=== PATIENT | male | born 1960 | race American Indian/Alaskan Native ===

== ENCOUNTER 2017-11-07 20:52 | Emergency (ER) | payer OTHER ==
[~2017-11-07] VITALS: Ht 177.8 cm; Wt 124.7 kg
[~2017-11-07 20:52] MED LIST: ARTHRITIS PAIN650 M1 PO; CYCLOBENZAPRINE10 MG PO; HYDROCODON-ACE1 EA10 PO; LEVETIRACETAM1000 MG PO; LIDOCAINE30 G TOP; LORAZEPAM INT2 MG/ML PO; MAPAP325 MG PO; NAPROXEN500 MG PO; NORCO 5-325 TA1 EACH PO; ONCE DAILY1 EACH PO; PAROXETINE HCL20 MG PO; POLYETHYLENE G255 GM PO; SEROQUEL25 MG PO; THIAMINE HCL100 MG PO; VALIUM5 MG PO; VITAMIN B-1100 MG PO
--- OUTSIDE RECORDS SUMMARY | 2017-11-07 21:52 | XMS | Clinical Summary ---
Demographics + + + | Address | [address] | | | [place] [address] | + + + | Home Phone | | + + + | Preferred Language | Unknown | + + + | Marital Status | Single | + + + | Sabianist Affiliation | Unknown | + + + | Race | White | + + + | Ethnic Group | Not or | + + + Author + + + | Author | NON REVENUE LOCATIONS | + + + | Organization | NON REVENUE LOCATIONS | + + + | Address | Unknown | + + + | Phone | Unavailable | + + + Support + + +---------+ + | Name | Relationship | Address | Phone | + + +---------+ + | LOR MCGUIRE & | ECON | Unknown | | | KRISTY | | | | + + +---------+ + Care Team Providers + +------+ + | Care Drug Room Operator Name | Role | Phone | + +------+ + PP | Unavailable | + +------+ + Source Comments BATSHEVA is fully live on both [facility] Allergies + + + + + + | Active Allergy | Reactions | Severity | Noted | Comments | | | | | Date | | + + + + + + | Penicillins | Wheez/Dyspnea, | High | 03/13/20 | | | | Pruritus, Rash | | 10 | | + + + + + + Current Medications Not on file Active Problems + + + | Problem | Noted Date | + + + | Cirrhosis (HCC) | 03/13/2010 | + + + | Esophageal varices (HCC) | 03/13/2010 | + + + Family History + + +------+ + | Medical History | Relation | Name | Comments | + + +------+ + | Hypertension | Mother | | | + + +------+ + + +------+--------+ + | Relation | Name | Status | Comments | + +------+--------+ + | Mother | | | | + +------+--------+ + Social History + +-------+ +--------+------+ | Tobacco Use | Types | Packs/Day | Years | Date | | | | | Used | | + +-------+ +--------+------+ | Never Smoker | | | | | + +-------+ +--------+------+ + + +---------+ + | Alcohol Use | Drinks/We | oz/Week | Comments | | | ek | | | + + +---------+ + | No | | | Says he quit drinking when he had a | | | | | variceal bleed (10/2008) | + + +---------+ + + + + | Sex Assigned at | Date Recorded | | | | + + + | Not on file | | + + + Last Filed Vital Signs + + + + | Vital Sign | Reading | Time Taken | + + + + | Blood Pressure | 104/65 | 03/13/2010 8:35 AM PDT | + + + + | Pulse | 97 | 03/13/2010 8:35 AM PDT | + + + + | Temperature | 36.6 C (97.8 F) | 03/13/2010 8:35 AM PDT | + + + + | Respiratory Rate | 16 | 03/13/2010 8:35 AM PDT | + + + + | Oxygen Saturation | - | - | + + + + | Inhaled Oxygen | - | - | | Concentration | | | + + + + | Weight | 120.2 kg (265 lb) | 03/13/2010 8:35 AM PDT | + + + + | Height | 176.5 cm (5' 9.5") | 03/13/2010 8:35 AM PDT | + + + + | Body Mass Index | 38.57 | 03/13/2010 8:35 AM PDT | + + + + Plan of Treatment + + + + + | Health Maintenance | Due Date | Last Done | Comments | + + + + + | INFLUENZA VACCINE | | | | | (FLU SHOT) | 7 | | | + + + + + Results Not on filefrom Last 3 Months
--- OUTSIDE RECORDS SUMMARY | 2017-11-07 21:52 | XMS | Clinical Summary ---
Demographics + + + | Address | [address] | | | [place] [address] | + + + | Home Phone | | + + + | Preferred Language | Unknown | + + + | Marital Status | Single | + + + | Yarsanism Affiliation | Unknown | + + + [...] Team Providers + +------+ + | Care Dub Room Engineer Name | Role | Phone | + +------+ + PP | Unavailable | + +------+ + Source Comments BATSHEVA is fully live on both [facility] and [facility]Patient.[facility] Allergies + + + + + + [...]
[2017-11-07] MEDS ORDERED: CEPHALEXIN500 MG PO (23:55)
[2017-11-07] MEDS ORDERED: MAXZIDE 37.5 MG-1 EA PO (23:55)
== END 2017-11-08 00:01 | disposition home or self-care (01) ==
LOC: ED 20:52
DX: R60.0 Localized edema (principal); E11.9 Type 2 diabetes mellitus without complications; Z88.0 Allergy status to penicillin; Z79.899 Other long term (current) drug therapy
CPT/HCPCS: 71045; 80053; 81001; 83880; 85025; 96374; 99283

== ENCOUNTER 2019-08-24 04:59 | Emergency (ER) | payer OTHER ==
[~2019-08-24] VITALS: Ht 177.8 cm; Wt 124.7 kg
--- OUTSIDE RECORDS SUMMARY | ~2019-08-24 | XMS | Encounter Summary ---
Demographics + + + | Address | [address] | | | [place] [address] | + + + | Home Phone | | + + + | Preferred Language | Unknown | + + + | Marital Status | Single | + + + | Adventist Affiliation | Unknown | + + + | Race | White | + + + | Ethnic Group | Not or | + + + Author + + + | Author | [facility] | + + + | Organization | [facility] | + + + | Address | [...] Team Providers + +------+ + | Care Granular Operator Name | Role | Phone | [...] | 2009 | on | Center at [facility] [address] | ([place] 05/30/2010 no | | | | [address] | [address] [place], [place] | HCC) | | | | Mailcode: OCD | [address] | | | | | [facility] | [phone] | | | | | and Healing, | | | | | | [address] | | | | | | [place], [place] | | | | | | [address] | | | | | | [phone] | | | +--------+ + + + [...]
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
--- OUTSIDE RECORDS SUMMARY | ~2019-08-24 | XMS | Encounter Summary ---
Demographics + + + | Address | [address] | | | [place] [address] | + + + | Home Phone | | + + + | Preferred Language | Unknown | + + + | Marital Status | Single | + + + | Tenriism Affiliation | Unknown | + + + [...] Team Providers + +------+ + | Care Medical Technologist Generalist Name | Role | Phone | + [...] | Transcriptions | + + | Interface, Drafter Seismograph In - 04/16/2006 1:08 AM PDT | | [address] | | [place], [place] [phone] | | [facility]ORDMed Rec No.: | | [id number] Date: [...] be done | | [place]. [place] were happy to splint him if [...] isgoing to follow up | | in [place], although, if cares to come back here, wewill be happy to see him in Dr. | | Rodo Maldonado, adult orthopedic clinic.Wade Villalta M.D.FARTUN/ellyoD: 02/17/2003T: | | 02/17/2003 12:31 [id number] | |OPERATIONS PERFORMED: The patient was taken [...] is | |going to follow up in [place], although, if cares to come back here, we | |will be happy to see him in Dr. Rodo Maldonado, adult orthopedic clinic. | | | | | | | |Wade Villalta M.D. | | | |[place] | | | | P | |[phone] | + + documented in this encounter Visit Diagnoses Not on filedocumented in this encounter"
--- OUTSIDE RECORDS SUMMARY | ~2019-08-24 | XMS | Encounter Summary ---
Demographics + + + | Address | [address] | | | [place] [address] | + + + | Home Phone [...] Author + + + | Author | [facility] | + + + | Organization | [facility] | + + + | Address [...] Team Providers + +------+ + | Care Emergency Veterinarian Name | Role | Phone | + [...] + + | 12/17/ | Documentati | Transplant | Kennedi Doyle | Liver Transplant | | 2009 | on | Coordinators [address] Jaylene Light, RN [address] | Referral (does not | | | | [address] [facility] | [facility] [address] | meet criteria) | | | | Rd [place], [place] | [place], [place] | | | | | [address] | [address] | | | | | [phone] | | | +--------+ + + + [...]
--- OUTSIDE RECORDS SUMMARY | ~2019-08-24 | XMS | Encounter Summary ---
Demographics + + + | Address | [address] | | | [place] [address] | + + + | Home Phone | | + + + | Preferred Language | Unknown | + + + | Marital Status | Single | + + + | Anglican Affiliation | Unknown | + + + | Race | White | + + + | Ethnic Group | Not or | + + + Author + + + | Author | [facility] | + + + | Organization | [facility] | + + + | Address | [...] Team Providers + +------+ + | Care Contact Center Professional Name | Role | Phone | + [...] + + | 01/23/ | Documentati | Transplant | Kennedi Doyle | Other (Hep clinic | | 2009 | on | Coordinators [address] | Kuldeep, RN [address] | appointment) | | | | [address] | [address] | | | | | Rd [place], [place] | [place], [place] | | | | | [address] | [address] | | | | | [phone] | | | +--------+ + + + [...]
--- OUTSIDE RECORDS SUMMARY | ~2019-08-24 | XMS | Encounter Summary ---
Demographics + + + | Address | [address] | | | [place] [address] | + + + | Home Phone [...] + + + | Author | [facility] | + + + | Organization | [facility] | + + + | [...] Team Providers + +------+ + | Care Mechanical Spreader Operator Name | Role | Phone | + +------+ + PCP | Unavailable | + +------+ + Encounter Details +--------+ + + + + | Date | Type | Department | Care Team | Description | +--------+ + + + + | 03/25/ | Abstract | [facility] | Azeem Dietrich | | | 2010 | | [place] [address] [address] | | | | | [address] | [place], [place] | | | | | Mailcode: OC8D | [address] | | | | | [facility] | [phone] | | | | | and [address], | | | | | | [address] | | | | | | [place], [place] | | | | | | [address] | | | | | | [phone] | | | +--------+ + + + [...]
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
--- OUTSIDE RECORDS SUMMARY | ~2019-08-24 | XMS | Encounter Summary ---
Demographics + + + | Address | [address] | | | [place] [address] | + + + | Home Phone | | + + + | Preferred Language | Unknown | + + + | Marital Status | Single | + + + | Cheondoism Affiliation | Unknown | + + + [...] Team Providers + +------+ + | Care Oil Laboratory Analyst Name | Role | Phone | + +------+ + PCP | Unavailable | + +------+ + Encounter Details +--------+ + + + + | Date | Type | Department | Care Team | Description | +--------+ + + + + | 02/17/ | Results | | Petra Reynolds, | | | 2002 | Only | | MD Chaka Torres | | | | | | [facility] and | | | | | | Counseling [address] | | | | | | [address] [place], | | | | | | [place] [address] | | | | | | [phone] | | | | | | | [...] + +--------+ + + + | CT RECONSTRUCTION | Routin | 02/17/2003 | | Results for this | | [facility]ITAL | e | 6:35 AM | | procedure are in the | | | | PDT | | results section. | + +--------+ + + + | CT SPINE LUMBAR WO | Urgent | 02/17/2003 | | Results for this | | CONTRAST | | 6:35 AM | | procedure are in the | | | | PDT | | results section. | + +--------+ + + + | X-RAY TIBIA & FIBULA | Urgent | 02/17/2003 | | Results for this | | 2 VIEWS RT | | 4:45 AM | | procedure are in the | | | | PDT | | results section. | + +--------+ + + + | X-RAY SPINE | Urgent | 02/17/2003 | | Results for this | | LUMBOSACRAL 3 VIEWS | | 4:45 AM | | procedure are in the | | | | PDT | | results section. | + +--------+ + + + | X-RAY PELVIS 1 VIEW | Urgent | 02/17/2003 | | Results for this | | | | 4:45 AM | | procedure are in the | | | | PDT | | results section. | + +--------+ + + + | X-RAY ANKLE 3 VIEWS | Urgent | 02/17/2003 | | Results for this | | RIGHT | | 4:45 AM | | procedure are in the | | | | PDT | | results section. | + +--------+ + + + documented in this encounter Results CT RECONSTRUCTION [facility] (02/17/2003 6:35 AM PDT) + + + + + + | Component | Value | Ref Range | Performed | Pathologist | | | | | At | Signature | + + + + + + | CT | Radiologist 1: FARIDEH, | | | | | RECONSTRUCT | KELLY Lynch, | | | | | ION CHECO | M.D.-Radiologist 2: | | | | | | KELLY GONG, | | | | | | M.D.LUMBAR SPINE CT: | | | | | | 02/17/2003 Dictated: | | | | | | 02/17/2003 COMPARISON: | | | | | | None. CLINICAL HISTORY: | | | | | | This is a 42-year-old | | | | | | male status post fall | | | | | | withsevere back pain. | | | | | | TECHNIQUE: Contiguous 3 | | | | | | mm transaxial images | | | | | | were obtained from T12 | | | | | | tothe mid sacrum. | | | | | | Sagittal and coronal | | | | | | reformations were also | | | | | | performed. FINDINGS: | | | | | | There is straightening | | | | | | of the lumbar spine. The | | | | | | vertebralbody heights | | | | | | and alignments are | | | | | | maintained. No fracture | | | | | | is visible. Mild L5-S1 | | | | | | annulus bulge is noted. | | | | | | This does not result in | | | | | | anysignificant canal or | | | | | | foraminal stenosis. Up | | | | | | to three ill defined | | | | | | lucencies are visible in | | | | | | the iliac | | | | | | wingsbilaterally. These | | | | | | demonstrate nonsclerotic | | | | | | margins with no | | | | | | corticalextension. | | | | | | IMPRESSION: 1. No | | | | | | evidence of fracture or | | | | | | malalignment. 2. | | | | | | Indeterminate bilateral | | | | | | iliac wing lucencies. | | | | | | These could | | | | | | representatypical | | | | | | hemangiomas. Metastatic | | | | | | disease cannot be | | | | | | excluded. END OF | | | | | | IMPRESSION: Addendum # 1 | | | | | | There is no change to | | | | | | this report. The | | | | | | addendum is | | | | | | toadministratively link | | | | | | the associated | | | | | | examinations to one | | | | | | report. | | | | + + + + + + + + | Specimen | + + | | + + + +---------+ + + | Performing | Address | City/State/Zipcode | Phone Number | | Organization | | | | + +---------+ + + | [facility] DEPARTMENT OF | | | | | RADIOLOGY | | | | + +---------+ + + CT SPINE LUMBAR WO CONTRASTR (02/17/2003 6:35 AM PDT) + + + + + + | Component | Value | Ref Range | Performed | Pathologist | | | | | At | Signature | + + + + + + | CT LUMBAR | Radiologist 1: FARIDEH | | | | | SPINE WO | KELLY Lynch | | | | | CONTRAST | M.DGris-Radiologist 2: | | | | | | KELLY GONG, | | | | | | M.D.LUMBAR SPINE CT: | | | | | | 02/17/2003 Dictated: | | | | | | 02/17/2003 COMPARISON: | | | | | | None. CLINICAL HISTORY: | | | | | | This is a 42-year-old | | | | | | male status post fall | | | | | | withsevere back pain. | | | | | | TECHNIQUE: Contiguous 3 | | | | | | mm transaxial images | | | | | | were obtained from T12 | | | | | | tothe mid sacrum. | | | | | | Sagittal and coronal | | | | | | reformations were also | | | | | | performed. FINDINGS: | | | | | | There is straightening | | | | | | of the lumbar spine. The | | | | | | vertebralbody heights | | | | | | and alignments are | | | | | | maintained. No fracture | | | | | | is visible. Mild L5-S1 | | | | | | annulus bulge is noted. | | | | | | This does not result in | | | | | | anysignificant canal or | | | | | | foraminal stenosis. Up | | | | | | to three ill defined | | | | | | lucencies are visible in | | | | | | the iliac | | | | | | wingsbilaterally. These | | | | | | demonstrate nonsclerotic | | | | | | margins with no | | | | | | corticalextension. | | | | | | IMPRESSION: 1. No | | | | | | evidence of fracture or | | | | | | malalignment. 2. | | | | | | Indeterminate bilateral | | | | | | iliac wing lucencies. | | | | | | These could | | | | | | representatypical | | | | | | hemangiomas. Metastatic | | | | | | disease cannot be | | | | | | excluded. END OF | | | | | | IMPRESSION: Addendum # 1 | | | | | | There is no change to | | | | | | this report. The | | | | | | addendum is | | | | | | toadministratively link | | | | | | the associated | | | | | | examinations to one | | | | | | report. | | | | + + + + + + + + | Specimen | + + | | + + + +---------+ + + | Performing | Address | City/State/Zipcode | Phone Number | | Organization | | | | + +---------+ + + | [facility] DEPARTMENT OF | | | | | RADIOLOGY | | | | + +---------+ + + TIBIA & FIBULA 2 VIEWS RT (02/17/2003 4:45 AM PDT) + + + + + + | Component | Value | Ref Range | Performed | Pathologist | | | | | At | Signature | + + + + + + | TIBIA AND | Radiologist 1: | | | | | FIBULA 2 | HIPOLITO CHARLES, | | | | | VIEWS RT | M.D.-Radiologist 2: | | | | | | HUSSAIN BALTAZAR TIBIA | | | | | | AND FIBULA: 02/17/2003 | | | | | | Dictated: 02/17/2003 | | | | | | CLINICAL HISTORY: | | | | | | Trauma. TECHNIQUE: AP, | | | | | | lateral right tib/fib. | | | | | | FINDINGS: There is an | | | | | | oblique fracture of the | | | | | | distal | | | | | | fibulardiametaphysis | | | | | | with anterior angulation | | | | | | and slight lateral | | | | | | displacementof the | | | | | | distal fracture | | | | | | fragment. There is | | | | | | marked soft tissue | | | | | | swellingabout the ankle. | | | | | | IMPRESSION: Oblique | | | | | | distal fibular fracture | | | | | | with anterior angulation | | | | | | and lateraldisplacement | | | | | | of the distal fragment. | | | | | | END OF IMPRESSION: | | | | + + + + + + + + | Specimen | + + | | + + + +---------+ + + | Performing | Address | City/State/Zipcode | Phone Number | | Organization | | | | + +---------+ + + | [facility] DEPARTMENT OF | | | | | RADIOLOGY | | | | + +---------+ + + SPINE LUMBOSACRAL 3 VIEWS (02/17/2003 4:45 AM PDT) + + + + + + | Component | Value | Ref Range | Performed | Pathologist | | | | | At | Signature | + + + + + + | SPINE | Radiologist 1: | | | | | LUMBOSACRAL | HIPOLITO CHARLES | | | | | 3 VIEWS | M.Milana-Radiologist 2: | | | | | | SEYMOUR BALTAZAR | | | | | | SPINE: 02/17/2003 | | | | | | Dictated: 02/17/2003 | | | | | | CLINICAL HISTORY: | | | | | | Trauma. TECHNIQUE: AP | | | | | | and lateral lumbar | | | | | | spine. FINDINGS: There | | | | | | is minimal anterior | | | | | | spurring at the lower | | | | | | lumbarspine, otherwise | | | | | | the lumbar vertebrae are | | | | | | normally aligned with | | | | | | noevidence of fracture | | | | | | or subluxation. | | | | | | IMPRESSION: Minimal | | | | | | lower lumbar | | | | | | degenerative disc | | | | | | disease without evidence | | | | | | offracture. END OF | | | | | | IMPRESSION: | | | | + + + + + + + + | Specimen | + + | | + + + +---------+ + + | Performing | Address | City/State/Zipcode | Phone Number | | Organization | | | | + +---------+ + + | [facility] DEPARTMENT OF | | | | | RADIOLOGY | | | | + +---------+ + + ANKLE 3 VIEWS RIGHT (02/17/2003 4:45 AM PDT) + + + + + + | Component | Value | Ref Range | Performed | Pathologist | | | | | At | Signature | + + + + + + | ANKLE 3 | Radiologist 1: | | | | | VIEWS RIGHT | HIPOLITO CHARLES, | | | | | | M.Milana-Radiologist 2: | | | | | | HUSSAIN BALTAZAR ANKLE | | | | | | - THREE VIEWS: | | | | | | 02/17/2003 Dictated: | | | | | | 02/17/2003 CLINICAL | | | | | | HISTORY: Trauma. | | | | | | TECHNIQUE: AP, lateral | | | | | | mortise view right | | | | | | ankle. FINDINGS: An | | | | | | oblique fracture extends | | | | | | through the distal | | | | | | shaft of theright fibula | | | | | | with anterior | | | | | | angulation and lateral | | | | | | displacement of | | | | | | thedistal fragment. | | | | | | There is slight lateral | | | | | | subluxation of the talar | | | | | | domewith respect to the | | | | | | tibia with widening of | | | | | | the medial joint | | | | | | space.There is widening | | | | | | of the distal | | | | | | syndesmosis and marked | | | | | | surroundingsoft tissue | | | | | | swelling. IMPRESSION: 1. | | | | | | Oblique distal fibular | | | | | | fracture with lateral | | | | | | displacement of | | | | | | thedistal fragment. 2. | | | | | | Widened medial tibial | | | | | | talar joint space and | | | | | | syndesmosis | | | | | | consistentwith | | | | | | ligamentous injury. | | | | | | END OF IMPRESSION: | | | | + + + + + + + + | Specimen | + + | | + + + +---------+ + + | Performing | Address | City/State/Zipcode | Phone Number | | Organization | | | | + +---------+ + + | [facility] DEPARTMENT OF | | | | | RADIOLOGY | | | | + +---------+ + + PELVIS 1 VIEW (02/17/2003 4:45 AM PDT) + + + + + + | Component | Value | Ref Range | Performed | Pathologist | | | | | At | Signature | + + + + + + | PELVIS 1 | Radiologist 1: | | | | | VIEW | HIPOLITO CHARLES, | | | | | | M.Milana-Radiologist 2: | | | | | | ROYA BALTAZAR: | | | | | | 02/17/2003 Dictated: | | | | | | 02/17/2003 CLINICAL | | | | | | HISTORY: Trauma. | | | | | | TECHNIQUE: AP pelvis. | | | | | | FINDINGS: The bones of | | | | | | the pelvis are intact | | | | | | with no evidence | | | | | | offracture or | | | | | | dislocation. The | | | | | | inferior portions of the | | | | | | ischialtuberosities are | | | | | | excluded. IMPRESSION: | | | | | | Normal pelvis radiograph | | | | | | within limitation of | | | | | | the study outlinedabove. | | | | | | END [...] | | + +---------+ + + | [facility] DEPARTMENT OF | | | | | RADIOLOGY | | | | + +---------+ + + documented in this encounter Visit Diagnoses Not on filedocumented in this encounter"
--- OUTSIDE RECORDS SUMMARY | ~2019-08-24 | XMS | Encounter Summary ---
Demographics + + + | Address | [address] | | | [place] [address] | + + + | Home Phone | | + + + | Preferred Language | Unknown | + + + | Marital Status | | + + + | Tenriism Affiliation | Unknown | + + + | Race | Unknown | + + + | Ethnic Group | Unknown | + + + Author + + + | Author | [facility] | | | and Olegarioana | + + + | Organization | [facility] | | | and [...] Team Providers + +------+ + | Care Communications Assistant Name | Role | Phone | + +------+ + PCP | Unavailable | + +------+ + Encounter Details +--------+ + + + + | Date | Type | Department | Care Team | Description | +--------+ + + + + | 09/11/ | Hospital | [facility] | Rosa Isela Vásquez, | End Stage Renal | | 2008 - | Encounter | [facility] | [address] | Disease (HCC) | | | | CARE FLOOR [address] | [facility] [address], | | | [address]/ | | [address] | [place] [address] | | | 2008 | | [place], [place] | [phone] | | | | | [address] | | | | | | [phone] | Maria Luisa Barry, | | | | | | [address] | | | | | | [place] [address] | | | | | | [phone] | | | | | | | [...] XR CHEST 1 VIEW | Routin | 09/13/2009 | | Results for this | | | e | 5:09 AM | | procedure are in the | | | | PST | | results section. | + +--------+ + + + | XR ABDOMEN AP | Routin | 09/12/2009 | | Results for this | | | e | 12:11 PM | | procedure are in the | | | | PST | | results section. | + +--------+ + + + | MRI BRAIN WO | Routin | 09/12/2009 | | Results for this | | CONTRAST ANGIOGRAM | e | 11:17 AM | | procedure are in the | | HEAD WO CONTRAST | | PST | | results section. | + +--------+ + + + | XR CHEST 1 VIEW | Routin | 09/12/2009 | | Results for this | | | e | 5:40 AM | | procedure are in the | | | | PST | | results section. | + +--------+ + + + | CT HEAD WO CONTRAST | Routin | 09/12/2009 | | Results for this | | | e | 2:49 AM | | procedure are in the | | | | PST | | results section. | + +--------+ + + + | XR CHEST 1 VIEW | Routin | 09/11/2009 | | Results for this | | | e | 8:25 PM | | procedure are in the | | | | PST | | results section. | + +--------+ + + + documented in this encounter Results XR Chest 1 Vw (09/13/2009 5:09 AM PST) + + | Specimen | + + | | + + + + + | Narrative | Performed At | + + + | [facility] | | | [facility] [address] | | | , | | | [id number]/RADIOLOGY Patient Name: EVANS MCGUIRE Date of | | | : 1960 Medical Record: [id number] Account: | | | [id number] I/P/JAZMÍN / Exam Date/Time: | | | 09/13/2009 05:00 A Ordering Provider: GIGI BEYER Order | | | Detail: 6980 / / HDI Exam Description: XR CHEST 1 VIEW | | | | | | CHEST SINGLE VIEW 09/13/2009 AT 4:40 AM HISTORY A 48-year-old | | | male with mental status changes in the intensive care unit with lines | | | and tubes. FINDINGS Status post extubation and removal of the | | | nasogastric tube. Cardiac silhouette unremarkable. Lungs clear. Bones | | | and soft tissues unremarkable. IMPRESSION No acute | | | cardiopulmonary process. Read by JEFF AMANDA MD | | | 09/13/2009 10:16 A Electronically Signed by JEFF AMANDA MD | | | 09/13/2009 01:51 P A | | | 10:28 A /[id number]/[id number]/ cc: MD GIGI GARCIA | | | MD PEPITO | | + + + + + | Procedure Note | + + | Marlon Santamaria Conversion - 05/14/2019 10:02 PM PDT | | [facility] | | [facility] [address] | | , | | | | [id number]/RADIOLOGY | | | | Patient Name: EVANS MCGUIRE | | Date of : 1960 | | Medical Record: [id number] | | Account: [id number] | | I/P/[facility] / | | | | | | Exam Date/Time: 09/13/2009 05:00 A | | Ordering Provider: GIGI BEYER | | Order Detail: [id number] / / HDI | | Exam Description: XR CHEST 1 VIEW | | | | CHEST SINGLE VIEW 09/13/2009 AT 4:40 AM | | | | HISTORY | | A 48-year-old male with mental status changes in the intensive care unit | | with lines and tubes. | | | | FINDINGS | | Status post extubation and removal of the nasogastric tube. Cardiac | | silhouette unremarkable. Lungs clear. Bones and soft tissues | | unremarkable. | | | | IMPRESSION | | No acute cardiopulmonary process. | | | | Read by | | JEFF AMANDA MD 09/13/2009 10:16 A | | Electronically Signed by | | JEFF AMANDA MD 09/13/2009 01:51 P | | | | A | | A | | /[id number]/[id number]/ | | cc: JEFF AMANDA MD | | GIGI BEYER MD | + + XR Abdomen AP (09/12/2009 12:11 PM PST) + + | Specimen | + + | | + + + + + | Narrative | Performed At | + + + | [facility] | | | [facility] [address] | | | , | | | [id number]/RADIOLOGY Patient Name: EVANS MCGUIRE Date of | | | : 1960 Medical Record: [id number] Account: | | | [id number] I/P/[facility] / Exam Date/Time: | | | 09/12/2009 12:00 P Ordering Provider: GIGI BEYER Order | | | Detail: [id number] / / HDI Exam Description: XR ABDOMEN 1 VIEW | | | | | | ABDOMEN 09/12/2009 HISTORY Orogastric tube placement. | | | TECHNIQUE Two portable supine films of the chest including the upper | | | abdomen are limited, due to respiratory motion. FINDINGS I do | | | see an orogastric tube extending into the stomach, at least to the | | | body of the stomach. Respiratory motion limits evaluation. ET tube is | | | seen, mid thoracic trachea. No definite infiltrates are seen. The | | | heart size is normal. IMPRESSION 1. Orogastric tube extends into | | | the stomach at least to the body of the stomach, but respiratory | | | motion limits evaluation. 2. Endotracheal tube, mid thoracic | | | trachea. Read by JOE CASILLAS MD 09/12/2009 01:48 P | | | Electronically Signed by JOE CASILLAS MD 09/12/2009 09:30 P DD: | | | 09/12/2009 01:48 P P J/carlota/[id number]/ cc: | | | MD GIGI ARTHUR MD | | + + + + + | Procedure Note | + + | Marlon Santamaria Conversion - 05/14/2019 10:02 PM PDT | | [facility] | | [facility] [address] | | , | | | | [id number]/RADIOLOGY | | | | Patient Name: EVANS MCGUIRE | | Date of : 1960 | | Medical Record: [id number] | | Account: [id number] | | I/P/CCC / | | | | | | Exam Date/Time: 09/12/2009 12:00 P | | Ordering Provider: GIGI BEYER | | Order Detail: [id number] / / HDI | | Exam Description: XR ABDOMEN 1 VIEW | | | | ABDOMEN 09/12/2009 | | | | HISTORY | | Orogastric tube placement. | | | | TECHNIQUE | | Two portable supine films of the chest including the upper abdomen are | | limited, due to respiratory motion. | | | | FINDINGS | | I do see an orogastric tube extending into the stomach, at least to the | | body of the stomach. Respiratory motion limits evaluation. ET tube is | | seen, mid thoracic trachea. No definite infiltrates are seen. The heart | | size is normal. | | | | IMPRESSION | | 1. Orogastric tube extends into the stomach at least to the body of the | | stomach, but respiratory motion limits evaluation. | | 2. Endotracheal tube, mid thoracic trachea. | | | | | | | | | | Read by | | JOE CASILLAS MD 09/12/2009 01:48 P | | Electronically Signed by | | JOE CASILLAS MD 09/12/2009 09:30 P | | | | P | | P | | [id number]/ | | cc: JOE CASILLAS MD | | GIGI BEYER MD | + + MRI Brain Wo MRA Head Wo (09/12/2009 11:17 AM PST) + + | Specimen | + + | | + + + + + | Narrative | Performed At | + + + | [facility] | | | [facility] [address] | | | , | | | [id number]/RADIOLOGY Patient Name: EVANS MCGUIRE Date of | | | : 1960 Medical Record: [id number] Account: | | | [id number] I/P/JAZMÍN / Exam Date/Time: | | | 09/12/2009 07:00 A Ordering Provider: MARIA LUISA BARRY | | | Detail: 830 / / R Exam Description: MRI BRAIN AND MRA HEAD UN | | | | | | MRI AND MRA BRAIN WITHOUT CONTRAST 09/12/2009 HISTORY Mental | | | status changes. COMPARISON CT brain without contrast 09/12/2009. | | | TECHNIQUE 3D MRA images were obtained through the brain, with MIP | | | reformations of the anterior and posterior circulation. Sagittal and | | | axial FLAIR axial diffusion axial T2 axial GRE axial T1 weighted | | | images of the brain were obtained. FINDINGS Mild atheromatous | | | changes in the proximal bilateral anterior cerebral arteries is | | | noted, without significant stenosis. No significant abnormalities of | | | the middle or posterior cerebral arteries or balance of the anterior | | | and posterior circulations. Diffusion images are unremarkable. | | | There are no areas of abnormal signal within the brain parenchyma. | | | Cortical sulci, basal cisterns, ventricles appear unremarkable. | | | There is an air-fluid level in the left maxillary sinus, with mild | | | mucosal thickening in the left sphenoid sinus and in the left greater | | | than right ethmoid sinuses diffusely. Debris is noted in the | | | posterior aspect of the nasopharynx. Oral tube is noted. | | | IMPRESSION 1. No evidence of brain infarct. 2. Mild atheromatous | | | changes of the anterior cerebral arteries proximally, with no | | | significant stenoses. Otherwise unremarkable MRA. Read by | | | JOE CASILLAS MD 09/12/2009 11:20 A Electronically Signed by JOE | | | Kuldeep CASILLAS MD 09/12/2009 03:23 P A DT: | | | 09/12/2009 11:55 A [facility]/[id number]/ cc: JOE CASILLAS MD | | | MD GIGI TOSCANO MD | | + + + + + | Procedure Note | + + | Marlon Santamaria Conversion - 05/14/2019 10:02 PM PDT | | [facility] | | [facility] [address] | | , | | | | [id number]/RADIOLOGY | | | | Patient Name: EVANS MCGUIRE | | Date of : 1960 | | Medical Record: [id number] | | Account: [id number] | | I/P/[facility] / | | | | | | Exam Date/Time: 09/12/2009 07:00 A | | Ordering Provider: MARIA LUISA BARRY | | Order Detail: 830 / / HMR | | Exam Description: MRI BRAIN AND MRA HEAD UN | | | | MRI AND MRA BRAIN WITHOUT CONTRAST 09/12/2009 | | | | HISTORY | | Mental status changes. | | | | COMPARISON | | CT brain without contrast 09/12/2009. | | | | TECHNIQUE | | 3D MRA images were obtained through the brain, with MIP reformations of | | the anterior and posterior circulation. Sagittal and axial FLAIR axial | | diffusion axial T2 axial GRE axial T1 weighted images of the brain were | | obtained. | | | | FINDINGS | | Mild atheromatous changes in the proximal bilateral anterior cerebral | | arteries is noted, without significant stenosis. No significant | | abnormalities of the middle or posterior cerebral arteries or balance of | | the anterior and posterior circulations. | | | | Diffusion images are unremarkable. There are no areas of abnormal signal | | within the brain parenchyma. Cortical sulci, basal cisterns, ventricles | | appear unremarkable. | | | | There is an air-fluid level in the left maxillary sinus, with mild | | mucosal thickening in the left sphenoid sinus and in the left greater | | than right ethmoid sinuses diffusely. Debris is noted in the posterior | | aspect of the nasopharynx. Oral tube is noted. | | | | IMPRESSION | | 1. No evidence of brain infarct. | | 2. Mild atheromatous changes of the anterior cerebral arteries | | proximally, with no significant stenoses. Otherwise unremarkable | | MRA. | | | | | | Read by | | JOE CASILLAS MD 09/12/2009 11:20 A | | Electronically Signed by | | JOE CASILLAS MD 09/12/2009 03:23 P | | | | A | | A | | [facility]/[id number]/ | | cc: JOE CASILLAS MD | | MARIA LUISA BARRY MD | | GIGI BEYER MD | + + XR Chest 1 Vw (09/12/2009 5:40 AM PST) + + | Specimen | + + | | + + + + + | Narrative | Performed At | + + + | [facility] | | | [facility] [address] | | | , | | | [id number]/Diagnostic Outsourced Patient Name: EVANS MCGUIRE | | | Date of : 1960 Medical Record: [id number] Account: | | | [id number] I/P/[facility] / Exam Date/Time: | | | 09/12/2009 05:00 A Ordering Provider: MARIA LUISA BARRY | | | Detail: 6980 / / HDI Exam Description: XR CHEST 1 VIEW | | | | | | CHEST 1 VIEW 09/12/2009 CLINICAL HISTORY Evaluate lungs, lines, | | | and tubes. FINDINGS Lung apices are not included on the image. | | | There is an endotracheal tube with the tip 2.8 cm above the lacey. | | | Heart size is normal. There are small lung volumes with minimal | | | haziness bilaterally. No fidel alveolar consolidation or pleural | | | effusion is seen. Pulmonary vascular congestion is not seen. | | | IMPRESSION 1. Lung apices are not included. 2. Endotracheal tube | | | tip 2.8 cm above the lacey. 3. Small lung volumes with minimal | | | interstitial haziness bilaterally. Read by LYNNE VILLEGAS MD | | | 09/12/2009 01:22 A Electronically Signed by LYNNE VILLEGAS MD | | | 09/15/2009 06:24 A A | | | 09:19 A RONALD/[id number]/[id number]/ cc: MD LYNNE TOSCANO | | | MD GIGI VILLEGAS MD | | + + + + + | Procedure Note | + + | Marlon Santamaria Conversion - 05/14/2019 10:02 PM PDT | | [facility] | | [facility] [address] | | , | | | | [id number]/Diagnostic Outsourced | | | | Patient Name: EVANS MCGUIRE | | Date of : 1960 | | Medical Record: [id number] | | Account: [id number] | | I/P/[facility] / | | | | | | Exam Date/Time: 09/12/2009 05:00 A | | Ordering Provider: MARIA LUISA BARRY | | Order Detail: [id number] / / HDI | | Exam Description: XR CHEST 1 VIEW | | | | CHEST 1 VIEW 09/12/2009 | | | | CLINICAL HISTORY | | Evaluate lungs, lines, and tubes. | | | | FINDINGS | | Lung apices are not included on the image. There is an endotracheal | | tube with the tip 2.8 cm above the lacey. Heart size is normal. There | | are small lung volumes with minimal haziness bilaterally. No fidel | | alveolar consolidation or pleural effusion is seen. Pulmonary vascular | | congestion is not seen. | | | | IMPRESSION | | 1. Lung apices are not included. | | 2. Endotracheal tube tip 2.8 cm above the lacey. | | 3. Small lung volumes with minimal interstitial haziness bilaterally. | | | | Read by | | LYNNE VILLEGAS MD 09/12/2009 01:22 A | | Electronically Signed by | | LYNNE VILLEGAS MD 09/15/2009 06:24 A | | | | A | | A | | MM/[id number]/ | | cc: MARIA LUISA BARRY MD | | LYNNE VILLEGAS MD | | GIGI BEYER MD | + + CT Head wo Contrast (09/12/2009 2:49 AM PST) + + | Specimen | + + | | + + + + + | Narrative | Performed At | + + + | [facility] | | | [facility] [address] | | | , | | | [id number]/Diagnostic Outsourced Patient Name: EVANS MCGUIRE | | | Date of : 1960 Medical Record: [id number] Account: | | | [id number] I/P/[facility] / Exam Date/Time: | | | 09/12/2009 02:15 A Ordering Provider: MARIA LUISA BARRY Order | | | Detail: 4780 / / HCT Exam Description: CT HEAD UN | | | | | | HEAD CT WITHOUT CONTRAST 09/12/2009 CLINICAL HISTORY Rule out | | | infarct. TECHNIQUE Axial noncontrast images were obtained. | | | COMPARISON 09/11/2009. FINDINGS No focal areas of abnormally | | | increased or decreased attenuation are seen in the brain parenchyma. | | | No mass, mass effect, or midline shift is seen. No intracranial | | | hemorrhage or extraaxial fluid collections are noted. CSF spaces | | | appear normal. Bone windows do not demonstrate a depressed skull | | | fracture. Endotracheal tube and nasogastric tube are in place. | | | IMPRESSION No acute intracranial abnormality. Read by LYNNE | | | MD BAKARI 09/12/2009 03:06 A Electronically Signed by LYNNE VILLEGAS | | | 09/15/2009 06:24 A A | | | 08:58 A MM/onel/[id number]/ cc: MD LYNNE TOSCANO | | | MD GIGI VILLEGAS MD | | + + + + + | Procedure Note | + + | Marlon Santamaria Conversion - 05/14/2019 10:02 PM PDT | | [facility] | | [facility] [address] | | , | | | | [id number]/Diagnostic Outsourced | | | | Patient Name: EVANS MCGUIRE | | Date of : 1960 | | Medical Record: [id number] | | Account: [id number] | | I/P/[facility] / | | | | | | Exam Date/Time: 09/12/2009 02:15 A | | Ordering Provider: MARIA LUISA BARRY | | Order Detail: [id number] / / HCT | | Exam Description: CT HEAD UN | | | | HEAD CT WITHOUT CONTRAST 09/12/2009 | | | | CLINICAL HISTORY | | Rule out infarct. | | | | TECHNIQUE | | Axial noncontrast images were obtained. | | | | COMPARISON | | 09/11/2009. | | | | FINDINGS | | No focal areas of abnormally increased or decreased attenuation are seen | | in the brain parenchyma. No mass, mass effect, or midline shift is seen. | | No intracranial hemorrhage or extraaxial fluid collections are noted. | | CSF spaces appear normal. Bone windows do not demonstrate a depressed | | skull fracture. Endotracheal tube and nasogastric tube are in place. | | | | IMPRESSION | | No acute intracranial abnormality. | | | | Read by | | LYNNE VILLEGAS MD 09/12/2009 03:06 A | | Electronically Signed by | | LYNNE VILLEGAS MD 09/15/2009 06:24 A | | | | A | | A | | MM/onel/[id number]/ | | cc: MARIA LUISA BARRY MD | | YLNNE VILLEGAS MD | | GIGI BEYER MD | + + XR Chest 1 Vw (09/11/2009 8:25 PM PST) + + | Specimen | + + | | + + + + + | Narrative | Performed At | + + + | [facility] | | | [facility] [address] | | | , | | | [id number]/RADIOLOGY Patient Name: EVANS MCGUIRE Date of | | | : 1960 Medical Record: [id number] Account: | | | [id number] I/P/[facility] / Exam Date/Time: | | | 09/11/2009 08:11 P Ordering Provider: MARIA LUISA BARRY Order | | | Detail: 6980 / / HDI Exam Description: XR CHEST 1 VIEW | | | | | | CHEST ONE VIEW 09/11/2009 HISTORY Check tubes and lines. | | | TECHNIQUE AP portable view of the chest, 2015 hours was the initial | | | chest x-ray for this patient. FINDINGS There is an endotracheal | | | tube present just above the level of the lacey. The lungs are | | | expanded. No pneumothorax and no segmental infiltrate. No significant | | | effusion. No displaced fractures identified. There is a nasogastric | | | tube that extends below the level of the diaphragm and the tip is | | | likely in the stomach. IMPRESSION Endotracheal tube as described. | | | Read by RONNY RAYA MD 09/11/2009 11:01 P Electronically | | | Signed by RONNY RAYA MD 09/12/2009 11:29 P DD: | | | 09/11/2009 11:01 P P [id number]/ cc: | | | MD MARIA LUISA LITTLE MD HANI S | | | MD PEPITO | | + + + + + | Procedure Note | + + | Marlon Santamaria Conversion - 05/14/2019 10:02 PM PDT | | [facility] | | [facility] [address] | | , | | | | [id number]/RADIOLOGY | | | | Patient Name: EVANS MCGUIRE | | Date of : 1960 | | Medical Record: [id number] | | Account: [id number] | | I/P/CCC / | | | | | | Exam Date/Time: 09/11/2009 08:11 P | | Ordering Provider: MARIA LUISA BARRY | | Order Detail: 6980 / / HDI | | Exam Description: XR CHEST 1 VIEW | | | | CHEST ONE VIEW 09/11/2009 | | | | HISTORY | | Check tubes and lines. | | | | TECHNIQUE | | AP portable view of the chest, 2015 hours was the initial chest x-ray | | for this patient. | | | | FINDINGS | | There is an endotracheal tube present just above the level of the | | lacey. The lungs are expanded. No pneumothorax and no segmental | | infiltrate. No significant effusion. No displaced fractures identified. | | There is a nasogastric tube that extends below the level of the | | diaphragm and the tip is likely in the stomach. | | | | IMPRESSION | | Endotracheal tube as described. | | | | Read by | | RONNY RAYA MD 09/11/2009 11:01 P | | Electronically Signed by | | RONNY RAYA MD 09/12/2009 11:29 P | | | | P | | P | | [id number]/ | | cc: RONNY RAYA MD | | MARIA LUISA BARRY MD | | GIGI BEYER MD | + + documented in this encounter Visit Diagnoses + + | Diagnosis | + + | End stage renal disease (HCC) End stage renal disease | + + documented in this encounter"
--- OUTSIDE RECORDS SUMMARY | ~2019-08-24 | XMS | Encounter Summary ---
Demographics + + + | Address | [address] | | | [place] [address] | + + + | Home Phone | | + + + | Preferred Language | Unknown | + + + | Marital Status | | + + + | Mormon Affiliation | Unknown | + + + | Race | Unknown | + + + | Ethnic Group | Unknown | + + + Author + + + | Author | [facility] | | | and Olegarioana | + + + | Organization | [facility] | | [...] Team Providers + +------+ + | Care Sous Chef Kitchen Manager Name | Role | Phone | + +------+ + PCP | Unavailable | + +------+ + Encounter Details +--------+ + + + + | Date | Type | Department | Care Team | Description | +--------+ + + + + | 10/11/ | Hospital | [facility] | Conversion | Headache(784.0) | | 2015 | Encounter | CONVERSION [address] | Transaction, | | | | | [address] | Provider Unknown | | | | | [place], [place] | [phone] | | | | | [address] | | | | | | [phone] | | | +--------+ + + + [...]
--- OUTSIDE RECORDS SUMMARY | ~2019-08-24 | XMS | Encounter Summary ---
Demographics + + + | Address | [address] | | | [place] [address] | + + + | Home Phone | | + + + | Preferred Language | Unknown | + + + | Marital Status | | + + + | Catholic Affiliation | Unknown | + + + | Race | Unknown | + + + | Ethnic Group | Unknown | + + + Author + + + | Author | [facility] | | | and Olegarioana | + + + | Organization | [facility] | | | [...] Team Providers + +------+ + | Care Customer Service Manager Name | Role | Phone | + +------+ + PCP | Unavailable | + +------+ + Encounter Details +--------+ + + + + | Date | Type | Department | Care Team | Description | +--------+ + + + + | 09/04/ | Hospital | [facility] GENER[facility] IP | Conversion | Pain | | 2014 | Encounter | CONVERSION [address] | Transaction, | | | | | [address] | Provider Unknown | | | | | [facility], [place] | [phone] | | | | | [address] | | | | | | [phone] | | | +--------+ + + + [...]
--- OUTSIDE RECORDS SUMMARY | ~2019-08-24 | XMS | Encounter Summary ---
Demographics + + + | Address | [address] | | | [place] [address] | + + + | Home Phone [...] Author + + + | Author | [facility] | + + + | Organization | [facility] | + + + | Address [...] Team Providers + +------+ + | Care Healthcare Prof Name | Role | Phone | + +------+ + | Anny Ennis DO | PCP | Unavailable | + +------+ + Encounter Details +--------+------+ + + + | Date | Type | Department | Care Team | Description | +--------+------+ + + + | 03/13/ | Lab | Laboratory at [facility] | | Cirrhosis (HCC) | | 2009 | | [address] | | | | | | [place], [place] | | | | | | [address] | | | | | | [phone] | | | +--------+------+ + + + [...] [facility] | REGIONAL | | [place] [address] | LABORATORY | | [place] [address] | | + + + + + + + + | Performing | Address | City/State/Zipcode | Phone Number | | Organization | | | | + + + + + | [facility] | [address] | [place] [address] | | | LABORATORY | | | [...] | LABORATORY | | | | at [facility], | | | | | | [place], [place]. | | | | + + + + + + + + | Specimen | + + | Blood - Blood | + + + + + | Narrative | Performed At | + + + | [facility] | [facility] | | [place] [address] | REGIONAL | | [place] [address] | LABORATORY | + + + + + + + + | Performing | Address | City/State/Zipcode | Phone Number | | Organization | | | | + + + + + | [facility] | [address] | [place] [address] | | | LABORATORY | | | [...] | | | | | validated by [facility]. | | | | | | Test performed by: | | | | | | [facility] | | | | | | Services [address] | | | | | | [place] | | | | | | [address] | | | | + + + + + + + + | Specimen | + + | Urine - Urine | + + + + + + + | Performing | Address | City/State/Zipcode | Phone Number | | Organization | | | | + + + + + | [facility] | [address] | [place], [place] | | | UNIV PTH - MANUAL | | [address] | | + + + + + [...] At | + + + | [facility] | [facility] | | [place] [address] | REGIONAL | | [place] [address] | LABORATORY | + + + + + + + + | Performing | Address | City/State/Zipcode | Phone Number | | Organization | | | | + + + + + | [facility] | [address] | [place] [address] | | | LABORATORY | | | [...] At | + + + | [facility] ([facility]) [facility] | [place] | | [place] [address] [place] [facility] | [facility] | | [place] [address] | LABORATORY | + + + + + + + + | Performing | Address | City/State/Zipcode | Phone Number | | Organization | | | | + + + + + | [facility] | [address] | [place] [address] | | | LABORATORY | | | [...] At | + + + | [facility] | [place] | | [place] [address] | REGIONAL | | [place] [address] | LABORATORY | + + + + + + + + | Performing | Address | City/State/Zipcode | Phone Number | | Organization | | | | + + + + + | [facility] | [address] | [place] [address] | | | LABORATORY | | | [...] by | | | | | | [facility], | | | | | | | | | | | | [address] | | | | | | [place] [address] | | | | | | [phone] | | | | | | | | | | | | [email or web address], | | | | | | [employer] [...] [facility] | [address] | [place], [place] | | | UNIV PTH - INTFC | | [address] | | + + + + + [...] | + + + | [facility] ([facility]) [facility] | [place] | | [place] [address] | DEPARTMENT | | [place] [address] | PATHOLOGY | + + + + + + + + | Performing | Address | City/State/Zipcode | Phone Number | | Organization | | | | + + + + + | [facility] DEPARTMENT OF | [address] | [place] [address] | | | PATHOLOGY | [address] [...] | + + + + + | [facility] DEPARTMENT OF | [address] | [place] [address] | | | PATHOLOGY | [address] | | | + + + + + INR (03/13/2010 9:50 AM PDT) + + + + + + | Component | Value | Ref Range | Performed | Pathologist | | | | | At | Signature | + + + + + + | INR | 1.19Comment: | 0.90 - 1.20 INR | [facility] | | | | INR Therapeutic [...] | + + + + + | [facility] | [address] | [place] [address] | | | PATHOLOGY | [address] [...] | | | DEPARTMENT | | | [facility] | | | OF | | | [...] | + + + + + | [facility] | [address] | [place] [address] | | | PATHOLOGY | [address] | | | + + + + + documented in this encounter Visit Diagnoses + + | Diagnosis | + + | 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
--- OUTSIDE RECORDS SUMMARY | ~2019-08-24 | XMS | Encounter Summary ---
Demographics + + + | Address | [address] | | | [place] [address] | + + + | Home Phone | | + + + | Preferred Language | Unknown | + + + | Marital Status | | + + + | Mandaen Affiliation | Unknown | + + + | Race | Unknown | + + + | Ethnic Group | Unknown | + + + Author + + + | Author | [facility] | | | and [place] | + + + | Organization | [facility] | | | [...] Providers + +------+ + | Care Director Broadcast Name | Role | Phone | + +------+ + PCP | Unavailable | + +------+ + Encounter Details +--------+ + + + + | Date | Type | Department | Care Team | Description | +--------+ + + + + | 05/24/ | Hospital | [facility] | Conversion | Pain | | 2015 | Encounter | CONVERSION [address] | Transaction, | | | | | [address] | Provider Unknown | | | | | [place], [place] | [phone] | | | | | [address] | | | | | | [phone] | | | +--------+ + + + [...]
--- OUTSIDE RECORDS SUMMARY | ~2019-08-24 | XMS | Encounter Summary ---
Demographics + + + | Address | [address] | | | [place] [address] | + + + | Home Phone | | + + + | Preferred Language | Unknown | + + + | Marital Status | | + + + | Yarsanism Affiliation [...] Team Providers + +------+ + | Care Esol Instructor Name | Role | Phone | [...] | | | | | | (HCC) Other | | | | | | [...] | +--------+ + + + + | 06/19/ | Anesthesia | [facility] | Tony Molina MD | | | 2019 | Event | [facility] | [address] | | | | | OP [address] | [place] [address] | | | | | [place] | [phone] | | | | | [address] | | | | | | [phone] | Ha Herrmann, | | | | | | STRUCTURAL LAYOUT WORKER [address] | | | | | | [place] [address] | | | | | | [phone] | | | | | | | | +--------+ + + + + Anesthesia Record + + + + + | Procedure Name | Responsible | Anesthesia Start | Anesthesia Stop Time | | | Anesthesiologist | Time | | + + + + + | ORIF ULNA FRACTURE | Tony Molina MD | 06/19/19 0902 | 06/19/19 1035 | | (Right Arm Lower) | | | | + + + + + +----+---+ + + | Da | T | Event | Comment | | te | i | | | | | m | | | | | e | | | +----+---+ + + | 09 | 0 | An Checkout | Pre-use anesthesia machine/equipment checkout. | | /3 | 6 | | | | 0/ | 5 | | | | 20 | 7 | | | | 19 | | | | +----+---+ + + | | 0 | An Start | Reassessment prior to anesthesia induction/procedure. | | | 9 | | | | | 0 | | | | | 2 | | | +----+---+ + + | | 0 | Preoxygenat | | | | 9 | ed | | | | 0 | | | | | 8 | | | +----+---+ + + | | 0 | Antibiotic | Vanco finished | | | 9 | Given | | | | 0 | | | | | 8 | | | +----+---+ + + | | 0 | An | | | | 9 | Induction | | | | 1 | | | | | 1 | | | +----+---+ + + | | 0 | An | | | | 9 | Intubation | | | | 1 | | | | | 3 | | | +----+---+ + + | | 0 | First | | | | 9 | Inc/Proc St | | | | 3 | | | | | 5 | | | +----+---+ + + | | 0 | Pre-Procedu | | | | 9 | ral Timeout | | | | 3 | Completed | | | | 7 | | | +----+---+ + + | | 0 | Varnell | | | | 9 | 43-degrees | | | | 3 | | | | | 8 | | | +----+---+ + + | | 0 | AN No | TOF 4/4 with sustained tetanus. | | | 9 | Residual | | | | 5 | NMB | | | | 7 | | | +----+---+ + + | | 0 | Breathing | | | | 9 | Spontaneous | | | | 5 | ly | | | | 7 | | | +----+---+ + + | | 1 | Varnell off | | | | 0 | | | | | 1 | | | | | 8 | | | +----+---+ + + | | 1 | Oropharynx | | | | 0 | Suctioned | | | | 2 | | | | | 0 | | | +----+---+ + + | | 1 | Extubated | | | | 0 | Awake | | | | 2 | | | | | 2 | | | +----+---+ + + | | 1 | An Stop | Patient handed off to recovery nurse. | | | 3 | | | | | 5 | | | +----+---+ + + +------+ | Meds | +------+ + + + | Name | Total | + + + | midazolam | 2 mg | + + + | fentaNYL | 200 mcg | + + + | lidocaine 2% | 100 mg | + + + | propofol | 200 mg | + + + | phenylephrine | 500 mcg | + + + | phenylephrine | 3,240 mcg | + + + | rocuronium | 5 mg | + + + | succinylcholine | 100 mg | + + + | balanced electrolytes in water | 1,000 mL | | (PLASMALYTE-148/NORMOSOL-R) | | | infusion | | + + + + + | Name | + + | N2O Flow Rate (L/Min) | + + | O2 Flow Rate (L/Min) | + + | Insp O2 | + + | Exp N2O | + + | Exp SEV | + + | Air Flow Rate (L/Min) | + + + + | No blood administrations on file. | + + +--------+ + + + | Type | Details | Placement | Removal | +--------+ + + + | Periph | 06/19/19; 929 (created via | 06/19/19929 by | | | eral | procedure documentation); Left; | Ha Herrmann CRNA | | | IV | Distal; Wrist; 18 gauge | | | +--------+ + + + | Wound | 06/19/19; 1026; Incision; Right; | 06/19/19 1026 by | | | | arm | Liana Hopson RN | | +--------+ + + + | Periph | 06/18/19; 0634; Left; | 06/18/19 0634 by | 06/22/19 1003 by | | eral | Antecubital; pressure injectable; | Negrita Verma RN | Nyaana Adamson, | | IV | 20 gauge; other (see comments); | | Tablet Machine Operator | | | lost patency; 06/22/19; 1003 | | | +--------+ + + + | Brace/ | 06/18/19; 1929; cervical collar; | 06/18/191929 by | 06/22/19 1052 by | | Orthot | neck; 06/22/19; 1052 | Brijesh White, | Michelle Warner RN | | ic/Ort | | RN | | | [place] | | | | +--------+ + + + | Airway | Placement Date: 06/19/19; | 06/19/19912 by | 06/19/19 1022 by | | | Placement Time: 912 (created via | Ha Herrmann CRNA | Ha Herrmann CRNA | | | procedure documentation); Mask | | | | | Ventilation: N/A; Airway Grade: | | | | | 1; Successful Technique: video | | | | | scope; Laryngoscope Blade Size: | | | | | 3; Attempts: 1; Airway Type: | | | | | endotracheal; Size: 8; Airway | | | | | Tube Secured At: 24; Trauma: | | | | | none; Other Equipment: stylette; | | | | | Placement Check: exhaled CO2 | | | | | detection device, video | | | | | laryngoscope, bilateral chest | | | | | rise, breath sounds equal | | | | | bilaterally; Removal Date: | | | | | 06/19/19; Removal Time: 1022 | | | +--------+ + + + documented in this encounter Social History + +-------+ +--------+------+ | Tobacco [...] | + +--------+ + + + | ANE PERIPHERAL IV | Routin | 06/19/2019 | | Results for this | | LINE NOTE | e | 9:49 AM | | procedure are in the | | | | PDT | | results section. | + +--------+ + + + | ANE AIRWAY NOTE | Routin | 06/19/2019 | | Results for this | | | e | 9:48 AM | | procedure are in the | | | | PDT | | results section. | + +--------+ + + + documented in this encounter Results PIV (06/19/2019 9:49 AM PDT) + + + | Narrative | Performed At | + + + | Ha Herrmann CRNA 06/19/2019 9:49 | | | Intravenous Line Placement 06/19/2019 9:30 Indication: routine | | | Preparation: alcohol patient was: under GA Side: left Orientation: | | | distal Vein location: wrist Size: 18 g Localization technique: | | | landmark Securement: transparent dressing Placed by: Ha | | | Anna Herrmann CRNA Please see intraoperative grid for | | | any additional medication documentation. | | + + + + + | Procedure Note | + + | Ha Herrmann CRNA - 06/19/2019 9:49 AM PDT | | Intravenous Line Placement | | | | 06/19/2019 9:30 | | Indication: routine | | Preparation: alcohol | | patient was: under GA | | Side: left | | Orientation: distal | | Vein location: wrist | | Size: 18 g | | Localization technique: landmark | | Securement: transparent dressing | | Placed by: Ha Herrmann CRNA | | | | | | Please see intraoperative grid for any additional medication documentation. | + + Airway (06/19/2019 9:48 AM PDT) + + + | Narrative | Performed At | + + + | Ha Herrmann CRNA 06/19/2019 9:49 Anesthesia | | | Airway Placement 06/19/2019 9:13 Preprocedure check: patient | | | identified, oxygen, airway assessed, suction, airway equipment | | | checked and patient reassessment prior to induction Rapid Sequence | | | Induction: yes Mask ventilation: N/A Successful technique: | | | videoscope Laryngoscope blade size: 3 Airway grade: 1 (Full view | | | of glottis) Other equipment: stylette Attempts: 1 Airway type: | | | endotracheal Size: 8 Cuffed: cuffed Route, reference point: | | | teeth/lips Tube depth: 24 cm Tube secured with: adhesive tape | | | Trauma: none Tube placement verification: bilateral chest rise, equal | | | bilateral breath sounds, carbon dioxide detection and video | | | laryngoscope Performing provider: Ha Herrmann CRNA | | | Please see intraoperative grid for any additional medication | | | documentation. | | + + + + + | Procedure Note | + + | Ha Herrmann CRNA - 06/19/2019 9:48 AM PDT Anesthesia Airway Placement06/19/2019 | | 9:13Preprocedure check: patient identified, oxygen, airway assessed, suction, airway | | equipment checked and patient reassessment prior to inductionRapid Sequence Induction: | | yesMask ventilation: N/ASuccessful technique: videoscopeLaryngoscope blade size: 3 | | Airway grade: 1 (Full view of glottis)Other equipment: styletteAttempts: 1Airway type: | | endotrachealSize: 8Cuffed: cuffedRoute, reference point: teeth/lipsTube depth: 24 cmTube | | secured with: adhesive tapeTrauma: noneTube placement verification: bilateral chest | | rise, equal bilateral breath sounds, carbon dioxide detection and video | | laryngoscopePerforming provider: Ha Herrmann CRNAPlease see | | intraoperative grid for any additional medication documentation. | |Attempts: 1 | |Airway type: endotracheal | |Size: 8 | |Cuffed: cuffed | |Route, reference point: teeth/lips | |Tube depth: 24 cm | |Tube secured with: adhesive tape | |Trauma: none | |Tube placement verification: bilateral chest rise, equal bilateral breath sounds, carbon di oxide detection and video laryngoscope | |Performing provider: Ha Herrmann CRNA | | | | | | | |Please see intraoperative grid for any additional medication documentation. | + + documented in this encounter Visit Diagnoses Not on filedocumented in this encounter Administered Medications + +---------+ +------+------+------+ | Medication Order | MAR | Action | Dose | Rate | Site | | | Action | Date | | | | + +---------+ +------+------+------+ | balanced electrolytes in water | New [...] | | | | | + +---------+ +------+------+------+ + + +---+ +---+ | Continued by [...] +---+ +---+ +---+---+ | | | +---+---+ + +-------+ +--------+---+---+ | fentaNYL (PF) injection | Given | 06/19/20 | 50 mcg | | | | Intravenous, PRN, Starting Mon | | 19 10:33 | | | | | 06/19/19 at 0908, Anesthesia | | AM PDT | | | | | Intra-op | | | | | | + +-------+ +--------+---+---+ +-------+ +---------+---+---+ | Given | 06/19/20 | 50 mcg | | | | | 19 9:57 | | | | | | AM PDT | | | | +-------+ +---------+---+---+ | Given | 06/19/20 | 100 mcg | | | | | 19 9:08 | | | | | | AM PDT | | | | +-------+ +---------+---+---+ +---+---+ | | | +---+---+ + +-------+ +--------+---+---+ | lidocaine (PF) 2% injection | Given | 06/19/20 | 100 mg | | | | Intravenous, PRN, Starting Mon | | 19 9:11 | | | | | 06/19/19 at 0911, Anesthesia | | AM PDT | | | | | Intra-op | | | | | | + +-------+ +--------+---+---+ +---+---+ | | | +---+---+ + +-------+ +------+---+---+ | midazolam (VERSED) 1 mg/mL | Given | 06/19/20 | 2 mg | | | | injection Intravenous, PRN, | | 19 9:02 | | | | | Starting 06/19/19 at 0902, | | AM PDT | | | | | Anesthesia Intra-op | | | | | | + +-------+ +------+---+---+ +---+---+ | | | +---+---+ + + + +---------+-------+---+ | phenylephrine (VALDEZ-SYNEPHRINE, | Rate/Dos | 06/19/20 | 15 | 0.1 | | | VAZCULEP) 10 mg/mL injection | e Change | 19 10:14 | mcg/min | mL/hr | | | Intravenous, CONTINUOUS PRN, | | AM PDT | | | | | Starting 06/19/19 at 0923, | | | | | | | Anesthesia Intra-op | | | | | | + + + +---------+-------+---+ + + +---------+-------+---+ | Rate/Dose Change | 06/19/20 | 30 | 0.2 | | | | 19 10:10 | mcg/min | mL/hr | | | | AM PDT | | | | + + +---------+-------+---+ | Rate/Dose Change | 06/19/20 | 40 | 0.2 | | | | 19 9:59 | mcg/min | mL/hr | | | | AM PDT | | | | + + +---------+-------+---+ +---+---+ | | | +---+---+ + +-------+ +---------+---+---+ | phenylephrine (VALDEZ-SYNEPHRINE, | Given | 06/19/20 | 100 mcg | | | | VAZCULEP) 10 mg/mL injection | | 19 9:27 | | | | | Intravenous, PRN, Starting Mon | | AM PDT | | | | | 06/19/19 at 0916, Anesthesia | | | | | | | Intra-op | | | | | | + +-------+ +---------+---+---+ +-------+ +---------+---+---+ | Given | 06/19/20 | 100 mcg | | | | | 19 9:24 | | | | | | AM PDT | | | | +-------+ +---------+---+---+ | Given | 06/19/20 | 100 mcg | | | | | 19 9:22 | | | | | | AM PDT | | | | +-------+ +---------+---+---+ +---+---+ | | | +---+---+ + +-------+ +--------+---+---+ | propofol (DIPRIVAN) injection | Given | 06/19/20 | 200 mg | | | | Intravenous, PRN, Starting Mon | | 19 9:11 | | | | | 06/19/19 at 0911, Anesthesia | | AM PDT | | | | | Intra-op | | | | | | + +-------+ +--------+---+---+ +---+---+ | | | +---+---+ + +-------+ +------+---+---+ | rocuronium (ZEMURON) injection | Given | 06/19/20 | 5 mg | | | | Intravenous, PRN, Starting Mon | | 19 9:11 | | | | | 06/19/19 at 0911, Anesthesia | | AM PDT | | | | | Intra-op | | | | | | + +-------+ +------+---+---+ +---+---+ | | | +---+---+ + +-------+ +--------+---+---+ | succinylcholine (ANECTINE) | Given | 06/19/20 | 100 mg | | | | injection Intravenous, PRN, | | 19 9:11 | | | | | Starting 06/19/19 at 0911, | | AM PDT | | | | | Anesthesia Intra-op | | | | | | + +-------+ +--------+---+---+ +---+---+ | | | +---+---+ documented in this encounter"
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
--- OUTSIDE RECORDS SUMMARY | ~2019-08-24 | XMS | Encounter Summary ---
Demographics + + + | Address | [address] | | | [place] [address] | + + + | Home Phone [...] + + + | Author | [facility] | + + + | Organization | [facility] | + + + | Address [...] Team Providers + +------+ + | Care Mission Analyst Name | Role | Phone | + +------+ + PCP | Unavailable | + +------+ + Encounter Details +--------+ + + + + | Date | Type | Department | Care Team | Description | +--------+ + + + + | 03/25/ | Abstract | [facility] | Azeem Dietrich | | | [address] | | [place] [address] [address] | | | | [address] | [place], [place] | | | | | Mailcode: [id number] | [address] | | | | | [facility] | [phone] | | | | | and [address], | | | | | | [address] | | | | | | [place], [place] | | | | | | [address] | | | | | | [phone] | | | +--------+ + + + [...]
--- OUTSIDE RECORDS SUMMARY | ~2019-08-24 | XMS | Encounter Summary ---
Demographics + + + | Address | [address] | | | [place] [address] | + + + | Home Phone | | + + + | Preferred Language | Unknown | + + + | Marital Status | | + + + | Yazidi Affiliation | Unknown | + + + | Race | Unknown | + + + | Ethnic Group | Unknown | + + + Author + + + | Author | [facility] | | | and [place] | + + + | Organization | [facility] | | | [...] Team Providers + +------+ + | Care Spool Maker Name | Role | Phone | + +------+ + PCP | Unavailable | + +------+ + Encounter Details +--------+ + + + + | Date | Type | Department | Care Team | Description | +--------+ + + + + | 11/12/ | Hospital | [facility] | Rodo Draper, | | | 2008 - | Encounter | [facility] ICU [address] | [address] [facility] | | | | | [place], | [place], [place] | | | 11/17/ | | [place] [address] | [address] | | | 2008 | | [phone] | [phone] | | | | | | | [...]
--- OUTSIDE RECORDS SUMMARY | ~2019-08-24 | XMS | Clinical Summary ---
Demographics + + + | Address | [address] | | | [place] [address] | + + + | Home Phone | | + + + | Preferred Language | Unknown | + + + | Marital Status | | + + + | Jainism Affiliation | Unknown | + + + | Race | Unknown | + + + | Ethnic Group | Unknown | + + + Author + + + | Author | [facility] [employer] (Historical as of | | | 05-06-19) | + + + | Organization | [facility] [employer] (Historical as of | | | 05-06-19) | + + + | Address | Unknown | + + + | Phone | Unavailable | + + + Support + + + + + | Name | Relationship | Address | Phone | + + + + + | Jay Jay Fortune | ECON | [address] | | | | | [place] | | | | | [address] | | + + + + + | Teressa Fortune | ECON | [place] | | | | | [address] | | + + + + + Care Team Providers + +------+ + | Care Cue Selector Name | Role | Phone | + +------+ + | Chico Richey | PP | | + +------+ + Allergies + + + + + + | Active Allergy | Reactions | Severity | Noted | Comments | | | | | Date | | + + + + + + | Penicillins | Other (See Comments) | Medium | 10/11/19 | Unknown | | | | | 15 | | + + + + + + Current Medications + + +--------+---------+------+------+-------+ | Prescription | Sig. | Disp. | Refills | Star | End | Statu | | | | | | t | Date | s | | | | | | Date | | | + + +--------+---------+------+------+-------+ | Multiple Vitamin | Take 1 tablet by | | | | | Activ | | (MULTIVITAMIN) | mouth daily. | | | | | e | | tablet | | | | | | | + + +--------+---------+------+------+-------+ | acetaminophen | Take 650 mg by mouth | | | | | Activ | | (TYLENOL) 650 MG CR | every 8 (eight) | | | | | e | | tablet | hours as needed for | | | | | | | | Pain. | | | | | | + + +--------+---------+------+------+-------+ | docusate sodium | Take 100 mg by mouth | | | | | Activ | | (COLACE) 100 MG | daily. Indications: | | | | | e | | capsuleIndications: | Constipation | | | | | | | Constipation | | | | | | | + + +--------+---------+------+------+-------+ | PARoxetine (PAXIL) | Take 10 mg by mouth | | | | | Activ | | 10 MG | every morning. | | | | | e | | tabletIndications: | Indications: Major | | | | | | | Major Depressive | Depressive Disorder | | | | | | | Disorder | | | | | | | + + +--------+---------+------+------+-------+ | thiamine (VITAMIN | Take 100 mg by mouth | | | | | Activ | | B-1) 100 MG tablet | daily. | | | | | e | + + +--------+---------+------+------+-------+ | senna (SENOKOT) | Take 1 tablet by | | | | | Activ | | 8.6 MG | mouth 2 (two) times | | | | | e | | tabletIndications: | daily. Indications: | | | | | | | Constipation | Constipation | | | | | | + + +--------+---------+------+------+-------+ | ondansetron | Take 4 mg by mouth | | | | | Activ | | (ZOFRAN) 4 MG tablet | every 6 (six) hours | | | | | e | | | as needed for | | | | | | | | Nausea. | | | | | | + + +--------+---------+------+------+-------+ | bisacodyl | Place 10 mg rectally | | | | | Activ | | (DULCOLAX) 10 MG | as needed. | | | | | e | | suppositoryIndicatio | Indications: | | | | | | | ns: Constipation | Constipation | | | | | | + + +--------+---------+------+------+-------+ | mineral oil enema | Place 1 enema | | | | | Activ | | | rectally as needed | | | | | e | | | for Constipation. | | | | | | + + +--------+---------+------+------+-------+ | magnesium | Take 30 mLs by mouth | | | | | Activ | | hydroxide (MILK OF | as needed for | | | | | e | | MAGNESIA) 400 MG/5ML | Constipation. | | | | | | | suspension | | | | | | | + + +--------+---------+------+------+-------+ | polyethylene | Take 17 g by mouth | | | | | Activ | | glycol (GLYCOLAX) | as needed. | | | | | e | | packetIndications: | Indications: | | | | | | | Constipation | Constipation | | | | | | + + +--------+---------+------+------+-------+ | | Take 1 tablet by | 60 | 0 | 05/21 | | Activ | | HYDROcodone-acetamin | mouth every 6 (six) | tablet | | / | | e | | ophen (NORCO) 5-325 | hours as needed for | | | 15 | | | | MG per tablet | Pain. | | | | | | + + +--------+---------+------+------+-------+ Active Problems + + + | Problem | Noted Date | + + + | Acute respiratory failure (HCC) | 05/29/2015 | + + + | Anemia | 05/29/2015 | + + + | Thrombocytopenia (HCC) | 05/29/2015 | + + + | Headache(784.0) | 11/23/2014 | + + + | S/P craniotomy | 11/23/2014 | + + + | Seizures | 11/23/2014 | + + + | Hyposmolality and/or hyponatremia | 10/20/2014 | + + + | Debility, unspecified | 10/18/2014 | + + + | Difficulty in walking(719.7) | 10/18/2014 | + + + | Alcohol withdrawal | 10/14/2014 | + + + | Traumatic brain injury, closed | 10/11/2014 | + + + | Alcohol abuse | | + + + | Frequent falls | | + + + Resolved Problems + + + + | Problem | Noted | Resolved | | | Date | Date | + + + + | Subdural fluid collection | 05/29/20 | | | | 15 | 5 | + + + + | Pneumocephalus | 05/29/20 | | | | 15 | 5 | + + + + | Midline shift of brain | 05/29/20 | | | | 15 | 5 | + + + + | Epidural hemorrhage (HCC) | 05/29/20 | | | | 15 | 5 | + + + + | Cerebral edema (HCC) | 10/16/19 | | | | 15 | 5 | + + + + | Subdural hematoma, post-traumatic | 10/14/19 | | | | 15 | 5 | + + + + | Comatose | 10/11/19 | | | | 15 | 5 | + + + + | Seizure (HCC) | 10/11/19 | | | | 15 | 5 | + + + + Immunizations + + + + | Name | Dates Previously Given | Next Due | + + + + | INFLUENZA | 10/12/2014 | | | QUADRIVALENT 36+ MO | | | | PRESERV FREE | | | + + + + | Pneumococcal | 10/12/2014 | | | Polysaccharide | | | | 23-valent | | | + + + + Social History + + + +--------+------+ | Tobacco Use | Types | Packs/Day | Years | Date | | | | | Used | | + + + +--------+------+ | Former Smoker | Cigarettes | | | | + + + +--------+------+ + +---+---+---+ | Smokeless Tobacco: | | | | | Never Used | | | | + +---+---+---+ + + | Comments: Quit 03/2015 | + + + + +---------+ + | Alcohol Use | Drinks/We | oz/Week | Comments | | | ek | | | + + +---------+ + | Yes | | | several large malt beers daily when he | | | | | binge drinks but has periods of not | | | | [...] + + + | Blood Pressure | 100/73 | 06/03/2015 11:30 AM PDT | + + + + | Pulse | 89 | 06/03/2015 11:30 AM PDT | + + + + | Temperature | 36.7 C (98.1 F) | 06/03/2015 11:30 AM PDT | + + + + | Respiratory Rate | 16 | 06/03/2015 11:30 AM PDT | + + + + | Oxygen Saturation | 100% | 06/03/2015 11:30 AM PDT | + + + + | Inhaled Oxygen | - | - | | Concentration | | | + + + + | Weight | 89.4 kg (197 lb) | 07/23/2015 11:01 AM PST | + + + + | Height | 177.8 cm (5' 10") | 07/23/2015 11:01 AM PST | + + + + | Body Mass Index | 28.27 | 07/23/2015 11:01 AM PST | + + + + Plan of Treatment + + + + + | Health Maintenance | Due Date | Last Done | Comments | + + + + + | Vaccine: | | | | | Dtap/Tdap/Td (1 - | 9 | | | | Tdap) | | | | + + + + + | Vaccine: Zoster (1 | | | | | of 2) | 0 | | | + + + + + | Vaccine: Influenza | | 10/12/2014 | | | (#1) | 9 | | | + + + + + Implants + +------+--------+ +--------+--------+--------+ | Implanted | Type | Area | Manufacture | Device | Expira | Model | | | | | r | | tion | / | | | | | | Identi | Date | Serial | | | | | | fier | | / Lot | + +------+--------+ +--------+--------+--------+ | Duragen 5"X7" - | | | [employer] | | 01/18/ | [id number] | | [id number]: Qty: 1 on | | | | | 2016 | / | | 10/11/2014 by Arlette, | | | | | | /[id number] | | Anthony HENRIQUEZ MD | | | | | | 21 | + +------+--------+ +--------+--------+--------+ | Algrft Dura Durgn Mtrx 3x3 | | Right: | [employer] | | 08/27/ | ID-330 | | Bx5 - [id number]: Qty: | | Brain | NEUROSCIENC | | 2016 | 5 / | | 1 on 05/28/2015 by Earl, | | | FRANCK - INNE | | | /[id number] | | Gloria Baumann MD | | | | | | 51 | + +------+--------+ +--------+--------+--------+ | Mesh Grid Hcd 11x7.5 | | Right: | [employer] - | | | 015-20 | | - - | | Brain | MEDT | | | - / | | [id number]: Qty: 1 on | | | | | | / | | 05/28/2015 by Gloria Elliott | | | | | | | | L, MD | | | | | | | + +------+--------+ +--------+--------+--------+ | Plate Dbl Y 3h 5mm - | | Right: | [employer] - | | | 015-23 | | [id number]: Qty: 2 on | | Brain | MEDT | | | 7 / | | 05/28/2015 by Gloria Elliott | | | | | | /[id number] | | L, MD | | | | | | 98 | + +------+--------+ +--------+--------+--------+ | Screw S/Tap 1.6x4.0 - | | Right: | [employer] - | | | [id number] | | [id number]: Qty: 14 on | | Brain | MEDT | | | 0 / / | | 05/28/2015 by Gloria Elliott | | | | | | | | L, MD | | | | | | | + +------+--------+ +--------+--------+--------+ | Plate Dogbone 8mm - | | Right: | [employer] - | | | 015-04 | | [id number]: Qty: 1 on | | Brain | MEDT | | | 2 / | | 05/28/2015 by Gloria Elliott | | | | | | /[id number] | | MD Ibis | | | | | | 58 | + +------+--------+ +--------+--------+--------+ | Screw S/Tap 1.6x4.0 - | | | [employer] - | | | [id number] | | [id number]: Qty: 8 on | | | MEDT | | | 0 | | 05/29/2015 by Gloria Elliott | | | | | | /[id number] | | MD Ibis | | | | | | 40 / | + +------+--------+ +--------+--------+--------+ | Algrft Dura Durgn Mtrx 3x3 | | | [employer] | | 08/20/ | ID-330 | | Bx5 - [id number]: Qty: | | | NEUROSCIENC | | 2016 | 5 | | 1 on 05/29/2015 by Earl, | | | FRANCK - MALIKA | | | /[id number] | | Gloria Baumann MD | | | | | | 5 | | | | | | | | /[id number] | | | | | | | | 52 | + +------+--------+ +--------+--------+--------+ Results Not on filefrom Last 3 Months Insurance + +--------+ +------+-------+ + | Payer | Benefi | Subscriber | Type | Phone | Address | | | t Plan | ID | | | | | | / | | | | | | | Group | | | | | + +--------+ +------+-------+ + | MEDICAID | MEDICA | [id number] | | | [address] | | | ID | | | | [place], [place] | | | [place] | | | | [phone] | + +--------+ +------+-------+ + | [employer] | YELLOW | [id number] | | | | | PLANS | [place] | | | | | + +--------+ +------+-------+ + + +--------+ +--------+ + + | Guarantor Name | Accoun | Relation to | Date | Phone | Billing Address | | | t Type | Patient | of | | | | | | | | | | + +--------+ +--------+ + + | EVANS FORTUNE | Person | Self [birth year] Home: | [address] | | | al/Fam | | 1961 | [phone] [place], | | | [address] | | | [address] | [place] [address] | + +--------+ +--------+ + +
--- OUTSIDE RECORDS SUMMARY | ~2019-08-24 | XMS | Encounter Summary ---
Demographics + + + | Address | [address] | | | [place] [address] | + + + | Home Phone | | + + + | Preferred Language | Unknown | + + + | Marital Status | | + + + | Adventism Affiliation | Unknown | + + + | Race | Unknown | + + + | Ethnic Group | Unknown | + + + Author + + + | Author | [facility] | | | and Olegarioana | + + + | Organization | [facility] | [...] Team Providers + +------+ + | Care Heel Wheeler Name | Role | Phone | + +------+ + PCP | Unavailable | + +------+ + Encounter Details +--------+ + + + + | Date | Type | Department | Care Team | Description | +--------+ + + + + | 10/11/ | Hospital | [facility] | Chong, | Alcohol abuse; | | 2015 - | Encounter | [facility] [address] | Anthony HENRIQUEZ MD | Comatose ([facility]); | | | | [address] | [phone] | Frequent falls; | | 10/29/ | | [place], [place] | [place] [address] | Seizure ([facility]); | | 2014 | | [id number] | [phone] | Alcohol withdrawal | | | | [phone] | | (HCC); Cerebral | | | | | | edema ([facility]); | | | | | | Subdural hematoma, | | | | | | post-traumatic, | | | | | | sequela ([facility]); | | | | | | Traumatic brain | | | | | | injury, closed, | | | | | | sequela ([facility]) | +--------+ + + + + Social [...] Summaries by Cecilio Bravo MD at 11/12/14 112 Author: Cecilio Bravo MD Service: Hospitalist Author Type: Physician Filed: 11/12/14 1127 Date of Service: 11/12/141123 Status: Signed Vacuum Forming Machine Operator: Cecilio Bravo MD (Physician) [facility] Service: Hospitalist Discharge Summary Date of Admission: 10/11/2014 Date of Discharge: 10/29/2014 Discharge Provider: Cecilio Bravo MD Treatment Team: Consulting Physician: Wing Lewis Argueta MD Admitting Provider: Anthony Chong MD Discharge Diagnoses: Principal Problem: Traumatic brain [...] and multiple falls. Per ED report from [facility]: he was drinking earlier today at home and fell twice. He went to bed and then he was noted to be having what they thought was seizure activity and th ey could not wake him and called EMS. He was taken to the ED at [facility] in [place] a mo then transferred to the ED here for emergent neurosurgical evaluation for large acute rig ht SDH with 2 cm midline shift. He was admitted to the ICU post-op craniectomy and yosef drains x2. by Dr. Chong still intu bated and comatose off sedation [...] and multiple falls who was transferred from [facility] due to a fall, seizures . CT scan of the head there showed a large acute right SDH with 2 cm midline shift. Neurosur jarad services was involved and dr. Chong performed Craniectomy and post procedure he was [...] placement to improve s trength and mobility. internet marketing consultant are working on finding placement which may take few days, however if accepted then can be discharged for rehabilitation Events Overnight: 2/2 pt still somewhat confused, thought he was in [place]. He knew that he fell, but didn [...] s/p subdural craniotomy and evacuation by dr. Chong. 10/14 extubated. 10/15 craniotomy drains removed. 10/16; transferred out of ICU. 10/22 dr. argueta consulted but deemed not a inpt rehab candidate. Still waiting for placement. Cont with physical therapy. Per CM note today : CM attempted to meet pt for d/c planning. CM could not arouse pt for di scussion. CM routed updated medical notes to [facility] and [facility]. PT recommending SNF. Lewis Christy spoke w/ Tyler at [facility] and Mary Beth at [facility], efaxed updated medical information, bot h are looking into the pt's case. RN reports pt has not had sitter and no behavioral problem s. 10/23: Patient continues to do well. However [...] at this time; planned for placement in [place] once patient is off sitter for 48 hrs. Otherwise patient continues to interact appropriately at this time and no impulsiveness is shown. Patient is mostly in chair or in bed and sleeping. 10/27 pt is alert today, no complications. Continue with PT. Pt without sitter. Pending place ment still. 10/28 planning re-evaluation of patient's status for admission to [place]. Pt otherwise is not impulsive, mostly calm [...] FOR BLEED; Surgeon: Anthony Chong MD; Location: [facility] OR; Service: Neurosurgery; Laterality: Right; Craniectomy Right 10/11/2014 Procedure: CRANIECTOMY; Surgeon: Anthony Chong MD; Location: [facility] OR; Ser vice: Neurosurgery; Laterality: Right; Allergies [...] No discharge procedures on file. Follow up: Atnhony Chong MD [address] [place] [address] Call right away to schedule an appointment for the end of October. Dr. Chong will decid e at that visit about [...] are the prescriptions that you need to tack picker. You may get the following medications [...] Discharge Summaries by Cecilio Bravo MD at 10/29/14 112 Author: Cecilio Bravo MD Service: Hospitalist Author Type: Physician Filed: 10/29/141122 Date of Service: 10/29/141122 Status: Signed Vacuum Forming Machine Operator: Cecilio Bravo MD (Physician) [facility] Service: Hospitalist Progress Note Hospital Day: LOS: 18 days Post-Op Day: 11 Days Post-Op SUBJECTIVE Patient Summary: Per ICU note: The patient is a 53 y.o. male with significant past medical history of chronic alcohol abus e and multiple falls. Per ED report from [facility]: he was drinking earlier today at home and fell twice. He went to bed and then he was noted to be having what they thought was seizure activity and th ey could not wake him and called EMS. He was taken to the ED at [facility] in [place] a nd then transferred to the ED here for emergent neurosurgical evaluation for large acute rig ht SDH with 2 cm midline shift. He was admitted to the ICU post-op craniectomy and yosef drains x2. by Dr. Chong still intu bated and comatose off sedation [...] and multiple falls who was transferred from [facility] due to a fall, seizures . CT scan of the head there showed a large acute right SDH with 2 cm midline shift. Neurosur jarad services was involved and dr. Chong performed Craniectomy and post procedure he was [...] placement to improve s trength and mobility. internet marketing consultant are working on finding placement which may take few days, however if accepted then can be discharged for rehabilitation Events Overnight: 2/2 pt still somewhat confused, thought he was in [place]. He knew that he fell, but didn [...] since transfer from ICU. Pending bed placement. Dannytalia sweeney is considering pt at this time. [...] Oct 17 2014 7:38AM Referring Provider Line: [phone] ID: 004 Ct Head Without Contrast 10/16/2014 [...] Oct 16 2014 6:08AM Referring Provider Line: [phone] E ID: [id number] PROBLEM LIST ASSESSMENT & PLAN Principal Problem: Subdural hematoma, with 2cm midline shift;; post-traumatic; Traumatic brain injury, close d 10/11; s/p subdural craniotomy and evacuation by dr. Chong. 10/14 extubated. 10/15 craniotomy drains removed. 10/16; transferred out of ICU. 10/22 dr. argueta consulted but deemed not a inpt rehab candidate. Still waiting for placement. Cont with physical therapy. Per CM note today : CM attempted to meet pt for d/c planning. CM could not arouse pt for d iscussion. CM routed updated medical notes to [facility] and [facility]. PT recommending SNF. CM spoke w/ Tyler at [facility] and Mary Beth at [facility], efaxed updated medical information, grace th are [...] at this time; planned for placement in [place] once patient is off sitter for 48 hrs. Otherwise patient continues to interact appropriately at this time and no impulsiveness is shown. Patient is mostly in chair or in bed and sleeping. 10/27 pt is alert today, no complications. Continue with PT. Pt without sitter. Pending plac ement still. 10/28 planning re-evaluation of patient's status for admission to [place]. Pt otherwise is not impulsive, mostly calm [...] t frontal indentation. Active Problems: Alcohol abuse 10/22 no signs [...] this encounter Progress Notes Emilie Sutherland MS CCC-ARCHIVES SPECIALIST - 10/29/2014 3:00 PM PSTFormatting of this note might be diffe rent from the original. Therapy Progress Note by Emilie Sutherland MS CCC-ARCHIVES SPECIALIST at 10/29/14 1500 Author: Emilie Sutherland MS CCC-ARCHIVES SPECIALIST Service: (none) Author Type: Speech Therapist Filed: 10/29/14 1507 Date of Service: 10/29/14 1500 Status: Signed Vacuum Forming Machine Operator: Emilie Sutherland MS CCC-ARCHIVES SPECIALIST (Speech Therapist) 10/29/14 1500 ARCHIVES SPECIALIST Last Visit ARCHIVES SPECIALIST Received On 10/29/14 Requires ARCHIVES SPECIALIST Follow Up No pt is being discharged from the hospital shortly. onversion T ransaction, Provider Unknown - 10/29/2014 11:18 AM PSTFormatting of this note might be diffe rent from the original. Case Management by TABITHA Armstrong at 10/29/14 1118 Author: TABITHA Armstrong Service: (none) Author Type: Director Of Market Intelligence Filed: 10/29/14 1119 Date of Service: 10/29/14 1118 Status: Signed Vacuum Forming Machine Operator: TABITHA Armstrong (Director Of Market Intelligence) TELMA faxed MD's discharge orders to [facility] and arranged for a copy of pt's chart to be sent with pt. TELMA arranged for ambulance transport due to pt's confusion and risk of re-in jury of Subdural Hematoma/Craniotomy . CM notified pt & family of the discharge time. Pt had no other resource concerns. Discharge Plan: [facility] Jem NEILSW onver alem Transaction, Provider Unknown - 10/29/2014 10:35 AM PST Therapy Progress Note by ИВАН Elaine at 10/29/14 1035 Author: ИВАН Elaine Service: (none) Author Type: Massage Therapist Filed: 10/29/14 1035 Date of Service: 10/29/14 1035 Status: Signed Vacuum Forming Machine Operator: ИВАН Elaine (Massage Therapist) 10/29/14 1035 Massage Therapy Interventions Locations Back;Neck;Shoulder Massage Therapy Technique Effleurage;Petrissage;Gabonese massage Response to treatment Decreased muscle tension onver alem Transaction, Provider Unknown - 10/29/2014 10:05 AM PST Nurse Progress Note by Angelina Meade RN at 10/29/14 1005 Author: Angelina Meade RN Service: (none) Author Type: Registered Nurse Filed: 10/29/14 1044 Date of Service: 10/29/14 100 Status: Signed Vacuum Forming Machine Operator: Angelina Meade RN (Registered Nurse) Report given to MICHELL Corral at [facility] orcas Cintron, PT - 10/29/2014 9:20 AM PSTFormatting of this note might be different from t he original. Therapy Progress Note by Dorcas Holguin PT at 10/29/14919 Author: Dorcas Holguin PT Service: (none) Author Type: Physical Therapist Filed: 10/29/14 1112 Date of Service: 10/29/14919 Status: Signed Vacuum Forming Machine Operator: Dorcas Holguin PT (Physical Therapist) 10/29/14919 PT Last Visit PT Received On 10/29/14 Reason for Treatment Brain injury Requires PT Follow Up Yes Follow up PT Only? No Focus for Next Treatment Formal Balance Assessment PT Eval/Reassessment Date 10/29/14 Assistance Required 2 person Steel Checker Needed No Precautions Other Precautions helmet when [...] Barriers to Discharge Physical Deficits Impacting Functional [place];Self-care Deficit s Impacting Functional [place] Recommendation Comments Pt may be discharging to SNF today if ready. Cecilio Briones MD - 10/28/2014 3:03 PM PST . Progress Notes by Cecilio Bravo MD at 10/28/14 1504 Author: Cecilio Bravo MD Service: Hospitalist Author Type: Physician Filed: 10/28/14 1509 Date of Service: 10/28/14 150 Status: Signed Vacuum Forming Machine Operator: Cecilio Bravo MD (Physician) [facility] Service: Hospitalist Progress Note Hospital Day: LOS: 17 days Post-Op Day: 11 Days Post-Op SUBJECTIVE Patient Summary: Per ICU note: The patient is a 53 y.o. male with significant past medical history of chronic alcohol abus e and multiple falls. Per ED report from [facility]: he was drinking earlier today at home and fell twice. He went to bed and then he was noted to be having what they thought was seizure activity and th ey could not wake him and called EMS. He was taken to the ED at [facility] in [place] a mo then transferred to the ED here for emergent neurosurgical evaluation for large acute rig ht SDH with 2 cm midline shift. He was admitted to the ICU post-op craniectomy and yosef drains x2. by Dr. Chong still intu bated and comatose off sedation [...] and multiple falls who was transferred from [facility] due to a fall, seizures . CT scan of the head there showed a large acute right SDH with 2 cm midline shift. Neurosur jarad services was involved and dr. Chong performed Craniectomy and post procedure he was [...] placement to improve s trength and mobility. internet marketing consultant are working on finding placement which may take few days, however if accepted then can be discharged for rehabilitation Events Overnight: 2/ pt still somewhat confused, thought he was in [place]. He knew that he fell, but didn 't realize that he had hematoma and evacuation. 2; pt is doing well, but with some [...] lesions, or ulcers. DATA Recent Labs Lab 10/22/14323 WBC 7.9 RBC 3.62* HCT 36.2* MCV 99.9 MCH 33.2 MCHC 33.2 RDW 54.7* PLT 286 MPV 8.2 DIFFTYPE AUTOMATED Recent Labs Lab 10/25/1440510/24/14141110/22/14 0324 K 3.8 3.6 3.5 CL 101 [...] >60 >60 >60 BMP: Recent Labs Lab 10/25/1440510/24/14 14110/22/14 0324 NA 134* 134* 133* K 3.8 [...] Oct 17 2014 7:38AM Referring Provider Line: [phone] ID: 004 Ct Head Without Contrast 10/16/2014 [...] Oct 16 2014 6:08AM Referring Provider Line: [phone] E ID: [id number] PROBLEM LIST ASSESSMENT & PLAN Principal Problem: Subdural hematoma, with 2cm midline shift;; post-traumatic; Traumatic brain injury, close d 10/11; s/p subdural craniotomy and evacuation by dr. Chong. 10/14 extubated. 10/15 craniotomy drains removed. 10/16; transferred out of ICU. 10/22 dr. argueta consulted but deemed not a inpt rehab candidate. Still waiting for placement. Cont with physical therapy. Per CM note today : CM attempted to meet pt for d/c planning. CM could not arouse pt for d iscussion. CM routed updated medical notes to [facility] and [facility]. PT recommending SNF. CM spoke w/ Tyler at [facility] and Mary Beth at [facility], efaxed updated medical information, grace th are [...] appropriate. Short term memory is very poor. / cont to have sitter, pt hasn't shown any impulsiveness today. Memory cont to be poor. No appropriate interactions at this time. 10/26 there are no beds at this time; planned for placement in [place] once patient is off sitter for 48 hrs. Otherwise patient continues to interact appropriately at this time and no impulsiveness is shown. Patient is mostly in chair or in bed and sleeping. 10/27 pt is alert today, no complications. Continue with PT. Pt without sitter. Pending plac ement still. 10/28 planning re-evaluation of patient's status for admission to [place]. Pt otherwise is not impulsive, mostly calm and resting in chair or in bed. Pt is fall risk, but hasn't been trying to get out of bed. On his one. Active Problems: Alcohol abuse 10/22 no signs [...] Bravo MD 10/28/2014 Maria Teresa Dhillon MA, CCC-ARCHIVES SPECIALIST - 10/27/2014 4:14 PM PST Therapy Progress Note by MS KT Hayes-ARCHIVES SPECIALIST at 10/27/14 4254 Author: MS KT Hayes-ARCHIVES SPECIALIST Service: (none) Author Type: Speech Therapist Filed: 10/27/14 4129 Date of Service: 10/27/141613 Status: Signed Vacuum Forming Machine Operator: MS KT Hayes-ARCHIVES SPECIALIST (Speech and Language Pathologist) 10/27/14 1600 Swallowing Assessment Eval Swallowing Treatment Yes Consistencies Consistencies Assessed Yes Thin Presentation Cup;Self Fed Oral Phase Thin WFL Pharyngeal Phase Cough - immediate;Delayed swallow initiated;Decreased laryngeal elevation upon palpation Riner Presentation Self Fed;Cup Oral WFL Pharyngeal Phase No overt signs or symptoms of aspiration Dysphagia Mechanically Altered Presentation Spoon Oral Phase WFL Pharyngeal Phase No overt signs or symptoms of aspiration;Cough - Delayed (pt required cues to swallow - pt very agitated during trials) Recommendations Liquids Consistency Recommendations Riner thick Diet Consistency Recommendation Pureed Recommendations Dysphagia [...] Goals Pt will have safe/efficient oral intake Riner thick liquids;Puree diet;With feeding sherley t;Goal progressing Pt will tolerate diet upgrade trials With 1:1 supervision;Goal progressing onver alem Transaction, Provider Unknown - 10/27/2014 2:10 PM PST Therapy Progress Note by Katherin Garay PT at 10/27/14 9243 Author: Kathrein Garay PT Service: (none) Author Type: Physical Therapist Filed: 10/27/14 5172 Date of Service: 10/27/141409 Status: Signed Vacuum Forming Machine Operator: Katherin Bohnet, PT (Physical Therapist) 10/27/14 1410 PT Last Visit PT Received On 10/27/14 Reason for Treatment Brain injury (TBI R SDH) Requires PT Follow Up Yes Follow up PT Only? Yes Assistance Required 2 person Steel Checker Needed No Precautions Other Precautions helmet when [...] Barriers to Discharge Physical Deficits Impacting Functional [place];Self-care Deficit s Impacting Functional [place] onver alem Willard, Provider Unknown - 10/27/2014 11:15 AM PST Therapy Progress Note by CADEN Mcgowan at 10/27/14 1115 Author: CADEN Mcgowan Service: (none) Author Type: Occupational Therapist Filed: 10/27/14 1230 Date of Service: 10/27/14 1115 Status: Signed Vacuum Forming Machine Operator: CADEN Mcgowan (Occupational Therapist) 10/27/14 1115 OT Last Visit OT Received On 10/27/14 Reason for Treatment Brain injury Requires OT Follow Up Yes Assistance Required 2 person Steel Checker Needed No Family/Caregiver Present No Precautions Other [...] Acute OT;SNF Equipment Recommended Shower chair with back;Blood Bank Laboratory Technologist;HHSH;Bedside commode Education Completed: Education Topic: ADLs, fine [...] commode, shower chair, hand held shower head, asparagus cutter Cognitive deficits impacting functional independence-would benefit from cognitive assess ment Physical deficits impacting functional independence Self-care deficits impacting functional independence Camille Montaño MD - 10/27/2014 8:08 AM PSTFormatting of this note might be different from th e original. Progress Notes by Cecilio Bravo MD at 10/27/14 08 Author: Cecilio Bravo MD Service: Hospitalist Author Type: Physician Filed: 10/27/14 1402 Date of Service: 10/27/14807 Status: Signed Vacuum Forming Machine Operator: Cecilio Bravo MD (Physician) [facility] Service: Hospitalist Progress Note Hospital Day: LOS: 16 days Post-Op Day: 11 Days Post-Op SUBJECTIVE Patient Summary: Per ICU note: The patient is a 53 y.o. male with significant past medical history of chronic alcohol abus e and multiple falls. Per ED report from [facility]: he was drinking earlier today at home and fell twice. He went to bed and then he was noted to be having what they thought was seizure activity and th ey could not wake him and called EMS. He was taken to the ED at [facility] in [place] a nd then transferred to the ED here for emergent neurosurgical evaluation for large acute rig ht SDH with 2 cm midline shift. He was admitted to the ICU post-op craniectomy and yosef drains x2. by Dr. Chong still intu bated and comatose off sedation [...] and multiple falls who was transferred from [facility] due to a fall, seizures . CT scan of the head there showed a large acute right SDH with 2 cm midline shift. Neurosur jarad services was involved and dr. Chong performed Craniectomy and post procedure he was [...] placement to improve s trength and mobility. internet marketing consultant are working on finding placement which may take few days, however if accepted then can be discharged for rehabilitation Events Overnight: 10/22 pt still somewhat confused, thought he was in [place]. He knew that he fell, but didn 't realize that he had hematoma and evacuation. 2; pt is doing well, but with some [...] lesions, or ulcers. DATA Recent Labs Lab 10/22/14323 WBC 7.9 RBC 3.62* HCT 36.2* MCV 99.9 MCH 33.2 MCHC 33.2 RDW 54.7* PLT 286 MPV 8.2 DIFFTYPE AUTOMATED Recent Labs Lab 10/25/1440510/24/14141110/22/14 0324 K 3.8 3.6 3.5 CL 101 [...] >60 >60 >60 BMP: Recent Labs Lab 10/25/1440510/24/14 14110/22/14 0324 NA 134* 134* 133* K 3.8 [...] Oct 17 2014 7:38AM Referring Provider Line: [phone] ID: 004 Ct Head Without Contrast 10/16/2014 [...] Oct 16 2014 6:08AM Referring Provider Line: [phone] E ID: [id number] PROBLEM LIST ASSESSMENT & PLAN Principal Problem: Subdural hematoma, with 2cm midline shift;; post-traumatic; Traumatic brain injury, close d 10/11; s/p subdural craniotomy and evacuation by dr. Chong. 10/14 extubated. 10/15 craniotomy drains removed. 10/16; transferred out of ICU. 10/22 dr. argueta consulted but deemed not a inpt rehab candidate. Still waiting for placement. Cont with physical therapy. Per CM note today : CM attempted to meet pt for d/c planning. CM could not arouse pt for d iscussion. CM routed updated medical notes to [facility] and [facility]. PT recommending SNF. CM spoke w/ Tyler at [facility] and Mary Beth at [facility], efaxed updated medical information, grace th are [...] this time for planned for placement in [place] once patient is off sitter for 48 hrs. Otherwise patient continues to interact appropriately at this time and no impulsiveness is shown. Patient is mostly a time in that chair or in bed and sleepin g. 10/27 pt is alert today, no complications. Continue with PT. Pt without sitter. Pending plac ement still. Active Problems: Alcohol abuse / no signs [...] Status: Full Code Cecilio Bravo MD 10/27/2014 Zeny Rodgers OTR/L - 10/26/2014 4:31 PM PSTFormatting of this note might be different from the o riginal. Therapy Progress Note by CADEN Narvaez at 10/26/14 1631 Author: CADEN Narvaez Service: (none) Author Type: Occupational Therapist Filed: 10/26/14 1636 Date of Service: 10/26/14 1631 Status: Signed Vacuum Forming Machine Operator: CADEN Narvaez (Occupational Therapist) 10/26/14 1600 Time Calculation Start Time 1600 Stop Time 1615 Time Calculation (min) 15 min $ ADLs/IADLs ADLS/IADLS Charges Home management training $Home Management Training 8-22 mins Therapy Time 15 Minutes 10/26/14 1600 OT Last Visit OT Received On 10/26/14 Reason for Treatment Brain injury Requires OT Follow Up Yes Assistance Required 2 person Steel Checker Needed No Family/Caregiver Present No Precautions Other [...] his mouth. about 4 rounds of gentle sjjbr-qfbz-il awakened. Activity Tolerance Activity Tolerance Patient limited [...] elevated Grooming Final Score 5 Comprehension (in [place] language) 3 - Patient requires moderate assist to comprehend DUE TO? needing parts of sentences repea stephenie 2 - Patient requires maximal assist to comprehend DUE TO? only understanding simple express ions Comprehension Final Score 2 - Maximal assistance Expression (in [place] language) 2 - Patient requires maximal assist [...] alarm for safety Memory Final Score 1 att, CADEN Brower - 10/26/2014 3:54 PM PST Therapy Progress Note by CADEN Narvaez at 10/26/14 1554 Author: CADEN Narvaez Service: (none) Author Type: Occupational Therapist Filed: 10/26/14 1632 Date of Service: 10/26/14 1554 Status: Signed Vacuum Forming Machine Operator: CADEN Narvaez (Occupational Therapist) Chart opened in error onversion Transa ction, Provider Unknown - 10/26/2014 1:34 PM PST Progress Notes by Anna Venegas RD at 10/26/14 1334 Author: Anna Venegas RD Service: (none) Author Type: Registered Dietitian Filed: 10/26/14 1347 Date of Service: 10/26/14 1334 Status: Signed Vacuum Forming Machine Operator: Anna Venegas RD (Doyle Dietitian) Nutrition Follow-Up [...] on current weight of 85 kg Kcal: 4552-1800 (25-30 kcal/kg) Protein: 102-128 gr (1.2-1.5 gr/kg) [...] in 4 days, per nutrition protocol. Anna Venegas RD 10/26/2014 halia Simmons PT - 10/26/2014 1:13 PM PST Therapy Progress Note by Thalia Simmons PT at 10/26/14 1313 Author: Thalia Simmons PT Service: (none) Author Type: Physical Therapist Filed: 10/26/14 1129 Date of Service: 10/26/14 1313 Status: Signed Vacuum Forming Machine Operator: Thalia Simmons PT (Physical Therapist) 10/26/14 1313 [...] limited by fatigue Nurse Made Aware RN Tamiko Safety Devices Safety Devices in Place (bed [...] Service: (none) Author Type: Massage Therapist Filed: 10/26/148 Date of Service: 10/26/141017 Status: Signed Vacuum Forming Machine Operator: ИВАН Elaine (Massage Therapist) 10/26/14 1018 Massage Therapy Interventions Locations Back;Neck;Shoulder Massage Therapy Technique Effleurage;Petrissage;Gabonese massage Response to treatment Decreased muscle tension;Decreased pain tegNatalee carmichael MS CCC-ARCHIVES SPECIALIST - 10/26/2014 10:14 AM PST Therapy Progress Note by Natalee Plata MS CCC-ARCHIVES SPECIALIST at 10/26/14 1014 Author: Natalee Plata MS CCC-ARCHIVES SPECIALIST Service: (none) Author Type: Speech and Language Pathologist Filed: 10/26/14 1014 Date of Service: 10/26/144 Status: Signed Vacuum Forming Machine Operator: Natalee Plata MS CCC-ARCHIVES SPECIALIST (Speech and Language Pathologist) 10/26/14 0945 Swallowing Assessment Eval Swallowing Treatment Yes Initial Swallow Assessment Behavior/Cognition Cooperative;Neuro impairment Patient Positioning Upright in chair Consistencies Consistencies Assessed Yes Thin Presentation Cup;Self Fed Oral Phase Thin WFL Pharyngeal Phase Cough - immediate Riner Presentation Cup;Self Fed Oral WFL Pharyngeal Phase No overt signs or symptoms of aspiration Dysphagia Mechanically Altered Presentation Spoon Oral Phase WFL Pharyngeal Phase No overt signs or symptoms of aspiration Dysphagia Advanced Presentation Spoon Oral Phase WFL Pharyngeal Phase No overt signs or symptoms of aspiration Recommendations Liquids Consistency Recommendations Riner thick Diet Consistency Recommendation Pureed Recommendations Dysphagia [...] treatment;Continue with current plan Natalee Plata MS CCC-ARCHIVES SPECIALIST ljaylon, Me shari Baumann PT - 10/26/2014 8:58 AM PSTFormatting of this note might be different from the madelin booker. Therapy Progress Note by Thalia Simmons PT at 10/26/14 0858 Author: Thalia Simmons PT Service: (none) Author Type: Physical Therapist Filed: 10/26/14 0937 Date of Service: 10/26/14857 Status: Signed Vacuum Forming Machine Operator: Thalia Simmons PT (Physical Therapist) 10/26/14 0858 PT Last Visit PT Received On 10/26/14 Reason for Treatment Brain injury (SDH. bone flap removed) Requires PT Follow Up Yes Follow up PT Only? Yes Assistance Required 2 person Steel Checker Needed No Precautions Other Precautions helmet on [...] limited by fatigue Nurse Made Aware RN Tamiko Safety Devices Type of Devices (call light in hand, alarm on chair) Plan Treatment/Interventions Continue per Primary PT POC Progress Slow progress, decreased activity tolerance Recommendation Recommendations SNF Equipment Recommended (TBD) Barriers to Discharge Physical Deficits Impacting Functional [place];Self-care Deficit s Impacting Functional [place];Neurological Impairment (see comment);Pain VS: 117/82 87 98% ra Cecilio Briones MD - 10/26/2014 8:09 AM PST Progress Notes by Cecilio Bravo MD at 10/26/14808 Author: Cecilio Bravo MD Service: Hospitalist Author Type: Physician Filed: 10/26/14 5940 Date of Service: 10/26/14808 Status: Signed Vacuum Forming Machine Operator: Cecilio Bravo MD (Physician) [facility] Service: Hospitalist Progress Note Hospital Day: LOS: 15 days Post-Op Day: 11 Days Post-Op SUBJECTIVE Patient Summary: Per ICU note: The patient is a 53 y.o. male with significant past medical history of chronic alcohol abus e and multiple falls. Per ED report from [facility]: he was drinking earlier today at home and fell twice. He went to bed and then he was noted to be having what they thought was seizure activity and th ey could not wake him and called EMS. He was taken to the ED at [facility] in [place] a nd then transferred to the ED here for emergent neurosurgical evaluation for large acute rig ht SDH with 2 cm midline shift. He was admitted to the ICU post-op craniectomy and yosef drains x2. by Dr. Chong still intu bated and comatose off sedation [...] and multiple falls who was transferred from [facility] due to a fall, seizures . CT scan of the head there showed a large acute right SDH with 2 cm midline shift. Neurosur jarad services was involved and dr. Chong performed Craniectomy and post procedure he was [...] placement to improve s trength and mobility. internet marketing consultant are working on finding placement which may take few days, however if accepted then can be discharged for rehabilitation Events Overnight: 2/ pt still somewhat confused, thought he was in [place]. He knew that he fell, but didn [...] ulcers. DATA Recent Labs Lab 10/22/1432310/20/14 0335 WBC 7.9 9.4 RBC 3.62* 3.83* HCT 36.2* 38.0* MCV 99.9 99.2 MCH 33.2 33.3 MCHC 33.2 33.6 RDW 54.7* 56.9* PLT 286 327 MPV 8.2 8.3 DIFFTYPE AUTOMATED AUTOMATED Recent Labs Lab 10/25/1440510/24/14141110/22/14323 K 3.8 3.6 3.5 CL 101 101 100 CO2 28 29 26 ANIONGAP 9 8 11 GLUF 119* 118* 112* BUN 8 7* 8 CREATININE 0.54* 0.57* 0.65* BCR 15 12 CA 9.4 9.5 9.2 PROT -- [...] >60 >60 Recent Labs Lab 10/22/1432310/20/14 0335 MG 1.9 2.1 No results for [...] Oct 17 2014 7:38AM Referring Provider Line: [phone] ID: [id number] Ct Head Without Contrast 10/16/2014 [...] Oct 16 2014 6:08AM Referring Provider Line: [phone] E ID: [id number] PROBLEM LIST ASSESSMENT & PLAN Principal Problem: Subdural hematoma, with 2cm midline shift;; post-traumatic; Traumatic brain injury, close d 10/11; s/p subdural craniotomy and evacuation by dr. Chong. 10/14 extubated. 10/15 craniotomy drains removed. 10/16; transferred out of ICU. 10/22 dr. argueta consulted but deemed not a inpt rehab candidate. Still waiting for placement. Cont with physical therapy. Per CM note today : CM attempted to meet pt for d/c planning. CM could not arouse pt for d iscussion. CM routed updated medical notes to [facility] and [facility]. PT recommending SNF. CM spoke w/ Tyler at [facility] and Mary Beth at [facility], efaxed updated medical information, grace th are looking into the pt's case. RN reports pt has not had sitter and no behavioral proble ms. 2: Patient continues to do well. However he is a little bit more agitated today. Wanti ng to get out of bed. Sitter at bedside today. He is mentation however continues to be lab ile. 2/ cont to have sitter, but pt interactive appropriate. Short term memory is very poor. 10/25 cont to have sitter, pt hasn't shown any impulsiveness today. Memory cont to be poor. No appropriate interactions at this time. 10/26 is to have no beds at this time for planned for placement in [place] once patient is off sitter for 48 hrs. Otherwise patient continues to interact appropriately at this time and no impulsiveness is shown. Patient is mostly a time in that chair or in bed and sleepin g. Active Problems: Alcohol abuse 2/2 no signs [...] Notes by Cecilio Bravo MD at 10/25/14 2016 Author: Cecilio Bravo MD Service: Hospitalist Author Type: Physician Filed: 10/25/14 9828 Date of Service: 10/25/141623 Status: Signed Vacuum Forming Machine Operator: Cecilio Bravo MD (Physician) [facility] Service: Hospitalist Progress Note Hospital Day: LOS: 14 days Post-Op Day: 11 Days Post-Op SUBJECTIVE Patient Summary: Per ICU note: The patient is a 53 y.o. male with significant past medical history of chronic alcohol abus e and multiple falls. Per ED report from [facility]: he was drinking earlier today at home and fell twice. He went to bed and then he was noted to be having what they thought was seizure activity and th ey could not wake him and called EMS. He was taken to the ED at [facility] in [place] a nd then transferred to the ED here for emergent neurosurgical evaluation for large acute rig ht SDH with 2 cm midline shift. He was admitted to the ICU post-op craniectomy and yosef drains x2. by Dr. Chong still intu bated and comatose off sedation [...] and multiple falls who was transferred from [facility] due to a fall, seizures . CT scan of the head there showed a large acute right SDH with 2 cm midline shift. Neurosur jarad services was involved and dr. Chong performed Craniectomy and post procedure he was [...] placement to improve s trength and mobility. internet marketing consultant are working on finding placement which may [...] Oct 17 2014 7:38AM Referring Provider Line: [phone] ID: 004 Ct Head Without Contrast 10/16/2014 [...] Oct 16 2014 6:08AM Referring Provider Line: [phone] E ID: [id number] PROBLEM LIST ASSESSMENT & PLAN Principal Problem: Subdural hematoma, with 2cm midline shift;; post-traumatic; Traumatic brain injury, close d 10/11; s/p subdural craniotomy and evacuation by dr. Chong. 10/14 extubated. 10/15 craniotomy drains removed. 10/16; transferred out of ICU. 10/22 dr. argueta consulted but deemed not a inpt rehab candidate. Still waiting for placement. Cont with physical therapy. Per CM note today : CM attempted to meet pt for d/c planning. CM could not arouse pt for d iscussion. CM routed updated medical notes to [facility] and [facility]. PT recommending SNF. CM spoke w/ Tyler at [facility] and Mary Beth at [facility], efaxed updated medical information, grace th are looking into the pt's case. RN reports pt has not had sitter and no behavioral proble ms. 10/23: Patient continues to do well. However he is a little bit more agitated today. Wanti ng to get out of bed. Sitter at bedside today. He is mentation however continues to be lab ile. 2/ cont to have sitter, but pt interactive appropriate. Short term memory is very poor. 10/25 cont to have sitter, pt hasn't shown any impulsiveness today. Memory cont to be poor. No appropriate interactions at this time. Active Problems: Alcohol abuse 2/ no signs [...] Cecilio Bravo MD 10/25/2014 Lin Richardson MS CCC-ARCHIVES SPECIALIST - 10/25/2014 3:31 PM PST Therapy Progress Note by Emilie Sutherland MS CCC-ARCHIVES SPECIALIST at 10/25/14 1531 Author: Emilie Sutherland MS CCC-ARCHIVES SPECIALIST Service: (none) Author Type: Speech Therapist Filed: 10/25/14 1532 Date of Service: 10/25/14 1531 Status: Signed Vacuum Forming Machine Operator: Emilie Sutherland MS CCC-ARCHIVES SPECIALIST (Speech Therapist) 10/25/14 1531 ARCHIVES SPECIALIST Last Visit ARCHIVES SPECIALIST Received On 10/25/14 Requires ARCHIVES SPECIALIST Follow Up Unavailable (pt asleep and has [...] Date of Service: 10/25/14 1145 Status: Signed Vacuum Forming Machine Operator: Trina Maldonado PT (Physical Therapist) 10/25/14 1145 PT Last Visit PT Received On 10/25/14 Reason for Treatment Brain injury (right SDH) Requires PT Follow Up Yes Follow up PT Only? Yes Assistance Required 2 person Steel Checker Needed No Precautions Other Precautions helmet for [...] the stedy. B knee buckling noted wi th marching in place. Due to knee buckling [...] Author: TABITHA Armstrong Service: (none) Author Type: Director Of Market Intelligence Filed: 10/25/14 1003 Date of Service: 10/25/14 1002 Status: Signed Vacuum Forming Machine Operator: TABITHA Armstrong (Director Of Market Intelligence) CM received a phone call from Loan at [facility] who agreed to accept pt once he dem onstrates he does not require a sitter for 48hrs. Jem NOEL onver alem Transaction, Provider Unknown - 10/24/2014 2:43 PM PST Case Management by TABITHA Armstrong at 10/24/14 1443 Author: TABITHA Armstrong Service: (none) Author Type: Director Of Market Intelligence Filed: 10/24/14 9290 Date of Service: 10/24/14 9533 Status: Signed Vacuum Forming Machine Operator: TABITHA Armstrong (Director Of Market Intelligence) CM phoned both [facility] to see if they can accept pt. [facility] declined to accept pt. [facility] is still considering him. CM faxed a referral to [facility] as well. Jem NOEL Camille Montaño MD - 10/24/2014 2:00 PM PSTFormatting of this note might be different from marylou cook original. Progress Notes by Cecilio Bravo MD at 10/24/14 1400 Author: Cecilio Bravo MD Service: Hospitalist Author Type: Physician Filed: 10/24/14 1401 Date of Service: 10/24/14 1400 Status: Signed Vacuum Forming Machine Operator: Cecilio Bravo MD (Physician) [facility] Service: Hospitalist Progress Note Hospital Day: LOS: 13 days Post-Op Day: 11 Days Post-Op SUBJECTIVE Patient Summary: Per ICU note: The patient is a 53 y.o. male with significant past medical history of chronic alcohol abus e and multiple falls. Per ED report from [facility]: he was drinking earlier today at home and fell twice. He went to bed and then he was noted to be having what they thought was seizure activity and th robbie could not wake him and called EMS. He was taken to the ED at [facility] in [place] a nd then transferred to the ED here for emergent neurosurgical evaluation for large acute rig ht SDH with 2 cm midline shift. He was admitted to the ICU post-op craniectomy and yosef drains x2. by Dr. Chong still intu bated and comatose off sedation [...] and multiple falls who was transferred from [facility] due to a fall, seizures . CT scan of the head there showed a large acute right SDH with 2 cm midline shift. Neurosur jarad services was involved and dr. Chong performed Craniectomy and post procedure he was [...] placement to improve s trength and mobility. internet marketing consultant are working on finding placement which may take few days, however if accepted then can be discharged for rehabilitation Events Overnight: 2/2 pt still somewhat confused, thought he was in [place]. He knew that he fell, but didn [...] lesions, or ulcers. DATA Recent Labs Lab 10/22/1432310/20/145 10/18/14 0413 WBC 7.9 9.4 9.3 RBC 3.62* 3.83* 3.77* HCT 36.2* 38.0* 37.3* MCV 99.9 99.2 98.9 MCH 33.2 33.3 32.3 MCHC 33.2 33.6 32.6 RDW 54.7* 56.9* 58.6* PLT 286 327 274 MPV 8.2 8.3 8.1 DIFFTYPE AUTOMATED AUTOMATED AUTOMATED Recent Labs Lab 10/22/1432310/21/14 0400 10/20/14 0335 K 3.5 3.6 3.8 [...] Oct 17 2014 7:38AM Referring Provider Line: [phone] ID: [id number] Ct Head Without Contrast 10/16/2014 [...] Oct 16 2014 6:08AM Referring Provider Line: [phone] E ID: [id number] PROBLEM LIST ASSESSMENT & PLAN Principal Problem: Subdural hematoma, with 2cm midline shift;; post-traumatic; Traumatic brain injury, close d 10/11; s/p subdural craniotomy and evacuation by dr. Chong. 10/14 extubated. 10/15 craniotomy drains removed. 10/16; transferred out of ICU. 10/22 dr. argueta consulted but deemed not a inpt rehab candidate. Still waiting for placement. Cont with physical therapy. Per CM note today : CM attempted to meet pt for d/c planning. CM could not arouse pt for d iscussion. CM routed updated medical notes to [facility] and [facility]. PT recommending SNF. CM spoke w/ Tyler at [facility] and Mary Beth at [facility], efaxed updated medical information, grace th are looking into the pt's case. RN reports pt has not had sitter and no behavioral proble ms. 2/3: Patient continues to do well. However he is a little bit more agitated today. Wanti ng to get out of bed. Sitter at bedside today. He is mentation however continues to be lab ile. 2/ cont to have sitter, but pt interactive appropriate. Short term memory is very poor. Active Problems: Alcohol abuse 2/2 no signs of DTs. Cont to monitor. 23 no signs of withdrawal symptoms. Alcohol withdrawal; [...] Status: Full Code Cecilio Bravo MD 10/24/2014 ovarbritni ospina, Jessica Christy MA, CCC-ARCHIVES SPECIALIST - 10/24/2014 11:48 AM PST Therapy Progress Note by Jessica Headley MA CCC-ARCHIVES SPECIALIST at 10/24/14 1148 Author: Jessica Headley MA CCC-ARCHIVES SPECIALIST Service: (none) Author Type: Speech and Language Pathologist Filed: 10/24/14 1148 Date of Service: 10/24/14 1148 Status: Signed Vacuum Forming Machine Operator: Jessica Headley MA CCC-ARCHIVES SPECIALIST (Speech and Language Pathologist) 10/24/14 1123 Swallowing Assessment Eval Swallowing Treatment Yes Initial Swallow Assessment Behavior/Cognition Cooperative;Alert Consistencies Consistencies Assessed Yes Thin Presentation Cup;Spoon Oral Phase Thin WFL Pharyngeal Phase Cough - immediate (immediate coughing with thins via cup) Riner Presentation Cup;Self Fed Oral WFL Pharyngeal Phase No overt signs or symptoms of aspiration Puree Presentation Spoon Oral Phase WFL Pharyngeal No overt signs or symptoms of aspiration;Delayed Swallow Recommendations Liquids Consistency Recommendations Riner thick Diet Consistency Recommendation Pureed Recommendations Dysphagia [...] Goals Pt will have safe/efficient oral intake Riner thick liquids;Puree diet;With feeding sherley t;Goal progressing Pt will tolerate diet upgrade trials With 1:1 supervision;Goal progressing onver alem Willard, Provider Unknown - 10/24/2014 10:07 AM PST Therapy Progress Note by ИВАН Elaine at 10/24/14 1007 Author: ИВАН Elaine Service: (none) Author Type: Massage Therapist Filed: 10/24/14 1007 Date of Service: 10/24/14 1007 Status: Signed Vacuum Forming Machine Operator: ИВАН Elaine (Massage Therapist) 10/24/14 1007 Massage Therapy Interventions Locations Back;Neck;Shoulder Massage Therapy Technique Effleurage;Petrissage;Gabonese massage Response to treatment Decreased muscle tension Camille Montaño MD - 10/23/2014 4:38 PM PSTFormatting of this note might be different from th e original. Progress Notes by Cecilio Bravo MD at 10/23/14 1638 Author: Cecilio Bravo MD Service: Hospitalist Author Type: Physician Filed: 10/23/14 1641 Date of Service: 10/23/14 1638 Status: Signed Vacuum Forming Machine Operator: Cecilio Bravo MD (Physician) [facility] Service: Hospitalist Progress Note Hospital Day: LOS: 12 days Post-Op Day: 11 Days Post-Op SUBJECTIVE Patient Summary: Per ICU note: The patient is a 53 y.o. male with significant past medical history of chronic alcohol abus e and multiple falls. Per ED report from [facility]: he was drinking earlier today at home and fell twice. He went to bed and then he was noted to be having what they thought was seizure activity and th ey could not wake him and called EMS. He was taken to the ED at [facility] in [place] a nd then transferred to the ED here for emergent neurosurgical evaluation for large acute rig ht SDH with 2 cm midline shift. He was admitted to the ICU post-op craniectomy and yosef drains x2. by Dr. Chong still intu bated and comatose off sedation [...] and multiple falls who was transferred from [facility] due to a fall, seizures . CT scan of the head there showed a large acute right SDH with 2 cm midline shift. Neurosur jarad services was involved and dr. Chong performed Craniectomy and post procedure he was [...] placement to improve s trength and mobility. internet marketing consultant are working on finding placement which may take few days, however if accepted then can be discharged for rehabilitation Events Overnight: 2/2 pt still somewhat confused, thought he was in [place]. He knew that he fell, but didn [...] Oct 17 2014 7:38AM Referring Provider Line: [phone] ID: [id number] Ct Head Without Contrast 10/16/2014 [...] Oct 16 2014 6:08AM Referring Provider Line: [phone] E ID: [id number] PROBLEM LIST ASSESSMENT & PLAN Principal Problem: Subdural hematoma, with 2cm midline shift;; post-traumatic; Traumatic brain injury, close d 10/11; s/p subdural craniotomy and evacuation by dr. Chong. 10/14 extubated. 10/15 craniotomy drains removed. 10/16; transferred out of ICU. 10/22 dr. argueta consulted but deemed not a inpt rehab candidate. Still waiting for placement. Cont with physical therapy. Per CM note today : CM attempted to meet pt for d/c planning. CM could not arouse pt for d iscussion. CM routed updated medical notes to [facility] and [facility]. PT recommending SNF. CM spoke w/ Tyler at [facility] and Mary Beth at [facility], efaxed updated medical information, grace th are looking into the pt's case. RN reports pt has not had sitter and no behavioral proble ms. 10/23: Patient continues to do well. However he is a little bit more agitated today. Wanti ng to get out of bed. Sitter at bedside today. He is mentation however continues to be lab ile. Active Problems: Alcohol abuse / no signs of DTs. Cont to monitor. 10/23 no signs of withdrawal symptoms. Alcohol withdrawal; resolved. Debility, unspecified; cont with therapy. Hyposmolality and/or hyponatremia; mild and stable. HTN: BP relatively controlled. 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 Hospital records reviewed. Labs and [...] Management by Yeimi Ruiz RN at 10/23/14 2302 Author: Yeimi Ruiz RN Service: (none) Author Type: Registered Nurse Filed: 10/23/14 1640 Date of Service: 10/23/14 1776 Status: Signed Vacuum Forming Machine Operator: Yeimi Ruiz RN (Registered Nurse) CM received a call from Sherry who is the Community Health Nurse from the [facility]. ([phone] and fax [phone]) She states that she can assist with [...] (none) Author Type: Physical Therapist Filed: 10/23/14 4020 Date of Service: 10/23/14 1140 Status: Signed Vacuum Forming Machine Operator: Amara Duran PT (Physical Therapist) 10/23/14 1140 PT Last Visit PT Received On 10/23/14 Reason for Treatment Brain injury (right SDH) Requires PT Follow Up Yes Follow up PT Only? Yes Focus for Next Treatment Formal Balance Assessment;Bed Mobility Technique;Transfer Techniqu e Assistance Required 2 person Steel Checker Needed No Precautions Other Precautions kye for [...] Barriers to Discharge Physical Deficits Impacting Functional [place] Recommendation Comments Pt. continues to require maximal assist for all mobility needs. Sebastian l need further skilled PT to address deficits prior to return home. onver Larissa Carey Unknown - 10/23/2014 11:29 AM PST Therapy Progress Note by ИВАН Poole at 10/23/14 1129 Author: ИВАН Poole Service: (none) Author Type: Massage Therapist Filed: 10/23/14 1130 Date of Service: 10/23/14 1129 Status: Signed Vacuum Forming Machine Operator: ИВАН Poole (Massage Therapist) 10/23/14 1100 Massage Therapy Interventions Locations Back;Neck;Shoulder Massage Therapy Technique Effleurage;Petrissage;Gabonese massage;Trigger point Response to treatment Decreased pain;Decreased muscle tension Goals Short Term Goal #1 Decreased muscle tension;Decreased pain;Increase comfort;Increased relax ation Camille Montaño MD - 10/22/2014 6:11 PM PSTFormatting of this note might be different from th e original. Progress Notes by Cecilio Bravo MD at 10/22/141810 Author: Cecilio Bravo MD Service: Hospitalist Author Type: Physician Filed: 10/22/141825 Date of Service: 10/22/141810 Status: Signed Vacuum Forming Machine Operator: Cecilio Bravo MD (Physician) [facility] Service: Hospitalist Progress Note Hospital Day: LOS: 11 days Post-Op Day: 11 Days Post-Op SUBJECTIVE Patient Summary: Per ICU note: The patient is a 53 y.o. male with significant past medical history of chronic alcohol abus e and multiple falls. Per ED report from [facility]: he was drinking earlier today at home and fell twice. He went to bed and then he was noted to be having what they thought was seizure activity and th ey could not wake him and called EMS. He was taken to the ED at [facility] in [place] a nd then transferred to the ED here for emergent neurosurgical evaluation for large acute rig ht SDH with 2 cm midline shift. He was admitted to the ICU post-op craniectomy and yosef drains x2. by Dr. Chong still intu bated and comatose off sedation [...] and multiple falls who was transferred from [facility] due to a fall, seizures . CT scan of the head there showed a large acute right SDH with 2 cm midline shift. Neurosur jarad services was involved and dr. Chong performed Craniectomy and post procedure he was [...] placement to improve s trength and mobility. internet marketing consultant are working on finding placement which may take few days, however if accepted then can be discharged for rehabilitation Events Overnight: 2/ pt still somewhat confused, thought he was in [place]. He knew that he fell, but didn [...] normal size, location, and contour. Throat dr bains and without exudates. NECK: is supple, full [...] lesions, or ulcers. DATA Recent Labs Lab 10/22/1432310/20/1433410/18/14 0413 WBC 7.9 9.4 9.3 RBC 3.62* 3.83* 3.77* HCT 36.2* 38.0* 37.3* MCV 99.9 99.2 98.9 MCH 33.2 33.3 32.3 MCHC 33.2 33.6 32.6 RDW 54.7* 56.9* 58.6* PLT 286 327 274 MPV 8.2 8.3 8.1 DIFFTYPE AUTOMATED AUTOMATED AUTOMATED Recent Labs Lab 10/22/1432310/21/1439910/20/14 033 K 3.5 3.6 3.8 CL 100 100 98* CO2 26 27 26 ANIONGAP 11 10 11 GLUF 112* 119* 121* BUN 8 11 10 CREATININE 0.65* 0.64* 0.60* BCR 12 17 17 CA 9.2 9.4 9.3 EGFR >60 >60 >60 BMP: Recent Labs Lab 10/22/1432310/21/14 0400 10/20/14 033 NA 133* 133* 131* K 3.5 [...] Oct 17 2014 7:38AM Referring Provider Line: [phone] ID: [id number] Ct Head Without Contrast 10/16/2014 [...] Oct 16 2014 6:08AM Referring Provider Line: [phone] E ID: [id number] PROBLEM LIST ASSESSMENT & PLAN Principal Problem: Subdural hematoma, with 2cm midline shift;; post-traumatic; Traumatic brain injury, close d 10/11; s/p subdural craniotomy and evacuation by dr. Chong. 10/14 extubated. 10/15 craniotomy drains removed. 10/16; transferred out of ICU. 10/22 dr. argueta consulted but deemed not a inpt rehab candidate. Still waiting for placement. Cont with physical therapy. Per CM note today : CM attempted to meet pt for d/c planning. CM could not arouse pt for d iscussion. CM routed updated medical notes to [facility] and [facility]. PT recommending SNF. CM spoke w/ Tyler at [facility] and Mary Beth at [facility], efaxed updated medical information, grace th are [...] Full Code Cecilio Bravo MD 10/22/2014 Lin Richardson, MS CCC-ARCHIVES SPECIALIST - 10/22/2014 3:22 PM PST Therapy Progress Note by Emilie Sutherland MS CCC-ARCHIVES SPECIALIST at 10/22/14 1522 Author: Emilie Sutherland MS CCC-ARCHIVES SPECIALIST Service: (none) Author Type: Speech Therapist Filed: 10/22/14 1522 Date of Service: 10/22/14 1522 Status: Signed Vacuum Forming Machine Operator: Emilie Sutherland MS CCC-ARCHIVES SPECIALIST (Speech Therapist) 10/22/14 6530 ARCHIVES SPECIALIST Last Visit ARCHIVES SPECIALIST Received On 10/22/14 Requires ARCHIVES SPECIALIST Follow Up Unavailable (attempted pt just given pain meds, very tired) Attempted to do trials, however pt every difficulty to keep wake. onversion T ransaction, Provider Unknown - 10/22/2014 3:15 PM PSTFormatting of this note might be diffe rent from the original. Case Management by TABITHA Dejesus at 10/22/14 1515 Author: TABITHA Dejesus Service: (none) Author Type: Piano Assembler Filed: 10/22/14 1527 Date of Service: 10/22/14 1515 Status: Addendum Vacuum Forming Machine Operator: TABITHA Dejesus (Piano Assembler) Related Notes: Original Note by TABITHA Dejesus (Piano Assembler) filed at 10/22/14 1518 CM attempted to meet pt for d/c planning. CM could not arouse pt for discussion. CM route d updated medical notes to [facility] and [facility]. PT recommending SNF. CM spoke w/ Tyler at [facility] and Mary Beth at [facility], efaxed updated medical information, both are looking in to the pt's case. RN reports pt has not had sitter and no behavioral problems. TABITHA Dejesus onver alem Transaction, Provider Unknown - 10/22/2014 2:35 PM PST Progress Notes by Jennifer Alberts RD at 10/22/14 1435 Author: Jennifer Alberts RD Service: (none) Author Type: Registered Dietitian Filed: 10/22/14 1521 Date of Service: 10/22/14 1435 Status: Addendum Vacuum Forming Machine Operator: Jennifer Alberts RD (Registered Dietitian) Related Notes: Original Note by Jennifer Alberts RD (Registered Dietitian) filed at 10/22/14 1513 Cosigner: Annaloi Venegas RD at 10/22/14 1522 Nutrition Follow-Up [...] time; Cr .65 (L). Nutrition-focused physical findings: ARCHIVES SPECIALIST following for dysphagia. Diet order/current intake: Pureed, [...] offered daily. Recommendations: 1. Continue diet per ARCHIVES SPECIALIST. 2. Magic cups with meal trays. 3. Monitor pt's weight. 4. Offer high calorie foods on meal trays. Monitoring: Will follow up in 4 days per nutrition protocol. Jennifer Alberts MS, internet researcher, 10/22/14. onver alem Transaction, Provider Unknown - 10/22/2014 9:56 AM PST Therapy Progress Note by ИВАН Elaine at 10/22/14955 Author: ИВАН Elaine Service: (none) Author Type: Massage Therapist Filed: 10/22/1456 Date of Service: 10/22/14955 Status: Signed Vacuum Forming Machine Operator: Pelon M Bryner, LMP (Massage Therapist) 10/22/14 0956 MT Last Visit MT Received On 10/22/14 MT Therapy Visit Not available (pt resting) Dorcas Willett, PT - 10/22/2014 9:00 AM PSTFormatting of this note might be different from t he original. Therapy Progress Note by Dorcas Holguin PT at 10/22/14 09 Author: Dorcas Holguin PT Service: (none) Author Type: Physical Therapist Filed: 10/22/14 1104 Date of Service: 10/22/14899 Status: Signed Vacuum Forming Machine Operator: Dorcas Holguin PT (Physical Therapist) 10/22/14899 PT Last Visit PT Received On 10/22/14 Reason for Treatment (R SDH) Requires PT Follow Up Yes Follow up PT Only? Yes Focus for Next Treatment Formal Balance Assessment;Bed Mobility Technique;Transfer Techniqu e PT Eval/Reassessment Date 10/22/14 Assistance Required 2 person Steel Checker Needed No Precautions Other Precautions helmet when [...] oriented to self also remembers RN and EVALUATION ANALYST;s name. Bed Mobility Rolling Moderate assist Supine [...] advance LLE however leg neal) Assistive Device (BACCARAT MANAGER on 2 therapists) Static Sitting Balance Static [...] 7 # of days Recommendation Recommendations SNF Ana Luisa, Travon kaur MD - 10/21/2014 8:46 AM PSTFormatting of this note might be different from the velasquez garsia Progress Notes by Travon Mitchell MD at 10/21/14 0846 Author: Travon Mitchell MD Service: Hospitalist Author Type: Physician Filed: 10/21/14 1411 Date of Service: 10/21/14845 Status: Addendum Vacuum Forming Machine Operator: Travon Mitchell MD (Physician) Related Notes: Original Note by Travon Mitchell MD (Physician) filed at 10/21/14 14 07 [facility] Service: Hospitalist Progress Note Tony Edouardcharlene 53 y.o. [id number] 438/438-1 male PER PT NONE Hospital Day: LOS: 10 days SUBJECTIVE Patient Summary: Patient is a 53 year old male with past medical history of Chronic Alcohol Abuse, Dependenc e and multiple falls who was transferred from [facility] due to a fall, seizures . CT scan of the head there showed a large acute right SDH with 2 cm midline shift. Neurosur jarad services was involved and dr. Chong performed Craniectomy and post procedure he was [...] placement to improve s trength and mobility. internet marketing consultant are working on finding placement which may [...] acute distr ess. HEENT: Head: S/P Craniotomy. [place] at midline and temporo parietoccipital area of [...] with midline shift. S/P Craniectomy by Dr. Chong and followed by Dr. Nj from [facility]. He is making slow progress and [...] Discharge plans to a SNF for rehabilitation. finance and administration manager is working on placement which cou ld be challenging due to [place] Medicaid. His insurance may contribute in the delayed disch arge due to placement and or acceptance at a facility. Spent more than 30 minutes reviewing patient's labs, diagnostic tests, examination of patie nt, discussing plan of care with staff, also helped in coordination of care and answered sta ff's questions. Trvaon Mitchell MD 10/21/2014 alena, CADEN Brower - 10/20/2014 3:33 PM PST . Therapy Progress Note by CADEN Narvaez at 10/20/14 1533 Author: CADEN Narvaez Service: (none) Author Type: Occupational Therapist Filed: 10/20/14 1539 Date of Service: 10/20/14 1533 Status: Signed Vacuum Forming Machine Operator: CADEN Narvaez (Occupational Therapist) 10/20/14 1500 OT Last Visit OT Received On 10/20/14 Reason for Treatment Brain injury Requires OT Follow Up On hold Plan Requires OT Follow Up On hold RN states that pt is not at his best right now. Suggests to return tomorrow. ashmi, Travon garcia MD - 10/20/2014 9:23 AM PST . Progress Notes by Travon Mitchell MD at 10/20/14922 Author: Travon Mitchell MD Service: Hospitalist Author Type: Physician Filed: 10/20/14 1506 Date of Service: 10/20/14922 Status: Signed Vacuum Forming Machine Operator: Travon Mitchell MD (Physician) [facility] Service: Hospitalist Progress Note Tony Fortune 53 y.o. [id number] 438/[id number] male PER PT NONE Hospital Day: LOS: 9 days SUBJECTIVE Patient Summary: Patient is a 53 year old male with past medical history of Chronic Alcohol Abuse, Dependenc e and multiple falls who was transferred from [facility] due to a fall, seizures . CT scan of the head there showed a large acute right SDH with 2 cm midline shift. Neurosur jarad services was involved and dr. Chong performed Craniectomy and post procedure he was [...] in acute distress. HEENT: Head: S/P Craniotomy. [place] at midline and temporo parietoccipital area of [...] with midline shift. S/P Craniectomy by Dr. Chong and now followed by Dr. Nj from [facility] rosurgery services. He is making [...] Discharge plans to a SNF for rehab. finance and administration manager is working on placement which could be harley llenging due to [place] Medicaid insurance and may delay the discharge till accepted at a [facility]. Spent more than 30 minutes reviewing patient's labs, diagnostic tests, examination of patie nt, discussing plan of care with staff, also helped in coordination of care and answered sta ff's questions. Travon Mitchell MD 10/20/2014 onversion Trans action, Provider Unknown - 10/19/2014 3:01 PM PST Therapy Progress Note by CADEN Mcgowan at 10/19/14 1501 Author: CADEN Mgcowan Service: (none) Author Type: Occupational Therapist Filed: 10/19/14 9492 Date of Service: 10/19/14 1501 Status: Signed Vacuum Forming Machine Operator: CADEN Mcgowan (Occupational Therapist) 10/19/14 1501 Precautions Other Precautions helmet on when OOB Home Environment Bathroom Shower/Tub Tub/shower unit;Shower unit with threshold (uses walk in shower) Bathroom Toilet Standard Bathroom Equipment Grab bars in shower/bath Additional Comments Refer to PT note for PLOF Prior Function Level of [place] Independent with functional mobility;Independent with ADLs;Independe nt with IADLs Lives With Sibling(s) (stated living with brother) ADL Assistance Independent Home ADL's Independent ADL Eating Assistance Total (requiring 1:1 for feeding, per EVALUATION ANALYST) Grooming Assistance Dependent (per EVALUATION ANALYST) Grooming impacted by Cognitive deficits;Ability to follow [...] for ADLs/IADLs) Equipment Recommended Shower chair with back;Blood Bank Laboratory Technologist;HHSH;Grab bars withing home;Bedside co mmode Education Completed: [...] Self-care deficits impacting functional independence JAVIER Mcgowan, CSRS 10/19/2014 ovarJessica reis MA, CCC-ARCHIVES SPECIALIST - 10/19/2014 2:12 PM PSTFormatting of this note might be differ ent from the original. Therapy Progress Note by Jessica Headley MA CCC-ARCHIVES SPECIALIST at 10/19/14 1412 Author: Jessica Headley MA CCC-ARCHIVES SPECIALIST Service: (none) Author Type: Speech and Language Pathologist Filed: 10/19/14 1413 Date of Service: 10/19/141411 Status: Signed Vacuum Forming Machine Operator: Jessica Headley MA CCC-ARCHIVES SPECIALIST (Speech and Language Pathologist) 10/19/14 1750 Swallowing Assessment Eval Swallowing Treatment Yes Initial Swallow Assessment Behavior/Cognition Lethargic Consistencies Consistencies Assessed Yes Thin Presentation Spoon;Cup Oral Phase Thin Anterior Spillage Left Pharyngeal Phase Delayed swallow initiated;Spontaneous double swallow;Cough - delayed Puree Presentation Spoon Oral Phase Increased oral holding time Pharyngeal Delayed Swallow;No overt signs or symptoms of aspiration Recommendations Liquids Consistency Recommendations Riner thick Diet Consistency Recommendation Pureed (1-2 snacks [...] Notes by Debora Ott PA-C at 10/19/14 8253 Author: Debora Ott PA-C Service: Neurosurgery Author Type: Physician Senior Oracle Dba - Ce rtified Filed: 10/19/14 4294 Date of Service: 10/19/14 5020 Status: Signed Vacuum Forming Machine Operator: Debora Ott PA-C (Physician Senior Oracle Dba - Certified) [facility] Service: Neurosurgery Progress Note Hospital Day: LOS: 8 days Post-Op Day: 8 Days Post-Op SUBJECTIVE Patient Summary: s/p craniectomy for large right SDH Events Overnight: Complaining of pain. IPR denied because he lives in [place], antoinette guardado on placement in [place]. Helmet arrived. Scheduled Medications docusate sodium 100 [...] (36.9 C)] 97.9 F (36.6 C) (10/19 1105) BP: (118-139)/(67-84) 118/80 mmHg (10/19 110) Heart Rate: [78-95] 87 (10/19 110) Resp: [16-24] 16 (10/19 1105) SpO2: [98 %-100 %] 98 % (10/19 1105) I&O Last 3 Shifts: 10/17 1900 - 10/19 0659 In: 1915 [P.O.:380; I.V.:1335] Out: - Gen: [...] q6 for oral pain control management - Diamond need to come out end of next week - FU in neurosurgery clinic in 4 weeks Code Status: Full Code Debora Ott PA-C 10/19/2014 onversio n Transaction, Provider Unknown - 10/19/2014 1:46 PM PSTFormatting of this note might be di fferent from the original. Case Management by TABITHA Armstrong at 10/19/14 1346 Author: TABITHA Armstrong Service: (none) Author Type: Director Of Market Intelligence Filed: 10/19/14 1418 Date of Service: 10/19/14 1346 Status: Addendum Vacuum Forming Machine Operator: TABITHA Armstrong (Director Of Market Intelligence) Related Notes: Original Note by TABITHA Armstrong (Director Of Market Intelligence) filed at 10/19/14 1347 CM faxed a referral to [facility] in [place] and updated info to [facility] [place]. CM faxed updated info to the [facility] [place]. Jem NOEL Travon Lara MD - 10/19/2014 1:40 PM PSTFormatting of this note might be different from t he original. Progress Notes by Travon Mitchell MD at 10/19/14 1340 Author: Travon Mitchell MD Service: Hospitalist Author Type: Physician Filed: 10/19/148 Date of Service: 10/19/141339 Status: Signed Vacuum Forming Machine Operator: Travon Mitchell MD (Physician) [facility] Service: Hospitalist Progress Note Tony Fortune 53 y.o. [id number] 438/438-1 male PER PT NONE Hospital Day: LOS: 8 days SUBJECTIVE Patient Summary: Patient is a 53 year old male with past medical history of Chronic Alcohol Abuse, Dependenc e and multiple falls who was transferred from [facility] due to a fall, seizures . CT scan of the head there showed a large acute right SDH with 2 cm midline shift. Neurosur jarad services was involved and dr. Chong performed Craniectomy and post procedure he was [...] Table: I/O last 3 completed shifts: In: 1915 [P.O.:380; I.V.:1335; IV Piggyback:200] Out: - Weight change: Hemodynamics Last 24hrs: Examination: Constitutional: Patient is drowsy but easily arousable, oriented x 1. Appears frail but not in acute distress. HEENT: Head: S/P Craniotomy. [place] at midline and temporo parietoccipital area of [...] with midline shift. S/P Craniectomy by Dr. Chong and now followed by Dr. Nj from [facility] rosurgery services. He is making [...] when stable to a SNF for rehab. finance and administration manager is working on placement which could be a challenge due to his insurance of [place] Medicaid. This may also delay his discha rge plans. Spent more than 30 minutes reviewing patient's labs, diagnostic tests, examination of patie nt, discussing plan of care with staff, also helped in coordination of care and answered sta ff's questions. Travon Mitchell MD 10/19/2014 Thalia Douglas PT - 10/19/2014 11:55 AM PST Therapy Progress Note by Thalia Simmons PT at 10/19/14 6612 Author: Thalia Simmons PT Service: (none) Author Type: Physical Therapist Filed: 10/19/14 3828 Date of Service: 10/19/14 4474 Status: Signed Vacuum Forming Machine Operator: Thalia Simmons PT (Physical Therapist) 10/19/14 1159 PT Last Visit PT Received On 10/19/14 [...] secondary to medical complications Nurse Made Aware MICHELL Valera aware Safety Devices Safety Devices in Place [...] original. Progress Notes by Crissy Maldonado at 10/19/141055 Author: Crissy Maldonado Service: (none) Author Type: Cutter In Filed: 10/19/147 Date of Service: 10/19/141055 Status: Signed Vacuum Forming Machine Operator: Crissy Maldonado I attempted to meet with the patient to discuss who his PCP is, however he was in patient c are. Crissy Maldonado-GPS Surplus Property Disposal Agent Wing Lewis Perry MD - 10/19/2014 9:01 AM PSTFormatting of this note might be different from the origi nal. Progress Notes by Wing Lewis Argueta MD at 10/19/14900 Author: Wing Lewis Argueta MD Service: (none) Author Type: Physician Filed: 10/19/14901 Date of Service: 10/19/14900 Status: Signed Vacuum Forming Machine Operator: Wing Lewis Argueta MD (Physician) Patient seen [...] Progress Notes by Rosa Lassiter RN at 10/19/14 8173 Author: Rosa Lassiter RN Service: (none) Author Type: Registered Nurse Filed: 10/19/148 Date of Service: 10/19/14445 Status: Signed Vacuum Forming Machine Operator: Rosa Lassiter RN (Registered Nurse) Patient transported [...] Ott PA-C Service: Neurosurgery Author Type: Physician Senior Oracle Dba - Ce rtified Filed: 10/18/141434 Date of Service: 10/18/141431 Status: Signed Vacuum Forming Machine Operator: Debora Ott PA-C (Physician Senior Oracle Dba - Certified) [facility] Service: Neurosurgery Progress Note Hospital Day: LOS: [...] by Maye Saleem RD, CD at 10/18/14 1150 Author: Maye Saleem RD, CD Service: (none) Author Type: Registered Dietitian Filed: 10/18/14 7058 Date of Service: 10/18/14 115 Status: Signed Vacuum Forming Machine Operator: Maye Saleem RD, BRIAN (Registered Dietitian) Nutrition Follow-Up High-risk follow-up. Assessment: Has been very lethargic. Continues to have right-sided hemiparesis. Nutritionally pertinent labs: Electrolytes, BUN, and Cr are WNL. BG has been variable in th e 100s, no insulin ordered at this time. Nutrition-focused physical findings: Skin is intact. ARCHIVES SPECIALIST continues to follow due to dysphag ia. Diet order/current intake: Puree snacks, 1-2 items per meal tray TID plus nectar thick liqu ids by spoon only. Per RN, pt had Tamazight toast and yogurt this morning and finished 95%. On IV fluids of NS at 30 mL/hr. Continues to receive folic acid and thiamine supplementatio n. Nutrition Diagnosis: Increased kcal/protein requirements related to catabolic illness and healing as evidenced b y TBI. Intervention: Continue diet per ARCHIVES SPECIALIST recommendations. 1:1 feeds with all meals. Magic Cups to be sent with meal trays. Will monitor wt trend and f/u to provide further nutrition recs based on clinical course. Goal: PO intake will be adequate to meet pt's estimated nutritional requirements. Recommendations: 1) Continue diet per ARCHIVES SPECIALIST. 2) Magic Cups with meal trays. Monitoring: Will follow up in 4 days or as indicated. Maye Saleem RD, CD, CNSC 10/18/2014 onver alem Transaction, Provider Unknown - 10/18/2014 11:07 AM PST Therapy Progress Note by Flaquito Platt PT at 10/18/14 1107 Author: Flaquito Platt PT Service: (none) Author Type: Physical Therapist Filed: 10/18/14 5390 Date of Service: 10/18/141106 Status: Signed Vacuum Forming Machine Operator: Flaquito Platt PT (Physical Therapist) 10/18/14 1107 [...] all motions distal to the hip. Pt donning hel met throughout session. Static Standing Balance Static [...] his overall lethargy. Pt likely could benefit fro m SNF at this time to focus on improving his deficits to improve overall function and mobili ty. Pt likely would have difficult tolerating 3 hours of IPR therapy services each day due t o his overwhelming fatigue. onver alem Transaction, Provider Unknown - 10/18/2014 9:13 AM PST Therapy Progress Note by DAYANARA Ross-ARCHIVES SPECIALIST at 10/18/14912 Author: DAYANARA Ross-ARCHIVES SPECIALIST Service: (none) Author Type: Speech and Language Patholo gist Filed: 10/18/14912 Date of Service: 10/18/14912 Status: Signed Vacuum Forming Machine Operator: DAYANARA Ross-ARCHIVES SPECIALIST (Speech and Language Pathologist) 10/18/14844 Swallowing Assessment Eval Swallowing Treatment Yes Initial Swallow Assessment Respiratory Status Room air Behavior/Cognition Requires cueing;Doesn't follow directions;Lethargic Dentition Adequate Vision Impaired for self-feeding Patient Positioning Upright in bed Volitional Cough Strong Consistencies Consistencies Assessed Yes Ice Chips Presentation Spoon Oral Phase Increased holding time Pharyngeal Phase No overt signs or symptoms of aspirations;Delayed swallow initiation Riner Presentation Cup Oral WFL;Increased Anterior to Posterior Transit Pharyngeal Phase Delayed swallow initiated;No overt signs or symptoms of aspiration;Decreas ed laryngeal elevation upon palpation Dysphagia Mechanically Altered Presentation Spoon Oral Phase Prolonged mastication;Increased holding time Pharyngeal Phase Cough - Delayed (cueing needed to swallow) Recommendations Liquids Consistency Recommendations Riner thick Diet Consistency Recommendation Pureed;Other (comment) (1-2 [...] monitoring;Patient/Family education;Assessment for upgr khadijah Dysphagia Goals Certified Green Building Engineer Goals Safe/efficient oral intake Pt will have safe/efficient oral intake Riner thick liquids Pt will advanced diet in 3 days;Goal progressing Short Term Goals Tolerate diet Pt will tolerate diet upgrade trials With 1:1 supervision;Goal progressing Pt will tolerate diet Puree;with 1:1 supervision;With feeding assist;Goal progressing Mere Hardy MA CFY-ARCHIVES SPECIALIST 10/18/2014 Travon Lara MD - 10/18/2014 8:36 AM PSTFormatting of this note might be different from lissett ruvalcaba. Progress Notes by Travon Mitchell MD at 10/18/14835 Author: Travon Mitchell MD Service: Hospitalist Author Type: Physician Filed: 10/18/14 1458 Date of Service: 10/18/14835 Status: Signed Vacuum Forming Machine Operator: Travon Mitchell MD (Physician) [facility] Service: Hospitalist Progress Note Tony Leeclinton 53 y.o. [id number] -[id number] male PER PT NONE Hospital Day: LOS: 7 days SUBJECTIVE Patient Summary: Patient is a 53 year old male with past medical history of Chronic Alcohol Abuse, Dependenc e and multiple falls who was transferred from [facility] due to a fall, seizures . CT scan of the head there showed a large acute right SDH with 2 cm midline shift. Neurosur jarad services was involved and dr. Chong performed Craniectomy and post procedure he was [...] with midline shift. S/P Craniectomy by Dr. Chong and current being follow by Dr. Nj [...] Author: TABITHA Sidhu Service: (none) Author Type: Director Of Market Intelligence Filed: 10/17/14 1049 Date of Service: 10/17/14 1048 Status: Signed Vacuum Forming Machine Operator: TABITHA Sidhu (Director Of Market Intelligence) Faxed updated clinical notes to [facility]. PT still not able to do a thorough eval as pt does not have his helmet yet. onver alem Transaction, Provider Unknown - 10/17/2014 10:38 AM PST Therapy Progress Note by Flaquito Platt PT at 10/17/14 1038 Author: Flaquito Platt, PT Service: (none) Author Type: Physical Therapist Filed: 10/17/14 1611 Date of Service: 10/17/14 1038 Status: Signed Vacuum Forming Machine Operator: Flaquito Platt PT (Physical Therapist) 10/17/14 1038 PT Last [...] OOB mobility assessment Maria Teresa Valdes MA, CCC-ARCHIVES SPECIALIST - 10/17/2014 8:36 AM PSTFormatting of this note might be differ ent from the original. Therapy Progress Note by Maria Teresa Lucas MS CFY-ARCHIVES SPECIALIST at 10/17/14 2936 Author: Maria Teresa Lucas MS CFY-ARCHIVES SPECIALIST Service: (none) Author Type: Speech Therapist Filed: 10/17/14835 Date of Service: 10/17/14835 Status: Signed Vacuum Forming Machine Operator: Maria Teresa Lucas MS CFY-ARCHIVES SPECIALIST (Speech and Language Pathologist) 10/17/14824 Swallowing Assessment Eval Swallowing Treatment Yes Consistencies Consistencies Assessed Yes Riner Presentation Cup Oral WFL;Increased Anterior to Posterior Transit Pharyngeal Phase No overt signs or symptoms of aspiration;Delayed swallow initiated;Decreas ed laryngeal elevation upon palpation;Spontaneous double swallow Recommendations Liquids Consistency Recommendations Riner thick;Other (comments) (by spoon) Diet Consistency Recommendation [...] was observed to be tolerating breakfast before ARCHIVES SPECIALIST walked in. Recommend cont. 1 puree snack [...] education;Assessment for upgr khadijah;Swallow strategies Dysphagia Goals Alf Goals Safe/efficient oral intake;Advanced diet Pt will have safe/efficient oral intake Riner thick liquids;Puree diet;Goal progressing Pt will advanced diet in 3 days;Goal progressing Short Term Goals Tolerate diet upgrade trials Pt will tolerate diet upgrade trials With 1:1 supervision;Goal progressing Electronically signed by Maria Teresa Lucas MA, [facility]-ARCHIVES SPECIALIST at 10/17/2014 8:36 AM Travon Orosco MD - 10/17/2014 8:19 AM PSTFormatting of this note might be different from t regina original. Progress Notes by Travon Mitchell MD at 10/17/14818 Author: Travon Mitchell MD Service: Hospitalist Author Type: Physician Filed: 10/18/14 0019 Date of Service: 10/17/14818 Status: Signed Vacuum Forming Machine Operator: Travon Mitchell MD (Physician) [facility] Service: Hospitalist Progress Note Tony Fortune 53 y.o. [id number] - male PER PT NONE Hospital Day: LOS: 7 days SUBJECTIVE Patient Summary: Patient is a 53 year old male with past medical history of Chronic Alcohol Abuse, Dependenc e and multiple falls who was transferred from [facility] due to a fall, seizures . CT scan of the head there showed a large acute right SDH with 2 cm midline shift. Neurosur jarad services was involved and dr. Chong performed Craniectomy and post procedure he was [...] Patient was tired and sleepy, he was anitha ble to provide full ROS. Staff reported [...] in acute distress. HEENT: Head: S/P Craniotomy. [place] noted at the midline and temporo parietoccipital [...] shift. He is S/P Craniectomy by Dr. Chong from Neurosurgery services. He i s stable [...] Progress Notes by Cyndy Nj MD at 10/17/14 0707 Author: Cyndy Nj MD Service: Neurosurgery Author Type: Physician Filed: 10/17/1448 Date of Service: 10/17/14744 Status: Signed Vacuum Forming Machine Operator: Cyndy Nj MD (Physician) [facility] Service: Neurosurgery Progress Note Hospital Day: LOS: [...] F (37.4 C)] 99.2 F (37.3 C) (10/17 0400) BP: (117-146)/(72-96) 121/92 mmHg (10/17 0600) Heart Rate: [83-107] 88 (10/17 0630) Resp: [15-36] 22 (10/17 629) SpO2: [91 [...] from the original. Therapy Progress Note by ANIA Mcgowan/Ibis at 10/16/14 1430 Author: CADEN Mcgowan Service: (none) Author Type: Occupational Therapist Filed: 10/16/14 1456 Date of Service: 10/16/14 1430 Status: Signed Vacuum Forming Machine Operator: CADEN Mcgowan (Occupational Therapist) 10/16/14 1430 OT Last Visit OT Received On 10/16/14 Requires OT Follow Up Unavailable (w/PT) Plan to follow up tomorrow for OT evaluation. JAVIER Mcgowan, CSRS 10/16/2014 Coral nichole, JENNIFER Arango - 10/16/2014 2:29 PM PSTFormatting of this note might be different f rom the original. Progress Notes by JENNIFER Small at 10/16/14 1429 Author: JENNIFER Small Service: Public Accountant Author Type: Public Accountant Filed: 10/16/14 1506 Date of Service: 10/16/14 1429 Status: Signed Vacuum Forming Machine Operator: JENNIFER Small (Nurse Practitioner) [facility] Service: Public Accountant Progress Note Tony Fortune 53 y.o. Date of Admission: 10/11/2014 Treatment Team: Consulting Physician: Anthony Chong MD Admitting Provider: Harika Apodaca MD CHIEF COMPLAINT: severe TBI, large right SDH with massive midline shift, IC hypertension HISTORY OF PRESENT ILLNESS The patient is a 53 y.o. male with significant past medical history of chronic alcohol abus e and multiple falls. Per ED report from [facility]: he was drinking earlier today at home and fell twice. He went to bed and then he was noted to be having what they thought was seizure activity and th ey could not wake him and called EMS. He was taken to the ED at [facility] in [place] a nd then transferred to the ED here for emergent neurosurgical evaluation for large acute rig ht SDH with 2 cm midline shift. He was admitted to the ICU post-op craniectomy and yosef drains x2. by Dr. Chong still intu bated and comatose off sedation [...] FOR BLEED; Surgeon: Anthony Chong MD; Location: [facility] IN OR; Service: Neurosurgery; Laterality: Right; Craniectomy Right 10/11/2014 Procedure: CRANIECTOMY; Surgeon: Anthony Chong MD; Location: [facility] OR; Ser vice: Neurosurgery; Laterality: Right; ALLERGIES [...] 0409 10/15/14 1506 10/15/14 0559 10/14/14 2258 10/11/147 10/11/14 1949 NA 138 -- 137 139 [...] 14 2014 5:24AM Refe rring Provider Line: [phone] ID: [id number] Xr Chest 1 View 10/14/2014 [...] upper extremities. Orth otics was consultated and [facility] came and measured him for a helmet for protection with ambulation out of bed. They should be bringing the kye today. Prevention: Seizure cont Kebrittneyra will discuss with a neurosurgeon length of [...] Progress Note by Ki Martinez PT at 10/16/14 1415 Author: Ki Martinez PT Service: (none) Author Type: Physical Therapist Filed: 10/16/14 1349 Date of Service: 10/16/14 1415 Status: Signed Vacuum Forming Machine Operator: Ki Martinez PT (Physical Therapist) 10/16/14 1415 [...] Author: TABITHA Sidhu Service: (none) Author Type: Director Of Market Intelligence Filed: 10/16/14 1307 Date of Service: 10/16/14 1300 Status: Signed Vacuum Forming Machine Operator: TABITHA Sidhu (Director Of Market Intelligence) Received t/c from Dayami at [facility] ([phone]). She is requesting PT notes. I informed her that PT is unable to assess pt until pt's helmet comes in. I informed her that we have a phy siatrist in house that likely can do a physiatry consult. She expressed concern that pt will not have any family available to do family training. I offered her pt's mothers phone jarret hartman however she wants to wait until pt has been seen by PT to go further with referral. I also informed her that I made a referral to [facility] as a back up plan if pt is not an IPR ca ndidate. I called Doroteo Chamorro Coord for [facility] IPR and she confirmed that [facility] Medicaid requires that pt go to an [place] facility for rehab. Await PT/OT eval. Speech Therapy is already involved. onver alem Transaction, Provider Unknown - 10/16/2014 12:20 PM PST Case Management by TABITHA Sidhu at 10/16/14 1220 Author: TABITHA Sidhu Service: (none) Author Type: Director Of Market Intelligence Filed: 10/16/14 1220 Date of Service: 10/16/14 1220 Status: Signed Vacuum Forming Machine Operator: TABITHA Sidhu (Director Of Market Intelligence) Placed t/c to [facility] and left message requesting bed availability and acceptance. Await return call. [facility] - Admissions- [phone] onver alem Transaction, Provider Unknown - 10/16/2014 12:01 PM PST Therapy Progress Note by Ki Martinez, PT at 10/16/14 1201 Author: Ki Martinez PT Service: (none) Author Type: Physical Therapist Filed: 10/16/14 1334 Date of Service: 10/16/14 1201 Status: Signed Vacuum Forming Machine Operator: Ki Martinez PT (Physical Therapist) 10/16/14 1201 PT Last Visit PT Received On 10/16/14 (still awaiting ortho helmet delivery) Requires PT Follow Up Yes;On hold Cyndy Warner MD - 10/16/2014 11:22 AM PST Progress Notes by Cyndy Nj MD at 10/16/14 1122 Author: Cyndy Nj MD Service: Neurosurgery Author Type: Physician Filed: 10/16/14 1124 Date of Service: 10/16/14 1122 Status: Signed Vacuum Forming Machine Operator: Cyndy Nj MD (Physician) [facility] Service: Neurosurgery Progress Note Hospital Day: LOS: [...] nystatin, nystatin, ondansetron OR ondanset gildardo, pancrelipase (Ncz-Appg-Iymq) 10,000 units, petrolatum, phosphorus OR sodium phospha [...] (37.1 C)] 98.5 F (36.9 C) (10/16 799) BP: (116-152)/(69-100) 134/92 mmHg (10/16 799) Heart [...] Oct 16 2014 6:08AM Referring Provider Line: [phone] E ID: [id number] PROBLEM LIST Principal Problem: [...] Nj MD 10/16/2014 Maria Teresa Dhillon MA, CCC-ARCHIVES SPECIALIST - 10/16/2014 9:40 AM PST Therapy Progress Note by MS CLAUDIA HayesY-ARCHIVES SPECIALIST at 10/16/14939 Author: MS KT Hayes-ARCHIVES SPECIALIST Service: (none) Author Type: Speech Therapist Filed: 10/16/14940 Date of Service: 10/16/14939 Status: Signed Vacuum Forming Machine Operator: Maria Teresa Lucas MS CFY-ARCHIVES SPECIALIST (Speech and Language Pathologist) 10/16/14920 Swallowing Assessment Eval Swallowing Treatment Yes Initial Swallow Assessment Respiratory Status Room air Behavior/Cognition Cooperative;Lethargic;Requires cueing Dentition Adequate;Poor dental/oral hygiene Vision Impaired for self-feeding Patient Positioning Upright in bed Volitional Cough Weak Volitional Swallow Delayed Consistencies Consistencies Assessed Yes Riner Presentation Spoon Oral WFL;Increased Anterior to Posterior Transit Pharyngeal Phase Delayed swallow initiated;Decreased laryngeal elevation upon palpation;Cou gh - delayed;Spontaneous double swallow Puree Presentation Spoon Oral Phase Increased oral holding time Pharyngeal Delayed Swallow;Cough - Delayed;Spontaneous double swallow;Decreased Laryngeal E levation Recommendations Liquids Consistency Recommendations Riner thick;Other (comments) (No straws ) Diet Consistency [...] education;Assessment for upgr khadijah;Swallow strategies Dysphagia Goals Alf Goals Safe/efficient oral intake;Advanced diet Pt will have safe/efficient oral intake Riner thick liquids;Puree diet;Goal progressing Pt will advanced diet in 3 days;Goal progressing Short Term Goals Tolerate diet upgrade trials Pt will tolerate diet upgrade trials With 1:1 supervision;Goal progressing onver alem Transaction, Provider Unknown - 10/16/2014 9:12 AM PST Case Management by TABITHA Sidhu at 10/16/14 0912 Author: TABITHA Sidhu Service: (none) Author Type: Director Of Market Intelligence Filed: 10/16/14 1254 Date of Service: 10/16/14911 Status: Addendum Vacuum Forming Machine Operator: TABITHA Sidhu (Director Of Market Intelligence) Related Notes: Original Note by TABITHA Sidhu (Director Of Market Intelligence) filed at 10/16/14 0914 10/16/14 0908 Discharge Planning Evaluation Admitting Diagnosis TBI Readmission No Living Arrangements Alone Support Systems Parent;Children Type of Residence Private residence (Lives on the [facility]housing project) House type (Duplex) Independent with ADL's Yes Independent with Mobility Yes Home Care Services No Caregiver after Discharge Yes Relationship to Patient Mother and children Prior functional status Independent prior to admit. Driving, made own meals, did own chores . 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 No DME used. Alcoholic. Mother states he has been drinking more and more. x 3 years. Resources Financial concerns No Transportation issues No Patient/Family concerns No Prescription Plan Yes Name of Pharmacy [facility] Anticipated Disposition Facility Type Inpatient Rehabilitation;intermediate facility Spoke with pt's mother Teressa ([phone]) and discussed discharge planning, Pt is a 53 y.o., male admitted with TBI from 2 falls rela stephenie to etoh. Per mother, pt was driving, shopping, doing own chores prior to admit. 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 Patient's PCP is: PER PT NONE Patient's insurance:[facility] Medicaid Coverage concerns: Medication coverage/concerns: Nahun'eliseo Bedside Delivery: Community resources utilized / needed: Assistance in transportation: TBD Identification of any specific education / training: Barriers to Discharge / Alternative housing needed: Anticipated DCP: TBI Rehab vs. SNF. Faxed clinical to [facility]. HAYES STEEN onver alem Transaction, Provider Unknown - 10/15/2014 5:22 PM PST Progress Notes by Maye Saleem RD, CD at 10/15/14 172 Author: Maye Saleem RD, CD Service: (none) Author Type: Registered Dietitian Filed: 10/15/14 9449 Date of Service: 10/15/141721 Status: Signed Vacuum Forming Machine Operator: Maye Saleem RD, CD (Registered Dietitian) Nutrition Follow-Up High-risk follow-up. Assessment: Extubated yesterday. Appetite is good. Nutritionally pertinent labs: BG has been variable in the 100s, Nutrition-focused physical findings: Skin is intact. ARCHIVES SPECIALIST is following due to dysphagia. Diet order/current intake: Puree snacks 1 item 3-4 x per day with nectar thick liquids by eliseo amanda only. Per RN, pt ate pureed meatloaf for lunch today. Nutrition Diagnosis: Inadequate intake related to decreased ability to consume sufficient energy/protein and inc reased kcal/protein requirements for healing as evidenced by restriction to puree snacks onl y and TBI. Intervention: Continue diet per ARCHIVES SPECIALIST. 1:1 feeding assistance with meals. Include Ensure pudding with meal trays when appropriate. Additional supplements to be provided once diet can be advanced. Goal: Pt will tolerate diet upgrade and intake will be adequate to meet pt's estimated nutritiona l requirements. Recommendations: 1) General diet with texture/liquid modifications as per ARCHIVES SPECIALIST recommendations. 2) Ensure pudding with meal trays once pt can have additional puree items. Monitoring: Will follow up in 3 days or as indicated. Maye Saleem RD, CD 10/15/2014 ang, Cyndy Saucedo MD - 10/15/2014 4:32 PM PST Progress Notes by Cyndy Nj MD at 10/15/14 1632 Author: Cyndy Nj MD Service: Neurosurgery Author Type: Physician Filed: 10/15/14 1637 Date of Service: 10/15/141631 Status: Signed Vacuum Forming Machine Operator: Cyndy Nj MD (Physician) [facility] Service: Neurosurgery Progress Note Hospital Day: LOS: [...] nystatin, nystatin, ondansetron OR ondanset gildardo, pancrelipase (Ljn-Ajgh-Fzzd) 10,000 units, petrolatum, phosphorus OR sodium phospha [...] Progress Note by Ki Martinez, PT at 10/15/14 161 Author: Ki Martinez PT Service: (none) Author Type: Physical Therapist Filed: 10/15/141932 Date of Service: 10/15/141609 Status: Signed Vacuum Forming Machine Operator: Ki Martinez PT (Physical Therapist) 10/15/14 161 [...] p with bilateral hands, but had minimal reading interventionist bilaterally. Pt was able to reach anteriorly [...] Progress Notes by JENNIFER Small at 10/15/14 0061 Author: JENNIFER Small Service: Public Accountant Author Type: Public Accountant Filed: 10/15/14 1201 Date of Service: 10/15/14 1330 Status: Signed Vacuum Forming Machine Operator: JENNIFER Small (Nurse Practitioner) [facility] Service: Public Accountant Progress Note Tony Fortune 53 y.o. Date of Admission: 10/11/2014 Treatment Team: Consulting Physician: Anthony Chong MD Admitting Provider: Harika Apodaca MD CHIEF COMPLAINT: severe TBI, large right SDH with massive midline shift, IC hypertension HISTORY OF PRESENT ILLNESS The patient is a 53 y.o. male with significant past medical history of chronic alcohol abus e and multiple falls. Per ED report from [facility]: he was drinking earlier today at home and fell twice. He went to bed and then he was noted to be having what they thought was seizure activity and th ey could not wake him and called EMS. He was taken to the ED at [facility] in [place] a nd then transferred to the ED here for emergent neurosurgical evaluation for large acute rig ht SDH with 2 cm midline shift. He was admitted to the ICU post-op craniectomy and yosef drains x2. by Dr. Chong still intu bated and comatose off sedation [...] FOR BLEED; Surgeon: Anthony Chong MD; Location: [facility] IN OR; Service: Neurosurgery; Laterality: Right; Craniectomy Right 10/11/2014 Procedure: CRANIECTOMY; Surgeon: Anthony Chong MD; Location: [facility] OR; Ser vice: Neurosurgery; Laterality: Right; ALLERGIES [...] 9.3 11.3 Recent Labs Lab 10/15/14 0559 10/14/148 10/14/149 10/14/14 0415 10/11/147 10/11/14 1949 NA 137 139 -- 136 < > [...] 14 2014 5:24AM Refe savage Provider Line: [phone] ID: [id number] Xr Chest 1 View 10/14/2014 [...] ambulation out of bed. Prevention: Seizure cont Manjulara will discuss with a neurosurgeon length of [...] Author: TABITHA Sidhu Service: (none) Author Type: Director Of Market Intelligence Filed: 10/16/14 1251 Date of Service: 10/15/14 1132 Status: Addendum Vacuum Forming Machine Operator: TABITHA Sidhu (Director Of Market Intelligence) Related Notes: Original Note by TABITHA Sidhu (Director Of Market Intelligence) filed at 10/15/14 1135 Attended morning rounds. Pt is extubated. Will need TBI rehab. Has [place] Medicaid. Referral made to [facility] ([phone]). Faxed initial referral info and updated clinical. Await return call regarding acceptance and bed availability. onver alem Transaction, Provider Unknown - 10/15/2014 11:06 AM PST Therapy Progress Note by ИВАН Poole at 10/15/14 1106 Author: ИВАН Poole Service: (none) Author Type: Massage Therapist Filed: 10/15/14 1106 Date of Service: 10/15/14 1106 Status: Signed Vacuum Forming Machine Operator: ИВАН Poole (Massage Therapist) 10/15/14 1100 MT Last Visit MT Received On 10/15/14 MT Therapy Visit On hold (due to temp >100F in last 24 hrs) Helen Campos MS [facility]-ARCHIVES SPECIALIST - 10/15/2014 8:30 AM PSTFormatting of this note might be different f rom the original. Therapy Progress Note by Helen Brian MS CFY-ARCHIVES SPECIALIST at 10/15/14829 Author: MS KT Waters-ARCHIVES SPECIALIST Service: (none) Author Type: Speech and Language Pa thologist Filed: 10/15/14907 Date of Service: 10/15/14829 Status: Signed Vacuum Forming Machine Operator: MS KT Waters-ARCHIVES SPECIALIST (Speech and Language Pathologist) 10/15/14829 Swallowing Assessment [...] cough w/ all straw and cup trials) Riner Presentation Cup;Spoon Oral Spillage Left;Increased Anterior to Posterior Transit Pharyngeal Phase Delayed swallow initiated;Decreased laryngeal elevation upon palpation;Cou gh - delayed (delayed cough in 2/6 trials by cup, no cough by spoon) Puree Presentation Spoon Oral Phase Increased oral holding time Pharyngeal Delayed Swallow;Decreased Laryngeal Elevation;Spontaneous double swallow Recommendations Liquids Consistency Recommendations Riner thick;Ice chips for oral comfort (NO STRAWS) [...] monitoring;Patient/Family education;Assessment for upgr khadijah Dysphagia Goals Alf Goals Safe/efficient oral intake;Advanced diet Pt will have safe/efficient oral intake Riner thick liquids;Puree diet;New/revised goal Pt will advanced diet in 3 days;New/revised goal Short Term Goals Tolerate diet upgrade trials Pt will tolerate diet upgrade trials With 1:1 supervision;New/revised goal onversio n Transaction, Provider Unknown - 10/14/2014 4:48 PM PSTFormatting of this note might be di fferent from the original. Progress Notes by Massiel Stovall RN at 10/14/14 1208 Author: Massiel Stovall RN Service: (none) Author Type: Registered Nurse Filed: 10/14/14 029 Date of Service: 10/14/141647 Status: Signed Vacuum Forming Machine Operator: Massiel Stovall RN (Registered Nurse) Phoned Pt [...] RN at 10/14/14 1412 Author: Maria Teresa Castillo RN Service: (none) Author Type: Registered Nurse Filed: 10/14/14 1413 Date of Service: 10/14/141411 Status: Signed Vacuum Forming Machine Operator: Maria Teresa Castillo RN (Registered Nurse) No need for PICC line at time. Time. Informed Na, INFORMATION SECURITY ANALYST to reorder if needed. Idalmis, Primar y RN to change IV today. MARIA TERESA CASTILLO RN Coral nichole, JENNIFER Arango - 10/14/2014 12:33 PM PSTFormatting of this note might be different f rom the original. Progress Notes by JENNIFER Small at 10/14/14 1233 Author: JENNIFER Small Service: Public Accountant Author Type: Public Accountant Filed: 10/14/14 1316 Date of Service: 10/14/14 1233 Status: Signed Vacuum Forming Machine Operator: JENNIFER Small (Nurse Practitioner) [facility] Service: Public Accountant Progress Note Tony Fortune 53 y.o. Date of Admission: 10/11/2014 Treatment Team: Consulting Physician: Anthony Chong MD Admitting Provider: Harika Apodaca MD CHIEF COMPLAINT: severe TBI, large right SDH with massive midline shift, IC hypertension HISTORY OF PRESENT ILLNESS The patient is a 53 y.o. male with significant past medical history of chronic alcohol abus e and multiple falls. Per ED report from [facility]: he was drinking earlier today at home and fell twice. He went to bed and then he was noted to be having what they thought was seizure activity and th ey could not wake him and called EMS. He was taken to the ED at [facility] in [place] a nd then transferred to the ED here for emergent neurosurgical evaluation for large acute rig ht SDH with 2 cm midline shift. He was admitted to the ICU post-op craniectomy and yosef drains x2. by Dr. Chong still intu bated and comatose off sedation [...] FOR BLEED; Surgeon: Anthony Chong MD; Location: [facility] IN OR; Service: Neurosurgery; Laterality: Right; Craniectomy Right 10/11/2014 Procedure: CRANIECTOMY; Surgeon: Anthony Chong MD; [facility]; Ser vice: Neurosurgery; Laterality: Right; ALLERGIES [...] heels LINES/TUBES: PIVs, daniels cath, left radial [place] DATA Recent Labs Lab 10/14/14 0415 10/13/14 0247 10/12/14 0305 WBC 9.8 7.1 9.1 HGB 9.7* 9.7* 11.1* HCT 29.4* 29.8* 33.5* PLT 124* 107* 138* NEUTOPHILPCT 81.9 78.6 79.3 MONOPCT 9.3 11.3 12.1 Recent Labs Lab 10/14/14 0415 10/13/14 1818 10/13/14 0247 10/12/14 0305 10/11/14 2237 10/11/14 1949 NA 136 -- 138 -- 134* -- [...] MD on Oct 14 2014 5:24AM Refe rrgeorges Provider Line: [phone] ID: [id number] Xr Chest 1 View 10/14/2014 [...] 10/14/14644 Date of Service: 10/14/14644 Status: Signed Vacuum Forming Machine Operator: Sophy Vargas RPH (Pharmacist) Day 2 Vanco [...] 10/13/142099 Date of Service: 10/13/142099 Status: Signed Vacuum Forming Machine Operator: Glenys Aguila RPH (Pharmacist) Clinical Pharmacy Note: Pharmacy Dosing Vancomycin; Day 1 Tony Fortune 53 y.o. male Ht Readings from Last 1 Encounters: 10/12/14 1.778 m (5' 10") Wt Readings from Last 1 Encounters: 10/13/14 98.1 kg (216 lb 4.3 oz) CREATININE: 0.47 mg/dL ABNORMAL (10/13/14 0247) Estimated creatinine clearance - 210.9 mL/min WBC Date Value Range Status 10/13/2014 7.1 3.8 - 11.0 K/uL Final Testing performed at [facility], [address] [place] [address] INDICATION: CAP Will begin Vancomycin 1750 mg (17.8 mg/kg) IV Q12H. Level due 10/15 at 0900; goal 15 to 20 mcg/ml. Pharmacy will continue to monitor for changes in renal function and adjust accordingly. Glenys Aguila RPh 10/13/2014 9:00 PM onver alem Transaction, Provider Unknown - 10/13/2014 4:37 PM PST Progress Notes by Massiel Stovall RN at 10/13/141636 Author: Massiel Stovall RN Service: (none) Author Type: Registered Nurse Filed: 10/13/141636 Date of Service: 10/13/141636 Status: Signed Vacuum Forming Machine Operator: Massiel Stovall RN (Registered Nurse) Pulmonary edema in process of resolving. tephe Anthony pierre MD - 10/13/2014 4:04 PM PSTFormatting of this note might be different from t he original. Progress Notes by Anthony Chong MD at 10/13/14 1604 Author: Anthony Chong MD Service: Neurosurgery Author Type: Physician Filed: 10/13/141606 Date of Service: 10/13/141603 Status: Signed Vacuum Forming Machine Operator: Anthony Chong MD (Physician) [facility] Service: Neurosurgery Progress Note Hospital Day: LOS: [...] nystatin, nystatin, ondansetron OR ondanset gildardo, pancrelipase (Ves-Dzmd-Hqlv) 10,000 units, petrolatum, phosphorus OR sodium phospha [...] : [28 %-60 %] 60 % (10/13 1599) Exam deferred, observed following for nursing Likely [...] extubation Disposition: icu Code Status: Full Code Anthony Chong II, MD 10/13/2014 onversion Trans action, Provider Unknown - 10/13/2014 3:30 PM PST Progress Notes by Massiel Stovall RN at 10/13/14 1530 Author: Massiel Stovall RN Service: (none) Author Type: Registered Nurse Filed: 10/13/14 1636 Date of Service: 10/13/14 1530 Status: Signed Vacuum Forming Machine Operator: Massiel Stovall RN (Registered Nurse) Pt went into flash pulmonary edema, And [facility] side. [facility] JENNIFER Arango - 10/13/2014 2:57 PM PSTFormatting of this note might be different f rom the original. Progress Notes by JENNIFER Small at 10/13/14 6407 Author: JENNIFER Small Service: Public Accountant Author Type: Public Accountant Filed: 10/13/14 1510 Date of Service: 10/13/141456 Status: Signed Vacuum Forming Machine Operator: JENNIFER Small (Nurse Practitioner) [facility] Service: Public Accountant Progress Note Tony Fortune 53 y.o. Date of Admission: 10/11/2014 Treatment Team: Consulting Physician: Anthony Chong MD Admitting Provider: Harika Apodaca MD CHIEF COMPLAINT: severe TBI, large right SDH with massive midline shift, IC hypertension HISTORY OF PRESENT ILLNESS The patient is a 53 y.o. male with significant past medical history of chronic alcohol abus e and multiple falls. Per ED report from [facility]: he was drinking earlier today at home and fell twice. He went to bed and then he was noted to be having what they thought was seizure activity and th ey could not wake him and called EMS. He was taken to the ED at [facility] in [place] a nd then transferred to the ED here for emergent neurosurgical evaluation for large acute rig ht SDH with 2 cm midline shift. He was admitted to the ICU post-op craniectomy and yosef drains x2. by Dr. Chong still intu bated and comatose off sedation [...] FOR BLEED; Surgeon: Anthony Chong MD; Location: [facility] IN OR; Service: Neurosurgery; Laterality: Right; Craniectomy Right 10/11/2014 Procedure: CRANIECTOMY; Surgeon: Anthony Chong MD; Location: [facility] OR; Ser vice: Neurosurgery; Laterality: Right; ALLERGIES [...] INFUSIONS dexmedetomidine in NS 0.4 mcg/kg/hr (10/13/14 0938) [...] heels LINES/TUBES: PIVs, daniels cath, left radial [place] DATA Recent Labs Lab 10/13/14 0247 10/12/14 [...] 10/13/14446 Date of Service: 10/13/14442 Status: Signed Vacuum Forming Machine Operator: Mikki Jules RRT (Registered Respiratory Therapist) RT [...] at 10/12/142015 Author: Harika Apodaca MD Service: Public Accountant Author Type: Public Accountant Filed: 10/12/142026 Date of Service: 10/12/142015 Status: Signed Vacuum Forming Machine Operator: Harika Apodaca MD (Physician) [facility] Service: Public Accountant Progress Note Tony Fortune 53 y.o. Date of Admission: 10/11/2014 Reason for Consultation: comanagement of severe TBI, mechanical ventilation Requesting Physician: Dr. Bhandari and Dr. Chong, Emergency Department and Neurosurgery History Obtained From: chart review, Reason patient could not give history: comatose, sev ere TBI CHIEF COMPLAINT: severe TBI, large right SDH with massive midline shift, IC hypertension HISTORY OF PRESENT ILLNESS The patient is a 53 y.o. male with significant past medical history of chronic alcohol abus e and multiple falls. Per ED report from [facility]: he was drinking earlier today and fe ll twice. He went to bed and then he was noted to be having what they thought was seizure ac tivity and they could not wake him and called EMS. He was taken to the ED at [facility] and then transferred to the ED here for emergent neurosurgical evaluation for la rge acute right SDH with 2 cm midline shift. He went to the OR from the ED after Dr. Chong discussed the findings and risks, prognosi s [...] but has cough and corneal reflexes. Dr. Chong did a decompressive hem icraniectomy with evacuation [...] FOR BLEED; Surgeon: Anthony Chong MD; Location: [facility] IN OR; Service: Neurosurgery; Laterality: Right; Craniectomy Right 10/11/2014 Procedure: CRANIECTOMY; Surgeon: Anthony Chong MD; Location: [facility] OR; Ser vice: Neurosurgery; Laterality: Right; ALLERGIES [...] 4 mm and reactive. Motor: Able to car mover RUE to command and left LE to [...] radial [place] DATA Recent Labs Lab 10/12/14 0305 10/11/14 2245 WBC 9.1 9.7 HGB 11.1* 10.9* [...] craniectomy. Remarkable exam today with the pa tient following commands moving his right thumb and [...] Case Management by TABITHA Sidhu at 10/12/14 9049 Author: TABITHA Sidhu Service: (none) Author Type: Director Of Market Intelligence Filed: 10/12/14 0145 Date of Service: 10/12/141529 Status: Signed Vacuum Forming Machine Operator: TABITHA Sidhu (Director Of Market Intelligence) Attended morning rounds. Pt is vented and admitted with TBI. No family have visited yet lissett kothari. Pt appears to be responding to some commands. He is a drinker. He reportedly has had s everal falls recently. Pt will need TBI rehab. He is from [place], [place] and [place]. If he requires LTAC h e will need to go to [facility] as [place] Medicaid is contracted with [facility] only. Will c omplete assessment when family arrives. tAnthony rodriguez MD - 10/12/2014 2:04 PM PSTFormatting of this note might be different from t he original. Progress Notes by Anthony Chong MD at 10/12/14 8614 Author: Anthony Chong MD Service: Neurosurgery Author Type: Physician Filed: 10/12/14 0025 Date of Service: 10/12/141403 Status: Signed Vacuum Forming Machine Operator: Anthony Chong MD (Physician) [facility] Service: Neurosurgery Progress Note Hospital Day: LOS: [...] management. Disposition: icu Code Status: Full Code Anthony Chong II, MD 10/12/2014 onversion Trans action, Provider Unknown - 10/11/2014 11:50 PM PST Progress Notes by Trena Gilbert at 10/11/142349 Author: Trena Gilbert Service: (none) Author Type: Filed: 10/11/142351 Date of Service: 10/11/142349 Status: Signed Vacuum Forming Machine Operator: Trena Gilbert () [facility] Nayana called with request from family. When I arrived at hospital family had already left. I will leave info for morning vault manager to visit tomorrow. Chaplain Trena Gilbert onver alem Transaction, Provider Unknown - 10/11/2014 11:02 PM PST Progress Notes by Glenys Aguila RPH at 10/11/142301 Author: Glenys Augila RPH Service: (none) Author Type: Pharmacist Filed: 10/11/142301 Date of Service: 10/11/142301 Status: Signed Vacuum Forming Machine Operator: Glenys Aguila RPH (Pharmacist) Clinical Pharmacy Note: Renal Monitoring Tony Fortune 53 y.o. male Ht Readings from Last 1 Encounters: 10/11/14 1.778 m (5' 10") Wt Readings from Last 1 Encounters: 10/11/14 89.7 kg (197 lb 12 oz) CREATININE: 0.68 mg/dL ABNORMAL (10/11/149) Estimated creatinine clearance - 140 mL/min Pharmacy dosing for renal function per Dr. West. Currently, there are no medications needing to be adjusted. Pharmacy will continue to monit or for changes in medication orders and in renal function and adjust accordingly. Glenys Aguila RPh 10/11/2014 11:02 PM docume nted in this encounter Plan of [...] | + +--------+ + + + | GREGOR JASON, | Routin | 10/11/2014 | | Results [...] | | | | | [place] [address] | | | | + + + + + + | K | 3.8Comment: Testing | 3.5 - 4.9 | EXTERNAL | | | | performed at [facility], [address] | mmol/L | LAB | | | | [address], | | | | | | [place] [address] | | | | + + + + + + | Cl | 101Comment: Testing | 99 - 109 mmol/L | EXTERNAL | | | | performed at [facility], [address] | | LAB | | | | [address], | | | | | | [place] [address] | | | | + + + + + + | CO2 | 28Comment: Testing | 23 - 32 mmol/L | EXTERNAL | | | | performed at [facility], [address] | | LAB | | | | [address], | | | | | | [place] [address] | | | | + + + + + + | Anion Gap | 9Comment: Testing | 5 - 20 mmol/L | EXTERNAL | | | | performed at [facility], [address] | | LAB | | | | [address], | | | | | | [place] [address] | | | | + + + + + + | Glucose, | 119 (H)Comment: Testing | 65 - 99 mg/dL | EXTERNAL | | | Fasting | performed at [facility], [address] | | LAB | | | | [address], | | | | | | [place] [address] | | | | + + + + + + | BUN | 8Comment: Testing | 8 - 25 mg/dL | EXTERNAL | | | | performed at [facility], [address] | | LAB | | | | [address], | | | | | | [place] [address] | | | | + + + + + + | Creatinine | 0.54 (L)Comment: Testing | 0.70 - 1.30 | EXTERNAL | | | | performed at [facility], [address] | mg/dL | LAB | | | | [address], | | | | | | [place] [address] | | | | + + + + + + | BUN/Creatin | 15Comment: Testing | | EXTERNAL | | | ine Ratio | performed at [facility], [address] | | LAB | | | | [address], | | | | | | [place] [address] | | | | + + + + + + | Calcium | 9.4Comment: NOTE NEW | 8.5 - 10.5 | EXTERNAL | | | | REFERENCE RANGETesting | mg/dL | LAB | | | | performed at [facility], [address] | | | | | [address], | | | | | | [place] [address] | | | | + + + [...] | | | | | | at [facility], [address] | | | | | | [facility], | | | | | | [place] [address] | | | | + + + [...] | | | | | [place] [address] | | | | + + + + + + | K | 3.6Comment: Testing | 3.5 - 4.9 | EXTERNAL | | | | performed at [facility], [address] | mmol/L | LAB | | | | [address], | | | | | | [place] [address] | | | | + + + + + + | Cl | 101Comment: Testing | 99 - 109 mmol/L | EXTERNAL | | | | performed at [facility], [address] | | LAB | | | | [address], | | | | | | [place] [address] | | | | + + + + + + | CO2 | 29Comment: Testing | 23 - 32 mmol/L | EXTERNAL | | | | performed at [facility], [address] | | LAB | | | | [address], | | | | | | [place] [address] | | | | + + + + + + | Anion Gap | 8Comment: Testing | 5 - 20 mmol/L | EXTERNAL | | | | performed at [facility], [address] | | LAB | | | | [address], | | | | | | [place] [address] | | | | + + + + + + | Glucose, | 118 (H)Comment: Testing | 65 - 99 mg/dL | EXTERNAL | | | Fasting | performed at [facility], [address] | | LAB | | | [address], | | | | | | [place] [address] | | | | + + + + + + | BUN | 7 (L)Comment: Testing | 8 - 25 mg/dL | EXTERNAL | | | | performed at [facility], [address] | | LAB | | | | [address], | | | | | | [place] [address] | | | | + + + + + + | Creatinine | 0.57 (L)Comment: Testing | 0.70 - 1.30 | EXTERNAL | | | | performed at [facility], [address] | mg/dL | LAB | | | | [address], | | | | | | [place] [address] | | | | + + + + + + | BUN/Creatin | 12Comment: Testing | | EXTERNAL | | | ine Ratio | performed at [facility], [address] | | LAB | | | | [address], | | | | | | [place] [address] | | | | + + + + + + | Calcium | 9.5Comment: NOTE NEW | 8.5 - 10.5 | EXTERNAL | | | | REFERENCE RANGETesting | mg/dL | LAB | | | | performed at [facility], [address] | | | | | | [address], | | | | | | [place] [address] | | | | + + + + + + | Protein, | 7.7Comment: Testing | 6.3 - 8.2 g/dL | EXTERNAL | | | Total | performed at [facility], [address] | | LAB | | | | [address], | | | | | | [place] [address] | | | | + + + + + + | Albumin | 3.5 (L)Comment: Testing | 3.6 - 5.0 g/dL | EXTERNAL | | | | performed at [facility], [address] | | LAB | | | | [address], | | | | | | [place] [address] | | | | + + + + + + | Globulin | 4.2Comment: Testing | 1.3 - 4.9 g/dL | EXTERNAL | | | | performed at [facility], [address] | | LAB | | | | [address], | | | | | | [place] [address] | | | | + + + + + + | A/G Ratio | 0.8 (L)Comment: Testing | 1.0 - 2.4 | EXTERNAL | | | | performed at [facility], [address] | | LAB | | | | [address], | | | | | | [place] [address] | | | | + + + + + + | Bilirubin | 0.6Comment: Testing | 0.1 - 1.5 mg/dL | EXTERNAL | | | Total | performed at [facility], [address] | | LAB | | | | [address], | | | | | | [place] [address] | | | | + + + + + + | ALP, | 225 (H)Comment: Testing | 35 - 115 U/L | EXTERNAL | | | External | performed at [facility], [address] | | LAB | | | | [address], | | | | | | [place] [address] | | | | + + + + + + | AST | 52 (H)Comment: Testing | 10 - 45 U/L | EXTERNAL | | | | performed at [facility], [address] | | LAB | | | | [address], | | | | | | [place] [address] | | | | + + + + + + | ALT | 46Comment: Testing | 10 - 65 U/L | EXTERNAL | | | | performed at [facility], [address] | | LAB | | | | [address], | | | | | | [place] [address] | | | | + + + [...] | | | | | | at [facility], [address] | | | | | | [address], | | | | | | [place] [address] | | | | + + + [...] EXTERNAL | | | | performed at [facility], [address] | | LAB | | | | [address], | | | | | | [place] [address] | | | | + + + + + + | RED CELL | 3.62 (L)Comment: Testing | 4.20 - 5.70 | EXTERNAL | | | COUNT | performed at [facility], [address] | M/uL | LAB | | | | [address], | | | | | | [place] [address] | | | | + + + + + + | Hgb | 12.0 (L)Comment: Testing | 13.2 - 17.0 | EXTERNAL | | | | performed at [facility], [address] | g/dL | LAB | | | | [address], | | | | | | [place] [address] | | | | + + + + + + | Hematocrit, | 36.2 (L)Comment: Testing | 39.0 - 50.0 % | EXTERNAL | | | POC | performed at [facility], [address] | | LAB | | | | [address], | | | | | | [place] [address] | | | | + + + + + + | MCV | 99.9Comment: Testing | 80.0 - 100.0 fl | EXTERNAL | | | | performed at [facility], [address] | | LAB | | | | [address], | | | | | | [place] [address] | | | | + + + + + + | MCH | 33.2Comment: Testing | 27.0 - 34.0 pg | EXTERNAL | | | | performed at [facility], [address] | | LAB | | | | [address], | | | | | | [place] [address] | | | | + + + + + + | MCHC | 33.2Comment: Testing | 32.0 - 35.5 | EXTERNAL | | | | performed at [facility], [address] | g/dL | LAB | | | | [address], | | | | | | [place] [address] | | | | + + + + + + | RDW-CV | 54.7 (H)Comment: Testing | 37 - 53 fl | EXTERNAL | | | | performed at [facility], [address] | | LAB | | | | [address], | | | | | | [place] [address] | | | | + + + + + + | Platelet | 286Comment: Testing | 150 - 400 K/uL | EXTERNAL | | | Count | performed at [facility], [address] | | LAB | | | Plasma | [address], | | | | | | [place] [address] | | | | + + + + + + | MPV | 8.2Comment: Testing | fl | EXTERNAL | | | | performed at [facility], [address] | | LAB | | | | [address], | | | | | | [place] [address] | | | | + + + + + + | Differentia | AUTOMATEDComment: | | EXTERNAL | | | l Type | Testing performed at | | LAB | | | | [facility], [address] | | | | | | [place] | | | | | | [address] | | | | + + + + + + | % Segmented | 72.2Comment: Testing | % | EXTERNAL | | | | performed at [facility], [address] | | LAB | | | Neutrophils | [address], | | | | | | [place] [address] | | | | + + + + + + | % | 16.2Comment: Testing | % | EXTERNAL | | | Lymphocytes | performed at [facility], [address] | | LAB | | | | [address], | | | | | | [place] [address] | | | | + + + + + + | % Monocytes | 7.9Comment: Testing | % | EXTERNAL | | | | performed at [facility], [address] | | LAB | | | | [address], | | | | | | [place] [address] | | | | + + + + + + | % | 3.0Comment: Testing | % | EXTERNAL | | | Eosinophils | performed at [facility], [address] | | LAB | | | | [address], | | | | | | [place] [address] | | | | + + + + + + | % Basophils | 0.7Comment: Testing | % | EXTERNAL | | | | performed at [facility], [address] | | LAB | | | [address], | | | | | | [place] [address] | | | | + + + + + + | Absolute | 5.7Comment: Testing | 1.9 - 7.4 K/uL | EXTERNAL | | | Segmented | performed at [facility], [address] | | LAB | | | Neutrophils | [address], | | | | | | [place] [address] | | | | + + + + + + | Absolute | 1.3Comment: Testing | 1.0 - 3.9 K/uL | EXTERNAL | | | Lymphocytes | performed at [facility], [address] | | LAB | | | | [address], | | | | | | [place] [address] | | | | + + + + + + | Absolute | 0.6Comment: Testing | 0 - 0.8 K/uL | EXTERNAL | | | Monocytes | performed at [facility], [address] | | LAB | | | | [address], | | | | | | [place] [address] | | | | + + + + + + | Absolute | 0.2Comment: Testing | 0 - 0.5 K/uL | EXTERNAL | | | Eosinophils | performed at [facility], [address] | | LAB | | | | [address], | | | | | | [place] [address] | | | | + + + + + + | Absolute | 0.1Comment: Testing | 0 - 0.1 K/uL | EXTERNAL | | | Basophils | performed at [facility], [address] | | LAB | | | | [address], | | | | | | [place] [address] | | | | + + + [...] EXTERNAL | | | | performed at [facility];[address] | | LAB | | | | [address];[place] | | | | | | [address] | | | | + + + [...] | | | | | [place] [address] | | | | + + + + + + | K | 3.5Comment: Testing | 3.5 - 4.9 | EXTERNAL | | | | performed at [facility], [address] | mmol/L | LAB | | | | [address], | | | | | | [place] [address] | | | | + + + + + + | Cl | 100Comment: Testing | 99 - 109 mmol/L | EXTERNAL | | | | performed at [facility], [address] | | LAB | | | | [address], | | | | | | [place] [address] | | | | + + + + + + | CO2 | 26Comment: Testing | 23 - 32 mmol/L | EXTERNAL | | | | performed at [facility], [address] | | LAB | | | | [address], | | | | | | [place] [address] | | | | + + + + + + | Anion Gap | 11Comment: Testing | 5 - 20 mmol/L | EXTERNAL | | | | performed at [facility], [address] | | LAB | | | | [address], | | | | | | [place] [address] | | | | + + + + + + | Glucose, | 112 (H)Comment: Testing | 65 - 99 mg/dL | EXTERNAL | | | Fasting | performed at [facility], [address] | | LAB | | | | [address], | | | | | | [place] [address] | | | | + + + + + + | BUN | 8Comment: Testing | 8 - 25 mg/dL | EXTERNAL | | | | performed at [facility], [address] | | LAB | | | | [address], | | | | | | [place] [address] | | | | + + + + + + | Creatinine | 0.65 (L)Comment: Testing | 0.70 - 1.30 | EXTERNAL | | | | performed at [facility], [address] | mg/dL | LAB | | | | [address], | | | | | | [place] [address] | | | | + + + + + + | BUN/Creatin | 12Comment: Testing | | EXTERNAL | | | ine Ratio | performed at [facility], [address] | | LAB | | | | [address], | | | | | | [place] [address] | | | | + + + + + + | Calcium | 9.2Comment: NOTE NEW | 8.5 - 10.5 | EXTERNAL | | | | REFERENCE RANGETesting | mg/dL | LAB | | | | performed at [facility], [address] | | | | | | [address], | | | | | | [place] [address] | | | | + + + [...] | | | | | | at [facility], [address] | | | | | | [facility], | | | | | | [place] [address] | | | | + + + [...] EXTERNAL | | | | performed at [facility], [address] | mmol/L | LAB | | | | [address], | | | | | | [place] [address] | | | | + + + + + + | K | 3.6Comment: Testing | 3.5 - 4.9 | EXTERNAL | | | | performed at [facility], [address] | mmol/L | LAB | | | | [address], | | | | | | [place], [place] [address] | | | | + + + + + + | Cl | 100Comment: Testing | 99 - 109 mmol/L | EXTERNAL | | | | performed at [facility], [address] | | LAB | | | | [address], | | | | | | [place], [place] [address] | | | | + + + + + + | CO2 | 27Comment: Testing | 23 - 32 mmol/L | EXTERNAL | | | | performed at [facility], [address] | | LAB | | | | [address], | | | | | | [place] [address] | | | | + + + + + + | Anion Gap | 10Comment: Testing | 5 - 20 mmol/L | EXTERNAL | | | | performed at [facility], [address] | | LAB | | | | [address], | | | | | | [place] [address] | | | | + + + + + + | Glucose, | 119 (H)Comment: Testing | 65 - 99 mg/dL | EXTERNAL | | | Fasting | performed at [facility], [address] | | LAB | | | | [address], | | | | | | [place] [address] | | | | + + + + + + | BUN | 11Comment: Testing | 8 - 25 mg/dL | EXTERNAL | | | | performed at [facility], [address] | | LAB | | | [address], | | | | | | [place] [address] | | | | + + + + + + | Creatinine | 0.64 (L)Comment: Testing | 0.70 - 1.30 | EXTERNAL | | | | performed at [facility], [address] | mg/dL | LAB | | | | [address], | | | | | | [place] [address] | | | | + + + + + + | BUN/Creatin | 17Comment: Testing | | EXTERNAL | | | ine Ratio | performed at [facility], [address] | | LAB | | | | [address], | | | | | | [place] [address] | | | | + + + + + + | Calcium | 9.4Comment: NOTE NEW | 8.5 - 10.5 | EXTERNAL | | | | REFERENCE RANGETesting | mg/dL | LAB | | | | performed at [facility], [address] | | | | | | [address], | | | | | | [place] [address] | | | | + + + [...] | | | | | | at [facility], [address] | | | | | | [address], | | | | | | [place] [address] | | | | + + + [...] | | | | | [place] [address] | | | | + + + + + + | RED CELL | 3.83 (L)Comment: Testing | 4.20 - 5.70 | EXTERNAL | | | COUNT | performed at [facility], [address] | M/uL | LAB | | | | [address], | | | | | | [place] [address] | | | | + + + + + + | Hgb | 12.8 (L)Comment: Testing | 13.2 - 17.0 | EXTERNAL | | | | performed at [facility], [address] | g/dL | LAB | | | | [address], | | | | | | [place] [address] | | | | + + + + + + | Hematocrit, | 38.0 (L)Comment: Testing | 39.0 - 50.0 % | EXTERNAL | | | POC | performed at [facility], [address] | | LAB | | | | [address], | | | | | | [place] [address] | | | | + + + + + + | MCV | 99.2Comment: Testing | 80.0 - 100.0 fl | EXTERNAL | | | | performed at [facility], [address] | | LAB | | | | [address], | | | | | | [place] [address] | | | | + + + + + + | MCH | 33.3Comment: Testing | 27.0 - 34.0 pg | EXTERNAL | | | | performed at [facility], [address] | | LAB | | | | [address], | | | | | | [place] [address] | | | | + + + + + + | MCHC | 33.6Comment: Testing | 32.0 - 35.5 | EXTERNAL | | | | performed at [facility], [address] | g/dL | LAB | | | | [address], | | | | | | [place] [address] | | | | + + + + + + | RDW-CV | 56.9 (H)Comment: Testing | 37 - 53 fl | EXTERNAL | | | | performed at [facility], [address] | | LAB | | | | [address], | | | | | | [place] [address] | | | | + + + + + + | Platelet | 327Comment: Testing | 150 - 400 K/uL | EXTERNAL | | | Count | performed at [facility], [address] | | LAB | | | Plasma | [address], | | | | | | [place] [address] | | | | + + + + + + | MPV | 8.3Comment: Testing | fl | EXTERNAL | | | | performed at [facility], [address] | | LAB | | | | [address], | | | | | | [place] [address] | | | | + + + + + + | Differentia | AUTOMATEDComment: | | EXTERNAL | | | l Type | Testing performed at | | LAB | | | | [facility], [address] | | | | | | [place] | | | | | | [address] | | | | + + + + + + | % Segmented | 72.8Comment: Testing | % | EXTERNAL | | | | performed at [facility], [address] | | LAB | | | Neutrophils | [address], | | | | | | [place] [address] | | | | + + + + + + | % | 16.9Comment: Testing | % | EXTERNAL | | | Lymphocytes | performed at [facility], [address] | | LAB | | | | [address], | | | | | | [place] [address] | | | | + + + + + + | % Monocytes | 7.6Comment: Testing | % | EXTERNAL | | | | performed at [facility], [address] | | LAB | | | | [address], | | | | | | [place] [address] | | | | + + + + + + | % | 2.0Comment: Testing | % | EXTERNAL | | | Eosinophils | performed at [facility], [address] | | LAB | | | | [address], | | | | | | [place] [address] | | | | + + + + + + | % Basophils | 0.7Comment: Testing | % | EXTERNAL | | | | performed at [facility], [address] | | LAB | | | | [address], | | | | | | [place] [address] | | | | + + + + + + | Absolute | 6.9Comment: Testing | 1.9 - 7.4 K/uL | EXTERNAL | | | Segmented | performed at [facility], [address] | | LAB | | | Neutrophils | [address], | | | | | | [place] [address] | | | | + + + + + + | Absolute | 1.6Comment: Testing | 1.0 - 3.9 K/uL | EXTERNAL | | | Lymphocytes | performed at [facility], [address] | | LAB | | | | [address], | | | | | | [place] [address] | | | | + + + + + + | Absolute | 0.7Comment: Testing | 0 - 0.8 K/uL | EXTERNAL | | | Monocytes | performed at [facility], [address] | | LAB | | | | [address], | | | | | | [place] [address] | | | | + + + + + + | Absolute | 0.2Comment: Testing | 0 - 0.5 K/uL | EXTERNAL | | | Eosinophils | performed at [facility], [address] | | LAB | | | | [address], | | | | | | [place] [address] | | | | + + + + + + | Absolute | 0.1Comment: Testing | 0 - 0.1 K/uL | EXTERNAL | | | Basophils | performed at [facility], [address] | | LAB | | | | [address], | | | | | | [place] [address] | | | | + + + [...] EXTERNAL | | | | performed at [facility];[address] | | LAB | | | | [address];[place], [place] | | | | | | [address] | | | | + + + [...] | | | | | [place] [address] | | | | + + + + + + | K | 3.8Comment: Testing | 3.5 - 4.9 | EXTERNAL | | | | performed at [facility], [address] | mmol/L | LAB | | | | [address], | | | | | | [place] [address] | | | | + + + + + + | Cl | 98 (L)Comment: Testing | 99 - 109 mmol/L | EXTERNAL | | | | performed at [facility], [address] | | LAB | | | | [address], | | | | | | [place] [address] | | | | + + + + + + | CO2 | 26Comment: Testing | 23 - 32 mmol/L | EXTERNAL | | | | performed at [facility], [address] | | LAB | | | | [address], | | | | | | [place] [address] | | | | + + + + + + | Anion Gap | 11Comment: Testing | 5 - 20 mmol/L | EXTERNAL | | | | performed at [facility], [address] | | LAB | | | | [address], | | | | | | [place] [address] | | | | + + + + + + | Glucose, | 121 (H)Comment: Testing | 65 - 99 mg/dL | EXTERNAL | | | Fasting | performed at [facility], [address] | | LAB | | | | [address], | | | | | | [place] [address] | | | | + + + + + + | BUN | 10Comment: Testing | 8 - 25 mg/dL | EXTERNAL | | | | performed at [facility], [address] | | LAB | | | | [address], | | | | | | [place] [address] | | | | + + + + + + | Creatinine | 0.60 (L)Comment: Testing | 0.70 - 1.30 | EXTERNAL | | | | performed at [facility], [address] | mg/dL | LAB | | | | [address], | | | | | | [place] [address] | | | | + + + + + + | BUN/Creatin | 17Comment: Testing | | EXTERNAL | | | ine Ratio | performed at [facility], [address] | | LAB | | | | [address], | | | | | | [place] [address] | | | | + + + + + + | Calcium | 9.3Comment: NOTE NEW | 8.5 - 10.5 | EXTERNAL | | | | REFERENCE RANGETesting | mg/dL | LAB | | | | performed at [facility], [address] | | | | | | [address], | | | | | | [place] [address] | | | | + + + [...] | | | | | | at [facility], [address] | | | | | | [address], | | | | | | [place] [address] | | | | + + + [...] EXTERNAL | | | | performed at [facility], [address] | | LAB | | | | [address], | | | | | | [place] [address] | | | | + + + + + + | RED CELL | 3.77 (L)Comment: Testing | 4.20 - 5.70 | EXTERNAL | | | COUNT | performed at [facility], [address] | M/uL | LAB | | | | [address], | | | | | | [place] [address] | | | | + + + + + + | Hgb | 12.2 (L)Comment: Testing | 13.2 - 17.0 | EXTERNAL | | | | performed at [facility], [address] | g/dL | LAB | | | | [address], | | | | | | [place] [address] | | | | + + + + + + | Hematocrit, | 37.3 (L)Comment: Testing | 39.0 - 50.0 % | EXTERNAL | | | POC | performed at [facility], [address] | | LAB | | | | [address], | | | | | | [place] [address] | | | | + + + + + + | MCV | 98.9Comment: Testing | 80.0 - 100.0 fl | EXTERNAL | | | | performed at [facility], [address] | | LAB | | | | [address], | | | | | | [place] [address] | | | | + + + + + + | MCH | 32.3Comment: Testing | 27.0 - 34.0 pg | EXTERNAL | | | | performed at [facility], [address] | | LAB | | | | [address], | | | | | | [place] [address] | | | | + + + + + + | MCHC | 32.6Comment: Testing | 32.0 - 35.5 | EXTERNAL | | | | performed at [facility], [address] | g/dL | LAB | | | | [address], | | | | | | [place] [address] | | | | + + + + + + | RDW-CV | 58.6 (H)Comment: Testing | 37 - 53 fl | EXTERNAL | | | | performed at [facility], [address] | | LAB | | | | [address], | | | | | | [place] [address] | | | | + + + + + + | Platelet | 274Comment: Testing | 150 - 400 K/uL | EXTERNAL | | | Count | performed at [facility], [address] | | LAB | | | Plasma | [address], | | | | | | [place] [address] | | | | + + + + + + | MPV | 8.1Comment: Testing | fl | EXTERNAL | | | | performed at [facility], [address] | | LAB | | | | [address], | | | | | | [place] [address] | | | | + + + + + + | Differentia | AUTOMATEDComment: | | EXTERNAL | | | l Type | Testing performed at | | LAB | | | | [facility], [address] | | | | | | [place] | | | | | | [address] | | | | + + + + + + | % Segmented | 71.7Comment: Testing | % | EXTERNAL | | | | performed at [facility], [address] | | LAB | | | Neutrophils | [address], | | | | | | [place] [address] | | | | + + + + + + | % | 15.9Comment: Testing | % | EXTERNAL | | | Lymphocytes | performed at [facility], [address] | | LAB | | | | [address], | | | | | | [place] [address] | | | | + + + + + + | % Monocytes | 9.3Comment: Testing | % | EXTERNAL | | | | performed at [facility], [address] | | LAB | | | | [address], | | | | | | [place] [address] | | | | + + + + + + | % | 2.4Comment: Testing | % | EXTERNAL | | | Eosinophils | performed at [facility], [address] | | LAB | | | | [address], | | | | | | [place] [address] | | | | + + + + + + | % Basophils | 0.7Comment: Testing | % | EXTERNAL | | | | performed at [facility], [address] | | LAB | | | | [address], | | | | | | [place] [address] | | | | + + + + + + | Absolute | 6.7Comment: Testing | 1.9 - 7.4 K/uL | EXTERNAL | | | Segmented | performed at [facility], [address] | | LAB | | | Neutrophils | [address], | | | | | | [place] [address] | | | | + + + + + + | Absolute | 1.5Comment: Testing | 1.0 - 3.9 K/uL | EXTERNAL | | | Lymphocytes | performed at [facility], [address] | | LAB | | | | [address], | | | | | | [place] [address] | | | | + + + + + + | Absolute | 0.9 (H)Comment: Testing | 0 - 0.8 K/uL | EXTERNAL | | | Monocytes | performed at [facility], [address] | | LAB | | | | [address], | | | | | | [place] [address] | | | | + + + + + + | Absolute | 0.2Comment: Testing | 0 - 0.5 K/uL | EXTERNAL | | | Eosinophils | performed at [facility], [address] | | LAB | | | | [address], | | | | | | [place] [address] | | | | + + + + + + | Absolute | 0.1Comment: Testing | 0 - 0.1 K/uL | EXTERNAL | | | Basophils | performed at [facility], [address] | | LAB | | | | [address], | | | | | | [place] [address] | | | | + + + [...] EXTERNAL | | | | performed at [facility] | | LAB | | | | [address];[place] | | | | | | [address] | | | | + + + [...] EXTERNAL | | | | performed at [facility];[address] | mmol/L | LAB | | | | [address];[place] | | | | | | [address] | | | | + + + + + + | K | 4.0Comment: Testing | 3.5 - 4.9 | EXTERNAL | | | | performed at [facility];[address] | mmol/L | LAB | | | | [address];[place] | | | | | | [address] | | | | + + + + + + | Cl | 102Comment: Testing | 99 - 109 mmol/L | EXTERNAL | | | | performed at [facility];[address] | | LAB | | | | [address];[place] | | | | | | [address] | | | | + + + + + + | CO2 | 27Comment: Testing | 23 - 32 mmol/L | EXTERNAL | | | | performed at [facility];[address] | | LAB | | | | [address];[place] | | | | | | [address] | | | | + + + + + + | Anion Gap | 10Comment: Testing | 5 - 20 mmol/L | EXTERNAL | | | | performed at [facility];[address] | | LAB | | | | [address];[place] | | | | | | [address] | | | | + + + + + + | Glucose, | 128 (H)Comment: Testing | 65 - 99 mg/dL | EXTERNAL | | | Fasting | performed at [facility];[address] | | LAB | | | | [address];[place] | | | | | | [address] | | | | + + + + + + | BUN | 9Comment: Testing | 8 - 25 mg/dL | EXTERNAL | | | | performed at [facility];[address] | | LAB | | | | [address];[place] | | | | | | [address] | | | | + + + + + + | Creatinine | 0.78Comment: Testing | 0.70 - 1.30 | EXTERNAL | | | | performed at [facility];[address] | mg/dL | LAB | | | | [address];[place] | | | | | | [address] | | | | + + + + + + | BUN/Creatin | 12Comment: Testing | | EXTERNAL | | | ine Ratio | performed at [facility];[address] | | LAB | | | | [address];[place] | | | | | | [address] | | | | + + + + + + | Calcium | 8.4 (L)Comment: NOTE NEW | 8.5 - 10.5 | EXTERNAL | | | | REFERENCE RANGETesting | mg/dL | LAB | | | | performed at [facility];[address] | | | | | | [address];[place] | | | | | | [address] | | | | + + + [...] | | | | | | at [facility];[address] [place] [address] | | | | | | [facility];[place] [address] | | | | + + + [...] | Unchanged head CT compared to 10/16/2014. PAIGE | | | Electronically signed by Mariya Calzada MD on Oct 17 2014 7:38AM | | | Referring Provider Line: [phone] ID: [id number] | | + + + [...] 2014 | | 7:38AM Referring Provider Line: [phone] ID: [id number] | | | |IMPRESSION: | |Unchanged head CT compared to 10/16/2014. | | | |RADIA | | | | Electronically signed by Mariya Calzada MD on Oct 17 2014 7:38AM Referring Provider Dian e: [phone] ID: [id number] | + + Potassium (10/16/2014 5:47 PM PST) + + + + + + | Component | Value | Ref Range | Performed | Pathologist | | | | | At | Signature | + + + + + + | K | 4.2Comment: Testing | 3.5 - 4.9 | EXTERNAL | | | | performed at [facility];[address] | mmol/L | LAB | | | | [address];[place], [place] | | | | | | [address] | | | | + + + [...] 6:08AM | | | Referring Provider Line: [phone] ID: [id number] | | + + + [...] 2014 | | 6:08AM Referring Provider Line: [phone] ID: [id number] | | | |IMPRESSION: | | | |Right-sided drain has been removed. No evidence of interval hemorrhage or worsening mass ef fect. Hypodense subdural collection over the right frontal convexity has increased in size. Serial followup suggested. No other significant interval change. | | | | Electronically signed by Jimbo Mckeon MD on Oct 16 2014 6:08AM Referring Provider Line: [phone] ID: [id number] | + + External Lab: CBC (10/16/2014 4:09 AM PST) + + + + + + | Component | Value | Ref Range | Performed | Pathologist | | | | | At | Signature | + + + + + + | WBC | 8.7Comment: Testing | 3.8 - 11.0 K/uL | EXTERNAL | | | | performed at [facility], [address] | | LAB | | | | [address], | | | | | | [place] [address] | | | | + + + + + + | RED CELL | 3.62 (L)Comment: Testing | 4.20 - 5.70 | EXTERNAL | | | COUNT | performed at [facility], [address] | M/uL | LAB | | | | [address], | | | | | | [place] [address] | | | | + + + + + + | Hgb | 11.9 (L)Comment: Testing | 13.2 - 17.0 | EXTERNAL | | | | performed at [facility], [address] | g/dL | LAB | | | | [address], | | | | | | [place] [address] | | | | + + + + + + | Hematocrit, | 36.0 (L)Comment: Testing | 39.0 - 50.0 % | EXTERNAL | | | POC | performed at [facility], [address] | | LAB | | | | [address], | | | | | | [place] [address] | | | | + + + + + + | MCV | 99.4Comment: Testing | 80.0 - 100.0 fl | EXTERNAL | | | | performed at [facility], [address] | | LAB | | | | [address], | | | | | | [place] [address] | | | | + + + + + + | MCH | 32.9Comment: Testing | 27.0 - 34.0 pg | EXTERNAL | | | | performed at [facility], [address] | | LAB | | | | [address], | | | | | | [place] [address] | | | | + + + + + + | MCHC | 33.0Comment: Testing | 32.0 - 35.5 | EXTERNAL | | | | performed at [facility], [address] | g/dL | LAB | | | | [address], | | | | | | [place] [address] | | | | + + + + + + | RDW-CV | 59.5 (H)Comment: Testing | 37 - 53 fl | EXTERNAL | | | | performed at [facility], [address] | | LAB | | | | [address], | | | | | | [place] [address] | | | | + + + + + + | Platelet | 201Comment: Testing | 150 - 400 K/uL | EXTERNAL | | | Count | performed at [facility], [address] | | LAB | | | Plasma | [address], | | | | | | [place] [address] | | | | + + + + + + | MPV | 8.2Comment: Testing | fl | EXTERNAL | | | | performed at [facility], [address] | | LAB | | | | [address], | | | | | | [place] [address] | | | | + + + + + + | Differentia | AUTOMATEDComment: | | EXTERNAL | | | l Type | Testing performed at | | LAB | | | | [facility], [address] | | | | | | [place] | | | | | | [address] | | | | + + + + + + | % Segmented | 77.8Comment: Testing | % | EXTERNAL | | | | performed at [facility], [address] | | LAB | | | Neutrophils | [address], | | | | | | [place] [address] | | | | + + + + + + | % | 9.6Comment: Testing | % | EXTERNAL | | | Lymphocytes | performed at [facility], [address] | | LAB | | | | [address], | | | | | | [place] [address] | | | | + + + + + + | % Monocytes | 10.5Comment: Testing | % | EXTERNAL | | | | performed at [facility], [address] | | LAB | | | | [address], | | | | | | [place] [address] | | | | + + + + + + | % | 1.6Comment: Testing | % | EXTERNAL | | | Eosinophils | performed at [facility], [address] | | LAB | | | | [address], | | | | | | [place] [address] | | | | + + + + + + | % Basophils | 0.5Comment: Testing | % | EXTERNAL | | | | performed at [facility], [address] | | LAB | | | | [address], | | | | | | [place] [address] | | | | + + + + + + | Absolute | 6.8Comment: Testing | 1.9 - 7.4 K/uL | EXTERNAL | | | Segmented | performed at [facility], [address] | | LAB | | | Neutrophils | [address], | | | | | | [place] [address] | | | | + + + + + + | Absolute | 0.8 (L)Comment: Testing | 1.0 - 3.9 K/uL | EXTERNAL | | | Lymphocytes | performed at [facility], [address] | | LAB | | | | [address], | | | | | | [place] [address] | | | | + + + + + + | Absolute | 0.9 (H)Comment: Testing | 0 - 0.8 K/uL | EXTERNAL | | | Monocytes | performed at [facility], [address] | | LAB | | | | [address], | | | | | | [place] [address] | | | | + + + + + + | Absolute | 0.1Comment: Testing | 0 - 0.5 K/uL | EXTERNAL | | | Eosinophils | performed at [facility], [address] | | LAB | | | | [address], | | | | | | [place] [address] | | | | + + + + + + | Absolute | 0.0Comment: Testing | 0 - 0.1 K/uL | EXTERNAL | | | Basophils | performed at [facility], [address] | | LAB | | | | [address], | | | | | | [place] [address] | | | | + + + [...] | | | | | [place] [address] | | | | + + + + + + | K | 3.4 (L)Comment: Testing | 3.5 - 4.9 | EXTERNAL | | | | performed at [facility], [address] | mmol/L | LAB | | | | [address], | | | | | | [place] [address] | | | | + + + + + + | Cl | 102Comment: Testing | 99 - 109 mmol/L | EXTERNAL | | | | performed at [facility], [address] | | LAB | | | | [address], | | | | | | [place] [address] | | | | + + + + + + | CO2 | 27Comment: Testing | 23 - 32 mmol/L | EXTERNAL | | | | performed at [facility], [address] | | LAB | | | | [address], | | | | | | [place] [address] | | | | + + + + + + | Anion Gap | 12Comment: Testing | 5 - 20 mmol/L | EXTERNAL | | | | performed at [facility], [address] | | LAB | | | | [address], | | | | | | [place] [address] | | | | + + + [...] | | | | | [place] [address] | | | | + + + + + + | Creatinine | 0.44 (L)Comment: Testing | 0.70 - 1.30 | EXTERNAL | | | | performed at [facility], [address] | mg/dL | LAB | | | | [address], | | | | | | [place] [address] | | | | + + + + + + | BUN/Creatin | 18Comment: Testing | | EXTERNAL | | | ine Ratio | performed at [facility], [address] | | LAB | | | | [address], | | | | | | [place] [address] | | | | + + + + + + | Calcium | 9.1Comment: NOTE NEW | 8.5 - 10.5 | EXTERNAL | | | | REFERENCE RANGETesting | mg/dL | LAB | | | | performed at [facility], [address] | | | | | | [address], | | | | | | [place] [address] | | | | + + + [...] | | | | | | at [facility], [address] | | | | | | [address], | | | | | | [place] [address] | | | | + + + [...] LAB | | | | performed at [facility];[address] | | | | | | [address];[place], [place] | | | | | | [address] | | | | + + + [...] EXTERNAL | | | | performed at [facility], [address] | | LAB | | | | [address], | | | | | | [place] [address] | | | | + + + + + + | RED CELL | 3.36 (L)Comment: Testing | 4.20 - 5.70 | EXTERNAL | | | COUNT | performed at [facility], [address] | M/uL | LAB | | | | [address], | | | | | | [place] [address] | | | | + + + + + + | Hgb | 11.1 (L)Comment: Testing | 13.2 - 17.0 | EXTERNAL | | | | performed at [facility], [address] | g/dL | LAB | | | | [address], | | | | | | [place] [address] | | | | + + + + + + | Hematocrit, | 34.0 (L)Comment: Testing | 39.0 - 50.0 % | EXTERNAL | | | POC | performed at [facility], [address] | | LAB | | | | [address], | | | | | | [place] [address] | | | | + + + + + + | MCV | 101.0 (H)Comment: | 80.0 - 100.0 fl | EXTERNAL | | | | Testing performed at | | LAB | | | | [facility], [address] | | | | | | [place] | | | | | | [address] | | | | + + + + + + | MCH | 33.1Comment: Testing | 27.0 - 34.0 pg | EXTERNAL | | | | performed at [facility], [address] | | LAB | | | | [address], | | | | | | [place] [address] | | | | + + + + + + | MCHC | 32.7Comment: Testing | 32.0 - 35.5 | EXTERNAL | | | | performed at [facility], [address] | g/dL | LAB | | | | [address], | | | | | | [place] [address] | | | | + + + + + + | RDW-CV | 59.1 (H)Comment: Testing | 37 - 53 fl | EXTERNAL | | | | performed at [facility], [address] | | LAB | | | | [address], | | | | | | [place] [address] | | | | + + + + + + | Platelet | 162Comment: Testing | 150 - 400 K/uL | EXTERNAL | | | Count | performed at [facility], [address] | | LAB | | | Plasma | [address], | | | | | | [place] [address] | | | | + + + + + + | MPV | 8.6Comment: Testing | fl | EXTERNAL | | | | performed at [facility], [address] | | LAB | | | | [address], | | | | | | [place] [address] | | | | + + + + + + | Differentia | AUTOMATEDComment: | | EXTERNAL | | | l Type | Testing performed at | | LAB | | | | [facility], [address] | | | | | | [place] | | | | | | [address] | | | | + + + + + + | % Segmented | 72.7Comment: Testing | % | EXTERNAL | | | | performed at [facility], [address] | | LAB | | | Neutrophils | [address], | | | | | | [place] [address] | | | | + + + + + + | % | 12.1Comment: Testing | % | EXTERNAL | | | Lymphocytes | performed at [facility], [address] | | LAB | | | [address], | | | | | | [place] [address] | | | | + + + + + + | % Monocytes | 13.0Comment: Testing | % | EXTERNAL | | | | performed at [facility], [address] | | LAB | | | | [address], | | | | | | [place] [address] | | | | + + + + + + | % | 1.7Comment: Testing | % | EXTERNAL | | | Eosinophils | performed at [facility], [address] | | LAB | | | | [address], | | | | | | [place] [address] | | | | + + + + + + | % Basophils | 0.5Comment: Testing | % | EXTERNAL | | | | performed at [facility], [address] | | LAB | | | | [address], | | | | | | [place], [place] [address] | | | | + + + + + + | Absolute | 5.9Comment: Testing | 1.9 - 7.4 K/uL | EXTERNAL | | | Segmented | performed at [facility], [address] | | LAB | | | Neutrophils | [address], | | | | | | [place] [address] | | | | + + + + + + | Absolute | 1.0Comment: Testing | 1.0 - 3.9 K/uL | EXTERNAL | | | Lymphocytes | performed at [facility], [address] | | LAB | | | | [address], | | | | | | [place] [address] | | | | + + + + + + | Absolute | 1.1 (H)Comment: Testing | 0 - 0.8 K/uL | EXTERNAL | | | Monocytes | performed at [facility], [address] | | LAB | | | | [address], | | | | | | [place] [address] | | | | + + + + + + | Absolute | 0.1Comment: Testing | 0 - 0.5 K/uL | EXTERNAL | | | Eosinophils | performed at [facility], [address] | | LAB | | | | [address], | | | | | | [place] [address] | | | | + + + + + + | Absolute | 0.0Comment: Testing | 0 - 0.1 K/uL | EXTERNAL | | | Basophils | performed at [facility], [address] | | LAB | | | | [address], | | | | | | [place] [address] | | | | + + + [...] | | | | | [place] [address] | | | | + + + + + + | K | 3.8Comment: Testing | 3.5 - 4.9 | EXTERNAL | | | | performed at [facility], [address] | mmol/L | LAB | | | | [address], | | | | | | [place] [address] | | | | + + + + + + | Cl | 105Comment: Testing | 99 - 109 mmol/L | EXTERNAL | | | | performed at [facility], [address] | | LAB | | | | [address], | | | | | | [place] [address] | | | | + + + + + + | CO2 | 28Comment: Testing | 23 - 32 mmol/L | EXTERNAL | | | | performed at [facility], [address] | | LAB | | | | [address], | | | | | | [place] [address] | | | | + + + + + + | Anion Gap | 8Comment: Testing | 5 - 20 mmol/L | EXTERNAL | | | | performed at [facility], [address] | | LAB | | | | [address], | | | | | | [place] [address] | | | | + + + + + + | Glucose, | 112 (H)Comment: Testing | 65 - 99 mg/dL | EXTERNAL | | | Fasting | performed at [facility], [address] | | LAB | | | | [address], | | | | | | [place] [address] | | | | + + + + + + | BUN | 8Comment: Testing | 8 - 25 mg/dL | EXTERNAL | | | | performed at [facility], [address] | | LAB | | | | [address], | | | | | | [place] [address] | | | | + + + + + + | Creatinine | 0.51 (L)Comment: Testing | 0.70 - 1.30 | EXTERNAL | | | | performed at [facility], [address] | mg/dL | LAB | | | | [address], | | | | | | [place] [address] | | | | + + + + + + | BUN/Creatin | 16Comment: Testing | | EXTERNAL | | | ine Ratio | performed at [facility], [address] | | LAB | | | | [address], | | | | | | [place] [address] | | | | + + + + + + | Calcium | 8.5Comment: NOTE NEW | 8.5 - 10.5 | EXTERNAL | | | | REFERENCE RANGETesting | mg/dL | LAB | | | | performed at [facility], [address] | | | | | | [address], | | | | | | [place] [address] | | | | + + + [...] [address], | | | | | | [place] [address] | | | | + + + [...] EXTERNAL | | | | performed at [facility];[address] | mmol/L | LAB | | | | [address];[place] | | | | | | [address] | | | | + + + + + + | K | 3.5Comment: Testing | 3.5 - 4.9 | EXTERNAL | | | | performed at [facility];[address] | mmol/L | LAB | | | | [address];[place] | | | | | | [address] | | | | + + + + + + | Cl | 103Comment: Testing | 99 - 109 mmol/L | EXTERNAL | | | | performed at [facility];[address] | | LAB | | | | [address];[place] | | | | | | [address] | | | | + + + + + + | CO2 | 26Comment: Testing | 23 - 32 mmol/L | EXTERNAL | | | | performed at [facility];[address] | | LAB | | | | [address];[place] | | | | | | [address] | | | | + + + + + + | Anion Gap | 13Comment: Testing | 5 - 20 mmol/L | EXTERNAL | | | | performed at [facility];[address] | | LAB | | | | [address];[place] | | | | | | [address] | | | | + + + + + + | Glucose, | 134 (H)Comment: Testing | 65 - 99 mg/dL | EXTERNAL | | | Fasting | performed at [facility];[address] | | LAB | | | | [address];[place] | | | | | | [address] | | | | + + + + + + | BUN | 9Comment: Testing | 8 - 25 mg/dL | EXTERNAL | | | | performed at [facility];[address] | | LAB | | | | [address];[place] | | | | | | [address] | | | | + + + + + + | Creatinine | 0.75Comment: Testing | 0.70 - 1.30 | EXTERNAL | | | | performed at [facility];[address] | mg/dL | LAB | | | | [address];[place] | | | | | | [address] | | | | + + + + + + | BUN/Creatin | 12Comment: Testing | | EXTERNAL | | | ine Ratio | performed at [facility];[address] | | LAB | | | | [address];[place] | | | | | | [address] | | | | + + + + + + | Calcium | 8.3 (L)Comment: NOTE NEW | 8.5 - 10.5 | EXTERNAL | | | | REFERENCE RANGETesting | mg/dL | LAB | | | | performed at [facility];[address] | | | | | | [facility];[place], [place] | | | | | | [address] | | | | + + + [...] | | | | | | at [facility];[address];[place] [address] | | | | + + + [...] EXTERNAL | | | | performed at [facility];[address] | mmol/L | LAB | | | | [address];[place] | | | | | | [address] | | | | + + + [...] | | | Fingerstick | performed at [facility];[address] | | LAB | | | | [address];[place], [place] | | | | | | [address] | | | | + + + [...] Performing Physician: VISH ACOSTA | | | | | | INDICATIONS shortness of breath [...] 5.02 cm D-E Excursion: 1.80 cm E-F Ware: | | | 0.08 m/s EPSS: 0.51 [...] 425.60 ms MV | | | A Vishnu: 0.47 m/s MV DecT: 230.39 ms MV E Vishnu: 0.86 m/s MV | | | E/A [...] 1.86 | | | m/s TV A Vishnu: 0.19 m/s TV Dec Ware: 1.11 m/s2 TV Dec Time: | | | 421.97 ms TV E Vishnu: 0.47 m/s TV E/A Ratio: 2.39 | | | Electric Melt Operator: GD Authenticated by: VISH ACOSTA MD Report | | | Date/Time: 10-14-2014 18:41:15 | | + + + + + | Procedure Note | + + | Marlon Santamaria Conversion - 05/05/2019 12:20 AM PDT Patient Name: Steve FORTUNE | | of : 1960 Performing Physician: VISH ACOSTA | | MD INDICATIONS s | | hortness of breath [...] | Index (A-L): 25.12 ml/m2LAAs A2C: 17.63 [id number] A-L A2C: 49.96 mlLAESV MOD A2C: | | 47.06 mlLALs A2C: 5.28 cmLAAs A4C: 18.21 [id number] A-L A4C: 56.04 mlLAESV MOD A4C: | | 48.84 mlLALs A4C: 5.02 cmD-E Excursion: 1.80 cmE-F Ware: 0.08 m/sEPSS: 0.51 | | cmHR: 50.85 BPMAV maxP.46 mmHgAV meanP.08 mmHgAV Vmax: 1.16 m/Dmitry Vmean: | | 0.83 m/Dmitry VTI: 24.68 cmAVA Vmax: 3.04 cm2AVA (VTI): 2.96 [id number] Dopp: 1.67 | | l/gqyd5HPXQ Dopp: 3.62 l/minHR: 49.54 BPMLVOT maxP.42 mmHgLVOT meanP.64 | | mmHgLVSI Dopp: 33.84 ml/m2LVSV Dopp: 73.09 mlLVOT Vmax: 0.92 m/sLVOT Vmean: 0.57 | | m/sLVOT VTI: 19.00 cmMCO: 425.60 msMV A Vishnu: 0.47 m/sMV DecT: 230.39 msMV E | | Vishnu: 0.86 m/sMV E/A Ratio: 1.81MV PHT: 69.55 msMVA By PHT: 3.16 cm2MV A Dur: | | 69.20 msIVRT: 100.34 msSeptal e': 0.10 m/sSeptal E/e': 7.83Lateral e': 0.14 | | m/sLateral E/e': 5.83HR: 49.54 BPMPV maxP.01 mmHgPV meanP.59 mmHgPV | | Vmax: 0.86 m/sPV Vmean: 0.59 m/sPV VTI: 16.11 cmRAP: 10 mmHgRVSP: 23.89 mmHgTR | | maxP.89 mmHgTR Vmax: 1.86 m/sTV A Vishnu: 0.19 m/sTV Dec Ware: 1.11 m/s2TV | | Dec Time: 421.97 msTV E Vishnu: 0.47 m/sTV E/A Ratio: 2.39 Electric Melt Operator: | | GDAuthenticated by: VISH RHONDADANIEL [facility] Date/Time: 10-14-2014 18:41:15 | | IMPRESSION: 1. [...] | |D-E Excursion: 1.80 cm | |E-F Ware: 0.08 m/s | |EPSS: 0.51 cm | [...] | |MCO: 425.60 ms | |MV A Vishnu: 0.47 m/s | |MV DecT: 230.39 ms | |MV E Vishnu: 0.86 m/s | |MV E/A Ratio: 1.81 [...] |TR Vmax: 1.86 m/s | |TV A Vishnu: 0.19 m/s | |TV Dec Ware: 1.11 m/s2 | |TV Dec Time: 421.97 ms | |TV E Vishnu: 0.47 m/s | |TV E/A Ratio: 2.39 | | | |Electric Melt Operator: GD | |Authenticated by: VISH ACOSTA MD [...] | + + + | TONY FORTUNE XR CHEST 1 VIEW 10/14/2014 8:36 AM [...] | | | 5:24AM Referring Provider Line: [phone] ID: [id number] | | + + + [...] 2014 | | 5:24AM Referring Provider Line: [phone] ID: [id number] | | | |IMPRESSION: | [...] Oct 14 2014 5:24AM Referring Provider Line: [phone] ID: [id number] | + + External Lab: [facility] (10/14/2014 4:15 AM PST) + + + [...] | | | | | [place] [address] | | | | + + + + + + | RED CELL | 2.96 (L)Comment: Testing | 4.20 - 5.70 | EXTERNAL | | | COUNT | performed at [facility], [address] | M/uL | LAB | | | | [address], | | | | | | [place] [address] | | | | + + + + + + | Hgb | 9.7 (L)Comment: Testing | 13.2 - 17.0 | EXTERNAL | | | | performed at [facility], [address] | g/dL | LAB | | | | [address], | | | | | | [place] [address] | | | | + + + + + + | Hematocrit, | 29.4 (L)Comment: Testing | 39.0 - 50.0 % | EXTERNAL | | | POC | performed at [facility], [address] | | LAB | | | | [address], | | | | | | [place] [address] | | | | + + + + + + | MCV | 99.5Comment: Testing | 80.0 - 100.0 fl | EXTERNAL | | | | performed at [facility], [address] | | LAB | | | | [address], | | | | | | [place] [address] | | | | + + + + + + | MCH | 32.7Comment: Testing | 27.0 - 34.0 pg | EXTERNAL | | | | performed at [facility], [address] | | LAB | | | | [address], | | | | | | [place] [address] | | | | + + + + + + | MCHC | 32.9Comment: Testing | 32.0 - 35.5 | EXTERNAL | | | | performed at [facility], [address] | g/dL | LAB | | | | [address], | | | | | | [place] [address] | | | | + + + + + + | RDW-CV | 59.1 (H)Comment: Testing | 37 - 53 fl | EXTERNAL | | | | performed at [facility], [address] | | LAB | | | | [address], | | | | | | [place] [address] | | | | + + + + + + | Platelet | 124 (L)Comment: Testing | 150 - 400 K/uL | EXTERNAL | | | Count | performed at [facility], [address] | | LAB | | | Plasma | [address], | | | | | | [place] [address] | | | | + + + + + + | MPV | 8.6Comment: Testing | fl | EXTERNAL | | | | performed at [facility], [address] | | LAB | | | | [address], | | | | | | [place] [address] | | | | + + + + + + | Differentia | AUTOMATEDComment: | | EXTERNAL | | | l Type | Testing performed at | | LAB | | | | [facility], [address] | | | | | | [place] | | | | | | [address] | | | | + + + + + + | % Segmented | 81.9Comment: Testing | % | EXTERNAL | | | | performed at [facility], [address] | | LAB | | | Neutrophils | [address], | | | | | | [place] [address] | | | | + + + + + + | % | 7.9Comment: Testing | % | EXTERNAL | | | Lymphocytes | performed at [facility], [address] | | LAB | | | | [address], | | | | | | [place], [place] [address] | | | | + + + + + + | % Monocytes | 9.3Comment: Testing | % | EXTERNAL | | | | performed at [facility], [address] | | LAB | | | | [address], | | | | | | [place] [address] | | | | + + + + + + | % | 0.7Comment: Testing | % | EXTERNAL | | | Eosinophils | performed at [facility], [address] | | LAB | | | | [address], | | | | | | [place] [address] | | | | + + + + + + | % Basophils | 0.2Comment: Testing | % | EXTERNAL | | | | performed at [facility], [address] | | LAB | | | | [address], | | | | | | [place] [address] | | | | + + + + + + | Absolute | 8.0 (H)Comment: Testing | 1.9 - 7.4 K/uL | EXTERNAL | | | Segmented | performed at [facility], [address] | | LAB | | | Neutrophils | [address], | | | | | | [place] [address] | | | | + + + + + + | Absolute | 0.8 (L)Comment: Testing | 1.0 - 3.9 K/uL | EXTERNAL | | | Lymphocytes | performed at [facility], [address] | | LAB | | | | [address], | | | | | | [place] [address] | | | | + + + + + + | Absolute | 0.9 (H)Comment: Testing | 0 - 0.8 K/uL | EXTERNAL | | | Monocytes | performed at [facility], [address] | | LAB | | | | [address], | | | | | | [place] [address] | | | | + + + + + + | Absolute | 0.1Comment: Testing | 0 - 0.5 K/uL | EXTERNAL | | | Eosinophils | performed at [facility], [address] | | LAB | | | | [address], | | | | | | [place] [address] | | | | + + + + + + | Absolute | 0.0Comment: Testing | 0 - 0.1 K/uL | EXTERNAL | | | Basophils | performed at [facility], [address] | | LAB | | | | [address], | | | | | | [place] [address] | | | | + + + [...] EXTERNAL | | | | performed at [facility], [address] | mmol/L | LAB | | | | [address], | | | | | | [place] [address] | | | | + + + + + + | K | 3.8Comment: Testing | 3.5 - 4.9 | EXTERNAL | | | | performed at [facility], [address] | mmol/L | LAB | | | | [address], | | | | | | [place] [address] | | | | + + + + + + | Cl | 109Comment: Testing | 99 - 109 mmol/L | EXTERNAL | | | | performed at [facility], [address] | | LAB | | | | [address], | | | | | | [place] [address] | | | | + + + + + + | CO2 | 22 (L)Comment: Testing | 23 - 32 mmol/L | EXTERNAL | | | | performed at [facility], [address] | | LAB | | | | [address], | | | | | | [place] [address] | | | | + + + [...] | | | | | [place] [address] | | | | + + + + + + | BUN | 9Comment: Testing | 8 - 25 mg/dL | EXTERNAL | | | | performed at [facility], [address] | | LAB | | | | [address], | | | | | | [place] [address] | | | | + + + + + + | Creatinine | 0.50 (L)Comment: Testing | 0.70 - 1.30 | EXTERNAL | | | | performed at [facility], [address] | mg/dL | LAB | | | | [address], | | | | | | [place] [address] | | | | + + + + + + | BUN/Creatin | 18Comment: Testing | | EXTERNAL | | | ine Ratio | performed at [facility], [address] | | LAB | | | | [address], | | | | | | [place] [address] | | | | + + + + + + | Calcium | 7.7 (L)Comment: NOTE NEW | 8.5 - 10.5 | EXTERNAL | | | | REFERENCE RANGETesting | mg/dL | LAB | | | | performed at [facility], [address] | | | | | | [address], | | | | | | [place] [address] | | | | + + + [...] | | | | | | at [facility], [address] | | | | | | [address], | | | | | | [place] [address] | | | | + + + [...] EXTERNAL | | | | performed at [facility] | | LAB | | | | [facility];[place], [place] | | | | | | [address] | | | | + + + [...] | | | | | | at [facility];[address] [place] [address] | | | | | | [facility];[place] [address] | | | | + + + [...] EXTERNAL | | | | performed at [facility];[address] | mmol/L | LAB | | | | [address];[place], [place] | | | | | | [address] | | | | + + + [...] Rosalio, Rad Conversion - 05/05/2019 12:20 AM LENARD LEEUR4//[id number] yearsXR | | CHEST 1 VIEW10/13/2014 3:50 [...] At | + + + | TONY LEECLINTON 1960 53 years XR CHEST 1 VIEW [...] Marlon Santamaria Conversion - 05/05/2019 12:20 AM LENARD FORTUNE yearsXR | | CHEST 1 VIEW10/13/2014 5:51 [...] | | + + External Lab: [facility] (10/13/2014 2:47 AM PST) + + + + + + | Component | Value | Ref Range | Performed | Pathologist | | | | | At | Signature | + + + + + + | WBC | 7.1Comment: Testing | 3.8 - 11.0 K/uL | EXTERNAL | | | | performed at [facility], [address] | | LAB | | | | [address], | | | | | | [place] [address] | | | | + + + + + + | RED CELL | 2.98 (L)Comment: Testing | 4.20 - 5.70 | EXTERNAL | | | COUNT | performed at [facility], [address] | M/uL | LAB | | | | [address], | | | | | | [place] [address] | | | | + + + + + + | Hgb | 9.7 (L)Comment: Testing | 13.2 - 17.0 | EXTERNAL | | | | performed at [facility], [address] | g/dL | LAB | | | | [address], | | | | | | [place] [address] | | | | + + + + + + | Hematocrit, | 29.8 (L)Comment: Testing | 39.0 - 50.0 % | EXTERNAL | | | POC | performed at [facility], [address] | | LAB | | | | [address], | | | | | | [place] [address] | | | | + + + + + + | MCV | 100.1 (H)Comment: | 80.0 - 100.0 fl | EXTERNAL | | | | Testing performed at | | LAB | | | | [facility], [address] | | | | | | [place] | | | | | | [address] | | | | + + + + + + | MCH | 32.5Comment: Testing | 27.0 - 34.0 pg | EXTERNAL | | | | performed at [facility], [address] | | LAB | | | | [address], | | | | | | [place] [address] | | | | + + + + + + | MCHC | 32.5Comment: Testing | 32.0 - 35.5 | EXTERNAL | | | | performed at [facility], [address] | g/dL | LAB | | | | [address], | | | | | | [place] [address] | | | | + + + + + + | RDW-CV | 60.4 (H)Comment: Testing | 37 - 53 fl | EXTERNAL | | | | performed at [facility], [address] | | LAB | | | | [address], | | | | | | [place] [address] | | | | + + + + + + | Platelet | 107 (L)Comment: Testing | 150 - 400 K/uL | EXTERNAL | | | Count | performed at [facility], [address] | | LAB | | | Plasma | [address], | | | | | | [place] [address] | | | | + + + + + + | MPV | 8.6Comment: Testing | fl | EXTERNAL | | | | performed at [facility], [address] | | LAB | | | | [address], | | | | | | [place] [address] | | | | + + + + + + | Differentia | AUTOMATEDComment: | | EXTERNAL | | | l Type | Testing performed at | | LAB | | | | [facility], [address] | | | | | | [place] | | | | | | [address] | | | | + + + + + + | % Segmented | 78.6Comment: Testing | % | EXTERNAL | | | | performed at [facility], [address] | | LAB | | | Neutrophils | [address], | | | | | | [place] [address] | | | | + + + + + + | % | 9.1Comment: Testing | % | EXTERNAL | | | Lymphocytes | performed at [facility], [address] | | LAB | | | | [address], | | | | | | [place] [address] | | | | + + + + + + | % Monocytes | 11.3Comment: Testing | % | EXTERNAL | | | | performed at [facility], [address] | | LAB | | | | [address], | | | | | | [place] [address] | | | | + + + + + + | % | 0.5Comment: Testing | % | EXTERNAL | | | Eosinophils | performed at [facility], [address] | | LAB | | | | [address], | | | | | | [place] [address] | | | | + + + + + + | % Basophils | 0.5Comment: Testing | % | EXTERNAL | | | | performed at [facility], [address] | | LAB | | | | [address], | | | | | | [place] [address] | | | | + + + + + + | Absolute | 5.6Comment: Testing | 1.9 - 7.4 K/uL | EXTERNAL | | | Segmented | performed at [facility], [address] | | LAB | | | Neutrophils | [address], | | | | | | [place], [place] [address] | | | | + + + + + + | Absolute | 0.6 (L)Comment: Testing | 1.0 - 3.9 K/uL | EXTERNAL | | | Lymphocytes | performed at [facility], [address] | | LAB | | | | [address], | | | | | | [place] [address] | | | | + + + + + + | Absolute | 0.8Comment: Testing | 0 - 0.8 K/uL | EXTERNAL | | | Monocytes | performed at [facility], [address] | | LAB | | | | [address], | | | | | | [place] [address] | | | | + + + + + + | Absolute | 0.0Comment: Testing | 0 - 0.5 K/uL | EXTERNAL | | | Eosinophils | performed at [facility], [address] | | LAB | | | [address], | | | | | | [place] [address] | | | | + + + + + + | Absolute | 0.0Comment: Testing | 0 - 0.1 K/uL | EXTERNAL | | | Basophils | performed at [facility], [address] | | LAB | | | | [address], | | | | | | [place] [address] | | | | + + + [...] | | | | | [place] [address] | | | | + + + + + + | K | 3.4 (L)Comment: Testing | 3.5 - 4.9 | EXTERNAL | | | | performed at [facility], [address] | mmol/L | LAB | | | | [address], | | | | | | [place] [address] | | | | + + + + + + | Cl | 112 (H)Comment: Testing | 99 - 109 mmol/L | EXTERNAL | | | | performed at [facility], [address] | | LAB | | | | [address], | | | | | | [place] [address] | | | | + + + + + + | CO2 | 19 (L)Comment: Testing | 23 - 32 mmol/L | EXTERNAL | | | | performed at [facility], [address] | | LAB | | | | [address], | | | | | | [place] [address] | | | | + + + + + + | Anion Gap | 10Comment: Testing | 5 - 20 mmol/L | EXTERNAL | | | | performed at [facility], [address] | | LAB | | | | [address], | | | | | | [place] [address] | | | | + + + + + + | Glucose, | 133 (H)Comment: Testing | 65 - 99 mg/dL | EXTERNAL | | | Fasting | performed at [facility], [address] | | LAB | | | | [address], | | | | | | [place] [address] | | | | + + + + + + | BUN | 5 (L)Comment: Testing | 8 - 25 mg/dL | EXTERNAL | | | | performed at [facility], [address] | | LAB | | | | [address], | | | | | | [place] [address] | | | | + + + + + + | Creatinine | 0.47 (L)Comment: Testing | 0.70 - 1.30 | EXTERNAL | | | | performed at [facility], [address] | mg/dL | LAB | | | | [address], | | | | | | [place] [address] | | | | + + + + + + | BUN/Creatin | 11Comment: Testing | | EXTERNAL | | | ine Ratio | performed at [facility], [address] | | LAB | | | | [address], | | | | | | [place] [address] | | | | + + + + + + | Calcium | 7.8 (L)Comment: NOTE NEW | 8.5 - 10.5 | EXTERNAL | | | | REFERENCE RANGETesting | mg/dL | LAB | | | | performed at [facility], [address] | | | | | | [address], | | | | | | [place] [address] | | | | + + + [...] | | | | | | at [facility], [address] | | | | | | [place] [address], | | | | | | [place] [address] | | | | + + + [...] LAB | | | | performed at [facility];[address] | | | | | [address];[place], [place] | | | | | | [address] | | | | + + + [...] LAB | | | | performed at [facility] | | | | | | [address];[place], [place] | | | | | | [address] | | | | + + + + + + + + | Specimen | + + | Blood specimen | | (specimen) | + + + +---------+ + + | Performing | Address | City/State/Zipcode | Phone Number | | Organization | | | | + +---------+ + + | EXTERNAL LAB | | | | + +---------+ + + [facility] (10/12/2014 9:39 AM PST) + + [...] | | | | | performed at [facility] | | | | | | [address];[place], [place] | | | | | | [address] | | | | + + + [...] EXTERNAL | | | | performed at [facility], [address] | | LAB | | | | [address], | | | | | | [place] [address] | | | | + + + + + + | RED CELL | 3.39 (L)Comment: Testing | 4.20 - 5.70 | EXTERNAL | | | COUNT | performed at [facility], [address] | M/uL | LAB | | | | [address], | | | | | | [place] [address] | | | | + + + + + + | Hgb | 11.1 (L)Comment: Testing | 13.2 - 17.0 | EXTERNAL | | | | performed at [facility], [address] | g/dL | LAB | | | | [address], | | | | | | [place] [address] | | | | + + + + + + | Hematocrit, | 33.5 (L)Comment: Testing | 39.0 - 50.0 % | EXTERNAL | | | POC | performed at [facility], [address] | | LAB | | | | [address], | | | | | | [place] [address] | | | | + + + + + + | MCV | 98.6Comment: Testing | 80.0 - 100.0 fl | EXTERNAL | | | | performed at [facility], [address] | | LAB | | | | [address], | | | | | | [place] [address] | | | | + + + + + + | MCH | 32.7Comment: Testing | 27.0 - 34.0 pg | EXTERNAL | | | | performed at [facility], [address] | | LAB | | | | [address], | | | | | | [place] [address] | | | | + + + + + + | MCHC | 33.1Comment: Testing | 32.0 - 35.5 | EXTERNAL | | | | performed at [facility], [address] | g/dL | LAB | | | | [address], | | | | | | [place] [address] | | | | + + + + + + | RDW-CV | 59.5 (H)Comment: Testing | 37 - 53 fl | EXTERNAL | | | | performed at [facility], [address] | | LAB | | | | [address], | | | | | | [place] [address] | | | | + + + + + + | Platelet | 138 (L)Comment: Testing | 150 - 400 K/uL | EXTERNAL | | | Count | performed at [facility], [address] | | LAB | | | Plasma | [address], | | | | | | [place] [address] | | | | + + + + + + | MPV | 8.4Comment: Testing | fl | EXTERNAL | | | | performed at [facility], [address] | | LAB | | | | [address], | | | | | | [place] [address] | | | | + + + + + + | Differentia | AUTOMATEDComment: | | EXTERNAL | | | l Type | Testing performed at | | LAB | | | | [facility], [address] | | | | | | [place] | | | | | | [address] | | | | + + + + + + | % Segmented | 79.3Comment: Testing | % | EXTERNAL | | | | performed at [facility], [address] | | LAB | | | Neutrophils | [address], | | | | | | [place] [address] | | | | + + + + + + | % | 7.8Comment: Testing | % | EXTERNAL | | | Lymphocytes | performed at [facility], [address] | | LAB | | | | [address], | | | | | | [place] [address] | | | | + + + + + + | % Monocytes | 12.1Comment: Testing | % | EXTERNAL | | | | performed at [facility], [address] | | LAB | | | | [address], | | | | | | [place] [address] | | | | + + + + + + | % | 0.3Comment: Testing | % | EXTERNAL | | | Eosinophils | performed at [facility], [address] | | LAB | | | | [address], | | | | | | [place] [address] | | | | + + + + + + | % Basophils | 0.5Comment: Testing | % | EXTERNAL | | | | performed at [facility], [address] | | LAB | | | | [address], | | | | | | [place] [address] | | | | + + + + + + | Absolute | 7.2Comment: Testing | 1.9 - 7.4 K/uL | EXTERNAL | | | Segmented | performed at [facility], [address] | | LAB | | | Neutrophils | [address], | | | | | | [place] [address] | | | | + + + + + + | Absolute | 0.7 (L)Comment: Testing | 1.0 - 3.9 K/uL | EXTERNAL | | | Lymphocytes | performed at [facility], [address] | | LAB | | | | [address], | | | | | | [place] [address] | | | | + + + + + + | Absolute | 1.1 (H)Comment: Testing | 0 - 0.8 K/uL | EXTERNAL | | | Monocytes | performed at [facility], [address] | | LAB | | | | [address], | | | | | | [place] [address] | | | | + + + + + + | Absolute | 0.0Comment: Testing | 0 - 0.5 K/uL | EXTERNAL | | | Eosinophils | performed at [facility], [address] | | LAB | | | | [address], | | | | | | [place] [address] | | | | + + + + + + | Absolute | 0.0Comment: Testing | 0 - 0.1 K/uL | EXTERNAL | | | Basophils | performed at [facility], [address] | | LAB | | | | [address], | | | | | | [place] [address] | | | | + + + [...] EXTERNAL | | | | performed at [facility], [address] | | LAB | | | | [address], | | | | | | [place] [address] | | | | + + + [...] | | | | | [place] [address] | | | | + + + + + + | K | 2.8 (L)Comment: Testing | 3.5 - 4.9 | EXTERNAL | | | | performed at [facility], [address] | mmol/L | LAB | | | | [address], | | | | | | [place] [address] | | | | + + + + + + | Cl | 105Comment: Testing | 99 - 109 mmol/L | EXTERNAL | | | | performed at [facility], [address] | | LAB | | | | [address], | | | | | | [place] [address] | | | | + + + + + + | CO2 | 23Comment: Testing | 23 - 32 mmol/L | EXTERNAL | | | | performed at [facility], [address] | | LAB | | | | [address], | | | | | | [place] [address] | | | | + + + + + + | Anion Gap | 9Comment: Testing | 5 - 20 mmol/L | EXTERNAL | | | | performed at [facility], [address] | | LAB | | | | [address], | | | | | | [place] [address] | | | | + + + + + + | Glucose, | 163 (H)Comment: Testing | 65 - 99 mg/dL | EXTERNAL | | | Fasting | performed at [facility], [address] | | LAB | | | | [address], | | | | | | [place] [address] | | | | + + + + + + | BUN | 7 (L)Comment: Testing | 8 - 25 mg/dL | EXTERNAL | | | | performed at [facility], [address] | | LAB | | | | [address], | | | | | | [place] [address] | | | | + + + + + + | Creatinine | 0.57 (L)Comment: Testing | 0.70 - 1.30 | EXTERNAL | | | | performed at [facility], [address] | mg/dL | LAB | | | | [address], | | | | | | [place] [address] | | | | + + + + + + | BUN/Creatin | 12Comment: Testing | | EXTERNAL | | | ine Ratio | performed at [facility], [address] | | LAB | | | | [address], | | | | | | [place] [address] | | | | + + + + + + | Calcium | 7.8 (L)Comment: NOTE NEW | 8.5 - 10.5 | EXTERNAL | | | | REFERENCE RANGETesting | mg/dL | LAB | | | | performed at [facility], [address] | | | | | | [address], | | | | | | [place] [address] | | | | + + + [...] [address], | | | | | | [place] [address] | | | | + + + [...] EXTERNAL | | | | performed at [facility];[address] | | LAB | | | | [address];[place] | | | | | | [address] | | | | + + + + + + | RED CELL | 3.63 (L)Comment: Testing | 4.20 - 5.70 | EXTERNAL | | | COUNT | performed at [facility];[address] | M/uL | LAB | | | | [address];[place] | | | | | | [address] | | | | + + + + + + | Hgb | 10.9 (L)Comment: Testing | 13.2 - 17.0 | EXTERNAL | | | | performed at [facility];[address] | g/dL | LAB | | | | [address];[place] | | | | | | [address] | | | | + + + + + + | Hematocrit, | 34.9 (L)Comment: Testing | 39.0 - 50.0 % | EXTERNAL | | | POC | performed at [facility];[address] | | LAB | | | | [address];[place] | | | | | | [address] | | | | + + + + + + | MCV | 96.2Comment: Testing | 80.0 - 100.0 fl | EXTERNAL | | | | performed at [facility] [facility];[address] | | LAB | | | | [address];[place] | | | | | | [address] | | | | + + + + + + | MCH | 30.0Comment: Testing | 27.0 - 34.0 pg | EXTERNAL | | | | performed at [facility] | | LAB | | | | [address];[place] | | | | | | [address] | | | | + + + + + + | MCHC | 31.2 (L)Comment: Testing | 32.0 - 35.5 | EXTERNAL | | | | performed at [facility] | g/dL | LAB | | | | [address];[place] | | | | | | [address] | | | | + + + + + + | RDW-CV | 58.6 (H)Comment: Testing | 37 - 53 fl | EXTERNAL | | | | performed at [facility] | | LAB | | | | [address];[place] | | | | | | [address] | | | | + + + + + + | Platelet | 164Comment: Testing | 150 - 400 K/uL | EXTERNAL | | | Count | performed at [facility] | | LAB | | | Plasma | [address];[place] | | | | | | [address] | | | | + + + + + + | MPV | 7.8Comment: Testing | fl | EXTERNAL | | | | performed at [facility];[address] | | LAB | | | | [address];[place] | | | | | | [address] | | | | + + + + + + | Differentia | AUTOMATEDComment: | | EXTERNAL | | | l Type | Testing performed at | | LAB | | | | [facility];[place] [address] | | | | + + + + + + | % Segmented | 72.3Comment: Testing | % | EXTERNAL | | | | performed at [facility];[address] | | LAB | | | Neutrophils | [address];[place] | | | | | | [address] | | | | + + + + + + | % | 13.2Comment: Testing | % | EXTERNAL | | | Lymphocytes | performed at [facility];[address] | | LAB | | | | [address];[place] | | | | | | [address] | | | | + + + + + + | % Monocytes | 13.4Comment: Testing | % | EXTERNAL | | | | performed at [facility];[address] | | LAB | | | | [address];[place] | | | | | | [address] | | | | + + + + + + | % | 0.3Comment: Testing | % | EXTERNAL | | | Eosinophils | performed at [facility];[address] | | LAB | | | | [address];[place] | | | | | | [address] | | | | + + + + + + | % Basophils | 0.8Comment: Testing | % | EXTERNAL | | | | performed at [facility];[address] | | LAB | | | | [address];[place] | | | | | | [address] | | | | + + + + + + | Absolute | 7.0Comment: Testing | 1.9 - 7.4 K/uL | EXTERNAL | | | Segmented | performed at [facility];[address] | | LAB | | | Neutrophils | [address];[place] | | | | | | [address] | | | | + + + + + + | Absolute | 1.3Comment: Testing | 1.0 - 3.9 K/uL | EXTERNAL | | | Lymphocytes | performed at [facility];[address] | | LAB | | | | [address];[place] | | | | | | [address] | | | | + + + + + + | Absolute | 1.3 (H)Comment: Testing | 0 - 0.8 K/uL | EXTERNAL | | | Monocytes | performed at [facility];[address] | | LAB | | | | [address];[place] | | | | | | [address] | | | | + + + + + + | Absolute | 0.0Comment: Testing | 0 - 0.5 K/uL | EXTERNAL | | | Eosinophils | performed at [facility];[address] | | LAB | | | | [address];[place] | | | | | | [address] | | | | + + + + + + | Absolute | 0.1Comment: Testing | 0 - 0.1 K/uL | EXTERNAL | | | Basophils | performed at [facility];[address] | | LAB | | | | [address];[place] | | | | | | [address] | | | | + + + [...] EXTERNAL LAB | | Testing performed at [facility];[address] [place] [address];[place] [address] MRSA PCR | | | NEGATIVE Testing performed at | | | [address];[place] [address] | | + + + + +---------+ [...] REMY | | | Testing performed at [facility], [address] [place], [place] | | | [address] | | + + + + +---------+ [...] EXTERNAL | | | | performed at [facility];[address] | | LAB | | | | [address];[place] | | | | | | [address] | | | | + + + [...] EXTERNAL | | | | performed at [facility] | | LAB | | | | [facility];[place], [place] | | | | | | [address] | | | | + + + [...] | | | Total | performed at [facility];[address] | | LAB | | | | [address];[place], [place] | | | | | | [address] | | | | + + + + + + | Albumin | 2.8 (L)Comment: Testing | 3.6 - 5.0 g/dL | EXTERNAL | | | | performed at [facility];[address] | | LAB | | | | [address];[place] | | | | | | [address] | | | | + + + + + + | Bilirubin | 1.6 (H)Comment: Testing | 0.1 - 1.5 mg/dL | EXTERNAL | | | Total | performed at [facility];[address] | | LAB | | | | [address];[place] | | | | | | [address] | | | | + + + + + + | Bilirubin | 0.6 (H)Comment: Testing | 0.0 - 0.3 mg/dL | EXTERNAL | | | Direct | performed at [facility];[address] | | LAB | | | | [address];[place] | | | | | | [address] | | | | + + + + + + | ALP, | 138 (H)Comment: Testing | 35 - 115 U/L | EXTERNAL | | | External | performed at [facility];[address] | | LAB | | | | [address];[place] | | | | | | [address] | | | | + + + + + + | AST | 61 (H)Comment: Testing | 10 - 45 U/L | EXTERNAL | | | | performed at [facility];[address] | | LAB | | | | [address];[place] | | | | | | [address] | | | | + + + + + + | ALT | 54Comment: Testing | 10 - 65 U/L | EXTERNAL | | | | performed at [facility];[address] | | LAB | | | | [address];[place] | | | | | | [address] | | | | + + [...] 11 October 2014. 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 The patient is post interval [...] examination: 11 October 2014. 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 The patient is post interval [...] EXTERNAL | | | | performed at [facility];[address] | mmol/L | LAB | | | | [address];[place], [place] | | | | | | [address] | | | | + + + + + + | K | 2.7 (LL)Comment: RESULT | 3.5 - 4.9 | EXTERNAL | | | | READ BACK BY:TAYA Price IN [place] | mmol/L | LAB | | | | AT 2012 BY FNANY ON | | | | | | [id number] performed | | | | | | at [facility];[address];[place] [address] | | | | + + + + + + | Cl | 102Comment: Testing | 99 - 109 mmol/L | EXTERNAL | | | | performed at [facility];[address] | | LAB | | | | [address];[place] | | | | | | [address] | | | | + + + + + + | CO2 | 25Comment: Testing | 23 - 32 mmol/L | EXTERNAL | | | | performed at [facility];[address] | | LAB | | | | [address];[place] | | | | | | [address] | | | | + + + + + + | Anion Gap | 14Comment: Testing | 5 - 20 mmol/L | EXTERNAL | | | | performed at [facility];[address] | | LAB | | | | [address];[place] | | | | | | [address] | | | | + + + + + + | Glucose, | 143 (H)Comment: Testing | 65 - 99 mg/dL | EXTERNAL | | | Fasting | performed at [facility];[address] | | LAB | | | | [address];[place] | | | | | | [address] | | | | + + + + + + | BUN | 7 (L)Comment: Testing | 8 - 25 mg/dL | EXTERNAL | | | | performed at [facility];[address] | | LAB | | | | [address];[place] | | | | | | [address] | | | | + + + + + + | Creatinine | 0.68 (L)Comment: Testing | 0.70 - 1.30 | EXTERNAL | | | | performed at [facility];[address] | mg/dL | LAB | | | | [address];[place] | | | | | | [address] | | | | + + + + + + | BUN/Creatin | 10Comment: Testing | | EXTERNAL | | | ine Ratio | performed at [facility];[address] | | LAB | | | | [address];[place] | | | | | | [address] | | | | + + + + + + | Calcium | 7.3 (L)Comment: NOTE NEW | 8.5 - 10.5 | EXTERNAL | | | | REFERENCE RANGETesting | mg/dL | LAB | | | | performed at [facility];[address] | | | | | | [address];[place] | | | | | | [address] | | | | + + + [...] | | | | | | at [facility];[address];[place] [address] | | | | + + + + + + + + | Specimen | + + | Blood specimen | | (specimen) | + + + +---------+ + + | Performing | Address | City/State/Zipcode | Phone Number | | Organization | | | | + +---------+ + + | EXTERNAL LAB | | | | + +---------+ + + KANCHAN CARR CG8, Arterial (10/11/2014 7:48 PM PST) + [...] | | LAB | | | | [facility];[address];[place] [address] | | | | + + + + + + | PCO2 ART | 33 (L)Comment: Testing | 35 - 45 mmHg | EXTERNAL | | | | performed at [facility];[address] | | LAB | | | | [address];[place] | | | | | | [address] | | | | + + + + + + | PO2 ART | 225 (H)Comment: Testing | 80 - 105 mmHg | EXTERNAL | | | | performed at [facility];[address] | | LAB | | | | [address];[place] | | | | | | [address] | | | | + + + + + + | HCO3 ART | 28 (H)Comment: Testing | 22 - 26 mmol/L | EXTERNAL | | | | performed at [facility];[address] | | LAB | | | | [address];[place] | | | | | | [address] | | | | + + + + + + | POC | 29 (H)Comment: Testing | 23 - 27 mEq/L | EXTERNAL | | | APPEARANCE | performed at [facility];[address] | | LAB | | | UA | [address];[place] | | | | | | [address] | | | | + + + + + + | Base | 6 (H)Comment: Testing | 0 - 3 mEq/L | EXTERNAL | | | Excess, | performed at [facility];[address] | | LAB | | | Arterial | [address];[place] | | | | | | [address] | | | | + + + + + + | O2 SAT ART | 100 (H)Comment: Testing | 95 - 98 % | EXTERNAL | | | | performed at [facility];[address] | | LAB | | | | [address];[place] | | | | | | [address] | | | | + + + + + + | Sodium, POC | 138Comment: Testing | 135 - 145 mEq/L | EXTERNAL | | | | performed at [facility];[address] | | LAB | | | | [address];[place] | | | | | | [address] | | | | + + + + + + | Potassium, | 2.6 (LL)Comment: Testing | 3.5 - 5.0 mEq/L | EXTERNAL | | | POC | performed at [facility];[address] | | LAB | | | | [address];[place] | | | | | | [address] | | | | + + + + + + | Ionized | 0.98 (L)Comment: Testing | 1.12 - 1.32 | EXTERNAL | | | Calcium, | performed at [facility];888 | mmol/L | LAB | | | POC | [address];[place] | | | | | | [address] | | | | + + + + + + | Glucose, | 146 (H)Comment: Testing | 65 - 99 mg/dL | EXTERNAL | | | POC | performed at [facility];[address] | | LAB | | | | [address];[place] | | | | | | [address] | | | | + + + + + + | Hematocrit, | 35 (L)Comment: Testing | 40.0 - 50.0 % | EXTERNAL | | | POC | performed at [facility];[address] | | LAB | | | | [address];[place] | | | | | | [address] | | | | + + + + + + | Hemoglobin, | 11.9 (L)Comment: Testing | 13.7 - 16.7 | EXTERNAL | | | POC | performed at [facility];888 | g/dL | LAB | | | | [address];[place] | | | | | | [address] | | | | + + + [...] of fall | + + | Seizure ([facility]) Other convulsions | + + | Alcohol withdrawal ([facility]) Alcohol withdrawal | + + | Cerebral edema ([facility]) Cerebral edema | + + | Subdural hematoma, post-traumatic, sequela | + + | Traumatic brain injury, closed, sequela | + + documented in this encounter
--- OUTSIDE RECORDS SUMMARY | ~2019-08-24 | XMS | Encounter Summary ---
Demographics + + + | Address | [address] | | | [place] [address] | + + + | Home Phone | | + + + | Preferred Language | Unknown | + + + | Marital Status | | + + + | Religion Affiliation [...] Team Providers + +------+ + | Care Audiology Director Name | Role | Phone | + +------+ + PCP | Unavailable | + +------+ + Encounter Details +--------+ + + + + | Date | Type | Department | Care Team | Description | +--------+ + + + + | 03/12/ | Hospital | [facility] | Conversion | Pain | | 2015 | Encounter | CONVERSION [address] | Transaction, | | | | | [address] | Provider Unknown | | | | | [place], [place] | [phone] | | | | | [address] | | | | | | [phone] | | | +--------+ + + + [...]
--- OUTSIDE RECORDS SUMMARY | ~2019-08-24 | XMS | Encounter Summary ---
Demographics + + + | Address | [address] | | | [place] [address] | + + + | Home Phone | | + + + | Preferred Language | Unknown | + + + | Marital Status | Single | + + + | [employer] Affiliation | Unknown | + + + | Race | White | + + + | Ethnic Group | Not or | + + + Author + + + | Author | [facility] | + + + | Organization | [facility] | + + + | Address | [...] Team Providers + +------+ + | Care Single Corner Cutter Name | Role | Phone | + +------+ + PCP | Unavailable | + +------+ + Encounter Details +--------+ + + + + | Date | Type | Department | Care Team | Description | +--------+ + + + + | 02/17/ | Results | Orthopa[facility]ics at | [place], | | | 2002 | Only | [facility] [address] | MD Manuelito | | | | | [address] | | | | | | Mailcode: [id number] | | | | | | [address] | | | | | | [place], [place] | | | | | | [address] | | | | | | [phone] | | | +--------+ + + + [...]
--- OUTSIDE RECORDS SUMMARY | ~2019-08-24 | XMS | Encounter Summary ---
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 | | | + + + + + | [facility] | [address] | [place] [address] | | | [facility] | | | | | [...] CENTER | | | | 3.5Performed by [facility] [address] | | LABORATORY | | | | [place] | | [place] | | | | [id number] | | | | + + + + + + + + | Specimen | + + | Blood specimen | | (specimen) | + + + + + + + | Performing | Address | City/State/Zipcode | Phone Number | | Organization | | | | + + + + + | [facility] | [address] | [place] [address] | | | [facility] | | | | | LABORATORY PHANI [...] | | LABORATORY | | | | [facility] [address], | | [place] | | | | [place] [id number] | | | | + + + + + + + + | Specimen | + + | Blood specimen | | (specimen) | + + + + + + + | Performing | Address | City/State/Zipcode | Phone Number | | Organization | | | | + + + + + | [facility] | [address] | [place] [address] | | | [facility] | | | | | [...] PROVIDE NCE | | | | by [facility] [address], | | SACRED | | | | [place] [address] | | HEART | | | |Performed by [facility] [address], [place] [address] | | MEDICAL | | | | [...] + + | [facility] | [address] | [place] [address] | | | [facility] | | | | | LABORATORY [place]ANI [...] | | | | | dose on Wed06/19/19 at 1400, | | | | | [...] | | | | AC, NPO, Daytime 6370-0731 Use | | | | | | | NIGHT DOSE for doses scheduled: | | | | | | | HS, 3AM, Nighttime [id number] | | | | | | | [...] | | | | | modification) on [facility] 06/22/19 at | | | | | [...] mg | | | | Oral, NIGHTLY PRNMary Grace, | | 19 12:03 | | | [...] | | | | | modification) on [facility] 06/22/19 at | | | | | [...] | | | | | modification) on [facility] 06/22/19 at | | | | | [...]
--- OUTSIDE RECORDS SUMMARY | ~2019-08-24 | XMS | Encounter Summary ---
Demographics + + + | Address | [address] | | | [place] [address] | + + + | Home Phone | | + + + | Preferred Language | Unknown | + + + | Marital Status | | + + + | Synagogue Affiliation [...] Team Providers + +------+ + | Care Rock Crusher Name | Role | Phone | + +------+ + PCP | Unavailable | + +------+ + Encounter Details +--------+ + + + + | Date | Type | Department | Care Team | Description | +--------+ + + + + | 11/22/ | Hospital | [facility] | [place] | Seizure (HCC); | | 2015 - | Encounter | [facility] [address] | Subdural hematoma, | | | | [address] | [address] | post-traumatic, | | 11/26/ | | [place], [place] | [place] [address] | initial encounter | | 2014 | | [id number] | [phone] | (HCC); 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 HISTORY OF PRESENT ILLNESS The patient is a 53 y.o. male with significant past medical history. 53 year old male transferred to this facility from [facility] for further evalu ation. The patient suffered [...] if needed. Given report of potential seizure TAILMAN I asked staff to confirm the dose [...] this jae presently. Pt kept on there TAILMAN meds as possible. 11/26/14: patient still ready to d/c once the talha arrives. Nursing is looking into this f urther. The tsh is high but the T4 is in normal range. Would recc recheck and [facility]. Recent Labs Lab 11/25/14 0529 11/23/14 0425 TSH -- 12.42* FREET4 0.9 -- Past Medical History Diagnosis Date Alcohol abuse Frequent falls Drug abuse Past Surgical History Procedure Laterality Date No past surgeries Craniotomy Right 10/11/2014 Procedure: CRANIOTOMY - FOR BLEED; Surgeon: Anthony Chong MD; Location: [facility] IN OR; Service: Neurosurgery; Laterality: Right; Craniectomy Right 10/11/2014 Procedure: CRANIECTOMY; Surgeon: Anthony Chong MD; Location: [facility] OR; Ser vice: Neurosurgery; [...] Value Units Date/Time CT head without contrast [[id number]] Resulted: 11/23/14719 Order Status: Completed Updated: 11/23/14724 Narrative: EVANS MCGUIRE [address] HEAD WO CONTRAST 11/23/2014 7:13 AM INDICATION: Altered mental status, hemorrhage COMPARISON: 11/22/14 TECHNIQUE: CT scan of the head without contrast. 5-mm axial noncontrast images were acquir ed from the foramen magnum through the cranial vertex. FINDINGS: On transmission calibration engineer imaging, there is normal craniocervical alignment with [...] with MRI could be performed. Head Non-Con [[id number]] Resulted: 11/22/142119 Order Status: Completed Updated: 11/22/142124 Narrative: EVANS MCGUIRE CT HEAD WO CONTRAST 11/22/2014 9:08 PM HISTORY: 53 years. Male. Subdural hematoma. TECHNIQUE: 5-mm axial noncontrast images were acquired from the foramen magnum through the cranial fidelina amadeo. COMPARISON: CT head noncontrast 11/22/2014 performed at [facility] 10/14/2014 FINDINGS: An extensive right-sided [...] of the head post right craniectomy. Disposition: intermediate Condition: Stable Code Status: Full Code Discharge [...] orders. Aspiration precautions Fall precautions Follow up: [facility] [address] [facility] [address] In 4 weeks to eval for replacement of skull flap or sooner if needed Carlos Mcconnell MD [address] [place] [id number] In 1 week or next available whichever [...] are the prescriptions that you need to pick pulling machine tender. You may get the following medications from [...] Date of Service: 11/25/14 1015 Status: Signed Retail Associate Manager Bilingual: Miguel Ángel John MD (Physician) [facility]: Hospitalist Discharge Summary Date of Admission: [...] H&P 11/23/14 0252 Expand All Collapse All [facility]: Hospitalist Admission History & Physical Date of Admission: 11/22/2014 Requesting Physician: [facility] Reason for Admission: SZ and SDH History Obtained From: patient CHIEF COMPLAINT: SZ and MARSH. HISTORY OF PRESENT ILLNESS The patient is a 53 y.o. male with significant past medical history. 53 year old male transferred to this facility from [facility] for further evalu ation. The patient suffered [...] if needed. Given report of potential seizure TAILMAN I asked staff to confirm the dose [...] this jae presently. Pt kept on there TAILMAN meds as possible. 11/25/14: patient still ready to d/c once the talha arrives. Nursing is looking into this f urther. Past Medical History Diagnosis Date Alcohol abuse Frequent falls Drug abuse Past Surgical History Procedure Laterality Date No past surgeries Craniotomy Right 10/11/2014 Procedure: CRANIOTOMY - FOR BLEED; Surgeon: Anthony Chong MD; Location: [facility] IN OR; Service: Neurosurgery; Laterality: Right; Craniectomy Right 10/11/2014 Procedure: CRANIECTOMY; Surgeon: Anthony Chong MD; Location: [facility] OR; Ser vice: Neurosurgery; [...] Value Units Date/Time CT head without contrast [[id number]] Resulted: 11/23/14719 Order Status: Completed Updated: 11/23/14724 Narrative: EVANS LOCKETTKATHI [address] HEAD WO CONTRAST 11/23/2014 7:13 AM INDICATION: Altered mental status, hemorrhage COMPARISON: 11/22/14 TECHNIQUE: CT scan of the head without contrast. 5-mm axial noncontrast images were acquir ed from the foramen magnum through the cranial vertex. FINDINGS: On transmission calibration engineer imaging, there is normal craniocervical alignment with [...] with MRI could be performed. Head Non-Con [[id number]] Resulted: 11/22/142119 Order Status: Completed Updated: 11/22/142124 Narrative: EVANS MCGUIRE CT HEAD WO CONTRAST 11/22/2014 9:08 PM HISTORY: 53 years. Male. Subdural hematoma. TECHNIQUE: 5-mm axial noncontrast images were acquired from the foramen magnum through the cranial fidelina amadeo. COMPARISON: CT head noncontrast 11/22/2014 performed at [facility] 10/14/2014 FINDINGS: An extensive right-sided [...] of the head post right craniectomy. Disposition: intermediate Condition: Stable Code Status: Full Code Discharge [...] orders. Aspiration precautions Fall precautions Follow up: [facility] [address] [facility] [id number] In 4 weeks to eval for replacement of skull flap or sooner if needed Carlos Mcconnell MD [address] [place] [id number] In 1 week or next available whichever [...] are the prescriptions that you need to pick pulling machine tender. You may get the following medications from [...] 1934 Date of Service: 11/24/1436 Status: Signed Retail Associate Manager Bilingual: Miguel Ángel John MD (Physician) [facility]: Hospitalist Discharge Summary Date of Admission: [...] H&P 11/23/14 0252 Expand All Collapse All [facility]: Hospitalist Admission History & Physical Date of Admission: 11/22/2014 Requesting Physician: Carter , Emergency Department Reason for Admission: SZ and SDH History Obtained From: patient CHIEF COMPLAINT: SZ and MARSH. HISTORY OF PRESENT ILLNESS The patient is a 53 y.o. male with significant past medical history. 53 year old male transferred to this facility from [facility] for further evalu ation. The patient suffered [...] if needed. Given report of potential seizure TAILMAN I asked staff to confirm the dose [...] this jae presently. Pt kept on there TAILMAN meds as possible. Past Medical History Diagnosis Date Alcohol abuse Frequent falls Drug abuse Past Surgical History Procedure Laterality Date No past surgeries Craniotomy Right 10/11/2014 Procedure: CRANIOTOMY - FOR BLEED; Surgeon: Anthony Chong MD; Location: [facility] IN OR; Service: Neurosurgery; Laterality: Right; Craniectomy Right 10/11/2014 Procedure: CRANIECTOMY; Surgeon: Anthony Chong MD; Location: [facility]; Ser vice: Neurosurgery; Laterality: Right; [...] Value Units Date/Time CT head without contrast [[id number]] Resulted: 11/23/14719 Order Status: Completed Updated: 11/23/14724 Narrative: EVANS MCGUIRE [address] HEAD WO CONTRAST 11/23/2014 7:13 AM INDICATION: Altered mental status, hemorrhage COMPARISON: 11/22/14 TECHNIQUE: CT scan of the head without contrast. 5-mm axial noncontrast images were acquir ed from the foramen magnum through the cranial vertex. FINDINGS: On transmission calibration engineer imaging, there is normal craniocervical alignment with [...] with MRI could be performed. Head Non-Con [[id number]] Resulted: 11/22/142119 Order Status: Completed Updated: 11/22/142124 Narrative: EVANS LOCKETTKATHI CT HEAD WO CONTRAST 11/22/2014 9:08 PM HISTORY: 53 years. Male. Subdural hematoma. TECHNIQUE: 5-mm axial noncontrast images were acquired from the foramen magnum through the cranial fidelina amadeo. COMPARISON: CT head noncontrast 11/22/2014 performed at [facility] 10/14/2014 FINDINGS: An extensive right-sided [...] of the head post right craniectomy. Disposition: intermediate Condition: Stable Code Status: Full Code No discharge procedures on file. Follow up: [facility] [address] [facility] [facility] [address] In 4 weeks to eval for replacement of skull flap or sooner if needed Carlos Mcconnell MD [address] [place] [id number] In 1 week or next available whichever [...] 11/26/141714 Date of Service: 11/26/141713 Status: Signed Retail Associate Manager Bilingual: Mirtha Suh RN (Registered Nurse) Discharge packet given to transport drivers, report on pt given, all questions answered. IV removed. Report called to Na GALARZA at [facility]. Patient left via transport to [facility]. onver alem Transaction, Provider Unknown - 11/26/2014 4:18 PM PDT Case Management by Josseline Mera RN at 11/26/14 1618 Author: Josseline Mera RN Service: (none) Author Type: Class C Truck Driver Filed: 11/26/14 1619 Date of Service: 11/26/14 1618 Status: Signed Retail Associate Manager Bilingual: Josseline Mera RN (Class C Truck Driver) Disposition: [facility] Transportation: [place] Medicaid-ambulance All orders, signed AVS, and prescriptions have been faxed All DC paperwork completed Patient and family in agreement with discharge plan Medicare important message (N/A): Josseline Mera onver alem Transaction, Provider Unknown - 11/26/2014 9:08 AM PDT Case Management by Josseline Mera RN at 11/26/14 0908 Author: Josseline Mera RN Service: (none) Author Type: Class C Truck Driver Filed: 11/26/14 1320 Date of Service: 11/26/14 0908 Status: Addendum Retail Associate Manager Bilingual: Josseline Mera RN (Class C Truck Driver) Related Notes: Original Note by Josseline Mera RN (Class C Truck Driver) filed at 11/26/14 0954 Discharge Plans: Informed that helmet did not arrive on Wednesday as promised, thus pt has not been discharged. Call placed to [facility] and they are indicating it will be deli qamar by 10:30am today. [facility] ([place] informed of plans to [place] today. Stretcher gore [employer] arranged for 2pm today. Paperwork completed, ready for faxing when helmet arrives. 11:00 Notified [place] Medicaid transport that patient has been discharged and his helmet is her e. 1317 called [facility] ([phone]) and they are in route and (possibly here by 4:30), will call us when closer so we can have pt ready for transport. onver alem Transaction, Provider Unknown - 11/23/2014 9:16 AM PST Case Management by Josseline Mera RN at 11/23/14 0916 Author: Josseline Mera RN Service: (none) Author Type: Class C Truck Driver Filed: 11/23/14 1212 Date of Service: 11/23/14915 Status: Addendum Retail Associate Manager Bilingual: Josseline Mera RN (Class C Truck Driver) Related Notes: Original Note by Josseline Mera RN (Class C Truck Driver) filed at 11/23/14 0931 Discharge Planning: Phoned Evans's father Jay Jay ([phone]) to discuss DC plans. He indicated that Evans has been living at [facility] and the plan is for [...] phone, ended the call. I did call [facility] and they are willing to take Evans back when it is appropriate. Th ey are asking that we arrange transport because of his seizures and spontaneous activity it may not be safe, and that he does not have his helmet here. [place] Medicaid Transport ) contacted and they can provide stretcher transport but will need definite time to transport. onver alem Transaction, Provider Unknown - 11/23/2014 8:43 AM PST Nurse Progress Note by Misty Hays RN at 11/23/1443 Author: Misty Hays RN Service: (none) Author Type: Registered Nurse Filed: 11/23/14 1410 Date of Service: 11/23/14842 Status: Addendum Retail Associate Manager Bilingual: Misty Hays RN (Registered Nurse) Related Notes: Original Note by Misty Hays RN (Registered Nurse) filed at [phone]: Attempted to call Teressa ([phone]) back to give updates and ask pts [...] she had picked up the helmet from [facility] and was not planning on co elizabeth to see the patient until Wednesday. Explained the importance of the helmet. Mother did no t seem to understand importance. onver alem Transaction, Provider Unknown - 11/23/2014 6:29 AM PST Progress Notes by Kyrie Payne RPH at 11/23/14628 Author: Kyrie Payne RPH Service: (none) Author Type: Pharmacist Filed: 11/23/14629 Date of Service: 11/23/1429 Status: Signed Retail Associate Manager Bilingual: Kyrie Payne RPH (Pharmacist) Scr = 0.6- [...] | | | | | [place] [address] | | | | + + + + + + | RED CELL | 3.88 (L)Comment: Testing | 4.20 - 5.70 | EXTERNAL | | | COUNT | performed at [facility], [address] | M/uL | LAB | | | | [address], | | | | | | [place] [address] | | | | + + + + + + | Hgb | 12.3 (L)Comment: Testing | 13.2 - 17.0 | EXTERNAL | | | | performed at [facility], [address] | g/dL | LAB | | | | [address], | | | | | | [place] [address] | | | | + + + + + + | Hematocrit, | 36.2 (L)Comment: Testing | 39.0 - 50.0 % | EXTERNAL | | | POC | performed at [facility], [address] | | LAB | | | | [address], | | | | | | [place] [address] | | | | + + + + + + | MCV | 93.4Comment: Testing | 80.0 - 100.0 fl | EXTERNAL | | | | performed at [facility], [address] | | LAB | | | | [address], | | | | | | [place] [address] | | | | + + + + + + | MCH | 31.7Comment: Testing | 27.0 - 34.0 pg | EXTERNAL | | | | performed at [facility], [address] | | LAB | | | | [address], | | | | | | [place] [address] | | | | + + + + + + | MCHC | 34.0Comment: Testing | 32.0 - 35.5 | EXTERNAL | | | | performed at [facility], [address] | g/dL | LAB | | | | [address], | | | | | | [place] [address] | | | | + + + + + + | RDW-CV | 46.8Comment: Testing | 37 - 53 fl | EXTERNAL | | | | performed at [facility], [address] | | LAB | | | | [address], | | | | | | [place] [address] | | | | + + + + + + | Platelet | 161Comment: Testing | 150 - 400 K/uL | EXTERNAL | | | Count | performed at [facility], [address] | | LAB | | | Plasma | [address], | | | | | | [place] [address] | | | | + + + + + + | MPV | 8.7Comment: Testing | fl | EXTERNAL | | | | performed at [facility], [address] | | LAB | | | | [address], | | | | | | [place] [address] | | | | + + + + + + | Differentia | AUTOMATEDComment: | | EXTERNAL | | | l Type | Testing performed at | | LAB | | | | [facility], [address] | | | | | | [place] | | | | | | [address] | | | | + + + + + + | % Segmented | 64.56Comment: Testing | % | EXTERNAL | | | | performed at [facility], [address] | | LAB | | | Neutrophils | [address], | | | | | | [place] [address] | | | | + + + + + + | % | 18.74Comment: Testing | % | EXTERNAL | | | Lymphocytes | performed at [facility], [address] | | LAB | | | | [address], | | | | | | [place] [address] | | | | + + + + + + | % Monocytes | 11.05Comment: Testing | % | EXTERNAL | | | | performed at [facility], [address] | | LAB | | | | [address], | | | | | | [place] [address] | | | | + + + + + + | % | 4.94Comment: Testing | % | EXTERNAL | | | Eosinophils | performed at [facility], [address] | | LAB | | | | [address], | | | | | | [place] [address] | | | | + + + + + + | % Basophils | 0.71Comment: Testing | % | EXTERNAL | | | | performed at [facility], [address] | | LAB | | | | [address], | | | | | | [place] [address] | | | | + + + + + + | Absolute | 3.91Comment: Testing | 1.90 - 7.40 | EXTERNAL | | | Segmented | performed at [facility], [address] | K/uL | LAB | | | Neutrophils | [address], | | | | | | [place] [address] | | | | + + + + + + | Absolute | 1.14Comment: Testing | 1.00 - 3.90 | EXTERNAL | | | Lymphocytes | performed at [facility], [address] | K/uL | LAB | | | | [address], | | | | | | [place] [address] | | | | + + + + + + | Absolute | 0.67Comment: Testing | 0.00 - 0.80 | EXTERNAL | | | Monocytes | performed at [facility], [address] | K/uL | LAB | | | | [address], | | | | | | [place] [address] | | | | + + + + + + | Absolute | 0.30Comment: Testing | 0.00 - 0.50 | EXTERNAL | | | Eosinophils | performed at [facility], [address] | K/uL | LAB | | | | [address], | | | | | | [place] [address] | | | | + + + + + + | Absolute | 0.04Comment: Testing | 0.00 - 0.10 | EXTERNAL | | | Basophils | performed at [facility], [address] | K/uL | LAB | | | | [address], | | | | | | [place] [address] | | | | + + + [...] EXTERNAL | | | | performed at [facility], [address] | | LAB | | | | [address], | | | | | | [place] [address] | | | | + + + [...] EXTERNAL | | | | performed at [facility], [address] | | LAB | | | | [address], | | | | | | [place] [address] | | | | + + + [...] | | | | | [place] [address] | | | | + + + [...] | | | | | [place] [address] | | | | + + + + + + | CO2 | 27Comment: Testing | 23 - 32 mmol/L | EXTERNAL | | | | performed at [facility], [address] | | LAB | | | | [address], | | | | | | [place] [address] | | | | + + + + + + | Anion Gap | 9Comment: Testing | 5 - 20 mmol/L | EXTERNAL | | | | performed at [facility], [address] | | LAB | | | | [address], | | | | | | [place] [address] | | | | + + + + + + | Glucose, | 99Comment: Testing | 65 - 99 mg/dL | EXTERNAL | | | Fasting | performed at [facility], [address] | | LAB | | | | [address], | | | | | | [place] [address] | | | | + + + + + + | BUN | 8Comment: Testing | 8 - 25 mg/dL | EXTERNAL | | | | performed at [facility], [address] | | LAB | | | | [address], | | | | | | [place] [address] | | | | + + + + + + | Creatinine | 0.62 (L)Comment: Testing | 0.70 - 1.30 | EXTERNAL | | | | performed at [facility], [address] | mg/dL | LAB | | | | [address], | | | | | | [place] [address] | | | | + + + + + + | BUN/Creatin | 13Comment: Testing | | EXTERNAL | | | ine Ratio | performed at [facility], [address] | | LAB | | | [address], | | | | | | [place] [address] | | | | + + + + + + | Calcium | 8.9Comment: Testing | 8.5 - 10.5 | EXTERNAL | | | | performed at [facility], [address] | mg/dL | LAB | | | | [address], | | | | | | [place] [address] | | | | + + + + + + | Protein, | 6.7Comment: Testing | 6.3 - 8.2 g/dL | EXTERNAL | | | Total | performed at [facility], [address] | | LAB | | | | [address], | | | | | | [place] [address] | | | | + + + + + + | Albumin | 3.2 (L)Comment: Testing | 3.6 - 5.0 g/dL | EXTERNAL | | | | performed at [facility], [address] | | LAB | | | | [address], | | | | | | [place] [address] | | | | + + + + + + | Globulin | 3.5Comment: Testing | 1.3 - 4.9 g/dL | EXTERNAL | | | | performed at [facility], [address] | | LAB | | | [address], | | | | | | [place] [address] | | | | + + + + + + | A/G Ratio | 0.9 (L)Comment: Testing | 1.0 - 2.4 | EXTERNAL | | | | performed at [facility], [address] | | LAB | | | | [address], | | | | | | [place] [address] | | | | + + + + + + | Bilirubin | 0.4Comment: Testing | 0.1 - 1.5 mg/dL | EXTERNAL | | | Total | performed at [facility], [address] | | LAB | | | | [address], | | | | | | [place] [address] | | | | + + + + + + | ALP, | 105Comment: Testing | 35 - 115 U/L | EXTERNAL | | | External | performed at [facility], [address] | | LAB | | | | [address], | | | | | | [place] [address] | | | | + + + + + + | AST | 26Comment: Testing | 10 - 45 U/L | EXTERNAL | | | | performed at [facility], [address] | | LAB | | | | [address], | | | | | | [place] [address] | | | | + + + + + + | ALT | 19Comment: Testing | 10 - 65 U/L | EXTERNAL | | | | performed at [facility], [address] | | LAB | | | | [address], | | | | | | [place] [address] | | | | + + + [...] [address] | | | | | | [address], | | | | | | [place] [address] | | | | + + + [...] EXTERNAL | | | | performed at [facility], [address] | K/uL | LAB | | | | [address], | | | | | | [place] [address] | | | | + + + + + + | RED CELL | 4.10 (L)Comment: Testing | 4.20 - 5.70 | EXTERNAL | | | COUNT | performed at [facility], [address] | M/uL | LAB | | | | [address], | | | | | | [place] [address] | | | | + + + + + + | Hgb | 12.9 (L)Comment: Testing | 13.2 - 17.0 | EXTERNAL | | | | performed at [facility], [address] | g/dL | LAB | | | | [address], | | | | | | [place] [address] | | | | + + + + + + | Hematocrit, | 38.6 (L)Comment: Testing | 39.0 - 50.0 % | EXTERNAL | | | POC | performed at [facility], [address] | | LAB | | | | [address], | | | | | | [place] [address] | | | | + + + + + + | MCV | 94.2Comment: Testing | 80.0 - 100.0 fl | EXTERNAL | | | | performed at [facility], [address] | | LAB | | | | [address], | | | | | | [place] [address] | | | | + + + + + + | MCH | 31.4Comment: Testing | 27.0 - 34.0 pg | EXTERNAL | | | | performed at [facility], [address] | | LAB | | | | [address], | | | | | | [place] [address] | | | | + + + + + + | MCHC | 33.3Comment: Testing | 32.0 - 35.5 | EXTERNAL | | | | performed at [facility], [address] | g/dL | LAB | | | | [address], | | | | | | [place] [address] | | | | + + + + + + | RDW-CV | 46.8Comment: Testing | 37 - 53 fl | EXTERNAL | | | | performed at [facility], [address] | | LAB | | | | [address], | | | | | | [place] [address] | | | | + + + + + + | Platelet | 161Comment: Testing | 150 - 400 K/uL | EXTERNAL | | | Count | performed at [facility], [address] | | LAB | | | Plasma | [address], | | | | | | [place] [address] | | | | + + + + + + | MPV | 8.9Comment: Testing | fl | EXTERNAL | | | | performed at [facility], [address] | | LAB | | | | [address], | | | | | | [place] [address] | | | | + + + + + + | Differentia | AUTOMATEDComment: | | EXTERNAL | | | l Type | Testing performed at | | LAB | | | | [facility], [address] | | | | | | [place] | | | | | | [address] | | | | + + + + + + | % Segmented | 60.71Comment: Testing | % | EXTERNAL | | | | performed at [facility], [address] | | LAB | | | Neutrophils | [address], | | | | | | [place] [address] | | | | + + + + + + | % | 21.02Comment: Testing | % | EXTERNAL | | | Lymphocytes | performed at [facility], [address] | | LAB | | | | [address], | | | | | | [place] [address] | | | | + + + + + + | % Monocytes | 12.59Comment: Testing | % | EXTERNAL | | | | performed at [facility], [address] | | LAB | | | | [address], | | | | | | [place] [address] | | | | + + + + + + | % | 5.10Comment: Testing | % | EXTERNAL | | | Eosinophils | performed at [facility], [address] | | LAB | | | | [address], | | | | | | [place] [address] | | | | + + + + + + | % Basophils | 0.58Comment: Testing | % | EXTERNAL | | | | performed at [facility], [address] | | LAB | | | [address], | | | | | | [place] [address] | | | | + + + + + + | Absolute | 3.70Comment: Testing | 1.90 - 7.40 | EXTERNAL | | | Segmented | performed at [facility], [address] | K/uL | LAB | | | Neutrophils | [address], | | | | | | [place] [address] | | | | + + + + + + | Absolute | 1.28Comment: Testing | 1.00 - 3.90 | EXTERNAL | | | Lymphocytes | performed at [facility], [address] | K/uL | LAB | | | | [address], | | | | | | [place] [address] | | | | + + + + + + | Absolute | 0.77Comment: Testing | 0.00 - 0.80 | EXTERNAL | | | Monocytes | performed at [facility], [address] | K/[address]L | LAB | | | | [address], | | | | | | [place] [address] | | | | + + + + + + | Absolute | 0.31Comment: Testing | 0.00 - 0.50 | EXTERNAL | | | Eosinophils | performed at [facility], [address] | K/[address]L | LAB | | | | [address], | | | | | | [place] [address] | | | | + + + + + + | Absolute | 0.04Comment: Testing | 0.00 - 0.10 | EXTERNAL | | | Basophils | performed at [facility], [address] | K/uL | LAB | | | | [address], | | | | | | [place] [address] | | | | + + + [...] | | | (REF) | performed at [facility], [address] | | LAB | | | | [address], | | | | | | [place] [address] | | | | + + + [...] EXTERNAL | | | | performed at [facility], [address] | | LAB | | | | [address], | | | | | | [place] [address] | | | | + + + [...] | | | | | [place] [address] | | | | + + [...] | | | | | [place] [address] | | | | + + + + + + | K | 3.8Comment: Testing | 3.5 - 4.9 | EXTERNAL | | | | performed at [facility], [address] | mmol/L | LAB | | | | [address], | | | | | | [place] [address] | | | | + + + + + + | Cl | 104Comment: Testing | 99 - 109 mmol/L | EXTERNAL | | | | performed at [facility], [address] | | LAB | | | | [address], | | | | | | [place] [address] | | | | + + + + + + | CO2 | 28Comment: Testing | 23 - 32 mmol/L | EXTERNAL | | | | performed at [facility], [address] | | LAB | | | | [address], | | | | | | [place] [address] | | | | + + + + + + | Anion Gap | 8Comment: Testing | 5 - 20 mmol/L | EXTERNAL | | | | performed at [facility], [address] | | LAB | | | | [address], | | | | | | [place] [address] | | | | + + + + + + | Glucose, | 107 (H)Comment: Testing | 65 - 99 mg/dL | EXTERNAL | | | Fasting | performed at [facility], [address] | | LAB | | | | [address], | | | | | | [place] [address] | | | | + + + + + + | BUN | 6 (L)Comment: Testing | 8 - 25 mg/dL | EXTERNAL | | | | performed at [facility], [address] | | LAB | | | | [address], | | | | | | [place] [address] | | | | + + + + + + | Creatinine | 0.59 (L)Comment: Testing | 0.70 - 1.30 | EXTERNAL | | | | performed at [facility], [address] | mg/dL | LAB | | | | [address], | | | | | | [place] [address] | | | | + + + + + + | BUN/Creatin | 10Comment: Testing | | EXTERNAL | | | ine Ratio | performed at [facility], [address] | | LAB | | | | [address], | | | | | | [place] [address] | | | | + + + + + + | Calcium | 9.2Comment: Testing | 8.5 - 10.5 | EXTERNAL | | | | performed at [facility], [address] | mg/dL | LAB | | | | [address], | | | | | | [place] [address] | | | | + + + + + + | Protein, | 7.0Comment: Testing | 6.3 - 8.2 g/dL | EXTERNAL | | | Total | performed at [facility], [address] | | LAB | | | | [address], | | | | | | [place] [address] | | | | + + + + + + | Albumin | 3.4 (L)Comment: Testing | 3.6 - 5.0 g/dL | EXTERNAL | | | | performed at [facility], [address] | | LAB | | | | [address], | | | | | | [place] [address] | | | | + + + + + + | Globulin | 3.6Comment: Testing | 1.3 - 4.9 g/dL | EXTERNAL | | | | performed at [facility], [address] | | LAB | | | | [address], | | | | | | [place] [address] | | | | + + + + + + | A/G Ratio | 0.9 (L)Comment: Testing | 1.0 - 2.4 | EXTERNAL | | | | performed at [facility], [address] | | LAB | | | | [address], | | | | | | [place] [address] | | | | + + + + + + | Bilirubin | 0.5Comment: Testing | 0.1 - 1.5 mg/dL | EXTERNAL | | | Total | performed at [facility], [address] | | LAB | | | | [address], | | | | | | [place] [address] | | | | + + + + + + | ALP, | 115Comment: Testing | 35 - 115 U/L | EXTERNAL | | | External | performed at [facility], [address] | | LAB | | | | [address], | | | | | | [place] [address] | | | | + + + + + + | AST | 27Comment: Testing | 10 - 45 U/L | EXTERNAL | | | | performed at [facility], [address] | | LAB | | | | [address], | | | | | | [place] [address] | | | | + + + + + + | ALT | 21Comment: Testing | 10 - 65 U/L | EXTERNAL | | | | performed at [facility], [address] | | LAB | | | | [address], | | | | | | [place] [address] | | | | + + + [...] | | | | | | at [facility], [address] | | | | | | [address], | | | | | | [place] [address] | | | | + + + [...] EXTERNAL | | | | performed at [facility], [address] | K/uL | LAB | | | | [address], | | | | | | [place] [address] | | | | + + + + + + | RED CELL | 4.01 (L)Comment: Testing | 4.20 - 5.70 | EXTERNAL | | | COUNT | performed at [facility], [address] | [address] | LAB | | | | [address], | | | | | | [place] [address] | | | | + + + + + + | Hgb | 12.3 (L)Comment: Testing | 13.2 - 17.0 | EXTERNAL | | | | performed at [facility], [address] | g/dL | LAB | | | | [address], | | | | | | [place] [address] | | | | + + + + + + | Hematocrit, | 37.8 (L)Comment: Testing | 39.0 - 50.0 % | EXTERNAL | | | POC | performed at [facility], [address] | | LAB | | | | [address], | | | | | | [place] [address] | | | | + + + + + + | MCV | 94.3Comment: Testing | 80.0 - 100.0 fl | EXTERNAL | | | | performed at [facility], [address] | | LAB | | | | [address], | | | | | | [place] [address] | | | | + + + + + + | MCH | 30.6Comment: Testing | 27.0 - 34.0 pg | EXTERNAL | | | | performed at [facility], [address] | | LAB | | | | [address], | | | | | | [place] [address] | | | | + + + + + + | MCHC | 32.4Comment: Testing | 32.0 - 35.5 | EXTERNAL | | | | performed at [facility], [address] | g/dL | LAB | | | | [address], | | | | | | [place] [address] | | | | + + + + + + | RDW-CV | 47.7Comment: Testing | 37 - 53 fl | EXTERNAL | | | | performed at [facility], [address] | | LAB | | | | [address], | | | | | | [place] [address] | | | | + + + + + + | Platelet | 153Comment: Testing | 150 - 400 K/uL | EXTERNAL | | | Count | performed at [facility], [address] | | LAB | | | Plasma | [address], | | | | | | [place] [address] | | | | + + + + + + | MPV | 9.0Comment: Testing | fl | EXTERNAL | | | | performed at [facility], [address] | | LAB | | | | [address], | | | | | | [place] [address] | | | | + + + + + + | Differentia | AUTOMATEDComment: | | EXTERNAL | | | l Type | Testing performed at | | LAB | | | | [facility], [address] | | | | | | [place] | | | | | | [address] | | | | + + + + + + | % Segmented | 70.29Comment: Testing | % | EXTERNAL | | | | performed at [facility], [address] | | LAB | | | Neutrophils | [address], | | | | | | [place] [address] | | | | + + + + + + | % | 14.74Comment: Testing | % | EXTERNAL | | | Lymphocytes | performed at [facility], [address] | | LAB | | | | [address], | | | | | | [place] [address] | | | | + + + [...] | | | | | [place] [address] | | | | + + + + + + | % Basophils | 0.48Comment: Testing | % | EXTERNAL | | | | performed at [facility], [address] | | LAB | | | | [address], | | | | | | [place] [address] | | | | + + + + + + | Absolute | 5.09Comment: Testing | 1.90 - 7.40 | EXTERNAL | | | Segmented | performed at [facility], [address] | K[address] | LAB | | | Neutrophils | [address], | | | | | | [place] [address] | | | | + + + + + + | Absolute | 1.07Comment: Testing | 1.00 - 3.90 | EXTERNAL | | | Lymphocytes | performed at [facility], [address] | [address] | LAB | | | | [address], | | | | | | [place] [address] | | | | + + + + + + | Absolute | 0.79Comment: Testing | 0.00 - 0.80 | EXTERNAL | | | Monocytes | performed at [facility], [address] | K[address] | LAB | | | | [address], | | | | | | [place] [address] | | | | + + + + + + | Absolute | 0.26Comment: Testing | 0.00 - 0.50 | EXTERNAL | | | Eosinophils | performed at [facility], [address] | [address] | LAB | | | | [address], | | | | | | [place] [address] | | | | + + + + + + | Absolute | 0.03Comment: Testing | 0.00 - 0.10 | EXTERNAL | | | Basophils | performed at [facility], [address] | [address] | LAB | | | | [address], | | | | | | [place] [address] | | | | + + + [...] EXTERNAL | | | | performed at [facility], [address] | | LAB | | | | [address], | | | | | | [place] [address] | | | | + + + [...] | | | | | [place] [address] | | | | + + + [...] | | | | | [place] [address] | | | | + + + + + + | K | 4.0Comment: Testing | 3.5 - 4.9 | EXTERNAL | | | | performed at [facility], [address] | mmol/L | LAB | | | | [address], | | | | | | [place] [address] | | | | + + + + + + | Cl | 102Comment: Testing | 99 - 109 mmol/L | EXTERNAL | | | | performed at [facility], [address] | | LAB | | | | [address], | | | | | | [place] [address] | | | | + + + + + + | CO2 | 26Comment: Testing | 23 - 32 mmol/L | EXTERNAL | | | | performed at [facility], [address] | | LAB | | | | [address], | | | | | | [place] [address] | | | | + + + + + + | Anion Gap | 11Comment: Testing | 5 - 20 mmol/L | EXTERNAL | | | | performed at [facility], [address] | | LAB | | | | [address], | | | | | | [place] [address] | | | | + + + + + + | Glucose, | 103 (H)Comment: Testing | 65 - 99 mg/dL | EXTERNAL | | | Fasting | performed at [facility], [address] | | LAB | | | | [address], | | | | | | [place] [address] | | | | + + + + + + | BUN | 6 (L)Comment: Testing | 8 - 25 mg/dL | EXTERNAL | | | | performed at [facility], [address] | | LAB | | | | [address], | | | | | | [place] [address] | | | | + + + + + + | Creatinine | 0.63 (L)Comment: Testing | 0.70 - 1.30 | EXTERNAL | | | | performed at [facility], [address] | mg/dL | LAB | | | | [address], | | | | | | [place] [address] | | | | + + + + + + | BUN/Creatin | 10Comment: Testing | | EXTERNAL | | | ine Ratio | performed at [facility], [address] | | LAB | | | | [address], | | | | | | [place] [address] | | | | + + + + + + | Calcium | 9.3Comment: Testing | 8.5 - 10.5 | EXTERNAL | | | | performed at [facility], [address] | mg/dL | LAB | | | | [address], | | | | | | [place] [address] | | | | + + + + + + | Protein, | 6.9Comment: Testing | 6.3 - 8.2 g/dL | EXTERNAL | | | Total | performed at [facility], [address] | | LAB | | | | [address], | | | | | | [place] [address] | | | | + + + + + + | Albumin | 3.5 (L)Comment: Testing | 3.6 - 5.0 g/dL | EXTERNAL | | | | performed at [facility], [address] | | LAB | | | | [address], | | | | | | [place] [address] | | | | + + + + + + | Globulin | 3.4Comment: Testing | 1.3 - 4.9 g/dL | EXTERNAL | | | | performed at [facility], [address] | | LAB | | | | [address], | | | | | | [place] [address] | | | | + + + + + + | A/G Ratio | 1.0Comment: Testing | 1.0 - 2.4 | EXTERNAL | | | | performed at [facility], [address] | | LAB | | | | [address], | | | | | | [place] [address] | | | | + + + + + + | Bilirubin | 0.5Comment: Testing | 0.1 - 1.5 mg/dL | EXTERNAL | | | Total | performed at [facility], [address] | | LAB | | | | [address], | | | | | | [place] [address] | | | | + + + + + + | ALP, | 103Comment: Testing | 35 - 115 U/L | EXTERNAL | | | External | performed at [facility], [address] | | LAB | | | | [address], | | | | | | [place] [address] | | | | + + + + + + | AST | 27Comment: Testing | 10 - 45 U/L | EXTERNAL | | | | performed at [facility], [address] | | LAB | | | | [address], | | | | | | [place] [address] | | | | + + + + + + | ALT | 23Comment: Testing | 10 - 65 U/L | EXTERNAL | | | | performed at [facility], [address] | | LAB | | | | [address], | | | | | | [place] [address] | | | | + + + [...] | | | | | [place] [address] | | | | + + [...] magnum through the cranial vertex. FINDINGS: On transmission calibration engineer | | | imaging, there is normal [...] Rad Conversion - 05/05/2019 12:20 AM PDT EVASN MCGUIRE years | | MaleCT HEAD WO CONTRAST11/23/2014 7:13 AM INDICATION: Altered mental status, hemorrhage | | COMPARISON: 11/22/14 TECHNIQUE: CT scan of the head without contrast. 5-mm axial | | noncontrast images were acquired from the foramen magnum through the cranial vertex. | | FINDINGS: On transmission calibration engineer imaging, there is normal craniocervical alignment with [...] EXTERNAL | | | | performed at [facility], [address] | K/uL | LAB | | | | [address], | | | | | | [place] [address] | | | | + + + + + + | RED CELL | 4.01 (L)Comment: Testing | 4.20 - 5.70 | EXTERNAL | | | COUNT | performed at [facility], [address] | M/uL | LAB | | | | [address], | | | | | | [place] [address] | | | | + + + + + + | Hgb | 12.5 (L)Comment: Testing | 13.2 - 17.0 | EXTERNAL | | | | performed at [facility], [address] | g/dL | LAB | | | | [address], | | | | | | [place] [address] | | | | + + + + + + | Hematocrit, | 38.0 (L)Comment: Testing | 39.0 - 50.0 % | EXTERNAL | | | POC | performed at [facility], [address] | | LAB | | | | [address], | | | | | | [place] [address] | | | | + + + + + + | MCV | 94.9Comment: Testing | 80.0 - 100.0 fl | EXTERNAL | | | | performed at [facility], [address] | | LAB | | | | [address], | | | | | | [place] [address] | | | | + + + + + + | MCH | 31.2Comment: Testing | 27.0 - 34.0 pg | EXTERNAL | | | | performed at [facility], [address] | | LAB | | | | [address], | | | | | | [place] [address] | | | | + + + + + + | MCHC | 32.9Comment: Testing | 32.0 - 35.5 | EXTERNAL | | | | performed at [facility], [address] | g/dL | LAB | | | | [address], | | | | | | [place] [address] | | | | + + + + + + | RDW-CV | 47.3Comment: Testing | 37 - 53 fl | EXTERNAL | | | | performed at [facility], [address] | | LAB | | | | [address], | | | | | | [place] [address] | | | | + + + + + + | Platelet | 171Comment: Testing | 150 - 400 K/uL | EXTERNAL | | | Count | performed at [facility], [address] | | LAB | | | Plasma | [address], | | | | | | [place] [address] | | | | + + + + + + | MPV | 8.8Comment: Testing | fl | EXTERNAL | | | | performed at [facility], [address] | | LAB | | | | [address], | | | | | | [place] [address] | | | | + + + + + + | Differentia | AUTOMATEDComment: | | EXTERNAL | | | l Type | Testing performed at | | LAB | | | | [facility], [address] | | | | | | [place] | | | | | | [address] | | | | + + + + + + | % Segmented | 67.69Comment: Testing | % | EXTERNAL | | | | performed at [facility], [address] | | LAB | | | Neutrophils | [address], | | | | | | [place] [address] | | | | + + + + + + | % | 20.09Comment: Testing | % | EXTERNAL | | | Lymphocytes | performed at [facility], [address] | | LAB | | | | [address], | | | | | | [place] [address] | | | | + + + + + + | % Monocytes | 9.27Comment: Testing | % | EXTERNAL | | | | performed at [facility], [address] | | LAB | | | | [address], | | | | | | [place] [address] | | | | + + + + + + | % | 2.66Comment: Testing | % | EXTERNAL | | | Eosinophils | performed at [facility], [address] | | LAB | | | | [address], | | | | | | [place] [address] | | | | + + + + + + | % Basophils | 0.29Comment: Testing | % | EXTERNAL | | | | performed at [facility], [address] | | LAB | | | | [address], | | | | | | [place] [address] | | | | + + + + + + | Absolute | 5.79Comment: Testing | 1.90 - 7.40 | EXTERNAL | | | Segmented | performed at [facility], [address] | K/uL | LAB | | | Neutrophils | [address], | | | | | | [place] [address] | | | | + + + + + + | Absolute | 1.72Comment: Testing | 1.00 - 3.90 | EXTERNAL | | | Lymphocytes | performed at [facility], [address] | K/uL | LAB | | | | [address], | | | | | | [place] [address] | | | | + + + + + + | Absolute | 0.79Comment: Testing | 0.00 - 0.80 | EXTERNAL | | | Monocytes | performed at [facility], [address] | K/[address]L | LAB | | | | [address], | | | | | | [place] [address] | | | | + + + + + + | Absolute | 0.23Comment: Testing | 0.00 - 0.50 | EXTERNAL | | | Eosinophils | performed at [facility], [address] | K/uL | LAB | | | | [address], | | | | | | [place] [address] | | | | + + + + + + | Absolute | 0.03Comment: Testing | 0.00 - 0.10 | EXTERNAL | | | Basophils | performed at [facility], [address] | K/[address]L | LAB | | | | [address], | | | | | | [place] [address] | | | | + + + [...] [place] | | | | | | [address] | | | | + + + [...] EXTERNAL | | | | performed at [facility], [address] | | LAB | | | | [address], | | | | | | [place] [address] | | | | + + + [...] EXTERNAL | | | | performed at [facility], [address] | | LAB | | | | [address], | | | | | | [place] [address] | | | | + + + [...] | | | | | [place] [address] | | | | + + + + + + | K | 4.2Comment: Testing | 3.5 - 4.9 | EXTERNAL | | | | performed at [facility], [address] | mmol/L | LAB | | | | [address], | | | | | | [place] [address] | | | | + + + + + + | Cl | 102Comment: Testing | 99 - 109 mmol/L | EXTERNAL | | | | performed at [facility], [address] | | LAB | | | | [address], | | | | | | [place] [address] | | | | + + + + + + | CO2 | 25Comment: Testing | 23 - 32 mmol/L | EXTERNAL | | | | performed at [facility], [address] | | LAB | | | | [address], | | | | | | [place] [address] | | | | + + + + + + | Anion Gap | 13Comment: Testing | 5 - 20 mmol/L | EXTERNAL | | | | performed at [facility], [address] | | LAB | | | | [address], | | | | | | [place] [address] | | | | + + + + + + | Glucose, | 113 (H)Comment: Testing | 65 - 99 mg/dL | EXTERNAL | | | Fasting | performed at [facility], [address] | | LAB | | | | [address], | | | | | | [place] [address] | | | | + + + + + + | BUN | 4 (L)Comment: Testing | 8 - 25 mg/dL | EXTERNAL | | | | performed at [facility], [address] | | LAB | | | | [address], | | | | | | [place] [address] | | | | + + + + + + | Creatinine | 0.60 (L)Comment: Testing | 0.70 - 1.30 | EXTERNAL | | | | performed at [facility], [address] | mg/dL | LAB | | | | [address], | | | | | | [place] [address] | | | | + + + + + + | BUN/Creatin | 7Comment: Testing | | EXTERNAL | | | ine Ratio | performed at [facility], [address] | | LAB | | | | [address], | | | | | | [place] [address] | | | | + + + + + + | Calcium | 9.4Comment: Testing | 8.5 - 10.5 | EXTERNAL | | | | performed at [facility], [address] | mg/dL | LAB | | | | [address], | | | | | | [place] [address] | | | | + + + + + + | Protein, | 7.3Comment: Testing | 6.3 - 8.2 g/dL | EXTERNAL | | | Total | performed at [facility], [address] | | LAB | | | | [address], | | | | | | [place] [address] | | | | + + + + + + | Albumin | 3.7Comment: Testing | 3.6 - 5.0 g/dL | EXTERNAL | | | | performed at [facility], [address] | | LAB | | | | [address], | | | | | | [place] [address] | | | | + + + + + + | Globulin | 3.6Comment: Testing | 1.3 - 4.9 g/dL | EXTERNAL | | | | performed at [facility], [address] | | LAB | | | | [address], | | | | | | [place] [address] | | | | + + + + + + | A/G Ratio | 1.0Comment: Testing | 1.0 - 2.4 | EXTERNAL | | | | performed at [facility], [address] | | LAB | | | | [address], | | | | | | [place] [address] | | | | + + + + + + | Bilirubin | 0.5Comment: Testing | 0.1 - 1.5 mg/dL | EXTERNAL | | | Total | performed at [facility], [address] | | LAB | | | | [address], | | | | | | [place] [address] | | | | + + + + + + | ALP, | 104Comment: Testing | 35 - 115 U/L | EXTERNAL | | | External | performed at [facility], [address] | | LAB | | | | [address], | | | | | | [place] [address] | | | | + + + + + + | AST | 36Comment: Testing | 10 - 45 U/L | EXTERNAL | | | | performed at [facility], [address] | | LAB | | | | [address], | | | | | | [place] [address] | | | | + + + + + + | ALT | 26Comment: Testing | 10 - 65 U/L | EXTERNAL | | | | performed at [facility], [address] | | LAB | | | | [facility], | | | | | | [place] [address] | | | | + + + [...] | | | | | | at [facility], [address] | | | | | | [facility], | | | | | | [place] [address] | | | | + + + [...] noncontrast 11/22/2014 | | | performed at [facility] 10/14/2014 FINDINGS: An | | [...] vertex. COMPARISON:CT head noncontrast 11/22/2014 performed at [facility]., | | 10/14/2014 FINDINGS:An extensive [...] EXTERNAL | | | | performed at [facility] [place] | K/uL | LAB | | | | [address];[place], [place] | | | | | | [address] | | | | + + + + + + | RED CELL | 3.99 (L)Comment: Testing | 4.20 - 5.70 | EXTERNAL | | | COUNT | performed at [facility] | M/uL | LAB | | | | [address];[place] | | | | | | [address] | | | | + + + + + + | Hgb | 12.4 (L)Comment: Testing | 13.2 - 17.0 | EXTERNAL | | | | performed at [facility];[address] | g/dL | LAB | | | | [address];[place] | | | | | | [address] | | | | + + + + + + | Hematocrit, | 37.9 (L)Comment: Testing | 39.0 - 50.0 % | EXTERNAL | | | POC | performed at [facility] [place] | | LAB | | | | [address];[place] | | | | | | [address] | | | | + + + + + + | MCV | 95.2Comment: Testing | 80.0 - 100.0 fl | EXTERNAL | | | | performed at [facility] [place] | | LAB | | | | [address];[place] | | | | | | [address] | | | | + + + + + + | MCH | 31.0Comment: Testing | 27.0 - 34.0 pg | EXTERNAL | | | | performed at [facility] [place] | | LAB | | | | [address];[place] | | | | | | [address] | | | | + + + + + + | MCHC | 32.6Comment: Testing | 32.0 - 35.5 | EXTERNAL | | | | performed at [facility] [place] | g/dL | LAB | | | | [address];[place] | | | | | | [address] | | | | + + + + + + | RDW-CV | 48.1Comment: Testing | 37 - 53 fl | EXTERNAL | | | | performed at [facility] [place] | | LAB | | | | [address];[place] | | | | | | [address] | | | | + + + + + + | Platelet | 165Comment: Testing | 150 - 400 K/uL | EXTERNAL | | | Count | performed at [facility] [place] | | LAB | | | Plasma | [address];[place] | | | | | | [address] | | | | + + + + + + | MPV | 9.5Comment: Testing | fl | EXTERNAL | | | | performed at [facility] [place] | | LAB | | | | [address];[place] | | | | | | [address] | | | | + + + + + + | Differentia | AUTOMATEDComment: | | EXTERNAL | | | l Type | Testing performed at | | LAB | | | | [facility] [place];[place] [address] | | | | + + + + + + | % Segmented | 79.71Comment: Testing | % | EXTERNAL | | | | performed at [facility] [place] | | LAB | | | Neutrophils | [address];[place] | | | | | | [address] | | | | + + + + + + | % | 12.56Comment: Testing | % | EXTERNAL | | | Lymphocytes | performed at [facility] [place] | | LAB | | | | [address];[place] | | | | | | [address] | | | | + + + + + + | % Monocytes | 6.71Comment: Testing | % | EXTERNAL | | | | performed at [facility] [place] | | LAB | | | | [address];[place] | | | | | | [address] | | | | + + + + + + | % | 0.69Comment: Testing | % | EXTERNAL | | | Eosinophils | performed at [facility] [place] | | LAB | | | | [address];[place] | | | | | | [address] | | | | + + + + + + | % Basophils | 0.33Comment: Testing | % | EXTERNAL | | | | performed at [facility] [place] | | LAB | | | | [address];[place] | | | | | | [address] | | | | + + + + + + | Absolute | 7.64 (H)Comment: Testing | 1.90 - 7.40 | EXTERNAL | | | Segmented | performed at [facility] [place] | K/uL | LAB | | | Neutrophils | [address];[place] | | | | | | [address] | | | | + + + + + + | Absolute | 1.20Comment: Testing | 1.00 - 3.90 | EXTERNAL | | | Lymphocytes | performed at [facility] [place] | K/uL | LAB | | | | [address];[place] | | | | | | [address] | | | | + + + + + + | Absolute | 0.64Comment: Testing | 0.00 - 0.80 | EXTERNAL | | | Monocytes | performed at [facility] [facility] | K/uL | LAB | | | | [address];[place] | | | | | | [address] | | | | + + + + + + | Absolute | 0.07Comment: Testing | 0.00 - 0.50 | EXTERNAL | | | Eosinophils | performed at [facility] | K/uL | LAB | | | | [address];[place] | | | | | | [address] | | | | + + + + + + | Absolute | 0.03Comment: Testing | 0.00 - 0.10 | EXTERNAL | | | Basophils | performed at [facility] | K/uL | LAB | | | | [address];[place] | | | | | | [address] | | | | + + + [...] EXTERNAL | | | | performed at [facility] | mmol/L | LAB | | | | [address];[place] | | | | | | [address] | | | | + + + + + + | K | 4.0Comment: Testing | 3.5 - 4.9 | EXTERNAL | | | | performed at [facility] | mmol/L | LAB | | | | [address];[place] | | | | | | [address] | | | | + + + + + + | Cl | 105Comment: Testing | 99 - 109 mmol/L | EXTERNAL | | | | performed at [facility] | | LAB | | | | [address];[place] | | | | | | [address] | | | | + + + + + + | CO2 | 25Comment: Testing | 23 - 32 mmol/L | EXTERNAL | | | | performed at [facility] | | LAB | | | | [address];[place] | | | | | | [address] | | | | + + + + + + | Anion Gap | 12Comment: Testing | 5 - 20 mmol/L | EXTERNAL | | | | performed at [facility] | | LAB | | | | [address];[place] | | | | | | [address] | | | | + + + + + + | Glucose, | 114 (H)Comment: Testing | 65 - 99 mg/dL | EXTERNAL | | | Fasting | performed at [facility] | | LAB | | | | [address];[place] | | | | | | [address] | | | | + + + + + + | BUN | 4 (L)Comment: Testing | 8 - 25 mg/dL | EXTERNAL | | | | performed at [facility] | | LAB | | | | [address];[place] | | | | | | [address] | | | | + + + + + + | Creatinine | 0.73Comment: Testing | 0.70 - 1.30 | EXTERNAL | | | | performed at [facility] | mg/dL | LAB | | | | [address];[place] | | | | | | [address] | | | | + + + + + + | BUN/Creatin | 5Comment: Testing | | EXTERNAL | | | ine Ratio | performed at [facility] | | LAB | | | | [address];[place] | | | | | | [address] | | | | + + + + + + | Calcium | 8.3 (L)Comment: Testing | 8.5 - 10.5 | EXTERNAL | | | | performed at [facility] | mg/dL | LAB | | | | [address];[place] | | | | | | [address] | | | | + + + + + + | Protein, | 7.7Comment: Testing | 6.3 - 8.2 g/dL | EXTERNAL | | | Total | performed at [facility] | | LAB | | | | [address];[place] | | | | | | [address] | | | | + + + + + + | Albumin | 3.3 (L)Comment: Testing | 3.6 - 5.0 g/dL | EXTERNAL | | | | performed at [facility] | | LAB | | | | [address];[place] | | | | | | [address] | | | | + + + + + + | Globulin | 4.4Comment: Testing | 1.3 - 4.9 g/dL | EXTERNAL | | | | performed at [facility] | | LAB | | | | [address];[place] | | | | | | [address] | | | | + + + + + + | A/G Ratio | 0.7 (L)Comment: Testing | 1.0 - 2.4 | EXTERNAL | | | | performed at [facility] | | LAB | | | | [address];[place] | | | | | | [address] | | | | + + + + + + | Bilirubin | 0.3Comment: Testing | 0.1 - 1.5 mg/dL | EXTERNAL | | | Total | performed at [facility] | | LAB | | | | [address];[place] | | | | | | [address] | | | | + + + + + + | ALP, | 137 (H)Comment: Testing | 35 - 115 U/L | EXTERNAL | | | External | performed at [facility] | | LAB | | | | [address];[place] | | | | | | [address] | | | | + + + + + + | AST | 37Comment: Testing | 10 - 45 U/L | EXTERNAL | | | | performed at [facility] | | LAB | | | | [address];[place] | | | | | | [address] | | | | + + + + + + | ALT | 37Comment: Testing | 10 - 65 U/L | EXTERNAL | | | | performed at [facility] | | LAB | | | | [address];[place], [place] | | | | | | [address] | | | | + + + [...] | | | | | | at [facility] [facility] | | | | | | Blvd;[place] [address] | | | | + + + [...]
--- OUTSIDE RECORDS SUMMARY | ~2019-08-24 | XMS | Clinical Summary ---
Demographics + + + | Address | [address] | | | [place] [address] | + + + | Home Phone | | + + + | Preferred Language | Unknown | + + + | Marital Status | Single | + + + | Jewish Affiliation [...] Team Providers + +------+ + | Care Enrollment Consultant Name | Role | Phone | + +------+ + PCP | Unavailable | + +------+ + Source Comments BATSHEVA is fully live on both [facility] Ambulatory and [facility] InPatient.[facility] Allergies + + + + [...] | | | + +--------+ +--------+-------+---------+--------+ | [facility] | | xxxx | Effect | [...] | 1961 | [phone] | [place] [address] | | | ryan | | | 0 (Home) | | + +--------+ +--------+ + + | Astrid Sánchez | Agency | Self | [birth year] | [address] | | [place] | | | 1961 | [phone] | [place] [address] | | | | | | 0 (Home) | | + +--------+ +--------+ + +
--- OUTSIDE RECORDS SUMMARY | ~2019-08-24 | XMS | Encounter Summary ---
Demographics + + + | Address | [address] | | | [place] [address] | + + + | Home Phone | | + + + | Preferred Language | Unknown | + + + | Marital Status | | + + + | Advent Affiliation | Unknown | + + + [...] Team Providers + +------+ + | Care Actuarial Director Name | Role | Phone | + +------+ + | Mason Oliveira DO | PCP | | + +------+ + Encounter Details +--------+ + + + + | Date | Type | Department | Care Team | Description | +--------+ + + + + | 09/11/ | Orders Only | [facility] | Conversion | | | 2009 | | CONVERSION | Transaction, | | | | | INTERFACES | Provider Unknown | | | | | [phone] | [phone] | | | | | | | [...]
--- OUTSIDE RECORDS SUMMARY | ~2019-08-24 | XMS | Encounter Summary ---
Demographics + + + | Address | [address] | | | [place] [address] | + + + | Home Phone | | + + + | Preferred Language | Unknown | + + + | Marital Status | Single | + + + | Buddhist Affiliation [...] Team Providers + +------+ + | Care Faucets Assembler Name | Role | Phone | [...] Torres | | | | | | [facility] and | | | | | | Counseling [address] | | | | | | [address] [place], | | | | | | [place] [address] | | | | | | [phone] | | | | | | | [...] | | + +---------+ + + | [facility] DEPARTMENT OF | | | | | [...] | | + +---------+ + + | [facility] DEPARTMENT OF | | | | | [...] | | + +---------+ + + | [facility] DEPARTMENT OF | | | | | [...] | | + +---------+ + + | [facility] DEPARTMENT OF | | | | | [...]
--- OUTSIDE RECORDS SUMMARY | ~2019-08-24 | XMS | Encounter Summary ---
Demographics + + + | Address | [address] | | | [place] [address] | + + + | Home Phone [...] Author + + + | Author | [facility] | + + + | Organization | [facility] | + + + | Address [...] Team Providers + +------+ + | Care Security Researcher Name | Role | Phone | + +------+ + PCP | Unavailable | + +------+ + Encounter Details +--------+ + + + + | Date | Type | Department | Care Team | Description | +--------+ + + + + | 12/17/ | Abstract | [facility] | Azeem Dietrich | | | 2011 | | [place] [address] [address] | [address] | | | | | [address] | [place], [place] | | | | | Mailcode: OC8D | [address] | | | | | [facility] | [phone] | | | | | and [address], | | | | | | [address] | | | | | | [place], [place] | | | | | | [address] | | | | | | [phone] | | | +--------+ + + + [...]
--- OUTSIDE RECORDS SUMMARY | ~2019-08-24 | XMS | Encounter Summary ---
Demographics + + + | Address | [address] | | | [place] [address] | + + + | Home Phone | | + + + | Preferred Language | Unknown | + + + | Marital Status | | + + + | Spiritism Affiliation | Unknown | + + + [...] Team Providers + +------+ + | Care Production Gear Cutter Name | Role | Phone | + +------+ + PCP | Unavailable | + +------+ + Encounter Details +--------+ + + + + | Date | Type | Department | Care Team | Description | +--------+ + + + + | 08/30/ | [facility] | | | 2008 | Encounter | [facility] | | | | | | CONV DEPT [address] | | | | | | [place], | | | | | | [place] [address] | | | | | | [phone] | | | +--------+ + + + [...]
--- OUTSIDE RECORDS SUMMARY | ~2019-08-24 | XMS | Clinical Summary ---
Demographics + + + | Address | [address] | | | [place] [address] | + + + | Home Phone | | + + + | Preferred Language | Unknown | + + + | Marital Status | | + + + | Quaker Affiliation | Unknown | + + + | Race | Unknown | + + + | Ethnic Group | Unknown | + + + Author + + + | Author | [facility] | | | and Olegarioana | + + + | Organization | [facility] | | [...] Team Providers + +------+ + | Care Workers' Compensation Mediator Name | Role | Phone | + [...] fluids, | | vancomycin, and cefepime at [facility], now hemodynamically | | stable- Has urinary source, so will treat with IV ceftriaxone and | | await cultures from [place] | + + + + + + [...] planning to get him into SNF on [facility] | | reservation | + + [...] Herrmann, | | | | | | AUTO PARTS SALESPERSON | | +--------+ + + + + [...] encounter | | | | | | ([facility]); Other closed | | | | | [...] encounter | | | | | | ([facility]); Closed | | | | | | [...] MCCAIN | | | 223.58 | | [id number]: Qty: 1 | | Ulna | SYNTHES - | | | 1 / / | | on 06/19/2019 by Kwabean, | | | SYNT | | | | | MD Tony at [facility] | | | | | | | | [facility] | | | | | | | + +-------+--------+ +--------+--------+--------+ | Screw Crtx Slf-Tp Ss 3.5x20mm | Screw | Right: | JJHCS DEPUY | | | 204.82 | | - [id number]: Qty: | | Ulna | SYNTHES - | | | / / | | 3 on 06/19/2019 by Kwabena, | | | SYNT | | | | | MD Tony at [facility] | | | | | | | | [facility] | | | | | | | + +-------+--------+ +--------+--------+--------+ | Screw Crtx Slf-Tp Ss 3.5x22mm | Screw | Right: | JJHCS DEPUY | | | 204.82 | | - [id number]: Qty: | | Ulna | SYNTHES - | | | 2 / / | | 2 on 06/19/2019 by Kwabena, | | | SYNT | | | | | MD Tony at [facility] | | | | | | | | [facility] | | | | | | | + +-------+--------+ +--------+--------+--------+ | Screw Crtx Slf-Tp Ss 3.5x24mm | Screw | Right: | JJHCS DEPUY | | | 204.82 | | - [id number]: Qty: | | Ulna | SYNTHES - | | | 4 / / | | 1 on 06/19/2019 by Kwabena, | | | SYNT | | | | | MD Tony at [facility] | | | | | | | | [facility] | | | | | | | + +-------+--------+ +--------+--------+--------+ | Screw Crtx Slf-Tp 2.7x18mm - | Screw | Right: | ChristinaJS DEP | | | 202.81 | | [id number]: Qty: 1 | | Ulna | SYNTHES - | | | 8 / / | | on 06/19/2019 by Kwabena, | | | SYNT | | | | | MD Tony at [facility] | | | | | | | | [facility] | | | | | | | + +-------+--------+ +--------+--------+--------+ | Duragen 5"X7" - | | | NA UNKNOWN | | 01/18/ | [id number] | | [id number]: Qty: 1 on | | | | | 2016 | / | | 10/11/2014 by Arlette, | | | | | | /[id number] | | Anthony HENRIQUEZ MD | | | | | | 21 | + +-------+--------+ +--------+--------+--------+ | Algrft Dura Durgn Mtrx 3x3 | | Right: | [employer] | | 08/27/ | ID-330 | | Bx5 - [id number]: Qty: | | Brain | NEUROSCIENC | | 2016 | 5 / | | 1 on 05/28/2015 by Earl, | | | FRANCK - INNE | | | /[id number] | | Gloria Baumann MD | | | | | | 52 | + +-------+--------+ +--------+--------+--------+ | Mesh Grid Hcd 11x7.5 | | Right: | [employer] - | | | 015-20 | | - - | | Brain | MEDT | | | -4 / | | [id number]: Qty: 1 on | | | | | | / | | 05/28/2015 by Gloria Elliott | | | | | | | | L, MD | | | | | | | + +-------+--------+ +--------+--------+--------+ | Plate Dbl Y 3h 5mm - | | Right: | [employer] - | | | 015- | | [id number]: Qty: 2 on | | Brain | MEDT | | | 7 / | | 05/28/2015 by Gloria Elliott | | | | | | /[id number] | | L, MD | | | | | | 98 | + +-------+--------+ +--------+--------+--------+ | Screw S/Tap 1.6x4.0 - | | Right: | [employer] - | | | [id number] | | [id number]: Qty: 14 on | | Brain | MEDT | | | 0 / / | | 05/28/2015 by Gloria Elliott | | | | | | | | L, MD | | | | | | | + +-------+--------+ +--------+--------+--------+ | Plate Dogbone 8mm - | | Right: | [employer] - | | | 015-04 | | [id number]: Qty: 1 on | | Brain | MEDT | | | 2 / | | 05/28/2015 by Gloria Elliott | | | | | | /[id number] | | LMD | | | | | | 58 | + +-------+--------+ +--------+--------+--------+ | Screw S/Tap 1.6x4.0 - | | | [employer] - | | | [id number] | | [id number]: Qty: 8 on | | | MEDT | | | 0 | | 05/29/2015 by Gloria Elliott | | | | | | /[id number] | | L, MD | | | | | | 40 / | + +-------+--------+ +--------+--------+--------+ | Algrft Dura Durgn Mtrx 3x3 | | | [employer] | | 08/20/ | ID-330 | | Bx5 - [id number]: Qty: | | | NEUROSCIENC | | 2016 | 5 | | 1 on 05/29/2015 by Earl, | | | FRANCK - INNE | | | /[id number] | | Gloria Baumann MD | | | | | | 5 | | | | | | | | /[id number] | | | | | | | [...] J?MRN: | | | | | | [id number] | | | [id number] | | | riteri | | | [...] | | | St. | | | [place] | | | y | | | [...] | | | St. | | | [place] | | | y | | | [...] | | | St. | | | [place] | | | y | | | [...] | | | St. | | | [place] | | | y H. | | [...] | | | St. | | | [place] | | | y H. | | [...] | | | POC | Performed by [facility] [address] | | [place] | | | | [address] [place], [place] | | HEART | | | | [address] | | MEDICAL | | | | [...] + + | [facility] | [address] | [place] [address] | | | [facility] | | | | [...] + + | Performing | Address | City/State/Unm Cancer Centercode | Phone Number | | Organization [...] + + | Performing | Address | City/State/Unm Cancer Centercode | Phone Number | | Organization [...] | | | | | | [facility] | | | | | | [facility] | | | | | | [facility] | | | | | | [facility] | | | | | | [facility] | | + + + + + + | Rh Type | PositiveComment: Patient | | REFERENCE | | | | is remote crossmatch | | [facility] | | | | eligible | | [...] + + + | Specimen Expiration Date: [id number] | REFERENCE LAB | | | [facility] [place] | | | [facility] | | [facility] | + + + + + + + + | Performing | Address | City/State/Zipcode | Phone Number | | Organization | | | | + + + + + | REFERENCE LAB | [address] | [place] [address] | [phone] | | [facility] | | | | | [facility] [...] | TRACEMASTER | | Duration:148 msP Horizontal Keymar:21 degP Front Keymar:46 degQ Onset:508 | | | msQRSD Interval:128 msQT Interval:356 msQTcB:443 msQTcF:412 msQRS | | | Horizontal Keymar:88 degQRS Keymar:-25 degI-40 Horizontal Keymar:53 degI-40 | | | Front Keymar:8 degT-40 Horizontal Keymar: degT-40 Front Keymar:178 degT | | | Horizontal Keymar:28 degT Wave Keymar:14 degS-T Horizontal Keymar:25 degS-T | | | Front Keymar:19 degSeverity:- ABNORMAL ECG -INTERP:SINUS | | | RHYTHMINTERP:RIGHT BUNDLE BRANCH BLOCKElectronically signed by: RASHEED, | | | LARRY Hopkins 06-19-2019 08:30:08 | | |QTcB:443 ms | | |QTcF:412 ms | | |QRS Horizontal Keymar:88 deg | | |QRS Keymar:-25 deg | | |I-40 Horizontal Keymar:53 deg | | |I-40 Front Keymar:8 deg | | |T-40 Horizontal Keymar: deg | | |T-40 Front Keymar:178 deg | | |T Horizontal Keymar:28 deg | | |T Wave Keymar:14 deg | | |S-T Horizontal Keymar:25 deg | | |S-T Front Keymar:19 deg | | |Severity:- ABNORMAL ECG - | | |INTERP:SINUS RHYTHM | | |INTERP:RIGHT BUNDLE BRANCH BLOCK | | |Electronically signed by: LARRY IQBAL 06-19-2019 08:30:08 | | + + + + + + + + | Performing | Address | City/State/Zipcode | Phone Number | | Organization | | | | + + + + + | [facility] | [address] | [place] [address] | [phone] | + + + + + CBC [...] PROVIDE NCE | | | | by [facility] [address], | | [place] | | | | [place] [address] | | HEART | | | |Performed by [facility] [address], [place] [address] | | MEDICAL | | | | [...] + + | [facility] | [address] | [place] [address] | | | [facility] | | | | [...] | | LABORATORY | | | | [facility] [address] [place], | | [place] | | | | [place] [address] | | | | + + + + + + + + | Specimen | + + | Blood specimen | | (specimen) | + + + + + + + | Performing | Address | City/State/Zipcode | Phone Number | | Organization | | | | + + + + + | [facility] | [address] | [place] [address] | | | [facility] | | | | | [...] - 1.030 | [facility] | | | [place] | | | [place]CRED | | | [...] MAG[facility] | | | | Performed by [facility] [address] | | [place] | | | | [address], [place] | | HEART | | | | [address] | | MEDICAL | | | | [...] | [address] | [place] [address] | | | [facility] | | | | [...] + + | Performing | Address | City/State/Unm Cancer Centercode | Phone Number | | Organization [...] | | | | | | [facility] | | | | | | [facility] | | | | | | [facility] | | | | | | [facility] | | | | | | [facility] | | + + + + + + | Rh Type | Positive | | REFERENCE | | | | | | [facility] | | | | | | [facility] | | | | | | [facility] | | | | | | [facility] | | | | | | [facility] | | + + + + + + | Antibody | Negative | | REFERENCE | | | Screen | | | [facility] | | | | | | [place] [...] + + + | Specimen Expiration Date: [id number] | REFERENCE LAB | | | [facility] | | | [facility] | | | [facility] | + + + + + + + + | Performing | Address | City/State/Zipcode | Phone Number | | Organization | | | | + + + + + | REFERENCE LAB | [address] | [place], [place] | [phone] | | [facility] | | | | | [facility] [...] | [facility] | | | | by [facility] [address], | | [place] | | | | [place], [place] | | HEART | | | |Performed by [facility] [address] [place] [address] | | MEDICAL | | | | [...] SACRED | [address] | [place] [address] | | | [facility] | | | | [...] | | | | | seconds.Performed by [facility] | | | | | | [address], | | | | | | [place] [address] | | | | + + + + + + + + | Specimen | + + | Blood specimen | | (specimen) | + + + + + + + | Performing | Address | City/State/Zipcode | Phone Number | | Organization | | | | + + + + + | [facility] | [address] | [place] [address] | | | [facility] | | | | [...] CENTER | | | | 3.5Performed by [facility] [address] | | LABORATORY | | | | [address], [place] | | [place] | | | | [id number] | | | | + + + + + + + + | Specimen | + + | Blood specimen | | (specimen) | + + + + + + + | Performing | Address | City/State/Zipcode | Phone Number | | Organization | | | | + + + + + | [facility] | [address] [place] | [place] [address] | | | [facility] | | | | [...] | | | Venous | Performed by [facility] [address] | mmol/L | [place]ED | | | | [address] [place], [place] | | HEART | | | | [address] | | MEDICAL | | | | [...] + | [facility] | [address] | [place] [address] | | | [facility] | | | | [...] | [facility] | | | SERUM/PLASM | [facility] [address], | | SACRED | | | A | [place] [address] | | HEART | | | |Performed by [facility] [address], [place] [address] | | MEDICAL | | | | [...] SACRED | [address] | [place] [address] | | | [facility] | | | | [...] | | LABORATORY | | | | [facility] [address] [place], | | [place] | | | | [place] [address] | | | | + + + + + + + + | Specimen | + + | Blood specimen | | (specimen) | + + + + + + + | Performing | Address | City/State/Zipcode | Phone Number | | Organization | | | | + + + + + | [facility] | [address] | [place] [address] | | | [facility] | | | | [...] +---------+--------+ | [place] | MEDICA | [id number] | 09/20/19 | [phone] | | Medica | | | [place] | | 18-Pre | 2 | | id | | | PLUS | | sent | | | | + +--------+ +--------+ +---------+--------+ | [facility] | IHS | [id number] | 03/21/19 | | | Indemn | [...] Person | Self | [birth year] | [address] | | [address] [address] | al/Fam | | 1961 | [phone] | [place], | | | [place] | | | [address] (Home) | [place] [address] | + +--------+ +--------+ + + Advance Directives + + + + + | Type | Date Recorded | Patient | Explanation | | | | Logistics Technician | | + + + + + | Power of | | | | | Superannuation Funds Manager | | | | + + + [...]
--- OUTSIDE RECORDS SUMMARY | ~2019-08-24 | XMS | Encounter Summary ---
Demographics + + + | Address | [address] | | | [place] [address] | + + + | Home Phone | | + + + | Preferred Language | Unknown | + + + | Marital Status | Single | + + + | Sabianism Affiliation | Unknown | + + + | Race | White | + + + | Ethnic Group | Not or | + + + Author + + + | Author | [facility] | + + + | Organization | [facility] | + + + | [...] Team Providers + +------+ + | Care Church History Professor Name | Role | Phone | [...] + + | 09/23/ | Emergency | [facility] Emergency | | | | 2009 | | Department [address] | | | | [address] | | | | | | [facility] | | | | | | [place], [place] | | | | | | [address] | | | | | | [phone] | | | +--------+ + + + [...]
--- OUTSIDE RECORDS SUMMARY | ~2019-08-24 | XMS | Clinical Summary ---
Demographics + + + | Address | [address] | | | [place] [address] | + + + | Home Phone [...] Team Providers + +------+ + | Care Membership Correspondent Name | Role | Phone | + +------+ + PCP | Unavailable | + +------+ + Source Comments BATSHEVA is fully live on both [facility] and [facility] InPatient.[facility] Allergies + + + + + [...] | | | + +--------+ +--------+-------+---------+--------+ | [facility] | | xxxx | Effect | [...] | 1961 | [phone] | [place] [address] | | | ryan | | | 0 (Home) | | + +--------+ +--------+ + + | Astrid Sácnhez | Agency | Self | [birth year] | [address] | | rachelle Ring | | | 1961 | [phone] | [place] [address] | | | | | | 0 (Home) | | + +--------+ +--------+ + +
--- OUTSIDE RECORDS SUMMARY | ~2019-08-24 | XMS | Encounter Summary ---
Demographics + + + | Address | [address] | | | [place] [address] | + + + | Home Phone [...] Team Providers + +------+ + | Care Commercial Food Instructor Name | Role | Phone | [...]
--- OUTSIDE RECORDS SUMMARY | ~2019-08-24 | XMS | Encounter Summary ---
Demographics + + + | Address | [address] | | | [place] [address] | + + + | Home Phone [...] | [facility] | | | and [place] | + [...] Team Providers + +------+ + | Care Carcass Washer Name | Role | Phone | + +------+ + PCP | Unavailable | + +------+ + Encounter Details +--------+ + + + + | Date | Type | Department | Care Team | Description | +--------+ + + + + | 07/18/ | Hospital | [facility] | Conversion | Intracranial injury | | 2015 | Encounter | [facility] [address] | Transaction, | of other and | | | | [address] | Provider Unknown | unspecified nature, | | | | [place], [place] | | without mention of | | | | [address] | (Fax) | open intracranial | | | | [phone] | | wound, unspecified | | | [...]
--- OUTSIDE RECORDS SUMMARY | ~2019-08-24 | XMS | Encounter Summary ---
Demographics + + + | Address | [address] | | | [place] [address] | + + + | Home Phone | | + + + | Preferred Language | Unknown | + + + | Marital Status | Single | + + + | Hoahaoism Affiliation | Unknown | + + + | Race | White | + + + | Ethnic Group | Not or | + + + Author + + + | Author | [facility] | + + + | Organization | [facility] | + + + | [...] Team Providers + +------+ + | Care Salon Coordinator Name | Role | Phone | [...] | 2009 | on | Center at [facility] [address] | [address], [address] | ([place] 05/30/2010 no | | | | [address] | Ave [place], [place] | HCC) | | | | Mailcode: OCD | [address] | | | | | [facility] | [phone] | | | | | and Healing, | | | | | | [address] | | | | | | [place], [place] | | | | | | [address] | | | | | | [phone] | | | +--------+ + + + [...]
--- OUTSIDE RECORDS SUMMARY | ~2019-08-24 | XMS | Encounter Summary ---
Demographics + + + | Address | [address] | | | [place] [address] | + + + | Home Phone [...] Team Providers + +------+ + | Care Violin Teacher Name | Role | Phone | + +------+ + PCP | Unavailable | + +------+ + Encounter Details +--------+ + + + + | Date | Type | Department | Care Team | Description | +--------+ + + + + | 02/17/ | Results | [facility] | Wade Villalta MD | | | 2002 | Only | & Rehabilitation | [address] | | | | | [address] | [address] | | | | | [place] Mailcode: | [place], [place] | | | | | [address] | [address] | | | | | [place], [place] | [phone] | | | | | [address] | | | | | | [phone] | | | +--------+ + + + [...]
--- OUTSIDE RECORDS SUMMARY | ~2019-08-24 | XMS | Encounter Summary ---
Demographics + + + | Address | [address] | | | [place] [address] | + + + | Home Phone | | + + + | Preferred Language | Unknown | + + + | Marital Status | | + + + | Latter Day Affiliation | Unknown | + + + [...] Team Providers + +------+ + | Care Entry Level Machine Operator Name | Role | Phone | + +------+ + PCP | Unavailable | + +------+ + Encounter Details +--------+ + + + + | Date | Type | Department | Care Team | Description | +--------+ + + + + | 11/22/ | Hospital | [facility] | Conversion | Headache(784.0) | | 2015 | Encounter | CONVERSION [address] | Transaction, | | | | | [address] | Provider Unknown | | | | | [place], [place] | | | | | | [address] | (Fax) | | | | | [phone] | | | +--------+ + + + [...]
--- OUTSIDE RECORDS SUMMARY | ~2019-08-24 | XMS | Encounter Summary ---
Demographics + + + | Address | [address] | | | [place] [address] | + + + | Home Phone | | + + + | Preferred Language | Unknown | + + + | Marital Status | | + + + | Mandaeism Affiliation | Unknown | + + + | Race | Unknown | + + + | Ethnic Group | Unknown | + + + Author + + + | Author | [facility] | | | and [place] | + + + | Organization | [facility] | | | [...] Providers + +------+ + | Care Director Of Income Tax Name | Role | Phone | + +------+ + PCP | Unavailable | + +------+ + Encounter Details +--------+ + + + + | Date | Type | Department | Care Team | Description | +--------+ + + + + | 07/18/ | Hospital | [facility] | Conversion | Intracranial injury | | 2015 | Encounter | [facility] [address] | Transaction, | of other and | | | | [address] | Provider Unknown | unspecified nature, | | | | [place], [place] | | without mention of | | | | [address] | (Fax) | open intracranial | | | | [phone] | | wound, unspecified | | | [...]
--- OUTSIDE RECORDS SUMMARY | ~2019-08-24 | XMS | Encounter Summary ---
Demographics + + + | Address | [address] | | | [place] [address] | + + + | Home Phone [...] Team Providers + +------+ + | Care Ebd Teacher Name | Role | Phone | + +------+ + PCP | Unavailable | + +------+ + Encounter Details +--------+ + + + + | Date | Type | Department | Care Team | Description | +--------+ + + + + | 10/11/ | Hospital | [facility] | Conversion | Headache(784.0) | | 2015 | Encounter | CONVERSION [address] | Transaction, | | | | | [address] | Provider Unknown | | | | | [place], [place] | [phone] | | | | | [address] | | | | | | [phone] | | | +--------+ + + + [...]
--- OUTSIDE RECORDS SUMMARY | ~2019-08-24 | XMS | Encounter Summary ---
Demographics + + + | Address | [address] | | | [place] [address] | + + + | Home Phone [...] Providers + +------+ + | Care Manager Foreign Name | Role | Phone | + [...] Provider Unknown | | | | | [phone] | [phone] | | | | | | | [...]
--- OUTSIDE RECORDS SUMMARY | ~2019-08-24 | XMS | Encounter Summary ---
Demographics + + + | Address | [address] | | | [place] [address] | + + + | Home Phone [...] Team Providers + +------+ + | Care Flatbed Owner Operator Name | Role | Phone | [...] Ave | | | | | | [facility] [place] | Mailcode: | | | | | | [address] | [facility] | | | | | | Phone: | for Health | | | | | | [phone] | and Healing, | | | | | | Fax: | [address] | | | | | | [phone] | [place], [place] | | | | | | | [address] | | | | | | | Phone: | | | | | | | [phone] | | | | | | | Fax: | | | | | | | [phone] | +--------+--------+ + + + + Encounter [...] | | [address] | Ave [place], [place] | (HCC) | | | | Mailcode: OC8D | [address] | | | | | [facility] | [phone] | | | | | and [address], | | | | | | [address] | | | | | | [place], [place] | | | | | | [address] | | | | | | [phone] | | | +--------+---------+ + + + [...] but it sounds like he got quite juna litated last year, was in a wheelchair, [...] [facility] | REGIONAL | | [place] [address] [facility] | LABORATORY | | [place] [address] | | + + + + + + + + | Performing | Address | City/State/Zipcode | Phone Number | | Organization | | | | + + + + + | [facility] | [address] | [place] [address] | | | LABORATORY | | | [...] Hospital, | | | | | | [place], [place]. | | | | + + + + + + + + | Specimen | + + | Blood - Blood | + + + + + | Narrative | Performed At | + + + | [facility] | [facility] | | Permanente [address] | REGIONAL | | [place] [address] | LABORATORY | + + + + + + + + | Performing | Address | City/State/Zipcode | Phone Number | | Organization | | | | + + + + + | [facility] | [address] | [place] [address] | | | LABORATORY | | | [...] by: | | | | | | [facility] | | | | | | Services [address] [place] [address] | | | | | | [place] | | | | | | [address] | | | | + + + + + + + + | Specimen | + + | Urine - Urine | + + + + + + + | Performing | Address | City/State/Zipcode | Phone Number | | Organization | | | | + + + + + | [facility] | [address] | [place], [place] | | | UNIV PTH - MANUAL | | [address] | | + + + + + [...] [facility] | [facility] | | [place] [address] | REGIONAL | | [place] [address] | LABORATORY | + + + + + + + + | Performing | Address | City/State/Zipcode | Phone Number | | Organization | | | | + + + + + | [facility] | [address] | [place] [address] | | | LABORATORY | | | [...] | [facility] | | [place] [address] [facility] | REGIONAL | | [place] [address] | LABORATORY | + + + + + + + + | Performing | Address | City/State/Zipcode | Phone Number | | Organization | | | | + + + + + | [facility] | [address] | [place] [address] | | | LABORATORY | | | [...] At | + + + | [facility] | [facility] | | [place] [address] [facility] | REGIONAL | | [place] [address] | LABORATORY | + + + + + + + + | Performing | Address | City/State/Zipcode | Phone Number | | Organization | | | | + + + + + | [facility] | [address] | [place] [address] | | | LABORATORY | | | [...] by | | | | | | [employer], | | | | | | | | | | | | [address] [facility] | | | | | | [place] [address] | | | | | | [phone] | | | | | | | | | | | | [email or web address], | | | | | | Magui [...] [facility] | [address] | [place], [place] | | | UNIV PTH - INTFC | | [address] | | + + + + + [...] At | + + + | [facility] | [facility] | | [place] [address] [address] [facility] | DEPARTMENT OF | | [place] [address] | PATHOLOGY | + + + + + + + + | Performing | Address | City/State/Zipcode | Phone Number | | Organization | | | | + + + + + | [facility] DEPARTMENT OF | [address] | [place] [address] | | | PATHOLOGY | [address] [...] | + + + + + | [facility] DEPARTMENT OF | [address] | [place] [address] | | | PATHOLOGY | [address] | | | + + + + + INR (03/13/2010 9:50 AM PDT) + + + + + + | Component | Value | Ref Range | Performed | Pathologist | | | | | At | Signature | + + + + + + | INR | 1.19Comment: | 0.90 - 1.20 INR | [facility] | | | | INR Therapeutic [...] + + + + | [facility] | [address] | [place] [address] | | | PATHOLOGY | [address] [...] | | | DEPARTMENT | | | [place] | | | OF | | | [...] + + + + | [facility] | [address] | [place] [address] | | | PATHOLOGY | [address] [...]
--- OUTSIDE RECORDS SUMMARY | ~2019-08-24 | XMS | Encounter Summary ---
Demographics + + + | Address | [address] | | | [place] [address] | + + + | Home Phone | | + + + | Preferred Language | Unknown | + + + | Marital Status | | + + + | Yazdanism Affiliation | Unknown | + + + | Race | Unknown | + + + | Ethnic Group | Unknown | + + + Author + + + | Author | [facility] | | | and [place] | + + + | Organization | [facility] | | | [...] Team Providers + +------+ + | Care Wanigan Clerk Name | Role | Phone | [...] + + | 07/06/ | Telephone | [place] | Tony Yuan, | Other (cancelling | | 2019 | | Orthopedics [address] | appointment ) | | | | [address] | [facility] [address] | | | | | [place], [place] | [place] [address] | | | | | [address] | [phone] | | | | | [phone] | | | +--------+ + + + [...]
--- OUTSIDE RECORDS SUMMARY | ~2019-08-24 | XMS | Encounter Summary ---
Demographics + + + | Address | [address] | | | [place] [address] | + + + | Home Phone | | + + + | Preferred Language | Unknown | + + + | Marital Status | | + + + | Sikh Affiliation [...] Team Providers + +------+ + | Care Cinema Operator Name | Role | Phone | [...] | OP [address] | [place] [address] | | | | | [place] | [phone] | | | | | [address] | | | | | | [phone] | Ha Herrmann, | | | | | | CUSTOMER SERVICE REPRESENTATIVE TELLER [address] | | | | | | [place] [address] | | | | | | [phone] | | | | | | | [...] +----+---+ + + | | 0 | [place] | | | | 9 | 43-degrees [...] +----+---+ + + | | 1 | [place] off | | | | 0 | [...] 20 gauge; other (see comments); | | Project Development Director | | | lost patency; 06/22/19; 1003 [...]
--- OUTSIDE RECORDS SUMMARY | ~2019-08-24 | XMS | Encounter Summary ---
Demographics + + + | Address | [address] | | | [place] [address] | + + + | Home Phone [...] Author | [facility] | + + + | Organization | [facility] | + + + | Address | [...] Team Providers + +------+ + | Care Corporate Financial Analyst Name | Role | Phone | + +------+ + | Anny Ennis DO | PCP | Unavailable | + +------+ + Encounter Details +--------+------+ + + + | Date | Type | Department | Care Team | Description | +--------+------+ + + + | 03/13/ | Lab | Laboratory at [facility] | | Cirrhosis (HCC) | | 2009 | | [address] | | | | | | [place], [place] | | | | | | [address] | | | | | | [phone] | | | +--------+------+ + + + [...] [facility] | [facility] | | [place] [address] | LABORATORY | | [place] [address] | | + + + + + + + + | Performing | Address | City/State/Zipcode | Phone Number | | Organization | | | | + + + + + | [facility] | [address] | [place] [address] | | | LABORATORY | | | [...] | LABORATORY | | | | at [facility], | | | | | | [place], [place]. | | | | + + + + + + + + | Specimen | + + | Blood - Blood | + + + + + | Narrative | Performed At | + + + | [facility] | [facility] | | [place] [address] [facility] [facility] | REGIONAL | | [place] [address] | LABORATORY | + + + + + + + + | Performing | Address | City/State/Zipcode | Phone Number | | Organization | | | | + + + + + | [facility] | [address] | [place] [address] | | | LABORATORY | | | [...] | | | | | validated by [facility]. | | | | | | Test performed by: | | | | | | [facility] | | | | | | Services [address] | | | | | | [place] | | | | | | [address] | | | | + + + + + + + + | Specimen | + + | Urine - Urine | + + + + + + + | Performing | Address | City/State/Zipcode | Phone Number | | Organization | | | | + + + + + | [facility] | [address] | [place], [place] | | | UNIV PTH - MANUAL | | [address] | | + + + + + [...] At | + + + | [facility] | [facility] | | [place] [address] | REGIONAL | | [place] [address] | LABORATORY | + + + + + + + + | Performing | Address | City/State/Zipcode | Phone Number | | Organization | | | | + + + + + | [facility] | [address] | [place] [address] | | | LABORATORY | | | [...] At | + + + | [facility] ([facility]) Daryn | [place] | | [place] [address] [place] [facility] | [facility] | | [place] [address] | LABORATORY | + + + + + + + + | Performing | Address | City/State/Zipcode | Phone Number | | Organization | | | | + + + + + | [facility] | [address] | [place] [address] | | | LABORATORY | | | [...] At | + + + | [facility]) [facility] | [place] | | [place] [address] | REGIONAL | | [place] [address] | LABORATORY | + + + + + + + + | Performing | Address | City/State/Zipcode | Phone Number | | Organization | | | | + + + + + | [facility] | [address] | [place] [address] | | | LABORATORY | | | [...] by | | | | | | [place], | | | | | | | | | | | | [address] | | | | | | [place] [address] | | | | | | [phone] | | | | | | | | | | | | [email or web address], | | | | | | Magui [...] [facility] | [address] | [place], [place] | | | UNIV PTH - INTFC | | [address] | | + + + + + [...] | + + + | [facility] ([facility]) Daryn | [place] | | [place] [address] [facility] | DEPARTMENT | | [place] [address] | PATHOLOGY | + + + + + + + + | Performing | Address | City/State/Zipcode | Phone Number | | Organization | | | | + + + + + | [facility] DEPARTMENT OF | [address] | [place] [address] | | | PATHOLOGY | [address] [...] | + + + + + | [facility] DEPARTMENT OF | [address] | [place] [address] | | | PATHOLOGY | [address] | | | + + + + + INR (03/13/2010 9:50 AM PDT) + + + + + + | Component | Value | Ref Range | Performed | Pathologist | | | | | At | Signature | + + + + + + | INR | 1.19Comment: | 0.90 - 1.20 INR | [facility] | | | | INR Therapeutic ranges [...] | + + + + + | [facility] | [address] | [place] [address] | | | PATHOLOGY | [address] [...] | | | DEPARTMENT | | | SLOVENIAN | | | OF | | | [...] | + + + + + | [facility] | [address] | [place] [address] | | | PATHOLOGY | [address] | | | + + + + + documented in this encounter Visit Diagnoses + + | Diagnosis | + + | 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
--- OUTSIDE RECORDS SUMMARY | ~2019-08-24 | XMS | Encounter Summary ---
Demographics + + + | Address | [address] | | | [place] [address] | + + + | Home Phone | | + + + | Preferred Language | Unknown | + + + | Marital Status | Single | + + + | Latter Day Affiliation | Unknown | + + + | Race | White | + + + | Ethnic Group | Not or | + + + Author + + + | Author | [facility] | + + + | Organization | [facility] | + + + | Address [...] Providers + +------+ + | Care Test Specialist Name | Role | Phone | [...] + + | 12/13/ | Documentati | Transplant | Kennedi Doyle | Liver Transplant | | 2009 | on | Coordinators [address] | Kuldeep, RN [address] | Referral ( review) | | | | [address] [facility] | [facility] | | | | | [place], [place] | [place], [place] | | | | | [address] | [address] | | | | | [phone] | | | +--------+ + + + [...]
--- OUTSIDE RECORDS SUMMARY | ~2019-08-24 | XMS | Encounter Summary ---
Demographics + + + | Address | [address] | | | [place] [address] | + + + | Home Phone | | + + + | Preferred Language | Unknown | + + + | Marital Status | Single | + + + | Roman Catholic Affiliation | Unknown | + + [...] Team Providers + +------+ + | Care Ultimate Hoops Trainer Name | Role | Phone | + +------+ + PCP | Unavailable | + +------+ + Encounter Details +--------+ + + + + | Date | Type | Department | Care Team | Description | +--------+ + + + + | 12/17/ | Abstract | [facility] | Azeem Dietrich | | | 2011 | | [place] [address] [address] | | | | [address] | [place], [place] | | | | | Mailcode: OC8D | [address] | | | | | [facility] | [phone] | | | | | and [address], | | | | | | [address] | | | | | | [place], [place] | | | | | | [address] | | | | | | [phone] | | | +--------+ + + + [...]
--- OUTSIDE RECORDS SUMMARY | ~2019-08-24 | XMS | Encounter Summary ---
Demographics + + + | Address | [address] | | | [place] [address] | + + + | Home Phone [...] Team Providers + +------+ + | Care Riding Silks Custodian Name | Role | Phone | [...] + + | 08/09/ | Hospital | [facility] | BeyRamiro stoll, | Alcoholism (HCC) | | 2015 - | Encounter | [facility] | [address] | (Primary Dx); | | | | [address] | [place] | Hypokalemia; | | 08/14/ | | [place], [place] [address] | [address] | Pyelonephritis; | | 2014 | | [phone] | [phone] | Sepsis, due to | | | | | | unspecified organism | | | | | | ([facility]); Falls, | | | | | | subsequent | | | | | | encounter; Sepsis, | | | | | | Gram negative ([facility]); | | | | | | Sepsis due to | | | | | | Escherichia coli (E. | | | | | | coli) ([facility]) | +--------+ + + + [...] West MD - 08/14/2015 10:35 AM PST [facility] DISCHARGE SUMMARY Pt. Name/Age/: Tony Ring [...] time of discharge. Patient discharged to SNF ([facility] in [place], [place]). Labs admission/discharge days: WBC 12.2 -> [...] He denies any other problems. Plans [facility] discharge back to [facility] today. Patient denies headache, fever, chills, [...] 2 weeks. Specialty: Family Medicine Contact information: [id number] [place] [address] Condition: Patient being discharged with condition improved. Diet: Regular Activity: as tolerated, but up with assistance only (high fall risk) Greater than 30 minutes were spent on discharge and coordination of post-hospital care. Electronically signed by: Marco Antonio West MD, 08/14/2015 10:35 [facility] documented in thi s encounter Discharge Instructions Instructions Marco Antonio West MD - 08/14/2015Regular diet. Activity as tolerated. Up with assistance only (high fall risk). Follow-up with PCP Mason Oliveira DO in 2 weeks. AttachmentsThe following attachments cannot be sent through Care Everywhere.PERIPHERALLY IN SERTED CENTRAL CATHETER (PICC), DISCHARGE INSTRUCTIONS FOR CARING FOR YOUR (TURKS AND [place] ISLANDER)document ed in this encounter Medications at Time [...] Brunson MD - 08/13/2015 4:59 PM PST [facility] PROGRESS NOTE Patient: Tony Sánchez : 1960: Age: 54 y.o. MedRec: [id number] Admission date: 08/09/2015 Hospital day # : [...] CKTOTAL No results for input(s): PHART, PO2ART, EVZ4XMP, KLY7WVO, BEART, Z8QLQJRU in the last 168 h ours. Point [...] stable 8) Dispo - likely back to [place] 08/14 if they can accept back Marco Antonio West MD 08/13/2015 16:59 [facility] asch, Nae Baumann MD - 08/12/2015 1:29 PM PST [facility] HOSPITALIST PROGRESS NOTE PATIENT NAME: Tony Sánchez AGE: 54 y.o. DATE OF SERVICE: 08/12/2015 SUBJECTIVE: No new concerns. Called [place], set up fax of results 08/11 final [...] this chart may have been created using 115 network disks voice recognition software. Occas ional wrong-word or "sound alike" substitutions may have occurred due to the inherent limita tions of voice recognition software. Please read chart carefully and recognize using context where these substitutions have occurred.Electronically signed by Nae Lala MD at 1:32 PM PSTRasch, Nae Baumann MD - 08/11/2015 4:25 PM PSTFormatting of this note mi ght be different from the original. [facility] HOSPITALIST PROGRESS NOTE PATIENT NAME: [...] display. Plan: continue empiric antibiotics, call from [facility] with blood cx + gram neg josefina. aw aiting final for treatment plan and discharge planning DATE/TIME: 08/11/2015 16:25 SIGNED: Nae Lala MD Portions of this chart may have been created using 115 network disks voice recognition software. Occas ional wrong-word or "sound alike" substitutions may have occurred due to the inherent limita tions of voice recognition software. Please read chart carefully and recognize using context where these substitutions have occurred.Electronically signed by Nae Lala MD at 4:27 PM [facility], Nae Baumann MD - 08/10/2015 3:00 PM PSTFormatting of this note mi ght be different from the original. [facility] HOSPITALIST PROGRESS NOTE PATIENT NAME: [...] display. Plan: continue empiric antibiotics, call from [facility] with blood cx + gram neg josefina. DATE/TIME: 08/10/2015 15:00 SIGNED: Nae Lala MD Portions of this chart may have been created using 115 network disks voice recognition software. Occas ional wrong-word or [...] [address] | [place] | [phone] | | [facility] | | [address] | | | - LABORATORY | | [...] [address] | [place] | [phone] | | [facility] | | [address] | | | - LABORATORY | | [...] mL/min/1.73m2 | [facility] | | | ETHIOPIAN | | | MEDICAL | | | [...] + | [facility] | [address] | [place] | [phone] | | [facility] | | [address] | | | - LABORATORY | | [...] [address] | [place] | [phone] | | [facility] | | [address] | | | - LABORATORY | | [...] | samples are screened | uIU/mL | [facility] | | | | using a 2nd [...] [address] | [place] | [phone] | | [facility] | | [address] | | | - LABORATORY | | [...] + | [facility] | [address] | [place] | [phone] | | [facility] | | [address] | | | - LABORATORY | | [...] [address] | [place] | [phone] | | [facility] | | [address] | | | - LABORATORY | | [...] [address] | [place] | [phone] | | [facility] | | [address] | | | - LABORATORY | | [...] [address] | [place] | [phone] | | [facility] | | [address] | | | - LABORATORY | | [...] + | [facility] | [address] | [place] | [phone] | | [facility] | | [address] | | | - LABORATORY | | [...] mL/min/1.73m2 | [facility] | | | ETHIOPIAN | RATE,ESTIMATED | | MEDICAL | | | | mL/min/1.58k0Oxsb than | | CENTER - | | [...] [address] | [place] | [phone] | | [facility] | | [address] | | | - LABORATORY | | [...] [address] | [place] | [phone] | | [facility] | | [address] | | | - LABORATORY | | [...] mL/min/1.73m2 | [facility] | | | ETHIOPIAN | RATE,ESTIMATED | | MEDICAL | | | | mL/min/1.47y5Lghs than | | CENTER - | | [...] + | [facility] | [address] | [place] | [phone] | | [facility] | | [address] | | | - LABORATORY | | [...] ST. | [address] | [place] | [phone] | | [facility] | | [address] | | | - LABORATORY | | [...] | mL/min/1.73m2 | NAT[facility] | | | ETHIOPIAN | RATE,ESTIMATED | | MEDICAL | | | | mL/min/1.59r5Kxzi than | | CENTER - | | [...] [address] | [place] | [phone] | | [facility] | | [address] | | | - LABORATORY | | [...] + | [facility] | [address] | [place] | [phone] | | [facility] | | [address] | | | - LABORATORY | | [...] mL/min/1.73m2 | [facility] | | | ETHIOPIAN | RATE,ESTIMATED | | MEDICAL | | | | mL/min/1.34k2Zogz than | | CENTER - | | [...] [address] | [place] | [phone] | | [facility] | | [address] | | | - LABORATORY | | [...] [address] | [place] | [phone] | | [facility] | | [address] | | | - LABORATORY | | [...] + | [facility] | [address] | [place] | [phone] | | [facility] | | [address] | | | - LABORATORY | | [...] - 1.030 | [facility] | | | [place] | | | [facility] | | [...] [address] | [place] | [phone] | | [facility] | | [address] | | | - LABORATORY | | [...] ST. | [address] | [place], [place] | [phone] | | [facility] | | [address] | | | - LABORATORY | | [...] [address] | [place] | [phone] | | [facility] | | [address] | | | - LABORATORY | | [...] + | [facility] | [address] | [place] | [phone] | | [facility] | | [address] | | | - LABORATORY | | [...] mL/min/1.73m2 | [facility] | | | ETHIOPIAN | RATE,ESTIMATED | | MEDICAL | | | | mL/min/1.12z9Zwoy than | | CENTER - | | [...] ST. | [address] | [place] | [phone] | | [facility] | | [address] | | | - LABORATORY | | [...] [address] | [place] | [phone] | | [facility] | | [address] | | | - LABORATORY | | | | + + + + + documented in this encounter Visit Diagnoses + + | Diagnosis | + + | Sepsis due to Escherichia coli (E. coli) ([facility]) - Primary Other septicemia due to | | gram-negative organism | + + | Alcoholism ([facility]) Other and unspecified alcohol dependence, [...] | | | | | | use [place] 10/325 if ordered. If | | | [...]
--- OUTSIDE RECORDS SUMMARY | ~2019-08-24 | XMS | Encounter Summary ---
Demographics + + + | Address | [address] | | | [place] [address] | + + + | Home Phone [...] Team Providers + +------+ + | Care Promotions Assistant Sales Marketing Name | Role | Phone | + [...] not | | | | [facility] | [facility] [address] | meet criteria) | | | | Rd [place], [place] | [place], [place] | | | | | [address] | [address] | | | | | [phone] | | | +--------+ + + + [...]
--- OUTSIDE RECORDS SUMMARY | ~2019-08-24 | XMS | Encounter Summary ---
Demographics + + + | Address | [address] | | | [place] [address] | + + + | Home Phone [...] | ECON | Unknown | | | [place] | | | | + + +---------+ + Care Team Providers + +------+ + | Care Federal Judge Name | Role | Phone | + [...] Ave | | | | | | [facility] [place] | Mailcode: | | | | | | [address] | [facility] | | | | | | Phone: | for Health | | | | | | [phone] | and Healing, | | | | | | Fax: | [address] | | | | | | [phone] | [place], [place] | | | | | | | [address] | | | | | | | Phone: | | | | | | | [phone] | | | | | | | Fax: | | | | | | | [phone] | +--------+--------+ + + + + Encounter [...] | | [address] | Ave [place], [place] | (HCC) | | | | Mailcode: [facility] | [address] | | | | | [facility] | [phone] | | | | | and [address], | | | | | | [address] | | | | | | [place], [place] | | | | | | [address] | | | | | | [phone] | | | +--------+---------+ + + + [...] [facility] | REGIONAL | | [place] [address] [facility] | LABORATORY | | [place] [address] | | + + + + + + + + | Performing | Address | City/State/Zipcode | Phone Number | | Organization | | | | + + + + + | [facility] | [address] | [place] [address] | | | LABORATORY | | | [...] Hospital, | | | | | | [place], [place]. | | | | + + + + + + + + | Specimen | + + | Blood - Blood | + + + + + | Narrative | Performed At | + + + | [facility] [facility] | [facility] | | [facility] [address] | REGIONAL | | [place] [address] | LABORATORY | + + + + + + + + | Performing | Address | City/State/Zipcode | Phone Number | | Organization | | | | + + + + + | [facility] | [address] | [place] [address] | | | LABORATORY | | | [...] by: | | | | | | [facility] | | | | | | Services [address] [place] [address] | | | | | | [place] | | | | | | [address] | | | | + + + + + + + + | Specimen | + + | Urine - Urine | + + + + + + + | Performing | Address | City/State/Zipcode | Phone Number | | Organization | | | | + + + + + | [facility] | [address] | [place], [place] | | | UNIV PTH - MANUAL | | [address] | | + + + + + [...] [facility] | [facility] | | [facility] [place] [address] | REGIONAL | | [place] [address] | LABORATORY | + + + + + + + + | Performing | Address | City/State/Zipcode | Phone Number | | Organization | | | | + + + + + | [facility] | [address] | [place] [address] | | | LABORATORY | | | [...] Way Lab) Munir | [facility] | | [place] [address] [address] [facility] | REGIONAL | | [place] [address] | LABORATORY | + + + + + + + + | Performing | Address | City/State/Zipcode | Phone Number | | Organization | | | | + + + + + | [facility] | [address] | [place] [address] | | | LABORATORY | | | [...] At | + + + | [facility] [facility]) [facility] | [facility] | | [place] [address] [address] [facility] | REGIONAL | | [place] [address] | LABORATORY | + + + + + + + + | Performing | Address | City/State/Zipcode | Phone Number | | Organization | | | | + + + + + | [facility] | [address] | [place] [address] | | | LABORATORY | | | [...] by | | | | | | [employer], | | | | | | | | | | | | [address] [facility] | | | | | | [address] [facility] [place] [address] | | | | | | [phone] | | | | | | | | | | | | [email or web address], | | | | | | Magui [...] [facility] | [address] | [place], [place] | | | UNIV PTH - INTFC | | [address] | | + + + + + [...] At | + + + | [facility] | [facility] | | [facility] [place] [address] [address] [facility] | DEPARTMENT OF | | [place] [address] | PATHOLOGY | + + + + + + + + | Performing | Address | City/State/Zipcode | Phone Number | | Organization | | | | + + + + + | [facility] DEPARTMENT OF | [address] | [place] [address] | | | PATHOLOGY | [address] [...] + + + + + | [facility] DEPARTMENT [facility] | [address] | [place] [address] | | | PATHOLOGY | [address] | | | + + + + + INR (03/13/2010 9:50 AM PDT) + + + + + + | Component | Value | Ref Range | Performed | Pathologist | | | | | At | Signature | + + + + + + | INR | 1.19Comment: | 0.90 - 1.20 INR | [facility] | | | | INR Therapeutic ranges [...] | + + + + + | [facility] | [address] [facility] | [place] [address] | | | PATHOLOGY | [address] [...] | | | DEPARTMENT | | | [place]O [place]AN | | | OF | | | [...] | + + + + + | [facility] | [address] | [place] [address] | | | PATHOLOGY | [address] [...]
--- OUTSIDE RECORDS SUMMARY | ~2019-08-24 | XMS | Encounter Summary ---
Demographics + + + | Address | [address] | | | [place] [address] | + + + | Home Phone | | + + + | Preferred Language | Unknown | + + + | Marital Status | | + + + | Oriental Orthodox Affiliation | Unknown | + + + | Race | Unknown | + + + | Ethnic Group | Unknown | + + + Author + + + | Author | [facility] | | | and Olegarioana | + + + | Organization | [facility] | | | [...] Team Providers + +------+ + | Care Newspaper Editor Name | Role | Phone | + +------+ + PCP | Unavailable | + +------+ + Encounter Details +--------+ + + + + | Date | Type | Department | Care Team | Description | +--------+ + + + + | 05/28/ | Hospital | [facility] | Livier Betancur, | 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 in [place], [place]. 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 Dr. Chong was not available for the surgery, secondary to a ak litary commitment, and I did see the patient in follow-up. The patient was then admitted to the [facility] on 05/28/2015 for an elective right-sided [...] the patient was transferred back to his senior care, [facility] in [facility] on 06/03/2015 Past Medical History Diagnosis Date Alcohol abuse Frequent falls Drug abuse Seizures (HCC) Other chronic pain Depression Skin abscess Anemia Hemiparesis (HCC) Past Surgical History Procedure Laterality Date Craniotomy Right 10/11/2014 Procedure: CRANIOTOMY - FOR BLEED; Surgeon: Anthony Chong MD; Location: [facility] IN OR; Service: Neurosurgery; Laterality: Right; Craniectomy Right 10/11/2014 Procedure: CRANIECTOMY; Surgeon: Anthony Chong MD; Location: [facility]; Ser vice: Neurosurgery; Laterality: Right; Cranial flap replacement Right 05/28/2015 Procedure: CRANIAL - FLAP REPLACEMENT; Surgeon: Livier Betancur MD; Location: [facility] OR; Service: Neurosurgery; Laterality: Right; Cranioplasty for cranial defect Right 05/29/2015 Procedure: CRANIOPLASTY; Surgeon: Livier Betancur MD; Location: [facility]; Service: Neurosurgery; Laterality: Right; Allergies Allergen Reactions [...] PLAN The patient was discharged to his senior care, the [facility] in [facility]. The patient was asked to return to the clinic in 2 weeks for removal of the right-sided sca lp diamond. Disposition: manager of finance care facility Condition: Stable Code Status: Prior No discharge procedures on file. Follow up: Livier Betancur MD [address] [place] [address] [id number] In 2 weeks Staple removal [facility] [address] [place] [id number] Medication List CHANGE how you take these [...] are the prescriptions that you need to fern picker. You may get the following medications [...] Josseline Mera RN Service: (none) Author Type: Vocational Placement Specialist Filed: 06/03/15 7615 Date of Service: 06/03/151406 Status: Signed Distance Learning Coordinator: Josseline Mera RN (Vocational Placement Specialist) Disposition: [facility] Transportation: D Map through [employer]. All orders, signed AVS, and prescriptions have been faxed All DC paperwork completed Patient and family in agreement with discharge plan Josseline Mera onver alem Transaction, Provider Unknown - 06/03/2015 12:21 PM PDT Nurse Progress Note by Shannon Nguyen RN at 06/03/15 1221 Author: Shannon Nguyen RN Service: (none) Author Type: Registered Nurse Filed: 06/03/15 1224 Date of Service: 06/03/15 1221 Status: Signed Distance Learning Coordinator: Shannon Nguyen RN (Registered Nurse) Pt discharged back to [facility] in [place]. Paperwork previously faxed. IV removed, belon gings with transport, talha in place. Left message for mother, notifying her of D/C. No c oncerns. SHANNON Nguyen RN onver alem Transaction, Provider Unknown - 06/03/2015 11:14 AM PDT Therapy Progress Note by Yazan Main PTA at 06/03/15 1114 Author: Yazan Main PTA Service: (none) Author Type: Barrel Polisher Filed: 06/03/15 1122 Date of Service: 06/03/15 1114 Status: Signed Distance Learning Coordinator: Yazan Main PTA (Barrel Polisher) 06/03/15 1114 PT Last Visit PT Received [...] Alternating;Decreased robina;Scissoring;Ataxic;Narrow base Assistive Device Other (Comment) (EXPANSION JOINT BUILDER) Activity Tolerance Activity Tolerance Patient limited by fatigue Plan Treatment/Interventions Continue per Primary PT POC Progress Progressing toward goals Recommendation Recommendations SNF PT recommendations were discussed and verified with supervising PT. Juhi Abel MA, CCC-ERISA ATTORNEY - 06/03/2015 9:07 AM PDTFormatting of this note might be different fr om the original. Therapy Progress Note by Juhi Gregory MA CCC-ERISA ATTORNEY at 06/03/15 09 Author: Juhi Gregory MA CCC-ERISA ATTORNEY Service: (none) Author Type: Speech and Planting Machine Crewman ologist Filed: 06/03/15906 Date of Service: 06/03/15906 Status: Signed Distance Learning Coordinator: Juhi Gregory MA CCC-ERISA ATTORNEY (Speech and Language Pathologist) 06/03/15 0850 Swallowing Assessment Eval Swallowing Treatment Yes Thin Presentation Cup Oral Phase Thin WFL Pharyngeal Phase Cough - delayed [place] Presentation Cup Oral WFL Pharyngeal Phase Delayed swallow initiated Puree Presentation Spoon Oral Phase WFL Pharyngeal Delayed Swallow Recommendations Liquids Consistency Recommendations [place] thick Diet Consistency Recommendation Pureed Recommendations Dysphagia treatment;Feeding assist;Set up with meals;Check on patients freq uently throught out meals Risk for Aspiration Moderate Compensatory Swallowing Strategies Upright as possible for all oral intake;Remain upright f or 30 minutes after meals;Slow rate presentation;Small bites/sips;Eat/feed slowly Recommended Form of Meds Meds floated in puree Summary pt eating breakfast with RN in room when ERISA ATTORNEY entered. pt with delayed swallow but no [...] Josseline Mera RN Service: (none) Author Type: Vocational Placement Specialist Filed: 06/03/15907 Date of Service: 06/03/15906 Status: Signed Distance Learning Coordinator: Josseline Mera RN (Vocational Placement Specialist) Gladis Regan will accept Krueger back when appropriate. Paperwork on front of chart f or MD signature. Ken Rivera MD - 06/02/2015 10:55 AM PDT Progress Notes by Ken Foster MD at 06/02/15 105 Author: Ken Foster MD Service: Neurosurgery Author Type: Physician Filed: 06/02/15 1057 Date of Service: 06/02/151054 Status: Signed Distance Learning Coordinator: Ken Foster MD (Physician) Subjective: POD#4 No [...] Therapy Progress Note by Mere Hardy MA CCC-ERISA ATTORNEY at 06/01/151625 Author: Mere Hardy MA CCC-ERISA ATTORNEY Service: (none) Author Type: Speech and Language Patholo gist Filed: 06/01/151625 Date of Service: 06/01/151625 Status: Signed Distance Learning Coordinator: Mere Hardy MA CCC-ERISA ATTORNEY (Speech and Language Pathologist) 06/01/15 160 Swallowing [...] upon palpation;Cou gh - delayed;Spontaneous multiple swallow [place] Presentation Cup;Self Fed Oral WFL Pharyngeal Phase No overt signs or symptoms of aspiration;Delayed swallow initiated;Decreas ed laryngeal elevation upon palpation Puree Presentation Self Fed;Spoon Oral Phase WFL Pharyngeal No overt signs or symptoms of aspiration;Delayed Swallow Dysphagia Mechanically Altered Presentation Spoon;Self Fed Oral Phase Prolonged mastication Pharyngeal Phase Cough - Immediate;Delayed Swallow;Decreased Laryngeal Elevation Recommendations Liquids Consistency Recommendations [place] thick Diet Consistency Recommendation Pureed Recommendations Dysphagia [...] monitoring;Patient/Family education; Assessment for upgrade Dysphagia Goals Weatherization Installer Goals Safe/efficient oral intake Pt will have safe/efficient oral intake [place] thick liquids;Dysphagia advanced diet;With max cues Short Term Goals Tolerate liquid consistency;Follow swallow precautions Pt will tolerate tolerate liquid consistency [place] thick liquids;With max supervision;Goa l progressing Pt will follow swallow precautions With mod supervision;Goal progressing onver alem Transaction, Provider Unknown - 06/01/2015 12:40 PM PDT Progress Notes by Fede Bonner at 06/01/15 1240 Author: Fede Bonner Service: (none) Author Type: Filed: 06/01/15 1242 Date of Service: 06/01/151239 Status: Signed Distance Learning Coordinator: Fede Bonner () Tony is from [place], but says he lives on the [facility]. Stated he has bee n in [...] 06/01/15909 Date of Service: 06/01/15907 Status: Signed Distance Learning Coordinator: Ken Foster MD (Physician) Subjective: POD#3 Transferred [...] could be returned to his care fac [facility] Wednesday or Wednesday. onversion Transact ion, Provider Unknown - 05/31/2015 12:04 PM PDTFormatting of this note might be different fr om the original. Progress Notes by Hany Templeton RD at 05/31/15 1204 Author: Hany Templeton RD Service: (none) Author Type: Registered Dietitian Filed: 05/31/15 120 Date of Service: 05/31/151203 Status: Signed Distance Learning Coordinator: Hany Templeton RD (Registered Dietitian) 05/31/15 5394 Subjective Timepoint Admit (Triggers for dysphagia. ) Pt c/o Pt admitted for seizures, has hx of craniectiomy, is POD # 2R [id number]-yirizfv cranioplasty, POD # 1 R bone flap [...] dysphagia pureed, NT liquid, house diet per ERISA ATTORNEY recommend ations. Add magic cups to meal [...] 1929 Date of Service: 05/31/151115 Status: Signed Distance Learning Coordinator: Ki Martinez PT (Physical Therapist) 05/31/15 1116 [...] 1306 Date of Service: 05/31/15917 Status: Signed Distance Learning Coordinator: Livier Betancur MD (Physician) POD#2 The patient [...] could be returned to his care fac [facility]. onnarcisa Transactio n, Provider Unknown - 05/31/2015 8:55 AM PDT Case Management by TABITHA Sidhu at 05/31/15 0855 Author: TABITHA Sidhu Service: (none) Author Type: Frame Fixer Filed: 05/31/15 1438 Date of Service: 05/31/1555 Status: Addendum Distance Learning Coordinator: TABITHA Sidhu (Frame Fixer) Related Notes: Original Note by TABITHA Sidhu (Frame Fixer) filed at 05/31/15 0856 Placed t/c to Dianna at [facility]. Left message requesting a return call as i have no t heard from her since I faxed the referral. Await her return call. Addendum: 1400: Received return call from Debora at [facility]. Pt is accepted for a dmit when he is medically stable. Tabitha Cooley PT - 05/30/2015 3:49 PM PDTFormatting of this note might be different from th e original. Therapy Progress Note by Keiry Weiss PT at 05/30/15 8639 Author: Keiry Weiss PT Service: (none) Author Type: Physical Therapist Filed: 05/30/15 180 Date of Service: 05/30/151548 Status: Signed Distance Learning Coordinator: Keiry Weiss, PT (Physical Therapist) 05/30/15 1549 [...] Pt had been most recently staying at [facility] in [place]. Pt was getti ng agitated with questions and not wanting to respond. Prior Function Level of [place] Assist with functional mobility;Assist with ADLs;Assist with IADLs (while at [facility], unclear functional mobility prior) Lives With Alone Receives Help From Family (silblings) Comments difficult to ascertain- pt reported spending most of his time in w/c at [facility] an d needing help with all [...] Barriers to Discharge Physical Deficits Impacting Functional [place];Self-care Deficit s Impacting Functional [place] 05/30/15 1549 PT Last Visit PT Received [...] Barriers to Discharge Physical Deficits Impacting Functional [place];Self-care Deficit s Impacting Functional [place] onversion Transa ction, Provider Unknown - 05/30/2015 3:10 PM PDT Therapy Progress Note by Carmela Wilcox MS CCC-ERISA ATTORNEY at 05/30/15 5211 Author: Carmela Wilcox MS CCC-ERISA ATTORNEY Service: (none) Author Type: Speech and Planting Machine Crewman ologist Filed: 05/30/15 6815 Date of Service: 09/10/15 1510 Status: Signed Distance Learning Coordinator: Carmela Wilcox MS CCC-ERISA ATTORNEY (Speech and Language Pathologist) 05/30/15 1500 Swallowing [...] Pharyngeal Phase Delayed swallow initiated;Cough - delayed [place] Presentation Cup;Self Fed Oral Increased Anterior to [...] Cough - Delayed Recommendations Liquids Consistency Recommendations [place] thick;Ice chips for oral comfort Diet Consistency [...] strategies Dysphagia Goals Alf Goals Safe/efficient oral intake Pt will have safe/efficient oral intake [place] thick liquids;Dysphagia advanced diet;With max cues Short Term Goals Tolerate liquid consistency;Follow swallow precautions Pt will tolerate tolerate liquid consistency [place] thick liquids;With max supervision Pt will follow swallow precautions With mod supervision;New/revised goal RDStLivier bustamante - 05/30/2015 8:48 AM PDTFormatting of this note might be different from the or iginal. Progress Notes by Livier Betancur MD at 05/30/15847 Author: Livier Betancur MD Service: Neurosurgery Author Type: Physician Filed: 05/30/15 1230 Date of Service: 05/30/15847 Status: Signed Distance Learning Coordinator: Livier Betancur MD (Physician) POD#1 The patient [...] Mendoza at 05/30/15639 Author: JENNIFER Mendoza Service: Milk House Worker Author Type: Nurse Practitioner Filed: 05/30/15 1123 Date of Service: 05/30/15639 Status: Signed Distance Learning Coordinator: JENNIFER Mendoza (Nurse Practitioner) [facility] Service: Milk House Worker Progress Note Krueger Levycharlene 54 y.o. Hospital Day: LOS: 2 days [...] 142 Date of Service: 05/29/151420 Status: Signed Distance Learning Coordinator: Livier Betancur MD (Physician) ICU nurse states the patient seems more lethargic. I will plan a return to the OR now to e valuate the pressure present beneath the right-sided cranial flap. onversion Transactio n, Provider Unknown - 05/29/2015 1:24 PM PDT Case Management by TABITHA Sidhu at 05/29/15 1327 Author: TABITHA Sidhu Service: (none) Author Type: Frame Fixer Filed: 05/29/15 1326 Date of Service: 05/29/151323 Status: Signed Distance Learning Coordinator: TABITHA Sidhu (Frame Fixer) 05/29/15 1324 Discharge Planning Evaluation Admitting Diagnosis Right nmqwib-kneetjo-rcxrcgpz cranioplasty Readmission Other (comment) Living Arrangements Other (Comment) (residential) Support Systems Parent Type of Residence snf facility ([facility]) Independent with ADL's No-comment Independent with Mobility No-comment (require w/c) Home Care Services No Mental Status Other (comment) (just starting to follow commands after surgery) Prior functional status Previously at [facility] and [facility]. Richelle is at [facility] and mother states that plan is to retun there. Anticipated Discharge Plan Plan communicated to patient/family Yes Resources Financial concerns No Transportation issues No Patient/Family concerns No Prescription Plan Yes Anticipated Disposition Facility Type snf facility [facility]itentiary Facility Other (comment) ([facility]) Met with: pt's mother Teressa who tells me she is the healthcare decision-maker for pt and discussed discharge planning, Pt is a 54 y.o., male s/p cranioplasty. Pt has been at [facility] for the last 2-3 months per mother. Plan is for pt to live with his mother donal ut he requires significant care at this time. E-faxed referral to Dianna at [facility]. Patient's PCP is: [facility] Patient's insurance:[place] Medicaid - [employer]MAP Coverage concerns: Medication coverage/concerns: Nahun'eliseo Bedside Delivery: Community resources utilized / needed: Assistance in transportation: may need ambulance transfer back to [place] Identification of any specific education / training: Barriers to Discharge / Alternative housing needed: Anticipated DCP: Back to [facility]. Referral faxed to [facility]. HAYES STEEN Livier Briseno - 05/29/2015 12:37 PM PDTFormatting of this note might be different from the or iginal. Progress Notes by Livier Betancur MD at 05/29/15 8135 Author: Livier Betancur MD Service: Neurosurgery Author Type: Physician Filed: 05/31/15 9646 Date of Service: 05/29/15 9928 Status: Addendum Distance Learning Coordinator: Livier Betancur MD (Physician) Related Notes: Original Note by Livier Betancur MD (Physician) filed at 05/29/15 8007 EXAM: Patient does nod his head yes [...] Galan Service: Wound/Ostomy Care Author Type: Nurse Steel Fabricating Supervisor Filed: 05/29/15 1220 Date of Service: 05/29/151218 Status: Signed Distance Learning Coordinator: Pelon Galan (Nurse Steel Fabricating Supervisor) Patient seen today for low Bon score. [...] 05/29/151209 Date of Service: 05/29/151209 Status: Signed Distance Learning Coordinator: Debra Fitzpatrick RPH (Pharmacist) Renal Dosing Monitoring: [...] 1.30 mg/dL Final Comment: Testing performed at [facility], [address] [place] [address] Creatinine clearance cannot be calculated (Patient's most [...] 1003 Date of Service: 05/29/1554 Status: Signed Distance Learning Coordinator: Livier Betancur MD (Physician) POD#1 The patient [...] 05/28/151119 Date of Service: 05/28/151119 Status: Signed Distance Learning Coordinator: Joyce Hernandez RPH (Pharmacist) Clinical Pharmacy Note: Renal Monitoring Tony Mcguire 54 y.o. male Ht Readings from Last 1 Encounters: 05/28/15 1.778 m (5' 10") Wt Readings from Last 1 Encounters: 05/28/15 78.9 kg (173 lb 15.1 oz) CREATININE Date Value Ref Range Status 11/26/2014 0.62* 0.70 - 1.30 mg/dL Final Comment: Testing performed at [facility], [address] [place] [address] Creatinine clearance cannot be calculated (Patient's most recent sCr result is older than t he maximum 3 days allowed.) Pharmacy dosing for renal function per Dr. Rios. Currently, there are no medications needing to be adjusted. Pharmacy will continue to monit or for changes in medication orders and in renal function and adjust accordingly. Joyce Hernandez [facility] 05/28/2015 11:20 AM onver alem Transaction, Provider Unknown - 05/28/2015 11:17 AM PDT Nurse Progress Note by Anna Gates RN at 05/28/15 1117 Author: Anna Gates RN Service: (none) Author Type: Registered Nurse Filed: 05/28/15 1118 Date of Service: 05/28/15 1117 Status: Signed Distance Learning Coordinator: Anna Gates RN (Registered Nurse) Report from Shayna at [facility] states that patient has been NPO since [...] Date of Service: 05/28/15 1041 Status: Signed Distance Learning Coordinator: Anna Gates RN (Registered Nurse) Lamine from [...] | EXTERNAL LAB: MARJ | Routin | 05/31/2015 | | Results [...] | + +--------+ + + + | KANCHAN CARR, CG8, | Routin | 05/29/2015 | | Results [...] | | | | performed at [facility];888 | mmol/L | LAB | | | | [address] [facility];[place], [place] | | | | | | [address] | | | | + + + [...] | | | | performed at [facility] | | LAB | | | | [address];[place], [place] | | | | | | [address] | | | | + + + [...] EXTERNAL | | | | performed at [facility], [address] | K/uL | LAB | | | | [address], | | | | | | [place] [address] | | | | + + + + + + | RED CELL | 3.20 (L)Comment: Testing | 4.20 - 5.70 | EXTERNAL | | | COUNT | performed at [facility], [address] | M/uL | LAB | | | | [address], | | | | | | [place] [address] | | | | + + + + + + | Hgb | 8.9 (L)Comment: Testing | 13.2 - 17.0 | EXTERNAL | | | | performed at [facility], [address] | g/dL | LAB | | | | [address], | | | | | | [place] [address] | | | | + + + + + + | Hematocrit, | 27.2 (L)Comment: Testing | 39.0 - 50.0 % | EXTERNAL | | | POC | performed at [facility], [address] | | LAB | | | | [address], | | | | | | [place] [address] | | | | + + + + + + | MCV | 85.1Comment: Testing | 80.0 - 100.0 fl | EXTERNAL | | | | performed at [facility], [address] | | LAB | | | | [address], | | | | | | [place] [address] | | | | + + + + + + | MCH | 27.7Comment: Testing | 27.0 - 34.0 pg | EXTERNAL | | | | performed at [facility], [address] | | LAB | | | [address], | | | | | | [place] [address] | | | | + + + + + + | MCHC | 32.6Comment: Testing | 32.0 - 35.5 | EXTERNAL | | | | performed at [facility], [address] | g/dL | LAB | | | | [address], | | | | | | [place] [address] | | | | + + + + + + | RDW-CV | 49.0Comment: Testing | 37 - 53 fl | EXTERNAL | | | | performed at [facility], [address] | | LAB | | | | [address], | | | | | | [place] [address] | | | | + + + + + + | Platelet | 103 (L)Comment: Testing | 150 - 400 K/uL | EXTERNAL | | | Count | performed at [facility], [address] | | LAB | | | Plasma | [address], | | | | | | [place] [address] | | | | + + + + + + | MPV | 9.1Comment: Testing | fl | EXTERNAL | | | | performed at [facility], [address] | | LAB | | | | [address], | | | | | | [place] [address] | | | | + + + + + + | Differentia | AUTOMATEDComment: | | EXTERNAL | | | l Type | Testing performed at | | LAB | | | | [facility], [address] | | | | | | [place] | | | | | | [address] | | | | + + + + + + | % Segmented | 70.80Comment: Testing | % | EXTERNAL | | | | performed at [facility], [address] | | LAB | | | Neutrophils | [address], | | | | | | [place] [address] | | | | + + + + + + | % | 19.56Comment: Testing | % | EXTERNAL | | | Lymphocytes | performed at [facility], [address] | | LAB | | | | [address], | | | | | | [place] [address] | | | | + + + + + + | % Monocytes | 8.15Comment: Testing | % | EXTERNAL | | | | performed at [facility], [address] | | LAB | | | | [address], | | | | | | [place] [address] | | | | + + + + + + | % | 1.12Comment: Testing | % | EXTERNAL | | | Eosinophils | performed at [facility], [address] | | LAB | | | | [address], | | | | | | [place] [address] | | | | + + + + + + | % Basophils | 0.37Comment: Testing | % | EXTERNAL | | | | performed at [facility], [address] | | LAB | | | | [address], | | | | | | [place] [address] | | | | + + + + + + | Absolute | 4.40Comment: Testing | 1.90 - 7.40 | EXTERNAL | | | Segmented | performed at [facility], [address] | K/uL | LAB | | | Neutrophils | [address], | | | | | | [place] [address] | | | | + + + + + + | Absolute | 1.22Comment: Testing | 1.00 - 3.90 | EXTERNAL | | | Lymphocytes | performed at [facility], [address] | K/uL | LAB | | | | [address], | | | | | | [place] [address] | | | | + + + + + + | Absolute | 0.51Comment: Testing | 0.00 - 0.80 | EXTERNAL | | | Monocytes | performed at [facility], [address] | K/uL | LAB | | | | [address], | | | | | | [place] [address] | | | | + + + + + + | Absolute | 0.07Comment: Testing | 0.00 - 0.50 | EXTERNAL | | | Eosinophils | performed at [facility], [address] | K/uL | LAB | | | | [address], | | | | | | [place] [address] | | | | + + + + + + | Absolute | 0.02Comment: Testing | 0.00 - 0.10 | EXTERNAL | | | Basophils | performed at [facility], [address] | K/uL | LAB | | | | [address], | | | | | | [place] [address] | | | | + + + [...] EXTERNAL | | | | performed at [facility], [address] | | LAB | | | | [address], | | | | | | [place] [address] | | | | + + + [...] EXTERNAL | | | | performed at [facility], [address] | | LAB | | | | [address], | | | | | | [place] [address] | | | | + + + [...] | | | | | [place] [address] | | | | + + + + + + | K | 3.8Comment: Testing | 3.5 - 4.9 | EXTERNAL | | | | performed at [facility], [address] | mmol/L | LAB | | | | [address], | | | | | | [place] [address] | | | | + + + + + + | Cl | 106Comment: Testing | 99 - 109 mmol/L | EXTERNAL | | | | performed at [facility], [address] | | LAB | | | | [address], | | | | | | [place] [address] | | | | + + + + + + | CO2 | 27Comment: Testing | 23 - 32 mmol/L | EXTERNAL | | | | performed at [facility], [address] | | LAB | | | | [address], | | | | | | [place] [address] | | | | + + + + + + | Anion Gap | 7Comment: Testing | 5 - 20 mmol/L | EXTERNAL | | | | performed at [facility], [address] | | LAB | | | | [address], | | | | | | [place] [address] | | | | + + + + + + | Glucose, | 99Comment: Testing | 65 - 99 mg/dL | EXTERNAL | | | Fasting | performed at [facility], [address] | | LAB | | | | [address], | | | | | | [place] [address] | | | | + + + + + + | BUN | 4 (L)Comment: Testing | 8 - 25 mg/dL | EXTERNAL | | | | performed at [facility], [address] | | LAB | | | | [address], | | | | | | [place] [address] | | | | + + + + + + | Creatinine | 0.48 (L)Comment: Testing | 0.70 - 1.30 | EXTERNAL | | | | performed at [facility], [address] | mg/dL | LAB | | | | [address], | | | | | | [place] [address] | | | | + + + + + + | BUN/Creatin | 8Comment: Testing | | EXTERNAL | | | ine Ratio | performed at [facility], [address] | | LAB | | | | [address], | | | | | | [place] [address] | | | | + + + + + + | Calcium | 8.3 (L)Comment: Testing | 8.5 - 10.5 | EXTERNAL | | | | performed at [facility], [address] | mg/dL | LAB | | | | [address] [facility], | | | | | | [place] [address] | | | | + + + [...] | | | | | | at [facility], [address] | | | | | | [facility], | | | | | | [place] [address] | | | | + + + + + + + + | Specimen | + + | Blood specimen | | (specimen) | + + + +---------+ + + | Performing | Address | City/State/[facility] Cent[facility]ode | Phone Number | | [...] | | | | performed at [facility];[address] | mmol/L | LAB | | | | [address];[place] | | | | | | [address] | | | | + + + [...] | | | | performed at [facility];[address] | | LAB | | | | [address];[place] | | | | | | [address] | | | | + + + [...] | | | | performed at [facility] | | LAB | | | | [address];[place] | | | | | | [address] | | | | + + + [...] drain | | | placement. 2. Improved yvjwo-rj-giao midline shift. RADIA | | | Electronically signed by Joshua Rivera MD on May 30 2015 10:35AM | | | Referring Provider Line: [phone] ID: [id number] | | + + + [...] has improved. There is | | | nachy-dd-nnaz midline shift measuring at least 5 mm [...] seen. Intracranial pneumocephalus has improved. There is zfwiu-vb-unsr midline shift | | measuring at least [...] interval subdural drain placement.2. | | Improved ekfhl-tl-qqlm midline shift. RADIA Electronically signed by Joshua Rivera MD | | on May 30 2015 10:35AM Referring Provider Line: [phone] ID: [id number] | | | |Sinuses: Paranasal [...] molina bdural drain placement. | |2. Improved dvqvy-ed-mscr midline shift. | | | |RADIA | | | | Electronically signed by Joshua Rivera MD on May 30 2015 10:35AM Referring Provider Line: [phone] ID: [id number] | + + PTT (05/30/2015 2:59 AM PDT) + + + + + + | Component | Value | Ref Range | Performed | Pathologist | | | | | At | Signature | + + + + + + | aPTT, | 33 (H)Comment: Testing | 23 - 32 seconds | EXTERNAL | | | Patient | performed at [facility];[address] | | LAB | | | | [address];[place], [place] | | | | | | [address] | | | | + + + [...] | | | | performed at [facility];[address] | | | | | | [address] [facility];[place], [place] | | | | | | [address] | | | | + + + [...] EXTERNAL | | | | performed at [facility], [address] | K/uL | LAB | | | | [address], | | | | | | [place] [address] | | | | + + + + + + | RED CELL | 3.24 (L)Comment: Testing | 4.20 - 5.70 | EXTERNAL | | | COUNT | performed at [facility], [address] | M/uL | LAB | | | | [address], | | | | | | [place] [address] | | | | + + + + + + | Hgb | 8.8 (L)Comment: Testing | 13.2 - 17.0 | EXTERNAL | | | | performed at [facility], [address] | g/dL | LAB | | | | [address], | | | | | | [place] [address] | | | | + + + + + + | Hematocrit, | 27.5 (L)Comment: Testing | 39.0 - 50.0 % | EXTERNAL | | | POC | performed at [facility], [address] | | LAB | | | | [address], | | | | | | [place] [address] | | | | + + + + + + | MCV | 85.1Comment: Testing | 80.0 - 100.0 fl | EXTERNAL | | | | performed at [facility], [address] | | LAB | | | | [address], | | | | | | [place] [address] | | | | + + + + + + | MCH | 27.3Comment: Testing | 27.0 - 34.0 pg | EXTERNAL | | | | performed at [facility], [address] | | LAB | | | | [address], | | | | | | [place] [address] | | | | + + + + + + | MCHC | 32.1Comment: Testing | 32.0 - 35.5 | EXTERNAL | | | | performed at [facility], [address] | g/dL | LAB | | | | [address], | | | | | | [place] [address] | | | | + + + + + + | RDW-CV | 47.3Comment: Testing | 37 - 53 fl | EXTERNAL | | | | performed at [facility], [address] | | LAB | | | | [address], | | | | | | [place] [address] | | | | + + + + + + | Platelet | 117 (L)Comment: Testing | 150 - 400 K/uL | EXTERNAL | | | Count | performed at [facility], [address] | | LAB | | | Plasma | [address], | | | | | | [place] [address] | | | | + + + + + + | MPV | 9.7Comment: Testing | fl | EXTERNAL | | | | performed at [facility], [address] | | LAB | | | | [address], | | | | | | [place] [address] | | | | + + + + + + | Differentia | AUTOMATEDComment: | | EXTERNAL | | | l Type | Testing performed at | | LAB | | | | [facility], [address] | | | | | | [place] | | | | | | [address] | | | | + + + + + + | % Segmented | 72.39Comment: Testing | % | EXTERNAL | | | | performed at [facility], [address] | | LAB | | | Neutrophils | [address], | | | | | | [place] [address] | | | | + + + + + + | % | 16.63Comment: Testing | % | EXTERNAL | | | Lymphocytes | performed at [facility], [address] | | LAB | | | | [address], | | | | | | [place] [address] | | | | + + + + + + | % Monocytes | 10.39Comment: Testing | % | EXTERNAL | | | | performed at [facility], [address] | | LAB | | | | [address], | | | | | | [place] [address] | | | | + + + + + + | % | 0.31Comment: Testing | % | EXTERNAL | | | Eosinophils | performed at [facility], [address] | | LAB | | | | [address], | | | | | | [place] [address] | | | | + + + + + + | % Basophils | 0.28Comment: Testing | % | EXTERNAL | | | | performed at [facility], [address] | | LAB | | | | [address], | | | | | | [place] [address] | | | | + + + + + + | Absolute | 5.32Comment: Testing | 1.90 - 7.40 | EXTERNAL | | | Segmented | performed at [facility], [address] | K/uL | LAB | | | Neutrophils | [address], | | | | | | [place] [address] | | | | + + + + + + | Absolute | 1.22Comment: Testing | 1.00 - 3.90 | EXTERNAL | | | Lymphocytes | performed at [facility], [address] | K/uL | LAB | | | | [address], | | | | | | [place] [address] | | | | + + + + + + | Absolute | 0.76Comment: Testing | 0.00 - 0.80 | EXTERNAL | | | Monocytes | performed at [facility], [address] | K/uL | LAB | | | | [address], | | | | | | [place] [address] | | | | + + + + + + | Absolute | 0.02Comment: Testing | 0.00 - 0.50 | EXTERNAL | | | Eosinophils | performed at [facility], [address] | K/uL | LAB | | | | [address] [...] | | | | | [place] [address] | | | | + + + [...] EXTERNAL | | | | performed at [facility], [address] | | LAB | | | | [address], | | | | | | [place] [address] | | | | + + + [...] EXTERNAL | | | | performed at [facility], [address] | | LAB | | | | [address], | | | | | | [place] [address] | | | | + + + [...] | | | | | [place] [address] | | | | + + + + + + | K | 3.7Comment: Testing | 3.5 - 4.9 | EXTERNAL | | | | performed at [facility], [address] | mmol/L | LAB | | | | [address], | | | | | | [place] [address] | | | | + + + + + + | Cl | 106Comment: Testing | 99 - 109 mmol/L | EXTERNAL | | | | performed at [facility], [address] | | LAB | | | | [address], | | | | | | [place] [address] | | | | + + + + + + | CO2 | 27Comment: Testing | 23 - 32 mmol/L | EXTERNAL | | | | performed at [facility], [address] | | LAB | | | | [address], | | | | | | [place] [address] | | | | + + + + + + | Anion Gap | 6Comment: Testing | 5 - 20 mmol/L | EXTERNAL | | | | performed at [facility], [address] | | LAB | | | | [address], | | | | | | [place], [place] [address] | | | | + + + + + + | Glucose, | 106 (H)Comment: Testing | 65 - 99 mg/dL | EXTERNAL | | | Fasting | performed at [facility], [address] | | LAB | | | | [address], | | | | | | [place], [place] [address] | | | | + + + + + + | BUN | 5 (L)Comment: Testing | 8 - 25 mg/dL | EXTERNAL | | | | performed at [facility], [address] | | LAB | | | | [address], | | | | | | [place] [address] | | | | + + + + + + | Creatinine | 0.50 (L)Comment: Testing | 0.70 - 1.30 | EXTERNAL | | | | performed at [facility], [address] | mg/dL | LAB | | | | [address], | | | | | | [place] [address] | | | | + + + + + + | BUN/Creatin | 10Comment: Testing | | EXTERNAL | | | ine Ratio | performed at [facility], [address] | | LAB | | | | [facility], | | | | | | [place] [address] | | | | + + + + + + | Calcium | 8.1 (L)Comment: Testing | 8.5 - 10.5 | EXTERNAL | | | | performed at [facility], [address] | mg/dL | LAB | | | | [address], | | | | | | [place] [address] | | | | + + + [...] | | | | | [place] [address] | | | | + + + [...] At | + + + | TONY CONRAD CHEST 1 VIEW HISTORY: 54 years. Male. [...] | Procedure Note | + + | Rsoalio, Rad Conversion - 05/05/2019 12:20 AM PDT [...] | | Count | performed at [facility];[address] | | LAB | | | Plasma | [address];[place] | | | | | | [address] | | | | + + + [...] Note | + + | Roaslio, Rad Conversion - 05/05/2019 12:20 AM PDT [address]UEGER LEVYCHARLENEXR CT PORTABLE HEAD | | UNENHANCED HISTORY:54 [...] | | | Patient | performed at [facility];[address] | | LAB | | | | [address];[place], [place] | | | | | | [address] | | | | + + + [...] | | | | performed at [facility] | | | | | | [address];[place], [place] | | | | | | [address] | | | | + + + [...] | | | | performed at [facility];[address] | | LAB | | | | [address];[place] | | | | | | [address] | | | | + + + [...] | | | | performed at [facility];[address] | | | | | | [facility];[place], [place] | | | | | | [address] | | | | + + + + + + + + | Specimen | + + | Blood specimen | | (specimen) | + + + +---------+ + + | Performing | Address | City/State/Zipcode | Phone Number | | Organization | | | | + +---------+ + + | EXTERNAL LAB | | | | + +---------+ + + POC BRUNO, CG8, Arterial (05/29/2015 3:27 PM PDT) + [...] | LAB | | | | [facility];[address];[place] [address] | | | | + + + + + + | PCO2 ART | 37Comment: Testing | 35 - 45 mmHg | EXTERNAL | | | | performed at [facility];[address] | | LAB | | | | [address];[place] | | | | | | [address] | | | | + + + + + + | PO2 ART | 208 (H)Comment: Testing | 80 - 105 mmHg | EXTERNAL | | | | performed at [facility];[address] | | LAB | | | | [address];[place] | | | | | | [address] | | | | + + + + + + | HCO3 ART | 26Comment: Testing | 22 - 26 mmol/L | EXTERNAL | | | | performed at [facility];[address] | | LAB | | | | [address];[place] | | | | | | [address] | | | | + + + + + + | POC | 27Comment: Testing | 23 - 27 mEq/L | EXTERNAL | | | APPEARANCE | performed at [facility];[address] | | LAB | | | UA | [address];[place] | | | | | | [address] | | | | + + + + + + | Base | 2Comment: Testing | 0 - 3 mEq/L | EXTERNAL | | | Excess, | performed at [facility];[address] | | LAB | | | Arterial | [address];[place] | | | | | | [address] | | | | + + + + + + | O2 SAT ART | 100 (H)Comment: Testing | 95 - 98 % | EXTERNAL | | | | performed at [facility];[address] | | LAB | | | | [address];[place] | | | | | | [address] | | | | + + + + + + | Sodium, POC | 134 (L)Comment: Testing | 135 - 145 mEq/L | EXTERNAL | | | | performed at [facility];[address] | | LAB | | | | [address];[place] | | | | | | [address] | | | | + + + + + + | Potassium, | 3.6Comment: Testing | 3.5 - 5.0 mEq/L | EXTERNAL | | | POC | performed at [facility];[address] | | LAB | | | | [address];[place] | | | | | | [address] | | | | + + + + + + | Ionized | 1.09 (L)Comment: Testing | 1.12 - 1.32 | EXTERNAL | | | Calcium, | performed at [facility];[address] | mmol/L | LAB | | | POC | [address];[place] | | | | | | [address] | | | | + + + + + + | Glucose, | 191 (H)Comment: Testing | 65 - 99 mg/dL | EXTERNAL | | | POC | performed at [facility];[address] | | LAB | | | | [address];[place] | | | | | | [address] | | | | + + + + + + | Hematocrit, | 35 (L)Comment: Testing | 40.0 - 50.0 % | EXTERNAL | | | POC | performed at [facility];[address] | | LAB | | | | [address];[place] | | | | | | [address] | | | | + + + + + + | Hemoglobin, | 11.9 (L)Comment: Testing | 13.7 - 16.7 | EXTERNAL | | | POC | performed at [facility];[address] | g/dL | LAB | | | | [address];[place] | | | | | | [address] | | | | + + + [...] | | + + External Lab: MARJ (05/29/2015 3:58 AM PDT) + + + + + + | Component | Value | Ref Range | Performed | Pathologist | | | | | At | Signature | + + + + + + | WBC | 9.09Comment: Testing | 3.80 - 11.00 | EXTERNAL | | | | performed at [facility], [address] | K[address]L | LAB | | | | [address], | | | | | | [place] [address] | | | | + + + + + + | RED CELL | 4.00 (L)Comment: Testing | 4.20 - 5.70 | EXTERNAL | | | COUNT | performed at [facility], [address] | M/uL | LAB | | | | [address], | | | | | | [place] [address] | | | | + + + + + + | Hgb | 11.0 (L)Comment: Testing | 13.2 - 17.0 | EXTERNAL | | | | performed at [facility], [address] | g/dL | LAB | | | | [address], | | | | | | [place] [address] | | | | + + + + + + | Hematocrit, | 33.7 (L)Comment: Testing | 39.0 - 50.0 % | EXTERNAL | | | POC | performed at [facility], [address] | | LAB | | | | [address], | | | | | | [place] [address] | | | | + + + + + + | MCV | 84.3Comment: Testing | 80.0 - 100.0 fl | EXTERNAL | | | | performed at [facility], [address] | | LAB | | | [address], | | | | | | [place] [address] | | | | + + + + + + | MCH | 27.6Comment: Testing | 27.0 - 34.0 pg | EXTERNAL | | | | performed at [facility], [address] | | LAB | | | | [address], | | | | | | [place] [address] | | | | + + + + + + | MCHC | 32.8Comment: Testing | 32.0 - 35.5 | EXTERNAL | | | | performed at [facility], [address] | g/dL | LAB | | | | [address], | | | | | | [place] [address] | | | | + + + + + + | RDW-CV | 45.1Comment: Testing | 37 - 53 fl | EXTERNAL | | | | performed at [facility], [address] | | LAB | | | | [address], | | | | | | [place] [address] | | | | + + + + + + | Platelet | 135 (L)Comment: Testing | 150 - 400 K/uL | EXTERNAL | | | Count | performed at [facility], [address] | | LAB | | | Plasma | [address], | | | | | | [place] [address] | | | | + + + + + + | MPV | 9.2Comment: Testing | fl | EXTERNAL | | | | performed at [facility], [address] | | LAB | | | | [address], | | | | | | [place] [address] | | | | + + + + + + | Differentia | AUTOMATEDComment: | | EXTERNAL | | | l Type | Testing performed at | | LAB | | | | [facility], [address] | | | | | | [place] | | | | | | [address] | | | | + + + + + + | % Segmented | 75.95Comment: Testing | % | EXTERNAL | | | | performed at [facility], [address] | | LAB | | | Neutrophils | [address], | | | | | | [place] [address] | | | | + + + + + + | % | 14.93Comment: Testing | % | EXTERNAL | | | Lymphocytes | performed at [facility], [address] | | LAB | | | | [address], | | | | | | [place] [address] | | | | + + + + + + | % Monocytes | 8.68Comment: Testing | % | EXTERNAL | | | | performed at [facility], [address] | | LAB | | | | [address], | | | | | | [place] [address] | | | | + + + + + + | % | 0.25Comment: Testing | % | EXTERNAL | | | Eosinophils | performed at [facility], [address] | | LAB | | | | [address], | | | | | | [place] [address] | | | | + + + + + + | % Basophils | 0.19Comment: Testing | % | EXTERNAL | | | | performed at [facility], [address] | | LAB | | | | [address], | | | | | | [place] [address] | | | | + + + + + + | Absolute | 6.90Comment: Testing | 1.90 - 7.40 | EXTERNAL | | | Segmented | performed at [facility], [address] | K/uL | LAB | | | Neutrophils | [address], | | | | | | [place] [address] | | | | + + + + + + | Absolute | 1.36Comment: Testing | 1.00 - 3.90 | EXTERNAL | | | Lymphocytes | performed at [facility], [address] | K/uL | LAB | | | | [address], | | | | | | [place] [address] | | | | + + + + + + | Absolute | 0.79Comment: Testing | 0.00 - 0.80 | EXTERNAL | | | Monocytes | performed at [facility], [address] | K/uL | LAB | | | | [address], | | | | | | [place] [address] | | | | + + + + + + | Absolute | 0.02Comment: Testing | 0.00 - 0.50 | EXTERNAL | | | Eosinophils | performed at [facility], [address] | K/uL | LAB | | | | [address], | | | | | | [place] [address] | | | | + + + + + + | Absolute | 0.02Comment: Testing | 0.00 - 0.10 | EXTERNAL | | | Basophils | performed at [facility], [address] | K/uL | LAB | | | | [address], | | | | | | [place] [address] | | | | + + + [...] | | | | | [place] [address] | | | | + + + + + + | K | 4.1Comment: Testing | 3.5 - 4.9 | EXTERNAL | | | | performed at [facility], [address] | mmol/L | LAB | | | | [address], | | | | | | [place] [address] | | | | + + + + + + | Cl | 102Comment: Testing | 99 - 109 mmol/L | EXTERNAL | | | | performed at [facility], [address] | | LAB | | | [address], | | | | | | [place] [address] | | | | + + + + + + | CO2 | 26Comment: Testing | 23 - 32 mmol/L | EXTERNAL | | | | performed at [facility], [address] | | LAB | | | | [address], | | | | | | [place] [address] | | | | + + + + + + | Anion Gap | 10Comment: Testing | 5 - 20 mmol/L | EXTERNAL | | | | performed at [facility], [address] | | LAB | | | | [address], | | | | | | [place] [address] | | | | + + + + + + | Glucose, | 109 (H)Comment: Testing | 65 - 99 mg/dL | EXTERNAL | | | Fasting | performed at [facility], [address] | | LAB | | | | [address], | | | | | | [place] [address] | | | | + + + + + + | BUN | 7 (L)Comment: Testing | 8 - 25 mg/dL | EXTERNAL | | | | performed at [facility], [address] | | LAB | | | | [address], | | | | | | [place] [address] | | | | + + + + + + | Creatinine | 0.62 (L)Comment: Testing | 0.70 - 1.30 | EXTERNAL | | | | performed at [facility], [address] | mg/dL | LAB | | | | [address], | | | | | | [place] [address] | | | | + + + + + + | BUN/Creatin | 11Comment: Testing | | EXTERNAL | | | ine Ratio | performed at [facility], [address] | | LAB | | | | [address], | | | | | | [place] [address] | | | | + + + + + + | Calcium | 8.8Comment: Testing | 8.5 - 10.5 | EXTERNAL | | | | performed at [facility], [address] | mg/dL | LAB | | | | [address], | | | | | | [place] [address] | | | | + + + [...] | | | | | [place] [address] | | | | + + [...] | | | | | [place] [address] | | | | + + + + + + | Clarity | CLEARComment: Testing | | EXTERNAL | | | | performed at [facility], [address] | | LAB | | | | [address], | | | | | | [place] [address] | | | | + + + + + + | Specific | 1.029Comment: Testing | 1.002 - 1.030 | EXTERNAL | | | [place] | performed at [facility], [address] | | LAB | | | | [address], | | | | | | [place] [address] | | | | + + + + + + | Leukocyte | NEGATIVEComment: Testing | | EXTERNAL | | | Esterase, | performed at [facility], [address] | | LAB | | | Urine | [address], | | | | | | [place] [address] | | | | + + + + + + | Nitrite, | NEGATIVEComment: Testing | | EXTERNAL | | | Urine | performed at [facility], [address] | | LAB | | | | [address], | | | | | | [place] [address] | | | | + + + + + + | Urobilinoge | 1.0Comment: Testing | mg/dL | EXTERNAL | | | n, Urine | performed at [facility], [address] | | LAB | | | | [address], | | | | | | [place] [address] | | | | + + + + + + | Protein, | NEGATIVEComment: Testing | mg/dL | EXTERNAL | | | Urine | performed at [facility], [address] | | LAB | | | | [address], | | | | | | [place] [address] | | | | + + + + + + | pH, Urine | 5.0Comment: Testing | 5.0 - 8.0 | EXTERNAL | | | | performed at [facility], [address] | | LAB | | | | [address], | | | | | | [place] [address] | | | | + + + + + + | Blood, | NEGATIVEComment: Testing | | EXTERNAL | | | Urine | performed at [facility], [address] | | LAB | | | | [address], | | | | | | [place] [address] | | | | + + + + + + | Ketones | 40 (A)Comment: Testing | mg/dL | EXTERNAL | | | | performed at [facility], [address] | | LAB | | | | [address], | | | | | | [place] [address] | | | | + + + + + + | Bilirubin, | NEGATIVEComment: Testing | | EXTERNAL | | | Urine | performed at [facility], [address] | | LAB | | | | [address], | | | | | | [place] [address] | | | | + + + + + + | Glucose, | NEGATIVEComment: Testing | mg/dL | EXTERNAL | | | Urine | performed at [facility], [address] | | LAB | | | | [address], | | | | | | [place] [address] | | | | + + + [...] LAB | | Testing performed at [facility];[address] [place] [address];[place] [address] MRSA PCR | | | NEGATIVE Testing performed at | | | [address];[place] [address] | | + + + + +---------+ [...] ISOLATED | | | Testing performed at [facility], [address] | | [place] [address] | | + + + + +---------+ [...] GROWTH | | | Testing performed at [facility], [address], | | | [place] [address] | | + + + + +---------+ [...] LAB | | | | Blvd;[place] [address] | | | | + + + + + + | Antibody | NEGATIVE | | EXTERNAL | | | Screen | | | LAB | | + + + + + + | Antibody | Testing performed at | | EXTERNAL | | | Screen | [facility];[address] | | LAB | | | | [address];[place] [address] | | | | + + + + + + | BB [facility] | [id number] | | EXTERNAL | | | | | | LAB | | + + + + + + | BB BAND | Testing performed at | | EXTERNAL | | | | [facility];[address] | | LAB | | | | [address];[place] [address] | | | | + + + [...]
--- OUTSIDE RECORDS SUMMARY | ~2019-08-24 | XMS | Encounter Summary ---
Demographics + + + | Address | [address] | | | [place] [address] | + + + | Home Phone | | + + + | Preferred Language | Unknown | + + + | Marital Status | | + + + | Adventism Affiliation | Unknown | + + + | Race | Unknown | + + + | Ethnic Group | Unknown | + + + Author + + + | Author | [facility] | | | and [place]leg[place] | + + + | Organization | [facility] | | [...] Team Providers + +------+ + | Care Dancing Teacher Name | Role | Phone | + +------+ + PCP | Unavailable | + +------+ + Encounter Details +--------+ + + + + | Date | Type | Department | Care Team | Description | +--------+ + + + + | 09/04/ | Hospital | [facility] | Conversion | Pain | | 2014 | Encounter | CONVERSION [address] | Transaction, | | | | | [address] | Provider Unknown | | | | | [place], [place] | [phone] | | | | | [phone] | | | | | | [phone] | | | +--------+ + + + [...]
--- OUTSIDE RECORDS SUMMARY | ~2019-08-24 | XMS | Encounter Summary ---
Demographics + + + | Address | [address] | | | [place] [address] | + + + | Home Phone [...] Team Providers + +------+ + | Care Car Body Inspector Name | Role | Phone | [...] + + | 07/06/ | Telephone | [place] | Tony Yuan, | Other (cancelling | | 2019 | | Orthopedics [address] | appointment ) | | | | [address] | [facility] [address] | | | | | [place], [place] | [place] [address] | | | | | [address] | [phone] | | | | | [phone] | | | +--------+ + + + [...]
--- OUTSIDE RECORDS SUMMARY | ~2019-08-24 | XMS | Clinical Summary ---
Demographics + + + | Address | [address] | | | [place] [address] | + + + | Home Phone | | + + + | Preferred Language | Unknown | + + + | Marital Status | | + + + | Worship Affiliation | Unknown | + + + | Race | Unknown | + + + | Ethnic Group | Unknown | + + + Author + + + | Author | [facility] (Historical as of | | | 05-06-19) | + + + | Organization | [facility] (Historical as of | | | 05-06-19) | + + + | Address | Unknown | + + + | Phone | Unavailable | + + + Support + + + + + | Name | Relationship | Address | Phone | + + + + + | Jay Jay Fortune | ECON | [address] | | | | | [place] | | | | | [address] | | + + + + + | Teressa Fortune | ECON | [place] | | | | | [address] | | + + + + + Care Team Providers + +------+ + | Care Framing Manager Name | Role | Phone | [...] | | [employer] | | 01/18/ | [id number] | | [id number]: Qty: 1 on | | | | | 2016 | / | | 10/11/2014 by Arlette, | | | | | | /[id number] | | Anthony HENRIQUEZ MD | | | | | | 21 | + +------+--------+ +--------+--------+--------+ | Algrft Dura Durgn Mtrx 3x3 | | Right: | [employer] | | 08/27/ | ID-[id number] | | Bx5 - [id number]: Qty: | | Brain | NEUROSCIENC | | 2016 | 5 / | | 1 on 05/28/2015 by Earl, | | | FRANCK - INNE | | | /[id number] | | Gloria Baumann MD | | | | | | 52 | + +------+--------+ +--------+--------+--------+ | Mesh Grid Hcd 11x7.5 | | Right: | [employer] - | | | 015-20 | | - - | | Brain | MEDT | | | - / | | [id number]: Qty: 1 on | | | | | | / | | 05/28/2015 by Gloria Elliott | | | | | | | | L, MD | | | | | | | + +------+--------+ +--------+--------+--------+ | Plate Dbl Y 3h 5mm - | | Right: | [employer] - | | | 015-23 | | [id number]: Qty: 2 on | | Brain | MEDT | | | 7 / | | 05/28/2015 by Gloria Elliott | | | | | | /[id number] | | L, MD | | | | | | 98 | + +------+--------+ +--------+--------+--------+ | Screw S/Tap 1.6x4.0 - | | Right: | [employer] - | | | [id number] | | [id number]: Qty: 14 on | | Brain | MEDT | | | 0 / / | | 05/28/2015 by Gloria Elliott | | | | | | | | L, MD | | | | | | | + +------+--------+ +--------+--------+--------+ | Plate Dogbone 8mm - | | Right: | [employer] - | | | 015-04 | | [id number]: Qty: 1 on | | Brain | MEDT | | | 2 / | | 05/28/2015 by Gloria Elliott | | | | | | /[id number] | | MD Ibis | | | | | | 59 | + +------+--------+ +--------+--------+--------+ | Screw S/Tap 1.6x4.0 - | | | [employer] - | | | [id number] | | [id number]: Qty: 8 on | | | MEDT | | | 0 | | 05/29/2015 by Gloria Elliott | | | | | | /[id number] | | MD Ibis | | | | | | 40 / | + +------+--------+ +--------+--------+--------+ | Algrft Dura Durgn Mtrx 3x3 | | | [employer] | | 08/20/ | ID-330 | | Bx5 - [id number]: Qty: | | | NEUROSCIENC | | 2016 | 5 | | 1 on 05/29/2015 by Earl, | | | FRANCK - MALIKA | | | /[id number] | | Gloria Baumann MD | | | | | | 5 | | | | | | | | /[id number] | | | | | | | [...] +------+-------+ + | MEDICAID | MEDICA | [id number] | | | [address] | | | [place] | | | | [place], [place] | | | [place] | | | | [address] | + +--------+ +------+-------+ + | [employer] | YELLOW | [id number] | | | | | PLANS | [...] | Self [birth year] Home: | [address] | | | al/Fam | | 1961 | [phone] | [place], | | | ryan | | | [phone] | [place] [address] | + +--------+ +--------+ + +
--- OUTSIDE RECORDS SUMMARY | ~2019-08-24 | XMS | Encounter Summary ---
Demographics + + + | Address | [address] | | | [place] [address] | + + + | Home Phone [...] Team Providers + +------+ + | Care Laboratory Chemical Assistant Name | Role | Phone | [...] | | | | [place], | | | | | | [place] [address] | | | +--------+ + + + [...] | | Patient: EVANS ASTORGA Med Rec: [id number] Sex M Bdate: 1960 | | Date/Time Data | | Entered Into [facility] | | Anesth PostOp | | Surgery Date [id number] 02/19/03 10:45 | | Anesthesiologist BARRETT HELLER 02/19/03 10:45 | | | + + documented in this encounter Visit Diagnoses Not on filedocumented in this encounter"
--- OUTSIDE RECORDS SUMMARY | ~2019-08-24 | XMS | Encounter Summary ---
Demographics + + + | Address | [address] | | | [place] [address] | + + + | Home Phone | | + + + | Preferred Language | Unknown | + + + | Marital Status | | + + + | Zoroastrianism Affiliation | Unknown | + + + | Race | Unknown | + + + | Ethnic Group | Unknown | + + + Author + + + | Author | [facility] | | | and [place]leg[place] | + + + | Organization | [facility] | | | [...] Team Providers + +------+ + | Care Pastry Wrapper Name | Role | Phone | + +------+ + PCP | Unavailable | + +------+ + Encounter Details +--------+ + + + + | Date | Type | Department | Care Team | Description | +--------+ + + + + | 09/11/ | Hospital | [facility] | Rosa Isela Vásquez, | End Stage Renal | | 2008 - | Encounter | [facility] | [address] | Disease (HCC) | | | | CARE FLOOR [address] | [facility] [address], | | | [address]/ | | [address] | [place] [address] | | | 2008 | | [place], [place] | [phone] | | | | | [address] | | | | | | [phone] | Maria Luisa Barry, | | | | | | [address] | | | | | | [place] [address] | | | | | | [phone] | | | | | | | [...] Performed At | + + + | [facility] | | | [facility] [address] | | | , | | | [id number]/RADIOLOGY Patient Name: EVANS MCGUIRE Date of | | | : 1960 Medical Record: [id number] Account: | | | [id number] I/P/JAZMÍN / Exam Date/Time: | | | [...] P A | | | 10:28 A /boom/[id number]/ cc: MD GIGI GARCIA | | | MD PEPITO | | + + + + + | Procedure Note | + + | Marlon Santamaria Conversion - 05/14/2019 10:02 PM PDT | | [facility] | | [facility] [address] | | , | | | | [id number]/RADIOLOGY | | | | Patient Name: EVANS MCGUIRE | | Date of : 1960 | | Medical Record: [id number] | | Account: [id number] | | I/P/[facility] / | | | | [...] | A | | A | | /boom/[id number]/ | | cc: JEFF AMANDA MD | | GIGI BEYER MD | + + XR Abdomen AP (09/12/2009 12:11 PM PST) + + | Specimen | + + | | + + + + + | Narrative | Performed At | + + + | [facility] | | | [facility] [address] | | | , | | | [id number]/RADIOLOGY Patient Name: EVANS MCGUIRE Date of | | | : 1960 Medical Record: [id number] Account: | | | [id number] I/P/[facility] / Exam Date/Time: | | [...] | | | 09/12/2009 01:48 P P J/carlota/[id number]/ cc: | | | MD GIGI ARTHUR MD | | + + + + + | Procedure Note | + + | Marlon Santamaria Conversion - 05/14/2019 10:02 PM PDT | | [facility] | | [facility] [address] | | , | | | | [id number]/RADIOLOGY | | | | Patient Name: EVANS MCGUIRE | | Date of : 1960 | | Medical Record: [id number] | | Account: [id number] | | I/P/CCC / | | | [...] | P | | P | | BRIAN/carlota/[id number]/ | | cc: JOE CASILLAS MD | | GIGI BEYER MD | + + MRI Brain Wo MRA Head Wo (09/12/2009 11:17 AM PST) + + | Specimen | + + | | + + + + + | Narrative | Performed At | + + + | [facility] | | | [facility] [address] | | | , | | | [id number]/RADIOLOGY Patient Name: EVANS MCGUIRE Date of | | | : 1960 Medical Record: [id number] Account: | | | [id number] I/P/JAZMÍN / Exam Date/Time: | | | [...] DT: | | | 09/12/2009 11:55 A [facility]/[id number]/ cc: JOE CASILLAS MD | | | MD GIGI TOSCANO MD | | + + + + + | Procedure Note | + + | Marlon Santamaria Conversion - 05/14/2019 10:02 PM PDT | | [facility] | | [facility] [address] | | , | | | | [id number]/RADIOLOGY | | | | Patient Name: EVANS MCGUIRE | | Date of : 1960 | | Medical Record: [id number] | | Account: [id number] | | I/P/[facility] / | | | | [...] | A | | A | | [facility]/[id number]/ | | cc: JOE CASILLAS MD | | MARIA LUISA BARRY MD | | GIGI BEYER MD | + + XR Chest 1 Vw (09/12/2009 5:40 AM PST) + + | Specimen | + + | | + + + + + | Narrative | Performed At | + + + | [facility] | | | [facility] [address] | | | , | | | [id number]/Diagnostic Outsourced Patient Name: EVANS MCGUIRE | | | Date of : 1960 Medical Record: [id number] Account: | | | [id number] I/P/[facility] / Exam Date/Time: | | [...] A A | | | 09:19 A RONALD/ccv/[id number]/ cc: MD LYNNE TOSCANO | | | MD GIGI VILLEGAS MD | | + + + + + | Procedure Note | + + | Marlon Santamaria Conversion - 05/14/2019 10:02 PM PDT | | [facility] | | [facility] [address] | | , | | | | [id number]/Diagnostic Outsourced | | | | Patient Name: EVANS MCGUIRE | | Date of : 1960 | | Medical Record: [id number] | | Account: [id number] | | I/P/[facility] / | | | | [...] | A | | A | | MM/ccv/[id number]/ | | cc: MARIA LUISA BARRY MD | | LYNNE VILLEGAS MD | | GIGI BEYER MD | + + CT Head wo Contrast (09/12/2009 2:49 AM PST) + + | Specimen | + + | | + + + + + | Narrative | Performed At | + + + | [facility] | | | [facility] [address] | | | , | | | [id number]/Diagnostic Outsourced Patient Name: EVANS MCGUIRE | | | Date of : 1960 Medical Record: [id number] Account: | | | [id number] I/P/[facility] / Exam Date/Time: | | [...] A A | | | 08:58 A MM/onel/[id number]/ cc: MD LYNNE TOSCANO | | | MD GIGI VILLEGAS MD | | + + + + + | Procedure Note | + + | Marlon Santamaria Conversion - 05/14/2019 10:02 PM PDT | | [facility] | | [facility] [address] | | , | | | | [id number]/Diagnostic Outsourced | | | | Patient Name: EVANS MCGUIRE | | Date of : 1960 | | Medical Record: [id number] | | Account: [id number] | | I/P/[facility] / | | | | [...] | A | | A | | MM/onel/[id number]/ | | cc: MARIA LUISA BARRY MD | | LYNNE VILLEGAS MD | | GIGI BEYER MD | + + XR Chest 1 Vw (09/11/2009 8:25 PM PST) + + | Specimen | + + | | + + + + + | Narrative | Performed At | + + + | [facility] | | | [facility] [address] | | | , | | | [id number]/RADIOLOGY Patient Name: EVANS MCGUIRE Date of | | | : 1960 Medical Record: [id number] Account: | | | [id number] I/P/[facility] / Exam Date/Time: | | [...] | | | 09/11/2009 11:01 P P DTB/gf/[id number]/ cc: | | | MD MARIA LUISA LITTLE MD HANI S | | | MD PEPITO | | + + + + + | Procedure Note | + + | Marlon Santamaria Conversion - 05/14/2019 10:02 PM PDT | | [facility] | | [facility] [address] | | , | | | | [id number]/RADIOLOGY | | | | Patient Name: EVANS MCGUIRE | | Date of : 1960 | | Medical Record: [id number] | | Account: [id number] | | I/P/CCC / | | | [...] | P | | P | | DTB//[id number]/ | | cc: RONNY RAYA MD | | MARIA LUISA BARRY MD | | GIGI BEYER MD | + + documented in this encounter Visit Diagnoses + + | Diagnosis | + + | End stage renal disease (HCC) End stage renal disease | + + documented in this encounter"
--- OUTSIDE RECORDS SUMMARY | ~2019-08-24 | XMS | Encounter Summary ---
Demographics + + + | Address | [address] | | | [place] [address] | + + + | Home Phone | | + + + | Preferred Language | Unknown | + + + | Marital Status | | + + + | Hoahaoism Affiliation | Unknown | + + + | Race | Unknown | + + + | Ethnic Group | Unknown | + + + Author + + + | Author | [facility] | | | and Olegarioana | + + + | Organization | [facility] | | | [...] Providers + +------+ + | Care Manager Athletics Name | Role | Phone | + +------+ + PCP | Unavailable | + +------+ + Encounter Details +--------+ + + + + | Date | Type | Department | Care Team | Description | +--------+ + + + + | 08/30/ | Hospital [facility] | [facility] | [facility] | [facility] | | | | | | CONV DEPT [address] | | | | | | [place], | | | | | | [place] [address] | | | | | | [phone] | | | +--------+ + + + [...]
--- OUTSIDE RECORDS SUMMARY | ~2019-08-24 | XMS | Encounter Summary ---
Demographics + + + | Address | [address] | | | [place] [address] | + + + | Home Phone [...] Team Providers + +------+ + | Care Atomic Process Engineer Name | Role | Phone | [...] [phone] | Anthony HENRIQUEZ MD | Comatose ([facility]); | | | | [address] | [phone] | Frequent falls; | | 10/29/ | | [place], [place] | [place] [address] | Seizure ([facility]); | | 2014 | | [address] | [phone] | Alcohol withdrawal | | | | [phone] | | (HCC); Cerebral | | | | | | edema ([facility]); | | | | | | Subdural hematoma, | | | | | | post-traumatic, | | | | | | sequela ([facility]); | | | | | | Traumatic brain | | | | | | injury, closed, | | | | | | sequela ([facility]) | +--------+ + + + [...] 1127 Date of Service: 11/12/141123 Status: Signed Grinder Set Up Operator Centerless: Cecilio Bravo MD (Physician) [facility] Service: Hospitalist Discharge Summary Date of Admission: 10/11/2014 Date of Discharge: 10/29/2014 Discharge Provider: Cecilio Bravo MD Treatment Team: Consulting Physician: Wing Lewsi Argueta MD Admitting Provider: Anthony Chong MD [...] and multiple falls. Per ED report from [facility]: he was drinking earlier today at home and fell twice. He went to bed and then he was noted to be having what they thought was seizure activity and th ey could not wake him and called EMS. He was taken to the ED at [facility] in [place] then transferred to the ED here for [...] and multiple falls who was transferred from [facility] due to a fall, seizures . CT [...] placement to improve s trength and mobility. dopster are working on finding placement which may take few days, however if accepted then can be discharged for rehabilitation Events Overnight: 2/2 pt still somewhat confused, thought he was in [place]. He knew that he fell, but didn [...] scussion. CM routed updated medical notes to [facility] and [facility]. PT recommending SNF. Lewis Christy spoke w/ Tyler at [facility] and Mary Beth at [facility], efaxed updated medical information, bot h are [...] at this time; planned for placement in [place] once patient is off sitter for 48 hrs. Otherwise patient continues to interact appropriately at this time and no impulsiveness is shown. Patient is mostly in chair or in bed and sleeping. 10/27 pt is alert today, no complications. Continue with PT. Pt without sitter. Pending place ment still. 10/28 planning re-evaluation of patient's status for admission to [place]. Pt otherwise is not impulsive, mostly calm [...] FOR BLEED; Surgeon: Anthony Chong MD; Location: [facility] IN OR; Service: Neurosurgery; Laterality: Right; Craniectomy Right 10/11/2014 Procedure: CRANIECTOMY; Surgeon: Anthony Chong MD; Location: [facility] OR; Ser vice: Neurosurgery; Laterality: Right; [...] on file. Follow up: Anthony Chong MD [address] [place] [address] Call right away to schedule an appointment [...] 10/29/141122 Date of Service: 10/29/141122 Status: Signed Grinder Set Up Operator Centerless: Cecilio Bravo MD (Physician) [facility] Service: Hospitalist Progress Note Hospital Day: LOS: 18 days Post-Op Day: 11 Days Post-Op SUBJECTIVE Patient Summary: Per ICU note: The patient is a 53 y.o. male with significant past medical history of chronic alcohol abus e and multiple falls. Per ED report from [facility]: he was drinking earlier today at home and fell twice. He went to bed and then he was noted to be having what they thought was seizure activity and th ey could not wake him and called EMS. He was taken to the ED at [facility] in [place] a nd then transferred to [...] and multiple falls who was transferred from [facility] due to a fall, seizures . CT [...] placement to improve s trength and mobility. dopster are working on finding placement which may take few days, however if accepted then can be discharged for rehabilitation Events Overnight: 2/2 pt still somewhat confused, thought he was in [place]. He knew that he fell, but didn [...] Oct 17 2014 7:38AM Referring Provider Line: [phone] ID: [id number] Ct Head Without Contrast 10/16/2014 [...] Oct 16 2014 6:08AM Referring Provider Line: [phone] E ID: [id number] PROBLEM LIST ASSESSMENT & [...] iscussion. CM routed updated medical notes to [facility] and [facility]. PT recommending SNF. CM spoke w/ Tyler at [facility] and Mary Beth at [facility], efaxed updated medical information, grace th are [...] at this time; planned for placement in [place] once patient is off sitter for 48 hrs. Otherwise patient continues to interact appropriately at this time and no impulsiveness is shown. Patient is mostly in chair or in bed and sleeping. 10/27 pt is alert today, no complications. Continue with PT. Pt without sitter. Pending plac ement still. 10/28 planning re-evaluation of patient's status for admission to [place]. Pt otherwise is not impulsive, mostly calm [...] this encounter Progress Notes Emilie Sutherland MS CCC-AVP - 10/29/2014 3:00 PM PSTFormatting of this note might be diffe rent from the original. Therapy Progress Note by Emilie Sutherland MS CCC-AVP at 10/29/14 1500 Author: Emilie Sutherland MS CCC-AVP Service: (none) Author Type: Speech Therapist Filed: 10/29/14 1507 Date of Service: 10/29/14 1500 Status: Signed Grinder Set Up Operator Centerless: Emilie Sutherland MS CCC-AVP (Speech Therapist) 10/29/14 1500 AVP Last Visit AVP Received On 10/29/14 Requires AVP Follow Up No pt is being discharged from the hospital shortly. onversion T ransaction, Provider Unknown - 10/29/2014 11:18 AM PSTFormatting of this note might be diffe rent from the original. Case Management by TABITHA Armstrong at 10/29/14 1118 Author: TABITHA Armstrong Service: (none) Author Type: Milling Supervisor Filed: 10/29/14 1119 Date of Service: 10/29/14 1118 Status: Signed Grinder Set Up Operator Centerless: TABITHA Armstrong (Milling Supervisor) TELMA faxed MD's discharge orders to [facility] and arranged for a copy of pt's chart to be sent with pt. TELMA arranged for ambulance transport due to pt's confusion and risk of re-in jury of Subdural Hematoma/Craniotomy . CM notified pt & family of the discharge time. Pt had no other resource concerns. Discharge Plan: [facility] Jem NEILSW onver alem Transaction, Provider Unknown - 10/29/2014 10:35 AM PST Therapy Progress Note by ИВАН Elaine at 10/29/14 1035 Author: ИВАН Elaine Service: (none) Author Type: Massage Therapist Filed: 10/29/14 1035 Date of Service: 10/29/14 1035 Status: Signed Grinder Set Up Operator Centerless: ИВАН Elaine (Massage Therapist) 10/29/14 1035 Massage Therapy Interventions Locations Back;Neck;Shoulder Massage Therapy Technique Effleurage;Petrissage;Qatari massage Response to treatment Decreased muscle tension onver alem Transaction, Provider Unknown - 10/29/2014 10:05 AM PST Nurse Progress Note by Angelina Meade RN at 10/29/14 1005 Author: Angelina Meade RN Service: (none) Author Type: Registered Nurse Filed: 10/29/14 1044 Date of Service: 10/29/14 100 Status: Signed Grinder Set Up Operator Centerless: Angelina Meade RN (Registered Nurse) Report given to MICHELL Corral at [facility] orcas Cintron, PT - 10/29/2014 9:20 AM PSTFormatting of this note might be different from t he original. Therapy Progress Note by Dorcas Holguin PT at 10/29/14919 Author: Dorcas Holguin PT Service: (none) Author Type: Physical Therapist Filed: 10/29/14 1112 Date of Service: 10/29/14919 Status: Signed Grinder Set Up Operator Centerless: Dorcas Holguin PT (Physical Therapist) 10/29/14919 PT Last Visit PT Received On 10/29/14 Reason for Treatment Brain injury Requires PT Follow Up Yes Follow up PT Only? No Focus for Next Treatment Formal Balance Assessment PT Eval/Reassessment Date 10/29/14 Assistance Required 2 person Bakery Helper Needed No Precautions Other Precautions helmet when [...] Barriers to Discharge Physical Deficits Impacting Functional [place];Self-care Deficit s Impacting Functional [place] Recommendation Comments Pt may be discharging to SNF today if ready. Cecilio Briones MD - 10/28/2014 3:03 PM PST . Progress Notes by Cecilio Bravo MD at 10/28/14 1501 Author: Cecilio Bravo MD Service: Hospitalist Author Type: Physician Filed: 10/28/14 1509 Date of Service: 10/28/14 150 Status: Signed Grinder Set Up Operator Centerless: Cecilio Bravo MD (Physician) [facility] Service: Hospitalist Progress Note Hospital Day: LOS: 17 days Post-Op Day: 11 Days Post-Op SUBJECTIVE Patient Summary: Per ICU note: The patient is a 53 y.o. male with significant past medical history of chronic alcohol abus e and multiple falls. Per ED report from [facility]: he was drinking earlier today at home and fell twice. He went to bed and then he was noted to be having what they thought was seizure activity and th ey could not wake him and called EMS. He was taken to the ED at [facility] in [place] a [place] then transferred to the ED here for [...] and multiple falls who was transferred from [facility] due to a fall, seizures . CT [...] placement to improve s trength and mobility. dopster are working on finding placement which may [...] Oct 17 2014 7:38AM Referring Provider Line: [phone] ID: [id number] Ct Head Without Contrast 10/16/2014 [...] Oct 16 2014 6:08AM Referring Provider Line: [phone] E ID: [id number] PROBLEM LIST ASSESSMENT & [...] iscussion. CM routed updated medical notes to [facility] and [facility]. PT recommending SNF. CM spoke w/ Tyler at [facility] and Mary Beth at [facility], efaxed updated medical information, grace th are [...] at this time; planned for placement in [place] once patient is off sitter for 48 hrs. Otherwise patient continues to interact appropriately at this time and no impulsiveness is shown. Patient is mostly in chair or in bed and sleeping. 10/27 pt is alert today, no complications. Continue with PT. Pt without sitter. Pending plac ement still. 10/28 planning re-evaluation of patient's status for admission to [place]. Pt otherwise is not impulsive, mostly calm [...] Bravo MD 10/28/2014 Maria Teresa Dhillon MA, CCC-AVP - 10/27/2014 4:14 PM PST Therapy Progress Note by MS KT Hayes-AVP at 10/27/14 9574 Author: MS KT Hayes-AVP Service: (none) Author Type: Speech Therapist Filed: 10/27/14 9805 Date of Service: 10/27/141613 Status: Signed Grinder Set Up Operator Centerless: MS KT Hayes-AVP (Speech and Language Pathologist) 10/27/14 1600 Swallowing Assessment Eval Swallowing Treatment Yes Consistencies Consistencies Assessed Yes Thin Presentation Cup;Self Fed Oral Phase Thin WFL Pharyngeal Phase Cough - immediate;Delayed swallow initiated;Decreased laryngeal elevation upon palpation [place]rington Presentation Self Fed;Cup Oral WFL Pharyngeal Phase No overt signs or symptoms of aspiration Dysphagia Mechanically Altered Presentation Spoon Oral Phase WFL Pharyngeal Phase No overt signs or symptoms of aspiration;Cough - Delayed (pt required cues to swallow - pt very agitated during trials) Recommendations Liquids Consistency Recommendations Torrington thick Diet Consistency Recommendation Pureed Recommendations Dysphagia [...] Goals Pt will have safe/efficient oral intake Torrington thick liquids;Puree diet;With feeding sherley t;Goal progressing Pt will tolerate diet upgrade trials With 1:1 supervision;Goal progressing onver alem Transaction, Provider Unknown - 10/27/2014 2:10 PM PST Therapy Progress Note by Katherin Garay PT at 10/27/14 9837 Author: Katherin Garay PT Service: (none) Author Type: Physical Therapist Filed: 10/27/14 0670 Date of Service: 10/27/141409 Status: Signed Grinder Set Up Operator Centerless: Katherin Bohnet, PT (Physical Therapist) 10/27/14 1410 PT Last Visit PT Received On 10/27/14 Reason for Treatment Brain injury (TBI R SDH) Requires PT Follow Up Yes Follow up PT Only? Yes Assistance Required 2 person Bakery Helper Needed No Precautions Other Precautions helmet when [...] Barriers to Discharge Physical Deficits Impacting Functional [place];Self-care Deficit s Impacting Functional [place] onver alem Willard, Provider Unknown - 10/27/2014 11:15 AM PST Therapy Progress Note by CADEN Mcgowan at 10/27/14 1115 Author: CADEN Mcgowan Service: (none) Author Type: Occupational Therapist Filed: 10/27/14 1230 Date of Service: 10/27/14 1115 Status: Signed Grinder Set Up Operator Centerless: CADEN Mcgowan (Occupational Therapist) 10/27/14 1115 OT Last Visit OT Received On 10/27/14 Reason for Treatment Brain injury Requires OT Follow Up Yes Assistance Required 2 person Bakery Helper Needed No Family/Caregiver Present No Precautions Other [...] Acute OT;SNF Equipment Recommended Shower chair with back;Networking Engineer;HHSH;Bedside commode Education Completed: Education Topic: ADLs, fine [...] commode, shower chair, hand held shower head, pit furnace melter Cognitive deficits impacting functional independence-would benefit from [...] 1402 Date of Service: 10/27/14807 Status: Signed Grinder Set Up Operator Centerless: Cecilio Bravo MD (Physician) [facility] Service: Hospitalist Progress Note Hospital Day: LOS: 16 days Post-Op Day: 11 Days Post-Op SUBJECTIVE Patient Summary: Per ICU note: The patient is a 53 y.o. male with significant past medical history of chronic alcohol abus e and multiple falls. Per ED report from [facility]: he was drinking earlier today at home and fell twice. He went to bed and then he was noted to be having what they thought was seizure activity and th ey could not wake him and called EMS. He was taken to the ED at [facility] in [place] a nd then transferred to the ED [...] and multiple falls who was transferred from [facility] due to a fall, seizures . CT [...] placement to improve s trength and mobility. dopster are working on finding placement which may take few days, however if accepted then can be discharged for rehabilitation Events Overnight: 10/22 pt still somewhat confused, thought he was in [place]. He knew that he fell, but didn [...] Oct 17 2014 7:38AM Referring Provider Line: [phone] ID: [id number] Ct Head Without Contrast 10/16/2014 [...] Oct 16 2014 6:08AM Referring Provider Line: [phone] E ID: [id number] PROBLEM LIST ASSESSMENT & [...] iscussion. CM routed updated medical notes to [facility] and [facility]. PT recommending SNF. CM spoke w/ Tyler at [facility] and Mary Beth at [facility], efaxed updated medical information, grace th are [...] this time for planned for placement in [place] once patient is off sitter for 48 [...] Date of Service: 10/26/14 1631 Status: Signed Grinder Set Up Operator Centerless: CADEN Narvaez (Occupational Therapist) 10/26/14 1600 Time Calculation Start Time 1600 Stop Time 1615 Time Calculation (min) 15 min $ ADLs/IADLs ADLS/IADLS Charges Home management training $Home Management Training 8-22 mins Therapy Time 15 Minutes 10/26/14 1600 OT Last Visit OT Received On 10/26/14 Reason for Treatment Brain injury Requires OT Follow Up Yes Assistance Required 2 person Bakery Helper Needed No Family/Caregiver Present No Precautions Other [...] his mouth. about 4 rounds of gentle [id number] awakened. Activity Tolerance Activity Tolerance Patient limited [...] elevated Grooming Final Score 5 Comprehension (in kalispel language) 3 - Patient requires moderate assist to comprehend DUE TO? needing parts of sentences repea stephenie 2 - Patient requires maximal assist to comprehend DUE TO? only understanding simple express ions Comprehension Final Score 2 - Maximal assistance Expression (in kalispel language) 2 - Patient requires maximal assist [...] Date of Service: 10/26/14 1554 Status: Signed Grinder Set Up Operator Centerless: CADEN Narvaez (Occupational Therapist) Chart opened in error onversion Transa ction, Provider Unknown - 10/26/2014 1:34 PM PST Progress Notes by Anna Venegas RD at 10/26/14 1334 Author: Anna Venegas RD Service: (none) Author Type: Registered Dietitian Filed: 10/26/14 1347 Date of Service: 10/26/14 1334 Status: Signed Grinder Set Up Operator Centerless: Anna Venegas RD (Doyle Dietitian) Nutrition Follow-Up [...] on current weight of 85 kg Kcal: 3805-0275 (25-30 kcal/kg) Protein: 102-128 gr (1.2-1.5 gr/kg) [...] (none) Author Type: Physical Therapist Filed: 10/26/14 0675 Date of Service: 10/26/14 1313 Status: Signed Grinder Set Up Operator Centerless: Thalia Simmons PT (Physical Therapist) 10/26/14 1313 [...] 10/26/148 Date of Service: 10/26/141017 Status: Signed Grinder Set Up Operator Centerless: ИВАН Elaine (Massage Therapist) 10/26/14 1018 Massage Therapy Interventions Locations Back;Neck;Shoulder Massage Therapy Technique Effleurage;Petrissage;Qatari massage Response to treatment Decreased muscle tension;Decreased pain tegNatalee carmichael MS CCC-AVP - 10/26/2014 10:14 AM PST Therapy Progress Note by Natalee Plata MS CCC-AVP at 10/26/14 1014 Author: Natalee Plata MS CCC-AVP Service: (none) Author Type: Speech and Language Pathologist Filed: 10/26/14 1014 Date of Service: 10/26/144 Status: Signed Grinder Set Up Operator Centerless: Natalee Plata MS CCC-AVP (Speech and Language Pathologist) 10/26/14 0945 Swallowing Assessment Eval Swallowing Treatment Yes Initial Swallow Assessment Behavior/Cognition Cooperative;Neuro impairment Patient Positioning Upright in chair Consistencies Consistencies Assessed Yes Thin Presentation Cup;Self Fed Oral Phase Thin WFL Pharyngeal Phase Cough - immediate [place]rington Presentation Cup;Self Fed Oral WFL Pharyngeal Phase No overt signs or symptoms of aspiration Dysphagia Mechanically Altered Presentation Spoon Oral Phase WFL Pharyngeal Phase No overt signs or symptoms of aspiration Dysphagia Advanced Presentation Spoon Oral Phase WFL Pharyngeal Phase No overt signs or symptoms of aspiration Recommendations Liquids Consistency Recommendations Torrington thick Diet Consistency Recommendation Pureed Recommendations Dysphagia [...] treatment;Continue with current plan Natalee Plata MS CCC-AVP ljaylon, Me shari Baumann PT - 10/26/2014 8:58 AM PSTFormatting of this note might be different from the madelin booker. Therapy Progress Note by Thalia Simmons PT at 10/26/14 0858 Author: Thalia Simmons PT Service: (none) Author Type: Physical Therapist Filed: 10/26/14 0937 Date of Service: 10/26/14857 Status: Signed Grinder Set Up Operator Centerless: Thalia Simmons PT (Physical Therapist) 10/26/14 0858 PT Last Visit PT Received On 10/26/14 Reason for Treatment Brain injury (SDH. bone flap removed) Requires PT Follow Up Yes Follow up PT Only? Yes Assistance Required 2 person Bakery Helper Needed No Precautions Other Precautions helmet on [...] Barriers to Discharge Physical Deficits Impacting Functional [place];Self-care Deficit s Impacting Functional [place];Neurological Impairment (see comment);Pain VS: 117/82 87 98% ra Cecilio Briones MD - 10/26/2014 8:09 AM PST Progress Notes by Cecilio Bravo MD at 10/26/14808 Author: Cecilio Bravo MD Service: Hospitalist Author Type: Physician Filed: 10/26/14 0515 Date of Service: 10/26/14808 Status: Signed Grinder Set Up Operator Centerless: Cecilio Bravo MD (Physician) [facility] Service: Hospitalist Progress Note Hospital Day: LOS: 15 days Post-Op Day: 11 Days Post-Op SUBJECTIVE Patient Summary: Per ICU note: The patient is a 53 y.o. male with significant past medical history of chronic alcohol abus e and multiple falls. Per ED report from [facility]: he was drinking earlier today at home and fell twice. He went to bed and then he was noted to be having what they thought was seizure activity and th ey could not wake him and called EMS. He was taken to the ED at [facility] in [place] a nd then transferred to [...] and multiple falls who was transferred from [facility] due to a fall, seizures . CT [...] placement to improve s trength and mobility. dopster are working on finding placement which may take few days, however if accepted then can be discharged for rehabilitation Events Overnight: 2/ pt still somewhat confused, thought he was in [place]. He knew that he fell, but didn [...] Oct 17 2014 7:38AM Referring Provider Line: [phone] ID: [id number] Ct Head Without Contrast 10/16/2014 [...] Oct 16 2014 6:08AM Referring Provider Line: [phone] E ID: [id number] PROBLEM LIST ASSESSMENT & [...] iscussion. CM routed updated medical notes to [facility] and [facility]. PT recommending SNF. CM spoke w/ Tyler at [facility] and Mary Beth at [facility], efaxed updated medical information, grace th are [...] this time for planned for placement in [place] once patient is off sitter for 48 [...] Notes by Cecilio Bravo MD at 10/25/14 4011 Author: Cecilio Bravo MD Service: Hospitalist Author Type: Physician Filed: 10/25/14 0539 Date of Service: 10/25/141623 Status: Signed Grinder Set Up Operator Centerless: Cecilio Bravo MD (Physician) [facility] Service: Hospitalist Progress Note Hospital Day: LOS: 14 days Post-Op Day: 11 Days Post-Op SUBJECTIVE Patient Summary: Per ICU note: The patient is a 53 y.o. male with significant past medical history of chronic alcohol abus e and multiple falls. Per ED report from [facility]: he was drinking earlier today at home and fell twice. He went to bed and then he was noted to be having what they thought was seizure activity and th ey could not wake him and called EMS. He was taken to the ED at [facility] in [place] a nd then transferred to the ED [...] and multiple falls who was transferred from [facility] due to a fall, seizures . CT [...] placement to improve s trength and mobility. dopster are working on finding placement which may [...] Oct 17 2014 7:38AM Referring Provider Line: [phone] ID: [id number] Ct Head Without Contrast 10/16/2014 [...] Oct 16 2014 6:08AM Referring Provider Line: [phone] E ID: [id number] PROBLEM LIST ASSESSMENT & [...] iscussion. CM routed updated medical notes to [facility] and [facility]. PT recommending SNF. CM spoke w/ Tyler at [facility] and Mary Beth at [facility], efaxed updated medical information, grace th are [...] Cecilio Bravo MD 10/25/2014 Lin Richardson MS CCC-AVP - 10/25/2014 3:31 PM PST Therapy Progress Note by Emilie Sutherland MS CCC-AVP at 10/25/14 1531 Author: Emilie Sutherland MS CCC-AVP Service: (none) Author Type: Speech Therapist Filed: 10/25/14 1532 Date of Service: 10/25/14 1531 Status: Signed Grinder Set Up Operator Centerless: Emilie Sutherland MS CCC-AVP (Speech Therapist) 10/25/14 1531 AVP Last Visit AVP Received On 10/25/14 Requires AVP Follow Up Unavailable (pt asleep and has [...] Date of Service: 10/25/14 1145 Status: Signed Grinder Set Up Operator Centerless: Trina Maldonado PT (Physical Therapist) 10/25/14 1145 PT Last Visit PT Received On 10/25/14 Reason for Treatment Brain injury (right SDH) Requires PT Follow Up Yes Follow up PT Only? Yes Assistance Required 2 person Bakery Helper Needed No Precautions Other Precautions helmet for [...] Author: TABITHA Armstrong Service: (none) Author Type: Milling Supervisor Filed: 10/25/14 1003 Date of Service: 10/25/14 1002 Status: Signed Grinder Set Up Operator Centerless: TABITHA Armstrong (Milling Supervisor) CM received a phone call from Loan at [facility] who agreed to accept pt once he dem onstrates he does not require a sitter for 48hrs. Jem NOEL onver alem Transaction, Provider Unknown - 10/24/2014 2:43 PM PST Case Management by TABITHA Armstrong at 10/24/14 1443 Author: TABITHA Armstrong Service: (none) Author Type: Milling Supervisor Filed: 10/24/14 5478 Date of Service: 10/24/14 4183 Status: Signed Grinder Set Up Operator Centerless: TABITHA Armstrong (Milling Supervisor) CM phoned both [facility] to see if they can accept pt. [facility] declined to accept pt. [facility] is still considering him. CM faxed a referral to [facility] as well. Jem NOEL Camille Montaño MD - 10/24/2014 2:00 PM PSTFormatting of this note might be different from marylou cook original. Progress Notes by Cecilio Bravo MD at 10/24/14 1400 Author: Cecilio Bravo MD Service: Hospitalist Author Type: Physician Filed: 10/24/14 1401 Date of Service: 10/24/14 1400 Status: Signed Grinder Set Up Operator Centerless: Cecilio Bravo MD (Physician) [facility] Service: Hospitalist Progress Note Hospital Day: LOS: 13 days Post-Op Day: 11 Days Post-Op SUBJECTIVE Patient Summary: Per ICU note: The patient is a 53 y.o. male with significant past medical history of chronic alcohol abus e and multiple falls. Per ED report from [facility]: he was drinking earlier today at home and fell twice. He went to bed and then he was noted to be having what they thought was seizure activity and th robbie could not wake him and called EMS. He was taken to the ED at [facility] in [place] a nd then transferred to [...] and multiple falls who was transferred from [facility] due to a fall, seizures . CT [...] placement to improve s trength and mobility. dopster are working on finding placement which may take few days, however if accepted then can be discharged for rehabilitation Events Overnight: 2/2 pt still somewhat confused, thought he was in [place]. He knew that he fell, but didn [...] Oct 17 2014 7:38AM Referring Provider Line: [phone] ID: [id number] Ct Head Without Contrast 10/16/2014 [...] Oct 16 2014 6:08AM Referring Provider Line: [phone] E ID: [id number] PROBLEM LIST ASSESSMENT & [...] iscussion. CM routed updated medical notes to [facility] and [facility]. PT recommending SNF. CM spoke w/ Tyler at [facility] and Mary Beth at [facility], efaxed updated medical information, grace th are [...] MD 10/24/2014 ovarbritni ospina, Jessica Christy MA, CCC-AVP - 10/24/2014 11:48 AM PST Therapy Progress Note by Jessica Headley MA CCC-AVP at 10/24/14 1148 Author: Jessica Headley MA CCC-AVP Service: (none) Author Type: Speech and Language Pathologist Filed: 10/24/14 1148 Date of Service: 10/24/14 1148 Status: Signed Grinder Set Up Operator Centerless: Jessica Headley MA CCC-AVP (Speech and Language Pathologist) 10/24/14 1123 Swallowing Assessment Eval Swallowing Treatment Yes Initial Swallow Assessment Behavior/Cognition Cooperative;Alert Consistencies Consistencies Assessed Yes Thin Presentation Cup;Spoon Oral Phase Thin WFL Pharyngeal Phase Cough - immediate (immediate coughing with thins via cup) Torrington Presentation Cup;Self Fed Oral WFL Pharyngeal Phase No overt signs or symptoms of aspiration Puree Presentation Spoon Oral Phase WFL Pharyngeal No overt signs or symptoms of aspiration;Delayed Swallow Recommendations Liquids Consistency Recommendations Torrington thick Diet Consistency Recommendation Pureed Recommendations Dysphagia [...] Goals Pt will have safe/efficient oral intake Torrington thick liquids;Puree diet;With feeding sherley t;Goal progressing Pt will tolerate diet upgrade trials With 1:1 supervision;Goal progressing onver alem Willard, Provider Unknown - 10/24/2014 10:07 AM PST Therapy Progress Note by ИВАН Elanie at 10/24/14 1007 Author: ИВАН Elaine Service: (none) Author Type: Massage Therapist Filed: 10/24/14 1007 Date of Service: 10/24/14 1007 Status: Signed Grinder Set Up Operator Centerless: ИВАН Elaine (Massage Therapist) 10/24/14 1007 Massage Therapy Interventions Locations Back;Neck;Shoulder Massage Therapy Technique Effleurage;Petrissage;Qatari massage Response to treatment Decreased muscle tension Camille Montaño MD - 10/23/2014 4:38 PM PSTFormatting of this note might be different from th e original. Progress Notes by Cecilio Bravo MD at 10/23/14 1638 Author: Cecilio Bravo MD Service: Hospitalist Author Type: Physician Filed: 10/23/14 1641 Date of Service: 10/23/14 1638 Status: Signed Grinder Set Up Operator Centerless: Cecilio Bravo MD (Physician) [facility] Service: Hospitalist Progress Note Hospital Day: LOS: 12 days Post-Op Day: 11 Days Post-Op SUBJECTIVE Patient Summary: Per ICU note: The patient is a 53 y.o. male with significant past medical history of chronic alcohol abus e and multiple falls. Per ED report from [facility]: he was drinking earlier today at home and fell twice. He went to bed and then he was noted to be having what they thought was seizure activity and th ey could not wake him and called EMS. He was taken to the ED at [facility] in [place] a nd then transferred to the ED [...] and multiple falls who was transferred from [facility] due to a fall, seizures . CT [...] placement to improve s trength and mobility. dopster are working on finding placement which may take few days, however if accepted then can be discharged for rehabilitation Events Overnight: 2/2 pt still somewhat confused, thought he was in [place]. He knew that he fell, but didn [...] Oct 17 2014 7:38AM Referring Provider Line: [phone] ID: [id number] Ct Head Without Contrast 10/16/2014 [...] Oct 16 2014 6:08AM Referring Provider Line: [phone] E ID: [id number] PROBLEM LIST ASSESSMENT & [...] iscussion. CM routed updated medical notes to [facility] and [facility]. PT recommending SNF. CM spoke w/ Tyler at [facility] and Mary Beth at [facility], efaxed updated medical information, grace th are [...] Management by Yeimi Ruiz RN at 10/23/14 0131 Author: Yeimi Ruiz RN Service: (none) Author Type: Registered Nurse Filed: 10/23/14 1640 Date of Service: 10/23/14 2183 Status: Signed Grinder Set Up Operator Centerless: Yeimi Ruiz RN (Registered Nurse) CM received a call from Sherry who is the Community Health Nurse from the [facility]. ([phone] and fax [phone]) She states that she can assist with [...] (none) Author Type: Physical Therapist Filed: 10/23/14 0596 Date of Service: 10/23/14 1140 Status: Signed Grinder Set Up Operator Centerless: Amara Duran PT (Physical Therapist) 10/23/14 1140 PT Last Visit PT Received On 10/23/14 Reason for Treatment Brain injury (right SDH) Requires PT Follow Up Yes Follow up PT Only? Yes Focus for Next Treatment Formal Balance Assessment;Bed Mobility Technique;Transfer Techniqu e Assistance Required 2 person Bakery Helper Needed No Precautions Other Precautions kye for [...] Barriers to Discharge Physical Deficits Impacting Functional Windsor Recommendation Comments Pt. continues to require maximal assist for all mobility needs. Sebastian l need further skilled PT to address deficits prior to return home. onver Larissa Carey Unknown - 10/23/2014 11:29 AM PST Therapy Progress Note by ИВАН Poole at 10/23/14 1129 Author: ИВАН Poole Service: (none) Author Type: Massage Therapist Filed: 10/23/14 1130 Date of Service: 10/23/14 1129 Status: Signed Grinder Set Up Operator Centerless: ИВАН Poole (Massage Therapist) 10/23/14 1100 Massage Therapy Interventions Locations Back;Neck;Shoulder Massage Therapy Technique Effleurage;Petrissage;Qatari massage;Trigger point Response to treatment Decreased pain;Decreased [...] 10/22/141825 Date of Service: 10/22/141810 Status: Signed Grinder Set Up Operator Centerless: Cecilio Bravo MD (Physician) [facility] Service: Hospitalist Progress Note Hospital Day: LOS: 11 days Post-Op Day: 11 Days Post-Op SUBJECTIVE Patient Summary: Per ICU note: The patient is a 53 y.o. male with significant past medical history of chronic alcohol abus e and multiple falls. Per ED report from [facility]: he was drinking earlier today at home and fell twice. He went to bed and then he was noted to be having what they thought was seizure activity and th ey could not wake him and called EMS. He was taken to the ED at [facility] in [place] a nd then transferred to the ED [...] and multiple falls who was transferred from [facility] due to a fall, seizures . CT [...] placement to improve s trength and mobility. dopster are working on finding placement which may take few days, however if accepted then can be discharged for rehabilitation Events Overnight: 2/ pt still somewhat confused, thought he was in [place]. He knew that he fell, but didn [...] not Normocephalic, traumatic; midline cranial incision with diamnod, incision clean, dry, and intact. Indentation of [...] Oct 17 2014 7:38AM Referring Provider Line: [phone] ID: [id number] Ct Head Without Contrast 10/16/2014 [...] Oct 16 2014 6:08AM Referring Provider Line: [phone] E ID: [id number] PROBLEM LIST ASSESSMENT & [...] iscussion. CM routed updated medical notes to [facility] and [facility]. PT recommending SNF. CM spoke w/ Tyler at [facility] and Mary Beth at [facility], efaxed updated medical information, grace th are [...] Cecilio Bravo MD 10/22/2014 Lin Richardson, MS CCC-AVP - 10/22/2014 3:22 PM PST Therapy Progress Note by Emilie Sutherland MS CCC-AVP at 10/22/14 1522 Author: Emilie Sutherland MS CCC-AVP Service: (none) Author Type: Speech Therapist Filed: 10/22/14 1522 Date of Service: 10/22/14 1522 Status: Signed Grinder Set Up Operator Centerless: Emilie Sutherland MS CCC-AVP (Speech Therapist) 10/22/14 5640 AVP Last Visit AVP Received On 10/22/14 Requires AVP Follow Up Unavailable (attempted pt just given pain meds, very tired) Attempted to do trials, however pt every difficulty to keep wake. onversion T ransaction, Provider Unknown - 10/22/2014 3:15 PM PSTFormatting of this note might be diffe rent from the original. Case Management by TABITHA Dejesus at 10/22/14 1515 Author: TABITHA Dejesus Service: (none) Author Type: Laborer Concrete Paving Filed: 10/22/14 1527 Date of Service: 10/22/14 1515 Status: Addendum Grinder Set Up Operator Centerless: TABITHA Dejesus (Laborer Concrete Paving) Related Notes: Original Note by TABITHA Dejesus (Laborer Concrete Paving) filed at 10/22/14 1518 CM attempted to meet pt for d/c planning. CM could not arouse pt for discussion. CM route d updated medical notes to [facility] and [facility]. PT recommending SNF. CM spoke w/ Tyler at [facility] and Mary Beth at [facility], efaxed updated medical information, both are looking [...] Date of Service: 10/22/14 1435 Status: Addendum Grinder Set Up Operator Centerless: Jennifer Alberts RD (Registered Dietitian) Related Notes: [...] time; Cr .65 (L). Nutrition-focused physical findings: AVP following for dysphagia. Diet order/current intake: Pureed, [...] offered daily. Recommendations: 1. Continue diet per AVP. 2. Magic cups with meal trays. 3. Monitor pt's weight. 4. Offer high calorie foods on meal trays. Monitoring: Will follow up in 4 days per nutrition protocol. Jennifer Alberts MS, agronomy internship, 10/22/14. onver alem Transaction, Provider Unknown - 10/22/2014 9:56 AM PST Therapy Progress Note by ИВАН Elaine at 10/22/14955 Author: ИВАН Elaine Service: (none) Author Type: Massage Therapist Filed: 10/22/1456 Date of Service: 10/22/14955 Status: Signed Grinder Set Up Operator Centerless: Pelon M Bryner, LMP (Massage Therapist) 10/22/14 [...] 1104 Date of Service: 10/22/14899 Status: Signed Grinder Set Up Operator Centerless: Dorcas Holguin PT (Physical Therapist) 10/22/14899 PT Last Visit PT Received On 10/22/14 Reason for Treatment (R SDH) Requires PT Follow Up Yes Follow up PT Only? Yes Focus for Next Treatment Formal Balance Assessment;Bed Mobility Technique;Transfer Techniqu e PT Eval/Reassessment Date 10/22/14 Assistance Required 2 person Bakery Helper Needed No Precautions Other Precautions helmet when [...] oriented to self also remembers RN and CASUAL SHOE INSPECTOR;s name. Bed Mobility Rolling Moderate assist Supine [...] advance LLE however leg neal) Assistive Device (IT PROGRAM ENGAGEMENT DIRECTOR on 2 therapists) Static Sitting Balance Static [...] 1411 Date of Service: 10/21/14845 Status: Addendum Grinder Set Up Operator Centerless: Travon Mitchell MD (Physician) Related Notes: Original Note by Travon Mitchell MD (Physician) filed at 10/21/14 14 07 [facility] Service: Hospitalist Progress Note Tony Edouardcharlene 53 y.o. [id number] 438/[id number] male PER PT NONE Hospital Day: LOS: 10 days SUBJECTIVE Patient Summary: Patient is a 53 year old male with past medical history of Chronic Alcohol Abuse, Dependenc e and multiple falls who was transferred from [facility] due to a fall, seizures . CT [...] placement to improve s trength and mobility. dopster are working on finding placement which may [...] acute distr ess. HEENT: Head: S/P Craniotomy. [place] at midline and temporo parietoccipital area of [...] and followed by Dr. N[facility]. He is making slow progress [...] Discharge plans to a SNF for rehabilitation. installation manager is working on placement which cou ld be challenging due to [place] Medicaid. His insurance may contribute in the [...] Date of Service: 10/20/14 1533 Status: Signed Grinder Set Up Operator Centerless: CADEN Narvaez (Occupational Therapist) 10/20/14 1500 OT [...] 1506 Date of Service: 10/20/14922 Status: Signed Grinder Set Up Operator Centerless: Travon Mitchell MD (Physician) [facility] Service: Hospitalist Progress Note Tony Fortune 53 y.o. [id number] 438/[id number] male PER PT NONE Hospital Day: LOS: 9 days SUBJECTIVE Patient Summary: Patient is a 53 year old male with past medical history of Chronic Alcohol Abuse, Dependenc e and multiple falls who was transferred from [facility] due to a fall, seizures . CT [...] in acute distress. HEENT: Head: S/P Craniotomy. [place] at midline and temporo parietoccipital area of [...] and now followed by Dr. Nj from [facility] rosurgery services. He is [...] Discharge plans to a SNF for rehab. installation manager is working on placement which could be harley llenging due to [place] Medicaid insurance and may delay the discharge till accepted at a [facility]. Spent more than 30 minutes [...] (none) Author Type: Occupational Therapist Filed: 10/19/14 4478 Date of Service: 10/19/14 1501 Status: Signed Grinder Set Up Operator Centerless: CADEN Mcgowan (Occupational Therapist) 10/19/14 1501 Precautions Other Precautions helmet on when OOB Home Environment Bathroom Shower/Tub Tub/shower unit;Shower unit with threshold (uses walk in shower) Bathroom Toilet Standard Bathroom Equipment Grab bars in shower/bath Additional Comments Refer to PT note for PLOF Prior Function Level of Windsor Independent with functional mobility;Independent with ADLs;Independe nt with IADLs Lives With Sibling(s) (stated living with brother) ADL Assistance Independent Home ADL's Independent ADL Eating Assistance Total (requiring 1:1 for feeding, per CASUAL SHOE INSPECTOR) Grooming Assistance Dependent (per CASUAL SHOE INSPECTOR) Grooming impacted by Cognitive deficits;Ability to follow [...] for ADLs/IADLs) Equipment Recommended Shower chair with back;Networking Engineer;HHSH;Grab bars withing home;Bedside co mmode Education Completed: [...] JAVIER Mcgowan, CSRS 10/19/2014 ovarJessica reis MA, CCC-AVP - 10/19/2014 2:12 PM PSTFormatting of this note might be differ ent from the original. Therapy Progress Note by Jessica Headley MA CCC-AVP at 10/19/14 1412 Author: Jessica Headley MA CCC-AVP Service: (none) Author Type: Speech and Language Pathologist Filed: 10/19/14 1413 Date of Service: 10/19/141411 Status: Signed Grinder Set Up Operator Centerless: Jessica Headley MA CCC-AVP (Speech and Language Pathologist) 10/19/14 1498 Swallowing Assessment Eval Swallowing Treatment Yes Initial Swallow Assessment Behavior/Cognition Lethargic Consistencies Consistencies Assessed Yes Thin Presentation Spoon;Cup Oral Phase Thin Anterior Spillage Left Pharyngeal Phase Delayed swallow initiated;Spontaneous double swallow;Cough - delayed Puree Presentation Spoon Oral Phase Increased oral holding time Pharyngeal Delayed Swallow;No overt signs or symptoms of aspiration Recommendations Liquids Consistency Recommendations Torrington thick Diet Consistency Recommendation Pureed (1-2 snacks [...] Notes by Debora Ott PA-C at 10/19/14 4408 Author: Debora Ott PA-C Service: Neurosurgery Author Type: Physician Inpatient Coder - Ce rtified Filed: 10/19/14 8471 Date of Service: 10/19/14 1513 Status: Signed Grinder Set Up Operator Centerless: Debora Ott PA-C (Physician Inpatient Coder - Certified) [facility] Service: Neurosurgery Progress Note Hospital Day: LOS: 8 days Post-Op Day: 8 Days Post-Op SUBJECTIVE Patient Summary: s/p craniectomy for large right SDH Events Overnight: Complaining of pain. IPR denied because he lives in [place], antoinette guardado on placement in [place]. Helmet arrived. Scheduled Medications docusate sodium 100 [...] Author: TABITHA Armstrong Service: (none) Author Type: Milling Supervisor Filed: 10/19/14 1418 Date of Service: 10/19/14 1346 Status: Addendum Grinder Set Up Operator Centerless: TABITHA Armstrong (Milling Supervisor) Related Notes: Original Note by TABITHA Armstrong (Milling Supervisor) filed at 10/19/14 1347 CM faxed a referral to [facility] in [place] and updated info to [facility] in [place]. CM faxed updated info to the [facility]. Jem NOEL Travon Lara MD - 10/19/2014 1:40 PM PSTFormatting of this note might be different from t he original. Progress Notes by Travon Mitchell MD at 10/19/14 1340 Author: Travon Mitchell MD Service: Hospitalist Author Type: Physician Filed: 10/19/148 Date of Service: 10/19/141339 Status: Signed Grinder Set Up Operator Centerless: Travon Mitchell MD (Physician) [facility] Service: Hospitalist Progress Note Tony Fortune 53 y.o. [id number] 438/438-1 male PER PT NONE Hospital Day: LOS: 8 days SUBJECTIVE Patient Summary: Patient is a 53 year old male with past medical history of Chronic Alcohol Abuse, Dependenc e and multiple falls who was transferred from [facility] due to a fall, seizures . CT [...] in acute distress. HEENT: Head: S/P Craniotomy. [place] at midline and temporo parietoccipital area of [...] and now followed by Dr. Nj from [facility] rosurgery services. He is [...] when stable to a SNF for rehab. installation manager is working on placement which could [...] Note by Thalia Simmons PT at 10/19/14 8391 Author: Thalia Simmons PT Service: (none) Author Type: Physical Therapist Filed: 10/19/14 7800 Date of Service: 10/19/14 2293 Status: Signed Grinder Set Up Operator Centerless: Thalia Simmons PT (Physical Therapist) 10/19/14 1153 PT Last Visit PT Received On 10/19/14 [...] Author: Crissy Maldonado Service: (none) Author Type: Plant Specialist Filed: 10/19/147 Date of Service: 10/19/141055 Status: Signed Grinder Set Up Operator Centerless: Crissy Maldonado I attempted to meet with the patient to discuss who his PCP is, however he was in patient c are. Crissy Maldonado-GPS Solderer Assembly Repair Wing Lewis Perry MD - 10/19/2014 9:01 AM PSTFormatting of this note might be different from the origi nal. Progress Notes by Wing Lewis Argueta MD at 10/19/14900 Author: Wing Lewis Argueta MD Service: (none) Author Type: Physician Filed: 10/19/14901 Date of Service: 10/19/14900 Status: Signed Grinder Set Up Operator Centerless: Wing Lewis Argueta MD (Physician) Patient seen [...] Notes by Rosa Lassiter RN at 10/19/14 4104 Author: Rosa Lassiter RN Service: (none) Author Type: Registered Nurse Filed: 10/19/148 Date of Service: 10/19/14445 Status: Signed Grinder Set Up Operator Centerless: Rosa Lassiter RN (Registered Nurse) Patient transported [...] Ott PA-C Service: Neurosurgery Author Type: Physician Inpatient Coder - Ce rtified Filed: 10/18/141434 Date of Service: 10/18/141431 Status: Signed Grinder Set Up Operator Centerless: Debora Ott PA-C (Physician Inpatient Coder - Certified) [facility] Service: Neurosurgery Progress Note Hospital Day: LOS: [...] (none) Author Type: Registered Dietitian Filed: 10/18/14 3556 Date of Service: 10/18/14 115 Status: Signed Grinder Set Up Operator Centerless: Maye Saleem RD, BRIAN (Registered Dietitian) Nutrition Follow-Up High-risk follow-up. Assessment: Has been very lethargic. Continues to have right-sided hemiparesis. Nutritionally pertinent labs: Electrolytes, BUN, and Cr are WNL. BG has been variable in th e 100s, no insulin ordered at this time. Nutrition-focused physical findings: Skin is intact. AVP continues to follow due to dysphag ia. Diet order/current intake: Puree snacks, 1-2 items per meal tray TID plus nectar thick liqu ids by spoon only. Per RN, pt had Lao toast and yogurt this morning and finished 95%. On IV fluids of NS at 30 mL/hr. Continues to receive folic acid and thiamine supplementatio n. Nutrition Diagnosis: Increased kcal/protein requirements related to catabolic illness and healing as evidenced b y TBI. Intervention: Continue diet per AVP recommendations. 1:1 feeds with all meals. Magic Cups to be sent with meal trays. Will monitor wt trend and f/u to provide further nutrition recs based on clinical course. Goal: PO intake will be adequate to meet pt's estimated nutritional requirements. Recommendations: 1) Continue diet per AVP. 2) Magic Cups with meal trays. Monitoring: Will follow up in 4 days or as indicated. Maye Saleem RD, CD, CNSC 10/18/2014 onver alem Transaction, Provider Unknown - 10/18/2014 11:07 AM PST Therapy Progress Note by Flaquito Platt PT at 10/18/14 1107 Author: Flaquito Platt PT Service: (none) Author Type: Physical Therapist Filed: 10/18/14 1532 Date of Service: 10/18/141106 Status: Signed Grinder Set Up Operator Centerless: Flaquito Platt PT (Physical Therapist) 10/18/14 1107 [...] AM PST Therapy Progress Note by DAYANARA Ross-AVP at 10/18/14912 Author: DAYANARA Ross-AVP Service: (none) Author Type: Speech and Language Patholo gist Filed: 10/18/14912 Date of Service: 10/18/14912 Status: Signed Grinder Set Up Operator Centerless: DAYANARA Ross-AVP (Speech and Language Pathologist) 10/18/14844 Swallowing Assessment Eval Swallowing Treatment Yes Initial Swallow Assessment Respiratory Status Room air Behavior/Cognition Requires cueing;Doesn't follow directions;Lethargic Dentition Adequate Vision Impaired for self-feeding Patient Positioning Upright in bed Volitional Cough Strong Consistencies Consistencies Assessed Yes Ice Chips Presentation Spoon Oral Phase Increased holding time Pharyngeal Phase No overt signs or symptoms of aspirations;Delayed swallow initiation [place]rington Presentation Cup Oral WFL;Increased Anterior to Posterior Transit Pharyngeal Phase Delayed swallow initiated;No overt signs or symptoms of aspiration;Decreas ed laryngeal elevation upon palpation Dysphagia Mechanically Altered Presentation Spoon Oral Phase Prolonged mastication;Increased holding time Pharyngeal Phase Cough - Delayed (cueing needed to swallow) Recommendations Liquids Consistency Recommendations Tor[place] thick Diet Consistency Recommendation Pureed;Other (comment) (1-2 [...] monitoring;Patient/Family education;Assessment for upgr khadijah Dysphagia Goals Front End Application Developer Goals Safe/efficient oral intake Pt will have safe/efficient oral intake Torrington thick liquids Pt will advanced diet in 3 days;Goal progressing Short Term Goals Tolerate diet Pt will tolerate diet upgrade trials With 1:1 supervision;Goal progressing Pt will tolerate diet Puree;with 1:1 supervision;With feeding assist;Goal progressing Mere Hardy MA CFY-AVP 10/18/2014 Travon Lara MD - 10/18/2014 8:36 AM PSTFormatting of this note might be different from lissett ruvalcaba. Progress Notes by Travon Mitchell MD at 10/18/14835 Author: Travon Mitchell MD Service: Hospitalist Author Type: Physician Filed: 10/18/14 1458 Date of Service: 10/18/14835 Status: Signed Grinder Set Up Operator Centerless: Travon Mitchell MD (Physician) [facility] Service: Hospitalist Progress Note Tony Leeclinton 53 y.o. [id number] -1 male PER PT NONE Hospital Day: LOS: 7 days SUBJECTIVE Patient Summary: Patient is a 53 year old male with past medical history of Chronic Alcohol Abuse, Dependenc e and multiple falls who was transferred from [facility] due to a fall, seizures . CT [...] Author: TABITHA Sidhu Service: (none) Author Type: Milling Supervisor Filed: 10/17/14 1049 Date of Service: 10/17/14 1048 Status: Signed Grinder Set Up Operator Centerless: TABITHA Sidhu (Milling Supervisor) Faxed updated clinical notes to [facility]. PT still not able to do a thorough eval as pt does not have his helmet yet. onver alem Transaction, Provider Unknown - 10/17/2014 10:38 AM PST Therapy Progress Note by Falquito Platt PT at 10/17/14 1038 Author: Flaquito Platt, PT Service: (none) Author Type: Physical Therapist Filed: 10/17/14 1611 Date of Service: 10/17/14 1038 Status: Signed Grinder Set Up Operator Centerless: Flaquito Platt PT (Physical Therapist) 10/17/14 1038 [...] OOB mobility assessment Maria Teresa Valdes MA, CCC-AVP - 10/17/2014 8:36 AM PSTFormatting of this note might be differ ent from the original. Therapy Progress Note by Maria Teresa Lucas MS CFY-AVP at 10/17/14 5519 Author: Maria Teresa Lucas MS CFY-AVP Service: (none) Author Type: Speech Therapist Filed: 10/17/14835 Date of Service: 10/17/14835 Status: Signed Grinder Set Up Operator Centerless: Maria Teresa Lucas MS CFY-AVP (Speech and Language Pathologist) 10/17/14824 Swallowing Assessment Eval Swallowing Treatment Yes Consistencies Consistencies Assessed Yes Torrington Presentation Cup Oral WFL;Increased Anterior to Posterior Transit Pharyngeal Phase No overt signs or symptoms of aspiration;Delayed swallow initiated;Decreas ed laryngeal elevation upon palpation;Spontaneous double swallow Recommendations Liquids Consistency Recommendations Torrington thick;Other (comments) (by spoon) Diet Consistency Recommendation [...] was observed to be tolerating breakfast before AVP walked in. Recommend cont. 1 puree snack [...] education;Assessment for upgr khadijah;Swallow strategies Dysphagia Goals Senior Living Goals Safe/efficient oral intake;Advanced diet Pt will have safe/efficient oral intake Torrington thick liquids;Puree diet;Goal progressing Pt will advanced [...] 0019 Date of Service: 10/17/14818 Status: Signed Grinder Set Up Operator Centerless: Travon Mitchell MD (Physician) [facility] Service: Hospitalist Progress Note Tony Fortune 53 y.o. [id number] - male PER PT NONE Hospital Day: LOS: 7 days SUBJECTIVE Patient Summary: Patient is a 53 year old male with past medical history of Chronic Alcohol Abuse, Dependenc e and multiple falls who was transferred from [facility] due to a fall, seizures . CT [...] in acute distress. HEENT: Head: S/P Craniotomy. [place] noted at the midline and temporo parietoccipital [...] Notes by Cyndy Nj MD at 10/17/14 0766 Author: Cyndy Nj MD Service: Neurosurgery Author Type: Physician Filed: 10/17/1448 Date of Service: 10/17/14744 Status: Signed Grinder Set Up Operator Centerless: Cyndy Nj MD (Physician) [facility] Service: Neurosurgery Progress Note Hospital Day: LOS: [...] Date of Service: 10/16/14 1430 Status: Signed Grinder Set Up Operator Centerless: CADEN Mcgowan (Occupational Therapist) 10/16/14 1430 OT Last Visit OT Received On 10/16/14 Requires OT Follow Up Unavailable (w/PT) Plan to follow up tomorrow for OT evaluation. JAVIER Mcgowan, CSRS 10/16/2014 Coral nichole, JENNIFER Arango - 10/16/2014 2:29 PM PSTFormatting of this note might be different f rom the original. Progress Notes by JENNIFER Small at 10/16/14 1429 Author: JENNIFER Small Service: Outside Dealer Sales Representative Author Type: Outside Dealer Sales Representative Filed: 10/16/14 1506 Date of Service: 10/16/14 1429 Status: Signed Grinder Set Up Operator Centerless: JENNIFER Small (Nurse Practitioner) [facility] Service: Outside Dealer Sales Representative Progress Note Tony Fortune 53 y.o. Date of Admission: 10/11/2014 Treatment Team: Consulting Physician: Anthony Chong MD Admitting Provider: Harika Apodaca MD CHIEF COMPLAINT: severe TBI, large right SDH with massive midline shift, IC hypertension HISTORY OF PRESENT ILLNESS The patient is a 53 y.o. male with significant past medical history of chronic alcohol abus e and multiple falls. Per ED report from [facility]: he was drinking earlier today at home and fell twice. He went to bed and then he was noted to be having what they thought was seizure activity and th ey could not wake him and called EMS. He was taken to the ED at [facility] in [place] a nd then transferred to the ED [...] FOR BLEED; Surgeon: Anthony Chong MD; Location: [facility] IN OR; Service: Neurosurgery; Laterality: Right; Craniectomy Right 10/11/2014 Procedure: CRANIECTOMY; Surgeon: Anthony Chong MD; Location: [facility] OR; Ser vice: Neurosurgery; Laterality: Right; [...] 14 2014 5:24AM Refe rring Provider Line: [phone] ID: [id number] Xr Chest 1 View 10/14/2014 [...] upper extremities. [facility] [...] (none) Author Type: Physical Therapist Filed: 10/16/14 2314 Date of Service: 10/16/14 1415 Status: Signed Grinder Set Up Operator Centerless: Ki Martinez PT (Physical Therapist) 10/16/14 1415 [...] Author: TABITHA Sidhu Service: (none) Author Type: Milling Supervisor Filed: 10/16/14 1307 Date of Service: 10/16/14 1300 Status: Signed Grinder Set Up Operator Centerless: TABITHA Sidhu (Milling Supervisor) Received t/c from Dayami at [facility] ([phone]). She is requesting PT notes. I informed [...] her that I made a referral to [facility] as a back up plan if pt is not an IPR ca ndidate. I called Doroteo Chamorro Coord for [facility] IPR and she confirmed that [facility] Medicaid requires that pt go to an [place] facility for rehab. Await PT/OT eval. Speech Therapy is already involved. onver alem Transaction, Provider Unknown - 10/16/2014 12:20 PM PST Case Management by TABITHA Sidhu at 10/16/14 1220 Author: TABITHA Sidhu Service: (none) Author Type: Milling Supervisor Filed: 10/16/14 1220 Date of Service: 10/16/14 1220 Status: Signed Grinder Set Up Operator Centerless: TABITHA Sidhu (Milling Supervisor) Placed t/c to [facility] and left message requesting bed availability and acceptance. Await return call. [facility] - Admissions- [phone] onver alem Transaction, Provider Unknown - 10/16/2014 12:01 PM PST Therapy Progress Note by Ki Martinez, PT at 10/16/14 1201 Author: Ki Martinez PT Service: (none) Author Type: Physical Therapist Filed: 10/16/14 1334 Date of Service: 10/16/14 1201 Status: Signed Grinder Set Up Operator Centerless: Ki Martinez PT (Physical Therapist) 10/16/14 1201 PT Last Visit PT Received On 10/16/14 (still awaiting ortho helmet delivery) Requires PT Follow Up Yes;On hold Cyndy Warner MD - 10/16/2014 11:22 AM PST Progress Notes by Cyndy Nj MD at 10/16/14 1122 Author: Cyndy Nj MD Service: Neurosurgery Author Type: Physician Filed: 10/16/14 1124 Date of Service: 10/16/14 1122 Status: Signed Grinder Set Up Operator Centerless: Cyndy Nj MD (Physician) [facility] Service: Neurosurgery Progress Note Hospital Day: LOS: [...] nystatin, nystatin, ondansetron OR ondanset gildardo, pancrelipase (Kvr-Virv-Kuke) 10,000 units, petrolatum, phosphorus OR sodium phospha [...] Oct 16 2014 6:08AM Referring Provider Line: [phone] E ID: [id number] PROBLEM LIST Principal Problem: [...] Nj MD 10/16/2014 Maria Teresa Dhillon MA, CCC-AVP - 10/16/2014 9:40 AM PST Therapy Progress Note by MS CLAUDIA HayesY-AVP at 10/16/14939 Author: MS KT Hayes-AVP Service: (none) Author Type: Speech Therapist Filed: 10/16/14940 Date of Service: 10/16/14939 Status: Signed Grinder Set Up Operator Centerless: Maria Teresa Lucas MS CFY-AVP (Speech and Language Pathologist) 10/16/14920 Swallowing Assessment Eval Swallowing Treatment Yes Initial Swallow Assessment Respiratory Status Room air Behavior/Cognition Cooperative;Lethargic;Requires cueing Dentition Adequate;Poor dental/oral hygiene Vision Impaired for self-feeding Patient Positioning Upright in bed Volitional Cough Weak Volitional Swallow Delayed Consistencies Consistencies Assessed Yes Torrington Presentation Spoon Oral WFL;Increased Anterior to Posterior Transit Pharyngeal Phase Delayed swallow initiated;Decreased laryngeal elevation upon palpation;Cou gh - delayed;Spontaneous double swallow Puree Presentation Spoon Oral Phase Increased oral holding time Pharyngeal Delayed Swallow;Cough - Delayed;Spontaneous double swallow;Decreased Laryngeal E levation Recommendations Liquids Consistency Recommendations Torrington thick;Other (comments) (No straws ) Diet Consistency [...] education;Assessment for upgr khadijah;Swallow strategies Dysphagia Goals Senior Living Goals Safe/efficient oral intake;Advanced diet Pt will have safe/efficient oral intake Torrington thick liquids;Puree diet;Goal progressing Pt will advanced diet in 3 days;Goal progressing Short Term Goals Tolerate diet upgrade trials Pt will tolerate diet upgrade trials With 1:1 supervision;Goal progressing onver alem Transaction, Provider Unknown - 10/16/2014 9:12 AM PST Case Management by TABITHA Sidhu at 10/16/14 0912 Author: TABITHA Sidhu Service: (none) Author Type: Milling Supervisor Filed: 10/16/14 1254 Date of Service: 10/16/14911 Status: Addendum Grinder Set Up Operator Centerless: TABITHA Sidhu (Milling Supervisor) Related Notes: Original Note by TABITHA Sidhu (Milling Supervisor) filed at 10/16/14 0914 10/16/14 0908 Discharge Planning Evaluation Admitting Diagnosis TBI Readmission No Living Arrangements Alone Support Systems Parent;Children Type of Residence Private residence (Lives on the [facility]/housing project) House type (Duplex) Independent [...] No Prescription Plan Yes Name of Pharmacy [facility] Anticipated Disposition Facility Type Inpatient Rehabilitation;group home facility Spoke with pt's mother Teressa ([phone]) and discussed discharge planning, Pt is a 53 y.o., male admitted with TBI from 2 falls rela stephenie to etoh. Per mother, pt was driving, shopping, doing own chores prior to admit. 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 Patient's PCP is: PER PT NONE Patient's insurance:[facility] Medicaid Coverage concerns: Medication coverage/concerns: [...] (none) Author Type: Registered Dietitian Filed: 10/15/14 0548 Date of Service: 10/15/141721 Status: Signed Grinder Set Up Operator Centerless: Maye Saleem RD, CD (Registered Dietitian) Nutrition Follow-Up High-risk follow-up. Assessment: Extubated yesterday. Appetite is good. Nutritionally pertinent labs: BG has been variable in the 100s, Nutrition-focused physical findings: Skin is intact. AVP is following due to dysphagia. Diet order/current [...] y and TBI. Intervention: Continue diet per AVP. 1:1 feeding assistance with meals. Include Ensure pudding with meal trays when appropriate. Additional supplements to be provided once diet can be advanced. Goal: Pt will tolerate diet upgrade and intake will be adequate to meet pt's estimated nutritiona l requirements. Recommendations: 1) General diet with texture/liquid modifications as per AVP recommendations. 2) Ensure pudding with meal trays once pt can have additional puree items. Monitoring: Will follow up in 3 days or as indicated. Maye Saleem RD, CD 10/15/2014 ang, Cyndy Saucedo MD - 10/15/2014 4:32 PM PST Progress Notes by Cyndy Nj MD at 10/15/14 1632 Author: Cyndy Nj MD Service: Neurosurgery Author Type: Physician Filed: 10/15/14 1631 Date of Service: 10/15/141631 Status: Signed Grinder Set Up Operator Centerless: Cyndy Nj MD (Physician) [facility] Service: Neurosurgery Progress Note Hospital Day: LOS: [...] nystatin, nystatin, ondansetron OR ondanset gildardo, pancrelipase (Crw-Zbyp-Yckj) 10,000 units, petrolatum, phosphorus OR sodium phospha [...] 10/15/141932 Date of Service: 10/15/141609 Status: Signed Grinder Set Up Operator Centerless: Ki Martinez PT (Physical Therapist) 10/15/14 161 [...] p with bilateral hands, but had minimal service representative bilaterally. Pt was able to reach anteriorly [...] Progress Notes by JENNIFER Small at 10/15/14 6418 Author: JENNIFER Small Service: Outside Dealer Sales Representative Author Type: Outside Dealer Sales Representative Filed: 10/15/14 120 Date of Service: 10/15/14 4916 Status: Signed Grinder Set Up Operator Centerless: JENNIFER Small (Nurse Practitioner) [facility] Service: Outside Dealer Sales Representative Progress Note Tony Fortune 53 y.o. Date of Admission: 10/11/2014 Treatment Team: Consulting Physician: Anthony Chong MD Admitting Provider: Harika Apodaca MD CHIEF COMPLAINT: severe TBI, large right SDH with massive midline shift, IC hypertension HISTORY OF PRESENT ILLNESS The patient is a 53 y.o. male with significant past medical history of chronic alcohol abus e and multiple falls. Per ED report from [facility]: he was drinking earlier today at home and fell twice. He went to bed and then he was noted to be having what they thought was seizure activity and th ey could not wake him and called EMS. He was taken to the ED at [facility] in [place] a nd then transferred to the ED [...] FOR BLEED; Surgeon: Anthony Chong MD; Location: [facility] IN OR; Service: Neurosurgery; Laterality: Right; Craniectomy Right 10/11/2014 Procedure: CRANIECTOMY; Surgeon: Anthony Chong MD; Location: [facility] OR; Ser vice: Neurosurgery; Laterality: Right; [...] 14 2014 5:24AM Refe savage Provider Line: [phone] ID: [id number] Xr Chest 1 View 10/14/2014 [...] Author: TABITHA Sidhu Service: (none) Author Type: Milling Supervisor Filed: 10/16/14 1251 Date of Service: 10/15/14 1132 Status: Addendum Grinder Set Up Operator Centerless: TABITHA Sidhu (Milling Supervisor) Related Notes: Original Note by TABITHA Sidhu (Milling Supervisor) filed at 10/15/14 1135 Attended morning rounds. Pt is extubated. Will need TBI rehab. Has [place] Medicaid. Referral made to [facility] ([phone]). Faxed initial referral info and updated clinical. Await return call regarding acceptance and bed availability. onver alem Transaction, Provider Unknown - 10/15/2014 11:06 AM PST Therapy Progress Note by ИВАН Poole at 10/15/14 1106 Author: ИВАН Poole Service: (none) Author Type: Massage Therapist Filed: 10/15/14 1106 Date of Service: 10/15/14 1106 Status: Signed Grinder Set Up Operator Centerless: ИВАН Poole (Massage Therapist) 10/15/14 1100 MT Last Visit MT Received On 10/15/14 MT Therapy Visit On hold (due to temp >100F in last 24 hrs) Helen Campos [facility] - 10/15/2014 8:30 AM PSTFormatting of this note might be different f rom the original. Therapy Progress Note by Helen Brian MS CFY-AVP at 10/15/14829 Author: MS KT Waters-AVP Service: (none) Author Type: Speech and Language Pa thologist Filed: 10/15/14907 Date of Service: 10/15/14829 Status: Signed Grinder Set Up Operator Centerless: MS KT Waters-AVP (Speech and Language Pathologist) 10/15/14829 Swallowing Assessment [...] cough w/ all straw and cup trials) Torrington Presentation Cup;Spoon Oral Spillage Left;Increased Anterior to Posterior Transit Pharyngeal Phase Delayed swallow initiated;Decreased laryngeal elevation upon palpation;Cou gh - delayed (delayed cough in 2/6 trials by cup, no cough by spoon) Puree Presentation Spoon Oral Phase Increased oral holding time Pharyngeal Delayed Swallow;Decreased Laryngeal Elevation;Spontaneous double swallow Recommendations Liquids Consistency Recommendations Torrington thick;Ice chips for oral comfort (NO STRAWS) [...] monitoring;Patient/Family education;Assessment for upgr khadijah Dysphagia Goals Senior Living Goals Safe/efficient oral intake;Advanced diet Pt will have safe/efficient oral intake Torrington thick liquids;Puree diet;New/revised goal Pt will advanced diet in 3 days;New/revised goal Short Term Goals Tolerate diet upgrade trials Pt will tolerate diet upgrade trials With 1:1 supervision;New/revised goal onversio n Transaction, Provider Unknown - 10/14/2014 4:48 PM PSTFormatting of this note might be di fferent from the original. Progress Notes by Massiel Stovall RN at 10/14/14 8985 Author: Massiel Stovall RN Service: (none) Author Type: Registered Nurse Filed: 10/14/14 985 Date of Service: 10/14/141647 Status: Signed Grinder Set Up Operator Centerless: Massiel Stovall RN (Registered Nurse) Phoned Pt [...] 1413 Date of Service: 10/14/141411 Status: Signed Grinder Set Up Operator Centerless: Maria Teresa Castillo RN (Registered Nurse) No need for PICC line at time. Time. Informed Na, PLASTERER HELPER to reorder if needed. Idalmis, Primar y RN to change IV today. MARIA TERESA CASTILLO RN Coral nichole, JENNIFER Arango - 10/14/2014 12:33 PM PSTFormatting of this note might be different f rom the original. Progress Notes by JENNIFER Small at 10/14/14 1233 Author: JENNIFER Small Service: Outside Dealer Sales Representative Author Type: Outside Dealer Sales Representative Filed: 10/14/14 1316 Date of Service: 10/14/14 1233 Status: Signed Grinder Set Up Operator Centerless: JENNIFER Small (Nurse Practitioner) [facility] Service: Outside Dealer Sales Representative Progress Note Tony Fortune 53 y.o. Date of Admission: 10/11/2014 Treatment Team: Consulting Physician: Anthony Chong MD Admitting Provider: Harika Apodaca MD CHIEF COMPLAINT: severe TBI, large right SDH with massive midline shift, IC hypertension HISTORY OF PRESENT ILLNESS The patient is a 53 y.o. male with significant past medical history of chronic alcohol abus e and multiple falls. Per ED report from [facility]: he was drinking earlier today at home and fell twice. He went to bed and then he was noted to be having what they thought was seizure activity and th ey could not wake him and called EMS. He was taken to the ED at [facility] in [place] a nd then transferred to the ED [...] FOR BLEED; Surgeon: Anthony Chong MD; Location: [facility] IN OR; Service: Neurosurgery; Laterality: Right; Craniectomy Right 10/11/2014 Procedure: CRANIECTOMY; Surgeon: Anthony Chong MD; Location: [facility]; Ser vice: Neurosurgery; Laterality: Right; ALLERGIES Allergies [...] heels LINES/TUBES: PIVs, daniels cath, left radial Hemphill DATA Recent Labs Lab 10/14/14 0415 10/13/14 [...] 14 2014 5:24AM Refe rrgeorges Provider Line: [phone] ID: [id number] Xr Chest 1 View 10/14/2014 [...] 10/14/14644 Date of Service: 10/14/14644 Status: Signed Grinder Set Up Operator Centerless: Sophy Vargas RPH (Pharmacist) Day 2 Vanco [...] 10/13/142099 Date of Service: 10/13/142099 Status: Signed Grinder Set Up Operator Centerless: Glenys Aguila RPH (Pharmacist) Clinical Pharmacy Note: [...] - 11.0 K/uL Final Testing performed at [facility], [address] [place] [address] INDICATION: CAP Will begin Vancomycin 1750 mg [...] 10/13/141636 Date of Service: 10/13/141636 Status: Signed Grinder Set Up Operator Centerless: Massiel Stovall RN (Registered Nurse) Pulmonary edema in process of resolving. tephe Anthony pierre MD - 10/13/2014 4:04 PM PSTFormatting of this note might be different from t he original. Progress Notes by Anthony Chong MD at 10/13/14 1604 Author: Anthony Chong MD Service: Neurosurgery Author Type: Physician Filed: 10/13/141606 Date of Service: 10/13/141603 Status: Signed Grinder Set Up Operator Centerless: Anthony Chong MD (Physician) [facility] Service: Neurosurgery Progress Note Hospital Day: LOS: [...] nystatin, nystatin, ondansetron OR ondanset gildardo, pancrelipase (Hzt-Nnbl-Tirx) 10,000 units, petrolatum, phosphorus OR sodium phospha [...] Date of Service: 10/13/14 1530 Status: Signed Grinder Set Up Operator Centerless: Massiel Stovall RN (Registered Nurse) Pt went into flash pulmonary edema, And JENNIFER at bed side. [facility], JENNIFER Arango - 10/13/2014 2:57 PM PSTFormatting of this note might be different f rom the original. Progress Notes by JENNIFER Small at 10/13/14 8287 Author: JENNIFER Small Service: Outside Dealer Sales Representative Author Type: Outside Dealer Sales Representative Filed: 10/13/14 1510 Date of Service: 10/13/141456 Status: Signed Grinder Set Up Operator Centerless: JENNIFER Small (Nurse Practitioner) [facility] Service: Outside Dealer Sales Representative Progress Note Tony Fortune 53 y.o. Date of Admission: 10/11/2014 Treatment Team: Consulting Physician: Anthony Chong MD Admitting Provider: Harika Apodaca MD CHIEF COMPLAINT: severe TBI, large right SDH with massive midline shift, IC hypertension HISTORY OF PRESENT ILLNESS The patient is a 53 y.o. male with significant past medical history of chronic alcohol abus e and multiple falls. Per ED report from [facility]: he was drinking earlier today at home and fell twice. He went to bed and then he was noted to be having what they thought was seizure activity and th ey could not wake him and called EMS. He was taken to the ED at [facility] in [place] a nd then transferred to the ED [...] FOR BLEED; Surgeon: Anthony Chong MD; Location: [facility] IN OR; Service: Neurosurgery; Laterality: Right; Craniectomy Right 10/11/2014 Procedure: CRANIECTOMY; Surgeon: Anthony Chong MD; Location: [facility] OR; Ser vice: Neurosurgery; Laterality: Right; [...] heels LINES/TUBES: PIVs, daniels cath, left radial Hemphill DATA Recent Labs Lab 10/13/14 0247 10/12/14 [...] 10/13/14446 Date of Service: 10/13/14442 Status: Signed Grinder Set Up Operator Centerless: Mikki Jules RRT (Registered Respiratory Therapist) RT [...] at 10/12/142015 Author: Harika Apodaca MD Service: Outside Dealer Sales Representative Author Type: Outside Dealer Sales Representative Filed: 10/12/142026 Date of Service: 10/12/142015 Status: Signed Grinder Set Up Operator Centerless: Harika Apodaca MD (Physician) [facility] Service: Outside Dealer Sales Representative Progress Note Tony Fortune 53 y.o. Date [...] and multiple falls. Per ED report from [facility]: he was drinking earlier today and fe ll twice. He went to bed and then he was noted to be having what they thought was seizure ac tivity and they could not wake him and called EMS. He was taken to the ED at [facility] and then transferred to the [...] FOR BLEED; Surgeon: Anthony Chong MD; Location: [facility] IN OR; Service: Neurosurgery; Laterality: Right; Craniectomy Right 10/11/2014 Procedure: CRANIECTOMY; Surgeon: Anthony Chong MD; Location: [facility] OR; Ser vice: Neurosurgery; Laterality: Right; [...] 4 mm and reactive. 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 Pt is vented and admitted with TBI. No family have visited yet [place]. Pt appears to be responding to some commands. He is a drinker. He reportedly has had s everal falls recently. Pt will need TBI rehab. He is from [place], [place] and [place]. If he requires LTAC h e will need to go to [facility] as [place] Medicaid is contracted with [facility] only. Will c omplete assessment when family arrives. tAnthony rodriguez MD - 10/12/2014 2:04 PM PSTFormatting of this note might be different from t he original. Progress Notes by Anthony Chong MD at 10/12/14 8896 Author: Anthony Chong MD Service: Neurosurgery Author Type: Physician Filed: 10/12/14 7228 Date of Service: 10/12/141403 Status: Signed Grinder Set Up Operator Centerless: Anthony Chong MD (Physician) [facility] Service: Neurosurgery Progress Note Hospital Day: LOS: [...] 10/11/142351 Date of Service: 10/11/142349 Status: Signed Grinder Set Up Operator Centerless: Trena Gilbert () [facility] Nayana called with request from family. When I arrived at hospital family had already left. I will leave info for morning financial management consultant to visit tomorrow. Chaplain Trena Gilbert onver alem Transaction, Provider Unknown - 10/11/2014 11:02 PM PST Progress Notes by Glenys Aguila RPH at 10/11/142301 Author: Glenys Aguila RPH Service: (none) Author Type: Pharmacist Filed: 10/11/142301 Date of Service: 10/11/142301 Status: Signed Grinder Set Up Operator Centerless: Glenys Aguila RPH (Pharmacist) Clinical Pharmacy Note: [...] | | | | | [place] [address] | | | | + + + + + + | K | 3.8Comment: Testing | 3.5 - 4.9 | EXTERNAL | | | | performed at [facility], [address] | mmol/L | LAB | | | | [address], | | | | | | [place] [address] | | | | + + + + + + | Cl | 101Comment: Testing | 99 - 109 mmol/L | EXTERNAL | | | | performed at [facility], [address] | | LAB | | | | [address], | | | | | | [place] [address] | | | | + + + + + + | CO2 | 28Comment: Testing | 23 - 32 mmol/L | EXTERNAL | | | | performed at [facility], [address] | | LAB | | | | [address], | | | | | | [place] [address] | | | | + + + + + + | Anion Gap | 9Comment: Testing | 5 - 20 mmol/L | EXTERNAL | | | | performed at [facility], [address] | | LAB | | | | [address], | | | | | | [place] [address] | | | | + + + + + + | Glucose, | 119 (H)Comment: Testing | 65 - 99 mg/dL | EXTERNAL | | | Fasting | performed at [facility], [address] | | LAB | | | | [address], | | | | | | [place] [address] | | | | + + + + + + | BUN | 8Comment: Testing | 8 - 25 mg/dL | EXTERNAL | | | | performed at [facility], [address] | | LAB | | | | [address], | | | | | | [place] [address] | | | | + + + + + + | Creatinine | 0.54 (L)Comment: Testing | 0.70 - 1.30 | EXTERNAL | | | | performed at [facility], [address] | mg/dL | LAB | | | | [address], | | | | | | [place] [address] | | | | + + + + + + | BUN/Creatin | 15Comment: Testing | | EXTERNAL | | | ine Ratio | performed at [facility], [address] | | LAB | | | | [address], | | | | | | [place] [address] | | | | + + + [...] | | | | | | at [facility], [address] | | | | | | [facility], | | | | | | [place] [address] | | | | + + + [...] | | | | | [place] [address] | | | | + + + + + + | K | 3.6Comment: Testing | 3.5 - 4.9 | EXTERNAL | | | | performed at [facility], [address] | mmol/L | LAB | | | | [address], | | | | | | [place] [address] | | | | + + + + + + | Cl | 101Comment: Testing | 99 - 109 mmol/L | EXTERNAL | | | | performed at [facility], [address] | | LAB | | | | [address], | | | | | | [place] [address] | | | | + + + + + + | CO2 | 29Comment: Testing | 23 - 32 mmol/L | EXTERNAL | | | | performed at [facility], [address] | | LAB | | | | [address], | | | | | | [place] [address] | | | | + + + + + + | Anion Gap | 8Comment: Testing | 5 - 20 mmol/L | EXTERNAL | | | | performed at [facility], [address] | | LAB | | | | [address], | | | | | | [place] [address] | | | | + + + + + + | Glucose, | 118 (H)Comment: Testing | 65 - 99 mg/dL | EXTERNAL | | | Fasting | performed at [facility], [address] | | LAB | | | | [address], | | | | | | [place] [address] | | | | + + + + + + | BUN | 7 (L)Comment: Testing | 8 - 25 mg/dL | EXTERNAL | | | | performed at [facility], [address] | | LAB | | | | [address], | | | | | | [place] [address] | | | | + + + + + + | Creatinine | 0.57 (L)Comment: Testing | 0.70 - 1.30 | EXTERNAL | | | | performed at [facility], [address] | mg/dL | LAB | | | | [address], | | | | | | [place] [address] | | | | + + + + + + | BUN/Creatin | 12Comment: Testing | | EXTERNAL | | | ine Ratio | performed at [facility], [address] | | LAB | | | | [address], | | | | | | [place] [address] | | | | + + + + + + | Calcium | 9.5Comment: NOTE NEW | 8.5 - 10.5 | EXTERNAL | | | | REFERENCE RANGETesting | mg/dL | LAB | | | | performed at [facility], [address] | | | | | | [address], | | | | | | [place] [address] | | | | + + + + + + | Protein, | 7.7Comment: Testing | 6.3 - 8.2 g/dL | EXTERNAL | | | Total | performed at [facility], [address] | | LAB | | | | [address], | | | | | | [place] [address] | | | | + + + + + + | Albumin | 3.5 (L)Comment: Testing | 3.6 - 5.0 g/dL | EXTERNAL | | | | performed at [facility], [address] | | LAB | | | | [address], | | | | | | [place] [address] | | | | + + + + + + | Globulin | 4.2Comment: Testing | 1.3 - 4.9 g/dL | EXTERNAL | | | | performed at [facility], [address] | | LAB | | | | [address], | | | | | | [place] [address] | | | | + + + + + + | A/G Ratio | 0.8 (L)Comment: Testing | 1.0 - 2.4 | EXTERNAL | | | | performed at [facility], [address] | | LAB | | | | [address], | | | | | | [place] [address] | | | | + + + + + + | Bilirubin | 0.6Comment: Testing | 0.1 - 1.5 mg/dL | EXTERNAL | | | Total | performed at [facility], [address] | | LAB | | | | [address], | | | | | | [place] [address] | | | | + + + + + + | ALP, | 225 (H)Comment: Testing | 35 - 115 U/L | EXTERNAL | | | External | performed at [facility], [address] | | LAB | | | | [address], | | | | | | [place] [address] | | | | + + + + + + | AST | 52 (H)Comment: Testing | 10 - 45 U/L | EXTERNAL | | | | performed at [facility], [address] | | LAB | | | | [address], | | | | | | [place] [address] | | | | + + + + + + | ALT | 46Comment: Testing | 10 - 65 U/L | EXTERNAL | | | | performed at [facility], [address] | | LAB | | | | [address], | | | | | | [place] [address] | | | | + + + [...] [address], | | | | | | [place] [address] | | | | + + + [...] EXTERNAL | | | | performed at [facility], [address] | | LAB | | | | [address], | | | | | | [place] [address] | | | | + + + + + + | RED CELL | 3.62 (L)Comment: Testing | 4.20 - 5.70 | EXTERNAL | | | COUNT | performed at [facility], [address] | M/uL | LAB | | | | [address], | | | | | | [place] [address] | | | | + + + + + + | Hgb | 12.0 (L)Comment: Testing | 13.2 - 17.0 | EXTERNAL | | | | performed at [facility], [address] | g/dL | LAB | | | | [address], | | | | | | [place] [address] | | | | + + + + + + | Hematocrit, | 36.2 (L)Comment: Testing | 39.0 - 50.0 % | EXTERNAL | | | POC | performed at [facility], [address] | | LAB | | | | [address], | | | | | | [place] [address] | | | | + + + + + + | MCV | 99.9Comment: Testing | 80.0 - 100.0 fl | EXTERNAL | | | | performed at [facility], [address] | | LAB | | | | [address], | | | | | | [place] [address] | | | | + + + + + + | MCH | 33.2Comment: Testing | 27.0 - 34.0 pg | EXTERNAL | | | | performed at [facility], [address] | | LAB | | | | [address], | | | | | | [place] [address] | | | | + + + + + + | MCHC | 33.2Comment: Testing | 32.0 - 35.5 | EXTERNAL | | | | performed at [facility], [address] | g/dL | LAB | | | | [address], | | | | | | [place] [address] | | | | + + + + + + | RDW-CV | 54.7 (H)Comment: Testing | 37 - 53 fl | EXTERNAL | | | | performed at [facility], [address] | | LAB | | | | [address], | | | | | | [place] [address] | | | | + + + + + + | Platelet | 286Comment: Testing | 150 - 400 K/uL | EXTERNAL | | | Count | performed at [facility], [address] | | LAB | | | Plasma | [address], | | | | | | [place] [address] | | | | + + + + + + | MPV | 8.2Comment: Testing | fl | EXTERNAL | | | | performed at [facility], [address] | | LAB | | | | [address], | | | | | | [place] [address] | | | | + + + + + + | Differentia | AUTOMATEDComment: | | EXTERNAL | | | l Type | Testing performed at | | LAB | | | | [facility], [address] | | | | | | [place] | | | | | | [address] | | | | + + + + + + | % Segmented | 72.2Comment: Testing | % | EXTERNAL | | | | performed at [facility], [address] | | LAB | | | Neutrophils | [address], | | | | | | [place] [address] | | | | + + + + + + | % | 16.2Comment: Testing | % | EXTERNAL | | | Lymphocytes | performed at [facility], [address] | | LAB | | | | [address], | | | | | | [place] [address] | | | | + + + + + + | % Monocytes | 7.9Comment: Testing | % | EXTERNAL | | | | performed at [facility], [address] | | LAB | | | | [address], | | | | | | [place] [address] | | | | + + + + + + | % | 3.0Comment: Testing | % | EXTERNAL | | | Eosinophils | performed at [facility], [address] | | LAB | | | | [address], | | | | | | [place] [address] | | | | + + + + + + | % Basophils | 0.7Comment: Testing | % | EXTERNAL | | | | performed at [facility], [address] | | LAB | | | [address], | | | | | | [place] [address] | | | | + + + + + + | Absolute | 5.7Comment: Testing | 1.9 - 7.4 K/uL | EXTERNAL | | | Segmented | performed at [facility], [address] | | LAB | | | Neutrophils | [address], | | | | | | [place] [address] | | | | + + + + + + | Absolute | 1.3Comment: Testing | 1.0 - 3.9 K/uL | EXTERNAL | | | Lymphocytes | performed at [facility], [address] | | LAB | | | | [address], | | | | | | [place] [address] | | | | + + + + + + | Absolute | 0.6Comment: Testing | 0 - 0.8 K/uL | EXTERNAL | | | Monocytes | performed at [facility], [address] | | LAB | | | | [address], | | | | | | [place] [address] | | | | + + + + + + | Absolute | 0.2Comment: Testing | 0 - 0.5 K/uL | EXTERNAL | | | Eosinophils | performed at [facility], [address] | | LAB | | | | [address], | | | | | | [place] [address] | | | | + + + + + + | Absolute | 0.1Comment: Testing | 0 - 0.1 K/uL | EXTERNAL | | | Basophils | performed at [facility], [address] | | LAB | | | | [address], | | | | | | [place] [address] | | | | + + + [...] EXTERNAL | | | | performed at [facility];[address] | | LAB | | | | [address];[place] | | | | | | [address] | | | | + + + [...] | | | | | [place] [address] | | | | + + + + + + | K | 3.5Comment: Testing | 3.5 - 4.9 | EXTERNAL | | | | performed at [facility], [address] | mmol/L | LAB | | | | [address], | | | | | | [place] [address] | | | | + + + + + + | Cl | 100Comment: Testing | 99 - 109 mmol/L | EXTERNAL | | | | performed at [facility], [address] | | LAB | | | | [address], | | | | | | [place] [address] | | | | + + + + + + | CO2 | 26Comment: Testing | 23 - 32 mmol/L | EXTERNAL | | | | performed at [facility], [address] | | LAB | | | | [address], | | | | | | [place] [address] | | | | + + + + + + | Anion Gap | 11Comment: Testing | 5 - 20 mmol/L | EXTERNAL | | | | performed at [facility], [address] | | LAB | | | | [address], | | | | | | [place] [address] | | | | + + + + + + | Glucose, | 112 (H)Comment: Testing | 65 - 99 mg/dL | EXTERNAL | | | Fasting | performed at [facility], [address] | | LAB | | | | [address], | | | | | | [place] [address] | | | | + + + + + + | BUN | 8Comment: Testing | 8 - 25 mg/dL | EXTERNAL | | | | performed at [facility], [address] | | LAB | | | | [address], | | | | | | [place] [address] | | | | + + + + + + | Creatinine | 0.65 (L)Comment: Testing | 0.70 - 1.30 | EXTERNAL | | | | performed at [facility], [address] | mg/dL | LAB | | | | [address], | | | | | | [place] [address] | | | | + + + + + + | BUN/Creatin | 12Comment: Testing | | EXTERNAL | | | ine Ratio | performed at [facility], [address] | | LAB | | | | [address], | | | | | | [place] [address] | | | | + + + + + + | Calcium | 9.2Comment: NOTE NEW | 8.5 - 10.5 | EXTERNAL | | | | REFERENCE RANGETesting | mg/dL | LAB | | | | performed at [facility], [address] | | | | | | [address], | | | | | | [place] [address] | | | | + + + [...] | | | | | | at [facility], [address] | | | | | | [facility], | | | | | | [place] [address] | | | | + + + [...] EXTERNAL | | | | performed at [facility], [address] | mmol/L | LAB | | | | [address], | | | | | | [place] [address] | | | | + + + + + + | K | 3.6Comment: Testing | 3.5 - 4.9 | EXTERNAL | | | | performed at [facility], [address] | mmol/L | LAB | | | | [address], | | | | | | [place], [place] [address] | | | | + + + + + + | Cl | 100Comment: Testing | 99 - 109 mmol/L | EXTERNAL | | | | performed at [facility], [address] | | LAB | | | | [address], | | | | | | [place], [place] [address] | | | | + + + + + + | CO2 | 27Comment: Testing | 23 - 32 mmol/L | EXTERNAL | | | | performed at [facility], [address] | | LAB | | | | [address], | | | | | | [place] [address] | | | | + + + + + + | Anion Gap | 10Comment: Testing | 5 - 20 mmol/L | EXTERNAL | | | | performed at [facility], [address] | | LAB | | | | [address], | | | | | | [place] [address] | | | | + + + + + + | Glucose, | 119 (H)Comment: Testing | 65 - 99 mg/dL | EXTERNAL | | | Fasting | performed at [facility], [address] | | LAB | | | | [address], | | | | | | [place] [address] | | | | + + + + + + | BUN | 11Comment: Testing | 8 - 25 mg/dL | EXTERNAL | | | | performed at [facility], [address] | | LAB | | | | [address], | | | | | | [place] [address] | | | | + + + + + + | Creatinine | 0.64 (L)Comment: Testing | 0.70 - 1.30 | EXTERNAL | | | | performed at [facility], [address] | mg/dL | LAB | | | | [address], | | | | | | [place] [address] | | | | + + + + + + | BUN/Creatin | 17Comment: Testing | | EXTERNAL | | | ine Ratio | performed at [facility], [address] | | LAB | | | | [address], | | | | | | [place] [address] | | | | + + + + + + | Calcium | 9.4Comment: NOTE NEW | 8.5 - 10.5 | EXTERNAL | | | | REFERENCE RANGETesting | mg/dL | LAB | | | | performed at [facility], [address] | | | | | | [address], | | | | | | [place] [address] | | | | + + + [...] | | | | | | at [facility], [address] | | | | | | [address], | | | | | | [place] [address] | | | | + + + [...] | | | | | [place] [address] | | | | + + + + + + | RED CELL | 3.83 (L)Comment: Testing | 4.20 - 5.70 | EXTERNAL | | | COUNT | performed at [facility], [address] | M/uL | LAB | | | | [address], | | | | | | [place] [address] | | | | + + + + + + | Hgb | 12.8 (L)Comment: Testing | 13.2 - 17.0 | EXTERNAL | | | | performed at [facility], [address] | g/dL | LAB | | | | [address], | | | | | | [place] [address] | | | | + + + + + + | Hematocrit, | 38.0 (L)Comment: Testing | 39.0 - 50.0 % | EXTERNAL | | | POC | performed at [facility], [address] | | LAB | | | | [address], | | | | | | [place] [address] | | | | + + + + + + | MCV | 99.2Comment: Testing | 80.0 - 100.0 fl | EXTERNAL | | | | performed at [facility], [address] | | LAB | | | | [address], | | | | | | [place] [address] | | | | + + + + + + | MCH | 33.3Comment: Testing | 27.0 - 34.0 pg | EXTERNAL | | | | performed at [facility], [address] | | LAB | | | | [address], | | | | | | [place] [address] | | | | + + + + + + | MCHC | 33.6Comment: Testing | 32.0 - 35.5 | EXTERNAL | | | | performed at [facility], [address] | g/dL | LAB | | | | [address], | | | | | | [place] [address] | | | | + + + + + + | RDW-CV | 56.9 (H)Comment: Testing | 37 - 53 fl | EXTERNAL | | | | performed at [facility], [address] | | LAB | | | | [address], | | | | | | [place] [address] | | | | + + + + + + | Platelet | 327Comment: Testing | 150 - 400 K/uL | EXTERNAL | | | Count | performed at [facility], [address] | | LAB | | | Plasma | [address], | | | | | | [place] [address] | | | | + + + + + + | MPV | 8.3Comment: Testing | fl | EXTERNAL | | | | performed at [facility], [address] | | LAB | | | | [address], | | | | | | [place] [address] | | | | + + + + + + | Differentia | AUTOMATEDComment: | | EXTERNAL | | | l Type | Testing performed at | | LAB | | | | [facility], [address] | | | | | | [place] | | | | | | [address] | | | | + + + + + + | % Segmented | 72.8Comment: Testing | % | EXTERNAL | | | | performed at [facility], [address] | | LAB | | | Neutrophils | [address], | | | | | | [place] [address] | | | | + + + [...] | | | | | [place] [address] | | | | + + + + + + | % | 2.0Comment: Testing | % | EXTERNAL | | | Eosinophils | performed at [facility], [address] | | LAB | | | | [address], | | | | | | [place] [address] | | | | + + + + + + | % Basophils | 0.7Comment: Testing | % | EXTERNAL | | | | performed at [facility], [address] | | LAB | | | | [address], | | | | | | [place] [address] | | | | + + + + + + | Absolute | 6.9Comment: Testing | 1.9 - 7.4 K/uL | EXTERNAL | | | Segmented | performed at [facility], [address] | | LAB | | | Neutrophils | [address], | | | | | | [place] [address] | | | | + + + + + + | Absolute | 1.6Comment: Testing | 1.0 - 3.9 K/uL | EXTERNAL | | | Lymphocytes | performed at [facility], [address] | | LAB | | | | [address], | | | | | | [place] [address] | | | | + + + + + + | Absolute | 0.7Comment: Testing | 0 - 0.8 K/uL | EXTERNAL | | | Monocytes | performed at [facility], [address] | | LAB | | | | [address], | | | | | | [place] [address] | | | | + + + + + + | Absolute | 0.2Comment: Testing | 0 - 0.5 K/uL | EXTERNAL | | | Eosinophils | performed at [facility], [address] | | LAB | | | | [address], | | | | | | [place] [address] | | | | + + + + + + | Absolute | 0.1Comment: Testing | 0 - 0.1 K/uL | EXTERNAL | | | Basophils | performed at [facility], [address] | | LAB | | | | [address], | | | | | | [place] [address] | | | | + + + [...] EXTERNAL | | | | performed at [facility];[address] | | LAB | | | | [address];[place], [place] | | | | | | [address] | | | | + + + [...] | | | | | [place] [address] | | | | + + + + + + | K | 3.8Comment: Testing | 3.5 - 4.9 | EXTERNAL | | | | performed at [facility], [address] | mmol/L | LAB | | | | [address], | | | | | | [place] [address] | | | | + + + + + + | Cl | 98 (L)Comment: Testing | 99 - 109 mmol/L | EXTERNAL | | | | performed at [facility], [address] | | LAB | | | | [address], | | | | | | [place] [address] | | | | + + + + + + | CO2 | 26Comment: Testing | 23 - 32 mmol/L | EXTERNAL | | | | performed at [facility], [address] | | LAB | | | | [address], | | | | | | [place] [address] | | | | + + + + + + | Anion Gap | 11Comment: Testing | 5 - 20 mmol/L | EXTERNAL | | | | performed at [facility], [address] | | LAB | | | | [address], | | | | | | [place] [address] | | | | + + + + + + | Glucose, | 121 (H)Comment: Testing | 65 - 99 mg/dL | EXTERNAL | | | Fasting | performed at [facility], [address] | | LAB | | | | [address], | | | | | | [place] [address] | | | | + + + + + + | BUN | 10Comment: Testing | 8 - 25 mg/dL | EXTERNAL | | | | performed at [facility], [address] | | LAB | | | | [address], | | | | | | [place] [address] | | | | + + + + + + | Creatinine | 0.60 (L)Comment: Testing | 0.70 - 1.30 | EXTERNAL | | | | performed at [facility], [address] | mg/dL | LAB | | | | [address], | | | | | | [place] [address] | | | | + + + + + + | BUN/Creatin | 17Comment: Testing | | EXTERNAL | | | ine Ratio | performed at [facility], [address] | | LAB | | | | [address], | | | | | | [place] [address] | | | | + + + + + + | Calcium | 9.3Comment: NOTE NEW | 8.5 - 10.5 | EXTERNAL | | | | REFERENCE RANGETesting | mg/dL | LAB | | | | performed at [facility], [address] | | | | | | [address], | | | | | | [place] [address] | | | | + + + [...] | | | | | | at [facility], [address] | | | | | | [address], | | | | | | [place] [address] | | | | + + + [...] EXTERNAL | | | | performed at [facility], [address] | | LAB | | | | [address], | | | | | | [place] [address] | | | | + + + + + + | RED CELL | 3.77 (L)Comment: Testing | 4.20 - 5.70 | EXTERNAL | | | COUNT | performed at [facility], [address] | M/uL | LAB | | | | [address], | | | | | | [place] [address] | | | | + + + + + + | Hgb | 12.2 (L)Comment: Testing | 13.2 - 17.0 | EXTERNAL | | | | performed at [facility], [address] | g/dL | LAB | | | | [address], | | | | | | [place] [address] | | | | + + + + + + | Hematocrit, | 37.3 (L)Comment: Testing | 39.0 - 50.0 % | EXTERNAL | | | POC | performed at [facility], [address] | | LAB | | | | [address], | | | | | | [place] [address] | | | | + + + + + + | MCV | 98.9Comment: Testing | 80.0 - 100.0 fl | EXTERNAL | | | | performed at [facility], [address] | | LAB | | | | [address], | | | | | | [place] [address] | | | | + + + + + + | MCH | 32.3Comment: Testing | 27.0 - 34.0 pg | EXTERNAL | | | | performed at [facility], [address] | | LAB | | | | [address], | | | | | | [place] [address] | | | | + + + + + + | MCHC | 32.6Comment: Testing | 32.0 - 35.5 | EXTERNAL | | | | performed at [facility], [address] | g/dL | LAB | | | | [address], | | | | | | [place] [address] | | | | + + + + + + | RDW-CV | 58.6 (H)Comment: Testing | 37 - 53 fl | EXTERNAL | | | | performed at [facility], [address] | | LAB | | | | [address], | | | | | | [place] [address] | | | | + + + + + + | Platelet | 274Comment: Testing | 150 - 400 K/uL | EXTERNAL | | | Count | performed at [facility], [address] | | LAB | | | Plasma | [address], | | | | | | [place] [address] | | | | + + + + + + | MPV | 8.1Comment: Testing | fl | EXTERNAL | | | | performed at [facility], [address] | | LAB | | | | [address], | | | | | | [place] [address] | | | | + + + + + + | Differentia | AUTOMATEDComment: | | EXTERNAL | | | l Type | Testing performed at | | LAB | | | | [facility], [address] | | | | | | [place] | | | | | | [address] | | | | + + + + + + | % Segmented | 71.7Comment: Testing | % | EXTERNAL | | | | performed at [facility], [address] | | LAB | | | Neutrophils | [address], | | | | | | [place] [address] | | | | + + + + + + | % | 15.9Comment: Testing | % | EXTERNAL | | | Lymphocytes | performed at [facility], [address] | | LAB | | | | [address], | | | | | | [place] [address] | | | | + + + + + + | % Monocytes | 9.3Comment: Testing | % | EXTERNAL | | | | performed at [facility], [address] | | LAB | | | | [address], | | | | | | [place] [address] | | | | + + + + + + | % | 2.4Comment: Testing | % | EXTERNAL | | | Eosinophils | performed at [facility], [address] | | LAB | | | | [address], | | | | | | [place] [address] | | | | + + + + + + | % Basophils | 0.7Comment: Testing | % | EXTERNAL | | | | performed at [facility], [address] | | LAB | | | | [address], | | | | | | [place] [address] | | | | + + + + + + | Absolute | 6.7Comment: Testing | 1.9 - 7.4 K/uL | EXTERNAL | | | Segmented | performed at [facility], [address] | | LAB | | | Neutrophils | [address], | | | | | | [place] [address] | | | | + + + + + + | Absolute | 1.5Comment: Testing | 1.0 - 3.9 K/uL | EXTERNAL | | | Lymphocytes | performed at [facility], [address] | | LAB | | | | [address], | | | | | | [place] [address] | | | | + + + + + + | Absolute | 0.9 (H)Comment: Testing | 0 - 0.8 K/uL | EXTERNAL | | | Monocytes | performed at [facility], [address] | | LAB | | | | [address], | | | | | | [place] [address] | | | | + + + + + + | Absolute | 0.2Comment: Testing | 0 - 0.5 K/uL | EXTERNAL | | | Eosinophils | performed at [facility], [address] | | LAB | | | | [address], | | | | | | [place] [address] | | | | + + + + + + | Absolute | 0.1Comment: Testing | 0 - 0.1 K/uL | EXTERNAL | | | Basophils | performed at [facility], [address] | | LAB | | | | [address], | | | | | | [place] [address] | | | | + + + [...] EXTERNAL | | | | performed at [facility] | | LAB | | | | [address];[place] | | | | | | [address] | | | | + + + [...] EXTERNAL | | | | performed at [facility];[address] | mmol/L | LAB | | | | [address];[place] | | | | | | [address] | | | | + + + + + + | K | 4.0Comment: Testing | 3.5 - 4.9 | EXTERNAL | | | | performed at [facility];[address] | mmol/L | LAB | | | | [address];[place] | | | | | | [address] | | | | + + + + + + | Cl | 102Comment: Testing | 99 - 109 mmol/L | EXTERNAL | | | | performed at [facility];[address] | | LAB | | | | [address];[place] | | | | | | [address] | | | | + + + + + + | CO2 | 27Comment: Testing | 23 - 32 mmol/L | EXTERNAL | | | | performed at [facility];[address] | | LAB | | | | [address];[place] | | | | | | [address] | | | | + + + + + + | Anion Gap | 10Comment: Testing | 5 - 20 mmol/L | EXTERNAL | | | | performed at [facility];[address] | | LAB | | | | [address];[place] | | | | | | [address] | | | | + + + + + + | Glucose, | 128 (H)Comment: Testing | 65 - 99 mg/dL | EXTERNAL | | | Fasting | performed at [facility];[address] | | LAB | | | | [address];[place] | | | | | | [address] | | | | + + + + + + | BUN | 9Comment: Testing | 8 - 25 mg/dL | EXTERNAL | | | | performed at [facility];[address] | | LAB | | | | [address];[place] | | | | | | [address] | | | | + + + + + + | Creatinine | 0.78Comment: Testing | 0.70 - 1.30 | EXTERNAL | | | | performed at [facility];[address] | mg/dL | LAB | | | | [address];[place] | | | | | | [address] | | | | + + + + + + | BUN/Creatin | 12Comment: Testing | | EXTERNAL | | | ine Ratio | performed at [facility];[address] | | LAB | | | | [address];[place] | | | | | | [address] | | | | + + + + + + | Calcium | 8.4 (L)Comment: NOTE NEW | 8.5 - 10.5 | EXTERNAL | | | | REFERENCE RANGETesting | mg/dL | LAB | | | | performed at [facility];[address] | | | | | | [address];[place] | | | | | | [address] | | | | + + + [...] | | | | | | at [facility];[address] [place] [address] | | | | | | [facility];[place] [address] | | | | + + + [...] 7:38AM | | | Referring Provider Line: [phone] ID: [id number] | | + + + [...] 2014 | | 7:38AM Referring Provider Line: [phone] ID: [id number] | | | |IMPRESSION: | |Unchanged head CT compared to 10/16/2014. | | | |RADIA | | | | Electronically signed by Mariya Calzada MD on Oct 17 2014 7:38AM Referring Provider Dian e: [phone] ID: [id number] | + + Potassium (10/16/2014 5:47 PM PST) + + + + + + | Component | Value | Ref Range | Performed | Pathologist | | | | | At | Signature | + + + + + + | K | 4.2Comment: Testing | 3.5 - 4.9 | EXTERNAL | | | | performed at [facility];[address] | mmol/L | LAB | | | | [address];[place], [place] | | | | | | [address] | | | | + + + [...] 6:08AM | | | Referring Provider Line: [phone] ID: [id number] | | + + + [...] 2014 | | 6:08AM Referring Provider Line: [phone] ID: [id number] | | | |IMPRESSION: | | | |Right-sided drain has been removed. No evidence of interval hemorrhage or worsening mass ef fect. Hypodense subdural collection over the right frontal convexity has increased in size. Serial followup suggested. No other significant interval change. | | | | Electronically signed by Jimbo Mckeon MD on Oct 16 2014 6:08AM Referring Provider Line: [phone] ID: [id number] | + + External Lab: CBC (10/16/2014 4:09 AM PST) + + + + + + | Component | Value | Ref Range | Performed | Pathologist | | | | | At | Signature | + + + + + + | WBC | 8.7Comment: Testing | 3.8 - 11.0 K/uL | EXTERNAL | | | | performed at [facility], [address] | | LAB | | | | [address], | | | | | | [place] [address] | | | | + + + + + + | RED CELL | 3.62 (L)Comment: Testing | 4.20 - 5.70 | EXTERNAL | | | COUNT | performed at [facility], [address] | M/uL | LAB | | | | [address], | | | | | | [place] [address] | | | | + + + + + + | Hgb | 11.9 (L)Comment: Testing | 13.2 - 17.0 | EXTERNAL | | | | performed at [facility], [address] | g/dL | LAB | | | | [address], | | | | | | [place] [address] | | | | + + + + + + | Hematocrit, | 36.0 (L)Comment: Testing | 39.0 - 50.0 % | EXTERNAL | | | POC | performed at [facility], [address] | | LAB | | | | [address], | | | | | | [place] [address] | | | | + + + + + + | MCV | 99.4Comment: Testing | 80.0 - 100.0 fl | EXTERNAL | | | | performed at [facility], [address] | | LAB | | | | [address], | | | | | | [place] [address] | | | | + + + + + + | MCH | 32.9Comment: Testing | 27.0 - 34.0 pg | EXTERNAL | | | | performed at [facility], [address] | | LAB | | | | [address], | | | | | | [place] [address] | | | | + + + + + + | MCHC | 33.0Comment: Testing | 32.0 - 35.5 | EXTERNAL | | | | performed at [facility], [address] | g/dL | LAB | | | | [address], | | | | | | [place] [address] | | | | + + + + + + | RDW-CV | 59.5 (H)Comment: Testing | 37 - 53 fl | EXTERNAL | | | | performed at [facility], [address] | | LAB | | | | [address], | | | | | | [place] [address] | | | | + + + + + + | Platelet | 201Comment: Testing | 150 - 400 K/uL | EXTERNAL | | | Count | performed at [facility], [address] | | LAB | | | Plasma | [address], | | | | | | [place] [address] | | | | + + + + + + | MPV | 8.2Comment: Testing | fl | EXTERNAL | | | | performed at [facility], [address] | | LAB | | | | [address], | | | | | | [place] [address] | | | | + + + + + + | Differentia | AUTOMATEDComment: | | EXTERNAL | | | l Type | Testing performed at | | LAB | | | | [facility], [address] | | | | | | [place] | | | | | | [address] | | | | + + + + + + | % Segmented | 77.8Comment: Testing | % | EXTERNAL | | | | performed at [facility], [address] | | LAB | | | Neutrophils | [address], | | | | | | [place] [address] | | | | + + + + + + | % | 9.6Comment: Testing | % | EXTERNAL | | | Lymphocytes | performed at [facility], [address] | | LAB | | | | [address], | | | | | | [place] [address] | | | | + + + + + + | % Monocytes | 10.5Comment: Testing | % | EXTERNAL | | | | performed at [facility], [address] | | LAB | | | | [address], | | | | | | [place] [address] | | | | + + + + + + | % | 1.6Comment: Testing | % | EXTERNAL | | | Eosinophils | performed at [facility], [address] | | LAB | | | | [address], | | | | | | [place] [address] | | | | + + + + + + | % Basophils | 0.5Comment: Testing | % | EXTERNAL | | | | performed at [facility], [address] | | LAB | | | | [address], | | | | | | [place] [address] | | | | + + + + + + | Absolute | 6.8Comment: Testing | 1.9 - 7.4 K/uL | EXTERNAL | | | Segmented | performed at [facility], [address] | | LAB | | | Neutrophils | [address], | | | | | | [place] [address] | | | | + + + + + + | Absolute | 0.8 (L)Comment: Testing | 1.0 - 3.9 K/uL | EXTERNAL | | | Lymphocytes | performed at [facility], [address] | | LAB | [...] | | | | | [place] [address] | | | | + + + + + + | Absolute | 0.1Comment: Testing | 0 - 0.5 K/uL | EXTERNAL | | | Eosinophils | performed at [facility], [address] | | LAB | | | | [address], | | | | | | [place] [address] | | | | + + + + + + | Absolute | 0.0Comment: Testing | 0 - 0.1 K/uL | EXTERNAL | | | Basophils | performed at [facility], [address] | | LAB | | | | [address], | | | | | | [place] [address] | | | | + + + [...] | | | | | [place] [address] | | | | + + + + + + | K | 3.4 (L)Comment: Testing | 3.5 - 4.9 | EXTERNAL | | | | performed at [facility], [address] | mmol/L | LAB | | | | [address], | | | | | | [place] [address] | | | | + + + + + + | Cl | 102Comment: Testing | 99 - 109 mmol/L | EXTERNAL | | | | performed at [facility], [address] | | LAB | | | | [address], | | | | | | [place] [address] | | | | + + + + + + | CO2 | 27Comment: Testing | 23 - 32 mmol/L | EXTERNAL | | | | performed at [facility], [address] | | LAB | | | | [address], | | | | | | [place] [address] | | | | + + + + + + | Anion Gap | 12Comment: Testing | 5 - 20 mmol/L | EXTERNAL | | | | performed at [facility], [address] | | LAB | | | | [address], | | | | | | [place] [address] | | | | + + + + + + | Glucose, | 151 (H)Comment: Testing | 65 - 99 mg/dL | EXTERNAL | | | Fasting | performed at [facility], [address] | | LAB | | | | [address], | | | | | | [place] [address] | | | | + + + + + + | BUN | 8Comment: Testing | 8 - 25 mg/dL | EXTERNAL | | | | performed at [facility], [address] | | LAB | | | | [address], | | | | | | [place] [address] | | | | + + + + + + | Creatinine | 0.44 (L)Comment: Testing | 0.70 - 1.30 | EXTERNAL | | | | performed at [facility], [address] | mg/dL | LAB | | | | [address], | | | | | | [place] [address] | | | | + + + + + + | BUN/Creatin | 18Comment: Testing | | EXTERNAL | | | ine Ratio | performed at [facility], [address] | | LAB | | | | [address], | | | | | | [place] [address] | | | | + + + + + + | Calcium | 9.1Comment: NOTE NEW | 8.5 - 10.5 | EXTERNAL | | | | REFERENCE RANGETesting | mg/dL | LAB | | | | performed at [facility], [address] | | | | | | [address], | | | | | | [place] [address] | | | | + + + [...] | | | | | | at [facility], [address] | | | | | | [address], | | | | | | [place] [address] | | | | + + + [...] LAB | | | | performed at [facility];[address] | | | | | | [address];[place], [place] | | | | | | [address] | | | | + + + [...] EXTERNAL | | | | performed at [facility], [address] | | LAB | | | | [address], | | | | | | [place] [address] | | | | + + + + + + | RED CELL | 3.36 (L)Comment: Testing | 4.20 - 5.70 | EXTERNAL | | | COUNT | performed at [facility], [address] | M/uL | LAB | | | | [address], | | | | | | [place] [address] | | | | + + + + + + | Hgb | 11.1 (L)Comment: Testing | 13.2 - 17.0 | EXTERNAL | | | | performed at [facility], [address] | g/dL | LAB | | | | [address], | | | | | | [place] [address] | | | | + + + + + + | Hematocrit, | 34.0 (L)Comment: Testing | 39.0 - 50.0 % | EXTERNAL | | | POC | performed at [facility], [address] | | LAB | | | | [address], | | | | | | [place] [address] | | | | + + + + + + | MCV | 101.0 (H)Comment: | 80.0 - 100.0 fl | EXTERNAL | | | | Testing performed at | | LAB | | | | [facility], [address] | | | | | | [place] | | | | | | [address] | | | | + + + + + + | MCH | 33.1Comment: Testing | 27.0 - 34.0 pg | EXTERNAL | | | | performed at [facility], [address] | | LAB | | | | [address], | | | | | | [place] [address] | | | | + + + + + + | MCHC | 32.7Comment: Testing | 32.0 - 35.5 | EXTERNAL | | | | performed at [facility], [address] | g/dL | LAB | | | | [address], | | | | | | [place] [address] | | | | + + + + + + | RDW-CV | 59.1 (H)Comment: Testing | 37 - 53 fl | EXTERNAL | | | | performed at [facility], [address] | | LAB | | | | [address], | | | | | | [place] [address] | | | | + + + + + + | Platelet | 162Comment: Testing | 150 - 400 K/uL | EXTERNAL | | | Count | performed at [facility], [address] | | LAB | | | Plasma | [address], | | | | | | [place] [address] | | | | + + + + + + | MPV | 8.6Comment: Testing | fl | EXTERNAL | | | | performed at [facility], [address] | | LAB | | | | [address], | | | | | | [place] [address] | | | | + + + + + + | Differentia | AUTOMATEDComment: | | EXTERNAL | | | l Type | Testing performed at | | LAB | | | | [facility], [address] | | | | | | [place] | | | | | | [address] | | | | + + + + + + | % Segmented | 72.7Comment: Testing | % | EXTERNAL | | | | performed at [facility], [address] | | LAB | | | Neutrophils | [address], | | | | | | [place] [address] | | | | + + + + + + | % | 12.1Comment: Testing | % | EXTERNAL | | | Lymphocytes | performed at [facility], [address] | | LAB | | | | [address], | | | | | | [place] [address] | | | | + + + + + + | % Monocytes | 13.0Comment: Testing | % | EXTERNAL | | | | performed at [facility], [address] | | LAB | | | | [address], | | | | | | [place] [address] | | | | + + + + + + | % | 1.7Comment: Testing | % | EXTERNAL | | | Eosinophils | performed at [facility], [address] | | LAB | | | | [address], | | | | | | [place] [address] | | | | + + + + + + | % Basophils | 0.5Comment: Testing | % | EXTERNAL | | | | performed at [facility], [address] | | LAB | | | | [address], | | | | | | [place], [place] [address] | | | | + + + + + + | Absolute | 5.9Comment: Testing | 1.9 - 7.4 K/uL | EXTERNAL | | | Segmented | performed at [facility], [address] | | LAB | | | Neutrophils | [address], | | | | | | [place] [address] | | | | + + + + + + | Absolute | 1.0Comment: Testing | 1.0 - 3.9 K/uL | EXTERNAL | | | Lymphocytes | performed at [facility], [address] | | LAB | | | | [address], | | | | | | [place] [address] | | | | + + + + + + | Absolute | 1.1 (H)Comment: Testing | 0 - 0.8 K/uL | EXTERNAL | | | Monocytes | performed at [facility], [address] | | LAB | | | | [address], | | | | | | [place] [address] | | | | + + + + + + | Absolute | 0.1Comment: Testing | 0 - 0.5 K/uL | EXTERNAL | | | Eosinophils | performed at [facility], [address] | | LAB | | | | [address], | | | | | | [place] [address] | | | | + + + + + + | Absolute | 0.0Comment: Testing | 0 - 0.1 K/uL | EXTERNAL | | | Basophils | performed at [facility], [address] | | LAB | | | | [address], | | | | | | [place] [address] | | | | + + + [...] | | | | | [place] [address] | | | | + + + + + + | K | 3.8Comment: Testing | 3.5 - 4.9 | EXTERNAL | | | | performed at [facility], [address] | mmol/L | LAB | | | | [address], | | | | | | [place] [address] | | | | + + + + + + | Cl | 105Comment: Testing | 99 - 109 mmol/L | EXTERNAL | | | | performed at [facility], [address] | | LAB | | | | [address], | | | | | | [place] [address] | | | | + + + + + + | CO2 | 28Comment: Testing | 23 - 32 mmol/L | EXTERNAL | | | | performed at [facility], [address] | | LAB | | | | [address], | | | | | | [place] [address] | | | | + + + + + + | Anion Gap | 8Comment: Testing | 5 - 20 mmol/L | EXTERNAL | | | | performed at [facility], [address] | | LAB | | | | [address], | | | | | | [place] [address] | | | | + + + + + + | Glucose, | 112 (H)Comment: Testing | 65 - 99 mg/dL | EXTERNAL | | | Fasting | performed at [facility], [address] | | LAB | | | | [address], | | | | | | [place] [address] | | | | + + + + + + | BUN | 8Comment: Testing | 8 - 25 mg/dL | EXTERNAL | | | | performed at [facility], [address] | | LAB | | | | [address], | | | | | | [place] [address] | | | | + + + + + + | Creatinine | 0.51 (L)Comment: Testing | 0.70 - 1.30 | EXTERNAL | | | | performed at [facility], [address] | mg/dL | LAB | | | | [address], | | | | | | [place] [address] | | | | + + + + + + | BUN/Creatin | 16Comment: Testing | | EXTERNAL | | | ine Ratio | performed at [facility], [address] | | LAB | | | | [address], | | | | | | [place] [address] | | | | + + + + + + | Calcium | 8.5Comment: NOTE NEW | 8.5 - 10.5 | EXTERNAL | | | | REFERENCE RANGETesting | mg/dL | LAB | | | | performed at [facility], [address] | | | | | [...] [address], | | | | | | [place] [address] | | | | + + + [...] EXTERNAL | | | | performed at [facility];[address] | mmol/L | LAB | | | | [address];[place] | | | | | | [address] | | | | + + + + + + | K | 3.5Comment: Testing | 3.5 - 4.9 | EXTERNAL | | | | performed at [facility];[address] | mmol/L | LAB | | | | [address];[place] | | | | | | [address] | | | | + + + + + + | Cl | 103Comment: Testing | 99 - 109 mmol/L | EXTERNAL | | | | performed at [facility];[address] | | LAB | | | | [address];[place] | | | | | | [address] | | | | + + + + + + | CO2 | 26Comment: Testing | 23 - 32 mmol/L | EXTERNAL | | | | performed at [facility];[address] | | LAB | | | | [address];[place] | | | | | | [address] | | | | + + + + + + | Anion Gap | 13Comment: Testing | 5 - 20 mmol/L | EXTERNAL | | | | performed at [facility];[address] | | LAB | | | | [address];[place] | | | | | | [address] | | | | + + + + + + | Glucose, | 134 (H)Comment: Testing | 65 - 99 mg/dL | EXTERNAL | | | Fasting | performed at [facility];[address] | | LAB | | | | [address];[place] | | | | | | [address] | | | | + + + + + + | BUN | 9Comment: Testing | 8 - 25 mg/dL | EXTERNAL | | | | performed at [facility];[address] | | LAB | | | | [address];[place] | | | | | | [address] | | | | + + + + + + | Creatinine | 0.75Comment: Testing | 0.70 - 1.30 | EXTERNAL | | | | performed at [facility];[address] | mg/dL | LAB | | | | [address];[place] | | | | | | [address] | | | | + + + + + + | BUN/Creatin | 12Comment: Testing | | EXTERNAL | | | ine Ratio | performed at [facility];[address] | | LAB | | | | [address];[place] | | | | | | [address] | | | | + + + + + + | Calcium | 8.3 (L)Comment: NOTE NEW | 8.5 - 10.5 | EXTERNAL | | | | REFERENCE RANGETesting | mg/dL | LAB | | | | performed at [facility];[address] | | | | | | [facility];[place], [place] | | | | | | [address] | | | | + + + [...] | | | | | | at [facility];[address];[place] [address] | | | | + + + [...] EXTERNAL | | | | performed at [facility];[address] | mmol/L | LAB | | | | [address];[place] | | | | | | [address] | | | | + + + [...] | | | Fingerstick | performed at [facility];[address] | | LAB | | | | [address];[place], [place] | | | | | | [address] | | | | + + + [...] 5.02 cm D-E Excursion: 1.80 cm E-F Furnas: | | | 0.08 m/s EPSS: 0.51 [...] TV A Vishnu: 0.19 m/s TV Dec Furnas: 1.11 m/s2 TV Dec Time: | | | 421.97 ms TV E Vishnu: 0.47 m/s TV E/A Ratio: 2.39 | | | Punch Machine Hand: GD Authenticated by: VISH ACOSTA MD Report [...] | Index (A-L): 25.12 ml/m2LAAs A2C: 17.63 fm8WXTAR A-L A2C: 49.96 mlLAESV MOD A2C: | | 47.06 mlLALs A2C: 5.28 cmLAAs A4C: 18.21 ve1RERTC A-L A4C: 56.04 mlLAESV MOD A4C: | | 48.84 mlLALs A4C: 5.02 cmD-E Excursion: 1.80 cmE-F Furnas: 0.08 m/sEPSS: 0.51 | | cmHR: 50.85 BPMAV maxP.46 mmHgAV meanP.08 mmHgAV Vmax: 1.16 m/Dmitry Vmean: | | 0.83 m/Dmitry VTI: 24.68 cmAVA Vmax: 3.04 cm2AVA (VTI): 2.96 [id number] Dopp: 1.67 | | l/xezo7TYJF Dopp: 3.62 l/minHR: 49.54 BPMLVOT maxP.42 mmHgLVOT [...] 1.86 m/sTV A Vishnu: 0.19 m/sTV Dec Furnas: 1.11 m/s2TV | | Dec Time: 421.97 msTV E Vishnu: 0.47 m/sTV E/A Ratio: 2.39 Punch Machine Hand: | | GDAuthenticated by: VISH RHONDADANIEL [facility] Date/Time: 10-14-2014 18:41:15 | | IMPRESSION: 1. [...] | |D-E Excursion: 1.80 cm | |E-F Furnas: 0.08 m/s | |EPSS: 0.51 cm | [...] A Vishnu: 0.19 m/s | |TV Dec Furnas: 1.11 m/s2 | |TV Dec Time: 421.97 ms | |TV E Vishnu: 0.47 m/s | |TV E/A Ratio: 2.39 | | | |Punch Machine Hand: GD | |Authenticated by: VISH ACOSTA MD [...] | | | 5:24AM Referring Provider Line: [phone] ID: [id number] | | + + + [...] 2014 | | 5:24AM Referring Provider Line: [phone] ID: [id number] | | | |IMPRESSION: | [...] Oct 14 2014 5:24AM Referring Provider Line: [phone] ID: [id number] | + + External Lab: [...] | | | | | [place] [address] | | | | + + + + + + | RED CELL | 2.96 (L)Comment: Testing | 4.20 - 5.70 | EXTERNAL | | | COUNT | performed at [facility], [address] | M/uL | LAB | | | | [address], | | | | | | [place] [address] | | | | + + + + + + | Hgb | 9.7 (L)Comment: Testing | 13.2 - 17.0 | EXTERNAL | | | | performed at [facility], [address] | g/dL | LAB | | | | [address], | | | | | | [place] [address] | | | | + + + + + + | Hematocrit, | 29.4 (L)Comment: Testing | 39.0 - 50.0 % | EXTERNAL | | | POC | performed at [facility], [address] | | LAB | | | | [address], | | | | | | [place] [address] | | | | + + + + + + | MCV | 99.5Comment: Testing | 80.0 - 100.0 fl | EXTERNAL | | | | performed at [facility], [address] | | LAB | | | [address], | | | | | | [place] [address] | | | | + + + + + + | MCH | 32.7Comment: Testing | 27.0 - 34.0 pg | EXTERNAL | | | | performed at [facility], [address] | | LAB | | | | [address], | | | | | | [place] [address] | | | | + + + + + + | MCHC | 32.9Comment: Testing | 32.0 - 35.5 | EXTERNAL | | | | performed at [facility], [address] | g/dL | LAB | | | | [address], | | | | | | [place] [address] | | | | + + + + + + | RDW-CV | 59.1 (H)Comment: Testing | 37 - 53 fl | EXTERNAL | | | | performed at [facility], [address] | | LAB | | | | [address], | | | | | | [place] [address] | | | | + + + + + + | Platelet | 124 (L)Comment: Testing | 150 - 400 K/uL | EXTERNAL | | | Count | performed at [facility], [address] | | LAB | | | Plasma | [address], | | | | | | [place] [address] | | | | + + + + + + | MPV | 8.6Comment: Testing | fl | EXTERNAL | | | | performed at [facility], [address] | | LAB | | | | [address], | | | | | | [place] [address] | | | | + + + + + + | Differentia | AUTOMATEDComment: | | EXTERNAL | | | l Type | Testing performed at | | LAB | | | | [facility], [address] | | | | | | [place] | | | | | | [address] | | | | + + + + + + | % Segmented | 81.9Comment: Testing | % | EXTERNAL | | | | performed at [facility], [address] | | LAB | | | Neutrophils | [address], | | | | | | [place] [address] | | | | + + + + + + | % | 7.9Comment: Testing | % | EXTERNAL | | | Lymphocytes | performed at [facility], [address] | | LAB | | | | [address], | | | | | | [place], [place] [address] | | | | + + + + + + | % Monocytes | 9.3Comment: Testing | % | EXTERNAL | | | | performed at [facility], [address] | | LAB | | | | [address], | | | | | | [place] [address] | | | | + + + + + + | % | 0.7Comment: Testing | % | EXTERNAL | | | Eosinophils | performed at [facility], [address] | | LAB | | | | [address], | | | | | | [place] [address] | | | | + + + + + + | % Basophils | 0.2Comment: Testing | % | EXTERNAL | | | | performed at [facility], [address] | | LAB | | | | [address], | | | | | | [place] [address] | | | | + + + + + + | Absolute | 8.0 (H)Comment: Testing | 1.9 - 7.4 K/uL | EXTERNAL | | | Segmented | performed at [facility], [address] | | LAB | | | Neutrophils | [address] [place], | | | | | | [place] [address] | | | | + + + + + + | Absolute | 0.8 (L)Comment: Testing | 1.0 - 3.9 K/uL | EXTERNAL | | | Lymphocytes | performed at [facility], [address] | | LAB | | | | [place], | | | | | | [place] [address] | | | | + + + + + + | Absolute | 0.9 (H)Comment: Testing | 0 - 0.8 K/uL | EXTERNAL | | | Monocytes | performed at [facility], [address] | | LAB | | | | [address], | | | | | | [place] [address] | | | | + + + + + + | Absolute | 0.1Comment: Testing | 0 - 0.5 K/uL | EXTERNAL | | | Eosinophils | performed at [facility], [address] | | LAB | | | | [address], | | | | | | [place] [address] | | | | + + + + + + | Absolute | 0.0Comment: Testing | 0 - 0.1 K/uL | EXTERNAL | | | Basophils | performed at [facility], [address] | | LAB | | | | [address], | | | | | | [place] [address] | | | | + + + [...] EXTERNAL | | | | performed at [facility], [address] | mmol/L | LAB | | | | [address], | | | | | | [place] [address] | | | | + + + + + + | K | 3.8Comment: Testing | 3.5 - 4.9 | EXTERNAL | | | | performed at [facility], [address] | mmol/L | LAB | | | | [address], | | | | | | [place] [address] | | | | + + + + + + | Cl | 109Comment: Testing | 99 - 109 mmol/L | EXTERNAL | | | | performed at [facility], [address] | | LAB | | | | [address], | | | | | | [place] [address] | | | | + + + + + + | CO2 | 22 (L)Comment: Testing | 23 - 32 mmol/L | EXTERNAL | | | | performed at [facility], [address] | | LAB | | | | [address], | | | | | | [place] [address] | | | | + + + + + + | Anion Gap | 9Comment: Testing | 5 - 20 mmol/L | EXTERNAL | | | | performed at [facility], [address] | | LAB | | | | [address], | | | | | | [place] [address] | | | | + + + + + + | Glucose, | 174 (H)Comment: Testing | 65 - 99 mg/dL | EXTERNAL | | | Fasting | performed at [facility], [address] | | LAB | | | | [address], | | | | | | [place] [address] | | | | + + + + + + | BUN | 9Comment: Testing | 8 - 25 mg/dL | EXTERNAL | | | | performed at [facility], [address] | | LAB | | | | [address], | | | | | | [place] [address] | | | | + + + + + + | Creatinine | 0.50 (L)Comment: Testing | 0.70 - 1.30 | EXTERNAL | | | | performed at [facility], [address] | mg/dL | LAB | | | | [address], | | | | | | [place] [address] | | | | + + + + + + | BUN/Creatin | 18Comment: Testing | | EXTERNAL | | | ine Ratio | performed at [facility], [address] | | LAB | | | | [place], | | | | | | [place] [address] | | | | + + + + + + | Calcium | 7.7 (L)Comment: NOTE NEW | 8.5 - 10.5 | EXTERNAL | | | | REFERENCE RANGETesting | mg/dL | LAB | | | | performed at [facility], [address] | | | | | | [address], | | | | | | [place] [address] | | | | + + + [...] | | | | | | at [facility], [address] | | | | | | [address], | | | | | | [place] [address] | | | | + + + [...] EXTERNAL | | | | performed at [facility] | | LAB | | | | [facility];[place], [place] | | | | | | [address] | | | | + + + [...] | | | | | | at [facility];[address] [place] [address] | | | | | | [facility];[place] [address] | | | | + + + [...] EXTERNAL | | | | performed at [facility];[address] | mmol/L | LAB | | | | [address];[place], [place] | | | | | | [address] | | | | + + + [...] Rad Conversion - 05/05/2019 12:20 AM LENARD LEEUR4//[id number] yearsXR | | CHEST 1 VIEW10/13/2014 3:50 [...] EXTERNAL | | | | performed at [facility], [address] | | LAB | | | | [address], | | | | | | [place] [address] | | | | + + + + + + | RED CELL | 2.98 (L)Comment: Testing | 4.20 - 5.70 | EXTERNAL | | | COUNT | performed at [facility], [address] | M/uL | LAB | | | | [address], | | | | | | [place] [address] | | | | + + + + + + | Hgb | 9.7 (L)Comment: Testing | 13.2 - 17.0 | EXTERNAL | | | | performed at [facility], [address] | g/dL | LAB | | | | [address], | | | | | | [place] [address] | | | | + + + + + + | Hematocrit, | 29.8 (L)Comment: Testing | 39.0 - 50.0 % | EXTERNAL | | | POC | performed at [facility], [address] | | LAB | | | | [address], | | | | | | [place] [address] | | | | + + + + + + | MCV | 100.1 (H)Comment: | 80.0 - 100.0 fl | EXTERNAL | | | | Testing performed at | | LAB | | | | [facility], [address] | | | | | | [place] | | | | | | [address] | | | | + + + + + + | MCH | 32.5Comment: Testing | 27.0 - 34.0 pg | EXTERNAL | | | | performed at [facility], [address] | | LAB | | | | [address], | | | | | | [place] [address] | | | | + + + + + + | MCHC | 32.5Comment: Testing | 32.0 - 35.5 | EXTERNAL | | | | performed at [facility], [address] | g/dL | LAB | | | | [address], | | | | | | [place] [address] | | | | + + + + + + | RDW-CV | 60.4 (H)Comment: Testing | 37 - 53 fl | EXTERNAL | | | | performed at [facility], [address] | | LAB | | | | [address], | | | | | | [place] [address] | | | | + + + + + + | Platelet | 107 (L)Comment: Testing | 150 - 400 K/uL | EXTERNAL | | | Count | performed at [facility], [address] | | LAB | | | Plasma | [address], | | | | | | [place] [address] | | | | + + + + + + | MPV | 8.6Comment: Testing | fl | EXTERNAL | | | | performed at [facility], [address] | | LAB | | | | [address], | | | | | | [place] [address] | | | | + + + + + + | Differentia | AUTOMATEDComment: | | EXTERNAL | | | l Type | Testing performed at | | LAB | | | | [facility], [address] | | | | | | [place] | | | | | | [address] | | | | + + + + + + | % Segmented | 78.6Comment: Testing | % | EXTERNAL | | | | performed at [facility], [address] | | LAB | | | Neutrophils | [address], | | | | | | [place] [address] | | | | + + + + + + | % | 9.1Comment: Testing | % | EXTERNAL | | | Lymphocytes | performed at [facility], [address] | | LAB | | | | [address], | | | | | | [place] [address] | | | | + + + + + + | % Monocytes | 11.3Comment: Testing | % | EXTERNAL | | | | performed at [facility], [address] | | LAB | | | | [address], | | | | | | [place] [address] | | | | + + + + + + | % | 0.5Comment: Testing | % | EXTERNAL | | | Eosinophils | performed at [facility], [address] | | LAB | | | | [address], | | | | | | [place] [address] | | | | + + + + + + | % Basophils | 0.5Comment: Testing | % | EXTERNAL | | | | performed at [facility], [address] | | LAB | | | | [address], | | | | | | [place] [address] | | | | + + + + + + | Absolute | 5.6Comment: Testing | 1.9 - 7.4 K/uL | EXTERNAL | | | Segmented | performed at [facility], [address] | | LAB | | | Neutrophils | [address], | | | | | | [place], [place] [address] | | | | + + + + + + | Absolute | 0.6 (L)Comment: Testing | 1.0 - 3.9 K/uL | EXTERNAL | | | Lymphocytes | performed at [facility], [address] | | LAB | | | | [address], | | | | | | [place] [address] | | | | + + + + + + | Absolute | 0.8Comment: Testing | 0 - 0.8 K/uL | EXTERNAL | | | Monocytes | performed at [facility], [address] | | LAB | | | | [address], | | | | | | [place] [address] | | | | + + + + + + | Absolute | 0.0Comment: Testing | 0 - 0.5 K/uL | EXTERNAL | | | Eosinophils | performed at [facility], [address] | | LAB | | | [address], | | | | | | [place] [address] | | | | + + + + + + | Absolute | 0.0Comment: Testing | 0 - 0.1 K/uL | EXTERNAL | | | Basophils | performed at [facility], [address] | | LAB | | | | [address], | | | | | | [place] [address] | | | | + + + [...] | | | | | [place] [address] | | | | + + + + + + | K | 3.4 (L)Comment: Testing | 3.5 - 4.9 | EXTERNAL | | | | performed at [facility], [address] | mmol/L | LAB | | | | [address], | | | | | | [place] [address] | | | | + + + + + + | Cl | 112 (H)Comment: Testing | 99 - 109 mmol/L | EXTERNAL | | | | performed at [facility], [address] | | LAB | | | | [address], | | | | | | [place] [address] | | | | + + + + + + | CO2 | 19 (L)Comment: Testing | 23 - 32 mmol/L | EXTERNAL | | | | performed at [facility], [address] | | LAB | | | | [address], | | | | | | [place] [address] | | | | + + + + + + | Anion Gap | 10Comment: Testing | 5 - 20 mmol/L | EXTERNAL | | | | performed at [facility], [address] | | LAB | | | | [address], | | | | | | [place] [address] | | | | + + + + + + | Glucose, | 133 (H)Comment: Testing | 65 - 99 mg/dL | EXTERNAL | | | Fasting | performed at [facility], [address] | | LAB | | | | [address], | | | | | | [place] [address] | | | | + + + + + + | BUN | 5 (L)Comment: Testing | 8 - 25 mg/dL | EXTERNAL | | | | performed at [facility], [address] | | LAB | | | | [address], | | | | | | [place] [address] | | | | + + + + + + | Creatinine | 0.47 (L)Comment: Testing | 0.70 - 1.30 | EXTERNAL | | | | performed at [facility], [address] | mg/dL | LAB | | | | [address], | | | | | | [place] [address] | | | | + + + + + + | BUN/Creatin | 11Comment: Testing | | EXTERNAL | | | ine Ratio | performed at [facility], [address] | | LAB | | | | [address], | | | | | | [place] [address] | | | | + + + + + + | Calcium | 7.8 (L)Comment: NOTE NEW | 8.5 - 10.5 | EXTERNAL | | | | REFERENCE RANGETesting | mg/dL | LAB | | | | performed at [facility], [address] | | | | | | [place], | | | | | | [place] [address] | | | | + + + [...] | | | | | | at [facility], [address] | | | | | | [place] [address], | | | | | | [place] [address] | | | | + + + [...] LAB | | | | performed at [facility];[address] | | | | [address];[place], [place] | | | | | | [address] | | | | + + + [...] LAB | | | | performed at [facility] | | | | | | [address];[place], [place] | | | | | | [address] | | | | + + + [...] | | | | | performed at [facility] | | | | | | [address];[place], [place] | | | | | | [address] | | | | + + + [...] EXTERNAL | | | | performed at [facility], [address] | | LAB | | | | [address], | | | | | | [place] [address] | | | | + + + + + + | RED CELL | 3.39 (L)Comment: Testing | 4.20 - 5.70 | EXTERNAL | | | COUNT | performed at [facility], [address] | M/uL | LAB | | | | [address], | | | | | | [place] [address] | | | | + + + + + + | Hgb | 11.1 (L)Comment: Testing | 13.2 - 17.0 | EXTERNAL | | | | performed at [facility], [address] | g/dL | LAB | | | | [address], | | | | | | [place] [address] | | | | + + + + + + | Hematocrit, | 33.5 (L)Comment: Testing | 39.0 - 50.0 % | EXTERNAL | | | POC | performed at [facility], [address] | | LAB | | | | [address], | | | | | | [place] [address] | | | | + + + + + + | MCV | 98.6Comment: Testing | 80.0 - 100.0 fl | EXTERNAL | | | | performed at [facility], [address] | | LAB | | | | [address], | | | | | | [place] [address] | | | | + + + + + + | MCH | 32.7Comment: Testing | 27.0 - 34.0 pg | EXTERNAL | | | | performed at [facility], [address] | | LAB | | | | [address], | | | | | | [place] [address] | | | | + + + + + + | MCHC | 33.1Comment: Testing | 32.0 - 35.5 | EXTERNAL | | | | performed at [facility], [address] | g/dL | LAB | | | | [address], | | | | | | [place] [address] | | | | + + + + + + | RDW-CV | 59.5 (H)Comment: Testing | 37 - 53 fl | EXTERNAL | | | | performed at [facility], [address] | | LAB | | | | [address], | | | | | | [place] [address] | | | | + + + + + + | Platelet | 138 (L)Comment: Testing | 150 - 400 K/uL | EXTERNAL | | | Count | performed at [facility], [address] | | LAB | | | Plasma | [address], | | | | | | [place] [address] | | | | + + + + + + | MPV | 8.4Comment: Testing | fl | EXTERNAL | | | | performed at [facility], [address] | | LAB | | | | [address], | | | | | | [place] [address] | | | | + + + + + + | Differentia | AUTOMATEDComment: | | EXTERNAL | | | l Type | Testing performed at | | LAB | | | | [facility], [address] | | | | | | [place] | | | | | | [address] | | | | + + + + + + | % Segmented | 79.3Comment: Testing | % | EXTERNAL | | | | performed at [facility], [address] | | LAB | | | Neutrophils | [address], | | | | | | [place] [address] | | | | + + + + + + | % | 7.8Comment: Testing | % | EXTERNAL | | | Lymphocytes | performed at [facility], [address] | | LAB | | | | [address], | | | | | | [place] [address] | | | | + + + [...] | | | | | [place] [address] | | | | + + + + + + | % Basophils | 0.5Comment: Testing | % | EXTERNAL | | | | performed at [facility], [address] | | LAB | | | | [address], | | | | | | [place] [address] | | | | + + + + + + | Absolute | 7.2Comment: Testing | 1.9 - 7.4 K/uL | EXTERNAL | | | Segmented | performed at [facility], [address] | | LAB | | | Neutrophils | [address], | | | | | | [place] [address] | | | | + + + + + + | Absolute | 0.7 (L)Comment: Testing | 1.0 - 3.9 K/uL | EXTERNAL | | | Lymphocytes | performed at [facility], [address] | | LAB | | | | [address], | | | | | | [place] [address] | | | | + + + + + + | Absolute | 1.1 (H)Comment: Testing | 0 - 0.8 K/uL | EXTERNAL | | | Monocytes | performed at [facility], [address] | | LAB | | | | [address], | | | | | | [place] [address] | | | | + + + + + + | Absolute | 0.0Comment: Testing | 0 - 0.5 K/uL | EXTERNAL | | | Eosinophils | performed at [facility], [address] | | LAB | | | | [address], | | | | | | [place] [address] | | | | + + + + + + | Absolute | 0.0Comment: Testing | 0 - 0.1 K/uL | EXTERNAL | | | Basophils | performed at [facility], [address] | | LAB | | | | [address], | | | | | | [place] [address] | | | | + + + [...] EXTERNAL | | | | performed at [facility], [address] | | LAB | | | | [address], | | | | | | [place] [address] | | | | + + + [...] | | | | | [place] [address] | | | | + + + + + + | K | 2.8 (L)Comment: Testing | 3.5 - 4.9 | EXTERNAL | | | | performed at [facility], [address] | mmol/L | LAB | | | | [address], | | | | | | [place] [address] | | | | + + + + + + | Cl | 105Comment: Testing | 99 - 109 mmol/L | EXTERNAL | | | | performed at [facility], [address] | | LAB | | | | [address], | | | | | | [place] [address] | | | | + + + + + + | CO2 | 23Comment: Testing | 23 - 32 mmol/L | EXTERNAL | | | | performed at [facility], [address] | | LAB | | | | [address], | | | | | | [place] [address] | | | | + + + + + + | Anion Gap | 9Comment: Testing | 5 - 20 mmol/L | EXTERNAL | | | | performed at [facility], [address] | | LAB | | | | [address], | | | | | | [place] [address] | | | | + + + + + + | Glucose, | 163 (H)Comment: Testing | 65 - 99 mg/dL | EXTERNAL | | | Fasting | performed at [facility], [address] | | LAB | | | | [address], | | | | | | [place] [address] | | | | + + + + + + | BUN | 7 (L)Comment: Testing | 8 - 25 mg/dL | EXTERNAL | | | | performed at [facility], [address] | | LAB | | | | [address], | | | | | | [place] [address] | | | | + + + + + + | Creatinine | 0.57 (L)Comment: Testing | 0.70 - 1.30 | EXTERNAL | | | | performed at [facility], [address] | mg/dL | LAB | | | | [address], | | | | | | [place] [address] | | | | + + + + + + | BUN/Creatin | 12Comment: Testing | | EXTERNAL | | | ine Ratio | performed at [facility], [address] | | LAB | | | | [address], | | | | | | [place] [address] | | | | + + + + + + | Calcium | 7.8 (L)Comment: NOTE NEW | 8.5 - 10.5 | EXTERNAL | | | | REFERENCE RANGETesting | mg/dL | LAB | | | | performed at [facility], [address] | | | | | | [place] [address], | | | | | | [place] [address] | | | | + + + [...] [address], | | | | | | [place] [address] | | | | + + + [...] EXTERNAL | | | | performed at [facility];[address] | | LAB | | | | [address];[place] | | | | | | [address] | | | | + + + + + + | RED CELL | 3.63 (L)Comment: Testing | 4.20 - 5.70 | EXTERNAL | | | COUNT | performed at [facility];[address] | M/uL | LAB | | | | [address];[place] | | | | | | [address] | | | | + + + + + + | Hgb | 10.9 (L)Comment: Testing | 13.2 - 17.0 | EXTERNAL | | | | performed at [facility];[address] | g/dL | LAB | | | | [address];[place] | | | | | | [address] | | | | + + + + + + | Hematocrit, | 34.9 (L)Comment: Testing | 39.0 - 50.0 % | EXTERNAL | | | POC | performed at [facility];[address] | | LAB | | | | [address];[place] | | | | | | [address] | | | | + + + + + + | MCV | 96.2Comment: Testing | 80.0 - 100.0 fl | EXTERNAL | | | | performed at [facility];[address] | | LAB | | | | [address];[place] | | | | | | [address] | | | | + + + + + + | MCH | 30.0Comment: Testing | 27.0 - 34.0 pg | EXTERNAL | | | | performed at [facility];[address] | | LAB | | | | [address];[place] | | | | | | [address] | | | | + + + + + + | MCHC | 31.2 (L)Comment: Testing | 32.0 - 35.5 | EXTERNAL | | | | performed at [facility];[address] | g/dL | LAB | | | | [address];[place] | | | | | | [address] | | | | + + + + + + | RDW-CV | 58.6 (H)Comment: Testing | 37 - 53 fl | EXTERNAL | | | | performed at [facility];[address] | | LAB | | | | [address];[place] | | | | | | [address] | | | | + + + + + + | Platelet | 164Comment: Testing | 150 - 400 K/uL | EXTERNAL | | | Count | performed at [facility];[address] | | LAB | | | Plasma | [address];[place] | | | | | | [address] | | | | + + + + + + | MPV | 7.8Comment: Testing | fl | EXTERNAL | | | | performed at [facility];[address] | | LAB | | | | [address];[place] | | | | | | [address] | | | | + + + + + + | Differentia | AUTOMATEDComment: | | EXTERNAL | | | l Type | Testing performed at | | LAB | | | | [facility];[address];[place] [address] | | | | + + + + + + | % Segmented | 72.3Comment: Testing | % | EXTERNAL | | | | performed at [facility];[address] | | LAB | | | Neutrophils | [address];[place] | | | | | | [address] | | | | + + + + + + | % | 13.2Comment: Testing | % | EXTERNAL | | | Lymphocytes | performed at [facility];[address] | | LAB | | | | [address];[place] | | | | | | [address] | | | | + + + + + + | % Monocytes | 13.4Comment: Testing | % | EXTERNAL | | | | performed at [facility];[address] | | LAB | | | | [address];[place] | | | | | | [address] | | | | + + + + + + | % | 0.3Comment: Testing | % | EXTERNAL | | | Eosinophils | performed at [facility];[address] | | LAB | | | | [address];[place] | | | | | | [address] | | | | + + + + + + | % Basophils | 0.8Comment: Testing | % | EXTERNAL | | | | performed at [facility];[address] | | LAB | | | | [address];[place] | | | | | | [address] | | | | + + + + + + | Absolute | 7.0Comment: Testing | 1.9 - 7.4 K/uL | EXTERNAL | | | Segmented | performed at [facility];[address] | | LAB | | | Neutrophils | [address];[place] | | | | | | [address] | | | | + + + + + + | Absolute | 1.3Comment: Testing | 1.0 - 3.9 K/uL | EXTERNAL | | | Lymphocytes | performed at [facility];[address] | | LAB | | | | [address];[place] | | | | | | [address] | | | | + + + + + + | Absolute | 1.3 (H)Comment: Testing | 0 - 0.8 K/uL | EXTERNAL | | | Monocytes | performed at [facility];[address] | | LAB | | | | [address];[place] | | | | | | [address] | | | | + + + + + + | Absolute | 0.0Comment: Testing | 0 - 0.5 K/uL | EXTERNAL | | | Eosinophils | performed at [facility];[address] | | LAB | | | | [address];[place] | | | | | | [address] | | | | + + + + + + | Absolute | 0.1Comment: Testing | 0 - 0.1 K/uL | EXTERNAL | | | Basophils | performed at [facility];[address] | | LAB | | | | [address];[place] | | | | | | [address] | | | | + + + [...] EXTERNAL LAB | | Testing performed at [facility];[address] [place] [address];[place] [address] MRSA PCR | | | NEGATIVE Testing performed at | | | [address];[place] [address] | | + + + + +---------+ [...] REMY | | | Testing performed at [facility], [address] [place], [place] | | | [address] | | + + + + +---------+ [...] EXTERNAL | | | | performed at [facility];[address] | | LAB | | | | [address];[place] | | | | | | [address] | | | | + + + [...] EXTERNAL | | | | performed at [facility] | | LAB | | | | [facility];[place], [place] | | | | | | [address] | | | | + + + [...] | | | Total | performed at [facility];[address] | | LAB | | | | [address];[place], [place] | | | | | | [address] | | | | + + + + + + | Albumin | 2.8 (L)Comment: Testing | 3.6 - 5.0 g/dL | EXTERNAL | | | | performed at [facility];[address] | | LAB | | | | [address];[place] | | | | | | [address] | | | | + + + + + + | Bilirubin | 1.6 (H)Comment: Testing | 0.1 - 1.5 mg/dL | EXTERNAL | | | Total | performed at [facility];[address] | | LAB | | | | [address];[place] | | | | | | [address] | | | | + + + + + + | Bilirubin | 0.6 (H)Comment: Testing | 0.0 - 0.3 mg/dL | EXTERNAL | | | Direct | performed at [facility];[address] | | LAB | | | | [address];[place] | | | | | | [address] | | | | + + + + + + | ALP, | 138 (H)Comment: Testing | 35 - 115 U/L | EXTERNAL | | | External | performed at [facility];[address] | | LAB | | | | [address];[place] | | | | | | [address] | | | | + + + + + + | AST | 61 (H)Comment: Testing | 10 - 45 U/L | EXTERNAL | | | | performed at [facility];[address] | | LAB | | | | [address];[place] | | | | | | [address] | | | | + + + + + + | ALT | 54Comment: Testing | 10 - 65 U/L | EXTERNAL | | | | performed at [facility];[address] | | LAB | | | | [address];[place] | | | | | | [address] | | | | + + + [...] 11 October 2014. | | | FINDINGS: Technical Service Representative is unremarkable. The patient is post interval [...] examination: 11 October 2014. | | FINDINGS: Technical Service Representative is unremarkable. The patient is post interval [...] EXTERNAL | | | | performed at [facility];[address] | mmol/L | LAB | | | | [address];[place], [place] | | | | | | [address] | | | | + + + + + + | K | 2.7 (LL)Comment: RESULT | 3.5 - 4.9 | EXTERNAL | | | | READ BACK BY:TAYA Price IN [place] | mmol/L | LAB | | | | AT 2012 BY FANNY ON | | | | | | [id number] performed | | | | | | at [facility];[address];[place] [address] | | | | + + + + + + | Cl | 102Comment: Testing | 99 - 109 mmol/L | EXTERNAL | | | | performed at [facility];[address] | | LAB | | | | [address];[place] | | | | | | [address] | | | | + + + + + + | CO2 | 25Comment: Testing | 23 - 32 mmol/L | EXTERNAL | | | | performed at [facility];[address] | | LAB | | | | [address];[place] | | | | | | [address] | | | | + + + + + + | Anion Gap | 14Comment: Testing | 5 - 20 mmol/L | EXTERNAL | | | | performed at [facility];[address] | | LAB | | | | [address];[place] | | | | | | [address] | | | | + + + + + + | Glucose, | 143 (H)Comment: Testing | 65 - 99 mg/dL | EXTERNAL | | | Fasting | performed at [facility];[address] | | LAB | | | | [address];[place] | | | | | | [address] | | | | + + + + + + | BUN | 7 (L)Comment: Testing | 8 - 25 mg/dL | EXTERNAL | | | | performed at [facility] [place];[address] | | LAB | | | | [address];[place] | | | | | | [address] | | | | + + + + + + | Creatinine | 0.68 (L)Comment: Testing | 0.70 - 1.30 | EXTERNAL | | | | performed at [facility];888 | mg/dL | LAB | | | | [address];[place] | | | | | | [address] | | | | + + + + + + | BUN/Creatin | 10Comment: Testing | | EXTERNAL | | | ine Ratio | performed at [facility] [place];[address] | | LAB | | | | [address];[place] | | | | | | [address] | | | | + + + + + + | Calcium | 7.3 (L)Comment: NOTE NEW | 8.5 - 10.5 | EXTERNAL | | | | REFERENCE RANGETesting | mg/dL | LAB | | | | performed at [facility];[address] | | | | | | [address];[place] | | | | | | [address] | | | | + + + [...] | | | | | | at [facility];[address];[place] [address] | | | | + + + [...] | | LAB | | | | [facility];[address];[place] [id number] | | | | + + + + + + | PCO2 ART | 33 (L)Comment: Testing | 35 - 45 mmHg | EXTERNAL | | | | performed at [facility];[address] | | LAB | | | | [address];[place] | | | | | | [address] | | | | + + + + + + | PO2 ART | 225 (H)Comment: Testing | 80 - 105 mmHg | EXTERNAL | | | | performed at [facility] [place] [facility];[address] | | LAB | | | | [address];[place] | | | | | | [address] | | | | + + + + + + | HCO3 ART | 28 (H)Comment: Testing | 22 - 26 mmol/L | EXTERNAL | | | | performed at [facility];[address] | | LAB | | | | [address];[place] | | | | | | [address] | | | | + + + + + + | POC | 29 (H)Comment: Testing | 23 - 27 mEq/L | EXTERNAL | | | APPEARANCE | performed at [facility] [place] [facility];[address] | | LAB | | | UA | [address];[place] | | | | | | [address] | | | | + + + + + + | Base | 6 (H)Comment: Testing | 0 - 3 mEq/L | EXTERNAL | | | Excess, | performed at [facility];[address] | | LAB | | | Arterial | [address];[place] | | | | | | [address] | | | | + + + + + + | O2 SAT ART | 100 (H)Comment: Testing | 95 - 98 % | EXTERNAL | | | | performed at [facility];[address] | | LAB | | | | [address];[place] | | | | | | [address] | | | | + + + + + + | Sodium, POC | 138Comment: Testing | 135 - 145 mEq/L | EXTERNAL | | | | performed at [facility] [place];[address] | | LAB | | | | [address];[place] | | | | | | [address] | | | | + + + + + + | Potassium, | 2.6 (LL)Comment: Testing | 3.5 - 5.0 mEq/L | EXTERNAL | | | POC | performed at [facility];[address] | | LAB | | | | [address];[place] | | | | | | [address] | | | | + + + + + + | Ionized | 0.98 (L)Comment: Testing | 1.12 - 1.32 | EXTERNAL | | | Calcium, | performed at [facility];888 | mmol/L | LAB | | | POC | [address];[place] | | | | | | [address] | | | | + + + + + + | Glucose, | 146 (H)Comment: Testing | 65 - 99 mg/dL | EXTERNAL | | | POC | performed at [facility] [place];[address] | | LAB | | | | [address];[place] | | | | | | [id number] | | | | + + + + + + | Hematocrit, | 35 (L)Comment: Testing | 40.0 - 50.0 % | EXTERNAL | | | POC | performed at [facility] [place];[address] | | LAB | | | | [address];[place] | | | | | | [id number] | | | | + + + + + + | Hemoglobin, | 11.9 (L)Comment: Testing | 13.7 - 16.7 | EXTERNAL | | | POC | performed at [facility] [place];888 | g/dL | LAB | | | | [address];[place] | | | | | | [id number] | | | | + + + [...] of fall | + + | Seizure ([facility]) Other convulsions | + + | Alcohol withdrawal ([facility]) Alcohol withdrawal | + + | Cerebral edema ([facility]) Cerebral edema | + + | Subdural hematoma, post-traumatic, sequela | + + | Traumatic brain injury, closed, sequela | + + documented in this encounter
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
--- OUTSIDE RECORDS SUMMARY | ~2019-08-24 | XMS | Encounter Summary ---
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 | Role | Phone | + +------+ + PCP | Unavailable | + +------+ + Encounter Details +--------+ + + + + | Date | Type | Department | Care Team | Description | +--------+ + + + + | 06/22/ | Hospital | [facility] | Sandip Hall MD | | | 2008 - | Encounter | [facility] | [address] | | | | | MED [address] [place] [address] S | [place] [address] | | | 06/23/ | | [address] | [phone] | | | 2008 | | [place], [place] | | | | | | [address] | Elizabeth Galan MD | | | | | [phone] | [address] | | | | | | [address] [place], | | | | | | [place] [address] | | | | | | [phone] | | +--------+ + + + + [...] MEDICAL HISTORY: The patient is a 48-year-old [place] with a long history of known liver cirrhosis, end-stage liver disease secondary to alcoholism and hepatitis B and history of drug abuse who came into the emergency department in [place] with hepatic encephalopathy, having been at the [facility], 1928[facility]1983 visiting with his grandmother, found to be [...] needs to get back one to his [facility] and to return to his [...] and was discharged to return to his [facility] clinic, which he promises me he [...] this time until cleared by his primary veterinarian laboratory animal care. I spent 46 minutes seeing patient, coordinating discharge, and attempting to personal financial counselor him into staying. _ TOBIN JAVIER MD D: Yoselyn Jun 23 16:37:54 2008 EST T: Yoselyn Jun 23 23:55:09 2008 EST Authenticated by Tobin Javier MD On 06/24/2009 06:22:14 AM [facility] - 06/23/2009 12:00 AM PDT documented in this enc ounter Progress Notes [facility] - 06/24/2009 12:00 AM PDT [facility] - 06/24/2009 12:00 AM PDT [facility] - 06/24/2009 12:00 AM PDT documented [...] mild bony spurring in the AC joint. [place] EXAM NUMBER: | | | [id number] CHEST 1V [id number]=[id number] | | + + + + + [...] spurring in the AC joint. | | [place] EXAM NUMBER: [id number] CHEST 1V [id number] | | IMPRESSION: | | IMPRESSION: No [...]
--- OUTSIDE RECORDS SUMMARY | ~2019-08-24 | XMS | Encounter Summary ---
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 Dr. Chong was not available for the surgery, secondary to a de litary commitment, and I did see the patient in follow-up. The patient was then admitted to the [facility] on 05/28/2015 for an elective right-sided cranioplasty. [...] the patient was transferred back to his fci, [facility] on 06/03/2015 Past Medical History Diagnosis Date Alcohol abuse Frequent falls Drug abuse Seizures (HCC) Other chronic pain Depression Skin abscess Anemia Hemiparesis (HCC) Past Surgical History Procedure Laterality Date Craniotomy Right 10/11/2014 Procedure: CRANIOTOMY - FOR BLEED; Surgeon: Anthony Chong MD; Location: [facility] IN OR; Service: Neurosurgery; Laterality: Right; Craniectomy Right 10/11/2014 Procedure: CRANIECTOMY; Surgeon: Anthony Chong MD; Location: [facility]; Ser vice: Neurosurgery; Laterality: Right; Cranial flap replacement Right 05/28/2015 Procedure: CRANIAL - FLAP REPLACEMENT; Surgeon: Livier Betancur MD; Location: [facility] OR; Service: Neurosurgery; Laterality: Right; Cranioplasty for cranial defect Right 05/29/2015 Procedure: CRANIOPLASTY; Surgeon: Livier Betancur MD; Location: [facility]; Service: Neurosurgery; Laterality: Right; Allergies [...] PLAN The patient was discharged to his fci, the [facility] in [facility]. The patient was asked to return to the clinic in 2 weeks for removal of the right-sided sca lp diamond. 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 Follow up: Livier Betancur MD [address] [place] [address] [id number] In 2 weeks Staple removal [facility] [address] [place] [id number] Medication List CHANGE how you take these [...] are the prescriptions that you need to warp picker. You may get the following medications [...] Josseline Mera RN Service: (none) Author Type: Permit Specialist Filed: 06/03/15 0992 Date of Service: 06/03/151406 Status: Signed Biomechanical Engineer: Josseline Mera RN (Permit Specialist) Disposition: [facility] Transportation: D Map through [employer]. All orders, signed AVS, and prescriptions have been faxed All DC paperwork completed Patient and family in agreement with discharge plan Josseline Mera onver alem Transaction, Provider Unknown - 06/03/2015 12:21 PM PDT Nurse Progress Note by Shannon Nguyen RN at 06/03/15 1221 Author: Shannon Nguyen RN Service: (none) Author Type: Registered Nurse Filed: 06/03/15 1224 Date of Service: 06/03/15 1221 Status: Signed Biomechanical Engineer: Shannon Nguyen RN (Registered Nurse) Pt discharged back to [facility] in [place]. Paperwork previously faxed. IV removed, belon gings with transport, talha in place. Left message for mother, notifying her of D/C. No c oncerns. SHANNON Nguyen RN onver alem Transaction, Provider Unknown - 06/03/2015 11:14 AM PDT Therapy Progress Note by Yazan Main PTA at 06/03/15 1114 Author: Yazan Main PTA Service: (none) Author Type: Cq Developer Filed: 06/03/15 1122 Date of Service: 06/03/15 1114 Status: Signed Biomechanical Engineer: Yazan Main PTA (Cq Developer) 06/03/15 1114 PT Last Visit PT Received [...] Alternating;Decreased robina;Scissoring;Ataxic;Narrow base Assistive Device Other (Comment) (DIVERSIONAL THERAPIST'S ASSISTANT) Activity Tolerance Activity Tolerance Patient limited by fatigue Plan Treatment/Interventions Continue per Primary PT POC Progress Progressing toward goals Recommendation Recommendations SNF PT recommendations were discussed and verified with supervising PT. Juhi Abel MA, CCC-ROTARY SHEAR CUTTER - 06/03/2015 9:07 AM PDTFormatting of this note might be different fr om the original. Therapy Progress Note by Juhi Gregory MA CCC-ROTARY SHEAR CUTTER at 06/03/15 09 Author: Juhi Gregory MA CCC-ROTARY SHEAR CUTTER Service: (none) Author Type: Speech and Business Enterprise Officer ologist Filed: 06/03/15906 Date of Service: 06/03/15906 Status: Signed Biomechanical Engineer: Juhi Gregory MA CCC-ROTARY SHEAR CUTTER (Speech and Language Pathologist) 06/03/15 0850 Swallowing Assessment Eval Swallowing Treatment Yes Thin Presentation Cup Oral Phase Thin WFL Pharyngeal Phase Cough - delayed [place] Presentation Cup Oral WFL Pharyngeal Phase Delayed swallow initiated Puree Presentation Spoon Oral Phase WFL Pharyngeal Delayed Swallow Recommendations Liquids Consistency Recommendations [place] thick Diet Consistency Recommendation Pureed Recommendations Dysphagia treatment;Feeding assist;Set up with meals;Check on patients freq uently throught out meals Risk for Aspiration Moderate Compensatory Swallowing Strategies Upright as possible for all oral intake;Remain upright f or 30 minutes after meals;Slow rate presentation;Small bites/sips;Eat/feed slowly Recommended Form of Meds Meds floated in puree Summary pt eating breakfast with RN in room when ROTARY SHEAR CUTTER entered. pt with delayed swallow but no [...] Josseline Mera RN Service: (none) Author Type: Permit Specialist Filed: 06/03/15907 Date of Service: 06/03/15906 Status: Signed Biomechanical Engineer: Josseline Mera RN (Permit Specialist) [facility]is Regan will accept Krueger back when appropriate. Paperwork on front of chart f or MD signature. Ken Rivera MD - 06/02/2015 10:55 AM PDT Progress Notes by Ken Foster MD at 06/02/15 105 Author: Ken Foster MD Service: Neurosurgery Author Type: Physician Filed: 06/02/15 1057 Date of Service: 06/02/151054 Status: Signed Biomechanical Engineer: Ken Foster MD (Physician) Subjective: POD#4 No [...] Therapy Progress Note by Mere Hardy MA CCC-ROTARY SHEAR CUTTER at 06/01/151625 Author: Mere Hardy MA CCC-ROTARY SHEAR CUTTER Service: (none) Author Type: Speech and Language Patholo gist Filed: 06/01/151625 Date of Service: 06/01/151625 Status: Signed Biomechanical Engineer: Mere Hardy MA CCC-ROTARY SHEAR CUTTER (Speech and Language Pathologist) 06/01/15 160 Swallowing [...] upon palpation;Cou gh - delayed;Spontaneous multiple swallow [place] Presentation Cup;Self Fed Oral WFL Pharyngeal Phase No overt signs or symptoms of aspiration;Delayed swallow initiated;Decreas ed laryngeal elevation upon palpation Puree Presentation Self Fed;Spoon Oral Phase WFL Pharyngeal No overt signs or symptoms of aspiration;Delayed Swallow Dysphagia Mechanically Altered Presentation Spoon;Self Fed Oral Phase Prolonged mastication Pharyngeal Phase Cough - Immediate;Delayed Swallow;Decreased Laryngeal Elevation Recommendations Liquids Consistency Recommendations [place] thick Diet Consistency Recommendation Pureed Recommendations Dysphagia [...] monitoring;Patient/Family education; Assessment for upgrade Dysphagia Goals Grain Mixer Goals Safe/efficient oral intake Pt will have safe/efficient oral intake [place] thick liquids;Dysphagia advanced diet;With max cues Short Term Goals Tolerate liquid consistency;Follow swallow precautions Pt will tolerate tolerate liquid consistency [place] thick liquids;With max supervision;Goa l progressing Pt will follow swallow precautions With mod supervision;Goal progressing onver alem Transaction, Provider Unknown - 06/01/2015 12:40 PM PDT Progress Notes by Fede Bonner at 06/01/15 1240 Author: Fede Bonner Service: (none) Author Type: Filed: 06/01/15 1242 Date of Service: 06/01/151239 Status: Signed Biomechanical Engineer: Fede Bonner () Tony is from [place], but says he lives on the [facility]. Stated he has bee n in the [...] 06/01/15909 Date of Service: 06/01/15907 Status: Signed Biomechanical Engineer: Ken Foster MD (Physician) Subjective: POD#3 Transferred [...] could be returned to his care fac [facility] Wednesday or Wednesday. onversion Transact ion, Provider Unknown - 05/31/2015 12:04 PM PDTFormatting of this note might be different fr om the original. Progress Notes by Hany Templeton RD at 05/31/15 1204 Author: Hany Templeton RD Service: (none) Author Type: Registered Dietitian Filed: 05/31/15 120 Date of Service: 05/31/151203 Status: Signed Biomechanical Engineer: Hany Templeton RD (Registered Dietitian) 05/31/15 0035 Subjective Timepoint Admit (Triggers for dysphagia. ) Pt c/o Pt admitted for seizures, has hx of craniectiomy, is POD # 2R bayfv-[id number]-[id number] cranioplasty, POD # 1 R bone flap [...] dysphagia pureed, NT liquid, house diet per ROTARY SHEAR CUTTER recommend ations. Add magic cups to meal [...] 1929 Date of Service: 05/31/151115 Status: Signed Biomechanical Engineer: Ki Martinez PT (Physical Therapist) 05/31/15 1116 [...] 1306 Date of Service: 05/31/15917 Status: Signed Biomechanical Engineer: Livier Betancur MD (Physician) POD#2 The patient [...] could be returned to his care fac [facility]. onnarcisa Transactio n, Provider Unknown - 05/31/2015 8:55 AM PDT Case Management by TABITHA Sidhu at 05/31/15 0855 Author: TABITHA Sidhu Service: (none) Author Type: Regional Planner Filed: 05/31/15 1438 Date of Service: 05/31/1555 Status: Addendum Biomechanical Engineer: TABITHA Sidhu (Regional Planner) Related Notes: Original Note by TABITHA Sidhu (Regional Planner) filed at 05/31/15 0856 Placed t/c to Dianna at [facility]. Left message requesting a return call as i have no t heard from her since I faxed the referral. Await her return call. Addendum: 1400: Received return call from Debora at [facility]. Pt is accepted for a dmit when he is medically stable. Tabitha Cooley PT - 05/30/2015 3:49 PM PDTFormatting of this note might be different from th e original. Therapy Progress Note by Keiry Weiss PT at 05/30/15 6899 Author: Keiry Weiss PT Service: (none) Author Type: Physical Therapist Filed: 05/30/15 180 Date of Service: 05/30/151548 Status: Signed Biomechanical Engineer: Keiry Weiss, PT (Physical Therapist) 05/30/15 1549 [...] staying at [facility] in [place]. Pt was getti ng agitated with questions and not wanting to respond. Prior Function Level of [place]ushing Assist with functional mobility;Assist with ADLs;Assist with [...] Barriers to Discharge Physical Deficits Impacting Functional [place]ushing;Self-care Deficit s Impacting Functional [place] 05/30/15 1549 PT Last Visit PT Received [...] Barriers to Discharge Physical Deficits Impacting Functional [place];Self-care Deficit s Impacting Functional [place] onversion Transa ction, Provider Unknown - 05/30/2015 3:10 PM PDT Therapy Progress Note by Carmela Wilcox MS CCC-ROTARY SHEAR CUTTER at 05/30/15 1569 Author: Carmela Wilcox MS CCC-ROTARY SHEAR CUTTER Service: (none) Author Type: Speech and Business Enterprise Officer ologist Filed: 05/30/15 4440 Date of Service: 09/10/15 1510 Status: Signed Biomechanical Engineer: Carmela Wilcox MS CCC-ROTARY SHEAR CUTTER (Speech and Language Pathologist) 05/30/15 1500 Swallowing [...] Pharyngeal Phase Delayed swallow initiated;Cough - delayed [place] Presentation Cup;Self Fed Oral Increased Anterior to [...] Cough - Delayed Recommendations Liquids Consistency Recommendations [place] thick;Ice chips for oral comfort Diet Consistency [...] education;Assessment for upgr khadijah;Swallow strategies Dysphagia Goals Snf Goals Safe/efficient oral intake Pt will have safe/efficient oral intake [place] thick liquids;Dysphagia advanced diet;With max cues Short Term Goals Tolerate liquid consistency;Follow swallow precautions Pt will tolerate tolerate liquid consistency [place] thick liquids;With max supervision Pt will follow swallow precautions With mod supervision;New/revised goal RDStLivier bustamante - 05/30/2015 8:48 AM PDTFormatting of this note might be different from the or iginal. Progress Notes by Livier Betancur MD at 05/30/15847 Author: Livier Betancur MD Service: Neurosurgery Author Type: Physician Filed: 05/30/15 1230 Date of Service: 05/30/15847 Status: Signed Biomechanical Engineer: Livier Betancur MD (Physician) POD#1 The patient [...] Mendoza at 05/30/15639 Author: JENNIFER Mendoza Service: Gasoline Tractor Operator Author Type: Nurse Practitioner Filed: 05/30/15 1123 Date of Service: 05/30/15639 Status: Signed Biomechanical Engineer: JENNIFER Mendoza (Nurse Practitioner) [facility] Service: Gasoline Tractor Operator Progress Note [facility] 54 [facility] [...] 142 Date of Service: 05/29/151420 Status: Signed Biomechanical Engineer: Livier Betancur MD (Physician) ICU nurse states the patient seems more lethargic. I will plan a return to the OR now to e valuate the pressure present beneath the right-sided cranial flap. onversion Transactio n, Provider Unknown - 05/29/2015 1:24 PM PDT Case Management by TABITHA Sidhu at 05/29/15 1326 Author: TABITHA Sidhu Service: (none) Author Type: Regional Planner Filed: 05/29/15 1329 Date of Service: 05/29/151323 Status: Signed Biomechanical Engineer: TABITHA Sidhu (Regional Planner) 05/29/15 1324 Discharge Planning Evaluation Admitting Diagnosis Right fnedud-uaorziq-[id number] cranioplasty Readmission Other (comment) Living Arrangements Other (Comment) (snf) Support Systems Parent Type of Residence [facility]CI facility ([facility]) Independent with ADL's No-comment Independent with Mobility No-comment (require w/c) Home Care Services No Mental Status Other (comment) (just starting to follow commands after surgery) Prior functional status Previously at [facility] and [facility]. Richelle is at [facility] and mother states that plan is to retun there. Anticipated Discharge Plan Plan communicated to patient/family Yes Resources Financial concerns No Transportation issues No Patient/Family concerns No Prescription Plan Yes Anticipated Disposition Facility Type [facility]CI facility Senior Care Facility Other (comment) ([facility]) Met with: pt's mother Teressa who tells me she is the healthcare decision-maker for pt and discussed discharge planning, Pt is a 54 y.o., male s/p cranioplasty. Pt has been at [facility] for the last 2-3 months per mother. Plan is for pt to live with his mother donal ut he requires significant care at this time. E-faxed referral to Dianna at [facility]. Patient's PCP is: [facility] Patient's insurance:[place] Medicaid - [place] Coverage concerns: Medication coverage/concerns: Nahun'eliseo Bedside Delivery: Community resources utilized / needed: Assistance in transportation: may need ambulance transfer back to [place] Identification of any specific education / training: Barriers to Discharge / Alternative housing needed: Anticipated DCP: Back to [facility]. Referral faxed to [facility]. HAYES STEEN Livier Briseno - 05/29/2015 12:37 PM PDTFormatting of this note might be different from the or iginal. Progress Notes by Livier Betancur MD at 05/29/15 9420 Author: Livier Betancur MD Service: Neurosurgery Author Type: Physician Filed: 05/31/15 3362 Date of Service: 05/29/15 3840 Status: Addendum Biomechanical Engineer: Livier Betancur MD (Physician) Related Notes: Original Note by Livier Betancur MD (Physician) filed at 05/29/15 3087 EXAM: Patient does nod his head yes [...] Galan Service: Wound/Ostomy Care Author Type: Nurse Publicity Director Filed: 05/29/15 1220 Date of Service: 05/29/151218 Status: Signed Biomechanical Engineer: Pelon Galan (Nurse Publicity Director) Patient seen today for low Bon score. [...] 05/29/151209 Date of Service: 05/29/151209 Status: Signed Biomechanical Engineer: Debra Fitzpatrick RPH (Pharmacist) Renal Dosing Monitoring: [...] 1.30 mg/dL Final Comment: Testing performed at [facility], [address] [place] [address] Creatinine clearance cannot be calculated (Patient's most [...] 1003 Date of Service: 05/29/1554 Status: Signed Biomechanical Engineer: Livier Betancur MD (Physician) POD#1 The patient [...] 05/28/151119 Date of Service: 05/28/151119 Status: Signed Biomechanical Engineer: Joyce Hernandez RPH (Pharmacist) Clinical Pharmacy Note: Renal Monitoring Tony Mcguire 54 y.o. male Ht Readings from Last 1 Encounters: 05/28/15 1.778 m (5' 10") Wt Readings from Last 1 Encounters: 05/28/15 78.9 kg (173 lb 15.1 oz) CREATININE Date Value Ref Range Status 11/26/2014 0.62* 0.70 - 1.30 mg/dL Final Comment: Testing performed at [facility], [address] [place] [address] Creatinine clearance cannot be calculated (Patient's most recent sCr result is older than t he maximum 3 days allowed.) Pharmacy dosing for renal function per Dr. Rios. Currently, there are no medications needing to be adjusted. Pharmacy will continue to monit or for changes in medication orders and in renal function and adjust accordingly. Joyce Hernandez [facility] 05/28/2015 11:20 AM onver alem Transaction, Provider Unknown - 05/28/2015 11:17 AM PDT Nurse Progress Note by Anna Gates RN at 05/28/15 1117 Author: Anna Gates RN Service: (none) Author Type: Registered Nurse Filed: 05/28/15 1118 Date of Service: 05/28/15 1117 Status: Signed Biomechanical Engineer: Anna Gates RN (Registered Nurse) Report from Shayna at [facility] states that patient has been NPO [...] Date of Service: 05/28/15 1041 Status: Signed Biomechanical Engineer: Anna Gates RN (Registered Nurse) Lamine from the lab at [facility] to fax MRSA PCR results and [...] EXTERNAL | | | | performed at [facility];888 | mmol/L | LAB | | | | [facility];[place], [place] | | | | | | [address] | | | | + + + [...] EXTERNAL | | | | performed at [facility] | | LAB | | | | [address];[place], [place] | | | | | | [address] | | | | + + + [...] EXTERNAL | | | | performed at [facility], [address] | K/uL | LAB | | | | [address], | | | | | | [place] [address] | | | | + + + + + + | RED CELL | 3.20 (L)Comment: Testing | 4.20 - 5.70 | EXTERNAL | | | COUNT | performed at [facility], [address] | M/uL | LAB | | | | [address], | | | | | | [place] [address] | | | | + + + + + + | Hgb | 8.9 (L)Comment: Testing | 13.2 - 17.0 | EXTERNAL | | | | performed at [facility], [address] | g/dL | LAB | | | | [address], | | | | | | [place] [address] | | | | + + + + + + | Hematocrit, | 27.2 (L)Comment: Testing | 39.0 - 50.0 % | EXTERNAL | | | POC | performed at [facility], [address] | | LAB | | | | [address], | | | | | | [place] [address] | | | | + + + + + + | MCV | 85.1Comment: Testing | 80.0 - 100.0 fl | EXTERNAL | | | | performed at [facility], [address] | | LAB | | | | [address], | | | | | | [place] [address] | | | | + + + + + + | MCH | 27.7Comment: Testing | 27.0 - 34.0 pg | EXTERNAL | | | | performed at [facility], [address] | | LAB | | | [address], | | | | | | [place] [address] | | | | + + + + + + | MCHC | 32.6Comment: Testing | 32.0 - 35.5 | EXTERNAL | | | | performed at [facility], [address] | g/dL | LAB | | | | [address], | | | | | | [place] [address] | | | | + + + + + + | RDW-CV | 49.0Comment: Testing | 37 - 53 fl | EXTERNAL | | | | performed at [facility], [address] | | LAB | | | | [address], | | | | | | [place] [address] | | | | + + [...] | | | | | [place] [address] | | | | + + + + + + | Differentia | AUTOMATEDComment: | | EXTERNAL | | | l Type | Testing performed at | | LAB | | | | [facility], [address] | | | | | | [place] | | | | | | [address] | | | | + + + + + + | % Segmented | 70.80Comment: Testing | % | EXTERNAL | | | | performed at [facility], [address] | | LAB | | | Neutrophils | [address], | | | | | | [place] [address] | | | | + + + + + + | % | 19.56Comment: Testing | % | EXTERNAL | | | Lymphocytes | performed at [facility], [address] | | LAB | | | | [address], | | | | | | [place] [address] | | | | + + + + + + | % Monocytes | 8.15Comment: Testing | % | EXTERNAL | | | | performed at [facility], [address] | | LAB | | | | [address], | | | | | | [place] [address] | | | | + + + + + + | % | 1.12Comment: Testing | % | EXTERNAL | | | Eosinophils | performed at [facility], [address] | | LAB | | | | [address], | | | | | | [place] [address] | | | | + + + + + + | % Basophils | 0.37Comment: Testing | % | EXTERNAL | | | | performed at [facility], [address] | | LAB | | | | [address], | | | | | | [place] [address] | | | | + + + + + + | Absolute | 4.40Comment: Testing | 1.90 - 7.40 | EXTERNAL | | | Segmented | performed at [facility], [address] | K/uL | LAB | | | Neutrophils | [address], | | | | | | [place] [address] | | | | + + + + + + | Absolute | 1.22Comment: Testing | 1.00 - 3.90 | EXTERNAL | | | Lymphocytes | performed at [facility], [address] | K/uL | LAB | | | | [address], | | | | | | [place] [address] | | | | + + + + + + | Absolute | 0.51Comment: Testing | 0.00 - 0.80 | EXTERNAL | | | Monocytes | performed at [facility], [address] | K/uL | LAB | | | | [address], | | | | | | [place] [address] | | | | + + + + + + | Absolute | 0.07Comment: Testing | 0.00 - 0.50 | EXTERNAL | | | Eosinophils | performed at [facility], [address] | K/uL | LAB | | | [address], | | | | | | [place] [address] | | | | + + + + + + | Absolute | 0.02Comment: Testing | 0.00 - 0.10 | EXTERNAL | | | Basophils | performed at [facility], [address] | K/uL | LAB | | | | [address], | | | | | | [place] [address] | | | | + + + [...] EXTERNAL | | | | performed at [facility], [address] | | LAB | | | | [address], | | | | | | [place] [address] | | | | + + + [...] EXTERNAL | | | | performed at [facility], [address] | | LAB | | | | [address], | | | | | | [place] [address] | | | | + + + [...] | LAB | | | | [address], | | | | | | [place] [address] | | | | + + + + + + | K | 3.8Comment: Testing | 3.5 - 4.9 | EXTERNAL | | | | performed at [facility], [address] | mmol/L | LAB | | | | [address], | | | | | | [place] [address] | | | | + + + + + + | Cl | 106Comment: Testing | 99 - 109 mmol/L | EXTERNAL | | | | performed at [facility], [address] | | LAB | | | | [address], | | | | | | [place] [address] | | | | + + + + + + | CO2 | 27Comment: Testing | 23 - 32 mmol/L | EXTERNAL | | | | performed at [facility], [address] | | LAB | | | | [address], | | | | | | [place] [address] | | | | + + + + + + | Anion Gap | 7Comment: Testing | 5 - 20 mmol/L | EXTERNAL | | | | performed at [facility], [address] | | LAB | | | | [address], | | | | | | [place] [address] | | | | + + + + + + | Glucose, | 99Comment: Testing | 65 - 99 mg/dL | EXTERNAL | | | Fasting | performed at [facility], [address] | | LAB | | | | [address], | | | | | | [place] [address] | | | | + + + + + + | BUN | 4 (L)Comment: Testing | 8 - 25 mg/dL | EXTERNAL | | | | performed at [facility], [address] | | LAB | | | | [address], | | | | | | [place] [address] | | | | + + + + + + | Creatinine | 0.48 (L)Comment: Testing | 0.70 - 1.30 | EXTERNAL | | | | performed at [facility], [address] | mg/dL | LAB | | | | [address], | | | | | | [place] [address] | | | | + + + + + + | BUN/Creatin | 8Comment: Testing | | EXTERNAL | | | ine Ratio | performed at [facility], [address] | | LAB | | | | [address], | | | | | | [place] [address] | | | | + + + + + + | Calcium | 8.3 (L)Comment: Testing | 8.5 - 10.5 | EXTERNAL | | | | performed at [facility], [address] | mg/dL | LAB | | | | [address] [facility], | | | | | | [place] [address] | | | | + + + [...] | | | | | | at [facility], [address] | | | | | | [facility], | | | | | | [place] [address] | | | | + + + + + + + + | Specimen | + + | Blood specimen | | (specimen) | + + + +---------+ + + | Performing | Address | City/State/[facility] | Phone Number | | [...] EXTERNAL | | | | performed at [facility];[address] | mmol/L | LAB | | | | [address];[place] | | | | | | [address] | | | | + + + [...] EXTERNAL | | | | performed at [facility];[address] | | LAB | | | | [address];[place] | | | | | | [address] | | | | + + + [...] EXTERNAL | | | | performed at [facility] | | LAB | | | | [address];[place] | | | | | | [address] | | | | + + + [...] drain | | | placement. 2. Improved sqqec-ty-kipe midline shift. RADIA | | | Electronically signed by Joshua Rivera MD on May 30 2015 10:35AM | | | Referring Provider Line: [phone] ID: [id number] | | + + + [...] has improved. There is | | | gaoxk-zt-swot midline shift measuring at least 5 mm [...] seen. Intracranial pneumocephalus has improved. There is vlkdg-jk-acng midline shift | | measuring at least [...] interval subdural drain placement.2. | | Improved sheag-hw-srbc midline shift. RADIA Electronically signed by Joshua Rivera MD | | on May 30 2015 10:35AM Referring Provider Line: [phone] ID: [id number] | | | |Sinuses: Paranasal [...] molina bdural drain placement. | |2. Improved njvpg-px-vfll midline shift. | | | |RADIA | | | | Electronically signed by Joshua Rivera MD on May 30 2015 10:35AM Referring Provider Line: [phone] ID: [id number] | + + PTT (05/30/2015 2:59 AM PDT) + + + + + + | Component | Value | Ref Range | Performed | Pathologist | | | | | At | Signature | + + + + + + | aPTT, | 33 (H)Comment: Testing | 23 - 32 seconds | EXTERNAL | | | Patient | performed at [facility];[address] | | LAB | | | | [address];[place], [place] | | | | | | [address] | | | | + + + [...] | | | | | performed at [facility];[address] | | | | | | [address] [facility];[place], [place] | | | | | | [address] | | | | + + + [...] EXTERNAL | | | | performed at [facility], [address] | K/uL | LAB | | | | [address], | | | | | | [place] [address] | | | | + + + + + + | RED CELL | 3.24 (L)Comment: Testing | 4.20 - 5.70 | EXTERNAL | | | COUNT | performed at [facility], [address] | M/uL | LAB | | | | [address], | | | | | | [place] [address] | | | | + + + + + + | Hgb | 8.8 (L)Comment: Testing | 13.2 - 17.0 | EXTERNAL | | | | performed at [facility], [address] | g/dL | LAB | | | | [address], | | | | | | [place] [address] | | | | + + + + + + | Hematocrit, | 27.5 (L)Comment: Testing | 39.0 - 50.0 % | EXTERNAL | | | POC | performed at [facility], [address] | | LAB | | | | [address], | | | | | | [place] [address] | | | | + + + + + + | MCV | 85.1Comment: Testing | 80.0 - 100.0 fl | EXTERNAL | | | | performed at [facility], [address] | | LAB | | | | [address], | | | | | | [place] [address] | | | | + + + + + + | MCH | 27.3Comment: Testing | 27.0 - 34.0 pg | EXTERNAL | | | | performed at [facility], [address] | | LAB | | | | [address], | | | | | | [place] [address] | | | | + + + + + + | MCHC | 32.1Comment: Testing | 32.0 - 35.5 | EXTERNAL | | | | performed at [facility], [address] | g/dL | LAB | | | | [address], | | | | | | [place] [address] | | | | + + + + + + | RDW-CV | 47.3Comment: Testing | 37 - 53 fl | EXTERNAL | | | | performed at [facility], [address] | | LAB | | | | [address], | | | | | | [place] [address] | | | | + + + + + + | Platelet | 117 (L)Comment: Testing | 150 - 400 K/uL | EXTERNAL | | | Count | performed at [facility], [address] | | LAB | | | Plasma | [address], | | | | | | [place] [address] | | | | + + + + + + | MPV | 9.7Comment: Testing | fl | EXTERNAL | | | | performed at [facility], [address] | | LAB | | | | [address], | | | | | | [place] [address] | | | | + + + [...] | | | | | [place] [address] | | | | + + + + + + | % | 16.63Comment: Testing | % | EXTERNAL | | | Lymphocytes | performed at [facility], [address] | | LAB | | | | [address], | | | | | | [place] [address] | | | | + + + + + + | % Monocytes | 10.39Comment: Testing | % | EXTERNAL | | | | performed at [facility], [address] | | LAB | | | | [address], | | | | | | [place] [address] | | | | + + + + + + | % | 0.31Comment: Testing | % | EXTERNAL | | | Eosinophils | performed at [facility], [address] | | LAB | | | | [address], | | | | | | [place] [address] | | | | + + + + + + | % Basophils | 0.28Comment: Testing | % | EXTERNAL | | | | performed at [facility], [address] | | LAB | | | | [address], | | | | | | [place] [address] | | | | + + + + + + | Absolute | 5.32Comment: Testing | 1.90 - 7.40 | EXTERNAL | | | Segmented | performed at [facility], [address] | K/uL | LAB | | | Neutrophils | [address], | | | | | | [place] [address] | | | | + + + + + + | Absolute | 1.22Comment: Testing | 1.00 - 3.90 | EXTERNAL | | | Lymphocytes | performed at [facility], [address] | K/uL | LAB | | | | [address], | | | | | | [place] [address] | | | | + + + + + + | Absolute | 0.76Comment: Testing | 0.00 - 0.80 | EXTERNAL | | | Monocytes | performed at [facility], [address] | K/uL | LAB | | | | [address], | | | | | | [place] [address] | | | | + + + + + + | Absolute | 0.02Comment: Testing | 0.00 - 0.50 | EXTERNAL | | | Eosinophils | performed at [facility], [address] | K/uL | LAB | | | | [address], | | | | | | [place] [address] | | | | + + + + + + | Absolute | 0.02Comment: Testing | 0.00 - 0.10 | EXTERNAL | | | Basophils | performed at [facility], [address] | K/uL | LAB | | | | [address], | | | | | | [place] [address] | | | | + + + [...] EXTERNAL | | | | performed at [facility], [address] | | LAB | | | | [address], | | | | | | [place] [address] | | | | + + + [...] EXTERNAL | | | | performed at [facility], [address] | | LAB | | | | [address], | | | | | | [place] [address] | | | | + + + [...] | | | | | [place] [address] | | | | + + + + + + | K | 3.7Comment: Testing | 3.5 - 4.9 | EXTERNAL | | | | performed at [facility], [address] | mmol/L | LAB | | | | [address], | | | | | | [place] [address] | | | | + + + + + + | Cl | 106Comment: Testing | 99 - 109 mmol/L | EXTERNAL | | | | performed at [facility], [address] | | LAB | | | | [address], | | | | | | [place] [address] | | | | + + + + + + | CO2 | 27Comment: Testing | 23 - 32 mmol/L | EXTERNAL | | | | performed at [facility], [address] | | LAB | | | | [address], | | | | | | [place] [address] | | | | + + + + + + | Anion Gap | 6Comment: Testing | 5 - 20 mmol/L | EXTERNAL | | | | performed at [facility], [address] | | LAB | | | | [address], | | | | | | [place], [place] [address] | | | | + + + + + + | Glucose, | 106 (H)Comment: Testing | 65 - 99 mg/dL | EXTERNAL | | | Fasting | performed at [facility], [address] | | LAB | | | | [address], | | | | | | [place], [place] [address] | | | | + + + + + + | BUN | 5 (L)Comment: Testing | 8 - 25 mg/dL | EXTERNAL | | | | performed at [facility], [address] | | LAB | | | | [address], | | | | | | [place] [address] | | | | + + + + + + | Creatinine | 0.50 (L)Comment: Testing | 0.70 - 1.30 | EXTERNAL | | | | performed at [facility], [address] | mg/dL | LAB | | | | [address], | | | | | | [place] [address] | | | | + + + + + + | BUN/Creatin | 10Comment: Testing | | EXTERNAL | | | ine Ratio | performed at [facility], [address] | | LAB | | | | [facility], | | | | | | [place] [address] | | | | + + + + + + | Calcium | 8.1 (L)Comment: Testing | 8.5 - 10.5 | EXTERNAL | | | | performed at [facility], [address] | mg/dL | LAB | | | | [address], | | | | | | [place] [address] | | | | + + + [...] | | | | | [place] [address] | | | | + + + [...] | | | Count | performed at [facility];[address] | | LAB | | | Plasma | [address];[place] | | | | | | [address] | | | | + + + [...] | | | Patient | performed at [facility];[address] | | LAB | | | | [address];[place], [place] | | | | | | [address] [...] | | | | | performed at [facility] | | | | | | [address];[place], [place] | | | | | | [address] | | | | + + + [...] EXTERNAL | | | | performed at [facility];[address] | | LAB | | | | [address];[place] | | | | | | [address] | | | | + + + [...] | | | | | performed at [facility];[address] | | | | | | [facility];[place], [place] | | | | | | [address] | | | | + + + [...] | | LAB | | | | [facility];[address];[place] [address] | | | | + + + + + + | PCO2 ART | 37Comment: Testing | 35 - 45 mmHg | EXTERNAL | | | | performed at [facility];[address] | | LAB | | | | [address];[place] | | | | | | [address] | | | | + + + + + + | PO2 ART | 208 (H)Comment: Testing | 80 - 105 mmHg | EXTERNAL | | | | performed at [facility];[address] | | LAB | | | | [address];[place] | | | | | | [address] | | | | + + + + + + | HCO3 ART | 26Comment: Testing | 22 - 26 mmol/L | EXTERNAL | | | | performed at [facility];[address] | | LAB | | | | [address];[place] | | | | | | [address] | | | | + + + + + + | POC | 27Comment: Testing | 23 - 27 mEq/L | EXTERNAL | | | APPEARANCE | performed at [facility];[address] | | LAB | | | UA | [address];[place] | | | | | | [address] | | | | + + + + + + | Base | 2Comment: Testing | 0 - 3 mEq/L | EXTERNAL | | | Excess, | performed at [facility];[address] | | LAB | | | Arterial | [address];[place] | | | | | | [address] | | | | + + + + + + | O2 SAT ART | 100 (H)Comment: Testing | 95 - 98 % | EXTERNAL | | | | performed at [facility];[address] | | LAB | | | | [address];[place] | | | | | | [address] | | | | + + + + + + | Sodium, POC | 134 (L)Comment: Testing | 135 - 145 mEq/L | EXTERNAL | | | | performed at [facility];[address] | | LAB | | | | [address];[place] | | | | | | [address] | | | | + + + + + + | Potassium, | 3.6Comment: Testing | 3.5 - 5.0 mEq/L | EXTERNAL | | | POC | performed at [facility];[address] | | LAB | | | | [address];[place] | | | | | | [address] | | | | + + + + + + | Ionized | 1.09 (L)Comment: Testing | 1.12 - 1.32 | EXTERNAL | | | Calcium, | performed at [facility];888 | mmol/L | LAB | | | POC | [address];[place] | | | | | | [address] | | | | + + + + + + | Glucose, | 191 (H)Comment: Testing | 65 - 99 mg/dL | EXTERNAL | | | POC | performed at [facility];[address] | | LAB | | | | [address];[place] | | | | | | [address] | | | | + + + + + + | Hematocrit, | 35 (L)Comment: Testing | 40.0 - 50.0 % | EXTERNAL | | | POC | performed at [facility];[address] | | LAB | | | | [address];[place] | | | | | | [address] | | | | + + + + + + | Hemoglobin, | 11.9 (L)Comment: Testing | 13.7 - 16.7 | EXTERNAL | | | POC | performed at [facility];[address] | g/dL | LAB | | | | [address];[place] | | | | | | [address] | | | | + + + [...] EXTERNAL | | | | performed at [facility], [address] | K/uL | LAB | | | | [address], | | | | | | [place] [address] | | | | + + + + + + | RED CELL | 4.00 (L)Comment: Testing | 4.20 - 5.70 | EXTERNAL | | | COUNT | performed at [facility], [address] | M/uL | LAB | | | | [address], | | | | | | [place] [address] | | | | + + + + + + | Hgb | 11.0 (L)Comment: Testing | 13.2 - 17.0 | EXTERNAL | | | | performed at [facility], [address] | g/dL | LAB | | | | [address], | | | | | | [place] [address] | | | | + + + + + + | Hematocrit, | 33.7 (L)Comment: Testing | 39.0 - 50.0 % | EXTERNAL | | | POC | performed at [facility], [address] | | LAB | | | | [address], | | | | | | [place] [address] | | | | + + + + + + | MCV | 84.3Comment: Testing | 80.0 - 100.0 fl | EXTERNAL | | | | performed at [facility], [address] | | LAB | | | | [address], | | | | | | [place] [address] | | | | + + + + + + | MCH | 27.6Comment: Testing | 27.0 - 34.0 pg | EXTERNAL | | | | performed at [facility], [address] | | LAB | | | | [address], | | | | | | [place] [address] | | | | + + + + + + | MCHC | 32.8Comment: Testing | 32.0 - 35.5 | EXTERNAL | | | | performed at [facility], [address] | g/dL | LAB | | | | [address], | | | | | | [place] [address] | | | | + + + + + + | RDW-CV | 45.1Comment: Testing | 37 - 53 fl | EXTERNAL | | | | performed at [facility], [address] | | LAB | | | | [address], | | | | | | [place] [address] | | | | + + + + + + | Platelet | 135 (L)Comment: Testing | 150 - 400 K/uL | EXTERNAL | | | Count | performed at [facility], [address] | | LAB | | | Plasma | [address], | | | | | | [place] [address] | | | | + + + + + + | MPV | 9.2Comment: Testing | fl | EXTERNAL | | | | performed at [facility], [address] | | LAB | | | | [address], | | | | | | [place] [address] | | | | + + + + + + | Differentia | AUTOMATEDComment: | | EXTERNAL | | | l Type | Testing performed at | | LAB | | | | [facility], [address] | | | | | | [place] | | | | | | [address] | | | | + + + + + + | % Segmented | 75.95Comment: Testing | % | EXTERNAL | | | | performed at [facility], [address] | | LAB | | | Neutrophils | [address], | | | | | | [place] [address] | | | | + + + + + + | % | 14.93Comment: Testing | % | EXTERNAL | | | Lymphocytes | performed at [facility], [address] | | LAB | | | | [address], | | | | | | [place] [address] | | | | + + + + + + | % Monocytes | 8.68Comment: Testing | % | EXTERNAL | | | | performed at [facility], [address] | | LAB | | | | [address], | | | | | | [place] [address] | | | | + + + + + + | % | 0.25Comment: Testing | % | EXTERNAL | | | Eosinophils | performed at [facility], [address] | | LAB | | | | [address], | | | | | | [place] [address] | | | | + + + + + + | % Basophils | 0.19Comment: Testing | % | EXTERNAL | | | | performed at [facility], [address] | | LAB | | | | [address], | | | | | | [place] [address] | | | | + + + + + + | Absolute | 6.90Comment: Testing | 1.90 - 7.40 | EXTERNAL | | | Segmented | performed at [facility], [address] | K/uL | LAB | | | Neutrophils | [address], | | | | | | [place] [address] | | | | + + + + + + | Absolute | 1.36Comment: Testing | 1.00 - 3.90 | EXTERNAL | | | Lymphocytes | performed at [facility], [address] | K/uL | LAB | | | | [address], | | | | | | [place] [address] | | | | + + + + + + | Absolute | 0.79Comment: Testing | 0.00 - 0.80 | EXTERNAL | | | Monocytes | performed at [facility], [address] | K/uL | LAB | | | | [address], | | | | | | [place] [address] | | | | + + + + + + | Absolute | 0.02Comment: Testing | 0.00 - 0.50 | EXTERNAL | | | Eosinophils | performed at [facility], [address] | K/uL | LAB | | | | [address], | | | | | | [place] [address] | | | | + + + + + + | Absolute | 0.02Comment: Testing | 0.00 - 0.10 | EXTERNAL | | | Basophils | performed at [facility], [address] | K/uL | LAB | | | | [address], | | | | | | [place] [address] | | | | + + + [...] | | | | | [place] [address] | | | | + + + + + + | K | 4.1Comment: Testing | 3.5 - 4.9 | EXTERNAL | | | | performed at [facility], [address] | mmol/L | LAB | | | | [address], | | | | | | [place] [address] | | | | + + + + + + | Cl | 102Comment: Testing | 99 - 109 mmol/L | EXTERNAL | | | | performed at [facility], [address] | | LAB | | | | [address], | | | | | | [place] [address] | | | | + + + + + + | CO2 | 26Comment: Testing | 23 - 32 mmol/L | EXTERNAL | | | | performed at [facility], [address] | | LAB | | | | [address], | | | | | | [place] [address] | | | | + + + + + + | Anion Gap | 10Comment: Testing | 5 - 20 mmol/L | EXTERNAL | | | | performed at [facility], [address] | | LAB | | | | [address], | | | | | | [place] [address] | | | | + + + + + + | Glucose, | 109 (H)Comment: Testing | 65 - 99 mg/dL | EXTERNAL | | | Fasting | performed at [facility], [address] | | LAB | | | | [address], | | | | | | [place] [address] | | | | + + + + + + | BUN | 7 (L)Comment: Testing | 8 - 25 mg/dL | EXTERNAL | | | | performed at [facility], [address] | | LAB | | | | [address], | | | | | | [place] [address] | | | | + + + + + + | Creatinine | 0.62 (L)Comment: Testing | 0.70 - 1.30 | EXTERNAL | | | | performed at [facility], [address] | mg/dL | LAB | | | | [address], | | | | | | [place] [address] | | | | + + + + + + | BUN/Creatin | 11Comment: Testing | | EXTERNAL | | | ine Ratio | performed at [facility], [address] | | LAB | | | | [address], | | | | | | [place] [address] | | | | + + + + + + | Calcium | 8.8Comment: Testing | 8.5 - 10.5 | EXTERNAL | | | | performed at [facility], [address] | mg/dL | LAB | | | | [address], | | | | | | [place] [address] | | | | + + [...] | | | | | | [place] [address] | | | | + + + [...] | | | | | [place] [address] | | | | + + + + + + | Clarity | CLEARComment: Testing | | EXTERNAL | | | | performed at [facility], [address] | | LAB | | | | [address], | | | | | | [place] [address] | | | | + + + + + + | Specific | 1.029Comment: Testing | 1.002 - 1.030 | EXTERNAL | | | [place] | performed at [facility], [address] | | LAB | | | | [address], | | | | | | [place] [address] | | | | + + + + + + | Leukocyte | NEGATIVEComment: Testing | | EXTERNAL | | | Esterase, | performed at [facility], [address] | | LAB | | | Urine | [address], | | | | | | [place] [address] | | | | + + + + + + | Nitrite, | NEGATIVEComment: Testing | | EXTERNAL | | | Urine | performed at [facility], [address] | | LAB | | | | [address], | | | | | | [place] [address] | | | | + + + + + + | Urobilinoge | 1.0Comment: Testing | mg/dL | EXTERNAL | | | n, Urine | performed at [facility], [address] | | LAB | | | | [address], | | | | | | [place] [address] | | | | + + + + + + | Protein, | NEGATIVEComment: Testing | mg/dL | EXTERNAL | | | Urine | performed at [facility], [address] | | LAB | | | | [address], | | | | | | [place] [address] | | | | + + + + + + | pH, Urine | 5.0Comment: Testing | 5.0 - 8.0 | EXTERNAL | | | | performed at [facility], [address] | | LAB | | | | [address], | | | | | | [place] [address] | | | | + + + + + + | Blood, | NEGATIVEComment: Testing | | EXTERNAL | | | Urine | performed at [facility], [address] | | LAB | | | | [address], | | | | | | [place] [address] | | | | + + + + + + | Ketones | 40 (A)Comment: Testing | mg/dL | EXTERNAL | | | | performed at [facility], [address] | | LAB | | | | [address], | | | | | | [place] [address] | | | | + + + + + + | Bilirubin, | NEGATIVEComment: Testing | | EXTERNAL | | | Urine | performed at [facility], [address] | | LAB | | | | [address], | | | | | | [place] [address] | | | | + + + + + + | Glucose, | NEGATIVEComment: Testing | mg/dL | EXTERNAL | | | Urine | performed at [facility], [address] | | LAB | | | | [address], | | | | | | [place] [address] | | | | + + + [...] EXTERNAL LAB | | Testing performed at [facility];[address] [place] [address];[place] [address] MRSA PCR | | | NEGATIVE Testing performed at | | | [address];[place] [address] | | + + + + +---------+ [...] ISOLATED | | | Testing performed at [facility], [address] | | | [place] [address] | | + + + + +---------+ [...] GROWTH | | | Testing performed at [facility], [address], | | | [place] [address] | | + + + + +---------+ [...] LAB | | | | Blvd;[place] [id number] | | | | + + + + + + | Antibody | NEGATIVE | | EXTERNAL | | | Screen | | | LAB | | + + + + + + | Antibody | Testing performed at | | EXTERNAL | | | Screen | [facility];[address] | | LAB | | | | [address];[place] [address] | | | | + + + + + + | BB BAND | [id number] | | EXTERNAL | | | | | | LAB | | + + + + + + | BB BAND | Testing performed at | | EXTERNAL | | | | [facility];[address] | | LAB | | | [address];[place] [address] | | | | + + + [...]
--- OUTSIDE RECORDS SUMMARY | ~2019-08-24 | XMS | Encounter Summary ---
Demographics + + + | Address | [address] | | | [place] [address] | + + + | Home Phone [...] | Author | [facility] | | | and Olegarioana | + + + | Organization | [facility] | | | and [...] Team Providers + +------+ + | Care Land Planner Name | Role | Phone | + +------+ + PCP | Unavailable | + +------+ + Encounter Details +--------+ + + + + | Date | Type | Department | Care Team | Description | +--------+ + + + + | 03/12/ | Hospital | [facility] | Conversion | Pain | | 2015 | Encounter | CONVERSION [address] | Transaction, | | | | | [address] | Provider Unknown | | | | | [place], [place] | [phone] | | | | | [address] | | | | | | [phone] | | | +--------+ + + + [...]
--- OUTSIDE RECORDS SUMMARY | ~2019-08-24 | XMS | Encounter Summary ---
Demographics + + + | Address | [address] | | | [place] [address] | + + + | Home Phone | | + + + | Preferred Language | Unknown | + + + | Marital Status | Single | + + + | Jew Affiliation | Unknown | + + + [...] Team Providers + +------+ + | Care Chemical Machine Tender Name | Role | Phone | + +------+ + PCP | Unavailable | + +------+ + Encounter Details +--------+ + + + + | Date | Type | Department | Care Team | Description | +--------+ + + + + | 12/27/ | Abstract | [facility] | Azeem Dietrich | | | 2011 | | [place] [phone] | MD [address] | | | | | [address] | [place], [place] | | | | | Mailcode: [id number] | [phone] | | | | | [facility] | [phone] | | | | | and [address], | | | | | | [address] | | | | | | [place], [place] | | | | | | [address] | | | | | | [phone] | | | +--------+ + + + [...]
--- OUTSIDE RECORDS SUMMARY | ~2019-08-24 | XMS | Encounter Summary ---
Demographics + + + | Address | [address] | | | [place] [address] | + + + | Home Phone | | + + + | Preferred Language | Unknown | + + + | Marital Status | Single | + + + | Scientologist Affiliation [...] Team Providers + +------+ + | Care [facility] Name | Role | Phone | + +------+ + PCP | Unavailable | + +------+ + Encounter Details +--------+ + + + + | Date | Type | Department | Care Team | Description | +--------+ + + + + | 12/27/ | Abstract | [facility] | Azeem Dietrich | | | 2011 | | [place] [phone] | MD [address] | | | | | [address] | [place], [place] | | | | | Mailcode: [id number] | [address] | | | | | [facility] | [phone] | | | | | and [address], | | | | | | [address] | | | | | | [place], [place] | | | | | | [address] | | | | | | [phone] | | | +--------+ + + + [...]
--- OUTSIDE RECORDS SUMMARY | ~2019-08-24 | XMS | Encounter Summary ---
Demographics + + + | Address | [address] | | | [place] [address] | + + + | Home Phone [...] Team Providers + +------+ + | Care Tray Worker Name | Role | Phone | [...] + + | 10/01/ | Documentati | Transplant | Clinic, Liver | Liver Transplant | | 2009 | on | Coordinators [id number] | Transplant | Referral (Intake) | | | | [address] | | | | | | [place], [place] | | | | | | [address] | | | | | | [phone] | | | +--------+ + + + [...]
--- OUTSIDE RECORDS SUMMARY | ~2019-08-24 | XMS | Encounter Summary ---
Demographics + + + | Address | [address] | | | [place] [address] | + + + | Home Phone [...] Providers + +------+ + | Care Inspector Hairspring Truing Name | Role | Phone | + [...] + + | 12/03/ | Documentati | Transplant | Kennedi Doyle | Medical Records | | 2009 | on | Coordinators [address] Jaylene Light, RN [address] | Review (requested | | | | [place] [facility] | [facility] [address] | from Dr. Ennis's | | | | [place], [place] | [place], [place] | office) | | | | [address] | [address] | | | | | [phone] | | | +--------+ + + + [...]
--- OUTSIDE RECORDS SUMMARY | ~2019-08-24 | XMS | Encounter Summary ---
Demographics + + + | Address | [address] | | | [place] [address] | + + + | Home Phone [...] Team Providers + +------+ + | Care Signal Timer Name | Role | Phone | + [...]
--- OUTSIDE RECORDS SUMMARY | ~2019-08-24 | XMS | Encounter Summary ---
Demographics + + + | Address | [address] | | | [place] [address] | + + + | Home Phone | | + + + | Preferred Language | Unknown | + + + | Marital Status | Single | + + + | Anabaptism Affiliation [...] Team Providers + +------+ + | Care Salvage Determiner Name | Role | Phone | + [...] | | Dyana De Paz Mailcode: | [place], [place] | | | | | [id number] | [address] | | | | | [place], [place] | [phone] | | | | | [address] | | | | | | [phone] | | | +--------+ + + + [...]
--- OUTSIDE RECORDS SUMMARY | ~2019-08-24 | XMS | Encounter Summary ---
Demographics + + + | Address | [address] | | | [place] [address] | + + + | Home Phone [...] + | Author | [facility] | | | and Olegarioana | + + + | Organization | [facility] | | | [...] Team Providers + +------+ + | Care Set Up Mechanic Coating Machines Name | Role | Phone | + +------+ + PCP | Unavailable | + +------+ + Encounter Details +--------+ + + + + | Date | Type | Department | Care Team | Description | +--------+ + + + + | 11/22/ | Hospital | [facility] | Herminia[place]iana | Seizure (HCC); | | 2015 - | Encounter | [facility] [address] | Subdural hematoma, | | | | [address] | [address] | post-traumatic, | | 11/26/ | | [place], [place] | [place] [address] | initial encounter | | 2014 | | [id number] | [phone] | (HCC); 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 HISTORY OF PRESENT ILLNESS The patient is a 53 y.o. male with significant past medical history. 53 year old male transferred to this facility from [facility] for further evalu ation. The patient [...] if needed. Given report of potential seizure [employer] I asked staff to confirm the dose [...] this jae presently. Pt kept on there [employer] meds as possible. 11/26/14: patient still ready to d/c once the talha arrives. Nursing is looking into this f urther. The tsh is high but the T4 is in normal range. Would recc reche[facility]. Recent Labs Lab 11/25/14 0529 11/23/14 0425 TSH -- 12.42* FREET4 0.9 -- Past Medical History Diagnosis Date Alcohol abuse Frequent falls Drug abuse Past Surgical History Procedure Laterality Date No past surgeries Craniotomy Right 10/11/2014 Procedure: CRANIOTOMY - FOR BLEED; Surgeon: Anthony Chong MD; Location: [facility] IN OR; Service: Neurosurgery; Laterality: Right; [...] Value Units Date/Time CT head without contrast [[id number]] Resulted: 11/23/14719 Order Status: Completed Updated: 11/23/14724 Narrative: EVANS MCGUIRE [address] HEAD WO CONTRAST 11/23/2014 7:13 AM INDICATION: Altered mental status, hemorrhage COMPARISON: 11/22/14 TECHNIQUE: CT scan of the head without contrast. 5-mm axial noncontrast images were acquir ed from the foramen magnum through the cranial vertex. FINDINGS: On police commissioner imaging, there is normal craniocervical alignment with [...] with MRI could be performed. Head Non-Con [[id number]] Resulted: 11/22/142119 Order Status: Completed Updated: 11/22/142124 Narrative: EVANS MCGUIRE CT HEAD WO CONTRAST 11/22/2014 9:08 PM HISTORY: 53 years. Male. Subdural hematoma. TECHNIQUE: 5-mm axial noncontrast images were acquired from the foramen magnum through the cranial fidelina amadeo. COMPARISON: CT head noncontrast 11/22/2014 performed at [facility] 10/14/2014 FINDINGS: An extensive right-sided craniectomy [...] the head post right craniectomy. Disposition: senior living Condition: Stable Code Status: Full Code Discharge [...] orders. Aspiration precautions Fall precautions Follow up: [facility] [address] [facility] [address] In 4 weeks to eval for replacement of skull flap or sooner if needed Carlos Mcconnell MD [address] [place] [id number] In 1 week or next available whichever [...] are the prescriptions that you need to brain picker. You may get the following medications [...] Date of Service: 11/25/14 1015 Status: Signed Skinning Machine Feeder: Miguel Ángel John MD (Physician) [facility] Service: Hospitalist Discharge Summary Date of [...] H&P 11/23/14 0252 Expand All Collapse All [facility] Service: Hospitalist Admission History & Physical Date of Admission: 11/22/2014 Requesting Physician: [facility] Reason for Admission: SZ and SDH History Obtained From: patient CHIEF COMPLAINT: SZ and MARSH. HISTORY OF PRESENT ILLNESS The patient is a 53 y.o. male with significant past medical history. 53 year old male transferred to this facility from [facility] for further evalu ation. The patient [...] if needed. Given report of potential seizure [employer] I asked staff to confirm the dose [...] this jae presently. Pt kept on there [employer] meds as possible. 11/25/14: patient still ready to d/c once the talha arrives. Nursing is looking into this f urther. Past Medical History Diagnosis Date Alcohol abuse Frequent falls Drug abuse Past Surgical History Procedure Laterality Date No past surgeries Craniotomy Right 10/11/2014 Procedure: CRANIOTOMY - FOR BLEED; Surgeon: Anthony Chong MD; Location: [facility] IN OR; Service: Neurosurgery; Laterality: Right; [...] Value Units Date/Time CT head without contrast [[id number]] Resulted: 11/23/14719 Order Status: Completed Updated: 11/23/14724 Narrative: EVANS LOCKETTKATHI [address] HEAD WO CONTRAST 11/23/2014 7:13 AM INDICATION: Altered mental status, hemorrhage COMPARISON: 11/22/14 TECHNIQUE: CT scan of the head without contrast. 5-mm axial noncontrast images were acquir ed from the foramen magnum through the cranial vertex. FINDINGS: On police commissioner imaging, there is normal craniocervical alignment with [...] with MRI could be performed. Head Non-Con [[id number]] Resulted: 11/22/142119 Order Status: Completed Updated: 11/22/142124 Narrative: EVANS MCGUIRE CT HEAD WO CONTRAST 11/22/2014 9:08 PM HISTORY: 53 years. Male. Subdural hematoma. TECHNIQUE: 5-mm axial noncontrast images were acquired from the foramen magnum through the cranial fidelina amadeo. COMPARISON: CT head noncontrast 11/22/2014 performed at [facility] 10/14/2014 FINDINGS: An extensive right-sided craniectomy [...] the head post right craniectomy. Disposition: senior living Condition: Stable Code Status: Full Code Discharge [...] orders. Aspiration precautions Fall precautions Follow up: [facility] [address] [facility] [id number] In 4 weeks to eval for replacement of skull flap or sooner if needed Carlos Mcconnell MD [address] [place] [id number] In 1 week or next available whichever [...] are the prescriptions that you need to brain picker. You may get the following medications [...] 1934 Date of Service: 11/24/1436 Status: Signed Skinning Machine Feeder: Miguel Ángel John MD (Physician) [facility] Service: Hospitalist Discharge Summary Date of [...] H&P 11/23/14 0252 Expand All Collapse All [facility] Service: Hospitalist Admission History & Physical Date of Admission: 11/22/2014 Requesting Physician: Carter , Emergency Department Reason for Admission: SZ and SDH History Obtained From: patient CHIEF COMPLAINT: SZ and MARSH. HISTORY OF PRESENT ILLNESS The patient is a 53 y.o. male with significant past medical history. 53 year old male transferred to this facility from [facility] for further evalu ation. The patient [...] if needed. Given report of potential seizure [employer] I asked staff to confirm the dose [...] this jae presently. Pt kept on there [employer] meds as possible. Past Medical History Diagnosis Date Alcohol abuse Frequent falls Drug abuse Past Surgical History Procedure Laterality Date No past surgeries Craniotomy Right 10/11/2014 Procedure: CRANIOTOMY - FOR BLEED; Surgeon: Anthony Chong MD; Location: [facility] IN OR; Service: Neurosurgery; Laterality: Right; Craniectomy Right 10/11/2014 Procedure: CRANIECTOMY; Surgeon: Anthony Chong MD; Location: [facility] OR; Ser vice: Neurosurgery; Laterality: [...] Value Units Date/Time CT head without contrast [[id number]] Resulted: 11/23/14719 Order Status: Completed Updated: 11/23/14724 Narrative: EVANS MCGUIRE [address] HEAD WO CONTRAST 11/23/2014 7:13 AM INDICATION: Altered mental status, hemorrhage COMPARISON: 11/22/14 TECHNIQUE: CT scan of the head without contrast. 5-mm axial noncontrast images were acquir ed from the foramen magnum through the cranial vertex. FINDINGS: On police commissioner imaging, there is normal craniocervical alignment with [...] with MRI could be performed. Head Non-Con [[id number]] Resulted: 11/22/142119 Order Status: Completed Updated: 11/22/142124 Narrative: EVANS LOCKETTKATHI CT HEAD WO CONTRAST 11/22/2014 9:08 PM HISTORY: 53 years. Male. Subdural hematoma. TECHNIQUE: 5-mm axial noncontrast images were acquired from the foramen magnum through the cranial fidelina amadeo. COMPARISON: CT head noncontrast 11/22/2014 performed at [facility] 10/14/2014 FINDINGS: An extensive right-sided craniectomy [...] the head post right craniectomy. Disposition: senior living Condition: Stable Code Status: Full Code No discharge procedures on file. Follow up: [facility] [address] [facility] [address] In 4 weeks to eval for replacement of skull flap or sooner if needed Carlos Mcconnell MD [address] [place] [id number] In 1 week or next available whichever [...] 11/26/141714 Date of Service: 11/26/141713 Status: Signed Skinning Machine Feeder: Mirtha Suh RN (Registered Nurse) Discharge packet given to transport drivers, report on pt given, all questions answered. IV removed. Report called to Na GALARZA at [facility]. Patient left via transport to [facility]. onver a[facility] Transaction, Provider Unknown - 11/26/2014 4:18 PM PDT Case Management by Josseline Mera RN at 11/26/14 1618 Author: Josseline Mera RN Service: (none) Author Type: Motion Picture Equipment Supervisor Filed: 11/26/14 1619 Date of Service: 11/26/14 1618 Status: Signed Skinning Machine Feeder: Josseline Mera RN (Motion Picture Equipment Supervisor) Disposition: [facility] Transportation: [place] Medicaid-ambulance All orders, signed AVS, and prescriptions have been faxed All DC paperwork completed Patient and family in agreement with discharge plan Medicare important message (N/A): Josseline Mera onver alem Transaction, Provider Unknown - 11/26/2014 9:08 AM PDT Case Management by Josseline Mera RN at 11/26/14 0908 Author: Josseline Mera RN Service: (none) Author Type: Motion Picture Equipment Supervisor Filed: 11/26/14 1320 Date of Service: 11/26/14 0908 Status: Addendum Skinning Machine Feeder: Josseline Mera RN (Motion Picture Equipment Supervisor) Related Notes: Original Note by Josseline Mera RN (Motion Picture Equipment Supervisor) filed at 11/26/14 0954 Discharge Plans: Informed that helmet did not arrive on Wednesday as promised, thus pt has not been discharged. Call placed to [facility] and they are indicating it will be deli qamar by 10:30am today. [facility] ([place] informed of plans to [place] today. Stretcher [employer] arranged for 2pm today. Paperwork completed, ready for faxing when helmet arrives. 11:00 Notified [place] Medicaid transport that patient has been discharged and his helmet is her e. 1317 [facility] ([phone]) and they are in route and (possibly here by 4:30), will call us when closer so we can have pt ready for transport. onver alem Transaction, Provider Unknown - 11/23/2014 9:16 AM PST Case Management by Josseline Mera RN at 11/23/14 0916 Author: Josseline Mera RN Service: (none) Author Type: Motion Picture Equipment Supervisor Filed: 11/23/14 1212 Date of Service: 11/23/14915 Status: Addendum Skinning Machine Feeder: Josseline Mera RN (Motion Picture Equipment Supervisor) Related Notes: Original Note by Josseline Mera RN (Motion Picture Equipment Supervisor) filed at 11/23/14 0931 Discharge Planning: Phoned Evans's father Jay Jay ([phone]) to discuss DC plans. He indicated that Evans has been living at [facility] and the plan is for him to [...] phone, ended the call. I did call [facility] and they are willing to take Evans back when it is appropriate. Th ey are asking that we arrange transport because of his seizures and spontaneous activity it may not be safe, and that he does not have his helmet here. [place] Medicaid Transport ) contacted and they can provide stretcher transport but will need definite time to transport. onver alem Transaction, Provider Unknown - 11/23/2014 8:43 AM PST Nurse Progress Note by Misty Hays RN at 11/23/1443 Author: Misty Hays RN Service: (none) Author Type: Registered Nurse Filed: 11/23/14 1410 Date of Service: 11/23/14842 Status: Addendum Skinning Machine Feeder: Misty Hays RN (Registered Nurse) Related Notes: Original Note by Misty Hays RN (Registered Nurse) filed at 1804 [id number]: Attempted to call Teressa ([phone]) back to give updates and ask pts [...] she had picked up the helmet from [place] and was not planning on co elizabeth to see the patient until Wednesday. Explained the importance of the helmet. Mother did no t seem to understand importance. onver alem Transaction, Provider Unknown - 11/23/2014 6:29 AM PST Progress Notes by Kyrie Payne RPH at 11/23/14628 Author: Kyrie Payne RPH Service: (none) Author Type: Pharmacist Filed: 11/23/14629 Date of Service: 11/23/1429 Status: Signed Skinning Machine Feeder: Kyrie Payne RPH (Pharmacist) Scr = 0.6- [...] | | | | | [place] [address] | | | | + + + + + + | RED CELL | 3.88 (L)Comment: Testing | 4.20 - 5.70 | EXTERNAL | | | COUNT | performed at [facility], [address] | M/uL | LAB | | | | [address], | | | | | | [place] [address] | | | | + + + + + + | Hgb | 12.3 (L)Comment: Testing | 13.2 - 17.0 | EXTERNAL | | | | performed at [facility], [address] | g/dL | LAB | | | | [address], | | | | | | [place] [address] | | | | + + + [...] | | | | | [place] [address] | | | | + + + + + + | MCH | 31.7Comment: Testing | 27.0 - 34.0 pg | EXTERNAL | | | | performed at [facility], [address] | | LAB | | | | [address], | | | | | | [place] [address] | | | | + + + + + + | MCHC | 34.0Comment: Testing | 32.0 - 35.5 | EXTERNAL | | | | performed at [facility], [address] | g/dL | LAB | | | | [address], | | | | | | [place] [address] | | | | + + + + + + | RDW-CV | 46.8Comment: Testing | 37 - 53 fl | EXTERNAL | | | | performed at [facility], [address] | | LAB | | | | [address], | | | | | | [place] [address] | | | | + + + + + + | Platelet | 161Comment: Testing | 150 - 400 K/uL | EXTERNAL | | | Count | performed at [facility], [address] | | LAB | | | Plasma | [address], | | | | | | [place] [address] | | | | + + + + + + | MPV | 8.7Comment: Testing | fl | EXTERNAL | | | | performed at [facility], [address] | | LAB | | | | [address], | | | | | | [place] [address] | | | | + + + + + + | Differentia | AUTOMATEDComment: | | EXTERNAL | | | l Type | Testing performed at | | LAB | | | | [facility], [address] | | | | | | [place] | | | | | | [address] | | | | + + + + + + | % Segmented | 64.56Comment: Testing | % | EXTERNAL | | | | performed at [facility], [address] | | LAB | | | Neutrophils | [address], | | | | | | [place] [address] | | | | + + + + + + | % | 18.74Comment: Testing | % | EXTERNAL | | | Lymphocytes | performed at [facility], [address] | | LAB | | | | [address], | | | | | | [place] [address] | | | | + + + [...] | | | | | [place] [address] | | | | + + + + + + | % Basophils | 0.71Comment: Testing | % | EXTERNAL | | | | performed at [facility], [address] | | LAB | | | | [address], | | | | | | [place] [address] | | | | + + + + + + | Absolute | 3.91Comment: Testing | 1.90 - 7.40 | EXTERNAL | | | Segmented | performed at [facility], [address] | K/uL | LAB | | | Neutrophils | [address], | | | | | | [place] [address] | | | | + + + + + + | Absolute | 1.14Comment: Testing | 1.00 - 3.90 | EXTERNAL | | | Lymphocytes | performed at [facility], [address] | K/uL | LAB | | | | [address], | | | | | | [place] [address] | | | | + + + + + + | Absolute | 0.67Comment: Testing | 0.00 - 0.80 | EXTERNAL | | | Monocytes | performed at [facility], [address] | K/uL | LAB | | | | [address], | | | | | | [place] [address] | | | | + + + + + + | Absolute | 0.30Comment: Testing | 0.00 - 0.50 | EXTERNAL | | | Eosinophils | performed at [facility], [address] | K/uL | LAB | | | | [address], | | | | | | [place] [address] | | | | + + + + + + | Absolute | 0.04Comment: Testing | 0.00 - 0.10 | EXTERNAL | | | Basophils | performed at [facility], [address] | K/uL | LAB | | | | [address], | | | | | | [place] [address] | | | | + + + [...] EXTERNAL | | | | performed at [facility], [address] | | LAB | | | | [address], | | | | | | [place] [address] | | | | + + + [...] EXTERNAL | | | | performed at [facility], [address] | | LAB | | | | [address], | | | | | | [place] [address] | | | | + + + [...] | | | | | [place] [address] | | | | + + + + + + | K | 3.8Comment: Testing | 3.5 - 4.9 | EXTERNAL | | | | performed at [facility], [address] | mmol/L | LAB | | | | [address], | | | | | | [place] [address] | | | | + + + + + + | Cl | 104Comment: Testing | 99 - 109 mmol/L | EXTERNAL | | | | performed at [facility], [address] | | LAB | | | | [address], | | | | | | [place] [address] | | | | + + + + + + | CO2 | 27Comment: Testing | 23 - 32 mmol/L | EXTERNAL | | | | performed at [facility], [address] | | LAB | | | | [address], | | | | | | [place] [address] | | | | + + + + + + | Anion Gap | 9Comment: Testing | 5 - 20 mmol/L | EXTERNAL | | | | performed at [facility], [address] | | LAB | | | | [address], | | | | | | [place] [address] | | | | + + + + + + | Glucose, | 99Comment: Testing | 65 - 99 mg/dL | EXTERNAL | | | Fasting | performed at [facility], [address] | | LAB | | | | [address], | | | | | | [place] [address] | | | | + + + + + + | BUN | 8Comment: Testing | 8 - 25 mg/dL | EXTERNAL | | | | performed at [facility], [address] | | LAB | | | | [address], | | | | | | [place] [address] | | | | + + + + + + | Creatinine | 0.62 (L)Comment: Testing | 0.70 - 1.30 | EXTERNAL | | | | performed at [facility], [address] | mg/dL | LAB | | | | [address], | | | | | | [place] [address] | | | | + + + + + + | BUN/Creatin | 13Comment: Testing | | EXTERNAL | | | ine Ratio | performed at [facility], [address] | | LAB | | | [address], | | | | | | [place] [address] | | | | + + + + + + | Calcium | 8.9Comment: Testing | 8.5 - 10.5 | EXTERNAL | | | | performed at [facility], [address] | mg/dL | LAB | | | | [address], | | | | | | [place] [address] | | | | + + + + + + | Protein, | 6.7Comment: Testing | 6.3 - 8.2 g/dL | EXTERNAL | | | Total | performed at [facility], [address] | | LAB | | | | [address], | | | | | | [place] [address] | | | | + + + + + + | Albumin | 3.2 (L)Comment: Testing | 3.6 - 5.0 g/dL | EXTERNAL | | | | performed at [facility], [address] | | LAB | | | | [address], | | | | | | [place] [address] | | | | + + + + + + | Globulin | 3.5Comment: Testing | 1.3 - 4.9 g/dL | EXTERNAL | | | | performed at [facility], [address] | | LAB | | | [address], | | | | | | [place] [address] | | | | + + + + + + | A/G Ratio | 0.9 (L)Comment: Testing | 1.0 - 2.4 | EXTERNAL | | | | performed at [facility], [address] | | LAB | | | | [address], | | | | | | [place] [address] | | | | + + + + + + | Bilirubin | 0.4Comment: Testing | 0.1 - 1.5 mg/dL | EXTERNAL | | | Total | performed at [facility], [address] | | LAB | | | | [address], | | | | | | [place] [address] | | | | + + + + + + | ALP, | 105Comment: Testing | 35 - 115 U/L | EXTERNAL | | | External | performed at [facility], [address] | | LAB | | | | [address], | | | | | | [place] [address] | | | | + + + + + + | AST | 26Comment: Testing | 10 - 45 U/L | EXTERNAL | | | | performed at [facility], [address] | | LAB | | | | [address], | | | | | | [place] [address] | | | | + + + + + + | ALT | 19Comment: Testing | 10 - 65 U/L | EXTERNAL | | | | performed at [facility], [address] | | LAB | | | | [address], | | | | | | [place] [address] | | | | + + + [...] [address] | | | | | | [address], | | | | | | [place] [address] | | | | + + + [...] EXTERNAL | | | | performed at [facility], [address] | K/uL | LAB | | | | [address], | | | | | | [place] [address] | | | | + + + + + + | RED CELL | 4.10 (L)Comment: Testing | 4.20 - 5.70 | EXTERNAL | | | COUNT | performed at [facility], [address] | M/uL | LAB | | | | [address], | | | | | | [place] [address] | | | | + + + + + + | Hgb | 12.9 (L)Comment: Testing | 13.2 - 17.0 | EXTERNAL | | | | performed at [facility], [address] | g/dL | LAB | | | | [address], | | | | | | [place] [address] | | | | + + + + + + | Hematocrit, | 38.6 (L)Comment: Testing | 39.0 - 50.0 % | EXTERNAL | | | POC | performed at [facility], [address] | | LAB | | | | [address], | | | | | | [place] [address] | | | | + + + + + + | MCV | 94.2Comment: Testing | 80.0 - 100.0 fl | EXTERNAL | | | | performed at [facility], [address] | | LAB | | | | [address], | | | | | | [place] [address] | | | | + + + + + + | MCH | 31.4Comment: Testing | 27.0 - 34.0 pg | EXTERNAL | | | | performed at [facility], [address] | | LAB | | | | [address], | | | | | | [place] [address] | | | | + + + + + + | MCHC | 33.3Comment: Testing | 32.0 - 35.5 | EXTERNAL | | | | performed at [facility], [address] | g/dL | LAB | | | | [address], | | | | | | [place] [address] | | | | + + + + + + | RDW-CV | 46.8Comment: Testing | 37 - 53 fl | EXTERNAL | | | | performed at [facility], [address] | | LAB | | | | [address], | | | | | | [place] [address] | | | | + + + + + + | Platelet | 161Comment: Testing | 150 - 400 K/uL | EXTERNAL | | | Count | performed at [facility], [address] | | LAB | | | Plasma | [address], | | | | | | [place] [address] | | | | + + + + + + | MPV | 8.9Comment: Testing | fl | EXTERNAL | | | | performed at [facility], [address] | | LAB | | | | [address], | | | | | | [place] [address] | | | | + + + + + + | Differentia | AUTOMATEDComment: | | EXTERNAL | | | l Type | Testing performed at | | LAB | | | | [facility], [address] | | | | | | [place] | | | | | | [address] | | | | + + + + + + | % Segmented | 60.71Comment: Testing | % | EXTERNAL | | | | performed at [facility], [address] | | LAB | | | Neutrophils | [address], | | | | | | [place] [address] | | | | + + + + + + | % | 21.02Comment: Testing | % | EXTERNAL | | | Lymphocytes | performed at [facility], [address] | | LAB | | | | [address], | | | | | | [place] [address] | | | | + + + + + + | % Monocytes | 12.59Comment: Testing | % | EXTERNAL | | | | performed at [facility], [address] | | LAB | | | | [address], | | | | | | [place] [address] | | | | + + + + + + | % | 5.10Comment: Testing | % | EXTERNAL | | | Eosinophils | performed at [facility], [address] | | LAB | | | | [address], | | | | | | [place] [address] | | | | + + + + + + | % Basophils | 0.58Comment: Testing | % | EXTERNAL | | | | performed at [facility], [address] | | LAB | | | [address], | | | | | | [place] [address] | | | | + + + + + + | Absolute | 3.70Comment: Testing | 1.90 - 7.40 | EXTERNAL | | | Segmented | performed at [facility], [address] | K/uL | LAB | | | Neutrophils | [address], | | | | | | [place] [address] | | | | + + + + + + | Absolute | 1.28Comment: Testing | 1.00 - 3.90 | EXTERNAL | | | Lymphocytes | performed at [facility], [address] | K/uL | LAB | | | | [address], | | | | | | [place] [address] | | | | + + + + + + | Absolute | 0.77Comment: Testing | 0.00 - 0.80 | EXTERNAL | | | Monocytes | performed at [facility], [address] | K/uL | LAB | | | | [address], | | | | | | [place] [address] | | | | + + + + + + | Absolute | 0.31Comment: Testing | 0.00 - 0.50 | EXTERNAL | | | Eosinophils | performed at [facility], [address] | K/uL | LAB | | | | [address], | | | | | | [place] [address] | | | | + + + + + + | Absolute | 0.04Comment: Testing | 0.00 - 0.10 | EXTERNAL | | | Basophils | performed at [facility], [address] | K/uL | LAB | | | | [address], | | | | | | [place] [address] | | | | + + + [...] | | | (REF) | performed at [facility], [address] | | LAB | | | | [address], | | | | | | [place] [address] | | | | + + + [...] EXTERNAL | | | | performed at [facility], [address] | | LAB | | | | [address], | | | | | | [place] [address] | | | | + + + [...] | | | | | [place] [address] | | | | + + + [...] | | | | | [place] [address] | | | | + + + + + + | K | 3.8Comment: Testing | 3.5 - 4.9 | EXTERNAL | | | | performed at [facility], [address] | mmol/L | LAB | | | | [address], | | | | | | [place] [address] | | | | + + + + + + | Cl | 104Comment: Testing | 99 - 109 mmol/L | EXTERNAL | | | | performed at [facility], [address] | | LAB | | | | [address], | | | | | | [place] [address] | | | | + + + + + + | CO2 | 28Comment: Testing | 23 - 32 mmol/L | EXTERNAL | | | | performed at [facility], [address] | | LAB | | | | [address], | | | | | | [place] [address] | | | | + + + + + + | Anion Gap | 8Comment: Testing | 5 - 20 mmol/L | EXTERNAL | | | | performed at [facility], [address] | | LAB | | | | [address], | | | | | | [place] [address] | | | | + + + + + + | Glucose, | 107 (H)Comment: Testing | 65 - 99 mg/dL | EXTERNAL | | | Fasting | performed at [facility], [address] | | LAB | | | | [address], | | | | | | [place] [address] | | | | + + + + + + | BUN | 6 (L)Comment: Testing | 8 - 25 mg/dL | EXTERNAL | | | | performed at [facility], [address] | | LAB | | | | [address], | | | | | | [place] [address] | | | | + + + + + + | Creatinine | 0.59 (L)Comment: Testing | 0.70 - 1.30 | EXTERNAL | | | | performed at [facility], [address] | mg/dL | LAB | | | | [address], | | | | | | [place] [address] | | | | + + + + + + | BUN/Creatin | 10Comment: Testing | | EXTERNAL | | | ine Ratio | performed at [facility], [address] | | LAB | | | | [address], | | | | | | [place] [address] | | | | + + + + + + | Calcium | 9.2Comment: Testing | 8.5 - 10.5 | EXTERNAL | | | | performed at [facility], [address] | mg/dL | LAB | | | | [address], | | | | | | [place] [address] | | | | + + + + + + | Protein, | 7.0Comment: Testing | 6.3 - 8.2 g/dL | EXTERNAL | | | Total | performed at [facility], [address] | | LAB | | | | [address], | | | | | | [place] [address] | | | | + + + + + + | Albumin | 3.4 (L)Comment: Testing | 3.6 - 5.0 g/dL | EXTERNAL | | | | performed at [facility], [address] | | LAB | | | | [address], | | | | | | [place] [address] | | | | + + + + + + | Globulin | 3.6Comment: Testing | 1.3 - 4.9 g/dL | EXTERNAL | | | | performed at [facility], [address] | | LAB | | | | [address], | | | | | | [place] [address] | | | | + + + + + + | A/G Ratio | 0.9 (L)Comment: Testing | 1.0 - 2.4 | EXTERNAL | | | | performed at [facility], [address] | | LAB | | | | [address], | | | | | | [place] [address] | | | | + + + + + + | Bilirubin | 0.5Comment: Testing | 0.1 - 1.5 mg/dL | EXTERNAL | | | Total | performed at [facility], [address] | | LAB | | | | [address], | | | | | | [place] [address] | | | | + + + + + + | ALP, | 115Comment: Testing | 35 - 115 U/L | EXTERNAL | | | External | performed at [facility], [address] | | LAB | | | | [address], | | | | | | [place] [address] | | | | + + + + + + | AST | 27Comment: Testing | 10 - 45 U/L | EXTERNAL | | | | performed at [facility], [address] | | LAB | | | | [address], | | | | | | [place] [address] | | | | + + + + + + | ALT | 21Comment: Testing | 10 - 65 U/L | EXTERNAL | | | | performed at [facility], [address] | | LAB | | | | [address], | | | | | | [place] [address] | | | | + + + [...] | | | | | | at [facility], [address] | | | | | | [address], | | | | | | [place] [address] | | | | + + + [...] EXTERNAL | | | | performed at [facility], [address] | K/uL | LAB | | | | [address], | | | | | | [place] [address] | | | | + + + + + + | RED CELL | 4.01 (L)Comment: Testing | 4.20 - 5.70 | EXTERNAL | | | COUNT | performed at [facility], [address] | M/uL | LAB | | | | [address], | | | | | | [place] [address] | | | | + + + + + + | Hgb | 12.3 (L)Comment: Testing | 13.2 - 17.0 | EXTERNAL | | | | performed at [facility], [address] | g/dL | LAB | | | | [address], | | | | | | [place] [address] | | | | + + + + + + | Hematocrit, | 37.8 (L)Comment: Testing | 39.0 - 50.0 % | EXTERNAL | | | POC | performed at [facility], [address] | | LAB | | | | [address], | | | | | | [place] [address] | | | | + + + + + + | MCV | 94.3Comment: Testing | 80.0 - 100.0 fl | EXTERNAL | | | | performed at [facility], [address] | | LAB | | | | [address], | | | | | | [place] [address] | | | | + + + + + + | MCH | 30.6Comment: Testing | 27.0 - 34.0 pg | EXTERNAL | | | | performed at [facility], [address] | | LAB | | | | [address], | | | | | | [place] [address] | | | | + + + + + + | MCHC | 32.4Comment: Testing | 32.0 - 35.5 | EXTERNAL | | | | performed at [facility], [address] | g/dL | LAB | | | | [address], | | | | | | [place] [address] | | | | + + + + + + | RDW-CV | 47.7Comment: Testing | 37 - 53 fl | EXTERNAL | | | | performed at [facility], [address] | | LAB | | | | [address], | | | | | | [place] [address] | | | | + + + + + + | Platelet | 153Comment: Testing | 150 - 400 K/uL | EXTERNAL | | | Count | performed at [facility], [address] | | LAB | | | Plasma | [address], | | | | | | [place] [address] | | | | + + + + + + | MPV | 9.0Comment: Testing | fl | EXTERNAL | | | | performed at [facility], [address] | | LAB | | | | [address], | | | | | | [place] [address] | | | | + + + + + + | Differentia | AUTOMATEDComment: | | EXTERNAL | | | l Type | Testing performed at | | LAB | | | | [facility], [address] | | | | | | [place] | | | | | | [address] | | | | + + + + + + | % Segmented | 70.29Comment: Testing | % | EXTERNAL | | | | performed at [facility], [address] | | LAB | | | Neutrophils | [address], | | | | | | [place] [address] | | | | + + + + + + | % | 14.74Comment: Testing | % | EXTERNAL | | | Lymphocytes | performed at [facility], [address] | | LAB | | | | [address], | | | | | | [place] [address] | | | | + + + + + + | % Monocytes | 10.97Comment: Testing | % | EXTERNAL | | | | performed at [facility], [address] | | LAB | | | | [address], | | | | | | [place] [address] | | | | + + + + + + | % | 3.52Comment: Testing | % | EXTERNAL | | | Eosinophils | performed at [facility], [address] | | LAB | | | | [address], | | | | | | [place] [address] | | | | + + + + + + | % Basophils | 0.48Comment: Testing | % | EXTERNAL | | | | performed at [facility], [address] | | LAB | | | | [address], | | | | | | [place] [address] | | | | + + + + + + | Absolute | 5.09Comment: Testing | 1.90 - 7.40 | EXTERNAL | | | Segmented | performed at [facility], [address] | K/uL | LAB | | | Neutrophils | [address], | | | | | | [place] [address] | | | | + + + + + + | Absolute | 1.07Comment: Testing | 1.00 - 3.90 | EXTERNAL | | | Lymphocytes | performed at [facility], [address] | K/uL | LAB | | | | [address], | | | | | | [place] [address] | | | | + + + + + + | Absolute | 0.79Comment: Testing | 0.00 - 0.80 | EXTERNAL | | | Monocytes | performed at [facility], [address] | K/uL | LAB | | | | [address], | | | | | | [place] [address] | | | | + + + + + + | Absolute | 0.26Comment: Testing | 0.00 - 0.50 | EXTERNAL | | | Eosinophils | performed at [facility], [address] | K[address] | LAB | | | | [address], | | | | | | [place] [address] | | | | + + + + + + | Absolute | 0.03Comment: Testing | 0.00 - 0.10 | EXTERNAL | | | Basophils | performed at [facility], [address] | K/[address] | LAB | | | | [address], | | | | | | [place] [address] | | | | + + + [...] EXTERNAL | | | | performed at [facility], [address] | | LAB | | | | [address], | | | | | | [place] [address] | | | | + + + [...] | | | | | [place] [address] | | | | + + [...] | | | | | [place] [address] | | | | + + + + + + | K | 4.0Comment: Testing | 3.5 - 4.9 | EXTERNAL | | | | performed at [facility], [address] | mmol/L | LAB | | | | [address], | | | | | | [place] [address] | | | | + + + + + + | Cl | 102Comment: Testing | 99 - 109 mmol/L | EXTERNAL | | | | performed at [facility], [address] | | LAB | | | | [address], | | | | | | [place] [address] | | | | + + + + + + | CO2 | 26Comment: Testing | 23 - 32 mmol/L | EXTERNAL | | | | performed at [facility], [address] | | LAB | | | | [address], | | | | | | [place] [address] | | | | + + + + + + | Anion Gap | 11Comment: Testing | 5 - 20 mmol/L | EXTERNAL | | | | performed at [facility], [address] | | LAB | | | | [address], | | | | | | [place] [address] | | | | + + + + + + | Glucose, | 103 (H)Comment: Testing | 65 - 99 mg/dL | EXTERNAL | | | Fasting | performed at [facility], [address] | | LAB | | | | [address], | | | | | | [place] [address] | | | | + + + + + + | BUN | 6 (L)Comment: Testing | 8 - 25 mg/dL | EXTERNAL | | | | performed at [facility], [address] | | LAB | | | | [address], | | | | | | [place] [address] | | | | + + + + + + | Creatinine | 0.63 (L)Comment: Testing | 0.70 - 1.30 | EXTERNAL | | | | performed at [facility], [address] | mg/dL | LAB | | | | [address], | | | | | | [place] [address] | | | | + + + + + + | BUN/Creatin | 10Comment: Testing | | EXTERNAL | | | ine Ratio | performed at [facility], [address] | | LAB | | | | [address], | | | | | | [place] [address] | | | | + + + + + + | Calcium | 9.3Comment: Testing | 8.5 - 10.5 | EXTERNAL | | | | performed at [facility], [address] | mg/dL | LAB | | | | [address], | | | | | | [place] [address] | | | | + + + + + + | Protein, | 6.9Comment: Testing | 6.3 - 8.2 g/dL | EXTERNAL | | | Total | performed at [facility], [address] | | LAB | | | | [address], | | | | | | [place] [address] | | | | + + + + + + | Albumin | 3.5 (L)Comment: Testing | 3.6 - 5.0 g/dL | EXTERNAL | | | | performed at [facility], [address] | | LAB | | | | [address], | | | | | | [place] [address] | | | | + + + + + + | Globulin | 3.4Comment: Testing | 1.3 - 4.9 g/dL | EXTERNAL | | | | performed at [facility], [address] | | LAB | | | | [address], | | | | | | [place] [address] | | | | + + + + + + | A/G Ratio | 1.0Comment: Testing | 1.0 - 2.4 | EXTERNAL | | | | performed at [facility], [address] | | LAB | | | | [address], | | | | | | [place] [address] | | | | + + + + + + | Bilirubin | 0.5Comment: Testing | 0.1 - 1.5 mg/dL | EXTERNAL | | | Total | performed at [facility], [address] | | LAB | | | | [address], | | | | | | [place] [address] | | | | + + + + + + | ALP, | 103Comment: Testing | 35 - 115 U/L | EXTERNAL | | | External | performed at [facility], [address] | | LAB | | | | [address], | | | | | | [place] [address] | | | | + + + + + + | AST | 27Comment: Testing | 10 - 45 U/L | EXTERNAL | | | | performed at [facility], [address] | | LAB | | | | [address], | | | | | | [place] [address] | | | | + + + + + + | ALT | 23Comment: Testing | 10 - 65 U/L | EXTERNAL | | | | performed at [facility], [address] | | LAB | | | | [address], | | | | | | [place] [address] | | | | + + + [...] | | | | | [place] [address] | | | | + + + [...] magnum through the cranial vertex. FINDINGS: On police commissioner | | | imaging, there is normal [...] the cranial vertex. | | FINDINGS: On police commissioner imaging, there is normal craniocervical alignment with [...] EXTERNAL | | | | performed at [facility], [address] | K/uL | LAB [...] | | | | | [place] [address] | | | | + + + + + + | Hgb | 12.5 (L)Comment: Testing | 13.2 - 17.0 | EXTERNAL | | | | performed at [facility], [address] | g/dL | LAB | | | | [address], | | | | | | [place] [address] | | | | + + + + + + | Hematocrit, | 38.0 (L)Comment: Testing | 39.0 - 50.0 % | EXTERNAL | | | POC | performed at [facility], [address] | | LAB | | | | [address], | | | | | | [place] [address] | | | | + + + + + + | MCV | 94.9Comment: Testing | 80.0 - 100.0 fl | EXTERNAL | | | | performed at [facility], [address] | | LAB | | | | [address], | | | | | | [place] [address] | | | | + + + + + + | MCH | 31.2Comment: Testing | 27.0 - 34.0 pg | EXTERNAL | | | | performed at [facility], [address] | | LAB | | | | [address], | | | | | | [place] [address] | | | | + + + + + + | MCHC | 32.9Comment: Testing | 32.0 - 35.5 | EXTERNAL | | | | performed at [facility], [address] | g/dL | LAB | | | | [address], | | | | | | [place] [address] | | | | + + + + + + | RDW-CV | 47.3Comment: Testing | 37 - 53 fl | EXTERNAL | | | | performed at [facility], [address] | | LAB | | | | [address], | | | | | | [place] [address] | | | | + + + + + + | Platelet | 171Comment: Testing | 150 - 400 K/uL | EXTERNAL | | | Count | performed at [facility], [address] | | LAB | | | Plasma | [address], | | | | | | [place] [address] | | | | + + + + + + | MPV | 8.8Comment: Testing | fl | EXTERNAL | | | | performed at [facility], [address] | | LAB | | | | [address], | | | | | | [place] [address] | | | | + + + + + + | Differentia | AUTOMATEDComment: | | EXTERNAL | | | l Type | Testing performed at | | LAB | | | | [facility], [address] | | | | | | [place] | | | | | | [address] | | | | + + + + + + | % Segmented | 67.69Comment: Testing | % | EXTERNAL | | | | performed at [facility], [address] | | LAB | | | Neutrophils | [address], | | | | | | [place] [address] | | | | + + + + + + | % | 20.09Comment: Testing | % | EXTERNAL | | | Lymphocytes | performed at [facility], [address] | | LAB | | | | [address], | | | | | | [place] [address] | | | | + + + + + + | % Monocytes | 9.27Comment: Testing | % | EXTERNAL | | | | performed at [facility], [address] | | LAB | | | | [address], | | | | | | [place] [address] | | | | + + + + + + | % | 2.66Comment: Testing | % | EXTERNAL | | | Eosinophils | performed at [facility], [address] | | LAB | | | | [address], | | | | | | [place] [address] | | | | + + + + + + | % Basophils | 0.29Comment: Testing | % | EXTERNAL | | | | performed at [facility], [address] | | LAB | | | | [address], | | | | | | [place] [address] | | | | + + + + + + | Absolute | 5.79Comment: Testing | 1.90 - 7.40 | EXTERNAL | | | Segmented | performed at [facility], [address] | K/uL | LAB | | | Neutrophils | [address], | | | | | | [place] [address] | | | | + + + + + + | Absolute | 1.72Comment: Testing | 1.00 - 3.90 | EXTERNAL | | | Lymphocytes | performed at [facility], [address] | K/uL | LAB | | | | [address], | | | | | | [place] [address] | | | | + + + + + + | Absolute | 0.79Comment: Testing | 0.00 - 0.80 | EXTERNAL | | | Monocytes | performed at [facility], [address] | K/uL | LAB | | | | [address], | | | | | | [place] [address] | | | | + + + + + + | Absolute | 0.23Comment: Testing | 0.00 - 0.50 | EXTERNAL | | | Eosinophils | performed at [facility], [address] | K/uL | LAB | | | | [address], | | | | | | [place] [address] | | | | + + + + + + | Absolute | 0.03Comment: Testing | 0.00 - 0.10 | EXTERNAL | | | Basophils | performed at [facility], [address] | K/[address]L | LAB | | | | [address], | | | | | | [place] [address] | | | | + + + [...] [place] | | | | | | [address] | | | | + + + [...] EXTERNAL | | | | performed at [facility], [address] | | LAB | | | | [address], | | | | | | [place] [address] | | | | + + + [...] EXTERNAL | | | | performed at [facility], [address] | | LAB | | | | [address], | | | | | | [place] [address] | | | | + + + [...] | | | | | [place] [address] | | | | + + + + + + | K | 4.2Comment: Testing | 3.5 - 4.9 | EXTERNAL | | | | performed at [facility], [address] | mmol/L | LAB | | | | [address], | | | | | | [place] [address] | | | | + + + + + + | Cl | 102Comment: Testing | 99 - 109 mmol/L | EXTERNAL | | | | performed at [facility], [address] | | LAB | | | | [address], | | | | | | [place] [address] | | | | + + + + + + | CO2 | 25Comment: Testing | 23 - 32 mmol/L | EXTERNAL | | | | performed at [facility], [address] | | LAB | | | | [address], | | | | | | [place] [address] | | | | + + + + + + | Anion Gap | 13Comment: Testing | 5 - 20 mmol/L | EXTERNAL | | | | performed at [facility], [address] | | LAB | | | | [address], | | | | | | [place] [address] | | | | + + + + + + | Glucose, | 113 (H)Comment: Testing | 65 - 99 mg/dL | EXTERNAL | | | Fasting | performed at [facility], [address] | | LAB | | | | [address], | | | | | | [place] [address] | | | | + + + + + + | BUN | 4 (L)Comment: Testing | 8 - 25 mg/dL | EXTERNAL | | | | performed at [facility], [address] | | LAB | | | | [address], | | | | | | [place] [address] | | | | + + + + + + | Creatinine | 0.60 (L)Comment: Testing | 0.70 - 1.30 | EXTERNAL | | | | performed at [facility], [address] | mg/dL | LAB | | | | [address], | | | | | | [place] [address] | | | | + + + + + + | BUN/Creatin | 7Comment: Testing | | EXTERNAL | | | ine Ratio | performed at [facility], [address] | | LAB | | | | [address], | | | | | | [place] [address] | | | | + + + + + + | Calcium | 9.4Comment: Testing | 8.5 - 10.5 | EXTERNAL | | | | performed at [facility], [address] | mg/dL | LAB | | | | [address], | | | | | | [place] [address] | | | | + + + + + + | Protein, | 7.3Comment: Testing | 6.3 - 8.2 g/dL | EXTERNAL | | | Total | performed at [facility], [address] | | LAB | | | | [address], | | | | | | [place] [address] | | | | + + + + + + | Albumin | 3.7Comment: Testing | 3.6 - 5.0 g/dL | EXTERNAL | | | | performed at [facility], [address] | | LAB | | | | [address], | | | | | | [place] [address] | | | | + + + + + + | Globulin | 3.6Comment: Testing | 1.3 - 4.9 g/dL | EXTERNAL | | | | performed at [facility], [address] | | LAB | | | | [address], | | | | | | [place] [address] | | | | + + + + + + | A/G Ratio | 1.0Comment: Testing | 1.0 - 2.4 | EXTERNAL | | | | performed at [facility], [address] | | LAB | | | | [address], | | | | | | [place] [address] | | | | + + + + + + | Bilirubin | 0.5Comment: Testing | 0.1 - 1.5 mg/dL | EXTERNAL | | | Total | performed at [facility], [address] | | LAB | | | | [address], | | | | | | [place] [address] | | | | + + + + + + | ALP, | 104Comment: Testing | 35 - 115 U/L | EXTERNAL | | | External | performed at [facility], [address] | | LAB | | | | [address], | | | | | | [place] [address] | | | | + + + + + + | AST | 36Comment: Testing | 10 - 45 U/L | EXTERNAL | | | | performed at [facility], [address] | | LAB | | | | [address], | | | | | | [place] [address] | | | | + + + + + + | ALT | 26Comment: Testing | 10 - 65 U/L | EXTERNAL | | | | performed at [facility], [address] | | LAB | | | | [facility], | | | | | | [place] [address] | | | | + + + [...] | | | | | | at [facility], [address] | | | | | | [facility], | | | | | | [place] [address] | | | | + + + [...] noncontrast 11/22/2014 | | | performed at [facility] 10/14/2014 FINDINGS: An | | | [...] vertex. COMPARISON:CT head noncontrast 11/22/2014 performed at [facility]., | | 10/14/2014 FINDINGS:An extensive right-sided [...] EXTERNAL | | | | performed at [facility] | K/uL | LAB | | | | [address];[place], [place] | | | | | | [address] | | | | + + + + + + | RED CELL | 3.99 (L)Comment: Testing | 4.20 - 5.70 | EXTERNAL | | | COUNT | performed at [facility] | M/uL | LAB | | | | [address];[place] | | | | | | [address] | | | | + + + + + + | Hgb | 12.4 (L)Comment: Testing | 13.2 - 17.0 | EXTERNAL | | | | performed at [facility] | g/dL | LAB | | | | [address];[place] | | | | | | [address] | | | | + + + + + + | Hematocrit, | 37.9 (L)Comment: Testing | 39.0 - 50.0 % | EXTERNAL | | | POC | performed at [facility] | | LAB | | | | [address];[place] | | | | | | [address] | | | | + + + + + + | MCV | 95.2Comment: Testing | 80.0 - 100.0 fl | EXTERNAL | | | | performed at [facility] | | LAB | | | | [address];[place] | | | | | | [address] | | | | + + + + + + | MCH | 31.0Comment: Testing | 27.0 - 34.0 pg | EXTERNAL | | | | performed at [facility] | | LAB | | | | [address];[place] | | | | | | [address] | | | | + + + + + + | MCHC | 32.6Comment: Testing | 32.0 - 35.5 | EXTERNAL | | | | performed at [facility];[address] | g/dL | LAB | | | | [address];[place] | | | | | | [address] | | | | + + + + + + | RDW-CV | 48.1Comment: Testing | 37 - 53 fl | EXTERNAL | | | | performed at [facility];[address] | | LAB | | | | [address];[place] | | | | | | [address] | | | | + + + + + + | Platelet | 165Comment: Testing | 150 - 400 K/uL | EXTERNAL | | | Count | performed at [facility];[address] | | LAB | | | Plasma | [address];[place] | | | | | | [address] | | | | + + + + + + | MPV | 9.5Comment: Testing | fl | EXTERNAL | | | | performed at [facility];[address] | | LAB | | | | [address];[place] | | | | | | [address] | | | | + + + + + + | Differentia | AUTOMATEDComment: | | EXTERNAL | | | l Type | Testing performed at | | LAB | | | | [facility];[address];[place] [address] | | | | + + + + + + | % Segmented | 79.71Comment: Testing | % | EXTERNAL | | | | performed at [facility] [place] | | LAB | | | Neutrophils | [address];[place] | | | | | | [address] | | | | + + + + + + | % | 12.56Comment: Testing | % | EXTERNAL | | | Lymphocytes | performed at [facility] | | LAB | | | | [address];[place] | | | | | | [address] | | | | + + + + + + | % Monocytes | 6.71Comment: Testing | % | EXTERNAL | | | | performed at [facility] [place] | | LAB | | | | [address];[place] | | | | | | [address] | | | | + + + + + + | % | 0.69Comment: Testing | % | EXTERNAL | | | Eosinophils | performed at [facility] [place] | | LAB | | | | [address];[place] | | | | | | [address] | | | | + + + + + + | % Basophils | 0.33Comment: Testing | % | EXTERNAL | | | | performed at [facility] [place] | | LAB | | | | [address];[place] | | | | | | [address] | | | | + + + + + + | Absolute | 7.64 (H)Comment: Testing | 1.90 - 7.40 | EXTERNAL | | | Segmented | performed at [facility] [place] | K/uL | LAB | | | Neutrophils | [address];[place] | | | | | | [address] | | | | + + + + + + | Absolute | 1.20Comment: Testing | 1.00 - 3.90 | EXTERNAL | | | Lymphocytes | performed at [facility] [place] | K/uL | LAB | | | | [address];[place] | | | | | | [address] | | | | + + + + + + | Absolute | 0.64Comment: Testing | 0.00 - 0.80 | EXTERNAL | | | Monocytes | performed at [facility] | K/uL | LAB | | | | [address];[place] | | | | | | [address] | | | | + + + + + + | Absolute | 0.07Comment: Testing | 0.00 - 0.50 | EXTERNAL | | | Eosinophils | performed at [facility] | K/uL | LAB | | | | [address];[place] | | | | | | [address] | | | | + + + + + + | Absolute | 0.03Comment: Testing | 0.00 - 0.10 | EXTERNAL | | | Basophils | performed at [facility] [place] | K/uL | LAB | | | | [address];[place] | | | | | | [address] | | | | + + + [...] EXTERNAL | | | | performed at [facility] | mmol/L | LAB | | | | [address];[place] | | | | | | [address] | | | | + + + + + + | K | 4.0Comment: Testing | 3.5 - 4.9 | EXTERNAL | | | | performed at [facility] [place] | mmol/L | LAB | | | | [address];[place] | | | | | | [address] | | | | + + + + + + | Cl | 105Comment: Testing | 99 - 109 mmol/L | EXTERNAL | | | | performed at [facility] | | LAB | | | | [address];[place] | | | | | | [address] | | | | + + + + + + | CO2 | 25Comment: Testing | 23 - 32 mmol/L | EXTERNAL | | | | performed at [facility] | | LAB | | | | [address];[place] | | | | | | [address] | | | | + + + + + + | Anion Gap | 12Comment: Testing | 5 - 20 mmol/L | EXTERNAL | | | | performed at [facility] [place] | | LAB | | | | [address];[place] | | | | | | [address] | | | | + + + + + + | Glucose, | 114 (H)Comment: Testing | 65 - 99 mg/dL | EXTERNAL | | | Fasting | performed at [facility] [place] | | LAB | | | | [address];[place] | | | | | | [address] | | | | + + + + + + | BUN | 4 (L)Comment: Testing | 8 - 25 mg/dL | EXTERNAL | | | | performed at [facility] | | LAB | | | | [address];[place] | | | | | | [address] | | | | + + + + + + | Creatinine | 0.73Comment: Testing | 0.70 - 1.30 | EXTERNAL | | | | performed at [facility] | mg/dL | LAB | | | | [address];[place] | | | | | | [address] | | | | + + + + + + | BUN/Creatin | 5Comment: Testing | | EXTERNAL | | | ine Ratio | performed at [facility] | | LAB | | | | [address];[place] | | | | | | [address] | | | | + + + + + + | Calcium | 8.3 (L)Comment: Testing | 8.5 - 10.5 | EXTERNAL | | | | performed at [facility] | mg/dL | LAB | | | | [address];[place] | | | | | | [address] | | | | + + + + + + | Protein, | 7.7Comment: Testing | 6.3 - 8.2 g/dL | EXTERNAL | | | Total | performed at [facility] | | LAB | | | | [address];[place] | | | | | | [address] | | | | + + + + + + | Albumin | 3.3 (L)Comment: Testing | 3.6 - 5.0 g/dL | EXTERNAL | | | | performed at [facility] | | LAB | | | | [address];[place] | | | | | | [address] | | | | + + + + + + | Globulin | 4.4Comment: Testing | 1.3 - 4.9 g/dL | EXTERNAL | | | | performed at [facility] | | LAB | | | | [address];[place] | | | | | | [address] | | | | + + + + + + | A/G Ratio | 0.7 (L)Comment: Testing | 1.0 - 2.4 | EXTERNAL | | | | performed at [facility] | | LAB | | | | [address];[place] | | | | | | [address] | | | | + + + + + + | Bilirubin | 0.3Comment: Testing | 0.1 - 1.5 mg/dL | EXTERNAL | | | Total | performed at [facility] | | LAB | | | | [address];[place] | | | | | | [address] | | | | + + + + + + | ALP, | 137 (H)Comment: Testing | 35 - 115 U/L | EXTERNAL | | | External | performed at [facility] | | LAB | | | | [address];[place] | | | | | | [address] | | | | + + + + + + | AST | 37Comment: Testing | 10 - 45 U/L | EXTERNAL | | | | performed at [facility] | | LAB | | | | [address];[place] | | | | | | [address] | | | | + + + + + + | ALT | 37Comment: Testing | 10 - 65 U/L | EXTERNAL | | | | performed at [facility];[address] | | LAB | | | | [address];[place], [place] | | | | | | [address] | | | | + + + [...] | | | | | | at [facility];[address] [facility] | | | | | | Blvd;[place] [address] | | | | + + + [...]
--- OUTSIDE RECORDS SUMMARY | ~2019-08-24 | XMS | Encounter Summary ---
Demographics + + + | Address | [address] | | | [place] [address] | + + + | Home Phone [...] + +------+ + | Care Director Of Plant Operations Name | Role | Phone | + +------+ + PCP | Unavailable | + +------+ + Encounter Details +--------+ + + + + | Date | Type | Department | Care Team | Description | +--------+ + + + + | 05/24/ | Hospital | [facility] | Conversion | Pain | | 2015 | Encounter | CONVERSION [address] | Transaction, | | | | | [address] | Provider Unknown | | | | | [place], [place] | [phone] | | | | | [address] | | | | | | [phone] | | | +--------+ + + + [...]
--- OUTSIDE RECORDS SUMMARY | ~2019-08-24 | XMS | Encounter Summary ---
Demographics + + + | Address | [address] | | | [place] [address] | + + + | Home Phone [...] Team Providers + +------+ + | Care Ross Lift Operator Name | Role | Phone | [...] Rd | | | | | Rd [place], [place] | [place], [place] | | | | | [address] | [address] | | | | | [phone] | | | +--------+ + + + [...]
--- OUTSIDE RECORDS SUMMARY | ~2019-08-24 | XMS | Encounter Summary ---
Demographics + + + | Address | [address] | | | [place] [address] | + + + | Home Phone [...] Team Providers + +------+ + | Care Apple Turner Name | Role | Phone | + +------+ + PCP | Unavailable | + +------+ + Encounter Details +--------+ + + + + | Date | Type | Department | Care Team | Description | +--------+ + + + + | 06/22/ | Hospital | [facility] | Sandip Hall MD | | | 2008 - | Encounter | [facility] | [address] | | | | | MED [address] [place] [address] S | [place] [address] | | | 06/23/ | | [address] | [phone] | | | 2008 | | [place], [place] | | | | | | [address] | Elizabeth Galan MD | | | | | [phone] | [address] | | | | | | [address] [place], | | | | | | [place] [address] | | | | | | [phone] | | +--------+ + + + + [...] MEDICAL HISTORY: The patient is a 48-year-old [place] with a long history of known liver cirrhosis, end-stage liver disease secondary to alcoholism and hepatitis B and history of drug abuse who came into the emergency department in [place] with hepatic encephalopathy, having been at the [facility] visiting with his grandmother, found to [...] needs to get back one to his [facility] clinic and to return to his grandmother. [...] and was discharged to return to his [facility] clinic, which he promises me [...] time until cleared by his primary care giver. I spent 46 minutes seeing patient, coordinating discharge, and attempting to counseling program leader him into staying. _ TOBIN JAVIER MD D: Yoselyn Jun 23 16:37:54 2008 EST T: Yoselyn Jun 23 23:55:09 2008 EST Authenticated by Tobin Javire MD On 06/24/2009 06:22:[facility] - 06/23/2009 12:00 AM PDT documented in this enc ounter Progress Notes ONSARAH SCAN [facility] - 06/24/2009 12:00 AM PDT [facility] - 06/24/2009 12:00 AM PDT [facility] SCAN [facility] - 06/24/2009 12:00 AM PDT documented [...] mild bony spurring in the AC joint. [facility] EXAM NUMBER: | | | [id number] CHEST 1V [id number] | | + + + + + [...] spurring in the AC joint. | | [facility] EXAM NUMBER: [id number] CHEST 1V [id number] | | IMPRESSION: | | IMPRESSION: No [...]
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
--- OUTSIDE RECORDS SUMMARY | ~2019-08-24 | XMS | Encounter Summary ---
Demographics + + + | Address | [address] | | | [place] [address] | + + + | Home Phone [...] Team Providers + +------+ + | Care Radiology Interventional Physician Name | Role | Phone | + +------+ + PCP | Unavailable | + +------+ + Encounter Details +--------+ + + + + | Date | Type | Department | Care Team | Description | +--------+ + + + + | 11/12/ | Hospital | [facility] | Rodo Draper, | | | 2008 - | Encounter | MED CTR ICU [address] | [address] [facility] | | | | | [place], | [place], [place] | | | 11/17/ | | [place] [address] | [address] | | | 2008 | | [phone] | [phone] | | | | | | | [...]
--- OUTSIDE RECORDS SUMMARY | ~2019-08-24 | XMS | Encounter Summary ---
Demographics + + + | Address | [address] | | | [place] [address] | + + + | Home Phone [...] Team Providers + +------+ + | Care Carton Wrapper Name | Role | Phone | [...] review) | | | | [facility] | [facility] | | | | | [place], [place] | [place], [place] | | | | | [address] | [address] | | | | | [phone] | | | +--------+ + + + [...]
--- OUTSIDE RECORDS SUMMARY | ~2019-08-24 | XMS | Encounter Summary ---
Demographics + + + | Address | [address] | | | [place] [address] | + + + | Home Phone [...] Providers + +------+ + | Care Credit Charge Authorizer Name | Role | Phone | + [...] | | | | Dy[place] De Paz [place], | | | | | | [place] [address] | | | +--------+ + + + [...] | | Patient: EVANS ASTORGA Med Rec: [id number] Sex M Bdate: 1960 | | Date/Time Data | | Entered Into [facility] | | Anesth PostOp | | Surgery Date [id number] 02/19/03 10:45 | | Anesthesiologist BARRETT HELLER 02/19/03 10:45 | | | + + documented in this encounter Visit Diagnoses Not on filedocumented in this encounter"
--- OUTSIDE RECORDS SUMMARY | ~2019-08-24 | XMS | Encounter Summary ---
Demographics + + + | Address | [address] | | | [place] [address] | + + + | Home Phone [...] Team Providers + +------+ + | Care Residence Hall Director Name | Role | Phone | [...] | | | | | | [place], [place] | | | | | | [address] | | | | | | [phone] | | | +--------+ + + + [...]
--- OUTSIDE RECORDS SUMMARY | ~2019-08-24 | XMS | Encounter Summary ---
Demographics + + + | Address | [address] | | | [place] [address] | + + + | Home Phone [...] Team Providers + +------+ + | Care Voice Instructor Name | Role | Phone | [...] (requested | | | | [place] [facility] | [facility] [address] | from Dr. Ennis's | | | | [place], [place] | [place], [place] | office) | | | | [address] | [address] | | | | | [phone] | | | +--------+ + + + [...]
--- OUTSIDE RECORDS SUMMARY | ~2019-08-24 | XMS | Encounter Summary ---
Demographics + + + | Address | [address] | | | [place] [address] | + + + | Home Phone [...] Providers + +------+ + | Care Manager Actuarial Name | Role | Phone | + [...] Branch | | | | | | [place], [place] | | | | | | [address] | | | | | | [phone] | | | +--------+ + + + [...]
--- OUTSIDE RECORDS SUMMARY | ~2019-08-24 | XMS | Encounter Summary ---
Demographics + + + | Address | [address] | | | [place] [address] | + + + | Home Phone | | + + + | Preferred Language | Unknown | + + + | Marital Status | Single | + + + | Hinduism Affiliation [...] Providers + +------+ + | Care Enterprise Software Engineer Name | Role | Phone | [...] + + | 09/23/ | Emergency | [facility] Emergency | | | | 2009 | | Department [address] | | | | | [address] | | | | | | [facility] | | | | | | [place], [place] | | | | | | [address] | | | | | | [phone] | | | +--------+ + + + [...]
--- OUTSIDE RECORDS SUMMARY | ~2019-08-24 | XMS | Encounter Summary ---
Demographics + + + | Address | [address] | | | [place] [address] | + + + | Home Phone [...] Team Providers + +------+ + | Care Applications Packager Name | Role | Phone | + +------+ + PCP | Unavailable | + +------+ + Encounter Details +--------+ + + + + | Date | Type | Department | Care Team | Description | +--------+ + + + + | 11/22/ | Hospital | [facility] | Conversion | Headache(784.0) | | 2015 | Encounter | CONVERSION [address] | Transaction, | | | | | [address] | Provider Unknown | | | | | [place], [place] | | | | | | [address] | (Fax) | | | | | [phone] | | | +--------+ + + + [...]
--- OUTSIDE RECORDS SUMMARY | ~2019-08-24 | XMS | Encounter Summary ---
Demographics + + + | Address | [address] | | | [place] [address] | + + + | Home Phone | | + + + | Preferred Language | Unknown | + + + | Marital Status | | + + + | Jainism Affiliation | Unknown | + + + | Race | Unknown | + + + | Ethnic Group | Unknown | + + + Author + + + | Author | [facility] | | | and [place] | + + + | Organization | [facility] | | | [...] Team Providers + +------+ + | Care Life Skills Coordinator Volunteer Name | Role | Phone | + [...] + + | 08/09/ | Hospital | [facility] | BeyRamiro stoll, | Alcoholism (HCC) | | 2015 - | Encounter | [facility] | [address] | (Primary Dx); | | | | [address] | [place] | Hypokalemia; | | 08/14/ | | [place], [place] [address] | [address] | Pyelonephritis; | | 2014 | | [phone] | [phone] | Sepsis, due to | | | | | | unspecified organism | | | | | | ([facility]); Falls, | | | | | | subsequent | | | | | | encounter; Sepsis, | | | | | | Gram negative ([facility]); | | | | | | Sepsis due to | | | | | | Escherichia coli (E. | | | | | | coli) ([facility]) | +--------+ + + + [...] West MD - 08/14/2015 10:35 AM PST [facility] DISCHARGE SUMMARY Pt. Name/Age/: Tony Ring [...] complete 14-day total course of therapy at [facility]. Vital signs, physical examination, and laboratory values were within appropriate limits at time of discharge. Patient discharged to SNF ([facility] in [place], [place]). Labs admission/discharge days: WBC 12.2 -> [...] He denies any other problems. Plans in [facility] for discharge back to [facility] today. Patient denies headache, fever, [...] 2 weeks. Specialty: Family Medicine Contact information: [address] [place] [address] Condition: Patient being discharged with condition improved. Diet: Regular Activity: as tolerated, but up with assistance only (high fall risk) Greater than 30 minutes were spent on discharge and coordination of post-hospital care. Electronically signed by: Marco Antonio West MD, 08/14/2015 10:35 [facility] documented in thi s encounter Discharge Instructions Instructions Marco nAtonio West MD - 08/14/2015Regular diet. Activity as tolerated. Up with assistance only (high fall risk). Follow-up with PCP Mason Oliveira DO in 2 weeks. AttachmentsThe following attachments cannot be sent through Care Everywhere.PERIPHERALLY IN SERTED CENTRAL CATHETER (PICC), DISCHARGE INSTRUCTIONS FOR CARING FOR YOUR (ZAMBIAN)document ed in this encounter Medications at Time [...] Brunson MD - 08/13/2015 4:59 PM PST [facility] PROGRESS NOTE Patient: Tony Sánchez : 1960: Age: 54 y.o. MedRec: [id number] Admission date: 08/09/2015 Hospital day # : [...] CKTOTAL No results for input(s): PHART, PO2ART, SIE3WVN, OYG1YAV, BEART, O7WGOWXI in the last 168 h ours. Point [...] stable 8) Dispo - likely back to [facility] 08/14 if they can accept back Marco Antonio West MD 08/13/2015 16:59 [facility] asch, Nae Baumann MD - 08/12/2015 1:29 PM PST [facility] HOSPITALIST PROGRESS NOTE PATIENT NAME: Tony Sánchez AGE: 54 y.o. DATE OF SERVICE: 08/12/2015 SUBJECTIVE: No new concerns. Called [facility], set up fax of results 08/11 final [...] this chart may have been created using [employer] voice recognition software. Occas ional wrong-word or "sound alike" substitutions may have occurred due to the inherent limita tions of voice recognition software. Please read chart carefully and recognize using context where these substitutions have occurred.Electronically signed by Nae Lala MD at 1:32 PM PSTRasch, Nae Baumann MD - 08/11/2015 4:25 PM PSTFormatting of this note mi ght be different from the original. [facility] HOSPITALIST PROGRESS NOTE PATIENT NAME: Tony [...] display. Plan: continue empiric antibiotics, call from [facility] with blood cx + gram neg josefina. aw aiting final for treatment plan and discharge planning DATE/TIME: 08/11/2015 16:25 SIGNED: Nae Lala MD Portions of this chart may have been created using [employer] voice recognition software. Occas ional wrong-word or "sound alike" substitutions may have occurred due to the inherent limita tions of voice recognition software. Please read chart carefully and recognize using context where these substitutions have occurred.Electronically signed by Nae Lala MD at 4:27 PM [facility], Nae Baumann MD - 08/10/2015 3:00 PM PSTFormatting of this note mi ght be different from the original. [facility] HOSPITALIST PROGRESS NOTE PATIENT NAME: Tony [...] display. Plan: continue empiric antibiotics, call from [facility] with blood cx + gram neg josefina. DATE/TIME: 08/10/2015 15:00 SIGNED: Nae Lala MD Portions of this chart may have been created using [employer] voice recognition software. Occas ional wrong-word or [...] [address] | [place] | [phone] | | [facility] | | [address] | | | - LABORATORY | | [...] [address] | [place] | [phone] | | [facility] | | [address] | | | - LABORATORY | | [...] mL/min/1.73m2 | [facility] | | | BULGARIAN | | | MEDICAL | | | [...] + | [facility] | [address] | [place] | [phone] | | [facility] | | [address] | | | - LABORATORY | | [...] [address] | [place] | [phone] | | [facility] | | [address] | | | - LABORATORY | | [...] | samples are screened | uIU/mL | [facility] | | | | using a 2nd [...] [address] | [place] | [phone] | | [facility] | | [address] | | | - LABORATORY | | [...] + | [facility] | [address] | [place] | [phone] | | [facility] | | [address] | | | - LABORATORY | | [...] [address] | [place] | [phone] | | [facility] | | [address] | | | - LABORATORY | | [...] [address] | [place] | [phone] | | [facility] | | [address] | | | - LABORATORY | | [...] [address] | [place] | [phone] | | [facility] | | [address] | | | - LABORATORY | | [...] + | [facility] | [address] | [place] | [phone] | | [facility] | | [address] | | | - LABORATORY | | [...] mL/min/1.73m2 | [facility] | | | BULGARIAN | RATE,ESTIMATED | | MEDICAL | | | | mL/min/1.94u9Svxv than | | CENTER - | | [...] [address] | [place] | [phone] | | [facility] | | [address] | | | - LABORATORY | | [...] [address] | [place] | [phone] | | [facility] | | [address] | | | - LABORATORY | | [...] mL/min/1.73m2 | [facility] | | | BULGARIAN | RATE,ESTIMATED | | MEDICAL | | | | mL/min/1.87i5Crjf than | | CENTER - | | [...] + | [facility] [facility] | [address] | [place] | [phone] | | [facility] | | [address] | | | - LABORATORY | | [...] | | | | | | [facility] | | | | [...] ST. | [address] | [place] | [phone] | | [facility] | | [address] | | | - LABORATORY | | [...] | mL/min/1.73m2 | NATAL[facility] | | | BULGARIAN | RATE,ESTIMATED | | MEDICAL | | | | mL/min/1.72k1Vgse than | | CENTER - | | [...] [address] | [place] | [phone] | | [facility] | | [address] | | | - LABORATORY | | [...] + | [facility] | [address] | [place] | [phone] | | [facility] | | [address] | | | - LABORATORY | | [...] mL/min/1.73m2 | [facility] | | | BULGARIAN | RATE,ESTIMATED | | MEDICAL | | | | mL/min/1.72a2Ipns than | | CENTER - | | [...] [address] | [place] | [phone] | | [facility] | | [address] | | | - LABORATORY | | [...] [address] | [place] | [phone] | | [facility] | | [address] | | | - LABORATORY | | [...] + | [facility] [facility] | [address] | [place] | [phone] | | [facility] | | [address] | | | - LABORATORY | | [...] - 1.030 | [facility] | | | [place] | | | [facility] | | [...] [address] | [place] | [phone] | | [facility] | | [address] | | | - LABORATORY | | [...] ST. | [address] | [place], [place] | [phone] | | [facility] | | [address] | | | - LABORATORY | | [...] [address] | [place] | [phone] | | [facility] | | [address] | | | - LABORATORY | | [...] + | [facility] | [address] | [place] | [phone] | | [facility] | | [address] | | | - LABORATORY | | [...] mL/min/1.73m2 | [facility] | | | BULGARIAN | RATE,ESTIMATED | | MEDICAL | | | | mL/min/1.99r9Jeas than | | CENTER - | | [...] ST. | [address] | [place] | [phone] | | [facility] | | [address] | | | - LABORATORY | | [...] [address] | [place] | [phone] | | [facility] | | [address] | | | - LABORATORY | | | | + + + + + documented in this encounter Visit Diagnoses + + | Diagnosis | + + | Sepsis due to Escherichia coli (E. coli) ([facility]) - Primary Other septicemia due to | | gram-negative organism | + + | Alcoholism ([facility]) Other and unspecified alcohol dependence, [...] | | | | | | use Fossil 10/325 if ordered. If | | | [...]
[~2019-08-24 04:59] MED LIST changes: +CEPHALEXIN500 MG PO; +MAXZIDE 37.5 MG-1 EA PO; +PREDNISONE20 MG PO; +ULTRAM50 MG PO
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
== END 2019-08-24 06:19 | disposition home or self-care (01) ==
LOC: ED 04:59
DX: G89.18 Other acute postprocedural pain (principal); M54.9 Dorsalgia, unspecified; E11.9 Type 2 diabetes mellitus without complications; Z88.0 Allergy status to penicillin
CPT/HCPCS: 99283

== ENCOUNTER 2019-09-09 17:37 | Emergency (ER) | payer OTHER ==
[~2019-09-09] VITALS: Ht 177.8 cm; Wt 124.7 kg
--- OUTSIDE RECORDS SUMMARY | ~2019-09-09 | XMS | Encounter Summary ---
Demographics + + + | Address | [address] | | | [place] [address] | + + + | Home Phone | | + + + | Preferred Language | Unknown | + + + | Marital Status | | + + + | Hindu Affiliation | Unknown | + + + | Race | Unknown | + + + | Ethnic Group | Unknown | + + + Author + + + | Author | [facility] | | | and [place] | + + + | Organization | [facility] | | | and [place] | + + + | Address | Unknown | + + + | Phone | Unavailable | + + + Support + + +---------+ + | Name | Relationship | Address | Phone | + + +---------+ + | Teressa Fortune | ECON | Unknown | + | + + +---------+ + | Jay Jay Edouardalberletitia | ECON | Unknown | + | + + +---------+ + | Teressa Edouardcharlene | ECON | Unknown | + | + + +---------+ + Care Team Providers + +------+ + | Care Public Housing Interviewer Name | Role | Phone | + +------+ + PCP | Unavailable | + +------+ + Encounter Details +--------+ + + + + | Date | Type | Department | Care Team | Description | +--------+ + + + + | 09/04/ | Hospital | [facility] | Conversion | Pain | | 2014 | Encounter | CONVERSION [address] | Transaction, | | | | | [address] | Provider Unknown | | | | | [place], [place] | [phone] | | | | | [address] | | | | | | [phone] | | | +--------+ + + + [...] | + +--------+ + + + | XR CHEST 1 VIEW | Routin | 09/11/2009 | | Results for this | | | e | 5:40 AM | | procedure are in the | | | | PST | | results section. | + +--------+ + + + documented in this encounter Results XR Chest 1 Vw (09/11/2009 5:40 AM PST) + + | Specimen | + + | | + + + + + | Narrative | Performed At | + + + | This is a non-reportable procedure without a radiologist report and | | | is used for image storage only | | + + + + + | Procedure Note | + + | Marlon Santamaria Myrna - 05/06/2019 1:15 AM PDT This is a non-reportable procedure | | without a radiologist report and isused for image storage only | + + documented in this encounter Visit Diagnoses + + | Diagnosis | + + | Pain Generalized pain | + + documented in this encounter"
--- OUTSIDE RECORDS SUMMARY | ~2019-09-09 | XMS | Encounter Summary ---
Demographics + + + | Address | [address] | | | [place] [address] | + + + | Home Phone | | + + + | Preferred Language | Unknown | + + + | Marital Status | | + + + | Jainism Affiliation | Unknown | + + + | Race | Unknown | + + + | Ethnic Group | Unknown | + + + Author + + + | Author | [facility] | | | and [place] | + + + | Organization | [facility] | | | and [place] | + + + | Address | Unknown | + + + | Phone | Unavailable | + + + Support + + +---------+ + | Name | Relationship | Address | Phone | + + +---------+ + | Teressa Fortune | ECON | Unknown | + | + + +---------+ + | Jay Jay Edouardcharlene | ECON | Unknown | + | + + +---------+ + | Teressa Edouardcharlene | ECON | Unknown | + | + + +---------+ + Care Team Providers + +------+ + | Care Video Game Repair Technician Name | Role | Phone | + +------+ + PCP | Unavailable | + +------+ + Encounter Details +--------+ + + + + | Date | Type | Department | Care Team | Description | +--------+ + + + + | 08/30/ | Hospital [facility] | | | [facility] | Encounter | MED CTR GENERIC OP | | | | | | CONV DEPT [address] | | | | | | [place], | | | | | | [place] [address] | | | | | | [phone] | | | +--------+ + + + [...]
--- OUTSIDE RECORDS SUMMARY | ~2019-09-09 | XMS | Encounter Summary ---
Demographics + + + | Address | [address] | | | [place] [address] | + + + | Home Phone | | + + + | Preferred Language | Unknown | + + + | Marital Status | Single | + + + | Voodoo Affiliation | Unknown | + + + [...] Team Providers + +------+ + | Care Chimney Supervisor Brick Name | Role | Phone | + +------+ + PCP | Unavailable | + +------+ + Encounter Details +--------+ + + + + | Date | Type | Department | Care Team | Description | +--------+ + + + + | 03/25/ | Abstract | [facility] | Azeem Dietrich | | | 2010 | | [place] [address] [address] | | | | | [address] | [place], [place] | | | | | Mailcode: [id number] | [address] | | | | | [facility] | [phone] | | | | | and [address], | | | | | | [address] | | | | | | [place], [place] | | | | | | [address] | | | | | | [phone] | | | +--------+ + + + [...]
--- OUTSIDE RECORDS SUMMARY | ~2019-09-09 | XMS | Encounter Summary ---
Demographics + + + | Address | [address] | | | [place] [address] | + + + | Home Phone | | + + + | Preferred Language | Unknown | + + + | Marital Status | Single | + + + | Yazidi Affiliation | Unknown | + + + | Race | White | + + + | Ethnic Group | Not or | + + + Author + + + | Author | [facility] | + + + | Organization | [facility] | + + + | [...] Team Providers + +------+ + | Care Breakfast Server Name | Role | Phone | + +------+ + | Anny Ennis DO | PCP | Unavailable | + +------+ + Reason for Visit + + + | Reason | Comments | + + + | New patient | Cirrhosis | | consultation | | + + + Consultation (Routine) +--------+--------+ + + + + | Status | Reason | Specialty | Diagnoses / | Referred By | Referred To | | | | | Procedures | Contact | Contact | +--------+--------+ + + + + | Closed | | Hepatology | Diagnoses | Karlo | Papi | | | | | Hepatitis B | Azeem Robles, | Hepatology | | | | | | MD [address] | [address] | | | | | | [address] | | | | | | [facility] [place] | Mailcode: | | | | | | [address] | [facility] | | | | | | Phone: | for Health | | | | | | [phone] | and Healing, | | | | | | Fax: | Building [address] | | | | | | [phone] | [place], [place] | | | | | | | [address] | | | | | | | Phone: | | | | | | | [phone] | | | | | | | Fax: | | | | | | | [phone] | +--------+--------+ + + + + Encounter Details +--------+---------+ + + + | Date | Type | Department | Care Team | Description | +--------+---------+ + + + | 03/13/ | Office | Dig[facility]ive [facility] | Azeem Dietrich | Cirrhosis (HCC); | | 2009 | Visit | [facility] [address] | E, MD [address] | Esophageal varices | | | | [address] | Ave [place], [place] | (HCC) | | | | Mailcode: [facility] | [address] | | | | | [facility] | [phone] | | | | | and [address], | | | | | | [address] | | | | | | [place], [place] | | | | | | [address] | | | | | | [phone] | | | +--------+---------+ + + + [...] + + + documented in this encounter Progress Notes Azeem Dietrich MD - 03/13/2010 11:01 AM PDTFormatting of this note might be differen t from the original. Referring provider: Dr. Anny Ennis Reason for referral: Evaluation and management of cirrhosis HPI: 49 y/o male was doing well until 10/2008 when he started vomiting blood, was found to have a variceal bleed, got banding at that time. I'm not sure I got the history correct, a s the patient was a little confused about this himself, but it sounds like he got quite juan litated last year, was in a wheelchair, doing a lot of shaking, all of which has improved. He was hospitalized twice (Jun and Aug 2009) for what sounds like hepatic encephalopathy, an d at least one of these times this may have been precipitated by narcotics (he had been on d ilaudid 8 mg every 4 hours). He tells me that he's never had a needle stuck in his belly to drain fluid, but it does sound like he's had some significant volume overload, and is on di uretics. The patient says that he does not think he has (or had) a drinking problem (but his mother thinks he may have had one). He was a heavy drinker, but says that he stopped completely a fter the variceal bleed (no rehab, no ongoing support). He did attend an "alcohol clinic" a fter he was arrested for public intoxication in the last couple of years. Past Medical History Diagnosis Date Cirrhosis Alcohol abuse Esophageal varices Encephalopathy, hepatic PSH None Meds (from 11/25/[address] 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 ROS: Gen: No malaise, moderate fatigue, no chills, no fevers Eyes: No double vision, no yellowness Mouth: No pain on swallowing, no sores, no sticking of food Resp: No shortness of breath, no cough CV: No CP, no palpitations Abd: No constipation, no diarrhea, no black or red stools, no nausea/vomiting Ext: Mild swelling of legs, no joint pains : No pain on urination or increased frequency of urination Neuro: No new weakness, tingling, or confusion Psych: No depression, no anxiety All other systems otherwise negative PE Filed Vitals: 03/13/2010 8:35 AM Height: 1.765 m (5' 9.5") Weight: 120.203 kg (265 lb) BP: 104/65 Pulse: 97 Temp: 36.6 C (97.8 F) TempSrc: Oral Resp: 16 PainSc: 0 - Zero Gen: Pleasant male in NAD, speaking clearly HEENT: No scleral icterus; no lesions OP/OC Neck: Supple, no BIJAN CV: Reg S1S2, no m/r/g Pulm: Clear B Abd: Soft, NT, obese, +BS all quads; no masses; no shifting dullness Ext: Trace LE edema Skin: No spider angiomata Neuro: No asterixis Lab Date: 11/25/2009 Na 134 Creat 1.03 Ast 31 Alt 23 ALP 91 Tbili 0.8 WBC 6.6 Hct 31 Plt 153 INR 1.2 HBV Undetectable Summary Diagnoses 1. Cirrhosis, likely due to alcohol 1.1 History of volume overload, on diuretics 1.2 Two episodes of hepatic encephalopathy 06/2009 and 08/2009, possibly precipitated by na rcotics 1.3 Variceal bleed 10/2008 with banding 1.4 Needs HCC surveillance scan 2. Alcohol abuse, abstinent since 10/2008 per patient, no rehab or ongoing recovery support 3. LBP, previously on high-dose narcotics, now off 4. Obesity, BMI = 38 5. Hypothyroidism Impression Mr. Tony Sánchez is a 49 y.o. y.o. year old male who is referred for shari luation and management of cirrhosis. I do not have an extensive w/u as to the cause of his cirrhosis, but it is very likely to be from alcohol. This really makes sense with the hist ory of a variceal bleed, greatly debilitated but now better since stopping alcohol. He like ly had some degree of alcoholic hepatitis, but his most recent labs from 11/2009 show that hi s liver function is absolutely normal now. Thus, I think that the problems with hepatic enc ephalopathy and volume overload may have also resolved to the point where a trial off these medications (neomycin, diuretics) might be reasonable. He needs another EGD to see if furth er banding needs to be done (the varices should be banded to eradication), and he should be on a non-selective beta leona (like propranolol or nadolol) with a goal HR of < 60. As we ll, he needs 6 monthly surveillance for liver cancer (HCC), which I think can be an ultrasou nd, and should probably be done soon. Concerning transplant, he is much too early. His liver function is normal, and I think shane t the troubles he's had from his liver are getting better as the patient gets further and fu rther from his last drink. Should he ever progress to the point where we need to evaluate h im for transplant, I perceive 2 main difficulties in getting him listed for transplant here, (1) the likelihood that he has an alcohol problem and would need more treatment and an ongo ing recovery support system, and (2) his weight--he would need to get down to a BMI of less than 37 at a minimum. Recommendations: 1. Too early for liver transplant evaluation at this time 2. Trial of stopping neomycin, diminishing diuretics slowly 3. Needs EGD(s) to band varices to eradication 4. Needs to be on non-selective beta leona (start propranolol 20 bid or nadolol 40 mg bid ) with goal of getting HR < 60 5. Needs 6 monthly scans (U/S) for HCC surveillance 6. Continue complete abstinence from alcohol 7. RTC 6 months for check up documented in th is encounter Plan of Treatment Not on filedocumented as of this encounter Results IRON AND TIBC, SERUM (03/13/2010 9:50 AM PDT) + +-------+ + + + | Component | Value | Ref Range | Performed | Pathologist | | | | | At | Signature | + +-------+ + + + | IRON SERUM | 73 | 40 - 150 ug/dL | [facility] | | | | | | [facility] | | | | | | LABORATORY | | + +-------+ + + + | IRON BIND | 314 | 225 - 410 ug/dL | [facility] | | | CAP SERUM | | | REGIONAL | | | | | | LABORATORY | | + +-------+ + + + | % | 23 | 20 - 50 % | [facility] | | | SATURATION | | | REGIONAL | | | TRANSFERRIN | | | LABORATORY | | | , SERUM | | | | | + +-------+ + + + + + | Specimen | + + | Blood - Blood | + + + + + | Narrative | Performed At | + + + | Reference Range Change effective 10/16/08 | [facility] | | [facility] | REGIONAL | | [place] [address] [facility] | LABORATORY | | [place] [address] | | + + + + + + + + | Performing | Address | City/State/Zipcode | Phone Number | | Organization | | | | + + + + + | [facility] | [address] | [place] [address] | | | LABORATORY | | | | + + + + + FERRITIN, SERUM (03/13/2010 9:50 AM PDT) + + + + + + | Component | Value | Ref Range | Performed | Pathologist | | | | | At | Signature | + + + + + + | FERRITIN | 247Comment: Ferritin | 18 - 460 ng/mL | [facility] | | | | reference intervals | | REGIONAL | | | | based on study performed | | LABORATORY | | | | at [facility], | | | | | | [place], [place]. | | | | + + + + + + + + | Specimen | + + | Blood - Blood | + + + + + | Narrative | Performed At | + + + | [facility] | [facility] | | [facility] [address] | REGIONAL | | [place] [address] | LABORATORY | + + + + + + + + | Performing | Address | City/State/Zipcode | Phone Number | | Organization | | | | + + + + + | [facility] | [address] | [place] [address] | | | LABORATORY | | | | + + + + + ETHYL GLUCURONIDE, URINE (03/13/2010 9:50 AM PDT) + + + + + + | Component | Value | Ref Range | Performed | Pathologist | | | | | At | Signature | + + + + + + | ETHYL | None DetectedComment: | ng/mL | | | | GLUCURONIDE | Any value greater than | | | | | , URINE | 250 ng/mL indicates | | | | | | Ethanol consumption. | | | | | | Consumption of 20 to | | | | | | 33 fl. oz. of beer: | | | | | | (4.2% w/v) resulted in | | | | | | urinary Ethyl | | | | | | Glucuronide | | | | | | concentrations of | | | | | | 22,000 to 67,000 ng/mL | | | | | | at 3 hours. This test | | | | | | was developed and | | | | | | validated by [facility]. | | | | | | Test performed by: | | | | | | [facility] | | | | | | Services [address] [place] [address] | | | | | | [place] | | | | | | [address] | | | | + + + + + + + + | Specimen | + + | Urine - Urine | + + + + + + + | Performing | Address | City/State/Zipcode | Phone Number | | Organization | | | | + + + + + | [facility] | [address] | [place], [place] | | | [facility] | | [address] | | + + + + + HEPATITIS B SURFACE AG, SERUM (03/13/2010 9:50 AM PDT) + + + + + + | Component | Value | Ref Range | Performed | Pathologist | | | | | At | Signature | + + + + + + | HEPATITIS B | Negative | Negative | [facility] | | | SURFACE | | | REGIONAL | | | AG, SERUM | | | LABORATORY | | + + + + + + + + | Specimen | + + | Blood - Blood | + + + + + | Narrative | Performed At | + + + | [facility] | [facility] | | [place] [address] | REGIONAL | | [place] [address] | LABORATORY | + + + + + + + + | Performing | Address | City/State/Zipcode | Phone Number | | Organization | | | | + + + + + | [facility] | [address] | [place] [address] | | | LABORATORY | | | | + + + + + HEPATITIS B CORE AB, SERUM (03/13/2010 9:50 AM PDT) + + + + + + | Component | Value | Ref Range | Performed | Pathologist | | | | | At | Signature | + + + + + + | HEPATITIS B | POSITIVE (A) | Negative | [facility] | | | CORE AB, | | | REGIONAL | | | SERUM | | | LABORATORY | | + + + + + + + + | Specimen | + + | Blood - Blood | + + + + + | Narrative | Performed At | + + + | [facility] | [facility] | | [place] [address] [address] [facility] | REGIONAL | | [place] [address] | LABORATORY | + + + + + + + + | Performing | Address | City/State/Zipcode | Phone Number | | Organization | | | | + + + + + | [facility] | [address] [facility] | [place] [address] | | | LABORATORY | | | | + + + + + HEPATITIS C AB, SERUM (03/13/2010 9:50 AM PDT) + + + + + + | Component | Value | Ref Range | Performed | Pathologist | | | | | At | Signature | + + + + + + | HEPATITIS C | Negative | Negative | [facility] | | | AB | | | REGIONAL | | | | | | LABORATORY | | + + + + + + + + | Specimen | + + | Blood - Blood | + + + + + | Narrative | Performed At | + + + | [facility] | [facility] | | [place] [address] [facility] | REGIONAL | | [place] [address] | LABORATORY | + + + + + + + + | Performing | Address | City/State/Zipcode | Phone Number | | Organization | | | | + + + + + | [facility] | [address] | [place] [address] | | | LABORATORY | | | | + + + + + BILE ACIDS, TOTAL (03/13/2010 9:50 AM PDT) + + + + + + | Component | Value | Ref Range | Performed | Pathologist | | | | | At | Signature | + + + + + + | BILE ACIDS, | 87.0 (H)Comment: TEST | <10.1 umol/L | | | | TOTAL | INFORMATION: Bile Acids, | | | | | | TotalReference Interval | | | | | | applies to fasting | | | | | | specimens.Performed by | | | | | | [employer], | | | | | | | | | | | | [address] [facility] | | | | | | [place] [facility] [address] | | | | | | [phone] | | | | | | | | | | | | www.[employer], | | | | | | aMgui Lopez MD - | | | | | | Lab. Director | | | | + + + + + + + + | Specimen | + + | Blood - Blood | + + + + + + + | Performing | Address | City/State/Zipcode | Phone Number | | Organization | | | | + + + + + | [facility] | [address] | [place], [place] | | | [facility] | | [address] | | + + + + + ALPHA-FETOPROTEIN TUMOR MARKER, SERUM (03/13/2010 9:50 AM PDT) + +-------+ + + + | Component | Value | Ref Range | Performed | Pathologist | | | | | At | Signature | + +-------+ + + + | AFP, TUMOR | 9 | ng/mL | [facility] | | | MARKER, | | | DEPARTMENT | | | SERUM | | | OF | | | | | | PATHOLOGY | | + +-------+ + + + + + | Specimen | + + | Blood - Blood | + + + + + | Narrative | Performed At | + + + | [facility] | [facility] | | [place] [address] [address] [facility] | DEPARTMENT OF | | [place] [address] | PATHOLOGY | + + + + + + + + | Performing | Address | City/State/Zipcode | Phone Number | | Organization | | | | + + + + + | [facility] DEPARTMENT OF | [address] | [place] [address] | | | PATHOLOGY | [address] | | | + + + + + CBC ONLY (03/13/2010 9:50 AM PDT) + + + + + + | Component | Value | Ref Range | Performed | Pathologist | | | | | At | Signature | + + + + + + | WHITE CELL | 17.6 (H) | 4.4 - 11.0 K/cu | [facility] | | | COUNT | | mm | DEPARTMENT | | | | | | OF | | | | | | PATHOLOGY | | + + + + + + | RED CELL | 3.62 (L) | 4.50 - 5.90 | [facility] | | | COUNT | | M/cu mm | DEPARTMENT | | | | | | OF | | | | | | PATHOLOGY | | + + + + + + | HEMOGLOBIN | 12.7 (L) | 13.5 - 17.5 | [facility] | | | | | g/dL | DEPARTMENT | | | | | | OF | | | | | | PATHOLOGY | | + + + + + + | HEMATOCRIT | 36.1 (L) | 41.0 - 53.0 % | [facility] | | | | | | DEPARTMENT | | | | | | OF | | | | | | PATHOLOGY | | + + + + + + | MCV | 99.8 (H) | 80.0 - 96.0 fL | [facility] | | | | | | DEPARTMENT | | | | | | OF | | | | | | PATHOLOGY | | + + + + + + | MCHC | 35.2 | 33.4 - 35.5 | [facility] | | | | | g/dL | DEPARTMENT | | | | | | OF | | | | | | PATHOLOGY | | + + + + + + | RDW | 14.0 | 11.5 - 15.0 % | [facility] | | | | | | DEPARTMENT | | | | | | OF | | | | | | PATHOLOGY | | + + + + + + | PLATELET | 219 | 150 - 400 K/cu | [facility] | | | COUNT | | mm | DEPARTMENT | | | | | | OF | | | | | | PATHOLOGY | | + + + + + + + + | Specimen | + + | Blood - Blood | + + + + + + + | Performing | Address | City/State/Zipcode | Phone Number | | Organization | | | | + + + + + | [facility] DEPARTMENT OF | [address] | [place] [address] | | | PATHOLOGY | [address] | | | + + + + + INR (03/13/2010 9:50 AM PDT) + + + + + + | Component | Value | Ref Range | Performed | Pathologist | | | | | At | Signature | + + + + + + | INR | 1.19Comment: | 0.90 - 1.20 INR | [facility] | | | | INR Therapeutic ranges | | DEPARTMENT | | | | for full | | OF | | | | anticoagulation: | | PATHOLOGY | | | | INR for Venous | | | | | | Thromboembolism | | | | | | (2.0-3.0) | | | | | | INR INR for most | | | | | | patients with mech. | | | | | | valves (2.5-3.5) | | | | | | INR | | | | + + + + + + + + | Specimen | + + | Blood - Blood | + + + + + + + | Performing | Address | City/State/Zipcode | Phone Number | | Organization | | | | + + + + + | [facility] | [address] | [place] [address] | | | PATHOLOGY | [address] | | | + + + + + COMPLETE METABOLIC SET (NA,K,CL,CO2,BUN,CREAT,GLUC,CA,AST,ALT,BILI TOTAL,ALK PHOS,ALB,PROT TOTAL) (03/13/2010 9:50 AM PDT) + + + + + + | Component | Value | Ref Range | Performed | Pathologist | | | | | At | Signature | + + + + + + | GLUCOSE, | 113 (H) | 60 - 99 mg/dL | [facility] | | | PLASMA | | | DEPARTMENT | | | (LAB) | | | OF | | | | | | PATHOLOGY | | + + + + + + | BUN, PLASMA | 9 | 6 - 20 mg/dL | [facility] | | | (LAB) | | | DEPARTMENT | | | | | | OF | | | | | | PATHOLOGY | | + + + + + + | CREATININE | 1.09 | 0.70 - 1.30 | [facility] | | | PLASMA | | mg/dL | DEPARTMENT | | | (LAB) | | | OF | | | | | | PATHOLOGY | | + + + + + + | TOTAL | 7.2 | 6.1 - 7.9 g/dL | [facility] | | | PROTEIN, | | | DEPARTMENT | | | PLASMA | | | OF | | | (LAB) | | | PATHOLOGY | | + + + + + + | ALBUMIN, | 2.8 (L) | 3.5 - 4.7 g/dL | [facility] | | | PLASMA | | | DEPARTMENT | | | (LAB) | | | OF | | | | | | PATHOLOGY | | + + + + + + | CALCIUM, | 8.5 (L) | 8.6 - 10.2 | [facility] | | | PLASMA | | mg/dL | DEPARTMENT | | | (LAB) | | | OF | | | | | | PATHOLOGY | | + + + + + + | BILIRUBIN | 0.8 | 0.3 - 1.2 mg/dL | [facility] | | | TOTAL | | | DEPARTMENT | | | | | | OF | | | | | | PATHOLOGY | | + + + + + + | ALK PHOS | 108 | 53 - 128 U/L | [facility] | | | | | | DEPARTMENT | | | | | | OF | | | | | | PATHOLOGY | | + + + + + + | AST(SGOT) | 33 | 15 - 41 U/L | [facility] | | | | | | DEPARTMENT | | | | | | OF | | | | | | PATHOLOGY | | + + + + + + | SODIUM, | 127 (L) | 134 - 143 | [facility] | | | PLASMA | | mmol/L | DEPARTMENT | | | (LAB) | | | OF | | | | | | PATHOLOGY | | + + + + + + | POTASSIUM, | 3.1 (L) | 3.4 - 5.0 | [facility] | | | PLASMA | | mmol/L | DEPARTMENT | | | (LAB) | | | OF | | | | | | PATHOLOGY | | + + + + + + | CHLORIDE, | 89 (L) | 97 - 108 mmol/L | [facility] | | | PLASMA | | | DEPARTMENT | | | (LAB) | | | OF | | | | | | PATHOLOGY | | + + + + + + | TOTAL CO2, | 29 | 23 - 31 mmol/L | [facility] | | | PLASMA | | | DEPARTMENT | | | (LAB) | | | OF | | | | | | PATHOLOGY | | + + + + + + | ALT (SGPT) | 23 | 13 - 48 U/L | [facility] | | | | | | DEPARTMENT | | | | | | OF | | | | | | PATHOLOGY | | + + + + + + | EGFR | > 60 | >60 mL/min | [facility] | | | - | | | DEPARTMENT | | | [facility] | | | OF | | | | | | PATHOLOGY | | + + + + + + | EGFR NON | > 60Comment: GFR is | >60 mL/min | [facility] | | | -MADELINE | estimated using the MDRD | | DEPARTMENT | | | RICAN | equation recommended by | | OF | | | | theNational Kidney | | PATHOLOGY | | | | Disease Education | | | | | | Program. Estimated GFR | | | | | | Interpretive | | | | | | Information: <60 | | | | | | mL/min/1.73 sq m | | | | | | Chronic Kidney Disease | | | | | | <15 mL/min/1.73 sq m | | | | | | Kidney Failure | | | | | | Estimated GFR greater | | | | | | than 60mL/min/1.73 is of | | | | | | limited clinical Value. | | | | | | The MDRD equation is | | | | | | not valid in the | | | | | | following situations: - | | | | | | Patients under 18 years | | | | | | of age - Severe | | | | | | malnutrition or obesity | | | | | | - Vegetarian diet - | | | | | | Rapidly changing kidney | | | | | | function | | | | + + + + + + + + | Specimen | + + | Blood - Blood | + + + + + + + | Performing | Address | City/State/Zipcode | Phone Number | | Organization | | | | + + + + + | [facility] | [address] | [place] [address] | | | PATHOLOGY | [address] | | | + + + + + documented in this encounter Visit Diagnoses + + | Diagnosis | + + | Cirrhosis (HCC) Cirrhosis of liver without mention of alcohol | + + | Esophageal varices (HCC) Esophageal varices without mention of bleeding | + + documented in this encounter
--- OUTSIDE RECORDS SUMMARY | ~2019-09-09 | XMS | Encounter Summary ---
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 [place] | Mailcode: | | | | | | [address] | [facility] | | | | | | Phone: | for Health | | | | | | [phone] | and Healing, | | | | | | Fax: | [address] | | | | | | [phone] | [place], [place] | | | | | | | [address] | | | | | | | Phone: | | | | | | | [phone] | | | | | | | Fax: | | | | | | | [phone] | +--------+--------+ + + + + Encounter [...] | | [address] | Ave [place], [place] | (HCC) | | | | Mailcode: [facility] | [address] | | | | | [facility] | [phone] | | | | | and [address], | | | | | | [address] | | | | | | [place], [place] | | | | | | [address] | | | | | | [phone] | | | +--------+---------+ + + + [...] [facility] | REGIONAL | | [address] [address] [facility] | LABORATORY | | [place] [address] | | + + + + + + + + | Performing | Address | City/State/Zipcode | Phone Number | | Organization | | | | + + + + + | [facility] | [address] | [place] [address] | | | LABORATORY | | | | + + + + + FERRITIN, SERUM (03/13/2010 9:50 AM PDT) + + + + + + | Component | Value | Ref Range | Performed | Pathologist | | | | | At | Signature | + + + + + + | FERRITIN | 247Comment: Ferritin | 18 - 460 ng/mL | [facility] | | | | reference intervals | | REGIONAL | | | | based on study performed | | LABORATORY | | | | at [facility], | | | | | | [place], [place]. | | | | + + + + + + + + | Specimen | + + | Blood - Blood | + + + + + | Narrative | Performed At | + + + | [facility] | [facility] | | [address] | REGIONAL | | [place] [address] | LABORATORY | + + + + + + + + | Performing | Address | City/State/Zipcode | Phone Number | | Organization | | | | + + + + + | [facility] | [address] | [place] [address] | | | LABORATORY | | | [...] by: | | | | | | [facility] | | | | | | Services [address] [place] [address] | | | | | | [place] | | | | | | [address] | | | | + + + + + + + + | Specimen | + + | Urine - Urine | + + + + + + + | Performing | Address | City/State/Zipcode | Phone Number | | Organization | | | | + + + + + | [facility] | [address] | [place], [place] | | | [facility] | | [address] | | + + + + + [...] [facility] | [facility] | | [place] [address] | REGIONAL | | [place] [address] | LABORATORY | + + + + + + + + | Performing | Address | City/State/Zipcode | Phone Number | | Organization | | | | + + + + + | [facility] | [address] | [place] [address] | | | LABORATORY | | | [...] Way Lab) [facility] | [facility] | | [place] [address] [place] [facility] | REGIONAL | | [place] [address] | LABORATORY | + + + + + + + + | Performing | Address | City/State/Zipcode | Phone Number | | Organization | | | | + + + + + | [facility] | [address] [facility] | [place] [address] | | | LABORATORY | | | [...] At | + + + | [facility] | [facility] | | [place] [address] [address] [facility] | REGIONAL | | [place] [address] | LABORATORY | + + + + + + + + | Performing | Address | City/State/Zipcode | Phone Number | | Organization | | | | + + + + + | [facility] | [address] | [place] [address] | | | LABORATORY | | | [...] by | | | | | | [place], | | | | | | | | | | | | [address] [facility] | | | | | | [place] [facility] [address] | | | | | | [phone] | | | | | | | | | | | | [email or web address], | | | | | | Magui Lopez MD - | | | | [...] [facility] | [address] | [place], [place] | | | [facility] | | [address] | | + + + + + [...] At | + + + | [facility] | [facility] | | [place] [address] [address] [facility] | DEPARTMENT OF | | [place] [address] | PATHOLOGY | + + + + + + + + | Performing | Address | City/State/Zipcode | Phone Number | | Organization | | | | + + + + + | [facility] DEPARTMENT OF | [address] | [place] [address] | | | PATHOLOGY | [address] [...] | + + + + + | [facility] DEPARTMENT OF | [address] | [place] [address] | | | PATHOLOGY | [address] | | | + + + + + INR (03/13/2010 9:50 AM PDT) + + + + + + | Component | Value | Ref Range | Performed | Pathologist | | | | | At | Signature | + + + + + + | INR | 1.19Comment: | 0.90 - 1.20 INR | [facility] | | | | INR Therapeutic ranges [...] | + + + + + | [facility] | [address] [facility] | [place] [address] | | | PATHOLOGY | [address] [...] | | | DEPARTMENT | | | [facility] | | | OF | | | [...] | + + + + + | [facility] | [address] | [place] [address] | | | PATHOLOGY | [address] [...]
--- OUTSIDE RECORDS SUMMARY | ~2019-09-09 | XMS | Encounter Summary ---
Demographics + + + | Address | [address] | | | [place] [address] | + + + | Home Phone | | + + + | Preferred Language | Unknown | + + + | Marital Status | | + + + | Caodaism Affiliation | Unknown | + + + | Race | Unknown | + + + | Ethnic Group | Unknown | + + + Author + + + | Author | [facility] | | | and [place] | + + + | Organization | [facility] | | [...] Team Providers + +------+ + | Care Screw Driver Operator Name | Role | Phone | + +------+ + PCP | Unavailable | + +------+ + Encounter Details +--------+ + + + + | Date | Type | Department | Care Team | Description | +--------+ + + + + | 10/11/ | Hospital | [facility] | Conversion | Headache(784.0) | | 2015 | Encounter | CONVERSION [address]P [address] | Transaction, | | | | | [address] | Provider Unknown | | | | | [place], [place] | [phone] | | | | | [address] | | | | | | [phone] | | | +--------+ + + + [...] for this | | | e | 4:49 PM | | procedure are in the | | | | PST | | results section. | + +--------+ + + + documented in this encounter Results CT Head wo Contrast (10/11/2014 4:49 PM PST) + + | Specimen | + + | | + + + + + | Narrative | Performed At | + + + | This is a non-reportable procedure without a radiologist report and | | | is used for image storage only | | + + + + + | Procedure Note | + + | Marlon Santamaria - 05/05/2019 12:20 AM PDT This is a non-reportable procedure | | without a radiologist report and isused for image storage only | + + documented in this encounter Visit Diagnoses + + | Diagnosis | + + | Headache(784.0) Headache | + + documented in this encounter"
--- OUTSIDE RECORDS SUMMARY | ~2019-09-09 | XMS | Encounter Summary ---
Demographics + + + | Address | [address] | | | [place] [address] | + + + | Home Phone | | + + + | Preferred Language | Unknown | + + + | Marital Status | | + + + | Moravian Affiliation | Unknown | + + + [...] Team Providers + +------+ + | Care Bottom Presser Name | Role | Phone | + +------+ + PCP | Unavailable | + +------+ + Encounter Details +--------+ + + + + | Date | Type | Department | Care Team | Description | +--------+ + + + + | 11/22/ | Hospital | [facility] | [facility] | Seizure (HCC); | | 2015 - | Encounter | [facility] [address] | Subdural hematoma, | | | | [address] | [address] | post-traumatic, | | 11/26/ | | [place], [place] | [place] [address] | initial encounter | | 2014 | | [id number] | [phone] | (HCC); Traumatic | | | | 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 HISTORY OF PRESENT ILLNESS The patient is a 53 y.o. male with significant past medical history. 53 year old male transferred to this facility from [facility] for further evalu ation. The patient suffered [...] if needed. 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 11/26/14: patient still ready to d/c once the talha arrives. Nursing is looking into this f urther. The tsh is high but the T4 is in normal range. [facility] recc [facility] Recent Labs Lab 11/25/14 0529 11/23/14 0425 TSH -- 12.42* FREET4 0.9 -- Past Medical History Diagnosis Date Alcohol abuse Frequent falls Drug abuse Past Surgical History Procedure Laterality Date No past surgeries Craniotomy Right 10/11/2014 Procedure: CRANIOTOMY - FOR BLEED; Surgeon: Anthony Chong MD; Location: [facility] IN OR; Service: Neurosurgery; Laterality: Right; Craniectomy Right 10/11/2014 Procedure: CRANIECTOMY; Surgeon: Anthony Chong MD; Location: [facility] OR; Ser vice: Neurosurgery; Laterality: Right; Allergies [...] Value Units Date/Time CT head without contrast [[id number]] Resulted: 11/23/14719 Order Status: Completed Updated: 11/23/14724 Narrative: EVANS MCGUIRE [address] HEAD WO CONTRAST 11/23/2014 7:13 AM INDICATION: Altered mental status, hemorrhage COMPARISON: 11/22/14 TECHNIQUE: CT scan of the head without contrast. 5-mm axial noncontrast images were acquir ed from the foramen magnum through the cranial vertex. FINDINGS: On seat joiner chainstitch imaging, there is normal craniocervical alignment with [...] with MRI could be performed. Head Non-Con [[id number]] Resulted: 11/22/142119 Order Status: Completed Updated: 11/22/142124 Narrative: EVANS MCGUIRE CT HEAD WO CONTRAST 11/22/2014 9:08 PM HISTORY: 53 years. Male. Subdural hematoma. TECHNIQUE: 5-mm axial noncontrast images were acquired from the foramen magnum through the cranial fidelina amadeo. COMPARISON: CT head noncontrast 11/22/2014 performed at [facility] 10/14/2014 FINDINGS: An extensive right-sided [...] of the head post right craniectomy. Disposition: assisted Condition: Stable Code Status: Full Code Discharge [...] orders. 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 You may get the following medications from any pharmacy - HYDROcodone-acetaminophen 5-325 MG per tablet - levetiracetam 250 MG tablet - polyethylene glycol packet Discharge took 40inutes, to include final examination, discussion of admission, and prepara tion of prescriptions, instructions for on-going care, follow-up and documentation of discha rge summary. Miguel Ángel John MD 11/26/2014 iguel Ángel John MD - 11/25/2014 10:15 AM PDT Discharge Summaries by Miguel Ángel John MD at 11/25/14 1015 Author: Miguel Ángel John MD Service: Hospitalist Author Type: Physician Filed: 11/25/14 1016 Date of Service: 11/25/14 1015 Status: Signed Corporate Consultant: Miguel Ángel John MD (Physician) [facility] Service: Hospitalist Discharge Summary Date of [...] H&P 11/23/14 0252 Expand All Collapse All [facility] Service: Hospitalist Admission History & Physical Date of Admission: 11/22/2014 Requesting Physician: [facility] Reason for Admission: SZ and SDH History Obtained From: patient CHIEF COMPLAINT: SZ and MARSH. HISTORY OF PRESENT ILLNESS The patient is a 53 y.o. male with significant past medical history. 53 year old male transferred to this facility from [facility] for further evalu ation. The patient suffered [...] if needed. 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 11/25/14: patient still ready to d/c once the talha arrives. Nursing is looking into this f urther. Past Medical History Diagnosis Date Alcohol abuse Frequent falls Drug abuse Past Surgical History Procedure Laterality Date No past surgeries Craniotomy Right 10/11/2014 Procedure: CRANIOTOMY - FOR BLEED; Surgeon: Anthony Chong MD; Location: [facility] IN OR; Service: Neurosurgery; Laterality: Right; Craniectomy Right 10/11/2014 Procedure: CRANIECTOMY; Surgeon: Anthony Chong MD; Location: [facility] OR; Ser vice: Neurosurgery; Laterality: Right; Allergies [...] Value Units Date/Time CT head without contrast [[id number]] Resulted: 11/23/14719 Order Status: Completed Updated: 11/23/14724 Narrative: EVANS LOCKETTKATHI [address] HEAD WO CONTRAST 11/23/2014 7:13 AM INDICATION: Altered mental status, hemorrhage COMPARISON: 11/22/14 TECHNIQUE: CT scan of the head without contrast. 5-mm axial noncontrast images were acquir ed from the foramen magnum through the cranial vertex. FINDINGS: On seat joiner chainstitch imaging, there is normal craniocervical alignment with [...] with MRI could be performed. Head Non-Con [[id number]] Resulted: 11/22/142119 Order Status: Completed Updated: 11/22/142124 Narrative: EVANS MCGUIRE CT HEAD WO CONTRAST 11/22/2014 9:08 PM HISTORY: 53 years. Male. Subdural hematoma. TECHNIQUE: 5-mm axial noncontrast images were acquired from the foramen magnum through the cranial fidelina amadeo. COMPARISON: CT head noncontrast 11/22/2014 performed at [facility] 10/14/2014 FINDINGS: An extensive right-sided [...] of the head post right craniectomy. Disposition: assisted Condition: Stable Code Status: Full Code Discharge [...] orders. 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 You may get the following medications [...] 1934 Date of Service: 11/24/1436 Status: Signed Corporate Consultant: Miguel Ángel John MD (Physician) [facility] Service: Hospitalist Discharge Summary Date of [...] H&P 11/23/14 0252 Expand All Collapse All [facility] Service: Hospitalist Admission History & Physical Date of Admission: 11/22/2014 Requesting Physician: Carter , Emergency Department Reason for Admission: SZ and SDH History Obtained From: patient CHIEF COMPLAINT: SZ and MARSH. HISTORY OF PRESENT ILLNESS The patient is a 53 y.o. male with significant past medical history. 53 year old male transferred to this facility from [facility] for further evalu ation. The patient suffered [...] if needed. 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 Past Medical History Diagnosis Date Alcohol abuse Frequent falls Drug abuse Past Surgical History Procedure Laterality Date No past surgeries Craniotomy Right 10/11/2014 Procedure: CRANIOTOMY - FOR BLEED; Surgeon: Anthony Chong MD; Location: [facility] IN OR; Service: Neurosurgery; Laterality: Right; Craniectomy Right 10/11/2014 Procedure: CRANIECTOMY; Surgeon: Anthony Chong MD; Location: [facility]; Ser vice: Neurosurgery; Laterality: Right; [...] Value Units Date/Time CT head without contrast [[id number]] Resulted: 11/23/14719 Order Status: Completed Updated: 11/23/14724 Narrative: EVANS MCGUIRE [address] HEAD WO CONTRAST 11/23/2014 7:13 AM INDICATION: Altered mental status, hemorrhage COMPARISON: 11/22/14 TECHNIQUE: CT scan of the head without contrast. 5-mm axial noncontrast images were acquir ed from the foramen magnum through the cranial vertex. FINDINGS: On seat joiner chainstitch imaging, there is normal craniocervical alignment with [...] with MRI could be performed. Head Non-Con [[id number]] Resulted: 11/22/142119 Order Status: Completed Updated: 11/22/142124 Narrative: EVANS LOCKETTKATHI CT HEAD WO CONTRAST 11/22/2014 9:08 PM HISTORY: 53 years. Male. Subdural hematoma. TECHNIQUE: 5-mm axial noncontrast images were acquired from the foramen magnum through the cranial fidelina amadeo. COMPARISON: CT head noncontrast 11/22/2014 performed at [facility] 10/14/2014 FINDINGS: An extensive right-sided [...] of the head post right craniectomy. Disposition: assisted Condition: Stable Code Status: Full Code No discharge procedures on file. Follow up: [facility] [address] [place] [facility] [address] In 4 weeks to eval for replacement of skull flap or sooner if needed Carlos Mcconnell MD [address] [place] [address] In 1 week or next available whichever [...] 11/26/141714 Date of Service: 11/26/141713 Status: Signed Corporate Consultant: Mirtha Suh RN (Registered Nurse) Discharge packet given to transport drivers, report on pt given, all questions answered. IV removed. Report called to Na GALARZA at [facility]. Patient left via transport to [facility]. onver alem Transaction, Provider Unknown - 11/26/2014 4:18 PM PDT Case Management by Josseline Mera RN at 11/26/14 1618 Author: Josseline Mera RN Service: (none) Author Type: Rn Research Filed: 11/26/14 1619 Date of Service: 11/26/14 1618 Status: Signed Corporate Consultant: Josseline Mera RN (Rn Research) Disposition: [facility] Transportation: [place] Medicaid-ambulance All orders, signed AVS, and prescriptions have been faxed All DC paperwork completed Patient and family in agreement with discharge plan Medicare important message (N/A): Josseline Mera onver alem Transaction, Provider Unknown - 11/26/2014 9:08 AM PDT Case Management by Josseline Mera RN at 11/26/14 0908 Author: Josseline Mera RN Service: (none) Author Type: Rn Research Filed: 11/26/14 1320 Date of Service: 11/26/14 0908 Status: Addendum Corporate Consultant: Josseline Mera RN (Rn Research) Related Notes: Original Note by Josseline Mera RN (Rn Research) filed at 11/26/14 0954 Discharge Plans: Informed that helmet did not arrive on Wednesday as promised, thus pt has not been discharged. Call placed to [facility] and they are indicating it will be deli qamar by 10:30am today. [facility] ([place] informed of plans to [place] today. Stretcher [employer] arranged for 2pm today. Paperwork completed, ready for faxing when helmet arrives. 11:00 Notified [place] Medicaid transport that patient has been discharged and his helmet is her e. 1317 [facility] ([phone]) and they are in route and (possibly here by 4:30), will call us when closer so we can have pt ready for transport. onver alem Transaction, Provider Unknown - 11/23/2014 9:16 AM PST Case Management by Josseline Mera RN at 11/23/14 0916 Author: Josseline Mera RN Service: (none) Author Type: Rn Research Filed: 11/23/14 1212 Date of Service: 11/23/14915 Status: Addendum Corporate Consultant: Josseline Mera RN (Rn Research) Related Notes: Original Note by Josseline Mera RN (Rn Research) filed at 11/23/14 0931 Discharge Planning: Phoned Evans's father Jay Jay ([phone]) to discuss DC plans. He indicated that Evans has been living at [facility] and the plan is for him to [...] phone, ended the call. I did call [facility] and they are willing to take vEans back when it is appropriate. Th ey are asking that we arrange transport because of his seizures and spontaneous activity it may not be safe, and that he does not have his helmet here. [place] [employer] [facility] ([phone]) contacted and they can provide stretcher transport but will need definite time to transport. onver alem Transaction, Provider Unknown - 11/23/2014 8:43 AM PST Nurse Progress Note by Misty Hays RN at 11/23/1443 Author: Misty Hays RN Service: (none) Author Type: Registered Nurse Filed: 11/23/14 1410 Date of Service: 11/23/14842 Status: Addendum Corporate Consultant: Misty Hays RN (Registered Nurse) Related Notes: Original Note by Misty Hays RN (Registered Nurse) filed at 0200 1989: Attempted to call Teressa ([phone]) back to give updates and ask pts [...] she had picked up the helmet from [facility] and was not planning on co elizabeth to see the patient until Wednesday. Explained the importance of the helmet. Mother did no t seem to understand importance. onver alem Transaction, Provider Unknown - 11/23/2014 6:29 AM PST Progress Notes by Kyrie Payne RPH at 11/23/14628 Author: Kyrie Payne RPH Service: (none) Author Type: Pharmacist Filed: 11/23/14629 Date of Service: 11/23/1429 Status: Signed Corporate Consultant: Kyrie Payne RPH (Pharmacist) Scr = 0.6- pharmacy will renal dose as needed once weight is charted. docume nted in this encounter Plan of Treatment Not on filedocumented as of this encounter Procedures + +--------+ + + + | Procedure Name | Priori | Date/Time | Associated Diagnosis | Comments | | | ty | | | | + +--------+ + + + | EXTERNAL LAB: MARJ | Routin | 11/26/2014 | | Results [...] EXTERNAL | | | | performed at L, [address] | [address] | LAB | | | | [address], | | | | | | [place] [address] | | | | + + + + + + | RED CELL | 3.88 (L)Comment: Testing | 4.20 - 5.70 | EXTERNAL | | | COUNT | performed at [facility], [address] | [address] | LAB | | | | [address], | | | | | | [place] [address] | | | | + + + + + + | Hgb | 12.3 (L)Comment: Testing | 13.2 - 17.0 | EXTERNAL | | | | performed at [facility], [address] | g/dL | LAB | | | | [address], | | | | | | [place] [address] | | | | + + + + + + | Hematocrit, | 36.2 (L)Comment: Testing | 39.0 - 50.0 % | EXTERNAL | | | POC | performed at [facility], [address] | | LAB | | | | [address], | | | | | | [place] [address] | | | | + + + + + + | MCV | 93.4Comment: Testing | 80.0 - 100.0 fl | EXTERNAL | | | | performed at [facility], [address] | | LAB | | | | [address], | | | | | | [place] [address] | | | | + + + + + + | MCH | 31.7Comment: Testing | 27.0 - 34.0 pg | EXTERNAL | | | | performed at [facility], [address] | | LAB | | | | [address], | | | | | | [place] [address] | | | | + + + + + + | MCHC | 34.0Comment: Testing | 32.0 - 35.5 | EXTERNAL | | | | performed at [facility], [address] | g/dL | LAB | | | | [address], | | | | | | [place] [address] | | | | + + + + + + | RDW-CV | 46.8Comment: Testing | 37 - 53 fl | EXTERNAL | | | | performed at [facility], [address] | | LAB | | | | [address], | | | | | | [place] [address] | | | | + + + + + + | Platelet | 161Comment: Testing | 150 - 400 K/uL | EXTERNAL | | | Count | performed at [facility], [address] | | LAB | | | Plasma | [address], | | | | | | [place] [address] | | | | + + + + + + | MPV | 8.7Comment: Testing | fl | EXTERNAL | | | | performed at [facility], [address] | | LAB | | | | [address], | | | | | | [place] [address] | | | | + + + + + + | Differentia | AUTOMATEDComment: | | EXTERNAL | | | l Type | Testing performed at | | LAB | | | | [facility], [address] | | | | | | [place] | | | | | | [address] | | | | + + + + + + | % Segmented | 64.56Comment: Testing | % | EXTERNAL | | | | performed at [facility], [address] | | LAB | | | Neutrophils | [address], | | | | | | [place] [address] | | | | + + + + + + | % | 18.74Comment: Testing | % | EXTERNAL | | | Lymphocytes | performed at [facility], [address] | | LAB | | | | [address], | | | | | | [place] [address] | | | | + + + + + + | % Monocytes | 11.05Comment: Testing | % | EXTERNAL | | | | performed at [facility], [address] | | LAB | | | | [address], | | | | | | [place] [address] | | | | + + + + + + | % | 4.94Comment: Testing | % | EXTERNAL | | | Eosinophils | performed at [facility], [address] | | LAB | | | | [address], | | | | | | [place] [address] | | | | + + + + + + | % Basophils | 0.71Comment: Testing | % | EXTERNAL | | | | performed at [facility], [address] | | LAB | | | | [address], | | | | | | [place] [address] | | | | + + + + + + | Absolute | 3.91Comment: Testing | 1.90 - 7.40 | EXTERNAL | | | Segmented | performed at [facility], [address] | K/uL | LAB | | | Neutrophils | [address], | | | | | | [place] [address] | | | | + + + + + + | Absolute | 1.14Comment: Testing | 1.00 - 3.90 | EXTERNAL | | | Lymphocytes | performed at [facility], [address] | K/uL | LAB | | | | [address], | | | | | | [place] [address] | | | | + + + + + + | Absolute | 0.67Comment: Testing | 0.00 - 0.80 | EXTERNAL | | | Monocytes | performed at [facility], [address] | K/uL | LAB | | | | [address], | | | | | | [place] [address] | | | | + + + + + + | Absolute | 0.30Comment: Testing | 0.00 - 0.50 | EXTERNAL | | | Eosinophils | performed at [facility], [address] | K/uL | LAB | | | | [address], | | | | | | [place] [address] | | | | + + + + + + | Absolute | 0.04Comment: Testing | 0.00 - 0.10 | EXTERNAL | | | Basophils | performed at [facility], [address] | K/uL | LAB | | | | [address], | | | | | | [place] [address] | | | | + + + [...] EXTERNAL | | | | performed at [facility], [address] | | LAB | | | | [address], | | | | | | [place] [address] | | | | + + + [...] EXTERNAL | | | | performed at [facility], [address] | | LAB | | | | [address], | | | | | | [place] [address] | | | | + + + [...] | | | | | [place] [address] | | | | + + + + + + | K | 3.8Comment: Testing | 3.5 - 4.9 | EXTERNAL | | | | performed at [facility], [address] | mmol/L | LAB | | | | [address], | | | | | | [place] [address] | | | | + + + + + + | Cl | 104Comment: Testing | 99 - 109 mmol/L | EXTERNAL | | | | performed at [facility], [address] | | LAB | | | | [address], | | | | | | [place] [address] | | | | + + + + + + | CO2 | 27Comment: Testing | 23 - 32 mmol/L | EXTERNAL | | | | performed at [facility], [address] | | LAB | | | | [address], | | | | | | [place] [address] | | | | + + + + + + | Anion Gap | 9Comment: Testing | 5 - 20 mmol/L | EXTERNAL | | | | performed at [facility], [address] | | LAB | | | | [address], | | | | | | [place] [address] | | | | + + + + + + | Glucose, | 99Comment: Testing | 65 - 99 mg/dL | EXTERNAL | | | Fasting | performed at [facility], [address] | | LAB | | | | [address], | | | | | | [place] [address] | | | | + + + + + + | BUN | 8Comment: Testing | 8 - 25 mg/dL | EXTERNAL | | | | performed at [facility], [address] | | LAB | | | | [address], | | | | | | [place] [address] | | | | + + + + + + | Creatinine | 0.62 (L)Comment: Testing | 0.70 - 1.30 | EXTERNAL | | | | performed at [facility], [address] | mg/dL | LAB | | | | [address], | | | | | | [place] [address] | | | | + + + + + + | BUN/Creatin | 13Comment: Testing | | EXTERNAL | | | ine Ratio | performed at [facility], [address] | | LAB | | | [address], | | | | | | [place] [address] | | | | + + + + + + | Calcium | 8.9Comment: Testing | 8.5 - 10.5 | EXTERNAL | | | | performed at [facility], [address] | mg/dL | LAB | | | | [address], | | | | | | [place] [address] | | | | + + + + + + | Protein, | 6.7Comment: Testing | 6.3 - 8.2 g/dL | EXTERNAL | | | Total | performed at [facility], [address] | | LAB | | | | [address], | | | | | | [place] [address] | | | | + + + + + + | Albumin | 3.2 (L)Comment: Testing | 3.6 - 5.0 g/dL | EXTERNAL | | | | performed at [facility], [address] | | LAB | | | | [address], | | | | | | [place] [address] | | | | + + + + + + | Globulin | 3.5Comment: Testing | 1.3 - 4.9 g/dL | EXTERNAL | | | | performed at [facility], [address] | | LAB | | | [address], | | | | | | [place] [address] | | | | + + + + + + | A/G Ratio | 0.9 (L)Comment: Testing | 1.0 - 2.4 | EXTERNAL | | | | performed at [facility], [address] | | LAB | | | | [address], | | | | | | [place] [address] | | | | + + + + + + | Bilirubin | 0.4Comment: Testing | 0.1 - 1.5 mg/dL | EXTERNAL | | | Total | performed at [facility], [address] | | LAB | | | | [address], | | | | | | [place] [address] | | | | + + + + + + | ALP, | 105Comment: Testing | 35 - 115 U/L | EXTERNAL | | | External | performed at [facility], [address] | | LAB | | | | [address], | | | | | | [place] [address] | | | | + + + + + + | AST | 26Comment: Testing | 10 - 45 U/L | EXTERNAL | | | | performed at [facility], [address] | | LAB | | | | [address], | | | | | | [place] [address] | | | | + + + + + + | ALT | 19Comment: Testing | 10 - 65 U/L | EXTERNAL | | | | performed at [facility], [address] | | LAB | | | | [employer], | | | | | | [place] [address] | | | | + + + [...] | | | | | | at [facility], [address] | | | | | | [address], | | | | | | [place] [address] | | | | + + + [...] EXTERNAL | | | | performed at [facility], [address] | K/uL | LAB | | | | [address], | | | | | | [place] [address] | | | | + + + + + + | RED CELL | 4.10 (L)Comment: Testing | 4.20 - 5.70 | EXTERNAL | | | COUNT | performed at [facility], [address] | M/uL | LAB | | | | [address], | | | | | | [place] [address] | | | | + + + + + + | Hgb | 12.9 (L)Comment: Testing | 13.2 - 17.0 | EXTERNAL | | | | performed at [facility], [address] | g/dL | LAB | | | | [address], | | | | | | [place] [address] | | | | + + + + + + | Hematocrit, | 38.6 (L)Comment: Testing | 39.0 - 50.0 % | EXTERNAL | | | POC | performed at [facility], [address] | | LAB | | | | [address], | | | | | | [place] [address] | | | | + + + + + + | MCV | 94.2Comment: Testing | 80.0 - 100.0 fl | EXTERNAL | | | | performed at [facility], [address] | | LAB | | | | [address], | | | | | | [place] [address] | | | | + + + + + + | MCH | 31.4Comment: Testing | 27.0 - 34.0 pg | EXTERNAL | | | | performed at [facility], [address] | | LAB | | | | [address], | | | | | | [place] [address] | | | | + + + + + + | MCHC | 33.3Comment: Testing | 32.0 - 35.5 | EXTERNAL | | | | performed at [facility], [address] | g/dL | LAB | | | | [address], | | | | | | [place] [address] | | | | + + + + + + | RDW-CV | 46.8Comment: Testing | 37 - 53 fl | EXTERNAL | | | | performed at [facility], [address] | | LAB | | | | [address], | | | | | | [place] [address] | | | | + + + + + + | Platelet | 161Comment: Testing | 150 - 400 K/uL | EXTERNAL | | | Count | performed at [facility], [address] | | LAB | | | Plasma | [address], | | | | | | [place] [address] | | | | + + + + + + | MPV | 8.9Comment: Testing | fl | EXTERNAL | | | | performed at [facility], [address] | | LAB | | | | [address], | | | | | | [place] [address] | | | | + + + + + + | Differentia | AUTOMATEDComment: | | EXTERNAL | | | l Type | Testing performed at | | LAB | | | | [facility], [address] | | | | | | [place] | | | | | | [address] | | | | + + + + + + | % Segmented | 60.71Comment: Testing | % | EXTERNAL | | | | performed at [facility], [address] | | LAB | | | Neutrophils | [address], | | | | | | [place] [address] | | | | + + + + + + | % | 21.02Comment: Testing | % | EXTERNAL | | | Lymphocytes | performed at [facility], [address] | | LAB | | | | [address], | | | | | | [place] [address] | | | | + + + + + + | % Monocytes | 12.59Comment: Testing | % | EXTERNAL | | | | performed at [facility], [address] | | LAB | | | | [address], | | | | | | [place] [address] | | | | + + + + + + | % | 5.10Comment: Testing | % | EXTERNAL | | | Eosinophils | performed at [facility], [address] | | LAB | | | | [address], | | | | | | [place] [address] | | | | + + + + + + | % Basophils | 0.58Comment: Testing | % | EXTERNAL | | | | performed at [facility], [address] | | LAB | | | | [address], | | | | | | [place] [address] | | | | + + + + + + | Absolute | 3.70Comment: Testing | 1.90 - 7.40 | EXTERNAL | | | Segmented | performed at [facility], [address] | K/uL | LAB | | | Neutrophils | [address], | | | | | | [place] [address] | | | | + + + + + + | Absolute | 1.28Comment: Testing | 1.00 - 3.90 | EXTERNAL | | | Lymphocytes | performed at [facility], [address] | K/u[address] | LAB | | | | [address], | | | | | | [place] [address] | | | | + + + + + + | Absolute | 0.77Comment: Testing | 0.00 - 0.80 | EXTERNAL | | | Monocytes | performed at [facility], [address] | [address] | LAB | | | | [address], | | | | | | [place] [address] | | | | + + + + + + | Absolute | 0.31Comment: Testing | 0.00 - 0.50 | EXTERNAL | | | Eosinophils | performed at [facility], [address] | K[address] | LAB | | | | [address], | | | | | | [place] [address] | | | | + + + + + + | Absolute | 0.04Comment: Testing | 0.00 - 0.10 | EXTERNAL | | | Basophils | performed at [facility], [address] | K/uL | LAB | | | | [address], | | | | | | [place] [address] | | | | + + + [...] | | | (REF) | performed at [facility], [address] | | LAB | | | | [address], | | | | | | [place] [address] | | | | + + + [...] EXTERNAL | | | | performed at [facility], [address] | | LAB | | | | [address], | | | | | | [place] [address] | | | | + + + [...] | LAB | | | | [address], | | | | | | [place] [address] | | | | + + + [...] | | | | | [place] [address] | | | | + + + + + + | K | 3.8Comment: Testing | 3.5 - 4.9 | EXTERNAL | | | | performed at [facility], [address] | mmol/L | LAB | | | | [address], | | | | | | [place] [address] | | | | + + + + + + | Cl | 104Comment: Testing | 99 - 109 mmol/L | EXTERNAL | | | | performed at [facility], [address] | | LAB | | | | [address], | | | | | | [place] [address] | | | | + + + + + + | CO2 | 28Comment: Testing | 23 - 32 mmol/L | EXTERNAL | | | | performed at [facility], [address] | | LAB | | | | [address], | | | | | | [place] [address] | | | | + + + + + + | Anion Gap | 8Comment: Testing | 5 - 20 mmol/L | EXTERNAL | | | | performed at [facility], [address] | | LAB | | | | [address], | | | | | | [place] [address] | | | | + + + + + + | Glucose, | 107 (H)Comment: Testing | 65 - 99 mg/dL | EXTERNAL | | | Fasting | performed at [facility], [address] | | LAB | | | | [address], | | | | | | [place] [address] | | | | + + + + + + | BUN | 6 (L)Comment: Testing | 8 - 25 mg/dL | EXTERNAL | | | | performed at [facility], [address] | | LAB | | | | [address], | | | | | | [place] [address] | | | | + + + + + + | Creatinine | 0.59 (L)Comment: Testing | 0.70 - 1.30 | EXTERNAL | | | | performed at [facility], [address] | mg/dL | LAB | | | | [address], | | | | | | [place] [address] | | | | + + + + + + | BUN/Creatin | 10Comment: Testing | | EXTERNAL | | | ine Ratio | performed at [facility], [address] | | LAB | | | | [address], | | | | | | [place] [address] | | | | + + + + + + | Calcium | 9.2Comment: Testing | 8.5 - 10.5 | EXTERNAL | | | | performed at [facility], [address] | mg/dL | LAB | | | | [address], | | | | | | [place] [address] | | | | + + + + + + | Protein, | 7.0Comment: Testing | 6.3 - 8.2 g/dL | EXTERNAL | | | Total | performed at [facility], [address] | | LAB | | | | [address], | | | | | | [place] [address] | | | | + + + + + + | Albumin | 3.4 (L)Comment: Testing | 3.6 - 5.0 g/dL | EXTERNAL | | | | performed at [facility], [address] | | LAB | | | | [address], | | | | | | [place] [address] | | | | + + + + + + | Globulin | 3.6Comment: Testing | 1.3 - 4.9 g/dL | EXTERNAL | | | | performed at [facility], [address] | | LAB | | | | [address], | | | | | | [place] [address] | | | | + + + + + + | A/G Ratio | 0.9 (L)Comment: Testing | 1.0 - 2.4 | EXTERNAL | | | | performed at [facility], [address] | | LAB | | | | [address], | | | | | | [place] [address] | | | | + + + + + + | Bilirubin | 0.5Comment: Testing | 0.1 - 1.5 mg/dL | EXTERNAL | | | Total | performed at [facility], [address] | | LAB | | | | [address], | | | | | | [place] [address] | | | | + + + + + + | ALP, | 115Comment: Testing | 35 - 115 U/L | EXTERNAL | | | External | performed at [facility], [address] | | LAB | | | | [address], | | | | | | [place] [address] | | | | + + + + + + | AST | 27Comment: Testing | 10 - 45 U/L | EXTERNAL | | | | performed at [facility], [address] | | LAB | | | | [address], | | | | | | [place] [address] | | | | + + + + + + | ALT | 21Comment: Testing | 10 - 65 U/L | EXTERNAL | | | | performed at [facility], [address] | | LAB | | | | [address], | | | | | | [place] [address] | | | | + + + [...] | | | | | | at [facility], [address] | | | | | | [address], | | | | | | [place] [address] | | | | + + + [...] EXTERNAL | | | | performed at [facility], [address] | K/uL | LAB | | | | [address], | | | | | | [place] [address] | | | | + + + + + + | RED CELL | 4.01 (L)Comment: Testing | 4.20 - 5.70 | EXTERNAL | | | COUNT | performed at [facility], [address] | [address] | LAB | | | | [address], | | | | | | [place] [address] | | | | + + + + + + | Hgb | 12.3 (L)Comment: Testing | 13.2 - 17.0 | EXTERNAL | | | | performed at [facility], [address] | g/dL | LAB | | | | [address], | | | | | | [place] [address] | | | | + + + + + + | Hematocrit, | 37.8 (L)Comment: Testing | 39.0 - 50.0 % | EXTERNAL | | | POC | performed at [facility], [address] | | LAB | | | | [address], | | | | | | [place] [address] | | | | + + + + + + | MCV | 94.3Comment: Testing | 80.0 - 100.0 fl | EXTERNAL | | | | performed at [facility], [address] | | LAB | | | | [address], | | | | | | [place] [address] | | | | + + + + + + | MCH | 30.6Comment: Testing | 27.0 - 34.0 pg | EXTERNAL | | | | performed at [facility], [address] | | LAB | | | | [address], | | | | | | [place] [address] | | | | + + + + + + | MCHC | 32.4Comment: Testing | 32.0 - 35.5 | EXTERNAL | | | | performed at [facility], [address] | g/dL | LAB | | | | [address], | | | | | | [place] [address] | | | | + + + + + + | RDW-CV | 47.7Comment: Testing | 37 - 53 fl | EXTERNAL | | | | performed at [facility], [address] | | LAB | | | | [address], | | | | | | [place] [address] | | | | + + + + + + | Platelet | 153Comment: Testing | 150 - 400 K/uL | EXTERNAL | | | Count | performed at [facility], [address] | | LAB | | | Plasma | [address], | | | | | | [place] [address] | | | | + + + + + + | MPV | 9.0Comment: Testing | fl | EXTERNAL | | | | performed at [facility], [address] | | LAB | | | | [address], | | | | | | [place] [address] | | | | + + + + + + | Differentia | AUTOMATEDComment: | | EXTERNAL | | | l Type | Testing performed at | | LAB | | | | [facility], [address] | | | | | | [place] | | | | | | [address] | | | | + + + + + + | % Segmented | 70.29Comment: Testing | % | EXTERNAL | | | | performed at [facility], [address] | | LAB | | | Neutrophils | [address], | | | | | | [place] [address] | | | | + + + + + + | % | 14.74Comment: Testing | % | EXTERNAL | | | Lymphocytes | performed at [facility], [address] | | LAB | | | | [address], | | | | | | [place] [address] | | | | + + + + + + | % Monocytes | 10.97Comment: Testing | % | EXTERNAL | | | | performed at [facility], [address] | | LAB | | | | [address], | | | | | | [place] [address] | | | | + + + + + + | % | 3.52Comment: Testing | % | EXTERNAL | | | Eosinophils | performed at [facility], [address] | | LAB | | | | [address], | | | | | | [place] [address] | | | | + + + + + + | % Basophils | 0.48Comment: Testing | % | EXTERNAL | | | | performed at [facility], [address] | | LAB | | | | [address], | | | | | | [place] [address] | | | | + + + + + + | Absolute | 5.09Comment: Testing | 1.90 - 7.40 | EXTERNAL | | | Segmented | performed at [facility], [address] | K[address] | LAB | | | Neutrophils | [address], | | | | | | [place] [address] | | | | + + + + + + | Absolute | 1.07Comment: Testing | 1.00 - 3.90 | EXTERNAL | | | Lymphocytes | performed at [facility], [address] | [address] | LAB | | | | [address], | | | | | | [place] [address] | | | | + + + + + + | Absolute | 0.79Comment: Testing | 0.00 - 0.80 | EXTERNAL | | | Monocytes | performed at [facility], [address] | [address] | LAB | | | | [address], | | | | | | [place] [address] | | | | + + + + + + | Absolute | 0.26Comment: Testing | 0.00 - 0.50 | EXTERNAL | | | Eosinophils | performed at [facility], [address] | [address] | LAB | | | | [address], | | | | | | [place] [address] | | | | + + + + + + | Absolute | 0.03Comment: Testing | 0.00 - 0.10 | EXTERNAL | | | Basophils | performed at [facility], [address] | [address] | LAB | | | | [address], | | | | | | [place] [address] | | | | + + + [...] EXTERNAL | | | | performed at [facility], [address] | | LAB | | | | [address], | | | | | | [place] [address] | | | | + + + [...] | | | | | [place] [address] | | | | + + + [...] | | | | | [place] [address] | | | | + + + + + + | K | 4.0Comment: Testing | 3.5 - 4.9 | EXTERNAL | | | | performed at [facility], [address] | mmol/L | LAB | | | | [address], | | | | | | [place] [address] | | | | + + + + + + | Cl | 102Comment: Testing | 99 - 109 mmol/L | EXTERNAL | | | | performed at [facility], [address] | | LAB | | | | [address], | | | | | | [place] [address] | | | | + + + + + + | CO2 | 26Comment: Testing | 23 - 32 mmol/L | EXTERNAL | | | | performed at [facility], [address] | | LAB | | | | [address], | | | | | | [place] [address] | | | | + + + + + + | Anion Gap | 11Comment: Testing | 5 - 20 mmol/L | EXTERNAL | | | | performed at [facility], [address] | | LAB | | | | [address], | | | | | | [place] [address] | | | | + + + + + + | Glucose, | 103 (H)Comment: Testing | 65 - 99 mg/dL | EXTERNAL | | | Fasting | performed at [facility], [address] | | LAB | | | | [address], | | | | | | [place] [address] | | | | + + + + + + | BUN | 6 (L)Comment: Testing | 8 - 25 mg/dL | EXTERNAL | | | | performed at [facility], [address] | | LAB | | | | [address], | | | | | | [place] [address] | | | | + + + + + + | Creatinine | 0.63 (L)Comment: Testing | 0.70 - 1.30 | EXTERNAL | | | | performed at [facility], [address] | mg/dL | LAB | | | | [address], | | | | | | [place] [address] | | | | + + + + + + | BUN/Creatin | 10Comment: Testing | | EXTERNAL | | | ine Ratio | performed at [facility], [address] | | LAB | | | | [address], | | | | | | [place] [address] | | | | + + + + + + | Calcium | 9.3Comment: Testing | 8.5 - 10.5 | EXTERNAL | | | | performed at [facility], [address] | mg/dL | LAB | | | | [address], | | | | | | [place] [address] | | | | + + + + + + | Protein, | 6.9Comment: Testing | 6.3 - 8.2 g/dL | EXTERNAL | | | Total | performed at [facility], [address] | | LAB | | | | [address], | | | | | | [place] [address] | | | | + + + + + + | Albumin | 3.5 (L)Comment: Testing | 3.6 - 5.0 g/dL | EXTERNAL | | | | performed at [facility], [address] | | LAB | | | | [address], | | | | | | [place] [address] | | | | + + + + + + | Globulin | 3.4Comment: Testing | 1.3 - 4.9 g/dL | EXTERNAL | | | | performed at [facility], [address] | | LAB | | | | [address], | | | | | | [place] [address] | | | | + + + + + + | A/G Ratio | 1.0Comment: Testing | 1.0 - 2.4 | EXTERNAL | | | | performed at [facility], [address] | | LAB | | | | [address], | | | | | | [place] [address] | | | | + + + + + + | Bilirubin | 0.5Comment: Testing | 0.1 - 1.5 mg/dL | EXTERNAL | | | Total | performed at [facility], [address] | | LAB | | | | [address], | | | | | | [place] [address] | | | | + + + + + + | ALP, | 103Comment: Testing | 35 - 115 U/L | EXTERNAL | | | External | performed at [facility], [address] | | LAB | | | | [address], | | | | | | [place] [address] | | | | + + + + + + | AST | 27Comment: Testing | 10 - 45 U/L | EXTERNAL | | | | performed at [facility], [address] | | LAB | | | | [address], | | | | | | [place] [address] | | | | + + + + + + | ALT | 23Comment: Testing | 10 - 65 U/L | EXTERNAL | | | | performed at [facility], [address] | | LAB | | | | [address], | | | | | | [place] [address] | | | | + + + [...] | | | | | [place] [address] | | | | + + + [...] At | + + + | EVANS MCGUIRE 1960 53 [address] HEAD WO CONTRAST | | | 11/23/2014 7:13 AM INDICATION: Altered mental status, hemorrhage | | | COMPARISON: 11/22/14 TECHNIQUE: CT scan of the head without | | | contrast. 5-mm axial noncontrast images were acquired from the | | | foramen magnum through the cranial vertex. FINDINGS: On seat joiner chainstitch | | | imaging, there is normal [...] Conversion - 05/05/2019 12:20 AM PDT EVANS MCGUIRE years | | MaleCT HEAD WO CONTRAST11/23/2014 7:13 AM INDICATION: Altered mental status, hemorrhage | | COMPARISON: 11/22/14 TECHNIQUE: CT scan of the head without contrast. 5-mm axial | | noncontrast images were acquired from the foramen magnum through the cranial vertex. | | FINDINGS: On seat joiner chainstitch imaging, there is normal craniocervical alignment with [...] | | + + External Lab: CBC (11/23/2014 4:25 AM PST) + + + + + + | Component | Value | Ref Range | Performed | Pathologist | | | | | At | Signature | + + + + + + | WBC | 8.55Comment: Testing | 3.80 - 11.00 | EXTERNAL | | | | performed at [facility], [address] | K/uL | LAB | | | | [address], | | | | | | [place] [address] | | | | + + + + + + | RED CELL | 4.01 (L)Comment: Testing | 4.20 - 5.70 | EXTERNAL | | | COUNT | performed at [facility], [address] | M/uL | LAB | | | | [address], | | | | | | [place] [address] | | | | + + + + + + | Hgb | 12.5 (L)Comment: Testing | 13.2 - 17.0 | EXTERNAL | | | | performed at [facility], [address] | g/dL | LAB | | | | [address], | | | | | | [place] [address] | | | | + + + + + + | Hematocrit, | 38.0 (L)Comment: Testing | 39.0 - 50.0 % | EXTERNAL | | | POC | performed at [facility], [address] | | LAB | | | | [address], | | | | | | [place] [address] | | | | + + + + + + | MCV | 94.9Comment: Testing | 80.0 - 100.0 fl | EXTERNAL | | | | performed at [facility], [address] | | LAB | | | | [address], | | | | | | [place] [address] | | | | + + + + + + | MCH | 31.2Comment: Testing | 27.0 - 34.0 pg | EXTERNAL | | | | performed at [facility], [address] | | LAB | | | | [address], | | | | | | [place] [address] | | | | + + + + + + | MCHC | 32.9Comment: Testing | 32.0 - 35.5 | EXTERNAL | | | | performed at [facility], [address] | g/dL | LAB | | | | [address], | | | | | | [place] [address] | | | | + + + + + + | RDW-CV | 47.3Comment: Testing | 37 - 53 fl | EXTERNAL | | | | performed at [facility], [address] | | LAB | | | | [address], | | | | | | [place] [address] | | | | + + + + + + | Platelet | 171Comment: Testing | 150 - 400 K/uL | EXTERNAL | | | Count | performed at [facility], [address] | | LAB | | | Plasma | [address], | | | | | | [place] [address] | | | | + + + + + + | MPV | 8.8Comment: Testing | fl | EXTERNAL | | | | performed at [facility], [address] | | LAB | | | | [address], | | | | | | [place] [address] | | | | + + + + + + | Differentia | AUTOMATEDComment: | | EXTERNAL | | | l Type | Testing performed at | | LAB | | | | [facility], [address] | | | | | | [place] | | | | | | [address] | | | | + + + + + + | % Segmented | 67.69Comment: Testing | % | EXTERNAL | | | | performed at [facility], [address] | | LAB | | | Neutrophils | [address], | | | | | | [place] [address] | | | | + + + + + + | % | 20.09Comment: Testing | % | EXTERNAL | | | Lymphocytes | performed at [facility], [address] | | LAB | | | | [address], | | | | | | [place] [address] | | | | + + + + + + | % Monocytes | 9.27Comment: Testing | % | EXTERNAL | | | | performed at [facility], [address] | | LAB | | | | [address], | | | | | | [place] [address] | | | | + + + + + + | % | 2.66Comment: Testing | % | EXTERNAL | | | Eosinophils | performed at [facility], [address] | | LAB | | | | [address], | | | | | | [place] [address] | | | | + + + + + + | % Basophils | 0.29Comment: Testing | % | EXTERNAL | | | | performed at [facility], [address] | | LAB | | | | [address], | | | | | | [place] [address] | | | | + + + + + + | Absolute | 5.79Comment: Testing | 1.90 - 7.40 | EXTERNAL | | | Segmented | performed at [facility], [address] | K/uL | LAB | | | Neutrophils | [address], | | | | | | [place] [address] | | | | + + + + + + | Absolute | 1.72Comment: Testing | 1.00 - 3.90 | EXTERNAL | | | Lymphocytes | performed at [facility], [address] | K/uL | LAB | | | | [address], | | | | | | [place] [address] | | | | + + + + + + | Absolute | 0.79Comment: Testing | 0.00 - 0.80 | EXTERNAL | | | Monocytes | performed at [facility], [address] | K/[address]L | LAB | | | | [address], | | | | | | [place] [address] | | | | + + + + + + | Absolute | 0.23Comment: Testing | 0.00 - 0.50 | EXTERNAL | | | Eosinophils | performed at [facility], [address] | K/uL | LAB | | | | [address], | | | | | | [place] [address] | | | | + + + + + + | Absolute | 0.03Comment: Testing | 0.00 - 0.10 | EXTERNAL | | | Basophils | performed at [facility], [address] | K/[address]L | LAB | | | | [address], | | | | | | [place] [address] | | | | + + + [...] LAB | | | | [facility], [address] | | | | | | [place] | | | | | | [address] | | | | + + + [...] EXTERNAL | | | | performed at [facility], [address] | | LAB | | | | [address], | | | | | | [place] [address] | | | | + + + [...] EXTERNAL | | | | performed at [facility], [address] | | LAB | | | | [address], | | | | | | [place] [address] | | | | + + + [...] | | | | | [place] [address] | | | | + + + + + + | K | 4.2Comment: Testing | 3.5 - 4.9 | EXTERNAL | | | | performed at [facility], [address] | mmol/L | LAB | | | | [address], | | | | | | [place] [address] | | | | + + + + + + | Cl | 102Comment: Testing | 99 - 109 mmol/L | EXTERNAL | | | | performed at [facility], [address] | | LAB | | | | [address], | | | | | | [place] [address] | | | | + + + + + + | CO2 | 25Comment: Testing | 23 - 32 mmol/L | EXTERNAL | | | | performed at [facility], [address] | | LAB | | | | [address], | | | | | | [place] [address] | | | | + + + + + + | Anion Gap | 13Comment: Testing | 5 - 20 mmol/L | EXTERNAL | | | | performed at [facility], [address] | | LAB | | | | [address], | | | | | | [place] [address] | | | | + + + + + + | Glucose, | 113 (H)Comment: Testing | 65 - 99 mg/dL | EXTERNAL | | | Fasting | performed at [facility], [address] | | LAB | | | | [address], | | | | | | [place] [address] | | | | + + + + + + | BUN | 4 (L)Comment: Testing | 8 - 25 mg/dL | EXTERNAL | | | | performed at [facility], [address] | | LAB | | | | [address], | | | | | | [place] [address] | | | | + + + + + + | Creatinine | 0.60 (L)Comment: Testing | 0.70 - 1.30 | EXTERNAL | | | | performed at [facility], [address] | mg/dL | LAB | | | | [address], | | | | | | [place] [address] | | | | + + + + + + | BUN/Creatin | 7Comment: Testing | | EXTERNAL | | | ine Ratio | performed at [facility], [address] | | LAB | | | | [address], | | | | | | [place] [address] | | | | + + + + + + | Calcium | 9.4Comment: Testing | 8.5 - 10.5 | EXTERNAL | | | | performed at [facility], [address] | mg/dL | LAB | | | | [address], | | | | | | [place] [address] | | | | + + + + + + | Protein, | 7.3Comment: Testing | 6.3 - 8.2 g/dL | EXTERNAL | | | Total | performed at [facility], [address] | | LAB | | | | [address], | | | | | | [place] [address] | | | | + + + + + + | Albumin | 3.7Comment: Testing | 3.6 - 5.0 g/dL | EXTERNAL | | | | performed at [facility], [address] | | LAB | | | | [address], | | | | | | [place] [address] | | | | + + + + + + | Globulin | 3.6Comment: Testing | 1.3 - 4.9 g/dL | EXTERNAL | | | | performed at [facility], [address] | | LAB | | | | [address], | | | | | | [place] [address] | | | | + + + + + + | A/G Ratio | 1.0Comment: Testing | 1.0 - 2.4 | EXTERNAL | | | | performed at [facility], [address] | | LAB | | | | [address], | | | | | | [place] [address] | | | | + + + + + + | Bilirubin | 0.5Comment: Testing | 0.1 - 1.5 mg/dL | EXTERNAL | | | Total | performed at [facility], [address] | | LAB | | | | [address], | | | | | | [place] [address] | | | | + + + + + + | ALP, | 104Comment: Testing | 35 - 115 U/L | EXTERNAL | | | External | performed at [facility], [address] | | LAB | | | | [address], | | | | | | [place] [address] | | | | + + + + + + | AST | 36Comment: Testing | 10 - 45 U/L | EXTERNAL | | | | performed at [facility], [address] | | LAB | | | | [address], | | | | | | [place] [address] | | | | + + + + + + | ALT | 26Comment: Testing | 10 - 65 U/L | EXTERNAL | | | | performed at [facility], [address] | | LAB | | | | [facility], | | | | | | [place] [address] | | | | + + + [...] | | | | | | at [facility], [address] | | | | | | [facility], | | | | | | [place] [address] | | | | + + + [...] At | + + + | [facility] CT HEAD WO CONTRAST 11/22/2014 9:08 PM HISTORY: | | | 53 years. Male. Subdural hematoma. TECHNIQUE: 5-mm axial | | | noncontrast images were acquired from the foramen magnum through the | | | cranial vertex. COMPARISON: CT head noncontrast 11/22/2014 | | | performed at [facility] 10/14/2014 FINDINGS: An | | [...] Conversion - 05/05/2019 12:20 AM PDT [facility] LANDRYBILL[facility] HEAD WO | | CONTRAST11/22/2014 9:08 PM HISTORY:53 years. Male. Subdural hematoma. TECHNIQUE:5-mm | | axial noncontrast images were acquired from the foramen magnum through the cranial | | vertex. COMPARISON:CT head noncontrast 11/22/2014 performed at [facility]., | | 10/14/2014 FINDINGS:An extensive [...] EXTERNAL | | | | performed at [facility];[address] | [address] | LAB | | | | [address];[place], [place] | | | | | | [address] | | | | + + + + + + | RED CELL | 3.99 (L)Comment: Testing | 4.20 - 5.70 | EXTERNAL | | | COUNT | performed at [facility];[address] | M/uL | LAB | | | | [address];[place] | | | | | | [address] | | | | + + + + + + | Hgb | 12.4 (L)Comment: Testing | 13.2 - 17.0 | EXTERNAL | | | | performed at [facility];[address] | g/dL | LAB | | | | [address];[place] | | | | | | [address] | | | | + + + + + + | Hematocrit, | 37.9 (L)Comment: Testing | 39.0 - 50.0 % | EXTERNAL | | | POC | performed at [facility];[address] | | LAB | | | | [address];[place] | | | | | | [address] | | | | + + + + + + | MCV | 95.2Comment: Testing | 80.0 - 100.0 fl | EXTERNAL | | | | performed at [facility];[address] | | LAB | | | | [address];[place] | | | | | | [address] | | | | + + + + + + | MCH | 31.0Comment: Testing | 27.0 - 34.0 pg | EXTERNAL | | | | performed at [facility];[address] | | LAB | | | | [address];[place] | | | | | | [address] | | | | + + + + + + | MCHC | 32.6Comment: Testing | 32.0 - 35.5 | EXTERNAL | | | | performed at [facility];[address] | g/dL | LAB | | | | [address];[place] | | | | | | [address] | | | | + + + + + + | RDW-CV | 48.1Comment: Testing | 37 - 53 fl | EXTERNAL | | | | [facility] [facility];[address] | | LAB | | | | [address];[place] | | | | | | [address] | | | | + + + + + + | Platelet | 165Comment: Testing | 150 - 400 K/uL | EXTERNAL | | | Count | performed at [facility];888 | | LAB | | | Plasma | [address];[place] | | | | | | [address] | | | | + + + + + + | MPV | 9.5Comment: Testing | fl | EXTERNAL | | | | performed at [facility];[address] | | LAB | | | | [address];[place] | | | | | | [address] | | | | + + + + + + | Differentia | AUTOMATEDComment: | | EXTERNAL | | | l Type | Testing performed at | | LAB | | | | [facility];[address] | [address];[place] [address] | | | | + + + + + + | % Segmented | 79.71Comment: Testing | % | EXTERNAL | | | | performed at [facility];888 | | LAB | | | Neutrophils | [address];[place] | | | | | | [address] | | | | + + + + + + | % | 12.56Comment: Testing | % | EXTERNAL | | | Lymphocytes | performed at [facility];[address] | | LAB | | | | [address];[place] | | | | | | [address] | | | | + + + + + + | % Monocytes | 6.71Comment: Testing | % | EXTERNAL | | | | performed at [facility];[address] | | LAB | | | | [address];[place] | | | | | | [address] | | | | + + + + + + | % | 0.69Comment: Testing | % | EXTERNAL | | | Eosinophils | performed at [facility];[address] | | LAB | | | | [address];[place] | | | | | | [address] | | | | + + + + + + | % Basophils | 0.33Comment: Testing | % | EXTERNAL | | | | performed at [facility];[address] | | LAB | | | | [address];[place] | | | | | | [address] | | | | + + + + + + | Absolute | 7.64 (H)Comment: Testing | 1.90 - 7.40 | EXTERNAL | | | Segmented | performed at [facility];888 | K/uL | LAB | | | Neutrophils | [address];[place] | | | | | | [address] | | | | + + + + + + | Absolute | 1.20Comment: Testing | 1.00 - 3.90 | EXTERNAL | | | Lymphocytes | performed at [facility];888 | K/uL | LAB | | | | [address];[place] | | | | | | [address] | | | | + + + + + + | Absolute | 0.64Comment: Testing | 0.00 - 0.80 | EXTERNAL | | | Monocytes | performed at [facility];888 | K/uL | LAB | | | | [address];[place] | | | | | | [address] | | | | + + + + + + | Absolute | 0.07Comment: Testing | 0.00 - 0.50 | EXTERNAL | | | Eosinophils | performed at [facility];888 | K/uL | LAB | | | | [address];[place] | | | | | | [address] | | | | + + + + + + | Absolute | 0.03Comment: Testing | 0.00 - 0.10 | EXTERNAL | | | Basophils | performed at [facility];888 | K/uL | LAB | | | | [address];[place] | | | | | | [address] | | | | + + + [...] EXTERNAL | | | | performed at [facility];888 | mmol/L | LAB | | | | [address];[place] | | | | | | [address] | | | | + + + + + + | K | 4.0Comment: Testing | 3.5 - 4.9 | EXTERNAL | | | | performed at [facility];888 | mmol/L | LAB | | | | [address];[place] | | | | | | [address] | | | | + + + + + + | Cl | 105Comment: Testing | 99 - 109 mmol/L | EXTERNAL | | | | performed at [facility];[address] | | LAB | | | | [address];[place] | | | | | | [address] | | | | + + + + + + | CO2 | 25Comment: Testing | 23 - 32 mmol/L | EXTERNAL | | | | performed at [facility];[address] | | LAB | | | | [address];[place] | | | | | | [address] | | | | + + + + + + | Anion Gap | 12Comment: Testing | 5 - 20 mmol/L | EXTERNAL | | | | performed at [facility];[address] | | LAB | | | | [address];[place] | | | | | | [address] | | | | + + + + + + | Glucose, | 114 (H)Comment: Testing | 65 - 99 mg/dL | EXTERNAL | | | Fasting | performed at [facility];[address] | | LAB | | | | [address];[place] | | | | | | [address] | | | | + + + + + + | BUN | 4 (L)Comment: Testing | 8 - 25 mg/dL | EXTERNAL | | | | performed at [facility];[address] | | LAB | | | | [address];[place] | | | | | | [address] | | | | + + + + + + | Creatinine | 0.73Comment: Testing | 0.70 - 1.30 | EXTERNAL | | | | performed at [facility];888 | mg/dL | LAB | | | | [address];[place] | | | | | | [address] | | | | + + + + + + | BUN/Creatin | 5Comment: Testing | | EXTERNAL | | | ine Ratio | performed at [facility];888 | | LAB | | | | [address];[place] | | | | | | [address] | | | | + + + + + + | Calcium | 8.3 (L)Comment: Testing | 8.5 - 10.5 | EXTERNAL | | | | performed at [facility];888 | mg/dL | LAB | | | | [address];[place] | | | | | | [address] | | | | + + + + + + | Protein, | 7.7Comment: Testing | 6.3 - 8.2 g/dL | EXTERNAL | | | Total | performed at [facility];[address] | | LAB | | | | [address];[place] | | | | | | [address] | | | | + + + + + + | Albumin | 3.3 (L)Comment: Testing | 3.6 - 5.0 g/dL | EXTERNAL | | | | performed at [facility];[address] | | LAB | | | | [address];[place] | | | | | | [address] | | | | + + + + + + | Globulin | 4.4Comment: Testing | 1.3 - 4.9 g/dL | EXTERNAL | | | | performed at [facility];[address] | | LAB | | | | [address];[place] | | | | | | [address] | | | | + + + + + + | A/G Ratio | 0.7 (L)Comment: Testing | 1.0 - 2.4 | EXTERNAL | | | | performed at [facility];[address] | | LAB | | | | [address];[place] | | | | | | [address] | | | | + + + + + + | Bilirubin | 0.3Comment: Testing | 0.1 - 1.5 mg/dL | EXTERNAL | | | Total | performed at [facility];[address] | | LAB | | | | [address];[place] | | | | | | [address] | | | | + + + + + + | ALP, | 137 (H)Comment: Testing | 35 - 115 U/L | EXTERNAL | | | External | performed at [facility];[address] | | LAB | | | | [address];[place] | | | | | | [address] | | | | + + + + + + | AST | 37Comment: Testing | 10 - 45 U/L | EXTERNAL | | | | performed at [facility];[address] | | LAB | | | | [address];[place] | | | | | | [address] | | | | + + + + + + | ALT | 37Comment: Testing | 10 - 65 U/L | EXTERNAL | | | | performed at [facility];[address] | | LAB | | | | [address];[place], [place] | | | | | | [address] | | | | + + + [...] | | | | | | at [facility];[address] [facility] | | | | | | Blvd;[place] [address] | | | | + + + [...]
--- OUTSIDE RECORDS SUMMARY | ~2019-09-09 | XMS | Encounter Summary ---
Demographics + + + | Address | [address] | | | [place] [address] | + + + | Home Phone | | + + + | Preferred Language | Unknown | + + + | Marital Status | Single | + + + | Catholic Affiliation | Unknown | + + + | Race | White | + + + | Ethnic Group | Not or | + + + Author + + + | Author | [facility] | + + + | Organization | [facility] | + + + | [...] Team Providers + +------+ + | Care Line Out Worker Name | Role | Phone | + +------+ + PCP | Unavailable | + +------+ + Encounter Details +--------+ + + + + | Date | Type | Department | Care Team | Description | +--------+ + + + + | 02/19/ | Documentati | Anesthesiology | Unknown . | | | 2002 | on | [address] | | | | | | [place], | | | | | | [place] [address] | | | +--------+ + + + [...] | + +--------+ + + + | ANESTHESIA/SEDATION | | 02/19/2003 | | Results for this | | | | 10:45 AM | | procedure are in the | | | | PDT | | results section. | + +--------+ + + + documented in this encounter Results ANESTHESIA/SEDATION (02/19/2003 10:45 AM PDT) + + + | Narrative | Performed At | + + + | Ordered by an unspecified provider. | | + + + + + | Transcriptions | + + | 02/19/2003 10:45 AM PDT Anesthesia PostOp Report | | | | Patient: EVANS ASTORGA Med Rec: [id number] Sex M Bdate: 1960 | | Date/Time Data | | Entered Into [facility] | | Anesth PostOp | | Surgery Date [id number] 02/19/03 10:45 | | Anesthesiologist BARRETT HELLER 02/19/03 10:45 | | | + + documented in this encounter Visit Diagnoses Not on filedocumented in this encounter"
--- OUTSIDE RECORDS SUMMARY | ~2019-09-09 | XMS | Encounter Summary ---
Demographics + + + | Address | [address] | | | [place] [address] | + + + | Home Phone [...] + + + | Author | [facility] | + + + | Organization | [facility] | + + + | Address [...] Team Providers + +------+ + | Care Foxing Painter Name | Role | Phone | + +------+ + PCP | Unavailable | + +------+ + Encounter Details +--------+ + + + + | Date | Type | Department | Care Team | Description | +--------+ + + + + | 12/27/ | Abstract | Digestive Health | Azeem Dietrich | | | 2011 | | [place] [address] [address] | MD Travis [address] | | | | | [address] | [place], [place] | | | | | Mailcode: [id number] | [address] | | | | | [facility] | [phone] | | | | | and [address], | | | | | | [address] | | | | | | [place], [place] | | | | | | [address] | | | | | | [phone] | | | +--------+ + + + [...]
--- OUTSIDE RECORDS SUMMARY | ~2019-09-09 | XMS | Clinical Summary ---
Demographics + + + | Address | [address] | | | [place] [address] | + + + | Home Phone | | + + + | Preferred Language | Unknown | + + + | Marital Status | Single | + + + | Episcopalian Affiliation [...] Team Providers + +------+ + | Care Watch Parts Inspector Name | Role | Phone | + +------+ + PCP | Unavailable | + +------+ + Source Comments BATS[facility]VA is fully live on both [facility] and [facility]3] Allergies + + + + + + [...] | | | + +--------+ +--------+-------+---------+--------+ | [facility] | | xxxx | Effect | [...] | 1961 | [phone] | [place] [address] | | | ryan | | | 0 (Home) | | + +--------+ +--------+ + + | Astrid Sánchez | Agency | Self | [birth year] | [address] | | [address] | | | 1961 | [phone] | [place] [address] | | | | | | 0 (Home) | | + +--------+ +--------+ + +
--- OUTSIDE RECORDS SUMMARY | ~2019-09-09 | XMS | Encounter Summary ---
Demographics + + + | Address | [address] | | | [place] [address] | + + + | Home Phone | | + + + | Preferred Language | Unknown | + + + | Marital Status | | + + + | Quaker Affiliation | Unknown | + + + | Race | Unknown | + + + | Ethnic Group | Unknown | + + + Author + + + | Author | [facility] | | | and [place] | + + + | Organization | [facility] | | | and [place] | + + + | Address | Unknown | + + + | Phone | Unavailable | + + + Support + + +---------+ + | Name | Relationship | Address | Phone | + + +---------+ + | Teressa Fortune | ECON | Unknown | | + + +---------+ + | Jay Jay Dveika | ECON | Unknown | + | + + +---------+ + | Teressa Edouardcharlene | ECON | Unknown | + | + + +---------+ + Care Team Providers + +------+ + | Care Materials And Processes Manager Name | Role | Phone | + +------+ + | Mason Oliveira DO | PCP | | + +------+ + Reason for Visit +--------+ + | Reason | Comments | +--------+ + | Other | cancelling appointment | +--------+ + Encounter Details +--------+ + + + + | Date | Type | Department | Care Team | Description | +--------+ + + + + | 07/06/ | Telephone | [facility] | Tony Yuan, | Other (cancelling | | 2019 | | Orthopedics [address] | appointment ) | | | | [address] | [facility] [address] | | | | | [place], [place] | [place] [address] | | | | | [address] | [phone] | | | | | [phone] | | | +--------+ + + + [...]
--- OUTSIDE RECORDS SUMMARY | ~2019-09-09 | XMS | Encounter Summary ---
Demographics + + + | Address | [address] | | | [place] [address] | + + + | Home Phone [...] Author + + + | Author | [facility] | + + + | Organization | [facility] | + + + | Address [...] Team Providers + +------+ + | Care Retread Mold Operator Name | Role | Phone | + +------+ + | Anny Ennis DO | PCP | Unavailable | + +------+ + Reason for Visit + + + | Reason | Comments | + + + | Medical Records | requested from Dr. Ennis's office | | Review | | + + + Encounter Details +--------+ + + + + | Date | Type | Department | Care Team | Description | +--------+ + + + + | 12/03/ | Documentati | Clinical | Kennedi Doyle | Medical Records | | 2009 | on | Transplant Services | Kuldeep RN [address] | Review (requested | | | | [address] | [address] | from Dr. Ennis's | | | | [place] [facility], | [place], [place] | office) | | | | [place] [address] | [address] | | | | | [phone] | | | +--------+ + + + [...]
--- OUTSIDE RECORDS SUMMARY | ~2019-09-09 | XMS | Encounter Summary ---
Demographics + + + | Address | [address] | | | [place] [address] | + + + | Home Phone | | + + + | Preferred Language | Unknown | + + + | Marital Status | Single | + + + | Lutheran Affiliation | Unknown | + + + | Race | White | + + + | Ethnic Group | Not or | + + + Author + + + | Author | [facility] | + + + | Organization | [facility] | + + + | Address | Unknown | + + + | Phone | Unavailable | + + + Support + + +---------+ + | Name | Relationship | Address | Phone | + + +---------+ + | Jay Jya & Teressa | ECON | Unknown | | | [place] | | | | + + +---------+ + Care Team Providers + +------+ + | Care Safety Trainer Name | Role | Phone | + +------+ + | Anny Ennis DO | PCP | Unavailable | + +------+ + Encounter Details +--------+------+ + + + | Date | Type | Department | Care Team | Description | +--------+------+ + + + | 03/13/ | Lab | Laboratory at [facility] | | Cirrhosis (HCC) | | 2009 | | [address] | | | | | | [place], [place] | | | | | | [address] | | | | | | [phone] | | | +--------+------+ + + + Social History + +-------+ [...] | + +--------+ + + + | ETHYL GLUCURONIDE, | Routin | 03/13/2010 | Cirrhosis (HCC) | Results for this | | URINE | e | 9:50 AM | | procedure are in the | | | | PDT | | results section. | + +--------+ + + + | INR | Routin | 03/13/2010 | Cirrhosis (HCC) | Results for this | | | e | 9:50 AM | | procedure are in the | | | | PDT | | results section. | + +--------+ + + + | COMPLETE METABOLIC | Routin | 03/13/2010 | Cirrhosis (HCC) | Results for this | | SET | e | 9:50 AM | | procedure are in the | | (NA,K,CL,CO2,BUN,CRE | | PDT | | results section. | | AT,GLUC,CA,AST,ALT,B | | | | | | ELDER TOTAL,ALK | | | | | | PHOS,ALB,PROT TOTAL) | | | | | + +--------+ + + + | CBC ONLY | Routin | 03/13/2010 | Cirrhosis (HCC) | Results for this | | | e | 9:50 AM | | procedure are in the | | | | PDT | | results section. | + +--------+ + + + | ALPHA-FETOPROTEIN | Routin | 03/13/2010 | Cirrhosis (HCC) | Results for this | | TUMOR MARKER, SERUM | e | 9:50 AM | | procedure are in the | | | | PDT | | results section. | + +--------+ + + + | FERRITIN | Routin | 03/13/2010 | Cirrhosis (HCC) | Results for this | | | e | 9:50 AM | | procedure are in the | | | | PDT | | results section. | + +--------+ + + + | HEPATITIS B SURFACE | Routin | 03/13/2010 | Cirrhosis (HCC) | Results for this | | AG, SERUM | e | 9:50 AM | | procedure are in the | | | | PDT | | results section. | + +--------+ + + + | HEPATITIS B CORE AB, | Routin | 03/13/2010 | Cirrhosis (HCC) | Results for this | | SERUM | e | 9:50 AM | | procedure are in the | | | | PDT | | results section. | + +--------+ + + + | HEPATITIS C VIRUS | Routin | 03/13/2010 | Cirrhosis (HCC) | Results for this | | W/CONFIRMATION | e | 9:50 AM | | procedure are in the | | | | PDT | | results section. | + +--------+ + + + | IRON AND TIBC, SERUM | Routin | 03/13/2010 | Cirrhosis (HCC) | Results for this | | | e | 9:50 AM | | procedure are in the | | | | PDT | | results section. | + +--------+ + + + | BILE ACIDS, TOTAL | Routin | 03/13/2010 | Cirrhosis (HCC) | Results for this | | | e | 9:50 AM | | procedure are in the | | | | PDT | | results section. | + +--------+ + + + documented in this encounter Results IRON AND TIBC, SERUM [...] Way [facility]) [facility] | REGIONAL | | [place] [address] | LABORATORY | | [place] [address] | | + + + + + + + + | Performing | Address | City/State/Zipcode | Phone Number | | Organization | | | | + + + + + | [facility] | [address] | [place] [address] | | | LABORATORY | | | [...] | LABORATORY | | | | at [facility], | | | | | | [place], [place]. | | | | + + + + + + + + | Specimen | + + | Blood - Blood | + + + + + | Narrative | Performed At | + + + | [facility] | [facility] | | [place] [address] | REGIONAL | | [place] [address] | LABORATORY | + + + + + + + + | Performing | Address | City/State/Zipcode | Phone Number | | Organization | | | | + + + + + | [facility] | [address] | [place] [address] | | | LABORATORY | | | [...] | | | | | validated by [facility]. | | | | | | Test performed by: | | | | | | [facility] | | | | | | Services [address] | | | | | | [place] | | | | | | [address] | | | | + + + + + + + + | Specimen | + + | Urine - Urine | + + + + + + + | Performing | Address | City/State/Zipcode | Phone Number | | Organization | | | | + + + + + | [facility] | [address] | [place], [place] | | | [facility] [facility] | | [address] | | + + + + + [...] At | + + + | [facility] | [facility] | | [place] [address] | REGIONAL | | [place] [address] | LABORATORY | + + + + + + + + | Performing | Address | City/State/Zipcode | Phone Number | | Organization | | | | + + + + + | [facility] | [address] | [place] [address] | | | LABORATORY | | | [...] At | + + + | [facility] ([facility]) [place] | [place] | | [place] [address] [place] [facility] | [facility] | | [place] [address] | LABORATORY | + + + + + + + + | Performing | Address | City/State/Zipcode | Phone Number | | Organization | | | | + + + + + | [facility] | [address] | [place] [address] | | | LABORATORY | | | [...] At | + + + | [facility] [place] | [place] | | [place] [address] | REGIONAL | | [place] [address] | LABORATORY | + + + + + + + + | Performing | Address | City/State/Zipcode | Phone Number | | Organization | | | | + + + + + | [facility] | [address] | [place] [address] | | | LABORATORY | | | [...] by | | | | | | [email or web address], | | | | | | | | | | | | [address] | | | | | | [place] [address] | | | | | | [phone] | | | | | | | | | | | | [email or web address], | | | | | | Magui [...] [facility] | [address] | [place], [place] | | | [facility] | | [address] | | + + + + + [...] | + + + | [facility]) [place] | [place] | | [place] [address] [facility] [address] | DEPARTMENT | | [place] [address] | PATHOLOGY | + + + + + + + + | Performing | Address | City/State/Zipcode | Phone Number | | Organization | | | | + + + + + | [facility] DEPARTMENT OF | [address] | [place] [address] | | | PATHOLOGY | [address] [...] | + + + + + | [facility] DEPARTMENT OF | [address] | [place] [address] | | | PATHOLOGY | [address] | | | + + + + + INR (03/13/2010 9:50 AM PDT) + + + + + + | Component | Value | Ref Range | Performed | Pathologist | | | | | At | Signature | + + + + + + | INR | 1.19Comment: | 0.90 - 1.20 INR | [facility] | | | | INR Therapeutic ranges [...] | + + + + + | [facility] | [address] | [place] [address] | | | PATHOLOGY | [address] [...] | | | DEPARTMENT | | | YEMENI | | | OF | | | [...] | + + + + + | [facility] | [address] | [place] [address] | | | PATHOLOGY | [address] | | | + + + + + documented in this encounter Visit Diagnoses + + | Diagnosis | + + | 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
--- OUTSIDE RECORDS SUMMARY | ~2019-09-09 | XMS | Encounter Summary ---
Demographics + + + | Address | [address] | | | [place] [address] | + + + | Home Phone | | + + + | Preferred Language | Unknown | + + + | Marital Status | Single | + + + | Church Affiliation | Unknown | + + + [...] Team Providers + +------+ + | Care Glassware Verifier Name | Role | Phone | + [...] + + | 09/23/ | Emergency | [facility] | | | | 2009 | | Department [address] | | | | | [address] | | | | | | [facility] | | | | | | [place], [place] | | | | | | [address] | | | | | | [phone] | | | +--------+ + + + [...]
--- OUTSIDE RECORDS SUMMARY | ~2019-09-09 | XMS | Encounter Summary ---
Demographics + + + | Address | [address] | | | [place] [address] | + + + | Home Phone | | + + + | Preferred Language | Unknown | + + + | Marital Status | | + + + | Amish Affiliation | Unknown | + + + | Race | Unknown | + + + | Ethnic Group | Unknown | + + + Author + + + | Author | [facility] | | | and [place] | + + + | Organization | [facility] | | [...] Team Providers + +------+ + | Care Color Maker Dyer Name | Role | Phone | + +------+ + PCP | Unavailable | + +------+ + Encounter Details +--------+ + + + + | Date | Type | Department | Care Team | Description | +--------+ + + + + | 07/18/ | Hospital | [facility] | Conversion | Intracranial injury | | 2015 | Encounter | [facility] [address] | Transaction, | of other and | | | | [address] | Provider Unknown | unspecified nature, | | | | [place], [place] | | without mention of | | | | [address] | (Fax) | open intracranial | | | | [phone] | | wound, unspecified | | | [...] Rad Conversion - 05/05/2019 12:20 AM PDT HISTORY:Cranial [...]
--- OUTSIDE RECORDS SUMMARY | ~2019-09-09 | XMS | Encounter Summary ---
Demographics + + + | Address | [address] | | | [place] [address] | + + + | Home Phone [...] Author + + + | Author | [facility] | + + + | Organization | [facility] | + + + | [...] Team Providers + +------+ + | Care Practicing Dermatologist Name | Role | Phone | + [...] | | | | [address] [place], | [place], [place] | | | | | [place] [address] | [address] | | | | | [phone] | | | +--------+ + + + [...]
--- OUTSIDE RECORDS SUMMARY | ~2019-09-09 | XMS | Encounter Summary ---
Demographics + + + | Address | [address] | | | [place] [address] | + + + | Home Phone [...] Author + + + | Author | [facility] | + + + | Organization | [facility] | + + + | [...] Providers + +------+ + | Care Clinical Trial Associate Name | Role | Phone | + +------+ + PCP | Unavailable | + +------+ + Encounter Details +--------+ + + + + | Date | Type | Department | Care Team | Description | +--------+ + + + + | 02/17/ | Results | Orthopaedics at | [place], | | | 2002 | Only | [facility] [address] | MD [address] | | | | | [address] | | | | | | Mailcode: PV430 | | | | | | [facility] | | | | | | [place], [place] | | | | | | [address] | | | | | | [phone] | | | +--------+ + + + [...] for this | | RIGHT | | 12:44 PM | | procedure are in the | | | | PDT | | results section. | + +--------+ + + + documented in this encounter Results ANKLE 3 VIEWS RIGHT (02/17/2003 12:44 PM PDT) + + + + + + | Component | Value | Ref Range | Performed | Pathologist | | | | | At | Signature | + + + + + + | ANKLE 3 | Radiologist 1: | | | | | VIEWS RIGHT | HIPOLITO CHARLES, | | | | | | M.DGrisRIGHT ANKLE: | | | | | | 02/17/2003 at 1240 | | | | | | hours Dictated: | | | | | | 02/18/2003 TECHNIQUE: | | | | | | Three views. COMPARISON: | | | | | | Comparison is | | | | | | 02/17/2003 at 0415 | | | | | | hours. FINDINGS: The | | | | | | distal severe fracture | | | | | | has been transfixed by | | | | | | lateralplate and screws | | | | | | in normal postoperative | | | | | | alignment. The ankle | | | | | | mortiseis in normal | | | | | | postoperative alignment. | | | | | | There is minimal | | | | | | widening of thedistal | | | | | | tibiofibular | | | | | | syndesmosis. No other | | | | | | fractures are | | | | | | identified.The ankle is | | | | | | in a splint. IMPRESSION: | | | | | | 1. Operative | | | | | | reduction and internal | | | | | | fixation of oblique | | | | | | distal fibularfracture | | | | | | in normal postoperative | | | | | | alignment. 2. Near | | | | | | anatomic alignment of | | | | | | ankle mortise and | | | | | | tibiotalar joint. END | | | | | | OF IMPRESSION: | | | | + + + + + + + + | Specimen | + + | | + + + +---------+ + + | Performing | Address | City/State/Zipcode | Phone Number | | Organization | | | | + +---------+ + + | [place] [facility] | | | | [facility] | | | | + +---------+ + + documented in this encounter Visit Diagnoses Not on filedocumented in this encounter"
--- OUTSIDE RECORDS SUMMARY | ~2019-09-09 | XMS | Encounter Summary ---
Demographics + + + | Address | [address] | | | [place] [address] | + + + | Home Phone | | + + + | Preferred Language | Unknown | + + + | Marital Status | | + + + | Gnosticism Affiliation [...] Team Providers + +------+ + | Care Court Abstractor Name | Role | Phone | + +------+ + PCP | Unavailable | + +------+ + Encounter Details +--------+ + + + + | Date | Type | Department | Care Team | Description | +--------+ + + + + | 09/11/ | Hospital | [facility] | Rosa Isela Vásquez, | End Stage Renal | | 2008 - | Encounter | [facility] | [address] | Disease (HCC) | | | | CARE FLOOR [address] | [facility] [address], | | | 09/16/ | | [address] | [place] [address] | | | 2008 | | [place], [place] | [phone] | | | | | [address] | | | | | | [phone] | Maria Luisa Barry, | | | | | | [address] | | | | | | [place] [address] | | | | | | [phone] | | | | | | | [...] Performed At | + + + | [facility] | | | [facility] [address] | | | , | | | [id number]/RADIOLOGY Patient Name: EVANS MCGUIRE Date of | | | : 1960 Medical Record: [id number] Account: | | | [id number] I/P/JAZMÍN / Exam Date/Time: | | | [...] P A | | | 10:28 A /boom/[id number]/ cc: MD GIGI GARCIA | | | MD PEPITO | | + + + + + | Procedure Note | + + | Marlon Santamaria Conversion - 05/14/2019 10:02 PM PDT | | [facility] | | [facility] [address] | | , | | | | [id number]/RADIOLOGY | | | | Patient Name: EVANS MCGUIRE | | Date of : 1960 | | Medical Record: [id number] | | Account: [id number] | | I/P/[facility] / | | | | | [...] | A | | A | | /boom/[id number]/ | | cc: JEFF AMANDA MD | | GIGI BEYER MD | + + XR Abdomen AP (09/12/2009 12:11 PM PST) + + | Specimen | + + | | + + + + + | Narrative | Performed At | + + + | [facility] | | | [facility] [address] | | | , | | | [id number]/RADIOLOGY Patient Name: EVANS MCGUIRE Date of | | | : 1960 Medical Record: [id number] Account: | | | [id number] I/P/[facility] / Exam Date/Time: | | | [...] | | | 09/12/2009 01:48 P P J/carlota/[id number]/ cc: | | | MD GIGI ARTHUR MD | | + + + + + | Procedure Note | + + | Marlon Santamaria Conversion - 05/14/2019 10:02 PM PDT | | [facility] | | [facility] [address] | | , | | | | [id number]/RADIOLOGY | | | | Patient Name: EVANS MCGUIRE | | Date of : 1960 | | Medical Record: [id number] | | Account: [id number] | | I/P/CCC / | | | [...] | P | | P | | BRIAN/carlota/[id number]/ | | cc: JOE CASILLAS MD | | GIGI BEYER MD | + + MRI Brain Wo MRA Head Wo (09/12/2009 11:17 AM PST) + + | Specimen | + + | | + + + + + | Narrative | Performed At | + + + | [facility] | | | [facility] [address] | | | , | | | [id number]/RADIOLOGY Patient Name: EVANS MCGUIRE Date of | | | : 1960 Medical Record: [id number] Account: | | | [id number] I/P/JAZMÍN / Exam Date/Time: | | | [...] DT: | | | 09/12/2009 11:55 A [facility]/[id number]/ cc: JOE CASILLAS MD | | | MD GIGI TOSCANO MD | | + + + + + | Procedure Note | + + | Marlon Santamaria Conversion - 05/14/2019 10:02 PM PDT | | [facility] | | [facility] [address] | | , | | | | [id number]/RADIOLOGY | | | | Patient Name: EVANS MCGUIRE | | Date of : 1960 | | Medical Record: [id number] | | Account: [id number] | | I/P/[facility] / | | | | | [...] | A | | A | | [facility]/[id number]/ | | cc: JOE CASILLAS MD | | MARIA LUISA BARRY MD | | GIGI BEYER MD | + + XR Chest 1 Vw (09/12/2009 5:40 AM PST) + + | Specimen | + + | | + + + + + | Narrative | Performed At | + + + | [facility] | | | [facility] [address] | | | , | | | [id number]/Diagnostic Outsourced Patient Name: EVANS MCGUIRE | | | Date of : 1960 Medical Record: [id number] Account: | | | [id number] I/P/[facility] / Exam Date/Time: | | | [...] A A | | | 09:19 A RONALD/ccv/[id number]/ cc: MD LYNNE TOSCANO | | | MD GIGI VILLEGAS MD | | + + + + + | Procedure Note | + + | Marlon Santamaria Conversion - 05/14/2019 10:02 PM PDT | | [facility] | | [facility] [address] | | , | | | | [id number]/Diagnostic Outsourced | | | | Patient Name: EVANS MCGUIRE | | Date of : 1960 | | Medical Record: [id number] | | Account: [id number] | | I/P/[facility] / | | | | | [...] | A | | A | | MM/ccv/[id number]/ | | cc: MARIA LUISA BARRY MD | | LYNNE VILLEGAS MD | | GIGI BEYER MD | + + CT Head wo Contrast (09/12/2009 2:49 AM PST) + + | Specimen | + + | | + + + + + | Narrative | Performed At | + + + | [facility] | | | [facility] [address] | | | , | | | [id number]/Diagnostic Outsourced Patient Name: EVANS MCGUIRE | | | Date of : 1960 Medical Record: [id number] Account: | | | [id number] I/P/[facility] / Exam Date/Time: | | | [...] A A | | | 08:58 A MM/onel/[id number]/ cc: MD LYNNE TOSCANO | | | MD GIGI VILLEGAS MD | | + + + + + | Procedure Note | + + | Marlon Santamaria Conversion - 05/14/2019 10:02 PM PDT | | [facility] | | [facility] [address] | | , | | | | [id number]/Diagnostic Outsourced | | | | Patient Name: EVANS MCGUIRE | | Date of : 1960 | | Medical Record: [id number] | | Account: [id number] | | I/P/[facility] / | | | | | [...] | A | | A | | MM/onel/[id number]/ | | cc: MARIA LUISA BARRY MD | | LYNNE VILLEGAS MD | | GIGI BEYER MD | + + XR Chest 1 Vw (09/11/2009 8:25 PM PST) + + | Specimen | + + | | + + + + + | Narrative | Performed At | + + + | [facility] | | | [facility] [address] | | | , | | | [id number]/RADIOLOGY Patient Name: EVANS MCGUIRE Date of | | | : 1960 Medical Record: [id number] Account: | | | [id number] I/P/[facility] / Exam Date/Time: | | | [...] | | | 09/11/2009 11:01 P P DTB/gf/[id number]/ cc: | | | MD MARIA LUISA LITTLE MD HANI S | | | MD PEPITO | | + + + + + | Procedure Note | + + | Marlon Santamaria Conversion - 05/14/2019 10:02 PM PDT | | [facility] | | [facility] [address] | | , | | | | [id number]/RADIOLOGY | | | | Patient Name: EVANS MCGUIRE | | Date of : 1960 | | Medical Record: [id number] | | Account: [id number] | | I/P/CCC / | | | [...] above the level of the | | laecy. The lungs are expanded. No pneumothorax and [...] | P | | P | | DTB//[id number]/ | | cc: RONNY RAYA MD | | MARIA LUISA BARRY MD | | GIGI BEYER MD | + + documented in this encounter Visit Diagnoses + + | Diagnosis | + + | End stage renal disease (HCC) End stage renal disease | + + documented in this encounter"
--- OUTSIDE RECORDS SUMMARY | ~2019-09-09 | XMS | Encounter Summary ---
Demographics + + + | Address | [address] | | | [place] [address] | + + + | Home Phone | | + + + | Preferred Language | Unknown | + + + | Marital Status | | + + + | Presybeterian Affiliation | Unknown | + + + | Race | Unknown | + + + | Ethnic Group | Unknown | + + + Author + + + | Author | [facility] | | | and [facility] | + + + | Organization | [facility] | | | [...] Team Providers + +------+ + | Care Post Secondary Professional Name | Role | Phone | [...] | OP [address] | [place] [address] | | | | | [place] | [phone] | | | | | [address] | | | | | | [phone] | Ha Herrmann, | | | | | | STEAM BRUSH OPERATOR [address] | | | | | | [place] [address] | | | | | | [phone] | | | | | | | [...] +----+---+ + + | | 0 | [place] | | | | 9 | 43-degrees [...] +----+---+ + + | | 1 | [place] off | | | | 0 | [...] 20 gauge; other (see comments); | | Lubricator Granulator | | | lost patency; 06/22/19; 1003 [...]
--- OUTSIDE RECORDS SUMMARY | ~2019-09-09 | XMS | Encounter Summary ---
Demographics + + + | Address | [address] | | | [place] [address] | + + + | Home Phone | | + + + | Preferred Language | Unknown | + + + | Marital Status | | + + + | Taoist Affiliation | Unknown | + + + | Race | Unknown | + + + | Ethnic Group | Unknown | + + + Author + + + | Author | [facility] | | | and Olegarioana | + + + | Organization | [facility] | | | [...] Team Providers + +------+ + | Care Enterprise [employer] Architect Name | Role | Phone | + +------+ + PCP | Unavailable | + +------+ + Encounter Details +--------+ + + + + | Date | Type | Department | Care Team | Description | +--------+ + + + + | 10/11/ | Hospital | [facility] | Chong, | Alcohol abuse; | | 2015 - | Encounter | [facility] [address] | Anthony HENRIQUEZ MD | Comatose ([facility]); | | | | [address] | [phone] | Frequent falls; | | 10/29/ | | | [place] [address] | Seizure ([facility]); | | 2014 | | [phone] | [phone] | Alcohol withdrawal | | | | [phone] | | (HCC); Cerebral | | | | | | edema ([facility]); | | | | | | Subdural hematoma, | | | | | | post-traumatic, | | | | | | sequela ([facility]); | | | | | | Traumatic brain | | | | | | injury, closed, | | | | | | sequela ([facility]) | +--------+ + + + + [...] 1127 Date of Service: 11/12/141123 Status: Signed Nutritional Services Cook: Cecilio Bravo MD (Physician) [facility] Service: Hospitalist Discharge Summary Date of [...] and multiple falls. Per ED report from [facility]: he was drinking earlier today at home and fell twice. He went to bed and then he was noted to be having what they thought was seizure activity and th ey could not wake him and called EMS. He was taken to the ED at [facility] in [place] then transferred to the ED here for [...] and multiple falls who was transferred from [facility] due to a fall, seizures . [...] placement to improve s trength and mobility. industrial retrofit designer are working on finding placement which may take few days, however if accepted then can be discharged for rehabilitation Events Overnight: 2/2 pt still somewhat confused, thought he was in [place]. He knew that he fell, but didn [...] scussion. CM routed updated medical notes to [facility] and [facility]. PT recommending SNF. Lewis Christy spoke w/ Tyler at [facility] and Mary Beth at [facility], efaxed updated medical information, bot h are [...] at this time; planned for placement in [place] once patient is off sitter for 48 hrs. Otherwise patient continues to interact appropriately at this time and no impulsiveness is shown. Patient is mostly in chair or in bed and sleeping. 10/27 pt is alert today, no complications. Continue with PT. Pt without sitter. Pending place ment still. 10/28 planning re-evaluation of patient's status for admission to [place]. Pt otherwise is not impulsive, mostly calm [...] FOR BLEED; Surgeon: Anthony Chong MD; Location: [facility] OR; Service: Neurosurgery; Laterality: Right; Craniectomy Right 10/11/2014 Procedure: CRANIECTOMY; Surgeon: Anthony Cohng MD; Location: [facility] OR; Ser vice: Neurosurgery; Laterality: Right; Allergies [...] No discharge procedures on file. 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 You may get the following medications from [...] 10/29/141122 Date of Service: 10/29/141122 Status: Signed Nutritional Services Cook: Cecilio Bravo MD (Physician) [facility] Service: Hospitalist Progress Note Hospital Day: LOS: 18 days Post-Op Day: 11 Days Post-Op SUBJECTIVE Patient Summary: Per ICU note: The patient is a 53 y.o. male with significant past medical history of chronic alcohol abus e and multiple falls. Per ED report from [facility]: he was drinking earlier today at home and fell twice. He went to bed and then he was noted to be having what they thought was seizure activity and th ey could not wake him and called EMS. He was taken to the ED at [facility] in [place] a nd then transferred to [...] and multiple falls who was transferred from [facility] due to a fall, seizures . [...] placement to improve s trength and mobility. industrial retrofit designer are working on finding placement which may take few days, however if accepted then can be discharged for rehabilitation Events Overnight: 2/2 pt still somewhat confused, thought he was in [place]. He knew that he fell, but didn [...] Oct 17 2014 7:38AM Referring Provider Line: [phone] ID: [id number] Ct Head Without Contrast 10/16/2014 [...] Oct 16 2014 6:08AM Referring Provider Line: [phone] E ID: [id number] PROBLEM LIST ASSESSMENT & [...] iscussion. CM routed updated medical notes to [facility] and [facility]. PT recommending SNF. CM spoke w/ Tyler at [facility] and Mary Beth at [facility], efaxed updated medical information, grace th are [...] at this time; planned for placement in [place] once patient is off sitter for 48 hrs. Otherwise patient continues to interact appropriately at this time and no impulsiveness is shown. Patient is mostly in chair or in bed and sleeping. 10/27 pt is alert today, no complications. Continue with PT. Pt without sitter. Pending plac ement still. 10/28 planning re-evaluation of patient's status for admission to [place]. Pt otherwise is not impulsive, mostly calm [...] this encounter Progress Notes Emilie Sutherland MS CCC-ADMINISTRATIVE DIRECTOR - 10/29/2014 3:00 PM PSTFormatting of this note might be diffe rent from the original. Therapy Progress Note by Emilie Sutherland MS CCC-ADMINISTRATIVE DIRECTOR at 10/29/14 1500 Author: Emilie Sutherland MS CCC-ADMINISTRATIVE DIRECTOR Service: (none) Author Type: Speech Therapist Filed: 10/29/14 1507 Date of Service: 10/29/14 1500 Status: Signed Nutritional Services Cook: Emilie Sutherland MS CCC-ADMINISTRATIVE DIRECTOR (Speech Therapist) 10/29/14 1500 ADMINISTRATIVE DIRECTOR Last Visit ADMINISTRATIVE DIRECTOR Received On 10/29/14 Requires ADMINISTRATIVE DIRECTOR Follow Up No pt is being discharged from the hospital shortly. onversion T ransaction, Provider Unknown - 10/29/2014 11:18 AM PSTFormatting of this note might be diffe rent from the original. Case Management by TABITHA Armstrong at 10/29/14 1118 Author: TAIBTHA Armstorng Service: (none) Author Type: Packing Shed Supervisor Filed: 10/29/14 1119 Date of Service: 10/29/14 1118 Status: Signed Nutritional Services Cook: TABITHA Armstrong (Packing Shed Supervisor) TELMA faxed MD's discharge orders to [facility] and arranged for a copy of pt's chart to be sent with pt. TELMA arranged for ambulance transport due to pt's confusion and risk of re-in jury of Subdural Hematoma/Craniotomy . CM notified pt & family of the discharge time. Pt had no other resource concerns. Discharge Plan: [facility] Jem NEILSW onver alem Transaction, Provider Unknown - 10/29/2014 10:35 AM PST Therapy Progress Note by ИВАН Elaine at 10/29/14 1035 Author: ИВАН Elaine Service: (none) Author Type: Massage Therapist Filed: 10/29/14 1035 Date of Service: 10/29/14 1035 Status: Signed Nutritional Services Cook: ИВАН Elaine (Massage Therapist) 10/29/14 1035 Massage Therapy Interventions Locations Back;Neck;Shoulder Massage Therapy Technique Effleurage;Petrissage;Malaysian massage Response to treatment Decreased muscle tension onver alem Transaction, Provider Unknown - 10/29/2014 10:05 AM PST Nurse Progress Note by Angelina Meade RN at 10/29/14 1005 Author: Angelina Meade RN Service: (none) Author Type: Registered Nurse Filed: 10/29/14 1044 Date of Service: 10/29/14 100 Status: Signed Nutritional Services Cook: Angelina Meade RN (Registered Nurse) Report given to MICHELL Corral at [facility] orcas Cintron, PT - 10/29/2014 9:20 AM PSTFormatting of this note might be different from t he original. Therapy Progress Note by Dorcas Holguin PT at 10/29/14919 Author: Dorcas Holguin PT Service: (none) Author Type: Physical Therapist Filed: 10/29/14 1112 Date of Service: 10/29/14919 Status: Signed Nutritional Services Cook: Dorcas Holguin PT (Physical Therapist) 10/29/14919 PT Last Visit PT Received On 10/29/14 Reason for Treatment Brain injury Requires PT Follow Up Yes Follow up PT Only? No Focus for Next Treatment Formal Balance Assessment PT Eval/Reassessment Date 10/29/14 Assistance Required 2 person Parts Assembler Needed No Precautions Other Precautions helmet when [...] Barriers to Discharge Physical Deficits Impacting Functional [place];Self-care Deficit s Impacting Functional [place] Recommendation Comments Pt may be discharging to SNF today if ready. Cecilio Briones MD - 10/28/2014 3:03 PM PST . Progress Notes by Cecilio Bravo MD at 10/28/14 150 Author: Cecilio Bravo MD Service: Hospitalist Author Type: Physician Filed: 10/28/14 1509 Date of Service: 10/28/14 150 Status: Signed Nutritional Services Cook: Cecilio Bravo MD (Physician) [facility] Service: Hospitalist Progress Note Hospital Day: LOS: 17 days Post-Op Day: 11 Days Post-Op SUBJECTIVE Patient Summary: Per ICU note: The patient is a 53 y.o. male with significant past medical history of chronic alcohol abus e and multiple falls. Per ED report from [facility]: he was drinking earlier today at home and fell twice. He went to bed and then he was noted to be having what they thought was seizure activity and th ey could not wake him and called EMS. He was taken to the ED at [facility] [place] then transferred to the ED here for [...] and multiple falls who was transferred from [facility] due to a fall, seizures . [...] placement to improve s trength and mobility. industrial retrofit designer are working on finding placement which may [...] Oct 17 2014 7:38AM Referring Provider Line: [phone] ID: [id number] Ct Head Without Contrast 10/16/2014 [...] Oct 16 2014 6:08AM Referring Provider Line: [phone] E ID: [id number] PROBLEM LIST ASSESSMENT & [...] iscussion. CM routed updated medical notes to [facility] and [facility]. PT recommending SNF. CM spoke w/ Tyler at [facility] and Mary Beth at [facility], efaxed updated medical information, grace th are [...] at this time; planned for placement in [place] once patient is off sitter for 48 hrs. Otherwise patient continues to interact appropriately at this time and no impulsiveness is shown. Patient is mostly in chair or in bed and sleeping. 10/27 pt is alert today, no complications. Continue with PT. Pt without sitter. Pending plac ement still. 10/28 planning re-evaluation of patient's status for admission to [place]. Pt otherwise is not impulsive, mostly calm [...] Bravo MD 10/28/2014 Maria Teresa Dhillon MA, CCC-ADMINISTRATIVE DIRECTOR - 10/27/2014 4:14 PM PST Therapy Progress Note by MS KT Hayes-ADMINISTRATIVE DIRECTOR at 10/27/14 6334 Author: MS KT Hayes-ADMINISTRATIVE DIRECTOR Service: (none) Author Type: Speech Therapist Filed: 10/27/14 6073 Date of Service: 10/27/141613 Status: Signed Nutritional Services Cook: MS KT Hayes-ADMINISTRATIVE DIRECTOR (Speech and Language Pathologist) 10/27/14 1600 Swallowing Assessment Eval Swallowing Treatment Yes Consistencies Consistencies Assessed Yes Thin Presentation Cup;Self Fed Oral Phase Thin WFL Pharyngeal Phase Cough - immediate;Delayed swallow initiated;Decreased laryngeal elevation upon palpation Wolf Trap Presentation Self Fed;Cup Oral WFL Pharyngeal Phase No overt signs or symptoms of aspiration Dysphagia Mechanically Altered Presentation Spoon Oral Phase WFL Pharyngeal Phase No overt signs or symptoms of aspiration;Cough - Delayed (pt required cues to swallow - pt very agitated during trials) Recommendations Liquids Consistency Recommendations [place] thick Diet Consistency Recommendation Pureed Recommendations Dysphagia [...] Goals Pt will have safe/efficient oral intake [place] thick liquids;Puree diet;With feeding sherley t;Goal progressing Pt will tolerate diet upgrade trials With 1:1 supervision;Goal progressing onver alem Transaction, Provider Unknown - 10/27/2014 2:10 PM PST Therapy Progress Note by Katherin Garay PT at 10/27/14 5203 Author: Katherin Garay PT Service: (none) Author Type: Physical Therapist Filed: 10/27/14 2864 Date of Service: 10/27/141409 Status: Signed Nutritional Services Cook: Katherin Bohnet, PT (Physical Therapist) 10/27/14 1410 PT Last Visit PT Received On 10/27/14 Reason for Treatment Brain injury (TBI R SDH) Requires PT Follow Up Yes Follow up PT Only? Yes Assistance Required 2 person Parts Assembler Needed No Precautions Other Precautions helmet when [...] Barriers to Discharge Physical Deficits Impacting Functional [place];Self-care Deficit s Impacting Functional [place] onver alem Willard, Provider Unknown - 10/27/2014 11:15 AM PST Therapy Progress Note by CADEN Mcgowan at 10/27/14 1115 Author: CADEN Mcgowan Service: (none) Author Type: Occupational Therapist Filed: 10/27/14 1230 Date of Service: 10/27/14 1115 Status: Signed Nutritional Services Cook: CADEN Mcgowan (Occupational Therapist) 10/27/14 1115 OT Last Visit OT Received On 10/27/14 Reason for Treatment Brain injury Requires OT Follow Up Yes Assistance Required 2 person Parts Assembler Needed No Family/Caregiver Present No Precautions Other [...] Acute OT;SNF Equipment Recommended Shower chair with back;Attending Anesthesiologist;HHSH;Bedside commode Education Completed: Education Topic: ADLs, fine [...] commode, shower chair, hand held shower head, 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 male with significant past medical history of chronic alcohol abus e and multiple falls. Per ED report from [facility]: he was drinking earlier today at home and fell twice. He went to bed and then he was noted to be having what they thought was seizure activity and th ey could not wake him and called EMS. He was taken to the ED at [facility] in [place] nd then transferred to the ED [...] and multiple falls who was transferred from [facility] due to a fall, seizures . [...] placement to improve s trength and mobility. industrial retrofit designer are working on finding placement which may take few days, however if accepted then can be discharged for rehabilitation Events Overnight: 10/22 pt still somewhat confused, thought he was in [place]. He knew that he fell, but didn [...] Oct 17 2014 7:38AM Referring Provider Line: [phone] ID: 004 Ct Head Without Contrast 10/16/2014 [...] Oct 16 2014 6:08AM Referring Provider Line: [phone] E ID: [id number] PROBLEM LIST ASSESSMENT & [...] iscussion. CM routed updated medical notes to [facility] and [facility]. PT recommending SNF. CM spoke w/ Tyler at [facility] and Mary Beth at [facility], efaxed updated medical information, grace th are [...] this time for planned for placement in [place] once patient is off sitter for 48 [...] Date of Service: 10/26/14 1631 Status: Signed Nutritional Services Cook: CADEN Narvaez (Occupational Therapist) 10/26/14 1600 Time Calculation Start Time 1600 Stop Time 1615 Time Calculation (min) 15 min $ ADLs/IADLs ADLS/IADLS Charges Home management training $Home Management Training 8-22 mins Therapy Time 15 Minutes 10/26/14 1600 OT Last Visit OT Received On 10/26/14 Reason for Treatment Brain injury Requires OT Follow Up Yes Assistance Required 2 person Parts Assembler Needed No Family/Caregiver Present No Precautions Other [...] his mouth. about 4 rounds of gentle [id number] awakened. Activity Tolerance Activity Tolerance Patient limited [...] elevated Grooming Final Score 5 Comprehension (in [place] ira language) 3 - Patient requires moderate assist to comprehend DUE TO? needing parts of sentences repea stephenie 2 - Patient requires maximal assist to comprehend DUE TO? only understanding simple express ions Comprehension Final Score 2 - Maximal assistance Expression (in [place] ir[place] language) 2 - Patient requires maximal assist [...] Date of Service: 10/26/14 1554 Status: Signed Nutritional Services Cook: CADEN Narvaez (Occupational Therapist) Chart opened in error onversion Transa ction, Provider Unknown - 10/26/2014 1:34 PM PST Progress Notes by Anna Venegas RD at 10/26/14 1334 Author: Anna Venegas RD Service: (none) Author Type: Registered Dietitian Filed: 10/26/14 1347 Date of Service: 10/26/14 1334 Status: Signed Nutritional Services Cook: Anna Venegas RD (Doyle Dietitian) Nutrition Follow-Up [...] on current weight of 85 kg Kcal: 1789-4231 (25-30 kcal/kg) Protein: 102-128 gr (1.2-1.5 gr/kg) [...] (none) Author Type: Physical Therapist Filed: 10/26/14 8291 Date of Service: 10/26/14 1313 Status: Signed Nutritional Services Cook: Thalia Simmons PT (Physical Therapist) 10/26/14 1313 [...] 10/26/148 Date of Service: 10/26/141017 Status: Signed Nutritional Services Cook: ИВАН Elaine (Massage Therapist) 10/26/14 1018 Massage Therapy Interventions Locations Back;Neck;Shoulder Massage Therapy Technique Effleurage;Petrissage;Malaysian massage Response to treatment Decreased muscle tension;Decreased pain tegNatalee carmichael MS CCC-ADMINISTRATIVE DIRECTOR - 10/26/2014 10:14 AM PST Therapy Progress Note by Natalee Plata MS CCC-ADMINISTRATIVE DIRECTOR at 10/26/14 1014 Author: Natalee Plata MS CCC-ADMINISTRATIVE DIRECTOR Service: (none) Author Type: Speech and Language Pathologist Filed: 10/26/14 1014 Date of Service: 10/26/144 Status: Signed Nutritional Services Cook: Natalee Plata MS CCC-ADMINISTRATIVE DIRECTOR (Speech and Language Pathologist) 10/26/14 0945 Swallowing Assessment Eval Swallowing Treatment Yes Initial Swallow Assessment Behavior/Cognition Cooperative;Neuro impairment Patient Positioning Upright in chair Consistencies Consistencies Assessed Yes Thin Presentation Cup;Self Fed Oral Phase Thin WFL Pharyngeal Phase Cough - immediate [place] Presentation Cup;Self Fed Oral WFL Pharyngeal Phase No overt signs or symptoms of aspiration Dysphagia Mechanically Altered Presentation Spoon Oral Phase WFL Pharyngeal Phase No overt signs or symptoms of aspiration Dysphagia Advanced Presentation Spoon Oral Phase WFL Pharyngeal Phase No overt signs or symptoms of aspiration Recommendations Liquids Consistency Recommendations [place] thick Diet Consistency Recommendation Pureed Recommendations Dysphagia [...] treatment;Continue with current plan Natalee Plata MS CCC-ADMINISTRATIVE DIRECTOR ljaylon, Me shari Baumann PT - 10/26/2014 8:58 AM PSTFormatting of this note might be different from the madelin booker. Therapy Progress Note by Thalia Simmons PT at 10/26/14 0858 Author: Thalia Simmons PT Service: (none) Author Type: Physical Therapist Filed: 10/26/14 0937 Date of Service: 10/26/14857 Status: Signed Nutritional Services Cook: Thalia Simmons PT (Physical Therapist) 10/26/14 0858 PT Last Visit PT Received On 10/26/14 Reason for Treatment Brain injury (SDH. bone flap removed) Requires PT Follow Up Yes Follow up PT Only? Yes Assistance Required 2 person Parts Assembler Needed No Precautions Other Precautions helmet on [...] Barriers to Discharge Physical Deficits Impacting Functional [place];Self-care Deficit s Impacting Functional [place];Neurological Impairment (see comment);Pain VS: 117/82 87 98% ra Cecilio Briones MD - 10/26/2014 8:09 AM PST Progress Notes by Cecilio Bravo MD at 10/26/14808 Author: Cecilio Bravo MD Service: Hospitalist Author Type: Physician Filed: 10/26/14 0309 Date of Service: 10/26/14808 Status: Signed Nutritional Services Cook: Cecilio Bravo MD (Physician) [facility] Service: Hospitalist Progress Note Hospital Day: LOS: 15 days Post-Op Day: 11 Days Post-Op SUBJECTIVE Patient Summary: Per ICU note: The patient is a 53 y.o. male with significant past medical history of chronic alcohol abus e and multiple falls. Per ED report from [facility]: he was drinking earlier today at home and fell twice. He went to bed and then he was noted to be having what they thought was seizure activity and th ey could not wake him and called EMS. He was taken to the ED at [facility] in [place] a nd then transferred to [...] and multiple falls who was transferred from [facility] due to a fall, seizures . [...] placement to improve s trength and mobility. industrial retrofit designer are working on finding placement which may take few days, however if accepted then can be discharged for rehabilitation Events Overnight: 2/ pt still somewhat confused, thought he was in [place]. He knew that he fell, but didn [...] Oct 17 2014 7:38AM Referring Provider Line: [phone] ID: [id number] Ct Head Without Contrast 10/16/2014 [...] Oct 16 2014 6:08AM Referring Provider Line: [phone] E ID: [id number] PROBLEM LIST ASSESSMENT & [...] iscussion. CM routed updated medical notes to [facility] and [facility]. PT recommending SNF. CM spoke w/ Tyler at [facility] and Mary Beth at [facility], efaxed updated medical information, grace th are [...] this time for planned for placement in [place] once patient is off sitter for 48 [...] Notes by Cecilio Bravo MD at 10/25/14 0261 Author: Cecilio Bravo MD Service: Hospitalist Author Type: Physician Filed: 10/25/14 5332 Date of Service: 10/25/141623 Status: Signed Nutritional Services Cook: Cecilio Bravo MD (Physician) [facility] Service: Hospitalist Progress Note Hospital Day: LOS: 14 days Post-Op Day: 11 Days Post-Op SUBJECTIVE Patient Summary: Per ICU note: The patient is a 53 y.o. male with significant past medical history of chronic alcohol abus e and multiple falls. Per ED report from [facility]: he was drinking earlier today at home and fell twice. He went to bed and then he was noted to be having what they thought was seizure activity and th ey could not wake him and called EMS. He was taken to the ED at [facility] in [place] nd then transferred to the ED [...] and multiple falls who was transferred from [facility] due to a fall, seizures . [...] placement to improve s trength and mobility. industrial retrofit designer are working on finding placement which may [...] Oct 17 2014 7:38AM Referring Provider Line: [phone] ID: [id number] Ct Head Without Contrast 10/16/2014 [...] Oct 16 2014 6:08AM Referring Provider Line: [phone] E ID: [id number] PROBLEM LIST ASSESSMENT & [...] iscussion. CM routed updated medical notes to [facility] and [facility]. PT recommending SNF. CM spoke w/ Tyler at [facility] and Mary Beth at [facility], efaxed updated medical information, grace th are [...] Cecilio Bravo MD 10/25/2014 Lin Richardson MS CCC-ADMINISTRATIVE DIRECTOR - 10/25/2014 3:31 PM PST Therapy Progress Note by Emilie Sutherland MS CCC-ADMINISTRATIVE DIRECTOR at 10/25/14 1531 Author: Emilie Sutherland MS CCC-ADMINISTRATIVE DIRECTOR Service: (none) Author Type: Speech Therapist Filed: 10/25/14 1532 Date of Service: 10/25/14 1531 Status: Signed Nutritional Services Cook: Emilie Sutherland MS CCC-ADMINISTRATIVE DIRECTOR (Speech Therapist) 10/25/14 1531 ADMINISTRATIVE DIRECTOR Last Visit ADMINISTRATIVE DIRECTOR Received On 10/25/14 Requires ADMINISTRATIVE DIRECTOR Follow Up Unavailable (pt asleep and has [...] Date of Service: 10/25/14 1145 Status: Signed Nutritional Services Cook: Trina Maldonado PT (Physical Therapist) 10/25/14 1145 PT Last Visit PT Received On 10/25/14 Reason for Treatment Brain injury (right SDH) Requires PT Follow Up Yes Follow up PT Only? Yes Assistance Required 2 person Parts Assembler Needed No Precautions Other Precautions helmet for [...] Author: TABITHA Armstrong Service: (none) Author Type: Packing Shed Supervisor Filed: 10/25/14 1003 Date of Service: 10/25/14 1002 Status: Signed Nutritional Services Cook: TABITHA Armstrong (Packing Shed Supervisor) CM received a phone call from Loan at [facility] who agreed to accept pt once he dem onstrates he does not require a sitter for 48hrs. Jem NOEL onver alem Transaction, Provider Unknown - 10/24/2014 2:43 PM PST Case Management by TABITHA Armstrong at 10/24/14 1443 Author: TABITHA Armstrong Service: (none) Author Type: Packing Shed Supervisor Filed: 10/24/14 1245 Date of Service: 10/24/14 6333 Status: Signed Nutritional Services Cook: TABITHA Armstrong (Packing Shed Supervisor) CM phoned both [facility] to see if they can accept pt. [facility] declined to accept pt. [facility] is still considering him. CM faxed a referral to [facility] as well. Jem NOEL Camille Montaño MD - 10/24/2014 2:00 PM PSTFormatting of this note might be different from marylou cook original. Progress Notes by Cecilio Bravo MD at 10/24/14 1400 Author: Cecilio Bravo MD Service: Hospitalist Author Type: Physician Filed: 10/24/14 1401 Date of Service: 10/24/14 1400 Status: Signed Nutritional Services Cook: Cecilio Bravo MD (Physician) [facility] Service: Hospitalist Progress Note Hospital Day: LOS: 13 days Post-Op Day: 11 Days Post-Op SUBJECTIVE Patient Summary: Per ICU note: The patient is a 53 y.o. male with significant past medical history of chronic alcohol abus e and multiple falls. Per ED report from [facility]: he was drinking earlier today at home and fell twice. He went to bed and then he was noted to be having what they thought was seizure activity and th robbie could not wake him and called EMS. He was taken to the ED at [facility] in [place] a nd then transferred to [...] and multiple falls who was transferred from [facility] due to a fall, seizures . [...] placement to improve s trength and mobility. industrial retrofit designer are working on finding placement which may take few days, however if accepted then can be discharged for rehabilitation Events Overnight: 2/2 pt still somewhat confused, thought he was in [place]. He knew that he fell, but didn [...] Oct 17 2014 7:38AM Referring Provider Line: [phone] ID: [id number] Ct Head Without Contrast 10/16/2014 [...] Oct 16 2014 6:08AM Referring Provider Line: [phone] E ID: [id number] PROBLEM LIST ASSESSMENT & [...] iscussion. CM routed updated medical notes to [facility] and [facility]. PT recommending SNF. CM spoke w/ Tyler at [facility] and Mary Beth at [facility], efaxed updated medical information, grace th are [...] MD 10/24/2014 ovarbritni ospina, Jessica Christy MA, CCC-ADMINISTRATIVE DIRECTOR - 10/24/2014 11:48 AM PST Therapy Progress Note by Jessica Headley MA CCC-ADMINISTRATIVE DIRECTOR at 10/24/14 1148 Author: Jessica Headley MA CCC-ADMINISTRATIVE DIRECTOR Service: (none) Author Type: Speech and Language Pathologist Filed: 10/24/14 1148 Date of Service: 10/24/14 1148 Status: Signed Nutritional Services Cook: Jessica Headley MA CCC-ADMINISTRATIVE DIRECTOR (Speech and Language Pathologist) 10/24/14 1123 Swallowing Assessment Eval Swallowing Treatment Yes Initial Swallow Assessment Behavior/Cognition Cooperative;Alert Consistencies Consistencies Assessed Yes Thin Presentation Cup;Spoon Oral Phase Thin WFL Pharyngeal Phase Cough - immediate (immediate coughing with thins via cup) [place] Presentation Cup;Self Fed Oral WFL Pharyngeal Phase No overt signs or symptoms of aspiration Puree Presentation Spoon Oral Phase WFL Pharyngeal No overt signs or symptoms of aspiration;Delayed Swallow Recommendations Liquids Consistency Recommendations [place] thick Diet Consistency Recommendation Pureed Recommendations Dysphagia [...] Goals Pt will have safe/efficient oral intake [place] thick liquids;Puree diet;With feeding sherley t;Goal progressing Pt will tolerate diet upgrade trials With 1:1 supervision;Goal progressing onver alem Willard, Provider Unknown - 10/24/2014 10:07 AM PST Therapy Progress Note by ИВАН Elaine at 10/24/14 1007 Author: ИВАН Elaine Service: (none) Author Type: Massage Therapist Filed: 10/24/14 1007 Date of Service: 10/24/14 1007 Status: Signed Nutritional Services Cook: ИВАН Elaine (Massage Therapist) 10/24/14 1007 Massage Therapy Interventions Locations Back;Neck;Shoulder Massage Therapy Technique Effleurage;Petrissage;Malaysian massage Response to treatment Decreased muscle tension Camille Montaño MD - 10/23/2014 4:38 PM PSTFormatting of this note might be different from th e original. Progress Notes by Cecilio Bravo MD at 10/23/14 1638 Author: Cecilio Bravo MD Service: Hospitalist Author Type: Physician Filed: 10/23/14 1641 Date of Service: 10/23/14 1638 Status: Signed Nutritional Services Cook: Cecilio Bravo MD (Physician) [facility] Service: Hospitalist Progress Note Hospital Day: LOS: 12 days Post-Op Day: 11 Days Post-Op SUBJECTIVE Patient Summary: Per ICU note: The patient is a 53 y.o. male with significant past medical history of chronic alcohol abus e and multiple falls. Per ED report from [facility]: he was drinking earlier today at home and fell twice. He went to bed and then he was noted to be having what they thought was seizure activity and th ey could not wake him and called EMS. He was taken to the ED at [facility] in [place] a nd then transferred to the ED [...] and multiple falls who was transferred from [facility] due to a fall, seizures . [...] placement to improve s trength and mobility. industrial retrofit designer are working on finding placement which may take few days, however if accepted then can be discharged for rehabilitation Events Overnight: 2/2 pt still somewhat confused, thought he was in [place]. He knew that he fell, but didn [...] Oct 17 2014 7:38AM Referring Provider Line: [phone] ID: [id number] Ct Head Without Contrast 10/16/2014 [...] Oct 16 2014 6:08AM Referring Provider Line: [phone] E ID: [id number] PROBLEM LIST ASSESSMENT & [...] iscussion. CM routed updated medical notes to [facility] and [facility]. PT recommending SNF. CM spoke w/ Tyler at [facility] and Mary Beth at [facility], efaxed updated medical information, grace th are [...] Management by Yeimi Ruiz RN at 10/23/14 1073 Author: Yeimi Ruiz RN Service: (none) Author Type: Registered Nurse Filed: 10/23/14 1640 Date of Service: 10/23/14 2541 Status: Signed Nutritional Services Cook: Yeimi Ruiz RN (Registered Nurse) CM received a call from Sherry who is the Community Health Nurse from the [facility]. ([phone] and fax [phone]) She states that she can assist with [...] (none) Author Type: Physical Therapist Filed: 10/23/14 4413 Date of Service: 10/23/14 1140 Status: Signed Nutritional Services Cook: Amara Duran PT (Physical Therapist) 10/23/14 1140 PT Last Visit PT Received On 10/23/14 Reason for Treatment Brain injury (right SDH) Requires PT Follow Up Yes Follow up PT Only? Yes Focus for Next Treatment Formal Balance Assessment;Bed Mobility Technique;Transfer Techniqu e Assistance Required 2 person Parts Assembler Needed No Precautions Other Precautions kye for [...] Barriers to Discharge Physical Deficits Impacting Functional [place] Recommendation Comments Pt. continues to require maximal assist for all mobility needs. Sebastian l need further skilled PT to address deficits prior to return home. onver Larissa Carey Unknown - 10/23/2014 11:29 AM PST Therapy Progress Note by ИВАН Poole at 10/23/14 1129 Author: ИВАН Poole Service: (none) Author Type: Massage Therapist Filed: 10/23/14 1130 Date of Service: 10/23/14 1129 Status: Signed Nutritional Services Cook: ИВАН Poole (Massage Therapist) 10/23/14 1100 Massage Therapy Interventions Locations Back;Neck;Shoulder Massage Therapy Technique Effleurage;Petrissage;Malaysian massage;Trigger point Response to treatment Decreased pain;Decreased [...] 10/22/141825 Date of Service: 10/22/141810 Status: Signed Nutritional Services Cook: Cecilio Bravo MD (Physician) [facility] Service: Hospitalist Progress Note Hospital Day: LOS: 11 days Post-Op Day: 11 Days Post-Op SUBJECTIVE Patient Summary: Per ICU note: The patient is a 53 y.o. male with significant past medical history of chronic alcohol abus e and multiple falls. Per ED report from [facility]: he was drinking earlier today at home and fell twice. He went to bed and then he was noted to be having what they thought was seizure activity and th ey could not wake him and called EMS. He was taken to the ED at [facility] in [place] a nd then transferred to the ED [...] and multiple falls who was transferred from [facility] due to a fall, seizures . [...] placement to improve s trength and mobility. industrial retrofit designer are working on finding placement which may take few days, however if accepted then can be discharged for rehabilitation Events Overnight: 2/ pt still somewhat confused, thought he was in [place]. He knew that he fell, but didn [...] Oct 17 2014 7:38AM Referring Provider Line: [phone] ID: 004 Ct Head Without Contrast 10/16/2014 [...] Oct 16 2014 6:08AM Referring Provider Line: [phone] E ID: [id number] PROBLEM LIST ASSESSMENT & [...] iscussion. CM routed updated medical notes to [facility] and [facility]. PT recommending SNF. CM spoke w/ Tyler at [facility] and Mary Beth at [facility], efaxed updated medical information, grace th are [...] Cecilio Bravo MD 10/22/2014 Lin Richardson, MS CCC-ADMINISTRATIVE DIRECTOR - 10/22/2014 3:22 PM PST Therapy Progress Note by Emilie Sutherland MS CCC-ADMINISTRATIVE DIRECTOR at 10/22/14 1522 Author: Emilie Sutherland MS CCC-ADMINISTRATIVE DIRECTOR Service: (none) Author Type: Speech Therapist Filed: 10/22/14 1522 Date of Service: 10/22/14 1522 Status: Signed Nutritional Services Cook: Emilie Sutherland MS CCC-ADMINISTRATIVE DIRECTOR (Speech Therapist) 10/22/14 4320 ADMINISTRATIVE DIRECTOR Last Visit ADMINISTRATIVE DIRECTOR Received On 10/22/14 Requires ADMINISTRATIVE DIRECTOR Follow Up Unavailable (attempted pt just given pain meds, very tired) Attempted to do trials, however pt every difficulty to keep wake. onversion T ransaction, Provider Unknown - 10/22/2014 3:15 PM PSTFormatting of this note might be diffe rent from the original. Case Management by TABITHA Dejesus at 10/22/14 1515 Author: TABITHA Dejesus Service: (none) Author Type: Leach Tank Tender Filed: 10/22/14 1527 Date of Service: 10/22/14 1515 Status: Addendum Nutritional Services Cook: TABITHA Dejesus (Leach Tank Tender) Related Notes: Original Note by TABITHA Dejesus (Leach Tank Tender) filed at 10/22/14 1518 CM attempted to meet pt for d/c planning. CM could not arouse pt for discussion. CM route d updated medical notes to [facility] and [facility]. PT recommending SNF. CM spoke w/ Tyler at [facility] and Mary Beth at [facility], efaxed updated medical information, both are looking [...] Date of Service: 10/22/14 1435 Status: Addendum Nutritional Services Cook: Jennifer Alberts RD (Registered Dietitian) Related Notes: [...] time; Cr .65 (L). Nutrition-focused physical findings: ADMINISTRATIVE DIRECTOR following for dysphagia. Diet order/current intake: Pureed, [...] offered daily. Recommendations: 1. Continue diet per ADMINISTRATIVE DIRECTOR. 2. Magic cups with meal trays. 3. Monitor pt's weight. 4. Offer high calorie foods on meal trays. Monitoring: Will follow up in 4 days per nutrition protocol. Jennifer Alberts MS, international editorial producer, 10/22/14. onver alem Transaction, Provider Unknown - 10/22/2014 9:56 AM PST Therapy Progress Note by ИВАН Elaine at 10/22/14955 Author: ИВАН Elaine Service: (none) Author Type: Massage Therapist Filed: 10/22/1456 Date of Service: 10/22/14955 Status: Signed Nutritional Services Cook: Pelon M Bryner, LMP (Massage Therapist) 10/22/14 [...] 1104 Date of Service: 10/22/14899 Status: Signed Nutritional Services Cook: Dorcas Holguin PT (Physical Therapist) 10/22/14899 PT Last Visit PT Received On 10/22/14 Reason for Treatment (R SDH) Requires PT Follow Up Yes Follow up PT Only? Yes Focus for Next Treatment Formal Balance Assessment;Bed Mobility Technique;Transfer Techniqu e PT Eval/Reassessment Date 10/22/14 Assistance Required 2 person Parts Assembler Needed No Precautions Other Precautions helmet when [...] oriented to self also remembers RN and SEWING MACHINE OPERATOR;s name. Bed Mobility Rolling Moderate assist Supine [...] advance LLE however leg neal) Assistive Device (BEATER ROOM HELPER on 2 therapists) Static Sitting Balance Static [...] 1411 Date of Service: 10/21/14845 Status: Addendum Nutritional Services Cook: Travon Mitchell MD (Physician) Related Notes: Original Note by Travon Mitchell MD (Physician) filed at 10/21/14 14 07 [facility] Service: Hospitalist Progress Note Tony Edouardcharlene 53 y.o. [id number] 438/[id number] male PER PT NONE Hospital Day: LOS: 10 days SUBJECTIVE Patient Summary: Patient is a 53 year old male with past medical history of Chronic Alcohol Abuse, Dependenc e and multiple falls who was transferred from [facility] due to a fall, seizures . [...] placement to improve s trength and mobility. industrial retrofit designer are working on finding placement which may [...] acute distr ess. HEENT: Head: S/P Craniotomy. [place] at midline and temporo parietoccipital area of [...] and followed by Dr. Nj from [facility]. He is making slow progress [...] Discharge plans to a SNF for rehabilitation. customer service manager is working on placement which cou ld be challenging due to [place] Medicaid. His insurance may contribute in the delayed disch arge due to placement and or acceptance at a facility. Spent more than 30 minutes reviewing patient's labs, diagnostic tests, examination of patie nt, discussing plan of care with staff, also helped in coordination of care and answered sta ff's questions. Travon Mitchell MD 10/21/2014 alena, CADEN Brower - 10/20/2014 3:33 PM PST . Therapy Progress Note by CADEN Narvaez at 10/20/14 1533 Author: CADEN Narvaez Service: (none) Author Type: Occupational Therapist Filed: 10/20/14 1531 Date of Service: 10/20/14 1533 Status: Signed Nutritional Services Cook: CADEN Narvaez (Occupational Therapist) 10/20/14 1500 OT [...] 1506 Date of Service: 10/20/14922 Status: Signed Nutritional Services Cook: Travon Mitchell MD (Physician) [facility] Service: Hospitalist Progress Note Tony Fortune 53 y.o. [id number] 438/[id number] male PER PT NONE Hospital Day: LOS: 9 days SUBJECTIVE Patient Summary: Patient is a 53 year old male with past medical history of Chronic Alcohol Abuse, Dependenc e and multiple falls who was transferred from [facility] due to a fall, seizures . [...] in acute distress. HEENT: Head: S/P Craniotomy. [place] at midline and temporo parietoccipital area of [...] and now followed by Dr. Nj from [facility] services. He is [...] Discharge plans to a SNF for rehab. customer service manager is working on placement which could be [employer]ley [employer] due to [place] Medicaid insurance and may delay the discharge till accepted at a [facility]. Spent more than 30 minutes reviewing patient's [...] (none) Author Type: Occupational Therapist Filed: 10/19/14 6600 Date of Service: 10/19/14 1501 Status: Signed Nutritional Services Cook: CADEN Mcgowan (Occupational Therapist) 10/19/14 1501 Precautions Other Precautions helmet on when OOB Home Environment Bathroom Shower/Tub Tub/shower unit;Shower unit with threshold (uses walk in shower) Bathroom Toilet Standard Bathroom Equipment Grab bars in shower/bath Additional Comments Refer to PT note for PLOF Prior Function Level of [place] Independent with functional mobility;Independent with ADLs;Independe nt with IADLs Lives With Sibling(s) (stated living with brother) ADL Assistance Independent Home ADL's Independent ADL Eating Assistance Total (requiring 1:1 for feeding, per SEWING MACHINE OPERATOR) Grooming Assistance Dependent (per SEWING MACHINE OPERATOR) Grooming impacted by Cognitive deficits;Ability to follow [...] during ADL;Decreased endurance;Decreased fine motor control;Decreased self-care groe s;Decreased high-level ADLs Prognosis Good Goal Formulation [...] for ADLs/IADLs) Equipment Recommended Shower chair with back;Attending Anesthesiologist;HHSH;Grab bars withing home;Bedside co mmode Education Completed: [...] JAVIER Mcgowan, CSRS 10/19/2014 ovarJessica reis MA, CCC-ADMINISTRATIVE DIRECTOR - 10/19/2014 2:12 PM PSTFormatting of this note might be differ ent from the original. Therapy Progress Note by Jessica Headely MA CCC-ADMINISTRATIVE DIRECTOR at 10/19/14 1412 Author: Jessica Headley MA CCC-ADMINISTRATIVE DIRECTOR Service: (none) Author Type: Speech and Language Pathologist Filed: 10/19/14 1413 Date of Service: 10/19/141411 Status: Signed Nutritional Services Cook: Jessica Headley MA CCC-ADMINISTRATIVE DIRECTOR (Speech and Language Pathologist) 10/19/14 3316 Swallowing Assessment Eval Swallowing Treatment Yes Initial Swallow Assessment Behavior/Cognition Lethargic Consistencies Consistencies Assessed Yes Thin Presentation Spoon;Cup Oral Phase Thin Anterior Spillage Left Pharyngeal Phase Delayed swallow initiated;Spontaneous double swallow;Cough - delayed Puree Presentation Spoon Oral Phase Increased oral holding time Pharyngeal Delayed Swallow;No overt signs or symptoms of aspiration Recommendations Liquids Consistency Recommendations Wolf Trap thick Diet Consistency Recommendation Pureed (1-2 snacks [...] Notes by Debora Ott PA-C at 10/19/14 5458 Author: Debora Ott PA-C Service: Neurosurgery Author Type: Physician Glue Spreader - Ce rtified Filed: 10/19/14 1478 Date of Service: 10/19/14 6480 Status: Signed Nutritional Services Cook: Debora Ott PA-C (Physician Glue Spreader - Certified) [facility] Service: Neurosurgery Progress Note Hospital Day: LOS: 8 days Post-Op Day: 8 Days Post-Op SUBJECTIVE Patient Summary: s/p craniectomy for large right SDH Events Overnight: Complaining of pain. IPR denied because he lives in [place], antoinette guardado on placement in [place]. Helmet arrived. Scheduled Medications docusate sodium 100 [...] Author: TABITHA Armstrong Service: (none) Author Type: Packing Shed Supervisor Filed: 10/19/14 1418 Date of Service: 10/19/14 1346 Status: Addendum Nutritional Services Cook: TABITHA Armstrong (Packing Shed Supervisor) Related Notes: Original Note by TABITHA Armstrong (Packing Shed Supervisor) filed at 10/19/14 1347 CM faxed a referral to [facility] in [place] and updated info to [facility] in [place]. CM faxed updated info to the [facility] [place]. Jem NOEL Travon Lara MD - 10/19/2014 1:40 PM PSTFormatting of this note might be different from t he original. Progress Notes by Travon Mitchell MD at 10/19/14 1340 Author: Travon Mitchell MD Service: Hospitalist Author Type: Physician Filed: 10/19/148 Date of Service: 10/19/141339 Status: Signed Nutritional Services Cook: Travon Mitchell MD (Physician) [facility] Service: Hospitalist Progress Note Tony Fortune 53 y.o. [id number] 438/[id number] male PER PT NONE Hospital Day: LOS: 8 days SUBJECTIVE Patient Summary: Patient is a 53 year old male with past medical history of Chronic Alcohol Abuse, Dependenc e and multiple falls who was transferred from [facility] due to a fall, seizures . [...] in acute distress. HEENT: Head: S/P Craniotomy. [place] at midline and temporo parietoccipital area of [...] and now followed by Dr. Nj from [facility] rosurgery services. He is [...] when stable to a SNF for rehab. customer service manager is working on placement which could [...] Note by Thalia Simmons PT at 10/19/14 2683 Author: Thalia Simmons PT Service: (none) Author Type: Physical Therapist Filed: 10/19/14 5703 Date of Service: 10/19/14 0251 Status: Signed Nutritional Services Cook: Thalia Simmons PT (Physical Therapist) 10/19/14 115 PT Last Visit PT Received On 10/19/14 [...] Author: Crissy Maldonado Service: (none) Author Type: Pulmonary Physician Filed: 10/19/147 Date of Service: 10/19/141055 Status: Signed Nutritional Services Cook: Crissy Maldonado I attempted to meet with the patient to discuss who his PCP is, however he was in patient c are. Crissy Maldonado-GPS Lip And Gate Builder Wing Lewis Perry MD - 10/19/2014 9:01 AM PSTFormatting of this note might be different from the origi nal. Progress Notes by Wing Lewis Argueta MD at 10/19/14900 Author: Wing Lewis Argueta MD Service: (none) Author Type: Physician Filed: 10/19/14901 Date of Service: 10/19/14900 Status: Signed Nutritional Services Cook: Wing Lewis Argueta MD (Physician) Patient seen [...] Notes by Rosa Lassiter RN at 10/19/14 5800 Author: Rosa Lassiter RN Service: (none) Author Type: Registered Nurse Filed: 10/19/148 Date of Service: 10/19/14445 Status: Signed Nutritional Services Cook: Rosa Lassiter RN (Registered Nurse) Patient transported [...] Ott PA-C Service: Neurosurgery Author Type: Physician Glue Spreader - Ce rtified Filed: 10/18/141434 Date of Service: 10/18/141431 Status: Signed Nutritional Services Cook: Debora Ott PA-C (Physician Glue Spreader - Certified) [facility] Service: Neurosurgery Progress Note Hospital Day: [...] (none) Author Type: Registered Dietitian Filed: 10/18/14 7459 Date of Service: 10/18/14 115 Status: Signed Nutritional Services Cook: Maye Saleem RD, BRIAN (Registered Dietitian) Nutrition Follow-Up High-risk follow-up. Assessment: Has been very lethargic. Continues to have right-sided hemiparesis. Nutritionally pertinent labs: Electrolytes, BUN, and Cr are WNL. BG has been variable in th e 100s, no insulin ordered at this time. Nutrition-focused physical findings: Skin is intact. ADMINISTRATIVE DIRECTOR continues to follow due to dysphag ia. Diet order/current intake: Puree snacks, 1-2 items per meal tray TID plus nectar thick liqu ids by spoon only. Per RN, pt had Chinese toast and yogurt this morning and finished 95%. On IV fluids of NS at 30 mL/hr. Continues to receive folic acid and thiamine supplementatio n. Nutrition Diagnosis: Increased kcal/protein requirements related to catabolic illness and healing as evidenced b y TBI. Intervention: Continue diet per ADMINISTRATIVE DIRECTOR recommendations. 1:1 feeds with all meals. Magic Cups to be sent with meal trays. Will monitor wt trend and f/u to provide further nutrition recs based on clinical course. Goal: PO intake will be adequate to meet pt's estimated nutritional requirements. Recommendations: 1) Continue diet per ADMINISTRATIVE DIRECTOR. 2) Magic Cups with meal trays. Monitoring: Will follow up in 4 days or as indicated. Maye Saleem RD, CD, CNSC 10/18/2014 onver alem Transaction, Provider Unknown - 10/18/2014 11:07 AM PST Therapy Progress Note by Flaquito Platt PT at 10/18/14 1107 Author: Flaquito Platt PT Service: (none) Author Type: Physical Therapist Filed: 10/18/14 5171 Date of Service: 10/18/141106 Status: Signed Nutritional Services Cook: Flaquito Platt PT (Physical Therapist) 10/18/14 1107 [...] AM PST Therapy Progress Note by DAYANARA Ross-ADMINISTRATIVE DIRECTOR at 10/18/14912 Author: DAYANARA Ross-ADMINISTRATIVE DIRECTOR Service: (none) Author Type: Speech and Language Patholo gist Filed: 10/18/14912 Date of Service: 10/18/14912 Status: Signed Nutritional Services Cook: DAYANARA Ross-ADMINISTRATIVE DIRECTOR (Speech and Language Pathologist) 10/18/14844 Swallowing Assessment Eval Swallowing Treatment Yes Initial Swallow Assessment Respiratory Status Room air Behavior/Cognition Requires cueing;Doesn't follow directions;Lethargic Dentition Adequate Vision Impaired for self-feeding Patient Positioning Upright in bed Volitional Cough Strong Consistencies Consistencies Assessed Yes Ice Chips Presentation Spoon Oral Phase Increased holding time Pharyngeal Phase No overt signs or symptoms of aspirations;Delayed swallow initiation Wolf Trap Presentation Cup Oral WFL;Increased Anterior to Posterior Transit Pharyngeal Phase Delayed swallow initiated;No overt signs or symptoms of aspiration;Decreas ed laryngeal elevation upon palpation Dysphagia Mechanically Altered Presentation Spoon Oral Phase Prolonged mastication;Increased holding time Pharyngeal Phase Cough - Delayed (cueing needed to swallow) Recommendations Liquids Consistency Recommendations Wolf Trap thick Diet Consistency Recommendation Pureed;Other (comment) (1-2 [...] monitoring;Patient/Family education;Assessment for upgr khadijah Dysphagia Goals Assessment Analyst Goals Safe/efficient oral intake Pt will have safe/efficient oral intake Wolf Trap thick liquids Pt will advanced diet in 3 days;Goal progressing Short Term Goals Tolerate diet Pt will tolerate diet upgrade trials With 1:1 supervision;Goal progressing Pt will tolerate diet Puree;with 1:1 supervision;With feeding assist;Goal progressing Mere Hardy MA CFY-ADMINISTRATIVE DIRECTOR 10/18/2014 Travon Lara MD - 10/18/2014 8:36 AM PSTFormatting of this note might be different from lissett ruvalcaba. Progress Notes by Travon Mitchell MD at 10/18/14835 Author: Travon Mitchell MD Service: Hospitalist Author Type: Physician Filed: 10/18/14 1458 Date of Service: 10/18/14835 Status: Signed Nutritional Services Cook: Travon Mitchell MD (Physician) [facility] Service: Hospitalist Progress Note Tony Leeclinton 53 y.o. [id number] -1 male PER PT NONE Hospital Day: LOS: 7 days SUBJECTIVE Patient Summary: Patient is a 53 year old male with past medical history of Chronic Alcohol Abuse, Dependenc e and multiple falls who was transferred from [facility] due to a fall, seizures . [...] Author: TABITHA Sidhu Service: (none) Author Type: Packing Shed Supervisor Filed: 10/17/14 1049 Date of Service: 10/17/14 1048 Status: Signed Nutritional Services Cook: TABITHA Sidhu (Packing Shed Supervisor) Faxed updated clinical notes to [facility]. PT still not able to do a thorough eval as pt does not have his helmet yet. onver alem Transaction, Provider Unknown - 10/17/2014 10:38 AM PST Therapy Progress Note by Flaquito Platt PT at 10/17/14 1038 Author: Flaquito Platt, PT Service: (none) Author Type: Physical Therapist Filed: 10/17/14 1611 Date of Service: 10/17/14 1038 Status: Signed Nutritional Services Cook: Flaquito Platt PT (Physical Therapist) 10/17/14 1038 [...] OOB mobility assessment Maria Teresa Valdes MA, CCC-ADMINISTRATIVE DIRECTOR - 10/17/2014 8:36 AM PSTFormatting of this note might be differ ent from the original. Therapy Progress Note by Maria Teresa Lucas MS CFY-ADMINISTRATIVE DIRECTOR at 10/17/14 1996 Author: Maria Teresa Lucas MS CFY-ADMINISTRATIVE DIRECTOR Service: (none) Author Type: Speech Therapist Filed: 10/17/14835 Date of Service: 10/17/14835 Status: Signed Nutritional Services Cook: Maria Teresa Lucas MS CFY-ADMINISTRATIVE DIRECTOR (Speech and Language Pathologist) 10/17/14824 Swallowing Assessment Eval Swallowing Treatment Yes Consistencies Consistencies Assessed Yes Wolf Trap Presentation Cup Oral WFL;Increased Anterior to Posterior Transit Pharyngeal Phase No overt signs or symptoms of aspiration;Delayed swallow initiated;Decreas ed laryngeal elevation upon palpation;Spontaneous double swallow Recommendations Liquids Consistency Recommendations Wolf Trap thick;Other (comments) (by spoon) Diet Consistency Recommendation [...] was observed to be tolerating breakfast before ADMINISTRATIVE DIRECTOR walked in. Recommend cont. 1 puree snack [...] education;Assessment for upgr khadijah;Swallow strategies Dysphagia Goals Custodial Goals Safe/efficient oral intake;Advanced diet Pt will have safe/efficient oral intake Wolf Trap thick liquids;Puree diet;Goal progressing Pt will advanced diet in 3 days;Goal progressing Short Term Goals Tolerate diet upgrade trials Pt will tolerate diet upgrade trials With 1:1 supervision;Goal progressing Electronically signed by Maria Teresa Lucas MA, [facility]-ADMINISTRATIVE DIRECTOR at 10/17/2014 8:36 AM Travon Orosco MD - 10/17/2014 8:19 AM PSTFormatting of this note might be different from t regina original. Progress Notes by Travon Mitchell MD at 10/17/14818 Author: Travon Mitchell MD Service: Hospitalist Author Type: Physician Filed: 10/18/14 0019 Date of Service: 10/17/14818 Status: Signed Nutritional Services Cook: Travon Mitchell MD (Physician) [facility] Service: Hospitalist Progress Note Tony Fortune 53 y.o. [id number] - male PER PT NONE Hospital Day: LOS: 7 days SUBJECTIVE Patient Summary: Patient is a 53 year old male with past medical history of Chronic Alcohol Abuse, Dependenc e and multiple falls who was transferred from [facility] due to a fall, seizures . [...] in acute distress. HEENT: Head: S/P Craniotomy. [place] noted at the midline and temporo parietoccipital [...] Notes by Cyndy Nj MD at 10/17/14 0729 Author: Cyndy Nj MD Service: Neurosurgery Author Type: Physician Filed: 10/17/1448 Date of Service: 10/17/14744 Status: Signed Nutritional Services Cook: Cyndy Nj MD (Physician) [facility] Service: Neurosurgery Progress Note Hospital Day: [...] Date of Service: 10/16/14 1430 Status: Signed Nutritional Services Cook: CADEN Mcgowan (Occupational Therapist) 10/16/14 1430 OT Last Visit OT Received On 10/16/14 Requires OT Follow Up Unavailable (w/PT) Plan to follow up tomorrow for OT evaluation. JAVIER Mcgowan, CSRS 10/16/2014 Coral nichole, JENNIFER Arango - 10/16/2014 2:29 PM PSTFormatting of this note might be different f rom the original. Progress Notes by JENNIFER Small at 10/16/14 1429 Author: JENNIFER Small Service: Refrigeration Installer Author Type: Refrigeration Installer Filed: 10/16/14 1506 Date of Service: 10/16/14 1429 Status: Signed Nutritional Services Cook: JENNIFER Small (Nurse Practitioner) [facility] Service: Refrigeration Installer Progress Note Tony Fortune 53 y.o. Date of Admission: 10/11/2014 Treatment Team: Consulting Physician: Anthony Chong MD Admitting Provider: Harika Apodaca MD CHIEF COMPLAINT: severe TBI, large right SDH with massive midline shift, IC hypertension HISTORY OF PRESENT ILLNESS The patient is a 53 y.o. male with significant past medical history of chronic alcohol abus e and multiple falls. Per ED report from [facility]: he was drinking earlier today at home and fell twice. He went to bed and then he was noted to be having what they thought was seizure activity and th ey could not wake him and called EMS. He was taken to the ED at [facility] in [place] a nd then transferred to the ED [...] FOR BLEED; Surgeon: Anthony Chong MD; Location: [facility] IN OR; Service: Neurosurgery; Laterality: Right; Craniectomy Right 10/11/2014 Procedure: CRANIECTOMY; Surgeon: Anthony Chong MD; Location: [facility] OR; Ser vice: Neurosurgery; Laterality: Right; ALLERGIES [...] 14 2014 5:24AM Refe rring Provider Line: [phone] ID: [id number] Xr Chest 1 View 10/14/2014 [...] upper extremities. Orth otics was consultated and [facility] came and measured him for a [...] (none) Author Type: Physical Therapist Filed: 10/16/14 1397 Date of Service: 10/16/14 1415 Status: Signed Nutritional Services Cook: Ki Martinez PT (Physical Therapist) 10/16/14 1415 [...] Author: TABITHA Sidhu Service: (none) Author Type: Packing Shed Supervisor Filed: 10/16/14 1307 Date of Service: 10/16/14 1300 Status: Signed Nutritional Services Cook: TABITHA Sidhu (Packing Shed Supervisor) Received t/c from Dayami at [facility] ([phone]). She is requesting PT notes. I informed [...] her that I made a referral to [facility] as a back up plan if pt is not an IPR ca ndidate. I called Doroteo Chamorro Coord for [facility] IPR and she confirmed that [facility] Medicaid requires that pt go to an [place] facility for rehab. Await PT/OT eval. Speech Therapy is already involved. onver alem Transaction, Provider Unknown - 10/16/2014 12:20 PM PST Case Management by TABITHA Sidhu at 10/16/14 1220 Author: TABITHA Sidhu Service: (none) Author Type: Packing Shed Supervisor Filed: 10/16/14 1220 Date of Service: 10/16/14 1220 Status: Signed Nutritional Services Cook: TABITHA Sidhu (Packing Shed Supervisor) Placed t/c to [facility] and left message requesting bed availability and acceptance. Await return call. [facility] - Admissions- [phone] onver alem Transaction, Provider Unknown - 10/16/2014 12:01 PM PST Therapy Progress Note by Ki Martinez, PT at 10/16/14 1201 Author: Ki Martinez PT Service: (none) Author Type: Physical Therapist Filed: 10/16/14 1334 Date of Service: 10/16/14 1201 Status: Signed Nutritional Services Cook: Ki Martinez PT (Physical Therapist) 10/16/14 1201 PT Last Visit PT Received On 10/16/14 (still awaiting ortho helmet delivery) Requires PT Follow Up Yes;On hold Cyndy Warner MD - 10/16/2014 11:22 AM PST Progress Notes by Cyndy jN MD at 10/16/14 1122 Author: Cyndy Nj MD Service: Neurosurgery Author Type: Physician Filed: 10/16/14 1124 Date of Service: 10/16/14 1122 Status: Signed Nutritional Services Cook: Cyndy Nj MD (Physician) [facility] Service: Neurosurgery Progress Note Hospital Day: [...] nystatin, nystatin, ondansetron OR ondanset gildardo, pancrelipase (Xix-Ftcj-Ebcr) 10,000 units, petrolatum, phosphorus OR sodium phospha [...] Oct 16 2014 6:08AM Referring Provider Line: [phone] E ID: [id number] PROBLEM LIST Principal Problem: [...] Nj MD 10/16/2014 Maria Teresa Dhillon MA, CCC-ADMINISTRATIVE DIRECTOR - 10/16/2014 9:40 AM PST Therapy Progress Note by MS CLAUDIA HayesY-ADMINISTRATIVE DIRECTOR at 10/16/14939 Author: MS KT Hayes-ADMINISTRATIVE DIRECTOR Service: (none) Author Type: Speech Therapist Filed: 10/16/14940 Date of Service: 10/16/14939 Status: Signed Nutritional Services Cook: Maria Teresa Lucas MS CFY-ADMINISTRATIVE DIRECTOR (Speech and Language Pathologist) 10/16/14920 Swallowing Assessment Eval Swallowing Treatment Yes Initial Swallow Assessment Respiratory Status Room air Behavior/Cognition Cooperative;Lethargic;Requires cueing Dentition Adequate;Poor dental/oral hygiene Vision Impaired for self-feeding Patient Positioning Upright in bed Volitional Cough Weak Volitional Swallow Delayed Consistencies Consistencies Assessed Yes Wolf Trap Presentation Spoon Oral WFL;Increased Anterior to Posterior Transit Pharyngeal Phase Delayed swallow initiated;Decreased laryngeal elevation upon palpation;Cou gh - delayed;Spontaneous double swallow Puree Presentation Spoon Oral Phase Increased oral holding time Pharyngeal Delayed Swallow;Cough - Delayed;Spontaneous double swallow;Decreased Laryngeal E levation Recommendations Liquids Consistency Recommendations Wolf Trap thick;Other (comments) (No straws ) Diet Consistency [...] education;Assessment for upgr khadijah;Swallow strategies Dysphagia Goals Custodial Goals Safe/efficient oral intake;Advanced diet Pt will have safe/efficient oral intake Wolf Trap thick liquids;Puree diet;Goal progressing Pt will advanced diet in 3 days;Goal progressing Short Term Goals Tolerate diet upgrade trials Pt will tolerate diet upgrade trials With 1:1 supervision;Goal progressing onver alem Transaction, Provider Unknown - 10/16/2014 9:12 AM PST Case Management by TABITHA Sidhu at 10/16/14 0912 Author: TABITHA Sidhu Service: (none) Author Type: Packing Shed Supervisor Filed: 10/16/14 1254 Date of Service: 10/16/14911 Status: Addendum Nutritional Services Cook: TABITHA Sidhu (Packing Shed Supervisor) Related Notes: Original Note by TABITHA Sidhu (Packing Shed Supervisor) filed at 10/16/14 0914 10/16/14 0908 Discharge Planning Evaluation Admitting Diagnosis TBI Readmission No Living Arrangements Alone Support Systems Parent;Children Type of Residence Private residence (Lives on the [facility]/housing project) House type (Duplex) Independent with [...] No Prescription Plan Yes Name of Pharmacy [facility] Anticipated Disposition Facility Type Inpatient Rehabilitation;jail facility Spoke with pt's mother Teressa ([phone]) and discussed discharge planning, Pt is a 53 y.o., male admitted with TBI from 2 falls rela stephenie to etoh. Per mother, pt was driving, shopping, doing own chores prior to admit. 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 Patient's PCP is: PER PT NONE Patient's insurance:[facility] Medicaid Coverage concerns: Medication coverage/concerns: Nahun'eliseo Bedside [...] (none) Author Type: Registered Dietitian Filed: 10/15/14 8749 Date of Service: 10/15/141721 Status: Signed Nutritional Services Cook: Maye Saleem RD, CD (Registered Dietitian) Nutrition Follow-Up High-risk follow-up. Assessment: Extubated yesterday. Appetite is good. Nutritionally pertinent labs: BG has been variable in the 100s, Nutrition-focused physical findings: Skin is intact. ADMINISTRATIVE DIRECTOR is following due to dysphagia. Diet order/current [...] y and TBI. Intervention: Continue diet per ADMINISTRATIVE DIRECTOR. 1:1 feeding assistance with meals. Include Ensure pudding with meal trays when appropriate. Additional supplements to be provided once diet can be advanced. Goal: Pt will tolerate diet upgrade and intake will be adequate to meet pt's estimated nutritiona l requirements. Recommendations: 1) General diet with texture/liquid modifications as per ADMINISTRATIVE DIRECTOR recommendations. 2) Ensure pudding with meal trays once pt can have additional puree items. Monitoring: Will follow up in 3 days or as indicated. Maye Saleem RD, CD 10/15/2014 ang, Cyndy Saucedo MD - 10/15/2014 4:32 PM PST Progress Notes by Cyndy Nj MD at 10/15/14 1632 Author: Cyndy Nj MD Service: Neurosurgery Author Type: Physician Filed: 10/15/14 1638 Date of Service: 10/15/141631 Status: Signed Nutritional Services Cook: Cyndy Nj MD (Physician) [facility] Service: Neurosurgery Progress Note Hospital Day: [...] nystatin, nystatin, ondansetron OR ondanset gildardo, pancrelipase (Dwn-Nlhn-Niep) 10,000 units, petrolatum, phosphorus OR sodium phospha [...] 10/15/141932 Date of Service: 10/15/141609 Status: Signed Nutritional Services Cook: Ki Martinez PT (Physical Therapist) 10/15/14 161 [...] p with bilateral hands, but had minimal investment sales assistant bilaterally. Pt was able to reach anteriorly [...] Progress Notes by JENNIFER Small at 10/15/14 3846 Author: JENNIFER Small Service: Refrigeration Installer Author Type: Refrigeration Installer Filed: 10/15/14 1205 Date of Service: 10/15/14 7686 Status: Signed Nutritional Services Cook: JENNIFRE Small (Nurse Practitioner) [facility] Service: Refrigeration Installer Progress Note Tony Fortune 53 y.o. Date of Admission: 10/11/2014 Treatment Team: Consulting Physician: Anthony Chong MD Admitting Provider: Harika Apodaca MD CHIEF COMPLAINT: severe TBI, large right SDH with massive midline shift, IC hypertension HISTORY OF PRESENT ILLNESS The patient is a 53 y.o. male with significant past medical history of chronic alcohol abus e and multiple falls. Per ED report from [facility]: he was drinking earlier today at home and fell twice. He went to bed and then he was noted to be having what they thought was seizure activity and th ey could not wake him and called EMS. He was taken to the ED at [facility] in [place] a nd then transferred to the ED [...] FOR BLEED; Surgeon: Anthony Chong MD; Location: [facility] IN OR; Service: Neurosurgery; Laterality: Right; Craniectomy Right 10/11/2014 Procedure: CRANIECTOMY; Surgeon: Anthony Chong MD; Location: [facility] OR; Ser vice: Neurosurgery; Laterality: Right; ALLERGIES [...] 14 2014 5:24AM Refe savage Provider Line: [phone] ID: [id number] Xr Chest 1 View 10/14/2014 [...] Author: TABITHA Sidhu Service: (none) Author Type: Packing Shed Supervisor Filed: 10/16/14 1251 Date of Service: 10/15/14 1132 Status: Addendum Nutritional Services Cook: TABITHA Sidhu (Packing Shed Supervisor) Related Notes: Original Note by TABITHA Sidhu (Packing Shed Supervisor) filed at 10/15/14 1135 Attended morning rounds. Pt is extubated. Will need TBI rehab. Has [place] Medicaid. Referral made to [facility] ([phone]). Faxed initial referral info and updated clinical. Await return call regarding acceptance and bed availability. onver alem Transaction, Provider Unknown - 10/15/2014 11:06 AM PST Therapy Progress Note by ИВАН Poole at 10/15/14 1106 Author: ИВАН Poole Service: (none) Author Type: Massage Therapist Filed: 10/15/14 1106 Date of Service: 10/15/14 1106 Status: Signed Nutritional Services Cook: ИВАН Poole (Massage Therapist) 10/15/14 1100 MT Last Visit MT Received On 10/15/14 MT Therapy Visit On hold (due to temp >100F in last 24 hrs) Helen Campos MS [facility]-ADMINISTRATIVE DIRECTOR - 10/15/2014 8:30 AM PSTFormatting of this note might be different f rom the original. Therapy Progress Note by Helen Brian MS CFY-ADMINISTRATIVE DIRECTOR at 10/15/14829 Author: MS KT Waters-ADMINISTRATIVE DIRECTOR Service: (none) Author Type: Speech and Language Pa thologist Filed: 10/15/14907 Date of Service: 10/15/14829 Status: Signed Nutritional Services Cook: MS KT Waters-ADMINISTRATIVE DIRECTOR (Speech and Language Pathologist) 10/15/14829 Swallowing Assessment [...] cough w/ all straw and cup trials) Wolf Trap Presentation Cup;Spoon Oral Spillage Left;Increased Anterior to Posterior Transit Pharyngeal Phase Delayed swallow initiated;Decreased laryngeal elevation upon palpation;Cou gh - delayed (delayed cough in 2/6 trials by cup, no cough by spoon) Puree Presentation Spoon Oral Phase Increased oral holding time Pharyngeal Delayed Swallow;Decreased Laryngeal Elevation;Spontaneous double swallow Recommendations Liquids Consistency Recommendations Wolf Trap thick;Ice chips for oral comfort (NO STRAWS) [...] monitoring;Patient/Family education;Assessment for upgr khadijah Dysphagia Goals Custodial Goals Safe/efficient oral intake;Advanced diet Pt will have safe/efficient oral intake Wolf Trap thick liquids;Puree diet;New/revised goal Pt will advanced diet in 3 days;New/revised goal Short Term Goals Tolerate diet upgrade trials Pt will tolerate diet upgrade trials With 1:1 supervision;New/revised goal onversio n Transaction, Provider Unknown - 10/14/2014 4:48 PM PSTFormatting of this note might be di fferent from the original. Progress Notes by Massiel Stovall RN at 10/14/14 9219 Author: Massiel Stovall RN Service: (none) Author Type: Registered Nurse Filed: 10/14/14 144 Date of Service: 10/14/141647 Status: Signed Nutritional Services Cook: Massiel Stovall RN (Registered Nurse) Phoned Pt [...] 1413 Date of Service: 10/14/141411 Status: Signed Nutritional Services Cook: Maria Teresa Castillo RN (Registered Nurse) No need for PICC line at time. Time. Informed Na, REMNANTS CUTTER to reorder if needed. Idalmis, Primar y RN to change IV today. MARIA TERESA CASTILLO RN Coral nichole, JENNIFER Arango - 10/14/2014 12:33 PM PSTFormatting of this note might be different f rom the original. Progress Notes by JENNIFER Small at 10/14/14 1233 Author: JENNIFER Small Service: Refrigeration Installer Author Type: Refrigeration Installer Filed: 10/14/14 1316 Date of Service: 10/14/14 1233 Status: Signed Nutritional Services Cook: JENNIFER Small (Nurse Practitioner) [facility] Service: Refrigeration Installer Progress Note Tony Fortune 53 y.o. Date of Admission: 10/11/2014 Treatment Team: Consulting Physician: Anthony Chong MD Admitting Provider: Harika Apodaca MD CHIEF COMPLAINT: severe TBI, large right SDH with massive midline shift, IC hypertension HISTORY OF PRESENT ILLNESS The patient is a 53 y.o. male with significant past medical history of chronic alcohol abus e and multiple falls. Per ED report from [facility]: he was drinking earlier today at home and fell twice. He went to bed and then he was noted to be having what they thought was seizure activity and th ey could not wake him and called EMS. He was taken to the ED at [facility] in [place] a nd then transferred to the ED [...] FOR BLEED; Surgeon: Anthony Chong MD; Location: [facility] IN OR; Service: Neurosurgery; Laterality: Right; Craniectomy Right 10/11/2014 Procedure: CRANIECTOMY; Surgeon: Anthony Chong MD; Location: [facility]; Ser vice: Neurosurgery; Laterality: Right; ALLERGIES Allergies [...] heels LINES/TUBES: PIVs, daniels cath, left radial [place] DATA Recent Labs Lab 10/14/14 0415 10/13/14 [...] 14 2014 5:24AM Refe [place] Provider Line: [phone] ID: [id number] Xr Chest 1 View 10/14/2014 [...] 10/14/14644 Date of Service: 10/14/14644 Status: Signed Nutritional Services Cook: Sophy Vargas RPH (Pharmacist) Day 2 Vanco [...] 10/13/142099 Date of Service: 10/13/142099 Status: Signed Nutritional Services Cook: Glenys Aguila RPH (Pharmacist) Clinical Pharmacy Note: [...] - 11.0 K/uL Final Testing performed at [facility], [address] [place] [address] INDICATION: CAP Will begin Vancomycin 1750 mg [...] 10/13/141636 Date of Service: 10/13/141636 Status: Signed Nutritional Services Cook: Massiel Stovall RN (Registered Nurse) Pulmonary edema in process of resolving. tephe Anthony pierre MD - 10/13/2014 4:04 PM PSTFormatting of this note might be different from t he original. Progress Notes by Anthony Chong MD at 10/13/14 1604 Author: Anthony Chong MD Service: Neurosurgery Author Type: Physician Filed: 10/13/141606 Date of Service: 10/13/141603 Status: Signed Nutritional Services Cook: Anthony Chong MD (Physician) [facility] Service: Neurosurgery Progress Note Hospital Day: [...] nystatin, nystatin, ondansetron OR ondanset gildardo, pancrelipase (Fev-Inhx-Mbyc) 10,000 units, petrolatum, phosphorus OR sodium phospha [...] Date of Service: 10/13/14 1530 Status: Signed Nutritional Services Cook: Massiel Stovall RN (Registered Nurse) Pt went into flash pulmonary edema, And [facility] side. [facility] cam[facility], JENNIFER Arango - 10/13/2014 2:57 PM PSTFormatting of this note might be different f rom the original. Progress Notes by JENNIFER Small at 10/13/14 0667 Author: JENNIFER Small Service: Refrigeration Installer Author Type: Refrigeration Installer Filed: 10/13/14 1510 Date of Service: 10/13/141456 Status: Signed Nutritional Services Cook: JENNIFER Small (Nurse Practitioner) [facility] Service: Refrigeration Installer Progress Note Tony Fortune 53 y.o. Date of Admission: 10/11/2014 Treatment Team: Consulting Physician: Anthony Chong MD Admitting Provider: Harika Apodaca MD CHIEF COMPLAINT: severe TBI, large right SDH with massive midline shift, IC hypertension HISTORY OF PRESENT ILLNESS The patient is a 53 y.o. male with significant past medical history of chronic alcohol abus e and multiple falls. Per ED report from [facility]: he was drinking earlier today at home and fell twice. He went to bed and then he was noted to be having what they thought was seizure activity and th ey could not wake him and called EMS. He was taken to the ED at [facility] in [place] a nd then transferred to the ED [...] FOR BLEED; Surgeon: Anthony Chong MD; Location: [facility] IN OR; Service: Neurosurgery; Laterality: Right; Craniectomy Right 10/11/2014 Procedure: CRANIECTOMY; Surgeon: Anthony Chong MD; Location: [facility] OR; Ser vice: Neurosurgery; Laterality: Right; ALLERGIES [...] heels LINES/TUBES: PIVs, daniels cath, left radial [place] DATA Recent Labs Lab 10/13/14 0247 10/12/14 [...] 10/13/14446 Date of Service: 10/13/14442 Status: Signed Nutritional Services Cook: Mikki Jules RRT (Registered Respiratory Therapist) RT [...] at 10/12/142015 Author: Harika Apodaca MD Service: Refrigeration Installer Author Type: Refrigeration Installer Filed: 10/12/142026 Date of Service: 10/12/142015 Status: Signed Nutritional Services Cook: Harika Apodaca MD (Physician) [facility] Service: Refrigeration Installer Progress Note Tony Fortune 53 y.o. Date [...] and multiple falls. Per ED report from [facility]: he was drinking earlier today and fe ll twice. He went to bed and then he was noted to be having what they thought was seizure ac tivity and they could not wake him and called EMS. He was taken to the ED at [facility] and then transferred to the ED [...] but has cough and corneal reflexes. Dr. Cohng did a decompressive hem icraniectomy with evacuation [...] FOR BLEED; Surgeon: Anthony Chong MD; Location: [facility] IN OR; Service: Neurosurgery; Laterality: Right; Craniectomy Right 10/11/2014 Procedure: CRANIECTOMY; Surgeon: Anthony Chong MD; Location: [facility] OR; Ser vice: Neurosurgery; Laterality: Right; ALLERGIES [...] 4 mm and reactive. Motor: Able to survey researcher RUE to command and left LE to [...] Case Management by TABITHA Sidhu at 10/12/14 5521 Author: TABITHA Sidhu Service: (none) Author Type: Packing Shed Supervisor Filed: 10/12/14 7142 Date of Service: 10/12/141529 Status: Signed Nutritional Services Cook: TABITHA Sidhu (Packing Shed Supervisor) Attended morning rounds. Pt is vented and admitted with TBI. No family have visited yet lissett kothari. Pt appears to be responding to some commands. He is a drinker. He reportedly has had s everal falls recently. Pt will need TBI rehab. He is from [place], [place] and [place]. If he requires LTAC h e will need to go to [facility] as [place] Medicaid is contracted with [facility] only. Will c omplete assessment when family arrives. tAnthony rodriguez MD - 10/12/2014 2:04 PM PSTFormatting of this note might be different from t he original. Progress Notes by Anthony Chong MD at 10/12/14 6173 Author: Anthony Chong MD Service: Neurosurgery Author Type: Physician Filed: 10/12/14 3571 Date of Service: 10/12/141403 Status: Signed Nutritional Services Cook: Anthony Chong MD (Physician) [facility] Service: Neurosurgery Progress Note Hospital Day: [...] 10/11/142351 Date of Service: 10/11/142349 Status: Signed Nutritional Services Cook: Trena Gilbert () [facility] Nayana called with request from family. When I arrived at hospital family had already left. I will leave info for morning greenhouse grower to visit tomorrow. Chaplain Trena Gilbert onver alem Transaction, Provider Unknown - 10/11/2014 11:02 PM PST Progress Notes by Glenys Aguila RPH at 10/11/142301 Author: Glenys Aguila RPH Service: (none) Author Type: Pharmacist Filed: 10/11/142301 Date of Service: 10/11/142301 Status: Signed Nutritional Services Cook: Glenys Aguila RPH (Pharmacist) Clinical Pharmacy Note: [...] | | | | | [place] [address] | | | | + + + + + + | Cl | 101Comment: Testing | 99 - 109 mmol/L | EXTERNAL | | | | performed at [facility], [address] | | LAB | | | | [address], | | | | | | [place] [address] | | | | + + + + + + | CO2 | 28Comment: Testing | 23 - 32 mmol/L | EXTERNAL | | | | performed at [facility], [address] | | LAB | | | | [address], | | | | | | [place] [address] | | | | + + + + + + | Anion Gap | 9Comment: Testing | 5 - 20 mmol/L | EXTERNAL | | | | performed at [facility], [address] | | LAB | | | | [address], | | | | | | [place] [address] | | | | + + + + + + | Glucose, | 119 (H)Comment: Testing | 65 - 99 mg/dL | EXTERNAL | | | Fasting | performed at [facility], [address] | | LAB | | | | [address], | | | | | | [place] [address] | | | | + + + + + + | BUN | 8Comment: Testing | 8 - 25 mg/dL | EXTERNAL | | | | performed at [facility], [address] | | LAB | | | | [address], | | | | | | [place] [address] | | | | + + + + + + | Creatinine | 0.54 (L)Comment: Testing | 0.70 - 1.30 | EXTERNAL | | | | performed at [facility], [address] | mg/dL | LAB | | | | [address], | | | | | | [place] [address] | | | | + + + + + + | BUN/Creatin | 15Comment: Testing | | EXTERNAL | | | ine Ratio | performed at [facility], [address] | | LAB | | | | [address], | | | | | | [place] [address] | | | | + + + + + + | Calcium | 9.4Comment: NOTE NEW | 8.5 - 10.5 | EXTERNAL | | | | REFERENCE RANGETesting | mg/dL | LAB | | | | performed at [facility], [address] | | | | | | [address], | | | | | | [place] [address] | | | | + + + [...] | | | | | | at [facility], [address] | | | | | | [facility], | | | | | | [place] [address] | | | | + + + [...] | | | | | [place] [address] | | | | + + + + + + | K | 3.6Comment: Testing | 3.5 - 4.9 | EXTERNAL | | | | performed at [facility], [address] | mmol/L | LAB | | | | [address], | | | | | | [place] [address] | | | | + + + + + + | Cl | 101Comment: Testing | 99 - 109 mmol/L | EXTERNAL | | | | performed at [facility], [address] | | LAB | | | | [address], | | | | | | [place] [address] | | | | + + + + + + | CO2 | 29Comment: Testing | 23 - 32 mmol/L | EXTERNAL | | | | performed at [facility], [address] | | LAB | | | | [address], | | | | | | [place] [address] | | | | + + + + + + | Anion Gap | 8Comment: Testing | 5 - 20 mmol/L | EXTERNAL | | | | performed at [facility], [address] | | LAB | | | | [address], | | | | | | [place] [address] | | | | + + + + + + | Glucose, | 118 (H)Comment: Testing | 65 - 99 mg/dL | EXTERNAL | | | Fasting | performed at [facility], [address] | | LAB | | | [address], | | | | | | [place] [address] | | | | + + + + + + | BUN | 7 (L)Comment: Testing | 8 - 25 mg/dL | EXTERNAL | | | | performed at [facility], [address] | | LAB | | | | [address], | | | | | | [place] [address] | | | | + + + + + + | Creatinine | 0.57 (L)Comment: Testing | 0.70 - 1.30 | EXTERNAL | | | | performed at [facility], [address] | mg/dL | LAB | | | | [address], | | | | | | [place] [address] | | | | + + + + + + | BUN/Creatin | 12Comment: Testing | | EXTERNAL | | | ine Ratio | performed at [facility], [address] | | LAB | | | | [address], | | | | | | [place] [address] | | | | + + + + + + | Calcium | 9.5Comment: NOTE NEW | 8.5 - 10.5 | EXTERNAL | | | | REFERENCE RANGETesting | mg/dL | LAB | | | | performed at [facility], [address] | | | | | | [address], | | | | | | [place] [address] | | | | + + + + + + | Protein, | 7.7Comment: Testing | 6.3 - 8.2 g/dL | EXTERNAL | | | Total | performed at [facility], [address] | | LAB | | | | [address], | | | | | | [place] [address] | | | | + + + + + + | Albumin | 3.5 (L)Comment: Testing | 3.6 - 5.0 g/dL | EXTERNAL | | | | performed at [facility], [address] | | LAB | | | | [address], | | | | | | [place] [address] | | | | + + + + + + | Globulin | 4.2Comment: Testing | 1.3 - 4.9 g/dL | EXTERNAL | | | | performed at [facility], [address] | | LAB | | | | [address], | | | | | | [place] [address] | | | | + + + + + + | A/G Ratio | 0.8 (L)Comment: Testing | 1.0 - 2.4 | EXTERNAL | | | | performed at [facility], [address] | | LAB | | | | [address], | | | | | | [place] [address] | | | | + + + + + + | Bilirubin | 0.6Comment: Testing | 0.1 - 1.5 mg/dL | EXTERNAL | | | Total | performed at [facility], [address] | | LAB | | | | [address], | | | | | | [place] [address] | | | | + + + + + + | ALP, | 225 (H)Comment: Testing | 35 - 115 U/L | EXTERNAL | | | External | performed at [facility], [address] | | LAB | | | | [address], | | | | | | [place] [address] | | | | + + + + + + | AST | 52 (H)Comment: Testing | 10 - 45 U/L | EXTERNAL | | | | performed at [facility], [address] | | LAB | | | | [address], | | | | | | [place] [address] | | | | + + + + + + | ALT | 46Comment: Testing | 10 - 65 U/L | EXTERNAL | | | | performed at [facility], [address] | | LAB | | | | [address], | | | | | | [place] [address] | | | | + + + [...] [address], | | | | | | [place] [address] | | | | + + + [...] EXTERNAL | | | | performed at [facility], [address] | | LAB | | | | [address], | | | | | | [place] [address] | | | | + + + + + + | RED CELL | 3.62 (L)Comment: Testing | 4.20 - 5.70 | EXTERNAL | | | COUNT | performed at [facility], [address] | M/uL | LAB | | | | [address], | | | | | | [place] [address] | | | | + + + + + + | Hgb | 12.0 (L)Comment: Testing | 13.2 - 17.0 | EXTERNAL | | | | performed at [facility], [address] | g/dL | LAB | | | | [address], | | | | | | [place] [address] | | | | + + + + + + | Hematocrit, | 36.2 (L)Comment: Testing | 39.0 - 50.0 % | EXTERNAL | | | POC | performed at [facility], [address] | | LAB | | | | [address], | | | | | | [place] [address] | | | | + + + + + + | MCV | 99.9Comment: Testing | 80.0 - 100.0 fl | EXTERNAL | | | | performed at [facility], [address] | | LAB | | | | [address], | | | | | | [place] [address] | | | | + + + + + + | MCH | 33.2Comment: Testing | 27.0 - 34.0 pg | EXTERNAL | | | | performed at [facility], [address] | | LAB | | | | [address], | | | | | | [place] [address] | | | | + + + + + + | MCHC | 33.2Comment: Testing | 32.0 - 35.5 | EXTERNAL | | | | performed at [facility], [address] | g/dL | LAB | | | | [address], | | | | | | [place] [address] | | | | + + + + + + | RDW-CV | 54.7 (H)Comment: Testing | 37 - 53 fl | EXTERNAL | | | | performed at [facility], [address] | | LAB | | | | [address], | | | | | | [place] [address] | | | | + + + + + + | Platelet | 286Comment: Testing | 150 - 400 K/uL | EXTERNAL | | | Count | performed at [facility], [address] | | LAB | | | Plasma | [address], | | | | | | [place] [address] | | | | + + + + + + | MPV | 8.2Comment: Testing | fl | EXTERNAL | | | | performed at [facility], [address] | | LAB | | | | [address], | | | | | | [place] [address] | | | | + + + + + + | Differentia | AUTOMATEDComment: | | EXTERNAL | | | l Type | Testing performed at | | LAB | | | | [facility], [address] | | | | | | [place] | | | | | | [address] | | | | + + + + + + | % Segmented | 72.2Comment: Testing | % | EXTERNAL | | | | performed at [facility], [address] | | LAB | | | Neutrophils | [address], | | | | | | [place] [address] | | | | + + + + + + | % | 16.2Comment: Testing | % | EXTERNAL | | | Lymphocytes | performed at [facility], [address] | | LAB | | | | [address], | | | | | | [place] [address] | | | | + + + + + + | % Monocytes | 7.9Comment: Testing | % | EXTERNAL | | | | performed at [facility], [address] | | LAB | | | | [address], | | | | | | [place] [address] | | | | + + + + + + | % | 3.0Comment: Testing | % | EXTERNAL | | | Eosinophils | performed at [facility], [address] | | LAB | | | | [address], | | | | | | [place] [address] | | | | + + + + + + | % Basophils | 0.7Comment: Testing | % | EXTERNAL | | | | performed at [facility], [address] | | LAB | | | | [address], | | | | | | [place] [address] | | | | + + + + + + | Absolute | 5.7Comment: Testing | 1.9 - 7.4 K/uL | EXTERNAL | | | Segmented | performed at [facility], [address] | | LAB | | | Neutrophils | [address], | | | | | | [place] [address] | | | | + + + + + + | Absolute | 1.3Comment: Testing | 1.0 - 3.9 K/uL | EXTERNAL | | | Lymphocytes | performed at [facility], [address] | | LAB | | | | [address], | | | | | | [place] [address] | | | | + + + + + + | Absolute | 0.6Comment: Testing | 0 - 0.8 K/uL | EXTERNAL | | | Monocytes | performed at [facility], [address] | | LAB | | | | [address], | | | | | | [place] [address] | | | | + + + + + + | Absolute | 0.2Comment: Testing | 0 - 0.5 K/uL | EXTERNAL | | | Eosinophils | performed at [facility], [address] | | LAB | | | | [address], | | | | | | [place] [address] | | | | + + + + + + | Absolute | 0.1Comment: Testing | 0 - 0.1 K/uL | EXTERNAL | | | Basophils | performed at [facility], [address] | | LAB | | | | [address], | | | | | | [place] [address] | | | | + + + [...] EXTERNAL | | | | performed at [facility];[address] | | LAB | | | | [address];[place] | | | | | | [address] | | | | + + + [...] | | | | | [place] [address] | | | | + + + + + + | K | 3.5Comment: Testing | 3.5 - 4.9 | EXTERNAL | | | | performed at [facility], [address] | mmol/L | LAB | | | | [address], | | | | | | [place] [address] | | | | + + + + + + | Cl | 100Comment: Testing | 99 - 109 mmol/L | EXTERNAL | | | | performed at [facility], [address] | | LAB | | | | [address], | | | | | | [place] [address] | | | | + + + + + + | CO2 | 26Comment: Testing | 23 - 32 mmol/L | EXTERNAL | | | | performed at [facility], [address] | | LAB | | | | [address], | | | | | | [place] [address] | | | | + + + + + + | Anion Gap | 11Comment: Testing | 5 - 20 mmol/L | EXTERNAL | | | | performed at [facility], [address] | | LAB | | | | [address], | | | | | | [place] [address] | | | | + + + + + + | Glucose, | 112 (H)Comment: Testing | 65 - 99 mg/dL | EXTERNAL | | | Fasting | performed at [facility], [address] | | LAB | | | | [address], | | | | | | [place] [address] | | | | + + + + + + | BUN | 8Comment: Testing | 8 - 25 mg/dL | EXTERNAL | | | | performed at [facility], [address] | | LAB | | | | [address], | | | | | | [place] [address] | | | | + + + + + + | Creatinine | 0.65 (L)Comment: Testing | 0.70 - 1.30 | EXTERNAL | | | | performed at [facility], [address] | mg/dL | LAB | | | | [address], | | | | | | [place] [address] | | | | + + + + + + | BUN/Creatin | 12Comment: Testing | | EXTERNAL | | | ine Ratio | performed at [facility], [address] | | LAB | | | | [address], | | | | | | [place] [address] | | | | + + + + + + | Calcium | 9.2Comment: NOTE NEW | 8.5 - 10.5 | EXTERNAL | | | | REFERENCE RANGETesting | mg/dL | LAB | | | | performed at [facility], [address] | | | | | | [address], | | | | | | [place] [address] | | | | + + + [...] | | | | | | at [facility], [address] | | | | | | [facility], | | | | | | [place] [address] | | | | + + + [...] EXTERNAL | | | | performed at [facility], [address] | mmol/L | LAB | | | | [address], | | | | | | [place] [address] | | | | + + + + + + | K | 3.6Comment: Testing | 3.5 - 4.9 | EXTERNAL | | | | performed at [facility], [address] | mmol/L | LAB | | | | [address], | | | | | | [place], [place] [address] | | | | + + + + + + | Cl | 100Comment: Testing | 99 - 109 mmol/L | EXTERNAL | | | | performed at [facility], [address] | | LAB | | | | [address], | | | | | | [place], [place] [address] | | | | + + + + + + | CO2 | 27Comment: Testing | 23 - 32 mmol/L | EXTERNAL | | | | performed at [facility], [address] | | LAB | | | | [address], | | | | | | [place] [address] | | | | + + + + + + | Anion Gap | 10Comment: Testing | 5 - 20 mmol/L | EXTERNAL | | | | performed at [facility], [address] | | LAB | | | | [address], | | | | | | [place] [address] | | | | + + + + + + | Glucose, | 119 (H)Comment: Testing | 65 - 99 mg/dL | EXTERNAL | | | Fasting | performed at [facility], [address] | | LAB | | | | [address], | | | | | | [place] [address] | | | | + + + + + + | BUN | 11Comment: Testing | 8 - 25 mg/dL | EXTERNAL | | | | performed at [facility], [address] | | LAB | | | | [address], | | | | | | [place] [address] | | | | + + + + + + | Creatinine | 0.64 (L)Comment: Testing | 0.70 - 1.30 | EXTERNAL | | | | performed at [facility], [address] | mg/dL | LAB | | | | [address], | | | | | | [place] [address] | | | | + + + + + + | BUN/Creatin | 17Comment: Testing | | EXTERNAL | | | ine Ratio | performed at [facility], [address] | | LAB | | | | [address], | | | | | | [place] [address] | | | | + + + + + + | Calcium | 9.4Comment: NOTE NEW | 8.5 - 10.5 | EXTERNAL | | | | REFERENCE RANGETesting | mg/dL | LAB | | | | performed at [facility], [address] | | | | | | [address], | | | | | | [place] [address] | | | | + + + [...] | | | | | | at [facility], [address] | | | | | | [address], | | | | | | [place] [address] | | | | + + + [...] | | | | | [place] [address] | | | | + + + + + + | RED CELL | 3.83 (L)Comment: Testing | 4.20 - 5.70 | EXTERNAL | | | COUNT | performed at [facility], [address] | M/uL | LAB | | | | [address], | | | | | | [place] [address] | | | | + + + + + + | Hgb | 12.8 (L)Comment: Testing | 13.2 - 17.0 | EXTERNAL | | | | performed at [facility], [address] | g/dL | LAB | | | | [address], | | | | | | [place] [address] | | | | + + + + + + | Hematocrit, | 38.0 (L)Comment: Testing | 39.0 - 50.0 % | EXTERNAL | | | POC | performed at [facility], [address] | | LAB | | | | [address], | | | | | | [place] [address] | | | | + + + + + + | MCV | 99.2Comment: Testing | 80.0 - 100.0 fl | EXTERNAL | | | | performed at [facility], [address] | | LAB | | | | [address], | | | | | | [place] [address] | | | | + + + + + + | MCH | 33.3Comment: Testing | 27.0 - 34.0 pg | EXTERNAL | | | | performed at [facility], [address] | | LAB | | | | [address], | | | | | | [place] [address] | | | | + + + + + + | MCHC | 33.6Comment: Testing | 32.0 - 35.5 | EXTERNAL | | | | performed at [facility], [address] | g/dL | LAB | | | | [address], | | | | | | [place] [address] | | | | + + + + + + | RDW-CV | 56.9 (H)Comment: Testing | 37 - 53 fl | EXTERNAL | | | | performed at [facility], [address] | | LAB | | | | [address], | | | | | | [place] [address] | | | | + + + + + + | Platelet | 327Comment: Testing | 150 - 400 K/uL | EXTERNAL | | | Count | performed at [facility], [address] | | LAB | | | Plasma | [address], | | | | | | [place] [address] | | | | + + + + + + | MPV | 8.3Comment: Testing | fl | EXTERNAL | | | | performed at [facility], [address] | | LAB | | | | [address], | | | | | | [place] [address] | | | | + + + + + + | Differentia | AUTOMATEDComment: | | EXTERNAL | | | l Type | Testing performed at | | LAB | | | | [facility], [address] | | | | | | [place] | | | | | | [address] | | | | + + + + + + | % Segmented | 72.8Comment: Testing | % | EXTERNAL | | | | performed at [facility], [address] | | LAB | | | Neutrophils | [address], | | | | | | [place] [address] | | | | + + + + + + | % | 16.9Comment: Testing | % | EXTERNAL | | | Lymphocytes | performed at [facility], [address] | | LAB | | | | [address], | | | | | | [place] [address] | | | | + + + + + + | % Monocytes | 7.6Comment: Testing | % | EXTERNAL | | | | performed at [facility], [address] | | LAB | | | | [address], | | | | | | [place] [address] | | | | + + + + + + | % | 2.0Comment: Testing | % | EXTERNAL | | | Eosinophils | performed at [facility], [address] | | LAB | | | | [address], | | | | | | [place] [address] | | | | + + + [...] | | | Segmented | performed at [facility], [address] | | LAB | | | Neutrophils | [address], | | | | | | [place] [address] | | | | + + + + + + | Absolute | 1.6Comment: Testing | 1.0 - 3.9 K/uL | EXTERNAL | | | Lymphocytes | performed at [facility], [address] | | LAB | | | | [address], | | | | | | [place] [address] | | | | + + + + + + | Absolute | 0.7Comment: Testing | 0 - 0.8 K/uL | EXTERNAL | | | Monocytes | performed at [facility], [address] | | LAB | | | | [address], | | | | | | [place] [address] | | | | + + + + + + | Absolute | 0.2Comment: Testing | 0 - 0.5 K/uL | EXTERNAL | | | Eosinophils | performed at [facility], [address] | | LAB | | | | [address], | | | | | | [place] [address] | | | | + + + + + + | Absolute | 0.1Comment: Testing | 0 - 0.1 K/uL | EXTERNAL | | | Basophils | performed at [facility], [address] | | LAB | | | | [address], | | | | | | [place] [address] | | | | + + + [...] EXTERNAL | | | | performed at [facility];[address] | | LAB | | | | [address];[place], [place] | | | | | | [address] | | | | + + + [...] | | | | | [place] [address] | | | | + + + + + + | K | 3.8Comment: Testing | 3.5 - 4.9 | EXTERNAL | | | | performed at [facility], [address] | mmol/L | LAB | | | | [address], | | | | | | [place] [address] | | | | + + + + + + | Cl | 98 (L)Comment: Testing | 99 - 109 mmol/L | EXTERNAL | | | | performed at [facility], [address] | | LAB | | | | [address], | | | | | | [place] [address] | | | | + + + + + + | CO2 | 26Comment: Testing | 23 - 32 mmol/L | EXTERNAL | | | | performed at [facility], [address] | | LAB | | | | [address], | | | | | | [place] [address] | | | | + + + + + + | Anion Gap | 11Comment: Testing | 5 - 20 mmol/L | EXTERNAL | | | | performed at [facility], [address] | | LAB | | | | [address], | | | | | | [place] [address] | | | | + + + + + + | Glucose, | 121 (H)Comment: Testing | 65 - 99 mg/dL | EXTERNAL | | | Fasting | performed at [facility], [address] | | LAB | | | | [address], | | | | | | [place] [address] | | | | + + + + + + | BUN | 10Comment: Testing | 8 - 25 mg/dL | EXTERNAL | | | | performed at [facility], [address] | | LAB | | | | [address], | | | | | | [place] [address] | | | | + + + + + + | Creatinine | 0.60 (L)Comment: Testing | 0.70 - 1.30 | EXTERNAL | | | | performed at [facility], [address] | mg/dL | LAB | | | | [address], | | | | | | [place] [address] | | | | + + + + + + | BUN/Creatin | 17Comment: Testing | | EXTERNAL | | | ine Ratio | performed at [facility], [address] | | LAB | | | | [address], | | | | | | [place] [address] | | | | + + + + + + | Calcium | 9.3Comment: NOTE NEW | 8.5 - 10.5 | EXTERNAL | | | | REFERENCE RANGETesting | mg/dL | LAB | | | | performed at [facility], [address] | | | | | | [address], | | | | | | [place] [address] | | | | + + + [...] | | | | | | at [facility], [address] | | | | | | [address], | | | | | | [place] [address] | | | | + + + [...] EXTERNAL | | | | performed at [facility], [address] | | LAB | | | | [address], | | | | | | [place] [address] | | | | + + + + + + | RED CELL | 3.77 (L)Comment: Testing | 4.20 - 5.70 | EXTERNAL | | | COUNT | performed at [facility], [address] | [address]/u[address] | LAB | | | | [address], | | | | | | [place] [address] | | | | + + + + + + | Hgb | 12.2 (L)Comment: Testing | 13.2 - 17.0 | EXTERNAL | | | | performed at [facility], [address] | g/dL | LAB | | | | [address], | | | | | | [place] [address] | | | | + + + + + + | Hematocrit, | 37.3 (L)Comment: Testing | 39.0 - 50.0 % | EXTERNAL | | | POC | performed at [facility], [address] | | LAB | | | | [address], | | | | | | [place] [address] | | | | + + + + + + | MCV | 98.9Comment: Testing | 80.0 - 100.0 fl | EXTERNAL | | | | performed at [facility], [address] | | LAB | | | | [address], | | | | | | [place] [address] | | | | + + + + + + | MCH | 32.3Comment: Testing | 27.0 - 34.0 pg | EXTERNAL | | | | performed at [facility], [address] | | LAB | | | | [address], | | | | | | [place] [address] | | | | + + + + + + | MCHC | 32.6Comment: Testing | 32.0 - 35.5 | EXTERNAL | | | | performed at [facility], [address] | g/dL | LAB | | | | [address], | | | | | | [place] [address] | | | | + + + + + + | RDW-CV | 58.6 (H)Comment: Testing | 37 - 53 fl | EXTERNAL | | | | performed at [facility], [address] | | LAB | | | | [address], | | | | | | [place] [address] | | | | + + + + + + | Platelet | 274Comment: Testing | 150 - 400 K/uL | EXTERNAL | | | Count | performed at [facility], [address] | | LAB | | | Plasma | [address], | | | | | | [place] [address] | | | | + + + + + + | MPV | 8.1Comment: Testing | fl | EXTERNAL | | | | performed at [facility], [address] | | LAB | | | | [address], | | | | | | [place] [address] | | | | + + + + + + | Differentia | AUTOMATEDComment: | | EXTERNAL | | | l Type | Testing performed at | | LAB | | | | [facility], [address] | | | | | | [place] | | | | | | [address] | | | | + + + + + + | % Segmented | 71.7Comment: Testing | % | EXTERNAL | | | | performed at [facility], [address] | | LAB | | | Neutrophils | [address], | | | | | | [place] [address] | | | | + + + + + + | % | 15.9Comment: Testing | % | EXTERNAL | | | Lymphocytes | performed at [facility], [address] | | LAB | | | | [address], | | | | | | [place] [address] | | | | + + + + + + | % Monocytes | 9.3Comment: Testing | % | EXTERNAL | | | | performed at [facility], [address] | | LAB | | | | [address], | | | | | | [place] [address] | | | | + + + + + + | % | 2.4Comment: Testing | % | EXTERNAL | | | Eosinophils | performed at [facility], [address] | | LAB | | | | [address], | | | | | | [place] [address] | | | | + + + + + + | % Basophils | 0.7Comment: Testing | % | EXTERNAL | | | | performed at [facility], [address] | | LAB | | | | [address], | | | | | | [place] [address] | | | | + + + + + + | Absolute | 6.7Comment: Testing | 1.9 - 7.4 K/uL | EXTERNAL | | | Segmented | performed at [facility], [address] | | LAB | | | Neutrophils | [address], | | | | | | [place] [address] | | | | + + + + + + | Absolute | 1.5Comment: Testing | 1.0 - 3.9 K/uL | EXTERNAL | | | Lymphocytes | performed at [facility], [address] | | LAB | | | | [address], | | | | | | [place] [address] | | | | + + + + + + | Absolute | 0.9 (H)Comment: Testing | 0 - 0.8 K/uL | EXTERNAL | | | Monocytes | performed at [facility], [address] | | LAB | | | | [address], | | | | | | [place] [address] | | | | + + + + + + | Absolute | 0.2Comment: Testing | 0 - 0.5 K/uL | EXTERNAL | | | Eosinophils | performed at [facility], [address] | | LAB | | | | [address], | | | | | | [place] [address] | | | | + + + + + + | Absolute | 0.1Comment: Testing | 0 - 0.1 K/uL | EXTERNAL | | | Basophils | performed at [facility], [address] | | LAB | | | | [address], | | | | | | [place] [address] | | | | + + + [...] EXTERNAL | | | | performed at [facility] | | LAB | | | | [address];[place] | | | | | | [address] | | | | + + + [...] EXTERNAL | | | | performed at [facility];[address] | mmol/L | LAB | | | | [address];[place] | | | | | | [address] | | | | + + + + + + | K | 4.0Comment: Testing | 3.5 - 4.9 | EXTERNAL | | | | performed at [facility];[address] | mmol/L | LAB | | | | [address];[place] | | | | | | [address] | | | | + + + + + + | Cl | 102Comment: Testing | 99 - 109 mmol/L | EXTERNAL | | | | performed at [facility];[address] | | LAB | | | | [address];[place] | | | | | | [address] | | | | + + + + + + | CO2 | 27Comment: Testing | 23 - 32 mmol/L | EXTERNAL | | | | performed at [facility];[address] | | LAB | | | | [address];[place] | | | | | | [address] | | | | + + + + + + | Anion Gap | 10Comment: Testing | 5 - 20 mmol/L | EXTERNAL | | | | performed at [facility];[address] | | LAB | | | | [address];[place] | | | | | | [address] | | | | + + + + + + | Glucose, | 128 (H)Comment: Testing | 65 - 99 mg/dL | EXTERNAL | | | Fasting | performed at [facility];[address] | | LAB | | | | [address];[place] | | | | | | [address] | | | | + + + + + + | BUN | 9Comment: Testing | 8 - 25 mg/dL | EXTERNAL | | | | performed at [facility];[address] | | LAB | | | | [address];[place] | | | | | | [address] | | | | + + + + + + | Creatinine | 0.78Comment: Testing | 0.70 - 1.30 | EXTERNAL | | | | performed at [facility];[address] | mg/dL | LAB | | | | [address];[place] | | | | | | [address] | | | | + + + + + + | BUN/Creatin | 12Comment: Testing | | EXTERNAL | | | ine Ratio | performed at [facility];[address] | | LAB | | | | [address];[place] | | | | | | [address] | | | | + + + + + + | Calcium | 8.4 (L)Comment: NOTE NEW | 8.5 - 10.5 | EXTERNAL | | | | REFERENCE RANGETesting | mg/dL | LAB | | | | performed at [facility];[address] | | | | | | [address];[place] | | | | | | [address] | | | | + + + [...] | | | | | | at [facility];[address] [place] [address] | | | | | | [facility];[place] [address] | | | | + + + [...] 7:38AM | | | Referring Provider Line: [phone] ID: [id number] | | + + + [...] 2014 | | 7:38AM Referring Provider Line: [phone] ID: [id number] | | | |IMPRESSION: | |Unchanged head CT compared to 10/16/2014. | | | |RADIA | | | | Electronically signed by Mariya Calzada MD on Oct 17 2014 7:38AM Referring Provider Dian e: [phone] ID: [id number] | + + Potassium (10/16/2014 5:47 PM PST) + + + + + + | Component | Value | Ref Range | Performed | Pathologist | | | | | At | Signature | + + + + + + | K | 4.2Comment: Testing | 3.5 - 4.9 | EXTERNAL | | | | performed at [facility];[address] | mmol/L | LAB | | | | [address];[place], [place] | | | | | | [address] | | | | + + + [...] 6:08AM | | | Referring Provider Line: [phone] ID: [id number] | | + + + [...] 2014 | | 6:08AM Referring Provider Line: [phone] ID: [id number] | | | |IMPRESSION: | | | |Right-sided drain has been removed. No evidence of interval hemorrhage or worsening mass ef fect. Hypodense subdural collection over the right frontal convexity has increased in size. Serial followup suggested. No other significant interval change. | | | | Electronically signed by Jimbo Mckeon MD on Oct 16 2014 6:08AM Referring Provider Line: [phone] ID: [id number] | + + External Lab: CBC (10/16/2014 4:09 AM PST) + + + + + + | Component | Value | Ref Range | Performed | Pathologist | | | | | At | Signature | + + + + + + | WBC | 8.7Comment: Testing | 3.8 - 11.0 K/uL | EXTERNAL | | | | performed at [facility], [address] | | LAB | | | | [address], | | | | | | [place] [address] | | | | + + + + + + | RED CELL | 3.62 (L)Comment: Testing | 4.20 - 5.70 | EXTERNAL | | | COUNT | performed at [facility], [address] | M/uL | LAB | | | | [address], | | | | | | [place] [address] | | | | + + + + + + | Hgb | 11.9 (L)Comment: Testing | 13.2 - 17.0 | EXTERNAL | | | | performed at [facility], [address] | g/dL | LAB | | | | [address], | | | | | | [place] [address] | | | | + + + + + + | Hematocrit, | 36.0 (L)Comment: Testing | 39.0 - 50.0 % | EXTERNAL | | | POC | performed at [facility], [address] | | LAB | | | | [address], | | | | | | [place] [address] | | | | + + + + + + | MCV | 99.4Comment: Testing | 80.0 - 100.0 fl | EXTERNAL | | | | performed at [facility], [address] | | LAB | | | | [address], | | | | | | [place] [address] | | | | + + + + + + | MCH | 32.9Comment: Testing | 27.0 - 34.0 pg | EXTERNAL | | | | performed at [facility], [address] | | LAB | | | | [address], | | | | | | [place] [address] | | | | + + + [...] | LAB | | | | [address], | | | | | | [place] [address] | | | | + + + + + + | Platelet | 201Comment: Testing | 150 - 400 K/uL | EXTERNAL | | | Count | performed at [facility], [address] | | LAB | | | Plasma | [address], | | | | | | [place] [address] | | | | + + + + + + | MPV | 8.2Comment: Testing | fl | EXTERNAL | | | | performed at [facility], [address] | | LAB | | | | [address], | | | | | | [place] [address] | | | | + + + + + + | Differentia | AUTOMATEDComment: | | EXTERNAL | | | l Type | Testing performed at | | LAB | | | | [facility], [address] | | | | | | [place] | | | | | | [address] | | | | + + + + + + | % Segmented | 77.8Comment: Testing | % | EXTERNAL | | | | performed at [facility], [address] | | LAB | | | Neutrophils | [address], | | | | | | [place] [address] | | | | + + + + + + | % | 9.6Comment: Testing | % | EXTERNAL | | | Lymphocytes | performed at [facility], [address] | | LAB | | | | [address], | | | | | | [place] [address] | | | | + + + + + + | % Monocytes | 10.5Comment: Testing | % | EXTERNAL | | | | performed at [facility], [address] | | LAB | | | | [address], | | | | | | [place] [address] | | | | + + + + + + | % | 1.6Comment: Testing | % | EXTERNAL | | | Eosinophils | performed at [facility], [address] | | LAB | | | | [address], | | | | | | [place] [address] | | | | + + + + + + | % Basophils | 0.5Comment: Testing | % | EXTERNAL | | | | performed at [facility], [address] | | LAB | | | | [address], | | | | | | [place] [address] | | | | + + + + + + | Absolute | 6.8Comment: Testing | 1.9 - 7.4 K/uL | EXTERNAL | | | Segmented | performed at [facility], [address] | | LAB | | | Neutrophils | [address], | | | | | | [place] [address] | | | | + + + + + + | Absolute | 0.8 (L)Comment: Testing | 1.0 - 3.9 K/uL | EXTERNAL | | | Lymphocytes | performed at [facility], [address] | | LAB | | | | [address], | | | | | | [place] [address] | | | | + + + + + + | Absolute | 0.9 (H)Comment: Testing | 0 - 0.8 K/uL | EXTERNAL | | | Monocytes | performed at [facility], [address] | | LAB | | | | [address], | | | | | | [place] [address] | | | | + + + + + + | Absolute | 0.1Comment: Testing | 0 - 0.5 K/uL | EXTERNAL | | | Eosinophils | performed at [facility], [address] | | LAB | | | | [address], | | | | | | [place] [address] | | | | + + + + + + | Absolute | 0.0Comment: Testing | 0 - 0.1 K/uL | EXTERNAL | | | Basophils | performed at [facility], [address] | | LAB | | | | [address], | | | | | | [place] [address] | | | | + + + [...] | | | | | [place] [address] | | | | + + + + + + | K | 3.4 (L)Comment: Testing | 3.5 - 4.9 | EXTERNAL | | | | performed at [facility], [address] | mmol/L | LAB | | | | [address], | | | | | | [place] [address] | | | | + + + + + + | Cl | 102Comment: Testing | 99 - 109 mmol/L | EXTERNAL | | | | performed at [facility], [address] | | LAB | | | | [address], | | | | | | [place] [address] | | | | + + + + + + | CO2 | 27Comment: Testing | 23 - 32 mmol/L | EXTERNAL | | | | performed at [facility], [address] | | LAB | | | | [address], | | | | | | [place] [address] | | | | + + + + + + | Anion Gap | 12Comment: Testing | 5 - 20 mmol/L | EXTERNAL | | | | performed at [facility], [address] | | LAB | | | | [address], | | | | | | [place] [address] | | | | + + + + + + | Glucose, | 151 (H)Comment: Testing | 65 - 99 mg/dL | EXTERNAL | | | Fasting | performed at [facility], [address] | | LAB | | | | [address], | | | | | | [place] [address] | | | | + + + + + + | BUN | 8Comment: Testing | 8 - 25 mg/dL | EXTERNAL | | | | performed at [facility], [address] | | LAB | | | | [address], | | | | | | [place] [address] | | | | + + + + + + | Creatinine | 0.44 (L)Comment: Testing | 0.70 - 1.30 | EXTERNAL | | | | performed at [facility], [address] | mg/dL | LAB | | | | [address], | | | | | | [place] [address] | | | | + + + + + + | BUN/Creatin | 18Comment: Testing | | EXTERNAL | | | ine Ratio | performed at [facility], [address] | | LAB | | | | [address], | | | | | | [place] [address] | | | | + + + + + + | Calcium | 9.1Comment: NOTE NEW | 8.5 - 10.5 | EXTERNAL | | | | REFERENCE RANGETesting | mg/dL | LAB | | | | performed at [facility], [address] | | | | | | [address], | | | | | | [place] [address] | | | | + + + [...] | | | | | | at [facility], [address] | | | | | | [address], | | | | | | [place] [address] | | | | + + + [...] LAB | | | | performed at [facility];[address] | | | | | | [address];[place], [place] | | | | | | [address] | | | | + + + [...] EXTERNAL | | | | performed at [facility], [address] | | LAB | | | | [address], | | | | | | [place] [address] | | | | + + + + + + | RED CELL | 3.36 (L)Comment: Testing | 4.20 - 5.70 | EXTERNAL | | | COUNT | performed at [facility], [address] | M/uL | LAB | | | | [address], | | | | | | [place] [address] | | | | + + + + + + | Hgb | 11.1 (L)Comment: Testing | 13.2 - 17.0 | EXTERNAL | | | | performed at [facility], [address] | g/dL | LAB | | | | [address], | | | | | | [place] [address] | | | | + + + + + + | Hematocrit, | 34.0 (L)Comment: Testing | 39.0 - 50.0 % | EXTERNAL | | | POC | performed at [facility], [address] | | LAB | | | | [address], | | | | | | [place] [address] | | | | + + + + + + | MCV | 101.0 (H)Comment: | 80.0 - 100.0 fl | EXTERNAL | | | | Testing performed at | | LAB | | | | [facility], [address] | | | | | | [place] | | | | | | [address] | | | | + + + + + + | MCH | 33.1Comment: Testing | 27.0 - 34.0 pg | EXTERNAL | | | | performed at [facility], [address] | | LAB | | | | [address], | | | | | | [place] [address] | | | | + + + + + + | MCHC | 32.7Comment: Testing | 32.0 - 35.5 | EXTERNAL | | | | performed at [facility], [address] | g/dL | LAB | | | | [address], | | | | | | [place] [address] | | | | + + + + + + | RDW-CV | 59.1 (H)Comment: Testing | 37 - 53 fl | EXTERNAL | | | | performed at [facility], [address] | | LAB | | | | [address], | | | | | | [place] [address] | | | | + + + + + + | Platelet | 162Comment: Testing | 150 - 400 K/uL | EXTERNAL | | | Count | performed at [facility], [address] | | LAB | | | Plasma | [address], | | | | | | [place] [address] | | | | + + + + + + | MPV | 8.6Comment: Testing | fl | EXTERNAL | | | | performed at [facility], [address] | | LAB | | | | [address], | | | | | | [place] [address] | | | | + + + + + + | Differentia | AUTOMATEDComment: | | EXTERNAL | | | l Type | Testing performed at | | LAB | | | | [facility], [address] | | | | | | [place] | | | | | | [address] | | | | + + + + + + | % Segmented | 72.7Comment: Testing | % | EXTERNAL | | | | performed at [facility], [address] | | LAB | | | Neutrophils | [address], | | | | | | [place] [address] | | | | + + + + + + | % | 12.1Comment: Testing | % | EXTERNAL | | | Lymphocytes | performed at [facility], [address] | | LAB | | | [address], | | | | | | [place] [address] | | | | + + + + + + | % Monocytes | 13.0Comment: Testing | % | EXTERNAL | | | | performed at [facility], [address] | | LAB | | | | [address], | | | | | | [place] [address] | | | | + + + + + + | % | 1.7Comment: Testing | % | EXTERNAL | | | Eosinophils | performed at [facility], [address] | | LAB | | | | [address], | | | | | | [place] [address] | | | | + + + + + + | % Basophils | 0.5Comment: Testing | % | EXTERNAL | | | | performed at [facility], [address] | | LAB | | | | [address], | | | | | | [place], [place] [address] | | | | + + + + + + | Absolute | 5.9Comment: Testing | 1.9 - 7.4 K/uL | EXTERNAL | | | Segmented | performed at [facility], [address] | | LAB | | | Neutrophils | [address], | | | | | | [place] [address] | | | | + + + + + + | Absolute | 1.0Comment: Testing | 1.0 - 3.9 K/uL | EXTERNAL | | | Lymphocytes | performed at [facility], [address] | | LAB | | | | [address], | | | | | | [place] [address] | | | | + + + + + + | Absolute | 1.1 (H)Comment: Testing | 0 - 0.8 K/uL | EXTERNAL | | | Monocytes | performed at [facility], [address] | | LAB | | | | [address], | | | | | | [place] [address] | | | | + + + + + + | Absolute | 0.1Comment: Testing | 0 - 0.5 K/uL | EXTERNAL | | | Eosinophils | performed at [facility], [address] | | LAB | | | | [address], | | | | | | [place] [address] | | | | + + + + + + | Absolute | 0.0Comment: Testing | 0 - 0.1 K/uL | EXTERNAL | | | Basophils | performed at [facility], [address] | | LAB | | | | [address], | | | | | | [place] [address] | | | | + + + [...] | | | | | [place] [address] | | | | + + + + + + | K | 3.8Comment: Testing | 3.5 - 4.9 | EXTERNAL | | | | performed at [facility], [address] | mmol/L | LAB | | | | [address], | | | | | | [place] [address] | | | | + + + + + + | Cl | 105Comment: Testing | 99 - 109 mmol/L | EXTERNAL | | | | performed at [facility], [address] | | LAB | | | | [address], | | | | | | [place] [address] | | | | + + + + + + | CO2 | 28Comment: Testing | 23 - 32 mmol/L | EXTERNAL | | | | performed at [facility], [address] | | LAB | | | | [address], | | | | | | [place] [address] | | | | + + + + + + | Anion Gap | 8Comment: Testing | 5 - 20 mmol/L | EXTERNAL | | | | performed at [facility], [address] | | LAB | | | | [address], | | | | | | [place] [address] | | | | + + + + + + | Glucose, | 112 (H)Comment: Testing | 65 - 99 mg/dL | EXTERNAL | | | Fasting | performed at [facility], [address] | | LAB | | | | [address], | | | | | | [place] [address] | | | | + + + + + + | BUN | 8Comment: Testing | 8 - 25 mg/dL | EXTERNAL | | | | performed at [facility], [address] | | LAB | | | | [address], | | | | | | [place] [address] | | | | + + + + + + | Creatinine | 0.51 (L)Comment: Testing | 0.70 - 1.30 | EXTERNAL | | | | performed at [facility], [address] | mg/dL | LAB | | | | [address], | | | | | | [place] [address] | | | | + + + + + + | BUN/Creatin | 16Comment: Testing | | EXTERNAL | | | ine Ratio | performed at [facility], [address] | | LAB | | | | [address], | | | | | | [place] [address] | | | | + + + + + + | Calcium | 8.5Comment: NOTE NEW | 8.5 - 10.5 | EXTERNAL | | | | REFERENCE RANGETesting | mg/dL | LAB | | | | performed at [facility], [address] | | | | | | [address], | | | | | | [place] [address] | | | | + + + [...] [address], | | | | | | [place] [address] | | | | + + + [...] EXTERNAL | | | | performed at [facility];[address] | mmol/L | LAB | | | | [address];[place] | | | | | | [address] | | | | + + + + + + | K | 3.5Comment: Testing | 3.5 - 4.9 | EXTERNAL | | | | performed at [facility];[address] | mmol/L | LAB | | | | [address];[place] | | | | | | [address] | | | | + + + + + + | Cl | 103Comment: Testing | 99 - 109 mmol/L | EXTERNAL | | | | performed at [facility];[address] | | LAB | | | | [address];[place] | | | | | | [address] | | | | + + + + + + | CO2 | 26Comment: Testing | 23 - 32 mmol/L | EXTERNAL | | | | performed at [facility];[address] | | LAB | | | | [address];[place] | | | | | | [address] | | | | + + + + + + | Anion Gap | 13Comment: Testing | 5 - 20 mmol/L | EXTERNAL | | | | performed at [facility];[address] | | LAB | | | | [address];[place] | | | | | | [address] | | | | + + + + + + | Glucose, | 134 (H)Comment: Testing | 65 - 99 mg/dL | EXTERNAL | | | Fasting | performed at [facility];[address] | | LAB | | | | [address];[place] | | | | | | [address] | | | | + + + + + + | BUN | 9Comment: Testing | 8 - 25 mg/dL | EXTERNAL | | | | performed at [facility];[address] | | LAB | | | | [address];[place] | | | | | | [address] | | | | + + + + + + | Creatinine | 0.75Comment: Testing | 0.70 - 1.30 | EXTERNAL | | | | performed at [facility];[address] | mg/dL | LAB | | | | [address];[place] | | | | | | [address] | | | | + + + + + + | BUN/Creatin | 12Comment: Testing | | EXTERNAL | | | ine Ratio | performed at [facility];[address] | | LAB | | | | [address];[place] | | | | | | [address] | | | | + + + + + + | Calcium | 8.3 (L)Comment: NOTE NEW | 8.5 - 10.5 | EXTERNAL | | | | REFERENCE RANGETesting | mg/dL | LAB | | | | performed at [facility];[address] | | | | | | [facility];[place], [place] | | | | | | [address] | | | | + + + [...] | | | | | | at [facility];[address];[place] [address] | | | | + + + [...] EXTERNAL | | | | performed at [facility];[address] | mmol/L | LAB | | | | [address];[place] | | | | | | [address] | | | | + + + [...] | | | Fingerstick | performed at [facility];[address] | | LAB | | | | [address];[place], [place] | | | | | | [address] | | | | + + + [...] 5.02 cm D-E Excursion: 1.80 cm E-F Titus: | | | 0.08 m/s EPSS: 0.51 [...] TV A Vishnu: 0.19 m/s TV Dec Titus: 1.11 m/s2 TV Dec Time: | | | 421.97 ms TV E Vishnu: 0.47 m/s TV E/A Ratio: 2.39 | | | Parts Assembler: GD Authenticated by: VISH ACOSTA MD Report [...] | Index (A-L): 25.12 ml/m2LAAs A2C: 17.63 [id number] A-L A2C: 49.96 mlLAESV MOD A2C: | | 47.06 mlLALs A2C: 5.28 cmLAAs A4C: 18.21 [id number] A-L A4C: 56.04 mlLAESV MOD A4C: | | 48.84 mlLALs A4C: 5.02 cmD-E Excursion: 1.80 cmE-F Titus: 0.08 m/sEPSS: 0.51 | | cmHR: 50.85 BPMAV maxP.46 mmHgAV meanP.08 mmHgAV Vmax: 1.16 m/Dmitry Vmean: | | 0.83 m/Dmitry VTI: 24.68 cmAVA Vmax: 3.04 cm2AVA (VTI): 2.96 [id number] Dopp: 1.67 | | l/[id number] Dopp: 3.62 l/minHR: 49.54 BPMLVOT maxP.42 mmHgLVOT [...] 1.86 m/sTV A Vishnu: 0.19 m/sTV Dec Titus: 1.11 m/s2TV | | Dec Time: 421.97 msTV E Vishnu: 0.47 m/sTV E/A Ratio: 2.39 Parts Assembler: | | GDAuthenticated by: VISH RHONDADANIEL [facility] Date/Time: 10-14-2014 18:41:15 | | IMPRESSION: 1. [...] | |D-E Excursion: 1.80 cm | |E-F Titus: 0.08 m/s | |EPSS: 0.51 cm | [...] A Vishnu: 0.19 m/s | |TV Dec Titus: 1.11 m/s2 | |TV Dec Time: 421.97 ms | |TV E Vishnu: 0.47 m/s | |TV E/A Ratio: 2.39 | | | |Parts Assembler: GD | |Authenticated by: VISH ACOSTA MD [...] | | | 5:24AM Referring Provider Line: [phone] ID: [id number] | | + + + [...] 2014 | | 5:24AM Referring Provider Line: [phone] ID: [id number] | | | |IMPRESSION: | [...] Oct 14 2014 5:24AM Referring Provider Line: [phone] ID: [id number] | + + External Lab: [...] | | | | | [place] [address] | | | | + + + + + + | RED CELL | 2.96 (L)Comment: Testing | 4.20 - 5.70 | EXTERNAL | | | COUNT | performed at [facility], [address] | [address]/u[address] | LAB | | | | [address], | | | | | | [place] [address] | | | | + + + + + + | Hgb | 9.7 (L)Comment: Testing | 13.2 - 17.0 | EXTERNAL | | | | performed at [facility], [address] | g/dL | LAB | | | | [address], | | | | | | [place] [address] | | | | + + + + + + | Hematocrit, | 29.4 (L)Comment: Testing | 39.0 - 50.0 % | EXTERNAL | | | POC | performed at [facility], [address] | | LAB | | | | [address], | | | | | | [place] [address] | | | | + + + + + + | MCV | 99.5Comment: Testing | 80.0 - 100.0 fl | EXTERNAL | | | | performed at [facility], [address] | | LAB | | | [address], | | | | | | [place] [address] | | | | + + + + + + | MCH | 32.7Comment: Testing | 27.0 - 34.0 pg | EXTERNAL | | | | performed at [facility], [address] | | LAB | | | | [address], | | | | | | [place] [address] | | | | + + + + + + | MCHC | 32.9Comment: Testing | 32.0 - 35.5 | EXTERNAL | | | | performed at [facility], [address] | g/dL | LAB | | | | [place], | | | | | | [place] [address] | | | | + + + + + + | RDW-CV | 59.1 (H)Comment: Testing | 37 - 53 fl | EXTERNAL | | | | performed at [facility], [address] | | LAB | | | | [address], | | | | | | [place] [address] | | | | + + + + + + | Platelet | 124 (L)Comment: Testing | 150 - 400 K/uL | EXTERNAL | | | Count | performed at [facility], [address] | | LAB | | | Plasma | [address], | | | | | | [place] [address] | | | | + + + + + + | MPV | 8.6Comment: Testing | fl | EXTERNAL | | | | performed at [facility], [address] | | LAB | | | | [address], | | | | | | [place] [address] | | | | + + + + + + | Differentia | AUTOMATEDComment: | | EXTERNAL | | | l Type | Testing performed at | | LAB | | | | [facility], [address] | | | | | | [place] | | | | | | [address] | | | | + + + + + + | % Segmented | 81.9Comment: Testing | % | EXTERNAL | | | | performed at [facility], [address] | | LAB | | | Neutrophils | [address], | | | | | | [place] [address] | | | | + + + + + + | % | 7.9Comment: Testing | % | EXTERNAL | | | Lymphocytes | performed at [facility], [address] | | LAB | | | | [address], | | | | | | [place], [place] [address] | | | | + + + + + + | % Monocytes | 9.3Comment: Testing | % | EXTERNAL | | | | performed at [facility], [address] | | LAB | | | | [address], | | | | | | [place] [address] | | | | + + + + + + | % | 0.7Comment: Testing | % | EXTERNAL | | | Eosinophils | performed at [facility], [address] | | LAB | | | | [address], | | | | | | [place] [address] | | | | + + + + + + | % Basophils | 0.2Comment: Testing | % | EXTERNAL | | | | performed at [facility], [address] | | LAB | | | | [address], | | | | | | [place] [address] | | | | + + + + + + | Absolute | 8.0 (H)Comment: Testing | 1.9 - 7.4 K/uL | EXTERNAL | | | Segmented | performed at [facility], [address] | | LAB | | | Neutrophils | [place] [address], | | | | | | [place] [address] | | | | + + + + + + | Absolute | 0.8 (L)Comment: Testing | 1.0 - 3.9 K/uL | EXTERNAL | | | Lymphocytes | performed at [facility], [address] | | LAB | | | | [place], | | | | | | [place] [address] | | | | + + + + + + | Absolute | 0.9 (H)Comment: Testing | 0 - 0.8 K/uL | EXTERNAL | | | Monocytes | performed at [facility], [address] | | LAB | | | | [address], | | | | | | [place] [address] | | | | + + + + + + | Absolute | 0.1Comment: Testing | 0 - 0.5 K/uL | EXTERNAL | | | Eosinophils | performed at [facility], [address] | | LAB | | | | [address], | | | | | | [place] [address] | | | | + + + + + + | Absolute | 0.0Comment: Testing | 0 - 0.1 K/uL | EXTERNAL | | | Basophils | performed at [facility], [address] | | LAB | | | | [address], | | | | | | [place] [address] | | | | + + + [...] EXTERNAL | | | | performed at [facility], [address] | mmol/L | LAB | | | | [address], | | | | | | [place] [address] | | | | + + + + + + | K | 3.8Comment: Testing | 3.5 - 4.9 | EXTERNAL | | | | performed at [facility], [address] | mmol/L | LAB | | | | [address], | | | | | | [place] [address] | | | | + + + + + + | Cl | 109Comment: Testing | 99 - 109 mmol/L | EXTERNAL | | | | performed at [facility], [address] | | LAB | | | | [address], | | | | | | [place] [address] | | | | + + + + + + | CO2 | 22 (L)Comment: Testing | 23 - 32 mmol/L | EXTERNAL | | | | performed at [facility], [address] | | LAB | | | | [address], | | | | | | [place] [address] | | | | + + + + + + | Anion Gap | 9Comment: Testing | 5 - 20 mmol/L | EXTERNAL | | | | performed at [facility], [address] | | LAB | | | | [address], | | | | | | [place] [address] | | | | + + + + + + | Glucose, | 174 (H)Comment: Testing | 65 - 99 mg/dL | EXTERNAL | | | Fasting | performed at [facility], [address] | | LAB | | | | [address], | | | | | | [place] [address] | | | | + + + + + + | BUN | 9Comment: Testing | 8 - 25 mg/dL | EXTERNAL | | | | performed at [facility], [address] | | LAB | | | | [address], | | | | | | [place] [address] | | | | + + + + + + | Creatinine | 0.50 (L)Comment: Testing | 0.70 - 1.30 | EXTERNAL | | | | performed at [facility], [address] | mg/dL | LAB | | | | [address], | | | | | | [place] [address] | | | | + + + + + + | BUN/Creatin | 18Comment: Testing | | EXTERNAL | | | ine Ratio | performed at [facility], [address] | | LAB | | | | [place], | | | | | | [place] [address] | | | | + + + + + + | Calcium | 7.7 (L)Comment: NOTE NEW | 8.5 - 10.5 | EXTERNAL | | | | REFERENCE RANGETesting | mg/dL | LAB | | | | performed at [facility], [address] | | | | | | [place], | | | | | | [place] [address] | | | | + + + [...] | | | | | | at [facility], [address] | | | | | | [place], | | | | | | [place] [address] | | | | + + + [...] EXTERNAL | | | | performed at [facility] | | LAB | | | | [facility];[place], [place] | | | | | | [address] | | | | + + + [...] | | | | | | at [facility];[address] [place] [address] | | | | | | [facility];[place] [address] | | | | + + + [...] EXTERNAL | | | | performed at [facility];[address] | mmol/L | LAB | | | | [address];[place], [place] | | | | | | [address] | | | | + + + [...] Rad Conversion - 05/05/2019 12:20 AM LENARD LEEUR4//[id number] yearsXR | | CHEST 1 VIEW10/13/2014 3:50 [...] EXTERNAL | | | | performed at [facility], [address] | | LAB | | | | [place], | | | | | | [place] [address] | | | | + + + + + + | RED CELL | 2.98 (L)Comment: Testing | 4.20 - 5.70 | EXTERNAL | | | COUNT | performed at [facility], [address] | M/uL | LAB | | | | [address], | | | | | | [place] [address] | | | | + + + + + + | Hgb | 9.7 (L)Comment: Testing | 13.2 - 17.0 | EXTERNAL | | | | performed at [facility], [address] | g/dL | LAB | | | | [place] [address], | | | | | | [place] [address] | | | | + + + + + + | Hematocrit, | 29.8 (L)Comment: Testing | 39.0 - 50.0 % | EXTERNAL | | | POC | performed at [facility], [address] | | LAB | | | | [address], | | | | | | [place] [address] | | | | + + + + + + | MCV | 100.1 (H)Comment: | 80.0 - 100.0 fl | EXTERNAL | | | | Testing performed at | | LAB | | | | [facility], [address] | | | | | | [place] | | | | | | [address] | | | | + + + + + + | MCH | 32.5Comment: Testing | 27.0 - 34.0 pg | EXTERNAL | | | | performed at [facility], [address] | | LAB | | | | [place], | | | | | | [place] [address] | | | | + + + + + + | MCHC | 32.5Comment: Testing | 32.0 - 35.5 | EXTERNAL | | | | performed at [facility], [address] | g/dL | LAB | | | | [address], | | | | | | [place] [address] | | | | + + + + + + | RDW-CV | 60.4 (H)Comment: Testing | 37 - 53 fl | EXTERNAL | | | | performed at [facility], [address] | | LAB | | | | [address], | | | | | | [place] [address] | | | | + + + + + + | Platelet | 107 (L)Comment: Testing | 150 - 400 K/uL | EXTERNAL | | | Count | performed at [facility], [address] | | LAB | | | Plasma | [address], | | | | | | [place] [address] | | | | + + + + + + | MPV | 8.6Comment: Testing | fl | EXTERNAL | | | | performed at [facility], [address] | | LAB | | | | [place], | | | | | | [place] [address] | | | | + + + + + + | Differentia | AUTOMATEDComment: | | EXTERNAL | | | l Type | Testing performed at | | LAB | | | | [facility], [address] | | | | | | [place] | | | | | | [address] | | | | + + + + + + | % Segmented | 78.6Comment: Testing | % | EXTERNAL | | | | performed at [facility], [address] | | LAB | | | Neutrophils | [address], | | | | | | [place] [address] | | | | + + + + + + | % | 9.1Comment: Testing | % | EXTERNAL | | | Lymphocytes | performed at [facility], [address] | | LAB | | | | [address], | | | | | | [place] [address] | | | | + + + + + + | % Monocytes | 11.3Comment: Testing | % | EXTERNAL | | | | performed at [facility], [address] | | LAB | | | | [address], | | | | | | [place] [address] | | | | + + + + + + | % | 0.5Comment: Testing | % | EXTERNAL | | | Eosinophils | performed at [facility], [address] | | LAB | | | | [address], | | | | | | [place] [address] | | | | + + + + + + | % Basophils | 0.5Comment: Testing | % | EXTERNAL | | | | performed at [facility], [address] | | LAB | | | | [address], | | | | | | [place] [address] | | | | + + + + + + | Absolute | 5.6Comment: Testing | 1.9 - 7.4 K/uL | EXTERNAL | | | Segmented | performed at [facility], [address] | | LAB | | | Neutrophils | [address], | | | | | | [place], [place] [address] | | | | + + + + + + | Absolute | 0.6 (L)Comment: Testing | 1.0 - 3.9 K/uL | EXTERNAL | | | Lymphocytes | performed at [facility], [address] | | LAB | | | | [address], | | | | | | [place] [address] | | | | + + + + + + | Absolute | 0.8Comment: Testing | 0 - 0.8 K/uL | EXTERNAL | | | Monocytes | performed at [facility], [address] | | LAB | | | | [address], | | | | | | [place] [address] | | | | + + + + + + | Absolute | 0.0Comment: Testing | 0 - 0.5 K/uL | EXTERNAL | | | Eosinophils | performed at [facility], [address] | | LAB | | | [address], | | | | | | [place] [address] | | | | + + + + + + | Absolute | 0.0Comment: Testing | 0 - 0.1 K/uL | EXTERNAL | | | Basophils | performed at [facility], [address] | | LAB | | | | [address], | | | | | | [place] [address] | | | | + + + [...] | | | | | [place] [address] | | | | + + + + + + | K | 3.4 (L)Comment: Testing | 3.5 - 4.9 | EXTERNAL | | | | performed at [facility], [address] | mmol/L | LAB | | | | [address], | | | | | | [place] [address] | | | | + + + + + + | Cl | 112 (H)Comment: Testing | 99 - 109 mmol/L | EXTERNAL | | | | performed at [facility], [address] | | LAB | | | | [address], | | | | | | [place] [address] | | | | + + + + + + | CO2 | 19 (L)Comment: Testing | 23 - 32 mmol/L | EXTERNAL | | | | performed at [facility], [address] | | LAB | | | | [address], | | | | | | [place] [address] | | | | + + + + + + | Anion Gap | 10Comment: Testing | 5 - 20 mmol/L | EXTERNAL | | | | performed at [facility], [address] | | LAB | | | | [address], | | | | | | [place] [address] | | | | + + + + + + | Glucose, | 133 (H)Comment: Testing | 65 - 99 mg/dL | EXTERNAL | | | Fasting | performed at [facility], [address] | | LAB | | | | [place] [address], | | | | | | [place] [address] | | | | + + + + + + | BUN | 5 (L)Comment: Testing | 8 - 25 mg/dL | EXTERNAL | | | | performed at [facility], [address] | | LAB | | | [address], | | | | | | [place] [address] | | | | + + + + + + | Creatinine | 0.47 (L)Comment: Testing | 0.70 - 1.30 | EXTERNAL | | | | performed at [facility], [address] | mg/dL | LAB | | | | [address], | | | | | | [place] [address] | | | | + + + + + + | BUN/Creatin | 11Comment: Testing | | EXTERNAL | | | ine Ratio | performed at [facility], [address] | | LAB | | | | [place], | | | | | | [place] [address] | | | | + + + + + + | Calcium | 7.8 (L)Comment: NOTE NEW | 8.5 - 10.5 | EXTERNAL | | | | REFERENCE RANGETesting | mg/dL | LAB | | | | performed at [facility], [address] | | | | | | [place], | | | | | | [place] [address] | | | | + + + [...] | | | | | | at [facility], [address] | | | | | | [place], | | | | | | [place] [address] | | | | + + + [...] LAB | | | | performed at [facility];[address] | | | | | | [address];[place], [place] | | | | | | [address] | | | | + + + [...] LAB | | | | performed at [facility] | | | | | | [address];[place], [place] | | | | | | [address] | | | | + + + [...] | | | | | performed at [facility] | | | | | | [address];[place], [place] | | | | | | [address] | | | | + + + [...] EXTERNAL | | | | performed at [facility], [address] | | LAB | | | | [place], | | | | | | [place] [address] | | | | + + + + + + | RED CELL | 3.39 (L)Comment: Testing | 4.20 - 5.70 | EXTERNAL | | | COUNT | performed at [facility], [address] | M/uL | LAB | | | | [address], | | | | | | [place] [address] | | | | + + + + + + | Hgb | 11.1 (L)Comment: Testing | 13.2 - 17.0 | EXTERNAL | | | | performed at [facility], [address] | g/dL | LAB | | | | [address], | | | | | | [place] [address] | | | | + + + + + + | Hematocrit, | 33.5 (L)Comment: Testing | 39.0 - 50.0 % | EXTERNAL | | | POC | performed at [facility], [address] | | LAB | | | | [address], | | | | | | [place] [address] | | | | + + + + + + | MCV | 98.6Comment: Testing | 80.0 - 100.0 fl | EXTERNAL | | | | performed at [facility], [address] | | LAB | | | | [address], | | | | | | [place] [address] | | | | + + + + + + | MCH | 32.7Comment: Testing | 27.0 - 34.0 pg | EXTERNAL | | | | performed at [facility], [address] | | LAB | | | | [address], | | | | | | [place] [address] | | | | + + + + + + | MCHC | 33.1Comment: Testing | 32.0 - 35.5 | EXTERNAL | | | | performed at [facility], [address] | g/dL | LAB | | | | [address], | | | | | | [place] [address] | | | | + + + + + + | RDW-CV | 59.5 (H)Comment: Testing | 37 - 53 fl | EXTERNAL | | | | performed at [facility], [address] | | LAB | | | | [address], | | | | | | [place] [address] | | | | + + + + + + | Platelet | 138 (L)Comment: Testing | 150 - 400 K/uL | EXTERNAL | | | Count | performed at [facility], [address] | | LAB | | | Plasma | [address], | | | | | | [place] [address] | | | | + + + + + + | MPV | 8.4Comment: Testing | fl | EXTERNAL | | | | performed at [facility], [address] | | LAB | | | | [address], | | | | | | [place] [address] | | | | + + + + + + | Differentia | AUTOMATEDComment: | | EXTERNAL | | | l Type | Testing performed at | | LAB | | | | [facility], [address] | | | | | | [place] | | | | | | [address] | | | | + + + + + + | % Segmented | 79.3Comment: Testing | % | EXTERNAL | | | | performed at [facility], [address] | | LAB | | | Neutrophils | [address], | | | | | | [place] [address] | | | | + + + + + + | % | 7.8Comment: Testing | % | EXTERNAL | | | Lymphocytes | performed at [facility], [address] | | LAB | | | | [address], | | | | | | [place] [address] | | | | + + + + + + | % Monocytes | 12.1Comment: Testing | % | EXTERNAL | | | | performed at [facility], [address] | | LAB | | | [address], | | | | | | [place] [address] | | | | + + + + + + | % | 0.3Comment: Testing | % | EXTERNAL | | | Eosinophils | performed at [facility], [address] | | LAB | | | | [address], | | | | | | [place] [address] | | | | + + + + + + | % Basophils | 0.5Comment: Testing | % | EXTERNAL | | | | performed at [facility], [address] | | LAB | | | | [address], | | | | | | [place] [address] | | | | + + + + + + | Absolute | 7.2Comment: Testing | 1.9 - 7.4 K/uL | EXTERNAL | | | Segmented | performed at [facility], [address] | | LAB | | | Neutrophils | [address], | | | | | | [place] [address] | | | | + + + + + + | Absolute | 0.7 (L)Comment: Testing | 1.0 - 3.9 K/uL | EXTERNAL | | | Lymphocytes | performed at [facility], [address] | | LAB | | | | [address], | | | | | | [place] [address] | | | | + + + + + + | Absolute | 1.1 (H)Comment: Testing | 0 - 0.8 K/uL | EXTERNAL | | | Monocytes | performed at [facility], [address] | | LAB | | | | [address], | | | | | | [place] [address] | | | | + + + + + + | Absolute | 0.0Comment: Testing | 0 - 0.5 K/uL | EXTERNAL | | | Eosinophils | performed at [facility], [address] | | LAB | | | | [address], | | | | | | [place] [address] | | | | + + + + + + | Absolute | 0.0Comment: Testing | 0 - 0.1 K/uL | EXTERNAL | | | Basophils | performed at [facility], [address] | | LAB | | | | [address], | | | | | | [place] [address] | | | | + + + [...] EXTERNAL | | | | performed at [facility], [address] | | LAB | | | | [address], | | | | | | [place] [address] | | | | + + + [...] | | | | | [place] [address] | | | | + + + + + + | K | 2.8 (L)Comment: Testing | 3.5 - 4.9 | EXTERNAL | | | | performed at [facility], [address] | mmol/L | LAB | | | | [address], | | | | | | [place] [address] | | | | + + + + + + | Cl | 105Comment: Testing | 99 - 109 mmol/L | EXTERNAL | | | | performed at [facility], [address] | | LAB | | | | [address], | | | | | | [place] [address] | | | | + + + + + + | CO2 | 23Comment: Testing | 23 - 32 mmol/L | EXTERNAL | | | | performed at [facility], [address] | | LAB | | | | [address], | | | | | | [place] [address] | | | | + + + + + + | Anion Gap | 9Comment: Testing | 5 - 20 mmol/L | EXTERNAL | | | | performed at [facility], [address] | | LAB | | | | [address], | | | | | | [place] [address] | | | | + + + + + + | Glucose, | 163 (H)Comment: Testing | 65 - 99 mg/dL | EXTERNAL | | | Fasting | performed at [facility], [address] | | LAB | | | | [address], | | | | | | [place] [address] | | | | + + + + + + | BUN | 7 (L)Comment: Testing | 8 - 25 mg/dL | EXTERNAL | | | | performed at [facility], [address] | | LAB | | | | [address], | | | | | | [place] [address] | | | | + + + + + + | Creatinine | 0.57 (L)Comment: Testing | 0.70 - 1.30 | EXTERNAL | | | | performed at [facility], [address] | mg/dL | LAB | | | | [address], | | | | | | [place] [address] | | | | + + + + + + | BUN/Creatin | 12Comment: Testing | | EXTERNAL | | | ine Ratio | performed at [facility], [address] | | LAB | | | | [address], | | | | | | [place] [address] | | | | + + + + + + | Calcium | 7.8 (L)Comment: NOTE NEW | 8.5 - 10.5 | EXTERNAL | | | | REFERENCE RANGETesting | mg/dL | LAB | | | | performed at [facility], [address] | | | | | | [address], | | | | | | [place] [address] | | | | + + + [...] [address], | | | | | | [place] [address] | | | | + + + [...] EXTERNAL | | | | performed at [facility];[address] | | LAB | | | | [address];[place] | | | | | | [address] | | | | + + + + + + | RED CELL | 3.63 (L)Comment: Testing | 4.20 - 5.70 | EXTERNAL | | | COUNT | performed at [facility];[address] | M/uL | LAB | | | | [address];[place] | | | | | | [address] | | | | + + + + + + | Hgb | 10.9 (L)Comment: Testing | 13.2 - 17.0 | EXTERNAL | | | | performed at [facility];[address] | g/dL | LAB | | | | [address];[place] | | | | | | [address] | | | | + + + + + + | Hematocrit, | 34.9 (L)Comment: Testing | 39.0 - 50.0 % | EXTERNAL | | | POC | performed at [facility];[address] | | LAB | | | | [address];[place] | | | | | | [address] | | | | + + + + + + | MCV | 96.2Comment: Testing | 80.0 - 100.0 fl | EXTERNAL | | | | performed at [facility];[address] | | LAB | | | | [address];[place] | | | | | | [address] | | | | + + + + + + | MCH | 30.0Comment: Testing | 27.0 - 34.0 pg | EXTERNAL | | | | performed at [facility];[address] | | LAB | | | | [address];[place] | | | | | | [address] | | | | + + + + + + | MCHC | 31.2 (L)Comment: Testing | 32.0 - 35.5 | EXTERNAL | | | | performed at [facility];[address] | g/dL | LAB | | | | [address];[place] | | | | | | [address] | | | | + + + + + + | RDW-CV | 58.6 (H)Comment: Testing | 37 - 53 fl | EXTERNAL | | | | performed at [facility];[address] | | LAB | | | | [address];[place] | | | | | | [address] | | | | + + + + + + | Platelet | 164Comment: Testing | 150 - 400 K/uL | EXTERNAL | | | Count | performed at [facility];[address] | | LAB | | | Plasma | [address];[place] | | | | | | [address] | | | | + + + + + + | MPV | 7.8Comment: Testing | fl | EXTERNAL | | | | performed at [facility];[address] | | LAB | | | | [address];[place] | | | | | | [address] | | | | + + + + + + | Differentia | AUTOMATEDComment: | | EXTERNAL | | | l Type | Testing performed at | | LAB | | | | [facility];[address];[place] [address] | | | | + + + + + + | % Segmented | 72.3Comment: Testing | % | EXTERNAL | | | | performed at [facility];[address] | | LAB | | | Neutrophils | [address];[place] | | | | | | [address] | | | | + + + + + + | % | 13.2Comment: Testing | % | EXTERNAL | | | Lymphocytes | performed at [facility];[address] | | LAB | | | | [address];[place] | | | | | | [address] | | | | + + + + + + | % Monocytes | 13.4Comment: Testing | % | EXTERNAL | | | | performed at [facility] | | LAB | | | | [address];[place] | | | | | | [address] | | | | + + + + + + | % | 0.3Comment: Testing | % | EXTERNAL | | | Eosinophils | performed at [facility] [place] | | LAB | | | | [address];[place] | | | | | | [address] | | | | + + + + + + | % Basophils | 0.8Comment: Testing | % | EXTERNAL | | | | performed at [facility] [place] | | LAB | | | | [address];[place] | | | | | | [address] | | | | + + + + + + | Absolute | 7.0Comment: Testing | 1.9 - 7.4 K/uL | EXTERNAL | | | Segmented | performed at [facility] [place] | | LAB | | | Neutrophils | [address];[place] | | | | | | [address] | | | | + + + + + + | Absolute | 1.3Comment: Testing | 1.0 - 3.9 K/uL | EXTERNAL | | | Lymphocytes | performed at [facility] [place] | | LAB | | | | [address];[place] | | | | | | [address] | | | | + + + + + + | Absolute | 1.3 (H)Comment: Testing | 0 - 0.8 K/uL | EXTERNAL | | | Monocytes | performed at [facility] [place] | | LAB | | | | [address];[place] | | | | | | [address] | | | | + + + + + + | Absolute | 0.0Comment: Testing | 0 - 0.5 K/uL | EXTERNAL | | | Eosinophils | performed at [facility] [place];[address] | | LAB | | | | [address];[place] | | | | | | [address] | | | | + + + + + + | Absolute | 0.1Comment: Testing | 0 - 0.1 K/uL | EXTERNAL | | | Basophils | performed at [facility] | | LAB | | | | [address];[place] | | | | | | [address] | | | | + + + [...] EXTERNAL LAB | | Testing performed at [facility];[address] [place] [address];[place] [address] MRSA PCR | | | NEGATIVE Testing performed at | | | [address];[place] [address] | | + + + + +---------+ [...] REMY | | | Testing performed at [facility], [address], [place] | | | [address] | | + + + + +---------+ [...] EXTERNAL | | | | performed at [facility];[address] | | LAB | | | | [address];[place] | | | | | | [address] | | | | + + + [...] EXTERNAL | | | | performed at [facility] | | LAB | | | | [facility];[place], [place] | | | | | | [address] | | | | + + + [...] | | | Total | performed at [facility];[address] | | LAB | | | | [address];[place], [place] | | | | | | [address] | | | | + + + + + + | Albumin | 2.8 (L)Comment: Testing | 3.6 - 5.0 g/dL | EXTERNAL | | | | performed at [facility] [place];[address] | | LAB | | | | [address];[place] | | | | | | [address] | | | | + + + + + + | Bilirubin | 1.6 (H)Comment: Testing | 0.1 - 1.5 mg/dL | EXTERNAL | | | Total | performed at [facility] [place];[address] | | LAB | | | | [address];[place] | | | | | | [address] | | | | + + + + + + | Bilirubin | 0.6 (H)Comment: Testing | 0.0 - 0.3 mg/dL | EXTERNAL | | | Direct | performed at [facility];[address] | | LAB | | | | [address];[place] | | | | | | [address] | | | | + + + + + + | ALP, | 138 (H)Comment: Testing | 35 - 115 U/L | EXTERNAL | | | External | performed at [facility] | | LAB | | | | [address];[place] | | | | | | [address] | | | | + + + + + + | AST | 61 (H)Comment: Testing | 10 - 45 U/L | EXTERNAL | | | | performed at [facility] | | LAB | | | | [address];[place] | | | | | | [address] | | | | + + + + + + | ALT | 54Comment: Testing | 10 - 65 U/L | EXTERNAL | | | | performed at [facility];[address] | | LAB | | | | [address];[place] | | | | | | [address] | | | | + + + [...] 11 October 2014. | | | FINDINGS: Gas Regulator Repairer is unremarkable. The patient is post interval [...] examination: 11 October 2014. | | FINDINGS: Gas Regulator Repairer is unremarkable. The patient is post interval [...] EXTERNAL | | | | performed at [facility];888 | mmol/L | LAB | | | | [address];[place], [place] | | | | | | [address] | | | | + + + + + + | K | 2.7 (LL)Comment: RESULT | 3.5 - 4.9 | EXTERNAL | | | | READ BACK BY:TAYA Price IN [place] | mmol/L | LAB | | | | AT 2012 BY FANNY ON | | | | | | [id number] performed | | | | | | at [facility];[address];[place] [address] | | | | + + + + + + | Cl | 102Comment: Testing | 99 - 109 mmol/L | EXTERNAL | | | | performed at [facility];[address] | | LAB | | | | [address];[place] | | | | | | [address] | | | | + + + + + + | CO2 | 25Comment: Testing | 23 - 32 mmol/L | EXTERNAL | | | | performed at [facility];[address] | | LAB | | | | [address];[place] | | | | | | [address] | | | | + + + + + + | Anion Gap | 14Comment: Testing | 5 - 20 mmol/L | EXTERNAL | | | | performed at [facility];[address] | | LAB | | | | [address];[place] | | | | | | [address] | | | | + + + + + + | Glucose, | 143 (H)Comment: Testing | 65 - 99 mg/dL | EXTERNAL | | | Fasting | performed at [facility];[address] | | LAB | | | | [address];[place] | | | | | | [address] | | | | + + + + + + | BUN | 7 (L)Comment: Testing | 8 - 25 mg/dL | EXTERNAL | | | | performed at [facility];[address] | | LAB | | | | [address];[place] | | | | | | [address] | | | | + + + + + + | Creatinine | 0.68 (L)Comment: Testing | 0.70 - 1.30 | EXTERNAL | | | | performed at [facility];[address] | mg/dL | LAB | | | | [address];[place] | | | | | | [address] | | | | + + + + + + | BUN/Creatin | 10Comment: Testing | | EXTERNAL | | | ine Ratio | performed at [facility];[address] | | LAB | | | | [address];[place] | | | | | | [address] | | | | + + + + + + | Calcium | 7.3 (L)Comment: NOTE NEW | 8.5 - 10.5 | EXTERNAL | | | | REFERENCE RANGETesting | mg/dL | LAB | | | | performed at [facility];[address] | | | | | | [address];[place] | | | | | | [address] | | | | + + + [...] | | | | | | at [facility];[address];[place] [address] | | | | + + + [...] | | LAB | | | | [facility];[address];[place] [address] | | | | + + + + + + | PCO2 ART | 33 (L)Comment: Testing | 35 - 45 mmHg | EXTERNAL | | | | performed at [facility];[address] | | LAB | | | | [address];[place] | | | | | | [address] | | | | + + + + + + | PO2 ART | 225 (H)Comment: Testing | 80 - 105 mmHg | EXTERNAL | | | | performed at [facility];[address] | | LAB | | | | [address];[place] | | | | | | [address] | | | | + + + + + + | HCO3 ART | 28 (H)Comment: Testing | 22 - 26 mmol/L | EXTERNAL | | | | performed at [facility];[address] | | LAB | | | | [address];[place] | | | | | | [address] | | | | + + + + + + | POC | 29 (H)Comment: Testing | 23 - 27 mEq/L | EXTERNAL | | | APPEARANCE | performed at [facility];[address] | | LAB | | | UA | [address];[place] | | | | | | [address] | | | | + + + + + + | Base | 6 (H)Comment: Testing | 0 - 3 mEq/L | EXTERNAL | | | Excess, | performed at [facility];[address] | | LAB | | | Arterial | [address];[place] | | | | | | [address] | | | | + + + + + + | O2 SAT ART | 100 (H)Comment: Testing | 95 - 98 % | EXTERNAL | | | | performed at [facility];[address] | | LAB | | | | [address];[place] | | | | | | [address] | | | | + + + + + + | Sodium, POC | 138Comment: Testing | 135 - 145 mEq/L | EXTERNAL | | | | performed at [facility];[address] | | LAB | | | | [address];[place] | | | | | | [address] | | | | + + + + + + | Potassium, | 2.6 (LL)Comment: Testing | 3.5 - 5.0 mEq/L | EXTERNAL | | | POC | performed at [facility];[address] | | LAB | | | | [address];[place] | | | | | | [address] | | | | + + + + + + | Ionized | 0.98 (L)Comment: Testing | 1.12 - 1.32 | EXTERNAL | | | Calcium, | performed at [facility];888 | mmol/L | LAB | | | POC | [address];[place] | | | | | | [address] | | | | + + + + + + | Glucose, | 146 (H)Comment: Testing | 65 - 99 mg/dL | EXTERNAL | | | POC | performed at [facility];[address] | | LAB | | | | [address];[place] | | | | | | [address] | | | | + + + + + + | Hematocrit, | 35 (L)Comment: Testing | 40.0 - 50.0 % | EXTERNAL | | | POC | performed at [facility];[address] | | LAB | | | | [address];[place] | | | | | | [address] | | | | + + + + + + | Hemoglobin, | 11.9 (L)Comment: Testing | 13.7 - 16.7 | EXTERNAL | | | POC | performed at [facility];888 | g/dL | LAB | | | | [address];[place] | | | | | | [address] | | | | + + + [...] of fall | + + | Seizure ([facility]) Other convulsions | + + | Alcohol withdrawal ([facility]) Alcohol withdrawal | + + | Cerebral edema ([facility]) Cerebral edema | + + | Subdural hematoma, post-traumatic, sequela | + + | Traumatic brain injury, closed, sequela | + + documented in this encounter
--- OUTSIDE RECORDS SUMMARY | ~2019-09-09 | XMS | Encounter Summary ---
Demographics + + + | Address | [address] | | | [place] [address] | + + + | Home Phone | | + + + | Preferred Language | Unknown | + + + | Marital Status | Single | + + + | Synagogue Affiliation | Unknown | + + + | Race | White | + + + | Ethnic Group | Not or | + + + Author + + + | Author | [facility] | + + + | Organization | [facility] | + + + | [...] Team Providers + +------+ + | Care Fruit Dumper Name | Role | Phone | + [...] | | | | [address] [place], | [place], [place] | | | | | [place] [address] | [address] | | | | | [phone] | | | +--------+ + + + [...]
--- OUTSIDE RECORDS SUMMARY | ~2019-09-09 | XMS | Encounter Summary ---
Demographics + + + | Address | [address] | | | [place] [address] | + + + | Home Phone | | + + + | Preferred Language | Unknown | + + + | Marital Status | Single | + + + | Alevism Affiliation | Unknown | + + + | Race | White | + + + | Ethnic Group | Not or | + + + Author + + + | Author | [facility] | + + + | Organization | [facility] | + + + | [...] Team Providers + +------+ + | Care Substance Abuse Services Director Name | Role | Phone | + +------+ + PCP | Unavailable | + +------+ + Encounter Details +--------+ + + + + | Date | Type | Department | Care Team | Description | +--------+ + + + + | 03/25/ | Abstract | [facility] | Azeem Dietrich | | | 2010 | | [place] [address] [address] | | | | | [address] | [place], [place] | | | | | Mailcode: OC8D | [address] | | | | | [facility] | [phone] | | | | | and [address], | | | | | | [address] | | | | | | [place], [place] | | | | | | [address] | | | | | | [phone] | | | +--------+ + + + [...]
--- OUTSIDE RECORDS SUMMARY | ~2019-09-09 | XMS | Encounter Summary ---
Demographics + + + | Address | [address] | | | [place] [address] | + + + | Home Phone | | + + + | Preferred Language | Unknown | + + + | Marital Status | Single | + + + | Bahai Affiliation | Unknown | + + + [...] Team Providers + +------+ + | Care Childcare Teacher Name | Role | Phone | [...] | 2009 | on | Center at [facility] [address] | [address] | ([place] 05/30/2010 no | | | | [address] | [address] [place], [place] | HCC) | | | | Mailcode: OCD | [address] | | | | | [facility] | [phone] | | | | | and Healing, | | | | | | [address] | | | | | | [place], [place] | | | | | | [address] | | | | | | [phone] | | | +--------+ + + + [...]
--- OUTSIDE RECORDS SUMMARY | ~2019-09-09 | XMS | Encounter Summary ---
Demographics + + + | Address | [address] | | | [place] [address] | + + + | Home Phone | | + + + | Preferred Language | Unknown | + + + | Marital Status | | + + + | Samaritan Affiliation | Unknown | + + + | Race | Unknown | + + + | Ethnic Group | Unknown | + + + Author + + + | Author | [facility] | | | and [place] | + + + | Organization | [facility] | | | [...] Team Providers + +------+ + | Care Illuminating Engineer Name | Role | Phone | + +------+ + PCP | Unavailable | + +------+ + Encounter Details +--------+ + + + + | Date | Type | Department | Care Team | Description | +--------+ + + + + | 11/12/ | Hospital | [facility] | Rodo Draper, | | | 2008 - | Encounter | MED CTR [address] | [address] [facility] | | | | | [place], | [place], [place] | | | 11/17/ | | [place] [address] | [address] | | | 2008 | | [phone] | [phone] | | | | | | | [...]
--- OUTSIDE RECORDS SUMMARY | ~2019-09-09 | XMS | Encounter Summary ---
Demographics + + + | Address | [address] | | | [place] [address] | + + + | Home Phone | | + + + | Preferred Language | Unknown | + + + | Marital Status | | + + + | Bahai Affiliation [...] Team Providers + +------+ + | Care Grain Scooper Name | Role | Phone | + +------+ + PCP | Unavailable | + +------+ + Encounter Details +--------+ + + + + | Date | Type | Department | Care Team | Description | +--------+ + + + + | 05/24/ | Hospital | [facility] | Conversion | Pain | | 2015 | Encounter | CONVERSION [address] | Transaction, | | | | | [address] | Provider Unknown | | | | | [place], [place] | [phone] | | | | | [address] | | | | | | [phone] | | | +--------+ + + + [...]
--- OUTSIDE RECORDS SUMMARY | ~2019-09-09 | XMS | Clinical Summary ---
Demographics + + + | Address | [address] | | | [place] [address] | + + + | Home Phone | | + + + | Preferred Language | Unknown | + + + | Marital Status | | + + + | Christianity Affiliation | Unknown | + + + | Race | Unknown | + + + | Ethnic Group | Unknown | + + + Author + + + | Author | [facility] (Historical as of | | | 05-06-19) | + + + | Organization | [facility] (Historical as of | | | 05-06-19) | + + + | Address | Unknown | + + + | Phone | Unavailable | + + + Support + + + + + | Name | Relationship | Address | Phone | + + + + + | Jay Jay Fortune | ECON | [address] | | | | | [place] | | | | | [address] | | + + + + + | Teressa Fortune | ECON | [place] | | | | | [address] | | + + + + + Care Team Providers + +------+ + | Care Manager University Name | Role | Phone | + [...] | | [employer] | | 01/18/ | [id number] | | [id number]: Qty: 1 on | | | | | 2016 | / | | 10/11/2014 by Arlette, | | | | | | /[id number] | | Anthony HENRIQUEZ MD | | | | | | 21 | + +------+--------+ +--------+--------+--------+ | Algrft Dura Durgn Mtrx 3x3 | | Right: | [employer] | | 08/27/ | ID-330 | | Bx5 - [id number]: Qty: | | Brain | NEUROSCIENC | | 2016 | 5 / | | 1 on 05/28/2015 by Earl, | | | FRANCK - INNE | | | /[id number] | | Gloria Baumann MD | | | | | | 52 | + +------+--------+ +--------+--------+--------+ | Mesh Grid Hcd 11x7.5 | | Right: | [employer] - | | | 015-20 | | - - | | Brain | MEDT | | | - / | | [id number]: Qty: 1 on | | | | | | / | | 05/28/2015 by Gloria Elliott | | | | | | | | L, MD | | | | | | | + +------+--------+ +--------+--------+--------+ | Plate Dbl Y 3h 5mm - | | Right: | [employer] - | | | 015-23 | | [id number]: Qty: 2 on | | Brain | MEDT | | | 7 / | | 05/28/2015 by Gloria Elliott | | | | | | /[id number] | | L, MD | | | | | | 98 | + +------+--------+ +--------+--------+--------+ | Screw S/Tap 1.6x4.0 - | | Right: | [employer] - | | | [id number] | | [id number]: Qty: 14 on | | Brain | MEDT | | | 0 / / | | 05/28/2015 by Gloria Elliott | | | | | | | | L, MD | | | | | | | + +------+--------+ +--------+--------+--------+ | Plate Dogbone 8mm - | | Right: | [employer] - | | | 015-04 | | [id number]: Qty: 1 on | | Brain | MEDT | | | 2 / | | 05/28/2015 by Gloria Elliott | | | | | | /[id number] | | MD Ibis | | | | | | 59 | + +------+--------+ +--------+--------+--------+ | Screw S/Tap 1.6x4.0 - | | | [employer] - | | | [id number] | | [id number]: Qty: 8 on | | | MEDT | | | 0 | | 05/29/2015 by Gloria Elliott | | | | | | /[id number] | | MD Ibis | | | | | | 40 / | + +------+--------+ +--------+--------+--------+ | Algrft Dura Durgn Mtrx 3x3 | | | [employer] | | 08/20/ | ID-330 | | Bx5 - [id number]: Qty: | | | NEUROSCIENC | | 2016 | 5 | | 1 on 05/29/2015 by Earl, | | | FRANCK - MALIKA | | | /[id number] | | Gloria Baumann MD | | | | | | 5 | | | | | | | | /[id number] | | | | | | | [...] +------+-------+ + | MEDICAID | MEDICA | [id number] | | | [address] | | | ID | | | | [place], [place] | | | [place] | | | | [address] | + +--------+ +------+-------+ + | [employer] | YELLOW | [id number] | | | | | PLANS | [...] | Self [birth year] | Home: | [address] | | | al/Fam | | 1961 | [phone] | [place], | | | [place]yan | | | [address] | [place] [address] | + +--------+ +--------+ + +
--- OUTSIDE RECORDS SUMMARY | ~2019-09-09 | XMS | Encounter Summary ---
Demographics + + + | Address | [address] | | | [place] [address] | + + + | Home Phone | | + + + | Preferred Language | Unknown | + + + | Marital Status | | + + + | Confucianist Affiliation | Unknown | + + + | Race | Unknown | + + + | Ethnic Group | Unknown | + + + Author + + + | Author | [facility] | | | and [place] | + + + | Organization | [facility] | | [...] Team Providers + +------+ + | Care Ceramic Artist Name | Role | Phone | + +------+ + PCP | Unavailable | + +------+ + Encounter Details +--------+ + + + + | Date | Type | Department | Care Team | Description | +--------+ + + + + | 11/22/ | Hospital | [facility] | Conversion | Headache(784.0) | | 2015 | Encounter | CONVERSION [address] | Transaction, | | | | | [address] | Provider Unknown | | | | | [place], [place] | | | | | | [address] | (Fax) | | | | | [phone] | | | +--------+ + + + [...]
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
--- OUTSIDE RECORDS SUMMARY | ~2019-09-09 | XMS | Encounter Summary ---
Demographics + + + | Address | [address] | | | [place] [address] | + + + | Home Phone | | + + + | Preferred Language | Unknown | + + + | Marital Status | | + + + | Restoration Affiliation | Unknown | + + + | Race | Unknown | + + + | Ethnic Group | Unknown | + + + Author + + + | Author | [facility] | | | and Olegarioana | + + + | Organization | [facility] | | | [...] Team Providers + +------+ + | Care Clerk Checker Name | Role | Phone | + +------+ + PCP | Unavailable | + +------+ + Encounter Details +--------+ + + + + | Date | Type | Department | Care Team | Description | +--------+ + + + + | 11/22/ | Hospital | [facility] | Conversion | Headache(784.0) | | 2015 | Encounter | CONVERSION [address] | Transaction, | | | | | [address] | Provider Unknown | | | | | [place], [place] | | | | | | [address] | (Fax) | | | | | [phone] | | | +--------+ + + + [...]
--- OUTSIDE RECORDS SUMMARY | ~2019-09-09 | XMS | Encounter Summary ---
Demographics + + + | Address | [address] | | | [place] [address] | + + + | Home Phone [...] + + + | Author | [facility] | + + + | Organization | [facility] | + + + | Address [...] Team Providers + +------+ + | Care Information Security Analyst Name | Role | Phone | [...] | 2009 | on | Center at [facility] [address] | ([place] 05/30/2010 no | | | | [address] | [address] [place], [place] | HCC) | | | | Mailcode: OCD | [id number] | | | | | [facility] | [phone] | | | | | and Healing, | | | | | | [address] | | | | | | [place], [place] | | | | | | [address] | | | | | | [phone] | | | +--------+ + + + [...]
--- OUTSIDE RECORDS SUMMARY | ~2019-09-09 | XMS | Encounter Summary ---
Demographics + + + | Address | [address] | | | [place] [address] | + + + | Home Phone | | + + + | Preferred Language | Unknown | + + + | Marital Status | | + + + | Temple Affiliation | Unknown | + + + | Race | Unknown | + + + | Ethnic Group | Unknown | + + + Author + + + | Author | [facility] | | | and Olegarioana | + + + | Organization | [facility] | | [...] Team Providers + +------+ + | Care Inside Tester Name | Role | Phone | + +------+ + PCP | Unavailable | + +------+ + Encounter Details +--------+ + + + + | Date | Type | Department | Care Team | Description | +--------+ + + + + | 10/11/ | Hospital | [facility] | Conversion | Headache(784.0) | | 2015 | Encounter | CONVERSION [address] | Transaction, | | | | | [address] | Provider Unknown | | | | | [place], [place] | [phone] | | | | | [address] | | | | | | [phone] | | | +--------+ + + + [...]
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
--- OUTSIDE RECORDS SUMMARY | ~2019-09-09 | XMS | Encounter Summary ---
Demographics + + + | Address | [address] | | | [place] [address] | + + + | Home Phone | | + + + | Preferred Language | Unknown | + + + | Marital Status | Single | + + + | Sikh Affiliation | Unknown | + + + [...] Team Providers + +------+ + | Care Criminal Justice Professor Name | Role | Phone | + [...] | | | | [place], | [place], [place] | | | | | [place] [address] | [address] | | | | | [phone] | | | +--------+ + + + [...]
--- OUTSIDE RECORDS SUMMARY | ~2019-09-09 | XMS | Encounter Summary ---
Demographics + + + | Address | [address] | | | [place] [address] | + + + | Home Phone | | + + + | Preferred Language | Unknown | + + + | Marital Status | Single | + + + | Muslim Affiliation [...] Team Providers + +------+ + | Care Art Education Professor Name | Role | Phone | + +------+ + PCP | Unavailable | + +------+ + Encounter Details +--------+ + + + + | Date | Type | Department | Care Team | Description | +--------+ + + + + | 02/17/ | Results | [facility] | Wade Villalta MD | | | 2002 | Only | & Rehabilitation | [address] [facility] | | | | | [address] [facility] | [address] | | | | | Mailcode: PV430 | [place], [place] | | | | | Brian | [address] | | | | | [place], [place] | [phone] | | | | | [address] | | | | | | [phone] | | | +--------+ + + + [...] | | + +---------+ + + | [facility] DEPARTMENT OF | | | | | RADIOLOGY | | | | + +---------+ + + documented in this encounter Visit Diagnoses Not on filedocumented in this encounter"
--- OUTSIDE RECORDS SUMMARY | ~2019-09-09 | XMS | Encounter Summary ---
Demographics + + + | Address | [address] | | | [place] [address] | + + + | Home Phone | | + + + | Preferred Language | Unknown | + + + | Marital Status | | + + + | Taoism Affiliation | Unknown | + + + | Race | Unknown | + + + | Ethnic Group | Unknown | + + + Author + + + | Author | [facility] | | | and Olegario[place] | + + + | Organization | [facility] | | | [...] Team Providers + +------+ + | Care Maintenance Technician 2Nd Shift Name | Role | Phone | + [...] + + + + | 08/09/ | Hospital | [facility] | BeyRamiro stoll, | Alcoholism (HCC) | | 2015 - | Encounter | [facility] | [address] | (Primary Dx); | | | | [address] | [place] | Hypokalemia; | | 08/14/ | | [place], [place] [address] | [address] | Pyelonephritis; | | 2014 | | [phone] | [phone] | Sepsis, due to | | | | | | unspecified organism | | | | | | ([facility]); Falls, | | | | | | subsequent | | | | | | encounter; Sepsis, | | | | | | Gram negative ([facility]); | | | | | | Sepsis due to | | | | | | Escherichia coli (E. | | | | | | coli) ([facility]) | +--------+ + + + [...] West MD - 08/14/2015 10:35 AM PST [facility] DISCHARGE SUMMARY Pt. Name/Age/: Tony Ring Princess [...] complete 14-day total course of therapy at [facility]. Vital signs, physical examination, and laboratory values were within appropriate limits at time of discharge. Patient discharged to SNF ([facility] in [place], [place]). Labs admission/discharge days: WBC 12.2 -> [...] He denies any other problems. Plans in [facility] for discharge back to [facility] today. Patient denies headache, fever, chills, nausea, [...] 2 weeks. Specialty: Family Medicine Contact information: [address] [place] [address] Condition: Patient being discharged with condition improved. Diet: Regular Activity: as tolerated, but up with assistance only (high fall risk) Greater than 30 minutes were spent on discharge and coordination of post-hospital care. Electronically signed by: Marco Antonio West MD, 08/14/2015 10:35 [facility] documented in thi s encounter Discharge Instructions Instructions Marco Antonio West MD - 08/14/2015Regular diet. Activity as tolerated. Up with assistance only (high fall risk). Follow-up with PCP Mason Oliveira DO in 2 weeks. AttachmentsThe following attachments cannot be sent through Care Everywhere.PERIPHERALLY IN SERTED CENTRAL CATHETER (PICC), DISCHARGE INSTRUCTIONS FOR CARING FOR YOUR (BERMUDIAN)document ed in this encounter Medications at Time [...] Brunson MD - 08/13/2015 4:59 PM PST [facility] PROGRESS NOTE Patient: Tony Sánchez : 1960: Age: 54 y.o. MedRec: [id number] Admission date: 08/09/2015 Hospital day # : [...] CKTOTAL No results for input(s): PHART, PO2ART, VSM4XEB, QKQ4FDC, BEART, Z8KRAWNG in the last 168 h ours. Point [...] stable 8) Dispo - likely back to [place] 08/14 if they can accept back Marco Antonio West MD 08/13/2015 16:59 [facility] asch, Nae Baumann MD - 08/12/2015 1:29 PM PST [facility] HOSPITALIST PROGRESS NOTE PATIENT NAME: Tony Sánchez AGE: 54 y.o. DATE OF SERVICE: 08/12/2015 SUBJECTIVE: No new concerns. Called [facility], set up fax of results 08/11 final [...] this chart may have been created using [employer] voice recognition software. Occas ional wrong-word or "sound alike" substitutions may have occurred due to the inherent limita tions of voice recognition software. Please read chart carefully and recognize using context where these substitutions have occurred.Electronically signed by Nae Lala MD at 1:32 PM PSTRasch, Nae Baumann MD - 08/11/2015 4:25 PM PSTFormatting of this note mi ght be different from the original. [facility] HOSPITALIST PROGRESS NOTE PATIENT NAME: Tony Sánchez [...] display. Plan: continue empiric antibiotics, call from [facility] with blood cx + gram neg josefina. aw aiting final for treatment plan and discharge planning DATE/TIME: 08/11/2015 16:25 SIGNED: Nae Lala MD Portions of this chart may have been created using [employer] voice recognition software. Occas ional wrong-word or [...] mi ght be different from the original. [facility] HOSPITALIST PROGRESS NOTE PATIENT NAME: Tony Sánchez [...] display. Plan: continue empiric antibiotics, call from [facility] with blood cx + gram neg josefina. DATE/TIME: 08/10/2015 15:00 SIGNED: Nae Lala MD Portions of this chart may have been created using [employer] voice recognition software. Occas ional wrong-word or "sound alike" substitutions may have occurred due to the inherent limita tions of voice recognition software. Please read chart carefully and recognize using context where these substitutions have occurred.Electronically signed by Nae Lala MD at 3:02 PM PSTdocumented in this encounter Plan of Treatment Not [...] ST. | [address] | [place] | [phone] | | [facility] | | [address] | | | - LABORATORY | | | | + + + + + Magnesium (08/14/2015 6:17 AM PST) + +---------+ + + + | Component | Value | Ref Range | Performed | Pathologist | | | | | At | Signature | + +---------+ + + + | Magnesium | 1.6 (L) | 1.8 - 2.5 mg/dL | [facility] | | | | [...] [address] | [place] | [phone] | | [facility] | | [address] | | | - LABORATORY | | [...] 98 | 70 - 109 mg/dL | [facility] [...] | | | | mg/dL | [facility] | | | | | | MEDICAL | | | | | | CENTER - | | | | | | LABORATORY | | + + + + + + | eGFR if not | >60 | >=60 | [facility] | | | | | mL/min/1.73m2 | [facility] | | | [facility] | | | MEDICAL | | | [...] + | [facility] | [address] | [place] | [phone] | | [facility] | | [address] | | | - LABORATORY | | [...] [address] | [place] | [phone] | | [facility] | | [address] | | | - LABORATORY | | [...] | samples are screened | uIU/mL | [facility] | | | | using a 2nd [...] [address] | [place] | [phone] | | [facility] | | [address] | | | - LABORATORY | | | | + + + + + Ammonia (08/13/2015 11:55 AM PST) + +--------+ + + + | Component | Value | Ref Range | Performed | Pathologist | | | | | At | Signature | + +--------+ + + + | Ammonia | 43 (H) | 11 - 35 umol/L | [facility] | | | | | [...] + | [facility] | [address] | [place] | [phone] | | [facility] | | [address] | | | - LABORATORY | | [...] | | B-12 | <145 | | [facility] | | | | pg/mLINDETERMINATE: | [...] [address] | [place] | [phone] | | [facility] | | [address] | | | - LABORATORY | | [...] [address] | [place] | [phone] | | [facility] | | [address] | | | - LABORATORY | | [...] | Direct | | mg/dl | [facility] | | | | [...] [address] | [place] | [phone] | | [facility] | | [address] | | | - LABORATORY | | | | + + + + + CBC with Differential (08/13/2015 6:20 AM PST) + + + + + + | Component | Value | Ref Range | Performed | Pathologist | | | | | At | Signature | + + + + + + | WBC | 4.9 | 4.0 - 11.0 K/uL | [facility] [...] + | [facility] | [address] | [place] | [phone] | | [facility] | | [address] | | | - LABORATORY | | [...] mL/min/1.73m2 | [facility] | | | [facility] | RATE,ESTIMATED | | MEDICAL | | | | mL/min/1.64c1Dyng than | | CENTER - | | [...] | | ine Ratio | | | [facility] | | [...] [address] | [place] | [phone] | | [facility] | | [address] | | | - LABORATORY | | [...] | Neutrophils | | K/uL | [facility] | [...] [address] | [place] | [phone] | | [facility] | | [address] | | | - LABORATORY | | [...] 0.51 (L) | 0.60 - 1.30 | [facility] | | | | | mg/dL | [facility] | | | | | | MEDICAL | | | | | | CENTER - | | | | | | LABORATORY | | + + + + + + | eGFR if not | >60Comment: GLOMERULAR | >=60 | [facility] | | | | FILTRATION | mL/min/1.73m2 | [facility] | | | [facility] | RATE,ESTIMATED | | MEDICAL | | | | mL/min/1.72y6Hjfi than | | CENTER - | | [...] + | [facility] | [address] | [place] | [phone] | | [facility] | | [address] | | | - LABORATORY | | [...] ST. | [address] | [place] | [phone] | | [facility] | | [address] | | | - LABORATORY | | [...] | | | | | mg/dL | [facility] | | | | | | MEDICAL | | | | | | CENTER - | | | | | | LABORATORY | | + + + + + + | eGFR if not | >60Comment: GLOMERULAR | >=60 | [facility] | | | | FILTRATION | mL/min/1.73m2 | [facility] | | | [facility] | RATE,ESTIMATED | | MEDICAL | | | | mL/min/1.19d6Eotz than | | CENTER - | | [...] [address] | [place] | [phone] | | [facility] | | [address] | | | - LABORATORY | | [...] | | | | | M/uL | [facility] | | | | [...] + | [facility] | [address] | [place] | [phone] | | [facility] | | [address] | | | - LABORATORY | | [...] | | | | mmol/L | [facility] | | | | [...] 7 | 7 - 18 mg/dL | [facility] [...] mL/min/1.73m2 | [facility] | | | [facility] | RATE,ESTIMATED | | MEDICAL | | | | mL/min/1.18w2Rbdw than | | CENTER - | | [...] [address] | [place] | [phone] | | [facility] | | [address] | | | - LABORATORY | | | | + + + + + Magnesium (08/10/2015 6:29 AM PST) + +-------+ + + + | Component | Value | Ref Range | Performed | Pathologist | | | | | At | Signature | + +-------+ + + + | Magnesium | 2.4 | 1.8 - 2.5 mg/dL | [facility] | | | | [...] [address] | [place] | [phone] | | [facility] | | [address] | | | - LABORATORY | | | | + + + + + Culture, Urine (08/09/2015 11:24 PM PST) + + + + + + | Component | Value | Ref Range | Performed | Pathologist | | | | | At | Signature | + + + + + + | Culture | No Growth | | [facility] | | | | [...] | + + + + + | [facility] | [address] | [place] | [phone] | | [facility] | | [address] | | | - LABORATORY | | | | + + + + + Urinalysis with Microscopic with Culture if Indicated (08/09/2015 11:24 PM PST) + + + + + + | Component | Value | Ref Range | Performed | Pathologist | | | | | At | Signature | + + + + + + | Color | Yellow | Light Yellow, | [facility] | | | | | Yellow | [facility] | | | | [...] - 1.030 | [facility] | | | [place] | | | [facility] | | [...] [address] | [place] | [phone] | | [facility] | | [address] | | | - LABORATORY | | [...] ST. | [address] | [place], [place] | [phone] | | [facility] | | [address] | | | - LABORATORY | | | | + + + + + Magnesium (08/09/2015 10:55 PM PST) + +-------+ + + + | Component | Value | Ref Range | Performed | Pathologist | | | | | At | Signature | + +-------+ + + + | Magnesium | 2.3 | 1.8 - 2.5 mg/dL | [facility] [address] | [place] | [phone] | | [facility] | | [address] | | | - LABORATORY | | [...] + | [facility] | [address] | [place] | [phone] | | [facility] | | [address] | | | - LABORATORY | | [...] 7 | 7 - 18 mg/dL | [facility] | | | | | | [facility] | | | | | | MEDICAL | | | | | | CENTER - | | | | | | LABORATORY | | + + + + + + | Creatinine | 0.59 (L) | 0.60 - 1.30 | [facility] [...] mL/min/1.73m2 | [facility] | | | [facility] | RATE,ESTIMATED | | MEDICAL | | | | mL/min/1.89s2Ueff than | | CENTER - | | [...] ST. | [address] | [place] | [phone] | | [facility] | | [address] | | | - LABORATORY | | [...] | Neutrophils | | K/uL | [facility] | | | | | | MEDICAL | | | | | | CENTER - | | | | | | LABORATORY | | + + + + + + | Absolute | 0.40 (L) | 0.60 - 3.20 | [facility] | | | Lymphocytes | | K/uL | [facility] | [...] | 0.00 | 0.00 - 0.10 | [facility] | | | Basophils | | K/Ashok | [facility] | | | | [...] [address] | [place] | [phone] | | [facility] | | [address] | | | - LABORATORY | | | | + + + + + documented in this encounter Visit Diagnoses + + | Diagnosis | + + | Sepsis due to Escherichia coli (E. coli) ([facility]) - Primary Other septicemia due to | | gram-negative organism | + + | Alcoholism ([facility]) Other and unspecified alcohol dependence, unspecified drinking [...] | | | | | | use [place] 10/325 if ordered. If | | | [...]
--- OUTSIDE RECORDS SUMMARY | ~2019-09-09 | XMS | Encounter Summary ---
Demographics + + + | Address | [address] | | | [place] [address] | + + + | Home Phone [...] + + + | Author | [facility] | + + + | Organization | [facility] | + + + | [...] Team Providers + +------+ + | Care Client Liaison Name | Role | Phone | + [...] | | | | [place], | | | | | | [place] [address] | | | +--------+ + + + [...] | | Patient: EVANS ASTORGA Med Rec: [id number] Sex M Bdate: 1960 | | Date/Time Data | | Entered Into [facility] | | Anesth PostOp | | Surgery Date [id number] 02/19/03 10:45 | | Anesthesiologist BARRETT HELLER 02/19/03 10:45 | | | + + documented in this encounter Visit Diagnoses Not on filedocumented in this encounter"
--- OUTSIDE RECORDS SUMMARY | ~2019-09-09 | XMS | Encounter Summary ---
Demographics + + + | Address | [address] | | | [place] [address] | + + + | Home Phone [...] Team Providers + +------+ + | Care Mail Officer Name | Role | Phone | [...] Torres | | | | | | [facility] and | | | | | | Counseling [address] | | | | | | [address] [place], | | | | | | [place] [address] | | | | | | [phone] | | | | | | | [...] | | + +---------+ + + | [facility] DEPARTMENT [facility] | | | | [...] | | + +---------+ + + | [facility] | | | | | [...] | | + +---------+ + + | [facility] DE[facility] | | | | [...] | | + +---------+ + + | [facility] DEPARTMENT OF | | | | [...]
--- OUTSIDE RECORDS SUMMARY | ~2019-09-09 | XMS | Encounter Summary ---
Demographics + + + | Address | [address] | | | [place] [address] | + + + | Home Phone [...] Author + + + | Author | [facility] | + + + | Organization | [facility] | + + + | Address [...] Team Providers + +------+ + | Care Packing Machine Feeder Name | Role | Phone | + [...] + | 09/23/ | Emergency | [facility] Emergency | | | | 2009 | | Department [address] | | | | | [address] | | | | | | [facility] | | | | | | [place], [place] | | | | | | [address] | | | | | | [phone] | | | +--------+ + + + [...]
--- OUTSIDE RECORDS SUMMARY | ~2019-09-09 | XMS | Encounter Summary ---
Demographics + + + | Address | [address] | | | [place] [address] | + + + | Home Phone | | + + + | Preferred Language | Unknown | + + + | Marital Status | | + + + | Adventism Affiliation | Unknown | + + + | Race | Unknown | + + + | Ethnic Group | Unknown | + + + Author + + + | Author | [facility] | | | and [place] | + + + | Organization | [facility] | | [...] Team Providers + +------+ + | Care Heavy Threader Name | Role | Phone | + +------+ + PCP | Unavailable | + +------+ + Encounter Details +--------+ + + + + | Date | Type | Department | Care Team | Description | +--------+ + + + + | 03/12/ | Hospital | [facility] | Conversion | Pain | | 2015 | Encounter | CONVERSION [address] | Transaction, | | | | | [address] | Provider Unknown | | | | | [place], [place] | [phone] | | | | | [address] | | | | | | [phone] | | | +--------+ + + + [...]
--- OUTSIDE RECORDS SUMMARY | ~2019-09-09 | XMS | Encounter Summary ---
Demographics + + + | Address | [address] | | | [place] [address] | + + + | Home Phone [...] + + + | Author | [facility] | + + + | Organization | [facility] | + + + | [...] Team Providers + +------+ + | Care Route Vending Machine Servicer Name | Role | [...] | | | | [place], | [place], [place] | | | | | [place] [address] | [address] | | | | | [phone] | | | +--------+ + + + [...]
--- OUTSIDE RECORDS SUMMARY | ~2019-09-09 | XMS | Encounter Summary ---
Demographics + + + | Address | [address] | | | [place] [address] | + + + | Home Phone | | + + + | Preferred Language | Unknown | + + + | Marital Status | | + + + | Denominational Affiliation | Unknown | + + + | Race | Unknown | + + + | Ethnic Group | Unknown | + + + Author + + + | Author | [facility] | | | and [place] | + + + | Organization | [facility] | | | [...] Team Providers + +------+ + | Care Share Holder Name | Role | Phone | + +------+ + PCP | Unavailable | + +------+ + Encounter Details +--------+ + + + + | Date | Type | Department | Care Team | Description | +--------+ + + + + | 11/12/ | Hospital | [facility] | Rodo [place], | | | 2008 - | Encounter | MED CTR ICU [address] | [address] [facility] | | | | | [place], | [place], [place] | | | 11/17/ | | [place] [address] | [address] | | | 2008 | | [phone] | [phone] | | | | | | | [...]
--- OUTSIDE RECORDS SUMMARY | ~2019-09-09 | XMS | Encounter Summary ---
Demographics + + + | Address | [address] | | | [place] [address] | + + + | Home Phone | | + + + | Preferred Language | Unknown | + + + | Marital Status | | + + + | Worship Affiliation | Unknown | + + + | Race | Unknown | + + + | Ethnic Group | Unknown | + + + Author + + + | Author | [facility] | | | and Olegarioana | + + + | Organization | [facility] | | | and [...] Providers + +------+ + | Care Manager Respiratory Care Name | Role | Phone | + +------+ + PCP | Unavailable | + +------+ + Encounter Details +--------+ + + + + | Date | Type | Department | Care Team | Description | +--------+ + + + + | 11/22/ | Hospital | [facility] | [place]iana | Seizure (HCC); | | 2015 - | Encounter | [facility] [address] | Subdural hematoma, | | | | [address] | [address] | post-traumatic, | | 11/26/ | | [place], [place] | [place] [address] | initial encounter | | 2014 | | [id number] | [phone] | (HCC); 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 HISTORY OF PRESENT ILLNESS The patient is a 53 y.o. male with significant past medical history. 53 year old male transferred to this facility from [facility] for further evalu ation. The patient [...] if needed. Given report of potential seizure SECURITY SALES CONSULTANT I asked staff to confirm the dose [...] this jae presently. Pt kept on there SECURITY SALES CONSULTANT meds as possible. 11/26/14: patient still ready to d/c once the talha arrives. Nursing is looking into this f urther. The tsh is high but the T4 is in normal range. [facility] recc [facility] Recent Labs Lab 11/25/14 0529 11/23/14 0425 TSH -- 12.42* FREET4 0.9 -- Past Medical History Diagnosis Date Alcohol abuse Frequent falls Drug abuse Past Surgical History Procedure Laterality Date No past surgeries Craniotomy Right 10/11/2014 Procedure: CRANIOTOMY - FOR BLEED; Surgeon: Anthony Chong MD; Location: [facility] IN OR; Service: Neurosurgery; Laterality: Right; Craniectomy Right 10/11/2014 Procedure: CRANIECTOMY; Surgeon: Anthony Chong MD; Location: [facility] OR; Ser vice: Neurosurgery; Laterality: [...] Value Units Date/Time CT head without contrast [[id number]] Resulted: 11/23/14719 Order Status: Completed Updated: 11/23/14724 Narrative: EVANS MCGUIRE [address] HEAD WO CONTRAST 11/23/2014 7:13 AM INDICATION: Altered mental status, hemorrhage COMPARISON: 11/22/14 TECHNIQUE: CT scan of the head without contrast. 5-mm axial noncontrast images were acquir ed from the foramen magnum through the cranial vertex. FINDINGS: On hide and skin processing worker imaging, there is normal craniocervical alignment with [...] with MRI could be performed. Head Non-Con [[id number]] Resulted: 11/22/142119 Order Status: Completed Updated: 11/22/142124 [...] of the head post right craniectomy. Disposition: jail Condition: Stable Code Status: Full Code Discharge [...] orders. Aspiration precautions Fall precautions [facility] [address] [facility] [address] In 4 weeks to eval for replacement of skull flap or sooner if needed Carlos Mcconnell MD [address] [place] [place] [id number] In 1 week or next available whichever [...] are the prescriptions that you need to draft roller picker. You may get the following medications [...] Date of Service: 11/25/14 1015 Status: Signed Heel Cutter: Miguel Ángel John MD (Physician) [facility] Service: Hospitalist Discharge Summary Date of [...] H&P 11/23/14 0252 Expand All Collapse All [facility] Service: Hospitalist Admission History & Physical Date of Admission: 11/22/2014 Requesting Physician: [facility] Reason for Admission: SZ and SDH History Obtained From: patient CHIEF COMPLAINT: SZ and MARSH. HISTORY OF PRESENT ILLNESS The patient is a 53 y.o. male with significant past medical history. 53 year old male transferred to this facility from [facility] for further evalu ation. The patient [...] if needed. Given report of potential seizure SECURITY SALES CONSULTANT I asked staff to confirm the dose [...] this jae presently. Pt kept on there SECURITY SALES CONSULTANT meds as possible. 11/25/14: patient still ready to d/c once the talha arrives. Nursing is looking into this f urther. Past Medical History Diagnosis Date Alcohol abuse Frequent falls Drug abuse Past Surgical History Procedure Laterality Date No past surgeries Craniotomy Right 10/11/2014 Procedure: CRANIOTOMY - FOR BLEED; Surgeon: Anthony Chong MD; Location: [facility] IN OR; Service: Neurosurgery; Laterality: Right; Craniectomy Right 10/11/2014 Procedure: CRANIECTOMY; Surgeon: Anthony Chong MD; Location: [facility] OR; Ser vice: Neurosurgery; Laterality: [...] Value Units Date/Time CT head without contrast [[id number]] Resulted: 11/23/14719 Order Status: Completed Updated: 11/23/14724 Narrative: EVANS LOCKETTKATHI [address] HEAD WO CONTRAST 11/23/2014 7:13 AM INDICATION: Altered mental status, hemorrhage COMPARISON: 11/22/14 TECHNIQUE: CT scan of the head without contrast. 5-mm axial noncontrast images were acquir ed from the foramen magnum through the cranial vertex. FINDINGS: On hide and skin processing worker imaging, there is normal craniocervical alignment with [...] with MRI could be performed. Head Non-Con [[id number]] Resulted: 11/22/142119 Order Status: Completed Updated: 11/22/142124 [...] of the head post right craniectomy. Disposition: jail Condition: Stable Code Status: Full Code Discharge [...] orders. 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 You may get the following medications [...] 1934 Date of Service: 11/24/1436 Status: Signed Heel Cutter: Miguel Ángel John MD (Physician) [facility] Service: Hospitalist Discharge Summary Date of [...] H&P 11/23/14 0252 Expand All Collapse All [facility] Service: Hospitalist Admission History & Physical Date of Admission: 11/22/2014 Requesting Physician: Carter , Emergency Department Reason for Admission: SZ and SDH History Obtained From: patient CHIEF COMPLAINT: SZ and MARSH. HISTORY OF PRESENT ILLNESS The patient is a 53 y.o. male with significant past medical history. 53 year old male transferred to this facility from [facility] for further evalu ation. The patient [...] if needed. Given report of potential seizure SECURITY SALES CONSULTANT I asked staff to confirm the dose [...] this jae presently. Pt kept on there SECURITY SALES CONSULTANT meds as possible. Past Medical History Diagnosis Date Alcohol abuse Frequent falls Drug abuse Past Surgical History Procedure Laterality Date No past surgeries Craniotomy Right 10/11/2014 Procedure: CRANIOTOMY - FOR BLEED; Surgeon: Anthony Chong MD; Location: [facility] IN OR; Service: Neurosurgery; Laterality: Right; Craniectomy Right 10/11/2014 Procedure: CRANIECTOMY; Surgeon: Anthony Chong MD; Location: [facility] OR; Ser vice: Neurosurgery; Laterality: [...] Value Units Date/Time CT head without contrast [[id number]] Resulted: 11/23/14719 Order Status: Completed Updated: 11/23/14724 Narrative: EVANS MCGUIRE [address] HEAD WO CONTRAST 11/23/2014 7:13 AM INDICATION: Altered mental status, hemorrhage COMPARISON: 11/22/14 TECHNIQUE: CT scan of the head without contrast. 5-mm axial noncontrast images were acquir ed from the foramen magnum through the cranial vertex. FINDINGS: On hide and skin processing worker imaging, there is normal craniocervical alignment with [...] with MRI could be performed. Head Non-Con [[id number]] Resulted: 11/22/142119 Order Status: Completed Updated: 11/22/142124 [...] of the head post right craniectomy. Disposition: jail Condition: Stable Code Status: Full Code No discharge procedures on file. Follow up: [facility] [address] [facility] [address] In 4 weeks to eval for replacement of skull flap or sooner if needed Carlos Mcconnell MD [address] [place] [address] In 1 week or next available whichever [...] 11/26/141714 Date of Service: 11/26/141713 Status: Signed Heel Cutter: Mirtha Suh RN (Registered Nurse) Discharge packet given to transport drivers, report on pt given, all questions answered. IV removed. Report called to Na GALARZA at [facility]. Patient left via transport to [facility]. onver alem Transaction, Provider Unknown - 11/26/2014 4:18 PM PDT Case Management by Josseline Mera RN at 11/26/14 1618 Author: Josseline Mera RN Service: (none) Author Type: Plywood Patcher Filed: 11/26/14 1619 Date of Service: 11/26/14 1618 Status: Signed Heel Cutter: Josseline Mera RN (Plywood Patcher) Disposition: [facility] Transportation: [place] Medicaid-ambulance All orders, signed AVS, and prescriptions have been faxed All DC paperwork completed Patient and family in agreement with discharge plan Medicare important message (N/A): Josseline Mera onver alem Transaction, Provider Unknown - 11/26/2014 9:08 AM PDT Case Management by Josseline Mera RN at 11/26/14 0908 Author: Josseline Mera RN Service: (none) Author Type: Plywood Patcher Filed: 11/26/14 1320 Date of Service: 11/26/14 0908 Status: Addendum Heel Cutter: Josseline Mera RN (Plywood Patcher) Related Notes: Original Note by Josseline Mera RN (Plywood Patcher) filed at 11/26/14 0954 Discharge Plans: Informed that helmet did not arrive on Wednesday as promised, thus pt has not been discharged. Call placed to [facility] and they are indicating it will be deli qamar by 10:30am today. [facility] ([place] informed of plans to [place] today. Stretcher [employer] arranged for 2pm today. Paperwork completed, ready for faxing when helmet arrives. 11:00 Notified [place] Medicaid transport that patient has been discharged and his helmet is her e. 1317 called [facility] ([phone]) and they are in route and (possibly here by 4:30), will call us when closer so we can have pt ready for transport. onver alem Transaction, Provider Unknown - 11/23/2014 9:16 AM PST Case Management by Josseline Mera RN at 11/23/14 0916 Author: Josseline Mera RN Service: (none) Author Type: Plywood Patcher Filed: 11/23/14 1212 Date of Service: 11/23/14915 Status: Addendum Heel Cutter: Josseline Mera RN (Plywood Patcher) Related Notes: Original Note by Josseline Mera RN (Plywood Patcher) filed at 11/23/14 0931 Discharge Planning: Phoned Evans's father Jay Jay ([phone]) to discuss DC plans. He indicated that [...] phone, ended the call. I did call [facility] and they are willing to take Evans back when it is appropriate. Th ey are asking that we arrange transport because of his seizures and spontaneous activity it may not be safe, and that he does not have his helmet here. [place] Medicaid Transport ([phone]) contacted and they can provide stretcher transport but will need definite time to transport. onver alem Transaction, Provider Unknown - 11/23/2014 8:43 AM PST Nurse Progress Note by Misty Hays RN at 11/23/1443 Author: Misty Hays RN Service: (none) Author Type: Registered Nurse Filed: 11/23/14 1410 Date of Service: 11/23/14842 Status: Addendum Heel Cutter: Misty Hays RN (Registered Nurse) Related Notes: Original Note by Misty Hays RN (Registered Nurse) filed at [phone]: Attempted to call Teressa ([phone]) back to give updates and ask pts [...] she had picked up the helmet from [facility] and was not planning on co elizabeth to see the patient until Wednesday. Explained the importance of the helmet. Mother did no t seem to understand importance. onver alme Transaction, Provider Unknown - 11/23/2014 6:29 AM PST Progress Notes by Kyrie Payne RPH at 11/23/14628 Author: Kyrie Payne RPH Service: (none) Author Type: Pharmacist Filed: 11/23/14629 Date of Service: 11/23/1429 Status: Signed Heel Cutter: Kyrie Payne RPH (Pharmacist) Scr = 0.6- [...] | | | | | [place] [address] | | | | + + + + + + | RED CELL | 3.88 (L)Comment: Testing | 4.20 - 5.70 | EXTERNAL | | | COUNT | performed at [facility], [address] | M/uL | LAB | | | | [address], | | | | | | [place] [address] | | | | + + + + + + | Hgb | 12.3 (L)Comment: Testing | 13.2 - 17.0 | EXTERNAL | | | | performed at [facility], [address] | g/dL | LAB | | | | [address], | | | | | | [place] [address] | | | | + + + + + + | Hematocrit, | 36.2 (L)Comment: Testing | 39.0 - 50.0 % | EXTERNAL | | | POC | performed at [facility], [address] | | LAB | | | | [address], | | | | | | [place] [address] | | | | + + + + + + | MCV | 93.4Comment: Testing | 80.0 - 100.0 fl | EXTERNAL | | | | performed at [facility], [address] | | LAB | | | | [address], | | | | | | [place] [address] | | | | + + + + + + | MCH | 31.7Comment: Testing | 27.0 - 34.0 pg | EXTERNAL | | | | performed at [facility], [address] | | LAB | | | | [address], | | | | | | [place] [address] | | | | + + + + + + | MCHC | 34.0Comment: Testing | 32.0 - 35.5 | EXTERNAL | | | | performed at [facility], [address] | g/dL | LAB | | | | [address], | | | | | | [place] [address] | | | | + + + + + + | RDW-CV | 46.8Comment: Testing | 37 - 53 fl | EXTERNAL | | | | performed at [facility], [address] | | LAB | | | | [address], | | | | | | [place] [address] | | | | + + + + + + | Platelet | 161Comment: Testing | 150 - 400 K/uL | EXTERNAL | | | Count | performed at [facility], [address] | | LAB | | | Plasma | [address], | | | | | | [place] [address] | | | | + + + + + + | MPV | 8.7Comment: Testing | fl | EXTERNAL | | | | performed at [facility], [address] | | LAB | | | | [address], | | | | | | [place] [address] | | | | + + + + + + | Differentia | AUTOMATEDComment: | | EXTERNAL | | | l Type | Testing performed at | | LAB | | | | [facility], [address] | | | | | | [place] | | | | | | [address] | | | | + + + + + + | % Segmented | 64.56Comment: Testing | % | EXTERNAL | | | | performed at [facility], [address] | | LAB | | | Neutrophils | [address], | | | | | | [place] [address] | | | | + + + + + + | % | 18.74Comment: Testing | % | EXTERNAL | | | Lymphocytes | performed at [facility], [address] | | LAB | | | | [address], | | | | | | [place] [address] | | | | + + + + + + | % Monocytes | 11.05Comment: Testing | % | EXTERNAL | | | | performed at [facility], [address] | | LAB | | | | [address], | | | | | | [place] [address] | | | | + + + + + + | % | 4.94Comment: Testing | % | EXTERNAL | | | Eosinophils | performed at [facility], [address] | | LAB | | | | [address], | | | | | | [place] [address] | | | | + + + + + + | % Basophils | 0.71Comment: Testing | % | EXTERNAL | | | | performed at [facility], [address] | | LAB | | | | [address], | | | | | | [place] [address] | | | | + + + + + + | Absolute | 3.91Comment: Testing | 1.90 - 7.40 | EXTERNAL | | | Segmented | performed at [facility], [address] | K/uL | LAB | | | Neutrophils | [address], | | | | | | [place] [address] | | | | + + + [...] | | | | | [place] [address] | | | | + + + + + + | Absolute | 0.30Comment: Testing | 0.00 - 0.50 | EXTERNAL | | | Eosinophils | performed at [facility], [address] | K/uL | LAB | | | | [address], | | | | | | [place] [address] | | | | + + + + + + | Absolute | 0.04Comment: Testing | 0.00 - 0.10 | EXTERNAL | | | Basophils | performed at [facility], [address] | K/uL | LAB | | | | [address], | | | | | | [place] [address] | | | | + + + [...] | | | | | [place] [address] | | | | + + + [...] | | | | | [place] [address] | | | | + + + [...] | | | | | [place] [address] | | | | + + + + + + | K | 3.8Comment: Testing | 3.5 - 4.9 | EXTERNAL | | | | performed at [facility], [address] | mmol/L | LAB | | | | [address], | | | | | | [place] [address] | | | | + + + + + + | Cl | 104Comment: Testing | 99 - 109 mmol/L | EXTERNAL | | | | performed at [facility], [address] | | LAB | | | | [address], | | | | | | [place] [address] | | | | + + + + + + | CO2 | 27Comment: Testing | 23 - 32 mmol/L | EXTERNAL | | | | performed at [facility], [address] | | LAB | | | | [address], | | | | | | [place] [address] | | | | + + + + + + | Anion Gap | 9Comment: Testing | 5 - 20 mmol/L | EXTERNAL | | | | performed at [facility], [address] | | LAB | | | | [address], | | | | | | [place] [address] | | | | + + + + + + | Glucose, | 99Comment: Testing | 65 - 99 mg/dL | EXTERNAL | | | Fasting | performed at [facility], [address] | | LAB | | | | [address], | | | | | | [place] [address] | | | | + + + + + + | BUN | 8Comment: Testing | 8 - 25 mg/dL | EXTERNAL | | | | performed at [facility], [address] | | LAB | | | | [address], | | | | | | [place] [address] | | | | + + + + + + | Creatinine | 0.62 (L)Comment: Testing | 0.70 - 1.30 | EXTERNAL | | | | performed at [facility], [address] | mg/dL | LAB | | | | [address], | | | | | | [place] [address] | | | | + + + + + + | BUN/Creatin | 13Comment: Testing | | EXTERNAL | | | ine Ratio | performed at [facility], [address] | | LAB | | | [address], | | | | | | [place] [address] | | | | + + + + + + | Calcium | 8.9Comment: Testing | 8.5 - 10.5 | EXTERNAL | | | | performed at [facility], [address] | mg/dL | LAB | | | | [address], | | | | | | [place] [address] | | | | + + + + + + | Protein, | 6.7Comment: Testing | 6.3 - 8.2 g/dL | EXTERNAL | | | Total | performed at [facility], [address] | | LAB | | | | [address], | | | | | | [place] [id number] | | | | + + + + + + | Albumin | 3.2 (L)Comment: Testing | 3.6 - 5.0 g/dL | EXTERNAL | | | | performed at [facility], [address] | | LAB | | | | [address], | | | | | | [place] [id number] | | | | + + + + + + | Globulin | 3.5Comment: Testing | 1.3 - 4.9 g/dL | EXTERNAL | | | | performed at [facility], [address] | | LAB | | | [address], | | | | | | [place] [address] | | | | + + + + + + | A/G Ratio | 0.9 (L)Comment: Testing | 1.0 - 2.4 | EXTERNAL | | | | performed at [facility], [address] | | LAB | | | | [address], | | | | | | [place] [address] | | | | + + + + + + | Bilirubin | 0.4Comment: Testing | 0.1 - 1.5 mg/dL | EXTERNAL | | | Total | performed at [facility], [address] | | LAB | | | | [address], | | | | | | [place] [address] | | | | + + + + + + | ALP, | 105Comment: Testing | 35 - 115 U/L | EXTERNAL | | | External | performed at [facility], [address] | | LAB | | | | [address], | | | | | | [place] [address] | | | | + + + + + + | AST | 26Comment: Testing | 10 - 45 U/L | EXTERNAL | | | | performed at [facility], [address] | | LAB | | | | [address], | | | | | | [place] [address] | | | | + + + + + + | ALT | 19Comment: Testing | 10 - 65 U/L | EXTERNAL | | | | performed at [facility], [address] | | LAB | | | | [address], | | | | | | [place] [address] | | | | + + + [...] W | | | | | | [address], | | | | | | [place] [address] | | | | + + + [...] | | | | | [place] [address] | | | | + + + + + + | RED CELL | 4.10 (L)Comment: Testing | 4.20 - 5.70 | EXTERNAL | | | COUNT | performed at [facility], [address] | M/uL | LAB | | | | [address], | | | | | | [place] [address] | | | | + + + + + + | Hgb | 12.9 (L)Comment: Testing | 13.2 - 17.0 | EXTERNAL | | | | performed at [facility], [address] | g/dL | LAB | | | | [address], | | | | | | [place] [address] | | | | + + + + + + | Hematocrit, | 38.6 (L)Comment: Testing | 39.0 - 50.0 % | EXTERNAL | | | POC | performed at [facility], [address] | | LAB | | | | [address], | | | | | | [place] [address] | | | | + + + + + + | MCV | 94.2Comment: Testing | 80.0 - 100.0 fl | EXTERNAL | | | | performed at [facility], [address] | | LAB | | | | [address], | | | | | | [place] [address] | | | | + + + + + + | MCH | 31.4Comment: Testing | 27.0 - 34.0 pg | EXTERNAL | | | | performed at [facility], [address] | | LAB | | | | [address], | | | | | | [place] [address] | | | | + + + + + + | MCHC | 33.3Comment: Testing | 32.0 - 35.5 | EXTERNAL | | | | performed at [facility], [address] | g/dL | LAB | | | | [address], | | | | | | [place] [address] | | | | + + + + + + | RDW-CV | 46.8Comment: Testing | 37 - 53 fl | EXTERNAL | | | | performed at [facility], [address] | | LAB | | | | [address], | | | | | | [place] [address] | | | | + + + + + + | Platelet | 161Comment: Testing | 150 - 400 K/uL | EXTERNAL | | | Count | performed at [facility], [address] | | LAB | | | Plasma | [address], | | | | | | [place] [address] | | | | + + + + + + | MPV | 8.9Comment: Testing | fl | EXTERNAL | | | | performed at [facility], [address] | | LAB | | | | [address], | | | | | | [place] [address] | | | | + + + + + + | Differentia | AUTOMATEDComment: | | EXTERNAL | | | l Type | Testing performed at | | LAB | | | | [facility], [address] | | | | | | [place] | | | | | | [address] | | | | + + + + + + | % Segmented | 60.71Comment: Testing | % | EXTERNAL | | | | performed at [facility], [address] | | LAB | | | Neutrophils | [address], | | | | | | [place] [address] | | | | + + + + + + | % | 21.02Comment: Testing | % | EXTERNAL | | | Lymphocytes | performed at [facility], [address] | | LAB | | | | [address], | | | | | | [place] [address] | | | | + + + + + + | % Monocytes | 12.59Comment: Testing | % | EXTERNAL | | | | performed at [facility], [address] | | LAB | | | | [address], | | | | | | [place] [address] | | | | + + + + + + | % | 5.10Comment: Testing | % | EXTERNAL | | | Eosinophils | performed at [facility], [address] | | LAB | | | | [address], | | | | | | [place] [address] | | | | + + + + + + | % Basophils | 0.58Comment: Testing | % | EXTERNAL | | | | performed at [facility], [address] | | LAB | | | [address], | | | | | | [place] [address] | | | | + + + + + + | Absolute | 3.70Comment: Testing | 1.90 - 7.40 | EXTERNAL | | | Segmented | performed at [facility], [address] | K/uL | LAB | | | Neutrophils | [address], | | | | | | [place] [address] | | | | + + + + + + | Absolute | 1.28Comment: Testing | 1.00 - 3.90 | EXTERNAL | | | Lymphocytes | performed at [facility], [address] | K/uL | LAB | | | | [address], | | | | | | [place] [address] | | | | + + + + + + | Absolute | 0.77Comment: Testing | 0.00 - 0.80 | EXTERNAL | | | Monocytes | performed at [facility], [address] | K/uL | LAB | | | | [address], | | | | | | [place] [address] | | | | + + + + + + | Absolute | 0.31Comment: Testing | 0.00 - 0.50 | EXTERNAL | | | Eosinophils | performed at [facility], [address] | K/uL | LAB | | | | [address], | | | | | | [place] [address] | | | | + + + + + + | Absolute | 0.04Comment: Testing | 0.00 - 0.10 | EXTERNAL | | | Basophils | performed at [facility], [address] | K/uL | LAB | | | | [address], | | | | | | [place] [id number] | | | | + + + [...] | | | | | [place] [address] | | | | + + + [...] | | | | | [place] [address] | | | | + + + [...] | LAB | | | | [address], | | | | | | [place] [address] | | | | + + + [...] | | | | | [place] [address] | | | | + + + + + + | K | 3.8Comment: Testing | 3.5 - 4.9 | EXTERNAL | | | | performed at [facility], [address] | mmol/L | LAB | | | | [address], | | | | | | [place] [address] | | | | + + + + + + | Cl | 104Comment: Testing | 99 - 109 mmol/L | EXTERNAL | | | | performed at [facility], [address] | | LAB | | | | [address], | | | | | | [place] [address] | | | | + + + + + + | CO2 | 28Comment: Testing | 23 - 32 mmol/L | EXTERNAL | | | | performed at [facility], [address] | | LAB | | | | [address], | | | | | | [place] [address] | | | | + + + + + + | Anion Gap | 8Comment: Testing | 5 - 20 mmol/L | EXTERNAL | | | | performed at [facility], [address] | | LAB | | | | [address], | | | | | | [place] [address] | | | | + + + + + + | Glucose, | 107 (H)Comment: Testing | 65 - 99 mg/dL | EXTERNAL | | | Fasting | performed at [facility], [address] | | LAB | | | | [address], | | | | | | [place] [address] | | | | + + + + + + | BUN | 6 (L)Comment: Testing | 8 - 25 mg/dL | EXTERNAL | | | | performed at [facility], [address] | | LAB | | | | [address], | | | | | | [place] [address] | | | | + + + + + + | Creatinine | 0.59 (L)Comment: Testing | 0.70 - 1.30 | EXTERNAL | | | | performed at [facility], [address] | mg/dL | LAB | | | | [address], | | | | | | [place] [address] | | | | + + + + + + | BUN/Creatin | 10Comment: Testing | | EXTERNAL | | | ine Ratio | performed at [facility], [address] | | LAB | | | | [address], | | | | | | [place] [id number] | | | | + + + + + + | Calcium | 9.2Comment: Testing | 8.5 - 10.5 | EXTERNAL | | | | performed at [facility], [address] | mg/dL | LAB | | | | [address], | | | | | | [place] [address] | | | | + + + + + + | Protein, | 7.0Comment: Testing | 6.3 - 8.2 g/dL | EXTERNAL | | | Total | performed at [facility], [address] | | LAB | | | | [address], | | | | | | [place] [address] | | | | + + + + + + | Albumin | 3.4 (L)Comment: Testing | 3.6 - 5.0 g/dL | EXTERNAL | | | | performed at [facility], [address] | | LAB | | | | [address], | | | | | | [place] [address] | | | | + + + + + + | Globulin | 3.6Comment: Testing | 1.3 - 4.9 g/dL | EXTERNAL | | | | performed at [facility], [address] | | LAB | | | | [address], | | | | | | [place] [address] | | | | + + + + + + | A/G Ratio | 0.9 (L)Comment: Testing | 1.0 - 2.4 | EXTERNAL | | | | performed at [facility], [address] | | LAB | | | | [address], | | | | | | [place] [address] | | | | + + + + + + | Bilirubin | 0.5Comment: Testing | 0.1 - 1.5 mg/dL | EXTERNAL | | | Total | performed at [facility], [address] | | LAB | | | | [address], | | | | | | [place] [address] | | | | + + + + + + | ALP, | 115Comment: Testing | 35 - 115 U/L | EXTERNAL | | | External | performed at [facility], [address] | | LAB | | | | [address], | | | | | | [place] [address] | | | | + + + + + + | AST | 27Comment: Testing | 10 - 45 U/L | EXTERNAL | | | | performed at [facility], [address] | | LAB | | | | [address], | | | | | | [place] [address] | | | | + + + + + + | ALT | 21Comment: Testing | 10 - 65 U/L | EXTERNAL | | | | performed at [facility], [address] | | LAB | | | | [address], | | | | | | [place] [address] | | | | + + + [...] | | | | | [place] [address] | | | | + + + [...] | | | | | [place] [address] | | | | + + + + + + | RED CELL | 4.01 (L)Comment: Testing | 4.20 - 5.70 | EXTERNAL | | | COUNT | performed at [facility], [address] | M/uL | LAB | | | | [address], | | | | | | [place] [address] | | | | + + + + + + | Hgb | 12.3 (L)Comment: Testing | 13.2 - 17.0 | EXTERNAL | | | | performed at [facility], [address] | g/dL | LAB | | | | [address], | | | | | | [place] [address] | | | | + + + + + + | Hematocrit, | 37.8 (L)Comment: Testing | 39.0 - 50.0 % | EXTERNAL | | | POC | performed at [facility], [address] | | LAB | | | | [address], | | | | | | [place] [address] | | | | + + + + + + | MCV | 94.3Comment: Testing | 80.0 - 100.0 fl | EXTERNAL | | | | performed at [facility], [address] | | LAB | | | | [address], | | | | | | [place] [address] | | | | + + + + + + | MCH | 30.6Comment: Testing | 27.0 - 34.0 pg | EXTERNAL | | | | performed at [facility], [address] | | LAB | | | | [address], | | | | | | [place] [address] | | | | + + + + + + | MCHC | 32.4Comment: Testing | 32.0 - 35.5 | EXTERNAL | | | | performed at [facility], [address] | g/dL | LAB | | | | [address], | | | | | | [place] [address] | | | | + + + + + + | RDW-CV | 47.7Comment: Testing | 37 - 53 fl | EXTERNAL | | | | performed at [facility], [address] | | LAB | | | | [address], | | | | | | [place] [address] | | | | + + + + + + | Platelet | 153Comment: Testing | 150 - 400 K/uL | EXTERNAL | | | Count | performed at [facility], [address] | | LAB | | | Plasma | [address], | | | | | | [place] [address] | | | | + + + + + + | MPV | 9.0Comment: Testing | fl | EXTERNAL | | | | performed at [facility], [address] | | LAB | | | | [address], | | | | | | [place] [address] | | | | + + + + + + | Differentia | AUTOMATEDComment: | | EXTERNAL | | | l Type | Testing performed at | | LAB | | | | [facility], [address] | | | | | | [place] | | | | | | [address] | | | | + + + + + + | % Segmented | 70.29Comment: Testing | % | EXTERNAL | | | | performed at [facility], [address] | | LAB | | | Neutrophils | [address], | | | | | | [place] [address] | | | | + + + + + + | % | 14.74Comment: Testing | % | EXTERNAL | | | Lymphocytes | performed at [facility], [address] | | LAB | | | | [address], | | | | | | [place] [address] | | | | + + + + + + | % Monocytes | 10.97Comment: Testing | % | EXTERNAL | | | | performed at [facility], [address] | | LAB | | | | [address], | | | | | | [place] [address] | | | | + + + + + + | % | 3.52Comment: Testing | % | EXTERNAL | | | Eosinophils | performed at [facility], [address] | | LAB | | | | [address], | | | | | | [place] [address] | | | | + + + + + + | % Basophils | 0.48Comment: Testing | % | EXTERNAL | | | | performed at [facility], [address] | | LAB | | | | [address], | | | | | | [place] [address] | | | | + + + + + + | Absolute | 5.09Comment: Testing | 1.90 - 7.40 | EXTERNAL | | | Segmented | performed at [facility], [address] | K/uL | LAB | | | Neutrophils | [address], | | | | | | [place] [address] | | | | + + + + + + | Absolute | 1.07Comment: Testing | 1.00 - 3.90 | EXTERNAL | | | Lymphocytes | performed at [facility], [address] | K/uL | LAB | | | | [address], | | | | | | [place] [address] | | | | + + + + + + | Absolute | 0.79Comment: Testing | 0.00 - 0.80 | EXTERNAL | | | Monocytes | performed at [facility], [address] | K/uL | LAB | | | | [address], | | | | | | [place] [address] | | | | + + + + + + | Absolute | 0.26Comment: Testing | 0.00 - 0.50 | EXTERNAL | | | Eosinophils | performed at [facility], [address] | K/uL | LAB | | | | [address], | | | | | | [place] [id number] | | | | + + + + + + | Absolute | 0.03Comment: Testing | 0.00 - 0.10 | EXTERNAL | | | Basophils | performed at [facility], [address] | K/uL | LAB | | | | [address], | | | | | | [place] [id number] | | | | + + + [...] | | | | | [place] [address] | | | | + + + [...] | | | | | [place] [address] | | | | + + + [...] | | | | | [place] [address] | | | | + + + + + + | K | 4.0Comment: Testing | 3.5 - 4.9 | EXTERNAL | | | | performed at [facility], [address] | mmol/L | LAB | | | | [address], | | | | | | [place] [address] | | | | + + + + + + | Cl | 102Comment: Testing | 99 - 109 mmol/L | EXTERNAL | | | | performed at [facility], [address] | | LAB | | | | [address], | | | | | | [place] [address] | | | | + + + + + + | CO2 | 26Comment: Testing | 23 - 32 mmol/L | EXTERNAL | | | | performed at [facility], [address] | | LAB | | | | [address], | | | | | | [place] [address] | | | | + + + + + + | Anion Gap | 11Comment: Testing | 5 - 20 mmol/L | EXTERNAL | | | | performed at [facility], [address] | | LAB | | | | [address], | | | | | | [place] [address] | | | | + + + + + + | Glucose, | 103 (H)Comment: Testing | 65 - 99 mg/dL | EXTERNAL | | | Fasting | performed at [facility], [address] | | LAB | | | | [address], | | | | | | [place] [address] | | | | + + + + + + | BUN | 6 (L)Comment: Testing | 8 - 25 mg/dL | EXTERNAL | | | | performed at [facility], [address] | | LAB | | | | [address], | | | | | | [place] [id number] | | | | + + + + + + | Creatinine | 0.63 (L)Comment: Testing | 0.70 - 1.30 | EXTERNAL | | | | performed at [facility], [address] | mg/dL | LAB | | | | [address], | | | | | | [place] [id number] | | | | + + + + + + | BUN/Creatin | 10Comment: Testing | | EXTERNAL | | | ine Ratio | performed at [facility], [address] | | LAB | | | | [address], | | | | | | [place] [id number] | | | | + + + + + + | Calcium | 9.3Comment: Testing | 8.5 - 10.5 | EXTERNAL | | | | performed at [facility], [address] | mg/dL | LAB | | | | [address], | | | | | | [place] [address] | | | | + + + + + + | Protein, | 6.9Comment: Testing | 6.3 - 8.2 g/dL | EXTERNAL | | | Total | performed at [facility], [address] | | LAB | | | | [address], | | | | | | [place] [address] | | | | + + + + + + | Albumin | 3.5 (L)Comment: Testing | 3.6 - 5.0 g/dL | EXTERNAL | | | | performed at [facility], [address] | | LAB | | | | [address], | | | | | | [place] [address] | | | | + + + + + + | Globulin | 3.4Comment: Testing | 1.3 - 4.9 g/dL | EXTERNAL | | | | performed at [facility], [address] | | LAB | | | | [address], | | | | | | [place] [address] | | | | + + + + + + | A/G Ratio | 1.0Comment: Testing | 1.0 - 2.4 | EXTERNAL | | | | performed at [facility], [address] | | LAB | | | | [address], | | | | | | [place] [address] | | | | + + + + + + | Bilirubin | 0.5Comment: Testing | 0.1 - 1.5 mg/dL | EXTERNAL | | | Total | performed at [facility], [address] | | LAB | | | | [address], | | | | | | [place] [address] | | | | + + + + + + | ALP, | 103Comment: Testing | 35 - 115 U/L | EXTERNAL | | | External | performed at [facility], [address] | | LAB | | | | [address], | | | | | | [place] [address] | | | | + + + [...] | | | | | [place] [address] | | | | + + + [...] | | | | | [place] [address] | | | | + + [...] magnum through the cranial vertex. FINDINGS: On hide and skin processing worker | | | imaging, there is normal [...] the cranial vertex. | | FINDINGS: On hide and skin processing worker imaging, there is normal craniocervical alignment with [...] | | | | | [place] [address] | | | | + + + + + + | RED CELL | 4.01 (L)Comment: Testing | 4.20 - 5.70 | EXTERNAL | | | COUNT | performed at [facility], [address] | M/[address]L | LAB | | | | [address], | | | | | | [place] [address] | | | | + + + + + + | Hgb | 12.5 (L)Comment: Testing | 13.2 - 17.0 | EXTERNAL | | | | performed at [facility], [address] | g/dL | LAB | | | | [address], | | | | | | [place] [address] | | | | + + + + + + | Hematocrit, | 38.0 (L)Comment: Testing | 39.0 - 50.0 % | EXTERNAL | | | POC | performed at [facility], [address] | | LAB | | | | [address], | | | | | | [place] [address] | | | | + + + + + + | MCV | 94.9Comment: Testing | 80.0 - 100.0 fl | EXTERNAL | | | | performed at [facility], [address] | | LAB | | | | [address], | | | | | | [place] [address] | | | | + + + + + + | MCH | 31.2Comment: Testing | 27.0 - 34.0 pg | EXTERNAL | | | | performed at [facility], [address] | | LAB | | | | [address], | | | | | | [place] [id number] | | | | + + + + + + | MCHC | 32.9Comment: Testing | 32.0 - 35.5 | EXTERNAL | | | | performed at [facility], [address] | g/dL | LAB | | | | [address], | | | | | | [place] [id number] | | | | + + + + + + | RDW-CV | 47.3Comment: Testing | 37 - 53 fl | EXTERNAL | | | | performed at [facility], [address] | | LAB | | | | [address], | | | | | | [place] [id number] | | | | + + + + + + | Platelet | 171Comment: Testing | 150 - 400 K/uL | EXTERNAL | | | Count | performed at [facility], [address] | | LAB | | | Plasma | [address], | | | | | | [place] [address] | | | | + + + + + + | MPV | 8.8Comment: Testing | fl | EXTERNAL | | | | performed at [facility], [address] | | LAB | | | | [address], | | | | | | [place] [address] | | | | + + + + + + | Differentia | AUTOMATEDComment: | | EXTERNAL | | | l Type | Testing performed at | | LAB | | | | [facility], [address] | | | | | | [place] | | | | | | [address] | | | | + + + + + + | % Segmented | 67.69Comment: Testing | % | EXTERNAL | | | | performed at [facility], [address] | | LAB | | | Neutrophils | [address], | | | | | | [place] [address] | | | | + + + + + + | % | 20.09Comment: Testing | % | EXTERNAL | | | Lymphocytes | performed at [facility], [address] | | LAB | | | | [address], | | | | | | [place] [address] | | | | + + + + + + | % Monocytes | 9.27Comment: Testing | % | EXTERNAL | | | | performed at [facility], [address] | | LAB | | | | [address], | | | | | | [place] [address] | | | | + + + + + + | % | 2.66Comment: Testing | % | EXTERNAL | | | Eosinophils | performed at [facility], [address] | | LAB | | | | [address], | | | | | | [place] [address] | | | | + + + + + + | % Basophils | 0.29Comment: Testing | % | EXTERNAL | | | | performed at [facility], [address] | | LAB | | | | [address], | | | | | | [place] [id number] | | | | + + + + + + | Absolute | 5.79Comment: Testing | 1.90 - 7.40 | EXTERNAL | | | Segmented | performed at [facility], [address] | K/uL | LAB | | | Neutrophils | [address], | | | | | | [place] [id number] | | | | + + + + + + | Absolute | 1.72Comment: Testing | 1.00 - 3.90 | EXTERNAL | | | Lymphocytes | performed at [facility], [address] | K/uL | LAB | | | | [address], | | | | | | [place] [id number] | | | | + + + + + + | Absolute | 0.79Comment: Testing | 0.00 - 0.80 | EXTERNAL | | | Monocytes | performed at [facility], [address] | K/uL | LAB | | | | [address], | | | | | | [place] [id number] | | | | + + + + + + | Absolute | 0.23Comment: Testing | 0.00 - 0.50 | EXTERNAL | | | Eosinophils | performed at [facility], [address] | K/uL | LAB | | | | [address], | | | | | | [place] [id number] | | | | + + + + + + | Absolute | 0.03Comment: Testing | 0.00 - 0.10 | EXTERNAL | | | Basophils | performed at [facility], [address] | K/[address]L | LAB | | | | [address], | | | | | | [place] [id number] | | | | + + + [...] [place] | | | | | | [address] | | | | + + + [...] [address], | | | | | | [place] [address] | | | | + + + [...] | | | | | [place] [address] | | | | + + + [...] | | | | | [place] [address] | | | | + + + + + + | K | 4.2Comment: Testing | 3.5 - 4.9 | EXTERNAL | | | | performed at [facility], [address] | mmol/L | LAB | | | | [address], | | | | | | [place] [address] | | | | + + + + + + | Cl | 102Comment: Testing | 99 - 109 mmol/L | EXTERNAL | | | | performed at [facility], [address] | | LAB | | | | [address], | | | | | | [place] [address] | | | | + + + + + + | CO2 | 25Comment: Testing | 23 - 32 mmol/L | EXTERNAL | | | | performed at [facility], [address] | | LAB | | | | [address], | | | | | | [place] [address] | | | | + + + + + + | Anion Gap | 13Comment: Testing | 5 - 20 mmol/L | EXTERNAL | | | | performed at [facility], [address] | | LAB | | | | [address], | | | | | | [place] [address] | | | | + + + + + + | Glucose, | 113 (H)Comment: Testing | 65 - 99 mg/dL | EXTERNAL | | | Fasting | performed at [facility], [address] | | LAB | | | | [address], | | | | | | [place] [address] | | | | + + + + + + | BUN | 4 (L)Comment: Testing | 8 - 25 mg/dL | EXTERNAL | | | | performed at [facility], [address] | | LAB | | | | [address], | | | | | | [place] [address] | | | | + + + + + + | Creatinine | 0.60 (L)Comment: Testing | 0.70 - 1.30 | EXTERNAL | | | | performed at [facility], [address] | mg/dL | LAB | | | | [address], | | | | | | [place] [address] | | | | + + + + + + | BUN/Creatin | 7Comment: Testing | | EXTERNAL | | | ine Ratio | performed at [facility], [address] | | LAB | | | | [address], | | | | | | [place] [address] | | | | + + + + + + | Calcium | 9.4Comment: Testing | 8.5 - 10.5 | EXTERNAL | | | | performed at [facility], [address] | mg/dL | LAB | | | | [address], | | | | | | [place] [address] | | | | + + + + + + | Protein, | 7.3Comment: Testing | 6.3 - 8.2 g/dL | EXTERNAL | | | Total | performed at [facility], [address] | | LAB | | | | [address], | | | | | | [place] [address] | | | | + + + + + + | Albumin | 3.7Comment: Testing | 3.6 - 5.0 g/dL | EXTERNAL | | | | performed at [facility], [address] | | LAB | | | | [address], | | | | | | [place] [address] | | | | + + + + + + | Globulin | 3.6Comment: Testing | 1.3 - 4.9 g/dL | EXTERNAL | | | | performed at [facility], [address] | | LAB | | | | [address], | | | | | | [place] [address] | | | | + + + + + + | A/G Ratio | 1.0Comment: Testing | 1.0 - 2.4 | EXTERNAL | | | | performed at [facility], [address] | | LAB | | | | [address], | | | | | | [place] [address] | | | | + + + + + + | Bilirubin | 0.5Comment: Testing | 0.1 - 1.5 mg/dL | EXTERNAL | | | Total | performed at [facility], [address] | | LAB | | | | [address], | | | | | | [place] [address] | | | | + + + + + + | ALP, | 104Comment: Testing | 35 - 115 U/L | EXTERNAL | | | External | performed at [facility], [address] | | LAB | | | | [address], | | | | | | [place] [address] | | | | + + + + + + | AST | 36Comment: Testing | 10 - 45 U/L | EXTERNAL | | | | performed at [facility], [address] | | LAB | | | | [address], | | | | | | [place] [address] | | | | + + + + + + | ALT | 26Comment: Testing | 10 - 65 U/L | EXTERNAL | | | | performed at [facility], [address] | | LAB | | | | [facility], | | | | | | [place] [id number] | | | | + + + [...] | | | | | | [facility], | | | | | | [place] [id number] | | | | + + + [...] EXTERNAL | | | | performed at [facility];[address] | K/uL | LAB | | | | [address];[place], [place] | | | | | | [address] | | | | + + + + + + | RED CELL | 3.99 (L)Comment: Testing | 4.20 - 5.70 | EXTERNAL | | | COUNT | performed at [facility];[address] | M/uL | LAB | | | | [address];[place] | | | | | | [address] | | | | + + + + + + | Hgb | 12.4 (L)Comment: Testing | 13.2 - 17.0 | EXTERNAL | | | | performed at [facility];[address] | g/dL | LAB | | | | [address];[place] | | | | | | [address] | | | | + + + + + + | Hematocrit, | 37.9 (L)Comment: Testing | 39.0 - 50.0 % | EXTERNAL | | | POC | performed at [facility];[address] | | LAB | | | | [address];[place] | | | | | | [address] | | | | + + + + + + | MCV | 95.2Comment: Testing | 80.0 - 100.0 fl | EXTERNAL | | | | performed at [facility];[address] | | LAB | | | | [address];[place] | | | | | | [address] | | | | + + + + + + | MCH | 31.0Comment: Testing | 27.0 - 34.0 pg | EXTERNAL | | | | performed at [facility];[address] | | LAB | | | | [address];[place] | | | | | | [address] | | | | + + + + + + | MCHC | 32.6Comment: Testing | 32.0 - 35.5 | EXTERNAL | | | | performed at [facility];[address] | g/dL | LAB | | | | [address];[place] | | | | | | [address] | | | | + + + + + + | RDW-CV | 48.1Comment: Testing | 37 - 53 fl | EXTERNAL | | | | performed at [facility];[address] | | LAB | | | | [address];[place] | | | | | | [address] | | | | + + + + + + | Platelet | 165Comment: Testing | 150 - 400 K/uL | EXTERNAL | | | Count | performed at [facility];[address] | | LAB | | | Plasma | [address];[place] | | | | | | [address] | | | | + + + + + + | MPV | 9.5Comment: Testing | fl | EXTERNAL | | | | performed at [facility];[address] | | LAB | | | | [address];[place] | | | | | | [address] | | | | + + + + + + | Differentia | AUTOMATEDComment: | | EXTERNAL | | | l Type | Testing performed at | | LAB | | | | [facility];[address];[place] [address] | | | | + + + + + + | % Segmented | 79.71Comment: Testing | % | EXTERNAL | | | | performed at [facility];[address] | | LAB | | | Neutrophils | [address];[place] | | | | | | [address] | | | | + + + + + + | % | 12.56Comment: Testing | % | EXTERNAL | | | Lymphocytes | performed at [facility];[address] | | LAB | | | | [address];[place] | | | | | | [address] | | | | + + + + + + | % Monocytes | 6.71Comment: Testing | % | EXTERNAL | | | | performed at [facility];[address] | | LAB | | | | [address];[place] | | | | | | [address] | | | | + + + + + + | % | 0.69Comment: Testing | % | EXTERNAL | | | Eosinophils | performed at [facility];[address] | | LAB | | | | [address];[place] | | | | | | [address] | | | | + + + + + + | % Basophils | 0.33Comment: Testing | % | EXTERNAL | | | | performed at [facility];[address] | | LAB | | | | [address];[place] | | | | | | [address] | | | | + + + + + + | Absolute | 7.64 (H)Comment: Testing | 1.90 - 7.40 | EXTERNAL | | | Segmented | performed at [facility];[address] | K/uL | LAB | | | Neutrophils | [address];[place] | | | | | | [address] | | | | + + + + + + | Absolute | 1.20Comment: Testing | 1.00 - 3.90 | EXTERNAL | | | Lymphocytes | performed at [facility];[address] | K/uL | LAB | | | | [address];[place] | | | | | | [address] | | | | + + + + + + | Absolute | 0.64Comment: Testing | 0.00 - 0.80 | EXTERNAL | | | Monocytes | performed at [facility];[address] | K/uL | LAB | | | | [address];[place] | | | | | | [address] | | | | + + + + + + | Absolute | 0.07Comment: Testing | 0.00 - 0.50 | EXTERNAL | | | Eosinophils | performed at [facility] [place] | K/uL | LAB | | | | [address];[place] | | | | | | [address] | | | | + + + + + + | Absolute | 0.03Comment: Testing | 0.00 - 0.10 | EXTERNAL | | | Basophils | performed at [facility] [place] | K/uL | LAB | | | | [address];[place] | | | | | | [address] | | | | + + + [...] EXTERNAL | | | | performed at [facility] [place];888 | mmol/L | LAB | | | | [address];[place] | | | | | | [address] | | | | + + + + + + | K | 4.0Comment: Testing | 3.5 - 4.9 | EXTERNAL | | | | performed at [facility] [place] | mmol/L | LAB | | | | [address];[place] | | | | | | [address] | | | | + + + + + + | Cl | 105Comment: Testing | 99 - 109 mmol/L | EXTERNAL | | | | performed at [facility] [place];[address] | | LAB | | | | [address];[place] | | | | | | [address] | | | | + + + + + + | CO2 | 25Comment: Testing | 23 - 32 mmol/L | EXTERNAL | | | | performed at [facility] [place];[address] | | LAB | | | | [address];[place] | | | | | | [address] | | | | + + + + + + | Anion Gap | 12Comment: Testing | 5 - 20 mmol/L | EXTERNAL | | | | performed at [facility] [place];[address] | | LAB | | | | [address];[place] | | | | | | [address] | | | | + + + + + + | Glucose, | 114 (H)Comment: Testing | 65 - 99 mg/dL | EXTERNAL | | | Fasting | performed at [facility] [place];[address] | | LAB | | | | [address];[place] | | | | | | [address] | | | | + + + + + + | BUN | 4 (L)Comment: Testing | 8 - 25 mg/dL | EXTERNAL | | | | performed at [facility] [place];[address] | | LAB | | | | [address];[place] | | | | | | [address] | | | | + + + + + + | Creatinine | 0.73Comment: Testing | 0.70 - 1.30 | EXTERNAL | | | | performed at [facility] [place] | mg/dL | LAB | | | | [address];[place] | | | | | | [address] | | | | + + + + + + | BUN/Creatin | 5Comment: Testing | | EXTERNAL | | | ine Ratio | performed at [facility] [place];[address] | | LAB | | | | [address];[place] | | | | | | [address] | | | | + + + + + + | Calcium | 8.3 (L)Comment: Testing | 8.5 - 10.5 | EXTERNAL | | | | performed at [facility] [place] | mg/dL | LAB | | | | [address];[place] | | | | | | [address] | | | | + + + + + + | Protein, | 7.7Comment: Testing | 6.3 - 8.2 g/dL | EXTERNAL | | | Total | performed at [facility] [place];[address] | | LAB | | | | [address];[place] | | | | | | [address] | | | | + + + + + + | Albumin | 3.3 (L)Comment: Testing | 3.6 - 5.0 g/dL | EXTERNAL | | | | performed at [facility] [place];[address] | | LAB | | | | [address];[place] | | | | | | [address] | | | | + + + + + + | Globulin | 4.4Comment: Testing | 1.3 - 4.9 g/dL | EXTERNAL | | | | performed at [facility] [place];[address] | | LAB | | | | [address];[place] | | | | | | [address] | | | | + + + + + + | A/G Ratio | 0.7 (L)Comment: Testing | 1.0 - 2.4 | EXTERNAL | | | | performed at [facility] [place];[address] | | LAB | | | | [address];[place] | | | | | | [address] | | | | + + + + + + | Bilirubin | 0.3Comment: Testing | 0.1 - 1.5 mg/dL | EXTERNAL | | | Total | performed at [facility] [place];[address] | | LAB | | | | [address];[place] | | | | | | [address] | | | | + + + + + + | ALP, | 137 (H)Comment: Testing | 35 - 115 U/L | EXTERNAL | | | External | performed at [facility];[address] | | LAB | | | | [address];[place] | | | | | | [address] | | | | + + + + + + | AST | 37Comment: Testing | 10 - 45 U/L | EXTERNAL | | | | performed at [facility];[address] | | LAB | | | | [address];[place] | | | | | | [address] | | | | + + + + + + | ALT | 37Comment: Testing | 10 - 65 U/L | EXTERNAL | | | | performed at [facility];[address] | | LAB | | | | [address];[place], [place] | | | | | | [address] | | | | + + + [...] | | | | | | at [facility];[address] [facility] | | | | | | Blvd;[place] [address] | | | | + + + [...]
--- OUTSIDE RECORDS SUMMARY | ~2019-09-09 | XMS | Encounter Summary ---
Demographics + + + | Address | [address] | | | [place] [address] | + + + | Home Phone | | + + + | Preferred Language | Unknown | + + + | Marital Status | Single | + + + | Gnosticist Affiliation | Unknown | + + + | Race | White | + + + | Ethnic Group | Not or | + + + Author + + + | Author | [facility] | + + + | Organization | [facility] | + + + | Address [...] Providers + +------+ + | Care Production Officer Name | Role | Phone | [...] | | | | | [place], | | | | | | [place] [address] | | | | | | [phone] | | | +--------+ + + + [...]
--- OUTSIDE RECORDS SUMMARY | ~2019-09-09 | XMS | Encounter Summary ---
Demographics + + + | Address | [address] | | | [place] [address] | + + + | Home Phone | | + + + | Preferred Language | Unknown | + + + | Marital Status | Single | + + + | Temple Affiliation [...] Team Providers + +------+ + | Care Pollution Control Engineer Name | Role | Phone | [...] [facility] | | | | | | [facility] and | | | | | | Counseling [address] | | | | | | [address] [place], | | | | | | [place] [address] | | | | | | [phone] | | | | | | | [...] | | + +---------+ + + | [facility] | | | | | [...] | | + +---------+ + + | [facility] | | | | | [...] | | + +---------+ + + | [facility] | | | | | [...] | | + +---------+ + + | [facility] | | | | | [...]
--- OUTSIDE RECORDS SUMMARY | ~2019-09-09 | XMS | Encounter Summary ---
Demographics + + + | Address | [address] | | | [place] [address] | + + + | Home Phone | | + + + | Preferred Language | Unknown | + + + | Marital Status | Single | + + + | Orthodox Affiliation | Unknown | + + + | Race | White | + + + | Ethnic Group | Not or | + + + Author + + + | Author | [facility] | + + + | Organization | [facility] | + + + | Address [...] Team Providers + +------+ + | Care Button Breaker Operator Name | Role | Phone | + +------+ + | Anny Ennis DO | PCP | Unavailable | + +------+ + Encounter Details +--------+------+ + + + | Date | Type | Department | Care Team | Description | +--------+------+ + + + | 03/13/ | Lab | Laboratory at [facility] | | Cirrhosis (HCC) | | 2009 | | [address] | | | | | | [place], [place] | | | | | | [address] | | | | | | [phone] | | | +--------+------+ + + + [...] [facility] | REGIONAL | | [place] [address] | LABORATORY | | [place] [address] | | + + + + + + + + | Performing | Address | City/State/Zipcode | Phone Number | | Organization | | | | + + + + + | [facility] | [address] | [place] [address] | | | LABORATORY | | | [...] | LABORATORY | | | | at [facility], | | | | | | [place], [place]. | | | | + + + + + + + + | Specimen | + + | Blood - Blood | + + + + + | Narrative | Performed At | + + + | [facility] | [facility] | | [place] [address] | REGIONAL | | [place] [address] | LABORATORY | + + + + + + + + | Performing | Address | City/State/Zipcode | Phone Number | | Organization | | | | + + + + + | [facility] | [address] | [place] [address] | | | LABORATORY | | | [...] | | | | | validated by [facility]. | | | | | | Test performed by: | | | | | | [facility] | | | | | | Services [address] | | | | | | [place] | | | | | | [address] | | | | + + + + + + + + | Specimen | + + | Urine - Urine | + + + + + + + | Performing | Address | City/State/Zipcode | Phone Number | | Organization | | | | + + + + + | [facility] | [address] | [place], [place] | | | [address] [facility] | | [address] | | + + + + + [...] At | + + + | [facility] | [facility] | | [place] [address] | REGIONAL | | [place] [address] | LABORATORY | + + + + + + + + | Performing | Address | City/State/Zipcode | Phone Number | | Organization | | | | + + + + + | [facility] | [address] | [place] [address] | | | LABORATORY | | | [...] At | + + + | [facility] ([facility]) [facility] | [place] | | [place] [address] [place] [facility] | [facility] | | [place] [address] | LABORATORY | + + + + + + + + | Performing | Address | City/State/Zipcode | Phone Number | | Organization | | | | + + + + + | [facility] | [address] | [place] [address] | | | LABORATORY | | | [...] At | + + + | [facility] | [place] | | [facility] [place] [address] | REGIONAL | | [place] [address] | LABORATORY | + + + + + + + + | Performing | Address | City/State/Zipcode | Phone Number | | Organization | | | | + + + + + | [facility] | [address] | [place] [address] | | | LABORATORY | | | [...] by | | | | | | [facility], | | | | | | | | | | | | [address] | | | | | | [place] [address] | | | | | | [phone] | | | | | | | | | | | | [email or web address], | | | | | | [employer] [...] [facility] | [address] | [place], [place] | | | [address] [facility] | | [address] | | + + + + + [...] | + + + | [facility]) [facility] | [place] | | [place] [address] [facility] | DEPARTMENT | | [place] [address] | PATHOLOGY | + + + + + + + + | Performing | Address | City/State/Zipcode | Phone Number | | Organization | | | | + + + + + | [facility] DEPARTMENT OF | [address] | [place] [address] | | | PATHOLOGY | [address] [...] DEPARTMENT OF | [address] | [place] [address] | | | PATHOLOGY | [address] [...] | + + + + + | [facility] | [address] | [place] [address] | | | PATHOLOGY | [address] [...] | + + + + + | [facility] | [address] | [place] [address] | | | PATHOLOGY | [address] | | | + + + + + documented in this encounter Visit Diagnoses + + | Diagnosis | + + | 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
--- OUTSIDE RECORDS SUMMARY | ~2019-09-09 | XMS | Encounter Summary ---
Demographics + + + | Address | [address] | | | [place] [address] | + + + | Home Phone | | + + + | Preferred Language | Unknown | + + + | Marital Status | Single | + + + | Congregational Affiliation [...] Team Providers + +------+ + | Care Package Liner Name | Role | Phone | + [...]
--- OUTSIDE RECORDS SUMMARY | ~2019-09-09 | XMS | Encounter Summary ---
Demographics + + + | Address | [address] | | | [place] [address] | + + + | Home Phone | | + + + | Preferred Language | Unknown | + + + | Marital Status | Single | + + + | Quaker Affiliation [...] Team Providers + +------+ + | Care Senior Ui Web Developer Name | Role | Phone | + [...] | | | | [place], | [place], [place] | | | | | [place] [address] | [address] | | | | | [phone] | | | +--------+ + + + [...]
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
--- OUTSIDE RECORDS SUMMARY | ~2019-09-09 | XMS | Encounter Summary ---
Demographics + + + | Address | [address] | | | [place] [address] | + + + | Home Phone | | + + + | Preferred Language | Unknown | + + + | Marital Status | | + + + | Caodaism Affiliation | Unknown | + + + | Race | Unknown | + + + | Ethnic Group | Unknown | + + + Author + + + | Author | [facility] | | | and [facility] | + + + | Organization | [facility] | | | and [...] Team Providers + +------+ + | Care Staple Processing Machine Operator Name | Role | Phone | + +------+ + PCP | Unavailable | + +------+ + Encounter Details +--------+ + + + + | Date | Type | Department | Care Team | Description | +--------+ + + + + | 05/24/ | Hospital | [facility] | Conversion | Pain | | 2015 | Encounter | CONVERSION [address] | Transaction, | | | | | [address] | Provider Unknown | | | | | [place], [place] | [phone] | | | | | [address] | | | | | | [phone] | | | +--------+ + + + [...]
--- OUTSIDE RECORDS SUMMARY | ~2019-09-09 | XMS | Encounter Summary ---
Demographics + + + | Address | [address] | | | [place] [address] | + + + | Home Phone [...] Team Providers + +------+ + | Care Um Nurse Name | Role | Phone | + +------+ + PCP | Unavailable | + +------+ + Encounter Details +--------+ + + + + | Date | Type | Department | Care Team | Description | +--------+ + + + + | 06/22/ | Hospital | [facility] | Sandip Hall MD | | | 2008 - | Encounter | [facility] | [address] | | | | | MED [address] [place] [address] S | [place] [address] | | | 06/23/ | | [address] | [phone] | | | 2008 | | [place], [place] | | | | | | [address] | Elizabeth Galan MD | | | | | [phone] | [address] | | | | | | [address] [place], | | | | | | [place] [address] | | | | | | [phone] | | +--------+ + + + + [...] MEDICAL HISTORY: The patient is a 48-year-old [place] with a long history of known liver cirrhosis, end-stage liver disease secondary to alcoholism and hepatitis B and history of drug abuse who came into the emergency department in [place] with hepatic encephalopathy, having been at the [facility] visiting with his grandmother, found to [...] needs to get back one to his [facility] clinic and to return to his grandmother. [...] and was discharged to return to his [facility] clinic, which he promises me he will [...] this time until cleared by his primary manager medicare. I spent 46 minutes seeing patient, coordinating discharge, and attempting to claims counsel him into staying. _ TOBIN JAVIER MD D: Yoselyn Jun 23 16:37:54 2008 EST T: Yoselyn Jun 23 23:55:09 2008 EST Authenticated by Tobin Javier MD On 06/24/2009 06:22:14 AM [facility] - 06/23/2009 12:00 AM PDT documented in this enc ounter Progress Notes [facility] - 06/24/2009 12:00 AM PDT [facility] - 06/24/2009 12:00 AM PDT [facility] - 06/24/2009 12:00 AM PDT documented in [...] No acute infiltrate or consolidation. | [facility] | | No apparent pneumothorax is seen. Dictated | | | By: Sagar Phelps M.D. 06/23/2009 10:33:10 AM | | + + + + + + | Narrative | Performed At | + + + | CHEST 1V PORTABLE DATE OF EXAM: 06/22/2009 INDICATION: | [facility] | | -weakness/fatigue FINDINGS: The heart and mediastinal contour | | | appear unremarkable. There is no acute infiltrate or consolidation. | | | There is no apparent pneumothorax or pleural effusion. The | | | lucency in the right lateral sulcus appears related to an artifact. | | | There is mild bony spurring in the AC joint. [facility] EXAM NUMBER: | | | [id number] CHEST 1V [id number] | | + + + + + [...] spurring in the AC joint. | | [facility] EXAM NUMBER: [id number] CHEST 1V [id number] | | IMPRESSION: | | IMPRESSION: No [...]
--- OUTSIDE RECORDS SUMMARY | ~2019-09-09 | XMS | Encounter Summary ---
Demographics + + + | Address | [address] | | | [place] [address] | + + + | Home Phone | | + + + | Preferred Language | Unknown | + + + | Marital Status | Single | + + + | Mormonism Affiliation [...] Team Providers + +------+ + | Care Triple Drum Operator Name | Role | Phone | + +------+ + PCP | Unavailable | + +------+ + Encounter Details +--------+ + + + + | Date | Type | Department | Care Team | Description | +--------+ + + + + | 12/17/ | Abstract | [facility] | Azeem Dietrich | | | 2011 | | [place] [address] [id number] | | | | | [address] | [place], [place] | | | | | Mailcode: [id number] | [address] | | | | | [facility] | [phone] | | | | | and [address], | | | | | | [address] | | | | | | [place], [place] | | | | | | [address] | | | | | | [phone] | | | +--------+ + + + [...]
--- OUTSIDE RECORDS SUMMARY | ~2019-09-09 | XMS | Encounter Summary ---
Demographics + + + | Address | [address] | | | [place] [address] | + + + | Home Phone [...] Team Providers + +------+ + | Care Colorer Hides And Skins Name | Role | Phone | + +------+ + PCP | Unavailable | + +------+ + Encounter Details +--------+ + + + + | Date | Type | Department | Care Team | Description | +--------+ + + + + | 10/11/ | Hospital | [facility] | Chong, | Alcohol abuse; | | 2015 - | Encounter | [facility] [address] | Anthony HENRIQUEZ MD | Comatose ([facility]); | | | | [address] | [phone] | Frequent falls; | | 10/29/ | | [place], [place] | [place] [address] | Seizure ([facility]); | | 2014 | | [address] | [phone] | Alcohol withdrawal | | | | [phone] | | (HCC); Cerebral | | | | | | edema ([facility]); | | | | | | Subdural hematoma, | | | | | | post-traumatic, | | | | | | sequela ([facility]); | | | | | | Traumatic brain | | | | | | injury, closed, | | | | | | sequela ([facility]) | +--------+ + [...] 1127 Date of Service: 11/12/141123 Status: Signed Production Welder: Cecilio Bravo MD (Physician) [facility] Service: Hospitalist Discharge Summary Date of [...] and multiple falls. Per ED report from [facility]: he was drinking earlier today at home and fell twice. He went to bed and then he was noted to be having what they thought was seizure activity and th ey could not wake him and called EMS. He was taken to the ED at [facility] in [place] then transferred to the ED here for [...] and multiple falls who was transferred from [facility] due to a fall, seizures . CT [...] placement to improve s trength and mobility. wastewater process engineer are working on finding placement which may take few days, however if accepted then can be discharged for rehabilitation Events Overnight: 2/2 pt still somewhat confused, thought he was in [place]. He knew that he fell, but didn [...] scussion. CM routed updated medical notes to [facility] and [facility]. PT recommending SNF. Lewis Christy spoke w/ Tyler at [facility] and Mary Beth at [facility], efaxed updated medical information, bot h are [...] at this time; planned for placement in [place] once patient is off sitter for 48 hrs. Otherwise patient continues to interact appropriately at this time and no impulsiveness is shown. Patient is mostly in chair or in bed and sleeping. 10/27 pt is alert today, no complications. Continue with PT. Pt without sitter. Pending place ment still. 10/28 planning re-evaluation of patient's status for admission to [place]. Pt otherwise is not impulsive, mostly calm [...] FOR BLEED; Surgeon: Anthony Chong MD; Location: [facility] IN OR; Service: Neurosurgery; Laterality: Right; Craniectomy Right 10/11/2014 Procedure: CRANIECTOMY; Surgeon: Anthony Chong MD; Location: [facility] OR; Ser vice: Neurosurgery; Laterality: Right; Allergies [...] on file. Follow up: Anthony Chong MD [address] [place] [address] Call right away to schedule an appointment [...] are the prescriptions that you need to orange picker. You may get the following medications [...] 10/29/141122 Date of Service: 10/29/141122 Status: Signed Production Welder: Cecilio Bravo MD (Physician) [facility] Service: Hospitalist Progress Note Hospital Day: LOS: 18 days Post-Op Day: 11 Days Post-Op SUBJECTIVE Patient Summary: Per ICU note: The patient is a 53 y.o. male with significant past medical history of chronic alcohol abus e and multiple falls. Per ED report from [facility]: he was drinking earlier today at home and fell twice. He went to bed and then he was noted to be having what they thought was seizure activity and th ey could not wake him and called EMS. He was taken to the ED at [facility] in [place] a nd then [...] and multiple falls who was transferred from [facility] due to a fall, seizures . CT [...] placement to improve s trength and mobility. wastewater process engineer are working on finding placement which may take few days, however if accepted then can be discharged for rehabilitation Events Overnight: 2/2 pt still somewhat confused, thought he was in [place]. He knew that he fell, but didn [...] Oct 17 2014 7:38AM Referring Provider Line: [phone] ID: [id number] Ct Head Without Contrast 10/16/2014 [...] Oct 16 2014 6:08AM Referring Provider Line: [phone] E ID: [id number] PROBLEM LIST ASSESSMENT & [...] iscussion. CM routed updated medical notes to [facility] and [facility]. PT recommending SNF. CM spoke w/ Tyler at [facility] and Mary Beth at [facility], efaxed updated medical information, grace th are [...] at this time; planned for placement in [place] once patient is off sitter for 48 hrs. Otherwise patient continues to interact appropriately at this time and no impulsiveness is shown. Patient is mostly in chair or in bed and sleeping. 10/27 pt is alert today, no complications. Continue with PT. Pt without sitter. Pending plac ement still. 10/28 planning re-evaluation of patient's status for admission to [place]. Pt otherwise is not impulsive, mostly calm [...] this encounter Progress Notes Emilie Sutherland MS CCC-PEGA DEVELOPER - 10/29/2014 3:00 PM PSTFormatting of this note might be diffe rent from the original. Therapy Progress Note by Emilie Sutherland MS CCC-PEGA DEVELOPER at 10/29/14 1500 Author: Emilie Sutherland MS CCC-PEGA DEVELOPER Service: (none) Author Type: Speech Therapist Filed: 10/29/14 1507 Date of Service: 10/29/14 1500 Status: Signed Production Welder: Emilie Sutherland MS CCC-PEGA DEVELOPER (Speech Therapist) 10/29/14 1500 PEGA DEVELOPER Last Visit PEGA DEVELOPER Received On 10/29/14 Requires PEGA DEVELOPER Follow Up No pt is being discharged from the hospital shortly. onversion T ransaction, Provider Unknown - 10/29/2014 11:18 AM PSTFormatting of this note might be diffe rent from the original. Case Management by TABITHA Armstrong at 10/29/14 1118 Author: TABITHA Armstrong Service: (none) Author Type: Residential Advisor Filed: 10/29/14 1119 Date of Service: 10/29/14 1118 Status: Signed Production Welder: TABITHA Armstrong (Residential Advisor) TELMA faxed MD's discharge orders to [facility] and arranged for a copy of pt's chart to be sent with pt. TELMA arranged for ambulance transport due to pt's confusion and risk of re-in jury of Subdural Hematoma/Craniotomy . CM notified pt & family of the discharge time. Pt had no other resource concerns. Discharge Plan: [facility] Jem NEILSW onver alem Transaction, Provider Unknown - 10/29/2014 10:35 AM PST Therapy Progress Note by ИВАН Elaine at 10/29/14 1035 Author: ИВАН Elaine Service: (none) Author Type: Massage Therapist Filed: 10/29/14 1035 Date of Service: 10/29/14 1035 Status: Signed Production Welder: ИВАН Elaine (Massage Therapist) 10/29/14 1035 Massage Therapy Interventions Locations Back;Neck;Shoulder Massage Therapy Technique Effleurage;Petrissage;Hungarian massage Response to treatment Decreased muscle tension onver alem Transaction, Provider Unknown - 10/29/2014 10:05 AM PST Nurse Progress Note by Angelina Meade RN at 10/29/14 1005 Author: Angelina Meade RN Service: (none) Author Type: Registered Nurse Filed: 10/29/14 1044 Date of Service: 10/29/14 100 Status: Signed Production Welder: Angelina Meade RN (Registered Nurse) Report given to MICHELL Corral at [facility] orcas Cintron, PT - 10/29/2014 9:20 AM PSTFormatting of this note might be different from t he original. Therapy Progress Note by Dorcas Holguin PT at 10/29/14919 Author: Dorcas Holguin PT Service: (none) Author Type: Physical Therapist Filed: 10/29/14 1112 Date of Service: 10/29/14919 Status: Signed Production Welder: Dorcas Holguin PT (Physical Therapist) 10/29/14919 PT Last Visit PT Received On 10/29/14 Reason for Treatment Brain injury Requires PT Follow Up Yes Follow up PT Only? No Focus for Next Treatment Formal Balance Assessment PT Eval/Reassessment Date 10/29/14 Assistance Required 2 person Security Operations Center Operator Needed No Precautions Other Precautions helmet when [...] Barriers to Discharge Physical Deficits Impacting Functional [place];Self-care Deficit s Impacting Functional [place] Recommendation Comments Pt may be discharging to SNF today if ready. Cecilio Briones MD - 10/28/2014 3:03 PM PST . Progress Notes by Cecilio Bravo MD at 10/28/14 1501 Author: Cecilio Bravo MD Service: Hospitalist Author Type: Physician Filed: 10/28/14 1509 Date of Service: 10/28/14 150 Status: Signed Production Welder: Cecilio Bravo MD (Physician) [facility] Service: Hospitalist Progress Note Hospital Day: LOS: 17 days Post-Op Day: 11 Days Post-Op SUBJECTIVE Patient Summary: Per ICU note: The patient is a 53 y.o. male with significant past medical history of chronic alcohol abus e and multiple falls. Per ED report from [facility]: he was drinking earlier today at home and fell twice. He went to bed and then he was noted to be having what they thought was seizure activity and th ey could not wake him and called EMS. He was taken to the ED at [facility] in [place] then transferred to the ED here for [...] and multiple falls who was transferred from [facility] due to a fall, seizures . CT [...] placement to improve s trength and mobility. wastewater process engineer are working on finding placement which may [...] Oct 17 2014 7:38AM Referring Provider Line: [phone] ID: [id number] Ct Head Without Contrast 10/16/2014 [...] Oct 16 2014 6:08AM Referring Provider Line: [phone] E ID: [id number] PROBLEM LIST ASSESSMENT & [...] iscussion. CM routed updated medical notes to [facility] and [facility]. PT recommending SNF. CM spoke w/ Tyler at [facility] and Mary Beth at [facility], efaxed updated medical information, grace th are [...] at this time; planned for placement in [place] once patient is off sitter for 48 hrs. Otherwise patient continues to interact appropriately at this time and no impulsiveness is shown. Patient is mostly in chair or in bed and sleeping. 10/27 pt is alert today, no complications. Continue with PT. Pt without sitter. Pending plac ement still. 10/28 planning re-evaluation of patient's status for admission to [place]. Pt otherwise is not impulsive, mostly calm [...] Bravo MD 10/28/2014 Maria Teresa Dhillon MA, CCC-PEGA DEVELOPER - 10/27/2014 4:14 PM PST Therapy Progress Note by MS KT Hayes-PEGA DEVELOPER at 10/27/14 4294 Author: MS KT Hayes-PEGA DEVELOPER Service: (none) Author Type: Speech Therapist Filed: 10/27/14 0278 Date of Service: 10/27/141613 Status: Signed Production Welder: MS KT Hayes-PEGA DEVELOPER (Speech and Language Pathologist) 10/27/14 1600 Swallowing Assessment Eval Swallowing Treatment Yes Consistencies Consistencies Assessed Yes Thin Presentation Cup;Self Fed Oral Phase Thin WFL Pharyngeal Phase Cough - immediate;Delayed swallow initiated;Decreased laryngeal elevation upon palpation Beulah Presentation Self Fed;Cup Oral WFL Pharyngeal Phase No overt signs or symptoms of aspiration Dysphagia Mechanically Altered Presentation Spoon Oral Phase WFL Pharyngeal Phase No overt signs or symptoms of aspiration;Cough - Delayed (pt required cues to swallow - pt very agitated during trials) Recommendations Liquids Consistency Recommendations Beulah thick Diet Consistency Recommendation Pureed Recommendations Dysphagia [...] Goals Pt will have safe/efficient oral intake Beulah thick liquids;Puree diet;With feeding sherley t;Goal progressing Pt will tolerate diet upgrade trials With 1:1 supervision;Goal progressing onver alem Transaction, Provider Unknown - 10/27/2014 2:10 PM PST Therapy Progress Note by Katherin Garay PT at 10/27/14 3335 Author: Katherin Garay PT Service: (none) Author Type: Physical Therapist Filed: 10/27/14 4192 Date of Service: 10/27/141409 Status: Signed Production Welder: Katherin Bohnet, PT (Physical Therapist) 10/27/14 1410 PT Last Visit PT Received On 10/27/14 Reason for Treatment Brain injury (TBI R SDH) Requires PT Follow Up Yes Follow up PT Only? Yes Assistance Required 2 person Security Operations Center Operator Needed No Precautions Other Precautions helmet when [...] Barriers to Discharge Physical Deficits Impacting Functional [place];Self-care Deficit s Impacting Functional [place] onver alem Willard, Provider Unknown - 10/27/2014 11:15 AM PST Therapy Progress Note by CADEN Mcgowan at 10/27/14 1115 Author: CADEN Mcgowan Service: (none) Author Type: Occupational Therapist Filed: 10/27/14 1230 Date of Service: 10/27/14 1115 Status: Signed Production Welder: CADEN Mcgowan (Occupational Therapist) 10/27/14 1115 OT Last Visit OT Received On 10/27/14 Reason for Treatment Brain injury Requires OT Follow Up Yes Assistance Required 2 person Security Operations Center Operator Needed No Family/Caregiver Present No Precautions Other [...] Acute OT;SNF Equipment Recommended Shower chair with back;Nut Feeder;HHSH;Bedside commode Education Completed: Education Topic: ADLs, fine [...] commode, shower chair, hand held shower head, outcomes manager Cognitive deficits impacting functional independence-would benefit from [...] 1402 Date of Service: 10/27/14807 Status: Signed Production Welder: Cecilio Bravo MD (Physician) [facility] Service: Hospitalist Progress Note Hospital Day: LOS: 16 days Post-Op Day: 11 Days Post-Op SUBJECTIVE Patient Summary: Per ICU note: The patient is a 53 y.o. male with significant past medical history of chronic alcohol abus e and multiple falls. Per ED report from [facility]: he was drinking earlier today at home and fell twice. He went to bed and then he was noted to be having what they thought was seizure activity and th ey could not wake him and called EMS. He was taken to the ED at [facility] in [place] a nd then transferred to the ED [...] and multiple falls who was transferred from [facility] due to a fall, seizures . CT [...] placement to improve s trength and mobility. wastewater process engineer are working on finding placement which may take few days, however if accepted then can be discharged for rehabilitation Events Overnight: 10/22 pt still somewhat confused, thought he was in [place]. He knew that he fell, but didn [...] Oct 17 2014 7:38AM Referring Provider Line: [phone] ID: [id number] Ct Head Without Contrast 10/16/2014 [...] Oct 16 2014 6:08AM Referring Provider Line: [phone] E ID: [id number] PROBLEM LIST ASSESSMENT & [...] iscussion. CM routed updated medical notes to [facility] and [facility]. PT recommending SNF. CM spoke w/ Tyler at [facility] and Mary Beth at [facility], efaxed updated medical information, grace th are [...] this time for planned for placement in [place] once patient is off sitter for 48 [...] Date of Service: 10/26/14 1631 Status: Signed Production Welder: CADEN Narvaez (Occupational Therapist) 10/26/14 1600 Time Calculation Start Time 1600 Stop Time 1615 Time Calculation (min) 15 min $ ADLs/IADLs ADLS/IADLS Charges Home management training $Home Management Training 8-22 mins Therapy Time 15 Minutes 10/26/14 1600 OT Last Visit OT Received On 10/26/14 Reason for Treatment Brain injury Requires OT Follow Up Yes Assistance Required 2 person Security Operations Center Operator Needed No Family/Caregiver Present No Precautions Other [...] his mouth. about 4 rounds of gentle rcnaj-hozn-mk awakened. Activity Tolerance Activity Tolerance Patient limited [...] elevated Grooming Final Score 5 Comprehension (in [place] language) 3 - Patient requires moderate assist to comprehend DUE TO? needing parts of sentences repea stephenie 2 - Patient requires maximal assist to comprehend DUE TO? only understanding simple express ions Comprehension Final Score 2 - Maximal assistance Expression (in [place] language) 2 - Patient requires maximal [...] Date of Service: 10/26/14 1554 Status: Signed Production Welder: CADEN Narvaez (Occupational Therapist) Chart opened in error onversion Transa ction, Provider Unknown - 10/26/2014 1:34 PM PST Progress Notes by Anna Venegas RD at 10/26/14 1334 Author: Anna Venegas RD Service: (none) Author Type: Registered Dietitian Filed: 10/26/14 1347 Date of Service: 10/26/14 1334 Status: Signed Production Welder: Anna Venegas RD (Doyle Dietitian) Nutrition Follow-Up [...] on current weight of 85 kg Kcal: 0846-7567 (25-30 kcal/kg) Protein: 102-128 gr (1.2-1.5 gr/kg) [...] (none) Author Type: Physical Therapist Filed: 10/26/14 8416 Date of Service: 10/26/14 1313 Status: Signed Production Welder: Thalia Simmons PT (Physical Therapist) 10/26/14 1313 [...] 10/26/148 Date of Service: 10/26/141017 Status: Signed Production Welder: ИВАН Elaine (Massage Therapist) 10/26/14 1018 Massage Therapy Interventions Locations Back;Neck;Shoulder Massage Therapy Technique Effleurage;Petrissage;Hungarian massage Response to treatment Decreased muscle tension;Decreased pain tegNatalee carmichael MS CCC-PEGA DEVELOPER - 10/26/2014 10:14 AM PST Therapy Progress Note by Natalee Plata MS CCC-PEGA DEVELOPER at 10/26/14 1014 Author: Natalee Plata MS CCC-PEGA DEVELOPER Service: (none) Author Type: Speech and Language Pathologist Filed: 10/26/14 1014 Date of Service: 10/26/144 Status: Signed Production Welder: Natalee Plata MS CCC-PEGA DEVELOPER (Speech and Language Pathologist) 10/26/14 0945 Swallowing Assessment Eval Swallowing Treatment Yes Initial Swallow Assessment Behavior/Cognition Cooperative;Neuro impairment Patient Positioning Upright in chair Consistencies Consistencies Assessed Yes Thin Presentation Cup;Self Fed Oral Phase Thin WFL Pharyngeal Phase Cough - immediate Beulah Presentation Cup;Self Fed Oral WFL Pharyngeal Phase No overt signs or symptoms of aspiration Dysphagia Mechanically Altered Presentation Spoon Oral Phase WFL Pharyngeal Phase No overt signs or symptoms of aspiration Dysphagia Advanced Presentation Spoon Oral Phase WFL Pharyngeal Phase No overt signs or symptoms of aspiration Recommendations Liquids Consistency Recommendations Beulah thick Diet Consistency Recommendation Pureed Recommendations Dysphagia [...] treatment;Continue with current plan Natalee Plata MS CCC-PEGA DEVELOPER ljaylon, Me shari Baumann PT - 10/26/2014 8:58 AM PSTFormatting of this note might be different from the madelin booker. Therapy Progress Note by Thalia Simmons PT at 10/26/14 0858 Author: Thalia Simmons PT Service: (none) Author Type: Physical Therapist Filed: 10/26/14 0937 Date of Service: 10/26/14857 Status: Signed Production Welder: Thalia Simmons PT (Physical Therapist) 10/26/14 0858 PT Last Visit PT Received On 10/26/14 Reason for Treatment Brain injury (SDH. bone flap removed) Requires PT Follow Up Yes Follow up PT Only? Yes Assistance Required 2 person Security Operations Center Operator Needed No Precautions Other Precautions helmet on [...] Barriers to Discharge Physical Deficits Impacting Functional [place];Self-care Deficit s Impacting Functional [place];Neurological Impairment (see comment);Pain VS: 117/82 87 98% ra Cecilio Briones MD - 10/26/2014 8:09 AM PST Progress Notes by Cecilio Bravo MD at 10/26/14808 Author: Cecilio Bravo MD Service: Hospitalist Author Type: Physician Filed: 10/26/14 1844 Date of Service: 10/26/14808 Status: Signed Production Welder: Cecilio Bravo MD (Physician) [facility] Service: Hospitalist Progress Note Hospital Day: LOS: 15 days Post-Op Day: 11 Days Post-Op SUBJECTIVE Patient Summary: Per ICU note: The patient is a 53 y.o. male with significant past medical history of chronic alcohol abus e and multiple falls. Per ED report from [facility]: he was drinking earlier today at home and fell twice. He went to bed and then he was noted to be having what they thought was seizure activity and th ey could not wake him and called EMS. He was taken to the ED at [facility] in [place] a nd then [...] and multiple falls who was transferred from [facility] due to a fall, seizures . CT [...] placement to improve s trength and mobility. wastewater process engineer are working on finding placement which may take few days, however if accepted then can be discharged for rehabilitation Events Overnight: 2/ pt still somewhat confused, thought he was in [place]. He knew that he fell, but didn [...] Oct 17 2014 7:38AM Referring Provider Line: [phone] ID: [id number] Ct Head Without Contrast 10/16/2014 [...] Oct 16 2014 6:08AM Referring Provider Line: [phone] E ID: [id number] PROBLEM LIST ASSESSMENT & [...] iscussion. CM routed updated medical notes to [facility] and [facility]. PT recommending SNF. CM spoke w/ Tyler at [facility] and Mary Beth at [facility], efaxed updated medical information, grace th are [...] this time for planned for placement in [place] once patient is off sitter for 48 [...] Notes by Cecilio Bravo MD at 10/25/14 7776 Author: Cecilio Bravo MD Service: Hospitalist Author Type: Physician Filed: 10/25/14 3394 Date of Service: 10/25/141623 Status: Signed Production Welder: Cecilio Bravo MD (Physician) [facility] Service: Hospitalist Progress Note Hospital Day: LOS: 14 days Post-Op Day: 11 Days Post-Op SUBJECTIVE Patient Summary: Per ICU note: The patient is a 53 y.o. male with significant past medical history of chronic alcohol abus e and multiple falls. Per ED report from [facility]: he was drinking earlier today at home and fell twice. He went to bed and then he was noted to be having what they thought was seizure activity and th ey could not wake him and called EMS. He was taken to the ED at [facility] in [place] a nd then transferred to the ED [...] and multiple falls who was transferred from [facility] due to a fall, seizures . CT [...] placement to improve s trength and mobility. wastewater process engineer are working on finding placement which may [...] Oct 17 2014 7:38AM Referring Provider Line: [phone] ID: [id number] Ct Head Without Contrast 10/16/2014 [...] Oct 16 2014 6:08AM Referring Provider Line: [phone] E ID: [id number] PROBLEM LIST ASSESSMENT & [...] iscussion. CM routed updated medical notes to [facility] and [facility]. PT recommending SNF. CM spoke w/ Tyler at [facility] and Mary Beth at [facility], efaxed updated medical information, grace th are [...] Cecilio Bravo MD 10/25/2014 Lin Richardson MS CCC-PEGA DEVELOPER - 10/25/2014 3:31 PM PST Therapy Progress Note by Emilie Sutherland MS CCC-PEGA DEVELOPER at 10/25/14 1531 Author: Emilie Sutherland MS CCC-PEGA DEVELOPER Service: (none) Author Type: Speech Therapist Filed: 10/25/14 1532 Date of Service: 10/25/14 1531 Status: Signed Production Welder: Emilie Sutherland MS CCC-PEGA DEVELOPER (Speech Therapist) 10/25/14 1531 PEGA DEVELOPER Last Visit PEGA DEVELOPER Received On 10/25/14 Requires PEGA DEVELOPER Follow Up Unavailable (pt asleep and has [...] Date of Service: 10/25/14 1145 Status: Signed Production Welder: Trina Maldonado PT (Physical Therapist) 10/25/14 1145 PT Last Visit PT Received On 10/25/14 Reason for Treatment Brain injury (right SDH) Requires PT Follow Up Yes Follow up PT Only? Yes Assistance Required 2 person Security Operations Center Operator Needed No Precautions Other Precautions helmet for [...] Author: TABITHA Armstrong Service: (none) Author Type: Residential Advisor Filed: 10/25/14 1003 Date of Service: 10/25/14 1002 Status: Signed Production Welder: TABITHA Armstrong (Residential Advisor) CM received a phone call from Loan at [facility] who agreed to accept pt once he dem onstrates he does not require a sitter for 48hrs. Jem NOEL onver alem Transaction, Provider Unknown - 10/24/2014 2:43 PM PST Case Management by TABITHA Armstrong at 10/24/14 1443 Author: TABITHA Armstrong Service: (none) Author Type: Residential Advisor Filed: 10/24/14 4391 Date of Service: 10/24/14 0283 Status: Signed Production Welder: TABITHA Armstrong (Residential Advisor) CM phoned both [facility] to see if they can accept pt. [facility] declined to accept pt. [facility] is still considering him. CM faxed a referral to [facility] as well. Jem NOEL Camille Montaño MD - 10/24/2014 2:00 PM PSTFormatting of this note might be different from marylou cook original. Progress Notes by Cecilio Bravo MD at 10/24/14 1400 Author: Cecilio Bravo MD Service: Hospitalist Author Type: Physician Filed: 10/24/14 1401 Date of Service: 10/24/14 1400 Status: Signed Production Welder: Cecilio Bravo MD (Physician) [facility] Service: Hospitalist Progress Note Hospital Day: LOS: 13 days Post-Op Day: 11 Days Post-Op SUBJECTIVE Patient Summary: Per ICU note: The patient is a 53 y.o. male with significant past medical history of chronic alcohol abus e and multiple falls. Per ED report from [facility]: he was drinking earlier today at home and fell twice. He went to bed and then he was noted to be having what they thought was seizure activity and th robbie could not wake him and called EMS. He was taken to the ED at [facility] in [place] a nd then [...] and multiple falls who was transferred from [facility] due to a fall, seizures . CT [...] placement to improve s trength and mobility. wastewater process engineer are working on finding placement which may take few days, however if accepted then can be discharged for rehabilitation Events Overnight: 2/2 pt still somewhat confused, thought he was in [place]. He knew that he fell, but didn [...] Oct 17 2014 7:38AM Referring Provider Line: [phone] ID: [id number] Ct Head Without Contrast 10/16/2014 [...] Oct 16 2014 6:08AM Referring Provider Line: [phone] E ID: [id number] PROBLEM LIST ASSESSMENT & [...] iscussion. CM routed updated medical notes to [facility] and [facility]. PT recommending SNF. CM spoke w/ Tyler at [facility] and Mary Beth at [facility], efaxed updated medical information, grace th are [...] MD 10/24/2014 ovarbritni ospina, Jessica Christy MA, CCC-PEGA DEVELOPER - 10/24/2014 11:48 AM PST Therapy Progress Note by Jessica Headley MA CCC-PEGA DEVELOPER at 10/24/14 1148 Author: Jessica Headley MA CCC-PEGA DEVELOPER Service: (none) Author Type: Speech and Language Pathologist Filed: 10/24/14 1148 Date of Service: 10/24/14 1148 Status: Signed Production Welder: Jessica Headley MA CCC-PEGA DEVELOPER (Speech and Language Pathologist) 10/24/14 1123 Swallowing Assessment Eval Swallowing Treatment Yes Initial Swallow Assessment Behavior/Cognition Cooperative;Alert Consistencies Consistencies Assessed Yes Thin Presentation Cup;Spoon Oral Phase Thin WFL Pharyngeal Phase Cough - immediate (immediate coughing with thins via cup) Beulah Presentation Cup;Self Fed Oral WFL Pharyngeal Phase No overt signs or symptoms of aspiration Puree Presentation Spoon Oral Phase WFL Pharyngeal No overt signs or symptoms of aspiration;Delayed Swallow Recommendations Liquids Consistency Recommendations Beulah thick Diet Consistency Recommendation Pureed Recommendations Dysphagia [...] Goals Pt will have safe/efficient oral intake Beulah thick liquids;Puree diet;With feeding sherley t;Goal progressing Pt will tolerate diet upgrade trials With 1:1 supervision;Goal progressing onver alem Willard, Provider Unknown - 10/24/2014 10:07 AM PST Therapy Progress Note by ИВАН Elaine at 10/24/14 1007 Author: ИВАН Elaine Service: (none) Author Type: Massage Therapist Filed: 10/24/14 1007 Date of Service: 10/24/14 1007 Status: Signed Production Welder: ИВАН Elaine (Massage Therapist) 10/24/14 1007 Massage Therapy Interventions Locations Back;Neck;Shoulder Massage Therapy Technique Effleurage;Petrissage;Hungarian massage Response to treatment Decreased muscle tension Camille Montaño MD - 10/23/2014 4:38 PM PSTFormatting of this note might be different from th e original. Progress Notes by Cecilio Bravo MD at 10/23/14 1638 Author: Cecilio Bravo MD Service: Hospitalist Author Type: Physician Filed: 10/23/14 1641 Date of Service: 10/23/14 1638 Status: Signed Production Welder: Cecilio Bravo MD (Physician) [facility] Service: Hospitalist Progress Note Hospital Day: LOS: 12 days Post-Op Day: 11 Days Post-Op SUBJECTIVE Patient Summary: Per ICU note: The patient is a 53 y.o. male with significant past medical history of chronic alcohol abus e and multiple falls. Per ED report from [facility]: he was drinking earlier today at home and fell twice. He went to bed and then he was noted to be having what they thought was seizure activity and th ey could not wake him and called EMS. He was taken to the ED at [facility] in [place] a nd then transferred to the ED [...] and multiple falls who was transferred from [facility] due to a fall, seizures . CT [...] placement to improve s trength and mobility. wastewater process engineer are working on finding placement which may take few days, however if accepted then can be discharged for rehabilitation Events Overnight: 2/2 pt still somewhat confused, thought he was in [place]. He knew that he fell, but didn [...] Oct 17 2014 7:38AM Referring Provider Line: [phone] ID: [id number] Ct Head Without Contrast 10/16/2014 [...] Oct 16 2014 6:08AM Referring Provider Line: [phone] E ID: [id number] PROBLEM LIST ASSESSMENT & [...] iscussion. CM routed updated medical notes to [facility] and [facility]. PT recommending SNF. CM spoke w/ Tyler at [facility] and Mary Beth at [facility], efaxed updated medical information, grace th are [...] Management by Yeimi Ruiz RN at 10/23/14 7707 Author: Yeimi Ruiz RN Service: (none) Author Type: Registered Nurse Filed: 10/23/14 1640 Date of Service: 10/23/14 5863 Status: Signed Production Welder: Yeimi Ruiz RN (Registered Nurse) CM received a call from Sherry who is the Community Health Nurse from the [facility]. ([phone] and fax [phone]) She states that she can assist with [...] (none) Author Type: Physical Therapist Filed: 10/23/14 9109 Date of Service: 10/23/14 1140 Status: Signed Production Welder: Amara Duran PT (Physical Therapist) 10/23/14 1140 PT Last Visit PT Received On 10/23/14 Reason for Treatment Brain injury (right SDH) Requires PT Follow Up Yes Follow up PT Only? Yes Focus for Next Treatment Formal Balance Assessment;Bed Mobility Technique;Transfer Techniqu e Assistance Required 2 person Security Operations Center Operator Needed No Precautions Other Precautions kye for [...] Barriers to Discharge Physical Deficits Impacting Functional [place] Recommendation Comments Pt. continues to require maximal assist for all mobility needs. Sebastian l need further skilled PT to address deficits prior to return home. onver Larissa Carey Unknown - 10/23/2014 11:29 AM PST Therapy Progress Note by ИВАН Poole at 10/23/14 1129 Author: ИВАН Poole Service: (none) Author Type: Massage Therapist Filed: 10/23/14 1130 Date of Service: 10/23/14 1129 Status: Signed Production Welder: ИВАН Poole (Massage Therapist) 10/23/14 1100 Massage Therapy Interventions Locations Back;Neck;Shoulder Massage Therapy Technique Effleurage;Petrissage;Hungarian massage;Trigger point Response to treatment Decreased pain;Decreased [...] 10/22/141825 Date of Service: 10/22/141810 Status: Signed Production Welder: Cecilio Bravo MD (Physician) [facility] Service: Hospitalist Progress Note Hospital Day: LOS: 11 days Post-Op Day: 11 Days Post-Op SUBJECTIVE Patient Summary: Per ICU note: The patient is a 53 y.o. male with significant past medical history of chronic alcohol abus e and multiple falls. Per ED report from [facility]: he was drinking earlier today at home and fell twice. He went to bed and then he was noted to be having what they thought was seizure activity and th ey could not wake him and called EMS. He was taken to the ED at [facility] in [place] a nd then transferred to the ED [...] and multiple falls who was transferred from [facility] due to a fall, seizures . CT [...] placement to improve s trength and mobility. wastewater process engineer are working on finding placement which may take few days, however if accepted then can be discharged for rehabilitation Events Overnight: 2/ pt still somewhat confused, thought he was in [place]. He knew that he fell, but didn [...] Oct 17 2014 7:38AM Referring Provider Line: [phone] ID: [id number] Ct Head Without Contrast 10/16/2014 [...] Oct 16 2014 6:08AM Referring Provider Line: [phone] E ID: [id number] PROBLEM LIST ASSESSMENT & [...] iscussion. CM routed updated medical notes to [facility] and [facility]. PT recommending SNF. CM spoke w/ Tyler at [facility] and Mary Beth at [facility], efaxed updated medical information, grace th are [...] Cecilio Bravo MD 10/22/2014 Lin Richardson, MS CCC-PEGA DEVELOPER - 10/22/2014 3:22 PM PST Therapy Progress Note by Emilie Sutherland MS CCC-PEGA DEVELOPER at 10/22/14 1522 Author: Emilie Sutherland MS CCC-PEGA DEVELOPER Service: (none) Author Type: Speech Therapist Filed: 10/22/14 1522 Date of Service: 10/22/14 1522 Status: Signed Production Welder: Emilie Sutherland MS CCC-PEGA DEVELOPER (Speech Therapist) 10/22/14 1380 PEGA DEVELOPER Last Visit PEGA DEVELOPER Received On 10/22/14 Requires PEGA DEVELOPER Follow Up Unavailable (attempted pt just given pain meds, very tired) Attempted to do trials, however pt every difficulty to keep wake. onversion T ransaction, Provider Unknown - 10/22/2014 3:15 PM PSTFormatting of this note might be diffe rent from the original. Case Management by TABITHA Dejesus at 10/22/14 1515 Author: TABITHA Dejesus Service: (none) Author Type: Department Supervisor Filed: 10/22/14 1527 Date of Service: 10/22/14 1515 Status: Addendum Production Welder: TABITHA Dejesus (Department Supervisor) Related Notes: Original Note by TABITHA Dejesus (Department Supervisor) filed at 10/22/14 1518 CM attempted to meet pt for d/c planning. CM could not arouse pt for discussion. CM route d updated medical notes to [facility] and [facility]. PT recommending SNF. CM spoke w/ Tyler at [facility] and Mary Beth at [facility], efaxed updated medical information, both are looking [...] Date of Service: 10/22/14 1435 Status: Addendum Production Welder: Jennifer Alberts RD (Registered Dietitian) Related Notes: [...] time; Cr .65 (L). Nutrition-focused physical findings: PEGA DEVELOPER following for dysphagia. Diet order/current intake: Pureed, [...] offered daily. Recommendations: 1. Continue diet per PEGA DEVELOPER. 2. Magic cups with meal trays. 3. Monitor pt's weight. 4. Offer high calorie foods on meal trays. Monitoring: Will follow up in 4 days per nutrition protocol. Jennifer Alberts MS, record label intern, 10/22/14. onver alem Transaction, Provider Unknown - 10/22/2014 9:56 AM PST Therapy Progress Note by ИВАН Elaine at 10/22/14955 Author: ИВАН Elaine Service: (none) Author Type: Massage Therapist Filed: 10/22/1456 Date of Service: 10/22/14955 Status: Signed Production Welder: Pelon M Bryner, LMP (Massage Therapist) 10/22/14 [...] 1104 Date of Service: 10/22/14899 Status: Signed Production Welder: Dorcas Holguin PT (Physical Therapist) 10/22/14899 PT Last Visit PT Received On 10/22/14 Reason for Treatment (R SDH) Requires PT Follow Up Yes Follow up PT Only? Yes Focus for Next Treatment Formal Balance Assessment;Bed Mobility Technique;Transfer Techniqu e PT Eval/Reassessment Date 10/22/14 Assistance Required 2 person Security Operations Center Operator Needed No Precautions Other Precautions helmet when [...] oriented to self also remembers RN and SILK WASHING MACHINE OPERATOR;s name. Bed Mobility Rolling Moderate [...] advance LLE however leg neal) Assistive Device (PRECISION LATHE OPERATOR on 2 therapists) Static Sitting Balance Static [...] 1411 Date of Service: 10/21/14845 Status: Addendum Production Welder: Travon Mitchell MD (Physician) Related Notes: Original Note by Travon Mitchell MD (Physician) filed at 10/21/14 14 07 [facility] Service: Hospitalist Progress Note Tony Edouardcharlene 53 y.o. [id number] 438/[id number] male PER PT NONE Hospital Day: LOS: 10 days SUBJECTIVE Patient Summary: Patient is a 53 year old male with past medical history of Chronic Alcohol Abuse, Dependenc e and multiple falls who was transferred from [facility] due to a fall, seizures . CT [...] placement to improve s trength and mobility. wastewater process engineer are working on finding placement which may [...] acute distr ess. HEENT: Head: S/P Craniotomy. Rainelle at midline and temporo parietoccipital area of [...] and followed by Dr. Nj from [facility]. He is making slow progress and [...] plans to a SNF for rehabilitation. manager community development is working on placement which cou ld be challenging due to [place] Medicaid. His insurance may contribute in the [...] (none) Author Type: Occupational Therapist Filed: 10/20/14 153 Date of Service: 10/20/14 1533 Status: Signed Production Welder: CADEN Narvaez (Occupational Therapist) 10/20/14 1500 OT [...] 1506 Date of Service: 10/20/14922 Status: Signed Production Welder: Travon Mitchell MD (Physician) [facility] Service: Hospitalist Progress Note Tony Fortune 53 y.o. [id number] 438/[id number] male PER PT NONE Hospital Day: LOS: 9 days SUBJECTIVE Patient Summary: Patient is a 53 year old male with past medical history of Chronic Alcohol Abuse, Dependenc e and multiple falls who was transferred from [facility] due to a fall, seizures . CT [...] in acute distress. HEENT: Head: S/P Craniotomy. Rainelle at midline and temporo parietoccipital area of [...] and now followed by Dr. Nj from [facility] rosurgery services. He is making [...] plans to a SNF for rehab. manager community development is working on placement which could be harley [employer] due to [place] Medicaid insurance and may delay the discharge till accepted at a [facility]. Spent more than 30 minutes reviewing [...] (none) Author Type: Occupational Therapist Filed: 10/19/14 4929 Date of Service: 10/19/14 1501 Status: Signed Production Welder: CADEN Mcgowan (Occupational Therapist) 10/19/14 1501 Precautions Other Precautions helmet on when OOB Home Environment Bathroom Shower/Tub Tub/shower unit;Shower unit with threshold (uses walk in shower) Bathroom Toilet Standard Bathroom Equipment Grab bars in shower/bath Additional Comments Refer to PT note for PLOF Prior Function Level of [place] Independent with functional mobility;Independent with ADLs;Independe nt with IADLs Lives With Sibling(s) (stated living with brother) ADL Assistance Independent Home ADL's Independent ADL Eating Assistance Total (requiring 1:1 for feeding, per SILK WASHING MACHINE OPERATOR) Grooming Assistance Dependent (per SILK WASHING MACHINE OPERATOR) Grooming impacted by Cognitive deficits;Ability [...] for ADLs/IADLs) Equipment Recommended Shower chair with back;Nut Feeder;HHSH;Grab bars withing home;Bedside co mmode Education Completed: [...] JAVIER Mcgowan, CSRS 10/19/2014 ovarJessica reis MA, CCC-PEGA DEVELOPER - 10/19/2014 2:12 PM PSTFormatting of this note might be differ ent from the original. Therapy Progress Note by Jessica Headley MA CCC-PEGA DEVELOPER at 10/19/14 1412 Author: Jessica Headley MA CCC-PEGA DEVELOPER Service: (none) Author Type: Speech and Language Pathologist Filed: 10/19/14 1413 Date of Service: 10/19/141411 Status: Signed Production Welder: Jessica Headley MA CCC-PEGA DEVELOPER (Speech and Language Pathologist) 10/19/14 2272 Swallowing Assessment Eval Swallowing Treatment Yes Initial Swallow Assessment Behavior/Cognition Lethargic Consistencies Consistencies Assessed Yes Thin Presentation Spoon;Cup Oral Phase Thin Anterior Spillage Left Pharyngeal Phase Delayed swallow initiated;Spontaneous double swallow;Cough - delayed Puree Presentation Spoon Oral Phase Increased oral holding time Pharyngeal Delayed Swallow;No overt signs or symptoms of aspiration Recommendations Liquids Consistency Recommendations Beulah thick Diet Consistency Recommendation Pureed (1-2 snacks [...] Notes by Debora Ott PA-C at 10/19/14 0108 Author: Debora Ott PA-C Service: Neurosurgery Author Type: Physician Asphalt Patcher - Ce rtified Filed: 10/19/14 2466 Date of Service: 10/19/14 1551 Status: Signed Production Welder: Debora Ott PA-C (Physician Asphalt Patcher - Certified) [facility] Service: Neurosurgery Progress Note Hospital Day: LOS: 8 days Post-Op Day: 8 Days Post-Op SUBJECTIVE Patient Summary: s/p craniectomy for large right SDH Events Overnight: Complaining of pain. IPR denied because he lives in [place], antoinette guardado on placement in [place]. Helmet arrived. Scheduled Medications docusate sodium 100 [...] Author: TABITHA Armstrong Service: (none) Author Type: Residential Advisor Filed: 10/19/14 1418 Date of Service: 10/19/14 1346 Status: Addendum Production Welder: TABITHA Armstrong (Residential Advisor) Related Notes: Original Note by TABITHA Armstrong (Residential Advisor) filed at 10/19/14 1347 CM faxed a referral to [facility] in [place] and updated info to [facility] in [place]. CM faxed updated info to the [facility] [place]. Jem NOEL Travon Lara MD - 10/19/2014 1:40 PM PSTFormatting of this note might be different from t he original. Progress Notes by Travon Mitchell MD at 10/19/14 1340 Author: Travon Mitchell MD Service: Hospitalist Author Type: Physician Filed: 10/19/148 Date of Service: 10/19/141339 Status: Signed Production Welder: Travon Mitchell MD (Physician) [facility] Service: Hospitalist Progress Note Tony Fortune 53 y.o. [id number] 438/438-1 male PER PT NONE Hospital Day: LOS: 8 days SUBJECTIVE Patient Summary: Patient is a 53 year old male with past medical history of Chronic Alcohol Abuse, Dependenc e and multiple falls who was transferred from [facility] due to a fall, seizures . CT [...] in acute distress. HEENT: Head: S/P Craniotomy. Rainelle at midline and temporo parietoccipital area of [...] and now followed by Dr. Nj from [facility] rosurgery services. He is making [...] stable to a SNF for rehab. manager community development is working on placement which could be [...] Note by Thalia Simmons PT at 10/19/14 4609 Author: Thalia Simmons PT Service: (none) Author Type: Physical Therapist Filed: 10/19/14 2269 Date of Service: 10/19/14 6254 Status: Signed Production Welder: Thalia Simmons PT (Physical Therapist) 10/19/14 1151 [...] Author: Crissy Maldonado Service: (none) Author Type: Legal Advisor Filed: 10/19/147 Date of Service: 10/19/141055 Status: Signed Production Welder: Crissy Maldonado I attempted to meet with the patient to discuss who his PCP is, however he was in patient c are. Crissy Maldonado-GPS Toy Stuffer Wing Lewis Perry MD - 10/19/2014 9:01 AM PSTFormatting of this note might be different from the origi nal. Progress Notes by Wing Lewis Argueta MD at 10/19/14900 Author: Wing Lewis Argueta MD Service: (none) Author Type: Physician Filed: 10/19/14901 Date of Service: 10/19/14900 Status: Signed Production Welder: Wing Lewis Argueta MD (Physician) Patient seen [...] Notes by Rosa Lassiter RN at 10/19/14 3080 Author: Rosa Lassiter RN Service: (none) Author Type: Registered Nurse Filed: 10/19/148 Date of Service: 10/19/14445 Status: Signed Production Welder: Rosa Lassiter RN (Registered Nurse) Patient transported [...] Ott PA-C Service: Neurosurgery Author Type: Physician Asphalt Patcher - Ce rtified Filed: 10/18/141434 Date of Service: 10/18/141431 Status: Signed Production Welder: Deobra Ott PA-C (Physician Asphalt Patcher - Certified) [facility] Service: Neurosurgery Progress Note Hospital Day: [...] (none) Author Type: Registered Dietitian Filed: 10/18/14 0002 Date of Service: 10/18/14 115 Status: Signed Production Welder: Maye Saleem RD, BRIAN (Registered Dietitian) Nutrition Follow-Up High-risk follow-up. Assessment: Has been very lethargic. Continues to have right-sided hemiparesis. Nutritionally pertinent labs: Electrolytes, BUN, and Cr are WNL. BG has been variable in th e 100s, no insulin ordered at this time. Nutrition-focused physical findings: Skin is intact. PEGA DEVELOPER continues to follow due to dysphag ia. Diet order/current intake: Puree snacks, 1-2 items per meal tray TID plus nectar thick liqu ids by spoon only. Per RN, pt had Faroese toast and yogurt this morning and finished 95%. On IV fluids of NS at 30 mL/hr. Continues to receive folic acid and thiamine supplementatio n. Nutrition Diagnosis: Increased kcal/protein requirements related to catabolic illness and healing as evidenced b y TBI. Intervention: Continue diet per PEGA DEVELOPER recommendations. 1:1 feeds with all meals. Magic Cups to be sent with meal trays. Will monitor wt trend and f/u to provide further nutrition recs based on clinical course. Goal: PO intake will be adequate to meet pt's estimated nutritional requirements. Recommendations: 1) Continue diet per PEGA DEVELOPER. 2) Magic Cups with meal trays. Monitoring: Will follow up in 4 days or as indicated. Maye Saleem RD, CD, CNSC 10/18/2014 onver alem Transaction, Provider Unknown - 10/18/2014 11:07 AM PST Therapy Progress Note by Flaquito Platt PT at 10/18/14 1107 Author: Flaquito Platt PT Service: (none) Author Type: Physical Therapist Filed: 10/18/14 4604 Date of Service: 10/18/141106 Status: Signed Production Welder: Flaquito Platt PT (Physical Therapist) 10/18/14 1107 [...] AM PST Therapy Progress Note by DAYANARA Ross-PEGA DEVELOPER at 10/18/14912 Author: DAYANARA Ross-PEGA DEVELOPER Service: (none) Author Type: Speech and Language Patholo gist Filed: 10/18/14912 Date of Service: 10/18/14912 Status: Signed Production Welder: DAYANARA Ross-PEGA DEVELOPER (Speech and Language Pathologist) 10/18/14844 Swallowing Assessment Eval Swallowing Treatment Yes Initial Swallow Assessment Respiratory Status Room air Behavior/Cognition Requires cueing;Doesn't follow directions;Lethargic Dentition Adequate Vision Impaired for self-feeding Patient Positioning Upright in bed Volitional Cough Strong Consistencies Consistencies Assessed Yes Ice Chips Presentation Spoon Oral Phase Increased holding time Pharyngeal Phase No overt signs or symptoms of aspirations;Delayed swallow initiation Beulah Presentation Cup Oral WFL;Increased Anterior to Posterior Transit Pharyngeal Phase Delayed swallow initiated;No overt signs or symptoms of aspiration;Decreas ed laryngeal elevation upon palpation Dysphagia Mechanically Altered Presentation Spoon Oral Phase Prolonged mastication;Increased holding time Pharyngeal Phase Cough - Delayed (cueing needed to swallow) Recommendations Liquids Consistency Recommendations Beulah thick Diet Consistency Recommendation Pureed;Other (comment) (1-2 [...] monitoring;Patient/Family education;Assessment for upgr khadijah Dysphagia Goals Feeder/Folder Goals Safe/efficient oral intake Pt will have safe/efficient oral intake Beulah thick liquids Pt will advanced diet in 3 days;Goal progressing Short Term Goals Tolerate diet Pt will tolerate diet upgrade trials With 1:1 supervision;Goal progressing Pt will tolerate diet Puree;with 1:1 supervision;With feeding assist;Goal progressing Mere Hardy MA CFY-PEGA DEVELOPER 10/18/2014 Travon Lara MD - 10/18/2014 8:36 AM PSTFormatting of this note might be different from lissett ruvalcaba. Progress Notes by Travon Mitchell MD at 10/18/14835 Author: Travon Mitchell MD Service: Hospitalist Author Type: Physician Filed: 10/18/14 1458 Date of Service: 10/18/14835 Status: Signed Production Welder: Travon Mitchell MD (Physician) [facility] Service: Hospitalist Progress Note Tony Leeclinton 53 y.o. [id number] -[id number] male PER PT NONE Hospital Day: LOS: 7 days SUBJECTIVE Patient Summary: Patient is a 53 year old male with past medical history of Chronic Alcohol Abuse, Dependenc e and multiple falls who was transferred from [facility] due to a fall, seizures . CT [...] Author: TABITHA Sidhu Service: (none) Author Type: Residential Advisor Filed: 10/17/14 1049 Date of Service: 10/17/14 1048 Status: Signed Production Welder: TABITHA Sidhu (Residential Advisor) Faxed updated clinical notes to [facility]. PT still not able to do a thorough eval as pt does not have his helmet yet. onver alem Transaction, Provider Unknown - 10/17/2014 10:38 AM PST Therapy Progress Note by Flaquito Platt PT at 10/17/14 1038 Author: Flaquito Platt, PT Service: (none) Author Type: Physical Therapist Filed: 10/17/14 1611 Date of Service: 10/17/14 1038 Status: Signed Production Welder: Flaquito Platt PT (Physical Therapist) 10/17/14 1038 [...] OOB mobility assessment Maria Teresa Valdes MA, CCC-PEGA DEVELOPER - 10/17/2014 8:36 AM PSTFormatting of this note might be differ ent from the original. Therapy Progress Note by Maria Teresa Lucas MS CFY-PEGA DEVELOPER at 10/17/14 3887 Author: Maria Teresa Lucas MS CFY-PEGA DEVELOPER Service: (none) Author Type: Speech Therapist Filed: 10/17/14835 Date of Service: 10/17/14835 Status: Signed Production Welder: Maria Teresa Lucas MS CFY-PEGA DEVELOPER (Speech and Language Pathologist) 10/17/14824 Swallowing Assessment Eval Swallowing Treatment Yes Consistencies Consistencies Assessed Yes Beulah Presentation Cup Oral WFL;Increased Anterior to Posterior Transit Pharyngeal Phase No overt signs or symptoms of aspiration;Delayed swallow initiated;Decreas ed laryngeal elevation upon palpation;Spontaneous double swallow Recommendations Liquids Consistency Recommendations Beulah thick;Other (comments) (by spoon) Diet Consistency Recommendation [...] was observed to be tolerating breakfast before PEGA DEVELOPER walked in. Recommend cont. 1 puree snack [...] education;Assessment for upgr khadijah;Swallow strategies Dysphagia Goals Group Home Goals Safe/efficient oral intake;Advanced diet Pt will have safe/efficient oral intake Beulah thick liquids;Puree diet;Goal progressing Pt will advanced diet in 3 days;Goal progressing Short Term Goals Tolerate diet upgrade trials Pt will tolerate diet upgrade trials With 1:1 supervision;Goal progressing Electronically signed by Maria Teresa Lucas MA, [facility]-PEGA DEVELOPER at 10/17/2014 8:36 AM Travon Orosco MD - 10/17/2014 8:19 AM PSTFormatting of this note might be different from t regina original. Progress Notes by Travon Mitchell MD at 10/17/14818 Author: Travon Mitchell MD Service: Hospitalist Author Type: Physician Filed: 10/18/14 0019 Date of Service: 10/17/14818 Status: Signed Production Welder: Travon Mitchell MD (Physician) [facility] Service: Hospitalist Progress Note Tony Fortune 53 y.o. [id number] - male PER PT NONE Hospital Day: LOS: 7 days SUBJECTIVE Patient Summary: Patient is a 53 year old male with past medical history of Chronic Alcohol Abuse, Dependenc e and multiple falls who was transferred from [facility] due to a fall, seizures . CT [...] in acute distress. HEENT: Head: S/P Craniotomy. Rainelle noted at the midline and temporo parietoccipital [...] Notes by Cyndy Nj MD at 10/17/14 0789 Author: Cyndy Nj MD Service: Neurosurgery Author Type: Physician Filed: 10/17/1448 Date of Service: 10/17/14744 Status: Signed Production Welder: Cyndy Nj MD (Physician) [facility] Service: Neurosurgery Progress Note Hospital Day: [...] Date of Service: 10/16/14 1430 Status: Signed Production Welder: CADEN Mcgowan (Occupational Therapist) 10/16/14 1430 OT Last Visit OT Received On 10/16/14 Requires OT Follow Up Unavailable (w/PT) Plan to follow up tomorrow for OT evaluation. JAVIER Mcgowan, CSRS 10/16/2014 Coral nichole, JENNIFER Arango - 10/16/2014 2:29 PM PSTFormatting of this note might be different f rom the original. Progress Notes by JENNIFER Small at 10/16/14 1429 Author: JENNIFER Small Service: Engineering Geologist Author Type: Engineering Geologist Filed: 10/16/14 1506 Date of Service: 10/16/14 1429 Status: Signed Production Welder: JENNIFER Small (Nurse Practitioner) [facility] Service: Engineering Geologist Progress Note Tony Fortune 53 y.o. Date of Admission: 10/11/2014 Treatment Team: Consulting Physician: Anthony Chong MD Admitting Provider: Harika Apodaca MD CHIEF COMPLAINT: severe TBI, large right SDH with massive midline shift, IC hypertension HISTORY OF PRESENT ILLNESS The patient is a 53 y.o. male with significant past medical history of chronic alcohol abus e and multiple falls. Per ED report from [facility]: he was drinking earlier today at home and fell twice. He went to bed and then he was noted to be having what they thought was seizure activity and th ey could not wake him and called EMS. He was taken to the ED at [facility] in [place] a nd then transferred to the ED [...] FOR BLEED; Surgeon: Anthony Chong MD; Location: [facility] IN [facility]; Service: Neurosurgery; Laterality: Right; Craniectomy Right 10/11/2014 Procedure: CRANIECTOMY; Surgeon: Anthony Chong MD; Location: [facility] [place]; Ser vice: Neurosurgery; Laterality: Right; ALLERGIES [...] 14 2014 5:24AM Refe rring Provider Line: [phone] ID: [id number] Xr Chest 1 View 10/14/2014 [...] upper extremities. Orth otics was consultated and [facility] came and measured him for a helmet [...] (none) Author Type: Physical Therapist Filed: 10/16/14 6195 Date of Service: 10/16/14 1415 Status: Signed Production Welder: Ki Martinez PT (Physical Therapist) 10/16/14 1415 [...] Author: TABITHA Sidhu Service: (none) Author Type: Residential Advisor Filed: 10/16/14 1307 Date of Service: 10/16/14 1300 Status: Signed Production Welder: TABITHA Sidhu (Residential Advisor) Received t/c from Day[facility] at [place] ([phone]). She is requesting PT notes. I informed [...] her that I made a referral to [facility] as a back up plan if pt is not an IPR ca ndidate. I called Doroteo Chamorro Coord for [facility] IPR and she confirmed that [place] [facility] Medicaid requires that pt go to an [place] facility for rehab. Await PT/OT eval. Speech Therapy is already involved. onver alem Transaction, Provider Unknown - 10/16/2014 12:20 PM PST Case Management by TABITHA Sidhu at 10/16/14 1220 Author: TABITHA Sidhu Service: (none) Author Type: Residential Advisor Filed: 10/16/14 1220 Date of Service: 10/16/14 1220 Status: Signed Production Welder: TABITHA Sidhu (Residential Advisor) Placed t/c to [place] and left message requesting bed availability and acceptance. Await return call. [place] - Admissions- [phone] onver alem Transaction, Provider Unknown - 10/16/2014 12:01 PM PST Therapy Progress Note by Ki Martinez, PT at 10/16/14 1201 Author: Ki Martinez PT Service: (none) Author Type: Physical Therapist Filed: 10/16/14 1334 Date of Service: 10/16/14 1201 Status: Signed Production Welder: Ki Martinez PT (Physical Therapist) 10/16/14 1201 PT Last Visit PT Received On 10/16/14 (still awaiting ortho helmet delivery) Requires PT Follow Up Yes;On hold Cyndy Warner MD - 10/16/2014 11:22 AM PST Progress Notes by Cyndy Nj MD at 10/16/14 1122 Author: Cyndy Nj MD Service: Neurosurgery Author Type: Physician Filed: 10/16/14 1124 Date of Service: 10/16/14 1122 Status: Signed Production Welder: Cyndy Nj MD (Physician) [facility] Service: Neurosurgery Progress Note Hospital Day: [...] nystatin, nystatin, ondansetron OR ondanset gildardo, pancrelipase (Wbl-Dkok-Ilgh) 10,000 units, petrolatum, phosphorus OR sodium phospha [...] Oct 16 2014 6:08AM Referring Provider Line: [phone] E ID: [id number] PROBLEM LIST Principal Problem: [...] Nj MD 10/16/2014 Maria Teresa Dhillon MA, CCC-PEGA DEVELOPER - 10/16/2014 9:40 AM PST Therapy Progress Note by MS CLAUDIA HayesY-PEGA DEVELOPER at 10/16/14939 Author: MS KT Hayes-PEGA DEVELOPER Service: (none) Author Type: Speech Therapist Filed: 10/16/14940 Date of Service: 10/16/14939 Status: Signed Production Welder: Maria Teresa Lucas MS CFY-PEGA DEVELOPER (Speech and Language Pathologist) 10/16/14920 Swallowing Assessment Eval Swallowing Treatment Yes Initial Swallow Assessment Respiratory Status Room air Behavior/Cognition Cooperative;Lethargic;Requires cueing Dentition Adequate;Poor dental/oral hygiene Vision Impaired for self-feeding Patient Positioning Upright in bed Volitional Cough Weak Volitional Swallow Delayed Consistencies Consistencies Assessed Yes Beulah Presentation Spoon Oral WFL;Increased Anterior to Posterior Transit Pharyngeal Phase Delayed swallow initiated;Decreased laryngeal elevation upon palpation;Cou gh - delayed;Spontaneous double swallow Puree Presentation Spoon Oral Phase Increased oral holding time Pharyngeal Delayed Swallow;Cough - Delayed;Spontaneous double swallow;Decreased Laryngeal E levation Recommendations Liquids Consistency Recommendations Beulah thick;Other (comments) (No straws ) Diet Consistency [...] education;Assessment for upgr khadijah;Swallow strategies Dysphagia Goals Group Home Goals Safe/efficient oral intake;Advanced diet Pt will have safe/efficient oral intake Beulah thick liquids;Puree diet;Goal progressing Pt will advanced diet in 3 days;Goal progressing Short Term Goals Tolerate diet upgrade trials Pt will tolerate diet upgrade trials With 1:1 supervision;Goal progressing onver alem Transaction, Provider Unknown - 10/16/2014 9:12 AM PST Case Management by TABITHA Sidhu at 10/16/14 0912 Author: TABITHA Sidhu Service: (none) Author Type: Residential Advisor Filed: 10/16/14 1254 Date of Service: 10/16/14911 Status: Addendum Production Welder: TABITHA Sidhu (Residential Advisor) Related Notes: Original Note by TABITHA Sidhu (Residential Advisor) filed at 10/16/14 0914 10/16/14 0908 Discharge Planning Evaluation Admitting Diagnosis TBI Readmission No Living Arrangements Alone Support Systems Parent;Children Type of Residence Private residence (Lives on the [facility]/housing project) House type (Duplex) Independent with ADL's [...] No Prescription Plan Yes Name of Pharmacy [facility] Anticipated Disposition Facility Type Inpatient Rehabilitation;group home facility Spoke with pt's mother Teressa ([phone]) and discussed discharge planning, Pt is a 53 y.o., male admitted with TBI from 2 falls rela stephenie to etoh. Per mother, pt was driving, shopping, doing own chores prior to admit. 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 Patient's PCP is: PER PT NONE Patient's insurance:[facility] Medicaid Coverage concerns: Medication coverage/concerns: Nahun'eliseo [...] (none) Author Type: Registered Dietitian Filed: 10/15/14 7938 Date of Service: 10/15/141721 Status: Signed Production Welder: Maye Saleem RD, CD (Registered Dietitian) Nutrition Follow-Up High-risk follow-up. Assessment: Extubated yesterday. Appetite is good. Nutritionally pertinent labs: BG has been variable in the 100s, Nutrition-focused physical findings: Skin is intact. PEGA DEVELOPER is following due to dysphagia. Diet order/current [...] y and TBI. Intervention: Continue diet per PEGA DEVELOPER. 1:1 feeding assistance with meals. Include Ensure pudding with meal trays when appropriate. Additional supplements to be provided once diet can be advanced. Goal: Pt will tolerate diet upgrade and intake will be adequate to meet pt's estimated nutritiona l requirements. Recommendations: 1) General diet with texture/liquid modifications as per PEGA DEVELOPER recommendations. 2) Ensure pudding with meal trays once pt can have additional puree items. Monitoring: Will follow up in 3 days or as indicated. Maye Saleem RD, CD 10/15/2014 ang, Cyndy Saucedo MD - 10/15/2014 4:32 PM PST Progress Notes by Cyndy Nj MD at 10/15/14 1632 Author: Cyndy Nj MD Service: Neurosurgery Author Type: Physician Filed: 10/15/14 1632 Date of Service: 10/15/141631 Status: Signed Production Welder: Cyndy Nj MD (Physician) [facility] Service: Neurosurgery Progress Note Hospital Day: [...] nystatin, nystatin, ondansetron OR ondanset gildardo, pancrelipase (Jvv-Dzky-Dqre) 10,000 units, petrolatum, phosphorus OR sodium phospha [...] 10/15/141932 Date of Service: 10/15/141609 Status: Signed Production Welder: Ki Martinez PT (Physical Therapist) 10/15/14 161 [...] p with bilateral hands, but had minimal account installer bilaterally. Pt was able to reach anteriorly [...] Progress Notes by JENNIFER Small at 10/15/14 0869 Author: JENNIFER Small Service: Engineering Geologist Author Type: Engineering Geologist Filed: 10/15/14 1208 Date of Service: 10/15/14 3712 Status: Signed Production Welder: JENNIFER Small (Nurse Practitioner) [facility] Service: Engineering Geologist Progress Note Tony Fortune 53 y.o. Date of Admission: 10/11/2014 Treatment Team: Consulting Physician: Anthoyn Chong MD Admitting Provider: Harika Apodaca MD CHIEF COMPLAINT: severe TBI, large right SDH with massive midline shift, IC hypertension HISTORY OF PRESENT ILLNESS The patient is a 53 y.o. male with significant past medical history of chronic alcohol abus e and multiple falls. Per ED report from [facility]: he was drinking earlier today at home and fell twice. He went to bed and then he was noted to be having what they thought was seizure activity and th ey could not wake him and called EMS. He was taken to the ED at [facility] in [place] a nd then transferred to the ED [...] FOR BLEED; Surgeon: Anthony Chong MD; Location: [facility] IN [facility]; Service: Neurosurgery; Laterality: Right; Craniectomy Right 10/11/2014 Procedure: CRANIECTOMY; Surgeon: Anthony Chong MD; Location: [facility] OR; Ser vice: Neurosurgery; Laterality: Right; ALLERGIES [...] drinks but has periods of not drin jsesica Drug Use: Yes Comment: uknown but possibly [...] 14 2014 5:24AM Refe savage Provider Line: [phone] ID: [id number] Xr Chest 1 View 10/14/2014 [...] Author: TABITHA Sidhu Service: (none) Author Type: Residential Advisor Filed: 10/16/14 1251 Date of Service: 10/15/14 1132 Status: Addendum Production Welder: TABITHA Sidhu (Residential Advisor) Related Notes: Original Note by TABITHA Sidhu (Residential Advisor) filed at 10/15/14 1135 Attended morning rounds. Pt is extubated. Will need TBI rehab. Has [place] Medicaid. Referral made to [facility] ([phone]). Faxed initial referral info and updated clinical. Await return call regarding acceptance and bed availability. onver alem Transaction, Provider Unknown - 10/15/2014 11:06 AM PST Therapy Progress Note by ИВАН Poole at 10/15/14 1106 Author: ИВАН Poole Service: (none) Author Type: Massage Therapist Filed: 10/15/14 1106 Date of Service: 10/15/14 1106 Status: Signed Production Welder: ИВАН Poole (Massage Therapist) 10/15/14 1100 MT Last Visit MT Received On 10/15/14 MT Therapy Visit On hold (due to temp >100F in last 24 hrs) Helen Campos MS [facility]-PEGA DEVELOPER - 10/15/2014 8:30 AM PSTFormatting of this note might be different f rom the original. Therapy Progress Note by Helen Brian MS CFY-PEGA DEVELOPER at 10/15/14829 Author: MS KT Waters-PEGA DEVELOPER Service: (none) Author Type: Speech and Language Pa thologist Filed: 10/15/14907 Date of Service: 10/15/14829 Status: Signed Production Welder: MS KT Waters-PEGA DEVELOPER (Speech and Language Pathologist) 10/15/14829 Swallowing Assessment [...] cough w/ all straw and cup trials) Beulah Presentation Cup;Spoon Oral Spillage Left;Increased Anterior to Posterior Transit Pharyngeal Phase Delayed swallow initiated;Decreased laryngeal elevation upon palpation;Cou gh - delayed (delayed cough in 2/6 trials by cup, no cough by spoon) Puree Presentation Spoon Oral Phase Increased oral holding time Pharyngeal Delayed Swallow;Decreased Laryngeal Elevation;Spontaneous double swallow Recommendations Liquids Consistency Recommendations Beulah thick;Ice chips for oral comfort (NO STRAWS) [...] monitoring;Patient/Family education;Assessment for upgr khadijah Dysphagia Goals Group Home Goals Safe/efficient oral intake;Advanced diet Pt will have safe/efficient oral intake Beulah thick liquids;Puree diet;New/revised goal Pt will advanced diet in 3 days;New/revised goal Short Term Goals Tolerate diet upgrade trials Pt will tolerate diet upgrade trials With 1:1 supervision;New/revised goal onversio n Transaction, Provider Unknown - 10/14/2014 4:48 PM PSTFormatting of this note might be di fferent from the original. Progress Notes by Massiel Stovall RN at 10/14/14 8762 Author: Massiel Stovall RN Service: (none) Author Type: Registered Nurse Filed: 10/14/14 724 Date of Service: 10/14/141647 Status: Signed Production Welder: Massiel Stovall RN (Registered Nurse) Phoned Pt [...] 1413 Date of Service: 10/14/141411 Status: Signed Production Welder: Maria Teresa Castillo RN (Registered Nurse) No need for PICC line at time. Time. Informed Na, CLINICAL MASSAGE THERAPIST to reorder if needed. Idalmis, Primar y RN to change IV today. MARIA TERESA CASTILLO RN Coral nichole, JENNIFER Arango - 10/14/2014 12:33 PM PSTFormatting of this note might be different f rom the original. Progress Notes by JENNIFER Small at 10/14/14 1233 Author: JENNIFER Small Service: Engineering Geologist Author Type: Engineering Geologist Filed: 10/14/14 1316 Date of Service: 10/14/14 1233 Status: Signed Production Welder: JENNIFER Small (Nurse Practitioner) [facility] Service: Engineering Geologist Progress Note Tony Fortune 53 y.o. Date of Admission: 10/11/2014 Treatment Team: Consulting Physician: Anthony Chong MD Admitting Provider: Harika Apodaca MD CHIEF COMPLAINT: severe TBI, large right SDH with massive midline shift, IC hypertension HISTORY OF PRESENT ILLNESS The patient is a 53 y.o. male with significant past medical history of chronic alcohol abus e and multiple falls. Per ED report from [facility]: he was drinking earlier today at home and fell twice. He went to bed and then he was noted to be having what they thought was seizure activity and th ey could not wake him and called EMS. He was taken to the ED at [facility] in [place] a nd then transferred to the ED [...] FOR BLEED; Surgeon: Anthony Chong MD; Location: [facility]; Service: Neurosurgery; Laterality: Right; Craniectomy Right 10/11/2014 Procedure: CRANIECTOMY; Surgeon: Anthony Chong MD; Location: [facility]; Ser vice: Neurosurgery; Laterality: Right; ALLERGIES [...] heels LINES/TUBES: PIVs, daniels cath, left radial [place] DATA Recent Labs Lab 10/14/14 0415 10/13/14 [...] 14 2014 5:24AM Refe rrgeorges Provider Line: [phone] ID: [id number] Xr Chest 1 View 10/14/2014 [...] 10/14/14644 Date of Service: 10/14/14644 Status: Signed Production Welder: Sophy Vargas RPH (Pharmacist) Day 2 Vanco [...] 10/13/142099 Date of Service: 10/13/142099 Status: Signed Production Welder: Glenys Aguila RPH (Pharmacist) Clinical Pharmacy Note: [...] - 11.0 K/uL Final Testing performed at [facility], [address] [place] [address] INDICATION: CAP Will begin Vancomycin 1750 mg [...] 10/13/141636 Date of Service: 10/13/141636 Status: Signed Production Welder: Massiel Stovall RN (Registered Nurse) Pulmonary edema in process of resolving. tephe Anthony pierre MD - 10/13/2014 4:04 PM PSTFormatting of this note might be different from t he original. Progress Notes by Anthony Chong MD at 10/13/14 1604 Author: Anthony Chong MD Service: Neurosurgery Author Type: Physician Filed: 10/13/141606 Date of Service: 10/13/141603 Status: Signed Production Welder: Anthony Chong MD (Physician) [facility] Service: Neurosurgery Progress Note Hospital Day: [...] nystatin, nystatin, ondansetron OR ondanset gildardo, pancrelipase (Acg-Sfkt-Uchk) 10,000 units, petrolatum, phosphorus OR sodium phospha [...] Date of Service: 10/13/14 1530 Status: Signed Production Welder: Massiel Stovall RN (Registered Nurse) Pt went into flash pulmonary edema, And [facility]ENNIFER [facility] bed side. [facility], JENNIFER Arango - 10/13/2014 2:57 PM PSTFormatting of this note might be different f rom the original. Progress Notes by JENNIFER Small at 10/13/14 9207 Author: JENNIFER Small Service: Engineering Geologist Author Type: Engineering Geologist Filed: 10/13/14 1510 Date of Service: 10/13/141456 Status: Signed Production Welder: JENNIFER Small (Nurse Practitioner) [facility] Service: Engineering Geologist Progress Note Tony Fortune 53 y.o. Date of Admission: 10/11/2014 Treatment Team: Consulting Physician: Anthony Chong MD Admitting Provider: Harika Apodaca MD CHIEF COMPLAINT: severe TBI, large right SDH with massive midline shift, IC hypertension HISTORY OF PRESENT ILLNESS The patient is a 53 y.o. male with significant past medical history of chronic alcohol abus e and multiple falls. Per ED report from [facility]: he was drinking earlier today at home and fell twice. He went to bed and then he was noted to be having what they thought was seizure activity and th ey could not wake him and called EMS. He was taken to the ED at [facility] in [place] a nd then transferred to the ED [...] FOR BLEED; Surgeon: Anthony Chong MD; Location: [facility]; Service: Neurosurgery; Laterality: Right; Craniectomy Right 10/11/2014 Procedure: CRANIECTOMY; Surgeon: Anthony Chong MD; Location: [facility] OR; Ser vice: Neurosurgery; Laterality: Right; ALLERGIES [...] heels LINES/TUBES: PIVs, daniels cath, left radial [place] DATA Recent Labs Lab 10/13/14 0247 10/12/14 [...] 10/13/14446 Date of Service: 10/13/14442 Status: Signed Production Welder: Mikki Jules RRT (Registered Respiratory Therapist) RT [...] at 10/12/142015 Author: Harika Apodaca MD Service: Engineering Geologist Author Type: Engineering Geologist Filed: 10/12/142026 Date of Service: 10/12/142015 Status: Signed Production Welder: Harika Apodaca MD (Physician) [facility] Service: Engineering Geologist Progress Note Tony Fortune 53 y.o. Date [...] and multiple falls. Per ED report from [facility]: he was drinking earlier today and fe ll twice. He went to bed and then he was noted to be having what they thought was seizure ac tivity and they could not wake him and called EMS. He was taken to the ED at [facility] and then transferred to the ED here [...] FOR BLEED; Surgeon: Anthony Chong MD; Location: [facility]; Service: Neurosurgery; Laterality: Right; Craniectomy Right 10/11/2014 Procedure: CRANIECTOMY; Surgeon: Anthony Chong MD; Location: [facility] OR; Ser vice: Neurosurgery; Laterality: Right; ALLERGIES [...] 4 mm and reactive. Motor: Able to shot examiner RUE to command and left LE to [...] Case Management by TABITHA Sidhu at 10/12/14 8216 Author: TABITHA Sidhu Service: (none) Author Type: Residential Advisor Filed: 10/12/14 0847 Date of Service: 10/12/141529 Status: Signed Production Welder: TABITHA Sidhu (Residential Advisor) Attended morning rounds. Pt is vented and admitted with TBI. No family have visited yet lissett kothari. Pt appears to be responding to some commands. He is a drinker. He reportedly has had s everal falls recently. Pt will need TBI rehab. He is from [place], [place] and [place]. If he requires LTAC h e will need to go to [facility] as [place] Medicaid is contracted with [facility] only. Will c omplete assessment when family arrives. tAnthony rodriguez MD - 10/12/2014 2:04 PM PSTFormatting of this note might be different from t he original. Progress Notes by Anthony Chong MD at 10/12/14 9723 Author: Anthony Chong MD Service: Neurosurgery Author Type: Physician Filed: 10/12/14 9942 Date of Service: 10/12/141403 Status: Signed Production Welder: Anthony Chong MD (Physician) [facility] Service: Neurosurgery Progress Note Hospital Day: [...] 10/11/142351 Date of Service: 10/11/142349 Status: Signed Production Welder: Trena Gilbert () [facility] Nayana called with request from family. When I arrived at hospital family had already left. I will leave info for morning can striper to visit tomorrow. Chaplain Trena Gilbert onver alem Transaction, Provider Unknown - 10/11/2014 11:02 PM PST Progress Notes by Glenys Aguila RPH at 10/11/142301 Author: Glenys Aguila RPH Service: (none) Author Type: Pharmacist Filed: 10/11/142301 Date of Service: 10/11/142301 Status: Signed Production Welder: Glenys Aguila RPH (Pharmacist) Clinical Pharmacy Note: [...] | | | | | [place] [address] | | | | + + + + + + | K | 3.8Comment: Testing | 3.5 - 4.9 | EXTERNAL | | | | performed at [facility], [address] | mmol/L | LAB | | | | [address], | | | | | | [place] [address] | | | | + + + + + + | Cl | 101Comment: Testing | 99 - 109 mmol/L | EXTERNAL | | | | performed at [facility], [address] | | LAB | | | | [address], | | | | | | [place] [address] | | | | + + + + + + | CO2 | 28Comment: Testing | 23 - 32 mmol/L | EXTERNAL | | | | performed at [facility], [address] | | LAB | | | | [address], | | | | | | [place] [address] | | | | + + + + + + | Anion Gap | 9Comment: Testing | 5 - 20 mmol/L | EXTERNAL | | | | performed at [facility], [address] | | LAB | | | | [address], | | | | | | [place] [address] | | | | + + + + + + | Glucose, | 119 (H)Comment: Testing | 65 - 99 mg/dL | EXTERNAL | | | Fasting | performed at [facility], [address] | | LAB | | | | [address], | | | | | | [place] [address] | | | | + + + + + + | BUN | 8Comment: Testing | 8 - 25 mg/dL | EXTERNAL | | | | performed at [facility], [address] | | LAB | | | | [address], | | | | | | [place] [address] | | | | + + + + + + | Creatinine | 0.54 (L)Comment: Testing | 0.70 - 1.30 | EXTERNAL | | | | performed at [facility], [address] | mg/dL | LAB | | | | [address], | | | | | | [place] [address] | | | | + + + + + + | BUN/Creatin | 15Comment: Testing | | EXTERNAL | | | ine Ratio | performed at [facility], [address] | | LAB | | | | [address], | | | | | | [place] [address] | | | | + + + + + + | Calcium | 9.4Comment: NOTE NEW | 8.5 - 10.5 | EXTERNAL | | | | REFERENCE RANGETesting | mg/dL | LAB | | | | performed at [facility], [address] | | | | | [address], | | | | | | [place] [address] | | | | + + + [...] | | | | | | at [facility], [address] | | | | | | [address] [facility], | | | | | | [place] [address] | | | | + + [...] | | | | | [place] [address] | | | | + + + + + + | K | 3.6Comment: Testing | 3.5 - 4.9 | EXTERNAL | | | | performed at [facility], [address] | mmol/L | LAB | | | | [address], | | | | | | [place] [address] | | | | + + + + + + | Cl | 101Comment: Testing | 99 - 109 mmol/L | EXTERNAL | | | | performed at [facility], [address] | | LAB | | | | [address], | | | | | | [place] [address] | | | | + + + + + + | CO2 | 29Comment: Testing | 23 - 32 mmol/L | EXTERNAL | | | | performed at [facility], [address] | | LAB | | | | [address], | | | | | | [place] [address] | | | | + + + + + + | Anion Gap | 8Comment: Testing | 5 - 20 mmol/L | EXTERNAL | | | | performed at [facility], [address] | | LAB | | | | [address], | | | | | | [place] [address] | | | | + + + + + + | Glucose, | 118 (H)Comment: Testing | 65 - 99 mg/dL | EXTERNAL | | | Fasting | performed at [facility], [address] | | LAB | | | | [address], | | | | | | [place] [address] | | | | + + + + + + | BUN | 7 (L)Comment: Testing | 8 - 25 mg/dL | EXTERNAL | | | | performed at [facility], [address] | | LAB | | | | [address], | | | | | | [place] [address] | | | | + + + + + + | Creatinine | 0.57 (L)Comment: Testing | 0.70 - 1.30 | EXTERNAL | | | | performed at [facility], [address] | mg/dL | LAB | | | | [address], | | | | | | [place] [address] | | | | + + + + + + | BUN/Creatin | 12Comment: Testing | | EXTERNAL | | | ine Ratio | performed at [facility], [address] | | LAB | | | | [address], | | | | | | [place] [address] | | | | + + + + + + | Calcium | 9.5Comment: NOTE NEW | 8.5 - 10.5 | EXTERNAL | | | | REFERENCE RANGETesting | mg/dL | LAB | | | | performed at [facility], [address] | | | | | | [address], | | | | | | [place] [address] | | | | + + + + + + | Protein, | 7.7Comment: Testing | 6.3 - 8.2 g/dL | EXTERNAL | | | Total | performed at [facility], [address] | | LAB | | | | [address], | | | | | | [place] [address] | | | | + + + + + + | Albumin | 3.5 (L)Comment: Testing | 3.6 - 5.0 g/dL | EXTERNAL | | | | performed at [facility], [address] | | LAB | | | | [address], | | | | | | [place] [address] | | | | + + + + + + | Globulin | 4.2Comment: Testing | 1.3 - 4.9 g/dL | EXTERNAL | | | | performed at [facility], [address] | | LAB | | | | [address], | | | | | | [place] [address] | | | | + + + + + + | A/G Ratio | 0.8 (L)Comment: Testing | 1.0 - 2.4 | EXTERNAL | | | | performed at [facility], [address] | | LAB | | | | [address], | | | | | | [place] [address] | | | | + + + + + + | Bilirubin | 0.6Comment: Testing | 0.1 - 1.5 mg/dL | EXTERNAL | | | Total | performed at [facility], [address] | | LAB | | | | [address], | | | | | | [place] [address] | | | | + + + + + + | ALP, | 225 (H)Comment: Testing | 35 - 115 U/L | EXTERNAL | | | External | performed at [facility], [address] | | LAB | | | | [address], | | | | | | [place] [address] | | | | + + + + + + | AST | 52 (H)Comment: Testing | 10 - 45 U/L | EXTERNAL | | | | performed at [facility], [address] | | LAB | | | | [address], | | | | | | [place] [address] | | | | + + + + + + | ALT | 46Comment: Testing | 10 - 65 U/L | EXTERNAL | | | | performed at [facility], [address] | | LAB | | | | [address], | | | | | | [place] [address] | | | | + + + [...] [address], | | | | | | [place] [address] | | | | + + + [...] EXTERNAL | | | | performed at [facility], [address] | | LAB | | | | [address], | | | | | | [place] [address] | | | | + + + + + + | RED CELL | 3.62 (L)Comment: Testing | 4.20 - 5.70 | EXTERNAL | | | COUNT | performed at [facility], [address] | M/uL | LAB | | | | [address], | | | | | | [place] [address] | | | | + + + + + + | Hgb | 12.0 (L)Comment: Testing | 13.2 - 17.0 | EXTERNAL | | | | performed at [facility], [address] | g/dL | LAB | | | | [address], | | | | | | [place] [address] | | | | + + + + + + | Hematocrit, | 36.2 (L)Comment: Testing | 39.0 - 50.0 % | EXTERNAL | | | POC | performed at [facility], [address] | | LAB | | | | [address], | | | | | | [place] [address] | | | | + + + + + + | MCV | 99.9Comment: Testing | 80.0 - 100.0 fl | EXTERNAL | | | | performed at [facility], [address] | | LAB | | | | [address], | | | | | | [place] [address] | | | | + + + + + + | MCH | 33.2Comment: Testing | 27.0 - 34.0 pg | EXTERNAL | | | | performed at [facility], [address] | | LAB | | | | [address], | | | | | | [place] [address] | | | | + + + + + + | MCHC | 33.2Comment: Testing | 32.0 - 35.5 | EXTERNAL | | | | performed at [facility], [address] | g/dL | LAB | | | | [address], | | | | | | [place] [address] | | | | + + + + + + | RDW-CV | 54.7 (H)Comment: Testing | 37 - 53 fl | EXTERNAL | | | | performed at [facility], [address] | | LAB | | | | [address], | | | | | | [place] [address] | | | | + + + + + + | Platelet | 286Comment: Testing | 150 - 400 K/uL | EXTERNAL | | | Count | performed at [facility], [address] | | LAB | | | Plasma | [address], | | | | | | [place] [address] | | | | + + + + + + | MPV | 8.2Comment: Testing | fl | EXTERNAL | | | | performed at [facility], [address] | | LAB | | | | [address], | | | | | | [place] [address] | | | | + + + + + + | Differentia | AUTOMATEDComment: | | EXTERNAL | | | l Type | Testing performed at | | LAB | | | | [facility], [address] | | | | | | [place] | | | | | | [address] | | | | + + + + + + | % Segmented | 72.2Comment: Testing | % | EXTERNAL | | | | performed at [facility], [address] | | LAB | | | Neutrophils | [address], | | | | | | [place] [address] | | | | + + + + + + | % | 16.2Comment: Testing | % | EXTERNAL | | | Lymphocytes | performed at [facility], [address] | | LAB | | | | [address], | | | | | | [place] [address] | | | | + + + + + + | % Monocytes | 7.9Comment: Testing | % | EXTERNAL | | | | performed at [facility], [address] | | LAB | | | | [address], | | | | | | [place] [address] | | | | + + + + + + | % | 3.0Comment: Testing | % | EXTERNAL | | | Eosinophils | performed at [facility], [address] | | LAB | | | | [address], | | | | | | [place] [address] | | | | + + + + + + | % Basophils | 0.7Comment: Testing | % | EXTERNAL | | | | performed at [facility], [address] | | LAB | | | [address], | | | | | | [place] [address] | | | | + + + [...] | | | | | [place] [address] | | | | + + + + + + | Absolute | 0.6Comment: Testing | 0 - 0.8 K/uL | EXTERNAL | | | Monocytes | performed at [facility], [address] | | LAB | | | | [address], | | | | | | [place] [address] | | | | + + + + + + | Absolute | 0.2Comment: Testing | 0 - 0.5 K/uL | EXTERNAL | | | Eosinophils | performed at [facility], [address] | | LAB | | | | [address], | | | | | | [place] [address] | | | | + + + + + + | Absolute | 0.1Comment: Testing | 0 - 0.1 K/uL | EXTERNAL | | | Basophils | performed at [facility], [address] | | LAB | | | | [address], | | | | | | [place] [address] | | | | + + + [...] EXTERNAL | | | | performed at [facility];[address] | | LAB | | | | [address];[place] | | | | | | [address] | | | | + + + [...] | | | | | [place] [address] | | | | + + + + + + | K | 3.5Comment: Testing | 3.5 - 4.9 | EXTERNAL | | | | performed at [facility], [address] | mmol/L | LAB | | | | [address], | | | | | | [place] [address] | | | | + + + + + + | Cl | 100Comment: Testing | 99 - 109 mmol/L | EXTERNAL | | | | performed at [facility], [address] | | LAB | | | | [address], | | | | | | [place] [address] | | | | + + + + + + | CO2 | 26Comment: Testing | 23 - 32 mmol/L | EXTERNAL | | | | performed at [facility], [address] | | LAB | | | | [address], | | | | | | [place] [address] | | | | + + + + + + | Anion Gap | 11Comment: Testing | 5 - 20 mmol/L | EXTERNAL | | | | performed at [facility], [address] | | LAB | | | | [address], | | | | | | [place] [address] | | | | + + + + + + | Glucose, | 112 (H)Comment: Testing | 65 - 99 mg/dL | EXTERNAL | | | Fasting | performed at [facility], [address] | | LAB | | | | [address], | | | | | | [place] [address] | | | | + + + + + + | BUN | 8Comment: Testing | 8 - 25 mg/dL | EXTERNAL | | | | performed at [facility], [address] | | LAB | | | | [address], | | | | | | [place] [address] | | | | + + + + + + | Creatinine | 0.65 (L)Comment: Testing | 0.70 - 1.30 | EXTERNAL | | | | performed at [facility], [address] | mg/dL | LAB | | | | [address], | | | | | | [place] [address] | | | | + + + + + + | BUN/Creatin | 12Comment: Testing | | EXTERNAL | | | ine Ratio | performed at [facility], [address] | | LAB | | | | [address], | | | | | | [place] [address] | | | | + + + + + + | Calcium | 9.2Comment: NOTE NEW | 8.5 - 10.5 | EXTERNAL | | | | REFERENCE RANGETesting | mg/dL | LAB | | | | performed at [facility], [address] | | | | | | [address], | | | | | | [place] [address] | | | | + + + [...] | | | | | | at [facility], [address] | | | | | | [facility], | | | | | | [place] [address] | | | | + + + [...] EXTERNAL | | | | performed at [facility], [address] | mmol/L | LAB | | | | [address], | | | | | | [place] [address] | | | | + + + + + + | K | 3.6Comment: Testing | 3.5 - 4.9 | EXTERNAL | | | | performed at [facility], [address] | mmol/L | LAB | | | | [address], | | | | | | [place], [place] [address] | | | | + + + + + + | Cl | 100Comment: Testing | 99 - 109 mmol/L | EXTERNAL | | | | performed at [facility], [address] | | LAB | | | | [address], | | | | | | [place], [place] [address] | | | | + + + + + + | CO2 | 27Comment: Testing | 23 - 32 mmol/L | EXTERNAL | | | | performed at [facility], [address] | | LAB | | | | [address], | | | | | | [place] [address] | | | | + + + + + + | Anion Gap | 10Comment: Testing | 5 - 20 mmol/L | EXTERNAL | | | | performed at [facility], [address] | | LAB | | | | [address], | | | | | | [place] [address] | | | | + + + + + + | Glucose, | 119 (H)Comment: Testing | 65 - 99 mg/dL | EXTERNAL | | | Fasting | performed at [facility], [address] | | LAB | | | | [address], | | | | | | [place] [address] | | | | + + + + + + | BUN | 11Comment: Testing | 8 - 25 mg/dL | EXTERNAL | | | | performed at [facility], [address] | | LAB | | | | [address], | | | | | | [place] [address] | | | | + + + + + + | Creatinine | 0.64 (L)Comment: Testing | 0.70 - 1.30 | EXTERNAL | | | | performed at [facility], [address] | mg/dL | LAB | | | | [address], | | | | | | [place] [address] | | | | + + + + + + | BUN/Creatin | 17Comment: Testing | | EXTERNAL | | | ine Ratio | performed at [facility], [address] | | LAB | | | | [address], | | | | | | [place] [address] | | | | + + + + + + | Calcium | 9.4Comment: NOTE NEW | 8.5 - 10.5 | EXTERNAL | | | | REFERENCE RANGETesting | mg/dL | LAB | | | | performed at [facility], [address] | | | | | | [address], | | | | | | [place] [address] | | | | + + + [...] | | | | | | at [facility], [address] | | | | | | [address], | | | | | | [place] [address] | | | | + + + [...] | | | | | [place] [address] | | | | + + + [...] | | | | | [place] [address] | | | | + + + + + + | Hematocrit, | 38.0 (L)Comment: Testing | 39.0 - 50.0 % | EXTERNAL | | | POC | performed at [facility], [address] | | LAB | | | | [address], | | | | | | [place] [address] | | | | + + + + + + | MCV | 99.2Comment: Testing | 80.0 - 100.0 fl | EXTERNAL | | | | performed at [facility], [address] | | LAB | | | | [address], | | | | | | [place] [address] | | | | + + + + + + | MCH | 33.3Comment: Testing | 27.0 - 34.0 pg | EXTERNAL | | | | performed at [facility], [address] | | LAB | | | | [address], | | | | | | [place] [address] | | | | + + + + + + | MCHC | 33.6Comment: Testing | 32.0 - 35.5 | EXTERNAL | | | | performed at [facility], [address] | g/dL | LAB | | | | [address], | | | | | | [place] [address] | | | | + + + + + + | RDW-CV | 56.9 (H)Comment: Testing | 37 - 53 fl | EXTERNAL | | | | performed at [facility], [address] | | LAB | | | | [address], | | | | | | [place] [address] | | | | + + + + + + | Platelet | 327Comment: Testing | 150 - 400 K/uL | EXTERNAL | | | Count | performed at [facility], [address] | | LAB | | | Plasma | [address], | | | | | | [place] [address] | | | | + + + + + + | MPV | 8.3Comment: Testing | fl | EXTERNAL | | | | performed at [facility], [address] | | LAB | | | | [address], | | | | | | [place] [address] | | | | + + + + + + | Differentia | AUTOMATEDComment: | | EXTERNAL | | | l Type | Testing performed at | | LAB | | | | [facility], [address] | | | | | | [place] | | | | | | [address] | | | | + + + + + + | % Segmented | 72.8Comment: Testing | % | EXTERNAL | | | | performed at [facility], [address] | | LAB | | | Neutrophils | [address], | | | | | | [place] [address] | | | | + + + + + + | % | 16.9Comment: Testing | % | EXTERNAL | | | Lymphocytes | performed at [facility], [address] | | LAB | | | | [address], | | | | | | [place] [address] | | | | + + + + + + | % Monocytes | 7.6Comment: Testing | % | EXTERNAL | | | | performed at [facility], [address] | | LAB | | | | [address], | | | | | | [place] [address] | | | | + + + + + + | % | 2.0Comment: Testing | % | EXTERNAL | | | Eosinophils | performed at [facility], [address] | | LAB | | | | [address], | | | | | | [place] [address] | | | | + + + + + + | % Basophils | 0.7Comment: Testing | % | EXTERNAL | | | | performed at [facility], [address] | | LAB | | | | [address], | | | | | | [place] [address] | | | | + + + + + + | Absolute | 6.9Comment: Testing | 1.9 - 7.4 K/uL | EXTERNAL | | | Segmented | performed at [facility], [address] | | LAB | | | Neutrophils | [address], | | | | | | [place] [address] | | | | + + + + + + | Absolute | 1.6Comment: Testing | 1.0 - 3.9 K/uL | EXTERNAL | | | Lymphocytes | performed at [facility], [address] | | LAB | | | | [address], | | | | | | [place] [address] | | | | + + + + + + | Absolute | 0.7Comment: Testing | 0 - 0.8 K/uL | EXTERNAL | | | Monocytes | performed at [facility], [address] | | LAB | | | | [address], | | | | | | [place] [address] | | | | + + + + + + | Absolute | 0.2Comment: Testing | 0 - 0.5 K/uL | EXTERNAL | | | Eosinophils | performed at [facility], [address] | | LAB | | | | [address], | | | | | | [place] [address] | | | | + + + + + + | Absolute | 0.1Comment: Testing | 0 - 0.1 K/uL | EXTERNAL | | | Basophils | performed at [facility], [address] | | LAB | | | | [address], | | | | | | [place] [address] | | | | + + + [...] EXTERNAL | | | | performed at [facility];[address] | | LAB | | | | [address];[place], [place] | | | | | | [address] | | | | + + + [...] | | | | | [place] [address] | | | | + + + + + + | K | 3.8Comment: Testing | 3.5 - 4.9 | EXTERNAL | | | | performed at [facility], [address] | mmol/L | LAB | | | | [address], | | | | | | [place] [address] | | | | + + + + + + | Cl | 98 (L)Comment: Testing | 99 - 109 mmol/L | EXTERNAL | | | | performed at [facility], [address] | | LAB | | | | [address], | | | | | | [place] [address] | | | | + + + + + + | CO2 | 26Comment: Testing | 23 - 32 mmol/L | EXTERNAL | | | | performed at [facility], [address] | | LAB | | | | [address], | | | | | | [place] [address] | | | | + + + + + + | Anion Gap | 11Comment: Testing | 5 - 20 mmol/L | EXTERNAL | | | | performed at [facility], [address] | | LAB | | | | [address], | | | | | | [place] [address] | | | | + + + + + + | Glucose, | 121 (H)Comment: Testing | 65 - 99 mg/dL | EXTERNAL | | | Fasting | performed at [facility], [address] | | LAB | | | | [address], | | | | | | [place] [address] | | | | + + + + + + | BUN | 10Comment: Testing | 8 - 25 mg/dL | EXTERNAL | | | | performed at [facility], [address] | | LAB | | | | [address], | | | | | | [place] [address] | | | | + + + + + + | Creatinine | 0.60 (L)Comment: Testing | 0.70 - 1.30 | EXTERNAL | | | | performed at [facility], [address] | mg/dL | LAB | | | | [address], | | | | | | [place] [address] | | | | + + + + + + | BUN/Creatin | 17Comment: Testing | | EXTERNAL | | | ine Ratio | performed at [facility], [address] | | LAB | | | | [address], | | | | | | [place] [address] | | | | + + + + + + | Calcium | 9.3Comment: NOTE NEW | 8.5 - 10.5 | EXTERNAL | | | | REFERENCE RANGETesting | mg/dL | LAB | | | | performed at [facility], [address] | | | | | | [address], | | | | | | [place] [address] | | | | + + + [...] | | | | | | at [facility], [address] | | | | | | [address], | | | | | | [place] [address] | | | | + + + [...] EXTERNAL | | | | performed at [facility], [address] | | LAB | | | | [address], | | | | | | [place] [address] | | | | + + + + + + | RED CELL | 3.77 (L)Comment: Testing | 4.20 - 5.70 | EXTERNAL | | | COUNT | performed at [facility], [address] | M/uL | LAB | | | | [address], | | | | | | [place] [address] | | | | + + + + + + | Hgb | 12.2 (L)Comment: Testing | 13.2 - 17.0 | EXTERNAL | | | | performed at [facility], [address] | g/dL | LAB | | | | [address], | | | | | | [place] [address] | | | | + + + + + + | Hematocrit, | 37.3 (L)Comment: Testing | 39.0 - 50.0 % | EXTERNAL | | | POC | performed at [facility], [address] | | LAB | | | | [address], | | | | | | [place] [address] | | | | + + + + + + | MCV | 98.9Comment: Testing | 80.0 - 100.0 fl | EXTERNAL | | | | performed at [facility], [address] | | LAB | | | | [address], | | | | | | [place] [address] | | | | + + + + + + | MCH | 32.3Comment: Testing | 27.0 - 34.0 pg | EXTERNAL | | | | performed at [facility], [address] | | LAB | | | | [address], | | | | | | [place] [address] | | | | + + + + + + | MCHC | 32.6Comment: Testing | 32.0 - 35.5 | EXTERNAL | | | | performed at [facility], [address] | g/dL | LAB | | | | [address], | | | | | | [place] [address] | | | | + + + + + + | RDW-CV | 58.6 (H)Comment: Testing | 37 - 53 fl | EXTERNAL | | | | performed at [facility], [address] | | LAB | | | | [address], | | | | | | [place] [address] | | | | + + + + + + | Platelet | 274Comment: Testing | 150 - 400 K/uL | EXTERNAL | | | Count | performed at [facility], [address] | | LAB | | | Plasma | [address], | | | | | | [place] [address] | | | | + + + + + + | MPV | 8.1Comment: Testing | fl | EXTERNAL | | | | performed at [facility], [address] | | LAB | | | | [address], | | | | | | [place] [address] | | | | + + + + + + | Differentia | AUTOMATEDComment: | | EXTERNAL | | | l Type | Testing performed at | | LAB | | | | [facility], [address] | | | | | | [place] | | | | | | [address] | | | | + + + + + + | % Segmented | 71.7Comment: Testing | % | EXTERNAL | | | | performed at [facility], [address] | | LAB | | | Neutrophils | [address], | | | | | | [place] [address] | | | | + + + + + + | % | 15.9Comment: Testing | % | EXTERNAL | | | Lymphocytes | performed at [facility], [address] | | LAB | | | | [address], | | | | | | [place] [address] | | | | + + + + + + | % Monocytes | 9.3Comment: Testing | % | EXTERNAL | | | | performed at [facility], [address] | | LAB | | | | [address], | | | | | | [place] [address] | | | | + + + + + + | % | 2.4Comment: Testing | % | EXTERNAL | | | Eosinophils | performed at [facility], [address] | | LAB | | | | [address], | | | | | | [place] [address] | | | | + + + + + + | % Basophils | 0.7Comment: Testing | % | EXTERNAL | | | | performed at [facility], [address] | | LAB | | | | [address], | | | | | | [place] [address] | | | | + + + + + + | Absolute | 6.7Comment: Testing | 1.9 - 7.4 K/uL | EXTERNAL | | | Segmented | performed at [facility], [address] | | LAB | | | Neutrophils | [address], | | | | | | [place] [address] | | | | + + + + + + | Absolute | 1.5Comment: Testing | 1.0 - 3.9 K/uL | EXTERNAL | | | Lymphocytes | performed at [facility], [address] | | LAB | | | | [address], | | | | | | [place] [address] | | | | + + + + + + | Absolute | 0.9 (H)Comment: Testing | 0 - 0.8 K/uL | EXTERNAL | | | Monocytes | performed at [facility], [address] | | LAB | | | | [address], | | | | | | [place] [address] | | | | + + + + + + | Absolute | 0.2Comment: Testing | 0 - 0.5 K/uL | EXTERNAL | | | Eosinophils | performed at [facility], [address] | | LAB | | | | [address], | | | | | | [place] [address] | | | | + + + + + + | Absolute | 0.1Comment: Testing | 0 - 0.1 K/uL | EXTERNAL | | | Basophils | performed at [facility], [address] | | LAB | | | | [address], | | | | | | [place] [address] | | | | + + + [...] EXTERNAL | | | | performed at [facility] | | LAB | | | | [address];[place] | | | | | | [address] | | | | + + + [...] EXTERNAL | | | | performed at [facility];[address] | mmol/L | LAB | | | | [address];[place] | | | | | | [address] | | | | + + + + + + | K | 4.0Comment: Testing | 3.5 - 4.9 | EXTERNAL | | | | performed at [facility];888 | mmol/L | LAB | | | | [address];[place] | | | | | | [address] | | | | + + + + + + | Cl | 102Comment: Testing | 99 - 109 mmol/L | EXTERNAL | | | | performed at [facility];[address] | | LAB | | | | [address];[place] | | | | | | [address] | | | | + + + + + + | CO2 | 27Comment: Testing | 23 - 32 mmol/L | EXTERNAL | | | | performed at [facility];[address] | | LAB | | | | [address];[place] | | | | | | [address] | | | | + + + + + + | Anion Gap | 10Comment: Testing | 5 - 20 mmol/L | EXTERNAL | | | | performed at [facility];[address] | | LAB | | | | [address];[place] | | | | | | [address] | | | | + + + + + + | Glucose, | 128 (H)Comment: Testing | 65 - 99 mg/dL | EXTERNAL | | | Fasting | performed at [facility];[address] | | LAB | | | | [address];[place] | | | | | | [address] | | | | + + + + + + | BUN | 9Comment: Testing | 8 - 25 mg/dL | EXTERNAL | | | | performed at [facility];[address] | | LAB | | | | [address];[place] | | | | | | [address] | | | | + + + + + + | Creatinine | 0.78Comment: Testing | 0.70 - 1.30 | EXTERNAL | | | | performed at [facility];[address] | mg/dL | LAB | | | | [address];[place] | | | | | | [address] | | | | + + + + + + | BUN/Creatin | 12Comment: Testing | | EXTERNAL | | | ine Ratio | performed at [facility];[address] | | LAB | | | | [address];[place] | | | | | | [address] | | | | + + + + + + | Calcium | 8.4 (L)Comment: NOTE NEW | 8.5 - 10.5 | EXTERNAL | | | | REFERENCE RANGETesting | mg/dL | LAB | | | | performed at [facility];[address] | | | | | | [address];[place] | | | | | | [address] | | | | + + + [...] | | | | | | at [facility];[address] [place] [address] | | | | | | [facility];[place] [address] | | | | + + + [...] 7:38AM | | | Referring Provider Line: [phone] ID: [id number] | | + + + [...] 2014 | | 7:38AM Referring Provider Line: [phone] ID: [id number] | | | |IMPRESSION: | |Unchanged head CT compared to 10/16/2014. | | | |RADIA | | | | Electronically signed by Mariya Calzada MD on Oct 17 2014 7:38AM Referring Provider Dian e: [phone] ID: [id number] | + + Potassium (10/16/2014 5:47 PM PST) + + + + + + | Component | Value | Ref Range | Performed | Pathologist | | | | | At | Signature | + + + + + + | K | 4.2Comment: Testing | 3.5 - 4.9 | EXTERNAL | | | | performed at [facility];[address] | mmol/L | LAB | | | | [address];[place], [place] | | | | | | [address] | | [...] 6:08AM | | | Referring Provider Line: [phone] ID: [id number] | | + + + [...] 2014 | | 6:08AM Referring Provider Line: [phone] ID: [id number] | | | |IMPRESSION: | | | |Right-sided drain has been removed. No evidence of interval hemorrhage or worsening mass ef fect. Hypodense subdural collection over the right frontal convexity has increased in size. Serial followup suggested. No other significant interval change. | | | | Electronically signed by Jimbo Mckeon MD on Oct 16 2014 6:08AM Referring Provider Line: [phone] ID: [id number] | + + External Lab: CBC (10/16/2014 4:09 AM PST) + + + + + + | Component | Value | Ref Range | Performed | Pathologist | | | | | At | Signature | + + + + + + | WBC | 8.7Comment: Testing | 3.8 - 11.0 K/uL | EXTERNAL | | | | performed at [facility], [address] | | LAB | | | | [address], | | | | | | [place] [address] | | | | + + + + + + | RED CELL | 3.62 (L)Comment: Testing | 4.20 - 5.70 | EXTERNAL | | | COUNT | performed at [facility], [address] | M/uL | LAB | | | | [address], | | | | | | [place] [address] | | | | + + + + + + | Hgb | 11.9 (L)Comment: Testing | 13.2 - 17.0 | EXTERNAL | | | | performed at [facility], [address] | g/dL | LAB | | | | [address], | | | | | | [place] [address] | | | | + + + + + + | Hematocrit, | 36.0 (L)Comment: Testing | 39.0 - 50.0 % | EXTERNAL | | | POC | performed at [facility], [address] | | LAB | | | | [address], | | | | | | [place] [address] | | | | + + + + + + | MCV | 99.4Comment: Testing | 80.0 - 100.0 fl | EXTERNAL | | | | performed at [facility], [address] | | LAB | | | | [address], | | | | | | [place] [address] | | | | + + + + + + | MCH | 32.9Comment: Testing | 27.0 - 34.0 pg | EXTERNAL | | | | performed at [facility], [address] | | LAB | | | | [address], | | | | | | [place] [address] | | | | + + + + + + | MCHC | 33.0Comment: Testing | 32.0 - 35.5 | EXTERNAL | | | | performed at [facility], [address] | g/dL | LAB | | | | [address], | | | | | | [place] [address] | | | | + + + + + + | RDW-CV | 59.5 (H)Comment: Testing | 37 - 53 fl | EXTERNAL | | | | performed at [facility], [address] | | LAB | | | | [address], | | | | | | [place] [address] | | | | + + + + + + | Platelet | 201Comment: Testing | 150 - 400 K/uL | EXTERNAL | | | Count | performed at [facility], [address] | | LAB | | | Plasma | [address], | | | | | | [place] [address] | | | | + + + + + + | MPV | 8.2Comment: Testing | fl | EXTERNAL | | | | performed at [facility], [address] | | LAB | | | | [address], | | | | | | [place] [address] | | | | + + + + + + | Differentia | AUTOMATEDComment: | | EXTERNAL | | | l Type | Testing performed at | | LAB | | | | [facility], [address] | | | | | | [place] | | | | | | [address] | | | | + + + + + + | % Segmented | 77.8Comment: Testing | % | EXTERNAL | | | | performed at [facility], [address] | | LAB | | | Neutrophils | [address], | | | | | | [place] [address] | | | | + + + + + + | % | 9.6Comment: Testing | % | EXTERNAL | | | Lymphocytes | performed at [facility], [address] | | LAB | | | | [address], | | | | | | [place] [address] | | | | + + + + + + | % Monocytes | 10.5Comment: Testing | % | EXTERNAL | | | | performed at [facility], [address] | | LAB | | | | [address], | | | | | | [place] [address] | | | | + + + + + + | % | 1.6Comment: Testing | % | EXTERNAL | | | Eosinophils | performed at [facility], [address] | | LAB | | | | [address], | | | | | | [place] [address] | | | | + + + + + + | % Basophils | 0.5Comment: Testing | % | EXTERNAL | | | | performed at [facility], [address] | | LAB | | | | [address], | | | | | | [place] [address] | | | | + + + + + + | Absolute | 6.8Comment: Testing | 1.9 - 7.4 K/uL | EXTERNAL | | | Segmented | performed at [facility], [address] | | LAB | | | Neutrophils | [address], | | | | | | [place] [address] | | | | + + + + + + | Absolute | 0.8 (L)Comment: Testing | 1.0 - 3.9 K/uL | EXTERNAL | | | Lymphocytes | performed at [facility], [address] | | LAB | | | | [address], | | | | | | [place] [address] | | | | + + + + + + | Absolute | 0.9 (H)Comment: Testing | 0 - 0.8 K/uL | EXTERNAL | | | Monocytes | performed at [facility], [address] | | LAB | | | | [address], | | | | | | [place] [address] | | | | + + + + + + | Absolute | 0.1Comment: Testing | 0 - 0.5 K/uL | EXTERNAL | | | Eosinophils | performed at [facility], [address] | | LAB | | | | [address], | | | | | | [place] [address] | | | | + + + + + + | Absolute | 0.0Comment: Testing | 0 - 0.1 K/uL | EXTERNAL | | | Basophils | performed at [facility], [address] | | LAB | | | | [address], | | | | | | [place] [address] | | | | + + + [...] | | | | | [place] [address] | | | | + + + + + + | K | 3.4 (L)Comment: Testing | 3.5 - 4.9 | EXTERNAL | | | | performed at [facility], [address] | mmol/L | LAB | | | | [address], | | | | | | [place] [address] | | | | + + + + + + | Cl | 102Comment: Testing | 99 - 109 mmol/L | EXTERNAL | | | | performed at [facility], [address] | | LAB | | | | [address], | | | | | | [place] [address] | | | | + + + + + + | CO2 | 27Comment: Testing | 23 - 32 mmol/L | EXTERNAL | | | | performed at [facility], [address] | | LAB | | | | [address], | | | | | | [place] [address] | | | | + + + + + + | Anion Gap | 12Comment: Testing | 5 - 20 mmol/L | EXTERNAL | | | | performed at [facility], [address] | | LAB | | | | [address], | | | | | | [place] [address] | | | | + + + + + + | Glucose, | 151 (H)Comment: Testing | 65 - 99 mg/dL | EXTERNAL | | | Fasting | performed at [facility], [address] | | LAB | | | | [address], | | | | | | [place] [address] | | | | + + + + + + | BUN | 8Comment: Testing | 8 - 25 mg/dL | EXTERNAL | | | | performed at [facility], [address] | | LAB | | | | [address], | | | | | | [place] [address] | | | | + + + + + + | Creatinine | 0.44 (L)Comment: Testing | 0.70 - 1.30 | EXTERNAL | | | | performed at [facility], [address] | mg/dL | LAB | | | | [address], | | | | | | [place] [address] | | | | + + + + + + | BUN/Creatin | 18Comment: Testing | | EXTERNAL | | | ine Ratio | performed at [facility], [address] | | LAB | | | | [address], | | | | | | [place] [address] | | | | + + + + + + | Calcium | 9.1Comment: NOTE NEW | 8.5 - 10.5 | EXTERNAL | | | | REFERENCE RANGETesting | mg/dL | LAB | | | | performed at [facility], [address] | | | | | | [address], | | | | | | [place] [address] | | | | + + + [...] | | | | | | at [facility], [address] | | | | | | [address], | | | | | | [place] [address] | | | | + + + [...] LAB | | | | performed at [facility];[address] | | | | | | [address];[place], [place] | | | | | | [address] | | | | + + + [...] EXTERNAL | | | | performed at [facility], [address] | | LAB | | | | [address], | | | | | | [place] [address] | | | | + + + + + + | RED CELL | 3.36 (L)Comment: Testing | 4.20 - 5.70 | EXTERNAL | | | COUNT | performed at [facility], [address] | M/uL | LAB | | | | [address], | | | | | | [place] [address] | | | | + + + + + + | Hgb | 11.1 (L)Comment: Testing | 13.2 - 17.0 | EXTERNAL | | | | performed at [facility], [address] | g/dL | LAB | | | | [address], | | | | | | [place] [address] | | | | + + + + + + | Hematocrit, | 34.0 (L)Comment: Testing | 39.0 - 50.0 % | EXTERNAL | | | POC | performed at [facility], [address] | | LAB | | | | [address], | | | | | | [place] [address] | | | | + + + + + + | MCV | 101.0 (H)Comment: | 80.0 - 100.0 fl | EXTERNAL | | | | Testing performed at | | LAB | | | | [facility], [address] | | | | | | [place] | | | | | | [address] | | | | + + + + + + | MCH | 33.1Comment: Testing | 27.0 - 34.0 pg | EXTERNAL | | | | performed at [facility], [address] | | LAB | | | | [address], | | | | | | [place] [address] | | | | + + + + + + | MCHC | 32.7Comment: Testing | 32.0 - 35.5 | EXTERNAL | | | | performed at [facility], [address] | g/dL | LAB | | | | [address], | | | | | | [place] [address] | | | | + + + + + + | RDW-CV | 59.1 (H)Comment: Testing | 37 - 53 fl | EXTERNAL | | | | performed at [facility], [address] | | LAB | | | | [address], | | | | | | [place] [address] | | | | + + + + + + | Platelet | 162Comment: Testing | 150 - 400 K/uL | EXTERNAL | | | Count | performed at [facility], [address] | | LAB | | | Plasma | [address], | | | | | | [place] [address] | | | | + + + + + + | MPV | 8.6Comment: Testing | fl | EXTERNAL | | | | performed at [facility], [address] | | LAB | | | | [address], | | | | | | [place] [address] | | | | + + + + + + | Differentia | AUTOMATEDComment: | | EXTERNAL | | | l Type | Testing performed at | | LAB | | | | [facility], [address] | | | | | | [place] | | | | | | [address] | | | | + + + + + + | % Segmented | 72.7Comment: Testing | % | EXTERNAL | | | | performed at [facility], [address] | | LAB | | | Neutrophils | [address], | | | | | | [place] [address] | | | | + + + + + + | % | 12.1Comment: Testing | % | EXTERNAL | | | Lymphocytes | performed at [facility], [address] | | LAB | | | | [address], | | | | | | [place] [address] | | | | + + + + + + | % Monocytes | 13.0Comment: Testing | % | EXTERNAL | | | | performed at [facility], [address] | | LAB | | | | [address], | | | | | | [place] [address] | | | | + + + + + + | % | 1.7Comment: Testing | % | EXTERNAL | | | Eosinophils | performed at [facility], [address] | | LAB | | | | [address], | | | | | | [place] [address] | | | | + + + + + + | % Basophils | 0.5Comment: Testing | % | EXTERNAL | | | | performed at [facility], [address] | | LAB | | | | [address], | | | | | | [place], [place] [address] | | | | + + + + + + | Absolute | 5.9Comment: Testing | 1.9 - 7.4 K/uL | EXTERNAL | | | Segmented | performed at [facility], [address] | | LAB | | | Neutrophils | [address], | | | | | | [place] [address] | | | | + + + + + + | Absolute | 1.0Comment: Testing | 1.0 - 3.9 K/uL | EXTERNAL | | | Lymphocytes | performed at [facility], [address] | | LAB | | | | [address], | | | | | | [place] [address] | | | | + + + + + + | Absolute | 1.1 (H)Comment: Testing | 0 - 0.8 K/uL | EXTERNAL | | | Monocytes | performed at [facility], [address] | | LAB | | | | [address], | | | | | | [place] [address] | | | | + + + + + + | Absolute | 0.1Comment: Testing | 0 - 0.5 K/uL | EXTERNAL | | | Eosinophils | performed at [facility], [address] | | LAB | | | | [address], | | | | | | [place] [address] | | | | + + + + + + | Absolute | 0.0Comment: Testing | 0 - 0.1 K/uL | EXTERNAL | | | Basophils | performed at [facility], [address] | | LAB | | | | [address], | | | | | | [place] [address] | | | | + + + [...] | | | | | [place] [address] | | | | + + + + + + | K | 3.8Comment: Testing | 3.5 - 4.9 | EXTERNAL | | | | performed at [facility], [address] | mmol/L | LAB | | | | [address], | | | | | | [place] [address] | | | | + + + + + + | Cl | 105Comment: Testing | 99 - 109 mmol/L | EXTERNAL | | | | performed at [facility], [address] | | LAB | | | | [address], | | | | | | [place] [address] | | | | + + + + + + | CO2 | 28Comment: Testing | 23 - 32 mmol/L | EXTERNAL | | | | performed at [facility], [address] | | LAB | | | | [address], | | | | | | [place] [address] | | | | + + + + + + | Anion Gap | 8Comment: Testing | 5 - 20 mmol/L | EXTERNAL | | | | performed at [facility], [address] | | LAB | | | | [address], | | | | | | [place] [address] | | | | + + + + + + | Glucose, | 112 (H)Comment: Testing | 65 - 99 mg/dL | EXTERNAL | | | Fasting | performed at [facility], [address] | | LAB | | | | [address], | | | | | | [place] [address] | | | | + + + + + + | BUN | 8Comment: Testing | 8 - 25 mg/dL | EXTERNAL | | | | performed at [facility], [address] | | LAB | | | | [address], | | | | | | [place] [address] | | | | + + + + + + | Creatinine | 0.51 (L)Comment: Testing | 0.70 - 1.30 | EXTERNAL | | | | performed at [facility], [address] | mg/dL | LAB | | | | [address], | | | | | | [place] [address] | | | | + + + + + + | BUN/Creatin | 16Comment: Testing | | EXTERNAL | | | ine Ratio | performed at [facility], [address] | | LAB | | | | [address], | | | | | | [place] [address] | | | | + + + + + + | Calcium | 8.5Comment: NOTE NEW | 8.5 - 10.5 | EXTERNAL | | | | REFERENCE RANGETesting | mg/dL | LAB | | | | performed at [facility], [address] | | | | | | [address], | | | | | | [place] [address] | | | | + + + [...] [address], | | | | | | [place] [address] | | | | + + + [...] EXTERNAL | | | | performed at [facility];[address] | mmol/L | LAB | | | | [address];[place] | | | | | | [address] | | | | + + + + + + | K | 3.5Comment: Testing | 3.5 - 4.9 | EXTERNAL | | | | performed at [facility];[address] | mmol/L | LAB | | | | [address];[place] | | | | | | [address] | | | | + + + + + + | Cl | 103Comment: Testing | 99 - 109 mmol/L | EXTERNAL | | | | performed at [facility];[address] | | LAB | | | | [address];[place] | | | | | | [address] | | | | + + + + + + | CO2 | 26Comment: Testing | 23 - 32 mmol/L | EXTERNAL | | | | performed at [facility];[address] | | LAB | | | | [address];[place] | | | | | | [address] | | | | + + + + + + | Anion Gap | 13Comment: Testing | 5 - 20 mmol/L | EXTERNAL | | | | performed at [facility];[address] | | LAB | | | | [address];[place] | | | | | | [address] | | | | + + + + + + | Glucose, | 134 (H)Comment: Testing | 65 - 99 mg/dL | EXTERNAL | | | Fasting | performed at [facility];[address] | | LAB | | | | [address];[place] | | | | | | [address] | | | | + + + + + + | BUN | 9Comment: Testing | 8 - 25 mg/dL | EXTERNAL | | | | performed at [facility];[address] | | LAB | | | | [address];[place] | | | | | | [address] | | | | + + + + + + | Creatinine | 0.75Comment: Testing | 0.70 - 1.30 | EXTERNAL | | | | performed at [facility];[address] | mg/dL | LAB | | | | [address];[place] | | | | | | [address] | | | | + + + + + + | BUN/Creatin | 12Comment: Testing | | EXTERNAL | | | ine Ratio | performed at [facility];[address] | | LAB | | | | [address];[place] | | | | | | [address] | | | | + + + + + + | Calcium | 8.3 (L)Comment: NOTE NEW | 8.5 - 10.5 | EXTERNAL | | | | REFERENCE RANGETesting | mg/dL | LAB | | | | performed at [facility];[address] | | | | | | [facility] [employer];[place], [place] | | | | | | [address] | | | | + + + [...] | | | | | | at [facility];[address];[place] [address] | | | | + + + [...] EXTERNAL | | | | performed at [facility];[address] | mmol/L | LAB | | | | [address];[place] | | | | | | [address] | | | | + + + [...] | | | Fingerstick | performed at [facility];[address] | | LAB | | | | [address];[place], [place] | | | | | | [address] | | | | + + + [...] 5.02 cm D-E Excursion: 1.80 cm E-F [place]: | | | 0.08 m/s EPSS: 0.51 [...] TV A Vishnu: 0.19 m/s TV Dec [place]: 1.11 m/s2 TV Dec Time: | | | 421.97 ms TV E Vishnu: 0.47 m/s TV E/A Ratio: 2.39 | | | Yarn Conditioner: GD Authenticated by: VISH ACOSTA MD Report [...] | Index (A-L): 25.12 ml/m2LAAs A2C: 17.63 lg1EKGCL A-L A2C: 49.96 mlLAESV MOD A2C: | | 47.06 mlLALs A2C: 5.28 cmLAAs A4C: 18.21 bi7ZWXWB A-L A4C: 56.04 mlLAESV MOD A4C: | | 48.84 mlLALs A4C: 5.02 cmD-E [place]cursion: 1.80 cmE-F [place]: 0.08 m/sEPSS: 0.51 | | cmHR: 50.85 BPMAV maxP.46 mmHgAV meanP.08 mmHgAV Vmax: 1.16 m/Dmitry Vmean: | | 0.83 m/Dmitry VTI: 24.68 cmAVA Vmax: 3.04 cm2AVA (VTI): 2.96 uv9WVJK Dopp: 1.67 | | l/habw4TJAB Dopp: 3.62 l/minHR: 49.54 BPMLVOT maxP.42 mmHgLVOT [...] 1.86 m/sTV A Vishnu: 0.19 m/sTV Dec [place]: 1.11 m/s2TV | | Dec Time: 421.97 msTV E Vishnu: 0.47 m/sTV E/A Ratio: 2.39 Yarn Conditioner: | | GDAuthenticated by: VISH RHONDADANIEL [facility] Date/Time: 10-14-2014 18:41:15 | | IMPRESSION: 1. [...] | |D-E [place]: 1.80 cm | |E-F [place]: 0.08 m/s | |EPSS: 0.51 cm | [...] A Vishnu: 0.19 m/s | |TV Dec [place]: 1.11 m/s2 | |TV Dec Time: 421.97 ms | |TV E Vishnu: 0.47 m/s | |TV E/A Ratio: 2.39 | | | |Yarn Conditioner: GD | |Authenticated by: VISH ACOSTA MD [...] | | | 5:24AM Referring Provider Line: [phone] ID: [id number] | | + + + [...] 2014 | | 5:24AM Referring Provider Line: [phone] ID: [id number] | | | |IMPRESSION: | [...] Oct 14 2014 5:24AM Referring Provider Line: [phone] ID: [id number] | + + External Lab: [...] | | | | | [place] [address] | | | | + + + + + + | RED CELL | 2.96 (L)Comment: Testing | 4.20 - 5.70 | EXTERNAL | | | COUNT | performed at [facility], [address] | M/uL | LAB | | | | [address], | | | | | | [place] [address] | | | | + + + + + + | Hgb | 9.7 (L)Comment: Testing | 13.2 - 17.0 | EXTERNAL | | | | performed at [facility], [address] | g/dL | LAB | | | | [address], | | | | | | [place] [address] | | | | + + + + + + | Hematocrit, | 29.4 (L)Comment: Testing | 39.0 - 50.0 % | EXTERNAL | | | POC | performed at [facility], [address] | | LAB | | | | [address], | | | | | | [place] [address] | | | | + + + + + + | MCV | 99.5Comment: Testing | 80.0 - 100.0 fl | EXTERNAL | | | | performed at [facility], [address] | | LAB | | | [address], | | | | | | [place] [address] | | | | + + + + + + | MCH | 32.7Comment: Testing | 27.0 - 34.0 pg | EXTERNAL | | | | performed at [facility], [address] | | LAB | | | | [address], | | | | | | [place] [address] | | | | + + + + + + | MCHC | 32.9Comment: Testing | 32.0 - 35.5 | EXTERNAL | | | | performed at [facility], [address] | g/dL | LAB | | | | [address], | | | | | | [place] [address] | | | | + + + + + + | RDW-CV | 59.1 (H)Comment: Testing | 37 - 53 fl | EXTERNAL | | | | performed at [facility], [address] | | LAB | | | | [address], | | | | | | [place] [address] | | | | + + + + + + | Platelet | 124 (L)Comment: Testing | 150 - 400 K/uL | EXTERNAL | | | Count | performed at [facility], [address] | | LAB | | | Plasma | [address], | | | | | | [place] [address] | | | | + + + + + + | MPV | 8.6Comment: Testing | fl | EXTERNAL | | | | performed at [facility], [address] | | LAB | | | | [address], | | | | | | [place] [address] | | | | + + + + + + | Differentia | AUTOMATEDComment: | | EXTERNAL | | | l Type | Testing performed at | | LAB | | | | [facility], [address] | | | | | | [place] | | | | | | [address] | | | | + + + + + + | % Segmented | 81.9Comment: Testing | % | EXTERNAL | | | | performed at [facility], [address] | | LAB | | | Neutrophils | [address], | | | | | | [place] [address] | | | | + + + + + + | % | 7.9Comment: Testing | % | EXTERNAL | | | Lymphocytes | performed at [facility], [address] | | LAB | | | | [address], | | | | | | [place], [place] [address] | | | | + + + + + + | % Monocytes | 9.3Comment: Testing | % | EXTERNAL | | | | performed at [facility], [address] | | LAB | | | | [address], | | | | | | [place] [address] | | | | + + + + + + | % | 0.7Comment: Testing | % | EXTERNAL | | | Eosinophils | performed at [facility], [address] | | LAB | | | | [address], | | | | | | [place] [address] | | | | + + + + + + | % Basophils | 0.2Comment: Testing | % | EXTERNAL | | | | performed at [facility], [address] | | LAB | | | | [address], | | | | | | [place] [address] | | | | + + + + + + | Absolute | 8.0 (H)Comment: Testing | 1.9 - 7.4 K/uL | EXTERNAL | | | Segmented | performed at [facility], [address] | | LAB | | | Neutrophils | [address], | | | | | | [place] [address] | | | | + + + + + + | Absolute | 0.8 (L)Comment: Testing | 1.0 - 3.9 K/uL | EXTERNAL | | | Lymphocytes | performed at [facility], [address] | | LAB | | | | [address], | | | | | | [place] [address] | | | | + + + + + + | Absolute | 0.9 (H)Comment: Testing | 0 - 0.8 K/uL | EXTERNAL | | | Monocytes | performed at [facility], [address] | | LAB | | | | [address], | | | | | | [place] [address] | | | | + + + + + + | Absolute | 0.1Comment: Testing | 0 - 0.5 K/uL | EXTERNAL | | | Eosinophils | performed at [facility], [address] | | LAB | | | | [address], | | | | | | [place] [address] | | | | + + + + + + | Absolute | 0.0Comment: Testing | 0 - 0.1 K/uL | EXTERNAL | | | Basophils | performed at [facility], [address] | | LAB | | | | [address], | | | | | | [place] [address] | | | | + + + [...] EXTERNAL | | | | performed at [facility], [address] | mmol/L | LAB | | | | [address], | | | | | | [place] [address] | | | | + + + + + + | K | 3.8Comment: Testing | 3.5 - 4.9 | EXTERNAL | | | | performed at [facility], [address] | mmol/L | LAB | | | | [address], | | | | | | [place] [address] | | | | + + + + + + | Cl | 109Comment: Testing | 99 - 109 mmol/L | EXTERNAL | | | | performed at [facility], [address] | | LAB | | | | [address], | | | | | | [place] [address] | | | | + + + + + + | CO2 | 22 (L)Comment: Testing | 23 - 32 mmol/L | EXTERNAL | | | | performed at [facility], [address] | | LAB | | | | [address], | | | | | | [place] [address] | | | | + + + + + + | Anion Gap | 9Comment: Testing | 5 - 20 mmol/L | EXTERNAL | | | | performed at [facility], [address] | | LAB | | | | [address], | | | | | | [place] [address] | | | | + + + + + + | Glucose, | 174 (H)Comment: Testing | 65 - 99 mg/dL | EXTERNAL | | | Fasting | performed at [facility], [address] | | LAB | | | | [address], | | | | | | [place] [address] | | | | + + + + + + | BUN | 9Comment: Testing | 8 - 25 mg/dL | EXTERNAL | | | | performed at [facility], [address] | | LAB | | | | [address], | | | | | | [place] [address] | | | | + + + + + + | Creatinine | 0.50 (L)Comment: Testing | 0.70 - 1.30 | EXTERNAL | | | | performed at [facility], [address] | mg/dL | LAB | | | | [address], | | | | | | [place] [address] | | | | + + + + + + | BUN/Creatin | 18Comment: Testing | | EXTERNAL | | | ine Ratio | performed at [facility], [address] | | LAB | | | | [address], | | | | | | [place] [address] | | | | + + + + + + | Calcium | 7.7 (L)Comment: NOTE NEW | 8.5 - 10.5 | EXTERNAL | | | | REFERENCE RANGETesting | mg/dL | LAB | | | | performed at [facility], [address] | | | | | | [place], | | | | | | [place] [address] | | | | + + + [...] | | | | | | at [facility], [address] | | | | | | [place], | | | | | | [place] [address] | | | | + + + [...] EXTERNAL | | | | performed at [facility] | | LAB | | | | [employer];[place], [place] | | | | | | [address] | | | | + + + [...] | | | | | | at [facility];[address] [place] [address] | | | | | | [facility];[place] [address] | | | | + + + [...] EXTERNAL | | | | performed at [facility];[address] | mmol/L | LAB | | | | [address];[place], [place] | | | | | | [address] | | | | + + + [...] Rad Conversion - 05/05/2019 12:20 AM LENARD LEEUR4//[id number] yearsXR | | CHEST 1 VIEW10/13/2014 3:50 [...] EXTERNAL | | | | performed at [facility], [address] | | LAB | | | | [address], | | | | | | [place] [address] | | | | + + + + + + | RED CELL | 2.98 (L)Comment: Testing | 4.20 - 5.70 | EXTERNAL | | | COUNT | performed at [facility], [address] | M/uL | LAB | | | | [address], | | | | | | [place] [address] | | | | + + + + + + | Hgb | 9.7 (L)Comment: Testing | 13.2 - 17.0 | EXTERNAL | | | | performed at [facility], [address] | g/dL | LAB | | | | [address], | | | | | | [place] [address] | | | | + + + + + + | Hematocrit, | 29.8 (L)Comment: Testing | 39.0 - 50.0 % | EXTERNAL | | | POC | performed at [facility], [address] | | LAB | | | | [address], | | | | | | [place] [address] | | | | + + + + + + | MCV | 100.1 (H)Comment: | 80.0 - 100.0 fl | EXTERNAL | | | | Testing performed at | | LAB | | | | [facility], [address] | | | | | | [place] | | | | | | [address] | | | | + + + + + + | MCH | 32.5Comment: Testing | 27.0 - 34.0 pg | EXTERNAL | | | | performed at [facility], [address] | | LAB | | | | [address], | | | | | | [place] [address] | | | | + + + + + + | MCHC | 32.5Comment: Testing | 32.0 - 35.5 | EXTERNAL | | | | performed at [facility], [address] | g/dL | LAB | | | | [address], | | | | | | [place] [address] | | | | + + + + + + | RDW-CV | 60.4 (H)Comment: Testing | 37 - 53 fl | EXTERNAL | | | | performed at [facility], [address] | | LAB | | | | [address], | | | | | | [place] [address] | | | | + + + + + + | Platelet | 107 (L)Comment: Testing | 150 - 400 K/uL | EXTERNAL | | | Count | performed at [facility], [address] | | LAB | | | Plasma | [address], | | | | | | [place] [address] | | | | + + + + + + | MPV | 8.6Comment: Testing | fl | EXTERNAL | | | | performed at [facility], [address] | | LAB | | | | [address], | | | | | | [place] [address] | | | | + + + + + + | Differentia | AUTOMATEDComment: | | EXTERNAL | | | l Type | Testing performed at | | LAB | | | | [facility], [address] | | | | | | [place] | | | | | | [address] | | | | + + + + + + | % Segmented | 78.6Comment: Testing | % | EXTERNAL | | | | performed at [facility], [address] | | LAB | | | Neutrophils | [address], | | | | | | [place] [address] | | | | + + + + + + | % | 9.1Comment: Testing | % | EXTERNAL | | | Lymphocytes | performed at [facility], [address] | | LAB | | | | [address], | | | | | | [place] [address] | | | | + + + + + + | % Monocytes | 11.3Comment: Testing | % | EXTERNAL | | | | performed at [facility], [address] | | LAB | | | | [address], | | | | | | [place] [address] | | | | + + + + + + | % | 0.5Comment: Testing | % | EXTERNAL | | | Eosinophils | performed at [facility], [address] | | LAB | | | | [address], | | | | | | [place] [address] | | | | + + + + + + | % Basophils | 0.5Comment: Testing | % | EXTERNAL | | | | performed at [facility], [address] | | LAB | | | | [address], | | | | | | [place] [address] | | | | + + + + + + | Absolute | 5.6Comment: Testing | 1.9 - 7.4 K/uL | EXTERNAL | | | Segmented | performed at [facility], [address] | | LAB | | | Neutrophils | [address], | | | | | | [place], [place] [address] | | | | + + + + + + | Absolute | 0.6 (L)Comment: Testing | 1.0 - 3.9 K/uL | EXTERNAL | | | Lymphocytes | performed at [facility], [address] | | LAB | | | | [address], | | | | | | [place] [address] | | | | + + + + + + | Absolute | 0.8Comment: Testing | 0 - 0.8 K/uL | EXTERNAL | | | Monocytes | performed at [facility], [address] | | LAB | | | | [address], | | | | | | [place] [address] | | | | + + + + + + | Absolute | 0.0Comment: Testing | 0 - 0.5 K/uL | EXTERNAL | | | Eosinophils | performed at [facility], [address] | | LAB | | | [address], | | | | | | [place] [address] | | | | + + + + + + | Absolute | 0.0Comment: Testing | 0 - 0.1 K/uL | EXTERNAL | | | Basophils | performed at [facility], [address] | | LAB | | | | [address], | | | | | | [place] [address] | | | | + + + [...] | | | | | [place] [address] | | | | + + + + + + | K | 3.4 (L)Comment: Testing | 3.5 - 4.9 | EXTERNAL | | | | performed at [facility], [address] | mmol/L | LAB | | | | [address], | | | | | | [place] [address] | | | | + + + + + + | Cl | 112 (H)Comment: Testing | 99 - 109 mmol/L | EXTERNAL | | | | performed at [facility], [address] | | LAB | | | | [address], | | | | | | [place] [address] | | | | + + + + + + | CO2 | 19 (L)Comment: Testing | 23 - 32 mmol/L | EXTERNAL | | | | performed at [facility], [address] | | LAB | | | | [address], | | | | | | [place] [address] | | | | + + + + + + | Anion Gap | 10Comment: Testing | 5 - 20 mmol/L | EXTERNAL | | | | performed at [facility], [address] | | LAB | | | | [address], | | | | | | [place] [address] | | | | + + + + + + | Glucose, | 133 (H)Comment: Testing | 65 - 99 mg/dL | EXTERNAL | | | Fasting | performed at [facility], [address] | | LAB | | | | [address], | | | | | | [place] [address] | | | | + + + + + + | BUN | 5 (L)Comment: Testing | 8 - 25 mg/dL | EXTERNAL | | | | performed at [facility], [address] | | LAB | | | | [address], | | | | | | [place] [address] | | | | + + + + + + | Creatinine | 0.47 (L)Comment: Testing | 0.70 - 1.30 | EXTERNAL | | | | performed at [facility], [address] | mg/dL | LAB | | | | [address], | | | | | | [place] [address] | | | | + + + + + + | BUN/Creatin | 11Comment: Testing | | EXTERNAL | | | ine Ratio | performed at [facility], [address] | | LAB | | | | [address], | | | | | | [place] [address] | | | | + + + + + + | Calcium | 7.8 (L)Comment: NOTE NEW | 8.5 - 10.5 | EXTERNAL | | | | REFERENCE RANGETesting | mg/dL | LAB | | | | performed at [facility], [address] | | | | | | [place], | | | | | | [place] [address] | | | | + + + [...] | | | | | | at [facility], [address] | | | | | | [place], | | | | | | [place] [address] | | | | + + + [...] LAB | | | | performed at [facility];[address] | | | | | | [address];[place], [place] | | | | | | [address] | | | | + + + [...] LAB | | | | performed at [facility] | | | | | | [address];[place], [place] | | | | | | [address] | | | | + + + [...] | | | | | performed at [facility] | | | | | | [address];[place], [place] | | | | | | [address] | | | | + + + [...] EXTERNAL | | | | performed at [facility], [address] | | LAB | | | | [address], | | | | | | [place] [address] | | | | + + + + + + | RED CELL | 3.39 (L)Comment: Testing | 4.20 - 5.70 | EXTERNAL | | | COUNT | performed at [facility], [address] | M/uL | LAB | | | | [address], | | | | | | [place] [address] | | | | + + + + + + | Hgb | 11.1 (L)Comment: Testing | 13.2 - 17.0 | EXTERNAL | | | | performed at [facility], [address] | g/dL | LAB | | | | [address], | | | | | | [place] [address] | | | | + + + + + + | Hematocrit, | 33.5 (L)Comment: Testing | 39.0 - 50.0 % | EXTERNAL | | | POC | performed at [facility], [address] | | LAB | | | | [address], | | | | | | [place] [address] | | | | + + + + + + | MCV | 98.6Comment: Testing | 80.0 - 100.0 fl | EXTERNAL | | | | performed at [facility], [address] | | LAB | | | | [address], | | | | | | [place] [address] | | | | + + + + + + | MCH | 32.7Comment: Testing | 27.0 - 34.0 pg | EXTERNAL | | | | performed at [facility], [address] | | LAB | | | | [address], | | | | | | [place] [address] | | | | + + + + + + | MCHC | 33.1Comment: Testing | 32.0 - 35.5 | EXTERNAL | | | | performed at [facility], [address] | g/dL | LAB | | | | [address], | | | | | | [place] [address] | | | | + + + + + + | RDW-CV | 59.5 (H)Comment: Testing | 37 - 53 fl | EXTERNAL | | | | performed at [facility], [address] | | LAB | | | | [address], | | | | | | [place] [address] | | | | + + + + + + | Platelet | 138 (L)Comment: Testing | 150 - 400 K/uL | EXTERNAL | | | Count | performed at [facility], [address] | | LAB | | | Plasma | [address], | | | | | | [place] [address] | | | | + + + + + + | MPV | 8.4Comment: Testing | fl | EXTERNAL | | | | performed at [facility], [address] | | LAB | | | | [address], | | | | | | [place] [address] | | | | + + + + + + | Differentia | AUTOMATEDComment: | | EXTERNAL | | | l Type | Testing performed at | | LAB | | | | [facility], [address] | | | | | | [place] | | | | | | [address] | | | | + + + + + + | % Segmented | 79.3Comment: Testing | % | EXTERNAL | | | | performed at [facility], [address] | | LAB | | | Neutrophils | [address], | | | | | | [place] [address] | | | | + + + + + + | % | 7.8Comment: Testing | % | EXTERNAL | | | Lymphocytes | performed at [facility], [address] | | LAB | | | | [address], | | | | | | [place] [address] | | | | + + + + + + | % Monocytes | 12.1Comment: Testing | % | EXTERNAL | | | | performed at [facility], [address] | | LAB | | | | [address], | | | | | | [place] [address] | | | | + + + + + + | % | 0.3Comment: Testing | % | EXTERNAL | | | Eosinophils | performed at [facility], [address] | | LAB | | | | [address], | | | | | | [place] [address] | | | | + + + + + + | % Basophils | 0.5Comment: Testing | % | EXTERNAL | | | | performed at [facility], [address] | | LAB | | | | [address], | | | | | | [place] [address] | | | | + + + + + + | Absolute | 7.2Comment: Testing | 1.9 - 7.4 K/uL | EXTERNAL | | | Segmented | performed at [facility], [address] | | LAB | | | Neutrophils | [address], | | | | | | [place] [address] | | | | + + + + + + | Absolute | 0.7 (L)Comment: Testing | 1.0 - 3.9 K/uL | EXTERNAL | | | Lymphocytes | performed at [facility], [address] | | LAB | | | | [address], | | | | | | [place] [address] | | | | + + + + + + | Absolute | 1.1 (H)Comment: Testing | 0 - 0.8 K/uL | EXTERNAL | | | Monocytes | performed at [facility], [address] | | LAB | | | | [address], | | | | | | [place] [address] | | | | + + + + + + | Absolute | 0.0Comment: Testing | 0 - 0.5 K/uL | EXTERNAL | | | Eosinophils | performed at [facility], [address] | | LAB | | | | [address], | | | | | | [place] [address] | | | | + + + + + + | Absolute | 0.0Comment: Testing | 0 - 0.1 K/uL | EXTERNAL | | | Basophils | performed at [facility], [address] | | LAB | | | | [address], | | | | | | [place] [address] | | | | + + [...] EXTERNAL | | | | performed at [facility], [address] | | LAB | | | | [address], | | | | | | [place] [address] | | | | + + + [...] | | | | | [place] [address] | | | | + + + + + + | K | 2.8 (L)Comment: Testing | 3.5 - 4.9 | EXTERNAL | | | | performed at [facility], [address] | mmol/L | LAB | | | | [address], | | | | | | [place] [address] | | | | + + + + + + | Cl | 105Comment: Testing | 99 - 109 mmol/L | EXTERNAL | | | | performed at [facility], [address] | | LAB | | | | [address], | | | | | | [place] [address] | | | | + + + + + + | CO2 | 23Comment: Testing | 23 - 32 mmol/L | EXTERNAL | | | | performed at [facility], [address] | | LAB | | | | [address], | | | | | | [place] [address] | | | | + + + + + + | Anion Gap | 9Comment: Testing | 5 - 20 mmol/L | EXTERNAL | | | | performed at [facility], [address] | | LAB | | | | [address], | | | | | | [place] [address] | | | | + + + + + + | Glucose, | 163 (H)Comment: Testing | 65 - 99 mg/dL | EXTERNAL | | | Fasting | performed at [facility], [address] | | LAB | | | | [address], | | | | | | [place] [address] | | | | + + + + + + | BUN | 7 (L)Comment: Testing | 8 - 25 mg/dL | EXTERNAL | | | | performed at [facility], [address] | | LAB | | | | [address], | | | | | | [place] [address] | | | | + + + + + + | Creatinine | 0.57 (L)Comment: Testing | 0.70 - 1.30 | EXTERNAL | | | | performed at [facility], [address] | mg/dL | LAB | | | | [address], | | | | | | [place] [address] | | | | + + + + + + | BUN/Creatin | 12Comment: Testing | | EXTERNAL | | | ine Ratio | performed at [facility], [address] | | LAB | | | | [address], | | | | | | [place] [address] | | | | + + + + + + | Calcium | 7.8 (L)Comment: NOTE NEW | 8.5 - 10.5 | EXTERNAL | | | | REFERENCE RANGETesting | mg/dL | LAB | | | | performed at [facility], [address] | | | | | | [address], | | | | | | [place] [address] | | | | + + + [...] [address], | | | | | | [place] [address] | | | | + + [...] EXTERNAL | | | | performed at [facility];[address] | | LAB | | | | [address];[place] | | | | | | [address] | | | | + + + + + + | RED CELL | 3.63 (L)Comment: Testing | 4.20 - 5.70 | EXTERNAL | | | COUNT | performed at [facility];[address] | M/uL | LAB | | | | [address];[place] | | | | | | [address] | | | | + + + + + + | Hgb | 10.9 (L)Comment: Testing | 13.2 - 17.0 | EXTERNAL | | | | performed at [facility];[address] | g/dL | LAB | | | | [address];[place] | | | | | | [address] | | | | + + + + + + | Hematocrit, | 34.9 (L)Comment: Testing | 39.0 - 50.0 % | EXTERNAL | | | POC | performed at [facility];[address] | | LAB | | | | [address];[place] | | | | | | [address] | | | | + + + + + + | MCV | 96.2Comment: Testing | 80.0 - 100.0 fl | EXTERNAL | | | | performed at [facility];[address] | | LAB | | | | [address];[place] | | | | | | [address] | | | | + + + + + + | MCH | 30.0Comment: Testing | 27.0 - 34.0 pg | EXTERNAL | | | | performed at [facility];[address] | | LAB | | | | [address];[place] | | | | | | [address] | | | | + + + + + + | MCHC | 31.2 (L)Comment: Testing | 32.0 - 35.5 | EXTERNAL | | | | performed at [facility];[address] | g/dL | LAB | | | | [address];[place] | | | | | | [address] | | | | + + + + + + | RDW-CV | 58.6 (H)Comment: Testing | 37 - 53 fl | EXTERNAL | | | | performed at [facility];[address] | | LAB | | | | [address];[place] | | | | | | [address] | | | | + + + + + + | Platelet | 164Comment: Testing | 150 - 400 K/uL | EXTERNAL | | | Count | performed at [facility];[address] | | LAB | | | Plasma | [address];[place] | | | | | | [address] | | | | + + + + + + | MPV | 7.8Comment: Testing | fl | EXTERNAL | | | | performed at [facility];[address] | | LAB | | | | [address];[place] | | | | | | [address] | | | | + + + + + + | Differentia | AUTOMATEDComment: | | EXTERNAL | | | l Type | Testing performed at | | LAB | | | | [facility];[address];[place] [address] | | | | + + + + + + | % Segmented | 72.3Comment: Testing | % | EXTERNAL | | | | performed at [facility];[address] | | LAB | | | Neutrophils | [address];[place] | | | | | | [address] | | | | + + + + + + | % | 13.2Comment: Testing | % | EXTERNAL | | | Lymphocytes | performed at [facility];[address] | | LAB | | | | [address];[place] | | | | | | [address] | | | | + + + + + + | % Monocytes | 13.4Comment: Testing | % | EXTERNAL | | | | performed at [facility];[address] | | LAB | | | | [address];[place] | | | | | | [address] | | | | + + + + + + | % | 0.3Comment: Testing | % | EXTERNAL | | | Eosinophils | performed at [facility];[address] | | LAB | | | | [address];[place] | | | | | | [address] | | | | + + + + + + | % Basophils | 0.8Comment: Testing | % | EXTERNAL | | | | performed at [facility];[address] | | LAB | | | | [address];[place] | | | | | | [address] | | | | + + + + + + | Absolute | 7.0Comment: Testing | 1.9 - 7.4 K/uL | EXTERNAL | | | Segmented | performed at [facility];[address] | | LAB | | | Neutrophils | [address];[place] | | | | | | [address] | | | | + + + + + + | Absolute | 1.3Comment: Testing | 1.0 - 3.9 K/uL | EXTERNAL | | | Lymphocytes | performed at [facility];[address] | | LAB | | | | [address];[place] | | | | | | [address] | | | | + + + + + + | Absolute | 1.3 (H)Comment: Testing | 0 - 0.8 K/uL | EXTERNAL | | | Monocytes | performed at [facility];[address] | | LAB | | | | [address];[place] | | | | | | [address] | | | | + + + + + + | Absolute | 0.0Comment: Testing | 0 - 0.5 K/uL | EXTERNAL | | | Eosinophils | performed at [facility];[address] | | LAB | | | | [address];[place] | | | | | | [address] | | | | + + + + + + | Absolute | 0.1Comment: Testing | 0 - 0.1 K/uL | EXTERNAL | | | Basophils | performed at [facility];[address] | | LAB | | | | [address];[place] | | | | | | [address] | | | | + + + [...] EXTERNAL LAB | | Testing performed at [facility];[address] [place] [address];[place] [address] MRSA PCR | | | NEGATIVE Testing performed at | | | [address];[place] [address] | | + + + + +---------+ [...] REMY | | | Testing performed at [facility], [address] [place], [place] | | | [address] | | + + + + +---------+ [...] EXTERNAL | | | | performed at [facility];[address] | | LAB | | | | [address];[place] | | | | | | [address] | | | | + + + [...] EXTERNAL | | | | performed at [facility] | | LAB | | | | [employer];[place], [place] | | | | | | [address] | | | | + + + [...] | | | Total | performed at [facility];[address] | | LAB | | | | [address];[place], [place] | | | | | | [address] | | | | + + + + + + | Albumin | 2.8 (L)Comment: Testing | 3.6 - 5.0 g/dL | EXTERNAL | | | | performed at [facility];[address] | | LAB | | | | [address];[place] | | | | | | [address] | | | | + + + + + + | Bilirubin | 1.6 (H)Comment: Testing | 0.1 - 1.5 mg/dL | EXTERNAL | | | Total | performed at [facility];[address] | | LAB | | | | [address];[place] | | | | | | [address] | | | | + + + + + + | Bilirubin | 0.6 (H)Comment: Testing | 0.0 - 0.3 mg/dL | EXTERNAL | | | Direct | performed at [facility];[address] | | LAB | | | | [address];[place] | | | | | | [address] | | | | + + + + + + | ALP, | 138 (H)Comment: Testing | 35 - 115 U/L | EXTERNAL | | | External | performed at [facility];[address] | | LAB | | | | [address];[place] | | | | | | [address] | | | | + + + + + + | AST | 61 (H)Comment: Testing | 10 - 45 U/L | EXTERNAL | | | | performed at [facility];[address] | | LAB | | | | [address];[place] | | | | | | [address] | | | | + + + + + + | ALT | 54Comment: Testing | 10 - 65 U/L | EXTERNAL | | | | performed at [facility];[address] | | LAB | | | | [address];[place] | | | | | | [address] | | | | + + + [...] 11 October 2014. | | | FINDINGS: Porcelain Slusher is unremarkable. The patient is post interval [...] examination: 11 October 2014. | | FINDINGS: Porcelain Slusher is unremarkable. The patient is post interval [...] EXTERNAL | | | | performed at [facility];[address] | mmol/L | LAB | | | | [address];[place], [place] | | | | | | [address] | | | | + + + + + + | K | 2.7 (LL)Comment: RESULT | 3.5 - 4.9 | EXTERNAL | | | | READ BACK BY:TAYA Price IN [place] | mmol/L | LAB | | | | AT 2012 BY FANNY ON | | | | | | [id number] performed | | | | | | at [facility];[address];[place] [address] | | | | + + + + + + | Cl | 102Comment: Testing | 99 - 109 mmol/L | EXTERNAL | | | | performed at [facility];[address] | | LAB | | | | [address];[place] | | | | | | [address] | | | | + + + + + + | CO2 | 25Comment: Testing | 23 - 32 mmol/L | EXTERNAL | | | | performed at [facility];[address] | | LAB | | | | [address];[place] | | | | | | [address] | | | | + + + + + + | Anion Gap | 14Comment: Testing | 5 - 20 mmol/L | EXTERNAL | | | | performed at [facility];[address] | | LAB | | | | [address];[place] | | | | | | [address] | | | | + + + + + + | Glucose, | 143 (H)Comment: Testing | 65 - 99 mg/dL | EXTERNAL | | | Fasting | performed at [facility];[address] | | LAB | | | | [address];[place] | | | | | | [address] | | | | + + + + + + | BUN | 7 (L)Comment: Testing | 8 - 25 mg/dL | EXTERNAL | | | | performed at [facility];[address] | | LAB | | | | [address];[place] | | | | | | [address] | | | | + + + + + + | Creatinine | 0.68 (L)Comment: Testing | 0.70 - 1.30 | EXTERNAL | | | | performed at [facility];[address] | mg/dL | LAB | | | | [address];[place] | | | | | | [address] | | | | + + + + + + | BUN/Creatin | 10Comment: Testing | | EXTERNAL | | | ine Ratio | performed at [facility];[address] | | LAB | | | | [address];[place] | | | | | | [address] | | | | + + + + + + | Calcium | 7.3 (L)Comment: NOTE NEW | 8.5 - 10.5 | EXTERNAL | | | | REFERENCE RANGETesting | mg/dL | LAB | | | | performed at [facility];[address] | | | | | | [address];[place] | | | | | | [address] | | | | + + + [...] | | | | | | at [facility];[address];[place] [address] | | | | + + + [...] | | LAB | | | | [facility];[address];[place] [address] | | | | + + + + + + | PCO2 ART | 33 (L)Comment: Testing | 35 - 45 mmHg | EXTERNAL | | | | performed at [facility];[address] | | LAB | | | | [address];[place] | | | | | | [address] | | | | + + + + + + | PO2 ART | 225 (H)Comment: Testing | 80 - 105 mmHg | EXTERNAL | | | | performed at [facility];[address] | | LAB | | | | [address];[place] | | | | | | [address] | | | | + + + + + + | HCO3 ART | 28 (H)Comment: Testing | 22 - 26 mmol/L | EXTERNAL | | | | performed at [facility];[address] | | LAB | | | | [address];[place] | | | | | | [address] | | | | + + + + + + | POC | 29 (H)Comment: Testing | 23 - 27 mEq/L | EXTERNAL | | | APPEARANCE | performed at [facility];[address] | | LAB | | | UA | [address];[place] | | | | | | [address] | | | | + + + + + + | Base | 6 (H)Comment: Testing | 0 - 3 mEq/L | EXTERNAL | | | Excess, | performed at [facility];[address] | | LAB | | | Arterial | [address];[place] | | | | | | [address] | | | | + + + + + + | O2 SAT ART | 100 (H)Comment: Testing | 95 - 98 % | EXTERNAL | | | | performed at [place] [facility];[address] | | LAB | | | | [address];[place] | | | | | | [address] | | | | + + + + + + | Sodium, POC | 138Comment: Testing | 135 - 145 mEq/L | EXTERNAL | | | | performed at [facility];[address] | | LAB | | | | [address];[place] | | | | | | [address] | | | | + + + + + + | Potassium, | 2.6 (LL)Comment: Testing | 3.5 - 5.0 mEq/L | EXTERNAL | | | POC | performed at [facility];[address] | | LAB | | | | [address];[place] | | | | | | [address] | | | | + + + + + + | Ionized | 0.98 (L)Comment: Testing | 1.12 - 1.32 | EXTERNAL | | | Calcium, | performed at [facility];888 | mmol/L | LAB | | | POC | [address];[place] | | | | | | [address] | | | | + + + + + + | Glucose, | 146 (H)Comment: Testing | 65 - 99 mg/dL | EXTERNAL | | | POC | performed at [facility];[address] | | LAB | | | | [address];[place] | | | | | | [address] | | | | + + + + + + | Hematocrit, | 35 (L)Comment: Testing | 40.0 - 50.0 % | EXTERNAL | | | POC | performed at [facility];[address] | | LAB | | | | [address];[place] | | | | | | [address] | | | | + + + + + + | Hemoglobin, | 11.9 (L)Comment: Testing | 13.7 - 16.7 | EXTERNAL | | | POC | performed at [facility];888 | g/dL | LAB | | | | [address];[place] | | | | | | [address] | | | | + + + [...] of fall | + + | Seizure ([facility]) Other convulsions | + + | Alcohol withdrawal ([facility]) Alcohol withdrawal | + + | Cerebral edema (HCC) Cerebral edema | + + | Subdural hematoma, post-traumatic, sequela | + + | Traumatic brain injury, closed, sequela | + + documented in this encounter
--- OUTSIDE RECORDS SUMMARY | ~2019-09-09 | XMS | Encounter Summary ---
Demographics + + + | Address | [address] | | | [place] [address] | + + + | Home Phone [...] Team Providers + +------+ + | Care Orthopedic Technician Name | Role | Phone | [...] | OP [address] | [place] [address] | | | | | [place] | [phone] | | | | | [address] | | | | | | [phone] | Ha Herrmann, | | | | | | PRODUCT APPLICATIONS ENGINEER [address] | | | | | | [place] [address] | | | | | | [phone] | | | | | | | [...] +----+---+ + + | | 0 | Giddings | | | | 9 | 43-degrees [...] +----+---+ + + | | 1 | Giddings off | | | | 0 | [...] 20 gauge; other (see comments); | | Cash Application Clerk | | | lost patency; 06/22/19; 1003 [...]
--- OUTSIDE RECORDS SUMMARY | ~2019-09-09 | XMS | Clinical Summary ---
Demographics + + + | Address | [address] | | | [place] [address] | + + + | Home Phone | | + + + | Preferred Language | Unknown | + + + | Marital Status | | + + + | Mandaeism Affiliation | Unknown | + + + | Race | Unknown | + + + | Ethnic Group | Unknown | + + + Author + + + | Author | [facility] | | | and Olegarioana | + + + | Organization | [facility] | | | [...] Team Providers + +------+ + | Care Conche Operator Name | Role | Phone | [...] | vancomycin, and cefepime at [facility], now hemodynamically | | stable- Has urinary source, so will treat with IV ceftriaxone and | | await cultures from [facility] | + + + + + + [...] planning to get him into SNF on [facility] | | reservation | + + [...] Herrmann, | | | | | | SENIOR MANAGER CREATIVE SERVICES | | +--------+ + + + + [...] | | | | | | ([facility]); Other closed | | | | [...] | | | | | | ([facility]); Closed | | | | | [...] MCCAIN | | | 223.58 | | [id number]: Qty: 1 | | Ulna | SYNTHES - | | | 1 / / | | on 06/19/2019 by Kwabena, | | | SYNT | | | | | MD Tony at [facility] | | | | | | | | [facility] | | | | | | | + +-------+--------+ +--------+--------+--------+ | Screw Crtx Slf-Tp Ss 3.5x20mm | Screw | Right: | JJHCS DEPUY | | | 204.82 | | - [id number]: Qty: | | Ulna | SYNTHES - | | | / / | | 3 on 06/19/2019 by Kwabena, | | | SYNT | | | | | MD Tony at [facility] | | | | | | | | [facility] | | | | | | | + +-------+--------+ +--------+--------+--------+ | Screw Crtx Slf-Tp Ss 3.5x22mm | Screw | Right: | JJ[facility]CS DEPUY | | | 204.82 | | - [id number]: Qty: | | Ulna | SYNTHES - | | | 2 / / | | 2 on 06/19/2019 by Kwabena, | | | SYNT | | | | | MD Tony at [facility] | | | | | | | | [facility] | | | | | | | + +-------+--------+ +--------+--------+--------+ | Screw Crtx Slf-Tp Ss 3.5x24mm | Screw | Right: | [facility] DEPUY | | | 204.82 | | - [id number]: Qty: | | Ulna | SYNTHES - | | | 4 / / | | 1 on 06/19/2019 by Kwabena, | | | SYNT | | | | | MD Tony at [facility] | | | | | | | | [facility] | | | | | | | + +-------+--------+ +--------+--------+--------+ | Screw Crtx Slf-Tp 2.7x18mm - | Screw | Right: | ChristinaJS DEP | | | 202.81 | | [id number]: Qty: 1 | | Ulna | SYNTHES - | | | 8 / / | | on 06/19/2019 by Kwabena, | | | SYNT | | | | | MD Tony at [facility] | | | | | | | | [facility] | | | | | | | + +-------+--------+ +--------+--------+--------+ | Duragen 5"X7" - | | | NA UNKNOWN | | 01/18/ | [id number] | | [id number]: Qty: 1 on | | | | | 2016 | / | | 10/11/2014 by Arlette, | | | | | | /[id number] | | Anthony HENRIQUEZ MD | | | | | | 21 | + +-------+--------+ +--------+--------+--------+ | Algrft Dura Durgn Mtrx 3x3 | | Right: | [employer]TE[employer]RA | | 08/27/ | ID-330 | | Bx5 - [id number]: Qty: | | Brain | NEUROSCIENC | | 2016 | 5 / | | 1 on 05/28/2015 by Earl, | | | FRANCK - INNE | | | /[id number] | | Gloria Baumann MD | | | | | | 52 | + +-------+--------+ +--------+--------+--------+ | Mesh Grid Hcd 11x7.5 | | Right: | [employer] - | | | 015-20 | | - - | | Brain | MEDT | | | -4 / | | [id number]: Qty: 1 on | | | | | | / | | 05/28/2015 by Gloria Elliott | | | | | | | | L, MD | | | | | | | + +-------+--------+ +--------+--------+--------+ | Plate Dbl Y 3h 5mm - | | Right: | [employer] - | | | 015- | | [id number]: Qty: 2 on | | Brain | MEDT | | | 7 / | | 05/28/2015 by Gloria Elliott | | | | | | /[id number] | | L, MD | | | | | | 98 | + +-------+--------+ +--------+--------+--------+ | Screw S/Tap 1.6x4.0 - | | Right: | [employer] - | | | [id number] | | [id number]: Qty: 14 on | | Brain | MEDT | | | 0 / / | | 05/28/2015 by Gloria Elliott | | | | | | | | L, MD | | | | | | | + +-------+--------+ +--------+--------+--------+ | Plate Dogbone 8mm - | | Right: | [employer] - | | | 015-04 | | [id number]: Qty: 1 on | | Brain | MEDT | | | 2 / | | 05/28/2015 by Gloria Elliott | | | | | | /[id number] | | LMD | | | | | | 58 | + +-------+--------+ +--------+--------+--------+ | Screw S/Tap 1.6x4.0 - | | | MED[employer]IC - | | | [id number] | | [id number]: Qty: 8 on | | | MEDT | | | 0 | | 05/29/2015 by Gloria Elliott | | | | | | /[id number] | | L, MD | | | | | | 40 / | + +-------+--------+ +--------+--------+--------+ | Algrft Dura Durgn Mtrx 3x3 | | | [employer]TE[employer] | | 08/20/ | ID-330 | | Bx5 - [id number]: Qty: | | | NEUROSCIENC | | 2016 | 5 | | 1 on 05/29/2015 by Earl, | | | FRANCK - INNE | | | /[id number] | | Gloria Baumann MD | | | | | | 5 | | | | | | | | /[id number] | | | | | | | [...] J?MRN: | | | | | | [id number] | | | [id number] | | | riteri | | | [...] | | | St. | | | [place] | | | y | | | [...] | | | St. | | | [place] | | | y | | | [...] | | | St. | | | [place] | | | y | | | [...] | | | St. | | | [place] | | | y H. | | [...] | | | St. | | | [place] | | | y H. | | [...] | | | POC | Performed by [facility] [address] | | [place] | | | | [place], [place] | | HEART | | | | [address] | | MEDICAL | | | | [...] + + | FABIOLAVANCETravis KINA | [address] | [place] [address] | | | [facility] | | | | | [...] + + | Performing | Address | City/State/[facility] | Phone Number | | Organization | [...] Procedure Note | + + | Rosailo, Rad Results In - 06/19/2019 12:16 PM [...] + + | Performing | Address | City/State/[facility] | Phone Number | | Organization | [...] | | | | | | [facility] | | | | | | [place] | | | | | | [facility] | | | | | | B[facility]OD | | | | | | CENTER | | + + + + + + | Rh Type | PositiveComment: Patient | | REFERENCE | | | | is remote crossmatch | | [facility] | | | | eligible | | [...] + + + | Specimen Expiration Date: [id number] | REFERENCE LAB | | | [facility] | | | [facility] | | | [facility] | + + + + + + + + | Performing | Address | City/State/Zipcode | Phone Number | | Organization | | | | + + + + + | REFERENCE LAB | [address] | [place] [address] | [phone] | | [facility] | | | | | [facility] [...] | TRACEMASTER | | Duration:148 msP Horizontal [place]:21 degP Front [place]:46 degQ Onset:508 | | | msQRSD Interval:128 msQT Interval:356 msQTcB:443 msQTcF:412 msQRS | | | Horizontal [place]:88 degQRS [place]:-25 degI-40 Horizontal [place]:53 degI-40 | | | Front [place]:8 degT-40 Horizontal [place]: degT-40 Front [place]:178 degT | | | Horizontal [place]:28 degT Wave [place]:14 degS-T Horizontal [place]:25 degS-T | | | Front [place]:19 degSeverity:- ABNORMAL ECG -INTERP:SINUS | | | RHYTHMINTERP:RIGHT BUNDLE BRANCH BLOCKElectronically signed by: RASHEED, | | | LARRY Hopkins 06-19-2019 08:30:08 | | |QTcB:443 ms | | |QTcF:412 ms | | |QRS Horizontal [place]:88 deg | | |QRS [place]:-25 deg | | |I-40 Horizontal [place]:53 deg | | |I-40 Front [place]:8 deg | | |T-40 Horizontal [place]: deg | | |T-40 Front [place]:178 deg | | |T Horizontal [place]:28 deg | | |T Wave [place]:14 deg | | |S-T Horizontal [place]:25 deg | | |S-T Front [place]:19 deg | | |Severity:- ABNORMAL ECG - | | |INTERP:SINUS RHYTHM | | |INTERP:RIGHT BUNDLE BRANCH BLOCK | | |Electronically signed by: LARRY IQBAL 06-19-2019 08:30:08 | | + + + + + + + + | Performing | Address | City/State/Zipcode | Phone Number | | Organization | | | | + + + + + | [facility] | [address] | [place] [address] | [phone] | + + + + + CBC [...] PROVIDE NCE | | | | by [facility] [address], | | SACRED | | | | [place] [address] | | HEART | | | |Performed by [facility] [address], [place] [address] | | MEDICAL | | | | [...] + + | [facility] | [address] | [place] [address] | | | [facility] | | | | | [...] | | LABORATORY | | | | [facility] [address], | | [place] | | | | [place] [address] | | | | + + + + + + + + | Specimen | + + | Blood specimen | | (specimen) | + + + + + + + | Performing | Address | City/State/Zipcode | Phone Number | | Organization | | | | + + + + + | [facility]AN[facility] | [address] | [place] [address] | | | [facility] | | | | | [...] - 1.030 | PROVIDENCE | | | [place] | | | SACRED | | | [...] MAGGI | | | | Performed by [facility] [address] | | [place] | | | | [address], [place] | | HEART | | | | [address] | | MEDICAL | | | | [...] | [address] | [place] [address] | | | [facility] | | | | | [...] + + | Performing | Address | City/State/[facility] | Phone Number | | Organization | [...] | | | | | | [facility] | | | | | | [place] | | | | | | [facility] | | | | | | B[facility] | | | | | | CENTER | | + + + + + + | Rh Type | Positive | | REFERENCE | | | | | | [facility] | | | | | | [place] | | | | | | [facility] | | | | | | [facility]OD | | | | | | CENTER | | + + + + + + | Antibody | Negative | | REFERENCE | | | Screen | | | [facility] | | | | | | [place] [...] + + + | Specimen Expiration Date: [id number] | REFERENCE LAB | | | [facility] | | | [facility] | | | [facility] | + + + + + + + + | Performing | Address | City/State/Zipcode | Phone Number | | Organization | | | | + + + + + | REFERENCE LAB | [address] | [place], [place] | [phone] | | [facility] [place] | | | | | [facility] [...] | PROVIDENCE | | | | by [facility] [address], | | SACRED | | | | [place], [place] | | HEART | | | |Performed by [facility] [address] [place] [place] [place] [address] | | MEDICAL | | | | [...] SACRED | [address] | [place] [address] | | | [facility] | | | | | [...] | | | | | seconds.Performed by [facility] | | | | | | [address], | | | | | | [place] [address] | | | | + + + + + + + + | Specimen | + + | Blood specimen | | (specimen) | + + + + + + + | Performing | Address | City/State/Zipcode | Phone Number | | Organization | | | | + + + + + | [facility] | [address] | [place] [address] | | | [facility] | | | | | LABORATORY [place] | | | | + + + [...] CENTER | | | | 3.5Performed by [facility] [address] | | LABORATORY | | | | [address], [place] | | [place] | | | | [id number] | | | | + + + + + + + + | Specimen | + + | Blood specimen | | (specimen) | + + + + + + + | Performing | Address | City/State/Zipcode | Phone Number | | Organization | | | | + + + + + | [facility] | [address] | [place] [address] | | | [facility] | | | | | [...] | | | Venous | Performed by [facility] [address] | mmol/L | SACRED | | | | [address] [place], [place] | | HEART | | | | [address] | | MEDICAL | | | | [...] + + | [facility] | [address] | [place] [address] | | | [facility] | | | | | [...] | PROVIDENCE | | | SERUM/PLASM | [facility] [address], | | SACRED | | | A | [place] [address] | | HEART | | | |Performed by [facility] [address], [place] [address] | | MEDICAL | | | | [...] SACRED | [address] | [place] [address] | | | [facility] | | | | | [...] | | LABORATORY | | | | [facility] [address], | | [place] | | | | [place] [address] | | | | + + + + + + + + | Specimen | + + | Blood specimen | | (specimen) | + + + + + + + | Performing | Address | City/State/Zipcode | Phone Number | | Organization | | | | + + + + + | [facility] | [address] | [place] [address] | | | [facility] | | | | | [...] +---------+--------+ | [place]ICA[place] | MEDICA | [id number] | 09/20/19 | [phone] | | Medica | | | [place] | | 18-Pre | 2 | | id | | | PLUS | | sent | | | | + +--------+ +--------+ +---------+--------+ | [facility] | IHS | [id number] | 03/21/19 | | | Indemn | [...] Person | Self | [birth year] | [address] | | [place]le [place] | al/Fam | | 1961 | [phone] | [place], | | | [place] | | | [address] (Home) | [place] [address] | + +--------+ +--------+ + + Advance Directives + + + + + | Type | Date Recorded | Patient | Explanation | | | | Medical Nurse | | + + + + + | Power of | | | | | Wildlife Removal Specialist | | | | + + + [...]
--- OUTSIDE RECORDS SUMMARY | ~2019-09-09 | XMS | Encounter Summary ---
Demographics + + + | Address | [address] | | | [place] [address] | + + + | Home Phone [...] Team Providers + +------+ + | Care Cork Tile Floor Layer Name | Role | Phone | + [...] Provider Unknown | | | | | [phone] | [phone] | | | | | | | [...]
--- OUTSIDE RECORDS SUMMARY | ~2019-09-09 | XMS | Encounter Summary ---
Demographics + + + | Address | [address] | | | [place] [address] | + + + | Home Phone [...] Author + + + | Author | [facility] | + + + | Organization | [facility] | + + + | [...] Team Providers + +------+ + | Care Label Press Operator Name | Role | Phone [...] | | | | [place], | [place], [place] | office) | | | | [place] [address] | [address] | | | | | [phone] | | | +--------+ + + + [...]
--- OUTSIDE RECORDS SUMMARY | ~2019-09-09 | XMS | Encounter Summary ---
Demographics + + + | Address | [address] | | | [place] [address] | + + + | Home Phone [...] Team Providers + +------+ + | Care Appointment Coordinator Name | Role | Phone | + +------+ + PCP | Unavailable | + +------+ + Encounter Details +--------+ + + + + | Date | Type | Department | Care Team | Description | +--------+ + + + + | 12/17/ | Abstract | [facility] | Azeem Dietrich | | | 2011 | | [place] [address] [address] | | | | | [address] | [place], [place] | | | | | Mailcode: [id number] | [address] | | | | | [facility] | [phone] | | | | | and [address], | | | | | | [address] | | | | | | [place], [place] | | | | | | [address] | | | | | | [phone] | | | +--------+ + + + [...]
--- OUTSIDE RECORDS SUMMARY | ~2019-09-09 | XMS | Encounter Summary ---
Demographics + + + | Address | [address] | | | [place] [address] | + + + | Home Phone [...] Team Providers + +------+ + | Care Band Cutting Machine Operator Name | Role | Phone | + +------+ + PCP | Unavailable | + +------+ + Encounter Details +--------+ + + + + | Date | Type | Department | Care Team | Description | +--------+ + + + + | 07/18/ | Hospital | [facility] | Conversion | Intracranial injury | | 2015 | Encounter | [facility] [address] | Transaction, | of other and | | | | [address] | Provider Unknown | unspecified nature, | | | | [place], [place] | | without mention of | | | | [address] | (Fax) | open intracranial | | | | [phone] | | wound, unspecified | | | [...]
--- OUTSIDE RECORDS SUMMARY | ~2019-09-09 | XMS | Encounter Summary ---
Demographics + + + | Address | [address] | | | [place] [address] | + + + | Home Phone [...] Team Providers + +------+ + | Care Stocking And Box Shop Supervisor Name | Role | Phone | + +------+ + PCP | Unavailable | + +------+ + Encounter Details +--------+ + + + + | Date | Type | Department | Care Team | Description | +--------+ + + + + | 09/04/ | Hospital | [facility] | Conversion | Pain | | 2014 | Encounter | CONVERSION [address] | Transaction, | | | | | [address] | Provider Unknown | | | | | [place], [place] | [phone] | | | | | [address] | | | | | | [phone] | | | +--------+ + + + [...]
--- OUTSIDE RECORDS SUMMARY | ~2019-09-09 | XMS | Encounter Summary ---
Demographics + + + | Address | [address] | | | [place] [address] | + + + | Home Phone [...] Team Providers + +------+ + | Care Electric Motor Assembler Name | Role | Phone | [...] | Transcriptions | + + | Interface, Backend Python Developer In - 04/16/2006 1:08 AM PDT | | [address] | | [place], [place] [id number] | | [facility] RECORDMed Rec No.: | | [id number] Date: [...] be done | | [place] We were happy to splint him if [...] isgoing to follow up | | in [place], although, if cares to come back here, wewill be happy to see him in Dr. | | Rodo Maldonado, adult orthopedic clinic.Wade Villalta M.D.FARTUN/ellyoD: 02/17/2003T: | | 02/17/2003 12:31 [id number] | |OPERATIONS PERFORMED: The patient was taken [...] is | |going to follow up in [place], although, if cares to come back here, we | |will be happy to see him in Dr. Rodo Maldonado, adult orthopedic clinic. | | | | | | | |Wade Villalta M.D. | | | |Donaldo | | | | P | |[phone] | + + documented in this encounter Visit Diagnoses Not on filedocumented in this encounter"
--- OUTSIDE RECORDS SUMMARY | ~2019-09-09 | XMS | Encounter Summary ---
Demographics + + + | Address | [address] | | | [place] [address] | + + + | Home Phone [...] Team Providers + +------+ + | Care Road Test Examiner Name | Role | Phone | + +------+ + PCP | Unavailable | + +------+ + Encounter Details +--------+ + + + + | Date | Type | Department | Care Team | Description | +--------+ + + + + | 08/30/ | Hospital [facility] | [facility] | En[facility] | [facility] | | | | | | CONV DEPT [address] | | | | | | [place], | | | | | | [place] [address] | | | | | | [phone] | | | +--------+ + + + [...]
--- OUTSIDE RECORDS SUMMARY | ~2019-09-09 | XMS | Clinical Summary ---
Demographics + + + | Address | [address] | | | [place] [address] | + + + | Home Phone [...] Team Providers + +------+ + | Care Human Resources Representative Name | Role | Phone | + +------+ + PCP | Unavailable | + +------+ + Source Comments BATSHEVA is fully live on both [facility] and [facility] In[facility] Allergies + + + + + + [...] | | | + +--------+ +--------+-------+---------+--------+ | [facility] | | xxxx | Effect | [...] | 1961 | [phone] | [place] [address] | | | [place] | | | 0 (Home) | | + +--------+ +--------+ + + | Astrid Sánchez | Agency | Self | [birth year] | | [address] | | [place] | | | 1961 | [phone] | [place] [address] | | | | | | 0 (Home) | | + +--------+ +--------+ + +
--- OUTSIDE RECORDS SUMMARY | ~2019-09-09 | XMS | Encounter Summary ---
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 Dr. Chong was not available for the surgery, secondary to a vt litary commitment, and I did see the patient in follow-up. The patient was then admitted to the [facility] on 05/28/2015 for an elective right-sided [...] the patient was transferred back to his longterm, [facility] in [facility] on 06/03/2015 Past Medical History Diagnosis Date Alcohol abuse Frequent falls Drug abuse Seizures (HCC) Other chronic pain Depression Skin abscess Anemia Hemiparesis (HCC) Past Surgical History Procedure Laterality Date Craniotomy Right 10/11/2014 Procedure: CRANIOTOMY - FOR BLEED; Surgeon: Anthony Chong MD; Location: [facility] IN OR; Service: Neurosurgery; Laterality: Right; Craniectomy Right 10/11/2014 Procedure: CRANIECTOMY; Surgeon: Anthony Chong MD; Location: [facility]; Ser vice: Neurosurgery; Laterality: Right; Cranial flap replacement Right 05/28/2015 Procedure: CRANIAL - FLAP REPLACEMENT; Surgeon: Livier Betancur MD; Location: [facility] OR; Service: Neurosurgery; Laterality: Right; Cranioplasty for cranial defect Right 05/29/2015 Procedure: CRANIOPLASTY; Surgeon: Livier Betancur MD; Location: [facility]; Service: Neurosurgery; Laterality: Right; Allergies Allergen [...] PLAN The patient was discharged to his longterm, the [facility] in [facility]. The patient was asked to return to the clinic in 2 weeks for removal of the right-sided sca lp diamond. 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 Follow up: Livier Betancur MD [address] [place] [address] [id number] In 2 weeks Staple removal [facility] [address] [place] [address] Medication List CHANGE how you take these [...] Josseline Mera RN Service: (none) Author Type: Color Repairer Filed: 06/03/15 1116 Date of Service: 06/03/151406 Status: Signed Automation Mechanic: Josseline Mera RN (Color Repairer) Disposition: [facility] Transportation: D Map through [employer]. All orders, signed AVS, and prescriptions have been faxed All DC paperwork completed Patient and family in agreement with discharge plan Josseline Mera onver alem Transaction, Provider Unknown - 06/03/2015 12:21 PM PDT Nurse Progress Note by Shannon Nguyen RN at 06/03/15 1221 Author: Shannon Nguyen RN Service: (none) Author Type: Registered Nurse Filed: 06/03/15 1224 Date of Service: 06/03/15 1221 Status: Signed Automation Mechanic: Shannon Nguyen RN (Registered Nurse) Pt discharged back to [facility] in [place]. Paperwork previously faxed. IV removed, belon gings with transport, talha in place. Left message for mother, notifying her of D/C. No c oncerns. SHANNON Nguyen RN onver alem Transaction, Provider Unknown - 06/03/2015 11:14 AM PDT Therapy Progress Note by Yazan Main PTA at 06/03/15 1114 Author: Yazan Main PTA Service: (none) Author Type: Billiard Player Filed: 06/03/15 1122 Date of Service: 06/03/15 1114 Status: Signed Automation Mechanic: Yazan Main PTA (Billiard Player) 06/03/15 1114 PT Last Visit PT Received [...] Alternating;Decreased robina;Scissoring;Ataxic;Narrow base Assistive Device Other (Comment) (HOOKER INSPECTOR) Activity Tolerance Activity Tolerance Patient limited by fatigue Plan Treatment/Interventions Continue per Primary PT POC Progress Progressing toward goals Recommendation Recommendations SNF PT recommendations were discussed and verified with supervising PT. Juhi Abel MA, CCC-MARKETING TECHNOLOGY SPECIALIST - 06/03/2015 9:07 AM PDTFormatting of this note might be different fr om the original. Therapy Progress Note by Juhi Gregory MA CCC-MARKETING TECHNOLOGY SPECIALIST at 06/03/15 09 Author: Juhi Gregory MA CCC-MARKETING TECHNOLOGY SPECIALIST Service: (none) Author Type: Speech and Grad Intern ologist Filed: 06/03/15906 Date of Service: 06/03/15906 Status: Signed Automation Mechanic: Juhi Gregory MA CCC-MARKETING TECHNOLOGY SPECIALIST (Speech and Language Pathologist) 06/03/15 0850 Swallowing Assessment Eval Swallowing Treatment Yes Thin Presentation Cup Oral Phase Thin WFL Pharyngeal Phase Cough - delayed [place] Presentation Cup Oral WFL Pharyngeal Phase Delayed swallow initiated Puree Presentation Spoon Oral Phase WFL Pharyngeal Delayed Swallow Recommendations Liquids Consistency Recommendations [place] thick Diet Consistency Recommendation Pureed Recommendations Dysphagia treatment;Feeding assist;Set up with meals;Check on patients freq uently throught out meals Risk for Aspiration Moderate Compensatory Swallowing Strategies Upright as possible for all oral intake;Remain upright f or 30 minutes after meals;Slow rate presentation;Small bites/sips;Eat/feed slowly Recommended Form of Meds Meds floated in puree Summary pt eating breakfast with RN in room when MARKETING TECHNOLOGY SPECIALIST entered. pt with delayed swallow but [...] Josseline Mera RN Service: (none) Author Type: Color Repairer Filed: 06/03/15907 Date of Service: 06/03/15906 Status: Signed Automation Mechanic: Josseline Mera RN (Color Repairer) Gladis Regan will accept Krueger back when appropriate. Paperwork on front of chart f or MD signature. Ken Rivera MD - 06/02/2015 10:55 AM PDT Progress Notes by Ken Foster MD at 06/02/15 105 Author: Ken Foster MD Service: Neurosurgery Author Type: Physician Filed: 06/02/15 1057 Date of Service: 06/02/151054 Status: Signed Automation Mechanic: Ken Foster MD (Physician) Subjective: POD#4 No [...] Therapy Progress Note by Mere Hardy MA CCC-MARKETING TECHNOLOGY SPECIALIST at 06/01/151625 Author: Mere Hardy MA CCC-MARKETING TECHNOLOGY SPECIALIST Service: (none) Author Type: Speech and Language Patholo gist Filed: 06/01/151625 Date of Service: 06/01/151625 Status: Signed Automation Mechanic: Mere Hardy MA CCC-MARKETING TECHNOLOGY SPECIALIST (Speech and Language Pathologist) 06/01/15 160 [...] upon palpation;Cou gh - delayed;Spontaneous multiple swallow [place] Presentation Cup;Self Fed Oral WFL Pharyngeal Phase No overt signs or symptoms of aspiration;Delayed swallow initiated;Decreas ed laryngeal elevation upon palpation Puree Presentation Self Fed;Spoon Oral Phase WFL Pharyngeal No overt signs or symptoms of aspiration;Delayed Swallow Dysphagia Mechanically Altered Presentation Spoon;Self Fed Oral Phase Prolonged mastication Pharyngeal Phase Cough - Immediate;Delayed Swallow;Decreased Laryngeal Elevation Recommendations Liquids Consistency Recommendations [place] thick Diet Consistency Recommendation Pureed Recommendations Dysphagia [...] monitoring;Patient/Family education; Assessment for upgrade Dysphagia Goals Environmental Health And Safety Manager Goals Safe/efficient oral intake Pt will have safe/efficient oral intake [place] thick liquids;Dysphagia advanced diet;With max cues Short Term Goals Tolerate liquid consistency;Follow swallow precautions Pt will tolerate tolerate liquid consistency [place] thick liquids;With max supervision;Goa l progressing Pt will follow swallow precautions With mod supervision;Goal progressing onver alem Transaction, Provider Unknown - 06/01/2015 12:40 PM PDT Progress Notes by Fede Bonner at 06/01/15 1240 Author: Fede Bonner Service: (none) Author Type: Filed: 06/01/15 1242 Date of Service: 06/01/151239 Status: Signed Automation Mechanic: Fede Bonner () Tony is from [place], but says he lives on the [facility]. Stated he has bee n [...] 06/01/15909 Date of Service: 06/01/15907 Status: Signed Automation Mechanic: Ken Foster MD (Physician) Subjective: POD#3 Transferred [...] could be returned to his care fac [facility] Wednesday or Wednesday. onversion Transact ion, Provider Unknown - 05/31/2015 12:04 PM PDTFormatting of this note might be different fr om the original. Progress Notes by Hany Templeton RD at 05/31/15 1204 Author: Hany Templeton RD Service: (none) Author Type: Registered Dietitian Filed: 05/31/15 120 Date of Service: 05/31/151203 Status: Signed Automation Mechanic: Hany Templeton RD (Registered Dietitian) 05/31/15 9053 Subjective Timepoint Admit (Triggers for dysphagia. ) Pt c/o Pt admitted for seizures, has hx of craniectiomy, is POD # 2R bggvc-yjrghez-ifzmzvz cranioplasty, POD # 1 R bone flap [...] dysphagia pureed, NT liquid, house diet per MARKETING TECHNOLOGY SPECIALIST recommend ations. Add magic cups to [...] 1929 Date of Service: 05/31/151115 Status: Signed Automation Mechanic: Ki Martinez PT (Physical Therapist) 05/31/15 1116 [...] 1306 Date of Service: 05/31/15917 Status: Signed Automation Mechanic: Livier Betancur MD (Physician) POD#2 The patient [...] could be returned to his care fac [facility]. onnarcisa Transactio n, Provider Unknown - 05/31/2015 8:55 AM PDT Case Management by TABITHA Sidhu at 05/31/15 0855 Author: TABITHA Sidhu Service: (none) Author Type: Land Surveying Manager Filed: 05/31/15 1438 Date of Service: 05/31/1555 Status: Addendum Automation Mechanic: TABITHA Sidhu (Land Surveying Manager) Related Notes: Original Note by TABITHA Sidhu (Land Surveying Manager) filed at 05/31/15 0856 Placed t/c to Dianna at [facility]. Left message requesting a return call as i have no t heard from her since I faxed the referral. Await her return call. Addendum: 1400: Received return call from Debora at [facility]. Pt is accepted for a dmit when he is medically stable. Tabitha Cooley PT - 05/30/2015 3:49 PM PDTFormatting of this note might be different from th e original. Therapy Progress Note by Keiry Weiss PT at 05/30/15 2669 Author: Keiry Weiss PT Service: (none) Author Type: Physical Therapist Filed: 05/30/15 180 Date of Service: 05/30/151548 Status: Signed Automation Mechanic: Keiry Weiss, PT (Physical Therapist) 05/30/15 1549 [...] most recently staying at [facility] in [place]. Pt was getti ng agitated with questions and not wanting to respond. Prior Function Level of [place] Assist with functional mobility;Assist with ADLs;Assist with [...] Barriers to Discharge Physical Deficits Impacting Functional [place];Self-care Deficit s Impacting Functional [place] 05/30/15 1549 PT Last Visit PT Received [...] Barriers to Discharge Physical Deficits Impacting Functional [place];Self-care Deficit s Impacting Functional [place] onversion Transa ction, Provider Unknown - 05/30/2015 3:10 PM PDT Therapy Progress Note by Carmela Wilcox MS CCC-MARKETING TECHNOLOGY SPECIALIST at 05/30/15 9686 Author: Carmela Wilcox MS CCC-MARKETING TECHNOLOGY SPECIALIST Service: (none) Author Type: Speech and Grad Intern ologist Filed: 05/30/15 3021 Date of Service: 09/10/15 1510 Status: Signed Automation Mechanic: Carmela Wilcox MS CCC-MARKETING TECHNOLOGY SPECIALIST (Speech and Language Pathologist) 05/30/15 1500 [...] Pharyngeal Phase Delayed swallow initiated;Cough - delayed [place] Presentation Cup;Self Fed Oral Increased Anterior to [...] Cough - Delayed Recommendations Liquids Consistency Recommendations [place] thick;Ice chips for oral comfort Diet Consistency [...] strategies Dysphagia Goals Custodial Goals Safe/efficient oral intake Pt will have safe/efficient oral intake [place] thick liquids;Dysphagia advanced diet;With max cues Short Term Goals Tolerate liquid consistency;Follow swallow precautions Pt will tolerate tolerate liquid consistency [place] thick liquids;With max supervision Pt will follow swallow precautions With mod supervision;New/revised goal RDStLivier bustamante - 05/30/2015 8:48 AM PDTFormatting of this note might be different from the or iginal. Progress Notes by Livier Betancur MD at 05/30/15847 Author: Livier Betancur MD Service: Neurosurgery Author Type: Physician Filed: 05/30/15 1230 Date of Service: 05/30/15847 Status: Signed Automation Mechanic: Livier Betancur MD (Physician) POD#1 The patient [...] Mendoza at 05/30/15639 Author: JENNIFER Mendoza Service: Associate Project Manager Author Type: Nurse Practitioner Filed: 05/30/15 1123 Date of Service: 05/30/15639 Status: Signed Automation Mechanic: JENNIFER Mendoza (Nurse Practitioner) [facility] Service: Associate Project Manager Progress Note [facility] 54 [facility] [...] 142 Date of Service: 05/29/151420 Status: Signed Automation Mechanic: Livier Betancur MD (Physician) ICU nurse states the patient seems more lethargic. I will plan a return to the OR now to e valuate the pressure present beneath the right-sided cranial flap. onversion Transactio n, Provider Unknown - 05/29/2015 1:24 PM PDT Case Management by TABITHA Sidhu at 05/29/15 1323 Author: TABITHA Sidhu Service: (none) Author Type: Land Surveying Manager Filed: 05/29/15 1323 Date of Service: 05/29/151323 Status: Signed Automation Mechanic: TABITHA Sidhu (Land Surveying Manager) 05/29/15 1328 Discharge Planning Evaluation Admitting Diagnosis Right wroasf-gyjpnjc-lnnvefeu cranioplasty Readmission Other (comment) Living Arrangements Other (Comment) (skilled nursing) Support Systems Parent Type of Residence care home facility ([facility]) Independent with ADL's No-comment Independent with Mobility No-comment (require w/c) Home Care Services No Mental Status Other (comment) (just starting to follow commands after surgery) Prior functional status Previously at [facility] and [facility]. Richelle is at [facility] and mother states that plan is to retun there. Anticipated Discharge Plan Plan communicated to patient/family Yes Resources Financial concerns No Transportation issues No Patient/Family concerns No Prescription Plan Yes Anticipated Disposition Facility Type care home facility [facility] Facility Other (comment) ([facility]) Met with: pt's mother Teressa who tells me she is the healthcare decision-maker for pt and discussed discharge planning, Pt is a 54 y.o., male s/p cranioplasty. Pt has been at [facility] for the last 2-3 months per mother. Plan is for pt to live with his mother donal ut he requires significant care at this time. E-faxed referral to Dianna at [facility]. Patient's PCP is: [facility] Patient's insurance:[place] Medicaid - [place] Coverage concerns: Medication coverage/concerns: Nahun'eliseo Bedside Delivery: Community resources utilized / needed: Assistance in transportation: may need ambulance transfer back to [place] Identification of any specific education / training: Barriers to Discharge / Alternative housing needed: Anticipated DCP: Back to [facility]. Referral faxed to [facility]. HAYES STEEN Livier Briseno - 05/29/2015 12:37 PM PDTFormatting of this note might be different from the or iginal. Progress Notes by Livier Betancur MD at 05/29/15 0404 Author: Livier Betancur MD Service: Neurosurgery Author Type: Physician Filed: 05/31/15 5548 Date of Service: 05/29/15 3638 Status: Addendum Automation Mechanic: Livier Betancur MD (Physician) Related Notes: Original Note by Livier Betancur MD (Physician) filed at 05/29/15 5672 EXAM: Patient does nod his head yes [...] Galan Service: Wound/Ostomy Care Author Type: Nurse Stamp Collector Filed: 05/29/15 1220 Date of Service: 05/29/151218 Status: Signed Automation Mechanic: Pelon Galan (Nurse Stamp Collector) Patient seen today for low Bon score. [...] 05/29/151209 Date of Service: 05/29/151209 Status: Signed Automation Mechanic: Debra Fitzpatrick RPH (Pharmacist) Renal Dosing Monitoring: [...] 1.30 mg/dL Final Comment: Testing performed at [facility], [address] [place] [address] Creatinine clearance cannot be calculated (Patient's most [...] 1003 Date of Service: 05/29/1554 Status: Signed Automation Mechanic: Livier Betancur MD (Physician) POD#1 The patient [...] 05/28/151119 Date of Service: 05/28/151119 Status: Signed Automation Mechanic: Joyce Hernandez RPH (Pharmacist) Clinical Pharmacy Note: Renal Monitoring Tony Mcguire 54 y.o. male Ht Readings from Last 1 Encounters: 05/28/15 1.778 m (5' 10") Wt Readings from Last 1 Encounters: 05/28/15 78.9 kg (173 lb 15.1 oz) CREATININE Date Value Ref Range Status 11/26/2014 0.62* 0.70 - 1.30 mg/dL Final Comment: Testing performed at [facility], [address] [place] [address] Creatinine clearance cannot be calculated (Patient's most recent sCr result is older than t he maximum 3 days allowed.) Pharmacy dosing for renal function per Dr. Rios. Currently, there are no medications needing to be adjusted. Pharmacy will continue to monit or for changes in medication orders and in renal function and adjust accordingly. Joyce Hernandez [facility] 05/28/2015 11:20 AM onver alem Transaction, Provider Unknown - 05/28/2015 11:17 AM PDT Nurse Progress Note by Anna Gates RN at 05/28/15 1117 Author: Anna Gates RN Service: (none) Author Type: Registered Nurse Filed: 05/28/15 1118 Date of Service: 05/28/15 1117 Status: Signed Automation Mechanic: Anna Gates RN (Registered Nurse) Report from Shayna at [facility] states that patient has been NPO [...] Date of Service: 05/28/15 1041 Status: Signed Automation Mechanic: Anna Gates RN (Registered Nurse) Lamine from the lab at [facility] to fax MRSA PCR results and [...] EXTERNAL | | | | performed at [facility];888 | mmol/L | LAB | | | | [facility];[place], [place] | | | | | | [address] | | | | + + + [...] EXTERNAL | | | | performed at [facility] | | LAB | | | | [address];[place], [place] | | | | | | [address] | | | | + + + [...] EXTERNAL | | | | performed at [facility], [address] | K/uL | LAB | | | | [address], | | | | | | [place] [address] | | | | + + + + + + | RED CELL | 3.20 (L)Comment: Testing | 4.20 - 5.70 | EXTERNAL | | | COUNT | performed at [facility], [address] | M/uL | LAB | | | | [address], | | | | | | [place] [address] | | | | + + + + + + | Hgb | 8.9 (L)Comment: Testing | 13.2 - 17.0 | EXTERNAL | | | | performed at [facility], [address] | g/dL | LAB | | | | [address], | | | | | | [place] [address] | | | | + + + + + + | Hematocrit, | 27.2 (L)Comment: Testing | 39.0 - 50.0 % | EXTERNAL | | | POC | performed at [facility], [address] | | LAB | | | | [address], | | | | | | [place] [address] | | | | + + + + + + | MCV | 85.1Comment: Testing | 80.0 - 100.0 fl | EXTERNAL | | | | performed at [facility], [address] | | LAB | | | | [address], | | | | | | [place] [address] | | | | + + + + + + | MCH | 27.7Comment: Testing | 27.0 - 34.0 pg | EXTERNAL | | | | performed at [facility], [address] | | LAB | | | | [address], | | | | | | [place] [address] | | | | + + + + + + | MCHC | 32.6Comment: Testing | 32.0 - 35.5 | EXTERNAL | | | | performed at [facility], [address] | g/dL | LAB | | | | [address], | | | | | | [place] [address] | | | | + + + + + + | RDW-CV | 49.0Comment: Testing | 37 - 53 fl | EXTERNAL | | | | performed at [facility], [address] | | LAB | | | | [address], | | | | | | [place] [address] | | | | + + + + + + | Platelet | 103 (L)Comment: Testing | 150 - 400 K/uL | EXTERNAL | | | Count | performed at [facility], [address] | | LAB | | | Plasma | [address], | | | | | | [place] [address] | | | | + + + + + + | MPV | 9.1Comment: Testing | fl | EXTERNAL | | | | performed at [facility], [address] | | LAB | | | | [address], | | | | | | [place] [address] | | | | + + + + + + | Differentia | AUTOMATEDComment: | | EXTERNAL | | | l Type | Testing performed at | | LAB | | | | [facility], [address] | | | | | | [place] | | | | | | [address] | | | | + + + + + + | % Segmented | 70.80Comment: Testing | % | EXTERNAL | | | | performed at [facility], [address] | | LAB | | | Neutrophils | [address], | | | | | | [place] [address] | | | | + + + + + + | % | 19.56Comment: Testing | % | EXTERNAL | | | Lymphocytes | performed at [facility], [address] | | LAB | | | | [address], | | | | | | [place] [address] | | | | + + + + + + | % Monocytes | 8.15Comment: Testing | % | EXTERNAL | | | | performed at [facility], [address] | | LAB | | | | [address], | | | | | | [place] [address] | | | | + + + + + + | % | 1.12Comment: Testing | % | EXTERNAL | | | Eosinophils | performed at [facility], [address] | | LAB | | | | [address], | | | | | | [place] [address] | | | | + + + + + + | % Basophils | 0.37Comment: Testing | % | EXTERNAL | | | | performed at [facility], [address] | | LAB | | | | [address], | | | | | | [place] [address] | | | | + + + + + + | Absolute | 4.40Comment: Testing | 1.90 - 7.40 | EXTERNAL | | | Segmented | performed at [facility], [address] | K/uL | LAB | | | Neutrophils | [address], | | | | | | [place] [address] | | | | + + + + + + | Absolute | 1.22Comment: Testing | 1.00 - 3.90 | EXTERNAL | | | Lymphocytes | performed at [facility], [address] | K/uL | LAB | | | | [address], | | | | | | [place] [address] | | | | + + + + + + | Absolute | 0.51Comment: Testing | 0.00 - 0.80 | EXTERNAL | | | Monocytes | performed at [facility], [address] | K/uL | LAB | | | | [address], | | | | | | [place] [address] | | | | + + + + + + | Absolute | 0.07Comment: Testing | 0.00 - 0.50 | EXTERNAL | | | Eosinophils | performed at [facility], [address] | K/uL | LAB | | | | [address], | | | | | | [place] [address] | | | | + + + + + + | Absolute | 0.02Comment: Testing | 0.00 - 0.10 | EXTERNAL | | | Basophils | performed at [facility], [address] | K/uL | LAB | | | | [address], | | | | | | [place] [address] | | | | + + + [...] EXTERNAL | | | | performed at [facility], [address] | | LAB | | | | [address], | | | | | | [place] [address] | | | | + + + [...] EXTERNAL | | | | performed at [facility], [address] | | LAB | [...] | | | | | [place] [address] | | | | + + + + + + | K | 3.8Comment: Testing | 3.5 - 4.9 | EXTERNAL | | | | performed at [facility], [address] | mmol/L | LAB | | | | [address], | | | | | | [place] [address] | | | | + + + + + + | Cl | 106Comment: Testing | 99 - 109 mmol/L | EXTERNAL | | | | performed at [facility], [address] | | LAB | | | | [address], | | | | | | [place] [address] | | | | + + + + + + | CO2 | 27Comment: Testing | 23 - 32 mmol/L | EXTERNAL | | | | performed at [facility], [address] | | LAB | | | | [address], | | | | | | [place] [address] | | | | + + + + + + | Anion Gap | 7Comment: Testing | 5 - 20 mmol/L | EXTERNAL | | | | performed at [facility], [address] | | LAB | | | | [address], | | | | | | [place] [address] | | | | + + + + + + | Glucose, | 99Comment: Testing | 65 - 99 mg/dL | EXTERNAL | | | Fasting | performed at [facility], [address] | | LAB | | | | [address], | | | | | | [place] [address] | | | | + + + + + + | BUN | 4 (L)Comment: Testing | 8 - 25 mg/dL | EXTERNAL | | | | performed at [facility], [address] | | LAB | | | | [address], | | | | | | [place] [address] | | | | + + + + + + | Creatinine | 0.48 (L)Comment: Testing | 0.70 - 1.30 | EXTERNAL | | | | performed at [facility], [address] | mg/dL | LAB | | | | [address], | | | | | | [place] [address] | | | | + + + + + + | BUN/Creatin | 8Comment: Testing | | EXTERNAL | | | ine Ratio | performed at [facility], [address] | | LAB | | | | [address], | | | | | | [place] [address] | | | | + + + + + + | Calcium | 8.3 (L)Comment: Testing | 8.5 - 10.5 | EXTERNAL | | | | performed at [facility], [address] | mg/dL | LAB | | | | [address] [facility], | | | | | | [place] [address] | | | | + + + [...] | | | | | | at [facility], [address] | | | | | | [facility], | | | | | | [place] [address] | | | | + + + + + + + + | Specimen | + + | Blood specimen | | (specimen) | + + + +---------+ + + | Performing | Address | City/State[facility] | Phone Number | | [...] EXTERNAL | | | | performed at [facility];[address] | mmol/L | LAB | | | | [address];[place] | | | | | | [address] | | | | + + + [...] EXTERNAL | | | | performed at [facility];[address] | | LAB | | | | [address] | | | | | | [address] | | | | + + + [...] EXTERNAL | | | | performed at [facility] | | LAB | | | | [address];[place] | | | | | | [address] | | | | + + + [...] drain | | | placement. 2. Improved eblhc-tf-sicl midline shift. RAD[facility] | | | Electronically signed by Joshua Rivera MD on May 30 2015 10:35AM | | | Referring Provider Line: [phone] ID: [id number] | | + + + [...] has improved. There is | | | wqvsm-wn-cawh midline shift measuring at least 5 mm [...] seen. Intracranial pneumocephalus has improved. There is bjpuj-gb-hppd midline shift | | measuring at least [...] interval subdural drain placement.2. | | Improved mcrpf-qc-rkam midline shift. RADIA Electronically signed by Joshua Rivera MD | | on May 30 2015 10:35AM Referring Provider Line: [phone] ID: [id number] | | | |Sinuses: Paranasal [...] molina bdural drain placement. | |2. Improved igizb-xa-ryxu midline shift. | | | |RADIA | | | | Electronically signed by Joshua Rivera MD on May 30 2015 10:35AM Referring Provider Line: [phone] ID: [id number] | + + PTT (05/30/2015 2:59 AM PDT) + + + + + + | Component | Value | Ref Range | Performed | Pathologist | | | | | At | Signature | + + + + + + | aPTT, | 33 (H)Comment: Testing | 23 - 32 seconds | EXTERNAL | | | Patient | performed at [facility];[address] | | LAB | | | | [address];[place], [place] | | | | | | [address] | | | | + + + [...] | | | | | performed at [facility];[address] | | | | | | [address] [facility];[place], [place] | | | | | | [address] | | | | + + + [...] EXTERNAL | | | | performed at [facility], [address] | K/uL | LAB | | | | [address], | | | | | | [place] [address] | | | | + + + + + + | RED CELL | 3.24 (L)Comment: Testing | 4.20 - 5.70 | EXTERNAL | | | COUNT | performed at [facility], [address] | M/uL | LAB | | | | [address], | | | | | | [place] [address] | | | | + + + + + + | Hgb | 8.8 (L)Comment: Testing | 13.2 - 17.0 | EXTERNAL | | | | performed at [facility], [address] | g/dL | LAB | | | | [address], | | | | | | [place] [address] | | | | + + + + + + | Hematocrit, | 27.5 (L)Comment: Testing | 39.0 - 50.0 % | EXTERNAL | | | POC | performed at [facility], [address] | | LAB | | | | [address], | | | | | | [place] [address] | | | | + + + + + + | MCV | 85.1Comment: Testing | 80.0 - 100.0 fl | EXTERNAL | | | | performed at [facility], [address] | | LAB | | | | [address], | | | | | | [place] [address] | | | | + + + + + + | MCH | 27.3Comment: Testing | 27.0 - 34.0 pg | EXTERNAL | | | | performed at [facility], [address] | | LAB | | | | [address], | | | | | | [place] [address] | | | | + + + + + + | MCHC | 32.1Comment: Testing | 32.0 - 35.5 | EXTERNAL | | | | performed at [facility], [address] | g/dL | LAB | | | | [address], | | | | | | [place] [address] | | | | + + + + + + | RDW-CV | 47.3Comment: Testing | 37 - 53 fl | EXTERNAL | | | | performed at [facility], [address] | | LAB | | | | [address], | | | | | | [place] [address] | | | | + + + + + + | Platelet | 117 (L)Comment: Testing | 150 - 400 K/uL | EXTERNAL | | | Count | performed at [facility], [address] | | LAB | | | Plasma | [address], | | | | | | [place] [address] | | | | + + + + + + | MPV | 9.7Comment: Testing | fl | EXTERNAL | | | | performed at [facility], [address] | | LAB | | | | [address], | | | | | | [place] [address] | | | | + + + + + + | Differentia | AUTOMATEDComment: | | EXTERNAL | | | l Type | Testing performed at | | LAB | | | | [facility], [address] | | | | | | [place] | | | | | | [address] | | | | + + + + + + | % Segmented | 72.39Comment: Testing | % | EXTERNAL | | | | performed at [facility], [address] | | LAB | | | Neutrophils | [address], | | | | | | [place] [address] | | | | + + + + + + | % | 16.63Comment: Testing | % | EXTERNAL | | | Lymphocytes | performed at [facility], [address] | | LAB | | | | [address], | | | | | | [place] [address] | | | | + + + + + + | % Monocytes | 10.39Comment: Testing | % | EXTERNAL | | | | performed at [facility], [address] | | LAB | | | | [address], | | | | | | [place] [address] | | | | + + + + + + | % | 0.31Comment: Testing | % | EXTERNAL | | | Eosinophils | performed at [facility], [address] | | LAB | | | | [address], | | | | | | [place] [address] | | | | + + + + + + | % Basophils | 0.28Comment: Testing | % | EXTERNAL | | | | performed at [facility], [address] | | LAB | | | | [address], | | | | | | [place] [address] | | | | + + + + + + | Absolute | 5.32Comment: Testing | 1.90 - 7.40 | EXTERNAL | | | Segmented | performed at [facility], [address] | K/uL | LAB | | | Neutrophils | [address], | | | | | | [place] [address] | | | | + + + + + + | Absolute | 1.22Comment: Testing | 1.00 - 3.90 | EXTERNAL | | | Lymphocytes | performed at [facility], [address] | K/uL | LAB | | | | [address], | | | | | | [place] [address] | | | | + + + + + + | Absolute | 0.76Comment: Testing | 0.00 - 0.80 | EXTERNAL | | | Monocytes | performed at [facility], [address] | K/uL | LAB | | | | [address], | | | | | | [place] [address] | | | | + + + + + + | Absolute | 0.02Comment: Testing | 0.00 - 0.50 | EXTERNAL | | | Eosinophils | performed at [facility], [address] | K/uL | LAB | | | | [address], | | | | | | [place] [address] | | | | + + + + + + | Absolute | 0.02Comment: Testing | 0.00 - 0.10 | EXTERNAL | | | Basophils | performed at [facility], [address] | K/uL | LAB | | | | [address], | | | | | | [place] [address] | | | | + + + [...] EXTERNAL | | | | performed at [facility], [address] | | LAB | | | | [address], | | | | | | [place] [address] | | | | + + + [...] EXTERNAL | | | | performed at [facility], [address] | | LAB | | | | [address], | | | | | | [place] [address] | | | | + + + [...] | | | | | [place] [address] | | | | + + + + + + | K | 3.7Comment: Testing | 3.5 - 4.9 | EXTERNAL | | | | performed at [facility], [address] | mmol/L | LAB | | | | [address], | | | | | | [place] [address] | | | | + + + + + + | Cl | 106Comment: Testing | 99 - 109 mmol/L | EXTERNAL | | | | performed at [facility], [address] | | LAB | | | | [address], | | | | | | [place] [address] | | | | + + + + + + | CO2 | 27Comment: Testing | 23 - 32 mmol/L | EXTERNAL | | | | performed at [facility], [address] | | LAB | | | | [address], | | | | | | [place] [address] | | | | + + + + + + | Anion Gap | 6Comment: Testing | 5 - 20 mmol/L | EXTERNAL | | | | performed at [facility], [address] | | LAB | | | | [address], | | | | | | [place], [place] [address] | | | | + + + + + + | Glucose, | 106 (H)Comment: Testing | 65 - 99 mg/dL | EXTERNAL | | | Fasting | performed at [facility], [address] | | LAB | | | | [address], | | | | | | [place], [place] [address] | | | | + + + + + + | BUN | 5 (L)Comment: Testing | 8 - 25 mg/dL | EXTERNAL | | | | performed at [facility], [address] | | LAB | | | | [address], | | | | | | [place] [address] | | | | + + + + + + | Creatinine | 0.50 (L)Comment: Testing | 0.70 - 1.30 | EXTERNAL | | | | performed at [facility], [address] | mg/dL | LAB | | | | [address], | | | | | | [place] [address] | | | | + + + + + + | BUN/Creatin | 10Comment: Testing | | EXTERNAL | | | ine Ratio | performed at [facility], [address] | | LAB | | | | [facility], | | | | | | [place] [address] | | | | + + + + + + | Calcium | 8.1 (L)Comment: Testing | 8.5 - 10.5 | EXTERNAL | | | | performed at [facility], [address] | mg/dL | LAB | | | | [address], | | | | | | [place] [address] | | | | + + + [...] | | | | | [place] [address] | | | | + + + [...] | | | Count | performed at [facility];[address] | | LAB | | | Plasma | [address];[place] | | | | | | [address] | | | | + + + [...] | | | Patient | performed at [facility];[address] | | LAB | | | | [address];[place], [place] | | | | | | [address] | | | | + + + [...] | | | | | performed at [facility] | | | | | | [address];[place], [place] | | | | | | [address] | | | | + + + [...] EXTERNAL | | | | performed at [facility];[address] | | LAB | | | | [address];[place] | | | | | | [address] | | | | + + + [...] | | | | | performed at [facility];[address] | | | | | | [facility];[place], [place] | | | | | | [address] | | | | + + + [...] | | LAB | | | | [facility];[address];[place] [address] | | | | + + + + + + | PCO2 ART | 37Comment: Testing | 35 - 45 mmHg | EXTERNAL | | | | performed at [facility];[address] | | LAB | | | | [address];[place] | | | | | | [address] | | | | + + + + + + | PO2 ART | 208 (H)Comment: Testing | 80 - 105 mmHg | EXTERNAL | | | | performed at [facility];[address] | | LAB | | | | [address];[place] | | | | | | [address] | | | | + + + + + + | HCO3 ART | 26Comment: Testing | 22 - 26 mmol/L | EXTERNAL | | | | performed at [facility];[address] | | LAB | | | | [address];[place] | | | | | | [address] | | | | + + + + + + | POC | 27Comment: Testing | 23 - 27 mEq/L | EXTERNAL | | | APPEARANCE | performed at [facility];[address] | | LAB | | | UA | [address];[place] | | | | | | [address] | | | | + + + + + + | Base | 2Comment: Testing | 0 - 3 mEq/L | EXTERNAL | | | Excess, | performed at [facility];[address] | | LAB | | | Arterial | [address];[place] | | | | | | [address] | | | | + + + + + + | O2 SAT ART | 100 (H)Comment: Testing | 95 - 98 % | EXTERNAL | | | | performed at [facility];[address] | | LAB | | | | [address];[place] | | | | | | [address] | | | | + + + + + + | Sodium, POC | 134 (L)Comment: Testing | 135 - 145 mEq/L | EXTERNAL | | | | performed at [facility];[address] | | LAB | | | | [address];[place] | | | | | | [address] | | | | + + + + + + | Potassium, | 3.6Comment: Testing | 3.5 - 5.0 mEq/L | EXTERNAL | | | POC | performed at [facility];[address] | | LAB | | | | [address];[place] | | | | | | [address] | | | | + + + + + + | Ionized | 1.09 (L)Comment: Testing | 1.12 - 1.32 | EXTERNAL | | | Calcium, | performed at [facility];[address] | mmol/L | LAB | | | POC | [address];[place] | | | | | | [address] | | | | + + + + + + | Glucose, | 191 (H)Comment: Testing | 65 - 99 mg/dL | EXTERNAL | | | POC | performed at [facility];[address] | | LAB | | | | [address];[place] | | | | | | [address] | | | | + + + + + + | Hematocrit, | 35 (L)Comment: Testing | 40.0 - 50.0 % | EXTERNAL | | | POC | performed at [facility];[address] | | LAB | | | | [address];[place] | | | | | | [address] | | | | + + + + + + | Hemoglobin, | 11.9 (L)Comment: Testing | 13.7 - 16.7 | EXTERNAL | | | POC | performed at [facility];888 | g/dL | LAB | | | | [address];[place] | | | | | | [address] | | | | + + + [...] EXTERNAL | | | | performed at [facility], [address] | K/uL | LAB | | | | [address], | | | | | | [place] [address] | | | | + + + + + + | RED CELL | 4.00 (L)Comment: Testing | 4.20 - 5.70 | EXTERNAL | | | COUNT | performed at [facility], [address] | M/uL | LAB | | | | [address], | | | | | | [place] [address] | | | | + + + + + + | Hgb | 11.0 (L)Comment: Testing | 13.2 - 17.0 | EXTERNAL | | | | performed at [facility], [address] | g/dL | LAB | | | | [address], | | | | | | [place] [address] | | | | + + + + + + | Hematocrit, | 33.7 (L)Comment: Testing | 39.0 - 50.0 % | EXTERNAL | | | POC | performed at [facility], [address] | | LAB | | | | [address], | | | | | | [place] [address] | | | | + + + + + + | MCV | 84.3Comment: Testing | 80.0 - 100.0 fl | EXTERNAL | | | | performed at [facility], [address] | | LAB | | | | [address], | | | | | | [place] [address] | | | | + + + + + + | MCH | 27.6Comment: Testing | 27.0 - 34.0 pg | EXTERNAL | | | | performed at [facility], [address] | | LAB | | | | [address], | | | | | | [place] [address] | | | | + + + + + + | MCHC | 32.8Comment: Testing | 32.0 - 35.5 | EXTERNAL | | | | performed at [facility], [address] | g/dL | LAB | | | | [address], | | | | | | [place] [address] | | | | + + + + + + | RDW-CV | 45.1Comment: Testing | 37 - 53 fl | EXTERNAL | | | | performed at [facility], [address] | | LAB | | | | [address], | | | | | | [place] [address] | | | | + + + [...] | | | | | [place] [address] | | | | + + + + + + | Differentia | AUTOMATEDComment: | | EXTERNAL | | | l Type | Testing performed at | | LAB | | | | [facility], [address] | | | | | | [place] | | | | | | [address] | | | | + + + + + + | % Segmented | 75.95Comment: Testing | % | EXTERNAL | | | | performed at [facility], [address] | | LAB | | | Neutrophils | [address], | | | | | | [place] [address] | | | | + + + + + + | % | 14.93Comment: Testing | % | EXTERNAL | | | Lymphocytes | performed at [facility], [address] | | LAB | | | | [address], | | | | | | [place] [address] | | | | + + + + + + | % Monocytes | 8.68Comment: Testing | % | EXTERNAL | | | | performed at [facility], [address] | | LAB | | | | [address], | | | | | | [place] [address] | | | | + + + + + + | % | 0.25Comment: Testing | % | EXTERNAL | | | Eosinophils | performed at [facility], [address] | | LAB | | | | [address], | | | | | | [place] [address] | | | | + + + + + + | % Basophils | 0.19Comment: Testing | % | EXTERNAL | | | | performed at [facility], [address] | | LAB | | | | [address], | | | | | | [place] [address] | | | | + + + + + + | Absolute | 6.90Comment: Testing | 1.90 - 7.40 | EXTERNAL | | | Segmented | performed at [facility], [address] | K/uL | LAB | | | Neutrophils | [address], | | | | | | [place] [address] | | | | + + + + + + | Absolute | 1.36Comment: Testing | 1.00 - 3.90 | EXTERNAL | | | Lymphocytes | performed at [facility], [address] | K/uL | LAB | | | | [address], | | | | | | [place] [address] | | | | + + + + + + | Absolute | 0.79Comment: Testing | 0.00 - 0.80 | EXTERNAL | | | Monocytes | performed at [facility], [address] | K/uL | LAB | | | | [address], | | | | | | [place] [address] | | | | + + + + + + | Absolute | 0.02Comment: Testing | 0.00 - 0.50 | EXTERNAL | | | Eosinophils | performed at [facility], [address] | K/uL | LAB | | | | [address], | | | | | | [place] [address] | | | | + + + + + + | Absolute | 0.02Comment: Testing | 0.00 - 0.10 | EXTERNAL | | | Basophils | performed at [facility], [address] | K/uL | LAB | | | | [address], | | | | | | [place] [address] | | | | + + + [...] | | | | | [place] [address] | | | | + + + + + + | K | 4.1Comment: Testing | 3.5 - 4.9 | EXTERNAL | | | | performed at [facility], [address] | mmol/L | LAB | | | | [address], | | | | | | [place] [address] | | | | + + + + + + | Cl | 102Comment: Testing | 99 - 109 mmol/L | EXTERNAL | | | | performed at [facility], [address] | | LAB | | | | [address], | | | | | | [place] [address] | | | | + + + + + + | CO2 | 26Comment: Testing | 23 - 32 mmol/L | EXTERNAL | | | | performed at [facility], [address] | | LAB | | | | [address], | | | | | | [place] [address] | | | | + + + + + + | Anion Gap | 10Comment: Testing | 5 - 20 mmol/L | EXTERNAL | | | | performed at [facility], [address] | | LAB | | | | [address], | | | | | | [place] [address] | | | | + + + + + + | Glucose, | 109 (H)Comment: Testing | 65 - 99 mg/dL | EXTERNAL | | | Fasting | performed at [facility], [address] | | LAB | | | | [address], | | | | | | [place] [address] | | | | + + + + + + | BUN | 7 (L)Comment: Testing | 8 - 25 mg/dL | EXTERNAL | | | | performed at [facility], [address] | | LAB | | | | [address], | | | | | | [place] [address] | | | | + + + + + + | Creatinine | 0.62 (L)Comment: Testing | 0.70 - 1.30 | EXTERNAL | | | | performed at [facility], [address] | mg/dL | LAB | | | | [address], | | | | | | [place] [address] | | | | + + + + + + | BUN/Creatin | 11Comment: Testing | | EXTERNAL | | | ine Ratio | performed at [facility], [address] | | LAB | | | | [address], | | | | | | [place] [address] | | | | + + + + + + | Calcium | 8.8Comment: Testing | 8.5 - 10.5 | EXTERNAL | | | | performed at [facility], [address] | mg/dL | LAB | | | | [address], | | | | | | [place] [address] | | | | + + + [...] | | | | | | [place] [address] | | | | + + + [...] | | | | | [place] [address] | | | | + + + + + + | Clarity | CLEARComment: Testing | | EXTERNAL | | | | performed at [facility], [address] | | LAB | | | | [address], | | | | | | [place] [address] | | | | + + + + + + | Specific | 1.029Comment: Testing | 1.002 - 1.030 | EXTERNAL | | | May | performed at [facility], [address] | | LAB | | | | [address], | | | | | | [place] [address] | | | | + + + + + + | Leukocyte | NEGATIVEComment: Testing | | EXTERNAL | | | Esterase, | performed at [facility], [address] | | LAB | | | Urine | [address], | | | | | | [place] [address] | | | | + + + + + + | Nitrite, | NEGATIVEComment: Testing | | EXTERNAL | | | Urine | performed at [facility], [address] | | LAB | | | | [address], | | | | | | [place] [address] | | | | + + + + + + | Urobilinoge | 1.0Comment: Testing | mg/dL | EXTERNAL | | | n, Urine | performed at [facility], [address] | | LAB | | | | [address], | | | | | | [place] [address] | | | | + + + + + + | Protein, | NEGATIVEComment: Testing | mg/dL | EXTERNAL | | | Urine | performed at [facility], [address] | | LAB | | | | [address], | | | | | | [place] [address] | | | | + + + + + + | pH, Urine | 5.0Comment: Testing | 5.0 - 8.0 | EXTERNAL | | | | performed at [facility], [address] | | LAB | | | | [address], | | | | | | [place] [address] | | | | + + + + + + | Blood, | NEGATIVEComment: Testing | | EXTERNAL | | | Urine | performed at [facility], [address] | | LAB | | | | [address], | | | | | | [place] [address] | | | | + + + + + + | Ketones | 40 (A)Comment: Testing | mg/dL | EXTERNAL | | | | performed at [facility], [address] | | LAB | | | | [address], | | | | | | [place] [address] | | | | + + + + + + | Bilirubin, | NEGATIVEComment: Testing | | EXTERNAL | | | Urine | performed at [facility], [address] | | LAB | | | | [address], | | | | | | [place] [address] | | | | + + + + + + | Glucose, | NEGATIVEComment: Testing | mg/dL | EXTERNAL | | | Urine | performed at [facility], [address] | | LAB | | | | [address], | | | | | | [place] [address] | | | | + + + [...] EXTERNAL LAB | | Testing performed at [facility];[address] [place] [address];[place] [address] MRSA PCR | | | NEGATIVE Testing performed at | | | [address];[place] [address] | | + + + + +---------+ [...] ISOLATED | | | Testing performed at [facility], [address] | | | [place] [address] | | + + + + +---------+ [...] GROWTH | | | Testing performed at [facility], [address], | | | [place] [address] | | + + + + +---------+ [...] LAB | | | | Blvd;[place] [address] | | | | + + + + + + | Antibody | NEGATIVE | | EXTERNAL | | | Screen | | | LAB | | + + + + + + | Antibody | Testing performed at | | EXTERNAL | | | Screen | [facility];[address] | | LAB | | | | [address];[place] [address] | | | | + + + + + + | BB BAND | [id number] | | EXTERNAL | | | | | | LAB | | + + + + + + | BB BAND | Testing performed at | | EXTERNAL | | | | [facility];[address] | | LAB | | | | [address];[place] [address] | | | | + + + [...]
--- OUTSIDE RECORDS SUMMARY | ~2019-09-09 | XMS | Encounter Summary ---
Demographics + + + | Address | [address] | | | [place] [address] | + + + | Home Phone | | + + + | Preferred Language | Unknown | + + + | Marital Status | Single | + + + | Taoism Affiliation [...] Providers + +------+ + | Care Supervisor Metalizing Name | Role | Phone | + +------+ + PCP | Unavailable | + +------+ + Encounter Details +--------+ + + + + | Date | Type | Department | Care Team | Description | +--------+ + + + + | 12/27/ | Abstract | [facility] | Azeem Dietrich | | | 2011 | | [place] [address] | MD Travis [address] | | | | | [address] | [place], [place] | | | | | Mailcode: [id number] | [id number] | | | | | [facility] | [phone] | | | | | and [address], | | | | | | [address] | | | | | | [place], [place] | | | | | | [address] | | | | | | [phone] | | | +--------+ + + + [...]
--- OUTSIDE RECORDS SUMMARY | ~2019-09-09 | XMS | Encounter Summary ---
Demographics + + + | Address | [address] | | | [place] [address] | + + + | Home Phone [...] Providers + +------+ + | Care Senior It Security Analyst Name | Role | Phone | + +------+ + PCP | Unavailable | + +------+ + Encounter Details +--------+ + + + + | Date | Type | Department | Care Team | Description | +--------+ + + + + | 05/28/ | Hospital | [facility] | Livier Betancur, | Unspecified acquired | | 2015 - | Encounter | [facility]ENTER SUR[facility] [address] | deformity of head | | | | [address] | [place] [address] | | | 06/03/ | | [place], [place] | [phone] | | | 2014 | | [address] | | | | | | [phone] | | | +--------+ + + + [...] 1128 Date of Service: 06/21/151118 Status: Signed Crown Buffer: Livier Betancur MD (Physician) [facility] Service: Neurosurgery Discharge Summary Date of [...] recovery, although continued to reside at the [facility] in [place], [place]. 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 Dr. Chong was not available for the surgery, secondary to a ar litary commitment, and I did see the [...] the patient was transferred back to his prison, [facility] in [facility] on 06/03/2015 Past Medical History Diagnosis Date Alcohol abuse Frequent falls Drug abuse Seizures (HCC) Other chronic pain Depression Skin abscess Anemia Hemiparesis (HCC) Past Surgical History Procedure Laterality Date Craniotomy Right 10/11/2014 Procedure: CRANIOTOMY - FOR BLEED; Surgeon: Anthony Chong MD; Location: [facility] OR; Service: Neurosurgery; Laterality: Right; Craniectomy Right 10/11/2014 Procedure: CRANIECTOMY; Surgeon: Anthony Chong MD; Location: [facility]; Ser vice: Neurosurgery; Laterality: Right; Cranial flap replacement Right 05/28/2015 Procedure: CRANIAL - FLAP REPLACEMENT; Surgeon: Livier Betancur MD; Location: [facility] OR; Service: Neurosurgery; Laterality: Right; Cranioplasty for cranial defect Right 05/29/2015 Procedure: CRANIOPLASTY; Surgeon: Livier Betancur MD; Location: [facility]; Service: Neurosurgery; Laterality: Right; Allergies Allergen [...] PLAN The patient was discharged to his prison, the [facility] in [facility]. The patient was asked to return to the clinic in 2 weeks for removal of the right-sided sca lp diamond. 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 Follow up: Livier Betancur MD [address] [place] [address] [phone] In 2 weeks Staple removal [facility] [address] [place] [id number] Medication List CHANGE how you take these [...] are the prescriptions that you need to pecan picker. You may get the following medications [...] Josseline Mera RN Service: (none) Author Type: Fellmongering Machine Operator Filed: 06/03/15 2407 Date of Service: 06/03/151406 Status: Signed Crown Buffer: Josseline Mera RN (Fellmongering Machine Operator) Disposition: [facility] Transportation: D Map through [employer]. All orders, signed AVS, and prescriptions have been faxed All DC paperwork completed Patient and family in agreement with discharge plan Josseline Mera onver alem Transaction, Provider Unknown - 06/03/2015 12:21 PM PDT Nurse Progress Note by Shannon Nguyen RN at 06/03/15 1221 Author: Shannon Nguyen RN Service: (none) Author Type: Registered Nurse Filed: 06/03/15 1224 Date of Service: 06/03/15 1221 Status: Signed Crown Buffer: Shannon Nguyen RN (Registered Nurse) Pt discharged back to [facility] in [place]. Paperwork previously faxed. IV removed, belon gings with transport, talha in place. Left message for mother, notifying her of D/C. No c oncerns. 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 Juhi Abel MA, CCC-LANGUAGE TUTOR - 06/03/2015 9:07 AM PDTFormatting of this note might be different fr om the original. Therapy Progress Note by Juhi Gregory MA CCC-LANGUAGE TUTOR at 06/03/15 09 Author: Juhi rGegory MA CCC-LANGUAGE TUTOR Service: (none) Author Type: Speech and Automatic Engraver ologist Filed: 06/03/15906 Date of Service: 06/03/15906 Status: Signed Crown Buffer: Juhi rGegory MA CCC-LANGUAGE TUTOR (Speech and Language Pathologist) 06/03/15 0850 Swallowing Assessment Eval Swallowing Treatment Yes Thin Presentation Cup Oral Phase Thin WFL Pharyngeal Phase Cough - delayed [place] Presentation Cup Oral WFL Pharyngeal Phase Delayed swallow initiated Puree Presentation Spoon Oral Phase WFL Pharyngeal Delayed Swallow Recommendations Liquids Consistency Recommendations [place] thick Diet Consistency Recommendation Pureed Recommendations Dysphagia treatment;Feeding assist;Set up with meals;Check on patients freq uently throught out meals Risk for Aspiration Moderate Compensatory Swallowing Strategies Upright as possible for all oral intake;Remain upright f or 30 minutes after meals;Slow rate presentation;Small bites/sips;Eat/feed slowly Recommended Form of Meds Meds floated in puree Summary pt eating breakfast with RN in room when LANGUAGE TUTOR entered. pt with delayed swallow but no [...] Josseline Mera RN Service: (none) Author Type: Fellmongering Machine Operator Filed: 06/03/15907 Date of Service: 06/03/15906 Status: Signed Crown Buffer: Josseline Mera RN (Fellmongering Machine Operator) Gladis Regan will accept Krueger back when appropriate. Paperwork on front of chart f or MD signature. Ken Rivera MD - 06/02/2015 10:55 AM PDT Progress Notes by Ken Foster MD at 06/02/15 105 Author: Ken Foster MD Service: Neurosurgery Author Type: Physician Filed: 06/02/15 1057 Date of Service: 06/02/151054 Status: Signed Crown Buffer: Ken Foster MD (Physician) Subjective: POD#4 No [...] Therapy Progress Note by Mere Hardy MA CCC-LANGUAGE TUTOR at 06/01/151625 Author: Mere Hardy MA CCC-LANGUAGE TUTOR Service: (none) Author Type: Speech and Language Patholo gist Filed: 06/01/151625 Date of Service: 06/01/151625 Status: Signed Crown Buffer: Mere Hardy MA CCC-LANGUAGE TUTOR (Speech and Language Pathologist) 06/01/15 160 Swallowing [...] upon palpation;Cou gh - delayed;Spontaneous multiple swallow [place] Presentation Cup;Self Fed Oral WFL Pharyngeal Phase No overt signs or symptoms of aspiration;Delayed swallow initiated;Decreas ed laryngeal elevation upon palpation Puree Presentation Self Fed;Spoon Oral Phase WFL Pharyngeal No overt signs or symptoms of aspiration;Delayed Swallow Dysphagia Mechanically Altered Presentation Spoon;Self Fed Oral Phase Prolonged mastication Pharyngeal Phase Cough - Immediate;Delayed Swallow;Decreased Laryngeal Elevation Recommendations Liquids Consistency Recommendations [place] thick Diet Consistency Recommendation Pureed Recommendations Dysphagia [...] monitoring;Patient/Family education; Assessment for upgrade Dysphagia Goals Multimedia Journalist Goals Safe/efficient oral intake Pt will have safe/efficient oral intake [place] thick liquids;Dysphagia advanced diet;With max cues Short Term Goals Tolerate liquid consistency;Follow swallow precautions Pt will tolerate tolerate liquid consistency [place] thick liquids;With max supervision;Goa l progressing Pt will follow swallow precautions With mod supervision;Goal progressing onver alem Transaction, Provider Unknown - 06/01/2015 12:40 PM PDT Progress Notes by Fede Bonner at 06/01/15 1240 Author: Fede Bonner Service: (none) Author Type: Filed: 06/01/15 1242 Date of Service: 06/01/151239 Status: Signed Crown Buffer: Fede Bonner () Tony is from [place], but says he lives on the [facility]. Stated he has bee n in [...] 06/01/15909 Date of Service: 06/01/15907 Status: Signed Crown Buffer: Ken Foster MD (Physician) Subjective: POD#3 Transferred [...] could be returned to his care fac [facility] Wednesday or Wednesday. onversion Transact ion, Provider Unknown - 05/31/2015 12:04 PM PDTFormatting of this note might be different fr om the original. Progress Notes by Hany Templeton RD at 05/31/15 1204 Author: Hany Templeton RD Service: (none) Author Type: Registered Dietitian Filed: 05/31/15 120 Date of Service: 05/31/151203 Status: Signed Crown Buffer: Hany Templeton RD (Registered Dietitian) 05/31/15 4063 Subjective Timepoint Admit (Triggers for dysphagia. ) Pt c/o Pt admitted for seizures, has hx of craniectiomy, is POD # 2R [id number] cranioplasty, POD # 1 R bone flap [...] dysphagia pureed, NT liquid, house diet per LANGUAGE TUTOR recommend ations. Add magic cups to meal [...] 1929 Date of Service: 05/31/151115 Status: Signed Crown Buffer: Ki Martinez PT (Physical Therapist) 05/31/15 1116 [...] 1306 Date of Service: 05/31/15917 Status: Signed Crown Buffer: Livier Betancur MD (Physician) POD#2 The patient [...] could be returned to his care fac [facility]. onnarcisa Transactio n, Provider Unknown - 05/31/2015 8:55 AM PDT Case Management by TABITHA Sidhu at 05/31/15 0855 Author: TABITHA Sidhu Service: (none) Author Type: Project Hire Filed: 05/31/15 1438 Date of Service: 05/31/1555 Status: Addendum Crown Buffer: TABITHA Sidhu (Project Hire) Related Notes: Original Note by TABITHA Sidhu (Project Hire) filed at 05/31/15 0856 Placed t/c to Dianna at [facility]. Left message requesting a return call as i have no t heard from her since I faxed the referral. Await her return call. Addendum: 1400: Received return call from Debora at [facility]. Pt is accepted for a dmit when he is medically stable. Tabitha Cooley PT - 05/30/2015 3:49 PM PDTFormatting of this note might be different from th e original. Therapy Progress Note by Keiry Weiss PT at 05/30/15 5569 Author: Keiry Weiss PT Service: (none) Author Type: Physical Therapist Filed: 05/30/15 180 Date of Service: 05/30/151548 Status: Signed Crown Buffer: Keiry Weiss, PT (Physical Therapist) 05/30/15 1549 [...] Pt had been most recently staying at [facility] in [place]. Pt was getti ng agitated with questions and not wanting to respond. Prior Function Level of Brooks Assist with functional mobility;Assist with ADLs;Assist with IADLs (while at [facility], unclear functional mobility prior) Lives With Alone Receives Help From Family (silblings) Comments difficult to ascertain- pt reported spending most of his time in w/c at [facility] an d needing help with all [...] Barriers to Discharge Physical Deficits Impacting Functional Brooks;Self-care Deficit s Impacting Functional Brooks 05/30/15 1549 PT Last Visit PT Received [...] Barriers to Discharge Physical Deficits Impacting Functional Brooks;Self-care Deficit s Impacting Functional Brooks onversion Transa ction, Provider Unknown - 05/30/2015 3:10 PM PDT Therapy Progress Note by Carmela Wilcox MS CCC-LANGUAGE TUTOR at 05/30/15 6224 Author: Carmela Wilcox MS CCC-LANGUAGE TUTOR Service: (none) Author Type: Speech and Automatic Engraver ologist Filed: 05/30/15 2277 Date of Service: 09/10/15 1510 Status: Signed Crown Buffer: Carmela Wilcox MS CCC-LANGUAGE TUTOR (Speech and Language Pathologist) 05/30/15 1500 Swallowing [...] Pharyngeal Phase Delayed swallow initiated;Cough - delayed [place] Presentation Cup;Self Fed Oral Increased Anterior to [...] Cough - Delayed Recommendations Liquids Consistency Recommendations [place] thick;Ice chips for oral comfort Diet Consistency [...] education;Assessment for upgr khadijah;Swallow strategies Dysphagia Goals Intermediate Goals Safe/efficient oral intake Pt will have safe/efficient oral intake [place] thick liquids;Dysphagia advanced diet;With max cues Short Term Goals Tolerate liquid consistency;Follow swallow precautions Pt will tolerate tolerate liquid consistency [place] thick liquids;With max supervision Pt will follow swallow precautions With mod supervision;New/revised goal RDStLivier bustamante - 05/30/2015 8:48 AM PDTFormatting of this note might be different from the or iginal. Progress Notes by Livier Betancur MD at 05/30/15847 Author: Livier Betancur MD Service: Neurosurgery Author Type: Physician Filed: 05/30/15 1230 Date of Service: 05/30/15847 Status: Signed Crown Buffer: Livier Betancur MD (Physician) POD#1 The patient [...] Mendoza at 05/30/15639 Author: JENNIFER Mendoza Service: Flight Steward Author Type: Nurse Practitioner Filed: 05/30/15 1123 Date of Service: 05/30/15639 Status: Signed Crown Buffer: JENNIFER Mendoza (Nurse Practitioner) [facility] Service: Flight Steward Progress Note [facility] 54 [facility] [...] 142 Date of Service: 05/29/151420 Status: Signed Crown Buffer: Livier Betancur MD (Physician) ICU nurse states the patient seems more lethargic. I will plan a return to the OR now to e valuate the pressure present beneath the right-sided cranial flap. onversion Transactio n, Provider Unknown - 05/29/2015 1:24 PM PDT Case Management by TABITHA Sidhu at 05/29/15 1321 Author: TABITHA Sidhu Service: (none) Author Type: Project Hire Filed: 05/29/15 1320 Date of Service: 05/29/151323 Status: Signed Crown Buffer: TABITHA Sidhu (Project Hire) 05/29/15 1329 Discharge Planning Evaluation Admitting Diagnosis Right zjivza-ixirmtc-narkvnvk cranioplasty Readmission Other (comment) Living Arrangements Other (Comment) (group home) Support Systems Parent Type of Residence jail facility ([facility]) Independent with ADL's No-comment Independent with Mobility No-comment (require w/c) Home Care Services No Mental Status Other (comment) (just starting to follow commands after surgery) Prior functional status Previously at [facility] and [facility]. Richelle is at [facility] and mother states that plan is to retun there. Anticipated Discharge Plan Plan communicated to patient/family Yes Resources Financial concerns No Transportation issues No Patient/Family concerns No Prescription Plan Yes Anticipated Disposition Facility Type jail facility Shelter Facility Other (comment) ([facility]) Met with: pt's mother Teressa who tells [...] this time. E-faxed referral to Dianna at [facility]. Patient's PCP is: [facility] Patient's insurance:[place] Medicaid - OMAP Coverage concerns: Medication coverage/concerns: Nahun'eliseo Bedside Delivery: Community resources utilized / needed: Assistance in transportation: may need ambulance transfer back to [place] Identification of any specific education / training: Barriers to Discharge / Alternative housing needed: Anticipated DCP: Back to [facility]. Referral faxed to [facility]. HAYES STEEN Livier Briseno - 05/29/2015 12:37 PM PDTFormatting of this note might be different from the or iginal. Progress Notes by Livier Betancur MD at 05/29/15 3183 Author: Livier Betancur MD Service: Neurosurgery Author Type: Physician Filed: 05/31/15 5209 Date of Service: 05/29/15 7580 Status: Addendum Crown Buffer: Livier Betancur MD (Physician) Related Notes: Original Note by Livier Betancur MD (Physician) filed at 05/29/15 9266 EXAM: Patient does nod his head yes [...] Galan Service: Wound/Ostomy Care Author Type: Nurse Advertising Strategist Filed: 05/29/15 1220 Date of Service: 05/29/151218 Status: Signed Crown Buffer: Pelon Galan (Nurse Advertising Strategist) Patient seen today for low Bon score. [...] 05/29/151209 Date of Service: 05/29/151209 Status: Signed Crown Buffer: Debra Fitzpatrick RPH (Pharmacist) Renal Dosing Monitoring: [...] 1.30 mg/dL Final Comment: Testing performed at [facility], [address] [place] [address] Creatinine clearance cannot be calculated (Patient's most [...] 1003 Date of Service: 05/29/1554 Status: Signed Crown Buffer: Livier Betancur MD (Physician) POD#1 The patient [...] 05/28/151119 Date of Service: 05/28/151119 Status: Signed Crown Buffer: Joyce Hernandez RPH (Pharmacist) Clinical Pharmacy Note: Renal Monitoring Tony Mcguire 54 y.o. male Ht Readings from Last 1 Encounters: 05/28/15 1.778 m (5' 10") Wt Readings from Last 1 Encounters: 05/28/15 78.9 kg (173 lb 15.1 oz) CREATININE Date Value Ref Range Status 11/26/2014 0.62* 0.70 - 1.30 mg/dL Final Comment: Testing performed at [facility], [address] [place] [address] Creatinine clearance cannot be calculated (Patient's most recent sCr result is older than t he maximum 3 days allowed.) Pharmacy dosing for renal function per Dr. Rios. Currently, there are no medications needing to be adjusted. Pharmacy will continue to monit or for changes in medication orders and in renal function and adjust accordingly. Joyce Hernandez [facility] 05/28/2015 11:20 AM onver alem Transaction, Provider Unknown - 05/28/2015 11:17 AM PDT Nurse Progress Note by Anna Gates RN at 05/28/15 1117 Author: Anna Gates RN Service: (none) Author Type: Registered Nurse Filed: 05/28/15 1118 Date of Service: 05/28/15 1117 Status: Signed Crown Buffer: Anna Gates RN (Registered Nurse) Report from Shayna at [facility] states that patient has been NPO since [...] Date of Service: 05/28/15 1041 Status: Signed Crown Buffer: Anna Gates RN (Registered Nurse) Lamine from the lab at [facility] to fax MRSA PCR results [...] EXTERNAL | | | | performed at [facility];888 | mmol/L | LAB | | | | [facility];[place], [place] | | | | | | [address] | | | | + + + [...] EXTERNAL | | | | performed at [facility] | | LAB | | | | [address];[place], [place] | | | | | | [address] | | | | + + + [...] EXTERNAL | | | | performed at [facility], [address] | K/uL | LAB | | | | [address], | | | | | | [place] [address] | | | | + + + + + + | RED CELL | 3.20 (L)Comment: Testing | 4.20 - 5.70 | EXTERNAL | | | COUNT | performed at [facility], [address] | M/uL | LAB | | | | [address], | | | | | | [place] [address] | | | | + + + + + + | Hgb | 8.9 (L)Comment: Testing | 13.2 - 17.0 | EXTERNAL | | | | performed at [facility], [address] | g/dL | LAB | | | | [address], | | | | | | [place] [address] | | | | + + + + + + | Hematocrit, | 27.2 (L)Comment: Testing | 39.0 - 50.0 % | EXTERNAL | | | POC | performed at [facility], [address] | | LAB | | | | [address], | | | | | | [place] [address] | | | | + + + + + + | MCV | 85.1Comment: Testing | 80.0 - 100.0 fl | EXTERNAL | | | | performed at [facility], [address] | | LAB | | | | [address], | | | | | | [place] [address] | | | | + + + + + + | MCH | 27.7Comment: Testing | 27.0 - 34.0 pg | EXTERNAL | | | | performed at [facility], [address] | | LAB | | | [address], | | | | | | [place] [address] | | | | + + + + + + | MCHC | 32.6Comment: Testing | 32.0 - 35.5 | EXTERNAL | | | | performed at [facility], [address] | g/dL | LAB | | | | [address], | | | | | | [place] [address] | | | | + + + + + + | RDW-CV | 49.0Comment: Testing | 37 - 53 fl | EXTERNAL | | | | performed at [facility], [address] | | LAB | | | | [address], | | | | | | [place] [address] | | | | + + + + + + | Platelet | 103 (L)Comment: Testing | 150 - 400 K/uL | EXTERNAL | | | Count | performed at [facility], [address] | | LAB | | | Plasma | [address], | | | | | | [place] [address] | | | | + + + + + + | MPV | 9.1Comment: Testing | fl | EXTERNAL | | | | performed at [facility], [address] | | LAB | | | | [address], | | | | | | [place] [address] | | | | + + + + + + | Differentia | AUTOMATEDComment: | | EXTERNAL | | | l Type | Testing performed at | | LAB | | | | [facility], [address] | | | | | | [place] | | | | | | [address] | | | | + + + + + + | % Segmented | 70.80Comment: Testing | % | EXTERNAL | | | | performed at [facility], [address] | | LAB | | | Neutrophils | [address], | | | | | | [place] [address] | | | | + + + + + + | % | 19.56Comment: Testing | % | EXTERNAL | | | Lymphocytes | performed at [facility], [address] | | LAB | | | | [address], | | | | | | [place] [address] | | | | + + + + + + | % Monocytes | 8.15Comment: Testing | % | EXTERNAL | | | | performed at [facility], [address] | | LAB | | | | [address], | | | | | | [place] [address] | | | | + + + + + + | % | 1.12Comment: Testing | % | EXTERNAL | | | Eosinophils | performed at [facility], [address] | | LAB | | | | [address], | | | | | | [place] [address] | | | | + + + + + + | % Basophils | 0.37Comment: Testing | % | EXTERNAL | | | | performed at [facility], [address] | | LAB | | | | [address], | | | | | | [place] [address] | | | | + + + + + + | Absolute | 4.40Comment: Testing | 1.90 - 7.40 | EXTERNAL | | | Segmented | performed at [facility], [address] | K/uL | LAB | | | Neutrophils | [address], | | | | | | [place] [address] | | | | + + + + + + | Absolute | 1.22Comment: Testing | 1.00 - 3.90 | EXTERNAL | | | Lymphocytes | performed at [facility], [address] | K/uL | LAB | | | | [address], | | | | | | [place] [address] | | | | + + + + + + | Absolute | 0.51Comment: Testing | 0.00 - 0.80 | EXTERNAL | | | Monocytes | performed at [facility], [address] | K/uL | LAB | | | | [address], | | | | | | [place] [address] | | | | + + + + + + | Absolute | 0.07Comment: Testing | 0.00 - 0.50 | EXTERNAL | | | Eosinophils | performed at [facility], [address] | K/uL | LAB | | | | [address], | | | | | | [place] [address] | | | | + + + + + + | Absolute | 0.02Comment: Testing | 0.00 - 0.10 | EXTERNAL | | | Basophils | performed at [facility], [address] | K/uL | LAB | | | | [address], | | | | | | [place] [address] | | | | + + + [...] EXTERNAL | | | | performed at [facility], [address] | | LAB | | | | [address], | | | | | | [place] [address] | | | | + + + [...] EXTERNAL | | | | performed at [facility], [address] | | LAB | | | | [address], | | | | | | [place] [address] | | | | + + + [...] | | | | | [place] [address] | | | | + + + + + + | K | 3.8Comment: Testing | 3.5 - 4.9 | EXTERNAL | | | | performed at [facility], [address] | mmol/L | LAB | | | | [address], | | | | | | [place] [address] | | | | + + + + + + | Cl | 106Comment: Testing | 99 - 109 mmol/L | EXTERNAL | | | | performed at [facility], [address] | | LAB | | | | [address], | | | | | | [place] [address] | | | | + + + + + + | CO2 | 27Comment: Testing | 23 - 32 mmol/L | EXTERNAL | | | | performed at [facility], [address] | | LAB | | | | [address], | | | | | | [place] [address] | | | | + + + + + + | Anion Gap | 7Comment: Testing | 5 - 20 mmol/L | EXTERNAL | | | | performed at [facility], [address] | | LAB | | | | [address], | | | | | | [place] [address] | | | | + + + + + + | Glucose, | 99Comment: Testing | 65 - 99 mg/dL | EXTERNAL | | | Fasting | performed at [facility], [address] | | LAB | | | | [address], | | | | | | [place] [address] | | | | + + + + + + | BUN | 4 (L)Comment: Testing | 8 - 25 mg/dL | EXTERNAL | | | | performed at [facility], [address] | | LAB | | | | [address], | | | | | | [place] [address] | | | | + + + + + + | Creatinine | 0.48 (L)Comment: Testing | 0.70 - 1.30 | EXTERNAL | | | | performed at [facility], [address] | mg/dL | LAB | | | | [address], | | | | | | [place] [address] | | | | + + + + + + | BUN/Creatin | 8Comment: Testing | | EXTERNAL | | | ine Ratio | performed at [facility], [address] | | LAB | | | | [address], | | | | | | [place] [address] | | | | + + + + + + | Calcium | 8.3 (L)Comment: Testing | 8.5 - 10.5 | EXTERNAL | | | | performed at [facility], [address] | mg/dL | LAB | | | | [facility], | | | | | | [place] [address] | | | | + + + [...] | | | | | | at [facility], [address] | | | | | | [facility], | | | | | | [place] [address] | | | | + + + + + + + + | Specimen | + + | Blood specimen | | (specimen) | + + + +---------+ + + | Performing | Address | City/State[facility] | Phone Number | | Organization [...] EXTERNAL | | | | performed at [facility];[address] | mmol/L | LAB | | | | [address];[place] | | | | | | [address] | | | | + + + [...] EXTERNAL | | | | performed at [facility];[address] | | LAB | | | | [address];[place] | | | | | | [address] | | | | + + + [...] EXTERNAL | | | | performed at [facility] | | LAB | | | | [address];[place] | | | | | | [address] | | | | + + + [...] drain | | | placement. 2. Improved rkywh-ei-zhvc midline shift. [facility] | | | Electronically signed by Joshua Rivera MD on May 30 2015 10:35AM | | | Referring Provider Line: [phone] ID: [id number] | | + + + [...] has improved. There is | | | fzlps-gg-afie midline shift measuring at least 5 mm [...] seen. Intracranial pneumocephalus has improved. There is diztd-za-rtgz midline shift | | measuring at least [...] interval subdural drain placement.2. | | Improved bgguy-yw-tcan midline shift. RADIA Electronically signed by Joshua Rivera MD | | on May 30 2015 10:35AM Referring Provider Line: [phone] ID: [id number] | | | |Sinuses: Paranasal [...] molina bdural drain placement. | |2. Improved powfp-gf-yzon midline shift. | | | |RADIA | | | | Electronically signed by Joshua Rivera MD on May 30 2015 10:35AM Referring Provider Line: [phone] ID: [id number] | + + PTT (05/30/2015 2:59 AM PDT) + + + + + + | Component | Value | Ref Range | Performed | Pathologist | | | | | At | Signature | + + + + + + | aPTT, | 33 (H)Comment: Testing | 23 - 32 seconds | EXTERNAL | | | Patient | performed at [facility];[address] | | LAB | | | | [address];[place], [place] | | | | | | [address] | | | | + + + [...] | | | | | performed at [facility];[address] | | | | | | [address] [facility];[place], [place] | | | | | | [address] | | | | + + + [...] EXTERNAL | | | | performed at [facility], [address] | K/uL | LAB | | | | [address], | | | | | | [place] [address] | | | | + + + + + + | RED CELL | 3.24 (L)Comment: Testing | 4.20 - 5.70 | EXTERNAL | | | COUNT | performed at [facility], [address] | M/uL | LAB | | | | [address] [employer], | | | | | | [place] [address] | | | | + + + + + + | Hgb | 8.8 (L)Comment: Testing | 13.2 - 17.0 | EXTERNAL | | | | performed at [facility], [address] | g/dL | LAB | | | | [address], | | | | | | [place] [address] | | | | + + + + + + | Hematocrit, | 27.5 (L)Comment: Testing | 39.0 - 50.0 % | EXTERNAL | | | POC | performed at [facility], [address] | | LAB | | | | [address], | | | | | | [place] [address] | | | | + + + + + + | MCV | 85.1Comment: Testing | 80.0 - 100.0 fl | EXTERNAL | | | | performed at [facility], [address] | | LAB | | | | [address], | | | | | | [place] [address] | | | | + + + + + + | MCH | 27.3Comment: Testing | 27.0 - 34.0 pg | EXTERNAL | | | | performed at [facility], [address] | | LAB | | | | [address], | | | | | | [place] [address] | | | | + + + + + + | MCHC | 32.1Comment: Testing | 32.0 - 35.5 | EXTERNAL | | | | performed at [facility], [address] | g/dL | LAB | | | | [address], | | | | | | [place] [address] | | | | + + + + + + | RDW-CV | 47.3Comment: Testing | 37 - 53 fl | EXTERNAL | | | | performed at [facility], [address] | | LAB | | | | [address], | | | | | | [place] [address] | | | | + + + + + + | Platelet | 117 (L)Comment: Testing | 150 - 400 K/uL | EXTERNAL | | | Count | performed at [facility], [address] | | LAB | | | Plasma | [address], | | | | | | [place] [address] | | | | + + + + + + | MPV | 9.7Comment: Testing | fl | EXTERNAL | | | | performed at [facility], [address] | | LAB | | | | [address], | | | | | | [place] [address] | | | | + + + + + + | Differentia | AUTOMATEDComment: | | EXTERNAL | | | l Type | Testing performed at | | LAB | | | | [facility], [address] | | | | | | [place] | | | | | | [address] | | | | + + + + + + | % Segmented | 72.39Comment: Testing | % | EXTERNAL | | | | performed at [facility], [address] | | LAB | | | Neutrophils | [address], | | | | | | [place] [address] | | | | + + + + + + | % | 16.63Comment: Testing | % | EXTERNAL | | | Lymphocytes | performed at [facility], [address] | | LAB | | | | [address], | | | | | | [place] [address] | | | | + + + + + + | % Monocytes | 10.39Comment: Testing | % | EXTERNAL | | | | performed at [facility], [address] | | LAB | | | | [address], | | | | | | [place] [address] | | | | + + + + + + | % | 0.31Comment: Testing | % | EXTERNAL | | | Eosinophils | performed at [facility], [address] | | LAB | | | | [address], | | | | | | [place] [address] | | | | + + + + + + | % Basophils | 0.28Comment: Testing | % | EXTERNAL | | | | performed at [facility], [address] | | LAB | | | | [address], | | | | | | [place] [address] | | | | + + + + + + | Absolute | 5.32Comment: Testing | 1.90 - 7.40 | EXTERNAL | | | Segmented | performed at [facility], [address] | K/uL | LAB | | | Neutrophils | [address], | | | | | | [place] [address] | | | | + + + + + + | Absolute | 1.22Comment: Testing | 1.00 - 3.90 | EXTERNAL | | | Lymphocytes | performed at [facility], [address] | K/uL | LAB | | | | [address], | | | | | | [place] [address] | | | | + + + + + + | Absolute | 0.76Comment: Testing | 0.00 - 0.80 | EXTERNAL | | | Monocytes | performed at [facility], [address] | K/uL | LAB | | | | [address], | | | | | | [place] [address] | | | | + + + [...] | | | | | [place] [address] | | | | + + + [...] EXTERNAL | | | | performed at [facility], [address] | | LAB | | | | [address], | | | | | | [place] [address] | | | | + + + [...] EXTERNAL | | | | performed at [facility], [address] | | LAB | | | | [address], | | | | | | [place] [address] | | | | + + [...] | | | | | [place] [address] | | | | + + + + + + | K | 3.7Comment: Testing | 3.5 - 4.9 | EXTERNAL | | | | performed at [facility], [address] | mmol/L | LAB | | | | [address], | | | | | | [place] [address] | | | | + + + + + + | Cl | 106Comment: Testing | 99 - 109 mmol/L | EXTERNAL | | | | performed at [facility], [address] | | LAB | | | | [address], | | | | | | [place] [address] | | | | + + + + + + | CO2 | 27Comment: Testing | 23 - 32 mmol/L | EXTERNAL | | | | performed at [facility], [address] | | LAB | | | | [address], | | | | | | [place] [address] | | | | + + + + + + | Anion Gap | 6Comment: Testing | 5 - 20 mmol/L | EXTERNAL | | | | performed at [facility], [address] | | LAB | | | | [address], | | | | | | [place], [place] [address] | | | | + + + + + + | Glucose, | 106 (H)Comment: Testing | 65 - 99 mg/dL | EXTERNAL | | | Fasting | performed at [facility], [address] | | LAB | | | | [address], | | | | | | [place], [place] [address] | | | | + + + + + + | BUN | 5 (L)Comment: Testing | 8 - 25 mg/dL | EXTERNAL | | | | performed at [facility], [address] | | LAB | | | | [address], | | | | | | [place] [address] | | | | + + + + + + | Creatinine | 0.50 (L)Comment: Testing | 0.70 - 1.30 | EXTERNAL | | | | performed at [facility], [address] | mg/dL | LAB | | | | [address], | | | | | | [place] [address] | | | | + + + + + + | BUN/Creatin | 10Comment: Testing | | EXTERNAL | | | ine Ratio | performed at [facility], [address] | | LAB | | | | [facility], | | | | | | [place] [address] | | | | + + + + + + | Calcium | 8.1 (L)Comment: Testing | 8.5 - 10.5 | EXTERNAL | | | | performed at [facility], [address] | mg/dL | LAB | | | | [address], | | | | | | [place] [address] | | | | + + + [...] | | | | | [place] [address] | | | | + + + [...] | | | Count | performed at [facility];[address] | | LAB | | | Plasma | [address];[place] | | | | | | [address] | | | | + + + [...] | | | Patient | performed at [facility];[address] | | LAB | | | | [address];[place], [place] | | | | | | [address] | | | | + + + [...] | | | | | performed at [facility] | | | | | | [address];[place], [place] | | | | | | [address] | | | | + + + [...] EXTERNAL | | | | performed at [facility];[address] | | LAB | | | | [address];[place] | | | | | | [address] | | | | + + + [...] | | | | | performed at [facility];[address] | | | | | | [facility];[place], [place] | | | | | | [address] | | | | + + + [...] | | LAB | | | | [facility];[address];[place] [address] | | | | + + + + + + | PCO2 ART | 37Comment: Testing | 35 - 45 mmHg | EXTERNAL | | | | performed at [facility];[address] | | LAB | | | | [address];[place] | | | | | | [address] | | | | + + + + + + | PO2 ART | 208 (H)Comment: Testing | 80 - 105 mmHg | EXTERNAL | | | | performed at [facility];[address] | | LAB | | | | [address];[place] | | | | | | [address] | | | | + + + + + + | HCO3 ART | 26Comment: Testing | 22 - 26 mmol/L | EXTERNAL | | | | performed at [facility];[address] | | LAB | | | | [address];[place] | | | | | | [address] | | | | + + + + + + | POC | 27Comment: Testing | 23 - 27 mEq/L | EXTERNAL | | | APPEARANCE | performed at [facility];[address] | | LAB | | | [address] | [address];[place] | | | | | | [address] | | | | + + + + + + | Base | 2Comment: Testing | 0 - 3 mEq/L | EXTERNAL | | | Excess, | performed at [facility];[address] | | LAB | | | Arterial | [address];[place] | | | | | | [address] | | | | + + + + + + | O2 SAT ART | 100 (H)Comment: Testing | 95 - 98 % | EXTERNAL | | | | performed at [facility];[address] | | LAB | | | | [address];[place] | | | | | | [address] | | | | + + + + + + | Sodium, POC | 134 (L)Comment: Testing | 135 - 145 mEq/L | EXTERNAL | | | | performed at [facility];[address] | | LAB | | | | [address];[place] | | | | | | [address] | | | | + + + + + + | Potassium, | 3.6Comment: Testing | 3.5 - 5.0 mEq/L | EXTERNAL | | | POC | performed at [facility];[address] | | LAB | | | | [address];[place] | | | | | | [address] | | | | + + + + + + | Ionized | 1.09 (L)Comment: Testing | 1.12 - 1.32 | EXTERNAL | | | Calcium, | performed at [facility];[address] | mmol/L | LAB | | | POC | [address];[place] | | | | | | [address] | | | | + + + + + + | Glucose, | 191 (H)Comment: Testing | 65 - 99 mg/dL | EXTERNAL | | | POC | performed at [facility];[address] | | LAB | | | | [address];[place] | | | | | | [address] | | | | + + + + + + | Hematocrit, | 35 (L)Comment: Testing | 40.0 - 50.0 % | EXTERNAL | | | POC | performed at [facility];[address] | | LAB | | | | [address];[place] | | | | | | [address] | | | | + + + + + + | Hemoglobin, | 11.9 (L)Comment: Testing | 13.7 - 16.7 | EXTERNAL | | | POC | performed at [facility];[address] | g/dL | LAB | | | | [address];[place] | | | | | | [address] | | | | + + + [...] EXTERNAL | | | | performed at [facility], [address] | K/uL | LAB | | | | [address], | | | | | | [place] [address] | | | | + + + + + + | RED CELL | 4.00 (L)Comment: Testing | 4.20 - 5.70 | EXTERNAL | | | COUNT | performed at [facility], [address] | M/uL | LAB | | | | [address], | | | | | | [place] [address] | | | | + + + + + + | Hgb | 11.0 (L)Comment: Testing | 13.2 - 17.0 | EXTERNAL | | | | performed at [facility], [address] | g/dL | LAB | | | | [address], | | | | | | [place] [address] | | | | + + + + + + | Hematocrit, | 33.7 (L)Comment: Testing | 39.0 - 50.0 % | EXTERNAL | | | POC | performed at [facility], [address] | | LAB | | | | [address], | | | | | | [place] [address] | | | | + + + + + + | MCV | 84.3Comment: Testing | 80.0 - 100.0 fl | EXTERNAL | | | | performed at [facility], [address] | | LAB | | | | [address], | | | | | | [place] [address] | | | | + + + + + + | MCH | 27.6Comment: Testing | 27.0 - 34.0 pg | EXTERNAL | | | | performed at [facility], [address] | | LAB | | | | [address], | | | | | | [place] [address] | | | | + + + + + + | MCHC | 32.8Comment: Testing | 32.0 - 35.5 | EXTERNAL | | | | performed at [facility], [address] | g/dL | LAB | | | | [address], | | | | | | [place] [address] | | | | + + + + + + | RDW-CV | 45.1Comment: Testing | 37 - 53 fl | EXTERNAL | | | | performed at [facility], [address] | | LAB | | | | [address], | | | | | | [place] [address] | | | | + + + + + + | Platelet | 135 (L)Comment: Testing | 150 - 400 K/uL | EXTERNAL | | | Count | performed at [facility], [address] | | LAB | | | Plasma | [address], | | | | | | [place] [address] | | | | + + + + + + | MPV | 9.2Comment: Testing | fl | EXTERNAL | | | | performed at [facility], [address] | | LAB | | | | [address], | | | | | | [place] [address] | | | | + + + + + + | Differentia | AUTOMATEDComment: | | EXTERNAL | | | l Type | Testing performed at | | LAB | | | | [facility], [address] | | | | | | [place] | | | | | | [address] | | | | + + + + + + | % Segmented | 75.95Comment: Testing | % | EXTERNAL | | | | performed at [facility], [address] | | LAB | | | Neutrophils | [address], | | | | | | [place] [address] | | | | + + + + + + | % | 14.93Comment: Testing | % | EXTERNAL | | | Lymphocytes | performed at [facility], [address] | | LAB | | | | [address], | | | | | | [place] [address] | | | | + + + + + + | % Monocytes | 8.68Comment: Testing | % | EXTERNAL | | | | performed at [facility], [address] | | LAB | | | | [address], | | | | | | [place] [address] | | | | + + + + + + | % | 0.25Comment: Testing | % | EXTERNAL | | | Eosinophils | performed at [facility], [address] | | LAB | | | | [address], | | | | | | [place] [address] | | | | + + + + + + | % Basophils | 0.19Comment: Testing | % | EXTERNAL | | | | performed at [facility], [address] | | LAB | | | | [address], | | | | | | [place] [address] | | | | + + + + + + | Absolute | 6.90Comment: Testing | 1.90 - 7.40 | EXTERNAL | | | Segmented | performed at [facility], [address] | K/uL | LAB | | | Neutrophils | [address], | | | | | | [place] [address] | | | | + + + + + + | Absolute | 1.36Comment: Testing | 1.00 - 3.90 | EXTERNAL | | | Lymphocytes | performed at [facility], [address] | K/uL | LAB | | | | [address], | | | | | | [place] [address] | | | | + + + + + + | Absolute | 0.79Comment: Testing | 0.00 - 0.80 | EXTERNAL | | | Monocytes | performed at [facility], [address] | K/uL | LAB | | | | [address], | | | | | | [place] [address] | | | | + + + + + + | Absolute | 0.02Comment: Testing | 0.00 - 0.50 | EXTERNAL | | | Eosinophils | performed at [facility], [address] | K/uL | LAB | | | | [address], | | | | | | [place] [address] | | | | + + + + + + | Absolute | 0.02Comment: Testing | 0.00 - 0.10 | EXTERNAL | | | Basophils | performed at [facility], [address] | K/uL | LAB | | | | [address], | | | | | | [place] [address] | | | | + + + [...] | | | | | [place] [address] | | | | + + + + + + | K | 4.1Comment: Testing | 3.5 - 4.9 | EXTERNAL | | | | performed at [facility], [address] | mmol/L | LAB | | | | [address], | | | | | | [place] [address] | | | | + + + + + + | Cl | 102Comment: Testing | 99 - 109 mmol/L | EXTERNAL | | | | performed at [facility], [address] | | LAB | | | | [address], | | | | | | [place] [address] | | | | + + + + + + | CO2 | 26Comment: Testing | 23 - 32 mmol/L | EXTERNAL | | | | performed at [facility], [address] | | LAB | | | | [address], | | | | | | [place] [address] | | | | + + + + + + | Anion Gap | 10Comment: Testing | 5 - 20 mmol/L | EXTERNAL | | | | performed at [facility], [address] | | LAB | | | | [address], | | | | | | [place] [address] | | | | + + + + + + | Glucose, | 109 (H)Comment: Testing | 65 - 99 mg/dL | EXTERNAL | | | Fasting | performed at [facility], [address] | | LAB | | | | [address], | | | | | | [place] [address] | | | | + + + + + + | BUN | 7 (L)Comment: Testing | 8 - 25 mg/dL | EXTERNAL | | | | performed at [facility], [address] | | LAB | | | | [address], | | | | | | [place] [address] | | | | + + + + + + | Creatinine | 0.62 (L)Comment: Testing | 0.70 - 1.30 | EXTERNAL | | | | performed at [facility], [address] | mg/dL | LAB | | | | [address], | | | | | | [place] [address] | | | | + + + + + + | BUN/Creatin | 11Comment: Testing | | EXTERNAL | | | ine Ratio | performed at [facility], [address] | | LAB | | | | [address], | | | | | | [place] [address] | | | | + + + + + + | Calcium | 8.8Comment: Testing | 8.5 - 10.5 | EXTERNAL | | | | performed at [facility], [address] | mg/dL | LAB | | | | [address], | | | | | | [place] [address] | | | | + + + [...] | | | | | [place] [address] | | | | + + + [...] | | | | | [place] [address] | | | | + + + + + + | Clarity | CLEARComment: Testing | | EXTERNAL | | | | performed at [facility], [address] | | LAB | | | | [address], | | | | | | [place] [address] | | | | + + + + + + | Specific | 1.029Comment: Testing | 1.002 - 1.030 | EXTERNAL | | | [place] | performed at [facility], [address] | | LAB | | | | [address], | | | | | | [place] [address] | | | | + + + + + + | Leukocyte | NEGATIVEComment: Testing | | EXTERNAL | | | Esterase, | performed at [facility], [address] | | LAB | | | Urine | [address], | | | | | | [place] [address] | | | | + + + + + + | Nitrite, | NEGATIVEComment: Testing | | EXTERNAL | | | Urine | performed at [facility], [address] | | LAB | | | | [address], | | | | | | [place] [address] | | | | + + + + + + | Urobilinoge | 1.0Comment: Testing | mg/dL | EXTERNAL | | | n, Urine | performed at [facility], [address] | | LAB | | | | [address], | | | | | | [place] [address] | | | | + + + + + + | Protein, | NEGATIVEComment: Testing | mg/dL | EXTERNAL | | | Urine | performed at [facility], [address] | | LAB | | | | [address], | | | | | | [place] [address] | | | | + + + + + + | pH, Urine | 5.0Comment: Testing | 5.0 - 8.0 | EXTERNAL | | | | performed at [facility], [address] | | LAB | | | | [address], | | | | | | [place] [address] | | | | + + + + + + | Blood, | NEGATIVEComment: Testing | | EXTERNAL | | | Urine | performed at [facility], [address] | | LAB | | | | [address], | | | | | | [place] [address] | | | | + + + + + + | Ketones | 40 (A)Comment: Testing | mg/dL | EXTERNAL | | | | performed at [facility], [address] | | LAB | | | | [address], | | | | | | [place] [address] | | | | + + + + + + | Bilirubin, | NEGATIVEComment: Testing | | EXTERNAL | | | Urine | performed at [facility], [address] | | LAB | | | | [address], | | | | | | [place] [address] | | | | + + + + + + | Glucose, | NEGATIVEComment: Testing | mg/dL | EXTERNAL | | | Urine | performed at [facility], [address] | | LAB | | | | [address], | | | | | | [place] [address] | | | | + + + [...] EXTERNAL LAB | | Testing performed at [facility];[address] [place] [address];[place] [address] MRSA PCR | | | NEGATIVE Testing performed at | | | [address];[place] [address] | | + + + + +---------+ [...] ISOLATED | | | Testing performed at [facility], [address] | | | [place] [address] | | + + + + +---------+ [...] GROWTH | | | Testing performed at [facility], [address], | | | [place] [address] | | + + + + +---------+ [...] LAB | | | | Blvd;[place] [address] | | | | + + + + + + | Antibody | NEGATIVE | | EXTERNAL | | | Screen | | | LAB | | + + + + + + | Antibody | Testing performed at | | EXTERNAL | | | Screen | [facility];[address] | | LAB | | | | [address];[place] [address] | | | | + + + + + + | BB BAND | [id number] | | EXTERNAL | | | | | | LAB | | + + + + + + | BB BAND | Testing performed at | | EXTERNAL | | | | [facility];[address] | | LAB | | | | [address];[place] [address] | | | | + + + [...]
--- OUTSIDE RECORDS SUMMARY | ~2019-09-09 | XMS | Encounter Summary ---
Demographics + + + | Address | [address] | | | [place] [address] | + + + | Home Phone [...] Team Providers + +------+ + | Care Wood Treating Inspector Name | Role | Phone | [...] + + | 08/09/ | Hospital | [facility] | BeyRamiro stoll, | Alcoholism (HCC) | | 2015 - | Encounter | [facility] | [address] | (Primary Dx); | | | | [address] | [place] | Hypokalemia; | | 08/14/ | | [place], [place] [address] | [address] | Pyelonephritis; | | 2014 | | [phone] | [phone] | Sepsis, due to | | | [...] West MD - 08/14/2015 10:35 AM PST [facility] DISCHARGE SUMMARY Pt. Name/Age/: Tony [...] complete 14-day total course of therapy at [facility]. Vital signs, physical examination, and laboratory values were within appropriate limits at time of discharge. Patient discharged to SNF ([facility] in [place], [place]). Labs admission/discharge days: WBC 12.2 -> [...] He denies any other problems. [facility] to [facility] today. Patient denies headache, fever, chills, [...] 2 weeks. Specialty: Family Medicine Contact information: [address] [place] [address] Condition: Patient being discharged with condition improved. Diet: Regular Activity: as tolerated, but up with assistance only (high fall risk) Greater than 30 minutes were spent on discharge and coordination of post-hospital care. Electronically signed by: Marco Antonio West MD, 08/14/2015 10:35 [facility] documented in thi s encounter Discharge Instructions Instructions Marco Antonio West MD - 08/14/2015Regular diet. Activity as tolerated. Up with assistance only (high fall risk). Follow-up with PCP Mason Oliveira DO in 2 weeks. AttachmentsThe following attachments cannot be sent through Care Everywhere.PERIPHERALLY IN SERTED CENTRAL CATHETER (PICC), DISCHARGE INSTRUCTIONS FOR CARING FOR YOUR (NAMIBIAN)document ed in this encounter Medications at Time [...] Brunson MD - 08/13/2015 4:59 PM PST [facility] PROGRESS NOTE Patient: Tony Sánchez : 1960: Age: 54 y.o. MedRec: [id number] Admission date: 08/09/2015 Hospital day # : [...] CKTOTAL No results for input(s): PHART, PO2ART, UAN2DLI, WTJ5HKM, BEART, W1RLKAQA in the last 168 h ours. Point [...] stable 8) Dispo - likely back to [facility] 08/14 if they can accept back Marco Antonio West MD 08/13/2015 16:59 [facility] asch, Nae Baumann MD - 08/12/2015 1:29 PM PST [facility] HOSPITALIST PROGRESS NOTE PATIENT NAME: Tony Sánchez AGE: 54 y.o. DATE OF SERVICE: 08/12/2015 SUBJECTIVE: No new concerns. Called [facility], set up fax of results 08/11 final [...] this chart may have been created using [employer] Thief voice recognition software. Occas ional wrong-word or "sound alike" substitutions may have occurred due to the inherent limita tions of voice recognition software. Please read chart carefully and recognize using context where these substitutions have occurred.Electronically signed by Nae Lala MD at 1:32 PM PSTRasch, Nae Baumann MD - 08/11/2015 4:25 PM PSTFormatting of this note mi ght be different from the original. [facility] HOSPITALIST PROGRESS NOTE PATIENT NAME: [...] display. Plan: continue empiric antibiotics, call from [facility] with blood cx + gram neg josefina. aw aiting final for treatment plan and discharge planning DATE/TIME: 08/11/2015 16:25 SIGNED: Nae Lala MD Portions of this chart may have been created using [employer]ief voice recognition software. Occas ional wrong-word or "sound alike" substitutions may have occurred due to the inherent limita tions of voice recognition software. Please read chart carefully and recognize using context where these substitutions have occurred.Electronically signed by Nae Lala MD at 4:27 PM PSTLocated Within [facility], Nae Baumann MD - 08/10/2015 3:00 PM PSTFormatting of this note mi ght be different from the original. [facility] HOSPITALIST PROGRESS NOTE PATIENT NAME: [...] display. Plan: continue empiric antibiotics, call from [facility] with blood cx + gram neg josefina. DATE/TIME: 08/10/2015 15:00 SIGNED: Nae Lala MD Portions of this chart may have been created using [employer]ief voice recognition software. Occas ional wrong-word or [...] [address] | [place] | [phone] | | [facility] | | [address] | | | - LABORATORY | | [...] [address] | [place] | [phone] | | [facility] | | [address] | | | - LABORATORY | | [...] mL/min/1.73m2 | Gris NATALIA | | | CAMERO[place]IAN | | | MEDICAL | | | [...] + | [facility] | [address] | [place] | [phone] | | [facility] | | [address] | | | - LABORATORY | | [...] [address] | [place] | [phone] | | [facility] | | [address] | | | - LABORATORY | | [...] | samples are screened | uIU/mL | [facility] | | | | using a 2nd [...] [address] | [place] | [phone] | | [facility] | | [address] | | | - LABORATORY | | [...] + | [facility] | [address] | [place] | [phone] | | [facility] | | [address] | | | - LABORATORY | | [...] | | B-12 | <145 | | [facility] | | | | pg/mLINDETERMINATE: | [...] [address] | [place] | [phone] | | [facility] | | [address] | | | - LABORATORY | | [...] [address] | [place] | [phone] | | [facility] | | [address] | | | - LABORATORY | | [...] [address] | [place] | [phone] | | [facility] | | [address] | | | - LABORATORY | | [...] + | [facility] | [address] | [place] | [phone] | | [facility] | | [address] | | | - LABORATORY | | [...] mL/min/1.73m2 | [facility] | | | CAMEROONIAN | RATE,ESTIMATED | | MEDICAL | | | | mL/min/1.12t7Wgzd than | | CENTER - | | [...] [address] | [place] | [phone] | | [facility] | | [address] | | | - LABORATORY | | [...] [address] | [place] | [phone] | | [facility] | | [address] | | | - LABORATORY | | [...] mL/min/1.73m2 | [facility] | | | CAMERO[place]IAN | RATE,ESTIMATED | | MEDICAL | | | | mL/min/1.54h9Zdko than | | CENTER - | | [...] + | [facility] | [address] | [place] | [phone] | | [facility] | | [address] | | | - LABORATORY | | [...] ST. | [address] | [place] | [phone] | | [facility] | | [address] | | | - LABORATORY | | [...] | mL/min/1.73m2 | NATALIA | | | CAMEROONIAN | RATE,ESTIMATED | | MEDICAL | | | | mL/min/1.18i7Kuvt than | | CENTER - | | [...] [address] | [place] | [phone] | | [facility] | | [address] | | | - LABORATORY | | [...] + | [facility] | [address] | [place] | [phone] | | [facility] | | [address] | | | - LABORATORY | | [...] mL/min/1.73m2 | [facility] | | | CAMEROONIAN | RATE,ESTIMATED | | MEDICAL | | | | mL/min/1.02x8Lrlo than | | CENTER - | | [...] [address] | [place] | [phone] | | [facility] | | [address] | | | - LABORATORY | | [...] [address] | [place] | [phone] | | [facility] | | [address] | | | - LABORATORY | | [...] + | [facility] [facility] | [address] | [place] | [phone] | | [facility] | | [address] | | | - LABORATORY | | [...] - 1.030 | [facility] | | | [place] | | | [facility] | | [...] [address] | [place] | [phone] | | [facility] | | [address] | | | - LABORATORY | | [...] ST. | [address] | [place], [place] | [phone] | | [facility] | | [address] | | | - LABORATORY | | [...] [address] | [place] | [phone] | | [facility] | | [address] | | | - LABORATORY | | [...] + | [facility] | [address] | [place] | [phone] | | [facility] | | [address] | | | - LABORATORY | | [...] mL/min/1.73m2 | [facility] | | | CAMEROONIAN | RATE,ESTIMATED | | MEDICAL | | | | mL/min/1.57j8Uwtp than | | CENTER - | | [...] | ine Ratio | | | [facility] | | | | | | MEDICAL [...] ST. | [address] | [place] | [phone] | | [facility] | | [address] | | | - LABORATORY | | [...] [address] | [place] | [phone] | | [facility] | | [address] | | | - LABORATORY | | [...] | | | | | | use [place] 10/325 if ordered. If | | | [...]
--- OUTSIDE RECORDS SUMMARY | ~2019-09-09 | XMS | Encounter Summary ---
Demographics + + + | Address | [address] | | | [place] [address] | + + + | Home Phone [...] Team Providers + +------+ + | Care Pharmaceutical Laboratory Technician Name | Role | Phone | [...] | | | | | [place], | | | | | | [place] [address] | | | | | | [phone] | | | +--------+ + + + [...]
--- OUTSIDE RECORDS SUMMARY | ~2019-09-09 | XMS | Encounter Summary ---
Demographics + + + | Address | [address] | | | [place] [address] | + + + | Home Phone [...] Team Providers + +------+ + | Care Lpn Instructor Name | Role | Phone | [...] | Transcriptions | + + | Interface, Can Runner In - 04/16/2006 1:08 AM PDT | | [address] | | [place], [place] [id number] | | [facility] CenterOPERATION RECORDMed Rec No.: | [...] be done | | [place]. [place] were happy to splint him if [...] isgoing to follow up | | in [place], although, if cares to come back here, wewill be happy to see him in Dr. | | Rodo Maldonado, adult orthopedic clinic.Wade Villalta M.D.FARTUN/ellyoD: 02/17/2003T: | | 02/17/2003 12:31 [id number] | |OPERATIONS PERFORMED: The patient was taken [...] is | |going to follow up in [place], although, if cares to come back here, we | |will be happy to see him in Dr. Rodo Maldonado, adult orthopedic clinic. | | | | | | | |Wade Villalta M.D. | | | |Donaldo | | | | P | |[phone] | + + documented in this encounter Visit Diagnoses Not on filedocumented in this encounter"
--- OUTSIDE RECORDS SUMMARY | ~2019-09-09 | XMS | Encounter Summary ---
Demographics + + + | Address | [address] | | | [place] [address] | + + + | Home Phone [...] Providers + +------+ + | Care Enrollment Specialist Name | Role | Phone | + +------+ + PCP | Unavailable | + +------+ + Encounter Details +--------+ + + + + | Date | Type | Department | Care Team | Description | +--------+ + + + + | 02/17/ | Results | [facility] | Wade Villalta MD | | | 2002 | Only | & Rehabilitation | [address] [facility] | | | | | [address] [facility] | [address] | | | | | Mailcode: PV430 | [place], [place] | | | | | Brian | [address] | | | | | [place], [place] | [phone] | | | | | [address] | | | | | | [phone] | | | +--------+ + + + [...]
--- OUTSIDE RECORDS SUMMARY | ~2019-09-09 | XMS | Encounter Summary ---
Demographics + + + | Address | [address] | | | [place] [address] | + + + | Home Phone | | + + + | Preferred Language | Unknown | + + + | Marital Status | | + + + | Mu-Ism Affiliation | Unknown | + + + | Race | Unknown | + + + | Ethnic Group | Unknown | + + + Author + + + | Author | [facility] | | | and Olegarioana | + + + | Organization | [facility] | | [...] Providers + +------+ + | Care Manager Cash Name | Role | Phone | + +------+ + PCP | Unavailable | + +------+ + Encounter Details +--------+ + + + + | Date | Type | Department | Care Team | Description | +--------+ + + + + | 09/11/ | Hospital | [facility] | Rosa Isela Vásquez, | End Stage Renal | | 2008 - | Encounter | [facility] | [address] | Disease (HCC) | | | | CARE FLOOR [address] | [facility] [address], | | | 09/16/ | | [address] | [place] [address] | | | 2008 | | [place], [place] | [phone] | | | | | [address] | | | | | | [phone] | Maria Luisa Barry, | | | | | | [address] | | | | | | [place] [address] | | | | | | [phone] | | | | | | | [...] Performed At | + + + | [facility] | | | [facility] [address] | | | , | | | [id number]/RADIOLOGY Patient Name: EVANS MCGUIRE Date of | | | : 1960 Medical Record: [id number] Account: | | | [id number] I/P/JAZMÍN / Exam Date/Time: | | | [...] P A | | | 10:28 A /boom/[id number]/ cc: MD GIGI GARCIA | | | MD PEPITO | | + + + + + | Procedure Note | + + | Marlon Santamaria Conversion - 05/14/2019 10:02 PM PDT | | [facility] | | [facility] [address] | | , | | | | [id number]/RADIOLOGY | | | | Patient Name: EVANS MCGUIRE | | Date of : 1960 | | Medical Record: [id number] | | Account: [id number] | | I/P/[facility] / | | | | [...] | A | | A | | /boom/[id number]/ | | cc: JEFF AMANDA MD | | GIGI BEYER MD | + + XR Abdomen AP (09/12/2009 12:11 PM PST) + + | Specimen | + + | | + + + + + | Narrative | Performed At | + + + | [facility] | | | [facility] [address] | | | , | | | [id number]/RADIOLOGY Patient Name: EVANS MCGUIRE Date of | | | : 1960 Medical Record: [id number] Account: | | | [id number] I/P/[facility] / Exam Date/Time: | | [...] | | | 09/12/2009 01:48 P P J/carlota/[id number]/ cc: | | | MD GIGI ARTHUR MD | | + + + + + | Procedure Note | + + | Marlon Santamaria Conversion - 05/14/2019 10:02 PM PDT | | [facility] | | [facility] [address] | | , | | | | [id number]/RADIOLOGY | | | | Patient Name: EVANS MCGUIRE | | Date of : 1960 | | Medical Record: [id number] | | Account: [id number] | | I/P/CCC / | | | [...] | P | | P | | BRIAN/carlota/[id number]/ | | cc: JOE CASILLAS MD | | GIGI BEYER MD | + + MRI Brain Wo MRA Head Wo (09/12/2009 11:17 AM PST) + + | Specimen | + + | | + + + + + | Narrative | Performed At | + + + | [facility] | | | [facility] [address] | | | , | | | [id number]/RADIOLOGY Patient Name: EVANS MCGUIRE Date of | | | : 1960 Medical Record: [id number] Account: | | | [id number] I/P/JAZMÍN / Exam Date/Time: | | | [...] DT: | | | 09/12/2009 11:55 A [facility]/[id number]/ cc: JOE CASILLAS MD | | | MD GIGI TOSCANO MD | | + + + + + | Procedure Note | + + | Marlon Santamaria Conversion - 05/14/2019 10:02 PM PDT | | [facility] | | [facility] [address] | | , | | | | [id number]/RADIOLOGY | | | | Patient Name: EVANS MCGUIRE | | Date of : 1960 | | Medical Record: [id number] | | Account: [id number] | | I/P/[facility] / | | | | [...] | A | | A | | [facility]/[id number]/ | | cc: JOE CASILLAS MD | | MARIA LUISA BARRY MD | | GIGI BEYER MD | + + XR Chest 1 Vw (09/12/2009 5:40 AM PST) + + | Specimen | + + | | + + + + + | Narrative | Performed At | + + + | [facility] | | | [facility] [address] | | | , | | | [id number]/Diagnostic Outsourced Patient Name: EVANS MCGUIRE | | | Date of : 1960 Medical Record: [id number] Account: | | | [id number] I/P/[facility] / Exam Date/Time: | | [...] A A | | | 09:19 A RONALD/ccv/[id number]/ cc: MD LYNNE TOSCANO | | | MD GIGI VILLEGAS MD | | + + + + + | Procedure Note | + + | Marlon Santamaria Conversion - 05/14/2019 10:02 PM PDT | | [facility] | | [facility] [address] | | , | | | | [id number]/Diagnostic Outsourced | | | | Patient Name: EVANS MCGUIRE | | Date of : 1960 | | Medical Record: [id number] | | Account: [id number] | | I/P/[facility] / | | | | [...] | A | | A | | MM/ccv/[id number]/ | | cc: MARIA LUISA BARRY MD | | LYNNE VILLEGAS MD | | GIGI BEYER MD | + + CT Head wo Contrast (09/12/2009 2:49 AM PST) + + | Specimen | + + | | + + + + + | Narrative | Performed At | + + + | [facility] | | | [facility] [address] | | | , | | | [id number]/Diagnostic Outsourced Patient Name: EVANS MCGUIRE | | | Date of : 1960 Medical Record: [id number] Account: | | | [id number] I/P/[facility] / Exam Date/Time: | | [...] A A | | | 08:58 A MM/onel/[id number]/ cc: MD LYNNE TOSCANO | | | MD GIGI VILLEGAS MD | | + + + + + | Procedure Note | + + | Marlon Santamaria Conversion - 05/14/2019 10:02 PM PDT | | [facility] | | [facility] [address] | | , | | | | [id number]/Diagnostic Outsourced | | | | Patient Name: EVANS MCGUIRE | | Date of : 1960 | | Medical Record: [id number] | | Account: [id number] | | I/P/[facility] / | | | | [...] | A | | A | | MM/onel/[id number]/ | | cc: MARIA LUISA BARRY MD | | LYNNE VILLEGAS MD | | GIGI BEYER MD | + + XR Chest 1 Vw (09/11/2009 8:25 PM PST) + + | Specimen | + + | | + + + + + | Narrative | Performed At | + + + | [facility] | | | [facility] [address] | | | , | | | [id number]/RADIOLOGY Patient Name: EVANS MCGUIRE Date of | | | : 1960 Medical Record: [id number] Account: | | | [id number] I/P/[facility] / Exam Date/Time: | | [...] | | | 09/11/2009 11:01 P P DTB/gf/[id number]/ cc: | | | MD MARIA LUISA LITTLE MD HANI S | | | MD PEPITO | | + + + + + | Procedure Note | + + | Marlon Santamaria Conversion - 05/14/2019 10:02 PM PDT | | [facility] | | [facility] [address] | | , | | | | [id number]/RADIOLOGY | | | | Patient Name: EVANS MCGUIRE | | Date of : 1960 | | Medical Record: [id number] | | Account: [id number] | | I/P/CCC / | | | [...] | P | | P | | DTB//[id number]/ | | cc: RONNY RAYA MD | | MARIA LUISA BARRY MD | | GIGI BEYER MD | + + documented in this encounter Visit Diagnoses + + | Diagnosis | + + | End stage renal disease (HCC) End stage renal disease | + + documented in this encounter"
--- OUTSIDE RECORDS SUMMARY | ~2019-09-09 | XMS | Encounter Summary ---
Demographics + + + | Address | [address] | | | [place] [address] | + + + | Home Phone [...] Team Providers + +------+ + | Care Operator Automated Process Name | Role | Phone | + +------+ + PCP | Unavailable | + +------+ + Encounter Details +--------+ + + + + | Date | Type | Department | Care Team | Description | +--------+ + + + + | 06/22/ | Hospital [facility] | Sandip Hall MD | | | 2008 - | Encounter | [facility] | [address] | | | | | MED [address] [place] [address] S | [place] [address] | | | 06/23/ | | [address] | [phone] | | | 2008 | | [place], [place] | | | | | | [address] | Elizabeth Galan MD | | | | | [phone] | [address] | | | | | | [address] [place], | | | | | | [place] [address] | | | | | | [phone] | | +--------+ + + + + [...] MEDICAL HISTORY: The patient is a 48-year-old [place] with a long history of known liver cirrhosis, end-stage liver disease secondary to alcoholism and hepatitis B and history of drug abuse who came into the emergency department in [place] with hepatic encephalopathy, having been at the [facility] visiting with his grandmother, found to be [...] needs to get back one to his [facility] clinic and to return to his [...] and was discharged to return to his [facility] clinic, which he promises me he [...] time until cleared by his primary care advocate. I spent 46 minutes seeing patient, coordinating discharge, and attempting to prenatal genetic counselor him into staying. _ TOBIN JAVIER MD D: Yoselyn Jun 23 16:37:54 2008 EST T: Yoselyn Jun 23 23:55:09 2008 EST Authenticated by Tobin Javier MD On 06/24/2009 06:22:14 AM [facility] - 06/23/2009 12:00 AM PDT documented in this enc ounter Progress Notes ONSARAH SCAN [facility] - 06/24/2009 12:00 AM PDT ECKY [facility]ORDON - 06/24/2009 12:00 AM PDT NSARAH SCAN [place] - 06/24/2009 12:00 AM PDT documented [...] mild bony spurring in the AC joint. [place] EXAM NUMBER: | | | [id number] CHEST 1V NET=[id number] | | + + + + + [...] spurring in the AC joint. | | [place] EXAM NUMBER: [id number] CHEST 1V CRT=[id number] | | IMPRESSION: | | IMPRESSION: No [...]
--- OUTSIDE RECORDS SUMMARY | ~2019-09-09 | XMS | Encounter Summary ---
Demographics + + + | Address | [address] | | | [place] [address] | + + + | Home Phone | | + + + | Preferred Language | Unknown | + + + | Marital Status | Single | + + + | [employer]ar[employer] Affiliation [...] Team Providers + +------+ + | Care Loan Officer Assistant Name | Role | Phone | + +------+ + PCP | Unavailable | + +------+ + Encounter Details +--------+ + + + + | Date | Type | Department | Care Team | Description | +--------+ + + + + | 02/17/ | Results | Orthopaedics at | [place], | | | 2002 | Only | [facility] [address] | MD Manuelito | | | | [address] | | | | | | Mailcode: [id number] | | | | | | [facility] | | | | | | [place], [place] | | | | | | [address] | | | | | | [phone] | | | +--------+ + + + [...]
--- OUTSIDE RECORDS SUMMARY | ~2019-09-09 | XMS | Clinical Summary ---
Demographics + + + | Address | [address] | | | [place] [address] | + + + | Home Phone [...] Team Providers + +------+ + | Care Livestock Farm Manager Name | Role | Phone | [...] fluids, | | vancomycin, and cefepime at [facility], now hemodynamically | | stable- Has urinary source, so will treat with IV ceftriaxone and | | await cultures from [place] | + + + + + + [...] planning to get him into SNF on [facility] | | reservation | + + [...] | | 2018 | Event | | [facility] Herrmann, | | | | | | SALESPERSON [employer]ERE[employer] EQUIPMENT | | +--------+ + + + + [...] | | | (FORMERLY [facility]); Other closed | | | [...] | | | ([facility]ERLY [facility]); Closed | | | | [...] [place] | | | [phone] | | [id number]: Qty: 1 | | Ulna | SYNTHES - | | | 1 / / | | on 06/19/2019 by Kwabena, | | | SYNT | | | | | MD Tony at [facility] | | | | | | | | [facility] | | | | | | | + +-------+--------+ +--------+--------+--------+ | Screw Crtx Slf-Tp Ss 3.5x20mm | Screw | Right: | [facility] DEPUY | | | 204.82 | | - [id number]: Qty: | | Ulna | SYNTHES - | | | / / | | 3 on 06/19/2019 by Kwabena, | | | SYNT | | | | | MD Tony at [facility] | | | | | | | | [facility] | | | | | | | + +-------+--------+ +--------+--------+--------+ | Screw Crtx Slf-Tp Ss 3.5x22mm | Screw | Right: | [facility] DEPUY | | | 204.82 | | - [id number]: Qty: | | Ulna | SYNTHES - | | | 2 / / | | 2 on 06/19/2019 by Kwabena, | | | SYNT | | | | | MD Tony at [facility] | | | | | | | | [facility] | | | | | | | + +-------+--------+ +--------+--------+--------+ | Screw Crtx Slf-Tp Ss 3.5x24mm | Screw | Right: | [facility] DEPUY | | | 204.82 | | - [id number]: Qty: | | Ulna | SYNTHES - | | | 4 / / | | 1 on 06/19/2019 by Kwabena, | | | SYNT | | | | | MD Tony at [facility] | | | | | | | | [facility] | | | | | | | + +-------+--------+ +--------+--------+--------+ | Screw Crtx Slf-Tp 2.7x18mm - | Screw | Right: | ChristinaJS DEP | | | 202.81 | | [id number]: Qty: 1 | | Ulna | SYNTHES - | | | 8 / / | | on 06/19/2019 by Kwabena, | | | SYNT | | | | | MD Tony at [facility] | | | | | | | | [facility] | | | | | | | + +-------+--------+ +--------+--------+--------+ | Duragen 5"X7" - | | | NA UNKNOWN | | 01/18/ | [id number] | | [id number]: Qty: 1 on | | | | | 2016 | / | | 10/11/2014 by Arlette, | | | | | | /[id number] | | Anthony HENRIQUEZ MD | | | | | | 21 | + +-------+--------+ +--------+--------+--------+ | Algrft Dura Durgn Mtrx 3x3 | | Right: | [employer] | | 08/27/ | ID-330 | | Bx5 - [id number]: Qty: | | Brain | NEUROSCIENC | | 2016 | 5 / | | 1 on 05/28/2015 by Earl, | | | FRANCK - INNE | | | /[id number] | | Gloria Baumann MD | | | | | | 52 | + +-------+--------+ +--------+--------+--------+ | Mesh Grid Hcd 11x7.5 | | Right: | [employer] - | | | 015-20 | | - - | | Brain | MEDT | | | -4 / | | [id number]: Qty: 1 on | | | | | | / | | 05/28/2015 by Gloria Elliott | | | | | | | | L, MD | | | | | | | + +-------+--------+ +--------+--------+--------+ | Plate Dbl Y 3h 5mm - | | Right: | [employer] - | | | 015- | | [id number]: Qty: 2 on | | Brain | MEDT | | | 7 / | | 05/28/2015 by Gloria Elliott | | | | | | /[id number] | | L, MD | | | | | | 98 | + +-------+--------+ +--------+--------+--------+ | Screw S/Tap 1.6x4.0 - | | Right: | [employer] - | | | [id number] | | [id number]: Qty: 14 on | | Brain | MEDT | | | 0 / / | | 05/28/2015 by Gloria Elliott | | | | | | | | L, MD | | | | | | | + +-------+--------+ +--------+--------+--------+ | Plate Dogbone 8mm - | | Right: | [employer] - | | | 015-04 | | [id number]: Qty: 1 on | | Brain | MEDT | | | 2 / | | 05/28/2015 by Gloria Elliott | | | | | | /[id number] | | LMD | | | | | | 58 | + +-------+--------+ +--------+--------+--------+ | Screw S/Tap 1.6x4.0 - | | | [employer] - | | | [id number] | | [id number]: Qty: 8 on | | | MEDT | | | 0 | | 05/29/2015 by Gloria Elliott | | | | | | /[id number] | | L, MD | | | | | | 40 / | + +-------+--------+ +--------+--------+--------+ | Algrft Dura Durgn Mtrx 3x3 | | | [employer] | | 08/20/ | ID-330 | | Bx5 - [id number]: Qty: | | | NEUROSCIENC | | 2016 | 5 | | 1 on 05/29/2015 by Earl, | | | FRANCK - INNE | | | /[id number] | | Gloria Baumann MD | | | | | | 5 | | | | | | | | /[id number] | | | | | | | [...] J?MRN: | | | | | | [id number] | | | [id number] | | | riteri | | | [...] | | | St. | | | [place] | | | y | | | [...] | | | St. | | | [place] | | | y | | | [...] | | | St. | | | [place] | | | y | | | [...] | | | St. | | | [place] | | | y H. | | [...] | | | St. | | | [place] | | | y H. | | [...] | | | POC | Performed by [facility] [address] | | [place] | | | | [address] [place], [place] | | HEART | | | | [address] | | MEDICAL | | | | [...] + + | [facility] K[facility] | [address] | [place] [address] | | | [facility] | | [...] | Procedure Note | + + | Malron Santamaria Results In - 06/20/2019 4:43 PM [...] + + | Performing | Address | City/State/[facility] | Phone Number | [...] + + | Performing | Address | City/State/[facility] | Phone Number | [...] | | | | | | LAB [facility] | | | | | | [facility] | | | | | | [facility] | | | | | | BLOOD | | | | | | CENTER | | + + + + + + | Rh Type | PositiveComment: Patient | | REFERENCE | | | | is remote crossmatch | | [facility] | | | | eligible | | [...] + + + | Specimen Expiration Date: [id number] | REFERENCE LAB | | | [facility] | | | [facility] | | | [facility] | + + + + + + + + | Performing | Address | City/State/Zipcode | Phone Number | | Organization | | | | + + + + + | REFERENCE LAB | [address] | [place] [address] | [phone] | | [facility] | | | | | [facility] [...] | TRACEMASTER | | Duration:148 msP Horizontal [place]:21 degP Front [place]:46 degQ Onset:508 | | | msQRSD Interval:128 msQT Interval:356 msQTcB:443 msQTcF:412 msQRS | | | Horizontal [place]:88 degQRS [place]:-25 degI-40 Horizontal [place]:53 degI-40 | | | Front [place]:8 degT-40 Horizontal [place]: degT-40 Front [place]:178 degT | | | Horizontal [place]:28 degT Wave [place]:14 degS-T Horizontal [place]:25 degS-T | | | Front [place]:19 degSeverity:- ABNORMAL ECG -INTERP:SINUS | | | RHYTHMINTERP:RIGHT BUNDLE BRANCH BLOCKElectronically signed by: RASHEED, | | | LARRY Hopkins 06-19-2019 08:30:08 | | |QTcB:443 ms | | |QTcF:412 ms | | |QRS Horizontal [place]:88 deg | | |QRS [place]:-25 deg | | |I-40 Horizontal [place]:53 deg | | |I-40 Front [place]:8 deg | | |T-40 Horizontal [place]: deg | | |T-40 Front [place]:178 deg | | |T Horizontal [place]:28 deg | | |T Wave [place]:14 deg | | |S-T Horizontal [place]:25 deg | | |S-T Front [place]:19 deg | | |Severity:- ABNORMAL ECG - | | |INTERP:SINUS RHYTHM | | |INTERP:RIGHT BUNDLE BRANCH BLOCK | | |Electronically signed by: LARRY IQBAL 06-19-2019 08:30:08 | | + + + + + + + + | Performing | Address | City/State/Zipcode | Phone Number | | Organization | | | | + + + + + | [facility] | [address] | [place] [address] | [phone] | + + + + + CBC [...] PROVIDE NCE | | | | by [facility] [address], | | [place]CRED | | | | [place] [address] | | HEART | | | |Performed by [facility] [address], [place] [address] | | MEDICAL | | | | [...] + + | [facility] | [address] | [place] [address] | | | [facility] | | [...] | | LABORATORY | | | | [facility] [address], | | [place] | | | | [place] [id number] | | | | + + + + + + + + | Specimen | + + | Blood specimen | | (specimen) | + + + + + + + | Performing | Address | City/State/Zipcode | Phone Number | | Organization | | | | + + + + + | [facility] | [address] | [place] [address] | | | [facility] | | | [...] - 1.030 | [facility] | | | Reva | | | SACRED | | | [...] MAGGI | | | | Performed by [facility] [address] | | [place] | | | | [address], [place] | | HEART | | | | [address] | | MEDICAL | | | | [...] + + + + + | MAGGI CATSANON | [address] | [place] [address] | | | [facility] | | [...] + + | Performing | Address | City/State/[facility] | Phone Number | [...] | | | | | | [facility] | | | | | [facility] | | | | | | [facility] | | | | | | B[facility]OD | | | | | | CENTER | | + + + + + + | Rh Type | Positive | | REFERENCE | | | | | | [facility] | | | | | | [facility] | | | | | | [facility] | | | | | | [facility]OD | | | | | | CENTER | | + + + + + + | Antibody | Negative | | REFERENCE | | | Screen | | | [facility] | | | | | | [place] [...] + + + | Specimen Expiration Date: [id number] | REFERENCE LAB | | | [facility] | | | [facility] | | | [facility] | + + + + + + + + | Performing | Address | City/State/Zipcode | Phone Number | | Organization | | | | + + + + + | REFERENCE LAB | [address] | [place] | [phone] | | [facility] | | | | | [facility] [...] | PROVIDENCE | | | | by [facility] [address], | | [place]CRED | | | | [place], [place] | | HEART | | | |Performed by [facility] [address] [place] [place] [address] | | MEDICAL | | | | [...] SACRED | [address] | [place] [address] | | | [facility] | | [...] | | | | | seconds.Performed by [facility] | | | | | | [address], | | | | | | [place] [address] | | | | + + + + + + + + | Specimen | + + | Blood specimen | | (specimen) | + + + + + + + | Performing | Address | City/State/Zipcode | Phone Number | | Organization | | | | + + + + + | [facility] | [address] | [place] [address] | | | [facility] | | [...] CENTER | | | | 3.5Performed by [facility] [address] | | LABORATORY | | | | [address], [place] | | [place] | | | | [id number] | | | | + + + + + + + + | Specimen | + + | Blood specimen | | (specimen) | + + + + + + + | Performing | Address | City/State/Zipcode | Phone Number | | Organization | | | | + + + + + | [facility] | [address] | [place] [address] | | | [facility] | | [...] | | | Venous | Performed by [facility] [address] | mmol/L | [address]CRED | | | | [address] [place] [place], [place] | | HEART | | | | [address] | | MEDICAL | | | | [...] + + | [facility] | [address] | [place] [address] | | | [facility] | | | | | SHO JEROINMO | | | | + + + [...] | PROVIDENCE | | | SERUM/PLASM | [facility] [address], | | SACRED | | | A | [place] [address] | | HEART | | | |Performed by [facility] [address], [place] [address] | | MEDICAL | | | | [...] SACRED | [address] | [place] [address] | | | [facility] | | [...] | | LABORATORY | | | | [facility] [address], | | [place] | | | | [place] [address] | | | | + + + + + + + + | Specimen | + + | Blood specimen | | (specimen) | + + + + + + + | Performing | Address | City/State/Zipcode | Phone Number | | Organization | | | | + + + + + | [facility] | [address] | [place] [address] | | | [facility] | | [...] +---------+--------+ | [place] | MEDICA | [id number] | 09/20/19 | [phone] | | Medica | | | [place] | | 18-Pre | 2 | | id | | | PLUS | | sent | | | | + +--------+ +--------+ +---------+--------+ | [employer] | IHS | [id number] | 03/21/19 | | | Indemn | [...] Person | Self | [birth year] | [address] | | rachelle Ring | al/Fam | | 1961 | [phone] | [place], | | | ryan | | | [address] (Home) | [place] [address] | + +--------+ +--------+ + + Advance Directives + + + + + | Type | Date Recorded | Patient | Explanation | | | | Manager Testing | | + + + + + | Power of | | | | | Bundle Packer | | | | + + + [...]
--- OUTSIDE RECORDS SUMMARY | ~2019-09-09 | XMS | Encounter Summary ---
Demographics + + + | Address | [address] | | | [place] [address] | + + + | Home Phone [...] Phone | + + +---------+ + | Teerssa Fortune | ECON | Unknown | + | + + +---------+ + | Jay Jay Edouardalberletitia | ECON | Unknown | + | + + +---------+ + | Teressa Edouardcharlene | ECON | Unknown | + | + + +---------+ + Care Team Providers + +------+ + | Care Tectonophysicist Name | Role | Phone | + +------+ + PCP | Unavailable | + +------+ + Encounter Details +--------+ + + + + | Date | Type | Department | Care Team | Description | +--------+ + + + + | 03/12/ | Hospital | [facility] | Conversion | Pain | | 2015 | Encounter | CONVERSION [address] | Transaction, | | | | | [address] | Provider Unknown | | | | | [place], [place] | [phone] | | | | | [address] | | | | | | [phone] | | | +--------+ + + + [...]
--- OUTSIDE RECORDS SUMMARY | ~2019-09-09 | XMS | Encounter Summary ---
Demographics + + + | Address | [address] | | | [place] [address] | + + + | Home Phone [...] Team Providers + +------+ + | Care Administrative Assistant Office Manager Name | Role | Phone | [...] + + | 07/06/ | Telephone | [place] | Tony Yuan, | Other (cancelling | | 2019 | | Orthopedics [address] | appointment ) | | | | [address] | [facility] [address] | | | | | [place], [place] | [place] [address] | | | | | [address] | [phone] | | | | | [phone] | | | +--------+ + + + [...]
--- OUTSIDE RECORDS SUMMARY | ~2019-09-09 | XMS | Encounter Summary ---
Demographics + + + | Address | [address] | | | [place] [address] | + + + | Home Phone [...] Team Providers + +------+ + | Care Active Directory Administrator Name | Role | Phone | [...] Provider Unknown | | | | | [phone] | [phone] | | | | | | | [...]
--- OUTSIDE RECORDS SUMMARY | ~2019-09-09 | XMS | Encounter Summary ---
Demographics + + + | Address | [address] | | | [place] [address] | + + + | Home Phone | | + + + | Preferred Language | Unknown | + + + | Marital Status | Single | + + + | Yazidism Affiliation [...] + +------+ + | Care Human Resources Coordinator Name | Role | Phone | [...]
--- OUTSIDE RECORDS SUMMARY | ~2019-09-09 | XMS | Encounter Summary ---
Demographics + + + | Address | [address] | | | [place] [address] | + + + | Home Phone [...] Team Providers + +------+ + | Care Service Specialist Name | Role | Phone | [...] | | | | [place], | [place], [place] | | | | | [place] [address] | [address] | | | | | [phone] | | | +--------+ + + + [...]
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
--- OUTSIDE RECORDS SUMMARY | ~2019-09-09 | XMS | Clinical Summary ---
Demographics + + + | Address | [address] | | | [place] [address] | + + + | Home Phone | | + + + | Preferred Language | Unknown | + + + | Marital Status | | + + + | Orthodox Affiliation | Unknown | + + + | Race | Unknown | + + + | Ethnic Group | Unknown | + + + Author + + + | Author | [facility] [employer] (Historical as of | | | 05-06-19) | + + + | Organization | [facility] [employer] (Historical as of | | | 05-06-19) | + + + | Address | Unknown | + + + | Phone | Unavailable | + + + Support + + + + + | Name | Relationship | Address | Phone | + + + + + | Jay Jay Fortune | ECON | [address] | | | | | [place] | | | | | [address] | | + + + + + | Teressa Fortune | ECON | [place] | | | | | [address] | | + + + + + Care Team Providers + +------+ + | Care Coater Operator Insulation Board Name | Role | Phone | + [...] | | [employer] | | 01/18/ | [id number] | | [id number]: Qty: 1 on | | | | | 2016 | / | | 10/11/2014 by Arlette, | | | | | | /[id number] | | Anthony HENRIQUEZ MD | | | | | | 21 | + +------+--------+ +--------+--------+--------+ | Algrft Dura Durgn Mtrx 3x3 | | Right: | [employer] | | 08/27/ | ID-[id number] | | Bx5 - [id number]: Qty: | | Brain | NEUROSCIENC | | 2016 | 5 / | | 1 on 05/28/2015 by Earl, | | | FRANCK - INNE | | | /[id number] | | Gloria Baumann MD | | | | | | 52 | + +------+--------+ +--------+--------+--------+ | Mesh Grid Hcd 11x7.5 | | Right: | [employer] - | | | 015-20 | | - - | | Brain | MEDT | | | - / | | [id number]: Qty: 1 on | | | | | | / | | 05/28/2015 by Gloria Elliott | | | | | | | | L, MD | | | | | | | + +------+--------+ +--------+--------+--------+ | Plate Dbl Y 3h 5mm - | | Right: | [employer] - | | | 015-23 | | [id number]: Qty: 2 on | | Brain | MEDT | | | 7 / | | 05/28/2015 by Gloria Elliott | | | | | | /[id number] | | L, MD | | | | | | 98 | + +------+--------+ +--------+--------+--------+ | Screw S/Tap 1.6x4.0 - | | Right: | [employer] - | | | [id number] | | [id number]: Qty: 14 on | | Brain | MEDT | | | 0 / / | | 05/28/2015 by Gloria Elliott | | | | | | | | L, MD | | | | | | | + +------+--------+ +--------+--------+--------+ | Plate Dogbone 8mm - | | Right: | [employer] - | | | 015-04 | | [id number]: Qty: 1 on | | Brain | MEDT | | | 2 / | | 05/28/2015 by Gloria Elliott | | | | | | /[id number] | | MD Ibis | | | | | | 58 | + +------+--------+ +--------+--------+--------+ | Screw S/Tap 1.6x4.0 - | | | [employer] - | | | [id number] | | [id number]: Qty: 8 on | | | MEDT | | | 0 | | 05/29/2015 by Gloria Elliott | | | | | | /[id number] | | MD Ibis | | | | | | 40 / | + +------+--------+ +--------+--------+--------+ | Algrft Dura Durgn Mtrx 3x3 | | | [employer] | | 08/20/ | ID-330 | | Bx5 - [id number]: Qty: | | | NEUROSCIENC | | 2016 | 5 | | 1 on 05/29/2015 by Earl, | | | FRANCK - MALIKA | | | /[id number] | | Gloria Baumann MD | | | | | | 5 | | | | | | | | /[id number] | | | | | | | [...] +------+-------+ + | MEDICAID | MEDICA | [id number] | | | [address] | | | [place] | | | | [place], [place] | | | [place] | | | | [address] | + +--------+ +------+-------+ + | [employer] | YELLOW | [id number] | | | | | PLANS | [...] | Self [birth year] Home: | [address] | | | al/Fam | | 1961 | [phone] | [place], | | | [place] | | | [address] | [place] [address] | + +--------+ +--------+ + +
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
[2019-09-09] MEDS ORDERED: ULTRAM50 MG PO (18:10)
== END 2019-09-09 18:10 | disposition home or self-care (01) ==
LOC: ED 17:37
DX: M54.5 Low back pain (principal); E11.9 Type 2 diabetes mellitus without complications; Z88.0 Allergy status to penicillin
CPT/HCPCS: 99283

== ENCOUNTER 2019-10-02 15:49 | Emergency (ER) | payer OTHER ==
[~2019-10-02] VITALS: Ht 177.8 cm; Wt 106.6 kg
--- OUTSIDE RECORDS SUMMARY | ~2019-10-02 | XMS | Encounter Summary ---
Demographics + + + | Address | [address] | | | [place] [address] | + + + | Home Phone | | + + + | Preferred Language | Unknown | + + + | Marital Status | Single | + + + | Holiness Affiliation | Unknown | + + + | Race | White | + + + | Ethnic Group | Not or | + + + Author + + + | Author | [facility] | + + + | Organization | [facility] | + + + | [...] Team Providers + +------+ + | Care Hat Blocking Machine Operator Name | Role | Phone | + +------+ + PCP | Unavailable | + +------+ + Encounter Details +--------+ + + + + | Date | Type | Department | Care Team | Description | +--------+ + + + + | 02/17/ | Results | [facility] | Wade Villalta MD | | | 2002 | Only | & Rehabilitation | [address] | | | | | [address] | [address] | | | | | Mailcode: PV430 | [place], [place] | | | | | [place] | [address] | | | | | [place], [place] | [phone] | | | | | [address] | | | | | | [phone] | | | +--------+ + + + [...] | + +--------+ + + + | X-RAY FLUOROSCOPY | Routin | 02/17/2003 | | Results for this | | <=1 HOUR | e | 10:00 AM | | procedure are in the | | | | PDT | | results section. | + +--------+ + + + documented in this encounter Results FLUOROSCOPY <=1 HOUR (02/17/2003 10:00 AM PDT) + + + + + + | Component | Value | Ref Range | Performed | Pathologist | | | | | At | Signature | + + + + + + | FLUOROSCOPY | Radiologist 1: TYLER, | | | | | <=1 HOUR | Judi SOSA IMPRESSION: | | | | | | FLUOROSCOPY SERVICES | | | | | | WERE PERFORMED UNDER THE | | | | | | DIRECTION OF | | | | | | THEORDERING PHYSICIAN. | | | | | | END OF IMPRESSION: | | | | | | | | | | | | | | | | | |END OF IMPRESSION: | | | | | | | | | | | | | | | | | | | | | | + + + + + + + + | Specimen | + + | | + + + +---------+ + + | Performing | Address | City/State/Zipcode | Phone Number | | Organization | | | | + +---------+ + + | [facility] DEPARTMENT OF | | | | | RADIOLOGY | | | | + +---------+ + + documented in this encounter Visit Diagnoses Not on filedocumented in this encounter"
--- OUTSIDE RECORDS SUMMARY | ~2019-10-02 | XMS | Encounter Summary ---
Demographics + + + | Address | [address] | | | [place] [address] | + + + | Home Phone | | + + + | Preferred Language | Unknown | + + + | Marital Status | Single | + + + | Scientology Affiliation | Unknown | + + + | Race | White | + + + | Ethnic Group | Not or | + + + Author + + + | Author | [facility] | + + + | Organization | [facility] | + + + | Address [...] Team Providers + +------+ + | Care Mold Maintenance Technician Name | Role | Phone | + +------+ + | Anny Ennis DO | PCP | Unavailable | + +------+ + Reason for Visit + + + | Reason | Comments | + + + | Radiology Results | CT 05/30/2010 no HCC | + + + Encounter Details +--------+ + + + + | Date | Type | Department | Care Team | Description | +--------+ + + + + | 06/12/ | Documentati | [facility] | Azeem Dietrich | Radiology Results | | 2009 | on | Center at [facility] [address] | ([place] 05/30/2010 no | | | | [address] | [address] [place], [place] | HCC) | | | | Mailcode: OCD | [address] | | | | | [facility] | [phone] | | | | | and Healing, | | | | | | [address] | | | | | | [place], [place] | | | | | | [address] | | | | | | [phone] | | | +--------+ + + + [...] No | | | Says he quit | | | | | drinking when he had | | | | | a variceal bleed | | | | | (10/2008) | + + +---------+ + + [...]
--- OUTSIDE RECORDS SUMMARY | ~2019-10-02 | XMS | Encounter Summary ---
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 1.778 m (5' 10") Component Value Date/Time POCGLU 177 (H) 06/18/2019 1715 POCGLU 204 (H) 06/18/2019 1243 POCGLU 191 (H) 05/29/2015 1527 POCGLU 146 (H) 10/11/2014 1948 No data found. d ocumented in this encounter Plan of Treatment +--------+---------+ + + + | Date | Type | Specialty | Care Team | Description | +--------+---------+ + + + | 10/16/ | Office | Orthopedic Surgery | Jose JRamirezmargret Helm, | | | 2019 | Visit | | [facility] [address] | | | | | | [facility] [address] | | | | | | [place] [address] | | | | | | [phone] | | | | | | | | +--------+---------+ + + + + + +--------+ + + | Name | Type | Priori | Associated Diagnoses | Date/Time | | | | ty | | | + + +--------+ + + | ED INFORMATION | BARON | Routin | | 06/18/2019 6:13 AM | | EXCHANGE | | e | | PDT | + + +--------+ + + | Extra Blood Bank | Blood Bank | Routin | | 06/19/2019 7:35 AM | | Tube | | e | | PDT | + + +--------+ + + + +------+--------+ + + | Name | Type | Priori | Associated Diagnoses | Order Schedule | | | | ty | | | + +------+--------+ + + | DME: Misc TLSO, | DME | Routin | Closed stable | DME 1 Time for 1 | | fitted with velcro | | e | burst fracture of | Occurrences starting | | straps to stabelize | | | second lumbar | 06/19/2019 until | | the L2 burst | | | vertebra, initial | 06/19/2019 | | fracture | | | encounter (HCC) | | + +------+--------+ + + documented as of this encounter Procedures + +--------+ + + + | Procedure Name | Priori | Date/Time | Associated Diagnosis | Comments | | | ty | | | | + +--------+ + + + | POC GLUCOSE | Routin | 06/23/2019 | | Results for this | | | e | 7:53 AM | | procedure are in the | | | | PDT | | results section. | + +--------+ + + + | POC GLUCOSE | Routin | 06/22/2019 | | Results for this | | | e | 8:59 PM | | procedure are in the | | | | PDT | | results section. | + +--------+ + + + | POC GLUCOSE | Routin | 06/22/2019 | | Results for this | | | e | 5:53 PM | | procedure are in the | | | | PDT | | results section. | + +--------+ + + + | POC GLUCOSE | Routin | 06/22/2019 | | Results for this | | | e | 12:53 PM | | procedure are in the | | | | PDT | | results section. | + +--------+ + + + | POC GLUCOSE | Routin | 06/22/2019 | | Results for this | | | e | 8:44 AM | | procedure are in the | | | | PDT | | results section. | + +--------+ + + + | POC GLUCOSE | Routin | 06/21/2019 | | Results for this | | | e | 9:28 PM | | procedure are in the | | | | PDT | | results section. | + +--------+ + + + | POC GLUCOSE | Routin | 06/21/2019 | | Results for this | | | e | 6:13 PM | | procedure are in the | | | | PDT | | results section. | + +--------+ + + + | POC GLUCOSE | Routin | 06/21/2019 | | Results for this | | | e | 12:23 PM | | procedure are in the | | | | PDT | | results section. | + +--------+ + + + | POC GLUCOSE | Routin | 06/21/2019 | | Results for this | | | e | 7:54 AM | | procedure are in the | | | | PDT | | results section. | + +--------+ + + + | POC GLUCOSE | Routin | 06/20/2019 | | Results for this | | | e | 9:59 PM | | procedure are in the | | | | PDT | | results section. | + +--------+ + + + | POC GLUCOSE | Routin | 06/20/2019 | | Results for this | | | e | 5:36 PM | | procedure are in the | | | | PDT | | results section. | + +--------+ + + + | XR LUMBAR SPINE 2 OR | [facility] | 06/20/2019 | | Results for this | | 3 VW | | 4:32 PM | | procedure are in the | | | | PDT | | results section. | + +--------+ + + + | POC GLUCOSE | Routin | 06/20/2019 | | Results for this | | | e | 12:14 PM | | procedure are in the | | | | PDT | | results section. | + +--------+ + + + | POC GLUCOSE | Routin | 06/20/2019 | | Results for this | | | e | 7:53 AM | | procedure are in the | | | | PDT | | results section. | + +--------+ + + + | POC GLUCOSE | Routin | 06/19/2019 | | Results for this | | | e | 9:17 PM | | procedure are in the | | | | PDT | | results section. | + +--------+ + + + | POC GLUCOSE | Routin | 06/19/2019 | | Results for this | | | e | 5:24 PM | | procedure are in the | | | | PDT | | results section. | + +--------+ + + + | POC GLUCOSE | Routin | 06/19/2019 | | Results for this | | | e | 1:02 PM | | procedure are in the | | | | PDT | | results section. | + +--------+ + + + | POC GLUCOSE | Routin | 06/19/2019 | | Results for this | | | e | 10:47 AM | | procedure are in the | | | | PDT | | results section. | + +--------+ + + + | FL C ARM | Routin | 06/19/2019 | | Results for this | | | e | 10:06 AM | | procedure are in the | | | | PDT | | results section. | + +--------+ + + + | XR FOREARM RIGHT 2 | Routin | 06/19/2019 | | Results for this | | VW | e | 10:06 AM | | procedure are in the | | | | PDT | | results section. | + +--------+ + + + | ORIF FOREARM | | 06/19/2019 | ulna fracture | | | | | 9:03 AM | | | | | | PDT | | | + +--------+ + + + +---+--------+ | | | | | Specia | | | l | | | Needs | | | SMALL | | | FRAG | | | SET. | | | RU | +---+--------+ + +--------+ +---+ + | ABO RH | Routin | 06/19/2019 | | Results for this | | | e | 7:35 AM | | procedure are in the | | | | PDT | | results section. | + +--------+ +---+ + | POC GLUCOSE | Routin | 06/19/2019 | | Results for this | | | e | 7:35 AM | | procedure are in the | | | | PDT | | results section. | + +--------+ +---+ + | ECG 12 LEAD | Routin | 06/19/2019 | | Results for this | | | e | 5:44 AM | | procedure are in the | | | | PDT | | results section. | + +--------+ +---+ + | CBC NO DIFFERENTIAL | Routin | 06/19/2019 | | Results for this | | | e | 4:26 AM | | procedure are in the | | | | PDT | | results section. | + +--------+ +---+ + | BASIC METABOLIC | Routin | 06/19/2019 | | Results for this | | PANEL | e | 4:26 AM | | procedure are in the | | | | PDT | | results section. | + +--------+ +---+ + | POC GLUCOSE | Routin | 06/18/2019 | | Results for this | | | e | 9:31 PM | | procedure are in the | | | | PDT | | results section. | + +--------+ +---+ + | POC GLUCOSE | Routin | 06/18/2019 | | Results for this | | | e | 5:15 PM | | procedure are in the | | | | PDT | | results section. | + +--------+ +---+ + | POC GLUCOSE | Routin | 06/18/2019 | | Results for this | | | e | 12:43 PM | | procedure are in the | | | | PDT | | results section. | + +--------+ +---+ + | URINALYSIS WITH | Routin | 06/18/2019 | | Results for this | | MICROSCOPIC WITH | e | 10:50 AM | | procedure are in the | | CULTURE IF INDICATED | | PDT | | results section. | + +--------+ +---+ + | XR FOOT RIGHT 3 + VW | STAT | 06/18/2019 | | Results for this | | | | 7:41 AM | | procedure are in the | | | | PDT | | results section. | + +--------+ +---+ + | XR CHEST AP PORTABLE | STAT | 06/18/2019 | | Results for this | | | | 7:41 AM | | procedure are in the | | | | PDT | | results section. | + +--------+ +---+ + | XR FOREARM RIGHT 2 | STAT | 06/18/2019 | | Results for this | | VW | | 7:39 AM | | procedure are in the | | | | PDT | | results section. | + +--------+ +---+ + | CT CHEST ABDOMEN | STAT | 06/18/2019 | | Results for this | | PELVIS W CONTRAST | | 7:05 AM | | procedure are in the | | | | PDT | | results section. | + +--------+ +---+ + | CT CERVICAL SPINE W | STAT | 06/18/2019 | | Results for this | | CONTRAST | | 6:58 AM | | procedure are in the | | | | PDT | | results section. | + +--------+ +---+ + | CT HEAD WO CONTRAST | STAT | 06/18/2019 | | Results for this | | | | 6:58 AM | | procedure are in the | | | | PDT | | results section. | + +--------+ +---+ + | TYPE AND SCREEN | STAT | 06/18/2019 | | Results for this | | | | 6:19 AM | | procedure are in the | | | | PDT | | results section. | + +--------+ +---+ + | EXTRA HOLD TUBE(S) | Routin | 06/18/2019 | | Results for this | | | e | 6:19 AM | | procedure are in the | | | | PDT | | results section. | + +--------+ +---+ + | PTT | STAT | 06/18/2019 | | Results for this | | | | 6:19 AM | | procedure are in the | | | | PDT | | results section. | + +--------+ +---+ + | PROTIME INR | STAT | 06/18/2019 | | Results for this | | | | 6:19 AM | | procedure are in the | | | | PDT | | results section. | + +--------+ +---+ + | CBC NO DIFFERENTIAL | STAT | 06/18/2019 | | Results for this | | | | 6:19 AM | | procedure are in the | | | | PDT | | results section. | + +--------+ +---+ + | LACTIC ACID | STAT | 06/18/2019 | | Results for this | | | | 6:19 AM | | procedure are in the | | | | PDT | | results section. | + +--------+ +---+ + | ALCOHOL | STAT | 06/18/2019 | | Results for this | | | | 6:19 AM | | procedure are in the | | | | PDT | | results section. | + +--------+ +---+ + | COMPREHENSIVE | STAT | 06/18/2019 | | Results for this | | METABOLIC PANEL | | 6:19 AM | | procedure are in the | | | | PDT | | results section. | + +--------+ +---+ + | ED INFORMATION | Routin | 06/18/2019 | | | | EXCHANGE | e | 6:13 AM | | | | | | PDT | | | + +--------+ +---+ + +---+--------+ | | | | | Proced | | | ure | | | Note - | | | Rosalio, | | | Lab In | | | | | | Hlseve | | | n - | | | 09/29/ | | | 2019 | | | 6:14 | | | AM PDT | | | | | | Format | | | ting | | | of | | | this | | | note | | | might | | | be | | | differ | | | ent | | | from | | | the | | | origin | | | al.COL | | | LECTIV | | | E?NOTI | | | FICATI | | | ON?09/ | | | 29/201 | | | 9 | | | 06:13? | | | WHITEO | | | [facility] | | | ADOUR, | | | | | | MAYNAR | | | D | | | J?MRN: | | | | | | [id number] | | | [id number] | | | riteri | | | a Met | | | Has | | | Guidel | | | inesSe | | | curity | | | and | | | Safety | | | Date | | | Locati | | | on | | | Type | | | Specif | | | ics | | | 12/20/ | | | 18 | | | 3:03 | | | PM [facility] | | [facility] | | | al | | | Elopem | | | ent | | | Other | | | | | | Detail | | | s: | | | PATIEN | | | T LWBS | | | | | | Securi | | | ty | | | Events | | | (18 | | | Mo.) | | | Count | | | Elopem | | | ent 1 | | | Total | | | 1 ED | | | Care | | | Guidel | | | inesTh | | | ere | | | are | | | curren | | | tly no | | | ED | | | Care | | | Guidel | | | saleem | | | for | | | this | | | patien | | | t. | | | Please | | | check | | | your | | | facili | | | ty's | | | medica | | | l | | | record | | | s | | | system | | | .Care | | | Histor | | | yMedic | | | al/Carline | | | [email or web address] | | | /2/19 | | | 12:00 | | | AM | | | [facility] | [facility] | | | Hospit | | | al?? | | | PATIEN | | | T IS A | | | | | | YELLOW | | | [facility] | | | MEMBER | | | .?? | | | PLEASE | | | REFER | | | | | | PATIEN | | | T TO | | | [facility]LLOW | | | [facility] | | | [facility] | | | FOR | | | NON | | | EMERGE | | | NT | | | MEDICA | | | L | | | NEEDS. | | | ?? | | | YELLOW | | | [facility] | | | [facility]IN[facility] | | | CAN | | | SEE | | | PATIEN | | | TS | | | SAME | | | DAY | | | FOR | | | APTS | | | IF | | | PATIEN | | | T | | | CALLS | | | FIRST | | | THING | | | IN THE | | | | | | MORNIN | | | G.Pres | | | cripti | | | on | | | Drug | | | Report | | | (12 | | | Mo.)PD | | | MP | | | query | | | found | | | no | | | report | | | .E.D. | | | Visit | | | Count | | | (12 | | | mo.)Fa | | | cility | | | | | | Visits | | | Low | | | Acuity | | | | | | Provid | | | ence | | | [facility] | [facility] | | | l | | | Center | | | 1 0 | | | [facility] [place] [facility] | | | [facility] | | | al 2 0 | | | Total | | | 3 0 | | | Note: | | | Visits | | | | | | indica | | | te | | | total | | | known | | | visits | | | . | | | Medica | | | id Low | | | | | | Acuity | | | Dx | | | are | | | the | | | number | | | of | | | primar | | | y | | | diagno | | | ses on | | | the | | | Medica | | | id's | | | Low | | | Acuity | | | dx | | | list. | | | | | | Recent | | | | | | Emerge | | | ncy | | | Depart | | | ment | | | Visit | | | [facility] | | | yDate | | | Facili | | | ty | | | City | | | State | | | Type | | | Diagno | | | ses or | | | Chief | | | | | | Compla | | | int | | | Sep | | | 29, | | | 2019 | | | [facility] | | [facility] ence | [facility] [place] | | | [place] | | | Emerge | | | ncy | | | Dec | | | 25, | | | 2018 | | | [facility] [facility] | [facility] | [place] | | | [place] | | | Emerge | | | ncy | | | | | | Muscle | | | spasm | | | of | | | back | | | Low | | | back | | | pain | | | | | | Allerg | | | y | | | status | | | to | | | penici | | | llin | | | Type | | | 2 | | | diabet | | | es | | | mellit | | | us | | | withou | | | t | | | compli | | | cation | | | s Dec | | | 20, | | | 2018 | | | [facility] [place] [facility] | [facility] | [place] | | | [place] | | | Emerge | | | ncy | | | | | | Alcoho | | | l | | | abuse | | | with | | | intoxi | | | cation | | | , | | | unspec | | | ified | | | | | | Recent | | | | | | Inpati | | | ent | | | Visit | | | [facility] | | | yNo | | | record | | | ed | | | inpati | | | ent | | | visits | | | . Care | | | | | | TeamPr | | | ovider | | | | | | Specia | | | lty | | | Phone | | | Fax | | | Servic | | | e | | | Dates | | | QUAEMP | | | TS, | | | MASON M, | | | MD | | | Family | | | | | | Medici | | | ne | | | Krystina 2, | | | 2019 | | | - | | | Curren | | | t | | | [place] | | | , Fito | | | E MD | | | Treatm | | | ent | | | Curren | | | t | | | [place] | | | , | | | Sonido | | | H DO | | | Other | | | | | | Curren | | | t | | | Collec | | | tive | | | Portal | | | This | | | patien | | | t has | | | regist | | | ered | | | at the | | | | | | Provid | | | ence | | | [facility] | | | | | | [facility] | | | l | | | Center | | | | | | Emerge | | | ncy | | | Depart | | | ment | | | For | | | more | | | inform | | | ation | | | visit: | | | | | | https: | | | //prov | | | .colle | | | ctivem | | | edical | | | .com/n | | | otify/ | | | [email or web address] | | | [email or web address] | | | [phone] | | | -[email or web address] | | | [id number] | | | [phone] | | | | | | PLEASE | | | NOTE: | | | 1. | | | Any | | | care | | | recomm | | | endati | | | ons | | | and | | | other | | | clinic | | | al | | | inform | | | ation | | | are | | | provid | | | ed as | | | guidel | | | saleem | | | or for | | | | | | histor | | | ical | | | purpos | | | es | | | only, | | | and | | | provid | | | ers | | | should | | | | | | exerci | | | se | | | their | | | own | | | clinic | | | al | | | judgme | | | nt | | | when | | | provid | | | ing | | | care. | | | 2. | | | You | | | may | | | only | | | use | | | this | | | inform | | | ation | | | for | | | purpos | | | es of | | | treatm | | | ent, | | | paymen | | | t or | | | health | | | care | | | operat | | | ions | | | activi | | | ties, | | | and | | | subjec | | | t to | | | the | | | limita | | | tions | | | of | | | applic | | | able | | | Collec | | | tive | | | Polici | | | es. | | | 3. | | | You | | | should | | | | | | consul | | | t | | | direct | | | ly | | | with | | | the | | | organi | | | zation | | | that | | | provid | | | ed a | | | care | | | guidel | | | ine or | | | other | | | | | | clinic | | | al | | | histor | | | y with | | | any | | | questi | | | ons | | | about | | | additi | | | onal | | | inform | | | ation | | | or | | | accura | | | cy or | | | comple | | | teness | | | of | | | inform | | | ation | | | provid | | | ed.? | | | 2019 | | | Collec | | | tive | | | Medica | | | l | | | Techn[employer] | | | logies | | | , Inc[employer] | | | - | | | [email or web address] | | | llecti | | | vemedi | | | [email or web address] | | | m | +---+--------+ documented in this encounter Results POC Glucose (06/23/2019 7:53 AM PDT) + + + + + + | Component | Value | Ref Range | Performed | Pathologist | | | | | At | Signature | + + + + + + | Glucose, | 139 (H)Comment: | 65 - 99 mg/dL | [facility] | | | POC | Performed by [facility] [address] | [address] | | | | [address] [place] | | HEART | | | | [address] | | MEDICAL | | | | | | CENTER | | | | | | LABORATORY | | | | | | [facility] | | + + + + + + + + | Specimen | + + | Blood specimen | | (specimen) | + + + + + + + | Performing | Address | City/State/Zipcode | Phone Number | | Organization | | | | + + + + + | [facility] | [address] | [place] [address] | | | [facility] | | | | | LABORATORY [facility] | | | | + + + + + POC Glucose (06/22/2019 8:59 PM PDT) + + + + + + | Component | Value | Ref Range | Performed | Pathologist | | | | | At | Signature | + + + + + + | Glucose, | 152 (H)Comment: | 65 - 99 mg/dL | [facility] | | | POC | Performed by [facility] [address] | [address] | | | | [address], [place] | | HEART | | | | | | MEDICAL | | | | | | CENTER | | | | | | LABORATORY | | | | | | [facility] | | + + + + + + + + | Specimen | + + | Blood specimen | | (specimen) | + + + + + + + | Performing | Address | City/State/Zipcode | Phone Number | | Organization | | | | + + + + + | [facility] | [address] | [place] | | | [facility] | | | | | LABORATORY [facility] | | | | + + + + + POC Glucose (06/22/2019 5:53 PM PDT) + + + + + + | Component | Value | Ref Range | Performed | Pathologist | | | | | At | Signature | + + + + + + | Glucose, | 170 (H)Comment: | 65 - 99 mg/dL | [facility] | | | POC | Performed by [facility] [address] | [address] | | | | [place] | | HEART | | | | [id number] | | MEDICAL | | | | | | CENTER | | | | | | LABORATORY | | | | | | [facility] | | + + + + + + + + | Specimen | + + | Blood specimen | | (specimen) | + + + + + + + | Performing | Address | City/State/Zipcode | Phone Number | | Organization | | | | + + + + + | [facility] | [address] | [place] [address] | | | [facility] | | | | | LABORATORY [facility] | | | | + + + + + POC Glucose (06/22/2019 12:53 PM PDT) + + + + + + | Component | Value | Ref Range | Performed | Pathologist | | | | | At | Signature | + + + + + + | Glucose, | 152 (H)Comment: | 65 - 99 mg/dL | [facility] | | | POC | Performed by [facility] [address] | [address] | | | | [address], [place] | | HEART | | | | | | MEDICAL | | | | | | CENTER | | | | | | LABORATORY | | | | | | [facility] | | + + + + + + + + | Specimen | + + | Blood specimen | | (specimen) | + + + + + + + | Performing | Address | City/State/Zipcode | Phone Number | | Organization | | | | + + + + + | [facility] | [address] | [place] [address] | | | [facility] | | | | | LABORATORY [facility] | | | | + + + + + POC Glucose (06/22/2019 8:44 AM PDT) + + + + + + | Component | Value | Ref Range | Performed | Pathologist | | | | | At | Signature | + + + + + + | Glucose, | 149 (H)Comment: | 65 - 99 mg/dL | [facility] | | | POC | Performed by [facility] [address] | [address] | | | | [address] [place] | | HEART | | | | [address] | | MEDICAL | | | | | | CENTER | | | | | | LABORATORY | | | | | | [facility] | | + + + + + + + + | Specimen | + + | Blood specimen | | (specimen) | + + + + + + + | Performing | Address | City/State/Zipcode | Phone Number | | Organization | | | | + + + + + | [facility] | [address] | [place] [address] | | | [facility] | | | | | LABORATORY [facility] | | | | + + + + + POC Glucose (06/21/2019 9:28 PM PDT) + + + + + + | Component | Value | Ref Range | Performed | Pathologist | | | | | At | Signature | + + + + + + | Glucose, | 184 (H)Comment: | 65 - 99 mg/dL | [facility] | | | POC | Performed by [facility] [address] | [address] | | | | [address], [place] | | HEART | | | | | | MEDICAL | | | | | | CENTER | | | | | | LABORATORY | | | | | | [facility] | | + + + + + + + + | Specimen | + + | Blood specimen | | (specimen) | + + + + + + + | Performing | Address | City/State/Zipcode | Phone Number | | Organization | | | | + + + + + | [facility] | [address] | [place] [address] | | | [facility] | | | | | LABORATORY [facility] | | | | + + + + + POC Glucose (06/21/2019 6:13 PM PDT) + + + + + + | Component | Value | Ref Range | Performed | Pathologist | | | | | At | Signature | + + + + + + | Glucose, | 159 (H)Comment: | 65 - 99 mg/dL | [facility] | | | POC | Performed by [facility] [address] | | [address] | | | | [address] [place] | | HEART | | | | [address] | | MEDICAL | | | | | | CENTER | | | | | | LABORATORY | | | | | | [facility] | | + + + + + + + + | Specimen | + + | Blood specimen | | (specimen) | + + + + + + + | Performing | Address | City/State/Zipcode | Phone Number | | Organization | | | | + + + + + | [facility] | [address] | [place] [address] | | | [facility] | | | | | LABORATORY [facility] | | | | + + + + + POC Glucose (06/21/2019 12:23 PM PDT) + + + + + + | Component | Value | Ref Range | Performed | Pathologist | | | | | At | Signature | + + + + + + | Glucose, | 156 (H)Comment: | 65 - 99 mg/dL | [facility] | | | POC | Performed by [facility] [address] | [address] | | | | [address], [place] | | HEART | | | | | | MEDICAL | | | | | | CENTER | | | | | | LABORATORY | | | | | | [facility] | | + + + + + + + + | Specimen | + + | Blood specimen | | (specimen) | + + + + + + + | Performing | Address | City/State/Zipcode | Phone Number | | Organization | | | | + + + + + | [facility] | [address] | [place] [address] | | | [facility] | | | | | LABORATORY [facility] | | | | + + + + + POC Glucose (06/21/2019 7:54 AM PDT) + + + + + + | Component | Value | Ref Range | Performed | Pathologist | | | | | At | Signature | + + + + + + | Glucose, | 157 (H)Comment: | 65 - 99 mg/dL | [place] | | | POC | Performed by [facility] [address] | | SACRED | | | | [address] [place] | | HEART | | | | [id number] | | MEDICAL | | | | | | CENTER | | | | | | LABORATORY | | | | | | [facility] | | + + + + + + + + | Specimen | + + | Blood specimen | | (specimen) | + + + + + + + | Performing | Address | City/State/Zipcode | Phone Number | | Organization | | | | + + + + + | [facility] | [address] | [place] [address] | | | [facility] | | | | | LABORATORY [facility] | | | | + + + + + POC Glucose (06/20/2019 9:59 PM PDT) + + + + + + | Component | Value | Ref Range | Performed | Pathologist | | | | | At | Signature | + + + + + + | Glucose, | 166 (H)Comment: | 65 - 99 mg/dL | [place] | | | POC | Performed by [facility] [address] | | [address] | | | | [address], [place] | | HEART | | | | | | MEDICAL | | | | | | CENTER | | | | | | LABORATORY | | | | | | [facility] | | + + + + + + + + | Specimen | + + | Blood specimen | | (specimen) | + + + + + + + | Performing | Address | City/State/Zipcode | Phone Number | | Organization | | | | + + + + + | [facility] | [address] | [place] [address] | | | [facility] | | | | | LABORATORY [facility] | | | | + + + + + POC Glucose (06/20/2019 5:36 PM PDT) + + + + + + | Component | Value | Ref Range | Performed | Pathologist | | | | | At | Signature | + + + + + + | Glucose, | 166 (H)Comment: | 65 - 99 mg/dL | [place] | | | POC | Performed by [facility] [address] | | SACRED | | | | [place] | | HEART | | | | [id number] | | MEDICAL | | | | | | CENTER | | | | | | LABORATORY | | | | | | [facility] | | + + + + + + + + | Specimen | + + | Blood specimen | | (specimen) | + + + + + + + | Performing | Address | City/State/Zipcode | Phone Number | | Organization | | | | + + + + + | [facility] | [address] | [place] [address] | | | [facility] | | | | | LABORATORY [facility] | | | | + + + + + XR Lumbar Spine 2 or 3 Vw (06/20/2019 4:32 PM PDT) + + | Specimen | + + | | + + + + + | Narrative | Performed At | + + + | LUMBAR SPINE TWO VIEWS CLINICAL INFORMATION: L2 burst | [facility] | | fracture. Post brace placement. COMPARISON: Spine reformations | | | from CT 06/18/2019 FINDINGS/IMPRESSION: Alignment remains normal | | | on lateral supine and upright radiographs L2 burst fracture with | | | approximately 50% anterior and 20% posterior vertebral body height | | | loss remains unchanged with mild retropulsion of the posterior | | | cortex. No new fractures. There is mild L5-S1 disc degeneration | | | and mild to moderate lower lumbar facet arthropathy. Signed | | | by: Judi Jones, Ras Navarrete Date/Time: 06/20/2019 4:40 PM | | + + + + + | Procedure Note | + + | Marlon Santamaria Results In - 06/20/2019 4:43 PM PDT | | LUMBAR SPINE TWO VIEWS | | | | CLINICAL INFORMATION: | | L2 burst fracture. Post brace placement. | | | | COMPARISON: | | Spine reformations from CT 06/18/2019 | | | | FINDINGS/IMPRESSION: | | Alignment remains normal on lateral supine and upright radiographs | | | | L2 burst fracture with approximately 50% anterior and 20% posterior | | vertebral body height loss remains unchanged with mild retropulsion | | of the posterior cortex. No new fractures. | | | | There is mild L5-S1 disc degeneration and mild to moderate lower | | lumbar facet arthropathy. | | | | | | | | Signed by: Judi Jones Chris | | Sign Date/Time: 06/20/2019 4:40 PM | + + + +---------+ + + | Performing | Address |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 | | Time | | | [facility] | | | | | | HEART | | | | | | MEDICAL | | | | | | CENTER | | | | | | LABORATORY | | | | | | [facility] | | + + + + + + | INR | 1.1Comment: Usual oral | 0.9 - 1.1 | [facility] | | | | anticoagulant range: 2.0 | | [facility] | | | | to 3.0 High level | | HEART | | | | oral anticoagulant | | MEDICAL | | | | range: 2.5 to | | CENTER | | | | 3.5Performed by [facility] [address] | | LABORATORY | | | | [address] [place] | | [place] | | | | [id number] | | | | + + + + + + + + | Specimen | + + | Blood specimen | | (specimen) | + + + + + + + | Performing | Address | City/State/Zipcode | Phone Number | | Organization | | | | + + + + + | [facility] | [address] | [place] [address] | | | [facility] | | | | | LABORATORY [place] | | | | + + + + + Comprehensive Metabolic Panel (06/18/2019 6:19 AM PDT) + + + + + + | Component | Value | Ref Range | Performed | Pathologist | | | | | At | Signature | + + + + + + | Na | 140 | 135 - 145 | [facility] | | | | | mmol/L | [facility] | | | | | | HEART | | | | | | MEDICAL | | | | | | CENTER | | | | | | LABORATORY | | | | | | [place] | | + + + + + + | K | 3.9 | 3.5 - 5.0 | [facility] | | | | | mmol/L | [facility] | | | | | | HEART | | | | | | MEDICAL | | | | | | CENTER | | | | | | LABORATORY | | | | | | [facility] | | + + + + + + | Cl | 107 | 99 - 109 mmol/L | [facility] | | | | | | [facility] | | | | | | HEART | | | | | | MEDICAL | | | | | | CENTER | | | | | | LABORATORY | | | | | | [facility] | | + + + + + + | CO2 | 23 | 21 - 28 mmol/L | [facility] | | | | | | [facility] | | | | | | HEART | | | | | | MEDICAL | | | | | | CENTER | | | | | | LABORATORY | | | | | | [facility] | | + + + + + + | Calcium | 8.9 | 8.5 - 10.2 | [facility] | | | | | mg/dL | [facility] | | | | | | HEART | | | | | | MEDICAL | | | | | | CENTER | | | | | | LABORATORY | | | | | | [facility] | | + + + + + + | Anion Gap | 10 | 5 - 16 mmol/L | [facility] | | | | | | [facility] | | | | | | HEART | | | | | | MEDICAL | | | | | | CENTER | | | | | | LABORATORY | | | | | | [facility] | | + + + + + + | Albumin | 3.8 | 3.5 - 5.0 g/dL | [facility] | | | | | | [facility] | | | | | | HEART | | | | | | MEDICAL | | | | | | CENTER | | | | | | LABORATORY | | | | | | [facility] | | + + + + + + | BUN | 7 (L) | 8 - 25 mg/dL | [facility] | | | | | | [facility] | | | | | | HEART | | | | | | MEDICAL | | | | | | CENTER | | | | | | LABORATORY | | | | | | [facility] | | + + + + + + | Creatinine | 0.93 | 0.70 - 1.30 | [facility] | | | | | mg/dL | [facility] | | | | | | HEART | | | | | | MEDICAL | | | | | | CENTER | | | | | | LABORATORY | | | | | | [facility] | | + + + + + + | Glucose | 247 (H) | 65 - 99 mg/dL | [facility] | | | | | | [facility] | | | | | | HEART | | | | | | MEDICAL | | | | | | CENTER | | | | | | LABORATORY | | | | | | [facility] | | + + + + + + | Total | 6.8 | 6.1 - 8.4 g/dL | [facility] | | | Protein | | | [facility] | | | | | | HEART | | | | | | MEDICAL | | | | | | CENTER | | | | | | LABORATORY | | | | | | [facility] | | + + + + + + | Alkaline | 148 (H) | 35 - 115 U/L | [facility] | | | Phosphatase | | | [facility] | | | | | | HEART | | | | | | MEDICAL | | | | | | CENTER | | | | | | LABORATORY | | | | | | [facility] | | + + + + + + | ALT | 44 | 10 - 65 U/L | [facility] | | | | | | [facility] | | | | | | HEART | | | | | | MEDICAL | | | | | | CENTER | | | | | | LABORATORY | | | | | | [facility] | | + + + + + + | AST | 77 (H) | 10 - 45 U/L | [facility] | | | | | | [facility] | | | | | | HEART | | | | | | MEDICAL | | | | | | CENTER | | | | | | LABORATORY | | | | | | [facility] | | + + + + + + | Bilirubin | 0.3 | 0.1 - 1.5 mg/dL | [facility] | | | Total | | | [facility] | | | | | | HEART | | | | | | MEDICAL | | | | | | CENTER | | | | | | LABORATORY | | | | | | [facility] | | + + + + + + | Estimated | 90Comment: eGFR<60 | >=90 | [facility] | | | GFR | consistent with impaired | mL/min/1.73m2 | [facility] | | | | kidney function.For | | HEART | | | | [place], | | MEDICAL | | | | multiply the calculated | | CENTER | | | | GFR by 1.210Performed by | | LABORATORY | | | | [facility] [address], | | [place] | | | | [place] [phone] | | | | + + + + + + + + | Specimen | + + | Blood specimen | | (specimen) | + + + + + + + | Performing | Address | City/State/Zipcode | Phone Number | | Organization | | | | + + + + + | [facility] | [address] | [place] [address] | | | [facility] | | | | | LABORATORY [facility] | | | | + + + + + CBC no Differential (06/18/2019 6:19 AM PDT) + + + +-------- -----+ + | Component | Value | Ref Range | Perform ed | Pathologist | | | | | At | Signature | + + + +-------- -----+ + | WBC | 18.70 (H) | 3.80 - 11.00 | [facility] | | | | | K/uL | [facility] | | | | | | HEART | | | | | | MEDICAL | | | | | | CENTER | | | | | | LABORAT ORY | | | | | | [facility] | | + + + +-------- -----+ + | RBC | 3.80 (L) | 4.20 - 5.70 | [facility] | | | | | M/uL | [facility] | | | | | | HEART | | | | | | MEDICAL | | | | | | CENTER | | | | | | LABORAT ORY | | | | | | [facility] | | + + + +-------- -----+ + | Hemoglobin | 11.3 (L) | 13.2 - 17.0 | [facility] | | | | | g/dL | [facility] | | | | | | HEART | | | | | | MEDICAL | | | | | | CENTER | | | | | | LABORAT ORY | | | | | | [facility] | | + + + +-------- -----+ + | Hct | 35.7 (L) | 39.0 - 50.0 % | [facility] | | | | | | [facility] | | | | | | HEART | | | | | | MEDICAL | | | | | | CENTER | | | | | | LABORAT ORY | | | | | | [facility] | | + + + +-------- -----+ + | MCV | 93.9 | 80.0 - 100.0 fL | [facility] | | | | | | [facility] | | | | | | HEART | | | | | | MEDICAL | | | | | | CENTER | | | | | | LABORAT ORY | | | | | | [facility] | | + + + +-------- -----+ + | MCH | 29.7 | 27.0 - 34.0 pg | [facility] | | | | | | [facility] | | | | | | HEART | | | | | | MEDICAL | | | | | | CENTER | | | | | | LABORAT ORY | | | | | | [facility] | | + + + +-------- -----+ + | MCHC | 31.7 (L) | 32.0 - 35.5 | [facility] | | | | | g/dL | [facility] | | | | | | HEART | | | | | | MEDICAL | | | | | | CENTER | | | | | | LABORAT ORY | | | | | | [facility] | | + + + +-------- -----+ + | RDW-CV | 14.3 | 11.0 - 15.5 % | [facility] | | | | | | [facility] | | | | | | HEART | | | | | | MEDICAL | | | | | | CENTER | | | | | | LABORAT ORY | | | | | | [facility] | | + + + +-------- -----+ + | Platelet | 216 | 150 - 400 K/uL | [facility] | | | Count | | | [facility] | | | | | | HEART | | | | | | MEDICAL | | | | | | CENTER | | | | | | LABORAT ORY | | | | | | [facility] | | + + + +-------- -----+ + | MPV | 10.1Comment: Performed | 9.3 - 12.7 fL | [facility] | | | | by [facility] [address], | | SACRED | | | | [place] [address] | | HEART | | | |Performed by [facility] [address], [place] [address] | | MEDICAL | | | | | | CENTER | | | | | | LABORAT ORY | | | | | | C[facility]ER | | + + + +-------- -----+ + + + | Specimen | + + | Blood specimen | | (specimen) | + + + + + + + | Performing | Address | City/State/Zipcode | Phone Number | | Organization | | | | + + + + + | [facility] | [address] | [place] [address] | | | [facility] | | | | | LABORATORY [facility] | | | | + + + + + documented in this encounter Visit Diagnoses Not on filedocumented in this encounter Administered Medications + +--------+ + +------+------+ | Medication Order | MAR | Action | Dose | Rate | Site | | | Action | Date | | | | + +--------+ + +------+------+ | acetaminophen (TYLENOL) tablet | Given | 06/23/20 | 1,000 mg | | | | 1,000 mg 1,000 mg, Oral, EVERY 8 | | 19 6:03 | | | | | HOURS (3 times per day), First | | AM PDT | | | | | dose on 06/19/19 at 1400, | | | | | | | Start 8 hours after pre-op dose., | | | | | | | Post-op/Phase II | | | | | | + +--------+ + +------+------+ +-------+ + +---+---+ | Given | 06/22/20 | 1,000 mg | | | | | 19 9:00 | | | | | | PM PDT | | | | +-------+ + +---+---+ | Given | 06/22/20 | 1,000 mg | | | | | 19 4:10 | | | | | | PM PDT | | | | +-------+ + +---+---+ +---+---+ | | | +---+---+ + +-------+ +--------+---+---+ | acetaminophen (TYLENOL) tablet | Given | 06/21/20 | 650 mg | | | | 650 mg 650 mg, Oral, EVERY 4 | | 19 11:01 | | | | | HOURS PRN, Pain, Starting Sun | | AM PDT | | | | | 06/18/19 at 0908 | | | | | | + +-------+ +--------+---+---+ +---+---+ | | | +---+---+ + +-------+ +--------+---+ + | bacitracin 50,000 Units, | Given | 06/19/20 | 1,012 | | Surgical | | gentamicin 80 mg in sodium | | 19 9:40 | mLs | | Site | | chloride for irrigation 0.9% | | AM PDT | | | | | 1,000 mL OpTesia mixture PRN, | | | | | | | Starting 06/19/19 at 0940, | | | | | | | Intra-op | | | | | | + +-------+ +--------+---+ + +---+---+ | | | +---+---+ + +---------+ +---+---+---+ | balanced electrolytes in water | New Bag | 06/19/20 | | | | | (PLASMALYTE-148/NORMOSOL-R) | | 19 10:26 | | | | | infusion at 10-100 mL/hr, | | AM PDT | | | | | Intravenous, CONTINUOUS, Starting | | | | | | | 06/19/19 at 0745, TKO. Use | | | | | | | this instead of LR if both are | | | | | | | ordered., Pre-op | | | | | | + +---------+ +---+---+---+ + + +---+ +---+ | Continued by Anesthesia | 06/19/20 | | | | | | 19 9:02 | | | | | | AM PDT | | | | + + +---+ +---+ | New Bag | 06/19/20 | | 10 mL/hr | | | | 19 7:30 | | | | | | AM PDT | | | | + + +---+ +---+ + +---+ | | | + +---+ | dextrose 10% (D10W) infusion | | | at 50 mL/hr, Intravenous, | | | CONTINUOUS PRN, hypoglycemia, | | | Starting 06/18/19 at 0908, | | | Start infusion if unable to | | | maintain blood glucose greater | | | than 70 mg/dL after two rounds of | | | hypoglycemia treatment. Recheck | | | blood glucose 30 minutes after | | | starting D10W then at least | | | hourly and PRN until it is | | | discontinued. Call provider to | | | discuss parameters for D10W | | | discontinuation., | | + +---+ | | | + +---+ + +---------+ +---+-------+---+ | dextrose 5% and sodium chloride | New Bag | 06/19/20 | | 100 | | | 0.9% with KCl 20 mEq/L (D5 NS + | | 19 6:11 | | mL/hr | | | KCL 20) infusion at 100 mL/hr, | | AM PDT | | | | | Intravenous, CONTINUOUS, Starting | | | | | | | 06/18/19 at 0930 | | | | | | + +---------+ +---+-------+---+ +---------+ +---+-------+---+ | New Bag | 06/18/20 | | 100 | | | | 19 9:32 | | mL/hr | | | | PM PDT | | | | +---------+ +---+-------+---+ | New Bag | 06/18/20 | | 100 | | | | 19 11:00 | | mL/hr | | | | AM PDT | | | | +---------+ +---+-------+---+ + +---+ | | | + +---+ | dextrose 50% injection 12.5-25 | | | g 12.5-25 g, Intravenous, PRN, | | | Low Blood Sugar, Starting Sun | | | 06/18/19 at 0908, For blood | | | glucose 50-69 mg/dl - give 12.5 g | | | For blood glucose less than 50 | | | mg/dl - give 25 g, | | + +---+ | | | + +---+ + +-------+ +--------+---+---+ | docusate sodium (COLACE) | Given | 06/21/20 | 100 mg | | | | capsule 100 mg 100 mg, Oral, 2 | | 19 1:56 | | | | | TIMES DAILY PRN, Constipation, | | PM PDT | | | | | Starting 06/18/19 at 0908, | | | | | | | First line agent for | | | | | | | constipation, | | | | | | + +-------+ +--------+---+---+ +-------+ +--------+---+---+ | Given | 06/20/20 | 100 mg | | | | | 19 2:27 | | | | | | PM PDT | | | | +-------+ +--------+---+---+ | Given | 06/19/20 | 100 mg | | | | | 19 10:42 | | | | | | PM PDT | | | | +-------+ +--------+---+---+ +---+---+ | | | +---+---+ + +-------+ +-------+---+ + | enoxaparin (LOVENOX) 40 mg/0.4 | Given | 06/23/20 | 40 mg | | Abdomen- | | mL injection 40 mg 40 mg, | | 19 8:57 | | | LUQ | | Subcutaneous, EVERY 24 HOURS | | AM PDT | | | | | (Daily), First dose on Sun | | | | | | | 06/18/19 at 0930 | | | | | | + +-------+ +-------+---+ + +-------+ +-------+---+ + | Given | 06/22/20 | 40 mg | | Abdomen- | | | 19 9:41 | | | LLQ | | | AM PDT | | | | +-------+ +-------+---+ + | Given | 06/21/20 | 40 mg | | Abdomen- | | | 19 8:16 | | | LLQ | | | AM PDT | | | | +-------+ +-------+---+ + +---+---+ | | | +---+---+ + +-------+ +-------+---+---+ | famotidine (PEPCID) tablet 20 | Given | 06/23/20 | 20 mg | | | | mg 20 mg, Oral, 2 TIMES DAILY, | | 19 8:56 | | | | | First dose on 06/20/19 at 2100 | | AM PDT | | | | + +-------+ +-------+---+---+ +-------+ +-------+---+---+ | Given | 06/22/20 | 20 mg | | | | | 19 9:00 | | | | | | PM PDT | | | | +-------+ +-------+---+---+ | Given | 06/22/20 | 20 mg | | | | | 19 9:42 | | | | | | AM PDT | | | | +-------+ +-------+---+---+ +---+---+ | | | +---+---+ + +-------+ +------+---+---+ | HYDROmorphone (DILAUDID) | Given | 06/19/20 | 1 mg | | | | injection 0.25-1 mg 0.25-1 mg, | | 19 6:09 | | | | | Intravenous, EVERY 2 HOURS PRN, | | AM PDT | | | | | Pain, Starting 06/18/19 at | | | | | | | 0908, Slow IV push, not faster | | | | | | | than 0.3 mg/minute. If | | | | | | | ineffective or not tolerated and | | | | | | | unable to take oral opioid - | | | | | | | contact ordering provider, | | | | | | + +-------+ +------+---+---+ +-------+ +------+---+---+ | Given | 06/19/20 | 1 mg | | | | | 19 3:16 | | | | | | AM PDT | | | | +-------+ +------+---+---+ | Given | 06/18/20 | 1 mg | | | | | 19 11:53 | | | | | | PM PDT | | | | +-------+ +------+---+---+ +---+---+ | | | +---+---+ + +-------+ +---------+---+ + | insulin lispro (humaLOG) | Given | 06/22/20 | 1 Units | | Abdomen- | | injection (vial) 0-6 Units 0-6 | | 19 6:01 | | | LLQ | | Units, Subcutaneous, 4 TIMES | | PM PDT | | | | | DAILY WITH MEALS & NIGHTLY, First | | | | | | | dose on 06/18/19 at 1200, | | | | | | | CORRECTION SCALE: Blood Glucose | | | | | | | (BG) < 150: None BG | | | | | | | 150-200: DAY: 1 units. NIGHT: 0 | | | | | | | units BG 201-250: DAY: 2 | | | | | | | units. NIGHT: 1 units BG | | | | | | | 251-300: DAY: 3 units. NIGHT: 2 | | | | | | | units BG 301-350: DAY: 4 units. | | | | | | | NIGHT: 3 units BG 351-400: | | | | | | | DAY: 5 units. NIGHT: 4 units | | | | | | | BG > 400 : DAY: 6 units. | | | | | | | NIGHT: 5 units | | | | | | | AND CALL PROVIDER Use DAY | | | | | | | DOSE for doses scheduled: | | | | | | | AC, NPO, Daytime 9451-1612 Use | | | | | | | NIGHT DOSE for doses scheduled: | | | | | | | HS, 3AM, Nighttime 7170-2379 | | | | | | | If the BG is not checked before | | | | | | | the patient starts eating, do not | | | | | | | give correction insulin. If HS | | | | | | | insulin given, check blood | | | | | | | glucose at 3AM. Only for use with | | | | | | | U-100 insulin syringe., | | | | | | + +-------+ +---------+---+ + +-------+ +---------+---+ + | Given | 06/22/20 | 1 Units | | Leg-Righ | | | 19 1:15 | | | t Upper | | | PM PDT | | | | +-------+ +---------+---+ + | Given | 06/21/20 | 1 Units | | Abdomen- | | | 19 6:15 | | | LLQ | | | PM PDT | | | | +-------+ +---------+---+ + +---+---+ | | | +---+---+ + +-------+ +--------+---+---+ | magnesium hydroxide (MILK OF | Given | 06/22/20 | 30 mLs | | | | MAGNESIA) 400 mg/5 mL suspension | | 19 9:01 | | | | | 30 mL 30 mL, Oral, NIGHTLY, | | PM PDT | | | | | First dose (after last | | | | | | | modification) on [facility] 06/22/19 at | | | | | | | 2100, Until patient has a BM. | | | | | | | Then may switch to PRN, | | | | | | | Post-op/Phase II | | | | | | + +-------+ +--------+---+---+ +---+---+ | | | +---+---+ + +-------+ +------+---+---+ | melatonin tablet 3 mg 3 mg, | Given | 06/23/20 | 3 mg | | | | Oral, NIGHTLY PRN, Insomnia, | | 19 12:03 | | | | | Starting 06/18/19 at 0908 | | AM PDT | | | | + +-------+ +------+---+---+ +-------+ +------+---+---+ | Given | 06/20/20 | 3 mg | | | | | 19 10:04 | | | | | | PM PDT | | | | +-------+ +------+---+---+ | Given | 06/20/20 | 3 mg | | | | | 19 2:56 | | | | | | AM PDT | | | | +-------+ +------+---+---+ +---+---+ | | | +---+---+ + +-------+ +------+---+---+ | ondansetron (ZOFRAN ODT) | Given | 06/20/20 | 4 mg | | | | disintegrating tablet 4 mg 4 mg, | | 19 10:04 | | | | | Oral, EVERY 6 HOURS PRN, Nausea, | | PM PDT | | | | | Vomiting, Starting 06/19/19 | | | | | | | at 1229, First line agent, | | | | | | | Post-op/Phase II | | | | | | + +-------+ +------+---+---+ +---+---+ | | | +---+---+ + +-------+ +------+---+---+ | ondansetron (ZOFRAN) injection | Given | 06/21/20 | 4 mg | | | | 4 mg 4 mg, Intravenous, EVERY 6 | | 19 1:19 | | | | | HOURS PRN, Nausea, Vomiting, | | PM PDT | | | | | Starting 06/18/19 at 0908, | | | | | | | First line agent Use PO option | | | | | | | unless NPO status or unable to | | | | | | | tolerate., | | | | | | + +-------+ +------+---+---+ +---+---+ | | | +---+---+ + +-------+ +-------+---+---+ | oxyCODONE (ROXICODONE) tablet | Given | 06/23/20 | 15 mg | | | | 5-20 mg 5-20 mg, Oral, EVERY 3 | | 19 8:57 | | | | | HOURS PRN, Pain, Starting Mon | | AM PDT | | | | | 06/19/19 at 1229, First dose must | | | | | | | be the lowest dose, can titrate | | | | | | | to effective dose by repeat of | | | | | | | lowest dose every 60 minutes prn | | | | | | | pain, may not exceed maximum dose | | | | | | | ordered per interval. Use Pasero | | | | | | | Sedation Scale., Post-op/Phase | | | | | | | II | | | | | | + +-------+ +-------+---+---+ +-------+ +-------+---+---+ | Given | 06/23/20 | 15 mg | | | | | 19 6:03 | | | | | | AM PDT | | | | +-------+ +-------+---+---+ | Given | 06/23/20 | 15 mg | | | | | 19 12:03 | | | | | | AM PDT | | | | +-------+ +-------+---+---+ +---+---+ | | | +---+---+ + +-------+ +------+---+---+ | polyethylene glycol (MIRALAX) | Given | 06/23/20 | 17 g | | | | powder 17 g 17 g, Oral, DAILY, | | 19 8:57 | | | | | First dose (after last | | AM PDT | | | | | modification) on [facility] 06/22/19 at | | | | | | | 1130, Daily until patient has a | | | | | | | BM. Then may switch to PRN, | | | | | | + +-------+ +------+---+---+ +-------+ +------+---+---+ | Given | 06/22/20 | 17 g | | | | | 19 11:45 | | | | | | AM PDT | | | | +-------+ +------+---+---+ +---+---+ | | | +---+---+ + +-------+ +--------+---+---+ | senna (SENOKOT) tablet 8.6 mg | Given | 06/23/20 | 8.6 mg | | | | 8.6 mg, Oral, 2 TIMES DAILY, | | 19 8:56 | | | | | First dose (after last | | AM PDT | | | | | modification) on [facility] 06/22/19 at | | | | | | | 2100, If docusate ineffective or | | | | | | | not ordered, | | | | | | + +-------+ +--------+---+---+ +-------+ +--------+---+---+ | Given | 06/22/20 | 8.6 mg | | | | | 19 9:00 | | | | | | PM PDT | | | | +-------+ +--------+---+---+ +---+---+ | | | +---+---+ documented in this encounter
--- OUTSIDE RECORDS SUMMARY | ~2019-10-02 | XMS | Encounter Summary ---
Demographics + + + | Address | [address] | | | [place] [address] | + + + | Home Phone | | + + + | Preferred Language | Unknown | + + + | Marital Status | | + + + | Sabianism Affiliation | Unknown | + + + | Race | Unknown | + + + | Ethnic Group | Unknown | + + + Author + + + | Author | [facility] | | | and [place] | + + + | Organization | [facility] | | | and [place] | + + + | Address | Unknown | + + + | Phone | Unavailable | + + + Support + + +---------+ + | Name | Relationship | Address | Phone | + + +---------+ + | Teressa Mcguire | ECON | Unknown | + | + + +---------+ + | Jay Jay Mcguire | ECON | Unknown | + | + + +---------+ + | Teressa Mcguire | ECON | Unknown | + | + + +---------+ + Care Team Providers + +------+ + | Care French Polisher Name | Role | Phone | + +------+ + PCP | Unavailable | + +------+ + Encounter Details +--------+ + + + + | Date | Type | Department | Care Team | Description | +--------+ + + + + | 11/22/ | Hospital | [facility] | HerminiaEliana | Seizure (HCC); | | 2015 - | Encounter | [facility] [address] | Subdural hematoma, | | | | [address] | [address] | post-traumatic, | | 11/26/ | | [place], [place] | [place] [address] | initial encounter | | 2014 | | [address] | [phone] | (HCC); Traumatic | | | | [phone] | | brain injury, | | | | | | closed, initial | | | | | | encounter (HCC); | | | | | | Traumatic brain | | | | | | injury, closed, | | | | | | sequela (HCC); | | | | | | Alcohol withdrawal | | | | | | (HCC); Cerebral | | | | | | edema (HCC); | | | | | | Hyposmolality and/or | | | | | | hyponatremia; S/P | | | | | | craniotomy; | | | | | | Traumatic brain | | | | | | injury, closed, | | | | | | subsequent encounter | | | | | | (HCC); | | | | | | Headache(784.0); | | | | | | Alcohol abuse; | | | | | | Debility, | | | | | | unspecified; | | | | | | Difficulty in | | | | | | walking(719.7); | | | | | | Frequent falls; | | | | | | Seizures (HCC) | +--------+ + + + + Social [...] documented as of this encounter Discharge Summaries Miguel Ángel John MD - 11/26/2014 9:30 AM PDTFormatting of this note might be different f rom the original. Discharge Summaries by Miguel Ángel John MD at 11/26/14929 Author: Miguel Ángel John MD Service: Hospitalist Author Type: Physician Filed: 11/26/14931 Date of Service: 11/26/14929 Status: Signed Tubing Mill Setter: Miguel Ángel John MD (Physician) [facility] Service: Hospitalist Discharge Summary Date of Admission: 11/22/2014 Date of Discharge: 11/24/14 Discharge Provider: Miguel Ángel John MD Treatment Team: Admitting Provider: Eliana Hope MD Discharge Diagnoses: Principal Problem: Subdural hematoma, post-traumatic Active Problems: Alcohol abuse Traumatic brain injury, closed Debility, unspecified Difficulty in walking Headache S/P craniotomy Seizures Resolved Problems: * No resolved hospital problems. * Final Diagnoses: See note Procedures: * No surgery found * BRIEF HISTORY OF PRESENTATION: Eliana Hope MD Physician Signed Hospitalist H&P 11/23/14 0252 Expand All Collapse All [facility] Service: Hospitalist Admission History & Physical Date of Admission: 11/22/2014 Requesting Physician: [facility] Reason for Admission: SZ and SDH History Obtained From: patient CHIEF COMPLAINT: SZ and MARSH. HISTORY OF PRESENT ILLNESS The patient is a 53 y.o. male with significant past medical history. 53 year old male transferred to this facility from [facility] for further evalu ation. The patient suffered a seizure earlier today and presented to their ED. CT at their facilit y was non-diagnositic for acute pathology. He was transferred here as he had a hemicraniotomy in September, after it was discovered that he had a SAH with midline shift. On arrival, the patient is c/ o MARSH that he rates a 6 on a scale of 1 to 10, but is awake and alert. Denies any other symptoms. He is mildly lethargic and confused (baseline) and continue to complain of MARSH 5/10. No SZ s vincenzo arrival. Dr Chong was consulted from ED. HOSPITAL COURSE: Patient admitted as above. Seen by neurosurgery and felt to not require surgical inte rvention. Plan was recc to f/u CT scan with neurosurgery in 4-6 weeks or sooner if needed. Given report of potential seizure COMPLETIONS ENGINEER I asked staff to confirm the dose and consitancy whic h which pt was getting keppra and reportedly getting 1 gm bid. I discussed with neurosurger y as on same dose here no seizure witness as far as I know and we felt it was reasonable to increase the dose to 1250 mg po bid for now and if any further seizures were seen then forma l neurology eval would be needed. Patient will need a talha to transport and staff is work ing on getting this jae presently. Pt kept on there COMPLETIONS ENGINEER meds as possible. 11/26/14: patient still ready to d/c once the talha arrives. Nursing is looking into this f urther. The tsh is high but the T4 is in normal range. Would recc recheck and [facility] Recent Labs Lab 11/25/14 0529 11/23/14 0425 TSH -- 12.42* FREET4 0.9 -- Past Medical History Diagnosis Date Alcohol abuse Frequent falls Drug abuse Past Surgical History Procedure Laterality Date No past surgeries Craniotomy Right 10/11/2014 Procedure: CRANIOTOMY - FOR BLEED; Surgeon: Anthony Chong MD; Location: [facility] IN OR; Service: Neurosurgery; Laterality: Right; Craniectomy Right 10/11/2014 Procedure: CRANIECTOMY; Surgeon: Anthony Chong MD; Location: [facility] OR; Ser vice: Neurosurgery; Laterality: Right; Allergies Allergen Reactions Penicillins Other (See Comments) Unknown Prescriptions prior to admission Medication Sig Dispense Refill acetaminophen (TYLENOL) 650 MG CR tablet Take 650 mg by mouth every 8 (eight) hours as needed for Pain. Multiple Vitamin (MULTIVITAMIN) tablet Take 1 tablet by mouth daily. QUEtiapine (SEROQUEL) 25 MG tablet Take 1 tablet by mouth nightly. 30 tablet 0 thiamine (VITAMIN B-1) 100 MG tablet Take 1 tablet by mouth daily. 30 tablet 0 DISCHARGE EXAM Vital Signs: BP 114/71 | Pulse 54 | Temp(Src) 98.8 F (37.1 C) (Oral) | Resp 18 | Ht 1.778 m (5' 10") | Wt 87.6 kg (193 lb 2 oz) | BMI 27.71 kg/m2 | SpO2 97% Temp: [98.4 F (36.9 C)-98.8 F (37.1 C)] 98.8 F (37.1 C) (11/26 738) BP: (97-119)/(63-81) 114/71 mmHg (11/26 738) Heart Rate: [54-83] 54 (11/26 738) Resp: [17-18] 18 (11/26 738) SpO2: [95 %-98 %] 97 % (11/26 738) Patient Vitals for the past 24 hrs: BP Temp Temp src Pulse Resp SpO2 11/26/14 0739 114/71 mmHg 98.8 F (37.1 C) Oral 54 18 97 % 11/26/14 0327 119/79 mmHg 98.4 F (36.9 C) Oral 62 17 97 % 11/25/14 2342 97/64 mmHg 98.7 F (37.1 C) Oral 57 17 97 % 11/25/142019 115/81 mmHg 98.6 F (37 C) Oral 71 17 97 % 11/25/14 1545 112/77 mmHg 98.6 F (37 C) Oral 83 17 95 % 11/25/14 1245 98/63 mmHg 98.5 F (36.9 C) Oral 78 18 98 % Temp (24hrs), Av.6 F (37 C), Min:98.4 F (36.9 C), Max:98.8 F (37.1 C) Systolic (24hrs), Av mmHg, Min:97 mmHg, Max:119 mmHg Diastolic (24hrs), Av mmHg, Min:63 mmHg, Max:81 mmHg I&O Current Shift: I&O Yesterday: 11/25 0700 - 11/26 0659 In: 1055 [P.O.:1055] Out: - I&O Last 3 Shifts: 11/24 1900 - 11/26 0659 In: 1055 [P.O.:1055] Out: - Intake/Output Summary (Last 24 hours) at 11/26/14 0930 Last data filed at 11/26/14 0329 Gross per 24 hour Intake 1055 ml Output 0 ml Net 1055 ml I&O Detailed Table: Physical Exam Constitutional: He appears well-nourished. No distress. HENT: Mouth/Throat: Oropharynx is clear and moist. No oropharyngeal exudate. Right sided craniotomy noted Eyes: Conjunctivae are normal. No scleral icterus. Neck: No JVD present. No tracheal deviation present. Cardiovascular: Normal rate and regular rhythm. No murmur heard. Pulmonary/Chest: Effort normal. No stridor. No respiratory distress. He has no wheezes. He has no rales. He exhibits no tenderness. Abdominal: Soft. Bowel sounds are normal. He exhibits no distension. There is no tenderness . There is no rebound and no guarding. Musculoskeletal: He exhibits no edema or tenderness. Neurological: He is alert. Skin: Skin is warm and dry. No rash noted. He is not diaphoretic. No erythema. No pallor. Psychiatric: He has a normal mood and affect. His behavior is normal. Nursing note and vitals reviewed. DATA Results for EVANS MCGUIRE ( ) as of 11/24/2014 19:27 Ref. Range 10/25/2014 04:06 11/22/2014 20:44 11/23/2014 04:25 11/24/2014 05:53 WBC Latest Range: 3.80-11.00 K/uL 9.58 8.55 7.24 RBC Latest Range: 4.20-5.70 M/uL 3.99 (L) 4.01 (L) 4.01 (L) HGB Latest Range: 13.2-17.0 g/dL 12.4 (L) 12.5 (L) 12.3 (L) HCT Latest Range: 39.0-50.0 % 37.9 (L) 38.0 (L) 37.8 (L) MCV Latest Range: 80.0-100.0 fl 95.2 94.9 94.3 MCH Latest Range: 27.0-34.0 pg 31.0 31.2 30.6 MCHC Latest Range: 32.0-35.5 g/dL 32.6 32.9 32.4 RDW SD Latest Range: 37-53 fl 48.1 47.3 47.7 Platelets Latest Range: 150-400 K/uL 165 171 153 MPV No range found 9.5 8.8 9.0 DIFF TYPE No range found AUTOMATED AUTOMATED AUTOMATED NEUTROPHILS No range found 79.71 67.69 70.29 LYMPHOCYTES No range found 12.56 20.09 14.74 MONOCYTES No range found 6.71 9.27 10.97 EOSINOPHILS No range found 0.69 2.66 3.52 BASOPHILS No range found 0.33 0.29 0.48 NEUTROPHILS ABS Latest Range: 1.90-7.40 K/uL 7.64 (H) 5.79 5.09 LYMPHOCYTES ABS Latest Range: 1.00-3.90 K/uL 1.20 1.72 1.07 MONOCYTES ABS Latest Range: 0.00-0.80 K/uL 0.64 0.79 0.79 EOSINOPHILS ABS Latest Range: 0.00-0.50 K/uL 0.07 0.23 0.26 BASOPHILS ABS Latest Range: 0.00-0.10 K/uL 0.03 0.03 0.03 SODIUM Latest Range: 135-143 mmol/L 134 (L) 138 136 135 POTASSIUM Latest Range: 3.5-4.9 mmol/L 3.8 4.0 4.2 4.0 CHLORIDE Latest Range: 99-109 mmol/L 101 105 102 102 CO2 Latest Range: 23-32 mmol/L 28 25 25 26 ANION GAP AGAP Latest Range: 5-20 mmol/L 9 12 13 11 GLUCOSE Latest Range: 65-99 mg/dL 119 (H) 114 (H) 113 (H) 103 (H) BUN Latest Range: 8-25 mg/dL 8 4 (L) 4 (L) 6 (L) CREATININE Latest Range: 0.70-1.30 mg/dL 0.54 (L) 0.73 0.60 (L) 0.63 (L) BUN/CREAT No range found 15 5 7 10 CALCIUM Latest Range: 8.5-10.5 mg/dL 9.4 8.3 (L) 9.4 9.3 TOTAL PROTEIN Latest Range: 6.3-8.2 g/dL 7.7 7.3 6.9 ALBUMIN Latest Range: 3.6-5.0 g/dL 3.3 (L) 3.7 3.5 (L) GLOBULIN Latest Range: 1.3-4.9 g/dL 4.4 3.6 3.4 TBIL Latest Range: 0.1-1.5 mg/dL 0.3 0.5 0.5 ALK PHOS Latest Range: 35-115 U/L 137 (H) 104 103 AST Latest Range: 10-45 U/L 37 36 27 ALT Latest Range: 10-65 U/L 37 26 23 EGFR Latest Range: >60 mL/min/1.73m2 >60 >60 >60 >60 PHOSPHORUS Latest Range: 2.3-4.8 mg/dL 4.7 5.7 (H) MAGNESIUM Latest Range: 1.7-2.4 mg/dL 2.0 2.0 A/G Latest Range: 1.0-2.4 0.7 (L) 1.0 1.0 Procedure Component Value Units Date/Time CT head without contrast [[id number]] Resulted: 11/23/14719 Order Status: Completed Updated: 11/23/14724 Narrative: EVANS MCGUIRE [address] HEAD WO CONTRAST 11/23/2014 7:13 AM INDICATION: Altered mental status, hemorrhage COMPARISON: 11/22/14 TECHNIQUE: CT scan of the head without contrast. 5-mm axial noncontrast images were acquir ed from the foramen magnum through the cranial vertex. FINDINGS: On recreation professor imaging, there is normal craniocervical alignment with no prevertebral s oft tissue swelling. There is no tonsillar herniation present. Postsurgical changes are present from a right fro ntal temporal craniectomy. No uncal herniation is demonstrated. There is demonstration of de creased attenuation of the right temporal lobe and right frontal lobe. The degree of slight loss of cortical differentiation is slightly more pronounced on today's examination and larg er. There is relative sparing of the medial margin of the right cerebral hemisphere. There i s minimal 3 mm right to left midline shift. The ventricular system is normal in size. Minima l soft tissue attenuation is noted along the craniectomy defect which may reflect some resid ual subdural blood. The parotid glands are normal. The orbits and globes are normal in appea robert. The mastoid air cells are well aerated. The paranasal sinuses are clear. Impression: 1. There is developing decreased attenuation along the right supratentorial cerebral sol sphere. The imaging findings are concerning for possible right MCA distribution ischemia in the appropriate clinical context. Alternatively, this may reflect some increasing vasogenic edema related to recent subdural hemorrhage and postoperative change. If indicated, further evaluation with MRI could be performed. Head Non-Con [[id number]] Resulted: 11/22/142119 Order Status: Completed Updated: 11/22/142124 Narrative: EVANS MCGUIRE CT HEAD WO CONTRAST 11/22/2014 9:08 PM HISTORY: 53 years. Male. Subdural hematoma. TECHNIQUE: 5-mm axial noncontrast images were acquired from the foramen magnum through the cranial fidelina amadeo. COMPARISON: CT head noncontrast 11/22/[address] [facility] 10/14/2014 FINDINGS: An extensive right-sided craniectomy is noted. A small hyperdense extra-axial fluid collec tion is seen in the anterior margin of the craniectomy adjacent to the right frontal lobe me asuring 9 x 18 mm, increased from 9 x 14 mm on 10/17/2014. This does not produce any signif icant mass effect on the adjacent right frontal lobe. Dural repair material is seen overlyi ng the brain parenchyma at the craniectomy site with some areas of calcification and increas ed density. This does not represent a subdural hematoma. Linear hyperdense material is als o seen at the lateral margin of the right middle cranial fossa which may represent Surgicel or some other type of hemostatic material which is unchanged since 2014. Again this does not appear to represent a definite subdural hematoma. The brain parenchyma is oth erwise normal in attenuation. No midline shift is seen. The ventricles are normal in size. No signs of hyperacute stroke including loss of the insular ribbon or dense middle cerebra l artery sign are noted. The orbits and their contents are normal. The paranasal sinuses a re well aerated. No mucosal thickening or air-fluid levels are noted. The mastoid air cell s show normal pneumatization bilaterally. No mastoid fluid noted. The osseous structures o f the calvaria do not demonstrate fracture. No lytic or blastic lesions are noted. Impression: 1. Biconvex hyperdense extra-axial fluid collection suggesting a small subdural hematoma adjacent to the anterior margin of the right-sided craniectomy site currently measuring 9 x 18 mm compared with 9 x 14 mm 10/17/2014. This may indicate persistent venous oozing. It is not producing any significant mass effect. 2. Otherwise largely normal CT scan of the head post right craniectomy. Disposition: longterm Condition: Stable Code Status: Full Code Discharge Instructions CBC w/auto diff (reflex to manual) Standing Status: Future Number of Occurrences: 1 Standing Exp. Date: 12/13/15 Comprehensive metabolic panel Standing Status: Future Number of Occurrences: 1 Standing Exp. Date: 12/12/14 Magnesium Standing Status: Future Number of Occurrences: 1 Standing Exp. Date: 12/12/14 Phosphorus Standing Status: Future Number of Occurrences: 1 Standing Exp. Date: 12/12/14 Diet General Activity as Advised by Physical Therapy Call MD for: Order Comments: For any distress or recurrent seizure activity especially if frequent or molina stained--as per d/w neurosurgery in this case would need neurology formal eval for managemen t of seizures As neurosurgery has managed up to this point from what I understand. Call MD for: Extreme Fatigue Call MD for: Persistant Dizziness or Light-Headedness Call MD for: Hives Call MD for: Difficulty Breathing, Headache or Visual Disturbances Call MD for: Redness, Tenderness, or Signs of Infection (Pain, Swelling, Redness, Odor or Green/Yellow Discharge Around Incision Site) Call MD for: Severe Uncontrolled Pain Call MD for: Persistant Nausea and Vomiting Call MD for: Temperature > 100.4F (38C) Seizure precautions Order Comments: Resume all seizure precautions you were on prior to admission, wear talha at all times Or as per prior neurosurgery orders. Aspiration precautions Fall precautions [facility] [address] [facility] [id number] In 4 weeks to eval for replacement of skull flap or sooner if needed Carlos Mcconnell MD [address] [place] [id number] In 1 week or next available whichever is first resume care with all providers you were seeingbefore admission Medication List START taking these medications polyethylene glycol packet QTY: 14 each Refills: 0 Commonly known as: GLYCOLAX Take 17 g by mouth daily as needed. CHANGE how you take these medications levetiracetam 250 MG tablet QTY: 150 tablet Refills: 0 Commonly known as: KEPPRA Take 5 tablets by mouth 2 (two) times daily. What changed: - medication strength - how much to take CONTINUE taking these medications acetaminophen 650 MG CR tablet Refills: 0 Commonly known as: TYLENOL HYDROcodone-acetaminophen 5-325 MG per tablet QTY: 20 tablet Refills: 0 Commonly known as: NORCO Take 1 tablet by mouth every 6 (six) hours as needed for Pain. multivitamin tablet Refills: 0 QUEtiapine 25 MG tablet QTY: 30 tablet Refills: 0 Commonly known as: SEROquel Take 1 tablet by mouth nightly. thiamine 100 MG tablet QTY: 30 tablet Refills: 0 Commonly known as: VITAMIN B-1 Take 1 tablet by mouth daily. Where to Get Your Medications These are the prescriptions that you need to bulk picker. You may get the following medications from any pharmacy - HYDROcodone-acetaminophen 5-325 MG per tablet - levetiracetam 250 MG tablet - polyethylene glycol packet Discharge took 40inutes, to include final examination, discussion of admission, and prepara tion of prescriptions, instructions for on-going care, follow-up and documentation of discha rge summary. Miguel Ángel Jonh MD 11/26/2014 iguel Ángel John MD - 11/25/2014 10:15 AM PDT Discharge Summaries by Miguel Ángel John MD at 11/25/14 1015 Author: Miguel Ángel John MD Service: Hospitalist Author Type: Physician Filed: 11/25/14 1016 Date of Service: 11/25/14 1015 Status: Signed Tubing Mill Setter: Miguel Ángel John MD (Physician) [facility] Service: Hospitalist Discharge Summary Date of Admission: 11/22/2014 Date of Discharge: 11/24/14 Discharge Provider: Miguel Ángel John MD Treatment Team: Admitting Provider: Eliana Hope MD Discharge Diagnoses: Principal Problem: Subdural hematoma, post-traumatic Active Problems: Alcohol abuse Traumatic brain injury, closed Debility, unspecified Difficulty in walking Headache S/P craniotomy Seizures Resolved Problems: * No resolved hospital problems. * Final Diagnoses: See note Procedures: * No surgery found * BRIEF HISTORY OF PRESENTATION: Eliana Hope MD Physician Signed Hospitalist H&P 11/23/14 0252 Expand All Collapse All [facility] Service: Hospitalist Admission History & Physical Date of Admission: 11/22/2014 Requesting Physician: [facility] Reason for Admission: SZ and SDH History Obtained From: patient CHIEF COMPLAINT: SZ and MARSH. HISTORY OF PRESENT ILLNESS The patient is a 53 y.o. male with significant past medical history. 53 year old male transferred to this facility from [facility] for further evalu ation. The patient suffered a seizure earlier today and presented to their ED. CT at their facilit y was non-diagnositic for acute pathology. He was transferred here as he had a hemicraniotomy in September, after it was discovered that he had a SAH with midline shift. On arrival, the patient is c/ o MARSH that he rates a 6 on a scale of 1 to 10, but is awake and alert. Denies any other symptoms. He is mildly lethargic and confused (baseline) and continue to complain of MARSH 5/10. No SZ s vincenzo arrival. Dr Chong was consulted from ED. HOSPITAL COURSE: Patient admitted as above. Seen by neurosurgery and felt to not require surgical inte rvention. Plan was recc to f/u CT scan with neurosurgery in 4-6 weeks or sooner if needed. Given report of potential seizure COMPLETIONS ENGINEER I asked staff to confirm the dose and consitancy whic h which pt was getting keppra and reportedly getting 1 gm bid. I discussed with neurosurger y as on same dose here no seizure witness as far as I know and we felt it was reasonable to increase the dose to 1250 mg po bid for now and if any further seizures were seen then forma l neurology eval would be needed. Patient will need a talha to transport and staff is work ing on getting this jae presently. Pt kept on there COMPLETIONS ENGINEER meds as possible. 11/25/14: patient still ready to d/c once the talha arrives. Nursing is looking into this f urther. Past Medical History Diagnosis Date Alcohol abuse Frequent falls Drug abuse Past Surgical History Procedure Laterality Date No past surgeries Craniotomy Right 10/11/2014 Procedure: CRANIOTOMY - FOR BLEED; Surgeon: Anthony Chong MD; Location: [facility] IN OR; Service: Neurosurgery; Laterality: Right; Craniectomy Right 10/11/2014 Procedure: CRANIECTOMY; Surgeon: Anthony Chong MD; Location: [facility] OR; Ser vice: Neurosurgery; Laterality: Right; Allergies Allergen Reactions Penicillins Other (See Comments) Unknown Prescriptions prior to admission Medication Sig Dispense Refill acetaminophen (TYLENOL) 650 MG CR tablet Take 650 mg by mouth every 8 (eight) hours as needed for Pain. Multiple Vitamin (MULTIVITAMIN) tablet Take 1 tablet by mouth daily. QUEtiapine (SEROQUEL) 25 MG tablet Take 1 tablet by mouth nightly. 30 tablet 0 thiamine (VITAMIN B-1) 100 MG tablet Take 1 tablet by mouth daily. 30 tablet 0 DISCHARGE EXAM Vital Signs: BP 117/74 | Pulse 82 | Temp(Src) 98.3 F (36.8 C) (Oral) | Resp 18 | Ht 1.778 m (5' 10") | Wt 87.6 kg (193 lb 2 oz) | BMI 27.71 kg/m2 | SpO2 99% Temp: [97.4 F (36.3 C)-100 F (37.8 C)] 98.3 F (36.8 C) (11/25 721) BP: (104-120)/(65-81) 117/74 mmHg (11/25 721) Heart Rate: [71-93] 82 (11/25 721) Resp: [16-18] 18 (11/25 721) SpO2: [96 %-100 %] 99 % (11/25 721) Patient Vitals for the past 24 hrs: BP Temp Temp src Pulse Resp SpO2 11/25/14721 117/74 mmHg 98.3 F (36.8 C) Oral 82 18 99 % 11/25/14 0416 110/81 mmHg 98.5 F (36.9 C) Oral 82 16 96 % 11/24/14 2302 106/67 mmHg 97.4 F (36.3 C) Axillary 80 16 96 % 11/24/14 2212 - 97.6 F (36.4 C) Axillary - - - 11/24/14 1957 120/77 mmHg 100 F (37.8 C) Axillary 93 18 96 % 11/24/14 1541 114/75 mmHg 98.2 F (36.8 C) Axillary 78 16 100 % 11/24/14 1208 104/65 mmHg 98.5 F (36.9 C) Axillary 71 16 100 % Temp (24hrs), Av.4 F (36.9 C), Min:97.4 F (36.3 C), Max:100 F (37.8 C) Systolic (24hrs), Av mmHg, Min:104 mmHg, Max:120 mmHg Diastolic (24hrs), Av mmHg, Min:65 mmHg, Max:81 mmHg I&O Current Shift: I&O Yesterday: 11/24 699 - 11/25 658 In: 800 [P.O.:800] Out: - I&O Last 3 Shifts: 11/230 - 11/25 658 In: 1100 [P.O.:1100] Out: - Intake/Output Summary (Last 24 hours) at 11/25/14 1015 Last data filed at 11/24/14 1452 Gross per 24 hour Intake 700 ml Output 0 ml Net 700 ml I&O Detailed Table: Physical Exam Constitutional: He appears well-nourished. No distress. HENT: Mouth/Throat: Oropharynx is clear and moist. No oropharyngeal exudate. Right sided craniotomy noted Eyes: Conjunctivae are normal. No scleral icterus. Neck: No JVD present. No tracheal deviation present. Cardiovascular: Normal rate and regular rhythm. No murmur heard. Pulmonary/Chest: Effort normal. No stridor. No respiratory distress. He has no wheezes. He has no rales. He exhibits no tenderness. Abdominal: Soft. Bowel sounds are normal. He exhibits no distension. There is no tenderness . There is no rebound and no guarding. Musculoskeletal: He exhibits no edema or tenderness. Neurological: He is alert. Skin: Skin is warm and dry. No rash noted. He is not diaphoretic. No erythema. No pallor. Psychiatric: He has a normal mood and affect. His behavior is normal. Nursing note and vitals reviewed. DATA Results for EVANS MCGUIRE ( ) as of 11/24/2014 19:27 Ref. Range 10/25/2014 04:06 11/22/2014 20:44 11/23/2014 04:25 11/24/2014 05:53 WBC Latest Range: 3.80-11.00 K/uL 9.58 8.55 7.24 RBC Latest Range: 4.20-5.70 M/uL 3.99 (L) 4.01 (L) 4.01 (L) HGB Latest Range: 13.2-17.0 g/dL 12.4 (L) 12.5 (L) 12.3 (L) HCT Latest Range: 39.0-50.0 % 37.9 (L) 38.0 (L) 37.8 (L) MCV Latest Range: 80.0-100.0 fl 95.2 94.9 94.3 MCH Latest Range: 27.0-34.0 pg 31.0 31.2 30.6 MCHC Latest Range: 32.0-35.5 g/dL 32.6 32.9 32.4 RDW SD Latest Range: 37-53 fl 48.1 47.3 47.7 Platelets Latest Range: 150-400 K/uL 165 171 153 MPV No range found 9.5 8.8 9.0 DIFF TYPE No range found AUTOMATED AUTOMATED AUTOMATED NEUTROPHILS No range found 79.71 67.69 70.29 LYMPHOCYTES No range found 12.56 20.09 14.74 MONOCYTES No range found 6.71 9.27 10.97 EOSINOPHILS No range found 0.69 2.66 3.52 BASOPHILS No range found 0.33 0.29 0.48 NEUTROPHILS ABS Latest Range: 1.90-7.40 K/uL 7.64 (H) 5.79 5.09 LYMPHOCYTES ABS Latest Range: 1.00-3.90 K/uL 1.20 1.72 1.07 MONOCYTES ABS Latest Range: 0.00-0.80 K/uL 0.64 0.79 0.79 EOSINOPHILS ABS Latest Range: 0.00-0.50 K/uL 0.07 0.23 0.26 BASOPHILS ABS Latest Range: 0.00-0.10 K/uL 0.03 0.03 0.03 SODIUM Latest Range: 135-143 mmol/L 134 (L) 138 136 135 POTASSIUM Latest Range: 3.5-4.9 mmol/L 3.8 4.0 4.2 4.0 CHLORIDE Latest Range: 99-109 mmol/L 101 105 102 102 CO2 Latest Range: 23-32 mmol/L 28 25 25 26 ANION GAP AGAP Latest Range: 5-20 mmol/L 9 12 13 11 GLUCOSE Latest Range: 65-99 mg/dL 119 (H) 114 (H) 113 (H) 103 (H) BUN Latest Range: 8-25 mg/dL 8 4 (L) 4 (L) 6 (L) CREATININE Latest Range: 0.70-1.30 mg/dL 0.54 (L) 0.73 0.60 (L) 0.63 (L) BUN/CREAT No range found 15 5 7 10 CALCIUM Latest Range: 8.5-10.5 mg/dL 9.4 8.3 (L) 9.4 9.3 TOTAL PROTEIN Latest Range: 6.3-8.2 g/dL 7.7 7.3 6.9 ALBUMIN Latest Range: 3.6-5.0 g/dL 3.3 (L) 3.7 3.5 (L) GLOBULIN Latest Range: 1.3-4.9 g/dL 4.4 3.6 3.4 TBIL Latest Range: 0.1-1.5 mg/dL 0.3 0.5 0.5 ALK PHOS Latest Range: 35-115 U/L 137 (H) 104 103 AST Latest Range: 10-45 U/L 37 36 27 ALT Latest Range: 10-65 U/L 37 26 23 EGFR Latest Range: >60 mL/min/1.73m2 >60 >60 >60 >60 PHOSPHORUS Latest Range: 2.3-4.8 mg/dL 4.7 5.7 (H) MAGNESIUM Latest Range: 1.7-2.4 mg/dL 2.0 2.0 A/G Latest Range: 1.0-2.4 0.7 (L) 1.0 1.0 Procedure Component Value Units Date/Time CT head without contrast [[id number]] Resulted: 11/23/14719 Order Status: Completed Updated: 11/23/14724 Narrative: EVANS LOCKETTKATHI [address] HEAD WO CONTRAST 11/23/2014 7:13 AM INDICATION: Altered mental status, hemorrhage COMPARISON: 11/22/14 TECHNIQUE: CT scan of the head without contrast. 5-mm axial noncontrast images were acquir ed from the foramen magnum through the cranial vertex. FINDINGS: On recreation professor imaging, there is normal craniocervical alignment with no prevertebral s oft tissue swelling. There is no tonsillar herniation present. Postsurgical changes are present from a right fro ntal temporal craniectomy. No uncal herniation is demonstrated. There is demonstration of de creased attenuation of the right temporal lobe and right frontal lobe. The degree of slight loss of cortical differentiation is slightly more pronounced on today's examination and larg er. There is relative sparing of the medial margin of the right cerebral hemisphere. There i s minimal 3 mm right to left midline shift. The ventricular system is normal in size. Minima l soft tissue attenuation is noted along the craniectomy defect which may reflect some resid ual subdural blood. The parotid glands are normal. The orbits and globes are normal in appea robert. The mastoid air cells are well aerated. The paranasal sinuses are clear. Impression: 1. There is developing decreased attenuation along the right supratentorial cerebral sol sphere. The imaging findings are concerning for possible right MCA distribution ischemia in the appropriate clinical context. Alternatively, this may reflect some increasing vasogenic edema related to recent subdural hemorrhage and postoperative change. If indicated, further evaluation with MRI could be performed. Head Non-Con [[id number]] Resulted: 11/22/142119 Order Status: Completed Updated: 11/22/142124 Narrative: EVANS MCGUIRE CT HEAD WO CONTRAST 11/22/2014 9:08 PM HISTORY: 53 years. Male. Subdural hematoma. TECHNIQUE: 5-mm axial noncontrast images were acquired from the foramen magnum through the cranial fidelina amadeo. COMPARISON: CT head noncontrast 11/22/[address] [facility] 10/14/2014 FINDINGS: An extensive right-sided craniectomy is noted. A small hyperdense extra-axial fluid collec tion is seen in the anterior margin of the craniectomy adjacent to the right frontal lobe me asuring 9 x 18 mm, increased from 9 x 14 mm on 10/17/2014. This does not produce any signif icant mass effect on the adjacent right frontal lobe. Dural repair material is seen overlyi ng the brain parenchyma at the craniectomy site with some areas of calcification and increas ed density. This does not represent a subdural hematoma. Linear hyperdense material is als o seen at the lateral margin of the right middle cranial fossa which may represent Surgicel or some other type of hemostatic material which is unchanged since 2014. Again this does not appear to represent a definite subdural hematoma. The brain parenchyma is oth erwise normal in attenuation. No midline shift is seen. The ventricles are normal in size. No signs of hyperacute stroke including loss of the insular ribbon or dense middle cerebra l artery sign are noted. The orbits and their contents are normal. The paranasal sinuses a re well aerated. No mucosal thickening or air-fluid levels are noted. The mastoid air cell s show normal pneumatization bilaterally. No mastoid fluid noted. The osseous structures o f the calvaria do not demonstrate fracture. No lytic or blastic lesions are noted. Impression: 1. Biconvex hyperdense extra-axial fluid collection suggesting a small subdural hematoma adjacent to the anterior margin of the right-sided craniectomy site currently measuring 9 x 18 mm compared with 9 x 14 mm 10/17/2014. This may indicate persistent venous oozing. It is not producing any significant mass effect. 2. Otherwise largely normal CT scan of the head post right craniectomy. Disposition: longterm Condition: Stable Code Status: Full Code Discharge Instructions CBC w/auto diff (reflex to manual) Standing Status: Future Number of Occurrences: 1 Standing Exp. Date: 12/13/15 Comprehensive metabolic panel Standing Status: Future Number of Occurrences: 1 Standing Exp. Date: 12/12/14 Magnesium Standing Status: Future Number of Occurrences: 1 Standing Exp. Date: 12/12/14 Phosphorus Standing Status: Future Number of Occurrences: 1 Standing Exp. Date: 12/12/14 Diet General Activity as Advised by Physical Therapy Call MD for: Order Comments: For any distress or recurrent seizure activity especially if frequent or molina stained--as per d/w neurosurgery in this case would need neurology formal eval for managemen t of seizures As neurosurgery has managed up to this point from what I understand. Call MD for: Extreme Fatigue Call MD for: Persistant Dizziness or Light-Headedness Call MD for: Hives Call MD for: Difficulty Breathing, Headache or Visual Disturbances Call MD for: Redness, Tenderness, or Signs of Infection (Pain, Swelling, Redness, Odor or Green/Yellow Discharge Around Incision Site) Call MD for: Severe Uncontrolled Pain Call MD for: Persistant Nausea and Vomiting Call MD for: Temperature > 100.4F (38C) Seizure precautions Order Comments: Resume all seizure precautions you were on prior to admission, wear talha at all times Or as per prior neurosurgery orders. Aspiration precautions Fall precautions Follow up: [facility] [address] [facility] [id number] In 4 weeks to eval for replacement of skull flap or sooner if needed Carlos Mcconnell MD [id number] [place] [id number] In 1 week or next available whichever is first resume care with all providers you were seeingbefore admission Medication List START taking these medications polyethylene glycol packet QTY: 14 each Refills: 0 Commonly known as: GLYCOLAX Take 17 g by mouth daily as needed. CHANGE how you take these medications levetiracetam 250 MG tablet QTY: 150 tablet Refills: 0 Commonly known as: KEPPRA Take 5 tablets by mouth 2 (two) times daily. What changed: - medication strength - how much to take CONTINUE taking these medications acetaminophen 650 MG CR tablet Refills: 0 Commonly known as: TYLENOL HYDROcodone-acetaminophen 5-325 MG per tablet QTY: 20 tablet Refills: 0 Commonly known as: NORCO Take 1 tablet by mouth every 6 (six) hours as needed for Pain. multivitamin tablet Refills: 0 QUEtiapine 25 MG tablet QTY: 30 tablet Refills: 0 Commonly known as: SEROquel Take 1 tablet by mouth nightly. thiamine 100 MG tablet QTY: 30 tablet Refills: 0 Commonly known as: VITAMIN B-1 Take 1 tablet by mouth daily. Where to Get Your Medications These are the prescriptions that you need to bulk picker. You may get the following medications from any pharmacy - HYDROcodone-acetaminophen 5-325 MG per tablet - levetiracetam 250 MG tablet - polyethylene glycol packet Discharge took 40inutes, to include final examination, discussion of admission, and prepara tion of prescriptions, instructions for on-going care, follow-up and documentation of discha rge summary. Miguel Ángel John MD 11/25/2014 Miguel Ángel Arauz MD - 11/24/2014 9:36 AM PST Discharge Summaries by Miguel Ángel John MD at 11/24/14 0936 Author: Miguel Ángel John MD Service: Hospitalist Author Type: Physician Filed: 11/24/14 1933 Date of Service: 11/24/1436 Status: Signed Tubing Mill Setter: Miguel Ángel John MD (Physician) [facility] Service: Hospitalist Discharge Summary Date of Admission: 11/22/2014 Date of Discharge: 11/24/14 Discharge Provider: Miguel Ángel John MD Treatment Team: Consulting Physician: Anthony Chong MD Admitting Provider: Eliana Hope MD Discharge Diagnoses: Principal Problem: Subdural hematoma, post-traumatic Active Problems: Alcohol abuse Traumatic brain injury, closed Debility, unspecified Difficulty in walking Headache S/P craniotomy Seizures Resolved Problems: * No resolved hospital problems. * Final Diagnoses: See note Procedures: * No surgery found * BRIEF HISTORY OF PRESENTATION: Eliana Hope MD Physician Signed Hospitalist H&P 11/23/14 0252 Expand All Collapse All [facility] Service: Hospitalist Admission History & Physical Date of Admission: 11/22/2014 Requesting Physician: Carter , Emergency Department Reason for Admission: SZ and SDH History Obtained From: patient CHIEF COMPLAINT: SZ and MARSH. HISTORY OF PRESENT ILLNESS The patient is a 53 y.o. male with significant past medical history. 53 year old male transferred to this facility from [facility] for further evalu ation. The patient suffered a seizure earlier today and presented to their ED. CT at their facilit y was non-diagnositic for acute pathology. He was transferred here as he had a hemicraniotomy in September, after it was discovered that he had a SAH with midline shift. On arrival, the patient is c/ o MARSH that he rates a 6 on a scale of 1 to 10, but is awake and alert. Denies any other symptoms. He is mildly lethargic and confused (baseline) and continue to complain of MARSH 5/10. No SZ s vincenzo arrival. Dr Chong was consulted from ED. HOSPITAL COURSE: Patient admitted as above. Seen by neurosurgery and felt to not require surgical inte rvention. Plan was recc to f/u CT scan with neurosurgery in 4-6 weeks or sooner if needed. Given report of potential seizure COMPLETIONS ENGINEER I asked staff to confirm the dose and consitancy whic h which pt was getting keppra and reportedly getting 1 gm bid. I discussed with neurosurger y as on same dose here no seizure witness as far as I know and we felt it was reasonable to increase the dose to 1250 mg po bid for now and if any further seizures were seen then forma l neurology eval would be needed. Patient will need a talha to transport and staff is work ing on getting this jae presently. Pt kept on there COMPLETIONS ENGINEER meds as possible. Past Medical History Diagnosis Date Alcohol abuse Frequent falls Drug abuse Past Surgical History Procedure Laterality Date No past surgeries Craniotomy Right 10/11/2014 Procedure: CRANIOTOMY - FOR BLEED; Surgeon: Anthony Chong MD; Location: [facility] IN OR; Service: Neurosurgery; Laterality: Right; Craniectomy Right 10/11/2014 Procedure: CRANIECTOMY; Surgeon: Anthony Chong MD; Location: [facility] MAIN OR; Ser vice: Neurosurgery; Laterality: Right; Allergies Allergen Reactions Penicillins Other (See Comments) Unknown Prescriptions prior to admission Medication Sig Dispense Refill acetaminophen (TYLENOL) 650 MG CR tablet Take 650 mg by mouth every 8 (eight) hours as needed for Pain. HYDROcodone-acetaminophen (NORCO) 5-325 MG per tablet Take 1 tablet by mouth every 6 (s ix) hours as needed for Pain. levETIRAcetam (KEPPRA) 1000 MG tablet Take 1 tablet by mouth 2 (two) times daily. 60 t ablet 0 Multiple Vitamin (MULTIVITAMIN) tablet Take 1 tablet by mouth daily. QUEtiapine (SEROQUEL) 25 MG tablet Take 1 tablet by mouth nightly. 30 tablet 0 thiamine (VITAMIN B-1) 100 MG tablet Take 1 tablet by mouth daily. 30 tablet 0 DISCHARGE EXAM Vital Signs: BP 103/59 | Pulse 66 | Temp(Src) 98.4 F (36.9 C) (Axillary) | Resp 16 | Ht 1.778 m (5' 10") | Wt 87.6 kg (193 lb 2 oz) | BMI 27.71 kg/m2 | SpO2 98% Temp: [98.2 F (36.8 C)-98.8 F (37.1 C)] 98.2 F (36.8 C) (11/24 1540) BP: (94-114)/(59-75) 114/75 mmHg (11/24 1540) Heart Rate: [66-78] 78 (11/24 1540) Resp: [14-16] 16 (11/24 1540) SpO2: [97 %-100 %] 100 % (11/24 1540) Weight: [87.6 kg (193 lb 2 oz)] 87.6 kg (193 lb 2 oz) (11/24 356) Patient Vitals for the past 24 hrs: BP Temp Temp src Pulse Resp SpO2 Weight 11/24/14 1541 114/75 mmHg 98.2 F (36.8 C) Axillary 78 16 100 % - 11/24/14 1208 104/65 mmHg 98.5 F (36.9 C) Axillary 71 16 100 % - 11/24/14 0750 103/59 mmHg 98.4 F (36.9 C) Axillary 66 16 98 % - 11/24/14 0357 94/61 mmHg 98.4 F (36.9 C) Oral 69 16 99 % 87.6 kg (193 lb 2 oz) 11/23/14 2303 102/64 mmHg 98.3 F (36.8 C) Oral 77 16 99 % - 11/23/14 1956 97/66 mmHg 98.8 F (37.1 C) Oral 72 14 97 % - Temp (24hrs), Av.4 F (36.9 C), Min:98.2 F (36.8 C), Max:98.8 F (37.1 C) Systolic (24hrs), Av mmHg, Min:94 mmHg, Max:114 mmHg Diastolic (24hrs), Av mmHg, Min:59 mmHg, Max:75 mmHg I&O Current Shift: I&O Yesterday: 11/23 699 - 11/24 0659 In: 800 [P.O.:800] Out: 375 [Urine:375] I&O Last 3 Shifts: 11/23 699 - 11/24 1859 In: 1600 [P.O.:1600] Out: 375 [Urine:375] Intake/Output Summary (Last 24 hours) at 11/24/14 193 Last data filed at 11/24/14 1452 Gross per 24 hour Intake 1100 ml Output 0 ml Net 1100 ml I&O Detailed Table: Physical Exam Constitutional: He appears well-nourished. No distress. HENT: Mouth/Throat: Oropharynx is clear and moist. No oropharyngeal exudate. Right sided craniotomy noted Eyes: Conjunctivae are normal. No scleral icterus. Neck: No JVD present. No tracheal deviation present. Cardiovascular: Normal rate and regular rhythm. No murmur heard. Pulmonary/Chest: Effort normal. No stridor. No respiratory distress. He has no wheezes. He has no rales. He exhibits no tenderness. Abdominal: Soft. Bowel sounds are normal. He exhibits no distension. There is no tenderness . There is no rebound and no guarding. Musculoskeletal: He exhibits no edema or tenderness. Neurological: He is alert. Skin: Skin is warm and dry. No rash noted. He is not diaphoretic. No erythema. No pallor. Psychiatric: He has a normal mood and affect. His behavior is normal. Nursing note and vitals reviewed. DATA Results for EVANS MCGUIRE ( ) as of 11/24/2014 19:27 Ref. Range 10/25/2014 04:06 11/22/2014 20:44 11/23/2014 04:25 11/24/2014 05:53 WBC Latest Range: 3.80-11.00 K/uL 9.58 8.55 7.24 RBC Latest Range: 4.20-5.70 M/uL 3.99 (L) 4.01 (L) 4.01 (L) HGB Latest Range: 13.2-17.0 g/dL 12.4 (L) 12.5 (L) 12.3 (L) HCT Latest Range: 39.0-50.0 % 37.9 (L) 38.0 (L) 37.8 (L) MCV Latest Range: 80.0-100.0 fl 95.2 94.9 94.3 MCH Latest Range: 27.0-34.0 pg 31.0 31.2 30.6 MCHC Latest Range: 32.0-35.5 g/dL 32.6 32.9 32.4 RDW SD Latest Range: 37-53 fl 48.1 47.3 47.7 Platelets Latest Range: 150-400 K/uL 165 171 153 MPV No range found 9.5 8.8 9.0 DIFF TYPE No range found AUTOMATED AUTOMATED AUTOMATED NEUTROPHILS No range found 79.71 67.69 70.29 LYMPHOCYTES No range found 12.56 20.09 14.74 MONOCYTES No range found 6.71 9.27 10.97 EOSINOPHILS No range found 0.69 2.66 3.52 BASOPHILS No range found 0.33 0.29 0.48 NEUTROPHILS ABS Latest Range: 1.90-7.40 K/uL 7.64 (H) 5.79 5.09 LYMPHOCYTES ABS Latest Range: 1.00-3.90 K/uL 1.20 1.72 1.07 MONOCYTES ABS Latest Range: 0.00-0.80 K/uL 0.64 0.79 0.79 EOSINOPHILS ABS Latest Range: 0.00-0.50 K/uL 0.07 0.23 0.26 BASOPHILS ABS Latest Range: 0.00-0.10 K/uL 0.03 0.03 0.03 SODIUM Latest Range: 135-143 mmol/L 134 (L) 138 136 135 POTASSIUM Latest Range: 3.5-4.9 mmol/L 3.8 4.0 4.2 4.0 CHLORIDE Latest Range: 99-109 mmol/L 101 105 102 102 CO2 Latest Range: 23-32 mmol/L 28 25 25 26 ANION GAP AGAP Latest Range: 5-20 mmol/L 9 12 13 11 GLUCOSE Latest Range: 65-99 mg/dL 119 (H) 114 (H) 113 (H) 103 (H) BUN Latest Range: 8-25 mg/dL 8 4 (L) 4 (L) 6 (L) CREATININE Latest Range: 0.70-1.30 mg/dL 0.54 (L) 0.73 0.60 (L) 0.63 (L) BUN/CREAT No range found 15 5 7 10 CALCIUM Latest Range: 8.5-10.5 mg/dL 9.4 8.3 (L) 9.4 9.3 TOTAL PROTEIN Latest Range: 6.3-8.2 g/dL 7.7 7.3 6.9 ALBUMIN Latest Range: 3.6-5.0 g/dL 3.3 (L) 3.7 3.5 (L) GLOBULIN Latest Range: 1.3-4.9 g/dL 4.4 3.6 3.4 TBIL Latest Range: 0.1-1.5 mg/dL 0.3 0.5 0.5 ALK PHOS Latest Range: 35-115 U/L 137 (H) 104 103 AST Latest Range: 10-45 U/L 37 36 27 ALT Latest Range: 10-65 U/L 37 26 23 EGFR Latest Range: >60 mL/min/1.73m2 >60 >60 >60 >60 PHOSPHORUS Latest Range: 2.3-4.8 mg/dL 4.7 5.7 (H) MAGNESIUM Latest Range: 1.7-2.4 mg/dL 2.0 2.0 A/G Latest Range: 1.0-2.4 0.7 (L) 1.0 1.0 Procedure Component Value Units Date/Time CT head without contrast [[id number]] Resulted: 11/23/14719 Order Status: Completed Updated: 11/23/14724 Narrative: EVANS MCGUIRE [address] HEAD WO CONTRAST 11/23/2014 7:13 AM INDICATION: Altered mental status, hemorrhage COMPARISON: 11/22/14 TECHNIQUE: CT scan of the head without contrast. 5-mm axial noncontrast images were acquir ed from the foramen magnum through the cranial vertex. FINDINGS: On recreation professor imaging, there is normal craniocervical alignment with no prevertebral s oft tissue swelling. There is no tonsillar herniation present. Postsurgical changes are present from a right fro ntal temporal craniectomy. No uncal herniation is demonstrated. There is demonstration of de creased attenuation of the right temporal lobe and right frontal lobe. The degree of slight loss of cortical differentiation is slightly more pronounced on today's examination and larg er. There is relative sparing of the medial margin of the right cerebral hemisphere. There i s minimal 3 mm right to left midline shift. The ventricular system is normal in size. Minima l soft tissue attenuation is noted along the craniectomy defect which may reflect some resid ual subdural blood. The parotid glands are normal. The orbits and globes are normal in appea robert. The mastoid air cells are well aerated. The paranasal sinuses are clear. Impression: 1. There is developing decreased attenuation along the right supratentorial cerebral sol sphere. The imaging findings are concerning for possible right MCA distribution ischemia in the appropriate clinical context. Alternatively, this may reflect some increasing vasogenic edema related to recent subdural hemorrhage and postoperative change. If indicated, further evaluation with MRI could be performed. Head Non-Con [[id number]] Resulted: 11/22/142119 Order Status: Completed Updated: 11/22/142124 Narrative: EVANS LOCKETTKATHI CT HEAD WO CONTRAST 11/22/2014 9:08 PM HISTORY: 53 years. Male. Subdural hematoma. TECHNIQUE: 5-mm axial noncontrast images were acquired from the foramen magnum through the cranial fidelina amadeo. COMPARISON: CT head noncontrast 11/22/[address] [facility] 10/14/2014 FINDINGS: An extensive right-sided craniectomy is noted. A small hyperdense extra-axial fluid collec tion is seen in the anterior margin of the craniectomy adjacent to the right frontal lobe me asuring 9 x 18 mm, increased from 9 x 14 mm on 10/17/2014. This does not produce any signif icant mass effect on the adjacent right frontal lobe. Dural repair material is seen overlyi ng the brain parenchyma at the craniectomy site with some areas of calcification and increas ed density. This does not represent a subdural hematoma. Linear hyperdense material is als o seen at the lateral margin of the right middle cranial fossa which may represent Surgicel or some other type of hemostatic material which is unchanged since 2014. Again this does not appear to represent a definite subdural hematoma. The brain parenchyma is oth erwise normal in attenuation. No midline shift is seen. The ventricles are normal in size. No signs of hyperacute stroke including loss of the insular ribbon or dense middle cerebra l artery sign are noted. The orbits and their contents are normal. The paranasal sinuses a re well aerated. No mucosal thickening or air-fluid levels are noted. The mastoid air cell s show normal pneumatization bilaterally. No mastoid fluid noted. The osseous structures o f the calvaria do not demonstrate fracture. No lytic or blastic lesions are noted. Impression: 1. Biconvex hyperdense extra-axial fluid collection suggesting a small subdural hematoma adjacent to the anterior margin of the right-sided craniectomy site currently measuring 9 x 18 mm compared with 9 x 14 mm 10/17/2014. This may indicate persistent venous oozing. It is not producing any significant mass effect. 2. Otherwise largely normal CT scan of the head post right craniectomy. Disposition: longterm Condition: Stable Code Status: Full Code No discharge procedures on file. Follow up: [facility] [address] [facility] [id number] In 4 weeks to eval for replacement of skull flap or sooner if needed Carlos Mcconnell MD [address] [place] [id number] In 1 week or next available whichever is first resume care with all providers you were seeingbefore admission Medication List Notice You have not been prescribed any medications. Discharge took 40inutes, to include final examination, discussion of admission, and prepara tion of prescriptions, instructions for on-going care, follow-up and documentation of discha rge summary. Miguel Ángel John MD 11/24/2014 documented in this encounter Progress Notes Conversion Transaction, Provider Unknown - 11/26/2014 5:14 PM PDTFormatting of this note m ight be different from the original. Nurse Progress Note by Mirtha Suh RN at 11/26/14 1714 Author: Mirtha Suh RN Service: (none) Author Type: Registered Nurse Filed: 11/26/141714 Date of Service: 11/26/141713 Status: Signed Tubing Mill Setter: Mirtha Suh RN (Registered Nurse) Discharge packet given to transport drivers, report on pt given, all questions answered. IV removed. Report called to Na GALARZA at [facility]. Patient left via transport to [facility]. onver alem Transaction, Provider Unknown - 11/26/2014 4:18 PM PDT Case Management by Josseline Mera RN at 11/26/14 1618 Author: Josseline Mera RN Service: (none) Author Type: Store Team Leader Filed: 11/26/14 1619 Date of Service: 11/26/14 1618 Status: Signed Tubing Mill Setter: Josseline Mera RN (Store Team Leader) Disposition: [facility] Transportation: [place] Medicaid-ambulance All orders, signed AVS, and prescriptions have been faxed All DC paperwork completed Patient and family in agreement with discharge plan Medicare important message (N/A): Josseline Mera onver alem Transaction, Provider Unknown - 11/26/2014 9:08 AM PDT Case Management by Josseline Mera RN at 11/26/14 0908 Author: Josseline Mera RN Service: (none) Author Type: Store Team Leader Filed: 11/26/14 1320 Date of Service: 11/26/14 0908 Status: Addendum Tubing Mill Setter: Josseline Mera RN (Store Team Leader) Related Notes: Original Note by Josseline Mera RN (Store Team Leader) filed at 11/26/14 0954 Discharge Plans: Informed that helmet did not arrive on Wednesday as promised, thus pt has not been discharged. Call placed to [facility] and they are indicating it will be deli qamar by 10:30am today. [facility] ([place]) informed of plans to [place] today. Stretcher gore sport arranged for 2pm today. Paperwork completed, ready for faxing when helmet arrives. 11:00 Notified [place] transport that patient has been discharged and his helmet is her e. 1317 [facility] ([phone]) and they are in route and (possibly here by 4:30), will call us when closer so we can have pt ready for transport. onver alem Transaction, Provider Unknown - 11/23/2014 9:16 AM PST Case Management by Josseline Mera RN at 11/23/14 0916 Author: Josseline Mera RN Service: (none) Author Type: Store Team Leader Filed: 11/23/14 1212 Date of Service: 11/23/14915 Status: Addendum Tubing Mill Setter: Josseline Mera RN (Store Team Leader) Related Notes: Original Note by Josseline Mera RN (Store Team Leader) filed at 11/23/14 0931 Discharge Planning: Phoned Evans's father Jay Jay ([phone]) to discuss DC plans. He indicated that Evans has been living at [facility] and the plan is for him to re turn there when appropriate. He indicated his has been attempting to call but is not g etting through. He began cursing into the phone for someone to come and talk with me, I berenice stephenie for a few moments with more cursing and when no one came on the phone, ended the call. I did call [facility] and they are willing to take Evans back when it is appropriate. Th ey are asking that we arrange transport because of his seizures and spontaneous activity it may not be safe, and that he does not have his helmet here. [place] [facility] Transport ) contacted and they can provide stretcher transport but will need definite time to transport. onver alem Transaction, Provider Unknown - 11/23/2014 8:43 AM PST Nurse Progress Note by Misty Hays RN at 11/23/1443 Author: Misty Hays RN Service: (none) Author Type: Registered Nurse Filed: 11/23/14 1410 Date of Service: 11/23/14842 Status: Addendum [employer] [place] Setter: Misty Hays RN (Registered Nurse) Related Notes: Original Note by Misty Hays RN (Registered Nurse) filed at [id number]: Attempted to call Teressa ([phone]) back to give updates and ask pts helmet to be brought in. Voicemail not set up. 1100: Called both numbers available in the chart in attempt to get helmet for patient. No a nswers from both numbers. 1345: Mother called to get updates on son, speak seemed impaired at time of phone call. Inf ormed her of plan of care. Mother had impaired level of understanding and this RN explained plan of care multiple times. This RN asked if she had the patient's helmet, explained import ance. Mother stated she had picked up the helmet from [facility] and was not planning on co elizabeth to see the patient until Wednesday. Explained the importance of the helmet. Mother did no t seem to understand importance. onver alem Transaction, Provider Unknown - 11/23/2014 6:29 AM PST Progress Notes by Kyrie Payne RPH at 11/23/14628 Author: Kyrie Payne RPH Service: (none) Author Type: Pharmacist Filed: 11/23/14629 Date of Service: 11/23/1429 Status: Signed Tubing Mill Setter: Kyrie Payne RPH (Pharmacist) Scr = 0.6- pharmacy will renal dose as needed once weight is charted. docume stephanieed in this encounter Plan of Treatment +--------+---------+ + + + | Date | Type | Specialty | Care Team | Description | +--------+---------+ + + + | 10/16/ | Office | Orthopedic Surgery | David Lux, | | | 2019 | Visit | | [facility] [address] | | | | | | [facility] [address] | | | | | | [place] [address] | | | | | | [phone] | | | | | | | | +--------+---------+ + + + documented as of this encounter Procedures + +--------+ + + + | Procedure Name | Priori | Date/Time | Associated Diagnosis | Comments | | | ty | | | | + +--------+ + + + | EXTERNAL LAB: CBC | Routin | 11/26/2014 | | Results for this | | | e | 5:40 AM | | procedure are in the | | | | PDT | | results section. | + +--------+ + + + | PHOSPHORUS | Routin | 11/26/2014 | | Results for this | | | e | 5:40 AM | | procedure are in the | | | | PDT | | results section. | + +--------+ + + + | MAGNESIUM | Routin | 11/26/2014 | | Results for this | | | e | 5:40 AM | | procedure are in the | | | | PDT | | results section. | + +--------+ + + + | COMPREHENSIVE | Routin | 11/26/2014 | | Results for this | | METABOLIC PANEL | e | 5:40 AM | | procedure are in the | | | | PDT | | results section. | + +--------+ + + + | EXTERNAL LAB: CBC | Routin | 11/25/2014 | | Results for this | | | e | 5:29 AM | | procedure are in the | | | | PDT | | results section. | + +--------+ + + + | T4, FREE | Routin | 11/25/2014 | | Results for this | | | e | 5:29 AM | | procedure are in the | | | | PDT | | results section. | + +--------+ + + + | PHOSPHORUS | Routin | 11/25/2014 | | Results for this | | | e | 5:29 AM | | procedure are in the | | | | PDT | | results section. | + +--------+ + + + | MAGNESIUM | Routin | 11/25/2014 | | Results for this | | | e | 5:29 AM | | procedure are in the | | | | PDT | | results section. | + +--------+ + + + | COMPREHENSIVE | Routin | 11/25/2014 | | Results for this | | METABOLIC PANEL | e | 5:29 AM | | procedure are in the | | | | PDT | | results section. | + +--------+ + + + | EXTERNAL LAB: CBC | Routin | 11/24/2014 | | Results for this | | | e | 5:53 AM | | procedure are in the | | | | PST | | results section. | + +--------+ + + + | PHOSPHORUS | Routin | 11/24/2014 | | Results for this | | | e | 5:53 AM | | procedure are in the | | | | PST | | results section. | + +--------+ + + + | MAGNESIUM | Routin | 11/24/2014 | | Results for this | | | e | 5:53 AM | | procedure are in the | | | | PST | | results section. | + +--------+ + + + | COMPREHENSIVE | Routin | 11/24/2014 | | Results for this | | METABOLIC PANEL | e | 5:53 AM | | procedure are in the | | | | PST | | results section. | + +--------+ + + + | CT HEAD WO CONTRAST | Routin | 11/23/2014 | | Results for this | | | e | 7:13 AM | | procedure are in the | | | | PST | | results section. | + +--------+ + + + | EXTERNAL LAB: CBC | Routin | 11/23/2014 | | Results for this | | | e | 4:25 AM | | procedure are in the | | | | PST | | results section. | + +--------+ + + + | TSH | Routin | 11/23/2014 | | Results for this | | | e | 4:25 AM | | procedure are in the | | | | PST | | results section. | + +--------+ + + + | PHOSPHORUS | Routin | 11/23/2014 | | Results for this | | | e | 4:25 AM | | procedure are in the | | | | PST | | results section. | + +--------+ + + + | MAGNESIUM | Routin | 11/23/2014 | | Results for this | | | e | 4:25 AM | | procedure are in the | | | | PST | | results section. | + +--------+ + + + | COMPREHENSIVE | Routin | 11/23/2014 | | Results for this | | METABOLIC PANEL | e | 4:25 AM | | procedure are in the | | | | PST | | results section. | + +--------+ + + + | CT HEAD WO CONTRAST | Routin | 11/22/2014 | | Results for this | | | e | 9:08 PM | | procedure are in the | | | | PST | | results section. | + +--------+ + + + | EXTERNAL LAB: CBC | Routin | 11/22/2014 | | Results for this | | | e | 8:44 PM | | procedure are in the | | | | PST | | results section. | + +--------+ + + + | COMPREHENSIVE | Routin | 11/22/2014 | | Results for this | | METABOLIC PANEL | e | 8:44 PM | | procedure are in the | | | | PST | | results section. | + +--------+ + + + documented in this encounter Results External Lab: CBC (11/26/2014 5:40 AM PDT) + + + + + + | Component | Value | Ref Range | Performed | Pathologist | | | | | At | Signature | + + + + + + | WBC | 6.06Comment: Testing | 3.80 - 11.00 | EXTERNAL | | | | performed at [facility], [address] | K[address] | LAB | | | | [address], | | | | | | [place] [address] | | | | + + + + + + | RED CELL | 3.88 (L)Comment: Testing | 4.20 - 5.70 | EXTERNAL | | | COUNT | performed at [facility], [address] | [address] | LAB | | | | [address], | | | | | | [place] [address] | | | | + + + + + + | Hgb | 12.3 (L)Comment: Testing | 13.2 - 17.0 | EXTERNAL | | | | performed at [facility], [address] | g/dL | LAB | | | | [address], | | | | | | [place] [address] | | | | + + + + + + | Hematocrit, | 36.2 (L)Comment: Testing | 39.0 - 50.0 % | EXTERNAL | | | POC | performed at [facility], [address] | | LAB | | | | [address], | | | | | | [place] [address] | | | | + + + + + + | MCV | 93.4Comment: Testing | 80.0 - 100.0 fl | EXTERNAL | | | | performed at [facility], [address] | | LAB | | | | [address], | | | | | | [place] [address] | | | | + + + + + + | MCH | 31.7Comment: Testing | 27.0 - 34.0 pg | EXTERNAL | | | | performed at [facility], [address] | | LAB | | | | [address], | | | | | | [place] [address] | | | | + + + + + + | MCHC | 34.0Comment: Testing | 32.0 - 35.5 | EXTERNAL | | | | performed at [facility], [address] | g/dL | LAB | | | | [address], | | | | | | [place] [address] | | | | + + + + + + | RDW-CV | 46.8Comment: Testing | 37 - 53 fl | EXTERNAL | | | | performed at [facility], [address] | | LAB | | | | [address], | | | | | | [place] [address] | | | | + + + + + + | Platelet | 161Comment: Testing | 150 - 400 K/uL | EXTERNAL | | | Count | performed at [facility], [address] | | LAB | | | Plasma | [address], | | | | | | [place] [address] | | | | + + + + + + | MPV | 8.7Comment: Testing | fl | EXTERNAL | | | | performed at [facility], [address] | | LAB | | | | [address], | | | | | | [place] [address] | | | | + + + + + + | Differentia | AUTOMATEDComment: | | EXTERNAL | | | l Type | Testing performed at | | LAB | | | | [facility], [address] | | | | | | [place] | | | | | | [address] | | | | + + + + + + | % Segmented | 64.56Comment: Testing | % | EXTERNAL | | | | performed at [facility], [address] | | LAB | | | Neutrophils | [address], | | | | | | [place], [place] [address] | | | | + + + + + + | % | 18.74Comment: Testing | % | EXTERNAL | | | Lymphocytes | performed at [facility], [address] | | LAB | | | | [address], | | | | | | [place], [place] [address] | | | | + + + + + + | % Monocytes | 11.05Comment: Testing | % | EXTERNAL | | | | performed at [facility], [address] | | LAB | | | | [address], | | | | | | [place] [address] | | | | + + + + + + | % | 4.94Comment: Testing | % | EXTERNAL | | | Eosinophils | performed at [facility], [address] | | LAB | | | | [address], | | | | | | [place] [address] | | | | + + + + + + | % Basophils | 0.71Comment: Testing | % | EXTERNAL | | | | performed at [facility], [address] | | LAB | | | | [address], | | | | | | [place] [address] | | | | + + + + + + | Absolute | 3.91Comment: Testing | 1.90 - 7.40 | EXTERNAL | | | Segmented | performed at [facility], [address] | K/uL | LAB | | | Neutrophils | [address], | | | | | | [place] [address] | | | | + + + + + + | Absolute | 1.14Comment: Testing | 1.00 - 3.90 | EXTERNAL | | | Lymphocytes | performed at [facility], [address] | K/u[address] | LAB | | | | [address], | | | | | | [place] [address] | | | | + + + + + + | Absolute | 0.67Comment: Testing | 0.00 - 0.80 | EXTERNAL | | | Monocytes | performed at [facility], [address] | K/uL | LAB | | | | [address], | | | | | | [place] [address] | | | | + + + + + + | Absolute | 0.30Comment: Testing | 0.00 - 0.50 | EXTERNAL | | | Eosinophils | performed at [facility], [address] | K/u[address] | LAB | | | | [address], | | | | | | [place] [address] | | | | + + + + + + | Absolute | 0.04Comment: Testing | 0.00 - 0.10 | EXTERNAL | | | Basophils | performed at [facility], [address] | K/[address] | LAB | | | | [address], | | | | | | [place] [address] | | | | + + + + + + + + | Specimen | + + | Blood specimen | | (specimen) | + + + +---------+ + + | Performing | Address | City/State/Zipcode | Phone Number | | Organization | | | | + +---------+ + + | EXTERNAL LAB | | | | + +---------+ + + Phosphorus (11/26/2014 5:40 AM PDT) + + + + + + | Component | Value | Ref Range | Performed | Pathologist | | | | | At | Signature | + + + + + + | PHOSPHORUS | 4.5Comment: Testing | 2.3 - 4.8 mg/dL | EXTERNAL | | | | performed at [facility], [address] | | LAB | | | | [address], | | | | | | [place] [address] | | | | + + + + + + + + | Specimen | + + | Blood specimen | | (specimen) | + + + +---------+ + + | Performing | Address | City/State/Zipcode | Phone Number | | Organization | | | | + +---------+ + + | EXTERNAL LAB | | | | + +---------+ + + Magnesium (11/26/2014 5:40 AM PDT) + + + + + + | Component | Value | Ref Range | Performed | Pathologist | | | | | At | Signature | + + + + + + | Magnesium | 2.0Comment: Testing | 1.7 - 2.4 mg/dL | EXTERNAL | | | | performed at [facility], [address] | | LAB | | | | [address], | | | | | | [place] [address] | | | | + + + + + + + + | Specimen | + + | Blood specimen | | (specimen) | + + + +---------+ + + | Performing | Address | City/State/Zipcode | Phone Number | | Organization | | | | + +---------+ + + | EXTERNAL LAB | | | | + +---------+ + + Comprehensive Metabolic Panel (11/26/2014 5:40 AM PDT) + + + + + + | Component | Value | Ref Range | Performed | Pathologist | | | | | At | Signature | + + + + + + | Na | 136Comment: Testing | 135 - 143 | EXTERNAL | | | | performed at [facility], [address] | mmol/L | LAB | | | | [address], | | | | | | [place] [address] | | | | + + + + + + | K | 3.8Comment: Testing | 3.5 - 4.9 | EXTERNAL | | | | performed at [facility], [address] | mmol/L | LAB | | | | [address], | | | | | | [place] [address] | | | | + + + + + + | Cl | 104Comment: Testing | 99 - 109 mmol/L | EXTERNAL | | | | performed at [facility], [address] | | LAB | | | | [address], | | | | | | [place] [address] | | | | + + + + + + | CO2 | 27Comment: Testing | 23 - 32 mmol/L | EXTERNAL | | | | performed at [facility], [address] | | LAB | | | | [address], | | | | | | [place] [address] | | | | + + + + + + | Anion Gap | 9Comment: Testing | 5 - 20 mmol/L | EXTERNAL | | | | performed at [facility], [address] | | LAB | | | | [address], | | | | | | [place] [address] | | | | + + + + + + | Glucose, | 99Comment: Testing | 65 - 99 mg/dL | EXTERNAL | | | Fasting | performed at [facility], [address] | | LAB | | | | [address], | | | | | | [place] [address] | | | | + + + + + + | BUN | 8Comment: Testing | 8 - 25 mg/dL | EXTERNAL | | | | performed at [facility], [address] | | LAB | | | | [address], | | | | | | [place] [address] | | | | + + + + + + | Creatinine | 0.62 (L)Comment: Testing | 0.70 - 1.30 | EXTERNAL | | | | performed at [facility], [address] | mg/dL | LAB | | | | [address], | | | | | | [place] [address] | | | | + + + + + + | BUN/Creatin | 13Comment: Testing | | EXTERNAL | | | ine Ratio | performed at [facility], [address] | | LAB | | | | [address], | | | | | | [place] [address] | | | | + + + + + + | Calcium | 8.9Comment: Testing | 8.5 - 10.5 | EXTERNAL | | | | performed at [facility], [address] | mg/dL | LAB | | | | [address], | | | | | | [place] [address] | | | | + + + + + + | Protein, | 6.7Comment: Testing | 6.3 - 8.2 g/dL | EXTERNAL | | | Total | performed at [facility], [address] | | LAB | | | | [address], | | | | | | [place] [address] | | | | + + + + + + | Albumin | 3.2 (L)Comment: Testing | 3.6 - 5.0 g/dL | EXTERNAL | | | | performed at [facility], [address] | | LAB | | | | [address], | | | | | | [place] [address] | | | | + + + + + + | Globulin | 3.5Comment: Testing | 1.3 - 4.9 g/dL | EXTERNAL | | | | performed at [facility], [address] | | LAB | | | | [address], | | | | | | [place] [address] | | | | + + + + + + | A/G Ratio | 0.9 (L)Comment: Testing | 1.0 - 2.4 | EXTERNAL | | | | performed at [facility], [address] | | LAB | | | | [address], | | | | | | [place] [address] | | | | + + + + + + | Bilirubin | 0.4Comment: Testing | 0.1 - 1.5 mg/dL | EXTERNAL | | | Total | performed at [facility], [address] | | LAB | | | | [address], | | | | | | [place] [address] | | | | + + + + + + | ALP, | 105Comment: Testing | 35 - 115 U/L | EXTERNAL | | | External | performed at [facility], [address] | | LAB | | | | [address], | | | | | | [place] [address] | | | | + + + + + + | AST | 26Comment: Testing | 10 - 45 U/L | EXTERNAL | | | | performed at [facility], [address] | | LAB | | | | [address], | | | | | | [place] [address] | | | | + + + + + + | ALT | 19Comment: Testing | 10 - 65 U/L | EXTERNAL | | | | performed at [facility], [address] | | LAB | | | | [address], | | | | | | [place] [address] | | | | + + + + + + | Estimated | >60Comment: GFR <60: | mL/min/1.73m2 | EXTERNAL | | | GFR | CHRONIC KIDNEY DISEASE, | | LAB | | | | IF FOUND OVER A 3 MONTH | | | | | | PERIOD.GFR <15: KIDNEY | | | | | | FAILURE.FOR | | | | | | AMERICANS, MULTIPLY THE | | | | | | CALCULATED GFR BY | | | | | | 1.210.Testing performed | | | | | | at [facility], [address] | | | | | | [address], | | | | | | [place] [address] | | | | + + + + + + + + | Specimen | + + | Blood specimen | | (specimen) | + + + +---------+ + + | Performing | Address | City/State/Zipcode | Phone Number | | Organization | | | | + +---------+ + + | EXTERNAL LAB | | | | + +---------+ + + External Lab: CBC (11/25/2014 5:29 AM PDT) + + + + + + | Component | Value | Ref Range | Performed | Pathologist | | | | | At | Signature | + + + + + + | WBC | 6.09Comment: Testing | 3.80 - 11.00 | EXTERNAL | | | | performed at [facility], [address] | K/uL | LAB | | | | [address], | | | | | | [place] [address] | | | | + + + + + + | RED CELL | 4.10 (L)Comment: Testing | 4.20 - 5.70 | EXTERNAL | | | COUNT | performed at [facility], [address] | [address] | LAB | | | | [address], | | | | | | [place] [address] | | | | + + + + + + | Hgb | 12.9 (L)Comment: Testing | 13.2 - 17.0 | EXTERNAL | | | | performed at [facility], [address] | g/dL | LAB | | | | [address], | | | | | | [place] [address] | | | | + + + + + + | Hematocrit, | 38.6 (L)Comment: Testing | 39.0 - 50.0 % | EXTERNAL | | | POC | performed at [facility], [address] | | LAB | | | | [address], | | | | | | [place] [address] | | | | + + + + + + | MCV | 94.2Comment: Testing | 80.0 - 100.0 fl | EXTERNAL | | | | performed at [facility], [address] | | LAB | | | | [address], | | | | | | [place] [address] | | | | + + + + + + | MCH | 31.4Comment: Testing | 27.0 - 34.0 pg | EXTERNAL | | | | performed at [facility], [address] | | LAB | | | | [address], | | | | | | [place] [address] | | | | + + + + + + | MCHC | 33.3Comment: Testing | 32.0 - 35.5 | EXTERNAL | | | | performed at [facility], [address] | g/dL | LAB | | | | [address], | | | | | | [place] [address] | | | | + + + + + + | RDW-CV | 46.8Comment: Testing | 37 - 53 fl | EXTERNAL | | | | performed at [facility], [address] | | LAB | | | | [address], | | | | | | [place] [address] | | | | + + + + + + | Platelet | 161Comment: Testing | 150 - 400 K/uL | EXTERNAL | | | Count | performed at [facility], [address] | | LAB | | | Plasma | [address], | | | | | | [place] [address] | | | | + + + + + + | MPV | 8.9Comment: Testing | fl | EXTERNAL | | | | performed at [facility], [address] | | LAB | | | | [address], | | | | | | [place] [address] | | | | + + + + + + | Differentia | AUTOMATEDComment: | | EXTERNAL | | | l Type | Testing performed at | | LAB | | | | [facility], [address] | | | | | | [place] | | | | | | [address] | | | | + + + + + + | % Segmented | 60.71Comment: Testing | % | EXTERNAL | | | | performed at [facility], [address] | | LAB | | | Neutrophils | [address], | | | | | | [place] [address] | | | | + + + + + + | % | 21.02Comment: Testing | % | EXTERNAL | | | Lymphocytes | performed at [facility], [address] | | LAB | | | | [address], | | | | | | [place] [address] | | | | + + + + + + | % Monocytes | 12.59Comment: Testing | % | EXTERNAL | | | | performed at [facility], [address] | | LAB | | | | [address], | | | | | | [place] [address] | | | | + + + + + + | % | 5.10Comment: Testing | % | EXTERNAL | | | Eosinophils | performed at [facility], [address] | | LAB | | | | [address], | | | | | | [place] [address] | | | | + + + + + + | % Basophils | 0.58Comment: Testing | % | EXTERNAL | | | | performed at [facility], [address] | | LAB | | | | [address], | | | | | | [place] [address] | | | | + + + + + + | Absolute | 3.70Comment: Testing | 1.90 - 7.40 | EXTERNAL | | | Segmented | performed at [facility], [address] | K/uL | LAB | | | Neutrophils | [address], | | | | | | [place] [address] | | | | + + + + + + | Absolute | 1.28Comment: Testing | 1.00 - 3.90 | EXTERNAL | | | Lymphocytes | performed at [facility], [address] | K/uL | LAB | | | | [address], | | | | | | [place] [address] | | | | + + + + + + | Absolute | 0.77Comment: Testing | 0.00 - 0.80 | EXTERNAL | | | Monocytes | performed at [facility], [address] | K/uL | LAB | | | | [address], | | | | | | [place] [address] | | | | + + + + + + | Absolute | 0.31Comment: Testing | 0.00 - 0.50 | EXTERNAL | | | Eosinophils | performed at [facility], [address] | K/uL | LAB | | | | [address], | | | | | | [place] [address] | | | | + + + + + + | Absolute | 0.04Comment: Testing | 0.00 - 0.10 | EXTERNAL | | | Basophils | performed at [facility], [address] | K/[address] | LAB | | | | [address], | | | | | | [place] [address] | | | | + + + + + + + + | Specimen | + + | Blood specimen | | (specimen) | + + + +---------+ + + | Performing | Address | City/State/Zipcode | Phone Number | | Organization | | | | + +---------+ + + | EXTERNAL LAB | | | | + +---------+ + + T4, Free (11/25/2014 5:29 AM PDT) + + + + + + | Component | Value | Ref Range | Performed | Pathologist | | | | | At | Signature | + + + + + + | FREE T4 | 0.9Comment: Testing | 0.7 - 1.5 ng/dL | EXTERNAL | | | (REF) | performed at [facility], [address] | | LAB | | | | [address], | | | | | | [place] [address] | | | | + + + + + + + + | Specimen | + + | Blood specimen | | (specimen) | + + + +---------+ + + | Performing | Address | City/State/Zipcode | Phone Number | | Organization | | | | + +---------+ + + | EXTERNAL LAB | | | | + +---------+ + + Phosphorus (11/25/2014 5:29 AM PDT) + + + + + + | Component | Value | Ref Range | Performed | Pathologist | | | | | At | Signature | + + + + + + | PHOSPHORUS | 5.4 (H)Comment: Testing | 2.3 - 4.8 mg/dL | EXTERNAL | | | | performed at [facility], [address] | | LAB | | | | [address], | | | | | | [place] [address] | | | | + + + + + + + + | Specimen | + + | Blood specimen | | (specimen) | + + + +---------+ + + | Performing | Address | City/State/Zipcode | Phone Number | | Organization | | | | + +---------+ + + | EXTERNAL LAB | | | | + +---------+ + + Magnesium (11/25/2014 5:29 AM PDT) + + + + + + | Component | Value | Ref Range | Performed | Pathologist | | | | | At | Signature | + + + + + + | Magnesium | 2.0Comment: Testing | 1.7 - 2.4 mg/dL | EXTERNAL | | | | performed at [facility], [address] | | LAB | | | | [address], | | | | | | [place] [address] | | | | + + + + + + + + | Specimen | + + | Blood specimen | | (specimen) | + + + +---------+ + + | Performing | Address | City/State/Zipcode | Phone Number | | Organization | | | | + +---------+ + + | EXTERNAL LAB | | | | + +---------+ + + Comprehensive Metabolic Panel (11/25/2014 5:29 AM PDT) + + + + + + | Component | Value | Ref Range | Performed | Pathologist | | | | | At | Signature | + + + + + + | Na | 136Comment: Testing | 135 - 143 | EXTERNAL | | | | performed at [facility], [address] | mmol/L | LAB | | | | [place], | | | | | | [place] [address] | | | | + + + + + + | K | 3.8Comment: Testing | 3.5 - 4.9 | EXTERNAL | | | | performed at [facility], [address] | mmol/L | LAB | | | | [address], | | | | | | [place] [address] | | | | + + + + + + | Cl | 104Comment: Testing | 99 - 109 mmol/L | EXTERNAL | | | | performed at [facility], [address] | | LAB | | | | [address], | | | | | | [place] [address] | | | | + + + + + + | CO2 | 28Comment: Testing | 23 - 32 mmol/L | EXTERNAL | | | | performed at [facility], [address] | | LAB | | | | [address], | | | | | | [place] [address] | | | | + + + + + + | Anion Gap | 8Comment: Testing | 5 - 20 mmol/L | EXTERNAL | | | | performed at [facility], [address] | | LAB | | | | [address], | | | | | | [place] [address] | | | | + + + + + + | Glucose, | 107 (H)Comment: Testing | 65 - 99 mg/dL | EXTERNAL | | | Fasting | performed at [facility], [address] | | LAB | | | | [address], | | | | | | [place] [address] | | | | + + + + + + | BUN | 6 (L)Comment: Testing | 8 - 25 mg/dL | EXTERNAL | | | | performed at [facility], [address] | | LAB | | | | [address], | | | | | | [place] [address] | | | | + + + + + + | Creatinine | 0.59 (L)Comment: Testing | 0.70 - 1.30 | EXTERNAL | | | | performed at [facility], [address] | mg/dL | LAB | | | | [address], | | | | | | [place] [address] | | | | + + + + + + | BUN/Creatin | 10Comment: Testing | | EXTERNAL | | | ine Ratio | performed at [facility], [address] | | LAB | | | | [address], | | | | | | [place] [address] | | | | + + + + + + | Calcium | 9.2Comment: Testing | 8.5 - 10.5 | EXTERNAL | | | | performed at [facility], [address] | mg/dL | LAB | | | | [address], | | | | | | [place] [address] | | | | + + + + + + | Protein, | 7.0Comment: Testing | 6.3 - 8.2 g/dL | EXTERNAL | | | Total | performed at [facility], [address] | | LAB | | | | [address], | | | | | | [place] [address] | | | | + + + + + + | Albumin | 3.4 (L)Comment: Testing | 3.6 - 5.0 g/dL | EXTERNAL | | | | performed at [facility], [address] | | LAB | | | [address], | | | | | | [place] [address] | | | | + + + + + + | Globulin | 3.6Comment: Testing | 1.3 - 4.9 g/dL | EXTERNAL | | | | performed at [facility], [address] | | LAB | | | [address], | | | | | | [place] [address] | | | | + + + + + + | A/G Ratio | 0.9 (L)Comment: Testing | 1.0 - 2.4 | EXTERNAL | | | | performed at [facility], [address] | | LAB | | | | [address], | | | | | | [place] [address] | | | | + + + + + + | Bilirubin | 0.5Comment: Testing | 0.1 - 1.5 mg/dL | EXTERNAL | | | Total | performed at [facility], [address] | | LAB | | | | [address], | | | | | | [place] [address] | | | | + + + + + + | ALP, | 115Comment: Testing | 35 - 115 U/L | EXTERNAL | | | External | performed at [facility], [address] | | LAB | | | | [address], | | | | | | [place] [address] | | | | + + + + + + | AST | 27Comment: Testing | 10 - 45 U/L | EXTERNAL | | | | performed at [facility], [address] | | LAB | | | | [address], | | | | | | [place] [address] | | | | + + + + + + | ALT | 21Comment: Testing | 10 - 65 U/L | EXTERNAL | | | | performed at [facility], [address] | | LAB | | | | [facility], | | | | | | [place] [address] | | | | + + + + + + | Estimated | >60Comment: GFR <60: | mL/min/1.73m2 | EXTERNAL | | | GFR | CHRONIC KIDNEY DISEASE, | | LAB | | | | IF FOUND OVER A 3 MONTH | | | | | | PERIOD.GFR <15: KIDNEY | | | | | | FAILURE.FOR | | | | | | AMERICANS, MULTIPLY THE | | | | | | CALCULATED GFR BY | | | | | | 1.210.Testing performed | | | | | | at [facility], [address] | | | | | | [facility], | | | | | | [place] [address] | | | | + + + + + + + + | Specimen | + + | Blood specimen | | (specimen) | + + + +---------+ + + | Performing | Address | City/State/Zipcode | Phone Number | | Organization | | | | + +---------+ + + | EXTERNAL LAB | | | | + +---------+ + + External Lab: CBC (11/24/2014 5:53 AM PST) + + + + + + | Component | Value | Ref Range | Performed | Pathologist | | | | | At | Signature | + + + + + + | WBC | 7.24Comment: Testing | 3.80 - 11.00 | EXTERNAL | | | | performed at [facility], [address] | K/uL | LAB | | | | [address], | | | | | | [place] [address] | | | | + + + + + + | RED CELL | 4.01 (L)Comment: Testing | 4.20 - 5.70 | EXTERNAL | | | COUNT | performed at [facility], [address] | M/uL | LAB | | | | [address], | | | | | | [place] [address] | | | | + + + + + + | Hgb | 12.3 (L)Comment: Testing | 13.2 - 17.0 | EXTERNAL | | | | performed at [facility], [address] | g/dL | LAB | | | | [address], | | | | | | [place] [address] | | | | + + + + + + | Hematocrit, | 37.8 (L)Comment: Testing | 39.0 - 50.0 % | EXTERNAL | | | POC | performed at [facility], [address] | | LAB | | | | [address], | | | | | | [place] [address] | | | | + + + + + + | MCV | 94.3Comment: Testing | 80.0 - 100.0 fl | EXTERNAL | | | | performed at [facility], [address] | | LAB | | | | [address], | | | | | | [place] [address] | | | | + + + + + + | MCH | 30.6Comment: Testing | 27.0 - 34.0 pg | EXTERNAL | | | | performed at [facility], [address] | | LAB | | | | [address], | | | | | | [place] [address] | | | | + + + + + + | MCHC | 32.4Comment: Testing | 32.0 - 35.5 | EXTERNAL | | | | performed at [facility], [address] | g/dL | LAB | | | | [address], | | | | | | [place] [address] | | | | + + + + + + | RDW-CV | 47.7Comment: Testing | 37 - 53 fl | EXTERNAL | | | | performed at [facility], [address] | | LAB | | | | [address], | | | | | | [place] [address] | | | | + + + + + + | Platelet | 153Comment: Testing | 150 - 400 K/uL | EXTERNAL | | | Count | performed at [facility], [address] | | LAB | | | Plasma | [address], | | | | | | [place] [address] | | | | + + + + + + | MPV | 9.0Comment: Testing | fl | EXTERNAL | | | | performed at [facility], [address] | | LAB | | | | [address], | | | | | | [place] [address] | | | | + + + + + + | Differentia | AUTOMATEDComment: | | EXTERNAL | | | l Type | Testing performed at | | LAB | | | | [facility], [address] | | | | | | [place] | | | | | | [address] | | | | + + + + + + | % Segmented | 70.29Comment: Testing | % | EXTERNAL | | | | performed at [facility], [address] | | LAB | | | Neutrophils | [address], | | | | | | [place] [address] | | | | + + + + + + | % | 14.74Comment: Testing | % | EXTERNAL | | | Lymphocytes | performed at [facility], [address] | | LAB | | | | [address], | | | | | | [place] [address] | | | | + + + + + + | % Monocytes | 10.97Comment: Testing | % | EXTERNAL | | | | performed at [facility], [address] | | LAB | | | | [address], | | | | | | [place] [address] | | | | + + + + + + | % | 3.52Comment: Testing | % | EXTERNAL | | | Eosinophils | performed at [facility], [address] | | LAB | | | | [address], | | | | | | [place] [address] | | | | + + + + + + | % Basophils | 0.48Comment: Testing | % | EXTERNAL | | | | performed at [facility], [address] | | LAB | | | | [address], | | | | | | [place] [address] | | | | + + + + + + | Absolute | 5.09Comment: Testing | 1.90 - 7.40 | EXTERNAL | | | Segmented | performed at [facility], [address] | K/uL | LAB | | | Neutrophils | [address], | | | | | | [place] [address] | | | | + + + + + + | Absolute | 1.07Comment: Testing | 1.00 - 3.90 | EXTERNAL | | | Lymphocytes | performed at [facility], [address] | K/uL | LAB | | | | [address], | | | | | | [place] [address] | | | | + + + + + + | Absolute | 0.79Comment: Testing | 0.00 - 0.80 | EXTERNAL | | | Monocytes | performed at [facility], [address] | K/uL | LAB | | | | [address], | | | | | | [place] [address] | | | | + + + + + + | Absolute | 0.26Comment: Testing | 0.00 - 0.50 | EXTERNAL | | | Eosinophils | performed at [facility], [address] | K/uL | LAB | | | | [address], | | | | | | [place] [address] | | | | + + + + + + | Absolute | 0.03Comment: Testing | 0.00 - 0.10 | EXTERNAL | | | Basophils | performed at [facility], [address] | K/uL | LAB | | | | [address], | | | | | | [place] [address] | | | | + + + + + + + + | Specimen | + + | Blood specimen | | (specimen) | + + + +---------+ + + | Performing | Address | City/State/Zipcode | Phone Number | | Organization | | | | + +---------+ + + | EXTERNAL LAB | | | | + +---------+ + + Phosphorus (11/24/2014 5:53 AM PST) + + + + + + | Component | Value | Ref Range | Performed | Pathologist | | | | | At | Signature | + + + + + + | PHOSPHORUS | 5.7 (H)Comment: Testing | 2.3 - 4.8 mg/dL | EXTERNAL | | | | performed at [facility], [address] | | LAB | | | | [address], | | | | | | [place] [address] | | | | + + + + + + + + | Specimen | + + | Blood specimen | | (specimen) | + + + +---------+ + + | Performing | Address | City/State/Zipcode | Phone Number | | Organization | | | | + +---------+ + + | EXTERNAL LAB | | | | + +---------+ + + Magnesium (11/24/2014 5:53 AM PST) + + + + + + | Component | Value | Ref Range | Performed | Pathologist | | | | | At | Signature | + + + + + + | Magnesium | 2.0Comment: Testing | 1.7 - 2.4 mg/dL | EXTERNAL | | | | performed at [facility], [address] | | LAB | | | | [address], | | | | | | [place] [address] | | | | + + + + + + + + | Specimen | + + | Blood specimen | | (specimen) | + + + +---------+ + + | Performing | Address | City/State/Zipcode | Phone Number | | Organization | | | | + +---------+ + + | EXTERNAL LAB | | | | + +---------+ + + Comprehensive Metabolic Panel (11/24/2014 5:53 AM PST) + + + + + + | Component | Value | Ref Range | Performed | Pathologist | | | | | At | Signature | + + + + + + | Na | 135Comment: Testing | 135 - 143 | EXTERNAL | | | | performed at [facility], [address] | mmol/L | LAB | | | | [address], | | | | | | [place] [address] | | | | + + + + + + | K | 4.0Comment: Testing | 3.5 - 4.9 | EXTERNAL | | | | performed at [facility], [address] | mmol/L | LAB | | | | [address], | | | | | | [place] [address] | | | | + + + + + + | Cl | 102Comment: Testing | 99 - 109 mmol/L | EXTERNAL | | | | performed at [facility], [address] | | LAB | | | | [address], | | | | | | [place] [address] | | | | + + + + + + | CO2 | 26Comment: Testing | 23 - 32 mmol/L | EXTERNAL | | | | performed at [facility], [address] | | LAB | | | | [address], | | | | | | [place] [address] | | | | + + + + + + | Anion Gap | 11Comment: Testing | 5 - 20 mmol/L | EXTERNAL | | | | performed at [facility], [address] | | LAB | | | | [address], | | | | | | [place] [address] | | | | + + + + + + | Glucose, | 103 (H)Comment: Testing | 65 - 99 mg/dL | EXTERNAL | | | Fasting | performed at [facility], [address] | | LAB | | | | [address], | | | | | | [place] [address] | | | | + + + + + + | BUN | 6 (L)Comment: Testing | 8 - 25 mg/dL | EXTERNAL | | | | performed at [facility], [address] | | LAB | | | | [address], | | | | | | [place] [address] | | | | + + + + + + | Creatinine | 0.63 (L)Comment: Testing | 0.70 - 1.30 | EXTERNAL | | | | performed at [facility], [address] | mg/dL | LAB | | | | [address], | | | | | | [place] [address] | | | | + + + + + + | BUN/Creatin | 10Comment: Testing | | EXTERNAL | | | ine Ratio | performed at [facility], [address] | | LAB | | | | [address], | | | | | | [place] [address] | | | | + + + + + + | Calcium | 9.3Comment: Testing | 8.5 - 10.5 | EXTERNAL | | | | performed at [facility], [address] | mg/dL | LAB | | | | [address], | | | | | | [place] [address] | | | | + + + + + + | Protein, | 6.9Comment: Testing | 6.3 - 8.2 g/dL | EXTERNAL | | | Total | performed at [facility], [address] | | LAB | | | | [address], | | | | | | [place] [address] | | | | + + + + + + | Albumin | 3.5 (L)Comment: Testing | 3.6 - 5.0 g/dL | EXTERNAL | | | | performed at [facility], [address] | | LAB | | | | [address], | | | | | | [place] [address] | | | | + + + + + + | Globulin | 3.4Comment: Testing | 1.3 - 4.9 g/dL | EXTERNAL | | | | performed at [facility], [address] | | LAB | | | | [address], | | | | | | [place] [address] | | | | + + + + + + | A/G Ratio | 1.0Comment: Testing | 1.0 - 2.4 | EXTERNAL | | | | performed at [facility], [address] | | LAB | | | | [address], | | | | | | [place] [address] | | | | + + + + + + | Bilirubin | 0.5Comment: Testing | 0.1 - 1.5 mg/dL | EXTERNAL | | | Total | performed at [facility], [address] | | LAB | | | | [address], | | | | | | [place] [address] | | | | + + + + + + | ALP, | 103Comment: Testing | 35 - 115 U/L | EXTERNAL | | | External | performed at [facility], [address] | | LAB | | | | [address], | | | | | | [place] [address] | | | | + + + + + + | AST | 27Comment: Testing | 10 - 45 U/L | EXTERNAL | | | | performed at [facility], [address] | | LAB | | | | [address], | | | | | | [place] [address] | | | | + + + + + + | ALT | 23Comment: Testing | 10 - 65 U/L | EXTERNAL | | | | performed at [facility], [address] | | LAB | | | | [facility], | | | | | | [place] [address] | | | | + + + + + + | Estimated | >60Comment: GFR <60: | mL/min/1.73m2 | EXTERNAL | | | GFR | CHRONIC KIDNEY DISEASE, | | LAB | | | | IF FOUND OVER A 3 MONTH | | | | | | PERIOD.GFR <15: KIDNEY | | | | | | FAILURE.FOR | | | | | | AMERICANS, MULTIPLY THE | | | | | | CALCULATED GFR BY | | | | | | 1.210.Testing performed | | | | | | at [facility], [address] | | | | | | [facility], | | | | | | [place] [address] | | | | + + + + + + + + | Specimen | + + | Blood specimen | | (specimen) | + + + +---------+ + + | Performing | Address | City/State/Zipcode | Phone Number | | Organization | | | | + +---------+ + + | EXTERNAL LAB | | | | + +---------+ + + CT Head wo Contrast (11/23/2014 7:13 AM PST) + + | Specimen | + + | | + + + + + | Impressions | Performed At | + + + | 1. There is developing decreased attenuation along the right | | | supratentorial cerebral hemisphere. The imaging findings are | | | concerning for possible right MCA distribution ischemia in the | | | appropriate clinical context. Alternatively, this may reflect some | | | increasing vasogenic edema related to recent subdural hemorrhage and | | | postoperative change. If indicated, further evaluation with MRI could | | | be performed. Electronically signed by Lawrence Jenkins MD on | | | 11/23/2014 7:20 AM | | + + + + + + | Narrative | Performed At | + + + | KRUEGER SHAYLA [address] HEAD WO CONTRAST | | | 11/23/2014 7:13 AM INDICATION: Altered mental status, hemorrhage | | | COMPARISON: 11/22/14 TECHNIQUE: CT scan of the head without | | | contrast. 5-mm axial noncontrast images were acquired from the | | | foramen magnum through the cranial vertex. FINDINGS: On recreation professor | | | imaging, there is normal craniocervical alignment with no prevertebral | | | soft tissue swelling. There is no tonsillar herniation present. | | | Postsurgical changes are present from a right frontal temporal | | | craniectomy. No uncal herniation is demonstrated. There is | | | demonstration of decreased attenuation of the right temporal lobe and | | | right frontal lobe. The degree of slight loss of cortical | | | differentiation is slightly more pronounced on today's examination and | | | larger. There is relative sparing of the medial margin of the right | | | cerebral hemisphere. There is minimal 3 mm right to left midline | | | shift. The ventricular system is normal in size. Minimal soft tissue | | | attenuation is noted along the craniectomy defect which may reflect | | | some residual subdural blood. The parotid glands are normal. The | | | orbits and globes are normal in appearance. The mastoid air cells | | | are well aerated. The paranasal sinuses are clear. | | + + + + + | Procedure Note | + + | Rosalio, Rad Conversion - 05/05/2019 12:20 AM PDT [place] years | | MaleCT HEAD WO CONTRAST11/23/2014 7:13 AM INDICATION: Altered mental status, hemorrhage | | COMPARISON: 11/22/14 TECHNIQUE: CT scan of the head without contrast. 5-mm axial | | noncontrast images were acquired from the foramen magnum through the cranial vertex. | | FINDINGS: On recreation professor imaging, there is normal craniocervical alignment with no | | prevertebral soft tissue swelling. There is no tonsillar herniation present. | | Postsurgical changes are present from a right frontal temporal craniectomy. No uncal | | herniation is demonstrated. There is demonstration of decreased attenuation of the right | | temporal lobe and right frontal lobe. The degree of slight loss of cortical | | differentiation is slightly more pronounced on today's examination and larger. There is | | relative sparing of the medial margin of the right cerebral hemisphere. There is minimal | | 3 mm right to left midline shift. The ventricular system is normal in size. Minimal | | soft tissue attenuation is noted along the craniectomy defect which may reflect some | | residual subdural blood. The parotid glands are normal. The orbits and globes are normal | | in appearance. The mastoid air cells are well aerated. The paranasal sinuses are clear. | | IMPRESSION: 1. There is developing decreased attenuation along the right | | supratentorial cerebral hemisphere. The imaging findings are concerning for possible | | right MCA distribution ischemia in the appropriate clinical context. Alternatively, this | | may reflect some increasing vasogenic edema related to recent subdural hemorrhage and | | postoperative change. If indicated, further evaluation with MRI could be performed. | | | |IMPRESSION: | |1. There is developing decreased attenuation along the right supratentorial cerebral hemis phere. The imaging findings are concerning for possible right MCA distribution ischemia in t he appropriate clinical | |context. Alternatively, this may reflect some | |increasing vasogenic edema related to recent subdural hemorrhage and postoperative change. If indicated, further evaluation with MRI could be performed. | | | | | + + External Lab: [facility] (11/23/2014 4:25 AM PST) + + + + + + | Component | Value | Ref Range | Performed | Pathologist | | | | | At | Signature | + + + + + + | WBC | 8.55Comment: Testing | 3.80 - 11.00 | EXTERNAL | | | | performed at [facility], [address] | K/uL | LAB | | | | [address], | | | | | | [place] [address] | | | | + + + + + + | RED CELL | 4.01 (L)Comment: Testing | 4.20 - 5.70 | EXTERNAL | | | COUNT | performed at [facility], [address] | M/uL | LAB | | | | [address], | | | | | | [place] [address] | | | | + + + + + + | Hgb | 12.5 (L)Comment: Testing | 13.2 - 17.0 | EXTERNAL | | | | performed at [facility], [address] | g/dL | LAB | | | | [address], | | | | | | [place] [address] | | | | + + + + + + | Hematocrit, | 38.0 (L)Comment: Testing | 39.0 - 50.0 % | EXTERNAL | | | POC | performed at [facility], [address] | | LAB | | | | [address], | | | | | | [place] [address] | | | | + + + + + + | MCV | 94.9Comment: Testing | 80.0 - 100.0 fl | EXTERNAL | | | | performed at [facility], [address] | | LAB | | | | [address], | | | | | | [place] [address] | | | | + + + + + + | MCH | 31.2Comment: Testing | 27.0 - 34.0 pg | EXTERNAL | | | | performed at [facility], [address] | | LAB | | | | [address], | | | | | | [place] [address] | | | | + + + + + + | MCHC | 32.9Comment: Testing | 32.0 - 35.5 | EXTERNAL | | | | performed at [facility], [address] | g/dL | LAB | | | | [address], | | | | | | [place] [address] | | | | + + + + + + | RDW-CV | 47.3Comment: Testing | 37 - 53 fl | EXTERNAL | | | | performed at [facility], [address] | | LAB | | | | [address], | | | | | | [place] [address] | | | | + + + + + + | Platelet | 171Comment: Testing | 150 - 400 K/uL | EXTERNAL | | | Count | performed at [facility], [address] | | LAB | | | Plasma | [address], | | | | | | [place] [address] | | | | + + + + + + | MPV | 8.8Comment: Testing | fl | EXTERNAL | | | | performed at [facility], [address] | | LAB | | | | [address], | | | | | | [place] [address] | | | | + + + + + + | Differentia | AUTOMATEDComment: | | EXTERNAL | | | l Type | Testing performed at | | LAB | | | | [facility], [address] | | | | | | [place] | | | | | | [address] | | | | + + + + + + | % Segmented | 67.69Comment: Testing | % | EXTERNAL | | | | performed at [facility], [address] | | LAB | | | Neutrophils | [address], | | | | | | [place] [address] | | | | + + + + + + | % | 20.09Comment: Testing | % | EXTERNAL | | | Lymphocytes | performed at [facility], [address] | | LAB | | | | [address], | | | | | | [place] [address] | | | | + + + + + + | % Monocytes | 9.27Comment: Testing | % | EXTERNAL | | | | performed at [facility], [address] | | LAB | | | | [address], | | | | | | [place] [address] | | | | + + + + + + | % | 2.66Comment: Testing | % | EXTERNAL | | | Eosinophils | performed at [facility], [address] | | LAB | | | | [address], | | | | | | [place] [address] | | | | + + + + + + | % Basophils | 0.29Comment: Testing | % | EXTERNAL | | | | performed at [facility], [address] | | LAB | | | | [address], | | | | | | [place] [address] | | | | + + + + + + | Absolute | 5.79Comment: Testing | 1.90 - 7.40 | EXTERNAL | | | Segmented | performed at [facility], [address] | K/uL | LAB | | | Neutrophils | [address], | | | | | | [place] [address] | | | | + + + + + + | Absolute | 1.72Comment: Testing | 1.00 - 3.90 | EXTERNAL | | | Lymphocytes | performed at [facility], [address] | K/uL | LAB | | | | [address], | | | | | | [place] [address] | | | | + + + + + + | Absolute | 0.79Comment: Testing | 0.00 - 0.80 | EXTERNAL | | | Monocytes | performed at [facility], [address] | K/uL | LAB | | | | [address], | | | | | | [place] [address] | | | | + + + + + + | Absolute | 0.23Comment: Testing | 0.00 - 0.50 | EXTERNAL | | | Eosinophils | performed at [facility], [address] | K/uL | LAB | | | | [address], | | | | | | [place] [address] | | | | + + + + + + | Absolute | 0.03Comment: Testing | 0.00 - 0.10 | EXTERNAL | | | Basophils | performed at [facility], [address] | K/uL | LAB | | | | [address], | | | | | | [place] [address] | | | | + + + + + + + + | Specimen | + + | Blood specimen | | (specimen) | + + + +---------+ + + | Performing | Address | City/State/Zipcode | Phone Number | | Organization | | | | + +---------+ + + | EXTERNAL LAB | | | | + +---------+ + + TSH (11/23/2014 4:25 AM PST) + + + + + + | Component | Value | Ref Range | Performed | Pathologist | | | | | At | Signature | + + + + + + | TSH | 12.42 (H)Comment: | 0.45 - 5.10 | EXTERNAL | | | | Testing performed at | uIU/mL | LAB | | | | [facility], [address] [facility] | | | | | | [place] | | | | | | [address] | | | | + + + + + + + + | Specimen | + + | Blood specimen | | (specimen) | + + + +---------+ + + | Performing | Address | City/State/Zipcode | Phone Number | | Organization | | | | + +---------+ + + | EXTERNAL LAB | | | | + +---------+ + + Phosphorus (11/23/2014 4:25 AM PST) + + + + + + | Component | Value | Ref Range | Performed | Pathologist | | | | | At | Signature | + + + + + + | PHOSPHORUS | 4.7Comment: Testing | 2.3 - 4.8 mg/dL | EXTERNAL | | | | performed at [facility], [address] | | LAB | | | | [address], | | | | | | [place] [address] | | | | + + + + + + + + | Specimen | + + | Blood specimen | | (specimen) | + + + +---------+ + + | Performing | Address | City/State/Zipcode | Phone Number | | Organization | | | | + +---------+ + + | EXTERNAL LAB | | | | + +---------+ + + Magnesium (11/23/2014 4:25 AM PST) + + + + + + | Component | Value | Ref Range | Performed | Pathologist | | | | | At | Signature | + + + + + + | Magnesium | 2.0Comment: Testing | 1.7 - 2.4 mg/dL | EXTERNAL | | | | performed at [facility], [address] | | LAB | | | | [address], | | | | | | [place] [address] | | | | + + + + + + + + | Specimen | + + | Blood specimen | | (specimen) | + + + +---------+ + + | Performing | Address | City/State/Zipcode | Phone Number | | Organization | | | | + +---------+ + + | EXTERNAL LAB | | | | + +---------+ + + Comprehensive Metabolic Panel (11/23/2014 4:25 AM PST) + + + + + + | Component | Value | Ref Range | Performed | Pathologist | | | | | At | Signature | + + + + + + | Na | 136Comment: Testing | 135 - 143 | EXTERNAL | | | | performed at [facility], [address] | mmol/L | LAB | | | | [address], | | | | | | [place] [id number] | | | | + + + + + + | K | 4.2Comment: Testing | 3.5 - 4.9 | EXTERNAL | | | | performed at [facility], [address] | mmol/L | LAB | | | | [address], | | | | | | [place] [address] | | | | + + + + + + | Cl | 102Comment: Testing | 99 - 109 mmol/L | EXTERNAL | | | | performed at [facility], [address] | | LAB | | | | [address], | | | | | | [place] [address] | | | | + + + + + + | CO2 | 25Comment: Testing | 23 - 32 mmol/L | EXTERNAL | | | | performed at [facility], [address] | | LAB | | | | [address], | | | | | | [place] [address] | | | | + + + + + + | Anion Gap | 13Comment: Testing | 5 - 20 mmol/L | EXTERNAL | | | | performed at [facility], [address] | | LAB | | | | [address], | | | | | | [place] [address] | | | | + + + + + + | Glucose, | 113 (H)Comment: Testing | 65 - 99 mg/dL | EXTERNAL | | | Fasting | performed at [facility], [address] | | LAB | | | | [address], | | | | | | [place] [address] | | | | + + + + + + | BUN | 4 (L)Comment: Testing | 8 - 25 mg/dL | EXTERNAL | | | | performed at [facility], [address] | | LAB | | | [address], | | | | | | [place] [address] | | | | + + + + + + | Creatinine | 0.60 (L)Comment: Testing | 0.70 - 1.30 | EXTERNAL | | | | performed at [facility], [address] | mg/dL | LAB | | | | [address], | | | | | | [place] [address] | | | | + + + + + + | BUN/Creatin | 7Comment: Testing | | EXTERNAL | | | ine Ratio | performed at [facility], [address] | | LAB | | | | [address], | | | | | | [place] [address] | | | | + + + + + + | Calcium | 9.4Comment: Testing | 8.5 - 10.5 | EXTERNAL | | | | performed at [facility], [address] | mg/dL | LAB | | | | [address], | | | | | | [place] [address] | | | | + + + + + + | Protein, | 7.3Comment: Testing | 6.3 - 8.2 g/dL | EXTERNAL | | | Total | performed at [facility], [address] | | LAB | | | | [address], | | | | | | [place] [address] | | | | + + + + + + | Albumin | 3.7Comment: Testing | 3.6 - 5.0 g/dL | EXTERNAL | | | | performed at [facility], [address] | | LAB | | | | [address], | | | | | | [place] [address] | | | | + + + + + + | Globulin | 3.6Comment: Testing | 1.3 - 4.9 g/dL | EXTERNAL | | | | performed at [facility], [address] | | LAB | | | | [address], | | | | | | [place] [address] | | | | + + + + + + | A/G Ratio | 1.0Comment: Testing | 1.0 - 2.4 | EXTERNAL | | | | performed at [facility], [address] | | LAB | | | [address], | | | | | | [place] [address] | | | | + + + + + + | Bilirubin | 0.5Comment: Testing | 0.1 - 1.5 mg/dL | EXTERNAL | | | Total | performed at [facility], [address] | | LAB | | | | [address], | | | | | | [place] [address] | | | | + + + + + + | ALP, | 104Comment: Testing | 35 - 115 U/L | EXTERNAL | | | External | performed at [facility], [address] | | LAB | | | | [address], | | | | | | [place] [address] | | | | + + + + + + | AST | 36Comment: Testing | 10 - 45 U/L | EXTERNAL | | | | performed at [facility], [address] | | LAB | | | | [address], | | | | | | [place] [address] | | | | + + + + + + | ALT | 26Comment: Testing | 10 - 65 U/L | EXTERNAL | | | | performed at [facility], [address] | | LAB | | | | [address], | | | | | | [place] [address] | | | | + + + + + + | Estimated | >60Comment: GFR <60: | mL/min/1.73m2 | EXTERNAL | | | GFR | CHRONIC KIDNEY DISEASE, | | LAB | | | | IF FOUND OVER A 3 MONTH | | | | | | PERIOD.GFR <15: KIDNEY | | | | | | FAILURE.FOR | | | | | | AMERICANS, MULTIPLY THE | | | | | | CALCULATED GFR BY | | | | | | 1.210.Testing performed | | | | | | at [facility], [address] | | | | | | [address], | | | | | | [place] [address] | | | | + + + + + + + + | Specimen | + + | Blood specimen | | (specimen) | + + + +---------+ + + | Performing | Address | City/State/Zipcode | Phone Number | | Organization | | | | + +---------+ + + | EXTERNAL LAB | | | | + +---------+ + + CT Head wo Contrast (11/22/2014 9:08 PM PST) + + | Specimen | + + | | + + + + + | Impressions | Performed At | + + + | 1. Biconvex hyperdense extra-axial fluid collection suggesting a | | | small subdural hematoma adjacent to the anterior margin of the | | | right-sided craniectomy site currently measuring 9 x 18 mm compared | | | with 9 x 14 mm 10/17/2014. This may indicate persistent venous | | | oozing. It is not producing any significant mass effect. 2. | | | Otherwise largely normal CT scan of the head post right craniectomy. | | | | | + + + + + + | Narrative | Performed At | + + + | [facility] 11/22/2014 9:08 PM HISTORY: | | | 53 years. Male. Subdural hematoma. TECHNIQUE: 5-mm axial | | | noncontrast images were acquired from the foramen magnum through the | | | cranial vertex. COMPARISON: CT head noncontrast 11/22/2014 | | | performed at [facility] 10/14/2014 FINDINGS: An | | | extensive right-sided craniectomy is noted. A small hyperdense | | | extra-axial fluid collection is seen in the anterior margin of the | | | craniectomy adjacent to the right frontal lobe measuring 9 x 18 mm, | | | increased from 9 x 14 mm on 10/17/2014. This does not produce any | | | significant mass effect on the adjacent right frontal lobe. Dural | | | repair material is seen overlying the brain parenchyma at the | | | craniectomy site with some areas of calcification and increased | | | density. This does not represent a subdural hematoma. Linear | | | hyperdense material is also seen at the lateral margin of the right | | | middle cranial fossa which may represent Surgicel or some other type | | | of hemostatic material which is unchanged since 2014. | | | Again this does not appear to represent a definite subdural | | | hematoma. The brain parenchyma is otherwise normal in attenuation. | | | No midline shift is seen. The ventricles are normal in size. No | | | signs of hyperacute stroke including loss of the insular ribbon or | | | dense middle cerebral artery sign are noted. The orbits and their | | | contents are normal. The paranasal sinuses are well aerated. No | | | mucosal thickening or air-fluid levels are noted. The mastoid air | | | cells show normal pneumatization bilaterally. No mastoid fluid | | | noted. The osseous structures of the calvaria do not demonstrate | | | fracture. No lytic or blastic lesions are noted. | | + + + + + | Procedure Note | + + | Rosalio, Rad Conversion - 05/05/2019 12:20 AM PDT [facility] HEAD WO | | CONTRAST11/22/2014 9:08 PM HISTORY:53 years. Male. Subdural hematoma. TECHNIQUE:5-mm | | axial noncontrast images were acquired from the foramen magnum through the cranial | | vertex. COMPARISON:CT head noncontrast 11/22/[address] [facility] | | 10/14/2014 FINDINGS:An extensive right-sided craniectomy is noted. A small hyperdense | | extra-axial fluid collection is seen in the anterior margin of the craniectomy adjacent | | to the right frontal lobe measuring 9 x 18 mm, increased from 9 x 14 mm on 10/17/2014. | | This does not produce any significant mass effect on the adjacent right frontal lobe. | | Dural repair material is seen overlying the brain parenchyma at the craniectomy site | | with some areas of calcification and increased density. This does not represent a | | subdural hematoma. Linear hyperdense material is also seen at the lateral margin of the | | right middle cranial fossa which may represent Surgicel or some other type of | | hemostatic material which is unchanged since 2014. Again this does not | | appear to represent a definite subdural hematoma. The brain parenchyma is otherwise | | normal in attenuation. No midline shift is seen. The ventricles are normal in size. | | No signs of hyperacute stroke including loss of the insular ribbon or dense middle | | cerebral artery sign are noted. The orbits and their contents are normal. The | | paranasal sinuses are well aerated. No mucosal thickening or air-fluid levels are | | noted. The mastoid air cells show normal pneumatization bilaterally. No mastoid fluid | | noted. The osseous structures of the calvaria do not demonstrate fracture. No lytic or | | blastic lesions are noted. IMPRESSION: 1. Biconvex hyperdense extra-axial fluid | | collection suggesting a small subdural hematoma adjacent to the anterior margin of the | | right-sided craniectomy site currently measuring 9 x 18 mm compared with 9 x 14 mm | | 10/17/2014. This may indicate persistent venous oozing. It is not producing any | | significant mass effect.2. Otherwise largely normal CT scan of the head post right | | craniectomy. | |1. Biconvex hyperdense extra-axial fluid collection suggesting a small subdural hematoma a djacent to the anterior margin of the right-sided craniectomy site currently measuring 9 x 1 8 mm compared with 9 x 14 mm | |10/17/2014. This may indicate persistent | |venous oozing. It is not producing any significant mass effect. | |2. Otherwise largely normal CT scan of the head post right craniectomy. | | | | | + + External Lab: CBC (11/22/2014 8:44 PM PST) + + + + + + | Component | Value | Ref Range | Performed | Pathologist | | | | | At | Signature | + + + + + + | WBC | 9.58Comment: Testing | 3.80 - 11.00 | EXTERNAL | | | | performed at [facility];[address] | K/uL | LAB | | | | [address];[place] | | | | | | [address] | | | | + + + + + + | RED CELL | 3.99 (L)Comment: Testing | 4.20 - 5.70 | EXTERNAL | | | COUNT | performed at [facility];[address] | M/uL | LAB | | | | [address];[place] | | | | | | [address] | | | | + + + + + + | Hgb | 12.4 (L)Comment: Testing | 13.2 - 17.0 | EXTERNAL | | | | performed at [facility];[address] | g/dL | LAB | | | | [address];[place] | | | | | | [address] | | | | + + + + + + | Hematocrit, | 37.9 (L)Comment: Testing | 39.0 - 50.0 % | EXTERNAL | | | POC | performed at [facility];[address] | | LAB | | | | [address];[place] | | | | | | [address] | | | | + + + + + + | MCV | 95.2Comment: Testing | 80.0 - 100.0 fl | EXTERNAL | | | | performed at [facility];[address] | | LAB | | | | [address];[place] | | | | | | [address] | | | | + + + + + + | MCH | 31.0Comment: Testing | 27.0 - 34.0 pg | EXTERNAL | | | | performed at [facility];[address] | | LAB | | | | [address];[place] | | | | | | [address] | | | | + + + + + + | MCHC | 32.6Comment: Testing | 32.0 - 35.5 | EXTERNAL | | | | performed at [facility];[address] | g/dL | LAB | | | | [address];[place] | | | | | | [address] | | | | + + + + + + | RDW-CV | 48.1Comment: Testing | 37 - 53 fl | EXTERNAL | | | | performed at [facility];[address] | | LAB | | | | [address];[place] | | | | | | [address] | | | | + + + + + + | Platelet | 165Comment: Testing | 150 - 400 K/uL | EXTERNAL | | | Count | performed at [facility];[address] | | LAB | | | Plasma | [address];[place] | | | | | | [address] | | | | + + + + + + | MPV | 9.5Comment: Testing | fl | EXTERNAL | | | | performed at [facility];[address] | | LAB | | | | [address];[place] | | | | | | [address] | | | | + + + + + + | Differentia | AUTOMATEDComment: | | EXTERNAL | | | l Type | Testing performed at | | LAB | | | | [facility];[address];[place] [address] | | | | + + + + + + | % Segmented | 79.71Comment: Testing | % | EXTERNAL | | | | performed at [facility];[address] | | LAB | | | Neutrophils | [address];[place] | | | | | | [address] | | | | + + + + + + | % | 12.56Comment: Testing | % | EXTERNAL | | | Lymphocytes | performed at [facility];[address] | | LAB | | | | [address];[place] | | | | | | [address] | | | | + + + + + + | % Monocytes | 6.71Comment: Testing | % | EXTERNAL | | | | performed at [facility];[address] | | LAB | | | | [address];[place] | | | | | | [address] | | | | + + + + + + | % | 0.69Comment: Testing | % | EXTERNAL | | | Eosinophils | performed at [facility];[address] | | LAB | | | | [address];[place] | | | | | | [address] | | | | + + + + + + | % Basophils | 0.33Comment: Testing | % | EXTERNAL | | | | performed at [facility];[address] | | LAB | | | | [address];[place] | | | | | | [address] | | | | + + + + + + | Absolute | 7.64 (H)Comment: Testing | 1.90 - 7.40 | EXTERNAL | | | Segmented | performed at [facility];[address] | K/uL | LAB | | | Neutrophils | [address];[place] | | | | | | [address] | | | | + + + + + + | Absolute | 1.20Comment: Testing | 1.00 - 3.90 | EXTERNAL | | | Lymphocytes | performed at [facility];[address] | K/uL | LAB | | | | [address];[place] | | | | | | [address] | | | | + + + + + + | Absolute | 0.64Comment: Testing | 0.00 - 0.80 | EXTERNAL | | | Monocytes | performed at [facility];[address] | K/uL | LAB | | | | [address];[place] | | | | | | [address] | | | | + + + + + + | Absolute | 0.07Comment: Testing | 0.00 - 0.50 | EXTERNAL | | | Eosinophils | performed at [facility];[address] | K/uL | LAB | | | | [address];[place] | | | | | | [address] | | | | + + + + + + | Absolute | 0.03Comment: Testing | 0.00 - 0.10 | EXTERNAL | | | Basophils | performed at [facility];[address] | K/uL | LAB | | | | [address];[place] | | | | | | [address] | | | | + + + + + + + + | Specimen | + + | Blood specimen | | (specimen) | + + + +---------+ + + | Performing | Address | City/State/Zipcode | Phone Number | | Organization | | | | + +---------+ + + | EXTERNAL LAB | | | | + +---------+ + + Comprehensive Metabolic Panel (11/22/2014 8:44 PM PST) + + + + + + | Component | Value | Ref Range | Performed | Pathologist | | | | | At | Signature | + + + + + + | Na | 138Comment: Testing | 135 - 143 | EXTERNAL | | | | performed at [facility];[address] | mmol/L | LAB | | | | [address];[place] | | | | | | [address] | | | | + + + + + + | K | 4.0Comment: Testing | 3.5 - 4.9 | EXTERNAL | | | | performed at [facility];[address] | mmol/L | LAB | | | | [address];[place] | | | | | | [address] | | | | + + + + + + | Cl | 105Comment: Testing | 99 - 109 mmol/L | EXTERNAL | | | | performed at [facility];[address] | | LAB | | | | [address];[place] | | | | | | [address] | | | | + + + + + + | CO2 | 25Comment: Testing | 23 - 32 mmol/L | EXTERNAL | | | | performed at [facility];[address] | | LAB | | | | [address];[place] | | | | | | [address] | | | | + + + + + + | Anion Gap | 12Comment: Testing | 5 - 20 mmol/L | EXTERNAL | | | | performed at [facility];[address] | | LAB | | | | [address];[place] | | | | | | [address] | | | | + + + + + + | Glucose, | 114 (H)Comment: Testing | 65 - 99 mg/dL | EXTERNAL | | | Fasting | performed at [facility];[address] | | LAB | | | | [address];[place] | | | | | | [address] | | | | + + + + + + | BUN | 4 (L)Comment: Testing | 8 - 25 mg/dL | EXTERNAL | | | | performed at [facility];[address] | | LAB | | | | [address];[place] | | | | | | [address] | | | | + + + + + + | Creatinine | 0.73Comment: Testing | 0.70 - 1.30 | EXTERNAL | | | | performed at [facility];[address] | mg/dL | LAB | | | | [address];[place] | | | | | | [address] | | | | + + + + + + | BUN/Creatin | 5Comment: Testing | | EXTERNAL | | | ine Ratio | performed at [facility];[address] | | LAB | | | | [address];[place] | | | | | | [address] | | | | + + + + + + | Calcium | 8.3 (L)Comment: Testing | 8.5 - 10.5 | EXTERNAL | | | | performed at [facility];[address] | mg/dL | LAB | | | | [address];[place] | | | | | | [address] | | | | + + + + + + | Protein, | 7.7Comment: Testing | 6.3 - 8.2 g/dL | EXTERNAL | | | Total | performed at [facility];[address] | | LAB | | | | [address];[place] | | | | | | [address] | | | | + + + + + + | Albumin | 3.3 (L)Comment: Testing | 3.6 - 5.0 g/dL | EXTERNAL | | | | performed at [facility];[address] | | LAB | | | | [address];[place] | | | | | | [address] | | | | + + + + + + | Globulin | 4.4Comment: Testing | 1.3 - 4.9 g/dL | EXTERNAL | | | | performed at [facility];[address] | | LAB | | | | [address];[place] | | | | | | [address] | | | | + + + + + + | A/G Ratio | 0.7 (L)Comment: Testing | 1.0 - 2.4 | EXTERNAL | | | | performed at [facility];[address] | | LAB | | | | [address];[place] | | | | | | [address] | | | | + + + + + + | Bilirubin | 0.3Comment: Testing | 0.1 - 1.5 mg/dL | EXTERNAL | | | Total | performed at [facility];[address] | | LAB | | | | [address];[place] | | | | | | [address] | | | | + + + + + + | ALP, | 137 (H)Comment: Testing | 35 - 115 U/L | EXTERNAL | | | External | performed at [facility];[address] | | LAB | | | | [address];[place] | | | | | | [address] | | | | + + + + + + | AST | 37Comment: Testing | 10 - 45 U/L | EXTERNAL | | | | performed at [facility];[address] | | LAB | | | | [address];[place] | | | | | | [address] | | | | + + + + + + | ALT | 37Comment: Testing | 10 - 65 U/L | EXTERNAL | | | | performed at [facility];[address] | | LAB | | | | [address];[place] | | | | | | [address] | | | | + + + + + + | Estimated | >60Comment: GFR <60: | mL/min/1.73m2 | EXTERNAL | | | GFR | CHRONIC KIDNEY DISEASE, | | LAB | | | | IF FOUND OVER A 3 MONTH | | | | | | PERIOD.GFR <15: KIDNEY | | | | | | FAILURE.FOR | | | | | | AMERICANS, MULTIPLY THE | | | | | | CALCULATED GFR BY | | | | | | 1.210.Testing performed | | | | | | at [facility];[address] [place] [address] | | | | | | [address];[place] [address] | | | | + + + + + + + + | Specimen | + + | Blood specimen | | (specimen) | + + + +---------+ + + | Performing | Address | City/State/Zipcode | Phone Number | | Organization | | | | + +---------+ + + | EXTERNAL LAB | | | | + +---------+ + + documented in this encounter Visit Diagnoses + + | Diagnosis | + + | Seizure (HCC) Other convulsions | + + | Subdural hematoma, post-traumatic, initial encounter | + + | Traumatic brain injury, closed, initial encounter | + + | Traumatic brain injury, closed, sequela | + + | Alcohol withdrawal (HCC) Alcohol withdrawal | + + | Cerebral edema (HCC) Cerebral edema | + + | Hyposmolality and/or hyponatremia | + + | S/P craniotomy Other postprocedural status | + + | Traumatic brain injury, closed, subsequent encounter | + + | Headache(784.0) Headache | + + | Alcohol abuse Alcohol abuse, unspecified | + + | Debility, unspecified | + + | Difficulty in walking(719.7) Difficulty in walking | + + | Frequent falls Personal history of fall | + + | Seizures (HCC) Other convulsions | + + documented in this encounter
--- OUTSIDE RECORDS SUMMARY | ~2019-10-02 | XMS | Encounter Summary ---
Demographics + + + | Address | [address] | | | [place] [address] | + + + | Home Phone | | + + + | Preferred Language | Unknown | + + + | Marital Status | Single | + + + | Hindu Affiliation | Unknown | + + + | Race | White | + + + | Ethnic Group | Not or | + + + Author + + + | Author | [facility] | + + + | Organization | [facility] | + + + | [...] Team Providers + +------+ + | Care Brand Planner Name | Role | Phone | + +------+ + PCP | Unavailable | + +------+ + Encounter Details +--------+ + + + + | Date | Type | Department | Care Team | Description | +--------+ + + + + | 02/17/ | Results | [facility] | Wade Villalta MD | | | 2002 | Only | & Rehabilitation | [address] | | | | | [address] | [address] | | | | | Mailcode: [id number] | [place], [place] | | | | | Brian | [address] | | | | | [place], [place] | [phone] | | | | | [address] | | | | | | [phone] | | | +--------+ + + + [...] | | + +---------+ + + | [facility] DEPARTMENT OF | | | | | RADIOLOGY | | | | + +---------+ + + documented in this encounter Visit Diagnoses Not on filedocumented in this encounter"
--- OUTSIDE RECORDS SUMMARY | ~2019-10-02 | XMS | Encounter Summary ---
Demographics + + + | Address | [address] | | | [place] [address] | + + + | Home Phone | | + + + | Preferred Language | Unknown | + + + | Marital Status | Single | + + + | Sikhism Affiliation | Unknown | + + + | Race | White | + + + | Ethnic Group | Not or | + + + Author + + + | Author | [facility] | + + + | Organization | [facility] | + + + | [...] Team Providers + +------+ + | Care Data Warehouse Consultant Name | Role | Phone | + +------+ + | Anny Ennis DO | PCP | Unavailable | + +------+ + Reason for Visit + + + | Reason | Comments | + + + | Liver Transplant | Intake | | Referral | | + + + Encounter Details +--------+ + + + + | Date | Type | Department | Care Team | Description | +--------+ + + + + | 10/01/ | Documentati | Clinical | Clinic, Liver | Liver Transplant | | 2009 | on | Transplant Services | Transplant | Referral (Intake) | | | | [address] | | | | | | [place], | | | | | | [place] [address] | | | | | | [phone] | | | +--------+ + + + [...]
--- OUTSIDE RECORDS SUMMARY | ~2019-10-02 | XMS | Encounter Summary ---
Demographics + + + | Address | [address] | | | [place] [address] | + + + | Home Phone | | + + + | Preferred Language | Unknown | + + + | Marital Status | | + + + | Episcopalian Affiliation | Unknown | + + + | Race | Unknown | + + + | Ethnic Group | Unknown | + + + Author + + + | Author | [facility] | | | and [place] | + + + | Organization | [facility] | | [...] Team Providers + +------+ + | Care Housekeeping Assistant Name | Role | Phone | + +------+ + PCP | Unavailable | + +------+ + Encounter Details +--------+ + + + + | Date | Type | Department | Care Team | Description | +--------+ + + + + | 03/12/ | Hospital | [facility] | Conversion | Pain | | 2015 | Encounter | CONVERSION [address] | Transaction, | | | | | [address] | Provider Unknown | | | | | [place], [place] | [phone] | | | | | [address] | | | | | | [phone] | | | +--------+ + + + [...] as of this encounter Plan of Treatment +--------+---------+ + + + | Date | Type | Specialty | Care Team | Description | +--------+---------+ + + + | 10/16/ | Office | Orthopedic Surgery | David Lux, | | | 2019 | Visit | | [place] [address] | | | | | | [facility] [address] | | | | | | [place] [address] | | | | | | [phone] | | | | | | | | +--------+---------+ + + + documented as of this encounter Procedures + +--------+ + + + | Procedure Name | Priori | Date/Time | Associated Diagnosis | Comments | | | ty | | | | + +--------+ + + + | CT HEAD WO CONTRAST | Routin | 03/08/2015 | | Results for this | | | e | 3:05 AM | | procedure are in the | | | | PDT | | results section. | + +--------+ + + + documented in this encounter Results CT Head wo Contrast (03/08/2015 3:05 AM PDT) + + | Specimen | [...]
--- OUTSIDE RECORDS SUMMARY | ~2019-10-02 | XMS | Encounter Summary ---
Demographics + + + | Address | [address] | | | [place] [address] | + + + | Home Phone | | + + + | Preferred Language | Unknown | + + + | Marital Status | | + + + | Episcopalian Affiliation | Unknown | + + + | Race | Unknown | + + + | Ethnic Group | Unknown | + + + Author + + + | Author | [facility] | | | and Olegarioana | + + + | Organization | [facility] | | | [...] Jay Edouardalberletitia | ECON | Unknown | | + + +---------+ + | Teressa Edouardalberletitia | ECON | Unknown | | + + +---------+ + Care Team Providers + +------+ + | Care Hospital Fellow Name | Role | Phone | + +------+ + | Mason Oliveira DO | PCP | | + +------+ + Encounter Details +--------+ + + + + | Date | Type | Department | Care Team | Description | +--------+ + + + + | 09/11/ | Orders Only | [facility] | Conversion | | | 2008 | | CONVERSION | Transaction, | | | | | INTERFACES | Provider Unknown | | | | | [phone] | [phone] | | | | | | | [...] | | | | | | [facility] [address] | | | | | | [place] [address] | | | | | | [phone] | | | | | | | | +--------+---------+ + + + documented as of this encounter Procedures + +--------+ + + + | Procedure Name | Priori | Date/Time | Associated Diagnosis | Comments | | | ty | | | | + +--------+ + + + | CT HEAD WO CONTRAST | Routin | 09/11/2009 | | Results for this | | | e | 9:01 AM | | procedure are in the | | | | PST | | results section. | + +--------+ + + + documented in this encounter Results CT Head wo Contrast (09/11/2009 9:01 AM PST) + + | Specimen | + + | | + + + + + | Narrative | Performed At | + + + | Study was foreign film entered for reference only. | | + + + + + | Procedure Note | + + | Marlon Santamaria Conversion - 05/14/2019 10:02 PM PDT Study was foreign film entered for | | reference only. | + + documented in this encounter Visit Diagnoses Not on filedocumented in this encounter"
--- OUTSIDE RECORDS SUMMARY | ~2019-10-02 | XMS | Encounter Summary ---
Demographics + + + | Address | [address] | | | [place] [address] | + + + | Home Phone | | + + + | Preferred Language | Unknown | + + + | Marital Status | | + + + | Hindu Affiliation | Unknown | + + + | Race | Unknown | + + + | Ethnic Group | Unknown | + + + Author + + + | Author | [facility] | | | and Olegarioana | + + + | Organization | [facility] | | [...] Team Providers + +------+ + | Care Clarification Operator Name | Role | Phone | + +------+ + PCP | Unavailable | + +------+ + Encounter Details +--------+ + + + + | Date | Type | Department | Care Team | Description | +--------+ + + + + | 08/30/ | [facility] | [facility] | En[facility] | MED CTR GENERIC OP | | | | | | CONV DEPT [address] | | | | | | [place], | | | | | | [place] [address] | | | | | | [phone] | | | +--------+ + + + [...] | | | | | | [address] | | | | | | [place] [address] | | | | | | [phone] | | | | | | | | +--------+---------+ + + + documented as of this encounter Visit Diagnoses Not on filedocumented in this encounter"
--- OUTSIDE RECORDS SUMMARY | ~2019-10-02 | XMS | Encounter Summary ---
Demographics + + + | Address | [address] | | | [place] [address] | + + + | Home Phone | | + + + | Preferred Language | Unknown | + + + | Marital Status | | + + + | Scientology Affiliation | Unknown | + + + | Race | Unknown | + + + | Ethnic Group | Unknown | + + + Author + + + | Author | [facility] | | | and Olegarioana | + + + | Organization | [facility] | | | [...] Team Providers + +------+ + | Care Director International Name | Role | Phone | + +------+ + PCP | Unavailable | + +------+ + Encounter Details +--------+ + + + + | Date | Type | Department | Care Team | Description | +--------+ + + + + | 11/22/ | Hospital | [facility] | Conversion | Headache(784.0) | | 2015 | Encounter | CONVERSION [address] | Transaction, | | | | | [address] | Provider Unknown | | | | | [place], [place] | | | | | | [address] | (Fax) | | | | | [phone] | | | +--------+ + + + [...] | Office | Orthopedic Surgery | Jose J Davidmargret Helm, | | | 2019 | Visit | | [facility] [address] | | | | | | [address] | | | | | | [place] [address] | | | | | | [phone] | | | | | | | [...] this encounter Results CT Head wo Contrast (11/22/2014 5:53 PM PST) + + | Specimen | [...]
--- OUTSIDE RECORDS SUMMARY | ~2019-10-02 | XMS | Encounter Summary ---
Demographics + + + | Address | [address] | | | [place] [address] | + + + | Home Phone | | + + + | Preferred Language | Unknown | + + + | Marital Status | | + + + | Episcopal Affiliation | Unknown | + + + | Race | Unknown | + + + | Ethnic Group | Unknown | + + + Author + + + | Author | [facility] | | | and Olegarioana | + + + | Organization | [facility] | | | and [...] Team Providers + +------+ + | Care Jewelsmith Name | Role | Phone | + +------+ + PCP | Unavailable | + +------+ + Encounter Details +--------+ + + + + | Date | Type | Department | Care Team | Description | +--------+ + + + + | 09/04/ | Hospital | [facility] | Conversion | Pain | | 2014 | Encounter | CONVERSION [address] | Transaction, | | | | | [address] | Provider Unknown | | | | | [place], [place] | [phone] | | | | | [address] | | | | | | [phone] | | | +--------+ + + + [...] | | | | | | [facility] [address] | | | | | | [place] [address] | | | | | | [phone] | | | | | | | [...] + + | Marlon Santamaria Conversion - 05/06/2019 1:15 AM PDT This is a non-reportable procedure | | without a radiologist report and isused for image storage only | + + documented in this encounter Visit Diagnoses + + | Diagnosis | + + | Pain Generalized pain | + + documented in this encounter"
--- OUTSIDE RECORDS SUMMARY | ~2019-10-02 | XMS | Encounter Summary ---
Demographics + + + | Address | [address] | | | [place] [address] | + + + | Home Phone | | + + + | Preferred Language | Unknown | + + + | Marital Status | | + + + | Restoration Affiliation | Unknown | + + + | Race | Unknown | + + + | Ethnic Group | Unknown | + + + Author + + + | Author | [facility] | | | and Olegarioana | + + + | Organization | [facility] | | [...] Team Providers + +------+ + | Care Collar Turner Name | Role | Phone | + +------+ + PCP | Unavailable | + +------+ + Encounter Details +--------+ + + + + | Date | Type | Department | Care Team | Description | +--------+ + + + + | 05/24/ | Hospital | [facility] | Conversion | Pain | | 2015 | Encounter | CONVERSION [address] | Transaction, | | | | | [address] | Provider Unknown | | | | | [place], [place] | [phone] | | | | | [address] | | | | | | [phone] | | | +--------+ + + + [...] | | | | | | [facility] [address] | | | | | | [place] [address] | | | | | | [phone] | | | | | | | | +--------+---------+ + + + documented as of this encounter Procedures + +--------+ + + + | Procedure Name | Priori | Date/Time | Associated Diagnosis | Comments | | | ty | | | | + +--------+ + + + | XR CHEST 2 VIEWS | Routin | 05/24/2015 | | Results for this | | | e | 10:59 PM | | procedure are in the | | | | PDT | | results section. | + +--------+ + + + documented in this encounter Results XR Chest 2 Vws (05/24/2015 10:59 PM PDT) + + | Specimen | + + | | + + + + + | Narrative | Performed At | + + + | This is a non-reportable procedure without a radiologist report and | | | is used for image storage only | | + + + + + | Procedure Note | + + | Marlon Santamaria Myrna - 05/05/2019 12:20 AM PDT This is a non-reportable procedure | | without a radiologist report and isused for image storage only | + + documented in this encounter Visit Diagnoses + + | Diagnosis | + + | Pain Generalized pain | + + documented in this encounter"
--- OUTSIDE RECORDS SUMMARY | ~2019-10-02 | XMS | Encounter Summary ---
Demographics + + + | Address | [address] | | | [place] [address] | + + + | Home Phone [...] | + + +---------+ + | Jay Jya Fortune | ECON | Unknown | + | + + +---------+ + | Teressa Edouardalberletitia | ECON | Unknown | + | + + +---------+ + Care Team Providers + +------+ + | Care Cutter Banana Room Name | Role | Phone | + +------+ + PCP | Unavailable | + +------+ + Encounter Details +--------+ + + + + | Date | Type | Department | Care Team | Description | +--------+ + + + + | 11/12/ | Hospital | [facility] | Rodo Draper, | | | 2008 - | Encounter | MED CTR ICU [address] | [address] | | | | | [place], | [place], [place] | | | 11/17/ | | [place] [address] | [address] | | | 2008 | | [phone] | [phone] | | | | | | | [...] | | | | | [place] [address] | | | | | | [phone] | | | | | | | | +--------+---------+ + + + documented as of this encounter Visit Diagnoses Not on filedocumented in this encounter"
--- OUTSIDE RECORDS SUMMARY | ~2019-10-02 | XMS | Encounter Summary ---
Demographics + + + | Address | [address] | | | [place] [address] | + + + | Home Phone | | + + + | Preferred Language | Unknown | + + + | Marital Status | Single | + + + | Oriental Orthodox Affiliation | Unknown | + + [...] Team Providers + +------+ + | Care Inclined Railway Operator Name | Role | Phone | + +------+ + | Anny Ennis DO | PCP | Unavailable | + +------+ + Encounter Details +--------+------+ + + + | Date | Type | Department | Care Team | Description | +--------+------+ + + + | 03/13/ | Lab | Laboratory at [facility] | | Cirrhosis (HCC) | | 2009 | | [address] | | | | | | [place], [place] | | | | | | [address] | | | | | | [phone] | | | +--------+------+ + + + [...] [facility] | REGIONAL | | [place] [address] | LABORATORY | | [place] [address] | | + + + + + + + + | Performing | Address | City/State/Zipcode | Phone Number | | Organization | | | | + + + + + | [facility] | [address] | [place] [address] | | | LABORATORY | | | [...] | LABORATORY | | | | at [facility], | | | | | | [place], [place]. | | | | + + + + + + + + | Specimen | + + | Blood - Blood | + + + + + | Narrative | Performed At | + + + | [facility] | [facility] | | [place] [address] | REGIONAL | | [place] [address] | LABORATORY | + + + + + + + + | Performing | Address | City/State/Zipcode | Phone Number | | Organization | | | | + + + + + | [facility] | [address] | [place] [address] | | | LABORATORY | | | [...] | | | | | [facility] | | | | | | Services [address] | | | | | | [place] | | | | | | [address] | | | | + + + + + + + + | Specimen | + + | Urine - Urine | + + + + + + + | Performing | Address | City/State/Zipcode | Phone Number | | Organization | | | | + + + + + | [facility] | [address] | [place], [place] | | | UNIV PTH - MANUAL | | [address] | | + + + + + [...] At | + + + | [facility] | [facility] | | [place] [address] | REGIONAL | | [place] [address] | LABORATORY | + + + + + + + + | Performing | Address | City/State/Zipcode | Phone Number | | Organization | | | | + + + + + | [facility] | [address] | [place] [address] | | | LABORATORY | | | [...] At | + + + | [facility] | [facility] | | [place] [address] [address] [facility] | [facility] | | [place] [address] | LABORATORY | + + + + + + + + | Performing | Address | City/State/Zipcode | Phone Number | | Organization | | | | + + + + + | [facility] | [address] | [place] [address] | | | LABORATORY | | | [...] At | + + + | [facility] | [place]UN[place] | | [place] [address] | REGIONAL | | [place] [address] | LABORATORY | + + + + + + + + | Performing | Address | City/State/Zipcode | Phone Number | | Organization | | | | + + + + + | [facility] | [address] | [place] [address] | | | LABORATORY | | | [...] by | | | | | | [place], | | | | | | | | | | | | [address] | | | | | | [place] [address] | | | | | | [phone] | | | | | | | | | | | | [email or web address], | | | | | | Mag[employer] [...] [facility] | [address] | [place], [place] | | | UNIV PTH - INTFC | | [address] | | + + + + + [...] + + + | [facility] | B[place] | | [place] [address] | DEPARTMENT | | [place] [address] | PATHOLOGY | + + + + + + + + | Performing | Address | City/State/Zipcode | Phone Number | | Organization | | | | + + + + + | [facility] DEPARTMENT OF | [address] | [place] [address] | | | PATHOLOGY | [address] [...] DEPARTMENT OF | [address] | [place] [address] | | | PATHOLOGY | [address] [...] | + + + + + | [facility] | [address] | [place] [address] | | | PATHOLOGY | [address] [...] | | | DEPARTMENT | | | SUDANESE | | | OF | | | [...] | + + + + + | [facility] | [address] | [place] [address] | | | PATHOLOGY | [address] | | | + + + + + documented in this encounter Visit Diagnoses + + | Diagnosis | + + | 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
--- OUTSIDE RECORDS SUMMARY | ~2019-10-02 | XMS | Encounter Summary ---
Demographics + + + | Address | [address] | | | [place] [address] | + + + | Home Phone | | + + + | Preferred Language | Unknown | + + + | Marital Status | | + + + | Amish Affiliation [...] Team Providers + +------+ + | Care Vending Machine Servicer Name | Role | Phone | + +------+ + PCP | Unavailable | + +------+ + Encounter Details +--------+ + + + + | Date | Type | Department | Care Team | Description | +--------+ + + + + | 07/18/ | Hospital | [facility] | Conversion | Intracranial injury | | 2015 | Encounter | [facility] [address] | Transaction, | of other and | | | | [address] | Provider Unknown | unspecified nature, | | | | [place], [place] | | without mention of | | | | [address] | (Fax) | open intracranial | | | | [phone] | | wound, unspecified | | | [...] | | | | | | [facility] [address] | | | | | | [place] [address] | | | | | | [phone] | | | | | | | [...] Santamaria Conversion - 05/05/2019 12:20 AM PDT HISTORY:Cranial [...]
--- OUTSIDE RECORDS SUMMARY | ~2019-10-02 | XMS | Encounter Summary ---
Demographics + + + | Address | [address] | | | [place] [address] | + + + | Home Phone | | + + + | Preferred Language | Unknown | + + + | Marital Status | | + + + | Evangelical Affiliation | Unknown | + + + | Race | Unknown | + + + | Ethnic Group | Unknown | + + + Author + + + | Author | [facility] | | | and Olegarioana | + + + | Organization | [facility] | | | and [...] Team Providers + +------+ + | Care Clinical Laboratory Aides Teacher Name | Role | Phone | + [...] | Transaction, | | | | | [address] | Provider Unknown | | | | | [place], [place] | [phone] | | | | | [address] | | | | | | [phone] | | | +--------+ + + + [...] | | | | | | [facility] [address] | | | | | | [place] [address] | | | | | | [phone] | | | | | | | [...]
--- OUTSIDE RECORDS SUMMARY | ~2019-10-02 | XMS | Encounter Summary ---
Demographics + + + | Address | [address] | | | [place] [address] | + + + | Home Phone | | + + + | Preferred Language | Unknown | + + + | Marital Status | Single | + + + | Yazdanism Affiliation | Unknown | + + + | Race | White | + + + | Ethnic Group | Not or | + + + Author + + + | Author | [facility] | + + + | Organization | [facility] | + + + | Address [...] Team Providers + +------+ + | Care Technical Analyst Name | Role | Phone | + +------+ + PCP | Unavailable | + +------+ + Encounter Details +--------+ + + + + | Date | Type | Department | Care Team | Description | +--------+ + + + + | 02/17/ | ED Progress | [facility] | Report, Emergency | ED Progress Note | | 2002 | | MEDICINE | Services | | | | Note-Transc | | | | | | ribed | | | | +--------+ + + [...]
--- OUTSIDE RECORDS SUMMARY | ~2019-10-02 | XMS | Encounter Summary ---
Demographics + + + | Address | [address] | | | [place] [address] | + + + | Home Phone | | + + + | Preferred Language | Unknown | + + + | Marital Status | | + + + | Restorationist Affiliation | Unknown | + + + | Race | Unknown | + + + | Ethnic Group | Unknown | + + + Author + + + | Author | [facility] | | | and Olegarioana | + + + | Organization | [facility] | | | [...] Team Providers + +------+ + | Care Manager Fast Food Name | Role | Phone | + [...] + | 06/19/ | Anesthesia | [facility] | Tony Molina MD | | | 2019 | Event | [facility] | [address] | | | | | OP [address] | [place] [address] | | | | | [place] | [phone] | | | | | [address] | | | | | | [phone] | Ha Herrmann, | | | | | | SERVICE RIG OPERATOR [address] | | | | | | [place] [address] | | | | | | [phone] | | | | | | | | +--------+ + + + + Anesthesia Record + + + + + | Procedure Name | Responsible | Anesthesia Start | Anesthesia Stop Time | | | Anesthesiologist | Time | | + + + + + | ORIF ULNA FRACTURE | Tony Molina MD | 06/19/19 09 | 06/19/19 1035 | | (Right Arm [...] +----+---+ + + | | 0 | [place] | | | | 9 | 43-degrees [...] +----+---+ + + | | 1 | [place] off | | | | 0 | [...] pressure injectable; | Negrita Verma RN | Nayana Adamson, | | IV | 20 gauge; other (see comments); | | Publications Writer | | | lost patency; 06/22/19; 1003 [...] | | | | 06/19/19; Removal Time: 102 | | | +--------+ + + + [...] Surgery | David Lux, | | | 2020 | Visit | | [facility] [address] | | | | | | [facility] [address] | | | | | | [place] [address] | | | | | | [phone] | | | | | | | [...] | | | | | 06/19/19 at 11, Anesthesia | | AM PDT | | [...]
--- OUTSIDE RECORDS SUMMARY | ~2019-10-02 | XMS | Encounter Summary ---
Demographics + + + | Address | [address] | | | [place] [address] | + + + | Home Phone | | + + + | Preferred Language | Unknown | + + + | Marital Status | | + + + | Alevism Affiliation | Unknown | + + + | Race | Unknown | + + + | Ethnic Group | Unknown | + + + Author + + + | Author | [facility] | | | and Olegarioana | + + + | Organization | [facility] | | | [...] Team Providers + +------+ + | Care Veneer Drier Tailer Name | Role | Phone | + [...] Provider Unknown | | | | | [phone] | [phone] | | | | | | | [...] | | | | | | [facility] [address] | | | | | | [place] [address] | | | | | | [phone] | | | | | | | [...]
--- OUTSIDE RECORDS SUMMARY | ~2019-10-02 | XMS | Encounter Summary ---
Demographics + + + | Address | [address] | | | [place] [address] | + + + | Home Phone | | + + + | Preferred Language | Unknown | + + + | Marital Status | | + + + | Yazidi Affiliation | Unknown | + + + | Race | Unknown | + + + | Ethnic Group | Unknown | + + + Author + + + | Author | [facility] | | | and Olegarioana | + + + | Organization | [facility] | | | [...] Team Providers + +------+ + | Care Certified Orthotist Name | Role | Phone | + +------+ + PCP | Unavailable | + +------+ + Encounter Details +--------+ + + + + | Date | Type | Department | Care Team | Description | +--------+ + + + + | 03/12/ | Hospital | [facility] [place] [place] [facility] | Conversion | Pain | | 2015 | Encounter | CONVERSION [address] | Transaction, | | | | | [address] | Provider Unknown | | | | | [place], [place] | [phone] | | | | | [address] | | | | | | [phone] | | | +--------+ + + + [...] | | | | | [facility] [address] | | | | | | [place] [address] | | | | | | [phone] | | | | | | | [...]
--- OUTSIDE RECORDS SUMMARY | ~2019-10-02 | XMS | Encounter Summary ---
Demographics + + + | Address | [address] | | | [place] [address] | + + + | Home Phone [...] + + + | Author | [facility] | + + + | Organization | [facility] | + + + | Address [...] Team Providers + +------+ + | Care Nuclear Weapons Custodian Name | Role | Phone | + +------+ + PCP | Unavailable | + +------+ + Encounter Details +--------+ + + + + | Date | Type | Department | Care Team | Description | +--------+ + + + + | 12/17/ | Abstract | [facility] | Azeem Dietrich | | | 2011 | | [place] [address] [address] | | | | [address] | [place], [place] | | | | | Mailcode: [id number] | [address] | | | | | [facility] | [phone] | | | | | and [address], | | | | | | [address] | | | | | | [place], [place] | | | | | | [address] | | | | | | [phone] | | | +--------+ + + + [...]
--- OUTSIDE RECORDS SUMMARY | ~2019-10-02 | XMS | Encounter Summary ---
Demographics + + + | Address | [address] | | | [place] [address] | + + + | Home Phone [...] Team Providers + +------+ + | Care Rad Tech Name | Role | Phone | + [...] | Transcriptions | + + | Interface, All Source Analyst In - 04/16/2006 1:08 AM PDT | | [address] | | [place], [place] [phone] | | [facility] Rec No.: | | [id number] [...] be done | | [place]. We were happy to splint him if [...] isgoing to follow up | | in [place], although, if cares to come back here, wewill be happy to see him in Dr. | | Rodo Maldonado, adult orthopedic clinic.Wade Villalta M.D.FARTUN/ellyoD: 02/17/2003T: | | 02/17/2003 12:31 [id number] | |OPERATIONS PERFORMED: The patient was taken [...] is | |going to follow up in [place], although, if cares to come back here, we | |will be happy to see him in Dr. Rodo Maldonado, adult orthopedic clinic. | | | | | | | |Wade Villalta M.D. | | | |Donaldo | | | | P | |[phone] | + + documented in this encounter Visit Diagnoses Not on filedocumented in this encounter"
--- OUTSIDE RECORDS SUMMARY | ~2019-10-02 | XMS | Encounter Summary ---
Demographics + + + | Address | [address] | | | [place] [address] | + + + | Home Phone [...] + + | Author | [facility] | | | and Olegarioana | + + + | Organization | [facility] | | | [...] Team Providers + +------+ + | Care Slab Polisher Name | Role | Phone | + +------+ + PCP | Unavailable | + +------+ + Encounter Details +--------+ + + + + | Date | Type | Department | Care Team | Description | +--------+ + + + + | 09/11/ | Hospital | [facility] | Rosa Isela Vásquez, | End Stage Renal | | 2008 - | Encounter | [facility] | [address] | Disease (HCC) | | | | CARE FLOOR [address] | [facility] [address], | | | 09/16/ | | [address] | [place] [address] | | | 2008 | | [place], [place] | [phone] | | | | | [address] | | | | | | [phone] | Maria Luisa Barry, | | | | | | [address] | | | | | | [place] [address] | | | | | | [phone] | | | | | | | [...] | Office | Orthopedic Surgery | David Casillas, | | | 2019 | Visit | | [place] [address] | | | | | | [facility] [address] | | | | | | [place] [address] | | | | | | [phone] | | | | | | | [...] Performed At | + + + | [facility] | | | [facility] [address] | | | , | | | [id number]/RADIOLOGY Patient Name: EVANS MCGUIRE Date of | | | : 1960 Medical Record: [id number] Account: | | | [id number] I/P/[facility] / Exam Date/Time: | | | 09/13/2009 [...] P A | | | 10:28 A /[facility]/[id number]/ cc: MD GIGI GARCIA | | | MD PEPITO | | + + + + + | Procedure Note | + + | Marlon Santamaria - 05/14/2019 10:02 PM PDT | | [facility] | | [facility] [address] | | , | | | | [id number]/RADIOLOGY | | | | Patient Name: EVANS MCGUIRE | | Date of : 1960 | | Medical Record: [id number] | | Account: [id number] | | I/P/JAZMÍN / | | | [...] | A | | A | | /[facility]/[id number]/ | | cc: JEFF AMANDA MD | | GIGI BEYER MD | + + XR Abdomen AP (09/12/2009 12:11 PM PST) + + | Specimen | + + | | + + + + + | Narrative | Performed At | + + + | [facility] | | | [facility] [address] | | | , | | | [id number]/RADIOLOGY Patient Name: EVANS MCGUIRE Date of | | | : 1960 Medical Record: [id number] Account: | | | [id number] I/P/[facility] / Exam Date/Time: | | | 09/12/2009 [...] | | | 09/12/2009 01:48 P P Christina/carlota/[id number]/ cc: | | | MD GIGI ARTHUR MD | | + + + + + | Procedure Note | + + | Marlon Santamaria - 05/14/2019 10:02 PM PDT | | [facility] | | [facility] [address] | | , | | | | [id number]/RADIOLOGY | | | | Patient Name: EVANS MCGUIRE | | Date of : 1960 | | Medical Record: [id number] | | Account: [id number] | | I/P/CCC / | | | [...] | P | | P | | BRIAN/carlota/[id number]/ | | cc: JOE CASILLAS MD | | GIGI BEYER MD | + + MRI Brain Wo MRA Head Wo (09/12/2009 11:17 AM PST) + + | Specimen | + + | | + + + + + | Narrative | Performed At | + + + | [facility] | | | [facility] [address] | | | , | | | [id number]/RADIOLOGY Patient Name: EVANS MCGUIRE Date of | | | : 1960 Medical Record: [id number] Account: | | | [id number] I/P/[facility] / Exam Date/Time: | | | 09/12/2009 [...] DT: | | | 09/12/2009 11:55 A [facility]/[id number]/ cc: JOE CASILLAS MD | | | MD GIGI TOSCANO MD | | + + + + + | Procedure Note | + + | Marlon Santamaria Conversion - 05/14/2019 10:02 PM PDT | | [facility] | | [facility] [address] | | , | | | | [id number]/RADIOLOGY | | | | Patient Name: EVANS MCGUIRE | | Date of : 1960 | | Medical Record: [id number] | | Account: [id number] | | I/P/[facility] | | | | | | Exam [...] | A | | A | | [facility]/[id number]/ | | cc: JOE CASILLAS MD | | MARIA LUISA BARRY MD | | GIGI BEYER MD | + + XR Chest 1 Vw (09/12/2009 5:40 AM PST) + + | Specimen | + + | | + + + + + | Narrative | Performed At | + + + | [facility] | | | [facility] [address] | | | , | | | [id number]/Diagnostic Outsourced Patient Name: EVANS MCGUIRE | | | Date of : 1960 Medical Record: [id number] Account: | | | [id number] I/P/[facility] / Exam Date/Time: | | | 09/12/2009 [...] A A | | | 09:19 A MM/ccv/[id number]/ cc: MD LYNNE TOSCANO | | | MD GIGI VILLEGAS MD | | + + + + + | Procedure Note | + + | Marlon Santamaria - 05/14/2019 10:02 PM PDT | | [facility] | | [facility] [address] | | , | | | | [id number]/Diagnostic Outsourced | | | | Patient Name: EVANS MCGUIRE | | Date of : 1960 | | Medical Record: [id number] | | Account: [id number] | | I/P/[facility] / | | | | | | [...] | A | | A | | MM/ccv/[id number]/ | | cc: MARIA LUISA BARRY MD | | LYNNE VILLEGAS MD | | GIGI BEYER MD | + + CT Head wo Contrast (09/12/2009 2:49 AM PST) + + | Specimen | + + | | + + + + + | Narrative | Performed At | + + + | [facility] | | | [facility] [address] | | | , | | | [id number]/Diagnostic Outsourced Patient Name: EVANS MCGUIRE | | | Date of : 1960 Medical Record: [id number] Account: | | | [id number] I/P/[facility] / Exam Date/Time: | | | 09/12/2009 [...] 09/12/2009 03:06 A Electronically Signed by LYNNE VILLEGAS, | | | 09/15/2009 06:24 A A | | | 08:58 A RONALD/onel/[id number]/ cc: MD LYNNE TOSCANO | | | MD GIGI VILLEGAS MD | | + + + + + | Procedure Note | + + | Marlon Santamaria Conversion - 05/14/2019 10:02 PM PDT | | [facility] | | [facility] [address] | | , | | | | [id number]/Diagnostic Outsourced | | | | Patient Name: EVANS MCGUIRE | | Date of : 1960 | | Medical Record: [id number] | | Account: [id number] | | Caroline/Zara/JAZMÍN / | | | | | | [...] | A | | A | | MM/onel/[id number]/ | | cc: MARIA LUISA BARRY MD | | LYNNE VILLEGAS MD | | GIGI BEYER MD | + + XR Chest 1 Vw (09/11/2009 8:25 PM PST) + + | Specimen | + + | | + + + + + | Narrative | Performed At | + + + | [facility] | | | [facility] [address] | | | , | | | [id number]/RADIOLOGY Patient Name: EVANS MCGUIRE Date of | | | : 1960 Medical Record: [id number] Account: | | | [id number] I/P/[facility] / Exam Date/Time: | | | 09/11/2009 [...] | | | 09/11/2009 11:01 P P DTB/nolvia/[id number]/ cc: | | | MD MARIA LUISA LITTLE MD [facility] S | | | MD PEPITO | | + + + + + | Procedure Note | + + | Marlon Santamaria - 05/14/2019 10:02 PM PDT | | [facility] | | [facility] [address] | | , | | | | [id number]/RADIOLOGY | | | | Patient Name: EVANS MCGUIRE | | Date of : 1960 | | Medical Record: [id number] | | Account: [id number] | | I/P/[facility] / | | | | | | [...] | P | | P | | DTB/gf/[id number]/ | | cc: RONNY RAYA MD | | MARIA LUISA BARRY MD | | GIGI BEYER MD | + + documented in this encounter Visit Diagnoses + + | Diagnosis | + + | End stage renal disease (HCC) End stage renal disease | + + documented in this encounter"
--- OUTSIDE RECORDS SUMMARY | ~2019-10-02 | XMS | Encounter Summary ---
Demographics + + + | Address | [address] | | | [place] [address] | + + + | Home Phone | | + + + | Preferred Language | Unknown | + + + | Marital Status | Single | + + + | Moravian Affiliation | Unknown | + + + | Race | White | + + + | Ethnic Group | Not or | + + + Author + + + | Author | [facility] | + + + | Organization | [facility] | + + + | Address | [...] Team Providers + +------+ + | Care Dairy Truck Driver Name | Role | Phone | + +------+ + PCP | Unavailable | + +------+ + Encounter Details +--------+ + + + + | Date | Type | Department | Care Team | Description | +--------+ + + + + | 12/17/ | Abstract | [facility] | Azeem Dietrich | | | 2011 | | [place] [address] [address] | | | | | [address] | [place], [place] | | | | | Mailcode: [id number] | [address] | | | | | [facility] | [phone] | | | | | and [address], | | | | | | [address] | | | | | | [place], [place] | | | | | | [address] | | | | | | [phone] | | | +--------+ + + + [...]
--- OUTSIDE RECORDS SUMMARY | ~2019-10-02 | XMS | Clinical Summary ---
Demographics + + + | Address | [address] | | | [place] [address] | + + + | Home Phone [...] Team Providers + +------+ + | Care Frontend Engineer Name | Role | Phone | + +------+ + PCP | Unavailable | + +------+ + Source Comments BATSHEVA is fully live on both [facility] and [facility] InPatient.[facility] Allergies + + + + + [...] | | | + +--------+ +--------+-------+---------+--------+ | [facility] | | xxxx | Effect | [...] | 1961 | [phone] | [place] [address] | | | ryan | | | 0 (Home) | | + +--------+ +--------+ + + | Astrid Sánchez | Agency | Self | [birth year] | [address] | | rachelle Ring | | | 1961 | [phone] | [place] [address] | | | | | | 0 (Home) | | + +--------+ +--------+ + +
--- OUTSIDE RECORDS SUMMARY | ~2019-10-02 | XMS | Encounter Summary ---
Demographics + + + | Address | [address] | | | [place] [address] | + + + | Home Phone | | + + + | Preferred Language | Unknown | + + + | Marital Status | | + + + | Congregational Affiliation | Unknown | + + + [...] Team Providers + +------+ + | Care Film Sound Engineer Name | Role | Phone | + +------+ + PCP | Unavailable | + +------+ + Encounter Details +--------+ + + + + | Date | Type | Department | Care Team | Description | +--------+ + + + + | 09/04/ | Hospital | [facility] | Conversion | Pain | | 2014 | Encounter | CONVERSION [address] | Transaction, | | | | | [address] | Provider Unknown | | | | | [place], [place] | [phone] | | | | | [address] | | | | | | [phone] | | | +--------+ + + + [...] | | | | | | [facility] [address] | | | | | | [place] [address] | | | | | | [phone] | | | | | | | [...]
--- OUTSIDE RECORDS SUMMARY | ~2019-10-02 | XMS | Encounter Summary ---
Demographics + + + | Address | [address] | | | [place] [address] | + + + | Home Phone [...] Team Providers + +------+ + | Care Correctional Guard Name | Role | Phone | + +------+ + PCP | Unavailable | + +------+ + Encounter Details +--------+ + + + + | Date | Type | Department | Care Team | Description | +--------+ + + + + | 05/28/ | Hospital | [facility] | Livier Betancur, | Unspecified acquired | | 2015 - | Encounter | [facility] [address] | deformity of head | | | | [address] | [place] [address] | | | 06/03/ | | [place], [place] | [phone] | | | 2014 | | [address] | | | | | | [phone] | | | +--------+ + + + [...] documented as of this encounter Discharge Summaries Livier Betancur - 06/21/2015 11:19 AM PDT Discharge Summaries by Livier Betancur MD at 06/21/15 1119 Author: Livier Betancur MD Service: Neurosurgery Author Type: Physician Filed: 06/21/15 1128 Date of Service: 06/21/151118 Status: Signed Bull Bucker: Livier Betancur MD (Physician) [facility] Service: Neurosurgery Discharge Summary Date of Admission: [...] Diagnostic Studies: BRIEF HISTORY OF PRESENTATION: Tony Mcguire is a 54 y.o. male who originally underwent a large right frontotempor al parietal decompressive craniectomy by neurosurgeon Dr. Konstantin Chong on 10/11/2014. The p atient did make a reasonable recovery, although continued to reside at the [facility] in [place], [place]. 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 Dr. Chong was not available for the surgery, secondary to a ga litary commitment, and I did see the patient in follow-up. The patient was then admitted to the [facility] on 05/28/2015 for an elective right-sided cranioplasty. The patient did have significant depression of the right scalp. HOSPITAL COURSE: The patient's surgery was uneventful. He was monitored in intensive care unit, where he r emained lethargic, although not greatly changed from his pre-operative status. A head CT e next morning did demonstrate a large right epidural hematoma at the surgical site. The pa tient was monitored through the morning, but did [...] the patient was transferred back to his usp, [facility] in [facility] on 06/03/2015 Past Medical History Diagnosis Date Alcohol abuse Frequent falls Drug abuse Seizures (HCC) Other chronic pain Depression Skin abscess Anemia Hemiparesis (HCC) Past Surgical History Procedure Laterality Date Craniotomy Right 10/11/2014 Procedure: CRANIOTOMY - FOR BLEED; Surgeon: Anthony Chong MD; Location: [facility] OR; Service: Neurosurgery; Laterality: Right; Craniectomy Right 10/11/2014 Procedure: CRANIECTOMY; Surgeon: Anthony Chong MD; Location: [facility]; Ser vice: Neurosurgery; Laterality: Right; Cranial flap replacement Right 05/28/2015 Procedure: CRANIAL - FLAP REPLACEMENT; Surgeon: Livier Betancur MD; Location: [facility] OR; Service: Neurosurgery; Laterality: Right; Cranioplasty for cranial defect Right 05/29/2015 Procedure: CRANIOPLASTY; Surgeon: Livier Betancur MD; Location: [facility]; Service: Neurosurgery; Laterality: Right; Allergies Allergen [...] PLAN The patient was discharged to his usp, the [facility]. The patient was asked to return to the clinic in 2 weeks for removal of the right-sided sca lp diamond. 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 Follow up: Livier Betancur MD [address] [place] [address] [id number] In 2 weeks Staple removal [facility] [address] [place] [id number] Medication List CHANGE how you take these [...] are the prescriptions that you need to fiber picker. You may get the following medications from any pharmacy - HYDROcodone-acetaminophen 5-325 MG per tablet Discharge took 20 minutes, to include final examination, discussion of admission, and prepa ration of prescriptions, instructions for on-going care, follow-up and documentation of disc harge summary. LIVIER BETANCUR MD @ documented in this en counter Progress Notes Conversion Transaction, Provider Unknown - 06/03/2015 2:07 PM PDTFormatting of this note m ight be different from the original. Case Management by Josseline Mera RN at 06/03/15 140 Author: Josselnie Mera RN Service: (none) Author Type: Exterminator Helper Filed: 06/03/15 9377 Date of Service: 06/03/151406 Status: Signed Bull Bucker: Josseline Mera RN (Exterminator Helper) Disposition: [facility] Transportation: D Map through [employer]. All orders, signed AVS, and prescriptions have been faxed All DC paperwork completed Patient and family in agreement with discharge plan Josseline Mera onver alem Transaction, Provider Unknown - 06/03/2015 12:21 PM PDT Nurse Progress Note by Shannon Nguyen RN at 06/03/15 1221 Author: Shannon Nguyen RN Service: (none) Author Type: Registered Nurse Filed: 06/03/15 1224 Date of Service: 06/03/15 1221 Status: Signed Bull Bucker: Shannon Nguyen RN (Registered Nurse) Pt discharged back to [facility] in [place]. Paperwork previously faxed. IV removed, belon gings with transport, talha in place. Left message for mother, notifying her of D/C. No c oncerns. SHANNON Nguyen RN onver alem Transaction, Provider Unknown - 06/03/2015 11:14 AM PDT Therapy Progress Note by Yazan Main PTA at 06/03/15 1114 Author: Yazan Main PTA Service: (none) Author Type: Heliotherapist Filed: 06/03/15 1122 Date of Service: 06/03/15 1114 Status: Signed Bull Bucker: Yazan Main PTA (Heliotherapist) 06/03/15 1114 PT Last Visit PT Received [...] Alternating;Decreased robina;Scissoring;Ataxic;Narrow base Assistive Device Other (Comment) (STORY ANALYST) Activity Tolerance Activity Tolerance Patient limited by fatigue Plan Treatment/Interventions Continue per Primary PT POC Progress Progressing toward goals Recommendation Recommendations SNF PT recommendations were discussed and verified with supervising PT. Juhi Abel MA, CCC-DOCUMENT SPECIALIST - 06/03/2015 9:07 AM PDTFormatting of this note might be different fr om the original. Therapy Progress Note by Juhi Gregory MA CCC-DOCUMENT SPECIALIST at 06/03/15 09 Author: Juhi Gregory MA CCC-DOCUMENT SPECIALIST Service: (none) Author Type: Speech and Regulator Assembler ologist Filed: 06/03/15906 Date of Service: 06/03/15906 Status: Signed Bull Bucker: Juhi Gregory MA CCC-DOCUMENT SPECIALIST (Speech and Language Pathologist) 06/03/15 0850 Swallowing Assessment Eval Swallowing Treatment Yes Thin Presentation Cup Oral Phase Thin WFL Pharyngeal Phase Cough - delayed [place] Presentation Cup Oral WFL Pharyngeal Phase Delayed swallow initiated Puree Presentation Spoon Oral Phase WFL Pharyngeal Delayed Swallow Recommendations Liquids Consistency Recommendations [place] thick Diet Consistency Recommendation Pureed Recommendations Dysphagia treatment;Feeding assist;Set up with meals;Check on patients freq uently throught out meals Risk for Aspiration Moderate Compensatory Swallowing Strategies Upright as possible for all oral intake;Remain upright f or 30 minutes after meals;Slow rate presentation;Small bites/sips;Eat/feed slowly Recommended Form of Meds Meds floated in puree Summary pt eating breakfast with RN in room when DOCUMENT SPECIALIST entered. pt with delayed swallow but no [...] Care Treatment Plan Continue with current plan onversion T ransaction, Provider Unknown - 06/03/2015 9:07 AM PDTFormatting of this note might be diffe rent from the original. Case Management by Josseline Mera RN at 06/03/15906 Author: Josseline Mera RN Service: (none) Author Type: Exterminator Helper Filed: 06/03/15907 Date of Service: 06/03/15906 Status: Signed Bull Bucker: Josseline Mera RN (Exterminator Helper) Gladis Regan will accept Krueger back when appropriate. Paperwork on front of chart f or MD signature. Ken Rivera MD - 06/02/2015 10:55 AM PDT Progress Notes by Ken Foster MD at 06/02/15 105 Author: Ken Foster MD Service: Neurosurgery Author Type: Physician Filed: 06/02/15 1057 Date of Service: 06/02/151054 Status: Signed Bull Bucker: Ken Foster MD (Physician) Subjective: POD#4 No [...] Therapy Progress Note by Mere Hardy MA CCC-DOCUMENT SPECIALIST at 06/01/151625 Author: Mere Hardy MA CCC-DOCUMENT SPECIALIST Service: (none) Author Type: Speech and Language Patholo gist Filed: 06/01/151625 Date of Service: 06/01/151625 Status: Signed Bull Bucker: Mere Hardy MA CCC-DOCUMENT SPECIALIST (Speech and Language Pathologist) 06/01/15 160 Swallowing Assessment Eval Swallowing Treatment Yes Initial Swallow Assessment Respiratory Status Room air Behavior/Cognition Cooperative;Alert;Confused;Impulsive;Distractible Dentition Adequate;Some missing teeth Vision Functional for self-feeding Patient Positioning Upright in bed Baseline Vocal Quality Weak Consistencies Consistencies Assessed Yes Thin Presentation Cup;Self Fed Oral Phase Thin WFL Pharyngeal Phase Delayed swallow initiated;Decreased laryngeal elevation upon palpation;Cou gh - delayed;Spontaneous multiple swallow [place] Presentation Cup;Self Fed Oral WFL Pharyngeal Phase No overt signs or symptoms of aspiration;Delayed swallow initiated;Decreas ed laryngeal elevation upon palpation Puree Presentation Self Fed;Spoon Oral Phase WFL Pharyngeal No overt signs or symptoms of aspiration;Delayed Swallow Dysphagia Mechanically Altered Presentation Spoon;Self Fed Oral Phase Prolonged mastication Pharyngeal Phase Cough - Immediate;Delayed Swallow;Decreased Laryngeal Elevation Recommendations Liquids Consistency Recommendations [place] thick Diet Consistency Recommendation Pureed Recommendations Dysphagia [...] on current diet. ST to follow for izabel ow safety and diet tolerance monitoring and assess/treat cog. Staff Notified MD;RN Plan of Care Treatment Plan ST to follow;Cognitive evaluation/treatment;Daily 4 to 6 times a week;Contin ue with current plan Follow up treatments Swallow strategies;Diet tolerance monitoring;Patient/Family education; Assessment for upgrade Dysphagia Goals Knot Tier Goals Safe/efficient oral intake Pt will have safe/efficient oral intake [place] thick liquids;Dysphagia advanced diet;With max cues Short Term Goals Tolerate liquid consistency;Follow swallow precautions Pt will tolerate tolerate liquid consistency [place] thick liquids;With max supervision;Goa l progressing Pt will follow swallow precautions With mod supervision;Goal progressing onver alem Transaction, Provider Unknown - 06/01/2015 12:40 PM PDT Progress Notes by Fede Bonner at 06/01/15 1240 Author: Fede Bonner Service: (none) Author Type: Filed: 06/01/15 1242 Date of Service: 06/01/151239 Status: Signed Bull Bucker: Fede Bonner () Tony is from [place], but says he lives on the [facility]. Stated he has bee n in the hospital for a month and gets lonely. 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 Lead RN is thinking about moving him to a room near more activity. Chaplain Fede Bonner BCC en Foster MD - 06/01/2015 9:08 AM PDT Progress Notes by Ken Foster MD at 06/01/15 0908 Author: Ken Foster MD Service: Neurosurgery Author Type: Physician Filed: 06/01/15909 Date of Service: 06/01/15907 Status: Signed Bull Bucker: Ken Foster MD (Physician) Subjective: POD#3 Transferred [...] could be returned to his care fac [facility] Wednesday or Wednesday. onversion Transact ion, Provider Unknown - 05/31/2015 12:04 PM PDTFormatting of this note might be different fr om the original. Progress Notes by Hany Templeton RD at 05/31/15 1204 Author: Hany Templeton RD Service: (none) Author Type: Registered Dietitian Filed: 05/31/15 120 Date of Service: 05/31/151203 Status: Signed Bull Bucker: Hany Templeton RD (Registered Dietitian) 05/31/15 1210 Subjective Timepoint Admit (Triggers for dysphagia. ) Pt c/o Pt admitted for seizures, has hx of craniectiomy, is POD # 2R [id number] cranioplasty, POD # 1 R bone flap [...] dysphagia pureed, NT liquid, house diet per DOCUMENT SPECIALIST recommend ations. Add magic cups to meal [...] and Rehab Author Type: Physical Therapist Filed: 05/31/15 1929 Date of Service: 05/31/151115 Status: Signed Bull Bucker: Ki Martinez PT (Physical Therapist) 05/31/15 1116 [...] Service: Neurosurgery Author Type: Physician Filed: 05/31/15 1306 Date of Service: 05/31/15917 Status: Signed Bull Bucker: Livier Betancur MD (Physician) POD#2 The patient [...] could be returned to his care fac [facility]. onnarcisa Transactio n, Provider Unknown - 05/31/2015 8:55 AM PDT Case Management by TABITHA Sidhu at 05/31/15 0855 Author: TABITHA Sidhu Service: (none) Author Type: Machine Overhauler Filed: 05/31/15 1438 Date of Service: 05/31/1555 Status: Addendum Bull Bucker: TABITHA Sidhu (Machine Overhauler) Related Notes: Original Note by TABITHA Sidhu (Machine Overhauler) filed at 05/31/15 0856 Placed t/c to Dianan at [facility]. Left message requesting a return call as i have no t heard from her since I faxed the referral. Await her return call. Addendum: 1400: Received return call from Debora at [facility]. Pt is accepted for a dmit when he is medically stable. Tabitha Cooley PT - 05/30/2015 3:49 PM PDTFormatting of this note might be different from th e original. Therapy Progress Note by Keiry Weiss PT at 05/30/15 0499 Author: Keiry Weiss PT Service: (none) Author Type: Physical Therapist Filed: 05/30/15 180 Date of Service: 05/30/151548 Status: Signed Bull Bucker: Keiry Weiss, PT (Physical Therapist) 05/30/15 1549 PT Last Visit PT Received [...] Pt had been most recently staying at [facility] in [place]. Pt was getti ng agitated with questions and not wanting to respond. Prior Function Level of [place] Assist with functional mobility;Assist with ADLs;Assist with IADLs (while at [facility], unclear functional mobility prior) Lives With Alone Receives Help From Family (silblings) Comments difficult to ascertain- pt reported spending most of his time in w/c at [facility] an d needing help with all transfers. [...] Barriers to Discharge Physical Deficits Impacting Functional [place];Self-care Deficit s Impacting Functional [place] 05/30/15 1549 PT Last Visit PT Received [...] Barriers to Discharge Physical Deficits Impacting Functional [place];Self-care Deficit s Impacting Functional [place] onversion Transa ction, Provider Unknown - 05/30/2015 3:10 PM PDT Therapy Progress Note by Carmela Wilcox MS CCC-DOCUMENT SPECIALIST at 05/30/15 1452 Author: Carmela Wilcox MS CCC-DOCUMENT SPECIALIST Service: (none) Author Type: Speech and Regulator Assembler ologist Filed: 05/30/15 6105 Date of Service: 09/10/15 1510 Status: Signed Bull Bucker: Carmela Wilcox MS CCC-DOCUMENT SPECIALIST (Speech and Language Pathologist) 05/30/15 1500 Swallowing [...] Pharyngeal Phase Delayed swallow initiated;Cough - delayed [place] Presentation Cup;Self Fed Oral Increased Anterior to [...] Cough - Delayed Recommendations Liquids Consistency Recommendations [place] thick;Ice chips for oral comfort Diet Consistency [...] education;Assessment for upgr khadijah;Swallow strategies Dysphagia Goals Skilled Nursing Goals Safe/efficient oral intake Pt will have safe/efficient oral intake [place] thick liquids;Dysphagia advanced diet;With max cues Short Term Goals Tolerate liquid consistency;Follow swallow precautions Pt will tolerate tolerate liquid consistency [place] thick liquids;With max supervision Pt will follow swallow precautions With mod supervision;New/revised goal RDStLivier bustamante - 05/30/2015 8:48 AM PDTFormatting of this note might be different from the or iginal. Progress Notes by Livier Betancur MD at 05/30/15847 Author: Livier Betancur MD Service: Neurosurgery Author Type: Physician Filed: 05/30/15 1230 Date of Service: 05/30/15847 Status: Signed Bull Bucker: Livier Betancur MD (Physician) POD#1 The patient [...] physical therapy to see the patient . ouchinOdalys ARNP - 05/30/2015 6:40 AM PDT Progress Notes by JENNIFER Mendoza at 05/30/15639 Author: JENNIFER Mendoza Service: Traction Power Engineer Author Type: Nurse Practitioner Filed: 05/30/15 1123 Date of Service: 05/30/15639 Status: Signed Bull Bucker: JENNIFER Mendoza (Nurse Practitioner) [facility] Service: Traction Power Engineer Progress Note Krueger Silkecharlene 54 y.o. Hospital Day: LOS: 2 days [...] since placed. More alert. NS plan reviewed, jarrod riggs for additional day in ICU SCHEDULED MEDICATIONS [...] ows, sacrum or heels LINES/TUBES: a line, yip, PIVs DATA Recent Labs Lab 05/30/1525805/29/15 1731 [...] -- MG 1.8 -- Recent Labs Lab 05/30/1525805/29/15 160[address] Head [...] Service: Neurosurgery Author Type: Physician Filed: 05/29/15 142 Date of Service: 05/29/151420 Status: Signed Bull Bucker: Livier Betancur MD (Physician) ICU nurse states the patient seems more lethargic. I will plan a return to the OR now to e valuate the pressure present beneath the right-sided cranial flap. onversion Transactio n, Provider Unknown - 05/29/2015 1:24 PM PDT Case Management by TABITHA Sidhu at 05/29/15 1328 Author: TABITHA Sidhu Service: (none) Author Type: Machine Overhauler Filed: 05/29/15 1329 Date of Service: 05/29/151323 Status: Signed Bull Bucker: ATBITHA Sidhu (Machine Overhauler) 05/29/15 1326 Discharge Planning Evaluation Admitting Diagnosis Right rpqcwo-[id number] cranioplasty Readmission Other (comment) Living Arrangements Other (Comment) (skilled nursing) Support Systems Parent Type of Residence [facility] facility ([facility]) Independent with ADL's No-comment Independent with Mobility No-comment (require w/c) Home Care Services No Mental Status Other (comment) (just starting to follow commands after surgery) Prior functional status Previously at [facility] and [facility]. Richelle is at [facility] and mother states that plan is to retun there. Anticipated Discharge Plan Plan communicated to patient/family Yes Resources Financial concerns No Transportation issues No Patient/Family concerns No Prescription Plan Yes Anticipated Disposition Facility Type [facility] facility Retirement Facility Other (comment) ([facility]) Met with: pt's mother Teressa who tells me she is the healthcare decision-maker for pt and discussed discharge planning, Pt is a 54 y.o., male s/p cranioplasty. Pt has been at [facility] for the last 2-3 months per mother. Plan is for pt to live with his mother donal ut he requires significant care at this time. E-faxed referral to Dianna at [facility]. Patient's PCP is: [facility] Patient's insurance:[place] Medicaid - [place] Coverage concerns: Medication coverage/concerns: Nahun'eliseo Bedside Delivery: Community resources utilized / needed: Assistance in transportation: may need ambulance transfer back to [place] Identification of any specific education / training: Barriers to Discharge / Alternative housing needed: Anticipated DCP: Back to [facility]. Referral faxed to [facility]. HAYES STEEN Livier Briseno - 05/29/2015 12:37 PM PDTFormatting of this note might be different from the or iginal. Progress Notes by Livier Betancur MD at 05/29/15 8020 Author: Livier Betancur MD Service: Neurosurgery Author Type: Physician Filed: 05/31/15 5766 Date of Service: 05/29/15 0532 Status: Addendum Bull Bucker: Livier Betancur MD (Physician) Related Notes: Original Note by Livier Betancur MD (Physician) filed at 05/29/15 5795 EXAM: Patient does nod his head yes [...] Nurse Progress Note by Pelon Galan at 05/29/151218 Author: Pelon Galan Service: Wound/Ostomy Care Author Type: Nurse Manager French Filed: 05/29/15 1220 Date of Service: 05/29/151218 Status: Signed Bull Bucker: Pelon Galan (Nurse Manager French) Patient seen today for low Bon score. Patient's score 13*. Patient is at moderate risk for pressure ulcer. At this time no skin breakdown per ICU nurse. Care plan in place. SP OT in place. onver alem Transaction, Provider Unknown - 05/29/2015 12:10 PM PDT Progress Notes by Debra Fitzpatrick RPH at 05/29/15 121 Author: Debra Fitzpatrick RPH Service: (none) Author Type: Pharmacist Filed: 05/29/151209 Date of Service: 05/29/151209 Status: Signed Bull Bucker: Debra Fitzpatrick RPH (Pharmacist) Renal Dosing Monitoring: Tony Mcguire 54 y.o. male Pharmacy dosing for renal function per Dr. Rios SCr = 0.62, est CrCl = 139 Plan per protocol: Based on current levels, medications do not require ajdustments for renal function. Pharmacy will continue monitoring patient for appropriate dosing per renal function. 05/29/2015 12:07 PM Pharmacist: Debra Fitzpatrick >> JOYCE HERNANDEZ 05/28/2015 11:20 Clinical Pharmacy Note: Renal Monitoring Tony cMguire 54 y.o. male Ht Readings from Last 1 Encounters: 05/28/15 1.778 m (5' 10") Wt Readings from Last 1 Encounters: 05/28/15 78.9 kg (173 lb 15.1 oz) CREATININE Date Value Ref Range Status 11/26/2014 0.62* 0.70 - 1.30 mg/dL Final Comment: Testing performed at [facility], [address] [place] [address] Creatinine clearance cannot be calculated (Patient's most recent sCr result is older than t he maximum 3 days allowed.) Pharmacy dosing for renal function per Dr. Rios. Currently, there are no medications needing to be adjusted. Pharmacy will continue to monit or for changes in medication orders and in renal function and adjust accordingly. Joyce Hernandez RPh 05/28/2015 11:20 AM RDStLivier bustamante - 05/29/2015 9:54 AM PDTFormatting of this note might be different from the or iginal. Progress Notes by Livier Betancur MD at 05/29/15 0954 Author: Livier Betancur MD Service: Neurosurgery Author Type: Physician Filed: 05/29/15 1003 Date of Service: 05/29/1554 Status: Signed Bull Bucker: Livier Betancur MD (Physician) POD#1 The patient [...] 11:20 AM PDT Progress Notes by Joyce Hernandez RPH at 05/28/151119 Author: Joyce Hernandez RPH Service: (none) Author Type: Pharmacist Filed: 05/28/151119 Date of Service: 05/28/151119 Status: Signed Bull Bucker: Joyce Hernandez RPH (Pharmacist) Clinical Pharmacy Note: Renal Monitoring Tony Mcguire 54 y.o. male Ht Readings from Last 1 Encounters: 05/28/15 1.778 m (5' 10") Wt Readings from Last 1 Encounters: 05/28/15 78.9 kg (173 lb 15.1 oz) CREATININE Date Value Ref Range Status 11/26/2014 0.62* 0.70 - 1.30 mg/dL Final Comment: Testing performed at [facility], [address] [place] [address] Creatinine clearance cannot be calculated (Patient's most recent sCr result is older than t he maximum 3 days allowed.) Pharmacy dosing for renal function per Dr. Rios. Currently, there are no medications needing to be adjusted. Pharmacy will continue to monit or for changes in medication orders and in renal function and adjust accordingly. Joyce Hernandez [facility] 05/28/2015 11:20 AM onver alem Transaction, Provider Unknown - 05/28/2015 11:17 AM PDT Nurse Progress Note by Anna Gates RN at 05/28/15 1117 Author: Anna Gates RN Service: (none) Author Type: Registered Nurse Filed: 05/28/15 1118 Date of Service: 05/28/15 1117 Status: Signed Bull Bucker: Anna Gates RN (Registered Nurse) Report from Shayna at [facility] states that patient has been NPO [...] Filed: 05/28/15 1042 Date of Service: 05/28/15 1041 Status: Signed Bull Bucker: Anna Gates RN (Registered Nurse) Lamine from the lab at [facility] to fax MRSA PCR results and U/A results. Anna Gates RN 05/28/2015, 10:42 AM docume nted in this encounter Plan of Treatment +--------+---------+ + + + | Date | Type | Specialty | Care Team | Description | +--------+---------+ + + + | 10/16/ | Office | Orthopedic Surgery | David Lux, | | | 2019 | Visit | | [place] [address] | | | | | | [address]IG[address] [place] [facility] [address] | | | | | | [place] [address] | | | | | | [phone] | | | | | | | [...] EXTERNAL | | | | performed at [facility];888 | mmol/L | LAB | | | | [address];[place], [place] | | | | | | [address] | | | | + + + [...] EXTERNAL | | | | performed at [facility];[address] | | LAB | | | | [address];[place], [place] | | | | | | [address] | | | | + + + [...] | | | | | [place] [address] | | | | + + + + + + | RED CELL | 3.20 (L)Comment: Testing | 4.20 - 5.70 | EXTERNAL | | | COUNT | performed at [facility], [address] | M/uL | LAB | | | | [address], | | | | | | [place] [address] | | | | + + + + + + | Hgb | 8.9 (L)Comment: Testing | 13.2 - 17.0 | EXTERNAL | | | | performed at [facility], [address] | g/dL | LAB | | | | [address], | | | | | | [place] [address] | | | | + + + + + + | Hematocrit, | 27.2 (L)Comment: Testing | 39.0 - 50.0 % | EXTERNAL | | | POC | performed at [facility], [address] | | LAB | | | | [address], | | | | | | [place] [address] | | | | + + + + + + | MCV | 85.1Comment: Testing | 80.0 - 100.0 fl | EXTERNAL | | | | performed at [facility], [address] | | LAB | | | | [address], | | | | | | [place] [address] | | | | + + + + + + | MCH | 27.7Comment: Testing | 27.0 - 34.0 pg | EXTERNAL | | | | performed at [facility], [address] | | LAB | | | | [address], | | | | | | [place] [address] | | | | + + + + + + | MCHC | 32.6Comment: Testing | 32.0 - 35.5 | EXTERNAL | | | | performed at [facility], [address] | g/dL | LAB | | | | [address], | | | | | | [place] [address] | | | | + + + + + + | RDW-CV | 49.0Comment: Testing | 37 - 53 fl | EXTERNAL | | | | performed at [facility], [address] | | LAB | | | | [address], | | | | | | [place] [address] | | | | + + + + + + | Platelet | 103 (L)Comment: Testing | 150 - 400 K/uL | EXTERNAL | | | Count | performed at [facility], [address] | | LAB | | | Plasma | [address], | | | | | | [place] [address] | | | | + + + + + + | MPV | 9.1Comment: Testing | fl | EXTERNAL | | | | performed at [facility], [address] | | LAB | | | | [address], | | | | | | [place] [address] | | | | + + + + + + | Differentia | AUTOMATEDComment: | | EXTERNAL | | | l Type | Testing performed at | | LAB | | | | [facility], [address] | | | | | | [place] | | | | | | [address] | | | | + + + + + + | % Segmented | 70.80Comment: Testing | % | EXTERNAL | | | | performed at [facility], [address] | | LAB | | | Neutrophils | [address], | | | | | | [place] [address] | | | | + + + + + + | % | 19.56Comment: Testing | % | EXTERNAL | | | Lymphocytes | performed at [facility], [address] | | LAB | | | | [address], | | | | | | [place] [address] | | | | + + + + + + | % Monocytes | 8.15Comment: Testing | % | EXTERNAL | | | | performed at [facility], [address] | | LAB | | | | [address], | | | | | | [place] [address] | | | | + + + + + + | % | 1.12Comment: Testing | % | EXTERNAL | | | Eosinophils | performed at [facility], [address] | | LAB | | | | [address], | | | | | | [place] [address] | | | | + + + + + + | % Basophils | 0.37Comment: Testing | % | EXTERNAL | | | | performed at [facility], [address] | | LAB | | | | [address], | | | | | | [place] [address] | | | | + + + + + + | Absolute | 4.40Comment: Testing | 1.90 - 7.40 | EXTERNAL | | | Segmented | performed at [facility], [address] | K/uL | LAB | | | Neutrophils | [address], | | | | | | [place] [address] | | | | + + + + + + | Absolute | 1.22Comment: Testing | 1.00 - 3.90 | EXTERNAL | | | Lymphocytes | performed at [facility], [address] | K/uL | LAB | | | | [address], | | | | | | [place] [address] | | | | + + + + + + | Absolute | 0.51Comment: Testing | 0.00 - 0.80 | EXTERNAL | | | Monocytes | performed at [facility], [address] | K/uL | LAB | | | | [address], | | | | | | [place] [address] | | | | + + + + + + | Absolute | 0.07Comment: Testing | 0.00 - 0.50 | EXTERNAL | | | Eosinophils | performed at [facility], [address] | K/uL | LAB | | | | [address], | | | | | | [place] [address] | | | | + + + + + + | Absolute | 0.02Comment: Testing | 0.00 - 0.10 | EXTERNAL | | | Basophils | performed at [facility], [address] | K/uL | LAB | | | | [address], | | | | | | [place] [address] | | | | + + + [...] | | | | | [place] [address] | | | | + + + [...] | | | | | [place] [address] | | | | + + + [...] | | | | | [place] [address] | | | | + + + + + + | K | 3.8Comment: Testing | 3.5 - 4.9 | EXTERNAL | | | | performed at [facility], [address] | mmol/L | LAB | | | | [address], | | | | | | [place] [address] | | | | + + + + + + | Cl | 106Comment: Testing | 99 - 109 mmol/L | EXTERNAL | | | | performed at [facility], [address] | | LAB | | | | [address], | | | | | | [place] [address] | | | | + + + + + + | CO2 | 27Comment: Testing | 23 - 32 mmol/L | EXTERNAL | | | | performed at [facility], [address] | | LAB | | | | [address], | | | | | | [place] [address] | | | | + + + + + + | Anion Gap | 7Comment: Testing | 5 - 20 mmol/L | EXTERNAL | | | | performed at [facility], [address] | | LAB | | | | [address], | | | | | | [place] [address] | | | | + + + + + + | Glucose, | 99Comment: Testing | 65 - 99 mg/dL | EXTERNAL | | | Fasting | performed at [facility], [address] | | LAB | | | | [address], | | | | | | [place] [address] | | | | + + + + + + | BUN | 4 (L)Comment: Testing | 8 - 25 mg/dL | EXTERNAL | | | | performed at [facility], [address] | | LAB | | | | [address], | | | | | | [place] [address] | | | | + + + + + + | Creatinine | 0.48 (L)Comment: Testing | 0.70 - 1.30 | EXTERNAL | | | | performed at [facility], [address] | mg/dL | LAB | | | | [address], | | | | | | [place] [address] | | | | + + + + + + | BUN/Creatin | 8Comment: Testing | | EXTERNAL | | | ine Ratio | performed at [facility], [address] | | LAB | | | | [address], | | | | | | [place] [address] | | | | + + + + + + | Calcium | 8.3 (L)Comment: Testing | 8.5 - 10.5 | EXTERNAL | | | | performed at [facility], [address] | mg/dL | LAB | | | | [address], | | | | | | [place] [address] | | | | + + + [...] [address], | | | | | | [place] [address] | | | | + + + [...] EXTERNAL | | | | performed at [facility];[address] | mmol/L | LAB | | | | [address];[place] | | | | | | [address] | | | | + + + [...] EXTERNAL | | | | performed at [facility];[address] | | LAB | | | | [address];[place] | | | | | | [address] | | | | + + + [...] EXTERNAL | | | | performed at [facility];[employer] | | LAB | | | | [address];[place], [place] | | | | | | [address] | | | | + + + [...] drain | | | placement. 2. Improved sazqu-ng-sgxt midline shift. [facility] | | | Electronically signed by Joshua Rivera MD on May 30 2015 10:35AM | | | Referring Provider Line: [phone] ID: [id number] | | + + + [...] has improved. There is | | | lltni-tj-gnlv midline shift measuring at least 5 mm [...] seen. Intracranial pneumocephalus has improved. There is tshqa-ze-jyil midline shift | | measuring at least [...] interval subdural drain placement.2. | | Improved mehks-vs-hsjl midline shift. RADIA Electronically signed by Joshua Rivera MD | | on May 30 2015 10:35AM Referring Provider Line: [phone] ID: [id number] | | | |Sinuses: Paranasal [...] molina bdural drain placement. | |2. Improved qmara-rd-odnd midline shift. | | | |RADIA | | | | Electronically signed by Joshua Rivera MD on May 30 2015 10:35AM Referring Provider Line: [phone] ID: [id number] | + + PTT (05/30/2015 2:59 AM PDT) + + + + + + | Component | Value | Ref Range | Performed | Pathologist | | | | | At | Signature | + + + + + + | aPTT, | 33 (H)Comment: Testing | 23 - 32 seconds | EXTERNAL | | | Patient | performed at [facility];[address] | | LAB | | | | [address];[place] | | | | | | [address] | | | | + + + [...] | | | | | performed at [facility];[address] | | | | | | [facility];[place], [place] | | | | | | [address] | | | | + + + + + + + + | Specimen | + + | Blood specimen | | (specimen) | + + + +---------+ + + | Performing | Address | City/State/Zipcode | Phone Number | | Organization | | | | + +---------+ + + | EXTERNAL LAB | | | | + +---------+ + + External Lab: MARJ (05/30/2015 2:59 AM PDT) + + + [...] | | | | | [place] [address] | | | | + + + + + + | RED CELL | 3.24 (L)Comment: Testing | 4.20 - 5.70 | EXTERNAL | | | COUNT | performed at [facility], [address] | M/uL | LAB | | | | [address], | | | | | | [place] [address] | | | | + + + + + + | Hgb | 8.8 (L)Comment: Testing | 13.2 - 17.0 | EXTERNAL | | | | performed at [facility], [address] | g/dL | LAB | | | | [address], | | | | | | [place] [address] | | | | + + + + + + | Hematocrit, | 27.5 (L)Comment: Testing | 39.0 - 50.0 % | EXTERNAL | | | POC | performed at [facility], [address] | | LAB | | | | [address], | | | | | | [place] [address] | | | | + + + + + + | MCV | 85.1Comment: Testing | 80.0 - 100.0 fl | EXTERNAL | | | | performed at [facility], [address] | | LAB | | | | [address], | | | | | | [place] [address] | | | | + + + + + + | MCH | 27.3Comment: Testing | 27.0 - 34.0 pg | EXTERNAL | | | | performed at [facility], [address] | | LAB | | | | [address], | | | | | | [place] [address] | | | | + + + + + + | MCHC | 32.1Comment: Testing | 32.0 - 35.5 | EXTERNAL | | | | performed at [facility], [address] | g/dL | LAB | | | | [address], | | | | | | [place] [address] | | | | + + + + + + | RDW-CV | 47.3Comment: Testing | 37 - 53 fl | EXTERNAL | | | | performed at [facility], [address] | | LAB | | | | [address], | | | | | | [place] [address] | | | | + + + + + + | Platelet | 117 (L)Comment: Testing | 150 - 400 K/uL | EXTERNAL | | | Count | performed at [facility], [address] | | LAB | | | Plasma | [address], | | | | | | [place] [address] | | | | + + + + + + | MPV | 9.7Comment: Testing | fl | EXTERNAL | | | | performed at [facility], [address] | | LAB | | | | [address], | | | | | | [place] [address] | | | | + + + + + + | Differentia | AUTOMATEDComment: | | EXTERNAL | | | l Type | Testing performed at | | LAB | | | | [facility], [address] | | | | | | [place] | | | | | | [address] | | | | + + + + + + | % Segmented | 72.39Comment: Testing | % | EXTERNAL | | | | performed at [facility], [address] | | LAB | | | Neutrophils | [address], | | | | | | [place] [address] | | | | + + + + + + | % | 16.63Comment: Testing | % | EXTERNAL | | | Lymphocytes | performed at [facility], [address] | | LAB | | | | [address], | | | | | | [place] [address] | | | | + + + + + + | % Monocytes | 10.39Comment: Testing | % | EXTERNAL | | | | performed at [facility], [address] | | LAB | | | | [address], | | | | | | [place] [address] | | | | + + + + + + | % | 0.31Comment: Testing | % | EXTERNAL | | | Eosinophils | performed at [facility], [address] | | LAB | | | | [address], | | | | | | [place] [address] | | | | + + + + + + | % Basophils | 0.28Comment: Testing | % | EXTERNAL | | | | performed at [facility], [address] | | LAB | | | | [address], | | | | | | [place], [place] [address] | | | | + + + + + + | Absolute | 5.32Comment: Testing | 1.90 - 7.40 | EXTERNAL | | | Segmented | performed at [facility], [address] | K/uL | LAB | | | Neutrophils | [address], | | | | | | [place] [address] | | | | + + + + + + | Absolute | 1.22Comment: Testing | 1.00 - 3.90 | EXTERNAL | | | Lymphocytes | performed at [facility], [address] | K/uL | LAB | | | | [address], | | | | | | [place] [address] | | | | + + + + + + | Absolute | 0.76Comment: Testing | 0.00 - 0.80 | EXTERNAL | | | Monocytes | performed at [facility], [address] | K/uL | LAB | | | | [address], | | | | | | [place] [address] | | | | + + + + + + | Absolute | 0.02Comment: Testing | 0.00 - 0.50 | EXTERNAL | | | Eosinophils | performed at [facility], [address] | K/uL | LAB | | | | [address], | | | | | | [place] [address] | | | | + + + + + + | Absolute | 0.02Comment: Testing | 0.00 - 0.10 | EXTERNAL | | | Basophils | performed at [facility], [address] | K/uL | LAB | | | | [address], | | | | | | [place] [address] | | | | + + + [...] | | | | | [place] [address] | | | | + + + [...] [address], | | | | | | [place] [address] | | | | + + + [...] | | | | | [place] [address] | | | | + + + + + + | K | 3.7Comment: Testing | 3.5 - 4.9 | EXTERNAL | | | | performed at [facility], [address] | mmol/L | LAB | | | | [address], | | | | | | [place] [address] | | | | + + + + + + | Cl | 106Comment: Testing | 99 - 109 mmol/L | EXTERNAL | | | | performed at [facility], [address] | | LAB | | | | [address], | | | | | | [place] [address] | | | | + + + + + + | CO2 | 27Comment: Testing | 23 - 32 mmol/L | EXTERNAL | | | | performed at [facility], [address] | | LAB | | | | [address], | | | | | | [place] [address] | | | | + + + + + + | Anion Gap | 6Comment: Testing | 5 - 20 mmol/L | EXTERNAL | | | | performed at [facility], [address] | | LAB | | | | [address], | | | | | | [place] [address] | | | | + + + + + + | Glucose, | 106 (H)Comment: Testing | 65 - 99 mg/dL | EXTERNAL | | | Fasting | performed at [facility], [address] | | LAB | | | | [address], | | | | | | [place] [address] | | | | + + + + + + | BUN | 5 (L)Comment: Testing | 8 - 25 mg/dL | EXTERNAL | | | | performed at [facility], [address] | | LAB | | | [address], | | | | | | [place] [address] | | | | + + + + + + | Creatinine | 0.50 (L)Comment: Testing | 0.70 - 1.30 | EXTERNAL | | | | performed at [facility], [address] | mg/dL | LAB | | | | [address], | | | | | | [place] [address] | | | | + + + + + + | BUN/Creatin | 10Comment: Testing | | EXTERNAL | | | ine Ratio | performed at [facility], [address] | | LAB | | | | [address], | | | | | | [place] [address] | | | | + + + + + + | Calcium | 8.1 (L)Comment: Testing | 8.5 - 10.5 | EXTERNAL | | | | performed at [facility], [address] | mg/dL | LAB | | | | [facility], | | | | | | [place] [address] | | | | + + + [...] W | | | | | | [address], | | | | | | [place] [address] | | | | + + + [...] At | + + + | TONY MCGUIRE XR CHEST 1 VIEW HISTORY: 54 years. [...] Marlon Santamaria - 05/05/2019 12:20 AM PDT KRUEGER LAVADOURXR CHEST 1 VIEW | | HISTORY:54 years. [...] | | | Count | performed at [facility];[address] | | LAB | | | Plasma | [address];[place], [place] | | | | | | [address] | | | | + + + [...] At | + + + | TONY MCGUIRE XR CT PORTABLE HEAD UNENHANCED HISTORY: 54 [...] Conversion - 05/05/2019 12:20 AM PDT TONY LANDRYURXR CT PORTABLE HEAD | | UNENHANCED HISTORY:54 [...] | | | Patient | performed at [facility];[address] | | LAB | | | | [address];[place], [place] | | | | | | [address] | | | | + + + [...] | | | | | performed at [facility];[address] | | | | | | [address] [facility];[place] | | | | | | [address] | | | | + + + [...] EXTERNAL | | | | performed at [facility];[address] | | LAB | | | | [address];[place], [place] | | | | | | [address] | | | | + + + [...] | | | | | performed at [facility];[address] | | | | | | [address];[place], [place] | | | | | | [address] | | | | + + + + + + + + | Specimen | + + | Blood specimen | | (specimen) | + + + +---------+ + + | Performing | Address | City/State/Zipcode | Phone Number | | Organization | | | | + +---------+ + + | EXTERNAL LAB | | | | + +---------+ + + KANCHAN CARR CG8 Arterial (05/29/2015 3:27 PM PDT) + + + + + + | Component | Value | Ref Range | Performed | Pathologist | | | | | At | Signature | + + + + + + | PH ART | 7.457 (H)Comment: | 7.350 - 7.450 | EXTERNAL | | | | Testing performed at | | LAB | | | | [facility];[address];[place] [address] | | | | + + + + + + | PCO2 ART | 37Comment: Testing | 35 - 45 mmHg | EXTERNAL | | | | performed at [facility];[address] | | LAB | | | | [address];[place] | | | | | | [address] | | | | + + + + + + | PO2 ART | 208 (H)Comment: Testing | 80 - 105 mmHg | EXTERNAL | | | | performed at [facility];[address] | | LAB | | | | [address];[place] | | | | | | [address] | | | | + + + + + + | HCO3 ART | 26Comment: Testing | 22 - 26 mmol/L | EXTERNAL | | | | performed at [facility];[address] | | LAB | | | | [address];[place] | | | | | | [address] | | | | + + + + + + | POC | 27Comment: Testing | 23 - 27 mEq/L | EXTERNAL | | | APPEARANCE | performed at [facility];[address] | | LAB | | | UA | [address];[place] | | | | | | [address] | | | | + + + + + + | Base | 2Comment: Testing | 0 - 3 mEq/L | EXTERNAL | | | Excess, | performed at [facility];[address] | | LAB | | | Arterial | [address];[place] | | | | | | [address] | | | | + + + + + + | O2 SAT ART | 100 (H)Comment: Testing | 95 - 98 % | EXTERNAL | | | | performed at [facility];[address] | | LAB | | | | [address];[place] | | | | | | [address] | | | | + + + + + + | Sodium, POC | 134 (L)Comment: Testing | 135 - 145 mEq/L | EXTERNAL | | | | performed at [facility];[address] | | LAB | | | | [address];[place] | | | | | | [address] | | | | + + + + + + | Potassium, | 3.6Comment: Testing | 3.5 - 5.0 mEq/L | EXTERNAL | | | POC | performed at [facility];[address] | | LAB | | | | [address];[place] | | | | | | [address] | | | | + + + + + + | Ionized | 1.09 (L)Comment: Testing | 1.12 - 1.32 | EXTERNAL | | | Calcium, | performed at [facility];[address] | mmol/L | LAB | | | POC | [address];[place] | | | | | | [address] | | | | + + + + + + | Glucose, | 191 (H)Comment: Testing | 65 - 99 mg/dL | EXTERNAL | | | POC | performed at [facility];[address] | | LAB | | | | [address];[place] | | | | | | [address] | | | | + + + + + + | Hematocrit, | 35 (L)Comment: Testing | 40.0 - 50.0 % | EXTERNAL | | | POC | performed at [facility];[address] | | LAB | | | | [address];[place] | | | | | | [address] | | | | + + + + + + | Hemoglobin, | 11.9 (L)Comment: Testing | 13.7 - 16.7 | EXTERNAL | | | POC | performed at [facility];[address] | g/dL | LAB | | | | [address];[place] | | | | | | [address] | | | | + + + [...] | | | | | [place] [address] | | | | + + + + + + | RED CELL | 4.00 (L)Comment: Testing | 4.20 - 5.70 | EXTERNAL | | | COUNT | performed at [facility], [address] | M/uL | LAB | | | | [address], | | | | | | [place] [address] | | | | + + + + + + | Hgb | 11.0 (L)Comment: Testing | 13.2 - 17.0 | EXTERNAL | | | | performed at [facility], [address] | g/dL | LAB | | | | [address], | | | | | | [place] [address] | | | | + + + + + + | Hematocrit, | 33.7 (L)Comment: Testing | 39.0 - 50.0 % | EXTERNAL | | | POC | performed at [facility], [address] | | LAB | | | | [address], | | | | | | [place] [address] | | | | + + + + + + | MCV | 84.3Comment: Testing | 80.0 - 100.0 fl | EXTERNAL | | | | performed at [facility], [address] | | LAB | | | | [address], | | | | | | [place] [address] | | | | + + + + + + | MCH | 27.6Comment: Testing | 27.0 - 34.0 pg | EXTERNAL | | | | performed at [facility], [address] | | LAB | | | | [address], | | | | | | [place] [address] | | | | + + + + + + | MCHC | 32.8Comment: Testing | 32.0 - 35.5 | EXTERNAL | | | | performed at [facility], [address] | g/dL | LAB | | | | [address], | | | | | | [place] [address] | | | | + + + + + + | RDW-CV | 45.1Comment: Testing | 37 - 53 fl | EXTERNAL | | | | performed at [facility], [address] | | LAB | | | | [address], | | | | | | [place] [address] | | | | + + + + + + | Platelet | 135 (L)Comment: Testing | 150 - 400 K/uL | EXTERNAL | | | Count | performed at [facility], [address] | | LAB | | | Plasma | [address], | | | | | | [place] [address] | | | | + + + + + + | MPV | 9.2Comment: Testing | fl | EXTERNAL | | | | performed at [facility], [address] | | LAB | | | | [address], | | | | | | [place] [address] | | | | + + + + + + | Differentia | AUTOMATEDComment: | | EXTERNAL | | | l Type | Testing performed at | | LAB | | | | [facility], [address] | | | | | | [place] | | | | | | [address] | | | | + + + + + + | % Segmented | 75.95Comment: Testing | % | EXTERNAL | | | | performed at [facility], [address] | | LAB | | | Neutrophils | [address], | | | | | | [place] [address] | | | | + + + + + + | % | 14.93Comment: Testing | % | EXTERNAL | | | Lymphocytes | performed at [facility], [address] | | LAB | | | [address], | | | | | | [place] [address] | | | | + + + + + + | % Monocytes | 8.68Comment: Testing | % | EXTERNAL | | | | performed at [facility], [address] | | LAB | | | | [address], | | | | | | [place] [address] | | | | + + + + + + | % | 0.25Comment: Testing | % | EXTERNAL | | | Eosinophils | performed at [facility], [address] | | LAB | | | | [address], | | | | | | [place] [address] | | | | + + + + + + | % Basophils | 0.19Comment: Testing | % | EXTERNAL | | | | performed at [facility], [address] | | LAB | | | | [address], | | | | | | [place] [address] | | | | + + + + + + | Absolute | 6.90Comment: Testing | 1.90 - 7.40 | EXTERNAL | | | Segmented | performed at [facility], [address] | K[address] | LAB | | | Neutrophils | [address], | | | | | | [place] [address] | | | | + + + + + + | Absolute | 1.36Comment: Testing | 1.00 - 3.90 | EXTERNAL | | | Lymphocytes | performed at [facility], [address] | [address] | LAB | | | | [address], | | | | | | [place] [address] | | | | + + + + + + | Absolute | 0.79Comment: Testing | 0.00 - 0.80 | EXTERNAL | | | Monocytes | performed at [facility], [address] | [address] | LAB | | | | [address], | | | | | | [place] [address] | | | | + + + + + + | Absolute | 0.02Comment: Testing | 0.00 - 0.50 | EXTERNAL | | | Eosinophils | performed at [facility], [address] | [address] | LAB | | | | [address], | | | | | | [place] [address] | | | | + + + + + + | Absolute | 0.02Comment: Testing | 0.00 - 0.10 | EXTERNAL | | | Basophils | performed at [facility], [address] | K[address] | LAB | | | | [address], | | | | | | [place] [address] | | | | + + + [...] | | | | | [place] [address] | | | | + + + + + + | K | 4.1Comment: Testing | 3.5 - 4.9 | EXTERNAL | | | | performed at [facility], [address] | mmol/L | LAB | | | | [address], | | | | | | [place] [address] | | | | + + + + + + | Cl | 102Comment: Testing | 99 - 109 mmol/L | EXTERNAL | | | | performed at [facility], [address] | | LAB | | | | [address], | | | | | | [place] [address] | | | | + + + + + + | CO2 | 26Comment: Testing | 23 - 32 mmol/L | EXTERNAL | | | | performed at [facility], [address] | | LAB | | | | [address], | | | | | | [place] [address] | | | | + + + + + + | Anion Gap | 10Comment: Testing | 5 - 20 mmol/L | EXTERNAL | | | | performed at [facility], [address] | | LAB | | | | [address], | | | | | | [place] [address] | | | | + + + + + + | Glucose, | 109 (H)Comment: Testing | 65 - 99 mg/dL | EXTERNAL | | | Fasting | performed at [facility], [address] | | LAB | | | | [address], | | | | | | [place] [address] | | | | + + + + + + | BUN | 7 (L)Comment: Testing | 8 - 25 mg/dL | EXTERNAL | | | | performed at [facility], [address] | | LAB | | | | [address], | | | | | | [place] [address] | | | | + + + + + + | Creatinine | 0.62 (L)Comment: Testing | 0.70 - 1.30 | EXTERNAL | | | | performed at [facility], [address] | mg/dL | LAB | | | | [address], | | | | | | [place] [address] | | | | + + + + + + | BUN/Creatin | 11Comment: Testing | | EXTERNAL | | | ine Ratio | performed at [facility], [address] | | LAB | | | | [address], | | | | | | [place] [address] | | | | + + + + + + | Calcium | 8.8Comment: Testing | 8.5 - 10.5 | EXTERNAL | | | | performed at [facility], [address] | mg/dL | LAB | | | | [address], | | | | | | [place] [address] | | | | + + + [...] | | | | | | [place] [address] | | | | + + + [...] | LAB | | | | [address], | | | | | | [place] [address] | | | | + + + + + + | Clarity | CLEARComment: Testing | | EXTERNAL | | | | performed at [facility], [address] | | LAB | | | | [address], | | | | | | [place], [place] [address] | | | | + + + + + + | Specific | 1.029Comment: Testing | 1.002 - 1.030 | EXTERNAL | | | [place] | performed at [facility], [address] | | LAB | | | | [address], | | | | | | [place] [address] | | | | + + + + + + | Leukocyte | NEGATIVEComment: Testing | | EXTERNAL | | | Esterase, | performed at [facility], [address] | | LAB | | | [address] | [address], | | | | | | [place] [address] | | | | + + + + + + | Nitrite, | NEGATIVEComment: Testing | | EXTERNAL | | | Urine | performed at [facility], [address] | | LAB | | | | [address], | | | | | | [place] [address] | | | | + + + + + + | Urobilinoge | 1.0Comment: Testing | mg/dL | EXTERNAL | | | n, Urine | performed at [facility], [address] | | LAB | | | | [address], | | | | | | [place] [address] | | | | + + + + + + | Protein, | NEGATIVEComment: Testing | mg/dL | EXTERNAL | | | Urine | performed at [facility], [address] | | LAB | | | | [address], | | | | | | [place] [address] | | | | + + + + + + | pH, Urine | 5.0Comment: Testing | 5.0 - 8.0 | EXTERNAL | | | | performed at [facility], [address] | | LAB | | | | [address], | | | | | | [place] [address] | | | | + + + + + + | Blood, | NEGATIVEComment: Testing | | EXTERNAL | | | Urine | performed at [facility], [address] | | LAB | | | | [address], | | | | | | [place] [address] | | | | + + + + + + | Ketones | 40 (A)Comment: Testing | mg/dL | EXTERNAL | | | | performed at [facility], [address] | | LAB | | | | [address], | | | | | | [place] [address] | | | | + + + + + + | Bilirubin, | NEGATIVEComment: Testing | | EXTERNAL | | | Urine | performed at [facility], [address] | | LAB | | | | [address], | | | | | | [place] [address] | | | | + + + + + + | Glucose, | NEGATIVEComment: Testing | mg/dL | EXTERNAL | | | Urine | performed at [facility], [address] | | LAB | | | | [address], | | | | | | [place] [address] | | | | + + + [...] EXTERNAL LAB | | Testing performed at [facility];[address] [place] [address];[place] [address] MRSA PCR | | | NEGATIVE Testing performed at | | | [facility];[address] [place] [address];[place] [address] | | + + + + +---------+ [...] ISOLATED | | | Testing performed at [facility], [facility] | | | [place] [address] | | + + + + +---------+ [...] GROWTH | | | Testing performed at [facility], [address], | | | [place] [address] | | + + + + +---------+ [...] | EXTERNAL | | | | [facility] | | LAB | | | | Blvd;[place] [id number] | | | | + + + + + + | Antibody | NEGATIVE | | EXTERNAL | | | Screen | | | LAB | | + + + + + + | Antibody | Testing performed at | | EXTERNAL | | | Screen | [facility];[address] | | LAB | | | | Blvd;[place] [id number] | | | | + + + + + + | [facility] | [id number] | | EXTERNAL | | | | | | LAB | | + + + + + + | BB BAND | Testing performed at | | EXTERNAL | | | | [facility] | | LAB | | | | Blvd;[place] [id number] | | | | + + + [...]
--- OUTSIDE RECORDS SUMMARY | ~2019-10-02 | XMS | Encounter Summary ---
Demographics + + + | Address | [address] | | | [place] [address] | + + + | Home Phone [...] Team Providers + +------+ + | Care Location And Measurement Technician Name | Role | Phone | [...] | | | | [place], | [place], [place] | | | | | [place] [address] | [address] | | | | | [phone] | | | +--------+ + + + [...]
--- OUTSIDE RECORDS SUMMARY | ~2019-10-02 | XMS | Clinical Summary ---
Demographics + + + | Address | [address] | | | [place] [address] | + + + | Home Phone | | + + + | Preferred Language | Unknown | + + + | Marital Status | Single | + + + | Uatsdin Affiliation [...] Team Providers + +------+ + | Care Blood And Plasma Laboratory Assistant Name | Role | Phone | + +------+ + PCP | Unavailable | + +------+ + Source Comments BATSHEVA is fully live on both [facility] Ambulatory and [facility] InPatient.[facility] Allergies + + + + + [...] | | | + +--------+ +--------+-------+---------+--------+ | [facility] | | xxxx | Effect | [...] | 1961 | [phone] | [place] [address] | | | ryan | | | 0 (Home) | | + +--------+ +--------+ + + | Astrid Sánchez | Agency | Self | [birth year] | [address] | | [place] | | | 1961 | [phone] | [place] [address] | | | | | | 0 (Home) | | + +--------+ +--------+ + +
--- OUTSIDE RECORDS SUMMARY | ~2019-10-02 | XMS | Encounter Summary ---
Demographics + + + | Address | [address] | | | [place] [address] | + + + | Home Phone | | + + + | Preferred Language | Unknown | + + + | Marital Status | Single | + + + | Rastafarian Affiliation [...] Team Providers + +------+ + | Care Swage Toolsetter Name | Role | Phone | + +------+ + PCP | Unavailable | + +------+ + Encounter Details +--------+ + + + + | Date | Type | Department | Care Team | Description | +--------+ + + + + | 12/27/ | Abstract | Dig[facility]ive [facility] | Azeem Dietrich | | | 2011 | | [place] [phone] | MD Travis [address] | | | | | [address] | [place], [place] | | | | | Mailcode: OC8D | [address] | | | | | [facility] | [phone] | | | | | and [address], | | | | | | [address] | | | | | | [place], [place] | | | | | | [address] | | | | | | [phone] | | | +--------+ + + + [...]
--- OUTSIDE RECORDS SUMMARY | ~2019-10-02 | XMS | Encounter Summary ---
Demographics + + + | Address | [address] | | | [place] [address] | + + + | Home Phone [...] Author + + + | Author | [facility] | + + + | Organization | [facility] | + + + | Address [...] Team Providers + +------+ + | Care Marble Rubber Name | Role | Phone | + +------+ + PCP | Unavailable | + +------+ + Encounter Details +--------+ + + + + | Date | Type | Department | Care Team | Description | +--------+ + + + + | 03/25/ | Abstract | Dig[facility]ive Health | Azeem Dietrich | | | 2010 | | [place] [phone] | [address] | | | | | [address] | [place], [place] | | | | | Mailcode: OC8D | [phone] | | | | | [facility] | [phone] | | | | | and [address], | | | | | | [address] | | | | | | [place], [place] | | | | | | [address] | | | | | | [phone] | | | +--------+ + + + [...]
--- OUTSIDE RECORDS SUMMARY | ~2019-10-02 | XMS | Encounter Summary ---
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 | Role | Phone | + [...] + + + + | 08/09/ | [facility] | [facility] | Ramiro Bey, | Alcoholism (HCC) | | 2015 - | Encounter | [facility] | [address] | (Primary Dx); | | | | [address] | [place] | Hypokalemia; | | 08/14/ | | [place] [address] | [phone] | Pyelonephritis; | | 2014 | | [phone] | [phone] | Sepsis, due to | | | | | | unspecified organism | | | | | | (HCC); Falls, | | | | | | subsequent | | | | | | encounter; Sepsis, | | | | | | Gram negative (HCC); | | | | | | Sepsis due to | | | | | | Escherichia coli (E. | | | | | | coli) ([facility]) | +--------+ + + + + [...] West MD - 08/14/2015 10:35 AM PST [facility] DISCHARGE SUMMARY Pt. Name/Age/: Tony Ring Princess 54 y.o. 1960 Date of Admission: 08/09/2015 [...] 20 mg by mouth every morning. aka: [facility]: Please refer to the H&P [...] possible alcohol withdrawal, given alcohol use history. Loraine cook developed hypokalemia and hypomagnesemia, which were replaced. [...] complete 14-day total course of therapy at [facility]. Vital signs, physical examination, and laboratory values were within appropriate limits at time of discharge. Patient discharged to SNF ([facility] in [place], [place]). Labs admission/discharge days: WBC 12.2 -> [...] He denies any other problems. Plans in [facility] for discharge back to [facility] today. Patient denies headache, fever, chills, nausea, [...] 2 weeks. Specialty: Family Medicine Contact information: [id number] [place] [address] Condition: Patient being discharged with condition improved. Diet: Regular Activity: as tolerated, but up with assistance only (high fall risk) Greater than 30 minutes were spent on discharge and coordination of post-hospital care. Electronically signed by: Marco Antonio West MD, 08/14/2015 10:35 [facility] documented in thi s encounter Discharge Instructions Instructions Marco Antonio West MD - 08/14/2015Regular diet. Activity as tolerated. Up with assistance only (high fall risk). Follow-up with PCP Mason Oliveira, in 2 weeks. AttachmentsThe following attachments cannot be sent through Care Everywhere.PERIPHERALLY IN SERTED CENTRAL CATHETER (PICC), DISCHARGE INSTRUCTIONS FOR CARING FOR YOUR (FILIPINO)document ed in this encounter Medications at Time [...] + documented as of this encounter Progress Marco Antonio Brunson MD - 08/13/2015 4:59 PM PST [facility] PROGRESS NOTE Patient: Tony Sánchez : 1960: Age: 54 y.o. MedRec: [id number] Admission date: 08/09/2015 Hospital day # : [...] mL IVPB 2 g Intravenous Daily Be njamin Loraine Bey MD 100 mL/hr at 08/13/15 0840 [...] CKTOTAL No results for input(s): PHART, PO2ART, ZAU6FCQ, WYN6NWL, BEART, I9PQIIVP in the last 168 h ours. Point of care glucose: No results for input(s): POCGLU in the last 168 hours. Serial weights: Filed Weights: 08/09/15 2100 Weight: 92.7 kg (204 lb 5.9 oz) Most recent weight: Input and output for last 24hrs: Wt Readings from Last 1 Encounters: 08/09/15 92.7 kg (204 lb 5.9 oz) I/O last 24 Hours: In: 3980 [P.O.:1950; I.V.:2030] Out: 3475 [Urine:3475] Vitals Ranges: Temp: [35.9 [...] stable 8) Dispo - likely back to [facility] 08/14 if they can accept back Marco Antonio West MD 08/13/2015 16:59 [facility] asch, Nae Baumann MD - 08/12/2015 1:29 PM PST [facility] HOSPITALIST PROGRESS NOTE PATIENT NAME: Tony Sánchez AGE: 54 y.o. DATE OF SERVICE: 08/12/2015 SUBJECTIVE: No new concerns. Called [place], set up fax of results 08/11 final [...] this chart may have been created using [employer] voice recognition software. Occas ional wrong-word or "sound alike" substitutions may have occurred due to the inherent limita tions of voice recognition software. Please read chart carefully and recognize using context where these substitutions have occurred.Electronically signed by Nae Lala MD at 1:32 PM PSTRasch, Nae Baumann MD - 08/11/2015 4:25 PM PSTFormatting of this note mi ght be different from the original. [facility] HOSPITALIST PROGRESS NOTE PATIENT NAME: Tony Sánchez AGE: 54 y.o. DATE OF SERVICE: 08/11/2015 SUBJECTIVE: No chest pain, no shortness of breath. Denies back/flank pain. No new concerns. Called [place], set up fax of results. OBJECTIVE: VITAL [...] display. Plan: continue empiric antibiotics, call from [facility] with blood cx + gram neg josefina. aw aiting final for treatment plan and discharge planning DATE/TIME: 08/11/2015 16:25 SIGNED: Nae Lala MD Portions of this chart may have been created using [employer] voice recognition software. Occas ional wrong-word or "sound alike" substitutions may have occurred due to the inherent limita tions of voice recognition software. Please read chart carefully and recognize using context where these substitutions have occurred.Electronically signed by Nae Lala MD at 4:27 PM [facility], Nae Baumann MD - 08/10/2015 3:00 PM PSTFormatting of this note mi ght be different from the original. [facility] HOSPITALIST PROGRESS NOTE PATIENT NAME: Tony Sánchez [...] display. Plan: continue empiric antibiotics, call from [facility] with blood cx + gram neg josefina. DATE/TIME: 08/10/2015 15:00 SIGNED: Nae Lala MD Portions of this chart may have been created using [employer] voice recognition software. Occas ional wrong-word or "sound alike" substitutions may have occurred due to the inherent limita tions of voice recognition software. Please read chart carefully and recognize using context where these substitutions have occurred.Electronically signed by Nae Lala MD at 3:02 PM PSTdocumented in this encounter Plan of Treatment +--------+---------+ + + + | Date | Type | Specialty | Care Team | Description | +--------+---------+ + + + | 10/16/ | Office | Orthopedic Surgery | David Lux, | | | 2020 | Visit | | [place] [address] | | | | | | [facility] [address] | | | | | | [place] [address] | | | | | | [phone] | | | | | | | [...] | | Morphology | | | [facility] | [facility] | [facility] | | | | | | C[facility] - | | | | | | LABORATORY | | + + + + + + | Platelet | Adequate | Adequate | [facility] | | | Estimate | | | [facility] | | | | [facility] | [facility] | | | | | | CENTER - | | | | | | LABORATORY | | + + + + + + | Anisocytosi | Slight (A) | (none) | [facility] | | | s | | | [facility] | | | | | | MEDICAL [...] + | [facility] | [address] | [place] | [phone] | | [facility] | | [address] | | | - LABORATORY | | [...] ST. | [address] | [place], [place] | [phone] | | [facility] | | [address] | | | - LABORATORY | | [...] | | | | mmol/L | [facility] | | | | | | MEDICAL | | | | | | CENTER - | | | | | | LABORATORY | | + + + + + + | K | 4.2 | 3.5 - 5.1 | [facility] | | | | | mmol/L | [facility] | | | | | | MEDICAL | | | | | | CENTER - | | | | | | LABORATORY | | + + + + + + | Cl | 105 | 98 - 109 mmol/L | [facility] | | | | | | [facility] | | | | | | [facility]ICAL | | | | | | CENTER - | | | | | | LABORATORY | | + + + + + + | CO2 | 27 | 24 - 31 mmol/L | [facility] | | | | | | [facility] | | | | | | [facility]ICAL | | | | | | CENTER - | | | | | | LABORATORY | | + + + + + + | Anion Gap | 6 | 3 - 16 mmol/L | [facility] | | | | | [...] | | | | | mL/min/1.73m2 | [facility] | | | [place] | | | [facility] | | | [...] | | | | | | [facility] | | | | | | [facility] | | | | | | CENTER - | | | | | | LABORATORY | | + + + + + + | Phosphorus | 3.8 | 2.5 - 4.6 mg/dL | [facility] | | | | | | [facility] | | | [facility] | | [facility]ICAL | | | | | | CENTER - | | | | | | LABORATORY | | + + + + + + | BUN/Creatin | 7.1 | | [facility] | | | ine Ratio | | | [facility] | | | | | | MEDICAL [...] + + + + + | [facility] | [address] | [place] | [phone] | | [facility] | | [address] | | | - LABORATORY | | | | + + + + + CBC with Differential (08/14/2015 6:17 AM PST) + + + + + + | Component | Value | Ref Range | Performed | Pathologist | | | | | At | Signature | + + + + + + | WBC | 5.6 | 4.0 - 11.0 K/uL | [facility] | | | | [facility] | [facility] | [facility] | | | | | | [facility] - | | | | | | LABORATORY | | + + + + + + | RBC | 4.11 (L) | 4.30 - 5.70 | [facility] | | | | | M/uL | [facility] | | | | | | MEDICAL | | | | | | CENTER - | | | | | | LABORATORY | | + + + + + + | Hemoglobin | 10.2 (L) | 13.5 - 18.0 | [facility] | | | | | g/dL | [facility] | | | | | | MEDICAL | | | | | | CENTER - | | | | | | LABORATORY | | + + + + + + | Hematocrit | 33.3 (L) | 40.0 - 51.0 % | [facility] | | | | | | [facility] | | | | | | MEDICAL | | | | | | CENTER - | | | | | | LABORATORY | | + + + + + + | MCV | 81.1 (L) | 83.0 - 101.0 fL | [facility] | | | | | | [facility] | | | | | | MEDICAL | | | | | | CENTER - | | | | | | LABORATORY | | + + + + + + | MCH | 24.9 (L) | 28.0 - 35.0 pg | [facility] | | | | | | [facility] | | | | | | MEDICAL | | | | | | CENTER - | | | | | | LABORATORY | | + + + + + + | MCHC | 30.8 (L) | 32.0 - 36.0 | [facility] | | | | | g/dL | [facility] | | | | | | MEDICAL | | | | | | CENTER - | | | | | | LABORATORY | | + + + + + + | RDW-CV | 25.6 (H) | <15.0 % | [facility] | | | | | | [facility] | | | | | | [facility]ICAL | | | | | | CENTER - | | | | | | LABORATORY | | + + + + + + | Platelet | 295 | 140 - 440 K/uL | [facility] | | | Count | | | [facility] | | | | | | MEDICAL | | | | | | CENTER - | | | | | | LABORATORY | | + + + + + + | MPV | 7.9 | fL | [facility] | | | | | | [facility] | | | | | | [facility]ICAL | | | | | | CENTER - | | | | | | LABORATORY | | + + + + + + | % | 61.9 | 45.0 - 82.0 % | [facility] | | | Neutrophils | | | [facility] | | | | | | MEDICAL | | | | | | CENTER - | | | | | | LABORATORY | | + + + + + + | % | 22.5 | 20.0 - 45.0 % | [facility] | | | Lymphocytes | | | [facility] | | | | | | MEDICAL | | | | | | CENTER - | | | | | | LABORATORY | | + + + + + + | % Monocytes | 11.1 | 4.0 - 12.0 % | [facility] | | | | | | [facility] | | | | | | MEDICAL | | | | | | CENTER - | | | | | | LABORATORY | | + + + + + + | % | 3.6 | 0.0 - 5.0 % | [facility] | | | Eosinophils | | | [facility] | | | | | | MEDICAL | | | | | | CENTER - | | | | | | LABORATORY | | + + + + + + | % Basophils | 0.9 | 0.0 - 1.0 % | [facility] | | | | | | [facility] | | | | | | MEDICAL | | | | | | CENTER - | | | | | | LABORATORY | | + + + + + + | Absolute | 3.50 | 1.80 - 8.50 | [facility] | | | Neutrophils | | K/uL | [facility] | | | | | | MEDICAL | | | | | | CENTER - | | | | | | LABORATORY | | + + + + + + | Absolute | 1.30 | 0.60 - 3.20 | [facility] | | | Lymphocytes | | K/uL | [facility] | | | | | | MEDICAL | | | | | | CENTER - | | | | | | LABORATORY | | + + + + + + | Absolute | 0.60 | 0.00 - 1.00 | [facility] | | | Monocytes | | K/uL | [facility] | | | | | | MEDICAL | | | | | | CENTER - | | | | | | LABORATORY | | + + + + + + | Absolute | 0.20 | 0.00 - 0.40 | [facility] | | | Eosinophils | | K/uL | [facility] | | | | | | MEDICAL | | | | | | CENTER - | | | | | | LABORATORY | | + + + + + + | Absolute | 0.00 | 0.00 - 0.10 | [facility] | | | Basophils | | K/uL | [facility] | | | | | | MEDICAL [...] + | [facility] | [address] | [place] | [phone] | | [facility] | | [address] | | | - LABORATORY | | [...] [address] | [place] | [phone] | | [facility] | | [address] | | | - LABORATORY | | [...] [address] | [place] | [phone] | | [facility] | | [address] | | | - LABORATORY | | [...] [address] | [place] | [phone] | | [facility] | | [address] | | | - LABORATORY | | [...] | | | | | | [facility] | | | | | | MEDICAL [...] [facility]. | [address] | [place] | [phone] | | [facility] | | [address] | | | - LABORATORY | | [...] | | Total | | | [facility] | | | | | | MEDICAL | | | | | | CENTER - | | | | | | LABORATORY | | + +---------+ + + + | Total | 6.4 | 6.0 - 7.8 g/dL | [facility] | | | Protein | | | [facility] | | | | | | MEDICAL | | | | | | CENTER - | | | | | | LABORATORY | | + +---------+ + + + | Albumin | 3.0 (L) | 3.2 - 5.0 g/dL | [facility] | | | | | | [facility] | | | | | | MEDICAL | | | | | | CENTER - | | | | | | LABORATORY | | + +---------+ + + + | AST | 29 | 10 - 42 U/L | [facility] | | | | | | [facility] | | | | | | MEDICAL | | | | | | CENTER - | | | | | | LABORATORY | | + +---------+ + + + | ALT | 20 | 6 - 45 U/L | [facility] | | | | | | [facility] | | | | | | MEDICAL | | | | | | CENTER - | | | | | | LABORATORY | | + +---------+ + + + | Alkaline | 71 | 40 - 110 U/L | [facility] | | | Phosphatase | | | [facility] | | | | | | MEDICAL | | | | | | CENTER - | | | | | | LABORATORY | | + +---------+ + + + | Globulin | 3.4 | g/dL | [facility] | | | | | | [facility] | | | | | | MEDICAL | | | | | | CENTER - | | | | | | LABORATORY | | + +---------+ + + + | Albumin/Naheed | 0.9 | | [facility] | | | bulin Ratio | | | [facility] | | | | | | MEDICAL [...] + | [facility] | [address] | [place] | [phone] | | [facility] | | [address] | | | - LABORATORY | | | | + + + + + CBC with Differential (08/13/2015 6:20 AM PST) + + + + + + | Component | Value | Ref Range | Performed | Pathologist | | | | | At | Signature | + + + + + + | WBC | 4.9 | 4.0 - 11.0 K/uL | [facility] | | | | | | [facility] | | | | | | MEDICAL | | | | | | CENTER - | | | | | | LABORATORY | | + + + + + + | RBC | 3.77 (L) | 4.30 - 5.70 | [facility] | | | | | M/uL | [facility] | | | | | | MEDICAL | | | | | | CENTER - | | | | | | LABORATORY | | + + + + + + | Hemoglobin | 9.3 (L) | 13.5 - 18.0 | [facility] | | | | | g/dL | [facility] | | | | | | MEDICAL [...] | | | | | | [facility] | | | | | | MEDICAL | | | | | | CENTER - | | | | | | LABORATORY | | + + + + + + | MCH | 24.8 (L) | 28.0 - 35.0 pg | [facility] | | | | | | [facility] | | | | | | MEDICAL | | | | | | CENTER - | | | | | | LABORATORY | | + + + + + + | MCHC | 30.7 (L) | 32.0 - 36.0 | [facility] | | | | | g/dL | [facility] | | | | | | MEDICAL | | | | | | CENTER - | | | | | | LABORATORY | | + + + + + + | RDW-CV | 25.5 (H) | <15.0 % | [facility] | | | | | | [facility] | | | | | | MEDICAL | | | | | | CENTER - | | | | | | LABORATORY | | + + + + + + | Platelet | 214 | 140 - 440 K/uL | [facility] | | | Count | | | [facility] | | | | | | MEDICAL | | | | | | CENTER - | | | | | | LABORATORY | | + + + + + + | MPV | 7.9 | fL | [facility] | | | | | | [facility] | | | | | | MEDICAL | | | | | | CENTER - | | | | | | LABORATORY | | + + + + + + | % | 64.9 | 45.0 - 82.0 % | [facility] | | | Neutrophils | | | [facility] | | | | | | MEDICAL | | | | | | CENTER - | | | | | | LABORATORY | | + + + + + + | % | 16.6 (L) | 20.0 - 45.0 % | [facility] | | | Lymphocytes | | | [facility] | | | | | | MEDICAL | | | | | | CENTER - | | | | | | LABORATORY | | + + + + + + | % Monocytes | 13.8 (H) | 4.0 - 12.0 % | [facility] | | | | | | [facility] | | | | | | MEDICAL | | | | | | CENTER - | | | | | | LABORATORY | | + + + + + + | % | 3.9 | 0.0 - 5.0 % | [facility] | | | Eosinophils | | | [facility] | | | | | | MEDICAL | | | | | | CENTER - | | | | | | LABORATORY | | + + + + + + | % Basophils | 0.8 | 0.0 - 1.0 % | [facility] | | | | | | [facility] | | | | | | MEDICAL | | | | | | CENTER - | | | | | | LABORATORY | | + + + + + + | Absolute | 3.20 | 1.80 - 8.50 | [facility] | | | Neutrophils | | K/uL | [facility] | | | | | | MEDICAL | | | | | | CENTER - | | | | | | LABORATORY | | + + + + + + | Absolute | 0.80 | 0.60 - 3.20 | [facility] | | | Lymphocytes | | K/uL | [facility] | | | | | | MEDICAL | | | | | | CENTER - | | | | | | LABORATORY | | + + + + + + | Absolute | 0.70 | 0.00 - 1.00 | [facility] | | | Monocytes | | K/uL | [facility] | | | | | | MEDICAL | | | | | | CENTER - | | | | | | LABORATORY | | + + + + + + | Absolute | 0.20 | 0.00 - 0.40 | [facility] | | | Eosinophils | | K/uL | [facility] | | | | | | MEDICAL | | | | | | CENTER - | | | | | | LABORATORY | | + + + + + + | Absolute | 0.00 | 0.00 - 0.10 | [facility] | | | Basophils | | K/uL | [facility] | | | | | | MEDICAL [...] + | [facility] | [address] | [place] | [phone] | | [facility] | | [address] | | | - LABORATORY | | [...] | | | | mmol/L | [facility] | | | | | | MEDICAL | | | | | | CENTER - | | | | | | LABORATORY | | + + + + + + | K | 3.7 | 3.5 - 5.1 | [facility] | | | | | mmol/L | [facility] | | | | | | MEDICAL | | | | | | CENTER - | | | | | | LABORATORY | | + + + + + + | Cl | 104 | 98 - 109 mmol/L | [facility] | | | | | | [facility] | | | | | | MEDICAL | | | | | | CENTER - | | | | | | LABORATORY | | + + + + + + | CO2 | 26 | 24 - 31 mmol/L | [facility] | | | | | | [facility] | | | | | | MEDICAL | | | | | | CENTER - | | | | | | LABORATORY | | + + + + + + | Anion Gap | 8 | 3 - 16 mmol/L | [facility] | | | | | | [facility] | | | | | | MEDICAL [...] | | | | | mg/dL | [facility] | | | | | | MEDICAL | | | | | | CENTER - | | | | | | LABORATORY | | + + + + + + | eGFR if not | >60Comment: GLOMERULAR | >=60 | [facility] | | | | FILTRATION | mL/min/1.73m2 | [facility] | | | [place] | RATE,ESTIMATED | | MEDICAL | | | | mL/min/1.81u0Dfkn than | | CENTER - | | [...] | 8.4 | 8.3 - 10.5 | [facility] | | | | | mg/dL | [facility] | | | | | | [facility] | | | | | | CENTER - | | | | | | LABORATORY | | + + + + + + | BUN/Creatin | 8.0 | | [facility] | | | ine [...] ST. | [address] | [place] | [phone] | | [facility] | | [address] | | | - LABORATORY | | | | + + + + + CBC with Differential (08/12/2015 6:05 AM PST) + + + + + + | Component | Value | Ref Range | Performed | Pathologist | | | | | At | Signature | + + + + + + | WBC | 5.9 | 4.0 - 11.0 K/uL | [facility] | | | | | | [facility] | | | | | | MEDICAL | | | | | | CENTER - | | | | | | LABORATORY | | + + + + + + | RBC | 3.61 (L) | 4.30 - 5.70 | [facility] | | | | | M/uL | [facility] | | | | | | MEDICAL | | | | | | CENTER - | | | | | | LABORATORY | | + + + + + + | Hemoglobin | 9.1 (L) | 13.5 - 18.0 | [facility] | | | | | g/dL | [facility] | | | | | | MEDICAL | | | | | | CENTER - | | | | | | LABORATORY | | + + + + + + | Hematocrit | 29.2 (L) | 40.0 - 51.0 % | [facility] | | | | | | [facility] | | | | | | MEDICAL | | | | | | CENTER - | | | | | | LABORATORY | | + + + + + + | MCV | 81.0 (L) | 83.0 - 101.0 fL | [facility] | | | | | | [facility] | | | | | | MEDICAL | | | | | | CENTER - | | | | | | LABORATORY | | + + + + + + | MCH | 25.3 (L) | 28.0 - 35.0 pg | [facility] | | | | | | [facility] | | | | | | MEDICAL | | | | | | CENTER - | | | | | | LABORATORY | | + + + + + + | MCHC | 31.2 (L) | 32.0 - 36.0 | [facility] | | | | | g/dL | [facility] | | | | | | MEDICAL | | | | | | CENTER - | | | | | | LABORATORY | | + + + + + + | RDW-CV | 26.2 (H) | <15.0 % | [facility] | | | | | | [facility] | | | | | | MEDICAL | | | | | | CENTER - | | | | | | LABORATORY | | + + + + + + | Platelet | 152 | 140 - 440 K/uL | [facility] | | | Count | | | [facility] | | [facility] | | | MEDICAL | | | | | | CENTER - | | | | | | LABORATORY | | + + + + + + | MPV | 8.5 | fL | [facility] | | | | | | [facility] | | [facility] | | | MEDICAL | | | | | | CENTER - | | | | | | LABORATORY | | + + + + + + | % | 76.2 | 45.0 - 82.0 % | [facility] | | | Neutrophils | | | [facility] | | | | | | MEDICAL | | | | | | CENTER - | | | | | | LABORATORY | | + + + + + + | % | 11.2 (L) | 20.0 - 45.0 % | [facility] | | | Lymphocytes | | | [facility] | | | | | | MEDICAL | | | | | | CENTER - | | | | | | LABORATORY | | + + + + + + | % Monocytes | 10.3 | 4.0 - 12.0 % | [facility] | | | | | | [facility] | | | | | | MEDICAL | | | | | | CENTER - | | | | | | LABORATORY | | + + + + + + | % | 1.8 | 0.0 - 5.0 % | [facility] | | | Eosinophils | | | [facility] | | | | | | MEDICAL | | | | | | CENTER - | | | | | | LABORATORY | | + + + + + + | % Basophils | 0.5 | 0.0 - 1.0 % | [facility] | | | | | | [facility] | | | | | | MEDICAL | | | | | | CENTER - | | | | | | LABORATORY | | + + + + + + | Absolute | 4.50 | 1.80 - 8.50 | [facility] | | | Neutrophils | | K/uL | [facility] | | | | | | MEDICAL | | | | | | CENTER - | | | | | | LABORATORY | | + + + + + + | Absolute | 0.70 | 0.60 - 3.20 | [facility] | | | Lymphocytes | | K/uL | [facility] | | | | | | MEDICAL | | | | | | CENTER - | | | | | | LABORATORY | | + + + + + + | Absolute | 0.60 | 0.00 - 1.00 | [facility] | | | Monocytes | | K/uL | [facility] | | | | | | MEDICAL | | | | | | CENTER - | | | | | | LABORATORY | | + + + + + + | Absolute | 0.10 | 0.00 - 0.40 | [facility] | | | Eosinophils | | K/uL | [facility] | | | | | | MEDICAL | | | | | | CENTER - | | | | | | LABORATORY | | + + + + + + | Absolute | 0.00 | 0.00 - 0.10 | [facility] | | | Basophils | | K/uL | [facility] | | | | | | MEDICAL [...] + | [facility] | [address] | [place] | [phone] | | [facility] | | [address] | | | - LABORATORY | | [...] | | | | mmol/L | [facility] | | | | | | MEDICAL | | | | | | CENTER - | | | | | | LABORATORY | | + + + + + + | K | 3.6 | 3.5 - 5.1 | [facility] | | | | | mmol/L | [facility] | | | | | | MEDICAL | | | | | | CENTER - | | | | | | LABORATORY | | + + + + + + | Cl | 107 | 98 - 109 mmol/L | [facility] | | | | | | [facility] | | | | | | [facility] | | | | | | CENTER - | | | | | | LABORATORY | | + + + + + + | CO2 | 25 | 24 - 31 mmol/L | [facility] | | | | | | [facility] | | | | | | [facility] | | | | | | CENTER - | | | | | | LABORATORY | | + + + + + + | Anion Gap | 7 | 3 - 16 mmol/L | [facility] | | | | | | [facility] | | | | | | [facility] | | | | | | CENTER - | | | | | | LABORATORY | | + + + + + + | Glucose | 99 | 70 - 109 mg/dL | [facility] | | | | | | [facility] | | | | | | MEDICAL [...] 0.51 (L) | 0.60 - 1.30 | [facility] | | | | | mg/dL | [facility] | | | | | | MEDICAL | | | | | | CENTER - | | | | | | LABORATORY | | + + + + + + | eGFR if not | >60Comment: GLOMERULAR | >=60 | [facility] | | | | FILTRATION | mL/min/1.73m2 | [facility] | | | [place] | RATE,ESTIMATED | | MEDICAL | | | | mL/min/1.22a7Qnpj than | | CENTER - | | [...] | | | | mg/dL | [facility] | | | | | | MEDICAL | | | | | | CENTER - | | | | | | LABORATORY | | + + + + + + | BUN/Creatin | 7.8 | | [facility] | | | ine Ratio | | | [facility] | | | | | | MEDICAL [...] + | [facility] | [address] | [place] | [phone] | | [facility] | | [address] | | | - LABORATORY | | | | + + + + + CBC with Differential (08/11/2015 6:04 AM PST) + + + + + + | Component | Value | Ref Range | Performed | Pathologist | | | | | At | Signature | + + + + + + | WBC | 7.1 | 4.0 - 11.0 K/uL | [facility] | | | | | | [facility] | | | | | | MEDICAL | | | | | | CENTER - | | | | | | LABORATORY | | + + + + + + | RBC | 3.53 (L) | 4.30 - 5.70 | [facility] | | | | | M/uL | [facility] | | | | | | MEDICAL | | | | | | CENTER - | | | | | | LABORATORY | | + + + + + + | Hemoglobin | 8.7 (L) | 13.5 - 18.0 | [facility] | | | | | g/dL | [facility] | | | | | | MEDICAL | | | | | | CENTER - | | | | | | LABORATORY | | + + + + + + | Hematocrit | 28.3 (L) | 40.0 - 51.0 % | [facility] | | | | | | [facility] | | | | | | MEDICAL | | | | | | CENTER - | | | | | | LABORATORY | | + + + + + + | MCV | 80.2 (L) | 83.0 - 101.0 fL | [facility] | | | | | | [facility] | | | | | | [facility]ICAL | | | | | | CENTER - | | | | | | LABORATORY | | + + + + + + | MCH | 24.7 (L) | 28.0 - 35.0 pg | [facility] | | | | | | [facility] | | | | | | MEDICAL | | | | | | CENTER - | | | | | | LABORATORY | | + + + + + + | MCHC | 30.8 (L) | 32.0 - 36.0 | [facility] | | | | | g/dL | [facility] | | | | | | MEDICAL | | | | | | CENTER - | | | | | | LABORATORY | | + + + + + + | RDW-CV | 25.3 (H) | <15.0 % | [facility] | | | | | | [facility] | | | | | | MEDICAL | | | | | | CENTER - | | | | | | LABORATORY | | + + + + + + | Platelet | 133 (L) | 140 - 440 K/uL | [facility] | | | Count | | | [facility] | | [facility] | [facility] | | | | [facility] - | | | | | | LABORATORY | | + + + + + + | MPV | 8.5 | fL | [facility] | | | | | | [facility] | | | | [facility] | [facility] | | | | | | [facility] - | | | | | | LABORATORY | | + + + + + + | % | 77.6 | 45.0 - 82.0 % | [facility] | | | Neutrophils | | | [facility] | | | | | | [facility] | | | | | | CENTER - | | | | | | LABORATORY | | + + + + + + | % | 9.0 (L) | 20.0 - 45.0 % | [facility] | | | Lymphocytes | | | [facility] | | | | | | [facility] | | | | | | CENTER - | | | | | | LABORATORY | | + + + + + + | % Monocytes | 11.4 | 4.0 - 12.0 % | [facility] | | | | | | [facility] | | | | | | [facility] | | | | | | CENTER - | | | | | | LABORATORY | | + + + + + + | % | 1.5 | 0.0 - 5.0 % | [facility] | | | Eosinophils | | | [facility] | | | | | | [facility] | | | | | | CENTER - | | | | | | LABORATORY | | + + + + + + | % Basophils | 0.5 | 0.0 - 1.0 % | [facility] | | | | | | [facility] | | | | | | [facility] | | | | | | CENTER - | | | | | | LABORATORY | | + + + + + + | Absolute | 5.50 | 1.80 - 8.50 | [facility] | | | Neutrophils | | K/uL | [facility] | | | | | | [facility] | | | | | | CENTER - | | | | | | LABORATORY | | + + + + + + | Absolute | 0.60 | 0.60 - 3.20 | [facility] | | | Lymphocytes | | K/uL | [facility] | | | | | | [facility] | | | | | | CENTER - | | | | | | LABORATORY | | + + + + + + | Absolute | 0.80 | 0.00 - 1.00 | [facility] | | | Monocytes | | K/uL | [facility] | | | [facility] | [facility] | | | | | | CENTER - | | | | | | LABORATORY | | + + + + + + | Absolute | 0.10 | 0.00 - 0.40 | [facility] | | | Eosinophils | | K/uL | [facility] | [...] ST. | [address] | [place] | [phone] | | [facility] | | [address] | | | - LABORATORY | | [...] | | | | mmol/L | [facility] | | | | | | [facility]ICAL | | | | | | CENTER - | | | | | | LABORATORY | | + + + + + + | Cl | 106 | 98 - 109 mmol/L | [facility] | | | | | | [facility] | | | | | | [facility] | | | | | | CENTER - | | | | | | LABORATORY | | + + + + + + | CO2 | 23 (L) | 24 - 31 mmol/L | [facility] | | | | | | [facility] | | | | | | [facility] | | | | | | CENTER - | | | | | | LABORATORY | | + + + + + + | Anion Gap | 7 | 3 - 16 mmol/L | [facility] | | | | | | [facility] | | | | | | [facility] | | | | | | CENTER - | | | | | | LABORATORY | | + + + + + + | Glucose | 106 | 70 - 109 mg/dL | [facility] | | | | | | [facility] | | | | | | [facility] | | | | | | CENTER - | | | | | | LABORATORY | | + + + + + + | BUN | 5 (L) | 7 - 18 mg/dL | [facility] | | | | | | [facility] | | | | | | [facility] | | | | | | CENTER - | | | | | | LABORATORY | | + + + + + + | Creatinine | 0.50 (L) | 0.60 - 1.30 | [facility] | | | | | mg/dL | [facility] | | | | | | [facility]ICAL | | | | | | CENTER - | | | | | | LABORATORY | | + + + + + + | eGFR if not | >60Comment: GLOMERULAR | >=60 | [facility] | | | | FILTRATION | mL/min/1.73m2 | [facility] | | | [place] | RATE,ESTIMATED | | MEDICAL | | | | mL/min/1.18a1Yqjx than | | CENTER - | | [...] | | ine Ratio | | | [facility] | | | | | | MEDICAL [...] [address] | [place] | [phone] | | [facility] | | [address] | | | - LABORATORY | | | | + + + + + CBC with Differential (08/10/2015 6:29 AM PST) + + + + + + | Component | Value | Ref Range | Performed | Pathologist | | | | | At | Signature | + + + + + + | WBC | 8.6 | 4.0 - 11.0 K/uL | [facility] | [facility] | [facility] | [facility] | | | | | | CENTER - | | | | | | LABORATORY | | + + + + + + | RBC | 3.64 (L) | 4.30 - 5.70 | [facility] | | | | | M/uL | [facility] | | | | | | MEDICAL | | | | | | CENTER - | | | | | | LABORATORY | | + + + + + + | Hemoglobin | 9.1 (L) | 13.5 - 18.0 | [facility] | | | | | g/dL | [facility] | | | | | | [facility] | | | | | | CENTER - | | | | | | LABORATORY | | + + + + + + | Hematocrit | 29.7 (L) | 40.0 - 51.0 % | [facility] | | | | | | [facility] | | | | | | MEDICAL | | | | | | CENTER - | | | | | | LABORATORY | | + + + + + + | MCV | 81.6 (L) | 83.0 - 101.0 fL | [facility] | | | | | | [facility] | | | | | | MEDICAL | | | | | | CENTER - | | | | | | LABORATORY | | + + + + + + | MCH | 25.0 (L) | 28.0 - 35.0 pg | [facility] | | | | | | [facility] | | | | | | MEDICAL | | | | | | CENTER - | | | | | | LABORATORY | | + + + + + + | MCHC | 30.6 (L) | 32.0 - 36.0 | [facility] | | | | | g/dL | [facility] | [facility] | | | | | | CENTER - | | | | | | LABORATORY | | + + + + + + | RDW-CV | 26.5 (H) | <15.0 % | [facility] | | | | | | [facility] | | | | | | [facility]ICAL | | | | | | CENTER - | | | | | | LABORATORY | | + + + + + + | Platelet | 116 (L) | 140 - 440 K/uL | [facility] | | | Count | | | [facility] | | | | | | [facility]ICAL | | | | | | CENTER - | | | | | | LABORATORY | | + + + + + + | MPV | 8.4 | fL | [facility] | | | | | | [facility] | | | | | | [facility]ICAL | | | | | | CENTER - | | | | | | LABORATORY | | + + + + + + | % | 76.3 | 45.0 - 82.0 % | [facility] | | | Neutrophils | | | [facility] | | | | | | MEDICAL | | | | | | CENTER - | | | | | | LABORATORY | | + + + + + + | % | 9.5 (L) | 20.0 - 45.0 % | [facility] | | | Lymphocytes | | | [facility] | | | | | | MEDICAL | | | | | | CENTER - | | | | | | LABORATORY | | + + + + + + | % Monocytes | 13.4 (H) | 4.0 - 12.0 % | [facility] | | | | | | [facility] | | | | | | MEDICAL | | | | | | CENTER - | | | | | | LABORATORY | | + + + + + + | % | 0.6 | 0.0 - 5.0 % | [facility] | | | Eosinophils | | | [facility] | | | | | | MEDICAL | | | | | | CENTER - | | | | | | LABORATORY | | + + + + + + | % Basophils | 0.2 | 0.0 - 1.0 % | [facility] | | | | | | [facility] | | | | | | MEDICAL [...] | Monocytes | | K/uL | [facility] | | | [facility] | | MEDICAL | | | | | | CENTER - | | | | | | LABORATORY | | + + + + + + | Absolute | 0.00 | 0.00 - 0.40 | [facility] | | | Eosinophils | | K/uL | [facility] | | | | | | MEDICAL | | | | | | CENTER - | | | | | | LABORATORY | | + + + + + + | Absolute | 0.00 | 0.00 - 0.10 | [facility] | | | Basophils | | K/uL | [facility] | [...] + + | [facility] | [address] | [place] | [phone] | | [facility] | | [address] | | | - LABORATORY | | [...] | | | | mmol/L | [facility] | | | | | | MEDICAL | | | | | | CENTER - | | | | | | LABORATORY | | + + + + + + | K | 3.4 (L) | 3.5 - 5.1 | [facility] | | | | | mmol/L | [facility] | | | | | | MEDICAL [...] 7 | 7 - 18 mg/dL | [facility] | | | | | | [facility] | | | | | | MEDICAL | | | | | | CENTER - | | | | | | LABORATORY | | + + + + + + | Creatinine | 0.56 (L) | 0.60 - 1.30 | [facility] | | | | | [...] mL/min/1.73m2 | [facility] | | | [place] | RATE,ESTIMATED | | MEDICAL | | | | mL/min/1.63q3Jgtf than | | CENTER - | | [...] + | [facility] | [address] | [place] | [phone] | | [facility] | | [address] | | | - LABORATORY | | | | + + + + + Magnesium (08/10/2015 6:29 AM PST) + +-------+ + + + | Component | Value | Ref Range | Performed | Pathologist | | | | | At | Signature | + +-------+ + + + | Magnesium | 2.4 | 1.8 - 2.5 mg/dL | [facility] [...] [facility] | [address] | [place], [place] | [phone] | | [facility] | | [address] | | | - LABORATORY | | [...] + + + + + | [facility] | [address] | [place] | [phone] | | [facility] | | [address] | | | - LABORATORY | | [...] | Urine | | Yellow | [facility] | | | | | | MEDICAL | | | | | | CENTER - | | | | | | LABORATORY | | + + + + + + | Clarity | Clear | Clear | [facility] | | | | | | [facility] | | | | | | MEDICAL | | | | | | CENTER - | | | | | | LABORATORY | | + + + + + + | pH, Urine | 6.0 | 5.0 - 8.0 | [facility] | | | | | | [facility] | | | | | | MEDICAL | | | | | | CENTER - | | | | | | LABORATORY | | + + + + + + | Specific | 1.010 | 1.001 - 1.030 | [facility] | | | [place] | | | [facility] | | | | | | MEDICAL | | | | | | CENTER - | | | | | | LABORATORY | | + + + + + + | Protein, | Negative | Negative | [facility] | | | Urine | | | [facility] | | | | | | MEDICAL | | | | | | CENTER - | | | | | | LABORATORY | | + + + + + + | Blood, | Moderate (A) | Negative | [facility] | | | Urine | | | [facility] | | | | | | MEDICAL | | | | | | CENTER - | | | | | | LABORATORY | | + + + + + + | Glucose, | Negative | Negative | [facility] | | | Urine | | | [facility] | | | | | | MEDICAL | | | | | | CENTER - | | | | | | LABORATORY | | + + + + + + | Ketones, | Negative | Negative | [facility] | | | Urine | | | [facility] | | | | | | MEDICAL | | | | | | CENTER - | | | | | | LABORATORY | | + + + + + + | Bilirubin, | Negative | Negative | [facility] | | | Urine | | | [facility] | | | | | | MEDICAL | | | | | | CENTER - | | | | | | LABORATORY | | + + + + + + | Nitrite, | Negative | Negative | [facility] | | | Urine | | | [facility] | | | | | | MEDICAL | | | | | | CENTER - | | | | | | LABORATORY | | + + + + + + | Leukocyte | Trace (A) | Negative | [facility] | | | Esterase, | | | [facility] | | | Urine | | | MEDICAL | | | | | | CENTER - | | | | | | LABORATORY | | + + + + + + | Urobilinoge | 4.0 E.U./dL (A) | 0.2 E.U./dL, | [facility] | | | n, Urine | | 1.0 E.U./dL | [facility] | | | | | | MEDICAL | | | | | | CENTER - | | | | | | LABORATORY | | + + + + + + | WBC UA | 10-15 (A) | 0 - 2 /HPF | [facility] | | | | | | [facility] | | | | | | MEDICAL | | | | | | CENTER - | | | | | | LABORATORY | | + + + + + + | RBC UA | 0-2 | 0 - 2 /HPF | [facility] | | | | | | [facility] | | | | | | MEDICAL | | | | | | CENTER - | | | | | | LABORATORY | | + + + + + + | SQUAMOUS | 2-5 (A) | 0 - 2 /LPF | [facility] | | | EPITHELIAL | | | [facility] | | | UA | | | MEDICAL | | | | | | CENTER - | | | | | | LABORATORY | | + + + + + + | BACTERIA UA | Negative | Negative /HPF | [facility] | | | | | | [facility] | | | | | | MEDICAL [...] + | [facility] | [address] | [place] | [phone] | | [facility] | | [address] | | | - LABORATORY | | [...] | | Morphology | | | [facility] | | | | | | MEDICAL | | | | | | CENTER - | | | | | | LABORATORY | | + + + + + + | Platelet | Decreased (A) | Adequate | [facility] | | | Estimate | | | [facility] | | | | | | MEDICAL | | | | | | CENTER - | | | | | | LABORATORY | | + + + + + + | Hypochromas | Slight (A) | (none) | [facility] | | | ia | | | [facility] | | | | | | MEDICAL | | | | | | CENTER - | | | | | | LABORATORY | | + + + + + + | Anisocytosi | Moderate (A) | (none) | [facility] | | | s | | | [facility] | | | | | | MEDICAL [...] + | [facility] | [address] | [place] | [phone] | | [facility] | | [address] | | | - LABORATORY | | | | + + + + + Magnesium (08/09/2015 10:55 PM PST) + +-------+ + + + | Component | Value | Ref Range | Performed | Pathologist | | | | | At | Signature | + +-------+ + + + | Magnesium | 2.3 | 1.8 - 2.5 mg/dL | [facility] | | | | | | [facility] | | | | | | [...] [address] | [place] | [phone] | | [facility] | | [address] | | | - LABORATORY | | [...] | | | | mmol/L | [facility] | | | | | | MEDICAL [...] + | [facility] | [address] | [place] | [phone] | | [facility] | | [address] | | | - LABORATORY | | [...] | | | | mmol/L | [facility] | | | | | | MEDICAL | | | | | | CENTER - | | | | | | LABORATORY | | + + + + + + | K | 3.3 (L) | 3.5 - 5.1 | [facility] | | | | | mmol/L | [facility] | | | | | | MEDICAL | | | | | | CENTER - | | | | | | LABORATORY | | + + + + + + | Cl | 111 (H) | 98 - 109 mmol/L | [facility] | | | | | | [facility] | | | | | | MEDICAL | | | | | | CENTER - | | | | | | LABORATORY | | + + + + + + | CO2 | 20 (L) | 24 - 31 mmol/L | [facility] | | | | | | [facility] | | | | | | MEDICAL | | | | | | CENTER - | | | | | | LABORATORY | | + + + + + + | Anion Gap | 6 | 3 - 16 mmol/L | [facility] | | | | | | [facility] | | | | | | MEDICAL | | | | | | CENTER - | | | | | | LABORATORY | | + + + + + + | Glucose | 136 (H) | 70 - 109 mg/dL | [facility] | | | | | | [facility] | | | | | | MEDICAL | | | | | | CENTER - | | | | | | LABORATORY | | + + + + + + | BUN | 7 | 7 - 18 mg/dL | [facility] | | | | | | [facility] | | | | | | MEDICAL | | | | | | CENTER - | | | | | | LABORATORY | | + + + + + + | Creatinine | 0.59 (L) | 0.60 - 1.30 | [facility] | | | | | mg/dL | [facility] | | | | | | MEDICAL | | | | | | CENTER - | | | | | | LABORATORY | | + + + + + + | eGFR if not | >60Comment: GLOMERULAR | >=60 | [facility] | | | | FILTRATION | mL/min/1.73m2 | [facility] | | | [place] | RATE,ESTIMATED | | MEDICAL | | | | mL/min/1.43t0Ncjr than | | CENTER - | | [...] | | | | | mg/dL | [facility] | | | | | | MEDICAL | | | | | | CENTER - | | | | | | LABORATORY | | + + + + + + | BUN/Creatin | 11.9 | | [facility] | | | ine Ratio | | | [facility] | | | | | | MEDICAL [...] + | [facility] | [address] | [place] | [phone] | | [facility] | | [address] | | | - LABORATORY | | | | + + + + + CBC with Differential (08/09/2015 10:55 PM PST) + + + + + + | Component | Value | Ref Range | Performed | Pathologist | | | | | At | Signature | + + + + + + | WBC | 12.2 (H) | 4.0 - 11.0 K/uL | [facility] | | | | | | [facility] | | | [facility] | | MEDICAL | | | | | | CENTER - | | | | | | LABORATORY | | + + + + + + | RBC | 3.70 (L) | 4.30 - 5.70 | [facility] | | | | | M/uL | [facility] | | | | | | MEDICAL | | | | | | CENTER - | | | | | | LABORATORY | | + + + + + + | Hemoglobin | 9.0 (L) | 13.5 - 18.0 | [facility] | | | | | g/dL | [facility] | | | | | | MEDICAL | | | | | | CENTER - | | | | | | LABORATORY | | + + + + + + | Hematocrit | 29.9 (L) | 40.0 - 51.0 % | [facility] | | | | | | [facility] | | | | | | MEDICAL | | | | | | CENTER - | | | | | | LABORATORY | | + + + + + + | MCV | 80.8 (L) | 83.0 - 101.0 fL | [facility] | | | | | | [facility] | | | | | | MEDICAL | | | | | | CENTER - | | | | | | LABORATORY | | + + + + + + | MCH | 24.4 (L) | 28.0 - 35.0 pg | [facility] | | | | | | [facility] | | | | | | MEDICAL | | | | | | CENTER - | | | | | | LABORATORY | | + + + + + + | MCHC | 30.2 (L) | 32.0 - 36.0 | [facility] | | | | | g/dL | [facility] | | | | | | MEDICAL | | | | | | CENTER - | | | | | | LABORATORY | | + + + + + + | RDW-CV | 26.4 (H) | <15.0 % | [facility] | | | | | | [facility] | | | | | | MEDICAL | | | | | | CENTER - | | | | | | LABORATORY | | + + + + + + | Platelet | 109 (L) | 140 - 440 K/uL | [facility] | | | Count | | | [facility] | | | | | | MEDICAL | | | | | | CENTER - | | | | | | LABORATORY | | + + + + + + | MPV | 8.6 | fL | [facility] | | | | | | [facility] | | | | | | [facility]ICAL | | | | | | CENTER - | | | | | | LABORATORY | | + + + + + + | % | 88.4 (H) | 45.0 - 82.0 % | [facility] | | | Neutrophils | | | [facility] | | | | | | MEDICAL | | | | | | CENTER - | | | | | | LABORATORY | | + + + + + + | % | 3.4 (L) | 20.0 - 45.0 % | [facility] | | | Lymphocytes | | | [facility] | | | | | | MEDICAL | | | | | | CENTER - | | | | | | LABORATORY | | + + + + + + | % Monocytes | 8.1 | 4.0 - 12.0 % | [facility] | | | | | | [facility] | | | | | | MEDICAL | | | | | | CENTER - | | | | | | LABORATORY | | + + + + + + | % | 0.0 | 0.0 - 5.0 % | [facility] | | | Eosinophils | | | [facility] | | | | | | MEDICAL | | | | | | CENTER - | | | | | | LABORATORY | | + + + + + + | % Basophils | 0.1 | 0.0 - 1.0 % | [facility] | | | | | | [facility] | | | | | | MEDICAL | | | | | | CENTER - | | | | | | LABORATORY | | + + + + + + | Absolute | 10.80 (H) | 1.80 - 8.50 | [facility] | | | Neutrophils | | K/uL | [facility] | | | | | | MEDICAL | | | | | | CENTER - | | | | | | LABORATORY | | + + + + + + | Absolute | 0.40 (L) | 0.60 - 3.20 | [facility] | | | Lymphocytes | | K/uL | [facility] | | | | | | MEDICAL | | | | | | CENTER - | | | | | | LABORATORY | | + + + + + + | Absolute | 1.00 | 0.00 - 1.00 | [facility] | | | Monocytes | | K/uL | [facility] | | | | | | MEDICAL | | | | | | CENTER - | | | | | | LABORATORY | | + + + + + + | Absolute | 0.00 | 0.00 - 0.40 | [facility] | | | Eosinophils | | K/uL | [facility] | | | | | | MEDICAL | | | | | | CENTER - | | | | | | LABORATORY | | + + + + + + | Absolute | 0.00 | 0.00 - 0.10 | [facility] | | | Basophils | | K/uL | [facility] | | | | | | MEDICAL [...] + + + + + | [facility] | [address] | [place] | [phone] | | [facility] | | [address] | | | - LABORATORY | | | | + + + + + documented in this encounter Visit Diagnoses + + | Diagnosis | + + | Sepsis due to Escherichia coli (E. coli) ([facility]) - Primary Other septicemia due to | | gram-negative organism | + + | Alcoholism ([facility]) Other and unspecified alcohol dependence, unspecified drinking [...] | | | | | | use [place] 10/325 if ordered. If | | | [...] | | | DAILY, First dose on Fri | | AM PST | | | [...]
--- OUTSIDE RECORDS SUMMARY | ~2019-10-02 | XMS | Encounter Summary ---
Demographics + + + | Address | [address] | | | [place] [address] | + + + | Home Phone [...] + + + | Author | [facility] | + + + | Organization | [facility] | + + + | [...] Team Providers + +------+ + | Care Financial Operations Consultant Name | Role | Phone | [...] | | | | [place], | [place], [place] | | | | | [place] [address] | [phone] | | | | | [phone] | | | +--------+ + + + [...]
--- OUTSIDE RECORDS SUMMARY | ~2019-10-02 | XMS | Encounter Summary ---
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 [facility] | | | | | | [address], | | | | | | [place] [address] | | | | + + + + + + + + | Specimen | + + | Blood specimen | | (specimen) | + + + + + + + | Performing | Address | City/State/Zipcode | Phone Number | | Organization | | | | + + + + + | [facility] | [address] | [place] [address] | | | [facility] | | | | | SHO JERONIMO [...] CENTER | | | | 3.5Performed by [facility] [address] | | LABORATORY | | | | [place] | | [place] | | | | [address] | | | | + + + + + + + + | Specimen | + + | Blood specimen | | (specimen) | + + + + + + + | Performing | Address | City/State/Zipcode | Phone Number | | Organization | | | | + + + + + | [facility] | [address] | [place] [address] | | | [facility] | | | | | LABORATORY PHANI [...] Estimated | 90Comment: eGFR<60 | >=90 | [facility] | | | GFR | consistent with impaired | mL/min/1.73m2 | [facility]ED | | | | kidney function.For | | HEART | | | | Americans, | | MEDICAL | | | | multiply the calculated | | CENTER | | | | GFR by 1.210Performed by | | LABORATORY | | | | [facility] [address], | | [place] | | | | [place] [address] | | | | + + + + + + + + | Specimen | + + | Blood specimen | | (specimen) | + + + + + + + | Performing | Address | City/State/Zipcode | Phone Number | | Organization | | | | + + + + + | [facility] | [address] | [place] [address] | | | [facility] | | | | | LABORATORY PHANI [...] [facility] NCE | | | | by [facility] [address], | | SACRED | | | | [place] | | HEART | | | |Performed by [facility] [address], [place], [place] | | MEDICAL | | | [...] + + | [facility] | [address] | [place] | | | [facility] | [...] | famotidine (PEPCID) injection | Given | 10/01/20 | 20 mg | | | | [...] | | | | | | | cezuxo-srd-phfvz use of at least | | | [...] | | | | AC, NPO, Daytime 3839-8096 Use | | | | | | | NIGHT DOSE for doses scheduled: | | | | | | | HS, 3AM, Nighttime 8928-5746 | | | | | | | [...] | | | | | modification) on [facility] 06/22/19 at | | | | [...] mg | | | | Oral, NIGHTLY Mary Grace RODRIGUEZ, | | 19 12:03 | | | [...] | | | | | modification) on [facility] 06/22/19 at | | | | [...] | | | | | modification) on [facility] 06/22/19 at | | | | [...]
--- OUTSIDE RECORDS SUMMARY | ~2019-10-02 | XMS | Encounter Summary ---
Demographics + + + | Address | [address] | | | [place] [address] | + + + | Home Phone | | + + + | Preferred Language | Unknown | + + + | Marital Status | Single | + + + | Baptism Affiliation [...] + +---------+ + | [employer] Jay [employer] Treessa | ECON | Unknown | | | Devika | | | | + + +---------+ + Care Team Providers + +------+ + | Care Model Maker Firearms Name | Role | Phone | + [...] + + | 09/23/ | Emergency | [facility] Emergency | | | | 2009 | | Department [address] | | | | | [address] | | | | | | [facility] | | | | | | [place], [place] | | | | | | [address] | | | | | | [phone] | | | +--------+ + + + [...]
--- OUTSIDE RECORDS SUMMARY | ~2019-10-02 | XMS | Encounter Summary ---
Demographics + + + | Address | [address] | | | [place] [address] | + + + | Home Phone | | + + + | Preferred Language | Unknown | + + + | Marital Status | Single | + + + | Confucianism Affiliation | Unknown | + + + [...] Team Providers + +------+ + | Care Equipment Operator/Laborer/Supervisor Name | Role | Phone | + [...] Torres | | | | | | [facility] and | | | | | | Counseling [address] | | | | | | [address] [place], | | | | | | [place] [address] | | | | | | [phone] | | | | | | | [...] | | + +---------+ + + | [facility] DEPARTMENT OF | | | | [...] | | + +---------+ + + | [facility] DEPARTMENT OF | | | | | [...] | | + +---------+ + + | [facility] DEPARTMENT OF | | | | [...] | | + +---------+ + + | [facility] DEPARTMENT OF | | | | [...]
--- OUTSIDE RECORDS SUMMARY | ~2019-10-02 | XMS | Encounter Summary ---
Demographics + + + | Address | [address] | | | [place] [address] | + + + | Home Phone [...] Team Providers + +------+ + | Care Machinist Set Up Name | Role | Phone | + [...] | | | | [place], | [place], [place] | | | | | [place] [address] | [phone] | | | | | [phone] | | | +--------+ + + + [...]
--- OUTSIDE RECORDS SUMMARY | ~2019-10-02 | XMS | Encounter Summary ---
Demographics + + + | Address | [address] | | | [place] [address] | + + + | Home Phone [...] Team Providers + +------+ + | Care Inner Tube Tuber Machine Operator Name | Role | Phone | + +------+ + PCP | Unavailable | + +------+ + Encounter Details +--------+ + + + + | Date | Type | Department | Care Team | Description | +--------+ + + + + | 11/22/ | Hospital | [facility] | Herm[facility]iana | Seizure (HCC); | | 2015 - | Encounter | [facility] [address] | Subdural hematoma, | | | | [address] | [address] | post-traumatic, | | 11/26/ | | [place], [place] | [place] [address] | initial encounter | | 2014 | | [id number] | [phone] | (HCC); 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 HISTORY OF PRESENT ILLNESS The patient is a 53 y.o. male with significant past medical history. 53 year old male transferred to this facility from [facility] for further evalu ation. The patient [...] if needed. Given report of potential seizure NEWSPAPER CLIPPER I asked staff to confirm the dose [...] this jae presently. Pt kept on there NEWSPAPER CLIPPER meds as possible. 11/26/14: patient still ready to d/c once the talha arrives. Nursing is looking into this f urther. The tsh is high but the T4 is in normal range. Would recc [facility] Recent Labs Lab 11/25/14 0529 11/23/14 0425 TSH -- 12.42* FREET4 0.9 -- Past Medical History Diagnosis Date Alcohol abuse Frequent falls Drug abuse Past Surgical History Procedure Laterality Date No past surgeries Craniotomy Right 10/11/2014 Procedure: CRANIOTOMY - FOR BLEED; Surgeon: Anthony Chong MD; Location: [facility] IN OR; Service: Neurosurgery; Laterality: Right; Craniectomy Right 10/11/2014 Procedure: CRANIECTOMY; Surgeon: Anthony Chong MD; Location: [facility] OR; Ser vice: Neurosurgery; Laterality: Right; Allergies [...] Value Units Date/Time CT head without contrast [[id number]] Resulted: 11/23/14719 Order Status: Completed Updated: 11/23/14724 Narrative: EVANS MCGUIRE [address] HEAD WO CONTRAST 11/23/2014 7:13 AM INDICATION: Altered mental status, hemorrhage COMPARISON: 11/22/14 TECHNIQUE: CT scan of the head without contrast. 5-mm axial noncontrast images were acquir ed from the foramen magnum through the cranial vertex. FINDINGS: On bullet lubricant mixer imaging, there is normal craniocervical alignment with [...] with MRI could be performed. Head Non-Con [[id number]] Resulted: 11/22/142119 Order Status: Completed Updated: 11/22/142124 Narrative: EVANS MCGUIRE CT HEAD WO CONTRAST 11/22/2014 9:08 PM HISTORY: 53 years. Male. Subdural hematoma. TECHNIQUE: 5-mm axial noncontrast images were acquired from the foramen magnum through the cranial fidelina amadeo. COMPARISON: CT head noncontrast 11/22/2014 performed at [facility] 10/14/2014 FINDINGS: An extensive right-sided craniectomy is [...] of the head post right craniectomy. Disposition: senior care Condition: Stable Code Status: Full Code Discharge [...] orders. Aspiration precautions Fall precautions Follow up: [facility] [address] [facility] [address] In 4 weeks to eval for replacement of skull flap or sooner if needed Carlos Mcconnell MD [address] [place] [id number] In 1 week or next available whichever [...] Date of Service: 11/25/14 1015 Status: Signed Garnett Mechanic: Miguel Ángel John MD (Physician) [facility] Service: Hospitalist Discharge Summary Date of [...] H&P 11/23/14 0252 Expand All Collapse All [facility] Service: Hospitalist Admission History & Physical Date of Admission: 11/22/2014 Requesting Physician: [facility] Reason for Admission: SZ and SDH History Obtained From: patient CHIEF COMPLAINT: SZ and MARSH. HISTORY OF PRESENT ILLNESS The patient is a 53 y.o. male with significant past medical history. 53 year old male transferred to this facility from [facility] for further evalu ation. The patient [...] if needed. Given report of potential seizure NEWSPAPER CLIPPER I asked staff to confirm the dose [...] this jae presently. Pt kept on there NEWSPAPER CLIPPER meds as possible. 11/25/14: patient still ready to d/c once the talha arrives. Nursing is looking into this f urther. Past Medical History Diagnosis Date Alcohol abuse Frequent falls Drug abuse Past Surgical History Procedure Laterality Date No past surgeries Craniotomy Right 10/11/2014 Procedure: CRANIOTOMY - FOR BLEED; Surgeon: Anthony Chong MD; Location: [facility] IN OR; Service: Neurosurgery; Laterality: Right; Craniectomy Right 10/11/2014 Procedure: CRANIECTOMY; Surgeon: Anthony Chong MD; Location: [facility] OR; Ser vice: Neurosurgery; Laterality: Right; Allergies [...] Value Units Date/Time CT head without contrast [[id number]] Resulted: 11/23/14719 Order Status: Completed Updated: 11/23/14724 Narrative: EVANS LOCKETTKATHI [address] HEAD WO CONTRAST 11/23/2014 7:13 AM INDICATION: Altered mental status, hemorrhage COMPARISON: 11/22/14 TECHNIQUE: CT scan of the head without contrast. 5-mm axial noncontrast images were acquir ed from the foramen magnum through the cranial vertex. FINDINGS: On bullet lubricant mixer imaging, there is normal craniocervical alignment with [...] with MRI could be performed. Head Non-Con [[id number]] Resulted: 11/22/142119 Order Status: Completed Updated: 11/22/142124 Narrative: EVANS MCGUIRE CT HEAD WO CONTRAST 11/22/2014 9:08 PM HISTORY: 53 years. Male. Subdural hematoma. TECHNIQUE: 5-mm axial noncontrast images were acquired from the foramen magnum through the cranial fidelina amadeo. COMPARISON: CT head noncontrast 11/22/2014 performed at [facility] 10/14/2014 FINDINGS: An extensive right-sided craniectomy is [...] of the head post right craniectomy. Disposition: senior care Condition: Stable Code Status: Full Code Discharge [...] orders. Aspiration precautions Fall precautions Follow up: [facility] [address] [facility] [id number] In 4 weeks to eval for replacement of skull flap or sooner if needed Carlos Mcconnell MD [address] [place] [address] In 1 week or next available whichever [...] 1934 Date of Service: 11/24/1436 Status: Signed Garnett Mechanic: Miguel Ángel John MD (Physician) [facility] Service: Hospitalist Discharge Summary Date of [...] H&P 11/23/14 0252 Expand All Collapse All [facility] Service: Hospitalist Admission History & Physical Date of Admission: 11/22/2014 Requesting Physician: Carter , Emergency Department Reason for Admission: SZ and SDH History Obtained From: patient CHIEF COMPLAINT: SZ and MARSH. HISTORY OF PRESENT ILLNESS The patient is a 53 y.o. male with significant past medical history. 53 year old male transferred to this facility from [facility] for further evalu ation. The patient [...] if needed. Given report of potential seizure NEWSPAPER CLIPPER I asked staff to confirm the dose [...] this jae presently. Pt kept on there NEWSPAPER CLIPPER meds as possible. Past Medical History Diagnosis Date Alcohol abuse Frequent falls Drug abuse Past Surgical History Procedure Laterality Date No past surgeries Craniotomy Right 10/11/2014 Procedure: CRANIOTOMY - FOR BLEED; Surgeon: Anthony Chong MD; Location: [facility] IN OR; Service: Neurosurgery; Laterality: Right; Craniectomy Right 10/11/2014 Procedure: CRANIECTOMY; Surgeon: Anthony Chong MD; Location: [facility] OR; Ser vice: Neurosurgery; Laterality: [...] Value Units Date/Time CT head without contrast [[id number]] Resulted: 11/23/14719 Order Status: Completed Updated: 11/23/14724 Narrative: EVANS MCGUIRE [address] HEAD WO CONTRAST 11/23/2014 7:13 AM INDICATION: Altered mental status, hemorrhage COMPARISON: 11/22/14 TECHNIQUE: CT scan of the head without contrast. 5-mm axial noncontrast images were acquir ed from the foramen magnum through the cranial vertex. FINDINGS: On bullet lubricant mixer imaging, there is normal craniocervical alignment with [...] with MRI could be performed. Head Non-Con [[id number]] Resulted: 11/22/142119 Order Status: Completed Updated: 11/22/142124 Narrative: EVANS LOCKETTKATHI CT HEAD WO CONTRAST 11/22/2014 9:08 PM HISTORY: 53 years. Male. Subdural hematoma. TECHNIQUE: 5-mm axial noncontrast images were acquired from the foramen magnum through the cranial fidelina amadeo. COMPARISON: CT head noncontrast 11/22/2014 performed at [facility] 10/14/2014 FINDINGS: An extensive right-sided craniectomy is [...] of the head post right craniectomy. Disposition: senior care Condition: Stable Code Status: Full Code No discharge procedures on file. Follow up: [facility] [address] [facility] [address] In 4 weeks to eval for replacement of skull flap or sooner if needed Carlos Mcconnell MD [address] [place] [id number] In 1 week or next available whichever [...] 11/26/141714 Date of Service: 11/26/141713 Status: Signed Garnett Mechanic: Mirtha Suh RN (Registered Nurse) Discharge packet given to transport drivers, report on pt given, all questions answered. IV removed. Report called to Na GALARZA at [facility]. Patient left via transport to [facility]. onver alem Transaction, Provider Unknown - 11/26/2014 4:18 PM PDT Case Management by Josseline Mera RN at 11/26/14 1618 Author: Josseline Mera RN Service: (none) Author Type: Software Development Coordinator Filed: 11/26/14 1619 Date of Service: 11/26/14 1618 Status: Signed Garnett Mechanic: Josseline Mera RN (Software Development Coordinator) Disposition: [facility] Transportation: [place] Medicaid-ambulance All orders, signed AVS, and prescriptions have been faxed All DC paperwork completed Patient and family in agreement with discharge plan Medicare important message (N/A): Josseline Mera onver alem Transaction, Provider Unknown - 11/26/2014 9:08 AM PDT Case Management by Josseline Mera RN at 11/26/14 0908 Author: Josseline Mera RN Service: (none) Author Type: Software Development Coordinator Filed: 11/26/14 1320 Date of Service: 11/26/14 0908 Status: Addendum Garnett Mechanic: Josseline Mera RN (Software Development Coordinator) Related Notes: Original Note by Josseline Mera RN (Software Development Coordinator) filed at 11/26/14 0954 Discharge Plans: Informed that helmet did not arrive on Wednesday as promised, thus pt has not been discharged. Call placed to [facility] and they are indicating it will be deli qamar by 10:30am today. [facility] ([place]) informed of plans to DC today. Stretcher [employer] arranged for 2pm today. Paperwork completed, ready for faxing when helmet arrives. 11:00 Notified [place] Medicaid transport that patient has been discharged and his helmet is her e. 1317 called [facility] ([phone]) and they are in route and (possibly here by 4:30), will call us when closer so we can have pt ready for transport. onver alem Transaction, Provider Unknown - 11/23/2014 9:16 AM PST Case Management by Josseline Mera RN at 11/23/14 0916 Author: Josseline Mera RN Service: (none) Author Type: Software Development Coordinator Filed: 11/23/14 1212 Date of Service: 11/23/14915 Status: Addendum Garnett Mechanic: Josseline Mera RN (Software Development Coordinator) Related Notes: Original Note by Josseline Mera RN (Software Development Coordinator) filed at 11/23/14 0931 Discharge Planning: Phoned Evans's father Jay Jay ([phone]) to discuss DC plans. He indicated that Evans has been living [facility] and the plan is for him to [...] phone, ended the call. I did call [facility] and they are willing to take Evans back when it is appropriate. Th ey are asking that we arrange transport because of his seizures and spontaneous activity it may not be safe, and that he does not have his helmet here. [place] Medicaid Transport ) contacted and they can provide stretcher transport but will need definite time to transport. onver alem Transaction, Provider Unknown - 11/23/2014 8:43 AM PST Nurse Progress Note by Mitsy Hays RN at 11/23/1443 Author: Misty Hays RN Service: (none) Author Type: Registered Nurse Filed: 11/23/14 1410 Date of Service: 11/23/14842 Status: Addendum Garnett Mechanic: Misty Hays RN (Registered Nurse) Related Notes: Original Note by Misty Hays RN (Registered Nurse) filed at [phone]: Attempted to call Teressa ([phone]) back to give updates and ask pts [...] she had picked up the helmet from [facility] and was not planning on co elizabeth to see the patient until Wednesday. Explained the importance of the helmet. Mother did no t seem to understand importance. onver alem Transaction, Provider Unknown - 11/23/2014 6:29 AM PST Progress Notes by Kyrie Payne RPH at 11/23/14628 Author: Kyrie Payne RPH Service: (none) Author Type: Pharmacist Filed: 11/23/14629 Date of Service: 11/23/1429 Status: Signed Garnett Mechanic: Kyrie Payne RPH (Pharmacist) Scr = 0.6- [...] | | | | | | [facility] [address] | | | | | | [place] [address] | | | | | | [phone] | | | | | | | [...] | | performed at [facility], [address] | [address] | LAB | | | | [address], | | | | | | [place] [address] | | | | + + + + + + | RED CELL | 3.88 (L)Comment: Testing | 4.20 - 5.70 | EXTERNAL | | | COUNT | performed at [facility], [address] | [address] | LAB | | | | [address], | | | | | | [place] [address] | | | | + + + + + + | Hgb | 12.3 (L)Comment: Testing | 13.2 - 17.0 | EXTERNAL | | | | performed at [facility], [address] | g/dL | LAB | | | | [address], | | | | | | [place] [address] | | | | + + + + + + | Hematocrit, | 36.2 (L)Comment: Testing | 39.0 - 50.0 % | EXTERNAL | | | POC | performed at [facility], [address] | | LAB | | | | [address], | | | | | | [place] [address] | | | | + + + + + + | MCV | 93.4Comment: Testing | 80.0 - 100.0 fl | EXTERNAL | | | | performed at [facility], [address] | | LAB | | | | [address], | | | | | | [place] [address] | | | | + + + + + + | MCH | 31.7Comment: Testing | 27.0 - 34.0 pg | EXTERNAL | | | | performed at [facility], [address] | | LAB | | | | [address], | | | | | | [place] [address] | | | | + + + + + + | MCHC | 34.0Comment: Testing | 32.0 - 35.5 | EXTERNAL | | | | performed at [facility], [address] | g/dL | LAB | | | | [address], | | | | | | [place] [address] | | | | + + + + + + | RDW-CV | 46.8Comment: Testing | 37 - 53 fl | EXTERNAL | | | | performed at [facility], [address] | | LAB | | | | [address], | | | | | | [place] [address] | | | | + + + + + + | Platelet | 161Comment: Testing | 150 - 400 K/uL | EXTERNAL | | | Count | performed at [facility], [address] | | LAB | | | Plasma | [address], | | | | | | [place] [address] | | | | + + + + + + | MPV | 8.7Comment: Testing | fl | EXTERNAL | | | | performed at [facility], [address] | | LAB | | | | [address], | | | | | | [place] [address] | | | | + + + + + + | Differentia | AUTOMATEDComment: | | EXTERNAL | | | l Type | Testing performed at | | LAB | | | | [facility], [address] | | | | | | [place] | | | | | | [address] | | | | + + + + + + | % Segmented | 64.56Comment: Testing | % | EXTERNAL | | | | performed at [facility], [address] | | LAB | | | Neutrophils | [address], | | | | | | [place], [place] [address] | | | | + + + + + + | % | 18.74Comment: Testing | % | EXTERNAL | | | Lymphocytes | performed at [facility], [address] | | LAB | | | | [address], | | | | | | [place], [place] [address] | | | | + + + + + + | % Monocytes | 11.05Comment: Testing | % | EXTERNAL | | | | performed at [facility], [address] | | LAB | | | | [address], | | | | | | [place] [address] | | | | + + + + + + | % | 4.94Comment: Testing | % | EXTERNAL | | | Eosinophils | performed at [facility], [address] | | LAB | | | | [address], | | | | | | [place] [address] | | | | + + + + + + | % Basophils | 0.71Comment: Testing | % | EXTERNAL | | | | performed at [facility], [address] | | LAB | | | | [address], | | | | | | [place] [address] | | | | + + + + + + | Absolute | 3.91Comment: Testing | 1.90 - 7.40 | EXTERNAL | | | Segmented | performed at [facility], [address] | K/uL | LAB | | | Neutrophils | [address], | | | | | | [place] [address] | | | | + + + + + + | Absolute | 1.14Comment: Testing | 1.00 - 3.90 | EXTERNAL | | | Lymphocytes | performed at [facility], [address] | K/uL | LAB | | | | [address], | | | | | | [place] [address] | | | | + + + + + + | Absolute | 0.67Comment: Testing | 0.00 - 0.80 | EXTERNAL | | | Monocytes | performed at [facility], [address] | K/uL | LAB | | | | [address], | | | | | | [place] [address] | | | | + + + + + + | Absolute | 0.30Comment: Testing | 0.00 - 0.50 | EXTERNAL | | | Eosinophils | performed at [facility], [address] | K/uL | LAB | | | | [address], | | | | | | [place] [address] | | | | + + + + + + | Absolute | 0.04Comment: Testing | 0.00 - 0.10 | EXTERNAL | | | Basophils | performed at [facility], [address] | K/uL | LAB | | | | [address], | | | | | | [place] [address] | | | | + + + [...] | | performed at [facility], [address] | | LAB | | | | [address], | | | | | | [place] [address] | | | | + + + [...] | | performed at [facility], [address] | | LAB | | | | [address], | | | | | | [place] [address] | | | | + + + [...] | | | | | [place] [address] | | | | + + + + + + | K | 3.8Comment: Testing | 3.5 - 4.9 | EXTERNAL | | | | performed at [facility], [address] | mmol/L | LAB | | | | [address], | | | | | | [place] [address] | | | | + + + + + + | Cl | 104Comment: Testing | 99 - 109 mmol/L | EXTERNAL | | | | performed at [facility], [address] | | LAB | | | | [address], | | | | | | [place] [address] | | | | + + + + + + | CO2 | 27Comment: Testing | 23 - 32 mmol/L | EXTERNAL | | | | performed at [facility], [address] | | LAB | | | | [address], | | | | | | [place] [address] | | | | + + + + + + | Anion Gap | 9Comment: Testing | 5 - 20 mmol/L | EXTERNAL | | | | performed at [facility], [address] | | LAB | | | | [address], | | | | | | [place] [address] | | | | + + + + + + | Glucose, | 99Comment: Testing | 65 - 99 mg/dL | EXTERNAL | | | Fasting | performed at [facility], [address] | | LAB | | | | [address], | | | | | | [place] [address] | | | | + + + + + + | BUN | 8Comment: Testing | 8 - 25 mg/dL | EXTERNAL | | | | performed at [facility], [address] | | LAB | | | | [address], | | | | | | [place] [address] | | | | + + + + + + | Creatinine | 0.62 (L)Comment: Testing | 0.70 - 1.30 | EXTERNAL | | | | performed at [facility], [address] | mg/dL | LAB | | | | [address], | | | | | | [place] [address] | | | | + + + + + + | BUN/Creatin | 13Comment: Testing | | EXTERNAL | | | ine Ratio | performed at [facility], [address] | | LAB | | | | [address], | | | | | | [place] [address] | | | | + + + + + + | Calcium | 8.9Comment: Testing | 8.5 - 10.5 | EXTERNAL | | | | performed at [facility], [address] | mg/dL | LAB | | | | [address], | | | | | | [place] [address] | | | | + + + + + + | Protein, | 6.7Comment: Testing | 6.3 - 8.2 g/dL | EXTERNAL | | | Total | performed at [facility], [address] | | LAB | | | | [address], | | | | | | [place] [address] | | | | + + + + + + | Albumin | 3.2 (L)Comment: Testing | 3.6 - 5.0 g/dL | EXTERNAL | | | | performed at [facility], [address] | | LAB | | | | [address], | | | | | | [place] [address] | | | | + + + + + + | Globulin | 3.5Comment: Testing | 1.3 - 4.9 g/dL | EXTERNAL | | | | performed at [facility], [address] | | LAB | | | | [address], | | | | | | [place] [address] | | | | + + + + + + | A/G Ratio | 0.9 (L)Comment: Testing | 1.0 - 2.4 | EXTERNAL | | | | performed at [facility], [address] | | LAB | | | | [address], | | | | | | [place] [address] | | | | + + + + + + | Bilirubin | 0.4Comment: Testing | 0.1 - 1.5 mg/dL | EXTERNAL | | | Total | performed at [facility], [address] | | LAB | | | | [address], | | | | | | [place] [address] | | | | + + + + + + | ALP, | 105Comment: Testing | 35 - 115 U/L | EXTERNAL | | | External | performed at [facility], [address] | | LAB | | | | [address], | | | | | | [place] [address] | | | | + + + + + + | AST | 26Comment: Testing | 10 - 45 U/L | EXTERNAL | | | | performed at [facility], [address] | | LAB | | | | [address], | | | | | | [place] [address] | | | | + + + + + + | ALT | 19Comment: Testing | 10 - 65 U/L | EXTERNAL | | | | performed at [facility], [address] | | LAB | | | | [address], | | | | | | [place] [address] | | | | + + + [...] [address], | | | | | | [place] [address] | | | | + + + [...] | | performed at [facility], [address] | K/uL | LAB | | | | [address], | | | | | | [place] [address] | | | | + + + + + + | RED CELL | 4.10 (L)Comment: Testing | 4.20 - 5.70 | EXTERNAL | | | COUNT | performed at [facility], [address] | M/uL | LAB | | | | [address], | | | | | | [place] [address] | | | | + + + + + + | Hgb | 12.9 (L)Comment: Testing | 13.2 - 17.0 | EXTERNAL | | | | performed at [facility], [address] | g/dL | LAB | | | | [address], | | | | | | [place] [address] | | | | + + + + + + | Hematocrit, | 38.6 (L)Comment: Testing | 39.0 - 50.0 % | EXTERNAL | | | POC | performed at [facility], [address] | | LAB | | | | [address], | | | | | | [place] [address] | | | | + + + + + + | MCV | 94.2Comment: Testing | 80.0 - 100.0 fl | EXTERNAL | | | | performed at [facility], [address] | | LAB | | | [address], | | | | | | [place] [address] | | | | + + + + + + | MCH | 31.4Comment: Testing | 27.0 - 34.0 pg | EXTERNAL | | | | performed at [facility], [address] | | LAB | | | | [address], | | | | | | [place] [address] | | | | + + + + + + | MCHC | 33.3Comment: Testing | 32.0 - 35.5 | EXTERNAL | | | | performed at [facility], [address] | g/dL | LAB | | | | [address], | | | | | | [place] [address] | | | | + + + + + + | RDW-CV | 46.8Comment: Testing | 37 - 53 fl | EXTERNAL | | | | performed at [facility], [address] | | LAB | | | | [address], | | | | | | [place] [address] | | | | + + + + + + | Platelet | 161Comment: Testing | 150 - 400 K/uL | EXTERNAL | | | Count | performed at [facility], [address] | | LAB | | | Plasma | [address], | | | | | | [place] [address] | | | | + + + + + + | MPV | 8.9Comment: Testing | fl | EXTERNAL | | | | performed at [facility], [address] | | LAB | | | | [address], | | | | | | [place] [address] | | | | + + + + + + | Differentia | AUTOMATEDComment: | | EXTERNAL | | | l Type | Testing performed at | | LAB | | | | [facility], [address] | | | | | | [place] | | | | | | [address] | | | | + + + + + + | % Segmented | 60.71Comment: Testing | % | EXTERNAL | | | | performed at [facility], [address] | | LAB | | | Neutrophils | [address], | | | | | | [place] [address] | | | | + + + + + + | % | 21.02Comment: Testing | % | EXTERNAL | | | Lymphocytes | performed at [facility], [address] | | LAB | | | | [address], | | | | | | [place] [address] | | | | + + + + + + | % Monocytes | 12.59Comment: Testing | % | EXTERNAL | | | | performed at [facility], [address] | | LAB | | | | [address], | | | | | | [place] [address] | | | | + + + + + + | % | 5.10Comment: Testing | % | EXTERNAL | | | Eosinophils | performed at [facility], [address] | | LAB | | | | [address], | | | | | | [place] [address] | | | | + + + + + + | % Basophils | 0.58Comment: Testing | % | EXTERNAL | | | | performed at [facility], [address] | | LAB | | | | [address], | | | | | | [place] [address] | | | | + + + + + + | Absolute | 3.70Comment: Testing | 1.90 - 7.40 | EXTERNAL | | | Segmented | performed at [facility], [address] | K/uL | LAB | | | Neutrophils | [address], | | | | | | [place] [address] | | | | + + + + + + | Absolute | 1.28Comment: Testing | 1.00 - 3.90 | EXTERNAL | | | Lymphocytes | performed at [facility], [address] | K[address] | LAB | | | | [address], | | | | | | [place] [address] | | | | + + + + + + | Absolute | 0.77Comment: Testing | 0.00 - 0.80 | EXTERNAL | | | Monocytes | performed at [facility], [address] | [address] | LAB | | | | [address], | | | | | | [place] [address] | | | | + + + + + + | Absolute | 0.31Comment: Testing | 0.00 - 0.50 | EXTERNAL | | | Eosinophils | performed at [facility], [address] | K[address] | LAB | | | | [address], | | | | | | [place] [address] | | | | + + + + + + | Absolute | 0.04Comment: Testing | 0.00 - 0.10 | EXTERNAL | | | Basophils | performed at [facility], [address] | K[address] | LAB | | | | [address], | | | | | | [place] [address] | | | | + + [...] | | | (REF) | performed at [facility], [address] | | LAB | | | | [address], | | | | | | [place] [address] | | | | + + + [...] | | performed at [facility], [address] | | LAB | | | | [address], | | | | | | [place] [address] | | | | + + + [...] | | performed at [facility], [address] | | LAB | | | | [address], | | | | | | [place] [address] | | | | + + + [...] | | | | | [place] [address] | | | | + + + + + + | K | 3.8Comment: Testing | 3.5 - 4.9 | EXTERNAL | | | | performed at [facility], [address] | mmol/L | LAB | | | | [address], | | | | | | [place] [address] | | | | + + + + + + | Cl | 104Comment: Testing | 99 - 109 mmol/L | EXTERNAL | | | | performed at [facility], [address] | | LAB | | | | [address], | | | | | | [place] [address] | | | | + + + + + + | CO2 | 28Comment: Testing | 23 - 32 mmol/L | EXTERNAL | | | | performed at [facility], [address] | | LAB | | | | [address], | | | | | | [place] [address] | | | | + + + + + + | Anion Gap | 8Comment: Testing | 5 - 20 mmol/L | EXTERNAL | | | | performed at [facility], [address] | | LAB | | | | [address], | | | | | | [place] [address] | | | | + + + + + + | Glucose, | 107 (H)Comment: Testing | 65 - 99 mg/dL | EXTERNAL | | | Fasting | performed at [facility], [address] | | LAB | | | | [address], | | | | | | [place] [address] | | | | + + + + + + | BUN | 6 (L)Comment: Testing | 8 - 25 mg/dL | EXTERNAL | | | | performed at [facility], [address] | | LAB | | | | [address], | | | | | | [place] [address] | | | | + + + + + + | Creatinine | 0.59 (L)Comment: Testing | 0.70 - 1.30 | EXTERNAL | | | | performed at [facility], [address] | mg/dL | LAB | | | | [address], | | | | | | [place] [address] | | | | + + + + + + | BUN/Creatin | 10Comment: Testing | | EXTERNAL | | | ine Ratio | performed at [facility], [address] | | LAB | | | | [address], | | | | | | [place] [address] | | | | + + + + + + | Calcium | 9.2Comment: Testing | 8.5 - 10.5 | EXTERNAL | | | | performed at [facility], [address] | mg/dL | LAB | | | | [address], | | | | | | [place] [address] | | | | + + + [...] | | | | | [place] [address] | | | | + + + + + + | Globulin | 3.6Comment: Testing | 1.3 - 4.9 g/dL | EXTERNAL | | | | performed at [facility], [address] | | LAB | | | | [address], | | | | | | [place] [address] | | | | + + + + + + | A/G Ratio | 0.9 (L)Comment: Testing | 1.0 - 2.4 | EXTERNAL | | | | performed at [facility], [address] | | LAB | | | | [address], | | | | | | [place] [address] | | | | + + + + + + | Bilirubin | 0.5Comment: Testing | 0.1 - 1.5 mg/dL | EXTERNAL | | | Total | performed at [facility], [address] | | LAB | | | | [address], | | | | | | [place] [address] | | | | + + + + + + | ALP, | 115Comment: Testing | 35 - 115 U/L | EXTERNAL | | | External | performed at [facility], [address] | | LAB | | | | [address], | | | | | | [place] [address] | | | | + + + + + + | AST | 27Comment: Testing | 10 - 45 U/L | EXTERNAL | | | | performed at [facility], [address] | | LAB | | | | [address], | | | | | | [place] [address] | | | | + + + + + + | ALT | 21Comment: Testing | 10 - 65 U/L | EXTERNAL | | | | performed at [facility], [address] | | LAB | | | | [facility], | | | | | | [place] [address] | | | | + + + [...] W | | | | | | [facility], | | | | | | [place] [address] | | | | + + + [...] | | performed at [facility], [address] | K/uL | LAB | [...] | | | | | [place] [address] | | | | + + + + + + | Hgb | 12.3 (L)Comment: Testing | 13.2 - 17.0 | EXTERNAL | | | | performed at [facility], [address] | g/dL | LAB | | | | [address], | | | | | | [place] [address] | | | | + + + + + + | Hematocrit, | 37.8 (L)Comment: Testing | 39.0 - 50.0 % | EXTERNAL | | | POC | performed at [facility], [address] | | LAB | | | | [address], | | | | | | [place] [address] | | | | + + + + + + | MCV | 94.3Comment: Testing | 80.0 - 100.0 fl | EXTERNAL | | | | performed at [facility], [address] | | LAB | | | | [address], | | | | | | [place] [address] | | | | + + + + + + | MCH | 30.6Comment: Testing | 27.0 - 34.0 pg | EXTERNAL | | | | performed at [facility], [address] | | LAB | | | | [address], | | | | | | [place] [address] | | | | + + + + + + | MCHC | 32.4Comment: Testing | 32.0 - 35.5 | EXTERNAL | | | | performed at [facility], [address] | g/dL | LAB | | | | [address], | | | | | | [place] [address] | | | | + + + + + + | RDW-CV | 47.7Comment: Testing | 37 - 53 fl | EXTERNAL | | | | performed at [facility], [address] | | LAB | | | | [address], | | | | | | [place] [address] | | | | + + + + + + | Platelet | 153Comment: Testing | 150 - 400 K/uL | EXTERNAL | | | Count | performed at [facility], [address] | | LAB | | | Plasma | [address], | | | | | | [place] [address] | | | | + + + + + + | MPV | 9.0Comment: Testing | fl | EXTERNAL | | | | performed at [facility], [address] | | LAB | | | | [address], | | | | | | [place] [address] | | | | + + + + + + | Differentia | AUTOMATEDComment: | | EXTERNAL | | | l Type | Testing performed at | | LAB | | | | [facility], [address] | | | | | | [place] | | | | | | [address] | | | | + + + + + + | % Segmented | 70.29Comment: Testing | % | EXTERNAL | | | | performed at [facility], [address] | | LAB | | | Neutrophils | [address], | | | | | | [place] [address] | | | | + + + + + + | % | 14.74Comment: Testing | % | EXTERNAL | | | Lymphocytes | performed at [facility], [address] | | LAB | | | | [address], | | | | | | [place] [address] | | | | + + + + + + | % Monocytes | 10.97Comment: Testing | % | EXTERNAL | | | | performed at [facility], [address] | | LAB | | | | [address], | | | | | | [place] [address] | | | | + + + + + + | % | 3.52Comment: Testing | % | EXTERNAL | | | Eosinophils | performed at [facility], [address] | | LAB | | | | [address], | | | | | | [place] [address] | | | | + + + + + + | % Basophils | 0.48Comment: Testing | % | EXTERNAL | | | | performed at [facility], [address] | | LAB | | | | [address], | | | | | | [place] [address] | | | | + + + + + + | Absolute | 5.09Comment: Testing | 1.90 - 7.40 | EXTERNAL | | | Segmented | performed at [facility], [address] | K/uL | LAB | | | Neutrophils | [address], | | | | | | [place] [address] | | | | + + + + + + | Absolute | 1.07Comment: Testing | 1.00 - 3.90 | EXTERNAL | | | Lymphocytes | performed at [facility], [address] | [address] | LAB | | | | [address], | | | | | | [place] [address] | | | | + + + + + + | Absolute | 0.79Comment: Testing | 0.00 - 0.80 | EXTERNAL | | | Monocytes | performed at [facility], [address] | [address] | LAB | | | | [address], | | | | | | [place] [address] | | | | + + + + + + | Absolute | 0.26Comment: Testing | 0.00 - 0.50 | EXTERNAL | | | Eosinophils | performed at [facility], [address] | K[address] | LAB | | | | [address], | | | | | | [place] [address] | | | | + + + + + + | Absolute | 0.03Comment: Testing | 0.00 - 0.10 | EXTERNAL | | | Basophils | performed at [facility], [address] | K/uL | LAB | | | | [address], | | | | | | [place] [address] | | | | + + + [...] | | performed at [facility], [address] | | LAB | | | | [address], | | | | | | [place] [address] | | | | + + + [...] | | performed at [facility], [address] | | LAB | | | | [address], | | | | | | [place] [address] | | | | + + + [...] | | | | | [place] [address] | | | | + + + + + + | K | 4.0Comment: Testing | 3.5 - 4.9 | EXTERNAL | | | | performed at [facility], [address] | mmol/L | LAB | | | | [address], | | | | | | [place] [address] | | | | + + + + + + | Cl | 102Comment: Testing | 99 - 109 mmol/L | EXTERNAL | | | | performed at [facility], [address] | | LAB | | | | [address], | | | | | | [place] [address] | | | | + + + + + + | CO2 | 26Comment: Testing | 23 - 32 mmol/L | EXTERNAL | | | | performed at [facility], [address] | | LAB | | | | [address], | | | | | | [place] [address] | | | | + + + + + + | Anion Gap | 11Comment: Testing | 5 - 20 mmol/L | EXTERNAL | | | | performed at [facility], [address] | | LAB | | | | [address], | | | | | | [place] [address] | | | | + + + + + + | Glucose, | 103 (H)Comment: Testing | 65 - 99 mg/dL | EXTERNAL | | | Fasting | performed at [facility], [address] | | LAB | | | | [address], | | | | | | [place] [address] | | | | + + + + + + | BUN | 6 (L)Comment: Testing | 8 - 25 mg/dL | EXTERNAL | | | | performed at [facility], [address] | | LAB | | | | [address], | | | | | | [place] [address] | | | | + + + + + + | Creatinine | 0.63 (L)Comment: Testing | 0.70 - 1.30 | EXTERNAL | | | | performed at [facility], [address] | mg/dL | LAB | | | | [address], | | | | | | [place] [address] | | | | + + + + + + | BUN/Creatin | 10Comment: Testing | | EXTERNAL | | | ine Ratio | performed at [facility], [address] | | LAB | | | | [address], | | | | | | [place] [address] | | | | + + + + + + | Calcium | 9.3Comment: Testing | 8.5 - 10.5 | EXTERNAL | | | | performed at [facility], [address] | mg/dL | LAB | | | | [address], | | | | | | [place] [address] | | | | + + + + + + | Protein, | 6.9Comment: Testing | 6.3 - 8.2 g/dL | EXTERNAL | | | Total | performed at [facility], [address] | | LAB | | | | [address], | | | | | | [place] [address] | | | | + + + + + + | Albumin | 3.5 (L)Comment: Testing | 3.6 - 5.0 g/dL | EXTERNAL | | | | performed at [facility], [address] | | LAB | | | | [address], | | | | | | [place] [address] | | | | + + + + + + | Globulin | 3.4Comment: Testing | 1.3 - 4.9 g/dL | EXTERNAL | | | | performed at [facility], [address] | | LAB | | | | [address], | | | | | | [place] [address] | | | | + + + + + + | A/G Ratio | 1.0Comment: Testing | 1.0 - 2.4 | EXTERNAL | | | | performed at [facility], [address] | | LAB | | | | [address], | | | | | | [place] [address] | | | | + + + + + + | Bilirubin | 0.5Comment: Testing | 0.1 - 1.5 mg/dL | EXTERNAL | | | Total | performed at [facility], [address] | | LAB | | | | [address], | | | | | | [place] [address] | | | | + + + + + + | ALP, | 103Comment: Testing | 35 - 115 U/L | EXTERNAL | | | External | performed at [facility], [address] | | LAB | | | | [address], | | | | | | [place] [address] | | | | + + + + + + | AST | 27Comment: Testing | 10 - 45 U/L | EXTERNAL | | | | performed at [facility], [address] | | LAB | | | | [address], | | | | | | [place] [address] | | | | + + + + + + | ALT | 23Comment: Testing | 10 - 65 U/L | EXTERNAL | | | | performed at [facility], [address] | | LAB | | | | [facility], | | | | | | [place] [address] | | | | + + + [...] W | | | | | | [facility], | | | | | | [place] [address] | | | | + + + [...] magnum through the cranial vertex. FINDINGS: On bullet lubricant mixer | | | imaging, there is normal [...] the cranial vertex. | | FINDINGS: On bullet lubricant mixer imaging, there is normal craniocervical alignment with [...] | | performed at [facility], [address] | K/uL | LAB | | | | [address], | | | | | | [place] [address] | | | | + + + + + + | RED CELL | 4.01 (L)Comment: Testing | 4.20 - 5.70 | EXTERNAL | | | COUNT | performed at [facility], [address] | M/uL | LAB | | | | [address], | | | | | | [place] [address] | | | | + + + + + + | Hgb | 12.5 (L)Comment: Testing | 13.2 - 17.0 | EXTERNAL | | | | performed at [facility], [address] | g/dL | LAB | | | | [address], | | | | | | [place] [address] | | | | + + + + + + | Hematocrit, | 38.0 (L)Comment: Testing | 39.0 - 50.0 % | EXTERNAL | | | POC | performed at [facility], [address] | | LAB | | | | [address], | | | | | | [place] [address] | | | | + + + + + + | MCV | 94.9Comment: Testing | 80.0 - 100.0 fl | EXTERNAL | | | | performed at [facility], [address] | | LAB | | | | [address], | | | | | | [place] [address] | | | | + + + + + + | MCH | 31.2Comment: Testing | 27.0 - 34.0 pg | EXTERNAL | | | | performed at [facility], [address] | | LAB | | | | [address], | | | | | | [place] [address] | | | | + + + + + + | MCHC | 32.9Comment: Testing | 32.0 - 35.5 | EXTERNAL | | | | performed at [facility], [address] | g/dL | LAB | | | | [address], | | | | | | [place] [address] | | | | + + + + + + | RDW-CV | 47.3Comment: Testing | 37 - 53 fl | EXTERNAL | | | | performed at [facility], [address] | | LAB | | | | [address], | | | | | | [place] [address] | | | | + + + + + + | Platelet | 171Comment: Testing | 150 - 400 K/uL | EXTERNAL | | | Count | performed at [facility], [address] | | LAB | | | Plasma | [address], | | | | | | [place] [address] | | | | + + + + + + | MPV | 8.8Comment: Testing | fl | EXTERNAL | | | | performed at [facility], [address] | | LAB | | | | [address], | | | | | | [place] [address] | | | | + + + + + + | Differentia | AUTOMATEDComment: | | EXTERNAL | | | l Type | Testing performed at | | LAB | | | | [facility], [address] | | | | | | [place] | | | | | | [address] | | | | + + + + + + | % Segmented | 67.69Comment: Testing | % | EXTERNAL | | | | performed at [facility], [address] | | LAB | | | Neutrophils | [address], | | | | | | [place] [address] | | | | + + + + + + | % | 20.09Comment: Testing | % | EXTERNAL | | | Lymphocytes | performed at [facility], [address] | | LAB | | | | [address], | | | | | | [place] [address] | | | | + + + + + + | % Monocytes | 9.27Comment: Testing | % | EXTERNAL | | | | performed at [facility], [address] | | LAB | | | | [address], | | | | | | [place] [address] | | | | + + + + + + | % | 2.66Comment: Testing | % | EXTERNAL | | | Eosinophils | performed at [facility], [address] | | LAB | | | | [address], | | | | | | [place] [address] | | | | + + + + + + | % Basophils | 0.29Comment: Testing | % | EXTERNAL | | | | performed at [facility], [address] | | LAB | | | | [address], | | | | | | [place] [address] | | | | + + + + + + | Absolute | 5.79Comment: Testing | 1.90 - 7.40 | EXTERNAL | | | Segmented | performed at [facility], [address] | K/uL | LAB | | | Neutrophils | [address], | | | | | | [place] [address] | | | | + + + + + + | Absolute | 1.72Comment: Testing | 1.00 - 3.90 | EXTERNAL | | | Lymphocytes | performed at [facility], [address] | K/uL | LAB | | | | [address], | | | | | | [place] [address] | | | | + + + + + + | Absolute | 0.79Comment: Testing | 0.00 - 0.80 | EXTERNAL | | | Monocytes | performed at [facility], [address] | K/[address]L | LAB | | | | [address], | | | | | | [place] [address] | | | | + + + + + + | Absolute | 0.23Comment: Testing | 0.00 - 0.50 | EXTERNAL | | | Eosinophils | performed at [facility], [address] | K/uL | LAB | | | | [address], | | | | | | [place] [address] | | | | + + + + + + | Absolute | 0.03Comment: Testing | 0.00 - 0.10 | EXTERNAL | | | Basophils | performed at [facility], [address] | K/uL | LAB | | | | [address], | | | | | | [place] [address] | | | | + + + [...] | | | | [facility], [address] [facility] | | | | | | [place] | | | | | | [address] | | | | + + + [...] | | | | | [place] [address] | | | | + + + [...] | | performed at [facility], [address] | | LAB | | | | [address], | | | | | | [place] [address] | | | | + + + [...] | | | | | [place] [address] | | | | + + + + + + | K | 4.2Comment: Testing | 3.5 - 4.9 | EXTERNAL | | | | performed at [facility], [address] | mmol/L | LAB | | | | [address], | | | | | | [place] [address] | | | | + + + + + + | Cl | 102Comment: Testing | 99 - 109 mmol/L | EXTERNAL | | | | performed at [facility], [address] | | LAB | | | | [address], | | | | | | [place] [address] | | | | + + + + + + | CO2 | 25Comment: Testing | 23 - 32 mmol/L | EXTERNAL | | | | performed at [facility], [address] | | LAB | | | | [address], | | | | | | [place] [address] | | | | + + + + + + | Anion Gap | 13Comment: Testing | 5 - 20 mmol/L | EXTERNAL | | | | performed at [facility], [address] | | LAB | | | | [address], | | | | | | [place] [address] | | | | + + + + + + | Glucose, | 113 (H)Comment: Testing | 65 - 99 mg/dL | EXTERNAL | | | Fasting | performed at [facility], [address] | | LAB | | | | [address], | | | | | | [place] [address] | | | | + + + + + + | BUN | 4 (L)Comment: Testing | 8 - 25 mg/dL | EXTERNAL | | | | performed at [facility], [address] | | LAB | | | [address], | | | | | | [place] [address] | | | | + + + + + + | Creatinine | 0.60 (L)Comment: Testing | 0.70 - 1.30 | EXTERNAL | | | | performed at [facility], [address] | mg/dL | LAB | | | | [address], | | | | | | [place] [address] | | | | + + + + + + | BUN/Creatin | 7Comment: Testing | | EXTERNAL | | | ine Ratio | performed at [facility], [address] | | LAB | | | | [address], | | | | | | [place] [address] | | | | + + + + + + | Calcium | 9.4Comment: Testing | 8.5 - 10.5 | EXTERNAL | | | | performed at [facility], [address] | mg/dL | LAB | | | | [address], | | | | | | [place] [address] | | | | + + + + + + | Protein, | 7.3Comment: Testing | 6.3 - 8.2 g/dL | EXTERNAL | | | Total | performed at [facility], [address] | | LAB | | | | [address], | | | | | | [place] [address] | | | | + + + + + + | Albumin | 3.7Comment: Testing | 3.6 - 5.0 g/dL | EXTERNAL | | | | performed at [facility], [address] | | LAB | | | | [address], | | | | | | [place] [address] | | | | + + + + + + | Globulin | 3.6Comment: Testing | 1.3 - 4.9 g/dL | EXTERNAL | | | | performed at [facility], [address] | | LAB | | | | [address], | | | | | | [place] [address] | | | | + + + + + + | A/G Ratio | 1.0Comment: Testing | 1.0 - 2.4 | EXTERNAL | | | | performed at [facility], [address] | | LAB | | | | [address], | | | | | | [place] [address] | | | | + + + + + + | Bilirubin | 0.5Comment: Testing | 0.1 - 1.5 mg/dL | EXTERNAL | | | Total | performed at [facility], [address] | | LAB | | | | [address], | | | | | | [place] [address] | | | | + + + + + + | ALP, | 104Comment: Testing | 35 - 115 U/L | EXTERNAL | | | External | performed at [facility], [address] | | LAB | | | | [address], | | | | | | [place] [address] | | | | + + + + + + | AST | 36Comment: Testing | 10 - 45 U/L | EXTERNAL | | | | performed at [facility], [address] | | LAB | | | | [address], | | | | | | [place] [address] | | | | + + + + + + | ALT | 26Comment: Testing | 10 - 65 U/L | EXTERNAL | | | | performed at [facility], [address] | | LAB | | | | [address], | | | | | | [place] [address] | | | | + + + [...] | | | | | | [address], | | | | | | [place] [address] | | | | + + + [...] At | + + + | [facility] 11/22/2014 9:08 PM HISTORY: | | | 53 years. Male. Subdural hematoma. TECHNIQUE: 5-mm axial | | | noncontrast images were acquired from the foramen magnum through the | | | cranial vertex. COMPARISON: CT head noncontrast 11/22/2014 | | | performed at [facility] 10/14/2014 FINDINGS: An | | | extensive [...] Conversion - 05/05/2019 12:20 AM PDT [facility] HEAD WO | | CONTRAST11/22/2014 9:08 PM HISTORY:53 years. Male. Subdural hematoma. TECHNIQUE:5-mm | | axial noncontrast images were acquired from the foramen magnum through the cranial | | vertex. COMPARISON:CT head noncontrast 11/22/2014 performed at [facility] | | 10/14/2014 FINDINGS:An extensive right-sided craniectomy [...] EXTERNAL | | | | performed at [facility];[address] | K/uL | LAB | | | | [address];[place] | | | | | | [address] | | | | + + + + + + | RED CELL | 3.99 (L)Comment: Testing | 4.20 - 5.70 | EXTERNAL | | | COUNT | performed at [facility];[address] | M/uL | LAB | | | | [address];[place] | | | | | | [address] | | | | + + + + + + | Hgb | 12.4 (L)Comment: Testing | 13.2 - 17.0 | EXTERNAL | | | | performed at [facility] [place];888 | g/dL | LAB | | | | [address];[place] | | | | | | [address] | | | | + + + + + + | Hematocrit, | 37.9 (L)Comment: Testing | 39.0 - 50.0 % | EXTERNAL | | | POC | performed at [facility] [place];888 | | LAB | | | | [address];[place] | | | | | | [address] | | | | + + + + + + | MCV | 95.2Comment: Testing | 80.0 - 100.0 fl | EXTERNAL | | | | performed at [facility] [place];888 | | LAB | | | | [address];[place] | | | | | | [address] | | | | + + + + + + | MCH | 31.0Comment: Testing | 27.0 - 34.0 pg | EXTERNAL | | | | performed at [facility] [place];888 | | LAB | | | | [address];[place] | | | | | | [address] | | | | + + + + + + | MCHC | 32.6Comment: Testing | 32.0 - 35.5 | EXTERNAL | | | | performed at [facility] [place];888 | g/dL | LAB | | | | [address];[place] | | | | | | [address] | | | | + + + + + + | RDW-CV | 48.1Comment: Testing | 37 - 53 fl | EXTERNAL | | | | performed at [facility] [place];888 | | LAB | | | | [address];[place] | | | | | | [address] | | | | + + + + + + | Platelet | 165Comment: Testing | 150 - 400 K/uL | EXTERNAL | | | Count | performed at [facility] [place];888 | | LAB | | | Plasma | [address];[place] | | | | | | [address] | | | | + + + + + + | MPV | 9.5Comment: Testing | fl | EXTERNAL | | | | performed at [facility] [place];888 | | LAB | | | | [address];[place] | | | | | | [address] | | | | + + + + + + | Differentia | AUTOMATEDComment: | | EXTERNAL | | | l Type | Testing performed at | | LAB | | | | [facility] [place];[address];[place] [address] | | | | + + + + + + | % Segmented | 79.71Comment: Testing | % | EXTERNAL | | | | performed at [facility] [place];888 | | LAB | | | Neutrophils | [address];[place] | | | | | | [address] | | | | + + + + + + | % | 12.56Comment: Testing | % | EXTERNAL | | | Lymphocytes | performed at [facility] [place];[address] | | LAB | | | | [address];[place] | | | | | | [address] | | | | + + + + + + | % Monocytes | 6.71Comment: Testing | % | EXTERNAL | | | | performed at [facility] [place];[address] | | LAB | | | | [address];[place] | | | | | | [address] | | | | + + + + + + | % | 0.69Comment: Testing | % | EXTERNAL | | | Eosinophils | performed at [facility] [place];[address] | | LAB | | | | [address];[place] | | | | | | [phone] | | | | + + + + + + | % Basophils | 0.33Comment: Testing | % | EXTERNAL | | | | performed at [facility] [place];[address] | | LAB | | | | [address];[place] | | | | | | [phone] | | | | + + + + + + | Absolute | 7.64 (H)Comment: Testing | 1.90 - 7.40 | EXTERNAL | | | Segmented | performed at [facility] [place];888 | K/uL | LAB | | | Neutrophils | [address];[place] | | | | | | [phone] | | | | + + + + + + | Absolute | 1.20Comment: Testing | 1.00 - 3.90 | EXTERNAL | | | Lymphocytes | performed at [facility] [place];888 | K/uL | LAB | | | | [address];[place] | | | | | | [phone] | | | | + + + + + + | Absolute | 0.64Comment: Testing | 0.00 - 0.80 | EXTERNAL | | | Monocytes | performed at [facility] [place];888 | K/uL | LAB | | | | [address];[place] | | | | | | [address] | | | | + + + + + + | Absolute | 0.07Comment: Testing | 0.00 - 0.50 | EXTERNAL | | | Eosinophils | performed at [facility] [place];888 | K/uL | LAB | | | | [address];[place] | | | | | | [address] | | | | + + + + + + | Absolute | 0.03Comment: Testing | 0.00 - 0.10 | EXTERNAL | | | Basophils | performed at [facility] [place];888 | K/uL | LAB | | | | [address];[place] | | | | | | [address] | | | | + + + [...] EXTERNAL | | | | performed at [facility] [place];888 | mmol/L | LAB | | | | [address];[place] | | | | | | [address] | | | | + + + + + + | K | 4.0Comment: Testing | 3.5 - 4.9 | EXTERNAL | | | | performed at [facility] [place];888 | mmol/L | LAB | | | | [address];[place] | | | | | | [address] | | | | + + + + + + | Cl | 105Comment: Testing | 99 - 109 mmol/L | EXTERNAL | | | | performed at [facility] [place];[address] | | LAB | | | | [address];[place] | | | | | | [address] | | | | + + + + + + | CO2 | 25Comment: Testing | 23 - 32 mmol/L | EXTERNAL | | | | performed at [facility] [place];[address] | | LAB | | | | [address];[place] | | | | | | [address] | | | | + + + + + + | Anion Gap | 12Comment: Testing | 5 - 20 mmol/L | EXTERNAL | | | | performed at [facility] [place];[address] | | LAB | | | | [address];[place] | | | | | | [address] | | | | + + + + + + | Glucose, | 114 (H)Comment: Testing | 65 - 99 mg/dL | EXTERNAL | | | Fasting | performed at [facility] [place];[address] | | LAB | | | | [address];[place] | | | | | | [address] | | | | + + + + + + | BUN | 4 (L)Comment: Testing | 8 - 25 mg/dL | EXTERNAL | | | | performed at [facility] [place];[address] | | LAB | | | | [address];[place] | | | | | | [address] | | | | + + + + + + | Creatinine | 0.73Comment: Testing | 0.70 - 1.30 | EXTERNAL | | | | performed at [facility] [place];888 | mg/dL | LAB | | | | [address];[place] | | | | | | [address] | | | | + + + + + + | BUN/Creatin | 5Comment: Testing | | EXTERNAL | | | ine Ratio | performed at [facility] [place];[address] | | LAB | | | | [address];[place] | | | | | | [address] | | | | + + + + + + | Calcium | 8.3 (L)Comment: Testing | 8.5 - 10.5 | EXTERNAL | | | | performed at [facility] [place];888 | mg/dL | LAB | | | | [address];[place] | | | | | | [address] | | | | + + + + + + | Protein, | 7.7Comment: Testing | 6.3 - 8.2 g/dL | EXTERNAL | | | Total | performed at [facility] [place];[address] | | LAB | | | | [address];[place] | | | | | | [address] | | | | + + + + + + | Albumin | 3.3 (L)Comment: Testing | 3.6 - 5.0 g/dL | EXTERNAL | | | | performed at [facility] [place];[address] | | LAB | | | | [address];[place] | | | | | | [address] | | | | + + + + + + | Globulin | 4.4Comment: Testing | 1.3 - 4.9 g/dL | EXTERNAL | | | | performed at [facility] [place];[address] | | LAB | | | | [address];[place] | | | | | | [address] | | | | + + + + + + | A/G Ratio | 0.7 (L)Comment: Testing | 1.0 - 2.4 | EXTERNAL | | | | performed at [facility] [place];[address] | | LAB | | | | [address];[place] | | | | | | [address] | | | | + + + + + + | Bilirubin | 0.3Comment: Testing | 0.1 - 1.5 mg/dL | EXTERNAL | | | Total | performed at [facility] [place];[address] | | LAB | | | | [address];[place] | | | | | | [address] | | | | + + + + + + | ALP, | 137 (H)Comment: Testing | 35 - 115 U/L | EXTERNAL | | | External | performed at [facility] [place];[address] | | LAB | | | | [address];[place] | | | | | | [address] | | | | + + + + + + | AST | 37Comment: Testing | 10 - 45 U/L | EXTERNAL | | | | performed at [facility] [place];[address] | | LAB | | | | [address];[place] | | | | | | [address] | | | | + + + + + + | ALT | 37Comment: Testing | 10 - 65 U/L | EXTERNAL | | | | performed at [facility] [place];[address] | | LAB | | | | [address];[place] | | | | | | [address] | | | | + + + [...] | | | | | | at [facility] [place];[address] [place] [address] | | | | | | [place] [address] | | | | + + [...]
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
--- OUTSIDE RECORDS SUMMARY | ~2019-10-02 | XMS | Encounter Summary ---
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 Dr. Chong was not available for the surgery, secondary to a sc litary commitment, and I did see the patient in follow-up. The patient was then admitted to the [facility] on 05/28/2015 for an elective right-sided [...] patient was transferred back to his usp, [facility] in [facility] on 06/03/2015 Past Medical History Diagnosis Date Alcohol abuse Frequent falls Drug abuse Seizures (HCC) Other chronic pain Depression Skin abscess Anemia Hemiparesis (HCC) Past Surgical History Procedure Laterality Date Craniotomy Right 10/11/2014 Procedure: CRANIOTOMY - FOR BLEED; Surgeon: Anthony Chong MD; Location: [facility] IN OR; Service: Neurosurgery; Laterality: Right; Craniectomy Right 10/11/2014 Procedure: CRANIECTOMY; Surgeon: Anthony Chong MD; Location: [facility]; Ser vice: Neurosurgery; Laterality: Right; Cranial flap replacement Right 05/28/2015 Procedure: CRANIAL - FLAP REPLACEMENT; Surgeon: Livier Betancur MD; Location: [facility] OR; Service: Neurosurgery; Laterality: Right; Cranioplasty for cranial defect Right 05/29/2015 Procedure: CRANIOPLASTY; Surgeon: Livier Betancur MD; Location: [facility]; Service: Neurosurgery; Laterality: Right; Allergies Allergen [...] discharged to his usp, the [facility] in [facility]. The patient was asked to return to the clinic in 2 weeks for removal of the right-sided sca lp diamond. Disposition: [facility] facility Condition: Stable Code Status: Prior No discharge procedures on file. 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 You may get the following medications from [...] Josseline Mera RN Service: (none) Author Type: Extract Operator Filed: 06/03/15 9735 Date of Service: 06/03/151406 Status: Signed Commercial Finance Manager: Josseline Mera RN (Extract Operator) Disposition: [facility] Transportation: D Map through [employer]. All orders, signed AVS, and prescriptions have been faxed All DC paperwork completed Patient and family in agreement with discharge plan Josseline Mera onver alem Transaction, Provider Unknown - 06/03/2015 12:21 PM PDT Nurse Progress Note by Shannon Nguyen RN at 06/03/15 1221 Author: Shannon Nguyen RN Service: (none) Author Type: Registered Nurse Filed: 06/03/15 1224 Date of Service: 06/03/15 1221 Status: Signed Commercial Finance Manager: Shannon Nguyen RN (Registered Nurse) Pt discharged back to [facility] in [place]. Paperwork previously faxed. IV removed, belon gings with transport, talha in place. Left message for mother, notifying her of D/C. No c oncerns. SHANNON Nguyen RN onver alem Transaction, Provider Unknown - 06/03/2015 11:14 AM PDT Therapy Progress Note by Yazan Main PTA at 06/03/15 1114 Author: Yazan Main PTA Service: (none) Author Type: Activities Counselor Filed: 06/03/15 1122 Date of Service: 06/03/15 1114 Status: Signed Commercial Finance Manager: Yazan Main PTA (Activities Counselor) 06/03/15 1114 PT Last Visit PT Received [...] Alternating;Decreased robina;Scissoring;Ataxic;Narrow base Assistive Device Other (Comment) (EPIC AMBULATORY ANALYST) Activity Tolerance Activity Tolerance Patient limited by fatigue Plan Treatment/Interventions Continue per Primary PT POC Progress Progressing toward goals Recommendation Recommendations SNF PT recommendations were discussed and verified with supervising PT. Juhi Abel MA, CCC-GREASE MAKER HEAD - 06/03/2015 9:07 AM PDTFormatting of this note might be different fr om the original. Therapy Progress Note by Juhi Gregory MA CCC-GREASE MAKER HEAD at 06/03/15 09 Author: Juhi Gregory MA CCC-GREASE MAKER HEAD Service: (none) Author Type: Speech and Business Writer ologist Filed: 06/03/15906 Date of Service: 06/03/15906 Status: Signed Commercial Finance Manager: Juhi Gregory MA CCC-GREASE MAKER HEAD (Speech and Language Pathologist) 06/03/15 0850 Swallowing Assessment Eval Swallowing Treatment Yes Thin Presentation Cup Oral Phase Thin WFL Pharyngeal Phase Cough - delayed Scissors Presentation Cup Oral WFL Pharyngeal Phase Delayed swallow initiated Puree Presentation Spoon Oral Phase WFL Pharyngeal Delayed Swallow Recommendations Liquids Consistency Recommendations Scissors thick Diet Consistency Recommendation Pureed Recommendations Dysphagia treatment;Feeding assist;Set up with meals;Check on patients freq uently throught out meals Risk for Aspiration Moderate Compensatory Swallowing Strategies Upright as possible for all oral intake;Remain upright f or 30 minutes after meals;Slow rate presentation;Small bites/sips;Eat/feed slowly Recommended Form of Meds Meds floated in puree Summary pt eating breakfast with RN in room when GREASE MAKER HEAD entered. pt with delayed swallow but no [...] Josseline Mera RN Service: (none) Author Type: Extract Operator Filed: 06/03/15907 Date of Service: 06/03/15906 Status: Signed Commercial Finance Manager: Josseline Mera RN (Extract Operator) Gladis Regan will accept Krueger back when appropriate. Paperwork on front of chart f or MD signature. Ken Rivera MD - 06/02/2015 10:55 AM PDT Progress Notes by Ken Foster MD at 06/02/15 105 Author: Ken Foster MD Service: Neurosurgery Author Type: Physician Filed: 06/02/15 1057 Date of Service: 06/02/151054 Status: Signed Commercial Finance Manager: Ken Foster MD (Physician) Subjective: POD#4 No [...] Therapy Progress Note by Mere Hardy MA CCC-GREASE MAKER HEAD at 06/01/151625 Author: Mere Hardy MA CCC-GREASE MAKER HEAD Service: (none) Author Type: Speech and Language Patholo gist Filed: 06/01/151625 Date of Service: 06/01/151625 Status: Signed Commercial Finance Manager: Mere Hardy MA CCC-GREASE MAKER HEAD (Speech and Language Pathologist) 06/01/15 160 Swallowing [...] upon palpation;Cou gh - delayed;Spontaneous multiple swallow Scissors Presentation Cup;Self Fed Oral WFL Pharyngeal Phase No overt signs or symptoms of aspiration;Delayed swallow initiated;Decreas ed laryngeal elevation upon palpation Puree Presentation Self Fed;Spoon Oral Phase WFL Pharyngeal No overt signs or symptoms of aspiration;Delayed Swallow Dysphagia Mechanically Altered Presentation Spoon;Self Fed Oral Phase Prolonged mastication Pharyngeal Phase Cough - Immediate;Delayed Swallow;Decreased Laryngeal Elevation Recommendations Liquids Consistency Recommendations Scissors thick Diet Consistency Recommendation Pureed Recommendations Dysphagia [...] monitoring;Patient/Family education; Assessment for upgrade Dysphagia Goals Water Resource Engineering Specialist Goals Safe/efficient oral intake Pt will have safe/efficient oral intake Scissors thick liquids;Dysphagia advanced diet;With max cues Short Term Goals Tolerate liquid consistency;Follow swallow precautions Pt will tolerate tolerate liquid consistency Scissors thick liquids;With max supervision;Goa l progressing Pt will follow swallow precautions With mod supervision;Goal progressing onver alem Transaction, Provider Unknown - 06/01/2015 12:40 PM PDT Progress Notes by Fede Bonner at 06/01/15 1240 Author: Fede Bonner Service: (none) Author Type: Filed: 06/01/15 1242 Date of Service: 06/01/151239 Status: Signed Commercial Finance Manager: Fede Bonner () Tony is from [place], but says he lives on the [facility]. Stated he has bee n in the [...] 06/01/15909 Date of Service: 06/01/15907 Status: Signed Commercial Finance Manager: Ken Foster MD (Physician) Subjective: POD#3 Transferred [...] could be returned to his care fac [facility] Wednesday or Wednesday. onversion Transact ion, Provider Unknown - 05/31/2015 12:04 PM PDTFormatting of this note might be different fr om the original. Progress Notes by Hany Templeton RD at 05/31/15 1204 Author: Hany Templeton RD Service: (none) Author Type: Registered Dietitian Filed: 05/31/15 120 Date of Service: 05/31/151203 Status: Signed Commercial Finance Manager: Hany Templeton RD (Registered Dietitian) 05/31/15 4782 Subjective Timepoint Admit (Triggers for dysphagia. ) Pt c/o Pt admitted for seizures, has hx of craniectiomy, is POD # 2R [id number] cranioplasty, POD # 1 R bone flap [...] dysphagia pureed, NT liquid, house diet per GREASE MAKER HEAD recommend ations. Add magic cups to meal [...] 1929 Date of Service: 05/31/151115 Status: Signed Commercial Finance Manager: Ki Martinez PT (Physical Therapist) 05/31/15 1116 [...] 1306 Date of Service: 05/31/15917 Status: Signed Commercial Finance Manager: Livier Betancur MD (Physician) POD#2 The patient [...] could be returned to his care fac [facility]. onnarcisa Transactio n, Provider Unknown - 05/31/2015 8:55 AM PDT Case Management by TABITHA Sidhu at 05/31/15 0855 Author: TABITHA Sidhu Service: (none) Author Type: Cotton Grower Filed: 05/31/15 1438 Date of Service: 05/31/1555 Status: Addendum Commercial Finance Manager: TABITHA Sidhu (Cotton Grower) Related Notes: Original Note by TABITHA Sidhu (Cotton Grower) filed at 05/31/15 0856 Placed t/c to Dianna at [facility]. Left message requesting a return call as i have no t heard from her since I faxed the referral. Await her return call. Addendum: 1400: Received return call from Debora at [facility]. Pt is accepted for a dmit when he is medically stable. Tabitha Cooley PT - 05/30/2015 3:49 PM PDTFormatting of this note might be different from th e original. Therapy Progress Note by Keiry Weiss PT at 05/30/15 0409 Author: Keiry Weiss PT Service: (none) Author Type: Physical Therapist Filed: 05/30/15 180 Date of Service: 05/30/151548 Status: Signed Commercial Finance Manager: Keiry Weiss, PT (Physical Therapist) 05/30/15 1549 [...] Pt had been most recently staying at [facility] in [place]. Pt was getti ng agitated with questions and not wanting to respond. Prior Function Level of Mcdaniels Assist with functional mobility;Assist with ADLs;Assist with IADLs (while at [facility], unclear functional mobility prior) Lives With Alone Receives Help From Family (silblings) Comments difficult to ascertain- pt reported spending most of his time in w/c at [facility] an d needing help with [...] Barriers to Discharge Physical Deficits Impacting Functional Mcdaniels;Self-care Deficit s Impacting Functional Mcdaniels 05/30/15 1549 PT Last Visit PT Received [...] Barriers to Discharge Physical Deficits Impacting Functional Mcdaniels;Self-care Deficit s Impacting Functional Mcdaniels onversion Transa ction, Provider Unknown - 05/30/2015 3:10 PM PDT Therapy Progress Note by Carmela Wilcox MS CCC-GREASE MAKER HEAD at 05/30/15 7530 Author: Carmela Wilcox MS CCC-GREASE MAKER HEAD Service: (none) Author Type: Speech and Business Writer ologist Filed: 05/30/15 1952 Date of Service: 09/10/15 1510 Status: Signed Commercial Finance Manager: Carmela Wilcox MS CCC-GREASE MAKER HEAD (Speech and Language Pathologist) 05/30/15 1500 Swallowing [...] Pharyngeal Phase Delayed swallow initiated;Cough - delayed Scissors Presentation Cup;Self Fed Oral Increased Anterior to [...] Cough - Delayed Recommendations Liquids Consistency Recommendations Scissors thick;Ice chips for oral comfort Diet Consistency [...] education;Assessment for upgr khadijah;Swallow strategies Dysphagia Goals [facility] Goals Safe/efficient oral intake Pt will have safe/efficient oral intake Scissors thick liquids;Dysphagia advanced diet;With max cues Short Term Goals Tolerate liquid consistency;Follow swallow precautions Pt will tolerate tolerate liquid consistency Scissors thick liquids;With max supervision Pt will follow swallow precautions With mod supervision;New/revised goal RDStLivier bustamante - 05/30/2015 8:48 AM PDTFormatting of this note might be different from the or iginal. Progress Notes by Livier Betancur MD at 05/30/15847 Author: Livier Betancur MD Service: Neurosurgery Author Type: Physician Filed: 05/30/15 1230 Date of Service: 05/30/15847 Status: Signed Commercial Finance Manager: Livier Betancur MD (Physician) POD#1 The patient [...] Mendoza at 05/30/15639 Author: JENNIFER Mendoza Service: Technical Sales Representative Author Type: Nurse Practitioner Filed: 05/30/15 1123 Date of Service: 05/30/15639 Status: Signed Commercial Finance Manager: JENNIFER Mendoza (Nurse Practitioner) Merged With [facility] Service: Technical Sales Representative Progress Note [facility] 54 [facility] [...] 142 Date of Service: 05/29/151420 Status: Signed Commercial Finance Manager: Livier Betancur MD (Physician) ICU nurse states the patient seems more lethargic. I will plan a return to the OR now to e valuate the pressure present beneath the right-sided cranial flap. onversion Transactio n, Provider Unknown - 05/29/2015 1:24 PM PDT Case Management by TABITHA Sidhu at 05/29/15 1321 Author: TABITHA Sidhu Service: (none) Author Type: Cotton Grower Filed: 05/29/15 1320 Date of Service: 05/29/151323 Status: Signed Commercial Finance Manager: TABITHA Sidhu (Cotton Grower) 05/29/15 1323 Discharge Planning Evaluation Admitting Diagnosis Right jlqbre-[id number] cranioplasty Readmission Other (comment) Living Arrangements Other (Comment) (halfway) Support Systems Parent Type of Residence group home facility ([facility]) Independent with ADL's No-comment Independent with Mobility No-comment (require w/c) Home Care Services No Mental Status Other (comment) (just starting to follow commands after surgery) Prior functional status Previously at [facility] and [facility]. Richelle is at [facility] and mother states that plan is to retun there. Anticipated Discharge Plan Plan communicated to patient/family Yes Resources Financial concerns No Transportation issues No Patient/Family concerns No Prescription Plan Yes Anticipated Disposition Facility Type group home facility Senior Care Facility Other (comment) ([facility]) Met with: pt's mother Teressa who tells me she is the healthcare decision-maker for pt and discussed discharge planning, Pt is a 54 y.o., male s/p cranioplasty. Pt has been at [facility] for the last 2-3 months per mother. Plan is for pt to live with his mother donal ut he requires significant care at this time. E-faxed referral to Dianna at [facility]. Patient's PCP is: [facility] Patient's insurance:[place] Medicaid - [employer] Coverage concerns: Medication coverage/concerns: Nahun'eliseo Bedside Delivery: Community resources utilized / needed: Assistance in transportation: may need ambulance transfer back to [place] Identification of any specific education / training: Barriers to Discharge / Alternative housing needed: Anticipated DCP: Back to [facility]. Referral faxed to [facility]. HAYES STEEN Livier Briseno - 05/29/2015 12:37 PM PDTFormatting of this note might be different from the or iginal. Progress Notes by Livier Betancur MD at 05/29/15 3109 Author: Livier Betancur MD Service: Neurosurgery Author Type: Physician Filed: 05/31/15 4028 Date of Service: 05/29/15 3455 Status: Addendum Commercial Finance Manager: Livier Betancur MD (Physician) Related Notes: Original Note by Livier Betancur MD (Physician) filed at 05/29/15 5308 EXAM: Patient does nod his head yes [...] Galan Service: Wound/Ostomy Care Author Type: Nurse Custom Decorating Consultant Filed: 05/29/15 1220 Date of Service: 05/29/151218 Status: Signed Commercial Finance Manager: Pelon Galan (Nurse Custom Decorating Consultant) Patient seen today for low Bon score. [...] 05/29/151209 Date of Service: 05/29/151209 Status: Signed Commercial Finance Manager: Debra Fitzpatrick RPH (Pharmacist) Renal Dosing Monitoring: Tony cMguire 54 y.o. male Pharmacy dosing for renal function per Dr. Rios SCr = 0.62, est CrCl = 139 Plan per protocol: Based on current levels, medications do not require ajdustments for renal function. Pharmacy will continue monitoring patient for appropriate dosing per renal function. 05/29/2015 12:07 PM Pharmacist: Debra Fitzpatrick >> JOYCE HERNANDEZ 05/28/2015 11:20 Clinical Pharmacy Note: Renal Monitoring Tony Mcguire 54 y.o. male Ht Readings from Last 1 Encounters: 05/28/15 1.778 m (5' 10") Wt Readings from Last 1 Encounters: 05/28/15 78.9 kg (173 lb 15.1 oz) CREATININE Date Value Ref Range Status 11/26/2014 0.62* 0.70 - 1.30 mg/dL Final Comment: Testing performed at [facility], [address] [place] [address] Creatinine clearance cannot be calculated (Patient's most [...] 1003 Date of Service: 05/29/1554 Status: Signed Commercial Finance Manager: Livier Betancur MD (Physician) POD#1 The patient [...] 05/28/151119 Date of Service: 05/28/151119 Status: Signed Commercial Finance Manager: Joyce Hernandez RPH (Pharmacist) Clinical Pharmacy Note: Renal Monitoring Tony Mcguire 54 y.o. male Ht Readings from Last 1 Encounters: 05/28/15 1.778 m (5' 10") Wt Readings from Last 1 Encounters: 05/28/15 78.9 kg (173 lb 15.1 oz) CREATININE Date Value Ref Range Status 11/26/2014 0.62* 0.70 - 1.30 mg/dL Final Comment: Testing performed at [facility], [address] [place] [address] Creatinine clearance cannot be calculated (Patient's most recent sCr result is older than t he maximum 3 days allowed.) Pharmacy dosing for renal function per Dr. Rios. Currently, there are no medications needing to be adjusted. Pharmacy will continue to monit or for changes in medication orders and in renal function and adjust accordingly. Joyce Hernandez [facility] 05/28/2015 11:20 AM onver alem Transaction, Provider Unknown - 05/28/2015 11:17 AM PDT Nurse Progress Note by Anna Gates RN at 05/28/15 1117 Author: Anna Gates RN Service: (none) Author Type: Registered Nurse Filed: 05/28/15 1118 Date of Service: 05/28/15 1117 Status: Signed Commercial Finance Manager: Anna Gates RN (Registered Nurse) Report from Shayna at [facility] states that patient has been NPO [...] Date of Service: 05/28/15 1041 Status: Signed Commercial Finance Manager: Anna Gates RN (Registered Nurse) Lamine from the lab at [facility] to fax MRSA PCR results and U/A [...] | | | | | YAHIR RODRIGUE[address] [facility] [address] | | | | | | [place] [address] | | | | | | [phone] | | | | | | | [...] EXTERNAL | | | | performed at [facility];[address] | mmol/L | LAB | | | | [address];[place], [place] | | | | | | [address] | | | | + + + [...] EXTERNAL | | | | performed at [facility];[address] | | LAB | | | | [address];[place], [place] | | | | | | [address] | | | | + + + [...] | | | | | [place] [address] | | | | + + + + + + | RED CELL | 3.20 (L)Comment: Testing | 4.20 - 5.70 | EXTERNAL | | | COUNT | performed at [facility], [address] | M/uL | LAB | | | | [address], | | | | | | [place] [address] | | | | + + + + + + | Hgb | 8.9 (L)Comment: Testing | 13.2 - 17.0 | EXTERNAL | | | | performed at [facility], [address] | g/dL | LAB | | | | [address], | | | | | | [place] [address] | | | | + + + + + + | Hematocrit, | 27.2 (L)Comment: Testing | 39.0 - 50.0 % | EXTERNAL | | | POC | performed at [facility], [address] | | LAB | | | | [address], | | | | | | [place] [address] | | | | + + + + + + | MCV | 85.1Comment: Testing | 80.0 - 100.0 fl | EXTERNAL | | | | performed at [facility], [address] | | LAB | | | | [address], | | | | | | [place] [address] | | | | + + + + + + | MCH | 27.7Comment: Testing | 27.0 - 34.0 pg | EXTERNAL | | | | performed at [facility], [address] | | LAB | | | | [address], | | | | | | [place] [address] | | | | + + + + + + | MCHC | 32.6Comment: Testing | 32.0 - 35.5 | EXTERNAL | | | | performed at [facility], [address] | g/dL | LAB | | | | [address], | | | | | | [place] [address] | | | | + + + + + + | RDW-CV | 49.0Comment: Testing | 37 - 53 fl | EXTERNAL | | | | performed at [facility], [address] | | LAB | | | | [address], | | | | | | [place] [address] | | | | + + + + + + | Platelet | 103 (L)Comment: Testing | 150 - 400 K/uL | EXTERNAL | | | Count | performed at [facility], [address] | | LAB | | | Plasma | [address], | | | | | | [place] [address] | | | | + + + + + + | MPV | 9.1Comment: Testing | fl | EXTERNAL | | | | performed at [facility], [address] | | LAB | | | | [address], | | | | | | [place] [address] | | | | + + + + + + | Differentia | AUTOMATEDComment: | | EXTERNAL | | | l Type | Testing performed at | | LAB | | | | [facility], [address] | | | | | | [place] | | | | | | [address] | | | | + + + + + + | % Segmented | 70.80Comment: Testing | % | EXTERNAL | | | | performed at [facility], [address] | | LAB | | | Neutrophils | [address], | | | | | | [place] [address] | | | | + + + + + + | % | 19.56Comment: Testing | % | EXTERNAL | | | Lymphocytes | performed at [facility], [address] | | LAB | | | | [address], | | | | | | [place] [address] | | | | + + + + + + | % Monocytes | 8.15Comment: Testing | % | EXTERNAL | | | | performed at [facility], [address] | | LAB | | | | [address], | | | | | | [place] [address] | | | | + + + + + + | % | 1.12Comment: Testing | % | EXTERNAL | | | Eosinophils | performed at [facility], [address] | | LAB | | | | [address], | | | | | | [place] [address] | | | | + + + + + + | % Basophils | 0.37Comment: Testing | % | EXTERNAL | | | | performed at [facility], [address] | | LAB | | | | [address], | | | | | | [place] [address] | | | | + + + + + + | Absolute | 4.40Comment: Testing | 1.90 - 7.40 | EXTERNAL | | | Segmented | performed at [facility], [address] | K/uL | LAB | | | Neutrophils | [address], | | | | | | [place] [address] | | | | + + + + + + | Absolute | 1.22Comment: Testing | 1.00 - 3.90 | EXTERNAL | | | Lymphocytes | performed at [facility], [address] | K/uL | LAB | | | | [address], | | | | | | [place] [address] | | | | + + + + + + | Absolute | 0.51Comment: Testing | 0.00 - 0.80 | EXTERNAL | | | Monocytes | performed at [facility], [address] | K/uL | LAB | | | | [address], | | | | | | [place] [address] | | | | + + + + + + | Absolute | 0.07Comment: Testing | 0.00 - 0.50 | EXTERNAL | | | Eosinophils | performed at [facility], [address] | K/uL | LAB | | | | [address], | | | | | | [place] [address] | | | | + + + + + + | Absolute | 0.02Comment: Testing | 0.00 - 0.10 | EXTERNAL | | | Basophils | performed at [facility], [address] | K/uL | LAB | | | | [address], | | | | | | [place] [address] | | | | + + + [...] EXTERNAL | | | | performed at [facility], [address] | | LAB | | | | [address], | | | | | | [place] [address] | | | | + + + [...] EXTERNAL | | | | performed at [facility] [facility], [address] | | LAB | | | | [address], | | | | | | [place] [address] | | | | + + + [...] | | | | | [place] [address] | | | | + + + + + + | K | 3.8Comment: Testing | 3.5 - 4.9 | EXTERNAL | | | | performed at [facility], [address] | mmol/L | LAB | | | | [address], | | | | | | [place] [address] | | | | + + + + + + | Cl | 106Comment: Testing | 99 - 109 mmol/L | EXTERNAL | | | | performed at [facility], [address] | | LAB | | | | [address], | | | | | | [place] [address] | | | | + + + + + + | CO2 | 27Comment: Testing | 23 - 32 mmol/L | EXTERNAL | | | | performed at [facility], [address] | | LAB | | | | [address], | | | | | | [place] [address] | | | | + + + + + + | Anion Gap | 7Comment: Testing | 5 - 20 mmol/L | EXTERNAL | | | | performed at [facility], [address] | | LAB | | | | [address], | | | | | | [place] [address] | | | | + + + + + + | Glucose, | 99Comment: Testing | 65 - 99 mg/dL | EXTERNAL | | | Fasting | performed at [facility], [address] | | LAB | | | | [address], | | | | | | [place] [address] | | | | + + + + + + | BUN | 4 (L)Comment: Testing | 8 - 25 mg/dL | EXTERNAL | | | | performed at [facility], [address] | | LAB | | | | [address], | | | | | | [place] [address] | | | | + + + + + + | Creatinine | 0.48 (L)Comment: Testing | 0.70 - 1.30 | EXTERNAL | | | | performed at [facility], [address] | mg/dL | LAB | | | | [address], | | | | | | [place] [address] | | | | + + + + + + | BUN/Creatin | 8Comment: Testing | | EXTERNAL | | | ine Ratio | performed at [facility], [address] | | LAB | | | | [address], | | | | | | [place] [address] | | | | + + + + + + | Calcium | 8.3 (L)Comment: Testing | 8.5 - 10.5 | EXTERNAL | | | | performed at [facility], [address] | mg/dL | LAB | | | | [address], | | | | | | [place] [address] | | | | + + + [...] | | | | | | at [facility], [address] | | | | | | [address], | | | | | | [place] [address] | | | | + + + [...] EXTERNAL | | | | performed at [facility];[address] | mmol/L | LAB | | | | [address];[place] | | | | | | [address] | | | | + + + [...] EXTERNAL | | | | performed at [facility];[address] | | LAB | | | | [address];[place] | | | | | | [address] | | | | + + + [...] EXTERNAL | | | | performed at [facility] | | LAB | | | | [address];[place], [place] | | | | | | [address] | | | | + + + [...] drain | | | placement. 2. Improved mrakw-yt-svap midline shift. RADIA | | | Electronically signed by Joshua Rivera MD on May 30 2015 10:35AM | | | Referring Provider Line: [phone] ID: [id number] | | + + + [...] has improved. There is | | | feqsx-tm-wavb midline shift measuring at least 5 mm [...] seen. Intracranial pneumocephalus has improved. There is dbiej-dz-jbhb midline shift | | measuring at least [...] interval subdural drain placement.2. | | Improved ikvov-jc-hwax midline shift. RADIA Electronically signed by Joshua Rivera MD | | on May 30 2015 10:35AM Referring Provider Line: [phone] ID: [id number] | | | |Sinuses: Paranasal [...] molina bdural drain placement. | |2. Improved gkqxn-az-yzxb midline shift. | | | |RADIA | | | | Electronically signed by Joshua Rivera MD on May 30 2015 10:35AM Referring Provider Line: [phone] ID: [id number] | + + PTT (05/30/2015 2:59 AM PDT) + + + + + + | Component | Value | Ref Range | Performed | Pathologist | | | | | At | Signature | + + + + + + | aPTT, | 33 (H)Comment: Testing | 23 - 32 seconds | EXTERNAL | | | Patient | performed at [facility];[address] | | LAB | | | | [...] | | | | | performed at [facility];88 | | | | | | [facility];[place], [place] | | | | | | [address] | | | | + + + [...] EXTERNAL | | | | performed at [facility], [address] | K/uL | LAB | | | | [address], | | | | | | [place] [address] | | | | + + + + + + | RED CELL | 3.24 (L)Comment: Testing | 4.20 - 5.70 | EXTERNAL | | | COUNT | performed at [facility], [address] | M/uL | LAB | | | | [address], | | | | | | [place] [address] | | | | + + + + + + | Hgb | 8.8 (L)Comment: Testing | 13.2 - 17.0 | EXTERNAL | | | | performed at [facility], [address] | g/dL | LAB | | | | [address], | | | | | | [place] [address] | | | | + + + + + + | Hematocrit, | 27.5 (L)Comment: Testing | 39.0 - 50.0 % | EXTERNAL | | | POC | performed at [facility], [address] | | LAB | | | | [address], | | | | | | [place] [address] | | | | + + + + + + | MCV | 85.1Comment: Testing | 80.0 - 100.0 fl | EXTERNAL | | | | performed at [facility], [address] | | LAB | | | | [address], | | | | | | [place] [address] | | | | + + + + + + | MCH | 27.3Comment: Testing | 27.0 - 34.0 pg | EXTERNAL | | | | performed at [facility], [address] | | LAB | | | | [address], | | | | | | [place] [address] | | | | + + + + + + | MCHC | 32.1Comment: Testing | 32.0 - 35.5 | EXTERNAL | | | | performed at [facility], [address] | g/dL | LAB | | | | [address], | | | | | | [place] [address] | | | | + + + + + + | RDW-CV | 47.3Comment: Testing | 37 - 53 fl | EXTERNAL | | | | performed at [facility], [address] | | LAB | | | | [address], | | | | | | [place] [address] | | | | + + + + + + | Platelet | 117 (L)Comment: Testing | 150 - 400 K/uL | EXTERNAL | | | Count | performed at [facility], [address] | | LAB | | | Plasma | [address], | | | | | | [place] [address] | | | | + + + + + + | MPV | 9.7Comment: Testing | fl | EXTERNAL | | | | performed at [facility], [address] | | LAB | | | | [address], | | | | | | [place] [address] | | | | + + + + + + | Differentia | AUTOMATEDComment: | | EXTERNAL | | | l Type | Testing performed at | | LAB | | | | [facility], [address] | | | | | | [place] | | | | | | [address] | | | | + + + + + + | % Segmented | 72.39Comment: Testing | % | EXTERNAL | | | | performed at [facility], [address] | | LAB | | | Neutrophils | [address], | | | | | | [place] [address] | | | | + + + + + + | % | 16.63Comment: Testing | % | EXTERNAL | | | Lymphocytes | performed at [facility], [address] | | LAB | | | [address], | | | | | | [place] [address] | | | | + + + [...] | | | | | [place] [address] | | | | + + + + + + | % Basophils | 0.28Comment: Testing | % | EXTERNAL | | | | performed at [facility], [address] | | LAB | | | | [address], | | | | | | [place], [place] [address] | | | | + + + + + + | Absolute | 5.32Comment: Testing | 1.90 - 7.40 | EXTERNAL | | | Segmented | performed at [facility], [address] | K/uL | LAB | | | Neutrophils | [address], | | | | | | [place] [address] | | | | + + + + + + | Absolute | 1.22Comment: Testing | 1.00 - 3.90 | EXTERNAL | | | Lymphocytes | performed at [facility], [address] | K/uL | LAB | | | | [address], | | | | | | [place] [address] | | | | + + + + + + | Absolute | 0.76Comment: Testing | 0.00 - 0.80 | EXTERNAL | | | Monocytes | performed at [facility], [address] | K/uL | LAB | | | | [address], | | | | | | [place] [address] | | | | + + + + + + | Absolute | 0.02Comment: Testing | 0.00 - 0.50 | EXTERNAL | | | Eosinophils | performed at [facility], [address] | K/uL | LAB | | | | [address], | | | | | | [place] [address] | | | | + + + + + + | Absolute | 0.02Comment: Testing | 0.00 - 0.10 | EXTERNAL | | | Basophils | performed at [facility], [address] | K/uL | LAB | | | | [address], | | | | | | [place] [address] | | | | + + + [...] | | | | | [place] [address] | | | | + + + [...] EXTERNAL | | | | performed at [facility], [address] | | LAB | | | | [address], | | | | | | [place] [address] | | | | + + + [...] | | | | | [place] [address] | | | | + + + + + + | K | 3.7Comment: Testing | 3.5 - 4.9 | EXTERNAL | | | | performed at [facility], [address] | mmol/L | LAB | | | | [address], | | | | | | [place] [address] | | | | + + + + + + | Cl | 106Comment: Testing | 99 - 109 mmol/L | EXTERNAL | | | | performed at [facility], [address] | | LAB | | | | [address], | | | | | | [place] [address] | | | | + + + + + + | CO2 | 27Comment: Testing | 23 - 32 mmol/L | EXTERNAL | | | | performed at [facility], [address] | | LAB | | | | [address], | | | | | | [place] [address] | | | | + + + + + + | Anion Gap | 6Comment: Testing | 5 - 20 mmol/L | EXTERNAL | | | | performed at [facility], [address] | | LAB | | | | [address], | | | | | | [place] [address] | | | | + + + + + + | Glucose, | 106 (H)Comment: Testing | 65 - 99 mg/dL | EXTERNAL | | | Fasting | performed at [facility], [address] | | LAB | | | | [address], | | | | | | [place] [address] | | | | + + + + + + | BUN | 5 (L)Comment: Testing | 8 - 25 mg/dL | EXTERNAL | | | | performed at [facility], [address] | | LAB | | | [address], | | | | | | [place] [address] | | | | + + + + + + | Creatinine | 0.50 (L)Comment: Testing | 0.70 - 1.30 | EXTERNAL | | | | performed at [facility], [address] | mg/dL | LAB | | | | [address], | | | | | | [place] [address] | | | | + + + + + + | BUN/Creatin | 10Comment: Testing | | EXTERNAL | | | ine Ratio | performed at [facility], [address] | | LAB | | | | [address], | | | | | | [place] [address] | | | | + + + + + + | Calcium | 8.1 (L)Comment: Testing | 8.5 - 10.5 | EXTERNAL | | | | performed at [facility], [address] | mg/dL | LAB | | | | [facility], | | | | | | [place] [address] | | | | + + + [...] W | | | | | | [address], | | | | | | [place] [address] | | | | + + + [...] | | | Count | performed at [facility];[address] | | LAB | | | Plasma | [address];[place], [place] | | | | | | [address] | | | | + + + [...] | | | Patient | performed at [facility];[address] | | LAB | | | | [address];[place], [place] | | | | | | [address] | | | | + + + [...] | | | | | performed at [facility];[address] | | | | | | [address] [facility];[place] | | | | | | [address] | | | | + + + [...] EXTERNAL | | | | performed at [facility];[address] | | LAB | | | | [address];[place], [place] | | | | | | [address] | | | | + + + [...] | | | | | performed at [facility];[address] | | | | | | [address];[place], [place] | | | | | | [address] | | | | + + + [...] | | LAB | | | | [facility];[address] | | | | | [address];[place] [address] | | | | + + + + + + | PCO2 ART | 37Comment: Testing | 35 - 45 mmHg | EXTERNAL | | | | performed at [facility];[address] | | LAB | | | | [address];[place] | | | | | | [address] | | | | + + + + + + | PO2 ART | 208 (H)Comment: Testing | 80 - 105 mmHg | EXTERNAL | | | | performed at [facility];[address] | | LAB | | | | [address];[place] | | | | | | [address] | | | | + + + + + + | HCO3 ART | 26Comment: Testing | 22 - 26 mmol/L | EXTERNAL | | | | performed at [facility];[address] | | LAB | | | | [address];[place] | | | | | | [address] | | | | + + + + + + | POC | 27Comment: Testing | 23 - 27 mEq/L | EXTERNAL | | | APPEARANCE | performed at [facility];[address] | | LAB | | | UA | [address];[place] | | | | | | [address] | | | | + + + + + + | Base | 2Comment: Testing | 0 - 3 mEq/L | EXTERNAL | | | Excess, | performed at [facility];[address] | | LAB | | | Arterial | [address];[place] | | | | | | [address] | | | | + + + + + + | O2 SAT ART | 100 (H)Comment: Testing | 95 - 98 % | EXTERNAL | | | | performed at [facility];[address] | | LAB | | | | [address];[place] | | | | | | [address] | | | | + + + + + + | Sodium, POC | 134 (L)Comment: Testing | 135 - 145 mEq/L | EXTERNAL | | | | performed at [facility];[address] | | LAB | | | | [address];[place] | | | | | | [address] | | | | + + + + + + | Potassium, | 3.6Comment: Testing | 3.5 - 5.0 mEq/L | EXTERNAL | | | POC | performed at [facility];[address] | | LAB | | | | [address];[place] | | | | | | [address] | | | | + + + + + + | Ionized | 1.09 (L)Comment: Testing | 1.12 - 1.32 | EXTERNAL | | | Calcium, | performed at [facility];[address] | mmol/L | LAB | | | POC | [address];[place] | | | | | | [address] | | | | + + + + + + | Glucose, | 191 (H)Comment: Testing | 65 - 99 mg/dL | EXTERNAL | | | POC | performed at [facility];[address] | | LAB | | | | [address];[place] | | | | | | [address] | | | | + + + + + + | Hematocrit, | 35 (L)Comment: Testing | 40.0 - 50.0 % | EXTERNAL | | | POC | performed at [facility];[address] | | LAB | | | | [address];[place] | | | | | | [address] | | | | + + + + + + | Hemoglobin, | 11.9 (L)Comment: Testing | 13.7 - 16.7 | EXTERNAL | | | POC | performed at [facility];[address] | g/dL | LAB | | | | [address];[place] | | | | | | [address] | | | | + + + [...] EXTERNAL | | | | performed at [facility], [address] | K/uL | LAB | | | | [address], | | | | | | [place] [address] | | | | + + + + + + | RED CELL | 4.00 (L)Comment: Testing | 4.20 - 5.70 | EXTERNAL | | | COUNT | performed at [facility], [address] | M/uL | LAB | | | | [address], | | | | | | [place] [address] | | | | + + + + + + | Hgb | 11.0 (L)Comment: Testing | 13.2 - 17.0 | EXTERNAL | | | | performed at [facility], [address] | g/dL | LAB | | | | [address], | | | | | | [place] [address] | | | | + + + + + + | Hematocrit, | 33.7 (L)Comment: Testing | 39.0 - 50.0 % | EXTERNAL | | | POC | performed at [facility], [address] | | LAB | | | | [address], | | | | | | [place] [address] | | | | + + + + + + | MCV | 84.3Comment: Testing | 80.0 - 100.0 fl | EXTERNAL | | | | performed at [facility], [address] | | LAB | | | | [address], | | | | | | [place] [address] | | | | + + + + + + | MCH | 27.6Comment: Testing | 27.0 - 34.0 pg | EXTERNAL | | | | performed at [facility], [address] | | LAB | | | | [address], | | | | | | [place] [address] | | | | + + + + + + | MCHC | 32.8Comment: Testing | 32.0 - 35.5 | EXTERNAL | | | | performed at [facility], [address] | g/dL | LAB | | | | [address], | | | | | | [place] [address] | | | | + + + + + + | RDW-CV | 45.1Comment: Testing | 37 - 53 fl | EXTERNAL | | | | performed at [facility], [address] | | LAB | | | | [address], | | | | | | [place] [address] | | | | + + + + + + | Platelet | 135 (L)Comment: Testing | 150 - 400 K/uL | EXTERNAL | | | Count | performed at [facility], [address] | | LAB | | | Plasma | [address], | | | | | | [place] [address] | | | | + + + + + + | MPV | 9.2Comment: Testing | fl | EXTERNAL | | | | performed at [facility], [address] | | LAB | | | | [address], | | | | | | [place] [address] | | | | + + + + + + | Differentia | AUTOMATEDComment: | | EXTERNAL | | | l Type | Testing performed at | | LAB | | | | [facility], [address] | | | | | | [place] | | | | | | [address] | | | | + + + + + + | % Segmented | 75.95Comment: Testing | % | EXTERNAL | | | | performed at [facility], [address] | | LAB | | | Neutrophils | [address], | | | | | | [place] [address] | | | | + + + + + + | % | 14.93Comment: Testing | % | EXTERNAL | | | Lymphocytes | performed at [facility], [address] | | LAB | | | [address], | | | | | | [place] [address] | | | | + + + + + + | % Monocytes | 8.68Comment: Testing | % | EXTERNAL | | | | performed at [facility], [address] | | LAB | | | | [address], | | | | | | [place] [address] | | | | + + + + + + | % | 0.25Comment: Testing | % | EXTERNAL | | | Eosinophils | performed at [facility], [address] | | LAB | | | | [address], | | | | | | [place] [address] | | | | + + + + + + | % Basophils | 0.19Comment: Testing | % | EXTERNAL | | | | performed at [facility], [address] | | LAB | | | | [address], | | | | | | [place] [address] | | | | + + + + + + | Absolute | 6.90Comment: Testing | 1.90 - 7.40 | EXTERNAL | | | Segmented | performed at [facility], [address] | K/uL | LAB | | | Neutrophils | [address], | | | | | | [place] [address] | | | | + + + + + + | Absolute | 1.36Comment: Testing | 1.00 - 3.90 | EXTERNAL | | | Lymphocytes | performed at [facility], [address] | K/uL | LAB | | | | [address], | | | | | | [place] [address] | | | | + + + + + + | Absolute | 0.79Comment: Testing | 0.00 - 0.80 | EXTERNAL | | | Monocytes | performed at [facility], [address] | K/uL | LAB | | | | [address], | | | | | | [place] [address] | | | | + + + + + + | Absolute | 0.02Comment: Testing | 0.00 - 0.50 | EXTERNAL | | | Eosinophils | performed at [facility], [address] | K/uL | LAB | | | [address], | | | | | | [place] [address] | | | | + + + + + + | Absolute | 0.02Comment: Testing | 0.00 - 0.10 | EXTERNAL | | | Basophils | performed at [facility], [address] | K/uL | LAB | | | | [address], | | | | | | [place] [address] | | | | + + + [...] | | | | | [place] [address] | | | | + + + + + + | K | 4.1Comment: Testing | 3.5 - 4.9 | EXTERNAL | | | | performed at [facility], [address] | mmol/L | LAB | | | | [address], | | | | | | [place] [address] | | | | + + + + + + | Cl | 102Comment: Testing | 99 - 109 mmol/L | EXTERNAL | | | | performed at [facility], [address] | | LAB | | | | [address], | | | | | | [place] [address] | | | | + + + + + + | CO2 | 26Comment: Testing | 23 - 32 mmol/L | EXTERNAL | | | | performed at [facility], [address] | | LAB | | | | [address], | | | | | | [place] [address] | | | | + + + + + + | Anion Gap | 10Comment: Testing | 5 - 20 mmol/L | EXTERNAL | | | | performed at [facility], [address] | | LAB | | | | [address], | | | | | | [place] [address] | | | | + + + + + + | Glucose, | 109 (H)Comment: Testing | 65 - 99 mg/dL | EXTERNAL | | | Fasting | performed at [facility], [address] | | LAB | | | | [address], | | | | | | [place] [address] | | | | + + + + + + | BUN | 7 (L)Comment: Testing | 8 - 25 mg/dL | EXTERNAL | | | | performed at [facility], [address] | | LAB | | | | [address], | | | | | | [place] [address] | | | | + + + + + + | Creatinine | 0.62 (L)Comment: Testing | 0.70 - 1.30 | EXTERNAL | | | | performed at [facility], [address] | mg/dL | LAB | | | | [address], | | | | | | [place] [address] | | | | + + + + + + | BUN/Creatin | 11Comment: Testing | | EXTERNAL | | | ine Ratio | performed at [facility], [address] | | LAB | | | | [address], | | | | | | [place] [address] | | | | + + + + + + | Calcium | 8.8Comment: Testing | 8.5 - 10.5 | EXTERNAL | | | | performed at [facility], [address] | mg/dL | LAB | | | | [address], | | | | | | [place] [address] | | | | + + + [...] | | | | | | at [facility], [address] | | | | | | [address], | | | | | | [place] [address] | | | | + + + [...] EXTERNAL | | | | performed at [facility], [address] | | LAB | | | | [address], | | | | | | [place] [address] | | | | + + + + + + | Clarity | CLEARComment: Testing | | EXTERNAL | | | | performed at [facility], [address] | | LAB | | | | [address], | | | | | | [place], [place] [address] | | | | + + + + + + | Specific | 1.029Comment: Testing | 1.002 - 1.030 | EXTERNAL | | | Talmage | performed at [facility], [address] | | LAB | | | | [address], | | | | | | [place] [address] | | | | + + + [...] | | | | | [place] [address] | | | | + + + + + + | Urobilinoge | 1.0Comment: Testing | mg/dL | EXTERNAL | | | n, Urine | performed at [facility], [address] | | LAB | | | | [address], | | | | | | [place] [address] | | | | + + + + + + | Protein, | NEGATIVEComment: Testing | mg/dL | EXTERNAL | | | Urine | performed at [facility], [address] | | LAB | | | | [address], | | | | | | [place] [address] | | | | + + + + + + | pH, Urine | 5.0Comment: Testing | 5.0 - 8.0 | EXTERNAL | | | | performed at [facility], [address] | | LAB | | | | [address], | | | | | | [place] [address] | | | | + + + + + + | Blood, | NEGATIVEComment: Testing | | EXTERNAL | | | Urine | performed at [facility], [address] | | LAB | | | | [address], | | | | | | [place] [address] | | | | + + + + + + | Ketones | 40 (A)Comment: Testing | mg/dL | EXTERNAL | | | | performed at [facility], [address] | | LAB | | | | [address], | | | | | | [place] [address] | | | | + + + + + + | Bilirubin, | NEGATIVEComment: Testing | | EXTERNAL | | | Urine | performed at [facility], [address] | | LAB | | | | [address], | | | | | | [place] [address] | | | | + + + + + + | Glucose, | NEGATIVEComment: Testing | mg/dL | EXTERNAL | | | Urine | performed at [facility], [address] | | LAB | | | | [address], | | | | | | [place] [address] | | | | + + + [...] EXTERNAL LAB | | Testing performed at [facility];[address] [place] [address];[place] [address] MRSA PCR | | | NEGATIVE Testing performed at | | | [facility];[address] [place] [address];[place] [address] | | + + + + +---------+ [...] ISOLATED | | | Testing performed at [facility], [facility] | | | [place] [address] | | + + + + +---------+ [...] GROWTH | | | Testing performed at [facility], [address], | | | [place] [address] | | + + + + +---------+ [...] LAB | | | | Blvd;[place] [address] | | | | + + + + + + | Antibody | NEGATIVE | | EXTERNAL | | | Screen | | | LAB | | + + + + + + | Antibody | Testing performed at | | EXTERNAL | | | Screen | [facility] | | LAB | | | | Blvd;[place] [id number] | | | | + + + + + + | [facility] | [id number] | | EXTERNAL | | | | | | LAB | | + + + + + + | BB BAND | Testing performed at | | EXTERNAL | | | | [facility] | | LAB | | | | Blvd;[place] [id number] | | | | + + + [...]
--- OUTSIDE RECORDS SUMMARY | ~2019-10-02 | XMS | Encounter Summary ---
Demographics + + + | Address | [address] | | | [place] [address] | + + + | Home Phone [...] Author + + + | Author | [facility] | + + + | Organization | [facility] | + + + | Address | [...] Team Providers + +------+ + | Care Side Splitter Name | Role | Phone | + [...] | | | | Dyana De Paz [place], | [place], [place] | office) | | | | [place] [address] | [address] | | | | | [phone] | | | +--------+ + + + [...]
--- OUTSIDE RECORDS SUMMARY | ~2019-10-02 | XMS | Encounter Summary ---
Demographics + + + | Address | [address] | | | [place] [address] | + + + | Home Phone [...] Team Providers + +------+ + | Care Sales Service Promoter Name | Role | Phone | + +------+ + PCP | Unavailable | + +------+ + Encounter Details +--------+ + + + + | Date | Type | Department | Care Team | Description | +--------+ + + + + | 06/22/ | Hospital | [facility] | Sandip Hall MD | | | 2008 - | Encounter | [facility] | [address] | | | | | MED [address] [place] [address] S | [place] [address] | | | 06/23/ | | [address] | [phone] | | | 2008 | | [place], [place] | | | | | | [address] | Elizabeth Galan MD | | | | | [phone] | [address] | | | | | | [address] [place], | | | | | | [place] [address] | | | | | | [phone] | | +--------+ + + + + [...] as of this encounter Discharge Summaries Tobin Javier MD - 12/13/2011 4:00 AM PDTADMISSION DIAGNOSIS: Hepatic encephalopath y. DISCHARGE DIAGNOSIS: Hepatic encephalopathy. 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 We [...] and was discharged to return to his [facility] clinic, which he promises me he [...] this time until cleared by his primary critical care physician. I spent 46 minutes seeing patient, coordinating discharge, and attempting to certified rehabilitation counselor him into staying. _ TOBIN JAVIER MD D: Yoselyn Jun 23 16:37:54 2008 EST T: Yoselyn Jun 23 23:55:09 2008 EST Authenticated by Tobin Javier MD On 06/24/2009 06:22:14 AM NSARAH SCAN [facility] - 06/23/2009 12:00 AM PDT documented in this enc ounter Progress Notes ONSARAH SCAN [facility] - 06/24/2009 12:00 AM PDT NSARAH GORDON - 06/24/2009 12:00 AM PDT NSARAH SCAN RICKY - 06/24/2009 12:00 AM PDT documented in this encounter Plan of Treatment +--------+---------+ + + + | Date | Type | Specialty | Care Team | Description | +--------+---------+ + + + | 10/16/ | Office | Orthopedic Surgery | David Lux Volodymyr, | | | 2019 | Visit | | [place] [address] | | | | | | [facility] [address] | | | | | | [place] [address] | | | | | | [phone] | | | | | | | [...] IMPRESSION: No acute infiltrate or consolidation. | [facility] | | No apparent pneumothorax is seen. Dictated | | | By: Sagar Phelps M.D. 06/23/2009 10:33:10 AM | | + + + + + + | Narrative | Performed At | + + + | CHEST 1V PORTABLE DATE OF EXAM: 06/22/2009 INDICATION: | [facility] | | -weakness/fatigue FINDINGS: The heart and mediastinal contour | | | appear unremarkable. There is no acute infiltrate or consolidation. | | | There is no apparent pneumothorax or pleural effusion. The | | | lucency in the right lateral sulcus appears related to an artifact. | | | There is mild bony spurring in the AC joint. CRESTLINE EXAM NUMBER: | | | [id number] CHEST 1V [id number] | | + + + + + | Procedure Note | + + | Marlon Santamaria Conversion - 10/20/2011 9:09 PM PST CHEST 1V PORTABLE | | | | [...] spurring in the AC joint. | | CRESTLINE EXAM NUMBER: [id number] CHEST 1V [id number] | | IMPRESSION: | | IMPRESSION: No [...]
--- OUTSIDE RECORDS SUMMARY | ~2019-10-02 | XMS | Encounter Summary ---
Demographics + + + | Address | [address] | | | [place] [address] | + + + | Home Phone | | + + + | Preferred Language | Unknown | + + + | Marital Status | Single | + + + | Worship Affiliation | Unknown | + + + | Race | White | + + + | Ethnic Group | Not or | + + + Author + + + | Author | [facility] | + + + | Organization | [facility] | + + + | [...] Providers + +------+ + | Care Line Dancer Name | Role | Phone | + [...] | | | | [place] [address], | | | | | | [place] [address] | | | +--------+ + + + [...] | | Patient: EVANS ASTORGA Med Rec: [id number] Sex M Bdate: 1960 | | Date/Time Data | | Entered [facility] | | Anesth PostOp | | Surgery Date [id number] 02/19/03 10:45 | | Anesthesiologist BARRETT HELLER 02/19/03 10:45 | | | + + documented in this encounter Visit Diagnoses Not on filedocumented in this encounter"
--- OUTSIDE RECORDS SUMMARY | ~2019-10-02 | XMS | Encounter Summary ---
Demographics + + + | Address | [address] | | | [place] [address] | + + + | Home Phone [...] Team Providers + +------+ + | Care Primary Health Organisation Manager Name | Role | Phone | [...] | | | | | [facility] and | | | | | | Counseling [address] | | | | | | [address] [place], | | | | | | [place] [address] | | | | | | [phone] | | | | | | | [...] | | + +---------+ + + | [facility] DEPARTMENT OF | | | | [...] | | + +---------+ + + | [facility] DEPARTMENT OF | | | | [...] | | + +---------+ + + | [facility] DEPARTMENT OF | | | | [...]
--- OUTSIDE RECORDS SUMMARY | ~2019-10-02 | XMS | Encounter Summary ---
Demographics + + + | Address | [address] | | | [place] [address] | + + + | Home Phone [...] | + + +---------+ + | Teressa Edouardalebrletitia | ECON | Unknown | + | + + +---------+ + Care Team Providers + +------+ + | Care Food And Beverage Director Name | Role | Phone | + +------+ + PCP | Unavailable | + +------+ + Encounter Details +--------+ + + + + | Date | Type | Department | Care Team | Description | +--------+ + + + + | 10/11/ | Hospital | [facility] | Conversion | Headache(784.0) | | 2015 | Encounter | CONVERSION [address] | Transaction, | | | | | [address] | Provider Unknown | | | | | [place], [place] | [phone] | | | | | [address] | | | | | | [phone] | | | +--------+ + + + [...] | | | | | [place] [address] | | | | | | [phone] | | | | | | | [...]
--- OUTSIDE RECORDS SUMMARY | ~2019-10-02 | XMS | Encounter Summary ---
Demographics + + + | Address | [address] | | | [place] [address] | + + + | Home Phone | | + + + | Preferred Language | Unknown | + + + | Marital Status | | + + + | Religion Affiliation | Unknown | + + + | Race | Unknown | + + + | Ethnic Group | Unknown | + + + Author + + + | Author | [facility] | | | and Olegarioana | + + + | Organization | [facility] | | [...] Team Providers + +------+ + | Care Engine Oiler Name | Role | Phone | + +------+ + PCP | Unavailable | + +------+ + Encounter Details +--------+ + + + + | Date | Type | Department | Care Team | Description | +--------+ + + + + | 07/18/ | Hospital | [facility] | Conversion | Intracranial injury | | 2015 | Encounter | [facility] [address] | Transaction, | of other and | | | | [address] | Provider Unknown | unspecified nature, | | | | [place], [place] | | without mention of | | | | [address] | (Fax) | open intracranial | | | | [phone] | | wound, unspecified | | | [...] | | | | | | [facility] [address] | | | | | | [place] [address] | | | | | | [phone] | | | | | | | [...]
--- OUTSIDE RECORDS SUMMARY | ~2019-10-02 | XMS | Encounter Summary ---
Demographics + + + | Address | [address] | | | [place] [address] | + + + | Home Phone | | + + + | Preferred Language | Unknown | + + + | Marital Status | | + + + | Quaker Affiliation | Unknown | + + + | Race | Unknown | + + + | Ethnic Group | Unknown | + + + Author + + + | Author | [facility] | | | and Oleg[facility]ana | + + + | Organization | [facility] | | | and [...] Providers + +------+ + | Care Post Acute Care Registered Nurse Name | Role | Phone | + [...] | OP [address] | [place] [address] | | | | | [place] | [phone] | | | | | [address] | | | | | | [phone] | Ha Herrmann, | | | | | | SECURITY NURSE [address] | | | | | | [place] [address] | | | | | | [phone] | | | | | | | [...] +----+---+ + + | | 0 | [place] | | | | 9 | 43-degrees [...] +----+---+ + + | | 1 | [place] off | | | | 0 | [...] 20 gauge; other (see comments); | | Residential Worker | | | lost patency; 06/22/19; [address] [...] | | | | | | [facility] [address] | | | | | | [place] [address] | | | | | | [phone] | | | | | | | [...]
--- OUTSIDE RECORDS SUMMARY | ~2019-10-02 | XMS | Encounter Summary ---
Demographics + + + | Address | [address] | | | [place] [address] | + + + | Home Phone | | + + + | Preferred Language | Unknown | + + + | Marital Status | Single | + + + | Yarsani Affiliation | Unknown | + + + | Race | White | + + + | Ethnic Group | Not or | + + + Author + + + | Author | [facility] | + + + | Organization | [facility] | + + + | [...] Providers + +------+ + | Care Emergency Communications Officer Name | Role | Phone | [...] | | | | [address] [place], | [place], [place] | | | | | [place] [address] | [address] | | | | | [phone] | | | +--------+ + + + [...]
--- OUTSIDE RECORDS SUMMARY | ~2019-10-02 | XMS | Encounter Summary ---
Demographics + + + | Address | [address] | | | [place] [address] | + + + | Home Phone [...] Team Providers + +------+ + | Care Rn Faculty Name | Role | Phone | + [...] Ave | | | | | | [facility] [place] | Mailcode: | | | | | | [address] | [facility] | | | | | | Phone: | for Health | | | | | | [phone] | and Healing, | | | | | | Fax: | [address] | | | | | | [phone] | [place], [place] | | | | | | | [address] | | | | | | | Phone: | | | | | | | [phone] | | | | | | | Fax: | | | | | | | [phone] | +--------+--------+ + + + + Encounter [...] | | [address] | Ave [place], [place] | (HCC) | | | | Mailcode: [facility] | [address] | | | | | [facility] | [phone] | | | | | and [address], | | | | | | [address] | | | | | | [place], [place] | | | | | | [address] | | | | | | [phone] | | | +--------+---------+ + + + [...] | Reference Range Change effective 10/16/08 | [facility] | | [facility] | REGIONAL | | [place] [address] [facility] | LABORATORY | | [place] [address] | | + + + + + + + + | Performing | Address | City/State/Zipcode | Phone Number | | Organization | | | | + + + + + | [facility] | [address] | [place] [address] | | | LABORATORY | | | [...] Hospital, | | | | | | [place], [place]. | | | | + + + + + + + + | Specimen | + + | Blood - Blood | + + + + + | Narrative | Performed At | + + + | [facility] | [facility] | | [facility]erman[facility] [address] | REGIONAL | | [place] [address] | LABORATORY | + + + + + + + + | Performing | Address | City/State/Zipcode | Phone Number | | Organization | | | | + + + + + | [facility] | [address] | [place] [address] | | | LABORATORY | | | [...] by: | | | | | | [facility] | | | | | | Services [address] [place] [address] | | | | | | [place] | | | | | | [address] | | | | + + + + + + + + | Specimen | + + | Urine - Urine | + + + + + + + | Performing | Address | City/State/Zipcode | Phone Number | | Organization | | | | + + + + + | [facility] | [address] | [place], [place] | | | UNIV PTH - MANUAL | | [address] | | + + + + + [...] [facility] | [facility] | | [place] [address] | REGIONAL | | [place] [address] | LABORATORY | + + + + + + + + | Performing | Address | City/State/Zipcode | Phone Number | | Organization | | | | + + + + + | [facility] | [address] | [place] [address] | | | LABORATORY | | | [...] Way Lab) Munir | [facility] | | [place] [address] [facility] | REGIONAL | | [place] [address] | LABORATORY | + + + + + + + + | Performing | Address | City/State/Zipcode | Phone Number | | Organization | | | | + + + + + | [facility] | [address] [facility] [address] | [place] [address] | | | LABORATORY | | | [...] At | + + + | [facility] [facility] | [facility] | | [place] [address] [facility] | REGIONAL | | [place] [address] | LABORATORY | + + + + + + + + | Performing | Address | City/State/Zipcode | Phone Number | | Organization | | | | + + + + + | [facility] | [address] | [place] [address] | | | LABORATORY | | | [...] by | | | | | | [employer], | | | | | | | | | | | | [address] [facility] | | | | | | [facility] [address] | | | | | | [phone] | | | | | | | | | | | | [email or web address], | | | | | | Magui [...] [facility] | [address] | [place], [place] | | | UNIV PTH - INT[place] | | [address] | | + + + + + [...] At | + + + | [facility] | [facility] | | [facility] [place] [address] [address] [facility] | DEPARTMENT OF | | [place] [address] | PATHOLOGY | + + + + + + + + | Performing | Address | City/State/Zipcode | Phone Number | | Organization | | | | + + + + + | [facility] DEPARTMENT OF | [address] | [place] [address] | | | PATHOLOGY | [address] [...] + + + + + | [facility] DEPARTMENT OF | [address] | [place] [address] | | | PATHOLOGY | [address] | | | + + + + + INR (03/13/2010 9:50 AM PDT) + + + + + + | Component | Value | Ref Range | Performed | Pathologist | | | | | At | Signature | + + + + + + | INR | 1.19Comment: | 0.90 - 1.20 INR | [facility] | | | | INR Therapeutic ranges [...] [facility] | [address] [facility] | [place] [address] | | | PATHOLOGY | [address] [...] | | | DEPARTMENT | | | IRAQI | | | OF | | | [...] MENTAL HEALTH | [address] | [place] [address] | | | PATHOLOGY | [address] [...]
--- OUTSIDE RECORDS SUMMARY | ~2019-10-02 | XMS | Encounter Summary ---
Demographics + + + | Address | [address] | | | [place] [address] | + + + | Home Phone [...] Team Providers + +------+ + | Care Training Mgr Name | Role | Phone | + [...] | | | | [address] [place], | [place], [place] | | | | | [place] [address] | [address] | | | | | [phone] | | | +--------+ + + + [...]
--- OUTSIDE RECORDS SUMMARY | ~2019-10-02 | XMS | Encounter Summary ---
Demographics + + + | Address | [address] | | | [place] [address] | + + + | Home Phone [...] Author + + + | Author | [facility] | + + + | Organization | [facility] | + + + | Address [...] Team Providers + +------+ + | Care Adoption Services Manager Name | Role | Phone | [...] | | | | [address] [place], | [place], [place] | | | | | [place] [address] | [address] | | | | | [phone] | | | +--------+ + + + [...]
--- OUTSIDE RECORDS SUMMARY | ~2019-10-02 | XMS | Clinical Summary ---
Demographics + + + | Address | [address] | | | [place] [address] | + + + | Home Phone | | + + + | Preferred Language | Unknown | + + + | Marital Status | | + + + | Adventism Affiliation | Unknown | + + + | Race | Unknown | + + + | Ethnic Group | Unknown | + + + Author + + + | Author | [facility] ([facility] | | | 05-06-19) | + + + | Organization | [facility] (Historical as of | | | 05-06-19) | + + + | Address | Unknown | + + + | Phone | Unavailable | + + + Support + + + + + | Name | Relationship | Address | Phone | + + + + + | Jay Jay Fortune | ECON | [address] | | | | | [place] | | | | | [address] | | + + + + + | Teressa Fortune | ECON | [place] | | | | | [address] | | + + + + + Care Team Providers + +------+ + | Care Mycology Teacher Name | Role | Phone | [...] | | [employer] | | 01/18/ | [id number] | | [id number]: Qty: 1 on | | | | | 2016 | / | | 10/11/2014 by Arlette, | | | | | | /[id number] | | Anthony HENRIQUEZ MD | | | | | | 21 | + +------+--------+ +--------+--------+--------+ | Algrft Dura Durgn Mtrx 3x3 | | Right: | [employer] | | 08/27/ | ID-[id number] | | Bx5 - [id number]: Qty: | | Brain | NEUROSCIENC | | 2016 | 5 / | | 1 on 05/28/2015 by Earl, | | | FRANCK - INNE | | | /[id number] | | Gloria Baumann MD | | | | | | 52 | + +------+--------+ +--------+--------+--------+ | Mesh Grid Hcd 11x7.5 | | Right: | [employer] - | | | 015-20 | | - - | | Brain | MEDT | | | - / | | [id number]: Qty: 1 on | | | | | | / | | 05/28/2015 by Gloria Elliott | | | | | | | | L, MD | | | | | | | + +------+--------+ +--------+--------+--------+ | Plate Dbl Y 3h 5mm - | | Right: | [employer] - | | | 015-23 | | [id number]: Qty: 2 on | | Brain | MEDT | | | 7 / | | 05/28/2015 by Gloria Elliott | | | | | | /[id number] | | L, MD | | | | | | 98 | + +------+--------+ +--------+--------+--------+ | Screw S/Tap 1.6x4.0 - | | Right: | [employer] - | | | 001591 | | [id number]: Qty: 14 on | | Brain | MEDT | | | 0 / / | | 05/28/2015 by Gloria Elliott | | | | | | | | L, MD | | | | | | | + +------+--------+ +--------+--------+--------+ | Plate Dogbone 8mm - | | Right: | [employer] - | | | 015-04 | | [id number]: Qty: 1 on | | Brain | MEDT | | | 2 / | | 05/28/2015 by Gloria Elliott | | | | | | /[id number] | | MD Ibis | | | | | | 59 | + +------+--------+ +--------+--------+--------+ | Screw S/Tap 1.6x4.0 - | | | [employer] - | | | [id number] | | [id number]: Qty: 8 on | | | MEDT | | | 0 | | 05/29/2015 by Gloria Elliott | | | | | | /[id number] | | MD Ibis | | | | | | 40 / | + +------+--------+ +--------+--------+--------+ | Algrft Dura Durgn Mtrx 3x3 | | | [employer] | | 08/20/ | ID-[id number] | | Bx5 - [id number]: Qty: | | | NEUROSCIENC | | 2016 | 5 | | 1 on 05/29/2015 by Earl, | | | FRANCK - MALIKA | | | /[id number] | | Gloria Baumann MD | | | | | | 5 | | | | | | | | /[id number] | | | | | | | [...] +------+-------+ + | MEDICAID | MEDICA | [id number] | | | [address] | | | ID | | | | [place], [place] | | | [place] | | | | [address] | + +--------+ +------+-------+ + | [facility] | YELLOW | [id number] | | | | | PLANS | [...] | Self [birth year] Home: | [address] | | | al/Fam | | 1961 | [phone] | [place], | | | [place]yan | | | [address] | [place] [address] | + +--------+ +--------+ + +
--- OUTSIDE RECORDS SUMMARY | ~2019-10-02 | XMS | Encounter Summary ---
Demographics + + + | Address | [address] | | | [place] [address] | + + + | Home Phone [...] Team Providers + +------+ + | Care Telehealth Nurse Educator Name | Role | Phone | + +------+ + PCP | Unavailable | + +------+ + Encounter Details +--------+ + + + + | Date | Type | Department | Care Team | Description | +--------+ + + + + | 10/11/ | Hospital | [facility] | Conversion | Headache(784.0) | | 2015 | Encounter | CONVERSION [address] | Transaction, | | | | | [address] | Provider Unknown | | | | | [place], [place] | [phone] | | | | | [address] | | | | | | [phone] | | | +--------+ + + + [...] | | | | | [place] [address] | | | | | | [phone] | | | | | | | [...]
--- OUTSIDE RECORDS SUMMARY | ~2019-10-02 | XMS | Encounter Summary ---
Demographics + + + | Address | [address] | | | [place] [address] | + + + | Home Phone | | + + + | Preferred Language | Unknown | + + + | Marital Status | | + + + | Mu-Ism Affiliation | Unknown | + + + | Race | Unknown | + + + | Ethnic Group | Unknown | + + + Author + + + | Author | [facility] | | | and Olegarioana | + + + | Organization | [facility] | | | [...] Team Providers + +------+ + | Care Office Correspondent Name | Role | Phone | [...] + + + + | 08/09/ | [facility] | [facility] | Ramiro Bey, | Alcoholism (HCC) | | 2015 - | Encounter | [facility] | [address] | (Primary Dx); | | | | [address] | [place] | Hypokalemia; | | 08/14/ | | [place] [address] | [phone] | Pyelonephritis; | | 2014 | | [phone] | [phone] | Sepsis, due to | | | [...] | | | | | | coli) ([facility]) | +--------+ + + + + [...] West MD - 08/14/2015 10:35 AM PST [facility] DISCHARGE SUMMARY Pt. Name/Age/: Tony Ring Princess [...] 20 mg by mouth every morning. aka: [facility]SE: Please refer to the H&P [...] complete 14-day total course of therapy at [facility]. Vital signs, physical examination, and laboratory values were within appropriate limits at time of discharge. Patient discharged to SNF ([facility] in [place], [place]). Labs admission/discharge days: WBC 12.2 -> [...] He denies any other problems. Plans in [facility] for discharge back to [facility] today. Patient denies headache, fever, chills, [...] 2 weeks. Specialty: Family Medicine Contact information: [address] [place] [address] Condition: Patient being discharged with condition improved. Diet: Regular Activity: as tolerated, but up with assistance only (high fall risk) Greater than 30 minutes were spent on discharge and coordination of post-hospital care. Electronically signed by: Marco Antonio West MD, 08/14/2015 10:35 [facility] documented in thi s encounter Discharge Instructions Instructions Marco Antonio West MD - 08/14/2015Regular diet. Activity as tolerated. Up with assistance only (high fall risk). Follow-up with PCP Mason Oliveira, in 2 weeks. AttachmentsThe following attachments cannot be sent through Care Everywhere.PERIPHERALLY IN SERTED CENTRAL CATHETER (PICC), DISCHARGE INSTRUCTIONS FOR CARING FOR YOUR (NEPALESE)document ed in this encounter Medications at Time [...] Brunson MD - 08/13/2015 4:59 PM PST [facility] PROGRESS NOTE Patient: Tony Sánchez : 1960: Age: 54 y.o. MedRec: [id number] Admission date: 08/09/2015 Hospital day # : [...] CKTOTAL No results for input(s): PHART, PO2ART, CFA5RRS, MAP9CQW, BEART, V6DDMPKS in the last 168 h ours. Point [...] stable 8) Dispo - likely back to [facility] 08/14 if they can accept back Marco Antonio West MD 08/13/2015 16:59 [facility] asch, Nae Baumann MD - 08/12/2015 1:29 PM PST [facility] HOSPITALIST PROGRESS NOTE PATIENT NAME: Tony Sánchez AGE: 54 y.o. DATE OF SERVICE: 08/12/2015 SUBJECTIVE: No new concerns. Called [place], set up fax of results 08/11 final [...] this chart may have been created using [employer]ity[employer] voice recognition software. Occas ional wrong-word or "sound alike" substitutions may have occurred due to the inherent limita tions of voice recognition software. Please read chart carefully and recognize using context where these substitutions have occurred.Electronically signed by Nae Lala MD at 1:32 PM PSTRasch, Nae Baumann MD - 08/11/2015 4:25 PM PSTFormatting of this note mi ght be different from the original. [facility] HOSPITALIST PROGRESS NOTE PATIENT NAME: Tony Sánchez [...] call from [facility] with blood cx + gram neg josefina. aw aiting final for treatment plan and discharge planning DATE/TIME: 08/11/2015 16:25 SIGNED: Nae Lala MD Portions of this chart may have been created using [employer] voice recognition software. Occas ional wrong-word or "sound alike" substitutions may have occurred due to the inherent limita tions of voice recognition software. Please read chart carefully and recognize using context where these substitutions have occurred.Electronically signed by Nae Lala MD at 4:27 PM [facility] Nae Baumann MD - 08/10/2015 3:00 PM PSTFormatting of this note mi ght be different from the original. [facility] HOSPITALIST PROGRESS NOTE PATIENT NAME: Tony Sánchez [...] call from [facility] with blood cx + gram neg josefina. DATE/TIME: 08/10/2015 15:00 SIGNED: Nae Lala MD Portions of this chart may have been created using [employer] voice recognition software. Occas ional wrong-word or [...] [address] | | | | | | [place] [address] | | | | | | [phone] | | | | | | | [...] + | [facility] | [address] | [place] | [phone] | | [facility] | | [address] | | | - LABORATORY | | [...] ST. | [address] | [place], [place] | [phone] | | [facility] | | [address] | | | - LABORATORY | | [...] | mL/min/1.73m2 | [facility] | | | [place] | | | MEDICAL | | | [...] [address] | [place] | [phone] | | [facility] | | [address] | | | - LABORATORY | | [...] + | [facility] | [address] | [place] | [phone] | | [facility] | | [address] | | | - LABORATORY | | [...] [address] | [place] | [phone] | | [facility] | | [address] | | | - LABORATORY | | [...] [address] | [place] | [phone] | | [facility] | | [address] | | | - LABORATORY | | [...] [address] | [place] | [phone] | | [facility] | | [address] | | | - LABORATORY | | [...] [address] | [place] | [phone] | | [facility] | | [address] | | | - LABORATORY | | [...] + | [facility] | [address] | [place] | [phone] | | [facility] | | [address] | | | - LABORATORY | | [...] + | [facility] | [address] | [place] | [phone] | | [facility] | | [address] | | | - LABORATORY | | [...] mL/min/1.73m2 | [facility] | | | [place] | RATE,ESTIMATED | | MEDICAL | | | | mL/min/1.10r6Mhxt than | | CENTER - | | [...] [address] | [place] | [phone] | | [facility] | | [address] | | | - LABORATORY | | [...] + | [facility] | [address] | [place] | [phone] | | [facility] | | [address] | | | - LABORATORY | | [...] 0.51 (L) | 0.60 - 1.30 | [facility] | | | | | mg/dL | [facility] | | | | | | MEDICAL | | | | | | CENTER - | | | | | | LABORATORY | | + + + + + + | eGFR if not | >60Comment: GLOMERULAR | >=60 | [facility] | | | | FILTRATION | mL/min/1.73m2 | [facility] | | | [place] | RATE,ESTIMATED | | MEDICAL | | | | mL/min/1.85g3Lqtm than | | CENTER - | | [...] + | [facility] | [address] | [place] | [phone] | | [facility] | | [address] | | | - LABORATORY | | [...] [address] | [place] | [phone] | | [facility] | | [address] | | | - LABORATORY | | [...] | mL/min/1.73m2 | [facility] | | | [place] | RATE,ESTIMATED | | MEDICAL | | | | mL/min/1.42n1Ksin than | | CENTER - | | [...] [address] | [place] | [phone] | | [facility] | | [address] | | | - LABORATORY | | [...] [address] | [place] | [phone] | | [facility] | | [address] | | | - LABORATORY | | [...] mL/min/1.73m2 | [facility] | | | [place] | RATE,ESTIMATED | | MEDICAL | | | | mL/min/1.38t1Zpph than | | CENTER - | | [...] + | [facility] | [address] | [place] | [phone] | | [facility] | | [address] | | | - LABORATORY | | [...] ST. | [address] | [place], [place] | [phone] | | [facility] | | [address] | | | - LABORATORY | | [...] [address] | [place] | [phone] | | [facility] | | [address] | | | - LABORATORY | | [...] - 1.030 | [facility] | | | [place] | | | [facility] | | [...] + | [facility] | [address] | [place] | [phone] | | [facility] | | [address] | | | - LABORATORY | | [...] + | [facility] | [address] | [place] | [phone] | | [facility] | | [address] | | | - LABORATORY | | [...] | | | | | | [facility] | | | | | | MEDICAL [...] [address] | [place] | [phone] | | [facility] | | [address] | | | - LABORATORY | | [...] + | [facility] | [address] | [place] | [phone] | | [facility] | | [address] | | | - LABORATORY | | [...] 7 | 7 - 18 mg/dL | [facility] | | | | | | [facility] | | | | | | MEDICAL | | | | | | CENTER - | | | | | | LABORATORY | | + + + + + + | Creatinine | 0.59 (L) | 0.60 - 1.30 | [facility] | | | | | mg/dL | [facility] | | | | | | MEDICAL | | | | | | CENTER - | | | | | | LABORATORY | | + + + + + + | eGFR if not | >60Comment: GLOMERULAR | >=60 | [facility] | | | | FILTRATION | mL/min/1.73m2 | [facility] | | | [place] | RATE,ESTIMATED | | MEDICAL | | | | mL/min/1.17z8Nxkh than | | CENTER - | | [...] + | [facility] | [address] | [place] | [phone] | | [facility] | | [address] | | | - LABORATORY | | [...] ST. | [address] | [place] | [phone] | | [facility] | | [address] | | | - LABORATORY | | | | + + + + + documented in this encounter Visit Diagnoses + + | Diagnosis | + + | Sepsis due to Escherichia coli (E. coli) ([facility]) - Primary Other septicemia due to | | gram-negative organism | + + | Alcoholism ([facility]) Other and unspecified alcohol dependence, unspecified [...] | | | | | | use [place] 10/325 if ordered. If | | | [...]
--- OUTSIDE RECORDS SUMMARY | ~2019-10-02 | XMS | Encounter Summary ---
Demographics + + + | Address | [address] | | | [place] [address] | + + + | Home Phone | | + + + | Preferred Language | Unknown | + + + | Marital Status | | + + + | Jain Affiliation | Unknown | + + + | Race | Unknown | + + + | Ethnic Group | Unknown | + + + Author + + + | Author | [facility] | | | and Olegarioana | + + + | Organization | [facility] | | | [...] Providers + +------+ + | Care Security Guard Name | Role | Phone | + +------+ + PCP | Unavailable | + +------+ + Encounter Details +--------+ + + + + | Date | Type | Department | Care Team | Description | +--------+ + + + + | 11/22/ | Hospital | [facility] IP | Conversion | Headache(784.0) | | 2015 | Encounter | CONVERSION [address] | Transaction, | | | | | [address] | Provider Unknown | | | | | [place], [place] | | | | | | [address] | (Fax) | | | | | [phone] | | | +--------+ + + + [...] | | | | | [place] [address] | | | | | | [phone] | | | | | | | [...] Procedure Note | + + | Marlon Santaamria - 05/05/2019 12:20 AM PDT This is a non-reportable procedure | | without a radiologist report and isused for image storage only | + + documented in this encounter Visit Diagnoses + + | Diagnosis | + + | Headache(784.0) Headache | + + documented in this encounter"
--- OUTSIDE RECORDS SUMMARY | ~2019-10-02 | XMS | Encounter Summary ---
Demographics + + + | Address | [address] | | | [place] [address] | + + + | Home Phone | | + + + | Preferred Language | Unknown | + + + | Marital Status | | + + + | Hinduism Affiliation | Unknown | + + + | Race | Unknown | + + + | Ethnic Group | Unknown | + + + Author + + + | Author | [facility] | | | and Olegarioana | + + + | Organization | [facility] | | [...] Team Providers + +------+ + | Care Research Professor Of Biostatistics Name | Role | Phone | + +------+ + PCP | Unavailable | + +------+ + Encounter Details +--------+ + + + + | Date | Type | Department | Care Team | Description | +--------+ + + + + | 09/11/ | Hospital | [facility] | Rosa Isela Vásquez, | End Stage Renal | | 2008 - | Encounter | [facility] | [address] | Disease (HCC) | | | | CARE FLOOR [address] | [facility] [address], | | | 09/16/ | | [address] | [place] [address] | | | 2008 | | [place], [place] | [phone] | | | | | [address] | | | | | | [phone] | Maria Luisa Barry, | | | | | | [address] | | | | | | [place] [address] | | | | | | [phone] | | | | | | | [...] | | | | | | [facility] [address] | | | | | | [place] [address] | | | | | | [phone] | | | | | | | [...] Performed At | + + + | [facility] | | | [facility] [address] | | | , | | | [id number]/RADIOLOGY Patient Name: EVANS MCGUIRE Date of | | | : 1960 Medical Record: [id number] Account: | | | [id number] I/P/[facility] / Exam Date/Time: | | | 09/13/2009 [...] P A | | | 10:28 A /[facility]/[id number]/ cc: MD GIGI GARCIA | | | MD PEPITO | | + + + + + | Procedure Note | + + | Marlon Santamaria - 05/14/2019 10:02 PM PDT | | [facility] | | [facility] [address] | | , | | | | [id number]/RADIOLOGY | | | | Patient Name: EVANS MCGUIRE | | Date of : 1960 | | Medical Record: [id number] | | Account: [id number] | | I/P/JAZMÍN / | | | [...] | A | | A | | /[facility]/[id number]/ | | cc: JEFF AMANDA MD | | GIGI BEYER MD | + + XR Abdomen AP (09/12/2009 12:11 PM PST) + + | Specimen | + + | | + + + + + | Narrative | Performed At | + + + | [facility] | | | [facility] [address] | | | , | | | [id number]/RADIOLOGY Patient Name: EVANS MCGUIRE Date of | | | : 1960 Medical Record: [id number] Account: | | | [id number] I/P/[facility] / Exam Date/Time: | | | 09/12/2009 [...] | | | 09/12/2009 01:48 P P Christina/carlota/[id number]/ cc: | | | MD GIGI ARTHUR MD | | + + + + + | Procedure Note | + + | Marlon Santamaria - 05/14/2019 10:02 PM PDT | | [facility] | | [facility] [address] | | , | | | | [id number]/RADIOLOGY | | | | Patient Name: EVANS MCGUIRE | | Date of : 1960 | | Medical Record: [id number] | | Account: [id number] | | I/P/CCC / | | | [...] | P | | P | | BRIAN/carlota/[id number]/ | | cc: JOE CASILLAS MD | | GIGI BEYER MD | + + MRI Brain Wo MRA Head Wo (09/12/2009 11:17 AM PST) + + | Specimen | + + | | + + + + + | Narrative | Performed At | + + + | [facility] | | | [facility] [address] | | | , | | | [id number]/RADIOLOGY Patient Name: EVANS MCGUIRE Date of | | | : 1960 Medical Record: [id number] Account: | | | [id number] I/P/[facility] / Exam Date/Time: | | | 09/12/2009 [...] DT: | | | 09/12/2009 11:55 A [facility]/[id number]/ cc: JOE CASILLAS MD | | | MD GIGI TOSCANO MD | | + + + + + | Procedure Note | + + | Marlon Santamaria Conversion - 05/14/2019 10:02 PM PDT | | [facility] | | [facility] [address] | | , | | | | [id number]/RADIOLOGY | | | | Patient Name: EVANS MCGUIRE | | Date of : 1960 | | Medical Record: [id number] | | Account: [id number] | | I/P/[facility] | | | | | | Exam [...] | A | | A | | [facility]/[id number]/ | | cc: JOE CASILLAS MD | | MARIA LUISA BARRY MD | | GIGI BEYER MD | + + XR Chest 1 Vw (09/12/2009 5:40 AM PST) + + | Specimen | + + | | + + + + + | Narrative | Performed At | + + + | [facility] | | | [facility] [address] | | | , | | | [id number]/Diagnostic Outsourced Patient Name: EVANS MCGUIRE | | | Date of : 1960 Medical Record: [id number] Account: | | | [id number] I/P/[facility] / Exam Date/Time: | | | 09/12/2009 [...] A A | | | 09:19 A MM/ccv/[id number]/ cc: MD LYNNE TOSCANO | | | MD GIGI VILLEGAS MD | | + + + + + | Procedure Note | + + | Marlon Santamaria - 05/14/2019 10:02 PM PDT | | [facility] | | [facility] [address] | | , | | | | [id number]/Diagnostic Outsourced | | | | Patient Name: EVANS MCGUIRE | | Date of : 1960 | | Medical Record: [id number] | | Account: [id number] | | I/P/[facility] / | | | | | | [...] | A | | A | | MM/ccv/[id number]/ | | cc: MARIA LUISA BARRY MD | | LYNNE VILLEGAS MD | | GIGI BEYER MD | + + CT Head wo Contrast (09/12/2009 2:49 AM PST) + + | Specimen | + + | | + + + + + | Narrative | Performed At | + + + | [facility] | | | [facility] [address] | | | , | | | [id number]/Diagnostic Outsourced Patient Name: EVANS MCGUIRE | | | Date of : 1960 Medical Record: [id number] Account: | | | [id number] I/P/[facility] / Exam Date/Time: | | | 09/12/2009 [...] A A | | | 08:58 A RONALD/onel/[id number]/ cc: MD LYNNE TOSCANO | | | MD GIGI VILLEGAS MD | | + + + + + | Procedure Note | + + | Marlon Santamaria Conversion - 05/14/2019 10:02 PM PDT | | [facility] | | [facility] [address] | | , | | | | [id number]/Diagnostic Outsourced | | | | Patient Name: EVANS MCGUIRE | | Date of : 1960 | | Medical Record: [id number] | | Account: [id number] | | Caroline/Zara/JAZMÍN / | | | [...] | A | | A | | MM/onel/[id number]/ | | cc: MARIA LUISA BARRY MD | | LYNNE VILLEGAS MD | | GIGI BEYER MD | + + XR Chest 1 Vw (09/11/2009 8:25 PM PST) + + | Specimen | + + | | + + + + + | Narrative | Performed At | + + + | [facility] | | | [facility] [address] | | | , | | | [id number]/RADIOLOGY Patient Name: EVANS MCGUIRE Date of | | | : 1960 Medical Record: [id number] Account: | | | [id number] I/P/[facility] / Exam Date/Time: | | | 09/11/2009 [...] | | | 09/11/2009 11:01 P P DTB/nolvia/[id number]/ cc: | | | MD MARIA LUISA LITTLE MD [facility] | | | MD PEPITO | | + + + + + | Procedure Note | + + | Marlon Santamaria - 05/14/2019 10:02 PM PDT | | [facility] | | [facility] [address] | | , | | | | [id number]/RADIOLOGY | | | | Patient Name: EVANS MCGUIRE | | Date of : 1960 | | Medical Record: [id number] | | Account: [id number] | | I/P/[facility] / | | | | | | [...] | P | | P | | DTB/gf/[id number]/ | | cc: RONNY RAYA MD | | MARIA LUISA BARRY MD | | GIGI BEYER MD | + + documented in this encounter Visit Diagnoses + + | Diagnosis | + + | End stage renal disease (HCC) End stage renal disease | + + documented in this encounter"
--- OUTSIDE RECORDS SUMMARY | ~2019-10-02 | XMS | Encounter Summary ---
Demographics + + + | Address | [address] | | | [place] [address] | + + + | Home Phone | | + + + | Preferred Language | Unknown | + + + | Marital Status | | + + + | Mormonism Affiliation | Unknown | + + + | Race | Unknown | + + + | Ethnic Group | Unknown | + + + Author + + + | Author | [facility] | | | and Olegarioana | + + + | Organization | [facility] | | [...] Providers + +------+ + | Care Credit Union Examiner Name | Role | Phone | + +------+ + PCP | Unavailable | + +------+ + Encounter Details +--------+ + + + + | Date | Type | Department | Care Team | Description | +--------+ + + + + | 10/11/ | Hospital | [facility] | Chong, | Alcohol abuse; | | 2015 - | Encounter | [facility] [address] | Anthony HENRIQUEZ MD | Comatose ([facility]); | | | | [address] | [phone] | Frequent falls; | | 10/29/ | | [place], [place] | [place] [address] | Seizure ([facility]); | | 2014 | | [address] | [phone] | Alcohol withdrawal | | | | [phone] | | (HCC); Cerebral | | | | | | edema ([facility]); | | | | | | Subdural hematoma, | | | | | | post-traumatic, | | | | | | sequela ([facility]); | | | | | | Traumatic brain | | | | | | injury, closed, | | | | | | sequela ([facility]) | +--------+ + [...] 1127 Date of Service: 11/12/141123 Status: Signed Drywall Applicator: Cecilio Bravo MD (Physician) [facility]: Hospitalist Discharge Summary Date of [...] and multiple falls. Per ED report from [facility]: he was drinking earlier today at home and fell twice. He went to bed and then he was noted to be having what they thought was seizure activity and th ey could not wake him and called EMS. He was taken to the ED at [facility] in [place] then transferred to the ED here for [...] and multiple falls who was transferred from [facility] due to a fall, seizures . [...] placement to improve s trength and mobility. rn admissions are working on finding placement which may take few days, however if accepted then can be discharged for rehabilitation Events Overnight: 2/2 pt still somewhat confused, thought he was in [place]. He knew that he fell, but didn [...] scussion. CM routed updated medical notes to [facility] and [place]. PT recommending SNF. Lewis Christy spoke w/ Tyler at [facility] and Mary Beth at [place], efaxed updated medical information, bot h are [...] at this time; planned for placement in [place] once patient is off sitter for 48 hrs. Otherwise patient continues to interact appropriately at this time and no impulsiveness is shown. Patient is mostly in chair or in bed and sleeping. 10/27 pt is alert today, no complications. Continue with PT. Pt without sitter. Pending place ment still. 10/28 planning re-evaluation of patient's status for admission to [place]. Pt otherwise is not impulsive, mostly calm [...] Procedure: CRANIECTOMY; Surgeon: Anthony Chong MD; Location: [facility] OR; Ser vice: Neurosurgery; Laterality: Right; [...] on file. 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 You may get the following medications [...] 10/29/141122 Date of Service: 10/29/141122 Status: Signed Drywall Applicator: Cecilio Bravo MD (Physician) [facility]: Hospitalist Progress Note Hospital Day: LOS: 18 days Post-Op Day: 11 Days Post-Op SUBJECTIVE Patient Summary: Per ICU note: The patient is a 53 y.o. male with significant past medical history of chronic alcohol abus e and multiple falls. Per ED report from [facility]: he was drinking earlier today at home and fell twice. He went to bed and then he was noted to be having what they thought was seizure activity and th ey could not wake him and called EMS. He was taken to the ED at [facility] in [place] a nd then [...] and multiple falls who was transferred from [facility] due to a fall, seizures . [...] placement to improve s trength and mobility. rn admissions are working on finding placement which may take few days, however if accepted then can be discharged for rehabilitation Events Overnight: 2/2 pt still somewhat confused, thought he was in [place]. He knew that he fell, but didn [...] Oct 17 2014 7:38AM Referring Provider Line: [phone] ID: [id number] Ct Head Without Contrast 10/16/2014 [...] Oct 16 2014 6:08AM Referring Provider Line: [phone] E ID: [id number] PROBLEM LIST ASSESSMENT & [...] iscussion. CM routed updated medical notes to [facility] and [place]. PT recommending SNF. CM spoke w/ Tyler at [facility] and Mary Beth at [place], efaxed updated medical information, grace th are [...] at this time; planned for placement in [place] once patient is off sitter for 48 hrs. Otherwise patient continues to interact appropriately at this time and no impulsiveness is shown. Patient is mostly in chair or in bed and sleeping. 10/27 pt is alert today, no complications. Continue with PT. Pt without sitter. Pending plac ement still. 10/28 planning re-evaluation of patient's status for admission to [place]. Pt otherwise is not impulsive, mostly calm [...] this encounter Progress Notes Emilie Sutherland MS CCC-RISK INVESTIGATOR - 10/29/2014 3:00 PM PSTFormatting of this note might be diffe rent from the original. Therapy Progress Note by Emilie Sutherland MS CCC-RISK INVESTIGATOR at 10/29/14 1500 Author: Emilie Sutherland MS CCC-RISK INVESTIGATOR Service: (none) Author Type: Speech Therapist Filed: 10/29/14 1507 Date of Service: 10/29/14 1500 Status: Signed Drywall Applicator: Emilie Sutherland MS CCC-RISK INVESTIGATOR (Speech Therapist) 10/29/14 1500 RISK INVESTIGATOR Last Visit RISK INVESTIGATOR Received On 10/29/14 Requires RISK INVESTIGATOR Follow Up No pt is being discharged from the hospital shortly. onversion T ransaction, Provider Unknown - 10/29/2014 11:18 AM PSTFormatting of this note might be diffe rent from the original. Case Management by TABITHA Armstrong at 10/29/14 1118 Author: TABITHA Armstrong Service: (none) Author Type: Neon Electrician Filed: 10/29/14 1119 Date of Service: 10/29/14 1118 Status: Signed Drywall Applicator: TABITHA Armstrong (Neon Electrician) TELMA faxed MD's discharge orders to [facility] and arranged for a copy of pt's chart to be sent with pt. TELMA arranged for ambulance transport due to pt's confusion and risk of re-in jury of Subdural Hematoma/Craniotomy . CM notified pt & family of the discharge time. Pt had no other resource concerns. Discharge Plan: [facility] Jem NEILSW onver alem Transaction, Provider Unknown - 10/29/2014 10:35 AM PST Therapy Progress Note by ИВАН Elaine at 10/29/14 1035 Author: ИВАН Elaine Service: (none) Author Type: Massage Therapist Filed: 10/29/14 1035 Date of Service: 10/29/14 1035 Status: Signed Drywall Applicator: ИВАН Elaine (Massage Therapist) 10/29/14 1035 Massage Therapy Interventions Locations Back;Neck;Shoulder Massage Therapy Technique Effleurage;Petrissage;Trinidadian massage Response to treatment Decreased muscle tension onver alem Transaction, Provider Unknown - 10/29/2014 10:05 AM PST Nurse Progress Note by Angelina Meade RN at 10/29/14 1005 Author: Angelina Meade RN Service: (none) Author Type: Registered Nurse Filed: 10/29/14 1044 Date of Service: 10/29/14 100 Status: Signed Drywall Applicator: Angelina Meade RN (Registered Nurse) Report given to MICHELL Corral at [place] orcas Cintron, PT - 10/29/2014 9:20 AM PSTFormatting of this note might be different from t he original. Therapy Progress Note by Dorcas Holguin PT at 10/29/14919 Author: Dorcas Holguin PT Service: (none) Author Type: Physical Therapist Filed: 10/29/14 1112 Date of Service: 10/29/14919 Status: Signed Drywall Applicator: Dorcas Holguin PT (Physical Therapist) 10/29/14919 PT Last Visit PT Received On 10/29/14 Reason for Treatment Brain injury Requires PT Follow Up Yes Follow up PT Only? No Focus for Next Treatment Formal Balance Assessment PT Eval/Reassessment Date 10/29/14 Assistance Required 2 person Cell Lead Needed No Precautions Other Precautions helmet when [...] Barriers to Discharge Physical Deficits Impacting Functional [place];Self-care Deficit s Impacting Functional [place] Recommendation Comments Pt may be discharging to SNF today if ready. Cecilio Briones MD - 10/28/2014 3:03 PM PST . Progress Notes by Cecilio Bravo MD at 10/28/14 1508 Author: Cecilio Bravo MD Service: Hospitalist Author Type: Physician Filed: 10/28/14 1509 Date of Service: 10/28/14 150 Status: Signed Drywall Applicator: Cecilio Bravo MD (Physician) [facility]: Hospitalist Progress Note Hospital Day: LOS: 17 days Post-Op Day: 11 Days Post-Op SUBJECTIVE Patient Summary: Per ICU note: The patient is a 53 y.o. male with significant past medical history of chronic alcohol abus e and multiple falls. Per ED report from [facility]: he was drinking earlier today at home and fell twice. He went to bed and then he was noted to be having what they thought was seizure activity and th ey could not wake him and called EMS. He was taken to the ED at [facility] in [place] then transferred to the ED here for [...] and multiple falls who was transferred from [facility] due to a fall, seizures . [...] placement to improve s trength and mobility. rn admissions are working on finding placement which may [...] since transfer from ICU. Pending bed placement. Narcsio sweeney is considering pt at this time. [...] Oct 17 2014 7:38AM Referring Provider Line: [phone] ID: [id number] Ct Head Without Contrast 10/16/2014 [...] Oct 16 2014 6:08AM Referring Provider Line: [phone] E ID: [id number] PROBLEM LIST ASSESSMENT & [...] iscussion. CM routed updated medical notes to [facility] and [place]. PT recommending SNF. CM spoke w/ Tyler at [facility] and Mary Beth at [place], efaxed updated medical information, grace th are [...] at this time; planned for placement in [place] once patient is off sitter for 48 hrs. Otherwise patient continues to interact appropriately at this time and no impulsiveness is shown. Patient is mostly in chair or in bed and sleeping. 10/27 pt is alert today, no complications. Continue with PT. Pt without sitter. Pending plac ement still. 10/28 planning re-evaluation of patient's status for admission to [place]. Pt otherwise is not impulsive, mostly calm [...] Bravo MD 10/28/2014 Maria Teresa Dhillon MA, CCC-RISK INVESTIGATOR - 10/27/2014 4:14 PM PST Therapy Progress Note by MS KT Hayes-RISK INVESTIGATOR at 10/27/14 2624 Author: MS KT Hayes-RISK INVESTIGATOR Service: (none) Author Type: Speech Therapist Filed: 10/27/14 5070 Date of Service: 10/27/141613 Status: Signed Drywall Applicator: MS KT Hayes-RISK INVESTIGATOR (Speech and Language Pathologist) 10/27/14 1600 Swallowing Assessment Eval Swallowing Treatment Yes Consistencies Consistencies Assessed Yes Thin Presentation Cup;Self Fed Oral Phase Thin WFL Pharyngeal Phase Cough - immediate;Delayed swallow initiated;Decreased laryngeal elevation upon palpation [place] Presentation Self Fed;Cup Oral WFL Pharyngeal Phase No overt signs or symptoms of aspiration Dysphagia Mechanically Altered Presentation Spoon Oral Phase WFL Pharyngeal Phase No overt signs or symptoms of aspiration;Cough - Delayed (pt required cues to swallow - pt very agitated during trials) Recommendations Liquids Consistency Recommendations [place] thick Diet Consistency Recommendation Pureed Recommendations Dysphagia [...] Goals Pt will have safe/efficient oral intake [place] thick liquids;Puree diet;With feeding sherley t;Goal progressing Pt will tolerate diet upgrade trials With 1:1 supervision;Goal progressing onver alem Transaction, Provider Unknown - 10/27/2014 2:10 PM PST Therapy Progress Note by Katherin Garay PT at 10/27/14 1307 Author: Katherin Garay PT Service: (none) Author Type: Physical Therapist Filed: 10/27/14 4215 Date of Service: 10/27/141409 Status: Signed Drywall Applicator: Katherin Bohnet, PT (Physical Therapist) 10/27/14 1410 PT Last Visit PT Received On 10/27/14 Reason for Treatment Brain injury (TBI R SDH) Requires PT Follow Up Yes Follow up PT Only? Yes Assistance Required 2 person Cell Lead Needed No Precautions Other Precautions helmet when [...] Barriers to Discharge Physical Deficits Impacting Functional [place];Self-care Deficit s Impacting Functional [place] onver alem Willard, Provider Unknown - 10/27/2014 11:15 AM PST Therapy Progress Note by CADEN Mcgowan at 10/27/14 1115 Author: CADEN Mcgowan Service: (none) Author Type: Occupational Therapist Filed: 10/27/14 1230 Date of Service: 10/27/14 1115 Status: Signed Drywall Applicator: CADEN Mcgowan (Occupational Therapist) 10/27/14 1115 OT Last Visit OT Received On 10/27/14 Reason for Treatment Brain injury Requires OT Follow Up Yes Assistance Required 2 person Cell Lead Needed No Family/Caregiver Present No Precautions Other [...] Acute OT;SNF Equipment Recommended Shower chair with back;Air Traffic Control Specialist;HHSH;Bedside commode Education Completed: Education Topic: ADLs, fine [...] commode, shower chair, hand held shower head, elevators inspector Cognitive deficits impacting functional independence-would benefit from [...] 1402 Date of Service: 10/27/14807 Status: Signed Drywall Applicator: Cecilio Bravo MD (Physician) [facility]: Hospitalist Progress Note Hospital Day: LOS: 16 days Post-Op Day: 11 Days Post-Op SUBJECTIVE Patient Summary: Per ICU note: The patient is a 53 y.o. male with significant past medical history of chronic alcohol abus e and multiple falls. Per ED report from [facility]: he was drinking earlier today at home and fell twice. He went to bed and then he was noted to be having what they thought was seizure activity and th ey could not wake him and called EMS. He was taken to the ED at [facility] in [place] a nd then transferred to the ED [...] and multiple falls who was transferred from [facility] due to a fall, seizures . [...] placement to improve s trength and mobility. rn admissions are working on finding placement which may take few days, however if accepted then can be discharged for rehabilitation Events Overnight: 10/22 pt still somewhat confused, thought he was in [place]. He knew that he fell, but didn [...] Oct 17 2014 7:38AM Referring Provider Line: [phone] ID: [id number] Ct Head Without Contrast 10/16/2014 [...] Oct 16 2014 6:08AM Referring Provider Line: [phone] E ID: [id number] PROBLEM LIST ASSESSMENT & [...] iscussion. CM routed updated medical notes to [facility] and [place]. PT recommending SNF. CM spoke w/ Tyler at [facility] and Mary Beth at [place], efaxed updated medical information, grace th are [...] this time for planned for placement in [place] once patient is off sitter for 48 [...] Date of Service: 10/26/14 1631 Status: Signed Drywall Applicator: CADEN Narvaez (Occupational Therapist) 10/26/14 1600 Time Calculation Start Time 1600 Stop Time 1615 Time Calculation (min) 15 min $ ADLs/IADLs ADLS/IADLS Charges Home management training $Home Management Training 8-22 mins Therapy Time 15 Minutes 10/26/14 1600 OT Last Visit OT Received On 10/26/14 Reason for Treatment Brain injury Requires OT Follow Up Yes Assistance Required 2 person Cell Lead Needed No Family/Caregiver Present No Precautions Other [...] his mouth. about 4 rounds of gentle jmniv-eelg-cx awakened. Activity Tolerance Activity Tolerance Patient limited [...] elevated Grooming Final Score 5 Comprehension (in andreafski language) 3 - Patient requires moderate assist to comprehend DUE TO? needing parts of sentences repea stephenie 2 - Patient requires maximal assist to comprehend DUE TO? only understanding simple express ions Comprehension Final Score 2 - Maximal assistance Expression (in andreafski language) 2 - Patient requires maximal assist [...] Date of Service: 10/26/14 1554 Status: Signed Drywall Applicator: CADEN Narvaez (Occupational Therapist) Chart opened in error onversion Transa ction, Provider Unknown - 10/26/2014 1:34 PM PST Progress Notes by Anna Venegas RD at 10/26/14 1334 Author: Anna Venegas RD Service: (none) Author Type: Registered Dietitian Filed: 10/26/14 1347 Date of Service: 10/26/14 1334 Status: Signed Drywall Applicator: Anna Venegas RD (Doyle Dietitian) Nutrition Follow-Up [...] on current weight of 85 kg Kcal: 5735-0808 (25-30 kcal/kg) Protein: 102-128 gr (1.2-1.5 gr/kg) [...] (none) Author Type: Physical Therapist Filed: 10/26/14 0082 Date of Service: 10/26/14 1313 Status: Signed Drywall Applicator: Thalia Simmons PT (Physical Therapist) 10/26/14 1313 [...] 10/26/148 Date of Service: 10/26/141017 Status: Signed Drywall Applicator: ИВАН Elaine (Massage Therapist) 10/26/14 1018 Massage Therapy Interventions Locations Back;Neck;Shoulder Massage Therapy Technique Effleurage;Petrissage;Trinidadian massage Response to treatment Decreased muscle tension;Decreased pain tegNatalee carmichael MS CCC-RISK INVESTIGATOR - 10/26/2014 10:14 AM PST Therapy Progress Note by Natalee Plata MS CCC-RISK INVESTIGATOR at 10/26/14 1014 Author: Natalee Plata MS CCC-RISK INVESTIGATOR Service: (none) Author Type: Speech and Language Pathologist Filed: 10/26/14 1014 Date of Service: 10/26/144 Status: Signed Drywall Applicator: Natalee Plata MS CCC-RISK INVESTIGATOR (Speech and Language Pathologist) 10/26/14 0945 Swallowing Assessment Eval Swallowing Treatment Yes Initial Swallow Assessment Behavior/Cognition Cooperative;Neuro impairment Patient Positioning Upright in chair Consistencies Consistencies Assessed Yes Thin Presentation Cup;Self Fed Oral Phase Thin WFL Pharyngeal Phase Cough - immediate [place] Presentation Cup;Self Fed Oral WFL Pharyngeal Phase No overt signs or symptoms of aspiration Dysphagia Mechanically Altered Presentation Spoon Oral Phase WFL Pharyngeal Phase No overt signs or symptoms of aspiration Dysphagia Advanced Presentation Spoon Oral Phase WFL Pharyngeal Phase No overt signs or symptoms of aspiration Recommendations Liquids Consistency Recommendations [place] thick Diet Consistency Recommendation Pureed Recommendations Dysphagia [...] treatment;Continue with current plan Natalee Plata MS CCC-RISK INVESTIGATOR ljaylon, Me shari Baumann PT - 10/26/2014 8:58 AM PSTFormatting of this note might be different from the madelin booker. Therapy Progress Note by Thalia Simmons PT at 10/26/14 0858 Author: Thalia Simmons PT Service: (none) Author Type: Physical Therapist Filed: 10/26/14 0937 Date of Service: 10/26/14857 Status: Signed Drywall Applicator: Thalia Simmons PT (Physical Therapist) 10/26/14 0858 PT Last Visit PT Received On 10/26/14 Reason for Treatment Brain injury (SDH. bone flap removed) Requires PT Follow Up Yes Follow up PT Only? Yes Assistance Required 2 person Cell Lead Needed No Precautions Other Precautions helmet on [...] Barriers to Discharge Physical Deficits Impacting Functional [place];Self-care Deficit s Impacting Functional [place];Neurological Impairment (see comment);Pain VS: 117/82 87 98% ra Cecilio Briones MD - 10/26/2014 8:09 AM PST Progress Notes by Cecilio Bravo MD at 10/26/14808 Author: Cecilio Bravo MD Service: Hospitalist Author Type: Physician Filed: 10/26/14 0441 Date of Service: 10/26/14808 Status: Signed Drywall Applicator: Cecilio Bravo MD (Physician) [facility]: Hospitalist Progress Note Hospital Day: LOS: 15 days Post-Op Day: 11 Days Post-Op SUBJECTIVE Patient Summary: Per ICU note: The patient is a 53 y.o. male with significant past medical history of chronic alcohol abus e and multiple falls. Per ED report from [facility]: he was drinking earlier today at home and fell twice. He went to bed and then he was noted to be having what they thought was seizure activity and th ey could not wake him and called EMS. He was taken to the ED at [facility] in [place] a nd then [...] and multiple falls who was transferred from [facility] due to a fall, seizures . [...] placement to improve s trength and mobility. rn admissions are working on finding placement which may take few days, however if accepted then can be discharged for rehabilitation Events Overnight: 2/ pt still somewhat confused, thought he was in [place]. He knew that he fell, but didn [...] Oct 17 2014 7:38AM Referring Provider Line: [phone] ID: [id number] Ct Head Without Contrast 10/16/2014 [...] Oct 16 2014 6:08AM Referring Provider Line: [phone] E ID: [id number] PROBLEM LIST ASSESSMENT & [...] iscussion. CM routed updated medical notes to [facility] and [place]. PT recommending SNF. CM spoke w/ Tyler at [facility] and Mary Beth at [place], efaxed updated medical information, grace th are [...] this time for planned for placement in [place] once patient is off sitter for 48 [...] Notes by Cecilio Bravo MD at 10/25/14 6518 Author: Cecilio Bravo MD Service: Hospitalist Author Type: Physician Filed: 10/25/14 6146 Date of Service: 10/25/141623 Status: Signed Drywall Applicator: Cecilio Bravo MD (Physician) [facility]: Hospitalist Progress Note Hospital Day: LOS: 14 days Post-Op Day: 11 Days Post-Op SUBJECTIVE Patient Summary: Per ICU note: The patient is a 53 y.o. male with significant past medical history of chronic alcohol abus e and multiple falls. Per ED report from [facility]: he was drinking earlier today at home and fell twice. He went to bed and then he was noted to be having what they thought was seizure activity and th ey could not wake him and called EMS. He was taken to the ED at [facility] in [place] a nd then transferred to the ED [...] and multiple falls who was transferred from [facility] due to a fall, seizures . [...] placement to improve s trength and mobility. rn admissions are working on finding placement which may [...] Oct 17 2014 7:38AM Referring Provider Line: [phone] ID: [id number] Ct Head Without Contrast 10/16/2014 [...] Oct 16 2014 6:08AM Referring Provider Line: [phone] E ID: [id number] PROBLEM LIST ASSESSMENT & [...] iscussion. CM routed updated medical notes to [facility] and [place]. PT recommending SNF. CM spoke w/ Tyler at [facility] and Mary Beth at [place], efaxed updated medical information, grace th are [...] Cecilio Bravo MD 10/25/2014 Lin Richardson MS CCC-RISK INVESTIGATOR - 10/25/2014 3:31 PM PST Therapy Progress Note by Emilie Sutherland MS CCC-RISK INVESTIGATOR at 10/25/14 1531 Author: Emilie Sutherland MS CCC-RISK INVESTIGATOR Service: (none) Author Type: Speech Therapist Filed: 10/25/14 1532 Date of Service: 10/25/14 1531 Status: Signed Drywall Applicator: Emilie Sutherland MS CCC-RISK INVESTIGATOR (Speech Therapist) 10/25/14 1531 RISK INVESTIGATOR Last Visit RISK INVESTIGATOR Received On 10/25/14 Requires RISK INVESTIGATOR Follow Up Unavailable (pt asleep and has [...] Date of Service: 10/25/14 1145 Status: Signed Drywall Applicator: Trina Maldonado PT (Physical Therapist) 10/25/14 1145 PT Last Visit PT Received On 10/25/14 Reason for Treatment Brain injury (right SDH) Requires PT Follow Up Yes Follow up PT Only? Yes Assistance Required 2 person Cell Lead Needed No Precautions Other Precautions helmet for [...] Author: TABITHA Armstrong Service: (none) Author Type: Neon Electrician Filed: 10/25/14 1003 Date of Service: 10/25/14 1002 Status: Signed Drywall Applicator: TABITHA Armstrong (Neon Electrician) CM received a phone call from Loan at [facility] who agreed to accept pt once he dem onstrates he does not require a sitter for 48hrs. Jem NOEL onver alem Transaction, Provider Unknown - 10/24/2014 2:43 PM PST Case Management by TABITHA Armstrong at 10/24/14 1443 Author: TABITHA Armstrong Service: (none) Author Type: Neon Electrician Filed: 10/24/14 6102 Date of Service: 10/24/14 6063 Status: Signed Drywall Applicator: TABITHA Armstrong (Neon Electrician) CM phoned both [facility] to see if they can accept pt. [facility] declined to accept pt. [facility] is still considering him. CM faxed a referral to [facility] as well. Jem NOEL Camille Montaño MD - 10/24/2014 2:00 PM PSTFormatting of this note might be different from marylou cook original. Progress Notes by Cecilio Bravo MD at 10/24/14 1400 Author: Cecilio Bravo MD Service: Hospitalist Author Type: Physician Filed: 10/24/14 1401 Date of Service: 10/24/14 1400 Status: Signed Drywall Applicator: Cecilio Bravo MD (Physician) [facility] Service: Hospitalist Progress Note Hospital Day: LOS: 13 days Post-Op Day: 11 Days Post-Op SUBJECTIVE Patient Summary: Per ICU note: The patient is a 53 y.o. male with significant past medical history of chronic alcohol abus e and multiple falls. Per ED report from [facility]: he was drinking earlier today at home and fell twice. He went to bed and then he was noted to be having what they thought was seizure activity and th robbie could not wake him and called EMS. He was taken to the ED at [facility] in [place] a nd then [...] and multiple falls who was transferred from [facility] due to a fall, seizures . [...] placement to improve s trength and mobility. rn admissions are working on finding placement which may take few days, however if accepted then can be discharged for rehabilitation Events Overnight: 2/2 pt still somewhat confused, thought he was in [place]. He knew that he fell, but didn [...] Oct 17 2014 7:38AM Referring Provider Line: [phone] ID: 004 Ct Head Without Contrast 10/16/2014 [...] Oct 16 2014 6:08AM Referring Provider Line: [phone] E ID: [id number] PROBLEM LIST ASSESSMENT & [...] iscussion. CM routed updated medical notes to [facility] and [facility]. PT recommending SNF. CM spoke w/ Tyler at [facility] and Mary Beth at [facility], efaxed updated medical information, grace th are [...] MD 10/24/2014 ovarbritni ospina, Jessica Christy MA, CCC-RISK INVESTIGATOR - 10/24/2014 11:48 AM PST Therapy Progress Note by Jessica Headley MA CCC-RISK INVESTIGATOR at 10/24/14 1148 Author: Jessica Headley MA CCC-RISK INVESTIGATOR Service: (none) Author Type: Speech and Language Pathologist Filed: 10/24/14 1148 Date of Service: 10/24/14 1148 Status: Signed Drywall Applicator: Jessica Headley MA CCC-RISK INVESTIGATOR (Speech and Language Pathologist) 10/24/14 1123 Swallowing Assessment Eval Swallowing Treatment Yes Initial Swallow Assessment Behavior/Cognition Cooperative;Alert Consistencies Consistencies Assessed Yes Thin Presentation Cup;Spoon Oral Phase Thin WFL Pharyngeal Phase Cough - immediate (immediate coughing with thins via cup) [place] Presentation Cup;Self Fed Oral WFL Pharyngeal Phase No overt signs or symptoms of aspiration Puree Presentation Spoon Oral Phase WFL Pharyngeal No overt signs or symptoms of aspiration;Delayed Swallow Recommendations Liquids Consistency Recommendations [place] thick Diet Consistency Recommendation Pureed Recommendations Dysphagia [...] Goals Pt will have safe/efficient oral intake [place] thick liquids;Puree diet;With feeding sherley t;Goal progressing Pt will tolerate diet upgrade trials With 1:1 supervision;Goal progressing onver alem Willard, Provider Unknown - 10/24/2014 10:07 AM PST Therapy Progress Note by ИВАН Elaine at 10/24/14 1007 Author: ИВАН Elaine Service: (none) Author Type: Massage Therapist Filed: 10/24/14 1007 Date of Service: 10/24/14 1007 Status: Signed Drywall Applicator: ИВАН Elaine (Massage Therapist) 10/24/14 1007 Massage Therapy Interventions Locations Back;Neck;Shoulder Massage Therapy Technique Effleurage;Petrissage;Trinidadian massage Response to treatment Decreased muscle tension Camille Montaño MD - 10/23/2014 4:38 PM PSTFormatting of this note might be different from th e original. Progress Notes by Cecilio Bravo MD at 10/23/14 1638 Author: Cecilio Bravo MD Service: Hospitalist Author Type: Physician Filed: 10/23/14 1641 Date of Service: 10/23/14 1638 Status: Signed Drywall Applicator: Cecilio Bravo MD (Physician) [facility] Service: Hospitalist Progress Note Hospital Day: LOS: 12 days Post-Op Day: 11 Days Post-Op SUBJECTIVE Patient Summary: Per ICU note: The patient is a 53 y.o. male with significant past medical history of chronic alcohol abus e and multiple falls. Per ED report from [facility]: he was drinking earlier today at home and fell twice. He went to bed and then he was noted to be having what they thought was seizure activity and th ey could not wake him and called EMS. He was taken to the ED at [facility] in [place] a nd then transferred to the ED [...] and multiple falls who was transferred from [facility] due to a fall, seizures . [...] placement to improve s trength and mobility. rn admissions are working on finding placement which may take few days, however if accepted then can be discharged for rehabilitation Events Overnight: 2/2 pt still somewhat confused, thought he was in [place]. He knew that he fell, but didn [...] Oct 17 2014 7:38AM Referring Provider Line: [phone] ID: 004 Ct Head Without Contrast 10/16/2014 [...] Oct 16 2014 6:08AM Referring Provider Line: [phone] E ID: [id number] PROBLEM LIST ASSESSMENT & [...] iscussion. CM routed updated medical notes to [facility] and [facility]. PT recommending SNF. CM spoke w/ Tyler at [facility] and Mary Beth at [facility], efaxed updated medical information, grace th are [...] Management by Yeimi Ruiz RN at 10/23/14 9152 Author: Yeimi Ruiz RN Service: (none) Author Type: Registered Nurse Filed: 10/23/14 1640 Date of Service: 10/23/14 3240 Status: Signed Drywall Applicator: Yeimi Ruiz RN (Registered Nurse) CM received a call from Sherry who is the Community Health Nurse from the [facility]. ([phone] and fax [phone]) She states that she can assist with [...] (none) Author Type: Physical Therapist Filed: 10/23/14 0850 Date of Service: 10/23/14 1140 Status: Signed Drywall Applicator: Amara Duran PT (Physical Therapist) 10/23/14 1140 PT Last Visit PT Received On 10/23/14 Reason for Treatment Brain injury (right SDH) Requires PT Follow Up Yes Follow up PT Only? Yes Focus for Next Treatment Formal Balance Assessment;Bed Mobility Technique;Transfer Techniqu e Assistance Required 2 person Cell Lead Needed No Precautions Other Precautions kye for [...] Barriers to Discharge Physical Deficits Impacting Functional [place] Recommendation Comments Pt. continues to require maximal assist for all mobility needs. Sebastian l need further skilled PT to address deficits prior to return home. onver Larissa Carey Unknown - 10/23/2014 11:29 AM PST Therapy Progress Note by ИВАН Poole at 10/23/14 1129 Author: ИВАН Poole Service: (none) Author Type: Massage Therapist Filed: 10/23/14 1130 Date of Service: 10/23/14 1129 Status: Signed Drywall Applicator: ИВАН Poole (Massage Therapist) 10/23/14 1100 Massage Therapy Interventions Locations Back;Neck;Shoulder Massage Therapy Technique Effleurage;Petrissage;Trinidadian massage;Trigger point Response to treatment Decreased pain;Decreased [...] 10/22/141825 Date of Service: 10/22/141810 Status: Signed Drywall Applicator: Cecilio Bravo MD (Physician) [facility] Service: Hospitalist Progress Note Hospital Day: LOS: 11 days Post-Op Day: 11 Days Post-Op SUBJECTIVE Patient Summary: Per ICU note: The patient is a 53 y.o. male with significant past medical history of chronic alcohol abus e and multiple falls. Per ED report from [facility]: he was drinking earlier today at home and fell twice. He went to bed and then he was noted to be having what they thought was seizure activity and th ey could not wake him and called EMS. He was taken to the ED at [facility] in [place] a nd then transferred to the ED [...] and multiple falls who was transferred from [facility] due to a fall, seizures . [...] placement to improve s trength and mobility. rn admissions are working on finding placement which may take few days, however if accepted then can be discharged for rehabilitation Events Overnight: 2/ pt still somewhat confused, thought he was in [place]. He knew that he fell, but didn [...] Oct 17 2014 7:38AM Referring Provider Line: [phone] ID: 004 Ct Head Without Contrast 10/16/2014 [...] Oct 16 2014 6:08AM Referring Provider Line: [phone] E ID: [id number] PROBLEM LIST ASSESSMENT & [...] iscussion. CM routed updated medical notes to [facility] and [facility]. PT recommending SNF. CM spoke w/ Tyler at [facility] and Mary Beth at [facility], efaxed updated medical information, grace th are [...] Cecilio Bravo MD 10/22/2014 Lin Richardson, MS CCC-RISK INVESTIGATOR - 10/22/2014 3:22 PM PST Therapy Progress Note by Emilie Sutherland MS CCC-RISK INVESTIGATOR at 10/22/14 1522 Author: Emilie Sutherland MS CCC-RISK INVESTIGATOR Service: (none) Author Type: Speech Therapist Filed: 10/22/14 1522 Date of Service: 10/22/14 1522 Status: Signed Drywall Applicator: Emilie Sutherland MS CCC-RISK INVESTIGATOR (Speech Therapist) 10/22/14 7630 RISK INVESTIGATOR Last Visit RISK INVESTIGATOR Received On 10/22/14 Requires RISK INVESTIGATOR Follow Up Unavailable (attempted pt just given pain meds, very tired) Attempted to do trials, however pt every difficulty to keep wake. onversion T ransaction, Provider Unknown - 10/22/2014 3:15 PM PSTFormatting of this note might be diffe rent from the original. Case Management by TABITHA Dejesus at 10/22/14 1515 Author: TABITHA Dejesus Service: (none) Author Type: Health Data Administrator Filed: 10/22/14 1527 Date of Service: 10/22/14 1515 Status: Addendum Drywall Applicator: TABITHA Dejesus (Health Data Administrator) Related Notes: Original Note by TABITHA Dejesus (Health Data Administrator) filed at 10/22/14 1518 CM attempted to meet pt for d/c planning. CM could not arouse pt for discussion. CM route d updated medical notes to [facility] and [facility]. PT recommending SNF. CM spoke w/ Tyler at [facility] and Mary Beth at [facility], efaxed updated medical information, both are looking [...] Date of Service: 10/22/14 1435 Status: Addendum Drywall Applicator: Jennifer Alberts RD (Registered Dietitian) Related Notes: [...] time; Cr .65 (L). Nutrition-focused physical findings: RISK INVESTIGATOR following for dysphagia. Diet order/current intake: Pureed, [...] offered daily. Recommendations: 1. Continue diet per RISK INVESTIGATOR. 2. Magic cups with meal trays. 3. Monitor pt's weight. 4. Offer high calorie foods on meal trays. Monitoring: Will follow up in 4 days per nutrition protocol. Jennifer Alberts MS, internal medicine doctor, 10/22/14. onver alem Transaction, Provider Unknown - 10/22/2014 9:56 AM PST Therapy Progress Note by ИВАН Elaine at 10/22/14955 Author: ИВАН Elaine Service: (none) Author Type: Massage Therapist Filed: 10/22/1456 Date of Service: 10/22/14955 Status: Signed Drywall Applicator: Pelon M Bryner, LMP (Massage Therapist) 10/22/14 [...] 1104 Date of Service: 10/22/14899 Status: Signed Drywall Applicator: Dorcas Holguin PT (Physical Therapist) 10/22/14899 PT Last Visit PT Received On 10/22/14 Reason for Treatment (R SDH) Requires PT Follow Up Yes Follow up PT Only? Yes Focus for Next Treatment Formal Balance Assessment;Bed Mobility Technique;Transfer Techniqu e PT Eval/Reassessment Date 10/22/14 Assistance Required 2 person Cell Lead Needed No Precautions Other Precautions helmet when [...] oriented to self also remembers RN and DRAFTER ENGINEERING;s name. 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 [id number] 438/[id number] male PER PT NONE Hospital Day: LOS: 10 days SUBJECTIVE Patient Summary: Patient is a 53 year old male with past medical history of Chronic Alcohol Abuse, Dependenc e and multiple falls who was transferred from [facility] due to a fall, seizures . [...] placement to improve s trength and mobility. rn admissions are working on finding placement which may [...] acute distr ess. HEENT: Head: S/P Craniotomy. [place] at midline and temporo parietoccipital area of [...] and followed by Dr. Nj from [facility]. He is making slow progress [...] Discharge plans to a SNF for rehabilitation. [facility] is working on placement which cou ld be challenging due to [place] Medicaid. His insurance may contribute in the [...] (none) Author Type: Occupational Therapist Filed: 10/20/14 1536 Date of Service: 10/20/14 1533 Status: Signed Drywall Applicator: CADEN Narvaez (Occupational Therapist) 10/20/14 1500 OT Last Visit OT Received On 10/20/14 Reason for Treatment Brain injury Requires OT Follow Up On hold Plan Requires OT Follow Up On hold RN states that pt is not at his best right now. Suggests to return tomorrow. ashmi, Travon garcai MD - 10/20/2014 9:23 AM PST . Progress Notes by Travon Mitchell MD at 10/20/14922 Author: Travon Mitchell MD Service: Hospitalist Author Type: Physician Filed: 10/20/14 1506 Date of Service: 10/20/14922 Status: Signed Drywall Applicator: Travon Mitchell MD (Physician) [facility]: Hospitalist Progress Note Tony Fortune 53 y.o. [id number] 438/[id number] male PER PT NONE Hospital Day: LOS: 9 days SUBJECTIVE Patient Summary: Patient is a 53 year old male with past medical history of Chronic Alcohol Abuse, Dependenc e and multiple falls who was transferred from [facility] due to a fall, seizures . [...] in acute distress. HEENT: Head: S/P Craniotomy. [place] at midline and temporo parietoccipital area of [...] now followed by Dr. Nj from [facility] rosurgery services. He is making [...] Discharge plans to a SNF for rehab. [facility] is working on placement which could be harley [employer]enging due to [place] Medicaid insurance and may delay the discharge [...] (none) Author Type: Occupational Therapist Filed: 10/19/14 5377 Date of Service: 10/19/14 1501 Status: Signed Drywall Applicator: CADEN Mcgowan (Occupational Therapist) 10/19/14 1501 Precautions Other Precautions helmet on when OOB Home Environment Bathroom Shower/Tub Tub/shower unit;Shower unit with threshold (uses walk in shower) Bathroom Toilet Standard Bathroom Equipment Grab bars in shower/bath Additional Comments Refer to PT note for PLOF Prior Function Level of [place] Independent with functional mobility;Independent with ADLs;Independe nt with IADLs Lives With Sibling(s) (stated living with brother) ADL Assistance Independent Home ADL's Independent ADL Eating Assistance Total (requiring 1:1 for feeding, per DRAFTER ENGINEERING) Grooming Assistance Dependent (per DRAFTER ENGINEERING) Grooming impacted by Cognitive deficits;Ability to follow [...] for ADLs/IADLs) Equipment Recommended Shower chair with back;Air Traffic Control Specialist;HHSH;Grab bars withing home;Bedside co mmode Education Completed: [...] JAVIER Mcgowan, CSRS 10/19/2014 ovarJessica reis MA, CCC-RISK INVESTIGATOR - 10/19/2014 2:12 PM PSTFormatting of this note might be differ ent from the original. Therapy Progress Note by Jessica Headley MA CCC-RISK INVESTIGATOR at 10/19/14 1412 Author: Jessica Headley MA CCC-RISK INVESTIGATOR Service: (none) Author Type: Speech and Language Pathologist Filed: 10/19/14 1413 Date of Service: 10/19/141411 Status: Signed Drywall Applicator: Jessica Headley MA CCC-RISK INVESTIGATOR (Speech and Language Pathologist) 10/19/14 5546 Swallowing Assessment Eval Swallowing Treatment Yes Initial Swallow Assessment Behavior/Cognition Lethargic Consistencies Consistencies Assessed Yes Thin Presentation Spoon;Cup Oral Phase Thin Anterior Spillage Left Pharyngeal Phase Delayed swallow initiated;Spontaneous double swallow;Cough - delayed Puree Presentation Spoon Oral Phase Increased oral holding time Pharyngeal Delayed Swallow;No overt signs or symptoms of aspiration Recommendations Liquids Consistency Recommendations [place] thick Diet Consistency Recommendation Pureed (1-2 snacks [...] Notes by Debora Ott PA-C at 10/19/14 6877 Author: Debora Ott PA-C Service: Neurosurgery Author Type: Physician Senior Investigator - Ce rtified Filed: 10/19/14 7188 Date of Service: 10/19/14 4285 Status: Signed Drywall Applicator: Debora Ott PA-C (Physician Senior Investigator - Certified) [facility]: Neurosurgery Progress Note Hospital Day: LOS: 8 days Post-Op Day: 8 Days Post-Op SUBJECTIVE Patient Summary: s/p craniectomy for large right SDH Events Overnight: Complaining of pain. IPR denied because he lives in [place], antoinette guardado on placement in [place]. Helmet arrived. Scheduled Medications docusate sodium 100 [...] Author: TABITHA Armstrong Service: (none) Author Type: Neon Electrician Filed: 10/19/14 1418 Date of Service: 10/19/14 1346 Status: Addendum Drywall Applicator: TABITHA Armstrong (Neon Electrician) Related Notes: Original Note by TABITHA Armstrong (Neon Electrician) filed at 10/19/14 1347 CM faxed a referral to [facility] in [place] and updated info to [facility] in [place]. CM faxed updated info to the [facility] [place]. Jem NOEL Travon Lara MD - 10/19/2014 1:40 PM PSTFormatting of this note might be different from t he original. Progress Notes by Travon Mitchell MD at 10/19/14 1340 Author: Travon Mitchell MD Service: Hospitalist Author Type: Physician Filed: 10/19/148 Date of Service: 10/19/141339 Status: Signed Drywall Applicator: Travon Mitchell MD (Physician) [facility]: Hospitalist Progress Note Tony Fortune 53 y.o. [id number] 438/[id number] male PER PT NONE Hospital Day: LOS: 8 days SUBJECTIVE Patient Summary: Patient is a 53 year old male with past medical history of Chronic Alcohol Abuse, Dependenc e and multiple falls who was transferred from [facility] due to a fall, seizures . [...] in acute distress. HEENT: Head: S/P Craniotomy. [place] at midline and temporo parietoccipital area of [...] now followed by Dr. Nj from [facility] rosurgery services. He is making [...] when stable to a SNF for rehab. [facility] is working on placement which could be [...] Note by Thalia Simmons PT at 10/19/14 8573 Author: Thalia Simmons PT Service: (none) Author Type: Physical Therapist Filed: 10/19/14 9137 Date of Service: 10/19/14 6357 Status: Signed Drywall Applicator: Thalia Simmons PT (Physical Therapist) 10/19/14 1156 PT Last Visit PT Received On 10/19/14 [...] Author: Crissy Maldonado Service: (none) Author Type: Registered Nurse Nursery Filed: 10/19/147 Date of Service: 10/19/141055 Status: Signed Drywall Applicator: Crissy Maldonado I attempted to meet with the patient to discuss who his PCP is, however he was in patient c are. Crissy Maldonado-[employer] Hand Umbrella Tipper Wing Lewis Perry MD - 10/19/2014 9:01 AM PSTFormatting of this note might be different from the origi nal. Progress Notes by Wing Lewis Argueta MD at 10/19/14900 Author: Wing Lewis Argueta MD Service: (none) Author Type: Physician Filed: 10/19/14901 Date of Service: 10/19/14900 Status: Signed Drywall Applicator: Wing Lewis Argueta MD (Physician) Patient seen [...] Notes by Rosa Lassiter RN at 10/19/14 9568 Author: Rosa Lassiter RN Service: (none) Author Type: Registered Nurse Filed: 10/19/148 Date of Service: 10/19/14445 Status: Signed Drywall Applicator: Rosa Lassiter RN (Registered Nurse) Patient transported [...] PA-C Service: Neurosurgery Author Type: Physician Senior Investigator - Ce rtified Filed: 10/18/141434 Date of Service: 10/18/141431 Status: Signed Drywall Applicator: Debora Ott PA-C (Physician Senior Investigator - Certified) [facility]: Neurosurgery Progress Note Hospital Day: LOS: [...] (none) Author Type: Registered Dietitian Filed: 10/18/14 8498 Date of Service: 10/18/14 115 Status: Signed Drywall Applicator: Maye Saleem RD, BRIAN (Registered Dietitian) Nutrition Follow-Up High-risk follow-up. Assessment: Has been very lethargic. Continues to have right-sided hemiparesis. Nutritionally pertinent labs: Electrolytes, BUN, and Cr are WNL. BG has been variable in th e 100s, no insulin ordered at this time. Nutrition-focused physical findings: Skin is intact. RISK INVESTIGATOR continues to follow due to dysphag ia. Diet order/current intake: Puree snacks, 1-2 items per meal tray TID plus nectar thick liqu ids by spoon only. Per RN, pt had Romanian toast and yogurt this morning and finished 95%. On IV fluids of NS at 30 mL/hr. Continues to receive folic acid and thiamine supplementatio n. Nutrition Diagnosis: Increased kcal/protein requirements related to catabolic illness and healing as evidenced b y TBI. Intervention: Continue diet per RISK INVESTIGATOR recommendations. 1:1 feeds with all meals. Magic Cups to be sent with meal trays. Will monitor wt trend and f/u to provide further nutrition recs based on clinical course. Goal: PO intake will be adequate to meet pt's estimated nutritional requirements. Recommendations: 1) Continue diet per RISK INVESTIGATOR. 2) Magic Cups with meal trays. Monitoring: Will follow up in 4 days or as indicated. Maye Saleem RD, CD, CNSC 10/18/2014 onver alem Transaction, Provider Unknown - 10/18/2014 11:07 AM PST Therapy Progress Note by Flaquito Platt PT at 10/18/14 1107 Author: Flaquito Platt PT Service: (none) Author Type: Physical Therapist Filed: 10/18/14 3360 Date of Service: 10/18/141106 Status: Signed Drywall Applicator: Flaquito Platt PT (Physical Therapist) 10/18/14 1107 [...] AM PST Therapy Progress Note by DAYANARA Ross-RISK INVESTIGATOR at 10/18/14912 Author: DAYANARA Ross-RISK INVESTIGATOR Service: (none) Author Type: Speech and Language Patholo gist Filed: 10/18/14912 Date of Service: 10/18/14912 Status: Signed Drywall Applicator: DAYANARA Ross-RISK INVESTIGATOR (Speech and Language Pathologist) 10/18/14844 Swallowing Assessment Eval Swallowing Treatment Yes Initial Swallow Assessment Respiratory Status Room air Behavior/Cognition Requires cueing;Doesn't follow directions;Lethargic Dentition Adequate Vision Impaired for self-feeding Patient Positioning Upright in bed Volitional Cough Strong Consistencies Consistencies Assessed Yes Ice Chips Presentation Spoon Oral Phase Increased holding time Pharyngeal Phase No overt signs or symptoms of aspirations;Delayed swallow initiation [place] Presentation Cup Oral WFL;Increased Anterior to Posterior Transit Pharyngeal Phase Delayed swallow initiated;No overt signs or symptoms of aspiration;Decreas ed laryngeal elevation upon palpation Dysphagia Mechanically Altered Presentation Spoon Oral Phase Prolonged mastication;Increased holding time Pharyngeal Phase Cough - Delayed (cueing needed to swallow) Recommendations Liquids Consistency Recommendations [place] thick Diet Consistency Recommendation Pureed;Other (comment) (1-2 [...] monitoring;Patient/Family education;Assessment for upgr khadijah Dysphagia Goals Ski Topper Goals Safe/efficient oral intake Pt will have safe/efficient oral intake [place] thick liquids Pt will advanced diet in 3 days;Goal progressing Short Term Goals Tolerate diet Pt will tolerate diet upgrade trials With 1:1 supervision;Goal progressing Pt will tolerate diet Puree;with 1:1 supervision;With feeding assist;Goal progressing Mere Hardy MA CFY-RISK INVESTIGATOR 10/18/2014 Travon Lara MD - 10/18/2014 8:36 AM PSTFormatting of this note might be different from lissett ruvalcaba. Progress Notes by Travon Mitchell MD at 10/18/14835 Author: Travon Mitchell MD Service: Hospitalist Author Type: Physician Filed: 10/18/14 1458 Date of Service: 10/18/14835 Status: Signed Drywall Applicator: Travon Mitchell MD (Physician) [facility]: Hospitalist Progress Note Tony Leeclinton 53 y.o. [id number] -[id number] male PER PT NONE Hospital Day: LOS: 7 days SUBJECTIVE Patient Summary: Patient is a 53 year old male with past medical history of Chronic Alcohol Abuse, Dependenc e and multiple falls who was transferred from [facility] due to a fall, seizures . [...] Author: TABITHA Sidhu Service: (none) Author Type: Neon Electrician Filed: 10/17/14 1049 Date of Service: 10/17/14 1048 Status: Signed Drywall Applicator: TABITHA Sidhu (Neon Electrician) Faxed updated clinical notes to [facility]. PT still not able to do a thorough eval as pt does not have his helmet yet. onver alem Transaction, Provider Unknown - 10/17/2014 10:38 AM PST Therapy Progress Note by Flaquito Platt PT at 10/17/14 1038 Author: Flaquito Platt, PT Service: (none) Author Type: Physical Therapist Filed: 10/17/14 1611 Date of Service: 10/17/14 1038 Status: Signed Drywall Applicator: Flaquito Platt PT (Physical Therapist) 10/17/14 1038 [...] OOB mobility assessment Maria Teresa Valdes MA, CCC-RISK INVESTIGATOR - 10/17/2014 8:36 AM PSTFormatting of this note might be differ ent from the original. Therapy Progress Note by Maria Teresa Lucas MS CFY-RISK INVESTIGATOR at 10/17/14 9078 Author: Maria Teresa Lucas MS CFY-RISK INVESTIGATOR Service: (none) Author Type: Speech Therapist Filed: 10/17/14835 Date of Service: 10/17/14835 Status: Signed Drywall Applicator: Maria Teresa Lucas MS CFY-RISK INVESTIGATOR (Speech and Language Pathologist) 10/17/14824 Swallowing Assessment Eval Swallowing Treatment Yes Consistencies Consistencies Assessed Yes [place] Presentation Cup Oral WFL;Increased Anterior to Posterior Transit Pharyngeal Phase No overt signs or symptoms of aspiration;Delayed swallow initiated;Decreas ed laryngeal elevation upon palpation;Spontaneous double swallow Recommendations Liquids Consistency Recommendations [place] thick;Other (comments) (by spoon) Diet Consistency Recommendation [...] was observed to be tolerating breakfast before RISK INVESTIGATOR walked in. Recommend cont. 1 puree snack [...] education;Assessment for upgr khadijah;Swallow strategies Dysphagia Goals Shelter Goals Safe/efficient oral intake;Advanced diet Pt will have safe/efficient oral intake [place] thick liquids;Puree diet;Goal progressing Pt will advanced diet in 3 days;Goal progressing Short Term Goals Tolerate diet upgrade trials Pt will tolerate diet upgrade trials With 1:1 supervision;Goal progressing Travon Orosco MD - 10/17/2014 8:19 AM PSTFormatting of this note might be different from t regina original. Progress Notes by Travon Mitchell MD at 10/17/14818 Author: Travon Mitchell MD Service: Hospitalist Author Type: Physician Filed: 10/18/14 0019 Date of Service: 10/17/14818 Status: Signed Drywall Applicator: Travon Mitchell MD (Physician) [facility]: Hospitalist Progress Note Tony Fortune 53 y.o. [id number] - male PER PT NONE Hospital Day: LOS: 7 days SUBJECTIVE Patient Summary: Patient is a 53 year old male with past medical history of Chronic Alcohol Abuse, Dependenc e and multiple falls who was transferred from [facility] due to a fall, seizures . [...] in acute distress. HEENT: Head: S/P Craniotomy. Hampton noted at the midline and temporo parietoccipital [...] Notes by Cyndy Nj MD at 10/17/14 0756 Author: Cyndy Nj MD Service: Neurosurgery Author Type: Physician Filed: 10/17/1448 Date of Service: 10/17/14744 Status: Signed Drywall Applicator: Cyndy Nj MD (Physician) [facility]: Neurosurgery Progress Note Hospital Day: LOS: [...] Date of Service: 10/16/14 1430 Status: Signed Drywall Applicator: CADEN Mcgowan (Occupational Therapist) 10/16/14 1430 OT Last Visit OT Received On 10/16/14 Requires OT Follow Up Unavailable (w/PT) Plan to follow up tomorrow for OT evaluation. JAVIER Mcgowan, CSRS 10/16/2014 Coral nichole, JENNIFER Aranog - 10/16/2014 2:29 PM PSTFormatting of this note might be different f rom the original. Progress Notes by JENNIFER Small at 10/16/14 1429 Author: JENNIFER Small Service: Range Rider Author Type: Range Rider Filed: 10/16/14 1506 Date of Service: 10/16/14 1429 Status: Signed Drywall Applicator: JENNIFER Small (Nurse Practitioner) [facility]: Range Rider Progress Note Tony Fortune 53 y.o. Date of Admission: 10/11/2014 Treatment Team: Consulting Physician: Anthony Chong MD Admitting Provider: Harika Apodaca MD CHIEF COMPLAINT: severe TBI, large right SDH with massive midline shift, IC hypertension HISTORY OF PRESENT ILLNESS The patient is a 53 y.o. male with significant past medical history of chronic alcohol abus e and multiple falls. Per ED report from [facility]: he was drinking earlier today at home and fell twice. He went to bed and then he was noted to be having what they thought was seizure activity and th ey could not wake him and called EMS. He was taken to the ED at [facility] in [place] a nd then transferred to the ED [...] Procedure: CRANIECTOMY; Surgeon: Anthony Chong MD; Location: [facility] OR; Ser vice: Neurosurgery; Laterality: Right; [...] 14 2014 5:24AM Refe rring Provider Line: [phone] ID: [id number] Xr Chest 1 View 10/14/2014 [...] upper extremities. Orth otics was consultated and [facility] came and measured him for a helmet [...] (none) Author Type: Physical Therapist Filed: 10/16/14 5582 Date of Service: 10/16/14 1415 Status: Signed Drywall Applicator: Ki Martinez PT (Physical Therapist) 10/16/14 1415 [...] Author: TABITHA Sidhu Service: (none) Author Type: Neon Electrician Filed: 10/16/14 1307 Date of Service: 10/16/14 1300 Status: Signed Drywall Applicator: TABITHA Sidhu (Neon Electrician) Received t/c from Day[facility] at [facility] ([phone]). She is requesting PT notes. I informed [...] her that I made a referral to [place] as a back up plan if pt is not an IPR ca ndidate. I called Doroteo Chamorro Coord for [facility] IPR and she confirmed that [place] [facility] Medicaid requires that pt go to an [place] facility for rehab. Await PT/OT eval. Speech Therapy is already involved. onver alem Transaction, Provider Unknown - 10/16/2014 12:20 PM PST Case Management by TABITHA Sidhu at 10/16/14 1220 Author: TABITHA Sidhu Service: (none) Author Type: Neon Electrician Filed: 10/16/14 1220 Date of Service: 10/16/14 1220 Status: Signed Drywall Applicator: TABITHA Sidhu (Neon Electrician) Placed t/c to [facility] and left message requesting bed availability and acceptance. Await return call. [facility] - Admissions- [phone] onver alem Transaction, Provider Unknown - 10/16/2014 12:01 PM PST Therapy Progress Note by Ki Martinez, PT at 10/16/14 1201 Author: Ki Martinez PT Service: (none) Author Type: Physical Therapist Filed: 10/16/14 1334 Date of Service: 10/16/14 1201 Status: Signed Drywall Applicator: Ki Martinez PT (Physical Therapist) 10/16/14 1201 PT Last Visit PT Received On 10/16/14 (still awaiting ortho helmet delivery) Requires PT Follow Up Yes;On hold Cyndy Warner MD - 10/16/2014 11:22 AM PST Progress Notes by Cyndy Nj MD at 10/16/14 1122 Author: Cyndy Nj MD Service: Neurosurgery Author Type: Physician Filed: 10/16/14 1124 Date of Service: 10/16/14 1122 Status: Signed Drywall Applicator: Cyndy Nj MD (Physician) [facility]: Neurosurgery Progress Note Hospital Day: LOS: [...] nystatin, nystatin, ondansetron OR ondanset gildardo, pancrelipase (Qil-Upjd-Qxpk) 10,000 units, petrolatum, phosphorus OR sodium phospha [...] Oct 16 2014 6:08AM Referring Provider Line: [phone] E ID: [id number] PROBLEM LIST Principal Problem: [...] Nj MD 10/16/2014 Maria Teresa Dhillon MA, CCC-RISK INVESTIGATOR - 10/16/2014 9:40 AM PST Therapy Progress Note by MS CLAUDIA HayesY-RISK INVESTIGATOR at 10/16/14939 Author: MS KT Hayes-RISK INVESTIGATOR Service: (none) Author Type: Speech Therapist Filed: 10/16/14940 Date of Service: 10/16/14939 Status: Signed Drywall Applicator: Maria Teresa Lucas MS CFY-RISK INVESTIGATOR (Speech and Language Pathologist) 10/16/14920 Swallowing Assessment Eval Swallowing Treatment Yes Initial Swallow Assessment Respiratory Status Room air Behavior/Cognition Cooperative;Lethargic;Requires cueing Dentition Adequate;Poor dental/oral hygiene Vision Impaired for self-feeding Patient Positioning Upright in bed Volitional Cough Weak Volitional Swallow Delayed Consistencies Consistencies Assessed Yes [place] Presentation Spoon Oral WFL;Increased Anterior to Posterior Transit Pharyngeal Phase Delayed swallow initiated;Decreased laryngeal elevation upon palpation;Cou gh - delayed;Spontaneous double swallow Puree Presentation Spoon Oral Phase Increased oral holding time Pharyngeal Delayed Swallow;Cough - Delayed;Spontaneous double swallow;Decreased Laryngeal E levation Recommendations Liquids Consistency Recommendations [place] thick;Other (comments) (No straws ) Diet Consistency [...] education;Assessment for upgr khadijah;Swallow strategies Dysphagia Goals Shelter Goals Safe/efficient oral intake;Advanced diet Pt will have safe/efficient oral intake [place] thick liquids;Puree diet;Goal progressing Pt will advanced diet in 3 days;Goal progressing Short Term Goals Tolerate diet upgrade trials Pt will tolerate diet upgrade trials With 1:1 supervision;Goal progressing onver alem Transaction, Provider Unknown - 10/16/2014 9:12 AM PST Case Management by TABITHA Sidhu at 10/16/14 0912 Author: TABITHA Sidhu Service: (none) Author Type: Neon Electrician Filed: 10/16/14 1254 Date of Service: 10/16/14911 Status: Addendum Drywall Applicator: TABITHA Sidhu (Neon Electrician) Related Notes: Original Note by TABITHA Sidhu (Neon Electrician) filed at 10/16/14 0914 10/16/14 0908 Discharge Planning Evaluation Admitting Diagnosis TBI Readmission No Living Arrangements Alone Support Systems Parent;Children Type of Residence Private residence (Lives on the [facility]/housing project) House type (Duplex) Independent with ADL's [...] No Prescription Plan Yes Name of Pharmacy [facility] Anticipated Disposition Facility Type Inpatient Rehabilitation;group home facility Spoke with pt's mother Teressa ([phone]) and discussed discharge planning, Pt is a 53 y.o., male admitted with TBI from 2 falls rela stephenie to etoh. Per mother, pt was driving, shopping, doing own chores prior to admit. 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 Patient's PCP is: PER PT NONE Patient's insurance:[facility] Medicaid Coverage concerns: Medication coverage/concerns: Nahun'eliseo [...] (none) Author Type: Registered Dietitian Filed: 10/15/14 6217 Date of Service: 10/15/141721 Status: Signed Drywall Applicator: Maye Saleem RD, CD (Registered Dietitian) Nutrition Follow-Up High-risk follow-up. Assessment: Extubated yesterday. Appetite is good. Nutritionally pertinent labs: BG has been variable in the 100s, Nutrition-focused physical findings: Skin is intact. RISK INVESTIGATOR is following due to dysphagia. Diet order/current [...] y and TBI. Intervention: Continue diet per RISK INVESTIGATOR. 1:1 feeding assistance with meals. Include Ensure pudding with meal trays when appropriate. Additional supplements to be provided once diet can be advanced. Goal: Pt will tolerate diet upgrade and intake will be adequate to meet pt's estimated nutritiona l requirements. Recommendations: 1) General diet with texture/liquid modifications as per RISK INVESTIGATOR recommendations. 2) Ensure pudding with meal trays once pt can have additional puree items. Monitoring: Will follow up in 3 days or as indicated. Maye Saleem RD, CD 10/15/2014 ang, Cyndy Saucedo MD - 10/15/2014 4:32 PM PST Progress Notes by Cyndy Nj MD at 10/15/14 1632 Author: Cyndy Nj MD Service: Neurosurgery Author Type: Physician Filed: 10/15/14 1635 Date of Service: 10/15/141631 Status: Signed Drywall Applicator: Cyndy Nj MD (Physician) [facility]: Neurosurgery Progress Note Hospital Day: LOS: [...] nystatin, nystatin, ondansetron OR ondanset gildardo, pancrelipase (Gji-Xjta-Avzz) 10,000 units, petrolatum, phosphorus OR sodium phospha [...] 10/15/141932 Date of Service: 10/15/141609 Status: Signed Drywall Applicator: Ki Martinez PT (Physical Therapist) 10/15/14 161 [...] p with bilateral hands, but had minimal ware cleaner bilaterally. Pt was able to reach anteriorly [...] Progress Notes by JENNIFER Small at 10/15/14 1185 Author: JENNIFER Small Service: Range Rider Author Type: Range Rider Filed: 10/15/14 1208 Date of Service: 10/15/14 7983 Status: Signed Drywall Applicator: JENNIFER Small (Nurse Practitioner) [facility]: Range Rider Progress Note Tony Fortune 53 y.o. Date of Admission: 10/11/2014 Treatment Team: Consulting Physician: Anthony Chong MD Admitting Provider: Harika Apodaca MD CHIEF COMPLAINT: severe TBI, large right SDH with massive midline shift, IC hypertension HISTORY OF PRESENT ILLNESS The patient is a 53 y.o. male with significant past medical history of chronic alcohol abus e and multiple falls. Per ED report from [facility]: he was drinking earlier today at home and fell twice. He went to bed and then he was noted to be having what they thought was seizure activity and th ey could not wake him and called EMS. He was taken to the ED at [facility] in [place] a nd then transferred to the ED [...] Procedure: CRANIECTOMY; Surgeon: Anthony Chong MD; Location: [facility] OR; Ser vice: Neurosurgery; Laterality: Right; [...] 14 2014 5:24AM Refe savage Provider Line: [phone] ID: [id number] Xr Chest 1 View 10/14/2014 [...] Author: TABITHA Sidhu Service: (none) Author Type: Neon Electrician Filed: 10/16/14 1251 Date of Service: 10/15/14 1132 Status: Addendum Drywall Applicator: TABITHA Sidhu (Neon Electrician) Related Notes: Original Note by TABITHA Sidhu (Neon Electrician) filed at 10/15/14 1135 Attended morning rounds. Pt is extubated. Will need TBI rehab. Has [place] Medicaid. Referral made to [facility] ([phone]). Faxed initial referral info and updated clinical. Await return call regarding acceptance and bed availability. onver alem Transaction, Provider Unknown - 10/15/2014 11:06 AM PST Therapy Progress Note by ИВАН Poole at 10/15/14 1106 Author: ИВАН Poole Service: (none) Author Type: Massage Therapist Filed: 10/15/14 1106 Date of Service: 10/15/14 1106 Status: Signed Drywall Applicator: ИВАН Poole (Massage Therapist) 10/15/14 1100 MT Last Visit MT Received On 10/15/14 MT Therapy Visit On hold (due to temp >100F in last 24 hrs) Helen Campos MS [facility]-RISK INVESTIGATOR - 10/15/2014 8:30 AM PSTFormatting of this note might be different f rom the original. Therapy Progress Note by Helen Brian MS CFY-RISK INVESTIGATOR at 10/15/14829 Author: MS KT Waters-RISK INVESTIGATOR Service: (none) Author Type: Speech and Language Pa thologist Filed: 10/15/14907 Date of Service: 10/15/14829 Status: Signed Drywall Applicator: MS KT Waters-RISK INVESTIGATOR (Speech and Language Pathologist) 10/15/14829 Swallowing Assessment [...] cough w/ all straw and cup trials) [place] Presentation Cup;Spoon Oral Spillage Left;Increased Anterior to Posterior Transit Pharyngeal Phase Delayed swallow initiated;Decreased laryngeal elevation upon palpation;Cou gh - delayed (delayed cough in 2/6 trials by cup, no cough by spoon) Puree Presentation Spoon Oral Phase Increased oral holding time Pharyngeal Delayed Swallow;Decreased Laryngeal Elevation;Spontaneous double swallow Recommendations Liquids Consistency Recommendations [place] thick;Ice chips for oral comfort (NO STRAWS) [...] monitoring;Patient/Family education;Assessment for upgr khadijah Dysphagia Goals Shelter Goals Safe/efficient oral intake;Advanced diet Pt will have safe/efficient oral intake [place] thick liquids;Puree diet;New/revised goal Pt will advanced diet in 3 days;New/revised goal Short Term Goals Tolerate diet upgrade trials Pt will tolerate diet upgrade trials With 1:1 supervision;New/revised goal onversio n Transaction, Provider Unknown - 10/14/2014 4:48 PM PSTFormatting of this note might be di fferent from the original. Progress Notes by Massiel Stovall RN at 10/14/14 0726 Author: Massiel Stovall RN Service: (none) Author Type: Registered Nurse Filed: 10/14/14 521 Date of Service: 10/14/141647 Status: Signed Drywall Applicator: Massiel Stovall RN (Registered Nurse) Phoned Pt [...] 1413 Date of Service: 10/14/141411 Status: Signed Drywall Applicator: Maria Teresa Castillo RN (Registered Nurse) No need for PICC line at time. Time. Informed Na, FEATHERER to reorder if needed. Idalmis, Primar y RN to change IV today. MARIA TERESA CASTILLO RN Coral nichole, JENNIFER Arango - 10/14/2014 12:33 PM PSTFormatting of this note might be different f rom the original. Progress Notes by JENNIFER Small at 10/14/14 1233 Author: JENNIFER Small Service: Range Rider Author Type: Range Rider Filed: 10/14/14 1316 Date of Service: 10/14/14 1233 Status: Signed Drywall Applicator: JENNIFER Small (Nurse Practitioner) [facility]: Range Rider Progress Note Tony Fortune 53 y.o. Date of Admission: 10/11/2014 Treatment Team: Consulting Physician: Anthony Chong MD Admitting Provider: Harika Apodaca MD CHIEF COMPLAINT: severe TBI, large right SDH with massive midline shift, IC hypertension HISTORY OF PRESENT ILLNESS The patient is a 53 y.o. male with significant past medical history of chronic alcohol abus e and multiple falls. Per ED report from [facility]: he was drinking earlier today at home and fell twice. He went to bed and then he was noted to be having what they thought was seizure activity and th ey could not wake him and called EMS. He was taken to the ED at [facility] in [place] a nd then transferred to the ED [...] Procedure: CRANIECTOMY; Surgeon: Anthony Chong MD; Location: [facility]; Ser vice: Neurosurgery; Laterality: Right; ALLERGIES [...] heels LINES/TUBES: PIVs, daniels cath, left radial Hunter DATA Recent Labs Lab 10/14/14 0415 10/13/14 [...] 14 2014 5:24AM Refe rrgeorges Provider Line: [phone] ID: [id number] Xr Chest 1 View 10/14/2014 [...] 10/14/14644 Date of Service: 10/14/14644 Status: Signed Drywall Applicator: Sophy Vargas RPH (Pharmacist) Day 2 Vanco [...] 10/13/142099 Date of Service: 10/13/142099 Status: Signed Drywall Applicator: Glenys Agiula RPH (Pharmacist) Clinical Pharmacy Note: Pharmacy Dosing [...] - 11.0 K/uL Final Testing performed at [facility], [address] [place] [address] INDICATION: CAP Will begin Vancomycin 1750 mg [...] 10/13/141636 Date of Service: 10/13/141636 Status: Signed Drywall Applicator: Massiel Stovall RN (Registered Nurse) Pulmonary edema in process of resolving. tephe Anthony pierre MD - 10/13/2014 4:04 PM PSTFormatting of this note might be different from t he original. Progress Notes by Anthony Chong MD at 10/13/14 1604 Author: Anthony Chong MD Service: Neurosurgery Author Type: Physician Filed: 10/13/141606 Date of Service: 10/13/141603 Status: Signed Drywall Applicator: Anthony Chong MD (Physician) [facility]: Neurosurgery Progress Note Hospital Day: LOS: [...] nystatin, nystatin, ondansetron OR ondanset gildardo, pancrelipase (Bzf-Uxwt-Whke) 10,000 units, petrolatum, phosphorus OR sodium phospha [...] Date of Service: 10/13/14 1530 Status: Signed Drywall Applicator: Massiel Stovall RN (Registered Nurse) Pt went into flash pulmonary edema, And [facility]IFER [facility] side. [facility], JENNIFER Arango - 10/13/2014 2:57 PM PSTFormatting of this note might be different f rom the original. Progress Notes by JENNIFER Small at 10/13/14 7547 Author: JENNIFER Small Service: Range Rider Author Type: Range Rider Filed: 10/13/14 1510 Date of Service: 10/13/141456 Status: Signed Drywall Applicator: JENNIFER Small (Nurse Practitioner) [facility]: Range Rider Progress Note Tony Fortune 53 y.o. Date of Admission: 10/11/2014 Treatment Team: Consulting Physician: Anthony Chong MD Admitting Provider: Harika Apodaca MD CHIEF COMPLAINT: severe TBI, large right SDH with massive midline shift, IC hypertension HISTORY OF PRESENT ILLNESS The patient is a 53 y.o. male with significant past medical history of chronic alcohol abus e and multiple falls. Per ED report from [facility]: he was drinking earlier today at home and fell twice. He went to bed and then he was noted to be having what they thought was seizure activity and th ey could not wake him and called EMS. He was taken to the ED at [facility] in [place] a nd then transferred to the ED [...] Procedure: CRANIECTOMY; Surgeon: Anthony Chong MD; Location: [facility] OR; Ser vice: Neurosurgery; Laterality: Right; [...] heels LINES/TUBES: PIVs, daniels cath, left radial Hunter DATA Recent Labs Lab 10/13/14 0247 10/12/14 [...] 10/13/14446 Date of Service: 10/13/14442 Status: Signed Drywall Applicator: Mikki Jules RRT (Registered Respiratory Therapist) RT [...] at 10/12/142015 Author: Harika Apodaca MD Service: Range Rider Author Type: Range Rider Filed: 10/12/142026 Date of Service: 10/12/142015 Status: Signed Drywall Applicator: Harika Apodaca MD (Physician) [facility]: Range Rider Progress Note Tony Fortune 53 y.o. Date [...] and multiple falls. Per ED report from [facility]: he was drinking earlier today and fe ll twice. He went to bed and then he was noted to be having what they thought was seizure ac tivity and they could not wake him and called EMS. He was taken to the ED at [facility] and then transferred to the ED [...] Procedure: CRANIECTOMY; Surgeon: Anthony Chong MD; Location: [facility] OR; Ser vice: Neurosurgery; Laterality: Right; [...] 4 mm and reactive. Motor: Able to hull and deck remover RUE to command and left LE to [...] Case Management by TABITHA Sidhu at 10/12/14 7998 Author: TABITHA Sidhu Service: (none) Author Type: Neon Electrician Filed: 10/12/14 5272 Date of Service: 10/12/141529 Status: Signed Drywall Applicator: TABITHA Sidhu (Neon Electrician) Attended morning rounds. Pt is vented and admitted with TBI. No family have visited yet lissett kothari. Pt appears to be responding to some commands. He is a drinker. He reportedly has had s everal falls recently. Pt will need TBI rehab. He is from [place], [place] and [place]. If he requires LTAC h e will need to go to [facility] as [place] Medicaid is contracted with [facility] only. Will c omplete assessment when family arrives. tAnthony rodriguez MD - 10/12/2014 2:04 PM PSTFormatting of this note might be different from t he original. Progress Notes by Anthony Chong MD at 10/12/14 1664 Author: Anthony Chong MD Service: Neurosurgery Author Type: Physician Filed: 10/12/14 4086 Date of Service: 10/12/141403 Status: Signed Drywall Applicator: Anthony Chong MD (Physician) [facility]: Neurosurgery Progress Note Hospital Day: LOS: [...] by Trena Gilbert at 10/11/142349 Author: Trena Gilbetr Service: (none) Author Type: Filed: 10/11/142351 Date of Service: 10/11/142349 Status: Signed Drywall Applicator: Trena Gilbert () [facility] Nayana called with request from family. When I arrived at hospital family had already left. I will leave info for morning manufacturing quality inspector to visit tomorrow. Chaplain Trena Gilbert onver alem Transaction, Provider Unknown - 10/11/2014 11:02 PM PST Progress Notes by Glenys Aguila RPH at 10/11/142301 Author: Glenys Aguila RPH Service: (none) Author Type: Pharmacist Filed: 10/11/142301 Date of Service: 10/11/142301 Status: Signed Drywall Applicator: Glenys Aguila RPH (Pharmacist) Clinical Pharmacy Note: [...] | | | | | | [facility] [address] | | | | | | [place] [address] | | | | | | [phone] | | | | | | | [...] | EXTERNAL LAB: [facility] | Routin | 10/20/2014 | | Results [...] | EXTERNAL LAB: [facility] | Routin | 10/18/2014 | | Results [...] | | | | | [place] [address] | | | | + + + [...] | | | | | [place] [address] | | | | + + + + + + | CO2 | 28Comment: Testing | 23 - 32 mmol/L | EXTERNAL | | | | performed at [facility], [address] | | LAB | | | | [address], | | | | | | [place] [address] | | | | + + + + + + | Anion Gap | 9Comment: Testing | 5 - 20 mmol/L | EXTERNAL | | | | performed at [facility], [address] | | LAB | | | | [address], | | | | | | [place] [address] | | | | + + + + + + | Glucose, | 119 (H)Comment: Testing | 65 - 99 mg/dL | EXTERNAL | | | Fasting | performed at [facility], [address] | | LAB | | | | [address], | | | | | | [place] [address] | | | | + + + + + + | BUN | 8Comment: Testing | 8 - 25 mg/dL | EXTERNAL | | | | performed at [facility], [address] | | LAB | | | | [address], | | | | | | [place] [address] | | | | + + + + + + | Creatinine | 0.54 (L)Comment: Testing | 0.70 - 1.30 | EXTERNAL | | | | performed at [facility], [address] | mg/dL | LAB | | | | [address], | | | | | | [place] [address] | | | | + + + + + + | BUN/Creatin | 15Comment: Testing | | EXTERNAL | | | ine Ratio | performed at [facility], [address] | | LAB | | | | [address], | | | | | | [place] [address] | | | | + + + + + + | Calcium | 9.4Comment: NOTE NEW | 8.5 - 10.5 | EXTERNAL | | | | REFERENCE RANGETesting | mg/dL | LAB | | | | performed at [facility], [address] | | | | | | [address], | | | | | | [place] [address] | | | | + + + [...] | | | | | | at [facility], [address] | | | | | | [address], | | | | | | [place] [address] | | | | + + + [...] | | | | | [place] [address] | | | | + + + + + + | Cl | 101Comment: Testing | 99 - 109 mmol/L | EXTERNAL | | | | performed at [facility], [address] | | LAB | | | | [address], | | | | | | [place] [address] | | | | + + + + + + | CO2 | 29Comment: Testing | 23 - 32 mmol/L | EXTERNAL | | | | performed at [facility], [address] | | LAB | | | | [address], | | | | | | [place] [address] | | | | + + + + + + | Anion Gap | 8Comment: Testing | 5 - 20 mmol/L | EXTERNAL | | | | performed at [facility], [address] | | LAB | | | | [address], | | | | | | [place] [address] | | | | + + + + + + | Glucose, | 118 (H)Comment: Testing | 65 - 99 mg/dL | EXTERNAL | | | Fasting | performed at [facility], [address] | | LAB | | | | [address], | | | | | | [place] [address] | | | | + + + + + + | BUN | 7 (L)Comment: Testing | 8 - 25 mg/dL | EXTERNAL | | | | performed at [facility], [address] | | LAB | | | | [address], | | | | | | [place] [address] | | | | + + + + + + | Creatinine | 0.57 (L)Comment: Testing | 0.70 - 1.30 | EXTERNAL | | | | performed at [facility], [address] | mg/dL | LAB | | | | [address], | | | | | | [place] [address] | | | | + + + + + + | BUN/Creatin | 12Comment: Testing | | EXTERNAL | | | ine Ratio | performed at [facility], [address] | | LAB | | | | [address], | | | | | | [place] [address] | | | | + + + + + + | Calcium | 9.5Comment: NOTE NEW | 8.5 - 10.5 | EXTERNAL | | | | REFERENCE RANGETesting | mg/dL | LAB | | | | performed at [facility], [address] | | | | | | [address], | | | | | | [place] [address] | | | | + + + + + + | Protein, | 7.7Comment: Testing | 6.3 - 8.2 g/dL | EXTERNAL | | | Total | performed at [facility], [address] | | LAB | | | | [address], | | | | | | [place] [address] | | | | + + + + + + | Albumin | 3.5 (L)Comment: Testing | 3.6 - 5.0 g/dL | EXTERNAL | | | | performed at [facility], [address] | | LAB | | | | [address], | | | | | | [place] [address] | | | | + + + + + + | Globulin | 4.2Comment: Testing | 1.3 - 4.9 g/dL | EXTERNAL | | | | performed at [facility], [address] | | LAB | | | [address], | | | | | | [place] [address] | | | | + + + + + + | A/G Ratio | 0.8 (L)Comment: Testing | 1.0 - 2.4 | EXTERNAL | | | | performed at [facility], [address] | | LAB | | | | [address], | | | | | | [place] [address] | | | | + + + + + + | Bilirubin | 0.6Comment: Testing | 0.1 - 1.5 mg/dL | EXTERNAL | | | Total | performed at [facility], [address] | | LAB | | | | [address], | | | | | | [place] [address] | | | | + + + + + + | ALP, | 225 (H)Comment: Testing | 35 - 115 U/L | EXTERNAL | | | External | performed at [facility], [address] | | LAB | | | | [address], | | | | | | [place] [address] | | | | + + + + + + | AST | 52 (H)Comment: Testing | 10 - 45 U/L | EXTERNAL | | | | performed at [facility], [address] | | LAB | | | | [address], | | | | | | [place] [address] | | | | + + + + + + | ALT | 46Comment: Testing | 10 - 65 U/L | EXTERNAL | | | | performed at [facility], [address] | | LAB | | | | [address], | | | | | | [place] [address] | | | | + + + [...] W | | | | | | [address], | | | | | | [place] [address] | | | | + + + [...] | | | | | [place] [address] | | | | + + + + + + | RED CELL | 3.62 (L)Comment: Testing | 4.20 - 5.70 | EXTERNAL | | | COUNT | performed at [facility], [address] | M/uL | LAB | | | | [address], | | | | | | [place] [address] | | | | + + + + + + | Hgb | 12.0 (L)Comment: Testing | 13.2 - 17.0 | EXTERNAL | | | | performed at [facility], [address] | g/dL | LAB | | | | [address], | | | | | | [place] [address] | | | | + + + + + + | Hematocrit, | 36.2 (L)Comment: Testing | 39.0 - 50.0 % | EXTERNAL | | | POC | performed at [facility], [address] | | LAB | | | | [address], | | | | | | [place] [address] | | | | + + + + + + | MCV | 99.9Comment: Testing | 80.0 - 100.0 fl | EXTERNAL | | | | performed at [facility], [address] | | LAB | | | | [address], | | | | | | [place] [address] | | | | + + + + + + | MCH | 33.2Comment: Testing | 27.0 - 34.0 pg | EXTERNAL | | | | performed at [facility], [address] | | LAB | | | | [address], | | | | | | [place] [address] | | | | + + + + + + | MCHC | 33.2Comment: Testing | 32.0 - 35.5 | EXTERNAL | | | | performed at [facility], [address] | g/dL | LAB | | | | [address], | | | | | | [place] [address] | | | | + + + + + + | RDW-CV | 54.7 (H)Comment: Testing | 37 - 53 fl | EXTERNAL | | | | performed at [facility], [address] | | LAB | | | | [address], | | | | | | [place] [address] | | | | + + + + + + | Platelet | 286Comment: Testing | 150 - 400 K/uL | EXTERNAL | | | Count | performed at [facility], [address] | | LAB | | | Plasma | [address], | | | | | | [place] [address] | | | | + + + + + + | MPV | 8.2Comment: Testing | fl | EXTERNAL | | | | performed at [facility], [address] | | LAB | | | | [address], | | | | | | [place] [address] | | | | + + + + + + | Differentia | AUTOMATEDComment: | | EXTERNAL | | | l Type | Testing performed at | | LAB | | | | [facility], [address] | | | | | | [place] | | | | | | [address] | | | | + + + + + + | % Segmented | 72.2Comment: Testing | % | EXTERNAL | | | | performed at [facility], [address] | | LAB | | | Neutrophils | [address], | | | | | | [place] [address] | | | | + + + + + + | % | 16.2Comment: Testing | % | EXTERNAL | | | Lymphocytes | performed at [facility], [address] | | LAB | | | | [address], | | | | | | [place] [address] | | | | + + + + + + | % Monocytes | 7.9Comment: Testing | % | EXTERNAL | | | | performed at [facility], [address] | | LAB | | | | [address], | | | | | | [place] [address] | | | | + + + + + + | % | 3.0Comment: Testing | % | EXTERNAL | | | Eosinophils | performed at [facility], [address] | | LAB | | | | [address], | | | | | | [place] [address] | | | | + + + + + + | % Basophils | 0.7Comment: Testing | % | EXTERNAL | | | | performed at [facility], [address] | | LAB | | | | [address], | | | | | | [place] [address] | | | | + + + + + + | Absolute | 5.7Comment: Testing | 1.9 - 7.4 K/uL | EXTERNAL | | | Segmented | performed at [facility], [address] | | LAB | | | Neutrophils | [address], | | | | | | [place] [address] | | | | + + + + + + | Absolute | 1.3Comment: Testing | 1.0 - 3.9 K/uL | EXTERNAL | | | Lymphocytes | performed at [facility], [address] | | LAB | | | | [address], | | | | | | [place] [address] | | | | + + + + + + | Absolute | 0.6Comment: Testing | 0 - 0.8 K/uL | EXTERNAL | | | Monocytes | performed at [facility], [address] | | LAB | | | | [address], | | | | | | [place] [address] | | | | + + + + + + | Absolute | 0.2Comment: Testing | 0 - 0.5 K/uL | EXTERNAL | | | Eosinophils | performed at [facility], [address] | | LAB | | | | [address], | | | | | | [place] [address] | | | | + + + + + + | Absolute | 0.1Comment: Testing | 0 - 0.1 K/uL | EXTERNAL | | | Basophils | performed at [facility], [address] | | LAB | | | | [address], | | | | | | [place] [address] | | | | + + + [...] EXTERNAL | | | | performed at [facility] | | LAB | | | | [address];[place], [place] | | | | | | [address] | | | | + + + [...] | | | | | [place] [address] | | | | + + + + + + | K | 3.5Comment: Testing | 3.5 - 4.9 | EXTERNAL | | | | performed at [facility], [address] | mmol/L | LAB | | | | [address], | | | | | | [place] [address] | | | | + + + + + + | Cl | 100Comment: Testing | 99 - 109 mmol/L | EXTERNAL | | | | performed at [facility], [address] | | LAB | | | | [address], | | | | | | [place] [address] | | | | + + + + + + | CO2 | 26Comment: Testing | 23 - 32 mmol/L | EXTERNAL | | | | performed at [facility], [address] | | LAB | | | | [address], | | | | | | [place] [address] | | | | + + + + + + | Anion Gap | 11Comment: Testing | 5 - 20 mmol/L | EXTERNAL | | | | performed at [facility], [address] | | LAB | | | | [address], | | | | | | [place] [address] | | | | + + + + + + | Glucose, | 112 (H)Comment: Testing | 65 - 99 mg/dL | EXTERNAL | | | Fasting | performed at [facility], [address] | | LAB | | | | [address], | | | | | | [place] [address] | | | | + + + + + + | BUN | 8Comment: Testing | 8 - 25 mg/dL | EXTERNAL | | | | performed at [facility], [address] | | LAB | | | | [address], | | | | | | [place] [address] | | | | + + + + + + | Creatinine | 0.65 (L)Comment: Testing | 0.70 - 1.30 | EXTERNAL | | | | performed at [facility], [address] | mg/dL | LAB | | | | [address], | | | | | | [place] [address] | | | | + + + + + + | BUN/Creatin | 12Comment: Testing | | EXTERNAL | | | ine Ratio | performed at [facility], [address] | | LAB | | | | [address], | | | | | | [place] [address] | | | | + + + + + + | Calcium | 9.2Comment: NOTE NEW | 8.5 - 10.5 | EXTERNAL | | | | REFERENCE RANGETesting | mg/dL | LAB | | | | performed at [facility], [address] | | | | | | [address], | | | | | | [place] [address] | | | | + + + [...] | | | | | [place] [address] | | | | + + + [...] | | | | | [place] [address] | | | | + + + + + + | K | 3.6Comment: Testing | 3.5 - 4.9 | EXTERNAL | | | | performed at [facility], [address] | mmol/L | LAB | | | | [address], | | | | | | [place] [address] | | | | + + + + + + | Cl | 100Comment: Testing | 99 - 109 mmol/L | EXTERNAL | | | | performed at [facility], [address] | | LAB | | | | [address], | | | | | | [place] [address] | | | | + + + + + + | CO2 | 27Comment: Testing | 23 - 32 mmol/L | EXTERNAL | | | | performed at [facility], [address] | | LAB | | | | [address], | | | | | | [place] [address] | | | | + + + + + + | Anion Gap | 10Comment: Testing | 5 - 20 mmol/L | EXTERNAL | | | | performed at [facility], [address] | | LAB | | | | [address], | | | | | | [place] [address] | | | | + + + + + + | Glucose, | 119 (H)Comment: Testing | 65 - 99 mg/dL | EXTERNAL | | | Fasting | performed at [facility], [address] | | LAB | | | | [address], | | | | | | [place] [address] | | | | + + + + + + | BUN | 11Comment: Testing | 8 - 25 mg/dL | EXTERNAL | | | | performed at [facility], [address] | | LAB | | | | [address], | | | | | | [place] [address] | | | | + + + + + + | Creatinine | 0.64 (L)Comment: Testing | 0.70 - 1.30 | EXTERNAL | | | | performed at [facility], [address] | mg/dL | LAB | | | | [address], | | | | | | [place] [address] | | | | + + + + + + | BUN/Creatin | 17Comment: Testing | | EXTERNAL | | | ine Ratio | performed at [facility], [address] | | LAB | | | | [address], | | | | | | [place] [address] | | | | + + + + + + | Calcium | 9.4Comment: NOTE NEW | 8.5 - 10.5 | EXTERNAL | | | | REFERENCE RANGETesting | mg/dL | LAB | | | | performed at [facility], [address] | | | | | | [facility], | | | | | | [place] [address] | | | | + + + [...] | | | | | | at [facility], [address] | | | | | | [facility], | | | | | | [place] [address] | | | | + + + [...] | | | | | [place] [address] | | | | + + + + + + | RED CELL | 3.83 (L)Comment: Testing | 4.20 - 5.70 | EXTERNAL | | | COUNT | performed at [facility], [address] | M/uL | LAB | | | | [address], | | | | | | [place] [address] | | | | + + + + + + | Hgb | 12.8 (L)Comment: Testing | 13.2 - 17.0 | EXTERNAL | | | | performed at [facility], [address] | g/dL | LAB | | | | [address], | | | | | | [place] [address] | | | | + + + + + + | Hematocrit, | 38.0 (L)Comment: Testing | 39.0 - 50.0 % | EXTERNAL | | | POC | performed at [facility], [address] | | LAB | | | | [address], | | | | | | [place] [address] | | | | + + + + + + | MCV | 99.2Comment: Testing | 80.0 - 100.0 fl | EXTERNAL | | | | performed at [facility], [address] | | LAB | | | | [address], | | | | | | [place] [address] | | | | + + + + + + | MCH | 33.3Comment: Testing | 27.0 - 34.0 pg | EXTERNAL | | | | performed at [facility], [address] | | LAB | | | | [address], | | | | | | [place] [address] | | | | + + + + + + | MCHC | 33.6Comment: Testing | 32.0 - 35.5 | EXTERNAL | | | | performed at [facility], [address] | g/dL | LAB | | | | [address], | | | | | | [place] [address] | | | | + + + + + + | RDW-CV | 56.9 (H)Comment: Testing | 37 - 53 fl | EXTERNAL | | | | performed at [facility], [address] | | LAB | | | | [address], | | | | | | [place] [address] | | | | + + + + + + | Platelet | 327Comment: Testing | 150 - 400 K/uL | EXTERNAL | | | Count | performed at [facility], [address] | | LAB | | | Plasma | [address], | | | | | | [place] [address] | | | | + + + + + + | MPV | 8.3Comment: Testing | fl | EXTERNAL | | | | performed at [facility], [address] | | LAB | | | | [address], | | | | | | [place] [address] | | | | + + + + + + | Differentia | AUTOMATEDComment: | | EXTERNAL | | | l Type | Testing performed at | | LAB | | | | [facility], [address] | | | | | | [place] | | | | | | [address] | | | | + + + + + + | % Segmented | 72.8Comment: Testing | % | EXTERNAL | | | | performed at [facility], [address] | | LAB | | | Neutrophils | [address], | | | | | | [place] [address] | | | | + + + + + + | % | 16.9Comment: Testing | % | EXTERNAL | | | Lymphocytes | performed at [facility], [address] | | LAB | | | | [address], | | | | | | [place] [address] | | | | + + + + + + | % Monocytes | 7.6Comment: Testing | % | EXTERNAL | | | | performed at [facility], [address] | | LAB | | | | [address], | | | | | | [place] [address] | | | | + + + + + + | % | 2.0Comment: Testing | % | EXTERNAL | | | Eosinophils | performed at [facility], [address] | | LAB | | | | [address], | | | | | | [place] [address] | | | | + + + + + + | % Basophils | 0.7Comment: Testing | % | EXTERNAL | | | | performed at [facility], [address] | | LAB | | | | [address], | | | | | | [place] [address] | | | | + + + + + + | Absolute | 6.9Comment: Testing | 1.9 - 7.4 K/uL | EXTERNAL | | | Segmented | performed at [facility], [address] | | LAB | | | Neutrophils | [address], | | | | | | [place] [address] | | | | + + + + + + | Absolute | 1.6Comment: Testing | 1.0 - 3.9 K/uL | EXTERNAL | | | Lymphocytes | performed at [facility], [address] | | LAB | | | | [address], | | | | | | [place] [address] | | | | + + + + + + | Absolute | 0.7Comment: Testing | 0 - 0.8 K/uL | EXTERNAL | | | Monocytes | performed at [facility], [address] | | LAB | | | | [address], | | | | | | [place] [address] | | | | + + + + + + | Absolute | 0.2Comment: Testing | 0 - 0.5 K/uL | EXTERNAL | | | Eosinophils | performed at [facility], [address] | | LAB | | | | [address], | | | | | | [place] [address] | | | | + + + + + + | Absolute | 0.1Comment: Testing | 0 - 0.1 K/uL | EXTERNAL | | | Basophils | performed at [facility], [address] | | LAB | | | | [address], | | | | | | [place] [address] | | | | + + + [...] EXTERNAL | | | | performed at [facility];[address] | | LAB | | | | [address];[place] | | | | | | [address] | | | | + + + [...] | | | | | [place] [address] | | | | + + + + + + | K | 3.8Comment: Testing | 3.5 - 4.9 | EXTERNAL | | | | performed at [facility], [address] | mmol/L | LAB | | | | [address], | | | | | | [place] [address] | | | | + + + + + + | Cl | 98 (L)Comment: Testing | 99 - 109 mmol/L | EXTERNAL | | | | performed at [facility], [address] | | LAB | | | | [address], | | | | | | [place] [address] | | | | + + + + + + | CO2 | 26Comment: Testing | 23 - 32 mmol/L | EXTERNAL | | | | performed at [facility], [address] | | LAB | | | | [address], | | | | | | [place] [address] | | | | + + + + + + | Anion Gap | 11Comment: Testing | 5 - 20 mmol/L | EXTERNAL | | | | performed at [facility], [address] | | LAB | | | | [address], | | | | | | [place] [address] | | | | + + + + + + | Glucose, | 121 (H)Comment: Testing | 65 - 99 mg/dL | EXTERNAL | | | Fasting | performed at [facility], [address] | | LAB | | | | [address], | | | | | | [place] [address] | | | | + + + + + + | BUN | 10Comment: Testing | 8 - 25 mg/dL | EXTERNAL | | | | performed at [facility], [address] | | LAB | | | | [address], | | | | | | [place] [address] | | | | + + + + + + | Creatinine | 0.60 (L)Comment: Testing | 0.70 - 1.30 | EXTERNAL | | | | performed at [facility], [address] | mg/dL | LAB | | | | [address], | | | | | | [place] [address] | | | | + + + + + + | BUN/Creatin | 17Comment: Testing | | EXTERNAL | | | ine Ratio | performed at [facility], [address] | | LAB | | | | [address], | | | | | | [place] [address] | | | | + + + + + + | Calcium | 9.3Comment: NOTE NEW | 8.5 - 10.5 | EXTERNAL | | | | REFERENCE RANGETesting | mg/dL | LAB | | | | performed at [facility], [address] | | | | | | [address], | | | | | | [place] [address] | | | | + + + [...] | | | | | | at [facility], [address] | | | | | | [address], | | | | | | [place] [address] | | | | + + + [...] EXTERNAL | | | | performed at [facility], [address] | | LAB | | | | [address], | | | | | | [place] [address] | | | | + + + + + + | RED CELL | 3.77 (L)Comment: Testing | 4.20 - 5.70 | EXTERNAL | | | COUNT | performed at [facility], [address] | M/uL | LAB | | | | [address], | | | | | | [place] [address] | | | | + + + + + + | Hgb | 12.2 (L)Comment: Testing | 13.2 - 17.0 | EXTERNAL | | | | performed at [facility], [address] | g/dL | LAB | | | | [address], | | | | | | [place] [address] | | | | + + + + + + | Hematocrit, | 37.3 (L)Comment: Testing | 39.0 - 50.0 % | EXTERNAL | | | POC | performed at [facility], [address] | | LAB | | | | [address], | | | | | | [place] [address] | | | | + + + + + + | MCV | 98.9Comment: Testing | 80.0 - 100.0 fl | EXTERNAL | | | | performed at [facility], [address] | | LAB | | | [address], | | | | | | [place] [address] | | | | + + + + + + | MCH | 32.3Comment: Testing | 27.0 - 34.0 pg | EXTERNAL | | | | performed at [facility], [address] | | LAB | | | | [address], | | | | | | [place] [address] | | | | + + + + + + | MCHC | 32.6Comment: Testing | 32.0 - 35.5 | EXTERNAL | | | | performed at [facility], [address] | g/dL | LAB | | | | [address], | | | | | | [place], [place] [address] | | | | + + + + + + | RDW-CV | 58.6 (H)Comment: Testing | 37 - 53 fl | EXTERNAL | | | | performed at [facility], [address] | | LAB | | | | [address], | | | | | | [place], [place] [address] | | | | + + + + + + | Platelet | 274Comment: Testing | 150 - 400 K/uL | EXTERNAL | | | Count | performed at [facility], [address] | | LAB | | | Plasma | [address], | | | | | | [place], [place] [address] | | | | + + + + + + | MPV | 8.1Comment: Testing | fl | EXTERNAL | | | | performed at [facility], [address] | | LAB | | | | [address], | | | | | | [place] [address] | | | | + + + + + + | Differentia | AUTOMATEDComment: | | EXTERNAL | | | l Type | Testing performed at | | LAB | | | | [facility], [address] | | | | | | [place] | | | | | | [address] | | | | + + + + + + | % Segmented | 71.7Comment: Testing | % | EXTERNAL | | | | performed at [facility], [address] | | LAB | | | Neutrophils | [address], | | | | | | [place] [address] | | | | + + + + + + | % | 15.9Comment: Testing | % | EXTERNAL | | | Lymphocytes | performed at [facility], [address] | | LAB | | | | [address], | | | | | | [place] [address] | | | | + + + + + + | % Monocytes | 9.3Comment: Testing | % | EXTERNAL | | | | performed at [facility], [address] | | LAB | | | | [address], | | | | | | [place] [address] | | | | + + + + + + | % | 2.4Comment: Testing | % | EXTERNAL | | | Eosinophils | performed at [facility], [address] | | LAB | | | | [address], | | | | | | [place] [address] | | | | + + + + + + | % Basophils | 0.7Comment: Testing | % | EXTERNAL | | | | performed at [facility], [address] | | LAB | | | | [address], | | | | | | [place] [address] | | | | + + + + + + | Absolute | 6.7Comment: Testing | 1.9 - 7.4 K/uL | EXTERNAL | | | Segmented | performed at [facility], [address] | | LAB | | | Neutrophils | [address], | | | | | | [place] [address] | | | | + + + + + + | Absolute | 1.5Comment: Testing | 1.0 - 3.9 K/uL | EXTERNAL | | | Lymphocytes | performed at [facility], [address] | | LAB | | | | [address], | | | | | | [place] [address] | | | | + + + + + + | Absolute | 0.9 (H)Comment: Testing | 0 - 0.8 K/uL | EXTERNAL | | | Monocytes | performed at [facility], [address] | | LAB | | | | [address], | | | | | | [place] [address] | | | | + + + + + + | Absolute | 0.2Comment: Testing | 0 - 0.5 K/uL | EXTERNAL | | | Eosinophils | performed at [facility], [address] | | LAB | | | | [address], | | | | | | [place] [address] | | | | + + + + + + | Absolute | 0.1Comment: Testing | 0 - 0.1 K/uL | EXTERNAL | | | Basophils | performed at [facility], [address] | | LAB | | | | [address], | | | | | | [place] [address] | | | | + + + [...] EXTERNAL | | | | performed at [facility] | | LAB | | | | [address];[place], [place] | | | | | | [address] | | | | + + + [...] EXTERNAL | | | | performed at [facility] | mmol/L | LAB | | | | [place] [place] | | | | | | [address] | | | | + + + + + + | K | 4.0Comment: Testing | 3.5 - 4.9 | EXTERNAL | | | | performed at [facility] | mmol/L | LAB | | | | [address];[place] | | | | | | [address] | | | | + + + + + + | Cl | 102Comment: Testing | 99 - 109 mmol/L | EXTERNAL | | | | performed at [facility] | | LAB | | | | [address];[place] | | | | | | [address] | | | | + + + + + + | CO2 | 27Comment: Testing | 23 - 32 mmol/L | EXTERNAL | | | | performed at [facility] | | LAB | | | | [address];[place] | | | | | | [address] | | | | + + + + + + | Anion Gap | 10Comment: Testing | 5 - 20 mmol/L | EXTERNAL | | | | performed at [facility] | | LAB | | | | [address];[place] | | | | | | [address] | | | | + + + + + + | Glucose, | 128 (H)Comment: Testing | 65 - 99 mg/dL | EXTERNAL | | | Fasting | performed at [facility] | | LAB | | | | [address];[place] | | | | | | [address] | | | | + + + + + + | BUN | 9Comment: Testing | 8 - 25 mg/dL | EXTERNAL | | | | performed at [facility] | | LAB | | | | [address];[place] | | | | | | [address] | | | | + + + + + + | Creatinine | 0.78Comment: Testing | 0.70 - 1.30 | EXTERNAL | | | | performed at [facility] | mg/dL | LAB | | | | [address];[place] | | | | | | [address] | | | | + + + + + + | BUN/Creatin | 12Comment: Testing | | EXTERNAL | | | ine Ratio | performed at [facility] | | LAB | | | | [address];[place] | | | | | | [address] | | | | + + + + + + | Calcium | 8.4 (L)Comment: NOTE NEW | 8.5 - 10.5 | EXTERNAL | | | | REFERENCE RANGETesting | mg/dL | LAB | | | | performed at [facility] | | | | | | [facility] | | | | | | [address] | | | | + + + [...] | | | | | | at [facility];[address] [facility] | | | | | | Nava;[place] [id number] | | | | + + + [...] 7:38AM | | | Referring Provider Line: [phone] ID: [id number] | | + + + [...] 2014 | | 7:38AM Referring Provider Line: [phone] ID: [id number] | | | |IMPRESSION: | |Unchanged head CT compared to 10/16/2014. | | | |RADIA | | | | Electronically signed by Mariya Calzada MD on Oct 17 2014 7:38AM Referring Provider Dian e: [phone] ID: [id number] | + + Potassium (10/16/2014 5:47 PM PST) + + + + + + | Component | Value | Ref Range | Performed | Pathologist | | | | | At | Signature | + + + + + + | K | 4.2Comment: Testing | 3.5 - 4.9 | EXTERNAL | | | | performed at [facility];888 | mmol/L | LAB | | | | [address];[place] | | | | | | [address] | | | | + + + [...] 6:08AM | | | Referring Provider Line: [phone] ID: [id number] | | + + + [...] 2014 | | 6:08AM Referring Provider Line: [phone] ID: [id number] | | | |IMPRESSION: | | | |Right-sided drain has been removed. No evidence of interval hemorrhage or worsening mass ef fect. Hypodense subdural collection over the right frontal convexity has increased in size. Serial followup suggested. No other significant interval change. | | | | Electronically signed by Jimbo Mckeon MD on Oct 16 2014 6:08AM Referring Provider Line: [phone] ID: [id number] | + + External Lab: [...] | | | | | [place] [address] | | | | + + + + + + | RED CELL | 3.62 (L)Comment: Testing | 4.20 - 5.70 | EXTERNAL | | | COUNT | performed at [facility], [address] | M/uL | LAB | | | | [address], | | | | | | [place] [address] | | | | + + + + + + | Hgb | 11.9 (L)Comment: Testing | 13.2 - 17.0 | EXTERNAL | | | | performed at [facility], [address] | g/dL | LAB | | | | [address], | | | | | | [place] [address] | | | | + + + + + + | Hematocrit, | 36.0 (L)Comment: Testing | 39.0 - 50.0 % | EXTERNAL | | | POC | performed at [facility], [address] | | LAB | | | | [address], | | | | | | [place] [address] | | | | + + + + + + | MCV | 99.4Comment: Testing | 80.0 - 100.0 fl | EXTERNAL | | | | performed at [facility], [address] | | LAB | | | | [address], | | | | | | [place] [address] | | | | + + + + + + | MCH | 32.9Comment: Testing | 27.0 - 34.0 pg | EXTERNAL | | | | performed at [facility], [address] | | LAB | | | | [address], | | | | | | [place] [address] | | | | + + + + + + | MCHC | 33.0Comment: Testing | 32.0 - 35.5 | EXTERNAL | | | | performed at [facility], [address] | g/dL | LAB | | | | [address], | | | | | | [place] [address] | | | | + + + + + + | RDW-CV | 59.5 (H)Comment: Testing | 37 - 53 fl | EXTERNAL | | | | performed at [facility], [address] | | LAB | | | | [address], | | | | | | [place] [address] | | | | + + + + + + | Platelet | 201Comment: Testing | 150 - 400 K/uL | EXTERNAL | | | Count | performed at [facility], [address] | | LAB | | | Plasma | [address], | | | | | | [place] [address] | | | | + + + + + + | MPV | 8.2Comment: Testing | fl | EXTERNAL | | | | performed at [facility], [address] | | LAB | | | | [address], | | | | | | [place] [address] | | | | + + + + + + | Differentia | AUTOMATEDComment: | | EXTERNAL | | | l Type | Testing performed at | | LAB | | | | [facility], [address] | | | | | | [place] | | | | | | [address] | | | | + + + + + + | % Segmented | 77.8Comment: Testing | % | EXTERNAL | | | | performed at [facility], [address] | | LAB | | | Neutrophils | [address], | | | | | | [place] [address] | | | | + + + + + + | % | 9.6Comment: Testing | % | EXTERNAL | | | Lymphocytes | performed at [facility], [address] | | LAB | | | | [address], | | | | | | [place] [address] | | | | + + + + + + | % Monocytes | 10.5Comment: Testing | % | EXTERNAL | | | | performed at [facility], [address] | | LAB | | | | [address], | | | | | | [place] [address] | | | | + + + + + + | % | 1.6Comment: Testing | % | EXTERNAL | | | Eosinophils | performed at [facility], [address] | | LAB | | | | [address], | | | | | | [place] [address] | | | | + + + + + + | % Basophils | 0.5Comment: Testing | % | EXTERNAL | | | | performed at [facility], [address] | | LAB | | | | [address], | | | | | | [place] [address] | | | | + + + + + + | Absolute | 6.8Comment: Testing | 1.9 - 7.4 K/uL | EXTERNAL | | | Segmented | performed at [facility], [address] | | LAB | | | Neutrophils | [address], | | | | | | [place] [address] | | | | + + + + + + | Absolute | 0.8 (L)Comment: Testing | 1.0 - 3.9 K/uL | EXTERNAL | | | Lymphocytes | performed at [facility], [address] | | LAB | | | | [address], | | | | | | [place] [address] | | | | + + + + + + | Absolute | 0.9 (H)Comment: Testing | 0 - 0.8 K/uL | EXTERNAL | | | Monocytes | performed at [facility], [address] | | LAB | | | | [address], | | | | | | [place] [address] | | | | + + + + + + | Absolute | 0.1Comment: Testing | 0 - 0.5 K/uL | EXTERNAL | | | Eosinophils | performed at [facility], [address] | | LAB | | | | [address], | | | | | | [place] [address] | | | | + + + + + + | Absolute | 0.0Comment: Testing | 0 - 0.1 K/uL | EXTERNAL | | | Basophils | performed at [facility], [address] | | LAB | | | | [address], | | | | | | [place] [address] | | | | + + + [...] | | | | | [place] [address] | | | | + + + + + + | K | 3.4 (L)Comment: Testing | 3.5 - 4.9 | EXTERNAL | | | | performed at [facility], [address] | mmol/L | LAB | | | | [address], | | | | | | [place] [address] | | | | + + + + + + | Cl | 102Comment: Testing | 99 - 109 mmol/L | EXTERNAL | | | | performed at [facility], [address] | | LAB | | | | [address], | | | | | | [place] [address] | | | | + + + + + + | CO2 | 27Comment: Testing | 23 - 32 mmol/L | EXTERNAL | | | | performed at [facility], [address] | | LAB | | | | [address], | | | | | | [place] [address] | | | | + + + + + + | Anion Gap | 12Comment: Testing | 5 - 20 mmol/L | EXTERNAL | | | | performed at [facility], [address] | | LAB | | | | [address], | | | | | | [place] [address] | | | | + + + + + + | Glucose, | 151 (H)Comment: Testing | 65 - 99 mg/dL | EXTERNAL | | | Fasting | performed at [facility], [address] | | LAB | | | | [address], | | | | | | [place] [address] | | | | + + + + + + | BUN | 8Comment: Testing | 8 - 25 mg/dL | EXTERNAL | | | | performed at [facility], [address] | | LAB | | | | [address], | | | | | | [place] [address] | | | | + + + + + + | Creatinine | 0.44 (L)Comment: Testing | 0.70 - 1.30 | EXTERNAL | | | | performed at [facility], [address] | mg/dL | LAB | | | | [address], | | | | | | [place] [address] | | | | + + + + + + | BUN/Creatin | 18Comment: Testing | | EXTERNAL | | | ine Ratio | performed at [facility], [address] | | LAB | | | | [address], | | | | | | [place] [address] | | | | + + + + + + | Calcium | 9.1Comment: NOTE NEW | 8.5 - 10.5 | EXTERNAL | | | | REFERENCE RANGETesting | mg/dL | LAB | | | | performed at [facility], [address] | | | | | | [address] [facility], | | | | | | [place] [address] | | | | + + + [...] | | | | | | [address] [facility], | | | | | | [place] [address] | | | | + + + [...] LAB | | | | performed at [facility];[address] | | | | | | [address];[place] | | | | | | [address] | | | | + + + [...] EXTERNAL | | | | performed at [facility], [address] | | LAB | | | | [address], | | | | | | [place] [address] | | | | + + + + + + | RED CELL | 3.36 (L)Comment: Testing | 4.20 - 5.70 | EXTERNAL | | | COUNT | performed at [facility], [address] | M/uL | LAB | | | | [address], | | | | | | [place] [address] | | | | + + + + + + | Hgb | 11.1 (L)Comment: Testing | 13.2 - 17.0 | EXTERNAL | | | | performed at [facility], [address] | g/dL | LAB | | | | [address], | | | | | | [place] [address] | | | | + + + + + + | Hematocrit, | 34.0 (L)Comment: Testing | 39.0 - 50.0 % | EXTERNAL | | | POC | performed at [facility], [address] | | LAB | | | | [address], | | | | | | [place] [address] | | | | + + + + + + | MCV | 101.0 (H)Comment: | 80.0 - 100.0 fl | EXTERNAL | | | | Testing performed at | | LAB | | | | [facility], [address] | | | | | | [place] | | | | | | [address] | | | | + + + + + + | MCH | 33.1Comment: Testing | 27.0 - 34.0 pg | EXTERNAL | | | | performed at [facility], [address] | | LAB | | | | [address], | | | | | | [place] [address] | | | | + + + + + + | MCHC | 32.7Comment: Testing | 32.0 - 35.5 | EXTERNAL | | | | performed at [facility], [address] | g/dL | LAB | | | | [address], | | | | | | [place] [address] | | | | + + + + + + | RDW-CV | 59.1 (H)Comment: Testing | 37 - 53 fl | EXTERNAL | | | | performed at [facility], [address] | | LAB | | | | [address], | | | | | | [place] [address] | | | | + + + + + + | Platelet | 162Comment: Testing | 150 - 400 K/uL | EXTERNAL | | | Count | performed at [facility], [address] | | LAB | | | Plasma | [address], | | | | | | [place] [address] | | | | + + + + + + | MPV | 8.6Comment: Testing | fl | EXTERNAL | | | | performed at [facility], [address] | | LAB | | | | [address], | | | | | | [place] [address] | | | | + + + + + + | Differentia | AUTOMATEDComment: | | EXTERNAL | | | l Type | Testing performed at | | LAB | | | | [facility], [address] | | | | | | [place] | | | | | | [address] | | | | + + + + + + | % Segmented | 72.7Comment: Testing | % | EXTERNAL | | | | performed at [facility], [address] | | LAB | | | Neutrophils | [address], | | | | | | [place] [address] | | | | + + + + + + | % | 12.1Comment: Testing | % | EXTERNAL | | | Lymphocytes | performed at [facility], [address] | | LAB | | | | [address], | | | | | | [place] [address] | | | | + + + + + + | % Monocytes | 13.0Comment: Testing | % | EXTERNAL | | | | performed at [facility], [address] | | LAB | | | | [address], | | | | | | [place] [address] | | | | + + + + + + | % | 1.7Comment: Testing | % | EXTERNAL | | | Eosinophils | performed at [facility], [address] | | LAB | | | | [address], | | | | | | [place] [address] | | | | + + + + + + | % Basophils | 0.5Comment: Testing | % | EXTERNAL | | | | performed at [facility], [address] | | LAB | | | | [address], | | | | | | [place] [address] | | | | + + + + + + | Absolute | 5.9Comment: Testing | 1.9 - 7.4 K/uL | EXTERNAL | | | Segmented | performed at [facility], [address] | | LAB | | | Neutrophils | [address], | | | | | | [place] [address] | | | | + + + + + + | Absolute | 1.0Comment: Testing | 1.0 - 3.9 K/uL | EXTERNAL | | | Lymphocytes | performed at [facility], [address] | | LAB | | | | [address], | | | | | | [place] [address] | | | | + + + + + + | Absolute | 1.1 (H)Comment: Testing | 0 - 0.8 K/uL | EXTERNAL | | | Monocytes | performed at [facility], [address] | | LAB | | | | [address], | | | | | | [place] [address] | | | | + + + + + + | Absolute | 0.1Comment: Testing | 0 - 0.5 K/uL | EXTERNAL | | | Eosinophils | performed at [facility], [address] | | LAB | | | | [address], | | | | | | [place] [address] | | | | + + + + + + | Absolute | 0.0Comment: Testing | 0 - 0.1 K/uL | EXTERNAL | | | Basophils | performed at [facility], [address] | | LAB | | | | [address], | | | | | | [place] [address] | | | | + + + [...] [address], | | | | | | [place] [address] | | | | + + + + + + | K | 3.8Comment: Testing | 3.5 - 4.9 | EXTERNAL | | | | performed at [facility], [address] | mmol/L | LAB | | | | [address], | | | | | | [place] [address] | | | | + + + + + + | Cl | 105Comment: Testing | 99 - 109 mmol/L | EXTERNAL | | | | performed at [facility], [address] | | LAB | | | | [address], | | | | | | [place] [address] | | | | + + + + + + | CO2 | 28Comment: Testing | 23 - 32 mmol/L | EXTERNAL | | | | performed at [facility], [address] | | LAB | | | | [address], | | | | | | [place] [address] | | | | + + + + + + | Anion Gap | 8Comment: Testing | 5 - 20 mmol/L | EXTERNAL | | | | performed at [facility], [address] | | LAB | | | | [address], | | | | | | [place] [address] | | | | + + + + + + | Glucose, | 112 (H)Comment: Testing | 65 - 99 mg/dL | EXTERNAL | | | Fasting | performed at [facility], [address] | | LAB | | | | [address], | | | | | | [place] [address] | | | | + + + + + + | BUN | 8Comment: Testing | 8 - 25 mg/dL | EXTERNAL | | | | performed at [facility], [address] | | LAB | | | | [address], | | | | | | [place] [address] | | | | + + + + + + | Creatinine | 0.51 (L)Comment: Testing | 0.70 - 1.30 | EXTERNAL | | | | performed at [facility], [address] | mg/dL | LAB | | | | [address], | | | | | | [place] [address] | | | | + + + + + + | BUN/Creatin | 16Comment: Testing | | EXTERNAL | | | ine Ratio | performed at [facility], [address] | | LAB | | | | [address], | | | | | | [place] [address] | | | | + + + + + + | Calcium | 8.5Comment: NOTE NEW | 8.5 - 10.5 | EXTERNAL | | | | REFERENCE RANGETesting | mg/dL | LAB | | | | performed at [facility], [address] | | | | | | [address], | | | | | | [place] [address] | | | | + + + [...] | | | | | | at [facility], [address] | | | | | | [address], | | | | | | [place] [address] | | | | + + + [...] EXTERNAL | | | | performed at [facility];[address] | mmol/L | LAB | | | | [address];[place] | | | | | | [address] | | | | + + + + + + | K | 3.5Comment: Testing | 3.5 - 4.9 | EXTERNAL | | | | performed at [facility];[address] | mmol/L | LAB | | | | [address];[place] | | | | | | [address] | | | | + + + + + + | Cl | 103Comment: Testing | 99 - 109 mmol/L | EXTERNAL | | | | performed at [facility];[address] | | LAB | | | | [address];[place] | | | | | | [address] | | | | + + + + + + | CO2 | 26Comment: Testing | 23 - 32 mmol/L | EXTERNAL | | | | performed at [facility];[address] | | LAB | | | | [address];[place] | | | | | | [address] | | | | + + + + + + | Anion Gap | 13Comment: Testing | 5 - 20 mmol/L | EXTERNAL | | | | performed at [facility];[address] | | LAB | | | | [address];[place] | | | | | | [address] | | | | + + + + + + | Glucose, | 134 (H)Comment: Testing | 65 - 99 mg/dL | EXTERNAL | | | Fasting | performed at [facility];[address] | | LAB | | | | [address];[place] | | | | | | [address] | | | | + + + + + + | BUN | 9Comment: Testing | 8 - 25 mg/dL | EXTERNAL | | | | performed at [facility];[address] | | LAB | | | | [address];[place] | | | | | | [address] | | | | + + + + + + | Creatinine | 0.75Comment: Testing | 0.70 - 1.30 | EXTERNAL | | | | performed at [facility];[address] | mg/dL | LAB | | | | [address];[place] | | | | | | [address] | | | | + + + + + + | BUN/Creatin | 12Comment: Testing | | EXTERNAL | | | ine Ratio | performed at [facility];[address] | | LAB | | | | [address];[place] | | | | | | [address] | | | | + + + + + + | Calcium | 8.3 (L)Comment: NOTE NEW | 8.5 - 10.5 | EXTERNAL | | | | REFERENCE RANGETesting | mg/dL | LAB | | | | performed at [facility];[address] | | | | | | [address];[place] | | | | | | [address] | | | | + + [...] | | | | | | at [facility];[address] [place] [address] | | | | | | [facility];[place] [address] | | | | + + + [...] EXTERNAL | | | | performed at [facility];[address] | mmol/L | LAB | | | | [address];[place], [place] | | | | | | [address] | | | | + + + [...] | | | Fingerstick | performed at [facility];[address] | | LAB | | | | [address];[place] | | | | | | [address] | | | | + + + [...] 5.02 cm D-E Excursion: 1.80 cm E-F Fillmore: | | | 0.08 m/s EPSS: 0.51 [...] TV A Vishnu: 0.19 m/s TV Dec [place]: 1.11 m/s2 TV Dec Time: | | | 421.97 ms TV E Vishnu: 0.47 m/s TV E/A Ratio: 2.39 | | | [facility]: [facility] Authenticated by: VISH ACOSTA MD Report [...] | Index (A-L): 25.12 ml/m2LAAs A2C: 17.63 [id number] A-L A2C: 49.96 mlLAESV MOD A2C: | | 47.06 mlLALs A2C: 5.28 cmLAAs A4C: 18.21 pt5PNTAA A-L A4C: 56.04 mlLAESV MOD A4C: | | 48.84 mlLALs A4C: 5.02 cmD-E Excursion: 1.80 cmE-F [place]: 0.08 m/sEPSS: 0.51 | | cmHR: 50.85 BPMAV maxP.46 mmHgAV meanP.08 mmHgAV Vmax: 1.16 m/Dmitry Vmean: | | 0.83 m/Dmitry VTI: 24.68 cmAVA Vmax: 3.04 cm2AVA (VTI): 2.96 [id number] Dopp: 1.67 | | l/mwfk6USPM Dopp: 3.62 l/minHR: 49.54 BPMLVOT maxP.42 mmHgLVOT [...] 1.86 m/sTV A Vishnu: 0.19 m/sTV Dec [place]: 1.11 m/s2TV | | Dec Time: 421.97 msTV E Vishnu: 0.47 m/sTV E/A Ratio: 2.39 [facility]: | | GDAuthenticated by: [facility]COSTA [facility] Date/Time: 10-14-2014 18:41:15 | | IMPRESSION: 1. [...] | |D-E Excursion: 1.80 cm | |E-F [place]: 0.08 m/s | |EPSS: 0.51 cm | [...] A Vishnu: 0.19 m/s | |TV Dec [place]: 1.11 m/s2 | |TV Dec Time: 421.97 ms | |TV E Vishnu: 0.47 m/s | |TV E/A Ratio: 2.39 | | | |[facility]: [facility] | |Authenticated by: VISH ACOSTA MD [...] Performed At | + + + | [facility]ST 1 VIEW 10/14/2014 8:36 AM [...] + + | Rosalio, Marlon Conversion - 05/05/2019 12:20 AM PDT TONY [...] | | | 5:24AM Referring Provider Line: [phone] ID: [id number] | | + + + [...] 2014 | | 5:24AM Referring Provider Line: [phone] ID: [id number] | | | |IMPRESSION: | [...] Oct 14 2014 5:24AM Referring Provider Line: [phone] ID: [id number] | + + External Lab: [...] | | | | | [place] [address] | | | | + + + + + + | RED CELL | 2.96 (L)Comment: Testing | 4.20 - 5.70 | EXTERNAL | | | COUNT | performed at [facility], [address] | M/uL | LAB | | | | [address], | | | | | | [place] [address] | | | | + + + + + + | Hgb | 9.7 (L)Comment: Testing | 13.2 - 17.0 | EXTERNAL | | | | performed at [facility], [address] | g/dL | LAB | | | | [address], | | | | | | [place] [address] | | | | + + + + + + | Hematocrit, | 29.4 (L)Comment: Testing | 39.0 - 50.0 % | EXTERNAL | | | POC | performed at [facility], [address] | | LAB | | | | [address], | | | | | | [place] [address] | | | | + + + + + + | MCV | 99.5Comment: Testing | 80.0 - 100.0 fl | EXTERNAL | | | | performed at [facility], [address] | | LAB | | | | [address], | | | | | | [place] [address] | | | | + + + + + + | MCH | 32.7Comment: Testing | 27.0 - 34.0 pg | EXTERNAL | | | | performed at [facility], [address] | | LAB | | | | [address], | | | | | | [place] [address] | | | | + + + + + + | MCHC | 32.9Comment: Testing | 32.0 - 35.5 | EXTERNAL | | | | performed at [facility], [address] | g/dL | LAB | | | | [address], | | | | | | [place] [address] | | | | + + + + + + | RDW-CV | 59.1 (H)Comment: Testing | 37 - 53 fl | EXTERNAL | | | | performed at [facility], [address] | | LAB | | | | [address], | | | | | | [place] [address] | | | | + + + + + + | Platelet | 124 (L)Comment: Testing | 150 - 400 K/uL | EXTERNAL | | | Count | performed at [facility], [address] | | LAB | | | Plasma | [address], | | | | | | [place] [address] | | | | + + + + + + | MPV | 8.6Comment: Testing | fl | EXTERNAL | | | | performed at [facility], [address] | | LAB | | | | [address], | | | | | | [place] [address] | | | | + + + + + + | Differentia | AUTOMATEDComment: | | EXTERNAL | | | l Type | Testing performed at | | LAB | | | | [facility], [address] | | | | | | [place] | | | | | | [address] | | | | + + + + + + | % Segmented | 81.9Comment: Testing | % | EXTERNAL | | | | performed at [facility], [address] | | LAB | | | Neutrophils | [address], | | | | | | [place] [address] | | | | + + + + + + | % | 7.9Comment: Testing | % | EXTERNAL | | | Lymphocytes | performed at [facility], [address] | | LAB | | | | [address], | | | | | | [place] [address] | | | | + + + + + + | % Monocytes | 9.3Comment: Testing | % | EXTERNAL | | | | performed at [facility], [address] | | LAB | | | | [address], | | | | | | [place] [address] | | | | + + + + + + | % | 0.7Comment: Testing | % | EXTERNAL | | | Eosinophils | performed at [facility], [address] | | LAB | | | | [address], | | | | | | [place] [address] | | | | + + + + + + | % Basophils | 0.2Comment: Testing | % | EXTERNAL | | | | performed at [facility], [address] | | LAB | | | | [address], | | | | | | [place] [address] | | | | + + + + + + | Absolute | 8.0 (H)Comment: Testing | 1.9 - 7.4 K/uL | EXTERNAL | | | Segmented | performed at [facility], [address] | | LAB | | | Neutrophils | [address], | | | | | | [place] [address] | | | | + + + + + + | Absolute | 0.8 (L)Comment: Testing | 1.0 - 3.9 K/uL | EXTERNAL | | | Lymphocytes | performed at [facility], [address] | | LAB | | | | [address], | | | | | | [place] [address] | | | | + + + + + + | Absolute | 0.9 (H)Comment: Testing | 0 - 0.8 K/uL | EXTERNAL | | | Monocytes | performed at [facility], [address] | | LAB | | | | [address], | | | | | | [place] [address] | | | | + + + + + + | Absolute | 0.1Comment: Testing | 0 - 0.5 K/uL | EXTERNAL | | | Eosinophils | performed at [facility], [address] | | LAB | | | | [address], | | | | | | [place] [address] | | | | + + + + + + | Absolute | 0.0Comment: Testing | 0 - 0.1 K/uL | EXTERNAL | | | Basophils | performed at [facility], [address] | | LAB | | | | [address], | | | | | | [place] [address] | | | | + + + [...] | | | | | [place] [address] | | | | + + + + + + | K | 3.8Comment: Testing | 3.5 - 4.9 | EXTERNAL | | | | performed at [facility], [address] | mmol/L | LAB | | | | [address], | | | | | | [place] [address] | | | | + + + + + + | Cl | 109Comment: Testing | 99 - 109 mmol/L | EXTERNAL | | | | performed at [facility], [address] | | LAB | | | | [address], | | | | | | [place] [address] | | | | + + + + + + | CO2 | 22 (L)Comment: Testing | 23 - 32 mmol/L | EXTERNAL | | | | performed at [facility], [address] | | LAB | | | | [address], | | | | | | [place] [address] | | | | + + + + + + | Anion Gap | 9Comment: Testing | 5 - 20 mmol/L | EXTERNAL | | | | performed at [facility], [address] | | LAB | | | | [address], | | | | | | [place] [address] | | | | + + + + + + | Glucose, | 174 (H)Comment: Testing | 65 - 99 mg/dL | EXTERNAL | | | Fasting | performed at [facility], [address] | | LAB | | | | [address], | | | | | | [place] [address] | | | | + + + + + + | BUN | 9Comment: Testing | 8 - 25 mg/dL | EXTERNAL | | | | performed at [facility], [address] | | LAB | | | | [address], | | | | | | [place] [address] | | | | + + + + + + | Creatinine | 0.50 (L)Comment: Testing | 0.70 - 1.30 | EXTERNAL | | | | performed at [facility], [address] | mg/dL | LAB | | | | [address], | | | | | | [place] [address] | | | | + + + + + + | BUN/Creatin | 18Comment: Testing | | EXTERNAL | | | ine Ratio | performed at [facility], [address] | | LAB | | | | [address], | | | | | | [place] [address] | | | | + + + + + + | Calcium | 7.7 (L)Comment: NOTE NEW | 8.5 - 10.5 | EXTERNAL | | | | REFERENCE RANGETesting | mg/dL | LAB | | | | performed at [facility], [address] | | | | | | [facility], | | | | | | [place] [address] | | | | + + + [...] | | | | | | at [facility], [address] | | | | | | [facility], | | | | | | [place] [address] | | | | + + + [...] EXTERNAL | | | | performed at [facility] | | LAB | | | | [address];[place], [place] | | | | | | [address] | | | | + + + [...] | | | | | | at [facility];[address] | | | | | | [address];[place] [address] | | | | + + + [...] EXTERNAL | | | | performed at [facility];[address] | mmol/L | LAB | | | | [address];[place], [place] | | | | | | [address] | | | | + + + [...] Marlon Santamaria Conversion - 05/05/2019 12:20 AM [facility]ONY [id number] yearsXR | | CHEST 1 VIEW10/13/2014 3:50 [...] Rad Conversion - 05/05/2019 12:20 AM PDT KRUEGER SHAYLA yearsXR | | CHEST 1 VIEW10/13/2014 5:51 [...] | | | | | [place] [address] | | | | + + + + + + | RED CELL | 2.98 (L)Comment: Testing | 4.20 - 5.70 | EXTERNAL | | | COUNT | performed at [facility], [address] | M/uL | LAB | | | | [address], | | | | | | [place] [address] | | | | + + + + + + | Hgb | 9.7 (L)Comment: Testing | 13.2 - 17.0 | EXTERNAL | | | | performed at [facility], [address] | g/dL | LAB | | | | [address], | | | | | | [place] [address] | | | | + + + + + + | Hematocrit, | 29.8 (L)Comment: Testing | 39.0 - 50.0 % | EXTERNAL | | | POC | performed at [facility], [address] | | LAB | | | | [address], | | | | | | [place] [address] | | | | + + + + + + | MCV | 100.1 (H)Comment: | 80.0 - 100.0 fl | EXTERNAL | | | | Testing performed at | | LAB | | | | [facility], [address] [facility] | | | | | | [place] | | | | | | [address] | | | | + + + + + + | MCH | 32.5Comment: Testing | 27.0 - 34.0 pg | EXTERNAL | | | | performed at [facility], [address] | | LAB | | | | [address], | | | | | | [place] [address] | | | | + + + + + + | MCHC | 32.5Comment: Testing | 32.0 - 35.5 | EXTERNAL | | | | performed at [facility], [address] | g/dL | LAB | | | | [address], | | | | | | [place] [address] | | | | + + + + + + | RDW-CV | 60.4 (H)Comment: Testing | 37 - 53 fl | EXTERNAL | | | | performed at [facility], [address] | | LAB | | | | [address], | | | | | | [place] [address] | | | | + + + + + + | Platelet | 107 (L)Comment: Testing | 150 - 400 K/uL | EXTERNAL | | | Count | performed at [facility], [address] | | LAB | | | Plasma | [address], | | | | | | [place] [address] | | | | + + + + + + | MPV | 8.6Comment: Testing | fl | EXTERNAL | | | | performed at [facility], [address] | | LAB | | | | [address], | | | | | | [place] [address] | | | | + + + + + + | Differentia | AUTOMATEDComment: | | EXTERNAL | | | l Type | Testing performed at | | LAB | | | | [facility], [address] | | | | | | [place] | | | | | | [address] | | | | + + + + + + | % Segmented | 78.6Comment: Testing | % | EXTERNAL | | | | performed at [facility], [address] | | LAB | | | Neutrophils | [address], | | | | | | [place] [address] | | | | + + + + + + | % | 9.1Comment: Testing | % | EXTERNAL | | | Lymphocytes | performed at [facility], [address] | | LAB | | | | [address], | | | | | | [place] [address] | | | | + + + + + + | % Monocytes | 11.3Comment: Testing | % | EXTERNAL | | | | performed at [facility], [address] | | LAB | | | | [address], | | | | | | [place] [address] | | | | + + + + + + | % | 0.5Comment: Testing | % | EXTERNAL | | | Eosinophils | performed at [facility], [address] | | LAB | | | | [address], | | | | | | [place] [address] | | | | + + + + + + | % Basophils | 0.5Comment: Testing | % | EXTERNAL | | | | performed at [facility], [address] | | LAB | | | | [address], | | | | | | [place] [address] | | | | + + + + + + | Absolute | 5.6Comment: Testing | 1.9 - 7.4 K/uL | EXTERNAL | | | Segmented | performed at [facility], [address] | | LAB | | | Neutrophils | [address], | | | | | | [place] [address] | | | | + + + + + + | Absolute | 0.6 (L)Comment: Testing | 1.0 - 3.9 K/uL | EXTERNAL | | | Lymphocytes | performed at [facility], [address] | | LAB | | | | [address], | | | | | | [place] [address] | | | | + + + + + + | Absolute | 0.8Comment: Testing | 0 - 0.8 K/uL | EXTERNAL | | | Monocytes | performed at [facility], [address] | | LAB | | | | [address], | | | | | | [place] [address] | | | | + + + + + + | Absolute | 0.0Comment: Testing | 0 - 0.5 K/uL | EXTERNAL | | | Eosinophils | performed at [facility], [address] | | LAB | | | | [address], | | | | | | [place] [address] | | | | + + + + + + | Absolute | 0.0Comment: Testing | 0 - 0.1 K/uL | EXTERNAL | | | Basophils | performed at [facility], [address] | | LAB | | | | [address], | | | | | | [place] [address] | | | | + + + [...] | | | | | [place] [address] | | | | + + + + + + | K | 3.4 (L)Comment: Testing | 3.5 - 4.9 | EXTERNAL | | | | performed at [facility], [address] | mmol/L | LAB | | | | [address], | | | | | | [place] [address] | | | | + + + + + + | Cl | 112 (H)Comment: Testing | 99 - 109 mmol/L | EXTERNAL | | | | performed at [facility], [address] | | LAB | | | | [address], | | | | | | [place] [address] | | | | + + + + + + | CO2 | 19 (L)Comment: Testing | 23 - 32 mmol/L | EXTERNAL | | | | performed at [facility], [address] | | LAB | | | | [address], | | | | | | [place] [address] | | | | + + + + + + | Anion Gap | 10Comment: Testing | 5 - 20 mmol/L | EXTERNAL | | | | performed at [facility], [address] | | LAB | | | | [address], | | | | | | [place] [address] | | | | + + + + + + | Glucose, | 133 (H)Comment: Testing | 65 - 99 mg/dL | EXTERNAL | | | Fasting | performed at [facility], [address] | | LAB | | | | [address], | | | | | | [place] [address] | | | | + + + + + + | BUN | 5 (L)Comment: Testing | 8 - 25 mg/dL | EXTERNAL | | | | performed at [facility], [address] | | LAB | | | | [address], | | | | | | [place] [address] | | | | + + + + + + | Creatinine | 0.47 (L)Comment: Testing | 0.70 - 1.30 | EXTERNAL | | | | performed at [facility], [address] | mg/dL | LAB | | | | [address], | | | | | | [place] [address] | | | | + + + + + + | BUN/Creatin | 11Comment: Testing | | EXTERNAL | | | ine Ratio | performed at [facility], [address] | | LAB | | | | [address], | | | | | | [place] [address] | | | | + + + + + + | Calcium | 7.8 (L)Comment: NOTE NEW | 8.5 - 10.5 | EXTERNAL | | | | REFERENCE RANGETesting | mg/dL | LAB | | | | performed at [facility], [address] | | | | | | [facility], | | | | | | [place] [address] | | | | + + + [...] | | | | | | at [facility], [address] | | | | | | [facility], | | | | | | [place] [address] | | | | + + + [...] LAB | | | | performed at [facility];[address] | | | | | | [address];[place] | | | | | | [address] | | | | + + + [...] LAB | | | | performed at [facility];[address] | | | | | | [address];[place], [place] | | | | | | [address] | | | | + + + [...] | | | | | performed at [facility] | | | | | | [address];[place], [place] | | | | | | [address] | | | | + + + [...] | | | | | [place] [address] | | | | + + + + + + | RED CELL | 3.39 (L)Comment: Testing | 4.20 - 5.70 | EXTERNAL | | | COUNT | performed at [facility], [address] | M/uL | LAB | | | | [address], | | | | | | [place] [address] | | | | + + + + + + | Hgb | 11.1 (L)Comment: Testing | 13.2 - 17.0 | EXTERNAL | | | | performed at [facility], [address] | g/dL | LAB | | | | [address], | | | | | | [place] [address] | | | | + + + + + + | Hematocrit, | 33.5 (L)Comment: Testing | 39.0 - 50.0 % | EXTERNAL | | | POC | performed at [facility], [address] | | LAB | | | | [address], | | | | | | [place] [address] | | | | + + + + + + | MCV | 98.6Comment: Testing | 80.0 - 100.0 fl | EXTERNAL | | | | performed at [facility], [address] | | LAB | | | | [address], | | | | | | [place] [address] | | | | + + + + + + | MCH | 32.7Comment: Testing | 27.0 - 34.0 pg | EXTERNAL | | | | performed at [facility], [address] | | LAB | | | | [address], | | | | | | [place] [address] | | | | + + + [...] | | | | | [place] [address] | | | | + + + + + + | Platelet | 138 (L)Comment: Testing | 150 - 400 K/uL | EXTERNAL | | | Count | performed at [facility], [address] | | LAB | | | Plasma | [address], | | | | | | [place] [address] | | | | + + + + + + | MPV | 8.4Comment: Testing | fl | EXTERNAL | | | | performed at [facility], [address] | | LAB | | | | [address], | | | | | | [place] [address] | | | | + + + + + + | Differentia | AUTOMATEDComment: | | EXTERNAL | | | l Type | Testing performed at | | LAB | | | | [facility], [address] | | | | | | [place] | | | | | | [address] | | | | + + + + + + | % Segmented | 79.3Comment: Testing | % | EXTERNAL | | | | performed at [facility], [address] | | LAB | | | Neutrophils | [address], | | | | | | [place] [address] | | | | + + + + + + | % | 7.8Comment: Testing | % | EXTERNAL | | | Lymphocytes | performed at [facility], [address] | | LAB | | | | [address], | | | | | | [place] [address] | | | | + + + + + + | % Monocytes | 12.1Comment: Testing | % | EXTERNAL | | | | performed at [facility], [address] | | LAB | | | | [address], | | | | | | [place] [address] | | | | + + + + + + | % | 0.3Comment: Testing | % | EXTERNAL | | | Eosinophils | performed at [facility], [address] | | LAB | | | | [address], | | | | | | [place] [address] | | | | + + + + + + | % Basophils | 0.5Comment: Testing | % | EXTERNAL | | | | performed at [facility], [address] | | LAB | | | | [address], | | | | | | [place] [address] | | | | + + + + + + | Absolute | 7.2Comment: Testing | 1.9 - 7.4 K/uL | EXTERNAL | | | Segmented | performed at [facility], [address] | | LAB | | | Neutrophils | [address], | | | | | | [place] [address] | | | | + + + + + + | Absolute | 0.7 (L)Comment: Testing | 1.0 - 3.9 K/uL | EXTERNAL | | | Lymphocytes | performed at [facility], [address] | | LAB | | | | [address], | | | | | | [place] [address] | | | | + + + + + + | Absolute | 1.1 (H)Comment: Testing | 0 - 0.8 K/uL | EXTERNAL | | | Monocytes | performed at [facility], [address] | | LAB | | | | [address], | | | | | | [place] [address] | | | | + + + + + + | Absolute | 0.0Comment: Testing | 0 - 0.5 K/uL | EXTERNAL | | | Eosinophils | performed at [facility], [address] | | LAB | | | | [address], | | | | | | [place] [address] | | | | + + + + + + | Absolute | 0.0Comment: Testing | 0 - 0.1 K/uL | EXTERNAL | | | Basophils | performed at [facility], [address] | | LAB | | | | [address], | | | | | | [place] [address] | | | | + + + [...] EXTERNAL | | | | performed at [facility], [address] | | LAB | | | | [address], | | | | | | [place] [address] | | | | + + + [...] | | | | | [place] [address] | | | | + + + + + + | K | 2.8 (L)Comment: Testing | 3.5 - 4.9 | EXTERNAL | | | | performed at [facility], [address] | mmol/L | LAB | | | | [address], | | | | | | [place] [address] | | | | + + + + + + | Cl | 105Comment: Testing | 99 - 109 mmol/L | EXTERNAL | | | | performed at [facility], [address] | | LAB | | | | [address], | | | | | | [place] [address] | | | | + + + + + + | CO2 | 23Comment: Testing | 23 - 32 mmol/L | EXTERNAL | | | | performed at [facility], [address] | | LAB | | | | [address], | | | | | | [place] [address] | | | | + + + [...] | | | | | [place] [address] | | | | + + + + + + | BUN | 7 (L)Comment: Testing | 8 - 25 mg/dL | EXTERNAL | | | | performed at [facility], [address] | | LAB | | | | [address], | | | | | | [place] [address] | | | | + + + + + + | Creatinine | 0.57 (L)Comment: Testing | 0.70 - 1.30 | EXTERNAL | | | | performed at [facility], [address] | mg/dL | LAB | | | | [address], | | | | | | [place] [address] | | | | + + + + + + | BUN/Creatin | 12Comment: Testing | | EXTERNAL | | | ine Ratio | performed at [facility], [address] | | LAB | | | | [address], | | | | | | [place] [address] | | | | + + + + + + | Calcium | 7.8 (L)Comment: NOTE NEW | 8.5 - 10.5 | EXTERNAL | | | | REFERENCE RANGETesting | mg/dL | LAB | | | | performed at [facility], [address] | | | | | | [address], | | | | | | [place] [address] | | | | + + + [...] | | | | | | at [facility], [address] | | | | | | [address], | | | | | | [place] [address] | | | | + + [...] EXTERNAL | | | | performed at [facility];[address] | | LAB | | | | [address];[place] | | | | | | [address] | | | | + + + + + + | RED CELL | 3.63 (L)Comment: Testing | 4.20 - 5.70 | EXTERNAL | | | COUNT | performed at [facility];[address] | M/uL | LAB | | | | [address];[place] | | | | | | [address] | | | | + + + + + + | Hgb | 10.9 (L)Comment: Testing | 13.2 - 17.0 | EXTERNAL | | | | performed at [facility];[address] | g/dL | LAB | | | | [address];[place] | | | | | | [address] | | | | + + + + + + | Hematocrit, | 34.9 (L)Comment: Testing | 39.0 - 50.0 % | EXTERNAL | | | POC | performed at [facility];[address] | | LAB | | | | [address];[place] | | | | | | [address] | | | | + + + + + + | MCV | 96.2Comment: Testing | 80.0 - 100.0 fl | EXTERNAL | | | | performed at [facility];[address] | | LAB | | | | [address];[place] | | | | | | [address] | | | | + + + + + + | MCH | 30.0Comment: Testing | 27.0 - 34.0 pg | EXTERNAL | | | | performed at [facility];[address] | | LAB | | | | [address];[place] | | | | | | [address] | | | | + + + + + + | MCHC | 31.2 (L)Comment: Testing | 32.0 - 35.5 | EXTERNAL | | | | performed at [facility];[address] | g/dL | LAB | | | | [address];[place] | | | | | | [address] | | | | + + + + + + | RDW-CV | 58.6 (H)Comment: Testing | 37 - 53 fl | EXTERNAL | | | | performed at [facility];[address] | | LAB | | | | [address];[place] | | | | | | [address] | | | | + + + + + + | Platelet | 164Comment: Testing | 150 - 400 K/uL | EXTERNAL | | | Count | performed at [facility];[address] | | LAB | | | Plasma | [address];[place] | | | | | | [address] | | | | + + + + + + | MPV | 7.8Comment: Testing | fl | EXTERNAL | | | | performed at [facility];[address] | | LAB | | | | [address];[place] | | | | | | [address] | | | | + + + + + + | Differentia | AUTOMATEDComment: | | EXTERNAL | | | l Type | Testing performed at | | LAB | | | | [facility];[address];[place] [address] | | | | + + + + + + | % Segmented | 72.3Comment: Testing | % | EXTERNAL | | | | performed at [facility];[address] | | LAB | | | Neutrophils | [address];[place] | | | | | | [address] | | | | + + + + + + | % | 13.2Comment: Testing | % | EXTERNAL | | | Lymphocytes | performed at [facility];[address] | | LAB | | | | [address];[place] | | | | | | [address] | | | | + + + + + + | % Monocytes | 13.4Comment: Testing | % | EXTERNAL | | | | performed at [facility];[address] | | LAB | | | | [address];[place] | | | | | | [address] | | | | + + + + + + | % | 0.3Comment: Testing | % | EXTERNAL | | | Eosinophils | performed at [facility];[address] | | LAB | | | | [address];[place] | | | | | | [address] | | | | + + + + + + | % Basophils | 0.8Comment: Testing | % | EXTERNAL | | | | performed at [facility];[address] | | LAB | | | | [address];[place] | | | | | | [address] | | | | + + + + + + | Absolute | 7.0Comment: Testing | 1.9 - 7.4 K/uL | EXTERNAL | | | Segmented | performed at [facility];[address] | | LAB | | | Neutrophils | [address];[place] | | | | | | [address] | | | | + + + + + + | Absolute | 1.3Comment: Testing | 1.0 - 3.9 K/uL | EXTERNAL | | | Lymphocytes | performed at [facility];[address] | | LAB | | | | [address];[place] | | | | | | [address] | | | | + + + + + + | Absolute | 1.3 (H)Comment: Testing | 0 - 0.8 K/uL | EXTERNAL | | | Monocytes | performed at [facility];[address] | | LAB | | | | [address];[place] | | | | | | [address] | | | | + + + + + + | Absolute | 0.0Comment: Testing | 0 - 0.5 K/uL | EXTERNAL | | | Eosinophils | performed at [facility];[address] | | LAB | | | | [address];[place] | | | | | | [address] | | | | + + + + + + | Absolute | 0.1Comment: Testing | 0 - 0.1 K/uL | EXTERNAL | | | Basophils | performed at [facility];[address] | | LAB | | | | [address];[place], [place] | | | | | | [address] | | | | + + + [...] EXTERNAL LAB | | Testing performed at [facility];[address] [place] [address];[place] [address] MRSA PCR | | | NEGATIVE Testing performed at | | | [address];[place] [address] | | + + + + +---------+ [...] REMY | | | Testing performed at [facility], [address] [place], [place] | | | [address] | | + + + + +---------+ [...] EXTERNAL | | | | performed at [facility];[address] | | LAB | | | | [address];[place] | | | | | | [address] | | | | + + + [...] EXTERNAL | | | | performed at [facility];[address] | | LAB | | | | [address];[place], [place] | | | | | | [address] | | | | + + + [...] | | | Total | performed at [facility];[address] | | LAB | | | | [address];[place] | | | | | | [address] | | | | + + + + + + | Albumin | 2.8 (L)Comment: Testing | 3.6 - 5.0 g/dL | EXTERNAL | | | | performed at [facility];[address] | | LAB | | | | [address];[place] | | | | | | [address] | | | | + + + + + + | Bilirubin | 1.6 (H)Comment: Testing | 0.1 - 1.5 mg/dL | EXTERNAL | | | Total | performed at [facility];[address] | | LAB | | | | [address];[place] | | | | | | [address] | | | | + + + + + + | Bilirubin | 0.6 (H)Comment: Testing | 0.0 - 0.3 mg/dL | EXTERNAL | | | Direct | performed at [facility];[address] | | LAB | | | | [address];[place] | | | | | | [address] | | | | + + + + + + | ALP, | 138 (H)Comment: Testing | 35 - 115 U/L | EXTERNAL | | | External | performed at [facility];[address] | | LAB | | | | [address];[place] | | | | | | [address] | | | | + + + + + + | AST | 61 (H)Comment: Testing | 10 - 45 U/L | EXTERNAL | | | | performed at [facility];[address] | | LAB | | | | [address];[place] | | | | | | [address] | | | | + + + + + + | ALT | 54Comment: Testing | 10 - 65 U/L | EXTERNAL | | | | performed at [facility];[address] | | LAB | | | | [address];[place] | | | | | | [address] | | | | + + + [...] 11 October 2014. | | | FINDINGS: Registered Nurse Obstetrics is unremarkable. The patient is post interval | | | broad right frontotemporal craniectomy, with expected surgical | | | findings such as pneumocephalus, drain and edema with a crescent of | | | idamond at the margin of the interventional bed. [...] Marlon Santamaria - 05/05/2019 12:20 AM PDT HISTORY: 53 year-old male, post | | craniotomy. TECHNIQUE: Axial noncontrast head CT. Prior examination: 11 October 2014. | | FINDINGS: Registered Nurse Obstetrics is unremarkable. The patient is post interval [...] EXTERNAL | | | | performed at [facility];[address] | mmol/L | LAB | | | | [address];[place] | | | | | | [address] | | | | + + + + + + | K | 2.7 (LL)Comment: RESULT | 3.5 - 4.9 | EXTERNAL | | | | READ BACK BY:TAYA TYLER OR | mmol/L | LAB | | | | AT 2012 BY FANNY ON | | | | | | [id number] performed | | | | | | at [facility];[address];[place] [address] | | | | + + + + + + | Cl | 102Comment: Testing | 99 - 109 mmol/L | EXTERNAL | | | | performed at [facility];[address] | | LAB | | | | [address];[place] | | | | | | [address] | | | | + + + + + + | CO2 | 25Comment: Testing | 23 - 32 mmol/L | EXTERNAL | | | | performed at [facility];[address] | | LAB | | | | [address];[place] | | | | | | [address] | | | | + + + + + + | Anion Gap | 14Comment: Testing | 5 - 20 mmol/L | EXTERNAL | | | | performed at [facility];[address] | | LAB | | | | [address];[place] | | | | | | [address] | | | | + + + + + + | Glucose, | 143 (H)Comment: Testing | 65 - 99 mg/dL | EXTERNAL | | | Fasting | performed at [facility];[address] | | LAB | | | | [address];[place] | | | | | | [address] | | | | + + + + + + | BUN | 7 (L)Comment: Testing | 8 - 25 mg/dL | EXTERNAL | | | | performed at [facility];[address] | | LAB | | | | [address];[place] | | | | | | [address] | | | | + + + + + + | Creatinine | 0.68 (L)Comment: Testing | 0.70 - 1.30 | EXTERNAL | | | | performed at [facility];[address] | mg/dL | LAB | | | | [address];[place] | | | | | | [address] | | | | + + + + + + | BUN/Creatin | 10Comment: Testing | | EXTERNAL | | | ine Ratio | performed at [facility];[address] | | LAB | | | | [address];[place] | | | | | | [address] | | | | + + + + + + | Calcium | 7.3 (L)Comment: NOTE NEW | 8.5 - 10.5 | EXTERNAL | | | | REFERENCE RANGETesting | mg/dL | LAB | | | | performed at [facility];[address] | | | | | | [facility];[place], [place] | | | | | | [address] | | | | + + + [...] | | | | | | at [facility];[address] [facility] | | | | | | Blvd;[place] [address] | | | | + + + + + + + + | Specimen | + + | Blood specimen | | (specimen) | + + + +---------+ + + | Performing | Address | City/State/Zipcode | Phone Number | | Organization | | | | + +---------+ + + | EXTERNAL LAB | | | | + +---------+ + + POC ISTAT, CG8, Arterial (10/11/2014 7:48 PM PST) + [...] | | LAB | | | | [facility];[address];[place] [address] | | | | + + + + + + | PCO2 ART | 33 (L)Comment: Testing | 35 - 45 mmHg | EXTERNAL | | | | performed at [facility];[address] | | LAB | | | | [address];[place] | | | | | | [address] | | | | + + + + + + | PO2 ART | 225 (H)Comment: Testing | 80 - 105 mmHg | EXTERNAL | | | | performed at [facility] [place] | | [place] | | | | [address];[place] | | | | | | [address] | | | | + + + + + + | HCO3 ART | 28 (H)Comment: Testing | 22 - 26 mmol/L | EXTERNAL | | | | performed at [facility] [place] | | [place] | | | | [address];[place] | | | | | | [address] | | | | + + + + + + | POC | 29 (H)Comment: Testing | 23 - 27 mEq/L | EXTERNAL | | | APPEARANCE | performed at [facility] [place] | | LAB | | | UA | [address];[place] | | | | | | [address] | | | | + + + + + + | Base | 6 (H)Comment: Testing | 0 - 3 mEq/L | EXTERNAL | | | Excess, | performed at [facility] [place] | | [place] | | | Arterial | [address];[place] | | | | | | [address] | | | | + + + + + + | O2 SAT ART | 100 (H)Comment: Testing | 95 - 98 % | EXTERNAL | | | | performed at [facility] [place] | | [place] | | | | [address];[place] | | | | | | [address] | | | | + + + + + + | Sodium, POC | 138Comment: Testing | 135 - 145 mEq/L | EXTERNAL | | | | performed at [facility] [place] | | [place] | | | | [address];[place] | | | | | | [address] | | | | + + + + + + | Potassium, | 2.6 (LL)Comment: Testing | 3.5 - 5.0 mEq/L | EXTERNAL | | | POC | performed at [facility] [place] | | [place] | | | | [address];[place] | | | | | | [address] | | | | + + + + + + | Ionized | 0.98 (L)Comment: Testing | 1.12 - 1.32 | EXTERNAL | | | Calcium, | performed at [facility] [place] | mmol/L | LAB | | | POC | [address];[place] | | | | | | [address] | | | | + + + + + + | Glucose, | 146 (H)Comment: Testing | 65 - 99 mg/dL | EXTERNAL | | | POC | performed at [facility] [place] | | LAB | | | | [address];[place] | | | | | | [address] | | | | + + + + + + | Hematocrit, | 35 (L)Comment: Testing | 40.0 - 50.0 % | EXTERNAL | | | POC | performed at [facility] [place] | | LAB | | | | [address];[place] | | | | | | [address] | | | | + + + + + + | Hemoglobin, | 11.9 (L)Comment: Testing | 13.7 - 16.7 | EXTERNAL | | | POC | performed at [facility] [place] | g/dL | LAB | | | | [address];[place] | | | | | | [address] | | | | + + + [...]
--- OUTSIDE RECORDS SUMMARY | ~2019-10-02 | XMS | Encounter Summary ---
Demographics + + + | Address | [address] | | | [place] [address] | + + + | Home Phone [...] Team Providers + +------+ + | Care Team Driver Name | Role | Phone | [...] | Transcriptions | + + | Interface, Probation Officer In - 04/16/2006 1:08 AM PDT | | [address] | | [place], [place] [id number] | | [facility]OPERATION RECORDMed Rec No.: | | [id number] Date: [...] [place] done | | [place] were happy [place] splint him if [...] isgoing to follow up | | in [place], although, if cares to come back here, wewill be happy to see him in Dr. | | Rodo Maldonado, adult orthopedic clinic.Wade Villalta M.D.FARTUN/ellyoD: 02/17/2003T: | | 02/17/2003 12:31 [id number] | |OPERATIONS PERFORMED: The patient was taken [...] is | |going to follow up in [place], although, if cares to come back here, we | |will be happy to see him in Dr. Rodo Maldonado, adult orthopedic clinic. | | | | | | | |Wade Villalta M.D. | | | |Donaldo | | | | P | |[phone] | + + documented in this encounter Visit Diagnoses Not on filedocumented in this encounter"
--- OUTSIDE RECORDS SUMMARY | ~2019-10-02 | XMS | Encounter Summary ---
Demographics + + + | Address | [address] | | | [place] [address] | + + + | Home Phone | | + + + | Preferred Language | Unknown | + + + | Marital Status | | + + + | Adventism Affiliation | Unknown | + + + | Race | Unknown | + + + | Ethnic Group | Unknown | + + + Author + + + | Author | [facility] | | | and Olegarioana | + + + | Organization | [facility] | | | [...] Team Providers + +------+ + | Care Inspector Quality Assurance Name | Role | Phone | + [...] + + | 07/06/ | Telephone | [place] | Tony Yuan, | Other (cancelling | | 2019 | | Orthopedics [address] | appointment ) | | | | [address] | [facility] [address] | | | | | [place], [place] | [place] [address] | | | | | [address] | [phone] | | | | | [phone] | | | +--------+ + + + [...] | | | | | | [address] [address] | | | | | | [place] [address] | | | | | | [phone] | | | | | | | | +--------+---------+ + + + documented as of this encounter Visit Diagnoses Not on filedocumented in this encounter"
--- OUTSIDE RECORDS SUMMARY | ~2019-10-02 | XMS | Encounter Summary ---
Demographics + + + | Address | [address] | | | [place] [address] | + + + | Home Phone [...] Team Providers + +------+ + | Care Project Control Officer Name | Role | Phone | + +------+ + | Anny Ennis DO | PCP | Unavailable | + +------+ + Encounter Details +--------+------+ + + + | Date | Type | Department | Care Team | Description | +--------+------+ + + + | 03/13/ | Lab | Laboratory at [facility] | | Cirrhosis (HCC) | | 2009 | | [address] | | | | | | [place], [place] | | | | | | [address] | | | | | | [phone] | | | +--------+------+ + + + [...] [facility] | REGIONAL | | [place] [address] | LABORATORY | | [place] [address] | | + + + + + + + + | Performing | Address | City/State/Zipcode | Phone Number | | Organization | | | | + + + + + | [facility] | [address] | [place] [address] | | | LABORATORY | | | [...] | LABORATORY | | | | at [facility], | | | | | | [place], [place]. | | | | + + + + + + + + | Specimen | + + | Blood - Blood | + + + + + | Narrative | Performed At | + + + | [facility] | [facility] | | [place] [address] | REGIONAL | | [place] [address] | LABORATORY | + + + + + + + + | Performing | Address | City/State/Zipcode | Phone Number | | Organization | | | | + + + + + | [facility] | [address] | [place] [address] | | | LABORATORY | | | [...] | | | | | validated by [facility]. | | | | | | Test performed by: | | | | | | [facility] - [facility] | | | | | | Services [address] | | | | | | [place] | | | | | | [address] | | | | + + + + + + + + | Specimen | + + | Urine - Urine | + + + + + + + | Performing | Address | City/State/Zipcode | Phone Number | | Organization | | | | + + + + + | [facility] | [address] | [place], [place] | | | UNIV PTH - MANUAL | | [address] | | + + + + + [...] At | + + + | [facility] | [facility] | | [place] [address] | REGIONAL | | [place] [address] | LABORATORY | + + + + + + + + | Performing | Address | City/State/Zipcode | Phone Number | | Organization | | | | + + + + + | [facility] | [address] | [place] [address] | | | LABORATORY | | | [...] At | + + + | [facility] ([facility]) [facility] | [place] | | [place] [address] [address] [facility] | [facility] | | [place] [address] | LABORATORY | + + + + + + + + | Performing | Address | City/State/Zipcode | Phone Number | | Organization | | | | + + + + + | [facility] | [address] | [place] [address] | | | LABORATORY | | | [...] At | + + + | [facility]) [facility] | [place] | | [facility] [place] [address] | REGIONAL | | [place] [address] | LABORATORY | + + + + + + + + | Performing | Address | City/State/Zipcode | Phone Number | | Organization | | | | + + + + + | [facility] | [address] | [place] [address] | | | LABORATORY | | | [...] by | | | | | | [employer], | | | | | | | | | | | | [address] [facility] [address] | | | | | | [place] [address] | | | | | | [phone] | | | | | | | | | | | | [email or web address], | | | | | | Mag[employer] [...] [facility] | [address] | [place], [place] | | | UN[facility] | | [address] | | + + + + + [...] | + + + | [facility] ([facility]) [facility] | [place] | | [place] [address] | DEPARTMENT | | [place] [address] | PATHOLOGY | + + + + + + + + | Performing | Address | City/State/Zipcode | Phone Number | | Organization | | | | + + + + + | [facility] DEPARTMENT OF | [address] | [place] [address] | | | PATHOLOGY | [address] [...] | + + + + + | [facility] DEPARTMENT OF | [address] | [place] [address] | | | PATHOLOGY | [address] | | | + + + + + INR (03/13/2010 9:50 AM PDT) + + + + + + | Component | Value | Ref Range | Performed | Pathologist | | | | | At | Signature | + + + + + + | INR | 1.19Comment: | 0.90 - 1.20 INR | [facility] | | | | INR Therapeutic [...] | + + + + + | [facility] | [address] | [place] [address] | | | PATHOLOGY | [address] [...] | | | DEPARTMENT | | | [place] | | | OF | | | [...] | + + + + + | [facility] | [address] | [place] [address] | | | PATHOLOGY | [address] | | | + + + + + documented in this encounter Visit Diagnoses + + | Diagnosis | + + | 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
--- OUTSIDE RECORDS SUMMARY | ~2019-10-02 | XMS | Clinical Summary ---
Demographics + + + | Address | [address] | | | [place] [address] | + + + | Home Phone [...] Team Providers + +------+ + | Care Grades 6 Through 8 Teacher Name | Role | Phone | [...] fluids, | | vancomycin, and cefepime at [facility], now hemodynamically | | stable- Has urinary source, so will treat with IV ceftriaxone and | | await cultures from [facility] | + + + + + + [...] planning to get him into SNF on [facility] | | reservation | + + + + + + | Hypokalemia | 08/09/20 | | | | 15 | 9 | + + + + + + | Last Assessment & Plan: - Reportedly has had some diarrhea, | | unclear how his nutrition has been- K and Mag repleted at [facility] | | [facility] recheck now | + + + + [...] (cancelling | | 2018 | | | MD | appointment ) | +--------+ + + + + from [...] + + + + Plan of Treatment +--------+---------+ + + + | Date | Type | Specialty | Care Team | Description | +--------+---------+ + + + | 10/16/ | Office | Orthopedic Surgery | David Lux, | | | 2020 | Visit | | [place] [address] | | | | | | [address] [facility] [address] | | | | | | [place] [address] | | | | | | [phone] | | | | | | | | +--------+---------+ + + + + + + + + | Health Maintenance | Due Date | Last Done | Comments | + + + + + | Hepatitis C | | | | | Screening | 0 | | | + + + + + | Vaccine: | | 06/30/2018 | | | Dtap/Tdap/Td (1 - | 1 | | | | Tdap) | | [...] [place] | | | 223.58 | | [id number]: Qty: 1 | | Yaw | SYNTHES - | | | 1 / / | | on 06/19/2019 by Kwabena, | | | SYNT | | | | | MD Tony at [facility] | | | | | | | | [facility] | | | | | | | + +-------+--------+ +--------+--------+--------+ | Screw Crtx Slf-Tp Ss 3.5x20mm | Screw | Right: | JJS DEPUY | | | 204.82 | | - [id number]: Qty: | | Ulna | SYNTHES - | | | / / | | 3 on 06/19/2019 by Kwabena, | | | SYNT | | | | | MD Tony at [facility] | | | | | | | | [facility] | | | | | | | + +-------+--------+ +--------+--------+--------+ | Screw Crtx Slf-Tp Ss 3.5x22mm | Screw | Right: | JJHCS DEPUY | | | 204.82 | | - [id number]: Qty: | | Ulna | SYNTHES - | | | 2 / / | | 2 on 06/19/2019 by Kwabena, | | | SYNT | | | | | MD Tony at [facility] | | | | | | | | [facility] | | | | | | | + +-------+--------+ +--------+--------+--------+ | Screw Crtx Slf-Tp Ss 3.5x24mm | Screw | Right: | JJHCS DEPUY | | | 204.82 | | - [id number]: Qty: | | Ulna | SYNTHES - | | | 4 / / | | 1 on 06/19/2019 by Kwabena, | | | SYNT | | | | | MD Tony at [facility] | | | | | | | | [facility] | | | | | | | + +-------+--------+ +--------+--------+--------+ | Screw Crtx Slf-Tp 2.7x18mm - | Screw | Right: | JJHCS DEPUY | | | 202.81 | | [id number]: Qty: 1 | | Ulna | SYNTHES - | | | 8 / / | | on 06/19/2019 by Kwabena, | | | SYNT | | | | | MD Tony at [facility] | | | | | | | | [facility] | | | | | | | + +-------+--------+ +--------+--------+--------+ | Duragen 5"X7" - | | | NA UNKNOWN | | 01/18/ | [id number] | | [id number]: Qty: 1 on | | | | | 2016 | / | | 10/11/2014 by Arlette, | | | | | | /[id number] | | Anthony HENRIQUEZ MD | | | | | | 21 | + +-------+--------+ +--------+--------+--------+ | Algrft Dura Durgn Mtrx 3x3 | | Right: | INTEGRA | | 08/27/ | ID-330 | | Bx5 - [id number]: Qty: | | Brain | NEUROSCIENC | | 2016 | 5 / | | 1 on 05/28/2015 by Earl, | | | FRANCK - MALIKA | | | /[id number] | | Gloria Baumann MD | | | | | | 52 | + +-------+--------+ +--------+--------+--------+ | Mesh Grid Hcd 11x7.5 | | Right: | MEDTRONIC - | | | 015- | | - - | | Brain | MEDT | | | 01- / | | [id number]: Qty: 1 on | | | | | | / | | 05/28/2015 by Gloria Elliott | | | | | | | Jaylene Baumann MD | | | | | | | + +-------+--------+ +--------+--------+--------+ | Plate Dbl Y 3h 5mm - | | Right: | MEDTRONIC - | | | 015- | | [id number]: Qty: 2 on | | Brain | MEDT | | | 7 / | | 05/28/2015 by Gloria Elliott | | | | | | /[id number] | | L, MD | | | | | | 98 | + +-------+--------+ +--------+--------+--------+ | Screw S/Tap 1.6x4.0 - | | Right: | MEDTRONIC - | | | [id number] | | [id number]: Qty: 14 on | | Brain | MEDT | | | 0 / / | | 05/28/2015 by Gloria Elliott | | | | | | | | L, MD | | | | | | | + +-------+--------+ +--------+--------+--------+ | Plate Dogbone 8mm - | | Right: | MEDTRONIC - | | | 015-04 | | [id number]: Qty: 1 on | | Brain | MEDT | | | 2 / | | 05/28/2015 by Gloria Elliott | | | | | | /[id number] | | L, MD | | | | | | 58 | + +-------+--------+ +--------+--------+--------+ | Screw S/Tap 1.6x4.0 - | | | MEDTRONIC - | | | [id number] | | [id number]: Qty: 8 on | | | MEDT | | | 0 | | 05/29/2015 by Gloria Elliott | | | | | | /[id number] | | MD Ibis | | | | | | 40 / | + +-------+--------+ +--------+--------+--------+ | Algrft Dura Durgn Mtrx 3x3 | | | INTEGRA | | 08/20/ | ID-330 | | Bx5 - [id number]: Qty: | | | NEUROSCIENC | | 2016 | 5 | | 1 on 05/29/2015 by Earl, | | | ES - INNE | | | /[id number] | | Gloria Baumann MD | | | | | | 5 | | | | | | | | /[id number] | | | | | | | [...] +---------+--------+ | [place]ICAID [place] | MEDICA | [id number] | 09/20/19 | [phone] | | Medica | | | ID [place] | | 18-Pre | 2 | | id | | | PLUS | | sent | | | | + +--------+ +--------+ +---------+--------+ | [facility] | IHS | [id number] | 03/21/19 | | | Indemn | [...] Person | Self | [birth year] | [address] | | [address] | al/Fam | | 1961 | [phone] | [place], | | | [place] | | | 7 (Home) | [place] [address] | + +--------+ +--------+ + + Advance Directives + + + + + | Type | Date Recorded | Patient | Explanation | | | | Client Services Manager | | + + + + + | Power of | | | | | Abalone Fisherman | | | | + + + [...]
--- OUTSIDE RECORDS SUMMARY | ~2019-10-02 | XMS | Encounter Summary ---
Demographics + + + | Address | [address] | | | [place] [address] | + + + | Home Phone | | + + + | Preferred Language | Unknown | + + + | Marital Status | | + + + | Yarsani Affiliation | Unknown | + + + | Race | Unknown | + + + | Ethnic Group | Unknown | + + + Author + + + | Author | [facility] | | | and Olegarioana | + + + | Organization | [facility] | | [...] Team Providers + +------+ + | Care Defense Attorney Name | Role | Phone | + +------+ + PCP | Unavailable | + +------+ + Encounter Details +--------+ + + + + | Date | Type | Department | Care Team | Description | +--------+ + + + + | 11/12/ | Hospital | [facility] | Rodo Draper, | | | 2008 - | Encounter | MED CTR ICU [address] | [address] | | | | | [place], | [place], [place] | | | 11/17/ | | [place] [address] | [address] | | | 2008 | | [phone] | [phone] | | | | | | | [...] | | | | | [place] [address] | | | | | | [phone] | | | | | | | | +--------+---------+ + + + documented as of this encounter Visit Diagnoses Not on filedocumented in this encounter"
--- OUTSIDE RECORDS SUMMARY | ~2019-10-02 | XMS | Clinical Summary ---
Demographics + + + | Address | [address] | | | [place] [address] | + + + | Home Phone | | + + + | Preferred Language | Unknown | + + + | Marital Status | | + + + | Gnosticist Affiliation [...] Team Providers + +------+ + | Care It Systems Analyst Name | Role | Phone | [...] fluids, | | vancomycin, and cefepime at [facility], now hemodynamically | | stable- Has urinary source, so will treat with IV ceftriaxone and | | await cultures from [facility] | + + + + + + [...] planning to get him into SNF on [facility] | | reservation | + + [...] | | | | | | [facility] [address] | | | | | | [place] [address] | | | | | | [phone] | | | | | | | [...] [place]CCAIN | | | 223.58 | | [id number]: Qty: 1 | | Yaw | SYNTHES - | | | 1 / / | | on 06/19/2019 by Kwabena, | | | SYNT | | | | | MD Tony at [facility] | | | | | | | | [facility] | | | | | | | + +-------+--------+ +--------+--------+--------+ | Screw Crtx Slf-Tp Ss 3.5x20mm | Screw | Right: | JJS DEPUY | | | 204.82 | | - [id number]: Qty: | | Ulna | SYNTHES - | | | / / | | 3 on 06/19/2019 by Kwabena, | | | SYNT | | | | | MD Tony at [facility] | | | | | | | | [facility] | | | | | | | + +-------+--------+ +--------+--------+--------+ | Screw Crtx Slf-Tp Ss 3.5x22mm | Screw | Right: | JJHCS DEPUY | | | 204.82 | | - [id number]: Qty: | | Ulna | SYNTHES - | | | 2 / / | | 2 on 06/19/2019 by Kwabena, | | | SYNT | | | | | MD Tony at [facility] | | | | | | | | [facility] | | | | | | | + +-------+--------+ +--------+--------+--------+ | Screw Crtx Slf-Tp Ss 3.5x24mm | Screw | Right: | JJHCS DEPUY | | | 204.82 | | - [id number]: Qty: | | Ulna | SYNTHES - | | | 4 / / | | 1 on 06/19/2019 by Kwabena, | | | SYNT | | | | | MD Tony at [facility] | | | | | | | | [facility] | | | | | | | + +-------+--------+ +--------+--------+--------+ | Screw Crtx Slf-Tp 2.7x18mm - | Screw | Right: | JJHCS DEPUY | | | 202.81 | | [id number]: Qty: 1 | | Ulna | SYNTHES - | | | 8 / / | | on 06/19/2019 by Kwabena, | | | SYNT | | | | | MD Tony at [facility] | | | | | | | | [facility] | | | | | | | + +-------+--------+ +--------+--------+--------+ | Duragen 5"X7" - | | | NA UNKNOWN | | 01/18/ | [id number] | | [id number]: Qty: 1 on | | | | | 2016 | / | | 10/11/2014 by Arlette, | | | | | | /[id number] | | Anthony HENRIQUEZ MD | | | | | | 21 | + +-------+--------+ +--------+--------+--------+ | Algrft Dura Durgn Mtrx 3x3 | | Right: | INTEGRA | | 08/27/ | ID-330 | | Bx5 - [id number]: Qty: | | Brain | NEUROSCIENC | | 2016 | 5 / | | 1 on 05/28/2015 by Earl, | | | FRANCK - MALIKA | | | /[id number] | | Gloria Baumann MD | | | | | | 52 | + +-------+--------+ +--------+--------+--------+ | Mesh Grid Hcd 11x7.5 | | Right: | MEDTRONIC - | | | 015- | | - - | | Brain | MEDT | | | 01- / | | [id number]: Qty: 1 on | | | | | | / | | 05/28/2015 by Gloria Elliott | | | | | | | Jaylene Baumann MD | | | | | | | + +-------+--------+ +--------+--------+--------+ | Plate Dbl Y 3h 5mm - | | Right: | MEDTRONIC - | | | 015- | | [id number]: Qty: 2 on | | Brain | MEDT | | | 7 / | | 05/28/2015 by Gloria Elliott | | | | | | /[id number] | | L, MD | | | | | | 98 | + +-------+--------+ +--------+--------+--------+ | Screw S/Tap 1.6x4.0 - | | Right: | MEDTRONIC - | | | [id number] | | [id number]: Qty: 14 on | | Brain | MEDT | | | 0 / / | | 05/28/2015 by Gloria Elliott | | | | | | | | L, MD | | | | | | | + +-------+--------+ +--------+--------+--------+ | Plate Dogbone 8mm - | | Right: | MEDTRONIC - | | | 015-04 | | [id number]: Qty: 1 on | | Brain | MEDT | | | 2 / | | 05/28/2015 by Gloria Elliott | | | | | | /[id number] | | L, MD | | | | | | 59 | + +-------+--------+ +--------+--------+--------+ | Screw S/Tap 1.6x4.0 - | | | MEDTRONIC - | | | [id number] | | [id number]: Qty: 8 on | | | MEDT | | | 0 | | 05/29/2015 by Gloria Elliott | | | | | | /[id number] | | MD Ibis | | | | | | 40 / | + +-------+--------+ +--------+--------+--------+ | Algrft Dura Durgn Mtrx 3x3 | | | INTEGRA | | 08/20/ | ID-330 | | Bx5 - [id number]: Qty: | | | NEUROSCIENC | | 2016 | 5 | | 1 on 05/29/2015 by Earl, | | | ES - INNE | | | /[id number] | | Gloria Baumann MD | | | | | | 5 | | | | | | | | /[id number] | | | | | | | [...] +---------+--------+ | MEDICAID [place] | MEDICA | [id number] | 09/20/19 | [phone] | | Medica | | | ID [place] | | 18-Pre | 2 | | id | | | PLUS | | sent | | | | + +--------+ +--------+ +---------+--------+ | [facility] | IHS | [id number] | 03/21/19 | | | Indemn | [...] Person | Self | [birth year] | | [address] | | rachelle Ring | al/Fam | | 1961 | [phone] | [place], | | | [place] | | | 7 (Home) | [place] [address] | + +--------+ +--------+ + + Advance Directives + + + + + | Type | Date Recorded | Patient | Explanation | | | | Global Account Director | | + + + + + | Power of | | | | | Moisture Tester | | | | + + + [...]
--- OUTSIDE RECORDS SUMMARY | ~2019-10-02 | XMS | Encounter Summary ---
Demographics + + + | Address | [address] | | | [place] [address] | + + + | Home Phone [...] Team Providers + +------+ + | Care Carpenter General Name | Role | Phone | + +------+ + PCP | Unavailable | + +------+ + Encounter Details +--------+ + + + + | Date | Type | Department | Care Team | Description | +--------+ + + + + | 03/25/ | Abstract | [facility] | Azeem Dietrich | | | 2010 | | [place] [address] [address] | | | | [address] | [place], [place] | | | | | Mailcode: [id number] | [address] | | | | | [facility] | [phone] | | | | | and [address], | | | | | | [address] | | | | | | [place], [place] | | | | | | [address] | | | | | | [phone] | | | +--------+ + + + [...]
--- OUTSIDE RECORDS SUMMARY | ~2019-10-02 | XMS | Encounter Summary ---
Demographics + + + | Address | [address] | | | [place] [address] | + + + | Home Phone [...] Author + + + | Author | [facility] | + + + | Organization | [facility] | + + + | Address [...] Team Providers + +------+ + | Care Attendance Officer Name | Role | Phone | [...] | | | | | | [place] [address], | | | | | | [place] [address] | | | +--------+ + + + [...] | | Patient: EVANS ASTORGA Med Rec: [id number] Sex M Bdate: 1960 | | Date/Time Data | | Entered Into [facility] | | Anesth PostOp | | Surgery Date [id number] 02/19/03 10:45 | | Anesthesiologist BARRETT HELLER 02/19/03 10:45 | | | + + documented in this encounter Visit Diagnoses Not on filedocumented in this encounter"
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
--- OUTSIDE RECORDS SUMMARY | ~2019-10-02 | XMS | Encounter Summary ---
Demographics + + + | Address | [address] | | | [place] [address] | + + + | Home Phone [...] Team Providers + +------+ + | Care Furniture Sander Name | Role | Phone | + [...] | | | | | Dyana Baldev [place], | | | | | | [place] [address] | | | | | | [phone] | | | +--------+ + + + [...]
--- OUTSIDE RECORDS SUMMARY | ~2019-10-02 | XMS | Encounter Summary ---
Demographics + + + | Address | [address] | | | [place] [address] | + + + | Home Phone | | + + + | Preferred Language | Unknown | + + + | Marital Status | Single | + + + | Taoist Affiliation [...] Providers + +------+ + | Care Director Business Management Name | Role | Phone | + +------+ + PCP | Unavailable | + +------+ + Encounter Details +--------+ + + + + | Date | Type | Department | Care Team | Description | +--------+ + + + + | 02/17/ | Results | Orthopaedics at | [place], | | | 2002 | Only | [facility] [address] | MD Manuelito | | | | | [address] | | | | | | Mailcode: PV430 | | | | | | [facility] | | | | | | [place], [place] | | | | | | [address] | | | | | | [phone] | | | +--------+ + + + [...]
--- OUTSIDE RECORDS SUMMARY | ~2019-10-02 | XMS | Encounter Summary ---
Demographics + + + | Address | [address] | | | [place] [address] | + + + | Home Phone [...] Team Providers + +------+ + | Care Drupal Programmer Name | Role | Phone | + [...] + + | 09/23/ | Emergency | [facility] Emergency | | | | 2009 | | Department [address] | | | | | | [address] | | | | | | [facility] | | | | | | [place], [place] | | | | | | [address] | | | | | | [phone] | | | +--------+ + + + [...]
--- OUTSIDE RECORDS SUMMARY | ~2019-10-02 | XMS | Clinical Summary ---
Demographics + + + | Address | [address] | | | [place] [address] | + + + | Home Phone | | + + + | Preferred Language | Unknown | + + + | Marital Status | | + + + | Holiness Affiliation | Unknown | + + + | Race | Unknown | + + + | Ethnic Group | Unknown | + + + Author + + + | Author | [email or web address] (Historical as of | | | 05-06-19) | + + + | Organization | [email or web address] (Historical as of | | | 05-06-19) | + + + | Address | Unknown | + + + | Phone | Unavailable | + + + Support + + + + + | Name | Relationship | Address | Phone | + + + + + | Jay Jay Fortune | ECON | [address] | | | | | [place] | | | | | [address] | | + + + + + | Teressa Fortune | ECON | [place] | | | | | [address] | | + + + + + Care Team Providers + +------+ + | Care Pump Service Supervisor Name | Role | Phone | [...] | | [employer] | | 01/18/ | [id number] | | [id number]: Qty: 1 on | | | | | 2016 | / | | 10/11/2014 by Arlette, | | | | | | /[id number] | | Anthony HENRIQUEZ MD | | | | | | 21 | + +------+--------+ +--------+--------+--------+ | Algrft Dura Durgn Mtrx 3x3 | | Right: | [employer] | | 08/27/ | ID-[id number] | | Bx5 - [id number]: Qty: | | Brain | NEUROSCIENC | | 2016 | 5 / | | 1 on 05/28/2015 by Earl, | | | FRANCK - INNE | | | /[id number] | | Gloria Baumann MD | | | | | | 52 | + +------+--------+ +--------+--------+--------+ | Mesh Grid Hcd 11x7.5 | | Right: | [employer] - | | | 015-20 | | - - | | Brain | MEDT | | | - / | | [id number]: Qty: 1 on | | | | | | / | | 05/28/2015 by Gloria Elliott | | | | | | | | L, MD | | | | | | | + +------+--------+ +--------+--------+--------+ | Plate Dbl Y 3h 5mm - | | Right: | [employer] - | | | 015-23 | | [id number]: Qty: 2 on | | Brain | MEDT | | | 7 / | | 05/28/2015 by Gloria Elliott | | | | | | /[id number] | | L, MD | | | | | | 98 | + +------+--------+ +--------+--------+--------+ | Screw S/Tap 1.6x4.0 - | | Right: | [employer] - | | | [id number] | | [id number]: Qty: 14 on | | Brain | MEDT | | | 0 / / | | 05/28/2015 by Gloria Elliott | | | | | | | | L, MD | | | | | | | + +------+--------+ +--------+--------+--------+ | Plate Dogbone 8mm - | | Right: | [employer] - | | | 015-04 | | [id number]: Qty: 1 on | | Brain | MEDT | | | 2 / | | 05/28/2015 by Gloria Elliott | | | | | | /[id number] | | MD Ibis | | | | | | 58 | + +------+--------+ +--------+--------+--------+ | Screw S/Tap 1.6x4.0 - | | | [employer] - | | | [id number] | | [id number]: Qty: 8 on | | | MEDT | | | 0 | | 05/29/2015 by Gloria Elliott | | | | | | /[id number] | | MD Ibis | | | | | | 40 / | + +------+--------+ +--------+--------+--------+ | Algrft Dura Durgn Mtrx 3x3 | | | [employer] | | 08/20/ | ID-330 | | Bx5 - [id number]: Qty: | | | NEUROSCIENC | | 2016 | 5 | | 1 on 05/29/2015 by Earl, | | | FRANCK - MALIKA | | | /[id number] | | Gloria Baumann MD | | | | | | 5 | | | | | | | | /[id number] | | | | | | | [...] +------+-------+ + | MEDICAID | MEDICA | [id number] | | | [address] | | | [place] | | | | [place], [place] | | | [place] | | | | [address] | + +--------+ +------+-------+ + | [facility] | YELLOW | [id number] | | | | | PLANS | [...] | Self [birth year] Home: | [address] | | | al/Fam | | 1961 | [phone] | [place], | | | ryan | | | [address] | [place] [address] | + +--------+ +--------+ + +
--- OUTSIDE RECORDS SUMMARY | ~2019-10-02 | XMS | Encounter Summary ---
Demographics + + + | Address | [address] | | | [place] [address] | + + + | Home Phone [...] Team Providers + +------+ + | Care Chief Credit Officer Name | Role | Phone | + +------+ + PCP | Unavailable | + +------+ + Encounter Details +--------+ + + + + | Date | Type | Department | Care Team | Description | +--------+ + + + + | 06/22/ | Hospital | [facility] | Sandip Hall MD | | | 2008 - | Encounter | [facility] | [address] | | | | | MED [address] [place] [address] S | [place] [address] | | | 06/23/ | | [address] | [phone] | | | 2008 | | [place], [place] | | | | | | [address] | Elizabeth Galan MD | | | | | [phone] | [address] | | | | | | [address] [place], | | | | | | [place] [address] | | | | | | [phone] | | +--------+ + + + + [...] MEDICAL HISTORY: The patient is a 48-year-old [place] with a long history of known liver cirrhosis, end-stage liver disease secondary to alcoholism and hepatitis B and history of drug abuse who came into the emergency department in [place] with hepatic encephalopathy, having been at the [facility] visiting with his grandmother, found to be [...] needs to get back [facility] and to return to his grandmother. [...] and was discharged to [facility] to [facility], which he promises me he will [...] this time until cleared by his primary health care analyst. I spent 46 minutes seeing patient, coordinating discharge, and attempting to delinquency counselor him into staying. _ TOBIN JAVIER MD D: Yoselyn Jun 23 16:37:54 2008 EST T: Yoselyn Jun 23 23:55:09 2008 EST Authenticated by Tobin Javier MD On 06/24/2009 06:22:14 AM [facility] - 06/23/2009 12:00 AM PDT documented [...] | | | | | [address] [facility] [address] | | | | | | [place] [address] | | | | | | [phone] | | | | | | | [...] PORTABLE DATE OF EXAM: 06/22/2009 INDICATION: | [facility] | | -weakness/fatigue FINDINGS: The heart and mediastinal contour | | | appear unremarkable. There is no acute infiltrate or consolidation. | | | There is no apparent pneumothorax or pleural effusion. The | | | lucency in the right lateral sulcus appears related to an artifact. | | | There is mild bony spurring in the AC joint. VALIER EXAM NUMBER: | | | [id number] CHEST 1V [id number] | | + + + + + [...] spurring in the AC joint. | | VALIER EXAM NUMBER: [id number] CHEST 1V VIR=[id number] | | IMPRESSION: | | IMPRESSION: No [...]
--- OUTSIDE RECORDS SUMMARY | ~2019-10-02 | XMS | Encounter Summary ---
Demographics + + + | Address | [address] | | | [place] [address] | + + + | Home Phone [...] Team Providers + +------+ + | Care Proposal Rep Name | Role | Phone | + [...] Ave | | | | | | [facility] [place] | Mailcode: | | | | | | [address] | [facility] | | | | | | Phone: | for Health | | | | | | [phone] | and Healing, | | | | | | Fax: | [address] | | | | | | [phone] | [place], [place] | | | | | | | [address] | | | | | | | Phone: | | | | | | | [phone] | | | | | | | Fax: | | | | | | | [phone] | +--------+--------+ + + + + Encounter [...] | | [address] | Ave [place], [place] | (HCC) | | | | Mailcode: OC8D | [address] | | | | | [facility] | [phone] | | | | | and [address], | | | | | | [address] | | | | | | [place], [place] | | | | | | [address] | | | | | | [phone] | | | +--------+---------+ + + + [...] [facility] | REGIONAL | | [place] [address] [facility] | LABORATORY | | [place] [address] | | + + + + + + + + | Performing | Address | City/State/Zipcode | Phone Number | | Organization | | | | + + + + + | [facility] | [address] | [place] [address] | | | LABORATORY | | | [...] Hospital, | | | | | | [place], [place]. | | | | + + + + + + + + | Specimen | + + | Blood - Blood | + + + + + | Narrative | Performed At | + + + | [facility] | [facility] | | [facility]erman[facility] [address] | REGIONAL | | [place] [address] | LABORATORY | + + + + + + + + | Performing | Address | City/State/Zipcode | Phone Number | | Organization | | | | + + + + + | [facility] | [address] | [place] [address] | | | LABORATORY | | | [...] by: | | | | | | [facility] | | | | | | Services [address] [place] [address] | | | | | | [place] | | | | | | [address] | | | | + + + + + + + + | Specimen | + + | Urine - Urine | + + + + + + + | Performing | Address | City/State/Zipcode | Phone Number | | Organization | | | | + + + + + | [facility] | [address] | [place], [place] | | | UN[facility] | | [address] | | + + + + + [...] [facility] | [facility] | | [place] [address] | REGIONAL | | [place] [address] | LABORATORY | + + + + + + + + | Performing | Address | City/State/Zipcode | Phone Number | | Organization | | | | + + + + + | [facility] | [address] | [place] [address] | | | LABORATORY | | | [...] Way Lab) Mun[facility] | [facility] | | [place] [address] [facility] | REGIONAL | | [place] [address] | LABORATORY | + + + + + + + + | Performing | Address | City/State/Zipcode | Phone Number | | Organization | | | | + + + + + | [facility] | [address] | [place] [address] | | | LABORATORY | | | [...] At | + + + | [facility] | [facility] | | [place] [address] [address] [facility] [facility] | REGIONAL | | [place] [address] | LABORATORY | + + + + + + + + | Performing | Address | City/State/Zipcode | Phone Number | | Organization | | | | + + + + + | [facility] | [address] | [place] [address] | | | LABORATORY | | | [...] by | | | | | | [employer], | | | | | | | | | | | | [address] [facility] | | | | | | [place] [facility] [address] | | | | | | [phone] | | | | | | | | | | | | [email or web address], | | | | | | Mag[facility] [...] [facility] | [address] | [place], [place] | | | [facility] | | [address] | | + + + + + [...] At | + + + | [facility] | [facility] | | [facility] [place] [address] [address] [facility] [facility] | DEPARTMENT OF | | [place] [address] | PATHOLOGY | + + + + + + + + | Performing | Address | City/State/Zipcode | Phone Number | | Organization | | | | + + + + + | [facility] DEPARTMENT OF | [address] | [place] [address] | | | PATHOLOGY | [address] [...] | + + + + + | [facility] DEPARTMENT OF | [address] | [place] [address] | | | PATHOLOGY | [address] | | | + + + + + INR (03/13/2010 9:50 AM PDT) + + + + + + | Component | Value | Ref Range | Performed | Pathologist | | | | | At | Signature | + + + + + + | INR | 1.19Comment: | 0.90 - 1.20 INR | [facility] | | | | INR Therapeutic ranges [...] | + + + + + | [facility] | [address] [facility] [address] | [place] [address] | | | PATHOLOGY | [address] [...] | | | DEPARTMENT | | | [place] | | | OF | | | [...] | + + + + + | [facility] | [address] | [place] [address] | | | PATHOLOGY | [address] [...]
--- OUTSIDE RECORDS SUMMARY | ~2019-10-02 | XMS | Encounter Summary ---
Demographics + + + | Address | [address] | | | [place] [address] | + + + | Home Phone [...] Team Providers + +------+ + | Care Process Maintenance Technician Name | Role | Phone | + +------+ + PCP | Unavailable | + +------+ + Encounter Details +--------+ + + + + | Date | Type | Department | Care Team | Description | +--------+ + + + + | 08/30/ | Hospital [facility] | | | | [facility] | Encounter | MED [facility] GENERIC OP | | | | | | CONV DEPT [address] | | | | | | [place], | | | | | | [place] [address] | | | | | | [phone] | | | +--------+ + + + [...] | | | | | [place] [address] | | | | | | [phone] | | | | | | | | +--------+---------+ + + + documented as of this encounter Visit Diagnoses Not on filedocumented in this encounter"
--- OUTSIDE RECORDS SUMMARY | ~2019-10-02 | XMS | Encounter Summary ---
Demographics + + + | Address | [address] | | | [place] [address] | + + + | Home Phone | | + + + | Preferred Language | Unknown | + + + | Marital Status | | + + + | Lutheran Affiliation [...] Team Providers + +------+ + | [facility] Name | Role | Phone | + [...] Frequent falls; | | 10/29/ | | [place], [place] | [place] [address] | Seizure ([facility]); | | 2014 | | [address] | [phone] | Alcohol withdrawal | | | | [phone] | | (HCC); Cerebral | | | [...] 1127 Date of Service: 11/12/141123 Status: Signed Baggage Porter: Cecilio Bravo MD (Physician) [facility] Service: Hospitalist Discharge Summary Date of Admission: [...] and multiple falls. Per ED report from [facility]: he was drinking earlier today at home and fell twice. He went to bed and then he was noted to be having what they thought was seizure activity and th ey could not wake him and called EMS. He was taken to the ED at [facility] in [place] then transferred to the ED here for [...] and multiple falls who was transferred from [facility] due to a fall, seizures [...] placement to improve s trength and mobility. tennis net maker are working on finding placement which may take few days, however if accepted then can be discharged for rehabilitation Events Overnight: 2/2 pt still somewhat confused, thought he was in [place]. He knew that he fell, but didn [...] scussion. CM routed updated medical notes to [facility] and [place]. PT recommending SNF. Lewis Christy spoke w/ Tyler at [facility] and Mary Beth at [place], efaxed updated medical information, bot h are [...] at this time; planned for placement in [place] once patient is off sitter for 48 hrs. Otherwise patient continues to interact appropriately at this time and no impulsiveness is shown. Patient is mostly in chair or in bed and sleeping. 10/27 pt is alert today, no complications. Continue with PT. Pt without sitter. Pending place ment still. 10/28 planning re-evaluation of patient's status for admission to [place]. Pt otherwise is not impulsive, mostly calm [...] FOR BLEED; Surgeon: Anthony Chong MD; Location: [facility] IN OR; Service: Neurosurgery; Laterality: [...] on file. Follow up: Anthony Chong MD [address] [place] [address] Call right away to schedule an appointment [...] are the prescriptions that you need to worm picker. You may get the following medications [...] 10/29/141122 Date of Service: 10/29/141122 Status: Signed Baggage Porter: Cecilio Bravo MD (Physician) [facility] Service: Hospitalist Progress Note Hospital Day: LOS: 18 days Post-Op Day: 11 Days Post-Op SUBJECTIVE Patient Summary: Per ICU note: The patient is a 53 y.o. male with significant past medical history of chronic alcohol abus e and multiple falls. Per ED report from [facility]: he was drinking earlier today at home and fell twice. He went to bed and then he was noted to be having what they thought was seizure activity and th ey could not wake him and called EMS. He was taken to the ED at [facility] in [place] a nd then transferred [...] and multiple falls who was transferred from [facility] due to a fall, seizures [...] placement to improve s trength and mobility. tennis net maker are working on finding placement which may take few days, however if accepted then can be discharged for rehabilitation Events Overnight: 2/2 pt still somewhat confused, thought he was in [place]. He knew that he fell, but didn [...] Oct 17 2014 7:38AM Referring Provider Line: [phone] ID: [id number] Ct Head Without Contrast 10/16/2014 [...] Oct 16 2014 6:08AM Referring Provider Line: [phone] E ID: [id number] PROBLEM LIST ASSESSMENT & [...] iscussion. CM routed updated medical notes to [facility] and [place]. PT recommending SNF. CM spoke w/ Tyler at [facility] and Mary Beth at [place], efaxed updated medical information, grace th are [...] at this time; planned for placement in [place] once patient is off sitter for 48 hrs. Otherwise patient continues to interact appropriately at this time and no impulsiveness is shown. Patient is mostly in chair or in bed and sleeping. 10/27 pt is alert today, no complications. Continue with PT. Pt without sitter. Pending plac ement still. 10/28 planning re-evaluation of patient's status for admission to [place]. Pt otherwise is not impulsive, mostly calm [...] this encounter Progress Notes Emilie Sutherland MS CCC-RESEARCH RN SPEC - 10/29/2014 3:00 PM PSTFormatting of this note might be diffe rent from the original. Therapy Progress Note by Emilie Sutherland MS CCC-RESEARCH RN SPEC at 10/29/14 1500 Author: Emilie Sutherland MS CCC-RESEARCH RN SPEC Service: (none) Author Type: Speech Therapist Filed: 10/29/14 1507 Date of Service: 10/29/14 1500 Status: Signed Baggage Porter: Emilie Sutherland MS CCC-RESEARCH RN SPEC (Speech Therapist) 10/29/14 1500 RESEARCH RN SPEC Last Visit RESEARCH RN SPEC Received On 10/29/14 Requires RESEARCH RN SPEC Follow Up No pt is being discharged from the hospital shortly. onversion T ransaction, Provider Unknown - 10/29/2014 11:18 AM PSTFormatting of this note might be diffe rent from the original. Case Management by TABITHA Armstrong at 10/29/14 1118 Author: TABITHA Armstrong Service: (none) Author Type: Core Finisher Filed: 10/29/14 1119 Date of Service: 10/29/14 1118 Status: Signed Baggage Porter: TABITHA Armstrong (Core Finisher) TELMA faxed MD's discharge orders to [facility] and arranged for a copy of pt's chart to be sent with pt. TELMA arranged for ambulance transport due to pt's confusion and risk of re-in jury of Subdural Hematoma/Craniotomy . CM notified pt & family of the discharge time. Pt had no other resource concerns. Discharge Plan: [facility] Jem NEILSW onver alem Transaction, Provider Unknown - 10/29/2014 10:35 AM PST Therapy Progress Note by ИВАН Elaine at 10/29/14 1035 Author: ИВАН Elaine Service: (none) Author Type: Massage Therapist Filed: 10/29/14 1035 Date of Service: 10/29/14 1035 Status: Signed Baggage Porter: ИВАН Elaine (Massage Therapist) 10/29/14 1035 Massage Therapy Interventions Locations Back;Neck;Shoulder Massage Therapy Technique Effleurage;Petrissage;Bulgarian massage Response to treatment Decreased muscle tension onver alem Transaction, Provider Unknown - 10/29/2014 10:05 AM PST Nurse Progress Note by Angelina Meade RN at 10/29/14 1005 Author: Angelina Meade RN Service: (none) Author Type: Registered Nurse Filed: 10/29/14 1044 Date of Service: 10/29/14 100 Status: Signed Baggage Porter: Angelina Meade RN (Registered Nurse) Report given to MICHELL Corral at [place] orcas Cintron, PT - 10/29/2014 9:20 AM PSTFormatting of this note might be different from t he original. Therapy Progress Note by Dorcas Holguin PT at 10/29/14919 Author: Dorcas Holguin PT Service: (none) Author Type: Physical Therapist Filed: 10/29/14 1112 Date of Service: 10/29/14919 Status: Signed Baggage Porter: Dorcas Holguin PT (Physical Therapist) 10/29/14919 PT Last Visit PT Received On 10/29/14 Reason for Treatment Brain injury Requires PT Follow Up Yes Follow up PT Only? No Focus for Next Treatment Formal Balance Assessment PT Eval/Reassessment Date 10/29/14 Assistance Required 2 person Steel Floor Pan Placing Supervisor Needed No Precautions Other Precautions helmet when [...] Barriers to Discharge Physical Deficits Impacting Functional Napoleon;Self-care Deficit s Impacting Functional Napoleon Recommendation Comments Pt may be discharging to SNF today if ready. Cecilio Briones MD - 10/28/2014 3:03 PM PST . Progress Notes by Cecilio Bravo MD at 10/28/14 1506 Author: Cecilio Bravo MD Service: Hospitalist Author Type: Physician Filed: 10/28/14 1509 Date of Service: 10/28/14 150 Status: Signed Baggage Porter: Cecilio Bravo MD (Physician) [facility] Service: Hospitalist Progress Note Hospital Day: LOS: 17 days Post-Op Day: 11 Days Post-Op SUBJECTIVE Patient Summary: Per ICU note: The patient is a 53 y.o. male with significant past medical history of chronic alcohol abus e and multiple falls. Per ED report from [facility]: he was drinking earlier today at home and fell twice. He went to bed and then he was noted to be having what they thought was seizure activity and th ey could not wake him and called EMS. He was taken to the ED at [facility] in [place] then transferred to the ED here for [...] and multiple falls who was transferred from [facility] due to a fall, seizures [...] placement to improve s trength and mobility. tennis net maker are working on finding placement which may [...] Oct 17 2014 7:38AM Referring Provider Line: [phone] ID: [id number] Ct Head Without Contrast 10/16/2014 [...] Oct 16 2014 6:08AM Referring Provider Line: [phone] E ID: [id number] PROBLEM LIST ASSESSMENT & [...] iscussion. CM routed updated medical notes to [facility] and [place]. PT recommending SNF. CM spoke w/ yTler at [facility] and Mary Beth at [place], efaxed updated medical information, grace th are [...] at this time; planned for placement in [place] once patient is off sitter for 48 hrs. Otherwise patient continues to interact appropriately at this time and no impulsiveness is shown. Patient is mostly in chair or in bed and sleeping. 10/27 pt is alert today, no complications. Continue with PT. Pt without sitter. Pending plac ement still. 10/28 planning re-evaluation of patient's status for admission to [place]. Pt otherwise is not impulsive, mostly calm [...] Bravo MD 10/28/2014 Maria Teresa Dhillon MA, CCC-RESEARCH RN SPEC - 10/27/2014 4:14 PM PST Therapy Progress Note by MS KT Hayes-RESEARCH RN SPEC at 10/27/14 2784 Author: MS KT Hayes-RESEARCH RN SPEC Service: (none) Author Type: Speech Therapist Filed: 10/27/14 5116 Date of Service: 10/27/141613 Status: Signed Baggage Porter: MS KT Hayes-RESEARCH RN SPEC (Speech and Language Pathologist) 10/27/14 1600 Swallowing Assessment Eval Swallowing Treatment Yes Consistencies Consistencies Assessed Yes Thin Presentation Cup;Self Fed Oral Phase Thin WFL Pharyngeal Phase Cough - immediate;Delayed swallow initiated;Decreased laryngeal elevation upon palpation [place] Presentation Self Fed;Cup Oral WFL Pharyngeal Phase No overt signs or symptoms of aspiration Dysphagia Mechanically Altered Presentation Spoon Oral Phase WFL Pharyngeal Phase No overt signs or symptoms of aspiration;Cough - Delayed (pt required cues to swallow - pt very agitated during trials) Recommendations Liquids Consistency Recommendations [place] thick Diet Consistency Recommendation Pureed Recommendations Dysphagia [...] Goals Pt will have safe/efficient oral intake [place] thick liquids;Puree diet;With feeding sherley t;Goal progressing Pt will tolerate diet upgrade trials With 1:1 supervision;Goal progressing onver alem Transaction, Provider Unknown - 10/27/2014 2:10 PM PST Therapy Progress Note by Katherin Garay PT at 10/27/14 6073 Author: Katherin Garay PT Service: (none) Author Type: Physical Therapist Filed: 10/27/14 8859 Date of Service: 10/27/141409 Status: Signed Baggage Porter: Katherin Bohnet, PT (Physical Therapist) 10/27/14 1410 PT Last Visit PT Received On 10/27/14 Reason for Treatment Brain injury (TBI R SDH) Requires PT Follow Up Yes Follow up PT Only? Yes Assistance Required 2 person Steel Floor Pan Placing Supervisor Needed No Precautions Other Precautions helmet when [...] Barriers to Discharge Physical Deficits Impacting Functional Napoleon;Self-care Deficit s Impacting Functional Napoleon onver alem Willard, Provider Unknown - 10/27/2014 11:15 AM PST Therapy Progress Note by CADEN Mcgowan at 10/27/14 1115 Author: CADEN Mcgowan Service: (none) Author Type: Occupational Therapist Filed: 10/27/14 1230 Date of Service: 10/27/14 1115 Status: Signed Baggage Porter: CADEN Mcgowan (Occupational Therapist) 10/27/14 1115 OT Last Visit OT Received On 10/27/14 Reason for Treatment Brain injury Requires OT Follow Up Yes Assistance Required 2 person Steel Floor Pan Placing Supervisor Needed No Family/Caregiver Present No Precautions Other [...] Acute OT;SNF Equipment Recommended Shower chair with back;Hydrate Thickener Operator;HHSH;Bedside commode Education Completed: Education Topic: ADLs, fine [...] commode, shower chair, hand held shower head, bi technical lead Cognitive deficits impacting functional independence-would benefit from [...] 1402 Date of Service: 10/27/14807 Status: Signed Baggage Porter: Cecilio Bravo MD (Physician) [facility] Service: Hospitalist Progress Note Hospital Day: LOS: 16 days Post-Op Day: 11 Days Post-Op SUBJECTIVE Patient Summary: Per ICU note: The patient is a 53 y.o. male with significant past medical history of chronic alcohol abus e and multiple falls. Per ED report from [facility]: he was drinking earlier today at home and fell twice. He went to bed and then he was noted to be having what they thought was seizure activity and th ey could not wake him and called EMS. He was taken to the ED at [facility] in [place] a nd then transferred to the ED [...] and multiple falls who was transferred from [facility] due to a fall, seizures [...] placement to improve s trength and mobility. tennis net maker are working on finding placement which may take few days, however if accepted then can be discharged for rehabilitation Events Overnight: 10/22 pt still somewhat confused, thought he was in [place]. He knew that he fell, but didn [...] Oct 17 2014 7:38AM Referring Provider Line: [phone] ID: [id number] Ct Head Without Contrast 10/16/2014 [...] Oct 16 2014 6:08AM Referring Provider Line: [phone] E ID: [id number] PROBLEM LIST ASSESSMENT & [...] iscussion. CM routed updated medical notes to [facility] and [place]. PT recommending SNF. CM spoke w/ Tyler at [facility] and Mary Beth at [place], efaxed updated medical information, grace th are [...] this time for planned for placement in [place] once patient is off sitter for 48 [...] Date of Service: 10/26/14 1631 Status: Signed Baggage Porter: CADEN Narvaez (Occupational Therapist) 10/26/14 1600 Time Calculation Start Time 1600 Stop Time 1615 Time Calculation (min) 15 min $ ADLs/IADLs ADLS/IADLS Charges Home management training $Home Management Training 8-22 mins Therapy Time 15 Minutes 10/26/14 1600 OT Last Visit OT Received On 10/26/14 Reason for Treatment Brain injury Requires OT Follow Up Yes Assistance Required 2 person Steel Floor Pan Placing Supervisor Needed No Family/Caregiver Present No Precautions Other [...] his mouth. about 4 rounds of gentle vucda-kplx-ov awakened. Activity Tolerance Activity Tolerance Patient limited [...] elevated Grooming Final Score 5 Comprehension (in alutiiq language) 3 - Patient requires moderate assist to comprehend DUE TO? needing parts of sentences repea stephenie 2 - Patient requires maximal assist to comprehend DUE TO? only understanding simple express ions Comprehension Final Score 2 - Maximal assistance Expression (in alutiiq language) 2 - Patient requires maximal assist [...] Date of Service: 10/26/14 1554 Status: Signed Baggage Porter: CADEN Narvaez (Occupational Therapist) Chart opened in error onversion Transa ction, Provider Unknown - 10/26/2014 1:34 PM PST Progress Notes by Anna Venegas RD at 10/26/14 1334 Author: Anna Venegas RD Service: (none) Author Type: Registered Dietitian Filed: 10/26/14 1347 Date of Service: 10/26/14 1334 Status: Signed Baggage Porter: Anna Venegas RD (Doyle Dietitian) Nutrition Follow-Up [...] on current weight of 85 kg Kcal: 2745-6511 (25-30 kcal/kg) Protein: 102-128 gr (1.2-1.5 gr/kg) [...] (none) Author Type: Physical Therapist Filed: 10/26/14 5038 Date of Service: 10/26/14 1313 Status: Signed Baggage Porter: Thalia Simmons PT (Physical Therapist) 10/26/14 1313 [...] 10/26/148 Date of Service: 10/26/141017 Status: Signed Baggage Porter: ИВАН Elaine (Massage Therapist) 10/26/14 1018 Massage Therapy Interventions Locations Back;Neck;Shoulder Massage Therapy Technique Effleurage;Petrissage;Bulgarian massage Response to treatment Decreased muscle tension;Decreased pain tegNatalee carmichael MS CCC-RESEARCH RN SPEC - 10/26/2014 10:14 AM PST Therapy Progress Note by Natalee Plata MS CCC-RESEARCH RN SPEC at 10/26/14 1014 Author: Natalee Plata MS CCC-RESEARCH RN SPEC Service: (none) Author Type: Speech and Language Pathologist Filed: 10/26/14 1014 Date of Service: 10/26/144 Status: Signed Baggage Porter: Natalee Plata MS CCC-RESEARCH RN SPEC (Speech and Language Pathologist) 10/26/14 0945 Swallowing Assessment Eval Swallowing Treatment Yes Initial Swallow Assessment Behavior/Cognition Cooperative;Neuro impairment Patient Positioning Upright in chair Consistencies Consistencies Assessed Yes Thin Presentation Cup;Self Fed Oral Phase Thin WFL Pharyngeal Phase Cough - immediate [place] Presentation Cup;Self Fed Oral WFL Pharyngeal Phase No overt signs or symptoms of aspiration Dysphagia Mechanically Altered Presentation Spoon Oral Phase WFL Pharyngeal Phase No overt signs or symptoms of aspiration Dysphagia Advanced Presentation Spoon Oral Phase WFL Pharyngeal Phase No overt signs or symptoms of aspiration Recommendations Liquids Consistency Recommendations [place] thick Diet Consistency Recommendation Pureed Recommendations Dysphagia [...] treatment;Continue with current plan Natalee Plata MS CCC-RESEARCH RN SPEC ljaylon, Me sahri Baumann PT - 10/26/2014 8:58 AM PSTFormatting of this note might be different from the madelin booker. Therapy Progress Note by Thalia Simmons PT at 10/26/14 0858 Author: Thalia Simmons PT Service: (none) Author Type: Physical Therapist Filed: 10/26/14 0937 Date of Service: 10/26/14857 Status: Signed Baggage Porter: Thalia Simmons PT (Physical Therapist) 10/26/14 0858 PT Last Visit PT Received On 10/26/14 Reason for Treatment Brain injury (SDH. bone flap removed) Requires PT Follow Up Yes Follow up PT Only? Yes Assistance Required 2 person Steel Floor Pan Placing Supervisor Needed No Precautions Other Precautions helmet on [...] Barriers to Discharge Physical Deficits Impacting Functional Napoleon;Self-care Deficit s Impacting Functional Napoleon;Neurological Impairment (see comment);Pain VS: 117/82 87 98% ra Cecilio Briones MD - 10/26/2014 8:09 AM PST Progress Notes by Cecilio Bravo MD at 10/26/14808 Author: Cecilio Bravo MD Service: Hospitalist Author Type: Physician Filed: 10/26/14 0074 Date of Service: 10/26/14808 Status: Signed Baggage Porter: Cecilio Bravo MD (Physician) [facility] Service: Hospitalist Progress Note Hospital Day: LOS: 15 days Post-Op Day: 11 Days Post-Op SUBJECTIVE Patient Summary: Per ICU note: The patient is a 53 y.o. male with significant past medical history of chronic alcohol abus e and multiple falls. Per ED report from [facility]: he was drinking earlier today at home and fell twice. He went to bed and then he was noted to be having what they thought was seizure activity and th ey could not wake him and called EMS. He was taken to the ED at [facility] in [place] a nd then transferred [...] and multiple falls who was transferred from [facility] due to a fall, seizures [...] placement to improve s trength and mobility. tennis net maker are working on finding placement which may take few days, however if accepted then can be discharged for rehabilitation Events Overnight: 2/ pt still somewhat confused, thought he was in [place]. He knew that he fell, but didn [...] Oct 17 2014 7:38AM Referring Provider Line: [phone] ID: [id number] Ct Head Without Contrast 10/16/2014 [...] Oct 16 2014 6:08AM Referring Provider Line: [phone] E ID: [id number] PROBLEM LIST ASSESSMENT & [...] iscussion. CM routed updated medical notes to [facility] and [place]. PT recommending SNF. CM spoke w/ Tyler at [facility] and Mary Beth at [place], efaxed updated medical information, grace th are [...] this time for planned for placement in [place] once patient is off sitter for 48 [...] Notes by Cecilio Bravo MD at 10/25/14 8582 Author: Cecilio Bravo MD Service: Hospitalist Author Type: Physician Filed: 10/25/14 8217 Date of Service: 10/25/141623 Status: Signed Baggage Porter: Cecilio Bravo MD (Physician) [facility] Service: Hospitalist Progress Note Hospital Day: LOS: 14 days Post-Op Day: 11 Days Post-Op SUBJECTIVE Patient Summary: Per ICU note: The patient is a 53 y.o. male with significant past medical history of chronic alcohol abus e and multiple falls. Per ED report from [facility]: he was drinking earlier today at home and fell twice. He went to bed and then he was noted to be having what they thought was seizure activity and th ey could not wake him and called EMS. He was taken to the ED at [facility] in [place] a nd then transferred to the ED [...] and multiple falls who was transferred from [facility] due to a fall, seizures [...] placement to improve s trength and mobility. tennis net maker are working on finding placement which may [...] Oct 17 2014 7:38AM Referring Provider Line: [phone] ID: [id number] Ct Head Without Contrast 10/16/2014 [...] Oct 16 2014 6:08AM Referring Provider Line: [phone] E ID: [id number] PROBLEM LIST ASSESSMENT & [...] iscussion. CM routed updated medical notes to [facility] and [place]. PT recommending SNF. CM spoke w/ Tyler at [facility] and Mary Beth at [place], efaxed updated medical information, grace th are [...] Cecilio Bravo MD 10/25/2014 Lin Richardson MS CCC-RESEARCH RN SPEC - 10/25/2014 3:31 PM PST Therapy Progress Note by Emilie Sutherland MS CCC-RESEARCH RN SPEC at 10/25/14 1531 Author: Emilie Sutherland MS CCC-RESEARCH RN SPEC Service: (none) Author Type: Speech Therapist Filed: 10/25/14 1532 Date of Service: 10/25/14 1531 Status: Signed Baggage Porter: Emilie Sutherland MS CCC-RESEARCH RN SPEC (Speech Therapist) 10/25/14 1531 RESEARCH RN SPEC Last Visit RESEARCH RN SPEC Received On 10/25/14 Requires RESEARCH RN SPEC Follow Up Unavailable (pt asleep and has [...] Date of Service: 10/25/14 1145 Status: Signed Baggage Porter: Trina Maldonado PT (Physical Therapist) 10/25/14 1145 PT Last Visit PT Received On 10/25/14 Reason for Treatment Brain injury (right SDH) Requires PT Follow Up Yes Follow up PT Only? Yes Assistance Required 2 person Steel Floor Pan Placing Supervisor Needed No Precautions Other Precautions helmet for [...] Author: TABITHA Armstrong Service: (none) Author Type: Core Finisher Filed: 10/25/14 1003 Date of Service: 10/25/14 1002 Status: Signed Baggage Porter: TABITHA Armstrong (Core Finisher) CM received a phone call from Loan at [facility] who agreed to accept pt once he dem onstrates he does not require a sitter for 48hrs. Jem NOEL onver alem Transaction, Provider Unknown - 10/24/2014 2:43 PM PST Case Management by TABITHA Armstrong at 10/24/14 1443 Author: TABITHA Armstrong Service: (none) Author Type: Core Finisher Filed: 10/24/14 0319 Date of Service: 10/24/14 9443 Status: Signed Baggage Porter: TABITHA Armstrong (Core Finisher) CM phoned both [facility] to see if they can accept pt. [facility] declined to accept pt. [facility] is still considering him. CM faxed a referral to [facility] as well. Jem NOEL Camille Montaño MD - 10/24/2014 2:00 PM PSTFormatting of this note might be different from marylou cook original. Progress Notes by Cecilio Bravo MD at 10/24/14 1400 Author: Cecilio Bravo MD Service: Hospitalist Author Type: Physician Filed: 10/24/14 1401 Date of Service: 10/24/14 1400 Status: Signed Baggage Porter: Cecilio Bravo MD (Physician) [facility] Service: Hospitalist Progress Note Hospital Day: LOS: 13 days Post-Op Day: 11 Days Post-Op SUBJECTIVE Patient Summary: Per ICU note: The patient is a 53 y.o. male with significant past medical history of chronic alcohol abus e and multiple falls. Per ED report from [facility]: he was drinking earlier today at home and fell twice. He went to bed and then he was noted to be having what they thought was seizure activity and th robbie could not wake him and called EMS. He was taken to the ED at [facility] in [place] a nd then transferred [...] and multiple falls who was transferred from [facility] due to a fall, seizures [...] placement to improve s trength and mobility. tennis net maker are working on finding placement which may take few days, however if accepted then can be discharged for rehabilitation Events Overnight: 2/2 pt still somewhat confused, thought he was in [place]. He knew that he fell, but didn [...] Oct 17 2014 7:38AM Referring Provider Line: [phone] ID: [id number] Ct Head Without Contrast 10/16/2014 [...] Oct 16 2014 6:08AM Referring Provider Line: [phone] E ID: [id number] PROBLEM LIST ASSESSMENT & [...] iscussion. CM routed updated medical notes to [facility] and [place]. PT recommending SNF. CM spoke w/ Tyler at [facility] and Mary Beth at [place], efaxed updated medical information, grace th are [...] MD 10/24/2014 ovarbritni ospina, Jessica Christy MA, CCC-RESEARCH RN SPEC - 10/24/2014 11:48 AM PST Therapy Progress Note by Jessica Headley MA CCC-RESEARCH RN SPEC at 10/24/14 1148 Author: Jessica Headley MA CCC-RESEARCH RN SPEC Service: (none) Author Type: Speech and Language Pathologist Filed: 10/24/14 1148 Date of Service: 10/24/14 1148 Status: Signed Baggage Porter: Jessica Headley MA CCC-RESEARCH RN SPEC (Speech and Language Pathologist) 10/24/14 1123 Swallowing Assessment Eval Swallowing Treatment Yes Initial Swallow Assessment Behavior/Cognition Cooperative;Alert Consistencies Consistencies Assessed Yes Thin Presentation Cup;Spoon Oral Phase Thin WFL Pharyngeal Phase Cough - immediate (immediate coughing with thins via cup) [place] Presentation Cup;Self Fed Oral WFL Pharyngeal Phase No overt signs or symptoms of aspiration Puree Presentation Spoon Oral Phase WFL Pharyngeal No overt signs or symptoms of aspiration;Delayed Swallow Recommendations Liquids Consistency Recommendations [place] thick Diet Consistency Recommendation Pureed Recommendations Dysphagia [...] Goals Pt will have safe/efficient oral intake [place] thick liquids;Puree diet;With feeding sherley t;Goal progressing Pt will tolerate diet upgrade trials With 1:1 supervision;Goal progressing onver alem Willard, Provider Unknown - 10/24/2014 10:07 AM PST Therapy Progress Note by ИВАН Elaine at 10/24/14 1007 Author: ИВАН Elaine Service: (none) Author Type: Massage Therapist Filed: 10/24/14 1007 Date of Service: 10/24/14 1007 Status: Signed Baggage Porter: ИВАН Elaine (Massage Therapist) 10/24/14 1007 Massage Therapy Interventions Locations Back;Neck;Shoulder Massage Therapy Technique Effleurage;Petrissage;Bulgarian massage Response to treatment Decreased muscle tension Camille Montaño MD - 10/23/2014 4:38 PM PSTFormatting of this note might be different from th e original. Progress Notes by Cecilio Bravo MD at 10/23/14 1638 Author: Cecilio Bravo MD Service: Hospitalist Author Type: Physician Filed: 10/23/14 1641 Date of Service: 10/23/14 1638 Status: Signed Baggage Porter: Cecilio Bravo MD (Physician) [facility] Service: Hospitalist Progress Note Hospital Day: LOS: 12 days Post-Op Day: 11 Days Post-Op SUBJECTIVE Patient Summary: Per ICU note: The patient is a 53 y.o. male with significant past medical history of chronic alcohol abus e and multiple falls. Per ED report from [facility]: he was drinking earlier today at home and fell twice. He went to bed and then he was noted to be having what they thought was seizure activity and th ey could not wake him and called EMS. He was taken to the ED at [facility] in [place] a nd then transferred to the ED [...] and multiple falls who was transferred from [facility] due to a fall, seizures [...] placement to improve s trength and mobility. tennis net maker are working on finding placement which may take few days, however if accepted then can be discharged for rehabilitation Events Overnight: 2/2 pt still somewhat confused, thought he was in [place]. He knew that he fell, but didn [...] Oct 17 2014 7:38AM Referring Provider Line: [phone] ID: [id number] Ct Head Without Contrast 10/16/2014 [...] Oct 16 2014 6:08AM Referring Provider Line: [phone] E ID: [id number] PROBLEM LIST ASSESSMENT & [...] iscussion. CM routed updated medical notes to [facility] and [place]. PT recommending SNF. CM spoke w/ Tyler at [facility] and Mary Beth at [place], efaxed updated medical information, grace th are [...] Management by Yeimi Ruiz RN at 10/23/14 1343 Author: Yeimi Ruiz RN Service: (none) Author Type: Registered Nurse Filed: 10/23/14 1640 Date of Service: 10/23/14 2327 Status: Signed Baggage Porter: Yeimi Ruiz RN (Registered Nurse) CM received a call from Sherry who is the Community Health Nurse from the [facility]. ([phone] and fax [phone]) She states that she can assist with [...] (none) Author Type: Physical Therapist Filed: 10/23/14 9068 Date of Service: 10/23/14 1140 Status: Signed Baggage Porter: Amara Duran PT (Physical Therapist) 10/23/14 1140 PT Last Visit PT Received On 10/23/14 Reason for Treatment Brain injury (right SDH) Requires PT Follow Up Yes Follow up PT Only? Yes Focus for Next Treatment Formal Balance Assessment;Bed Mobility Technique;Transfer Techniqu e Assistance Required 2 person Steel Floor Pan Placing Supervisor Needed No Precautions Other Precautions key for OOB activities Other Comments Comments Pt. [...] Barriers to Discharge Physical Deficits Impacting Functional Napoleon Recommendation Comments Pt. continues to require maximal assist for all mobility needs. Sebastian l need further skilled PT to address deficits prior to return home. onver Larissa Carey Unknown - 10/23/2014 11:29 AM PST Therapy Progress Note by ИВАН Poole at 10/23/14 1129 Author: ИВАН Poole Service: (none) Author Type: Massage Therapist Filed: 10/23/14 1130 Date of Service: 10/23/14 1129 Status: Signed Baggage Porter: ИВАН Poole (Massage Therapist) 10/23/14 1100 Massage Therapy Interventions Locations Back;Neck;Shoulder Massage Therapy Technique Effleurage;Petrissage;Bulgarian massage;Trigger point Response to treatment Decreased pain;Decreased [...] 10/22/141825 Date of Service: 10/22/141810 Status: Signed Baggage Porter: Cecilio Bravo MD (Physician) [facility] Service: Hospitalist Progress Note Hospital Day: LOS: 11 days Post-Op Day: 11 Days Post-Op SUBJECTIVE Patient Summary: Per ICU note: The patient is a 53 y.o. male with significant past medical history of chronic alcohol abus e and multiple falls. Per ED report from [facility]: he was drinking earlier today at home and fell twice. He went to bed and then he was noted to be having what they thought was seizure activity and th ey could not wake him and called EMS. He was taken to the ED at [facility] in [place] a nd then transferred to the ED [...] and multiple falls who was transferred from [facility] due to a fall, seizures [...] previous study. PT also followed and Dr. Agrueta consulted who initially thought he would be a good candidate to IPR bu t due to his weakness and persistent fatigue symptoms recommended SNF placement to improve s trength and mobility. tennis net maker are working on finding placement which may take few days, however if accepted then can be discharged for rehabilitation Events Overnight: 2/ pt still somewhat confused, thought he was in [place]. He knew that he fell, but didn [...] Oct 17 2014 7:38AM Referring Provider Line: [phone] ID: 004 Ct Head Without Contrast 10/16/2014 [...] Oct 16 2014 6:08AM Referring Provider Line: [phone] E ID: [id number] PROBLEM LIST ASSESSMENT & [...] iscussion. CM routed updated medical notes to [facility] and [place]. PT recommending SNF. CM spoke w/ Tyler at [facility] and Mary Beth at [place], efaxed updated medical information, grace th are [...] Cecilio Bravo MD 10/22/2014 Lin Richardson, MS CCC-RESEARCH RN SPEC - 10/22/2014 3:22 PM PST Therapy Progress Note by Emilie Sutherland MS CCC-RESEARCH RN SPEC at 10/22/14 1522 Author: Emilie Sutherland MS CCC-RESEARCH RN SPEC Service: (none) Author Type: Speech Therapist Filed: 10/22/14 1522 Date of Service: 10/22/14 1522 Status: Signed Baggage Porter: Emilie Sutherland MS CCC-RESEARCH RN SPEC (Speech Therapist) 10/22/14 0530 RESEARCH RN SPEC Last Visit RESEARCH RN SPEC Received On 10/22/14 Requires RESEARCH RN SPEC Follow Up Unavailable (attempted pt just given pain meds, very tired) Attempted to do trials, however pt every difficulty to keep wake. onversion T ransaction, Provider Unknown - 10/22/2014 3:15 PM PSTFormatting of this note might be diffe rent from the original. Case Management by TABITHA Dejesus at 10/22/14 1515 Author: TABITHA Dejesus Service: (none) Author Type: Outreach Coordinator Filed: 10/22/14 1527 Date of Service: 10/22/14 1515 Status: Addendum Baggage Porter: TABITHA Dejesus (Outreach Coordinator) Related Notes: Original Note by TABITHA Dejesus (Outreach Coordinator) filed at 10/22/14 1518 CM attempted to meet pt for d/c planning. CM could not arouse pt for discussion. CM route d updated medical notes to [facility] and [place]. PT recommending SNF. CM spoke w/ Tyler at [facility] and Mary Beth at [place], efaxed updated medical information, both are looking [...] Date of Service: 10/22/14 1435 Status: Addendum Baggage Porter: Jennifer Alberts RD (Registered Dietitian) Related Notes: [...] time; Cr .65 (L). Nutrition-focused physical findings: RESEARCH RN SPEC following for dysphagia. Diet order/current intake: Pureed, [...] offered daily. Recommendations: 1. Continue diet per RESEARCH RN SPEC. 2. Magic cups with meal trays. 3. Monitor pt's weight. 4. Offer high calorie foods on meal trays. Monitoring: Will follow up in 4 days per nutrition protocol. Jennifer Alberts MS, general internal medicine doctor, 10/22/14. onver alem Transaction, Provider Unknown - 10/22/2014 9:56 AM PST Therapy Progress Note by ИВАН Elaine at 10/22/14955 Author: ИВАН Elaine Service: (none) Author Type: Massage Therapist Filed: 10/22/1456 Date of Service: 10/22/14955 Status: Signed Baggage Porter: Pelon M Bryner, LMP (Massage Therapist) 10/22/14 [...] 1104 Date of Service: 10/22/14899 Status: Signed Baggage Porter: Dorcas Holguin PT (Physical Therapist) 10/22/14899 PT Last Visit PT Received On 10/22/14 Reason for Treatment (R SDH) Requires PT Follow Up Yes Follow up PT Only? Yes Focus for Next Treatment Formal Balance Assessment;Bed Mobility Technique;Transfer Techniqu e PT Eval/Reassessment Date 10/22/14 Assistance Required 2 person Steel Floor Pan Placing Supervisor Needed No Precautions Other Precautions helmet when [...] oriented to self also remembers RN and MEMBER OF CONGRESS;s name. Bed Mobility Rolling Moderate assist Supine [...] advance LLE however leg neal) Assistive Device (ORTHOTIC AIDE on 2 therapists) Static Sitting Balance Static [...] 1411 Date of Service: 10/21/14845 Status: Addendum Baggage Porter: Travon Mitchell MD (Physician) Related Notes: Original Note by Travon Mitchell MD (Physician) filed at 10/21/14 14 07 [facility] Service: Hospitalist Progress Note Tony Lockettcharlene 53 y.o. [id number] 438/[id number] male PER PT NONE Hospital Day: LOS: 10 days SUBJECTIVE Patient Summary: Patient is a 53 year old male with past medical history of Chronic Alcohol Abuse, Dependenc e and multiple falls who was transferred from [facility] due to a fall, seizures [...] placement to improve s trength and mobility. tennis net maker are working on finding placement which may [...] acute distr ess. HEENT: Head: S/P Craniotomy. [place] at midline and temporo parietoccipital area of [...] and followed by Dr. Nj from [facility]. He is making slow progress [...] Discharge plans to a SNF for rehabilitation. recovery manager is working on placement which cou ld be challenging due to [place] Medicaid. His insurance may contribute in the [...] (none) Author Type: Occupational Therapist Filed: 10/20/14 1532 Date of Service: 10/20/14 1533 Status: Signed Baggage Porter: CADEN Narvaez (Occupational Therapist) 10/20/14 1500 OT [...] Travon Mitchell MD at 10/20/14922 Author: Travon Mitcehll MD Service: Hospitalist Author Type: Physician Filed: 10/20/14 1506 Date of Service: 10/20/14922 Status: Signed Baggage Porter: Travon Mitchell MD (Physician) [facility] Service: Hospitalist Progress Note Tony Fortune 53 y.o. [id number] 438/[id number] male PER PT NONE Hospital Day: LOS: 9 days SUBJECTIVE Patient Summary: Patient is a 53 year old male with past medical history of Chronic Alcohol Abuse, Dependenc e and multiple falls who was transferred from [facility] due to a fall, seizures [...] in acute distress. HEENT: Head: S/P Craniotomy. [place] at midline and temporo parietoccipital area of [...] and now followed by Dr. Nj from [facility] rosurgery services. He is making [...] Discharge plans to a SNF for rehab. recovery manager is working on placement which could be harley [employer] due to [place] Medicaid insurance and may delay the discharge till accepted at a [facility]. Spent more than 30 minutes [...] (none) Author Type: Occupational Therapist Filed: 10/19/14 4120 Date of Service: 10/19/14 1501 Status: Signed Baggage Porter: CADEN Mcgowan (Occupational Therapist) 10/19/14 1501 Precautions Other Precautions helmet on when OOB Home Environment Bathroom Shower/Tub Tub/shower unit;Shower unit with threshold (uses walk in shower) Bathroom Toilet Standard Bathroom Equipment Grab bars in shower/bath Additional Comments Refer to PT note for PLOF Prior Function Level of Napoleon Independent with functional mobility;Independent with ADLs;Independe nt with IADLs Lives With Sibling(s) (stated living with brother) ADL Assistance Independent Home ADL's Independent ADL Eating Assistance Total (requiring 1:1 for feeding, per MEMBER OF CONGRESS) Grooming Assistance Dependent (per MEMBER OF CONGRESS) Grooming impacted by Cognitive deficits;Ability to follow [...] for ADLs/IADLs) Equipment Recommended Shower chair with back;Hydrate Thickener Operator;HHSH;Grab bars withing home;Bedside co mmode Education Completed: [...] JAVIER Mcgowan, CSRS 10/19/2014 ovarJessica reis MA, CCC-RESEARCH RN SPEC - 10/19/2014 2:12 PM PSTFormatting of this note might be differ ent from the original. Therapy Progress Note by Jessica Headley MA CCC-RESEARCH RN SPEC at 10/19/14 1412 Author: Jessica Headley MA CCC-RESEARCH RN SPEC Service: (none) Author Type: Speech and Language Pathologist Filed: 10/19/14 1413 Date of Service: 10/19/141411 Status: Signed Baggage Porter: Jessica Headley MA CCC-RESEARCH RN SPEC (Speech and Language Pathologist) 10/19/14 3157 Swallowing Assessment Eval Swallowing Treatment Yes Initial Swallow Assessment Behavior/Cognition Lethargic Consistencies Consistencies Assessed Yes Thin Presentation Spoon;Cup Oral Phase Thin Anterior Spillage Left Pharyngeal Phase Delayed swallow initiated;Spontaneous double swallow;Cough - delayed Puree Presentation Spoon Oral Phase Increased oral holding time Pharyngeal Delayed Swallow;No overt signs or symptoms of aspiration Recommendations Liquids Consistency Recommendations [place] thick Diet Consistency Recommendation Pureed (1-2 snacks [...] Notes by Debora Ott PA-C at 10/19/14 0614 Author: Debora Ott PA-C Service: Neurosurgery Author Type: Physician Sizing Machine Operator - Ce rtified Filed: 10/19/14 2426 Date of Service: 10/19/14 1541 Status: Signed Baggage Porter: Debora Ott PA-C (Physician Sizing Machine Operator - Certified) [facility] Service: Neurosurgery Progress Note Hospital Day: LOS: 8 days Post-Op Day: 8 Days Post-Op SUBJECTIVE Patient Summary: s/p craniectomy for large right SDH Events Overnight: Complaining of pain. IPR denied because he lives in [place], antoinette guardado on placement in [place]. Helmet arrived. Scheduled Medications docusate sodium 100 [...] Author: TABITHA Armstrong Service: (none) Author Type: Core Finisher Filed: 10/19/14 1418 Date of Service: 10/19/14 1346 Status: Addendum Baggage Porter: TABITHA Armstrong (Core Finisher) Related Notes: Original Note by TABITHA Armstrong (Core Finisher) filed at 10/19/14 1347 CM faxed a referral to [facility] in [place] and updated info to [facility] in [place]. CM faxed updated info to the [facility] [place]. Jem NOEL Travon Lara MD - 10/19/2014 1:40 PM PSTFormatting of this note might be different from t he original. Progress Notes by Travon Mitchell MD at 10/19/14 1340 Author: Travon Mitchell MD Service: Hospitalist Author Type: Physician Filed: 10/19/148 Date of Service: 10/19/141339 Status: Signed Baggage Porter: Travon Mitchell MD (Physician) [facility] Service: Hospitalist Progress Note Tony Fortune 53 y.o. [id number] 438/[id number] male PER PT NONE Hospital Day: LOS: 8 days SUBJECTIVE Patient Summary: Patient is a 53 year old male with past medical history of Chronic Alcohol Abuse, Dependenc e and multiple falls who was transferred from [facility] due to a fall, seizures [...] in acute distress. HEENT: Head: S/P Craniotomy. [place] at midline and temporo parietoccipital area of [...] and now followed by Dr. Nj from [facility] rosurgery services. He is making [...] when stable to a SNF for rehab. recovery manager is working on placement which could [...] Note by Thalia Simmons PT at 10/19/14 6231 Author: Thalia Simmons PT Service: (none) Author Type: Physical Therapist Filed: 10/19/14 2820 Date of Service: 10/19/14 5851 Status: Signed Baggage Porter: Thalia Simmons PT (Physical Therapist) 10/19/14 1150 PT Last Visit PT Received On 10/19/14 [...] Author: Crissy Maldonado Service: (none) Author Type: Ceo And Founder Filed: 10/19/147 Date of Service: 10/19/141055 Status: Signed Baggage Porter: Crissy Maldonado I attempted to meet with the patient to discuss who his PCP is, however he was in patient c are. Crissy Maldonado-GPS Fretted Instrument Maker Hand Wing Lewis Perry MD - 10/19/2014 9:01 AM PSTFormatting of this note might be different from the origi nal. Progress Notes by Wing Lewis Argueta MD at 10/19/14900 Author: Wing Lewis Argueta MD Service: (none) Author Type: Physician Filed: 10/19/14901 Date of Service: 10/19/14900 Status: Signed Baggage Porter: Wing Lewis Argueta MD (Physician) Patient seen [...] Notes by Rosa Lassiter RN at 10/19/14 4343 Author: Rosa Lassiter RN Service: (none) Author Type: Registered Nurse Filed: 10/19/148 Date of Service: 10/19/14445 Status: Signed Baggage Porter: Rosa Lassiter RN (Registered Nurse) Patient transported [...] Ott PA-C Service: Neurosurgery Author Type: Physician Sizing Machine Operator - Ce rtified Filed: 10/18/141434 Date of Service: 10/18/141431 Status: Signed Baggage Porter: Debora Ott PA-C (Physician Sizing Machine Operator - Certified) [facility] Service: Neurosurgery Progress Note Hospital Day: LOS: [...] (none) Author Type: Registered Dietitian Filed: 10/18/14 8417 Date of Service: 10/18/14 115 Status: Signed Baggage Porter: Maye Saleem RD, BRIAN (Registered Dietitian) Nutrition Follow-Up High-risk follow-up. Assessment: Has been very lethargic. Continues to have right-sided hemiparesis. Nutritionally pertinent labs: Electrolytes, BUN, and Cr are WNL. BG has been variable in th e 100s, no insulin ordered at this time. Nutrition-focused physical findings: Skin is intact. RESEARCH RN SPEC continues to follow due to dysphag ia. Diet order/current intake: Puree snacks, 1-2 items per meal tray TID plus nectar thick liqu ids by spoon only. Per RN, pt had Danish toast and yogurt this morning and finished 95%. On IV fluids of NS at 30 mL/hr. Continues to receive folic acid and thiamine supplementatio n. Nutrition Diagnosis: Increased kcal/protein requirements related to catabolic illness and healing as evidenced b y TBI. Intervention: Continue diet per RESEARCH RN SPEC recommendations. 1:1 feeds with all meals. Magic Cups to be sent with meal trays. Will monitor wt trend and f/u to provide further nutrition recs based on clinical course. Goal: PO intake will be adequate to meet pt's estimated nutritional requirements. Recommendations: 1) Continue diet per RESEARCH RN SPEC. 2) Magic Cups with meal trays. Monitoring: Will follow up in 4 days or as indicated. Maye Saleem RD, CD, CNSC 10/18/2014 onver alem Transaction, Provider Unknown - 10/18/2014 11:07 AM PST Therapy Progress Note by Flaquito Platt PT at 10/18/14 1107 Author: Flaquito Platt PT Service: (none) Author Type: Physical Therapist Filed: 10/18/14 5590 Date of Service: 10/18/141106 Status: Signed Baggage Porter: Flaquito Platt PT (Physical Therapist) 10/18/14 1107 [...] AM PST Therapy Progress Note by DAYANARA Ross-RESEARCH RN SPEC at 10/18/14912 Author: DAYANARA Ross-RESEARCH RN SPEC Service: (none) Author Type: Speech and Language Patholo gist Filed: 10/18/14912 Date of Service: 10/18/14912 Status: Signed Baggage Porter: DAYANARA Ross-RESEARCH RN SPEC (Speech and Language Pathologist) 10/18/14844 Swallowing Assessment Eval Swallowing Treatment Yes Initial Swallow Assessment Respiratory Status Room air Behavior/Cognition Requires cueing;Doesn't follow directions;Lethargic Dentition Adequate Vision Impaired for self-feeding Patient Positioning Upright in bed Volitional Cough Strong Consistencies Consistencies Assessed Yes Ice Chips Presentation Spoon Oral Phase Increased holding time Pharyngeal Phase No overt signs or symptoms of aspirations;Delayed swallow initiation [place] Presentation Cup Oral WFL;Increased Anterior to Posterior Transit Pharyngeal Phase Delayed swallow initiated;No overt signs or symptoms of aspiration;Decreas ed laryngeal elevation upon palpation Dysphagia Mechanically Altered Presentation Spoon Oral Phase Prolonged mastication;Increased holding time Pharyngeal Phase Cough - Delayed (cueing needed to swallow) Recommendations Liquids Consistency Recommendations [place] thick Diet Consistency Recommendation Pureed;Other (comment) (1-2 [...] monitoring;Patient/Family education;Assessment for upgr khadijah Dysphagia Goals Hand Plug Shaper Goals Safe/efficient oral intake Pt will have safe/efficient oral intake [place] thick liquids Pt will advanced diet in 3 days;Goal progressing Short Term Goals Tolerate diet Pt will tolerate diet upgrade trials With 1:1 supervision;Goal progressing Pt will tolerate diet Puree;with 1:1 supervision;With feeding assist;Goal progressing Mere Hardy MA CFY-RESEARCH RN SPEC 10/18/2014 Travon Lara MD - 10/18/2014 8:36 AM PSTFormatting of this note might be different from lissett ruvalcaba. Progress Notes by Travon Mitchell MD at 10/18/14835 Author: Travon Mitchell MD Service: Hospitalist Author Type: Physician Filed: 10/18/14 1458 Date of Service: 10/18/14835 Status: Signed Baggage Porter: Travon Mitchell MD (Physician) [facility] Service: Hospitalist Progress Note Tony Leeclinton 53 y.o. [id number] -1 male PER PT NONE Hospital Day: LOS: 7 days SUBJECTIVE Patient Summary: Patient is a 53 year old male with past medical history of Chronic Alcohol Abuse, Dependenc e and multiple falls who was transferred from [facility] due to a fall, seizures [...] Author: TABITHA Sidhu Service: (none) Author Type: Core Finisher Filed: 10/17/14 1049 Date of Service: 10/17/14 1048 Status: Signed Baggage Porter: TABITHA Sidhu (Core Finisher) Faxed updated clinical notes to [facility]. PT still not able to do a thorough eval as pt does not have his helmet yet. onver alem Transaction, Provider Unknown - 10/17/2014 10:38 AM PST Therapy Progress Note by Flaquito Platt PT at 10/17/14 1038 Author: Flaquito Platt, PT Service: (none) Author Type: Physical Therapist Filed: 10/17/14 1611 Date of Service: 10/17/14 1038 Status: Signed Baggage Porter: Flaquito Platt PT (Physical Therapist) 10/17/14 1038 [...] OOB mobility assessment Maria Teresa Valdes MA, CCC-RESEARCH RN SPEC - 10/17/2014 8:36 AM PSTFormatting of this note might be differ ent from the original. Therapy Progress Note by Maria Teresa Lucas MS CFY-RESEARCH RN SPEC at 10/17/14 8862 Author: Maria Teresa Lucas MS CFY-RESEARCH RN SPEC Service: (none) Author Type: Speech Therapist Filed: 10/17/14835 Date of Service: 10/17/14835 Status: Signed Baggage Porter: Maria Teresa Lucas MS CFY-RESEARCH RN SPEC (Speech and Language Pathologist) 10/17/14824 Swallowing Assessment Eval Swallowing Treatment Yes Consistencies Consistencies Assessed Yes [place] Presentation Cup Oral WFL;Increased Anterior to Posterior Transit Pharyngeal Phase No overt signs or symptoms of aspiration;Delayed swallow initiated;Decreas ed laryngeal elevation upon palpation;Spontaneous double swallow Recommendations Liquids Consistency Recommendations [place] thick;Other (comments) (by spoon) Diet Consistency Recommendation Pureed;Other (comment) (1 puree snack 3-4 times a day) Recommendations Dysphagia treatment;1:1 supervision;Feeding assist;Set up with meals;Check on patients frequently throught out meals Risk for Aspiration Moderate Compensatory Swallowing Strategies Upright as possible for all oral intake;Remain upright f or 30 minutes after meals;Alternate solids and liquids;Swallow 2 times per bite/sip;Small bi vpiin/sips;Eat/feed slowly;Effortful swallow Recommended Form of Meds Meds floated in puree Summary Pt observed for limited nectar trials by cup. Pt had just previously finished break fast so trials were limited by fatigue. Pt tolerated 2 sips of nectar by cup without s/sx of aspiration. RN states pt has been doing well with diet and pt was observed to be tolerating breakfast before RESEARCH RN SPEC walked in. Recommend cont. 1 puree snack [...] diet Pt will have safe/efficient oral intake [place] thick liquids;Puree diet;Goal progressing Pt will advanced diet in 3 days;Goal progressing Short Term Goals Tolerate diet upgrade trials Pt will tolerate diet upgrade trials With 1:1 supervision;Goal progressing Electronically signed by Maria Teresa Lucas MA, [facility]-RESEARCH RN SPEC at 10/17/2014 8:36 AM Travon Orosco MD - 10/17/2014 8:19 AM PSTFormatting of this note might be different from t regina original. Progress Notes by Travon Mitchell MD at 10/17/14818 Author: Travon Mitchell MD Service: Hospitalist Author Type: Physician Filed: 10/18/14 0019 Date of Service: 10/17/14818 Status: Signed Baggage Porter: Travon Mitchell MD (Physician) [facility] Service: Hospitalist Progress Note Tony Fortune 53 y.o. [id number] - male PER PT NONE Hospital Day: LOS: 7 days SUBJECTIVE Patient Summary: Patient is a 53 year old male with past medical history of Chronic Alcohol Abuse, Dependenc e and multiple falls who was transferred from [facility] due to a fall, seizures [...] in acute distress. HEENT: Head: S/P Craniotomy. [place] noted at the midline and temporo parietoccipital [...] Notes by Cyndy Nj MD at 10/17/14 0791 Author: Cyndy Nj MD Service: Neurosurgery Author Type: Physician Filed: 10/17/1448 Date of Service: 10/17/14744 Status: Signed Baggage Porter: Cyndy Nj MD (Physician) [facility] Service: Neurosurgery Progress Note Hospital Day: LOS: [...] Date of Service: 10/16/14 1430 Status: Signed Baggage Porter: CADEN Mcgowan (Occupational Therapist) 10/16/14 1430 OT Last Visit OT Received On 10/16/14 Requires OT Follow Up Unavailable (w/PT) Plan to follow up tomorrow for OT evaluation. JAVIER Mcgowan, CSRS 10/16/2014 Coral nichole, JENNIFER Arango - 10/16/2014 2:29 PM PSTFormatting of this note might be different f rom the original. Progress Notes by JENNIFER Small at 10/16/14 1429 Author: JENNIFER Small Service: Electric Switch Repairer Author Type: Electric Switch Repairer Filed: 10/16/14 1506 Date of Service: 10/16/14 1429 Status: Signed Baggage Porter: JENNIFER Small (Nurse Practitioner) [facility] Service: Electric Switch Repairer Progress Note Tony Fortune 53 y.o. Date of Admission: 10/11/2014 Treatment Team: Consulting Physician: Anthony Chong MD Admitting Provider: Harika Apodaca MD CHIEF COMPLAINT: severe TBI, large right SDH with massive midline shift, IC hypertension HISTORY OF PRESENT ILLNESS The patient is a 53 y.o. male with significant past medical history of chronic alcohol abus e and multiple falls. Per ED report from [facility]: he was drinking earlier today at home and fell twice. He went to bed and then he was noted to be having what they thought was seizure activity and th ey could not wake him and called EMS. He was taken to the ED at [facility] in [place] a nd then transferred to the ED [...] FOR BLEED; Surgeon: Anthony Chong MD; Location: [facility] [place]; Service: Neurosurgery; Laterality: [...] 14 2014 5:24AM Refe rring Provider Line: [phone] ID: [id number] Xr Chest 1 View 10/14/2014 [...] upper extremities. Orth otics was consultated and [facility] came and measured him for a [...] (none) Author Type: Physical Therapist Filed: 10/16/14 7591 Date of Service: 10/16/14 1415 Status: Signed Baggage Porter: Ki Martinez PT (Physical Therapist) 10/16/14 1415 [...] Author: TABITHA Sidhu Service: (none) Author Type: Core Finisher Filed: 10/16/14 1307 Date of Service: 10/16/14 1300 Status: Signed Baggage Porter: TABITHA Sidhu (Core Finisher) Received t/c from aDyami at [facility] ([phone]). She is requesting PT notes. I informed her that PT is unable to assess pt until pt's helmet comes in. I informed her that we have a phy siatrist in house that likely can do a physiatry consult. She expressed concern that pt will not have any family available to do family training. I offered her pt's mothers phone jarret hartmna however she wants to wait until pt has been seen by PT to go further with referral. I also informed her that I made a referral to [place] as a back up plan if pt is not an IPR ca ndidate. I called Doroteo Chamorro Coord for [facility] and she confirmed that [place] [facility] Medicaid requires that pt go to an [place] facility for rehab. Await PT/OT eval. Speech Therapy is already involved. onver alem Transaction, Provider Unknown - 10/16/2014 12:20 PM PST Case Management by TABITHA Sidhu at 10/16/14 1220 Author: TABITHA Sidhu Service: (none) Author Type: Core Finisher Filed: 10/16/14 1220 Date of Service: 10/16/14 1220 Status: Signed Baggage Porter: TABITHA Sidhu (Core Finisher) Placed t/c to [facility] and left message requesting bed availability and acceptance. Await return call. [facility] - Admissions- [phone] onver alem Transaction, Provider Unknown - 10/16/2014 12:01 PM PST Therapy Progress Note by Ki Martinez, PT at 10/16/14 1201 Author: Ki Martinez PT Service: (none) Author Type: Physical Therapist Filed: 10/16/14 1334 Date of Service: 10/16/14 1201 Status: Signed Baggage Porter: Ki Martinez PT (Physical Therapist) 10/16/14 1201 PT Last Visit PT Received On 10/16/14 (still awaiting ortho helmet delivery) Requires PT Follow Up Yes;On hold Cyndy Warner MD - 10/16/2014 11:22 AM PST Progress Notes by Cyndy Nj MD at 10/16/14 1122 Author: Cyndy Nj MD Service: Neurosurgery Author Type: Physician Filed: 10/16/14 1124 Date of Service: 10/16/14 1122 Status: Signed Baggage Porter: Cyndy Nj MD (Physician) [facility] Service: Neurosurgery Progress Note Hospital Day: LOS: [...] nystatin, nystatin, ondansetron OR ondanset gildardo, pancrelipase (Cha-Dbsa-Yotd) 10,000 units, petrolatum, phosphorus OR sodium phospha [...] Oct 16 2014 6:08AM Referring Provider Line: [phone] E ID: [id number] PROBLEM LIST Principal Problem: [...] Nj MD 10/16/2014 Maria Teresa Dhillon MA, CCC-RESEARCH RN SPEC - 10/16/2014 9:40 AM PST Therapy Progress Note by MS CLAUDIA HayesY-RESEARCH RN SPEC at 10/16/14939 Author: MS KT Hayes-RESEARCH RN SPEC Service: (none) Author Type: Speech Therapist Filed: 10/16/14940 Date of Service: 10/16/14939 Status: Signed Baggage Porter: Maria Teresa Lucas MS CFY-RESEARCH RN SPEC (Speech and Language Pathologist) 10/16/14920 Swallowing Assessment Eval Swallowing Treatment Yes Initial Swallow Assessment Respiratory Status Room air Behavior/Cognition Cooperative;Lethargic;Requires cueing Dentition Adequate;Poor dental/oral hygiene Vision Impaired for self-feeding Patient Positioning Upright in bed Volitional Cough Weak Volitional Swallow Delayed Consistencies Consistencies Assessed Yes [place] Presentation Spoon Oral WFL;Increased Anterior to Posterior Transit Pharyngeal Phase Delayed swallow initiated;Decreased laryngeal elevation upon palpation;Cou gh - delayed;Spontaneous double swallow Puree Presentation Spoon Oral Phase Increased oral holding time Pharyngeal Delayed Swallow;Cough - Delayed;Spontaneous double swallow;Decreased Laryngeal E levation Recommendations Liquids Consistency Recommendations [place] thick;Other (comments) (No straws ) Diet Consistency [...] diet Pt will have safe/efficient oral intake [place] thick liquids;Puree diet;Goal progressing Pt will advanced diet in 3 days;Goal progressing Short Term Goals Tolerate diet upgrade trials Pt will tolerate diet upgrade trials With 1:1 supervision;Goal progressing onver alem Transaction, Provider Unknown - 10/16/2014 9:12 AM PST Case Management by TABITHA Sidhu at 10/16/14 0912 Author: TABITHA Sidhu Service: (none) Author Type: Core Finisher Filed: 10/16/14 1254 Date of Service: 10/16/14911 Status: Addendum Baggage Porter: TABITHA Sidhu (Core Finisher) Related Notes: Original Note by TABITHA Sidhu (Core Finisher) filed at 10/16/14 0914 10/16/14 0908 Discharge Planning Evaluation Admitting Diagnosis TBI Readmission No Living Arrangements Alone Support Systems Parent;Children Type of Residence Private residence (Lives on the [facility]/housing project) House type (Duplex) Independent with [...] For Children Anticipated Disposition Facility Type Inpatient Rehabilitation;shelter facility Spoke with pt's mother Teressa ([phone]) and discussed discharge planning, Pt is a 53 y.o., male admitted with TBI from 2 falls rela stephenie to etoh. Per mother, pt was driving, shopping, doing own chores prior to admit. 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 Patient's PCP is: PER PT NONE Patient's [...] (none) Author Type: Registered Dietitian Filed: 10/15/14 3651 Date of Service: 10/15/141721 Status: Signed Baggage Porter: Maye Saleem RD, CD (Registered Dietitian) Nutrition Follow-Up High-risk follow-up. Assessment: Extubated yesterday. Appetite is good. Nutritionally pertinent labs: BG has been variable in the 100s, Nutrition-focused physical findings: Skin is intact. RESEARCH RN SPEC is following due to dysphagia. Diet order/current [...] y and TBI. Intervention: Continue diet per RESEARCH RN SPEC. 1:1 feeding assistance with meals. Include Ensure pudding with meal trays when appropriate. Additional supplements to be provided once diet can be advanced. Goal: Pt will tolerate diet upgrade and intake will be adequate to meet pt's estimated nutritiona l requirements. Recommendations: 1) General diet with texture/liquid modifications as per RESEARCH RN SPEC recommendations. 2) Ensure pudding with meal trays [...] 1631 Date of Service: 10/15/141631 Status: Signed Baggage Porter: Cyndy Nj MD (Physician) [facility] Service: Neurosurgery Progress Note Hospital Day: LOS: [...] nystatin, nystatin, ondansetron OR ondanset gildardo, pancrelipase (Gvs-Burr-Iwap) 10,000 units, petrolatum, phosphorus OR sodium phospha [...] 10/15/141932 Date of Service: 10/15/141609 Status: Signed Baggage Porter: Ki Martinez PT (Physical Therapist) 10/15/14 161 [...] p with bilateral hands, but had minimal anodize machine operator bilaterally. Pt was able to reach [...] Progress Notes by JENNIFER Small at 10/15/14 0452 Author: JENNIFER Small Service: Electric Switch Repairer Author Type: Electric Switch Repairer Filed: 10/15/14 1204 Date of Service: 10/15/14 8564 Status: Signed Baggage Porter: JENNIFER Small (Nurse Practitioner) [facility] Service: Electric Switch Repairer Progress Note Tony Fortune 53 y.o. Date of Admission: 10/11/2014 Treatment Team: Consulting Physician: Anthony Chong MD Admitting Provider: Harika Apodaca MD CHIEF COMPLAINT: severe TBI, large right SDH with massive midline shift, IC hypertension HISTORY OF PRESENT ILLNESS The patient is a 53 y.o. male with significant past medical history of chronic alcohol abus e and multiple falls. Per ED report from [facility]: he was drinking earlier today at home and fell twice. He went to bed and then he was noted to be having what they thought was seizure activity and th ey could not wake him and called EMS. He was taken to the ED at [facility] in [place] a nd then transferred to the ED [...] FOR BLEED; Surgeon: Anthony Chong MD; Location: [facility] [place]; Service: Neurosurgery; Laterality: [...] 14 2014 5:24AM Refe savage Provider Line: [phone] ID: [id number] Xr Chest 1 View 10/14/2014 [...] Author: TABITHA Sidhu Service: (none) Author Type: Core Finisher Filed: 10/16/14 1251 Date of Service: 10/15/14 1132 Status: Addendum Baggage Porter: TABITHA Sidhu (Core Finisher) Related Notes: Original Note by TABITHA Sidhu (Core Finisher) filed at 10/15/14 1135 Attended morning rounds. Pt is extubated. Will need TBI rehab. Has [place] Medicaid. Referral made to [facility] ([phone]). Faxed initial referral info and updated clinical. Await return call regarding acceptance and bed availability. onver alem Transaction, Provider Unknown - 10/15/2014 11:06 AM PST Therapy Progress Note by ИВАН Poole at 10/15/14 1106 Author: ИВАН Poole Service: (none) Author Type: Massage Therapist Filed: 10/15/14 1106 Date of Service: 10/15/14 1106 Status: Signed Baggage Porter: ИВАН Poole (Massage Therapist) 10/15/14 1100 MT Last Visit MT Received On 10/15/14 MT Therapy Visit On hold (due to temp >100F in last 24 hrs) Helen Campos MS [facility]-RESEARCH RN SPEC - 10/15/2014 8:30 AM PSTFormatting of this note might be different f rom the original. Therapy Progress Note by Helen Brian MS CFY-RESEARCH RN SPEC at 10/15/14829 Author: MS KT Waters-RESEARCH RN SPEC Service: (none) Author Type: Speech and Language Pa thologist Filed: 10/15/14907 Date of Service: 10/15/14829 Status: Signed Baggage Porter: MS KT Waters-RESEARCH RN SPEC (Speech and Language Pathologist) 10/15/14829 Swallowing Assessment [...] cough w/ all straw and cup trials) [place] Presentation Cup;Spoon Oral Spillage Left;Increased Anterior to Posterior Transit Pharyngeal Phase Delayed swallow initiated;Decreased laryngeal elevation upon palpation;Cou gh - delayed (delayed cough in 2/6 trials by cup, no cough by spoon) Puree Presentation Spoon Oral Phase Increased oral holding time Pharyngeal Delayed Swallow;Decreased Laryngeal Elevation;Spontaneous double swallow Recommendations Liquids Consistency Recommendations [place] thick;Ice chips for oral comfort (NO STRAWS) [...] diet Pt will have safe/efficient oral intake [place] thick liquids;Puree diet;New/revised goal Pt will advanced diet in 3 days;New/revised goal Short Term Goals Tolerate diet upgrade trials Pt will tolerate diet upgrade trials With 1:1 supervision;New/revised goal onversio n Transaction, Provider Unknown - 10/14/2014 4:48 PM PSTFormatting of this note might be di fferent from the original. Progress Notes by Massiel Stovall RN at 10/14/14 9118 Author: Massiel Stovall RN Service: (none) Author Type: Registered Nurse Filed: 10/14/14 238 Date of Service: 10/14/141647 Status: Signed Baggage Porter: Massiel Stovall RN (Registered Nurse) Phoned Pt [...] 1413 Date of Service: 10/14/141411 Status: Signed Baggage Porter: Maria Teresa Castillo RN (Registered Nurse) No need for PICC line at time. Time. Informed Na, APPLICATION DESIGNER to reorder if needed. Idalmis, Primar y RN to change IV today. MARIA TERESA CASTILLO RN Coral nichole, JENNIFER Arango - 10/14/2014 12:33 PM PSTFormatting of this note might be different f rom the original. Progress Notes by JENNIFER Small at 10/14/14 1233 Author: JENNIFER Small Service: Electric Switch Repairer Author Type: Electric Switch Repairer Filed: 10/14/14 1316 Date of Service: 10/14/14 1233 Status: Signed Baggage Porter: JENNIFER Small (Nurse Practitioner) [facility] Service: Electric Switch Repairer Progress Note Tony Fortune 53 y.o. Date of Admission: 10/11/2014 Treatment Team: Consulting Physician: Anthony Chong MD Admitting Provider: Harika Apodaca MD CHIEF COMPLAINT: severe TBI, large right SDH with massive midline shift, IC hypertension HISTORY OF PRESENT ILLNESS The patient is a 53 y.o. male with significant past medical history of chronic alcohol abus e and multiple falls. Per ED report from [facility]: he was drinking earlier today at home and fell twice. He went to bed and then he was noted to be having what they thought was seizure activity and th ey could not wake him and called EMS. He was taken to the ED at [facility] in [place] a nd then transferred to the ED [...] FOR BLEED; Surgeon: Anthony Chong MD; Location: [facility] [place]; Service: Neurosurgery; Laterality: Right; Craniectomy Right 10/11/2014 Procedure: CRANIECTOMY; Surgeon: Anthony Chong MD; Location: [facility]; Ser vice: Neurosurgery; Laterality: Right; ALLERGIES [...] heels LINES/TUBES: PIVs, daniels cath, left radial [place] DATA Recent Labs Lab 10/14/14 0415 10/13/14 [...] 14 2014 5:24AM Refe rrgeorges Provider Line: [phone] ID: [id number] Xr Chest 1 View 10/14/2014 [...] 10/14/14644 Date of Service: 10/14/14644 Status: Signed Baggage Porter: Sophy Vargas RPH (Pharmacist) Day 2 Vanco [...] 10/13/142099 Date of Service: 10/13/142099 Status: Signed Baggage Porter: Glenys Aguila RPH (Pharmacist) Clinical Pharmacy Note: [...] - 11.0 K/uL Final Testing performed at [facility], [address] [place] [address] INDICATION: CAP Will begin Vancomycin 1750 mg [...] 10/13/141636 Date of Service: 10/13/141636 Status: Signed Baggage Porter: Massiel Stovall RN (Registered Nurse) Pulmonary edema in process of resolving. tephe Anthony pierre MD - 10/13/2014 4:04 PM PSTFormatting of this note might be different from t he original. Progress Notes by Anthony Chong MD at 10/13/14 1604 Author: Anthony Chong MD Service: Neurosurgery Author Type: Physician Filed: 10/13/141606 Date of Service: 10/13/141603 Status: Signed Baggage Porter: Anthony Chong MD (Physician) [facility] Service: Neurosurgery Progress Note Hospital Day: LOS: [...] nystatin, nystatin, ondansetron OR ondanset gildardo, pancrelipase (Fqs-Qwnu-Shef) 10,000 units, petrolatum, phosphorus OR sodium phospha [...] Date of Service: 10/13/14 1530 Status: Signed Baggage Porter: Massiel Stovall RN (Registered Nurse) Pt went into flash pulmonary edema, And JENNIFER [facility] bed side. [facility], JENNIFER Arango - 10/13/2014 2:57 PM PSTFormatting of this note might be different f rom the original. Progress Notes by JENNIFER Small at 10/13/14 7647 Author: JENNIFER Small Service: Electric Switch Repairer Author Type: Electric Switch Repairer Filed: 10/13/14 1510 Date of Service: 10/13/141456 Status: Signed Baggage Porter: JENNIFER Small (Nurse Practitioner) [facility] Service: Electric Switch Repairer Progress Note Tony Fortune 53 y.o. Date of Admission: 10/11/2014 Treatment Team: Consulting Physician: Anthony Chong MD Admitting Provider: Harika Apodaca MD CHIEF COMPLAINT: severe TBI, large right SDH with massive midline shift, IC hypertension HISTORY OF PRESENT ILLNESS The patient is a 53 y.o. male with significant past medical history of chronic alcohol abus e and multiple falls. Per ED report from [facility]: he was drinking earlier today at home and fell twice. He went to bed and then he was noted to be having what they thought was seizure activity and th ey could not wake him and called EMS. He was taken to the ED at [facility] in [place] a nd then transferred to the ED [...] FOR BLEED; Surgeon: Anthony Chong MD; Location: [facility] [place]; Service: Neurosurgery; Laterality: [...] heels LINES/TUBES: PIVs, daniels cath, left radial [place] DATA Recent Labs Lab 10/13/14 0247 10/12/14 [...] 10/13/14446 Date of Service: 10/13/14442 Status: Signed Baggage Porter: Mikki Jules RRT (Registered Respiratory Therapist) RT [...] at 10/12/142015 Author: Harika Apodaca MD Service: Electric Switch Repairer Author Type: Electric Switch Repairer Filed: 10/12/142026 Date of Service: 10/12/142015 Status: Signed Baggage Porter: Harika Apodaca MD (Physician) [facility] Service: Electric Switch Repairer Progress Note Tony Fortune 53 y.o. Date [...] and multiple falls. Per ED report from [facility]: he was drinking earlier today and fe ll twice. He went to bed and then he was noted to be having what they thought was seizure ac tivity and they could not wake him and called EMS. He was taken to the ED at [facility] and then [...] FOR BLEED; Surgeon: Anthony Chong MD; Location: [facility] [place]; Service: Neurosurgery; Laterality: [...] 4 mm and reactive. Motor: Able to furniture mover RUE to command and left LE [...] Case Management by TABITHA Sidhu at 10/12/14 1495 Author: TABITHA Sidhu Service: (none) Author Type: Core Finisher Filed: 10/12/14 4198 Date of Service: 10/12/141529 Status: Signed Baggage Porter: TABITHA Sidhu (Core Finisher) Attended morning rounds. Pt is vented and admitted with TBI. No family have visited yet lissett kothari. Pt appears to be responding to some commands. He is a drinker. He reportedly has had s everal falls recently. Pt will need TBI rehab. He is from [place], [place] and [place]. If he requires LTAC h e will need to go to [facility] as [place] Medicaid is contracted with [facility] only. Will c omplete assessment when family arrives. tAnthony rodriguez MD - 10/12/2014 2:04 PM PSTFormatting of this note might be different from t he original. Progress Notes by Anthony Chong MD at 10/12/14 3655 Author: Anthony Chong MD Service: Neurosurgery Author Type: Physician Filed: 10/12/14 7158 Date of Service: 10/12/141403 Status: Signed Baggage Porter: Anthony Chong MD (Physician) [facility] Service: Neurosurgery Progress Note Hospital Day: LOS: [...] 10/11/142351 Date of Service: 10/11/142349 Status: Signed Baggage Porter: Trena Gilbert () [facility] Nayana called with request from family. When I arrived at hospital family had already left. I will leave info for morning automotive painter to visit tomorrow. Chaplain Trena Gilbert onver alem Transaction, Provider Unknown - 10/11/2014 11:02 PM PST Progress Notes by Glenys Aguila RPH at 10/11/142301 Author: Glenys Aguila RPH Service: (none) Author Type: Pharmacist Filed: 10/11/142301 Date of Service: 10/11/142301 Status: Signed Baggage Porter: Glenys Aguila RPH (Pharmacist) Clinical Pharmacy Note: [...] [address] | | | | | | [place] [address] | | | | | | [phone] | | | | | | | [...] | | | | | [place] [address] | | | | + + + + + + | K | 3.8Comment: Testing | 3.5 - 4.9 | EXTERNAL | | | | performed at [facility], [address] | mmol/L | LAB | | | | [address], | | | | | | [place] [address] | | | | + + + + + + | Cl | 101Comment: Testing | 99 - 109 mmol/L | EXTERNAL | | | | performed at [facility], [address] | | LAB | | | | [address], | | | | | | [place] [address] | | | | + + + + + + | CO2 | 28Comment: Testing | 23 - 32 mmol/L | EXTERNAL | | | | performed at [facility], [address] | | LAB | | | | [address], | | | | | | [place] [address] | | | | + + + + + + | Anion Gap | 9Comment: Testing | 5 - 20 mmol/L | EXTERNAL | | | | performed at [facility], [address] | | LAB | | | | [address], | | | | | | [place] [address] | | | | + + + + + + | Glucose, | 119 (H)Comment: Testing | 65 - 99 mg/dL | EXTERNAL | | | Fasting | performed at [facility], [address] | | LAB | | | | [address], | | | | | | [place] [address] | | | | + + + + + + | BUN | 8Comment: Testing | 8 - 25 mg/dL | EXTERNAL | | | | performed at [facility], [address] | | LAB | | | | [address], | | | | | | [place] [address] | | | | + + + [...] | | ine Ratio | performed at [facility], [address] | | LAB | | | | [address], | | | | | | [place] [address] | | | | + + + + + + | Calcium | 9.4Comment: NOTE NEW | 8.5 - 10.5 | EXTERNAL | | | | REFERENCE RANGETesting | mg/dL | LAB | | | | performed at [facility], [address] | | | | | | [address], | | | | | | [place] [address] | | | | + + + [...] | | | | | | at [facility], [address] | | | | | | [address], | | | | | | [place] [address] | | | | + + + [...] | | | | | [place] [address] | | | | + + + + + + | K | 3.6Comment: Testing | 3.5 - 4.9 | EXTERNAL | | | | performed at [facility], [address] | mmol/L | LAB | | | | [address], | | | | | | [place] [address] | | | | + + + + + + | Cl | 101Comment: Testing | 99 - 109 mmol/L | EXTERNAL | | | | performed at [facility], [address] | | LAB | | | | [address], | | | | | | [place] [address] | | | | + + + + + + | CO2 | 29Comment: Testing | 23 - 32 mmol/L | EXTERNAL | | | | performed at [facility], [address] | | LAB | | | | [address], | | | | | | [place] [address] | | | | + + + + + + | Anion Gap | 8Comment: Testing | 5 - 20 mmol/L | EXTERNAL | | | | performed at [facility], [address] | | LAB | | | | [address], | | | | | | [place] [address] | | | | + + + + + + | Glucose, | 118 (H)Comment: Testing | 65 - 99 mg/dL | EXTERNAL | | | Fasting | performed at [facility], [address] | | LAB | | | | [address], | | | | | | [place] [address] | | | | + + + + + + | BUN | 7 (L)Comment: Testing | 8 - 25 mg/dL | EXTERNAL | | | | performed at [facility], [address] | | LAB | | | | [address], | | | | | | [place] [address] | | | | + + + + + + | Creatinine | 0.57 (L)Comment: Testing | 0.70 - 1.30 | EXTERNAL | | | | performed at [facility], [address] | mg/dL | LAB | | | | [address], | | | | | | [place] [address] | | | | + + + + + + | BUN/Creatin | 12Comment: Testing | | EXTERNAL | | | ine Ratio | performed at [facility], [address] | | LAB | | | | [address], | | | | | | [place] [address] | | | | + + + + + + | Calcium | 9.5Comment: NOTE NEW | 8.5 - 10.5 | EXTERNAL | | | | REFERENCE RANGETesting | mg/dL | LAB | | | | performed at [facility], [address] | | | | | | [address], | | | | | | [place] [address] | | | | + + + + + + | Protein, | 7.7Comment: Testing | 6.3 - 8.2 g/dL | EXTERNAL | | | Total | performed at [facility], [address] | | LAB | | | | [address], | | | | | | [place] [address] | | | | + + + + + + | Albumin | 3.5 (L)Comment: Testing | 3.6 - 5.0 g/dL | EXTERNAL | | | | performed at [facility], [address] | | LAB | | | | [address], | | | | | | [place] [address] | | | | + + + + + + | Globulin | 4.2Comment: Testing | 1.3 - 4.9 g/dL | EXTERNAL | | | | performed at [facility], [address] | | LAB | | | | [address], | | | | | | [place] [address] | | | | + + + + + + | A/G Ratio | 0.8 (L)Comment: Testing | 1.0 - 2.4 | EXTERNAL | | | | performed at [facility], [address] | | LAB | | | | [address], | | | | | | [place] [address] | | | | + + + + + + | Bilirubin | 0.6Comment: Testing | 0.1 - 1.5 mg/dL | EXTERNAL | | | Total | performed at [facility], [address] | | LAB | | | | [address], | | | | | | [place] [address] | | | | + + + + + + | ALP, | 225 (H)Comment: Testing | 35 - 115 U/L | EXTERNAL | | | External | performed at [facility], [address] | | LAB | | | | [address], | | | | | | [place] [address] | | | | + + + + + + | AST | 52 (H)Comment: Testing | 10 - 45 U/L | EXTERNAL | | | | performed at [facility], [address] | | LAB | | | | [address], | | | | | | [place] [address] | | | | + + + + + + | ALT | 46Comment: Testing | 10 - 65 U/L | EXTERNAL | | | | performed at [facility], [address] | | LAB | | | | [address], | | | | | | [place] [address] | | | | + + + [...] | | | | | [place] [address] | | | | + + + [...] | | | | | [place] [address] | | | | + + + + + + | RED CELL | 3.62 (L)Comment: Testing | 4.20 - 5.70 | EXTERNAL | | | COUNT | performed at [facility], [address] | M/uL | LAB | | | | [address], | | | | | | [place] [address] | | | | + + + + + + | Hgb | 12.0 (L)Comment: Testing | 13.2 - 17.0 | EXTERNAL | | | | performed at [facility], [address] | g/dL | LAB | | | | [address], | | | | | | [place] [address] | | | | + + + + + + | Hematocrit, | 36.2 (L)Comment: Testing | 39.0 - 50.0 % | EXTERNAL | | | POC | performed at [facility], [address] | | LAB | | | | [address], | | | | | | [place] [address] | | | | + + + + + + | MCV | 99.9Comment: Testing | 80.0 - 100.0 fl | EXTERNAL | | | | performed at [facility], [address] | | LAB | | | | [address], | | | | | | [place] [address] | | | | + + + + + + | MCH | 33.2Comment: Testing | 27.0 - 34.0 pg | EXTERNAL | | | | performed at [facility], [address] | | LAB | | | | [address], | | | | | | [place] [address] | | | | + + + + + + | MCHC | 33.2Comment: Testing | 32.0 - 35.5 | EXTERNAL | | | | performed at [facility], [address] | g/dL | LAB | | | | [address], | | | | | | [place] [address] | | | | + + + [...] | | | | | [place] [address] | | | | + + + + + + | MPV | 8.2Comment: Testing | fl | EXTERNAL | | | | performed at [facility], [address] | | LAB | | | | [address], | | | | | | [place] [address] | | | | + + + + + + | Differentia | AUTOMATEDComment: | | EXTERNAL | | | l Type | Testing performed at | | LAB | | | | [facility], [address] | | | | | | [place] | | | | | | [address] | | | | + + + + + + | % Segmented | 72.2Comment: Testing | % | EXTERNAL | | | | performed at [facility], [address] | | LAB | | | Neutrophils | [address], | | | | | | [place] [address] | | | | + + + + + + | % | 16.2Comment: Testing | % | EXTERNAL | | | Lymphocytes | performed at [facility], [address] | | LAB | | | | [address], | | | | | | [place] [address] | | | | + + + + + + | % Monocytes | 7.9Comment: Testing | % | EXTERNAL | | | | performed at [facility], [address] | | LAB | | | | [address], | | | | | | [place] [address] | | | | + + + + + + | % | 3.0Comment: Testing | % | EXTERNAL | | | Eosinophils | performed at [facility], [address] | | LAB | | | | [address], | | | | | | [place] [address] | | | | + + + + + + | % Basophils | 0.7Comment: Testing | % | EXTERNAL | | | | performed at [facility], [address] | | LAB | | | | [address], | | | | | | [place] [address] | | | | + + + + + + | Absolute | 5.7Comment: Testing | 1.9 - 7.4 K/uL | EXTERNAL | | | Segmented | performed at [facility], [address] | | LAB | | | Neutrophils | [address], | | | | | | [place] [address] | | | | + + + + + + | Absolute | 1.3Comment: Testing | 1.0 - 3.9 K/uL | EXTERNAL | | | Lymphocytes | performed at [facility], [address] | | LAB | | | | [address], | | | | | | [place] [address] | | | | + + + + + + | Absolute | 0.6Comment: Testing | 0 - 0.8 K/uL | EXTERNAL | | | Monocytes | performed at [facility], [address] | | LAB | | | | [address], | | | | | | [place] [address] | | | | + + + + + + | Absolute | 0.2Comment: Testing | 0 - 0.5 K/uL | EXTERNAL | | | Eosinophils | performed at [facility], [address] | | LAB | | | | [address], | | | | | | [place] [address] | | | | + + + + + + | Absolute | 0.1Comment: Testing | 0 - 0.1 K/uL | EXTERNAL | | | Basophils | performed at [facility], [address] | | LAB | | | | [address], | | | | | | [place] [address] | | | | + + [...] EXTERNAL | | | | performed at [facility];[address] | | LAB | | | | [address];[place], [place] | | | | | | [address] | | | | + + + [...] | | | | | [place] [address] | | | | + + + + + + | K | 3.5Comment: Testing | 3.5 - 4.9 | EXTERNAL | | | | performed at [facility], [address] | mmol/L | LAB | | | | [address], | | | | | | [place] [address] | | | | + + + + + + | Cl | 100Comment: Testing | 99 - 109 mmol/L | EXTERNAL | | | | performed at [facility], [address] | | LAB | | | | [address], | | | | | | [place] [address] | | | | + + + + + + | CO2 | 26Comment: Testing | 23 - 32 mmol/L | EXTERNAL | | | | performed at [facility], [address] | | LAB | | | | [address], | | | | | | [place] [address] | | | | + + + + + + | Anion Gap | 11Comment: Testing | 5 - 20 mmol/L | EXTERNAL | | | | performed at [facility], [address] | | LAB | | | | [address], | | | | | | [place] [address] | | | | + + + + + + | Glucose, | 112 (H)Comment: Testing | 65 - 99 mg/dL | EXTERNAL | | | Fasting | performed at [facility], [address] | | LAB | | | | [address], | | | | | | [place] [address] | | | | + + + + + + | BUN | 8Comment: Testing | 8 - 25 mg/dL | EXTERNAL | | | | performed at [facility], [address] | | LAB | | | | [address], | | | | | | [place] [address] | | | | + + + + + + | Creatinine | 0.65 (L)Comment: Testing | 0.70 - 1.30 | EXTERNAL | | | | performed at [facility], [address] | mg/dL | LAB | | | | [address], | | | | | | [place] [address] | | | | + + + + + + | BUN/Creatin | 12Comment: Testing | | EXTERNAL | | | ine Ratio | performed at [facility], [address] | | LAB | | | | [address], | | | | | | [place] [address] | | | | + + + + + + | Calcium | 9.2Comment: NOTE NEW | 8.5 - 10.5 | EXTERNAL | | | | REFERENCE RANGETesting | mg/dL | LAB | | | | performed at [facility], [address] | | | | | | [address], | | | | | | [place] [address] | | | | + + + [...] | | | | | | [place] [address] | | | | + + + [...] | | | | | [place] [address] | | | | + + + + + + | K | 3.6Comment: Testing | 3.5 - 4.9 | EXTERNAL | | | | performed at [facility], [address] | mmol/L | LAB | | | | [address], | | | | | | [place] [address] | | | | + + + + + + | Cl | 100Comment: Testing | 99 - 109 mmol/L | EXTERNAL | | | | performed at [facility], [address] | | LAB | | | | [address], | | | | | | [place] [address] | | | | + + + + + + | CO2 | 27Comment: Testing | 23 - 32 mmol/L | EXTERNAL | | | | performed at [facility], [address] | | LAB | | | | [address], | | | | | | [place] [address] | | | | + + + + + + | Anion Gap | 10Comment: Testing | 5 - 20 mmol/L | EXTERNAL | | | | performed at [facility], [address] | | LAB | | | | [address], | | | | | | [place] [address] | | | | + + + + + + | Glucose, | 119 (H)Comment: Testing | 65 - 99 mg/dL | EXTERNAL | | | Fasting | performed at [facility], [address] | | LAB | | | | [address], | | | | | | [place] [address] | | | | + + + + + + | BUN | 11Comment: Testing | 8 - 25 mg/dL | EXTERNAL | | | | performed at [facility], [address] | | LAB | | | | [address], | | | | | | [place] [address] | | | | + + + + + + | Creatinine | 0.64 (L)Comment: Testing | 0.70 - 1.30 | EXTERNAL | | | | performed at [facility], [address] | mg/dL | LAB | | | | [address], | | | | | | [place] [address] | | | | + + + + + + | BUN/Creatin | 17Comment: Testing | | EXTERNAL | | | ine Ratio | performed at [facility], [address] | | LAB | | | | [address], | | | | | | [place] [address] | | | | + + + + + + | Calcium | 9.4Comment: NOTE NEW | 8.5 - 10.5 | EXTERNAL | | | | REFERENCE RANGETesting | mg/dL | LAB | | | | performed at [facility], [address] | | | | | | [facility], | | | | | | [place] [address] | | | | + + + [...] | | | | | | at [facility], [address] | | | | | | [facility], | | | | | | [place] [address] | | | | + + + [...] | | | | | [place] [address] | | | | + + + + + + | RED CELL | 3.83 (L)Comment: Testing | 4.20 - 5.70 | EXTERNAL | | | COUNT | performed at [facility], [address] | M/uL | LAB | | | | [address], | | | | | | [place] [address] | | | | + + + + + + | Hgb | 12.8 (L)Comment: Testing | 13.2 - 17.0 | EXTERNAL | | | | performed at [facility], [address] | g/dL | LAB | | | | [address], | | | | | | [place] [address] | | | | + + + + + + | Hematocrit, | 38.0 (L)Comment: Testing | 39.0 - 50.0 % | EXTERNAL | | | POC | performed at [facility], [address] | | LAB | | | | [address], | | | | | | [place] [address] | | | | + + + + + + | MCV | 99.2Comment: Testing | 80.0 - 100.0 fl | EXTERNAL | | | | performed at [facility], [address] | | LAB | | | | [address], | | | | | | [place] [address] | | | | + + + + + + | MCH | 33.3Comment: Testing | 27.0 - 34.0 pg | EXTERNAL | | | | performed at [facility], [address] | | LAB | | | | [address], | | | | | | [place] [address] | | | | + + + + + + | MCHC | 33.6Comment: Testing | 32.0 - 35.5 | EXTERNAL | | | | performed at [facility], [address] | g/dL | LAB | | | | [address], | | | | | | [place] [address] | | | | + + + + + + | RDW-CV | 56.9 (H)Comment: Testing | 37 - 53 fl | EXTERNAL | | | | performed at [facility], [address] | | LAB | | | | [address], | | | | | | [place] [address] | | | | + + + + + + | Platelet | 327Comment: Testing | 150 - 400 K/uL | EXTERNAL | | | Count | performed at [facility], [address] | | LAB | | | Plasma | [address], | | | | | | [place] [address] | | | | + + + + + + | MPV | 8.3Comment: Testing | fl | EXTERNAL | | | | performed at [facility], [address] | | LAB | | | | [address], | | | | | | [place] [address] | | | | + + + + + + | Differentia | AUTOMATEDComment: | | EXTERNAL | | | l Type | Testing performed at | | LAB | | | | [facility], [address] | | | | | | [place] | | | | | | [address] | | | | + + + [...] | | | | | [place] [address] | | | | + + + + + + | % Monocytes | 7.6Comment: Testing | % | EXTERNAL | | | | performed at [facility], [address] | | LAB | | | | [address], | | | | | | [place] [address] | | | | + + + + + + | % | 2.0Comment: Testing | % | EXTERNAL | | | Eosinophils | performed at [facility], [address] | | LAB | | | | [address], | | | | | | [place] [address] | | | | + + + + + + | % Basophils | 0.7Comment: Testing | % | EXTERNAL | | | | performed at [facility], [address] | | LAB | | | | [address], | | | | | | [place] [address] | | | | + + + + + + | Absolute | 6.9Comment: Testing | 1.9 - 7.4 K/uL | EXTERNAL | | | Segmented | performed at [facility], [address] | | LAB | | | Neutrophils | [address], | | | | | | [place] [address] | | | | + + + + + + | Absolute | 1.6Comment: Testing | 1.0 - 3.9 K/uL | EXTERNAL | | | Lymphocytes | performed at [facility], [address] | | LAB | | | | [address], | | | | | | [place] [address] | | | | + + + + + + | Absolute | 0.7Comment: Testing | 0 - 0.8 K/uL | EXTERNAL | | | Monocytes | performed at [facility], [address] | | LAB | | | | [address], | | | | | | [place] [address] | | | | + + + + + + | Absolute | 0.2Comment: Testing | 0 - 0.5 K/uL | EXTERNAL | | | Eosinophils | performed at [facility], [address] | | LAB | | | | [address], | | | | | | [place] [address] | | | | + + + + + + | Absolute | 0.1Comment: Testing | 0 - 0.1 K/uL | EXTERNAL | | | Basophils | performed at [facility], [address] | | LAB | | | | [address], | | | | | | [place] [address] | | | | + + + [...] EXTERNAL | | | | performed at [facility];[address] | | LAB | | | | [address];[place] | | | | | | [address] | | | | + + + [...] | | | | | [place] [address] | | | | + + + + + + | K | 3.8Comment: Testing | 3.5 - 4.9 | EXTERNAL | | | | performed at [facility], [address] | mmol/L | LAB | | | | [address], | | | | | | [place] [address] | | | | + + + + + + | Cl | 98 (L)Comment: Testing | 99 - 109 mmol/L | EXTERNAL | | | | performed at [facility], [address] | | LAB | | | | [address], | | | | | | [place] [address] | | | | + + + + + + | CO2 | 26Comment: Testing | 23 - 32 mmol/L | EXTERNAL | | | | performed at [facility], [address] | | LAB | | | | [address], | | | | | | [place] [address] | | | | + + + + + + | Anion Gap | 11Comment: Testing | 5 - 20 mmol/L | EXTERNAL | | | | performed at [facility], [address] | | LAB | | | | [address], | | | | | | [place] [address] | | | | + + + + + + | Glucose, | 121 (H)Comment: Testing | 65 - 99 mg/dL | EXTERNAL | | | Fasting | performed at [facility], [address] | | LAB | | | | [address], | | | | | | [place] [address] | | | | + + + + + + | BUN | 10Comment: Testing | 8 - 25 mg/dL | EXTERNAL | | | | performed at [facility], [address] | | LAB | | | | [address], | | | | | | [place] [address] | | | | + + + + + + | Creatinine | 0.60 (L)Comment: Testing | 0.70 - 1.30 | EXTERNAL | | | | performed at [facility], [address] | mg/dL | LAB | | | | [address], | | | | | | [place] [address] | | | | + + + + + + | BUN/Creatin | 17Comment: Testing | | EXTERNAL | | | ine Ratio | performed at [facility], [address] | | LAB | | | | [address], | | | | | | [place] [address] | | | | + + + + + + | Calcium | 9.3Comment: NOTE NEW | 8.5 - 10.5 | EXTERNAL | | | | REFERENCE RANGETesting | mg/dL | LAB | | | | performed at [facility], [address] | | | | | | [address], | | | | | | [place] [address] | | | | + + + [...] | | | | | | at [facility], [address] | | | | | | [address], | | | | | | [place] [address] | | | | + + + [...] EXTERNAL | | | | performed at [facility], [address] | | LAB | | | | [address], | | | | | | [place] [address] | | | | + + + + + + | RED CELL | 3.77 (L)Comment: Testing | 4.20 - 5.70 | EXTERNAL | | | COUNT | performed at [facility], [address] | M/uL | LAB | | | | [address], | | | | | | [place] [address] | | | | + + + + + + | Hgb | 12.2 (L)Comment: Testing | 13.2 - 17.0 | EXTERNAL | | | | performed at [facility], [address] | g/dL | LAB | | | | [address], | | | | | | [place] [address] | | | | + + + + + + | Hematocrit, | 37.3 (L)Comment: Testing | 39.0 - 50.0 % | EXTERNAL | | | POC | performed at [facility], [address] | | LAB | | | | [address], | | | | | | [place] [address] | | | | + + + + + + | MCV | 98.9Comment: Testing | 80.0 - 100.0 fl | EXTERNAL | | | | performed at [facility], [address] | | LAB | | | | [address], | | | | | | [place] [address] | | | | + + + + + + | MCH | 32.3Comment: Testing | 27.0 - 34.0 pg | EXTERNAL | | | | performed at [facility], [address] | | LAB | | | | [address], | | | | | | [place] [address] | | | | + + + + + + | MCHC | 32.6Comment: Testing | 32.0 - 35.5 | EXTERNAL | | | | performed at [facility], [address] | g/dL | LAB | | | | [address], | | | | | | [place], [place] [address] | | | | + + + + + + | RDW-CV | 58.6 (H)Comment: Testing | 37 - 53 fl | EXTERNAL | | | | performed at [facility], [address] | | LAB | | | | [address], | | | | | | [place], [place] [address] | | | | + + + + + + | Platelet | 274Comment: Testing | 150 - 400 K/uL | EXTERNAL | | | Count | performed at [facility], [address] | | LAB | | | Plasma | [address], | | | | | | [place], [place] [address] | | | | + + + + + + | MPV | 8.1Comment: Testing | fl | EXTERNAL | | | | performed at [facility], [address] | | LAB | | | | [address], | | | | | | [place] [address] | | | | + + + + + + | Differentia | AUTOMATEDComment: | | EXTERNAL | | | l Type | Testing performed at | | LAB | | | | [facility], [address] | | | | | | [place] | | | | | | [address] | | | | + + + + + + | % Segmented | 71.7Comment: Testing | % | EXTERNAL | | | | performed at [facility], [address] | | LAB | | | Neutrophils | [address], | | | | | | [place] [address] | | | | + + + + + + | % | 15.9Comment: Testing | % | EXTERNAL | | | Lymphocytes | performed at [facility], [address] | | LAB | | | | [address], | | | | | | [place] [address] | | | | + + + + + + | % Monocytes | 9.3Comment: Testing | % | EXTERNAL | | | | performed at [facility], [address] | | LAB | | | | [address], | | | | | | [place] [address] | | | | + + + + + + | % | 2.4Comment: Testing | % | EXTERNAL | | | Eosinophils | performed at [facility], [address] | | LAB | | | | [address], | | | | | | [place] [address] | | | | + + + + + + | % Basophils | 0.7Comment: Testing | % | EXTERNAL | | | | performed at [facility], [address] | | LAB | | | | [address], | | | | | | [place] [address] | | | | + + + + + + | Absolute | 6.7Comment: Testing | 1.9 - 7.4 K/uL | EXTERNAL | | | Segmented | performed at [facility], [address] | | LAB | | | Neutrophils | [address], | | | | | | [place] [address] | | | | + + + + + + | Absolute | 1.5Comment: Testing | 1.0 - 3.9 K/uL | EXTERNAL | | | Lymphocytes | performed at [facility], [address] | | LAB | | | | [address], | | | | | | [place] [address] | | | | + + + + + + | Absolute | 0.9 (H)Comment: Testing | 0 - 0.8 K/uL | EXTERNAL | | | Monocytes | performed at [facility], [address] | | LAB | | | | [address], | | | | | | [place] [address] | | | | + + + + + + | Absolute | 0.2Comment: Testing | 0 - 0.5 K/uL | EXTERNAL | | | Eosinophils | performed at [facility], [address] | | LAB | | | | [address], | | | | | | [place] [address] | | | | + + + + + + | Absolute | 0.1Comment: Testing | 0 - 0.1 K/uL | EXTERNAL | | | Basophils | performed at [facility], [address] | | LAB | | | | [place] [address], | | | | | | [place] [address] | | | | + + + [...] EXTERNAL | | | | performed at [facility];[address] | | LAB | | | | [address];[place], [place] | | | | | | [address] | | | | + + + [...] EXTERNAL | | | | performed at [facility];[address] | mmol/L | LAB | | | | [place] | | | | | | [address] | | | | + + + + + + | K | 4.0Comment: Testing | 3.5 - 4.9 | EXTERNAL | | | | performed at [facility];[address] | mmol/L | LAB | | | | [address];[place] | | | | | | [address] | | | | + + + + + + | Cl | 102Comment: Testing | 99 - 109 mmol/L | EXTERNAL | | | | performed at [facility];[address] | | LAB | | | | [address];[place] | | | | | | [address] | | | | + + + + + + | CO2 | 27Comment: Testing | 23 - 32 mmol/L | EXTERNAL | | | | performed at [facility];[address] | | LAB | | | | [address];[place] | | | | | | [address] | | | | + + + + + + | Anion Gap | 10Comment: Testing | 5 - 20 mmol/L | EXTERNAL | | | | performed at [facility];[address] | | LAB | | | | [address];[place] | | | | | | [address] | | | | + + + + + + | Glucose, | 128 (H)Comment: Testing | 65 - 99 mg/dL | EXTERNAL | | | Fasting | performed at [facility];[address] | | LAB | | | | [address];[place] | | | | | | [address] | | | | + + + + + + | BUN | 9Comment: Testing | 8 - 25 mg/dL | EXTERNAL | | | | performed at [facility];[address] | | LAB | | | | [address];[place] | | | | | | [address] | | | | + + + + + + | Creatinine | 0.78Comment: Testing | 0.70 - 1.30 | EXTERNAL | | | | performed at [facility];888 | mg/dL | LAB | | | | [address];[place] | | | | | | [address] | | | | + + + + + + | BUN/Creatin | 12Comment: Testing | | EXTERNAL | | | ine Ratio | performed at [facility];888 | | LAB | | | | [address];[place] | | | | | | [address] | | | | + + + + + + | Calcium | 8.4 (L)Comment: NOTE NEW | 8.5 - 10.5 | EXTERNAL | | | | REFERENCE RANGETesting | mg/dL | LAB | | | | performed at [facility];888 | | | | | | [facility];[place] | | | | | | [address] | | | | + + + [...] | | | | | | at [facility];[address] [facility] | | | | | | [address];[place] [id number] | | | | + + + [...] 7:38AM | | | Referring Provider Line: [phone] ID: [id number] | | + + + [...] | to 10/16/2014. RADIA Electronically signed by aMriya Calzada MD on Oct 17 2014 | | 7:38AM Referring Provider Line: [phone] ID: [id number] | | | |IMPRESSION: | |Unchanged head CT compared to 10/16/2014. | | | |RADIA | | | | Electronically signed by Mariya Calzada MD on Oct 17 2014 7:38AM Referring Provider Dian e: [phone] ID: [id number] | + + Potassium (10/16/2014 5:47 PM PST) + + + + + + | Component | Value | Ref Range | Performed | Pathologist | | | | | At | Signature | + + + + + + | K | 4.2Comment: Testing | 3.5 - 4.9 | EXTERNAL | | | | performed at [facility];888 | mmol/L | LAB | | | | [address];[place] | | | | | | [address] | | | | + + + [...] 6:08AM | | | Referring Provider Line: [phone] ID: [id number] | | + + + [...] 2014 | | 6:08AM Referring Provider Line: [phone] ID: [id number] | | | |IMPRESSION: | | | |Right-sided drain has been removed. No evidence of interval hemorrhage or worsening mass ef fect. Hypodense subdural collection over the right frontal convexity has increased in size. Serial followup suggested. No other significant interval change. | | | | Electronically signed by Jimbo Mckeon MD on Oct 16 2014 6:08AM Referring Provider Line: [phone] ID: [id number] | + + External Lab: [...] | | | | | [place] [address] | | | | + + + + + + | RED CELL | 3.62 (L)Comment: Testing | 4.20 - 5.70 | EXTERNAL | | | COUNT | performed at [facility], [address] | M/uL | LAB | | | | [address], | | | | | | [place] [address] | | | | + + + + + + | Hgb | 11.9 (L)Comment: Testing | 13.2 - 17.0 | EXTERNAL | | | | performed at [facility], [address] | g/dL | LAB | | | | [address], | | | | | | [place] [address] | | | | + + + + + + | Hematocrit, | 36.0 (L)Comment: Testing | 39.0 - 50.0 % | EXTERNAL | | | POC | performed at [facility], [address] | | LAB | | | | [address], | | | | | | [place] [address] | | | | + + + + + + | MCV | 99.4Comment: Testing | 80.0 - 100.0 fl | EXTERNAL | | | | performed at [facility], [address] | | LAB | | | | [address], | | | | | | [place] [address] | | | | + + + + + + | MCH | 32.9Comment: Testing | 27.0 - 34.0 pg | EXTERNAL | | | | performed at [facility], [address] | | LAB | | | | [address], | | | | | | [place] [address] | | | | + + + + + + | MCHC | 33.0Comment: Testing | 32.0 - 35.5 | EXTERNAL | | | | performed at [facility], [address] | g/dL | LAB | | | | [address], | | | | | | [place] [address] | | | | + + + + + + | RDW-CV | 59.5 (H)Comment: Testing | 37 - 53 fl | EXTERNAL | | | | performed at [facility], [address] | | LAB | | | | [address], | | | | | | [place] [address] | | | | + + + + + + | Platelet | 201Comment: Testing | 150 - 400 K/uL | EXTERNAL | | | Count | performed at [facility], [address] | | LAB | | | Plasma | [address], | | | | | | [place] [address] | | | | + + + + + + | MPV | 8.2Comment: Testing | fl | EXTERNAL | | | | performed at [facility], [address] | | LAB | | | | [address], | | | | | | [place] [address] | | | | + + + + + + | Differentia | AUTOMATEDComment: | | EXTERNAL | | | l Type | Testing performed at | | LAB | | | | [facility], [address] | | | | | | [place] | | | | | | [address] | | | | + + + + + + | % Segmented | 77.8Comment: Testing | % | EXTERNAL | | | | performed at [facility], [address] | | LAB | | | Neutrophils | [address], | | | | | | [place] [address] | | | | + + + + + + | % | 9.6Comment: Testing | % | EXTERNAL | | | Lymphocytes | performed at [facility], [address] | | LAB | | | | [address], | | | | | | [place] [address] | | | | + + + + + + | % Monocytes | 10.5Comment: Testing | % | EXTERNAL | | | | performed at [facility], [address] | | LAB | | | | [address], | | | | | | [place] | | | | + + + + + + | % | 1.6Comment: Testing | % | EXTERNAL | | | Eosinophils | performed at [facility], [address] | | LAB | | | | [address], | | | | | | [place] [address] | | | | + + + + + + | % Basophils | 0.5Comment: Testing | % | EXTERNAL | | | | performed at [facility], [address] | | LAB | | | | [address], | | | | | | [place] [address] | | | | + + + + + + | Absolute | 6.8Comment: Testing | 1.9 - 7.4 K/uL | EXTERNAL | | | Segmented | performed at [facility], [address] | | LAB | | | Neutrophils | [address], | | | | | | [place] [address] | | | | + + + + + + | Absolute | 0.8 (L)Comment: Testing | 1.0 - 3.9 K/uL | EXTERNAL | | | Lymphocytes | performed at [facility], [address] | | LAB | | | | [address], | | | | | | [place] [address] | | | | + + + + + + | Absolute | 0.9 (H)Comment: Testing | 0 - 0.8 K/uL | EXTERNAL | | | Monocytes | performed at [facility], [address] | | LAB | | | | [address], | | | | | | [place] [address] | | | | + + + + + + | Absolute | 0.1Comment: Testing | 0 - 0.5 K/uL | EXTERNAL | | | Eosinophils | performed at [facility], [address] | | LAB | | | | [address], | | | | | | [place] [address] | | | | + + + + + + | Absolute | 0.0Comment: Testing | 0 - 0.1 K/uL | EXTERNAL | | | Basophils | performed at [facility], [address] | | LAB | | | | [address], | | | | | | [place] [address] | | | | + + + [...] | | | | | [place] [address] | | | | + + + + + + | K | 3.4 (L)Comment: Testing | 3.5 - 4.9 | EXTERNAL | | | | performed at [facility], [address] | mmol/L | LAB | | | | [address], | | | | | | [place] [address] | | | | + + + + + + | Cl | 102Comment: Testing | 99 - 109 mmol/L | EXTERNAL | | | | performed at [facility], [address] | | LAB | | | | [address], | | | | | | [place] [address] | | | | + + + + + + | CO2 | 27Comment: Testing | 23 - 32 mmol/L | EXTERNAL | | | | performed at [facility], [address] | | LAB | | | | [address], | | | | | | [place] [address] | | | | + + + + + + | Anion Gap | 12Comment: Testing | 5 - 20 mmol/L | EXTERNAL | | | | performed at [facility], [address] | | LAB | | | | [address], | | | | | | [place] [address] | | | | + + + + + + | Glucose, | 151 (H)Comment: Testing | 65 - 99 mg/dL | EXTERNAL | | | Fasting | performed at [facility], [address] | | LAB | | | | [address], | | | | | | [place] [address] | | | | + + + + + + | BUN | 8Comment: Testing | 8 - 25 mg/dL | EXTERNAL | | | | performed at [facility], [address] | | LAB | | | | [address], | | | | | | [place] [address] | | | | + + + + + + | Creatinine | 0.44 (L)Comment: Testing | 0.70 - 1.30 | EXTERNAL | | | | performed at [facility], [address] | mg/dL | LAB | | | | [address], | | | | | | [place] [address] | | | | + + + + + + | BUN/Creatin | 18Comment: Testing | | EXTERNAL | | | ine Ratio | performed at [facility], [address] | | LAB | | | | [address], | | | | | | [place] [address] | | | | + + + + + + | Calcium | 9.1Comment: NOTE NEW | 8.5 - 10.5 | EXTERNAL | | | | REFERENCE RANGETesting | mg/dL | LAB | | | | performed at [facility], [address] | | | | | | [address] [facility], | | | | | | [...] | | | | | | [address] [facility], | | | | | | [place] [address] | | | | + + + [...] LAB | | | | performed at [facility];[address] | | | | | | [address];[place] | | | | | | [address] | | | | + + + [...] EXTERNAL | | | | performed at [facility], [address] | | LAB | | | | [address], | | | | | | [place] [address] | | | | + + + + + + | RED CELL | 3.36 (L)Comment: Testing | 4.20 - 5.70 | EXTERNAL | | | COUNT | performed at [facility], [address] | M/uL | LAB | | | | [address], | | | | | | [place] [address] | | | | + + + + + + | Hgb | 11.1 (L)Comment: Testing | 13.2 - 17.0 | EXTERNAL | | | | performed at [facility], [address] | g/dL | LAB | | | | [address], | | | | | | [place] [address] | | | | + + + + + + | Hematocrit, | 34.0 (L)Comment: Testing | 39.0 - 50.0 % | EXTERNAL | | | POC | performed at [facility], [address] | | LAB | | | | [address], | | | | | | [place] [address] | | | | + + + + + + | MCV | 101.0 (H)Comment: | 80.0 - 100.0 fl | EXTERNAL | | | | Testing performed at | | LAB | | | | [facility], [address] | | | | | | [place] | | | | | | [address] | | | | + + + + + + | MCH | 33.1Comment: Testing | 27.0 - 34.0 pg | EXTERNAL | | | | performed at [facility], [address] | | LAB | | | | [address], | | | | | | [place] [address] | | | | + + + + + + | MCHC | 32.7Comment: Testing | 32.0 - 35.5 | EXTERNAL | | | | performed at [facility], [address] | g/dL | LAB | | | | [address], | | | | | | [place] [address] | | | | + + + + + + | RDW-CV | 59.1 (H)Comment: Testing | 37 - 53 fl | EXTERNAL | | | | performed at [facility], [address] | | LAB | | | | [address], | | | | | | [place] [address] | | | | + + + + + + | Platelet | 162Comment: Testing | 150 - 400 K/uL | EXTERNAL | | | Count | performed at [facility], [address] | | LAB | | | Plasma | [address], | | | | | | [place] [address] | | | | + + + + + + | MPV | 8.6Comment: Testing | fl | EXTERNAL | | | | performed at [facility], [address] | | LAB | | | | [address], | | | | | | [place] [address] | | | | + + + + + + | Differentia | AUTOMATEDComment: | | EXTERNAL | | | l Type | Testing performed at | | LAB | | | | [facility], [address] | | | | | | [place] | | | | | | [address] | | | | + + + + + + | % Segmented | 72.7Comment: Testing | % | EXTERNAL | | | | performed at [facility], [address] | | LAB | | | Neutrophils | [address], | | | | | | [place] [address] | | | | + + + [...] | | | | | [place] [address] | | | | + + + + + + | % | 1.7Comment: Testing | % | EXTERNAL | | | Eosinophils | performed at [facility], [address] | | LAB | | | | [address], | | | | | | [place] [address] | | | | + + + + + + | % Basophils | 0.5Comment: Testing | % | EXTERNAL | | | | performed at [facility], [address] | | LAB | | | | [address], | | | | | | [place] [address] | | | | + + + + + + | Absolute | 5.9Comment: Testing | 1.9 - 7.4 K/uL | EXTERNAL | | | Segmented | performed at [facility], [address] | | LAB | | | Neutrophils | [address], | | | | | | [place] [address] | | | | + + + + + + | Absolute | 1.0Comment: Testing | 1.0 - 3.9 K/uL | EXTERNAL | | | Lymphocytes | performed at [facility], [address] | | LAB | | | | [address], | | | | | | [place] [address] | | | | + + + + + + | Absolute | 1.1 (H)Comment: Testing | 0 - 0.8 K/uL | EXTERNAL | | | Monocytes | performed at [facility], [address] | | LAB | | | | [address], | | | | | | [place] [address] | | | | + + + + + + | Absolute | 0.1Comment: Testing | 0 - 0.5 K/uL | EXTERNAL | | | Eosinophils | performed at [facility], [address] | | LAB | | | | [address], | | | | | | [place] [address] | | | | + + + + + + | Absolute | 0.0Comment: Testing | 0 - 0.1 K/uL | EXTERNAL | | | Basophils | performed at [facility], [address] | | LAB | | | | [address], | | | | | | [place] [address] | | | | + + + [...] | | | | | [place] [address] | | | | + + + + + + | K | 3.8Comment: Testing | 3.5 - 4.9 | EXTERNAL | | | | performed at [facility], [address] | mmol/L | LAB | | | | [address], | | | | | | [place] [address] | | | | + + + + + + | Cl | 105Comment: Testing | 99 - 109 mmol/L | EXTERNAL | | | | performed at [facility], [address] | | LAB | | | | [address], | | | | | | [place] [address] | | | | + + + + + + | CO2 | 28Comment: Testing | 23 - 32 mmol/L | EXTERNAL | | | | performed at [facility], [address] | | LAB | | | | [address], | | | | | | [place] [address] | | | | + + + + + + | Anion Gap | 8Comment: Testing | 5 - 20 mmol/L | EXTERNAL | | | | performed at [facility], [address] | | LAB | | | | [address], | | | | | | [place] [address] | | | | + + + + + + | Glucose, | 112 (H)Comment: Testing | 65 - 99 mg/dL | EXTERNAL | | | Fasting | performed at [facility], [address] | | LAB | | | | [address], | | | | | | [place] [address] | | | | + + + + + + | BUN | 8Comment: Testing | 8 - 25 mg/dL | EXTERNAL | | | | performed at [facility], [address] | | LAB | | | | [address], | | | | | | [place] [address] | | | | + + + + + + | Creatinine | 0.51 (L)Comment: Testing | 0.70 - 1.30 | EXTERNAL | | | | performed at [facility], [address] | mg/dL | LAB | | | | [address], | | | | | | [place] [address] | | | | + + + + + + | BUN/Creatin | 16Comment: Testing | | EXTERNAL | | | ine Ratio | performed at [facility], [address] | | LAB | | | | [address], | | | | | | [place] [address] | | | | + + + + + + | Calcium | 8.5Comment: NOTE NEW | 8.5 - 10.5 | EXTERNAL | | | | REFERENCE RANGETesting | mg/dL | LAB | | | | performed at [facility], [address] | | | | | | [address], | | | | | | [place] [address] | | | | + + + [...] | | | | | | at [facility], [address] | | | | | | [address], | | | | | | [place] [address] | | | | + + + [...] EXTERNAL | | | | performed at [facility];[address] | mmol/L | LAB | | | | [address];[place] | | | | | | [address] | | | | + + + + + + | K | 3.5Comment: Testing | 3.5 - 4.9 | EXTERNAL | | | | performed at [facility];[address] | mmol/L | LAB | | | | [address];[place] | | | | | | [address] | | | | + + + + + + | Cl | 103Comment: Testing | 99 - 109 mmol/L | EXTERNAL | | | | performed at [facility];[address] | | LAB | | | | [address];[place] | | | | | | [address] | | | | + + + + + + | CO2 | 26Comment: Testing | 23 - 32 mmol/L | EXTERNAL | | | | performed at [facility];[address] | | LAB | | | | [address];[place] | | | | | | [address] | | | | + + + + + + | Anion Gap | 13Comment: Testing | 5 - 20 mmol/L | EXTERNAL | | | | performed at [facility];[address] | | LAB | | | | [address];[place] | | | | | | [address] | | | | + + + + + + | Glucose, | 134 (H)Comment: Testing | 65 - 99 mg/dL | EXTERNAL | | | Fasting | performed at [facility];[address] | | LAB | | | | [address];[place] | | | | | | [address] | | | | + + + + + + | BUN | 9Comment: Testing | 8 - 25 mg/dL | EXTERNAL | | | | performed at [facility];[address] | | LAB | | | | [address];[place] | | | | | | [address] | | | | + + + + + + | Creatinine | 0.75Comment: Testing | 0.70 - 1.30 | EXTERNAL | | | | performed at [facility];[address] | mg/dL | LAB | | | | [address];[place] | | | | | | [address] | | | | + + + + + + | BUN/Creatin | 12Comment: Testing | | EXTERNAL | | | ine Ratio | performed at [facility];[address] | | LAB | | | | [address];[place] | | | | | | [address] | | | | + + + + + + | Calcium | 8.3 (L)Comment: NOTE NEW | 8.5 - 10.5 | EXTERNAL | | | | REFERENCE RANGETesting | mg/dL | LAB | | | | performed at [facility];[address] | | | | | | [address];[place] | | | | | | [address] | | | | + + + [...] | | | | | | at [facility];[address] [place] [address] | | | | | | [facility];[place] [address] | | | | + + + [...] EXTERNAL | | | | performed at [facility];[address] | mmol/L | LAB | | | | [address];[place], [place] | | | | | | [address] | | | | + + [...] | | | Fingerstick | performed at [facility];[address] | | LAB | | | | [address];[place] | | | | | | [address] | | | | + + + [...] 5.02 cm D-E Excursion: 1.80 cm E-F [place]: | | | 0.08 m/s EPSS: 0.51 [...] TV A Vishnu: 0.19 m/s TV Dec [place]: 1.11 m/s2 TV Dec Time: | | | 421.97 ms TV E Vishnu: 0.47 m/s TV E/A Ratio: 2.39 | | | Fruit Canner: GD Authenticated by: VISH ACOSTA MD Report [...] | Index (A-L): 25.12 ml/m2LAAs A2C: 17.63 [id number] A-L A2C: 49.96 mlLAESV MOD A2C: | | 47.06 mlLALs A2C: 5.28 cmLAAs A4C: 18.21 [id number] A-L A4C: 56.04 mlLAESV MOD A4C: | | 48.84 mlLALs A4C: 5.02 cmD-E Excursion: 1.80 cmE-F [place]: 0.08 m/sEPSS: 0.51 | | cmHR: 50.85 BPMAV maxP.46 mmHgAV meanP.08 mmHgAV Vmax: 1.16 m/Dmitry Vmean: | | 0.83 m/Dmitry VTI: 24.68 cmAVA Vmax: 3.04 cm2AVA (VTI): 2.96 [id number] Dopp: 1.67 | | [id number] Dopp: 3.62 l/minHR: 49.54 BPMLVOT maxP.42 mmHgLVOT [...] 1.86 m/sTV A Vishnu: 0.19 m/sTV Dec [place]: 1.11 m/s2TV | | Dec Time: 421.97 msTV E Vishnu: 0.47 m/sTV E/A Ratio: 2.39 Fruit Canner: | | GDAuthenticated by: [facility]ISH [facility]STA [facility] Date/Time: 10-14-2014 18:41:15 | | IMPRESSION: [...] | |D-E [place]curs[place]: 1.80 cm | |E-F [place]: 0.08 m/s | |EPSS: 0.51 cm | [...] A Vishnu: 0.19 m/s | |TV Dec [place]: 1.11 m/s2 | |TV Dec Time: 421.97 ms | |TV E Vishnu: 0.47 m/s | |TV E/A Ratio: 2.39 | | | |Fruit Canner: GD | |Authenticated by: VISH ACOSTA MD [...] | | | 5:24AM Referring Provider Line: [phone] ID: [id number] | | + + + [...] 2014 | | 5:24AM Referring Provider Line: [phone] ID: [id number] | | | |IMPRESSION: | [...] Oct 14 2014 5:24AM Referring Provider Line: [phone] ID: [id number] | + + External Lab: [...] | | | | | [place] [address] | | | | + + + + + + | RED CELL | 2.96 (L)Comment: Testing | 4.20 - 5.70 | EXTERNAL | | | COUNT | performed at [facility], [address] | M/uL | LAB | | | | [address], | | | | | | [place] [address] | | | | + + + + + + | Hgb | 9.7 (L)Comment: Testing | 13.2 - 17.0 | EXTERNAL | | | | performed at [facility], [address] | g/dL | LAB | | | | [address], | | | | | | [place] [address] | | | | + + + + + + | Hematocrit, | 29.4 (L)Comment: Testing | 39.0 - 50.0 % | EXTERNAL | | | POC | performed at [facility], [address] | | LAB | | | | [address], | | | | | | [place] [address] | | | | + + + + + + | MCV | 99.5Comment: Testing | 80.0 - 100.0 fl | EXTERNAL | | | | performed at [facility], [address] | | LAB | | | | [address], | | | | | | [place] [address] | | | | + + + + + + | MCH | 32.7Comment: Testing | 27.0 - 34.0 pg | EXTERNAL | | | | performed at [facility], [address] | | LAB | | | | [address], | | | | | | [place] [address] | | | | + + + + + + | MCHC | 32.9Comment: Testing | 32.0 - 35.5 | EXTERNAL | | | | performed at [facility], [address] | g/dL | LAB | | | | [address], | | | | | | [place] [address] | | | | + + + + + + | RDW-CV | 59.1 (H)Comment: Testing | 37 - 53 fl | EXTERNAL | | | | performed at [facility], [address] | | LAB | | | | [address], | | | | | | [place] [address] | | | | + + + + + + | Platelet | 124 (L)Comment: Testing | 150 - 400 K/uL | EXTERNAL | | | Count | performed at [facility], [address] | | LAB | | | Plasma | [address], | | | | | | [place] [address] | | | | + + + + + + | MPV | 8.6Comment: Testing | fl | EXTERNAL | | | | performed at [facility], [address] | | LAB | | | | [address], | | | | | | [place] [address] | | | | + + + + + + | Differentia | AUTOMATEDComment: | | EXTERNAL | | | l Type | Testing performed at | | LAB | | | | [facility], [address] | | | | | | [place] | | | | | | [address] | | | | + + + + + + | % Segmented | 81.9Comment: Testing | % | EXTERNAL | | | | performed at [facility], [address] | | LAB | | | Neutrophils | [address], | | | | | | [place] [address] | | | | + + + + + + | % | 7.9Comment: Testing | % | EXTERNAL | | | Lymphocytes | performed at [facility], [address] | | LAB | | | | [address], | | | | | | [place] [address] | | | | + + + + + + | % Monocytes | 9.3Comment: Testing | % | EXTERNAL | | | | performed at [facility], [address] | | LAB | | | | [address], | | | | | | [place] [address] | | | | + + + + + + | % | 0.7Comment: Testing | % | EXTERNAL | | | Eosinophils | performed at [facility], [address] | | LAB | | | | [address], | | | | | | [place] [address] | | | | + + + + + + | % Basophils | 0.2Comment: Testing | % | EXTERNAL | | | | performed at [facility], [address] | | LAB | | | | [address], | | | | | | [place] [address] | | | | + + + + + + | Absolute | 8.0 (H)Comment: Testing | 1.9 - 7.4 K/uL | EXTERNAL | | | Segmented | performed at [facility], [address] | | LAB | | | Neutrophils | [address], | | | | | | [place] [address] | | | | + + + + + + | Absolute | 0.8 (L)Comment: Testing | 1.0 - 3.9 K/uL | EXTERNAL | | | Lymphocytes | performed at [facility], [address] | | LAB | | | | [address], | | | | | | [place] [address] | | | | + + + + + + | Absolute | 0.9 (H)Comment: Testing | 0 - 0.8 K/uL | EXTERNAL | | | Monocytes | performed at [facility], [address] | | LAB | | | | [address], | | | | | | [place] [address] | | | | + + + + + + | Absolute | 0.1Comment: Testing | 0 - 0.5 K/uL | EXTERNAL | | | Eosinophils | performed at [facility], [address] | | LAB | | | | [address], | | | | | | [place] [address] | | | | + + + + + + | Absolute | 0.0Comment: Testing | 0 - 0.1 K/uL | EXTERNAL | | | Basophils | performed at [facility], [address] | | LAB | | | | [address], | | | | | | [place] [address] | | | | + + + [...] | | | | | [place] [address] | | | | + + + + + + | K | 3.8Comment: Testing | 3.5 - 4.9 | EXTERNAL | | | | performed at [facility], [address] | mmol/L | LAB | | | | [address], | | | | | | [place] [address] | | | | + + + + + + | Cl | 109Comment: Testing | 99 - 109 mmol/L | EXTERNAL | | | | performed at [facility], [address] | | LAB | | | | [address], | | | | | | [place] [address] | | | | + + + + + + | CO2 | 22 (L)Comment: Testing | 23 - 32 mmol/L | EXTERNAL | | | | performed at [facility], [address] | | LAB | | | | [address], | | | | | | [place] [address] | | | | + + + + + + | Anion Gap | 9Comment: Testing | 5 - 20 mmol/L | EXTERNAL | | | | performed at [facility], [address] | | LAB | | | | [address], | | | | | | [place] [address] | | | | + + + + + + | Glucose, | 174 (H)Comment: Testing | 65 - 99 mg/dL | EXTERNAL | | | Fasting | performed at [facility], [address] | | LAB | | | | [address], | | | | | | [place] [address] | | | | + + + + + + | BUN | 9Comment: Testing | 8 - 25 mg/dL | EXTERNAL | | | | performed at [facility], [address] | | LAB | | | | [address], | | | | | | [place] [address] | | | | + + + + + + | Creatinine | 0.50 (L)Comment: Testing | 0.70 - 1.30 | EXTERNAL | | | | performed at [facility], [address] | mg/dL | LAB | | | | [address], | | | | | | [place] [address] | | | | + + + + + + | BUN/Creatin | 18Comment: Testing | | EXTERNAL | | | ine Ratio | performed at [facility], [address] | | LAB | | | | [address], | | | | | | [place] [address] | | | | + + + + + + | Calcium | 7.7 (L)Comment: NOTE NEW | 8.5 - 10.5 | EXTERNAL | | | | REFERENCE RANGETesting | mg/dL | LAB | | | | performed at [facility], [address] | | | | | | [facility], | | | | | | [place] [address] | | | | + + + [...] | | | | | | at [facility], [address] | | | | | | [facility], | | | | | | [place] [address] | | | | + + + [...] EXTERNAL | | | | performed at [facility] | | LAB | | | | [address];[place], [place] | | | | | | [address] | | | | + + + [...] | | | | | | at [facility];[address] | | | | | | [address];[place] [address] | | | | + + + [...] EXTERNAL | | | | performed at [facility];[address] | mmol/L | LAB | | | | [address];[place], [place] | | | | | | [address] | | | | + + + [...] Marlon Santamaria Conversion - 05/05/2019 12:20 AM [facility] [id number] yearsXR | | CHEST 1 VIEW10/13/2014 3:50 [...] | | | | | [place] [address] | | | | + + + + + + | RED CELL | 2.98 (L)Comment: Testing | 4.20 - 5.70 | EXTERNAL | | | COUNT | performed at [facility], [address] | M/uL | LAB | | | | [address], | | | | | | [place] [address] | | | | + + + + + + | Hgb | 9.7 (L)Comment: Testing | 13.2 - 17.0 | EXTERNAL | | | | performed at [facility], [address] | g/dL | LAB | | | | [address], | | | | | | [place] [address] | | | | + + + + + + | Hematocrit, | 29.8 (L)Comment: Testing | 39.0 - 50.0 % | EXTERNAL | | | POC | performed at [facility], [address] | | LAB | | | | [address], | | | | | | [place] [address] | | | | + + + + + + | MCV | 100.1 (H)Comment: | 80.0 - 100.0 fl | EXTERNAL | | | | Testing performed at | | LAB | | | | [facility], [address] [facility] | | | | | | [place] | | | | | | [address] | | | | + + + + + + | MCH | 32.5Comment: Testing | 27.0 - 34.0 pg | EXTERNAL | | | | performed at [facility], [address] | | LAB | | | | [address], | | | | | | [place] [address] | | | | + + + + + + | MCHC | 32.5Comment: Testing | 32.0 - 35.5 | EXTERNAL | | | | performed at [facility], [address] | g/dL | LAB | | | | [address], | | | | | | [place] [address] | | | | + + + + + + | RDW-CV | 60.4 (H)Comment: Testing | 37 - 53 fl | EXTERNAL | | | | performed at [facility], [address] | | LAB | | | | [address], | | | | | | [place] [address] | | | | + + + + + + | Platelet | 107 (L)Comment: Testing | 150 - 400 K/uL | EXTERNAL | | | Count | performed at [facility], [address] | | LAB | | | Plasma | [address], | | | | | | [place] [address] | | | | + + + + + + | MPV | 8.6Comment: Testing | fl | EXTERNAL | | | | performed at [facility], [address] | | LAB | | | | [address], | | | | | | [place] [address] | | | | + + + + + + | Differentia | AUTOMATEDComment: | | EXTERNAL | | | l Type | Testing performed at | | LAB | | | | [facility], [address] | | | | | | [place] | | | | | | [address] | | | | + + + + + + | % Segmented | 78.6Comment: Testing | % | EXTERNAL | | | | performed at [facility], [address] | | LAB | | | Neutrophils | [address], | | | | | | [place] [address] | | | | + + + + + + | % | 9.1Comment: Testing | % | EXTERNAL | | | Lymphocytes | performed at [facility], [address] | | LAB | | | | [address], | | | | | | [place] [address] | | | | + + + + + + | % Monocytes | 11.3Comment: Testing | % | EXTERNAL | | | | performed at [facility], [address] | | LAB | | | | [address], | | | | | | [place] [address] | | | | + + + + + + | % | 0.5Comment: Testing | % | EXTERNAL | | | Eosinophils | performed at [facility], [address] | | LAB | | | | [address], | | | | | | [place] [address] | | | | + + + + + + | % Basophils | 0.5Comment: Testing | % | EXTERNAL | | | | performed at [facility], [address] | | LAB | | | | [address], | | | | | | [place] [address] | | | | + + + + + + | Absolute | 5.6Comment: Testing | 1.9 - 7.4 K/uL | EXTERNAL | | | Segmented | performed at [facility], [address] | | LAB | | | Neutrophils | [address], | | | | | | [place] [address] | | | | + + + + + + | Absolute | 0.6 (L)Comment: Testing | 1.0 - 3.9 K/uL | EXTERNAL | | | Lymphocytes | performed at [facility], [address] | | LAB | | | | [address], | | | | | | [place] [address] | | | | + + + + + + | Absolute | 0.8Comment: Testing | 0 - 0.8 K/uL | EXTERNAL | | | Monocytes | performed at [facility], [address] | | LAB | | | | [address], | | | | | | [place] [address] | | | | + + + + + + | Absolute | 0.0Comment: Testing | 0 - 0.5 K/uL | EXTERNAL | | | Eosinophils | performed at [facility], [address] | | LAB | | | | [address], | | | | | | [place] [address] | | | | + + + + + + | Absolute | 0.0Comment: Testing | 0 - 0.1 K/uL | EXTERNAL | | | Basophils | performed at [facility], [address] | | LAB | | | | [address], | | | | | | [place] [address] | | | | + + + [...] | | | | | [place] [address] | | | | + + + + + + | K | 3.4 (L)Comment: Testing | 3.5 - 4.9 | EXTERNAL | | | | performed at [facility], [address] | mmol/L | LAB | | | | [address], | | | | | | [place] [address] | | | | + + + + + + | Cl | 112 (H)Comment: Testing | 99 - 109 mmol/L | EXTERNAL | | | | performed at [facility], [address] | | LAB | | | | [address], | | | | | | [place] [address] | | | | + + + + + + | CO2 | 19 (L)Comment: Testing | 23 - 32 mmol/L | EXTERNAL | | | | performed at [facility], [address] | | LAB | | | | [address], | | | | | | [place] [address] | | | | + + + + + + | Anion Gap | 10Comment: Testing | 5 - 20 mmol/L | EXTERNAL | | | | performed at [facility], [address] | | LAB | | | | [address], | | | | | | [place] [address] | | | | + + + + + + | Glucose, | 133 (H)Comment: Testing | 65 - 99 mg/dL | EXTERNAL | | | Fasting | performed at [facility], [address] | | LAB | | | | [address], | | | | | | [place] [address] | | | | + + + + + + | BUN | 5 (L)Comment: Testing | 8 - 25 mg/dL | EXTERNAL | | | | performed at [facility], [address] | | LAB | | | | [address], | | | | | | [place] [address] | | | | + + + + + + | Creatinine | 0.47 (L)Comment: Testing | 0.70 - 1.30 | EXTERNAL | | | | performed at [facility], [address] | mg/dL | LAB | | | | [address], | | | | | | [place] [address] | | | | + + + + + + | BUN/Creatin | 11Comment: Testing | | EXTERNAL | | | ine Ratio | performed at [facility], [address] | | LAB | | | | [address], | | | | | | [place] [address] | | | | + + + + + + | Calcium | 7.8 (L)Comment: NOTE NEW | 8.5 - 10.5 | EXTERNAL | | | | REFERENCE RANGETesting | mg/dL | LAB | | | | performed at [facility], [address] | | | | | | [facility], | | | | | | [place] [address] | | | | + + + [...] | | | | | | at [facility], [address] | | | | | | [facility], | | | | | | [place] [address] | | | | + + + [...] LAB | | | | performed at [facility];[address] | | | | | | [address];[place] | | | | | | [address] | | | | + + + [...] LAB | | | | performed at [facility];[address] | | | | | | [address];[place], [place] | | | | | | [address] | | | | + + + [...] | | | | | performed at [facility] | | | | | | [address];[place], [place] | | | | | | [address] | | | | + + [...] | | | | | [place] [address] | | | | + + + + + + | RED CELL | 3.39 (L)Comment: Testing | 4.20 - 5.70 | EXTERNAL | | | COUNT | performed at [facility], [address] | M/uL | LAB | | | | [address], | | | | | | [place] [address] | | | | + + + + + + | Hgb | 11.1 (L)Comment: Testing | 13.2 - 17.0 | EXTERNAL | | | | performed at [facility], [address] | g/dL | LAB | | | | [address], | | | | | | [place] [address] | | | | + + + + + + | Hematocrit, | 33.5 (L)Comment: Testing | 39.0 - 50.0 % | EXTERNAL | | | POC | performed at [facility], [address] | | LAB | | | | [address], | | | | | | [place] [address] | | | | + + + + + + | MCV | 98.6Comment: Testing | 80.0 - 100.0 fl | EXTERNAL | | | | performed at [facility], [address] | | LAB | | | | [address], | | | | | | [place] [address] | | | | + + + + + + | MCH | 32.7Comment: Testing | 27.0 - 34.0 pg | EXTERNAL | | | | performed at [facility], [address] | | LAB | | | | [address], | | | | | | [place] [address] | | | | + + + + + + | MCHC | 33.1Comment: Testing | 32.0 - 35.5 | EXTERNAL | | | | performed at [facility], [address] | g/dL | LAB | | | | [address], | | | | | | [place] [address] | | | | + + + + + + | RDW-CV | 59.5 (H)Comment: Testing | 37 - 53 fl | EXTERNAL | | | | performed at [facility], [address] | | LAB | | | | [address], | | | | | | [place] [address] | | | | + + + + + + | Platelet | 138 (L)Comment: Testing | 150 - 400 K/uL | EXTERNAL | | | Count | performed at [facility], [address] | | LAB | | | Plasma | [address], | | | | | | [place] [address] | | | | + + + [...] [place] | | | | | | [address] | | | | + + + + + + | % Segmented | 79.3Comment: Testing | % | EXTERNAL | | | | performed at [facility], [address] | | LAB | | | Neutrophils | [address], | | | | | | [place] [address] | | | | + + + + + + | % | 7.8Comment: Testing | % | EXTERNAL | | | Lymphocytes | performed at [facility], [address] | | LAB | | | | [address], | | | | | | [place] [address] | | | | + + + + + + | % Monocytes | 12.1Comment: Testing | % | EXTERNAL | | | | performed at [facility], [address] | | LAB | | | | [address], | | | | | | [place] [address] | | | | + + + + + + | % | 0.3Comment: Testing | % | EXTERNAL | | | Eosinophils | performed at [facility], [address] | | LAB | | | | [address], | | | | | | [place] [address] | | | | + + + + + + | % Basophils | 0.5Comment: Testing | % | EXTERNAL | | | | performed at [facility], [address] | | LAB | | | | [address], | | | | | | [place] [address] | | | | + + + + + + | Absolute | 7.2Comment: Testing | 1.9 - 7.4 K/uL | EXTERNAL | | | Segmented | performed at [facility], [address] | | LAB | | | Neutrophils | [address], | | | | | | [place] [address] | | | | + + + + + + | Absolute | 0.7 (L)Comment: Testing | 1.0 - 3.9 K/uL | EXTERNAL | | | Lymphocytes | performed at [facility], [address] | | LAB | | | | [address], | | | | | | [place] [address] | | | | + + + + + + | Absolute | 1.1 (H)Comment: Testing | 0 - 0.8 K/uL | EXTERNAL | | | Monocytes | performed at [facility], [address] | | LAB | | | | [address], | | | | | | [place] [address] | | | | + + + + + + | Absolute | 0.0Comment: Testing | 0 - 0.5 K/uL | EXTERNAL | | | Eosinophils | performed at [facility], [address] | | LAB | | | | [address], | | | | | | [place] [address] | | | | + + + + + + | Absolute | 0.0Comment: Testing | 0 - 0.1 K/uL | EXTERNAL | | | Basophils | performed at [facility], [address] | | LAB | | | | [address], | | | | | | [place] [address] | | | | + + + [...] EXTERNAL | | | | performed at [facility], [address] | | LAB | | | | [address], | | | | | | [place] [address] | | | | + + + [...] | | | | | [place] [address] | | | | + + + + + + | K | 2.8 (L)Comment: Testing | 3.5 - 4.9 | EXTERNAL | | | | performed at [facility], [address] | mmol/L | LAB | | | | [address], | | | | | | [place] [address] | | | | + + + + + + | Cl | 105Comment: Testing | 99 - 109 mmol/L | EXTERNAL | | | | performed at [facility], [address] | | LAB | | | | [address], | | | | | | [place] [address] | | | | + + + + + + | CO2 | 23Comment: Testing | 23 - 32 mmol/L | EXTERNAL | | | | performed at [facility], [address] | | LAB | | | | [address], | | | | | | [place] [address] | | | | + + + + + + | Anion Gap | 9Comment: Testing | 5 - 20 mmol/L | EXTERNAL | | | | performed at [facility], [address] | | LAB | | | | [address], | | | | | | [place] [address] | | | | + + + + + + | Glucose, | 163 (H)Comment: Testing | 65 - 99 mg/dL | EXTERNAL | | | Fasting | performed at [facility], [address] | | LAB | | | | [address], | | | | | | [place] [address] | | | | + + + + + + | BUN | 7 (L)Comment: Testing | 8 - 25 mg/dL | EXTERNAL | | | | performed at [facility], [address] | | LAB | | | | [address], | | | | | | [place] [address] | | | | + + + + + + | Creatinine | 0.57 (L)Comment: Testing | 0.70 - 1.30 | EXTERNAL | | | | performed at [facility], [address] | mg/dL | LAB | | | | [address], | | | | | | [place] [address] | | | | + + + + + + | BUN/Creatin | 12Comment: Testing | | EXTERNAL | | | ine Ratio | performed at [facility], [address] | | LAB | | | | [address], | | | | | | [place] [address] | | | | + + + + + + | Calcium | 7.8 (L)Comment: NOTE NEW | 8.5 - 10.5 | EXTERNAL | | | | REFERENCE RANGETesting | mg/dL | LAB | | | | performed at [facility], [address] | | | | | | [address], | | | | | | [place] [address] | | | | + + + [...] | | | | | | at [facility], [address] | | | | | | [address], | | | | | | [place] [address] | | | | + + + [...] EXTERNAL | | | | performed at [facility];[address] | | LAB | | | | [address];[place] | | | | | | [address] | | | | + + + + + + | RED CELL | 3.63 (L)Comment: Testing | 4.20 - 5.70 | EXTERNAL | | | COUNT | performed at [facility];[address] | M/uL | LAB | | | | [address];[place] | | | | | | [address] | | | | + + + + + + | Hgb | 10.9 (L)Comment: Testing | 13.2 - 17.0 | EXTERNAL | | | | performed at [facility];[address] | g/dL | LAB | | | | [address];[place] | | | | | | [address] | | | | + + + + + + | Hematocrit, | 34.9 (L)Comment: Testing | 39.0 - 50.0 % | EXTERNAL | | | POC | performed at [facility];[address] | | LAB | | | | [address];[place] | | | | | | [address] | | | | + + + + + + | MCV | 96.2Comment: Testing | 80.0 - 100.0 fl | EXTERNAL | | | | performed at [facility];[address] | | LAB | | | | [address];[place] | | | | | | [address] | | | | + + + + + + | MCH | 30.0Comment: Testing | 27.0 - 34.0 pg | EXTERNAL | | | | performed at [facility];[address] | | LAB | | | | [address];[place] | | | | | | [address] | | | | + + + + + + | MCHC | 31.2 (L)Comment: Testing | 32.0 - 35.5 | EXTERNAL | | | | performed at [facility];[address] | g/dL | LAB | | | | [address];[place] | | | | | | [address] | | | | + + + + + + | RDW-CV | 58.6 (H)Comment: Testing | 37 - 53 fl | EXTERNAL | | | | performed at [facility];[address] | | LAB | | | | [address];[place] | | | | | | [address] | | | | + + + + + + | Platelet | 164Comment: Testing | 150 - 400 K/uL | EXTERNAL | | | Count | performed at [facility];[address] | | LAB | | | Plasma | [address];[place] | | | | | | [address] | | | | + + + + + + | MPV | 7.8Comment: Testing | fl | EXTERNAL | | | | performed at [facility];[address] | | LAB | | | | [address];[place] | | | | | | [address] | | | | + + + + + + | Differentia | AUTOMATEDComment: | | EXTERNAL | | | l Type | Testing performed at | | LAB | | | | [facility];[address];[place] [address] | | | | + + + + + + | % Segmented | 72.3Comment: Testing | % | EXTERNAL | | | | performed at [facility];[address] | | LAB | | | Neutrophils | [address];[place] | | | | | | [address] | | | | + + + + + + | % | 13.2Comment: Testing | % | EXTERNAL | | | Lymphocytes | performed at [facility];[address] | | LAB | | | | [address];[place] | | | | | | [address] | | | | + + + + + + | % Monocytes | 13.4Comment: Testing | % | EXTERNAL | | | | performed at [facility];[address] | | LAB | | | | [address];[place] | | | | | | [address] | | | | + + + + + + | % | 0.3Comment: Testing | % | EXTERNAL | | | Eosinophils | performed at [facility];[address] | | LAB | | | | [address];[place] | | | | | | [address] | | | | + + + + + + | % Basophils | 0.8Comment: Testing | % | EXTERNAL | | | | performed at [facility];[address] | | LAB | | | | [address];[place] | | | | | | [address] | | | | + + + + + + | Absolute | 7.0Comment: Testing | 1.9 - 7.4 K/uL | EXTERNAL | | | Segmented | performed at [facility];[address] | | LAB | | | Neutrophils | [address];[place] | | | | | | [address] | | | | + + + + + + | Absolute | 1.3Comment: Testing | 1.0 - 3.9 K/uL | EXTERNAL | | | Lymphocytes | performed at [facility];[address] | | LAB | | | | [address];[place] | | | | | | [address] | | | | + + + + + + | Absolute | 1.3 (H)Comment: Testing | 0 - 0.8 K/uL | EXTERNAL | | | Monocytes | performed at [facility];[address] | | LAB | | | | [address];[place] | | | | | | [address] | | | | + + + + + + | Absolute | 0.0Comment: Testing | 0 - 0.5 K/uL | EXTERNAL | | | Eosinophils | performed at [facility];[address] | | LAB | | | | [address];[place] | | | | | | [address] | | | | + + + + + + | Absolute | 0.1Comment: Testing | 0 - 0.1 K/uL | EXTERNAL | | | Basophils | performed at [facility];[address] | | LAB | | | | [address];[place], [place] | | | | | | [address] | | | | + + + [...] EXTERNAL LAB | | Testing performed at [facility];[address] [place] [address];[place] [address] MRSA PCR | | | NEGATIVE Testing performed at | | | [address];[place] [address] | | + + + + +---------+ [...] REMY | | | Testing performed at [facility], [address] [place], [place] | | | [address] | | + + + + +---------+ [...] EXTERNAL | | | | performed at [facility];[address] | | LAB | | | | [address];[place] | | | | | | [address] | | | | + + + [...] EXTERNAL | | | | performed at [facility];[address] | | LAB | | | | [address];[place], [place] | | | | | | [address] | | | | + + + [...] | | | Total | performed at [facility];[address] | | LAB | | | | [address];[place] | | | | | | [address] | | | | + + + + + + | Albumin | 2.8 (L)Comment: Testing | 3.6 - 5.0 g/dL | EXTERNAL | | | | performed at [facility];[address] | | LAB | | | | [address];[place] | | | | | | [address] | | | | + + + + + + | Bilirubin | 1.6 (H)Comment: Testing | 0.1 - 1.5 mg/dL | EXTERNAL | | | Total | performed at [facility];[address] | | LAB | | | | [address];[place] | | | | | | [address] | | | | + + + + + + | Bilirubin | 0.6 (H)Comment: Testing | 0.0 - 0.3 mg/dL | EXTERNAL | | | Direct | performed at [facility];[address] | | LAB | | | | [address];[place] | | | | | | [address] | | | | + + + + + + | ALP, | 138 (H)Comment: Testing | 35 - 115 U/L | EXTERNAL | | | External | performed at [facility];[address] | | LAB | | | | [address];[place] | | | | | | [address] | | | | + + + + + + | AST | 61 (H)Comment: Testing | 10 - 45 U/L | EXTERNAL | | | | performed at [facility];[address] | | LAB | | | | [address];[place] | | | | | | [address] | | | | + + + + + + | ALT | 54Comment: Testing | 10 - 65 U/L | EXTERNAL | | | | performed at [facility];[address] | | LAB | | | | [address];[place] | | | | | | [address] | | | | + + + [...] 11 October 2014. | | | FINDINGS: Final Expense Agent is unremarkable. The patient is post interval [...] examination: 11 October 2014. | | FINDINGS: Final Expense Agent is unremarkable. The patient is post interval [...] EXTERNAL | | | | performed at [facility];[address] | mmol/L | LAB | | | | [address];[place] | | | | | | [address] | | | | + + + + + + | K | 2.7 (LL)Comment: RESULT | 3.5 - 4.9 | EXTERNAL | | | | READ BACK BY:TAYA TYLER OR | mmol/L | LAB | | | | AT 2012 BY FANNY ON | | | | | | [id number] performed | | | | | | at [facility];[address];[place] [address] | | | | + + + + + + | Cl | 102Comment: Testing | 99 - 109 mmol/L | EXTERNAL | | | | performed at [facility];[address] | | LAB | | | | [address];[place] | | | | | | [address] | | | | + + + + + + | CO2 | 25Comment: Testing | 23 - 32 mmol/L | EXTERNAL | | | | performed at [facility];[address] | | LAB | | | | [address];[place] | | | | | | [address] | | | | + + + + + + | Anion Gap | 14Comment: Testing | 5 - 20 mmol/L | EXTERNAL | | | | performed at [facility];[address] | | LAB | | | | [address];[place] | | | | | | [address] | | | | + + + + + + | Glucose, | 143 (H)Comment: Testing | 65 - 99 mg/dL | EXTERNAL | | | Fasting | performed at [facility];[address] | | LAB | | | | [address];[place] | | | | | | [address] | | | | + + + + + + | BUN | 7 (L)Comment: Testing | 8 - 25 mg/dL | EXTERNAL | | | | performed at [facility];[address] | | LAB | | | | [address];[place] | | | | | | [address] | | | | + + + + + + | Creatinine | 0.68 (L)Comment: Testing | 0.70 - 1.30 | EXTERNAL | | | | performed at [facility];[address] | mg/dL | LAB | | | | [address];[place] | | | | | | [address] | | | | + + + + + + | BUN/Creatin | 10Comment: Testing | | EXTERNAL | | | ine Ratio | performed at [facility];[address] | | LAB | | | | [address];[place] | | | | | | [address] | | | | + + + + + + | Calcium | 7.3 (L)Comment: NOTE NEW | 8.5 - 10.5 | EXTERNAL | | | | REFERENCE RANGETesting | mg/dL | LAB | | | | performed at [facility];[address] | | | | | | [facility];[place], [place] | | | | | | [address] | | | | + + + [...] | | | | | | at [facility];[address] [facility] | | | | | | [address];[place] [address] | | | | + + + [...] | | LAB | | | | [facility];[address];[place] [address] | | | | + + + + + + | PCO2 ART | 33 (L)Comment: Testing | 35 - 45 mmHg | EXTERNAL | | | | performed at [facility];[address] | | LAB | | | | [address];[place] | | | | | | [address] | | | | + + + + + + | PO2 ART | 225 (H)Comment: Testing | 80 - 105 mmHg | EXTERNAL | | | | performed at [facility];[address] | | LAB | | | | [address];[place] | | | | | | [address] | | | | + + + + + + | HCO3 ART | 28 (H)Comment: Testing | 22 - 26 mmol/L | EXTERNAL | | | | performed at [facility];[address] | | LAB | | | | [address];[place] | | | | | | [address] | | | | + + + + + + | POC | 29 (H)Comment: Testing | 23 - 27 mEq/L | EXTERNAL | | | APPEARANCE | performed at [facility];[address] | | LAB | | | UA | [address];[place] | | | | | | [address] | | | | + + + + + + | Base | 6 (H)Comment: Testing | 0 - 3 mEq/L | EXTERNAL | | | Excess, | performed at [facility];[address] | | LAB | | | Arterial | [address];[place] | | | | | | [address] | | | | + + + + + + | O2 SAT ART | 100 (H)Comment: Testing | 95 - 98 % | EXTERNAL | | | | performed at [facility];[address] | | LAB | | | | [address];[place] | | | | | | [address] | | | | + + + + + + | Sodium, POC | 138Comment: Testing | 135 - 145 mEq/L | EXTERNAL | | | | performed at [facility];[address] | | LAB | | | | [address];[place] | | | | | | [address] | | | | + + + + + + | Potassium, | 2.6 (LL)Comment: Testing | 3.5 - 5.0 mEq/L | EXTERNAL | | | POC | performed at [facility];[address] | | LAB | | | | [address];[place] | | | | | | [address] | | | | + + + + + + | Ionized | 0.98 (L)Comment: Testing | 1.12 - 1.32 | EXTERNAL | | | Calcium, | performed at [facility];888 | mmol/L | LAB | | | POC | [address];[place] | | | | | | [address] | | | | + + + + + + | Glucose, | 146 (H)Comment: Testing | 65 - 99 mg/dL | EXTERNAL | | | POC | performed at [facility];[address] | | LAB | | | | [address];[place] | | | | | | [address] | | | | + + + + + + | Hematocrit, | 35 (L)Comment: Testing | 40.0 - 50.0 % | EXTERNAL | | | POC | performed at [facility];[address] | | LAB | | | | [address];[place] | | | | | | [address] | | | | + + + + + + | Hemoglobin, | 11.9 (L)Comment: Testing | 13.7 - 16.7 | EXTERNAL | | | POC | performed at [facility];888 | g/dL | LAB | | | | [address];[place] | | | | | | [address] | | | | + + + [...]
--- OUTSIDE RECORDS SUMMARY | ~2019-10-02 | XMS | Encounter Summary ---
Demographics + + + | Address | [address] | | | [place] [address] | + + + | Home Phone | | + + + | Preferred Language | Unknown | + + + | Marital Status | Single | + + + | Evangelical Affiliation | Unknown | + + + | Race | White | + + + | Ethnic Group | Not or | + + + Author + + + | Author | [facility] | + + + | Organization | [facility] | + + + | Address [...] Providers + +------+ + | Care Medical Coding Instructor Name | Role | Phone | [...]
--- OUTSIDE RECORDS SUMMARY | ~2019-10-02 | XMS | Encounter Summary ---
Demographics + + + | Address | [address] | | | [place] [address] | + + + | Home Phone [...] Team Providers + +------+ + | Care Real Estate Branch Manager Name | Role | Phone | [...] | 2009 | on | Center at [facility] [address] | ([place] 05/30/2010 no | | | | [address] | [address] [place], [place] | HCC) | | | | Mailcode: OCD | [address] | | | | | [facility] | [phone] | | | | | and Healing, | | | | | | [address] | | | | | | [place], [place] | | | | | | [address] | | | | | | [phone] | | | +--------+ + + + [...]
--- OUTSIDE RECORDS SUMMARY | ~2019-10-02 | XMS | Encounter Summary ---
Demographics + + + | Address | [address] | | | [place] [address] | + + + | Home Phone [...] Providers + +------+ + | Care Manager Organizational Name | Role | Phone | + [...] + + | 07/06/ | Telephone | Chase | Tony Yuan, | Other (cancelling | | 2019 | | Orthopedics [address] | appointment ) | | | | [address] | [facility] [address] | | | | | [place], [place] | [place] [address] | | | | | [address] | [phone] | | | | | [phone] | | | +--------+ + + + [...] | | | | | | [address] [facility] [address] | | | | | | [place] [address] | | | | | | [phone] | | | | | | | | +--------+---------+ + + + documented as of this encounter Visit Diagnoses Not on filedocumented in this encounter"
--- OUTSIDE RECORDS SUMMARY | ~2019-10-02 | XMS | Encounter Summary ---
Demographics + + + | Address | [address] | | | [place] [address] | + + + | Home Phone [...] Team Providers + +------+ + | Care Jewelry Making Instructor Name | Role | Phone | + +------+ + PCP | Unavailable | + +------+ + Encounter Details +--------+ + + + + | Date | Type | Department | Care Team | Description | +--------+ + + + + | 02/17/ | Results | Orthopaedics at | Jose, | | | 2002 | Only | [facility] [address] | MD Manuelito | | | | | [address] | | | | | | Mailcode: [id number] | | | | | | [facility] | | | | | | [place], [place] | | | | | | [address] | | | | | | [phone] | | | +--------+ + + + [...]
--- OUTSIDE RECORDS SUMMARY | ~2019-10-02 | XMS | Encounter Summary ---
Demographics + + + | Address | [address] | | | [place] [address] | + + + | Home Phone | | + + + | Preferred Language | Unknown | + + + | Marital Status | Single | + + + | Jainism Affiliation [...] Providers + +------+ + | Care Wood Carving Lathe Operator Name | Role | Phone | + +------+ + PCP | Unavailable | + +------+ + Encounter Details +--------+ + + + + | Date | Type | Department | Care Team | Description | +--------+ + + + + | 12/27/ | Abstract | Digestive Health | Azeem Dietrich | | | 2011 | | [place] [address] [address] | MD Travis [address] | | | | | [address] | [place], [place] | | | | | Mailcode: OC8D | [phone] | | | | | [facility] | [phone] | | | | | and [address], | | | | | | [address] | | | | | | [place], [place] | | | | | | [address] | | | | | | [phone] | | | +--------+ + + + [...]
--- OUTSIDE RECORDS SUMMARY | ~2019-10-02 | XMS | Encounter Summary ---
Demographics + + + | Address | [address] | | | [place] [address] | + + + | Home Phone [...] Team Providers + +------+ + | Care Metal Drilling Machine Operator Name | Role | Phone [...] | | | | [address] [place], | [place], [place] | office) | | | | [place] [address] | [address] | | | | | [phone] | | | +--------+ + + + [...]
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
[2019-10-02] MEDS ORDERED: PERCOCET 5-3251 EACH PO (19:12)
== END 2019-10-02 19:44 | disposition home or self-care (01) ==
LOC: ED 15:49
DX: S32.021D Stable burst fracture of second lumbar vertebra, subsequent encounter for fracture with routine healing (principal); E11.9 Type 2 diabetes mellitus without complications; Z88.0 Allergy status to penicillin
CPT/HCPCS: 72110; 99283-25

== ENCOUNTER 2019-10-27 17:37 | Emergency (ER) | payer OTHER ==
[~2019-10-27] VITALS: Ht 177.8 cm; Wt 106.6 kg
[~2019-10-27 17:37] MED LIST changes: +PERCOCET 5-3251 EACH PO
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
[2019-10-27] MEDS ORDERED: ULTRAM50 MG PO (18:26)
== END 2019-10-27 18:37 | disposition home or self-care (01) ==
LOC: ED 17:37
DX: M54.5 Low back pain (principal); E11.9 Type 2 diabetes mellitus without complications; Z88.0 Allergy status to penicillin
CPT/HCPCS: 99283

== ENCOUNTER 2019-12-02 16:01 | Emergency (ER) | payer OTHER ==
[~2019-12-02] VITALS: Ht 177.8 cm; Wt 106.6 kg
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
== END 2019-12-02 19:05 | disposition home or self-care (01) ==
LOC: ED 16:01
DX: K13.79 Other lesions of oral mucosa (principal)

== ENCOUNTER → 2020-01-06 | Emergency (ER) | payer OTHER ==
[~2020-01-06] VITALS: Ht 177.8 cm; Wt 106.6 kg
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
== END ==
LOC: ED 18:31
DX: M54.5 Low back pain (principal); M79.601 Pain in right arm; G89.29 Other chronic pain; E11.9 Type 2 diabetes mellitus without complications; Z88.0 Allergy status to penicillin; Z79.899 Other long term (current) drug therapy
CPT/HCPCS: 72100; 73090; 99283-25

== ENCOUNTER 2020-03-25 22:20 | Emergency (ER) | payer OTHER ==
[~2020-03-25] VITALS: Ht 177.8 cm; Wt 106.6 kg
--- OUTSIDE RECORDS SUMMARY | ~2020-03-25 | XMS | Encounter Summary ---
Demographics + + + | Address | [address] | | | [place] [address] | + + + | Home Phone | | + + + | Preferred Language | Unknown | + + + | Marital Status | Single | + + + | Mu-Ism Affiliation | Unknown | + + + | Race | White | + + + | Ethnic Group | Not or | + + + Author + + + | Author | [facility] | + + + | Organization | [facility] | + + + | Address | Unknown | + + + | Phone | Unavailable | + + + Support + + +---------+ + | Name | Relationship | Address | Phone | + + +---------+ + | Jay Jay & Teressa | ECON | Unknown | | | [place]ika | | | | + + +---------+ + Care Team Providers + +------+ + | Care Rehab Technician Name | Role | Phone | + +------+ + | Anny Ennis DO | PCP | Unavailable | + +------+ + Reason for Visit +--------+ + | Reason | Comments | +--------+ + | Other | Hep clinic appointment | +--------+ + Encounter Details +--------+ + + + + | Date | Type | Department | Care Team | Description | +--------+ + + + + | 01/23/ | Documentati | Clinical | Kennedi Doyle | Other (Hep clinic | | 2009 | on | Transplant Services | Kuldeep, RN [address] | appointment) | | | | [address] | [address] | | | | | [place], | [place], [place] | | | | | [place] [address] | [address] | | | | | [phone] | | | +--------+ + + + + Social History + +-------+ +--------+------+ | Tobacco Use | Types | Packs/Day | Years | Date | | | | | Used | | + +-------+ +--------+------+ | Never Assessed | | | | | + +-------+ +--------+------+ + + + | Sex Assigned at | Date Recorded | | | | + + + | Not on file | | + + + + + + + | Job Start Date | Occupation | Industry | + + + + | Not on file | Not on file | Not on file | + + + + + + + + | Travel History | Travel Start | Travel End | + + + + + + | No recent travel history available. | + + documented as of this encounter Plan of Treatment Not on filedocumented as of this encounter Visit Diagnoses Not on filedocumented in this encounter"
--- OUTSIDE RECORDS SUMMARY | ~2020-03-25 | XMS | Encounter Summary ---
Demographics + + + | Address | [address] | | | [place] [address] | + + + | Home Phone | | + + + | Preferred Language | Unknown | + + + | Marital Status | | + + + | Pentecostalism Affiliation | Unknown | + + + | Race | Unknown | + + + | Ethnic Group | Unknown | + + + Author + + + | Author | [facility] | | | and [place] | + + + | Organization | [facility] | | | and [place] | + + + | Address | Unknown | + + + | Phone | Unavailable | + + + Support + + +---------+ + | Name | Relationship | Address | Phone | + + +---------+ + | Teressa Fortune | ECON | Unknown | | + + +---------+ + | Jay Jay Fortune | ECON | Unknown | | + + +---------+ + | Teressa Edouardalberletitia | ECON | Unknown | | + + +---------+ + Care Team Providers + +------+ + | Care Truck Driver Instructor Name | Role | Phone | + +------+ + | Poornima Ny | PCP | | + +------+ + Reason for Referral Diagnostic/Screening (Routine) +--------+--------+ + + + + | Status | Reason | Specialty | Diagnoses / | Referred By | Referred To | | | | | Procedures | Contact | Contact | +--------+--------+ + + + + | Closed | | Radiology | Diagnoses | Sucharda, | [facility] | | | | | Closed | Faustino Robles, | [address] | | | | | compression | PA-C [address] | [place], | | | | | fracture of | [address] | [place] | | | | | L2 lumbar | [address] | [address] | | | | | vertebra, | [place], | Phone: | | | | | initial | [place] [address] | [phone] | | | | | encounter | Phone: | Fax: | | | | | (HCC) | [phone] | [phone] | | | | | Procedures | Fax: | | | | | | MRI Lumbar | [phone] | | | | | | Spine wo | | | | | | | Contrast | | | +--------+--------+ + + + + Reason for Visit Auth/Cert +--------+--------+ + + + + | Status | Reason | Specialty | Diagnoses / | Referred By | Referred To | | | | | Procedures | Contact | Contact | +--------+--------+ + + + + | | | | | | | +--------+--------+ + + + + Encounter Details +--------+ + + + + | Date | Type | Department | Care Team | Description | +--------+ + + + + | 11/30/ | Hospital | [facility] | Faustino Pfeiffer, | Closed compression | | 2019 | Encounter | [facility] | PA-C [address] | fracture of L2 | | | | [address] | [address] [place] | lumbar vertebra, | | | | [place], [place] | [place] [address] | initial encounter | | | | [address] | [phone] | (HCC) | | | | [phone] | | | | | | | Dave Plascencia MD [address] | | | | | [address] [facility] | | | | | | [place] [address] | | | | | | [phone] | | | | | | | | | | | | Marco Antonio Penn | | | | | | DO [address] | | | | | | [address] [place] | | | | | | [place] [address] | | | | | | [phone] | | | | | | | | +--------+ + + + + Social History + + + +--------+------+ | Tobacco Use | Types | Packs/Day | Years | Date | | | | | Used | | + + + +--------+------+ | Never Smoker | Cigarettes | | | | + + + +--------+------+ + +---+---+---+ | Smokeless Tobacco: | | | | | Never Used | | | | + +---+---+---+ + + +---------+ + | Alcohol Use | Drinks/Week | oz/Week | Comments | + + +---------+ + | No | | | | + + +---------+ + + + + | Sex Assigned at | Date Recorded | | | | + + + | Not on file | | + + + documented as of this encounter Last Filed Vital Signs + + + + + | Vital Sign | Reading | Time Taken | Comments | + + + + + | Blood Pressure | 119/71 | 12/01/2019 12:42 PM | | | | | PDT | | + + + + + | Pulse | 70 | 12/01/2019 12:42 PM | | | | | PDT | | + + + + + | Temperature | 36.3 C (97.3 F) | 12/01/2019 12:42 PM | | | | | PDT | | + + + + + | Respiratory Rate | 16 | 12/01/2019 12:42 PM | | | | | PDT | | + + + + + | Oxygen Saturation | 98% | 12/01/2019 12:42 PM | | | | | PDT | | + + + + + | Inhaled Oxygen | - | - | | | Concentration | | | | + + + + + | Weight | 111.1 kg (245 lb) | 12/01/2019 11:22 AM | | | | | PDT | | + + + + + | Height | 177.8 cm (5' 10") | 12/01/2019 11:22 AM | | | | | PDT | | + + + + + | Body Mass Index | 35.15 | 12/01/2019 11:22 AM | | | | | PDT | | + + + + + documented in this encounter Functional Status + + + + | Functional Status | Response | Date of Assessment | + + + + | Are you deaf or do you have serious | No | 08/09/2015 | | difficulty hearing? | | | + + + + | Are you blind or do you have serious | No | 08/09/2015 | | difficulty seeing, even when wearing | | | | glasses? | | | + + + + | Do you have serious difficulty walking or | No | 08/09/2015 | | climbing stairs? (5 years old or older) | | | + + + + | Do you have difficulty dressing or bathing? | No | 08/09/2015 | | (5 years old or older) | | | + + + + | Because of a physical, mental, or emotional | No | 08/09/2015 | | condition, do you have difficulty doing | | | | errands alone such as visiting a doctor's | | | | office or shopping? [15 years old or | | | | older)] | | | + + + + + + + + | Cognitive Status | Response | Date of Assessment | + + + + | Because of a physical, mental, or emotional | Yes | 08/09/2015 | | condition, do you have serious difficulty | | | | concentrating, remembering, or making | | | | decisions? (5 years old or older) | | | + + + + documented as of this encounter Medications at Time of Discharge + + + +---------+ + + | Medication | Sig | Dispensed | Refills | Start | End Date | | | | | | Date | | + + + +---------+ + + | acetaminophen | Take 650 mg by mouth | | 0 | | | | (TYLENOL) 325 mg | EVERY 4 TO 6 HOURS | | | | | | tablet | NEEDED for Pain. | | | | | + + + +---------+ + + | ibuprofen (ADVIL, | Take 400 mg by mouth | | 0 | | | | MOTRIN) 200 mg | every 8 hours as | | | | | | tablet | needed for Pain. | | | | | + + + +---------+ + + | | take 1 tablet by | | 0 | 10/02/19 | | | oxyCODONE-acetaminop | mouth every 6 hours | | | 20 | | | hen (PERCOCET) 5-325 | if needed for pain | | | | | | mg per tablet | | | | | | + + + +---------+ + + | traMADol (ULTRAM) | Take 50 mg by mouth | | 0 | 10/27/19 | | | 50 mg tablet | Daily. | | | 20 | | + + + +---------+ + + documented as of this encounter Plan of Treatment Not on filedocumented as of this encounter Procedures + +--------+ + + + | Procedure Name | Priori | Date/Time | Associated Diagnosis | Comments | | | ty | | | | + +--------+ + + + | MRI LUMBAR SPINE WO | Routin | 12/01/2019 | Closed compression | Results for this | | CONTRAST | e | 12:23 PM | fracture of L2 | procedure are in the | | | | PDT | lumbar vertebra, | results section. | | | | | initial encounter | | | | | | ([facility]) | | + +--------+ + + + documented in this encounter Results MRI Lumbar Spine wo Contrast (12/01/2019 12:23 PM PDT) + + | Specimen | + + | | + + + + + | Impressions | Performed At | + + + | Severe compression fracture of L2 with progression that leads to | [facility] | | mild central stenosis at L1-2. Multilevel degenerative changes | | | including moderate central stenosis at L2-3 and mild central stenoses | | | at other levels. Multilevel mild to moderate neural foraminal canal | | | stenoses are noted. Dictated and Signed by: Dave Plascencia MD | | | Electronically signed: 12/01/2019 2:03 PM | | + + + + + + | Narrative | Performed At | + + + | MRI LUMBAR SPINE WO CONTRAST 12/01/2019 12:04 PM HISTORY: | [facility] | | Compression fracture, lumbar Back pain or radiculopathy, > 6 wks | | | compression fracture with ongoing pain. COMPARISON: Lumbar spine | | | x-ray dated 06/20/2019. PROTOCOL: Sagittal T2, sagittal T1, axial | | | T2, axial T1, sagittal STIR, coronal T2. FINDINGS: A severe | | | compression fracture is seen of L2 that has progressed with | | | retropulsion. Mild spondylosis is observed. Disc height are | | | maintained. Multilevel disc desiccation is seen. Imaged spinal | | | cord and cauda equina demonstrate normal signal with no evidence for | | | myelomalacia or mass lesions. The conus medullaris terminates at level | | | L1-2, which is normal. 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 T12-L1: Mild central | | | stenosis is seen due to congenitally short pedicles with AP dimension | | | of the canal measuring 10 mm. There is mild right neural foraminal | | | canal stenosis due to foraminal spurring. L1-2: Retropulsion of | | | the L2 fracture is observed along with a 2 mm posterior disc bulge. | | | There is mild central stenosis with AP dimension of the canal | | | measuring 9 mm. No neural foraminal canal stenosis is seen. L2-3: | | | A 2 mm posterior disc bulge is present along with mild facet | | | hypertrophy and ligamentum flavum hypertrophy. There is moderate | | | central stenosis with AP dimension of the canal measuring 8 mm. Mild | | | bilateral neural foraminal canal stenoses are seen. L3-4: A 2 mm | | | posterior disc bulge is present along with mild facet hypertrophy and | | | ligamentum flavum hypertrophy. Small bilateral facet effusions are | | | noted. There is mild central stenosis with AP dimension of the canal | | | measuring 10 mm. Moderate right and mild left neural foraminal canal | | | stenoses are seen. L4-5: A 2 mm posterior disc bulge is present | | | along with tearing of the annulus and mild facet hypertrophy. There | | | is mild central stenosis with AP dimension of the canal measuring 10 | | | mm. Mild bilateral neural foraminal canal stenoses are seen. | | | L5-S1: A 2 mm posterior disc bulge is present along with mild facet | | | hypertrophy. There is mild central stenosis with AP dimension of the | | | canal measuring 10 mm. Moderate bilateral neural foraminal canal | | | stenoses are seen. A small cyst is in the upper pole of the right | | | kidney. | | + + + + + | Procedure Note | + + | Rosalio, Rad Results In - 12/01/2019 2:06 PM PDT MRI LUMBAR SPINE WO CONTRAST 12/01/2019 | | 12:04 PM HISTORY: Compression fracture, lumbarBack pain or radiculopathy, > 6 | | wkscompression fracture with ongoing pain.COMPARISON: Lumbar spine x-ray dated | | 06/20/2019.PROTOCOL: Sagittal T2, sagittal T1, axial T2, axial T1, sagittal STIR, | | coronalT2.FINDINGS:A severe compression fracture is seen of L2 that has progressed | | withretropulsion. Mild spondylosis is observed. Disc height are maintained. Multilevel | | disc desiccation is seen. Imaged spinal cord and cauda equina demonstrate normal signal | | with no evidencefor myelomalacia or mass lesions. The conus medullaris terminates at | | level L1-2,which is normal. Congenitally short pedicles are present that decrease the | | sizeof the central canal.T12-L1: Mild central stenosis is seen due to congenitally short | | pedicles with APdimension of the canal measuring 10 mm. There is mild right neural | | foraminalcanal stenosis due to foraminal spurring.L1-2: Retropulsion of the L2 fracture | | is observed along with a 2 mm posteriordisc bulge. There is mild central stenosis with | | AP dimension of the canalmeasuring 9 mm. No neural foraminal canal stenosis is | | seen.L2-3: A 2 mm posterior disc bulge is present along with mild facet hypertrophyand | | ligamentum flavum hypertrophy. There is moderate central stenosis with APdimension of | | the canal measuring 8 mm. Mild bilateral neural foraminal canalstenoses are seen.L3-4: A | | 2 mm posterior disc bulge is present along with mild facet hypertrophyand ligamentum | | flavum hypertrophy. Small bilateral facet effusions are noted.There is mild central | | stenosis with AP dimension of the canal measuring 10 mm.Moderate right and mild left | | neural foraminal canal stenoses are seen. L4-5: A 2 mm posterior disc bulge is present | | along with tearing of the annulusand mild facet hypertrophy. There is mild central | | stenosis with AP dimension ofthe canal measuring 10 mm. Mild bilateral neural foraminal | | canal stenoses areseen. L5-S1: A 2 mm posterior disc bulge is present along with mild | | facet hypertrophy.There is mild central stenosis with AP dimension of the canal | | measuring 10 mm.Moderate bilateral neural foraminal canal stenoses are seen.A small cyst | | is in the upper pole of the right kidney.IMPRESSION: Severe compression fracture of L2 | | with progression that leads to mild centralstenosis at L1-2.Multilevel degenerative | | changes including moderate central stenosis at L2-3 andmild central stenoses at other | | levels. Multilevel mild to moderate neuralforaminal canal stenoses are noted.Dictated | | and Signed by: Dave Plascencia MD Electronically signed: 12/01/2019 2:03 PM | |and ligamentum flavum hypertrophy. There is moderate central stenosis with AP | |dimension of the canal measuring 8 mm. Mild bilateral neural foraminal canal | |stenoses are seen. | | | |L3-4: A 2 mm posterior disc bulge is present along with mild facet hypertrophy | |and ligamentum flavum hypertrophy. Small bilateral facet effusions are noted. | |There is mild central stenosis with AP dimension of the canal measuring 10 mm. | |Moderate right and mild left neural foraminal canal stenoses are seen. | | | |L4-5: A 2 mm posterior disc bulge is present along with tearing of the annulus | |and mild facet hypertrophy. There is mild central stenosis with AP dimension of | |the canal measuring 10 mm. Mild bilateral neural foraminal canal stenoses are | |seen. | | | |L5-S1: A 2 mm posterior disc bulge is present along with mild facet hypertrophy. | |There is mild central stenosis with AP dimension of the canal measuring 10 mm. | |Moderate bilateral neural foraminal canal stenoses are seen. | | | |A small cyst is in the upper pole of the right kidney. | | | |IMPRESSION: | |Severe compression fracture of L2 with progression that leads to mild central | |stenosis at L1-2. | | | |Multilevel degenerative changes including moderate central stenosis at L2-3 and | |mild central stenoses at other levels. Multilevel mild to moderate neural | |foraminal canal stenoses are noted. | | | |Dictated and Signed by: Dave Plascencia MD | | Electronically signed: 12/01/2019 2:03 PM | + + + +---------+ + + | Performing | Address | City/State/Zipcode | Phone Number | | Organization | | | | + +---------+ + + | [facility] | | | | + +---------+ + + documented in this encounter Visit Diagnoses + + | Diagnosis | + + | Closed compression fracture of L2 lumbar vertebra, initial encounter (HCC) | + + documented in this encounter Administered Medications + +--------+---------+------+------+------+ | Medication Order | MAR | Action | Dose | Rate | Site | | | Action | Date | | | | + +--------+---------+------+------+------+ + +---+ | albuterol 2.5 mg/3 mL nebulizer | | | solution 2.5 mg 2.5 mg, | | | Nebulization, ONCE PRN, Wheezing, | | | Starting 12/01/19 at 1308, | | | For 1 dose, Notify anesthesia if | | | patient is wheezing and does not | | | have a history of asthma or COPD | | | or current smoking., | | | Recovery/Phase I | | + +---+ | | | + +---+ | albuterol-ipratropium 2.5-0.5 | | | mg/3 mL nebulizer solution 3 mL | | | 3 mL, Nebulization, ONCE PRN, | | | Wheezing, Starting Wed12/01/19 at | | | 1128, For 1 dose, Pre-op | | + +---+ | | | + +---+ | dextrose 50% injection 12.5-25 | | | g 12.5-25 g, Intravenous, EVERY | | | 15 MIN PRN, Low Blood Sugar, Give | | | 12.5g (25 mL) IV if blood | | | glucose 50-69 mg/dL. Give 25g | | | (50 mL) IV if blood glucose < 50, | | | Starting Wed12/01/19 at 1128, | | | Repeat in 15 min if blood glucose | | | remains < 70 mg/dL. Repeat | | | blood glucose in 30 min once | | | blood glucose > 70., Pre-op | | + +---+ | | | + +---+ | dextrose 50% injection 12.5-25 | | | g 12.5-25 g, Intravenous, EVERY | | | 15 MIN PRN, Low Blood Sugar, For | | | hypoglycemia. Give 12.5g (25ml) | | | IV if blood glucose 50-69 | | | mg/dL. Give 25g (50ml) IV if | | | blood glucose < 50, Starting Fri | | | 12/01/19 at 1308, Give over 2 min. | | | Repeat in 15 min if blood | | | glucose remains < 70 mg/dL. | | | Repeat blood glucose in 30 min | | | once blood glucose > 70., | | | Recovery/Phase I | | + +---+ | | | + +---+ + +---------+ +---+---+---+ | lactated ringers (LR) infusion | New Bag | 12/01/19 | | | | | at 10-100 mL/hr, Intravenous, | | 20 11:30 | | | | | CONTINUOUS, Starting 12/01/19 | | AM PDT | | | | | at 1145, TKO., Pre-op | | | | | | + +---------+ +---+---+---+ + +---+ | | | + +---+ | ondansetron (ZOFRAN) injection | | | 4 mg 4 mg, Intravenous, EVERY 4 | | | HOURS PRN, Nausea, Vomiting, | | | Starting 12/01/19 at 1308, | | | Recovery/Phase I | | + +---+ | | | + +---+ documented in this encounter
--- OUTSIDE RECORDS SUMMARY | ~2020-03-25 | XMS | Encounter Summary ---
Demographics + + + | Address | [address] | | | [place] [address] | + + + | Home Phone | | + + + | Preferred Language | Unknown | + + + | Marital Status | Single | + + + | Gnosticism Affiliation | Unknown | + + + | Race | White | + + + | Ethnic Group | Not or | + + + Author + + + | Author | [facility] | + + + | Organization | [facility] | + + + | Address | [...] Team Providers + +------+ + | Care Home Appliances Mechanic Name | Role | Phone | + [...] | 2009 | on | Center at [facility] [address] | ([place] 05/30/2010 no | | | | [address] | [address] [place], [place] | HCC) | | | | Mailcode: [facility] | [address] | | | | | [facility] | [phone] | | | | | and Healing, | | | | | | [address] | | | | | | [place], [place] | | | | | | [address] | | | | | | [phone] | | | +--------+ + + + [...]
--- OUTSIDE RECORDS SUMMARY | ~2020-03-25 | XMS | Encounter Summary ---
Demographics + + + | Address | [address] | | | [place] [address] | + + + | Home Phone | | + + + | Preferred Language | Unknown | + + + | Marital Status | Single | + + + | Restorationist Affiliation | Unknown | + + + | Race | White | + + + | Ethnic Group | Not or | + + + Author + + + | Author | [facility] | + + + | Organization | [facility] | + + + | Address | [...] Team Providers + +------+ + | Care Guest Room Inspector Name | Role | Phone | + +------+ + | Anny Ennis DO | PCP | Unavailable | + +------+ + Reason for Visit + + + | Reason | Comments | + + + | Liver Transplant | does not meet criteria | | Referral | | + + + Encounter Details +--------+ + + + + | Date | Type | Department | Care Team | Description | +--------+ + + + + | 12/17/ | Documentati | Clinical | Kennedi Doyle | Liver Transplant | | 2009 | on | Transplant Services | Kuldeep RN [address] | Referral (does not | | | | [address] | [address] | meet criteria) | | | | [place], | [place], [place] | | | | | [place] [address] | [address] | | | | | [phone] | | | +--------+ + + + [...]
--- OUTSIDE RECORDS SUMMARY | ~2020-03-25 | XMS | Encounter Summary ---
Demographics + + + | Address | [address] | | | [place] [address] | + + + | Home Phone [...] + + + | Author | [facility] | + + + | Organization | [facility] | + + + | [...] Team Providers + +------+ + | Care Mixing Place Supervisor Name | Role | Phone | + +------+ + PCP | Unavailable | + +------+ + Reason for Visit +--------+ + | Reason | Comments | +--------+ + | Other | liver failure | +--------+ + Encounter Details +--------+ + + + + | Date | Type | Department | Care Team | Description | +--------+ + + + + | 09/23/ | Emergency | [facility] Emergency | | | | 2009 | | Department [address] | | | | | [address] | | | | | | [facility] | | | | | | [place], [place] | | | | | | [address] | | | | | | [phone] | | | +--------+ + + + [...]
--- OUTSIDE RECORDS SUMMARY | ~2020-03-25 | XMS | Clinical Summary ---
Demographics + + + | Address | [address] | | | [place] [address] | + + + | Home Phone | | + + + | Preferred Language | Unknown | + + + | Marital Status | Single | + + + | Druze Affiliation | Unknown | + + + [...] | ECON | Unknown | | | [place] | | | | + + +---------+ + Care Team Providers + +------+ + | Care In Processing Instructor Name | Role | Phone | + +------+ + PCP | Unavailable | + +------+ + Source Comments BATSHEVA is fully live on both [facility] and [facility] Allergies + + + + + + | Active Allergy | Reactions | Severity | Noted | Comments | | | | | Date | | + + + + + + | Penicillins | Wheez/Dyspnea, | High | 03/13/20 | | | | Pruritus, Rash | | 10 | | + + + + + + Medications Not on file Active Problems + + + | Problem | Noted Date | + + + | Cirrhosis | 03/13/2010 | + + + | Esophageal varices | 03/13/2010 | + + + Family [...] recent travel history available. | + + Last Filed Vital Signs + + + + + | Vital Sign | Reading | Time Taken | Comments | + + + + + | Blood Pressure | 104/65 | 03/13/2010 8:35 AM | | | | | PDT | | + + + + + | Pulse | 97 | 03/13/2010 8:35 AM | | | | | PDT | | + + + + + | Temperature | 36.6 C (97.8 F) | 03/13/2010 8:35 AM | | | | | PDT | | + + + + + | Respiratory Rate | 16 | 03/13/2010 8:35 AM | | | | | PDT | | + + + + + | Oxygen Saturation | - | - | | + + + + + | Inhaled Oxygen | - | - | | | Concentration | | | | + + + + + | Weight | 120.2 kg (265 lb) | 03/13/2010 8:35 AM | | | | | PDT | | + + + + + | Height | 176.5 cm (5' 9.5") | 03/13/2010 8:35 AM | | | | | PDT | | + + + + + | Body Mass Index | 38.57 | 03/13/2010 8:35 AM | | | | | PDT | | + + + + + Plan of Treatment + + + + + | Health Maintenance | Due Date | Last Done | Comments | + + + + + | Pneumococcal | | | | | vaccination (1 of 1 | 6 | | | | - PPSV23) | | | | + + + + + | Influenza (Flu) | | | | | vaccination (#1) | 9 | | | + + + + + Results Not on filefrom Last 3 Months Insurance + +--------+ +--------+-------+---------+--------+ | Payer | Benefi | Subscriber | Effect | Phone | Address | Type | | | t Plan | ID | ld | | | | | | / | | Dates | | | | | | Group | | | | | | + +--------+ +--------+-------+---------+--------+ | [facility] | | [phone] | Effect | | | Agency | | SERVICE | | | ld | | | | | | HEALTH | | for | | | | | | | | all | | | | | | SERVIC | | dates | | | | | | E | | | | | | + +--------+ +--------+-------+---------+--------+ + +--------+ +--------+ + + | Guarantor Name | Accoun | Relation to | Date | Phone | Billing Address | | | t Type | Patient | of | | | | | | | | | | + +--------+ +--------+ + + | Astrid Sánchez | Person | Self [birth year] | [address] | | [place] | [place] | | 1961 | [phone] | [place] [address] | | | ryan | | | 0 (Home) | | + +--------+ +--------+ + + | Astrid Sánchez | Agency | Self [birth year] | [address] | | [address] | | | 1961 | [phone] | [place] [address] | | | | | | 0 (Home) | | + +--------+ +--------+ + +
--- OUTSIDE RECORDS SUMMARY | ~2020-03-25 | XMS | Encounter Summary ---
Demographics + + + | Address | [address] | | | [place] [address] | + + + | Home Phone | | + + + | Preferred Language | Unknown | + + + | Marital Status | | + + + | Uatsdin Affiliation | Unknown | + + + | Race | Unknown | + + + | Ethnic Group | Unknown | + + + Author + + + | Author | [facility] | | | and [place] | + + + | Organization | [facility] | | | [...] Team Providers + +------+ + | Care Printed Circuit Photographer Name | Role | Phone | + +------+ + PCP | Unavailable | + +------+ + Encounter Details +--------+ + + + + | Date | Type | Department | Care Team | Description | +--------+ + + + + | 11/12/ | Hospital | [facility] | Rodo Draper, | | | 2008 - | Encounter | MED CTR ICU [address] | [address] [facility] | | | | | [place], | [place], [place] | | | 11/17/ | | [place] [address] | [address] | | | 2008 | | [phone] | [phone] | | | | | | | [...]
--- OUTSIDE RECORDS SUMMARY | ~2020-03-25 | XMS | Encounter Summary ---
Demographics + + + | Address | [address] | | | [place] [address] | + + + | Home Phone | | + + + | Preferred Language | Unknown | + + + | Marital Status | | + + + | Pentecostal Affiliation | Unknown | + + + | Race | Unknown | + + + | Ethnic Group | Unknown | + + + Author + + + | Author | [facility] | | | and Olegarioana | + + + | Organization | [facility] | | | [...] Jay Fortune | ECON | Unknown | + | + + +---------+ + | Teressa Edouardalberclinton | ECON | Unknown | + | + + +---------+ + Care Team Providers + +------+ + | Care Construction Producer Name | Role | Phone | + +------+ + PCP | Unavailable | + +------+ + Encounter Details +--------+ + + + + | Date | Type | Department | Care Team | Description | +--------+ + + + + | 10/11/ | Hospital | [facility] | Delgado, | Alcohol abuse; | | 2015 - | Encounter | [facility] [address] | Anila HENRIQUEZ MD | Comatose (HCC); | | | | [address] | [address] | Frequent falls; | | 10/29/ | | [place], [place] | [address], [place] | Seizure ([facility]); | | 2014 | | [id number] | [phone] | Alcohol withdrawal | | | | [phone] | | (HCC); Cerebral | | | | | | edema ([facility]); | | | | | | Subdural hematoma, | | | | | | post-traumatic, | | | | | | sequela ([facility]); | | | | | | Traumatic brain | | | | | | injury, closed, | | | | | | sequela ([facility]) | +--------+ + + + + Social [...] documented as of this encounter Discharge Summaries Cecilio Bravo MD - 11/12/2014 11:24 AM PST Discharge Summaries by Cecilio Bravo MD at 11/12/14 1124 Author: Cecilio Bravo MD Service: Hospitalist Author Type: Physician Filed: 11/12/14 1127 Date of Service: 11/12/141123 Status: Signed Highway Maintenance Supervisor: Cecilio Bravo MD (Physician) [facility] Service: Hospitalist Discharge Summary Date of Admission: 10/11/2014 Date of Discharge: 10/29/2014 Discharge Provider: Cecilio Bravo MD Treatment Team: Consulting Physician: Wing Lewis Argueta MD Admitting Provider: Anila Delgado MD Discharge Diagnoses: Principal Problem: Traumatic brain injury, closed Active Problems: Alcohol abuse Subdural hematoma, post-traumatic Alcohol withdrawal Debility, unspecified Difficulty in walking Hyposmolality and/or hyponatremia Resolved Problems: Comatose Procedures: Procedure(s): CRANIOTOMY - FOR BLEED CRANIECTOMY BRIEF HISTORY OF PRESENTATION: Tony Fortune is a 53 y.o. male who Per ICU note: The patient is a 53 y.o. male with significant past medical history of chronic alcohol abus e and multiple falls. Per ED report from [facility]: he was drinking earlier today at home and fell twice. He went to bed and then he was noted to be having what they thought was seizure activity and th ey could not wake him and called EMS. He was taken to the ED at [facility] in [place] a nd then transferred to the ED here for emergent neurosurgical evaluation for large acute rig ht SDH with 2 cm midline shift. He was admitted to the ICU post-op craniectomy and yosef drains x2. by Dr. Delgado still intu bated and comatose off sedation with intermittent decerebrate posturing but has cough and co rneal reflexes. ICU Time Line: 10/11/2014: Decompressive Craniectomy on right for SDH GCS 4 10/12/2014: Patients neurologic examination continues to improve woke up and was able to fol low commands by wiggling the tip of his right thumb and left foot. 10/13/2014: Patients neurologic exam continues to improve. Had an episode of flash pulmonary edema with HTN and tachycardia. Diuresed. 10/14/2014: Extubated. 10/15/2014: Swallow eval and PT to advance today. Kye ordered for protection of craniecto my-orthotics consult 10/16/2014: CT unchanged right temporal hygroma, MLS 6 mm. per previous note: Patient Summary: Patient is a 53 year old male with past medical history of Chronic Alcohol Abuse, Dependenc e and multiple falls who was transferred from [facility] due to a fall, seizures . CT scan of the head there showed a large acute right SDH with 2 cm midline shift. Neurosur jarad services was involved and dr. Delgado performed Craniectomy and post procedure he was kept in ICU for close monitoring. Repeat CT scan showed Right-sided craniectomy involving of the entire right frontal parietal skull and right-sided cerebral edema was present with bra in extending outside of its typical cavity which was unchanged from previous study. PT also followed and Dr. Argueta consulted who initially thought he would be a good candidate to IPR bu t due to his weakness and persistent fatigue symptoms recommended SNF placement to improve s trength and mobility. natural resources professor are working on finding placement which may take few days, however if accepted then can be discharged for rehabilitation Events Overnight: 10/22 pt still somewhat confused, thought he was in [place]. He knew that he fell, but didn 't realize that he had hematoma and evacuation. 10/23; pt is doing well, but with some frustration today. Sitter at bedside. Still pending pl acement. 10/24 no change from yesterday. No nausea or vomiting. Appears to be rested, but not much act ivities during the day. 10/25 no falls or incidents thus far since transfer from ICU. Pending bed placement. Narciso sweeney is considering pt at this time. 10/26 denies any or vomiting. Denies any dizziness. Patient is complaining of headaches. Nurs ing is aware of this. Patient is sitting in chair with helmet on. 10/27 pt denies any nausea or vomiting. He is complaining of headaches. 10/28 pt denies any headache today. No nausea or vomiting, no impulsiveness, and not climbing out of bed or chair on his own. 10/29 pt denies any discomfort, denies any headache, which he sometimes complained of in the morning. HOSPITAL COURSE: Principal Problem: Subdural hematoma, with 2cm midline shift;; post-traumatic; Traumatic brain injury, closed 10/11; s/p subdural craniotomy and evacuation by dr. Delgado. 10/14 extubated. 10/15 craniotomy drains removed. 10/16; transferred out of ICU. 10/22 dr. argueta consulted but deemed not a inpt rehab candidate. Still waiting for placement. Cont with physical therapy. Per CM note today : CM attempted to meet pt for d/c planning. CM could not arouse pt for di scussion. CM routed updated medical notes to [facility] and [place]. PT recommending SNF. C M spoke w/ Tyler at [facility] and Mary Beth at [place], efaxed updated medical information, bot h are looking into the pt's case. RN reports pt has not had sitter and no behavioral problem s. 2: Patient continues to do well. However he is a little bit more agitated today. Wanting to get out of bed. Sitter at bedside today. He is mentation however continues to be labile. 10/24 cont to have sitter, but pt interactive appropriate. Short term memory is very poor. 10/25 cont to have sitter, pt hasn't shown any impulsiveness today. Memory cont to be poor. N o appropriate interactions at this time. 10/26 there are no beds at this time; planned for placement in [place] once patient is off sitter for 48 hrs. Otherwise patient continues to interact appropriately at this time and no impulsiveness is shown. Patient is mostly in chair or in bed and sleeping. 10/27 pt is alert today, no complications. Continue with PT. Pt without sitter. Pending place ment still. 10/28 planning re-evaluation of patient's status for admission to [place]. Pt otherwise is not impulsive, mostly calm and resting in chair or in bed. Pt is fall risk, but hasn't been trying to get out of bed. On his one. 10/29 pt is stable. Pleasant today. There's no nausea or vomiting. No fever or chills. Memory is still impaired, and activities of daily living still need to be assisted. Placement is found for pt today, and he can be discharged with continuing rehab. Pt has no problem with etoh detoxification. Pt has been without symptoms of withdrawal since transferr ed out of the ICU. Pt would benefit from a metal scalp plate as a consideration for his righ t frontal indentation. Active Problems: Alcohol abuse 2/2 no signs of DTs. Cont to monitor. / no signs of withdrawal symptoms. Alcohol withdrawal; resolved. Debility, unspecified; cont with therapy. Hyposmolality and/or hyponatremia; mild and stable. HTN: BP relatively controlled. 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 Hospital records reviewed. Labs and radiologic studies and reports reviewed. Discussed find ings with participating physicians. Old records reviewed on EMR. Condition guarded and high risk for cardiopulmonary decompensation due to underlying condit ions Past Medical History Diagnosis Date Alcohol abuse Frequent falls Drug abuse Past Surgical History Procedure Laterality Date No past surgeries Craniotomy Right 10/11/2014 Procedure: CRANIOTOMY - FOR BLEED; Surgeon: Anila Delgado MD; Location: [facility] IN OR; Service: Neurosurgery; Laterality: Right; Craniectomy Right 10/11/2014 Procedure: CRANIECTOMY; Surgeon: Anila Delgado MD; Location: [facility] OR; Ser vice: Neurosurgery; Laterality: Right; Allergies Allergen Reactions Penicillins Other (See Comments) Unknown No prescriptions prior to admission DISCHARGE EXAM Vital Signs: BP 118/81 | Pulse 75 | Temp(Src) 97.8 F (36.6 C) (Oral) | Resp 18 | Ht 1.778 m (5' 10") | Wt 83.7 kg (184 lb 8.4 oz) | BMI 26.48 kg/m2 | SpO2 98% General Appearance: No apparent distress. Conversive and appropriate to place and person. HEENT: not Normocephalic, traumatic; right frontal indentation of head; midline cranial inc ision with diamond, incision clean, dry, and intact. Indentation of right parietal/frontal h ead is noted. pupils EOMI, PERRLA. Nose: no septal deviation or discharge. Ears: normal siz e, location, and contour. Throat dry and without exudates. NECK: is supple, full ROM, nontender. LUNGS: clear to auscultation bilaterally with no wheezing, No rales or rhonchi audible. HEART: S1S2, Regular rate and rhythm without murmurs, gallops or rubs. ABDOMEN: Bowel sound is normoactive, abdomen is soft, non-tender non-distended ,no mass pal pable. EXTREMITIES:No lower extermity edema, No clubbing or cyanosis bilaterally. Good hand grasp bilaterally, and adequate fine motor functions. NEURO: Cranial Nerves 2-12 appears intact, Gait not tested, Muscle strength good bilaterall y, Sensation grossly intact. PSYCH: Alert, awake and Oriented to self only. SKIN: No bruises, rashes, lesions, or ulcers. DATA No results for input(s): WBC, RBC, HGB, HCT, MCV, MCH, MCHC, RDW, PLT, MPV, NEUTOPHILPCT, MONOPCT in the last 168 hours. Invalid input(s): EOSPCT No results for input(s): NA, K, CL, CO2, ANIONGAP, GLUF, BUN, CREATININE, BCR, CA, ALB, ANDERSON B, PROT, BILITOT, ALT, AST, EGFR, PHOS, MG, AMYLASE, LIPASE, BNP in the last 168 hours. Invalid input(s): ALGLR No results for input(s): HGBA1C, LABGLYC in the last 168 hours. No results for input(s): APTT, INR, PTT in the last 168 hours. No results for input(s): TSH, T3FREE, FREET4 in the last 168 hours. No results for input(s): CKTOTAL, TROPONINI, TROPONINT, CKMBINDEX in the last 168 hours. No results found for this basename: HDL, TRIGSCR, LDLCALC, CHOL, CHOLHDL, VLDL, NONHDLCHOLV L No results found. PLAN Discharge to home in stable condition. Code Status: Prior No discharge procedures on file. Follow up: Anila Delgado MD [address] [place] [address] Call right away to schedule an appointment for the end of October. Dr. Delgado will decid e at that visit about when to replace your bone flap. Per Pt None Medication List START taking these medications levetiracetam 1000 MG tablet QTY: 60 tablet Refills: 0 Commonly known as: KEPPRA Take 1 tablet by mouth 2 (two) times daily. QUEtiapine 25 MG tablet QTY: 30 tablet Refills: 0 Commonly known as: SEROquel Take 1 tablet by mouth nightly. thiamine 100 MG tablet QTY: 30 tablet Refills: 0 Commonly known as: VITAMIN B-1 Take 1 tablet by mouth daily. Where to Get Your Medications These are the prescriptions that you need to picker operator. You may get the following medications from any pharmacy - levetiracetam 1000 MG tablet - QUEtiapine 25 MG tablet - thiamine 100 MG tablet Discharge took 37 minutes, to include final examination, discussion of admission, and prepa ration of prescriptions, instructions for on-going care, follow-up and documentation of disc harge summary. Cecilio Bravo MD @td Cecilio Montaño MD - 10/29/2014 11:23 AM PSTFormatting of this note might be different from the o riginal. Discharge Summaries by Cecilio Bravo MD at 10/29/141122 Author: Cecilio Bravo MD Service: Hospitalist Author Type: Physician Filed: 10/29/141122 Date of Service: 10/29/141122 Status: Signed Highway Maintenance Supervisor: Cecilio Bravo MD (Physician) [facility] Service: Hospitalist Progress Note Hospital Day: LOS: 18 days Post-Op Day: 11 Days Post-Op SUBJECTIVE Patient Summary: Per ICU note: The patient is a 53 y.o. male with significant past medical history of chronic alcohol abus e and multiple falls. Per ED report from [facility]: he was drinking earlier today at home and fell twice. He went to bed and then he was noted to be having what they thought was seizure activity and th ey could not wake him and called EMS. He was taken to the ED at [facility] in [place] a nd then transferred to the ED here for emergent neurosurgical evaluation for large acute rig ht SDH with 2 cm midline shift. He was admitted to the ICU post-op craniectomy and yosef drains x2. by Dr. Delgado still intu bated and comatose off sedation with intermittent decerebrate posturing but has cough and co rneal reflexes. ICU Time Line: 10/11/2014: Decompressive Craniectomy on right for SDH GCS 4 10/12/2014: Patients neurologic examination continues to improve woke up and was able to fol low commands by wiggling the tip of his right thumb and left foot. 10/13/2014: Patients neurologic exam continues to improve. Had an episode of flash pulmonary edema with HTN and tachycardia. Diuresed. 10/14/2014: Extubated. 10/15/2014: Swallow eval and PT to advance today. Kye ordered for protection of craniecto my-orthotics consult 10/16/2014: CT unchanged right temporal hygroma, MLS 6 mm. per previous note: Patient Summary: Patient is a 53 year old male with past medical history of Chronic Alcohol Abuse, Dependenc e and multiple falls who was transferred from [facility] due to a fall, seizures . CT scan of the head there showed a large acute right SDH with 2 cm midline shift. Neurosur jarad services was involved and dr. Delgado performed Craniectomy and post procedure he was kept in ICU for close monitoring. Repeat CT scan showed Right-sided craniectomy involving of the entire right frontal parietal skull and right-sided cerebral edema was present with bra in extending outside of its typical cavity which was unchanged from previous study. PT also followed and Dr. Argueta consulted who initially thought he would be a good candidate to IPR bu t due to his weakness and persistent fatigue symptoms recommended SNF placement to improve s trength and mobility. natural resources professor are working on finding placement which may take few days, however if accepted then can be discharged for rehabilitation Events Overnight: 10/22 pt still somewhat confused, thought he was in [place]. He knew that he fell, but didn 't realize that he had hematoma and evacuation. 10/23; pt is doing well, but with some frustration today. Sitter at bedside. Still pending pl acement. 10/24 no change from yesterday. No nausea or vomiting. Appears to be rested, but not much act ivities during the day. 10/25 no falls or incidents thus far since transfer from ICU. Pending bed placement. Narciso sweeney is considering pt at this time. 10/26 denies any or vomiting. Denies any dizziness. Patient is complaining of headaches. Preeti mtz is aware of this. Patient is sitting in chair with helmet on. 10/27 pt denies any nausea or vomiting. He is complaining of headaches. 10/28 pt denies any headache today. No nausea or vomiting, no impulsiveness, and not climbing out of bed or chair on his own. 10/29 pt denies any discomfort, denies any headache, which he sometimes complained of in the morning. ROS: 12 point ROS reviewed and negative other than above. Scheduled Medications folic acid 1 mg Oral Daily heparin (porcine) 5000 unit/0.5mL 5,000 Units Subcutaneous 3 times per day levETIRAcetam 1,000 mg Oral BID QUEtiapine 25 mg Oral Nightly thiamine 100 mg Oral Daily Continuous Infusions PRN Medications hydrALAZINE, labetalol, morphine OR morphine OR [DISCONTINUED] morphine, oxyCODONE- acetaminophen OR oxyCODONE-acetaminophen OBJECTIVE Vital Signs: BP 118/79 | Pulse 92 | Temp(Src) 98.2 F (36.8 C) (Oral) | Resp 18 | Ht 1.778 m (5' 10") | Wt 83.7 kg (184 lb 8.4 oz) | BMI 26.48 kg/m2 | SpO2 98% Physical Exam: General Appearance: No apparent distress. Conversive and appropriate to place and person. HEENT: not Normocephalic, traumatic; right frontal indentation of head; midline cranial inc ision with diamond, incision clean, dry, and intact. Indentation of right parietal/frontal h ead is noted. pupils EOMI, PERRLA. Nose: no septal deviation or discharge. Ears: normal siz e, location, and contour. Throat dry and without exudates. NECK: is supple, full ROM, nontender. LUNGS: clear to auscultation bilaterally with no wheezing, No rales or rhonchi audible. HEART: S1S2, Regular rate and rhythm without murmurs, gallops or rubs. ABDOMEN: Bowel sound is normoactive, abdomen is soft, non-tender non-distended ,no mass pal pable. EXTREMITIES:No lower extermity edema, No clubbing or cyanosis bilaterally. Good hand grasp bilaterally, and adequate fine motor functions. NEURO: Cranial Nerves 2-12 appears intact, Gait not tested, Muscle strength good bilaterall y, Sensation grossly intact. PSYCH: Alert, awake and Oriented to self only. SKIN: No bruises, rashes, lesions, or ulcers. DATA No results for input(s): WBC, RBC, HCT, MCV, MCH, MCHC, RDW, PLT, MPV, DIFFTYPE in the last 168 hours. Invalid input(s): HGB;3 Recent Labs Lab 10/25/14 0406 10/24/14 1412 K 3.8 3.6 CL 101 101 CO2 28 29 ANIONGAP 9 8 GLUF 119* 118* BUN 8 7* CREATININE 0.54* 0.57* BCR 15 12 CA 9.4 9.5 PROT -- 7.7 ALB -- 3.5* GLOB -- 4.2 BILITOT -- 0.6 ALP -- 225* AST -- 52* ALT -- 46 EGFR >60 >60 BMP: Recent Labs Lab 10/25/14 0406 10/24/14 1412 NA 134* 134* K 3.8 3.6 CL 101 101 CO2 28 29 ANIONGAP 9 8 GLUF 119* 118* BUN 8 7* CREATININE 0.54* 0.57* BCR 15 12 CA 9.4 9.5 EGFR >60 >60 No results for input(s): MG in the last 168 hours. No results for input(s): APTT, INR, PTT in the last 168 hours. No results for input(s): CKTOTAL, TROPONINI, TROPONINT, CKMBINDEX in the last [address] Head Without Contrast 10/17/2014 EXAM: CT HEAD EXAM DATE: 10/17/2014 06:10 AM. CLINICAL HISTORY: Head injury. COMPARISON: 10/16/2014. TECHNIQUE: Multiaxial CT images were obtained from the foramen mag num to the vertex. IV contrast: None. Reformats: Coronal. FINDINGS: Again demonstrated is a right-sided craniectomy involving of the entire right frontal parietal skull . There is ext ra-axial hyper and hypoechoic fluid on the right . Right-sided cerebral edema is present wit h brain extending outside of its typical cavity . There is some loss of ugarte-white different iation in the right posterior inferior parietal region similar to the prior examination. A s mall amount of hemorrhage in the right posterior fossa could be subarachnoid or intraparench ymal. Leftward midline shift is 7 mm compared to 7 mm on the prior examination. Air and hemo rrhage is seen in the right scalp at the surgical site. There is also some low-density fluid outside of the brain cavity that may be CSF. The thickness is similar to the prior examinat ion at 1 cm. Mild subcutaneous emphysema in the right scalp has mildly decreased. Surgical s kin diamond are present. Mass effect is seen on the right lateral ventricle. The basal ciste rns are patent. 10/17/[address] compared to 10/16/2014. [facility] Electronically signed by Jakob Calzada MD on Oct 17 2014 7:38AM Referring Provider Line: [phone] ID: [id number] Ct Head Without Contrast 10/16/[address] without contrast. INDICATION: Decompressive craniectomy for head traum a Technique: head CT without contrast. COMPARISON: 10/14/2014 FINDINGS: Large decompressi ve craniectomy overlies the frontal, parietal and temporal lobes. The surgical drain overlyi ng the craniectomy site has been removed. There is a hypodense subpleural collection overlyi ng the right frontal convexity now measuring a to 11 mm in thickness, previously on the orde r of 6 mm. There is midline shift to the left by 6 mm, not changed significantly when remeas ured. Stable small, mixed density subdural collection over the right tentorium. Basal cister ns remain visible. No hydrocephalus. 10/16/2014 Right-sided drain has been removed. No evidence of interval hemorrhage or wors ening mass effect. Hypodense subdural collection over the right frontal convexity has increa sed in size. Serial followup suggested. No other significant interval change. Electronical ly signed by Jimbo Mckeon MD on Oct 16 2014 6:08AM Referring Provider Line: [phone] E ID: [id number] PROBLEM LIST ASSESSMENT & PLAN Principal Problem: Subdural hematoma, with 2cm midline shift;; post-traumatic; Traumatic brain injury, close d 10/11; s/p subdural craniotomy and evacuation by dr. Delgado. 10/14 extubated. 10/15 craniotomy drains removed. 10/16; transferred out of ICU. 10/22 dr. argeuta consulted but deemed not a inpt rehab candidate. Still waiting for placement. Cont with physical therapy. Per CM note today : CM attempted to meet pt for d/c planning. CM could not arouse pt for d iscussion. CM routed updated medical notes to [facility] and [place]. PT recommending SNF. CM spoke w/ Tyler at [facility] and Mary Beth at [place], efaxed updated medical information, grace th are looking into the pt's case. RN reports pt has not had sitter and no behavioral proble ms. 2/: Patient continues to do well. However he is a little bit more agitated today. Wanti ng to get out of bed. Sitter at bedside today. He is mentation however continues to be lab ile. 2 cont to have sitter, but pt interactive appropriate. Short term memory is very poor. 10/25 cont to have sitter, pt hasn't shown any impulsiveness today. Memory cont to be poor. No appropriate interactions at this time. 10/26 there are no beds at this time; planned for placement in [place] once patient is off sitter for 48 hrs. Otherwise patient continues to interact appropriately at this time and no impulsiveness is shown. Patient is mostly in chair or in bed and sleeping. 10/27 pt is alert today, no complications. Continue with PT. Pt without sitter. Pending plac ement still. 10/28 planning re-evaluation of patient's status for admission to [place]. Pt otherwise is not impulsive, mostly calm and resting in chair or in bed. Pt is fall risk, but hasn't been trying to get out of bed. On his one. 10/29 pt is stable. Pleasant today. There's no nausea or vomiting. No fever or chills. Memor y is still impaired, and activities of daily living still need to be assisted. Placement is found for pt today, and he can be discharged with continuing rehab. Pt has no problem with etoh detoxification. Pt has been without symptoms of withdrawal since transferr ed out of the ICU. Pt would benefit from a metal scalp plate as a consideration for his righ t frontal indentation. Active Problems: Alcohol abuse / no signs of DTs. Cont to monitor. 10/23 no signs of withdrawal symptoms. Alcohol withdrawal; resolved. Debility, unspecified; cont with therapy. Hyposmolality and/or hyponatremia; mild and stable. HTN: BP relatively controlled. Post concussion seizures / on keppra. Hospital records reviewed. Labs and radiologic studies and reports reviewed. Discussed find ings with participating physicians. Old records reviewed on EMR. Condition guarded and high risk for cardiopulmonary decompensation due to underlying condit ions Disposition: inpatient Code Status: Full Code Cecilio Bravo MD 10/29/2014 documente d in this encounter Progress Notes Emilie Sutherland MS CCC-INTELLIGENCE INTERN - 10/29/2014 3:00 PM PSTFormatting of this note might be diffe rent from the original. Therapy Progress Note by Emilie Sutherland MS CCC-INTELLIGENCE INTERN at 10/29/14 1500 Author: MS LINNETTE Ty Service: (none) Author Type: Speech Therapist Filed: 10/29/14 1508 Date of Service: 10/29/14 1500 Status: Signed Highway Maintenance Supervisor: MS MARLI TyINTELLIGENCE INTERN (Speech Therapist) 10/29/14 1500 INTELLIGENCE INTERN Last Visit INTELLIGENCE INTERN Received On 10/29/14 Requires INTELLIGENCE INTERN Follow Up No pt is being discharged from the hospital shortly. onversion T ransaction, Provider Unknown - 10/29/2014 11:18 AM PSTFormatting of this note might be diffe rent from the original. Case Management by TABITHA Armstrong at 10/29/14 1118 Author: TABITHA Armstrong Service: (none) Author Type: Boat Oar Maker Filed: 10/29/14 1119 Date of Service: 10/29/141117 Status: Signed Highway Maintenance Supervisor: TABITHA Armstrong (Boat Oar Maker) CM faxed MD's discharge orders to [facility] and arranged for a copy of pt's chart to be sent with pt. CM arranged for ambulance transport due to pt's confusion and risk of re-in jury of Subdural Hematoma/Craniotomy . CM notified pt & family of the discharge time. Pt had no other resource concerns. Discharge Plan: [facility] Jem Modiclementina NOEL onver alem Transaction, Provider Unknown - 10/29/2014 10:35 AM PST Therapy Progress Note by ИВАН Elaine at 10/29/14 1035 Author: ИВАН Elaine Service: (none) Author Type: Massage Therapist Filed: 10/29/14 1035 Date of Service: 10/29/14 1035 Status: Signed Highway Maintenance Supervisor: ИВАН Elaine (Massage Therapist) 10/29/14 1035 Massage Therapy Interventions Locations Back;Neck;Shoulder Massage Therapy Technique Effleurage;Petrissage;Eritrean massage Response to treatment Decreased muscle tension onver alem Transaction, Provider Unknown - 10/29/2014 10:05 AM PST Nurse Progress Note by Angelina Meade RN at 10/29/14 1005 Author: Angelina Meade RN Service: (none) Author Type: Registered Nurse Filed: 10/29/14 1044 Date of Service: 10/29/14 1005 Status: Signed Highway Maintenance Supervisor: Angelina Meade RN (Registered Nurse) Report given to MICHELL Corral at [place] Dorcas Willett, PT - 10/29/2014 9:20 AM PSTFormatting of this note might be different from t he original. Therapy Progress Note by Dorcas Holguin PT at 10/29/14919 Author: Dorcas Holguin PT Service: (none) Author Type: Physical Therapist Filed: 10/29/14 1112 Date of Service: 10/29/14919 Status: Signed Highway Maintenance Supervisor: Dorcas Holguin PT (Physical Therapist) 10/29/14919 PT Last Visit PT Received On 10/29/14 Reason for Treatment Brain injury Requires PT Follow Up Yes Follow up PT Only? No Focus for Next Treatment Formal Balance Assessment PT Eval/Reassessment Date 10/29/14 Assistance Required 2 person Database Coordinator Needed No Precautions Other Precautions helmet when up Other Comments Comments Pt supine in bed and wanting to get up to use the restroom. Pt was assisted to sit ting and sat EOB with assist leaning to the left. Pt then assisted to standing. The pt was a maxA for his first sit to stand however pt performed 6 sit to stands through out session a nd each one pt used less and less assist with his last one being performed on his own. Pt re porting he still needed to use the restroom and was taken to the bathroom using easy stander . Pt used restroom and was returned to bed using the same method. Pt ended session in bed al most asleep from the increased activity. Pt did need constant reminders through the session to look forward as pt would normally lean on his left side with his head down facing the avelina und, as the session went on pt had a harder and harder time keeping head up. Cognition Overall Cognitive Status WFL Orientation Level Oriented Bed Mobility Supine to Sit Mod assist (BLEs OOB or trunk to upright) Sit to Supine Mod assist (BLEs into bed or trunk to lower) Scooting Moderate assist Transfers Sit to/from Stand Maximal assist (to arise AND lower);Minimal assist (steadying/contact gua rd);Standby assist (from maxA down to SBA for last stand w/ easy stander ) Stand Pivot Transfers Maximal assist (to arise AND lower) (use of easy stand) Mobility Ambulation Assistance AIRAM;Not performed;Safety concerns Static Sitting Balance Static Sitting-Balance Support Right upper extremity support;Left upper extremity support;F eet supported Static Sitting-Level of Assistance Moderate assist;Maintains midline;Doesn't attain midline ;Leans L Static Sitting-Comment/Duration 5', 8' on toilet Activity Tolerance Activity Tolerance Treatment limited secondary to medical complications Nurse Made Aware RN notified Safety Devices Safety Devices in Place (call light in reach, bed alarm on ) Plan Treatment/Interventions Continue per Primary PT POC Progress Progressing toward goals Recommendation Recommendations SNF Barriers to Discharge Physical Deficits Impacting Functional [facility];Self-care Deficit s Impacting Functional [facility] Recommendation Comments Pt may be discharging to SNF today if ready. Cecilio Briones MD - 10/28/2014 3:03 PM PST . Progress Notes by Cecilio Bravo MD at 10/28/14 7178 Author: Cecilio Bravo MD Service: Hospitalist Author Type: Physician Filed: 10/28/14 1507 Date of Service: 10/28/141502 Status: Signed Highway Maintenance Supervisor: Cecilio Bravo MD (Physician) [facility] Service: Hospitalist Progress Note Hospital Day: LOS: 17 days Post-Op Day: 11 Days Post-Op SUBJECTIVE Patient Summary: Per ICU note: The patient is a 53 y.o. male with significant past medical history of chronic alcohol abus e and multiple falls. Per ED report from [facility]: he was drinking earlier today at home and fell twice. He went to bed and then he was noted to be having what they thought was seizure activity and th ey could not wake him and called EMS. He was taken to the ED at [facility] in [place] a nd then transferred to the ED here for emergent neurosurgical evaluation for large acute rig ht SDH with 2 cm midline shift. He was admitted to the ICU post-op craniectomy and yosef drains x2. by Dr. Delgado still intu bated and comatose off sedation with intermittent decerebrate posturing but has cough and co rneal reflexes. ICU Time Line: 10/11/2014: Decompressive Craniectomy on right for SDH GCS 4 10/12/2014: Patients neurologic examination continues to improve woke up and was able to fol low commands by wiggling the tip of his right thumb and left foot. 10/13/2014: Patients neurologic exam continues to improve. Had an episode of flash pulmonary edema with HTN and tachycardia. Diuresed. 10/14/2014: Extubated. 10/15/2014: Swallow eval and PT to advance today. Kye ordered for protection of craniecto my-orthotics consult 10/16/2014: CT unchanged right temporal hygroma, MLS 6 mm. per previous note: Patient Summary: Patient is a 53 year old male with past medical history of Chronic Alcohol Abuse, Dependenc e and multiple falls who was transferred from [facility] due to a fall, seizures . CT scan of the head there showed a large acute right SDH with 2 cm midline shift. Neurosur jarad services was involved and dr. Delgado performed Craniectomy and post procedure he was kept in ICU for close monitoring. Repeat CT scan showed Right-sided craniectomy involving of the entire right frontal parietal skull and right-sided cerebral edema was present with bra in extending outside of its typical cavity which was unchanged from previous study. PT also followed and Dr. Argueta consulted who initially thought he would be a good candidate to IPR bu t due to his weakness and persistent fatigue symptoms recommended SNF placement to improve s trength and mobility. natural resources professor are working on finding placement which may take few days, however if accepted then can be discharged for rehabilitation Events Overnight: 2 pt still somewhat confused, thought he was in [place]. He knew that he fell, but didn 't realize that he had hematoma and evacuation. 2/3; pt is doing well, but with some frustration today. Sitter at bedside. Still pending pl acement. 10/24 no change from yesterday. No nausea or vomiting. Appears to be rested, but not much act ivities during the day. 2/ no falls or incidents thus far since transfer from ICU. Pending bed placement. Narciso sweeney is considering pt at this time. 10/26 denies any or vomiting. Denies any dizziness. Patient is complaining of headaches. Preeti mtz is aware of this. Patient is sitting in chair with helmet on. 10/27 pt denies any nausea or vomiting. He is complaining of headaches. 10/28 pt denies any headache today. No nausea or vomiting, no impulsiveness, and not climbing out of bed or chair on his own. ROS: 12 point ROS reviewed and negative other than above. Scheduled Medications folic acid 1 mg Oral Daily heparin (porcine) 5000 unit/0.5mL 5,000 Units Subcutaneous 3 times per day levETIRAcetam 1,000 mg Oral BID QUEtiapine 25 mg Oral Nightly thiamine 100 mg Oral Daily Continuous Infusions PRN Medications hydrALAZINE, labetalol, morphine OR morphine OR [DISCONTINUED] morphine, oxyCODONE- acetaminophen OR oxyCODONE-acetaminophen OBJECTIVE Vital Signs: BP 126/81 | Pulse 78 | Temp(Src) 98.5 F (36.9 C) (Oral) | Resp 14 | Ht 1.778 m (5' 10") | Wt 84.9 kg (187 lb 2.7 oz) | BMI 26.86 kg/m2 | SpO2 95% Physical Exam: General Appearance: No apparent distress. Conversive and appropriate to place and person. HEENT: not Normocephalic, traumatic; midline cranial incision with diamond, incision clean, dry, and intact. Indentation of right parietal/frontal head is noted. pupils EOMI, PERRLA. Nose: no septal deviation or discharge. Ears: normal size, location, and contour. Throat dr y and without exudates. NECK: is supple, full ROM, nontender. LUNGS: clear to auscultation bilaterally with no wheezing, No rales or rhonchi audible. HEART: S1S2, Regular rate and rhythm without murmurs, gallops or rubs. ABDOMEN: Bowel sound is normoactive, abdomen is soft, non-tender non-distended ,no mass pal pable. EXTREMITIES:No lower extermity edema, No clubbing or cyanosis bilaterally. Good hand grasp bilaterally, and adequate fine motor functions. NEURO: Cranial Nerves 2-12 appears intact, Gait not tested, Muscle strength good bilaterall y, Sensation grossly intact. PSYCH: Alert, awake and Oriented to self only. SKIN: No bruises, rashes, lesions, or ulcers. DATA Recent Labs Lab 10/22/14 0324 WBC 7.9 RBC 3.62* HCT 36.2* MCV 99.9 MCH 33.2 MCHC 33.2 RDW 54.7* PLT 286 MPV 8.2 DIFFTYPE AUTOMATED Recent Labs Lab 10/25/14 0406 10/24/14 1412 10/22/14 0324 K 3.8 3.6 3.5 CL 101 101 100 CO2 28 29 26 ANIONGAP 9 8 11 GLUF 119* 118* 112* BUN 8 7* 8 CREATININE 0.54* 0.57* 0.65* BCR 15 12 12 CA 9.4 9.5 9.2 PROT -- 7.7 -- ALB -- 3.5* -- GLOB -- 4.2 -- BILITOT -- 0.6 -- ALP -- 225* -- AST -- 52* -- ALT -- 46 -- EGFR >60 >60 >60 BMP: Recent Labs Lab 10/25/14 0406 10/24/14 1412 10/22/14 0324 NA 134* 134* 133* K 3.8 3.6 3.5 CL 101 101 100 CO2 28 29 26 ANIONGAP 9 8 11 GLUF 119* 118* 112* BUN 8 7* 8 CREATININE 0.54* 0.57* 0.65* BCR 15 12 12 CA 9.4 9.5 9.2 EGFR >60 >60 >60 Recent Labs Lab 10/22/14 0324 MG 1.9 No results for input(s): APTT, INR, PTT in the last 168 hours. No results for input(s): CKTOTAL, TROPONINI, TROPONINT, CKMBINDEX in the last [address] Head Without Contrast 10/17/2014 EXAM: CT HEAD EXAM DATE: 10/17/2014 06:10 AM. CLINICAL HISTORY: Head injury. COMPARISON: 10/16/2014. TECHNIQUE: Multiaxial CT images were obtained from the foramen mag num to the vertex. IV contrast: None. Reformats: Coronal. FINDINGS: Again demonstrated is a right-sided craniectomy involving of the entire right frontal parietal skull . There is ext ra-axial hyper and hypoechoic fluid on the right . Right-sided cerebral edema is present wit h brain extending outside of its typical cavity . There is some loss of ugarte-white different iation in the right posterior inferior parietal region similar to the prior examination. A s mall amount of hemorrhage in the right posterior fossa could be subarachnoid or intraparench ymal. Leftward midline shift is 7 mm compared to 7 mm on the prior examination. Air and hemo rrhage is seen in the right scalp at the surgical site. There is also some low-density fluid outside of the brain cavity that may be CSF. The thickness is similar to the prior examinat ion at 1 cm. Mild subcutaneous emphysema in the right scalp has mildly decreased. Surgical s kin diamond are present. Mass effect is seen on the right lateral ventricle. The basal ciste rns are patent. 10/17/[address] compared to 10/16/2014. [facility] Electronically signed by Jakob Calzada MD on Oct 17 2014 7:38AM Referring Provider Line: [phone] ID: [id number] Ct Head Without Contrast 10/16/[address] without contrast. INDICATION: Decompressive craniectomy for head traum a Technique: head CT without contrast. COMPARISON: 10/14/2014 FINDINGS: Large decompressi ve craniectomy overlies the frontal, parietal and temporal lobes. The surgical drain overlyi ng the craniectomy site has been removed. There is a hypodense subpleural collection overlyi ng the right frontal convexity now measuring a to 11 mm in thickness, previously on the orde r of 6 mm. There is midline shift to the left by 6 mm, not changed significantly when remeas ured. Stable small, mixed density subdural collection over the right tentorium. Basal cister ns remain visible. No hydrocephalus. 10/16/2014 Right-sided drain has been removed. No evidence of interval hemorrhage or wors ening mass effect. Hypodense subdural collection over the right frontal convexity has increa sed in size. Serial followup suggested. No other significant interval change. Electronical ly signed by Jimbo Mckeon MD on Oct 16 2014 6:08AM Referring Provider Line: [phone] E ID: [id number] PROBLEM LIST ASSESSMENT & PLAN Principal Problem: Subdural hematoma, with 2cm midline shift;; post-traumatic; Traumatic brain injury, close d 10/11; s/p subdural craniotomy and evacuation by dr. Delgado. 10/14 extubated. 10/15 craniotomy drains removed. 10/16; transferred out of ICU. 10/22 dr. argueta consulted but deemed not a inpt rehab candidate. Still waiting for placement. Cont with physical therapy. Per CM note today : CM attempted to meet pt for d/c planning. CM could not arouse pt for d iscussion. CM routed updated medical notes to [facility] and [place]. PT recommending SNF. CM spoke w/ Tyler at [facility] and Mary Beth at [place], efaxed updated medical information, grace th are looking into the pt's case. RN reports pt has not had sitter and no behavioral proble ms. 10/23: Patient continues to do well. However he is a little bit more agitated today. Wanti fran to get out of bed. Sitter at bedside today. He is mentation however continues to be lab ile. 10/24 cont to have sitter, but pt interactive appropriate. Short term memory is very poor. 10/25 cont to have sitter, pt hasn't shown any impulsiveness today. Memory cont to be poor. No appropriate interactions at this time. 10/26 there are no beds at this time; planned for placement in [place] once patient is off sitter for 48 hrs. Otherwise patient continues to interact appropriately at this time and no impulsiveness is shown. Patient is mostly in chair or in bed and sleeping. 10/27 pt is alert today, no complications. Continue with PT. Pt without sitter. Pending plac ement still. 10/28 planning re-evaluation of patient's status for admission to [place]. Pt otherwise is not impulsive, mostly calm and resting in chair or in bed. Pt is fall risk, but hasn't been trying to get out of bed. On his one. Active Problems: Alcohol abuse 2/2 no signs of DTs. Cont to monitor. 10/23 no signs of withdrawal symptoms. Alcohol withdrawal; resolved. Debility, unspecified; cont with therapy. Hyposmolality and/or hyponatremia; mild and stable. HTN: BP relatively controlled. 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 Hospital records reviewed. Labs and radiologic studies and reports reviewed. Discussed find ings with participating physicians. Old records reviewed on EMR. Condition guarded and high risk for cardiopulmonary decompensation due to underlying condit ions Disposition: inpatient Code Status: Full Code Cecilio Bravo MD 10/28/2014 Maria Teresa Dhillon MA, CCC-INTELLIGENCE INTERN - 10/27/2014 4:14 PM PST Therapy Progress Note by Maria Teresa Lucas, MS CFY-INTELLIGENCE INTERN at 10/27/141613 Author: Maria Teresa Lucas MS CFY-INTELLIGENCE INTERN Service: (none) Author Type: Speech Therapist Filed: 10/27/141613 Date of Service: 10/27/141613 Status: Signed Highway Maintenance Supervisor: Maria Teresa Lucas MS CFY-INTELLIGENCE INTERN (Speech and Language Pathologist) 10/27/14 1600 Swallowing Assessment Eval Swallowing Treatment Yes Consistencies Consistencies Assessed Yes Thin Presentation Cup;Self Fed Oral Phase Thin WFL Pharyngeal Phase Cough - immediate;Delayed swallow initiated;Decreased laryngeal elevation upon palpation Roebling Presentation Self Fed;Cup Oral WFL Pharyngeal Phase No overt signs or symptoms of aspiration Dysphagia Mechanically Altered Presentation Spoon Oral Phase WFL Pharyngeal Phase No overt signs or symptoms of aspiration;Cough - Delayed (pt required cues to swallow - pt very agitated during trials) Recommendations Liquids Consistency Recommendations Roebling thick Diet Consistency Recommendation Pureed Recommendations Dysphagia treatment;1:1 supervision;Feeding assist;Set up with meals;Check on patients frequently throught out meals Risk for Aspiration Moderate Compensatory Swallowing Strategies Upright as possible for all oral intake;Alternate solids and liquids;Remain upright for 30 minutes after meals;Swallow 2 times per bite/sip;Small bi vipin/sips;Eat/feed slowly;Effortful swallow Recommended Form of Meds With puree Summary Pt had immediate cough X 2 with thin liquids by cup. Pt tolerated nectar thick - 6 oz. Pt trialed DMA and did not show any overt s/sx of aspiration but required cues to swallo w. Pt was very agitated during evaluation and attempted to get out of bed. Pt stated he want s to go home. As trials progressed, pt again became fatigued and neede cues to swallow. Jacob mmend cont. nectar thick liquids with puree as pt is still demonstrating increased fatigue w ith trials and requires cueing, Pt's RN states he was able to feed himself today and has don e well with current diet; suspect possible upgrade tomorrow. Pt tolerated nectar thick liqud is without s/sx of aspiration. ST to cont. to follow. Staff Notified RN Plan of Care Treatment Plan Continue with current plan Follow up treatments Diet tolerance monitoring;Patient/Family education;Assessment for upgr khadijah Dysphagia Goals Pt will have safe/efficient oral intake Roebling thick liquids;Puree diet;With feeding sherley t;Goal progressing Pt will tolerate diet upgrade trials With 1:1 supervision;Goal progressing onver alem Transaction, Provider Unknown - 10/27/2014 2:10 PM PST Therapy Progress Note by Katherin Garay PT at 10/27/14 1410 Author: Katherin Garay PT Service: (none) Author Type: Physical Therapist Filed: 10/27/14 7902 Date of Service: 10/27/14 1410 Status: Signed Highway Maintenance Supervisor: Katherin Garay PT (Physical Therapist) 10/27/14 1410 PT Last Visit PT Received On 10/27/14 Reason for Treatment Brain injury (TBI R SDH) Requires PT Follow Up Yes Follow up PT Only? Yes Assistance Required 2 person Database Coordinator Needed No Precautions Other Precautions helmet when up Other Comments Comments Pt in bed upon PT arrival, agreeable to mobilize from bed to chair. Pt quite mic rgic, but able to follow simple commands and respond appropriately to questions asked. Pt st ill requiring maxA x 2 for bed moblity and transfers. Pt minimally moved LEs during transfer s and required verbal cueing in order to initiate foot placement. Pt in recliner at bedside with call light in reach and chair alarm activated. RN aware. Cognition Overall Cognitive Status WFL Orientation Level Oriented Bed Mobility Supine to Sit Max assist (BLEs OOB & trunk to upright);x 2 person Transfers Sit to/from Stand Maximal assist (to arise AND lower);x 2 person Stand Pivot Transfers Maximal assist (to arise AND lower);x 2 person Mobility Ambulation Assistance AIRAM;Not performed;Safety concerns Balance Balance Yes Static Sitting Balance Static Sitting-Balance Support Right upper extremity support;Left upper extremity support;F eet supported Static Sitting-Level of Assistance Minimal assist;Leans L;Doesn't attain midline;Doesn't ma intain midline Static Sitting-Comment/Duration x 3 minutes Activity Tolerance Activity Tolerance Patient limited by fatigue Nurse Made Aware Yes Safety Devices Safety Devices in Place (Call light in reach, chair alarm activated ) Restraints Initially in Place No Plan Treatment/Interventions Continue per Primary PT POC Progress Slow progress, decreased activity tolerance Recommendation Recommendations SNF Equipment Recommended (Pending improvement ) Barriers to Discharge Physical Deficits Impacting Functional [facility];Self-care Deficit s Impacting Functional [facility] onver alem Farrellaction, Provider Unknown - 10/27/2014 11:15 AM PST Therapy Progress Note by CADEN Mcgowan at 10/27/14 1115 Author: CADEN Mcgowan Service: (none) Author Type: Occupational Therapist Filed: 10/27/14 1230 Date of Service: 10/27/14 1115 Status: Signed Highway Maintenance Supervisor: CADEN Mcgowan (Occupational Therapist) 10/27/14 1115 OT Last Visit OT Received On 10/27/14 Reason for Treatment Brain injury Requires OT Follow Up Yes Assistance Required 2 person Database Coordinator Needed No Family/Caregiver Present No Precautions Other Precautions helmet when up--R side bone flap Grooming Grooming Level of Assistance Setup;Moderate verbal cues Grooming Where Assessed Bed level Grooming Comments Pt. was able to complete grooming tasks--brushing teeth and washing face. Pt. requiring moderate VCs--for initiation and to continue task. Additional time to complet e. Pt. seated in bed, elevated HOB, after s/u. Therapeutic Exercise - ROM ROM Yes Other Exercise AROM HEP: elbow flex/ext, supination/pronation, shoulder flex/ext 10 reps x1 . VCs for hand placement and encouragement to complete reps. Additional time. With focus to increase facilitation and following tasks for ADLs, mobility and transfers. Pt. would benefi t from further AROM HEP to promote independence. Coordination Fine Motor Fine motor tasks--writing/signing name. Pt. required additional cueing and techn ique to complete task. pt. would benefit from further practice with hand writing and fine mo tor coordination tasks to promote independence during ADLs/IADLs. Activity Tolerance Activity Tolerance Patient limited by fatigue Safety Devices Safety Devices in Place Yes Type of Devices Bed alarm;Call lite in place Plan Treatment Interventions (Per OT POC) Progress Slow progress, decreased activity tolerance;Slow progress, medical status limitati ons Requires OT Follow Up Yes Recommendation Recommendation Acute OT;SNF Equipment Recommended Shower chair with back;Pm Head Cook;HHSH;Bedside commode Education Completed: Education Topic: ADLs, fine motor activities Completed with: Patient Completed by: Verbal Education, Demonstration Response to Education: Stated Understanding, Returned Demonstration, Reinforcement Harish koehler for Education Understanding Occupational Therapy Plan: Continue OT treatment per POC The following recommendations are made for d/c planning at this time: SNF-pt. Would benefit from further rehab to increase safety/indep, participation during ADLs, home safety, transfers and balance Barriers to d/c at this time include: Equipment needs bedside commode, shower chair, hand held shower head, pumper head Cognitive deficits impacting functional independence-would benefit from cognitive assess ment Physical deficits impacting functional independence Self-care deficits impacting functional independence Camille Montaño MD - 10/27/2014 8:08 AM PSTFormatting of this note might be different from marylou cook original. Progress Notes by Cecilio Bravo MD at 10/27/14807 Author: Cecilio Bravo MD Service: Hospitalist Author Type: Physician Filed: 10/27/14 1402 Date of Service: 10/27/14807 Status: Signed Highway Maintenance Supervisor: Cecilio Bravo MD (Physician) [facility] Service: Hospitalist Progress Note Hospital Day: LOS: 16 days Post-Op Day: 11 Days Post-Op SUBJECTIVE Patient Summary: Per ICU note: The patient is a 53 y.o. male with significant past medical history of chronic alcohol abus e and multiple falls. Per ED report from [facility]: he was drinking earlier today at home and fell twice. He went to bed and then he was noted to be having what they thought was seizure activity and th robbie could not wake him and called EMS. He was taken to the ED at [facility] in [place] a nd then transferred to the ED here for emergent neurosurgical evaluation for large acute rig ht SDH with 2 cm midline shift. He was admitted to the ICU post-op craniectomy and yosef drains x2. by Dr. Delgado still intu bated and comatose off sedation with intermittent decerebrate posturing but has cough and co rneal reflexes. ICU Time Line: 10/11/2014: Decompressive Craniectomy on right for SDH GCS 4 10/12/2014: Patients neurologic examination continues to improve woke up and was able to fol low commands by wiggling the tip of his right thumb and left foot. 10/13/2014: Patients neurologic exam continues to improve. Had an episode of flash pulmonary edema with HTN and tachycardia. Diuresed. 10/14/2014: Extubated. 10/15/2014: Swallow eval and PT to advance today. Kye ordered for protection of craniecto my-orthotics consult 10/16/2014: CT unchanged right temporal hygroma, MLS 6 mm. per previous note: Patient Summary: Patient is a 53 year old male with past medical history of Chronic Alcohol Abuse, Dependenc e and multiple falls who was transferred from [facility] due to a fall, seizures . CT scan of the head there showed a large acute right SDH with 2 cm midline shift. Neurosur jarad services was involved and dr. Delgado performed Craniectomy and post procedure he was kept in ICU for close monitoring. Repeat CT scan showed Right-sided craniectomy involving of the entire right frontal parietal skull and right-sided cerebral edema was present with bra in extending outside of its typical cavity which was unchanged from previous study. PT also followed and Dr. Argueta consulted who initially thought he would be a good candidate to IPR bu t due to his weakness and persistent fatigue symptoms recommended SNF placement to improve s trength and mobility. natural resources professor are working on finding placement which may take few days, however if accepted then can be discharged for rehabilitation Events Overnight: 2/ pt still somewhat confused, thought he was in [place]. He knew that he fell, but didn 't realize that he had hematoma and evacuation. 2/3; pt is doing well, but with some frustration today. Sitter at bedside. Still pending pl acement. 10/24 no change from yesterday. No nausea or vomiting. Appears to be rested, but not much act ivities during the day. 2 no falls or incidents thus far since transfer from ICU. Pending bed placement. Narciso sweeney is considering pt at this time. 10/26 denies any or vomiting. Denies any dizziness. Patient is complaining of headaches. Preeti mtz is aware of this. Patient is sitting in chair with helmet on. 10/27 pt denies any nausea or vomiting. He is complaining of headaches. ROS: 12 point ROS reviewed and negative other than above. Scheduled Medications folic acid 1 mg Oral Daily heparin (porcine) 5000 unit/0.5mL 5,000 Units Subcutaneous 3 times per day levETIRAcetam 1,000 mg Oral BID QUEtiapine 25 mg Oral Nightly thiamine 100 mg Oral Daily Continuous Infusions PRN Medications hydrALAZINE, labetalol, morphine OR morphine OR [DISCONTINUED] morphine, oxyCODONE- acetaminophen OR oxyCODONE-acetaminophen OBJECTIVE Vital Signs: BP 117/78 | Pulse 84 | Temp(Src) 97.9 F (36.6 C) (Oral) | Resp 16 | Ht 1.778 m (5' 10") | Wt 84.9 kg (187 lb 2.7 oz) | BMI 26.86 kg/m2 | SpO2 95% Physical Exam: General Appearance: No apparent distress. Conversive and appropriate to place and person. HEENT: not Normocephalic, traumatic; midline cranial incision with diamond, incision clean, dry, and intact. Indentation of right parietal/frontal head is noted. pupils EOMI, PERRLA. Nose: no septal deviation or discharge. Ears: normal size, location, and contour. Throat dr y and without exudates. NECK: is supple, full ROM, nontender. LUNGS: clear to auscultation bilaterally with no wheezing, No rales or rhonchi audible. HEART: S1S2, Regular rate and rhythm without murmurs, gallops or rubs. ABDOMEN: Bowel sound is normoactive, abdomen is soft, non-tender non-distended ,no mass pal pable. EXTREMITIES:No lower extermity edema, No clubbing or cyanosis bilaterally. Good hand grasp bilaterally, and adequate fine motor functions. NEURO: Cranial Nerves 2-12 appears intact, Gait not tested, Muscle strength good bilaterall y, Sensation grossly intact. PSYCH: Alert, awake and Oriented to self only. SKIN: No bruises, rashes, lesions, or ulcers. DATA Recent Labs Lab 10/22/14 0324 WBC 7.9 RBC 3.62* HCT 36.2* MCV 99.9 MCH 33.2 MCHC 33.2 RDW 54.7* PLT 286 MPV 8.2 DIFFTYPE AUTOMATED Recent Labs Lab 10/25/14 0406 10/24/14 1412 10/22/14 0324 K 3.8 3.6 3.5 CL 101 101 100 CO2 28 29 26 ANIONGAP 9 8 11 GLUF 119* 118* 112* BUN 8 7* 8 CREATININE 0.54* 0.57* 0.65* BCR 15 12 12 CA 9.4 9.5 9.2 PROT -- 7.7 -- ALB -- 3.5* -- GLOB -- 4.2 -- BILITOT -- 0.6 -- ALP -- 225* -- AST -- 52* -- ALT -- 46 -- EGFR >60 >60 >60 BMP: Recent Labs Lab 10/25/14 0406 10/24/14 1412 10/22/14 0324 NA 134* 134* 133* K 3.8 3.6 3.5 CL 101 101 100 CO2 28 29 26 ANIONGAP 9 8 11 GLUF 119* 118* 112* BUN 8 7* 8 CREATININE 0.54* 0.57* 0.65* BCR 15 12 12 CA 9.4 9.5 9.2 EGFR >60 >60 >60 Recent Labs Lab 10/22/14 0324 MG 1.9 No results for input(s): APTT, INR, PTT in the last 168 hours. No results for input(s): CKTOTAL, TROPONINI, TROPONINT, CKMBINDEX in the last [address] Head Without Contrast 10/17/2014 EXAM: CT HEAD EXAM DATE: 10/17/2014 06:10 AM. CLINICAL HISTORY: Head injury. COMPARISON: 10/16/2014. TECHNIQUE: Multiaxial CT images were obtained from the foramen mag num to the vertex. IV contrast: None. Reformats: Coronal. FINDINGS: Again demonstrated is a right-sided craniectomy involving of the entire right frontal parietal skull . There is ext ra-axial hyper and hypoechoic fluid on the right . Right-sided cerebral edema is present wit h brain extending outside of its typical cavity . There is some loss of ugarte-white different iation in the right posterior inferior parietal region similar to the prior examination. A s mall amount of hemorrhage in the right posterior fossa could be subarachnoid or intraparench ymal. Leftward midline shift is 7 mm compared to 7 mm on the prior examination. Air and hemo rrhage is seen in the right scalp at the surgical site. There is also some low-density fluid outside of the brain cavity that may be CSF. The thickness is similar to the prior examinat ion at 1 cm. Mild subcutaneous emphysema in the right scalp has mildly decreased. Surgical s kin diamond are present. Mass effect is seen on the right lateral ventricle. The basal ciste rns are patent. 10/17/[address] compared to 10/16/2014. RADIA Electronically signed by Jakob Calzada MD on Oct 17 2014 7:38AM Referring Provider Line: [phone] ID: [id number] Ct Head Without Contrast 10/16/[address] without contrast. INDICATION: Decompressive craniectomy for head traum a Technique: head CT without contrast. COMPARISON: 10/14/2014 FINDINGS: Large decompressi ve craniectomy overlies the frontal, parietal and temporal lobes. The surgical drain overlyi ng the craniectomy site has been removed. There is a hypodense subpleural collection overlyi ng the right frontal convexity now measuring a to 11 mm in thickness, previously on the orde r of 6 mm. There is midline shift to the left by 6 mm, not changed significantly when remeas ured. Stable small, mixed density subdural collection over the right tentorium. Basal cister ns remain visible. No hydrocephalus. 10/16/2014 Right-sided drain has been removed. No evidence of interval hemorrhage or wors ening mass effect. Hypodense subdural collection over the right frontal convexity has increa sed in size. Serial followup suggested. No other significant interval change. Electronical ly signed by Jimbo Mckeon MD on Oct 16 2014 6:08AM Referring Provider Line: [phone] E ID: [id number] PROBLEM LIST ASSESSMENT & PLAN Principal Problem: Subdural hematoma, with 2cm midline shift;; post-traumatic; Traumatic brain injury, close d 10/11; s/p subdural craniotomy and evacuation by dr. Delgado. 10/14 extubated. 10/15 craniotomy drains removed. 10/16; transferred out of ICU. 10/22 dr. argueta consulted but deemed not a inpt rehab candidate. Still waiting for placement. Cont with physical therapy. Per CM note today : CM attempted to meet pt for d/c planning. CM could not arouse pt for d iscussion. CM routed updated medical notes to [facility] and [place]. PT recommending SNF. CM spoke w/ Tyler at [facility] and Mary Beth at [place], efaxed updated medical information, grace th are looking into the pt's case. RN reports pt has not had sitter and no behavioral proble ms. 2: Patient continues to do well. However he is a little bit more agitated today. Wanti ng to get out of bed. Sitter at bedside today. He is mentation however continues to be lab ile. 10/24 cont to have sitter, but pt interactive appropriate. Short term memory is very poor. 10/25 cont to have sitter, pt hasn't shown any impulsiveness today. Memory cont to be poor. No appropriate interactions at this time. 10/26 is to have no beds at this time for planned for placement in [place] once patient is off sitter for 48 hrs. Otherwise patient continues to interact appropriately at this time and no impulsiveness is shown. Patient is mostly a time in that chair or in bed and sleepin g. 10/27 pt is alert today, no complications. Continue with PT. Pt without sitter. Pending plac ement still. Active Problems: Alcohol abuse 10/22 no signs of DTs. Cont to monitor. 10/23 no signs of withdrawal symptoms. Alcohol withdrawal; resolved. Debility, unspecified; cont with therapy. Hyposmolality and/or hyponatremia; mild and stable. HTN: BP relatively controlled. 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 Hospital records reviewed. Labs and radiologic studies and reports reviewed. Discussed find ings with participating physicians. Old records reviewed on EMR. Condition guarded and high risk for cardiopulmonary decompensation due to underlying condit ions Disposition: inpatient Code Status: Full Code Cecilio Bravo MD 10/27/2014 att, CADNE Wolf - 10/26/2014 4:31 PM PSTFormatting of this note might be different from the o jennifer. Therapy Progress Note by CADEN Narvaez at 10/26/14 8311 Author: CADEN Narvaez Service: (none) Author Type: Occupational Therapist Filed: 10/26/14 9485 Date of Service: 10/26/14 1631 Status: Signed Highway Maintenance Supervisor: Shannon M Malena, OTR/L (Occupational Therapist) 10/26/14 1600 Time Calculation Start Time 1600 Stop Time 1615 Time Calculation (min) 15 min $ ADLs/IADLs ADLS/IADLS Charges Home management training $Home Management Training 8-22 mins Therapy Time 15 Minutes 10/26/14 1600 OT Last Visit OT Received On 10/26/14 Reason for Treatment Brain injury Requires OT Follow Up Yes Assistance Required 2 person Database Coordinator Needed No Family/Caregiver Present No Precautions Other Precautions helmet when up . R skin flap Other Comments Comments pt able to be awakened. answering in one and two word answers. able to indicate pr eferences. Smiling on occassion. Eyes open about 15 seconds at the longest. Pt coughed one time after finished scrubbing teeth: moist and productive Grooming Grooming Level of Assistance Setup Grooming Comments washcloth and basin at chest hieght HOB elevated to chest height. pt able to squeeze excess water out of cloth using two hands with adaquate strength in a twisting m otion. able to wipe all parts of his face. slowly. Toothbursh dampened. pt brings to mouth a nd brushes his teeth in small ant/post motion and then appears to doze off. Cues to open eye s, he opens eyes widely and begins again. Went to both sides of his mouth. about 4 rounds of gentle [id number]-ya awakened. Activity Tolerance Activity Tolerance Patient limited by fatigue (able to maintain grasp on washcloth and toothbrush) Safety Devices Safety Devices in Place Yes Type of Devices Bed alarm;Call lite in place;Swallow precautions;RN notified Restraints Initially in Place (all 4 bed rails elevated) Plan Treatment Interventions ADL retraining Progress Slow progress, decreased activity tolerance;Slow progress, cognitive deficits OT Frequency 5x/wk Requires OT Follow Up Yes Recommendation Recommendation Acute OT 10/26/14 1600 Grooming Which grooming tasks completed during this session? Oral care;Wash/rinse/dry face Number of tasks completed 2 Which grooming task(s) did the patient complete WITHOUT ASSIST? Oral care;Wash/rinse/dry fa ce Number of tasks completed w/o assist 2 Patient completed % of overall grooming tasks 100 Percent 5 - Patient completes 100% of task and requires helper FOR? obtaining grooming items;prepar ing water;supervision;safety considerations Grooming impacted by Cognitive deficits;Manual dexterity;Endurance;Safety concerns;Precauti ons Where grooming completed Sitting supine in bed, HOB elevated Grooming Final Score 5 Comprehension (in ambler language) 3 - Patient requires moderate assist to comprehend DUE TO? needing parts of sentences repea stephenie 2 - Patient requires maximal assist to comprehend DUE TO? only understanding simple express ions Comprehension Final Score 2 - Maximal assistance Expression (in ambler language) 2 - Patient requires maximal assist to express DUE TO? only expressing single words Expression Final Score 2 Social Interaction 5 - Patient requires supervision for interaction DUE TO? encouragement to interact;encourag ement to participate 2 - Patient requires maximal assistance for interaction DUE TO? requiring frequent redirect ion Social Interaction Final Score 2 Problem Solving 1 - Patient requires total assistance for basic problem solving DUE TO? bed/tab alarm for s afety;requires redirection nearly all of the time Problem Solving Final Score 1 Memory 1 - Patient requires total assistance for memory DUE TO? bed/tab alarm for safety Memory Final Score 1 atShannon galeana OTR/L - 10/26/2014 3:54 PM PST Therapy Progress Note by CADEN Narvaez at 10/26/14 1554 Author: CADEN Narvaez Service: (none) Author Type: Occupational Therapist Filed: 10/26/14 1632 Date of Service: 10/26/14 1554 Status: Signed Highway Maintenance Supervisor: CADEN Narvaez (Occupational Therapist) Chart opened in error onversion Transa ction, Provider Unknown - 10/26/2014 1:34 PM PST Progress Notes by Anna Venegas RD at 10/26/14 2033 Author: Anna Venegas RD Service: (none) Author Type: Registered Dietitian Filed: 10/26/14 5294 Date of Service: 10/26/14 8964 Status: Signed Highway Maintenance Supervisor: Anna Venegas RD (Doyle Dietitian) Nutrition Follow-Up Moderate/high nutrition risk follow-up. Assessment: Pt asleep in chair at time of assessment. Wt history/weight change: No new weights to assess since last follow-up. Order pending for daily weights to help assess nutritional status. Nutritionally pertinent labs: B. Nutrition-focused physical findings: Increased nutrient needs s/p TBI. Diet order/current intake: Pureed diet with NTL ordered at this time. Pt eating 50-100% of meals. Kitchen is sending high kcal/high protein foods on all trays. Estimated needs: based on current weight of 85 kg Kcal: 0235-8736 (25-30 kcal/kg) Protein: 102-128 gr (1.2-1.5 gr/kg) Nutrition Diagnosis: Increased nutrient needs related to increased physiological demands for protein/energy as e videnced by traumatic brain injury. Intervention: Continue high calorie/high protein foods on meal trays based on current texture allowance p er speech therapy. Goal: Weight maintenance. Pt will consume >75% of all meals/snacks provided. Recommendations: 1) Continue high calorie/high protein foods on meal/snack trays. 2) Daily weights. Monitoring: Will follow up in 4 days, per nutrition protocol. Anna Venegas, DAMON 10/26/2014 Thalia Melissa PT - 10/26/2014 1:13 PM PST Therapy Progress Note by Thalia Simmons PT at 10/26/14 1313 Author: Thalia Simmons PT Service: (none) Author Type: Physical Therapist Filed: 10/26/14 4260 Date of Service: 10/26/14 1313 Status: Signed Highway Maintenance Supervisor: Thalia Simmons PT (Physical Therapist) 10/26/14 1313 PT Last Visit PT Received On 10/26/14 Reason for Treatment Brain injury (SDH, bone flap removed) Requires PT Follow Up Yes Follow up PT Only? Yes Assistance Required 2 person Precautions Other Precautions helmet on for OOB Other Comments Comments RN requesting assist to help pt back to bed, as he is quite lethargic. Pt not abl e to take steps as well as this morning, only able to take 2 steps with max A x 2. Attempte d bed ex, but pt was quite fatigued and had minimal movement. Positioned pt comfortably. Cognition Overall Cognitive Status WFL Orientation Level Oriented Bed Mobility Rolling Moderate assist Sit to Supine Max assist (BLEs into bed & trunk to lower);x 2 person Transfers Sit to/from Stand Moderate assist (to arise OR lower);x 2 person Bed to/from Chair Moderate assist (to arise OR lower);x 2 person Stand Pivot Transfers Moderate assist (to arise OR lower);x 2 person Mobility Ambulation Assistance Maximal assist;X2 Maximal Ambulation Distance (feet) 2 steps Total Ambulation Distance (feet) 2 steps Distance limited by? Patient's ability (quite lethargic) Pattern Shuffling (PT blocking stance knee to prevent buckling) Supine Supine-Exercise Type Ankle pumps;Heel slides;Short arc quads (pt too lethargic...only performed ~5 reps each) Activity Tolerance Activity Tolerance Patient limited by fatigue Nurse Made Aware MICHELL Morrison Safety Devices Safety Devices in Place (bed alarm in use, call light in reach) Plan Treatment/Interventions Continue per Primary PT POC Progress Slow progress, decreased activity tolerance Recommendation Recommendations SNF onversion Transact ion, Provider Unknown - 10/26/2014 10:18 AM PSTFormatting of this note might be different fr om the original. Therapy Progress Note by ИВАН Elaine at 10/26/14 1018 Author: ИВАН Elaine Service: (none) Author Type: Massage Therapist Filed: 10/26/14 1018 Date of Service: 10/26/14 1018 Status: Signed Highway Maintenance Supervisor: ИВАН Elaine (Massage Therapist) 10/26/14 1018 Massage Therapy Interventions Locations Back;Neck;Shoulder Massage Therapy Technique Effleurage;Petrissage;Eritrean massage Response to treatment Decreased muscle tension;Decreased pain tNatalee gardner MS CCC-INTELLIGENCE INTERN - 10/26/2014 10:14 AM PST Therapy Progress Note by Natalee Plata MS CCC-INTELLIGENCE INTERN at 10/26/14 1014 Author: Natalee Plata MS CCC-INTELLIGENCE INTERN Service: (none) Author Type: Speech and Language Pathologist Filed: 10/26/14 1014 Date of Service: 10/26/144 Status: Signed Highway Maintenance Supervisor: Natalee Plata MS CCC-INTELLIGENCE INTERN (Speech and Language Pathologist) 10/26/1445 Swallowing Assessment Eval Swallowing Treatment Yes Initial Swallow Assessment Behavior/Cognition Cooperative;Neuro impairment Patient Positioning Upright in chair Consistencies Consistencies Assessed Yes Thin Presentation Cup;Self Fed Oral Phase Thin WFL Pharyngeal Phase Cough - immediate Roebling Presentation Cup;Self Fed Oral WFL Pharyngeal Phase No overt signs or symptoms of aspiration Dysphagia Mechanically Altered Presentation Spoon Oral Phase WFL Pharyngeal Phase No overt signs or symptoms of aspiration Dysphagia Advanced Presentation Spoon Oral Phase WFL Pharyngeal Phase No overt signs or symptoms of aspiration Recommendations Liquids Consistency Recommendations Roebling thick Diet Consistency Recommendation Pureed Recommendations Dysphagia treatment;1:1 supervision;Feeding assist;Set up with meals;Check on patients frequently throught out meals (assist as needed) Risk for Aspiration Moderate Compensatory Swallowing Strategies Upright as possible for all oral intake;Remain upright f or 30 minutes after meals;Swallow 2 times per bite/sip;Slow rate presentation;No straws;Smal l bites/sips;Eat/feed slowly;Effortful swallow Recommended Form of Meds With puree Summary Pt tolerated trials of DMA, however sig inc'd fatigue was noted as trials progresse d. Pt is recommended to continue on current diet and liquids d/t inc'd fatigue and cough pos t thin trials. ST to continue to f/u. Pt was oriented to place and situation and partially d ate today. Per RN more alert and w.o sitter. Staff Notified RN Plan of Care Treatment Plan Dysphagia treatment;Continue with current plan Natalee Plata MS CCC-INTELLIGENCE INTERN Me shari Douglas PT - 10/26/2014 8:58 AM PSTFormatting of this note might be different from the madelin booker. Therapy Progress Note by Thalia Simmons PT at 10/26/1403 Author: Thalia Simmons PT Service: (none) Author Type: Physical Therapist Filed: 10/26/1437 Date of Service: 10/26/1458 Status: Signed Highway Maintenance Supervisor: Thalia Troy, PT (Physical Therapist) 10/26/14 0858 PT Last Visit PT Received On 10/26/14 Reason for Treatment Brain injury (SDH. bone flap removed) Requires PT Follow Up Yes Follow up PT Only? Yes Assistance Required 2 person Database Coordinator Needed No Precautions Other Precautions helmet on for OOB Other Comments Comments Pt in bed, agreeable to PT. Performed bed ex, and pt is able to move his RLE weak ly to exercises (last Wednesday, only trace contractions). Pt performed LLE exercises with PT providing some resistance. Cognition Overall Cognitive Status WFL Orientation Level Oriented Bed Mobility Rolling Moderate assist Supine to Sit Max assist (BLEs OOB & trunk to upright) Scooting Minimal assist Transfers Sit to/from Stand Moderate assist (to arise OR lower);x 2 person Bed to/from Chair Moderate assist (to arise OR lower);x 2 person Stand Pivot Transfers Moderate assist (to arise OR lower);Patient appears safe Mobility Weight Bearing Status WBAT RLE;WBAT LLE Ambulation Assistance Maximal assist;X2 Maximal Ambulation Distance (feet) 2 ft Total Ambulation Distance (feet) 2 ft Distance limited by? Patient's ability;Therapist/staff discretion (safety concerns) Pattern Shuffling (Pt able to advance either limb today (very small step), but ) Assistive Device Other (Comment) (...needs stance knee blocked to prevent buckling; HHAx2) Static Sitting Balance Static Sitting-Comment/Duration Performed reaching to PT's hand, lateral, forward, and acro ss midline. Pt leans L each time, but is getting better at self-correcting to verbal comman d Static Standing Balance Static Standing-Comment/Duration Performed 3 reps of sit to stands, mod A x 2 Supine Supine-Exercise Type Ankle pumps;Short arc quads;ABD/ADD;Heel slides (AROM RLE; resisted LLE) Supine-Exercise Comments x 10-15 reps Modalities Modalities (Use of pillows and towel to position pt upright in chair ) Activity Tolerance Activity Tolerance Patient limited by fatigue Nurse Made Aware MICHELL Morrison Safety Devices Type of Devices (call light in hand, alarm on chair) Plan Treatment/Interventions Continue per Primary PT POC Progress Slow progress, decreased activity tolerance Recommendation Recommendations SNF Equipment Recommended (TBD) Barriers to Discharge Physical Deficits Impacting Functional [facility];Self-care Deficit s Impacting Functional [facility];Neurological Impairment (see comment);Pain VS: 117/82 87 98% ra Cecilio Briones MD - 10/26/2014 8:09 AM PST Progress Notes by Cecilio Bravo MD at 10/26/14 0809 Author: Cecilio Bravo MD Service: Hospitalist Author Type: Physician Filed: 10/26/14 8228 Date of Service: 10/26/14808 Status: Signed Highway Maintenance Supervisor: Cecilio Bravo MD (Physician) [facility] Service: Hospitalist Progress Note Hospital Day: LOS: 15 days Post-Op Day: 11 Days Post-Op SUBJECTIVE Patient Summary: Per ICU note: The patient is a 53 y.o. male with significant past medical history of chronic alcohol abus e and multiple falls. Per ED report from [facility]: he was drinking earlier today at home and fell twice. He went to bed and then he was noted to be having what they thought was seizure activity and th ey could not wake him and called EMS. He was taken to the ED at [facility] in [place] a nd then transferred to the ED here for emergent neurosurgical evaluation for large acute rig ht SDH with 2 cm midline shift. He was admitted to the ICU post-op craniectomy and yosef drains x2. by Dr. Delgado still intu bated and comatose off sedation with intermittent decerebrate posturing but has cough and co rneal reflexes. ICU Time Line: 10/11/2014: Decompressive Craniectomy on right for SDH GCS 4 10/12/2014: Patients neurologic examination continues to improve woke up and was able to fol low commands by wiggling the tip of his right thumb and left foot. 10/13/2014: Patients neurologic exam continues to improve. Had an episode of flash pulmonary edema with HTN and tachycardia. Diuresed. 10/14/2014: Extubated. 10/15/2014: Swallow eval and PT to advance today. Kye ordered for protection of craniecto my-orthotics consult 10/16/2014: CT unchanged right temporal hygroma, MLS 6 mm. per previous note: Patient Summary: Patient is a 53 year old male with past medical history of Chronic Alcohol Abuse, Dependenc e and multiple falls who was transferred from [facility] due to a fall, seizures . CT scan of the head there showed a large acute right SDH with 2 cm midline shift. Neurosur jarad services was involved and dr. Delgado performed Craniectomy and post procedure he was kept in ICU for close monitoring. Repeat CT scan showed Right-sided craniectomy involving of the entire right frontal parietal skull and right-sided cerebral edema was present with bra in extending outside of its typical cavity which was unchanged from previous study. PT also followed and Dr. Argueta consulted who initially thought he would be a good candidate to IPR bu t due to his weakness and persistent fatigue symptoms recommended SNF placement to improve s trength and mobility. natural resources professor are working on finding placement which may take few days, however if accepted then can be discharged for rehabilitation Events Overnight: 2/2 pt still somewhat confused, thought he was in [place]. He knew that he fell, but didn 't realize that he had hematoma and evacuation. 2/3; pt is doing well, but with some frustration today. Sitter at bedside. Still pending pl acement. 2/ no change from yesterday. No nausea or vomiting. Appears to be rested, but not much act ivities during the day. 2/5 no falls or incidents thus far since transfer from ICU. Pending bed placement. Narciso sweeney is considering pt at this time. 2/6 denies any or vomiting. Denies any dizziness. Patient is complaining of headaches. Preeti mtz is aware of this. Patient is sitting in chair with helmet on. ROS: 12 point ROS reviewed and negative other than above. Scheduled Medications folic acid 1 mg Oral Daily heparin (porcine) 5000 unit/0.5mL 5,000 Units Subcutaneous 3 times per day levETIRAcetam 1,000 mg Oral BID QUEtiapine 25 mg Oral Nightly thiamine 100 mg Oral Daily Continuous Infusions PRN Medications hydrALAZINE, labetalol, morphine OR morphine OR [DISCONTINUED] morphine, oxyCODONE- acetaminophen OR oxyCODONE-acetaminophen OBJECTIVE Vital Signs: BP 111/75 | Pulse 79 | Temp(Src) 98.3 F (36.8 C) (Oral) | Resp 16 | Ht 1.778 m (5' 10") | Wt 84.9 kg (187 lb 2.7 oz) | BMI 26.86 kg/m2 | SpO2 98% Physical Exam: General Appearance: No apparent distress. Conversive and appropriate to place and person. HEENT: not Normocephalic, traumatic; midline cranial incision with diamond, incision clean, dry, and intact. Indentation of right parietal/frontal head is noted. pupils EOMI, PERRLA. Nose: no septal deviation or discharge. Ears: normal size, location, and contour. Throat dr y and without exudates. NECK: is supple, full ROM, nontender. LUNGS: clear to auscultation bilaterally with no wheezing, No rales or rhonchi audible. HEART: S1S2, Regular rate and rhythm without murmurs, gallops or rubs. ABDOMEN: Bowel sound is normoactive, abdomen is soft, non-tender non-distended ,no mass pal pable. EXTREMITIES:No lower extermity edema, No clubbing or cyanosis bilaterally. Good hand grasp bilaterally, and adequate fine motor functions. NEURO: Cranial Nerves 2-12 appears intact, Gait not tested, Muscle strength good bilaterall y, Sensation grossly intact. PSYCH: Alert, awake and Oriented to self only. SKIN: No bruises, rashes, lesions, or ulcers. DATA Recent Labs Lab 10/22/14 0324 10/20/14 0335 WBC 7.9 9.4 RBC 3.62* 3.83* HCT 36.2* 38.0* MCV 99.9 99.2 MCH 33.2 33.3 MCHC 33.2 33.6 RDW 54.7* 56.9* PLT 286 327 MPV 8.2 8.3 DIFFTYPE AUTOMATED AUTOMATED Recent Labs Lab 10/25/14 0406 10/24/14 1412 10/22/14 0324 K 3.8 3.6 3.5 CL 101 101 100 CO2 28 29 26 ANIONGAP 9 8 11 GLUF 119* 118* 112* BUN 8 7* 8 CREATININE 0.54* 0.57* 0.65* BCR 15 12 12 CA 9.4 9.5 9.2 PROT -- 7.7 -- ALB -- 3.5* -- GLOB -- 4.2 -- BILITOT -- 0.6 -- ALP -- 225* -- AST -- 52* -- ALT -- 46 -- EGFR >60 >60 >60 BMP: Recent Labs Lab 10/25/14 0406 10/24/14 1412 10/22/14 0324 NA 134* 134* 133* K 3.8 3.6 3.5 CL 101 101 100 CO2 28 29 26 ANIONGAP 9 8 11 GLUF 119* 118* 112* BUN 8 7* 8 CREATININE 0.54* 0.57* 0.65* BCR 15 12 12 CA 9.4 9.5 9.2 EGFR >60 >60 >60 Recent Labs Lab 10/22/14 0324 10/20/14 0335 MG 1.9 2.1 No results for input(s): APTT, INR, PTT in the last 168 hours. No results for input(s): CKTOTAL, TROPONINI, TROPONINT, CKMBINDEX in the last [address] Head Without Contrast 10/17/2014 EXAM: CT HEAD EXAM DATE: 10/17/2014 06:10 AM. CLINICAL HISTORY: Head injury. COMPARISON: 10/16/2014. TECHNIQUE: Multiaxial CT images were obtained from the foramen mag num to the vertex. IV contrast: None. Reformats: Coronal. FINDINGS: Again demonstrated is a right-sided craniectomy involving of the entire right frontal parietal skull . There is ext ra-axial hyper and hypoechoic fluid on the right . Right-sided cerebral edema is present wit h brain extending outside of its typical cavity . There is some loss of ugarte-white different iation in the right posterior inferior parietal region similar to the prior examination. A s mall amount of hemorrhage in the right posterior fossa could be subarachnoid or intraparench ymal. Leftward midline shift is 7 mm compared to 7 mm on the prior examination. Air and hemo rrhage is seen in the right scalp at the surgical site. There is also some low-density fluid outside of the brain cavity that may be CSF. The thickness is similar to the prior examinat ion at 1 cm. Mild subcutaneous emphysema in the right scalp has mildly decreased. Surgical s kin diamond are present. Mass effect is seen on the right lateral ventricle. The basal ciste rns are patent. 10/17/[address] compared to 10/16/2014. RADIA Electronically signed by Jakob Calzada MD on Oct 17 2014 7:38AM Referring Provider Line: [phone] ID: [id number] Ct Head Without Contrast 10/16/[address] without contrast. INDICATION: Decompressive craniectomy for head traum a Technique: head CT without contrast. COMPARISON: 10/14/2014 FINDINGS: Large decompressi ve craniectomy overlies the frontal, parietal and temporal lobes. The surgical drain overlyi ng the craniectomy site has been removed. There is a hypodense subpleural collection overlyi ng the right frontal convexity now measuring a to 11 mm in thickness, previously on the orde r of 6 mm. There is midline shift to the left by 6 mm, not changed significantly when remeas ured. Stable small, mixed density subdural collection over the right tentorium. Basal cister ns remain visible. No hydrocephalus. 10/16/2014 Right-sided drain has been removed. No evidence of interval hemorrhage or wors ening mass effect. Hypodense subdural collection over the right frontal convexity has increa sed in size. Serial followup suggested. No other significant interval change. Electronical ly signed by Jimbo Mckeon MD on Oct 16 2014 6:08AM Referring Provider Line: [phone] E ID: [id number] PROBLEM LIST ASSESSMENT & PLAN Principal Problem: Subdural hematoma, with 2cm midline shift;; post-traumatic; Traumatic brain injury, close d 10/11; s/p subdural craniotomy and evacuation by dr. Delgado. 10/14 extubated. 10/15 craniotomy drains removed. 10/16; transferred out of ICU. 10/22 dr. argueta consulted but deemed not a inpt rehab candidate. Still waiting for placement. Cont with physical therapy. Per CM note today : CM attempted to meet pt for d/c planning. CM could not arouse pt for d iscussion. CM routed updated medical notes to [facility] and [place]. PT recommending SNF. CM spoke w/ Tyler at [facility] and Mary Beth at [place], efaxed updated medical information, grace th are looking into the pt's case. RN reports pt has not had sitter and no behavioral proble ms. 2/3: Patient continues to do well. However he is a little bit more agitated today. Wanti ng to get out of bed. Sitter at bedside today. He is mentation however continues to be lab ile. 2/4 cont to have sitter, but pt interactive appropriate. Short term memory is very poor. 10/25 cont to have sitter, pt hasn't shown any impulsiveness today. Memory cont to be poor. No appropriate interactions at this time. 10/26 is to have no beds at this time for planned for placement in [place] once patient is off sitter for 48 hrs. Otherwise patient continues to interact appropriately at this time and no impulsiveness is shown. Patient is mostly a time in that chair or in bed and sleepin g. Active Problems: Alcohol abuse 2/ no signs of DTs. Cont to monitor. 10/23 no signs of withdrawal symptoms. Alcohol withdrawal; resolved. Debility, unspecified; cont with therapy. Hyposmolality and/or hyponatremia; mild and stable. HTN: BP relatively controlled. 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 Hospital records reviewed. Labs and radiologic studies and reports reviewed. Discussed find ings with participating physicians. Old records reviewed on EMR. Condition guarded and high risk for cardiopulmonary decompensation due to underlying condit ions Disposition: inpatient Code Status: Full Code Cecilio Bravo MD 10/26/2014 Cecilio Montaño MD - 10/25/2014 4:24 PM PSTFormatting of this note might be different from the o riginal. Progress Notes by Cecilio Bravo MD at 10/25/14 4587 Author: Cecilio Bravo MD Service: Hospitalist Author Type: Physician Filed: 10/25/14 6966 Date of Service: 10/25/141623 Status: Signed Highway Maintenance Supervisor: Cecilio Bravo MD (Physician) [facility] Service: Hospitalist Progress Note Hospital Day: LOS: 14 days Post-Op Day: 11 Days Post-Op SUBJECTIVE Patient Summary: Per ICU note: The patient is a 53 y.o. male with significant past medical history of chronic alcohol abus e and multiple falls. Per ED report from [facility]: he was drinking earlier today at home and fell twice. He went to bed and then he was noted to be having what they thought was seizure activity and th ey could not wake him and called EMS. He was taken to the ED at [facility] in [place] a nd then transferred to the ED here for emergent neurosurgical evaluation for large acute rig ht SDH with 2 cm midline shift. He was admitted to the ICU post-op craniectomy and yosef drains x2. by Dr. Delgado still intu bated and comatose off sedation with intermittent decerebrate posturing but has cough and co rneal reflexes. ICU Time Line: 10/11/2014: Decompressive Craniectomy on right for SDH GCS 4 10/12/2014: Patients neurologic examination continues to improve woke up and was able to fol low commands by wiggling the tip of his right thumb and left foot. 10/13/2014: Patients neurologic exam continues to improve. Had an episode of flash pulmonary edema with HTN and tachycardia. Diuresed. 10/14/2014: Extubated. 10/15/2014: Swallow eval and PT to advance today. Kye ordered for protection of craniecto my-orthotics consult 10/16/2014: CT unchanged right temporal hygroma, MLS 6 mm. per previous note: Patient Summary: Patient is a 53 year old male with past medical history of Chronic Alcohol Abuse, Dependenc e and multiple falls who was transferred from [facility] due to a fall, seizures . CT scan of the head there showed a large acute right SDH with 2 cm midline shift. Neurosur jarad services was involved and dr. Delgado performed Craniectomy and post procedure he was kept in ICU for close monitoring. Repeat CT scan showed Right-sided craniectomy involving of the entire right frontal parietal skull and right-sided cerebral edema was present with bra in extending outside of its typical cavity which was unchanged from previous study. PT also followed and Dr. Argueta consulted who initially thought he would be a good candidate to IPR bu t due to his weakness and persistent fatigue symptoms recommended SNF placement to improve s trength and mobility. natural resources professor are working on finding placement which may take few days, however if accepted then can be discharged for rehabilitation Events Overnight: 2/2 pt still somewhat confused, thought he was in [place]. He knew that he fell, but didn 't realize that he had hematoma and evacuation. 2/3; pt is doing well, but with some frustration today. Sitter at bedside. Still pending pl acement. 10/24 no change from yesterday. No nausea or vomiting. Appears to be rested, but not much act ivities during the day. 2/5 no falls or incidents thus far since transfer from ICU. Pending bed placement. Narciso sweeney is considering pt at this time. ROS: 12 point ROS reviewed and negative other than above. Scheduled Medications folic acid 1 mg Oral Daily heparin (porcine) 5000 unit/0.5mL 5,000 Units Subcutaneous 3 times per day levETIRAcetam 1,000 mg Oral BID QUEtiapine 25 mg Oral Nightly thiamine 100 mg Oral Daily Continuous Infusions PRN Medications hydrALAZINE, labetalol, morphine OR morphine OR [DISCONTINUED] morphine, oxyCODONE- acetaminophen OR oxyCODONE-acetaminophen OBJECTIVE Vital Signs: BP 103/63 | Pulse 93 | Temp(Src) 97.5 F (36.4 C) (Axillary) | Resp 16 | Ht 1.778 m (5' 10") | Wt 84.9 kg (187 lb 2.7 oz) | BMI 26.86 kg/m2 | SpO2 96% Physical Exam: General Appearance: No apparent distress. Conversive and appropriate to place and person. HEENT: not Normocephalic, traumatic; midline cranial incision with diamond, incision clean, dry, and intact. Indentation of right parietal/frontal head is noted. pupils EOMI, PERRLA. Nose: no septal deviation or discharge. Ears: normal size, location, and contour. Throat dr y and without exudates. NECK: is supple, full ROM, nontender. LUNGS: clear to auscultation bilaterally with no wheezing, No rales or rhonchi audible. HEART: S1S2, Regular rate and rhythm without murmurs, gallops or rubs. ABDOMEN: Bowel sound is normoactive, abdomen is soft, non-tender non-distended ,no mass pal pable. EXTREMITIES:No lower extermity edema, No clubbing or cyanosis bilaterally. Good hand grasp bilaterally, and adequate fine motor functions. NEURO: Cranial Nerves 2-12 appears intact, Gait not tested, Muscle strength good bilaterall y, Sensation grossly intact. PSYCH: Alert, awake and Oriented to self only. SKIN: No bruises, rashes, lesions, or ulcers. DATA Recent Labs Lab 10/22/14 0324 10/20/14 0335 WBC 7.9 9.4 RBC 3.62* 3.83* HCT 36.2* 38.0* MCV 99.9 99.2 MCH 33.2 33.3 MCHC 33.2 33.6 RDW 54.7* 56.9* PLT 286 327 MPV 8.2 8.3 DIFFTYPE AUTOMATED AUTOMATED Recent Labs Lab 10/25/146 10/24/14141110/22/14 0324 K 3.8 3.6 3.5 CL 101 101 100 CO2 28 29 26 ANIONGAP 9 8 11 GLUF 119* 118* 112* BUN 8 7* 8 CREATININE 0.54* 0.57* 0.65* BCR 15 12 12 CA 9.4 9.5 9.2 PROT -- 7.7 -- ALB -- 3.5* -- GLOB -- 4.2 -- BILITOT -- 0.6 -- ALP -- 225* -- AST -- 52* -- ALT -- 46 -- EGFR >60 >60 >60 BMP: Recent Labs Lab 10/25/1440510/24/14141110/22/14 0324 NA 134* 134* 133* K 3.8 3.6 3.5 CL 101 101 100 CO2 28 29 26 ANIONGAP 9 8 11 GLUF 119* 118* 112* BUN 8 7* 8 CREATININE 0.54* 0.57* 0.65* BCR 15 12 12 CA 9.4 9.5 9.2 EGFR >60 >60 >60 Recent Labs Lab 10/22/14 0324 10/20/14 0335 MG 1.9 2.1 No results for input(s): APTT, INR, PTT in the last 168 hours. No results for input(s): CKTOTAL, TROPONINI, TROPONINT, CKMBINDEX in the last [address] Head Without Contrast 10/17/2014 EXAM: CT HEAD EXAM DATE: 10/17/2014 06:10 AM. CLINICAL HISTORY: Head injury. COMPARISON: 10/16/2014. TECHNIQUE: Multiaxial CT images were obtained from the foramen mag num to the vertex. IV contrast: None. Reformats: Coronal. FINDINGS: Again demonstrated is a right-sided craniectomy involving of the entire right frontal parietal skull . There is ext ra-axial hyper and hypoechoic fluid on the right . Right-sided cerebral edema is present wit h brain extending outside of its typical cavity . There is some loss of ugarte-white different iation in the right posterior inferior parietal region similar to the prior examination. A s mall amount of hemorrhage in the right posterior fossa could be subarachnoid or intraparench ymal. Leftward midline shift is 7 mm compared to 7 mm on the prior examination. Air and hemo rrhage is seen in the right scalp at the surgical site. There is also some low-density fluid outside of the brain cavity that may be CSF. The thickness is similar to the prior examinat ion at 1 cm. Mild subcutaneous emphysema in the right scalp has mildly decreased. Surgical s kin diamond are present. Mass effect is seen on the right lateral ventricle. The basal ciste rns are patent. 10/17/[address] compared to 10/16/2014. RADIA Electronically signed by Jakob Calzada MD on Oct 17 2014 7:38AM Referring Provider Line: [phone] ID: [id number] Ct Head Without Contrast 10/16/[address] without contrast. INDICATION: Decompressive craniectomy for head traum a Technique: head CT without contrast. COMPARISON: 10/14/2014 FINDINGS: Large decompressi ve craniectomy overlies the frontal, parietal and temporal lobes. The surgical drain overlyi ng the craniectomy site has been removed. There is a hypodense subpleural collection overlyi ng the right frontal convexity now measuring a to 11 mm in thickness, previously on the orde r of 6 mm. There is midline shift to the left by 6 mm, not changed significantly when remeas ured. Stable small, mixed density subdural collection over the right tentorium. Basal cister ns remain visible. No hydrocephalus. 10/16/2014 Right-sided drain has been removed. No evidence of interval hemorrhage or wors ening mass effect. Hypodense subdural collection over the right frontal convexity has increa sed in size. Serial followup suggested. No other significant interval change. Electronical ly signed by Jimbo Mckeon MD on Oct 16 2014 6:08AM Referring Provider Line: [phone] E ID: [id number] PROBLEM LIST ASSESSMENT & PLAN Principal Problem: Subdural hematoma, with 2cm midline shift;; post-traumatic; Traumatic brain injury, close d 10/11; s/p subdural craniotomy and evacuation by dr. Delgado. 10/14 extubated. 10/15 craniotomy drains removed. 10/16; transferred out of ICU. 10/22 dr. argueta consulted but deemed not a inpt rehab candidate. Still waiting for placement. Cont with physical therapy. Per CM note today : CM attempted to meet pt for d/c planning. CM could not arouse pt for d iscussion. CM routed updated medical notes to [facility] and [place]. PT recommending SNF. CM spoke w/ Tyler at [facility] and Mary Beth at [place], efaxed updated medical information, grace th are looking into the pt's case. RN reports pt has not had sitter and no behavioral proble ms. 10/23: Patient continues to do well. However he is a little bit more agitated today. Wanti ng to get out of bed. Sitter at bedside today. He is mentation however continues to be lab ile. 10/24 cont to have sitter, but pt interactive appropriate. Short term memory is very poor. 10/25 cont to have sitter, pt hasn't shown any impulsiveness today. Memory cont to be poor. No appropriate interactions at this time. Active Problems: Alcohol abuse 10/22 no signs of DTs. Cont to monitor. 10/23 no signs of withdrawal symptoms. Alcohol withdrawal; resolved. Debility, unspecified; cont with therapy. Hyposmolality and/or hyponatremia; mild and stable. HTN: BP relatively controlled. 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 Hospital records reviewed. Labs and radiologic studies and reports reviewed. Discussed find ings with participating physicians. Old records reviewed on EMR. Condition guarded and high risk for cardiopulmonary decompensation due to underlying condit ions Disposition: inpatient Code Status: Full Code Cecilio Bravo MD 10/25/2014 Lin Richardson MS CCC-INTELLIGENCE INTERN - 10/25/2014 3:31 PM PST Therapy Progress Note by Emilie Sutherland MS CCC-INTELLIGENCE INTERN at 10/25/14 8759 Author: Emilie Sutherland MS CCC-INTELLIGENCE INTERN Service: (none) Author Type: Speech Therapist Filed: 10/25/14 1532 Date of Service: 10/25/14 1531 Status: Signed Highway Maintenance Supervisor: Emilie Sutherland MS CCC-INTELLIGENCE INTERN (Speech Therapist) 10/25/14 1531 INTELLIGENCE INTERN Last Visit INTELLIGENCE INTERN Received On 10/25/14 Requires INTELLIGENCE INTERN Follow Up Unavailable (pt asleep and has been very agitated.) per sitter no coughing during meals and seem content with NT liquids Tamiko Zaragoza PT - 10/25/2014 11:45 AM PSTFormatting of this note might be different from the velasquez garsia Therapy Progress Note by Trina Maldonado PT at 10/25/14 1145 Author: Trina Maldonado PT Service: (none) Author Type: Physical Therapist Filed: 10/25/14 1242 Date of Service: 10/25/14 1145 Status: Signed Highway Maintenance Supervisor: Trina Maldonado PT (Physical Therapist) 10/25/14 1145 PT Last Visit PT Received On 10/25/14 Reason for Treatment Brain injury (right SDH) Requires PT Follow Up Yes Follow up PT Only? Yes Assistance Required 2 person Database Coordinator Needed No Precautions Other Precautions helmet for OOB activities, fall risk Other Comments Comments Upon PT arrival, pt supine in bed with HOB elevated. pt agreeable to PT. Sitter at bedside. ModA for rolling, MaxA x 1 for supine to sit (HOB elevated). Pt able to sit at EOB with Aguilar with B UE supported and without B UE supported. Pt stood with stedy with modAx1-2 (2nd person for stand by). Able to pull self up with stedy. Once pt standing, pt required m Heidi x2 to maintain midline. Pt appeared to lean to R especially when fatigue. pt able to mar ch in place with modA x 2 for support while holding onto the stedy. B knee buckling noted wi marching in place. Due to knee buckling while marching, did not initiate gait training to day. ModA x 1 for sit to supine. Pt able to move his legs up on the bed independently. At th e end of the session, pt supine in bed with HOB elevated. Sitter present in room. RN aware. vital signs: at rest: 108/69, HR 96, 94% RA Cognition Overall Cognitive Status WFL Orientation Level Oriented Bed Mobility Rolling Moderate assist;x 1 person Supine to Sit Max assist (BLEs OOB & trunk to upright);x 1 person Sit to Supine Mod assist (BLEs into bed or trunk to lower);x 1 person (pt able to move his legs up the bed independently) Transfers Sit to/from Stand Moderate assist (to arise OR lower);x 1 person;x 2 person (x2, 2nd person for stand by, using stedy) Mobility Weight Bearing Status WBAT RLE;WBAT LLE Ambulation Assistance Not performed;Safety concerns Static Sitting Balance Static Sitting-Balance Support Right upper extremity support;Left upper extremity support;N o upper extremity support;Feet supported Static Sitting-Level of Assistance Moderate assist Static Sitting-Comment/Duration Able to sit up at EOB while holding on to the bedrail and b ed. He is also able to sit up for 1 minute without holding on Static Standing Balance Static Standing-Balance Support Right upper extremity support;Left upper extremity support; Trunk support Static Standing-Level of Assistance Moderate assist;Leans R;Doesn't maintain midline (modA x2, ) Static Standing-Comment/Duration Pt able to stand with stedy with modA x2. Pt appeared to l amaury R especially when he fatigue. Dynamic Standing Balance Dynamic Standing-Balance Activities (marching in place) Dynamic Standing-Balance Support Right upper extremity support;Left upper extremity support ;Trunk support Standing Dynamic Level of Assist Moderate assist (modA x2) Dynamic Standing-Comments/Duration Pt able to stand with stedy and march in place, B knee b uckled, not safe to ambulate at this time. Activity Tolerance Activity Tolerance Patient limited by fatigue Nurse Made Aware RN aware Safety Devices Safety Devices in Place Yes Type of Devices 1:1 sitter maintained Plan Treatment/Interventions Continue per Primary PT POC Progress Slow progress, decreased activity tolerance Recommendation Recommendations SNF onversion Transacti on, Provider Unknown - 10/25/2014 10:02 AM PSTFormatting of this note might be different fro m the original. Case Management by TABITHA Armstrong at 10/25/14 1002 Author: TABITHA Armstrong Service: (none) Author Type: Boat Oar Maker Filed: 10/25/14 1003 Date of Service: 10/25/14 1002 Status: Signed Highway Maintenance Supervisor: TABITHA Armstrong (Boat Oar Maker) CM received a phone call from Loan at [facility] who agreed to accept pt once he dem onstrates he does not require a sitter for 48hrs. Jem NOEL onver alem Transaction, Provider Unknown - 10/24/2014 2:43 PM PST Case Management by TABITHA Armstrong at 10/24/14 1443 Author: TABITHA Armstrong Service: (none) Author Type: Boat Oar Maker Filed: 10/24/14 1456 Date of Service: 10/24/14 1443 Status: Signed Highway Maintenance Supervisor: TABITHA Armstrong (Boat Oar Maker) CM phoned both [facility] to see if they can accept pt. [facility] declined to accept pt. [place] is still considering him. CM faxed a referral to [facility] as well. Jem NOEL Camille Montaño MD - 10/24/2014 2:00 PM PSTFormatting of this note might be different from marylou cook original. Progress Notes by Cecilio Bravo MD at 10/24/14 1400 Author: Cecilio Bravo MD Service: Hospitalist Author Type: Physician Filed: 10/24/14 1401 Date of Service: 10/24/14 1400 Status: Signed Highway Maintenance Supervisor: Cecilio Bravo MD (Physician) [facility] Service: Hospitalist Progress Note Hospital Day: LOS: 13 days Post-Op Day: 11 Days Post-Op SUBJECTIVE Patient Summary: Per ICU note: The patient is a 53 y.o. male with significant past medical history of chronic alcohol abus e and multiple falls. Per ED report from [facility]: he was drinking earlier today at home and fell twice. He went to bed and then he was noted to be having what they thought was seizure activity and th robbie could not wake him and called EMS. He was taken to the ED at [facility] in [place] a nd then transferred to the ED here for emergent neurosurgical evaluation for large acute rig ht SDH with 2 cm midline shift. He was admitted to the ICU post-op craniectomy and yosef drains x2. by Dr. Delgado still intu bated and comatose off sedation with intermittent decerebrate posturing but has cough and co rneal reflexes. ICU Time Line: 10/11/2014: Decompressive Craniectomy on right for SDH GCS 4 10/12/2014: Patients neurologic examination continues to improve woke up and was able to fol low commands by wiggling the tip of his right thumb and left foot. 10/13/2014: Patients neurologic exam continues to improve. Had an episode of flash pulmonary edema with HTN and tachycardia. Diuresed. 10/14/2014: Extubated. 10/15/2014: Swallow eval and PT to advance today. Kye ordered for protection of craniecto my-orthotics consult 10/16/2014: CT unchanged right temporal hygroma, MLS 6 mm. per previous note: Patient Summary: Patient is a 53 year old male with past medical history of Chronic Alcohol Abuse, Dependenc e and multiple falls who was transferred from [facility] due to a fall, seizures . CT scan of the head there showed a large acute right SDH with 2 cm midline shift. Neurosur jarad services was involved and dr. Delgado performed Craniectomy and post procedure he was kept in ICU for close monitoring. Repeat CT scan showed Right-sided craniectomy involving of the entire right frontal parietal skull and right-sided cerebral edema was present with bra in extending outside of its typical cavity which was unchanged from previous study. PT also followed and Dr. Argueta consulted who initially thought he would be a good candidate to IPR bu t due to his weakness and persistent fatigue symptoms recommended SNF placement to improve s trength and mobility. natural resources professor are working on finding placement which may take few days, however if accepted then can be discharged for rehabilitation Events Overnight: 2/2 pt still somewhat confused, thought he was in [place]. He knew that he fell, but didn 't realize that he had hematoma and evacuation. 2/; pt is doing well, but with some frustration today. Sitter at bedside. Still pending pl acement. 2/4 no change from yesterday. No nausea or vomiting. Appears to be rested, but not much act ivities during the day. ROS: 12 point ROS reviewed and negative other than above. Scheduled Medications folic acid 1 mg Oral Daily heparin (porcine) 5000 unit/0.5mL 5,000 Units Subcutaneous 3 times per day levETIRAcetam 1,000 mg Oral BID QUEtiapine 25 mg Oral Nightly thiamine 100 mg Oral Daily Continuous Infusions PRN Medications hydrALAZINE, labetalol, morphine OR morphine OR morphine, oxyCODONE-acetaminophen * *OR oxyCODONE-acetaminophen OBJECTIVE Vital Signs: BP 119/83 | Pulse 80 | Temp(Src) 97.6 F (36.4 C) (Oral) | Resp 18 | Ht 1.778 m (5' 10") | Wt 84.9 kg (187 lb 2.7 oz) | BMI 26.86 kg/m2 | SpO2 97% Physical Exam: General Appearance: No apparent distress. Conversive and appropriate to place and person. HEENT: not Normocephalic, traumatic; midline cranial incision with diamond, incision clean, dry, and intact. Indentation of right parietal/frontal head is noted. pupils EOMI, PERRLA. Nose: no septal deviation or discharge. Ears: normal size, location, and contour. Throat dr y and without exudates. NECK: is supple, full ROM, nontender. LUNGS: clear to auscultation bilaterally with no wheezing, No rales or rhonchi audible. HEART: S1S2, Regular rate and rhythm without murmurs, gallops or rubs. ABDOMEN: Bowel sound is normoactive, abdomen is soft, non-tender non-distended ,no mass pal pable. EXTREMITIES:No lower extermity edema, No clubbing or cyanosis bilaterally. Good hand grasp bilaterally, and adequate fine motor functions. NEURO: Cranial Nerves 2-12 appears intact, Gait not tested, Muscle strength good bilaterall y, Sensation grossly intact. PSYCH: Alert, awake and Oriented to self only. SKIN: No bruises, rashes, lesions, or ulcers. DATA Recent Labs Lab 10/22/14 0324 10/20/14 0335 10/18/14 0413 WBC 7.9 9.4 9.3 RBC 3.62* 3.83* 3.77* HCT 36.2* 38.0* 37.3* MCV 99.9 99.2 98.9 MCH 33.2 33.3 32.3 MCHC 33.2 33.6 32.6 RDW 54.7* 56.9* 58.6* PLT 286 327 274 MPV 8.2 8.3 8.1 DIFFTYPE AUTOMATED AUTOMATED AUTOMATED Recent Labs Lab 10/22/14 0324 10/21/14 0400 10/20/14 0335 K 3.5 3.6 3.8 CL 100 100 98* CO2 26 27 26 ANIONGAP 11 10 11 GLUF 112* 119* 121* BUN 8 11 10 CREATININE 0.65* 0.64* 0.60* BCR 12 17 17 CA 9.2 9.4 9.3 EGFR >60 >60 >60 BMP: Recent Labs Lab 10/22/1432310/21/14 0400 10/20/14 0335 NA 133* 133* 131* K 3.5 3.6 3.8 CL 100 100 98* CO2 26 27 26 ANIONGAP 11 10 11 GLUF 112* 119* 121* BUN 8 11 10 CREATININE 0.65* 0.64* 0.60* BCR 12 17 17 CA 9.2 9.4 9.3 EGFR >60 >60 >60 Recent Labs Lab 10/22/1432310/20/14 0335 10/18/14 0413 MG 1.9 2.1 2.4 No results for input(s): APTT, INR, PTT in the last 168 hours. No results for input(s): CKTOTAL, TROPONINI, TROPONINT, CKMBINDEX in the last [address] Head Without Contrast 10/17/2014 EXAM: CT HEAD EXAM DATE: 10/17/2014 06:10 AM. CLINICAL HISTORY: Head injury. COMPARISON: 10/16/2014. TECHNIQUE: Multiaxial CT images were obtained from the foramen mag num to the vertex. IV contrast: None. Reformats: Coronal. FINDINGS: Again demonstrated is a right-sided craniectomy involving of the entire right frontal parietal skull . There is ext ra-axial hyper and hypoechoic fluid on the right . Right-sided cerebral edema is present wit h brain extending outside of its typical cavity . There is some loss of ugarte-white different iation in the right posterior inferior parietal region similar to the prior examination. A s mall amount of hemorrhage in the right posterior fossa could be subarachnoid or intraparench ymal. Leftward midline shift is 7 mm compared to 7 mm on the prior examination. Air and hemo rrhage is seen in the right scalp at the surgical site. There is also some low-density fluid outside of the brain cavity that may be CSF. The thickness is similar to the prior examinat ion at 1 cm. Mild subcutaneous emphysema in the right scalp has mildly decreased. Surgical s kin diamond are present. Mass effect is seen on the right lateral ventricle. The basal ciste rns are patent. 10/17/[address] compared to 10/16/2014. RADIA Electronically signed by Jakob Calzada MD on Oct 17 2014 7:38AM Referring Provider Line: [phone] ID: [id number] Ct Head Without Contrast 10/16/[address] without contrast. INDICATION: Decompressive craniectomy for head traum a Technique: head CT without contrast. COMPARISON: 10/14/2014 FINDINGS: Large decompressi ve craniectomy overlies the frontal, parietal and temporal lobes. The surgical drain overlyi ng the craniectomy site has been removed. There is a hypodense subpleural collection overlyi ng the right frontal convexity now measuring a to 11 mm in thickness, previously on the orde r of 6 mm. There is midline shift to the left by 6 mm, not changed significantly when remeas ured. Stable small, mixed density subdural collection over the right tentorium. Basal cister ns remain visible. No hydrocephalus. 10/16/2014 Right-sided drain has been removed. No evidence of interval hemorrhage or wors ening mass effect. Hypodense subdural collection over the right frontal convexity has increa sed in size. Serial followup suggested. No other significant interval change. Electronical ly signed by Jimbo Mckeon MD on Oct 16 2014 6:08AM Referring Provider Line: [phone] E ID: [id number] PROBLEM LIST ASSESSMENT & PLAN Principal Problem: Subdural hematoma, with 2cm midline shift;; post-traumatic; Traumatic brain injury, close d 10/11; s/p subdural craniotomy and evacuation by dr. Delgado. 10/14 extubated. 10/15 craniotomy drains removed. 10/16; transferred out of ICU. 10/22 dr. argueta consulted but deemed not a inpt rehab candidate. Still waiting for placement. Cont with physical therapy. Per CM note today : CM attempted to meet pt for d/c planning. CM could not arouse pt for d iscussion. CM routed updated medical notes to [facility] and [place]. PT recommending SNF. CM spoke w/ Tyler at [facility] and Mary Beth at [facility], efaxed updated medical information, grace th are looking into the pt's case. RN reports pt has not had sitter and no behavioral proble ms. 2: Patient continues to do well. However he is a little bit more agitated today. Wanti ng to get out of bed. Sitter at bedside today. He is mentation however continues to be lab ile. 10/24 cont to have sitter, but pt interactive appropriate. Short term memory is very poor. Active Problems: Alcohol abuse / no signs of DTs. Cont to monitor. 10/23 no signs of withdrawal symptoms. Alcohol withdrawal; resolved. Debility, unspecified; cont with therapy. Hyposmolality and/or hyponatremia; mild and stable. HTN: BP relatively controlled. 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 Hospital records reviewed. Labs and radiologic studies and reports reviewed. Discussed find ings with participating physicians. Old records reviewed on EMR. Condition guarded and high risk for cardiopulmonary decompensation due to underlying condit ions Disposition: inpatient Code Status: Full Code Cecilio Bravo MD 10/24/2014 ovarrubi Jessica ospina MA, CCC-INTELLIGENCE INTERN - 10/24/2014 11:48 AM PST Therapy Progress Note by Jessica Headley MA CCC-INTELLIGENCE INTERN at 10/24/14 5305 Author: Jessica Headley MA CCC-INTELLIGENCE INTERN Service: (none) Author Type: Speech and Language Pathologist Filed: 10/24/14 1140 Date of Service: 10/24/141147 Status: Signed Highway Maintenance Supervisor: Jessica Headley MA CCC-INTELLIGENCE INTERN (Speech and Language Pathologist) 10/24/14 1128 Swallowing Assessment Eval Swallowing Treatment Yes Initial Swallow Assessment Behavior/Cognition Cooperative;Alert Consistencies Consistencies Assessed Yes Thin Presentation Cup;Spoon Oral Phase Thin WFL Pharyngeal Phase Cough - immediate (immediate coughing with thins via cup) Roebling Presentation Cup;Self Fed Oral WFL Pharyngeal Phase No overt signs or symptoms of aspiration Puree Presentation Spoon Oral Phase WFL Pharyngeal No overt signs or symptoms of aspiration;Delayed Swallow Recommendations Liquids Consistency Recommendations Roebling thick Diet Consistency Recommendation Pureed Recommendations Dysphagia treatment;Feeding assist;Set up with meals Risk for Aspiration Moderate Compensatory Swallowing Strategies Upright as possible for all oral intake;Remain upright f or 30 minutes after meals;Small bites/sips;Eat/feed slowly;Swallow 2 times per bite/sip Recommended Form of Meds With puree Summary Pt tolerating 7-8 oz of puree with no overt s/sx of aspiration. Rec pt be upgraded to full meal of puree and NT liquids. Pt continues to demonstrate s/sx of asp with thin liqu ids and therefore will remain on NT. ST to continue to follow. Staff Notified RN;Sitter Plan of Care Treatment Plan Dysphagia treatment;ST to follow Dysphagia Goals Pt will have safe/efficient oral intake Roebling thick liquids;Puree diet;With feeding sherley t;Goal progressing Pt will tolerate diet upgrade trials With 1:1 supervision;Goal progressing onver alem Willard, Provider Unknown - 10/24/2014 10:07 AM PST Therapy Progress Note by ИВАН Elaine at 10/24/14 1007 Author: ИВАН Elaine Service: (none) Author Type: Massage Therapist Filed: 10/24/141006 Date of Service: 10/24/14 1007 Status: Signed Highway Maintenance Supervisor: ИВАН Elaine (Massage Therapist) 10/24/14 1007 Massage Therapy Interventions Locations Back;Neck;Shoulder Massage Therapy Technique Effleurage;Petrissage;Eritrean massage Response to treatment Decreased muscle tension Camille Montaño MD - 10/23/2014 4:38 PM PSTFormatting of this note might be different from marylou cook original. Progress Notes by Cecilio Bravo MD at 10/23/14 1638 Author: Cecilio Bravo MD Service: Hospitalist Author Type: Physician Filed: 10/23/14 1641 Date of Service: 10/23/141637 Status: Signed Highway Maintenance Supervisor: Cecilio Bravo MD (Physician) [facility] Service: Hospitalist Progress Note Hospital Day: LOS: 12 days Post-Op Day: 11 Days Post-Op SUBJECTIVE Patient Summary: Per ICU note: The patient is a 53 y.o. male with significant past medical history of chronic alcohol abus e and multiple falls. Per ED report from [facility]: he was drinking earlier today at home and fell twice. He went to bed and then he was noted to be having what they thought was seizure activity and th ey could not wake him and called EMS. He was taken to the ED at [facility] in [place] a nd then transferred to the ED here for emergent neurosurgical evaluation for large acute rig ht SDH with 2 cm midline shift. He was admitted to the ICU post-op craniectomy and yosef drains x2. by Dr. Delgado still intu bated and comatose off sedation with intermittent decerebrate posturing but has cough and co rneal reflexes. ICU Time Line: 10/11/2014: Decompressive Craniectomy on right for SDH GCS 4 10/12/2014: Patients neurologic examination continues to improve woke up and was able to fol low commands by wiggling the tip of his right thumb and left foot. 10/13/2014: Patients neurologic exam continues to improve. Had an episode of flash pulmonary edema with HTN and tachycardia. Diuresed. 10/14/2014: Extubated. 10/15/2014: Swallow eval and PT to advance today. Kye ordered for protection of craniecto my-orthotics consult 10/16/2014: CT unchanged right temporal hygroma, MLS 6 mm. per previous note: Patient Summary: Patient is a 53 year old male with past medical history of Chronic Alcohol Abuse, Dependenc e and multiple falls who was transferred from [facility] due to a fall, seizures . CT scan of the head there showed a large acute right SDH with 2 cm midline shift. Neurosur jarad services was involved and dr. Delgado performed Craniectomy and post procedure he was kept in ICU for close monitoring. Repeat CT scan showed Right-sided craniectomy involving of the entire right frontal parietal skull and right-sided cerebral edema was present with bra in extending outside of its typical cavity which was unchanged from previous study. PT also followed and Dr. Argueta consulted who initially thought he would be a good candidate to IPR bu t due to his weakness and persistent fatigue symptoms recommended SNF placement to improve s trength and mobility. natural resources professor are working on finding placement which may take few days, however if accepted then can be discharged for rehabilitation Events Overnight: 2/2 pt still somewhat confused, thought he was in [place]. He knew that he fell, but didn 't realize that he had hematoma and evacuation. 2/3; pt is doing well, but with some frustration today. Sitter at bedside. Still pending pl acement. ROS: 12 point ROS reviewed and negative other than above. Scheduled Medications folic acid 1 mg Oral Daily heparin (porcine) 5000 unit/0.5mL 5,000 Units Subcutaneous 3 times per day levETIRAcetam 1,000 mg Oral BID QUEtiapine 25 mg Oral Nightly thiamine 100 mg Oral Daily Continuous Infusions PRN Medications hydrALAZINE, labetalol, morphine OR morphine OR morphine, oxyCODONE-acetaminophen * *OR oxyCODONE-acetaminophen OBJECTIVE Vital Signs: BP 124/82 | Pulse 82 | Temp(Src) 97.7 F (36.5 C) (Oral) | Resp 20 | Ht 1.778 m (5' 10") | Wt 84.9 kg (187 lb 2.7 oz) | BMI 26.86 kg/m2 | SpO2 98% Physical Exam: General Appearance: No apparent distress. Conversive and appropriate to place and person. HEENT: not Normocephalic, traumatic; midline cranial incision with diamond, incision clean, dry, and intact. Indentation of right parietal/frontal head is noted. pupils EOMI, PERRLA. Nose: no septal deviation or discharge. Ears: normal size, location, and contour. Throat dr y and without exudates. NECK: is supple, full ROM, nontender. LUNGS: clear to auscultation bilaterally with no wheezing, No rales or rhonchi audible. HEART: S1S2, Regular rate and rhythm without murmurs, gallops or rubs. ABDOMEN: Bowel sound is normoactive, abdomen is soft, non-tender non-distended ,no mass pal pable. EXTREMITIES:No lower extermity edema, No clubbing or cyanosis bilaterally. Good hand grasp bilaterally, and adequate fine motor functions. NEURO: Cranial Nerves 2-12 appears intact, Gait not tested, Muscle strength good bilaterall y, Sensation grossly intact. PSYCH: Alert, awake and Oriented to self only. SKIN: No bruises, rashes, lesions, or ulcers. DATA Recent Labs Lab 10/22/1432310/20/1433410/18/14412 WBC 7.9 9.4 9.3 RBC 3.62* 3.83* 3.77* HCT 36.2* 38.0* 37.3* MCV 99.9 99.2 98.9 MCH 33.2 33.3 32.3 MCHC 33.2 33.6 32.6 RDW 54.7* 56.9* 58.6* PLT 286 327 274 MPV 8.2 8.3 8.1 DIFFTYPE AUTOMATED AUTOMATED AUTOMATED Recent Labs Lab 10/22/1432310/21/140 10/20/14 033 K 3.5 3.6 3.8 CL 100 100 98* CO2 26 27 26 ANIONGAP 11 10 11 GLUF 112* 119* 121* BUN 8 11 10 CREATININE 0.65* 0.64* 0.60* BCR 12 17 17 CA 9.2 9.4 9.3 EGFR >60 >60 >60 BMP: Recent Labs Lab 10/22/1432310/21/1439910/20/14 033 NA 133* 133* 131* K 3.5 3.6 3.8 CL 100 100 98* CO2 26 27 26 ANIONGAP 11 10 11 GLUF 112* 119* 121* BUN 8 11 10 CREATININE 0.65* 0.64* 0.60* BCR 12 17 17 CA 9.2 9.4 9.3 EGFR >60 >60 >60 Recent Labs Lab 10/22/1432310/20/1433410/18/14 041 MG 1.9 2.1 2.4 No results for input(s): APTT, INR, PTT in the last 168 hours. No results for input(s): CKTOTAL, TROPONINI, TROPONINT, CKMBINDEX in the last [address] Head Without Contrast 10/17/2014 EXAM: CT HEAD EXAM DATE: 10/17/2014 06:10 AM. CLINICAL HISTORY: Head injury. COMPARISON: 10/16/2014. TECHNIQUE: Multiaxial CT images were obtained from the foramen mag num to the vertex. IV contrast: None. Reformats: Coronal. FINDINGS: Again demonstrated is a right-sided craniectomy involving of the entire right frontal parietal skull . There is ext ra-axial hyper and hypoechoic fluid on the right . Right-sided cerebral edema is present wit h brain extending outside of its typical cavity . There is some loss of ugarte-white different iation in the right posterior inferior parietal region similar to the prior examination. A s mall amount of hemorrhage in the right posterior fossa could be subarachnoid or intraparench ymal. Leftward midline shift is 7 mm compared to 7 mm on the prior examination. Air and hemo rrhage is seen in the right scalp at the surgical site. There is also some low-density fluid outside of the brain cavity that may be CSF. The thickness is similar to the prior examinat ion at 1 cm. Mild subcutaneous emphysema in the right scalp has mildly decreased. Surgical s kin diamond are present. Mass effect is seen on the right lateral ventricle. The basal ciste rns are patent. 10/17/[address] compared to 10/16/2014. RADIA Electronically signed by Jakob Calzada MD on Oct 17 2014 7:38AM Referring Provider Line: [phone] ID: [id number] Ct Head Without Contrast 10/16/[address] without contrast. INDICATION: Decompressive craniectomy for head traum a Technique: head CT without contrast. COMPARISON: 10/14/2014 FINDINGS: Large decompressi ve craniectomy overlies the frontal, parietal and temporal lobes. The surgical drain overlyi ng the craniectomy site has been removed. There is a hypodense subpleural collection overlyi ng the right frontal convexity now measuring a to 11 mm in thickness, previously on the orde r of 6 mm. There is midline shift to the left by 6 mm, not changed significantly when remeas ured. Stable small, mixed density subdural collection over the right tentorium. Basal cister ns remain visible. No hydrocephalus. 10/16/2014 Right-sided drain has been removed. No evidence of interval hemorrhage or wors ening mass effect. Hypodense subdural collection over the right frontal convexity has increa sed in size. Serial followup suggested. No other significant interval change. Electronical ly signed by Jimbo Mckeon MD on Oct 16 2014 6:08AM Referring Provider Line: [phone] E ID: [id number] PROBLEM LIST ASSESSMENT & PLAN Principal Problem: Subdural hematoma, with 2cm midline shift;; post-traumatic; Traumatic brain injury, close d 10/11; s/p subdural craniotomy and evacuation by dr. Delgado. 10/14 extubated. 10/15 craniotomy drains removed. 10/16; transferred out of ICU. 10/22 dr. argueta consulted but deemed not a inpt rehab candidate. Still waiting for placement. Cont with physical therapy. Per CM note today : CM attempted to meet pt for d/c planning. CM could not arouse pt for d iscussion. CM routed updated medical notes to [facility] and [place]. PT recommending SNF. CM spoke w/ Tyler at [facility] and Mary Beth at [place], efaxed updated medical information, grace th are looking into the pt's case. RN reports pt has not had sitter and no behavioral proble ms. 2/3: Patient continues to do well. However he is a little bit more agitated today. Wanti ng to get out of bed. Sitter at bedside today. He is mentation however continues to be lab ile. Active Problems: Alcohol abuse 2/2 no signs of DTs. Cont to monitor. 2/3 no signs of withdrawal symptoms. Alcohol withdrawal; resolved. Debility, unspecified; cont with therapy. Hyposmolality and/or hyponatremia; mild and stable. HTN: BP relatively controlled. 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 Hospital records reviewed. Labs and radiologic studies and reports reviewed. Discussed find ings with participating physicians. Old records reviewed on EMR. Condition guarded and high risk for cardiopulmonary decompensation due to underlying condit ions Disposition: inpatient Code Status: Full Code Cecilio Bravo MD 10/23/2014 onversio n Transaction, Provider Unknown - 10/23/2014 4:34 PM PSTFormatting of this note might be di fferent from the original. Case Management by Yeimi Ruiz RN at 10/23/14 1634 Author: Yeimi Ruiz RN Service: (none) Author Type: Registered Nurse Filed: 10/23/14 1640 Date of Service: 10/23/14 1634 Status: Signed Highway Maintenance Supervisor: Yeimi Ruiz RN (Registered Nurse) CM received a call from Sherry who is the Community Health Nurse from the [facility]. ([phone] and fax [phone]) She states that she can assist with disc harge plans for patient. Patient was "kicked out" of his house and is homeless.. His Mothe r Teressa Fortune has communicated with Sherry since his admission. Patient continues to have a sitter. onver alem Transaction, Provider Unknown - 10/23/2014 11:40 AM PST Therapy Progress Note by Amara Duran PT at 10/23/14 1140 Author: Amara Duran PT Service: (none) Author Type: Physical Therapist Filed: 10/23/14 1405 Date of Service: 10/23/14 1140 Status: Signed Highway Maintenance Supervisor: Amara Duran PT (Physical Therapist) 10/23/14 1140 PT Last Visit PT Received On 10/23/14 Reason for Treatment Brain injury (right SDH) Requires PT Follow Up Yes Follow up PT Only? Yes Focus for Next Treatment Formal Balance Assessment;Bed Mobility Technique;Transfer Techniqu e Assistance Required 2 person Database Coordinator Needed No Precautions Other Precautions kye for OOB activities Other Comments Comments Pt. supine in bed upon arrival. Pt. agreeable for PT. Sitter present in room. Pt. slow to respond to questions and needed several prompts to keep his eyes open during therapy . Pt. able to bridge in bed with some assist for stabilizing le's. Supine to sit with 2 max assist. Once at bedside, working with pt. to maintain midline. Verbal and tactile cues neede d. Then progressed to mild perturbations at trunk. Practicing sit <> stand up to walker with 2 max assist. Support at right knee to help prevent buckling. Pt. required max cues for pos ture/keeping eyes open. No automatic balance reactions noted when standing. Weight bearing p rimarily through L LE. Practiced sit <> stand x 4 reps.. Transferred to chair using STEDY a s pt. was not able to take steps. Balance assist to trunk while on STEDY requires after PT. Cognition Orientation Level (oriented to person, did not remember surgery) Comments Pt. did not remember having surgery. slow to respond to questions. Very groggy. Bed Mobility Supine to Sit Max assist (BLEs OOB & trunk to upright);x 2 person Transfers Sit to/from Stand Maximal assist (to arise AND lower);x 2 person (up to walker) Bed to/from Chair (using STEDY) Mobility Weight Bearing Status WBAT RLE;WBAT LLE Ambulation Assistance Maximal assist;X2;AIRAM (Pt. not weight shifting to allow steps/no advancement) Static Sitting Balance Static Sitting-Balance Support Right upper extremity support;Left upper extremity support;F eet supported Static Sitting-Level of Assistance Moderate assist;Verbal instruction;Doesn't attain midlin e;Doesn't maintain midline (tactile cues) Static Sitting-Comment/Duration up to 15 minutes working at bedside Static Standing Balance Static Standing-Balance Support Right upper extremity support;Left upper extremity support; Trunk support (fww) Static Standing-Level of Assistance Doesn't maintain midline;Doesn't attain midline;Leans R ;Maximal assist Therapeutic Exercises Therapeutic Exercises AAROM Right AAROM Right Hip;Knee;Ankle Activity Tolerance Activity Tolerance Patient limited by fatigue Nurse Made Aware MICHELL Banks aware of PT visit Safety Devices Safety Devices in Place (call lucero in place, sitter present, chair alarm on) Type of Devices 1:1 sitter maintained Plan Treatment/Interventions Continue per Primary PT POC Progress Slow progress, decreased activity tolerance Recommendation Recommendations SNF Barriers to Discharge Physical Deficits Impacting Functional [facility] Recommendation Comments Pt. continues to require maximal assist for all mobility needs. Sebastian l need further skilled PT to address deficits prior to return home. onver alem Willard, Provider Unknown - 10/23/2014 11:29 AM PST Therapy Progress Note by ИВАН Poole at 10/23/14 1129 Author: ИВАН Poole Service: (none) Author Type: Massage Therapist Filed: 10/23/14 1130 Date of Service: 10/23/14 112 Status: Signed Highway Maintenance Supervisor: ИВАН Poole (Massage Therapist) 10/23/14 1100 Massage Therapy Interventions Locations Back;Neck;Shoulder Massage Therapy Technique Effleurage;Petrissage;Eritrean massage;Trigger point Response to treatment Decreased pain;Decreased muscle tension Goals Short Term Goal #1 Decreased muscle tension;Decreased pain;Increase comfort;Increased relax ation Camille Montaño MD - 10/22/2014 6:11 PM PSTFormatting of this note might be different from marylou cook original. Progress Notes by Cecilio Bravo MD at 10/22/141810 Author: Cecilio Bravo MD Service: Hospitalist Author Type: Physician Filed: 10/22/141825 Date of Service: 10/22/141810 Status: Signed Highway Maintenance Supervisor: Cecilio Bravo MD (Physician) [facility] Service: Hospitalist Progress Note Hospital Day: LOS: 11 days Post-Op Day: 11 Days Post-Op SUBJECTIVE Patient Summary: Per ICU note: The patient is a 53 y.o. male with significant past medical history of chronic alcohol abus e and multiple falls. Per ED report from [facility]: he was drinking earlier today at home and fell twice. He went to bed and then he was noted to be having what they thought was seizure activity and th robbie could not wake him and called EMS. He was taken to the ED at [facility] in [place] a nd then transferred to the ED here for emergent neurosurgical evaluation for large acute rig ht SDH with 2 cm midline shift. He was admitted to the ICU post-op craniectomy and yosef drains x2. by Dr. Delgado still intu bated and comatose off sedation with intermittent decerebrate posturing but has cough and co rneal reflexes. ICU Time Line: 10/11/2014: Decompressive Craniectomy on right for SDH GCS 4 10/12/2014: Patients neurologic examination continues to improve woke up and was able to fol low commands by wiggling the tip of his right thumb and left foot. 10/13/2014: Patients neurologic exam continues to improve. Had an episode of flash pulmonary edema with HTN and tachycardia. Diuresed. 10/14/2014: Extubated. 10/15/2014: Swallow eval and PT to advance today. Kye ordered for protection of craniecto my-orthotics consult 10/16/2014: CT unchanged right temporal hygroma, MLS 6 mm. per previous note: Patient Summary: Patient is a 53 year old male with past medical history of Chronic Alcohol Abuse, Dependenc e and multiple falls who was transferred from [facility] due to a fall, seizures . CT scan of the head there showed a large acute right SDH with 2 cm midline shift. Neurosur jarad services was involved and dr. Delgado performed Craniectomy and post procedure he was kept in ICU for close monitoring. Repeat CT scan showed Right-sided craniectomy involving of the entire right frontal parietal skull and right-sided cerebral edema was present with bra in extending outside of its typical cavity which was unchanged from previous study. PT also followed and Dr. Argueta consulted who initially thought he would be a good candidate to IPR bu t due to his weakness and persistent fatigue symptoms recommended SNF placement to improve s trength and mobility. natural resources professor are working on finding placement which may take few days, however if accepted then can be discharged for rehabilitation Events Overnight: 2/2 pt still somewhat confused, thought he was in [place]. He knew that he fell, but didn 't realize that he had hematoma and evacuation. ROS: 12 point ROS reviewed and negative other than above. Scheduled Medications docusate sodium 100 mg Oral BID Or docusate 100 mg Per OG Tube BID folic acid 1 mg Oral Daily heparin (porcine) 5000 unit/0.5mL 5,000 Units Subcutaneous 3 times per day levETIRAcetam 1,000 mg Oral BID QUEtiapine 25 mg Oral Nightly thiamine 100 mg Oral Daily Continuous Infusions sodium chloride (IV) 75 mL/hr at 10/21/14 0605 PRN Medications hydrALAZINE, labetalol, lip moisturizer, morphine OR morphine OR morphine, nystatin , nystatin, ondansetron OR ondansetron, oxyCODONE-acetaminophen OR oxyCODONE-acetami nophen, polyethylene glycol OBJECTIVE Vital Signs: BP 104/67 | Pulse 71 | Temp(Src) 98 F (36.7 C) (Oral) | Resp 16 | Ht 1.778 m (5' 10 ") | Wt 84.9 kg (187 lb 2.7 oz) | BMI 26.86 kg/m2 | SpO2 96% Physical Exam: General Appearance: No apparent distress. Conversive and appropriate to place and person. HEENT: not Normocephalic, traumatic; midline cranial incision with diamond, incision clean, dry, and intact. Indentation of right parietal/frontal head is noted. pupils EOMI, PERRLA. Nose: no septal deviation or discharge. Ears: normal size, location, and contour. Throat dr y and without exudates. NECK: is supple, full ROM, nontender. LUNGS: clear to auscultation bilaterally with no wheezing, No rales or rhonchi audible. HEART: S1S2, Regular rate and rhythm without murmurs, gallops or rubs. ABDOMEN: Bowel sound is normoactive, abdomen is soft, non-tender non-distended ,no mass pal pable. EXTREMITIES:No lower extermity edema, No clubbing or cyanosis bilaterally. Good hand grasp bilaterally, and adequate fine motor functions. NEURO: Cranial Nerves 2-12 appears intact, Gait not tested, Muscle strength good bilaterall y, Sensation grossly intact. PSYCH: Alert, awake and Oriented to self only. SKIN: No bruises, rashes, lesions, or ulcers. DATA Recent Labs Lab 10/22/1432310/20/14 0335 10/18/14 0413 WBC 7.9 9.4 9.3 RBC 3.62* 3.83* 3.77* HCT 36.2* 38.0* 37.3* MCV 99.9 99.2 98.9 MCH 33.2 33.3 32.3 MCHC 33.2 33.6 32.6 RDW 54.7* 56.9* 58.6* PLT 286 327 274 MPV 8.2 8.3 8.1 DIFFTYPE AUTOMATED AUTOMATED AUTOMATED Recent Labs Lab 10/22/14 03210/21/14 0400 10/20/14 0335 K 3.5 3.6 3.8 CL 100 100 98* CO2 26 27 26 ANIONGAP 11 10 11 GLUF 112* 119* 121* BUN 8 11 10 CREATININE 0.65* 0.64* 0.60* BCR 12 17 17 CA 9.2 9.4 9.3 EGFR >60 >60 >60 BMP: Recent Labs Lab 10/22/14 0324 10/21/14 0400 10/20/14 0335 NA 133* 133* 131* K 3.5 3.6 3.8 CL 100 100 98* CO2 26 27 26 ANIONGAP 11 10 11 GLUF 112* 119* 121* BUN 8 11 10 CREATININE 0.65* 0.64* 0.60* BCR 12 17 17 CA 9.2 9.4 9.3 EGFR >60 >60 >60 Recent Labs Lab 10/22/14 0324 10/20/14 0335 10/18/14 0413 MG 1.9 2.1 2.4 No results for input(s): APTT, INR, PTT in the last 168 hours. No results for input(s): CKTOTAL, TROPONINI, TROPONINT, CKMBINDEX in the last [address] Head Without Contrast 10/17/2014 EXAM: CT HEAD EXAM DATE: 10/17/2014 06:10 AM. CLINICAL HISTORY: Head injury. COMPARISON: 10/16/2014. TECHNIQUE: Multiaxial CT images were obtained from the foramen mag num to the vertex. IV contrast: None. Reformats: Coronal. FINDINGS: Again demonstrated is a right-sided craniectomy involving of the entire right frontal parietal skull . There is ext ra-axial hyper and hypoechoic fluid on the right . Right-sided cerebral edema is present wit h brain extending outside of its typical cavity . There is some loss of ugarte-white different iation in the right posterior inferior parietal region similar to the prior examination. A s mall amount of hemorrhage in the right posterior fossa could be subarachnoid or intraparench ymal. Leftward midline shift is 7 mm compared to 7 mm on the prior examination. Air and hemo rrhage is seen in the right scalp at the surgical site. There is also some low-density fluid outside of the brain cavity that may be CSF. The thickness is similar to the prior examinat ion at 1 cm. Mild subcutaneous emphysema in the right scalp has mildly decreased. Surgical s kin diamond are present. Mass effect is seen on the right lateral ventricle. The basal ciste rns are patent. 10/17/[address] compared to 10/16/2014. RADIA Electronically signed by Jakob Calzada MD on Oct 17 2014 7:38AM Referring Provider Line: [phone] ID: [id number] Ct Head Without Contrast 10/16/[address] without contrast. INDICATION: Decompressive craniectomy for head traum a Technique: head CT without contrast. COMPARISON: 10/14/2014 FINDINGS: Large decompressi ve craniectomy overlies the frontal, parietal and temporal lobes. The surgical drain overlyi ng the craniectomy site has been removed. There is a hypodense subpleural collection overlyi ng the right frontal convexity now measuring a to 11 mm in thickness, previously on the orde r of 6 mm. There is midline shift to the left by 6 mm, not changed significantly when remeas ured. Stable small, mixed density subdural collection over the right tentorium. Basal cister ns remain visible. No hydrocephalus. 10/16/2014 Right-sided drain has been removed. No evidence of interval hemorrhage or wors ening mass effect. Hypodense subdural collection over the right frontal convexity has increa sed in size. Serial followup suggested. No other significant interval change. Electronical ly signed by Jimbo Mckeon MD on Oct 16 2014 6:08AM Referring Provider Line: [phone] E ID: [id number] PROBLEM LIST ASSESSMENT & PLAN Principal Problem: Subdural hematoma, with 2cm midline shift;; post-traumatic; Traumatic brain injury, close d 10/11; s/p subdural craniotomy and evacuation by dr. Delgado. 10/14 extubated. 10/15 craniotomy drains removed. 10/16; transferred out of ICU. 10/22 dr. argueta consulted but deemed not a inpt rehab candidate. Still waiting for placement. Cont with physical therapy. Per CM note today : CM attempted to meet pt for d/c planning. CM could not arouse pt for d iscussion. CM routed updated medical notes to [facility] and [place]. PT recommending SNF. CM spoke w/ Tyler at [facility] and Mary Beth at [place], efaxed updated medical information, grace th are looking into the pt's case. RN reports pt has not had sitter and no behavioral proble ms. Active Problems: Alcohol abuse 2/2 no signs of DTs. Cont to monitor. Alcohol withdrawal; resolved. Debility, unspecified; cont with therapy. Hyposmolality and/or hyponatremia; mild and stable. HTN: BP relatively controlled. 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 Hospital records reviewed. Labs and radiologic studies and reports reviewed. Discussed find ings with participating physicians. Old records reviewed on EMR. Condition guarded and high risk for cardiopulmonary decompensation due to underlying condit ions Disposition: inpatient Code Status: Full Code Cecilio Bravo MD 10/22/2014 Lin Richardson MS CCC-INTELLIGENCE INTERN - 10/22/2014 3:22 PM PST Therapy Progress Note by Emilie Sutherland MS CCC-INTELLIGENCE INTERN at 10/22/14 1522 Author: Emilie Sutherland MS CCC-INTELLIGENCE INTERN Service: (none) Author Type: Speech Therapist Filed: 10/22/14 1522 Date of Service: 10/22/14 1522 Status: Signed Highway Maintenance Supervisor: Emilie Sutherland MS CCC-INTELLIGENCE INTERN (Speech Therapist) 10/22/14 5852 INTELLIGENCE INTERN Last Visit INTELLIGENCE INTERN Received On 10/22/14 Requires INTELLIGENCE INTERN Follow Up Unavailable (attempted pt just given pain meds, very tired) Attempted to do trials, however pt every difficulty to keep wake. onversion T ransaction, Provider Unknown - 10/22/2014 3:15 PM PSTFormatting of this note might be diffe rent from the original. Case Management by TABITHA Dejesus at 10/22/14 8202 Author: TABITHA Dejesus Service: (none) Author Type: Acds Block 1 Operator Filed: 10/22/14 1520 Date of Service: 10/22/145 Status: Addendum Highway Maintenance Supervisor: TABITHA Dejesus (Acds Block 1 Operator) Related Notes: Original Note by TABITHA Dejesus (Acds Block 1 Operator) filed at 10/22/14 4908 CM attempted to meet pt for d/c planning. CM could not arouse pt for discussion. CM route d updated medical notes to [facility]. PT recommending SNF. CM spoke w/ Tyler at [facility] and Mary Beth at [place], efaxed updated medical information, both are looking in to the pt's case. RN reports pt has not had sitter and no behavioral problems. TABITHA Dejesus onver alem Transaction, Provider Unknown - 10/22/2014 2:35 PM PST Progress Notes by Jennfier Alberts RD at 10/22/14 1435 Author: Jennifer Alberts RD Service: (none) Author Type: Registered Dietitian Filed: 10/22/14 1521 Date of Service: 10/22/14 1435 Status: Addendum Highway Maintenance Supervisor: Jennifer Alberts RD (Registered Dietitian) Related Notes: Original Note by Jennifer Alberts RD (Registered Dietitian) filed at 10/22/14 1513 Cosigner: Anna Venegas RD at 10/22/14 1522 Nutrition Follow-Up Moderate/high risk follow-up. Assessment: Pt asleep during assessment. Spoke with RNs to gather additional information. Wt history/weight change: 84.9 kg (down 4.8 kg since admit), indicating significant wt loss of 5.3% in 11 days. Nutritionally pertinent labs: Na 133 (L); slightly elevated blood glucose (112), no insulin ordered at this time; Cr .65 (L). Nutrition-focused physical findings: INTELLIGENCE INTERN following for dysphagia. Diet order/current intake: Pureed, nectar thick, house, no straws. Per RN, pt completed 1/2 bowl of cream of wheat this morning. Overall, pt has been completing about 50% of most meal s with 1:1 assist. Pt on NS @ 75 mL/hr. Continues to receive folic acid and thiamine supplem entation. Nutrition Diagnosis: Increased kcal/protein requirements related to catabolic illness and healing as evidenced b y TBI. Goal: Pt will continue to complete at least 50% of meals offered daily. Recommendations: 1. Continue diet per INTELLIGENCE INTERN. 2. Magic cups with meal trays. 3. Monitor pt's weight. 4. Offer high calorie foods on meal trays. Monitoring: Will follow up in 4 days per nutrition protocol. Jennifer Alberts, , qa internship, 10/22/14. onver alem Transaction, Provider Unknown - 10/22/2014 9:56 AM PST Therapy Progress Note by Pelon Rose LMP at 10/22/14 0956 Author: ИВАН Elaine Service: (none) Author Type: Massage Therapist Filed: 10/22/14955 Date of Service: 10/22/14955 Status: Signed Highway Maintenance Supervisor: ИВАН Elaine (Massage Therapist) 10/22/14955 MT Last Visit MT Received On 10/22/14 MT Therapy Visit Not available (pt resting) inebe Dorcas menendez PT - 10/22/2014 9:00 AM PSTFormatting of this note might be different from t regina original. Therapy Progress Note by Dorcas Holguin PT at 10/22/14 09 Author: Dorcas Holguin PT Service: (none) Author Type: Physical Therapist Filed: 10/22/14 1104 Date of Service: 10/22/14899 Status: Signed Highway Maintenance Supervisor: Dorcas Holguin PT (Physical Therapist) 10/22/14899 PT Last Visit PT Received On 10/22/14 Reason for Treatment (R SDH) Requires PT Follow Up Yes Follow up PT Only? Yes Focus for Next Treatment Formal Balance Assessment;Bed Mobility Technique;Transfer Techniqu e PT Eval/Reassessment Date 10/22/14 Assistance Required 2 person Database Coordinator Needed No Precautions Other Precautions helmet when upright Other Comments Comments Pt supine in bed and agreeable to PT. Pt able to answer some questions as well as follow some commands, pt requires maxA for bed mobility to sitting as well as transfers. Pt not able to sit would out assist, can move LLE on command but not right. Pt stands well xavier fidelina is unable to take steps without legs buckling. Pt Transfered to chair to allow nursing t o change bed. Once nursing complete Transfered pt back to bed using steady which was much sa raz since pt is able to stand fairly well. Pt ended session supine in bed, with bed alarm on . Cognition Overall Cognitive Status WFL Orientation Level Oriented Comments pt oriented to self also remembers RN and DIRECTOR ONLINE MARKETING;s name. Bed Mobility Rolling Moderate assist Supine to Sit Max assist (BLEs OOB & trunk to upright) Sit to Supine Max assist (BLEs into bed & trunk to lower);x 2 person Transfers Sit to/from Stand Moderate assist (to arise OR lower) Bed to/from Chair Maximal assist (to arise AND lower);x 2 person Stand Pivot Transfers Maximal assist (to arise AND lower);x 2 person Mobility Ambulation Assistance Maximal assist;X2 Maximal Ambulation Distance (feet) 2 Total Ambulation Distance (feet) 2 Distance limited by? Therapist/staff discretion;Patient's ability Pattern (pt can advance LLE however leg neal) Assistive Device (EXAMINING OFFICER on 2 therapists) Static Sitting Balance Static Sitting-Balance Support Right upper extremity support;Left upper extremity support Static Sitting-Level of Assistance Moderate assist Static Sitting-Comment/Duration 10' pt not able to sit with out assist. Seated Seated-Exercise Type Ankle pumps;Long arc quads (on LLE) Activity Tolerance Activity Tolerance Treatment limited secondary to medical complications Nurse Made Aware RN notified Safety Devices Safety Devices in Place (bed alarm on, call light in reach) Plan Treatment/Interventions Continue per Primary PT POC Progress Progressing toward goals PT Frequency 5-7x/wk;Once per day Care Duration (# of days) 7 # of days Recommendation Recommendations SNF Travon Orosco MD - 10/21/2014 8:46 AM PSTFormatting of this note might be different from the sherriea l. Progress Notes by Travon Micthell MD at 10/21/14 0846 Author: Travon Mitchell MD Service: Hospitalist Author Type: Physician Filed: 10/21/14 1411 Date of Service: 10/21/14845 Status: Addendum Highway Maintenance Supervisor: Travon Mitchell MD (Physician) Related Notes: Original Note by Travon Mitchell MD (Physician) filed at 10/21/14 14 07 [facility] Service: Hospitalist Progress Note Tony Fortune 53 y.o. [phone] male PER PT NONE Hospital Day: LOS: 10 days SUBJECTIVE Patient Summary: Patient is a 53 year old male with past medical history of Chronic Alcohol Abuse, Dependenc e and multiple falls who was transferred from [facility] due to a fall, seizures . CT scan of the head there showed a large acute right SDH with 2 cm midline shift. Neurosur jarad services was involved and dr. Delgado performed Craniectomy and post procedure he was kept in ICU for close monitoring. Repeat CT scan showed Right-sided craniectomy involving of the entire right frontal parietal skull and right-sided cerebral edema was present with bra in extending outside of its typical cavity which was unchanged from previous study. PT also followed and Dr. Argueta consulted who initially thought he would be a good candidate to IPR bu t due to his weakness and persistent fatigue symptoms recommended SNF placement to improve s trength and mobility. natural resources professor are working on finding placement which may take few days, however if accepted then can be discharged for rehabilitation. Events Overnight: Patient seen and examined. Overnight events noted. Patient reported feeling sleepy most of the time. He responded to some questions and reported to feeling tried and fatigued as well. Has mobility issues and PT services is following. As per staff no chest pains, shortness of breath, cough and no nausea or vomiting. No diarrhea or constipation reported. Appetite is low and needs assistance in feeding. Remained afebrile. Scheduled Medications docusate sodium 100 mg Oral BID Or docusate 100 mg Per OG Tube BID folic acid 1 mg Oral Daily heparin (porcine) 5000 unit/0.5mL 5,000 Units Subcutaneous 3 times per day levETIRAcetam 1,000 mg Oral BID QUEtiapine 25 mg Oral Nightly thiamine 100 mg Oral Daily Continuous Infusions sodium chloride (IV) 75 mL/hr at 10/21/14 0605 PRN Medications hydrALAZINE, labetalol, lip moisturizer, morphine OR morphine OR morphine, nystatin , nystatin, ondansetron OR ondansetron, oxyCODONE-acetaminophen OR oxyCODONE-acetami nophen, polyethylene glycol Allergy: Allergies Allergen Reactions Penicillins Other (See Comments) Unknown OBJECTIVE Vital Signs: BP 116/70 | Pulse 94 | Temp(Src) 98 F (36.7 C) (Oral) | Resp 17 | Ht 1.778 m (5' 10 ") | Wt 98.1 kg (216 lb 4.3 oz) | BMI 31.03 kg/m2 | SpO2 95% I&O Detailed Table: I/O last 3 completed shifts: In: - Out: 100 [Urine:100] Weight change: Hemodynamics Last 24hrs: Examination: Constitutional: Patient was sleeping but arousable. He appears frail but not in acute distr ess. HEENT: Head: S/P Craniotomy. [place] at midline and temporo parietoccipital area of the scalp wit hout bone. Nose: Nose normal. Mouth/Throat: Oropharynx is clear and moist. Eyes: No conjunctiva injection. EOM Intact. PERRLA. No scleral icterus. Neck: Neck supple. No JVD present. No tracheal deviation present. No thyromegaly Cardiovascular: RRR, no murmur heard and no friction rub. Pulmonary/Chest: Symmetrical chest expansion, no stridor, no wheezes and no rales. Abdominal: Soft, BS present, no distension, no ascites. There is no rebound tenderness and no guarding. Musculoskeletal: Moves limbs. No joint tenderness. No pedal edema. Neurological: + Weakness, deficits more pronounced on R side. Power 3-/5 RUE and RLE, 3+/5 Left side. Skin: Skin is warm and dry. No erythema. Incision site at scalp and diamond clean with no d ischarges. Psychiatric: + Mild Confusion off and on, Dysphoric affect, Judgment is limited but improv ing. LABS: Recent Results (from the past 24 hour(s)) BASIC METABOLIC PANEL Collection Time 10/21/14 4:00 AM Result Value Ref Range SODIUM 133 (*) 135 - 143 mmol/L POTASSIUM 3.6 3.5 - 4.9 mmol/L CHLORIDE 100 99 - 109 mmol/L CO2 27 23 - 32 mmol/L ANION GAP AGAP 10 5 - 20 mmol/L GLUCOSE 119 (*) 65 - 99 mg/dL BUN 11 8 - 25 mg/dL CREATININE 0.64 (*) 0.70 - 1.30 mg/dL BUN/CREAT 17 CALCIUM 9.4 8.5 - 10.5 mg/dL EGFR >60 >60 mL/min/1.73m2 CT HEAD IMPRESSION: Right-sided drain has been removed. No evidence of interval hemorrhage or worsening mass ef fect. Hypodense subdural collection over the right frontal convexity has increased in size. Serial followup suggested. No other significant interval change. Electronically signed by Jimbo Mckeon MD on Oct 16 2014 6:08AM PROBLEM LIST Principal Problem: Traumatic brain injury, closed Active Problems: Subdural hematoma, post-traumatic Alcohol withdrawal Alcohol abuse Debility, unspecified Difficulty in walking Hyposmolality and/or hyponatremia ASSESSMENT & PLAN Traumatic Brain Injury / Subdural Hematoma: CT showed a large right sided subdural hematom a with midline shift. S/P Craniectomy by Dr. Delgado and followed by Dr. Nj from [facility]. He is making slow progress and needs rehabilitation for further recovery. Wi ll continue oral Keppra BID for seizure prophylaxis and monitor closely. Hyponatremia: Mild, possibly due to low oral intake, will continue low dose IV fluids and follow BMP. Alcohol Withdrawal: Stable, no signs of withdrawals or DT's. Will monitor and resume CIWA protocol as indicated. Continue Thiamine and Folic acid and monitor. Delirium / AMS: Multifactorial, hypoactive with no behavioral issues. This is slowly impro ving, continue supportive care and monitor closely. Alcohol Abuse / Dependence: Will need counseling and rehabilitation when stable and improv ed. Debility / Difficulty in Walking: Secondary to TBI, SDH, Surgery and severe deconditioning . PT is following and Dr. Argueta recommended SNF placement for rehabilitation. DVT prophylaxis with SCD's and Heparin. Discharge plans to a SNF for rehabilitation. trauma manager is working on placement which cou ld be challenging due to [place] Medicaid. His insurance may contribute in the delayed disch arge due to placement and or acceptance at a facility. Spent more than 30 minutes reviewing patient's labs, diagnostic tests, examination of patie nt, discussing plan of care with staff, also helped in coordination of care and answered sta ff's questions. Travon Mitchell MD 10/21/2014 Shannon Read OTR/Ibis - 10/20/2014 3:33 PM PST . Therapy Progress Note by ANIA Narvaez/Ibis at 10/20/14 1533 Author: ANIA Narvaez/Ibis Service: (none) Author Type: Occupational Therapist Filed: 10/20/14 1534 Date of Service: 10/20/14 1533 Status: Signed Highway Maintenance Supervisor: ANIA Narvaez/Ibis (Occupational Therapist) 10/20/14 1500 OT Last Visit OT Received On 10/20/14 Reason for Treatment Brain injury Requires OT Follow Up On hold Plan Requires OT Follow Up On hold RN states that pt is not at his best right now. Suggests to return tomorrow. Travon Orosco MD - 10/20/2014 9:23 AM PST . Progress Notes by Travon Mitchell MD at 10/20/14922 Author: Travon Mitchell MD Service: Hospitalist Author Type: Physician Filed: 10/20/14 1506 Date of Service: 10/20/14922 Status: Signed Highway Maintenance Supervisor: Travon Mitchell MD (Physician) [facility] Service: Hospitalist Progress Note Tony Fortune 53 y.o. [id number] male PER PT NONE Hospital Day: LOS: 9 days SUBJECTIVE Patient Summary: Patient is a 53 year old male with past medical history of Chronic Alcohol Abuse, Dependenc e and multiple falls who was transferred from [facility] due to a fall, seizures . CT scan of the head there showed a large acute right SDH with 2 cm midline shift. Neurosur jarad services was involved and dr. Delgado performed Craniectomy and post procedure he was kept in ICU for close monitoring. Repeat CT scan showed Right-sided craniectomy involving of the entire right frontal parietal skull and right-sided cerebral edema was present with bra in extending outside of its typical cavity which was unchanged from previous study. PT also followed and Dr. Argueta consulted who initially thought he would be a good candidate to IPR bu t he remains very weak and fatigued and then recommended SNF placement to improve strength a nd mobility. Events Overnight: Patient seen and examined. Overnight events noted. Patient was seen sleeping but arousable and responded to questions. He was tried and fatigued. Has mobility issues and PT services i s following. As per staff no chest pains, shortness of breath, cough and no nausea or vomiti ng. No diarrhea or constipation reported. Appetite is low and needs assistance in feeding. R emained afebrile. Scheduled Medications docusate sodium 100 mg Oral BID Or docusate 100 mg Per OG Tube BID folic acid 1 mg Oral Daily heparin (porcine) 5000 unit/0.5mL 5,000 Units Subcutaneous 3 times per day levETIRAcetam 1,000 mg Oral BID QUEtiapine 25 mg Oral Nightly thiamine 100 mg Oral Daily Continuous Infusions sodium chloride (IV) 30 mL/hr at 10/17/14 0846 PRN Medications hydrALAZINE, labetalol, lip moisturizer, morphine OR morphine OR morphine, nystatin , nystatin, ondansetron OR ondansetron, oxyCODONE-acetaminophen OR oxyCODONE-acetami nophen, polyethylene glycol Allergy: Allergies Allergen Reactions Penicillins Other (See Comments) Unknown OBJECTIVE Vital Signs: BP 136/85 | Pulse 111 | Temp(Src) 98.3 F (36.8 C) (Oral) | Resp 18 | Ht 1.778 m (5' 10") | Wt 98.1 kg (216 lb 4.3 oz) | BMI 31.03 kg/m2 | SpO2 96% I&O Detailed Table: I/O last 3 completed shifts: In: 570 [P.O.:570] Out: - Weight change: Hemodynamics Last 24hrs: Examination: Constitutional: Patient was sleeping this AM but easily arousable. He appears frail but not in acute distress. HEENT: Head: S/P Craniotomy. [place] at midline and temporo parietoccipital area of the scalp. Nose: Nose normal. Mouth/Throat: Oropharynx is clear and moist. Eyes: No conjunctiva injection. EOM Intact. PERRLA. No scleral icterus. Neck: Neck supple. No JVD present. No tracheal deviation present. No thyromegaly Cardiovascular: RRR, no murmur heard and no friction rub. Pulmonary/Chest: Symmetrical chest expansion, no stridor, no wheezes and no rales. Abdominal: Soft, BS present, no distension, no ascites. There is no rebound tenderness and no guarding. Musculoskeletal: Moves limbs. No joint tenderness. No pedal edema. Neurological: + Weakness, moves all limbs, deficits more pronounced on R side. Power 3-/5 RUE and RLE, 3+/5 Left side. Skin: Skin is warm and dry. No erythema. Incision site at scalp and diamond clean with no d ischarges. Psychiatric: + Mild Confusion, Dysphoric affect, Judgment is limited but improving. LABS: Recent Results (from the past 24 hour(s)) CBC W/AUTO DIFF (REFLEX TO MANUAL) Collection Time 10/20/14 3:35 AM Result Value Ref Range WBC 9.4 3.8 - 11.0 K/uL RBC 3.83 (*) 4.20 - 5.70 M/uL HGB 12.8 (*) 13.2 - 17.0 g/dL HCT 38.0 (*) 39.0 - 50.0 % MCV 99.2 80.0 - 100.0 fl MCH 33.3 27.0 - 34.0 pg MCHC 33.6 32.0 - 35.5 g/dL RDW SD 56.9 (*) 37 - 53 fl PLT 327 150 - 400 K/uL MPV 8.3 DIFF TYPE AUTOMATED NEUTROPHILS 72.8 LYMPHOCYTES 16.9 MONOCYTES 7.6 EOSINOPHILS 2.0 BASOPHILS 0.7 NEUTROPHILS ABS 6.9 1.9 - 7.4 K/uL LYMPHOCYTES ABS 1.6 1.0 - 3.9 K/uL MONOCYTES ABS 0.7 0 - 0.8 K/uL EOSINOPHILS ABS 0.2 0 - 0.5 K/uL BASOPHILS ABS 0.1 0 - 0.1 K/uL BASIC METABOLIC PANEL Collection Time 10/20/14 3:35 AM Result Value Ref Range SODIUM 131 (*) 135 - 143 mmol/L POTASSIUM 3.8 3.5 - 4.9 mmol/L CHLORIDE 98 (*) 99 - 109 mmol/L CO2 26 23 - 32 mmol/L ANION GAP AGAP 11 5 - 20 mmol/L GLUCOSE 121 (*) 65 - 99 mg/dL BUN 10 8 - 25 mg/dL CREATININE 0.60 (*) 0.70 - 1.30 mg/dL BUN/CREAT 17 CALCIUM 9.3 8.5 - 10.5 mg/dL EGFR >60 >60 mL/min/1.73m2 MAGNESIUM Collection Time 10/20/14 3:35 AM Result Value Ref Range MAGNESIUM 2.1 1.7 - 2.4 mg/dL CT HEAD IMPRESSION: Right-sided drain has been removed. No evidence of interval hemorrhage or worsening mass ef fect. Hypodense subdural collection over the right frontal convexity has increased in size. Serial followup suggested. No other significant interval change. Electronically signed by Jimbo Mckeon MD on Oct 16 2014 6:08AM PROBLEM LIST Principal Problem: Traumatic brain injury, closed Active Problems: Subdural hematoma, post-traumatic Alcohol withdrawal Alcohol abuse Debility, unspecified Difficulty in walking Hyposmolality and/or hyponatremia ASSESSMENT & PLAN Traumatic Brain Injury / Subdural Hematoma: CT showed a large right sided subdural hematom a with midline shift. S/P Craniectomy by Dr. Delgado and now followed by Dr. Nj from [facility] ro[facility] services. He is making slow progress and would need aggressive rehabilitation for recovery. Will continue oral Keppra BID for seizure prophylaxis and monitor closely. Hyponatremia: Mild, possibly due to low oral intake, will monitor BMP and if remains low t hen start low dose IV fluids and follow closely. Alcohol Withdrawal: Stable, no signs of withdrawals or DT's. Continue CIWA protocol, John ine and Folic acid and monitor. Delirium / AMS: Multifactorial, hypoactive with no behavioral issues. This is slowly impro ving, continue supportive care and monitor closely. Alcohol Abuse / Dependence: Will need counseling and rehabilitation when stable and improv ed. Debility / Difficulty in Walking: Secondary to TBI, SDH, Surgery and severe deconditioning . PT is following and Dr. Argueta recommended SNF placement for rehabilitation. DVT prophylaxis with SCD's and Heparin. Discharge plans to a SNF for rehab. trauma manager is working on placement which could be [employer]ley [employer] due to [place] Medicaid insurance and may delay the discharge till accepted at a [facility]. Spent more than 30 minutes reviewing patient's labs, diagnostic tests, examination of patie nt, discussing plan of care with staff, also helped in coordination of care and answered sta ff's questions. Travon Mitchell MD 10/20/2014 onversion Trans action, Provider Unknown - 10/19/2014 3:01 PM PST Therapy Progress Note by CADEN Mcgowan at 10/19/14 1501 Author: CADEN Mcgowan Service: (none) Author Type: Occupational Therapist Filed: 10/19/14 1521 Date of Service: 10/19/14 150 Status: Signed Highway Maintenance Supervisor: CADEN Mcgowan (Occupational Therapist) 10/19/14 1501 Precautions Other Precautions helmet on when OOB Home Environment Bathroom Shower/Tub Tub/shower unit;Shower unit with threshold (uses walk in shower) Bathroom Toilet Standard Bathroom Equipment Grab bars in shower/bath Additional Comments Refer to PT note for PLOF Prior Function Level of [place] Independent with functional mobility;Independent with ADLs;Independe nt with IADLs Lives With Sibling(s) (stated living with brother) ADL Assistance Independent Home ADL's Independent ADL Eating Assistance Total (requiring 1:1 for feeding, per DIRECTOR ONLINE MARKETING) Grooming Assistance Dependent (per DIRECTOR ONLINE MARKETING) Grooming impacted by Cognitive deficits;Ability to follow directions;Problem-solving;Endura nce Additional Comments Pt. awake upon OT arrival. During OT evaluation, pt. fell asleep and wa s unable to arouse. Pt. would benefit from further skilled OT services to cont. education/pr actice with simple ADLs. Pt. left seated in bed, call light within reach. Cognition Orientation Level AIRAM (lethargic) Comments very lethargic Sensation Light Touch (AIRAM) Hand Function Gross Grasp Impaired (pt. is right handed) Impaired Gross Grasp (not completing functional tasks at this time 1:1) Assessment Assessment Decreased ADL status;Decreased UE strength;Decreased cognition;Decreased Safe ju dgement during ADL;Decreased endurance;Decreased fine motor control;Decreased self-care gore s;Decreased high-level ADLs Prognosis Good Goal Formulation Patient;Family Further Evaluation Goals Patient Will Tolerate Further ADL Treatment (Pt. will complete cognitive assessment when ap propriate) ADL Goals Pt Will Perform Eating With mod assist;Supine/sitting up in bed Pt Will Perform Grooming With mod assist;With max assist Arm Goals Pt Will Perform AROM B UE;1 set;5 reps Plan Treatment Interventions ADL retraining;Functional transfer training;Functional dynamic acti vities;AROM;Therapeutic exercises;Endurance training;Cognitive reorientation;Patient/Family training;Equipment eval/education;Compensatory technique education OT Frequency QD;5x/wk Requires OT Follow Up Awaiting tx order Recommendation Recommendation SNF (with 24/hr supervision care for ADLs/IADLs) Equipment Recommended Shower chair with back;Pm Head Cook;HHSH;Grab bars withing home;Bedside co mmode Education Completed: Education Topic: OT role, ADLs Completed with: Patient Completed by: Verbal Education, Demonstration Response to Education: Stated Understanding, Returned Demonstration, Reinforcement Harish koehler for Education Understanding Occupational Therapy Plan: Cont. Acute skilled OT services: Q/5x/wk The following recommendations are made for d/c planning at this time: 24-hr supervision care for ADLs/IADLs SNF Barriers to d/c at this time include: lethargic Equipment needs shower chair, hand held shower head, grab bars, bedside commode Cognitive deficits impacting functional independence-very lethargic--would benefit from further cognitive assessment. Physical deficits impacting functional independence Self-care deficits impacting functional independence JAVIER Mcgowan, FEDERICO 10/19/2014 ovarr Jessica camacho MA, CCC-INTELLIGENCE INTERN - 10/19/2014 2:12 PM PSTFormatting of this note might be differ ent from the original. Therapy Progress Note by Jessica Headley MA CCC-INTELLIGENCE INTERN at 10/19/14 1412 Author: Jessica Headley MA CCC-INTELLIGENCE INTERN Service: (none) Author Type: Speech and Language Pathologist Filed: 10/19/14 1413 Date of Service: 10/19/141411 Status: Signed Highway Maintenance Supervisor: Jessica Headley MA CCC-INTELLIGENCE INTERN (Speech and Language Pathologist) 10/19/14 135 Swallowing Assessment Eval Swallowing Treatment Yes Initial Swallow Assessment Behavior/Cognition Lethargic Consistencies Consistencies Assessed Yes Thin Presentation Spoon;Cup Oral Phase Thin Anterior Spillage Left Pharyngeal Phase Delayed swallow initiated;Spontaneous double swallow;Cough - delayed Puree Presentation Spoon Oral Phase Increased oral holding time Pharyngeal Delayed Swallow;No overt signs or symptoms of aspiration Recommendations Liquids Consistency Recommendations Roebling thick Diet Consistency Recommendation Pureed (1-2 snacks per tray) Recommendations Dysphagia treatment;Feeding assist;Set up with meals;1:1 supervision Risk for Aspiration Moderate Compensatory Swallowing Strategies Upright as possible for all oral intake;Remain upright f or 30 minutes after meals;Small bites/sips;Eat/feed slowly;Slow rate presentation;Swallow 2 times per bite/sip Recommended Form of Meds Meds floated in puree Summary Pt coughing with thin trials today. Pt tolerating puree trials with no overt s/sx o f asp. Did not attempt DMA trials due to pt c/o pain. RN notified. RN brought pain medicatio n. Pt w/no overt s/sx of asp while trialing pill in puree trial. Staff Notified MD Plan of Care Treatment Plan Continue with current plan Follow up treatments Assessment for upgrade;Patient/Family education;Diet tolerance monitor ing Debora Suarez PA - 10/19/2014 1:58 PM PSTFormatting of this note might be different from the or iginal. Progress Notes by Debora Ott PA-C at 10/19/14 4672 Author: Debora Ott PA-C Service: Neurosurgery Author Type: Physician Cross Country Coach - Ce rtified Filed: 10/19/14 0339 Date of Service: 10/19/141357 Status: Signed Highway Maintenance Supervisor: Debora Ott PA-C (Physician Cross Country Coach - Certified) [facility] Service: Neurosurgery Progress Note Hospital Day: LOS: 8 days Post-Op Day: 8 Days Post-Op SUBJECTIVE Patient Summary: s/p craniectomy for large right SDH Events Overnight: Complaining of pain. IPR denied because he lives in [place], antoinette guardado on placement in [place]. Helmet arrived. Scheduled Medications docusate sodium 100 mg Oral BID Or docusate 100 mg Per OG Tube BID folic acid 1 mg Oral Daily heparin (porcine) 5000 unit/0.5mL 5,000 Units Subcutaneous 3 times per day levETIRAcetam 1,000 mg Oral BID QUEtiapine 25 mg Oral Nightly thiamine 100 mg Oral Daily Continuous Infusions sodium chloride (IV) 30 mL/hr at 10/17/14 0846 PRN Medications hydrALAZINE, labetalol, lip moisturizer, morphine OR morphine OR morphine, nystatin , nystatin, ondansetron OR ondansetron, oxyCODONE-acetaminophen OR oxyCODONE-acetami nophen, polyethylene glycol OBJECTIVE Vital Signs: BP 118/80 | Pulse 87 | Temp(Src) 97.9 F (36.6 C) (Oral) | Resp 16 | Ht 1.778 m (5' 10") | Wt 98.1 kg (216 lb 4.3 oz) | BMI 31.03 kg/m2 | SpO2 98% Temp: [97.9 F (36.6 C)-98.5 F (36.9 C)] 97.9 F (36.6 C) (10/19 110) BP: (118-139)/(67-84) 118/80 mmHg (10/19 110) Heart Rate: [78-95] 87 (10/19 1105) Resp: [16-24] 16 (10/19 1105) SpO2: [98 %-100 %] 98 % (10/19 1105) I&O Last 3 Shifts: 10/17 1899 - 10/19 0559 In: 1915 [P.O.:380; I.V.:1335] Out: - Gen: More awake and talkative than yesterday. Alert, oriented to person, place Follows simple commands Incision C/D/I Dense right hemiparesis PROBLEM LIST Principal Problem: Traumatic brain injury, closed Active Problems: Alcohol abuse Subdural hematoma, post-traumatic Alcohol withdrawal Debility, unspecified Difficulty in walking ASSESSMENT & PLAN S/p craniectomy for large right SDH - Continue supportive care - Added percocet q6 for oral pain control management - [place] need to come out end of next week - FU in neurosurgery clinic in 4 weeks Code Status: Full Code Debora Ott PA-C 10/19/2014 onversio n Transaction, Provider Unknown - 10/19/2014 1:46 PM PSTFormatting of this note might be di fferent from the original. Case Management by TABITHA Armstrong at 10/19/14 5133 Author: TABITHA Armstrong Service: (none) Author Type: Boat Oar Maker Filed: 10/19/14 1418 Date of Service: 10/19/14 1346 Status: Addendum Highway Maintenance Supervisor: TABITHA Armstrong (Boat Oar Maker) Related Notes: Original Note by TABITHA Armstrong (Boat Oar Maker) filed at 10/19/14 1347 CM faxed a referral to [facility] in [place] and updated info to [facility] in [place]. faxed updated info to the [facility] [place]. Jem Flores NONPROFIT FUNDRAISER Marco , Travon Tobar MD - 10/19/2014 1:40 PM PSTFormatting of this note might be different from t regina original. Progress Notes by Travon Mitchlel MD at 10/19/14 1340 Author: Travon Mitchell MD Service: Hospitalist Author Type: Physician Filed: 10/19/14 1348 Date of Service: 10/19/14 1340 Status: Signed Highway Maintenance Supervisor: Travon Mitchell MD (Physician) [facility] Service: Hospitalist Progress Note Tony Fortune 53 y.o. [id number] male PER PT NONE Hospital Day: LOS: 8 days SUBJECTIVE Patient Summary: Patient is a 53 year old male with past medical history of Chronic Alcohol Abuse, Dependenc e and multiple falls who was transferred from [facility] due to a fall, seizures . CT scan of the head there showed a large acute right SDH with 2 cm midline shift. Neurosur jarad services was involved and dr. Delgado performed Craniectomy and post procedure he was kept in ICU for close monitoring. Repeat CT scan showed Right-sided craniectomy involving of the entire right frontal parietal skull and right-sided cerebral edema was present with bra in extending outside of its typical cavity which was unchanged from previous study. PT also followed and Dr. Argueta consulted who initially thought he would be a good candidate to IPR bu t he remains very weak and fatigued and then recommended SNF placement to improve strength a nd mobility. Events Overnight: Patient seen and examined. Overnight events noted. Patient was seen tried and fatigued. He was awake and Responded to questions. He needed assistance in almost every activities inclu ding feeding and mobility. PT services is following. He denied chest pains, shortness of br eath, cough and no nausea or vomiting but reported generalized aches and pain. No diarrhea o r constipation reported. Appetite is low. Remained afebrile. Scheduled Medications docusate sodium 100 mg Oral BID Or docusate 100 mg Per OG Tube BID folic acid 1 mg Oral Daily heparin (porcine) 5000 unit/0.5mL 5,000 Units Subcutaneous 3 times per day levETIRAcetam 1,000 mg Oral BID QUEtiapine 25 mg Oral Nightly thiamine 100 mg Oral Daily Continuous Infusions sodium chloride (IV) 30 mL/hr at 10/17/14 0846 PRN Medications hydrALAZINE, labetalol, lip moisturizer, morphine OR morphine OR morphine, nystatin , nystatin, ondansetron OR ondansetron, oxyCODONE-acetaminophen OR oxyCODONE-acetami nophen, polyethylene glycol Allergy: Allergies Allergen Reactions Penicillins Other (See Comments) Unknown OBJECTIVE Vital Signs: BP 118/80 | Pulse 87 | Temp(Src) 97.9 F (36.6 C) (Oral) | Resp 16 | Ht 1.778 m (5' 10") | Wt 98.1 kg (216 lb 4.3 oz) | BMI 31.03 kg/m2 | SpO2 98% I&O Detailed Table: I/O last 3 completed shifts: In: 1914 [P.O.:380; I.V.:1335; IV Piggyback:200] Out: - Weight change: Hemodynamics Last 24hrs: Examination: Constitutional: Patient is drowsy but easily arousable, oriented x 1. Appears frail but not in acute distress. HEENT: Head: S/P Craniotomy. [place] at midline and temporo parietoccipital area of the scalp. Nose: Nose normal. Mouth/Throat: Oropharynx is clear and moist. Eyes: No conjunctiva injection. EOM Intact. PERRLA. No scleral icterus. Neck: Neck supple. No JVD present. No tracheal deviation present. No thyromegaly Cardiovascular: RRR, no murmur heard and no friction rub. Pulmonary/Chest: Symmetrical chest expansion, no stridor, no wheezes and no rales. Abdominal: Soft, BS present, no distension, no ascites. There is no rebound tenderness and no guarding. Musculoskeletal: Moves limbs. No joint tenderness. No pedal edema. Neurological: + Weakness, deficits more pronounced on R side. Power 3-/5 RUE and RLE, 3+/5 Left side. Skin: Skin is warm and dry. No erythema.The Incision site at scalp and diamond clean with n o discharges. Psychiatric: + Mild Confusion, Dysphoric affect, Judgment is limited but improving. LABS: No results found for this or any previous visit (from the past 24 hour(s)). CBC, CMP from previous days reviewed. CT HEAD IMPRESSION: Right-sided drain has been removed. No evidence of interval hemorrhage or worsening mass ef fect. Hypodense subdural collection over the right frontal convexity has increased in size. Serial followup suggested. No other significant interval change. Electronically signed by Jimbo Mckeon MD on Oct 16 2014 6:08AM PROBLEM LIST Principal Problem: Traumatic brain injury, closed Active Problems: Subdural hematoma, post-traumatic Alcohol withdrawal Alcohol abuse Debility, unspecified Difficulty in walking ASSESSMENT & PLAN Traumatic Brain Injury / Subdural Hematoma: CT showed a large right sided subdural hematom a with midline shift. S/P Craniectomy by Dr. Delgado and now followed by Dr. Nj from [facility] rosurgery services. He is making slow progress and would need aggressive rehabilitation for recovery. Will continue oral Keppra BID for seizure prophylaxis and monitor closely. Alcohol Withdrawal: Stable and improved with no signs of withdrawals or DT's as mentioned presviously. Continue CIWA protocol, Thiamine and Folic acid and monitor. Delirium / AMS: Multifactorial, hypoactive with no behavioral issues and improving. This w as due to TBI, SDH and Alcohol withdrawal, continue supportive care and monitor closely. Alcohol Abuse / Dependence: Will need counseling and rehabilitation when stable and improve d. Debility / Difficulty in Walking: Secondary to TBI, SDH, Surgery and severe deconditioning . PT is following and Dr. Argueta is now recommending SNF placement for rehabilitation. DVT prophylaxis with SCD's and Heparin. Discharge plans when stable to a SNF for rehab. trauma manager is working on placement which could be a challenge due to his insurance of [place] Medicaid. This may also delay his discha rge plans. Spent more than 30 minutes reviewing patient's labs, diagnostic tests, examination of patie nt, discussing plan of care with staff, also helped in coordination of care and answered sta ff's questions. Travon Mitchell MD 10/19/2014 Stella, Thalia Baumann PT - 10/19/2014 11:55 AM PST Therapy Progress Note by Thalia Simmons PT at 10/19/14 1157 Author: Thalia Simmons PT Service: (none) Author Type: Physical Therapist Filed: 10/19/14 1312 Date of Service: 10/19/14 1153 Status: Signed Highway Maintenance Supervisor: Thalia Simmons PT (Physical Therapist) 10/19/14 1151 PT Last Visit PT Received On 10/19/14 Reason for Treatment Other (comment);Brain injury (R SDH) Requires PT Follow Up Yes Follow up PT Only? Yes Assistance Required 2 person Precautions Other Precautions wear helmet for OOB activity Other Comments Comments Pt very lethargic. Very limited use of R side, able to perform some ther ex on LL E while sitting. Pt continues to require significant assist for mobility and sitting balanc e Cognition Overall Cognitive Status WFL Orientation Level Oriented Comments very lethargic Bed Mobility Rolling Moderate assist Supine to Sit Max assist (BLEs OOB & trunk to upright);x 2 person Transfers Sit to/from Stand Maximal assist (to arise AND lower);x 2 person (x 2 trials, the ntransferred to chair) Bed to/from Chair Maximal assist (to arise AND lower);x 2 person Stand Pivot Transfers Maximal assist (to arise AND lower);x 2 person Mobility Ambulation Assistance Not performed;Safety concerns Static Sitting Balance Static Sitting-Level of Assistance Moderate assist;Maximal assist Static Sitting-Comment/Duration Worked on seated exercises sitting EOB, pt required PT assi st for movement of RLE, unable to move on his own; performed limited range movements against gravity on LLE Static Standing Balance Static Standing-Balance Support Trunk support;Right upper extremity support;Left upper extr emity support Static Standing-Level of Assistance Maximal assist;Doesn't maintain midline Seated Seated-Exercise Type Long arc quads;Knee flex;Heel raises;Toe raises (5-10 reps each) Seated-Exercise Comments Assisted pt to move RLE, pt able to perform partial ROM on LLE Activity Tolerance Activity Tolerance Treatment limited secondary to medical complications Nurse Made Aware RN Moraima aware Safety Devices Safety Devices in Place (call light in lap, curtain open, chair reclined) Plan Treatment/Interventions Continue per Primary PT POC Progress Slow progress, decreased activity tolerance;Slow progress, medical status limitati ons Recommendation Recommendations SNF VS: 119/85 88 98% ra onversion Transact ion, Provider Unknown - 10/19/2014 10:56 AM PSTFormatting of this note might be different fr om the original. Progress Notes by Crissy Maldonado at 10/19/14 105 Author: Crissy Maldonado Service: (none) Author Type: Blair Filed: 10/19/141056 Date of Service: 10/19/141055 Status: Signed Highway Maintenance Supervisor: Crissy Maldonado I attempted to meet with the patient to discuss who his PCP is, however he was in patient c are. Crissy Maldonado-GPS Artificial Stone Setter Wing Lewis Perry MD - 10/19/2014 9:01 AM PSTFormatting of this note might be different from the origi nal. Progress Notes by Wing Lewis Argueta MD at 10/19/14900 Author: Wing Lewis Argueta MD Service: (none) Author Type: Physician Filed: 10/19/14901 Date of Service: 10/19/14900 Status: Signed Highway Maintenance Supervisor: Wing Lewis Argueta MD (Physician) Patient seen face-face for followup His helmet is in He is participating with therapy Patient is still very slow cognitively Only got one word out of him in 5 minutes of questioning He reported of living with 'Khanh' when asked He is still at max assist for all activities at this point BP 127/83 | Pulse 82 | Temp(Src) 98.3 F (36.8 C) (Oral) | Resp 20 | Ht 1.778 m (5' 10") | Wt 98.1 kg (216 lb 4.3 oz) | BMI 31.03 kg/m2 | SpO2 98% Lung: Clear Cardiac: Regular Abdo: Soft Head incision intact A/P s/p craniotomy Cont acute therapy. Will need to iron out his disposition plans Will not tolerate 3-hrs of IPR care at this point Wing Lewis Argueta MD 10/19/2014 9:01 AM Admission on 10/11/2014 No results displayed because visit has over 200 results. onversion Transaction, Provider Unknown - 10/19/2014 4:46 AM PSTFormatting of this note might be different from th e original. Progress Notes by Rosa Lassiter RN at 10/19/14445 Author: Rosa Lassiter RN Service: (none) Author Type: Registered Nurse Filed: 10/19/148 Date of Service: 10/19/14445 Status: Signed Highway Maintenance Supervisor: Rosa Lassiter RN (Registered Nurse) Patient transported to room 438 without incident. Report called to Soni who denies questi ons or concerns and will assume all patient care. Debora Rust PA - 10/18/2014 2:32 PM PSTFormatting of this note might be different from the or iginal. Progress Notes by Debora Ott PA-C at 10/18/14 1432 Author: Debora Ott PA-C Service: Neurosurgery Author Type: Physician Cross Country Coach - Ce rtified Filed: 10/18/14 1435 Date of Service: 10/18/14 1432 Status: Signed Highway Maintenance Supervisor: Debora Ott PA-C (Physician Cross Country Coach - Certified) [facility] Service: Neurosurgery Progress Note Hospital Day: LOS: 7 days Post-Op Day: 7 Days Post-Op SUBJECTIVE Patient Summary: s/p craniectomy for large right SDH Events Overnight: IPR consult- would likely benefit after helmet received. Scheduled Medications docusate sodium 100 mg Oral BID Or docusate 100 mg Per OG Tube BID folic acid (FOLVITE) IVPB 1 mg Intravenous Daily heparin (porcine) 5000 unit/0.5mL 5,000 Units Subcutaneous 3 times per day levETIRAcetam 1,000 mg Intravenous Q12H QUEtiapine 25 mg Oral Nightly thiamine (VITAMIN B1) IVPB 100 mg Intravenous Q24H Continuous Infusions sodium chloride (IV) 30 mL/hr at 10/17/14 0846 PRN Medications acetaminophen, acetaminophen OR acetaminophen, hydrALAZINE, labetalol, lip moisturizer, morphine OR morphine OR morphine, nystatin, nystatin, ondansetron OR ondansetro n, polyethylene glycol OBJECTIVE Vital Signs: BP 126/83 | Pulse 95 | Temp(Src) 98.7 F (37.1 C) (Oral) | Resp 21 | Ht 1.778 m (5' 10") | Wt 98.1 kg (216 lb 4.3 oz) | BMI 31.03 kg/m2 | SpO2 77% Temp: [97.7 F (36.5 C)-98.7 F (37.1 C)] 98.7 F (37.1 C) (10/18 1158) BP: (109-138)/(72-92) 126/83 mmHg (10/18 1200) Heart Rate: [86-106] 95 (10/18 1200) Resp: [16-28] 21 (10/18 1200) SpO2: [77 %-100 %] 77 % (10/18 1200) I&O Last 3 Shifts: 10/16 1900 - 10/18 0659 In: 1532 [P.O.:100; I.V.:1282] Out: - Gen: Awake, oriented to name, follows simple commands Dense right hemiparesis Incision C/D/I PROBLEM LIST Principal Problem: Traumatic brain injury, closed Active Problems: Alcohol abuse Subdural hematoma, post-traumatic Alcohol withdrawal Debility, unspecified Difficulty in walking ASSESSMENT & PLAN S/p craniectomy for large right SDH Continue supportive care Code Status: Full Code Debora Ott PA-C 10/18/2014 onversio n Transaction, Provider Unknown - 10/18/2014 11:50 AM PSTFormatting of this note might be di fferent from the original. Progress Notes by Maye Saleem RD, CD at 10/18/14 1158 Author: Maye Saleem RD, CD Service: (none) Author Type: Registered Dietitian Filed: 10/18/14 0255 Date of Service: 10/18/14 1150 Status: Signed Highway Maintenance Supervisor: Maye Saleem RD, CD (Registered Dietitian) Nutrition Follow-Up High-risk follow-up. Assessment: Has been very lethargic. Continues to have right-sided hemiparesis. Nutritionally pertinent labs: Electrolytes, BUN, and Cr are WNL. BG has been variable in th e 100s, no insulin ordered at this time. Nutrition-focused physical findings: Skin is intact. INTELLIGENCE INTERN continues to follow due to dysphag ia. Diet order/current intake: Puree snacks, 1-2 items per meal tray TID plus nectar thick liqu ids by spoon only. Per RN, pt had Uzbek toast and yogurt this morning and finished 95%. On IV fluids of NS at 30 mL/hr. Continues to receive folic acid and thiamine supplementatio n. Nutrition Diagnosis: Increased kcal/protein requirements related to catabolic illness and healing as evidenced b y TBI. Intervention: Continue diet per INTELLIGENCE INTERN recommendations. 1:1 feeds with all meals. Magic Cups to be sent with meal trays. Will monitor wt trend and f/u to provide further nutrition recs based on clinical course. Goal: PO intake will be adequate to meet pt's estimated nutritional requirements. Recommendations: 1) Continue diet per INTELLIGENCE INTERN. 2) Magic Cups with meal trays. Monitoring: Will follow up in 4 days or as indicated. Maye Saleem RD, CD, [facility] 10/18/2014 onver alem Transaction, Provider Unknown - 10/18/2014 11:07 AM PST Therapy Progress Note by Flaquito Platt PT at 10/18/14 1107 Author: Flaquito Platt PT Service: (none) Author Type: Physical Therapist Filed: 10/18/14 8002 Date of Service: 10/18/14 110 Status: Signed Highway Maintenance Supervisor: Flaquito Platt PT (Physical Therapist) 10/18/14 1107 PT Last Visit PT Received On 10/18/14 Reason for Treatment Other (comment) Requires PT Follow Up Yes Follow up PT Only? Yes Assistance Required 2 person Precautions Other Precautions Pt now currently has his ortho helmet Other Comments Comments Pt supine in bed upon PT arrival; very lethargic but did verbalize that he was agr eeable to participate with PT. Pt now has his ortho helmet and is able to safely participate with OOB activites. Pt assisted with 2x max A to sitting on the EOB where he was able to to lerate the position for several minutes without any complaints of pain, dizziness, nausea. P t attempted to complete seated ther ex and was assisted into working on his sitting balance (currently requiring at least Mod A x 2 to maintain due to very weak postural and trunk musc les). Pt completed 3x STS transfers with 2x max A (ARABELLA handhold support and using gait belt, was able to help with initiating) with PT blocking the R knee to prevent buckling. Pt able to tolerate standing for approx 30 seconds to 1 minute each with max A to maintain position and not effectively putting any weight through the R LE. Pt assisted into chair in room and completed/participated with exercises for the R LE. Pts head/neck has a tendency to rest tow ards the L side, assisted with keeping the neck in midline by using a towel roll to assist w ith supporting the neck in a neutral position. Pt sitting w/ RN at the end of the session as she was assisting him with eating. Pt vitals after activity and sitting in chair: HR 92, BP 119/83. Cognition Overall Cognitive Status WFL Orientation Level Oriented Comments Significantly improved alertness and cognition once sitting on EOB and again in ch air with RN Bed Mobility Rolling Maximal assist;x 2 person Supine to Sit Max assist (BLEs OOB & trunk to upright);x 2 person Transfers Sit to/from Stand Maximal assist (to arise AND lower);x 2 person Bed to/from Chair Maximal assist (to arise AND lower);x 2 person Stand Pivot Transfers Maximal assist (to arise AND lower);x 2 person Mobility Ambulation Assistance Safety concerns Static Sitting Balance Static Sitting-Balance Support Left upper extremity support;Feet supported Static Sitting-Level of Assistance Doesn't maintain midline;Moderate assist Static Sitting-Comment/Duration Pt sitting on EOB with LEs on the floor and assisting with his L UE; pt demonstrates very poor trunk control and has a tendency to forward bend at his trunk (doesn't improve much with verbal/tactile instruction at this time). Significant impro vement in alertness being able to sit on the EOB for several minutes with 2x assist from PT to maintain position safely. Pt completed minimal seated ther ex sitting on the EOB for the L LE, very minimal R LE trace contractions for all motions distal to the hip. Pt jf braun met throughout session. Static Standing Balance Static Standing-Balance Support Trunk support Static Standing-Level of Assistance Maximal assist;Doesn't maintain midline Static Standing-Comment/Duration Max A x 2 for standing, pt able to assist with WBing throu gh the L LE and following commands Seated Seated-Exercise Type Ankle pumps;Seated marching;Long arc quads Seated-Exercise Comments Completed some exercise on EOB prior to initiating functional mobi lity to the chair. Pt continues to have very minimal activation of the R LE, but was more wi lling to participate and attempt to initiate movement. Activity Tolerance Activity Tolerance Treatment limited secondary to medical complications Nurse Made Aware RN aware and present throughout sesion Safety Devices Safety Devices in Place Yes Type of Devices (Sitting in chair in room with RN present assisting feeding) Restraints Initially in Place No Plan Treatment/Interventions Continue per Primary PT POC Progress Progressing toward goals Recommendation Recommendations SNF Recommendation Comments At this time, the pt has significant mobility limitations secondary to the extreme weakness of his R side and his overall lethargy. Pt likely could benefit [facility] SNF at this time to focus on improving his deficits to improve overall function and mobili ty. Pt likely would have difficult tolerating 3 hours of IPR therapy services each day due t o his overwhelming fatigue. onver alem Willard, Provider Unknown - 10/18/2014 9:13 AM PST Therapy Progress Note by DAYANARA Ross-INTELLIGENCE INTERN at 10/18/14912 Author: Mere Hardy MA CFY-INTELLIGENCE INTERN Service: (none) Author Type: Speech and Language Patholo gist Filed: 10/18/14912 Date of Service: 10/18/14912 Status: Signed Highway Maintenance Supervisor: DAYANARA Ross-INTELLIGENCE INTERN (Speech and Language Pathologist) 10/18/14844 Swallowing Assessment Eval Swallowing Treatment Yes Initial Swallow Assessment Respiratory Status Room air Behavior/Cognition Requires cueing;Doesn't follow directions;Lethargic Dentition Adequate Vision Impaired for self-feeding Patient Positioning Upright in bed Volitional Cough Strong Consistencies Consistencies Assessed Yes Ice Chips Presentation Spoon Oral Phase Increased holding time Pharyngeal Phase No overt signs or symptoms of aspirations;Delayed swallow initiation Roebling Presentation Cup Oral WFL;Increased Anterior to Posterior Transit Pharyngeal Phase Delayed swallow initiated;No overt signs or symptoms of aspiration;Decreas ed laryngeal elevation upon palpation Dysphagia Mechanically Altered Presentation Spoon Oral Phase Prolonged mastication;Increased holding time Pharyngeal Phase Cough - Delayed (cueing needed to swallow) Recommendations Liquids Consistency Recommendations Roebling thick Diet Consistency Recommendation Pureed;Other (comment) (1-2 puree snack 3x daily) Recommendations Dysphagia treatment;1:1 supervision;Feeding assist Risk for Aspiration Moderate Compensatory Swallowing Strategies Upright as possible for all oral intake;Remain upright f or 30 minutes after meals;Slow rate presentation;Small bites/sips;Eat/feed slowly;Check for pocketing Recommended Form of Meds Meds floated in puree;Meds crushed in puree Summary Pt appeared very lethargic and fatiqued. RN reports pt ate approximately 95% of simone akfast puree snack. Trials were limited as pt was unable to sustain alertness during swallow treatment session. Pt required cueing to masticate and swallow dysphagia mechanical diet te xtures, and demo'd delayed cough. Pt not appropriate to ungrade until alertness and strength increase. ST to follow to assess for upgrade as indicated. Staff Notified RN Plan of Care Treatment Plan Continue with current plan Follow up treatments Diet tolerance monitoring;Patient/Family education;Assessment for upgr khadijah Dysphagia Goals Assisted Goals Safe/efficient oral intake Pt will have safe/efficient oral intake Roebling thick liquids Pt will advanced diet in 3 days;Goal progressing Short Term Goals Tolerate diet Pt will tolerate diet upgrade trials With 1:1 supervision;Goal progressing Pt will tolerate diet Puree;with 1:1 supervision;With feeding assist;Goal progressing Mere Hardy MA CFCecily-INTELLIGENCE INTERN 10/18/2014 Travon Lara MD - 10/18/2014 8:36 AM PSTFormatting of this note might be different from lissett tapia original. Progress Notes by Travon Mitchell MD at 10/18/14 0854 Author: Travon Mitchell MD Service: Hospitalist Author Type: Physician Filed: 10/18/14 7768 Date of Service: 01/29/15 0836 Status: Signed Highway Maintenance Supervisor: Travon Mitchell MD (Physician) [facility] Service: Hospitalist Progress Note Tony Fortune 53 y.o. [id number] male PER PT NONE Hospital Day: LOS: 7 days SUBJECTIVE Patient Summary: Patient is a 53 year old male with past medical history of Chronic Alcohol Abuse, Dependenc e and multiple falls who was transferred from [facility] due to a fall, seizures . CT scan of the head there showed a large acute right SDH with 2 cm midline shift. Neurosur jarad services was involved and dr. Delgado performed Craniectomy and post procedure he was kept in ICU for close monitoring. Repeat CT scan showed Right-sided craniectomy involving of the entire right frontal parietal skull and right-sided cerebral edema was present with bra in extending outside of its typical cavity which was unchanged from previous study. PT is saad levine and Dr. Argueta was also consulted who thinks he is a great candidate for IPR to improv e his strength and mobility. Events Overnight: Patient seen and examined. Overnight events noted. Patient was seen awake but again very ti red and weak in his responses. Staff reported he did well with PT services today. He sat on the chair for few hours and also work in strengths. There was no chest pains, shortness of b reath, cough and no nausea or vomiting. No diarrhea or constipation reported. Appetite is lo w. Remained afebrile. Scheduled Medications docusate sodium 100 mg Oral BID Or docusate 100 mg Per OG Tube BID folic acid (FOLVITE) IVPB 1 mg Intravenous Daily heparin (porcine) 5000 unit/0.5mL 5,000 Units Subcutaneous 3 times per day levETIRAcetam 1,000 mg Intravenous Q12H QUEtiapine 25 mg Oral Nightly thiamine (VITAMIN B1) IVPB 100 mg Intravenous Q24H Continuous Infusions sodium chloride (IV) 30 mL/hr at 10/17/14 0846 PRN Medications acetaminophen, acetaminophen OR acetaminophen, hydrALAZINE, labetalol, lip moisturizer, morphine OR morphine OR morphine, nystatin, nystatin, ondansetron OR ondansetro n, polyethylene glycol Allergy: Allergies Allergen Reactions Penicillins Other (See Comments) Unknown OBJECTIVE Vital Signs: BP 127/82 | Pulse 86 | Temp(Src) 98.3 F (36.8 C) (Oral) | Resp 18 | Ht 1.778 m (5' 10") | Wt 98.1 kg (216 lb 4.3 oz) | BMI 31.03 kg/m2 | SpO2 98% I&O Detailed Table: I/O last 3 completed shifts: In: 1532 [P.O.:100; I.V.:1282; IV Piggyback:150] Out: - Weight change: Hemodynamics Last 24hrs: Examination: Constitutional: Patient is drowsy but easily arousable, oriented x 1. Appears frail but not in acute distress. HEENT: Head: S/P Craniotomy. Diamond noted at the midline and temporo parietoccipital area of the scalp. Nose: Nose normal. Mouth/Throat: Oropharynx is clear and moist. Eyes: No conjunctiva injection. EOM Intact. PERRLA. No scleral icterus. Neck: Neck supple. No JVD present. No tracheal deviation present. No thyromegaly Cardiovascular: Mildly tachycardiac, no murmur heard and no friction rub. Pulmonary/Chest: Symmetrical chest expansion, no stridor, no wheezes and no rales. Abdominal: Soft, BS present, no distension, no ascites. There is no rebound tenderness and no guarding. Musculoskeletal: Moves limbs. No joint tenderness. No pedal edema. Neurological: + Weakness and neurologic deficits more pronounced on right side. Power 3-/5 RUE and RLE, 3+/5 Left side. Skin: Skin is warm and dry. No erythema.The Incision site at scalp and diamond clean with n o discharges. Psychiatric: + Mild Confusion, Dysphoric affect, Judgment is limited but improving. LABS: Recent Results (from the past 24 hour(s)) CBC W/AUTO DIFF (REFLEX TO MANUAL) Collection Time 10/18/14 4:13 AM Result Value Ref Range WBC 9.3 3.8 - 11.0 K/uL RBC 3.77 (*) 4.20 - 5.70 M/uL HGB 12.2 (*) 13.2 - 17.0 g/dL HCT 37.3 (*) 39.0 - 50.0 % MCV 98.9 80.0 - 100.0 fl MCH 32.3 27.0 - 34.0 pg MCHC 32.6 32.0 - 35.5 g/dL RDW SD 58.6 (*) 37 - 53 fl PLT 274 150 - 400 K/uL MPV 8.1 DIFF TYPE AUTOMATED NEUTROPHILS 71.7 LYMPHOCYTES 15.9 MONOCYTES 9.3 EOSINOPHILS 2.4 BASOPHILS 0.7 NEUTROPHILS ABS 6.7 1.9 - 7.4 K/uL LYMPHOCYTES ABS 1.5 1.0 - 3.9 K/uL MONOCYTES ABS 0.9 (*) 0 - 0.8 K/uL EOSINOPHILS ABS 0.2 0 - 0.5 K/uL BASOPHILS ABS 0.1 0 - 0.1 K/uL BASIC METABOLIC PANEL Collection Time 10/18/14 4:13 AM Result Value Ref Range SODIUM 135 135 - 143 mmol/L POTASSIUM 4.0 3.5 - 4.9 mmol/L CHLORIDE 102 99 - 109 mmol/L CO2 27 23 - 32 mmol/L ANION GAP AGAP 10 5 - 20 mmol/L GLUCOSE 128 (*) 65 - 99 mg/dL BUN 9 8 - 25 mg/dL CREATININE 0.78 0.70 - 1.30 mg/dL BUN/CREAT 12 CALCIUM 8.4 (*) 8.5 - 10.5 mg/dL EGFR >60 >60 mL/min/1.73m2 MAGNESIUM Collection Time 10/18/14 4:13 AM Result Value Ref Range MAGNESIUM 2.4 1.7 - 2.4 mg/dL CBC, CMP from previous days reviewed. CT HEAD IMPRESSION: Right-sided drain has been removed. No evidence of interval hemorrhage or worsening mass ef fect. Hypodense subdural collection over the right frontal convexity has increased in size. Serial followup suggested. No other significant interval change. Electronically signed by Jimbo Mckeon MD on Oct 16 2014 6:08AM PROBLEM LIST Principal Problem: Traumatic brain injury, closed Active Problems: Subdural hematoma, post-traumatic Alcohol withdrawal Alcohol abuse Debility, unspecified Difficulty in walking ASSESSMENT & PLAN Traumatic Brain Injury / Subdural Hematoma: CT showed a large right sided subdural hematom a with midline shift. S/P Craniectomy by Dr. Delgado and current being follow by Dr. Nj from Neurosurgery services. He is stable and making progress. Consulted Dr. Argueta who thinks he is good candidate for IPR. Orthotics brought the helmet and PT is following. Will continu e Keppra BID for seizure prophylaxis and switch to oral supplements today if swallowing is s table. Alcohol Withdrawal: Stable and improving with no signs of withdrawals or DT's. Continue CI WA protocol and give benzodiazepines as indicated. Will change Thiamine and Folic acid to or al supplements and monitor. Delirium / AMS: Multifactorial, hypoactive with no behavioral issues and improving. This w as due to TBI, SDH and Alcohol withdrawal, continue supportive care and monitor closely. Alcohol Abuse / Dependence: Will need counseling and rehabilitation when stable and improve d. Debility / Difficulty in Walking: Secondary to TBI, SDH, Surgery and severe deconditioning . PT is following and Dr. Argueta would likely accept him for IPR in the next 24 to 48 hours. DVT prophylaxis with SCD's and Heparin. Discharge plans when stable to IPR probably tomorrow if accepted. Spent more than 3o minutes reviewing patient's labs, diagnostic tests, examination of patie nt, discussing plan of care with staff, also helped in coordination of care and answered sta ff's questions. Travon Mitchell MD 10/18/2014 onversion Trans action, Provider Unknown - 10/17/2014 10:48 AM PST Case Management by TABITHA Sidhu at 10/17/14 1048 Author: TABITHA Sidhu Service: (none) Author Type: Boat Oar Maker Filed: 10/17/14 1049 Date of Service: 10/17/14 1048 Status: Signed Highway Maintenance Supervisor: TABITHA Sidhu (Boat Oar Maker) Faxed updated clinical notes to [facility]. PT still not able to do a thorough eval as pt does not have his helmet yet. onver alem Transaction, Provider Unknown - 10/17/2014 10:38 AM PST Therapy Progress Note by Flaquito Platt PT at 10/17/14 1038 Author: Flaquito Platt PT Service: (none) Author Type: Physical Therapist Filed: 10/17/14 1611 Date of Service: 10/17/14 1038 Status: Signed Highway Maintenance Supervisor: Flaquito Platt, PT (Physical Therapist) 10/17/14 1038 PT Last Visit PT Received On 10/17/14 Reason for Treatment Other (comment) (TBI Right SDH ) Requires PT Follow Up Yes Follow up PT Only? Yes Assistance Required 2 person Precautions Other Precautions missing bone flap on R side; waiting on Ortho helmet for OOB activity Other Comments Comments Pt supine in bed upon Vitals at rest in supine w/ HOB elevated 45 deg: HR 97, BP 1 36/91. Pt brought to sitting positioning via the chair function of the bed (did well with to lerating the position but does appear to have significant lethargy and needed multiple verba l and tactile cues to remain attentive to task and awake). Still waiting on ortho helmet to attempt OOB activity, transfers, and upright positioning due to the pt having the removed sk ull flap. Pt continues to have significant weakness of the R LE, able to generate very trace muscle contractions but not enough strength to complete much of a functional range for the ankle/knee/hip. Pt did well with completing ther ex for the L LE to promote strengthening fo r improved mobility skills. Pt returned to supine with HOB elevated, RN aware. No new compla ints at the end of the session. Vitals after activity: HR 98, BP 132/96. Cognition Overall Cognitive Status WFL Orientation Level AIRAM (Pt appears oriented, but is very fatigued and needs promptin) Comments Very lethargic/depressed Mobility Ambulation Assistance Not performed;Safety concerns (Waiting for ortho helmet ) Static Sitting Balance Static Sitting-Balance Support Feet supported Static Sitting-Level of Assistance Attains midline;Doesn't attain midline;Doesn't maintain midline;Moderate assist;Verbal instruction Static Sitting-Comment/Duration pt sitting in chair positioning via the bed function; pt de monstrates poor trunk control at this time and near flaccidity of the R LE. Will continue to assess as the pt receives his ortho helmet to protect the skull Seated Seated-Exercise Type Seated marching;Ankle pumps;Long arc quads;ABduction;ADduction Seated-Exercise Comments Actively completed on the L LE; very minimal muscle activation (tr alexander) on the R (assisted with passive to active assisted range of motion) Activity Tolerance Activity Tolerance Patient limited by fatigue;Treatment limited secondary to medical compli cations Nurse Made Aware RN aware ([place]) Safety Devices Safety Devices in Place (supine in bed w/ HOB elevated 45 deg; RN present) Restraints Initially in Place No Plan Treatment/Interventions Continue per Primary PT POC Progress Slow progress, cognitive deficits;Slow progress, decreased activity tolerance Recommendation Recommendations Defer Recommendation Comments still awaiting ortho helmet prior to OOB mobility assessment Maria Teresa Valdes MA, CCC-INTELLIGENCE INTERN - 10/17/2014 8:36 AM PSTFormatting of this note might be differ ent from the original. Therapy Progress Note by Maria Teresa Lucas MS CFY-INTELLIGENCE INTERN at 10/17/14835 Author: MS KT Hayes-INTELLIGENCE INTERN Service: (none) Author Type: Speech Therapist Filed: 10/17/14835 Date of Service: 10/17/14835 Status: Signed Highway Maintenance Supervisor: MS KT Hayes-INTELLIGENCE INTERN (Speech and Language Pathologist) 10/17/14824 Swallowing Assessment Eval Swallowing Treatment Yes Consistencies Consistencies Assessed Yes Roebling Presentation Cup Oral WFL;Increased Anterior to Posterior Transit Pharyngeal Phase No overt signs or symptoms of aspiration;Delayed swallow initiated;Decreas ed laryngeal elevation upon palpation;Spontaneous double swallow Recommendations Liquids Consistency Recommendations Roebling thick;Other (comments) (by spoon) Diet Consistency Recommendation Pureed;Other (comment) (1 puree snack 3-4 times a day) Recommendations Dysphagia treatment;1:1 supervision;Feeding assist;Set up with meals;Check on patients frequently throught out meals Risk for Aspiration Moderate Compensatory Swallowing Strategies Upright as possible for all oral intake;Remain upright f or 30 minutes after meals;Alternate solids and liquids;Swallow 2 times per bite/sip;Small bi vipin/sips;Eat/feed slowly;Effortful swallow Recommended Form of Meds Meds floated in puree Summary Pt observed for limited nectar trials by cup. Pt had just previously finished break fast so trials were limited by fatigue. Pt tolerated 2 sips of nectar by cup without s/sx of aspiration. RN states pt has been doing well with diet and pt was observed to be tolerating breakfast before INTELLIGENCE INTERN walked in. Recommend cont. 1 puree snack 3-4 times a day with nectar t hick by spoon. Suspect pt will be ready for upgrade when not so fatigued. Pt still requires 1:1 supervision and feeding assist. ST to cont. to follow. Staff Notified RN Plan of Care Treatment Plan Continue with current plan Follow up treatments Diet tolerance monitoring;Patient/Family education;Assessment for upgr khadijah;Swallow strategies Dysphagia Goals Hair Baler Goals Safe/efficient oral intake;Advanced diet Pt will have safe/efficient oral intake Roebling thick liquids;Puree diet;Goal progressing Pt will advanced diet in 3 days;Goal progressing Short Term Goals Tolerate diet upgrade trials Pt will tolerate diet upgrade trials With 1:1 supervision;Goal progressing Ana Luisa , Travon Tobar MD - 10/17/2014 8:19 AM PSTFormatting of this note might be different from t regina original. Progress Notes by Travon Mitchell MD at 10/17/14818 Author: Travon Mitchell MD Service: Hospitalist Author Type: Physician Filed: 10/18/1418 Date of Service: 10/17/14818 Status: Signed Highway Maintenance Supervisor: Travon Mitchell MD (Physician) [facility] Service: Hospitalist Progress Note Tony Fortune 53 y.o. [id number] -1 male PER PT NONE Hospital Day: LOS: 7 days SUBJECTIVE Patient Summary: Patient is a 53 year old male with past medical history of Chronic Alcohol Abuse, Dependenc e and multiple falls who was transferred from [facility] due to a fall, seizures . CT scan of the head there showed a large acute right SDH with 2 cm midline shift. Neurosur jarad services was involved and dr. Delgado performed Craniectomy and post procedure he was kept in ICU for close monitoring. Repeat CT scan showed Right-sided craniectomy involving of the entire right frontal parietal skull and right-sided cerebral edema was present with bra in extending outside of its typical cavity which was unchanged from previous study. Events Overnight: Patient seen and examined. Overnight events noted. Patient was tired and sleepy, he was anihta ble to provide full ROS. Staff reported he was more awake and alert earlier in AM. Staff re ported he participated with PT services but did not walk. There was no chest pains, shortnes s of breath, cough and no nausea or vomiting. He has been tired, weak, less energetic and fa tigued. No diarrhea or constipation reported. Appetite is low. Remained afebrile. Scheduled Medications docusate sodium 100 mg Oral BID Or docusate 100 mg Per OG Tube BID folic acid (FOLVITE) IVPB 1 mg Intravenous Daily heparin (porcine) 5000 unit/0.5mL 5,000 Units Subcutaneous 3 times per day levETIRAcetam 1,000 mg Intravenous Q12H QUEtiapine 25 mg Oral Nightly thiamine (VITAMIN B1) IVPB 100 mg Intravenous Q24H Continuous Infusions sodium chloride (IV) 30 mL/hr at 10/17/14 0846 PRN Medications acetaminophen, acetaminophen OR acetaminophen, hydrALAZINE, labetalol, lip moisturizer, morphine OR morphine OR morphine, nystatin, nystatin, ondansetron OR ondansetro n, polyethylene glycol Allergy: Allergies Allergen Reactions Penicillins Other (See Comments) Unknown OBJECTIVE Vital Signs: BP 138/92 | Pulse 101 | Temp(Src) 97.9 F (36.6 C) (Oral) | Resp 25 | Ht 1.778 m (5' 10") | Wt 98.1 kg (216 lb 4.3 oz) | BMI 31.03 kg/m2 | SpO2 97% I&O Detailed Table: I/O last 3 completed shifts: In: 930 [P.O.:100; I.V.:530; IV Piggyback:300] Out: - Weight change: Hemodynamics Last 24hrs: Examination: Constitutional: Patient is drowsy but easily arousable, oriented x 1. Appears frail but wel l-developed and not in acute distress. HEENT: Head: S/P Craniotomy. Diamond noted at the midline and temporo parietoccipital area of the scalp. Nose: Nose normal. Mouth/Throat: Oropharynx is clear and moist. Eyes: No conjunctiva injection. EOM Intact. PERRLA. No scleral icterus. Neck: Neck supple. No JVD present. No tracheal deviation present. No thyromegaly Cardiovascular: Mildly tachycardiac, no murmur heard and no friction rub. Pulmonary/Chest: Symmetrical chest expansion, no stridor, no wheezes and no rales. Abdominal: Soft, BS present, no distension, no ascites. There is no rebound tenderness and no guarding. Musculoskeletal: Moves limbs. No joint tenderness. No pedal edema. Neurological: + Weakness and neurologic deficits more pronounced on right side. Power 3-/5 RUE and RLE, 3+/5 Left side. Skin: Skin is warm and dry. No erythema.The Incision site at scalp and diamond clean with n o discharges. Psychiatric: Confusion, Dysphoric affect, Judgment is limited. LABS: No results found for this or any previous visit (from the past 24 hour(s)). CBC, CMP from previous days reviewed. CT HEAD IMPRESSION: Right-sided drain has been removed. No evidence of interval hemorrhage or worsening mass ef fect. Hypodense subdural collection over the right frontal convexity has increased in size. Serial followup suggested. No other significant interval change. Electronically signed by Jimbo Mckeon MD on Oct 16 2014 6:08AM PROBLEM LIST Principal Problem: Traumatic brain injury, closed Active Problems: Subdural hematoma, post-traumatic Alcohol withdrawal Alcohol abuse Debility, unspecified Difficulty in walking ASSESSMENT & PLAN Traumatic Brain Injury / Subdural Hematoma: CT showed a large right sided subdural hematom a with midline shift. He is S/P Craniectomy by Dr. Delgado from Neurosurgery services. He i s stable and making slow progress. Dr. Nj is now following and recommended IPR consultatio n for rehabilitation. Orthotics was also consultated and helmet is arranged for protection during ambulation. Will continue IV Keppra BID for seizure prophylaxis and switch to oral molina pplements when swallowing is better. Alcohol Withdrawal: Stable and improving with no signs of withdrawals or DT's. Will monitor closely and continue CIWA protocol for now and give benzodiazepines as indicated. Also cont inue Thiamine and Folic acid as scheduled. Will switch to oral when stable. Delirium / AMS: Multifactorial, hypoactive with no behavioral issues. This was due to TBI, SDH and Alcohol withdrawal, will continue supportive care and monitor closely. Alcohol Abuse / Dependence: Will need counseling and rehabilitation when stable and improve d. Debility / Difficulty in Walking: Secondary to TBI, SDH, Surgery and severe deconditioning . PT is following, will also consult IPR for further opinion and possible IPR transfer when stable. DVT prophylaxis with SCD's and Heparin. Discharge plans when stable to either IPR vs SNF for rehabilitation. Spent more than 35 minutes reviewing patient's labs, diagnostic tests, examination of patie nt, discussing plan of care with staff, also helped in coordination of care and answered sta ff's questions. Travon Mitchell MD 10/18/2014 ang, Cyndy Saucedo MD - 10/17/2014 7:45 AM PST Progress Notes by Cyndy Nj MD at 10/17/14744 Author: Cyndy Nj MD Service: Neurosurgery Author Type: Physician Filed: 10/17/14747 Date of Service: 10/17/14744 Status: Signed Highway Maintenance Supervisor: Cyndy Nj MD (Physician) [facility] Service: Neurosurgery Progress Note Hospital Day: LOS: 6 days Post-Op Day: 6 Days Post-Op SUBJECTIVE Patient Summary: had CT this AM Events Overnight: none Scheduled Medications docusate sodium 100 mg Oral BID Or docusate 100 mg Per OG Tube BID folic acid (FOLVITE) IVPB 1 mg Intravenous Daily heparin (porcine) 5000 unit/0.5mL 5,000 Units Subcutaneous 3 times per day levETIRAcetam 1,000 mg Intravenous Q12H QUEtiapine 25 mg Oral Nightly thiamine (VITAMIN B1) IVPB 100 mg Intravenous Q24H Continuous Infusions sodium chloride (IV) 30 mL/hr at 10/16/14 1128 PRN Medications acetaminophen, acetaminophen OR acetaminophen, hydrALAZINE, labetalol, lip moisturizer, magnesium sulfate OR magnesium sulfate OR magnesium sulfate OR magnesium sulfat e, morphine OR morphine OR morphine, nystatin, nystatin, ondansetron OR ondanset gildardo, phosphorus OR sodium phosphate IVPB 20 mmol OR sodium phosphate IVPB 45 mmol, p olyethylene glycol potassium chloride OR potassium chloride OR potassium chloride, potassium chloride OR potassium chloride OR potassium chloride OBJECTIVE Vital Signs: BP 121/92 | Pulse 88 | Temp(Src) 99.2 F (37.3 C) (Axillary) | Resp 22 | Ht 1.778 m (5' 10") | Wt 98.1 kg (216 lb 4.3 oz) | BMI 31.03 kg/m2 | SpO2 96% Temp: [98.5 F (36.9 C)-99.4 F (37.4 C)] 99.2 F (37.3 C) (10/170) BP: (117-146)/(72-96) 121/92 mmHg (10/17 599) Heart Rate: [83-107] 88 (10/17 629) Resp: [15-36] 22 (10/17 629) SpO2: [91 %-99 %] 96 % (10/17 629) Awake, follows simple commands, nods Incision cdi DATA CT appears stable 10/17/14 PROBLEM LIST Principal Problem: Traumatic brain injury, closed Active Problems: Alcohol abuse Frequent falls Seizure Subdural hematoma, post-traumatic Alcohol withdrawal Cerebral edema ASSESSMENT & PLAN Floor status Likely would benefit from rehab consult Disposition: harper Code Status: Full Code Cyndy Nj MD 10/17/2014 onversio n Transaction, Provider Unknown - 10/16/2014 2:30 PM PSTFormatting of this note might be di fferent from the original. Therapy Progress Note by CADEN Mcgowan at 10/16/14 1430 Author: CADEN Mcgowan Service: (none) Author Type: Occupational Therapist Filed: 10/16/14 1456 Date of Service: 10/16/14 1430 Status: Signed Highway Maintenance Supervisor: CADEN Mcgowan (Occupational Therapist) 10/16/14 1430 OT Last Visit OT Received On 10/16/14 Requires OT Follow Up Unavailable (w/PT) Plan to follow up tomorrow for OT evaluation. JAVIER Mcgowan, CSRS 10/16/2014 Shania Howard ARNP - 10/16/2014 2:29 PM PSTFormatting of this note might be different f rom the original. Progress Notes by JENNIFER Small at 10/16/14 142 Author: JENNIFER Small Service: Conductor And Engineer Author Type: Conductor And Engineer Filed: 10/16/14 1506 Date of Service: 10/16/141428 Status: Signed Highway Maintenance Supervisor: JENNIFER Small (Nurse Practitioner) [facility] Service: Conductor And Engineer Progress Note Tony Fortune 53 y.o. Date of Admission: 10/11/2014 Treatment Team: Consulting Physician: Anila Delgado MD Admitting Provider: Harika Apodaca MD CHIEF COMPLAINT: severe TBI, large right SDH with massive midline shift, IC hypertension HISTORY OF PRESENT ILLNESS The patient is a 53 y.o. male with significant past medical history of chronic alcohol abus e and multiple falls. Per ED report from [facility]: he was drinking earlier today at home and fell twice. He went to bed and then he was noted to be having what they thought was seizure activity and th ey could not wake him and called EMS. He was taken to the ED at [facility] in [place] a nd then transferred to the ED here for emergent neurosurgical evaluation for large acute rig ht SDH with 2 cm midline shift. He was admitted to the ICU post-op craniectomy and yosef drains x2. by Dr. Delgado still intu bated and comatose off sedation with intermittent decerebrate posturing but has cough and co rneal reflexes. ICU Time Line: 10/11/2014: Decompressive Craniectomy on right for SDH GCS 4 10/12/2014: Patients neurologic examination continues to improve woke up and was able to f ollow commands by wiggling the tip of his right thumb and left foot. 10/13/2014: Patients neurologic exam continues to improve. Had an episode of flash pulmonar y edema with HTN and tachycardia. Diuresed. 10/14/2014: Extubated. 10/15/2014: Swallow eval and PT to advance today. Kye ordered for protection of craniect scarlett-orthotics consult 10/16/2014: CT unchanged right temporal hygroma, MLS 6 mm. Overnight Events: Patient slept well overnight. Cam+ overnight. PAST MEDICAL HISTORY Past Medical History Diagnosis Date Alcohol abuse Frequent falls Drug abuse PAST SURGICAL HISTORY Past Surgical History Procedure Laterality Date No past surgeries Craniotomy Right 10/11/2014 Procedure: CRANIOTOMY - FOR BLEED; Surgeon: Anila Delgado MD; Location: [facility] IN OR; Service: Neurosurgery; Laterality: Right; Craniectomy Right 10/11/2014 Procedure: CRANIECTOMY; Surgeon: Anila Delgado MD; Location: [facility] MAIN OR; Ser vice: Neurosurgery; Laterality: Right; ALLERGIES Allergies Allergen Reactions Penicillins Other (See Comments) Unknown MEDICATIONS PRIOR TO ADMISSION No prescriptions prior to admission SCHEDULED MEDICATIONS docusate sodium 100 mg Oral BID Or docusate 100 mg Per OG Tube BID folic acid (FOLVITE) IVPB 1 mg Intravenous Daily levETIRAcetam 1,000 mg Intravenous Q12H QUEtiapine 25 mg Oral Nightly thiamine (VITAMIN B1) IVPB 100 mg Intravenous Q24H CONTINUOUS INFUSIONS sodium chloride (IV) 30 mL/hr at 10/16/14 1128 FAMILY HISTORY OF SIGNIFICANCE No family history on file. SOCIAL HISTORY History Social History Marital Status: Spouse Name: N/A Number of Children: N/A Years of Education: N/A Occupational History Not on file. Social History Main Topics Smoking status: Current Every Day Smoker Types: Cigarettes Smokeless tobacco: Not on file Alcohol Use: Yes Comment: several large malt beers daily when he binge drinks but has periods of not drin jessica Drug Use: Yes Comment: uknown but possibly methamphetamines Sexual Activity: Not on file Other Topics Concern Not on file Social History Narrative PHYSICAL EXAM VITAL SIGNS Temp: [98.4 F (36.9 C)-99.1 F (37.3 C)] 99.1 F (37.3 C) Heart Rate: [90-118] 106 Resp: [11-39] 22 BP: (116-152)/(69-100) 140/83 mmHg Intake/Output Summary (Last 24 hours) at 10/16/14 1429 Last data filed at 10/16/14 0600 Gross per 24 hour Intake 904 ml Output 610 ml Net 294 ml EXAM GEN: Patient is laying in bed interactive and appropriate smiling with conversation but a ffect is overall more flat today. NEURO: Mental Status: Eyes open spontaneously patient nods appropriately to questions and verb alized. CN: corneals present, right pupil 6 mm and reactive, left pupils 4 mm and reactive. Motor: Able to move upper extremity to commands equally. Left LE strength greater than Right LE weak. General strengths are weak. Lifts head up off bed but weakly. Right facial dr oop. Sensory: Intact HEENT: right scalp stapled and dressed, YOSEF drains are now out, sclerae clear, nonicteric, o ral mmm, pink, no exudates. NECK: supple, trachea midline, supple HEART: RRR, S1/S2, no murmur, rub or gallop LUNGS: clear b/l with minimal upper airway rhonchi, no wheezing, crackles RR even and regul ar rate. RA sats 98%. ABD: soft, nondistended, no masses EXTR: no edema, clubbing or cyanosis SKIN: warm, dry, no rash or mottling; no e/o skin breakdown over the occiput, scapulae, elb ows, sacrum or heels LINES/TUBES: PIVs DATA Recent Labs Lab 10/16/14 0409 10/15/14 0559 10/14/14 0415 WBC 8.7 8.2 9.8 HGB 11.9* 11.1* 9.7* HCT 36.0* 34.0* 29.4* PLT 201 162 124* NEUTOPHILPCT 77.8 72.7 81.9 MONOPCT 10.5 13.0 9.3 Recent Labs Lab 10/16/14 0409 10/15/14 1506 10/15/14 0559 10/14/14 2258 10/11/14 2237 10/11/14 1949 NA 138 -- 137 139 < > -- 138 K 3.4* 3.4* 3.8 3.5 < > -- 2.7* CL 102 -- 105 103 < > -- 102 CO2 27 -- 28 26 < > -- 25 BUN 8 -- 8 9 < > -- 7* CREATININE 0.44* -- 0.51* 0.75 < > -- 0.68* PROT -- -- -- -- -- 6.3 -- BILITOT -- -- -- -- -- 1.6* -- ALT -- -- -- -- -- 54 -- AST -- -- -- -- -- 61* -- < > = values in this interval not displayed. Recent Labs Lab 10/12/14 [address] Head Without Contrast 10/14/2014 1. Unchanged position of the right scalp drain with interval development of ed wilian in the extracranial soft tissues posterior to the drains. These findings may be related to the patient's volume status although infection is not excluded. Clinical correlation is r ecommended. 2. Decreased conspicuity of acute subdural hematoma along the right tentorial le af. 3. Decreased right to left subfalcian herniation from 14 mm to 9 mm. 4. No interval hemo rrhage. RADIA Electronically signed by Ida Lawton MD on Oct 14 2014 5:24AM Refe rring Provider Line: [id number] ID: [id number] Xr Chest 1 View 10/14/2014 1. Tubes and lines in expected positions. 2. Improving bilateral vascular con gestion and atelectasis. X-ray Chest 1 View 10/13/2014 1. Stable position of endotracheal and nasogastric tubes. 2. No new consolida tion. Xr Ct Portable Head Unenhanced 10/11/2014 1. Post evacuation of the subdural hematoma and wide right frontotemporal deco mpression, with expected surgical changes, pneumocephalus and drain. 2. Significant mass ef fect and edema remains, but there are some anatomic improvements as above. 3. The significa nt majority of the subdural collection has been evacuated, with some residual about the tent orium LEM LIST Principal Problem: Traumatic brain injury, closed Active Problems: Alcohol abuse Frequent falls Seizure Subdural hematoma, post-traumatic Alcohol withdrawal ASSESSMENT & PLAN NEURO: Severe TBI with large R SDH and MLS: s/p craniectomy. Patient continues to have remarka ble exam today with the patient following commands moving bilateral upper extremities. Orth otics was consultated and [facility] came and measured him for a helmet for protection with ambulation out of bed. They should be bringing the kye today. Prevention: Seizure cont Keppra will discuss with a neurosurgeon length of seizure pro phylaxis. Patient was witnessed to have a seizure at home. Alcohol withdrawal monitoring: not showing signs of DT's. We'll continue to observe for signs of alcohol withdrawal patient is currently not requiring any benzodiazepines or Preced ex infusion. Continue thiamine and folic acid CAM-ICU exam eval for delirium every shift: patient has been negative during the day and positive at night x2 days. Seroquel ordered at night. Massage therapy: requested. CV: HTN: prn labetalol and hydralazine for SBP>160. PULM: Acute respiratory failure: patient is now extubated and on room air will continue with pul monary toilet encouraging deep breathing and coughing and incentive spirometry. GI/NUTRITION: Nutrition: Speech therapy has evaluated the patient swallow he is on a mechanically alt ered dysphagia diet with honey thick liquids. RENAL/LYTES: Normal renal function: Daniels catheter has been discontinued. ID: No infections: Pro calcitonin 0.01. WBC normal. Intermittent fevers could be due to brai n injury. CXR without infiltrate. Only positive finding was purulent sputum. Will continue to monitor HEME: Mild anemia of acute hemorrhage but also poss due to chronic ds from ETOH abuse. No prio r CBC. ENDO: No issues. Glucose wnl. MUSC/SKIN: Physical therapy, occupational therapy to evaluate and treat patient may need inpatient traumatic brain injury rehabilitation center. PROPHYLAXIS: Stress ulcer prophylaxis: NA DVT prophylaxis: SCDs and Heparin SC ok with Dr. Nj will add Heparin today. VAP: not applicable Disposition: I have transferred the patient to the hospitalist service under the care of Robert Abbott. Code Status: Full Code Primary Care Physician: PER PT NONE *Please bill 45 minutes of critical care time spent evaluating the patient, reviewing the d travis and formulating a plan exclusive of all other procedures. JENNIFER SMALL 10/16/2014 2:29 PM onversion Transaction, Provider Unknown - 10/16/2014 2:15 PM PSTFormatting of this note might be diff erent from the original. Therapy Progress Note by Ki Martinez, PT at 10/16/14 1415 Author: Ki Martinez PT Service: (none) Author Type: Physical Therapist Filed: 10/16/14 0878 Date of Service: 10/16/141414 Status: Signed Highway Maintenance Supervisor: Ki Martinez PT (Physical Therapist) 10/16/14 1415 PT Last Visit PT Received On 10/16/14 Reason for Treatment Other (comment) (TBI Right SDH ) Requires PT Follow Up Yes (still waiting for ortho helmet) Follow up PT Only? Yes Assistance Required 2 person Precautions Other Precautions (missing bone flap on R side) Other Comments Comments Pt.'s ortho helmet still hasn't arrived. Spoke to JENNIFER Monzon who reports that via Dr. Nj, the pt. is clear to initiate upright mobility without ortho helmet. Will continu e however to hold on attempting mobility away from bedside to chair until ortho helmet is in place. Pt. appears very downtrodden/depressed. Pt. aknowledged his feeling depressed. Pt . is slightly more alert. He is intermittently lethargic however is AOx3. Pt. denies pain when asked. Pt. was assited into sitting at EOB w/ maxAx2. Pt. was initially able to maint ain midline sitting w/ CGA for approx. 5 seconds, then he started to list to his right. Pt. was unable to regain midline sitting. He required modA to attain and maintain midline sitt ing from that point on. Pt.'s R sided weakness remains unchanged as per yesterday's assessm ent. There is trace proximal RLE activation. Distal RLE is 0/5. Worked on LE LAQ/AP/hip f lexion while sitting at EOB. Pt. required Aguilar to perform movements w/ the LLE and maxA/dep endent for the RLE. Pt. tolerated acitivty fair. He remains depressed, but was happy to be able to sit up and perform some activity. As stated, will begin to assess OOB mobility onc e ortho helmet arrives. BP found to be 127/72 while in upright sitting. Pt. was assisted b ack into bed w/ HOB elevated to about 45 deg. Call light left in reach. Cognition Overall Cognitive Status WFL Orientation Level Oriented Comments lethargic/depressed Static Sitting Balance Static Sitting-Balance Support Feet supported Static Sitting-Level of Assistance Attains midline;Doesn't attain midline;Doesn't maintain midline;Moderate assist;Verbal instruction;Visual instruction/cues Seated Seated-Exercise Type Ankle pumps;Long arc quads;Toe raises Seated-Exercise Comments 10 reps bilat. Activity Tolerance Activity Tolerance Patient tolerated treatment without report of fatigue;Treatment limited secondary to medical complications Nurse Made Aware yes Safety Devices Safety Devices in Place (Call light in reach ) Plan Treatment/Interventions Continue per Primary PT POC Progress Slow progress, medical status limitations Recommendation Recommendations Defer at this time Recommendation Comments still awaiting ortho helmet prior to OOB mobility assessment onver alem Transaction, Provider Unknown - 10/16/2014 1:00 PM PST Case Management by TABITHA Sidhu at 10/16/14 1300 Author: TABITHA Sidhu Service: (none) Author Type: Boat Oar Maker Filed: 10/16/14 4864 Date of Service: 10/16/14 1300 Status: Signed Highway Maintenance Supervisor: TABITHA Sidhu (Boat Oar Maker) Received t/c from Dayami BRAVO ([phone]). She is requesting PT notes. I informed her that PT is unable to assess pt until pt's helmet comes in. I informed her that we have a yenny siatrist in house that likely can do a physiatry consult. She expressed concern that pt will not have any family available to do family training. I offered her pt's mothers phone jarret hartman however she wants to wait until pt has been seen by PT to go further with referral. I also informed her that I made a referral to [facility] as a back up plan if pt is not an IPR ca ndidate. I called Doroteo Chamorro for [facility] and she confirmed that [facility] Medicaid requires that pt go to an [place] facility for rehab. Await PT/OT eval. Speech Therapy is already involved. onver alem Transaction, Provider Unknown - 10/16/2014 12:20 PM PST Case Management by TABITHA Sidhu at 10/16/14 1220 Author: TABITHA Sidhu Service: (none) Author Type: Boat Oar Maker Filed: 10/16/14 1220 Date of Service: 10/16/14 1220 Status: Signed Highway Maintenance Supervisor: TABITHA Sidhu (Boat Oar Maker) Placed t/c to [facility] and left message requesting bed availability and acceptance. Await return call. [facility] - Admissions- [phone] onver alem Transaction, Provider Unknown - 10/16/2014 12:01 PM PST Therapy Progress Note by Ki Martinez, PT at 10/16/14 1201 Author: Ki Martinez PT Service: (none) Author Type: Physical Therapist Filed: 10/16/14 1334 Date of Service: 10/16/14 1201 Status: Signed Highway Maintenance Supervisor: Ki Martinez PT (Physical Therapist) 10/16/14 1201 PT Last Visit PT Received On 10/16/14 (still awaiting ortho helmet delivery) Requires PT Follow Up Yes;On hold RDWaCyndy peters MD - 10/16/2014 11:22 AM PST Progress Notes by Cyndy Nj MD at 10/16/14 1122 Author: Cyndy Nj MD Service: Neurosurgery Author Type: Physician Filed: 10/16/14 1124 Date of Service: 10/16/14 1122 Status: Signed Highway Maintenance Supervisor: Cyndy Nj MD (Physician) [facility] Service: Neurosurgery Progress Note Hospital Day: LOS: 5 days Post-Op Day: 5 Days Post-Op SUBJECTIVE Patient Summary: s/p R decompressive craniectomy, drains removed yesterday. Events Overnight: Repeat CT this am. Trouble sleeping last night Scheduled Medications docusate sodium 100 mg Oral BID Or docusate 100 mg Per OG Tube BID folic acid (FOLVITE) IVPB 1 mg Intravenous Daily levETIRAcetam 1,000 mg Intravenous Q12H QUEtiapine 25 mg Oral Nightly thiamine (VITAMIN B1) IVPB 100 mg Intravenous Q24H Continuous Infusions sodium chloride (IV) 150 mL/hr at 10/13/14 0117 PRN Medications acetaminophen, acetaminophen OR acetaminophen, hydrALAZINE, labetalol, lip moisturizer, magnesium sulfate OR magnesium sulfate OR magnesium sulfate OR magnesium sulfat e, morphine OR morphine OR morphine, nystatin, nystatin, ondansetron OR ondanset gildardo, pancrelipase (Raa-Jubd-Bzne) 10,000 units, petrolatum, phosphorus OR sodium phospha te IVPB 20 mmol OR sodium phosphate IVPB 45 mmol, polyethylene glycol potassium chloride OR potassium chloride OR potassium chloride, potassium chloride OR potassium chloride OR potassium chloride, sodium bicarbonate OBJECTIVE Vital Signs: BP 134/92 | Pulse 104 | Temp(Src) 98.5 F (36.9 C) (Oral) | Resp 15 | Ht 1.778 m (5' 10" ) | Wt 98.1 kg (216 lb 4.3 oz) | BMI 31.03 kg/m2 | SpO2 98% Temp: [98.3 F (36.8 C)-98.8 F (37.1 C)] 98.5 F (36.9 C) (10/16 0800) BP: (116-152)/(69-100) 134/92 mmHg (10/16 799) Heart Rate: [90-118] 104 (10/16 799) Resp: [11-39] 15 (10/16 799) SpO2: [96 %-100 %] 98 % (10/16 799) awake, alert, FC Incision CDI Dressing removed, scalp/bony defect soft, no drainage MASTERS DATA R subdural hygroma slightly larger. Ct Head Without Contrast 10/16/[address] without contrast. INDICATION: Decompressive craniectomy for head traum a Technique: head CT without contrast. COMPARISON: 10/14/2014 FINDINGS: Large decompressi ve craniectomy overlies the frontal, parietal and temporal lobes. The surgical drain overlyi ng the craniectomy site has been removed. There is a hypodense subpleural collection overlyi ng the right frontal convexity now measuring a to 11 mm in thickness, previously on the orde r of 6 mm. There is midline shift to the left by 6 mm, not changed significantly when remeas ured. Stable small, mixed density subdural collection over the right tentorium. Basal cister ns remain visible. No hydrocephalus. 10/16/2014 Right-sided drain has been removed. No evidence of interval hemorrhage or wors ening mass effect. Hypodense subdural collection over the right frontal convexity has increa sed in size. Serial followup suggested. No other significant interval change. Electronical ly signed by Jimbo Mckeon MD on Oct 16 2014 6:08AM Referring Provider Line: [phone] E ID: [id number] PROBLEM LIST Principal Problem: Traumatic brain injury, closed Active Problems: Alcohol abuse Frequent falls Seizure Subdural hematoma, post-traumatic Alcohol withdrawal ASSESSMENT & PLAN Patient doing well. OK for tx to the floor from my standpoint, and for SQ heparin DVT proph ylaxis. Rehab consult likely needed. Plan repeat CT in AM to f/u hygroma Code Status: Full Code Cyndy Nj MD 10/16/2014 Maria Teresa Dhillon MA, CCC-INTELLIGENCE INTERN - 10/16/2014 9:40 AM PST Therapy Progress Note by MS TK Hayes-INTELLIGENCE INTERN at 10/16/14939 Author: MS KT Hayes-INTELLIGENCE INTERN Service: (none) Author Type: Speech Therapist Filed: 10/16/14940 Date of Service: 10/16/14939 Status: Signed Highway Maintenance Supervisor: MS KT Hayes-INTELLIGENCE INTERN (Speech and Language Pathologist) 10/16/14920 Swallowing Assessment Eval Swallowing Treatment Yes Initial Swallow Assessment Respiratory Status Room air Behavior/Cognition Cooperative;Lethargic;Requires cueing Dentition Adequate;Poor dental/oral hygiene Vision Impaired for self-feeding Patient Positioning Upright in bed Volitional Cough Weak Volitional Swallow Delayed Consistencies Consistencies Assessed Yes Roebling Presentation Spoon Oral WFL;Increased Anterior to Posterior Transit Pharyngeal Phase Delayed swallow initiated;Decreased laryngeal elevation upon palpation;Cou gh - delayed;Spontaneous double swallow Puree Presentation Spoon Oral Phase Increased oral holding time Pharyngeal Delayed Swallow;Cough - Delayed;Spontaneous double swallow;Decreased Laryngeal E levation Recommendations Liquids Consistency Recommendations Roebling thick;Other (comments) (No straws ) Diet Consistency Recommendation Pureed;Other (comment) (1 puree snack 3-4 times a day) Recommendations Dysphagia treatment;1:1 supervision;Feeding assist;Set up with meals;Check on patients frequently throught out meals Risk for Aspiration Moderate Compensatory Swallowing Strategies Upright as possible for all oral intake;Remain upright f or 30 minutes after meals;Alternate solids and liquids;Swallow 2 times per bite/sip;No straw s;Small bites/sips;Eat/feed slowly;Effortful swallow Recommended Form of Meds Meds floated in puree Summary Pt observed with nectar thick by spoon and puree breakfast snack. Pt demonstrated v trixie delayed swallow initiation, requring cueing to initiate. Pt demonstrated delayed coughin g with nectar thick (2/9 trials) and puree (1/9). Pt lethargic and did not verbalize during evaluation. Recommend cont. same diet as pt's NAPOLEON is decreased and he requires 1:1 supervisi on with cueing to swallow safely. ST to cont. to follow. Staff Notified RN Plan of Care Treatment Plan ST to follow;Dysphagia treatment;Daily 4 to 6 times a week Follow up treatments Diet tolerance monitoring;Patient/Family education;Assessment for upgr khadijah;Swallow strategies Dysphagia Goals Hair Baler Goals Safe/efficient oral intake;Advanced diet Pt will have safe/efficient oral intake Roebling thick liquids;Puree diet;Goal progressing Pt will advanced diet in 3 days;Goal progressing Short Term Goals Tolerate diet upgrade trials Pt will tolerate diet upgrade trials With 1:1 supervision;Goal progressing onver alem Transaction, Provider Unknown - 10/16/2014 9:12 AM PST Case Management by TABITHA Sidhu at 10/16/14911 Author: TABITHA Sidhu Service: (none) Author Type: Boat Oar Maker Filed: 10/16/14 0679 Date of Service: 10/16/14911 Status: Addendum Highway Maintenance Supervisor: TABITHA Sidhu (Boat Oar Maker) Related Notes: Original Note by TABITHA Sidhu (Boat Oar Maker) filed at 10/16/1414 10/16/14 0908 Discharge Planning Evaluation Admitting Diagnosis TBI Readmission No Living Arrangements Alone Support Systems Parent;Children Type of Residence Private residence (Lives on the [facility] House type (Duplex) Independent with ADL's Yes Independent with Mobility Yes Home Care Services No Caregiver after Discharge Yes Relationship to Patient Mother and children Prior functional status Independent prior to admit. Driving, made own meals, did own chores . 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 No DME used. Alcoholic. Mother states he has been drinking more and more. x 3 years. Resources Financial concerns No Transportation issues No Patient/Family concerns No Prescription Plan Yes Name of Pharmacy [facility] Anticipated Disposition Facility Type Inpatient Rehabilitation;halfway facility Spoke with pt's mother Teressa ([phone]) and discussed discharge planning, Pt is a 53 y.o., male admitted with TBI from 2 falls rela stephenie to etoh. Per mother, pt was driving, shopping, doing own chores prior to admit. 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 Patient's PCP is: PER PT NONE Patient's insurance:[facility] Medicaid Coverage concerns: Medication coverage/concerns: [facility] [facility] Delivery: Community resources utilized / needed: Assistance in transportation: TBD Identification of any specific education / training: Barriers to Discharge / Alternative housing needed: Anticipated DCP: TBI Rehab vs. SNF. Faxed clinical to [facility]as[facility] Pal[facility]. HAYES STEEN onver alem Transaction, Provider Unknown - 10/15/2014 5:22 PM PST Progress Notes by Maye Saleem RD, CD at 10/15/141721 Author: Maye Saleem RD, CD Service: (none) Author Type: Registered Dietitian Filed: 10/15/14 3375 Date of Service: 10/15/141721 Status: Signed Highway Maintenance Supervisor: Maye Saleem RD, CD (Registered Dietitian) Nutrition Follow-Up High-risk follow-up. Assessment: Extubated yesterday. Appetite is good. Nutritionally pertinent labs: BG has been variable in the 100s, Nutrition-focused physical findings: Skin is intact. INTELLIGENCE INTERN is following due to dysphagia. Diet order/current intake: Puree snacks 1 item 3-4 x per day with nectar thick liquids by s vasiliy only. Per RN, pt ate pureed meatloaf for lunch today. Nutrition Diagnosis: Inadequate intake related to decreased ability to consume sufficient energy/protein and inc reased kcal/protein requirements for healing as evidenced by restriction to puree snacks onl y and TBI. Intervention: Continue diet per INTELLIGENCE INTERN. 1:1 feeding assistance with meals. Include Ensure pudding with meal trays when appropriate. Additional supplements to be provided once diet can be advanced. Goal: Pt will tolerate diet upgrade and intake will be adequate to meet pt's estimated nutritiona l requirements. Recommendations: 1) General diet with texture/liquid modifications as per INTELLIGENCE INTERN recommendations. 2) Ensure pudding with meal trays once pt can have additional puree items. Monitoring: Will follow up in 3 days or as indicated. Maye Saleem RD, CD 10/15/2014 Cyndy Warner MD - 10/15/2014 4:32 PM PST Progress Notes by Cyndy Nj MD at 10/15/14 1632 Author: Cyndy Nj MD Service: Neurosurgery Author Type: Physician Filed: 10/15/14 1633 Date of Service: 10/15/14 1632 Status: Signed Highway Maintenance Supervisor: Cyndy Nj MD (Physician) [facility] Service: Neurosurgery Progress Note Hospital Day: LOS: 4 days Post-Op Day: 4 Days Post-Op SUBJECTIVE Patient Summary: s/p decompressive R craniectomy Events Overnight: Awake following commands Scheduled Medications docusate sodium 100 mg Oral BID Or docusate 100 mg Per OG Tube BID folic acid (FOLVITE) IVPB 1 mg Intravenous Daily furosemide 40 mg Intravenous BID levETIRAcetam 1,000 mg Intravenous Q12H thiamine (VITAMIN B1) IVPB 100 mg Intravenous Q24H Continuous Infusions sodium chloride (IV) 150 mL/hr at 10/13/14 0117 PRN Medications acetaminophen, acetaminophen OR acetaminophen, hydrALAZINE, labetalol, lip moisturizer, magnesium sulfate OR magnesium sulfate OR magnesium sulfate OR magnesium sulfat e, morphine OR morphine OR morphine, nystatin, nystatin, ondansetron OR ondanset gildardo, pancrelipase (Nal-Ezdd-Tdhr) 10,000 units, petrolatum, phosphorus OR sodium phospha te IVPB 20 mmol OR sodium phosphate IVPB 45 mmol, polyethylene glycol potassium chloride OR potassium chloride OR potassium chloride, potassium chloride OR potassium chloride OR potassium chloride, sodium bicarbonate OBJECTIVE Vital Signs: BP 129/84 | Pulse 96 | Temp(Src) 98.3 F (36.8 C) (Axillary) | Resp 19 | Ht 1.778 m (5' 10") | Wt 98.1 kg (216 lb 4.3 oz) | BMI 31.03 kg/m2 | SpO2 100% Temp: [98.2 F (36.8 C)-100.2 F (37.9 C)] 98.3 F (36.8 C) (10/15 1400) BP: (86-152)/(54-84) 129/84 mmHg (10/15 1500) Heart Rate: [59-110] 96 (10/15 1600) Resp: [18-36] 19 (10/15 1600) SpO2: [94 %-100 %] 100 % (10/15 1300) Awake, follows commands Incision CDI PROBLEM LIST Principal Problem: Traumatic brain injury, closed Active Problems: Alcohol abuse Frequent falls Seizure Subdural hematoma, post-traumatic Alcohol withdrawal ASSESSMENT & PLAN Drain d/c'd, tip intact CT in AM Likely tx to floor if stable On ETOH protocol Helmet Disposition: harper Code Status: Full Code Cyndy Nj MD 10/15/2014 onversio n Transaction, Provider Unknown - 10/15/2014 4:10 PM PSTFormatting of this note might be di fferent from the original. Therapy Progress Note by Ki Martinez PT at 10/15/14 1610 Author: Ki Martinez PT Service: (none) Author Type: Physical Therapist Filed: 10/15/141932 Date of Service: 10/15/141609 Status: Signed Highway Maintenance Supervisor: Ki Martinez PT (Physical Therapist) 10/15/14 161 PT Last Visit PT Received On 10/15/14 Reason for Treatment Other (comment) (TBI Right SDH ) Requires PT Follow Up Awaiting tx order Follow up PT Only? Yes PT Eval/Reassessment Date 10/15/14 Assistance Required Other (comment) (need ortho helmet for OOB mobility) Plan Treatment/Interventions Bed mobility training;Gait training;Stair training;Transfer trainin g;Balance training (and funcitonal dynamic activities ) PT Frequency 5-7x/wk;Once per day Care Duration (# of days) 7 # of days Home Environment Additional Comments unable to attain any hx from pt at this time Recommendation Recommendations Defer at this time Recommendation Comments PT will defer recommendation at this time due to lack of ability to asses pt mobility, balance, sensation, and funcitonal dynamic activity; as well as PT is un awear of pt prior level of function and enviorment/home. Prior Function Lives With Other (Comment) (Cousin ) Comments Pt stated that he lived with his cousin, but PT was unable to attain any other hx at this time. RUE Assessment RUE Assessment X (general weakness; R weaker than L ) LUE Assessment LUE Assessment X (general weakness; R weaker than L ) RLE Assessment RLE Assessment X (general weakness; R weaker than L ) LLE Assessment LLE Assessment X (general weakness; R weaker than L ) Cognition Overall Cognitive Status AIRAM (Pt was quite lethargic and pretty much non-verbal ) Orientation Level Oriented (oriented to self and , unable to asses any other info ) Sensation Light Touch (Unable to attain an accurate assesment ) Sharp/Dull (Unable to attain an accurate assesment ) Stereognosis (Unable to attain an accurate assesment ) Deep Pressure (Unable to attain an accurate assesment ) Perception Inattention/Neglect Appears intact Motor Planning Apparent deficit Assessment of Patient Status Assessment of Patient Status Decreased functional mobility;Decreased LE strength;Decreased UE strength;Impaired sensory processing;Impaired proprioception;Decreased ADL status;Decrea sed ability to follow commands;Decreased level of alertness/ arousal Prognosis Limited by multiple medical complications Safety Devices Safety Devices in Place (Call light in reach ) 10/15/14 1610 PT Last Visit PT Received On 10/15/14 Reason for Treatment Other (comment) (TBI Right SDH ) Requires PT Follow Up Awaiting tx order Follow up PT Only? Yes PT Eval/Reassessment Date 10/15/14 Assistance Required Other (comment) (need ortho helmet for OOB mobility) Other Comments Comments Pt is a s/p TBI from 2 falls possiblity due to alcohol abuse, and pt had a severe R SDH, which required immediate evacuation. Pt has an ortho helmet that should be in tomorro w. Due to pt not having helmet and his very lethargic state it was unsafe to sit up upright or amb. Pt was in a position that was modified supine, in which it was somewhat in a chair p osition. Pt was able to quietly verbalize his name and , after this pt was practically no n-verbal. Pt was unable to isometrically hold BUE at 90 deg of shld flex. Pt was able to gri p with bilateral hands, but had minimal house calls nurse practitioner bilaterally. Pt was able to reach anteriorly an d superiorly with his LUE and unable to with his RUE even with AAROM (became PROM). Pt was a ble to perform SLR with LLE, pt has a trace visible mm contraction with his R quad mm. Pt wa s able to actively and then hold isometrically DF with LLE and unable to actively or isometr ically hold in DF on with RLE. Pt was able to perform bilateral hip/knee resisted knee exten alem, but was significantly stronger on the L compared to the right. Pt was unable to L flex the R hip, and able to flex L hip. PT attempted to asses sensatiion due to lethargic state and non-verbal state. Pt returned pt to partial chair position and informed RN of findings. Cognition Overall Cognitive Status AIRAM (Pt was quite lethargic and pretty much non-verbal ) Orientation Level Oriented (oriented to self and , unable to asses any other info ) Mobility Ambulation Assistance Not performed;Safety concerns (Waiting for ortho helmet ) Supine Supine-Exercise Type Resisted hip/knee extension;Ankle pumps;SLR (Also AAROM/PROM of BUE. ) Supine-Exercise Comments x5 ea. Pt unable to perform AP on the RLE and pt had marked decrea se strength with R resisted hip/knee ext on the right, however pt was able to generate some muscle contraction to perform resisted ex on the right. Pt was unable to perform SLR on the right, but did see and feel trace mm contraction. Activity Tolerance Activity Tolerance Treatment limited secondary to medical complications Nurse Made Aware Yes Safety Devices Safety Devices in Place (Call light in reach ) Plan Treatment/Interventions Bed mobility training;Gait training;Stair training;Transfer trainin g;Balance training (and funcitonal dynamic activities ) PT Frequency 5-7x/wk;Once per day Care Duration (# of days) 7 # of days Recommendation Recommendations Defer at this time Recommendation Comments PT will defer recommendation at this time due to lack of ability to asses pt mobility, balance, sensation, and funcitonal dynamic activity; as well as PT is un awear of pt prior level of function and enviorment/home. Shania Howard ARNP - 10/15/2014 11:47 AM PSTFormatting of this note might be different f rom the original. Progress Notes by JENNIFER Small at 10/15/14 1147 Author: JENNIFER Small Service: Conductor And Engineer Author Type: Conductor And Engineer Filed: 10/15/14 1203 Date of Service: 10/15/14 1147 Status: Signed Highway Maintenance Supervisor: JENNIFER Small (Nurse Practitioner) [facility] Service: Conductor And Engineer Progress Note Jimenezrobert Fortune 53 y.o. Date of Admission: 10/11/2014 Treatment Team: Consulting Physician: Anila Delgado MD Admitting Provider: Harika Apodaca MD CHIEF COMPLAINT: severe TBI, large right SDH with massive midline shift, IC hypertension HISTORY OF PRESENT ILLNESS The patient is a 53 y.o. male with significant past medical history of chronic alcohol abus e and multiple falls. Per ED report from [facility]: he was drinking earlier today at home and fell twice. He went to bed and then he was noted to be having what they thought was seizure activity and th ey could not wake him and called EMS. He was taken to the ED at [facility] in [place] a nd then transferred to the ED here for emergent neurosurgical evaluation for large acute rig ht SDH with 2 cm midline shift. He was admitted to the ICU post-op craniectomy and yosef drains x2. by Dr. Delgado still intu bated and comatose off sedation with intermittent decerebrate posturing but has cough and co rneal reflexes. ICU Time Line: 10/11/2014: Decompressive Craniectomy on right for SDH GCS 4 10/12/2014: Patients neurologic examination continues to improve woke up and was able to f ollow commands by wiggling the tip of his right thumb and left foot. 10/13/2014: Patients neurologic exam continues to improve. Had an episode of flash pulmonar y edema with HTN and tachycardia. Diuresed. 10/14/2014: Extubated. 10/15/2014: Swallow eval and PT to advance today. Kye ordered for protection of craniect scarlett-orthotics consult Overnight Events: Neurologic examination continues to improve. PAST MEDICAL HISTORY Past Medical History Diagnosis Date Alcohol abuse Frequent falls Drug abuse PAST SURGICAL HISTORY Past Surgical History Procedure Laterality Date No past surgeries Craniotomy Right 10/11/2014 Procedure: CRANIOTOMY - FOR BLEED; Surgeon: Anila Delgado MD; Location: [facility] IN OR; Service: Neurosurgery; Laterality: Right; Craniectomy Right 10/11/2014 Procedure: CRANIECTOMY; Surgeon: Anila Delgado MD; Location: [facility] OR; Ser vice: Neurosurgery; Laterality: Right; ALLERGIES Allergies Allergen Reactions Penicillins Other (See Comments) Unknown MEDICATIONS PRIOR TO ADMISSION No prescriptions prior to admission SCHEDULED MEDICATIONS docusate sodium 100 mg Oral BID Or docusate 100 mg Per OG Tube BID folic acid (FOLVITE) IVPB 1 mg Intravenous Daily furosemide 40 mg Intravenous BID levETIRAcetam 1,000 mg Intravenous Q12H thiamine (VITAMIN B1) IVPB 100 mg Intravenous Q24H CONTINUOUS INFUSIONS sodium chloride (IV) 150 mL/hr at 10/13/14 0117 FAMILY HISTORY OF SIGNIFICANCE No family history on file. SOCIAL HISTORY History Social History Marital Status: Spouse Name: N/A Number of Children: N/A Years of Education: N/A Occupational History Not on file. Social History Main Topics Smoking status: Current Every Day Smoker Types: Cigarettes Smokeless tobacco: Not on file Alcohol Use: Yes Comment: several large malt beers daily when he binge drinks but has periods of not drin jessica Drug Use: Yes Comment: uknown but possibly methamphetamines Sexual Activity: Not on file Other Topics Concern Not on file Social History Narrative PHYSICAL EXAM VITAL SIGNS Temp: [94.1 F (34.5 C)-100.4 F (38 C)] 94.1 F (34.5 C) Heart Rate: [56-110] 97 Resp: [18-36] 24 BP: (86-152)/(52-83) 129/80 mmHg FiO2 : [30 %-32 %] 30 % Intake/Output Summary (Last 24 hours) at 10/15/14 1147 Last data filed at 10/15/14 1016 Gross per 24 hour Intake 2417 ml Output 6777 ml Net -4360 ml EXAM GEN: Patient is sitting in bed interactive and appropriate smiling with conversation.. NEURO: Mental Status: Eyes open spontaneously patient nods appropriately to questions. CN: corneals present, right pupil 6 mm and reactive, left pupils 4 mm and reactive. Motor: Able to move upper extremity to commands equally. Left LE strength greater than Right LE weak. General strengths are weak. Lifts head up off bed but weakly. Right facial dr oop. Sensory: Intact HEENT: right scalp stapled and dressed, YOSEF drains x1, sclerae clear, nonicteric, oral mmm, pink, no exudates. NECK: supple, trachea midline, supple HEART: RRR, S1/S2, no murmur, rub or gallop LUNGS: clear b/l with minimal upper airway rhonchi, no wheezing, crackles ABD: soft, nondistended, no masses EXTR: no edema, clubbing or cyanosis SKIN: warm, dry, no rash or mottling; no e/o skin breakdown over the occiput, scapulae, elb ows, sacrum or heels LINES/TUBES: PIVs DATA Recent Labs Lab 10/15/14 0559 10/14/14 0415 10/13/14 0247 WBC 8.2 9.8 7.1 HGB 11.1* 9.7* 9.7* HCT 34.0* 29.4* 29.8* PLT 162 124* 107* NEUTOPHILPCT 72.7 81.9 78.6 MONOPCT 13.0 9.3 11.3 Recent Labs Lab 10/15/14 0559 10/14/14225710/14/14210810/14/1441410/11/14223610/11/141948 NA 137 139 -- 136 < > -- 138 K 3.8 3.5 3.1* 3.8 < > -- 2.7* CL 105 103 -- 109 < > -- 102 CO2 28 26 -- 22* < > -- 25 BUN 8 9 -- 9 < > -- 7* CREATININE 0.51* 0.75 -- 0.50* < > -- 0.68* PROT -- -- -- -- -- 6.3 -- BILITOT -- -- -- -- -- 1.6* -- ALT -- -- -- -- -- 54 -- AST -- -- -- -- -- 61* -- < > = values in this interval not displayed. Recent Labs Lab 10/12/14 [address] Head Without Contrast 10/14/2014 1. Unchanged position of the right scalp drain with interval development of ed wilian in the extracranial soft tissues posterior to the drains. These findings may be related to the patient's volume status although infection is not excluded. Clinical correlation is r ecommended. 2. Decreased conspicuity of acute subdural hematoma along the right tentorial le af. 3. Decreased right to left subfalcian herniation from 14 mm to 9 mm. 4. No interval hemo rrhage. RADIA Electronically signed by Ida Lawton MD on Oct 14 2014 5:24AM Refe savage Provider Line: [phone] ID: [id number] Xr Chest 1 View 10/14/2014 1. Tubes and lines in expected positions. 2. Improving bilateral vascular con gestion and atelectasis. X-ray Chest 1 View 10/13/2014 1. Stable position of endotracheal and nasogastric tubes. 2. No new consolida tion. Xr Ct Portable Head Unenhanced 10/11/2014 1. Post evacuation of the subdural hematoma and wide right frontotemporal deco mpression, with expected surgical changes, pneumocephalus and drain. 2. Significant mass ef fect and edema remains, but there are some anatomic improvements as above. 3. The significa nt majority of the subdural collection has been evacuated, with some residual about the tent orium LEM LIST Principal Problem: Traumatic brain injury, closed Active Problems: Alcohol abuse Frequent falls Seizure Subdural hematoma, post-traumatic Alcohol withdrawal ASSESSMENT & PLAN NEURO: Severe TBI with large R SDH and MLS: s/p craniectomy. Patient continues to have remarka ble exam today with the patient following commands moving bilateral upper extremities. Orth otics has been consultative and they will come and measure the patient for a helmet for prot ection with ambulation out of bed. Prevention: Seizure cont Keppra will discuss with a neurosurgeon length of seizure pro phylaxis. Alcohol withdrawal monitoring: not showing signs of DT's. We'll continue to observe for signs of alcohol withdrawal patient is currently not requiring any benzodiazepines or Preced ex infusion. Continue thiamine and folic acid CV: HTN: prn labetalol and hydralazine for SBP>160. Do not need to titrate to CPP as skull o ff but will allow mild HTN for perfusion. PULM: Acute respiratory failure: patient is now extubated and on room air will continue with pul monary toilet encouraging deep breathing and coughing and incentive spirometry. GI/NUTRITION: Nutrition: Each therapy has evaluated the patient swallow he is on a mechanically alter ed dysphagia diet and we will initiate this today. RENAL/LYTES: Normal renal function: diuresing today with Lasix due to fluid overload. will DC Daniels catheter after defects of Lasix have worn off. ID: No infections: Pro calcitonin 0.01. WBC normal. Intermittent fevers could be due to brai n injury. CXR without infiltrate. Only positive finding was purulent sputum. Will continue to monitor HEME: Mild anemia of acute hemorrhage but also poss due to chronic ds from ETOH abuse. No prio r CBC. ENDO: No issues. Glucose wnl. MUSC/SKIN: Physical therapy, occupational therapy to evaluate and treat patient may need inpatient traumatic brain injury rehabilitation center. PROPHYLAXIS: Stress ulcer prophylaxis: NA DVT prophylaxis: SCDs only will discuss with neurosurgery the addition of DVT prophylax is in that form of chemoprophylaxis. VAP: not applicable Disposition: ICU Care we'll discuss with Dr. Grullon from neurosurgery whether the patient c an be transferred out of intensive care today he is hemodynamically stable and stable from r espiratory standpoint and could definitely benefit from more rigorous physical therapy. Code Status: Full Code Primary Care Physician: PER PT NONE *Please bill 45 minutes of critical care time spent evaluating the patient, reviewing the d travis and formulating a plan exclusive of all other procedures. JENNIFER SMALL 10/15/2014 11:47 AM onversion Transaction, Provider Unknown - 10/15/2014 11:32 AM PSTFormatting of this note might be diff erent from the original. Case Management by TABITHA Sidhu at 10/15/14 1132 Author: TABITHA Sidhu Service: (none) Author Type: Boat Oar Maker Filed: 10/16/14 1251 Date of Service: 10/15/14 1132 Status: Addendum Highway Maintenance Supervisor: TABITHA Sidhu (Boat Oar Maker) Related Notes: Original Note by TABITHA Sidhu (Boat Oar Maker) filed at 10/15/14 1135 Attended morning rounds. Pt is extubated. Will need TBI rehab. Has [facility] Medicaid. Referral made to [facility] ([phone]). Faxed initial referral info and updated clinical. Await return call regarding acceptance and bed availability. onver alem Transaction, Provider Unknown - 10/15/2014 11:06 AM PST Therapy Progress Note by ИВАН Poole at 10/15/141105 Author: ИВАН Poole Service: (none) Author Type: Massage Therapist Filed: 10/15/141105 Date of Service: 10/15/141105 Status: Signed Highway Maintenance Supervisor: ИВАН Poole (Massage Therapist) 10/15/14 1100 MT Last Visit MT Received On 10/15/14 MT Therapy Visit On hold (due to temp >100F in last 24 hrs) Helen Campos MS CCC-INTELLIGENCE INTERN - 10/15/2014 8:30 AM PSTFormatting of this note might be different f rom the original. Therapy Progress Note by Helen Brian MS CFY-INTELLIGENCE INTERN at 10/15/14829 Author: MS KT Waters-INTELLIGENCE INTERN Service: (none) Author Type: Speech and Language Pa thologist Filed: 10/15/14907 Date of Service: 10/15/14829 Status: Signed Highway Maintenance Supervisor: MS KT Waters-INTELLIGENCE INTERN (Speech and Language Pathologist) 10/15/14829 Swallowing Assessment Eval Swallowing Evaluation Yes Initial Swallow Assessment Respiratory Status Room air Behavior/Cognition Cooperative;Lethargic;Requires cueing Dentition Adequate;Poor dental/oral hygiene Vision Impaired for self-feeding Patient Positioning Upright in bed Volitional Cough Weak Volitional Swallow Delayed Oral Motor Exam Labial ROM Reduced right;Reduced left Labial Symmetry Abnormal symmetry left Labial Strength Reduced Lingual ROM Reduced right;Reduced left Lingual Symmetry WFL Lingual Strength Reduced Facial Symmetry Left droop Vocal Quality Weak Consistencies Consistencies Assessed Yes Ice Chips Presentation Spoon Oral Phase WFL;Increased holding time Pharyngeal Phase Delayed swallow initiation;Decreased laryngeal elevation upon palpation Thin Presentation Spoon;Cup;Straw Oral Phase Thin Anterior Spillage Left;Increased hold time Pharyngeal Phase Delayed swallow initiated;Decreased laryngeal elevation upon palpation;Cou gh - immediate;Cough - delayed (immediate cough w/ all straw and cup trials) Roebling Presentation Cup;Spoon Oral Spillage Left;Increased Anterior to Posterior Transit Pharyngeal Phase Delayed swallow initiated;Decreased laryngeal elevation upon palpation;Cou gh - delayed (delayed cough in 2/6 trials by cup, no cough by spoon) Puree Presentation Spoon Oral Phase Increased oral holding time Pharyngeal Delayed Swallow;Decreased Laryngeal Elevation;Spontaneous double swallow Recommendations Liquids Consistency Recommendations Roebling thick;Ice chips for oral comfort (NO STRAWS) Diet Consistency Recommendation Pureed (1 Puree Snack 3-4 times per day) Recommendations Dysphagia treatment;1:1 supervision;Feeding assist;Set up with meals;Check on patients frequently throught out meals Risk for Aspiration Moderate Compensatory Swallowing Strategies Upright as possible for all oral intake;Remain upright f or 30 minutes after meals;Alternate solids and liquids;Slow rate presentation;Swallow 2 time s per bite/sip;No straws;Small bites/sips;Eat/feed slowly;Check for pocketing Recommended Form of Meds Meds floated in puree;With puree (crush or cut large pills, float in puree) Summary Pt demonstrated observable signs of aspiration with thin liquid trials, immediate c ough w/ all straw (3/3) and cup trials (3/3). Immediate cough in 2/6 trials of thin by spoon . Delayed cough in 2/6 trials of nectar thick liquid by cup. Pt has oral weakness characteri zed by difficulty holding bolus without anterior spillage. Pt tolerated all nectar thick liq uid and puree trials by spoon without observable s/sx of aspiration. Recommend nectar thick liquid by spoon only, NO STRAWS, and 1 puree snack item, 3-[address] to follow. Staff Notified MD;RN Plan of Care Treatment Plan ST to follow;Dysphagia treatment;Daily 4 to 6 times a week Follow up treatments Diet tolerance monitoring;Patient/Family education;Assessment for upgr khadijah Dysphagia Goals Assisted Goals Safe/efficient oral intake;Advanced diet Pt will have safe/efficient oral intake Roebling thick liquids;Puree diet;New/revised goal Pt will advanced diet in 3 days;New/revised goal Short Term Goals Tolerate diet upgrade trials Pt will tolerate diet upgrade trials With 1:1 supervision;New/revised goal onversio n Transaction, Provider Unknown - 10/14/2014 4:48 PM PSTFormatting of this note might be di fferent from the original. Progress Notes by Massiel Stovall RN at 10/14/14 1457 Author: Massiel Stovall RN Service: (none) Author Type: Registered Nurse Filed: 10/14/14 1650 Date of Service: 10/14/14 1648 Status: Signed Highway Maintenance Supervisor: Massiel Stovall RN (Registered Nurse) Phoned Pt mom, gave her update regarding his progress, and the extubation that took place. I also explained the potential need to replace, but explained we will do all we can to diego p that from happening. She was grateful and seemed to understand. onver alem Transaction, Provider Unknown - 10/14/2014 2:12 PM PST Progress Notes by Maria Teresa Castillo RN at 10/14/14 1412 Author: Maria Teresa Castilol RN Service: (none) Author Type: Registered Nurse Filed: 10/14/14 1413 Date of Service: 10/14/14 1412 Status: Signed Highway Maintenance Supervisor: Maria Teresa Castillo RN (Registered Nurse) No need for PICC line at time. Time. Informed KEYSHAWN Monzon to reorder if needed. Mary Raygoza RN to change IV today. MARIA TERESA CASTILLO RN rian k, JENNIFER Arango - 10/14/2014 12:33 PM PSTFormatting of this note might be different f rom the original. Progress Notes by JENNIFER Small at 10/14/14 1233 Author: JENNIFER Small Service: Conductor And Engineer Author Type: Conductor And Engineer Filed: 10/14/14 1316 Date of Service: 10/14/14 1233 Status: Signed Highway Maintenance Supervisor: JENNIFER Small (Nurse Practitioner) [facility] Service: Conductor And Engineer Progress Note Tony Devika 53 y.o. Date of Admission: 10/11/2014 Treatment Team: Consulting Physician: Anila Delgado MD Admitting Provider: Harika Apodaca MD CHIEF COMPLAINT: severe TBI, large right SDH with massive midline shift, IC hypertension HISTORY OF PRESENT ILLNESS The patient is a 53 y.o. male with significant past medical history of chronic alcohol abus e and multiple falls. Per ED report from [facility]: he was drinking earlier today at home and fell twice. He went to bed and then he was noted to be having what they thought was seizure activity and th ey could not wake him and called EMS. He was taken to the ED at [facility] in [place] a nd then transferred to the ED here for emergent neurosurgical evaluation for large acute rig ht SDH with 2 cm midline shift. He was admitted to the ICU post-op craniectomy and yosef drains x2. by Dr. Delgado still intu bated and comatose off sedation with intermittent decerebrate posturing but has cough and co rneal reflexes. ICU Time Line: 10/11/2014: Decompressive Craniectomy on right for SDH GCS 4 10/12/2014: Patients neurologic examination continues to improve woke up and was able to f ollow commands by wiggling the tip of his right thumb and left foot. 10/13/2014: Patients neurologic exam continues to improve. Had an episode of flash pulmonar y edema with HTN and tachycardia. Diuresed. Overnight Events: No events. Persists with positive neurologic examination. PAST MEDICAL HISTORY Past Medical History Diagnosis Date Alcohol abuse Frequent falls Drug abuse PAST SURGICAL HISTORY Past Surgical History Procedure Laterality Date No past surgeries Craniotomy Right 10/11/2014 Procedure: CRANIOTOMY - FOR BLEED; Surgeon: Anila Delgado MD; Location: [facility] IN OR; Service: Neurosurgery; Laterality: Right; Craniectomy Right 10/11/2014 Procedure: CRANIECTOMY; Surgeon: Anila Delgado MD; Location: [facility] OR; Ser vice: Neurosurgery; Laterality: Right; ALLERGIES Allergies Allergen Reactions Penicillins Other (See Comments) Unknown MEDICATIONS PRIOR TO ADMISSION No prescriptions prior to admission SCHEDULED MEDICATIONS chlorhexidine gluconate 15 mL Mouth/Throat Q12H docusate sodium 100 mg Oral BID Or docusate 100 mg Per OG Tube BID famotidine 20 mg Oral BID Or famotidine 20 mg Intravenous BID folic acid (FOLVITE) IVPB 1 mg Intravenous Daily furosemide 40 mg Intravenous BID levETIRAcetam 1,000 mg Intravenous Q12H lidocaine buffered 1% 0.5 mL Intradermal Once sodium chloride 0.9 % 10 mL Intravenous Q12H MONICA thiamine (VITAMIN B1) IVPB 100 mg Intravenous Q24H CONTINUOUS INFUSIONS dexmedetomidine in NS 0.3 mcg/kg/hr (10/14/14 1109) sodium chloride (IV) 150 mL/hr at 10/13/14 0117 FAMILY HISTORY OF SIGNIFICANCE No family history on file. SOCIAL HISTORY History Social History Marital Status: Spouse Name: N/A Number of Children: N/A Years of Education: N/A Occupational History Not on file. Social History Main Topics Smoking status: Current Every Day Smoker Types: Cigarettes Smokeless tobacco: Not on file Alcohol Use: Yes Comment: several large malt beers daily when he binge drinks but has periods of not drin jessica Drug Use: Yes Comment: uknown but possibly methamphetamines Sexual Activity: Not on file Other Topics Concern Not on file Social History Narrative PHYSICAL EXAM VITAL SIGNS Temp: [99.1 F (37.3 C)-102.6 F (39.2 C)] 100.2 F (37.9 C) Heart Rate: [47-109] 70 Resp: [11-53] 18 BP: (77-195)/(48-102) 110/61 mmHg Arterial Line BP: (209)/(209) 209/209 mmHg FiO2 : [28 %-98 %] 30 % Intake/Output Summary (Last 24 hours) at 10/14/14 1233 Last data filed at 10/14/14 1200 Gross per 24 hour Intake 2764 ml Output 2980 ml Net -216 ml EXAM GEN: Patient is arousable sitting up in bed on mechanical ventilation, no acute distress. NEURO: Mental Status: Eyes open to voice patient nods his head appropriately to questions. CN: corneals present, right pupil 6 mm and reactive, left pupils 4 mm and reactive. Motor: Able to move upper extremity to commands equally. Right LE weak. General strengt hs are weak. Lifts head up off bed but very weakly. Sensory: Intact HEENT: right scalp stapled and dressed, YOSEF drains x2, sclerae clear, nonicteric, oral mmm, pink, no exudates, OGT, ETT in place NECK: supple, trachea midline, supple HEART: RRR, S1/S2, no murmur, rub or gallop LUNGS: clear b/l with minimal upper airway rhonchi, no wheezing, crackles ABD: soft, nondistended, no masses EXTR: no edema, clubbing or cyanosis SKIN: warm, dry, no rash or mottling; no e/o skin breakdown over the occiput, scapulae, elb ows, sacrum or heels LINES/TUBES: PIVs, daniels cath, left radial [place] DATA Recent Labs Lab 10/14/1441410/13/1424610/12/14304 WBC 9.8 7.1 9.1 HGB 9.7* 9.7* 11.1* HCT 29.4* 29.8* 33.5* PLT 124* 107* 138* NEUTOPHILPCT 81.9 78.6 79.3 MONOPCT 9.3 11.3 12.1 Recent Labs Lab 10/14/1441410/13/14 18110/13/1424610/12/1430410/11/[id number]/11/141948 NA 136 -- 138 -- 134* -- 138 K 3.8 3.4* 3.4* < > 2.8* -- 2.7* CL 109 -- 112* -- 105 -- 102 CO2 22* -- 19* -- 23 -- 25 BUN 9 -- 5* -- 7* -- 7* CREATININE 0.50* -- 0.47* -- 0.57* -- 0.68* PROT -- -- -- -- -- 6.3 -- BILITOT -- -- -- -- -- 1.6* -- ALT -- -- -- -- -- 54 -- AST -- -- -- -- -- 61* -- < > = values in this interval not displayed. Recent Labs Lab 10/12/14 [address] Head Without Contrast 10/14/2014 1. Unchanged position of the right scalp drain with interval development of ed wilian in the extracranial soft tissues posterior to the drains. These findings may be related to the patient's volume status although infection is not excluded. Clinical correlation is r ecommended. 2. Decreased conspicuity of acute subdural hematoma along the right tentorial le af. 3. Decreased right to left subfalcian herniation from 14 mm to 9 mm. 4. No interval hemo rrhage. RADIA Electronically signed by Ida Lawton MD on Oct 14 2014 5:24AM Refe rring Provider Line: [phone] ID: [id number] Xr Chest 1 View 10/14/2014 1. Tubes and lines in expected positions. 2. Improving bilateral vascular con gestion and atelectasis. X-ray Chest 1 View 10/13/2014 1. Stable position of endotracheal and nasogastric tubes. 2. No new consolida tion. Xr Ct Portable Head Unenhanced 10/11/2014 1. Post evacuation of the subdural hematoma and wide right frontotemporal deco mpression, with expected surgical changes, pneumocephalus and drain. 2. Significant mass ef fect and edema remains, but there are some anatomic improvements as above. 3. The significa nt majority of the subdural collection has been evacuated, with some residual about the tent orium LEM LIST Principal Problem: Traumatic brain injury, closed Active Problems: Alcohol abuse Frequent falls Comatose Seizure ASSESSMENT & PLAN NEURO: Severe TBI with large R SDH and MLS: s/p craniectomy. Patient continues to have remarka ble exam today with the patient following commands moving bilateral upper extremities. Prevention: Seizure cont Keppra. Alcohol withdrawal monitoring: not showing signs of DT's on Precedex infusion. CV: HTN: prn labetalol and hydralazine for SBP>160. Do not need to titrate to CPP as skull o ff but will allow mild HTN for perfusion. PULM: Acute respiratory failure: SBT and extubation vs trach depending on ability to manage a irway. Currently on ASV mode of ventilation with minimal FiO2. GI/NUTRITION: Nutrition: Started tube feedings. RENAL/LYTES: Normal renal function: diuresing today due to fluid overload. ID: No infections: Pro calcitonin 0.01. WBC normal. Intermittent fevers could be due to brai n injury. CXR without infiltrate. Only positive finding was purulent sputum. Will continue to monitor HEME: Mild anemia of acute hemorrhage but also poss due to chronic ds from ETOH abuse. No prio r CBC. ENDO: No issues. Glucose wnl. MUSC/SKIN: No issues PROPHYLAXIS: Stress ulcer prophylaxis: Pepcid DVT prophylaxis: SCDs only consider heparin at 72 hours post op. VAP: chlorhexadine oral care and HOB > 30 degrees Disposition: ICU Care Code Status: Full Code Primary Care Physician: PER PT NONE *Please bill 45 minutes of critical care time spent evaluating the patient, reviewing the d travis and formulating a plan exclusive of all other procedures. JENNIFER SMALL 10/14/2014 12:33 PM onversion Transaction, Provider Unknown - 10/14/2014 6:45 AM PSTFormatting of this note might be diff erent from the original. Progress Notes by Sophy Vargas RPH at 10/14/14644 Author: Sophy Vargas RPH Service: (none) Author Type: Pharmacist Filed: 10/14/14644 Date of Service: 10/14/14644 Status: Signed Highway Maintenance Supervisor: Sophy Vargas RPH (Pharmacist) Day 2 Vanco Tx Todays Scr= 0.5, WBC= 9.8 with estim CrCl= 198.3 ml/min Vanco Tr prior to 4th dose 10/15/14 Pharmacist: SOPHY VARGAS 10/14/2014 6:45 AM > onver alem Transaction, Provider Unknown - 10/13/2014 9:00 PM PST Progress Notes by Glenys Aguila RPH at 10/13/142099 Author: Glenys Aguila RPH Service: (none) Author Type: Pharmacist Filed: 10/13/142099 Date of Service: 10/13/142099 Status: Signed Highway Maintenance Supervisor: Glenys Aguila RPH (Pharmacist) Clinical Pharmacy Note: Pharmacy Dosing Vancomycin; Day 1 Jimenezrobert Fortune 53 y.o. male Ht Readings from Last 1 Encounters: 10/12/14 1.778 m (5' 10") Wt Readings from Last 1 Encounters: 10/13/14 98.1 kg (216 lb 4.3 oz) CREATININE: 0.47 mg/dL ABNORMAL (10/13/14 0247) Estimated creatinine clearance - 210.9 mL/min WBC Date Value Range Status 10/13/2014 7.1 3.8 - 11.0 K/uL Final Testing performed at [facility] [address], [address] [place] [address] INDICATION: CAP Will begin Vancomycin 1750 mg (17.8 mg/kg) IV Q12H. Level due 10/15 at 0900; goal 15 to 20 mcg/ml. Pharmacy will continue to monitor for changes in renal function and adjust accordingly. Glenys Aguila, [facility] 10/13/2014 9:00 PM onver alem Transaction, Provider Unknown - 10/13/2014 4:37 PM PST Progress Notes by Massiel Stovall RN at 10/13/14 1637 Author: Massiel Stovall RN Service: (none) Author Type: Registered Nurse Filed: 10/13/14 1637 Date of Service: 10/13/14 163 Status: Signed Highway Maintenance Supervisor: Massiel Stovall RN (Registered Nurse) Pulmonary edema in process of resolving. tAnila rodriguez MD - 10/13/2014 4:04 PM PSTFormatting of this note might be different from t he original. Progress Notes by Anila Delgado MD at 10/13/14 1608 Author: Anila Delgado MD Service: Neurosurgery Author Type: Physician Filed: 10/13/14 1607 Date of Service: 10/13/14 160 Status: Signed Highway Maintenance Supervisor: Anila Delgado MD (Physician) [facility] Service: Neurosurgery Progress Note Hospital Day: LOS: 2 days Post-Op Day: 2 Days Post-Op SUBJECTIVE Patient Summary: Events Overnight: POD 2. Continues to follow commands Scheduled Medications chlorhexidine gluconate 15 mL Mouth/Throat Q12H docusate sodium 100 mg Oral BID Or docusate 100 mg Per OG Tube BID famotidine 20 mg Oral BID Or famotidine 20 mg Intravenous BID folic acid (FOLVITE) IVPB 1 mg Intravenous Daily furosemide 40 mg Intravenous Once levETIRAcetam 1,000 mg Intravenous Q12H lidocaine buffered 1% 0.5 mL Intradermal Once sodium chloride 0.9 % 10 mL Intravenous Q12H MONICA thiamine (VITAMIN B1) IVPB 100 mg Intravenous Q24H Continuous Infusions dexmedetomidine in NS 0.4 mcg/kg/hr (10/13/14 0938) sodium chloride (IV) 150 mL/hr at 10/13/14 0117 PRN Medications acetaminophen, acetaminophen OR acetaminophen, hydrALAZINE, labetalol, lip moisturizer, magnesium sulfate OR magnesium sulfate OR magnesium sulfate OR magnesium sulfat e, morphine OR morphine OR morphine, nystatin, nystatin, ondansetron OR ondanset gildardo, pancrelipase ([id number]) 10,000 units, petrolatum, phosphorus OR sodium phospha te IVPB 20 mmol OR sodium phosphate IVPB 45 mmol, polyethylene glycol potassium chloride OR potassium chloride OR potassium chloride, sodium bicarbonate, sodium chloride 0.9 % OBJECTIVE Vital Signs: BP 132/74 | Pulse 76 | Temp(Src) 102.6 F (39.2 C) (Bladder) | Resp 20 | Ht 1.778 m (5' 10") | Wt 98.1 kg (216 lb 4.3 oz) | BMI 31.03 kg/m2 | SpO2 97% Temp: [99 F (37.2 C)-102.6 F (39.2 C)] 102.6 F (39.2 C) (10/13 1599) BP: (95-139)/(52-81) 132/74 mmHg (10/13 1599) Heart Rate: [54-89] 76 (10/13 1599) Resp: [12-24] 20 (10/13 1599) SpO2: [97 %-100 %] 97 % (10/13 1599) Height: [177.8 cm (5' 10")] 177.8 cm (5' 10") (10/12 1900) Weight: [98.1 kg (216 lb 4.3 oz)] 98.1 kg (216 lb 4.3 oz) (10/13 0430) FiO2 : [28 %-60 %] 60 % (10/13 1600) Exam deferred, observed following for nursing Likely episode of mucus plugging vs pulm edema DATA PROBLEM LIST Principal Problem: Traumatic brain injury, closed Active Problems: Alcohol abuse Frequent falls Comatose Seizure ASSESSMENT & PLAN Continue medical management Would like to repeat a head ct Wednesday evening after the drains are removed If stable then could consider working towards extubation Disposition: icu Code Status: Full Code Anila Delgado II, MD 10/13/2014 onversion Trans action, Provider Unknown - 10/13/2014 3:30 PM PST Progress Notes by Massiel Stovall RN at 10/13/14 1530 Author: Massiel Stovall RN Service: (none) Author Type: Registered Nurse Filed: 10/13/14 1636 Date of Service: 10/13/14 1530 Status: Signed Highway Maintenance Supervisor: Massiel Stovall RN (Registered Nurse) Pt went into flash pulmonary edema, And DIRECTOR DIVERSITY at bed side. Shania Howard ARNP - 10/13/2014 2:57 PM PSTFormatting of this note might be different f rom the original. Progress Notes by JENNIFER Small at 10/13/14 0327 Author: JENNIFER Small Service: Conductor And Engineer Author Type: Conductor And Engineer Filed: 10/13/14 1510 Date of Service: 10/13/14 8947 Status: Signed Highway Maintenance Supervisor: JENNIFER Small (Nurse Practitioner) [facility] Service: Conductor And Engineer Progress Note Tony Fortune 53 y.o. Date of Admission: 10/11/2014 Treatment Team: Consulting Physician: Anila Delgado MD Admitting Provider: Harika Apodaca MD CHIEF COMPLAINT: severe TBI, large right SDH with massive midline shift, IC hypertension HISTORY OF PRESENT ILLNESS The patient is a 53 y.o. male with significant past medical history of chronic alcohol abus e and multiple falls. Per ED report from [facility]: he was drinking earlier today at home and fell twice. He went to bed and then he was noted to be having what they thought was seizure activity and th ey could not wake him and called EMS. He was taken to the ED at [facility] in [place] a nd then transferred to the ED here for emergent neurosurgical evaluation for large acute rig ht SDH with 2 cm midline shift. He was admitted to the ICU post-op craniectomy and yosef drains x2. by Dr. Delgado still intu bated and comatose off sedation with intermittent decerebrate posturing but has cough and co rneal reflexes. ICU Time Line: 10/11/2014: Decompressive Craniectomy on right for SDH GCS 4 10/12/2014: Patients neurologic examination continues to improve woke up and was able to f ollow commands by wiggling the tip of his right thumb and left foot Overnight Events: No events persists with positive neurologic examination. PAST MEDICAL HISTORY Past Medical History Diagnosis Date Alcohol abuse Frequent falls Drug abuse PAST SURGICAL HISTORY Past Surgical History Procedure Laterality Date No past surgeries Craniotomy Right 10/11/2014 Procedure: CRANIOTOMY - FOR BLEED; Surgeon: Anila Delgado MD; Location: [facility] IN OR; Service: Neurosurgery; Laterality: Right; Craniectomy Right 10/11/2014 Procedure: CRANIECTOMY; Surgeon: Anila Delgado MD; Location: [facility]; Ser vice: Neurosurgery; Laterality: Right; ALLERGIES Allergies Allergen Reactions Penicillins Other (See Comments) Unknown MEDICATIONS PRIOR TO ADMISSION No prescriptions prior to admission SCHEDULED MEDICATIONS chlorhexidine gluconate 15 mL Mouth/Throat Q12H docusate sodium 100 mg Oral BID Or docusate 100 mg Per OG Tube BID famotidine 20 mg Oral BID Or famotidine 20 mg Intravenous BID folic acid (FOLVITE) IVPB 1 mg Intravenous Daily levETIRAcetam 1,000 mg Intravenous Q12H lidocaine buffered 1% 0.5 mL Intradermal Once sodium chloride 0.9 % 10 mL Intravenous Q12H MONICA thiamine (VITAMIN B1) IVPB 100 mg Intravenous Q24H CONTINUOUS INFUSIONS dexmedetomidine in NS 0.4 mcg/kg/hr (10/13/14 2395) sodium chloride (IV) 150 mL/hr at 10/13/14 0117 FAMILY HISTORY OF SIGNIFICANCE No family history on file. SOCIAL HISTORY History Social History Marital Status: Spouse Name: N/A Number of Children: N/A Years of Education: N/A Occupational History Not on file. Social History Main Topics Smoking status: Current Every Day Smoker Types: Cigarettes Smokeless tobacco: Not on file Alcohol Use: Yes Comment: several large malt beers daily when he binge drinks but has periods of not drin jessica Drug Use: Yes Comment: uknown but possibly methamphetamines Sexual Activity: Not on file Other Topics Concern Not on file Social History Narrative PHYSICAL EXAM VITAL SIGNS Temp: [98.6 F (37 C)-100.4 F (38 C)] 99.7 F (37.6 C) Heart Rate: [55-89] 62 Resp: [12-24] 20 BP: (95-139)/(52-81) 125/75 mmHg Arterial Line BP: (102-209)/(51-209) 209/209 mmHg FiO2 : [28 %-30 %] 28 % Intake/Output Summary (Last 24 hours) at 10/13/14 1457 Last data filed at 10/13/14 1200 Gross per 24 hour Intake 5134 ml Output 1968 ml Net 3166 ml EXAM GEN: Patient is arousable sitting up in bed on mechanical ventilation, no acute distress. NEURO: Mental Status: Eyes open to voice patient nods his head appropriately to questions. CN: corneals present, right pupil 6 mm and reactive, left pupils 4 mm and reactive. Motor: Able to upper extremity and lower extremities to commands equally. Strengths are we ak. Lifts head up off bed but very weakly. Sensory: December 20 stents touch to face or to UE's. HEENT: right scalp depressed, wound stapled and dressd, sclerae clear, nonicteric, oral mmm , pink, no exudates, OGT, ETT in place NECK: supple, trachea midline, supple HEART: RRR, S1/S2, no murmur, rub or gallop LUNGS: clear b/l with minimal upper airway rhonchi, no wheezing, crackles ABD: soft, nondistended, no masses EXTR: no edema, clubbing or cyanosis SKIN: warm, dry, no rash or mottling; no e/o skin breakdown over the occiput, scapulae, elb ows, sacrum or heels LINES/TUBES: PIVs, daniels cath, left radial Silvia DATA Recent Labs Lab 10/13/14 0247 10/12/14 0305 10/11/14 2245 WBC 7.1 9.1 9.7 HGB 9.7* 11.1* 10.9* HCT 29.8* 33.5* 34.9* PLT 107* 138* 164 NEUTOPHILPCT 78.6 79.3 72.3 MONOPCT 11.3 12.1 13.4 Recent Labs Lab 10/13/14 0247 10/12/14 1748 10/12/14 0305 10/11/14 2237 10/11/14 1949 NA 138 -- 134* -- 138 K 3.4* 3.5 2.8* -- 2.7* CL 112* -- 105 -- 102 CO2 19* -- 23 -- 25 BUN 5* -- 7* -- 7* CREATININE 0.47* -- 0.57* -- 0.68* PROT -- -- -- 6.3 -- BILITOT -- -- -- 1.6* -- ALT -- -- -- 54 -- AST -- -- -- 61* -- Recent Labs Lab 10/12/14 0939 INR 1.1 IMAGING X-ray Chest 1 View 10/13/2014 1. Stable position of endotracheal and nasogastric tubes. 2. No new consolida tion. Xr Ct Portable Head Unenhanced 10/11/2014 1. Post evacuation of the subdural hematoma and wide right frontotemporal deco mpression, with expected surgical changes, pneumocephalus and drain. 2. Significant mass ef fect and edema remains, but there are some anatomic improvements as above. 3. The significa nt majority of the subdural collection has been evacuated, with some residual about the tent orium LEM LIST Principal Problem: Traumatic brain injury, closed Active Problems: Alcohol abuse Frequent falls Comatose Seizure ASSESSMENT & PLAN NEURO: Severe TBI with large R SDH and MLS: s/p craniectomy. Patient continues to have remarka ble exam today with the patient following commands moving bilateral upper extremities. Prevention: Seizure cont Keppra Alcohol withdrawal monitoring: not showing signs of DT's. CV: HTN: prn labetalol and hydralazine for SBP>160. Do not need to titrate to CPP as skull o ff but will allow mild HTN for perfusion. PULM: Acute respiratory failure: SBT and extubation vs trach depending on ability to manage a irway. Currently on ASV mode of ventilation with minimal FiO2. GI/NUTRITION: Nutrition: Starting tube feedings. RENAL/LYTES: Normal renal function: UO not what would be expected after receiving mannitol in ED. Grisel howell dehydrated from alcohol intoxication. NS decreased to 75ml/hr. ID: No infections HEME: Mild anemia of acute hemorrhage but also poss due to chronic ds from ETOH abuse. No prio r CBC. ENDO: No issues. Glucose wnl. MUSC/SKIN: No issues PROPHYLAXIS: Stress ulcer prophylaxis: Pepcid DVT prophylaxis: SCDs only consider heparin at 72 hours post op. VAP: chlorhexadine oral care and HOB > 30 degrees Disposition: ICU Care Code Status: Full Code Primary Care Physician: PER PT NONE *Please bill 45 minutes of critical care time spent evaluating the patient, reviewing the d travis and formulating a plan exclusive of all other procedures. JENNIFER SMALL 10/13/2014 2:57 PM onversion Transaction, Provider Unknown - 10/13/2014 4:43 AM PSTFormatting of this note might be diff erent from the original. Progress Notes by Mikki Jules RRT at 10/13/14442 Author: Mikki Jules RRT Service: (none) Author Type: Registered Respiratory Therapi st Filed: 10/13/14446 Date of Service: 10/13/14442 Status: Signed Highway Maintenance Supervisor: Mikki Jules RRT (Registered Respiratory Therapist) RT Note: Nursing request spontaneous breathing trial. Pt occasionally take a breath or two above MV settings. Nursing withdrew all sedation medications. Trial of PSV 06/27 with absolut valarie no spontaneous respirations observed and back up mode continuously triggered on. Pt retu rned to previous settings; nursing at bedside during observations. Harika Jones MD - 10/12/2014 8:16 PM PSTFormatting of this note might be different from the madelin ginal. Progress Notes by Harika Apodaca MD at 10/12/142015 Author: Harika Apodaca MD Service: Conductor And Engineer Author Type: Conductor And Engineer Filed: 10/12/142026 Date of Service: 10/12/142015 Status: Signed Highway Maintenance Supervisor: Harika Apodaca MD (Physician) [facility] Service: Conductor And Engineer Progress Note Tony Fortune 53 y.o. Date of Admission: 10/11/2014 Reason for Consultation: comanagement of severe TBI, mechanical ventilation Requesting Physician: Dr. Bhandari and Dr. Delgado, Emergency Department and Neurosurgery History Obtained From: chart review, Reason patient could not give history: comatose, sev ere TBI CHIEF COMPLAINT: severe TBI, large right SDH with massive midline shift, IC hypertension HISTORY OF PRESENT ILLNESS The patient is a 53 y.o. male with significant past medical history of chronic alcohol abus e and multiple falls. Per ED report from [facility]: he was drinking earlier today and fe ll twice. He went to bed and then he was noted to be having what they thought was seizure ac tivity and they could not wake him and called EMS. He was taken to the ED at [facility] i n [place] and then transferred to the ED here for emergent neurosurgical evaluation for la rge acute right SDH with 2 cm midline shift. He went to the OR from the ED after Dr. Delgado discussed the findings and risks, prognosi s with his family. None of them were with him when this happened and they cannot very the hi story of presentation and do not know his medical history very well but they only know of al cohol abuse, falls and possible drug abuse. He was admitted to the ICU post-op intubated and comatose off sedation with intermittent de cerebrate posturing but has cough and corneal reflexes. Dr. Delgado did a decompressive hem icraniectomy with evacuation of the large hematoma and left the right skull off with no drai n placed. ICU Time Line: 10/11/2014: Decompressive Craniectomy on right for SDH GCS 4 Overnight Events: Post surgery despite a lot of MLS still noted on the scan the patient wo ke up and was able to follow commands by wiggling the tip of his right thumb and left foot. PAST MEDICAL HISTORY Past Medical History Diagnosis Date Alcohol abuse Frequent falls Drug abuse PAST SURGICAL HISTORY Past Surgical History Procedure Laterality Date No past surgeries Craniotomy Right 10/11/2014 Procedure: CRANIOTOMY - FOR BLEED; Surgeon: Anila Delgado MD; Location: [facility] IN OR; Service: Neurosurgery; Laterality: Right; Craniectomy Right 10/11/2014 Procedure: CRANIECTOMY; Surgeon: Anila Delgado MD; Location: [facility]; Ser vice: Neurosurgery; Laterality: Right; ALLERGIES Allergies Allergen Reactions Penicillins Other (See Comments) Unknown MEDICATIONS PRIOR TO ADMISSION No prescriptions prior to admission SCHEDULED MEDICATIONS chlorhexidine gluconate 15 mL Mouth/Throat Q12H docusate sodium 100 mg Oral BID Or docusate 100 mg Per OG Tube BID famotidine 20 mg Oral BID Or famotidine 20 mg Intravenous BID [START ON 10/13/2014] folic acid (FOLVITE) IVPB 1 mg Intravenous Daily levETIRAcetam 1,000 mg Intravenous Q12H thiamine (VITAMIN B1) IVPB 100 mg Intravenous Q24H CONTINUOUS INFUSIONS sodium chloride (IV) 150 mL/hr at 10/12/14 1152 FAMILY HISTORY OF SIGNIFICANCE No family history on file. SOCIAL HISTORY History Social History Marital Status: Spouse Name: N/A Number of Children: N/A Years of Education: N/A Occupational History Not on file. Social History Main Topics Smoking status: Current Every Day Smoker Types: Cigarettes Smokeless tobacco: Not on file Alcohol Use: Yes Comment: several large malt beers daily when he binge drinks but has periods of not drin jessica Drug Use: Yes Comment: uknown but possibly methamphetamines Sexual Activity: Not on file Other Topics Concern Not on file Social History Narrative PHYSICAL EXAM VITAL SIGNS Temp: [98.1 F (36.7 C)-102.4 F (39.1 C)] 99 F (37.2 C) Heart Rate: [54-89] 77 Resp: [12-29] 17 BP: (87-118)/(53-85) 117/68 mmHg Arterial Line BP: (92-177)/(46-85) 131/70 mmHg FiO2 : [30 %-82 %] 30 % Intake/Output Summary (Last 24 hours) at 10/12/142015 Last data filed at 10/12/14 1700 Gross per 24 hour Intake 6297 ml Output 2260 ml Net 4037 ml EXAM GEN: Follows commands with wiggling his right thumb to command NEURO: Mental Status: Eyes open to voice CN: corneals present, right pupil 6 mm and reactive, left pupils 4 mm and reactive. Motor: Able to grinder machine knife setter RUE to command and left LE to command Sensory feels touch to face or to UE's. HEENT: right scalp caved in, wound stapled and dressd, sclerae clear, nonicteric, oral mmm, pink, no exudates, OGT, ETT in place NECK: supple, trachea midline, supple HEART: RRR, S1/S2, no murmur, rub or gallop LUNGS: clear b/l with minimal upper airway rhonchi, no wheezing, crackles ABD: soft, nondistended, no masses EXTR: no edema, clubbing or cyanosis SKIN: warm, dry, no rash or mottling; no e/o skin breakdown over the occiput, scapulae, elb ows, sacrum or heels LINES/TUBES: PIVs, daniels cath, left radial Silvia DATA Recent Labs Lab 10/12/14 03010/11/14 2245 WBC 9.1 9.7 HGB 11.1* 10.9* HCT 33.5* 34.9* PLT 138* 164 NEUTOPHILPCT 79.3 72.3 MONOPCT 12.1 13.4 Recent Labs Lab 10/12/14 1748 10/12/14 0305 10/11/14 2237 10/11/14 1949 NA -- 134* -- 138 K 3.5 2.8* -- 2.7* CL -- 105 -- 102 CO2 -- 23 -- 25 BUN -- 7* -- 7* CREATININE -- 0.57* -- 0.68* PROT -- -- 6.3 -- BILITOT -- -- 1.6* -- ALT -- -- 54 -- AST -- -- 61* -- Recent Labs Lab 10/12/14 0939 INR 1.1 IMAGING 1. Endotracheal tube and enteric tube in radiographically appropriate positions 2. Some coarsening of midlung field markings, more so on the left. A subtle perihilar infil trate would be difficult to exclude, but also consider atelectasis LEM LIST Principal Problem: Traumatic brain injury, closed Active Problems: Alcohol abuse Frequent falls Comatose Seizure ASSESSMENT & PLAN NEURO: Severe TBI with large R SDH and MLS: s/p craniectomy. Remarkable exam today with the pa shirley following commands moving his right thumb and left foot to command Prevention: Seizure cont Keppra Alcohol withdrawal monitoring: CV: HTN: prn labetalol and hydralazine for SBP>160. Do not need to titrate to CPP as skull o ff but will allow mild HTN for perfusion. PULM: Acute respiratory failure: SBT and extubation vs trach depending on ability to manage a irway GI/NUTRITION: Nutrition: Start tube feedings RENAL/LYTES: Normal renal function, UO not what would be expected after receiving mannitol in ED. Lik valarie dehydrated from alcohol intoxication. NS at 150/hr. ID: No infections HEME: Mild anemia of acute hemorrhage but also poss due to chronic ds from ETOH abuse. No prio r CBC. ENDO: No issues. Glucose wnl. MUSC/SKIN: No issues PROPHYLAXIS: Stress ulcer prophylaxis: Pepcid DVT prophylaxis: SCDs only consider heparin at 72 hours post op. VAP: chlorhexadine oral care and HOB > 30 degrees Disposition: ICU Care Code Status: Full Code Primary Care Physician: PER PT NONE *Please bill 45 minutes of critical care time spent evaluating the patient, reviewing the d travis and formulating a plan exclusive of all other procedures. HARIKA APODACA MD 10/12/2014 8:16 PM onversio n Transaction, Provider Unknown - 10/12/2014 3:30 PM PSTFormatting of this note might be di fferent from the original. Case Management by TABITHA Sidhu at 10/12/14 0204 Author: TABITHA Sidhu Service: (none) Author Type: Boat Oar Maker Filed: 10/12/14 5786 Date of Service: 10/12/14 1530 Status: Signed Highway Maintenance Supervisor: TABITHA Sidhu (Boat Oar Maker) Attended morning rounds. Pt is vented and admitted with TBI. No family have visited yet lissett saniya. Pt appears to be responding to some commands. He is a drinker. He reportedly has had s everal falls recently. Pt will need TBI rehab. He is from [place], [place] and [place]. If he requires LTAC h e will need to go to [facility] as [place] Medicaid is contracted with [facility] only. Will c omplete assessment when family arrives. tAnila rodriguez MD - 10/12/2014 2:04 PM PSTFormatting of this note might be different from lissett tapia original. Progress Notes by Anila Delgado MD at 10/12/14 5147 Author: Anila Delgado MD Service: Neurosurgery Author Type: Physician Filed: 10/12/14 4625 Date of Service: 10/12/14 5847 Status: Signed Highway Maintenance Supervisor: Anila Delgado MD (Physician) [facility] Service: Neurosurgery Progress Note Hospital Day: LOS: 1 day Post-Op Day: 1 Day Post-Op SUBJECTIVE Patient Summary: Events Overnight: POD 1. Postop head ct with 1.5cm mLS and signfiicant R hemispheric edema Scheduled Medications chlorhexidine gluconate 15 mL Mouth/Throat Q12H docusate sodium 100 mg Oral BID Or docusate 100 mg Per OG Tube BID famotidine 20 mg Oral BID Or famotidine 20 mg Intravenous BID [START ON 10/13/2014] folic acid (FOLVITE) IVPB 1 mg Intravenous Daily levETIRAcetam 1,000 mg Intravenous Q12H thiamine (VITAMIN B1) IVPB 100 mg Intravenous Q24H Continuous Infusions sodium chloride (IV) 150 mL/hr at 10/12/14 1152 PRN Medications acetaminophen, acetaminophen OR acetaminophen, hydrALAZINE, labetalol, lip moisturizer, magnesium sulfate OR magnesium sulfate OR magnesium sulfate OR magnesium sulfat e, nystatin, nystatin, ondansetron OR ondansetron, petrolatum, phosphorus OR sodium phosphate IVPB 20 mmol OR sodium phosphate IVPB 45 mmol, polyethylene glycol, potassium chloride OR potassium chloride OR potassium chloride OBJECTIVE Vital Signs: BP 97/54 | Pulse 60 | Temp(Src) 98.4 F (36.9 C) (Bladder) | Resp 13 | Ht 1.778 m (5' 10 ") | Wt 89.7 kg (197 lb 12 oz) | BMI 28.37 kg/m2 | SpO2 100% Temp: [98.1 F (36.7 C)-102.4 F (39.1 C)] 98.4 F (36.9 C) (10/12 1199) BP: (87-105)/(53-65) 97/54 mmHg (10/12 1199) Heart Rate: [54-89] 60 (10/12 1199) Resp: [12-29] 13 (10/12 1199) SpO2: [99 %-100 %] 100 % (10/12 1199) Height: [177.8 cm (5' 10")] 177.8 cm (5' 10") (10/11 2299) Weight: [89.7 kg (197 lb 12 oz)] 89.7 kg (197 lb 12 oz) (10/12 258) BMI (Calculated): [28.4] 28.4 (10/11 2299) FiO2 : [30 %-99 %] 30 % (10/12 1199) Moving all 4 ext. Nodding yes and no to questions Gave me a thumbs up to command DATA PROBLEM LIST Principal Problem: Traumatic brain injury, closed Active Problems: Alcohol abuse Frequent falls Comatose Seizure ASSESSMENT & PLAN Exam has improved. Head ct still with significant hemispheric swelling Maximize medical management. Disposition: icu Code Status: Full Code Anila Delgado II, MD 10/12/2014 onversion Trans action, Provider Unknown - 10/11/2014 11:50 PM PST Progress Notes by Trena Gilbert at 10/11/14 9817 Author: Trena Gilbert Service: (none) Author Type: Manager Financial Services Filed: 10/11/142351 Date of Service: 10/11/142349 Status: Signed Highway Maintenance Supervisor: Trena Gilbert (Manager Financial Services) [facility] Nayana called drill sharpener operator with request from family. When I arrived at hospital family had already left. I will leave info for morning drill sharpener operator to visit tomorrow. Chaplain Trena Gilbert onver alem Transaction, Provider Unknown - 10/11/2014 11:02 PM PST Progress Notes by Glenys Aguila RPH at 10/11/142301 Author: Glenys Aguila RPH Service: (none) Author Type: Pharmacist Filed: 10/11/142301 Date of Service: 10/11/142301 Status: Signed Highway Maintenance Supervisor: Glenys Aguila RPH (Pharmacist) Clinical Pharmacy Note: Renal Monitoring Tony Fortune 53 y.o. male Ht Readings from Last 1 Encounters: 10/11/14 1.778 m (5' 10") Wt Readings from Last 1 Encounters: 10/11/14 89.7 kg (197 lb 12 oz) CREATININE: 0.68 mg/dL ABNORMAL (10/11/14 1949) Estimated creatinine clearance - 140 mL/min Pharmacy dosing for renal function per Dr. West. Currently, there are no medications needing to be adjusted. Pharmacy will continue to monit or for changes in medication orders and in renal function and adjust accordingly. Glenys Aguila RPh 10/11/2014 11:02 PM docume nted in this encounter H&P Notes Anila Delgado MD - 10/11/2014 9:32 PM PST H&P by Anila Delgado MD at 10/11/142131 Author: Anila Delgado MD Service: Neurosurgery Author Type: Physician Filed: 10/11/142137 Date of Service: 10/11/142131 Status: Signed Highway Maintenance Supervisor: Anila Delgado MD (Physician) [facility] Service: Neurosurgery Admission History & Physical Date of Admission: 10/11/2014 Requesting Physician: [facility] Reason for Admission: Subdural hematoma History Obtained From: mother CHIEF COMPLAINT: Falls HISTORY OF PRESENT ILLNESS The patient is a 53 y.o. male with hx of etoh use and multiple falls found down by family joyce garcia today. He remains difficult to arouse. Per ems questionable seizure like activity. He was intubated at an outside facility. A head ct revealed a large acute R SDH with 2cm MLS. Transferred to [facility] for further care REVIEW OF SYSTEMS Negative except for pertinent items noted in HPI. No past medical history on file. No past surgical history on file. Immunizations: Influenza: unknown Pneumoccocal: Unknown Allergies not on file No prescriptions prior to admission No family history on file. History Social History Marital Status: Spouse Name: N/A Number of Children: N/A Years of Education: N/A Occupational History Not on file. Social History Main Topics Smoking status: Not on file Smokeless tobacco: Not on file Alcohol Use: Not on file Drug Use: Not on file Sexual Activity: Not on file Other Topics Concern Not on file Social History Narrative PHYSICAL EXAM Temp(Src) 98.7 F (37.1 C) (Axillary) On admission- GCS 4 some intermitent extensor posturing in the RUE. Pupils R 3mm L 6mm nonreactive bilaterally. No corneals, +cough, + gag DATA Head ct- 1cm sdh with 2cm MLS, basal cisterns obliterated PROBLEM LIST Active Problems: * No active hospital problems. * ASSESSMENT & PLAN Acute subdural hematoma with poor GCS -to OR for emergent decompression -seizure prophylaxis - have discussed this life threatening situation with mother and brother Disposition: Icu Code Status: No Order Primary Care Physician: PER PT NONE Anila Delgado II, MD 10/11/2014 documented in th is encounter Consult Notes Wing Lewis Argueta MD - 10/18/2014 9:03 AM PSTFormatting of this note might be different from e original. Consult* by Wing Lewis Argueta MD at 10/18/14 5254 Author: Wing Lewis Argueta MD Service: (none) Author Type: Physician Filed: 10/18/14 8856 Date of Service: 10/18/14 0903 Status: Signed Highway Maintenance Supervisor: Wing Lewis Argueta MD (Physician) [facility] Service: Physical Medicine & Rehab Initial Consult Note Date of Admission: 10/11/2014 Reason for Consultation: Consideration for IPR Requesting Physician: Conductor And Engineer History Obtained From: patient, chart review CHIEF COMPLAINT: SDH HISTORY OF PRESENT ILLNESS The patient is a 53 y.o. male with significant past medical history of chronic alcohol abus e and multiple falls. Per ED report from [facility]: he was drinking earlier today and fe ll twice. He went to bed and then he was noted to be having what they thought was seizure ac tivity and they could not wake him and called EMS. He was taken to the ED at [facility] [place] and then transferred to the ED here for emergent neurosurgical evaluation for la rge acute right SDH with 2 cm midline shift. He went to the OR from the ED after Dr. Delgado discussed the findings and risks, prognosi s with his family. None of them were with him when this happened and they cannot very the hi story of presentation and do not know his medical history very well but they only know of al cohol abuse, falls and possible drug abuse. He was admitted to the ICU post-op intubated and comatose off sedation with intermittent de cerebrate posturing but has cough and corneal reflexes. Dr. Delgado did a decompressive hem icraniectomy with evacuation of the large hematoma and left the right skull off with no drai n placed. Consultation is being requested to determine his IPR needs and potential. REVIEW OF SYSTEMS Review of Systems Patient is fairly lethargic and unable to give any meaningful answers Past Medical History Diagnosis Date Alcohol abuse Frequent falls Drug abuse Past Surgical History Procedure Laterality Date No past surgeries Craniotomy Right 10/11/2014 Procedure: CRANIOTOMY - FOR BLEED; Surgeon: Anila Delgado MD; Location: [facility] IN OR; Service: Neurosurgery; Laterality: Right; Craniectomy Right 10/11/2014 Procedure: CRANIECTOMY; Surgeon: Anila Delgado MD; Location: [facility] MAIN OR; Ser vice: Neurosurgery; Laterality: Right; Allergies Allergen Reactions Penicillins Other (See Comments) Unknown No prescriptions prior to admission Scheduled Medications docusate sodium 100 mg Oral BID Or docusate 100 mg Per OG Tube BID folic acid (FOLVITE) IVPB 1 mg Intravenous Daily heparin (porcine) 5000 unit/0.5mL 5,000 Units Subcutaneous 3 times per day levETIRAcetam 1,000 mg Intravenous Q12H QUEtiapine 25 mg Oral Nightly thiamine (VITAMIN B1) IVPB 100 mg Intravenous Q24H Continuous Infusions sodium chloride (IV) 30 mL/hr at 10/17/14 0846 PRN Medications acetaminophen, acetaminophen OR acetaminophen, hydrALAZINE, labetalol, lip moisturizer, morphine OR morphine OR morphine, nystatin, nystatin, ondansetron OR ondansetro n, polyethylene glycol No family history on file. SOCIAL HISTORy Patient apparently lives alone. PHYSICAL EXAM Vital Signs: BP 127/82 | Pulse 86 | Temp(Src) 98.3 F (36.8 C) (Oral) | Resp 18 | Ht 1.778 m (5' 10") | Wt 98.1 kg (216 lb 4.3 oz) | BMI 31.03 kg/m2 | SpO2 98% Physical Exam HEENT: Craniotomy incision intact, bone flap is out Neck: supple Lung: clear Cardiac: regular Abdo: soft ; male Rectal: Deferred MS: Appears to have right hemiparesis Neuro; quite lethargic. Does follow some commands with delayed latency. DATA PROBLEM LIST Principal Problem: Traumatic brain injury, closed Active Problems: Alcohol abuse Subdural hematoma, post-traumatic Alcohol withdrawal Debility, unspecified Difficulty in walking ASSESSMENT & PLAN the patient is a 53 year-old male s/p apparent traumatic fall with SDH. He is s/p cranioto my for evacuation with bone flap removal. He was with apparent 2-cm right sided midline roxane ft prior to surgery. This would likely explain for his apparent right hemiparesis despite b leed on the right side. The patient is quite lethargic at this point. He is not appropriat e for acute therapy assessment and treat till his helmet comes in for protection. In the dc antime, he can perform bed exercises. Patient will need PT, OT and INTELLIGENCE INTERN. He is fairly phoenix g and hopefully can make a good recovery. He would likely need aggressive IPR care. Code Status: Full Code Primary Care Physician: PER PT NONE Thank you for allowing me to participate in the care of this patient. Wing Lewis Argueta MD 10/18/2014 onversion Transaction, Provider Unknown - 10/12/2014 11:18 AM PSTFormatting of this note might be different from marylou e original. Consults by Maye Saleem RD, CD at 10/12/14 1118 Author: Maye Saleem RD, CD Service: (none) Author Type: Registered Dietitian Filed: 10/12/14 1124 Date of Service: 10/12/142 Status: Signed Highway Maintenance Supervisor: Maye Saleem RD, CD (Registered Dietitian) Consult Orders: 1. Dietitian Consult [[id number]] ordered by Liz West DO at 10/11/14 1086 Nutrition Assessment and Recommendations Assessment: Pt was admitted with traumatic right-sided SDH. POD #1 s/p right decompressive craniectomy. Currently intubated, not on any sedation. BMI: 28.37 - overweight. Pt is 119% of his IBW. Admit wt: 89.7 kg. Unable to obtain wt or diet hx at this time as there is no family in the room, however pt r eportedly has a hx of ETOH abuse. Nutritionally pertinent labs: BG 143-163, no insulin required as of yet. Na 134 (L), K+ 2.8 (L), electrolyte replacement protocol ordered. BUN and Cr also noted to be low. Nutrition-focused physical findings: No pressure ulcers or non-healing wounds noted. OG tub e is in place. Current intake: NPO. On IV fluids of NS at 150 mL/hr. Receiving folic acid and thiamine supplementation. Estimated needs: Kcal: 1785-8230 kcal/day (30-35 kcal/kg admit wt) Protein: 134-179 g protein/day (1.5-2 g protein/kg admit wt) Nutrition Diagnosis: Inadequate oral intake related to inability to eat with mechanical ventilation and increase d kcal/protein requirements for healing and recovery as evidenced by NPO order and TBI. Intervention: If TF is indicated, recommend Pivot 1.5 with goal rate of 90 mL/hr. Assuming 20-hour/day co ntinuous delivery, this will provide 2700 kcal, 169 g protein, 1800 mL total volume, and 136 6 mL free water which supplies 30 kcal/kg and 1.9 g protein/kg. Goals: Pt will tolerate TF at goal rate. EN will be adequate to meet pt's estimated nutritional re quirements. Recommendations: 1) Once TF is indicated, recommend Pivot 1.5 with goal rate of 90 mL/hr. Monitoring: Will follow up in 3 days or as indicated. Maye Saleem RD, CD, CNSC 10/12/2014 Dale gomes Liz Tabitha - 10/11/2014 10:00 PM PST Consults by Liz West DO at 10/11/142199 Author: Liz West DO Service: (none) Author Type: Conductor And Engineer Filed: 10/11/14 5820 Date of Service: 10/11/142199 Status: Signed Highway Maintenance Supervisor: Liz West DO (Physician) [facility] Service: Conductor And Engineer Initial Consult Note Tony Fortune 53 y.o. Date of Admission: 10/11/2014 Reason for Consultation: comanagement of severe TBI, mechanical ventilation Requesting Physician: Dr. Bhandari and Dr. Delgado, Emergency Department and Neurosurgery History Obtained From: chart review, Reason patient could not give history: comatose, sev ere TBI CHIEF COMPLAINT: severe TBI, large right SDH with massive midline shift, IC hypertension HISTORY OF PRESENT ILLNESS The patient is a 53 y.o. male with significant past medical history of chronic alcohol abus e and multiple falls. Per ED report from [facility]: he was drinking earlier today and fe ll twice. He went to bed and then he was noted to be having what they thought was seizure ac tivity and they could not wake him and called EMS. He was taken to the ED at [facility] and then transferred to the ED here for emergent neurosurgical evaluation for la rge acute right SDH with 2 cm midline shift. He went to the OR from the ED after Dr. Delgado discussed the findings and risks, prognosi s with his family. None of them were with him when this happened and they cannot very the hi story of presentation and do not know his medical history very well but they only know of al cohol abuse, falls and possible drug abuse. He was admitted to the ICU post-op intubated and comatose off sedation with intermittent de cerebrate posturing but has cough and corneal reflexes. Dr. Delgado did a decompressive hem icraniectomy with evacuation of the large hematoma and left the right skull off with no drai n placed. REVIEW OF SYSTEMS Review of systems not obtained due to comatose. PAST MEDICAL HISTORY Past Medical History Diagnosis Date Alcohol abuse Frequent falls Drug abuse PAST SURGICAL HISTORY Past Surgical History Procedure Laterality Date No past surgeries ALLERGIES Allergies Allergen Reactions Penicillins Other (See Comments) Unknown MEDICATIONS PRIOR TO ADMISSION No prescriptions prior to admission SCHEDULED MEDICATIONS chlorhexidine gluconate 15 mL Mouth/Throat Q12H docusate sodium 100 mg Oral BID Or docusate 100 mg Per OG Tube BID famotidine 20 mg Oral BID Or famotidine 20 mg Intravenous BID folic acid (ANTIDOTE) IVPB 50 mg Intravenous Q6H labetalol [START ON 10/12/2014] levETIRAcetam 1,000 mg Intravenous Q12H thiamine (VITAMIN B1) IVPB 100 mg Intravenous Q24H CONTINUOUS INFUSIONS sodium chloride (IV) FAMILY HISTORY OF SIGNIFICANCE No family history on file. SOCIAL HISTORY History Social History Marital Status: Spouse Name: N/A Number of Children: N/A Years of Education: N/A Occupational History Not on file. Social History Main Topics Smoking status: Current Every Day Smoker Types: Cigarettes Smokeless tobacco: Not on file Alcohol Use: Yes Comment: several large malt beers daily when he binge drinks but has periods of not drin jessica Drug Use: Yes Comment: uknown but possibly methamphetamines Sexual Activity: Not on file Other Topics Concern Not on file Social History Narrative PHYSICAL EXAM VITAL SIGNS Temp: [98.7 F (37.1 C)-101.7 F (38.7 C)] 101.7 F (38.7 C) Heart Rate: [76-77] 76 Resp: [17] 17 BP: (94)/(62) 94/62 mmHg Arterial Line BP: (121-177)/(66-85) 121/66 mmHg FiO2 : [30 %-99 %] 30 % Intake/Output Summary (Last 24 hours) at 10/11/14 1449 Last data filed at 10/11/142055 Gross per 24 hour Intake 3800 ml Output 2300 ml Net 1500 ml EXAM GEN: intubated, NO sedation, eyes closed with occasional decerebrate posturing even to mini mal stimulation NEURO: eyes closed, no purposeful movement, no abnormal gaze, right pupil 5, left 3 and nei ther reactive, positive b/l corneal reflexes and cough with suctioning, slight flexion of ri ght arm to pain but wrist extends, extensor posturing of all other extremities to pain, arms very stiff R>L, toes upgoing b/l GCS: 4T but no sedation HEENT: right scalp caved in, wound stapled and dressd, sclerae clear, nonicteric, oral mmm, pink, no exudates, OGT, ETT in place NECK: supple, trachea midline, supple HEART: RRR, S1/S2, no murmur, rub or gallop LUNGS: clear b/l with minimal upper airway rhonchi, no wheezing, crackles ABD: soft, nondistended, no masses EXTR: no edema, clubbing or cyanosis SKIN: warm, dry, no rash or mottling; no e/o skin breakdown over the occiput, scapulae, elb ows, sacrum or heels LINES/TUBES: PIVs, daniels cath, left radial Silvia DATA Recent Labs Lab 10/11/14224410/11/148 WBC 9.7 -- HGB 10.9* 11.9* HCT 34.9* 35* PLT 164 -- NEUTOPHILPCT 72.3 -- MONOPCT 13.4 -- Recent Labs Lab 10/11/14223610/11/141948 NA -- 138 K -- 2.7* CL -- 102 CO2 -- 25 BUN -- 7* CREATININE -- 0.68* PROT 6.3 -- BILITOT 1.6* -- ALT 54 -- AST 61* -- No results for input(s): INR in the last 168 hours. IMAGING X-ray Chest 1 View 10/11/2014 1. Endotracheal tube and enteric tube in radiographically appropriate position s 2. Some coarsening of midlung field markings, more so on the left. A subtle perihilar inf iltrate would be difficult to exclude, but also consider atelectasis Xr Ct Portable Head Unenhanced 10/11/2014 1. Post evacuation of the subdural hematoma and wide right frontotemporal deco mpression, with expected surgical changes, pneumocephalus and drain. 2. Significant mass ef fect and edema remains, but there are some anatomic improvements as above. 3. The significa nt majority of the subdural collection has been evacuated, with some residual about the tent orium LEM LIST Principal Problem: Traumatic brain injury, closed Active Problems: Alcohol abuse Frequent falls Comatose Seizure ASSESSMENT & PLAN NEURO: Severe TBI with large R SDH and MLS: s/p craniectomy. Prognosis poor. Family aware of the severity of his injury and the possibility that he c ould progress to brain but that we will cont to follow his neuro exams closely off sed ation. Seizure: cont Keppra CV: HTN: prn labetalol and hydralazine for SBP>160. Do not need to titrate to CPP as skull o ff but will allow mild HTN for perfusion. PULM: Acute respiratory failure with GCS 3-4 on scene, currently 4. No other pulmonary issues except titrating Ve for goal PCO2 35-40. GI/NUTRITION: NPO OGT in place to LWIS RENAL/LYTES: Hypokalemia: replacing Normal renal function, UO not what would be expected after receiving mannitol in ED. Lik valarie dehydrated from alcohol intoxication. NS at 150/hr. ID: No indication for abx. HEME: Mild anemia of acute hemorrhage but also poss due to chronic ds from ETOH abuse. No prio r CBC. ENDO: No issues. Glucose wnl. MUSC/SKIN: No issues PROPHYLAXIS: Stress ulcer prophylaxis: Pepcid DVT prophylaxis: SCDs only VAP: chlorhexadine oral care and HOB > 30 degrees Disposition: ICU plan above. Patient's prognosis is poor to grim. Discussed with his maxx hartman, brother and son at the bedside and also updated by Dr. Delgado pre and post-op. Code Status: Full Code Primary Care Physician: PER PT NONE Thank you for this consult. We will continue to follow with you. *Please bill 80 minutes of critical care time spent evaluating the patient, reviewing the d travis and formulating a plan exclusive of all other procedures. Liz West, 10/11/2014 11:24 PM documented in this encounter Miscellaneous Notes Plan of Care - Conversion Transaction, Provider Unknown - 10/28/2014 11:19 PM PST Plan of Care by Thalia Israel RN at 10/28/149 Author: Thalia Israel RN Service: (none) Author Type: Registered Nurse Filed: 10/28/142320 Date of Service: 10/28/142318 Status: Signed Highway Maintenance Supervisor: Thalia Israel RN (Registered Nurse) Patient will be injury free during hospitalization Progressing Patient to use call light to express needs, call light within reach, bed in lowest locked p osition. Non skid footwear in place. Patient uses call light appropriately at times. Bed ala rm set, patient and bed in view of nurses station. Frequent patient checks performed for saf ety. lan o f Care - Conversion Transaction, Provider Unknown - 10/26/2014 7:17 AM PSTFormatting of thi s note might be different from the original. Plan of Care by Tamiko Crouch RN at 10/26/14716 Author: Tamiko Crouch RN Service: (none) Author Type: Registered Nurse Filed: 10/26/14716 Date of Service: 10/26/14716 Status: Signed Highway Maintenance Supervisor: Tamiko Crouch RN (Registered Nurse) Problem: Safety Goal: Patient will be injury free during hospitalization Assess and monitor vitals signs, neurological status including level of consciousness and o rientation. Assess patient s risk for falls and implement fall prevention plan of care and interventions per hospital policy. Ensure arm band on, uncluttered walking paths in room, adequate room lighting, call light a nd overbed table within reach, bed in low position, wheels locked, side rails up per policy, and non-skid footwear provided. Outcome: Progressing Call light in place. Instructed patient to use when assistance is needed. Bed alarm on. Tamiko Crouch RN 10/26/2014 7:17 AM lan o f Care - Conversion Transaction, Provider Unknown - 10/25/2014 8:51 PM PSTFormatting of thi s note might be different from the original. Plan of Care by Dorcas Antonio RN at 10/25/142050 Author: Dorcas Antonio RN Service: (none) Author Type: Registered Nurse Filed: 10/25/142050 Date of Service: 10/25/142050 Status: Signed Highway Maintenance Supervisor: Dorcas Antonio RN (Registered Nurse) Problem: Pain Goal: Patient s pain/discomfort is manageable Assess and monitor patient s pain using appropriate pain scale. Collaborate with interdis ciplinary team and initiate plan and interventions as ordered. Re-assess patient s pain le odette approximately 1-2 hours after pain management intervention. Premedicate as needed. Outcome: Progressing Patient medicated for pain. Will reassess as needed and provide comfort measures appropria tely. Problem: Safety Goal: Patient will be injury free during hospitalization Assess and monitor vitals signs, neurological status including level of consciousness and o rientation. Assess patient s risk for falls and implement fall prevention plan of care and interventions per hospital policy. Ensure arm band on, uncluttered walking paths in room, adequate room lighting, call light a nd overbed table within reach, bed in low position, wheels locked, side rails up per policy, and non-skid footwear provided. Outcome: Progressing Patient will remain free from falls during hospital visit. Bed in lowest position. Room f ree from clutter. Call light within reach. Sitter at bedside. Bed alarm on. lan o f Zunilda - Trina Isabel PT - 10/25/2014 12:15 PM PSTFormatting of this note might be diffe rent from the original. Plan of Care by Trina Maldonado PT at 10/25/141214 Author: Trina Maldonado PT Service: (none) Author Type: Physical Therapist Filed: 10/25/14 1216 Date of Service: 10/25/141214 Status: Signed Highway Maintenance Supervisor: Trina Maldonado PT (Physical Therapist) Problem: Mobility Goal: STG - Patient will ambulate Outcome: Not Progressing Comments: Unable to ambulate at this time due to Bilateral knee buckling with standing marching. Not safe to ambulate at this time. lan of Care - Conve rsion Transaction, Provider Unknown - 10/24/2014 8:30 PM PSTFormatting of this note might b e different from the original. Plan of Care by Dorcas Antonio RN at 10/24/142029 Author: Dorcas Antonio RN Service: (none) Author Type: Registered Nurse Filed: 10/24/142029 Date of Service: 10/24/142029 Status: Signed Highway Maintenance Supervisor: Dorcas Antonio RN (Registered Nurse) Problem: Pain Goal: Patient s pain/discomfort is manageable Assess and monitor patient s pain using appropriate pain scale. Collaborate with interdis ciplinary team and initiate plan and interventions as ordered. Re-assess patient s pain le odette approximately 1-2 hours after pain management intervention. Premedicate as needed. Outcome: Progressing Patient denies any pain at this time. Will continue to monitor and provide medications as well as comfort measures as needed. Patient agrees with plan. Problem: Safety Goal: Patient will be injury free during hospitalization Assess and monitor vitals signs, neurological status including level of consciousness and o rientation. Assess patient s risk for falls and implement fall prevention plan of care and interventions per hospital policy. Ensure arm band on, uncluttered walking paths in room, adequate room lighting, call light a nd overbed table within reach, bed in low position, wheels locked, side rails up per policy, and non-skid footwear provided. Outcome: Progressing Patient will remain free from falls during hospital visit. Bed in lowest position. Room f ree from clutter. Call light within reach. Sitter at bedside. Bed alarm on. lan o f Zunilda - Jessica Headley MA, CCC-INTELLIGENCE INTERN - 10/24/2014 11:48 AM PST Plan of Care by Jessica Headley MA CCC-INTELLIGENCE INTERN at 10/24/141147 Author: Jessica Headley MA CCC-INTELLIGENCE INTERN Service: (none) Author Type: Speech and Language Pathologist Filed: 10/24/141147 Date of Service: 10/24/141147 Status: Signed Highway Maintenance Supervisor: Jessica Headley MA CCC-INTELLIGENCE INTERN (Speech and Language Pathologist) Problem: Dysphagia Goal: LTG - Patient will have safe/efficient oral intake Outcome: Progressing Patient will work towards this goal with puree diet, with feeding assist. lan o f Care - Conversion Transaction, Provider Unknown - 10/23/2014 10:07 PM PSTFormatting of thi s note might be different from the original. Plan of Care by Dorcas Antonio RN at 10/23/142206 Author: Dorcas Antonio RN Service: (none) Author Type: Registered Nurse Filed: 10/23/142206 Date of Service: 10/23/142206 Status: Signed Highway Maintenance Supervisor: Dorcas Antonio RN (Registered Nurse) Problem: Pain Goal: Patient s pain/discomfort is manageable Assess and monitor patient s pain using appropriate pain scale. Collaborate with interdis ciplinary team and initiate plan and interventions as ordered. Re-assess patient s pain le odette approximately 1-2 hours after pain management intervention. Premedicate as needed. Outcome: Progressing Patient medicated for pain. Will reassess appropriately and provide medication as well as comfort measures as needed. Problem: Safety Goal: Patient will be injury free during hospitalization Assess and monitor vitals signs, neurological status including level of consciousness and o rientation. Assess patient s risk for falls and implement fall prevention plan of care and interventions per hospital policy. Ensure arm band on, uncluttered walking paths in room, adequate room lighting, call light a nd overbed table within reach, bed in low position, wheels locked, side rails up per policy, and non-skid footwear provided. Outcome: Progressing Patient will remain free from falls during hospital visit. Bed in lowest position. Room f ree from clutter. Call light within reach. Sitter in room. Patient visible from nurses sta tion. lan o f Care - Conversion Transaction, Provider Unknown - 10/20/2014 12:05 PM PSTFormatting of thi s note might be different from the original. Plan of Care by Tamiko Crouch RN at 10/20/141204 Author: Tamiko Crouch RN Service: (none) Author Type: Registered Nurse Filed: 10/20/141204 Date of Service: 10/20/141204 Status: Signed Highway Maintenance Supervisor: Tamiko Crouch RN (Registered Nurse) Problem: Safety Goal: Patient will be injury free during hospitalization Assess and monitor vitals signs, neurological status including level of consciousness and o rientation. Assess patient s risk for falls and implement fall prevention plan of care and interventions per hospital policy. Ensure arm band on, uncluttered walking paths in room, adequate room lighting, call light a nd overbed table within reach, bed in low position, wheels locked, side rails up per policy, and non-skid footwear provided. Outcome: Progressing Call light in place. Instructed patient to use when assistance is needed. Tamiko Crouch RN 10/20/2014 12:05 PM lan o f [place] - Jessica Headley MA, CCC-INTELLIGENCE INTERN - 10/19/2014 2:13 PM PST Plan of Care by Jessica Headley MA CCC-INTELLIGENCE INTERN at 10/19/14 1413 Author: Jessica Headley MA CCC-INTELLIGENCE INTERN Service: (none) Author Type: Speech and Language Pathologist Filed: 10/19/14 1413 Date of Service: 10/19/141412 Status: Signed Highway Maintenance Supervisor: Jessica Headley MA CCC-INTELLIGENCE INTERN (Speech and Language Pathologist) Problem: Dysphagia Goal: LTG - Patient will have safe/efficient oral intake Outcome: Progressing Patient will work towards this goal with puree diet, with feeding assist. lan o f [place] - Miguel Ángel Jonh MD - 10/16/2014 3:01 PM PSTFormatting of this note might be dif ferent from the original. Plan of Care by Miguel Ángel John MD at 10/16/14 1501 Author: Miguel Ángel John MD Service: Hospitalist Author Type: Physician Filed: 10/16/14 1507 Date of Service: 10/16/14 150 Status: Signed Highway Maintenance Supervisor: Miguel Ángel John MD (Physician) Accepted to the hospitalist service, please see icu note for todays details. Plan as I am told is for pt to have a repeat CT scan, NS following, case mgt workingon a plan for rehab a s to be TBI rehab versus possibly IPR here if possible or other. On neurocheck, watching fo r DT and none per ICU x 48 hours. lan of Care - Anila Roblero MD - 10/11/2014 9:52 PM PSTFormatting of this note might be different fro m the original. Plan of Care by Anila Delgado MD at 10/11/142151 Author: Anila Delgado MD Service: Neurosurgery Author Type: Physician Filed: 10/11/142153 Date of Service: 10/11/142151 Status: Signed Highway Maintenance Supervisor: Anila Delgado MD (Physician) Postop exam- Extensor posturing in bilateral UE. Pupils r3 L5 nonreactive with absent cor nals. +cough and gag. Postop head ct pending. Have discussed his poor clinical exam And likely severity of brain injury with his family. I am not sure this is a survivable injury See operative note for intraop details p Note - Anila Betancur MD - 10/11/2014 9:48 PM PSTFormatting of this note might be different from t he original. Op Note signed by Anila Delgado MD at 10/11/142243 Author: Anila Delgado MD Service: Neurosurgery Author Type: Physician Filed: 10/11/142243 Date of Service: 10/11/142147 Status: Signed Highway Maintenance Supervisor: Anila Delgado MD (Physician) TONY FORTUNE Date of : 1960 DATE OF SERVICE October 11, 2014 PREOPERATIVE DIAGNOSIS Traumatic right-sided subdural hematoma. POSTOPERATIVE DIAGNOSIS Traumatic right-sided subdural hematoma. PROCEDURE Right decompressive hemicraniectomy with evacuation of the subdural hematoma and placement of subdural drains. SURGEON Anila Delgado MD ANESTHESIA General. ESTIMATED BLOOD LOSS 500 mL. DESCRIPTION OF PROCEDURE This patient was brought to the operating room already under general endotracheal anesthesi a. The patient was placed supine on the operative table with a right-sided shoulder bump. Th e head was tilted to the right on a jell roll. All pressure points were carefully padded. Th e right side of the head was shaved in a standard fashion. A reverse question elsa incision was mapped out. Once the head was prepped and draped, following a timeout, the incision was opened with a 15 blade scalpel. This incision was carried down to the bone. The skin and the temporalis were flapped forward was 1 unit. Using a Midas Mason drill with a craniotome bit, bur hole was placed at the keyhole, the root of the zygoma, and then superior parietal appro ximately 1 cm medial to the temporal line. Once these bur holes were placed then using the B 1 foot plate, these were connected in a large right-sided craniectomy piece was removed en b loc. The bone edges were waxed. The underlying dura was extremely tense using a 15 blade sca lpel with Metzenbaum scissors. The dura was opened in cruciate fashion with a large acute molina bdural hematoma. I did not, or was unable to identify any active bleeders. The hematoma was removed with gentle irrigation. The brain initially was very full. I made the decision to le ave the bone off. A large piece of DuraGen was placed overlying the dural leaflets. Two 7 mm flat JPs were placed. The wound was closed in standard fashion with 2-0 Vicryl interrupted in the temporalis fascia, and then 2-0 Vicryl interrupted galea stitches with diamond on the skin. This patient was transferred to the ICU in very critical condition. P/ P/olga lidia/[id number] ANILA DELGADO II, MD documented in th is encounter Plan of Treatment Not on filedocumented as of this encounter Procedures + +--------+ + + + | Procedure Name | Priori | Date/Time | Associated Diagnosis | Comments | | | ty | | | | + +--------+ + + + | BASIC METABOLIC | Routin | 10/25/2014 | | Results for this | | PANEL | e | 4:06 AM | | procedure are in the | | | | PST | | results section. | + +--------+ + + + | COMPREHENSIVE | Routin | 10/24/2014 | | Results for this | | METABOLIC PANEL | e | 2:12 PM | | procedure are in the | | | | PST | | results section. | + +--------+ + + + | EXTERNAL LAB: CBC | Routin | 10/22/2014 | | Results for this | | | e | 3:24 AM | | procedure are in the | | | | PST | | results section. | + +--------+ + + + | MAGNESIUM | Routin | 10/22/2014 | | Results for this | | | e | 3:24 AM | | procedure are in the | | | | PST | | results section. | + +--------+ + + + | BASIC METABOLIC | Routin | 10/22/2014 | | Results for this | | PANEL | e | 3:24 AM | | procedure are in the | | | | PST | | results section. | + +--------+ + + + | BASIC METABOLIC | Routin | 10/21/2014 | | Results for this | | PANEL | e | 4:00 AM | | procedure are in the | | | | PST | | results section. | + +--------+ + + + | EXTERNAL LAB: CBC | Routin | 10/20/2014 | | Results for this | | | e | 3:35 AM | | procedure are in the | | | | PST | | results section. | + +--------+ + + + | MAGNESIUM | Routin | 10/20/2014 | | Results for this | | | e | 3:35 AM | | procedure are in the | | | | PST | | results section. | + +--------+ + + + | BASIC METABOLIC | Routin | 10/20/2014 | | Results for this | | PANEL | e | 3:35 AM | | procedure are in the | | | | PST | | results section. | + +--------+ + + + | EXTERNAL LAB: CBC | Routin | 10/18/2014 | | Results for this | | | e | 4:13 AM | | procedure are in the | | | | PST | | results section. | + +--------+ + + + | MAGNESIUM | Routin | 10/18/2014 | | Results for this | | | e | 4:13 AM | | procedure are in the | | | | PST | | results section. | + +--------+ + + + | BASIC METABOLIC | Routin | 10/18/2014 | | Results for this | | PANEL | e | 4:13 AM | | procedure are in the | | | | PST | | results section. | + +--------+ + + + | CT HEAD WO CONTRAST | Routin | 10/17/2014 | | Results for this | | | e | 6:09 AM | | procedure are in the | | | | PST | | results section. | + +--------+ + + + | POTASSIUM | Routin | 10/16/2014 | | Results for this | | | e | 5:47 PM | | procedure are in the | | | | PST | | results section. | + +--------+ + + + | CT HEAD WO CONTRAST | Routin | 10/16/2014 | | Results for this | | | e | 5:05 AM | | procedure are in the | | | | PST | | results section. | + +--------+ + + + | EXTERNAL LAB: CBC | Routin | 10/16/2014 | | Results for this | | | e | 4:09 AM | | procedure are in the | | | | PST | | results section. | + +--------+ + + + | BASIC METABOLIC | Routin | 10/16/2014 | | Results for this | | PANEL | e | 4:09 AM | | procedure are in the | | | | PST | | results section. | + +--------+ + + + | POTASSIUM | Routin | 10/15/2014 | | Results for this | | | e | 3:06 PM | | procedure are in the | | | | PST | | results section. | + +--------+ + + + | EXTERNAL LAB: CBC | Routin | 10/15/2014 | | Results for this | | | e | 5:59 AM | | procedure are in the | | | | PST | | results section. | + +--------+ + + + | BASIC METABOLIC | Routin | 10/15/2014 | | Results for this | | PANEL | e | 5:59 AM | | procedure are in the | | | | PST | | results section. | + +--------+ + + + | BASIC METABOLIC | Routin | 10/14/2014 | | Results for this | | PANEL | e | 10:58 PM | | procedure are in the | | | | PST | | results section. | + +--------+ + + + | POTASSIUM | Routin | 10/14/2014 | | Results for this | | | e | 9:09 PM | | procedure are in the | | | | PST | | results section. | + +--------+ + + + | POC GLUCOSE | Routin | 10/14/2014 | | Results for this | | | e | 9:05 PM | | procedure are in the | | | | PST | | results section. | + +--------+ + + + | ECHO COMPLETE | Routin | 10/14/2014 | | Results for this | | | e | 9:33 AM | | procedure are in the | | | | PST | | results section. | + +--------+ + + + | XR CHEST 1 VIEW | Routin | 10/14/2014 | | Results for this | | | e | 8:36 AM | | procedure are in the | | | | PST | | results section. | + +--------+ + + + | CT HEAD WO CONTRAST | Routin | 10/14/2014 | | Results for this | | | e | 4:16 AM | | procedure are in the | | | | PST | | results section. | + +--------+ + + + | EXTERNAL LAB: CBC | Routin | 10/14/2014 | | Results for this | | | e | 4:15 AM | | procedure are in the | | | | PST | | results section. | + +--------+ + + + | BASIC METABOLIC | Routin | 10/14/2014 | | Results for this | | PANEL | e | 4:15 AM | | procedure are in the | | | | PST | | results section. | + +--------+ + + + | PROCALCITONIN, SERUM | Routin | 10/13/2014 | | Results for this | | | e | 6:18 PM | | procedure are in the | | | | PST | | results section. | + +--------+ + + + | POTASSIUM | Routin | 10/13/2014 | | Results for this | | | e | 6:18 PM | | procedure are in the | | | | PST | | results section. | + +--------+ + + + | XR CHEST 1 VIEW | Routin | 10/13/2014 | | Results for this | | | e | 3:50 PM | | procedure are in the | | | | PST | | results section. | + +--------+ + + + | XR CHEST 1 VIEW | Routin | 10/13/2014 | | Results for this | | | e | 5:51 AM | | procedure are in the | | | | PST | | results section. | + +--------+ + + + | EXTERNAL LAB: CBC | Routin | 10/13/2014 | | Results for this | | | e | 2:47 AM | | procedure are in the | | | | PST | | results section. | + +--------+ + + + | BASIC METABOLIC | Routin | 10/13/2014 | | Results for this | | PANEL | e | 2:47 AM | | procedure are in the | | | | PST | | results section. | + +--------+ + + + | POTASSIUM | Routin | 10/12/2014 | | Results for this | | | e | 5:48 PM | | procedure are in the | | | | PST | | results section. | + +--------+ + + + | MAGNESIUM | Routin | 10/12/2014 | | Results for this | | | e | 5:48 PM | | procedure are in the | | | | PST | | results section. | + +--------+ + + + | PROTIME INR | Routin | 10/12/2014 | | Results for this | | | e | 9:39 AM | | procedure are in the | | | | PST | | results section. | + +--------+ + + + | EXTERNAL LAB: CBC | Routin | 10/12/2014 | | Results for this | | | e | 3:05 AM | | procedure are in the | | | | PST | | results section. | + +--------+ + + + | MAGNESIUM | Routin | 10/12/2014 | | Results for this | | | e | 3:05 AM | | procedure are in the | | | | PST | | results section. | + +--------+ + + + | BASIC METABOLIC | Routin | 10/12/2014 | | Results for this | | PANEL | e | 3:05 AM | | procedure are in the | | | | PST | | results section. | + +--------+ + + + | EXTERNAL LAB: CBC | Routin | 10/11/2014 | | Results for this | | | e | 10:45 PM | | procedure are in the | | | | PST | | results section. | + +--------+ + + + | MRSA NAAT | Routin | 10/11/2014 | | Results for this | | | e | 10:39 PM | | procedure are in the | | | | PST | | results section. | + +--------+ + + + | GRAM STAIN, REFLEX | Timed | 10/11/2014 | | Results for this | | SPUTUM CULTURE | | 10:38 PM | | procedure are in the | | | | PST | | results section. | + +--------+ + + + | PHOSPHORUS | Routin | 10/11/2014 | | Results for this | | | e | 10:37 PM | | procedure are in the | | | | PST | | results section. | + +--------+ + + + | MAGNESIUM | Routin | 10/11/2014 | | Results for this | | | e | 10:37 PM | | procedure are in the | | | | PST | | results section. | + +--------+ + + + | HEPATIC FUNCTION | Routin | 10/11/2014 | | Results for this | | PANEL | e | 10:37 PM | | procedure are in the | | | | PST | | results section. | + +--------+ + + + | XR CHEST 1 VIEW | Routin | 10/11/2014 | | Results for this | | | e | 10:23 PM | | procedure are in the | | | | PST | | results section. | + +--------+ + + + | CT HEAD WO CONTRAST | Routin | 10/11/2014 | | Results for this | | | e | 10:23 PM | | procedure are in the | | | | PST | | results section. | + +--------+ + + + | BASIC METABOLIC | Routin | 10/11/2014 | | Results for this | | PANEL | e | 7:49 PM | | procedure are in the | | | | PST | | results section. | + +--------+ + + + | POC GREGOR CARR, | Routin | 10/11/2014 | | Results for this | | ARTERIAL | e | 7:48 PM | | procedure are in the | | | | PST | | results section. | + +--------+ + + + documented in this encounter Results Basic Metabolic Panel (10/25/2014 4:06 AM PST) + + + + + + | Component | Value | Ref Range | Performed | Pathologist | | | | | At | Signature | + + + + + + | Na | 134 (L)Comment: Testing | 135 - 143 | EXTERNAL | | | | performed at [facility], [address] | mmol/L | LAB | | | | [address], | | | | | | [place] [address] | | | | + + + + + + | K | 3.8Comment: Testing | 3.5 - 4.9 | EXTERNAL | | | | performed at [facility], [address] | mmol/L | LAB | | | | [address], | | | | | | [place], [place] [address] | | | | + + + + + + | Cl | 101Comment: Testing | 99 - 109 mmol/L | EXTERNAL | | | | performed at [facility], [address] | | LAB | | | | [address], | | | | | | [place], [place] [address] | | | | + + + + + + | CO2 | 28Comment: Testing | 23 - 32 mmol/L | EXTERNAL | | | | performed at [facility], [address] | | LAB | | | | [address], | | | | | | [place] [address] | | | | + + + + + + | Anion Gap | 9Comment: Testing | 5 - 20 mmol/L | EXTERNAL | | | | performed at [facility], [address] | | LAB | | | | [address], | | | | | | [place] [address] | | | | + + + + + + | Glucose, | 119 (H)Comment: Testing | 65 - 99 mg/dL | EXTERNAL | | | Fasting | performed at [facility], [address] | | LAB | | | | [address], | | | | | | [place] [address] | | | | + + + + + + | BUN | 8Comment: Testing | 8 - 25 mg/dL | EXTERNAL | | | | performed at [facility], [address] | | LAB | | | [address], | | | | | | [place] [address] | | | | + + + + + + | Creatinine | 0.54 (L)Comment: Testing | 0.70 - 1.30 | EXTERNAL | | | | performed at [facility], [address] | mg/dL | LAB | | | | [address], | | | | | | [place] [address] | | | | + + + + + + | BUN/Creatin | 15Comment: Testing | | EXTERNAL | | | ine Ratio | performed at [facility] [address], [address] | | LAB | | | | [address], | | | | | | [place] [address] | | | | + + + + + + | Calcium | 9.4Comment: NOTE NEW | 8.5 - 10.5 | EXTERNAL | | | | REFERENCE RANGETesting | mg/dL | LAB | | | | performed at [facility] [address], [address] | | | | | | [address], | | | | | | [place] [address] | | | | + + + [...] | | | | | | at [facility] [address], [address] | | | | | | [address], | | | | | | [place] [address] | | | | + + + [...] + +---------+ + + Comprehensive Metabolic Panel (10/24/2014 2:12 PM PST) + + + + + + | Component | Value | Ref Range | Performed | Pathologist | | | | | At | Signature | + + + + + + | Na | 134 (L)Comment: Testing | 135 - 143 | EXTERNAL | | | | performed at [facility], [address] | mmol/L | LAB | | | | [address], | | | | | | [place] [address] | | | | + + + + + + | K | 3.6Comment: Testing | 3.5 - 4.9 | EXTERNAL | | | | performed at [facility], [address] | mmol/L | LAB | | | | [address], | | | | | | [place] [address] | | | | + + + + + + | Cl | 101Comment: Testing | 99 - 109 mmol/L | EXTERNAL | | | | performed at [facility], [address] | | LAB | | | | [address], | | | | | | [place] [address] | | | | + + + + + + | CO2 | 29Comment: Testing | 23 - 32 mmol/L | EXTERNAL | | | | performed at [facility], [address] | | LAB | | | | [address], | | | | | | [place] [address] | | | | + + + + + + | Anion Gap | 8Comment: Testing | 5 - 20 mmol/L | EXTERNAL | | | | performed at [facility], [address] | | LAB | | | | [address], | | | | | | [place] [address] | | | | + + + + + + | Glucose, | 118 (H)Comment: Testing | 65 - 99 mg/dL | EXTERNAL | | | Fasting | performed at [facility], [address] | | LAB | | | | [address], | | | | | | [place] [address] | | | | + + + + + + | BUN | 7 (L)Comment: Testing | 8 - 25 mg/dL | EXTERNAL | | | | performed at [facility], [address] | | LAB | | | | [address], | | | | | | [place] [address] | | | | + + + + + + | Creatinine | 0.57 (L)Comment: Testing | 0.70 - 1.30 | EXTERNAL | | | | performed at [facility], [address] | mg/dL | LAB | | | | [address], | | | | | | [place] [address] | | | | + + + + + + | BUN/Creatin | 12Comment: Testing | | EXTERNAL | | | ine Ratio | performed at [facility], [address] | | LAB | | | | [address], | | | | | | [place] [address] | | | | + + + + + + | Calcium | 9.5Comment: NOTE NEW | 8.5 - 10.5 | EXTERNAL | | | | REFERENCE RANGETesting | mg/dL | LAB | | | | performed at [facility], [address] | | | | | | [address], | | | | | | [place] [address] | | | | + + + + + + | Protein, | 7.7Comment: Testing | 6.3 - 8.2 g/dL | EXTERNAL | | | Total | performed at [facility], [address] | | LAB | | | | [address], | | | | | | [place] [address] | | | | + + + + + + | Albumin | 3.5 (L)Comment: Testing | 3.6 - 5.0 g/dL | EXTERNAL | | | | performed at [facility], [address] | | LAB | | | | [address], | | | | | | [place] [address] | | | | + + + + + + | Globulin | 4.2Comment: Testing | 1.3 - 4.9 g/dL | EXTERNAL | | | | performed at [facility], [address] | | LAB | | | | [address], | | | | | | [place] [address] | | | | + + + + + + | A/G Ratio | 0.8 (L)Comment: Testing | 1.0 - 2.4 | EXTERNAL | | | | performed at [facility], [address] | | LAB | | | | [address], | | | | | | [place] [address] | | | | + + + + + + | Bilirubin | 0.6Comment: Testing | 0.1 - 1.5 mg/dL | EXTERNAL | | | Total | performed at [facility], [address] | | LAB | | | | [address], | | | | | | [place] [address] | | | | + + + + + + | ALP, | 225 (H)Comment: Testing | 35 - 115 U/L | EXTERNAL | | | External | performed at [facility], [address] | | LAB | | | | [address], | | | | | | [place] [address] | | | | + + + + + + | AST | 52 (H)Comment: Testing | 10 - 45 U/L | EXTERNAL | | | | performed at [facility], [address] | | LAB | | | | [address], | | | | | | [place] [address] | | | | + + + + + + | ALT | 46Comment: Testing | 10 - 65 U/L | EXTERNAL | | | | performed at [facility], [address] | | LAB | | | | [address], | | | | | | [place] [address] | | | | + + + [...] | | | | | | [address], | | | | | | [place] [address] | | | | + + + [...] + +---------+ + + External Lab: CBC (10/22/2014 3:24 AM PST) + + + + + + | Component | Value | Ref Range | Performed | Pathologist | | | | | At | Signature | + + + + + + | WBC | 7.9Comment: Testing | 3.8 - 11.0 K/uL | EXTERNAL | | | | performed at [facility], [address] | | LAB | | | | [address], | | | | | | [place] [address] | | | | + + + + + + | Red Blood | 3.62 (L)Comment: Testing | 4.20 - 5.70 | EXTERNAL | | | Cells | performed at [facility], [address] | M/uL | LAB | | | Counted | [address], | | | | | | [place] [address] | | | | + + + + + + | Hemoglobin | 12.0 (L)Comment: Testing | 13.2 - 17.0 | EXTERNAL | | | | performed at [facility], [address] | g/dL | LAB | | | | [address], | | | | | | [place] [address] | | | | + + + + + + | Hematocrit, | 36.2 (L)Comment: Testing | 39.0 - 50.0 % | EXTERNAL | | | POC | performed at [facility], [address] | | LAB | | | | [address], | | | | | | [place] [address] | | | | + + + + + + | MCV | 99.9Comment: Testing | 80.0 - 100.0 fl | EXTERNAL | | | | performed at [facility], [address] | | LAB | | | | [address], | | | | | | [place] [address] | | | | + + + + + + | MCH | 33.2Comment: Testing | 27.0 - 34.0 pg | EXTERNAL | | | | performed at [facility], [address] | | LAB | | | | [address], | | | | | | [place] [address] | | | | + + + + + + | MCHC | 33.2Comment: Testing | 32.0 - 35.5 | EXTERNAL | | | | performed at [facility], [address] | g/dL | LAB | | | | [address], | | | | | | [place] [address] | | | | + + + + + + | RDW-CV | 54.7 (H)Comment: Testing | 37 - 53 fl | EXTERNAL | | | | performed at [facility], [address] | | LAB | | | | [address], | | | | | | [place] [address] | | | | + + + + + + | Platelet | 286Comment: Testing | 150 - 400 K/uL | EXTERNAL | | | Count | performed at [facility], [address] | | LAB | | | Plasma | [address], | | | | | | [place] [address] | | | | + + + + + + | MPV | 8.2Comment: Testing | fl | EXTERNAL | | | | performed at [facility], [address] | | LAB | | | | [address], | | | | | | [place] [address] | | | | + + + + + + | Differentia | AUTOMATEDComment: | | EXTERNAL | | | l Type | Testing performed at | | LAB | | | | [facility], [address] | | | | | | [place] | | | | | | [address] | | | | + + + + + + | % Segmented | 72.2Comment: Testing | % | EXTERNAL | | | | performed at [facility], [address] | | LAB | | | Neutrophils | [address], | | | | | | [place] [address] | | | | + + + + + + | % | 16.2Comment: Testing | % | EXTERNAL | | | Lymphocytes | performed at [facility], [address] | | LAB | | | | [address], | | | | | | [place] [address] | | | | + + + + + + | % Monocytes | 7.9Comment: Testing | % | EXTERNAL | | | | performed at [facility], [address] | | LAB | | | | [address], | | | | | | [place] [address] | | | | + + + + + + | % | 3.0Comment: Testing | % | EXTERNAL | | | Eosinophils | performed at [facility], [address] | | LAB | | | | [address], | | | | | | [place] [address] | | | | + + + + + + | % Basophils | 0.7Comment: Testing | % | EXTERNAL | | | | performed at [facility], [address] | | LAB | | | | [address], | | | | | | [place] [address] | | | | + + + + + + | Absolute | 5.7Comment: Testing | 1.9 - 7.4 K/uL | EXTERNAL | | | Segmented | performed at [facility], [address] | | LAB | | | Neutrophils | [address], | | | | | | [place] [address] | | | | + + + + + + | Absolute | 1.3Comment: Testing | 1.0 - 3.9 K/uL | EXTERNAL | | | Lymphocytes | performed at [facility], [address] | | LAB | | | | [address], | | | | | | [place] [address] | | | | + + + + + + | Absolute | 0.6Comment: Testing | 0 - 0.8 K/uL | EXTERNAL | | | Monocytes | performed at [facility], [address] | | LAB | | | | [address], | | | | | | [place] [address] | | | | + + + + + + | Absolute | 0.2Comment: Testing | 0 - 0.5 K/uL | EXTERNAL | | | Eosinophils | performed at [facility], [address] | | LAB | | | | [address], | | | | | | [place] [address] | | | | + + + + + + | Absolute | 0.1Comment: Testing | 0 - 0.1 K/uL | EXTERNAL | | | Basophils | performed at [facility], [address] | | LAB | | | [address], | | | | | | [place] [address] | | | | + + + + + + + + | Specimen | + + | Blood specimen | | (specimen) | + + + +---------+ + + | Performing | Address | City/State/Zipcode | Phone Number | | Organization | | | | + +---------+ + + | EXTERNAL LAB | | | | + +---------+ + + Magnesium (10/22/2014 3:24 AM PST) + + + + + + | Component | Value | Ref Range | Performed | Pathologist | | | | | At | Signature | + + + + + + | Magnesium | 1.9Comment: Testing | 1.7 - 2.4 mg/dL | EXTERNAL | | | | performed at [facility];[address] | | LAB | | | | [address];[place], [place] | | | | | | [address] | | | | + + + + + + + + | Specimen | + + | Blood specimen | | (specimen) | + + + +---------+ + + | Performing | Address | City/State/Zipcode | Phone Number | | Organization | | | | + +---------+ + + | EXTERNAL LAB | | | | + +---------+ + + Basic Metabolic Panel (10/22/2014 3:24 AM PST) + + + + + + | Component | Value | Ref Range | Performed | Pathologist | | | | | At | Signature | + + + + + + | Na | 133 (L)Comment: Testing | 135 - 143 | EXTERNAL | | | | performed at [facility], [address] | mmol/L | LAB | | | | [address], | | | | | | [place] [address] | | | | + + + + + + | K | 3.5Comment: Testing | 3.5 - 4.9 | EXTERNAL | | | | performed at [facility], [address] | mmol/L | LAB | | | | [address], | | | | | | [place] [address] | | | | + + + + + + | Cl | 100Comment: Testing | 99 - 109 mmol/L | EXTERNAL | | | | performed at [facility], [address] | | LAB | | | | [address], | | | | | | [place] [address] | | | | + + + + + + | CO2 | 26Comment: Testing | 23 - 32 mmol/L | EXTERNAL | | | | performed at [facility], [address] | | LAB | | | | [address], | | | | | | [place] [address] | | | | + + + + + + | Anion Gap | 11Comment: Testing | 5 - 20 mmol/L | EXTERNAL | | | | performed at [facility], [address] | | LAB | | | | [address], | | | | | | [place] [address] | | | | + + + + + + | Glucose, | 112 (H)Comment: Testing | 65 - 99 mg/dL | EXTERNAL | | | Fasting | performed at [facility], [address] | | LAB | | | | [address], | | | | | | [place] [address] | | | | + + + + + + | BUN | 8Comment: Testing | 8 - 25 mg/dL | EXTERNAL | | | | performed at [facility], [address] | | LAB | | | | [address], | | | | | | [place] [address] | | | | + + + + + + | Creatinine | 0.65 (L)Comment: Testing | 0.70 - 1.30 | EXTERNAL | | | | performed at [facility], [address] | mg/dL | LAB | | | | [address], | | | | | | [place] [address] | | | | + + + + + + | BUN/Creatin | 12Comment: Testing | | EXTERNAL | | | ine Ratio | performed at [facility], [address] | | LAB | | | | [address], | | | | | | [place] [address] | | | | + + + + + + | Calcium | 9.2Comment: NOTE NEW | 8.5 - 10.5 | EXTERNAL | | | | REFERENCE RANGETesting | mg/dL | LAB | | | | performed at [facility], [address] | | | | | | [address], | | | | | | [place] [address] | | | | + + + [...] | | | | | | [address], | | | | | | [place] [address] | | | | + + + + + + + + | Specimen | + + | Blood specimen | | (specimen) | + + + +---------+ + + | Performing | Address | City/State/Zipcode | Phone Number | | Organization | | | | + +---------+ + + | EXTERNAL LAB | | | | + +---------+ + + Basic Metabolic Panel (10/21/2014 4:00 AM PST) + + + + + + | Component | Value | Ref Range | Performed | Pathologist | | | | | At | Signature | + + + + + + | Na | 133 (L)Comment: Testing | 135 - 143 | EXTERNAL | | | | performed at [facility], [address] | mmol/L | LAB | | | | [address], | | | | | | [place] [address] | | | | + + + + + + | K | 3.6Comment: Testing | 3.5 - 4.9 | EXTERNAL | | | | performed at [facility], [address] | mmol/L | LAB | | | | [address], | | | | | | [place] [address] | | | | + + + + + + | Cl | 100Comment: Testing | 99 - 109 mmol/L | EXTERNAL | | | | performed at [facility], [address] | | LAB | | | | [address], | | | | | | [place] [address] | | | | + + + + + + | CO2 | 27Comment: Testing | 23 - 32 mmol/L | EXTERNAL | | | | performed at [facility], [address] | | LAB | | | | [address], | | | | | | [place] [address] | | | | + + + + + + | Anion Gap | 10Comment: Testing | 5 - 20 mmol/L | EXTERNAL | | | | performed at [facility], [address] | | LAB | | | | [address], | | | | | | [place] [address] | | | | + + + + + + | Glucose, | 119 (H)Comment: Testing | 65 - 99 mg/dL | EXTERNAL | | | Fasting | performed at [facility], [address] | | LAB | | | | [address], | | | | | | [place] [address] | | | | + + + + + + | BUN | 11Comment: Testing | 8 - 25 mg/dL | EXTERNAL | | | | performed at [facility], [address] | | LAB | | | | [address], | | | | | | [place] [address] | | | | + + + + + + | Creatinine | 0.64 (L)Comment: Testing | 0.70 - 1.30 | EXTERNAL | | | | performed at [facility], [address] | mg/dL | LAB | | | | [address], | | | | | | [place] [address] | | | | + + + + + + | BUN/Creatin | 17Comment: Testing | | EXTERNAL | | | ine Ratio | performed at [facility], [address] | | LAB | | | | [address], | | | | | | [place] [address] | | | | + + + + + + | Calcium | 9.4Comment: NOTE NEW | 8.5 - 10.5 | EXTERNAL | | | | REFERENCE RANGETesting | mg/dL | LAB | | | | performed at [facility], [address] | | | | | | [facility], | | | | | | [place] [address] | | | | + + + [...] | | | | | | at [facility], [address] | | | | | | [address], | | | | | | [place] [address] | | | | + + + [...] + +---------+ + + External Lab: CBC (10/20/2014 3:35 AM PST) + + + + + + | Component | Value | Ref Range | Performed | Pathologist | | | | | At | Signature | + + + + + + | WBC | 9.4Comment: Testing | 3.8 - 11.0 K/uL | EXTERNAL | | | | performed at [facility], [address] | | LAB | | | | [address], | | | | | | [place] [address] | | | | + + + + + + | Red Blood | 3.83 (L)Comment: Testing | 4.20 - 5.70 | EXTERNAL | | | Cells | performed at [facility], [address] | M/uL | LAB | | | Counted | [address], | | | | | | [place] [address] | | | | + + + + + + | Hemoglobin | 12.8 (L)Comment: Testing | 13.2 - 17.0 | EXTERNAL | | | | performed at [facility], [address] | g/dL | LAB | | | | [address], | | | | | | [place] [address] | | | | + + + + + + | Hematocrit, | 38.0 (L)Comment: Testing | 39.0 - 50.0 % | EXTERNAL | | | POC | performed at [facility], [address] | | LAB | | | | [address], | | | | | | [place] [address] | | | | + + + + + + | MCV | 99.2Comment: Testing | 80.0 - 100.0 fl | EXTERNAL | | | | performed at [facility], [address] | | LAB | | | | [address], | | | | | | [place] [address] | | | | + + + + + + | MCH | 33.3Comment: Testing | 27.0 - 34.0 pg | EXTERNAL | | | | performed at [facility], [address] | | LAB | | | | [address], | | | | | | [place] [address] | | | | + + + + + + | MCHC | 33.6Comment: Testing | 32.0 - 35.5 | EXTERNAL | | | | performed at [facility], [address] | g/dL | LAB | | | | [address], | | | | | | [place] [address] | | | | + + + + + + | RDW-CV | 56.9 (H)Comment: Testing | 37 - 53 fl | EXTERNAL | | | | performed at [facility], [address] | | LAB | | | | [address], | | | | | | [place] [address] | | | | + + + + + + | Platelet | 327Comment: Testing | 150 - 400 K/uL | EXTERNAL | | | Count | performed at [facility], [address] | | LAB | | | Plasma | [address], | | | | | | [place] [address] | | | | + + + + + + | MPV | 8.3Comment: Testing | fl | EXTERNAL | | | | performed at [facility], [address] | | LAB | | | | [address], | | | | | | [place] [address] | | | | + + + + + + | Differentia | AUTOMATEDComment: | | EXTERNAL | | | l Type | Testing performed at | | LAB | | | | [facility], [address] | | | | | | [place] | | | | | | [address] | | | | + + + + + + | % Segmented | 72.8Comment: Testing | % | EXTERNAL | | | | performed at [facility], [address] | | LAB | | | Neutrophils | [address], | | | | | | [place] [address] | | | | + + + + + + | % | 16.9Comment: Testing | % | EXTERNAL | | | Lymphocytes | performed at [facility], [address] | | LAB | | | | [address], | | | | | | [place] [address] | | | | + + + + + + | % Monocytes | 7.6Comment: Testing | % | EXTERNAL | | | | performed at [facility], [address] | | LAB | | | | [address], | | | | | | [place] [address] | | | | + + + + + + | % | 2.0Comment: Testing | % | EXTERNAL | | | Eosinophils | performed at [facility], [address] | | LAB | | | | [address], | | | | | | [place] [address] | | | | + + + + + + | % Basophils | 0.7Comment: Testing | % | EXTERNAL | | | | performed at [facility], [address] | | LAB | | | | [address], | | | | | | [place] [address] | | | | + + + + + + | Absolute | 6.9Comment: Testing | 1.9 - 7.4 K/uL | EXTERNAL | | | Segmented | performed at [facility], [address] | | LAB | | | Neutrophils | [address], | | | | | | [place] [address] | | | | + + + + + + | Absolute | 1.6Comment: Testing | 1.0 - 3.9 K/uL | EXTERNAL | | | Lymphocytes | performed at [facility], [address] | | LAB | | | | [address], | | | | | | [place] [address] | | | | + + + + + + | Absolute | 0.7Comment: Testing | 0 - 0.8 K/uL | EXTERNAL | | | Monocytes | performed at [facility], [address] | | LAB | | | | [address], | | | | | | [place] [address] | | | | + + + + + + | Absolute | 0.2Comment: Testing | 0 - 0.5 K/uL | EXTERNAL | | | Eosinophils | performed at [facility], [address] | | LAB | | | | [address], | | | | | | [place] [address] | | | | + + + + + + | Absolute | 0.1Comment: Testing | 0 - 0.1 K/uL | EXTERNAL | | | Basophils | performed at [facility], [address] | | LAB | | | | [address], | | | | | | [place] [address] | | | | + + + + + + + + | Specimen | + + | Blood specimen | | (specimen) | + + + +---------+ + + | Performing | Address | City/State/Zipcode | Phone Number | | Organization | | | | + +---------+ + + | EXTERNAL LAB | | | | + +---------+ + + Magnesium (10/20/2014 3:35 AM PST) + + + + + + | Component | Value | Ref Range | Performed | Pathologist | | | | | At | Signature | + + + + + + | Magnesium | 2.1Comment: Testing | 1.7 - 2.4 mg/dL | EXTERNAL | | | | performed at [facility] | | LAB | | | | [address];[place], [place] | | | | | | [address] | | | | + + + + + + + + | Specimen | + + | Blood specimen | | (specimen) | + + + +---------+ + + | Performing | Address | City/State/Zipcode | Phone Number | | Organization | | | | + +---------+ + + | EXTERNAL LAB | | | | + +---------+ + + Basic Metabolic Panel (10/20/2014 3:35 AM PST) + + + + + + | Component | Value | Ref Range | Performed | Pathologist | | | | | At | Signature | + + + + + + | Na | 131 (L)Comment: Testing | 135 - 143 | EXTERNAL | | | | performed at [facility], [address] | mmol/L | LAB | | | | [address], | | | | | | [place] [address] | | | | + + + + + + | K | 3.8Comment: Testing | 3.5 - 4.9 | EXTERNAL | | | | performed at [facility], [address] | mmol/L | LAB | | | | [address], | | | | | | [place] [address] | | | | + + + + + + | Cl | 98 (L)Comment: Testing | 99 - 109 mmol/L | EXTERNAL | | | | performed at [facility], [address] | | LAB | | | | [address], | | | | | | [place] [address] | | | | + + + + + + | CO2 | 26Comment: Testing | 23 - 32 mmol/L | EXTERNAL | | | | performed at [facility], [address] | | LAB | | | | [address], | | | | | | [place] [address] | | | | + + + + + + | Anion Gap | 11Comment: Testing | 5 - 20 mmol/L | EXTERNAL | | | | performed at [facility], [address] | | LAB | | | | [address], | | | | | | [place] [address] | | | | + + + + + + | Glucose, | 121 (H)Comment: Testing | 65 - 99 mg/dL | EXTERNAL | | | Fasting | performed at [facility], [address] | | LAB | | | | [address], | | | | | | [place] [address] | | | | + + + + + + | BUN | 10Comment: Testing | 8 - 25 mg/dL | EXTERNAL | | | | performed at [facility], [address] | | LAB | | | | [address], | | | | | | [place] [address] | | | | + + + + + + | Creatinine | 0.60 (L)Comment: Testing | 0.70 - 1.30 | EXTERNAL | | | | performed at [facility], [address] | mg/dL | LAB | | | | [address], | | | | | | [place] [address] | | | | + + + + + + | BUN/Creatin | 17Comment: Testing | | EXTERNAL | | | ine Ratio | performed at [facility], [address] | | LAB | | | | [address], | | | | | | [place] [address] | | | | + + + + + + | Calcium | 9.3Comment: NOTE NEW | 8.5 - 10.5 | EXTERNAL | | | | REFERENCE RANGETesting | mg/dL | LAB | | | | performed at [facility], [address] | | | | | | [address], | | | | | | [place] [address] | | | | + + + [...] | | | | | | at [facility], [address] | | | | | | [address], | | | | | | [place] [address] | | | | + + + [...] + +---------+ + + External Lab: CBC (10/18/2014 4:13 AM PST) + + + + + + | Component | Value | Ref Range | Performed | Pathologist | | | | | At | Signature | + + + + + + | WBC | 9.3Comment: Testing | 3.8 - 11.0 K/uL | EXTERNAL | | | | performed at [facility], [address] | | LAB | | | | [address], | | | | | | [place] [address] | | | | + + + + + + | Red Blood | 3.77 (L)Comment: Testing | 4.20 - 5.70 | EXTERNAL | | | Cells | performed at [facility], [address] | M/uL | LAB | | | Counted | [address], | | | | | | [place] [address] | | | | + + + + + + | Hemoglobin | 12.2 (L)Comment: Testing | 13.2 - 17.0 | EXTERNAL | | | | performed at [facility], [address] | g/dL | LAB | | | | [address], | | | | | | [place] [address] | | | | + + + + + + | Hematocrit, | 37.3 (L)Comment: Testing | 39.0 - 50.0 % | EXTERNAL | | | POC | performed at [facility], [address] | | LAB | | | | [address], | | | | | | [place] [address] | | | | + + + + + + | MCV | 98.9Comment: Testing | 80.0 - 100.0 fl | EXTERNAL | | | | performed at [facility], [address] | | LAB | | | | [address], | | | | | | [place] [address] | | | | + + + + + + | MCH | 32.3Comment: Testing | 27.0 - 34.0 pg | EXTERNAL | | | | performed at [facility], [address] | | LAB | | | [address], | | | | | | [place] [address] | | | | + + + + + + | MCHC | 32.6Comment: Testing | 32.0 - 35.5 | EXTERNAL | | | | performed at [facility], [address] | g/dL | LAB | | | | [address], | | | | | | [place] [address] | | | | + + + + + + | RDW-CV | 58.6 (H)Comment: Testing | 37 - 53 fl | EXTERNAL | | | | performed at [facility], [address] | | LAB | | | | [address], | | | | | | [place] [address] | | | | + + + + + + | Platelet | 274Comment: Testing | 150 - 400 K/uL | EXTERNAL | | | Count | performed at [facility], [address] | | LAB | | | Plasma | [address], | | | | | | [place] [address] | | | | + + + + + + | MPV | 8.1Comment: Testing | fl | EXTERNAL | | | | performed at [facility], [address] | | LAB | | | | [address], | | | | | | [place] [address] | | | | + + + + + + | Differentia | AUTOMATEDComment: | | EXTERNAL | | | l Type | Testing performed at | | LAB | | | | [facility], [address] | | | | | | [place] | | | | | | [address] | | | | + + + + + + | % Segmented | 71.7Comment: Testing | % | EXTERNAL | | | | performed at [facility], [address] | | LAB | | | Neutrophils | [address], | | | | | | [place] [address] | | | | + + + + + + | % | 15.9Comment: Testing | % | EXTERNAL | | | Lymphocytes | performed at [facility], [address] | | LAB | | | | [address], | | | | | | [place] [address] | | | | + + + + + + | % Monocytes | 9.3Comment: Testing | % | EXTERNAL | | | | performed at [facility], [address] | | LAB | | | [address], | | | | | | [place] [address] | | | | + + + + + + | % | 2.4Comment: Testing | % | EXTERNAL | | | Eosinophils | performed at [facility], [address] | | LAB | | | | [address], | | | | | | [place] [address] | | | | + + + + + + | % Basophils | 0.7Comment: Testing | % | EXTERNAL | | | | performed at [facility], [address] | | LAB | | | | [address], | | | | | | [place] [address] | | | | + + + + + + | Absolute | 6.7Comment: Testing | 1.9 - 7.4 K/uL | EXTERNAL | | | Segmented | performed at [facility], [address] | | LAB | | | Neutrophils | [address], | | | | | | [place] [address] | | | | + + + + + + | Absolute | 1.5Comment: Testing | 1.0 - 3.9 K/uL | EXTERNAL | | | Lymphocytes | performed at [facility], [address] | | LAB | | | | [address], | | | | | | [place] [address] | | | | + + + + + + | Absolute | 0.9 (H)Comment: Testing | 0 - 0.8 K/uL | EXTERNAL | | | Monocytes | performed at [facility], [address] | | LAB | | | | [address], | | | | | | [place] [address] | | | | + + + + + + | Absolute | 0.2Comment: Testing | 0 - 0.5 K/uL | EXTERNAL | | | Eosinophils | performed at [facility], [address] | | LAB | | | | [address], | | | | | | [place] [address] | | | | + + + + + + | Absolute | 0.1Comment: Testing | 0 - 0.1 K/uL | EXTERNAL | | | Basophils | performed at [facility], [address] | | LAB | | | | [address], | | | | | | [place] [address] | | | | + + + + + + + + | Specimen | + + | Blood specimen | | (specimen) | + + + +---------+ + + | Performing | Address | City/State/Zipcode | Phone Number | | Organization | | | | + +---------+ + + | EXTERNAL LAB | | | | + +---------+ + + Magnesium (10/18/2014 4:13 AM PST) + + + + + + | Component | Value | Ref Range | Performed | Pathologist | | | | | At | Signature | + + + + + + | Magnesium | 2.4Comment: Testing | 1.7 - 2.4 mg/dL | EXTERNAL | | | | performed at [facility];[address] | | LAB | | | | [address] [facility];[place], [place] | | | | | | [address] | | | | + + + + + + + + | Specimen | + + | Blood specimen | | (specimen) | + + + +---------+ + + | Performing | Address | City/State/Zipcode | Phone Number | | Organization | | | | + +---------+ + + | EXTERNAL LAB | | | | + +---------+ + + Basic Metabolic Panel (10/18/2014 4:13 AM PST) + + + + + + | Component | Value | Ref Range | Performed | Pathologist | | | | | At | Signature | + + + + + + | Na | 135Comment: Testing | 135 - 143 | EXTERNAL | | | | performed at [facility];[address] | mmol/L | LAB | | | | [address];[place] | | | | | | [address] | | | | + + + + + + | K | 4.0Comment: Testing | 3.5 - 4.9 | EXTERNAL | | | | performed at [facility];[address] | mmol/L | LAB | | | | [address];[place] | | | | | | [address] | | | | + + + + + + | Cl | 102Comment: Testing | 99 - 109 mmol/L | EXTERNAL | | | | performed at [facility];[address] | | LAB | | | | [address];[place] | | | | | | [address] | | | | + + + + + + | CO2 | 27Comment: Testing | 23 - 32 mmol/L | EXTERNAL | | | | performed at [facility];[address] | | LAB | | | | [address];[place] | | | | | | [address] | | | | + + + + + + | Anion Gap | 10Comment: Testing | 5 - 20 mmol/L | EXTERNAL | | | | performed at [facility];[address] | | LAB | | | | [address];[place] | | | | | | [address] | | | | + + + + + + | Glucose, | 128 (H)Comment: Testing | 65 - 99 mg/dL | EXTERNAL | | | Fasting | performed at [facility];[address] | | LAB | | | | [address];[place] | | | | | | [address] | | | | + + + + + + | BUN | 9Comment: Testing | 8 - 25 mg/dL | EXTERNAL | | | | performed at [facility];[address] | | LAB | | | | [address];[place] | | | | | | [address] | | | | + + + + + + | Creatinine | 0.78Comment: Testing | 0.70 - 1.30 | EXTERNAL | | | | performed at [facility];[address] | mg/dL | LAB | | | | [address];[place] | | | | | | [id number] | | | | + + + + + + | BUN/Creatin | 12Comment: Testing | | EXTERNAL | | | ine Ratio | performed at [facility];[address] | | LAB | | | | [address];[place] | | | | | | [id number] | | | | + + + + + + | Calcium | 8.4 (L)Comment: NOTE NEW | 8.5 - 10.5 | EXTERNAL | | | | REFERENCE RANGETesting | mg/dL | LAB | | | | performed at [facility];[address] | | | | | | [address];[place] | | | | | | [address] | | | | + + + [...] | | | | | | at [facility];[address] [facility] | | | | | | [address];[place] [address] | | | | + + + [...] +---------+ + + CT Head wo Contrast (10/17/2014 6:09 AM PST) + + | Specimen | + + | | + + + + + | Impressions | Performed At | + + + | Unchanged head CT compared to 10/16/2014. [facility] | | | Electronically signed by Mariya Calzada MD on Oct 17 2014 7:38AM | | | Referring Provider Line: [phone] ID: [id number] | | + + + + + + | Narrative | Performed At | + + + | EXAM: CT HEAD EXAM DATE: 10/17/2014 06:10 AM. CLINICAL | | | HISTORY: Head injury. COMPARISON: 10/16/2014. TECHNIQUE: | | | Multiaxial CT images were obtained from the foramen magnum to the | | | vertex. IV contrast: None. Reformats: Coronal. FINDINGS: Again | | | demonstrated is a right-sided craniectomy involving of the entire | | | right frontal parietal skull . There is extra-axial hyper and | | | hypoechoic fluid on the right . Right-sided cerebral edema is present | | | with brain extending outside of its typical cavity . There is some | | | loss of ugarte-white differentiation in the right posterior inferior | | | parietal region similar to the prior examination. A small amount of | | | hemorrhage in the right posterior fossa could be subarachnoid or | | | intraparenchymal. Leftward midline shift is 7 mm compared to 7 mm on | | | the prior examination. Air and hemorrhage is seen in the right scalp | | | at the surgical site. There is also some low-density fluid outside of | | | the brain cavity that may be CSF. The thickness is similar to the | | | prior examination at 1 cm. Mild subcutaneous emphysema in the right | | | scalp has mildly decreased. Surgical skin diamond are present. Mass | | | effect is seen on the right lateral ventricle. The basal cisterns are | | | patent. | | + + + + + | Procedure Note | + + | Rosalio, Rad Conversion - 05/05/2019 12:20 AM PDT EXAM:CT HEAD EXAM DATE: 10/17/2014 06:10 | | AM. CLINICAL HISTORY: Head injury. COMPARISON: 10/16/2014. TECHNIQUE: Multiaxial CT | | images were obtained from the foramen magnum to the vertex. IV contrast: None. | | Reformats: Coronal. FINDINGS:Again demonstrated is a right-sided craniectomy involving | | of the entire right frontal parietal skull . There is extra-axial hyper and hypoechoic | | fluid on the right . Right-sided cerebral edema is present with brain extending outside | | of its typical cavity . There is some loss of ugarte-white differentiation in the right | | posterior inferior parietal region similar to the prior examination. A small amount of | | hemorrhage in the right posterior fossa could be subarachnoid or intraparenchymal. | | Leftward midline shift is 7 mm compared to 7 mm on the prior examination. Air and | | hemorrhage is seen in the right scalp at the surgical site. There is also some | | low-density fluid outside of the brain cavity that may be CSF. The thickness is similar | | to the prior examination at 1 cm. Mild subcutaneous emphysema in the right scalp has | | mildly decreased. Surgical skin diamond are present. Mass effect is seen on the right | | lateral ventricle. The basal cisterns are patent. IMPRESSION: Unchanged head CT compared | | to 10/16/2014. RADIA Electronically signed by Mariya Calzada MD on Oct 17 2014 | | 7:38AM Referring Provider Line: [phone] ID: [id number] | | | |IMPRESSION: | |Unchanged head CT compared to 10/16/2014. | | | |RADIA | | | | Electronically signed by Mariya Calzada MD on Oct 17 2014 7:38AM Referring Provider Dian e: [phone] ID: [id number] | + + Potassium (10/16/2014 5:47 PM PST) + + + + + + | Component | Value | Ref Range | Performed | Pathologist | | | | | At | Signature | + + + + + + | K | 4.2Comment: Testing | 3.5 - 4.9 | EXTERNAL | | | | performed at [facility];[address] | mmol/L | LAB | | | | [address];[place], [place] | | | | | | [address] | | | | + + + [...] +---------+ + + CT Head wo Contrast (10/16/2014 5:05 AM PST) + + | Specimen | + + | | + + + + + | Impressions | Performed At | + + + | Right-sided drain has been removed. No evidence of interval | | | hemorrhage or worsening mass effect. Hypodense subdural collection | | | over the right frontal convexity has increased in size. Serial | | | followup suggested. No other significant interval change. | | | Electronically signed by Jimbo Mckeon MD on Oct 16 2014 6:08AM | | | Referring Provider Line: [phone] ID: [id number] | | + + + + + + | Narrative | Performed At | + + + | Head CT without contrast. INDICATION: Decompressive craniectomy | | | for head trauma Technique: head CT without contrast. | | | COMPARISON: 10/14/2014 FINDINGS: Large decompressive craniectomy | | | overlies the frontal, parietal and temporal lobes. The surgical drain | | | overlying the craniectomy site has been removed. There is a hypodense | | | subpleural collection overlying the right frontal convexity now | | | measuring a to 11 mm in thickness, previously on the order of 6 mm. | | | There is midline shift to the left by 6 mm, not changed significantly | | | when remeasured. Stable small, mixed density subdural collection over | | | the right tentorium. Basal cisterns remain visible. No | | | hydrocephalus. | | + + + + + | Procedure Note | + + | Rosalio, Rad Conversion - 05/05/2019 12:[address] without contrast. INDICATION: | | Decompressive craniectomy for head trauma Technique: head CT without contrast. | | COMPARISON: 10/14/2014 FINDINGS:Large decompressive craniectomy overlies the frontal, | | parietal and temporal lobes. The surgical drain overlying the craniectomy site has been | | removed. There is a hypodense subpleural collection overlying the right frontal | | convexity now measuring a to 11 mm in thickness, previously on the order of 6 mm. There | | is midline shift to the left by 6 mm, not changed significantly when remeasured. Stable | | small, mixed density subdural collection over the right tentorium. Basal cisterns remain | | visible. No hydrocephalus. IMPRESSION: Right-sided drain has been removed. No evidence | | of interval hemorrhage or worsening mass effect. Hypodense subdural collection over the | | right frontal convexity has increased in size. Serial followup suggested. No other | | significant interval change. Electronically signed by Jimbo Mckeon MD on Oct 16 2014 | | 6:08AM Referring Provider Line: [phone] ID: [id number] | | | |IMPRESSION: | | | |Right-sided drain has been removed. No evidence of interval hemorrhage or worsening mass ef fect. Hypodense subdural collection over the right frontal convexity has increased in size. Serial followup suggested. No other significant interval change. | | | | Electronically signed by Jimbo Mckeon MD on Oct 16 2014 6:08AM Referring Provider Line: [phone] ID: [id number] | + + External Lab: CBC (10/16/2014 4:09 AM PST) + + + + + + | Component | Value | Ref Range | Performed | Pathologist | | | | | At | Signature | + + + + + + | WBC | 8.7Comment: Testing | 3.8 - 11.0 K/uL | EXTERNAL | | | | performed at [facility], [address] | | LAB | | | | [address], | | | | | | [place] [address] | | | | + + + + + + | Red Blood | 3.62 (L)Comment: Testing | 4.20 - 5.70 | EXTERNAL | | | Cells | performed at [facility], [address] | M/uL | LAB | | | Counted | [address], | | | | | | [place] [address] | | | | + + + + + + | Hemoglobin | 11.9 (L)Comment: Testing | 13.2 - 17.0 | EXTERNAL | | | | performed at [facility], [address] | g/dL | LAB | | | | [address], | | | | | | [place] [address] | | | | + + + + + + | Hematocrit, | 36.0 (L)Comment: Testing | 39.0 - 50.0 % | EXTERNAL | | | POC | performed at [facility], [address] | | LAB | | | | [address], | | | | | | [place] [address] | | | | + + + + + + | MCV | 99.4Comment: Testing | 80.0 - 100.0 fl | EXTERNAL | | | | performed at [facility], [address] | | LAB | | | | [address], | | | | | | [place] [address] | | | | + + + + + + | MCH | 32.9Comment: Testing | 27.0 - 34.0 pg | EXTERNAL | | | | performed at [facility], [address] | | LAB | | | | [address], | | | | | | [place] [address] | | | | + + + + + + | MCHC | 33.0Comment: Testing | 32.0 - 35.5 | EXTERNAL | | | | performed at [facility], [address] | g/dL | LAB | | | | [address], | | | | | | [place] [address] | | | | + + + + + + | RDW-CV | 59.5 (H)Comment: Testing | 37 - 53 fl | EXTERNAL | | | | performed at [facility], [address] | | LAB | | | | [address], | | | | | | [place] [address] | | | | + + + + + + | Platelet | 201Comment: Testing | 150 - 400 K/uL | EXTERNAL | | | Count | performed at [facility], [address] | | LAB | | | Plasma | [address], | | | | | | [place] [address] | | | | + + + + + + | MPV | 8.2Comment: Testing | fl | EXTERNAL | | | | performed at [facility], [address] | | LAB | | | | [address], | | | | | | [place] [address] | | | | + + + + + + | Differentia | AUTOMATEDComment: | | EXTERNAL | | | l Type | Testing performed at | | LAB | | | | [facility], [address] | | | | | | [place] | | | | | | [address] | | | | + + + + + + | % Segmented | 77.8Comment: Testing | % | EXTERNAL | | | | performed at [facility], [address] | | LAB | | | Neutrophils | [address], | | | | | | [place] [address] | | | | + + + + + + | % | 9.6Comment: Testing | % | EXTERNAL | | | Lymphocytes | performed at [facility], [address] | | LAB | | | | [address], | | | | | | [place] [address] | | | | + + + + + + | % Monocytes | 10.5Comment: Testing | % | EXTERNAL | | | | performed at [facility], [address] | | LAB | | | | [address], | | | | | | [place] [address] | | | | + + + + + + | % | 1.6Comment: Testing | % | EXTERNAL | | | Eosinophils | performed at [facility], [address] | | LAB | | | | [address], | | | | | | [place] [address] | | | | + + + + + + | % Basophils | 0.5Comment: Testing | % | EXTERNAL | | | | performed at [facility], [address] | | LAB | | | | [address], | | | | | | [place] [address] | | | | + + + + + + | Absolute | 6.8Comment: Testing | 1.9 - 7.4 K/uL | EXTERNAL | | | Segmented | performed at [facility], [address] | | LAB | | | Neutrophils | [address], | | | | | | [place] [address] | | | | + + + + + + | Absolute | 0.8 (L)Comment: Testing | 1.0 - 3.9 K/uL | EXTERNAL | | | Lymphocytes | performed at [facility], [address] | | LAB | | | | [address], | | | | | | [place] [address] | | | | + + + + + + | Absolute | 0.9 (H)Comment: Testing | 0 - 0.8 K/uL | EXTERNAL | | | Monocytes | performed at [facility], [address] | | LAB | | | | [address], | | | | | | [place] [address] | | | | + + + + + + | Absolute | 0.1Comment: Testing | 0 - 0.5 K/uL | EXTERNAL | | | Eosinophils | performed at [facility], [address] | | LAB | | | | [address], | | | | | | [place] [address] | | | | + + + + + + | Absolute | 0.0Comment: Testing | 0 - 0.1 K/uL | EXTERNAL | | | Basophils | performed at [facility], [address] | | LAB | | | | [address], | | | | | | [place] [address] | | | | + + + + + + + + | Specimen | + + | Blood specimen | | (specimen) | + + + +---------+ + + | Performing | Address | City/State/Zipcode | Phone Number | | Organization | | | | + +---------+ + + | EXTERNAL LAB | | | | + +---------+ + + Basic Metabolic Panel (10/16/2014 4:09 AM PST) + + + + + + | Component | Value | Ref Range | Performed | Pathologist | | | | | At | Signature | + + + + + + | Na | 138Comment: Testing | 135 - 143 | EXTERNAL | | | | performed at [facility], [address] | mmol/L | LAB | | | | [address], | | | | | | [place] [address] | | | | + + + + + + | K | 3.4 (L)Comment: Testing | 3.5 - 4.9 | EXTERNAL | | | | performed at [facility], [address] | mmol/L | LAB | | | | [address], | | | | | | [place] [address] | | | | + + + + + + | Cl | 102Comment: Testing | 99 - 109 mmol/L | EXTERNAL | | | | performed at [facility], [address] | | LAB | | | | [address], | | | | | | [place] [address] | | | | + + + + + + | CO2 | 27Comment: Testing | 23 - 32 mmol/L | EXTERNAL | | | | performed at [facility], [address] | | LAB | | | | [address], | | | | | | [place] [address] | | | | + + + + + + | Anion Gap | 12Comment: Testing | 5 - 20 mmol/L | EXTERNAL | | | | performed at [facility], [address] | | LAB | | | | [address], | | | | | | [place] [address] | | | | + + + + + + | Glucose, | 151 (H)Comment: Testing | 65 - 99 mg/dL | EXTERNAL | | | Fasting | performed at [facility], [address] | | LAB | | | | [address], | | | | | | [place] [address] | | | | + + + + + + | BUN | 8Comment: Testing | 8 - 25 mg/dL | EXTERNAL | | | | performed at [facility], [address] | | LAB | | | | [address], | | | | | | [place] [address] | | | | + + + + + + | Creatinine | 0.44 (L)Comment: Testing | 0.70 - 1.30 | EXTERNAL | | | | performed at [facility], [address] | mg/dL | LAB | | | | [address], | | | | | | [place] [address] | | | | + + + + + + | BUN/Creatin | 18Comment: Testing | | EXTERNAL | | | ine Ratio | performed at [facility], [address] | | LAB | | | | [address], | | | | | | [place] [address] | | | | + + + + + + | Calcium | 9.1Comment: NOTE NEW | 8.5 - 10.5 | EXTERNAL | | | | REFERENCE RANGETesting | mg/dL | LAB | | | | performed at [facility], [address] | | | | | | [facility], | | | | | | [place] [address] | | | | + + + [...] | | | | | | at [facility], [address] | | | | | | [facility], | | | | | | [place] [address] | | | | + + + + + + + + | Specimen | + + | Blood specimen | | (specimen) | + + + +---------+ + + | Performing | Address | City/State/Zipcode | Phone Number | | Organization | | | | + +---------+ + + | EXTERNAL LAB | | | | + +---------+ + + Potassium (10/15/2014 3:06 PM PST) + + + + + + | Component | Value | Ref Range | Performed | Pathologist | | | | | At | Signature | + + + + + + | K | 3.4 (L)Comment: SLT | 3.5 - 4.9 | EXTERNAL | | | | HEMOLYSISTesting | mmol/L | LAB | | | | performed at [facility] | | | | | | [address];[place], [place] | | | | | | [address] | | | | + + + [...] + +---------+ + + External Lab: CBC (10/15/2014 5:59 AM PST) + + + + + + | Component | Value | Ref Range | Performed | Pathologist | | | | | At | Signature | + + + + + + | WBC | 8.2Comment: Testing | 3.8 - 11.0 K/uL | EXTERNAL | | | | performed at [facility], [address] | | LAB | | | | [address], | | | | | | [place] [address] | | | | + + + + + + | Red Blood | 3.36 (L)Comment: Testing | 4.20 - 5.70 | EXTERNAL | | | Cells | performed at [facility], [address] | M/uL | LAB | | | Counted | [address], | | | | | | [place] [address] | | | | + + + + + + | Hemoglobin | 11.1 (L)Comment: Testing | 13.2 - 17.0 | EXTERNAL | | | | performed at [facility], [address] | g/dL | LAB | | | | [address], | | | | | | [place] [address] | | | | + + + + + + | Hematocrit, | 34.0 (L)Comment: Testing | 39.0 - 50.0 % | EXTERNAL | | | POC | performed at [facility], [address] | | LAB | | | | [address], | | | | | | [place] [address] | | | | + + + + + + | MCV | 101.0 (H)Comment: | 80.0 - 100.0 fl | EXTERNAL | | | | Testing performed at | | LAB | | | | [facility], [address] | | | | | | [place] | | | | | | [address] | | | | + + + + + + | MCH | 33.1Comment: Testing | 27.0 - 34.0 pg | EXTERNAL | | | | performed at [facility], [address] | | LAB | | | | [address], | | | | | | [place] [address] | | | | + + + + + + | MCHC | 32.7Comment: Testing | 32.0 - 35.5 | EXTERNAL | | | | performed at [facility], [address] | g/dL | LAB | | | | [address], | | | | | | [place] [address] | | | | + + + + + + | RDW-CV | 59.1 (H)Comment: Testing | 37 - 53 fl | EXTERNAL | | | | performed at [facility], [address] | | LAB | | | | [address], | | | | | | [place] [address] | | | | + + + + + + | Platelet | 162Comment: Testing | 150 - 400 K/uL | EXTERNAL | | | Count | performed at [facility], [address] | | LAB | | | Plasma | [address], | | | | | | [place] [address] | | | | + + + + + + | MPV | 8.6Comment: Testing | fl | EXTERNAL | | | | performed at [facility], [address] | | LAB | | | | [address], | | | | | | [place] [address] | | | | + + + + + + | Differentia | AUTOMATEDComment: | | EXTERNAL | | | l Type | Testing performed at | | LAB | | | | [facility], [address] | | | | | | [place] | | | | | | [address] | | | | + + + + + + | % Segmented | 72.7Comment: Testing | % | EXTERNAL | | | | performed at [facility], [address] | | LAB | | | Neutrophils | [address], | | | | | | [place] [address] | | | | + + + + + + | % | 12.1Comment: Testing | % | EXTERNAL | | | Lymphocytes | performed at [facility], [address] | | LAB | | | | [address], | | | | | | [place] [address] | | | | + + + + + + | % Monocytes | 13.0Comment: Testing | % | EXTERNAL | | | | performed at [facility], [address] | | LAB | | | | [address], | | | | | | [place] [address] | | | | + + + + + + | % | 1.7Comment: Testing | % | EXTERNAL | | | Eosinophils | performed at [facility], [address] | | LAB | | | [address], | | | | | | [place] [address] | | | | + + + + + + | % Basophils | 0.5Comment: Testing | % | EXTERNAL | | | | performed at [facility], [address] | | LAB | | | | [address], | | | | | | [place] [address] | | | | + + + + + + | Absolute | 5.9Comment: Testing | 1.9 - 7.4 K/uL | EXTERNAL | | | Segmented | performed at [facility], [address] | | LAB | | | Neutrophils | [address], | | | | | | [place] [address] | | | | + + + + + + | Absolute | 1.0Comment: Testing | 1.0 - 3.9 K/uL | EXTERNAL | | | Lymphocytes | performed at [facility], [address] | | LAB | | | | [address], | | | | | | [place] [address] | | | | + + + + + + | Absolute | 1.1 (H)Comment: Testing | 0 - 0.8 K/uL | EXTERNAL | | | Monocytes | performed at [facility], [address] | | LAB | | | | [address], | | | | | | [place] [address] | | | | + + + + + + | Absolute | 0.1Comment: Testing | 0 - 0.5 K/uL | EXTERNAL | | | Eosinophils | performed at [facility], [address] | | LAB | | | | [address], | | | | | | [place] [address] | | | | + + + + + + | Absolute | 0.0Comment: Testing | 0 - 0.1 K/uL | EXTERNAL | | | Basophils | performed at [facility], [address] | | LAB | | | | [address], | | | | | | [place] [address] | | | | + + + + + + + + | Specimen | + + | Blood specimen | | (specimen) | + + + +---------+ + + | Performing | Address | City/State/Zipcode | Phone Number | | Organization | | | | + +---------+ + + | EXTERNAL LAB | | | | + +---------+ + + Basic Metabolic Panel (10/15/2014 5:59 AM PST) + + + + + + | Component | Value | Ref Range | Performed | Pathologist | | | | | At | Signature | + + + + + + | Na | 137Comment: Testing | 135 - 143 | EXTERNAL | | | | performed at [facility], [address] | mmol/L | LAB | | | | [address], | | | | | | [place] [address] | | | | + + + + + + | K | 3.8Comment: Testing | 3.5 - 4.9 | EXTERNAL | | | | performed at [facility], [address] | mmol/L | LAB | | | | [address], | | | | | | [place] [address] | | | | + + + + + + | Cl | 105Comment: Testing | 99 - 109 mmol/L | EXTERNAL | | | | performed at [facility], [address] | | LAB | | | | [address], | | | | | | [place] [address] | | | | + + + + + + | CO2 | 28Comment: Testing | 23 - 32 mmol/L | EXTERNAL | | | | performed at [facility], [address] | | LAB | | | | [address], | | | | | | [place] [address] | | | | + + + + + + | Anion Gap | 8Comment: Testing | 5 - 20 mmol/L | EXTERNAL | | | | performed at [facility], [address] | | LAB | | | | [address], | | | | | | [place] [address] | | | | + + + + + + | Glucose, | 112 (H)Comment: Testing | 65 - 99 mg/dL | EXTERNAL | | | Fasting | performed at [facility], [address] | | LAB | | | | [address], | | | | | | [place] [address] | | | | + + + + + + | BUN | 8Comment: Testing | 8 - 25 mg/dL | EXTERNAL | | | | performed at [facility], [address] | | LAB | | | | [address], | | | | | | [place] [address] | | | | + + + + + + | Creatinine | 0.51 (L)Comment: Testing | 0.70 - 1.30 | EXTERNAL | | | | performed at [facility], [address] | mg/dL | LAB | | | | [address], | | | | | | [place] [address] | | | | + + + + + + | BUN/Creatin | 16Comment: Testing | | EXTERNAL | | | ine Ratio | performed at [facility], [address] | | LAB | | | | [address], | | | | | | [place] [address] | | | | + + + + + + | Calcium | 8.5Comment: NOTE NEW | 8.5 - 10.5 | EXTERNAL | | | | REFERENCE RANGETesting | mg/dL | LAB | | | | performed at [facility], [address] | | | | | | [address], | | | | | | [place] [address] | | | | + + + [...] | | | | | | at [facility], [address] | | | | | | [address], | | | | | | [place] [address] | | | | + + + + + + + + | Specimen | + + | Blood specimen | | (specimen) | + + + +---------+ + + | Performing | Address | City/State/Zipcode | Phone Number | | Organization | | | | + +---------+ + + | EXTERNAL LAB | | | | + +---------+ + + Basic Metabolic Panel (10/14/2014 10:58 PM PST) + + + + + + | Component | Value | Ref Range | Performed | Pathologist | | | | | At | Signature | + + + + + + | Na | 139Comment: Testing | 135 - 143 | EXTERNAL | | | | performed at [facility];[address] | mmol/L | LAB | | | | [address];[place] | | | | | | [address] | | | | + + + + + + | K | 3.5Comment: Testing | 3.5 - 4.9 | EXTERNAL | | | | performed at [facility];[address] | mmol/L | LAB | | | | [address];[place] | | | | | | [address] | | | | + + + + + + | Cl | 103Comment: Testing | 99 - 109 mmol/L | EXTERNAL | | | | performed at [facility];[address] | | LAB | | | | [address];[place] | | | | | | [address] | | | | + + + + + + | CO2 | 26Comment: Testing | 23 - 32 mmol/L | EXTERNAL | | | | performed at [facility];[address] | | LAB | | | | [address];[place] | | | | | | [address] | | | | + + + + + + | Anion Gap | 13Comment: Testing | 5 - 20 mmol/L | EXTERNAL | | | | performed at [facility];[address] | | LAB | | | | [address];[place] | | | | | | [address] | | | | + + + + + + | Glucose, | 134 (H)Comment: Testing | 65 - 99 mg/dL | EXTERNAL | | | Fasting | performed at [facility];[address] | | LAB | | | | [address];[place] | | | | | | [address] | | | | + + + + + + | BUN | 9Comment: Testing | 8 - 25 mg/dL | EXTERNAL | | | | performed at [facility];[address] | | LAB | | | | [address];[place] | | | | | | [address] | | | | + + + + + + | Creatinine | 0.75Comment: Testing | 0.70 - 1.30 | EXTERNAL | | | | performed at [facility];[address] | mg/dL | LAB | | | | [address];[place] | | | | | | [address] | | | | + + + + + + | BUN/Creatin | 12Comment: Testing | | EXTERNAL | | | ine Ratio | performed at [facility];[address] | | LAB | | | | [address];[place] | | | | | | [address] | | | | + + + + + + | Calcium | 8.3 (L)Comment: NOTE NEW | 8.5 - 10.5 | EXTERNAL | | | | REFERENCE RANGETesting | mg/dL | LAB | | | | performed at [facility];[address] | | | | | | [address];[place] | | | | | | [address] | | | | + + + [...] | | | | | | at [facility];[address] [place] [address] | | | | | | [facility];[place] [address] | | | | + + + + + + + + | Specimen | + + | Blood specimen | | (specimen) | + + + +---------+ + + | Performing | Address | City/State/Zipcode | Phone Number | | Organization | | | | + +---------+ + + | EXTERNAL LAB | | | | + +---------+ + + Potassium (10/14/2014 9:09 PM PST) + + + + + + | Component | Value | Ref Range | Performed | Pathologist | | | | | At | Signature | + + + + + + | K | 3.1 (L)Comment: Testing | 3.5 - 4.9 | EXTERNAL | | | | performed at [facility];[address] | mmol/L | LAB | | | | [address];[place], [place] | | | | | | [address] | | | | + + + + + + + + | Specimen | + + | Blood specimen | | (specimen) | + + + +---------+ + + | Performing | Address | City/State/Zipcode | Phone Number | | Organization | | | | + +---------+ + + | EXTERNAL LAB | | | | + +---------+ + + POC Glucose (10/14/2014 9:05 PM PST) + + + + + + | Component | Value | Ref Range | Performed | Pathologist | | | | | At | Signature | + + + + + + | Glucose, | 132 (H)Comment: Testing | 65 - 99 mg/dL | EXTERNAL | | | Fingerstick | performed at [facility];[address] | | LAB | | | | [address];[place] | | | | | | [address] | | | | + + + + + + + + | Specimen | + + | | + + + +---------+ + + | Performing | Address | City/State/Zipcode | Phone Number | | Organization | | | | + +---------+ + + | EXTERNAL LAB | | | | + +---------+ + + ECHO Complete (10/14/2014 9:33 AM PST) + + | Specimen | + + | | + + + + + | Impressions | Performed At | + + + | 1. This was a technically difficult study with suboptimal views. 2. | | | Overall left ventricular systolic function is normal with, an EF | | | between 65 - 70 %. 3. Left ventricular wall thickness is normal. 4. | | | The right ventricle is moderately enlarged measuring between 3.8 - 4.1 | | | cm. | | + + + + + + | Narrative | Performed At | + + + | Patient Name: TONY FORTUNE Date of : 1960 | | | Performing Physician: VISH ACOSTA | | | MD | | | INDICATIONS shortness of breath CONCLUSIONS | | | 1. This was a technically difficult study with suboptimal | | | views. 2. Overall left ventricular systolic function is normal with, | | | an EF between 65 - 70 %. 3. Left ventricular wall thickness is | | | normal. 4. The right ventricle is moderately enlarged measuring | | | between 3.8 - 4.1 cm. FINDINGS -------- ECG rhythm: Resting | | | bradycardia (HR<60bpm). Study: A 2-dimensional transthoracic | | | echocardiogram with m-mode, spectral and color flow Doppler was | | | perfomed. Study: This was a technically difficult study with | | | suboptimal views. Left Ventricle: Overall left ventricular systolic | | | function is normal with, an EF between 65 - 70 %. Left Ventricle: The | | | left ventricle cavity size is normal. Left Ventricle: Left | | | ventricular wall thickness is normal. Left Ventricle: The diastolic | | | filling pattern is normal for the age of the patient. Right | | | Ventricle: The right ventricle is moderately enlarged measuring | | | between 3.8 - 4.1 cm. Left Atrium: The left atrial size is normal. | | | Right Atrium: The right atrial size is normal. Aortic Valve: The | | | aortic valve was not well visualized. Aortic Valve: There is no | | | evidence of aortic regurgitation. Aortic Valve: There is no evidence | | | of aortic stenosis. Mitral Valve: The mitral valve is normal. Mitral | | | Valve: No mitral regurgitation. Mitral Valve: Mild mitral annular | | | calcification present. Tricuspid Valve: The tricuspid valve appears | | | structurally normal. Tricuspid Valve: Trace tricuspid regurgitation | | | present. Tricuspid Valve: Right ventricular systolic pressure | | | (pulmonary artery systolic pressure) is normal at < 35 mmHg. | | | Tricuspid Valve: There is no evidence of pulmonary hypertension. | | | Pulmonic Valve: The pulmonic valve was not well visualized. | | | Pericardium: Anterior echo free space present. IVC/Hepatic Veins: The | | | IVC is normal size (1.5-2.5cm) and collapses >50% with sniff, | | | consistent with central venous pressures of 5-10mmHg. MEASUREMENTS | | | Ao Diam: 3.52 cm IVC: 2.34 cm LA Diam: | | | 4.31 cm LA Major: 4.31 cm EDV(Teich): 96.52 ml IVSd: 0.71 | | | cm LVIDd: 4.58 cm LVPWd: 0.76 cm LVOT Diam: 2.21 cm %FS: | | | 38.49 % EF(Teich): 68.86 % ESV(Teich): 30.04 ml IVSs: | | | 0.88 cm LVIDs: 2.81 cm LVPWs: 1.14 cm SV(Teich): 66.47 ml | | | RA Major: 4.78 cm RVIDd: 3.48 cm LAESV(A-L): 54.26 ml | | | LAESV Index (A-L): 25.12 ml/m2 LAAs A2C: 17.63 cm2 LAESV A-L | | | A2C: 49.96 ml LAESV MOD A2C: 47.06 ml LALs A2C: 5.28 cm | | | LAAs A4C: 18.21 cm2 LAESV A-L A4C: 56.04 ml LAESV MOD A4C: | | | 48.84 ml LALs A4C: 5.02 cm D-E Excursion: 1.80 cm E-F Patrick: | | | 0.08 m/s EPSS: 0.51 cm HR: 50.85 BPM AV maxP.46 | | | mmHg AV meanP.08 mmHg AV Vmax: 1.16 m/s AV Vmean: 0.83 | | | m/s AV VTI: 24.68 cm DUONG Vmax: 3.04 cm2 DUONG (VTI): 2.96 | | | cm2 LVCI Dopp: 1.67 l/minm2 LVCO Dopp: 3.62 l/min HR: | | | 49.54 BPM LVOT maxP.42 mmHg LVOT meanP.64 mmHg LVSI | | | Dopp: 33.84 ml/m2 LVSV Dopp: 73.09 ml LVOT Vmax: 0.92 m/s | | | LVOT Vmean: 0.57 m/s LVOT VTI: 19.00 cm MCO: 425.60 ms MV | | | A Odette: 0.47 m/s MV DecT: 230.39 ms MV E Odette: 0.86 m/s MV | | | E/A Ratio: 1.81 MV PHT: 69.55 ms MVA By PHT: 3.16 cm2 MV A | | | Dur: 69.20 ms IVRT: 100.34 ms Septal e': 0.10 m/s Septal | | | E/e': 7.83 Lateral e': 0.14 m/s Lateral E/e': 5.83 HR: | | | 49.54 BPM PV maxP.01 mmHg PV meanP.59 mmHg PV Vmax: | | | 0.86 m/s PV Vmean: 0.59 m/s PV VTI: 16.11 cm RAP: 10 | | | mmHg RVSP: 23.89 mmHg TR maxP.89 mmHg TR Vmax: 1.86 | | | m/s TV A Odette: 0.19 m/s TV Dec Patrick: 1.11 m/s2 TV Dec Time: | | | 421.97 ms TV E Odette: 0.47 m/s TV E/A Ratio: 2.39 | | | Metal Roofing Mechanic: PKAO Authenticated by: VISH ACOSTA MD Report | | | Date/Time: 10-14-2014 18:41:15 | | + + + + + | Procedure Note | + + | Marlon Santamaria Conversion - 05/05/2019 12:20 AM PDT Patient Name: Steve FORTUNE | | of : 1960 Performing Physician: VISH ACOSTA | | INDICATIONS s | | hortness of breath CONCLUSIONS 1. This was a technically difficult study with | | suboptimal views.2. Overall left ventricular systolic function is normal with, an EF | | between 65 - 70 %.3. Left ventricular wall thickness is normal.4. The right ventricle is | | moderately enlarged measuring between 3.8 - 4.1 cm. FINDINGS--------ECG rhythm: Resting | | bradycardia (HR<60bpm).Study: A 2-dimensional transthoracic echocardiogram with m-mode, | | spectral and color flow Doppler was perfomed.Study: This was a technically difficult | | study with suboptimal views.Left Ventricle: Overall left ventricular systolic function | | is normal with, an EF between 65 - 70 %.Left Ventricle: The left ventricle cavity size | | is normal.Left Ventricle: Left ventricular wall thickness is normal.Left Ventricle: The | | diastolic filling pattern is normal for the age of the patient.Right Ventricle: The | | right ventricle is moderately enlarged measuring between 3.8 - 4.1 cm.Left Atrium: The | | left atrial size is normal.Right Atrium: The right atrial size is normal.Aortic Valve: | | The aortic valve was not well visualized.Aortic Valve: There is no evidence of aortic | | regurgitation.Aortic Valve: There is no evidence of aortic stenosis.Mitral Valve: The | | mitral valve is normal.Mitral Valve: No mitral regurgitation.Mitral Valve: Mild mitral | | annular calcification present.Tricuspid Valve: The tricuspid valve appears structurally | | normal.Tricuspid Valve: Trace tricuspid regurgitation present.Tricuspid Valve: Right | | ventricular systolic pressure (pulmonary artery systolic pressure) is normal at < 35 | | mmHg.Tricuspid Valve: There is no evidence of pulmonary hypertension.Pulmonic Valve: The | | pulmonic valve was not well visualized.Pericardium: Anterior echo free space | | present.IVC/Hepatic Veins: The IVC is normal size (1.5-2.5cm) and collapses >50% with | | sniff, consistent with central venous pressures of 5-10mmHg. MEASUREMENTS Ao | | Diam: 3.52 cmIVC: 2.34 cmLA Diam: 4.31 cmLA Major: 4.31 cmEDV(Teich): 96.52 | | mlIVSd: 0.71 cmLVIDd: 4.58 cmLVPWd: 0.76 cmLVOT Diam: 2.21 cm%FS: 38.49 | | %EF(Teich): 68.86 %ESV(Teich): 30.04 mlIVSs: 0.88 cmLVIDs: 2.81 cmLVPWs: 1.14 | | cmSV(Teich): 66.47 mlRA Major: 4.78 cmRVIDd: 3.48 cmLAESV(A-L): 54.26 mlLAESV | | Index (A-L): 25.12 ml/m2LAAs A2C: 17.63 [id number] A-L A2C: 49.96 mlLAESV MOD A2C: | | 47.06 mlLALs A2C: 5.28 cmLAAs A4C: 18.21 [id number] A-L A4C: 56.04 mlLAESV MOD A4C: | | 48.84 mlLALs A4C: 5.02 cmD-E Excursion: 1.80 cmE-F Patrick: 0.08 m/sEPSS: 0.51 | | cmHR: 50.85 BPMAV maxP.46 mmHgAV meanP.08 mmHgAV Vmax: 1.16 m/Dmitry Vmean: | | 0.83 m/Dmitry VTI: 24.68 cmAVA Vmax: 3.04 cm2AVA (VTI): 2.96 [id number] Dopp: 1.67 | | l/[id number] Dopp: 3.62 l/minHR: 49.54 BPMLVOT maxP.42 mmHgLVOT meanP.64 | | mmHgLVSI Dopp: 33.84 ml/m2LVSV Dopp: 73.09 mlLVOT Vmax: 0.92 m/sLVOT Vmean: 0.57 | | m/sLVOT VTI: 19.00 cmMCO: 425.60 msMV A Odette: 0.47 m/sMV DecT: 230.39 msMV E | | Odette: 0.86 m/sMV E/A Ratio: 1.81MV PHT: 69.55 msMVA By PHT: 3.16 cm2MV A Dur: | | 69.20 msIVRT: 100.34 msSeptal e': 0.10 m/sSeptal E/e': 7.83Lateral e': 0.14 | | m/sLateral E/e': 5.83HR: 49.54 BPMPV maxP.01 mmHgPV meanP.59 mmHgPV | | Vmax: 0.86 m/sPV Vmean: 0.59 m/sPV VTI: 16.11 cmRAP: 10 mmHgRVSP: 23.89 mmHgTR | | maxP.89 mmHgTR Vmax: 1.86 m/sTV A Odette: 0.19 m/sTV Dec Patrick: 1.11 m/s2TV | | Dec Time: 421.97 msTV E Odette: 0.47 m/sTV E/A Ratio: 2.39 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 This was a technically difficult study with suboptimal views.2. Overall | | left ventricular systolic function is normal with, an EF between 65 - 70 %.3. Left | | ventricular wall thickness is normal.4. The right ventricle is moderately enlarged | | measuring between 3.8 - 4.1 cm. | |IVC: 2.34 cm | |LA Diam: 4.31 cm | |LA Major: 4.31 cm | |EDV(Teich): 96.52 ml | |IVSd: 0.71 cm | |LVIDd: 4.58 cm | |LVPWd: 0.76 cm | |LVOT Diam: 2.21 cm | |%FS: 38.49 % | |EF(Teich): 68.86 % | |ESV(Teich): 30.04 ml | |IVSs: 0.88 cm | |LVIDs: 2.81 cm | |LVPWs: 1.14 cm | |SV(Teich): 66.47 ml | |RA Major: 4.78 cm | |RVIDd: 3.48 cm | |LAESV(A-L): 54.26 ml | |LAESV Index (A-L): 25.12 ml/m2 | |LAAs A2C: 17.63 cm2 | |LAESV A-L A2C: 49.96 ml | |LAESV MOD A2C: 47.06 ml | |LALs A2C: 5.28 cm | |LAAs A4C: 18.21 cm2 | |LAESV A-L A4C: 56.04 ml | |LAESV MOD A4C: 48.84 ml | |LALs A4C: 5.02 cm | |D-E Excursion: 1.80 cm | |E-F Patrick: 0.08 m/s | |EPSS: 0.51 cm | |HR: 50.85 BPM | |AV maxP.46 mmHg | |AV meanP.08 mmHg | |AV Vmax: 1.16 m/s | |AV Vmean: 0.83 m/s | |AV VTI: 24.68 cm | |DUONG Vmax: 3.04 cm2 | |DUONG (VTI): 2.96 cm2 | |LVCI Dopp: 1.67 l/minm2 | |LVCO Dopp: 3.62 l/min | |HR: 49.54 BPM | |LVOT maxP.42 mmHg | |LVOT meanP.64 mmHg | |LVSI Dopp: 33.84 ml/m2 | |LVSV Dopp: 73.09 ml | |LVOT Vmax: 0.92 m/s | |LVOT Vmean: 0.57 m/s | |LVOT VTI: 19.00 cm | |MCO: 425.60 ms | |MV A Odette: 0.47 m/s | |MV DecT: 230.39 ms | |MV E Odette: 0.86 m/s | |MV E/A Ratio: 1.81 | |MV PHT: 69.55 ms | |MVA By PHT: 3.16 cm2 | |MV A Dur: 69.20 ms | |IVRT: 100.34 ms | |Septal e': 0.10 m/s | |Septal E/e': 7.83 | |Lateral e': 0.14 m/s | |Lateral E/e': 5.83 | |HR: 49.54 BPM | |PV maxP.01 mmHg | |PV meanP.59 mmHg | |PV Vmax: 0.86 m/s | |PV Vmean: 0.59 m/s | |PV VTI: 16.11 cm | |RAP: 10 mmHg | |RVSP: 23.89 mmHg | |TR maxP.89 mmHg | |TR Vmax: 1.86 m/s | |TV A Odette: 0.19 m/s | |TV Dec Patrick: 1.11 m/s2 | |TV Dec Time: 421.97 ms | |TV E Odette: 0.47 m/s | |TV E/A Ratio: 2.39 | | | |Metal Roofing Mechanic: GD | |Authenticated by: VISH ACOSTA MD | |Report Date/Time: 10-14-2014 18:41:15 | | | |IMPRESSION: | |1. This was a technically difficult study with suboptimal views. | |2. Overall left ventricular systolic function is normal with, an EF between 65 - 70 %. | |3. Left ventricular wall thickness is normal. | |4. The right ventricle is moderately enlarged measuring between 3.8 - 4.1 cm. | + + XR Chest 1 Vw (10/14/2014 8:36 AM PST) + + | Specimen | + + | | + + + + + | Impressions | Performed At | + + + | 1. Tubes and lines in expected positions. 2. Improving | | | bilateral vascular congestion and atelectasis. Electronically | | | signed by Miguel Ángel Blas MD on 10/14/2014 8:54 AM | | + + + + + + | Narrative | Performed At | + + + | [facility] X[facility] CHEST 1 VIEW 10/14/2014 8:36 AM HISTORY: | | | Line placement. TECHNIQUE: One view chest. FINDINGS: | | | Compared with 10/13/14. Tubes and lines in expected positions. No | | | pneumothorax. Heart size normal. There is improving mild vascular | | | congestion and atelectasis. | | + + + + + | Procedure Note | + + | Rosalio, Rad Conversion - 05/05/2019 12:20 AM PDT [facility]ONY MENENDE[facility] CHEST 1 | | VIEW10/14/2014 8:36 AM HISTORY:Line placement. TECHNIQUE:One view chest. | | FINDINGS:Compared with 10/13/14. Tubes and lines in expected positions. No pneumothorax. | | Heart size normal. There is improving mild vascular congestion and atelectasis. | | IMPRESSION: 1. Tubes and lines in expected positions.2. Improving bilateral vascular | | congestion and atelectasis. Electronically signed by Miguel Ángel Blas MD on | | 10/14/2014 8:54 AM | |TECHNIQUE: | |One view chest. | | | |FINDINGS: | |Compared with 10/13/14. Tubes and lines in expected positions. No pneumothorax. Heart size n ormal. There is improving mild vascular congestion and atelectasis. | | | |IMPRESSION: | |1. Tubes and lines in expected positions. | |2. Improving bilateral vascular congestion and atelectasis. | | | | | + + CT Head wo Contrast (10/14/2014 4:16 AM PST) + + | Specimen | + + | | + + + + + | Impressions | Performed At | + + + | 1. Unchanged position of the right scalp drain with interval | | | development of edema in the extracranial soft tissues posterior to the | | | drains. These findings may be related to the patient's volume status | | | although infection is not excluded. Clinical correlation is | | | recommended. 2. Decreased conspicuity of acute subdural hematoma | | | along the right tentorial leaf. 3. Decreased right to left subfalcian | | | herniation from 14 mm to 9 mm. 4. No interval hemorrhage. [facility] | | | Electronically signed by Ida Lawton MD on Oct 14 2014 | | | 5:24AM Referring Provider Line: [phone] ID: [id number] | | + + + + + + | Narrative | Performed At | + + + | EXAM: CT HEAD EXAM DATE: 10/14/2014 04:17 AM. CLINICAL | | | HISTORY: Followup subdural hematoma, status post evacuation. | | | COMPARISON: Portable head CT exam from October 11, 2014 at 2202 hours. | | | TECHNIQUE: Multiaxial CT images were obtained from the foramen | | | magnum to the vertex. IV contrast: None. Reformats: None. | | | FINDINGS: A right decompressive craniectomy is again seen. There | | | are 2 extracalvarial drains again ending near the vertex of the head. | | | Since the prior exam, there has been interval development of mild | | | edema within the extracranial soft tissues posterior to the scalp | | | drains. Mild acute subdural hematoma along the right tentorium | | | demonstrates decrease conspicuity since the prior exam. There is no | | | new intracranial hemorrhage. Right to left subfalcian herniation | | | has decreased from 14 mm to 9 mm. The suprasellar cisterns are | | | slightly better appreciated on the current study. No acute abnormality | | | is demonstrated in the posterior fossa. | | + + + + + | Procedure Note | + + | Marlon Santamaria Conversion - 05/05/2019 12:20 AM PDT EXAM:CT HEAD EXAM DATE: 10/14/2014 04:17 | | AM. CLINICAL HISTORY: Followup subdural hematoma, status post evacuation. COMPARISON: | | Portable head CT exam from October 11, 2014 at 2202 hours. TECHNIQUE: Multiaxial CT | | images were obtained from the foramen magnum to the vertex. IV contrast: None. | | Reformats: None. FINDINGS: A right decompressive craniectomy is again seen. There are 2 | | extracalvarial drains again ending near the vertex of the head. Since the prior exam, | | there has been interval development of mild edema within the extracranial soft tissues | | posterior to the scalp drains. Mild acute subdural hematoma along the right tentorium | | demonstrates decrease conspicuity since the prior exam. There is no new intracranial | | hemorrhage. Right to left subfalcian herniation has decreased from 14 mm to 9 mm. The | | suprasellar cisterns are slightly better appreciated on the current study. No acute | | abnormality is demonstrated in the posterior fossa. IMPRESSION: 1. Unchanged position | | of the right scalp drain with interval development of edema in the extracranial soft | | tissues posterior to the drains. These findings may be related to the patient's volume | | status although infection is not excluded. Clinical correlation is recommended.2. | | Decreased conspicuity of acute subdural hematoma along the right tentorial leaf.3. | | Decreased right to left subfalcian herniation from 14 mm to 9 mm.4. No interval | | hemorrhage. RADIA Electronically signed by Ida Lawton MD on Oct 14 2014 | | 5:24AM Referring Provider Line: [phone] ID: [id number] | | | |IMPRESSION: | | | |1. Unchanged position of the right scalp drain with interval development of edema in the ex tracranial soft tissues posterior to the drains. These findings may be related to the patien t's volume status although infection is not excluded. Clinical | |correlation is recommended. | |2. Decreased conspicuity of acute subdural hematoma along the right tentorial leaf. | |3. Decreased right to left subfalcian herniation from 14 mm to 9 mm. | |4. No interval hemorrhage. | | | |RADIA | | | | Electronically signed by Ida Lawton MD on Oct 14 2014 5:24AM Referring Provider Line: [phone] ID: [id number] | + + External Lab: CBC (10/14/2014 4:15 AM PST) + + + + + + | Component | Value | Ref Range | Performed | Pathologist | | | | | At | Signature | + + + + + + | WBC | 9.8Comment: Testing | 3.8 - 11.0 K/uL | EXTERNAL | | | | performed at [facility], [address] | | LAB | | | | [address], | | | | | | [place] [address] | | | | + + + + + + | Red Blood | 2.96 (L)Comment: Testing | 4.20 - 5.70 | EXTERNAL | | | Cells | performed at [facility], [address] | M/uL | LAB | | | Counted | [address], | | | | | | [place] [address] | | | | + + + + + + | Hemoglobin | 9.7 (L)Comment: Testing | 13.2 - 17.0 | EXTERNAL | | | | performed at [facility], [address] | g/dL | LAB | | | | [address], | | | | | | [place] [address] | | | | + + + + + + | Hematocrit, | 29.4 (L)Comment: Testing | 39.0 - 50.0 % | EXTERNAL | | | POC | performed at [facility], [address] | | LAB | | | | [address], | | | | | | [place] [address] | | | | + + + + + + | MCV | 99.5Comment: Testing | 80.0 - 100.0 fl | EXTERNAL | | | | performed at [facility], [address] | | LAB | | | | [address], | | | | | | [place] [address] | | | | + + + + + + | MCH | 32.7Comment: Testing | 27.0 - 34.0 pg | EXTERNAL | | | | performed at [facility], [address] | | LAB | | | [address], | | | | | | [place] [address] | | | | + + + + + + | MCHC | 32.9Comment: Testing | 32.0 - 35.5 | EXTERNAL | | | | performed at [facility], [address] | g/dL | LAB | | | | [address], | | | | | | [place] [address] | | | | + + + + + + | RDW-CV | 59.1 (H)Comment: Testing | 37 - 53 fl | EXTERNAL | | | | performed at [facility], [address] | | LAB | | | | [address], | | | | | | [place] [address] | | | | + + + + + + | Platelet | 124 (L)Comment: Testing | 150 - 400 K/uL | EXTERNAL | | | Count | performed at [facility], [address] | | LAB | | | Plasma | [address], | | | | | | [place] [address] | | | | + + + + + + | MPV | 8.6Comment: Testing | fl | EXTERNAL | | | | performed at [facility], [address] | | LAB | | | | [address], | | | | | | [place] [address] | | | | + + + + + + | Differentia | AUTOMATEDComment: | | EXTERNAL | | | l Type | Testing performed at | | LAB | | | | [facility], [address] | | | | | | [place] | | | | | | [address] | | | | + + + + + + | % Segmented | 81.9Comment: Testing | % | EXTERNAL | | | | performed at [facility], [address] | | LAB | | | Neutrophils | [address], | | | | | | [place] [address] | | | | + + + + + + | % | 7.9Comment: Testing | % | EXTERNAL | | | Lymphocytes | performed at [facility], [address] | | LAB | | | | [address], | | | | | | [place] [address] | | | | + + + + + + | % Monocytes | 9.3Comment: Testing | % | EXTERNAL | | | | performed at [facility], [address] | | LAB | | | | [address], | | | | | | [place] [address] | | | | + + + + + + | % | 0.7Comment: Testing | % | EXTERNAL | | | Eosinophils | performed at [facility], [address] | | LAB | | | | [address], | | | | | | [place] [address] | | | | + + + + + + | % Basophils | 0.2Comment: Testing | % | EXTERNAL | | | | performed at [facility], [address] | | LAB | | | | [address], | | | | | | [place] [address] | | | | + + + + + + | Absolute | 8.0 (H)Comment: Testing | 1.9 - 7.4 K/uL | EXTERNAL | | | Segmented | performed at [facility], [address] | | LAB | | | Neutrophils | [address], | | | | | | [place] [address] | | | | + + + + + + | Absolute | 0.8 (L)Comment: Testing | 1.0 - 3.9 K/uL | EXTERNAL | | | Lymphocytes | performed at [facility], [address] | | LAB | | | | [address], | | | | | | [place] [address] | | | | + + + + + + | Absolute | 0.9 (H)Comment: Testing | 0 - 0.8 K/uL | EXTERNAL | | | Monocytes | performed at [facility], [address] | | LAB | | | | [address], | | | | | | [place] [address] | | | | + + + + + + | Absolute | 0.1Comment: Testing | 0 - 0.5 K/uL | EXTERNAL | | | Eosinophils | performed at [facility], [address] | | LAB | | | | [address], | | | | | | [place] [address] | | | | + + + + + + | Absolute | 0.0Comment: Testing | 0 - 0.1 K/uL | EXTERNAL | | | Basophils | performed at [facility], [address] | | LAB | | | | [address], | | | | | | [place] [address] | | | | + + + + + + + + | Specimen | + + | Blood specimen | | (specimen) | + + + +---------+ + + | Performing | Address | City/State/Zipcode | Phone Number | | Organization | | | | + +---------+ + + | EXTERNAL LAB | | | | + +---------+ + + Basic Metabolic Panel (10/14/2014 4:15 AM PST) + + + + + [...] | | | | | [place] [address] | | | | + + + + + + | K | 3.8Comment: Testing | 3.5 - 4.9 | EXTERNAL | | | | performed at [facility], [address] | mmol/L | LAB | | | | [address], | | | | | | [place] [address] | | | | + + + + + + | Cl | 109Comment: Testing | 99 - 109 mmol/L | EXTERNAL | | | | performed at [facility], [address] | | LAB | | | | [address], | | | | | | [place] [address] | | | | + + + + + + | CO2 | 22 (L)Comment: Testing | 23 - 32 mmol/L | EXTERNAL | | | | performed at [facility], [address] | | LAB | | | | [address], | | | | | | [place] [address] | | | | + + + + + + | Anion Gap | 9Comment: Testing | 5 - 20 mmol/L | EXTERNAL | | | | performed at [facility], [address] | | LAB | | | | [address], | | | | | | [place] [address] | | | | + + + + + + | Glucose, | 174 (H)Comment: Testing | 65 - 99 mg/dL | EXTERNAL | | | Fasting | performed at [facility], [address] | | LAB | | | | [address], | | | | | | [place] [address] | | | | + + + + + + | BUN | 9Comment: Testing | 8 - 25 mg/dL | EXTERNAL | | | | performed at [facility], [address] | | LAB | | | | [address], | | | | | | [place] [address] | | | | + + + + + + | Creatinine | 0.50 (L)Comment: Testing | 0.70 - 1.30 | EXTERNAL | | | | performed at [facility], [address] | mg/dL | LAB | | | | [address], | | | | | | [place] [address] | | | | + + + + + + | BUN/Creatin | 18Comment: Testing | | EXTERNAL | | | ine Ratio | performed at [facility], [address] | | LAB | | | | [address], | | | | | | [place] [address] | | | | + + + + + + | Calcium | 7.7 (L)Comment: NOTE NEW | 8.5 - 10.5 | EXTERNAL | | | | REFERENCE RANGETesting | mg/dL | LAB | | | | performed at [facility], [address] | | | | | | [address], | | | | | | [place] [address] | | | | + + + [...] | | | | | | at [facility], [address] | | | | | | [address], | | | | | | [place] [address] | | | | + + + + + + + + | Specimen | + + | Blood specimen | | (specimen) | + + + +---------+ + + | Performing | Address | City/State/Zipcode | Phone Number | | Organization | | | | + +---------+ + + | EXTERNAL LAB | | | | + +---------+ + + Procalcitonin (10/13/2014 6:18 PM PST) + + + + + + | Component | Value | Ref Range | Performed | Pathologist | | | | | At | Signature | + + + + + + | Source | PLASMAComment: Testing | | EXTERNAL | | | | performed at [facility];[address] | | LAB | | | | [address];[place] | | | | | | [address] | | | | + + + + + + | PROCALCITON | 0.10Comment: | ng/mL | EXTERNAL | | | IN | INTERPRETIVE | | LAB | | | | INFORMATION: | | | | | | PROCALCITONIN PCT <= | | | | | | 0.5 ng/mL: Low risk | | | | | | for progression to | | | | | | severe systemic | | | | | | bacterial infection | | | | | | (severe sepsis/septic | | | | | | shock). Does not | | | | | | exclude an infection, | | | | | | because localized | | | | | | infections may be | | | | | | associated with such low | | | | | | levels. If PCT is | | | | | | measured very early | | | | | | after bacterial | | | | | | challenge (usually <6 | | | | | | hours), results may | | | | | | still be low and | | | | | | should re-assess PCT | | | | | | 6-24 hours later. PCT | | | | | | >0.5 and <= 2 ng/mL: | | | | | | Moderate risk for | | | | | | progression to severe | | | | | | systemic infection | | | | | | (severe sepsis/septic | | | | | | shock). Other | | | | | | conditions are known | | | | | | to elevate PCT, patient | | | | | | should be closely | | | | | | monitored both | | | | | | clinically and by | | | | | | re-assessing PCT | | | | | | within 6-24 hours. PCT > | | | | | | 2 ng/mL: High | | | | | | likelihood for | | | | | | progression to severe | | | | | | systemic bacterial | | | | | | infection (severe | | | | | | sepsis/septic shock). | | | | | | PCT >= 10 ng/mL: | | | | | | High likelihood of | | | | | | severe sepsis or septic | | | | | | shock.Testing performed | | | | | | at [facility] [place] [address] | | | | | | [facility];[place] [address] | | | | + + + + + + + + | Specimen | + + | | + + + +---------+ + + | Performing | Address | City/State/Zipcode | Phone Number | | Organization | | | | + +---------+ + + | EXTERNAL LAB | | | | + +---------+ + + Potassium (10/13/2014 6:18 PM PST) + + + + + + | Component | Value | Ref Range | Performed | Pathologist | | | | | At | Signature | + + + + + + | K | 3.4 (L)Comment: Testing | 3.5 - 4.9 | EXTERNAL | | | | performed at [facility];888 | mmol/L | LAB | | | | Hortencia Vick;[place] | | | | | | [id number] | | | | + + + + + + + + | Specimen | + + | Blood specimen | | (specimen) | + + + +---------+ + + | Performing | Address | City/State/Zipcode | Phone Number | | Organization | | | | + +---------+ + + | EXTERNAL LAB | | | | + +---------+ + + XR Chest 1 Vw (10/13/2014 3:50 PM PST) + + | Specimen | + + | | + + + + + | Impressions | Performed At | + + + | 1. Mild vascular congestion without overt pulmonary edema. 2. | | | There is no new consolidation. | | + + + + + + | Narrative | Performed At | + + + | JIMENEZRobert FORTUNE 1960 53 years XR CHEST 1 VIEW 10/13/2014 | | | 3:50 PM INDICATION: Respiratory failure COMPARISON: 10/13/2014 | | | TECHNIQUE: Chest 1 view, AP view of the chest FINDINGS: The | | | endotracheal and enteric tubes are stable. The cardiac silhouette is | | | normal in size without widening of the mediastinum. There is no | | | pneumothorax. No pleural fluid is present. The pulmonary markings are | | | normal in caliber. There is mild patchy bibasilar atelectasis. There | | | is mild vascular congestion noted. | | + + + + + | Procedure Note | + + | Rosalio, Rad Conversion - 05/05/2019 12:20 AM PDT TONY [id number] yearsXR | | CHEST 1 VIEW10/13/2014 3:50 PM INDICATION: Respiratory failure COMPARISON: 10/13/2014 | | TECHNIQUE: Chest 1 view, AP view of the chest FINDINGS: The endotracheal and enteric | | tubes are stable. The cardiac silhouette is normal in size without widening of the | | mediastinum. There is no pneumothorax. No pleural fluid is present. The pulmonary | | markings are normal in caliber. There is mild patchy bibasilar atelectasis. There is | | mild vascular congestion noted. IMPRESSION: 1. Mild vascular congestion without overt | | pulmonary edema.2. There is no new consolidation. | | | |TECHNIQUE: Chest 1 view, AP view of the chest | | | |FINDINGS: The endotracheal and enteric tubes are stable. The cardiac silhouette is normal in size without widening of the mediastinum. There is no pneumothorax. No pleural fluid is p resent. The pulmonary markings are normal in caliber. There is mild | |patchy bibasilar atelectasis. There is mild vascular congestion noted. | | | |IMPRESSION: | |1. Mild vascular congestion without overt pulmonary edema. | |2. There is no new consolidation. | | | | | + + XR Chest 1 Vw (10/13/2014 5:51 AM PST) + + | Specimen | + + | | + + + + + | Impressions | Performed At | + + + | 1. Stable position of endotracheal and nasogastric tubes. 2. No | | | new consolidation. | | + + + + + + | Narrative | Performed At | + + + | TONY FORTUNE 1960 53 years XR CHEST 1 VIEW 10/13/2014 | | | 5:51 AM INDICATION: Respiratory failure COMPARISON: 10/11/14 | | | TECHNIQUE: Chest 1 view, AP view of the chest FINDINGS: The | | | endotracheal and nasogastric tubes are stable. The cardiac silhouette | | | is normal in size. There is no pneumothorax. No pleural fluid is | | | present. The pulmonary markings are normal. The lungs are clear with | | | no consolidation. | | + + + + + | Procedure Note | + + | Rosalio, Rad Conversion - 05/05/2019 12:20 AM PDT TONY [id number] yearsXR | | CHEST 1 VIEW10/13/2014 5:51 AM INDICATION: Respiratory failure COMPARISON: 10/11/14 | | TECHNIQUE: Chest 1 view, AP view of the chest FINDINGS: The endotracheal and | | nasogastric tubes are stable. The cardiac silhouette is normal in size. There is no | | pneumothorax. No pleural fluid is present. The pulmonary markings are normal. The lungs | | are clear with no consolidation. IMPRESSION: 1. Stable position of endotracheal and | | nasogastric tubes.2. No new consolidation. | |COMPARISON: 10/11/14 | | | |TECHNIQUE: Chest 1 view, AP view of the chest | | | |FINDINGS: The endotracheal and nasogastric tubes are stable. The cardiac silhouette is nor mal in size. There is no pneumothorax. No pleural fluid is present. The pulmonary markings a re normal. The lungs are clear with no consolidation. | | | |IMPRESSION: | |1. Stable position of endotracheal and nasogastric tubes. | |2. No new consolidation. | | | | | + + External Lab: CBC (10/13/2014 2:47 AM PST) + + + + + + | Component | Value | Ref Range | Performed | Pathologist | | | | | At | Signature | + + + + + + | WBC | 7.1Comment: Testing | 3.8 - 11.0 K/uL | EXTERNAL | | | | performed at [facility] [address], [address] | | LAB | | | | [address], | | | | | | [place] [address] | | | | + + + + + + | Red Blood | 2.98 (L)Comment: Testing | 4.20 - 5.70 | EXTERNAL | | | Cells | performed at [facility], [address] | M/uL | LAB | | | Counted | [address], | | | | | | [place] [address] | | | | + + + + + + | Hemoglobin | 9.7 (L)Comment: Testing | 13.2 - 17.0 | EXTERNAL | | | | performed at [facility], [address] | g/dL | LAB | | | | [address], | | | | | | [place] [address] | | | | + + + + + + | Hematocrit, | 29.8 (L)Comment: Testing | 39.0 - 50.0 % | EXTERNAL | | | POC | performed at [facility], [address] | | LAB | | | | [address], | | | | | | [place] [address] | | | | + + + + + + | MCV | 100.1 (H)Comment: | 80.0 - 100.0 fl | EXTERNAL | | | | Testing performed at | | LAB | | | | [facility], [address] | | | | | | [place] | | | | | | [address] | | | | + + + + + + | MCH | 32.5Comment: Testing | 27.0 - 34.0 pg | EXTERNAL | | | | performed at [facility], [address] | | LAB | | | | [address], | | | | | | [place] [address] | | | | + + + + + + | MCHC | 32.5Comment: Testing | 32.0 - 35.5 | EXTERNAL | | | | performed at [facility], [address] | g/dL | LAB | | | | [address], | | | | | | [place] [address] | | | | + + + + + + | RDW-CV | 60.4 (H)Comment: Testing | 37 - 53 fl | EXTERNAL | | | | performed at [facility], [address] | | LAB | | | | [address], | | | | | | [place] [address] | | | | + + + + + + | Platelet | 107 (L)Comment: Testing | 150 - 400 K/uL | EXTERNAL | | | Count | performed at [facility], [address] | | LAB | | | Plasma | [address], | | | | | | [place] [address] | | | | + + + + + + | MPV | 8.6Comment: Testing | fl | EXTERNAL | | | | performed at [facility], [address] | | LAB | | | | [address], | | | | | | [place] [address] | | | | + + + + + + | Differentia | AUTOMATEDComment: | | EXTERNAL | | | l Type | Testing performed at | | LAB | | | | [facility], [address] | | | | | | [place] | | | | | | [address] | | | | + + + + + + | % Segmented | 78.6Comment: Testing | % | EXTERNAL | | | | performed at [facility], [address] | | LAB | | | Neutrophils | [address], | | | | | | [place] [address] | | | | + + + + + + | % | 9.1Comment: Testing | % | EXTERNAL | | | Lymphocytes | performed at [facility], [address] | | LAB | | | | [address], | | | | | | [place] [address] | | | | + + + + + + | % Monocytes | 11.3Comment: Testing | % | EXTERNAL | | | | performed at [facility], [address] | | LAB | | | | [address], | | | | | | [place] [address] | | | | + + + + + + | % | 0.5Comment: Testing | % | EXTERNAL | | | Eosinophils | performed at [facility], [address] | | LAB | | | | [address], | | | | | | [place] [address] | | | | + + + + + + | % Basophils | 0.5Comment: Testing | % | EXTERNAL | | | | performed at [facility], [address] | | LAB | | | | [address], | | | | | | [place] [address] | | | | + + + + + + | Absolute | 5.6Comment: Testing | 1.9 - 7.4 K/uL | EXTERNAL | | | Segmented | performed at [facility], [address] | | LAB | | | Neutrophils | [address], | | | | | | [place] [address] | | | | + + + + + + | Absolute | 0.6 (L)Comment: Testing | 1.0 - 3.9 K/uL | EXTERNAL | | | Lymphocytes | performed at [facility], [address] | | LAB | | | | [address], | | | | | | [place] [address] | | | | + + + + + + | Absolute | 0.8Comment: Testing | 0 - 0.8 K/uL | EXTERNAL | | | Monocytes | performed at [facility], [address] | | LAB | | | | [address], | | | | | | [place] [address] | | | | + + + + + + | Absolute | 0.0Comment: Testing | 0 - 0.5 K/uL | EXTERNAL | | | Eosinophils | performed at [facility], [address] | | LAB | | | | [address], | | | | | | [place] [address] | | | | + + + + + + | Absolute | 0.0Comment: Testing | 0 - 0.1 K/uL | EXTERNAL | | | Basophils | performed at [facility], [address] | | LAB | | | | [address], | | | | | | [place] [address] | | | | + + + + + + + + | Specimen | + + | Blood specimen | | (specimen) | + + + +---------+ + + | Performing | Address | City/State/Zipcode | Phone Number | | Organization | | | | + +---------+ + + | EXTERNAL LAB | | | | + +---------+ + + Basic Metabolic Panel (10/13/2014 2:47 AM PST) + + + + + [...] | | | | | [place] [address] | | | | + + + + + + | K | 3.4 (L)Comment: Testing | 3.5 - 4.9 | EXTERNAL | | | | performed at [facility], [address] | mmol/L | LAB | | | | [address], | | | | | | [place] [address] | | | | + + + + + + | Cl | 112 (H)Comment: Testing | 99 - 109 mmol/L | EXTERNAL | | | | performed at [facility], [address] | | LAB | | | | [address], | | | | | | [place] [address] | | | | + + + + + + | CO2 | 19 (L)Comment: Testing | 23 - 32 mmol/L | EXTERNAL | | | | performed at [facility], [address] | | LAB | | | | [address], | | | | | | [place] [address] | | | | + + + + + + | Anion Gap | 10Comment: Testing | 5 - 20 mmol/L | EXTERNAL | | | | performed at [facility], [address] | | LAB | | | | [address], | | | | | | [place] [address] | | | | + + + + + + | Glucose, | 133 (H)Comment: Testing | 65 - 99 mg/dL | EXTERNAL | | | Fasting | performed at [facility], [address] | | LAB | | | | [address], | | | | | | [place] [address] | | | | + + + + + + | BUN | 5 (L)Comment: Testing | 8 - 25 mg/dL | EXTERNAL | | | | performed at [facility], [address] | | LAB | | | | [address], | | | | | | [place] [address] | | | | + + + + + + | Creatinine | 0.47 (L)Comment: Testing | 0.70 - 1.30 | EXTERNAL | | | | performed at [facility], [address] | mg/dL | LAB | | | | [address], | | | | | | [place] [address] | | | | + + + + + + | BUN/Creatin | 11Comment: Testing | | EXTERNAL | | | ine Ratio | performed at [facility], [address] | | LAB | | | | [address], | | | | | | [place] [address] | | | | + + + + + + | Calcium | 7.8 (L)Comment: NOTE NEW | 8.5 - 10.5 | EXTERNAL | | | | REFERENCE RANGETesting | mg/dL | LAB | | | | performed at [facility], [address] | | | | | | [facility], | | | | | | [place] [address] | | | | + + + [...] | | | | | | at [facility], [address] | | | | | | [facility], | | | | | | [place] [address] | | | | + + + + + + + + | Specimen | + + | Blood specimen | | (specimen) | + + + +---------+ + + | Performing | Address | City/State/Zipcode | Phone Number | | Organization | | | | + +---------+ + + | EXTERNAL LAB | | | | + +---------+ + + Potassium (10/12/2014 5:48 PM PST) + + + + + + | Component | Value | Ref Range | Performed | Pathologist | | | | | At | Signature | + + + + + + | K | 3.5Comment: SLT | 3.5 - 4.9 | EXTERNAL | | | | HEMOLYSISTesting | mmol/L | LAB | | | | performed at [facility] | | | | | | [address];[place], [place] | | | | | | [address] | | | | + + + + + + + + | Specimen | + + | Blood specimen | | (specimen) | + + + +---------+ + + | Performing | Address | City/State/Zipcode | Phone Number | | Organization | | | | + +---------+ + + | EXTERNAL LAB | | | | + +---------+ + + Magnesium (10/12/2014 5:48 PM PST) + + + + + + | Component | Value | Ref Range | Performed | Pathologist | | | | | At | Signature | + + + + + + | Magnesium | 2.2Comment: SLT | 1.7 - 2.4 mg/dL | EXTERNAL | | | | HEMOLYSISTesting | | LAB | | | | performed at [facility];[address] | | | | | | [address];[place], [place] | | | | | | [address] | | | | + + + + + + + + | Specimen | + + | Blood specimen | | (specimen) | + + + +---------+ + + | Performing | Address | City/State/Zipcode | Phone Number | | Organization | | | | + +---------+ + + | EXTERNAL LAB | | | | + +---------+ + + Selwynime INR (10/12/2014 9:39 AM PST) + + + + + + | Component | Value | Ref Range | Performed | Pathologist | | | | | At | Signature | + + + + + + | INR | 1.1Comment: REFERENCE | | EXTERNAL | | | | RANGE:0.9 - 1.2 | | LAB | | | | NON-ANTICOAGULATED2.0 | | | | | | - 3.0 ALL OTHER | | | | | | THERAPEUTIC | | | | | | INDICATIONS2.5 - 3.5 | | | | | | MECHANICAL HEART VALVES, | | | | | | RECURRENT OR SYSTEMIC | | | | | | EMBOLISMTesting | | | | | | performed at [facility] | | | | | | [facility];[place], [place] | | | | | | [address] | | | | + + + [...] + +---------+ + + External Lab: CBC (10/12/2014 3:05 AM PST) + + + + + + | Component | Value | Ref Range | Performed | Pathologist | | | | | At | Signature | + + + + + + | WBC | 9.1Comment: Testing | 3.8 - 11.0 K/uL | EXTERNAL | | | | performed at [facility], [address] | | LAB | | | | [address], | | | | | | [place] [address] | | | | + + + + + + | Red Blood | 3.39 (L)Comment: Testing | 4.20 - 5.70 | EXTERNAL | | | Cells | performed at [facility], [address] | M/uL | LAB | | | Counted | [address], | | | | | | [place] [address] | | | | + + + + + + | Hemoglobin | 11.1 (L)Comment: Testing | 13.2 - 17.0 | EXTERNAL | | | | performed at [facility], [address] | g/dL | LAB | | | | [address], | | | | | | [place] [address] | | | | + + + + + + | Hematocrit, | 33.5 (L)Comment: Testing | 39.0 - 50.0 % | EXTERNAL | | | POC | performed at [facility], [address] | | LAB | | | | [address], | | | | | | [place] [address] | | | | + + + + + + | MCV | 98.6Comment: Testing | 80.0 - 100.0 fl | EXTERNAL | | | | performed at [facility], [address] | | LAB | | | | [address], | | | | | | [place] [address] | | | | + + + + + + | MCH | 32.7Comment: Testing | 27.0 - 34.0 pg | EXTERNAL | | | | performed at [facility], [address] | | LAB | | | | [address], | | | | | | [place] [address] | | | | + + + + + + | MCHC | 33.1Comment: Testing | 32.0 - 35.5 | EXTERNAL | | | | performed at [facility], [address] | g/dL | LAB | | | | [address], | | | | | | [place] [address] | | | | + + + + + + | RDW-CV | 59.5 (H)Comment: Testing | 37 - 53 fl | EXTERNAL | | | | performed at [facility], [address] | | LAB | | | | [address], | | | | | | [place] [address] | | | | + + + + + + | Platelet | 138 (L)Comment: Testing | 150 - 400 K/uL | EXTERNAL | | | Count | performed at [facility], [address] | | LAB | | | Plasma | [address], | | | | | | [place] [address] | | | | + + + + + + | MPV | 8.4Comment: Testing | fl | EXTERNAL | | | | performed at [facility], [address] | | LAB | | | | [address], | | | | | | [place] [address] | | | | + + + + + + | Differentia | AUTOMATEDComment: | | EXTERNAL | | | l Type | Testing performed at | | LAB | | | | [facility], [address], [place], [place] | | | | | | [address] | | | | + + + + + + | % Segmented | 79.3Comment: Testing | % | EXTERNAL | | | | performed at [facility], [address] | | LAB | | | Neutrophils | [address], | | | | | | [place] [address] | | | | + + + + + + | % | 7.8Comment: Testing | % | EXTERNAL | | | Lymphocytes | performed at [facility], [address] | | LAB | | | [address], | | | | | | [place] [address] | | | | + + + + + + | % Monocytes | 12.1Comment: Testing | % | EXTERNAL | | | | performed at [facility], [address] | | LAB | | | | [address], | | | | | | [place] [address] | | | | + + + + + + | % | 0.3Comment: Testing | % | EXTERNAL | | | Eosinophils | performed at [facility], [address] | | LAB | | | | [address], | | | | | | [place] [address] | | | | + + + + + + | % Basophils | 0.5Comment: Testing | % | EXTERNAL | | | | performed at [facility], [address] | | LAB | | | [address], | | | | | | [place] [address] | | | | + + + + + + | Absolute | 7.2Comment: Testing | 1.9 - 7.4 K/uL | EXTERNAL | | | Segmented | performed at [facility], [address] | | LAB | | | Neutrophils | [address], | | | | | | [place] [address] | | | | + + + + + + | Absolute | 0.7 (L)Comment: Testing | 1.0 - 3.9 K/uL | EXTERNAL | | | Lymphocytes | performed at [facility], [address] | | LAB | | | | [address], | | | | | | [place] [address] | | | | + + + + + + | Absolute | 1.1 (H)Comment: Testing | 0 - 0.8 K/uL | EXTERNAL | | | Monocytes | performed at [facility], [address] | | LAB | | | [address], | | | | | | [place] [address] | | | | + + + + + + | Absolute | 0.0Comment: Testing | 0 - 0.5 K/uL | EXTERNAL | | | Eosinophils | performed at [facility], [address] | | LAB | | | | [address], | | | | | | [place] [address] | | | | + + + + + + | Absolute | 0.0Comment: Testing | 0 - 0.1 K/uL | EXTERNAL | | | Basophils | performed at [facility], [address] | | LAB | | | | [address], | | | | | | [place] [address] | | | | + + + + + + + + | Specimen | + + | Blood specimen | | (specimen) | + + + +---------+ + + | Performing | Address | City/State/Zipcode | Phone Number | | Organization | | | | + +---------+ + + | EXTERNAL LAB | | | | + +---------+ + + Magnesium (10/12/2014 3:05 AM PST) + + + + + + | Component | Value | Ref Range | Performed | Pathologist | | | | | At | Signature | + + + + + + | Magnesium | 2.2Comment: Testing | 1.7 - 2.4 mg/dL | EXTERNAL | | | | performed at [facility], [address] | | LAB | | | | [address], | | | | | | [place] [address] | | | | + + + + + + + + | Specimen | + + | Blood specimen | | (specimen) | + + + +---------+ + + | Performing | Address | City/State/Zipcode | Phone Number | | Organization | | | | + +---------+ + + | EXTERNAL LAB | | | | + +---------+ + + Basic Metabolic Panel (10/12/2014 3:05 AM PST) + + + + + + | Component | Value | Ref Range | Performed | Pathologist | | | | | At | Signature | + + + + + + | Na | 134 (L)Comment: Testing | 135 - 143 | EXTERNAL | | | | performed at [facility], [address] | mmol/L | LAB | | | | [address], | | | | | | [place] [address] | | | | + + + + + + | K | 2.8 (L)Comment: Testing | 3.5 - 4.9 | EXTERNAL | | | | performed at [facility], [address] | mmol/L | LAB | | | | [address], | | | | | | [place] [address] | | | | + + + + + + | Cl | 105Comment: Testing | 99 - 109 mmol/L | EXTERNAL | | | | performed at [facility], [address] | | LAB | | | | [address], | | | | | | [place] [address] | | | | + + + + + + | CO2 | 23Comment: Testing | 23 - 32 mmol/L | EXTERNAL | | | | performed at [facility], [address] | | LAB | | | | [address], | | | | | | [place] [address] | | | | + + + + + + | Anion Gap | 9Comment: Testing | 5 - 20 mmol/L | EXTERNAL | | | | performed at [facility], [address] | | LAB | | | | [address], | | | | | | [place] [address] | | | | + + + + + + | Glucose, | 163 (H)Comment: Testing | 65 - 99 mg/dL | EXTERNAL | | | Fasting | performed at [facility], [address] | | LAB | | | [address], | | | | | | [place] [address] | | | | + + + + + + | BUN | 7 (L)Comment: Testing | 8 - 25 mg/dL | EXTERNAL | | | | performed at [facility], [address] | | LAB | | | [address], | | | | | | [place] [address] | | | | + + + + + + | Creatinine | 0.57 (L)Comment: Testing | 0.70 - 1.30 | EXTERNAL | | | | performed at [facility], [address] | mg/dL | LAB | | | | [address], | | | | | | [place] [address] | | | | + + + + + + | BUN/Creatin | 12Comment: Testing | | EXTERNAL | | | ine Ratio | performed at [facility], [address] | | LAB | | | | [address], | | | | | | [place] [address] | | | | + + + + + + | Calcium | 7.8 (L)Comment: NOTE NEW | 8.5 - 10.5 | EXTERNAL | | | | REFERENCE RANGETesting | mg/dL | LAB | | | | performed at [facility], [address] | | | | | | [address], | | | | | | [place] [address] | | | | + + + [...] | | | | | | at [facility], [address] | | | | | | [address], | | | | | | [place] [address] | | | | + + + [...] + +---------+ + + External Lab: CBC (10/11/2014 10:45 PM PST) + + + + + + | Component | Value | Ref Range | Performed | Pathologist | | | | | At | Signature | + + + + + + | WBC | 9.7Comment: Testing | 3.8 - 11.0 K/uL | EXTERNAL | | | | performed at [facility];[address] | | LAB | | | | [address];[place] | | | | | | [address] | | | | + + + + + + | Red Blood | 3.63 (L)Comment: Testing | 4.20 - 5.70 | EXTERNAL | | | Cells | performed at [facility];[address] | M/uL | LAB | | | Counted | [address];[place] | | | | | | [address] | | | | + + + + + + | Hemoglobin | 10.9 (L)Comment: Testing | 13.2 - 17.0 | EXTERNAL | | | | performed at [facility];[address] | g/dL | LAB | | | | [address];[place] | | | | | | [address] | | | | + + + + + + | Hematocrit, | 34.9 (L)Comment: Testing | 39.0 - 50.0 % | EXTERNAL | | | POC | performed at [facility];[address] | | LAB | | | | [address];[place] | | | | | | [address] | | | | + + + + + + | MCV | 96.2Comment: Testing | 80.0 - 100.0 fl | EXTERNAL | | | | performed at [facility];[address] | | LAB | | | | [address];[place] | | | | | | [address] | | | | + + + + + + | MCH | 30.0Comment: Testing | 27.0 - 34.0 pg | EXTERNAL | | | | performed at [facility];[address] | | LAB | | | | [address];[place] | | | | | | [address] | | | | + + + + + + | MCHC | 31.2 (L)Comment: Testing | 32.0 - 35.5 | EXTERNAL | | | | performed at [facility];[address] | g/dL | LAB | | | | [address];[place] | | | | | | [address] | | | | + + + + + + | RDW-CV | 58.6 (H)Comment: Testing | 37 - 53 fl | EXTERNAL | | | | performed at [facility];[address] | | LAB | | | | [address];[place] | | | | | | [address] | | | | + + + + + + | Platelet | 164Comment: Testing | 150 - 400 K/uL | EXTERNAL | | | Count | performed at [facility] [place] | | LAB | | | Plasma | [address];[place] | | | | | | [address] | | | | + + + + + + | MPV | 7.8Comment: Testing | fl | EXTERNAL | | | | performed at [facility];[address] | | LAB | | | | [address];[place] | | | | | | [address] | | | | + + + + + + | Differentia | AUTOMATEDComment: | | EXTERNAL | | | l Type | Testing performed at | | LAB | | | | [facility];[place] [id number] | | | | + + + + + + | % Segmented | 72.3Comment: Testing | % | EXTERNAL | | | | performed at [facility];[address] | | LAB | | | Neutrophils | [address];[place] | | | | | | [address] | | | | + + + + + + | % | 13.2Comment: Testing | % | EXTERNAL | | | Lymphocytes | performed at [facility];[address] | | LAB | | | | [address];[place] | | | | | | [address] | | | | + + + + + + | % Monocytes | 13.4Comment: Testing | % | EXTERNAL | | | | performed at [facility];[address] | | LAB | | | | [address];[place] | | | | | | [address] | | | | + + + + + + | % | 0.3Comment: Testing | % | EXTERNAL | | | Eosinophils | performed at [facility];[address] | | LAB | | | | [address];[place] | | | | | | [address] | | | | + + + + + + | % Basophils | 0.8Comment: Testing | % | EXTERNAL | | | | performed at [facility];[address] | | LAB | | | | [address];[place] | | | | | | [address] | | | | + + + + + + | Absolute | 7.0Comment: Testing | 1.9 - 7.4 K/uL | EXTERNAL | | | Segmented | performed at [facility];[address] | | LAB | | | Neutrophils | [address];[place] | | | | | | [address] | | | | + + + + + + | Absolute | 1.3Comment: Testing | 1.0 - 3.9 K/uL | EXTERNAL | | | Lymphocytes | performed at [facility];[address] | | LAB | | | | [address];[place] | | | | | | [address] | | | | + + + + + + | Absolute | 1.3 (H)Comment: Testing | 0 - 0.8 K/uL | EXTERNAL | | | Monocytes | performed at [facility];[address] | | LAB | | | | [address];[place] | | | | | | [address] | | | | + + + + + + | Absolute | 0.0Comment: Testing | 0 - 0.5 K/uL | EXTERNAL | | | Eosinophils | performed at [facility];[address] | | LAB | | | | [address];[place] | | | | | | [address] | | | | + + + + + + | Absolute | 0.1Comment: Testing | 0 - 0.1 K/uL | EXTERNAL | | | Basophils | performed at [facility];[address] | | LAB | | | | [address];[place], [place] | | | | | | [address] | | | | + + + + + + + + | Specimen | + + | Blood specimen | | (specimen) | + + + +---------+ + + | Performing | Address | City/State/Zipcode | Phone Number | | Organization | | | | + +---------+ + + | EXTERNAL LAB | | | | + +---------+ + + MRSA NAAT (10/11/2014 10:39 PM PST) + + | Specimen | + + | | + + + + + | Narrative | Performed At | + + + | SOURCE NARES(NOSE) | EXTERNAL LAB | | Testing performed at [address];[place] [address] MRSA PCR | | | NEGATIVE Testing performed at | | | [address];[place] [address] | | + + + + +---------+ + + | Performing | Address | City/State/Zipcode | Phone Number | | Organization | | | | + +---------+ + + | EXTERNAL LAB | | | | + +---------+ + + Gram Stain, reflex Sputum Culture (10/11/2014 10:38 PM PST) + + | Specimen | + + | | + + + + + | Narrative | Performed At | + + + | Specimen Description SPUTUM GRAM STAIN | EXTERNAL LAB | | GREATER THAN 10 WBCS/LPF | | | LESS THAN 10 SEC/LPF | | | 1+ | | | GRAM POSITIVE COCCI | | | 2+ | | | GRAM NEGATIVE RODS | | | 2+ | | | GRAM NEGATIVE COCCI | | | CULTURE 3+ | | | NORMAL UPPER | | | RESPIRATORY REMY | | | Testing performed at [facility] [address], [address] [place] | | | [address] | | + + + + +---------+ + + | Performing | Address | City/State/Zipcode | Phone Number | | Organization | | | | + +---------+ + + | EXTERNAL LAB | | | | + +---------+ + + Phosphorus (10/11/2014 10:37 PM PST) + + + + + + | Component | Value | Ref Range | Performed | Pathologist | | | | | At | Signature | + + + + + + | PHOSPHORUS | 3.3Comment: Testing | 2.3 - 4.8 mg/dL | EXTERNAL | | | | performed at [facility];[address] | | LAB | | | | [address];[place] | | | | | | [address] | | | | + + + + + + + + | Specimen | + + | | + + + +---------+ + + | Performing | Address | City/State/Zipcode | Phone Number | | Organization | | | | + +---------+ + + | EXTERNAL LAB | | | | + +---------+ + + Magnesium (10/11/2014 10:37 PM PST) + + + + + + | Component | Value | Ref Range | Performed | Pathologist | | | | | At | Signature | + + + + + + | Magnesium | 1.9Comment: Testing | 1.7 - 2.4 mg/dL | EXTERNAL | | | | performed at [facility];[address] | | LAB | | | | [address];[place], [place] | | | | | | [address] | | | | + + + + + + + + | Specimen | + + | | + + + +---------+ + + | Performing | Address | City/State/Zipcode | Phone Number | | Organization | | | | + +---------+ + + | EXTERNAL LAB | | | | + +---------+ + + Hepatic Function Panel (10/11/2014 10:37 PM PST) + + + + + + | Component | Value | Ref Range | Performed | Pathologist | | | | | At | Signature | + + + + + + | Protein, | 6.3Comment: Testing | 6.3 - 8.2 g/dL | EXTERNAL | | | Total | performed at [facility];[address] | | LAB | | | | [address];[place] | | | | | | [address] | | | | + + + + + + | Albumin | 2.8 (L)Comment: Testing | 3.6 - 5.0 g/dL | EXTERNAL | | | | performed at [facility];[address] | | LAB | | | | [address];[place] | | | | | | [address] | | | | + + + + + + | Bilirubin | 1.6 (H)Comment: Testing | 0.1 - 1.5 mg/dL | EXTERNAL | | | Total | performed at [facility];[address] | | LAB | | | | [address];[place] | | | | | | [address] | | | | + + + + + + | Bilirubin | 0.6 (H)Comment: Testing | 0.0 - 0.3 mg/dL | EXTERNAL | | | Direct | performed at [facility];[address] | | LAB | | | | [address];[place] | | | | | | [address] | | | | + + + + + + | ALP, | 138 (H)Comment: Testing | 35 - 115 U/L | EXTERNAL | | | External | performed at [facility];[address] | | LAB | | | | [address];[place] | | | | | | [address] | | | | + + + + + + | AST | 61 (H)Comment: Testing | 10 - 45 U/L | EXTERNAL | | | | performed at [facility];[address] | | LAB | | | | [address];[place] | | | | | | [address] | | | | + + + + + + | ALT | 54Comment: Testing | 10 - 65 U/L | EXTERNAL | | | | performed at [facility];[address] | | LAB | | | | [address];[place], [place] | | | | | | [address] | | | | + + + + + + + + | Specimen | + + | Blood specimen | | (specimen) | + + + +---------+ + + | Performing | Address | City/State/Zipcode | Phone Number | | Organization | | | | + +---------+ + + | EXTERNAL LAB | | | | + +---------+ + + XR Chest 1 Vw (10/11/2014 10:23 PM PST) + + | Specimen | + + | | + + + + + | Impressions | Performed At | + + + | 1. Endotracheal tube and enteric tube in radiographically | | | appropriate positions 2. Some coarsening of midlung field | | | markings, more so on the left. A subtle perihilar infiltrate would be | | | difficult to exclude, but also consider atelectasis Electronically | | | signed by Byron Hunt MD on 10/11/2014 10:26 PM | | + + + + + + | Narrative | Performed At | + + + | HISTORY: 53-year-old male, respiratory failure, now intubated | | | TECHNIQUE: 1. 1 view radiographic examination of the chest. | | | September. 21:46 Prior study for review : 13 September 2009 | | | FINDINGS: Endotracheal tube superimposed over the midline airway, | | | 4.8 cm above the lacey Enteric tube tract esophagus, terminates | | | below the hemidiaphragm. Some coarse parenchymal character to the | | | midlung melara-but no florid failure or dense consolidation. Findings | | | are somewhat greater on the left. Some degenerative changes of the | | | shoulders and spine, high-grade | | + + + + + | Procedure Note | + + | Rosalio, Rad Conversion - 05/05/2019 12:20 AM PDT HISTORY: 53-year-old male, respiratory | | failure, now intubated TECHNIQUE: 1. 1 view radiographic examination of the chest. | | September. 21:46Prior study for review : 13 September 2009 FINDINGS: Endotracheal tube | | superimposed over the midline airway, 4.8 cm above the lacey Enteric tube tract | | esophagus, terminates below the hemidiaphragm. Some coarse parenchymal character to the | | midlung melara-but no florid failure or dense consolidation. Findings are somewhat | | greater on the left. Some degenerative changes of the shoulders and spine, high-grade | | IMPRESSION: 1. Endotracheal tube and enteric tube in radiographically appropriate | | positions 2. Some coarsening of midlung field markings, more so on the left. A subtle | | perihilar infiltrate would be difficult to exclude, but also consider atelectasis | | | |Enteric tube tract esophagus, terminates below the hemidiaphragm. | | | |Some coarse parenchymal character to the midlung melara-but no florid failure or dense cons olidation. Findings are somewhat greater on the left. | | | |Some degenerative changes of the shoulders and spine, high-grade | | | |IMPRESSION: | | | |1. Endotracheal tube and enteric tube in radiographically appropriate positions | | | |2. Some coarsening of midlung field markings, more so on the left. A subtle perihilar infil trate would be difficult to exclude, but also consider atelectasis | | | | | + + CT Head wo Contrast (10/11/2014 10:23 PM PST) + + | Specimen | + + | | + + + + + | Impressions | Performed At | + + + | 1. Post evacuation of the subdural hematoma and wide right | | | frontotemporal decompression, with expected surgical changes, | | | pneumocephalus and drain. 2. Significant mass effect and edema | | | remains, but there are some anatomic improvements as above. 3. The | | | significant majority of the subdural collection has been evacuated, | | | with some residual about the tentorium | | + + + + + + | Narrative | Performed At | + + + | HISTORY: 53 year-old male, post craniotomy. TECHNIQUE: Axial | | | noncontrast head CT. Prior examination: 11 October 2014. | | | FINDINGS: [employer] is unremarkable. The patient is post interval | | | broad right frontotemporal craniectomy, with expected surgical | | | findings such as pneumocephalus, drain and edema with a crescent of | | | diamond at the margin of the interventional bed. There is | | | significant edema and mass effect, midline shift. But less when | | | compared to the preoperative examination. Midline shift now on image | | | 24 measures about 1.5 cm. Closer 2.3 cm on the prior examination. | | | The subdural blood is improved, but only some residua about the | | | tentorium, the subdural collection previously seen has been evacuated. | | | No new bleeding | | + + + + + | Procedure Note | + + | Marlon Santamaria Conversion - 05/05/2019 12:20 AM PDT HISTORY: 53 year-old male, post | | craniotomy. TECHNIQUE: Axial noncontrast head CT. Prior examination: 11 October 2014. | | FINDINGS: [employer]ist is unremarkable. The patient is post interval broad right frontotemporal | | craniectomy, with expected surgical findings such as pneumocephalus, drain and edema | | with a crescent of diamond at the margin of the interventional bed. There is significant | | edema and mass effect, midline shift. But less when compared to the preoperative | | examination. Midline shift now on image 24 measures about 1.5 cm. Closer 2.3 cm on the | | prior examination. The subdural blood is improved, but only some residua about the | | tentorium, the subdural collection previously seen has been evacuated. No new bleeding | | IMPRESSION: 1. Post evacuation of the subdural hematoma and wide right frontotemporal | | decompression, with expected surgical changes, pneumocephalus and drain. 2. Significant | | mass effect and edema remains, but there are some anatomic improvements as above. 3. The | | significant majority of the subdural collection has been evacuated, with some residual | | about the tentorium | |The subdural blood is improved, but only some residua about the tentorium, the subdural col lection previously seen has been evacuated. No new bleeding | | | |IMPRESSION: | | | |1. Post evacuation of the subdural hematoma and wide right frontotemporal decompression, wi th expected surgical changes, pneumocephalus and drain. | | | |2. Significant mass effect and edema remains, but there are some anatomic improvements as a juan a. | | | |3. The significant majority of the subdural collection has been evacuated, with some residu al about the tentorium | | | | | + + Basic Metabolic Panel (10/11/2014 7:49 PM PST) + + + + + + | Component | Value | Ref Range | Performed | Pathologist | | | | | At | Signature | + + + + + + | Na | 138Comment: Testing | 135 - 143 | EXTERNAL | | | | performed at [facility];[address] | mmol/L | LAB | | | | [address];[place] | | | | | | [address] | | | | + + + + + + | K | 2.7 (LL)Comment: RESULT | 3.5 - 4.9 | EXTERNAL | | | | READ BACK BY:TAYA Price IN [place] | mmol/L | LAB | | | | AT 2012 BY FANNY ON | | | | | | [id number] performed | | | | | | at [facility];[address];[place] [address] | | | | + + + + + + | Cl | 102Comment: Testing | 99 - 109 mmol/L | EXTERNAL | | | | performed at [facility];[address] | | LAB | | | | [address];[place] | | | | | | [address] | | | | + + + + + + | CO2 | 25Comment: Testing | 23 - 32 mmol/L | EXTERNAL | | | | performed at [facility];[address] | | LAB | | | | [address];[place] | | | | | | [address] | | | | + + + + + + | Anion Gap | 14Comment: Testing | 5 - 20 mmol/L | EXTERNAL | | | | performed at [facility];[address] | | LAB | | | | [address];[place] | | | | | | [address] | | | | + + + + + + | Glucose, | 143 (H)Comment: Testing | 65 - 99 mg/dL | EXTERNAL | | | Fasting | performed at [facility];[address] | | LAB | | | | [address];[place] | | | | | | [address] | | | | + + + + + + | BUN | 7 (L)Comment: Testing | 8 - 25 mg/dL | EXTERNAL | | | | performed at [facility];[address] | | LAB | | | | [address];[place] | | | | | | [address] | | | | + + + + + + | Creatinine | 0.68 (L)Comment: Testing | 0.70 - 1.30 | EXTERNAL | | | | performed at [facility];[address] | mg/dL | LAB | | | | [address];[place] | | | | | | [address] | | | | + + + + + + | BUN/Creatin | 10Comment: Testing | | EXTERNAL | | | ine Ratio | performed at [facility];[address] | | LAB | | | | [facility] [place] | | | | | | [address] | | | | + + + + + + | Calcium | 7.3 (L)Comment: NOTE NEW | 8.5 - 10.5 | EXTERNAL | | | | REFERENCE RANGETesting | mg/dL | LAB | | | | performed at [facility];[address] | | | | | | [facility] [place] | | | | | | [address] | | | | + + + [...] | | | | | | at [facility];[address] [facility] | | | | | | [address];[place] [address] | | | | + + + + + + + + | Specimen | + + | Blood specimen | | (specimen) | + + + +---------+ + + | Performing | Address | City/State/Zipcode | Phone Number | | Organization | | | | + +---------+ + + | EXTERNAL LAB | | | | + +---------+ + + POC BRUNO CG8, Arterial (10/11/2014 7:48 PM PST) + + + + + + | Component | Value | Ref Range | Performed | Pathologist | | | | | At | Signature | + + + + + + | PH ART | 7.535 (H)Comment: | 7.350 - 7.450 | EXTERNAL | | | | Testing performed at | | LAB | | | | [facility];[address];[place] [address] | | | | + + + + + + | PCO2 ART | 33 (L)Comment: Testing | 35 - 45 mmHg | EXTERNAL | | | | performed at [facility];[address] | | LAB | | | | [address];[place] | | | | | | [address] | | | | + + + + + + | PO2 ART | 225 (H)Comment: Testing | 80 - 105 mmHg | EXTERNAL | | | | performed at [facility];[address] | | LAB | | | | [address];[place] | | | | | | [address] | | | | + + + + + + | HCO3 ART | 28 (H)Comment: Testing | 22 - 26 mmol/L | EXTERNAL | | | | performed at [facility];[address] | | LAB | | | | [address];[place] | | | | | | [address] | | | | + + + + + + | POC | 29 (H)Comment: Testing | 23 - 27 mEq/L | EXTERNAL | | | APPEARANCE | performed at [facility];[address] | | LAB | | | UA | [address];[place] | | | | | | [address] | | | | + + + + + + | Base | 6 (H)Comment: Testing | 0 - 3 mEq/L | EXTERNAL | | | Excess, | performed at [facility];[address] | | LAB | | | Arterial | [address];[place] | | | | | | [address] | | | | + + + + + + | O2 SAT ART | 100 (H)Comment: Testing | 95 - 98 % | EXTERNAL | | | | performed at [facility];[address] | | LAB | | | | [address];[place] | | | | | | [address] | | | | + + + + + + | Sodium, POC | 138Comment: Testing | 135 - 145 mEq/L | EXTERNAL | | | | performed at [facility];[address] | | LAB | | | | [address];[place] | | | | | | [address] | | | | + + + + + + | Potassium, | 2.6 (LL)Comment: Testing | 3.5 - 5.0 mEq/L | EXTERNAL | | | POC | performed at [facility];[address] | | LAB | | | | [address];[place] | | | | | | [address] | | | | + + + + + + | Ionized | 0.98 (L)Comment: Testing | 1.12 - 1.32 | EXTERNAL | | | Calcium, | performed at [facility];[address] | mmol/L | LAB | | | POC | [address];[place] | | | | | | [address] | | | | + + + + + + | Glucose, | 146 (H)Comment: Testing | 65 - 99 mg/dL | EXTERNAL | | | POC | performed at [facility];[address] | | LAB | | | | [address];[place] | | | | | | [address] | | | | + + + + + + | Hematocrit, | 35 (L)Comment: Testing | 40.0 - 50.0 % | EXTERNAL | | | POC | performed at [facility];[address] | | LAB | | | | [address];[place] | | | | | | [address] | | | | + + + + + + | Hemoglobin, | 11.9 (L)Comment: Testing | 13.7 - 16.7 | EXTERNAL | | | POC | performed at [facility];[address] | g/dL | LAB | | | | [address];[place] | | | | | | [address] | | | | + + + [...] + | Diagnosis | + + | Alcohol abuse Alcohol abuse, unspecified | + + | Comatose (HCC) Coma | + + | Frequent falls Personal history of fall | + + | Seizure (HCC) Other convulsions | + + | Alcohol withdrawal (HCC) Alcohol withdrawal | + + | Cerebral edema (HCC) Cerebral edema | + + | Subdural hematoma, post-traumatic, sequela | + + | Traumatic brain injury, closed, sequela | + + documented in this encounter
--- OUTSIDE RECORDS SUMMARY | ~2020-03-25 | XMS | Encounter Summary ---
Demographics + + + | Address | [address] | | | [place] [address] | + + + | Home Phone | | + + + | Preferred Language | Unknown | + + + | Marital Status | | + + + | Worship Affiliation | Unknown | + + + | Race | Unknown | + + + | Ethnic Group | Unknown | + + + Author + + + | Author | [facility] | | | and [place] | + + + | Organization | [facility] | | | and [place] | + + + | Address | Unknown | + + + | Phone | Unavailable | + + + Support + + +---------+ + | Name | Relationship | Address | Phone | + + +---------+ + | Teressa Fortune | ECON | Unknown | + | + + +---------+ + | aJy Jay Fortune | ECON | Unknown | + | + + +---------+ + | Teressa Edouardalberletitia | ECON | Unknown | + | + + +---------+ + Care Team Providers + +------+ + | Care Education Reviewer Name | Role | Phone | + +------+ + PCP | Unavailable | + +------+ + Encounter Details +--------+ + + + + | Date | Type | Department | Care Team | Description | +--------+ + + + + | 07/18/ | Hospital | [facility] | Conversion | Intracranial injury | | 2015 | Encounter | [facility] [address] | Transaction, | of other and | | | | [address] | Provider Unknown | unspecified nature, | | | | [place], [place] | | without mention of | | | | [address] | | open intracranial | | | | [phone] | | wound, unspecified | | | | | | state of | | | | | | consciousness (HCC) | +--------+ + + + + [...] CT HEAD WO CONTRAST | Routin | 07/18/2015 | | Results for this | | | e | 1:17 PM | | procedure are in the | | | | PDT | | results section. | + +--------+ + + + documented in this encounter Results CT Head wo Contrast (07/18/2015 1:17 PM PDT) + + | Specimen | + + | | + + + + + | Impressions | Performed At | + + + | 1. Large right frontal/temporal/parietal craniotomy flap again | | | noted, with near complete resolution of the right hemispheric mass | | | effect, and with residual midline shift of 1.4 mm from right to left, | | | decreased from 5.9 mm on 05/30/15. 2. Subtle residual hypodense | | | right upper frontal and parietal subdural hemorrhage measuring 4 mm in | | | oblique dimension, decreased in density and size. 3. I suspect | | | mild focal encephalomalacia in the posterior medial right temporal | | | lobe measuring approximately 1.8 x 1.3 cm, better defined today. | | | | | + + + + + + | Narrative | Performed At | + + + | HISTORY: Cranial flap replacement. COMPARISON: | | | 05/30/15-09/11/09. TECHNIQUE: 5-mm axial noncontrast CT images of | | | the brain were acquired from the foramen magnum through the cranial | | | vertex. FINDINGS: Again there is a large right frontal | | | parietal/temporal craniotomy flap. The underlying small subdural | | | hemorrhage in the frontoparietal and temporal regions on the right has | | | improved, seen only in the upper frontal parietal region measuring up | | | to 4 mm oblique dimension, decreased in density from the previous | | | study. The drainage catheter has been removed. Previous midline shift | | | has improved, now measuring 1.4 mm, compared with 5.9 mm previous | | | study by my measurement. Subtle hypodensity in the posterior | | | medial right temporal lobe sequence 2 image 12 again noted. This may | | | represent a small area of encephalomalacia. | | + + + + + | Procedure Note | + + | Marlon Snatamaria Conversion - 05/05/2019 12:20 AM PDT HISTORY:Cranial flap replacement. | | COMPARISON:05/30/15-09/11/09. TECHNIQUE:5-mm axial noncontrast CT images of the brain | | were acquired from the foramen magnum through the cranial vertex. FINDINGS:Again there | | is a large right frontal parietal/temporal craniotomy flap. The underlying small | | subdural hemorrhage in the frontoparietal and temporal regions on the right has | | improved, seen only in the upper frontal parietal region measuring up to 4 mm oblique | | dimension, decreased in density from the previous study. The drainage catheter has been | | removed. Previous midline shift has improved, now measuring 1.4 mm, compared with 5.9 mm | | previous study by my measurement. Subtle hypodensity in the posterior medial right | | temporal lobe sequence 2 image 12 again noted. This may represent a small area of | | encephalomalacia. IMPRESSION: 1. Large right frontal/temporal/parietal craniotomy flap | | again noted, with near complete resolution of the right hemispheric mass effect, and | | with residual midline shift of 1.4 mm from right to left, decreased from 5.9 mm on | | 05/30/15.2. Subtle residual hypodense right upper frontal and parietal subdural | | hemorrhage measuring 4 mm in oblique dimension, decreased in density and size.3. I | | suspect mild focal encephalomalacia in the posterior medial right temporal lobe | | measuring approximately 1.8 x 1.3 cm, better defined today. | |3. I suspect mild focal encephalomalacia in the posterior medial right temporal lobe measu ring approximately 1.8 x 1.3 cm, better defined today. | | | | | + + documented in this encounter Visit Diagnoses + + | Diagnosis | + + | Intracranial injury of other and unspecified nature, without mention of open | | intracranial wound, unspecified state of consciousness | + + documented in this encounter"
--- OUTSIDE RECORDS SUMMARY | ~2020-03-25 | XMS | Encounter Summary ---
Demographics + + + | Address | [address] | | | [place] [address] | + + + | Home Phone | | + + + | Preferred Language | Unknown | + + + | Marital Status | Single | + + + | Mosque Affiliation | Unknown | + + + | Race | White | + + + | Ethnic Group | Not or | + + + Author + + + | Author | [facility] | + + + | Organization | [facility] | + + + | [...] Team Providers + +------+ + | Care Pumper Brewery Name | Role | Phone | + +------+ + PCP | Unavailable | + +------+ + Encounter Details +--------+ + + + + | Date | Type | Department | Care Team | Description | +--------+ + + + + | 12/27/ | Abstract | [facility] | Azeem Dietrich | | | 2011 | | [place] [address] [address] | | | [address] | [place], [place] | | | | | Mailcode: [id number] | [address] | | | | | [facility] | [phone] | | | | | and [address], | | | | | | [address] | | | | | | [place], [place] | | | | | | [address] | | | | | | [phone] | | | +--------+ + + + [...]
--- OUTSIDE RECORDS SUMMARY | ~2020-03-25 | XMS | Encounter Summary ---
Demographics + + + | Address | [address] | | | [place] [address] | + + + | Home Phone | | + + + | Preferred Language | Unknown | + + + | Marital Status | | + + + | Baptist Affiliation | Unknown | + + + | Race | Unknown | + + + | Ethnic Group | Unknown | + + + Author + + + | Author | [facility] | | | and [place] | + + + | Organization | [facility] | | | [...] Team Providers + +------+ + | Care Electronic Pagination System Operator Name | Role | Phone | + +------+ + PCP | Unavailable | + +------+ + Encounter Details +--------+ + + + + | Date | Type | Department | Care Team | Description | +--------+ + + + + | 08/30/ | Hospital | [facility] | | | | 2008 | Encounter | [facility] | | | | | | CONV DEPT [address] | | | | | | [place], | | | | | | [place] [address] | | | | | | [phone] | | | +--------+ + + + [...]
--- OUTSIDE RECORDS SUMMARY | ~2020-03-25 | XMS | Encounter Summary ---
Demographics + + + | Address | [address] | | | [place] [address] | + + + | Home Phone | | + + + | Preferred Language | Unknown | + + + | Marital Status | Single | + + + | Zoroastrian Affiliation | Unknown | + + + [...] Team Providers + +------+ + | Care Bonus Clerk Name | Role | Phone | + +------+ + PCP | Unavailable | + +------+ + Encounter Details +--------+ + + + + | Date | Type | Department | Care Team | Description | +--------+ + + + + | 03/25/ | Abstract | [facility] | Azeem Dietrich | | | 2010 | | [place] [address] [address] | [address] | | | | [address] | [place], [place] | | | | | Mailcode: OC8D | [address] | | | | | [facility] | [phone] | | | | | and [address], | | | | | | [address] | | | | | | [place], [place] | | | | | | [address] | | | | | | [phone] | | | +--------+ + + + [...]
--- OUTSIDE RECORDS SUMMARY | ~2020-03-25 | XMS | Encounter Summary ---
Demographics + + + | Address | [address] | | | [place] [address] | + + + | Home Phone | | + + + | Preferred Language | Unknown | + + + | Marital Status | Single | + + + | Latter-Day Affiliation | Unknown | + + + [...] Team Providers + +------+ + | Care Network Control Operator Name | Role | Phone | + +------+ + | Anny Ennis DO | PCP | Unavailable | + +------+ + Reason for Visit + + + | Reason | Comments | + + + | Liver Transplant | MD review | | Referral | | + + + Encounter Details +--------+ + + + + | Date | Type | Department | Care Team | Description | +--------+ + + + + | 12/13/ | Documentati | Clinical | Kennedi Doyle | Liver Transplant | | 2009 | on | Transplant Services | Kuldeep RN [address] | Referral ( review) | | | | [address] | [address] | | | | | [place], | [place], [place] | | | | | [place] [address] | [address] | | | | | [phone] | | | +--------+ + + + [...]
--- OUTSIDE RECORDS SUMMARY | ~2020-03-25 | XMS | Encounter Summary ---
Demographics + + + | Address | [address] | | | [place] [address] | + + + | Home Phone | | + + + | Preferred Language | Unknown | + + + | Marital Status | | + + + | Buddhist Affiliation | Unknown | + + + | Race | Unknown | + + + | Ethnic Group | Unknown | + + + Author + + + | Author | [facility] | | | and Olegarioana | + + + | Organization | [facility] | | [...] Team Providers + +------+ + | Care Change Management Expert Name | Role | Phone | + +------+ + PCP | Unavailable | + +------+ + Encounter Details +--------+ + + + + | Date | Type | Department | Care Team | Description | +--------+ + + + + | 09/11/ | Hospital | [facility] | Rosa Isela Vásquez, | End Stage Renal | | 2009 - | Encounter | [facility] | MD [address] | Disease (HCC) | | | | CARE FLOOR [address] | [facility] [address] [place], | | | 09/16/ | | [address] | [place] [address] | | | 2008 | | [place], [place] | [phone] | | | | | [address] | | | | | | [phone] | Maria Luisa Barry, | | | | | | [address] | | | | | | [place] [address] | | | | | | [phone] | | | | | | | [...] Performed At | + + + | [facility] | | | [facility] [place] [address] | | | , | | | [id number]/RADIOLOGY Patient Name: EVANS MCGUIRE Date of | | | : 1960 Medical Record: [id number] Account: | | | [id number] I/P/[facility] / Exam Date/Time: | | | 09/13/2009 [...] P A | | | 10:28 A /[facility]/[id number]/ cc: MD GIGI GARCIA | | | MD PEPITO | | + + + + + | Procedure Note | + + | Rosalio, Marlon Conversion - 05/14/2019 10:02 PM PDT | | [facility] | | [facility] [place] [address] | | , | | | | [id number]/RADIOLOGY | | | | Patient Name: EVANS MCGUIRE | | Date of : 1960 | | Medical Record: [id number] | | Account: [id number] | | I/P/[facility] / | | | | | | [...] | A | | A | | /boom/[id number]/ | | cc: JEFF AMANDA MD | | GIGI BEYER MD | + + XR Abdomen AP (09/12/2009 12:11 PM PST) + + | Specimen | + + | | + + + + + | Narrative | Performed At | + + + | [facility] | | | [facility] [place] [address] | | | , | | | [id number]/RADIOLOGY Patient Name: EVANS MCGUIRE Date of | | | : 1960 Medical Record: [id number] Account: | | | [id number] I/P/[facility] / Exam Date/Time: | | | 09/12/2009 [...] | | | 09/12/2009 01:48 P P BRIAN/carlota/[id number]/ cc: | | | MD GIGI ARTHUR MD | | + + + + + | Procedure Note | + + | Rosalio, Marlon Conversion - 05/14/2019 10:02 PM PDT | | [facility] | | [facility] [place] [address] | | , | | | | [id number]/RADIOLOGY | | | | Patient Name: EVANS MCGUIRE | | Date of : 1960 | | Medical Record: [id number] | | Account: [id number] | | I/P/[facility] / | | | | | | Exam Date/Time: 09/12/2009 12:00 P | | Ordering Provider: GGII BEYER | | Order Detail: [id number] / [...] | P | | P | | [facility]//[id number]/ | | cc: JOE CASILLAS MD | | GIGI BEYER MD | + + MRI Brain Wo MRA Head Wo (09/12/2009 11:17 AM PST) + + | Specimen | + + | | + + + + + | Narrative | Performed At | + + + | [facility] | | | [facility] [place] [address] | | | , | | | [id number]/RADIOLOGY Patient Name: EVANS MCGUIRE Date of | | | : 1960 Medical Record: [id number] Account: | | | [id number] I/P/[facility] / Exam Date/Time: | | | 09/12/2009 07:00 A Ordering Provider: MARIA LUISA BARRY Order | | | Detail: 830 / / HMR Exam Description: MRI BRAIN AND MRA HEAD [...] DT: | | | 09/12/2009 11:55 A J/lcr/[id number]/ cc: JOE CASILLAS MD | | | MD GIGI TOSCANO MD | | + + + + + | Procedure Note | + + | Marlon Santamaria Conversion - 05/14/2019 10:02 PM PDT | | [facility] | | [facility] [place] [address] | | , | | | | [id number]/RADIOLOGY | | | | Patient Name: EVANS MCGUIRE | | Date of : 1960 | | Medical Record: [id number] | | Account: [id number] | | I/P/[facility] / | | | | | | [...] | A | | A | | BRIAN/boom/[id number]/ | | cc: JOE CASILLAS MD | | MARIA LUISA BARRY MD | | GIGI BEYER MD | + + XR Chest 1 Vw (09/12/2009 5:40 AM PST) + + | Specimen | + + | | + + + + + | Narrative | Performed At | + + + | [facility] | | | [facility] [place] [address] | | | , | | | [id number]/Diagnostic Outsourced Patient Name: EVANS MCGUIRE | | | Date of : 1960 Medical Record: [id number] Account: | | | [id number] I/P/[facility] / Exam Date/Time: | | | 09/12/2009 05:00 A Ordering Provider: MARIA LUISA BARRY Order [...] A A | | | 09:19 A MM/ccv/[id number]/ cc: MD LYNNE TOSCANO | | | MD GIGI VILLEGAS MD | | + + + + + | Procedure Note | + + | Rosalio, Rad Conversion - 05/14/2019 10:02 PM PDT | | [facility] | | [facility] [place] [address] | | , | | | | [id number]/Diagnostic Outsourced | | | | Patient Name: EVANS MCGUIRE | | Date of : 1960 | | Medical Record: [id number] | | Account: [id number] | | I/P/[facility] / | | | | | | [...] | A | | A | | MM/ccv/[id number]/ | | cc: MARIA LUISA BARRY MD | | LYNNE VILLEGAS MD | | GIGI BEYER MD | + + CT Head wo Contrast (09/12/2009 2:49 AM PST) + + | Specimen | + + | | + + + + + | Narrative | Performed At | + + + | [facility] | | | [facility] [place] [address] | | | , | | | [id number]/Diagnostic Outsourced Patient Name: EVANS MCGUIRE | | | Date of : 1960 Medical Record: [id number] Account: | | | [id number] I/P/[facility]ÍN / Exam Date/Time: | | | [...] A A | | | 08:58 A MM/onel/[id number]/ cc: MD LYNNE TOSCANO | | | MD GIGI VILLEGAS MD | | + + + + + | Procedure Note | + + | Marlon Santamaria - 05/14/2019 10:02 PM PDT | | [facility] | | [facility] [place] [address] | | , | | | | [id number]/Diagnostic Outsourced | | | | Patient Name: EVANS MCGUIRE | | Date of : 1960 | | Medical Record: [id number] | | Account: [id number] | | I/P/[facility] / | | | | | | [...] | A | | A | | MM/onel/[id number]/ | | cc: MARIA LUISA BARRY MD | | LYNNE VILLEGAS MD | | GIGI BEYER MD | + + XR Chest 1 Vw (09/11/2009 8:25 PM PST) + + | Specimen | + + | | + + + + + | Narrative | Performed At | + + + | [facility] | | | [facility] [place] [address] | | | , | | | [id number]/RADIOLOGY Patient Name: EVANS MCGUIRE Date of | | | : 1960 Medical Record: [id number] Account: | | | [id number] I/P/[facility] / Exam Date/Time: | | | 09/11/2009 [...] | | | 09/11/2009 11:01 P P DTB//[id number]/ cc: | | | MD MARIA LUISA LITTLE MD HANI S | | | MD PEPITO | | + + + + + | Procedure Note | + + | Marlon Santamaria Conversion - 05/14/2019 10:02 PM PDT | | [facility] | | [facility] [place] [address] | | , | | | | [id number]/RADIOLOGY | | | | Patient Name: EVANS MCGUIRE | | Date of : 1960 | | Medical Record: [id number] | | Account: [id number] | | I/P/[facility] / | | | | | | [...] | P | | P | | DTB/gf/[id number]/ | | cc: RONNY RAYA MD | | MARIA LUISA BARRY MD | | GIGI BEYER MD | + + documented in this encounter Visit Diagnoses + + | Diagnosis | + + | End stage renal disease (HCC) End stage renal disease | + + documented in this encounter"
--- OUTSIDE RECORDS SUMMARY | ~2020-03-25 | XMS | Encounter Summary ---
Demographics + + + | Address | [address] | | | [place] [address] | + + + | Home Phone [...] Author | [facility] | + + + | Organization | [facility] | + + + | Address | [...] Team Providers + +------+ + | Care Kitchen Food Assembler Name | Role | Phone | + [...] | | | | [place], | | | | | | [place] [address] | | | +--------+ + + + [...] | | Patient: EVANS ASTORGA Med Rec: [id number] Sex M Bdate: 1960 | | Date/Time Data | | Entered Into [facility] | | Anesth PostOp | | Surgery Date [id number] 02/19/03 10:45 | | Anesthesiologist BARRETT HELLER 02/19/03 10:45 | | | + + documented in this encounter Visit Diagnoses Not on filedocumented in this encounter"
--- OUTSIDE RECORDS SUMMARY | ~2020-03-25 | XMS | Encounter Summary ---
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 | [address] | | | | | [facility] | [phone] | | | | | and Healing, | | | | | | [address] | | | | | | [place], [place] | | | | | | [address] | | | | | | [phone] | | | +--------+ + + + [...]
--- OUTSIDE RECORDS SUMMARY | ~2020-03-25 | XMS | Encounter Summary ---
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 | + + documented in this encounter Visit Diagnoses Not on filedocumented in this encounter"
--- OUTSIDE RECORDS SUMMARY | ~2020-03-25 | XMS | Encounter Summary ---
Demographics + + + | Address | [address] | | | [place] [address] | + + + | Home Phone | | + + + | Preferred Language | Unknown | + + + | Marital Status | | + + + | Baptism Affiliation | Unknown | + + + | Race | Unknown | + + + | Ethnic Group | Unknown | + + + Author + + + | Author | [facility] | | | and Olegarioana | + + + | Organization | [facility] | | [...] Team Providers + +------+ + | Care Belt Press Operator Name | Role | Phone | + +------+ + PCP | Unavailable | + +------+ + Encounter Details +--------+ + + + + | Date | Type | Department | Care Team | Description | +--------+ + + + + | 06/22/ | Hospital | [facility] | Sandip Hall MD | | | 2008 - | Encounter | [facility] | [address] | | | | | MED [address] [place] [address] S | [place] [address] | | | 06/23/ | | [address] | [phone] | | | 2008 | | [place], [place] | | | | | | [address] | Elizabeth Galan MD | | | | | [phone] | [address] | | | | | | [address] [facility] | | | | | | [place] [address] | | | | | | [phone] | | | | | | | [...] documented as of this encounter Discharge Summaries Tobin Galarza MD - 12/13/2011 4:00 AM PDTADMISSION DIAGNOSIS: Hepatic encephalopath y. DISCHARGE DIAGNOSIS: Hepatic encephalopathy. 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 His ammonia level was 112. For additional details on his past medical history and history of present illness, please see dictation by Dr. Hall on 06/22/2009. HOSPITAL COURSE: The patient was admitted to medical floor, given the lactulose initial rectally and then orally with improvement in his mental status. The next day the patient was requesting to leave as he needs to get back one to his rust and to return to his grandmother. We was offered the patient the ability to have his grandmother stay in a pullout bed in the room with him. He still desired to leave. He reported that he had his medications he had come in with except that he is uncertain how much lactulose he had. Although somewhat confused, the patient did appear to be competent to make decisions and was discharged to return to his [facility] clinic, which he promises me he will do tomorrow. MEDICATIONS ON DISCHARGE: 1. Lasix 40 mg p.o. b.i.d. as previously for his ascites. 2. Spironolactone 50 mg p.o. b.i.d. 3. Levothyroxine 75 mcg p.o. daily. 4. Ferrous sulfate 325 mg t.i.d. 5. Calcium with vitamin D twice daily. 6. Potassium chloride 20 mEq p.o. b.i.d. 7. Omeprazole 20 mg daily for GI protection. 8. Lactulose 30 mL p.o. every 4 hours to achieve 4-6 loose bowel movements a day. FOLLOW UP: He is to be checked tomorrow. Additional supplies of this medication were obtained from the pharmacy and given to patient to take. Dilaudid 8 mg once or twice daily as needed for his back pain. DIET: He was instructed on a low-sodium, 1.5 L fluid restriction for his swelling prior to discharge. ACTIVITY: The patient was instructed not to drive and to pull off the road areas to rest if his grandmother becomes too tired to drive and that he is not safe at this time until cleared by his primary physician assistant primary care. I spent 46 minutes seeing patient, coordinating discharge, and attempting to securities counselor him into staying. _ TOBIN GALARZA MD D: Yoselyn Jun 23 16:37:54 2008 EST T: Yoselyn Jun 23 23:55:09 2008 EST Authenticated by Tobin Galarza MD On 06/24/2009 06:22:14 AM NBASE SCAN [facility] - 06/23/2009 12:00 AM PDT documented in this enc ounter Progress Notes [facility] 06/24/2009 12:00 AM PDT NBASE SCAN [facility]IEGO 06/24/2009 12:00 AM PDT NBASE SCAN [facility] - 06/24/2009 12:00 AM PDT documented in this encounter H&P Notes Sandip Hall MD - 12/13/2011 4:01 AM PDTCHIEF COMPLAINT: Weakness and change in mental status. HPI: The patient is a 48-year-old with a past medical history of liver cirrhosis secondary to alcoholism and hepatitis B secondary to drug abuse, who came into the ER of [place], brought in by his mother with weakness and change in his mental status. The patient is the resident of the [place] in [place], [place] and was visiting over here at [facility], where he developed altered mental status and he was very, very weak. He was brought in by mother and according to the mother, he was perfectly fine. After he was involved in some activities over here at the [facility] and later on mother noticed that he was getting a little bit confused and then eventually passes out. 911 was called and the patient was brought into the ER. Mother also brought in a letter from his regular doctor, which has been made a part of this chart from [facility]. According to that letter, which listed his medical problems which says that the patient has end-stage liver disease due to alcoholism and had a recent alcohol-induced coma, anasarca and ascites and was diagnosed with liver cirrhosis. According to that letter, the mother said that the doctor told her that the patient would get benefit from a professional facility to assist him in the management of his liver cirrhosis and alcohol problem, but there is not much history because I was not able to speak to the patient because of the level of consciousness and by the time I saw the patient, the mother left. The old history had been gotten by the nurse and Dr. Neela Prado the ER doctor. PAST MEDICAL HISTORY: According to his letter are listed as 1. Liver cirrhosis. 2. Anasarca. 3. Ascites. 4. Dyslipidemia. 5. Anemia. 6. Vitamin deficiency. 7. Hypothyroidism. 8. Constipation. 9. Osteoarthritis. SURGICAL HISTORY: Unknown. SOCIAL HISTORY: The patient stopped drinking a few months ago. The patient has been sober for a few months and stopped smoking. Not known street drugs recently. He resides in a [place] in [place], [place]. He was visiting over here at the [facility]. The patient's PCP is at the [facility] in [place], [place]. His letter has been made part of the chart ALLERGIES: Unknown. MEDICATIONS: Apparently the patient's mother did bring the medications list, but without any dose. Will confirm the doses tomorrow with the pharmacy, which includes patient takes 1. Furosemide unknown dose b.i.d. 2. Spironolactone b.i.d. 3. Levothyroxine. 4. Ferrous sulfate b.i.d. 5. Calcium plus vitamin D. 6. Potassium chloride. 7. Omeprazole. 8. Docusate b.i.d. 9. Hydromorphone as needed. 10. Lactulose as needed. 11. Gabapentin at bedtime. This is the medication list, but we do not know the doses. Will confirm the doses tomorrow. PHYSICAL EXAMINATION: VITAL SIGNS: At the time of evaluation, his blood pressure was 121/80, pulse of 81, saturation 95 percent on 2 L of oxygen. Afebrile. GENERAL: Patient's GCS coma scale was 4. The patient can open his eyes on command and that the only thing he can do and go back to sleep. HEENT: Normocephalic. PERRLA. CARDIOVASCULAR: Regular rate and rhythm. RESPIRATORY: He has coarse breath sounds. ABDOMEN: The patient has ascites all over his belly and very bloated belly. Bowel sounds are positive. EXTREMITIES: Two plus edema. SKIN: No rash. NEUROLOGIC: Unobtainable because of the patient's consciousness. LABORATORY/DIAGNOSTIC STUDIES: UA positive for urobilinogen. Tox screen positive for opioids. All other things negative. CBC: White count of 7.9, H and H of 10.8 and 32.2, platelet count of 168,000. Lipase is 27. CMP: Glucose is 143, BUN 24, creatinine 1.15, calcium 9, alkaline phos 92, AST 47, ALT 35. Total bilirubin 1.2, total protein 7.1, albumin 3.1, sodium 131, potassium 4.5, chloride 97, bicarb 25, ammonia level of 112. ASSESSMENT: 1. Hepatic encephalopathy. 2. Liver cirrhosis. 3. Hypotension. 4. Hyponatremia. 5. Acute renal failure. 6. Anemia. 7. History of hypothyroidism. PLAN: The patient will be admitted to the medical floor. The patient has an ammonia level of 112. Probably the patient has hepatic encephalopathy/coma at this time, and the patient is not safe enough to take p.o. medications because of his mental status. As for the patient's mental status, we will try lactulose enema as ordered, and every four hours. We will restrict the IV fluids to 1000 mL an hour and a low-protein diet. The patient is going to be NPO for tonight, but will recommend low-protein diet for his hepatic condition. Will repeat his CMP and CBC in the a.m. The patient has guaiac-positive stools over here. Might need an EGD for his anemia. Will decide in the a.m. if we should proceed with the EGD or not as the patient's mental status has not been improved as of yet. Will continue his Lasix and spironolactone, levothyroxine for now. The rest of the hospital course will depend on the patient's response to the medical treatment. Will update his medication list more and discuss with the family as well for the placement. _ Sandip Hall MD D: Jac Jun 22 22:49:17 2008 EST T: Yoselyn Jun 23 00:07:16 2008 EST Authenticated by Sandip Hall MD On 07/02/2009 08:14:11 AM NSARAH GORDON - 06/22/2009 12:00 AM PDTElectronica lly signed by Ricky Murillo at 06/02/2013 4:21 PM PDTdocumented in this encounter Procedure Notes ONSARAH GORDON - 06/25/2009 12:00 AM PDT 13 1:55 PM PDTONSARAH GORDON - 06/24/2009 12:00 AM PDT NSARAH GORDON - 06/24/2009 12:00 AM PDT NBASE SCAN [facility] - 06/23/2009 12:00 AM PDTElectro nically signed by Ricky Murillo at 06/25/2013 1:55 PM PDTdocumented in this encounter OR Notes Anesthesia Procedure Notes - ONBASE SCAN [facility] - 06/24/2009 12:00 AM PDTElectronically tamara d by Ricky Murillo at 06/02/2013 4:21 PM PDTdocumented in this encounter ED Notes Physician, Er - 12/13/2011 4:01 AM PDTERCHART ER NOTE [facility] Name: [facility] (16:19 CEH) NOTES: Last FRANTZ, First: KRUEGER, C/O WEAKNESS,HX LIVER DZ, BP: 110/62, HR: 80, RR: 20. TRIAGE ([facility] Jun 22, 2009 16:48 CEH) COMPLAINT: COMPLAINT: WEAKNESS. ([facility] Jun 22, 2009 16:48 CEH) PROVIDERS: TRIAGE NURSE: Tobin Lao RN. ([facility] Jun 22, 2009 16:48 CEH) ADMISSION: URGENCY: Level 3, AMBULANCE: [facility], TRANSPORT: Aid 1 ([facility]), BED: EXAM 03. ([facility] Jun 22, 2009 16:48 CE[facility]) PATIENT: NAME: Tony Fortune, AGE: 48, GENDER: male, : Wed1960, TIME OF GREET: Sat Jun 22, 2009 16:30, FAST TRACK: NO, , , PERSON ID: [id number], PCP: Local No. ([facility] Jun 22, 2009 16:48 CEH) NURSING HPI: Pt presents somnolent and confused. EMS states pt complained of increasing weakness. (17:06 ALN) PAIN: Patient complains of pain. Patient unable to relate pain to scale. (17:06 ALN) DOMESTIC VIOLENCE: Unobtainable. (17:06 ALN) JON FALL SCALE: History of falling: No, 0, Is there a secondary diagnosis: Yes, 15, Ambulatory aid: None/BR/WC/Nurse, 0, Gait/transferring: Impaired, 20, IV/heparin lock: Yes, 20, Mental Status: Forgets limitations, 15, Inital Total 70, Yes, fall prevention bracelet was applied. (17:06 ALN) TRIAGE VS: BP: 96, / 46, Pulse: 72, Resp: 10, Temp: 97.4 o, Pain: UTR, O2 sat: 97, ra, Time: 1630. (17:06 ALN) PAST MEDICAL HISTORY (17:06 ALN) MEDICAL HISTORY: History of endocrine disease. including hypothyroidism, History of gastrointestinal disease. including cirrhosis, hepatitis, B, alcoholic, constipation, history of recent alcohool induced coma, anasarca, and ascites. In end stage liver failure. SOCIAL HISTORY: Lives with others. Lives at home with family, Recovering from illegal street drugs. KNOWN ALLERGIES Unable to obtain. CURRENT MEDICATIONS Lasix: 80mg PO (By Mouth) BID (Twice daily). (17:27 ALN) Spironolactone: 50mg PO (By Mouth) BID (Twice daily). (17:27 ALN) Synthroid: 75mcg PO (By Mouth) Once daily. (17:28 ALN) Ferrous Sulfate: 325mg PO (By Mouth) TID (Taken three times daily). (17:34 ALN) Gabapentin: 300mg PO (By Mouth) HS (AT BEDTIME). (17:35 ALN) Calcium Citrate with Vitamin D: 1tab PO (By Mouth) Once daily. (17:36 ALN) Potassium Chloride: 20 mEq PO (By Mouth) Once daily. (17:36 ALN) Omeprazole: 40 mcg PO (By Mouth) Once daily. (17:37 ALN) Docusate Sodium: 100mg PO (By Mouth) TID (Taken three times daily). (17:39 ALN) Dilaudid: 4mg PO (By Mouth) As Needed. every 4-6hours. (17:40 ALN) Lactulose: 10gm PO (By Mouth) TID (Taken three times daily). take TID to treat and prevent complications of liver disease. (17:41 ALN) MEDICATION ADMINISTRATION SUMMARY (21:53) Drug Name: *Lactulose, Dose: 20 Gram, Route: PO (By Mouth), Status: Given, Time: 21:23 06/22/2009, Drug Name: lactulose 30 ml, Dose: * , Route: PO (By Mouth), Status: Given, Time: 21:17 06/22/2009, Drug Name: *carafate 1 gm/10 ml, Dose: * , Route: PO (By Mouth), Status: Given, Time: 20:42 06/22/2009, Drug Name: protonix 40 mg, Dose: * , Route: IV (Intravenous), Status: Given, Time: 19:16 06/22/2009, Drug Name: *NS, Dose: * , Route: IV Fluid, Status: Given, Time: 19:16 06/22/2009, Drug Name: *Narcan, Dose: 0.4 mg, Route: IVP, Status: Given, Time: 19:09 06/22/2009, *Additional information available in notes, Detailed record available in Medication Service section. MEDICATION SERVICE carafate 1 gm/10 ml: Free Text order: carafate 1 gm/10 ml : 10 ml : PO (By Mouth) Ordered by: Emeka Rodriguez MD Entered by: Emeka Rodriguez MD Sat Jun 22, 2009 19:43 , Acknowledged by: Marija Soler RN Sat Jun 22, 2009 20:10 Documented as given by: Yari Garg RN Sat Jun 22, 2009 20:42 Patient, Medication, Dose, Route and Time verified prior to administration. Time given: 2041, Amount given: 1g. (19:43 PO1) Lactulose: Order: Lactulose : 20 Gram : PO (By Mouth) Time: 2121 Notes: verbal rb Ordered by: Emeka Rodriguez MD Entered by: Yari Garg RN Sat Jun 22, 2009 21:22 Documented as given by: Yari Garg RN Sat Jun 22, 2009 21:23 Patient, Medication, Dose, Route and Time verified prior to administration. Time given: 2121, Amount given: 20g, Co-signed by: Graham Hicks RPH Sat Jun 22, 2009 21:24 , Co-signed by: Graham Hicks RPH Sat Jun 22, 2009 21:24 . (21:22 PO1) lactulose 30 ml: Free Text order: lactulose 30 ml : : PO (By Mouth) Ordered by: Emeka Rodriguez MD Entered by: Emeka Rodriguez MD Sat Jun 22, 2009 21:15 Documented as given by: Marija Soler RN Sat Jun 22, 2009 21:17 Patient, Medication, Dose, Route and Time verified prior to administration. Time given: 2114, Amount given: 30ml, Site: Medication administered P.O., Correct patient, time, route, dose and medication confirmed prior to administration. Patient advised of actions and side-effects prior to administration, Allergies confirmed and medications reviewed prior to administration, Patient in position of comfort. Side rails up, Cart in lowest position, Call light in reach. (21:15 PO1) Narcan: Order: Narcan (Naloxone Hydrochloride) : 0.4 mg : IVP Time: 1899 POTENTIAL SEVERE INTERACTION: Dilaudid Notes: verbal rb Ordered by: Emeka Rodriguez MD Entered by: Yari Garg RN Sat Jun 22, 2009 19:09 Documented as given by: Yari Garg RN Sat Jun 22, 2009 19:09 Patient, Medication, Dose, Route and Time verified prior to administration. Time given: 1899, Amount given: 0.4mg, Co-signed by: Graham HicksLoraine [facility] Jun 22, 2009 19:11 . (19:09 PO1) NS: Free Text order: NS : 500 ml bolus then 250ml/hr : IV Fluid Ordered by: Emeka Rodriguez MD Entered by: Emeka Rodriguez MD Sat Jun 22, 2009 19:09 , Acknowledged by: Yari Garg RN Sat Jun 22, 2009 19:09, [facility]signed [facility], [facility] 19:11 Documented as given by: Yari Garg RN Sat Jun 22, 2009 19:16 Patient, Medication, Dose, Route and Time verified prior to administration. Time given: 1913, Amount given: 1L. (19:09 PO1) : Follow Up : Time: 2099, Medication infusion discontinued, at 2099. (19:34 BHA) protonix 40 mg: Free Text order: protonix 40 mg : : IV (Intravenous) Ordered by: Emeka Rodriguez MD Entered by: Emeka Rodriguez MD Sat Jun 22, 2009 19:08 , Acknowledged by: Yari Garg RN Sat Jun 22, 2009 19:09, Co-signed by: [facility] Jun [facility], 2009 19:11 Documented as given by: Yari Garg RN Sat Jun 22, 2009 19:16 Patient, Medication, Dose, Route and Time verified prior to administration. Time given: 1913, Amount given: 40mg. (19:08 PO1) VITAL SIGNS VITAL SIGNS: BP: 130, / 55, Pulse: 85, Resp: 12, Pain: unable, O2 sat: 130, 55. (20:56 BHA) BP: 96/46, Pulse: 72, Resp: 10, Temp: 97.4 o, Pain: UTR, O2 sat: 97 on ra, Time: 06/22/2009 17:06. (17:06 ALN) BP: 89/29, Pulse: 69, Resp: 9, Pain: UTR, O2 sat: 100 on ra, Time: Sat Jun 22, 2009 17:45. (17:45 ALN) BP: 111/46, Pulse: 70, Resp: 16, Pain: UTR, O2 sat: 100 on ra, Time: Sat Jun 22, 2009 17:58. (17:58 ALN) BP: 111/55, Pulse: 97, Resp: 21, O2 sat: 100 on 2L nc, Time: 06/22/2009 19:28. (19:29 BHA) BP: 130/55, Pulse: 82, Resp: 17, Pain: UTR, O2 sat: 96 on ra, Time: Sat Jun 22, 2009 20:47. (20:48 ALN) BP: 130/55, Pulse: 85, Resp: 12, Pain: unable, O2 sat: 130 on 55, Time: 06/22/2009 20:56. (20:56 BHA) BP: 102/53, Pulse: 71, Resp: 13, Pain: UTR, O2 sat: 99 on 2l, Time: Sat Jun 22, 2009 21:20. (21:20 ALN) NURSING ASSESSMENT: HEAD-TO-TOE (17:24 BHA) CONSTITUTIONAL: Complex assessment performed. Patient appears comfortable. Patient is cooperative, Patient's skin is warm and dry, Patient's mucous membranes are moist and pink, Patient arrives to treatment area via EMS, Patient lifted to cart. History obtained from family, Mother. Patient is generally ill appearing, confused, lethargic, Patient is oriented to person. NEURO: Pupils PERRL, Motor strength to all extremities are strong and equal. Patient denies paresthesias. No facial droop noted. Patient denies headache, nausea, vomiting, Patient's speech is clear and understandable, GCS Eye Openin, GCS Verbal Response: 4, GCS Motor Response: 6, The GCS total is 13. Patient noted to have generalized tremors. RESPIRATORY/CHEST: No complaint of pain. Breath sounds clear bilaterally. No acute respiratory distress, intercostal retractions, supraclavicular retractions, Equal chest expansion, No nasal flaring, cough. CARDIOVASCULAR: Patient denies chest pain. Normal sinus rhythm on monitor. No extremity edema noted, Positive peripheral pulses bilaterally. ABDOMEN: Patient denies abdominal pain. Abdomen is soft to palpation, nontender, Positive bowel sounds in all 4 quadrants. Patient denies nausea, vomiting, diarrhea, constipation, flank tenderness. No pulsatile masses noted to abdomen. GENITOURINARY MALE: No complaint of pain. No discharge, urinary complaints. PSYCH/SOCIAL: Patient denies visual hallucinations, auditory hallucinations, tactile hallucinations, suicidal ideation, homicidal ideation. No reports of overdose. Patient has flat affect. NOTES: Pt arrives EMS. Pt lies in bed with eyes closed and does not open eyes when talking. Very difficult to communicate with patient. Pt confused and only oriented to self and mother. Pt tremoring. C/o constipation. . NURSING PROCEDURE: OBSERVATORY DIRECTOR (17:07 ALN) TIME: Patient's identity verified by, patient stating name, patient stating date. Patient placed on monitoring analyst, placed on non-invasive blood pressure monitor, placed on continuous pulse Oximetry, After procedure, alarms set and on, Patient tolerated procedure well. NURSING PROCEDURE: IV (17:07 ALN) SAFETY: Cart in lowest position, Call light within reach. TIME: Patient's identity verified by, patient stating name, patient stating date, IV established, 20 gauge catheter inserted, into left AC, #1 site. in 1 attempt, Saline lock established, Amount 5 ml, Labs drawn at time of placement, Specimen labeled in the presence of the patient and sent to lab, After procedure, no swelling noted at site, After procedure, no drainage noted at site, After procedure, no redness, 2x3 ensure dressing applied. Patient tolerated procedure well. NURSING PROCEDURE: URINE COLLECTION (17:11 BHA) URINE COLLECTION MALE: 16fr simple yip catheter preconnected. NURSING PROCEDURE: NURSE NOTES (17:13 A) TIME: Time: 1711, Pt sleeping in bed. Yip catheter inserted, urine yellow and clear. . NURSING PROCEDURE: NURSE NOTES (19:28 BHA) TIME: Time: 1917 , Pt's spo2 dropped to 87%, applied oxygen, 2L nc. Increased spo2 to 100%. Pt difficult to arouse, snoring when sleeping. Raised HOB 60 degrees. Mother at bedside. . NURSING PROCEDURE: NURSE NOTES (19:29 A) TIME: Time: 192, Pt's spo2 dropped to 85%, having apneic periods while asleep. Notified MD. Nasophangeal tube at bedside. VITAL SIGNS: BP: 111, / 55, Pulse: 97, Resp: 21, O2 sat: 100, 2L nc. NURSING PROCEDURE: NURSE NOTES (19:29 A) TIME: Time: 1926, Admitting MD in to eval patient. . NURSING PROCEDURE: NURSE NOTES (19:38 A) TIME: Time: 1800, Pt sleeping in bed. Mother at bedside. VSS. No change in status at this time. Will continue to monitor. . NURSING PROCEDURE: LAB DRAW (19:50 PRP) TIME: Patient's identity verified by, patient stating name, patient stating date, Indications for procedure: obtain specimens for evaluation, Venipuncture performed/labs sent, Blood obtained from right AC and labs sent. in 1 attempt, Lab specimens labeled and sent to lab, After procedure, dressing applied to site, After procedure, no swelling, After procedure, no active bleeding. Patient tolerated procedure well. NURSING PROCEDURE: DISPOSITION (20:55 A) ADMISSION: Report called at 2054. acuity level was urgent, admitted to, med-surg unit, Report called/faxed to Testt with call back number, Patient transported via, cart, Accompanied by, emergency room gallery or museum technician, Transported with, oxygen, Belongings are. with patient. ORDERS Blood NEEDED if not obtained by [facility] for IBEX on [facility] Jun 22, 2009 16:55 Status: Done by [facility] Jun 22, 2009 17:01. ua/utox by [facility] for IBEX on [facility] Jun 22, 2009 16:55 Status: Done by [facility] Jun 22, 2009 17:10. Reason: cbc, cmp, lipase, ammonia need banded tube for TandS please by KATE for PO1 on Sat Jun 22, 2009 19:36 Status: Done by PRP Sat Jun 22, 2009 19:50. DIAGNOSIS (21:53 KH1) FINAL: PRIMARY: hepatic encephalopathy, ADDITIONAL: Altered mental status [not associated with alcohol. DISPOSITION PATIENT: Disposition: Admit-PCU. (19:40 KDJ) Disposition: Admit-Medical Unit. (20:23 KDJ) Condition: Stable, Call Back Status: Patient Admitted, Call Back Reason: * N/A (Not applicable), Remove from ER. (21:53 KH1) NOTES: Dx transcribed from EMAP Chart for Provider. (:53 KH1) PRESCRIPTION: No recorded prescriptions ADMIN (:23 BHA) DIGITAL SIGNATURE: MICHELL Garg, Yari Calvin PATIENT DATA CHANGE: Primary Nurse changed from (none) to Yari Garg RN. Attending changed from (none) to Emeka Rodriguez MD. Foundry Worker General changed from (none) to Marija Soler RN. Primary Nurse changed from Yari Garg RN to Ama Diaz RN. Primary Nurse: Marija Soler RN. Foundry Worker General changed from Marija Soler RN to Yari Garg RN. Admit Area: reg. [id number] by Interface, Payment: O2, Zip Code: [address], Language: E, Race: 5, SSN: [id number], COPAY NEEDED: N. Race: (none), Admit Room: C2, Payment: (none), COPAY NEEDED: (none). Admit Room: (none). Admit Room: 203. Nichols: MARIJA=MICHELL Soler, Marija STEVE=MICHELL Garg, Yari Calvin CEH=MICHELL Lao, Tobin POLLOCKK=MICHELL Whyte, Kelle LEE=MICHELL Diaz, Ama AVILA=MICHELL Reynaga, Terra LOVE=Milena Sanchez KH1=MICHELL Frank, Judi PO1=MD Jennifer, Emeka PRP=GUERRERO Pearl, Per documented in this encounter Miscellaneous Notes Plan of Care - ONBASE SCAN [facility] - 07/10/2009 12:00 AM PDT atient Care Conference - ONBASE SCAN [facility] - 06/25/2009 12:00 AM PDT iscellaneous - ONBASE SCAN [facility] - 06/25/2009 12:00 AM PDT 4:2 1 PM PDTPatient Care Conference - ONBASE SCAN [facility] - 06/24/2009 12:00 AM PDTElectronically s igned by Ricky Murillo at 06/02/2013 4:21 PM PDTPlan of Care - ONBASE SCAN [facility] - 06/24/2009 12:00 AM PDT lan of Care - ONBASE SCAN [facility] - 06/24/2009 12:00 AM PDTElectronically signed by Ricky Murillo at 3 4:21 PM PDTPlan of Care - ONBASE SCAN [facility] - 06/24/2009 12:00 AM PDT lan of Care - ONBASE SCAN [facility] - 06/24/2009 12:0 0 AM PDT lan of Care - ONBAS E SCAN [facility] - 06/24/2009 12:00 AM PDT 4: 21 PM PDTPlan of Care - ONBASE SCAN [facility] - 06/24/2009 12:00 AM PDT iscellaneous - ONBASE SCAN [facility] - 06/24/2009 12:00 AM PDT iscellaneous - ONBASE S CAN [facility] - 06/24/2009 12:00 AM PDT iscellaneous - ONBASE SCAN [facility] - 06/24/2009 12:00 AM PDT iscellaneous - ONBASE SCAN [facility] 06/24/2009 12:00 AM P DT iscellaneous - ONBASE SCA N [facility] 06/24/2009 12:00 AM PDT iscellaneous - ONBASE SCAN [facility] 06/24/2009 12:00 AM PDT iscellaneous - ONBASE SCAN [facility] 06/24/2009 12:00 AM PDT iscellaneous - ONBASE SCAN [facility] 06/24/2009 12:00 AM PDT P DTMiscellaneous - ONBASE SCAN [facility] 06/24/2009 12:00 AM PDT iscellaneous - ONBASE SCAN [facility] 06/24/2009 12:00 AM PDTEl ectronically signed by Ricky Murillo at 06/02/2013 4:21 PM PDTMiscellaneous - ONBASE SCAN [facility] - 06/24/2009 12:00 AM PDT Miscellaneous - ONBASE SCAN [facility] 06/24/2009 12:00 AM PDT npatient Medication Chart - ONBASE SCAN [facility] 06/24/2009 12: 00 AM PDT lan of Care - ONBA SE SCAN [facility] - 06/22/2009 12:00 AM PDT 1 :55 PM PDTMiscellaneous - BECKY SCAN [facility] - 06/22/2009 12:00 AM PDT documented in this encounter Plan of Treatment Not on filedocumented as of this encounter Procedures + +--------+ + + + | Procedure Name | Priori | Date/Time | Associated Diagnosis | Comments | | | ty | | | | + +--------+ + + + | XR CHEST PA OR AP | | 06/22/2009 | | Results for this | | | | 5:46 PM | | procedure are in the | | | | PDT | | results section. | + +--------+ + + + documented in this encounter Results XR Chest PA or AP (06/22/2009 5:46 PM PDT) + + | Specimen | + + | | + + + + + | Impressions | Performed At | + + + | IMPRESSION: No acute infiltrate or consolidation. | [facility] | | No apparent pneumothorax is seen. Dictated | | | By: Sagar Phelps M.D. 06/23/2009 10:33:10 AM | | + + + + + + | Narrative | Performed At | + + + | CHEST 1V PORTABLE DATE OF EXAM: 06/22/2009 INDICATION: | [facility] | | -weakness/fatigue FINDINGS: The heart and mediastinal contour | | | appear unremarkable. There is no acute infiltrate or consolidation. | | | There is no apparent pneumothorax or pleural effusion. The | | | lucency in the right lateral sulcus appears related to an artifact. | | | There is mild bony spurring in the AC joint. [place] EXAM NUMBER: | | | [id number] CHEST 1V [id number] | | + + + + + | Procedure Note | + + | Rosalio, Rad Conversion - 10/20/2011 9:09 PM [facility] CHEST 1V PORTABLE | | | | DATE OF EXAM: 06/22/2009 | | | | INDICATION: -weakness/fatigue | | | | FINDINGS: The heart and mediastinal contour appear | | unremarkable. There is no acute infiltrate or consolidation. | | | | There is no apparent pneumothorax or pleural effusion. The | | lucency in the right lateral sulcus appears related to an | | artifact. There is mild bony spurring in the AC joint. | | [place] EXAM NUMBER: [id number] CHEST 1V [id number] | | IMPRESSION: | | IMPRESSION: No acute infiltrate or consolidation. | | | | No apparent pneumothorax is seen. | | | | Dictated By: Sagar Phelps M.D. 06/23/2009 10:33:10 AM | + + + +---------+ + + | Performing | Address | City/State/Zipcode | Phone Number | | Organization | | | | + +---------+ + + | [facility] | | | | + +---------+ + + documented in this encounter Visit Diagnoses Not on filedocumented in this encounter"
--- OUTSIDE RECORDS SUMMARY | ~2020-03-25 | XMS | Encounter Summary ---
Demographics + + + | Address | [address] | | | [place] [address] | + + + | Home Phone | | + + + | Preferred Language | Unknown | + + + | Marital Status | Single | + + + | Denominational Affiliation | Unknown | + + + [...] Team Providers + +------+ + | Care Household Worker Name | Role | Phone | [...] | Transcriptions | + + | Interface, Crane Man In - 04/16/2006 1:08 AM PDT | | [address] | | [place], [place] [id number] | | [facility]ORDMed Rec No.: | | [...] [place] done | | [place] were happy [place] splint him if [...] isgoing to follow up | | in [place], although, if cares to come back here, wewill be happy to see him in Dr. | | Rodo Maldonado, adult orthopedic clinic.Wade Villalta M.D.FARTUN/ellyoD: 02/17/2003T: | | 02/17/2003 12:31 [id number] | |OPERATIONS PERFORMED: The patient was taken [...] is | |going to follow up in [place], although, if cares to come back here, we | |will be happy to see him in Dr. Rodo Maldonado, adult orthopedic clinic. | | | | | | | |Wade Villalta M.D. | | | |Donaldo | | | | P | |[phone] | + + documented in this encounter Visit Diagnoses Not on filedocumented in this encounter"
--- OUTSIDE RECORDS SUMMARY | ~2020-03-25 | XMS | Encounter Summary ---
Demographics + + + | Address | [address] | | | [place] [address] | + + + | Home Phone | | + + + | Preferred Language | Unknown | + + + | Marital Status | Single | + + + | Adventism Affiliation | Unknown | + + + | Race | White | + + + | Ethnic Group | Not or | + + + Author + + + | Author | [facility] | + + + | Organization | [facility] | + + + | [...] Team Providers + +------+ + | Care Roads And Parking Lots Sweeper Operator Name | Role | Phone | [...] | | | | [place]az [place], | | | | | | [place] [address] | | | +--------+ + + + [...] | | Patient: EVANS ASTORGA Med Rec: [id number] Sex M Bdate: 1960 | | Date/Time Data | | Entered Into [facility] | | Anesth PostOp | | Surgery Date [id number] 02/19/03 10:45 | | Anesthesiologist BARRETT HELLER 02/19/03 10:45 | | | + + documented in this encounter Visit Diagnoses Not on filedocumented in this encounter"
--- OUTSIDE RECORDS SUMMARY | ~2020-03-25 | XMS | Encounter Summary ---
Demographics + + + | Address | [address] | | | [place] [address] | + + + | Home Phone | | + + + | Preferred Language | Unknown | + + + | Marital Status | Single | + + + | Religion Affiliation | Unknown | + + + [...] Team Providers + +------+ + | Care Shut Off Worker Name | Role | Phone | [...] | | | | Dy[place] De [place]az [place], | [place], [place] | office) | | | | [place] [address] | [address] | | | | | [phone] | | | +--------+ + + + [...]
--- OUTSIDE RECORDS SUMMARY | ~2020-03-25 | XMS | Encounter Summary ---
Demographics + + + | Address | [address] | | | [place] [address] | + + + | Home Phone [...] Team Providers + +------+ + | Care Ice Seller Name | Role | Phone | + [...] | | | | | [facility] | [place] [address] | | | | | [place] [address] | | | | | | [phone] | | | +--------+ + + + [...]
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
--- OUTSIDE RECORDS SUMMARY | ~2020-03-25 | XMS | Encounter Summary ---
Demographics + + + | Address | [address] | | | [place] [address] | + + + | Home Phone [...] Team Providers + +------+ + | Care Student Assistant Name | Role | Phone | [...] + | 06/19/ | Anesthesia | [facility] | Tony Molina MD | | | 2019 | Event | [facility] | [address] | | | | | OP [address] | [place] [address] | | | | | [place] | [phone] | | | | | [address] | | | | | | [phone] | Ha Herrmann, | | | | | | CLINICAL DIETICIAN [address] | | | | | | [place] [address] | | | | | | [phone] | | | | | | | | +--------+ + + + + Anesthesia Record + + + + + | Procedure Name | Responsible | Anesthesia Start | Anesthesia Stop Time | | | Anesthesiologist | Time | | + + + + + | CLOVER DSOUZA FRACTURE | Tony Molina MD | 06/19/19 [...] +----+---+ + + | | 0 | [place] | | | | 9 | 43-degrees [...] +----+---+ + + | | 1 | [place] off | | | | 0 | [...] + + + | Periph | 06/18/19; 34; Left; | 06/18/1934 by | 06/22/191002 by | | storml | Antecubital; pressure injectable; | Negrita Verma RN | Nayana Adamson, | | IV | 20 gauge; other (see comments); | | Hospice Massage Therapist | | | lost patency; 06/22/19; 1003 | | | +--------+ + + + | Brace/ | 06/18/19; 1929; cervical collar; | 06/18/190 by | 06/22/19 1052 by | | Orthot | neck; 06/22/19; 1052 | Brijesh White, | Michelle Warner RN | | ic/Ort | | RN | | | hosis | | | | +--------+ + + [...] Periph | 06/19/19; 929 (created via | 06/19/19 0930 by | 12/01/19 113 by | | eral | procedure documentation); Left; | Ha Herrmann CRNA | Christiane Frye RN | | IV | Distal; Wrist; 18 gauge; | | | | | 12/01/19; 1137 | | | +--------+ + + + | Wound | 06/19/19; 1026; Incision; Right; | 06/19/19 1026 by | 12/01/19 1137 by | | | arm; 12/01/19; 1137 | Liana Hopson RN | Christiane Frye RN | +--------+ + + + documented in [...] + + documented as of this encounter OR Notes Anesthesia Postprocedure Evaluation - Tony Molina MD - 06/19/2019 3:21 PM PDTFormattin g of this note might be different from the original. ANESTHESIA POSTANESTHESIA EVALUATION Tony Sánchez 58 y.o. male 1960 [id number] Procedure(s) ORIF ULNA FRACTURE (Right Arm Lower) Cooperates? Yes Mental Status Performs simple tasks. Respiratory Satisfactory - Airway patent (self maintained). Cardiovascular Satisfactory - Blood pressure and heart rate acceptable Temperature Satisfactory Pain Satisfactory N/V Control Satisfactory Hydration Satisfactory - No signs of dehydration Vitals Value Taken Time Temp 37 C (98.6 F) 06/20/2019 4:00 Pulse 104 06/20/2019 4:00 Resp 14 06/20/2019 4:00 BP 120/86 06/20/2019 4:00 Arterial Line BP Arterial Line BP 2 SpO2 97 % 06/20/2019 4:00 Electronically signed by Tony Molina MD 06/20/2019 5:21 [facility] 5: 22 AM PDTAnesthesia Procedure Notes - Ha Herrmann CRNA - 06/19/2019 9:49 AM PDTAssociated Order(s): PIV Intravenous Line Placement 06/19/2019 9:30 Indication: routine Preparation: alcohol patient was: under GA Side: left Orientation: distal Vein location: wrist Size: 18 g Localization technique: landmark Securement: transparent dressing Placed by: Ha Herrmann CRNA Please see intraoperative grid for any additional medication documentation. [place] Procedure Notes - Ha Herrmann CRNA - 06/19/2019 9:48 AM PDTAssociated Or francia(s): AirwayAnesthesia Airway Placement 06/19/2019 9:13 Preprocedure check: patient identified, oxygen, airway assessed, suction, airway equipment checked and patient reassessment prior to induction Rapid Sequence Induction: yes Mask ventilation: N/A Successful technique: videoscope Laryngoscope blade size: 3 Airway grade: 1 (Full view of glottis) Other equipment: stylette Attempts: 1 Airway type: endotracheal Size: 8 Cuffed: cuffed Route, reference point: teeth/lips Tube depth: 24 cm Tube secured with: adhesive tape Trauma: none Tube placement verification: bilateral chest rise, equal bilateral breath sounds, carbon di oxide detection and video laryngoscope Performing provider: Ha Herrmann CRNA Please see intraoperative grid for any additional medication documentation. [place] Preprocedure Evaluation - Tony Molina MD - 06/19/2019 8:15 AM PDT ANESTHESIA [facility]ANESTHESIA EVALUATION [facility] 58 y.[facility] male 1960 [id number] Procedure(s): ORIF ULNA FRACTURE (Right Arm Lower) Review of Systems / Med History Cardiovascular Denies cp/sob or swift. , Exercise tolerance >4 METS. Pulmonary (-) tobacco use. Gastrointestinal/Hepatic (+) alcohol problem. (-) acid reflux. 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 Collar remains on. (+) CVA, chronic pain. Psychology (+) substance abuse and alcohol. Physical Exam Airway MP III, TM >3 FB, Neck: limited ROM, Dental Grossly normal except where noted below.; CV Rhythm regular. Rate normal. Pulm Clear to auscultation bilaterally. Anesthesia Plan ASA 3 Type: General. Induction: Intravenous. Potential problems: Monitors: Standard ASA monitors. Consent statement:Anesthetic plan, alternatives, risks and benefits discussed with patient. blood transfusion, drug reaction, ICU placement, nausea, post-op intubation, sore throat. Consenting person understands and agrees to proceed . Electronically Signed by: Tony Molina MD ESig date/time: 06/19/2019 8:15 documented in this enc ounter Miscellaneous Notes Anesthesia Post-op Handoff - Ha Herrmann CRNA - 06/19/2019 10:37 AM PDTForm atting of this note might be different from the original. ANESTHESIA HANDOFF NOTE Tony Sánchez 58 y.o. male 1960 [id number] ORIF ULNA FRACTURE (Right Arm Lower) HANDOFF NOTE Handoff Protocol Used: post-procedure handoff checklist completed The following were completed during the transfer of care: 1. Identification of patient 2. Identification of responsible practitioner (primary service) 3. Discussion of pertinent medical history 4. Discussion of the surgical/procedure course (procedure, reason for surgery, procedure pe rformed) 5. Intraoperative anesthetic management and issues/concerns 6. Expectations/plans for the early post-procedure period 7. Opportunity for questions and acknowledgement of understanding of report from receiving team Patient Location: Phase I Condition: alert, awake and responds to stimuli Airway/O2: nasal cannula with O2 Multimodal analgesia: multimodal analgesia used between 6 hours prior to anesthesia start t o PACU discharge The significant anesthesia concerns and VS in Epic were reviewed with the receiving team. Ha Herrmann CRNA 06/19/2019 10:37 [facility] documented in this encounter Plan of Treatment [...] detection and video | | laryngoscopePerforming provider: Mara Delaney see | | intraoperative grid for any [...]
--- OUTSIDE RECORDS SUMMARY | ~2020-03-25 | XMS | Encounter Summary ---
Demographics + + + | Address | [address] | | | [place] [address] | + + + | Home Phone | | + + + | Preferred Language | Unknown | + + + | Marital Status | | + + + | Buddhism Affiliation | Unknown | + + + | Race | Unknown | + + + | Ethnic Group | Unknown | + + + Author + + + | Author | [facility] | | | and Olegarioana | + + + | Organization | [facility] | | | [...] Team Providers + +------+ + | Care Career Services Coordinator Name | Role | Phone | + +------+ + | Poornima Ny | PCP | | + +------+ + Encounter Details +--------+ + + + + | Date | Type | Department | Care Team | Description | +--------+ + + + + | 10/11/ | Abstract | [facility] | Provider, | | | 2019 | | NEUROSURGERY [address] | [address] | | | | | [address] | Igor FOREMAN | | | | | [place] | [place] [address] | | | | | [address] | | | | | | [phone] | | | +--------+ + + + + Social History + + + +--------+ + | Tobacco Use | Types | Packs/Day | Years | Date | | | | | Used | | + + + +--------+ + | Former Smoker | Cigarettes | 1 | | Quit: 03/2015 | + + + +--------+ + + +---+---+---+ | Smokeless Tobacco: | | | | | Never Used | | | | + +---+---+---+ + + +---------+ + | Alcohol Use | Drinks/Week | oz/Week | Comments | + + +---------+ + | No | | | Several large malt | | | | | beers daily when he | | | | | binge drinks but has | | | | [...]
--- OUTSIDE RECORDS SUMMARY | ~2020-03-25 | XMS | Encounter Summary ---
Demographics + + + | Address | [address] | | | [place] [address] | + + + | Home Phone | | + + + | Preferred Language | Unknown | + + + | Marital Status | Single | + + + | Jain Affiliation | Unknown | + + + | Race | White | + + + | Ethnic Group | Not or | + + + Author + + + | Author | [facility] | + + + | Organization | [facility] | + + + | Address [...] Team Providers + +------+ + | Care Wreath Maker Name | Role | Phone | + +------+ + PCP | Unavailable | + +------+ + Encounter Details +--------+ + + + + | Date | Type | Department | Care Team | Description | +--------+ + + + + | 02/17/ | Results | [facility] at | [place], | | | 2002 | Only | [facility] [address] | MD [address] | | | | | [address] | | | | | | Mailcode: [id number] | | | | | | [facility] | | | | | | [place], [place] | | | | | | [address] | | | | | | [phone] | | | +--------+ + + + [...]
--- OUTSIDE RECORDS SUMMARY | ~2020-03-25 | XMS | Encounter Summary ---
Demographics + + + | Address | [address] | | | [place] [address] | + + + | Home Phone | | + + + | Preferred Language | Unknown | + + + | Marital Status | | + + + | Voodoo Affiliation [...] Team Providers + +------+ + | Care Psych Social Worker Name | Role | Phone | [...] + + + + | 11/30/ | Anesthesia | [facility] | Marco Antonio Penn | | | 2020 | Event | MED CTR MRI [address] | [address] | | | | | [place], | [place] | | | | | [place] [address] | [place] [address] | | | | | [phone] | [phone] | | | | | | | | +--------+ + + + + Anesthesia Record + + + + + | Procedure Name | Responsible | Anesthesia Start | Anesthesia Stop Time | | | Anesthesiologist | Time | | + + + + + | MRI LUMBAR SPINE WO | Marco Antonio Hanna | 12/01/19 1145 | 12/01/19 1246 | | CONTRAST | DO Fili | | | + + + + + +----+---+ + + | Da | T | Event | Comment | | te | i | | | | | m | | | | | e | | | +----+---+ + + | 03 | 1 | | | | /1 | 1 | | | | 3/ | 4 | | | | 20 | 0 | | | | 20 | | | | +----+---+ + + | | 1 | An Checkout | Pre-use anesthesia machine/equipment checkout. | | | 1 | | | | | 4 | | | | | 0 | | | +----+---+ + + | | 1 | An Start | Reassessment prior to anesthesia induction/procedure. | | | 1 | | | | | 4 | | | | | 5 | | | +----+---+ + + | | 1 | An Start | | | | 1 | Data | | | | 4 | | | | | 5 | | | +----+---+ + + | | 1 | Preoxygenat | | | | 1 | ed | | | | 4 | | | | | 8 | | | +----+---+ + + | | 1 | An | | | | 1 | Induction | | | | 5 | | | | | 1 | | | +----+---+ + + | | 1 | An | | | | 1 | Intubation | | | | 5 | | | | | 2 | | | +----+---+ + + | | 1 | Anesthesia | | | | 1 | Ready | | | | 5 | | | | | 3 | | | +----+---+ + + | | 1 | First | | | | 2 | Inc/Proc St | | | | 0 | | | | | 0 | | | +----+---+ + + | | 1 | Oropharynx | | | | 2 | Suctioned | | | | 3 | | | | | 7 | | | +----+---+ + + | | 1 | Extubation/ | | | | 2 | Airway LDA | | | | 3 | Removal | | | | 7 | | | +----+---+ + + | | 1 | an stop | | | | 2 | data | | | | 3 | | | | | 9 | | | +----+---+ + + | | 1 | An Stop | Patient handed off to recovery nurse. | | | 4 | | | | | 6 | | | +----+---+ + + +------+ | Meds | +------+ + +--------+ | Name | Total | + +--------+ | lidocaine 2% | 100 mg | + +--------+ | propofol | 200 mg | + +--------+ | ePHEDrine (AKOVAZ) injection 50 | 15 mg | | mg/mL | | + +--------+ | lactated ringers (LR) infusion | 800 mL | + +--------+ +---------+ | Name | +---------+ | Insp O2 | +---------+ | Exp SEV | +---------+ + + | No blood administrations on file. | + + +--------+ + + + | Type | Details | Placement | Removal | +--------+ + + + | Periph | 06/19/19; 929 (created via | 06/19/19929 by | 12/01/191136 by | | nabeel | procedure documentation); Left; | Ha Herrmann [...] Frye RN | +--------+ + + + | Brace/ | 06/22/19; 0800; TLSO (thoracic | 06/22/19 0800 by | 12/01/19 1138 by | | Orthot | lumbar sacral orthosis); upper; | Michelle Warner RN | Christiane Frye RN | | ic/Ort | on when HOB> 30 degrees; | | | | hosis | 12/01/19; 1138 | | | +--------+ + + + | Periph | 12/01/19; 1139; Right; Forearm; | 12/01/19 1139 by | 12/01/19 1330 by | | eral | [id number] catheter system; | Christiane Frye RN | Lopez Castrejon RN | | IV | 20 gauge; distraction, | | | | | intradermal injection; short term | | | | | use; 12/01/19; 1330 | | | +--------+ + + + | Airway | Placement Date: 12/01/19; | 12/01/19 1152 by | 12/01/19 1237 by | | | Placement Time: 1152 (created via | Marco Antonio Hanna | Marco Antonio Hanna | | | procedure documentation); | Fili, | DO Fili | | | Attempts: 1; Airway Type: | | | | | laryngeal mask; Size: 5; Trauma: | | | | | none; Placement Check: exhaled | | | | | CO2 detection device, bilateral | | | | | chest rise, breath sounds equal | | | | | bilaterally; Removal Date: | | | | | 12/01/19; Removal Time: 1237 | | | +--------+ + + + documented in this encounter Social History + + + +--------+------+ | [...] encounter OR Notes Anesthesia Postprocedure Evaluation - Marco Antonio Penn DO - 12/01/2019 1:56 PM PDTFo rmatting of this note might be different from the original. ANESTHESIA POSTANESTHESIA EVALUATION Tony Sánchez 58 y.o. male 1960 [id number] Procedure(s) MRI LUMBAR SPINE WO CONTRAST Cooperates? Yes Mental Status Performs simple tasks. Respiratory Satisfactory - Airway patent (self maintained). Cardiovascular Satisfactory - Blood pressure and heart rate acceptable Temperature Satisfactory Pain Satisfactory N/V Control Satisfactory Hydration Satisfactory - No signs of dehydration Adverse Events ADVERSE EVENTS: No adverse events Vitals Value Taken Time Temp 36.3 C (97.3 F) 12/01/2019 12:42 PM Pulse 70 12/01/2019 12:42 PM Resp 16 12/01/2019 12:42 PM BP 119/71 12/01/2019 12:42 PM Arterial Line BP Arterial Line BP 2 SpO2 98 % 12/01/2019 12:42 PM Electronically signed by Marco Antonio Penn DO 12/01/2019 1:56 PM [facility] Marco [facility] Penn DO a t 12/01/2019 1:56 PM PDTAnesthesia Procedure Notes - Marco Antonio Penn DO - 12/01/2019 12:05 PM PDTAssociated Order(s): AirwayAnesthesia Airway Placement 12/01/2019 11:52 AM Preprocedure check: patient identified, suction, oxygen, patient reassessment prior to zachary ction, airway assessed and airway equipment checked Attempts: 1 Airway type: laryngeal mask Size: 5 Tube secured with: adhesive tape Trauma: none Tube placement verification: bilateral chest rise, equal bilateral breath sounds and carbon dioxide detection Performing provider: Marco Antonio Penn DO Authorizing provider: Marco Antonio Penn DO Please see intraoperative grid for any additional medication documentation. nesthesia Prep rocedure Evaluation - Marco Antonio Penn DO - 11/30/2019 8:59 PM PDT ANESTHESIA PREANESTHESIA EVALUATION Tony Sánchez 58 y.o. male 1960 [id number] Procedure(s): MRI LUMBAR SPINE WO CONTRAST Medical,anesthesia, drug, allergy histories reviewed, NPO status verified. ECG reviewed. Labs reviewed. Review of Systems / Med History Anesthesia History (-) PONV, difficult intubation, malignant hyperthermia . Cardiovascular Last EKG: Results for orders placed or performed during the hospital encounter of 06/18/19 -ECG 12 lead Narrative HEART RATE:93 bpm RR Interval:645 ms Atrial Rate:94 ms P-R Interval:144 ms P Duration:148 ms P Horizontal Beason:21 deg P Front Beason:46 deg Q Onset:508 ms QRSD Interval:128 ms QT Interval:356 ms QTcB:443 ms QTcF:412 ms QRS Horizontal Beason:88 deg QRS Beason:-25 deg I-40 Horizontal Beason:53 deg I-40 Front Beason:8 deg T-40 Horizontal Beason: deg T-40 Front Beason:178 deg T Horizontal Beason:28 deg T Wave Beason:14 deg S-T Horizontal Beason:25 deg S-T Front Beason:19 deg Severity:- ABNORMAL ECG - INTERP:SINUS RHYTHM INTERP:RIGHT BUNDLE BRANCH BLOCK Electronically signed by: LARRY IQBAL 06-19-2019 08:30:08 ECHO: Result Impression 1. This was a technically difficult study with suboptimal views. 2. Overall left ventricular systolic function is normal with, an EF between 65 - 70 %. 3. Left ventricular wall thickness is normal. 4. The right ventricle is moderately enlarged measuring between 3.8 - 4.1 cm.. (-) hyperten alem (+) congestive heart failure (Hx of etoh cardiomyopathy). (-) coronary artery disease. . Pulmonary (-) shortness of breath, recent URI, Chronic Obstructive Pulmonary Disease.(-) sleep apnea. (-) asthma. Gastrointestinal/Hepatic (+) hiatal hernia, alcohol problem. (-) hypercholesterolemia. (-) acid reflux. (+) cirrhosis and alcoholic liver disease. Renal (-) chronic renal insufficiency. Endocrine (+) hypothyroidism. (+) obesity: (+) Diabetes: Hematology/Other (+) anemia. Neuromuscular (+) history of headaches, CVA (balance issues), chronic pain. (-) neuromuscular disease. (+) seizures: Psychology (+) substance abuse, alcohol. Physical Exam Airway MP II, TM >3 FB, Mouth opening >2 FB. Neck: full ROM, extends >30 degrees. Jaw protrus ion normal. CV cardiovascular normal Rhythm regular. Rate normal. Pulm Clear to auscultation bilaterally. Neuro grossly normal. Anesthesia Plan ASA: 3 (Cirrhosis, seizures, CVA) Type: General. Induction: Intravenous. Potential problems: None anticipated. Monitors: Standard ASA monitors. Postop Pain Management: Consent statement: Anesthetic plan, alternatives, risks and benefits discussed with patient. drug reaction, he art problems, muscle aches, nausea, pain, perioperative CV events, respiratory events, sore throat, stroke, delirium Consenting person understands and agrees to proceed. PARQ. Electronically Signed by: Marco Antonio Penn DO ESig date/time: 11/30/2019 8:59 PM documented in t his encounter Miscellaneous Notes Anesthesia Post-op Handoff - Marco Antonio Penn DO - 12/01/2019 12:45 PM PDT ANESTHESIA HANDOFF NOTE Tony Sánchez 58 y.o. male 1960 [id number] MRI LUMBAR SPINE WO CONTRAST HANDOFF NOTE Handoff Protocol Used: post-procedure handoff [...] receiving team Patient Location: Phase I Condition: sedated Airway/O2: other (see comments) Multimodal analgesia: multimodal analgesia used between 6 hours prior to anesthesia start t o PACU discharge Comments: Supplemental Oxygen used as necessary to maintain Oxygen Saturation at or above 9 2% The significant anesthesia concerns and VS in Epic were reviewed with the receiving team. Marco Antonio Penn DO 12/01/2019 12:45 PM [facility] Marco Antonio Penn DO a t 12/01/2019 12:45 PM PDTdocumented in this encounter Plan of Treatment Not on filedocumented as of this encounter Procedures + +--------+ + + + | Procedure Name | Priori | Date/Time | Associated Diagnosis | Comments | | | ty | | | | + +--------+ + + + | ANE AIRWAY NOTE | Routin | 12/01/2019 | | Results for this | | | e | 12:05 PM | | procedure are in the | | | | PDT | | results section. | + +--------+ + + + documented in this encounter Results Airway (12/01/2019 12:05 PM PDT) + + + | Narrative | Performed At | + + + | Marco Antonio Penn DO 12/01/2019 12:05 PM Anesthesia Airway | | | Placement 12/01/2019 11:52 AM Preprocedure check: patient | | | identified, suction, oxygen, patient reassessment prior to | | | induction, airway assessed and airway equipment checked Attempts: 1 | | | Airway type: laryngeal mask Size: 5 Tube secured with: adhesive | | | tape Trauma: none Tube placement verification: bilateral chest rise, | | | equal bilateral breath sounds and carbon dioxide detection | | | Performing provider: Marco Antonio Penn DO Authorizing provider: | | | Marco Antonio Penn DO Please see intraoperative grid for | | | any additional medication documentation. | | + + + documented in this encounter Visit Diagnoses Not on filedocumented in this encounter Administered Medications + +--------+ +-------+------+------+ | Medication Order | MAR | Action | Dose | Rate | Site | | | Action | Date | | | | + +--------+ +-------+------+------+ | ePHEDrine (GUILLE) 50 mg/mL | Given | 12/01/19 | 15 mg | | | | injection Intravenous, PRN, | | 20 12:20 | | | | | Starting Wed12/01/19 at 1220, | | PM PDT | | | | | Anesthesia Intra-op | | | | | | + +--------+ +-------+------+------+ +---+---+ | | | +---+---+ + +---------+ +---+---+---+ | lactated ringers (LR) infusion | New Bag | 12/01/19 | | | | | at 10-100 mL/hr, Intravenous, | | 20 11:30 | | | | | CONTINUOUS, Starting Wed12/01/19 | | AM PDT | | | | | at 1145, TKO., Pre-op | | | | | | + +---------+ +---+---+---+ +---+---+ | | | +---+---+ + +-------+ +--------+---+---+ | lidocaine (PF) 2% injection | Given | 03/13/20 | 100 mg | | | | Intravenous, PRN, Starting Fri | | 20 11:51 | | | | | 12/01/19 at 1151, Anesthesia | | AM PDT | | | | | Intra-op | | | | | | + +-------+ +--------+---+---+ +---+---+ | | | +---+---+ + +-------+ +--------+---+---+ | propofol (DIPRIVAN) injection | Given | 12/01/19 | 200 mg | | | | Intravenous, PRN, Starting Fri | | 20 11:51 | | | | | 12/01/19 at 1151, Anesthesia | | AM PDT | | | | | Intra-op | | | | | | + +-------+ +--------+---+---+ +---+---+ | | | +---+---+ documented in this encounter"
--- OUTSIDE RECORDS SUMMARY | ~2020-03-25 | XMS | Encounter Summary ---
Demographics + + + | Address | [address] | | | [place] [address] | + + + | Home Phone | | + + + | Preferred Language | Unknown | + + + | Marital Status | Single | + + + | Congregation Affiliation [...] Team Providers + +------+ + | Care Assistant Branch Operations Manager Name | Role | Phone | + +------+ + | Anny Ennis DO | PCP | Unavailable | + +------+ + Encounter Details +--------+------+ + + + | Date | Type | Department | Care Team | Description | +--------+------+ + + + | 03/13/ | Lab | Laboratory at [facility] | | Cirrhosis (HCC) | | 2009 | | [address] | | | | | | [place], [place] | | | | | | [address] | | | | | | [phone] | | | +--------+------+ + + + [...] [facility] | [facility] | | [place] [address] | LABORATORY | | [place] [address] | | + + + + + + + + | Performing | Address | City/State/Zipcode | Phone Number | | Organization | | | | + + + + + | [facility] | [address] | [place] [address] | | | LABORATORY | | | [...] | LABORATORY | | | | at [facility], | | | | | | [place], [place]. | | | | + + + + + + + + | Specimen | + + | Blood - Blood | + + + + + | Narrative | Performed At | + + + | [facility] | [facility] | | [place] [address] | REGIONAL | | [place] [address] | LABORATORY | + + + + + + + + | Performing | Address | City/State/Zipcode | Phone Number | | Organization | | | | + + + + + | [facility] | [address] | [place] [address] | | | LABORATORY | | | [...] | | | | | validated by [facility]. | | | | | | Test performed by: | | | | | | [facility] | | | | | | Services [address] | | | | | | [place] | | | | | | [address] | | | | + + + + + + + + | Specimen | + + | Urine - Urine | + + + + + + + | Performing | Address | City/State/Zipcode | Phone Number | | Organization | | | | + + + + + | [facility] | [address] | [place], [place] | | | [facility] | | [address] | | + + + + + [...] [facility] | | [place] [address] | REGIONAL | | [place] [address] | LABORATORY | + + + + + + + + | Performing | Address | City/State/Zipcode | Phone Number | | Organization | | | | + + + + + | [facility] | [address] | [place] [address] | | | LABORATORY | | | [...] At | + + + | [facility]) Daryn | [place] | | [place] [address] | REGIONAL | | [place] [address] | LABORATORY | + + + + + + + + | Performing | Address | City/State/Zipcode | Phone Number | | Organization | | | | + + + + + | [facility] | [address] | [place] [address] | | | LABORATORY | | | [...] At | + + + | [facility] | [facility] | | [place] [address] | REGIONAL | | [place] [address] | LABORATORY | + + + + + + + + | Performing | Address | City/State/Zipcode | Phone Number | | Organization | | | | + + + + + | [facility] | [address] | [place] [address] | | | LABORATORY | | | [...] by | | | | | | [employer], | | | | | | | | | | | | [address] | | | | | | [place] [address] | | | | | | [phone] | | | | | | | | | | | | [email or web address], | | | | | | [employer] [...] [facility] | [address] | [place], [place] | | | [facility] | | [address] | | + + + + + [...] At | + + + | [facility] ([facility]) Daryn | [facility] | | [facility] [address] | DEPARTMENT OF | | [place] [address] | PATHOLOGY | + + + + + + + + | Performing | Address | City/State/Zipcode | Phone Number | | Organization | | | | + + + + + | [facility] DEPARTMENT OF | [address] | [place] [address] | | | PATHOLOGY | [address] [...] | + + + + + | [facility] DEPARTMENT OF | [address] | [place] [address] | | | PATHOLOGY | [address] | | | + + + + + INR (03/13/2010 9:50 AM PDT) + + + + + + | Component | Value | Ref Range | Performed | Pathologist | | | | | At | Signature | + + + + + + | INR | 1.19Comment: | 0.90 - 1.20 INR | [facility] | | | | INR Therapeutic ranges [...] | + + + + + | [facility] DEPARTMENT OF | [address] | [place] [address] | | | PATHOLOGY | [address] [...] | | | DEPARTMENT | | | [place] | | | OF | | | [...] | + + + + + | [facility] | [address] | [place] [address] | | | PATHOLOGY | [address] | | | + + + + + documented in this encounter Visit Diagnoses + + | Diagnosis | + + | 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
--- OUTSIDE RECORDS SUMMARY | ~2020-03-25 | XMS | Encounter Summary ---
Demographics + + + | Address | [address] | | | [place] [address] | + + + | Home Phone | | + + + | Preferred Language | Unknown | + + + | Marital Status | Single | + + + | Mormon Affiliation | Unknown | + + + | Race | White | + + + | Ethnic Group | Not or | + + + Author + + + | Author | [facility] | + + + | Organization | [facility] | + + + | Address [...] Providers + +------+ + | Care Manager Recruitment Name | Role | Phone | + +------+ + PCP | Unavailable | + +------+ + Encounter Details +--------+ + + + + | Date | Type | Department | Care Team | Description | +--------+ + + + + | 12/27/ | Abstract | [facility] | Azeem Dietrich | | | 2011 | | [place] [address] [address] | | | | [address] | [place], [place] | | | | | Mailcode: [id number] | [address] | | | | | [facility] | [phone] | | | | | and [address], | | | | | | [address] | | | | | | [place], [place] | | | | | | [address] | | | | | | [phone] | | | +--------+ + + + [...]
--- OUTSIDE RECORDS SUMMARY | ~2020-03-25 | XMS | Encounter Summary ---
Demographics + + + | Address | [address] | | | [place] [address] | + + + | Home Phone | | + + + | Preferred Language | Unknown | + + + | Marital Status | | + + + | Nondenominational Affiliation | Unknown | + + + | Race | Unknown | + + + | Ethnic Group | Unknown | + + + Author + + + | Author | [facility] | | | and [place]leg[place] | + + + | Organization | [facility] | | [...] Team Providers + +------+ + | Care High Climber Name | Role | Phone | + +------+ + PCP | Unavailable | + +------+ + Encounter Details +--------+ + + + + | Date | Type | Department | Care Team | Description | +--------+ + + + + | 11/22/ | Hospital | [facility] | Conversion | Headache(784.0) | | 2015 | Encounter | CONVERSION [address] | Transaction, | | | | | [address] | Provider Unknown | | | | | [place], [place] | | | | | | [address] | (Fax) | | | | | | | [...]
--- OUTSIDE RECORDS SUMMARY | ~2020-03-25 | XMS | Encounter Summary ---
Demographics + + + | Address | [address] | | | [place] [address] | + + + | Home Phone [...] + + + | Author | [facility] | + + + | Organization | [facility] | + + + | [...] Team Providers + +------+ + | Care Edge Dyer Name | Role | Phone | [...]
--- OUTSIDE RECORDS SUMMARY | ~2020-03-25 | XMS | Encounter Summary ---
Demographics + + + | Address | [address] | | | [place] [address] | + + + | Home Phone [...] Author + + + | Author | [facility] | + + + | Organization | [facility] | + + + [...] Team Providers + +------+ + | Care Corn Press Operator Name | Role | Phone | + +------+ + PCP | Unavailable | + +------+ + Encounter Details +--------+ + + + + | Date | Type | Department | Care Team | Description | +--------+ + + + + | 02/17/ | Results | [facility] | Wade Villalta MD | | | 2002 | Only | & Rehabilitation | [address] | | | | | [address] | [address] | | | | | Mailcode: [id number] | [place], [place] | | | | | Brian | [address] | | | | | [place], [place] | [phone] | | | | | [address] | | | | | | [phone] | | | +--------+ + + + [...] | | + +---------+ + + | [facility] | | | | | RADIOLOGY | | | | + +---------+ + + documented in this encounter Visit Diagnoses Not on filedocumented in this encounter"
--- OUTSIDE RECORDS SUMMARY | ~2020-03-25 | XMS | Encounter Summary ---
Demographics + + + | Address | [address] | | | [place] [address] | + + + | Home Phone | | + + + | Preferred Language | Unknown | + + + | Marital Status | Single | + + + | Buddhism Affiliation | Unknown | + + + | Race | White | + + + | Ethnic Group | Not or | + + + Author + + + | Author | [facility] | + + + | Organization | [facility] | + + + | [...] Team Providers + +------+ + | Care Pin Sorter And Bagger Name | Role | Phone | + [...] + + | 09/23/ | Emergency | [facility] Emergency | | | | 2009 | | Department [address] | | | | | | [address] | | | | | | [facility] | | | | | | [place], [place] | | | | | | [address] | | | | | | [phone] | | | +--------+ + + + [...]
--- OUTSIDE RECORDS SUMMARY | ~2020-03-25 | XMS | Encounter Summary ---
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 Dr. Chong was not available for the surgery, secondary to a mi litary commitment, and I did see the patient in follow-up. The patient was then admitted to the [facility] on 05/28/2015 for an elective right-sided cranioplasty. [...] the patient was transferred back to his alf, [facility] in [facility] on 06/03/2015 Past Medical History Diagnosis Date Alcohol abuse Frequent falls Drug abuse Seizures (HCC) Other chronic pain Depression Skin abscess Anemia Hemiparesis (HCC) Past Surgical History Procedure Laterality Date Craniotomy Right 10/11/2014 Procedure: CRANIOTOMY - FOR BLEED; Surgeon: Anthony Chong MD; Location: [facility] IN OR; Service: Neurosurgery; Laterality: Right; Craniectomy Right 10/11/2014 Procedure: CRANIECTOMY; Surgeon: Anthony Chong MD; Location: [facility] OR; Ser vice: Neurosurgery; Laterality: Right; Cranial flap replacement Right 05/28/2015 Procedure: CRANIAL - FLAP REPLACEMENT; Surgeon: Livier Betancur MD; Location: [facility] OR; Service: Neurosurgery; Laterality: Right; Cranioplasty for cranial defect Right 05/29/2015 Procedure: CRANIOPLASTY; Surgeon: Livier Betancur MD; Location: [facility]; Service: Neurosurgery; Laterality: Right; Allergies Allergen Reactions [...] PLAN The patient was discharged to his alf, [facility], in [facility]. The patient was asked to return to the clinic in 2 weeks for removal of the right-sided sca lp diamond. 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 Follow up: Livier Betancur MD [address] [place] [address] In [address] 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 You may get the following medications [...] Josseline Mera RN Service: (none) Author Type: Gis Web Developer Filed: 06/03/15 1408 Date of Service: 06/03/151406 Status: Signed Psychologist Developmental: Josseline Mera RN (Gis Web Developer) Disposition: [facility] in [place] Transportation: D Map through [employer]. All orders, signed AVS, and prescriptions have been faxed All DC paperwork completed Patient and family in agreement with discharge plan Josseline Mera onver alem Transaction, Provider Unknown - 06/03/2015 12:21 PM PDT Nurse Progress Note by Shannon Nguyen RN at 06/03/15 1221 Author: Shannon Nguyen RN Service: (none) Author Type: Registered Nurse Filed: 06/03/15 1227 Date of Service: 06/03/15 1221 Status: Signed Psychologist Developmental: Shannon Nguyen RN (Registered Nurse) Pt discharged back to [facility] in [place]. Paperwork previously faxed. IV removed, landy bernardo with transport, talha in place. Left message for mother, notifying her of D/C. No c oncerns. SHANNON Nguyen RN onver alem Transaction, Provider Unknown - 06/03/2015 11:14 AM PDT Therapy Progress Note by Yazan Main PTA at 06/03/15 1114 Author: Yazan Main PTA Service: (none) Author Type: Dinkey Engine Firer Filed: 06/03/15 1122 Date of Service: 06/03/151113 Status: Signed Psychologist Developmental: Yazan Main PTA (Dinkey Engine Firer) 06/03/15 1114 PT Last Visit PT Received [...] Distance limited by? 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 Juhi Abel MA, CCC-TIER OVER - 06/03/2015 9:07 AM PDTFormatting of this note might be different fr om the original. Therapy Progress Note by Juhi Gregory MA CCC-TIER OVER at 06/03/15 09 Author: Juhi Gregory MA CCC-TIER OVER Service: (none) Author Type: Speech and Authorization Specialist ologist Filed: 06/03/15 09 Date of Service: 06/03/15906 Status: Signed Psychologist Developmental: Juhi Gregory MA CCC-TIER OVER (Speech and Language Pathologist) 06/03/15 0850 Swallowing Assessment Eval Swallowing Treatment Yes Thin Presentation Cup Oral Phase Thin WFL Pharyngeal Phase Cough - delayed [place] Presentation Cup Oral WFL Pharyngeal Phase Delayed swallow initiated Puree Presentation Spoon Oral Phase WFL Pharyngeal Delayed Swallow Recommendations Liquids Consistency Recommendations [place] thick Diet Consistency Recommendation Pureed Recommendations Dysphagia treatment;Feeding assist;Set up with meals;Check on patients freq uently throught out meals Risk for Aspiration Moderate Compensatory Swallowing Strategies Upright as possible for all oral intake;Remain upright f or 30 minutes after meals;Slow rate presentation;Small bites/sips;Eat/feed slowly Recommended Form of Meds Meds floated in puree Summary pt eating breakfast with RN in room when TIER OVER entered. pt with delayed swallow but no [...] Josseline Mera RN Service: (none) Author Type: Gis Web Developer Filed: 06/03/1508 Date of Service: 06/03/15906 Status: Signed Psychologist Developmental: Josseline Mera RN (Gis Web Developer) [facility] will accept Jimenez back when appropriate. Paperwork on front of chart f or MD signature. Ken Rivera MD - 06/02/2015 10:55 AM PDT Progress Notes by Ken Foster MD at 06/02/15 1051 Author: Ken Foster MD Service: Neurosurgery Author Type: Physician Filed: 06/02/15 1059 Date of Service: 06/02/151054 Status: Signed Psychologist Developmental: Ken Foster MD (Physician) Subjective: POD#4 No new issues. He is doing well. Complains of minimal pain. YOSEF drain 20cc last shift so I removed it. EXAM: Filed Vitals: 06/02/15 0746 BP: 125/77 Pulse: 60 Temp: 97.7 F (36.5 C) Resp: 16 SpO2: The right sided scalp incision is clean, dry, and intact. YOESF drain removed. Follows commands. A/P: S/P right sided cranioplasty. Continue with therapies while here. Stable for return to his facility from my perspective when this can be arranged. onversion Transact ion, Provider Unknown - 06/01/2015 4:26 PM PDTFormatting of this note might be different fr om the original. Therapy Progress Note by Mere Hardy MA CCC-TIER OVER at 06/01/151625 Author: Mere Hardy MA CCC-TIER OVER Service: (none) Author Type: Speech and Language Patholo gist Filed: 06/01/151625 Date of Service: 06/01/151625 Status: Signed Psychologist Developmental: Mere Hardy MA CCC-TIER OVER (Speech and Language Pathologist) 06/01/15 1605 Swallowing Assessment Eval Swallowing Treatment Yes Initial Swallow Assessment Respiratory Status Room air Behavior/Cognition Cooperative;Alert;Confused;Impulsive;Distractible Dentition Adequate;Some missing teeth Vision Functional for self-feeding Patient Positioning Upright in bed Baseline Vocal Quality Weak Consistencies Consistencies Assessed Yes Thin Presentation Cup;Self Fed Oral Phase Thin WFL Pharyngeal Phase Delayed swallow initiated;Decreased laryngeal elevation upon palpation;Cou gh - delayed;Spontaneous multiple swallow [place] Presentation Cup;Self Fed Oral WFL Pharyngeal Phase No overt signs or symptoms of aspiration;Delayed swallow initiated;Decreas ed laryngeal elevation upon palpation Puree Presentation Self Fed;Spoon Oral Phase WFL Pharyngeal No overt signs or symptoms of aspiration;Delayed Swallow Dysphagia Mechanically Altered Presentation Spoon;Self Fed Oral Phase Prolonged mastication Pharyngeal Phase Cough - Immediate;Delayed Swallow;Decreased Laryngeal Elevation Recommendations Liquids Consistency Recommendations [place] thick Diet Consistency Recommendation Pureed Recommendations Dysphagia [...] monitoring;Patient/Family education; Assessment for upgrade Dysphagia Goals Coal Miner Goals Safe/efficient oral intake Pt will have safe/efficient oral intake [place] thick liquids;Dysphagia advanced diet;With max cues Short Term Goals Tolerate liquid consistency;Follow swallow precautions Pt will tolerate tolerate liquid consistency [place] thick liquids;With max supervision;Goa l progressing Pt will follow swallow precautions With mod supervision;Goal progressing onver alem Transaction, Provider Unknown - 06/01/2015 12:40 PM PDT Progress Notes by Fede Bonner at 06/01/15 1240 Author: Fede Bonner Service: (none) Author Type: Filed: 06/01/15 9212 Date of Service: 06/01/151239 Status: Signed Psychologist Developmental: Fede Jimenez (Chaplain) is from [place], but says he lives on the [facility]. Stated he has bee n in [...] 06/01/15909 Date of Service: 06/01/15907 Status: Signed Psychologist Developmental: Ken Foster MD (Physician) Subjective: POD#3 Transferred [...] could be returned to his care fac [facility] Wednesday or Wednesday. onversion Transact ion, Provider Unknown - 05/31/2015 12:04 PM PDTFormatting of this note might be different fr om the original. Progress Notes by Hany Templeton RD at 05/31/15 1204 Author: Hany Templeton RD Service: (none) Author Type: Registered Dietitian Filed: 05/31/151203 Date of Service: 05/31/151203 Status: Signed Psychologist Developmental: Hany Templeton RD (Registered Dietitian) 05/31/15 1143 Subjective Timepoint Admit (Triggers for dysphagia. ) Pt c/o Pt admitted for seizures, has hx of craniectiomy, is POD # 2R [id number] cranioplasty, POD # 1 R bone flap [...] dysphagia pureed, NT liquid, house diet per TIER OVER recommend ations. Add magic cups to meal [...] Date of Service: 05/31/15 1116 Status: Signed Psychologist Developmental: Ki Martinez PT (Physical Therapist) 05/31/15 1116 [...] Service: Neurosurgery Author Type: Physician Filed: 05/31/15 8309 Date of Service: 05/31/15917 Status: Signed Psychologist Developmental: Livier Betancur MD (Physician) POD#2 The patient [...] could be returned to his care fac [facility]. onversion Transactio n, Provider Unknown - 05/31/2015 8:55 AM PDT Case Management by TABITHA Sidhu at 05/31/15 0867 Author: TABITHA Sidhu Service: (none) Author Type: Strategic Marketing Leader Filed: 05/31/15 1438 Date of Service: 05/31/15854 Status: Addendum Psychologist Developmental: TABITHA Sidhu (Strategic Marketing Leader) Related Notes: Original Note by TABITHA Sidhu (Strategic Marketing Leader) filed at 05/31/15 0856 Placed t/c to [facility] at [facility]. Left message requesting a return call as i have no t heard from her since I faxed the referral. Await her return call. Addendum: 1400: Received return call from Debora at [facility]. Pt is accepted for a dmit when he is medically stable. abitha Shaver, PT - 05/30/2015 3:49 PM PDTFormatting of this note might be different from th joyce original. Therapy Progress Note by Keiry Weiss PT at 05/30/15 3426 Author: Keiry Weiss PT Service: (none) Author Type: Physical Therapist Filed: 05/30/15 1804 Date of Service: 05/30/15 742 Status: Signed Psychologist Developmental: Keiry Weiss PT (Physical Therapist) 05/30/15 1545 PT Last Visit PT Received On 05/30/15 [...] Pt had been most recently staying at [facility] in [place]. Pt was getti ng agitated with questions and not wanting to respond. Prior Function Level of [place] Assist with functional mobility;Assist with ADLs;Assist with IADLs (while at [facility], unclear functional mobility prior) Lives With Alone Receives Help From Family (silblings) Comments difficult to ascertain- pt reported spending most of his time in w/c at [facility] an d needing help with all [...] Barriers to Discharge Physical Deficits Impacting Functional [place];Self-care Deficit s Impacting Functional [place] 05/30/15 1549 PT Last Visit PT Received [...] Barriers to Discharge Physical Deficits Impacting Functional [place];Self-care Deficit s Impacting Functional [place] onversion Transa ction, Provider Unknown - 05/30/2015 3:10 PM PDT Therapy Progress Note by Carmela Wilcox MS CCC-TIER OVER at 05/30/15 1510 Author: Carmela Wilcox MS CCC-TIER OVER Service: (none) Author Type: Speech and Authorization Specialist ologist Filed: 05/30/15 4903 Date of Service: 05/30/15 151 Status: Signed Psychologist Developmental: Carmela Wilcox MS CCC-TIER OVER (Speech and Language Pathologist) 05/30/15 1500 Swallowing [...] Pharyngeal Phase Delayed swallow initiated;Cough - delayed [place] Presentation Cup;Self Fed Oral Increased Anterior to [...] Cough - Delayed Recommendations Liquids Consistency Recommendations [place] thick;Ice chips for oral comfort Diet Consistency [...] education;Assessment for upgr khadijah;Swallow strategies Dysphagia Goals Coal Miner Goals Safe/efficient oral intake Pt will have safe/efficient oral intake [place] thick liquids;Dysphagia advanced diet;With max cues Short Term Goals Tolerate liquid consistency;Follow swallow precautions Pt will tolerate tolerate liquid consistency [place] thick liquids;With max supervision Pt will follow swallow precautions With mod supervision;New/revised goal RDSteeLivier badillo - 05/30/2015 8:48 AM PDTFormatting of this note might be different from the or iginal. Progress Notes by Livier Betancur MD at 05/30/15847 Author: Livier Betancur MD Service: Neurosurgery Author Type: Physician Filed: 05/30/15 1230 Date of Service: 05/30/15847 Status: Signed Psychologist Developmental: Livier Betancur MD (Physician) POD#1 The patient [...] Mendoza at 05/30/15639 Author: JENNIFER Mendoza Service: Acoustic Sensor Operator Author Type: Nurse Practitioner Filed: 05/30/15 1123 Date of Service: 05/30/15639 Status: Signed Psychologist Developmental: JENNIFER Mendoza (Nurse Practitioner) [facility] Service: Acoustic Sensor Operator Progress Note [facility] 54 [facility] [...] 1422 Date of Service: 05/29/151420 Status: Signed Psychologist Developmental: Livier Betancur MD (Physician) ICU nurse states the patient seems more lethargic. I will plan a return to the OR now to e valuate the pressure present beneath the right-sided cranial flap. onversion Transactio n, Provider Unknown - 05/29/2015 1:24 PM PDT Case Management by TABITHA Sidhu at 05/29/15 1324 Author: TABITHA Sidhu Service: (none) Author Type: Strategic Marketing Leader Filed: 05/29/15 1328 Date of Service: 05/29/151323 Status: Signed Psychologist Developmental: TABITHA Sidhu (Strategic Marketing Leader) 05/29/15 1320 Discharge Planning Evaluation Admitting Diagnosis Right snftri-yfcudus-lhpakevc cranioplasty Readmission Other (comment) Living Arrangements Other (Comment) ([facility]) Support Systems Parent Type of Residence [facility] facility ([facility]) Independent with ADL's No-comment Independent with Mobility No-comment (require w/c) Home Care Services No Mental Status Other (comment) (just starting to follow commands after surgery) Prior functional status Previously at [facility] and [facility]. Stiill is at [facility] and mother states that plan is to retun there. Anticipated Discharge Plan Plan communicated to patient/family Yes Resources Financial concerns No Transportation issues No Patient/Family concerns No Prescription Plan Yes Anticipated Disposition Facility Type [facility] facility Long Term Facility Other (comment) ([facility]) Met with: pt's mother Teressa who tells me she is the healthcare decision-maker for pt and discussed discharge planning, Pt is a 54 y.o., male s/p cranioplasty. Pt has been at [facility] for the last 2-3 months per mother. Plan is for pt to live with his mother donal ut he requires significant care at this time. E-faxed referral to Dianna at [facility]. Patient's PCP is: [facility] Patient's insurance:[place] Medicaid - [place] Coverage concerns: Medication coverage/concerns: [employer]un[employer] Bedside Delivery: Community resources utilized / needed: Assistance in transportation: may need ambulance transfer back to [place] Identification of any specific education / training: Barriers to Discharge / Alternative housing needed: Anticipated DCP: Back to [facility]. Referral faxed to [facility]. HAYES STEEN Livier Briseno - 05/29/2015 12:37 PM PDTFormatting of this note might be different from the or iginal. Progress Notes by Livier Betancur MD at 05/29/15 1237 Author: Livier Betancur MD Service: Neurosurgery Author Type: Physician Filed: 05/31/15941 Date of Service: 05/29/151236 Status: Addendum Psychologist Developmental: Livier Betancur MD (Physician) Related Notes: Original [...] Galan Service: Wound/Ostomy Care Author Type: Nurse Chemical Dependency Therapist Filed: 05/29/15 1220 Date of Service: 05/29/159 Status: Signed Psychologist Developmental: Pelon Galan (Nurse Chemical Dependency Therapist) Patient seen today for low Bon score. [...] 05/29/151209 Date of Service: 05/29/151209 Status: Signed Psychologist Developmental: Debra Fitzpatrick RPH (Pharmacist) Renal Dosing Monitoring: [...] 1.30 mg/dL Final Comment: Testing performed at [facility], [address] [place] [address] Creatinine clearance cannot be calculated (Patient's most [...] Livier Betancur MD at 05/29/15953 Author: Livier Bteancur MD Service: Neurosurgery Author Type: Physician Filed: 05/29/15 1003 Date of Service: 05/29/15953 Status: Signed Psychologist Developmental: Livier Betancur MD (Physician) POD#1 The patient [...] 112 Date of Service: 05/28/151119 Status: Signed Psychologist Developmental: Joyce Swenson RPH (Pharmacist) Clinical Pharmacy Note: Renal Monitoring Tony Fortune 54 y.o. male Ht Readings from Last 1 Encounters: 05/28/15 1.778 m (5' 10") Wt Readings from Last 1 Encounters: 05/28/15 78.9 kg (173 lb 15.1 oz) CREATININE Date Value Ref Range Status 11/26/2014 0.62* 0.70 - 1.30 mg/dL Final Comment: Testing performed at [facility], [address] [place] [address] Creatinine clearance cannot be calculated (Patient's most [...] 1118 Date of Service: 05/28/151116 Status: Signed Psychologist Developmental: Anna Gates RN (Registered Nurse) Report from Shayna avelar [facility] states that patient has been [...] Date of Service: 05/28/15 104 Status: Signed Psychologist Developmental: Anna Gates RN (Registered Nurse) Lamine from the lab at [facility] to fax MRSA PCR results and U/A results. Anna Gates RN 05/28/2015, 10:42 AM docume nted in this encounter H&P Notes Livier Betancur - 05/28/2015 7:52 AM PDT H&P by Livier Betancur MD at 05/28/15 075 Author: Livier Betancur MD Service: Neurosurgery Author Type: Physician Filed: 05/28/15 0755 Date of Service: 05/28/15751 Status: Addendum Psychologist Developmental: Livier Betancur MD (Physician) Related Notes: Original Note by Livier Betancur MD (Physician) filed at 05/28/15 0757 CHIEF COMPLAINT: Mr. Tony Fortune is seen in consultation at the request of the Clinic, [facility] for evaluation for possibility of cranioplasty. HISTORY OF PRESENT ILLNESS: The patient is not accompanied by a family member or a jewelry sales representative from his care facilit y today. The patient is a 54 y.o. male with a history of alcohol abuse, who was found down and unresponsive on October 11, 2014. He was transferred to the [facility]. The patient was seen upon his presentation to the [facility] Emergency Department on 10/11/2014, by Dr. Eren [...] sent to the bone freezer storage in [place]. The patient was desean ntually discharged to [...] FOR BLEED; Surgeon: Anthony Chong MD; Location: [facility] MAIN OR; Service: Neurosurgery; Laterality: Right; Craniectomy Right 10/11/2014 Procedure: CRANIECTOMY; Surgeon: Anthony Chong MD; Location: [facility] MAIN OR; Servic e: Neurosurgery; [...] no hy drocephalus present. There is mild pxhuf-jl-eodm midline shift present secondary to the defo [...] 1800 Date of Service: 05/24/151756 Status: Signed Psychologist Developmental: Melissa Braich, RN (Registered Nurse) rec'd cxr [...] Date of Service: 05/24/15 1640 Status: Signed Psychologist Developmental: Melissa Alonzo RN (Registered Nurse) Called Dorcas at [facility] again, and requested labs and diagnostics [...] access to PAX images. Also, Lyndsay from [facility] stated she may not be able to get U A, because she does not have an order for straight cath. Relayed to Anisa at Dr Betancur[facility] of [facility]. onver alem Transaction, Provider Unknown - 05/24/2015 1:14 PM PDT Pre-Procedure Instructions by Melissa Alonzo RN at 05/24/15 1314 Author: Melissa Alonzo RN Service: (none) Author Type: Registered Nurse Filed: 05/24/15 1315 Date of Service: 05/24/15 1314 Status: Signed Psychologist Developmental: Melissa Alonzo RN (Registered Nurse) Called [facility] in [place] to follow up on ordered diagnostics. Dorcas, at [facility] y stated they were [...] Putnam at 05/29/151654 Author: JENNIFER Putnam Service: Acoustic Sensor Operator Author Type: Advanced Registered Nurse Practitioner Filed: 05/29/152111 Date of Service: 05/29/151654 Status: Addendum Psychologist Developmental: JENNIFER Putnam (Advanced Registered Nurse Practitioner) Related Notes: Original Note by JENNIFER Putnam (Advanced Registered Nurse Practition er) filed at 05/29/15 5388 [facility] Service: Acoustic Sensor Operator Initial Consult Note Tony Fortune 54 y.o. [...] FOR BLEED; Surgeon: Anthony Chong MD; Location: [facility] IN OR; Service: Neurosurgery; Laterality: Right; Craniectomy Right 10/11/2014 Procedure: CRANIECTOMY; Surgeon: Anthony Chong MD; Location: [facility] OR; Ser vice: Neurosurgery; Laterality: Right; Cranial flap replacement Right 05/28/2015 Procedure: CRANIAL - FLAP REPLACEMENT; Surgeon: Livier Betancur MD; Location: [facility] OR; Service: Neurosurgery; Laterality: Right; ALLERGIES Allergies [...] Code Status: Full Code Primary Care Physician: [facility] Thank you for allowing me to participate [...] 1023 Date of Service: 05/31/15941 Status: Signed Psychologist Developmental: Italia Lo RN (Registered Nurse) Gait belt [...] 05/31/15255 Date of Service: 05/31/15255 Status: Signed Psychologist Developmental: Soco Curry RN (Registered Nurse) Problem: Pain [...] 05/29/152304 Date of Service: 05/29/152299 Status: Signed Psychologist Developmental: Dolores Canada RN (Registered Nurse) Pt returned [...] Service: Neurosurgery Author Type: Physician Filed: 05/29/15 7979 Date of Service: 05/29/15 163 Status: Signed Psychologist Developmental: Livier Betancur MD (Physician) [facility] Service: Neurosurgery Operative Note Pre-operative Diagnosis: Right F-T-P EDH Post-operative Diagnosis: Same Procedure(s): Right bone flap elevation for EDH evacuation Surgeon: LIVIER BETANCUR MD Benefit Authorizer(s): None Anesthesia: General endotrachial anesthesia Estimated Blood [...] Filed: 05/30/15 0844 Date of Service: 05/29/15 8227 Status: Signed Psychologist Developmental: Livier Betancur MD (Physician) TONY FORTUNE Date of : 1960 DATE OF SERVICE May 29, 2015. PRE-OPERATIVE DIAGNOSIS Right ofzknb-nnzvozo-hsbyvwuu epidural hematoma/pneumocephalus. POST-OPERATIVE DIAGNOSIS Right bjzlyw-buzjgsv-xtcknpme epidural hematoma/pneumocephalus. PROCEDURE Elevation of right-sided bone flap for evacuation of epidural hematoma. 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 ANESTHESIA General endotracheal anesthesia. ESTIMATED BLOOD LOSS 100 mL. DISPOSITION To the ICU, intubated, in stable condition. DESCRIPTION OF PROCEDURE The patient is a 54-year-old male who underwent an uneventful cranioplasty yesterday, with placement of a large right-sided vchkmt-brlzcch-tocgrdyu bone flap. The patient was monitore d in the intensive care unit. His head CT the next morning demonstrated expected fluid and a moderate amount of hemorrhage in the epidural space, but there was unexpected significant r xsct-wn-dmkf midline shift. The patient initially was doing fairly well with his neurologic exam, but the patient did become more lethargic throughout the morning. He therefore was ret urned to the operative suite for evacuation of the epidural collection. The patient was brought to the operative suites at [facility] on the af ternoon of May 29, 2015. The patient was intubated by the anesthesiologist without diff iculty. The patient's head was turned to the left and cradled in a horseshoe head rigger. Th e scalp was cleansed briefly with [...] separate epidural drains were placed, consisting of 10-Polish round Mekhi drains, and e xited through [...] to the ICU in stable condition. P/ P/[id number] LIVIER BETANCUR MD lan of Care - Conver alem Transaction, Provider Unknown - 05/28/2015 9:58 PM PDT Plan of Care by Dolores Canada RN at 05/28/15 6570 Author: Dolores Canada RN Service: (none) Author Type: Registered Nurse Filed: 05/28/15 9447 Date of Service: 05/28/152157 Status: Signed Psychologist Developmental: Dolores Canada RN (Registered Nurse) Pt neuro [...] Date of Service: 05/28/15 150 Status: Signed Psychologist Developmental: Livier Betancur MD (Physician) LEVYALBERTREVOR ALONZOD Date of : 1960 DATE OF SERVICE May 28, 2015 PRE-OPERATIVE DIAGNOSIS Large right imqygs-nanpqay-wpvfpfmb cranial defect. POST-OPERATIVE DIAGNOSIS Large right zvegib-srgttia-dswpbhss cranial defect. PROCEDURE Right suftuo-aibgfqf-eucxzknw cranioplasty. 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 ANESTHESIA General endotracheal. ESTIMATED BLOOD LOSS [...] was brought to the operating suite at [facility] on the aft ernoon of May 28, 2015 where general endotracheal anesthesia was induced by the anesthe usman service without complications. Appropriate lines and a Daniels catheter were placed. The patient's head was turned to the right and cradled on a horseshoe head rigger. The hair was clipped extensively. The right scalp was prepped and draped in the standard sterile wagner gical fashion. A #10 blade scalpel was used to reincise the large trauma flap incision in th e right gzcmlz-dwophnu-qwtpsilt regions. Tamara scalp clips were applied to the skin edges to provide hemostasis. The scalp flap was carefully reflected anteriorly, and sharp dissection was used to free the musculocutaneous flap from the underlying dura/Duragen matrix. The ent thuan region was irrigated with a copious amount of sterile saline. The patient's [place] bone flap had been stored off-site in [...] to the ICU in stable condition. P/ P/[id number] LIVIER BETANCUR MD p Note - Jessy Betancur ra - 05/28/2015 2:50 PM PDTFormatting of this note might be different from the velasquez garsia Brief Op Note by Livier Betancur MD at 05/28/15 6172 Author: Livier Betancur MD Service: Neurosurgery Author Type: Physician Filed: 05/28/15 4012 Date of Service: 05/28/151449 Status: Signed Psychologist Developmental: Livier Betancur MD (Physician) [facility] Service: Neurosurgery Brief Op Note Pre-operative Diagnosis: Right cfshtl-kkgmfoh-mqtwuwat cranial defect Post-operative Diagnosis: Same Procedure(s): Right F-T-P cranioplasty Surgeon: LIVIER BETANCUR MD Benefit Authorizer(s): None Anesthesia: General endotrachial anesthesia Estimated Blood [...] EXTERNAL | | | | performed at [facility];[address] | mmol/L | LAB | | | | [address];[place] | | | | | | [address] | | | | + + + [...] EXTERNAL | | | | performed at [facility];[address] | | LAB | | | | [address];[place], [place] | | | | | | [address] | | | | + + + [...] EXTERNAL | | | | performed at [facility], [address] | K/uL | LAB | | | | [address], | | | | | | [place] [address] | | | | + + + + + + | Red Blood | 3.20 (L)Comment: Testing | 4.20 - 5.70 | EXTERNAL | | | Cells | performed at [facility], [address] | M/uL | LAB | | | Counted | [address], | | | | | | [place] [address] | | | | + + + + + + | Hemoglobin | 8.9 (L)Comment: Testing | 13.2 - 17.0 | EXTERNAL | | | | performed at [facility], [address] | g/dL | LAB | | | | [address], | | | | | | [place] [address] | | | | + + + + + + | Hematocrit, | 27.2 (L)Comment: Testing | 39.0 - 50.0 % | EXTERNAL | | | POC | performed at [facility], [address] | | LAB | | | | [address], | | | | | | [place] [address] | | | | + + + + + + | MCV | 85.1Comment: Testing | 80.0 - 100.0 fl | EXTERNAL | | | | performed at [facility], [address] | | LAB | | | | [address], | | | | | | [place] [address] | | | | + + + + + + | MCH | 27.7Comment: Testing | 27.0 - 34.0 pg | EXTERNAL | | | | performed at [facility], [address] | | LAB | | | | [address], | | | | | | [place] [address] | | | | + + + + + + | MCHC | 32.6Comment: Testing | 32.0 - 35.5 | EXTERNAL | | | | performed at [facility], [address] | g/dL | LAB | | | | [address], | | | | | | [place] [address] | | | | + + + + + + | RDW-CV | 49.0Comment: Testing | 37 - 53 fl | EXTERNAL | | | | performed at [facility], [address] | | LAB | | | | [address], | | | | | | [place] [address] | | | | + + + + + + | Platelet | 103 (L)Comment: Testing | 150 - 400 K/uL | EXTERNAL | | | Count | performed at [facility], [address] | | LAB | | | Plasma | [address], | | | | | | [place] [address] | | | | + + + + + + | MPV | 9.1Comment: Testing | fl | EXTERNAL | | | | performed at [facility], [address] | | LAB | | | | [address], | | | | | | [place] [address] | | | | + + + + + + | Differentia | AUTOMATEDComment: | | EXTERNAL | | | l Type | Testing performed at | | LAB | | | | [facility], [address] | | | | | | [place] | | | | | | [address] | | | | + + + + + + | % Segmented | 70.80Comment: Testing | % | EXTERNAL | | | | performed at [facility], [address] | | LAB | | | Neutrophils | [address], | | | | | | [place] [address] | | | | + + + + + + | % | 19.56Comment: Testing | % | EXTERNAL | | | Lymphocytes | performed at [facility], [address] | | LAB | | | | [address], | | | | | | [place] [address] | | | | + + + + + + | % Monocytes | 8.15Comment: Testing | % | EXTERNAL | | | | performed at [facility], [address] | | LAB | | | | [address], | | | | | | [place] [address] | | | | + + + + + + | % | 1.12Comment: Testing | % | EXTERNAL | | | Eosinophils | performed at [facility], [address] | | LAB | | | | [address], | | | | | | [place] [address] | | | | + + + + + + | % Basophils | 0.37Comment: Testing | % | EXTERNAL | | | | performed at [facility], [address] | | LAB | | | | [address], | | | | | | [place] [address] | | | | + + + + + + | Absolute | 4.40Comment: Testing | 1.90 - 7.40 | EXTERNAL | | | Segmented | performed at [facility], [address] | K/uL | LAB | | | Neutrophils | [address], | | | | | | [place] [address] | | | | + + + + + + | Absolute | 1.22Comment: Testing | 1.00 - 3.90 | EXTERNAL | | | Lymphocytes | performed at [facility], [address] | K/uL | LAB | | | | [address], | | | | | | [place] [address] | | | | + + + + + + | Absolute | 0.51Comment: Testing | 0.00 - 0.80 | EXTERNAL | | | Monocytes | performed at [facility], [address] | K/uL | LAB | | | | [address], | | | | | | [place] [address] | | | | + + + + + + | Absolute | 0.07Comment: Testing | 0.00 - 0.50 | EXTERNAL | | | Eosinophils | performed at [facility], [address] | K/uL | LAB | | | | [address], | | | | | | [place] [address] | | | | + + + + + + | Absolute | 0.02Comment: Testing | 0.00 - 0.10 | EXTERNAL | | | Basophils | performed at [facility], [address] | K/uL | LAB | | | | [address], | | | | | | [place] [address] | | | | + + + [...] | | | | | [place] [address] | | | | + + + [...] EXTERNAL | | | | performed at [facility], [address] | | LAB | | | | [address], | | | | | | [place] [address] | | | | + + + [...] | | | | | [place] [address] | | | | + + + + + + | K | 3.8Comment: Testing | 3.5 - 4.9 | EXTERNAL | | | | performed at [facility], [address] | mmol/L | LAB | | | | [address], | | | | | | [place] [address] | | | | + + + + + + | Cl | 106Comment: Testing | 99 - 109 mmol/L | EXTERNAL | | | | performed at [facility], [address] | | LAB | | | | [address], | | | | | | [place], [place] [address] | | | | + + + + + + | CO2 | 27Comment: Testing | 23 - 32 mmol/L | EXTERNAL | | | | performed at [facility], [address] | | LAB | | | | [address], | | | | | | [place], [place] [address] | | | | + + + + + + | Anion Gap | 7Comment: Testing | 5 - 20 mmol/L | EXTERNAL | | | | performed at [facility], [address] | | LAB | | | | [address], | | | | | | [place] [address] | | | | + + + + + + | Glucose, | 99Comment: Testing | 65 - 99 mg/dL | EXTERNAL | | | Fasting | performed at [facility], [address] | | LAB | | | | [address], | | | | | | [place] [address] | | | | + + + + + + | BUN | 4 (L)Comment: Testing | 8 - 25 mg/dL | EXTERNAL | | | | performed at [facility], [address] | | LAB | | | | [address], | | | | | | [place] [address] | | | | + + + + + + | Creatinine | 0.48 (L)Comment: Testing | 0.70 - 1.30 | EXTERNAL | | | | performed at [facility], [address] | mg/dL | LAB | | | | [address], | | | | | | [place] [address] | | | | + + + + + + | BUN/Creatin | 8Comment: Testing | | EXTERNAL | | | ine Ratio | performed at [facility], [address] | | LAB | | | [address], | | | | | | [place] [address] | | | | + + + + + + | Calcium | 8.3 (L)Comment: Testing | 8.5 - 10.5 | EXTERNAL | | | | performed at [facility], [address] | mg/dL | LAB | | | | [facility], | | | | | | [place] [address] | | | | + + + [...] W | | | | | | [address], | | | | | | [place] [address] | | | | + + + [...] EXTERNAL | | | | performed at [facility];[address] | mmol/L | LAB | | | | [address];[place] | | | | | | [address] | | | | + + + [...] EXTERNAL | | | | performed at [facility];[address] | | LAB | | | | [address];[place], [place] | | | | | | [address] | | | | + + + [...] EXTERNAL | | | | performed at [facility] | | LAB | | | | [address] [facility];[place], [place] | | | | | | [address] | | | | + + + [...] drain | | | placement. 2. Improved rpgag-xq-ytsq midline shift. RADIA | | | Electronically signed by Joshua Rivera MD on May 30 2015 10:35AM | | | Referring Provider Line: [phone] ID: [id number] | | + + + [...] has improved. There is | | | pryot-zu-izog midline shift measuring at least 5 mm [...] seen. Intracranial pneumocephalus has improved. There is ddxao-xv-urdm midline shift | | measuring at least [...] interval subdural drain placement.2. | | Improved nlqhy-im-fzrh midline shift. RADIA Electronically signed by Joshua Rivera MD | | on May 30 2015 10:35AM Referring Provider Line: [phone] ID: [id number] | | | |Sinuses: Paranasal [...] molina bdural drain placement. | |2. Improved ebjma-vx-eswt midline shift. | | | |RADIA | | | | Electronically signed by Joshua Rivera MD on May 30 2015 10:35AM Referring Provider Line: [phone] ID: [id number] | + + PTT (05/30/2015 2:59 AM PDT) + + + + + + | Component | Value | Ref Range | Performed | Pathologist | | | | | At | Signature | + + + + + + | aPTT, | 33 (H)Comment: Testing | 23 - 32 seconds | EXTERNAL | | | Patient | performed at [facility];[address] | | LAB | | | | [address];[place], [place] | | | | | | [address] | | | | + + + [...] | | | | | performed at [facility];[address] | | | | | | [address] [facility];[place], [place] | | | | | | [address] | | | | + + + [...] | | | | | [place] [address] | | | | + + + + + + | Red Blood | 3.24 (L)Comment: Testing | 4.20 - 5.70 | EXTERNAL | | | Cells | performed at [facility], [address] | M/uL | LAB | | | Counted | [address], | | | | | | [place] [address] | | | | + + + + + + | Hemoglobin | 8.8 (L)Comment: Testing | 13.2 - 17.0 | EXTERNAL | | | | performed at [facility], [address] | g/dL | LAB | | | | [address], | | | | | | [place] [address] | | | | + + + + + + | Hematocrit, | 27.5 (L)Comment: Testing | 39.0 - 50.0 % | EXTERNAL | | | POC | performed at [facility], [address] | | LAB | | | | [address], | | | | | | [place] [address] | | | | + + + + + + | MCV | 85.1Comment: Testing | 80.0 - 100.0 fl | EXTERNAL | | | | performed at [facility], [address] | | LAB | | | | [address], | | | | | | [place] [address] | | | | + + + + + + | MCH | 27.3Comment: Testing | 27.0 - 34.0 pg | EXTERNAL | | | | performed at [facility], [address] | | LAB | | | | [address], | | | | | | [place] [address] | | | | + + + + + + | MCHC | 32.1Comment: Testing | 32.0 - 35.5 | EXTERNAL | | | | performed at [facility], [address] | g/dL | LAB | | | | [address], | | | | | | [place] [address] | | | | + + + + + + | RDW-CV | 47.3Comment: Testing | 37 - 53 fl | EXTERNAL | | | | performed at [facility], [address] | | LAB | | | | [address], | | | | | | [place] [address] | | | | + + + + + + | Platelet | 117 (L)Comment: Testing | 150 - 400 K/uL | EXTERNAL | | | Count | performed at [facility], [address] | | LAB | | | Plasma | [address], | | | | | | [place] [address] | | | | + + + + + + | MPV | 9.7Comment: Testing | fl | EXTERNAL | | | | performed at [facility], [address] | | LAB | | | | [address], | | | | | | [place] [address] | | | | + + + + + + | Differentia | AUTOMATEDComment: | | EXTERNAL | | | l Type | Testing performed at | | LAB | | | | [facility], [address] | | | | | | [place] | | | | | | [address] | | | | + + + + + + | % Segmented | 72.39Comment: Testing | % | EXTERNAL | | | | performed at [facility], [address] | | LAB | | | Neutrophils | [address], | | | | | | [place] [address] | | | | + + + + + + | % | 16.63Comment: Testing | % | EXTERNAL | | | Lymphocytes | performed at [facility], [address] | | LAB | | | | [address], | | | | | | [place] [address] | | | | + + + + + + | % Monocytes | 10.39Comment: Testing | % | EXTERNAL | | | | performed at [facility], [address] | | LAB | | | | [address], | | | | | | [place] [address] | | | | + + + + + + | % | 0.31Comment: Testing | % | EXTERNAL | | | Eosinophils | performed at [facility], [address] | | LAB | | | | [address], | | | | | | [place] [address] | | | | + + + + + + | % Basophils | 0.28Comment: Testing | % | EXTERNAL | | | | performed at [facility], [address] | | LAB | | | | [address], | | | | | | [place] [address] | | | | + + + + + + | Absolute | 5.32Comment: Testing | 1.90 - 7.40 | EXTERNAL | | | Segmented | performed at [facility], [address] | K/uL | LAB | | | Neutrophils | [address], | | | | | | [place] [address] | | | | + + + + + + | Absolute | 1.22Comment: Testing | 1.00 - 3.90 | EXTERNAL | | | Lymphocytes | performed at [facility], [address] | K/uL | LAB | | | | [address], | | | | | | [place] [address] | | | | + + + + + + | Absolute | 0.76Comment: Testing | 0.00 - 0.80 | EXTERNAL | | | Monocytes | performed at [facility], [address] | K/uL | LAB | | | | [address], | | | | | | [place] [address] | | | | + + + + + + | Absolute | 0.02Comment: Testing | 0.00 - 0.50 | EXTERNAL | | | Eosinophils | performed at [facility], [address] | K/uL | LAB | | | | [address], | | | | | | [place] [address] | | | | + + + + + + | Absolute | 0.02Comment: Testing | 0.00 - 0.10 | EXTERNAL | | | Basophils | performed at [facility], [address] | K/uL | LAB | | | | [address], | | | | | | [place] [address] | | | | + + + [...] EXTERNAL | | | | performed at [facility], [address] | | LAB | | | | [address], | | | | | | [place] [address] | | | | + + + [...] EXTERNAL | | | | performed at [facility], [address] | | LAB | | | | [address], | | | | | | [place] [address] | | | | + + + [...] | | | | | [place] [address] | | | | + + + + + + | K | 3.7Comment: Testing | 3.5 - 4.9 | EXTERNAL | | | | performed at [facility], [address] | mmol/L | LAB | | | | [address], | | | | | | [place] [address] | | | | + + + + + + | Cl | 106Comment: Testing | 99 - 109 mmol/L | EXTERNAL | | | | performed at [facility], [address] | | LAB | | | | [address], | | | | | | [place] [address] | | | | + + + + + + | CO2 | 27Comment: Testing | 23 - 32 mmol/L | EXTERNAL | | | | performed at [facility], [address] | | LAB | | | | [address], | | | | | | [place] [address] | | | | + + + + + + | Anion Gap | 6Comment: Testing | 5 - 20 mmol/L | EXTERNAL | | | | performed at [facility], [address] | | LAB | | | | [place], | | | | | | [place] [address] | | | | + + + + + + | Glucose, | 106 (H)Comment: Testing | 65 - 99 mg/dL | EXTERNAL | | | Fasting | performed at [facility], [address] | | LAB | | | | [address], | | | | | | [place] [address] | | | | + + + + + + | BUN | 5 (L)Comment: Testing | 8 - 25 mg/dL | EXTERNAL | | | | performed at [facility], [address] | | LAB | | | | [address], | | | | | | [place] [address] | | | | + + + + + + | Creatinine | 0.50 (L)Comment: Testing | 0.70 - 1.30 | EXTERNAL | | | | performed at [facility], [address] | mg/dL | LAB | | | | [address], | | | | | | [place] [address] | | | | + + + + + + | BUN/Creatin | 10Comment: Testing | | EXTERNAL | | | ine Ratio | performed at [facility], [address] | | LAB | | | [address], | | | | | | [place] [address] | | | | + + + + + + | Calcium | 8.1 (L)Comment: Testing | 8.5 - 10.5 | EXTERNAL | | | | performed at [facility], [address] | mg/dL | LAB | | | | [address], | | | | | | [place] [address] | | | | + + + [...] [address], | | | | | | [place] [address] | | | | + + + [...] | | | Count | performed at [facility];[address] | | LAB | | | Plasma | [address];[place] | | | | | | [address] | | | | + + + [...] | | | Patient | performed at [facility] | | LAB | | | | [address];[place] | | | | | | [address] | | | | + + + [...] | | | | | performed at [facility];[address] | | | | | | [address];[place], [place] | | | | | | [address] | | | | + + + [...] EXTERNAL | | | | performed at [facility];[address] | | LAB | | | | [address];[place], [place] | | | | | | [address] | | | | + + + [...] | | | | | performed at [facility];[address] | | | | | | [facility];[place], [place] | | | | | | [address] | | | | + + + [...] | | LAB | | | | [facility] [address] | | | | | | [address];[place] [address] | | | | + + + + + + | PCO2 ART | 37Comment: Testing | 35 - 45 mmHg | EXTERNAL | | | | performed at [facility];[address] | | LAB | | | | [address];[place] | | | | | | [address] | | | | + + + + + + | PO2 ART | 208 (H)Comment: Testing | 80 - 105 mmHg | EXTERNAL | | | | performed at [facility];[address] | | LAB | | | | [address];[place] | | | | | | [address] | | | | + + + + + + | HCO3 ART | 26Comment: Testing | 22 - 26 mmol/L | EXTERNAL | | | | performed at [facility];[address] | | LAB | | | | [address];[place] | | | | | | [address] | | | | + + + + + + | POC | 27Comment: Testing | 23 - 27 mEq/L | EXTERNAL | | | APPEARANCE | performed at [facility];[address] | | LAB | | | UA | [address];[place] | | | | | | [address] | | | | + + + + + + | Base | 2Comment: Testing | 0 - 3 mEq/L | EXTERNAL | | | Excess, | performed at [facility];[address] | | LAB | | | Arterial | [address];[place] | | | | | | [address] | | | | + + + + + + | O2 SAT ART | 100 (H)Comment: Testing | 95 - 98 % | EXTERNAL | | | | performed at [facility];[address] | | LAB | | | | [address];[place] | | | | | | [address] | | | | + + + + + + | Sodium, POC | 134 (L)Comment: Testing | 135 - 145 mEq/L | EXTERNAL | | | | performed at [facility];[address] | | LAB | | | | [address];[place] | | | | | | [address] | | | | + + + + + + | Potassium, | 3.6Comment: Testing | 3.5 - 5.0 mEq/L | EXTERNAL | | | POC | performed at [facility];[address] | | LAB | | | | [address];[place] | | | | | | [address] | | | | + + + + + + | Ionized | 1.09 (L)Comment: Testing | 1.12 - 1.32 | EXTERNAL | | | Calcium, | performed at [facility];888 | mmol/L | LAB | | | POC | [address];[place] | | | | | | [address] | | | | + + + + + + | Glucose, | 191 (H)Comment: Testing | 65 - 99 mg/dL | EXTERNAL | | | POC | performed at [facility];[address] | | LAB | | | | [address];[place] | | | | | | [address] | | | | + + + + + + | Hematocrit, | 35 (L)Comment: Testing | 40.0 - 50.0 % | EXTERNAL | | | POC | performed at [facility];[address] | | LAB | | | | [address];[place] | | | | | | [address] | | | | + + + + + + | Hemoglobin, | 11.9 (L)Comment: Testing | 13.7 - 16.7 | EXTERNAL | | | POC | performed at [facility];888 | g/dL | LAB | | | | [address];[place] | | | | | | [address] | | | | + + + [...] EXTERNAL | | | | performed at [facility], [address] | K/uL | LAB | | | | [address], | | | | | | [place] [address] | | | | + + + + + + | Red Blood | 4.00 (L)Comment: Testing | 4.20 - 5.70 | EXTERNAL | | | Cells | performed at [facility], [address] | M/uL | LAB | | | Counted | [address], | | | | | | [place] [address] | | | | + + + + + + | Hemoglobin | 11.0 (L)Comment: Testing | 13.2 - 17.0 | EXTERNAL | | | | performed at [facility], [address] | g/dL | LAB | | | | [address], | | | | | | [place] [address] | | | | + + + + + + | Hematocrit, | 33.7 (L)Comment: Testing | 39.0 - 50.0 % | EXTERNAL | | | POC | performed at [facility], [address] | | LAB | | | | [address], | | | | | | [place] [address] | | | | + + + + + + | MCV | 84.3Comment: Testing | 80.0 - 100.0 fl | EXTERNAL | | | | performed at [facility], [address] | | LAB | | | | [address], | | | | | | [place] [address] | | | | + + + + + + | MCH | 27.6Comment: Testing | 27.0 - 34.0 pg | EXTERNAL | | | | performed at [facility], [address] | | LAB | | | | [address], | | | | | | [place] [address] | | | | + + + + + + | MCHC | 32.8Comment: Testing | 32.0 - 35.5 | EXTERNAL | | | | performed at [facility], [address] | g/dL | LAB | | | | [address], | | | | | | [place] [address] | | | | + + + + + + | RDW-CV | 45.1Comment: Testing | 37 - 53 fl | EXTERNAL | | | | performed at [facility], [address] | | LAB | | | | [address], | | | | | | [place] [address] | | | | + + + + + + | Platelet | 135 (L)Comment: Testing | 150 - 400 K/uL | EXTERNAL | | | Count | performed at [facility], [address] | | LAB | | | Plasma | [address], | | | | | | [place] [address] | | | | + + + + + + | MPV | 9.2Comment: Testing | fl | EXTERNAL | | | | performed at [facility], [address] | | LAB | | | | [place], | | | | | | [place] [address] | | | | + + + + + + | Differentia | AUTOMATEDComment: | | EXTERNAL | | | l Type | Testing performed at | | LAB | | | | [facility], [address] | | | | | | [place] | | | | | | [address] | | | | + + + + + + | % Segmented | 75.95Comment: Testing | % | EXTERNAL | | | | performed at [facility], [address] | | LAB | | | Neutrophils | [place], | | | | | | [place] [address] | | | | + + + + + + | % | 14.93Comment: Testing | % | EXTERNAL | | | Lymphocytes | performed at [facility], [address] | | LAB | | | | [address], | | | | | | [place] [address] | | | | + + + + + + | % Monocytes | 8.68Comment: Testing | % | EXTERNAL | | | | performed at [facility], [address] | | LAB | | | | [address], | | | | | | [place] [address] | | | | + + + + + + | % | 0.25Comment: Testing | % | EXTERNAL | | | Eosinophils | performed at [facility], [address] | | LAB | | | | [address], | | | | | | [place] [address] | | | | + + + + + + | % Basophils | 0.19Comment: Testing | % | EXTERNAL | | | | performed at [facility], [address] | | LAB | | | | [address], | | | | | | [place] [address] | | | | + + + + + + | Absolute | 6.90Comment: Testing | 1.90 - 7.40 | EXTERNAL | | | Segmented | performed at [facility], [address] | K/uL | LAB | | | Neutrophils | [address], | | | | | | [place] [address] | | | | + + + + + + | Absolute | 1.36Comment: Testing | 1.00 - 3.90 | EXTERNAL | | | Lymphocytes | performed at [facility], [address] | K/uL | LAB | | | | [address], | | | | | | [place] [address] | | | | + + + + + + | Absolute | 0.79Comment: Testing | 0.00 - 0.80 | EXTERNAL | | | Monocytes | performed at [facility], [address] | K/uL | LAB | | | | [address], | | | | | | [place] [address] | | | | + + + + + + | Absolute | 0.02Comment: Testing | 0.00 - 0.50 | EXTERNAL | | | Eosinophils | performed at [facility], [address] | K/uL | LAB | | | | [address], | | | | | | [place] [address] | | | | + + + + + + | Absolute | 0.02Comment: Testing | 0.00 - 0.10 | EXTERNAL | | | Basophils | performed at [facility], [address] | K/uL | LAB | | | | [address], | | | | | | [place] [address] | | | | + + + [...] | | | | | [place] [address] | | | | + + + + + + | K | 4.1Comment: Testing | 3.5 - 4.9 | EXTERNAL | | | | performed at [facility], [address] | mmol/L | LAB | | | | [address], | | | | | | [place] [address] | | | | + + + + + + | Cl | 102Comment: Testing | 99 - 109 mmol/L | EXTERNAL | | | | performed at [facility], [address] | | LAB | | | | [address], | | | | | | [place] [address] | | | | + + + + + + | CO2 | 26Comment: Testing | 23 - 32 mmol/L | EXTERNAL | | | | performed at [facility], [address] | | LAB | | | | [address], | | | | | | [place] [address] | | | | + + + + + + | Anion Gap | 10Comment: Testing | 5 - 20 mmol/L | EXTERNAL | | | | performed at [facility], [address] | | LAB | | | | [address], | | | | | | [place] [address] | | | | + + + + + + | Glucose, | 109 (H)Comment: Testing | 65 - 99 mg/dL | EXTERNAL | | | Fasting | performed at [facility], [address] | | LAB | | | | [place], | | | | | | [place] [address] | | | | + + + + + + | BUN | 7 (L)Comment: Testing | 8 - 25 mg/dL | EXTERNAL | | | | performed at [facility], [address] | | LAB | | | | [place], | | | | | | [place] [address] | | | | + + + + + + | Creatinine | 0.62 (L)Comment: Testing | 0.70 - 1.30 | EXTERNAL | | | | performed at [facility], [address] | mg/dL | LAB | | | | [address] [place] [address], | | | | | | [place] [address] | | | | + + + + + + | BUN/Creatin | 11Comment: Testing | | EXTERNAL | | | ine Ratio | performed at [facility], [address] | | LAB | | | | [address] [place], | | | | | | [place] [address] | | | | + + + + + + | Calcium | 8.8Comment: Testing | 8.5 - 10.5 | EXTERNAL | | | | performed at [facility], [address] | mg/dL | LAB | | | | [address] [place], | | | | | | [place] [address] | | | | + + + [...] | | | | | | [address], | | | | | | [place] [address] | | | | + + + [...] | | | | | [place] [address] | | | | + + + + + + | Clarity | CLEARComment: Testing | | EXTERNAL | | | | performed at [facility], [address] | | LAB | | | | [place], | | | | | | [place] [address] | | | | + + + + + + | Specific | 1.029Comment: Testing | 1.002 - 1.030 | EXTERNAL | | | Angora, | performed at [facility], [address] | | LAB | | | Urine | [address], | | | | | | [place] [address] | | | | + + + + + + | Leukocyte | NEGATIVEComment: Testing | | EXTERNAL | | | Esterase, | performed at [facility], [address] | | LAB | | | Urine | [address], | | | | | | [place] [address] | | | | + + + + + + | Nitrite, | NEGATIVEComment: Testing | | EXTERNAL | | | Urine | performed at [facility], [address] | | LAB | | | | [address], | | | | | | [place] [address] | | | | + + + + + + | Urobilinoge | 1.0Comment: Testing | mg/dL | EXTERNAL | | | n, Urine | performed at [facility], [address] | | LAB | | | | [address], | | | | | | [place] [address] | | | | + + + + + + | Protein, | NEGATIVEComment: Testing | mg/dL | EXTERNAL | | | Urine | performed at [facility], [address] | | LAB | | | | [address], | | | | | | [place] [address] | | | | + + + + + + | pH, Urine | 5.0Comment: Testing | 5.0 - 8.0 | EXTERNAL | | | | performed at [facility], [address] | | LAB | | | | [address], | | | | | | [place] [address] | | | | + + + + + + | Blood, | NEGATIVEComment: Testing | | EXTERNAL | | | Urine | performed at [facility], [address] | | LAB | | | | [address] [place], | | | | | | [place] [address] | | | | + + + + + + | Ketones | 40 (A)Comment: Testing | mg/dL | EXTERNAL | | | | performed at [facility], [address] | | LAB | | | | [address], | | | | | | [place] [address] | | | | + + + + + + | Bilirubin, | NEGATIVEComment: Testing | | EXTERNAL | | | Urine | performed at [facility], [address] | | LAB | | | | [address], | | | | | | [place] [address] | | | | + + + + + + | Glucose, | NEGATIVEComment: Testing | mg/dL | EXTERNAL | | | Urine | performed at [facility], [address] | | LAB | | | | [address] [place] [address], | | | | | | [place] [address] | | | | + + + [...] EXTERNAL LAB | | Testing performed at [address];[place] [address] MRSA PCR | | | NEGATIVE Testing performed at | | | [address];[place] [address] | | + + + + +---------+ [...] ISOLATED | | | Testing performed at [facility], [address] | | [place] [address] | | + + + + +---------+ [...] GROWTH | | | Testing performed at [facility], [address] [facility], | | | [place] [address] | | + + + + +---------+ [...] LAB | | | | Blvd;[place] [address] | | | | + + + + + + | Antibody | NEGATIVE | | EXTERNAL | | | Screen | | | LAB | | + + + + + + | Antibody | Testing performed at | | EXTERNAL | | | Screen | [facility] | | LAB | | | | Blvd;[place] [address] | | | | + + + + + + | BB BAND | [id number] | | EXTERNAL | | | | | | LAB | | + + + + + + | BB BAND | Testing performed at | | EXTERNAL | | | | [facility] | | LAB | | | | [place] [address] | | | | + + + [...]
--- OUTSIDE RECORDS SUMMARY | ~2020-03-25 | XMS | Encounter Summary ---
Demographics + + + | Address | [address] | | | [place] [address] | + + + | Home Phone [...] Team Providers + +------+ + | Care Loose Hand Packer Name | Role | Phone | + +------+ + PCP | Unavailable | + +------+ + Encounter Details +--------+ + + + + | Date | Type | Department | Care Team | Description | +--------+ + + + + | 02/17/ | Results | Orthopaedics at | [place], | | | 2002 | Only | [facility] [address] | MD Manuelito | | | | | [address] | | | | | | Mailcode: [id number] | | | | | | [facility] | | | | | | [place], [place] | | | | | | [address] | | | | | | [phone] | | | +--------+ + + + [...]
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
--- OUTSIDE RECORDS SUMMARY | ~2020-03-25 | XMS | Encounter Summary ---
Demographics + + + | Address | [address] | | | [place] [address] | + + + | Home Phone [...] Team Providers + +------+ + | Care Warm In Worker Name | Role | Phone | + +------+ + | Anny nEnis DO | PCP | Unavailable | + [...] | | | | | [place], | | | | | | [place] [address] | | | | | | [phone] | | | +--------+ + + + [...]
--- OUTSIDE RECORDS SUMMARY | ~2020-03-25 | XMS | Encounter Summary ---
Demographics + + + | Address | [address] | | | [place] [address] | + + + | Home Phone | | + + + | Preferred Language | Unknown | + + + | Marital Status | Single | + + + | Faith Affiliation | Unknown | + + + [...] Team Providers + +------+ + | Care Chronic Specialist Name | Role | Phone | [...] | | | | | Dy[place], | | | | | | [place] [address] | | | | | | [phone] | | | +--------+ + + + [...]
--- OUTSIDE RECORDS SUMMARY | ~2020-03-25 | XMS | Encounter Summary ---
Demographics + + + | Address | [address] | | | [place] [address] | + + + | Home Phone [...] Team Providers + +------+ + | Care Lithographic Printing Machinist Name | Role | Phone | + [...] Torres | | | | | | [facility] and | | | | | | Counseling [address] | | | | | | [address] [place], | | | | | | [place] [address] | | | | | | [phone] | | | | | | | [...] | | + +---------+ + + | [facility] DEPARTMENT OF | | | | [...] | | + +---------+ + + | [facility] DEPARTMENT OF | | | | | [...] | | + +---------+ + + | [facility] DEPARTMENT OF | | | | [...] | | + +---------+ + + | [facility] DEPARTMENT OF | | | | [...]
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
--- OUTSIDE RECORDS SUMMARY | ~2020-03-25 | XMS | Encounter Summary ---
Demographics + + + | Address | [address] | | | [place] [address] | + + + | Home Phone | | + + + | Preferred Language | Unknown | + + + | Marital Status | | + + + | Yazdanism Affiliation | Unknown | + + + | Race | Unknown | + + + | Ethnic Group | Unknown | + + + Author + + + | Author | [facility] | | | and Olegarioana | + + + | Organization | [facility] | | | [...] Team Providers + +------+ + | Care Vp Legal Affairs Name | Role | Phone | + [...] + + + + | 08/09/ | [facility] | [facility] | Ramiro Bey, | Alcoholism (HCC) | | 2015 - | Encounter | MED [facility] | [address] | (Primary Dx); | | | | [address] | [place] | Hypokalemia; | | 08/14/ | | [place] [address] | [address] | Pyelonephritis; | | 2014 | | [phone] | [phone] | Sepsis, due to | | | | | | unspecified organism | | | | | | ([facility]); Falls, | | | | | | subsequent | | | | | | encounter; Sepsis, | | | | | | Gram negative ([facility]); | | | | | | Sepsis due to | | | | | | Escherichia coli (E. | | | | | | coli) ([facility]) | +--------+ + + + [...] West MD - 08/14/2015 10:35 AM PST [facility] DISCHARGE SUMMARY Pt. Name/Age/: Tony Sánchez 54 [...] complete 14-day total course of therapy at [facility]. Vital signs, physical examination, and laboratory values were within appropriate limits at time of discharge. Patient discharged to SNF ([facility] in [place], [place]). Labs admission/discharge days: WBC 12.2 -> [...] He denies any other problems. Plans in [facility] for discharge back to [facility] today. Patient denies headache, fever, chills, nausea, [...] 2 weeks. Specialty: Family Medicine Contact information: [address] [place] [address] Condition: Patient being discharged with condition improved. Diet: Regular Activity: as tolerated, but up with assistance only (high fall risk) Greater than 30 minutes were spent on discharge and coordination of post-hospital care. Electronically signed by: Marco Antonio West MD, 08/14/2015 10:35 [facility] documented in thi s encounter Discharge Instructions Instructions Marco Antonio West MD - 08/14/2015Regular diet. Activity as tolerated. Up with assistance only (high fall risk). Follow-up with PCP Mason Oliveira DO in 2 weeks. AttachmentsThe following attachments cannot be sent through Care Everywhere.PERIPHERALLY IN SERTED CENTRAL CATHETER (PICC), DISCHARGE INSTRUCTIONS FOR CARING FOR YOUR (KENYAN)document ed in this encounter Medications at Time [...] West MD - 08/13/2015 4:59 PM PST [facility] PROGRESS NOTE Patient: Tony Sánchez : 1960: Age: 54 y.o. MedRec: [id number] Admission date: 08/09/2015 Hospital day # : [...] CKTOTAL No results for input(s): PHART, PO2ART, [id number], LQH7ANG, BEART, K6YNOIFL in the last 168 h ours. Point [...] stable 8) Dispo - likely back to [facility] 08/14 if they can accept back Marco Antonio West MD 08/13/2015 16:59 Merged with [facility] asch, Nae Baumann MD - 08/12/2015 1:29 PM PST [facility] HOSPITALIST PROGRESS NOTE PATIENT NAME: Tony Sánchez AGE: 54 y.o. DATE OF SERVICE: 08/12/2015 SUBJECTIVE: No new concerns. Called [place], set up fax of results 08/11 final [...] this chart may have been created using [employer] voice recognition software. Occas ional wrong-word or "sound alike" substitutions may have occurred due to the inherent limita tions of voice recognition software. Please read chart carefully and recognize using context where these substitutions have occurred.Electronically signed by Nae Lala MD at 1:32 PM PSTLea Regional Medical Centersintia, Nae Baumann MD - 08/11/2015 4:25 PM PSTFormatting of this note mi ght be different from the original. [facility] HOSPITALIST PROGRESS NOTE PATIENT NAME: Tony Sánchez AGE: 54 y.o. DATE OF SERVICE: 08/11/2015 SUBJECTIVE: No chest pain, no shortness of breath. Denies back/flank pain. No new concerns. Called [place], set up fax of results. OBJECTIVE: VITAL [...] display. Plan: continue empiric antibiotics, call from [facility] with blood cx + gram neg josefina. aw aiting final for treatment plan and discharge planning DATE/TIME: 08/11/2015 16:25 SIGNED: Nae Lala MD Portions of this chart may have been created using [employer] voice recognition software. Occas ional wrong-word or "sound alike" substitutions may have occurred due to the inherent limita tions of voice recognition software. Please read chart carefully and recognize using context where these substitutions have occurred.Electronically signed by Nae Lala MD at 4:27 PM Nae Tatum MD - 08/10/2015 3:00 PM PSTFormatting of this note mi ght be different from the original. [facility] HOSPITALIST PROGRESS NOTE PATIENT NAME: Tony [...] display. Plan: continue empiric antibiotics, call from [facility] with blood cx + gram neg [...] might be different f rom the original. [facility] HISTORY AND PHYSICAL Pt. Name/Age/: [...] craniectomy, and then was discharged to a senior living facility in [place] until ab out a week ago, when he went to live with his parents on the [facility]. He has had some falls since going to live with his parents, and reportedly had some fevers and diarrhea over the last 1-2 days. Today was less responsive with a fever, and he was br ought in to [facility], where he was found to have a [...] left hand g rip 4/5, right hand publishing systems analyst 5/5, plantarflexion 5/5 bilaterally, soft-touch sensation intact [...] - Received fluids, vancomycin, and cefepime at [facility], now hemodynamically stable - Has urinary source, so will treat with IV ceftriaxone and await cultures from [facility] Pyelonephritis Assessment & Plan - No reported history of this, will check PVR to make sure no obstruction - Renal function normal Falls Assessment & Plan - Likely multifactorial from alcoholism, TBI, and acute infection - PT consult before discharge - Unclear discharge plan, will need to discuss with parents, who had been planning to get h im into SNF on [facility] Alcoholism Assessment & Plan - Apparently no active use, but will monitor for withdrawal Hypokalemia Assessment & Plan - Reportedly has had some diarrhea, unclear how his nutrition has been - K and Mag repleted at [facility], recheck now Hypomagnesemia Assessment & Plan - [...] signed by: Ramiro Bey MD 08/09/2015 22:54 [facility] Portions of this chart may have been created with [employer] voice recognition software. Occasi onal wrong-word or [...] w/FWW, a lit tle wobbly. Discharged to [facility] at 1300. Report called to charge nurse there. lan of Care - Therese Sexton - 08/14/2015 12:45 PM PSTSpoke with Mary Beth @ [facility], she can accept this pa tient today. Met with patient regarding discharging today, let him know that [facility] today. He asked that this CM call his parents. Answered all his questions and concerns. T/C to mom, let her know about the discharge plan. Answered all her questions and concerns, she stated, she can't transport him. This CM called Medicaid transportation. They set up a time for 1300 today. Through Marcia regalado Faxed orders, PASRR, Discharge Summary and RX to [facility]. Received the "Kobe hayes Report" (Result OK) [...] West MD Consultants: None PCP: Mason Oliveira [facility] transferring to: [facility] Provider after transfer: SNF physician CODE STATUS: [x] Attempt CPR [] Do not resuscitate If patient is pulseless and not breathing, RN/FINGER BUFFS ASSEMBLER may pronounce . Advanced Directives included: [] [...] for this patient. Diet: [] As tolerated REAL ESTATE TEACHER may upgrade or downgrade diet as condition Indicates. [] RN may downgrade diet as indicated. Type: [x] Continue current diet of: Diet and Supplements Diet DIET GENERAL Number of Occurrences: Until Specified [] Other: Consistency/Precautions: [] Whole [] Thin Liquids [] Cut-up [] [place] Thick [] Advanced Chopped [] Honey Thickened [] Chopped [] Advanced Ground [] 1:1 feedings [] Ground/Pureed [] Other: Tube Feedings: [] PEG [] GT [] JT [] NGT [] Formula type: (Outside Installer Apprentice may change/substitute if indicated). [] Continuous Rate: [...] Evaluation & Management for: physical deconditioning [] REAL ESTATE TEACHER Evaluation &Management for: [] Other: Wound/Skin Care: [...] Antonio BROOKE MD, certify that post hospital senior living care is medically nece ssary on a continuing basis for any of the conditions for which he/she received care during this hospitalization. Check one: [x] Skilled [] Intermediate Additional Orders/Instructions: Physician's signature:Marco Antonio West 08/14/2015 10:33 [facility] NURSING [facility] USE ONLY: [] Admitting orders verbally reviewed with Admitting Physician, modified where appropriate, and approved. Verbal Order from Date: Time: _ RN name: RN signature: [] Admitting orders reviewed, modified where appropriate, and approved. Physician's signature: Date: Time: lan of [facility] - Tamiko Cowan RN - 08/14/2015 [...] but alternative living situation being sought. lan [facility] - Therese Maza - 08/13/2015 2:16 PM PSTSpoke with Mary Beth @ [facility], they can accept this nelson ent at discharge. CM to follow closer to discharge. Electronically signed by: Therese Dao 08/13/2015 14:16 lan of [facility] - Parth Hsu RN - 08/13/2015 [...] pt fell in his room while the INDUSTRIAL STAFF NURSE was assisting him to the bathroom with the FWW, according to the INDUSTRIAL STAFF NURSE, and she stated that the pt did not hit his head. Pt was asse ssed by RN. VSS, hand assistant manager quality management and leg strengths without new neuro deficits. Pt continued to b e at his baseline mentation. Pt had a small scrape on his right lower forearm and on his up per left back, both disinfected by alcohol and covered by band-aids. No drainage from eithe r scrape. Pt stated that his pain is 10/10 and received two tablets of [place] 5-325mg with r elief. Pt appeared to [...] 4:40 PM PSTSpoke with Mary Beth @ [facility], she doesn't see any re ason why [...] left shoulder and got one tablet of [place] 5-325mg. Two hours later pt c/o pain 8/10 in his left shoulder and a headache and received another tablet of [place] 5 -325mg with relief that allowed him to sleep for several hours. Pt is incontinent of urine and voids copious amounts of clear, yellow urine without odor. Pt alternates between using the bedside urinal and urinating in bed onto incontinence pads. Pt c/o headache 9/10 in the back of his head and in the left side of it. Pt got two tablets of [place] 5-325mg with reli ef. VSS. Pt is able to make his needs known, and is compliant with care. Pt's left arm is weak and he gets assistance from one staff member during miley-care and pad changes after in continence episodes. lan of [facility] - Misty Mcneil RN - 08/11/2015 [...] the day, voiding clear/yellow urine. lan of [facility] - Misty Maxwell RN - 08/11/2015 [...] acute hos pitalization, he was moved to [facility] and after a few months was transferred to [facility]. His mom did not know the reason why he was transferred, adding that not even Tony knew why. He was only discharged from [facility] 2 weeks ago. Since he has be en at his [facility]. They assist him with walking. She said [...] Oliveira, were trying to place him at [facility], an assisted living facility in [place]. His parents hope he can go there at discharge. As a Plan B, or if he needs prolonged IV antibx, his parents would prefer him at [facility]. Formal referr als sent to [facility] and [facility] (since reason unknown why he was transferred f [facility] to [facility]). Tracker [id number] Discussed with business continuity planner Therese. She will follow up with [...] trunk co ntrol, and dressing. Estrellita Garnica RNtape editor lan of Care - Bor am, Nayana [...] forgetful, h e thought he was in [facility] and he thinks that he is in the hospital because of his brain and he thought it was 2011. Patient forgets that he has an infection. Patient has been c/o left shoulder pain through out the night, given [place] pills about every 4 hours. P atient [...] desired outcomes. Outcome: Progressing Pain controlled with [place] about every 4 hours during the night. lan of [facility] - Roshan torre, Nayana Light RN - 08/11/2015 1:54 AM PSTA&O to self only, but he is directed and oriented r eally easily and forgetful, he thought he was in [place] and he thinks that he is in the [facility] because of his brain and he thought it was 2011. Patient has been c/o left shoulder pain through out the night, given [place] pills every 4 hours. Patient seems weak [...] dizziness when out of bed. lan of [facility] Elvis Hennessy RN - 08/10/2015 7:00 PM PSTProblem: General Plan of Care (Adult, Obstetric s) Goal: Care Plan Shift Summary & Review . Outcome: Progressing A&O to self, place, situation but fortgetful at times. Pt has been c/o left shoulder pain t hrough out the day, medicated with [place] pills. Requires one person and FWW with transfers t o the [facility]. Pt stated, "I am very weak and I don't know why." Calls approprietly. IV fluids s till infusing, denies SOB, remains on room air. Afebrile, BP in the 100/60, no dizziness whe n he is out of bed. lan of [facility] - Elvis Pryor ra, RN - 08/10/2015 2:20 PM PSTPt c/o left shoulder pain of "9/10" medicated with two [place] pills per patient request, A&O x4, denies SOB. Pt continues afebrile, BP in the 10 0/60. Will continue monitoring pain level. Electronically signed by Elvis Gongora RN at 2:23 PM PSTPlan of [facility] Yari Block RN - 08/10/2015 5:22 [...] [facility] signed by Ramiro Bey MD at 2014 [...] Sepsis due to Escherichia coli (E. coli) ([facility]) (Resolved 06/23/2019)- Presented with f ever, tachycardia and confusion from sepsis from a pyelonephritis - Received fluids, vancomycin, and cefepime at [facility], now hemodynamically stable - Has urinary source, so will treat with IV ceftriaxone and await cultures from [facility] ssessment & Plan N ote - Ramiro Bey MD - 08/09/2015 10:45 PM PSTAssociated Problem(s): Hypokalemia (Res olved 06/23/2019)- Reportedly has had some diarrhea, unclear how his nutrition has been - K and Mag repleted at [facility], recheck now lan of Care - Yari Block RN - 08/09/2015 8:50 PM PST Pt arrived from [place] via ambulance S/P fall and weakness. Pt [...] + | [facility] | [address] | [place] | [phone] | | [facility] | | [address] | | | - LABORATORY | | [...] ST. | [address] | [place], [place] | [phone] | | [facility] | | [address] | | | - LABORATORY | | [...] mL/min/1.73m2 | [facility] | | | [facility] | | | MEDICAL | | | [...] [address] | [place] | [phone] | | [facility] | | [address] | | | - LABORATORY | | [...] | | | | | | . [facility] | | | | | | MEDICAL | | | | | | CENTER - | | | | | | LABORATORY | | + + + + + + | RBC | 4.11 (L) | 4.30 - 5.70 | [facility] | | | | | M/uL | [facility] | [...] + | [facility] | [address] | [place] | [phone] | | [facility] | | [address] | | | - LABORATORY | | [...] [address] | [place] | [phone] | | [facility] | | [address] | | | - LABORATORY | | | | + + + + + Ammonia (08/13/2015 11:55 AM PST) + +--------+ + + + | Component | Value | Ref Range | Performed | Pathologist | | | | | At | Signature | + +--------+ + + + | Am[facility] | 43 (H) | 11 - 35 umol/L | [facility] | | | | | | ST. [...] [address] | [place] | [phone] | | [facility] | | [address] | | | - LABORATORY | | [...] [address] | [place] | [phone] | | [facility] | | [address] | | | - LABORATORY | | [...] [address] | [place] | [phone] | | [facility] | | [address] | | | - LABORATORY | | [...] | | Direct | | mg/dl | [facility] | | | | [...] ST. | [address] | [place], [place] | [phone] | | [facility] | | [address] | | | - LABORATORY | | [...] | | | | M/uL | [facility] | [...] + | [facility] | [address] | [place] | [phone] | | [facility] | | [address] | | | - LABORATORY | | [...] | mL/min/1.73m2 | [facility] | | | [facility] | RATE,ESTIMATED | | MEDICAL | | | | mL/min/1.32w3Xwle than | | CENTER - | | [...] [address] | [place] | [phone] | | [facility] | | [address] | | | - LABORATORY | | [...] | | | | M/uL | [facility] | [...] [address] | [place] | [phone] | | [facility] | | [address] | | | - LABORATORY | | [...] mL/min/1.73m2 | [facility] | | | [facility] | RATE,ESTIMATED | | MEDICAL | | | | mL/min/1.96l9Hzoh than | | CENTER - | | [...] [address] | [place] | [phone] | | [facility] | | [address] | | | - LABORATORY | | [...] + + | [facility] | [address] | [place] | [phone] | | [facility] | | [address] | | | - LABORATORY | | [...] | | | | mmol/L | [facility] | | | | [...] | | | FILTRATION | mL/min/1.73m2 | [facility] | | | [facility] | RATE,ESTIMATED | | MEDICAL | | | | mL/min/1.29g8Lrbe than | | CENTER - | | [...] ST. | [address] | [place] | [phone] | | [facility] | | [address] | | | - LABORATORY | | [...] | | | | M/uL | [facility] | [...] [address] | [place] | [phone] | | [facility] | | [address] | | | - LABORATORY | | [...] 7 | 7 - 18 mg/dL | [facility] | | | | | | [facility] | | | | | | MEDICAL | | | | | | CENTER - | | | | | | LABORATORY | | + + + + + + | Creatinine | 0.56 (L) | 0.60 - 1.30 | [facility] | | | | | mg/dL | [facility] | | | | | | MEDICAL | | | | | | CENTER - | | | | | | LABORATORY | | + + + + + + | eGFR if not | >60Comment: GLOMERULAR | >=60 | [facility] | | | | FILTRATION | mL/min/1.73m2 | [facility] | | | [facility] | RATE,ESTIMATED | | MEDICAL | | | | mL/min/1.12l3Osxh than | | CENTER - | | [...] | | ine Ratio | | | . [facility] | | | | | | [...] + | [facility] | [address] | [place] | [phone] | | [facility] | | [address] | | | - LABORATORY | | [...] [address] | [place] | [phone] | | [facility] | | [address] | | | - LABORATORY | | | | + + + + + Culture, Urine (08/09/2015 11:24 PM PST) + + + + + + | Component | Value | Ref Range | Performed | Pathologist | | | | | At | Signature | + + + + + + | Culture | No Growth | | MAGGI | | | | | [...] [address] | [place] | [phone] | | [facility] | | [address] | | | - LABORATORY | | [...] - 1.030 | [facility] | | | [place], | | | [facility] | | [...] + | [facility] | [address] | [place] | [phone] | | [facility] | | [address] | | | - LABORATORY | | [...] + | [facility] | [address] | [place] | [phone] | | [facility] | | [address] | | | - LABORATORY | | [...] | | | | | | [facility] | | | | | | MEDICAL [...] [address] | [place] | [phone] | | [facility] | | [address] | | | - LABORATORY | | [...] + | [facility] | [address] | [place] | [phone] | | [facility] | | [address] | | | - LABORATORY | | [...] 7 | 7 - 18 mg/dL | [facility] | | | | | | [facility] | | | | | | MEDICAL | | | | | | CENTER - | | | | | | LABORATORY | | + + + + + + | Creatinine | 0.59 (L) | 0.60 - 1.30 | [facility] | | | | | mg/dL | [facility] | | | | | | MEDICAL | | | | | | CENTER - | | | | | | LABORATORY | | + + + + + + | eGFR if not | >60Comment: GLOMERULAR | >=60 | [facility] | | | | FILTRATION | mL/min/1.73m2 | [facility] | | | [facility] | RATE,ESTIMATED | | MEDICAL | | | | mL/min/1.32p3Zcql than | | CENTER - | | [...] + | [facility] | [address] | [place] | [phone] | | [facility] | | [address] | | | - LABORATORY | | [...] [facility] | | | | | | [facility] | | | | | | MEDICAL | | | | | | CENTER - | | | | | | LABORATORY | | + + + + + + | RBC | 3.70 (L) | 4.30 - 5.70 | [facility] | | | | | M/uL | [facility] | [...] [address] | [place] | [phone] | | [facility] | | [address] | | | - LABORATORY | | | | + + + + + documented in this encounter Visit Diagnoses + + | Diagnosis | + + | Sepsis due to Escherichia coli (E. coli) ([facility]) - Primary Other septicemia due to | | gram-negative organism | + + | Alcoholism ([facility]) Other and unspecified alcohol dependence, [...] | | | (Daily), First dose on Wed | | | | | | [...] | | | | | | use [place] 10/325 if ordered. If | | | [...]
--- OUTSIDE RECORDS SUMMARY | ~2020-03-25 | XMS | Encounter Summary ---
Demographics + + + | Address | [address] | | | [place] [address] | + + + | Home Phone [...] Team Providers + +------+ + | Care Market Sales Manager Name | Role | Phone | [...] | | | | Dyana De [place], | [place], [place] | | | | | [place] [address] | [address] | | | | | [phone] | | | +--------+ + + + [...]
--- OUTSIDE RECORDS SUMMARY | ~2020-03-25 | XMS | Encounter Summary ---
Demographics + + + | Address | [address] | | | [place] [address] | + + + | Home Phone [...] Team Providers + +------+ + | Care Irrigation Equipment Mechanic Name | Role | Phone | + +------+ + | Anny Ennis DO | PCP | Unavailable | + +------+ + Encounter Details +--------+------+ + + + | Date | Type | Department | Care Team | Description | +--------+------+ + + + | 03/13/ | Lab | Laboratory at [facility] | | Cirrhosis (HCC) | | 2009 | | [address] | | | | | | [place], [place] | | | | | | [address] | | | | | | [phone] | | | +--------+------+ + + + [...] [facility] | [facility] | | [place] [address] | LABORATORY | | [place] [address] | | + + + + + + + + | Performing | Address | City/State/Zipcode | Phone Number | | Organization | | | | + + + + + | [facility] | [address] | [place] [address] | | | LABORATORY | | | [...] | LABORATORY | | | | at [facility], | | | | | | [place], [place]. | | | | + + + + + + + + | Specimen | + + | Blood - Blood | + + + + + | Narrative | Performed At | + + + | [facility] | [facility] | | [place] [address] | REGIONAL | | [place] [address] | LABORATORY | + + + + + + + + | Performing | Address | City/State/Zipcode | Phone Number | | Organization | | | | + + + + + | [facility] | [address] | [place] [address] | | | LABORATORY | | | [...] | | | | | validated by [facility]. | | | | | | Test performed by: | | | | | | [facility] - [facility] | | | | | | Services [address] | | | | | | [place] | | | | | | [address] | | | | + + + + + + + + | Specimen | + + | Urine - Urine | + + + + + + + | Performing | Address | City/State/Zipcode | Phone Number | | Organization | | | | + + + + + | [facility] | [address] | [place], [place] | | | [facility] | | [address] | | + + + + + [...] [facility] | | [place] [address] | REGIONAL | | [place] [address] | LABORATORY | + + + + + + + + | Performing | Address | City/State/Zipcode | Phone Number | | Organization | | | | + + + + + | [facility] | [address] | [place] [address] | | | LABORATORY | | | [...] At | + + + | [facility] [facility] | [place] | | [place] [address] | REGIONAL | | [place] [address] | LABORATORY | + + + + + + + + | Performing | Address | City/State/Zipcode | Phone Number | | Organization | | | | + + + + + | [facility] | [address] | [place] [address] | | | LABORATORY | | | [...] At | + + + | [facility] | [facility] | | [place] [address] | REGIONAL | | [place] [address] | LABORATORY | + + + + + + + + | Performing | Address | City/State/Zipcode | Phone Number | | Organization | | | | + + + + + | [facility] | [address] | [place] [address] | | | LABORATORY | | | [...] by | | | | | | [employer], | | | | | | | | | | | | [address] [facility] | | | | | | [place] [address] | | | | | | [phone] | | | | | | | | | | | | [email or web address], | | | | | | Magui [...] [facility] | [address] | [place], [place] | | | [facility] | | [address] | | + + + + + [...] At | + + + | [facility] | [facility] | | [facility] [address] | DEPARTMENT OF | | [place] [address] | PATHOLOGY | + + + + + + + + | Performing | Address | City/State/Zipcode | Phone Number | | Organization | | | | + + + + + | [facility] | [address] | [place] [address] | | | PATHOLOGY | [address] [...] DEPARTMENT OF | [address] | [place] [address] | | | PATHOLOGY | [address] [...] DEPARTMENT OF | [address] | [place] [address] | | | PATHOLOGY | [address] [...] | | | DEPARTMENT | | | LEB[place]ESE | | | OF | | | [...] | + + + + + | [facility] | [address] | [place] [address] | | | PATHOLOGY | [address] | | | + + + + + documented in this encounter Visit Diagnoses + + | Diagnosis | + + | 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
--- OUTSIDE RECORDS SUMMARY | ~2020-03-25 | XMS | Encounter Summary ---
Demographics + + + | Address | [address] | | | [place] [address] | + + + | Home Phone | | + + + | Preferred Language | Unknown | + + + | Marital Status | | + + + | Orthodoxy Affiliation | Unknown | + + + | Race | Unknown | + + + | Ethnic Group | Unknown | + + + Author + + + | Author | [facility] | | | and [place]leg[place] | + + + | Organization | [facility] | | | and [...] Providers + +------+ + | Care Home Economist Consumer Service Name | Role | Phone | + [...] | | | | [facility] | [place] [address] | | | | | [place] [address] | | | | | | [phone] | | | +--------+ + + + [...]
--- OUTSIDE RECORDS SUMMARY | ~2020-03-25 | XMS | Encounter Summary ---
Demographics + + + | Address | [address] | | | [place] [address] | + + + | Home Phone | | + + + | Preferred Language | Unknown | + + + | Marital Status | | + + + | Mandaen Affiliation | Unknown | + + + | Race | Unknown | + + + | Ethnic Group | Unknown | + + + Author + + + | Author | [facility] | | | and Olegarioana | + + + | Organization | [facility] | | | [...] Team Providers + +------+ + | Care Tax Form Preparer Name | Role | Phone | + +------+ + PCP | Unavailable | + +------+ + Encounter Details +--------+ + + + + | Date | Type | Department | Care Team | Description | +--------+ + + + + | 10/11/ | Hospital | [facility] | Conversion | Headache(784.0) | | 2015 | Encounter | CONVERSION [address] | Transaction, | | | | | [address] | Provider Unknown | | | | | [place], [place] | | | | | | [address] | (Fax) | | | | | [phone] | | | +--------+ + + + [...]
--- OUTSIDE RECORDS SUMMARY | ~2020-03-25 | XMS | Encounter Summary ---
Demographics + + + | Address | [address] | | | [place] [address] | + + + | Home Phone [...] Team Providers + +------+ + | Care Bullion Weigher Name | Role | Phone | + [...] | | | | [address] [place], | [place], [place] | | | | | [place] [address] | [address] | | | | | [phone] | | | +--------+ + + + [...]
--- OUTSIDE RECORDS SUMMARY | ~2020-03-25 | XMS | Encounter Summary ---
Demographics + + + | Address | [address] | | | [place] [address] | + + + | Home Phone [...] | + + +---------+ + | Teressa Lockettalberletitia | ECON | Unknown | + | + + +---------+ + Care Team Providers + +------+ + | Care Manager Willow Name | Role | Phone | + +------+ + PCP | Unavailable | + +------+ + Encounter Details +--------+ + + + + | Date | Type | Department | Care Team | Description | +--------+ + + + + | 11/22/ | Hospital | [facility] | HerminiaEliana | Seizure (HCC); | | 2015 - | Encounter | [facility] [address] | Subdural hematoma, | | | | [address] | [address] | post-traumatic, | | 11/26/ | | [place], [place] | [place] [address] | initial encounter | | 2015 | | [id number] | [phone] | (HCC); Traumatic | | | | [phone] | | brain injury, | | | [...] 11/26/14931 Date of Service: 11/26/14929 Status: Signed Custom Shoe Designer And Maker: Miguel Ángel John MD (Physician) [facility] Service: Hospitalist Discharge Summary Date of [...] H&P 11/23/14 0252 Expand All Collapse All [facility] Service: Hospitalist Admission History & Physical Date of Admission: 11/22/2014 Requesting Physician: [facility] Reason for Admission: SZ and SDH History Obtained From: patient CHIEF COMPLAINT: SZ and MARSH. HISTORY OF PRESENT ILLNESS The patient is a 53 y.o. male with significant past medical history. 53 year old male transferred to this facility from [facility] for further evalu ation. The [...] if needed. 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 Patient will need a talha to transport and staff is work ing on getting this jae presently. 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 11/26/14: patient still ready to d/c once the talha arrives. Nursing is looking into this f urther. The tsh is high but the T4 is in normal range. Would recc recheck and f/u with pcp in [facility] re. Recent Labs Lab 11/25/14 0529 11/23/14 0425 TSH -- 12.42* FREET4 0.9 -- Past Medical History Diagnosis Date Alcohol abuse Frequent falls Drug abuse Past Surgical History Procedure Laterality Date No past surgeries Craniotomy Right 10/11/2014 Procedure: CRANIOTOMY - FOR BLEED; Surgeon: Anthony Chong MD; Location: [facility] IN OR; Service: Neurosurgery; Laterality: Right; Craniectomy Right 10/11/2014 Procedure: CRANIECTOMY; Surgeon: Anthony Chong MD; Location: [facility] OR; Ser vice: Neurosurgery; Laterality: [...] (37.1 C) Oral 57 17 97 % 11/25/14 2020 115/81 mmHg 98.6 F (37 C) Oral [...] Value Units Date/Time CT head without contrast [[id number]] Resulted: 11/23/14719 Order Status: Completed Updated: 11/23/14724 Narrative: EVANS LOCKETTKATHI [address] HEAD WO CONTRAST 11/23/2014 7:13 AM INDICATION: Altered mental status, hemorrhage COMPARISON: 11/22/14 TECHNIQUE: CT scan of the head without contrast. 5-mm axial noncontrast images were acquir ed from the foramen magnum through the cranial vertex. FINDINGS: On service center assistant imaging, there is normal craniocervical alignment with [...] with MRI could be performed. Head Non-Con [[id number]] Resulted: 11/22/142119 Order Status: Completed Updated: 11/22/142124 Narrative: EVANS LOCKETTKATHI CT HEAD WO CONTRAST 11/22/2014 9:08 PM HISTORY: 53 years. Male. Subdural hematoma. TECHNIQUE: 5-mm axial noncontrast images were acquired from the foramen magnum through the cranial fidelina amadeo. COMPARISON: CT head noncontrast 11/22/[address] [facility] 10/14/2014 FINDINGS: An extensive right-sided craniectomy [...] of the head post right craniectomy. Disposition: halfway Condition: Stable Code Status: Full Code Discharge [...] orders. Aspiration precautions Fall precautions Follow up: [facility] [address] [facility] [id number] In 4 weeks to eval for replacement of skull flap or sooner if needed Nina Mcconnell MD [address] [place] [address] In 1 week or next available whichever [...] are the prescriptions that you need to grape picker. You may get the following medications from any pharmacy - HYDROcodone-acetaminophen 5-325 MG per tablet - levetiracetam 250 MG tablet - polyethylene glycol packet Discharge took 40inutes, to include final examination, discussion of admission, and prepara tion of prescriptions, instructions for on-going care, follow-up and documentation of discha rge summary. Miguel Ángel John MD 11/26/2014 Miguel Ángel Arauz MD - 11/25/2014 10:15 AM PDT Discharge Summaries by Miguel Ángel John MD at 11/25/14 1015 Author: Miguel Ángel John MD Service: Hospitalist Author Type: Physician Filed: 11/25/14 1016 Date of Service: 11/25/14 1015 Status: Signed Custom Shoe Designer And Maker: Miguel Ángel John MD (Physician) [facility] Service: Hospitalist Discharge Summary Date of [...] H&P 11/23/14 0252 Expand All Collapse All [facility] Service: Hospitalist Admission History & Physical Date of Admission: 11/22/2014 Requesting Physician: [facility] Reason for Admission: SZ and SDH History Obtained From: patient CHIEF COMPLAINT: SZ and MARSH. HISTORY OF PRESENT ILLNESS The patient is a 53 y.o. male with significant past medical history. 53 year old male transferred to this facility from [facility] for further evalu ation. The [...] if needed. 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 11/25/14: patient still ready to d/c once the talha arrives. Nursing is looking into this f urther. Past Medical History Diagnosis Date Alcohol abuse Frequent falls Drug abuse Past Surgical History Procedure Laterality Date No past surgeries Craniotomy Right 10/11/2014 Procedure: CRANIOTOMY - FOR BLEED; Surgeon: Anthony Chong MD; Location: [facility] OR; Service: Neurosurgery; Laterality: Right; Craniectomy Right 10/11/2014 Procedure: CRANIECTOMY; Surgeon: Anthony Chong MD; Location: [facility] OR; Ser vice: Neurosurgery; Laterality: [...] mmHg I&O Current Shift: I&O Yesterday: 11/24 0700 - 11/25 0659 In: 800 [P.O.:800] Out: - I&O Last 3 Shifts: 11/23 1900 - 11/25 0659 In: 1100 [P.O.:1100] Out: - Intake/Output Summary [...] Value Units Date/Time CT head without contrast [[id number]] Resulted: 11/23/14 0720 Order Status: Completed Updated: 11/23/14 0725 Narrative: EVANS MCGUIRE [address] HEAD WO CONTRAST 11/23/2014 7:13 AM INDICATION: Altered mental status, hemorrhage COMPARISON: 11/22/14 TECHNIQUE: CT scan of the head without contrast. 5-mm axial noncontrast images were acquir ed from the foramen magnum through the cranial vertex. FINDINGS: On service center assistant imaging, there is normal craniocervical alignment with [...] with MRI could be performed. Head Non-Con [[id number]] Resulted: 11/22/142119 Order Status: Completed Updated: 11/22/142124 Narrative: EVANS MCGUIRE CT HEAD WO CONTRAST 11/22/2014 9:08 PM HISTORY: 53 years. Male. Subdural hematoma. TECHNIQUE: 5-mm axial noncontrast images were acquired from the foramen magnum through the cranial fidelina amadeo. COMPARISON: CT head noncontrast 11/22/[address] [facility] 10/14/2014 FINDINGS: An extensive right-sided craniectomy [...] of the head post right craniectomy. Disposition: halfway Condition: Stable Code Status: Full Code Discharge [...] Aspiration precautions Fall precautions Follow up: [facility] [address] [facility] [place] [address] In 4 weeks to eval for replacement of skull flap or sooner if needed Nina Mcconnell MD [address] [facility] [place] [address] In 1 week or next available whichever [...] are the prescriptions that you need to grape picker. You may get the following medications [...] by Miguel Ángel John MD at 11/24/14 4336 Author: Miguel Ángel John MD Service: Hospitalist Author Type: Physician Filed: 11/24/14 1933 Date of Service: 11/24/14 0936 Status: Signed Custom Shoe Designer And Maker: Miguel Ángel John MD (Physician) [facility] Service: Hospitalist Discharge Summary Date of [...] H&P 11/23/14 0252 Expand All Collapse All [facility] Service: Hospitalist Admission History & Physical Date of Admission: 11/22/2014 Requesting Physician: [facility] Reason for Admission: SZ and SDH History Obtained From: patient CHIEF COMPLAINT: SZ and MARSH. HISTORY OF PRESENT ILLNESS The patient is a 53 y.o. male with significant past medical history. 53 year old male transferred to this facility from [facility] for further evalu ation. The [...] if needed. 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 Patient will need a talha to transport and staff is work ing on getting this jae presently. 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 Past Medical History Diagnosis Date Alcohol abuse Frequent falls Drug abuse Past Surgical History Procedure Laterality Date No past surgeries Craniotomy Right 10/11/2014 Procedure: CRANIOTOMY - FOR BLEED; Surgeon: Anthony Chong MD; Location: [facility] OR; Service: Neurosurgery; Laterality: Right; Craniectomy Right 10/11/2014 Procedure: CRANIECTOMY; Surgeon: Anthony Chong MD; Location: [facility]; Ser vice: Neurosurgery; Laterality: Right; [...] (37.1 C)] 98.2 F (36.8 C) (11/24 1541) BP: (94-114)/(59-75) 114/75 mmHg (11/24 1541) Heart Rate: [66-78] 78 (11/24 1541) Resp: [14-16] 16 (11/24 1540) SpO2: [97 [...] [Urine:375] Intake/Output Summary (Last 24 hours) at 11/24/141931 Last data filed at 11/24/14 1452 Gross [...] Value Units Date/Time CT head without contrast [[id number]] Resulted: 11/23/1420 Order Status: Completed Updated: 11/23/1425 Narrative: EVANS MCGUIRE [address] HEAD WO CONTRAST 11/23/2014 7:13 AM INDICATION: Altered mental status, hemorrhage COMPARISON: 11/22/14 TECHNIQUE: CT scan of the head without contrast. 5-mm axial noncontrast images were acquir ed from the foramen magnum through the cranial vertex. FINDINGS: On service center assistant imaging, there is normal craniocervical alignment with [...] with MRI could be performed. Head Non-Con [[id number]] Resulted: 11/22/142119 Order Status: Completed Updated: 11/22/142124 Narrative: EVANS MCGUIRE CT HEAD WO CONTRAST 11/22/2014 9:08 PM HISTORY: 53 years. Male. Subdural hematoma. TECHNIQUE: 5-mm axial noncontrast images were acquired from the foramen magnum through the cranial fidelina amadeo. COMPARISON: CT head noncontrast 11/22/[address] [facility] 10/14/2014 FINDINGS: An extensive right-sided craniectomy [...] of the head post right craniectomy. Disposition: halfway Condition: Stable Code Status: Full Code No discharge procedures on file. [facility] [address] [facility] [address] In 4 weeks to eval for replacement of skull flap or sooner if needed Nina Mcconnell MD [address] [place] [address] In 1 week or next available whichever [...] Progress Note by Mirtha Suh RN at 11/26/141713 Author: Mirtha Suh RN Service: (none) Author Type: Registered Nurse Filed: 11/26/141714 Date of Service: 11/26/141713 Status: Signed Custom Shoe Designer And Maker: Mirtha Suh RN (Registered Nurse) Discharge packet given to transport drivers, report on pt given, all questions answered. IV removed. Report called to Na GALARZA at [facility]. Patient left via transport to [facility]. onver a[place] Transaction, Provider Unknown - 11/26/2014 4:18 PM PDT Case Management by Josseline Mera RN at 11/26/141617 Author: Josseline Mera RN Service: (none) Author Type: Cook Chili Filed: 11/26/14 2891 Date of Service: 11/26/141617 Status: Signed Custom Shoe Designer And Maker: Josseline Mera RN (Cook Chili) Disposition: [facility] Transportation: [place] Medicaid-ambulance All orders, signed AVS, and prescriptions have been faxed All DC paperwork completed Patient and family in agreement with discharge plan Medicare important message (N/A): Josseline Mera onver alem Transaction, Provider Unknown - 11/26/2014 9:08 AM PDT Case Management by Josseline Mera RN at 11/26/14907 Author: Josseline Mera RN Service: (none) Author Type: Cook Chili Filed: 11/26/14 1320 Date of Service: 11/26/14907 Status: Addendum Custom Shoe Designer And Maker: Josseline Mera RN (Cook Chili) Related Notes: Original Note by Josseline Mera RN (Cook Chili) filed at 11/26/1454 Discharge Plans: Informed that helmet did not arrive on Wednesday as promised, thus pt has not been discharged. Call placed to [facility] and they are indicating it will be deli qamar by 10:30am today. [facility] informed of plans to DC today. Stretcher [employer] arranged for 2pm today. Paperwork completed, ready for faxing when helmet arrives. 11:00 Notified [place] Medicaid transport that patient has been discharged and his helmet is her e. 1317 [facility] ([phone]) and they are in route and (possibly here by 4:30), will call us when closer so we can have pt ready for transport. onver a[place] Transaction, Provider Unknown - 11/23/2014 9:16 AM PST Case Management by Josseline Mera RN at 11/23/14915 Author: Josseline Mera RN Service: (none) Author Type: Cook Chili Filed: 11/23/14 1212 Date of Service: 11/23/14915 Status: Addendum Custom Shoe Designer And Maker: Josseline Mera RN (Cook Chili) Related Notes: Original Note by Josseline Mera RN (Cook Chili) filed at 11/23/14 7060 Discharge Planning: Phoned Evans's father Jay Jay ([phone]) to discuss DC plans. He indicated that Evans has been living at [facility] and the plan is for [...] phone, ended the call. I did call [place] and they are willing to take Evans back when it is appropriate. Th ey are asking that we arrange transport because of his seizures and spontaneous activity it may not be safe, and that he does not have his helmet here. [place] Medicaid Transport ) contacted and they can provide stretcher transport but will need definite time to transport. onver a[place] Transaction, Provider Unknown - 11/23/2014 8:43 AM PST Nurse Progress Note by Misty Hays RN at 11/23/14 0843 Author: Misty Hays RN Service: (none) Author Type: Registered Nurse Filed: 11/23/14 1410 Date of Service: 11/23/14 0843 Status: Addendum Custom Shoe Designer And Maker: Misty Hays RN (Registered Nurse) Related Notes: Original Note by Misty Hays RN (Registered Nurse) filed at 1127 0845: Attempted to call Teressa ([phone]) back to give updates and ask pts [...] she had picked up the helmet from [place] and was not planning on co elizabeth to see the patient until Wednesday. Explained the importance of the helmet. Mother did no t seem to understand importance. onver a[place] Transaction, Provider Unknown - 11/23/2014 6:29 AM PST Progress Notes by Kyrie Payne RPH at 11/23/14628 Author: Kyrie Payne RPH Service: (none) Author Type: Pharmacist Filed: 11/23/14629 Date of Service: 11/23/14628 Status: Signed Custom Shoe Designer And Maker: Kyrie Payne RPH (Pharmacist) Scr = 0.6- pharmacy will renal dose as needed once weight is charted. docume nted in this encounter Consult Notes Anthony Chong MD - 11/23/2014 6:31 AM PST Consult* by Anthony Chong MD at 11/23/14630 Author: Anthony Chong MD Service: Neurosurgery Author Type: Physician Filed: 11/23/14646 Date of Service: 11/23/14630 Status: Signed Custom Shoe Designer And Maker: Anthony Chong MD (Physician) [facility] Service: Neurosurgery Consult Date of Admission: 11/22/2014 Requesting Physician: [facility] Reason for Admission: Transfer from [facility] with question of new SDH and seizure History Obtained From: chart review CHIEF COMPLAINT: seizure HISTORY OF PRESENT ILLNESS The patient is a 53 y.o. male s/p r cranietomy for SDH who is currently on keppra for seiz ures, with reported 5 minute tonic cloinic event yesterday at rehab. He was transferred to [facility] where a head ct was performed with question of new bleed. Transferred to [facility] for further evaluation REVIEW OF SYSTEMS Negative except for pertinent items noted in HPI. Past Medical History Diagnosis Date Alcohol abuse Frequent falls Drug abuse Past Surgical History Procedure Laterality Date No past surgeries Craniotomy Right 10/11/2014 Procedure: CRANIOTOMY - FOR BLEED; Surgeon: Anthony Chong MD; Location: [facility] IN OR; Service: Neurosurgery; Laterality: Right; Craniectomy Right 10/11/2014 Procedure: CRANIECTOMY; Surgeon: Anthony Chong MD; Location: [facility] OR; Ser vice: Neurosurgery; Laterality: Right; Immunizations: Influenza: Pneumoccocal: Allergies Allergen Reactions Penicillins Other (See Comments) [...] tablet by mouth daily. 30 tablet 0 History reviewed. No pertinent family history. History Social History Marital Status: Spouse Name: [...] on file Social History Narrative PHYSICAL EXAM BP 130/86 | Pulse 88 | Temp(Src) 98.5 F (36.9 C) (Oral) | Resp 16 | Ht 1.778 m (5' 10") | Wt | SpO2 97% Oriented to person Will follow commands, somewhat confused Prior paresis persists( may be slightly improved from my last exam in September) Incision c/d/ DATA Small r kfrontal SDH, this is not new and can be seen on the scan from 10/17. Currently 9x18 (9x14 in September) There is no associated mass effect. There is no midline shift and cisterns are patent( this is definitely imlproved from the September scan PROBLEM LIST Principal Problem: Subdural hematoma, post-traumatic Active Problems: Alcohol abuse Traumatic brain injury, closed Debility, unspecified Difficulty in walking Headache S/P craniotomy Seizures ASSESSMENT & PLAN 1. SDH- on comparision to prior scans his overally head ct looks improved( no further midli ne shift) the area of concern for SDh was there in September. It is 3mm larger which is a very small change in an already very small fluid collection. No role for surgical intervention. Would repeat another scan in 4 -6 weeks. If stable can perform cranioplasty 2. Seizure- known seizures and is on keppra. Consider neurology evaluation to ensure he is on appropriate seizure prophylaxis - patient is clear from a neurosurgical standpoint for transfer back to his SNF. He should followup in the neuroscience clinic in 4-6 weeks as detailed above Disposition: floor Code Status: Full Code Primary Care Physician: NINA Chong MD 11/23/2014 documented in th is encounter ED Notes Conversion Transaction, Provider Unknown - 11/22/2014 11:48 PM PSTFormatting of this note m ight be different from the original. ED Notes by Crissy Mar RN at 11/22/14 9549 Author: Crissy Mar RN Service: (none) Author Type: Registered Nurse Filed: 11/22/14 6079 Date of Service: 11/22/142347 Status: Signed Custom Shoe Designer And Maker: Crissy Mar RN (Registered Nurse) Pt appears to be resting more comfortably at this time. Pt in view of nurses station. Await ing room approval for surgical bed. Will continue to monitor. Crissy Mar RN 11/22/14 3840 onver alem Transaction, Provider Unknown - 11/22/2014 11:27 PM PST ED Notes by Crissy Mar RN at 11/22/14 3313 Author: Crissy Mar RN Service: (none) Author Type: Registered Nurse Filed: 11/22/142334 Date of Service: 11/22/142326 Status: Addendum Custom Shoe Designer And Maker: Crissy Mar RN (Registered Nurse) Related Notes: Original Note by Crissy Mar RN (Registered Nurse) filed at 11/22/142333 Pt frequently attempting to get out of bed without assistance, requiring direct observation . Pt countlessly reoriented to situation, but does not appear to understand. Hilary PAC noti fied of increased agitation. New orders received. Crissy Mar RN 11/22/142334 onver alem Transaction, Provider Unknown - 11/22/2014 11:20 PM PST ED Notes by Crissy Mar RN at 11/22/142319 Author: Crissy Mar RN Service: (none) Author Type: Registered Nurse Filed: 11/22/142321 Date of Service: 11/22/142319 Status: Signed Custom Shoe Designer And Maker: Crissy Mar RN (Registered Nurse) Pt requiring frequent observations. Pt found c leg over side rail. Upon asking patient if h e needed help, pt states "I need help getting into my bedroom over there (pointing outside o f room) Reoriented patient to current situation and need to stay in room in ER until we are able to get him to a new room upstairs. Pt verbalized understanding. Crissy Mar RN 11/22/142321 onver alem Transaction, Provider Unknown - 11/22/2014 10:56 PM PST ED Notes by Crissy Mar RN at 11/22/142255 Author: Crissy Mar RN Service: (none) Author Type: Registered Nurse Filed: 11/22/142258 Date of Service: 11/22/142255 Status: Signed Custom Shoe Designer And Maker: Crissy Mar RN (Registered Nurse) Pt appeared confused, stating "Can you help me, I need to get back to my other room so I ca n go to sleep." Reoriented pt to situation and room location. Pt able to state he was in [facility], year 2014. Pt continues to need reorientation to situation however. Linens changed, pt repositioned to comfort, lights dimmed. Explained plan of care to pt, pt verbalized understa nding. Pt in view of nurses station, will continue to monitor. Crissy Mar RN 11/22/142258 onver alem Transaction, Provider Unknown - 11/22/2014 10:33 PM PST ED Notes by Harjit Zeng RN at 11/22/142232 Author: Harjit Zeng RN Service: (none) Author Type: Registered Nurse Filed: 11/22/142232 Date of Service: 11/22/142232 Status: Signed Custom Shoe Designer And Maker: Harjit Zeng RN (Registered Nurse) Lab called for blood collection. Harjit Zeng RN 11/22/142232 onver alem Transaction, Provider Unknown - 11/22/2014 9:30 PM PST ED Notes by Crissy Mar RN at 11/22/142129 Author: Crissy Mar RN Service: (none) Author Type: Registered Nurse Filed: 11/22/142129 Date of Service: 11/22/142129 Status: Signed Custom Shoe Designer And Maker: Crissy Mar RN (Registered Nurse) Pt resting comfortably at this time, reports he just wants somewhere to lay his head and sl eep. No apparent distress noted. Call light within reach, pt positioned to comfort, lights d immed. Will continue to monitor. Pt oriented to situation, told not to get out of bed withou t assistance. Crissy Mar RN 11/22/142129 teffi Kohli - 11/22/2014 8:50 PM PSTFormatting of this note might be different from the o riginal. ED Provider Notes by Steffi Machado PA-C at 11/22/142049 Author: Steffi Machado PA-C Service: Emergency Department Author Type: Physician A ssistant - Certified Filed: 11/22/14 7763 Date of Service: 11/22/142049 Status: Attested Addendum Custom Shoe Designer And Maker: Steffi Machado PA-C (Physician Mixing Machine Tender Cork Gasket - Certified) Related Notes: Original Note by Steffi Machado PA-C (Physician Mixing Machine Tender Cork Gasket - Certified ) filed at 11/22/142240 Cosigner: Derian Mcfarlane DO at 11/23/14809 Attestation signed by Derian Mcfarlane DO at 11/23/14 08 I have reviewed the note and supervised the mid-level provider. I saw and evaluated the pat ient, participated in the management, and agree with the findings in the above note. We dis cussed the case and the treatment plan. The initial call for transfer regarding this patien t and have been involved with her care throughout emergency department stay. No further sei zure activity has been noted. I did speak with neurosurgery, Dr. Chong, and discussed th e case. His recommendation was for the patient to be admitted to the hospitalist and he anselmo l evaluate the patient and order a follow-up CT scan. Patient has been informed of need for admission. Procedures [facility] Department of Emergency Medicine HPI History of Present Illness Patient Identification Evans Mcguire is a 53 y.o. male. Patient information was obtained from patient, past medical records and transferring facili ty History/Exam limitations: none. Patient presented to the Emergency Department by: Chief Complaint Chief Complaint Patient presents with Seizures 53 year old male transferred to this facility from [facility] for further evalu ation. The patient suffered a seizure earlier today and presented to their ED. CT at their facility was non-diagnositic for acute pathology. He was transferred here as he had a sol craniotomy in September, after it was discovered that he had a SAH with midline shift. O n arrival, the patient is c/o MARSH that he rates a 6 on a scale of 1 to 10, but is awake and a lert. Denies any other symptoms. Past Medical History Diagnosis Date Alcohol abuse Frequent falls Drug abuse Past Surgical History Procedure Laterality Date No past surgeries Craniotomy Right 10/11/2014 Procedure: CRANIOTOMY - FOR BLEED; Surgeon: Anthony Chong MD; Location: [facility] IN OR; Service: Neurosurgery; Laterality: Right; Craniectomy Right 10/11/2014 Procedure: CRANIECTOMY; Surgeon: Anthony Chong MD; Location: [facility] OR; Ser vice: Neurosurgery; Laterality: Right; Prior to Admission medications Medication Sig Start Date End Date Taking? Authorizing Provider acetaminophen (TYLENOL) 650 MG CR tablet Take 650 mg by mouth every 8 (eight) hours as need ed for Pain. Yes Historical Provider HYDROcodone-acetaminophen (NORCO) 5-325 MG per tablet Take 1 tablet by mouth every 6 (six) hours as needed for Pain. Yes Historical Provider levETIRAcetam (KEPPRA) 1000 MG tablet Take 1 tablet by mouth 2 (two) times daily. 10/29/1408/04 Yes Cecilio Bravo MD Multiple Vitamin (MULTIVITAMIN) tablet Take 1 tablet by mouth daily. Yes Historical Provi francia QUEtiapine (SEROQUEL) 25 MG tablet Take 1 tablet by mouth nightly. 10/29/14 11/28/14 Yes Cecilio Bravo MD thiamine (VITAMIN B-1) 100 MG tablet Take 1 tablet by mouth daily. 10/29/14 11/28/14 Yes Cecilio Brvao MD Allergies Allergen Reactions Penicillins Other (See Comments) Unknown History Social History Marital Status: Spouse Name: [...] Concern Not on file Social History Narrative History reviewed. No pertinent family history. Review of Systems Constitutional: Negative for fever. Respiratory: Negative for shortness of breath. Cardiovascular: Negative for chest pain. Gastrointestinal: Negative for nausea, vomiting, abdominal pain, diarrhea and constipation. Neurological: Positive for focal weakness and headaches. Left upper extremity weakness - remote All other systems reviewed and are negative. Physical Exam Physical Exam BP 126/80 | Pulse 87 | Temp(Src) 100.3 F (37.9 C) (Oral) | Resp 22 | SpO2 97% Pulse Oximetry interpretation: Normal General: Alert, in no apparent distress with normal vitals as above. Eyes: Normal inspection, pupils equal and round Neck: Normal inspection Supple No lymphadenopathy No meningismus Cardiovascular: Rate and rhythm normal No murmurs Respiratory: Breath sounds normal bilaterally. Respirations are non-labored Abdomen: Soft, non-tender, non-distended No guarding or rebound Genitourinary: Deferred Rectal exam: Deferred Skin: Color normal Warm and dry No rash Neuro: Oriented to person, place and time with CN grossly intact. Weakness of LUE (remote ) with finger/nose intact on right but performed with difficulty on the right. Can elevate LUE but unable to hold it up against resistance. No weakness noted in lower extremities. ED Course Medical Decision Making and Emergency Department Course ED Department Course Dr. Mcfarlane spoke with Dr. Chong, neurosurgeon of record for the is patient and manager contact today. He advised that on arrival he is to receive a repeat CT, if normal admit to hospita list for 24 hour obs. If abnormal, we are to call him. I have ordered tylenol for the patient's headache. He is alert and oriented, reports that "I just want to go to sleep!" Patient is sleeping, hemodynamically stable. CT is negative for acute changes. Dr. Nesbitt he will notify Dr. Chong and I will admit the patient to the hospitalist service. Dr. Chong reports that he is avialiable for emergent problems tonight, o/w will see the patient in the morning and repeat the head CT. I have ordered admission labs which are pend ing. Spoke with Dr. Hope who agrees to admit the patient to the hospitalisit service. Patient is very agitated, keeps climbing out of bed. I have ordered 5mg of IV valium as re quested by the RN to sedate the patient. Records Reviewed Old medical records. Previous radiology studies. Labs & Radiology Results Laboratory Evaluation Results Procedure Component Value Ref Range Date/Time Comprehensive metabolic panel [[id number]] (Abnormal) Collected: 11/22/142043 Order Status: Completed Updated: 11/22/142318 Specimen Information: Blood SODIUM 138 135 - 143 mmol/L POTASSIUM 4.0 3.5 - 4.9 mmol/L CHLORIDE 105 99 - 109 mmol/L CO2 25 23 - 32 mmol/L ANION GAP AGAP 12 5 - 20 mmol/L GLUCOSE 114 (H) 65 - 99 mg/dL BUN 4 (L) 8 - 25 mg/dL CREATININE 0.73 0.70 - 1.30 mg/dL BUN/CREAT 5 CALCIUM 8.3 (L) 8.5 - 10.5 mg/dL TOTAL PROTEIN 7.7 6.3 - 8.2 g/dL Albumin 3.3 (L) 3.6 - 5.0 g/dL GLOBULIN 4.4 1.3 - 4.9 g/dL A/G 0.7 (L) 1.0 - 2.4 TBIL 0.3 0.1 - 1.5 mg/dL ALK PHOS 137 (H) 35 - 115 U/L AST 37 10 - 45 U/L ALT 37 10 - 65 U/L EGFR >60 >60 mL/min/1.73m2 CBC with differential [[id number]] (Abnormal) Collected: 11/22/142043 Order Status: Completed Updated: 11/22/142304 Specimen Information: Blood WBC 9.58 3.80 - 11.00 K/uL RBC 3.99 (L) 4.20 - 5.70 M/uL HGB 12.4 (L) 13.2 - 17.0 g/dL HCT 37.9 (L) 39.0 - 50.0 % MCV 95.2 80.0 - 100.0 fl MCH 31.0 27.0 - 34.0 pg MCHC 32.6 32.0 - 35.5 g/dL RDW SD 48.1 37 - 53 fl PLT 165 150 - 400 K/uL MPV 9.5 fl DIFF TYPE AUTOMATED NEUTROPHILS 79.71 % LYMPHOCYTES 12.56 % MONOCYTES 6.71 % EOSINOPHILS 0.69 % BASOPHILS 0.33 % NEUTROPHILS ABS 7.64 (H) 1.90 - 7.40 K/uL LYMPHOCYTES ABS 1.20 1.00 - 3.90 K/uL MONOCYTES ABS 0.64 0.00 - 0.80 K/uL EOSINOPHILS ABS 0.07 0.00 - 0.50 K/uL BASOPHILS ABS 0.03 0.00 - 0.10 K/uL POC clinitek 10 [[id number]] Collected: 11/22/148 Order Status: Completed Updated: 11/22/142249 Color, UA YELLOW Clarity, UA CLEAR Glucose, UA NEGATIVE NEGATIVE mg/dL Bilirubin, UA NEGATIVE NEGATIVE Ketones, UA NEGATIVE NEGATIVE mg/dL Spec Grav, UA 1.010 1.001 - 1.035 Blood, UA NEGATIVE NEGATIVE pH, UA 7.0 4.6 - 8.0 Protein, UA NEGATIVE NEGATIVE mg/dL Urobilinogen, UA 0.2 <1.1 mg/dL Nitrite, UA NEGATIVE NEGATIVE WBC, UA NEGATIVE NEGATIVE Radiology and EKG Evaluation Imaging Results CT Head Non-Con (Final result) Result time: 11/22/14 21:20:33 Final result by Rad Results In Rosalio (11/22/14 21:20:33) Impression: 1. Biconvex hyperdense extra-axial fluid collection suggesting a small subdural hematoma adjacent to the anterior margin of the right-sided craniectomy site currently measuring 9 x 18 mm compared with 9 x 14 mm 10/17/2014. This may indicate persistent venous oozing. It is not producing any significant mass effect. 2. Otherwise largely normal CT scan of the head post right craniectomy. Narrative: EVANS MCGUIRE CT HEAD WO CONTRAST 11/22/2014 9:08 PM HISTORY: 53 years. Male. Subdural hematoma. TECHNIQUE: 5-mm axial noncontrast images were acquired from the foramen magnum through the cranial fidelina amadeo. COMPARISON: CT head noncontrast 11/22/[address] [facility] 10/14/2014 FINDINGS: An extensive right-sided craniectomy [...] No lytic or blastic lesions are noted. Diagnosis & Disposition ED Diagnoses Final diagnoses Seizure S/P craniotomy Traumatic brain injury, closed, subsequent encounter Headache Disposition: ED Disposition Admit/Observation Bed request special needs: None Diagnosis?: Seizure, s/p craniotomy Steffi Machado PA-C 11/22/14 2153 Steffi Machado PA-C 11/22/14 2241 Steffi Machado PA-C 11/22/14 2356 Derian Mcfarlane DO 11/23/14 0810 Paula Leyva DO - 11/22/2014 8:37 PM PSTFormatting of this note might be different from the velasquez tubbs. ED Notes by Derian Mcfarlane DO at 11/22/142036 Author: Derian Mcfarlane DO Service: (none) Author Type: Physician Filed: 11/22/142036 Date of Service: 11/22/142036 Status: Signed Custom Shoe Designer And Maker: Derian Mcfarlane DO (Physician) Bed: 04 Expected date: Expected time: Means of arrival: Comments: onversion Trans action, Provider Unknown - 11/22/2014 7:04 PM PST ED Notes by Harjit Zeng RN at 11/22/14 1904 Author: Harjit Zeng RN Service: (none) Author Type: Registered Nurse Filed: 11/22/141910 Date of Service: 11/22/141903 Status: Signed Custom Shoe Designer And Maker: Harjit Zeng RN (Registered Nurse) Per Nae GALARZA at [facility] ED: Presented today after SNF reported possible seizure SNF report AMS recently Had craniectomy 09/2014 r/t bleed CT head: possible bleed, poor read due to patient movement. H/H 18g IV right AC Given: Matthews 5/325 Zofran 8mg IVP total Reglan 10mg IVP On thicken liquids at SNF Alert to self and place only Hx: hyponatremia, right craniotomy, delusional disorder, generalized pain, alcohol dependen cy. Current vitals: 140/93 HR 96, RR 16, 98% SaO2 Harjit Zeng RN 11/22/141910 docume nted in this encounter Miscellaneous Notes Plan of Care - Conversion Transaction, Provider Unknown - 11/24/2014 9:18 AM PST Plan of Care by Shona Moreno RN at 11/24/14917 Author: Shona Moreno RN Service: (none) Author Type: Registered Nurse Filed: 11/24/14920 Date of Service: 11/24/14917 Status: Signed Custom Shoe Designer And Maker: Shona Moreno RN (Registered Nurse) Safety measures maintained, room clutter free, bed in lowest position, side rails up, arm b ands on, O2/sx/AMBU at bedside, and call light in reach. Sitter, bed padded, decreased stimu lation, room darkened, andTele monitor pads replaced. lan o f Zunilda - Miguel Ángel John MD - 11/23/2014 7:52 PM PSTFormatting of this note might be dif ferent from the original. Plan of Care by Miguel Ángel John MD at 11/23/141951 Author: Miguel Ángel John MD Service: Hospitalist Author Type: Physician Filed: 11/23/141953 Date of Service: 11/23/141951 Status: Signed Custom Shoe Designer And Maker: Miguel Ángel John MD (Physician) Admitted this am. Pt seen notes reviewed. 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 I asked nursing and case mgt to l ook into records to see if pt getting this as ordered before admission and also who his neur ologist or managing provider is for seizures to decide if med change or increase needed or i f just not getting them so can see what can be done as further seizure prevention. lan of Care - Con version Transaction, Provider Unknown - 11/23/2014 7:45 AM PST Plan of Care by Misty Hays RN at 11/23/14744 Author: Misty Hays RN Service: (none) Author Type: Registered Nurse Filed: 11/23/14744 Date of Service: 11/23/14744 Status: Signed Custom Shoe Designer And Maker: Misty Hays RN (Registered Nurse) Daily care needs are met Progressing Patient's discharge needs are met Progressing Patient's pain/discomfort is manageable Progressing Patient will be injury free during hospitalization Progressing docume nted in this encounter Plan of [...] EXTERNAL | | | | performed at [facility], [address] | K/uL | LAB | | | | [address], | | | | | | [place] [address] | | | | + + + + + + | Red Blood | 3.88 (L)Comment: Testing | 4.20 - 5.70 | EXTERNAL | | | Cells | performed at [facility], [address] | M/uL | LAB | | | Counted | [address], | | | | | | [place] [address] | | | | + + + + + + | Hemoglobin | 12.3 (L)Comment: Testing | 13.2 - 17.0 | EXTERNAL | | | | performed at [facility], [address] | g/dL | LAB | | | | [address], | | | | | | [place] [address] | | | | + + + + + + | Hematocrit, | 36.2 (L)Comment: Testing | 39.0 - 50.0 % | EXTERNAL | | | POC | performed at [facility], [address] | | LAB | | | | [address], | | | | | | [place] [address] | | | | + + + + + + | MCV | 93.4Comment: Testing | 80.0 - 100.0 fl | EXTERNAL | | | | performed at [facility], [address] | | LAB | | | | [address], | | | | | | [place] [address] | | | | + + + + + + | MCH | 31.7Comment: Testing | 27.0 - 34.0 pg | EXTERNAL | | | | performed at [facility], [address] | | LAB | | | | [address], | | | | | | [place] [address] | | | | + + + + + + | MCHC | 34.0Comment: Testing | 32.0 - 35.5 | EXTERNAL | | | | performed at [facility], [address] | g/dL | LAB | | | | [address], | | | | | | [place] [address] | | | | + + + + + + | RDW-CV | 46.8Comment: Testing | 37 - 53 fl | EXTERNAL | | | | performed at [facility], [address] | | LAB | | | | [address], | | | | | | [place] [address] | | | | + + + + + + | Platelet | 161Comment: Testing | 150 - 400 K/uL | EXTERNAL | | | Count | performed at [facility], [address] | | LAB | | | Plasma | [address], | | | | | | [place] [address] | | | | + + + + + + | MPV | 8.7Comment: Testing | fl | EXTERNAL | | | | performed at [facility], [address] | | LAB | | | | [address], | | | | | | [place] [address] | | | | + + + + + + | Differentia | AUTOMATEDComment: | | EXTERNAL | | | l Type | Testing performed at | | LAB | | | | [facility], [address] | | | | | | [place] | | | | | | [address] | | | | + + + + + + | % Segmented | 64.56Comment: Testing | % | EXTERNAL | | | | performed at [facility], [address] | | LAB | | | Neutrophils | [address], | | | | | | [place] [address] | | | | + + + + + + | % | 18.74Comment: Testing | % | EXTERNAL | | | Lymphocytes | performed at [facility], [address] | | LAB | | | | [address], | | | | | | [place] [address] | | | | + + + + + + | % Monocytes | 11.05Comment: Testing | % | EXTERNAL | | | | performed at [facility], [address] | | LAB | | | | [address], | | | | | | [place] [address] | | | | + + + + + + | % | 4.94Comment: Testing | % | EXTERNAL | | | Eosinophils | performed at [facility], [address] | | LAB | | | | [address], | | | | | | [place] [address] | | | | + + + + + + | % Basophils | 0.71Comment: Testing | % | EXTERNAL | | | | performed at [facility], [address] | | LAB | | | | [address], | | | | | | [place] [address] | | | | + + + + + + | Absolute | 3.91Comment: Testing | 1.90 - 7.40 | EXTERNAL | | | Segmented | performed at [facility], [address] | K/uL | LAB | | | Neutrophils | [address], | | | | | | [place] [address] | | | | + + + + + + | Absolute | 1.14Comment: Testing | 1.00 - 3.90 | EXTERNAL | | | Lymphocytes | performed at [facility], [address] | K/uL | LAB | | | | [address], | | | | | | [place] [address] | | | | + + + + + + | Absolute | 0.67Comment: Testing | 0.00 - 0.80 | EXTERNAL | | | Monocytes | performed at [facility], [address] | K/uL | LAB | | | | [address], | | | | | | [place] [address] | | | | + + + + + + | Absolute | 0.30Comment: Testing | 0.00 - 0.50 | EXTERNAL | | | Eosinophils | performed at [facility], [address] | K/uL | LAB | | | | [address], | | | | | | [place] [address] | | | | + + + [...] | | | | | [place] [address] | | | | + + + [...] EXTERNAL | | | | performed at [facility], [address] | | LAB | | | | [address], | | | | | | [place] [address] | | | | + + + [...] | | | | | [place] [address] | | | | + + + + + + | K | 3.8Comment: Testing | 3.5 - 4.9 | EXTERNAL | | | | performed at [facility], [address] | mmol/L | LAB | | | | [address], | | | | | | [place] [address] | | | | + + + + + + | Cl | 104Comment: Testing | 99 - 109 mmol/L | EXTERNAL | | | | performed at [facility], [address] | | LAB | | | | [address], | | | | | | [place] [address] | | | | + + + + + + | CO2 | 27Comment: Testing | 23 - 32 mmol/L | EXTERNAL | | | | performed at [facility], [address] | | LAB | | | | [address], | | | | | | [place] [address] | | | | + + + + + + | Anion Gap | 9Comment: Testing | 5 - 20 mmol/L | EXTERNAL | | | | performed at [facility], [address] | | LAB | | | | [address], | | | | | | [place] [address] | | | | + + + + + + | Glucose, | 99Comment: Testing | 65 - 99 mg/dL | EXTERNAL | | | Fasting | performed at [facility], [address] | | LAB | | | [address], | | | | | | [place] [address] | | | | + + + + + + | BUN | 8Comment: Testing | 8 - 25 mg/dL | EXTERNAL | | | | performed at [facility], [address] | | LAB | | | | [address], | | | | | | [place] [address] | | | | + + + + + + | Creatinine | 0.62 (L)Comment: Testing | 0.70 - 1.30 | EXTERNAL | | | | performed at [facility], [address] | mg/dL | LAB | | | | [address], | | | | | | [place] [address] | | | | + + + + + + | BUN/Creatin | 13Comment: Testing | | EXTERNAL | | | ine Ratio | performed at [facility], [address] | | LAB | | | | [address], | | | | | | [place] [address] | | | | + + + + + + | Calcium | 8.9Comment: Testing | 8.5 - 10.5 | EXTERNAL | | | | performed at [facility], [address] | mg/dL | LAB | | | | [address], | | | | | | [place] [address] | | | | + + + + + + | Protein, | 6.7Comment: Testing | 6.3 - 8.2 g/dL | EXTERNAL | | | Total | performed at [facility], [address] | | LAB | | | [address], | | | | | | [place] [address] | | | | + + + + + + | Albumin | 3.2 (L)Comment: Testing | 3.6 - 5.0 g/dL | EXTERNAL | | | | performed at [facility], [address] | | LAB | | | | [address], | | | | | | [place] [address] | | | | + + + + + + | Globulin | 3.5Comment: Testing | 1.3 - 4.9 g/dL | EXTERNAL | | | | performed at [facility], [address] | | LAB | | | | [address], | | | | | | [place] [address] | | | | + + + + + + | A/G Ratio | 0.9 (L)Comment: Testing | 1.0 - 2.4 | EXTERNAL | | | | performed at [facility], [address] | | LAB | | | [address], | | | | | | [place] [address] | | | | + + + + + + | Bilirubin | 0.4Comment: Testing | 0.1 - 1.5 mg/dL | EXTERNAL | | | Total | performed at [facility], [address] | | LAB | | | | [address], | | | | | | [place] [address] | | | | + + + + + + | ALP, | 105Comment: Testing | 35 - 115 U/L | EXTERNAL | | | External | performed at [facility], [address] | | LAB | | | | [address], | | | | | | [place] [address] | | | | + + + + + + | AST | 26Comment: Testing | 10 - 45 U/L | EXTERNAL | | | | performed at [facility], [address] | | LAB | | | | [address], | | | | | | [place] [address] | | | | + + + + + + | ALT | 19Comment: Testing | 10 - 65 U/L | EXTERNAL | | | | performed at [facility], [address] | | LAB | | | | [address], | | | | | | [place] [address] | | | | + + + [...] [place], | | | | | | [place] [address] | | | | + + + [...] + +---------+ + + External Lab: [facility] (11/25/2014 5:29 AM PDT) + + + + + + | Component | Value | Ref Range | Performed | Pathologist | | | | | At | Signature | + + + + + + | WBC | 6.09Comment: Testing | 3.80 - 11.00 | EXTERNAL | | | | performed at [facility], [address] | K/uL | LAB | | | | [address], | | | | | | [place] [address] | | | | + + + + + + | Red Blood | 4.10 (L)Comment: Testing | 4.20 - 5.70 | EXTERNAL | | | Cells | performed at [facility], [address] | M/uL | LAB | | | Counted | [address], | | | | | | [place] [address] | | | | + + + + + + | Hemoglobin | 12.9 (L)Comment: Testing | 13.2 - 17.0 | EXTERNAL | | | | performed at [facility], [address] | g/dL | LAB | | | | [address], | | | | | | [place] [address] | | | | + + + + + + | Hematocrit, | 38.6 (L)Comment: Testing | 39.0 - 50.0 % | EXTERNAL | | | POC | performed at [facility], [address] | | LAB | | | | [address], | | | | | | [place] [address] | | | | + + + + + + | MCV | 94.2Comment: Testing | 80.0 - 100.0 fl | EXTERNAL | | | | performed at [facility], [address] | | LAB | | | | [address], | | | | | | [place] [address] | | | | + + + + + + | MCH | 31.4Comment: Testing | 27.0 - 34.0 pg | EXTERNAL | | | | performed at [facility], [address] | | LAB | | | | [address], | | | | | | [place] [address] | | | | + + + + + + | MCHC | 33.3Comment: Testing | 32.0 - 35.5 | EXTERNAL | | | | performed at [facility], [address] | g/dL | LAB | | | | [address], | | | | | | [place] [address] | | | | + + + + + + | RDW-CV | 46.8Comment: Testing | 37 - 53 fl | EXTERNAL | | | | performed at [facility], [address] | | LAB | | | | [address], | | | | | | [place] [address] | | | | + + + + + + | Platelet | 161Comment: Testing | 150 - 400 K/uL | EXTERNAL | | | Count | performed at [facility], [address] | | LAB | | | Plasma | [address], | | | | | | [place] [address] | | | | + + + + + + | MPV | 8.9Comment: Testing | fl | EXTERNAL | | | | performed at [facility], [address] | | LAB | | | | [address], | | | | | | [place] [address] | | | | + + + + + + | Differentia | AUTOMATEDComment: | | EXTERNAL | | | l Type | Testing performed at | | LAB | | | | [facility], [address] | | | | | | [place] | | | | | | [address] | | | | + + + + + + | % Segmented | 60.71Comment: Testing | % | EXTERNAL | | | | performed at [facility], [address] | | LAB | | | Neutrophils | [address], | | | | | | [place] [address] | | | | + + + + + + | % | 21.02Comment: Testing | % | EXTERNAL | | | Lymphocytes | performed at [facility], [address] | | LAB | | | | [address], | | | | | | [place] [address] | | | | + + + + + + | % Monocytes | 12.59Comment: Testing | % | EXTERNAL | | | | performed at [facility], [address] | | LAB | | | | [address], | | | | | | [place] [address] | | | | + + + + + + | % | 5.10Comment: Testing | % | EXTERNAL | | | Eosinophils | performed at [facility], [address] | | LAB | | | | [address], | | | | | | [place] [address] | | | | + + + + + + | % Basophils | 0.58Comment: Testing | % | EXTERNAL | | | | performed at [facility], [address] | | LAB | | | | [address], | | | | | | [place] [address] | | | | + + + + + + | Absolute | 3.70Comment: Testing | 1.90 - 7.40 | EXTERNAL | | | Segmented | performed at [facility], [address] | K/uL | LAB | | | Neutrophils | [address], | | | | | | [place] [address] | | | | + + + + + + | Absolute | 1.28Comment: Testing | 1.00 - 3.90 | EXTERNAL | | | Lymphocytes | performed at [facility], [address] | K/uL | LAB | | | | [address], | | | | | | [place] [address] | | | | + + + + + + | Absolute | 0.77Comment: Testing | 0.00 - 0.80 | EXTERNAL | | | Monocytes | performed at [facility], [address] | K/uL | LAB | | | | [address], | | | | | | [place] [address] | | | | + + + + + + | Absolute | 0.31Comment: Testing | 0.00 - 0.50 | EXTERNAL | | | Eosinophils | performed at [facility], [address] | K/uL | LAB | | | | [address], | | | | | | [place] [address] | | | | + + + + + + | Absolute | 0.04Comment: Testing | 0.00 - 0.10 | EXTERNAL | | | Basophils | performed at [facility], [address] | K/uL | LAB | | | | [address], | | | | | | [place] [address] | | | | + + + [...] | | | (REF) | performed at [facility], [address] | | LAB | | | | [address], | | | | | | [place] [address] | | | | + + + [...] EXTERNAL | | | | performed at [facility], [address] | | LAB | | | | [address], | | | | | | [place] [address] | | | | + + + [...] EXTERNAL | | | | performed at [facility], [address] | | LAB | | | | [facility], | | | | | | [place] [address] | | | | + + + [...] | | | | | [place] [address] | | | | + + + + + + | K | 3.8Comment: Testing | 3.5 - 4.9 | EXTERNAL | | | | performed at [facility], [address] | mmol/L | LAB | | | | [address], | | | | | | [place] [address] | | | | + + + + + + | Cl | 104Comment: Testing | 99 - 109 mmol/L | EXTERNAL | | | | performed at [facility], [address] | | LAB | | | | [address], | | | | | | [place] [address] | | | | + + + + + + | CO2 | 28Comment: Testing | 23 - 32 mmol/L | EXTERNAL | | | | performed at [facility], [address] | | LAB | | | | [address], | | | | | | [place] [address] | | | | + + + + + + | Anion Gap | 8Comment: Testing | 5 - 20 mmol/L | EXTERNAL | | | | performed at [facility], [address] | | LAB | | | | [address], | | | | | | [place] [address] | | | | + + + + + + | Glucose, | 107 (H)Comment: Testing | 65 - 99 mg/dL | EXTERNAL | | | Fasting | performed at [facility], [address] | | LAB | | | | [address], | | | | | | [place] [address] | | | | + + + + + + | BUN | 6 (L)Comment: Testing | 8 - 25 mg/dL | EXTERNAL | | | | performed at [facility], [address] | | LAB | | | | [address], | | | | | | [place] [address] | | | | + + + + + + | Creatinine | 0.59 (L)Comment: Testing | 0.70 - 1.30 | EXTERNAL | | | | performed at [facility], [address] | mg/dL | LAB | | | | [address], | | | | | | [place] [address] | | | | + + + + + + | BUN/Creatin | 10Comment: Testing | | EXTERNAL | | | ine Ratio | performed at [facility], [address] | | LAB | | | | [address], | | | | | | [place] [address] | | | | + + + + + + | Calcium | 9.2Comment: Testing | 8.5 - 10.5 | EXTERNAL | | | | performed at [facility], [address] | mg/dL | LAB | | | | [address], | | | | | | [place] [address] | | | | + + + + + + | Protein, | 7.0Comment: Testing | 6.3 - 8.2 g/dL | EXTERNAL | | | Total | performed at [facility], [address] | | LAB | | | [address], | | | | | | [place] [address] | | | | + + + + + + | Albumin | 3.4 (L)Comment: Testing | 3.6 - 5.0 g/dL | EXTERNAL | | | | performed at [facility], [address] | | LAB | | | | [address], | | | | | | [place] [address] | | | | + + + + + + | Globulin | 3.6Comment: Testing | 1.3 - 4.9 g/dL | EXTERNAL | | | | performed at [facility], [address] | | LAB | | | | [address], | | | | | | [place] [address] | | | | + + + + + + | A/G Ratio | 0.9 (L)Comment: Testing | 1.0 - 2.4 | EXTERNAL | | | | performed at [facility], [address] | | LAB | | | [address], | | | | | | [place] [address] | | | | + + + + + + | Bilirubin | 0.5Comment: Testing | 0.1 - 1.5 mg/dL | EXTERNAL | | | Total | performed at [facility], [address] | | LAB | | | | [address], | | | | | | [place] [address] | | | | + + + + + + | ALP, | 115Comment: Testing | 35 - 115 U/L | EXTERNAL | | | External | performed at [facility], [address] | | LAB | | | | [address], | | | | | | [place] [address] | | | | + + + + + + | AST | 27Comment: Testing | 10 - 45 U/L | EXTERNAL | | | | performed at [facility], [address] | | LAB | | | | [address], | | | | | | [place] [address] | | | | + + + + + + | ALT | 21Comment: Testing | 10 - 65 U/L | EXTERNAL | | | | performed at [facility], [address] | | LAB | | | | [address], | | | | | | [place] [address] | | | | + + + [...] | | | | | | at [facility], [address] | | | | | | [address], | | | | | | [place] [address] | | | | + + + [...] EXTERNAL | | | | performed at [facility], [address] | K/uL | LAB | | | | [address], | | | | | | [place] [address] | | | | + + + + + + | Red Blood | 4.01 (L)Comment: Testing | 4.20 - 5.70 | EXTERNAL | | | Cells | performed at [facility], [address] | M/uL | LAB | | | Counted | [address], | | | | | | [place] [address] | | | | + + + + + + | Hemoglobin | 12.3 (L)Comment: Testing | 13.2 - 17.0 | EXTERNAL | | | | performed at [facility], [address] | g/dL | LAB | | | | [address], | | | | | | [place] [address] | | | | + + + + + + | Hematocrit, | 37.8 (L)Comment: Testing | 39.0 - 50.0 % | EXTERNAL | | | POC | performed at [facility], [address] | | LAB | | | | [address], | | | | | | [place] [address] | | | | + + + + + + | MCV | 94.3Comment: Testing | 80.0 - 100.0 fl | EXTERNAL | | | | performed at [facility], [address] | | LAB | | | | [address], | | | | | | [place] [address] | | | | + + + + + + | MCH | 30.6Comment: Testing | 27.0 - 34.0 pg | EXTERNAL | | | | performed at [facility], [address] | | LAB | | | | [address], | | | | | | [place] [address] | | | | + + + + + + | MCHC | 32.4Comment: Testing | 32.0 - 35.5 | EXTERNAL | | | | performed at [facility], [address] | g/dL | LAB | | | | [address], | | | | | | [place] [address] | | | | + + + + + + | RDW-CV | 47.7Comment: Testing | 37 - 53 fl | EXTERNAL | | | | performed at [facility], [address] | | LAB | | | | [address], | | | | | | [place] [address] | | | | + + + + + + | Platelet | 153Comment: Testing | 150 - 400 K/uL | EXTERNAL | | | Count | performed at [facility], [address] | | LAB | | | Plasma | [address], | | | | | | [place] [address] | | | | + + + + + + | MPV | 9.0Comment: Testing | fl | EXTERNAL | | | | performed at [facility], [address] | | LAB | | | | [address], | | | | | | [place] [address] | | | | + + + + + + | Differentia | AUTOMATEDComment: | | EXTERNAL | | | l Type | Testing performed at | | LAB | | | | [facility], [address] | | | | | | [place] | | | | | | [address] | | | | + + + + + + | % Segmented | 70.29Comment: Testing | % | EXTERNAL | | | | performed at [facility], [address] | | LAB | | | Neutrophils | [address], | | | | | | [place] [address] | | | | + + + + + + | % | 14.74Comment: Testing | % | EXTERNAL | | | Lymphocytes | performed at [facility], [address] | | LAB | | | | [address], | | | | | | [place] [address] | | | | + + + + + + | % Monocytes | 10.97Comment: Testing | % | EXTERNAL | | | | performed at [facility], [address] | | LAB | | | | [address], | | | | | | [place] [address] | | | | + + + + + + | % | 3.52Comment: Testing | % | EXTERNAL | | | Eosinophils | performed at [facility], [address] | | LAB | | | | [address], | | | | | | [place] [address] | | | | + + + + + + | % Basophils | 0.48Comment: Testing | % | EXTERNAL | | | | performed at [facility], [address] | | LAB | | | | [address], | | | | | | [place] [address] | | | | + + + + + + | Absolute | 5.09Comment: Testing | 1.90 - 7.40 | EXTERNAL | | | Segmented | performed at [facility], [address] | K/uL | LAB | | | Neutrophils | [address], | | | | | | [place] [address] | | | | + + + + + + | Absolute | 1.07Comment: Testing | 1.00 - 3.90 | EXTERNAL | | | Lymphocytes | performed at [facility], [address] | K/uL | LAB | | | | [address], | | | | | | [place] [address] | | | | + + + + + + | Absolute | 0.79Comment: Testing | 0.00 - 0.80 | EXTERNAL | | | Monocytes | performed at [facility], [address] | K/uL | LAB | | | | [address], | | | | | | [place] [address] | | | | + + + + + + | Absolute | 0.26Comment: Testing | 0.00 - 0.50 | EXTERNAL | | | Eosinophils | performed at [facility], [address] | K/uL | LAB | | | | [address], | | | | | | [place] [address] | | | | + + + + + + | Absolute | 0.03Comment: Testing | 0.00 - 0.10 | EXTERNAL | | | Basophils | performed at [facility], [address] | K/uL | LAB | | | | [address], | | | | | | [place] [address] | | | | + + + [...] EXTERNAL | | | | performed at [facility], [address] | | LAB | | | | [address], | | | | | | [place] [address] | | | | + + + [...] EXTERNAL | | | | performed at [facility], [address] | | LAB | | | | [facility], | | | | | | [place] [address] | | | | + + + [...] | | | | | [place] [address] | | | | + + + + + + | K | 4.0Comment: Testing | 3.5 - 4.9 | EXTERNAL | | | | performed at [facility], [address] | mmol/L | LAB | | | | [address], | | | | | | [place] [address] | | | | + + + + + + | Cl | 102Comment: Testing | 99 - 109 mmol/L | EXTERNAL | | | | performed at [facility], [address] | | LAB | | | | [address], | | | | | | [place] [address] | | | | + + + + + + | CO2 | 26Comment: Testing | 23 - 32 mmol/L | EXTERNAL | | | | performed at [facility], [address] | | LAB | | | | [address], | | | | | | [place] [address] | | | | + + + + + + | Anion Gap | 11Comment: Testing | 5 - 20 mmol/L | EXTERNAL | | | | performed at [facility], [address] | | LAB | | | | [address], | | | | | | [place] [address] | | | | + + + + + + | Glucose, | 103 (H)Comment: Testing | 65 - 99 mg/dL | EXTERNAL | | | Fasting | performed at [facility], [address] | | LAB | | | | [address], | | | | | | [place] [address] | | | | + + + + + + | BUN | 6 (L)Comment: Testing | 8 - 25 mg/dL | EXTERNAL | | | | performed at [facility], [address] | | LAB | | | | [address], | | | | | | [place] [address] | | | | + + + + + + | Creatinine | 0.63 (L)Comment: Testing | 0.70 - 1.30 | EXTERNAL | | | | performed at [facility], [address] | mg/dL | LAB | | | | [address], | | | | | | [place] [address] | | | | + + + + + + | BUN/Creatin | 10Comment: Testing | | EXTERNAL | | | ine Ratio | performed at [facility], [address] | | LAB | | | | [address], | | | | | | [place] [address] | | | | + + + [...] | | | | | [place] [address] | | | | + + + + + + | Albumin | 3.5 (L)Comment: Testing | 3.6 - 5.0 g/dL | EXTERNAL | | | | performed at [facility], [address] | | LAB | | | | [address], | | | | | | [place] [address] | | | | + + + + + + | Globulin | 3.4Comment: Testing | 1.3 - 4.9 g/dL | EXTERNAL | | | | performed at [facility], [address] | | LAB | | | | [address], | | | | | | [place] [address] | | | | + + + + + + | A/G Ratio | 1.0Comment: Testing | 1.0 - 2.4 | EXTERNAL | | | | performed at [facility], [address] | | LAB | | | | [address], | | | | | | [place] [address] | | | | + + + + + + | Bilirubin | 0.5Comment: Testing | 0.1 - 1.5 mg/dL | EXTERNAL | | | Total | performed at [facility], [address] | | LAB | | | | [address], | | | | | | [place] [address] | | | | + + + + + + | ALP, | 103Comment: Testing | 35 - 115 U/L | EXTERNAL | | | External | performed at [facility], [address] | | LAB | | | | [address], | | | | | | [place] [address] | | | | + + + + + + | AST | 27Comment: Testing | 10 - 45 U/L | EXTERNAL | | | | performed at [facility], [address] | | LAB | | | | [address], | | | | | | [place] [address] | | | | + + + + + + | ALT | 23Comment: Testing | 10 - 65 U/L | EXTERNAL | | | | performed at [facility], [address] | | LAB | | | | [address], | | | | | | [place] [address] | | | | + + + [...] | | | | | | at [facility], [address] | | | | | | [address], | | | | | | [place] [address] | | | | + + + [...] magnum through the cranial vertex. FINDINGS: On service center assistant | | | imaging, there is normal [...] Conversion - 05/05/2019 12:20 AM PDT EVANS MCGUIRE1960 53 years | | MaleCT HEAD WO CONTRAST11/23/2014 7:13 AM INDICATION: Altered mental status, hemorrhage | | COMPARISON: 11/22/14 TECHNIQUE: CT scan of the head without contrast. 5-mm axial | | noncontrast images were acquired from the foramen magnum through the cranial vertex. | | FINDINGS: On service center assistant imaging, there is normal craniocervical alignment with [...] EXTERNAL | | | | performed at [facility], [address] | [address] | LAB | | | | [address], | | | | | | [place] [address] | | | | + + + + + + | Red Blood | 4.01 (L)Comment: Testing | 4.20 - 5.70 | EXTERNAL | | | Cells | performed at [facility], [address] | M/uL | LAB | | | Counted | [address], | | | | | | [place] [address] | | | | + + + + + + | Hemoglobin | 12.5 (L)Comment: Testing | 13.2 - 17.0 | EXTERNAL | | | | performed at [facility], [address] | g/dL | LAB | | | | [address], | | | | | | [place] [address] | | | | + + + + + + | Hematocrit, | 38.0 (L)Comment: Testing | 39.0 - 50.0 % | EXTERNAL | | | POC | performed at [facility], [address] | | LAB | | | | [address], | | | | | | [place] [address] | | | | + + + + + + | MCV | 94.9Comment: Testing | 80.0 - 100.0 fl | EXTERNAL | | | | performed at [facility], [address] | | LAB | | | [address], | | | | | | [place] [address] | | | | + + + + + + | MCH | 31.2Comment: Testing | 27.0 - 34.0 pg | EXTERNAL | | | | performed at [facility], [address] | | LAB | | | | [address], | | | | | | [place] [address] | | | | + + + + + + | MCHC | 32.9Comment: Testing | 32.0 - 35.5 | EXTERNAL | | | | performed at [facility], [address] | g/dL | LAB | | | | [address], | | | | | | [place] [address] | | | | + + + + + + | RDW-CV | 47.3Comment: Testing | 37 - 53 fl | EXTERNAL | | | | performed at [facility], [address] | | LAB | | | | [address], | | | | | | [place] [address] | | | | + + + + + + | Platelet | 171Comment: Testing | 150 - 400 K/uL | EXTERNAL | | | Count | performed at [facility], [address] | | LAB | | | Plasma | [address], | | | | | | [place] [address] | | | | + + + + + + | MPV | 8.8Comment: Testing | fl | EXTERNAL | | | | performed at [facility], [address] | | LAB | | | | [address], | | | | | | [place] [address] | | | | + + + + + + | Differentia | AUTOMATEDComment: | | EXTERNAL | | | l Type | Testing performed at | | LAB | | | | [facility], [address] | | | | | | [place] | | | | | | [address] | | | | + + + + + + | % Segmented | 67.69Comment: Testing | % | EXTERNAL | | | | performed at [facility], [address] | | LAB | | | Neutrophils | [address], | | | | | | [place] [address] | | | | + + + + + + | % | 20.09Comment: Testing | % | EXTERNAL | | | Lymphocytes | performed at [facility], [address] | | LAB | | | | [address], | | | | | | [place] [address] | | | | + + + + + + | % Monocytes | 9.27Comment: Testing | % | EXTERNAL | | | | performed at [facility], [address] | | LAB | | | | [address], | | | | | | [place] [address] | | | | + + + + + + | % | 2.66Comment: Testing | % | EXTERNAL | | | Eosinophils | performed at [facility], [address] | | LAB | | | | [address], | | | | | | [place] [address] | | | | + + + + + + | % Basophils | 0.29Comment: Testing | % | EXTERNAL | | | | performed at [facility], [address] | | LAB | | | | [address], | | | | | | [place] [address] | | | | + + + + + + | Absolute | 5.79Comment: Testing | 1.90 - 7.40 | EXTERNAL | | | Segmented | performed at [facility], [address] | K/uL | LAB | | | Neutrophils | [address], | | | | | | [place] [address] | | | | + + + + + + | Absolute | 1.72Comment: Testing | 1.00 - 3.90 | EXTERNAL | | | Lymphocytes | performed at [facility], [address] | K/uL | LAB | | | | [address], | | | | | | [place] [address] | | | | + + + + + + | Absolute | 0.79Comment: Testing | 0.00 - 0.80 | EXTERNAL | | | Monocytes | performed at [facility], [address] | K/uL | LAB | | | | [address], | | | | | | [place] [address] | | | | + + + + + + | Absolute | 0.23Comment: Testing | 0.00 - 0.50 | EXTERNAL | | | Eosinophils | performed at [facility], [address] | K/uL | LAB | | | | [address], | | | | | | [place] [address] | | | | + + + + + + | Absolute | 0.03Comment: Testing | 0.00 - 0.10 | EXTERNAL | | | Basophils | performed at [facility], [address] | K/uL | LAB | | | | [address], | | | | | | [place] [address] | | | | + + + [...] | | | | [facility], [address] [facility] | | | | | | [address], [place], [place] | | | | | | [address] | | | | + + + [...] EXTERNAL | | | | performed at [facility], [address] | | LAB | | | | [address], | | | | | | [place] [address] | | | | + + + [...] EXTERNAL | | | | performed at [facility], [address] | | LAB | | | | [address], | | | | | | [place] [address] | | | | + + + [...] | | | | | [place] [address] | | | | + + + + + + | K | 4.2Comment: Testing | 3.5 - 4.9 | EXTERNAL | | | | performed at [facility], [address] | mmol/L | LAB | | | | [address], | | | | | | [place] [address] | | | | + + + + + + | Cl | 102Comment: Testing | 99 - 109 mmol/L | EXTERNAL | | | | performed at [facility], [address] | | LAB | | | | [address], | | | | | | [place] [address] | | | | + + + [...] | | | | | [place] [address] | | | | + + + + + + | Glucose, | 113 (H)Comment: Testing | 65 - 99 mg/dL | EXTERNAL | | | Fasting | performed at [facility], [address] | | LAB | | | | [address], | | | | | | [place] [address] | | | | + + + + + + | BUN | 4 (L)Comment: Testing | 8 - 25 mg/dL | EXTERNAL | | | | performed at [facility], [address] | | LAB | | | | [address], | | | | | | [place] [address] | | | | + + + + + + | Creatinine | 0.60 (L)Comment: Testing | 0.70 - 1.30 | EXTERNAL | | | | performed at [facility], [address] | mg/dL | LAB | | | | [address], | | | | | | [place] [address] | | | | + + + + + + | BUN/Creatin | 7Comment: Testing | | EXTERNAL | | | ine Ratio | performed at [facility], [address] | | LAB | | | | [address], | | | | | | [place] [address] | | | | + + + + + + | Calcium | 9.4Comment: Testing | 8.5 - 10.5 | EXTERNAL | | | | performed at [facility], [address] | mg/dL | LAB | | | | [address], | | | | | | [place] [address] | | | | + + + + + + | Protein, | 7.3Comment: Testing | 6.3 - 8.2 g/dL | EXTERNAL | | | Total | performed at [facility], [address] | | LAB | | | | [address], | | | | | | [place] [address] | | | | + + + + + + | Albumin | 3.7Comment: Testing | 3.6 - 5.0 g/dL | EXTERNAL | | | | performed at [facility], [address] | | LAB | | | | [address], | | | | | | [place] [address] | | | | + + + + + + | Globulin | 3.6Comment: Testing | 1.3 - 4.9 g/dL | EXTERNAL | | | | performed at [facility], [address] | | LAB | | | | [address], | | | | | | [place] [address] | | | | + + + + + + | A/G Ratio | 1.0Comment: Testing | 1.0 - 2.4 | EXTERNAL | | | | performed at [facility], [address] | | LAB | | | | [address], | | | | | | [place] [address] | | | | + + + + + + | Bilirubin | 0.5Comment: Testing | 0.1 - 1.5 mg/dL | EXTERNAL | | | Total | performed at [facility], [address] | | LAB | | | | [address], | | | | | | [place] [address] | | | | + + + + + + | ALP, | 104Comment: Testing | 35 - 115 U/L | EXTERNAL | | | External | performed at [facility], [address] | | LAB | | | | [address], | | | | | | [place] [address] | | | | + + + + + + | AST | 36Comment: Testing | 10 - 45 U/L | EXTERNAL | | | | performed at [facility], [address] | | LAB | | | | [address], | | | | | | [place] [address] | | | | + + + + + + | ALT | 26Comment: Testing | 10 - 65 U/L | EXTERNAL | | | | performed at [facility], [address] | | LAB | | | | [address], | | | | | | [place] [address] | | | | + + + [...] | | | | | [place] [address] | | | | + + + [...] At | + + + | KRUEGER LEVYKATHI CT HEAD WO CONTRAST 11/22/2014 9:08 PM HISTORY: | | | 53 years. Male. Subdural hematoma. TECHNIQUE: 5-mm axial | | | noncontrast images were acquired from the foramen magnum through the | | | cranial vertex. COMPARISON: CT head noncontrast 11/22/2014 | | | performed at [facility] 10/14/2014 FINDINGS: An | | | [...] Marlon Santamaria - 05/05/2019 12:20 AM PDT EVANS LAGOS HEAD WO | | CONTRAST11/22/2014 9:08 PM HISTORY:53 years. Male. Subdural hematoma. TECHNIQUE:5-mm | | axial noncontrast images were acquired from the foramen magnum through the cranial | | vertex. COMPARISON:CT head noncontrast 11/22/[address] [facility]., | | 10/14/2014 FINDINGS:An extensive right-sided [...] | | + + External Lab: [facility] (11/22/2014 8:44 PM PST) + + + + + + | Component | Value | Ref Range | Performed | Pathologist | | | | | At | Signature | + + + + + + | WBC | 9.58Comment: Testing | 3.80 - 11.00 | EXTERNAL | | | | performed [place] [facility] [place] | K/uL | LAB | | | | [address];[place] | | | | | | [address] | | | | + + + + + + | Red Blood | 3.99 (L)Comment: Testing | 4.20 - 5.70 | EXTERNAL | | | Cells | performed [place] [facility] [place] | M/uL | LAB | | | Counted | [address];[place] | | | | | | [address] | | | | + + + + + + | Hemoglobin | 12.4 (L)Comment: Testing | 13.2 - 17.0 | EXTERNAL | | | | performed at [facility] [place] | g/dL | LAB | | | | [address];[place] | | | | | | [address] | | | | + + + + + + | Hematocrit, | 37.9 (L)Comment: Testing | 39.0 - 50.0 % | EXTERNAL | | | POC | performed at [facility] [place] | | LAB | | | | [address];[place] | | | | | | [address] | | | | + + + + + + | MCV | 95.2Comment: Testing | 80.0 - 100.0 fl | EXTERNAL | | | | performed at [facility] [place] | | LAB | | | | [address];[place] | | | | | | [address] | | | | + + + + + + | MCH | 31.0Comment: Testing | 27.0 - 34.0 pg | EXTERNAL | | | | performed at [facility] [place] | | LAB | | | | [address];[place] | | | | | | [address] | | | | + + + + + + | MCHC | 32.6Comment: Testing | 32.0 - 35.5 | EXTERNAL | | | | performed at [facility] [place] | g/dL | LAB | | | | [address];[place] | | | | | | [address] | | | | + + + + + + | RDW-CV | 48.1Comment: Testing | 37 - 53 fl | EXTERNAL | | | | performed at [facility] [place] | | LAB | | | | [address];[place] | | | | | | [address] | | | | + + + + + + | Platelet | 165Comment: Testing | 150 - 400 K/uL | EXTERNAL | | | Count | performed at [facility] [place] | | LAB | | | Plasma | [address];[place] | | | | | | [address] | | | | + + + + + + | MPV | 9.5Comment: Testing | fl | EXTERNAL | | | | performed at [facility] [place] | | LAB | | | | [address];[place] | | | | | | [address] | | | | + + + + + + | Differentia | AUTOMATEDComment: | | EXTERNAL | | | l Type | Testing performed at | | LAB | | | | [facility] [place];[place] [address] | | | | + + + + + + | % Segmented | 79.71Comment: Testing | % | EXTERNAL | | | | performed at [facility] [place];[address] | | LAB | | | Neutrophils | [address];[place] | | | | | | [id number] | | | | + + + + + + | % | 12.56Comment: Testing | % | EXTERNAL | | | Lymphocytes | [place] [facility] [place] | | [place] | | | | [address];[place] | | | | | | [address] | | | | + + + + + + | % Monocytes | 6.71Comment: Testing | % | EXTERNAL | | | | performed [place] [facility] [place] | | [place] | | | | [address];[place] | | | | | | [address] | | | | + + + + + + | % | 0.69Comment: Testing | % | EXTERNAL | | | Eosinophils | performed [place] [facility] [place] | | LAB | | | | [address];[place] | | | | | | [address] | | | | + + + + + + | % Basophils | 0.33Comment: Testing | % | EXTERNAL | | | | performed [place] [facility] [place] | | [place] | | | | [address];[place] | | | | | | [address] | | | | + + + + + + | Absolute | 7.64 (H)Comment: Testing | 1.90 - 7.40 | EXTERNAL | | | Segmented | performed [place] [facility] [place] | K/uL | LAB | | | Neutrophils | [address];[place] | | | | | | [address] | | | | + + + + + + | Absolute | 1.20Comment: Testing | 1.00 - 3.90 | EXTERNAL | | | Lymphocytes | performed [place] [facility] [place] | K/uL | LAB | | | | [address];[place] | | | | | | [address] | | | | + + + + + + | Absolute | 0.64Comment: Testing | 0.00 - 0.80 | EXTERNAL | | | Monocytes | performed [place] [facility] [place] | K/uL | LAB | | | | [address];[place] | | | | | | [address] | | | | + + + + + + | Absolute | 0.07Comment: Testing | 0.00 - 0.50 | EXTERNAL | | | Eosinophils | performed [place] [facility] [place] | K/uL | LAB | | | | [address];[place] | | | | | | [address] | | | | + + + + + + | Absolute | 0.03Comment: Testing | 0.00 - 0.10 | EXTERNAL | | | Basophils | performed at [facility] [place];[address] | K/uL | LAB | | | | [address];[place], [place] | | | | | | [address] | | | | + + + [...] | | | | performed at [facility] [place] | mmol/L | LAB | | | | [address];[place] | | | | | | [address] | | | | + + + + + + | K | 4.0Comment: Testing | 3.5 - 4.9 | EXTERNAL | | | | performed at [facility] [place] | mmol/L | LAB | | | | [address];[place] | | | | | | [address] | | | | + + + + + + | Cl | 105Comment: Testing | 99 - 109 mmol/L | EXTERNAL | | | | performed at [facility] [place] | | LAB | | | | [address];[place] | | | | | | [address] | | | | + + + + + + | CO2 | 25Comment: Testing | 23 - 32 mmol/L | EXTERNAL | | | | performed at [facility] [place] | | LAB | | | | [address];[place] | | | | | | [address] | | | | + + + + + + | Anion Gap | 12Comment: Testing | 5 - 20 mmol/L | EXTERNAL | | | | performed at [facility] [place] | | [place] | | | | [address];[place] | | | | | | [address] | | | | + + + + + + | Glucose, | 114 (H)Comment: Testing | 65 - 99 mg/dL | EXTERNAL | | | Fasting | [place] [facility] [place] | | [place] | | | | [address];[place] | | | | | | [address] | | | | + + + + + + | BUN | 4 (L)Comment: Testing | 8 - 25 mg/dL | EXTERNAL | | | | performed at [facility] [place] | | [place] | | | | [address];[place] | | | | | | [address] | | | | + + + + + + | Creatinine | 0.73Comment: Testing | 0.70 - 1.30 | EXTERNAL | | | | performed [place] [facility] [place] | mg/dL | LAB | | | | [address];[place] | | | | | | [address] | | | | + + + + + + | BUN/Creatin | 5Comment: Testing | | EXTERNAL | | | ine Ratio | performed [place] [facility] [place] | | [place] | | | | [address];[place] | | | | | | [address] | | | | + + + + + + | Calcium | 8.3 (L)Comment: Testing | 8.5 - 10.5 | EXTERNAL | | | | performed at [facility] [place] | mg/dL | LAB | | | | [address];[place] | | | | | | [address] | | | | + + + + + + | Protein, | 7.7Comment: Testing | 6.3 - 8.2 g/dL | EXTERNAL | | | Total | performed [place] [facility] [place] | | LAB | | | | [address];[place] | | | | | | [address] | | | | + + + + + + | Albumin | 3.3 (L)Comment: Testing | 3.6 - 5.0 g/dL | EXTERNAL | | | | performed at [facility] [place] | | LAB | | | | [address];[place] | | | | | | [address] | | | | + + + + + + | Globulin | 4.4Comment: Testing | 1.3 - 4.9 g/dL | EXTERNAL | | | | performed at [facility] [place] | | LAB | | | | [address];[place] | | | | | | [address] | | | | + + + + + + | A/G Ratio | 0.7 (L)Comment: Testing | 1.0 - 2.4 | EXTERNAL | | | | performed at [facility] [place] | | LAB | | | | [address];[place] | | | | | | [address] | | | | + + + + + + | Bilirubin | 0.3Comment: Testing | 0.1 - 1.5 mg/dL | EXTERNAL | | | Total | performed at [facility] [place] | | LAB | | | | [address];[place] | | | | | | [address] | | | | + + + + + + | ALP, | 137 (H)Comment: Testing | 35 - 115 U/L | EXTERNAL | | | External | performed [place] [facility] [place] | | LAB | | | | [address];[place] | | | | | | [address] | | | | + + + + + + | AST | 37Comment: Testing | 10 - 45 U/L | EXTERNAL | | | | performed at [facility] [place] | | LAB | | | | [address];[place] | | | | | | [address] | | | | + + + + + + | ALT | 37Comment: Testing | 10 - 65 U/L | EXTERNAL | | | | performed at [facility] [place] | | LAB | | | | [address];[place] | | | | | | [address] | | | | + + + [...] | | | | | | at [facility] [place];[place] [id number] | | | | + + + [...]
--- OUTSIDE RECORDS SUMMARY | ~2020-03-25 | XMS | Encounter Summary ---
Demographics + + + | Address | [address] | | | [place] [address] | + + + | Home Phone [...] Team Providers + +------+ + | Care Stencil Cutter Machine Name | Role | Phone | + +------+ + PCP | Unavailable | + +------+ + Encounter Details +--------+ + + + + | Date | Type | Department | Care Team | Description | +--------+ + + + + | 03/12/ | Hospital | [facility] | Conversion | Pain | | 2015 | Encounter | CONVERSION [address] | Transaction, | | | | | [address] | Provider Unknown | | | | | [place], [place] | [phone] | | | | | [address] | | | | | | [phone] | | | +--------+ + + + [...]
--- OUTSIDE RECORDS SUMMARY | ~2020-03-25 | XMS | Encounter Summary ---
Demographics + + + | Address | [address] | | | [place] [address] | + + + | Home Phone [...] Author + + + | Author | [facility] | + + + | Organization | [facility] | + + [...] Team Providers + +------+ + | Care Outpatient Pharmacy Manager Name | Role | Phone | [...] | | | | [place], | [place], [place] | | | | | [place] [address] | [address] | | | | | [phone] | | | +--------+ + + + [...]
--- OUTSIDE RECORDS SUMMARY | ~2020-03-25 | XMS | Encounter Summary ---
Demographics + + + | Address | [address] | | | [place] [address] | + + + | Home Phone [...] Author + + + | Author | [facility] | + + + | Organization | [facility] | + + + | Address [...] Team Providers + +------+ + | Care Wallpaper Scraper Name | Role | Phone | + [...] | | | | [place], | [place], [place] | office) | | | | [place] [address] | [address] | | | | | [phone] | | | +--------+ + + + [...]
--- OUTSIDE RECORDS SUMMARY | ~2020-03-25 | XMS | Encounter Summary ---
Demographics + + + | Address | [address] | | | [place] [address] | + + + | Home Phone | | + + + | Preferred Language | Unknown | + + + | Marital Status | Single | + + + | Rastafari Affiliation [...] Providers + +------+ + | Care Supervisor Building Maintenance Name | Role | Phone | + +------+ + PCP | Unavailable | + +------+ + Encounter Details +--------+ + + + + | Date | Type | Department | Care Team | Description | +--------+ + + + + | 02/17/ | Results | [facility] | Wade Villalta MD | | | 2002 | Only | & Rehabilitation | [address] | | | | | [address] | [address] | | | | | Mailcode: [address] | [place], [place] | | | | | [place] | [address] | | | | | [place], [place] | [phone] | | | | | [address] | | | | | | [phone] | | | +--------+ + + + [...] | | + +---------+ + + | [facility] DEPARTMENT OF | | | | | RADIOLOGY | | | | + +---------+ + + documented in this encounter Visit Diagnoses Not on filedocumented in this encounter"
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
--- OUTSIDE RECORDS SUMMARY | ~2020-03-25 | XMS | Encounter Summary ---
Demographics + + + | Address | [address] | | | [place] [address] | + + + | Home Phone | | + + + | Preferred Language | Unknown | + + + | Marital Status | | + + + | Hinduism Affiliation | Unknown | + + + | Race | Unknown | + + + | Ethnic Group | Unknown | + + + Author + + + | Author | [facility] | | | and Olegarioana | + + + | Organization | [facility] | | | [...] Team Providers + +------+ + | Care Coding Team Lead Name | Role | Phone | + [...] | | | | | [facility] | [place] [address] | | | | | [place] [address] | | | | | | [phone] | | | +--------+ + + + [...]
--- OUTSIDE RECORDS SUMMARY | ~2020-03-25 | XMS | Encounter Summary ---
Demographics + + + | Address | [address] | | | [place] [address] | + + + | Home Phone | | + + + | Preferred Language | Unknown | + + + | Marital Status | Single | + + + | Judaism Affiliation | Unknown | + + + | Race | White | + + + | Ethnic Group | Not or | + + + Author + + + | Author | [facility] | + + + | Organization | [facility] | + + + | [...] Team Providers + +------+ + | Care Landfill Gas Technician Name | Role | Phone | + +------+ + PCP | Unavailable | + +------+ + Encounter Details +--------+ + + + + | Date | Type | Department | Care Team | Description | +--------+ + + + + | 12/17/ | Abstract | [facility] | Azeem Dietrich | | | 2011 | | [place] [address] [id number] | | | | [address] | [place], [place] | | | | | Mailcode: [id number] | [id number] | | | | | [facility] | [phone] | | | | | and [address], | | | | | | [address] | | | | | | [place], [place] | | | | | | [address] | | | | | | [phone] | | | +--------+ + + + [...]
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
--- OUTSIDE RECORDS SUMMARY | ~2020-03-25 | XMS | Encounter Summary ---
Demographics + + + | Address | [address] | | | [place] [address] | + + + | Home Phone [...] Providers + +------+ + | Care Line Service Person Name | Role | Phone | + [...] | | | | | [facility] and | | | | | | Counseling [address] | | | | | | [address] [place], | | | | | | [place] [address] | | | | | | [phone] | | | | | | | [...] | | + +---------+ + + | [facility] DEPARTMENT OF | | | [...] | | + +---------+ + + | [facility] DEPARTMENT OF | | | | | [...] | | + +---------+ + + | [facility] DEPARTMENT OF | | | [...] | | + +---------+ + + | [facility] DEPARTMENT OF | | | [...]
--- OUTSIDE RECORDS SUMMARY | ~2020-03-25 | XMS | Clinical Summary ---
Demographics + + + | Address | [address] | | | [place] [address] | + + + | Home Phone | | + + + | Preferred Language | Unknown | + + + | Marital Status | Single | + + + | Presybeterian Affiliation [...] Providers + +------+ + | Care Ceramic Tile Installation Helper Name | Role | Phone | + +------+ + PCP | Unavailable | + +------+ + Source Comments BATSHEVA is fully live on both [facility] Ambulatory and [facility] InPatient.[facility] Allergies + + + + + [...] | | | + +--------+ +--------+-------+---------+--------+ | [facility] | | xxxx | Effect | [...] | 1961 | [phone] | [place] [address] | | | ryan | | | 0 (Home) | | + +--------+ +--------+ + + | Astrid Sánchez | Agency | Self | [birth year] | | [address] | | rachelle [place] | | | 1961 | [phone] | [place] [address] | | | | | | 0 (Home) | | + +--------+ +--------+ + +
--- OUTSIDE RECORDS SUMMARY | ~2020-03-25 | XMS | Encounter Summary ---
Demographics + + + | Address | [address] | | | [place] [address] | + + + | Home Phone [...] Team Providers + +------+ + | Care Rolled Gold Plater Name | Role | Phone | + +------+ + PCP | Unavailable | + +------+ + Encounter Details +--------+ + + + + | Date | Type | Department | Care Team | Description | +--------+ + + + + | 05/24/ | Hospital | [facility] | Conversion | Pain | | 2015 | Encounter | CONVERSION DEP [address] | Transaction, | | | | | [address] | Provider Unknown | | | | | [place], [place] | [phone] | | | | | [address] | | | | | | [phone] | | | +--------+ + + + [...]
--- OUTSIDE RECORDS SUMMARY | ~2020-03-25 | XMS | Encounter Summary ---
Demographics + + + | Address | [address] | | | [place] [address] | + + + | Home Phone [...] Team Providers + +------+ + | Care Dredge Lever Operator Name | Role | Phone | + +------+ + | Mason Oliveira DO | PCP | | + +------+ + Reason for Visit +--------+--------+ + | Reason | Onset | Comments | | | Date | | +--------+--------+ + | Other | 07/06/ | cancelling appointment | | | 2018 | | +--------+--------+ + Encounter Details +--------+ + + + + | Date | Type | Department | Care Team | Description | +--------+ + + + + | 07/06/ | Telephone | [facility] | Tony Yuan, | Other (cancelling | | 2018 | | Orthopedics [address] | appointment ) | | | | [address] | [facility] [address] | | | | | [place], [place] | [place] [address] | | | | | [address] | [phone] | | | | | [phone] | | | +--------+ + + + [...] + + documented as of this encounter Miscellaneous Notes Telephone Encounter - Malika Montoya - 07/06/2019 12:19 PM Tony calls from [facility] to cancel his appointment scheduled, she states he will follow up with Dr Schumacher . I asked if this was the plan after discharge as DR. Yuan likes to have a warm hand-off and a call to the provider the patient is going to see. I asked Liane if she knew if this dias ppened and she states " my boss told me to do this" I have a call out to Dr Schumacher's offic e to make sure he is willing to follow this patient post op. Appointment has been cancelled . documented in this e ncounter Plan of Treatment Not on filedocumented as of this encounter Visit Diagnoses Not on filedocumented in this encounter
--- OUTSIDE RECORDS SUMMARY | ~2020-03-25 | XMS | Encounter Summary ---
Demographics + + + | Address | [address] | | | [place] [address] | + + + | Home Phone [...] Team Providers + +------+ + | Care Photoengraving Proofer Name | Role | Phone | + +------+ + PCP | Unavailable | + +------+ + Encounter Details +--------+ + + + + | Date | Type | Department | Care Team | Description | +--------+ + + + + | 09/04/ | Hospital | [facility] | Conversion | Pain | | 2014 | Encounter | CONVERSION [address] | Transaction, | | | | | [address] | Provider Unknown | | | | | [place], [place] | [phone] | | | | | [address] | | | | | | [phone] | | | +--------+ + + + [...]
--- OUTSIDE RECORDS SUMMARY | ~2020-03-25 | XMS | Encounter Summary ---
Demographics + + + | Address | [address] | | | [place] [address] | + + + | Home Phone [...] Team Providers + +------+ + | Care Pipe Fitter Gas Pipe Name | Role | Phone | + [...]
--- OUTSIDE RECORDS SUMMARY | ~2020-03-25 | XMS | Encounter Summary ---
Demographics + + + | Address | [address] | | | [place] [address] | + + + | Home Phone [...] Team Providers + +------+ + | Care Mountain [place] Glacier Guide Name | Role | Phone | + [...] | Transcriptions | + + | Interface, Cia Agent In - 04/16/2006 1:08 AM PDT | | [address] | | [place], [place] [id number] | | [facility] RECORDMed Rec No.: | | [id number] Date: [...] be done | | [place]. We were happy to splint him if [...] isgoing to follow up | | in [place], although, if cares to come back here, wewill be happy to see him in Dr. | | Rodo Maldonado, adult orthopedic clinic.Wade Villalta M.D.FARTUN/ellyoD: 02/17/2003T: | | 02/17/2003 12:31 [id number] | |OPERATIONS PERFORMED: The patient was taken [...] is | |going to follow up in [place], although, if cares to come back here, we | |will be happy to see him in Dr. Rodo Maldonado, adult orthopedic clinic. | | | | | | | |Wade Villalta M.D. | | | |Donaldo | | | | P | |[id number] | + + documented in this encounter Visit Diagnoses Not on filedocumented in this encounter"
--- OUTSIDE RECORDS SUMMARY | ~2020-03-25 | XMS | Encounter Summary ---
Demographics + + + | Address | [address] | | | [place] [address] | + + + | Home Phone [...] Team Providers + +------+ + | Care Testing Analyst Name | Role | Phone | [...] Ave | | | | | | [facility] [place] | Mailcode: | | | | | | [address] | [facility] | | | | | | Phone: | for Health | | | | | | [phone] | and Healing, | | | | | | Fax: | Building 2 | | | | | | [phone] | [place], [place] | | | | | | | [address] | | | | | | | Phone: | | | | | | | [phone] | | | | | | | Fax: | | | | | | | [phone] | +--------+--------+ + + + + Encounter Details +--------+---------+ + + + | Date | Type | Department | Care Team | Description | +--------+---------+ + + + | 03/13/ | Office | Digestive Health | Azeem Dietrich | Cirrhosis (HCC); | | 2009 | Visit | [facility] at [facility] [address] | E, MD [address] | Esophageal varices | | | | [address] | Ave [place], [place] | (HCC) | | | | Mailcode: [facility] | [address] | | | | | [facility] | [phone] | | | | | and [address], | | | | | | Building [address] | | | | | | [place], [place] | | | | | | [address] | | | | | | [phone] | | | +--------+---------+ + + + [...] [facility] | REGIONAL | | [place] [address] [facility] | LABORATORY | | [place] [address] | | + + + + + + + + | Performing | Address | City/State/Zipcode | Phone Number | | Organization | | | | + + + + + | [facility] | [address] | [place] [address] | | | LABORATORY | | | [...] | LABORATORY | | | | at [facility] [place], | | | | | | [place], [place]. | | | | + + + + + + + + | Specimen | + + | Blood - Blood | + + + + + | Narrative | Performed At | + + + | [facility] | [facility] | | [facility] [place] [address] | [facility] | | [place] [address] | LABORATORY | + + + + + + + + | Performing | Address | City/State/Zipcode | Phone Number | | Organization | | | | + + + + + | [facility] | [address] | [place] [address] | | | LABORATORY | | | [...] | | | | | | [facility] | | | | | | Services [address] [place] [address] | | | | | | [place] | | | | | | [address] | | | | + + + + + + + + | Specimen | + + | Urine - Urine | + + + + + + + | Performing | Address | City/State/Zipcode | Phone Number | | Organization | | | | + + + + + | [facility] | [address] | [place], [place] | | | UNIV [facility] - MANUAL | | [address] | | + + + + + [...] At | + + + | [facility] [facility]) [facility] | M[place] | | [place] [address] | [facility] | | [place] [address] | LABORATORY | + + + + + + + + | Performing | Address | City/State/Zipcode | Phone Number | | Organization | | | | + + + + + | [facility] | [address] | [place] [address] | | | LABORATORY | | | [...] At | + + + | [facility] [facility] | [facility] | | [place] [address] | REGIONAL | | [place] [address] | LABORATORY | + + + + + + + + | Performing | Address | City/State/Zipcode | Phone Number | | Organization | | | | + + + + + | [facility] | [address] | [place] [address] | | | LABORATORY | | | [...] At | + + + | [facility] ([facility] | [facility] | | Permanente [address] | [facility] | | [place] [address] | LABORATORY | + + + + + + + + | Performing | Address | City/State/Zipcode | Phone Number | | Organization | | | | + + + + + | [facility] | [address] | [place] [address] | | | LABORATORY | | | [...] by | | | | | | [employer], | | | | | | | | | | | | [address] [facility] | | | | | | [facility] [address] | | | | | | [phone] | | | | | | | | | | | | [email or web address], | | | | | | Magui Lopez MD - | | | | | | Mahnaz. Director | | | | + + + + + + + + | Specimen | + + | Blood - Blood | + + + + + + + | Performing | Address | City/State/Zipcode | Phone Number | | Organization | | | | + + + + + | [facility] | [address] | [place], [place] | | | UN[facility] INTFC | | [address] | | + + + + + [...] [facility] | [facility] | | [place] [address] [facility] | DEPARTMENT OF | | [place] [address] | PATHOLOGY | + + + + + + + + | Performing | Address | City/State/Zipcode | Phone Number | | Organization | | | | + + + + + | [facility] DEPARTMENT OF | [address] | [place] [address] | | | PATHOLOGY | [address] [...] | + + + + + | [facility] DEPARTMENT | [address] | [place] [address] | | | PATHOLOGY | [address] | | | + + + + + INR (03/13/2010 9:50 AM PDT) + + + + + + | Component | Value | Ref Range | Performed | Pathologist | | | | | At | Signature | + + + + + + | INR | 1.19Comment: | 0.90 - 1.20 INR | [facility] | | | | INR Therapeutic ranges [...] HEALTH SERVICES | [address] | [place] [address] | | | PATHOLOGY | [address] [...] | | | DEPARTMENT | | | [place] | | | OF | | | [...] HEALTH SERVICES | [address] | [place] [address] | | | PATHOLOGY | [address] [...]
--- OUTSIDE RECORDS SUMMARY | ~2020-03-25 | XMS | Encounter Summary ---
Demographics + + + | Address | [address] | | | [place] [address] | + + + | Home Phone [...] Author + + + | Author | [facility] | + + + | Organization | [facility] | + + + | Address [...] Providers + +------+ + | Care Power Machine Operator Name | Role | Phone | + +------+ + PCP | Unavailable | + +------+ + Encounter Details +--------+ + + + + | Date | Type | Department | Care Team | Description | +--------+ + + + + | 12/17/ | Abstract | Digestive Health | Azeem Dietrich | | | 2011 | | [place] [address] [address] | E, [address] | | | | | [address] | [place], [place] | | | | | Mailcode: OC8D | [address] | | | | | [facility] | [phone] | | | | | and [address], | | | | | | [address] | | | | | | [place], [place] | | | | | | [address] | | | | | | [phone] | | | +--------+ + + + [...]
--- OUTSIDE RECORDS SUMMARY | ~2020-03-25 | XMS | Encounter Summary ---
Demographics + + + | Address | [address] [facility] | | | [place] [address] | + + + | Home Phone [...] + + + | Author | [facility] | + + + | Organization | [facility] | + + + | [...] Team Providers + +------+ + | Care Saxophone Teacher Name | Role | Phone | [...] Ave | | | | | | [facility] [place] | Mailcode: | | | | | | [address] | [facility] | | | | | | Phone: | for Health | | | | | | [phone] | and Healing, | | | | | | Fax: | Building 2 | | | | | | [phone] | [place], [place] | | | | | | | [address] | | | | | | | Phone: | | | | | | | [phone] | | | | | | | Fax: | | | | | | | [phone] | +--------+--------+ + + + + Encounter [...] | | [address] | Ave [place], [place] | (HCC) | | | | Mailcode: OC8D | [address] | | | | | [facility] | [phone] | | | | | and [address], | | | | | | [address] | | | | | | [place], [place] | | | | | | [address] | | | | | | [phone] | | | +--------+---------+ + + + [...] [facility] | REGIONAL | | [place] [address] [facility] | LABORATORY | | [place] [address] | | + + + + + + + + | Performing | Address | City/State/Zipcode | Phone Number | | Organization | | | | + + + + + | [facility] | [address] | [place] [address] | | | LABORATORY | | | [...] | LABORATORY | | | | at [facility], | | | | | | [place], [place]. | | | | + + + + + + + + | Specimen | + + | Blood - Blood | + + + + + | Narrative | Performed At | + + + | [facility] | [facility] | | [place] [address] | [facility] | | [place] [address] | LABORATORY | + + + + + + + + | Performing | Address | City/State/Zipcode | Phone Number | | Organization | | | | + + + + + | [facility] | [address] | [place] [address] | | | LABORATORY | | | [...] | | | | | | [facility] | | | | | | Services [address] [place] [address] | | | | | | [place] | | | | | | [address] | | | | + + + + + + + + | Specimen | + + | Urine - Urine | + + + + + + + | Performing | Address | City/State/Zipcode | Phone Number | | Organization | | | | + + + + + | [facility] | [address] | [place], [place] | | | UN[facility] - MANUAL | | [address] | | + + + + + [...] At | + + + | [facility] [address] [facility] | MUNIR | | [place] [address] | [facility] | | [place] [address] | LABORATORY | + + + + + + + + | Performing | Address | City/State/Zipcode | Phone Number | | Organization | | | | + + + + + | [facility] | [address] | [place] [address] | | | LABORATORY | | | [...] At | + + + | [facility] [address] [facility] | [facility] | | [place] [address] | REGIONAL | | [place] [address] | LABORATORY | + + + + + + + + | Performing | Address | City/State/Zipcode | Phone Number | | Organization | | | | + + + + + | [facility] | [address] | [place] [address] | | | LABORATORY | | | [...] At | + + + | [facility] | [facility] | | Permanente [address] [facility] | [facility] | | [place] [address] | LABORATORY | + + + + + + + + | Performing | Address | City/State/Zipcode | Phone Number | | Organization | | | | + + + + + | [facility] | [address] | [place] [address] | | | LABORATORY | | | [...] by | | | | | | [employer], | | | | | | | | | | | | [address] | | | | | | [facility] [address] | | | | | | [phone] | | | | | | | | | | | | [email or web address], | | | | | | Magui [...] [facility] | [address] | [place], [place] | | | [facility] | | [address] | | + + + + + [...] [facility] | [facility] | | [place] [address] [facility] | DEPARTMENT OF | | [place] [address] | PATHOLOGY | + + + + + + + + | Performing | Address | City/State/Zipcode | Phone Number | | Organization | | | | + + + + + | [facility] DEPARTMENT OF | [address] | [place] [address] | | | PATHOLOGY | [address] [...] + + | [facility] DEPARTMENT | [address] | [place] [address] | | | PATHOLOGY | [address] [...] | + + + + + | [facility] | [address] | [place] [address] | | | PATHOLOGY | [address] [...] | | | DEPARTMENT | | | [place] | | | OF | | | [...] | + + + + + | [facility] | [address] | [place] [address] | | | PATHOLOGY | [address] [...]
--- OUTSIDE RECORDS SUMMARY | ~2020-03-25 | XMS | Encounter Summary ---
Demographics + + + | Address | [address] | | | [place] [address] | + + + | Home Phone [...] Team Providers + +------+ + | Care Hand Slitter Name | Role | Phone | + +------+ + PCP | Unavailable | + +------+ + Encounter Details +--------+ + + + + | Date | Type | Department | Care Team | Description | +--------+ + + + + | 03/25/ | Abstract | Digestive Health | Azeem Dietrich | | | 2010 | | [place] [address] [address] | E, [address] | | | | [address] | [place], [place] | | | | | Mailcode: OC8D | [address] | | | | | [facility] | [phone] | | | | | and [address], | | | | | | [address] | | | | | | [place], [place] | | | | | | [address] | | | | | | [phone] | | | +--------+ + + + [...]
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
== END 2020-03-25 23:55 | disposition home or self-care (01) ==
LOC: ED 22:20
DX: G89.29 Other chronic pain (principal); M54.5 Low back pain; Z88.0 Allergy status to penicillin
CPT/HCPCS: 99283

== ENCOUNTER 2020-04-05 17:18 | Emergency (ER) | payer OTHER ==
[~2020-04-05] VITALS: Ht 177.8 cm; Wt 122.5 kg
--- OUTSIDE RECORDS SUMMARY | ~2020-04-05 | XMS | Encounter Summary ---
Demographics + + + | Address | [address] | | | [place] [address] | + + + | Home Phone | | + + + | Preferred Language | Unknown | + + + | Marital Status | Single | + + + | Pentecostalism Affiliation | Unknown | + + + | Race | White | + + + | Ethnic Group | Not or | + + + Author + + + | Author | [facility] | + + + | Organization | [facility] | + + + | Address | [...] Team Providers + +------+ + | Care Solar Energy Engineer Name | Role | Phone | [...] | | | | [place] [address] [place], | [place], [place] | | | | | [place] [address] | [address] | | | | | [phone] | | | +--------+ + + + [...]
--- OUTSIDE RECORDS SUMMARY | ~2020-04-05 | XMS | Clinical Summary ---
Demographics + + + | Address | [address] | | | [place] [address] | + + + | Home Phone | | + + + | Preferred Language | Unknown | + + + | Marital Status | Single | + + + | Methodist Affiliation | Unknown | + + + [...] Team Providers + +------+ + | Care Sample Maker Hand Name | Role | Phone | + +------+ + PCP | Unavailable | + +------+ + Source Comments BATSHEVA is fully live on both [facility] Ambulatory and [facility] InPatient.[facility] Allergies + + + + + + [...] | | | + +--------+ +--------+-------+---------+--------+ | [facility] | | xxxx | Effect | [...] | 1961 | [phone] | [place] [address] | | | ryan | | | 0 (Home) | | + +--------+ +--------+ + + | Astird Sánchez | Agency | Self | [birth year] | | [address] | | [address] [place] | | | 1961 | [phone] | [place] [address] | | | | | | 0 (Home) | | + +--------+ +--------+ + +
--- OUTSIDE RECORDS SUMMARY | ~2020-04-05 | XMS | Encounter Summary ---
Demographics + + + | Address | [address] | | | [place] [address] | + + + | Home Phone | | + + + | Preferred Language | Unknown | + + + | Marital Status | Single | + + + | Confucianist Affiliation | Unknown | + + + [...] Team Providers + +------+ + | Care Paperhanger Apprentice Name | Role | Phone | + [...] | | | | [place], | [place], [place] | | | | | [place] [address] | [address] | | | | | [phone] | | | +--------+ + + + [...]
--- OUTSIDE RECORDS SUMMARY | ~2020-04-05 | XMS | Encounter Summary ---
Demographics + + + | Address | [address] | | | [place] [address] | + + + | Home Phone | | + + + | Preferred Language | Unknown | + + + | Marital Status | | + + + | Jewish Affiliation | Unknown | + + + | Race | Unknown | + + + | Ethnic Group | Unknown | + + + Author + + + | Author | [facility] | | | and Olegarioana | + + + | Organization | [facility] | | | and [...] Team Providers + +------+ + | Care Spring Up Supervisor Name | Role | Phone | + +------+ + | Mason Oliveira DO | PCP | | + +------+ + Reason for Visit Auth/Cert +--------+--------+ + + + + | Status | Reason | Specialty | Diagnoses / | Referred By | Referred To | | | | | Procedures | Contact | Contact | +--------+--------+ + + + + | Closed | | | Diagnoses | | | | | | | UTI | | | | | | | (urinary | | | | | | | tract | | | | | | | infection), | | | | | | | uncomplicate | | | | | | | d Sepsis | | | | | | | (HCC) UTI, | | | | | | | Sepsis | | | | | | | Sepsis | | | +--------+--------+ + + + + Encounter Details +--------+ + + + + | Date | Type | Department | Care Team | Description | +--------+ + + + + | 08/09/ | [facility] | [facility] | Ramiro Bey, | Alcoholism (HCC) | | 2015 - | Encounter | [facility] | [address] | (Primary Dx); | | | | [address] | [place] | Hypokalemia; | | 08/14/ | | [place] [address] | [id number] | Pyelonephritis; | | 2014 | | [phone] | [phone] | Sepsis, due to | | | | | | unspecified organism | | | | | | ([facility]); Falls, | | | | | | subsequent | | | | | | encounter; Sepsis, | | | | | | Gram negative ([facility]); | | | | | | Sepsis due to | | | | | | Escherichia coli (E. | | | | | | coli) ([facility]) | +--------+ + + + + Social [...] +---------+ + | No | | | not now | + + +---------+ + + + [...] + + + | Blood Pressure | 110/70 | 08/14/2015 8:00 AM | | | | | PST | | + + + + + | Pulse | 68 | 08/14/2015 8:00 AM | | | | | PST | | + + + + + | Temperature | 37 C (98.6 F) | 08/14/2015 8:00 AM | | | | | PST | | + + + + + | Respiratory Rate | 18 | 08/14/2015 8:00 AM | | | | | PST | | + + + + + | Oxygen Saturation | 95% | 08/14/2015 8:00 AM | | | | | PST | | + + + + + | Inhaled Oxygen | - | - | | | Concentration | | | | + + + + + | Weight | 92.7 kg (204 lb 5.9 | 08/09/2015 9:00 PM | | | | oz) | PST | | + + + + + | Height | 177.8 cm (5' 10") | 08/09/2015 9:00 PM | | | | | PST | | + + + + + | Body Mass Index | 29.32 | 08/09/2015 9:00 PM | | | | | PST | | + + + + + [...] documented as of this encounter Discharge Summaries Marco Antonio West MD - 08/14/2015 10:35 AM PST [facility] DISCHARGE SUMMARY Pt. Name/Age/: Tony Sánchez 54 y.o. 1960 Date of Admission: 08/09/2015 Date of Discharge: 08/14/2015 Admitting Physician: Ramiro Bey MD Primary Care Provider: Mason Oliveira DO Discharging Physician: Marco Antonio West MD DISCHARGE DIAGNOSES: Active Hospital Problems Diagnosis Sepsis/Bacteremia due to Escherichia coli (E. coli) Pyelonephritis Falls Alcoholism Hypokalemia Hypomagnesemia Shoulder pain Resolved Hospital Problems Diagnosis No resolved problems to display. DISCHARGE MEDICATIONS: Discharge Medications New Medications Details docusate sodium 100 MG capsule Take 100 mg by mouth Twice daily as needed for Constipation. aka: COLACE HYDROcodone-acetaminophen 5-325 mg per tablet Take 1-2 tablets by mouth every 4 hours as needed for Pain. aka: NORCO levofloxacin 750 MG tablet Take 1 tablet by mouth Daily for 10 days. Last day of treatment 08/24/15 aka: LEVAQUIN Unchanged Medications Details acetaminophen 325 mg tablet Take 325 mg by mouth every 4 hours as needed for Pain. aka: TYLENOL levETIRAcetam 1000 MG tablet Take 1,000 mg by mouth 2 times daily. aka: KEPPRA MULTIVITAMIN PO Take 1 tablet by mouth Daily. PARoxetine 20 mg tablet Take 20 mg by mouth every morning. aka: PAXIL HOSPITAL COURSE: Please refer to the H&P for full details and the most recent rounding rounding (progress) n ote. In short, patient presented with fever, falls, and generalized weakness. He was noted to h ave fidel pyuria. Blood cultures and urine cultures were drawn, and patient started on empi valentin antibiotic therapy. Eventually the urine culture and blood cultures both grew pansensit ld E.Coli. He was monitored for possible alcohol withdrawal, given alcohol use history. H e developed hypokalemia and hypomagnesemia, which were replaced. He had a couple falls on 10/13 because he did not wait for assistance, and got up quickly before staff could reach him . Fortunately, he did not impact his head during either of these falls. Patient was given IV rocephin during his hospitalization, and will be transitioned to levaquin 750mg PO qday o n discharge as this achieves similar bioavailability to IV levaquin, and he will complete 14-day total course of therapy at [facility]. Vital signs, physical examination, and laboratory values were within appropriate limits at time of discharge. Patient discharged to SNF ([facility] in [place], [place]). Labs admission/discharge days: WBC 12.2 -> 5.6 K 3.3 -> 4.2 Most recent weight: Input and output for last 24hrs: Wt Readings from Last 1 Encounters: 08/09/15 92.7 kg (204 lb 5.9 oz) I/O last 24 Hours: In: 3472 [P.O.:1640; I.V.:1832] Out: 4945 [Urine:4945] Vitals Ranges: Temp: [35.9 C (96.6 F)-37.2 C (99 F)] 37 C (98.6 F) Pulse: [64-76] 68 Resp: [18-20] 18 BP: (107-135)/(68-75) 110/70 mmHg Vitals: Temp: 37 C (98.6 F) BP: 110/70 mmHg Pulse: 68 Resp: 18 SpO2: 9 5 % SpO2 95 % on at flow rate L/min SUBJECTIVE: Patient endorses continued left shoulder pain. He denies any other problems. Plans [facility] [place] [facility] for discharge back to [facility] today. Patient denies headache, fever, chills, nausea, vomiting, shortness of breath, cough, chest pain, heart palpitation, abdominal pain, diarrhea, and constipation. A 6-point review of systems was performed and negative except as stated above. PHYSICAL EXAM: Patient seen and examined by me on discharge day 08/14/2015 General awake, NAD HEENT EOMI, PERRL Cardiac RRR, no murmur Lung CTAB, equal aeration bilaterally Abdominal normoactive bowel sounds, soft, nontender Extremities no C/C/E, no calf tenderness PROCEDURES AND CONSULTS: Procedures - none Consults - none PENDING RESULTS: None DISPOSITION AND DISCHARGE INSTRUCTIONS: Follow-up Information Follow up with Mason Oliveira DO In 2 weeks. Specialty: Family Medicine Contact information: [id number] [place] [id number] Condition: Patient being discharged with condition improved. Diet: Regular Activity: as tolerated, but up with assistance only (high fall risk) Greater than 30 minutes were spent on discharge and coordination of post-hospital care. Electronically signed by: Marco Antonio West MD, 08/14/2015 10:[address] [facility] documented in thi s encounter Discharge Instructions Instructions Marco Antonio West MD - 08/14/2015Regular diet. Activity as tolerated. Up with assistance only (high fall risk). Follow-up with PCP Mason Oliveira DO in 2 weeks. AttachmentsThe following attachments cannot be sent through Care Everywhere.PERIPHERALLY IN SERTED CENTRAL CATHETER (PICC), DISCHARGE INSTRUCTIONS FOR CARING FOR YOUR (AMERICAN)document ed in this encounter Medications at Time of Discharge + + + +---------+ + + | Medication | Sig | Dispensed | Refills | Start | End Date | | | | | | Date | | + + + +---------+ + + | acetaminophen | Take 500-1,000 mg by | | 0 | | | | (TYLENOL) 500 mg | mouth every 6 hours | | | | 9 | | tablet | as needed for Pain. | | | | | + + + +---------+ + + | docusate sodium | Take 100 mg by mouth | 60 | 0 | 08/14/20 | | | (COLACE) 100 MG | Twice daily as | capsule | | 15 | 9 | | capsule | needed for | | | | | | | Constipation. | | | | | + + + +---------+ + + | | Take 1-2 tablets by | 20 | 0 | 08/14/20 | | | HYDROcodone-acetamin | mouth every 4 hours | tablet | | 15 | 9 | | ophen (NORCO) 5-325 | as needed for Pain. | | | | | | mg per tablet | | | | | | + + + +---------+ + + | levETIRAcetam | Take 1,000 mg by | | 0 | | | | (KEPPRA) 1000 MG | mouth 2 times daily. | | | | 9 | | tablet | | | | | | + + + +---------+ + + | levofloxacin | Take 1 tablet by | 10 | 0 | 08/14/20 | | | (LEVAQUIN) 750 MG | mouth Daily for 10 | tablet | | 15 | 5 | | tablet | days. Last day of | | | | | | | treatment 08/24/15 | | | | | + + + +---------+ + + | Multiple | Take 1 tablet by | | 0 | | | | Vitamins-Minerals | mouth Daily. | | | | 9 | | (MULTIVITAMIN PO) | | | | | | + + + +---------+ + + | PARoxetine (PAXIL) | Take 20 mg by mouth | | 0 | | | | 20 mg tablet | every morning. | | | | 9 | + + + +---------+ + + documented as of this encounter Progress Notes Marco Antonio West MD - 08/13/2015 4:59 PM PST [facility] PROGRESS NOTE Patient: Tony Sánchez : 1960: Age: 54 y.o. MedRec: [id number] Admission date: 08/09/2015 Hospital day # : 4 Physician author: Marco Antonio West MD Today: 08/13/2015 Allergies: Allergies Allergen Reactions Penicillins Swelling Patient states he has swelling, hives, and itching. Current Medications: Current Facility-Administered Medications Medication Dose Route Frequency Provider Last Rate Last Dose acetaminophen (TYLENOL) tablet 325-650 mg 325-650 mg Oral Q4H PRN Ramiro Bey MD cefTRIAXone (ROCEPHIN) 2 g in sodium chloride 0.9% 50 mL IVPB 2 g Intravenous Daily Be njrishi Bey MD 100 mL/hr at 08/13/15 0840 2 g at 08/13/15 0840 docusate sodium (COLACE) capsule 100 mg 100 mg Oral BID PRN Ramiro Bey MD enoxaparin (LOVENOX) 40 mg/0.4 mL injection 40 mg 40 mg Subcutaneous Daily Ramiro Bey MD 40 mg at 08/13/15 0840 HYDROcodone-acetaminophen (NORCO) 5-325 mg per tablet 1-2 tablet 1-2 tablet Oral Q4H P RN Ramiro Bey MD 2 tablet at 08/13/15 0511 levETIRAcetam (KEPPRA) tablet 1,000 mg 1,000 mg Oral BID Ramiro Bey MD 1,000 mg at 08/13/15 0840 magnesium hydroxide (MILK OF MAGNESIA) 400 mg/5 mL suspension 30 mL 30 mL Oral Nightly PRN Ramiro Bey MD morphine injection 2-6 mg 2-6 mg Intravenous Q2H PRN Ramiro Bey MD ondansetron (ZOFRAN) injection 4 mg 4 mg Intravenous Q6H PRN Ramiro Bey MD PARoxetine (PAXIL) tablet 20 mg 20 mg Oral QAM Ramiro Bey MD 20 mg at 5 0841 senna (SENOKOT) tablet 8.6 mg 8.6 mg Oral BID Ramiro Bey MD 8.6 mg at 5 0841 sodium chloride 0.9% with KCl 20 mEq/L (NS + KCL 20) infusion Intravenous Continuous Nae Lala MD 75 mL/hr at 08/13/15 0513 Current Infusions: sodium chloride 0.9% with KCl 20 mEq/L 75 mL/hr at 08/13/15 0513 Objective Data Labs Recent Labs Lab 08/13/15 0620 08/12/15 0605 08/11/15 0604 WBC 4.9 5.9 7.1 HGB 9.3* 9.1* 8.7* HCT 30.4* 29.2* 28.3* PLT 214 152 133* NEUPCT 64.9 76.2 77.6 MONPCT 13.8* 10.3 11.4 No results for input(s): PROTIME, INR in the last 168 hours. No results for input(s): PTT in the last 168 hours. Recent Labs Lab 08/13/15 0620 08/12/15 0605 08/11/15 0604 GLU 107 99 106 NA 138 139 136 K 3.7 3.6 3.3* CL 104 107 106 CO2 26 25 23* ANIONGAP 8 7 7 BUN 4* 4* 5* CREA 0.50* 0.51* 0.50* GFRNONAA >60 >60 >60 CALCIUM 8.4 8.5 7.8* ALBUMIN 3.0* -- -- TOTALPROTEIN 6.4 -- -- BILITOT 0.3 -- -- ALKPHOS 71 -- -- ALT 20 -- -- AST 29 -- -- No results for input(s): BNP in the last 168 hours. Recent Labs Lab 08/10/15 0629 08/09/15 2255 MG 2.4 2.3 No results for input(s): PHOS in the last 168 hours. No results for input(s): AMYLASE, LIPASE in the last 168 hours. Recent Labs Lab 08/13/15 1155 AMMONIA 43* No results for input(s): TROPONINI, CKMB in the last 168 hours. Invalid input(s): CKTOTAL No results for input(s): PHART, PO2ART, PAC1NHM, JXL4ZQG, BEART, D5XMVYBE in the last 168 h ours. Point of care glucose: No results for input(s): POCGLU in the last 168 hours. Serial weights: Filed Weights: 08/09/15 2100 Weight: 92.7 kg (204 lb 5.9 oz) Most recent weight: Input and output for last 24hrs: Wt Readings from Last 1 Encounters: 08/09/15 92.7 kg (204 lb 5.9 oz) I/O last 24 Hours: In: 3980 [P.O.:1950; I.V.:2029] Out: 3475 [Urine:3475] Vitals Ranges: Temp: [35.9 C (96.6 F)-37.2 C (99 F)] 37.2 C (99 F) Pulse: [60-69] 69 Resp: [14-20] 20 BP: (109-135)/(62-75) 135/73 mmHg Vitals: Temp: 37.2 C (99 F) BP: 135/73 mmHg Pulse: 69 Resp: 20 SpO2: 9 5 % SpO2 95 % on at flow rate L/min Subjective Patient is not oriented this morning. He states he has some left shoulder pain. He notes that he is very sleepy. He had two falls this morning, not hitting his head during either o f these episodes. He was moved to a room closer to the nursing station so he can be monitor ed more closely. Patient denies any other problems. Patient denies headache, fever, chills, nausea, vomiting, cough, shortness of breath, chest pain, abdominal pain, diarrhea, and constipation. A 6-point ROS was performed and negative except as stated above. Exam General awake, NAD HEENT EOMI, PERRL Cardiac RRR, no murmur Lung CTAB, equal aeration bilaterally Abdominal normoactive bowel sounds, soft, nontender Extremities no C/C/E, no calf tenderness Assessment and Hospital Course Active Hospital Problems Diagnosis Sepsis due to Escherichia coli (E. coli) Pyelonephritis Falls Alcoholism Hypokalemia Hypomagnesemia Shoulder pain Resolved Hospital Problems Diagnosis No resolved problems to display. Plan 1) Pyelonephritis with sepsis (present on admission) - due to pansensitive E.Coli per [facility], sepsis resolved, cont rocephin 2) Bacteremia 2/2 pansensitive E.Coli - cont rocephin through 08/15, then needs 1 week PO a ntibiotic therapy (probably levaquin) 3) Mechanical fall x 2 on 08/13 - did not hit head, pt coordination poor but he moves quick ly when he decides to get up so staff has difficulty preventing this, pt now moved to room c losest to nursing station, sitter when available if still needed 4) Alcohol use 5) Hypokalemia - resolved 6) Hypomagnesemia - resolved 7) Left shoulder pain - stable 8) Dispo - likely back to [place] 08/14 if they can accept back Marco Antonio West MD 08/13/2015 16:59 [facility]ch, Nae Baumann MD - 08/12/2015 1:29 PM PST [facility] HOSPITALIST PROGRESS NOTE PATIENT NAME: Tony Sánchez AGE: 54 y.o. DATE OF SERVICE: 08/12/2015 SUBJECTIVE: No new concerns. Called [place], set up fax of results 08/11 final is sensiti ve E coli. PICC/midline pending as well as no care management plan of discharge at the time of my rounds today. He will need three more days IV and a week of PO antibiotics for blood a nd urine sepsis. OBJECTIVE: VITAL SIGNS FOR LAST 24 HOURS: Temp: [37 C (98.6 F)-37.7 C (99.9 F)] 37 C (98.6 F) Pulse: [64-82] 64 Resp: [18] 18 BP: (116-140)/(70-77) 116/75 mmHg INTAKE/OUTPUT THIS SHIFT: Intake/Output Summary (Last 24 hours) at 08/12/15 1332 Last data filed at 08/12/15 1248 Gross per 24 hour Intake 4909 ml Output 3425 ml Net 1484 ml EXAM: WDWN NAD Lungs: clear Heart: RRR Abdomen: soft, non tender Stable, chronic changes due to head injury/TBI MEDICATIONS REVIEWED: cefTRIAXone (ROCEPHIN) IV 2 g Intravenous Daily enoxaparin (LOVENOX) injection 40 mg Subcutaneous Daily levETIRAcetam 1,000 mg Oral BID PARoxetine 20 mg Oral QAM senna 8.6 mg Oral BID sodium chloride 0.9% with KCl 20 mEq/L 1,000 mL (08/12/15 0247) LABORATORY REVIEWED INCLUDING: Lab Results Component Value Date WBC 5.9 08/12/2015 HGB 9.1* 08/12/2015 HCT 29.2* 08/12/2015 Lab Results Component Value Date CREA 0.51* 08/12/2015 BUN 4* 08/12/2015 NA 139 08/12/2015 K 3.6 08/12/2015 CL 107 08/12/2015 CO2 25 08/12/2015 ASSESSMENT AND PLAN: Active Hospital Problems Diagnosis Sepsis due to Escherichia coli (E. coli) Pyelonephritis Falls Alcoholism Hypokalemia Hypomagnesemia Shoulder pain Resolved Hospital Problems Diagnosis No resolved problems to display. Plan: Had day one Cefepime and today is day three of Rocephin, need three more days IV then 7 PO, discharge planning, infusion therapy aware. DATE/TIME: 08/12/2015 13:32 SIGNED: Nae Lala MD Portions of this chart may have been created using Touchbase voice recognition software. Occas ional wrong-word or "sound alike" substitutions may have occurred due to the inherent limita tions of voice recognition software. Please read chart carefully and recognize using context where these substitutions have occurred.Electronically signed by Nae Lala MD at 1:32 PM PSTUnm Hospitalsintia, Nae Baumann MD - 08/11/2015 4:25 PM PSTFormatting of this note mi ght be different from the original. [facility] H[facility]PITALIST PROGRESS NOTE PATIENT NAME: Tony Sánchez AGE: 54 y.o. DATE OF SERVICE: 08/11/2015 SUBJECTIVE: No chest pain, no shortness of breath. Denies back/flank pain. No new concerns. Called [place], set up fax of results. OBJECTIVE: VITAL SIGNS FOR LAST 24 HOURS: Temp: [36.9 C (98.4 F)-38.4 C (101.1 F)] 37.7 C ( 99.9 F) Pulse: [69-82] 82 Resp: [18-20] 18 BP: (113-131)/(72-79) 126/77 mmHg INTAKE/OUTPUT THIS SHIFT: Intake/Output Summary (Last 24 hours) at 08/11/15 1625 Last data filed at 08/11/15 1500 Gross per 24 hour Intake 4459 ml Output 3550 ml Net 909 ml EXAM: WDWN NAD Lungs: clear Heart: RRR Abdomen: soft, non tender Stable, chronic changes due to head injury/TBI MEDICATIONS REVIEWED: cefTRIAXone (ROCEPHIN) IV 2 g Intravenous Daily enoxaparin (LOVENOX) injection 40 mg Subcutaneous Daily levETIRAcetam 1,000 mg Oral BID PARoxetine 20 mg Oral QAM potassium chloride (peripheral line) IVPB 40 mEq Intravenous Once senna 8.6 mg Oral BID sodium chloride 0.9% with KCl 20 mEq/L 1,000 mL (08/11/15 1139) LABORATORY REVIEWED INCLUDING: Lab Results Component Value Date WBC 7.1 08/11/2015 HGB 8.7* 08/11/2015 HCT 28.3* 08/11/2015 Lab Results Component Value Date CREA 0.50* 08/11/2015 BUN 5* 08/11/2015 NA 136 08/11/2015 K 3.3* 08/11/2015 CL 106 08/11/2015 CO2 23* 08/11/2015 ASSESSMENT AND PLAN: Active Hospital Problems Diagnosis Sepsis, Gram negative Pyelonephritis Falls Alcoholism Hypokalemia Hypomagnesemia Shoulder pain Resolved Hospital Problems Diagnosis No resolved problems to display. Plan: continue empiric antibiotics, call from [facility] with blood cx + gram neg josefina. aw aiting final for treatment plan and discharge planning DATE/TIME: 08/11/2015 16:25 SIGNED: Nae Lala MD Portions of this chart may have been created using Touchbase voice recognition software. Occas ional wrong-word or "sound alike" substitutions may have occurred due to the inherent limita tions of voice recognition software. Please read chart carefully and recognize using context where these substitutions have occurred.Electronically signed by Nae Lala MD at 4:27 PM Nae Tatum MD - 08/10/2015 3:00 PM PSTFormatting of this note mi ght be different from the original. [facility]ITAL[facility] PROGRESS NOTE PATIENT NAME: Tony Sánchez AGE: 54 y.o. DATE OF SERVICE: 08/10/2015 SUBJECTIVE: No chest pain, no shortness of breath. Denies back/flank pain. OBJECTIVE: VITAL SIGNS FOR LAST 24 HOURS: Temp: [35.9 C (96.6 F)-37.1 C (98.8 F)] 37.1 C (9 8.8 F) Pulse: [63-89] 71 Resp: [16-18] 18 BP: (95-111)/(50-69) 106/65 mmHg INTAKE/OUTPUT THIS SHIFT: Intake/Output Summary (Last 24 hours) at 08/10/15 1500 Last data filed at 08/10/15 1442 Gross per 24 hour Intake 2846 ml Output 2150 ml Net 696 ml EXAM: WDWN NAD Lungs: clear Heart: RRR Abdomen: soft, non tender MEDICATIONS REVIEWED: cefTRIAXone (ROCEPHIN) IV 2 g Intravenous Daily enoxaparin (LOVENOX) injection 40 mg Subcutaneous Daily levETIRAcetam 1,000 mg Oral BID PARoxetine 20 mg Oral QAM senna 8.6 mg Oral BID sodium chloride 0.9% with KCl 20 mEq/L 125 mL/hr at 08/10/15 0950 LABORATORY REVIEWED INCLUDING: Lab Results Component Value Date WBC 8.6 08/10/2015 HGB 9.1* 08/10/2015 HCT 29.7* 08/10/2015 Lab Results Component Value Date CREA 0.56* 08/10/2015 BUN 7 08/10/2015 NA 140 08/10/2015 K 3.4* 08/10/2015 CL 114* 08/10/2015 CO2 21* 08/10/2015 ASSESSMENT AND PLAN: Active Hospital Problems Diagnosis Sepsis, Gram negative Pyelonephritis Falls Alcoholism Hypokalemia Hypomagnesemia Shoulder pain Resolved Hospital Problems Diagnosis No resolved problems to display. Plan: continue empiric antibiotics, call from [facility] with blood cx + gram neg josefina. DATE/TIME: 08/10/2015 15:00 SIGNED: Nae Lala MD Portions of this chart may have been created using Dragon voice recognition software. Occas ional wrong-word or "sound alike" substitutions may have occurred due to the inherent limita tions of voice recognition software. Please read chart carefully and recognize using context where these substitutions have occurred.Electronically signed by Nae Lala MD at 3:02 PM PSTdocumented in this encounter H&P Notes Ramiro Bey MD - 08/09/2015 9:56 PM PSTFormatting of this note might be different f rom the original. [facility] HISTORY AND PHYSICAL Pt. Name/Age/: Tony Sánchez 54 y.o. 1960 Date of admission: 08/09/2015 Admitting Physician: Ramiro Bey MD Primary Care Provider: No primary care provider on file. CHIEF COMPLAINT: Confusion, falls, fever HISTORY OF PRESENT ILLNESS: This is a 54 y.o. male with a history of traumatic brain injury in the last year, alcoholis m who presents with fevers, falls, weakness. He has a history of alcoholism and a number of falls including earlier this year, when he f ell (reportedly ground-level fall in the bathroom) and had a traumatic brain injury requirin g a craniectomy, and then was discharged to a snf facility in [place] until ab out a week ago, when he went to live with his parents on the [facility]. He has had some falls since going to live with his parents, and reportedly had some fevers and diarrhea over the last 1-2 days. Today was less responsive with a fever, and he was br ought in to [facility], where he was found to have a temperature of 104.7, and had a HR i n the 130's, and was given 2 liters of saline, cefepime, vancomycin for sepsis, and was foun d to have fidel pyuria. He is unable to give very specific history, but states that he is n ot having current chest pain, shortness of breath, abdominal pain, nausea, or vomiting. He has had falls, and is having left shoulder pain. PAST MEDICAL and SURGICAL HISTORY: Past Medical History Diagnosis Date Traumatic brain injury (HCC) Alcoholism (HCC) Past Surgical History Procedure Laterality Date Craniectomy FAMILY HISTORY: Unavailable SOCIAL HISTORY: After TBI, living with parents. History of smoking and EtOH use. By his report and his mother's report, not actively drinking. REVIEW OF SYSTEMS: Unobtainable because of unreliable history. HOME MEDICATIONS: Current Discharge Medication List CONTINUE these medications which have NOT CHANGED Details acetaminophen (TYLENOL) 325 mg tablet Take 325 mg by mouth every 4 hours as needed for Pain . levETIRAcetam (KEPPRA) 1000 MG tablet Take 1,000 mg by mouth 2 times daily. Multiple Vitamins-Minerals (MULTIVITAMIN PO) Take 1 tablet by mouth Daily. PARoxetine (PAXIL) 20 mg tablet Take 20 mg by mouth every morning. ALLERGIES: Allergies Allergen Reactions Penicillins VITAL SIGNS: Temp: 36.5 C (97.7 F), Pulse: 89, Resp: 18, BP: 111/69 mmHg, SpO2 97 % on at flow rat e L/min Temp Min: 36.5 C (97.7 F) Max: 36.5 C (97.7 F) Weight: 92.7 kg (204 lb 5.9 oz) PHYSICAL EXAMINATION: Gen Chris - alert, cooperative and no distress, pleasant, poor historian Head - Indented temporal and frontal skull Eyes - conjunctiva/corneas clear ENT - mucous membranes moist Neck - supple Lungs - clear to auscultation, no wheezes or rales and unlabored breathing Heart - normal rate, regular rhythm, normal S1, S2, no murmurs, rubs, clicks or gallops Abdomen - soft, non-tender, without masses or organomegaly Extremities - no peripheral edema, no clubbing or cyanosis Skin - no rashes Neurologic - Alert, oriented to place, name, but not year. No facial droop, left hand g rip 4/5, right hand uniform cap operator 5/5, plantarflexion 5/5 bilaterally, soft-touch sensation intact th roughout DIAGNOSTIC STUDIES: Available data and images were reviewed personally. Significant results and findings are a ddressed here or in the Assessment and Plan. Na 134, K 2.9, Cl 107, HCO3 22, BUN 11, Cr 0.6, glucose 142 AST 39, ALT 20, Albumin 3.2, Tot Prot 6.3, alk phos 64, total bili 0.6 WBC 9.1, HCT 29.2, Plt 126, 96% polys, 3% monos D-dimer 1.4, fibrinogen 452, INR 1.1 UA: SG 1.015, positive nitrates, and leukocyte esterase, with 30 WBC's, 15 RBC's, and 3+ ba cteria EKG: Reviewed independently by me. The tracing shows sinus tach at 121, partial RBBB Head CT: No acute intracranial hemorrhage, infarction, or mass. White matter hypodensities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 06/23/2019)- Presented with f ever, tachycardia and confusion from sepsis from a pyelonephritis - Received fluids, vancomycin, and cefepime at [facility], now hemodynamically stable - Has urinary source, so will treat with IV ceftriaxone and await cultures from [facility] ssessment & Plan N ote - Ramiro Bey MD - 08/09/2015 10:45 PM PSTAssociated Problem(s): Hypokalemia (Res olved 06/23/2019)- Reportedly has had some diarrhea, unclear how his nutrition has been - K and Mag repleted at [facility], recheck now lan of Care - Yari Block RN - 08/09/2015 8:50 PM PST Pt arrived from [place] via ambulance S/P fall and weakness. Pt is oriented at this time and is cooperative and calm. He is positive for UTI and has an elevated D dimer. Introduced self to the patient and educated him on using the call light. documented in this encounter Plan of Treatment Not on filedocumented as of this encounter Procedures + +--------+ + + + | Procedure Name | Priori | Date/Time | Associated Diagnosis | Comments | | | ty | | | | + +--------+ + + + | SLIDE REVIEW, | Routin | 08/14/2015 | | Results for this | | PERIPHERAL SMEAR | e | 6:17 AM | | procedure are in the | | | | PST | | results section. | + +--------+ + + + | CBC WITH | Routin | 08/14/2015 | | Results for this | | DIFFERENTIAL | e | 6:17 AM | | procedure are in the | | | | PST | | results section. | + +--------+ + + + | MAGNESIUM | Routin | 08/14/2015 | | Results for this | | | e | 6:17 AM | | procedure are in the | | | | PST | | results section. | + +--------+ + + + | RENAL FUNCTION PANEL | Routin | 08/14/2015 | | Results for this | | | e | 6:17 AM | | procedure are in the | | | | PST | | results section. | + +--------+ + + + | TSH | Add-On | 08/13/2015 | | Results for this | | | | 11:55 AM | | procedure are in the | | | | PST | | results section. | + +--------+ + + + | AMMONIA | Add-On | 08/13/2015 | | Results for this | | | | 11:55 AM | | procedure are in the | | | | PST | | results section. | + +--------+ + + + | VITAMIN B-12 | Add-On | 08/13/2015 | | Results for this | | | | 6:20 AM | | procedure are in the | | | | PST | | results section. | + +--------+ + + + | CBC WITH | Routin | 08/13/2015 | | Results for this | | DIFFERENTIAL | e | 6:20 AM | | procedure are in the | | | | PST | | results section. | + +--------+ + + + | FOLATE | Add-On | 08/13/2015 | | Results for this | | | | 6:20 AM | | procedure are in the | | | | PST | | results section. | + +--------+ + + + | HEPATIC FUNCTION | Add-On | 08/13/2015 | | Results for this | | PANEL | | 6:20 AM | | procedure are in the | | | | PST | | results section. | + +--------+ + + + | BASIC METABOLIC | Routin | 08/13/2015 | | Results for this | | PANEL | e | 6:20 AM | | procedure are in the | | | | PST | | results section. | + +--------+ + + + | CBC WITH | Routin | 08/12/2015 | | Results for this | | DIFFERENTIAL | e | 6:05 AM | | procedure are in the | | | | PST | | results section. | + +--------+ + + + | BASIC METABOLIC | Routin | 08/12/2015 | | Results for this | | PANEL | e | 6:05 AM | | procedure are in the | | | | PST | | results section. | + +--------+ + + + | CBC WITH | Routin | 08/11/2015 | | Results for this | | DIFFERENTIAL | e | 6:04 AM | | procedure are in the | | | | PST | | results section. | + +--------+ + + + | BASIC METABOLIC | Routin | 08/11/2015 | | Results for this | | PANEL | e | 6:04 AM | | procedure are in the | | | | PST | | results section. | + +--------+ + + + | CBC WITH | Routin | 08/10/2015 | | Results for this | | DIFFERENTIAL | e | 6:29 AM | | procedure are in the | | | | PST | | results section. | + +--------+ + + + | MAGNESIUM | Routin | 08/10/2015 | | Results for this | | | e | 6:29 AM | | procedure are in the | | | | PST | | results section. | + +--------+ + + + | BASIC METABOLIC | Routin | 08/10/2015 | | Results for this | | PANEL | e | 6:29 AM | | procedure are in the | | | | PST | | results section. | + +--------+ + + + | URINALYSIS WITH | Routin | 08/09/2015 | | Results for this | | MICROSCOPIC WITH | e | 11:24 PM | | procedure are in the | | CULTURE IF INDICATED | | PST | | results section. | + +--------+ + + + | CULTURE, URINE | Routin | 08/09/2015 | | Results for this | | | e | 11:24 PM | | procedure are in the | | | | PST | | results section. | + +--------+ + + + | SLIDE REVIEW, | Routin | 08/09/2015 | | Results for this | | PERIPHERAL SMEAR | e | 10:55 PM | | procedure are in the | | | | PST | | results section. | + +--------+ + + + | CBC WITH | Routin | 08/09/2015 | | Results for this | | DIFFERENTIAL | e | 10:55 PM | | procedure are in the | | | | PST | | results section. | + +--------+ + + + | MAGNESIUM | Routin | 08/09/2015 | | Results for this | | | e | 10:55 PM | | procedure are in the | | | | PST | | results section. | + +--------+ + + + | LACTIC ACID | Routin | 08/09/2015 | | Results for this | | | e | 10:55 PM | | procedure are in the | | | | PST | | results section. | + +--------+ + + + | BASIC METABOLIC | Routin | 08/09/2015 | | Results for this | | PANEL | e | 10:55 PM | | procedure are in the | | | | PST | | results section. | + +--------+ + + + documented in this encounter Results Slide Review, Peripheral Smear (08/14/2015 6:17 AM PST) + + + + + + | Component | Value | Ref Range | Performed | Pathologist | | | | | At | Signature | + + + + + + | WBC | Normal | | [facility] | | | Morphology | | | [facility] | | | | | | [facility] | | | | | | [facility] - | | | | | | LABORATORY | | + + + + + + | Platelet | Adequate | Adequate | [facility] | | | Estimate | | | [facility] | | | | | | [facility] | | | | | | CENTER - | | | | | | LABORATORY | | + + + + + + | Anisocytosi | Slight (A) | (none) | [facility] | | | s | | | [facility] | | | | | | [facility] | | | | | | CENTER - | | | | | | LABORATORY | | + + + + + + + + | Specimen | + + | Blood | + + + + + + + | Performing | Address | City/State/Zipcode | Phone Number | | Organization | | | | + + + + + | [facility] | [address] | [place] | [phone] | | [facility] | | [address] | | | - LABORATORY | | | | + + + + + Magnesium (08/14/2015 6:17 AM PST) + +---------+ + + + | Component | Value | Ref Range | Performed | Pathologist | | | | | At | Signature | + +---------+ + + + | Magnesium | 1.6 (L) | 1.8 - 2.5 mg/dL | [facility] | | | | | | [facility] | | [facility] | [facility] | | | | | | [facility] - | | | | | | LABORATORY | | + +---------+ + + + + + | Specimen | + + | Blood | + + + + + + + | Performing | Address | City/State/Zipcode | Phone Number | | Organization | | | | + + + + + | [facility] | [address] | [place], [place] | [phone] | | [facility] | | [address] | | | - LABORATORY | | | | + + + + + Renal Function Panel (08/14/2015 6:17 AM PST) + + + + + + | Component | Value | Ref Range | Performed | Pathologist | | | | | At | Signature | + + + + + + | Na | 138 | 136 - 149 | [facility] | | | | | mmol/L | [facility] | | | | | | MEDICAL | | | | | | CENTER - | | | | | | LABORATORY | | + + + + + + | K | 4.2 | 3.5 - 5.1 | [facility] | | | | | mmol/L | [facility] | | | | | | MEDICAL | | | | | | CENTER - | | | | | | LABORATORY | | + + + + + + | Cl | 105 | 98 - 109 mmol/L | [facility] | | | | | | [facility] | | | | | | MEDICAL | | | | | | CENTER - | | | | | | LABORATORY | | + + + + + + | CO2 | 27 | 24 - 31 mmol/L | [facility] | | | | | | [facility] | | | | | | MEDICAL | | | | | | CENTER - | | | | | | LABORATORY | | + + + + + + | Anion Gap | 6 | 3 - 16 mmol/L | [facility] | | | | | | [facility] | | | | | | [facility] | | | | | | CENTER - | | | | | | LABORATORY | | + + + + + + | Glucose | 98 | 70 - 109 mg/dL | [facility] | | | | | | [facility] | | | | | | MEDICAL | | | | | | CENTER - | | | | | | LABORATORY | | + + + + + + | BUN | 4 (L) | 7 - 18 mg/dL | [facility] | | | | | | [facility] | | | | | | MEDICAL | | | | | | CENTER - | | | | | | LABORATORY | | + + + + + + | Creatinine | 0.56 (L) | 0.60 - 1.30 | [facility] | | | | | mg/dL | [facility] | | | | | | MEDICAL | | | | | | CENTER - | | | | | | LABORATORY | | + + + + + + | eGFR if not | >60 | >=60 | [facility] | | | | | mL/min/1.73m2 | [facility] | | | [facility] | | | [facility] | | | | | | CENTER - | | | | | | LABORATORY | | + + + + + + | Calcium | 8.9 | 8.3 - 10.5 | [facility] | | | | | mg/dL | [facility] | | | | | | [facility] | | | | | | CENTER - | | | | | | LABORATORY | | + + + + + + | Albumin | 3.1 (L) | 3.2 - 5.0 g/dL | [facility] | | | | | | [facility] | | | | | | MEDICAL | | | | | | CENTER - | | | | | | LABORATORY | | + + + + + + | Phosphorus | 3.8 | 2.5 - 4.6 mg/dL | [facility] | | | | | | [facility] | | | | | | MEDICAL | | | | | | CENTER - | | | | | | LABORATORY | | + + + + + + | BUN/Creatin | 7.1 | | [facility] | | | ine Ratio | | | [facility] | | | | | | MEDICAL | | | | | | CENTER - | | | | | | LABORATORY | | + + + + + + + + | Specimen | + + | Blood | + + + + + + + | Performing | Address | City/State/Zipcode | Phone Number | | Organization | | | | + + + + + | [facility] | [address] | [place] | [phone] | | [facility] | | [address] | | | - LABORATORY | | | | + + + + + CBC with Differential (08/14/2015 6:17 AM PST) + + + + + + | Component | Value | Ref Range | Performed | Pathologist | | | | | At | Signature | + + + + + + | White Blood | 5.6 | 4.0 - 11.0 K/uL | [facility] | | | Cells | | | [facility] | | | | | | MEDICAL | | | | | | CENTER - | | | | | | LABORATORY | | + + + + + + | Red Blood | 4.11 (L) | 4.30 - 5.70 | [facility] | | | Cells | | M/uL | [facility] | | | | | | MEDICAL | | | | | | CENTER - | | | | | | LABORATORY | | + + + + + + | Hemoglobin | 10.2 (L) | 13.5 - 18.0 | [facility] | | | | | g/dL | [facility] | | | | | | MEDICAL | | | | | | CENTER - | | | | | | LABORATORY | | + + + + + + | Hematocrit | 33.3 (L) | 40.0 - 51.0 % | [facility] | | | | | | [facility] | | | | | | MEDICAL | | | | | | CENTER - | | | | | | LABORATORY | | + + + + + + | MCV | 81.1 (L) | 83.0 - 101.0 fL | [facility] | | | | | | [facility] | | | | | | MEDICAL | | | | | | CENTER - | | | | | | LABORATORY | | + + + + + + | MCH | 24.9 (L) | 28.0 - 35.0 pg | [facility] | | | | | | [facility] | | | | | | MEDICAL | | | | | | CENTER - | | | | | | LABORATORY | | + + + + + + | MCHC | 30.8 (L) | 32.0 - 36.0 | [facility] | | | | | g/dL | [facility] | | | | | | MEDICAL | | | | | | CENTER - | | | | | | LABORATORY | | + + + + + + | RDW-CV | 25.6 (H) | <15.0 % | [facility] | | | | | | [facility] | | | | | | MEDICAL | | | | | | CENTER - | | | | | | LABORATORY | | + + + + + + | Platelet | 295 | 140 - 440 K/uL | [facility] | | | Count | | | [facility] | | | | | | MEDICAL | | | | | | CENTER - | | | | | | LABORATORY | | + + + + + + | MPV | 7.9 | fL | [facility] | | | | | | [facility] | | | | | | MEDICAL | | | | | | CENTER - | | | | | | LABORATORY | | + + + + + + | % | 61.9 | 45.0 - 82.0 % | [facility] | | | Neutrophils | | | [facility] | | | | | | MEDICAL | | | | | | CENTER - | | | | | | LABORATORY | | + + + + + + | % | 22.5 | 20.0 - 45.0 % | [facility] | | | Lymphocytes | | | [facility] | | | | | | MEDICAL | | | | | | CENTER - | | | | | | LABORATORY | | + + + + + + | % Monocytes | 11.1 | 4.0 - 12.0 % | [facility] | | | | | | [facility] | | | | | | MEDICAL | | | | | | CENTER - | | | | | | LABORATORY | | + + + + + + | % | 3.6 | 0.0 - 5.0 % | [facility] | | | Eosinophils | | | [facility] | | | | | | MEDICAL | | | | | | CENTER - | | | | | | LABORATORY | | + + + + + + | % Basophils | 0.9 | 0.0 - 1.0 % | [facility] | | | | | | [facility] | | | | | | MEDICAL | | | | | | CENTER - | | | | | | LABORATORY | | + + + + + + | Absolute | 3.50 | 1.80 - 8.50 | [facility] | | | Neutrophils | | K/uL | [facility] | | | | | | MEDICAL | | | | | | CENTER - | | | | | | LABORATORY | | + + + + + + | Absolute | 1.30 | 0.60 - 3.20 | [facility] | | | Lymphocytes | | K/uL | [facility] | | | | | | MEDICAL | | | | | | CENTER - | | | | | | LABORATORY | | + + + + + + | Absolute | 0.60 | 0.00 - 1.00 | [facility] | | | Monocytes | | K/uL | [facility] | | | | | | MEDICAL | | | | | | CENTER - | | | | | | LABORATORY | | + + + + + + | Absolute | 0.20 | 0.00 - 0.40 | [facility] | | | Eosinophils | | K/uL | [facility] | | | | | | MEDICAL | | | | | | CENTER - | | | | | | LABORATORY | | + + + + + + | Absolute | 0.00 | 0.00 - 0.10 | [facility] | | | Basophils | | K/uL | [facility] | | | | | | MEDICAL | | | | | | CENTER - | | | | | | LABORATORY | | + + + + + + + + | Specimen | + + | Blood | + + + + + + + | Performing | Address | City/State/Zipcode | Phone Number | | Organization | | | | + + + + + | [facility] | [address] | [place] | [phone] | | [facility] | | [address] | | | - LABORATORY | | | | + + + + + TSH (08/13/2015 11:55 AM PST) + + + + + + | Component | Value | Ref Range | Performed | Pathologist | | | | | At | Signature | + + + + + + | TSH | 3.86Comment: All TSH | 0.34 - 5.60 | [facility] | | | | samples are screened | uIU/mL | [facility] | | | | using a 2nd Generation | | MEDICAL | | | | test, and are reflexed | | CENTER - | | | | to a 3rd Generation test | | LABORATORY | | | | if indicated. | | | | + + + + + + + + | Specimen | + + | Blood | + + + + + + + | Performing | Address | City/State/Zipcode | Phone Number | | Organization | | | | + + + + + | [facility] | [address] | [place] | [phone] | | [facility] | | [address] | | | - LABORATORY | | | | + + + + + Ammonia (08/13/2015 11:55 AM PST) + +--------+ + + + | Component | Value | Ref Range | Performed | Pathologist | | | | | At | Signature | + +--------+ + + + | Ammonia | 43 (H) | 11 - 35 umol/L | [facility] | | | | | | [facility] | | | | | | MEDICAL | | | | | | CENTER - | | | | | | LABORATORY | | + +--------+ + + + + + | Specimen | + + | Blood | + + + + + + + | Performing | Address | City/State/Zipcode | Phone Number | | Organization | | | | + + + + + | [facility] | [address] | [place] | [phone] | | [facility] | | [address] | | | - LABORATORY | | | | + + + + + Vitamin B-12 (08/13/2015 6:20 AM PST) + + + + + + | Component | Value | Ref Range | Performed | Pathologist | | | | | At | Signature | + + + + + + | VITAMIN | 326Comment: DEFICIENT: | 180 - 914 pg/mL | [facility] | | | B-12 | <145 | | [facility] | | | | pg/mLINDETERMINATE: | | MEDICAL | | | | 145-180 pg/mL | | CENTER - | | | | | | LABORATORY | | + + + + + + + + | Specimen | + + | Blood | + + + + + + + | Performing | Address | City/State/Zipcode | Phone Number | | Organization | | | | + + + + + | [facility] | [address] | [place] | [phone] | | [facility] | | [address] | | | - LABORATORY | | | | + + + + + Folate (08/13/2015 6:20 AM PST) + +-------+ + + + | Component | Value | Ref Range | Performed | Pathologist | | | | | At | Signature | + +-------+ + + + | FOLATE | 16.0 | >5.8 ng/mL | [facility] | | | | | | [facility] | | | | | | MEDICAL | | | | | | CENTER - | | | | | | LABORATORY | | + +-------+ + + + + + | Specimen | + + | Blood | + + + + + + + | Performing | Address | City/State/Zipcode | Phone Number | | Organization | | | | + + + + + | [facility] | [address] | [place] | [phone] | | [facility] | | [address] | | | - LABORATORY | | | | + + + + + Hepatic Function Panel (08/13/2015 6:20 AM PST) + +---------+ + + + | Component | Value | Ref Range | Performed | Pathologist | | | | | At | Signature | + +---------+ + + + | Bilirubin | 0.3 | 0.1 - 1.5 mg/dL | [facility] | | | Total | | | [facility] | | | | | | MEDICAL | | | | | | CENTER - | | | | | | LABORATORY | | + +---------+ + + + | Total | 6.4 | 6.0 - 7.8 g/dL | [facility] | | | Protein | | | [facility] | | | | | | MEDICAL | | | | | | CENTER - | | | | | | LABORATORY | | + +---------+ + + + | Albumin | 3.0 (L) | 3.2 - 5.0 g/dL | [facility] | | | | | | [facility] | | | | | | MEDICAL | | | | | | CENTER - | | | | | | LABORATORY | | + +---------+ + + + | AST | 29 | 10 - 42 U/L | [facility] | | | | | | [facility] | | | | | | MEDICAL | | | | | | CENTER - | | | | | | LABORATORY | | + +---------+ + + + | ALT | 20 | 6 - 45 U/L | [facility] | | | | | | [facility] | | | | | | MEDICAL | | | | | | CENTER - | | | | | | LABORATORY | | + +---------+ + + + | Alkaline | 71 | 40 - 110 U/L | [facility] | | | Phosphatase | | | [facility] | | | | | | MEDICAL | | | | | | CENTER - | | | | | | LABORATORY | | + +---------+ + + + | Globulin | 3.4 | g/dL | [facility] | | | | | | [facility] | | | | | | MEDICAL | | | | | | CENTER - | | | | | | LABORATORY | | + +---------+ + + + | Albumin/Naheed | 0.9 | | [facility] | | | bulin Ratio | | | [facility] | | | | | | MEDICAL | | | | | | CENTER - | | | | | | LABORATORY | | + +---------+ + + + | Bilirubin, | 0.10 | 0.00 - 0.20 | [facility] | | | Direct | | mg/dl | [facility] | | | | | | MEDICAL | | | | | | CENTER - | | | | | | LABORATORY | | + +---------+ + + + + + | Specimen | + + | Blood | + + + + + + + | Performing | Address | City/State/Zipcode | Phone Number | | Organization | | | | + + + + + | [facility] | [address] | [place] | [phone] | | [facility] | | [address] | | | - LABORATORY | | | | + + + + + CBC with Differential (08/13/2015 6:20 AM PST) + + + + + + | Component | Value | Ref Range | Performed | Pathologist | | | | | At | Signature | + + + + + + | White Blood | 4.9 | 4.0 - 11.0 K/uL | [facility] | | | Cells | | | [facility] | | | | | | MEDICAL | | | | | | CENTER - | | | | | | LABORATORY | | + + + + + + | Red Blood | 3.77 (L) | 4.30 - 5.70 | [facility] | | | Cells | | M/uL | [facility] | | | | | | MEDICAL | | | | | | CENTER - | | | | | | LABORATORY | | + + + + + + | Hemoglobin | 9.3 (L) | 13.5 - 18.0 | [facility] | | | | | g/dL | [facility] | | | | | | MEDICAL | | | | | | CENTER - | | | | | | LABORATORY | | + + + + + + | Hematocrit | 30.4 (L) | 40.0 - 51.0 % | [facility] | | | | | | [facility] | | | | | | MEDICAL | | | | | | CENTER - | | | | | | LABORATORY | | + + + + + + | MCV | 80.7 (L) | 83.0 - 101.0 fL | [facility] | | | | | | [facility] | | | | | | MEDICAL | | | | | | CENTER - | | | | | | LABORATORY | | + + + + + + | MCH | 24.8 (L) | 28.0 - 35.0 pg | [facility] | | | | | | [facility] | | | | | | MEDICAL | | | | | | CENTER - | | | | | | LABORATORY | | + + + + + + | MCHC | 30.7 (L) | 32.0 - 36.0 | [facility] | | | | | g/dL | [facility] | | | | | | MEDICAL | | | | | | CENTER - | | | | | | LABORATORY | | + + + + + + | RDW-CV | 25.5 (H) | <15.0 % | [facility] | | | | | | [facility] | | | | | | MEDICAL | | | | | | CENTER - | | | | | | LABORATORY | | + + + + + + | Platelet | 214 | 140 - 440 K/uL | [facility] | | | Count | | | [facility] | | | | | | MEDICAL | | | | | | CENTER - | | | | | | LABORATORY | | + + + + + + | MPV | 7.9 | fL | [facility] | | | | | | [facility] | | | | | | MEDICAL | | | | | | CENTER - | | | | | | LABORATORY | | + + + + + + | % | 64.9 | 45.0 - 82.0 % | [facility] | | | Neutrophils | | | [facility] | | | | | | MEDICAL | | | | | | CENTER - | | | | | | LABORATORY | | + + + + + + | % | 16.6 (L) | 20.0 - 45.0 % | [facility] | | | Lymphocytes | | | [facility] | | | | | | MEDICAL | | | | | | CENTER - | | | | | | LABORATORY | | + + + + + + | % Monocytes | 13.8 (H) | 4.0 - 12.0 % | [facility] | | | | | | [facility] | | | | | | MEDICAL | | | | | | CENTER - | | | | | | LABORATORY | | + + + + + + | % | 3.9 | 0.0 - 5.0 % | [facility] | | | Eosinophils | | | [facility] | | | | | | MEDICAL | | | | | | CENTER - | | | | | | LABORATORY | | + + + + + + | % Basophils | 0.8 | 0.0 - 1.0 % | [facility] | | | | | | [facility] | | | | | | MEDICAL | | | | | | CENTER - | | | | | | LABORATORY | | + + + + + + | Absolute | 3.20 | 1.80 - 8.50 | [facility] | | | Neutrophils | | K/uL | [facility] | | | | | | MEDICAL | | | | | | CENTER - | | | | | | LABORATORY | | + + + + + + | Absolute | 0.80 | 0.60 - 3.20 | [facility] | | | Lymphocytes | | K/uL | [facility] | | | | | | MEDICAL | | | | | | CENTER - | | | | | | LABORATORY | | + + + + + + | Absolute | 0.70 | 0.00 - 1.00 | [facility] | | | Monocytes | | K/uL | [facility] | | | | | | MEDICAL | | | | | | CENTER - | | | | | | LABORATORY | | + + + + + + | Absolute | 0.20 | 0.00 - 0.40 | [facility] | | | Eosinophils | | K/uL | [facility] | | | | | | [facility] | | | | | | CENTER - | | | | | | LABORATORY | | + + + + + + | Absolute | 0.00 | 0.00 - 0.10 | [facility] | | | Basophils | | K/uL | [facility] | | | | | | [facility] | | | | | | CENTER - | | | | | | LABORATORY | | + + + + + + + + | Specimen | + + | Blood | + + + + + + + | Performing | Address | City/State/Zipcode | Phone Number | | Organization | | | | + + + + + | [facility] | [address] | [place] | [phone] | | [facility] | | [address] | | | - LABORATORY | | | | + + + + + Basic Metabolic Panel (08/13/2015 6:20 AM PST) + + + + + + | Component | Value | Ref Range | Performed | Pathologist | | | | | At | Signature | + + + + + + | Na | 138 | 136 - 149 | [facility] | | | | | mmol/L | [facility] | | | | | | MEDICAL | | | | | | CENTER - | | | | | | LABORATORY | | + + + + + + | K | 3.7 | 3.5 - 5.1 | [facility] | | | | | mmol/L | [facility] | | | | | | [facility]ICAL | | | | | | CENTER - | | | | | | LABORATORY | | + + + + + + | Cl | 104 | 98 - 109 mmol/L | [facility] | | | | | | [facility] | | | | | | [facility]ICAL | | | | | | CENTER - | | | | | | LABORATORY | | + + + + + + | CO2 | 26 | 24 - 31 mmol/L | [facility] | | | | | | [facility] | | | [facility] | | [facility] | | | | | | CENTER - | | | | | | LABORATORY | | + + + + + + | Anion Gap | 8 | 3 - 16 mmol/L | [facility] | | | | | | [facility] | | | | | | [facility] | | | | | | CENTER - | | | | | | LABORATORY | | + + + + + + | Glucose | 107 | 70 - 109 mg/dL | [facility] | | | | | | [facility] | | | | | | [facility] | | | | | | CENTER - | | | | | | LABORATORY | | + + + + + + | BUN | 4 (L) | 7 - 18 mg/dL | [facility] | | | | | | [facility] | | | | | | [facility] | | | | | | CENTER - | | | | | | LABORATORY | | + + + + + + | Creatinine | 0.50 (L) | 0.60 - 1.30 | [facility] | | | | | mg/dL | [facility] | | | | | | [facility]ICAL | | | | | | CENTER - | | | | | | LABORATORY | | + + + + + + | eGFR if not | >60Comment: GLOMERULAR | >=60 | [facility] | | | | FILTRATION | mL/min/1.73m2 | [facility] | | | ESTONIAN | RATE,ESTIMATED | | MEDICAL | | | | mL/min/1.65e8Bolj than | | CENTER - | | | | 60 Chronic kidney | | LABORATORY | | | | disease,if found over a | | | | | | 3-month period.Less than | | | | | | 15 Kidney failureFor | | | | | | | | | | | | Americans,multiply the | | | | | | calculated GFR by 1.21. | | | | | | | | | | + + + + + + | Calcium | 8.4 | 8.3 - 10.5 | [facility] | | | | | mg/dL | [facility] | | | | | | MEDICAL | | | | | | CENTER - | | | | | | LABORATORY | | + + + + + + | BUN/Creatin | 8.0 | | [facility] | | | ine Ratio | | | [facility] | | | | | | [facility] | | | | | | CENTER - | | | | | | LABORATORY | | + + + + + + + + | Specimen | + + | Blood | + + + + + + + | Performing | Address | City/State/Zipcode | Phone Number | | Organization | | | | + + + + + | [facility] | [address] | [place], [place] | [phone] | | [facility] | | [address] | | | - LABORATORY | | | | + + + + + CBC with Differential (08/12/2015 6:05 AM PST) + + + + + + | Component | Value | Ref Range | Performed | Pathologist | | | | | At | Signature | + + + + + + | White Blood | 5.9 | 4.0 - 11.0 K/uL | [facility] | | | Cells | | | [facility] | | | | | | [facility] | | | | | | [facility] - | | | | | | LABORATORY | | + + + + + + | Red Blood | 3.61 (L) | 4.30 - 5.70 | [facility] | | | Cells | | M/uL | [facility] | | | | | | [facility] | | | | | | [facility] - | | | | | | LABORATORY | | + + + + + + | Hemoglobin | 9.1 (L) | 13.5 - 18.0 | [facility] | | | | | g/dL | [facility] | | | | | | [facility] | | | | | | [facility] - | | | | | | LABORATORY | | + + + + + + | Hematocrit | 29.2 (L) | 40.0 - 51.0 % | [facility] | | | | | | [facility] | | | | | | [facility] | | | | | | [facility] - | | | | | | LABORATORY | | + + + + + + | MCV | 81.0 (L) | 83.0 - 101.0 fL | [facility] | | | | | | [facility] | | | | | | [facility] | | | | | | [facility] - | | | | | | LABORATORY | | + + + + + + | MCH | 25.3 (L) | 28.0 - 35.0 pg | [facility] | | | | | | [facility] | | | | | | [facility] | | | | | | [facility] - | | | | | | LABORATORY | | + + + + + + | MCHC | 31.2 (L) | 32.0 - 36.0 | [facility] | | | | | g/dL | [facility] | | | | | | [facility] | | | | | | [facility] - | | | | | | LABORATORY | | + + + + + + | RDW-CV | 26.2 (H) | <15.0 % | [facility] | | | | | | [facility] | | | | | | [facility] | | | | | | [facility] - | | | | | | LABORATORY | | + + + + + + | Platelet | 152 | 140 - 440 K/uL | [facility] | | | Count | | | [facility] | | | | | | [facility] | | | | | | [facility] - | | | | | | LABORATORY | | + + + + + + | MPV | 8.5 | fL | [facility] | | | | | | [facility] | | | | | | [facility] | | | | | | [facility] - | | | | | | LABORATORY | | + + + + + + | % | 76.2 | 45.0 - 82.0 % | [facility] | | | Neutrophils | | | [facility] | | | | | | [facility] | | | | | | [facility] - | | | | | | LABORATORY | | + + + + + + | % | 11.2 (L) | 20.0 - 45.0 % | [facility] | | | Lymphocytes | | | [facility] | | | | | | [facility] | | | | | | [facility] - | | | | | | LABORATORY | | + + + + + + | % Monocytes | 10.3 | 4.0 - 12.0 % | [facility] | | | | | | [facility] | | | | | | [facility] | | | | | | [facility] - | | | | | | LABORATORY | | + + + + + + | % | 1.8 | 0.0 - 5.0 % | [facility] | | | Eosinophils | | | [facility] | | | | | | [facility] | | | | | | [facility] - | | | | | | LABORATORY | | + + + + + + | % Basophils | 0.5 | 0.0 - 1.0 % | [facility] | | | | | | [facility] | | | | | | [facility] | | | | | | [facility] - | | | | | | LABORATORY | | + + + + + + | Absolute | 4.50 | 1.80 - 8.50 | [facility] | | | Neutrophils | | K/uL | [facility] | | | | | | [facility] | | | | | | [facility] - | | | | | | LABORATORY | | + + + + + + | Absolute | 0.70 | 0.60 - 3.20 | [facility] | | | Lymphocytes | | K/uL | [facility] | | | | | | [facility] | | | | | | [facility] - | | | | | | LABORATORY | | + + + + + + | Absolute | 0.60 | 0.00 - 1.00 | [facility] | | | Monocytes | | K/uL | [facility] | | | | | | [facility] | | | | | | [facility] - | | | | | | LABORATORY | | + + + + + + | Absolute | 0.10 | 0.00 - 0.40 | [facility] | | | Eosinophils | | K/uL | [facility] | | | | | | [facility] | | | | | | [facility] - | | | | | | LABORATORY | | + + + + + + | Absolute | 0.00 | 0.00 - 0.10 | [facility] | | | Basophils | | K/uL | [facility] | | | | | | [facility] | | | | | | [facility]ENTER - | | | | | | LABORATORY | | + + + + + + + + | Specimen | + + | Blood | + + + + + + + | Performing | Address | City/State/Zipcode | Phone Number | | Organization | | | | + + + + + | [facility] | [address] | [place] | [phone] | | [facility] | | [address] | | | - LABORATORY | | | | + + + + + Basic Metabolic Panel (08/12/2015 6:05 AM PST) + + + + + + | Component | Value | Ref Range | Performed | Pathologist | | | | | At | Signature | + + + + + + | Na | 139 | 136 - 149 | [facility] | | | | | mmol/L | [facility] | | | | | | [facility] | | | | | | CENTER - | | | | | | LABORATORY | | + + + + + + | K | 3.6 | 3.5 - 5.1 | [facility] | | | | | mmol/L | [facility] | | | | | | [facility] | | | | | | CENTER - | | | | | | LABORATORY | | + + + + + + | Cl | 107 | 98 - 109 mmol/L | [facility] | | | | | | [facility] | | | | | | [facility] | | | | | | CENTER - | | | | | | LABORATORY | | + + + + + + | CO2 | 25 | 24 - 31 mmol/L | [facility] | | | | | | [facility] | | | | | | [facility] | | | | | | [facility] - | | | | | | LABORATORY | | + + + + + + | Anion Gap | 7 | 3 - 16 mmol/L | [facility] | | | | | | [facility] | | | | | | [facility] | | | | | | CENTER - | | | | | | LABORATORY | | + + + + + + | Glucose | 99 | 70 - 109 mg/dL | [facility] | | | | | | [facility] | | | | | | [facility] | | | | | | [facility] - | | | | | | LABORATORY | | + + + + + + | BUN | 4 (L) | 7 - 18 mg/dL | [facility] | | | | | | [facility] | | | | | | [facility] | | | | | | [facility] - | | | | | | LABORATORY | | + + + + + + | Creatinine | 0.51 (L) | 0.60 - 1.30 | [facility] | | | | | mg/dL | [facility] | | | | | | [facility] | | | | | | C[facility] - | | | | | | LABORATORY | | + + + + + + | eGFR if not | >60Comment: GLOMERULAR | >=60 | [facility] | | | | FILTRATION | mL/min/1.73m2 | [facility] | | | [facility] | RATE,ESTIMATED | | MEDICAL | | | | mL/min/1.20h2Xliw than | | CENTER - | | | | 60 Chronic kidney | | LABORATORY | | | | disease,if found over a | | | | | | 3-month period.Less than | | | | | | 15 Kidney failureFor | | | | | | | | | | | | Americans,multiply the | | | | | | calculated GFR by 1.21. | | | | | | | | | | + + + + + + | Calcium | 8.5 | 8.3 - 10.5 | [facility] | | | | | mg/dL | [facility] | | | | | | [facility] | | | | | | CENTER - | | | | | | LABORATORY | | + + + + + + | BUN/Creatin | 7.8 | | [facility] | | | ine Ratio | | | [facility] | | | | | | [facility] | | | | | | CENTER - | | | | | | LABORATORY | | + + + + + + + + | Specimen | + + | Blood | + + + + + + + | Performing | Address | City/State/Zipcode | Phone Number | | Organization | | | | + + + + + | [facility] | [address] | [place] | [phone] | | [facility] | | [address] | | | - LABORATORY | | | | + + + + + CBC with Differential (08/11/2015 6:04 AM PST) + + + + + + | Component | Value | Ref Range | Performed | Pathologist | | | | | At | Signature | + + + + + + | White Blood | 7.1 | 4.0 - 11.0 K/uL | [facility] | | | Cells | | | [facility] | | | | | | [facility] | | | | | | CENTER - | | | | | | LABORATORY | | + + + + + + | Red Blood | 3.53 (L) | 4.30 - 5.70 | [facility] | | | Cells | | M/uL | [facility] | | | | | | MEDICAL | | | | | | CENTER - | | | | | | LABORATORY | | + + + + + + | Hemoglobin | 8.7 (L) | 13.5 - 18.0 | [facility] | | | | | g/dL | [facility] | | | | | | MEDICAL | | | | | | CENTER - | | | | | | LABORATORY | | + + + + + + | Hematocrit | 28.3 (L) | 40.0 - 51.0 % | [facility] | | | | | | [facility] | | | | | | [facility] | | | | | | CENTER - | | | | | | LABORATORY | | + + + + + + | MCV | 80.2 (L) | 83.0 - 101.0 fL | [facility] | | | | | | [facility] | | | | | | [facility] | | | | | | CENTER - | | | | | | LABORATORY | | + + + + + + | MCH | 24.7 (L) | 28.0 - 35.0 pg | [facility] | | | | | | [facility] | | | | | | [facility] | | | | | | CENTER - | | | | | | LABORATORY | | + + + + + + | MCHC | 30.8 (L) | 32.0 - 36.0 | [facility] | | | | | g/dL | [facility] | | | | | | MEDICAL | | | | | | CENTER - | | | | | | LABORATORY | | + + + + + + | RDW-CV | 25.3 (H) | <15.0 % | [facility] | | | | | | [facility] | | | | | | [facility] | | | | | | CENTER - | | | | | | LABORATORY | | + + + + + + | Platelet | 133 (L) | 140 - 440 K/uL | [facility] | | | Count | | | [facility] | | | | | | [facility] | | | | | | CENTER - | | | | | | LABORATORY | | + + + + + + | MPV | 8.5 | fL | [facility] | | | | | | [facility] | | | | | | [facility] | | | | | | CENTER - | | | | | | LABORATORY | | + + + + + + | % | 77.6 | 45.0 - 82.0 % | [facility] | | | Neutrophils | | | [facility] | | | | | | [facility]ICAL | | | | | | CENTER - | | | | | | LABORATORY | | + + + + + + | % | 9.0 (L) | 20.0 - 45.0 % | [facility] | | | Lymphocytes | | | [facility] | | | | | | [facility]ICAL | | | | | | CENTER - | | | | | | LABORATORY | | + + + + + + | % Monocytes | 11.4 | 4.0 - 12.0 % | [facility] | | | | | | [facility] | | | | | | [facility] | | | | | | CENTER - | | | | | | LABORATORY | | + + + + + + | % | 1.5 | 0.0 - 5.0 % | [facility] | | | Eosinophils | | | [facility] | | | | | | [facility] | | | | | | CENTER - | | | | | | LABORATORY | | + + + + + + | % Basophils | 0.5 | 0.0 - 1.0 % | [facility] | | | | | | [facility] | | | | | | [facility] | | | | | | CENTER - | | | | | | LABORATORY | | + + + + + + | Absolute | 5.50 | 1.80 - 8.50 | [facility] | | | Neutrophils | | K/uL | [facility] | | | | | | MEDICAL | | | | | | CENTER - | | | | | | LABORATORY | | + + + + + + | Absolute | 0.60 | 0.60 - 3.20 | [facility] | | | Lymphocytes | | K/uL | [facility] | | | | | | [facility] | | | | | | CENTER - | | | | | | LABORATORY | | + + + + + + | Absolute | 0.80 | 0.00 - 1.00 | [facility] | | | Monocytes | | K/uL | [facility] | | | | | | [facility]ICAL | | | | | | CENTER - | | | | | | LABORATORY | | + + + + + + | Absolute | 0.10 | 0.00 - 0.40 | [facility] | | | Eosinophils | | K/uL | [facility] | | | | | | [facility]ICAL | | | | | | CENTER - | | | | | | LABORATORY | | + + + + + + | Absolute | 0.00 | 0.00 - 0.10 | [facility] | | | Basophils | | K/uL | [facility] | | | | | | MEDICAL | | | | | | CENTER - | | | | | | LABORATORY | | + + + + + + + + | Specimen | + + | Blood | + + + + + + + | Performing | Address | City/State/Zipcode | Phone Number | | Organization | | | | + + + + + | [facility] | [address] | [place] | [phone] | | [facility] | | [address] | | | - LABORATORY | | | | + + + + + Basic Metabolic Panel (08/11/2015 6:04 AM PST) + + + + + + | Component | Value | Ref Range | Performed | Pathologist | | | | | At | Signature | + + + + + + | Na | 136 | 136 - 149 | [facility] | | | | | mmol/L | [facility] | | | | | | MEDICAL | | | | | | CENTER - | | | | | | LABORATORY | | + + + + + + | K | 3.3 (L) | 3.5 - 5.1 | [facility] | | | | | mmol/L | [facility] | | | | | | MEDICAL | | | | | | CENTER - | | | | | | LABORATORY | | + + + + + + | Cl | 106 | 98 - 109 mmol/L | [facility] | | | | | | [facility] | | | | | | [facility] | | | | | | CENTER - | | | | | | LABORATORY | | + + + + + + | CO2 | 23 (L) | 24 - 31 mmol/L | [facility] | | | | | | [facility] | | | | | | [facility]ICAL | | | | | | CENTER - | | | | | | LABORATORY | | + + + + + + | Anion Gap | 7 | 3 - 16 mmol/L | [facility] | | | | | | [facility] | | | | | | MEDICAL | | | | | | CENTER - | | | | | | LABORATORY | | + + + + + + | Glucose | 106 | 70 - 109 mg/dL | [facility] | | | | | | [facility] | | | | | | [facility] | | | | | | CENTER - | | | | | | LABORATORY | | + + + + + + | BUN | 5 (L) | 7 - 18 mg/dL | [facility] | | | | | | [facility] | | | | | | [facility] | | | | | | CENTER - | | | | | | LABORATORY | | + + + + + + | Creatinine | 0.50 (L) | 0.60 - 1.30 | [facility] | | | | | mg/dL | [facility] | | | | | | MEDICAL | | | | | | CENTER - | | | | | | LABORATORY | | + + + + + + | eGFR if not | >60Comment: GLOMERULAR | >=60 | [facility] | | | | FILTRATION | mL/min/1.73m2 | [facility] | | | ESTONIAN | RATE,ESTIMATED | | MEDICAL | | | | mL/min/1.33s1Miyf than | | CENTER - | | | | 60 Chronic kidney | | LABORATORY | | | | disease,if found over a | | | | | | 3-month period.Less than | | | | | | 15 Kidney failureFor | | | | | | | | | | | | Americans,multiply the | | | | | | calculated GFR by 1.21. | | | | | | | | | | + + + + + + | Calcium | 7.8 (L) | 8.3 - 10.5 | [facility] | | | | | mg/dL | [facility] | | | | | | [facility] | | | | | | CENTER - | | | | | | LABORATORY | | + + + + + + | BUN/Creatin | 10.0 | | [facility] | | | ine Ratio | | | [facility] | | | | | | MEDICAL | | | | | | CENTER - | | | | | | LABORATORY | | + + + + + + + + | Specimen | + + | Blood | + + + + + + + | Performing | Address | City/State/Zipcode | Phone Number | | Organization | | | | + + + + + | [facility] | [address] | [place] | [phone] | | [facility] | | [address] | | | - LABORATORY | | | | + + + + + CBC with Differential (08/10/2015 6:29 AM PST) + + + + + + | Component | Value | Ref Range | Performed | Pathologist | | | | | At | Signature | + + + + + + | White Blood | 8.6 | 4.0 - 11.0 K/uL | [facility] | | | Cells | | | [facility] | | | | | | [facility]ICAL | | | | | | CENTER - | | | | | | LABORATORY | | + + + + + + | Red Blood | 3.64 (L) | 4.30 - 5.70 | [facility] | | | Cells | | M/uL | [facility] | | | | | | MEDICAL | | | | | | CENTER - | | | | | | LABORATORY | | + + + + + + | Hemoglobin | 9.1 (L) | 13.5 - 18.0 | [facility] | | | | | g/dL | [facility] | | | | | | MEDICAL | | | | | | CENTER - | | | | | | LABORATORY | | + + + + + + | Hematocrit | 29.7 (L) | 40.0 - 51.0 % | [facility] | | | | | | [facility] | | | | | | [facility]ICAL | | | | | | CENTER - | | | | | | LABORATORY | | + + + + + + | MCV | 81.6 (L) | 83.0 - 101.0 fL | [facility] | | | | | | [facility] | | | | | | [facility]ICAL | | | | | | CENTER - | | | | | | LABORATORY | | + + + + + + | MCH | 25.0 (L) | 28.0 - 35.0 pg | [facility] | | | | | | [facility] | | | | | | [facility] | | | | | | CENTER - | | | | | | LABORATORY | | + + + + + + | MCHC | 30.6 (L) | 32.0 - 36.0 | [facility] | | | | | g/dL | [facility] | | | | | | MEDICAL | | | | | | CENTER - | | | | | | LABORATORY | | + + + + + + | RDW-CV | 26.5 (H) | <15.0 % | [facility] | | | | | | [facility] | | | | | | [facility] | | | | | | CENTER - | | | | | | LABORATORY | | + + + + + + | Platelet | 116 (L) | 140 - 440 K/uL | [facility] | | | Count | | | [facility] | | | | | | [facility] | | | | | | CENTER - | | | | | | LABORATORY | | + + + + + + | MPV | 8.4 | fL | [facility] | | | | | | [facility] | | | [facility] | | [facility] | | | | | | CENTER - | | | | | | LABORATORY | | + + + + + + | % | 76.3 | 45.0 - 82.0 % | [facility] | | | Neutrophils | | | [facility] | | | | | | [facility]ICAL | | | | | | CENTER - | | | | | | LABORATORY | | + + + + + + | % | 9.5 (L) | 20.0 - 45.0 % | [facility] | | | Lymphocytes | | | [facility] | | | | | | [facility]ICAL | | | | | | CENTER - | | | | | | LABORATORY | | + + + + + + | % Monocytes | 13.4 (H) | 4.0 - 12.0 % | [facility] | | | | | | [facility] | | | | | | [facility] | | | | | | CENTER - | | | | | | LABORATORY | | + + + + + + | % | 0.6 | 0.0 - 5.0 % | [facility] | | | Eosinophils | | | [facility] | | | | | | MEDICAL | | | | | | CENTER - | | | | | | LABORATORY | | + + + + + + | % Basophils | 0.2 | 0.0 - 1.0 % | [facility] | | | | | | [facility] | | | | | | [facility] | | | | | | CENTER - | | | | | | LABORATORY | | + + + + + + | Absolute | 6.60 | 1.80 - 8.50 | [facility] | | | Neutrophils | | K/uL | [facility] | | | | | | MEDICAL | | | | | | CENTER - | | | | | | LABORATORY | | + + + + + + | Absolute | 0.80 | 0.60 - 3.20 | [facility] | | | Lymphocytes | | K/uL | [facility] | | | | | | MEDICAL | | | | | | CENTER - | | | | | | LABORATORY | | + + + + + + | Absolute | 1.20 (H) | 0.00 - 1.00 | [facility] | | | Monocytes | | K/uL | [facility] | | | | | | [facility]ICAL | | | | | | CENTER - | | | | | | LABORATORY | | + + + + + + | Absolute | 0.00 | 0.00 - 0.40 | [facility] | | | Eosinophils | | K/uL | [facility] | | | | | | MEDICAL | | | | | | CENTER - | | | | | | LABORATORY | | + + + + + + | Absolute | 0.00 | 0.00 - 0.10 | [facility] | | | Basophils | | K/uL | [facility] | | | | | | MEDICAL | | | | | | CENTER - | | | | | | LABORATORY | | + + + + + + + + | Specimen | + + | Blood | + + + + + + + | Performing | Address | City/State/Zipcode | Phone Number | | Organization | | | | + + + + + | [facility] | [address] | [place] | [phone] | | [facility] | | [address] | | | - LABORATORY | | | | + + + + + Basic Metabolic Panel (08/10/2015 6:29 AM PST) + + + + + + | Component | Value | Ref Range | Performed | Pathologist | | | | | At | Signature | + + + + + + | Na | 140 | 136 - 149 | [facility] | | | | | mmol/L | [facility] | | | | | | [facility]ICAL | | | | | | CENTER - | | | | | | LABORATORY | | + + + + + + | K | 3.4 (L) | 3.5 - 5.1 | [facility] | | | | | mmol/L | [facility] | | | | | | MEDICAL | | | | | | CENTER - | | | | | | LABORATORY | | + + + + + + | Cl | 114 (H) | 98 - 109 mmol/L | [facility] | | | | | | [facility] | | | | | | MED[facility] | | | | | | CENTER - | | | | | | LABORATORY | | + + + + + + | CO2 | 21 (L) | 24 - 31 mmol/L | [facility] | | | | | | [facility] | | | | | | MEDICAL | | | | | | CENTER - | | | | | | LABORATORY | | + + + + + + | Anion Gap | 5 | 3 - 16 mmol/L | [facility] | | | | | | [facility] | | | | | | [facility] | | | | | | CENTER - | | | | | | LABORATORY | | + + + + + + | Glucose | 110 (H) | 70 - 109 mg/dL | [facility] | | | | | | [facility] | | | | | | [facility] | | | | | | CENTER - | | | | | | LABORATORY | | + + + + + + | BUN | 7 | 7 - 18 mg/dL | [facility] | | | | | | [facility] | | | | | | [facility] | | | | | | CENTER - | | | | | | LABORATORY | | + + + + + + | Creatinine | 0.56 (L) | 0.60 - 1.30 | [facility] | | | | | mg/dL | [facility] | | | | | | [facility] | | | | | | CENTER - | | | | | | LABORATORY | | + + + + + + | eGFR if not | >60Comment: GLOMERULAR | >=60 | [facility] | | | | FILTRATION | mL/min/1.73m2 | [facility] | | | ESTONIAN | RATE,ESTIMATED | | MEDICAL | | | | mL/min/1.02u0Ugly than | | CENTER - | | | | 60 Chronic kidney | | LABORATORY | | | | disease,if found over a | | | | | | 3-month period.Less than | | | | | | 15 Kidney failureFor | | | | | | | | | | | | Americans,multiply the | | | | | | calculated GFR by 1.21. | | | | | | | | | | + + + + + + | Calcium | 8.0 (L) | 8.3 - 10.5 | [facility] | | | | | mg/dL | [facility] | | | | | | MEDICAL | | | | | | CENTER - | | | | | | LABORATORY | | + + + + + + | BUN/Creatin | 12.5 | | [facility] | | | ine Ratio | | | [facility] | | | | | | MEDICAL | | | | | | CENTER - | | | | | | LABORATORY | | + + + + + + + + | Specimen | + + | Blood | + + + + + + + | Performing | Address | City/State/Zipcode | Phone Number | | Organization | | | | + + + + + | [facility] | [address] | [place] | [phone] | | [facility] | | [address] | | | - LABORATORY | | | | + + + + + Magnesium (08/10/2015 6:29 AM PST) + +-------+ + + + | Component | Value | Ref Range | Performed | Pathologist | | | | | At | Signature | + +-------+ + + + | Magnesium | 2.4 | 1.8 - 2.5 mg/dL | [facility] | | | | | | [facility] | | | | | | [facility] | | | | | | CENTER - | | | | | | LABORATORY | | + +-------+ + + + + + | Specimen | + + | Blood | + + + + + + + | Performing | Address | City/State/Zipcode | Phone Number | | Organization | | | | + + + + + | [facility] | [address] | [place] | [phone] | | [facility] | | [address] | | | - LABORATORY | | | | + + + + + Culture, Urine (08/09/2015 11:24 PM PST) + + + + + + | Component | Value | Ref Range | Performed | Pathologist | | | | | At | Signature | + + + + + + | Culture | No Growth | | [facility] | | | | | | [facility] | | | | | | [facility] | | | | | | CENTER - | | | | | | LABORATORY | | + + + + + + + + | Specimen | + + | Urine | + + + + + + + | Performing | Address | City/State/Zipcode | Phone Number | | Organization | | | | + + + + + | [facility] | [address] | [place] | [phone] | | [facility] | | [address] | | | - LABORATORY | | | | + + + + + Urinalysis with Microscopic with Culture if Indicated (08/09/2015 11:24 PM PST) + + + + + + | Component | Value | Ref Range | Performed | Pathologist | | | | | At | Signature | + + + + + + | Color, | Yellow | Light Yellow, | [facility] | | | Urine | | Yellow | [facility] | | | | | | MEDICAL | | | | | | CENTER - | | | | | | LABORATORY | | + + + + + + | Clarity, | Clear | Clear | [facility] | | | Urine | | | [facility] | | | | | | MEDICAL | | | | | | CENTER - | | | | | | LABORATORY | | + + + + + + | pH, Urine | 6.0 | 5.0 - 8.0 | [facility] | | | | | | [facility] | | | | | | MEDICAL | | | | | | CENTER - | | | | | | LABORATORY | | + + + + + + | Specific | 1.010 | 1.001 - 1.030 | [facility] | | | [place], | | | [facility] | | | Urine | | | MEDICAL | | | | | | CENTER - | | | | | | LABORATORY | | + + + + + + | Protein, | Negative | Negative | [facility] | | | Urine | | | [facility] | | | | | | MEDICAL | | | | | | CENTER - | | | | | | LABORATORY | | + + + + + + | Blood, | Moderate (A) | Negative | [facility] | | | Urine | | | [facility] | | | | | | MEDICAL | | | | | | CENTER - | | | | | | LABORATORY | | + + + + + + | Glucose, | Negative | Negative | [facility] | | | Urine | | | [facility] | | | | | | MEDICAL | | | | | | CENTER - | | | | | | LABORATORY | | + + + + + + | Ketones, | Negative | Negative | [facility] | | | Urine | | | [facility] | | | | | | MEDICAL | | | | | | CENTER - | | | | | | LABORATORY | | + + + + + + | Bilirubin, | Negative | Negative | [facility] | | | Urine | | | [facility] | | | | | | MEDICAL | | | | | | CENTER - | | | | | | LABORATORY | | + + + + + + | Nitrite, | Negative | Negative | [facility] | | | Urine | | | [facility] | | | | | | MEDICAL | | | | | | CENTER - | | | | | | LABORATORY | | + + + + + + | Leukocyte | Trace (A) | Negative | [facility] | | | Esterase, | | | [facility] | | | Urine | | | MEDICAL | | | | | | CENTER - | | | | | | LABORATORY | | + + + + + + | Urobilinoge | 4.0 E.U./dL (A) | 0.2 E.U./dL, | [facility] | | | n, Urine | | 1.0 E.U./dL | [facility] | | | | | | MEDICAL | | | | | | CENTER - | | | | | | LABORATORY | | + + + + + + | White Blood | 10-15 (A) | 0 - 2 /HPF | [facility] | | | Cells, | | | [facility] | | | Urine | | | MEDICAL | | | | | | CENTER - | | | | | | LABORATORY | | + + + + + + | Red Blood | 0-2 | 0 - 2 /HPF | [facility] | | | Cells, | | | [facility] | | | Urine | | | MEDICAL | | | | | | CENTER - | | | | | | LABORATORY | | + + + + + + | Squamous | 2-5 (A) | 0 - 2 /LPF | [facility] | | | Epithelial | | | [facility] | | | Cells, | | | MEDICAL | | | Urine | | | CENTER - | | | | | | LABORATORY | | + + + + + + | Bacteria, | Negative | Negative /HPF | [facility] | | | Urine | | | [facility] | | | | | | MEDICAL | | | | | | CENTER - | | | | | | LABORATORY | | + + + + + + + + | Specimen | + + | Urine | + + + + + + + | Performing | Address | City/State/Zipcode | Phone Number | | Organization | | | | + + + + + | [facility] | [address] | [place] | [phone] | | [facility] | | [address] | | | - LABORATORY | | | | + + + + + Slide Review, Peripheral Smear (08/09/2015 10:55 PM PST) + + + + + + | Component | Value | Ref Range | Performed | Pathologist | | | | | At | Signature | + + + + + + | WBC | Normal | | [facility] | | | Morphology | | | [facility] | | | | | | MEDICAL | | | | | | CENTER - | | | | | | LABORATORY | | + + + + + + | Platelet | Decreased (A) | Adequate | [facility] | | | Estimate | | | [facility] | | | | | | MEDICAL | | | | | | CENTER - | | | | | | LABORATORY | | + + + + + + | Hypochromas | Slight (A) | (none) | [facility] | | | ia | | | [facility] | | | | | | MEDICAL | | | | | | CENTER - | | | | | | LABORATORY | | + + + + + + | Anisocytosi | Moderate (A) | (none) | [facility] | | | s | | | [facility] | | | | | | MEDICAL | | | | | | CENTER - | | | | | | LABORATORY | | + + + + + + + + | Specimen | + + | Blood | + + + + + + + | Performing | Address | City/State/Zipcode | Phone Number | | Organization | | | | + + + + + | [facility] | [address] | [place] | [phone] | | [facility] | | [address] | | | - LABORATORY | | | | + + + + + Magnesium (08/09/2015 10:55 PM PST) + +-------+ + + + | Component | Value | Ref Range | Performed | Pathologist | | | | | At | Signature | + +-------+ + + + | Magnesium | 2.3 | 1.8 - 2.5 mg/dL | [facility] | | | | | | [facility] | | | | | | MEDICAL | | | | | | CENTER - | | | | | | LABORATORY | | + +-------+ + + + + + | Specimen | + + | Blood | + + + + + + + | Performing | Address | City/State/Zipcode | Phone Number | | Organization | | | | + + + + + | [facility] | [address] | [place] | [phone] | | [facility] | | [address] | | | - LABORATORY | | | | + + + + + Lactic Acid (08/09/2015 10:55 PM PST) + +-------+ + + + | Component | Value | Ref Range | Performed | Pathologist | | | | | At | Signature | + +-------+ + + + | Lactate | 1.0 | 0.5 - 2.2 | [facility] | | | | | mmol/L | [facility] | | | | | | MEDICAL | | | | | | CENTER - | | | | | | LABORATORY | | + +-------+ + + + + + | Specimen | + + | Blood | + + + + + + + | Performing | Address | City/State/Zipcode | Phone Number | | Organization | | | | + + + + + | [facility] | [address] | [place] | [phone] | | [facility] | | [address] | | | - LABORATORY | | | | + + + + + Basic Metabolic Panel (08/09/2015 10:55 PM PST) + + + + + + | Component | Value | Ref Range | Performed | Pathologist | | | | | At | Signature | + + + + + + | Na | 137 | 136 - 149 | [facility] | | | | | mmol/L | [facility] | | | | [facility] | [facility] | | | | | [facility] - | | | | | | LABORATORY | | + + + + + + | K | 3.3 (L) | 3.5 - 5.1 | [facility] | | | | | mmol/L | [facility] | | | | | | [facility] | | | | | | CENTER - | | | | | | LABORATORY | | + + + + + + | Cl | 111 (H) | 98 - 109 mmol/L | [facility] | | | | | | [facility] | | | | | | [facility] | | | | | | CENTER - | | | | | | LABORATORY | | + + + + + + | CO2 | 20 (L) | 24 - 31 mmol/L | [facility] | | | | | | [facility] | | | | | | MEDICAL | | | | | | CENTER - | | | | | | LABORATORY | | + + + + + + | Anion Gap | 6 | 3 - 16 mmol/L | [facility] | | | | | | [facility] | | | | | | [facility] | | | | | | CENTER - | | | | | | LABORATORY | | + + + + + + | Glucose | 136 (H) | 70 - 109 mg/dL | [facility] | | | | | | [facility] | | | | | | MEDICAL | | | | | | CENTER - | | | | | | LABORATORY | | + + + + + + | BUN | 7 | 7 - 18 mg/dL | [facility] | | | | | | [facility] | | | | | | [facility] | | | | | | CENTER - | | | | | | LABORATORY | | + + + + + + | Creatinine | 0.59 (L) | 0.60 - 1.30 | [facility] | | | | | mg/dL | [facility] | | | | | | [facility] | | | | | | CENTER - | | | | | | LABORATORY | | + + + + + + | eGFR if not | >60Comment: GLOMERULAR | >=60 | [facility] | | | | FILTRATION | mL/min/1.73m2 | [facility] | | | ESTONIAN | RATE,ESTIMATED | | MEDICAL | | | | mL/min/1.36b4Cnlo than | | CENTER - | | | | 60 Chronic kidney | | LABORATORY | | | | disease,if found over a | | | | | | 3-month period.Less than | | | | | | 15 Kidney failureFor | | | | | | | | | | | | Americans,multiply the | | | | | | calculated GFR by 1.21. | | | | | | | | | | + + + + + + | Calcium | 8.1 (L) | 8.3 - 10.5 | [facility] | | | | | mg/dL | [facility] | | | | | | MEDICAL | | | | | | CENTER - | | | | | | LABORATORY | | + + + + + + | BUN/Creatin | 11.9 | | [facility] | | | ine Ratio | | | [facility] | | | | | | MEDICAL | | | | | | CENTER - | | | | | | LABORATORY | | + + + + + + + + | Specimen | + + | Blood | + + + + + + + | Performing | Address | City/State/Zipcode | Phone Number | | Organization | | | | + + + + + | [facility] | [address] | [place] | [phone] | | [facility] | | [address] | | | - LABORATORY | | | | + + + + + CBC with Differential (08/09/2015 10:55 PM PST) + + + + + + | Component | Value | Ref Range | Performed | Pathologist | | | | | At | Signature | + + + + + + | White Blood | 12.2 (H) | 4.0 - 11.0 K/uL | [facility] | | | Cells | | | [facility] | | | | | | MEDICAL | | | | | | CENTER - | | | | | | LABORATORY | | + + + + + + | Red Blood | 3.70 (L) | 4.30 - 5.70 | [facility] | | | Cells | | M/uL | [facility] | | | | | | MEDICAL | | | | | | CENTER - | | | | | | LABORATORY | | + + + + + + | Hemoglobin | 9.0 (L) | 13.5 - 18.0 | [facility] | | | | | g/dL | [facility] | | | | | | MEDICAL | | | | | | CENTER - | | | | | | LABORATORY | | + + + + + + | Hematocrit | 29.9 (L) | 40.0 - 51.0 % | [facility] | | | | | | [facility] | | | | | | MEDICAL | | | | | | CENTER - | | | | | | LABORATORY | | + + + + + + | MCV | 80.8 (L) | 83.0 - 101.0 fL | [facility] | | | | | | [facility] | | | | | | MEDICAL | | | | | | CENTER - | | | | | | LABORATORY | | + + + + + + | MCH | 24.4 (L) | 28.0 - 35.0 pg | [facility] | | | | | | [facility] | | | | | | MEDICAL | | | | | | CENTER - | | | | | | LABORATORY | | + + + + + + | MCHC | 30.2 (L) | 32.0 - 36.0 | [facility] | | | | | g/dL | [facility] | | | | | | MEDICAL | | | | | | CENTER - | | | | | | LABORATORY | | + + + + + + | RDW-CV | 26.4 (H) | <15.0 % | [facility] | | | | | | [facility] | | | | | | MEDICAL | | | | | | CENTER - | | | | | | LABORATORY | | + + + + + + | Platelet | 109 (L) | 140 - 440 K/uL | [facility] | | | Count | | | [facility] | | | | | | MEDICAL | | | | | | CENTER - | | | | | | LABORATORY | | + + + + + + | MPV | 8.6 | fL | [facility] | | | | | | [facility] | | | | | | MEDICAL | | | | | | CENTER - | | | | | | LABORATORY | | + + + + + + | % | 88.4 (H) | 45.0 - 82.0 % | [facility] | | | Neutrophils | | | [facility] | | | | | | MEDICAL | | | | | | CENTER - | | | | | | LABORATORY | | + + + + + + | % | 3.4 (L) | 20.0 - 45.0 % | [facility] | | | Lymphocytes | | | [facility] | | | | | | MEDICAL | | | | | | CENTER - | | | | | | LABORATORY | | + + + + + + | % Monocytes | 8.1 | 4.0 - 12.0 % | [facility] | | | | | | [facility] | | | | | | MEDICAL | | | | | | CENTER - | | | | | | LABORATORY | | + + + + + + | % | 0.0 | 0.0 - 5.0 % | [facility] | | | Eosinophils | | | [facility] | | | | | | MEDICAL | | | | | | CENTER - | | | | | | LABORATORY | | + + + + + + | % Basophils | 0.1 | 0.0 - 1.0 % | [facility] | | | | | | [facility] | | | | | | MEDICAL | | | | | | CENTER - | | | | | | LABORATORY | | + + + + + + | Absolute | 10.80 (H) | 1.80 - 8.50 | [facility] | | | Neutrophils | | K/uL | [facility] | | | | | | MEDICAL | | | | | | CENTER - | | | | | | LABORATORY | | + + + + + + | Absolute | 0.40 (L) | 0.60 - 3.20 | [facility] | | | Lymphocytes | | K/uL | [facility] | | | | | | MEDICAL | | | | | | CENTER - | | | | | | LABORATORY | | + + + + + + | Absolute | 1.00 | 0.00 - 1.00 | [facility] | | | Monocytes | | K/uL | [facility] | | | | | | MEDICAL | | | | | | CENTER - | | | | | | LABORATORY | | + + + + + + | Absolute | 0.00 | 0.00 - 0.40 | [facility] | | | Eosinophils | | K/uL | [facility] | | | | | | MEDICAL | | | | | | CENTER - | | | | | | LABORATORY | | + + + + + + | Absolute | 0.00 | 0.00 - 0.10 | [facility] | | | Basophils | | K/uL | [facility] | | | | | | MEDICAL | | | | | | CENTER - | | | | | | LABORATORY | | + + + + + + + + | Specimen | + + | Blood | + + + + + + + | Performing | Address | City/State/Zipcode | Phone Number | | Organization | | | | + + + + + | [facility] | [address] | [place], [place] | [phone] | | [facility] | | [address] | | | - LABORATORY | | | | + + + + + documented in this encounter Visit Diagnoses + + | Diagnosis | + + | Sepsis due to Escherichia coli (E. coli) ([facility]) - Primary Other septicemia due to | | gram-negative organism | + + | Alcoholism ([facility]) Other and unspecified alcohol dependence, unspecified drinking | | behavior | + + | Hypokalemia Hypopotassemia | + + | Pyelonephritis Pyelonephritis, unspecified | + + | Sepsis, due to unspecified organism | + + | Falls, subsequent encounter | + + | Sepsis, Gram negative (HCC) Septicemia due to gram-negative organism, unspecified | + + | Shoulder pain Pain in joint, shoulder region | + + | Hypomagnesemia Disorders of magnesium metabolism | + + documented in this encounter Admitting Diagnoses + + | Diagnosis | + + | Sepsis (HCC) | + + documented in this encounter Administered Medications + +---------+ +------+-------+------+ | Medication Order | MAR | Action | Dose | Rate | Site | | | Action | Date | | | | + +---------+ +------+-------+------+ | cefTRIAXone (ROCEPHIN) 2 g in | New Bag | 08/13/20 | 2 g | 100 | | | sodium chloride 0.9% 50 mL IVPB | | 15 8:40 | | mL/hr | | | 2 g, Intravenous, Administer over | | AM PST | | | | | 30 Minutes, EVERY 24 HOURS | | | | | | | (Daily), First dose on Fri | | | | | | | 08/09/15 at 2230, Activate system | | | | | | | and mix before use., | | | | | | + +---------+ +------+-------+------+ +---------+ +-----+-------+---+ | New Bag | 08/12/20 | 2 g | 100 | | | | 15 8:51 | | mL/hr | | | | AM PST | | | | +---------+ +-----+-------+---+ | New Bag | 08/11/20 | 2 g | 100 | | | | 15 9:58 | | mL/hr | | | | AM PST | | | | +---------+ +-----+-------+---+ +---+---+ | | | +---+---+ + +-------+ +-------+---+ + | enoxaparin (LOVENOX) 40 mg/0.4 | Given | 08/14/20 | 40 mg | | Abdomen- | | mL injection 40 mg 40 mg, | | 15 8:28 | | | LLQ | | Subcutaneous, EVERY 24 HOURS | | AM PST | | | | | (Daily), First dose on Sat | | | | | | | 08/10/15 at 0900 | | | | | | + +-------+ +-------+---+ + +-------+ +-------+---+ + | Given | 08/13/20 | 40 mg | | Abdomen- | | | 15 8:40 | | | RLQ | | | AM PST | | | | +-------+ +-------+---+ + | Given | 08/12/20 | 40 mg | | Abdomen- | | | 15 8:51 | | | RLQ | | | AM PST | | | | +-------+ +-------+---+ + +---+---+ | | | +---+---+ + +-------+ + +---+---+ | HYDROcodone-acetaminophen | Given | 08/13/20 | 1 tablet | | | | (NORCO) 5-325 mg per tablet 1-2 | | 15 10:40 | | | | | tablet 1-2 tablet, Oral, EVERY 4 | | PM PST | | | | | HOURS PRN, Pain, Starting Fri | | | | | | | 08/09/15 at 2230, If ineffective | | | | | | | use Marvin 10/325 if ordered. If | | | | | | | not tolerated, use Percocet then | | | | | | | Oxycodone if ordered., | | | | | | + +-------+ + +---+---+ +-------+ + +---+---+ | Given | 08/13/20 | 1 tablet | | | | | 15 9:41 | | | | | | PM PST | | | | +-------+ + +---+---+ | Given | 08/13/20 | 2 | | | | | 15 5:11 | tablets | | | | | AM PST | | | | +-------+ + +---+---+ +---+---+ | | | +---+---+ + +-------+ + +---+---+ | levETIRAcetam (KEPPRA) tablet | Given | 08/14/20 | 1,000 mg | | | | 1,000 mg 1,000 mg, Oral, 2 TIMES | | 15 8:30 | | | | | DAILY, First dose on Wed | | AM PST | | | | | 08/09/15 at 2300, Tablet may be | | | | | | | cut where scored but do not | | | | | | | crush., | | | | | | + +-------+ + +---+---+ +-------+ + +---+---+ | Given | 08/13/20 | 1,000 mg | | | | | 15 9:35 | | | | | | PM PST | | | | +-------+ + +---+---+ | Given | 08/13/20 | 1,000 mg | | | | | 15 8:40 | | | | | | AM PST | | | | +-------+ + +---+---+ +---+---+ | | | +---+---+ + +-------+ +--------+---+---+ | levofloxacin (LEVAQUIN) tablet | Given | 08/14/20 | 750 mg | | | | 750 mg 750 mg, Oral, DAILY, | | 15 11:54 | | | | | First dose on Wed08/14/15 at | | AM PST | | | | | 1045, Give 2 hours before or 2 | | | | | | | hours after antacids, iron, or | | | | | | | zinc., | | | | | | + +-------+ +--------+---+---+ +---+---+ | | | +---+---+ + +-------+ +--------+---+---+ | magnesium hydroxide (MILK OF | Given | 08/14/20 | 30 mLs | | | | MAGNESIA) 400 mg/5 mL suspension | | 15 8:28 | | | | | 30 mL 30 mL, Oral, NIGHTLY PRN, | | AM PST | | | | | Constipation, Starting Fri | | | | | | | 08/09/15 at 2230, If docusate, | | | | | | | senna, and polyethylene glycol | | | | | | | ineffective x 24 hours or not | | | | | | | ordered, | | | | | | + +-------+ +--------+---+---+ +---+---+ | | | +---+---+ + +---------+ +-----+ +---+ | magnesium sulfate 2 g/50 mL | New Bag | 08/14/20 | 2 g | 25 mL/hr | | | IVPB 2 g 2 g, Intravenous, | | 15 8:28 | | | | | Administer over 120 Minutes, | | AM PST | | | | | ONCE, 08/14/15 at 0800, For 1 | | | | | | | dose, Maximum recommended | | | | | | | infusion rate = 1 gram/hour., | | | | | | + +---------+ +-----+ +---+ +---+---+ | | | +---+---+ + +-------+ +-------+---+---+ | PARoxetine (PAXIL) tablet 20 mg | Given | 08/14/20 | 20 mg | | | | 20 mg, Oral, EVERY MORNING, | | 15 8:30 | | | | | First dose on 08/10/15 at | | AM PST | | | | | 0900, Reproductive Risk: Use | | | | | | | appropriate handling | | | | | | | precautions., | | | | | | + +-------+ +-------+---+---+ +-------+ +-------+---+---+ | Given | 08/13/20 | 20 mg | | | | | 15 8:41 | | | | | | AM PST | | | | +-------+ +-------+---+---+ | Given | 08/12/20 | 20 mg | | | | | 15 8:51 | | | | | | AM PST | | | | +-------+ +-------+---+---+ +---+---+ | | | +---+---+ + +---------+ +--------+-------+---+ | potassium chloride 40 mEq in | New Bag | 08/11/20 | 40 mEq | 130 | | | sodium chloride 0.45% 500 mL IVPB | | 15 3:40 | | mL/hr | | | 40 mEq, Intravenous, Administer | | PM PST | | | | | over 4 Hours, ONCE, 08/11/15 | | | | | | | at 1530, For 1 dose | | | | | | + +---------+ +--------+-------+---+ +---+---+ | | | +---+---+ + +-------+ +--------+---+---+ | senna (SENOKOT) tablet 8.6 mg | Given | 08/14/20 | 8.6 mg | | | | 8.6 mg, Oral, 2 TIMES DAILY, | | 15 8:30 | | | | | First dose on Wed08/09/15 at | | AM PST | | | | | 2300, If docusate ineffective or | | | | | | | not ordered., | | | | | | + +-------+ +--------+---+---+ +-------+ +--------+---+---+ | Given | 08/13/20 | 8.6 mg | | | | | 15 9:35 | | | | | | PM PST | | | | +-------+ +--------+---+---+ | Given | 08/13/20 | 8.6 mg | | | | | 15 8:41 | | | | | | AM PST | | | | +-------+ +--------+---+---+ +---+---+ | | | +---+---+ + +---------+ +---+ +---+ | sodium chloride 0.9% with KCl | New Bag | 08/13/20 | | 75 mL/hr | | | 20 mEq/L (NS + KCL 20) infusion | | 15 11:33 | | | | | at 75 mL/hr, Intravenous, | | PM PST | | | | | CONTINUOUS, Starting 08/09/15 | | | | | | | at 2300 | | | | | | + +---------+ +---+ +---+ + + +---+ +---+ | Rate/Dose Verify | 08/13/20 | | 75 mL/hr | | | | 15 5:45 | | | | | | PM PST | | | | + + +---+ +---+ | Rate/Dose Verify | 08/13/20 | | 75 mL/hr | | | | 15 5:13 | | | | | | AM PST | | | | + + +---+ +---+ +---+---+ | | | +---+---+ documented in this encounter
--- OUTSIDE RECORDS SUMMARY | ~2020-04-05 | XMS | Encounter Summary ---
Demographics + + + | Address | [address] | | | [place] [address] | + + + | Home Phone | | + + + | Preferred Language | Unknown | + + + | Marital Status | | + + + | Congregation Affiliation | Unknown | + + + | Race | Unknown | + + + | Ethnic Group | Unknown | + + + Author + + + | Author | [facility] | | | and Olegarioana | + + + | Organization | [facility] | | [...] Jay Edouardcharlene | ECON | Unknown | | + + +---------+ + | Teressa Devika | ECON | Unknown | + | + + +---------+ + Care Team Providers + +------+ + | Care Cane Pusher Name | Role | Phone | + +------+ + | Poornima Ny | PCP | | + +------+ + Encounter Details +--------+ + + + + | Date | Type | Department | Care Team | Description | +--------+ + + + + | 10/10/ | Imaging | [facility] | Provider, | | | 2019 | Exam | [facility] | MD [address] | | | | | IMAGING [address] | [address]. | | | | | [address] [facility] | [place] [address] | | | | | [place] [address] | | | | | | [phone] | | | +--------+ + + + [...] + + documented as of this encounter Functional Status + + + [...] + +--------+ + + + | CT CERVICAL SPINE W | Routin | 06/18/2019 | | Results for this | | CONTRAST | e | 12:00 AM | | procedure are in the | | | | PDT | | results section. | + +--------+ + + + documented in this encounter Results CT Cervical Spine w Contrast (06/18/2019 12:00 AM PDT) + + | Specimen | + + | | + + + + + | Narrative | Performed At | + + + | External films for comparison only | [facility] | | | | | No results will be in the chart. | | + + + + +---------+ + + | Performing | Address | City/State/Zipcode | Phone Number | | Organization | | | | + +---------+ + + | [facility] | | | | + +---------+ + + documented in this encounter Visit Diagnoses Not on filedocumented in this encounter"
--- OUTSIDE RECORDS SUMMARY | ~2020-04-05 | XMS | Encounter Summary ---
Demographics + + + | Address | [address] | | | [place] [address] | + + + | Home Phone | | + + + | Preferred Language | Unknown | + + + | Marital Status | Single | + + + | Zoroastrianism Affiliation | Unknown | + + + | Race | White | + + + | Ethnic Group | Not or | + + + Author + + + | Author | [facility] | + + + | Organization | [facility] | + + + | [...] Team Providers + +------+ + | Care Pattern Keeper Name | Role | Phone | + +------+ + PCP | Unavailable | + +------+ + Encounter Details +--------+ + + + + | Date | Type | Department | Care Team | Description | +--------+ + + + + | 12/27/ | Abstract | [facility] | Azeem Dietrich | | | 2011 | | [facility] [place] [address] [address] | | | | | [address] [place] | [address] [facility] [place] | | | | | for Health and | [address] | | | | | [address] | [phone] | | | | | [place], [place] | | | | | | [address] | | | | | | [phone] | | | +--------+ + + + [...]
--- OUTSIDE RECORDS SUMMARY | ~2020-04-05 | XMS | Encounter Summary ---
Demographics + + + | Address | [address] | | | [place] [address] | + + + | Home Phone | | + + + | Preferred Language | Unknown | + + + | Marital Status | | + + + | Zoroastrianism Affiliation | Unknown | + + + | Race | Unknown | + + + | Ethnic Group | Unknown | + + + Author + + + | Author | [facility] | | | and [place] | + + + | Organization | [facility] | | | [...] Team Providers + +------+ + | Care Air Defense Control Officer Name | Role | Phone | + +------+ + PCP | Unavailable | + +------+ + Encounter Details +--------+ + + + + | Date | Type | Department | Care Team | Description | +--------+ + + + + | 09/11/ | Hospital | [facility] | Rosa Isela Vásquez, | End Stage Renal | | 2009 - | Encounter | [facility] | MD [address] | Disease (HCC) | | | | CARE FLOOR [address] | [facility] [address], | | | 09/[address]/ | | [address] | [place] [address] | | | 2008 | | [place], [place] | [phone] | | | | | [address] | | | | | | [phone] | Maria Luisa Barry, | | | | | | [address] | | | | | | [place] [address] | | | | | | [phone] | | | | | | | [...] Performed At | + + + | [facility] | | | [facility] [address] | | | , | | | [id number]/RADIOLOGY Patient Name: EVANS MCGUIRE Date of | | | : 1960 Medical Record: [id number] Account: | | | [id number] I/P/[facility] / Exam Date/Time: | | | 09/13/2009 [...] P A | | | 10:28 A /[facility]/[id number]/ cc: MD GIGI GARCIA | | | MD PEPITO | | + + + + + | Procedure Note | + + | Rosalio, Marlon Conversion - 05/14/2019 10:02 PM PDT | | [facility] | | [facility] [place] [address] | | , | | | | [id number]/RADIOLOGY | | | | Patient Name: EVANS MCGUIRE | | Date of : 1960 | | Medical Record: [id number] | | Account: [id number] | | I/P/[facility] / | | | | | | [...] | A | | A | | /[id number]/[id number]/ | | cc: JEFF AMANDA MD | | GIGI BEYER MD | + + XR Abdomen AP (09/12/2009 12:11 PM PST) + + | Specimen | + + | | + + + + + | Narrative | Performed At | + + + | [facility] | | | [facility] [place] [address] | | | , | | | [id number]/RADIOLOGY Patient Name: EVANS MCGUIRE Date of | | | : 1960 Medical Record: [id number] Account: | | | [id number] I/P/[facility] / Exam Date/Time: | | | [...] | | | 09/12/2009 01:48 P P BRIAN/carlota/[id number]/ cc: | | | MD GIGI ARTHUR MD | | + + + + + | Procedure Note | + + | Rosalio, Marlon Conversion - 05/14/2019 10:02 PM PDT | | [facility] | | [facility] [place] [address] | | , | | | | [id number]/RADIOLOGY | | | | Patient Name: EVANS MCGUIRE | | Date of : 1960 | | Medical Record: [id number] | | Account: [id number] | | I/P/[facility] / | | | | | | [...] | P | | P | | [facility]//[id number]/ | | cc: JOE CASILLAS MD | | GIGI BEYER MD | + + MRI Brain Wo MRA Head Wo (09/12/2009 11:17 AM PST) + + | Specimen | + + | | + + + + + | Narrative | Performed At | + + + | [facility] | | | [facility] [place] [address] | | | , | | | [id number]/RADIOLOGY Patient Name: EVANS MCGUIRE Date of | | | : 1960 Medical Record: [id number] Account: | | | [id number] I/P/[facility] / Exam Date/Time: | | | 09/12/2009 [...] DT: | | | 09/12/2009 11:55 A J/[id number]/ cc: JOE CASILLAS MD | | | MD GIGI TOSCANO MD | | + + + + + | Procedure Note | + + | Marlon Santamaria Conversion - 05/14/2019 10:02 PM PDT | | [facility] | | [facility] [place] [address] | | , | | | | [id number]/RADIOLOGY | | | | Patient Name: EVANS MCGUIRE | | Date of : 1960 | | Medical Record: [id number] | | Account: [id number] | | I/P/[facility] / | | | [...] | A | | A | | BRIAN/[id number]/[id number]/ | | cc: JOE CASILLAS MD | | MARIA LUISA BARRY MD | | GIGI BEYER MD | + + XR Chest 1 Vw (09/12/2009 5:40 AM PST) + + | Specimen | + + | | + + + + + | Narrative | Performed At | + + + | [facility] | | | [facility] [place] [address] | | | , | | | [id number]/Diagnostic Outsourced Patient Name: EVANS MCGUIRE | | | Date of : 1960 Medical Record: [id number] Account: | | | [id number] I/P/[facility] / Exam Date/Time: | | | 09/12/2009 [...] A A | | | 09:19 A MM/ccv/[id number]/ cc: MD LYNNE TOSCANO | | | MD GIGI VILLEGAS MD | | + + + + + | Procedure Note | + + | Rosalio, Rad Conversion - 05/14/2019 10:02 PM PDT | | [facility] | | [facility] [place] [address] | | , | | | | [id number]/Diagnostic Outsourced | | | | Patient Name: EVANS MCGUIRE | | Date of : 1960 | | Medical Record: [id number] | | Account: [id number] | | I/P/[facility] / | | | | | | [...] lung volumes with minimal haziness bilaterally. No fiedl | | alveolar consolidation or pleural effusion [...] | A | | A | | MM/ccv/[id number]/ | | cc: MARIA LUISA BARRY MD | | LYNNE VILLEGAS MD | | GIGI BEYER MD | + + CT Head wo Contrast (09/12/2009 2:49 AM PST) + + | Specimen | + + | | + + + + + | Narrative | Performed At | + + + | [facility] | | | [facility] [place] [address] | | | , | | | [id number]/Diagnostic Outsourced Patient Name: EVANS MCGUIRE | | | Date of : 1960 Medical Record: [id number] Account: | | | [id number] I/P/JAZMÍN / Exam Date/Time: | | | [...] A A | | | 08:58 A MM/onel/[id number]/ cc: MD LYNNE TOSCANO | | | MD GIGI VILLEGAS MD | | + + + + + | Procedure Note | + + | Marlon Santamaria - 05/14/2019 10:02 PM PDT | | [facility] | | [facility] [place] [address] | | , | | | | [id number]/Diagnostic Outsourced | | | | Patient Name: EVANS MCGUIRE | | Date of : 1960 | | Medical Record: [id number] | | Account: [id number] | | I/P/[facility] / | | | | | | [...] | A | | A | | MM/onel/[id number]/ | | cc: MARIA LUISA BARRY MD | | LYNNE VILLEGAS MD | | GIGI BEYER MD | + + XR Chest 1 Vw (09/11/2009 8:25 PM PST) + + | Specimen | + + | | + + + + + | Narrative | Performed At | + + + | [facility] | | | [facility] [place] [address] | | | , | | | [id number]/RADIOLOGY Patient Name: EVANS MCGUIRE Date of | | | : 1960 Medical Record: [id number] Account: | | | [id number] I/P/[facility] / Exam Date/Time: | | | 09/11/2009 [...] | | | 09/11/2009 11:01 P P [id number]//[id number]/ cc: | | | MD MARIA LUISA LITTLE MD HANI S | | | MD PEPITO | | + + + + + | Procedure Note | + + | Marlon Santamaria Conversion - 05/14/2019 10:02 PM PDT | | [facility] | | [facility] [place] [address] | | , | | | | [id number]/RADIOLOGY | | | | Patient Name: EVANS MCGUIRE | | Date of : 1960 | | Medical Record: [id number] | | Account: [id number] | | I/P/[facility] / | | | | | | [...] | P | | P | | [id number]/gf/[id number]/ | | cc: RONNY RAYA MD | | MARIA LUISA BARRY MD | | GIGI BEYER MD | + + documented in this encounter Visit Diagnoses + + | Diagnosis | + + | End stage renal disease (HCC) End stage renal disease | + + documented in this encounter"
--- OUTSIDE RECORDS SUMMARY | ~2020-04-05 | XMS | Encounter Summary ---
Demographics + + + | Address | [address] | | | [place] [address] | + + + | Home Phone | | + + + | Preferred Language | Unknown | + + + | Marital Status | Single | + + + | Shinto Affiliation | Unknown | + + + [...] Team Providers + +------+ + | Care Cashier Courtesy Booth Name | Role | Phone | + [...] | 2009 | on | Center at [facility] [address] | MD [address] | ([place] 05/30/2010 no | | | | [address] | [address] [place], [place] | [facility]) | | | | for Health and | [address] | | | | | [facility], [facility] | [phone] | | | | | [place], [place] | | | | | | [address] | | | | | | [phone] | | | +--------+ + + + [...]
--- OUTSIDE RECORDS SUMMARY | ~2020-04-05 | XMS | Encounter Summary ---
Demographics + + + | Address | [address] | | | [place] [address] | + + + | Home Phone | | + + + | Preferred Language | Unknown | + + + | Marital Status | Single | + + + | Episcopal Affiliation [...] Team Providers + +------+ + | Care Clerical Aide Teacher Name | Role | Phone | + +------+ + | Anny Ennis DO | PCP | Unavailable | + +------+ + Encounter Details +--------+------+ + + + | Date | Type | Department | Care Team | Description | +--------+------+ + + + | 03/13/ | Lab | Laboratory at [facility] | | Cirrhosis (HCC) | | 2009 | | [address] | | | | | | [place] for [facility] | | | | | | and Healing, | | | | | | [address] | | | | | | [place], [place] | | | | | | [address] | | | | | | [phone] | | | +--------+------+ + + + [...] effective 10/16/08 | [facility] | | [facility] | [facility] | | [place] [address] | LABORATORY | | [place] [address] | | + + + + + + + + | Performing | Address | City/State/Zipcode | Phone Number | | Organization | | | | + + + + + | [facility] | [address] | [place] [address] | | | LABORATORY | | | [...] | LABORATORY | | | | at [facility], | | | | | | [place], [place]. | | | | + + + + + + + + | Specimen | + + | Blood - Blood | + + + + + | Narrative | Performed At | + + + | [facility] ([facility] | [facility] | | [address] | [facility] | | [place] [address] | LABORATORY | + + + + + + + + | Performing | Address | City/State/Zipcode | Phone Number | | Organization | | | | + + + + + | [facility] | [address] | [place] [address] | | | LABORATORY | | | [...] | | | | | validated by [facility]. | | | | | | Test performed by: | | | | | | [facility] | | | | | | Services [address] [place] [address] | | | | | | [place] | | | | | | [address] | | | | + + + + + + + + | Specimen | + + | Urine - Urine | + + + + + + + | Performing | Address | City/State/Zipcode | Phone Number | | Organization | | | | + + + + + | [facility] | [address] | [place], [place] | | | UN[facility] | | [address] | | + + + + + [...] [facility] | [facility] | | [place] [address] | REGIONAL | | [place] [address] | LABORATORY | + + + + + + + + | Performing | Address | City/State/Zipcode | Phone Number | | Organization | | | | + + + + + | [facility] | [address] | [place] [address] | | | LABORATORY | | | [...] At | + + + | [facility] | [facility] | | [place] [address] | REGIONAL | | [place] [address] | LABORATORY | + + + + + + + + | Performing | Address | City/State/Zipcode | Phone Number | | Organization | | | | + + + + + | [facility] | [address] | [place] [address] | | | LABORATORY | | | [...] | [facility] | [facility] | | [place] [address] | REGIONAL | | [place] [address] | LABORATORY | + + + + + + + + | Performing | Address | City/State/Zipcode | Phone Number | | Organization | | | | + + + + + | [facility] | [address] | [place] [address] | | | LABORATORY | | | [...] by | | | | | | [employer], | | | | | | | | | | | | [address] | | | | | | [place] [address] | | | | | | [phone] | | | | | | | | | | | | [email or web address], | | | | | | [place] [...] [facility] | [address] | [place], [place] | | | UN[facility] | | [address] | | + + + + + [...] | [facility] | [facility] | | [place] [address] | DEPARTMENT OF | | [place] [address] | PATHOLOGY | + + + + + + + + | Performing | Address | City/State/Zipcode | Phone Number | | Organization | | | | + + + + + | [facility] | [address] | [place] [address] | | | PATHOLOGY | [address] [...] | + + + + + | [facility] | [address] | [place] [address] | | | PATHOLOGY | [address] | | | + + + + + INR (03/13/2010 9:50 AM PDT) + + + + + + | Component | Value | Ref Range | Performed | Pathologist | | | | | At | Signature | + + + + + + | INR | 1.19Comment: | 0.90 - 1.20 INR | [facility] | | | | INR Therapeutic [...] | + + + + + | [facility] DEPARTMENT OF | [address] | [place] [address] | | | PATHOLOGY | [address] [...] | | | DEPARTMENT | | | [facility] | | | OF | | | [...] | + + + + + | [facility] | [address] | [place] [address] | | | PATHOLOGY | [address] | | | + + + + + documented in this encounter Visit Diagnoses + + | Diagnosis | + + | 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
--- OUTSIDE RECORDS SUMMARY | ~2020-04-05 | XMS | Encounter Summary ---
Demographics + + + | Address | [address] | | | [place] [address] | + + + | Home Phone | | + + + | Preferred Language | Unknown | + + + | Marital Status | | + + + | Christianity Affiliation | Unknown | + + + | Race | Unknown | + + + | Ethnic Group | Unknown | + + + Author + + + | Author | [facility] | | | and [place] | + + + | Organization | [facility] | | [...] Team Providers + +------+ + | Care Com Writer Name | Role | Phone | + +------+ + | Poornima Ny | PCP | | + +------+ + Encounter Details +--------+ + + + + | Date | Type | Department | Care Team | Description | +--------+ + + + + | 12/26/ | Imaging | [facility] | Provider, | | | 2019 | Exam | [facility] | MD [address] | | | | | IMAGING [address] | | | | | [address] [facility] | [place] [address] | | | | | [place] [address] | | | | | | [phone] | | | +--------+ + + + [...] CT HEAD WO CONTRAST | Routin | 08/09/2015 | | Results for this | | | e | 12:00 AM | | procedure are in the | | | | PST | | results section. | + +--------+ + + + documented in this encounter Results CT Head wo Contrast (08/09/2015 12:00 AM PST) + + | Specimen | [...]
--- OUTSIDE RECORDS SUMMARY | ~2020-04-05 | XMS | Encounter Summary ---
Demographics + + + | Address | [address] | | | [place] [address] | + + + | Home Phone | | + + + | Preferred Language | Unknown | + + + | Marital Status | Single | + + + | Christian Affiliation | Unknown | + + + | Race | White | + + + | Ethnic Group | Not or | + + + Author + + + | Author | [facility] | + + + | Organization | [facility] | + + + | Address [...] Team Providers + +------+ + | Care Hot Dip Plater Name | Role | Phone | + +------+ + PCP | Unavailable | + +------+ + Encounter Details +--------+ + + + + | Date | Type | Department | Care Team | Description | +--------+ + + + + | 03/25/ | Abstract | Digestive Health | Azeem Dietrich | | | 2010 | | Center at [facility] [address] | [address], [address] | | | | | [address] [place] | [address] [facility] [place] | | | | | for Health and | [address] | | | | | Healing, [address] | [phone] | | | | | [place], [place] | | | | | | [address] | | | | | | [phone] | | | +--------+ + + + [...]
--- OUTSIDE RECORDS SUMMARY | ~2020-04-05 | XMS | Encounter Summary ---
Demographics + + + | Address | [address] | | | [place] [address] | + + + | Home Phone | | + + + | Preferred Language | Unknown | + + + | Marital Status | | + + + | Oriental Orthodox Affiliation | Unknown | + + + | Race | Unknown | + + + | Ethnic Group | Unknown | + + + Author + + + | Author | [facility] | | | and [place] | + + + | Organization | [facility] | | | and [...] Providers + +------+ + | Care Solar Installation Foreman Name | Role | Phone | + +------+ + PCP | Unavailable | + +------+ + Encounter Details +--------+ + + + + | Date | Type | Department | Care Team | Description | +--------+ + + + + | 07/18/ | Hospital | [facility] | Conversion | Intracranial injury | | 2015 | Encounter | [facility] [address] | Transaction, | of other and | | | | [address] | Provider Unknown | unspecified nature, | | | | [place], [place] | | without mention of | | | | [address] | | open intracranial | | | | [phone] | | wound, unspecified | | | [...]
--- OUTSIDE RECORDS SUMMARY | ~2020-04-05 | XMS | Encounter Summary ---
Demographics + + + | Address | [address] | | | [place] [address] | + + + | Home Phone | | + + + | Preferred Language | Unknown | + + + | Marital Status | | + + + | Druze Affiliation | Unknown | + + + | Race | Unknown | + + + | Ethnic Group | Unknown | + + + Author + + + | Author | [facility] | | | and Olegarioana | + + + | Organization | [facility] | | [...] Team Providers + +------+ + | Care Area Coordinator Name | Role | Phone | + +------+ + PCP | Unavailable | + +------+ + Encounter Details +--------+ + + + + | Date | Type | Department | Care Team | Description | +--------+ + + + + | 05/28/ | Hospital | [facility] | Livier Betancur, | Unspecified acquired | | 2015 - | Encounter | [facility] [address] | deformity of head | | | | [address] | [place] [address] | | | 06/03/ | | [place], [place] | [phone] | | | 2014 | | [address] | | | | | | [phone] | | | +--------+ + + + [...] documented as of this encounter Discharge Summaries Earl Livier Faye - 06/21/2015 11:19 AM PDT Discharge Summaries by Livier Betancur MD at 06/21/15 1119 Author: Livier Betancur MD Service: Neurosurgery Author Type: Physician Filed: 06/21/15 1128 Date of Service: 06/21/151118 Status: Signed Store Stock Help: Livier Betancur MD (Physician) [facility] Service: Neurosurgery Discharge Summary Date of Admission: 05/28/2015 Date of Discharge: 06/03/2015 Discharge Physician: LIVIER BETANCUR MD Treatment Team: Treatment Team: Consulting Physician: Ken Foster MD Admitting Provider: Livier Betancur MD Discharge Diagnoses: Active Problems: Hyposmolality and/or hyponatremia Seizures (HCC) Acute respiratory failure (HCC) Anemia Thrombocytopenia (HCC) Pneumocephalus Midline shift of brain Epidural hemorrhage (HCC) Resolved Problems: Subdural fluid collection Final Diagnoses: Status post right cranioplasty Procedures: Procedure(s): CRANIOPLASTY Significant Diagnostic Studies: BRIEF HISTORY OF PRESENTATION: Tony Fortune is a 54 y.o. male who originally underwent a large right frontotempor al parietal decompressive craniectomy by neurosurgeon Dr. Konstantin Chong on 10/11/2014. The p atient did make a reasonable recovery, although continued to reside at the [facility] in [place], [place]. 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 Dr. Chong was not available for the surgery, secondary to a mi litary commitment, and I did see the patient in follow-up. The patient was then admitted to the [facility] on 05/28/2015 for an elective right-sided cranioplasty. The patient did have significant depression of the right scalp. HOSPITAL COURSE: The patient's surgery was uneventful. He was monitored in intensive care unit, where he r emained lethargic, although not greatly changed from his pre-operative status. A head CT th e next morning did demonstrate a large right epidural hematoma at the surgical site. The virgen watson was monitored through the morning, but did become more lethargic. He was then returne d to the operating room on 05/29/2015 for an emergent evacuation of the epidural hematoma. He was again monitored in the intensive care unit. The patient was much more awake and alert following that surgery. A repeat head CT demonstrated an adequate appearance of the surgica l field. The patient was transferred to the surgical harper. An epidural drain was removed on 06/02/20, and the patient was transferred back to his group home, [facility] in [facility] on 06/03/2015 Past Medical History Diagnosis Date Alcohol abuse Frequent falls Drug abuse Seizures (HCC) Other chronic pain Depression Skin abscess Anemia Hemiparesis (HCC) Past Surgical History Procedure Laterality Date Craniotomy Right 10/11/2014 Procedure: CRANIOTOMY - FOR BLEED; Surgeon: Anthony Chong MD; Location: [facility] OR; Service: Neurosurgery; Laterality: Right; Craniectomy Right 10/11/2014 Procedure: CRANIECTOMY; Surgeon: Anthony Chong MD; Location: [facility] OR; Ser vice: Neurosurgery; Laterality: Right; Cranial flap replacement Right 05/28/2015 Procedure: CRANIAL - FLAP REPLACEMENT; Surgeon: Livier Betancur MD; Location: [facility] OR; Service: Neurosurgery; Laterality: Right; Cranioplasty for cranial defect Right 05/29/2015 Procedure: CRANIOPLASTY; Surgeon: Livier Betancur MD; Location: [facility]; Service: Neurosurgery; Laterality: Right; Allergies Allergen Reactions Penicillins Other (See Comments) Unknown No prescriptions prior to admission DISCHARGE EXAM Vital Signs: BP 100/73 mmHg | Pulse 89 | Temp(Src) 98.1 F (36.7 C) (Axillary) | Resp 16 | Ht 1.778 m (5' 10") | Wt 81.7 kg (180 lb 1.9 oz) | BMI 25.84 kg/m2 | SpO2 100% Physical Exam Neurologic Exam The patient was awake and alert. He did answer most questions with mild confusion. The right scalp incision was clean, dry, and intact. Incision is closed with diamond. PLAN The patient was discharged to his group home, [facility], in [facility]. The patient was asked to return to the clinic in 2 weeks for removal of the right-sided sca lp diamond. Disposition: intermediate frame tender care facility Condition: Stable Code Status: Prior No discharge procedures on file. Follow up: Livier Betancur MD [address] [place] [address] In 2 weeks Staple removal [facility] [address] [place] [address] Medication List CHANGE how you take these medications thiamine 100 MG tablet Refills: 0 Commonly known as: VITAMIN B-1 What changed: Another medication with the same name was removed. Continue taking this medi cation, and follow the directions you see here. CONTINUE taking these medications acetaminophen 650 MG CR tablet Refills: 0 Commonly known as: TYLENOL bisacodyl 10 MG suppository Refills: 0 Commonly known as: DULCOLAX docusate sodium 100 MG capsule Refills: 0 Commonly known as: COLACE HYDROcodone-acetaminophen 5-325 MG per tablet QTY: 60 tablet Refills: 0 Commonly known as: NORCO Take 1 tablet by mouth every 6 (six) hours as needed for Pain. levetiracetam 250 MG tablet QTY: 150 tablet Refills: 0 Commonly known as: KEPPRA Take 5 tablets by mouth 2 (two) times daily. 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 You may get the following medications from any pharmacy - HYDROcodone-acetaminophen 5-325 MG per tablet Discharge took 20 minutes, to include final examination, discussion of admission, and prepa ration of prescriptions, instructions for on-going care, follow-up and documentation of disc harge summary. LIVIER BETANCUR MD @td documented in this en counter Progress Notes Conversion Transaction, Provider Unknown - 06/03/2015 2:07 PM PDTFormatting of this note m ight be different from the original. Case Management by Josseline Mera RN at 06/03/15 140 Author: Josseline Mera RN Service: (none) Author Type: Porcelain Finish Sprayer Filed: 06/03/15 1408 Date of Service: 06/03/151406 Status: Signed Store Stock Help: Josseline Mera RN (Porcelain Finish Sprayer) Disposition: [facility] in [place] Transportation: D Map through [employer]. All orders, signed AVS, and prescriptions have been faxed All DC paperwork completed Patient and family in agreement with discharge plan Josseline Mera onver alem Transaction, Provider Unknown - 06/03/2015 12:21 PM PDT Nurse Progress Note by Shannon Nguyen RN at 06/03/15 1221 Author: Shannon Nguyen RN Service: (none) Author Type: Registered Nurse Filed: 06/03/15 1223 Date of Service: 06/03/15 1221 Status: Signed Store Stock Help: Shannon Nguyen RN (Registered Nurse) Pt discharged back to [facility] in [place]. Paperwork previously faxed. IV removed, landy bernardo with transport, talha in place. Left message for mother, notifying her of D/C. No c oncerns. SHANNON Nguyen RN onver alem Transaction, Provider Unknown - 06/03/2015 11:14 AM PDT Therapy Progress Note by Yazan Main PTA at 06/03/15 1114 Author: Yazan Main PTA Service: (none) Author Type: Executive Coordinator Filed: 06/03/15 1122 Date of Service: 06/03/151113 Status: Signed Store Stock Help: Yazan Main PTA (Executive Coordinator) 06/03/15 1114 PT Last Visit PT Received On 06/03/15 Reason for Treatment Other (comment) (cranioplasty) Requires PT Follow Up Yes Assistance Required 1 person Other Comments Comments pt supine in bed willing to participate completed transfer and gait training and returned to supine Cognition Overall Cognitive Status Impaired Orientation Level Oriented Bed Mobility Supine to Sit Min assist (1 LE OOB) Sit to Supine Min assist (1 LE into bed) Scooting Minimal assist Transfers Sit to/from Stand Moderate assist (to arise OR lower) Mobility Ambulation Assistance Moderate assist Maximal Ambulation Distance (feet) 75 Total Ambulation Distance (feet) 75 Distance limited by? Patient's ability Pattern Alternating;Decreased robina;Scissoring;Ataxic;Narrow base Assistive Device Other (Comment) (INTERIOR DESIGN PRINCIPAL) Activity Tolerance Activity Tolerance Patient limited by fatigue Plan Treatment/Interventions Continue per Primary PT POC Progress Progressing toward goals Recommendation Recommendations SNF PT recommendations were discussed and verified with supervising PT. Juhi Abel MA, CCC-BLASTING HELPER - 06/03/2015 9:07 AM PDTFormatting of this note might be different fr om the original. Therapy Progress Note by Juhi Gregory MA CCC-BLASTING HELPER at 06/03/15 09 Author: Juhi Gregory MA CCC-BLASTING HELPER Service: (none) Author Type: Speech and Certified Meeting Professional ologist Filed: 06/03/15 09 Date of Service: 06/03/15906 Status: Signed Store Stock Help: Juhi Gregory MA CCC-BLASTING HELPER (Speech and Language Pathologist) 06/03/15 0850 Swallowing Assessment Eval Swallowing Treatment Yes Thin Presentation Cup Oral Phase Thin WFL Pharyngeal Phase Cough - delayed Sherburn Presentation Cup Oral WFL Pharyngeal Phase Delayed swallow initiated Puree Presentation Spoon Oral Phase WFL Pharyngeal Delayed Swallow Recommendations Liquids Consistency Recommendations Sherburn thick Diet Consistency Recommendation Pureed Recommendations Dysphagia treatment;Feeding assist;Set up with meals;Check on patients freq uently throught out meals Risk for Aspiration Moderate Compensatory Swallowing Strategies Upright as possible for all oral intake;Remain upright f or 30 minutes after meals;Slow rate presentation;Small bites/sips;Eat/feed slowly Recommended Form of Meds Meds floated in puree Summary pt eating breakfast with RN in room when BLASTING HELPER entered. pt with delayed swallow but no coughing per RN. Pt took several bites then had a coughing spell prior to swallow with p uree. No other coughing episodes during session. RN reports night RN said occasional cough ing and cues needed to cough up phlegm. pt had no other coughing before or after trials and RN stated lung sounds were good. Pt stated no complaints of sticking or going the wrong wa y with meal. Staff Notified RN Plan of Care Treatment Plan Continue with current plan Electronically signed by Juhi Gregory MA, [facility]-BLASTING HELPER at 06/03/2015 9:07 AM PDTConversion T ransaction, Provider Unknown - 06/03/2015 9:07 AM PDTFormatting of this note might be diffe rent from the original. Case Management by oJsseline Mera RN at 06/03/15906 Author: Josseline Mera RN Service: (none) Author Type: Porcelain Finish Sprayer Filed: 06/03/1508 Date of Service: 06/03/15906 Status: Signed Store Stock Help: Josseline Mera RN (Porcelain Finish Sprayer) [facility] will accept Jimenez back when appropriate. Paperwork on front of chart f or MD signature. Ken iRvera MD - 06/02/2015 10:55 AM PDT Progress Notes by Ken Foster MD at 06/02/15 1051 Author: Ken Foster MD Service: Neurosurgery Author Type: Physician Filed: 06/02/15 1054 Date of Service: 06/02/151054 Status: Signed Store Stock Help: Ken Foster MD (Physician) Subjective: POD#4 No new issues. He is doing well. Complains of minimal pain. YOSEF drain 20cc last shift so I removed it. EXAM: Filed Vitals: 06/02/15 0746 BP: 125/77 Pulse: 60 Temp: 97.7 F (36.5 C) Resp: 16 SpO2: The right sided scalp incision is clean, dry, and intact. YOSEF drain removed. Follows commands. A/P: S/P right sided cranioplasty. Continue with therapies while here. Stable for return to his facility from my perspective when this can be arranged. onversion Transact ion, Provider Unknown - 06/01/2015 4:26 PM PDTFormatting of this note might be different fr om the original. Therapy Progress Note by Mere Hardy MA CCC-BLASTING HELPER at 06/01/151625 Author: Mere Hardy MA CCC-BLASTING HELPER Service: (none) Author Type: Speech and Language Patholo gist Filed: 06/01/151625 Date of Service: 06/01/151625 Status: Signed Store Stock Help: Mere Hardy MA CCC-BLASTING HELPER (Speech and Language Pathologist) 06/01/15 1608 Swallowing Assessment Eval Swallowing Treatment Yes Initial Swallow Assessment Respiratory Status Room air Behavior/Cognition Cooperative;Alert;Confused;Impulsive;Distractible Dentition Adequate;Some missing teeth Vision Functional for self-feeding Patient Positioning Upright in bed Baseline Vocal Quality Weak Consistencies Consistencies Assessed Yes Thin Presentation Cup;Self Fed Oral Phase Thin WFL Pharyngeal Phase Delayed swallow initiated;Decreased laryngeal elevation upon palpation;Cou gh - delayed;Spontaneous multiple swallow Sherburn Presentation Cup;Self Fed Oral WFL Pharyngeal Phase No overt signs or symptoms of aspiration;Delayed swallow initiated;Decreas ed laryngeal elevation upon palpation Puree Presentation Self Fed;Spoon Oral Phase WFL Pharyngeal No overt signs or symptoms of aspiration;Delayed Swallow Dysphagia Mechanically Altered Presentation Spoon;Self Fed Oral Phase Prolonged mastication Pharyngeal Phase Cough - Immediate;Delayed Swallow;Decreased Laryngeal Elevation Recommendations Liquids Consistency Recommendations Sherburn thick Diet Consistency Recommendation Pureed Recommendations Dysphagia treatment;Speech/ Language Eval & Treat;Check on patients frequen tly throught out meals;Set up with meals Risk for Aspiration Moderate Compensatory Swallowing Strategies Upright as possible for all oral intake;Remain upright f or 30 minutes after meals;Swallow 2 times per bite/sip;Slow rate presentation;Effortful swal low;Eat/feed slowly;Small bites/sips;No straws Recommended Form of Meds Meds crushed in puree;With puree Summary Pt cooperative with swallow therapy. Pt appeared confused perseverating on talking about his pick-up truck and that a boy took his truck. Pt tolerated current puree diet textu res and nectar thick liquids without any overt s/sx of aspiration. However, given thin liqui ds and DMA pt demo'd coughing. At this time continue on current diet. ST to follow for swall ow safety and diet tolerance monitoring and assess/treat cog. Staff Notified MD;RN Plan of Care Treatment Plan ST to follow;Cognitive evaluation/treatment;Daily 4 to 6 times a week;Contin ue with current plan Follow up treatments Swallow strategies;Diet tolerance monitoring;Patient/Family education; Assessment for upgrade Dysphagia Goals Rubber Stamp Assembler Goals Safe/efficient oral intake Pt will have safe/efficient oral intake Sherburn thick liquids;Dysphagia advanced diet;With max cues Short Term Goals Tolerate liquid consistency;Follow swallow precautions Pt will tolerate tolerate liquid consistency Sherburn thick liquids;With max supervision;Goa l progressing Pt will follow swallow precautions With mod supervision;Goal progressing onver alem Transaction, Provider Unknown - 06/01/2015 12:40 PM PDT Progress Notes by Fede Bonner at 06/01/15 1240 Author: Fede Bonner Service: (none) Author Type: Filed: 06/01/15 4642 Date of Service: 06/01/151239 Status: Signed Store Stock Help: Fede Jimenez (Chaplain) is from [place], but says he lives on the [facility]. Stated he has bee n in the hospital for a month and gets lonely. 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 Lead RN is thinking about moving him to a room near more activity. Chaplain Fede Bonner BCC Ken Rivera MD - 06/01/2015 9:08 AM PDT Progress Notes by Ken Foster MD at 06/01/15 0908 Author: Ken Foster MD Service: Neurosurgery Author Type: Physician Filed: 06/01/15909 Date of Service: 06/01/15907 Status: Signed Store Stock Help: Ken Foster MD (Physician) Subjective: POD#3 Transferred to floor. He is doing well. Complains of minimal pain. Ate breakfast with as sistance. YOSEF drain 45cc last shift then 25 cc. EXAM: Filed Vitals: 06/01/15 0758 BP: 115/76 Pulse: 60 Temp: 98.7 F (37.1 C) Resp: SpO2: 99% The right sided scalp incision is clean, dry, and intact. YOSEF drain in place. Follows commands. A/P: S/P right sided cranioplasty. Will likely remove drain later today or tomorrow. Continue with physical therapy. Once the remaining epidural drain is removed, the [facility]. onversion Transact ion, Provider Unknown - 05/31/2015 12:04 PM PDTFormatting of this note might be different fr om the original. Progress Notes by Hany Templeton RD at 05/31/15 1204 Author: Hany Templeton RD Service: (none) Author Type: Registered Dietitian Filed: 05/31/151203 Date of Service: 05/31/151203 Status: Signed Store Stock Help: Hany Templeton RD (Registered Dietitian) 05/31/15 1141 Subjective Timepoint Admit (Triggers for dysphagia. ) Pt c/o Pt admitted for seizures, has hx of craniectiomy, is POD # 2R [id number] cranioplasty, POD # 1 R bone flap elevation for EDH evacuation, at time of visit pt sleeping on room air, in chair, has been a little confused per RN. Reported by RN Fluid / Beverage Intake Oral Fluids Amount NT liquids Food Intake Amount of Food Pt ate 100% of his cream of wheat this AM per RN Type of Food / Meals Dysphagia pureed, NT liquids. Meal / Snack Pattern House diet. Parenteral Nutrition Intake Rate/Solution NS running at 110 ml/hr. Biochemical data, medical tests, and procedures reviewed Biochemical data, medical tests, and procedures reviewed BUN 4, Cr 0.48 are low. Lytes are wnl. Estimated Energy Needs Total Energy Estimated Needs 2125 - 2550 kcal Method for Estimating Needs 25 - 30 kcal/kg/admit wt Estimated Protein Needs Total Protein Estimated Needs 102 - 128 g protein Method for Estimating Needs 1.2 - 1.5 g protein/kg/admit wt Recommendations Recommended energy needs Continue dysphagia pureed, NT liquid, house diet per BLASTING HELPER recommend ations. Add magic cups to meal trays to provide additonal kcals/protein to help promote heal ing. Encourage small frequent, high protein, nutrient dense snacks/meals. Nutritional Risk Nutritional risk Moderate Follow up date 06/05/[address] onver alem Transaction, Provider Unknown - 05/31/2015 11:16 AM PDT Therapy Progress Note by Ki Martinez PT at 05/31/15 1116 Author: Ki Martinez PT Service: Physical Medicine and Rehab Author Type: Physical Therapist Filed: 05/31/151928 Date of Service: 05/31/15 1116 Status: Signed Store Stock Help: Ki Martinez PT (Physical Therapist) 05/31/15 1116 PT Last Visit PT Received On 05/31/15 Reason for Treatment Other (comment) (s/p cranioplasty and SD drain placement) Requires PT Follow Up Yes Follow up PT Only? No Assistance Required 1 person;2 person Precautions Other Precautions (fall risk) Other Comments Comments Pt. seems more calm today...less agitated. He participated w/ some chair exercise s for warm up. Pt. is able to scoot in chair w/ CGA and able to arise w/ modAx1. Pt. is ab le better attain upright stance today however still seems retropulsive and times requiring m Heidi to prevent posterior fall. Pt. was able to initiate stepping activity (approx. 4 pre ga it steps to and from chair) Pt. exhibits decreased stance phase time on the LLE during dynam ic RLE swing requiring slightly increased assistance. He reports that he was using a 4WW ho wever I do not see how this was safe due to chronic impairment of the LUE. Pt. declined to do any further activity and began sitting in chair even though it was not quite safe. MaxA was required to safely quide pt. back onto chair and to reposition for comfort. Pt. reporte d "a little" pain around incisions. VS remained stable throughout. Call light left in reac h. Cognition Overall Cognitive Status Impaired Orientation Level Oriented Comments more pleasant and calm Transfers Sit to/from Stand Moderate assist (to arise OR lower);x 1 person;x 2 person;AIRAM Bed to/from Chair Moderate assist (to arise OR lower);Maximal assist (to arise AND lower);x 1 person Mobility Ambulation Assistance Moderate assist;X1;X2;Safety concerns Maximal Ambulation Distance (feet) 1 (pre-gait steps) Total Ambulation Distance (feet) 4 Distance limited by? Patient's ability Pattern Decreased robina;Right swing foot doesn't pass stance foot;Left swing foot doesn't pass stance foot;Right dec toe clearance;Left dec toe clearance Assistive Device None Static Sitting Balance Static Sitting-Balance Support Feet supported Static Sitting-Level of Assistance Attains midline;Maintains midline;Standby assist;Minimal assist Static Standing Balance Static Standing-Balance Support Trunk support;Right upper extremity support;Left upper extr emity support Static Standing-Level of Assistance Moderate assist Static Standing-Comment/Duration Retropulsive at times...posterior lean Activity Tolerance Activity Tolerance Patient tolerated treatment without report of fatigue Nurse Made Aware yes Safety Devices Safety Devices in Place (call light in reach) Plan Treatment/Interventions Continue per Primary PT POC Progress Progressing toward goals;Slow progress, decreased activity tolerance Recommendation Recommendations SNF Livier Briseno - 05/31/2015 9:18 AM PDTFormatting of this note might be different from the or iginal. Progress Notes by Livier Betancur MD at 05/31/15917 Author: Livier Betancur MD Service: Neurosurgery Author Type: Physician Filed: 05/31/15 8862 Date of Service: 05/31/15917 Status: Signed Store Stock Help: Livier Betancur MD (Physician) POD#2 The patient is awake and alert. He does complain of pain near the right temporalis region. He also complains of a one-month history of pain present in the left arm and hip, stating it began 6 weeks ago when he fell at his care facility. He did tolerate breakfast this morning without nausea or vomiting. Tmax 98.7 over last 24 hours. YOSEF drains 135 cc out total x 24 hours. Current Labs: CBC: Lab Results Component Value Date WBC 6.21 05/31/2015 RBC 3.20* 05/31/2015 HGB 8.9* 05/31/2015 HGB 11.9* 05/29/2015 HCT 27.2* 05/31/2015 HCT 35* 05/29/2015 MCV 85.1 05/31/2015 MCH 27.7 05/31/2015 MCHC 32.6 05/31/2015 RDW 49.0 05/31/2015 PLT 103* 05/31/2015 MPV 9.1 05/31/2015 DIFFTYPE AUTOMATED 05/31/2015 BMP: Lab Results Component Value Date NA 136 05/31/2015 K 3.8 05/31/2015 CL 106 05/31/2015 CO2 27 05/31/2015 ANIONGAP 7 05/31/2015 GLUF 99 05/31/2015 BUN 4* 05/31/2015 CREATININE 0.48* 05/31/2015 BCR 8 05/31/2015 CA 8.3* 05/31/2015 EGFR >60 05/31/2015 EXAM: The right sided scalp incision is clean, dry, and intact. YOSEF drains are in place. A/P: I did remove one YOSEF drain this morning. Plan probable transfer to the [facility]. Continue with physical therapy. Once the remaining epidural drain is removed, the patient could be [facility]. onversion Transactio n, Provider Unknown - 05/31/2015 8:55 AM PDT Case Management by TABITHA Sidhu at 05/31/15 0856 Author: TABITHA Sidhu Service: (none) Author Type: Creel Selector Filed: 05/31/15 1438 Date of Service: 05/31/15854 Status: Addendum Store Stock Help: TABITHA Sidhu (Creel Selector) Related Notes: Original Note by TABITHA Sidhu (Creel Selector) filed at 05/31/15 0856 Placed t/c to [facility] at [facility]. Left message requesting a return call as i have no t heard from her since I faxed the referral. Await her return call. Addendum: 1400: Received return call from Debora at [facility]. Pt is accepted for a dmit when he is medically stable. abitha Shaver, PT - 05/30/2015 3:49 PM PDTFormatting of this note might be different from th joyce original. Therapy Progress Note by Keiry Weiss PT at 05/30/15 3851 Author: Keiry Weiss PT Service: (none) Author Type: Physical Therapist Filed: 05/30/15 1801 Date of Service: 05/30/15 952 Status: Signed Store Stock Help: Keiry Weiss PT (Physical Therapist) 05/30/15 1543 PT Last Visit PT Received On 05/30/15 Reason for Treatment Other (comment) Requires PT Follow Up Yes Follow up PT Only? Yes (further mobility assessment) Focus for Next Treatment Transfer Technique (mobility) PT Eval/Reassessment Date 05/30/15 Assistance Required 2 person Home Environment Type of Home Home manufactured double wide Home Exterior Layout 1-3 steps ( 2 ROBB) Bathroom Shower/Tub Shower unit with threshold Home Equipment Walker 4 wheeled Additional Comments Pt had been most recently staying at [facility] in [place]. Pt was getti ng agitated with questions and not wanting to respond. Prior Function Level of [place] Assist with functional mobility;Assist with ADLs;Assist with IADLs (while at [facility], unclear functional mobility prior) Lives With Alone Receives Help From Family (silblings) Comments difficult to ascertain- pt reported spending most of his time in w/c at [facility] an d needing help with all transfers. He also reported being able to walk with 4WW around "the loop" without difficulty. RUE Assessment RUE Assessment WFL LUE Assessment LUE Assessment X (hemiparesis) RLE Assessment RLE Assessment X (grossly 3+/5 (difficult as pt not eager to participate)) LLE Assessment LLE Assessment X (grossly 3+/5 (difficult as pt not eager to participate)) Cognition Overall Cognitive Status Impaired Orientation Level (oriented to self and situation, not place or time) Comments pt not consistent in answering questions and was agitated during session Sensation Light Touch (Pt reported no numbness or tingling) Assessment of Patient Status Assessment of Patient Status Decreased UE ROM;Decreased LE strength;Decreased UE strength;N on-functional LUE;Decreased functional mobility;Decreased ADL status;Decreased endurance;Pr ecautions;Pain Prognosis Should progress with skilled therapy intervention Safety Devices Safety Devices in Place (call light w/in reach) Plan Treatment/Interventions Balance training;Bed mobility training;Gait training;Stair training ;Therapeutic exercise;Transfer training;W/C training PT Frequency Once per day;5-7x/wk Care Duration (# of days) 7 # of days Recommendation Recommendations SNF Barriers to Discharge Physical Deficits Impacting Functional [place];Self-care Deficit s Impacting Functional [place] 05/30/15 1549 PT Last Visit PT Received On 05/30/15 Reason for Treatment Other (comment) Requires PT Follow Up Yes Follow up PT Only? Yes (further mobility assessment) Focus for Next Treatment Transfer Technique (mobility) PT Eval/Reassessment Date 05/30/15 Assistance Required 2 person Other Comments Comments pt likes to be called [place]. Pt was sitting in chair upon PT arrival, saying th at he wanted his food. Pt was agitated and only answered a few questions. Pt appeared confus ed and gave conflicting answers to prior mobility level and help at home. Pt also needed to be oriented to place and time. Pt perseverating on wanting to order food. Pt required much e ncouragement to stand but was not agreeable to trial steps or transfer to bed. Pt became kay tated and was returned to sitting in chair. Vitals remained WNL throughout activity. Pt educ ated on role of PT and importance of mobility. Finished session with pt seated in chair and call light w/in reach. Cognition Overall Cognitive Status Impaired Orientation Level (oriented to self and situation, not place or time) Comments pt not consistent in answering questions and was agitated during session Transfers Sit to/from Stand Moderate assist (to arise OR lower);x 2 person Activity Tolerance Activity Tolerance Treatment limited secondary to agitation Nurse Made Aware RN aware Safety Devices Safety Devices in Place (call light w/in reach) Plan Treatment/Interventions Balance training;Bed mobility training;Gait training;Stair training ;Therapeutic exercise;Transfer training;W/C training PT Frequency Once per day;5-7x/wk Care Duration (# of days) 7 # of days Recommendation Recommendations SNF Barriers to Discharge Physical Deficits Impacting Functional [place];Self-care Deficit s Impacting Functional [place] onversion Transa ction, Provider Unknown - 05/30/2015 3:10 PM PDT Therapy Progress Note by Carmela Wilcox MS CCC-BLASTING HELPER at 05/30/15 1510 Author: Carmela Wilcox MS CCC-BLASTING HELPER Service: (none) Author Type: Speech and Certified Meeting Professional ologist Filed: 05/30/15 2772 Date of Service: 05/30/15 151 Status: Signed Store Stock Help: Carmela Wilcox MS CCC-BLASTING HELPER (Speech and Language Pathologist) 05/30/15 1500 Swallowing Assessment Eval Swallowing Evaluation Yes Initial Swallow Assessment Respiratory Status Room air History of Intubation Yes Length of Intubations (days) 1 days Date extubated 05/29/15 Behavior/Cognition Alert;Cooperative;Neuro impairment;Agitated Dentition Adequate;Some missing teeth Vision Functional for self-feeding Patient Positioning Upright in chair Baseline Vocal Quality Weak Volitional Cough Strong Volitional Swallow Delayed Oral Motor Exam Labial ROM Reduced left Labial Symmetry Abnormal symmetry left Labial Strength Reduced Lingual ROM Reduced right;Reduced left Lingual Strength Reduced Facial Symmetry Left droop Vocal Quality Weak Consistencies Consistencies Assessed Yes Ice Chips Presentation Spoon Oral Phase Increased holding time Pharyngeal Phase No overt signs or symptoms of aspirations Thin Presentation Cup;Spoon Oral Phase Thin Increased hold time Pharyngeal Phase Delayed swallow initiated;Cough - delayed Sherburn Presentation Cup;Self Fed Oral Increased Anterior to Posterior Transit Pharyngeal Phase Delayed swallow initiated;No overt signs or symptoms of aspiration;Spontan eous double swallow (4oz) Puree Presentation Spoon;Self Fed Oral Phase WFL Pharyngeal No overt signs or symptoms of aspiration Dysphagia Mechanically Altered Presentation Spoon Oral Phase Prolonged mastication;Increased holding time;Pocketing Left;Other (comment) (min pocketing, extra time-taking many bites before swallowin) Pharyngeal Phase Cough - Immediate (x1 with fruit cocktail/about 2.5oz trialed) Regular Presentation Self Fed Oral Phase Impaired Mastication;Pocketing Left;Increased Anterior to Posterior Transit;Prol onged mastication Pharyngeal Phase Cough - Delayed Recommendations Liquids Consistency Recommendations Sherburn thick;Ice chips for oral comfort Diet Consistency Recommendation Pureed Recommendations Dysphagia treatment;Set up with meals;Check on patients frequently throught out meals Risk for Aspiration Moderate Compensatory Swallowing Strategies Upright as possible for all oral intake;Remain upright f or 30 minutes after meals;Swallow 2 times per bite/sip;Slow rate presentation;No straws;Smal l bites/sips;Eat/feed slowly Recommended Form of Meds Meds crushed in puree;With puree Summary Pt initially cooperative for eval, then became increasingly agitated as eval progre ssed. He demo'ed overt s/sx aspiration post swallow with thin liquids and soft solids. He dias d significant pocketing on the left with a trial of a sandwich, and became very agitated and was cursing at therapist to leave when cued to clear the pocketed sandwich.Rec a pureed t with nectar thick liquids, close supervision for aspiration precautions as pt was observed to be quite impulsive. Staff Notified MD;RN Plan of Care Treatment Plan ST to follow;Dysphagia treatment;Cognitive evaluation/treatment;Daily 4 to 6 times a week Follow up treatments Diet tolerance monitoring;Patient/Family education;Assessment for upgr khadijah;Swallow strategies Dysphagia Goals Rubber Stamp Assembler Goals Safe/efficient oral intake Pt will have safe/efficient oral intake Sherburn thick liquids;Dysphagia advanced diet;With max cues Short Term Goals Tolerate liquid consistency;Follow swallow precautions Pt will tolerate tolerate liquid consistency Sherburn thick liquids;With max supervision Pt will follow swallow precautions With mod supervision;New/revised goal RDSteeLivier badillo - 05/30/2015 8:48 AM PDTFormatting of this note might be different from the or iginal. Progress Notes by Livier Betancur MD at 05/30/15847 Author: Livier Betancur MD Service: Neurosurgery Author Type: Physician Filed: 05/30/15 1230 Date of Service: 05/30/15847 Status: Signed Store Stock Help: Livier Betancur MD (Physician) POD#1 The patient was extubated last night. He does request something to drink. Two epidural YOSEF drains: Total of 335 mL out since placement. Current Labs: CBC: Lab Results Component Value Date WBC 7.34 05/30/2015 RBC 3.24* 05/30/2015 HGB 8.8* 05/30/2015 HGB 11.9* 05/29/2015 HCT 27.5* 05/30/2015 HCT 35* 05/29/2015 MCV 85.1 05/30/2015 MCH 27.3 05/30/2015 MCHC 32.1 05/30/2015 RDW 47.3 05/30/2015 PLT 117* 05/30/2015 MPV 9.7 05/30/2015 DIFFTYPE AUTOMATED 05/30/2015 BMP: Lab Results Component Value Date NA 135 05/30/2015 K 3.7 05/30/2015 CL 106 05/30/2015 CO2 27 05/30/2015 ANIONGAP 6 05/30/2015 GLUF 106* 05/30/2015 BUN 5* 05/30/2015 CREATININE 0.50* 05/30/2015 BCR 10 05/30/2015 CA 8.1* 05/30/2015 EGFR >60 05/30/2015 EXAM: The patient is awake and alert. Both eyes are open. Speech is intact. The patient does make short complete sentences. He does move his right side well. Unchanged left upper extremity weakness/coordination dif ficulties. The right scalp incision is clean, dry, and intact. 2 YOSEF drains are present. IMAGING REVIEW: AM 05/30/[address]: Improved appearance of right EDH. Improved R to L MLS. ASSESSMENT: Status post right sided epidural hematoma evacuation after cranioplasty PLAN: Continue Intensive Care Unit observation today, with epidural drains in place. Plan for him to be increasingly out of bed. I will ask physical therapy to see the patient . Odalys Trinidad ARNP - 05/30/2015 6:40 AM PDT Progress Notes by JENNIFER Mendoza at 05/30/15639 Author: JENNIFER Mendoza Service: Financial Analyst Author Type: Nurse Practitioner Filed: 05/30/15 1123 Date of Service: 05/30/15639 Status: Signed Store Stock Help: JENNIFER Mendoza (Nurse Practitioner) [facility] Service: Financial Analyst Progress Note Tony Fortune 54 y.o. Hospital Day: LOS: 2 days Post-Op Day: 1 Day Post-Op Consulting Physicians Treatment Team: Admitting Provider: Livier Betancur MD SUBJECTIVE Patient Summary: The patient is a 54 y.o. male with significant past medical history of alcohol abuse, frequent falls who originally presented back in September after being found down and unresponsive and was found to have an acute right SDH for which he underwent evacua tion by Dr. Chong. Dr. Chong was unable to replace the bone flap because of severe charissa ma so he was discharged with a helmet with plans to a cranioplasty at a later date. He prese nted on 05/28 and went to the OR w/ Dr. Betancur for a right FTP cranioplasty. He did well post operatively however his CT scan in the AM showed an EDH, pneumocephalus, and a significant r ight to left MLS. His neuro exam this morning continued to deteriorate to the point where he was unable to speak and shortly thereafter lost all motor control. He was taken back the OR emergently by Dr. Betancur for evacuation of the EDH, pneumocephalus, and elevation of the ri ght bone flap. He was brought back to the ICU intubated. The ICU team has been requested to help with ventilator liberation. ICU Timeline: 05/29/15: ICU service consulted to assist with vent management. Now extubated Events Overnight: 335ml out of drains since placed. More alert. NS plan reviewed, p keely for additional day in ICU SCHEDULED MEDICATIONS clindamycin 900 mg Intravenous Q8H docusate sodium 100 mg Oral BID famotidine 20 mg Oral BID Or famotidine 20 mg Intravenous BID levETIRAcetam (KEPPRA) IVPB 500 mg Intravenous Q12H CONTINUOUS INFUSIONS 0.9 % NaCl with KCl 20 mEq 110 mL/hr at 05/30/15 0500 OBJECTIVE VITAL SIGNS Temp: [97.4 F (36.3 C)-100.2 F (37.9 C)] 98.5 F (36.9 C) Heart Rate: [53-133] 59 Resp: [9-28] 12 Arterial Line BP: (92-153)/(54-87) 113/64 mmHg FiO2 : [25 %-85 %] 25 % Intake/Output Summary (Last 24 hours) at 05/30/15 0641 Last data filed at 05/30/15 0600 Gross per 24 hour Intake 2046 ml Output 2115 ml Net -69 ml EXAM GEN: awake, alert, oriented x3, NAD NEURO: PERRLA, EOMI, mild right sided facial asymmetry, moves all extremities well GCS: 15 HEENT: sclerae clear, nonicteric, oral mmm, pink, no exudates, large bulky surgical drsg/dr forde in place NECK: supple, trachea midline HEART: RRR, S1/S2, no murmur, rub or gallop LUNGS: clear b/l, no wheezing, rales or rhonchi, symmetric chest expansion, even/unlabored respirations ABD: soft, nondistended, nontender to palpation, no masses, no hepatosplenomegaly EXTR: no edema, clubbing or cyanosis SKIN: warm, dry, no rash or mottling; no e/o skin breakdown over the occiput, scapulae, elb ows, sacrum or heels LINES/TUBES: a line, daniels, PIVs DATA Recent Labs Lab 05/30/1525805/29/15 1731 05/29/15 1527 05/29/15 0358 WBC 7.34 -- -- 9.09 RBC 3.24* -- -- 4.00* HGB 8.8* -- 11.9* 11.0* HCT 27.5* -- 35* 33.7* MCV 85.1 -- -- 84.3 MCH 27.3 -- -- 27.6 MCHC 32.1 -- -- 32.8 RDW 47.3 -- -- 45.1 PLT 117* 151 -- 135* MPV 9.7 -- -- 9.2 NEUTROABS 5.32 -- -- 6.90 LYMPHSABS 1.22 -- -- 1.36 MONOSABS 0.76 -- -- 0.79 BASOSABS 0.02 -- -- 0.02 EOSABS 0.02 -- -- 0.02 Recent Labs Lab 05/30/1525805/29/15 0358 NA 135 134* K 3.7 4.1 CL 106 102 CO2 27 26 ANIONGAP 6 10 GLUF 106* 109* BUN 5* 7* CREATININE 0.50* 0.62* BCR 10 11 CA 8.1* 8.8 EGFR >60 >60 PHOS 2.8 -- MG 1.8 -- Recent Labs Lab 05/30/15 0259 05/29/15 [address] Head Without Contrast 05/29/2015 1. Large subdural hemorrhage beneath the right replaced craniotomy measuring 13 .7 x 2.6 cm axial by approximately 8 cm superoinferior dimension, communicating anteriorly w ith the subcutaneous tissues, with subcutaneous hemorrhage superficial to the craniotomy. 2. Midline shift from right to left has increased from 8 mm previous to the craniotomy replac ement to 16 mm presently. These findings were discussed over the phone with Dr. Betancur at 10 :00 AM date of study. 3. Perhaps subtle right uncal herniation, but with unchanged mild chr onic displacement of the brainstem towards the right. Brainstem cisterns otherwise unremarka ble. 4. Asymmetric prominence left lateral ventricle. Early trapping cannot be excluded. E lectronically signed by Kyrie Lux MD on 05/29/2015 10:18 AM X-ray Chest 1 View 05/29/2015 1. No acute cardiopulmonary process. X-ray Ct Head Portable Unenhanced 05/29/2015 1. Improving larger right subdural hematoma with approximately 1 cm of midline shift to the left side which measured 1.8 cm previously. 2. Postsurgical change on the righ t side with large right craniotomy and mild improving pneumocephalus. LEM LIST Active Problems: Hyposmolality and/or hyponatremia Seizures (HCC) Acute respiratory failure (HCC) Anemia Thrombocytopenia (HCC) Pneumocephalus Midline shift of brain Epidural hemorrhage (HCC) ASSESSMENT & PLAN NEURO: Right FTP cranioplasty w/ postoperative EDH collection, pneumocephalus, and worsened mid line shift. Back to OR w/ Dr. Betancur. Neuro exam much improved. Repeat CT head post OR w/ im provement in EDH fluid collection and pneumocephalus. MLS remains but improved from prior to OR. Extubated with f/u imaging this am showing ongoing improvement. 335ml out since drain placement. Hx of depression: Home dose Paxil resumed Seizure d/o. Continue keppra. CV: No acute issues. PULM: Acute respiratory failure s/p OR. Intubated and on minimal settings. ABG WNL. Extubated 05/29 pm. Now on NC. No acute issues. GI/NUTRITION: NPO for now. Advance per NS RENAL/LYTES: Mild hyponatremia--RESOLVED. Na 135 (05/30). On MIV fluids. Monitor. ID: No acute issues. Afebrile. On perioperative clinda for 2 doses. PCN allergic. HEME: Anemia of chronic disease. Most likely from bone marrow suppression from chronic alcohol ism. Stable w/o active signs of bleeding. (05/30 8.8) Thrombocytopenia. As above (05/30 117K) ENDO: No acute issues. BG 106 MUSC/SKIN: Early ambulation once stable from neurosurgery standpoint. PT/OT consults. PROPHYLAXIS: Stress ulcer prophylaxis: pepcid DVT prophylaxis: SCDs only, no chemoppx until cleared by NS Disposition: Discuss possible transfer with NS--will likely spend an additional day. Code Status: Full Code *Please bill 45 minutes of critical care time spent evaluating the patient, reviewing the d travis and formulating a plan exclusive of all other procedures. JENNIFER Mendoza 05/30/2015 6:41 AM Livier Briseno - 05/29/2015 2:21 PM PDT Progress Notes by Livier Betancur MD at 05/29/15 142 Author: Livier Betancur MD Service: Neurosurgery Author Type: Physician Filed: 05/29/15 1422 Date of Service: 05/29/151420 Status: Signed Store Stock Help: Livier Betancur MD (Physician) ICU nurse states the patient seems more lethargic. I will plan a return to the OR now to e valuate the pressure present beneath the right-sided cranial flap. onversion Transactio n, Provider Unknown - 05/29/2015 1:24 PM PDT Case Management by TABITHA Sidhu at 05/29/15 1324 Author: TABITHA Sidhu Service: (none) Author Type: Creel Selector Filed: 05/29/15 1328 Date of Service: 05/29/151323 Status: Signed Store Stock Help: TABITHA Sidhu (Creel Selector) 05/29/15 1320 Discharge Planning Evaluation Admitting Diagnosis Right [id number] cranioplasty Readmission Other (comment) Living Arrangements Other (Comment) (skilled nursing) Support Systems Parent Type of Residence retirement facility ([facility]) Independent with ADL's No-comment Independent with Mobility No-comment (require w/c) Home Care Services No Mental Status Other (comment) (just starting to follow commands after surgery) Prior functional status Previously at [facility] and [facility]. Stiill is at [facility] and mother states that plan is to retun there. Anticipated Discharge Plan Plan communicated to patient/family Yes Resources Financial concerns No Transportation issues No Patient/Family concerns No Prescription Plan Yes Anticipated Disposition Facility Type retirement facility Long-Term Facility Other (comment) ([facility]) Met with: pt's mother Teressa who tells me she is the healthcare decision-maker for pt and discussed discharge planning, Pt is a 54 y.o., male s/p cranioplasty. Pt has been at [facility] for the last 2-3 months per mother. Plan is for pt to live with his mother donal ut he requires significant care at this time. E-faxed referral to Dianna at [facility]. Patient's PCP is: [facility] Patient's insurance:[place] Medicaid - [place] Coverage concerns: Medication coverage/concerns: [facility] Bedside Delivery: Community resources utilized / needed: Assistance in transportation: may need ambulance transfer back to [place] Identification of any specific education / training: Barriers to Discharge / Alternative housing needed: Anticipated DCP: Back to [facility]. Referral faxed to [facility]. HAYES STEEN Livier Briseno - 05/29/2015 12:37 PM PDTFormatting of this note might be different from the or iginal. Progress Notes by Livier Betancur MD at 05/29/15 1237 Author: Livier Betancur MD Service: Neurosurgery Author Type: Physician Filed: 05/31/15941 Date of Service: 05/29/151236 Status: Addendum Store Stock Help: Livier Betancur MD (Physician) Related Notes: Original Note by Livier Betancur MD (Physician) filed at 05/29/15 1247 EXAM: Patient does nod his head yes when asked if he has a headache. Opens eyes to noxious stimuli. Follows commands rapidly to squeeze right hand and wiggles bilateral toes. Palpable subcutaneous air present beneath right scalp flap. Procedure note: I did attempt to release/evacuate the right frontal subcutaneous air with a 21-gauge needle , after thoroughly cleansing the skin surface with Betadine. No significant air could be ev acuated. A/P: S/P right cranioplasty, with significant right to left MLS Right-sided epidural hematoma Compression of the brain Plan to try O2 non-rebreather now, in an attempt to improve pneumocephalus. If patient continues to FCs, will monitor with serial neuro exams. If he worsens neurologi yoon, plan return to the OR to likely place right epidural drain. onversion Transactio n, Provider Unknown - 05/29/2015 12:19 PM PDT Nurse Progress Note by Pelon Galan at 05/29/15 1219 Author: Pelon Galan Service: Wound/Ostomy Care Author Type: Nurse Wet Mixer Filed: 05/29/15 1220 Date of Service: 05/29/159 Status: Signed Store Stock Help: Pelon Galan (Nurse Wet Mixer) Patient seen today for low Bon score. Patient's score 13*. Patient is at moderate risk for pressure ulcer. At this time no skin breakdown per ICU nurse. Care plan in place. SP OT in place. onver alem Transaction, Provider Unknown - 05/29/2015 12:10 PM PDT Progress Notes by Debra Fitzpatrick RPH at 05/29/15 1210 Author: Debra Fitzpatrick RPH Service: (none) Author Type: Pharmacist Filed: 05/29/151209 Date of Service: 05/29/151209 Status: Signed Store Stock Help: Debra Fitzpatrick RPH (Pharmacist) Renal Dosing Monitoring: Tony Fortune 54 y.o. male Pharmacy dosing for renal function per Dr. Rios SCr = 0.62, est CrCl = 139 Plan per protocol: Based on current levels, medications do not require ajdustments for renal function. Pharmacy will continue monitoring patient for appropriate dosing per renal function. 05/29/2015 12:07 PM Pharmacist: Debra Fitzpatrick >> JOYCE SWENSON 05/28/2015 11:20 Clinical Pharmacy Note: Renal Monitoring Tony Fortune 54 y.o. male Ht Readings from Last 1 Encounters: 05/28/15 1.778 m (5' 10") Wt Readings from Last 1 Encounters: 05/28/15 78.9 kg (173 lb 15.1 oz) CREATININE Date Value Ref Range Status 11/26/2014 0.62* 0.70 - 1.30 mg/dL Final Comment: Testing performed at [facility], [address] [place] [address] Creatinine clearance cannot be calculated (Patient's most recent sCr result is older than t he maximum 3 days allowed.) Pharmacy dosing for renal function per Dr. Rios. Currently, there are no medications needing to be adjusted. Pharmacy will continue to monit or for changes in medication orders and in renal function and adjust accordingly. Joyce Swenson RPh 05/28/2015 11:20 AM RDSteele Livier - 05/29/2015 9:54 AM PDTFormatting of this note might be different from the or iginal. Progress Notes by Livier Betancur MD at 05/29/15953 Author: Livier Betancur MD Service: Neurosurgery Author Type: Physician Filed: 05/29/15 1003 Date of Service: 05/29/15953 Status: Signed Store Stock Help: Livier Betancur MD (Physician) POD#1 The patient was nauseated with emesis this morning. He reportedly did eat some breakfast without great difficulty. He does nod his head yes when asked if he has a headache. Current Labs: CBC: Lab Results Component Value Date WBC 9.09 05/29/2015 RBC 4.00* 05/29/2015 HGB 11.0* 05/29/2015 HGB 11.9* 10/11/2014 HCT 33.7* 05/29/2015 HCT 35* 10/11/2014 MCV 84.3 05/29/2015 MCH 27.6 05/29/2015 MCHC 32.8 05/29/2015 RDW 45.1 05/29/2015 PLT 135* 05/29/2015 MPV 9.2 05/29/2015 DIFFTYPE AUTOMATED 05/29/2015 BMP: Lab Results Component Value Date NA 134* 05/29/2015 K 4.1 05/29/2015 CL 102 05/29/2015 CO2 26 05/29/2015 ANIONGAP 10 05/29/2015 GLUF 109* 05/29/2015 BUN 7* 05/29/2015 CREATININE 0.62* 05/29/2015 BCR 11 05/29/2015 CA 8.8 05/29/2015 EGFR >60 05/29/2015 EXAM: The patient does open his eyes briefly to voice. Pupils are reactive 4 to 3 mm bilaterally. The patient nods yes or no to questions, but does not speak to me this morning. The patient does follow commands with squeezing of his right hand and wiggling all toes whe n asked. Unchanged left upper extremity weakness. Scalp dressing is in place. IMAGING REVIEW: The a.m. head CT which was just performed demonstrates worsened right to left midline shift , with a large epidural fluid collection and a small amount of subdural hemorrhage. Epidura l and subcutaneous pneumocephalus is present in the right frontal region. ASSESSMENT: Status post large right-sided cranioplasty PLAN: The patient's head CT is worsened in appearance this morning, following the replacement of the right bone flap. As long as the patient continues to have some neuro exam to follow, I will continue with serial neurologic observation. I do believe that the right frontal pneum ocephalus will improve and the fluid shifts will equilibrate if given more time. I will plan to continue with neurologic observation in the Intensive Care Unit today. I will plan a repeat head CT for tomorrow morning. The patient will undergo a swallow study today. onversion Transactio n, Provider Unknown - 05/28/2015 11:20 AM PDT Progress Notes by Joyce Swenson RPH at 05/28/15 1120 Author: Joyce Swenson RPH Service: (none) Author Type: Pharmacist Filed: 05/28/15 112 Date of Service: 05/28/151119 Status: Signed Store Stock Help: Joyce Swenson RPH (Pharmacist) Clinical Pharmacy Note: Renal Monitoring Tony Fortune 54 y.o. male Ht Readings from Last 1 Encounters: 05/28/15 1.778 m (5' 10") Wt Readings from Last 1 Encounters: 05/28/15 78.9 kg (173 lb 15.1 oz) CREATININE Date Value Ref Range Status 11/26/2014 0.62* 0.70 - 1.30 mg/dL Final Comment: Testing performed at [facility], [address] [place] [address] Creatinine clearance cannot be calculated (Patient's most recent sCr result is older than t he maximum 3 days allowed.) Pharmacy dosing for renal function per Dr. Rios. Currently, there are no medications needing to be adjusted. Pharmacy will continue to monit or for changes in medication orders and in renal function and adjust accordingly. Joyce Swenson RPh 05/28/2015 11:20 AM onver alem Transaction, Provider Unknown - 05/28/2015 11:17 AM PDT Nurse Progress Note by Anna Gates RN at 05/28/15 1117 Author: Anna Gates RN Service: (none) Author Type: Registered Nurse Filed: 05/28/15 1118 Date of Service: 05/28/151116 Status: Signed Store Stock Help: Anna Gates RN (Registered Nurse) Report from Shayna avelar [facility] states that patient has been NPO since midnight exc ept for a sip of water with his morning Keppra. She also states that the patient did receiv e his Hibiclens shower as per order. Anna Gates RN 05/28/2015, 11:18 AM onver alem Transaction, Provider Unknown - 05/28/2015 10:41 AM PDT Nurse Progress Note by Anna Gates RN at 05/28/15 1041 Author: Anna Gates RN Service: (none) Author Type: Registered Nurse Filed: 05/28/15 1042 Date of Service: 05/28/15 104 Status: Signed Store Stock Help: Anna Gates RN (Registered Nurse) Lamine from the lab at [facility] to fax MRSA PCR results and U/A results. Anna Gates RN 05/28/2015, 10:42 AM docume nted in this encounter H&P Notes Livier Betancur - 05/28/2015 7:52 AM PDT H&P by Livier Betancur MD at 05/28/15 075 Author: Livier Betancur MD Service: Neurosurgery Author Type: Physician Filed: 05/28/15 0755 Date of Service: 05/28/15751 Status: Addendum Store Stock Help: Livier Betancur MD (Physician) Related Notes: Original Note by Livier Betancur MD (Physician) filed at 05/28/15 0751 CHIEF COMPLAINT: Mr. Tony Fortune is seen in consultation at the request of the Clinic, [facility] for evaluation for possibility of cranioplasty. HISTORY OF PRESENT ILLNESS: The patient is not accompanied by a family member or a chemical sales representative from his care facilit y today. The patient is a 54 y.o. male with a history of alcohol abuse, who was found down and unresponsive on October 11, 2014. He was transferred to the [facility]. The patient was seen upon his presentation to the [facility] Department on 10/11/2014, by Dr. Eren Chong. Dr. Chong did take the patient emergently to the operative suite and performe d an evacuation of a right acute subdural hematoma, with opening of the dura. Due to the swo llen brain, the dura was not closed, but DuraGen was placed over the dura. The right-sided b one flap was left off, and sent to the bone freezer storage in [place]. The patient was desean ntually discharged to his home on 11/12/2014. Clinic notes state that he was mildly confused. Dr. Konstantin Chong is not available for follow-up for this patient. Therefore the patient is now seeing me. Today, the patient is seated in a wheelchair, wearing his protective helmet. He is able to answer some questions, such as his name. He states that he does have a headac he daily. He does not give me any additional details. Allergies Allergen Reactions Penicillins Other (See Comments) Unknown Past Medical History Diagnosis Date Alcohol abuse Frequent falls Drug abuse Past Surgical History Procedure Laterality Date No past surgeries Craniotomy Right 10/11/2014 Procedure: CRANIOTOMY - FOR BLEED; Surgeon: Anthony Chong MD; Location: [facility] MAIN OR; Service: Neurosurgery; Laterality: Right; Craniectomy Right 10/11/2014 Procedure: CRANIECTOMY; Surgeon: Anthony Chong MD; Location: [facility] MAIN OR; Servic e: Neurosurgery; Laterality: Right; History Substance Use Topics Smoking status: Current Every Day Smoker Types: Cigarettes Smokeless tobacco: Not on file Alcohol Use: Yes Comment: several large malt beers daily when he binge drinks but has periods of not terra lopez Current outpatient prescriptions:acetaminophen (TYLENOL) 650 MG CR tablet, Take 650 mg by m outh every 8 (eight) hours as needed for Pain., Disp: , Rfl: ; HYDROcodone-acetaminophen (NO RCO) 5-325 MG per tablet, Take 1 tablet by mouth every 6 (six) hours as needed for Pain., Di sp: 20 tablet, Rfl: 0; levetiracetam (KEPPRA) 250 MG tablet, Take 5 tablets by mouth 2 (two) times daily., Disp: 150 tablet, Rfl: 0 Multiple Vitamin (MULTIVITAMIN) tablet, Take 1 tablet by mouth daily., Disp: , Rfl: ; QUEti apine (SEROQUEL) 25 MG tablet, Take 1 tablet by mouth nightly., Disp: 30 tablet, Rfl: 0; thi amine (VITAMIN B-1) 100 MG tablet, Take 1 tablet by mouth daily., Disp: 30 tablet, Rfl: 0 The patient is unable to give me answers to a review of systems. PHYSICAL EXAM: General: Patient is seated in a wheelchair. He does not open his eyes. Head: Obvious asymmetry of the school, with a sunken right skin flap. The skin incision appears c lean, dry, and intact. Eyes: Sclerae non-icteric, non-injected. Mouth: Oropharynx without exudate. No tongue fasciculations present. Abdomen: Soft, non-tender, non-distended. Msk: There are no deformities to palpation of the axial scotty. Pulses: Radial pulses 2+ bilaterally. Extremities: No clubbing, cyanosis, or edema. No asymmetry, mass or effusion. Neurologic: Cranial Nerves: III, IV,: Pupils are equal and reactive bilaterally, at 5 to 4 mm. V: Facial sensation normal and symmetric. VII: Facies symmetric, facial strength normal bilaterally. VIII: Able to hear finger rub bilaterally. IX: Palate excursion full and symmetric. Muscle tone: Normal on the right, without spasticity or flaccidity. There are contractures of the left arm at the elbow. Pruitt sign: Negative on the left, positive on the right. Clonus: 4 beats on the right, 5 on the left. Sensory: Light touch subjectively intact throughout. Psych: Oriented to person and situation. Speech is intact, but not fluent. He does whisper his ans wers. Detailed Neurologic Exam Motor Strength: Right: Biceps: 4/5 Triceps: 4/5 Wrist extensors: 4/5 Wrist flexors: 4/5 Interossei: 4/5 Iliopsoas: 5/5 Quadriceps: 5/5 Hamstrin/5 Anterior tibialis: 4/5 Plantar flexion: 4/5 Left: Biceps: 0/5 Triceps: 0/5 Wrist extensors: 0/5 Wrist flexors: 0/5 Interossei: 1/5 Iliopsoas: 0/5 Quadriceps: 0/5 Hamstrin/5 Anterior tibialis: 0/5 Plantar flexion: 0/5 Reflex Exam: Right: Biceps: 3+ Brachioradialis: 3+ Triceps: 2+ Knee: 2+ Ankle: 2+ Left: Biceps: 3+ Brachioradialis: 3+ Triceps: 2+ Knee: 2+ Ankle: 0 IMAGING REVIEW (these film images were reviewed by me) : The patient underwent a head CT without contrast dated 03/08/2015. These images demonstrate a large right-sided skull defect present. There is no acute hemorrhage noted. There is no hy drocephalus present. There is mild btqvy-[id number] midline shift present secondary to the defo rmity of the right side of the brain. ASSESSMENT: Status post right-sided decompressive craniectomy Right cranial defect PLAN: The patient is a candidate for replacement of his right-sided bone flap. The patient is unable to give me any details regarding his current functional status. He st ates he does live at home and at a care facility. He states that at his home, his mother swift s help care for him. There are no notes or personnel accompanying the patient today. If additional information could be obtained regarding his current medications and care deta ils, it is likely the patient could be scheduled to undergo a right-sided cranioplasty. His bone flap is reportedly stored at the off-site storage facility. I did discuss the risks of the surgery with the patient, and expected post-operative recove ry time.The risks of the craniotomy surgical procedure were discussed with the patient in gr eat detail. These risks include, but are not limited to, bleeding, scarring, infection, weak ness, numbness, paralysis, vision changes/blindness, loss of hearing, loss of speech/speech difficulties, seizures, need for additional procedures, and . The patient had no additional questions for me today. documented in this en counter Procedure Notes Conversion Transaction, Provider Unknown - 05/24/2015 5:57 PM PDTFormatting of this note m ight be different from the original. Pre-Procedure Instructions by Melissa Alonzo RN at 05/24/151756 Author: Melissa Alonzo RN Service: (none) Author Type: Registered Nurse Filed: 05/24/15 1800 Date of Service: 05/24/151756 Status: Signed Store Stock Help: Melissa Braich, RN (Registered Nurse) rec'd cxr report from Thomas Diaz 05/24/2015: @ view [facility] LAT " findings: no consolidation or interstitial infiltrate is identified. Costophrenic angles are well defined. Cardiomediasti nal contours are within normal limits. Impression: no acute pulmonary disease" dictated by Kuldeep Zheng MD. Hard copy of report on pt's chart. onver alem Transaction, Provider Unknown - 05/24/2015 4:40 PM PDT Pre-Procedure Instructions by Melissa Alonzo RN at 05/24/15 1640 Author: Melissa Alonzo RN Service: (none) Author Type: Registered Nurse Filed: 05/24/15 1649 Date of Service: 05/24/15 1640 Status: Signed Store Stock Help: Melissa Alonzo RN (Registered Nurse) Called Dorcas at [facility] again, and requested labs and diagnostics results faxed jae/stat d/t surgery 05/28/2015. Rec'd call from anisa at Dr Betancur's office inquiring about preop iram gnostics for pt. Relayed to Anisa that labs were drawn this afternoon, ekg and cxr done thi s afternoon too. She requested that abnormal values be called Dr Betancur and anesthesia per p rotocol. Anisa stated pt can have UA, MRSA and type and screen done on day of surgery if no t done today. She also stated that the pt may be moved to second case so he can have w/u don e before surgery 05/28/2015. Called thomas Diaz, spoke with Andreas in the lab, she will fax results now. Spoke with Nina in imaging, she stated she will send the images for ekg and c xr on PAX system. She also stated that the reports will not be read until next week, but Samuel villagomez has access to PAX images. Also, Lyndsay from [facility] stated she may not be able to get U A, because she does not have an order for straight cath. Relayed to Anisa at Dr Betancur's of [facility]. onver alem Transaction, Provider Unknown - 05/24/2015 1:14 PM PDT Pre-Procedure Instructions by Melissa Alonzo RN at 05/24/15 1314 Author: Melissa Alonzo RN Service: (none) Author Type: Registered Nurse Filed: 05/24/15 1315 Date of Service: 05/24/15 1314 Status: Signed Store Stock Help: Melissa Alonzo RN (Registered Nurse) Called [facility] in [place] to follow up on ordered diagnostics. Dorcas, at [facility] y stated they were just now getting the lab drawn, and will get cxr and ekg today. I asked er to run those results stat. She agree and stated that she will fax results to [facility] today. docume nted in this encounter Consult Notes Prasad Booker ARNP - 05/29/2015 4:55 PM PDTFormatting of this note might be different fr om the original. Consult* by JENNIFER Putnam at 05/29/151654 Author: JENNIFER Putnam Service: Financial Analyst Author Type: Advanced Registered Nurse Practitioner Filed: 05/29/152111 Date of Service: 05/29/151654 Status: Addendum Store Stock Help: JENNIFER Putnam (Advanced Registered Nurse Practitioner) Related Notes: Original Note by JENNIFER Putnam (Advanced Registered Nurse Practition er) filed at 05/29/15 8898 [facility] Service: Financial Analyst Initial Consult Note Tony Fortune 54 y.o. Date of Admission: 05/28/2015 Reason for Consultation: Ventilator managment Requesting Physician: Dr. Betancur, Neurosurgery History Obtained From: chart review CHIEF COMPLAINT: intubated post OR HISTORY OF PRESENT ILLNESS The patient is a 54 y.o. male with significant past medical history of alcohol abuse, frequ ent falls who originally presented back in September after being found down and unresponsive a nd was found to have an acute right SDH for which he underwent evacuation by Dr. Chong. Dr. Chong was unable to replace the bone flap because of severe edema so he was discharge d with a helmet with plans to a cranioplasty at a later date. He presented on 05/28 and went to the OR w/ Dr. Betancur for a right FTP cranioplasty. He did well post operatively however his CT scan in the AM showed an EDH, pneumocephalus, and a significant right to left MLS. H is neuro exam this morning continued to deteriorate to the point where he was unable to spea k and shortly thereafter lost all motor control. He was taken back the OR emergently by Dr. Betancur for evacuation of the EDH, pneumocephalus, and elevation of the right bone flap. He was brought back to the ICU intubated. The ICU team has been requested to help with ventil ator liberation. REVIEW OF SYSTEMS Review of systems not obtained due to intubated. PAST MEDICAL HISTORY Past Medical History Diagnosis Date Alcohol abuse Frequent falls Drug abuse Seizures (HCC) Other chronic pain Depression Skin abscess Anemia Hemiparesis (HCC) PAST SURGICAL HISTORY Past Surgical History Procedure Laterality Date Craniotomy Right 10/11/2014 Procedure: CRANIOTOMY - FOR BLEED; Surgeon: Anthony Chong MD; Location: [facility] IN OR; Service: Neurosurgery; Laterality: Right; Craniectomy Right 10/11/2014 Procedure: CRANIECTOMY; Surgeon: Anthony Chong MD; Location: [facility] OR; Ser vice: Neurosurgery; Laterality: Right; Cranial flap replacement Right 05/28/2015 Procedure: CRANIAL - FLAP REPLACEMENT; Surgeon: Livier Betancur MD; Location: [facility] OR; Service: Neurosurgery; Laterality: Right; ALLERGIES Allergies Allergen Reactions Penicillins Other (See Comments) Unknown MEDICATIONS PRIOR TO ADMISSION Prescriptions prior to admission Medication Sig Dispense Refill Last Dose acetaminophen (TYLENOL) 650 MG CR tablet Take 650 mg by mouth every 8 (eight) hours as needed for Pain. 05/27/2015 at 2100 docusate sodium (COLACE) 100 MG capsule Take 100 mg by mouth daily. Indications: Consti pation 05/27/2015 at 0800 HYDROcodone-acetaminophen (NORCO) 5-325 MG per tablet Take 1 tablet by mouth every 6 (s ix) hours as needed for Pain. 20 tablet 0 05/27/2015 at 1700 levetiracetam (KEPPRA) 250 MG tablet Take 5 tablets by mouth 2 (two) times daily. (Juhi ent taking differently: Take 1,250 mg by mouth 2 (two) times daily. Indications: Seizures re lated to alcoholism in past) 150 tablet 0 05/28/2015 at 0800 Multiple Vitamin (MULTIVITAMIN) tablet Take 1 tablet by mouth daily. 05/27/2015 at 0800 PARoxetine (PAXIL) 10 MG tablet Take 10 mg by mouth every morning. Indications: Major D epressive Disorder 05/27/2015 at 0800 senna (SENOKOT) 8.6 MG tablet Take 1 tablet by mouth 2 (two) times daily. Indications: Constipation 05/27/2015 at 1600 thiamine (VITAMIN B-1) 100 MG tablet Take 100 mg by mouth daily. 05/27/2015 at 0800 bisacodyl (DULCOLAX) [address] 10 mg rectally as needed. Indications: Con stipation Unknown at Unknown time magnesium hydroxide (MILK OF MAGNESIA) 400 MG/5ML suspension Take 30 mLs by mouth as ne eded for Constipation. Unknown at Unknown time mineral oil enema Place 1 enema rectally as needed for Constipation. Unknown at Unkno wn time ondansetron (ZOFRAN) 4 MG tablet Take 4 mg by mouth every 6 (six) hours as needed for N ausea. Unknown at Unknown time polyethylene glycol (GLYCOLAX) packet Take 17 g by mouth as needed. Indications: Consti pation Unknown at Unknown time QUEtiapine (SEROQUEL) 25 MG tablet Take 1 tablet by mouth nightly. 30 tablet 0 11/21/2014 at Unknown time thiamine (VITAMIN B-1) 100 MG tablet Take 1 tablet by mouth daily. 30 tablet 0 11/22/2014 at 0800 SCHEDULED MEDICATIONS clindamycin 900 mg Intravenous Q8H docusate sodium 100 mg Oral BID famotidine 20 mg Oral BID Or famotidine 20 mg Intravenous BID levETIRAcetam 500 mg Intravenous Q12H CONTINUOUS INFUSIONS 0.9 % NaCl with KCl 20 mEq 110 mL/hr at 05/29/15 1115 FAMILY HISTORY OF SIGNIFICANCE History reviewed. No pertinent family history. SOCIAL HISTORY History Social History Marital Status: Spouse Name: N/A Number of Children: N/A Years of Education: N/A Occupational History Not on file. Social History Main Topics Smoking status: Former Smoker Types: Cigarettes Smokeless tobacco: Never Used Comment: Quit 03/2015 Alcohol Use: Yes Comment: several large malt beers daily when he binge drinks but has periods of not terra lopez Drug Use: Yes Comment: uknown but possibly methamphetamines Sexual Activity: Not on file Other Topics Concern Not on file Social History Narrative PHYSICAL EXAM VITAL SIGNS Temp: [97.4 F (36.3 C)-98.2 F (36.8 C)] 97.6 F (36.4 C) Heart Rate: [53-97] 80 Resp: [7-23] 16 BP: (95-125)/(64-86) 119/74 mmHg Arterial Line BP: (106-153)/(61-85) 149/77 mmHg FiO2 : [30 %-85 %] 30 % Intake/Output Summary (Last 24 hours) at 05/29/15 1743 Last data filed at 05/29/15 1400 Gross per 24 hour Intake 2163 ml Output 1585 ml Net 578 ml EXAM GEN: intubated, not sedated, arouses easily, does not appear in distress NEURO: PERRLA, EOMI, no facial asymmetry, able to follow commands w/ all extremities, LUE c ontracted at baseline but does have some gross motor movement, + cough/gag/corneal reflexes GCS: E3 V1T M6 = 10T HEENT: right FTP craniotomy dressing intact, sclerae clear, right periorbital edema, nonict liane, oral mmm, pink, no exudates, YOSEF drains x2 w/ sanguineous drainge NECK: supple, trachea midline HEART: RRR, S1/S2, no murmur, rub or gallop LUNGS: clear b/l, diminished BLL, no wheezing, rales or rhonchi, symmetric chest expansion, even/unlabored respirations ABD: soft, nondistended, nontender to palpation, no masses, no hepatosplenomegaly EXTR: no edema, clubbing or cyanosis, left hand contracted at baseline SKIN: warm, dry, no rash or mottling; no e/o skin breakdown over the occiput, scapulae, elb ows, sacrum or heels LINES/TUBES: oral ETT, OG tube, PIVs, left radial flavia DATA Recent Labs Lab 05/29/15 1731 05/29/15 1527 05/29/15 0358 WBC -- -- 9.09 RBC -- -- 4.00* HGB -- 11.9* 11.0* HCT -- 35* 33.7* MCV -- -- 84.3 MCH -- -- 27.6 MCHC -- -- 32.8 RDW -- -- 45.1 PLT 151 -- 135* MPV -- -- 9.2 NEUTROABS -- -- 6.90 LYMPHSABS -- -- 1.36 MONOSABS -- -- 0.79 BASOSABS -- -- 0.02 EOSABS -- -- 0.02 Recent Labs Lab 05/29/15 0358 NA 134* K 4.1 CL 102 CO2 26 ANIONGAP 10 GLUF 109* BUN 7* CREATININE 0.62* BCR 11 CA 8.8 EGFR >60 Recent Labs Lab 05/29/15 [address] head reviewed. CXR reviewed. PROBLEM LIST Active Problems: Hyposmolality and/or hyponatremia Seizures (HCC) Acute respiratory failure (HCC) Anemia Thrombocytopenia (HCC) Pneumocephalus Midline shift of brain Epidural hemorrhage (HCC) ASSESSMENT & PLAN NEURO: Right FTP cranioplasty w/ postoperative EDH collection, pneumocephalus, and worsened mid line shift. Back to OR w/ Dr. Betancur. Neuro exam much improved. Repeat CT head post OR w / improvement in EDH fluid collection and pneumocephalus. MLS remains but improved from dillan or to OR. Will work towards extubation. Will attempt to limit sedation. Seizure d/o. Continue keppra. CV: No acute issues. PULM: Acute respiratory failure s/p OR. Intubated and on minimal settings. ABG WNL. Will wo rk towards extubation when more awake. Multiple episodes of emesis today prior to surgery. Will watch for aspiration pneumonitis. GI/NUTRITION: NPO for now. RENAL/LYTES: Mild hyponatremia. On MIV fluids. Monitor. ID: No acute issues. Afebrile. On perioperative clinda for 2 doses. PCN allergic. HEME: Anemia of chronic disease. Most likely from bone marrow suppression from chronic alcoho lism. Stable w/o active signs of bleeding. Thrombocytopenia. As above. ENDO: No acute issues. MUSC/SKIN: Early ambulation once stable from neurosurgery standpoint. PT/OT consults. PROPHYLAXIS: Stress ulcer prophylaxis: pepcid DVT prophylaxis: SCDs only, no chemoppx until cleared by NS VAP: chlorhexadine oral care and HOB > 30 degrees Disposition: ICU care as outlined above. Code Status: Full Code Primary Care Physician: [facility] Thank you for allowing me to participate in the care of this patient. I will continue to follow with you. *Please bill 60 minutes of critical care time spent evaluating the patient, reviewing the d travis and formulating a plan exclusive of all other procedures. JENNIFER Putnam 05/29/2015 5:43 PM documente d in this encounter Miscellaneous Notes Plan of Care - Conversion Transaction, Provider Unknown - 05/31/2015 9:42 AM PDT Plan of Care by Italia Lo RN at 05/31/15941 Author: Italia Lo RN Service: (none) Author Type: Registered Nurse Filed: 05/31/15 1023 Date of Service: 05/31/15941 Status: Signed Store Stock Help: Italia Lo RN (Registered Nurse) Gait belt used to transfer patient at bedside to chair and to reposition. Patient assisted with urinal, but able to help use urinal while voiding. Set up for meals required, but patie nt able to assist with feeding himself. lan o f Care - Conversion Transaction, Provider Unknown - 05/31/2015 2:56 AM PDTFormatting of thi s note might be different from the original. Plan of Care by Soco Curry RN at 05/31/15255 Author: Soco Curry RN Service: (none) Author Type: Registered Nurse Filed: 05/31/15255 Date of Service: 05/31/15255 Status: Signed Store Stock Help: Soco Curry RN (Registered Nurse) Problem: Pain Goal: Patient s pain/discomfort is manageable Assess and monitor patient s pain using appropriate pain scale. Collaborate with interdis ciplinary team and initiate plan and interventions as ordered. Re-assess patient s pain le odette approximately 1-2 hours after pain management intervention. Premedicate as needed. Outcome: Progressing The patient continues to complain of incisional pain, which is managed with tylenol. Non-ph armacological interventions are also offered. lan o f Care - Conversion Transaction, Provider Unknown - 05/29/2015 11:00 PM PDTFormatting of thi s note might be different from the original. Plan of Care by Dolores Canada RN at 05/29/152299 Author: Dolores Canada RN Service: (none) Author Type: Registered Nurse Filed: 05/29/152304 Date of Service: 05/29/152299 Status: Signed Store Stock Help: Dolores Canada RN (Registered Nurse) Pt returned to OR to have drains placed. Continuing with close monitoring of neuro exam pe r orders. Pt is very emotional. Attempting to help him understand POC with regard to surger y, equipment, and coping with hospitalization. Pt is forgetful and requires repeated explai nations. p Not e - Livier Betancur - 05/29/2015 4:33 PM PDTFormatting of this note might be different f rom the original. Op Note by Livier Betancur MD at 05/29/15 163 Author: Livier Betancur MD Service: Neurosurgery Author Type: Physician Filed: 05/29/15 1933 Date of Service: 05/29/15 163 Status: Signed Store Stock Help: Livier Betancur MD (Physician) [facility] Service: Neurosurgery Operative Note Pre-operative Diagnosis: Right F-T-P EDH Post-operative Diagnosis: Same Procedure(s): Right bone flap elevation for EDH evacuation Surgeon: LIVIER BETANCUR MD Dedicated Local Truck Driver(s): None Anesthesia: General endotrachial anesthesia Estimated Blood Loss: Less Than 100 ml Other: 2 epidural YOSEF drains placed Indications: See pre-operative history and physical. Complications: None Condition: Stable LIVIER BETANCUR MD 05/29/2015 p Note - BetancurJessy cook ra - 05/29/2015 4:25 PM PDTFormatting of this note might be different from the sherriea lGris Op Note signed by Livier Betancur MD at 05/30/1544 Author: Livier Betancur MD Service: Neurosurgery Author Type: Physician Filed: 05/30/15 0844 Date of Service: 05/29/15 9667 Status: Signed Store Stock Help: Livier Betancur MD (Physician) TONY FORTUNE Date of : 1960 DATE OF SERVICE May 29, 2015. PRE-OPERATIVE DIAGNOSIS Right odofkk-pcnahnn-azgchtpg epidural hematoma/pneumocephalus. POST-OPERATIVE DIAGNOSIS Right dqwdpw-yhcadyn-htrdivml epidural hematoma/pneumocephalus. PROCEDURE Elevation of right-sided bone flap for evacuation of epidural hematoma. SURGEON Livier Betancur MD BRIGHT CUTTER None. ANESTHESIA General endotracheal anesthesia. ESTIMATED BLOOD LOSS 100 mL. DISPOSITION To the ICU, intubated, in stable condition. DESCRIPTION OF PROCEDURE The patient is a 54-year-old male who underwent an uneventful cranioplasty yesterday, with placement of a large right-sided ntdkfk-mfqdjtq-pccfgejl bone flap. The patient was monitore d in the intensive care unit. His head CT the next morning demonstrated expected fluid and a moderate amount of hemorrhage in the epidural space, but there was unexpected significant r sjug-lq-qzbs midline shift. The patient initially was doing fairly well with his neurologic exam, but the patient did become more lethargic throughout the morning. He therefore was ret urned to the operative suite for evacuation of the epidural collection. The patient was brought to the operative suites at [facility] on the af ternoon of May 29, 2015. The patient was intubated by the anesthesiologist without diff iculty. The patient's head was turned to the left and cradled in a horseshoe head worker. Th e scalp was cleansed briefly with a soap solution, and the existing scalp diamond were remov ed from the incision. The patient then underwent the standard Betadine and DuraPrep scrub. T he patient was draped in a standard fashion. The suture scissors were used to remove the gal eal Vicryl sutures. The large skin flap was reflected anteriorly, and the sutures in the tem poralis fascia were cut. The musculocutaneous flap was reflected anteriorly and held in plac e with fish hook retractors. The titanium miniscrews were removed from the skull bone and th e large bone flap was handed to the scrub nurse for cleansing and safe keeping on the back t able. A moderate amount of epidural hematoma was noted, and the continued sunken appearance of the patient's existing dura. The entire region was irrigated with a copious amount of ant ibiotic irrigation. Two separate epidural drains were placed, consisting of 10-Sammarinese round Mekhi drains, and e xited through separate stab incisions in the parietal region. The large bone flap was return ed to its anatomic position and secured in place again using the titanium miniplates and scr ews. The entire region was again irrigated with a copious amount of antibiotic irrigation. T he musculocutaneous flap was freed from the fish hook retractors and returned to its anatomi c position. The temporalis fascia was reapproximated using interrupted 2-0 Vicryl sutures. T he galea was reapproximated using interrupted 2-0 Vicryl sutures. The skin edges were reappr oximated with stainless steel diamond. The 2 exiting drains were secured to the skin using a 3-0 nylon suture. The drapes were removed from the patient. It was elected to leave the patient intubated. He was transferred to the ICU in stable condition. P/ P/dlm/[id number] LIVIER BETANCUR MD lan of Care - Conver alem Transaction, Provider Unknown - 05/28/2015 9:58 PM PDT Plan of Care by Dolores Canada RN at 05/28/15 2433 Author: Dolores Canada RN Service: (none) Author Type: Registered Nurse Filed: 05/28/15 1967 Date of Service: 05/28/152157 Status: Signed Store Stock Help: Dolores Canada RN (Registered Nurse) Pt neuro status is stable, but patient is forgetful. Neuro checks per protocol. Advised o f POC with frequent reminders. Managing pain per orders. No family at bedside at this time . p Not e - Livier Betancur - 05/28/2015 3:08 PM PDTFormatting of this note might be different f rom the original. Op Note signed by Livier Betancur MD at 05/29/15857 Author: Livier Betancur MD Service: Neurosurgery Author Type: Physician Filed: 05/29/15857 Date of Service: 05/28/15 150 Status: Signed Store Stock Help: Livier Betancur MD (Physician) LEVYALBERTREVOR ALONZOD Date of : 1960 DATE OF SERVICE May 28, 2015 PRE-OPERATIVE DIAGNOSIS Large right mrrtsf-rfeidqe-pmwvhyzk cranial defect. POST-OPERATIVE DIAGNOSIS Large right bdxfdc-pozruow-tqnfacjn cranial defect. PROCEDURE Right ozvnmq-grgcbze-rhjlvryx cranioplasty. SURGEON Livier Betancur MD BRIGHT CUTTER None. ANESTHESIA General endotracheal. ESTIMATED BLOOD LOSS 100 mL. DISPOSITION To the ICU, extubated, and in stable condition. STATEMENT OF MEDICAL NECESSITY The patient is a 54-year-old male who originally underwent an emergent large right fronto-t emporo-parietal subdural hematoma evacuation and decompressive craniotomy by another neurosu rgeon, Dr. Konstantin Chong, on October 11, 2014 after the patient had been found down and unre sponsive that day. The patient then recovered moderately well at a care facility. He did ret urn for replacement of his bone flap. DESCRIPTION OF PROCEDURE The patient was brought to the operating suite at [facility] on the aft ernoon of May 28, 2015 where general endotracheal anesthesia was induced by the anesthe usman service without complications. Appropriate lines and a Daniels catheter were placed. The patient's head was turned to the right and cradled on a horseshoe head worker. The hair was clipped extensively. The right scalp was prepped and draped in the standard sterile wagner gical fashion. A #10 blade scalpel was used to reincise the large trauma flap incision in th e right yamwgu-qpqtppf-cyqubgqi regions. Tamara scalp clips were applied to the skin edges to provide hemostasis. The scalp flap was carefully reflected anteriorly, and sharp dissection was used to free the musculocutaneous flap from the underlying dura/Duragen matrix. The ent thuan region was irrigated with a copious amount of sterile saline. The patient's mechoopda bone flap had been stored off-site in frozen storage. This bone flap was swabbed with culture hernandez bowling. The bone flap was soaked in Betadine solution and then rinsed in saline. Titanium minip lates and a small piece of titanium mesh were secured to the skull flap and this flap was re turned to its anatomic position. It was secured in place using multiple mini-titanium screws . The entire region was irrigated with a copious amount of antibiotic irrigation. The temporalis muscle was returned to its anatomic position and secured in place using inte rrupted 2-0 Vicryl sutures. The scalp flap was returned to its anatomic position and the gal ea was reapproximated using interrupted 2-0 Vicryl sutures. The skin edges were reapproximat ed using stainless steel diamond. The drapes were removed from the patient. Antibiotic ointment and a dressing was applied to the scalp incision. The patient was awakened from the anesthetic agent and extubated without complication. He w as transported to the ICU in stable condition. P/ P/[id number] LIVIER BETANCUR MD p Note - Jessy Betancur ra - 05/28/2015 2:50 PM PDTFormatting of this note might be different from the velasquez garsia Brief Op Note by Livier Betancur MD at 05/28/15 1084 Author: Livier Betancur MD Service: Neurosurgery Author Type: Physician Filed: 05/28/15 0484 Date of Service: 05/28/151449 Status: Signed Store Stock Help: Livier Betancur MD (Physician) [facility] Service: Neurosurgery Brief Op Note Pre-operative Diagnosis: Right nlrhex-wwqfext-fngxjras cranial defect Post-operative Diagnosis: Same Procedure(s): Right F-T-P cranioplasty Surgeon: LIVIER BETANCUR MD Dedicated Local Truck Driver(s): None Anesthesia: General endotrachial anesthesia Estimated Blood Loss: Less Than 50 ml Indications: See pre-operative history and physical. Complications: None Condition: Stable See dictated operative report for full details. LIVIER BETANCUR MD 05/28/2015 documented in this en counter Plan of Treatment Not on filedocumented as of this encounter Procedures + +--------+ + + + | Procedure Name | Priori | Date/Time | Associated Diagnosis | Comments | | | ty | | | | + +--------+ + + + | POTASSIUM | Routin | 05/31/2015 | | Results for this | | | e | 1:24 PM | | procedure are in the | | | | PDT | | results section. | + +--------+ + + + | MAGNESIUM | Routin | 05/31/2015 | | Results for this | | | e | 1:24 PM | | procedure are in the | | | | PDT | | results section. | + +--------+ + + + | EXTERNAL LAB: CBC | Routin | 05/31/2015 | | Results for this | | | e | 4:15 AM | | procedure are in the | | | | PDT | | results section. | + +--------+ + + + | PHOSPHORUS | Routin | 05/31/2015 | | Results for this | | | e | 4:15 AM | | procedure are in the | | | | PDT | | results section. | + +--------+ + + + | MAGNESIUM | Routin | 05/31/2015 | | Results for this | | | e | 4:15 AM | | procedure are in the | | | | PDT | | results section. | + +--------+ + + + | BASIC METABOLIC | Routin | 05/31/2015 | | Results for this | | PANEL | e | 4:15 AM | | procedure are in the | | | | PDT | | results section. | + +--------+ + + + | POTASSIUM | Routin | 05/30/2015 | | Results for this | | | e | 9:56 PM | | procedure are in the | | | | PDT | | results section. | + +--------+ + + + | PHOSPHORUS | Routin | 05/30/2015 | | Results for this | | | e | 9:56 PM | | procedure are in the | | | | PDT | | results section. | + +--------+ + + + | MAGNESIUM | Routin | 05/30/2015 | | Results for this | | | e | 9:56 PM | | procedure are in the | | | | PDT | | results section. | + +--------+ + + + | CT HEAD WO CONTRAST | Routin | 05/30/2015 | | Results for this | | | e | 5:55 AM | | procedure are in the | | | | PDT | | results section. | + +--------+ + + + | EXTERNAL LAB: CBC | Routin | 05/30/2015 | | Results for this | | | e | 2:59 AM | | procedure are in the | | | | PDT | | results section. | + +--------+ + + + | PTT | Routin | 05/30/2015 | | Results for this | | | e | 2:59 AM | | procedure are in the | | | | PDT | | results section. | + +--------+ + + + | PROTIME INR | Routin | 05/30/2015 | | Results for this | | | e | 2:59 AM | | procedure are in the | | | | PDT | | results section. | + +--------+ + + + | PHOSPHORUS | Routin | 05/30/2015 | | Results for this | | | e | 2:59 AM | | procedure are in the | | | | PDT | | results section. | + +--------+ + + + | MAGNESIUM | Routin | 05/30/2015 | | Results for this | | | e | 2:59 AM | | procedure are in the | | | | PDT | | results section. | + +--------+ + + + | BASIC METABOLIC | Routin | 05/30/2015 | | Results for this | | PANEL | e | 2:59 AM | | procedure are in the | | | | PDT | | results section. | + +--------+ + + + | XR CHEST 1 VIEW | Routin | 05/29/2015 | | Results for this | | | e | 5:36 PM | | procedure are in the | | | | PDT | | results section. | + +--------+ + + + | PLATELET COUNT | Routin | 05/29/2015 | | Results for this | | | e | 5:31 PM | | procedure are in the | | | | PDT | | results section. | + +--------+ + + + | CT HEAD WO CONTRAST | Routin | 05/29/2015 | | Results for this | | | e | 5:22 PM | | procedure are in the | | | | PDT | | results section. | + +--------+ + + + | PTT | Routin | 05/29/2015 | | Results for this | | | e | 4:07 PM | | procedure are in the | | | | PDT | | results section. | + +--------+ + + + | PROTIME INR | Routin | 05/29/2015 | | Results for this | | | e | 4:07 PM | | procedure are in the | | | | PDT | | results section. | + +--------+ + + + | FIBRINOGEN | Routin | 05/29/2015 | | Results for this | | | e | 4:07 PM | | procedure are in the | | | | PDT | | results section. | + +--------+ + + + | D-DIMER | Routin | 05/29/2015 | | Results for this | | | e | 4:07 PM | | procedure are in the | | | | PDT | | results section. | + +--------+ + + + | GREGOR JASON, | Routin | 05/29/2015 | | Results for this | | ARTERIAL | e | 3:27 PM | | procedure are in the | | | | PDT | | results section. | + +--------+ + + + | CT HEAD WO CONTRAST | Routin | 05/29/2015 | | Results for this | | | e | 9:47 AM | | procedure are in the | | | | PDT | | results section. | + +--------+ + + + | EXTERNAL LAB: CBC | Routin | 05/29/2015 | | Results for this | | | e | 3:58 AM | | procedure are in the | | | | PDT | | results section. | + +--------+ + + + | BASIC METABOLIC | Routin | 05/29/2015 | | Results for this | | PANEL | e | 3:58 AM | | procedure are in the | | | | PDT | | results section. | + +--------+ + + + | URINALYSIS, REFLEX | Routin | 05/28/2015 | | Results for this | | MICROSCOPIC AND/OR | e | 7:31 PM | | procedure are in the | | CULTURE | | PDT | | results section. | + +--------+ + + + | MRSA NAAT | Timed | 05/28/2015 | | Results for this | | | | 3:29 PM | | procedure are in the | | | | PDT | | results section. | + +--------+ + + + | CULTURE, FUNGUS | Timed | 05/28/2015 | | Results for this | | | | 12:05 PM | | procedure are in the | | | | PDT | | results section. | + +--------+ + + + | CULTURE, ANAEROBIC | Routin | 05/28/2015 | | Results for this | | | e | 12:05 PM | | procedure are in the | | | | PDT | | results section. | + +--------+ + + + | TYPE AND SCREEN | Routin | 05/28/2015 | | Results for this | | | e | 10:36 AM | | procedure are in the | | | | PDT | | results section. | + +--------+ + + + documented in this encounter Results Potassium (05/31/2015 1:24 PM PDT) + + + + + + | Component | Value | Ref Range | Performed | Pathologist | | | | | At | Signature | + + + + + + | K | 3.9Comment: Testing | 3.5 - 4.9 | EXTERNAL | | | | performed at [facility];[address] | mmol/L | LAB | | | | [address];[place] | | | | | | [address] | | | | + + + + + + + + | Specimen | + + | Blood specimen | | (specimen) | + + + +---------+ + + | Performing | Address | City/State/Zipcode | Phone Number | | Organization | | | | + +---------+ + + | EXTERNAL LAB | | | | + +---------+ + + Magnesium (05/31/2015 1:24 PM PDT) + + + + + + | Component | Value | Ref Range | Performed | Pathologist | | | | | At | Signature | + + + + + + | Magnesium | 2.1Comment: Testing | 1.7 - 2.4 mg/dL | EXTERNAL | | | | performed at [facility];[address] | | LAB | | | | [address];[place], [place] | | | | | | [address] | | | | + + + [...] + +---------+ + + External Lab: CBC (05/31/2015 4:15 AM PDT) + + + + + + | Component | Value | Ref Range | Performed | Pathologist | | | | | At | Signature | + + + + + + | WBC | 6.21Comment: Testing | 3.80 - 11.00 | EXTERNAL | | | | performed at [facility], [address] | K/uL | LAB | | | | [address], | | | | | | [place] [address] | | | | + + + + + + | Non- | 3.20 (L)Comment: Testing | 4.20 - 5.70 | EXTERNAL | | | Red Blood | performed at [facility], [address] | M/uL | LAB | | | Cells | [address], | | | | | Counted | [place] [address] | | | | + + + + + + | Hemoglobin | 8.9 (L)Comment: Testing | 13.2 - 17.0 | EXTERNAL | | | | performed at [facility], [address] | g/dL | LAB | | | | [address], | | | | | | [place] [address] | | | | + + + + + + | Hematocrit, | 27.2 (L)Comment: Testing | 39.0 - 50.0 % | EXTERNAL | | | POC | performed at [facility], [address] | | LAB | | | | [address], | | | | | | [place] [address] | | | | + + + + + + | MCV | 85.1Comment: Testing | 80.0 - 100.0 fl | EXTERNAL | | | | performed at [facility], [address] | | LAB | | | | [address], | | | | | | [place] [address] | | | | + + + + + + | MCH | 27.7Comment: Testing | 27.0 - 34.0 pg | EXTERNAL | | | | performed at [facility], [address] | | LAB | | | | [address], | | | | | | [place] [address] | | | | + + + + + + | MCHC | 32.6Comment: Testing | 32.0 - 35.5 | EXTERNAL | | | | performed at [facility], [address] | g/dL | LAB | | | | [address], | | | | | | [place] [address] | | | | + + + + + + | RDW-CV | 49.0Comment: Testing | 37 - 53 fl | EXTERNAL | | | | performed at [facility], [address] | | LAB | | | | [address], | | | | | | [place] [address] | | | | + + + + + + | Platelet | 103 (L)Comment: Testing | 150 - 400 K/uL | EXTERNAL | | | Count | performed at [facility], [address] | | LAB | | | Plasma | [address], | | | | | | [place] [address] | | | | + + + + + + | MPV | 9.1Comment: Testing | fl | EXTERNAL | | | | performed at [facility], [address] | | LAB | | | | [address], | | | | | | [place] [address] | | | | + + + + + + | Differentia | AUTOMATEDComment: | | EXTERNAL | | | l Type | Testing performed at | | LAB | | | | [facility], [address] | | | | | | [place] | | | | | | [address] | | | | + + + + + + | % Segmented | 70.80Comment: Testing | % | EXTERNAL | | | | performed at [facility], [address] | | LAB | | | Neutrophils | [address], | | | | | | [place] [address] | | | | + + + + + + | % | 19.56Comment: Testing | % | EXTERNAL | | | Lymphocytes | performed at [facility], [address] | | LAB | | | | [address], | | | | | | [place] [address] | | | | + + + + + + | % Monocytes | 8.15Comment: Testing | % | EXTERNAL | | | | performed at [facility], [address] | | LAB | | | | [address], | | | | | | [place] [address] | | | | + + + + + + | % | 1.12Comment: Testing | % | EXTERNAL | | | Eosinophils | performed at [facility], [address] | | LAB | | | | [address], | | | | | | [place] [address] | | | | + + + + + + | % Basophils | 0.37Comment: Testing | % | EXTERNAL | | | | performed at [facility], [address] | | LAB | | | | [address], | | | | | | [place] [address] | | | | + + + + + + | Absolute | 4.40Comment: Testing | 1.90 - 7.40 | EXTERNAL | | | Segmented | performed at [facility], [address] | K/uL | LAB | | | Neutrophils | [address], | | | | | | [place] [address] | | | | + + + + + + | Absolute | 1.22Comment: Testing | 1.00 - 3.90 | EXTERNAL | | | Lymphocytes | performed at [facility], [address] | K/uL | LAB | | | | [address], | | | | | | [place] [address] | | | | + + + + + + | Absolute | 0.51Comment: Testing | 0.00 - 0.80 | EXTERNAL | | | Monocytes | performed at [facility], [address] | K/uL | LAB | | | | [address], | | | | | | [place] [address] | | | | + + + + + + | Absolute | 0.07Comment: Testing | 0.00 - 0.50 | EXTERNAL | | | Eosinophils | performed at [facility], [address] | K/uL | LAB | | | | [address], | | | | | | [place] [address] | | | | + + + + + + | Absolute | 0.02Comment: Testing | 0.00 - 0.10 | EXTERNAL | | | Basophils | performed at [facility], [address] | K/uL | LAB | | | | [address], | | | | | | [place] [address] | | | | + + + + + + + + | Specimen | + + | Blood specimen | | (specimen) | + + + +---------+ + + | Performing | Address | City/State/Zipcode | Phone Number | | Organization | | | | + +---------+ + + | EXTERNAL LAB | | | | + +---------+ + + Phosphorus (05/31/2015 4:15 AM PDT) + + + + + [...] | | | | | [place] [address] | | | | + + + + + + + + | Specimen | + + | Blood specimen | | (specimen) | + + + +---------+ + + | Performing | Address | City/State/Zipcode | Phone Number | | Organization | | | | + +---------+ + + | EXTERNAL LAB | | | | + +---------+ + + Magnesium (05/31/2015 4:15 AM PDT) + + + + + + | Component | Value | Ref Range | Performed | Pathologist | | | | | At | Signature | + + + + + + | Magnesium | 2.0Comment: Testing | 1.7 - 2.4 mg/dL | EXTERNAL | | | | performed at [facility], [address] | | LAB | | | | [address], | | | | | | [place] [address] | | | | + + + [...] + +---------+ + + Basic Metabolic Panel (05/31/2015 4:15 AM PDT) + + + + + [...] | | | | | [place] [address] | | | | + + + + + + | K | 3.8Comment: Testing | 3.5 - 4.9 | EXTERNAL | | | | performed at [facility], [address] | mmol/L | LAB | | | | [address], | | | | | | [place] [address] | | | | + + + + + + | Cl | 106Comment: Testing | 99 - 109 mmol/L | EXTERNAL | | | | performed at [facility], [address] | | LAB | | | | [address], | | | | | | [place] [address] | | | | + + + + + + | CO2 | 27Comment: Testing | 23 - 32 mmol/L | EXTERNAL | | | | performed at [facility], [address] | | LAB | | | | [address], | | | | | | [place] [address] | | | | + + + + + + | Anion Gap | 7Comment: Testing | 5 - 20 mmol/L | EXTERNAL | | | | performed at [facility], [address] | | LAB | | | | [address], | | | | | | [place] [address] | | | | + + + + + + | Glucose, | 99Comment: Testing | 65 - 99 mg/dL | EXTERNAL | | | Fasting | performed at [facility], [address] | | LAB | | | | [address], | | | | | | [place] [address] | | | | + + + + + + | BUN | 4 (L)Comment: Testing | 8 - 25 mg/dL | EXTERNAL | | | | performed at [facility], [address] | | LAB | | | | [address], | | | | | | [place] [address] | | | | + + + + + + | Creatinine | 0.48 (L)Comment: Testing | 0.70 - 1.30 | EXTERNAL | | | | performed at [facility], [address] | mg/dL | LAB | | | | [address], | | | | | | [place] [address] | | | | + + + + + + | BUN/Creatin | 8Comment: Testing | | EXTERNAL | | | ine Ratio | performed at [facility], [address] | | LAB | | | | [address], | | | | | | [place] [address] | | | | + + + + + + | Calcium | 8.3 (L)Comment: Testing | 8.5 - 10.5 | EXTERNAL | | | | performed at [facility], [address] | mg/dL | LAB | | | | [facility], | | | | | | [place] [address] | | | | + + + [...] W | | | | | | [facility], | | | | | | [place] [address] | | | | + + + + + + + + | Specimen | + + | Blood specimen | | (specimen) | + + + +---------+ + + | Performing | Address | City/State/Zipcode | Phone Number | | Organization | | | | + +---------+ + + | EXTERNAL LAB | | | | + +---------+ + + Potassium (05/30/2015 9:56 PM PDT) + + + + + + | Component | Value | Ref Range | Performed | Pathologist | | | | | At | Signature | + + + + + + | K | 4.3Comment: Testing | 3.5 - 4.9 | EXTERNAL | | | | performed at [facility];[address] | mmol/L | LAB | | | | [address];[place] | | | | | | [address] | | | | + + + + + + + + | Specimen | + + | Blood specimen | | (specimen) | + + + +---------+ + + | Performing | Address | City/State/Zipcode | Phone Number | | Organization | | | | + +---------+ + + | EXTERNAL LAB | | | | + +---------+ + + Phosphorus (05/30/2015 9:56 PM PDT) + + + + + + | Component | Value | Ref Range | Performed | Pathologist | | | | | At | Signature | + + + + + + | PHOSPHORUS | 2.0 (L)Comment: Testing | 2.3 - 4.8 mg/dL | EXTERNAL | | | | performed at [facility];[address] | | LAB | | | | [address];[place], [place] | | | | | | [address] | | | | + + + + + + + + | Specimen | + + | Blood specimen | | (specimen) | + + + +---------+ + + | Performing | Address | City/State/Zipcode | Phone Number | | Organization | | | | + +---------+ + + | EXTERNAL LAB | | | | + +---------+ + + Magnesium (05/30/2015 9:56 PM PDT) + + + + + + | Component | Value | Ref Range | Performed | Pathologist | | | | | At | Signature | + + + + + + | Magnesium | 1.9Comment: Testing | 1.7 - 2.4 mg/dL | EXTERNAL | | | | performed at [facility] | | LAB | | | | [facility];[place], [place] | | | | | | [address] | | | | + + + [...] +---------+ + + CT Head wo Contrast (05/30/2015 5:55 AM PDT) + + | Specimen | + + | | + + + + + | Impressions | Performed At | + + + | 1. Significant decrease in size of right holohemispheric subdural | | | collection as well as intracranial pneumocephalus and subgaleal fluid | | | and air compared to 05/29/2015 with interval subdural drain | | | placement. 2. Improved nlluj-oo-cwox midline shift. RADIA | | | Electronically signed by Joshua Rivera MD on May 30 2015 10:35AM | | | Referring Provider Line: [phone] ID: [id number] | | + + + + + + | Narrative | Performed At | + + + | EXAM: CT HEAD WITHOUT CONTRAST EXAM DATE: 05/30/2015 05:57 AM. | | | CLINICAL HISTORY: Postop. Status post cranioplasty. | | | Pneumocephalus. Followup. COMPARISON: 05/29/2015. 03/08/2015. | | | TECHNIQUE: Multiaxial CT images were obtained from the foramen magnum | | | to the vertex. IV contrast: None. Reformats: None. FINDINGS: | | | Parenchyma: Parenchymal volume loss with periventricular regions of | | | low-attenuation is seen. No evidence of an acute vascular insult. | | | Extraaxial Spaces: Significant decrease in size of right | | | holohemispheric extra-axial fluid collection. Residual right | | | extra-axial mixed attenuation fluid remaining with thickness overlying | | | the right temporal and parietal lobes up to 7 mm. Right subdural | | | drain is seen. Intracranial pneumocephalus has improved. There is | | | isgms-xh-nbgn midline shift measuring at least 5 mm which is improved. | | | Ventricles: Ventricles are mildly prominent although the right | | | lateral ventricle is effaced. Sinuses: Paranasal sinuses and | | | mastoid air cells are clear. No air-fluid levels. Bones: Changes | | | are again seen from right frontotemporoparietal craniotomy. Other: | | | Right subgaleal edema and fluid level has improved with residual | | | subgaleal air. | | + + + + + | Procedure Note | + + | Rosailo, Marlon Conversion - 05/05/2019 12:20 AM PDT EXAM:CT HEAD WITHOUT CONTRAST EXAM | | DATE: 05/30/2015 05:57 AM. CLINICAL HISTORY: Postop. Status post cranioplasty. | | Pneumocephalus. Followup. COMPARISON: 05/29/2015. 03/08/2015. TECHNIQUE: Multiaxial CT | | images were obtained from the foramen magnum to the vertex. IV contrast: None. | | Reformats: None. FINDINGS:Parenchyma: Parenchymal volume loss with periventricular | | regions of low-attenuation is seen. No evidence of an acute vascular insult. Extraaxial | | Spaces: Significant decrease in size of right holohemispheric extra-axial fluid | | collection. Residual right extra-axial mixed attenuation fluid remaining with thickness | | overlying the right temporal and parietal lobes up to 7 mm. Right subdural drain is | | seen. Intracranial pneumocephalus has improved. There is yapol-io-odio midline shift | | measuring at least 5 mm which is improved. Ventricles: Ventricles are mildly prominent | | although the right lateral ventricle is effaced. Sinuses: Paranasal sinuses and mastoid | | air cells are clear. No air-fluid levels. Bones: Changes are again seen from right | | frontotemporoparietal craniotomy. Other: Right subgaleal edema and fluid level has | | improved with residual subgaleal air. IMPRESSION: 1. Significant decrease in size of | | right holohemispheric subdural collection as well as intracranial pneumocephalus and | | subgaleal fluid and air compared to 05/29/2015 with interval subdural drain placement.2. | | Improved pxfpc-jf-mmlj midline shift. RADIA Electronically signed by Joshua Rivera MD | | on May 30 2015 10:35AM Referring Provider Line: [phone] ID: [id number] | | | |Sinuses: Paranasal sinuses and mastoid air cells are clear. No air-fluid levels. | | | |Bones: Changes are again seen from right frontotemporoparietal craniotomy. | | | |Other: Right subgaleal edema and fluid level has improved with residual subgaleal air. | | | |IMPRESSION: | | | |1. Significant decrease in size of right holohemispheric subdural collection as well as int racranial pneumocephalus and subgaleal fluid and air compared to 05/29/2015 with interval molina bdural drain placement. | |2. Improved uqeav-mn-ufzy midline shift. | | | |RADIA | | | | Electronically signed by Joshua Rivera MD on May 30 2015 10:35AM Referring Provider Line: [phone] ID: [id number] | + + PTT (05/30/2015 2:59 AM PDT) + + + + + + | Component | Value | Ref Range | Performed | Pathologist | | | | | At | Signature | + + + + + + | aPTT, | 33 (H)Comment: Testing | 23 - 32 seconds | EXTERNAL | | | Patient | performed at [facility];[address] | | LAB | | | | [address];[place], [place] | | | | | | [address] | | | | + + + + + + + + | Specimen | + + | Blood specimen | | (specimen) | + + + +---------+ + + | Performing | Address | City/State/Zipcode | Phone Number | | Organization | | | | + +---------+ + + | EXTERNAL LAB | | | | + +---------+ + + Protime INR (05/30/2015 2:59 AM PDT) + + + + + [...] | | | | | performed at [facility] | | | | | | [facility];[place], [place] | | | | | | [address] | | | | + + + [...] + +---------+ + + External Lab: CBC (05/30/2015 2:59 AM PDT) + + + + + + | Component | Value | Ref Range | Performed | Pathologist | | | | | At | Signature | + + + + + + | WBC | 7.34Comment: Testing | 3.80 - 11.00 | EXTERNAL | | | | performed at [facility], [address] | K/uL | LAB | | | | [address], | | | | | | [place] [address] | | | | + + + + + + | Non- | 3.24 (L)Comment: Testing | 4.20 - 5.70 | EXTERNAL | | | Red Blood | performed at [facility], [address] | M/uL | LAB | | | Cells | [address], | | | | | Counted | [place] [address] | | | | + + + + + + | Hemoglobin | 8.8 (L)Comment: Testing | 13.2 - 17.0 | EXTERNAL | | | | performed at [facility], [address] | g/dL | LAB | | | | [address], | | | | | | [place] [address] | | | | + + + + + + | Hematocrit, | 27.5 (L)Comment: Testing | 39.0 - 50.0 % | EXTERNAL | | | POC | performed at [facility], [address] | | LAB | | | | [address], | | | | | | [place] [address] | | | | + + + + + + | MCV | 85.1Comment: Testing | 80.0 - 100.0 fl | EXTERNAL | | | | performed at [facility], [address] | | LAB | | | | [address], | | | | | | [place] [address] | | | | + + + + + + | MCH | 27.3Comment: Testing | 27.0 - 34.0 pg | EXTERNAL | | | | performed at [facility], [address] | | LAB | | | | [address], | | | | | | [place] [address] | | | | + + + + + + | MCHC | 32.1Comment: Testing | 32.0 - 35.5 | EXTERNAL | | | | performed at [facility], [address] | g/dL | LAB | | | | [address], | | | | | | [place] [address] | | | | + + + + + + | RDW-CV | 47.3Comment: Testing | 37 - 53 fl | EXTERNAL | | | | performed at [facility], [address] | | LAB | | | | [address], | | | | | | [place] [address] | | | | + + + + + + | Platelet | 117 (L)Comment: Testing | 150 - 400 K/uL | EXTERNAL | | | Count | performed at [facility], [address] | | LAB | | | Plasma | [address], | | | | | | [place] [address] | | | | + + + + + + | MPV | 9.7Comment: Testing | fl | EXTERNAL | | | | performed at [facility], [address] | | LAB | | | | [address], | | | | | | [place] [address] | | | | + + + + + + | Differentia | AUTOMATEDComment: | | EXTERNAL | | | l Type | Testing performed at | | LAB | | | | [facility], [address] | | | | | | [place] | | | | | | [address] | | | | + + + + + + | % Segmented | 72.39Comment: Testing | % | EXTERNAL | | | | performed at [facility], [address] | | LAB | | | Neutrophils | [address], | | | | | | [place] [address] | | | | + + + + + + | % | 16.63Comment: Testing | % | EXTERNAL | | | Lymphocytes | performed at [facility], [address] | | LAB | | | | [address], | | | | | | [place] [address] | | | | + + + + + + | % Monocytes | 10.39Comment: Testing | % | EXTERNAL | | | | performed at [facility], [address] | | LAB | | | | [address], | | | | | | [place] [address] | | | | + + + + + + | % | 0.31Comment: Testing | % | EXTERNAL | | | Eosinophils | performed at [facility], [address] | | LAB | | | | [address], | | | | | | [place] [address] | | | | + + + + + + | % Basophils | 0.28Comment: Testing | % | EXTERNAL | | | | performed at [facility], [address] | | LAB | | | | [address], | | | | | | [place] [address] | | | | + + + + + + | Absolute | 5.32Comment: Testing | 1.90 - 7.40 | EXTERNAL | | | Segmented | performed at [facility], [address] | K/uL | LAB | | | Neutrophils | [address], | | | | | | [place] [address] | | | | + + + + + + | Absolute | 1.22Comment: Testing | 1.00 - 3.90 | EXTERNAL | | | Lymphocytes | performed at [facility], [address] | K/uL | LAB | | | | [address], | | | | | | [place] [address] | | | | + + + + + + | Absolute | 0.76Comment: Testing | 0.00 - 0.80 | EXTERNAL | | | Monocytes | performed at [facility], [address] | K/uL | LAB | | | | [address], | | | | | | [place] [address] | | | | + + + + + + | Absolute | 0.02Comment: Testing | 0.00 - 0.50 | EXTERNAL | | | Eosinophils | performed at [facility], [address] | K/uL | LAB | | | | [address], | | | | | | [place] [address] | | | | + + + + + + | Absolute | 0.02Comment: Testing | 0.00 - 0.10 | EXTERNAL | | | Basophils | performed at [facility], [address] | K/uL | LAB | | | | [address], | | | | | | [place] [address] | | | | + + + + + + + + | Specimen | + + | Blood specimen | | (specimen) | + + + +---------+ + + | Performing | Address | City/State/Zipcode | Phone Number | | Organization | | | | + +---------+ + + | EXTERNAL LAB | | | | + +---------+ + + Phosphorus (05/30/2015 2:59 AM PDT) + + + + + + | Component | Value | Ref Range | Performed | Pathologist | | | | | At | Signature | + + + + + + | PHOSPHORUS | 2.8Comment: Testing | 2.3 - 4.8 mg/dL | EXTERNAL | | | | performed at [facility], [address] | | LAB | | | | [address], | | | | | | [place] [address] | | | | + + + + + + + + | Specimen | + + | Blood specimen | | (specimen) | + + + +---------+ + + | Performing | Address | City/State/Zipcode | Phone Number | | Organization | | | | + +---------+ + + | EXTERNAL LAB | | | | + +---------+ + + Magnesium (05/30/2015 2:59 AM PDT) + + + + + + | Component | Value | Ref Range | Performed | Pathologist | | | | | At | Signature | + + + + + + | Magnesium | 1.8Comment: Testing | 1.7 - 2.4 mg/dL | EXTERNAL | | | | performed at [facility], [address] | | LAB | | | | [address], | | | | | | [place] [address] | | | | + + + [...] + +---------+ + + Basic Metabolic Panel (05/30/2015 2:59 AM PDT) + + + + + [...] | | | | | [place] [address] | | | | + + + + + + | K | 3.7Comment: Testing | 3.5 - 4.9 | EXTERNAL | | | | performed at [facility], [address] | mmol/L | LAB | | | | [address], | | | | | | [place] [address] | | | | + + + + + + | Cl | 106Comment: Testing | 99 - 109 mmol/L | EXTERNAL | | | | performed at [facility], [address] | | LAB | | | | [address], | | | | | | [place] [address] | | | | + + + + + + | CO2 | 27Comment: Testing | 23 - 32 mmol/L | EXTERNAL | | | | performed at [facility], [address] | | LAB | | | | [address], | | | | | | [place] [address] | | | | + + + + + + | Anion Gap | 6Comment: Testing | 5 - 20 mmol/L | EXTERNAL | | | | performed at [facility], [address] | | LAB | | | | [address], | | | | | | [place] [address] | | | | + + + + + + | Glucose, | 106 (H)Comment: Testing | 65 - 99 mg/dL | EXTERNAL | | | Fasting | performed at [facility], [address] | | LAB | | | | [address], | | | | | | [place] [address] | | | | + + + + + + | BUN | 5 (L)Comment: Testing | 8 - 25 mg/dL | EXTERNAL | | | | performed at [facility], [address] | | LAB | | | | [address], | | | | | | [place] [address] | | | | + + + + + + | Creatinine | 0.50 (L)Comment: Testing | 0.70 - 1.30 | EXTERNAL | | | | performed at [facility], [address] | mg/dL | LAB | | | | [address], | | | | | | [place] [address] | | | | + + + + + + | BUN/Creatin | 10Comment: Testing | | EXTERNAL | | | ine Ratio | performed at [facility], [address] | | LAB | | | | [address], | | | | | | [place] [address] | | | | + + + + + + | Calcium | 8.1 (L)Comment: Testing | 8.5 - 10.5 | EXTERNAL | | | | performed at [facility], [address] | mg/dL | LAB | | | | [address], | | | | | | [place] [address] | | | | + + + [...] [address], | | | | | | [place] [address] | | | | + + + [...] +---------+ + + XR Chest 1 Vw (05/29/2015 5:36 PM PDT) + + | Specimen | + + | | + + + + + | Impressions | Performed At | + + + | 1. No acute cardiopulmonary process. | | + + + + + + | Narrative | Performed At | + + + | TONY FORTUNE XR CHEST 1 VIEW HISTORY: 54 years. Male. | | | Endotracheal tube placement. TECHNIQUE: Single portable anterior | | | view of the chest was obtained. COMPARISON: 05/24/2015 | | | FINDINGS: Endotracheal tube tip located approximately 4.3 cm above | | | the lacey. Nasogastric tube seen coursing below the diaphragm. No | | | pulmonary vascular congestion. Heart is normal in size. No | | | pneumothorax. No focal airspace disease or pleural effusion. | | + + + + + | Procedure Note | + + | Rosalio, Rad Conversion - 05/05/2019 12:20 AM PDT TONY MENENDEZ CHEST 1 VIEW | | HISTORY:54 years. Male. Endotracheal tube placement. TECHNIQUE:Single portable anterior | | view of the chest was obtained. COMPARISON:05/24/2015 FINDINGS:Endotracheal tube tip | | located approximately 4.3 cm above the lacey. Nasogastric tube seen coursing below the | | diaphragm. No pulmonary vascular congestion. Heart is normal in size. No pneumothorax. | | No focal airspace disease or pleural effusion. IMPRESSION: 1. No acute cardiopulmonary | | process. | |Single portable anterior view of the chest was obtained. | | | |COMPARISON: | |05/24/2015 | | | |FINDINGS: | |Endotracheal tube tip located approximately 4.3 cm above the lacey. Nasogastric tube seen coursing below the diaphragm. No pulmonary vascular congestion. Heart is normal in size. No pneumothorax. No focal airspace disease or pleural effusion. | | | |IMPRESSION: | |1. No acute cardiopulmonary process. | | | | | + + Platelet Count (05/29/2015 5:31 PM PDT) + + + + + + | Component | Value | Ref Range | Performed | Pathologist | | | | | At | Signature | + + + + + + | Platelet | 151Comment: Testing | 150 - 400 K/uL | EXTERNAL | | | Count | performed at [facility];[address] | | LAB | | | Plasma | [address];[place], [place] | | | | | | [address] | | | | + + + + + + + + | Specimen | + + | | + + + +---------+ + + | Performing | Address | City/State/Zipcode | Phone Number | | Organization | | | | + +---------+ + + | EXTERNAL LAB | | | | + +---------+ + + CT Head wo Contrast (05/29/2015 5:22 PM PDT) + + | Specimen | + + | | + + + + + | Impressions | Performed At | + + + | 1. Improving larger right subdural hematoma with approximately 1 | | | cm of midline shift to the left side which measured 1.8 cm previously. | | | 2. Postsurgical change on the right side with large right | | | craniotomy and mild improving pneumocephalus. Electronically | | | signed by Naeem Young DO on 05/29/2015 5:30 PM | | + + + + + + | Narrative | Performed At | + + + | TONY FORTUNE XR CT PORTABLE HEAD UNENHANCED HISTORY: 54 | | | years. Male. Head deformity and subdural hematoma TECHNIQUE: | | | Portable CT examination the head was performed without contrast. | | | COMPARISON: 05/29/2015 FINDINGS: Postsurgical change with a large | | | right-sided craniotomy. Large right subdural hematoma measuring 1.7 cm | | | in thickness that is significantly proved from the previous | | | examination which measured 2.5 cm. Midline shift to the left side | | | measuring 1 cm which measured 1.8 cm previously. Mild enlargement of | | | the antrum and temporal horn of left lateral ventricle that has | | | mildly improved since the previous exam. Mild improving | | | pneumocephalus. Right subdural drainage catheter that appears in | | | appropriate position. | | + + + + + | Procedure Note | + + | Rosalio, Rad Conversion - 05/05/2019 12:20 AM PDT TONY MENENDEZ CT PORTABLE HEAD | | UNENHANCED HISTORY:54 years. Male. Head deformity and subdural hematoma | | TECHNIQUE:Portable CT examination the head was performed without contrast. | | COMPARISON:05/29/2015 FINDINGS:Postsurgical change with a large right-sided craniotomy. | | Large right subdural hematoma measuring 1.7 cm in thickness that is significantly proved | | from the previous examination which measured 2.5 cm. Midline shift to the left side | | measuring 1 cm which measured 1.8 cm previously. Mild enlargement of the antrum and | | temporal horn of left lateral ventricle that has mildly improved since the previous | | exam. Mild improving pneumocephalus. Right subdural drainage catheter that appears in | | appropriate position. IMPRESSION: 1. Improving larger right subdural hematoma with | | approximately 1 cm of midline shift to the left side which measured 1.8 cm previously.2. | | Postsurgical change on the right side with large right craniotomy and mild improving | | pneumocephalus. | |Postsurgical change with a large right-sided craniotomy. Large right subdural hematoma alcon uring 1.7 cm in thickness that is significantly proved from the previous examination which m easured 2.5 cm. Midline shift to the left side measuring 1 cm which | |measured 1.8 cm previously. Mild enlargement of the antrum and temporal horn of left latera l ventricle that has mildly improved since the previous exam. Mild improving pneumocephalus. Right subdural drainage catheter that | |appears in appropriate position. | | | |IMPRESSION: | |1. Improving larger right subdural hematoma with approximately 1 cm of midline shift to th e left side which measured 1.8 cm previously. | |2. Postsurgical change on the right side with large right craniotomy and mild improving pn eumocephalus. | | | | | + + PTT (05/29/2015 4:07 PM PDT) + + + + + + | Component | Value | Ref Range | Performed | Pathologist | | | | | At | Signature | + + + + + + | aPTT, | 32Comment: Testing | 23 - 32 seconds | EXTERNAL | | | Patient | performed at [facility];[address] | | LAB | | | | [address];[place], [place] | | | | | | [address] | | | | + + + + + + + + | Specimen | + + | Blood specimen | | (specimen) | + + + +---------+ + + | Performing | Address | City/State/Zipcode | Phone Number | | Organization | | | | + +---------+ + + | EXTERNAL LAB | | | | + +---------+ + + Protime INR (05/29/2015 4:07 PM PDT) + + + + + [...] | | | | | performed at [facility];[address] | | | | | | [facility];[place], [place] | | | | | | [address] | | | | + + + + + + + + | Specimen | + + | Blood specimen | | (specimen) | + + + +---------+ + + | Performing | Address | City/State/Zipcode | Phone Number | | Organization | | | | + +---------+ + + | EXTERNAL LAB | | | | + +---------+ + + Fibrinogen (05/29/2015 4:07 PM PDT) + + + + + + | Component | Value | Ref Range | Performed | Pathologist | | | | | At | Signature | + + + + + + | Fibrinogen | 227Comment: Testing | 200 - 450 mg/dL | EXTERNAL | | | | performed at [facility];[address] | | LAB | | | | [address];[place] | | | | | | [address] | | | | + + + + + + + + | Specimen | + + | Blood specimen | | (specimen) | + + + +---------+ + + | Performing | Address | City/State/Zipcode | Phone Number | | Organization | | | | + +---------+ + + | EXTERNAL LAB | | | | + +---------+ + + D-Dimer (05/29/2015 4:07 PM PDT) + + + + + + | Component | Value | Ref Range | Performed | Pathologist | | | | | At | Signature | + + + + + + | D-DIMER, | 0.82 (H)Comment: D Dimer | 0.19 - 0.50 | EXTERNAL | | | MANUAL | results less than 0.50 | mg/L FEU | LAB | | | | mg/L FEU may rule out | | | | | | DVT and PE. However, | | | | | | all laboratory results | | | | | | should be interpreted in | | | | | | the context of all | | | | | | available clinical, | | | | | | radiologic and | | | | | | laboratory | | | | | | information.Testing | | | | | | performed at [facility];[address] | | | | | | [facility];[place], [place] | | | | | | [address] | | | | + + + [...] +---------+ + + POC BRUNO CG8, Arterial (05/29/2015 3:27 PM PDT) + + + + + + | Component | Value | Ref Range | Performed | Pathologist | | | | | At | Signature | + + + + + + | PH ART | 7.457 (H)Comment: | 7.350 - 7.450 | EXTERNAL | | | | Testing performed at | | LAB | | | | [facility];[address] | | | | | | [address];[place] [address] | | | | + + + + + + | PCO2 ART | 37Comment: Testing | 35 - 45 mmHg | EXTERNAL | | | | performed at [facility];[address] | | LAB | | | | [address];[place] | | | | | | [address] | | | | + + + + + + | PO2 ART | 208 (H)Comment: Testing | 80 - 105 mmHg | EXTERNAL | | | | performed at [facility];[address] | | LAB | | | | [address];[place] | | | | | | [address] | | | | + + + + + + | HCO3 ART | 26Comment: Testing | 22 - 26 mmol/L | EXTERNAL | | | | performed at [facility];[address] | | LAB | | | | [address];[place] | | | | | | [address] | | | | + + + + + + | POC | 27Comment: Testing | 23 - 27 mEq/L | EXTERNAL | | | APPEARANCE | performed at [facility];[address] | | LAB | | | [address]A | [address];[place] | | | | | | [address] | | | | + + + + + + | Base | 2Comment: Testing | 0 - 3 mEq/L | EXTERNAL | | | Excess, | performed at [facility];[address] | | LAB | | | Arterial | [address];[place] | | | | | | [address] | | | | + + + + + + | O2 SAT ART | 100 (H)Comment: Testing | 95 - 98 % | EXTERNAL | | | | performed at [facility];[address] | | LAB | | | | [address];[place] | | | | | | [address] | | | | + + + + + + | Sodium, POC | 134 (L)Comment: Testing | 135 - 145 mEq/L | EXTERNAL | | | | performed at [facility];[address] | | LAB | | | | [address];[place] | | | | | | [address] | | | | + + + + + + | Potassium, | 3.6Comment: Testing | 3.5 - 5.0 mEq/L | EXTERNAL | | | POC | performed at [facility];[address] | | LAB | | | | [address];[place] | | | | | | [address] | | | | + + + + + + | Ionized | 1.09 (L)Comment: Testing | 1.12 - 1.32 | EXTERNAL | | | Calcium, | performed at [facility];[address] | mmol/L | LAB | | | POC | [address];[place] | | | | | | [address] | | | | + + + + + + | Glucose, | 191 (H)Comment: Testing | 65 - 99 mg/dL | EXTERNAL | | | POC | performed at [facility];[address] | | LAB | | | | [address];[place] | | | | | | [address] | | | | + + + + + + | Hematocrit, | 35 (L)Comment: Testing | 40.0 - 50.0 % | EXTERNAL | | | POC | performed at [facility];[address] | | LAB | | | | [address];[place] | | | | | | [address] | | | | + + + + + + | Hemoglobin, | 11.9 (L)Comment: Testing | 13.7 - 16.7 | EXTERNAL | | | POC | performed at [facility];[address] | g/dL | LAB | | | | [address];[place] | | | | | | [address] | | | | + + + + + + + + | Specimen | + + | | + + + +---------+ + + | Performing | Address | City/State/Zipcode | Phone Number | | Organization | | | | + +---------+ + + | EXTERNAL LAB | | | | + +---------+ + + CT Head wo Contrast (05/29/2015 9:47 AM PDT) + + | Specimen | + + | | + + + + + | Impressions | Performed At | + + + | 1. Large subdural hemorrhage beneath the right replaced craniotomy | | | measuring 13.7 x 2.6 cm axial by approximately 8 cm superoinferior | | | dimension, communicating anteriorly with the subcutaneous tissues, | | | with subcutaneous hemorrhage superficial to the craniotomy. 2. | | | Midline shift from right to left has increased from 8 mm previous to | | | the craniotomy replacement to 16 mm presently. These findings were | | | discussed over the phone with Dr. Betancur at 10:00 AM date of study. | | | 3. Perhaps subtle right uncal herniation, but with unchanged mild | | | chronic displacement of the brainstem towards the right. Brainstem | | | cisterns otherwise unremarkable. 4. Asymmetric prominence left | | | lateral ventricle. Early trapping cannot be excluded. | | | | | + + + + + + | Narrative | Performed At | + + + | HISTORY: Status post cranioplasty. Head deformity. COMPARISON: | | | 03/08/15. 11/22/14. TECHNIQUE: 5-mm axial noncontrast CT images | | | of the brain were acquired from the foramen magnum through the cranial | | | vertex. FINDINGS: There has been interval replacement of the | | | previous large right frontoparietal craniectomy. Large heterogeneous | | | acute subdural hemorrhage is noted beneath the replaced right | | | craniotomy, measuring 26 mm in thickness x 137 mm AP dimension, | | | extending entirely throughout the craniotomy site, with anterior air | | | and communication into the right temporal subcutaneous tissues with | | | hemorrhage and air measuring up to 13 mm in thickness x 92 mm AP | | | dimension. There is asymmetric prominence of the right uncus | | | sequence 2 image 12, slightly more prominent. Early uncal herniation | | | not excluded. Despite this, there is only minimal shift of the midline | | | structures the brainstem towards the left chronically, unchanged. | | | Increased mild prominence of the temporal and occipital horns of the | | | left lateral ventricle. Early trapping of the left lateral ventricle | | | not be excluded. | | + + + + + | Procedure Note | + + | Rosalio, Rad Conversion - 05/05/2019 12:20 AM PDT HISTORY:Status post cranioplasty. Head | | deformity. COMPARISON:03/08/15. 11/22/14. TECHNIQUE:5-mm axial noncontrast CT images of | | the brain were acquired from the foramen magnum through the cranial vertex. | | FINDINGS:There has been interval replacement of the previous large right frontoparietal | | craniectomy. Large heterogeneous acute subdural hemorrhage is noted beneath the replaced | | right craniotomy, measuring 26 mm in thickness x 137 mm AP dimension, extending | | entirely throughout the craniotomy site, with anterior air and communication into the | | right temporal subcutaneous tissues with hemorrhage and air measuring up to 13 mm in | | thickness x 92 mm AP dimension. There is asymmetric prominence of the right uncus | | sequence 2 image 12, slightly more prominent. Early uncal herniation not excluded. | | Despite this, there is only minimal shift of the midline structures the brainstem | | towards the left chronically, unchanged. Increased mild prominence of the temporal and | | occipital horns of the left lateral ventricle. Early trapping of the left lateral | | ventricle not be excluded. IMPRESSION: 1. Large subdural hemorrhage beneath the right | | replaced craniotomy measuring 13.7 x 2.6 cm axial by approximately 8 cm superoinferior | | dimension, communicating anteriorly with the subcutaneous tissues, with subcutaneous | | hemorrhage superficial to the craniotomy.2. Midline shift from right to left has | | increased from 8 mm previous to the craniotomy replacement to 16 mm presently. These | | findings were discussed over the phone with Dr. Betancur at 10:00 AM date of study.3. | | Perhaps subtle right uncal herniation, but with unchanged mild chronic displacement of | | the brainstem towards the right. Brainstem cisterns otherwise unremarkable.4. | | Asymmetric prominence left lateral ventricle. Early trapping cannot be excluded. | | | | | + + External Lab: CBC (05/29/2015 3:58 AM PDT) + + + + + + | Component | Value | Ref Range | Performed | Pathologist | | | | | At | Signature | + + + + + + | WBC | 9.09Comment: Testing | 3.80 - 11.00 | EXTERNAL | | | | performed at [facility], [address] | K/uL | LAB | | | | [address], | | | | | | [place] [address] | | | | + + + + + + | Non- | 4.00 (L)Comment: Testing | 4.20 - 5.70 | EXTERNAL | | | Red Blood | performed at [facility], [address] | M/uL | LAB | | | Cells | [address], | | | | | Counted | [place] [address] | | | | + + + + + + | Hemoglobin | 11.0 (L)Comment: Testing | 13.2 - 17.0 | EXTERNAL | | | | performed at [facility], [address] | g/dL | LAB | | | | [address], | | | | | | [place] [address] | | | | + + + + + + | Hematocrit, | 33.7 (L)Comment: Testing | 39.0 - 50.0 % | EXTERNAL | | | POC | performed at [facility], [address] | | LAB | | | | [address], | | | | | | [place] [address] | | | | + + + + + + | MCV | 84.3Comment: Testing | 80.0 - 100.0 fl | EXTERNAL | | | | performed at [facility], [address] | | LAB | | | | [address], | | | | | | [place] [address] | | | | + + + + + + | MCH | 27.6Comment: Testing | 27.0 - 34.0 pg | EXTERNAL | | | | performed at [facility], [address] | | LAB | | | | [address], | | | | | | [place] [address] | | | | + + + + + + | MCHC | 32.8Comment: Testing | 32.0 - 35.5 | EXTERNAL | | | | performed at [facility], [address] | g/dL | LAB | | | | [address], | | | | | | [place] [address] | | | | + + + + + + | RDW-CV | 45.1Comment: Testing | 37 - 53 fl | EXTERNAL | | | | performed at [facility], [address] | | LAB | | | | [address], | | | | | | [place] [address] | | | | + + + + + + | Platelet | 135 (L)Comment: Testing | 150 - 400 K/uL | EXTERNAL | | | Count | performed at [facility], [address] | | LAB | | | Plasma | [address], | | | | | | [place] [address] | | | | + + + + + + | MPV | 9.2Comment: Testing | fl | EXTERNAL | | | | performed at [facility], [address] | | LAB | | | | [address], | | | | | | [place] [address] | | | | + + + + + + | Differentia | AUTOMATEDComment: | | EXTERNAL | | | l Type | Testing performed at | | LAB | | | | [facility], [address] | | | | | | [place] | | | | | | [address] | | | | + + + + + + | % Segmented | 75.95Comment: Testing | % | EXTERNAL | | | | performed at [facility], [address] | | LAB | | | Neutrophils | [address], | | | | | | [place] [address] | | | | + + + + + + | % | 14.93Comment: Testing | % | EXTERNAL | | | Lymphocytes | performed at [facility], [address] | | LAB | | | | [address], | | | | | | [place] [address] | | | | + + + + + + | % Monocytes | 8.68Comment: Testing | % | EXTERNAL | | | | performed at [facility], [address] | | LAB | | | | [address], | | | | | | [place] [address] | | | | + + + + + + | % | 0.25Comment: Testing | % | EXTERNAL | | | Eosinophils | performed at [facility], [address] | | LAB | | | | [address], | | | | | | [place] [address] | | | | + + + + + + | % Basophils | 0.19Comment: Testing | % | EXTERNAL | | | | performed at [facility], [address] | | LAB | | | | [address], | | | | | | [place] [address] | | | | + + + + + + | Absolute | 6.90Comment: Testing | 1.90 - 7.40 | EXTERNAL | | | Segmented | performed at [facility], [address] | K/uL | LAB | | | Neutrophils | [address], | | | | | | [place] [address] | | | | + + + + + + | Absolute | 1.36Comment: Testing | 1.00 - 3.90 | EXTERNAL | | | Lymphocytes | performed at [facility], [address] | K/uL | LAB | | | | [address], | | | | | | [place] [address] | | | | + + + + + + | Absolute | 0.79Comment: Testing | 0.00 - 0.80 | EXTERNAL | | | Monocytes | performed at [facility], [address] | K/uL | LAB | | | | [address], | | | | | | [place] [address] | | | | + + + + + + | Absolute | 0.02Comment: Testing | 0.00 - 0.50 | EXTERNAL | | | Eosinophils | performed at [facility], [address] | K/uL | LAB | | | | [address], | | | | | | [place] [address] | | | | + + + + + + | Absolute | 0.02Comment: Testing | 0.00 - 0.10 | EXTERNAL | | | Basophils | performed at [facility], [address] | K/uL | LAB | | | | [address], | | | | | | [place] [address] | | | | + + + [...] + +---------+ + + Basic Metabolic Panel (05/29/2015 3:58 AM PDT) + + + + + [...] | | | | | [place] [address] | | | | + + + + + + | K | 4.1Comment: Testing | 3.5 - 4.9 | EXTERNAL | | | | performed at [facility], [address] | mmol/L | LAB | | | | [address], | | | | | | [place] [address] | | | | + + + + + + | Cl | 102Comment: Testing | 99 - 109 mmol/L | EXTERNAL | | | | performed at [facility], [address] | | LAB | | | | [address], | | | | | | [place] [address] | | | | + + + + + + | CO2 | 26Comment: Testing | 23 - 32 mmol/L | EXTERNAL | | | | performed at [facility], [address] | | LAB | | | | [address], | | | | | | [place] [address] | | | | + + + + + + | Anion Gap | 10Comment: Testing | 5 - 20 mmol/L | EXTERNAL | | | | performed at [facility], [address] | | LAB | | | | [address], | | | | | | [place] [address] | | | | + + + + + + | Glucose, | 109 (H)Comment: Testing | 65 - 99 mg/dL | EXTERNAL | | | Fasting | performed at [facility], [address] | | LAB | | | | [address], | | | | | | [place] [address] | | | | + + + + + + | BUN | 7 (L)Comment: Testing | 8 - 25 mg/dL | EXTERNAL | | | | performed at [facility], [address] | | LAB | | | | [address], | | | | | | [place] [address] | | | | + + + + + + | Creatinine | 0.62 (L)Comment: Testing | 0.70 - 1.30 | EXTERNAL | | | | performed at [facility], [address] | mg/dL | LAB | | | | [address], | | | | | | [place] [address] | | | | + + + + + + | BUN/Creatin | 11Comment: Testing | | EXTERNAL | | | ine Ratio | performed at [facility], [address] | | LAB | | | | [email or web address], | | | | | | [place] [address] | | | | + + + + + + | Calcium | 8.8Comment: Testing | 8.5 - 10.5 | EXTERNAL | | | | performed at [facility], [address] | mg/dL | LAB | | | | [address], | | | | | | [place] [address] | | | | + + + [...] | | | | | [place] [address] | | | | + + + + + + + + | Specimen | + + | Blood specimen | | (specimen) | + + + +---------+ + + | Performing | Address | City/State/Zipcode | Phone Number | | Organization | | | | + +---------+ + + | EXTERNAL LAB | | | | + +---------+ + + Urinalysis, Reflex Microscopic and/or Culture (05/28/2015 7:31 PM PDT) + + + + + + | Component | Value | Ref Range | Performed | Pathologist | | | | | At | Signature | + + + + + + | Color | YELLOWComment: Testing | | EXTERNAL | | | | performed at [facility], [address] | | LAB | | | | [address], | | | | | | [place] [address] | | | | + + + + + + | Clarity, | CLEARComment: Testing | | EXTERNAL | | | Urine | performed at [facility], [address] | | LAB | | | | [address], | | | | | | [place] [address] | | | | + + + + + + | Specific | 1.029Comment: Testing | 1.002 - 1.030 | EXTERNAL | | | [place], | performed at [facility], [address] | | LAB | | | Urine | [address], | | | | | | [place] [address] | | | | + + + + + + | Leukocyte | NEGATIVEComment: Testing | | EXTERNAL | | | Esterase, | performed at [facility], [address] | | LAB | | | Urine | [address], | | | | | | [place], [place] [address] | | | | + + + + + + | Nitrite, | NEGATIVEComment: Testing | | EXTERNAL | | | Urine | performed at [facility], [address] | | LAB | | | | [address], | | | | | | [place], [place] [address] | | | | + + + + + + | Urobilinoge | 1.0Comment: Testing | mg/dL | EXTERNAL | | | n, Urine | performed at [facility], [address] | | LAB | | | | [address], | | | | | | [place] [address] | | | | + + + + + + | Protein, | NEGATIVEComment: Testing | mg/dL | EXTERNAL | | | Urine | performed at [facility], [address] | | LAB | | | | [address], | | | | | | [place] [address] | | | | + + + + + + | pH, Urine | 5.0Comment: Testing | 5.0 - 8.0 | EXTERNAL | | | | performed at [facility], [address] | | LAB | | | | [address], | | | | | | [place] [address] | | | | + + + + + + | Blood, | NEGATIVEComment: Testing | | EXTERNAL | | | Urine | performed at [facility], [address] | | LAB | | | | [address], | | | | | | [place] [address] | | | | + + + + + + | Ketones | 40 (A)Comment: Testing | mg/dL | EXTERNAL | | | | performed at [facility], [address] | | LAB | | | [address], | | | | | | [place] [address] | | | | + + + + + + | Bilirubin, | NEGATIVEComment: Testing | | EXTERNAL | | | Urine | performed at [facility], [address] | | LAB | | | | [address], | | | | | | [place] [address] | | | | + + + + + + | Glucose, | NEGATIVEComment: Testing | mg/dL | EXTERNAL | | | Urine | performed at [facility], [address] | | LAB | | | | [address], | | | | | | [place] [address] | | | | + + + + + + + + | Specimen | + + | | + + + +---------+ + + | Performing | Address | City/State/Zipcode | Phone Number | | Organization | | | | + +---------+ + + | EXTERNAL LAB | | | | + +---------+ + + MRSA NAAT (05/28/2015 3:29 PM PDT) + + | Specimen | + + | | + + + + + | Narrative | Performed At | + + + | SOURCE NARES(NOSE) | EXTERNAL LAB | | Testing performed at [address];[place] [address] MRSA PCR | | | NEGATIVE Testing performed at | | | [address];[place] [address] | | + + + + +---------+ + + | Performing | Address | City/State/Zipcode | Phone Number | | Organization | | | | + +---------+ + + | EXTERNAL LAB | | | | + +---------+ + + Culture, Fungus (05/28/2015 12:05 PM PDT) + + | Specimen | + + | | + + + + + | Narrative | Performed At | + + + | Specimen Description BONE CULTURE | EXTERNAL LAB | | NO FUNGUS ISOLATED | | | Testing performed at [facility], [address] | | [place] [address] | | + + + + +---------+ + + | Performing | Address | City/State/Zipcode | Phone Number | | Organization | | | | + +---------+ + + | EXTERNAL LAB | | | | + +---------+ + + Culture, Anaerobic (05/28/2015 12:05 PM PDT) + + | Specimen | + + | | + + + + + | Narrative | Performed At | + + + | Specimen Description BONE GRAM STAIN | EXTERNAL LAB | | 1+ | | | WBC'S SEEN | | | NO ORGANISMS SEEN CULTURE | | | NO GROWTH | | | Testing performed at [facility], [address] [facility], | | | [place] [address] | | + + + + +---------+ + + | Performing | Address | City/State/Zipcode | Phone Number | | Organization | | | | + +---------+ + + | EXTERNAL LAB | | | | + +---------+ + + Type and Screen (05/28/2015 10:36 AM PDT) + + + + + + | Component | Value | Ref Range | Performed | Pathologist | | | | | At | Signature | + + + + + + | ABO Rh | O POSITIVE | | EXTERNAL | | | | | | LAB | | + + + + + + | ABO Rh | Testing performed at | | EXTERNAL | | | | [facility] | | LAB | | | | [address];[place] [id number] | | | | + + + + + + | Antibody | NEGATIVE | | EXTERNAL | | | Screen | | | LAB | | + + + + + + | Antibody | Testing performed at | | EXTERNAL | | | Screen | [facility] | | LAB | | | | Blvd;[place] [address] | | | | + + + + + + | BB BAND | [id number] | | EXTERNAL | | | | | | LAB | | + + + + + + | BB BAND | Testing performed at | | EXTERNAL | | | | [facility];[address] [place] [address] | | LAB | | | | [place] [id number] | | | | + + + [...] + | Diagnosis | + + | Unspecified acquired deformity of head | + + documented in this encounter
--- OUTSIDE RECORDS SUMMARY | ~2020-04-05 | XMS | Clinical Summary ---
Demographics + + + | Address | [address] | | | [place] [address] | + + + | Home Phone | | + + + | Preferred Language | Unknown | + + + | Marital Status | | + + + | Congregation Affiliation | Unknown | + + + | Race | Unknown | + + + | Ethnic Group | Unknown | + + + Author + + + | Author | [facility] | | | and [place]leg[place] | + + + | Organization | [facility] | | | [...] Team Providers + +------+ + | Care Strand Galvanizer Name | Role | Phone | + [...] fluids, | | vancomycin, and cefepime at [facility], now hemodynamically | | stable- Has urinary source, so will treat with IV ceftriaxone and | | await cultures from [facility] | + + + + + + [...] [place] | | | 223.58 | | [id number]: Qty: 1 | | Yaw | SYNTHES - | | | 1 / / | | on 06/19/2019 by Kwabena, | | | SYNT | | | | | Tony Judd MD at [facility] | | | | | | | | [facility] | | | | | | | + +-------+--------+ +--------+--------+--------+ | Screw Crtx Slf-Tp Ss 3.5x20mm | Screw | Right: | JJHCS DEPUY | | | 204.82 | | - [id number]: Qty: | | Ulna | SYNTHES - | | | / / | | 3 on 06/19/2019 by Kwabena, | | | SYNT | | | | | Tony Judd MD at [facility] | | | | | | | | [facility] | | | | | | | + +-------+--------+ +--------+--------+--------+ | Screw Crtx Slf-Tp Ss 3.5x22mm | Screw | Right: | JJHCS DEPUY | | | 204.82 | | - [id number]: Qty: | | Ulna | SYNTHES - | | | 2 / / | | 2 on 06/19/2019 by Kwabena, | | | SYNT | | | | | Tony Judd MD at [facility] | | | | | | | | [facility] | | | | | | | + +-------+--------+ +--------+--------+--------+ | Screw Crtx Slf-Tp Ss 3.5x24mm | Screw | Right: | JJS DEPUY | | | 204.82 | | - [id number]: Qty: | | Ulna | SYNTHES - | | | 4 / / | | 1 on 06/19/2019 by Kwabena, | | | SYNT | | | | | Tony Judd MD at [facility] | | | | | | | | [facility] | | | | | | | + +-------+--------+ +--------+--------+--------+ | Screw Crtx Slf-Tp 2.7x18mm - | Screw | Right: | [facility] | | | 202.81 | | [id number]: Qty: 1 | | Ulna | SYNTHES - | | | 8 / / | | on 06/19/2019 by Kwabena, | | | SYNT | | | | | Tony Judd MD at [facility] | | | | | | | | [facility] | | | | | | | + +-------+--------+ +--------+--------+--------+ | Duragen 5"X7" - | | | NA UNKNOWN | | 01/18/ | [id number] | | [id number]: Qty: 1 on | | | | | 2016 | / | | 10/11/2014 by Arlette, | | | | | | /[id number] | | Anthony HENRIQUEZ MD | | | | | | 21 | + +-------+--------+ +--------+--------+--------+ | Algrft Dura Durgn Mtrx 3x3 | | Right: | [employer] | | 08/27/ | ID-330 | | Bx5 - [id number]: Qty: | | Brain | NEUROSCIENC | | 2016 | 5 / | | 1 on 05/28/2015 by Earl, | | | FRANCK - INNE | | | /[id number] | | Gloria Baumann MD | | | | | | 52 | + +-------+--------+ +--------+--------+--------+ | Mesh Grid Hcd 11x7.5 | | Right: | [employer] - | | | 015- | | - - | | Brain | MEDT | | | 01-4 / | | [id number]: Qty: 1 on | | | | | | / | | 05/28/2015 by Gloria Elliott | | | | | | | Jaylene Baumann MD | | | | | | | + +-------+--------+ +--------+--------+--------+ | Plate Dbl Y 3h 5mm - | | Right: | [employer] - | | | 015- | | [id number]: Qty: 2 on | | Brain | MEDT | | | 7 / | | 05/28/2015 by Gloria Elliott | | | | | | /[id number] | | L, MD | | | | | | 98 | + +-------+--------+ +--------+--------+--------+ | Screw S/Tap 1.6x4.0 - | | Right: | [employer] - | | | [id number] | | [id number]: Qty: 14 on | | Brain | MEDT | | | 0 / / | | 05/28/2015 by Gloria Elliott | | | | | | | | L, MD | | | | | | | + +-------+--------+ +--------+--------+--------+ | Plate Dogbone 8mm - | | Right: | [employer] - | | | 015-04 | | [id number]: Qty: 1 on | | Brain | MEDT | | | 2 / | | 05/28/2015 by Gloria Elliott | | | | | | /[id number] | | L, MD | | | | | | 59 | + +-------+--------+ +--------+--------+--------+ | Screw S/Tap 1.6x4.0 - | | | [employer] - | | | [id number] | | [id number]: Qty: 8 on | | | MEDT | | | 0 | | 05/29/2015 by Gloria Elliott | | | | | | /[id number] | | MD Suly | | | | | | 40 / | + +-------+--------+ +--------+--------+--------+ | Algrft Dura Durgn Mtrx 3x3 | | | [employer] | | 08/20/ | ID-330 | | Bx5 - [id number]: Qty: | | | NEUROSCIENC | | 2016 | 5 | | 1 on 05/29/2015 by Earl, | | | ES - INNE | | | /[id number] | | Gloria Baumann MD | | | | | | 5 | | | | | | | | /[id number] | | | | | | | [...] +---------+--------+ | [place]ICAID [place] | MEDICA | [id number] | 09/20/19 | [phone] | | Medica | | | [place] | | 18-Pre | 2 | | id | | | PLUS | | sent | | | | + +--------+ +--------+ +---------+--------+ | [facility] | [facility] | [id number] | 03/21/19 | | | Indemn | [...] Person | Self | [birth year] | [address] | | rachelle Ring | al/Fam | | 1961 | [phone] | [place], | | | ryan | | | [address] (Home) | [place] [address] | + +--------+ +--------+ + + Advance Directives + + + + + | Type | Date Recorded | Patient | Explanation | | | | Web Editor | | + + + + + | Power of | | | | | Vacuum Cleaner Mechanic | | | | + + + [...]
--- OUTSIDE RECORDS SUMMARY | ~2020-04-05 | XMS | Encounter Summary ---
Demographics + + + | Address | [address] | | | [place] [address] | + + + | Home Phone [...] + + + | Author | [facility] | + + + | Organization | [facility] | + + + | Address | [...] Team Providers + +------+ + | Care Mens Locker Room Attendant Name | Role | Phone | + [...] | | | | | [place], | | | | | | [place] [address] | | | | | | [phone] | | | +--------+ + + + [...]
--- OUTSIDE RECORDS SUMMARY | ~2020-04-05 | XMS | Encounter Summary ---
Demographics + + + | Address | [address] | | | [place] [address] | + + + | Home Phone | | + + + | Preferred Language | Unknown | + + + | Marital Status | | + + + | Tenriism Affiliation | Unknown | + + + | Race | Unknown | + + + | Ethnic Group | Unknown | + + + Author + + + | Author | [facility] | | | and [place]leg[place] | + + + | Organization | [facility] | | [...] | + + +---------+ + | Teressa Lavcharlene | ECON | Unknown | + | + + +---------+ + Care Team Providers + +------+ + | Care Warehouse Handler Name | Role | Phone | + +------+ + PCP | Unavailable | + +------+ + Encounter Details +--------+ + + + + | Date | Type | Department | Care Team | Description | +--------+ + + + + | 09/04/ | Hospital | [facility] | Conversion | Pain | | 2014 | Encounter | CONVERSION [address] | Transaction, | | | | [address] | Provider Unknown | | | | | [place], [place] | [phone] | | | | | [address] | | | | | | [phone] | | | +--------+ + + + [...] | + + | Marlon Santamaria - 05/06/2019 1:15 AM PDT This is a non-reportable procedure | | without a radiologist report and isused for image storage only | + + documented in this encounter Visit Diagnoses + + | Diagnosis | + + | Pain Generalized pain | + + documented in this encounter"
--- OUTSIDE RECORDS SUMMARY | ~2020-04-05 | XMS | Encounter Summary ---
Demographics + + + | Address | [address] | | | [place] [address] | + + + | Home Phone | | + + + | Preferred Language | Unknown | + + + | Marital Status | Single | + + + | Islam Affiliation | Unknown | + + + [...] Team Providers + +------+ + | Care Automated Manufacturing Instructor Name | Role | Phone | + +------+ + PCP | Unavailable | + +------+ + Encounter Details +--------+ + + + + | Date | Type | Department | Care Team | Description | +--------+ + + + + | 02/17/ | Results | Orthopaedics at | [place], | | | 2002 | Only | [facility] [address] | MD Manuelito | | | | [address] | | | | | | Mailcode: [id number] | | | | | | [facility] | | | | | | [place], [place] | | | | | | [address] | | | | | | [phone] | | | +--------+ + + + [...]
--- OUTSIDE RECORDS SUMMARY | ~2020-04-05 | XMS | Encounter Summary ---
Demographics + + + | Address | [address] [facility] | | | [place] [address] | + + + | Home Phone [...] Author + + + | Author | [facility] | + + + | Organization | [facility] | + + + | Address [...] Team Providers + +------+ + | Care Sparmaker Name | Role | Phone | + [...] | | | | Dyana De P[place], | | | | | | [place] [address] | | | +--------+ + + + [...] | | Patient: EVANS ASTORGA Med Rec: [id number] Sex M Bdate: 1960 | | Date/Time Data | | Entered Into [facility] | | Anesth PostOp | | Surgery Date [id number] 02/19/03 10:45 | | Anesthesiologist BARRETT HELLER 02/19/03 10:45 | | | + + documented in this encounter Visit Diagnoses Not on filedocumented in this encounter"
--- OUTSIDE RECORDS SUMMARY | ~2020-04-05 | XMS | Encounter Summary ---
Demographics + + + | Address | [address] [facility] [facility] | | | [place] [address] | + + + | Home Phone [...] Team Providers + +------+ + | Care Risk Management Manager Name | Role | Phone | [...] | | | | Dyana De Paz [place], | [place], [place] | | | | | [place] [address] | [address] | | | | | [phone] | | | +--------+ + + + [...]
--- OUTSIDE RECORDS SUMMARY | ~2020-04-05 | XMS | Encounter Summary ---
Demographics + + + | Address | [address] | | | [place] [address] | + + + | Home Phone | | + + + | Preferred Language | Unknown | + + + | Marital Status | | + + + | Muslim Affiliation | Unknown | + + + [...] Team Providers + +------+ + | Care Physical Security Specialist Name | Role | Phone | + [...] OP [address] | [place] [address] | | | | | [place] | [phone] | | | | | [address] | | | | | | [phone] | Ha Herrmann, | | | | | | COMMUNICATIONS MAINTAINER [address] | | | | | | [place] [address] | | | | | | [phone] | | | | | | | [...] +----+---+ + + | | 0 | [place] | | | | 9 | 43-degrees [...] +----+---+ + + | | 1 | [place] off | | | | 0 | [...] 20 gauge; other (see comments); | | 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 male 1960 [id number] Procedure(s) ORIF ULNA FRACTURE (Right Arm Lower) [...] signed by Tony Molina MD 06/20/2019 5:[address] [facility] 5: 22 AM PDTAnesthesia Procedure Notes [...] 8:15 AM PDT ANESTHESIA PREANESTHESIA EVALUATION [facility] 58 [facility] male 1960 [id number] Procedure(s): ORIF ULNA FRACTURE (Right Arm Lower) [...] NOTE Tony Sánchez 58 y.o. male 1960 [id number] ORIF ULNA FRACTURE (Right Arm Lower) HANDOFF [...] receiving team. Ha Herrmann CRNA 06/19/2019 10:[address] [facility] documented in this encounter Plan of [...]
--- OUTSIDE RECORDS SUMMARY | ~2020-04-05 | XMS | Encounter Summary ---
Demographics + + + | Address | [address] [facility] | | | [place] [address] | + + + | Home Phone | | + + + | Preferred Language | Unknown | + + + | Marital Status | Single | + + + | Mandaeism Affiliation | Unknown | + + + [...] Team Providers + +------+ + | Care Test Borer Helper Name | Role | Phone | + [...] | | | | | MD [address] | [address] | | | | | | [address] | [address] | | | | | | [place], [place] | [place] for | | | | | | [address] | Health and | | | | | | Phone: | Healing, | | | | | | [phone] | [address] | | | | | | Fax: | [place], [place] | | | | | | [phone] | [address] | | | | | | | Phone: | | | | | | | [phone] | | | | | | | Fax: | | | | | | | [phone] | +--------+--------+ + + + + Encounter Details +--------+---------+ + + + | Date | Type | Department | Care Team | Description | +--------+---------+ + + + | 03/13/ | Office | [facility] | Azeem Dietrich | Cirrhosis (HCC); | | 2009 | Visit | [facility] | E, MD [address] | Esophageal varices | | | | [address] | Ave [place], [place] | ([facility]) | | | | for Health and | [address] | | | | | Healing, [address] | [phone] | | | | | [place], [place] | | | | | | [address] | | | | | | [phone] | | | +--------+---------+ + + + [...] [facility] | REGIONAL | | [place] [address] [facility] | LABORATORY | | [place] [address] | | + + + + + + + + | Performing | Address | City/State/Zipcode | Phone Number | | Organization | | | | + + + + + | [facility] | [address] | [place] [address] | | | LABORATORY | | | [...] | LABORATORY | | | | at [facility], | | | | | | [place], [place]. | | | | + + + + + + + + | Specimen | + + | Blood - Blood | + + + + + | Narrative | Performed At | + + + | [facility]) [facility] | [facility] | | [place] [address] [facility] | REGIONAL | | [place] [address] | LABORATORY | + + + + + + + + | Performing | Address | City/State/Zipcode | Phone Number | | Organization | | | | + + + + + | [facility] | [address] | [place] [address] | | | LABORATORY | | | [...] by: | | | | | | [facility] | | | | | | Services [address] | | | | | | [place] | | | | | | [address] | | | | + + + + + + + + | Specimen | + + | Urine - Urine | + + + + + + + | Performing | Address | City/State/Zipcode | Phone Number | | Organization | | | | + + + + + | [facility] | [address] | [place], [place] | | | UNIV P[facility] - MANUAL | | [address] | | + + + + + [...] At | + + + | [facility]) [facility] | [facility] | | [place] [address] [facility] | REGIONAL | | [place] [address] | LABORATORY | + + + + + + + + | Performing | Address | City/State/Zipcode | Phone Number | | Organization | | | | + + + + + | [facility] | [address] | [place] [address] | | | LABORATORY | | | [...] At | + + + | [facility]) [facility] | [facility] | | [place] [address] [facility] | [facility] | | [place] [address] | LABORATORY | + + + + + + + + | Performing | Address | City/State/Zipcode | Phone Number | | Organization | | | | + + + + + | [facility] | [address] | [place] [address] | | | LABORATORY | | | [...] [facility] | [facility] | | [place] [address] [facility] | REGIONAL | | [place] [address] | LABORATORY | + + + + + + + + | Performing | Address | City/State/Zipcode | Phone Number | | Organization | | | | + + + + + | [facility] | [address] | [place] [address] | | | LABORATORY | | | [...] by | | | | | | [facility], | | | | | | | | | | | | [address] [facility] [facility] | | | | | | [address] [facility] [address] | | | | | | [phone] | | | | | | | | | | | | www.[employer], | | | | | | Magui [...] [facility] | [address] | [place], [place] | | | UN[facility] - INT[facility] | | [address] | | + + + + + [...] At | + + + | [facility] ([facility]) [facility] | [facility] | | [place] [address] [facility] | DEPARTMENT OF | | [place] [address] | PATHOLOGY | + + + + + + + + | Performing | Address | City/State/Zipcode | Phone Number | | Organization | | | | + + + + + | [facility] DEPARTMENT OF | [address] | [place] [address] | | | PATHOLOGY | [address] [...] | + + + + + | [facility] DEPARTMENT OF | [address] | [place] [address] | | | PATHOLOGY | [address] | | | + + + + + INR (03/13/2010 9:50 AM PDT) + + + + + + | Component | Value | Ref Range | Performed | Pathologist | | | | | At | Signature | + + + + + + | INR | 1.19Comment: | 0.90 - 1.20 INR | [facility] | | | | INR Therapeutic [...] | + + + + + | [facility] | [address] | [place] [address] | | | PATHOLOGY | [address] [...] | | | DEPARTMENT | | | [place] | | | OF | | | [...] | + + + + + | [facility] | [address] | [place] [address] | | | PATHOLOGY | [address] [...]
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
--- OUTSIDE RECORDS SUMMARY | ~2020-04-05 | XMS | Encounter Summary ---
Demographics + + + | Address | [address] | | | [place] [address] | + + + | Home Phone | | + + + | Preferred Language | Unknown | + + + | Marital Status | | + + + | Jewish Affiliation | Unknown | + + + | Race | Unknown | + + + | Ethnic Group | Unknown | + + + Author + + + | Author | [facility] | | | and [place] | + + + | Organization | [facility] | | | and [...] Team Providers + +------+ + | Care Cooker Syrup Name | Role | Phone | + +------+ + PCP | Unavailable | + +------+ + Encounter Details +--------+ + + + + | Date | Type | Department | Care Team | Description | +--------+ + + + + | 10/11/ | Hospital | [facility] | Conversion | Headache(784.0) | | 2015 | Encounter | CONVERSION [address] | Transaction, | | | | | [address] | Provider Unknown | | | | | [place], [place] | | | | | | [address] | (Fax) | | | | | [phone] | | | +--------+ + + + [...]
--- OUTSIDE RECORDS SUMMARY | ~2020-04-05 | XMS | Encounter Summary ---
Demographics + + + | Address | [address] | | | [place] [address] | + + + | Home Phone | | + + + | Preferred Language | Unknown | + + + | Marital Status | | + + + | Church Affiliation | Unknown | + + + | Race | Unknown | + + + | Ethnic Group | Unknown | + + + Author + + + | Author | [facility] | | | and [place]leg[place] | + + + | Organization | [facility] | | | [...] Team Providers + +------+ + | Care Printing Equipment Mechanic Name | Role | Phone | [...] + + | 11/30/ | Anesthesia | [facility] | Marco Antonio Penn | | | 2020 | Event | [facility] MRI [address] | DO [address] | | | | | [place], | [place] | | | | | [place] [address] | [place] [address] | | | | | [phone] | [phone] | | | | | | | [...] | nabeel | procedure documentation); Left; | aH Herrmann CRNA | Christiane Frye RN | [...] 12/01/19 1330 by | | eral | [id number] catheter system; | Christiane Frye RN | [...] EVALUATION Tony Sánchez 58 y.o. male 1960 [id number] Procedure(s) MRI LUMBAR SPINE WO CONTRAST Cooperates? [...] Marco Antonio Penn DO 12/01/2019 1:56 PM [facility] Marco Antonio Penn [...] EVALUATION Tony Sánchez 58 y.o. male 1960 [id number] Procedure(s): MRI LUMBAR SPINE WO CONTRAST Medical,anesthesia, [...] Interval:144 ms P Duration:148 ms P Horizontal [place]:21 deg P Front [place]:46 deg Q Onset:508 ms QRSD Interval:128 ms QT Interval:356 ms QTcB:443 ms QTcF:412 ms QRS Horizontal [place]:88 deg QRS [place]:-25 deg I-40 Horizontal [place]:53 deg I-40 Front [place]:8 deg T-40 Horizontal [place]: deg T-40 Front [place]:178 deg T Horizontal [place]:28 deg T Wave [place]:14 deg S-T Horizontal [place]:25 deg S-T Front [place]:19 deg Severity:- ABNORMAL ECG - INTERP:SINUS RHYTHM [...] NOTE Tony Sánchez 58 y.o. male 1960 [id number] MRI LUMBAR SPINE WO CONTRAST HANDOFF NOTE [...] Marco Antonio Penn DO 12/01/2019 12:45 PM [facility] signed by Marco Antonio Penn [...]
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
--- OUTSIDE RECORDS SUMMARY | ~2020-04-05 | XMS | Encounter Summary ---
Demographics + + + | Address | [address] | | | [place] [address] | + + + | Home Phone | | + + + | Preferred Language | Unknown | + + + | Marital Status | | + + + | Anabaptism Affiliation | Unknown | + + + | Race | Unknown | + + + | Ethnic Group | Unknown | + + + Author + + + | Author | [facility] | | | and Olegarioana | + + + | Organization | [facility] | | | and [...] Team Providers + +------+ + | Care Pearler Name | Role | Phone | + +------+ + PCP | Unavailable | + +------+ + Encounter Details +--------+ + + + + | Date | Type | Department | Care Team | Description | +--------+ + + + + | 06/22/ | Hospital | [facility] | Sandip Hall MD | | | 2008 - | Encounter | [facility] | [address] | | | | | MED [address] [place] [address] S | [place] [address] | | | 06/23/ | | [address] | [phone] | | | 2008 | | [place], [place] | | | | | | [address] | Elizabeth Galan MD | | | | | [phone] | [address] | | | | | | [address] [facility] | | | | | | [place] [address] | | | | | | [phone] | | | | | | | [...] MEDICAL HISTORY: The patient is a 48-year-old [place] with a long history of known liver cirrhosis, 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 We [...] and was discharged to return to his [facility] clinic, which he promises me he will [...] this time until cleared by his primary care worker. I spent 46 minutes seeing patient, coordinating discharge, and attempting to addiction counselor him into staying. _ TOBIN GALARZA MD D: Yoselyn Jun 23 16:37:54 2008 EST T: Yoselyn Jun 23 23:55:09 2008 EST Authenticated by Tobin Galarza MD On 06/24/2009 06:22:14 AM NBASE SCAN [facility] - 06/23/2009 12:00 AM PDT documented in this enc ounter Progress [facility] 06/24/2009 12:00 AM PDT NBASE SCAN NDJ[facility]AN [facility]IEGO 06/24/2009 12:00 AM PDT NBASE SCAN [facility] - 06/24/2009 12:00 AM PDT documented in this encounter H&P Notes Sandip Hall MD - 12/13/2011 4:01 AM PDTCHIEF COMPLAINT: Weakness and change in mental status. HPI: The patient is a 48-year-old with a past medical history of liver cirrhosis secondary to alcoholism and hepatitis B secondary to drug abuse, who came into the ER of [place], brought in by his mother with weakness and change in his mental status. [place], [place] and was visiting over here at [facility], where he developed altered mental status and he was very, very weak. He was brought in by mother and according to the mother, he was perfectly fine. After he was involved in some activities over here at the [facility] and later on mother noticed that he was getting a little bit confused and then eventually passes out. 911 was called and the patient was brought into the ER. Mother also brought in a letter from his regular doctor, which has been made a part of this chart from [facility]. According to that letter, which listed his [...] street drugs recently. He resides in [place] in [place], [place]. He was visiting over here at the [facility]. The patient's PCP is at the [facility] in [place], [place]. His letter has been made part [...] - 06/24/2009 12:00 AM PDT NBASE SCAN [facility] - 06/23/2009 12:00 AM PDTElectro nically signed by Ricky Murillo at 06/25/2013 1:55 PM PDTdocumented in this encounter [place] Notes Anesthesia Procedure Notes - ONBASE SCAN [facility] - 06/24/2009 12:00 AM PDTElectronically tamara d by Ricky Murillo at 06/02/2013 4:21 PM PDTdocumented in this encounter ED Notes Physician, Er - 12/13/2011 4:01 AM PDTERCHART ER NOTE [facility] Name: [facility] (16:19 [facility]) NOTES: Last FRANTZ, First: KRUEGER, C/O WEAKNESS,HX LIVER DZ, BP: 110/62, HR: 80, RR: 20. TRIAGE ([facility] Jun 22, 2009 16:48 [facility]) COMPLAINT: COMPLAINT: WEAKNESS. ([facility] Jun 22, 2009 16:48 [facility]) PROVIDERS: TRIAGE NURSE: Tobin Lao RN. ([facility] Jun 22, 2009 16:48 [facility]) ADMISSION: URGENCY: Level 3, AMBULANCE: [facility], TRANSPORT: Aid 1 ([facility]), BED: EXAM 03. ([facility] Jun 22, 2009 16:48 [facility]) PATIENT: NAME: Tony Fortune, AGE: 48, GENDER: male, : Wed1960, TIME OF GREET: Sat Jun 22, 2009 16:30, FAST TRACK: NO, , , PERSON ID: [id number], PCP: Local No. ([facility] Jun 22, 2009 16:48 [facility]) NURSING HPI: [...] by: Emeka Rodriguez MD Entered by: Yari aGrg RN Sat Jun 22, 2009 19:09 Documented as given by: Yari Garg RN Sat Jun 22, 2009 19:09 Patient, Medication, Dose, Route and Time verified prior to administration. Time given: 1899, Amount given: 0.4mg, Co-signed by: Graham HicksLoraine [facility] Jun 22, 2009 19:11 . (19:09 PO1) NS: Free Text order: NS : 500 ml bolus then 250ml/hr : IV Fluid Ordered by: Emeka Rodriguez MD Entered by: Emeka Rodriguez MD Sat Jun 22, 2009 19:09 , Acknowledged by: Yari Garg RN Sat Jun 22, 2009 19:09, [facility]: [facility]:11 Documented as given [...] Jun 22, 2009 19:09, Co-signed by: [facility] 2009 19:11 Documented as given [...] Pt tremoring. C/o constipation. . NURSING PROCEDURE: FINANCIAL AUDITOR (17:07 ALN) TIME: Patient's identity verified by, patient stating name, patient stating date. Patient placed on clinical support manager, placed on non-invasive blood pressure monitor, placed [...] admitted to, med-surg unit, Report called/faxed to [facility] with call back number, Patient transported via, cart, Accompanied by, emergency room machine set up technician, Transported with, oxygen, Belongings are. with patient. ORDERS Blood NEEDED if not obtained by [facility] for IBEX on [facility] Jun 22, 2009 16:55 Status: Done by [facility] Jun 22, 2009 17:01. ua/utox by [facility] for IBEX on [facility] Jun 22, 2009 16:55 Status: Done by [facility] Jun 22, 2009 17:10. Reason: cbc, cmp, [...] changed from (none) to Emeka Rodriguez MD. Second Baker changed from (none) to Marija Soler RN. Primary Nurse changed from Yari Garg RN to Ama Diaz RN. Primary Nurse: Marija Soler RN. Second Baker changed from Marija Soler RN to Yari Garg RN. Admit Area: reg. [id number] by Interface, Payment: O2, Zip Code: [address], Language: E, Race: 5, SSN: [id number], COPAY NEEDED: N. Race: (none), Admit Room: C2, Payment: (none), COPAY NEEDED: (none). Admit Room: (none). Admit Room: 203. Nichols: MARIJA=MICHELL Soler, Marija STEVE=MICHELL Garg, Yari Calvin CEH=MICHELL Lao, Tobin POLLOCKK=MICHELL Whyte, Kelle LEE=MICHELL Diaz, Ama AVILA=MICHELL Reynaga, Terra LOVE=Milena Sanchez KH1=MICHELL Frank, Judi PO1=MD Jennifer, Emeka PRP=GUERRERO Pearl, Per documented in this encounter Miscellaneous Notes Plan of Care - ONBASE SCAN [facility] - 07/10/2009 12:00 AM PDT atient Care Conference - ONBASE SCAN [facility] - 06/25/2009 12:00 AM PDT iscellaneous - ONBASE SCAN [facility] - 06/25/2009 12:00 AM PDT 4:2 1 PM PDTPatient Care Conference - ONBASE SCAN [facility] - 06/24/2009 12:00 AM PDTElectronically s igned by Ricky Murillo at 06/02/2013 4:21 PM PDTPlan of Care - ONBASE SCAN [facility] - 06/24/2009 12:00 AM PDT lan of Care - ONBASE SCAN [facility] - 06/24/2009 12:00 AM PDTElectronically signed by Ricky Murillo at 3 4:21 PM PDTPlan of Care - ONBASE SCAN [facility] - 06/24/2009 12:00 AM PDT lan of Care - ONBASE SCAN [facility] - 06/24/2009 12:0 0 AM PDT lan of Care - ONBAS E SCAN [facility] - 06/24/2009 12:00 AM PDT 4: 21 PM PDTPlan of Care - ONBASE SCAN [facility] - 06/24/2009 12:00 AM PDT iscellaneous - ONBASE SCAN [facility] - 06/24/2009 12:00 AM PDT iscellaneous - ONBASE S CAN [facility] - 06/24/2009 12:00 AM PDT iscellaneous - ONBASE SCAN [facility] - 06/24/2009 12:00 AM PDT iscellaneous - ONBASE SCAN [facility] 06/24/2009 12:00 AM P DT iscellaneous - ONBASE SCA N [facility] 06/24/2009 12:00 AM PDT iscellaneous - ONBASE SCAN [facility] 06/24/2009 12:00 AM PDT iscellaneous - ONBASE SCAN [facility] 06/24/2009 12:00 AM PDT iscellaneous - ONBASE SCAN [facility] 06/24/2009 12:00 AM PDT P DTMiscellaneous - ONBASE SCAN [facility] 06/24/2009 12:00 AM PDT iscellaneous - ONBASE SCAN [facility] 06/24/2009 12:00 AM PDTEl ectronically signed by Ricky Murillo at 06/02/2013 4:21 PM PDTMiscellaneous - ONBASE SCAN [facility] - 06/24/2009 12:00 AM PDT Miscellaneous - ONBASE SCAN [facility] 06/24/2009 12:00 AM PDT npatient Medication Chart - ONBASE SCAN [facility] 06/24/2009 12: 00 AM PDT lan of Care - ONBA SE SCAN [facility] - 06/22/2009 12:00 AM PDT 1 :55 PM PDTMiscellaneous - BECKY SCAN [facility] - 06/22/2009 12:00 AM PDT documented in [...] PORTABLE DATE OF EXAM: 06/22/2009 INDICATION: | [facility] | | -weakness/fatigue FINDINGS: The heart and mediastinal contour | | | appear unremarkable. There is no acute infiltrate or consolidation. | | | There is no apparent pneumothorax or pleural effusion. The | | | lucency in the right lateral sulcus appears related to an artifact. | | | There is mild bony spurring in the AC joint. [place] EXAM NUMBER: | | | [id number] CHEST 1V [id number] | | + + + + + | Procedure Note | + + | Rosalio, Rad Conversion - 10/20/2011 9:09 PM [facility] CHEST 1V PORTABLE | | | | [...] spurring in the AC joint. | | [place] EXAM NUMBER: [id number] CHEST 1V [id number] | | IMPRESSION: | | IMPRESSION: No [...]
--- OUTSIDE RECORDS SUMMARY | ~2020-04-05 | XMS | Encounter Summary ---
Demographics + + + | Address | [address] | | | [place] [address] | + + + | Home Phone | | + + + | Preferred Language | Unknown | + + + | Marital Status | | + + + | Yarsani Affiliation [...] Providers + +------+ + | Care Ice Cream Server Name | Role | Phone | [...] | | | | | [address] [facility] | [place] [address] | | | | | [place] [address] | | | | | | [phone] | | | +--------+ + + + [...] | XR LUMBAR SPINE 2 OR | Routin | 06/20/2019 | | Results for this | | 3 VW | e | 12:00 AM | | procedure are in the | | | | PDT | | results section. | + +--------+ + + + documented in this encounter Results XR Lumbar Spine 2 or 3 Vw (06/20/2019 12:00 AM PDT) + + | Specimen [...]
--- OUTSIDE RECORDS SUMMARY | ~2020-04-05 | XMS | Encounter Summary ---
Demographics + + + | Address | [address] | | | [place] [address] | + + + | Home Phone [...] Team Providers + +------+ + | Care Filler Blender Name | Role | Phone | + +------+ + PCP | Unavailable | + +------+ + Encounter Details +--------+ + + + + | Date | Type | Department | Care Team | Description | +--------+ + + + + | 08/30/ | Hospital | [facility] | | | | 2008 | Encounter | [facility] GENER[facility] OP | | | | | | CONV DEPT [address] | | | | | | [place], | | | | | | [place] [address] | | | | | | [phone] | | | +--------+ + + + [...]
--- OUTSIDE RECORDS SUMMARY | ~2020-04-05 | XMS | Encounter Summary ---
Demographics + + + | Address | [address] | | | [place] [address] | + + + | Home Phone [...] + +------+ + | Care Director Of Hotel Operations Name | Role | Phone | + [...] | [address] | [address] | from Dr. Ennis's | | | | [address] [place], | [place], [place] | office) | | | | [place] [address] | [address] | | | | | [phone] | | | +--------+ + + + [...]
--- OUTSIDE RECORDS SUMMARY | ~2020-04-05 | XMS | Encounter Summary ---
Demographics + + + | Address | [address] | | | [place] [address] | + + + | Home Phone | | + + + | Preferred Language | Unknown | + + + | Marital Status | | + + + | Jehovah'S Witness Affiliation | Unknown | + + + | Race | Unknown | + + + | Ethnic Group | Unknown | + + + Author + + + | Author | [facility] | | | and Olegarioana | + + + | Organization | [facility] | | | [...] Team Providers + +------+ + | Care Railroad Supervisor Of Engines Name | Role | Phone | + +------+ + | Poornima Ny | PCP | | + +------+ + Encounter Details +--------+ + + + + | Date | Type | Department | Care Team | Description | +--------+ + + + + | 10/11/ | Abstract | [facility] | Provider, | | | 2019 | | NEUROSURGERY [address] | [address] | | | | | [address] | Igor FOREMAN | | | | | [place] | [place] [address] | | | | | [address] | | | | | | [phone] | | | +--------+ + + + [...]
--- OUTSIDE RECORDS SUMMARY | ~2020-04-05 | XMS | Encounter Summary ---
Demographics + + + | Address | [address] | | | [place] [address] | + + + | Home Phone [...] Team Providers + +------+ + | Care Facility Service Manager Name | Role | Phone [...] Torres | | | | | | [facility] and | | | | | | Counseling [address] | | | | | | [address] [place], | | | | | | [place] [address] | | | | | | [phone] | | | | | | | [...] | | + +---------+ + + | [facility] DEPARTMENT OF | | | [...] | | + +---------+ + + | [facility] DEPARTMENT OF | | | | | [...] | | + +---------+ + + | [facility] DEPARTMENT OF | | | [...] | | + +---------+ + + | [facility] DEPARTMENT OF | | | [...]
--- OUTSIDE RECORDS SUMMARY | ~2020-04-05 | XMS | Encounter Summary ---
Demographics + + + | Address | [address] | | | [place] [address] | + + + | Home Phone [...] Team Providers + +------+ + | Care Fence Post Driver Name | Role | Phone | + +------+ + PCP | Unavailable | + +------+ + Encounter Details +--------+ + + + + | Date | Type | Department | Care Team | Description | +--------+ + + + + | 05/24/ | Hospital | [facility] | Conversion | Pain | | 2015 | Encounter | CONVERSION [address] | Transaction, | | | | | [address] | Provider Unknown | | | | | [place], [place] | [phone] | | | | | [address] | | | | | | [phone] | | | +--------+ + + + [...]
--- OUTSIDE RECORDS SUMMARY | ~2020-04-05 | XMS | Encounter Summary ---
Demographics + + + | Address | [address] | | | [place] [address] | + + + | Home Phone [...] Team Providers + +------+ + | Care Lead Electrical Controls Engineer Name | Role | Phone | [...] Closed | Faustino Robles, | [address] | | | | | compression | PA-C [address] | [place], | | | | | fracture of | [address] | [place] | | | | | L2 lumbar | [address] | [address] | | | | | vertebra, | [place], | Phone: | | | | | initial | [place] [address] | [phone] | | | | | encounter | Phone: | Fax: | | | | | (HCC) | [phone] | [phone] | | | | | Procedures | Fax: | | | | | | MRI Lumbar | [phone] | | | | | | Spine [...] + + | 11/30/ | Hospital | [facility] | Faustino Pfeiffer, | Closed compression | | 2019 | Encounter | MED CTR IR INTRA OP | PA-C [address] | fracture of L2 | | | | [address] | [address] [place] | lumbar vertebra, | | | | [place], [place] | [place] [address] | initial encounter | | | | [address] | [phone] | (HCC) | | | | [phone] | | | | | | | Dave Plascencia MD [address] | | | | | | [address] [facility] | | | | | | [place] [address] | | | | | | [phone] | | | | | | | | | | | | Marco Antonio Penn | | | | | | DO [address] | | | | | | [address] [place] | | | | | | [place] [address] | | | | | | [phone] | | | | | | | [...] | | | ([facility]) | | + +--------+ + + [...]
--- OUTSIDE RECORDS SUMMARY | ~2020-04-05 | XMS | Encounter Summary ---
Demographics + + + | Address | [address] | | | [place] [address] | + + + | Home Phone [...] Team Providers + +------+ + | Care Development Specialist Name | Role | Phone | + +------+ + PCP | Unavailable | + +------+ + Encounter Details +--------+ + + + + | Date | Type | Department | Care Team | Description | +--------+ + + + + | 12/17/ | Abstract | [facility] | Azeem Dietrich | | | 2011 | | Center [place] [address] [address] | [address], [address] | | | | | [address] [place] | [address] [facility] [place] | | | | | for Health and | [address] | | | | | Healing, [address] | [phone] | | | | | [place], [place] | | | | | | [address] | | | | | | [phone] | | | +--------+ + + + [...]
--- OUTSIDE RECORDS SUMMARY | ~2020-04-05 | XMS | Encounter Summary ---
Demographics + + + | Address | [address] | | | [place] [address] | + + + | Home Phone | | + + + | Preferred Language | Unknown | + + + | Marital Status | Single | + + + | Anabaptist Affiliation | Unknown | + + + | Race | White | + + + | Ethnic Group | Not or | + + + Author + + + | Author | [facility] | + + + | Organization | [facility] | + + + | Address [...] Team Providers + +------+ + | Care Poly Operator Name | Role | Phone | [...]
--- OUTSIDE RECORDS SUMMARY | ~2020-04-05 | XMS | Encounter Summary ---
Demographics + + + | Address | [address] | | | [place] [address] | + + + | Home Phone | | + + + | Preferred Language | Unknown | + + + | Marital Status | | + + + | Anabaptist Affiliation | Unknown | + + + | Race | Unknown | + + + | Ethnic Group | Unknown | + + + Author + + + | Author | [facility] | | | and Olegarioana | + + + | Organization | [facility] | | | and [...] Providers + +------+ + | Care Senior Gis Analyst Name | Role | Phone | + +------+ + PCP | Unavailable | + +------+ + Encounter Details +--------+ + + + + | Date | Type | Department | Care Team | Description | +--------+ + + + + | 03/12/ | Hospital | [facility] | Conversion | Pain | | 2015 | Encounter | CONVERSION [address] | Transaction, | | | | | [address] | Provider Unknown | | | | | [place], [place] | [phone] | | | | | [address] | | | | | | [phone] | | | +--------+ + + + [...]
--- OUTSIDE RECORDS SUMMARY | ~2020-04-05 | XMS | Encounter Summary ---
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 + | MAGGI CASTANON | [address] | [place] [address] | | | [facility] | [...] | | | POC | Performed by [facility] [address] | | SACRED | | | | [address] [place], [place] | | HEART | | | | [address] | | MEDICAL | | | | [...] CASTANON | [address] | [place] [address] | | | [facility] | | | | | SHO JERONIMO [...] | | | POC | Performed by [facility] [address] | | SACRED | | | | [address], [place] | | HEART | | | | [address] | | MEDICAL | | | | [...] [address] | [place] [address] | | | HEART [facility] | | | | | LABORATORY [...] | | | POC | Performed by [facility] [address] | | SACRED | | | | [address] [place] | | HEART | | | | [address] | | MEDICAL | | | | [...] + + | MAGGI CASTANON | [address] | [place] [address] | | | [facility] | | | | | LABORATORY CERNER [...] | | | POC | Performed by [facility] [address] | | SACRED | | | | [address], [place] | | HEART | | | | [address] | | MEDICAL | | | | [...] [address] | [place] [address] | | | [facility] | | | | [...] | | | POC | Performed by [facility] [address] | | SACRED | | | | [address], [place] | | HEART | | | | [address] | | MEDICAL | | | | [...] + + | FABIOLAKAYLEEN CASTANON | [address] | [place] [address] | | | [facility] | | | | | LABORATORY PHANI [...] | | | POC | Performed by [facility] [address] | | SACRED | | | | [address] [place] | | HEART | | | | [address] | | MEDICAL | | | | [...] + + | [facility] | [address] | [place] [address] | | | [facility] | | | | [...] | | | POC | Performed by [facility] [address] | | SACRED | | | | [address], [place] | | HEART | | | | [address] | | MEDICAL | | | | [...] + + | MAGGI CASTANON | [address] | [place] [address] | | | [facility] | | | | | SHO JERONIMO [...] + + | Performing | Address | City/State/[facility] [place] [facility] | Phone Number | | Organization [...] | | | | | | [facility] | | | | | | [facility] | | | | | [facility] | | | | | | [facility] | | | | | | [facility] | | + + + + + + | Rh Type | PositiveComment: Patient | | REFERENCE | | | | is remote crossmatch | | [facility] | | | | eligible | | [...] + + + | Specimen Expiration Date: [id number] | REFERENCE LAB | | | [facility] [place] | | | [facility] | | [facility] | + + + + + + + + | Performing | Address | City/State/Zipcode | Phone Number | | Organization | | | | + + + + + | REFERENCE LAB | [address] | [place] [address] | [phone] | | [facility] | | | | | [facility] [...] | | | POC | Performed by [facility] [address] | | SACRED | | | | [address] [place] | | HEART | | | | [address] | | MEDICAL | | | | [...] + + | MAGGI CASTANON | [address] | [place] [address] | | | [facility] | | | | | SHO JERONIMO [...] | TRACEMASTER | | Duration:148 msP Horizontal [place]:21 degP Front [place]:46 degQ Onset:508 | | | msQRSD Interval:128 msQT Interval:356 msQTcB:443 msQTcF:412 msQRS | | | Horizontal [place]:88 degQRS [place]:-25 degI-40 Horizontal [place]:53 degI-40 | | | Front [place]:8 degT-40 Horizontal [place]: degT-40 Front [place]:178 degT | | | Horizontal [place]:28 degT Wave [place]:14 degS-T Horizontal [place]:25 degS-T | | | Front [place]:19 degSeverity:- ABNORMAL ECG -INTERP:SINUS | | | RHYTHMINTERP:RIGHT BUNDLE BRANCH BLOCKElectronically signed by: RASHEED | | | LARRY Hopkins 06-19-2019 08:30:08 | | |QTcB:443 ms | | |QTcF:412 ms | | |QRS Horizontal [place]:88 deg | | |QRS [place]:-25 deg | | |I-40 Horizontal [place]:53 deg | | |I-40 Front [place]:8 deg | | |T-40 Horizontal [place]: deg | | |T-40 Front [place]:178 deg | | |T Horizontal [place]:28 deg | | |T Wave [place]:14 deg | | |S-T Horizontal [place]:25 deg | | |S-T Front [place]:19 deg | | |Severity:- ABNORMAL ECG - | | |INTERP:SINUS RHYTHM | | |INTERP:RIGHT BUNDLE BRANCH BLOCK | | |Electronically signed by: LARRY IQBAL 06-19-2019 08:30:08 | | + + + + + + + + | Performing | Address | City/State/Zipcode | Phone Number | | Organization | | | | + + + + + | [facility] | [address] | [place] [address] | [phone] | + + + + + CBC [...] PROVID ENCE | | | | by [facility] [address], | | SACRED | | | | [place] [address] | | HEART | | | |Performed by [facility] [address], [place] [address] | | MEDICA L | | | [...] + + | [facility] | [address] | [place] [address] | | | [facility] | | | | [...] | | LABORATORY | | | | [facility] [address], | | CERNER | | | | [place] [address] | | | | + + + + + + + + | Specimen | + + | Blood specimen | | (specimen) | + + + + + + + | Performing | Address | City/State/Zipcode | Phone Number | | Organization | | | | + + + + + | FABIOLAVANCETravis CASTANON | [address] | [place] [address] | | | [facility] | | | | | LABORATORY PHANI [...] | | | POC | Performed by [facility] [address] | | SACRED | | | | [address] [place], [place] | | HEART | | | | [address] | | MEDICAL | | | | [...] + + | MAGGI CASTANON | [address] | [place] [address] | | | [facility] | | | | | LABORATORY CERNER [...] | | | POC | Performed by [facility] [address] | | SACRED | | | | [address], [place] | | HEART | | | | [address] | | MEDICAL | | | | [...] + + | FABIOLAVANCETravis CASTANON | [address] | [place] [address] | | | [facility] | | | | | LABORATORY PHANI [...] | | | POC | Performed by [facility] [address] | | SACRED | | | | [address] [place] | | HEART | | | | [address] | | MEDICAL | | | | [...] + + | [facility] | [address] | [place] [address] | | | [facility] | | | | [...] - 1.030 | [facility] | | | [place], | | | SACRED | | | [...] | | | Urine | Performed by [facility] [address] | | SACRED | | | | [address] [place] | | HEART | | | | [address] | | MEDICAL | | | | [...] + + | MAGGI CASTANON | [address] | [place] [address] | | | [facility] | | | | | LABORATORY CERNER [...] | | | | Signed by: Judi Gamez, Es | | Sign Date/Time: 06/18/2019 7:25 AM [...] + + | Rosalio, Rad Results In 06/18/2019 7:17 AM PDT | | CT [...] + + | Performing | Address | City/State/[place] [facility] | Phone Number | | Organization [...] | | | | | | [facility] | | | | | | [place] | | | | | [facility] | | | | | | [facility] | | | | | | [facility] | | + + + + + + | Rh Type | Positive | | REFERENCE | | | | | | [facility] | | | | | | [place] | | | | | | [facility] | | | | | | [facility] | | | | | | [facility] | | + + + + + + | Antibody | Negative | | REFERENCE | | | Screen | | | [facility] | | | | | | [place] [...] + + + | Specimen Expiration Date: [id number] | REFERENCE LAB | | | [facility] [place] | | | [facility] | | [facility] | + + + + + + + + | Performing | Address | City/State/Zipcode | Phone Number | | Organization | | | | + + + + + | REFERENCE LAB | [address] | [place] [address] | [phone] | | [facility] [place] | | | | | [facility] [...] | [facility] | | | | by [facility] [address] | | SACRED | | | | [place] [address] | | HEART | | | |Performed by [facility] [address], [place] [address] | | MEDICAL | | | | [...] + + | MAGGI CASTANON | [address] | [place] [address] | | | [facility] | | | | | LABORATORY CERNER [...] | | | Venous | Performed by [facility] [address] | mmol/L | SACRED | | | | [address], [place] | | HEART | | | | [address] | | MEDICAL | | | | [...] [address] | [place] [address] | | | [facility] | [...] | [facility] | | | SERUM/PLASM | [facility] [address], | | SACRED | | | A | [place] [address] | | HEART | | | |Performed by [facility] [address], [place] [address] | | MEDICAL | | | | [...] + | MAGGI CASTANON | [address] | [place] [address] | | | [facility] | | | | | SHO JERONIMO [...] | | | | | seconds.Performed by [facility] | | | | | | [address], | | | | | | [place] [address] | | | | + + + + + + + + | Specimen | + + | Blood specimen | | (specimen) | + + + + + + + | Performing | Address | City/State/Zipcode | Phone Number | | Organization | | | | + + + + + | MAG[facility] CASTANON | [address] | [place] [address] | | | [facility] | | | | | LABORATORY CERNER [...] CENTER | | | | 3.5Performed by [facility] [address] | | LABORATORY | | | | [address] [place] | | CERNER | | | | [address] | | | | + + + + + + + + | Specimen | + + | Blood specimen | | (specimen) | + + + + + + + | Performing | Address | City/State/Zipcode | Phone Number | | Organization | | | | + + + + + | MAGGI CASTANON | [address] | [place] [address] | | | [facility] | | | | | LABORATORY CERNER [...] | | LABORATORY | | | | [facility] [address], | | [place]IM[place] | | | | [place] [address] | | | | + + + + + + + + | Specimen | + + | Blood specimen | | (specimen) | + + + + + + + | Performing | Address | City/State/Zipcode | Phone Number | | Organization | | | | + + + + + | MAG[facility] CASTANON | [address] | [place] [address] | | | [facility] | | | | | SHO JERONIMO [...] PROVID ENCE | | | | by [facility] [address], | | SACRED | | | | [place] [address] | | HEART | | | |Performed by [facility] [address], [place] [address] | | MEDICA L | | | [...] + + | MAGGI CASTANON | [address] | [place] [address] | | | [facility] | | | | | LABORATORY PHANI [...] CONTINUOUS PRN, hypoglycemia, | | | Starting 9/29/19 at 0908, | | | Start infusion [...] | | | | | | | Harvey 06/18/19 at 0930 | | | | [...] | | | | | | | adbddx-pyp-tqpmb use of at least | | | [...] | | | | AC, NPO, Daytime [id number] Use | | | | | | | NIGHT DOSE for doses scheduled: | | | | | | | HS, 3AM, Nighttime [id number] | | | | | | | [...] | | | | | modification) on Wed06/22/19 at | | | | | | [...] | | | | | modification) on [facility] 06/22/19 at | | | | | [...] | | | | | modification) on [facility] 06/22/19 at | | | | | [...]
--- OUTSIDE RECORDS SUMMARY | ~2020-04-05 | XMS | Encounter Summary ---
Demographics + + + | Address | [address] | | | [place] [address] | + + + | Home Phone [...] Team Providers + +------+ + | Care Forklift Picker Name | Role | Phone | + +------+ + PCP | Unavailable | + +------+ + Encounter Details +--------+ + + + + | Date | Type | Department | Care Team | Description | +--------+ + + + + | 11/12/ | Hospital | [facility] | Rodo Draper, | | | 2008 - | Encounter | MED CTR ICU [address] | [address] [facility] | | | | | [place], | [place], [place] | | | 11/17/ | | [place] [address] | [id number] | | | 2008 | | [phone] | [phone] | | | | | | | [...]
--- OUTSIDE RECORDS SUMMARY | ~2020-04-05 | XMS | Encounter Summary ---
Demographics + + + | Address | [address] | | | [place] [address] | + + + | Home Phone [...] Team Providers + +------+ + | Care Power Generation Engineer Name | Role | Phone | + +------+ + PCP | Unavailable | + +------+ + Encounter Details +--------+ + + + + | Date | Type | Department | Care Team | Description | +--------+ + + + + | 10/11/ | Hospital | [facility] | Delgado, | Alcohol abuse; | | 2015 - | Encounter | [facility] [address] | Anila HENRIQUEZ MD | Comatose (HCC); | | | | [address] | [address] | Frequent falls; | | 10/29/ | | [place], [place] | [address] [place], [place] | Seizure ([facility]); | | 2014 | | [id number] | [phone] | Alcohol withdrawal | | | | [phone] | | (HCC); Cerebral | | | | | | edema ([facility]); | | | | | | Subdural hematoma, | | | | | | post-traumatic, | | | | | | sequela ([facility]); | | | | | | Traumatic brain | | | | | | injury, closed, | | | | | | sequela ([facility]) | +--------+ + + + [...] 1127 Date of Service: 11/12/141123 Status: Signed Rig Builder Helper: Cecilio Bravo MD (Physician) [facility] Service: Hospitalist Discharge Summary Date of [...] and multiple falls. Per ED report from [facility]: he was drinking earlier today at home and fell twice. He went to bed and then he was noted to be having what they thought was seizure activity and th ey could not wake him and called EMS. He was taken to the ED at [facility] in [place] a nd then transferred to [...] and multiple falls who was transferred from [facility] due to a fall, seizures . [...] placement to improve s trength and mobility. net software engineer are working on finding placement which may take few days, however if accepted then can be discharged for rehabilitation Events Overnight: 10/22 pt still somewhat confused, thought he was in [place]. He knew that he fell, but didn [...] scussion. CM routed updated medical notes to [facility] and [place]. PT recommending SNF. C M spoke w/ Tyler at [facility] and Mary Beth at [place], efaxed updated medical information, bot h are [...] at this time; planned for placement in [place] once patient is off sitter for 48 hrs. Otherwise patient continues to interact appropriately at this time and no impulsiveness is shown. Patient is mostly in chair or in bed and sleeping. 10/27 pt is alert today, no complications. Continue with PT. Pt without sitter. Pending place ment still. 10/28 planning re-evaluation of patient's status for admission to [place]. Pt otherwise is not impulsive, mostly calm [...] FOR BLEED; Surgeon: Anila Delgado MD; Location: [facility] IN OR; Service: Neurosurgery; Laterality: Right; Craniectomy Right 10/11/2014 Procedure: CRANIECTOMY; Surgeon: Anila Delgado MD; Location: [facility] OR; Ser vice: Neurosurgery; Laterality: Right; [...] on file. Follow up: Anila Delgado MD [address] [place] [address] Call right away to schedule an appointment [...] are the prescriptions that you need to black pickler. You may get the following medications from [...] 10/29/141122 Date of Service: 10/29/141122 Status: Signed Rig Builder Helper: Cecilio Bravo MD (Physician) [facility] Service: Hospitalist Progress Note Hospital Day: LOS: 18 days Post-Op Day: 11 Days Post-Op SUBJECTIVE Patient Summary: Per ICU note: The patient is a 53 y.o. male with significant past medical history of chronic alcohol abus e and multiple falls. Per ED report from [facility]: he was drinking earlier today at home and fell twice. He went to bed and then he was noted to be having what they thought was seizure activity and th ey could not wake him and called EMS. He was taken to the ED at [facility] in [place] a nd then transferred to the ED [...] and multiple falls who was transferred from [facility] due to a fall, seizures . [...] placement to improve s trength and mobility. net software engineer are working on finding placement which [...] Oct 17 2014 7:38AM Referring Provider Line: [phone] ID: [id number] Ct Head Without Contrast 10/16/2014 [...] Oct 16 2014 6:08AM Referring Provider Line: [phone] E ID: [id number] PROBLEM LIST ASSESSMENT & [...] iscussion. CM routed updated medical notes to [facility] and [place]. PT recommending SNF. CM spoke w/ Tyler at [facility] and Mary Beth at [place], efaxed updated medical information, grace th are [...] at this time; planned for placement in [place] once patient is off sitter for 48 hrs. Otherwise patient continues to interact appropriately at this time and no impulsiveness is shown. Patient is mostly in chair or in bed and sleeping. 10/27 pt is alert today, no complications. Continue with PT. Pt without sitter. Pending plac ement still. 10/28 planning re-evaluation of patient's status for admission to [place]. Pt otherwise is not impulsive, mostly calm [...] this encounter Progress Notes Emilie Sutherland MS CCC-CARD FIXER - 10/29/2014 3:00 PM PSTFormatting of this note might be diffe rent from the original. Therapy Progress Note by Emilie Sutherland MS CCC-CARD FIXER at 10/29/14 1500 Author: MS LINNETTE Ty Service: (none) Author Type: Speech Therapist Filed: 10/29/14 1502 Date of Service: 10/29/14 1500 Status: Signed Rig Builder Helper: MS MARLI TyCARD FIXER (Speech Therapist) 10/29/14 1500 CARD FIXER Last Visit CARD FIXER Received On 10/29/14 Requires CARD FIXER Follow Up No pt is being discharged from the hospital shortly. onversion T ransaction, Provider Unknown - 10/29/2014 11:18 AM PSTFormatting of this note might be diffe rent from the original. Case Management by TABITHA Armstrong at 10/29/14 1118 Author: TABITHA Armstrong Service: (none) Author Type: African History Professor Filed: 10/29/14 1119 Date of Service: 10/29/141117 Status: Signed Rig Builder Helper: TABITHA Armstrong (African History Professor) CM faxed MD's discharge orders to [facility] and arranged for a copy of pt's chart to be sent with pt. CM arranged for ambulance transport due to pt's confusion and risk of re-in jury of Subdural Hematoma/Craniotomy . CM notified pt & family of the discharge time. Pt had no other resource concerns. Discharge Plan: [facility] Jem Modiclementina NOEL onver alem Transaction, Provider Unknown - 10/29/2014 10:35 AM PST Therapy Progress Note by ИВАН Elaine at 10/29/14 1035 Author: ИВАН Elaine Service: (none) Author Type: Massage Therapist Filed: 10/29/14 1035 Date of Service: 10/29/14 1035 Status: Signed Rig Builder Helper: ИВАН Elaine (Massage Therapist) 10/29/14 1035 Massage Therapy Interventions Locations Back;Neck;Shoulder Massage Therapy Technique Effleurage;Petrissage;Australian massage Response to treatment Decreased muscle tension onver alem Transaction, Provider Unknown - 10/29/2014 10:05 AM PST Nurse Progress Note by Angelina Meade RN at 10/29/14 1005 Author: Angelina Meade RN Service: (none) Author Type: Registered Nurse Filed: 10/29/14 1044 Date of Service: 10/29/14 1005 Status: Signed Rig Builder Helper: Angelina Meade RN (Registered Nurse) Report given to MICHELL Corral at [place] Dorcas Willett, PT - 10/29/2014 9:20 AM PSTFormatting of this note might be different from t he original. Therapy Progress Note by Dorcas Holguin PT at 10/29/14919 Author: Dorcas Holguin PT Service: (none) Author Type: Physical Therapist Filed: 10/29/14 1112 Date of Service: 10/29/14919 Status: Signed Rig Builder Helper: Dorcas Holguin PT (Physical Therapist) 10/29/14919 PT Last Visit PT Received On 10/29/14 Reason for Treatment Brain injury Requires PT Follow Up Yes Follow up PT Only? No Focus for Next Treatment Formal Balance Assessment PT Eval/Reassessment Date 10/29/14 Assistance Required 2 person Nurse Special Needed No Precautions Other Precautions helmet when [...] Barriers to Discharge Physical Deficits Impacting Functional [place];Self-care Deficit s Impacting Functional [place] Recommendation Comments Pt may be discharging to SNF today if ready. Cecilio Briones MD - 10/28/2014 3:03 PM PST . Progress Notes by Cecilio Bravo MD at 10/28/14 7959 Author: Cecilio Bravo MD Service: Hospitalist Author Type: Physician Filed: 10/28/14 1504 Date of Service: 10/28/141502 Status: Signed Rig Builder Helper: Cecilio Bravo MD (Physician) [facility] Service: Hospitalist Progress Note Hospital Day: LOS: 17 days Post-Op Day: 11 Days Post-Op SUBJECTIVE Patient Summary: Per ICU note: The patient is a 53 y.o. male with significant past medical history of chronic alcohol abus e and multiple falls. Per ED report from [facility]: he was drinking earlier today at home and fell twice. He went to bed and then he was noted to be having what they thought was seizure activity and th ey could not wake him and called EMS. He was taken to the ED at [facility] in [place] a nd then transferred to the ED [...] and multiple falls who was transferred from [facility] due to a fall, seizures . [...] placement to improve s trength and mobility. net software engineer are working on finding placement which [...] Oct 17 2014 7:38AM Referring Provider Line: [phone] ID: [id number] Ct Head Without Contrast 10/16/2014 [...] Oct 16 2014 6:08AM Referring Provider Line: [phone] E ID: [id number] PROBLEM LIST ASSESSMENT & [...] routed updated medical notes to [facility] and [place]. PT recommending SNF. CM spoke w/ Tyler at [facility] and Mary Beth at [place], efaxed updated medical information, grace th are [...] at this time; planned for placement in [place] once patient is off sitter for 48 hrs. Otherwise patient continues to interact appropriately at this time and no impulsiveness is shown. Patient is mostly in chair or in bed and sleeping. 10/27 pt is alert today, no complications. Continue with PT. Pt without sitter. Pending plac ement still. 10/28 planning re-evaluation of patient's status for admission to [place]. Pt otherwise is not impulsive, mostly calm [...] Bravo MD 10/28/2014 Maria Teresa Dhillon MA, CCC-CARD FIXER - 10/27/2014 4:14 PM PST Therapy Progress Note by Maria Teresa Lucas, MS CFY-CARD FIXER at 10/27/141613 Author: Maria Teresa Lucas MS CFY-CARD FIXER Service: (none) Author Type: Speech Therapist Filed: 10/27/141613 Date of Service: 10/27/141613 Status: Signed Rig Builder Helper: Maria Teresa Lucas MS CFY-CARD FIXER (Speech and Language Pathologist) 10/27/14 1600 Swallowing Assessment Eval Swallowing Treatment Yes Consistencies Consistencies Assessed Yes Thin Presentation Cup;Self Fed Oral Phase Thin WFL Pharyngeal Phase Cough - immediate;Delayed swallow initiated;Decreased laryngeal elevation upon palpation [place] Presentation Self Fed;Cup Oral WFL Pharyngeal Phase No overt signs or symptoms of aspiration Dysphagia Mechanically Altered Presentation Spoon Oral Phase WFL Pharyngeal Phase No overt signs or symptoms of aspiration;Cough - Delayed (pt required cues to swallow - pt very agitated during trials) Recommendations Liquids Consistency Recommendations [place] thick Diet Consistency Recommendation Pureed Recommendations Dysphagia [...] Goals Pt will have safe/efficient oral intake [place] thick liquids;Puree diet;With feeding sherley t;Goal progressing Pt will tolerate diet upgrade trials With 1:1 supervision;Goal progressing onver alem Transaction, Provider Unknown - 10/27/2014 2:10 PM PST Therapy Progress Note by Katherin Garay PT at 10/27/14 1410 Author: Katherin Garay PT Service: (none) Author Type: Physical Therapist Filed: 10/27/14 8284 Date of Service: 10/27/14 1410 Status: Signed Rig Builder Helper: Katherin Garay PT (Physical Therapist) 10/27/14 1410 PT Last Visit PT Received On 10/27/14 Reason for Treatment Brain injury (TBI R SDH) Requires PT Follow Up Yes Follow up PT Only? Yes Assistance Required 2 person Nurse Special Needed No Precautions Other Precautions helmet when [...] Barriers to Discharge Physical Deficits Impacting Functional [place];Self-care Deficit s Impacting Functional [place] onver alem Farrellaction, Provider Unknown - 10/27/2014 11:15 AM PST Therapy Progress Note by CADEN Mcgowan at 10/27/14 1115 Author: CADEN Mcgowan Service: (none) Author Type: Occupational Therapist Filed: 10/27/14 1230 Date of Service: 10/27/14 1115 Status: Signed Rig Builder Helper: CADEN Mcgowan (Occupational Therapist) 10/27/14 1115 OT Last Visit OT Received On 10/27/14 Reason for Treatment Brain injury Requires OT Follow Up Yes Assistance Required 2 person Nurse Special Needed No Family/Caregiver Present No Precautions Other [...] Acute OT;SNF Equipment Recommended Shower chair with back;Driver Wheelchair;HHSH;Bedside commode Education Completed: Education Topic: ADLs, fine [...] commode, shower chair, hand held shower head, 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 male with significant past medical history of chronic alcohol abus e and multiple falls. Per ED report from [facility]: he was drinking earlier today at home and fell twice. He went to bed and then he was noted to be having what they thought was seizure activity and th robbie could not wake him and called EMS. He was taken to the ED at [facility] in [place] a nd then transferred to the ED [...] and multiple falls who was transferred from [facility] due to a fall, seizures . [...] placement to improve s trength and mobility. net software engineer are working on finding placement which [...] since transfer from ICU. Pending bed placement. Nraciso sweeney is considering pt at this time. [...] Oct 17 2014 7:38AM Referring Provider Line: [phone] ID: [id number] Ct Head Without Contrast 10/16/2014 [...] Oct 16 2014 6:08AM Referring Provider Line: [phone] E ID: [id number] PROBLEM LIST ASSESSMENT & [...] iscussion. CM routed updated medical notes to [facility] and [place]. PT recommending SNF. CM spoke w/ Tyler at [facility] and Mary Beth at [place], efaxed updated medical information, grace th are [...] Full Code Cecilio Bravo MD 10/27/2014 att, CADEN Wolf - 10/26/2014 4:31 PM PSTFormatting of this note might be different from the o jennifer. Therapy Progress Note by CADEN Narvaez at 10/26/14 3341 Author: CADEN Narvaez Service: (none) Author Type: Occupational Therapist Filed: 10/26/14 6484 Date of Service: 10/26/14 1631 Status: Signed Rig Builder Helper: Shannon M Malena, OTR/L (Occupational Therapist) 10/26/14 1600 Time Calculation Start Time 1600 Stop Time 1615 Time Calculation (min) 15 min $ ADLs/IADLs ADLS/IADLS Charges Home management training $Home Management Training 8-22 mins Therapy Time 15 Minutes 10/26/14 1600 OT Last Visit OT Received On 10/26/14 Reason for Treatment Brain injury Requires OT Follow Up Yes Assistance Required 2 person Nurse Special Needed No Family/Caregiver Present No Precautions Other [...] his mouth. about 4 rounds of gentle fbidh-bpyu-nu awakened. Activity Tolerance Activity Tolerance Patient limited [...] elevated Grooming Final Score 5 Comprehension (in lime language) 3 - Patient requires moderate assist to comprehend DUE TO? needing parts of sentences repea stephenie 2 - Patient requires maximal assist to comprehend DUE TO? only understanding simple express ions Comprehension Final Score 2 - Maximal assistance Expression (in lime language) 2 - Patient requires maximal assist [...] Date of Service: 10/26/14 1554 Status: Signed Rig Builder Helper: CADEN Narvaez (Occupational Therapist) Chart opened in error onversion Transa ction, Provider Unknown - 10/26/2014 1:34 PM PST Progress Notes by Anna Venegas RD at 10/26/14 1078 Author: Anna Venegas RD Service: (none) Author Type: Registered Dietitian Filed: 10/26/14 7817 Date of Service: 10/26/14 6074 Status: Signed Rig Builder Helper: Anna Venegas RD (Doyle Dietitian) Nutrition Follow-Up [...] on current weight of 85 kg Kcal: 0294-6700 (25-30 kcal/kg) Protein: 102-128 gr (1.2-1.5 gr/kg) [...] (none) Author Type: Physical Therapist Filed: 10/26/14 3213 Date of Service: 10/26/14 1313 Status: Signed Rig Builder Helper: Thalia Simmons PT (Physical Therapist) 10/26/14 1313 [...] Date of Service: 10/26/14 1018 Status: Signed Rig Builder Helper: ИВАН Elaine (Massage Therapist) 10/26/14 1018 Massage Therapy Interventions Locations Back;Neck;Shoulder Massage Therapy Technique Effleurage;Petrissage;Australian massage Response to treatment Decreased muscle tension;Decreased pain tNatalee gardner MS CCC-CARD FIXER - 10/26/2014 10:14 AM PST Therapy Progress Note by Natalee Plata MS CCC-CARD FIXER at 10/26/14 1014 Author: Natalee Plata MS CCC-CARD FIXER Service: (none) Author Type: Speech and Language Pathologist Filed: 10/26/14 1014 Date of Service: 10/26/144 Status: Signed Rig Builder Helper: Natalee Plata MS CCC-CARD FIXER (Speech and Language Pathologist) 10/26/1445 Swallowing Assessment Eval Swallowing Treatment Yes Initial Swallow Assessment Behavior/Cognition Cooperative;Neuro impairment Patient Positioning Upright in chair Consistencies Consistencies Assessed Yes Thin Presentation Cup;Self Fed Oral Phase Thin WFL Pharyngeal Phase Cough - immediate [place] Presentation Cup;Self Fed Oral WFL Pharyngeal Phase No overt signs or symptoms of aspiration Dysphagia Mechanically Altered Presentation Spoon Oral Phase WFL Pharyngeal Phase No overt signs or symptoms of aspiration Dysphagia Advanced Presentation Spoon Oral Phase WFL Pharyngeal Phase No overt signs or symptoms of aspiration Recommendations Liquids Consistency Recommendations [place] thick Diet Consistency Recommendation Pureed Recommendations Dysphagia [...] treatment;Continue with current plan Natalee Plata MS CCC-CARD FIXER Me shari Douglas PT - 10/26/2014 8:58 AM PSTFormatting of this note might be different from the madelin booker. Therapy Progress Note by Thalia Simmons PT at 10/26/14 Author: Thalia Smimons PT Service: (none) Author Type: Physical Therapist Filed: 10/26/1437 Date of Service: 10/26/1458 Status: Signed Rig Builder Helper: Thalia Troy, PT (Physical Therapist) 10/26/14 0858 PT Last Visit PT Received On 10/26/14 Reason for Treatment Brain injury (SDH. bone flap removed) Requires PT Follow Up Yes Follow up PT Only? Yes Assistance Required 2 person Nurse Special Needed No Precautions Other Precautions helmet on [...] Barriers to Discharge Physical Deficits Impacting Functional [place];Self-care Deficit s Impacting Functional [place];Neurological Impairment (see comment);Pain VS: 117/82 87 98% ra Cecilio Briones MD - 10/26/2014 8:09 AM PST Progress Notes by Cecilio Bravo MD at 10/26/14 0809 Author: Cecilio Bravo MD Service: Hospitalist Author Type: Physician Filed: 10/26/14 6703 Date of Service: 10/26/14808 Status: Signed Rig Builder Helper: Cecilio Bravo MD (Physician) [facility] Service: Hospitalist Progress Note Hospital Day: LOS: 15 days Post-Op Day: 11 Days Post-Op SUBJECTIVE Patient Summary: Per ICU note: The patient is a 53 y.o. male with significant past medical history of chronic alcohol abus e and multiple falls. Per ED report from [facility]: he was drinking earlier today at home and fell twice. He went to bed and then he was noted to be having what they thought was seizure activity and th ey could not wake him and called EMS. He was taken to the ED at [facility] in [place] a nd then transferred to the ED [...] and multiple falls who was transferred from [facility] due to a fall, seizures . [...] placement to improve s trength and mobility. net software engineer are working on finding placement which [...] Oct 17 2014 7:38AM Referring Provider Line: [phone] ID: [id number] Ct Head Without Contrast 10/16/2014 [...] Oct 16 2014 6:08AM Referring Provider Line: [phone] E ID: [id number] PROBLEM LIST ASSESSMENT & [...] iscussion. CM routed updated medical notes to [facility] and [place]. PT recommending SNF. CM spoke w/ Tyler at [facility] and Mary Beth at [place], efaxed updated medical information, grace th are [...] this time for planned for placement in [place] once patient is off sitter for 48 [...] Full Code Cecilio Bravo MD 10/26/2014 Cecilio Mnotaño MD - 10/25/2014 4:24 PM PSTFormatting of this note might be different from the o riginal. Progress Notes by Cecilio Bravo MD at 10/25/14 4691 Author: Cecilio Bravo MD Service: Hospitalist Author Type: Physician Filed: 10/25/14 2845 Date of Service: 10/25/141623 Status: Signed Rig Builder Helper: Cecilio Bravo MD (Physician) [facility] Service: Hospitalist Progress Note Hospital Day: LOS: 14 days Post-Op Day: 11 Days Post-Op SUBJECTIVE Patient Summary: Per ICU note: The patient is a 53 y.o. male with significant past medical history of chronic alcohol abus e and multiple falls. Per ED report from [facility]: he was drinking earlier today at home and fell twice. He went to bed and then he was noted to be having what they thought was seizure activity and th ey could not wake him and called EMS. He was taken to the ED at [facility] in [place] a nd then transferred to the ED here for emergent neurosurgical evaluation for large acute rig ht SDH with 2 cm midline shift. He was admitted to the ICU post-op craniectomy and yosef drains x2. by Dr. Deglado still intu bated and comatose off sedation [...] and multiple falls who was transferred from [facility] due to a fall, seizures . [...] placement to improve s trength and mobility. net software engineer are working on finding placement which [...] Oct 17 2014 7:38AM Referring Provider Line: [phone] ID: [id number] Ct Head Without Contrast 10/16/2014 [...] Oct 16 2014 6:08AM Referring Provider Line: [phone] E ID: [id number] PROBLEM LIST ASSESSMENT & [...] iscussion. CM routed updated medical notes to [facility] and [place]. PT recommending SNF. CM spoke w/ Tyler at [facility] and [facility] at [place], efaxed updated medical information, grace th are [...] Cecilio Bravo MD 10/25/2014 Lin Richardson MS CCC-CARD FIXER - 10/25/2014 3:31 PM PST Therapy Progress Note by Emiile Sutherland MS CCC-CARD FIXER at 10/25/14 4208 Author: Emilie Sutherland MS CCC-CARD FIXER Service: (none) Author Type: Speech Therapist Filed: 10/25/14 1532 Date of Service: 10/25/14 1531 Status: Signed Rig Builder Helper: Emilie Sutherland MS CCC-CARD FIXER (Speech Therapist) 10/25/14 1531 CARD FIXER Last Visit CARD FIXER Received On 10/25/14 Requires CARD FIXER Follow Up Unavailable (pt asleep and has been very agitated.) per sitter no coughing during meals and seem content with NT liquids Tamiok Zaragoza PT - 10/25/2014 11:45 AM PSTFormatting of this note might be different from the velasquez garsia Therapy Progress Note by Trina Maldonado PT at 10/25/14 1145 Author: Trina Maldonado PT Service: (none) Author Type: Physical Therapist Filed: 10/25/14 1242 Date of Service: 10/25/14 1145 Status: Signed Rig Builder Helper: Trina Maldonado PT (Physical Therapist) 10/25/14 1145 PT Last Visit PT Received On 10/25/14 Reason for Treatment Brain injury (right SDH) Requires PT Follow Up Yes Follow up PT Only? Yes Assistance Required 2 person Nurse Special Needed No Precautions Other Precautions helmet for [...] Author: TABITHA Armstrong Service: (none) Author Type: African History Professor Filed: 10/25/14 1003 Date of Service: 10/25/14 1002 Status: Signed Rig Builder Helper: TABITHA Armstrong (African History Professor) CM received a phone call from Loan at [facility] who agreed to accept pt once he dem onstrates he does not require a sitter for 48hrs. Jem NOEL onver alem Transaction, Provider Unknown - 10/24/2014 2:43 PM PST Case Management by TABITHA Armstrong at 10/24/14 1443 Author: TABITHA Armstrong Service: (none) Author Type: African History Professor Filed: 10/24/14 1456 Date of Service: 10/24/14 1443 Status: Signed Rig Builder Helper: TABITHA Armstrong (African History Professor) CM phoned both [facility] & [facility] to see if they can accept pt. [facility] declined to accept pt. [facility] is still considering him. CM faxed a referral to [facility] as well. Jem NOEL Camille Montaño MD - 10/24/2014 2:00 PM PSTFormatting of this note might be different from marylou cook original. Progress Notes by Cecilio Bravo MD at 10/24/14 1400 Author: Cecilio Bravo MD Service: Hospitalist Author Type: Physician Filed: 10/24/14 1401 Date of Service: 10/24/14 1400 Status: Signed Rig Builder Helper: Cecilio Bravo MD (Physician) [facility] Service: Hospitalist Progress Note Hospital Day: LOS: 13 days Post-Op Day: 11 Days Post-Op SUBJECTIVE Patient Summary: Per ICU note: The patient is a 53 y.o. male with significant past medical history of chronic alcohol abus e and multiple falls. Per ED report from [facility]: he was drinking earlier today at home and fell twice. He went to bed and then he was noted to be having what they thought was seizure activity and th robbie could not wake him and called EMS. He was taken to the ED at [facility] in [place] a nd then transferred to [...] and multiple falls who was transferred from [facility] due to a fall, seizures . [...] placement to improve s trength and mobility. net software engineer are working on finding placement which may take few days, however if accepted then can be discharged for rehabilitation Events Overnight: 2/2 pt still somewhat confused, thought he was in [place]. He knew that he fell, but didn [...] Oct 17 2014 7:38AM Referring Provider Line: [phone] ID: [id number] Ct Head Without Contrast 10/16/2014 [...] Oct 16 2014 6:08AM Referring Provider Line: [phone] E ID: [id number] PROBLEM LIST ASSESSMENT & [...] iscussion. CM routed updated medical notes to [facility] and [facility]. PT recommending SNF. CM spoke w/ Tyler at [facility] and Mary Beth at [facility], efaxed updated medical information, grace th are [...] Bravo MD 10/24/2014 ovarrubi Jessica ospina MA, CCC-CARD FIXER - 10/24/2014 11:48 AM PST Therapy Progress Note by Jessica Headley MA CCC-CARD FIXER at 10/24/14 4640 Author: Jessica Headley MA CCC-CARD FIXER Service: (none) Author Type: Speech and Language Pathologist Filed: 10/24/14 1141 Date of Service: 10/24/141147 Status: Signed Rig Builder Helper: Jessica Headley MA CCC-CARD FIXER (Speech and Language Pathologist) 10/24/14 112 Swallowing Assessment Eval Swallowing Treatment Yes Initial Swallow Assessment Behavior/Cognition Cooperative;Alert Consistencies Consistencies Assessed Yes Thin Presentation Cup;Spoon Oral Phase Thin WFL Pharyngeal Phase Cough - immediate (immediate coughing with thins via cup) [place] Presentation Cup;Self Fed Oral WFL Pharyngeal Phase No overt signs or symptoms of aspiration Puree Presentation Spoon Oral Phase WFL Pharyngeal No overt signs or symptoms of aspiration;Delayed Swallow Recommendations Liquids Consistency Recommendations [place] thick Diet Consistency Recommendation Pureed Recommendations Dysphagia [...] Goals Pt will have safe/efficient oral intake [place] thick liquids;Puree diet;With feeding sherley t;Goal progressing Pt will tolerate diet upgrade trials With 1:1 supervision;Goal progressing onver alem Willard, Provider Unknown - 10/24/2014 10:07 AM PST Therapy Progress Note by ИВАН Elaine at 10/24/14 1007 Author: ИВАН Elaine Service: (none) Author Type: Massage Therapist Filed: 10/24/141006 Date of Service: 10/24/14 1007 Status: Signed Rig Builder Helper: ИВАН Elaine (Massage Therapist) 10/24/14 1007 Massage Therapy Interventions Locations Back;Neck;Shoulder Massage Therapy Technique Effleurage;Petrissage;Australian massage Response to treatment Decreased muscle tension Camille Montaño MD - 10/23/2014 4:38 PM PSTFormatting of this note might be different from marylou cook original. Progress Notes by Cecilio Bravo MD at 10/23/14 1638 Author: Cecilio Bravo MD Service: Hospitalist Author Type: Physician Filed: 10/23/14 1641 Date of Service: 10/23/141637 Status: Signed Rig Builder Helper: Cecilio Bravo MD (Physician) [facility] Service: Hospitalist Progress Note Hospital Day: LOS: 12 days Post-Op Day: 11 Days Post-Op SUBJECTIVE Patient Summary: Per ICU note: The patient is a 53 y.o. male with significant past medical history of chronic alcohol abus e and multiple falls. Per ED report from [facility]: he was drinking earlier today at home and fell twice. He went to bed and then he was noted to be having what they thought was seizure activity and th ey could not wake him and called EMS. He was taken to the ED at [facility] in [place] a nd then transferred to the ED [...] and multiple falls who was transferred from [facility] due to a fall, seizures . [...] placement to improve s trength and mobility. net software engineer are working on finding placement which may take few days, however if accepted then can be discharged for rehabilitation Events Overnight: 2/2 pt still somewhat confused, thought he was in [place]. He knew that he fell, but didn [...] Oct 17 2014 7:38AM Referring Provider Line: [phone] ID: [id number] Ct Head Without Contrast 10/16/2014 [...] Oct 16 2014 6:08AM Referring Provider Line: [phone] E ID: [id number] PROBLEM LIST ASSESSMENT & [...] iscussion. CM routed updated medical notes to [facility] and [facility]. PT recommending SNF. CM spoke w/ Tyler at [facility] and Mary Beth at [facility], efaxed updated medical information, grace th are [...] Date of Service: 10/23/14 1634 Status: Signed Rig Builder Helper: Yeimi Ruiz RN (Registered Nurse) CM received a call from Sherry who is the Community Health Nurse from the [facility]. ([phone] and fax [phone]) She states that she can assist with [...] Date of Service: 10/23/14 1140 Status: Signed Rig Builder Helper: Amara Duran PT (Physical Therapist) 10/23/14 1140 PT Last Visit PT Received On 10/23/14 Reason for Treatment Brain injury (right SDH) Requires PT Follow Up Yes Follow up PT Only? Yes Focus for Next Treatment Formal Balance Assessment;Bed Mobility Technique;Transfer Techniqu e Assistance Required 2 person Nurse Special Needed No Precautions Other Precautions kye for [...] Barriers to Discharge Physical Deficits Impacting Functional [place] Recommendation Comments Pt. continues to require maximal assist for all mobility needs. Sebastian l need further skilled PT to address deficits prior to return home. onver alem Willard, Provider Unknown - 10/23/2014 11:29 AM PST Therapy Progress Note by ИВАН Poole at 10/23/14 1129 Author: ИВАН Poole Service: (none) Author Type: Massage Therapist Filed: 10/23/14 1130 Date of Service: 10/23/14 112 Status: Signed Rig Builder Helper: ИВАН Poole (Massage Therapist) 10/23/14 1100 Massage Therapy Interventions Locations Back;Neck;Shoulder Massage Therapy Technique Effleurage;Petrissage;Australian massage;Trigger point Response to treatment Decreased pain;Decreased [...] 10/22/141825 Date of Service: 10/22/141810 Status: Signed Rig Builder Helper: Cecilio Bravo MD (Physician) [facility] Service: Hospitalist Progress Note Hospital Day: LOS: 11 days Post-Op Day: 11 Days Post-Op SUBJECTIVE Patient Summary: Per ICU note: The patient is a 53 y.o. male with significant past medical history of chronic alcohol abus e and multiple falls. Per ED report from [facility]: he was drinking earlier today at home and fell twice. He went to bed and then he was noted to be having what they thought was seizure activity and th robbie could not wake him and called EMS. He was taken to the ED at [facility] in [place] a nd then transferred to the ED [...] and multiple falls who was transferred from [facility] due to a fall, seizures . [...] placement to improve s trength and mobility. net software engineer are working on finding placement which may take few days, however if accepted then can be discharged for rehabilitation Events Overnight: 2/2 pt still somewhat confused, thought he was in [place]. He knew that he fell, but didn [...] Oct 17 2014 7:38AM Referring Provider Line: [phone] ID: 004 Ct Head Without Contrast 10/16/2014 [...] Oct 16 2014 6:08AM Referring Provider Line: [phone] E ID: [id number] PROBLEM LIST ASSESSMENT & [...] iscussion. CM routed updated medical notes to [facility] and [facility]. PT recommending SNF. CM spoke w/ Tyler at [facility] and Mary Beth at [facility], efaxed updated medical information, grace th are [...] Cecilio Bravo MD 10/22/2014 Lin Richardson MS CCC-CARD FIXER - 10/22/2014 3:22 PM PST Therapy Progress Note by Emilie Sutherland MS CCC-CARD FIXER at 10/22/14 1522 Author: Emilie Sutherland MS CCC-CARD FIXER Service: (none) Author Type: Speech Therapist Filed: 10/22/14 1522 Date of Service: 10/22/14 1522 Status: Signed Rig Builder Helper: Emilie Sutherland MS CCC-CARD FIXER (Speech Therapist) 10/22/14 4579 CARD FIXER Last Visit CARD FIXER Received On 10/22/14 Requires CARD FIXER Follow Up Unavailable (attempted pt just given pain meds, very tired) Attempted to do trials, however pt every difficulty to keep wake. onversion T ransaction, Provider Unknown - 10/22/2014 3:15 PM PSTFormatting of this note might be diffe rent from the original. Case Management by TABITHA Dejesus at 10/22/14 9069 Author: TABITHA Dejesus Service: (none) Author Type: Wood Hacker Filed: 10/22/14 1525 Date of Service: 10/22/145 Status: Addendum Rig Builder Helper: TABITHA Dejesus (Wood Hacker) Related Notes: Original Note by TABITHA Dejesus (Wood Hacker) filed at 10/22/14 1058 CM attempted to meet pt for d/c planning. CM could not arouse pt for discussion. CM route d updated medical notes to [facility]. PT recommending SNF. CM spoke w/ Tyler at [facility] and Mary Beth at [facility], efaxed updated medical information, both are looking [...] Date of Service: 10/22/14 1435 Status: Addendum Rig Builder Helper: Jennifer Alberts RD (Registered Dietitian) Related Notes: [...] time; Cr .65 (L). Nutrition-focused physical findings: CARD FIXER following for dysphagia. Diet order/current intake: Pureed, [...] offered daily. Recommendations: 1. Continue diet per CARD FIXER. 2. Magic cups with meal trays. 3. Monitor pt's weight. 4. Offer high calorie foods on meal trays. Monitoring: Will follow up in 4 days per nutrition protocol. Jennifer Alberts, , design intern, 10/22/14. onver alem Transaction, Provider Unknown - 10/22/2014 9:56 AM PST Therapy Progress Note by Pelon Rose LMP at 10/22/14 0956 Author: ИВАН Elaine Service: (none) Author Type: Massage Therapist Filed: 10/22/14955 Date of Service: 10/22/14955 Status: Signed Rig Builder Helper: ИВАН Elaine (Massage Therapist) 10/22/14955 MT Last [...] 1104 Date of Service: 10/22/14899 Status: Signed Rig Builder Helper: Dorcas Holguin PT (Physical Therapist) 10/22/14899 PT Last Visit PT Received On 10/22/14 Reason for Treatment (R SDH) Requires PT Follow Up Yes Follow up PT Only? Yes Focus for Next Treatment Formal Balance Assessment;Bed Mobility Technique;Transfer Techniqu e PT Eval/Reassessment Date 10/22/14 Assistance Required 2 person Nurse Special Needed No Precautions Other Precautions helmet when [...] oriented to self also remembers RN and PARISH VISITOR;s name. Bed Mobility Rolling Moderate assist Supine [...] advance LLE however leg neal) Assistive Device (LEAD RELAY TESTER on 2 therapists) Static Sitting Balance Static [...] the sherriea l. Progress Notes by Travon Mitchell MD at 10/21/14 0846 Author: Travon Mitchell MD Service: Hospitalist Author Type: Physician Filed: 10/21/14 1411 Date of Service: 10/21/14845 Status: Addendum Rig Builder Helper: Travon Mitchell MD (Physician) Related Notes: Original Note by Travon Mitchell MD (Physician) filed at 10/21/14 14 07 [facility] Service: Hospitalist Progress Note Tony Fortune 53 y.o. [id number] 438/[id number] male PER PT NONE Hospital Day: LOS: 10 days SUBJECTIVE Patient Summary: Patient is a 53 year old male with past medical history of Chronic Alcohol Abuse, Dependenc e and multiple falls who was transferred from [facility] due to a fall, seizures . [...] placement to improve s trength and mobility. net software engineer are working on finding placement which [...] acute distr ess. HEENT: Head: S/P Craniotomy. [place] at midline and temporo parietoccipital area of [...] and followed by Dr. Nj from [facility]. He is making slow progress and [...] Discharge plans to a SNF for rehabilitation. rn manager is working on placement which cou ld be challenging due to [place] Medicaid. His insurance may contribute in the [...] Date of Service: 10/20/14 1533 Status: Signed Rig Builder Helper: ANIA Narvaez/Ibis (Occupational Therapist) 10/20/14 1500 OT [...] 1506 Date of Service: 10/20/14922 Status: Signed Rig Builder Helper: Travon Mitchell MD (Physician) [facility] Service: Hospitalist Progress Note Tony Fortune 53 y.o. [id number] 438/[id number] male PER PT NONE Hospital Day: LOS: 9 days SUBJECTIVE Patient Summary: Patient is a 53 year old male with past medical history of Chronic Alcohol Abuse, Dependenc e and multiple falls who was transferred from [facility] due to a fall, seizures . [...] in acute distress. HEENT: Head: S/P Craniotomy. [place] at midline and temporo parietoccipital area of [...] and now followed by Dr. Nj from [facility] rosurgery services. He is making [...] Discharge plans to a SNF for rehab. rn manager is working on placement which could be [employer] due to [place] Medicaid insurance and may delay the discharge till [facility]. Spent more than 30 minutes reviewing [...] (none) Author Type: Occupational Therapist Filed: 10/19/14 1523 Date of Service: 10/19/14 150 Status: Signed Rig Builder Helper: CADEN Mcgowan (Occupational Therapist) 10/19/14 1501 Precautions Other Precautions helmet on when OOB Home Environment Bathroom Shower/Tub Tub/shower unit;Shower unit with threshold (uses walk in shower) Bathroom Toilet Standard Bathroom Equipment Grab bars in shower/bath Additional Comments Refer to PT note for PLOF Prior Function Level of [place] Independent with functional mobility;Independent with ADLs;Independe nt with IADLs Lives With Sibling(s) (stated living with brother) ADL Assistance Independent Home ADL's Independent ADL Eating Assistance Total (requiring 1:1 for feeding, per PARISH VISITOR) Grooming Assistance Dependent (per PARISH VISITOR) Grooming impacted by Cognitive deficits;Ability to follow [...] for ADLs/IADLs) Equipment Recommended Shower chair with back;Driver Wheelchair;HHSH;Grab bars withing home;Bedside co mmode Education Completed: [...] Mcgowan, FEDERICO 10/19/2014 ovarr Jessica camacho MA, CCC-CARD FIXER - 10/19/2014 2:12 PM PSTFormatting of this note might be differ ent from the original. Therapy Progress Note by Jessica Headley MA CCC-CARD FIXER at 10/19/14 1412 Author: Jessica Headley MA CCC-CARD FIXER Service: (none) Author Type: Speech and Language Pathologist Filed: 10/19/14 1413 Date of Service: 10/19/141411 Status: Signed Rig Builder Helper: Jessica Headley MA CCC-CARD FIXER (Speech and Language Pathologist) 10/19/14 1354 Swallowing Assessment Eval Swallowing Treatment Yes Initial Swallow Assessment Behavior/Cognition Lethargic Consistencies Consistencies Assessed Yes Thin Presentation Spoon;Cup Oral Phase Thin Anterior Spillage Left Pharyngeal Phase Delayed swallow initiated;Spontaneous double swallow;Cough - delayed Puree Presentation Spoon Oral Phase Increased oral holding time Pharyngeal Delayed Swallow;No overt signs or symptoms of aspiration Recommendations Liquids Consistency Recommendations [place] thick Diet Consistency Recommendation Pureed (1-2 snacks [...] Notes by Debora Ott PA-C at 10/19/14 0551 Author: Debora Ott PA-C Service: Neurosurgery Author Type: Physician Emergency Services Director - Ce rtified Filed: 10/19/14 8091 Date of Service: 10/19/141357 Status: Signed Rig Builder Helper: Debora Ott PA-C (Physician Emergency Services Director - Certified) [facility] Service: Neurosurgery Progress Note Hospital Day: LOS: 8 days Post-Op Day: 8 Days Post-Op SUBJECTIVE Patient Summary: s/p craniectomy for large right SDH Events Overnight: Complaining of pain. IPR denied because he lives in [place], antoinette guardado on placement in [place]. Helmet [...] q6 for oral pain control management - [place] need to come out end of next week - FU in neurosurgery clinic in 4 weeks Code Status: Full Code Debora Ott PA-C 10/19/2014 onversio n Transaction, Provider Unknown - 10/19/2014 1:46 PM PSTFormatting of this note might be di fferent from the original. Case Management by TABITHA Armstrong at 10/19/14 5562 Author: TABITHA Armstrong Service: (none) Author Type: African History Professor Filed: 10/19/14 1418 Date of Service: 10/19/14 1346 Status: Addendum Rig Builder Helper: TABITHA Armstrong (African History Professor) Related Notes: Original Note by TABITHA Armstrong (African History Professor) filed at 10/19/14 1347 CM faxed a referral to [facility] in [place] and updated info to [facility] in [facility]. faxed updated info to the [facility] [place]. Jem Flores DOLL WIG MAKER ROOTED HAIR Marco , Travon Tobar MD - 10/19/2014 1:40 PM PSTFormatting of this note might be different from t regina original. Progress Notes by Travon Mitchell MD at 10/19/14 1340 Author: Travon Mitchell MD Service: Hospitalist Author Type: Physician Filed: 10/19/14 1348 Date of Service: 10/19/14 1340 Status: Signed Rig Builder Helper: Travon Mitchell MD (Physician) [facility] Service: Hospitalist Progress Note Tony Fortune 53 y.o. [id number] 438/[id number] male PER PT NONE Hospital Day: LOS: 8 days SUBJECTIVE Patient Summary: Patient is a 53 year old male with past medical history of Chronic Alcohol Abuse, Dependenc e and multiple falls who was transferred from [facility] due to a fall, seizures . [...] in acute distress. HEENT: Head: S/P Craniotomy. [place] at midline and temporo parietoccipital area of [...] and now followed by Dr. Nj from [facility] rosurgery services. He is making [...] when stable to a SNF for rehab. rn manager is working on placement which could be a challenge due to his insurance of [place] Medicaid. This may also delay his discha [...] (none) Author Type: Physical Therapist Filed: 10/19/14 1316 Date of Service: 10/19/14 1150 Status: Signed Rig Builder Helper: Thalia Simmons PT (Physical Therapist) 10/19/14 1151 [...] Author: Crissy Maldonado Service: (none) Author Type: Bowie Filed: 10/19/141056 Date of Service: 10/19/141055 Status: Signed Rig Builder Helper: Crissy Maldonado I attempted to meet with the patient to discuss who his PCP is, however he was in patient c are. Crissy Maldonado-GPS Patient Registration Clerk Wing Lewis Perry MD - 10/19/2014 9:01 AM PSTFormatting of this note might be different from the origi nal. Progress Notes by Wing Lewis Argueta MD at 10/19/14900 Author: Wing Lewis Argueta MD Service: (none) Author Type: Physician Filed: 10/19/14901 Date of Service: 10/19/14900 Status: Signed Rig Builder Helper: Wing Lewis Argueta MD (Physician) Patient seen [...] 10/19/148 Date of Service: 10/19/14445 Status: Signed Rig Builder Helper: Rosa Lassiter RN (Registered Nurse) Patient transported [...] Ott PA-C Service: Neurosurgery Author Type: Physician Emergency Services Director - Ce rtified Filed: 10/18/14 1435 Date of Service: 10/18/14 1432 Status: Signed Rig Builder Helper: Debora Ott PA-C (Physician Emergency Services Director - Certified) [facility] Service: Neurosurgery Progress Note Hospital Day: [...] by Maye Saleem RD, CD at 10/18/14 1157 Author: Maye Saleem RD, CD Service: (none) Author Type: Registered Dietitian Filed: 10/18/14 6492 Date of Service: 10/18/14 1150 Status: Signed Rig Builder Helper: Maye Saleem RD, CD (Registered Dietitian) Nutrition Follow-Up High-risk follow-up. Assessment: Has been very lethargic. Continues to have right-sided hemiparesis. Nutritionally pertinent labs: Electrolytes, BUN, and Cr are WNL. BG has been variable in th e 100s, no insulin ordered at this time. Nutrition-focused physical findings: Skin is intact. CARD FIXER continues to follow due to dysphag ia. Diet order/current intake: Puree snacks, 1-2 items per meal tray TID plus nectar thick liqu ids by spoon only. Per RN, pt had Sinhala toast and yogurt this morning and finished 95%. On IV fluids of NS at 30 mL/hr. Continues to receive folic acid and thiamine supplementatio n. Nutrition Diagnosis: Increased kcal/protein requirements related to catabolic illness and healing as evidenced b y TBI. Intervention: Continue diet per CARD FIXER recommendations. 1:1 feeds with all meals. Magic Cups to be sent with meal trays. Will monitor wt trend and f/u to provide further nutrition recs based on clinical course. Goal: PO intake will be adequate to meet pt's estimated nutritional requirements. Recommendations: 1) Continue diet per CARD FIXER. 2) Magic Cups with meal trays. Monitoring: Will follow up in 4 days or as indicated. Maye Saleem RD, CD, [facility] 10/18/2014 onver alem Transaction, Provider Unknown - 10/18/2014 11:07 AM PST Therapy Progress Note by Flaquito Platt PT at 10/18/14 1107 Author: Flaquito Platt PT Service: (none) Author Type: Physical Therapist Filed: 10/18/14 8432 Date of Service: 10/18/14 110 Status: Signed Rig Builder Helper: Flaquito Platt PT (Physical Therapist) 10/18/14 1107 [...] his overall lethargy. Pt likely could benefit [facility] SNF at this time to focus on improving his deficits to improve overall function and mobili ty. Pt likely would have difficult tolerating 3 hours of IPR therapy services each day due t o his overwhelming fatigue. onver alem Willard, Provider Unknown - 10/18/2014 9:13 AM PST Therapy Progress Note by DAYANARA Ross-CARD FIXER at 10/18/14912 Author: Mere Hardy MA CFY-CARD FIXER Service: (none) Author Type: Speech and Language Patholo gist Filed: 10/18/14912 Date of Service: 10/18/14912 Status: Signed Rig Builder Helper: DAYANARA Ross-CARD FIXER (Speech and Language Pathologist) 10/18/14844 Swallowing Assessment Eval Swallowing Treatment Yes Initial Swallow Assessment Respiratory Status Room air Behavior/Cognition Requires cueing;Doesn't follow directions;Lethargic Dentition Adequate Vision Impaired for self-feeding Patient Positioning Upright in bed Volitional Cough Strong Consistencies Consistencies Assessed Yes Ice Chips Presentation Spoon Oral Phase Increased holding time Pharyngeal Phase No overt signs or symptoms of aspirations;Delayed swallow initiation [place] Presentation Cup Oral WFL;Increased Anterior to Posterior Transit Pharyngeal Phase Delayed swallow initiated;No overt signs or symptoms of aspiration;Decreas ed laryngeal elevation upon palpation Dysphagia Mechanically Altered Presentation Spoon Oral Phase Prolonged mastication;Increased holding time Pharyngeal Phase Cough - Delayed (cueing needed to swallow) Recommendations Liquids Consistency Recommendations [place] thick Diet Consistency Recommendation Pureed;Other (comment) (1-2 [...] khadijah Dysphagia Goals Shelter Goals Safe/efficient oral intake Pt will have safe/efficient oral intake [place]ound[place] thick liquids Pt will advanced diet in 3 days;Goal progressing Short Term Goals Tolerate diet Pt will tolerate diet upgrade trials With 1:1 supervision;Goal progressing Pt will tolerate diet Puree;with 1:1 supervision;With feeding assist;Goal progressing Mere Hardy MA CFCecily-CARD FIXER 10/18/2014 Travon Lara MD - 10/18/2014 8:36 AM PSTFormatting of this note might be different from lissett tapia original. Progress Notes by Travon Mitchell MD at 10/18/14 0882 Author: Travon Mitchell MD Service: Hospitalist Author Type: Physician Filed: 10/18/14 7453 Date of Service: 01/29/15 0836 Status: Signed Rig Builder Helper: Travon Mitchell MD (Physician) [facility] Service: Hospitalist Progress Note Tony Fortune 53 y.o. [id number] -[id number] male PER PT NONE Hospital Day: LOS: 7 days SUBJECTIVE Patient Summary: Patient is a 53 year old male with past medical history of Chronic Alcohol Abuse, Dependenc e and multiple falls who was transferred from [facility] due to a fall, seizures . [...] Author: TABITHA Sidhu Service: (none) Author Type: African History Professor Filed: 10/17/14 1049 Date of Service: 10/17/14 1048 Status: Signed Rig Builder Helper: TABITHA Sidhu (African History Professor) Faxed updated clinical notes to [facility]. PT still not able to do a thorough eval as pt does not have his helmet yet. onver alem Transaction, Provider Unknown - 10/17/2014 10:38 AM PST Therapy Progress Note by Flaquito Platt PT at 10/17/14 1038 Author: Flaquito Platt PT Service: (none) Author Type: Physical Therapist Filed: 10/17/14 1611 Date of Service: 10/17/14 1038 Status: Signed Rig Builder Helper: Flaquito Platt, PT (Physical Therapist) 10/17/14 1038 [...] OOB mobility assessment Maria Teresa Valdes MA, CCC-CARD FIXER - 10/17/2014 8:36 AM PSTFormatting of this note might be differ ent from the original. Therapy Progress Note by Maria Teresa Lucas MS CFY-CARD FIXER at 10/17/14835 Author: MS KT Hayes-CARD FIXER Service: (none) Author Type: Speech Therapist Filed: 10/17/14835 Date of Service: 10/17/14835 Status: Signed Rig Builder Helper: MS KT Hayes-CARD FIXER (Speech and Language Pathologist) 10/17/14824 Swallowing Assessment Eval Swallowing Treatment Yes Consistencies Consistencies Assessed Yes [place] Presentation Cup Oral WFL;Increased Anterior to Posterior Transit Pharyngeal Phase No overt signs or symptoms of aspiration;Delayed swallow initiated;Decreas ed laryngeal elevation upon palpation;Spontaneous double swallow Recommendations Liquids Consistency Recommendations Mound[place] thick;Other (comments) (by spoon) Diet Consistency Recommendation [...] was observed to be tolerating breakfast before CARD FIXER walked in. Recommend cont. 1 puree snack [...] education;Assessment for upgr khadijah;Swallow strategies Dysphagia Goals Scrap Metal Collector Goals Safe/efficient oral intake;Advanced diet Pt will have safe/efficient oral intake [place]ound[place] thick liquids;Puree diet;Goal progressing Pt will advanced [...] 10/18/1418 Date of Service: 10/17/14818 Status: Signed Rig Builder Helper: Travon Mitchell MD (Physician) [facility] Service: Hospitalist Progress Note Tony Fortune 53 y.o. [id number] -[id number] male PER PT NONE Hospital Day: LOS: 7 days SUBJECTIVE Patient Summary: Patient is a 53 year old male with past medical history of Chronic Alcohol Abuse, Dependenc e and multiple falls who was transferred from [facility] due to a fall, seizures . [...] 10/17/14747 Date of Service: 10/17/14744 Status: Signed Rig Builder Helper: Cyndy Nj MD (Physician) [facility] Service: Neurosurgery Progress Note Hospital Day: [...] Date of Service: 10/16/14 1430 Status: Signed Rig Builder Helper: CADEN Mcgowan (Occupational Therapist) 10/16/14 1430 OT Last Visit OT Received On 10/16/14 Requires OT Follow Up Unavailable (w/PT) Plan to follow up tomorrow for OT evaluation. JAVIER Mcgowan, CSRS 10/16/2014 Shania Howard ARNP - 10/16/2014 2:29 PM PSTFormatting of this note might be different f rom the original. Progress Notes by JENNIFER Small at 10/16/14 1424 Author: JENNIFER Small Service: Warp Tension Tester Author Type: Warp Tension Tester Filed: 10/16/14 1506 Date of Service: 10/16/141428 Status: Signed Rig Builder Helper: JENNIFER Small (Nurse Practitioner) [facility] Service: Warp Tension Tester Progress Note Tony Fortune 53 y.o. Date of Admission: 10/11/2014 Treatment Team: Consulting Physician: Anila Delgado MD Admitting Provider: Harika Apodaca MD CHIEF COMPLAINT: severe TBI, large right SDH with massive midline shift, IC hypertension HISTORY OF PRESENT ILLNESS The patient is a 53 y.o. male with significant past medical history of chronic alcohol abus e and multiple falls. Per ED report from [facility]: he was drinking earlier today at home and fell twice. He went to bed and then he was noted to be having what they thought was seizure activity and th ey could not wake him and called EMS. He was taken to the ED at [facility] in [place] a nd then transferred to the ED [...] FOR BLEED; Surgeon: Anila Delgado MD; Location: [facility] IN OR; Service: Neurosurgery; Laterality: Right; Craniectomy Right 10/11/2014 Procedure: CRANIECTOMY; Surgeon: Anila Delgado MD; Location: [facility] MAIN OR; [...] 14 2014 5:24AM Refe rring Provider Line: [phone] ID: [id number] Xr Chest 1 View 10/14/2014 [...] upper extremities. Orth otics was consultated and [facility] came and measured him for a helmet [...] (none) Author Type: Physical Therapist Filed: 10/16/14 1565 Date of Service: 10/16/141414 Status: Signed Rig Builder Helper: Ki Martinez PT (Physical Therapist) 10/16/14 1415 [...] Author: TABITHA Sidhu Service: (none) Author Type: African History Professor Filed: 10/16/14 1383 Date of Service: 10/16/14 1300 Status: Signed Rig Builder Helper: TABITHA Sidhu (African History Professor) Received t/c from Dayami BRAVO ([phone]). She is requesting PT notes. I informed [...] ca ndidate. I called Doroteo Chamorro for [facility] and she confirmed that [facility] Medicaid requires that pt go to an [place] facility for rehab. Await PT/OT eval. Speech Therapy is already involved. onver alem Transaction, Provider Unknown - 10/16/2014 12:20 PM PST Case Management by TABITHA Sidhu at 10/16/14 1220 Author: TABITHA Sidhu Service: (none) Author Type: African History Professor Filed: 10/16/14 1220 Date of Service: 10/16/14 1220 Status: Signed Rig Builder Helper: TABITHA Sidhu (African History Professor) Placed t/c to [facility] and left message requesting bed availability and acceptance. Await return call. [facility] - Admissions- [phone] onver alem Transaction, Provider Unknown - 10/16/2014 12:01 PM PST Therapy Progress Note by Ki Martinez, PT at 10/16/14 1201 Author: Ki Martinez PT Service: (none) Author Type: Physical Therapist Filed: 10/16/14 1334 Date of Service: 10/16/14 1201 Status: Signed Rig Builder Helper: Ki Martinez PT (Physical Therapist) 10/16/14 1201 PT Last Visit PT Received On 10/16/14 (still awaiting ortho helmet delivery) Requires PT Follow Up Yes;On hold RDWaCyndy peters MD - 10/16/2014 11:22 AM PST Progress Notes by Cyndy Nj MD at 10/16/14 1122 Author: Cyndy Nj MD Service: Neurosurgery Author Type: Physician Filed: 10/16/14 1124 Date of Service: 10/16/14 1122 Status: Signed Rig Builder Helper: Cyndy Nj MD (Physician) [facility] Service: Neurosurgery Progress Note Hospital Day: [...] nystatin, nystatin, ondansetron OR ondanset gildardo, pancrelipase (Cly-Jazq-Viqh) 10,000 units, petrolatum, phosphorus OR sodium phospha [...] Oct 16 2014 6:08AM Referring Provider Line: [phone] E ID: [id number] PROBLEM LIST Principal Problem: [...] Nj MD 10/16/2014 Maria Teresa Dhillon MA, CCC-CARD FIXER - 10/16/2014 9:40 AM PST Therapy Progress Note by MS KT Hayes-CARD FIXER at 10/16/14939 Author: MS KT Hayes-CARD FIXER Service: (none) Author Type: Speech Therapist Filed: 10/16/14940 Date of Service: 10/16/14939 Status: Signed Rig Builder Helper: MS KT Hayes-CARD FIXER (Speech and Language Pathologist) 10/16/14920 Swallowing Assessment Eval Swallowing Treatment Yes Initial Swallow Assessment Respiratory Status Room air Behavior/Cognition Cooperative;Lethargic;Requires cueing Dentition Adequate;Poor dental/oral hygiene Vision Impaired for self-feeding Patient Positioning Upright in bed Volitional Cough Weak Volitional Swallow Delayed Consistencies Consistencies Assessed Yes [place] Presentation Spoon Oral WFL;Increased Anterior to Posterior Transit Pharyngeal Phase Delayed swallow initiated;Decreased laryngeal elevation upon palpation;Cou gh - delayed;Spontaneous double swallow Puree Presentation Spoon Oral Phase Increased oral holding time Pharyngeal Delayed Swallow;Cough - Delayed;Spontaneous double swallow;Decreased Laryngeal E levation Recommendations Liquids Consistency Recommendations [place] thick;Other (comments) (No straws ) Diet Consistency [...] education;Assessment for upgr khadijah;Swallow strategies Dysphagia Goals Scrap Metal Collector Goals Safe/efficient oral intake;Advanced diet Pt will have safe/efficient oral intake [place] thick liquids;Puree diet;Goal progressing Pt will advanced diet in 3 days;Goal progressing Short Term Goals Tolerate diet upgrade trials Pt will tolerate diet upgrade trials With 1:1 supervision;Goal progressing onver alem Transaction, Provider Unknown - 10/16/2014 9:12 AM PST Case Management by TABITHA Sidhu at 10/16/14911 Author: TABITHA Sidhu Service: (none) Author Type: African History Professor Filed: 10/16/14 6256 Date of Service: 10/16/14911 Status: Addendum Rig Builder Helper: TABITHA Sidhu (African History Professor) Related Notes: Original Note by TABITHA Sidhu (African History Professor) filed at 10/16/1414 10/16/14 0908 Discharge Planning Evaluation Admitting Diagnosis TBI Readmission No Living Arrangements Alone Support Systems Parent;Children Type of Residence Private residence (Lives on the [facility] House type (Duplex) Independent with ADL's Yes Independent with Mobility Yes Home Care Services No Caregiver after Discharge Yes Relationship to Patient Mother and children Prior functional status Independent prior to admit. Driving, made own meals, did own chores . 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 No DME used. Alcoholic. Mother states he has been drinking more and more. x 3 years. Resources Financial concerns No Transportation issues No Patient/Family concerns No Prescription Plan Yes Name of Pharmacy [facility] Anticipated Disposition Facility Type Inpatient Rehabilitation;long term facility Spoke with pt's mother Teressa ([phone]) and discussed discharge planning, Pt is a 53 y.o., male admitted with TBI from 2 falls rela stephenie to etoh. Per mother, pt was driving, shopping, doing own chores prior to admit. 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 Patient's PCP is: PER PT NONE Patient's insurance:[facility] Medicaid Coverage concerns: Medication coverage/concerns: [employer] [facility] Delivery: Community resources utilized / needed: Assistance in transportation: TBD Identification of any specific education / training: Barriers to Discharge / Alternative housing needed: Anticipated DCP: TBI Rehab vs. SNF. Faxed clinical to [facility]. HAYES STEEN onver alem Transaction, Provider Unknown - 10/15/2014 5:22 PM PST Progress Notes by Maye Saleem RD, CD at 10/15/141721 Author: Maye Saleem RD, CD Service: (none) Author Type: Registered Dietitian Filed: 10/15/14 4313 Date of Service: 10/15/141721 Status: Signed Rig Builder Helper: Maye Saleem RD, CD (Registered Dietitian) Nutrition Follow-Up High-risk follow-up. Assessment: Extubated yesterday. Appetite is good. Nutritionally pertinent labs: BG has been variable in the 100s, Nutrition-focused physical findings: Skin is intact. CARD FIXER is following due to dysphagia. Diet order/current [...] y and TBI. Intervention: Continue diet per CARD FIXER. 1:1 feeding assistance with meals. Include Ensure pudding with meal trays when appropriate. Additional supplements to be provided once diet can be advanced. Goal: Pt will tolerate diet upgrade and intake will be adequate to meet pt's estimated nutritiona l requirements. Recommendations: 1) General diet with texture/liquid modifications as per CARD FIXER recommendations. 2) Ensure pudding with meal trays once pt can have additional puree items. Monitoring: Will follow up in 3 days or as indicated. Maye Saleem RD, CD 10/15/2014 Cyndy Warenr MD - 10/15/2014 4:32 PM PST Progress Notes by Cyndy Nj MD at 10/15/14 1632 Author: Cyndy Nj MD Service: Neurosurgery Author Type: Physician Filed: 10/15/14 1633 Date of Service: 10/15/14 1632 Status: Signed Rig Builder Helper: Cyndy Nj MD (Physician) [facility] Service: Neurosurgery Progress Note Hospital Day: [...] nystatin, nystatin, ondansetron OR ondanset gildardo, pancrelipase (Imk-Inep-Agen) 10,000 units, petrolatum, phosphorus OR sodium phospha [...] 10/15/141932 Date of Service: 10/15/141609 Status: Signed Rig Builder Helper: Ki Martinez PT (Physical Therapist) 10/15/14 161 [...] p with bilateral hands, but had minimal package lift operator bilaterally. Pt was able to reach anteriorly [...] at 10/15/14 1147 Author: JENNIFER Small Service: Warp Tension Tester Author Type: Warp Tension Tester Filed: 10/15/14 1203 Date of Service: 10/15/14 1147 Status: Signed Rig Builder Helper: JENNIFER Small (Nurse Practitioner) [facility] Service: Warp Tension Tester Progress Note Jimenezrobert Fortune 53 y.o. Date of Admission: 10/11/2014 Treatment Team: Consulting Physician: Anila Delgado MD Admitting Provider: Harika Apodaca MD CHIEF COMPLAINT: severe TBI, large right SDH with massive midline shift, IC hypertension HISTORY OF PRESENT ILLNESS The patient is a 53 y.o. male with significant past medical history of chronic alcohol abus e and multiple falls. Per ED report from [facility]: he was drinking earlier today at home and fell twice. He went to bed and then he was noted to be having what they thought was seizure activity and th ey could not wake him and called EMS. He was taken to the ED at [facility] in [place] a nd then transferred to the ED [...] FOR BLEED; Surgeon: Anila Delgado MD; Location: [facility] IN OR; Service: Neurosurgery; Laterality: Right; Craniectomy Right 10/11/2014 Procedure: CRANIECTOMY; Surgeon: Anila Delgado MD; Location: [facility] OR; Ser vice: Neurosurgery; Laterality: Right; [...] 14 2014 5:24AM Refe savage Provider Line: [phone] ID: [id number] Xr Chest 1 View 10/14/2014 [...] Author: TABITHA Sidhu Service: (none) Author Type: African History Professor Filed: 10/16/14 1251 Date of Service: 10/15/14 1132 Status: Addendum Rig Builder Helper: TABITHA Sidhu (African History Professor) Related Notes: Original Note by TABITHA Sidhu (African History Professor) filed at 10/15/14 1135 Attended morning rounds. Pt is extubated. Will need TBI rehab. Has [facility] Medicaid. Referral made to [facility] [place] ([phone]). Faxed initial referral info and updated clinical. Await return call regarding acceptance and bed availability. onver alem Transaction, Provider Unknown - 10/15/2014 11:06 AM PST Therapy Progress Note by ИВАН Poole at 10/15/141105 Author: ИВАН Poole Service: (none) Author Type: Massage Therapist Filed: 10/15/141105 Date of Service: 10/15/141105 Status: Signed Rig Builder Helper: ИВАН Poole (Massage Therapist) 10/15/14 1100 MT Last Visit MT Received On 10/15/14 MT Therapy Visit On hold (due to temp >100F in last 24 hrs) Helen Campos MS CCC-CARD FIXER - 10/15/2014 8:30 AM PSTFormatting of this note might be different f rom the original. Therapy Progress Note by Helen Brian MS CFY-CARD FIXER at 10/15/14829 Author: MS KT Waters-CARD FIXER Service: (none) Author Type: Speech and Language Pa thologist Filed: 10/15/14907 Date of Service: 10/15/14829 Status: Signed Rig Builder Helper: MS KT Waters-CARD FIXER (Speech and Language Pathologist) 10/15/14829 Swallowing Assessment [...] cough w/ all straw and cup trials) [place] Presentation Cup;Spoon Oral Spillage Left;Increased Anterior to Posterior Transit Pharyngeal Phase Delayed swallow initiated;Decreased laryngeal elevation upon palpation;Cou gh - delayed (delayed cough in 2/6 trials by cup, no cough by spoon) Puree Presentation Spoon Oral Phase Increased oral holding time Pharyngeal Delayed Swallow;Decreased Laryngeal Elevation;Spontaneous double swallow Recommendations Liquids Consistency Recommendations [place]oundridge thick;Ice chips for oral comfort (NO STRAWS) [...] diet Pt will have safe/efficient oral intake [place] thick liquids;Puree diet;New/revised goal Pt will advanced diet in 3 days;New/revised goal Short Term Goals Tolerate diet upgrade trials Pt will tolerate diet upgrade trials With 1:1 supervision;New/revised goal onversio n Transaction, Provider Unknown - 10/14/2014 4:48 PM PSTFormatting of this note might be di fferent from the original. Progress Notes by Massiel Stovall RN at 10/14/14 7544 Author: Massiel Stovall RN Service: (none) Author Type: Registered Nurse Filed: 10/14/14 1650 Date of Service: 10/14/14 1648 Status: Signed Rig Builder Helper: Massiel Stovall RN (Registered Nurse) Phoned Pt [...] Date of Service: 10/14/14 1412 Status: Signed Rig Builder Helper: Maria Teresa Castillo RN (Registered Nurse) No need for PICC line at time. Time. Informed KEYSHAWN Monzon to reorder if needed. Mary Raygoza RN to change IV today. MARIA TERESA CASTILLO RN rian k, JENNIFER Arango - 10/14/2014 12:33 PM PSTFormatting of this note might be different f rom the original. Progress Notes by JENNIFER Small at 10/14/14 1233 Author: JENNIFER Small Service: Warp Tension Tester Author Type: Warp Tension Tester Filed: 10/14/14 1316 Date of Service: 10/14/14 1233 Status: Signed Rig Builder Helper: JENNIFER Small (Nurse Practitioner) [facility] Service: Warp Tension Tester Progress Note Tony Devika 53 y.o. Date of Admission: 10/11/2014 Treatment Team: Consulting Physician: Anila Delgado MD Admitting Provider: Harika Apodaca MD CHIEF COMPLAINT: severe TBI, large right SDH with massive midline shift, IC hypertension HISTORY OF PRESENT ILLNESS The patient is a 53 y.o. male with significant past medical history of chronic alcohol abus e and multiple falls. Per ED report from [facility]: he was drinking earlier today at home and fell twice. He went to bed and then he was noted to be having what they thought was seizure activity and th ey could not wake him and called EMS. He was taken to the ED at [facility] in [place] a nd then transferred to the ED [...] FOR BLEED; Surgeon: Anila Delgado MD; Location: [facility] IN OR; Service: Neurosurgery; Laterality: Right; Craniectomy Right 10/11/2014 Procedure: CRANIECTOMY; Surgeon: Anila Delgado MD; Location: [facility] OR; Ser vice: Neurosurgery; Laterality: Right; [...] heels LINES/TUBES: PIVs, daniels cath, left radial Alva DATA Recent Labs Lab 10/14/1441410/13/1424610/12/14304 WBC 9.8 [...] 14 2014 5:24AM Refe rring Provider Line: [phone] ID: [id number] Xr Chest 1 View 10/14/2014 [...] 10/14/14644 Date of Service: 10/14/14644 Status: Signed Rig Builder Helper: Sophy Vargas RPH (Pharmacist) Day 2 Vanco [...] 10/13/142099 Date of Service: 10/13/142099 Status: Signed Rig Builder Helper: Glenys Aguila RPH (Pharmacist) Clinical Pharmacy Note: [...] - 11.0 K/uL Final Testing performed at [facility], [address] [place] [address] INDICATION: CAP Will begin Vancomycin 1750 mg (17.8 mg/kg) IV Q12H. Level due 10/15 at 0900; goal 15 to 20 mcg/ml. Pharmacy will continue to monitor for changes in renal function and adjust accordingly. Glenys Aguila, [facility] 10/13/2014 9:00 PM onver alem Transaction, Provider Unknown - 10/13/2014 4:37 PM PST Progress Notes by Massiel Stovall RN at 10/13/14 1637 Author: Massiel Stovall RN Service: (none) Author Type: Registered Nurse Filed: 10/13/14 1637 Date of Service: 10/13/14 163 Status: Signed Rig Builder Helper: Massiel Stovall RN (Registered Nurse) Pulmonary edema in process of resolving. tAnila rodriguez MD - 10/13/2014 4:04 PM PSTFormatting of this note might be different from t he original. Progress Notes by Anila Delgado MD at 10/13/14 1600 Author: Anila Delgado MD Service: Neurosurgery Author Type: Physician Filed: 10/13/14 1607 Date of Service: 10/13/14 160 Status: Signed Rig Builder Helper: Anila Delgado MD (Physician) [facility] Service: Neurosurgery Progress Note Hospital Day: [...] nystatin, nystatin, ondansetron OR ondanset gildardo, pancrelipase (Tjc-Tkhe-Aipz) 10,000 units, petrolatum, phosphorus OR sodium phospha [...] Date of Service: 10/13/14 1530 Status: Signed Rig Builder Helper: Massiel Stovall RN (Registered Nurse) Pt went into flash pulmonary edema, And SLD TEACHER at bed side. Shania Howard ARNP - 10/13/2014 2:57 PM PSTFormatting of this note might be different f rom the original. Progress Notes by JENNIFER Small at 10/13/14 8147 Author: JENNIFER Small Service: Warp Tension Tester Author Type: Warp Tension Tester Filed: 10/13/14 1510 Date of Service: 10/13/14 2337 Status: Signed Rig Builder Helper: JENNIFER Small (Nurse Practitioner) [facility] Service: Warp Tension Tester Progress Note Tony Fortune 53 y.o. Date of Admission: 10/11/2014 Treatment Team: Consulting Physician: Anila Delgado MD Admitting Provider: Harika Apodaca MD CHIEF COMPLAINT: severe TBI, large right SDH with massive midline shift, IC hypertension HISTORY OF PRESENT ILLNESS The patient is a 53 y.o. male with significant past medical history of chronic alcohol abus e and multiple falls. Per ED report from [facility]: he was drinking earlier today at home and fell twice. He went to bed and then he was noted to be having what they thought was seizure activity and th ey could not wake him and called EMS. He was taken to the ED at [facility] in [place] a nd then transferred to [...] FOR BLEED; Surgeon: Anila Delgado MD; Location: [facility] IN OR; Service: Neurosurgery; Laterality: Right; Craniectomy Right 10/11/2014 Procedure: CRANIECTOMY; Surgeon: Anila Delgado MD; Location: [facility]; Ser vice: Neurosurgery; Laterality: Right; [...] INFUSIONS dexmedetomidine in NS 0.4 mcg/kg/hr (10/13/14 0251) sodium chloride (IV) 150 mL/hr at 10/13/14 [...] 10/13/14446 Date of Service: 10/13/14442 Status: Signed Rig Builder Helper: Mikki Jules RRT (Registered Respiratory Therapist) RT [...] at 10/12/142015 Author: Harika Apodaca MD Service: Warp Tension Tester Author Type: Warp Tension Tester Filed: 10/12/142026 Date of Service: 10/12/142015 Status: Signed Rig Builder Helper: Harika Apodaca MD (Physician) [facility] Service: Warp Tension Tester Progress Note Tony Fortune 53 y.o. Date [...] and multiple falls. Per ED report from [facility]: he was drinking earlier today and fe ll twice. He went to bed and then he was noted to be having what they thought was seizure ac tivity and they could not wake him and called EMS. He was taken to the ED at [facility] i n [place] and then transferred to [...] FOR BLEED; Surgeon: Anila Delgado MD; Location: [facility] IN OR; Service: Neurosurgery; Laterality: Right; Craniectomy Right 10/11/2014 Procedure: CRANIECTOMY; Surgeon: Anila Delgado MD; Location: [facility]; Ser vice: Neurosurgery; Laterality: Right; [...] 4 mm and reactive. Motor: Able to control inspector RUE to command and left LE to [...] Case Management by TABITHA Sidhu at 10/12/14 6248 Author: TABITHA Sidhu Service: (none) Author Type: African History Professor Filed: 10/12/14 3765 Date of Service: 10/12/14 1530 Status: Signed Rig Builder Helper: TABITHA Sidhu (African History Professor) Attended morning rounds. Pt is vented and admitted with TBI. No family have visited yet lissett saniya. Pt appears to be responding to some commands. He is a drinker. He reportedly has had s everal falls recently. Pt will need TBI rehab. He is from [place], [place] and [place]. If he requires LTAC h e will need to go to [facility] as [place] Medicaid is contracted with [facility] only. Will c omplete assessment when family arrives. tAnila rodriguez MD - 10/12/2014 2:04 PM PSTFormatting of this note might be different from lissett tapia original. Progress Notes by Anila Delgado MD at 10/12/14 6632 Author: Anila Delgado MD Service: Neurosurgery Author Type: Physician Filed: 10/12/14 8359 Date of Service: 10/12/14 0495 Status: Signed Rig Builder Helper: Anila Delgado MD (Physician) [facility] Service: Neurosurgery Progress Note Hospital Day: [...] Progress Notes by Trena Gilbert at 10/11/14 9254 Author: Trena Gilbert Service: (none) Author Type: Technologist Development Filed: 10/11/142351 Date of Service: 10/11/142349 Status: Signed Rig Builder Helper: Trena Gilbert (Technologist Development) [facility] Nayana called pipe and test supervisor with request from family. When I arrived at hospital family had already left. I will leave info for morning pipe and test supervisor to visit tomorrow. Chaplain Trena Gilbert onver alem Transaction, Provider Unknown - 10/11/2014 11:02 PM PST Progress Notes by Glenys Aguila RPH at 10/11/142301 Author: Glenys Aguila RPH Service: (none) Author Type: Pharmacist Filed: 10/11/142301 Date of Service: 10/11/142301 Status: Signed Rig Builder Helper: Glenys Aguila RPH (Pharmacist) Clinical Pharmacy Note: [...] 10/11/142137 Date of Service: 10/11/142131 Status: Signed Rig Builder Helper: Anila Delgado MD (Physician) [facility] Service: Neurosurgery Admission History & Physical Date of Admission: 10/11/2014 Requesting Physician: [facility] Reason for Admission: Subdural hematoma History Obtained From: mother CHIEF COMPLAINT: Falls HISTORY OF PRESENT ILLNESS The patient is a 53 y.o. male with hx of etoh use and multiple falls found down by family joyce gracia today. He remains difficult to arouse. Per ems questionable seizure like activity. He was intubated at an outside facility. A head ct revealed a large acute R SDH with 2cm MLS. Transferred to [facility] for further care REVIEW OF SYSTEMS Negative [...] by Wing Lewis Argueta MD at 10/18/14 2445 Author: Wing Lewis Argueta MD Service: (none) Author Type: Physician Filed: 10/18/14 3241 Date of Service: 10/18/14 0903 Status: Signed Rig Builder Helper: Wing Lewis Argueta MD (Physician) [facility] Service: Physical Medicine & Rehab Initial Consult Note Date of Admission: 10/11/2014 Reason for Consultation: Consideration for IPR Requesting Physician: Warp Tension Tester History Obtained From: patient, chart review CHIEF COMPLAINT: SDH HISTORY OF PRESENT ILLNESS The patient is a 53 y.o. male with significant past medical history of chronic alcohol abus e and multiple falls. Per ED report from [facility]: he was drinking earlier today and fe ll twice. He went to bed and then he was noted to be having what they thought was seizure ac tivity and they could not wake him and called EMS. He was taken to the ED at [facility] [place] and then transferred to the ED here [...] FOR BLEED; Surgeon: Anila Delgado MD; Location: [facility] [place]; Service: Neurosurgery; Laterality: Right; Craniectomy Right 10/11/2014 Procedure: CRANIECTOMY; Surgeon: Anila Delgado MD; Location: [facility] MAIN OR; [...] helmet comes in for protection. In the or antime, he can perform bed exercises. Patient will need PT, OT and CARD FIXER. He is fairly pho[place] g and hopefully [...] Dietitian Filed: 10/12/14 1124 Date of Service: 10/12/141 Status: Signed Rig Builder Helper: Maye Saleem RD, CD (Registered Dietitian) Consult Orders: 1. Dietitian Consult [[id number]] ordered by Liz West DO at 10/11/14 2657 Nutrition Assessment and Recommendations Assessment: Pt was [...] acid and thiamine supplementation. Estimated needs: Kcal: 9748-0802 kcal/day (30-35 kcal/kg admit wt) Protein: 134-179 [...] Liz West DO Service: (none) Author Type: Warp Tension Tester Filed: 10/11/14 8585 Date of Service: 10/11/142199 Status: Signed Rig Builder Helper: Liz West DO (Physician) [facility] Service: Warp Tension Tester Initial Consult Note Tony Fortune 53 y.o. [...] and multiple falls. Per ED report from [facility]: he was drinking earlier today and fe ll twice. He went to bed and then he was noted to be having what they thought was seizure ac tivity and they could not wake him and called EMS. He was taken to the ED at [facility] and then transferred to the [...] Intake/Output Summary (Last 24 hours) at 10/11/14 6375 Last data filed at 10/11/142055 Gross per [...] 10/28/142320 Date of Service: 10/28/142318 Status: Signed Rig Builder Helper: Thalia Israel RN (Registered Nurse) Patient will [...] 10/26/14716 Date of Service: 10/26/14716 Status: Signed Rig Builder Helper: Tamiko Crouch RN (Registered Nurse) Problem: Safety [...] 10/25/142050 Date of Service: 10/25/142050 Status: Signed Rig Builder Helper: Dorcas Antonio RN (Registered Nurse) Problem: Pain [...] 1216 Date of Service: 10/25/141214 Status: Signed Rig Builder Helper: Trina Maldonado PT (Physical Therapist) Problem: Mobility [...] 10/24/142029 Date of Service: 10/24/142029 Status: Signed Rig Builder Helper: Dorcas Antonio RN (Registered Nurse) Problem: Pain [...] o f Zunilda - Jessica Headley MA, CCC-CARD FIXER - 10/24/2014 11:48 AM PST Plan of Care by Jessica Headley MA CCC-CARD FIXER at 10/24/141147 Author: Jessica Headley MA CCC-CARD FIXER Service: (none) Author Type: Speech and Language Pathologist Filed: 10/24/141147 Date of Service: 10/24/141147 Status: Signed Rig Builder Helper: Jessica Headley MA CCC-CARD FIXER (Speech and Language Pathologist) Problem: Dysphagia Goal: [...] 10/23/142206 Date of Service: 10/23/142206 Status: Signed Rig Builder Helper: Dorcas Antonio RN (Registered Nurse) Problem: Pain [...] 10/20/141204 Date of Service: 10/20/141204 Status: Signed Rig Builder Helper: Tamiko Crouch RN (Registered Nurse) Problem: Safety [...] o f Zunilda - Jessica Headley MA, CCC-CARD FIXER - 10/19/2014 2:13 PM PST Plan of Care by Jessica Headley MA CCC-CARD FIXER at 10/19/14 1413 Author: Jessica Headley MA CCC-CARD FIXER Service: (none) Author Type: Speech and Language Pathologist Filed: 10/19/14 1413 Date of Service: 10/19/141412 Status: Signed Rig Builder Helper: Jessica Headley MA CCC-CARD FIXER (Speech and Language Pathologist) Problem: Dysphagia Goal: LTG - Patient will have safe/efficient oral intake Outcome: Progressing Patient will work towards this goal with puree diet, with feeding assist. lan o f Zunilda - Miguel Ángel John MD - 10/16/2014 3:01 PM PSTFormatting of this note might be dif ferent from the original. Plan of Care by Miguel Ángel John MD at 10/16/14 1501 Author: Miguel Ángel John MD Service: Hospitalist Author Type: Physician Filed: 10/16/14 1507 Date of Service: 10/16/14 150 Status: Signed Rig Builder Helper: Miguel Ángel John MD (Physician) Accepted to [...] 10/11/142153 Date of Service: 10/11/142151 Status: Signed Rig Builder Helper: Anila Delgado MD (Physician) Postop exam- Extensor [...] 10/11/142243 Date of Service: 10/11/142147 Status: Signed Rig Builder Helper: Anila Delgado MD (Physician) TONY FORTUNE Date [...] ICU in very critical condition. P/ P/olga lidia/[id number] ANILA DELGADO II, MD documented in th [...] [address], | | | | | | [place] [address] | | | | + + + + + + | K | 3.8Comment: Testing | 3.5 - 4.9 | EXTERNAL | | | | performed at [facility], [address] | mmol/L | LAB | | | | [address], | | | | | | [place], [place] [address] | | | | + + + + + + | Cl | 101Comment: Testing | 99 - 109 mmol/L | EXTERNAL | | | | performed at [facility], [address] | | LAB | | | | [address], | | | | | | [place], [place] [address] | | | | + + + + + + | CO2 | 28Comment: Testing | 23 - 32 mmol/L | EXTERNAL | | | | performed at [facility], [address] | | LAB | | | | [address], | | | | | | [place] [address] | | | | + + + + + + | Anion Gap | 9Comment: Testing | 5 - 20 mmol/L | EXTERNAL | | | | performed at [facility], [address] | | LAB | | | | [address], | | | | | | [place] [address] | | | | + + + + + + | Glucose, | 119 (H)Comment: Testing | 65 - 99 mg/dL | EXTERNAL | | | Fasting | performed at [facility], [address] | | LAB | | | | [address], | | | | | | [place] [address] | | | | + + + + + + | BUN | 8Comment: Testing | 8 - 25 mg/dL | EXTERNAL | | | | performed at [facility], [address] | | LAB | | | [address], | | | | | | [place] [address] | | | | + + + + + + | Creatinine | 0.54 (L)Comment: Testing | 0.70 - 1.30 | EXTERNAL | | | | performed at [facility], [address] | mg/dL | LAB | | | | [address], | | | | | | [place] [address] | | | | + + + + + + | BUN/Creatin | 15Comment: Testing | | EXTERNAL | | | ine Ratio | performed at [facility], [address] | | LAB | | | | [address], | | | | | | [place] [address] | | | | + + + + + + | Calcium | 9.4Comment: NOTE NEW | 8.5 - 10.5 | EXTERNAL | | | | REFERENCE RANGETesting | mg/dL | LAB | | | | performed at [facility], [address] | | | | | | [address], | | | | | | [place] [address] | | | | + + + [...] | | | | | | at [facility], [address] | | | | | | [address], | | | | | | [place] [address] | | | | + + + [...] | | | | | [place] [address] | | | | + + + + + + | K | 3.6Comment: Testing | 3.5 - 4.9 | EXTERNAL | | | | performed at [facility], [address] | mmol/L | LAB | | | | [address], | | | | | | [place] [address] | | | | + + + + + + | Cl | 101Comment: Testing | 99 - 109 mmol/L | EXTERNAL | | | | performed at [facility], [address] | | LAB | | | | [address], | | | | | | [place] [address] | | | | + + + + + + | CO2 | 29Comment: Testing | 23 - 32 mmol/L | EXTERNAL | | | | performed at [facility], [address] | | LAB | | | | [address], | | | | | | [place] [address] | | | | + + + + + + | Anion Gap | 8Comment: Testing | 5 - 20 mmol/L | EXTERNAL | | | | performed at [facility], [address] | | LAB | | | | [address], | | | | | | [place] [address] | | | | + + + + + + | Glucose, | 118 (H)Comment: Testing | 65 - 99 mg/dL | EXTERNAL | | | Fasting | performed at [facility], [address] | | LAB | | | | [address], | | | | | | [place] [address] | | | | + + + + + + | BUN | 7 (L)Comment: Testing | 8 - 25 mg/dL | EXTERNAL | | | | performed at [facility], [address] | | LAB | | | | [address], | | | | | | [place] [address] | | | | + + + + + + | Creatinine | 0.57 (L)Comment: Testing | 0.70 - 1.30 | EXTERNAL | | | | performed at [facility], [address] | mg/dL | LAB | | | | [address], | | | | | | [place] [address] | | | | + + + + + + | BUN/Creatin | 12Comment: Testing | | EXTERNAL | | | ine Ratio | performed at [facility], [address] | | LAB | | | | [address], | | | | | | [place] [address] | | | | + + + + + + | Calcium | 9.5Comment: NOTE NEW | 8.5 - 10.5 | EXTERNAL | | | | REFERENCE RANGETesting | mg/dL | LAB | | | | performed at [facility], [address] | | | | | | [address], | | | | | | [place] [address] | | | | + + + + + + | Protein, | 7.7Comment: Testing | 6.3 - 8.2 g/dL | EXTERNAL | | | Total | performed at [facility], [address] | | LAB | | | | [place], | | | | | | [place] [address] | | | | + + + + + + | Albumin | 3.5 (L)Comment: Testing | 3.6 - 5.0 g/dL | EXTERNAL | | | | performed at [facility], [address] | | LAB | | | | [place], | | | | | | [place] [address] | | | | + + + + + + | Globulin | 4.2Comment: Testing | 1.3 - 4.9 g/dL | EXTERNAL | | | | performed at [facility], [address] | | LAB | | | | [address], | | | | | | [place] [address] | | | | + + + + + + | A/G Ratio | 0.8 (L)Comment: Testing | 1.0 - 2.4 | EXTERNAL | | | | performed at [facility], [address] | | LAB | | | | [address], | | | | | | [place] [address] | | | | + + + + + + | Bilirubin | 0.6Comment: Testing | 0.1 - 1.5 mg/dL | EXTERNAL | | | Total | performed at [facility], [address] | | LAB | | | | [address], | | | | | | [place] [address] | | | | + + + + + + | ALP, | 225 (H)Comment: Testing | 35 - 115 U/L | EXTERNAL | | | External | performed at [facility], [address] | | LAB | | | | [address], | | | | | | [place] [address] | | | | + + + + + + | AST | 52 (H)Comment: Testing | 10 - 45 U/L | EXTERNAL | | | | performed at [facility], [address] | | LAB | | | | [address], | | | | | | [place] [address] | | | | + + + + + + | ALT | 46Comment: Testing | 10 - 65 U/L | EXTERNAL | | | | performed at [facility], [address] | | LAB | | | | [address], | | | | | | [place] [address] | | | | + + + [...] | | | | | [place] [address] | | | | + + + + + + | Non- | 3.62 (L)Comment: Testing | 4.20 - 5.70 | EXTERNAL | | | Red Blood | performed at [facility], [address] | M/uL | LAB | | | Cells | [address], | | | | | Counted | [place] [address] | | | | + + + + + + | Hemoglobin | 12.0 (L)Comment: Testing | 13.2 - 17.0 | EXTERNAL | | | | performed at [facility], [address] | g/dL | LAB | | | | [address], | | | | | | [place] [address] | | | | + + + + + + | Hematocrit, | 36.2 (L)Comment: Testing | 39.0 - 50.0 % | EXTERNAL | | | POC | performed at [facility], [address] | | LAB | | | | [address], | | | | | | [place] [address] | | | | + + + + + + | MCV | 99.9Comment: Testing | 80.0 - 100.0 fl | EXTERNAL | | | | performed at [facility], [address] | | LAB | | | | [address], | | | | | | [place] [address] | | | | + + + + + + | MCH | 33.2Comment: Testing | 27.0 - 34.0 pg | EXTERNAL | | | | performed at [facility], [address] | | LAB | | | | [address], | | | | | | [place] [address] | | | | + + + + + + | MCHC | 33.2Comment: Testing | 32.0 - 35.5 | EXTERNAL | | | | performed at [facility], [address] | g/dL | LAB | | | | [address], | | | | | | [place] [address] | | | | + + + + + + | RDW-CV | 54.7 (H)Comment: Testing | 37 - 53 fl | EXTERNAL | | | | performed at [facility], [address] | | LAB | | | | [address], | | | | | | [place] [address] | | | | + + + + + + | Platelet | 286Comment: Testing | 150 - 400 K/uL | EXTERNAL | | | Count | performed at [facility], [address] | | LAB | | | Plasma | [address], | | | | | | [place] [address] | | | | + + + + + + | MPV | 8.2Comment: Testing | fl | EXTERNAL | | | | performed at [facility], [address] | | LAB | | | | [address], | | | | | | [place] [address] | | | | + + + + + + | Differentia | AUTOMATEDComment: | | EXTERNAL | | | l Type | Testing performed at | | LAB | | | | [facility], [address] | | | | | | [place] | | | | | | [address] | | | | + + + + + + | % Segmented | 72.2Comment: Testing | % | EXTERNAL | | | | performed at [facility], [address] | | LAB | | | Neutrophils | [address], | | | | | | [place] [address] | | | | + + + + + + | % | 16.2Comment: Testing | % | EXTERNAL | | | Lymphocytes | performed at [facility], [address] | | LAB | | | | [address], | | | | | | [place] [address] | | | | + + + + + + | % Monocytes | 7.9Comment: Testing | % | EXTERNAL | | | | performed at [facility], [address] | | LAB | | | | [address], | | | | | | [place] [address] | | | | + + + + + + | % | 3.0Comment: Testing | % | EXTERNAL | | | Eosinophils | performed at [facility], [address] | | LAB | | | [address], | | | | | | [place] [address] | | | | + + + + + + | % Basophils | 0.7Comment: Testing | % | EXTERNAL | | | | performed at [facility], [address] | | LAB | | | | [address], | | | | | | [place] [address] | | | | + + + + + + | Absolute | 5.7Comment: Testing | 1.9 - 7.4 K/uL | EXTERNAL | | | Segmented | performed at [facility], [address] | | LAB | | | Neutrophils | [address], | | | | | | [place] [address] | | | | + + + + + + | Absolute | 1.3Comment: Testing | 1.0 - 3.9 K/uL | EXTERNAL | | | Lymphocytes | performed at [facility], [address] | | LAB | | | | [address], | | | | | | [place] [address] | | | | + + + + + + | Absolute | 0.6Comment: Testing | 0 - 0.8 K/uL | EXTERNAL | | | Monocytes | performed at [facility], [address] | | LAB | | | | [address], | | | | | | [place] [address] | | | | + + + + + + | Absolute | 0.2Comment: Testing | 0 - 0.5 K/uL | EXTERNAL | | | Eosinophils | performed at [facility], [address] | | LAB | | | | [address], | | | | | | [place] [address] | | | | + + + + + + | Absolute | 0.1Comment: Testing | 0 - 0.1 K/uL | EXTERNAL | | | Basophils | performed at [facility], [address] | | LAB | | | | [address], | | | | | | [place] [address] | | | | + + + [...] | LAB | | | | [address];[place], [place] | | | | | | [address] | | | | + + + [...] | | | | | [place] [address] | | | | + + + + + + | K | 3.5Comment: Testing | 3.5 - 4.9 | EXTERNAL | | | | performed at [facility], [address] | mmol/L | LAB | | | | [address], | | | | | | [place] [address] | | | | + + + + + + | Cl | 100Comment: Testing | 99 - 109 mmol/L | EXTERNAL | | | | performed at [facility], [address] | | LAB | | | [address], | | | | | | [place] [address] | | | | + + + + + + | CO2 | 26Comment: Testing | 23 - 32 mmol/L | EXTERNAL | | | | performed at [facility], [address] | | LAB | | | | [address], | | | | | | [place] [address] | | | | + + + + + + | Anion Gap | 11Comment: Testing | 5 - 20 mmol/L | EXTERNAL | | | | performed at [facility], [address] | | LAB | | | | [address], | | | | | | [place] [address] | | | | + + + + + + | Glucose, | 112 (H)Comment: Testing | 65 - 99 mg/dL | EXTERNAL | | | Fasting | performed at [facility], [address] | | LAB | | | | [address], | | | | | | [place] [address] | | | | + + + + + + | BUN | 8Comment: Testing | 8 - 25 mg/dL | EXTERNAL | | | | performed at [facility], [address] | | LAB | | | | [address], | | | | | | [place] [address] | | | | + + + + + + | Creatinine | 0.65 (L)Comment: Testing | 0.70 - 1.30 | EXTERNAL | | | | performed at [facility], [address] | mg/dL | LAB | | | | [address], | | | | | | [place] [address] | | | | + + + + + + | BUN/Creatin | 12Comment: Testing | | EXTERNAL | | | ine Ratio | performed at [facility], [address] | | LAB | | | | [place], | | | | | | [place] [address] | | | | + + + + + + | Calcium | 9.2Comment: NOTE NEW | 8.5 - 10.5 | EXTERNAL | | | | REFERENCE RANGETesting | mg/dL | LAB | | | | performed at [facility], [address] | | | | [...] [address], | | | | | | [place] [address] | | | | + + + [...] | | | | | [place] [address] | | | | + + + + + + | K | 3.6Comment: Testing | 3.5 - 4.9 | EXTERNAL | | | | performed at [facility], [address] | mmol/L | LAB | | | | [address], | | | | | | [place] [address] | | | | + + + + + + | Cl | 100Comment: Testing | 99 - 109 mmol/L | EXTERNAL | | | | performed at [facility], [address] | | LAB | | | | [address], | | | | | | [place] [address] | | | | + + + + + + | CO2 | 27Comment: Testing | 23 - 32 mmol/L | EXTERNAL | | | | performed at [facility], [address] | | LAB | | | | [address], | | | | | | [place] [address] | | | | + + + + + + | Anion Gap | 10Comment: Testing | 5 - 20 mmol/L | EXTERNAL | | | | performed at [facility], [address] | | LAB | | | | [address], | | | | | | [place] [address] | | | | + + + + + + | Glucose, | 119 (H)Comment: Testing | 65 - 99 mg/dL | EXTERNAL | | | Fasting | performed at [facility], [address] | | LAB | | | | [address], | | | | | | [place] [address] | | | | + + + + + + | BUN | 11Comment: Testing | 8 - 25 mg/dL | EXTERNAL | | | | performed at [facility], [address] | | LAB | | | | [address], | | | | | | [place] [address] | | | | + + + + + + | Creatinine | 0.64 (L)Comment: Testing | 0.70 - 1.30 | EXTERNAL | | | | performed at [facility], [address] | mg/dL | LAB | | | | [address], | | | | | | [place] [address] | | | | + + + + + + | BUN/Creatin | 17Comment: Testing | | EXTERNAL | | | ine Ratio | performed at [facility], [address] | | LAB | | | | [address], | | | | | | [place] [address] | | | | + + + + + + | Calcium | 9.4Comment: NOTE NEW | 8.5 - 10.5 | EXTERNAL | | | | REFERENCE RANGETesting | mg/dL | LAB | | | | performed at [facility], [address] | | | | | | [address], | | | | | | [place] [address] | | | | + + + [...] W | | | | | | [address], | | | | | | [place] [address] | | | | + + + [...] EXTERNAL | | | | performed at [facility], [address] | | LAB | | | | [address], | | | | | | [place] [address] | | | | + + + + + + | Non- | 3.83 (L)Comment: Testing | 4.20 - 5.70 | EXTERNAL | | | Red Blood | performed at [facility], [address] | M/uL | LAB | | | Cells | [address], | | | | | Counted | [place] [address] | | | | + + + + + + | Hemoglobin | 12.8 (L)Comment: Testing | 13.2 - 17.0 | EXTERNAL | | | | performed at [facility], [address] | g/dL | LAB | | | | [address], | | | | | | [place] [address] | | | | + + + + + + | Hematocrit, | 38.0 (L)Comment: Testing | 39.0 - 50.0 % | EXTERNAL | | | POC | performed at [facility], [address] | | LAB | | | | [address], | | | | | | [place] [address] | | | | + + + + + + | MCV | 99.2Comment: Testing | 80.0 - 100.0 fl | EXTERNAL | | | | performed at [facility], [address] | | LAB | | | | [address], | | | | | | [place] [address] | | | | + + + + + + | MCH | 33.3Comment: Testing | 27.0 - 34.0 pg | EXTERNAL | | | | performed at [facility], [address] | | LAB | | | | [address], | | | | | | [place] [address] | | | | + + + + + + | MCHC | 33.6Comment: Testing | 32.0 - 35.5 | EXTERNAL | | | | performed at [facility], [address] | g/dL | LAB | | | | [address], | | | | | | [place] [address] | | | | + + + [...] | | | | | [place] [address] | | | | + + + + + + | MPV | 8.3Comment: Testing | fl | EXTERNAL | | | | performed at [facility], [address] | | LAB | | | | [address], | | | | | | [place] [address] | | | | + + + + + + | Differentia | AUTOMATEDComment: | | EXTERNAL | | | l Type | Testing performed at | | LAB | | | | [facility], [address] | | | | | | [place] | | | | | | [address] | | | | + + + + + + | % Segmented | 72.8Comment: Testing | % | EXTERNAL | | | | performed at [facility], [address] | | LAB | | | Neutrophils | [address], | | | | | | [place] [address] | | | | + + + + + + | % | 16.9Comment: Testing | % | EXTERNAL | | | Lymphocytes | performed at [facility], [address] | | LAB | | | | [address], | | | | | | [place] [address] | | | | + + + + + + | % Monocytes | 7.6Comment: Testing | % | EXTERNAL | | | | performed at [facility], [address] | | LAB | | | | [address], | | | | | | [place] [address] | | | | + + + + + + | % | 2.0Comment: Testing | % | EXTERNAL | | | Eosinophils | performed at [facility], [address] | | LAB | | | | [address], | | | | | | [place] [address] | | | | + + + + + + | % Basophils | 0.7Comment: Testing | % | EXTERNAL | | | | performed at [facility], [address] | | LAB | | | | [address], | | | | | | [place] [address] | | | | + + + + + + | Absolute | 6.9Comment: Testing | 1.9 - 7.4 K/uL | EXTERNAL | | | Segmented | performed at [facility], [address] | | LAB | | | Neutrophils | [address], | | | | | | [place] [address] | | | | + + + + + + | Absolute | 1.6Comment: Testing | 1.0 - 3.9 K/uL | EXTERNAL | | | Lymphocytes | performed at [facility], [address] | | LAB | | | | [address], | | | | | | [place] [address] | | | | + + + + + + | Absolute | 0.7Comment: Testing | 0 - 0.8 K/uL | EXTERNAL | | | Monocytes | performed at [facility], [address] | | LAB | | | | [address], | | | | | | [place] [address] | | | | + + + + + + | Absolute | 0.2Comment: Testing | 0 - 0.5 K/uL | EXTERNAL | | | Eosinophils | performed at [facility] [facility], [address] | | LAB | | | | [address], | | | | | | [place] [address] | | | | + + + + + + | Absolute | 0.1Comment: Testing | 0 - 0.1 K/uL | EXTERNAL | | | Basophils | performed at [facility], [address] | | LAB | | | | [address], | | | | | | [place] [address] | | | | + + + [...] | | performed at [facility] | | LAB | | | | [facility];[place], [place] | | | | | | [address] | | | | + + + [...] | | | | | [place] [address] | | | | + + + + + + | K | 3.8Comment: Testing | 3.5 - 4.9 | EXTERNAL | | | | performed at [facility], [address] | mmol/L | LAB | | | | [address], | | | | | | [place] [address] | | | | + + + + + + | Cl | 98 (L)Comment: Testing | 99 - 109 mmol/L | EXTERNAL | | | | performed at [facility], [address] | | LAB | | | | [address], | | | | | | [place] [address] | | | | + + + + + + | CO2 | 26Comment: Testing | 23 - 32 mmol/L | EXTERNAL | | | | performed at [facility], [address] | | LAB | | | | [address], | | | | | | [place] [address] | | | | + + + + + + | Anion Gap | 11Comment: Testing | 5 - 20 mmol/L | EXTERNAL | | | | performed at [facility], [address] | | LAB | | | | [address], | | | | | | [place] [address] | | | | + + + + + + | Glucose, | 121 (H)Comment: Testing | 65 - 99 mg/dL | EXTERNAL | | | Fasting | performed at [facility], [address] | | LAB | | | | [address], | | | | | | [place] [address] | | | | + + + + + + | BUN | 10Comment: Testing | 8 - 25 mg/dL | EXTERNAL | | | | performed at [facility], [address] | | LAB | | | [address], | | | | | | [place] [address] | | | | + + + + + + | Creatinine | 0.60 (L)Comment: Testing | 0.70 - 1.30 | EXTERNAL | | | | performed at [facility], [address] | mg/dL | LAB | | | | [address], | | | | | | [place] [address] | | | | + + + + + + | BUN/Creatin | 17Comment: Testing | | EXTERNAL | | | ine Ratio | performed at [facility], [address] | | LAB | | | | [address], | | | | | | [place] [address] | | | | + + + + + + | Calcium | 9.3Comment: NOTE NEW | 8.5 - 10.5 | EXTERNAL | | | | REFERENCE RANGETesting | mg/dL | LAB | | | | performed at [facility], [address] | | | | | | [address], | | | | | | [place] [address] | | | | + + + [...] | | | | | | at [facility], [address] | | | | | | [address], | | | | | | [place] [address] | | | | + + + [...] EXTERNAL | | | | performed at [facility], [address] | | LAB | | | | [address], | | | | | | [place] [address] | | | | + + + + + + | Non- | 3.77 (L)Comment: Testing | 4.20 - 5.70 | EXTERNAL | | | Red Blood | performed at [facility], [address] | M/uL | LAB | | | Cells | [address], | | | | | Counted | [place] [address] | | | | + + + + + + | Hemoglobin | 12.2 (L)Comment: Testing | 13.2 - 17.0 | EXTERNAL | | | | performed at [facility], [address] | g/dL | LAB | | | | [address], | | | | | | [place] [address] | | | | + + + + + + | Hematocrit, | 37.3 (L)Comment: Testing | 39.0 - 50.0 % | EXTERNAL | | | POC | performed at [facility], [address] | | LAB | | | | [address], | | | | | | [place] [address] | | | | + + + + + + | MCV | 98.9Comment: Testing | 80.0 - 100.0 fl | EXTERNAL | | | | performed at [facility], [address] | | LAB | | | [address], | | | | | | [place] [address] | | | | + + + + + + | MCH | 32.3Comment: Testing | 27.0 - 34.0 pg | EXTERNAL | | | | performed at [facility], [address] | | LAB | [...] | | | | | [place] [address] | | | | + + + + + + | RDW-CV | 58.6 (H)Comment: Testing | 37 - 53 fl | EXTERNAL | | | | performed at [facility], [address] | | LAB | | | | [address], | | | | | | [place] [address] | | | | + + + + + + | Platelet | 274Comment: Testing | 150 - 400 K/uL | EXTERNAL | | | Count | performed at [facility], [address] | | LAB | | | Plasma | [address], | | | | | | [place] [address] | | | | + + + + + + | MPV | 8.1Comment: Testing | fl | EXTERNAL | | | | performed at [facility], [address] | | LAB | | | | [address], | | | | | | [place] [address] | | | | + + + + + + | Differentia | AUTOMATEDComment: | | EXTERNAL | | | l Type | Testing performed at | | LAB | | | | [facility], [address] | | | | | | [place] | | | | | | [address] | | | | + + + + + + | % Segmented | 71.7Comment: Testing | % | EXTERNAL | | | | performed at [facility], [address] | | LAB | | | Neutrophils | [address], | | | | | | [place] [address] | | | | + + + + + + | % | 15.9Comment: Testing | % | EXTERNAL | | | Lymphocytes | performed at [facility], [address] | | LAB | | | | [address], | | | | | | [place] [address] | | | | + + + + + + | % Monocytes | 9.3Comment: Testing | % | EXTERNAL | | | | performed at [facility], [address] | | LAB | | | | [address], | | | | | | [place] [address] | | | | + + + + + + | % | 2.4Comment: Testing | % | EXTERNAL | | | Eosinophils | performed at [facility], [address] | | LAB | | | | [address], | | | | | | [place] [address] | | | | + + + + + + | % Basophils | 0.7Comment: Testing | % | EXTERNAL | | | | performed at [facility], [address] | | LAB | | | | [address], | | | | | | [place] [address] | | | | + + + + + + | Absolute | 6.7Comment: Testing | 1.9 - 7.4 K/uL | EXTERNAL | | | Segmented | performed at [facility], [address] | | LAB | | | Neutrophils | [address], | | | | | | [place] [address] | | | | + + + + + + | Absolute | 1.5Comment: Testing | 1.0 - 3.9 K/uL | EXTERNAL | | | Lymphocytes | performed at [facility], [address] | | LAB | | | | [address], | | | | | | [place] [address] | | | | + + + + + + | Absolute | 0.9 (H)Comment: Testing | 0 - 0.8 K/uL | EXTERNAL | | | Monocytes | performed at [facility], [address] | | LAB | | | | [address], | | | | | | [place] [address] | | | | + + + + + + | Absolute | 0.2Comment: Testing | 0 - 0.5 K/uL | EXTERNAL | | | Eosinophils | performed at [facility], [address] | | LAB | | | | [address], | | | | | | [place] [address] | | | | + + + + + + | Absolute | 0.1Comment: Testing | 0 - 0.1 K/uL | EXTERNAL | | | Basophils | performed at [facility], [address] | | LAB | | | | [address], | | | | | | [place] [address] | | | | + + + [...] | | performed at [facility] | | LAB | | | | [facility];[place], [place] | | | | | | [address] | | | | + + + [...] | LAB | | | | [address];[place], [place] | | | | | | [address] | | | | + + + + + + | K | 4.0Comment: Testing | 3.5 - 4.9 | EXTERNAL | | | | performed at [facility];[address] | mmol/L | LAB | | | | [address];[place] | | | | | | [address] | | | | + + + + + + | Cl | 102Comment: Testing | 99 - 109 mmol/L | EXTERNAL | | | | performed at [facility];[address] | | LAB | | | | [address];[place] | | | | | | [address] | | | | + + + + + + | CO2 | 27Comment: Testing | 23 - 32 mmol/L | EXTERNAL | | | | performed at [facility];[address] | | LAB | | | | [address];[place] | | | | | | [address] | | | | + + + + + + | Anion Gap | 10Comment: Testing | 5 - 20 mmol/L | EXTERNAL | | | | performed at [facility];[address] | | LAB | | | | [address];[place] | | | | | | [address] | | | | + + + + + + | Glucose, | 128 (H)Comment: Testing | 65 - 99 mg/dL | EXTERNAL | | | Fasting | performed at [facility];[address] | | LAB | | | | [address];[place] | | | | | | [address] | | | | + + + + + + | BUN | 9Comment: Testing | 8 - 25 mg/dL | EXTERNAL | | | | performed at [facility];[address] | | LAB | | | | [address];[place] | | | | | | [address] | | | | + + + + + + | Creatinine | 0.78Comment: Testing | 0.70 - 1.30 | EXTERNAL | | | | performed at [facility];[address] | mg/dL | LAB | | | | [address];[place] | | | | | | [address] | | | | + + + + + + | BUN/Creatin | 12Comment: Testing | | EXTERNAL | | | ine Ratio | performed at [facility];[address] | | LAB | | | | [address];[place] | | | | | | [address] | | | | + + + + + + | Calcium | 8.4 (L)Comment: NOTE NEW | 8.5 - 10.5 | EXTERNAL | | | | REFERENCE RANGETesting | mg/dL | LAB | | | | performed at [facility];[address] | | | | | | [address];[place] | | | | | | [address] | | | | + + + [...] | | | | | at [facility];[address];[place] [address] | | | | + + + [...] 7:38AM | | | Referring Provider Line: [phone] ID: [id number] | | + + + [...] 2014 | | 7:38AM Referring Provider Line: [phone] ID: [id number] | | | |IMPRESSION: | |Unchanged head CT compared to 10/16/2014. | | | |RADIA | | | | Electronically signed by Mariya Calzada MD on Oct 17 2014 7:38AM Referring Provider Dian e: [phone] ID: [id number] | + + Potassium (10/16/2014 [...] | LAB | | | | [address];[place], [place] | | | | | | [address] | | | | + + + [...] 6:08AM | | | Referring Provider Line: [phone] ID: [id number] | | + + + [...] 2014 | | 6:08AM Referring Provider Line: [phone] ID: [id number] | | | |IMPRESSION: | | | |Right-sided drain has been removed. No evidence of interval hemorrhage or worsening mass ef fect. Hypodense subdural collection over the right frontal convexity has increased in size. Serial followup suggested. No other significant interval change. | | | | Electronically signed by Jimbo Mckeon MD on Oct 16 2014 6:08AM Referring Provider Line: [phone] ID: [id number] | + + External Lab: [...] | | | | | [place] [address] | | | | + + + + + + | Non- | 3.62 (L)Comment: Testing | 4.20 - 5.70 | EXTERNAL | | | Red Blood | performed at [facility], [address] | M/uL | LAB | | | Cells | [address], | | | | | Counted | [place] [address] | | | | + + + + + + | Hemoglobin | 11.9 (L)Comment: Testing | 13.2 - 17.0 | EXTERNAL | | | | performed at [facility], [address] | g/dL | LAB | | | | [address], | | | | | | [place] [address] | | | | + + + + + + | Hematocrit, | 36.0 (L)Comment: Testing | 39.0 - 50.0 % | EXTERNAL | | | POC | performed at [facility], [address] | | LAB | | | | [address], | | | | | | [place] [address] | | | | + + + + + + | MCV | 99.4Comment: Testing | 80.0 - 100.0 fl | EXTERNAL | | | | performed at [facility], [address] | | LAB | | | | [address], | | | | | | [place] [address] | | | | + + + + + + | MCH | 32.9Comment: Testing | 27.0 - 34.0 pg | EXTERNAL | | | | performed at [facility], [address] | | LAB | | | [address], | | | | | | [place] [address] | | | | + + + + + + | MCHC | 33.0Comment: Testing | 32.0 - 35.5 | EXTERNAL | | | | performed at [facility], [address] | g/dL | LAB | | | | [address], | | | | | | [place] [address] | | | | + + + + + + | RDW-CV | 59.5 (H)Comment: Testing | 37 - 53 fl | EXTERNAL | | | | performed at [facility], [address] | | LAB | | | | [address], | | | | | | [place] [address] | | | | + + + + + + | Platelet | 201Comment: Testing | 150 - 400 K/uL | EXTERNAL | | | Count | performed at [facility], [address] | | LAB | | | Plasma | [address], | | | | | | [place] [address] | | | | + + + + + + | MPV | 8.2Comment: Testing | fl | EXTERNAL | | | | performed at [facility], [address] | | LAB | | | | [address], | | | | | | [place] [address] | | | | + + + + + + | Differentia | AUTOMATEDComment: | | EXTERNAL | | | l Type | Testing performed at | | LAB | | | | [facility], [address] | | | | | | [place] | | | | | | [address] | | | | + + + + + + | % Segmented | 77.8Comment: Testing | % | EXTERNAL | | | | performed at [facility], [address] | | LAB | | | Neutrophils | [address], | | | | | | [place] [address] | | | | + + + [...] | | | | | [place] [address] | | | | + + + + + + | % | 1.6Comment: Testing | % | EXTERNAL | | | Eosinophils | performed at [facility], [address] | | LAB | | | | [address], | | | | | | [place] [address] | | | | + + + + + + | % Basophils | 0.5Comment: Testing | % | EXTERNAL | | | | performed at [facility], [address] | | LAB | | | | [address], | | | | | | [place] [address] | | | | + + + + + + | Absolute | 6.8Comment: Testing | 1.9 - 7.4 K/uL | EXTERNAL | | | Segmented | performed at [facility], [address] | | LAB | | | Neutrophils | [address], | | | | | | [place] [address] | | | | + + + + + + | Absolute | 0.8 (L)Comment: Testing | 1.0 - 3.9 K/uL | EXTERNAL | | | Lymphocytes | performed at [facility], [address] | | LAB | | | | [address], | | | | | | [place] [address] | | | | + + + + + + | Absolute | 0.9 (H)Comment: Testing | 0 - 0.8 K/uL | EXTERNAL | | | Monocytes | performed at [facility], [address] | | LAB | | | | [address], | | | | | | [place] [address] | | | | + + + + + + | Absolute | 0.1Comment: Testing | 0 - 0.5 K/uL | EXTERNAL | | | Eosinophils | performed at [facility], [address] | | LAB | | | [address], | | | | | | [place] [address] | | | | + + + + + + | Absolute | 0.0Comment: Testing | 0 - 0.1 K/uL | EXTERNAL | | | Basophils | performed at [facility], [address] | | LAB | | | | [address], | | | | | | [place] [address] | | | | + + + [...] | | | | | [place] [address] | | | | + + + + + + | K | 3.4 (L)Comment: Testing | 3.5 - 4.9 | EXTERNAL | | | | performed at [facility], [address] | mmol/L | LAB | | | | [address], | | | | | | [place] [address] | | | | + + + + + + | Cl | 102Comment: Testing | 99 - 109 mmol/L | EXTERNAL | | | | performed at [facility], [address] | | LAB | | | | [address], | | | | | | [place] [address] | | | | + + + + + + | CO2 | 27Comment: Testing | 23 - 32 mmol/L | EXTERNAL | | | | performed at [facility], [address] | | LAB | | | | [address], | | | | | | [place] [address] | | | | + + + + + + | Anion Gap | 12Comment: Testing | 5 - 20 mmol/L | EXTERNAL | | | | performed at [facility], [address] | | LAB | | | | [address], | | | | | | [place] [address] | | | | + + + + + + | Glucose, | 151 (H)Comment: Testing | 65 - 99 mg/dL | EXTERNAL | | | Fasting | performed at [facility], [address] | | LAB | | | | [address], | | | | | | [place] [address] | | | | + + + + + + | BUN | 8Comment: Testing | 8 - 25 mg/dL | EXTERNAL | | | | performed at [facility], [address] | | LAB | | | | [address], | | | | | | [place] [address] | | | | + + + + + + | Creatinine | 0.44 (L)Comment: Testing | 0.70 - 1.30 | EXTERNAL | | | | performed at [facility], [address] | mg/dL | LAB | | | | [address], | | | | | | [place] [address] | | | | + + + + + + | BUN/Creatin | 18Comment: Testing | | EXTERNAL | | | ine Ratio | performed at [facility], [address] | | LAB | | | | [address], | | | | | | [place] [address] | | | | + + + + + + | Calcium | 9.1Comment: NOTE NEW | 8.5 - 10.5 | EXTERNAL | | | | REFERENCE RANGETesting | mg/dL | LAB | | | | performed at [facility], [address] | | | | | | [facility], | | | | | | [place] [address] | | | | + + [...] | | | | | | at [facility], [address] | | | | | | [facility] | | | | | | [place] [address] | | | | + + + [...] LAB | | | | performed at [facility] | | | | | | [address];[place], [place] | | | | | | [address] | | | | + + + [...] | | | | | [place] [address] | | | | + + + + + + | Non- | 3.36 (L)Comment: Testing | 4.20 - 5.70 | EXTERNAL | | | Red Blood | performed at [facility], [address] | M/uL | LAB | | | Cells | [address], | | | | | Counted | [place] [address] | | | | + + + + + + | Hemoglobin | 11.1 (L)Comment: Testing | 13.2 - 17.0 | EXTERNAL | | | | performed at [facility], [address] | g/dL | LAB | | | | [address], | | | | | | [place] [address] | | | | + + + + + + | Hematocrit, | 34.0 (L)Comment: Testing | 39.0 - 50.0 % | EXTERNAL | | | POC | performed at [facility], [address] | | LAB | | | | [address], | | | | | | [place] [address] | | | | + + + + + + | MCV | 101.0 (H)Comment: | 80.0 - 100.0 fl | EXTERNAL | | | | Testing performed at | | LAB | | | | [facility], [address] | | | | | | [place] | | | | | | [address] | | | | + + + + + + | MCH | 33.1Comment: Testing | 27.0 - 34.0 pg | EXTERNAL | | | | performed at [facility], [address] | | LAB | | | | [address], | | | | | | [place] [address] | | | | + + + + + + | MCHC | 32.7Comment: Testing | 32.0 - 35.5 | EXTERNAL | | | | performed at [facility], [address] | g/dL | LAB | | | | [address], | | | | | | [place] [address] | | | | + + + + + + | RDW-CV | 59.1 (H)Comment: Testing | 37 - 53 fl | EXTERNAL | | | | performed at [facility], [address] | | LAB | | | | [address], | | | | | | [place] [address] | | | | + + + + + + | Platelet | 162Comment: Testing | 150 - 400 K/uL | EXTERNAL | | | Count | performed at [facility], [address] | | LAB | | | Plasma | [address], | | | | | | [place] [address] | | | | + + + + + + | MPV | 8.6Comment: Testing | fl | EXTERNAL | | | | performed at [facility], [address] | | LAB | | | | [address], | | | | | | [place] [address] | | | | + + + + + + | Differentia | AUTOMATEDComment: | | EXTERNAL | | | l Type | Testing performed at | | LAB | | | | [facility], [address] | | | | | | [place] | | | | | | [address] | | | | + + + + + + | % Segmented | 72.7Comment: Testing | % | EXTERNAL | | | | performed at [facility], [address] | | LAB | | | Neutrophils | [address], | | | | | | [place] [address] | | | | + + + + + + | % | 12.1Comment: Testing | % | EXTERNAL | | | Lymphocytes | performed at [facility], [address] | | LAB | | | | [address], | | | | | | [place] [address] | | | | + + + [...] | | | | | [place] [address] | | | | + + + + + + | % Basophils | 0.5Comment: Testing | % | EXTERNAL | | | | performed at [facility], [address] | | LAB | | | | [address], | | | | | | [place] [address] | | | | + + + + + + | Absolute | 5.9Comment: Testing | 1.9 - 7.4 K/uL | EXTERNAL | | | Segmented | performed at [facility], [address] | | LAB | | | Neutrophils | [address], | | | | | | [place] [address] | | | | + + + + + + | Absolute | 1.0Comment: Testing | 1.0 - 3.9 K/uL | EXTERNAL | | | Lymphocytes | performed at [facility], [address] | | LAB | | | | [address], | | | | | | [place] [address] | | | | + + + + + + | Absolute | 1.1 (H)Comment: Testing | 0 - 0.8 K/uL | EXTERNAL | | | Monocytes | performed at [facility], [address] | | LAB | | | | [address], | | | | | | [place] [address] | | | | + + + + + + | Absolute | 0.1Comment: Testing | 0 - 0.5 K/uL | EXTERNAL | | | Eosinophils | performed at [facility], [address] | | LAB | | | | [address], | | | | | | [place] [address] | | | | + + + + + + | Absolute | 0.0Comment: Testing | 0 - 0.1 K/uL | EXTERNAL | | | Basophils | performed at [facility], [address] | | LAB | | | | [address], | | | | | | [place] [address] | | | | + + + [...] | | | | | [place] [address] | | | | + + + + + + | K | 3.8Comment: Testing | 3.5 - 4.9 | EXTERNAL | | | | performed at [facility], [address] | mmol/L | LAB | | | | [address], | | | | | | [place] [address] | | | | + + + + + + | Cl | 105Comment: Testing | 99 - 109 mmol/L | EXTERNAL | | | | performed at [facility], [address] | | LAB | | | | [address], | | | | | | [place] [address] | | | | + + + + + + | CO2 | 28Comment: Testing | 23 - 32 mmol/L | EXTERNAL | | | | performed at [facility], [address] | | LAB | | | | [address], | | | | | | [place] [address] | | | | + + + + + + | Anion Gap | 8Comment: Testing | 5 - 20 mmol/L | EXTERNAL | | | | performed at [facility], [address] | | LAB | | | | [address], | | | | | | [place] [address] | | | | + + + + + + | Glucose, | 112 (H)Comment: Testing | 65 - 99 mg/dL | EXTERNAL | | | Fasting | performed at [facility], [address] | | LAB | | | | [address], | | | | | | [place] [address] | | | | + + + + + + | BUN | 8Comment: Testing | 8 - 25 mg/dL | EXTERNAL | | | | performed at [facility], [address] | | LAB | | | | [address], | | | | | | [place] [address] | | | | + + + + + + | Creatinine | 0.51 (L)Comment: Testing | 0.70 - 1.30 | EXTERNAL | | | | performed at [facility], [address] | mg/dL | LAB | | | | [address], | | | | | | [place] [address] | | | | + + + + + + | BUN/Creatin | 16Comment: Testing | | EXTERNAL | | | ine Ratio | performed at [facility], [address] | | LAB | | | | [address], | | | | | | [place] [address] | | | | + + + + + + | Calcium | 8.5Comment: NOTE NEW | 8.5 - 10.5 | EXTERNAL | | | | REFERENCE RANGETesting | mg/dL | LAB | | | | performed at [facility], [address] | | | | | | [address], | | | | | | [place] [address] | | | | + + + [...] | | | | | | at [facility], [address] | | | | | | [address], | | | | | | [place] [address] | | | | + + + [...] [place] | | | | | | [address] | | | | + + + + + + | K | 3.5Comment: Testing | 3.5 - 4.9 | EXTERNAL | | | | performed at [facility];[address] | mmol/L | LAB | | | | [address];[place] | | | | | | [address] | | | | + + + + + + | Cl | 103Comment: Testing | 99 - 109 mmol/L | EXTERNAL | | | | performed at [facility] | | LAB | | | | [address];[place] | | | | | | [address] | | | | + + + + + + | CO2 | 26Comment: Testing | 23 - 32 mmol/L | EXTERNAL | | | | performed at [facility];[address] | | LAB | | | | [address];[place] | | | | | | [address] | | | | + + + + + + | Anion Gap | 13Comment: Testing | 5 - 20 mmol/L | EXTERNAL | | | | performed at [facility];[address] | | LAB | | | | [address];[place] | | | | | | [address] | | | | + + + + + + | Glucose, | 134 (H)Comment: Testing | 65 - 99 mg/dL | EXTERNAL | | | Fasting | performed at [facility];[address] | | LAB | | | | [address];[place] | | | | | | [address] | | | | + + + + + + | BUN | 9Comment: Testing | 8 - 25 mg/dL | EXTERNAL | | | | performed at [facility];[address] | | LAB | | | | [address];[place] | | | | | | [address] | | | | + + + + + + | Creatinine | 0.75Comment: Testing | 0.70 - 1.30 | EXTERNAL | | | | performed at [facility];[place] | mg/dL | LAB | | | | [address];[place] | | | | | | [address] | | | | + + + + + + | BUN/Creatin | 12Comment: Testing | | EXTERNAL | | | ine Ratio | performed at [facility];[address] | | LAB | | | | [address];[place] | | | | | | [address] | | | | + + + + + + | Calcium | 8.3 (L)Comment: NOTE NEW | 8.5 - 10.5 | EXTERNAL | | | | REFERENCE RANGETesting | mg/dL | LAB | | | | performed at [facility];[address] | | | | | | [address];[place] | | | | | | [address] | | | | + + + [...] | | | | | at [facility];[address] [place] [address] | | | | | | Blvd;[place] [address] | | | | + + + [...] | LAB | | | | [address];[place] | | | | | | [address] | | | | + + + [...] | | | Fingerstick | performed at [facility];[address] | | LAB | | | | [address];[place] | | | | | | [address] | | | | + + + [...] 5.02 cm D-E Excursion: 1.80 cm E-F [place]: | | | 0.08 m/s EPSS: 0.51 [...] TV A [place]: 0.19 m/s TV Dec [place]: 1.11 m/s2 TV Dec Time: | | | 421.97 ms TV E [place]: 0.47 m/s TV E/A Ratio: 2.39 | | | Adjunct Sociology Professor: GD Authenticated by: VISH ACOSTA MD Report [...] | Index (A-L): 25.12 ml/m2LAAs A2C: 17.63 [id number] A-L A2C: 49.96 mlLAESV MOD A2C: | | 47.06 mlLALs A2C: 5.28 cmLAAs A4C: 18.21 [id number] A-L A4C: 56.04 mlLAESV MOD A4C: | | 48.84 mlLALs A4C: 5.02 cmD-E Excursion: 1.80 cmE-F [place]: 0.08 m/sEPSS: 0.51 | | cmHR: 50.85 BPMAV maxP.46 mmHgAV meanP.08 mmHgAV Vmax: 1.16 m/Dmitry Vmean: | | 0.83 m/Dmitry VTI: 24.68 cmAVA Vmax: 3.04 cm2AVA (VTI): 2.96 [id number] Dopp: 1.67 | | [id number] Dopp: 3.62 l/minHR: 49.54 BPMLVOT maxP.42 mmHgLVOT [...] 1.86 m/sTV A [place]: 0.19 m/sTV Dec [place]: 1.11 m/s2TV | | Dec Time: 421.97 msTV E [place]: 0.47 m/sTV E/A Ratio: 2.39 Adjunct Sociology Professor: | | GDAuthenticated by: VISH ACOSTA MDReport [...] | |D-E [place]curs[place]: 1.80 cm | |E-F [place]: 0.08 m/s | |EPSS: 0.51 cm | [...] A [place]: 0.19 m/s | |TV Dec [place]: 1.11 m/s2 | |TV Dec Time: 421.97 ms | |TV E [place]: 0.47 m/s | |TV E/A Ratio: 2.39 | | | |Adjunct Sociology Professor: GD | |Authenticated by: VISH ACOSTA MD [...] At | + + + | JIMENEZ DEVIKA XR CHEST 1 VIEW 10/14/2014 8:36 AM [...] Conversion - 05/05/2019 12:20 AM PDT TONY FORTUNEXR CHEST 1 | | VIEW10/14/2014 8:36 AM [...] | | | 5:24AM Referring Provider Line: [id number] ID: [id number] | | + + + [...] 2014 | | 5:24AM Referring Provider Line: [id number] ID: [id number] | | | |IMPRESSION: | [...] Oct 14 2014 5:24AM Referring Provider Line: [id number] ID: [id number] | + + External Lab: CBC (10/14/2014 4:15 AM PST) + + + + + + | Component | Value | Ref Range | Performed | Pathologist | | | | | At | Signature | + + + + + + | WBC | 9.8Comment: Testing | 3.8 - 11.0 K/uL | EXTERNAL | | | | performed at [facility], [address] | | LAB | | | | [address], | | | | | | [place] [address] | | | | + + + + + + | Non- | 2.96 (L)Comment: Testing | 4.20 - 5.70 | EXTERNAL | | | Red Blood | performed at [facility], [address] | [address]/uL | LAB | | | Cells | [address], | | | | | Counted | [place] [address] | | | | + + + + + + | Hemoglobin | 9.7 (L)Comment: Testing | 13.2 - 17.0 | EXTERNAL | | | | performed at [facility], [address] | g/dL | LAB | | | | [address], | | | | | | [place] [address] | | | | + + + + + + | Hematocrit, | 29.4 (L)Comment: Testing | 39.0 - 50.0 % | EXTERNAL | | | POC | performed at [facility], [address] | | LAB | | | | [address], | | | | | | [place] [address] | | | | + + + + + + | MCV | 99.5Comment: Testing | 80.0 - 100.0 fl | EXTERNAL | | | | performed at [facility], [address] | | LAB | | | | [address], | | | | | | [place] [address] | | | | + + + + + + | MCH | 32.7Comment: Testing | 27.0 - 34.0 pg | EXTERNAL | | | | performed at [facility], [address] | | LAB | | | | [address], | | | | | | [place] [address] | | | | + + + + + + | MCHC | 32.9Comment: Testing | 32.0 - 35.5 | EXTERNAL | | | | performed at [facility], [address] | g/dL | LAB | | | | [address], | | | | | | [place] [address] | | | | + + + + + + | RDW-CV | 59.1 (H)Comment: Testing | 37 - 53 fl | EXTERNAL | | | | performed at [facility], [address] | | LAB | | | | [address], | | | | | | [place] [address] | | | | + + + + + + | Platelet | 124 (L)Comment: Testing | 150 - 400 K/uL | EXTERNAL | | | Count | performed at [facility], [address] | | LAB | | | Plasma | [address], | | | | | | [place] [address] | | | | + + + + + + | MPV | 8.6Comment: Testing | fl | EXTERNAL | | | | performed at [facility], [address] | | LAB | | | | [address], | | | | | | [place] [address] | | | | + + + + + + | Differentia | AUTOMATEDComment: | | EXTERNAL | | | l Type | Testing performed at | | LAB | | | | [facility], [address] | | | | | | [place] | | | | | | [address] | | | | + + + + + + | % Segmented | 81.9Comment: Testing | % | EXTERNAL | | | | performed at [facility], [address] | | LAB | | | Neutrophils | [address], | | | | | | [place] [address] | | | | + + + + + + | % | 7.9Comment: Testing | % | EXTERNAL | | | Lymphocytes | performed at [facility], [address] | | LAB | | | | [address], | | | | | | [place] [address] | | | | + + + + + + | % Monocytes | 9.3Comment: Testing | % | EXTERNAL | | | | performed at [facility], [address] | | LAB | | | | [address], | | | | | | [place] [address] | | | | + + + + + + | % | 0.7Comment: Testing | % | EXTERNAL | | | Eosinophils | performed at [facility], [address] | | LAB | | | | [address], | | | | | | [place] [address] | | | | + + + [...] | | | | | [place] [address] | | | | + + + + + + | Absolute | 0.8 (L)Comment: Testing | 1.0 - 3.9 K/uL | EXTERNAL | | | Lymphocytes | performed at [facility], [address] | | LAB | | | | [address], | | | | | | [place] [address] | | | | + + + + + + | Absolute | 0.9 (H)Comment: Testing | 0 - 0.8 K/uL | EXTERNAL | | | Monocytes | performed at [facility], [address] | | LAB | | | | [address], | | | | | | [place] [address] | | | | + + + + + + | Absolute | 0.1Comment: Testing | 0 - 0.5 K/uL | EXTERNAL | | | Eosinophils | performed at [facility], [address] | | LAB | | | | [address], | | | | | | [place] [address] | | | | + + + + + + | Absolute | 0.0Comment: Testing | 0 - 0.1 K/uL | EXTERNAL | | | Basophils | performed at [facility], [address] | | LAB | | | | [address], | | | | | | [place] [address] | | | | + + + [...] | | | | | [place] [address] | | | | + + + + + + | K | 3.8Comment: Testing | 3.5 - 4.9 | EXTERNAL | | | | performed at [facility], [address] | mmol/L | LAB | | | | [address], | | | | | | [place] [address] | | | | + + + + + + | Cl | 109Comment: Testing | 99 - 109 mmol/L | EXTERNAL | | | | performed at [facility], [address] | | LAB | | | | [address], | | | | | | [place] [address] | | | | + + + + + + | CO2 | 22 (L)Comment: Testing | 23 - 32 mmol/L | EXTERNAL | | | | performed at [facility], [address] | | LAB | | | | [address], | | | | | | [place] [address] | | | | + + + + + + | Anion Gap | 9Comment: Testing | 5 - 20 mmol/L | EXTERNAL | | | | performed at [facility], [address] | | LAB | | | | [address], | | | | | | [place] [address] | | | | + + + + + + | Glucose, | 174 (H)Comment: Testing | 65 - 99 mg/dL | EXTERNAL | | | Fasting | performed at [facility], [address] | | LAB | | | | [address], | | | | | | [place] [address] | | | | + + + + + + | BUN | 9Comment: Testing | 8 - 25 mg/dL | EXTERNAL | | | | performed at [facility], [address] | | LAB | | | | [address], | | | | | | [place] [address] | | | | + + + + + + | Creatinine | 0.50 (L)Comment: Testing | 0.70 - 1.30 | EXTERNAL | | | | performed at [facility], [address] | mg/dL | LAB | | | | [address], | | | | | | [place] [address] | | | | + + + + + + | BUN/Creatin | 18Comment: Testing | | EXTERNAL | | | ine Ratio | performed at [facility], [address] | | LAB | | | | [address], | | | | | | [place] [address] | | | | + + + + + + | Calcium | 7.7 (L)Comment: NOTE NEW | 8.5 - 10.5 | EXTERNAL | | | | REFERENCE RANGETesting | mg/dL | LAB | | | | performed at [facility], [address] | | | | | | [facility], | | | | | | [place] [address] | | | | + + + [...] | | | | | | at [facility], [address] | | | | | | [address], | | | | | | [place] [address] | | | | + + + [...] | | performed at [facility] | | LAB | | | | [address];[place] | | | | | | [address] | | | | + + + [...] | | | | | at [facility];[address] [place] [address] | | | | | | [facility];[place] [address] | | | | + + + [...] | LAB | | | | [address];[place] | | | | | | [address] | | | | + + + [...] Rad Conversion - 05/05/2019 12:20 AM PDT JIMENEZ [id number] yearsXR | | CHEST 1 VIEW10/13/2014 3:50 [...] Rad Conversion - 05/05/2019 12:20 AM LENARD FORTUNE [...] | | | | | [place] [address] | | | | + + + + + + | Non- | 2.98 (L)Comment: Testing | 4.20 - 5.70 | EXTERNAL | | | Red Blood | performed at [facility], [address] | M/uL | LAB | | | Cells | [address], | | | | | Counted | [place] [address] | | | | + + + + + + | Hemoglobin | 9.7 (L)Comment: Testing | 13.2 - 17.0 | EXTERNAL | | | | performed at [facility], [address] | g/dL | LAB | | | | [address], | | | | | | [place] [address] | | | | + + + + + + | Hematocrit, | 29.8 (L)Comment: Testing | 39.0 - 50.0 % | EXTERNAL | | | POC | performed at [facility], [address] | | LAB | | | | [address], | | | | | | [place] [address] | | | | + + + + + + | MCV | 100.1 (H)Comment: | 80.0 - 100.0 fl | EXTERNAL | | | | Testing performed at | | LAB | | | | [facility], [address] | | | | | | [place] | | | | | | [address] | | | | + + + + + + | MCH | 32.5Comment: Testing | 27.0 - 34.0 pg | EXTERNAL | | | | performed at [facility], [address] | | LAB | | | | [address], | | | | | | [place] [address] | | | | + + + + + + | MCHC | 32.5Comment: Testing | 32.0 - 35.5 | EXTERNAL | | | | performed at [facility], [address] | g/dL | LAB | | | | [address], | | | | | | [place] [address] | | | | + + + + + + | RDW-CV | 60.4 (H)Comment: Testing | 37 - 53 fl | EXTERNAL | | | | performed at [facility], [address] | | LAB | | | | [address], | | | | | | [place] [address] | | | | + + + + + + | Platelet | 107 (L)Comment: Testing | 150 - 400 K/uL | EXTERNAL | | | Count | performed at [facility], [address] | | LAB | | | Plasma | [address], | | | | | | [place] [address] | | | | + + + + + + | MPV | 8.6Comment: Testing | fl | EXTERNAL | | | | performed at [facility], [address] | | LAB | | | | [address], | | | | | | [place] [address] | | | | + + + + + + | Differentia | AUTOMATEDComment: | | EXTERNAL | | | l Type | Testing performed at | | LAB | | | | [facility], [address] | | | | | | [place] | | | | | | [address] | | | | + + + + + + | % Segmented | 78.6Comment: Testing | % | EXTERNAL | | | | performed at [facility], [address] | | LAB | | | Neutrophils | [address], | | | | | | [place] [address] | | | | + + + + + + | % | 9.1Comment: Testing | % | EXTERNAL | | | Lymphocytes | performed at [facility], [address] | | LAB | | | | [address], | | | | | | [place] [address] | | | | + + + + + + | % Monocytes | 11.3Comment: Testing | % | EXTERNAL | | | | performed at [facility], [address] | | LAB | | | | [address], | | | | | | [place] [address] | | | | + + + + + + | % | 0.5Comment: Testing | % | EXTERNAL | | | Eosinophils | performed at [facility], [address] | | LAB | | | | [address], | | | | | | [place] [address] | | | | + + + + + + | % Basophils | 0.5Comment: Testing | % | EXTERNAL | | | | performed at [facility], [address] | | LAB | | | | [address], | | | | | | [place] [address] | | | | + + + + + + | Absolute | 5.6Comment: Testing | 1.9 - 7.4 K/uL | EXTERNAL | | | Segmented | performed at [facility], [address] | | LAB | | | Neutrophils | [address], | | | | | | [place] [address] | | | | + + + + + + | Absolute | 0.6 (L)Comment: Testing | 1.0 - 3.9 K/uL | EXTERNAL | | | Lymphocytes | performed at [facility], [address] | | LAB | | | | [address], | | | | | | [place] [address] | | | | + + + + + + | Absolute | 0.8Comment: Testing | 0 - 0.8 K/uL | EXTERNAL | | | Monocytes | performed at [facility], [address] | | LAB | | | [address], | | | | | | [place] [address] | | | | + + + + + + | Absolute | 0.0Comment: Testing | 0 - 0.5 K/uL | EXTERNAL | | | Eosinophils | performed at [facility], [address] | | LAB | | | | [address], | | | | | | [place] [address] | | | | + + + + + + | Absolute | 0.0Comment: Testing | 0 - 0.1 K/uL | EXTERNAL | | | Basophils | performed at [facility], [address] | | LAB | | | | [address], | | | | | | [place] [address] | | | | + + + [...] | | | | | [place] [address] | | | | + + + + + + | K | 3.4 (L)Comment: Testing | 3.5 - 4.9 | EXTERNAL | | | | performed at [facility], [address] | mmol/L | LAB | | | | [address], | | | | | | [place] [address] | | | | + + + + + + | Cl | 112 (H)Comment: Testing | 99 - 109 mmol/L | EXTERNAL | | | | performed at [facility], [address] | | LAB | | | | [address], | | | | | | [place] [address] | | | | + + + + + + | CO2 | 19 (L)Comment: Testing | 23 - 32 mmol/L | EXTERNAL | | | | performed at [facility], [address] | | LAB | | | | [address], | | | | | | [place] [address] | | | | + + + + + + | Anion Gap | 10Comment: Testing | 5 - 20 mmol/L | EXTERNAL | | | | performed at [facility], [address] | | LAB | | | | [address], | | | | | | [place] [address] | | | | + + + + + + | Glucose, | 133 (H)Comment: Testing | 65 - 99 mg/dL | EXTERNAL | | | Fasting | performed at [facility], [address] | | LAB | | | | [address], | | | | | | [place] [address] | | | | + + + + + + | BUN | 5 (L)Comment: Testing | 8 - 25 mg/dL | EXTERNAL | | | | performed at [facility], [address] | | LAB | | | | [address], | | | | | | [place] [address] | | | | + + + + + + | Creatinine | 0.47 (L)Comment: Testing | 0.70 - 1.30 | EXTERNAL | | | | performed at [facility], [address] | mg/dL | LAB | | | | [address], | | | | | | [place] [address] | | | | + + + + + + | BUN/Creatin | 11Comment: Testing | | EXTERNAL | | | ine Ratio | performed at [facility], [address] | | LAB | | | | [address], | | | | | | [place] [address] | | | | + + + + + + | Calcium | 7.8 (L)Comment: NOTE NEW | 8.5 - 10.5 | EXTERNAL | | | | REFERENCE RANGETesting | mg/dL | LAB | | | | performed at [facility], [address] | | | | | | [address], | | | | | | [place] [address] | | | | + + + [...] W | | | | | | [address], | | | | | | [place] [address] | | | | + + + [...] LAB | | | | performed at [facility];[address] | | | | | | [address];[place] | | | | | | [address] | | | | + + + [...] LAB | | | | performed at [facility] | | | | | | [facility], [place] | | | | | | [address] | | | | + + + [...] [facility];[address] | | | | | | [facility];[place], [place] | | | | | | [address] | | | | + + + [...] EXTERNAL | | | | performed at [facility], [address] | | LAB | | | | [address], | | | | | | [place] [address] | | | | + + + + + + | Non- | 3.39 (L)Comment: Testing | 4.20 - 5.70 | EXTERNAL | | | Red Blood | performed at [facility], [address] | M/uL | LAB | | | Cells | [address], | | | | | Counted | [place] [address] | | | | + + + + + + | Hemoglobin | 11.1 (L)Comment: Testing | 13.2 - 17.0 | EXTERNAL | | | | performed at [facility], [address] | g/dL | LAB | | | | [address], | | | | | | [place] [address] | | | | + + + + + + | Hematocrit, | 33.5 (L)Comment: Testing | 39.0 - 50.0 % | EXTERNAL | | | POC | performed at [facility], [address] | | LAB | | | | [address], | | | | | | [place] [address] | | | | + + + + + + | MCV | 98.6Comment: Testing | 80.0 - 100.0 fl | EXTERNAL | | | | performed at [facility], [address] | | LAB | | | | [address], | | | | | | [place] [address] | | | | + + + + + + | MCH | 32.7Comment: Testing | 27.0 - 34.0 pg | EXTERNAL | | | | performed at [facility], [address] | | LAB | | | | [address], | | | | | | [place] [address] | | | | + + + + + + | MCHC | 33.1Comment: Testing | 32.0 - 35.5 | EXTERNAL | | | | performed at [facility], [address] | g/dL | LAB | | | | [address], | | | | | | [place] [address] | | | | + + + + + + | RDW-CV | 59.5 (H)Comment: Testing | 37 - 53 fl | EXTERNAL | | | | performed at [facility], [address] | | LAB | | | | [address], | | | | | | [place] [address] | | | | + + + + + + | Platelet | 138 (L)Comment: Testing | 150 - 400 K/uL | EXTERNAL | | | Count | performed at [facility], [address] | | LAB | | | Plasma | [address], | | | | | | [place] [address] | | | | + + + + + + | MPV | 8.4Comment: Testing | fl | EXTERNAL | | | | performed at [facility], [address] | | LAB | | | | [address], | | | | | | [place] [address] | | | | + + + + + + | Differentia | AUTOMATEDComment: | | EXTERNAL | | | l Type | Testing performed at | | LAB | | | | [facility], [address] | | | | | | [place] | | | | | | [address] | | | | + + + + + + | % Segmented | 79.3Comment: Testing | % | EXTERNAL | | | | performed at [facility], [address] | | LAB | | | Neutrophils | [address], | | | | | | [place] [address] | | | | + + + + + + | % | 7.8Comment: Testing | % | EXTERNAL | | | Lymphocytes | performed at [facility], [address] | | LAB | | | | [address], | | | | | | [place] [address] | | | | + + + + + + | % Monocytes | 12.1Comment: Testing | % | EXTERNAL | | | | performed at [facility], [address] | | LAB | | | | [address], | | | | | | [place] [address] | | | | + + + + + + | % | 0.3Comment: Testing | % | EXTERNAL | | | Eosinophils | performed at [facility], [address] | | LAB | | | | [address], | | | | | | [place] [address] | | | | + + + + + + | % Basophils | 0.5Comment: Testing | % | EXTERNAL | | | | performed at [facility], [address] | | LAB | | | | [address], | | | | | | [place] [address] | | | | + + + + + + | Absolute | 7.2Comment: Testing | 1.9 - 7.4 K/uL | EXTERNAL | | | Segmented | performed at [facility], [address] | | LAB | | | Neutrophils | [address], | | | | | | [place] [address] | | | | + + + + + + | Absolute | 0.7 (L)Comment: Testing | 1.0 - 3.9 K/uL | EXTERNAL | | | Lymphocytes | performed at [facility], [address] | | LAB | | | | [address], | | | | | | [place] [address] | | | | + + + + + + | Absolute | 1.1 (H)Comment: Testing | 0 - 0.8 K/uL | EXTERNAL | | | Monocytes | performed at [facility], [address] | | LAB | | | | [address], | | | | | | [place] [address] | | | | + + + + + + | Absolute | 0.0Comment: Testing | 0 - 0.5 K/uL | EXTERNAL | | | Eosinophils | performed at [facility], [address] | | LAB | | | | [address], | | | | | | [place] [address] | | | | + + + + + + | Absolute | 0.0Comment: Testing | 0 - 0.1 K/uL | EXTERNAL | | | Basophils | performed at [facility], [address] | | LAB | | | | [address], | | | | | | [place] [address] | | | | + + + [...] EXTERNAL | | | | performed at [facility], [address] | | LAB | | | | [address], | | | | | | [place] [address] | | | | + + + [...] | | | | | [place] [address] | | | | + + + + + + | K | 2.8 (L)Comment: Testing | 3.5 - 4.9 | EXTERNAL | | | | performed at [facility], [address] | mmol/L | LAB | | | | [address], | | | | | | [place] [address] | | | | + + + + + + | Cl | 105Comment: Testing | 99 - 109 mmol/L | EXTERNAL | | | | performed at [facility], [address] | | LAB | | | [address], | | | | | | [place] [address] | | | | + + + + + + | CO2 | 23Comment: Testing | 23 - 32 mmol/L | EXTERNAL | | | | performed at [facility], [address] | | LAB | | | | [address], | | | | | | [place] [address] | | | | + + + + + + | Anion Gap | 9Comment: Testing | 5 - 20 mmol/L | EXTERNAL | | | | performed at [facility], [address] | | LAB | | | | [address], | | | | | | [place] [address] | | | | + + + + + + | Glucose, | 163 (H)Comment: Testing | 65 - 99 mg/dL | EXTERNAL | | | Fasting | performed at [facility], [address] | | LAB | | | | [address], | | | | | | [place] [address] | | | | + + + + + + | BUN | 7 (L)Comment: Testing | 8 - 25 mg/dL | EXTERNAL | | | | performed at [facility], [address] | | LAB | | | | [address], | | | | | | [place] [address] | | | | + + + + + + | Creatinine | 0.57 (L)Comment: Testing | 0.70 - 1.30 | EXTERNAL | | | | performed at [facility], [address] | mg/dL | LAB | | | | [address], | | | | | | [place] [address] | | | | + + + + + + | BUN/Creatin | 12Comment: Testing | | EXTERNAL | | | ine Ratio | performed at [facility], [address] | | LAB | | | | [address], | | | | | | [place] [address] | | | | + + + + + + | Calcium | 7.8 (L)Comment: NOTE NEW | 8.5 - 10.5 | EXTERNAL | | | | REFERENCE RANGETesting | mg/dL | LAB | | | | performed at [facility], [address] | | | | | | [address], | | | | | | [place] [address] | | | | + + + [...] | | | | | | at [facility], [address] | | | | | | [address], | | | | | | [place] [address] | | | | + + + [...] [place] | | | | | | [address] | | | | + + + + + + | Non- | 3.63 (L)Comment: Testing | 4.20 - 5.70 | EXTERNAL | | | Red Blood | performed at [facility];[address] | M/uL | LAB | | | Cells | [address];[place] | | | | | Counted | [address] | | | | + + + + + + | Hemoglobin | 10.9 (L)Comment: Testing | 13.2 - 17.0 | EXTERNAL | | | | performed at [facility];[address] | g/dL | LAB | | | | [address];[place] | | | | | | [address] | | | | + + + + + + | Hematocrit, | 34.9 (L)Comment: Testing | 39.0 - 50.0 % | EXTERNAL | | | POC | performed at [facility];[address] | | LAB | | | | [address];[place] | | | | | | [address] | | | | + + + + + + | MCV | 96.2Comment: Testing | 80.0 - 100.0 fl | EXTERNAL | | | | performed at [facility];[address] | | LAB | | | | [address];[place] | | | | | | [address] | | | | + + + + + + | MCH | 30.0Comment: Testing | 27.0 - 34.0 pg | EXTERNAL | | | | performed at [facility];[address] | | LAB | | | | [address];[place] | | | | | | [address] | | | | + + + + + + | MCHC | 31.2 (L)Comment: Testing | 32.0 - 35.5 | EXTERNAL | | | | performed at [facility];[address] | g/dL | LAB | | | | [address];[place] | | | | | | [address] | | | | + + + + + + | RDW-CV | 58.6 (H)Comment: Testing | 37 - 53 fl | EXTERNAL | | | | performed at [facility];[address] | | LAB | | | | [address];[place] | | | | | | [address] | | | | + + + + + + | Platelet | 164Comment: Testing | 150 - 400 K/uL | EXTERNAL | | | Count | performed at [facility];[address] | | LAB | | | Plasma | [address];[place] | | | | | | [address] | | | | + + + + + + | MPV | 7.8Comment: Testing | fl | EXTERNAL | | | | performed at [facility];[address] | | LAB | | | | [address];[place] | | | | | | [address] | | | | + + + + + + | Differentia | AUTOMATEDComment: | | EXTERNAL | | | l Type | Testing performed at | | LAB | | | | [facility];[address];[place] [id number] | | | | + + + + + + | % Segmented | 72.3Comment: Testing | % | EXTERNAL | | | | performed at [facility];[address] | | LAB | | | Neutrophils | [address];[place] | | | | | | [address] | | | | + + + + + + | % | 13.2Comment: Testing | % | EXTERNAL | | | Lymphocytes | performed at [facility];[address] | | LAB | | | | [address];[place] | | | | | | [address] | | | | + + + + + + | % Monocytes | 13.4Comment: Testing | % | EXTERNAL | | | | performed at [facility];[address] | | LAB | | | | [address];[place] | | | | | | [address] | | | | + + + + + + | % | 0.3Comment: Testing | % | EXTERNAL | | | Eosinophils | performed at [facility];[address] | | LAB | | | | [address];[place] | | | | | | [address] | | | | + + + + + + | % Basophils | 0.8Comment: Testing | % | EXTERNAL | | | | performed at [facility];[address] | | LAB | | | | [address];[place] | | | | | | [address] | | | | + + + + + + | Absolute | 7.0Comment: Testing | 1.9 - 7.4 K/uL | EXTERNAL | | | Segmented | performed at [facility];[address] | | LAB | | | Neutrophils | [address];[place] | | | | | | [address] | | | | + + + + + + | Absolute | 1.3Comment: Testing | 1.0 - 3.9 K/uL | EXTERNAL | | | Lymphocytes | performed at [facility];[address] | | LAB | | | | [address];[place] | | | | | | [address] | | | | + + + + + + | Absolute | 1.3 (H)Comment: Testing | 0 - 0.8 K/uL | EXTERNAL | | | Monocytes | performed at [facility];[address] | | LAB | | | | [address];[place] | | | | | | [address] | | | | + + + + + + | Absolute | 0.0Comment: Testing | 0 - 0.5 K/uL | EXTERNAL | | | Eosinophils | performed at [facility];[address] | | LAB | | | | [address];[place] | | | | | | [address] | | | | + + + + + + | Absolute | 0.1Comment: Testing | 0 - 0.1 K/uL | EXTERNAL | | | Basophils | performed at [facility];[address] | | LAB | | | | [address];[place], [place] | | | | | | [address] | | | | + + + [...] | Testing performed at [facility];[address] [place] [address];[place] [address] MRSA PCR | | | NEGATIVE Testing performed at | | | [address];[place] [address] | | + + + + +---------+ [...] REMY | | | Testing performed at [facility], [address], [place] | | | [address] | | + + + + +---------+ [...] | LAB | | | | [address];[place], [place] | | | | | | [address] | | | | + + + [...] | LAB | | | | [address];[place], [place] | | | | | | [address] | | | | + + + [...] | | Total | performed at [facility];[address] | | LAB | | | | [address];[place] | | | | | | [address] | | | | + + + + + + | Albumin | 2.8 (L)Comment: Testing | 3.6 - 5.0 g/dL | EXTERNAL | | | | performed at [facility];[address] | | LAB | | | | [address];[place] | | | | | | [address] | | | | + + + + + + | Bilirubin | 1.6 (H)Comment: Testing | 0.1 - 1.5 mg/dL | EXTERNAL | | | Total | performed at [facility];[address] | | LAB | | | | [address];[place] | | | | | | [address] | | | | + + + + + + | Bilirubin | 0.6 (H)Comment: Testing | 0.0 - 0.3 mg/dL | EXTERNAL | | | Direct | performed at [facility];[address] | | LAB | | | | [address];[place] | | | | | | [address] | | | | + + + + + + | ALP, | 138 (H)Comment: Testing | 35 - 115 U/L | EXTERNAL | | | External | performed at [facility];[address] | | LAB | | | | [address];[place] | | | | | | [address] | | | | + + + + + + | AST | 61 (H)Comment: Testing | 10 - 45 U/L | EXTERNAL | | | | performed at [facility];[address] | | LAB | | | | [address];[place] | | | | | | [address] | | | | + + + + + + | ALT | 54Comment: Testing | 10 - 65 U/L | EXTERNAL | | | | performed at [facility];[address] | | LAB | | | | [address];[place] | | | | | | [address] | | | | + + + [...] 11 October 2014. | | | FINDINGS: Acid Condenser is unremarkable. The patient is post interval [...] examination: 11 October 2014. | | FINDINGS: Acid Condenser is unremarkable. The patient is post interval [...] | LAB | | | | [address];[place], [place] | | | | | | [address] | | | | + + + + + + | K | 2.7 (LL)Comment: RESULT | 3.5 - 4.9 | EXTERNAL | | | | READ BACK BY:TAYA Price IN [place] | mmol/L | LAB | | | | AT 2012 BY FANNY ON | | | | | | [id number] performed | | | | | | at [facility];[address];[place] [address] | | | | + + + + + + | Cl | 102Comment: Testing | 99 - 109 mmol/L | EXTERNAL | | | | performed at [facility];[address] | | LAB | | | | [address];[place] | | | | | | [address] | | | | + + + + + + | CO2 | 25Comment: Testing | 23 - 32 mmol/L | EXTERNAL | | | | performed at [facility];[address] | | LAB | | | | [address];[place] | | | | | | [address] | | | | + + + + + + | Anion Gap | 14Comment: Testing | 5 - 20 mmol/L | EXTERNAL | | | | performed at [facility];[address] | | LAB | | | | [address];[place] | | | | | | [address] | | | | + + + + + + | Glucose, | 143 (H)Comment: Testing | 65 - 99 mg/dL | EXTERNAL | | | Fasting | performed at [facility];[address] | | LAB | | | | [address];[place] | | | | | | [address] | | | | + + + + + + | BUN | 7 (L)Comment: Testing | 8 - 25 mg/dL | EXTERNAL | | | | performed at [facility];[address] | | LAB | | | | [address];[place] | | | | | | [address] | | | | + + + + + + | Creatinine | 0.68 (L)Comment: Testing | 0.70 - 1.30 | EXTERNAL | | | | performed at [facility];[address] | mg/dL | LAB | | | | [address];[place] | | | | | | [address] | | | | + + + + + + | BUN/Creatin | 10Comment: Testing | | EXTERNAL | | | ine Ratio | performed at [facility];[address] | | LAB | | | | [address];[place] | | | | | | [address] | | | | + + + + + + | Calcium | 7.3 (L)Comment: NOTE NEW | 8.5 - 10.5 | EXTERNAL | | | | REFERENCE RANGETesting | mg/dL | LAB | | | | performed at [facility];[address] | | | | | | [address];[place] | | | | | | [address] | | | | + + + [...] | | | | | at [facility];[address] | [address];[place] [address] | | | | + + + + + + + + | Specimen | + + | Blood specimen | | (specimen) | + + + +---------+ + + | Performing | Address | City/State/Zipcode | Phone Number | | Organization | | | | + +---------+ + + | EXTERNAL LAB | | | | + +---------+ + + POC ISLUZT, CG8, Arterial (10/11/2014 7:48 PM PST) + [...] | | | [facility];[address];[place] [address] | | | | + + + + + + | PCO2 ART | 33 (L)Comment: Testing | 35 - 45 mmHg | EXTERNAL | | | | performed at [facility];[address] | | LAB | | | | [address];[place] | | | | | | [address] | | | | + + + + + + | PO2 ART | 225 (H)Comment: Testing | 80 - 105 mmHg | EXTERNAL | | | | performed at [facility];[address] | | LAB | | | | [address];[place] | | | | | | [address] | | | | + + + + + + | HCO3 ART | 28 (H)Comment: Testing | 22 - 26 mmol/L | EXTERNAL | | | | performed at [facility];[address] | | LAB | | | | [address];[place] | | | | | | [address] | | | | + + + + + + | POC | 29 (H)Comment: Testing | 23 - 27 mEq/L | EXTERNAL | | | APPEARANCE | performed at [facility];[address] | | LAB | | | UA | [address];[place] | | | | | | [address] | | | | + + + + + + | Base | 6 (H)Comment: Testing | 0 - 3 mEq/L | EXTERNAL | | | Excess, | performed at [facility];[address] | | LAB | | | Arterial | [address];[place] | | | | | | [address] | | | | + + + + + + | O2 SAT ART | 100 (H)Comment: Testing | 95 - 98 % | EXTERNAL | | | | performed at [facility];[address] | | LAB | | | | [address];[place] | | | | | | [address] | | | | + + + + + + | Sodium, POC | 138Comment: Testing | 135 - 145 mEq/L | EXTERNAL | | | | performed at [facility];[address] | | LAB | | | | [address];[place] | | | | | | [address] | | | | + + + + + + | Potassium, | 2.6 (LL)Comment: Testing | 3.5 - 5.0 mEq/L | EXTERNAL | | | POC | performed at [facility];[address] | | LAB | | | | [address];[place] | | | | | | [address] | | | | + + + + + + | Ionized | 0.98 (L)Comment: Testing | 1.12 - 1.32 | EXTERNAL | | | Calcium, | performed at [facility];[address] | mmol/L | LAB | | | POC | [address];[place] | | | | | | [address] | | | | + + + + + + | Glucose, | 146 (H)Comment: Testing | 65 - 99 mg/dL | EXTERNAL | | | POC | performed at [facility];[address] | | LAB | | | | [address];[place] | | | | | | [address] | | | | + + + + + + | Hematocrit, | 35 (L)Comment: Testing | 40.0 - 50.0 % | EXTERNAL | | | POC | performed at [facility];[address] | | LAB | | | | [address];[place] | | | | | | [address] | | | | + + + + + + | Hemoglobin, | 11.9 (L)Comment: Testing | 13.7 - 16.7 | EXTERNAL | | | POC | performed at [facility];[address] | g/dL | LAB | | | | [address];[place] | | | | | | [address] | | | | + + + [...]
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
--- OUTSIDE RECORDS SUMMARY | ~2020-04-05 | XMS | Encounter Summary ---
Demographics + + + | Address | [address] | | | [place] [address] | + + + | Home Phone | | + + + | Preferred Language | Unknown | + + + | Marital Status | | + + + | Adventism Affiliation | Unknown | + + + | Race | Unknown | + + + | Ethnic Group | Unknown | + + + Author + + + | Author | [facility] | | | and Oleg[place]ana | + + + | Organization | [facility] | | | [...] Team Providers + +------+ + | Care Box Repairer Name | Role | Phone | + [...] + + | 07/06/ | Telephone | Lane | Tony Yuan, | Other (cancelling | | 2018 | | Orthopedics [address] | [address] | appointment ) | | | | [address] | [facility] [address] | | | | | [place], [place] | [place] [address] | | | | | [address] | [phone] | | | | | [phone] | | | +--------+ + + + [...]
--- OUTSIDE RECORDS SUMMARY | ~2020-04-05 | XMS | Encounter Summary ---
Demographics + + + | Address | [address] | | | [place] [address] | + + + | Home Phone [...] Team Providers + +------+ + | Care Cardiology Coordinator Name | Role | Phone | + +------+ + PCP | Unavailable | + +------+ + Encounter Details +--------+ + + + + | Date | Type | Department | Care Team | Description | +--------+ + + + + | 02/17/ | Results | [facility] | Wade Villalta MD | | | 2002 | Only | & Rehabilitation | [address] | | | | | [address] [facility] | [address] | | | | | Mailcode: PV430 | [place], [place] | | | | | [place] | [address] | | | | | [place], [place] | [phone] | | | | | [address] | | | | | | [phone] | | | +--------+ + + + [...] | | + +---------+ + + | [facility] DEPARTMENT OF | | | | | RADIOLOGY | | | | + +---------+ + + documented in this encounter Visit Diagnoses Not on filedocumented in this encounter"
--- OUTSIDE RECORDS SUMMARY | ~2020-04-05 | XMS | Encounter Summary ---
Demographics + + + | Address | [address] | | | [place] [address] | + + + | Home Phone [...] Team Providers + +------+ + | Care Screwhead Polisher Name | Role | Phone | [...] | Transcriptions | + + | Interface, Book Jacket Cover Machine Operator In - 04/16/2006 1:08 AM PDT | | [address] | | [place], [place] [id number] | | [facility]ORDMed Rec No.: | | [id number] [...] [place] if [...] isgoing to follow up | | in [place], although, if cares to come back here, wewill be happy to see him in Dr. | | Rodo Maldonado, adult orthopedic clinic.Wade Villalta M.D.FARTUN/ellyoD: 02/17/2003T: | | 02/17/2003 12:31 [id number] | |OPERATIONS PERFORMED: The patient was taken [...] is | |going to follow up in [place], although, if cares to come back here, we | |will be happy to see him in Dr. Rodo Maldonado, adult orthopedic clinic. | | | | | | | |Wade Villalta M.D. | | | |[place]onal[place] | | | | P | |[phone] | + + documented in this encounter Visit Diagnoses Not on filedocumented in this encounter"
--- OUTSIDE RECORDS SUMMARY | ~2020-04-05 | XMS | Encounter Summary ---
Demographics + + + | Address | [address] | | | [place] [address] | + + + | Home Phone [...] Team Providers + +------+ + | Care Oyster Tonger Name | Role | Phone | + [...] + + | 09/23/ | Emergency | [facility] Emergency | | | | 2009 | | Department [address] | | | | | [address] | | | | | | [facility] | | | | | | [place], [place] | | | | | | [address] | | | | | | [phone] | | | +--------+ + + + [...]
--- OUTSIDE RECORDS SUMMARY | ~2020-04-05 | XMS | Encounter Summary ---
Demographics + + + | Address | [address] | | | [place] [address] | + + + | Home Phone | | + + + | Preferred Language | Unknown | + + + | Marital Status | | + + + | Episcopalian Affiliation | Unknown | + + + | Race | Unknown | + + + | Ethnic Group | Unknown | + + + Author + + + | Author | [facility] | | | and Olegarioana | + + + | Organization | [facility] | | [...] Team Providers + +------+ + | Care Radio Control Crane Operator Name | Role | Phone | + +------+ + PCP | Unavailable | + +------+ + Encounter Details +--------+ + + + + | Date | Type | Department | Care Team | Description | +--------+ + + + + | 11/22/ | Hospital | [facility] | [place] | Seizure (HCC); | | 2015 - | Encounter | [facility] [address] | Subdural hematoma, | | | | [address] | post-traumatic, | | 11/26/ | | [place], [place] | [place] [address] | initial encounter | | 2015 | | [id number] | [phone] | (HCC); Traumatic | | | | [phone] | | brain injury, | | | [...] 11/26/14931 Date of Service: 11/26/14929 Status: Signed Vegetable Vendor: Miguel Ángel John MD (Physician) [facility] Service: Hospitalist Discharge Summary Date [...] H&P 11/23/14 0252 Expand All Collapse All [facility] Service: Hospitalist Admission History & Physical Date of Admission: 11/22/2014 Requesting Physician: [facility] Reason for Admission: SZ and SDH History Obtained From: patient CHIEF COMPLAINT: SZ and MARSH. HISTORY OF PRESENT ILLNESS The patient is a 53 y.o. male with significant past medical history. 53 year old male transferred to this facility from [facility] for further evalu ation. The patient [...] if needed. Given report of potential seizure WINDSURFING INSTRUCTOR I asked staff to confirm the dose [...] this jae presently. Pt kept on there WINDSURFING INSTRUCTOR meds as possible. 11/26/14: patient still ready to d/c once the talha arrives. Nursing is looking into this f urther. The tsh is high but the T4 is in normal range. Would recc recheck and f/u with pcp in [facility] re. Recent Labs Lab 11/25/14 0529 11/23/14 0425 TSH -- 12.42* FREET4 0.9 -- Past Medical History Diagnosis Date Alcohol abuse Frequent falls Drug abuse Past Surgical History Procedure Laterality Date No past surgeries Craniotomy Right 10/11/2014 Procedure: CRANIOTOMY - FOR BLEED; Surgeon: Anthony Chong MD; Location: [facility] IN OR; Service: Neurosurgery; Laterality: Right; [...] note and vitals reviewed. DATA Results for TONY MCGUIRE ( ) as of 11/24/2014 19:27 [...] Value Units Date/Time CT head without contrast [[id number]] Resulted: 11/23/14719 Order Status: Completed Updated: 11/23/14724 Narrative: TONY LOCKETTKATHI [address] HEAD WO CONTRAST 11/23/2014 7:13 AM INDICATION: Altered mental status, hemorrhage COMPARISON: 11/22/14 TECHNIQUE: CT scan of the head without contrast. 5-mm axial noncontrast images were acquir ed from the foramen magnum through the cranial vertex. FINDINGS: On devops developer imaging, there is normal craniocervical alignment with [...] with MRI could be performed. Head Non-Con [[id number]] Resulted: 11/22/142119 Order Status: Completed Updated: 11/22/142124 Narrative: TONY LOCKETTKATHI CT HEAD WO CONTRAST 11/22/2014 9:08 PM HISTORY: 53 years. Male. Subdural hematoma. TECHNIQUE: 5-mm axial noncontrast images were acquired from the foramen magnum through the cranial fidelina amadeo. COMPARISON: CT head noncontrast 11/22/2014 performed at [facility] 10/14/2014 FINDINGS: An extensive right-sided [...] of the head post right craniectomy. Disposition: [facility] Condition: Stable Code Status: Full Code Discharge [...] orders. Aspiration precautions Fall precautions Follow up: [facility] [address] [place] [facility] [id number] In 4 weeks to eval for replacement of skull flap or sooner if needed Nina Mcconnell MD [address] [place] [address] In 1 week or next available whichever [...] Date of Service: 11/25/14 1015 Status: Signed Vegetable Vendor: Miguel Ángel John MD (Physician) [facility] Service: Hospitalist Discharge Summary Date [...] H&P 11/23/14 0252 Expand All Collapse All [facility] Service: Hospitalist Admission History & Physical Date of Admission: 11/22/2014 Requesting Physician: [facility] Reason for Admission: SZ and SDH History Obtained From: patient CHIEF COMPLAINT: SZ and MARSH. HISTORY OF PRESENT ILLNESS The patient is a 53 y.o. male with significant past medical history. 53 year old male transferred to this facility from [facility] for further evalu ation. The patient [...] if needed. Given report of potential seizure WINDSURFING INSTRUCTOR I asked staff to confirm the dose [...] this jae presently. Pt kept on there WINDSURFING INSTRUCTOR meds as possible. 11/25/14: patient still ready to d/c once the talha arrives. Nursing is looking into this f urther. Past Medical History Diagnosis Date Alcohol abuse Frequent falls Drug abuse Past Surgical History Procedure Laterality Date No past surgeries Craniotomy Right 10/11/2014 Procedure: CRANIOTOMY - FOR BLEED; Surgeon: Anthony Chong MD; Location: [facility] IN OR; Service: Neurosurgery; Laterality: Right; [...] note and vitals reviewed. DATA Results for TONY MCGUIRE ( ) as of 11/24/2014 19:27 [...] Value Units Date/Time CT head without contrast [[id number]] Resulted: 11/23/14 0720 Order Status: Completed Updated: 11/23/14 0725 Narrative: TONY MCGUIRE [address] HEAD WO CONTRAST 11/23/2014 7:13 AM INDICATION: Altered mental status, hemorrhage COMPARISON: 11/22/14 TECHNIQUE: CT scan of the head without contrast. 5-mm axial noncontrast images were acquir ed from the foramen magnum through the cranial vertex. FINDINGS: On devops developer imaging, there is normal craniocervical alignment with [...] with MRI could be performed. Head Non-Con [[id number]] Resulted: 11/22/142119 Order Status: Completed Updated: 11/22/142124 Narrative: TONY MCGUIRE CT HEAD WO CONTRAST 11/22/2014 9:08 PM HISTORY: 53 years. Male. Subdural hematoma. TECHNIQUE: 5-mm axial noncontrast images were acquired from the foramen magnum through the cranial fidelina amadeo. COMPARISON: CT head noncontrast 11/22/2014 performed at [facility] 10/14/2014 FINDINGS: An extensive right-sided [...] of the head post right craniectomy. Disposition: [facility] Condition: Stable Code Status: Full Code Discharge [...] orders. Aspiration precautions Fall precautions Follow up: [facility] [address] [place] [facility] [address] In 4 weeks to eval for replacement of skull flap or sooner if needed Nina Mcconnell MD [address] [place] [address] In 1 week or next available whichever [...] by Miguel Ángel John MD at 11/24/14 8636 Author: Miguel Ángel John MD Service: Hospitalist Author Type: Physician Filed: 11/24/14 1933 Date of Service: 11/24/14 0936 Status: Signed Vegetable Vendor: Miguel Ángel John MD (Physician) [facility] Service: Hospitalist Discharge Summary Date [...] H&P 11/23/14 0252 Expand All Collapse All [facility] Service: Hospitalist Admission History & Physical Date of Admission: 11/22/2014 Requesting Physician: [facility] Reason for Admission: SZ and SDH History Obtained From: patient CHIEF COMPLAINT: SZ and MARSH. HISTORY OF PRESENT ILLNESS The patient is a 53 y.o. male with significant past medical history. 53 year old male transferred to this facility from [facility] for further evalu ation. The patient [...] if needed. Given report of potential seizure WINDSURFING INSTRUCTOR I asked staff to confirm the dose [...] if any further seizures were seen then [facility] neurology eval would be needed. Patient will need a talha to transport and staff is work ing on getting this jae presently. Pt kept on there WINDSURFING INSTRUCTOR meds as possible. Past Medical History Diagnosis Date Alcohol abuse Frequent falls Drug abuse Past Surgical History Procedure Laterality Date No past surgeries Craniotomy Right 10/11/2014 Procedure: CRANIOTOMY - FOR BLEED; Surgeon: Anthony Chong MD; Location: [facility] IN OR; Service: Neurosurgery; Laterality: Right; Craniectomy Right 10/11/2014 Procedure: CRANIECTOMY; Surgeon: Anthony Chong MD; Location: [facility] OR; Ser vice: Neurosurgery; Laterality: [...] note and vitals reviewed. DATA Results for TONY MCGUIRE ( ) as of 11/24/2014 19:27 [...] Value Units Date/Time CT head without contrast [[id number]] Resulted: 11/23/1420 Order Status: Completed Updated: 11/23/1425 Narrative: TONY MCGUIRE [address] HEAD WO CONTRAST 11/23/2014 7:13 AM INDICATION: Altered mental status, hemorrhage COMPARISON: 11/22/14 TECHNIQUE: CT scan of the head without contrast. 5-mm axial noncontrast images were acquir ed from the foramen magnum through the cranial vertex. FINDINGS: On devops developer imaging, there is normal craniocervical alignment with [...] with MRI could be performed. Head Non-Con [[id number]] Resulted: 11/22/142119 Order Status: Completed Updated: 11/22/142124 Narrative: TONY MCGUIRE CT HEAD WO CONTRAST 11/22/2014 9:08 PM HISTORY: 53 years. Male. Subdural hematoma. TECHNIQUE: 5-mm axial noncontrast images were acquired from the foramen magnum through the cranial fidelina amadeo. COMPARISON: CT head noncontrast 11/22/2014 performed at [facility] 10/14/2014 FINDINGS: An extensive right-sided [...] of the head post right craniectomy. Disposition: [facility]CC Condition: Stable Code Status: Full Code No discharge procedures on file. Follow up[facility] [address] [facility] [address] In 4 weeks to eval for replacement of skull flap or sooner if needed Nina Mcconnell MD [address] [place] [address] In 1 week or next available whichever [...] 11/26/141714 Date of Service: 11/26/141713 Status: Signed Vegetable Vendor: Mirtha Suh RN (Registered Nurse) Discharge packet given to transport drivers, report on pt given, all questions answered. IV removed. Report called to Na GALARZA at [facility]. Patient left via transport to [facility]. onver alem Transaction, Provider Unknown - 11/26/2014 4:18 PM PDT Case Management by Josseline Mera RN at 11/26/141617 Author: Josseline Mera RN Service: (none) Author Type: Assistant Office Manager Filed: 11/26/14 4141 Date of Service: 11/26/141617 Status: Signed Vegetable Vendor: Josseline Mera RN (Assistant Office Manager) Disposition: [facility] Transportation: [place]-ambulance All orders, signed AVS, and prescriptions have been faxed All DC paperwork completed Patient and family in agreement with discharge plan Medicare important message (N/A): Josseline Mera onver alem Transaction, Provider Unknown - 11/26/2014 9:08 AM PDT Case Management by Josseline Mera RN at 11/26/14907 Author: Josseline Mera RN Service: (none) Author Type: Assistant Office Manager Filed: 11/26/14 1320 Date of Service: 11/26/14907 Status: Addendum Vegetable Vendor: Josseline Mera RN (Assistant Office Manager) Related Notes: Original Note by Josseline Mera RN (Assistant Office Manager) filed at 11/26/1454 Discharge Plans: Informed that helmet did not arrive on Wednesday as promised, thus pt has not been discharged. Call placed to [facility] and they are indicating it will be deli qamar by 10:30am today. [facility] informed of plans to DC today. Stretcher gore sport arranged for 2pm today. Paperwork completed, ready for faxing when helmet arrives. 11:00 Notified [place] transport that patient has been discharged and his helmet is her e. 1317 [facility] ([phone]) and they are in route and (possibly here by 4:30), will call us when closer so we can have pt ready for transport. onver alem Transaction, Provider Unknown - 11/23/2014 9:16 AM PST Case Management by Josseline Mera RN at 11/23/14915 Author: Josseline Mera RN Service: (none) Author Type: Assistant Office Manager Filed: 11/23/14 1212 Date of Service: 11/23/14915 Status: Addendum Vegetable Vendor: Josseline Mera RN (Assistant Office Manager) Related Notes: Original Note by Josseline Mera RN (Assistant Office Manager) filed at 11/23/14 8381 Discharge Planning: Phoned Tony's father Jay Jay ([phone]) to discuss DC plans. He indicated that Tony has been living at [facility] [...] phone, ended the call. I did call [facility] and they are willing to take Tony back when it is appropriate. Th ey [...] Date of Service: 11/23/14 0843 Status: Addendum Vegetable Vendor: Misty Hays RN (Registered Nurse) Related Notes: Original Note by Misty Hays RN (Registered Nurse) filed at 1122 0845: Attempted to call Teressa ([phone]) back to give updates and ask pts [...] she had picked up the helmet from [facility] and was not planning on co elizabeth to see the patient until Wednesday. Explained the importance of the helmet. Mother did no t seem to understand importance. onver alem Transaction, Provider Unknown - 11/23/2014 6:29 AM PST Progress Notes by Kyrie Payne RPH at 11/23/14628 Author: Kyrie Payne RPH Service: (none) Author Type: Pharmacist Filed: 11/23/14629 Date of Service: 11/23/14628 Status: Signed Vegetable Vendor: Kyrie Payne RPH (Pharmacist) Scr = 0.6- pharmacy will renal dose as needed once weight is charted. docume nted in this encounter Consult Notes Anthony Chong MD - 11/23/2014 6:31 AM PST Consult* by Anthony Chong MD at 11/23/14630 Author: Anthony Chong MD Service: Neurosurgery Author Type: Physician Filed: 11/23/14646 Date of Service: 11/23/14630 Status: Signed Vegetable Vendor: Anthony Chong MD (Physician) [facility] Service: Neurosurgery Consult Date of Admission: 11/22/2014 Requesting Physician: [facility] Reason for Admission: Transfer from [facility] with question of new SDH and seizure History Obtained From: chart review CHIEF COMPLAINT: seizure HISTORY OF PRESENT ILLNESS The patient is a 53 y.o. male s/p r cranietomy for SDH who is currently on keppra for seiz ures, with reported 5 minute tonic cloinic event yesterday at rehab. He was transferred to [facility] where a head ct was performed with question of new bleed. Transferred to [facility] for further evaluation REVIEW OF SYSTEMS Negative except for pertinent items noted in HPI. Past Medical History Diagnosis Date Alcohol abuse Frequent falls Drug abuse Past Surgical History Procedure Laterality Date No past surgeries Craniotomy Right 10/11/2014 Procedure: CRANIOTOMY - FOR BLEED; Surgeon: Anthony Chong MD; Location: [facility] IN OR; Service: Neurosurgery; Laterality: Right; [...] Notes by Crissy Mar RN at 11/22/14 9274 Author: Crissy Mar RN Service: (none) Author Type: Registered Nurse Filed: 11/22/14 7861 Date of Service: 11/22/142347 Status: Signed Vegetable Vendor: Crissy Mar RN (Registered Nurse) Pt appears to be resting more comfortably at this time. Pt in view of nurses station. Await ing room approval for surgical bed. Will continue to monitor. Crissy Mar RN 11/22/14 5958 onver alem Transaction, Provider Unknown - 11/22/2014 11:27 PM PST ED Notes by Crissy Mar RN at 11/22/14 7433 Author: Crissy Mar RN Service: (none) Author Type: Registered Nurse Filed: 11/22/142334 Date of Service: 11/22/142326 Status: Addendum Vegetable Vendor: Crissy Mar RN (Registered Nurse) Related Notes: [...] 11/22/142321 Date of Service: 11/22/142319 Status: Signed Vegetable Vendor: Crissy Mar RN (Registered Nurse) Pt requiring [...] 11/22/142258 Date of Service: 11/22/142255 Status: Signed Vegetable Vendor: Crissy Mar RN (Registered Nurse) Pt appeared [...] 11/22/142232 Date of Service: 11/22/142232 Status: Signed Vegetable Vendor: Harjit Zeng RN (Registered Nurse) Lab called for blood collection. Harjit Zeng RN 11/22/142232 onver alem Transaction, Provider Unknown - 11/22/2014 9:30 PM PST ED Notes by Crissy Mar RN at 11/22/142129 Author: Crissy Mar RN Service: (none) Author Type: Registered Nurse Filed: 11/22/142129 Date of Service: 11/22/142129 Status: Signed Vegetable Vendor: Crissy Mar RN (Registered Nurse) Pt resting [...] Physician A ssistant - Certified Filed: 11/22/14 9802 Date of Service: 11/22/142049 Status: Attested Addendum Vegetable Vendor: Steffi Machado PA-C (Physician Shuttle Car Operator - Certified) Related Notes: Original Note by Steffi Machado PA-C (Physician Shuttle Car Operator - Certified ) filed at 11/22/142240 Cosigner: [...] been informed of need for admission. Procedures [facility] Department of Emergency Medicine HPI History of Present Illness Patient Identification Tony Mcguire is a 53 y.o. male. Patient information was obtained from patient, past medical records and transferring facili ty History/Exam limitations: none. Patient presented to the Emergency Department by: Chief Complaint Chief Complaint Patient presents with Seizures 53 year old male transferred to this facility from [facility] for further evalu ation. The patient [...] FOR BLEED; Surgeon: Anthony Chong MD; Location: [facility] IN OR; Service: Neurosurgery; Laterality: Right; [...] by mouth daily. 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 He advised that on arrival he [...] Value Ref Range Date/Time Comprehensive metabolic panel [[id number]] (Abnormal) Collected: 11/22/142043 Order Status: Completed Updated: [...] EGFR >60 >60 mL/min/1.73m2 CBC with differential [[id number]] (Abnormal) Collected: 11/22/142043 Order Status: Completed Updated: [...] 0.00 - 0.10 K/uL POC clinitek 10 [[id number]] Collected: 11/22/148 Order Status: Completed Updated: 11/22/142249 [...] of the head post right craniectomy. Narrative: TONY MCGUIRE CT HEAD WO CONTRAST 11/22/2014 9:08 PM HISTORY: 53 years. Male. Subdural hematoma. TECHNIQUE: 5-mm axial noncontrast images were acquired from the foramen magnum through the cranial fidelina amadeo. COMPARISON: CT head noncontrast 11/22/2014 performed at [facility] 10/14/2014 FINDINGS: An extensive right-sided [...] 11/22/142036 Date of Service: 11/22/142036 Status: Signed Vegetable Vendor: Derian Mcfarlane DO (Physician) Bed: 04 Expected date: Expected time: Means of arrival: Comments: onversion Trans action, Provider Unknown - 11/22/2014 7:04 PM PST ED Notes by Harjit Zeng RN at 11/22/14 1904 Author: Harjit Zeng RN Service: (none) Author Type: Registered Nurse Filed: 11/22/141910 Date of Service: 11/22/141903 Status: Signed Vegetable Vendor: Harjit Zeng RN (Registered Nurse) Per Nae GALARZA at [facility] ED: Presented today after SNF reported possible seizure SNF report AMS recently Had craniectomy 09/2014 r/t bleed CT head: possible bleed, poor read due to patient movement. H/H 18g IV right AC Given: Cowdrey 5/325 Zofran 8mg IVP total Reglan 10mg [...] 11/24/14920 Date of Service: 11/24/14917 Status: Signed Vegetable Vendor: Shona Moreno RN (Registered Nurse) Safety measures [...] 11/23/141953 Date of Service: 11/23/141951 Status: Signed Vegetable Vendor: Miguel Ángel John MD (Physician) Admitted this am. Pt seen notes reviewed. Seems is on the same anti seizure meds as listed in WINDSURFING INSTRUCTOR. I asked nursing and case mgt to [...] 11/23/14744 Date of Service: 11/23/14744 Status: Signed Vegetable Vendor: Misty Hays RN (Registered Nurse) Daily care [...] EXTERNAL | | | | performed at [facility], [address] | K/uL | LAB | | | | [address], | | | | | | [place] [address] | | | | + + + + + + | Non- | 3.88 (L)Comment: Testing | 4.20 - 5.70 | EXTERNAL | | | Red Blood | performed at [facility], [address] | M/uL | LAB | | | Cells | [address], | | | | | Counted | [place] [address] | | | | + + + + + + | Hemoglobin | 12.3 (L)Comment: Testing | 13.2 - 17.0 | EXTERNAL | | | | performed at [facility], [address] | g/dL | LAB | | | | [address], | | | | | | [place] [address] | | | | + + + + + + | Hematocrit, | 36.2 (L)Comment: Testing | 39.0 - 50.0 % | EXTERNAL | | | POC | performed at [facility], [address] | | LAB | | | | [address], | | | | | | [place] [address] | | | | + + + + + + | MCV | 93.4Comment: Testing | 80.0 - 100.0 fl | EXTERNAL | | | | performed at [facility], [address] | | LAB | | | | [address], | | | | | | [place] [address] | | | | + + + + + + | MCH | 31.7Comment: Testing | 27.0 - 34.0 pg | EXTERNAL | | | | performed at [facility], [address] | | LAB | | | | [address], | | | | | | [place] [address] | | | | + + + + + + | MCHC | 34.0Comment: Testing | 32.0 - 35.5 | EXTERNAL | | | | performed at [facility], [address] | g/dL | LAB | | | | [address], | | | | | | [place] [address] | | | | + + + + + + | RDW-CV | 46.8Comment: Testing | 37 - 53 fl | EXTERNAL | | | | performed at [facility], [address] | | LAB | | | | [address], | | | | | | [place] [address] | | | | + + + [...] | | | | | [place] [address] | | | | + + + + + + | Differentia | AUTOMATEDComment: | | EXTERNAL | | | l Type | Testing performed at | | LAB | | | | [facility], [address] | | | | | | [place] | | | | | | [address] | | | | + + + + + + | % Segmented | 64.56Comment: Testing | % | EXTERNAL | | | | performed at [facility], [address] | | LAB | | | Neutrophils | [address], | | | | | | [place] [address] | | | | + + + + + + | % | 18.74Comment: Testing | % | EXTERNAL | | | Lymphocytes | performed at [facility], [address] | | LAB | | | | [address], | | | | | | [place] [address] | | | | + + + + + + | % Monocytes | 11.05Comment: Testing | % | EXTERNAL | | | | performed at [facility], [address] | | LAB | | | | [address], | | | | | | [place] [address] | | | | + + + + + + | % | 4.94Comment: Testing | % | EXTERNAL | | | Eosinophils | performed at [facility], [address] | | LAB | | | | [address], | | | | | | [place] [address] | | | | + + + + + + | % Basophils | 0.71Comment: Testing | % | EXTERNAL | | | | performed at [facility], [address] | | LAB | | | | [address], | | | | | | [place] [address] | | | | + + + + + + | Absolute | 3.91Comment: Testing | 1.90 - 7.40 | EXTERNAL | | | Segmented | performed at [facility], [address] | K/uL | LAB | | | Neutrophils | [address], | | | | | | [place] [address] | | | | + + + + + + | Absolute | 1.14Comment: Testing | 1.00 - 3.90 | EXTERNAL | | | Lymphocytes | performed at [facility], [address] | K/uL | LAB | | | [address], | | | | | | [place] [address] | | | | + + + + + + | Absolute | 0.67Comment: Testing | 0.00 - 0.80 | EXTERNAL | | | Monocytes | performed at [facility], [address] | K/uL | LAB | | | | [address], | | | | | | [place] [address] | | | | + + + + + + | Absolute | 0.30Comment: Testing | 0.00 - 0.50 | EXTERNAL | | | Eosinophils | performed at [facility], [address] | K/uL | LAB | | | | [address], | | | | | | [place] [address] | | | | + + + + + + | Absolute | 0.04Comment: Testing | 0.00 - 0.10 | EXTERNAL | | | Basophils | performed at [facility], [address] | K/uL | LAB | | | | [address], | | | | | | [place] [address] | | | | + + + [...] | | | | | [place] [address] | | | | + + + [...] EXTERNAL | | | | performed at [facility], [address] | | LAB | | | | [address], | | | | | | [place] [address] | | | | + + + [...] | | | | | [place] [address] | | | | + + + + + + | K | 3.8Comment: Testing | 3.5 - 4.9 | EXTERNAL | | | | performed at [facility], [address] | mmol/L | LAB | | | | [address], | | | | | | [place] [address] | | | | + + + + + + | Cl | 104Comment: Testing | 99 - 109 mmol/L | EXTERNAL | | | | performed at [facility], [address] | | LAB | | | | [address], | | | | | | [place] [address] | | | | + + + + + + | CO2 | 27Comment: Testing | 23 - 32 mmol/L | EXTERNAL | | | | performed at [facility], [address] | | LAB | | | | [address], | | | | | | [place] [address] | | | | + + + + + + | Anion Gap | 9Comment: Testing | 5 - 20 mmol/L | EXTERNAL | | | | performed at [facility], [address] | | LAB | | | | [address], | | | | | | [place] [address] | | | | + + + + + + | Glucose, | 99Comment: Testing | 65 - 99 mg/dL | EXTERNAL | | | Fasting | performed at [facility], [address] | | LAB | | | | [address], | | | | | | [place] [address] | | | | + + + + + + | BUN | 8Comment: Testing | 8 - 25 mg/dL | EXTERNAL | | | | performed at [facility], [address] | | LAB | | | | [address], | | | | | | [place] [address] | | | | + + + + + + | Creatinine | 0.62 (L)Comment: Testing | 0.70 - 1.30 | EXTERNAL | | | | performed at [facility], [address] | mg/dL | LAB | | | | [address], | | | | | | [place] [address] | | | | + + + [...] | | | | | [place] [address] | | | | + + + + + + | Protein, | 6.7Comment: Testing | 6.3 - 8.2 g/dL | EXTERNAL | | | Total | performed at [facility], [address] | | LAB | | | | [address], | | | | | | [place] [address] | | | | + + + + + + | Albumin | 3.2 (L)Comment: Testing | 3.6 - 5.0 g/dL | EXTERNAL | | | | performed at [facility], [address] | | LAB | | | | [address], | | | | | | [place] [address] | | | | + + + + + + | Globulin | 3.5Comment: Testing | 1.3 - 4.9 g/dL | EXTERNAL | | | | performed at [facility], [address] | | LAB | | | | [address], | | | | | | [place] [address] | | | | + + + + + + | A/G Ratio | 0.9 (L)Comment: Testing | 1.0 - 2.4 | EXTERNAL | | | | performed at [facility], [address] | | LAB | | | | [address], | | | | | | [place] [address] | | | | + + + + + + | Bilirubin | 0.4Comment: Testing | 0.1 - 1.5 mg/dL | EXTERNAL | | | Total | performed at [facility], [address] | | LAB | | | | [address], | | | | | | [place] [address] | | | | + + + + + + | ALP, | 105Comment: Testing | 35 - 115 U/L | EXTERNAL | | | External | performed at [facility], [address] | | LAB | | | | [address], | | | | | | [place] [address] | | | | + + + + + + | AST | 26Comment: Testing | 10 - 45 U/L | EXTERNAL | | | | performed at [facility], [address] | | LAB | | | | [address], | | | | | | [place] [address] | | | | + + + + + + | ALT | 19Comment: Testing | 10 - 65 U/L | EXTERNAL | | | | performed at [facility], [address] | | LAB | | | | [address], | | | | | | [place] [address] | | | | + + + [...] [address], | | | | | | [place] [address] | | | | + + + [...] EXTERNAL | | | | performed at [facility], [address] | K/uL | LAB | | | | [address], | | | | | | [place] [address] | | | | + + + + + + | Non- | 4.10 (L)Comment: Testing | 4.20 - 5.70 | EXTERNAL | | | Red Blood | performed at [facility], [address] | M/uL | LAB | | | Cells | [address], | | | | | Counted | [place] [address] | | | | + + + + + + | Hemoglobin | 12.9 (L)Comment: Testing | 13.2 - 17.0 | EXTERNAL | | | | performed at [facility], [address] | g/dL | LAB | | | | [address], | | | | | | [place] [address] | | | | + + + + + + | Hematocrit, | 38.6 (L)Comment: Testing | 39.0 - 50.0 % | EXTERNAL | | | POC | performed at [facility], [address] | | LAB | | | | [address], | | | | | | [place] [address] | | | | + + + + + + | MCV | 94.2Comment: Testing | 80.0 - 100.0 fl | EXTERNAL | | | | performed at [facility], [address] | | LAB | | | | [address], | | | | | | [place] [address] | | | | + + + + + + | MCH | 31.4Comment: Testing | 27.0 - 34.0 pg | EXTERNAL | | | | performed at [facility], [address] | | LAB | | | | [address], | | | | | | [place] [address] | | | | + + + + + + | MCHC | 33.3Comment: Testing | 32.0 - 35.5 | EXTERNAL | | | | performed at [facility], [address] | g/dL | LAB | | | | [address], | | | | | | [place] [address] | | | | + + + [...] | | | | | [place] [address] | | | | + + + + + + | MPV | 8.9Comment: Testing | fl | EXTERNAL | | | | performed at [facility], [address] | | LAB | | | | [address], | | | | | | [place] [address] | | | | + + + + + + | Differentia | AUTOMATEDComment: | | EXTERNAL | | | l Type | Testing performed at | | LAB | | | | [facility], [address] | | | | | | [place] | | | | | | [address] | | | | + + + + + + | % Segmented | 60.71Comment: Testing | % | EXTERNAL | | | | performed at [facility], [address] | | LAB | | | Neutrophils | [address], | | | | | | [place] [address] | | | | + + + + + + | % | 21.02Comment: Testing | % | EXTERNAL | | | Lymphocytes | performed at [facility], [address] | | LAB | | | | [address], | | | | | | [place] [address] | | | | + + + [...] | | | | | [place] [address] | | | | + + + + + + | % Basophils | 0.58Comment: Testing | % | EXTERNAL | | | | performed at [facility], [address] | | LAB | | | | [address], | | | | | | [place] [address] | | | | + + + + + + | Absolute | 3.70Comment: Testing | 1.90 - 7.40 | EXTERNAL | | | Segmented | performed at [facility], [address] | K/uL | LAB | | | Neutrophils | [address], | | | | | | [place] [address] | | | | + + + + + + | Absolute | 1.28Comment: Testing | 1.00 - 3.90 | EXTERNAL | | | Lymphocytes | performed at [facility], [address] | K/uL | LAB | | | | [address], | | | | | | [place] [address] | | | | + + + + + + | Absolute | 0.77Comment: Testing | 0.00 - 0.80 | EXTERNAL | | | Monocytes | performed at [facility], [address] | K/uL | LAB | | | | [address], | | | | | | [place] [address] | | | | + + + + + + | Absolute | 0.31Comment: Testing | 0.00 - 0.50 | EXTERNAL | | | Eosinophils | performed at [facility], [address] | K/uL | LAB | | | | [address], | | | | | | [place] [address] | | | | + + + + + + | Absolute | 0.04Comment: Testing | 0.00 - 0.10 | EXTERNAL | | | Basophils | performed at [facility], [address] | K/uL | LAB | | | | [address], | | | | | | [place] [address] | | | | + + + [...] | | | (REF) | performed at [facility], [address] | | LAB | | | | [address], | | | | | | [place] [address] | | | | + + + [...] EXTERNAL | | | | performed at [facility], [address] | | LAB | | | | [address], | | | | | | [place] [address] | | | | + + + [...] EXTERNAL | | | | performed at [facility], [address] | | LAB | | | | [address], | | | | | | [place] [address] | | | | + + + [...] | | | | | [place] [address] | | | | + + + + + + | K | 3.8Comment: Testing | 3.5 - 4.9 | EXTERNAL | | | | performed at [facility], [address] | mmol/L | LAB | | | | [address], | | | | | | [place] [address] | | | | + + + + + + | Cl | 104Comment: Testing | 99 - 109 mmol/L | EXTERNAL | | | | performed at [facility], [address] | | LAB | | | | [address], | | | | | | [place] [address] | | | | + + + + + + | CO2 | 28Comment: Testing | 23 - 32 mmol/L | EXTERNAL | | | | performed at [facility], [address] | | LAB | | | | [address], | | | | | | [place] [address] | | | | + + + + + + | Anion Gap | 8Comment: Testing | 5 - 20 mmol/L | EXTERNAL | | | | performed at [facility], [address] | | LAB | | | | [address], | | | | | | [place] [address] | | | | + + + + + + | Glucose, | 107 (H)Comment: Testing | 65 - 99 mg/dL | EXTERNAL | | | Fasting | performed at [facility], [address] | | LAB | | | | [address], | | | | | | [place] [address] | | | | + + + + + + | BUN | 6 (L)Comment: Testing | 8 - 25 mg/dL | EXTERNAL | | | | performed at [facility], [address] | | LAB | | | | [address], | | | | | | [place] [address] | | | | + + + + + + | Creatinine | 0.59 (L)Comment: Testing | 0.70 - 1.30 | EXTERNAL | | | | performed at [facility], [address] | mg/dL | LAB | | | | [address], | | | | | | [place] [address] | | | | + + + + + + | BUN/Creatin | 10Comment: Testing | | EXTERNAL | | | ine Ratio | performed at [facility], [address] | | LAB | | | | [address], | | | | | | [place] [address] | | | | + + + + + + | Calcium | 9.2Comment: Testing | 8.5 - 10.5 | EXTERNAL | | | | performed at [facility], [address] | mg/dL | LAB | | | | [address], | | | | | | [place] [address] | | | | + + + + + + | Protein, | 7.0Comment: Testing | 6.3 - 8.2 g/dL | EXTERNAL | | | Total | performed at [facility], [address] | | LAB | | | | [address], | | | | | | [place] [address] | | | | + + + + + + | Albumin | 3.4 (L)Comment: Testing | 3.6 - 5.0 g/dL | EXTERNAL | | | | performed at [facility], [address] | | LAB | | | | [address], | | | | | | [place] [address] | | | | + + + + + + | Globulin | 3.6Comment: Testing | 1.3 - 4.9 g/dL | EXTERNAL | | | | performed at [facility], [address] | | LAB | | | | [address], | | | | | | [place] [address] | | | | + + + + + + | A/G Ratio | 0.9 (L)Comment: Testing | 1.0 - 2.4 | EXTERNAL | | | | performed at [facility], [address] | | LAB | | | | [address], | | | | | | [place] [address] | | | | + + + + + + | Bilirubin | 0.5Comment: Testing | 0.1 - 1.5 mg/dL | EXTERNAL | | | Total | performed at [facility], [address] | | LAB | | | | [address], | | | | | | [place] [address] | | | | + + + + + + | ALP, | 115Comment: Testing | 35 - 115 U/L | EXTERNAL | | | External | performed at [facility], [address] | | LAB | | | | [address], | | | | | | [place] [address] | | | | + + + + + + | AST | 27Comment: Testing | 10 - 45 U/L | EXTERNAL | | | | performed at [facility], [address] | | LAB | | | | [address], | | | | | | [place] [address] | | | | + + + + + + | ALT | 21Comment: Testing | 10 - 65 U/L | EXTERNAL | | | | performed at [facility], [address] | | LAB | | | | [address] [facility], | | | | | | [place] [address] | | | | + + + [...] | | | | | | at [facility], [address] | | | | | | [facility], | | | | | | [place] [address] | | | | + + + [...] EXTERNAL | | | | performed at [facility], [address] | K/uL | LAB | | | | [address], | | | | | | [place] [address] | | | | + + + + + + | Non- | 4.01 (L)Comment: Testing | 4.20 - 5.70 | EXTERNAL | | | Red Blood | performed at [facility], [address] | M/uL | LAB | | | Cells | [address], | | | | | Counted | [place] [address] | | | | + + + + + + | Hemoglobin | 12.3 (L)Comment: Testing | 13.2 - 17.0 | EXTERNAL | | | | performed at [facility], [address] | g/dL | LAB | | | | [address], | | | | | | [place] [address] | | | | + + + + + + | Hematocrit, | 37.8 (L)Comment: Testing | 39.0 - 50.0 % | EXTERNAL | | | POC | performed at [facility], [address] | | LAB | | | | [address], | | | | | | [place] [address] | | | | + + + + + + | MCV | 94.3Comment: Testing | 80.0 - 100.0 fl | EXTERNAL | | | | performed at [facility], [address] | | LAB | | | | [address], | | | | | | [place] [address] | | | | + + + + + + | MCH | 30.6Comment: Testing | 27.0 - 34.0 pg | EXTERNAL | | | | performed at [facility], [address] | | LAB | | | | [address], | | | | | | [place] [address] | | | | + + + + + + | MCHC | 32.4Comment: Testing | 32.0 - 35.5 | EXTERNAL | | | | performed at [facility], [address] | g/dL | LAB | | | | [address], | | | | | | [place] [address] | | | | + + + + + + | RDW-CV | 47.7Comment: Testing | 37 - 53 fl | EXTERNAL | | | | performed at [facility], [address] | | LAB | | | | [address], | | | | | | [place] [address] | | | | + + + + + + | Platelet | 153Comment: Testing | 150 - 400 K/uL | EXTERNAL | | | Count | performed at [facility], [address] | | LAB | | | Plasma | [address], | | | | | | [place] [address] | | | | + + + + + + | MPV | 9.0Comment: Testing | fl | EXTERNAL | | | | performed at [facility], [address] | | LAB | | | | [address], | | | | | | [place] [address] | | | | + + + + + + | Differentia | AUTOMATEDComment: | | EXTERNAL | | | l Type | Testing performed at | | LAB | | | | [facility], [address] | | | | | | [place] | | | | | | [address] | | | | + + + + + + | % Segmented | 70.29Comment: Testing | % | EXTERNAL | | | | performed at [facility], [address] | | LAB | | | Neutrophils | [address], | | | | | | [place] [address] | | | | + + + + + + | % | 14.74Comment: Testing | % | EXTERNAL | | | Lymphocytes | performed at [facility], [address] | | LAB | | | | [address], | | | | | | [place] [address] | | | | + + + + + + | % Monocytes | 10.97Comment: Testing | % | EXTERNAL | | | | performed at [facility], [address] | | LAB | | | | [address], | | | | | | [place] [address] | | | | + + + + + + | % | 3.52Comment: Testing | % | EXTERNAL | | | Eosinophils | performed at [facility], [address] | | LAB | | | | [address], | | | | | | [place] [address] | | | | + + + + + + | % Basophils | 0.48Comment: Testing | % | EXTERNAL | | | | performed at [facility], [address] | | LAB | | | | [address], | | | | | | [place] [address] | | | | + + + + + + | Absolute | 5.09Comment: Testing | 1.90 - 7.40 | EXTERNAL | | | Segmented | performed at [facility], [address] | K/uL | LAB | | | Neutrophils | [address], | | | | | | [place] [address] | | | | + + + + + + | Absolute | 1.07Comment: Testing | 1.00 - 3.90 | EXTERNAL | | | Lymphocytes | performed at [facility], [address] | K/uL | LAB | | | | [address], | | | | | | [place] [address] | | | | + + + + + + | Absolute | 0.79Comment: Testing | 0.00 - 0.80 | EXTERNAL | | | Monocytes | performed at [facility], [address] | K/uL | LAB | | | | [address], | | | | | | [place] [address] | | | | + + + + + + | Absolute | 0.26Comment: Testing | 0.00 - 0.50 | EXTERNAL | | | Eosinophils | performed at [facility], [address] | K/uL | LAB | | | | [address], | | | | | | [place] [address] | | | | + + + + + + | Absolute | 0.03Comment: Testing | 0.00 - 0.10 | EXTERNAL | | | Basophils | performed at [facility], [address] | K/uL | LAB | | | | [address], | | | | | | [place] [address] | | | | + + + [...] EXTERNAL | | | | performed at [facility], [address] | | LAB | | | | [address], | | | | | | [place] [address] | | | | + + [...] EXTERNAL | | | | performed at [facility], [address] | | LAB | | | | [facility], | | | | | | [place] [address] | | | | + + + [...] | | | | | [place] [address] | | | | + + + + + + | K | 4.0Comment: Testing | 3.5 - 4.9 | EXTERNAL | | | | performed at [facility], [address] | mmol/L | LAB | | | | [address], | | | | | | [place] [address] | | | | + + + + + + | Cl | 102Comment: Testing | 99 - 109 mmol/L | EXTERNAL | | | | performed at [facility], [address] | | LAB | | | | [address], | | | | | | [place] [address] | | | | + + + + + + | CO2 | 26Comment: Testing | 23 - 32 mmol/L | EXTERNAL | | | | performed at [facility], [address] | | LAB | | | | [address], | | | | | | [place] [address] | | | | + + + + + + | Anion Gap | 11Comment: Testing | 5 - 20 mmol/L | EXTERNAL | | | | performed at [facility], [address] | | LAB | | | | [address], | | | | | | [place] [address] | | | | + + + + + + | Glucose, | 103 (H)Comment: Testing | 65 - 99 mg/dL | EXTERNAL | | | Fasting | performed at [facility], [address] | | LAB | | | | [address], | | | | | | [place] [address] | | | | + + + + + + | BUN | 6 (L)Comment: Testing | 8 - 25 mg/dL | EXTERNAL | | | | performed at [facility], [address] | | LAB | | | | [address], | | | | | | [place] [address] | | | | + + + + + + | Creatinine | 0.63 (L)Comment: Testing | 0.70 - 1.30 | EXTERNAL | | | | performed at [facility], [address] | mg/dL | LAB | | | | [address], | | | | | | [place] [address] | | | | + + + + + + | BUN/Creatin | 10Comment: Testing | | EXTERNAL | | | ine Ratio | performed at [facility], [address] | | LAB | | | | [address], | | | | | | [place] [address] | | | | + + + + + + | Calcium | 9.3Comment: Testing | 8.5 - 10.5 | EXTERNAL | | | | performed at [facility], [address] | mg/dL | LAB | | | | [address], | | | | | | [place] [address] | | | | + + + + + + | Protein, | 6.9Comment: Testing | 6.3 - 8.2 g/dL | EXTERNAL | | | Total | performed at [facility], [address] | | LAB | | | | [address], | | | | | | [place] [address] | | | | + + + + + + | Albumin | 3.5 (L)Comment: Testing | 3.6 - 5.0 g/dL | EXTERNAL | | | | performed at [facility], [address] | | LAB | | | | [address], | | | | | | [place] [address] | | | | + + + + + + | Globulin | 3.4Comment: Testing | 1.3 - 4.9 g/dL | EXTERNAL | | | | performed at [facility], [address] | | LAB | | | | [address], | | | | | | [place] [address] | | | | + + + + + + | A/G Ratio | 1.0Comment: Testing | 1.0 - 2.4 | EXTERNAL | | | | performed at [facility], [address] | | LAB | | | | [address], | | | | | | [place] [address] | | | | + + + + + + | Bilirubin | 0.5Comment: Testing | 0.1 - 1.5 mg/dL | EXTERNAL | | | Total | performed at [facility], [address] | | LAB | | | | [address], | | | | | | [place] [address] | | | | + + + + + + | ALP, | 103Comment: Testing | 35 - 115 U/L | EXTERNAL | | | External | performed at [facility], [address] | | LAB | | | | [address], | | | | | | [place] [address] | | | | + + + + + + | AST | 27Comment: Testing | 10 - 45 U/L | EXTERNAL | | | | performed at [facility], [address] | | LAB | | | | [address], | | | | | | [place] [address] | | | | + + + + + + | ALT | 23Comment: Testing | 10 - 65 U/L | EXTERNAL | | | | performed at [facility], [address] | | LAB | | | | [address], | | | | | | [place] [address] | | | | + + + [...] | | | | | | at [facility], [address] | | | | | | [address], | | | | | | [place] [address] | | | | + + + [...] | + + + | TONY MCGUIRE 1960 53 [address] HEAD WO CONTRAST | | | 11/23/2014 7:13 AM INDICATION: Altered mental status, hemorrhage | | | COMPARISON: 11/22/14 TECHNIQUE: CT scan of the head without | | | contrast. 5-mm axial noncontrast images were acquired from the | | | foramen magnum through the cranial vertex. FINDINGS: On dev[employer] developer | | | imaging, there is normal [...] Conversion - 05/05/2019 12:20 AM PDT TONY MCGUIRE1960 53 years | | MaleCT HEAD WO CONTRAST11/23/2014 7:13 AM INDICATION: Altered mental status, hemorrhage | | COMPARISON: 11/22/14 TECHNIQUE: CT scan of the head without contrast. 5-mm axial | | noncontrast images were acquired from the foramen magnum through the cranial vertex. | | FINDINGS: On devops developer imaging, there is normal craniocervical alignment with [...] EXTERNAL | | | | performed at [facility], [address] | K/uL | LAB | | | | [address], | | | | | | [place] [address] | | | | + + + + + + | Non- | 4.01 (L)Comment: Testing | 4.20 - 5.70 | EXTERNAL | | | Red Blood | performed at [facility], [address] | M/uL | LAB | | | Cells | [address] [facility], | | | | | Counted | [place] [address] | | | | + + + + + + | Hemoglobin | 12.5 (L)Comment: Testing | 13.2 - 17.0 | EXTERNAL | | | | performed at [facility], [address] | g/dL | LAB | | | | [address], | | | | | | [place] [address] | | | | + + + + + + | Hematocrit, | 38.0 (L)Comment: Testing | 39.0 - 50.0 % | EXTERNAL | | | POC | performed at [facility], [address] | | LAB | | | | [address], | | | | | | [place] [address] | | | | + + + + + + | MCV | 94.9Comment: Testing | 80.0 - 100.0 fl | EXTERNAL | | | | performed at [facility], [address] | | LAB | | | | [address], | | | | | | [place] [address] | | | | + + + + + + | MCH | 31.2Comment: Testing | 27.0 - 34.0 pg | EXTERNAL | | | | performed at [facility], [address] | | LAB | | | | [address], | | | | | | [place] [address] | | | | + + + + + + | MCHC | 32.9Comment: Testing | 32.0 - 35.5 | EXTERNAL | | | | performed at [facility], [address] | g/dL | LAB | | | | [address], | | | | | | [place] [address] | | | | + + + + + + | RDW-CV | 47.3Comment: Testing | 37 - 53 fl | EXTERNAL | | | | performed at [facility], [address] | | LAB | | | | [address], | | | | | | [place] [address] | | | | + + + + + + | Platelet | 171Comment: Testing | 150 - 400 K/uL | EXTERNAL | | | Count | performed at [facility], [address] | | LAB | | | Plasma | [address], | | | | | | [place] [address] | | | | + + + + + + | MPV | 8.8Comment: Testing | fl | EXTERNAL | | | | performed at [facility], [address] | | LAB | | | | [address], | | | | | | [place] [address] | | | | + + + + + + | Differentia | AUTOMATEDComment: | | EXTERNAL | | | l Type | Testing performed at | | LAB | | | | [facility], [address] | | | | | | [place] | | | | | | [address] | | | | + + + + + + | % Segmented | 67.69Comment: Testing | % | EXTERNAL | | | | performed at [facility], [address] | | LAB | | | Neutrophils | [address], | | | | | | [place] [address] | | | | + + + + + + | % | 20.09Comment: Testing | % | EXTERNAL | | | Lymphocytes | performed at [facility], [address] | | LAB | | | | [address], | | | | | | [place] [address] | | | | + + + + + + | % Monocytes | 9.27Comment: Testing | % | EXTERNAL | | | | performed at [facility], [address] | | LAB | | | | [address], | | | | | | [place] [address] | | | | + + + + + + | % | 2.66Comment: Testing | % | EXTERNAL | | | Eosinophils | performed at [facility], [address] | | LAB | | | | [address], | | | | | | [place] [address] | | | | + + + + + + | % Basophils | 0.29Comment: Testing | % | EXTERNAL | | | | performed at [facility], [address] | | LAB | | | | [address], | | | | | | [place] [address] | | | | + + + + + + | Absolute | 5.79Comment: Testing | 1.90 - 7.40 | EXTERNAL | | | Segmented | performed at [facility], [address] | K[address] | LAB | | | Neutrophils | [address], | | | | | | [place] [address] | | | | + + + + + + | Absolute | 1.72Comment: Testing | 1.00 - 3.90 | EXTERNAL | | | Lymphocytes | performed at [facility], [address] | [address] | LAB | | | | [address], | | | | | | [place] [address] | | | | + + + + + + | Absolute | 0.79Comment: Testing | 0.00 - 0.80 | EXTERNAL | | | Monocytes | performed at [facility], [address] | [address] | LAB | | | | [address], | | | | | | [place] [address] | | | | + + + + + + | Absolute | 0.23Comment: Testing | 0.00 - 0.50 | EXTERNAL | | | Eosinophils | performed at [facility], [address] | [address] | LAB | | | | [address], | | | | | | [place] [address] | | | | + + + + + + | Absolute | 0.03Comment: Testing | 0.00 - 0.10 | EXTERNAL | | | Basophils | performed at [facility], [address] | K/[address] | LAB | | | | [address], | | | | | | [place] [address] | | | | + + + [...] | | | | [facility], [address] [facility] | | | | | | [address], [place] | | | | | | [address] | | | | + + + [...] EXTERNAL | | | | performed at [facility], [address] | | LAB | | | | [address], | | | | | | [place] [address] | | | | + + + [...] EXTERNAL | | | | performed at [facility], [address] | | LAB | | | | [address], | | | | | | [place] [address] | | | | + + + [...] | | | | | [place] [address] | | | | + + + + + + | K | 4.2Comment: Testing | 3.5 - 4.9 | EXTERNAL | | | | performed at [facility], [address] | mmol/L | LAB | | | | [address], | | | | | | [place] [address] | | | | + + + + + + | Cl | 102Comment: Testing | 99 - 109 mmol/L | EXTERNAL | | | | performed at [facility], [address] | | LAB | | | | [address], | | | | | | [place] [address] | | | | + + + + + + | CO2 | 25Comment: Testing | 23 - 32 mmol/L | EXTERNAL | | | | performed at [facility], [address] | | LAB | | | | [address], | | | | | | [place] [address] | | | | + + + + + + | Anion Gap | 13Comment: Testing | 5 - 20 mmol/L | EXTERNAL | | | | performed at [facility], [address] | | LAB | | | | [address], | | | | | | [place] [address] | | | | + + + [...] | | | | | [place] [address] | | | | + + + + + + | Creatinine | 0.60 (L)Comment: Testing | 0.70 - 1.30 | EXTERNAL | | | | performed at [facility], [address] | mg/dL | LAB | | | | [address], | | | | | | [place] [address] | | | | + + + + + + | BUN/Creatin | 7Comment: Testing | | EXTERNAL | | | ine Ratio | performed at [facility], [address] | | LAB | | | [address], | | | | | | [place] [address] | | | | + + + + + + | Calcium | 9.4Comment: Testing | 8.5 - 10.5 | EXTERNAL | | | | performed at [facility], [address] | mg/dL | LAB | | | | [address], | | | | | | [place] [address] | | | | + + + + + + | Protein, | 7.3Comment: Testing | 6.3 - 8.2 g/dL | EXTERNAL | | | Total | performed at [facility], [address] | | LAB | | | | [address], | | | | | | [place] [address] | | | | + + + [...] | | | | | [place] [address] | | | | + + + + + + | A/G Ratio | 1.0Comment: Testing | 1.0 - 2.4 | EXTERNAL | | | | performed at [facility], [address] | | LAB | | | | [address], | | | | | | [place] [address] | | | | + + + + + + | Bilirubin | 0.5Comment: Testing | 0.1 - 1.5 mg/dL | EXTERNAL | | | Total | performed at [facility], [address] | | LAB | | | | [address], | | | | | | [place] [address] | | | | + + + + + + | ALP, | 104Comment: Testing | 35 - 115 U/L | EXTERNAL | | | External | performed at [facility], [address] | | LAB | | | | [address], | | | | | | [place] [address] | | | | + + + + + + | AST | 36Comment: Testing | 10 - 45 U/L | EXTERNAL | | | | performed at [facility], [address] | | LAB | | | | [address], | | | | | | [place] [address] | | | | + + + + + + | ALT | 26Comment: Testing | 10 - 65 U/L | EXTERNAL | | | | performed at [facility], [address] | | LAB | | | | [address], | | | | | | [place] [address] | | | | + + + [...] | | | | | | at [facility], [address] | | | | | | [address], | | | | | | [place] [address] | | | | + + + [...] noncontrast 11/22/2014 | | | performed at [facility] 10/14/2014 FINDINGS: An | | [...] Conversion - 05/05/2019 12:20 AM PDT TONY LAGOS HEAD WO | | CONTRAST11/22/2014 9:08 PM HISTORY:53 years. Male. Subdural hematoma. TECHNIQUE:5-mm | | axial noncontrast images were acquired from the foramen magnum through the cranial | | vertex. COMPARISON:CT head noncontrast 11/22/2014 performed at [facility] | | 10/14/2014 FINDINGS:An extensive [...] at [facility];[address] | [address] | LAB | | | | [address];[place] | | | | | | [address] | | | | + + + + + + | Non- | 3.99 (L)Comment: Testing | 4.20 - 5.70 | EXTERNAL | | | Red Blood | performed at [facility];[address] | M/uL | LAB | | | Cells | [address];[place] | | | | | Counted | [address] | | | | + + + [...] [place] | | | | | | [address] | | | | + + + + + + | MCV | 95.2Comment: Testing | 80.0 - 100.0 fl | EXTERNAL | | | | performed at [facility];[address] | | LAB | | | | [address];[place] | | | | | | [address] | | | | + + + + + + | MCH | 31.0Comment: Testing | 27.0 - 34.0 pg | EXTERNAL | | | | performed at [facility];[address] | | LAB | | | | [address];[place] | | | | | | [address] | | | | + + + + + + | MCHC | 32.6Comment: Testing | 32.0 - 35.5 | EXTERNAL | | | | performed at [facility];[address] | g/dL | LAB | | | | [address];[place] | | | | | | [address] | | | | + + + + + + | RDW-CV | 48.1Comment: Testing | 37 - 53 fl | EXTERNAL | | | | performed at [facility];[address] | | LAB | | | | [address];[place] | | | | | | [address] | | | | + + + + + + | Platelet | 165Comment: Testing | 150 - 400 K/uL | EXTERNAL | | | Count | performed at [facility];[address] | | LAB | | | Plasma | [address];[place] | | | | | | [address] | | | | + + + + + + | MPV | 9.5Comment: Testing | fl | EXTERNAL | | | | performed at [facility];[address] | | LAB | | | | [address];[place] | | | | | | [address] | | | | + + + + + + | Differentia | AUTOMATEDComment: | | EXTERNAL | | | l Type | Testing performed at | | LAB | | | | [facility];[address];[place] [address] | | | | + + + + + + | % Segmented | 79.71Comment: Testing | % | EXTERNAL | | | | performed at [facility];[address] | | LAB | | | Neutrophils | [address];[place] | | | | | | [address] | | | | + + + + + + | % | 12.56Comment: Testing | % | EXTERNAL | | | Lymphocytes | performed at [facility];[address] | | LAB | | | | [address];[place] | | | | | | [address] | | | | + + + + + + | % Monocytes | 6.71Comment: Testing | % | EXTERNAL | | | | performed at [facility];[address] | | LAB | | | | [address];[place] | | | | | | [address] | | | | + + + + + + | % | 0.69Comment: Testing | % | EXTERNAL | | | Eosinophils | performed at [facility];[address] | | LAB | | | | [address];[place] | | | | | | [address] | | | | + + + + + + | % Basophils | 0.33Comment: Testing | % | EXTERNAL | | | | performed at [facility];[address] | | LAB | | | | [address];[place] | | | | | | [address] | | | | + + + + + + | Absolute | 7.64 (H)Comment: Testing | 1.90 - 7.40 | EXTERNAL | | | Segmented | performed at [facility];[address] | K/uL | LAB | | | Neutrophils | [address];[place] | | | | | | [address] | | | | + + + + + + | Absolute | 1.20Comment: Testing | 1.00 - 3.90 | EXTERNAL | | | Lymphocytes | performed at [facility];[address] | K/uL | LAB | | | | [address];[place] | | | | | | [address] | | | | + + + + + + | Absolute | 0.64Comment: Testing | 0.00 - 0.80 | EXTERNAL | | | Monocytes | performed at [facility];[address] | K/uL | LAB | | | | [address];[place] | | | | | | [address] | | | | + + + + + + | Absolute | 0.07Comment: Testing | 0.00 - 0.50 | EXTERNAL | | | Eosinophils | performed at [facility];[address] | K/uL | LAB | | | | [address];[place] | | | | | | [address] | | | | + + + + + + | Absolute | 0.03Comment: Testing | 0.00 - 0.10 | EXTERNAL | | | Basophils | performed at [facility];[address] | K/uL | LAB | | | | [address];[place], [place] | | | | | | [address] | | | | + + + [...] [place] | | | | | | [address] | | | | + + + + + + | K | 4.0Comment: Testing | 3.5 - 4.9 | EXTERNAL | | | | performed at [facility];[address] | mmol/L | LAB | | | | [address];[place] | | | | | | [address] | | | | + + + + + + | Cl | 105Comment: Testing | 99 - 109 mmol/L | EXTERNAL | | | | performed at [facility];[address] | | LAB | | | | [address];[place] | | | | | | [address] | | | | + + + + + + | CO2 | 25Comment: Testing | 23 - 32 mmol/L | EXTERNAL | | | | performed at [facility];[address] | | LAB | | | | [address];[place] | | | | | | [address] | | | | + + + + + + | Anion Gap | 12Comment: Testing | 5 - 20 mmol/L | EXTERNAL | | | | performed at [facility];[address] | | LAB | | | | [address];[place] | | | | | | [address] | | | | + + + + + + | Glucose, | 114 (H)Comment: Testing | 65 - 99 mg/dL | EXTERNAL | | | Fasting | performed at [facility];[address] | | LAB | | | | [address];[place] | | | | | | [address] | | | | + + + + + + | BUN | 4 (L)Comment: Testing | 8 - 25 mg/dL | EXTERNAL | | | | performed at [facility];[address] | | LAB | | | | [address];[place] | | | | | | [address] | | | | + + + + + + | Creatinine | 0.73Comment: Testing | 0.70 - 1.30 | EXTERNAL | | | | performed at [facility];[address] | mg/dL | LAB | | | | [address];[place] | | | | | | [address] | | | | + + + + + + | BUN/Creatin | 5Comment: Testing | | EXTERNAL | | | ine Ratio | performed at [facility];[address] | | LAB | | | | [address];[place] | | | | | | [address] | | | | + + + + + + | Calcium | 8.3 (L)Comment: Testing | 8.5 - 10.5 | EXTERNAL | | | | performed at [facility];[address] | mg/dL | LAB | | | | [address];[place] | | | | | | [address] | | | | + + + + + + | Protein, | 7.7Comment: Testing | 6.3 - 8.2 g/dL | EXTERNAL | | | Total | performed at [facility];[address] | | LAB | | | | [address];[place] | | | | | | [address] | | | | + + + + + + | Albumin | 3.3 (L)Comment: Testing | 3.6 - 5.0 g/dL | EXTERNAL | | | | performed at [facility];[address] | | LAB | | | | [address];[place] | | | | | | [address] | | | | + + + + + + | Globulin | 4.4Comment: Testing | 1.3 - 4.9 g/dL | EXTERNAL | | | | performed at [facility];[address] | | LAB | | | | [address];[place] | | | | | | [address] | | | | + + + + + + | A/G Ratio | 0.7 (L)Comment: Testing | 1.0 - 2.4 | EXTERNAL | | | | performed at [facility];[address] | | LAB | | | | [address];[place] | | | | | | [address] | | | | + + + + + + | Bilirubin | 0.3Comment: Testing | 0.1 - 1.5 mg/dL | EXTERNAL | | | Total | performed at [facility];[address] | | LAB | | | | [address];[place] | | | | | | [address] | | | | + + + + + + | ALP, | 137 (H)Comment: Testing | 35 - 115 U/L | EXTERNAL | | | External | performed at [facility];[address] | | LAB | | | | [address];[place] | | | | | | [address] | | | | + + + + + + | AST | 37Comment: Testing | 10 - 45 U/L | EXTERNAL | | | | performed at [facility];[address] | | LAB | | | | [address];[place] | | | | | | [address] | | | | + + + + + + | ALT | 37Comment: Testing | 10 - 65 U/L | EXTERNAL | | | | performed at [facility];[address] | | LAB | | | | [address];[place] | | | | | | [address] | | | | + + + [...] | at [facility];[address];[place] [address] | | | | + + + [...]
--- OUTSIDE RECORDS SUMMARY | ~2020-04-05 | XMS | Encounter Summary ---
Demographics + + + | Address | [address] | | | [place] [address] | + + + | Home Phone [...] Team Providers + +------+ + | Care Wig Dresser Name | Role | Phone | + [...] Provider Unknown | | | | | [address], [place] | | | | | | [address] | (Fax) | | | | | [phone] | | | +--------+ + + + [...]
--- OUTSIDE RECORDS SUMMARY | ~2020-04-05 | XMS | Encounter Summary ---
Demographics + + + | Address | [address] | | | [place] [address] | + + + | Home Phone [...] + | Author | [facility] | | | and Olegarioana | + + + | Organization | [facility] | | [...] Team Providers + +------+ + | Care Granite Sandblaster Apprentice Name | Role | Phone | [...] Provider Unknown | | | | | [place], [place] | | | | | | [phone] | (Fax) | | | | | [...]
== END 2020-04-05 19:48 | disposition home or self-care (01) ==
LOC: ED 17:18
DX: R25.2 Cramp and spasm (principal); E11.9 Type 2 diabetes mellitus without complications; Z88.0 Allergy status to penicillin
CPT/HCPCS: 80053; 83735; 85025; 99283

== ENCOUNTER 2021-01-02 20:56 | Emergency (ER) | payer OTHER ==
[~2021-01-02] VITALS: Ht 177.8 cm; Wt 108.9 kg
--- OUTSIDE RECORDS SUMMARY | 2021-01-02 20:58 | XMS ---
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 No recent Security Events currently on file CRITERIA MET - [facility] Guidelines - History of Sepsis Dx CARE PROVIDERS Sonido Cartwright [facility] Current PHONE: [phone] TIMOTHY WARD [facility] 09/21/2018-[facility] PHONE: Unknown [facility] 08/24/2019-[facility] PHONE: [phone] Guidelines Source: [facility] Guidelines Date: 11/28/2019 Pain Management: ISAK [place],\T\nbsp;[facility] PCP\T\nbsp;\T\nbsp;treatment plan\T\nbsp;is physical therapy and no narcotics. High risk for overuse of narcotics [facility] has referred and scheduled appointment with physical therapy for evaluation and treatment. Established with [facility] Neurosurgery, Faustino Pfeiffer PA-C Care History Medical/Surgical 09/21/2018 [facility] \T\middot;\T\nbsp; PATIENT- [facility] ELIGIBLE \T\middot;\T\nbsp; PLEASE REFER PATIENT TO [facility] FOR NON EMERGENT MEDICAL NEEDS. \T\middot;\ T\nbsp; [facility] CAN SEE PATIENTS SAME DAY FOR APTS IF PATIENT CALLS FIRST THING IN THE MORNING. E.D. VISIT COUNT ([address] [facility] TOTAL 4 NOTE: Visits indicate total known visits. ED/UCC VISIT TRACKING (12 MO.) 01/02/2021 20:[address] [facility] [place] TYPE: Emergency COMPLAINT: - L AND R FOOT PAIN 04/05/2020 17:19 [facility] [place] TYPE: Emergency COMPLAINT: - HANDS, FEET, LEG CRAMPS DIAGNOSES: - Cramp and spasm - Type 2 diabetes mellitus without complications - Allergy status to penicillin 03/25/2020 22:[address] [facility] [place] TYPE: Emergency COMPLAINT: - FALL/BACK PAIN DIAGNOSES: - Allergy status to penicillin - Other chronic pain - Low back pain 01/06/2020 18:31 [facility] [place] TYPE: Emergency COMPLAINT: - BACK PAIN DIAGNOSES: - Pain in right arm - Other chronic pain - Low back pain - Other residential (current) drug therapy - Type 2 diabetes mellitus without complications - Allergy status to penicillin INPATIENT VISIT TRACKING (12 MO.) No inpatient visits to display in this time frame [email or web address]
--- NOTE | 2021-01-03 13:18 | EKG ---
[facility] [address] [place], [place] [address] Signed Normal sinus rhythm Right bundle branch block Abnormal ECG Confirmed by SONA BENNETT DO ([id number]) on 01/03/2021 1:18:43 PM Electronically Signed By: SONA BENNETT DO 01/03/21 1318 PATIENT NAME: EVANS VILLALPANDO Electrocardiogram DATE OF : 58 PHYSICIAN: SONA BENNETT DO REPORT #: [id number] REPORT IS CONFIDENTIAL AND NOT TO BE RELEASED WITHOUT AUTHORIZATION
== END 2021-01-02 23:58 | disposition home or self-care (01) ==
LOC: ED 20:56
DX: R60.0 Localized edema (principal); E11.9 Type 2 diabetes mellitus without complications; Z88.0 Allergy status to penicillin
CPT/HCPCS: 71045; 80053; 83735; 83880; 84443; 84484; 85025; 93005; 93010; 99284-25

== ENCOUNTER 2022-04-13 17:41 | Emergency (ER) | payer OTHER ==
[~2022-04-13] VITALS: Ht 177.8 cm; Wt 113.4 kg
[2022-04-13] MEDS ORDERED: PREDNISONE20 MG PO (19:21)
== END 2022-04-13 20:45 | disposition home or self-care (01) ==
LOC: ED 17:41
DX: T78.1XXA Other adverse food reactions, not elsewhere classified, initial encounter (principal); R22.0 Localized swelling, mass and lump, head; E11.9 Type 2 diabetes mellitus without complications; Z88.0 Allergy status to penicillin
CPT/HCPCS: J2930

== ENCOUNTER 2024-08-11 03:41 | Inpatient (IN) | payer OTHER ==
[~2024-08-11] VITALS: Ht 177.8 cm; Wt 57.0 kg
[~2024-08-11 03:41] MED LIST changes: +DOXYCYCLINE HY100 MG PO; +LIDOCAINE1 EACH TD; +LIDODERM1 EACH TOP; +LYRICA50 MG PO; +OXYCODONE HCL5 MG PO; +PREGABALIN50 MG PO
[2024-08-11] MEDS ORDERED: KETOROLAC TROMETHAMINE 15 MG/ML VIAL IV ONE (04:15)
[2024-08-11 04:22] LABS: BASOPHILS 1.4 % (0-2); EOSINOPHILS 0.9 % (0-6); HEMATOCRIT 35.5 % (35.0-50.0); HEMOGLOBIN 11.6 g/dL (12.0-18.0); LYMPHOCYTES 9.3 % (24-44); MCH 31.6 (27-36); MCHC 32.7 g/dl (30-36); MCV 96.8 fl (81-99); MONOCYTES 5.6 % (0-12); NEUTROPHILS 82.8 % (39-80); PLATELET COUNT 225 K/uL (140-440); RBC 3.66 M/ul (4.3-5.7); RDW 14.9 (10.5-15.0)
[2024-08-11 04:37] LABS: ALBUMIN 3.1 g/dL (3.4-5.0); ALBUMIN/GLOBULIN RATIO 0.69 (1.1-2.4); ANION GAP 17.7 (7-21); BILIRUBIN, TOTAL 0.3 ng/dL (0.2-1.0); BUN/CREATININE RATIO 15.58 (6.0-28.6); CALCIUM 8.2 mg/dL (8.5-10.1); CREATININE, SERUM 0.77 mg/dL (0.70-1.30); MAGNESIUM 2.2 mg/dL (1.8-2.4); POTASSIUM 3.7 mmol/L (3.5-5.1); PROTEIN, TOTAL 7.6 g/dL (6.4-8.2)
[2024-08-11 06:40] LABS: BILIRUBIN, URINE NEGATIVE (negative); BLOOD/HGB, URINE TRACE-I (Negative); KETONE, URINE NEGATIVE (Negative); LEUK ESTERASE, URINE NEGATIVE (negative); NITRITE, URINE NEGATIVE (negative); PH, URINE 6.5 (5-7)
[2024-08-11 06:46] LABS: EPITHELIAL CELLS, URINE SQUAMOUS 1+ /lpf (0-1+)
[2024-08-11 06:47] LABS: BACTERIA, URINE NONE SEEN /hpf (negative); CASTS, URINE NONE SEEN \\lpf; COLLECTION TYPE, URINE CLEAN CATCH; CRYSTALS, URINE NONE SEEN (0-1+); REFLEX CULTURE, URINE No (No)
[2024-08-11] MEDS ORDERED: ACETAMINOPHEN 325 MG TAB PO PRN (07:00)
[2024-08-11 07:30] VITALS: BP 124/74
--- NOTE | 2024-08-11 08:18 | NUR ---
PATIENT IN BED AT THIS TIME. RETAIL GROCER CHARTED PATIENTS BLOOD SUGAR AND DID HOURLY ROUNDS. CALL LIGHT WITHIN REACH, NO FURTHER NEEDS AT THIS TIME.
[2024-08-11] MEDS ORDERED: DOXYCYCLINE HY100 MG PO (08:26)
[2024-08-11] MEDS ORDERED: LIDODERM1 EACH TOP (08:27)
[2024-08-11] MEDS ORDERED: LYRICA50 MG PO (08:28)
--- NOTE | 2024-08-11 08:28 | NUR ---
MED REC COMPLETE
[2024-08-11 09:15] VITALS: BP 114/72
[2024-08-11] MEDS ORDERED: GLUCAGON,HUMAN RECOMBINANT 1 MG/ML VIAL SUB-Q PRN (09:15)
[2024-08-11] MEDS ORDERED: DEXTROSE 5% 1,000 ML IV PRN (09:15)
[2024-08-11] MEDS ORDERED: DEXTROSE 50% 50 ML SYR IV PRN ×2 (09:15)
[2024-08-11] MEDS ORDERED: IBLOOD GLUCOSE TEST STRIP 1 EA TEST XX PRN (09:15)
--- NOTE | 2024-08-11 09:49 | NUR ---
PATIENT IN BED AT THIS TIME. CLEANER HOUSEKEEPING CHARTED PATIENTS VITALS AND I&O'S. CALL LIGHT WITHIN REACH, NO FURTHER NEEDS AT THIS TIME.
[2024-08-11 10:30] VITALS: BP 114/72
--- NOTE | 2024-08-11 11:31 | NUR ---
Patient in bed at this time. COLORIST DYER went into patient room for hourly rounds. Call light within reach, no further needs at this time.
[2024-08-11] MEDS ORDERED: ondansetron HCL 4 MG/2 ML VIAL IV PRN (11:45)
[2024-08-11] MEDS ORDERED: IBUPROFEN 400 MG TAB PO PRN (11:45)
[2024-08-11] MEDS ORDERED: FOLIC ACID 1 MG TAB PO SCH (11:56)
[2024-08-11] MEDS ORDERED: THIAMINE HCL 100 MG TAB PO SCH (11:56)
[2024-08-11] MEDS ORDERED: PHARMACY RENAL DOSE ADJUSTMENT 1 DOSE MISC PO SCH (12:00)
[2024-08-11] MEDS ORDERED: INSULIN LISPRO 100 UNIT/ML ML SUB-Q SCH (12:00)
[2024-08-11] MEDS ORDERED: IBLOOD GLUCOSE TEST STRIP 1 EA TEST VI SCH (12:00)
[2024-08-11] MEDS ORDERED: LORazepam 1 MG TAB PO PRN (12:00)
[2024-08-11] MEDS ORDERED: LIDOCAINE PATCH REMOVAL 1 EA TD SCH (12:01)
[2024-08-11] MEDS ORDERED: DOXYCYCLINE HYCLATE 100 MG CAP PO SCH (12:01)
[2024-08-11] MEDS ORDERED: PREGABALIN 50 MG CAP PO SCH (12:01)
[2024-08-11] MEDS ORDERED: LIDOCAINE HCL 4% 1 EACH PATCH TD SCH (13:00)
[2024-08-11 13:30] VITALS: BP 137/91
[2024-08-11] MEDS ORDERED: MORPHINE SULFATE 4 MG/ML VIAL IV PRN (14:00)
--- NOTE | 2024-08-11 14:01 | NUR ---
PATIENT CONTINUES TO LIVE WITH [place] AND MULTIPLE OTHER PEOPLE. STATES HE IS WILLING TO GO TO ASSISTED LIVING, HOWEVER, HE DOES NOT HAVE THE FUNDS TO COVER COST. STATES HE PLANS ON KICKING EVERYBODY OUT OF THE HOUSE AND HAVING HIS DAUGHTER, MARZENA, MOVE IN WITH HIM. CALLED DAUGHTER, MARZENA. STATES SHE WILL NOT MOVE IN WITH PATIENT SHE HAS A SON AND DOES NOT WANT TO MOVE IN WITH HER FATHER DUE TO THE ENVIRONMENT AND THE PEOPLE LIVING WITH HIM. STATES SHE WOULD LIKE AN UPDATE ON PATIENT REGARDING DC PLAN BECAUSE SHE IS WILLING TO CHECK ON HIM IF NEEDED WHEN HE IS DISCHARGED. DISCUSSED PATIENT WITH DR. BHATTI. RECENT HIP XRAY THIS EVENING SHOWS FRACTURED FEMORAL NECK, ORTHO CONSULTED BY DR. BHATTI. VORB DR. BHATTI/ESTELA RN, TO CHANGE TO INPT STATUS.
--- NOTE | 2024-08-11 14:10 | NUR ---
UR CLINICAL REVIEW: [facility]- MEETS INPT CRITERIA FOR HIP FRACTURE. UNABLE TO DOCUMENT IN [facility] DUE TO ENCOUNTER BEING INACTIVE. BASIC DMAP (STATE MEDICAID) FROM OBS TO INPT 08/11/24 @ 8853 ORDER MATCHES REG NO AUTH REQUIRED PER MEDICAID RULES DC PLAN PENDING, [facility] [place]. 08/13/24
--- NOTE | 2024-08-11 14:25 | NUR ---
PT C/O PAIN 04/29 TO (R) HIP, PRN PAIN MEDS GIVEN - SEE NOV. PT ADVISED DUE TO NEW FINDING OF HIP FX, WE ARE GOING TO MAKE HIM NPO, EXPLAINED NOTHING TO EAT/DRINK AT THIS TIME. PT UNDERSTANDS BUT QUICKLY FORGETS TOO. WATER/DRINKS REMOVED FROM BEDSIDE TABLE. NPO SIGN ON DOOR. CALL LIGHT WITHIN REACH, ALL PT CARE NEEDS MET AT THIS TIME.
--- NOTE | 2024-08-11 16:47 | NUR ---
EMS HERE TO TRANSPORT PT. THIS RN GAVE EMS REPORT. PT MOVED TO STRETCHER VIA SLIDER SHEET.
--- NOTE | 2024-08-11 16:59 | NUR ---
CALLED [facility] AND GAVE REPORT TO MICHELL MORILLO. ALL QUESTIONS ANSWERED. YISEL, WILL CALL IN ANY QUESTIONS RISE.
[2024-08-12] MEDS ORDERED: LIDOCAINE PATCH REMOVAL 1 EA TD SCH (01:00)
[2024-08-12] MEDS ORDERED: ENOXAPARIN SODIUM 40 MG/0.4 ML SYR SUB-Q SCH (09:00)
== END 2024-08-11 16:57 | disposition short-term general hospital (02) | DRG 536 ==
LOC: ED 03:41 → MS 03:43 → ED 03:43 → MS 14:07
PROVIDERS: Internal Medicine; ADMIT Student in an Organized Health Care Education/Training Program; ATTEND Student in an Organized Health Care Education/Training Program
DX: S72.011A Unspecified intracapsular fracture of right femur, initial encounter for closed fracture (principal); S32.029A Unspecified fracture of second lumbar vertebra, initial encounter for closed fracture; M46.26 Osteomyelitis of vertebra, lumbar region; W18.30XA Fall on same level, unspecified, initial encounter; E11.9 Type 2 diabetes mellitus without complications; F10.229 Alcohol dependence with intoxication, unspecified; Y90.5 Blood alcohol level of 100-119 mg/100 ml; M21.051 Valgus deformity, not elsewhere classified, right hip; Z88.0 Allergy status to penicillin; Z98.890 Other specified postprocedural states; Z79.899 Other long term (current) drug therapy; Z86.73 Personal history of transient ischemic attack (TIA), and cerebral infarction without residual deficits
CPT/HCPCS: 36415; 70450; 72125; 72131; 73030; 73502; 73560; 73600; 80053; 81001; 83735; 85025; A9270; G0378; G0480; J1815; J1885; J2270

== ENCOUNTER 2024-10-03 03:51 | Emergency (ER) | payer OTHER ==
[~2024-10-03] VITALS: Ht 177.8 cm; Wt 98.9 kg
[2024-10-03] MEDS ORDERED: KETOROLAC TROMETHAMINE 15 MG/ML VIAL IV ONE (04:15)
[2024-10-03 04:22] LABS: HEMATOCRIT 33.7 % (35.0-50.0); MCH 29.9 (27-36); MCHC 32.7 g/dl (30-36); MCV 91.7 fl (81-99); PLATELET COUNT 205 K/uL (140-440); RBC 3.68 M/ul (4.3-5.7); RDW 14.3 (10.5-15.0)
[2024-10-03 04:34] LABS: BANDS, MANUAL DIFF 2; EOSINOPHILS, MANUAL DIFF 2; LYMPHOCYTES, MANUAL DIFF 18; MONOCYTES, MANUAL DIFF 4; NEUTROPHILS, MANUAL DIFF 74
[2024-10-03 04:36] LABS: ALBUMIN 3.2 g/dL (3.4-5.0); ALBUMIN/GLOBULIN RATIO 0.76 (1.1-2.4); ANION GAP 16.1 (7-21); BILIRUBIN, TOTAL 0.4 ng/dL (0.2-1.0); BUN/CREATININE RATIO 10.97 (6.0-28.6); CALCIUM 8.7 mg/dL (8.5-10.1); CREATININE, SERUM 0.82 mg/dL (0.70-1.30); POTASSIUM 4.1 mmol/L (3.5-5.1); PROTEIN, TOTAL 7.4 g/dL (6.4-8.2)
[2024-10-03] MEDS ORDERED: CHLORDIAZEPOXIDE 25 MG CAP PO ONE (06:15)
[2024-10-03 06:46] VITALS: BP 109/64
== END 2024-10-03 06:46 | disposition home or self-care (01) ==
LOC: ED 03:51
PROVIDERS: Internal Medicine
DX: M54.50 Low back pain, unspecified (principal); G89.29 Other chronic pain; M16.0 Bilateral primary osteoarthritis of hip; E11.9 Type 2 diabetes mellitus without complications; Z88.0 Allergy status to penicillin; Z79.899 Other long term (current) drug therapy
CPT/HCPCS: 36415; 72131; 72192; 73502; 80053; 85025; 85651; 86140; 96374; 99284-25; G0480; J1885

== ENCOUNTER 2024-10-08 11:03 | Emergency (ER) | payer OTHER ==
[~2024-10-08] VITALS: Ht 177.8 cm; Wt 97.1 kg
[2024-10-08] MEDS ORDERED: SODIUM CHLORIDE 0.9% 1,000 ML IV ONE (11:15)
[2024-10-08 11:23] LABS: BASOPHILS 0.3 % (0-2); EOSINOPHILS 1.1 % (0-6); HEMOGLOBIN 11.5 g/dL (12.0-18.0); LYMPHOCYTES 16.2 % (24-44); MCH 30.6 (27-36); MCHC 33.7 g/dl (30-36); MCV 90.8 fl (81-99); MONOCYTES 6.8 % (0-12); NEUTROPHILS 75.6 % (39-80); PLATELET COUNT 230 K/uL (140-440); RBC 3.75 M/ul (4.3-5.7); RDW 14.3 (10.5-15.0)
[2024-10-08 11:37] LABS: ALBUMIN 3.3 g/dL (3.4-5.0); ALCOHOL, MEDICAL <3 ng/dL (<3); ALKALINE PHOSPHATASE 132 U/L (46-116); ALT (SGPT) 20 U/L (14-59); ANION GAP 16.2 (7-21); AST (SGOT) 18 U/L (15-37); BILIRUBIN, TOTAL 0.7 ng/dL (0.2-1.0); BUN/CREATININE RATIO 12.16 (6.0-28.6); CALCIUM 8.9 mg/dL (8.5-10.1); CARBON DIOXIDE 23 mmol/L (21-32); CHLORIDE 104 mmol/L (98-107); CREATININE, SERUM 0.74 mg/dL (0.70-1.30); GLOMERULAR FILTRATION RATE,EST 101 mL/min (>60); POTASSIUM 3.2 mmol/L (3.5-5.1); PROTEIN, TOTAL 7.4 g/dL (6.4-8.2); UREA NITROGEN 9 mg/dL (7-18)
[2024-10-08 19:18] VITALS: BP 112/74
== END 2024-10-08 19:25 | disposition home or self-care (01) ==
LOC: ED 11:03
PROVIDERS: Emergency Medicine
DX: S13.9XXA Sprain of joints and ligaments of unspecified parts of neck, initial encounter (principal); E11.9 Type 2 diabetes mellitus without complications; W06.XXXA Fall from bed, initial encounter; Z79.899 Other long term (current) drug therapy; Z88.0 Allergy status to penicillin
CPT/HCPCS: 36415; 70450; 72125; 73080; 80053; 85025; 99284-25; G0480; J7030

== ENCOUNTER 2024-10-10 11:55 | Emergency (ER) | payer OTHER ==
[~2024-10-10] VITALS: Ht 177.8 cm; Wt 101.6 kg
[2024-10-10] MEDS ORDERED: NAPROSYN500 MG PO (12:41)
[2024-10-10] MEDS ORDERED: KETOROLAC TROMETHAMINE 15 MG/ML VIAL IM ONE (12:45)
[2024-10-10] MEDS ORDERED: NARCAN4 MG NS (13:12)
[2024-10-10] MEDS ORDERED: METHOCARBAMOL500 MG PO (13:13)
[2024-10-10] MEDS ORDERED: VITAMIN D3125 MC1 PO (13:14)
[2024-10-10] MEDS ORDERED: ACETAMINOPHEN325 M1 PO (13:16)
[2024-10-10] MEDS ORDERED: CALCIUM CARBON500 MG PO (13:16)
[2024-10-10] MEDS ORDERED: LIDOCAINE1 EACH TD (13:17)
[2024-10-10] MEDS ORDERED: DOXYCYCLINE HY100 MG PO (13:17)
[2024-10-10] MEDS ORDERED: COL-RITE100 MG PO (13:18)
[2024-10-10 13:20] VITALS: BP 131/73
== END 2024-10-10 13:20 | disposition home or self-care (01) ==
LOC: ED 11:55
DX: Z76.0 Encounter for issue of repeat prescription (principal); S16.1XXA Strain of muscle, fascia and tendon at neck level, initial encounter; W19.XXXA Unspecified fall, initial encounter; E11.9 Type 2 diabetes mellitus without complications; Z88.0 Allergy status to penicillin
CPT/HCPCS: 96372; 99283-25; J1885

== ENCOUNTER 2024-10-17 13:26 | Emergency (ER) | payer OTHER ==
[~2024-10-17] VITALS: Ht 177.8 cm; Wt 101.6 kg
[~2024-10-17 13:26] MED LIST changes: +ACETAMINOPHEN325 M1 PO; +CALCIUM CARBON500 MG PO; +COL-RITE100 MG PO; +METHOCARBAMOL500 MG PO; +NAPROSYN500 MG PO; +NARCAN4 MG NS; +VITAMIN D3125 MC1 PO
[2024-10-17 15:45] VITALS: BP 129/88
== END 2024-10-17 15:45 | disposition home or self-care (01) ==
LOC: ED 13:26
DX: M54.2 Cervicalgia (principal); M54.50 Low back pain, unspecified; G89.29 Other chronic pain; E11.9 Type 2 diabetes mellitus without complications; Z91.81 History of falling; Z86.73 Personal history of transient ischemic attack (TIA), and cerebral infarction without residual deficits; Z88.0 Allergy status to penicillin; Z79.899 Other long term (current) drug therapy
CPT/HCPCS: 99283

== ENCOUNTER 2024-11-08 02:11 | Emergency (ER) | payer OTHER ==
[~2024-11-08] VITALS: Ht 177.8 cm; Wt 109.8 kg
[2024-11-08 03:55] LABS: BASOPHILS 0.3 % (0-2); EOSINOPHILS 1.1 % (0-6); HEMATOCRIT 37.2 % (35.0-50.0); LYMPHOCYTES 24.6 % (24-44); MCH 29.4 (27-36); MCHC 32.4 g/dl (30-36); MONOCYTES 11.2 % (0-12); NEUTROPHILS 62.8 % (39-80); PLATELET COUNT 209 K/uL (140-440); RBC 4.09 M/ul (4.3-5.7); RDW 15.6 (10.5-15.0)
[2024-11-08 03:57] LABS: ALBUMIN 3.1 g/dL (3.4-5.0); ALBUMIN/GLOBULIN RATIO 0.62 (1.1-2.4); ALCOHOL, MEDICAL <3 ng/dL (<3); ALKALINE PHOSPHATASE 180 U/L (46-116); ALT (SGPT) 25 U/L (14-59); ANION GAP 15.6 (7-21); AST (SGOT) 29 U/L (15-37); BILIRUBIN, TOTAL 0.3 mg/dL (0.2-1.0); CALCIUM 8.9 mg/dL (8.5-10.1); CARBON DIOXIDE 23 mmol/L (21-32); CHLORIDE 103 mmol/L (98-107); GLOMERULAR FILTRATION RATE,EST 84 mL/min (>60); INR 1.03 (0.80-1.30); POTASSIUM 3.6 mmol/L (3.5-5.1); PROTEIN, TOTAL 8.1 g/dL (6.4-8.2); PROTIME 13.5 Sec (11.2-14.2); UREA NITROGEN 22 mg/dL (7-18)
[2024-11-08] MEDS ORDERED: MORPHINE SULFATE 4 MG/ML VIAL IV ONE (04:00)
[2024-11-08] MEDS ORDERED: ondansetron HCL 4 MG/2 ML VIAL IV ONE (04:00)
[2024-11-08] MEDS ORDERED: HYDROCODONE BIT/ACETAMINOPHEN 5/325 MG 1 TAB HOME.PACK PO ONE (04:30)
[2024-11-08 05:10] VITALS: BP 120/75
== END 2024-11-08 05:10 | disposition home or self-care (01) ==
LOC: ED 02:11
PROVIDERS: Family Medicine
DX: S50.01XA Contusion of right elbow, initial encounter (principal); S16.1XXA Strain of muscle, fascia and tendon at neck level, initial encounter; W19.XXXA Unspecified fall, initial encounter; E11.9 Type 2 diabetes mellitus without complications; Z87.81 Personal history of (healed) traumatic fracture; Z88.0 Allergy status to penicillin; Z79.899 Other long term (current) drug therapy
CPT/HCPCS: 36415; 70450; 72125; 72131; 72192; 73060; 73080; 80053; 80307; 85025; 85610; 96374; 96375; 99284-25; A9270; G0480; J2270; J2405

== ENCOUNTER 2024-11-17 03:29 | Emergency (ER) | payer OTHER ==
[~2024-11-17] VITALS: Ht 177.8 cm; Wt 91.6 kg
[2024-11-17] MEDS ORDERED: KETOROLAC TROMETHAMINE 30 MG/ML VIAL IM ONE (03:45)
[2024-11-17] MEDS ORDERED: MORPHINE SULFATE 4 MG/ML VIAL IV ONE (03:45)
[2024-11-17] MEDS ORDERED: MORPHINE SULFATE 10 MG/ML VIAL IM ONE (03:45)
[2024-11-17] MEDS ORDERED: KETOROLAC TROMETHAMINE 30 MG/ML VIAL IV ONE (03:45)
[2024-11-17] MEDS ORDERED: HYDROCODONE BIT/ACETAMINOPHEN 5/325 MG 1 TAB HOME.PACK PO ONE (04:00)
[2024-11-17 05:13] VITALS: BP 120/104
== END 2024-11-17 05:46 | disposition home or self-care (01) ==
LOC: ED 03:29
DX: M54.6 Pain in thoracic spine (principal); M25.521 Pain in right elbow; M25.551 Pain in right hip; E11.9 Type 2 diabetes mellitus without complications; Z87.820 Personal history of traumatic brain injury; Z87.81 Personal history of (healed) traumatic fracture; Z91.81 History of falling; Z86.73 Personal history of transient ischemic attack (TIA), and cerebral infarction without residual deficits; Z88.0 Allergy status to penicillin; Z79.899 Other long term (current) drug therapy
CPT/HCPCS: 96374; 96375; 99283-25; A9270; J1885; J2270

== ENCOUNTER 2024-12-14 21:30 | Emergency (ER) | payer OTHER ==
[~2024-12-14] VITALS: Ht 177.8 cm; Wt 91.8 kg
[2024-12-14] MEDS ORDERED: HYDROmorphone HCL 1 MG/ML SYR IV ONE (23:00)
[2024-12-14 23:10] LABS: BASOPHILS 0.4 % (0-2); EOSINOPHILS 1.1 % (0-6); HEMATOCRIT 39.9 % (35.0-50.0); HEMOGLOBIN 13.5 g/dL (12.0-18.0); LYMPHOCYTES 32.2 % (24-44); MCH 29.8 (27-36); MCHC 33.9 g/dl (30-36); MONOCYTES 8.6 % (0-12); NEUTROPHILS 57.7 % (39-80); PLATELET COUNT 222 K/uL (140-440); RBC 4.54 M/ul (4.3-5.7); RDW 16.6 (10.5-15.0)
[2024-12-14 23:26] LABS: ALBUMIN 3.7 g/dL (3.4-5.0); ALBUMIN/GLOBULIN RATIO 0.79 (1.1-2.4); ALCOHOL, MEDICAL <3 ng/dL (<3); ALKALINE PHOSPHATASE 130 U/L (46-116); ALT (SGPT) 25 U/L (14-59); ANION GAP 12.2 (7-21); AST (SGOT) 21 U/L (15-37); BILIRUBIN, TOTAL 0.5 mg/dL (0.2-1.0); BUN/CREATININE RATIO 20.27 (6.0-28.6); CALCIUM 9.4 mg/dL (8.5-10.1); CARBON DIOXIDE 26 mmol/L (21-32); CHLORIDE 100 mmol/L (98-107); CREATININE, SERUM 0.74 mg/dL (0.70-1.30); GLOMERULAR FILTRATION RATE,EST 101 mL/min (>60); POTASSIUM 4.2 mmol/L (3.5-5.1); PROTEIN, TOTAL 8.4 g/dL (6.4-8.2); UREA NITROGEN 15 mg/dL (7-18)
[2024-12-15 03:58] VITALS: BP 120/81
== END 2024-12-15 07:58 | disposition home or self-care (01) ==
LOC: ED 21:30
PROVIDERS: Internal Medicine
DX: S13.9XXA Sprain of joints and ligaments of unspecified parts of neck, initial encounter (principal); S70.01XA Contusion of right hip, initial encounter; W18.30XA Fall on same level, unspecified, initial encounter; E11.9 Type 2 diabetes mellitus without complications; Z79.899 Other long term (current) drug therapy; Z88.0 Allergy status to penicillin
CPT/HCPCS: 36415; 70450; 72125; 72131; 73080; 80053; 85025; 96374; 99284-25; G0480; J1171

== ENCOUNTER 2025-01-05 01:38 | Emergency (ER) | payer OTHER ==
[~2025-01-05] VITALS: Ht 177.8 cm; Wt 100.9 kg
[2025-01-05] MEDS ORDERED: IBUPROFEN 600 MG TAB PO ONE (02:15)
[2025-01-05 08:04] VITALS: BP 119/79
== END 2025-01-05 08:03 | disposition home or self-care (01) ==
LOC: ED 01:38
DX: M25.551 Pain in right hip (principal); G89.29 Other chronic pain; E11.9 Type 2 diabetes mellitus without complications; Z88.0 Allergy status to penicillin; Z79.2 Long term (current) use of antibiotics; Z79.899 Other long term (current) drug therapy
CPT/HCPCS: 73700; 99284-25; A9270

== ENCOUNTER 2025-01-19 20:34 | Emergency (ER) | payer OTHER ==
[~2025-01-19] VITALS: Ht 177.8 cm; Wt 100.9 kg
[2025-01-19] MEDS ORDERED: KETOROLAC TROMETHAMINE 60 MG/2 ML VIAL IM ONE (20:45)
[2025-01-19] MEDS ORDERED: HYDROCODONE/ACETA 5/325 TAB PO ONE (20:45)
[2025-01-19] MEDS ORDERED: diazePAM 10 MG/2 ML SYR IM ONE (20:45)
[2025-01-19] MEDS ORDERED: LIDOCAINE HCL 4% 1 EACH PATCH TD ONE (20:45)
[2025-01-19] MEDS ORDERED: HYDROCODON-ACE1 EA10 PO (21:02)
[2025-01-19] MEDS ORDERED: PERCOCET 5-3251 EACH PO ×2 (21:02→21:15)
[2025-01-19] MEDS ORDERED: METAMUCIL0.4 GM PO (21:03)
[2025-01-19] MEDS ORDERED: OXYCODONE/ACETAMINOPHEN 1 TAB HOME.PACK PO ONE (21:15)
[2025-01-19 21:40] VITALS: BP 120/92
== END 2025-01-19 21:40 | disposition home or self-care (01) ==
LOC: ED 20:34
DX: M54.50 Low back pain, unspecified (principal); G89.29 Other chronic pain; E11.9 Type 2 diabetes mellitus without complications; Z88.0 Allergy status to penicillin; Z79.899 Other long term (current) drug therapy; Z79.891 Long term (current) use of opiate analgesic
CPT/HCPCS: 96372; 99283; A9270; J1885; J3360

== ENCOUNTER 2025-06-20 13:38 | Emergency (ER) | payer OTHER ==
[~2025-06-20] VITALS: Ht 177.8 cm; Wt 100.9 kg
[~2025-06-20 13:38] MED LIST changes: +METAMUCIL0.4 GM PO
[2025-06-20] MEDS ORDERED: ANTIFUNGAL113 GM TOP (14:15)
[2025-06-20 14:26] VITALS: BP 106/84
== END 2025-06-20 14:30 | disposition home or self-care (01) ==
LOC: ED 13:38
DX: L30.4 Erythema intertrigo (principal); B36.8 Other specified superficial mycoses; E11.9 Type 2 diabetes mellitus without complications; Z91.81 History of falling; Z88.0 Allergy status to penicillin; Z79.899 Other long term (current) drug therapy
CPT/HCPCS: 99283